=== PATIENT | female | born 1965 | race Caucasian/White ===

== ENCOUNTER 2018-05-29 15:05 | Emergency (ER) | payer BC ==
[2018-05-29] MEDS ORDERED: LORazepam 2 MG/ML VIAL ONE (15:42)
[2018-05-29 15:47] LABS: Absolute Lymphocytes (CBC) 3.5 K/uL (0.7-4.9); Absolute Monocytes 0.7 K/uL (0.1-1.3); Absolute Neutrophil 4.9 K/uL (1.8-8.0); Basophils % 0.6 % (0-1.3); Hematocrit 38.6 % (36.0-45.0); Lymphocytes % 37.8 % (15.3-44.8); MCV 89.9 fL (80-100); MPV 7.3 fL (7.6-11.3); Monocytes % 7.4 % (3.3-12.3)
[2018-05-29 15:56] LABS: Protime INR 1.02
--- NOTE | 2018-05-29 15:57 | RAD REPORT ---
EXAM DESCRIPTION: Jesus Single View05/29/2018 3:47 pm CLINICAL HISTORY: Chest pain COMPARISON: August 2017 FINDINGS: The lungs appear clear of acute infiltrate. The heart is normal size IMPRESSION: No acute abnormalities displayed
[2018-05-29 15:59] LABS: ALT/SGPT 18 U/L (12-78); AST/SGOT 17 U/L (15-37); Albumin 3.6 g/dL (3.4-5.0); Alkaline Phosphatase 87 U/L (45-117); BUN Blood Urea Nitrogen 9 mg/dL (7-18); Bicarbonate 20 mmol/L (21-32); Bilirubin Direct < 0.1 mg/dL (0-0.2); Bilirubin Total 0.2 mg/dL (0.2-1.0); Glucose Level 98 mg/dL (74-106); Magnesium 1.9 mg/dL (1.8-2.4); NT PRO-BNP 234 pg/mL (<125); Protein, Total 6.6 g/dL (6.4-8.2); Sodium Level 127 mmol/L (136-145)
[2018-05-29] MEDS ORDERED: NA CHLORIDE 0.9% 1,000 ML ONE (16:52)
--- NOTE | 2018-05-29 17:31 | ER ---
Nurse's Notes [facility] Name: Pratibha Jennings Age: 52 yrs Sex: Female : 1965 Arrival Date: 05/29/2018 Time: 15:08 Bed 6 Private MD: Joseph Rouse T Diagnosis: Anxiety disorder, unspecified;Essential (primary) hypertension Presentation: 05/29 15:17 Presenting complaint: Patient states: problems for two weeks. today is worse. headache, ch feeling like my heart is beating in my chest, nausea. before I came in, my blood pressure was 197/122, and my heart rate was 130. I feel SOB and extremely nauseous. two weeks ago I abruptly stopped my duloxitine, and then these issues started. Transition of care: patient was not received from another setting of care. Onset of symptoms was May 14, 2018. Risk Assessment: Do you want to hurt yourself or someone else? Patient reports no desire to harm self or others. Initial Sepsis Screen: Does the patient meet any 2 criteria? No. Patient's initial sepsis screen is negative. Does the patient have a suspected source of infection? No. Patient's initial sepsis screen is negative. Care prior to arrival: None. 15:17 Method Of Arrival: Ambulatory 15:17 Acuity: NUSRAT 3 ch Triage Assessment: 15:21 General: Appears in no apparent distress. comfortable, Behavior is calm, cooperative, ch appropriate for age. Pain: Complains of pain in head Pain currently is 8 out of 10 on a pain scale. Pain began gradually, weeks ago. Neuro: Level of Consciousness is awake, alert, obeys commands, Oriented to person, place, time, situation, Carpenter/Labor are equal bilaterally Moves all extremities. Full function Gait is steady, Speech is normal, Facial symmetry appears normal, Facial symmetry: tongue is midline, Pupils are PERRLA, Reports dizziness, headache. Cardiovascular: Reports chest pain, lightheadedness, nausea, palpitations, shortness of breath, Heart tones S1 S2 present Capillary refill < 3 seconds in bilateral fingers toes Clubbing of nail beds is absent Patient's skin is warm and dry. Pulses are all present. Edema is absent. Rhythm is sinus rhythm Chest pain is denied pt describes her chest pressure and feeling her heart pounding. Respiratory: Reports shortness of breath Airway is patent Respiratory effort is even, unlabored, Breath sounds are clear bilaterally. GI: Abdomen is round non-distended, Bowel sounds present X 4 quads. Abd is soft and non tender X 4 quads. Reports constipation. Derm: Skin is pink, warm \T\ dry. 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 - Social history:: Smoking status: Patient uses tobacco products, smokes one-half pack cigarettes per day, Patient uses alcohol, occasionally. Patient/guardian denies using street drugs. - Ebola Screening: : Patient negative for fever greater than or equal to 101.5 degrees Fahrenheit, and additional compatible Ebola Virus Disease symptoms Patient denies exposure to infectious person Patient denies travel to an Ebola-affected area in the 21 days before illness onset No symptoms or risks identified at this time. Screenin:25 Abuse screen: Denies threats or abuse. Denies injuries from another. Nutritional screening: No deficits noted. Tuberculosis screening: No symptoms or risk factors identified. Fall Risk None identified. Assessment: 15:25 Reassessment: Patient appears in no apparent distress at this time. Patient and/or family updated on plan of care and expected duration. Pain level reassessed. Patient is alert, oriented x 3, equal unlabored respirations, skin warm/dry/pink. General: Behavior is anxious. GI: Reports constipation, nausea. 15:35 Reassessment: Patient appears in no apparent distress at this time. No changes from previously documented assessment. Patient and/or family updated on plan of care and expected duration. Pain level reassessed. Patient is alert, oriented x 3, equal unlabored respirations, skin warm/dry/pink. GI: Abdomen is round non-distended, Bowel sounds present X 4 quads. Abd is soft and non tender X 4 quads. Reports. 17:01 Reassessment: Patient appears in no apparent distress at this time. Patient and/or family updated on plan of care and expected duration. Pain level reassessed. Patient is alert, oriented x 3, equal unlabored respirations, skin warm/dry/pink. pt sleeping in room states she feels much better. 17:38 Reassessment: p refuses to give urine sample for fourth time. pt to be discharged per eliezer. Vital Signs: 15:21 BP 147 / 97; Pulse 99; Resp 22; Temp 97.7; Pulse Ox 99% on R/A; Weight 58.06 kg; Height 5 ft. 5 in. (165.10 cm); Pain 8/10; 17:01 BP 125 / 88; Pulse 82; Resp 12; Temp 97.3; Pulse Ox 97% on R/A; Pain 0/10; ch 17:38 BP 166 / 81; Pulse 83; Resp 14; Temp 97.6; Pulse Ox 99% on R/A; Pain 0/10; ch 15:21 Body Mass Index 21.30 (58.06 kg, 165.10 cm) ED Course: 15:08 Patient arrived in ED. mr 15:08 Joseph Rouse MD is Private Physician. mr 15:12 [facility] Bren[facility]. jr8 15:13 Fransico Garrido MD is Attending Physician. jr8 15:16 Mayte Landa, ANGELA is Primary Nurse. 15:19 Triage completed. 15:21 Arm band placed on left wrist. Patient placed in an exam room, on a stretcher, on air sampling and monitoring, on pulse oximetry. 15:25 No apparent distress. Resting quietly. 15:25 Patient has correct armband on for positive identification. Placed in gown. Bed in low position. Call light in reach. Side rails up X 1. Adult w/ patient. 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 Pulse ox on. NIBP on. Warm blanket given. 15:25 No provider procedures requiring assistance completed. 15:32 EKG done, by dental laboratory technology teacher. reviewed by Eliezer DOWLING. sm3 15:35 Inserted saline lock: 20 gauge in right forearm, using aseptic technique. Blood ch collected. 15:36 Basic Metabolic Panel Sent. ch 15:37 CBC with Diff Sent. ch 15:37 LFT's Sent. ch 15:37 Magnesium Sent. ch 15:37 NT PRO-BNP Sent. ch 15:37 PT-INR Sent. ch 15:37 Troponin (emerg Dept Use Only) Sent. ch 15:40 [facility]iezer Brenner [facility]. jr8 15:43 X-ray completed. Portable x-ray completed in exam room. Patient tolerated procedure jr1 well. 15:44 XRAY Chest (1 view) In Process Unspecified. EDMS 17:19 Von Chaves MD is Referral Physician. jr8 17:38 IV discontinued, intact, bleeding controlled, No redness/swelling at site. Pressure ch dressing applied. Administered Medications: 15:45 Drug: Ativan 1 mg Route: IVP; Site: right forearm; ch 17:03 Follow up: Response: No adverse reaction; Marked relief of symptoms ch 16:40 Drug: NS 0.9% 1000 ml Route: IV; Rate: 1000 ml; Site: right forearm; ch 17:40 Follow up: IV Status: Completed infusion; IV Intake: 1000ml ch Intake: 17:40 IV: 1000ml; Total: 1000ml. ch Outcome: 17:20 Discharge ordered by . jr8 17:38 Discharged to home ambulatory, with family. ch 17:38 Condition: stable 17:38 Discharge instructions given to patient, family, Instructed on discharge instructions, follow up and referral plans. no drinking with medication, medication usage, Demonstrated understanding of instructions, follow-up care, medications, Prescriptions given X 1. 17:43 Patient left the ED. ch Signatures: Dispatcher [employer] EDMS Mayte Landa, RN RN Jayna Ivan mr Kay, Roselia jr1 Eliezer Brenner PA PA jr8 Sully Antonio 3
--- NOTE | 2018-05-29 17:31 | EDPHYS ---
Physician Documentation [facility] Name: Pratibha Jennings Age: 52 yrs Sex: Female : 1965 Arrival Date: 05/29/2018 Time: 15:08 Bed 6 Private MD: Joseph Rouse T ED Physician Fransico Garrido HPI: 05/29 15:29 This 52 yrs old Female presents to ER via Ambulatory with complaints of High jr8 Blood Pressure, Nausea, Breathing Difficulty. 15:29 Onset: The symptoms/episode began/occurred acutely, today. Modifying factors: The jr8 symptoms are aggravated by activity, stress. Associated signs and symptoms: Pertinent positives: chest pain, dyspnea, nausea. Severity of symptoms: At its worst the blood pressure was moderate, in the emergency department the blood pressure is improved. The patient has experienced a previous episode. The patient has not recently seen a physician. Patient stated that she recently discontinued her duloxetine about 2 weeks ago. Since then has had increased blood pressure and anxiety. Now feels short of breath and has had chest tightness. Today became increasingly worse. Stated that her blood pressure was 190/110 . 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 ch Historical: - Allergies: 15:21 Iodine; ch - Home Meds: 15:21 Ambien 5 mg Oral tab 1 tab once daily [Active]; gabapentin 600 mg Oral tab 1 tab daily ch [Active]; morphine 15 mg Oral tab 1 tab every 4 hours [Active]; tizanidine 4 mg Oral cap 1 cap [Active]; Lipitor 40 mg Oral tab 1 tab once daily [Active]; lidocaine patch [Active]; - PMHx: 15:21 Back pain; Degenerative disc disease; Hypertension; Hyperlipidemia; Chronic pain; ch - PSHx: 15:21 back surgeries; heath knee; ch - Immunization history:: Adult Immunizations up to date, Last tetanus immunization: up to date Flu vaccine is up to date. - Social history:: Smoking status: Patient uses tobacco products, smokes one-half pack cigarettes per day, Patient uses alcohol, occasionally. Patient/guardian denies using street drugs. - Ebola Screening: : Patient negative for fever greater than or equal to 101.5 degrees Fahrenheit, and additional compatible Ebola Virus Disease symptoms Patient denies exposure to infectious person Patient denies travel to an Ebola-affected area in the 21 days before illness onset No symptoms or risks identified at this time. ROS: 15:54 Eyes: Negative for injury, pain, redness, and discharge, ENT: Negative for injury, jr8 pain, and discharge, Neck: Negative for injury, pain, and swelling, Back: Negative for injury and pain, MS/Extremity: Negative for injury and deformity, Skin: Negative for injury, rash, and discoloration, Neuro: Negative for headache, weakness, numbness, tingling, and seizure. 15:54 Cardiovascular: Positive for chest pain, Negative for edema, orthopnea, palpitations, paroxysmal nocturnal dyspnea. 15:54 Respiratory: Positive for shortness of breath, Negative for cough, dyspnea on exertion, hemoptysis, orthopnea, pleurisy, sputum production. 15:54 Abdomen/GI: Positive for nausea, Negative for abdominal pain, vomiting, diarrhea, abdominal cramps, abdominal distension, anorexia, dysphagia, hematemesis, black/tarry stool, rectal pain, rectal bleeding, bowel incontinence, flatulence. Exam: 16:17 Eyes: Pupils equal round and reactive to light, extra-ocular motions intact. Lids and jr8 lashes normal. Conjunctiva and sclera are non-icteric and not injected. Cornea within normal limits. Periorbital areas with no swelling, redness, or edema. ENT: Nares patent. No nasal discharge, no septal abnormalities noted. Tympanic membranes are normal and external auditory canals are clear. Oropharynx with no redness, swelling, or masses, exudates, or evidence of obstruction, uvula midline. Mucous membranes moist. Neck: Trachea midline, no thyromegaly or masses palpated, and no cervical lymphadenopathy. Supple, full range of motion without nuchal rigidity, or vertebral point tenderness. No Meningismus. Chest/axilla: Normal chest wall appearance and motion. Nontender with no deformity. No lesions are appreciated. Cardiovascular: Regular rate and rhythm with a normal S1 and S2. No gallops, murmurs, or rubs. Normal PMI, no JVD. No pulse deficits. Respiratory: Lungs have equal breath sounds bilaterally, clear to auscultation and percussion. No rales, rhonchi or wheezes noted. No increased work of breathing, no retractions or nasal flaring. Abdomen/GI: Soft, non-tender, with normal bowel sounds. No distension or tympany. No guarding or rebound. No evidence of tenderness throughout. Back: No spinal tenderness. No costovertebral tenderness. Full range of motion. Skin: Warm, dry with normal turgor. Normal color with no rashes, no lesions, and no evidence of cellulitis. MS/ Extremity: Pulses equal, no cyanosis. Neurovascular intact. Full, normal range of motion. Neuro: Awake and alert, GCS 15, oriented to person, place, time, and situation. Cranial nerves II-XII grossly intact. Motor strength 5/5 in all extremities. Sensory grossly intact. Cerebellar exam normal. Normal gait. 16:17 Constitutional: The patient appears alert, awake, anxious. 16:17 ECG was reviewed by the Attending Physician. Vital Signs: 15:21 BP 147 / 97; Pulse 99; Resp 22; Temp 97.7; Pulse Ox 99% on R/A; Weight 58.06 kg; Height ch 5 ft. 5 in. (165.10 cm); Pain 8/10; 17:01 BP 125 / 88; Pulse 82; Resp 12; Temp 97.3; Pulse Ox 97% on R/A; Pain 0/10; ch 17:38 BP 166 / 81; Pulse 83; Resp 14; Temp 97.6; Pulse Ox 99% on R/A; Pain 0/10; ch 15:21 Body Mass Index 21.30 (58.06 kg, 165.10 cm) ch MDM: 15:13 Patient medically screened. [facility] 17:23 Data reviewed: vital signs, nurses notes, lab test result(s), EKG, radiologic studies, [facility] plain films, and as a result, I will discharge patient. Data interpreted: Pulse oximetry: on room air is 97 %. Interpretation: normal. Counseling: I had a detailed discussion with the patient and/or guardian regarding: the historical points, exam findings, and any diagnostic results supporting the discharge/admit diagnosis, lab results, radiology results, the need for outpatient follow up, a family practitioner, to return to the emergency department if symptoms worsen or persist or if there are any questions or concerns that arise at home. Response to treatment: the patient's symptoms have markedly improved after treatment. ED course: Patient feeling much better. Explained to her that she has probably a mild hypertension that needs further f/u and treatment. Needs to be back on anti anxiety medication as well. Family and patient agrees and will follow up with PCP in next 48 hours . 05/29 15:28 Order name: Basic Metabolic Panel; Complete Time: 16:05/29 15:28 Order name: CBC with Diff; Complete Time: 16:05/29 15:28 Order name: LFT's; Complete Time: 16:05/29 15:28 Order name: Magnesium; Complete Time: 16:05/29 15:28 Order name: NT PRO-BNP; Complete Time: 16:05/29 15:28 Order name: PT-INR; Complete Time: 16:05/29 15:28 Order name: Troponin (emerg Dept Use Only); Complete Time: 16:05/29 15:28 Order name: XRAY Chest (1 view); Complete Time: 16:05/29 15:28 Order name: EKG; Complete Time: 15:30 05/29 15:28 Order name: Cardiac monitoring; Complete Time: 15:05/29 15:28 Order name: DD; Complete Time: 16:05/29 15:28 Order name: EKG - Nurse/Tech; Complete Time: 15:05/29 15:28 Order name: IV Saline Lock; Complete Time: :05/29 15:28 Order name: Labs collected and sent; Complete Time: 15:05/29 15:28 Order name: O2 Per Protocol; Complete Time: 15:05/29 15:28 Order name: O2 Sat Monitoring; Complete Time: :36 EC:17 Rate is 92 beats/min. Rhythm is regular, Normal Sinus Rhythm. QRS Jenkins is Normal. [place] jr8 interval is normal at 132 msec. QRS interval is normal at 78 msec. QT interval is normal at 417 msec. No Q waves. T waves are Flattened in lead aVL. No ST changes noted. Clinical impression: NSR w/ Non-specific ST/T Changes and LVH. Interpreted by me. Reviewed by me. Administered Medications: 15:45 Drug: Ativan 1 mg Route: IVP; Site: right forearm; 17:03 Follow up: Response: No adverse reaction; Marked relief of symptoms 16:40 Drug: NS 0.9% 1000 ml Route: IV; Rate: 1000 ml; Site: right forearm; 17:40 Follow up: IV Status: Completed infusion; IV Intake: 1000ml Disposition: 05/30 15:56 Co-signature as Attending Physician, Fransico Garrido MD Available for consultation at ps1 all times.. Disposition: 05/29/18 17:20 Discharged to Home. Impression: Anxiety disorder, unspecified, Essential (primary) hypertension. - Condition is Stable. - Discharge Instructions: Panic Attacks, Hypertension, Generalized Anxiety Disorder. - Prescriptions for Hydroxyzine HCl 50 mg Oral Tablet - take 1 tablet by ORAL route every 8 hours As needed; 20 tablet. - Medication Reconciliation Form, Thank You Letter, Antibiotic Education, Prescription Opioid Use form. - Follow up: Von Chaves MD; When: 1 - 2 days; Reason: Recheck today's complaints, Continuance of care, Re-evaluation by your physician. - Problem is new. - Symptoms have improved. Signatures: Dispatcher [employer] EDWA Mayte Landa RN RN Eliezer Brenner PA PA jr8 Fransico Garrido MD MD ps1 Corrections: (The following items were deleted from the chart) 05/29 17:43 17:20 05/29/2018 17:20 Discharged to Home. Impression: Anxiety disorder, unspecified; ch Essential (primary) hypertension. Condition is Stable. Forms are Medication Reconciliation Form, Thank You Letter, Antibiotic Education, Prescription Opioid Use. Follow up: Von Chaves; When: 1 - 2 days; Reason: Recheck today's complaints, Continuance of care, Re-evaluation by your physician. Problem is new. Symptoms have improved. jr8
--- NOTE | 2018-05-29 22:13 | EKG ---
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
== END 2018-05-29 17:43 | disposition home or self-care (01) ==
LOC: ER 15:05
DX: F41.9 Anxiety disorder, unspecified (principal); I10 Essential (primary) hypertension; E78.5 Hyperlipidemia, unspecified; F17.210 Nicotine dependence, cigarettes, uncomplicated; Z91.048 Other nonmedicinal substance allergy status
CPT/HCPCS: 36415; 71045; 80048; 80076; 83735; 83880; 84484; 85025; 85379; 85610; 93005; 96361; 96374; 99285; J7030

== ENCOUNTER 2018-06-02 15:42 | Emergency (ER) | payer BC ==
--- OUTSIDE RECORDS SUMMARY | 2018-06-02 15:45 | XMS REPORT | Clinical Summary ---
:1965 Author Organization [facility] Address [address] [place] [address] Care Team Providers Name Role Phone Provider, Unknown Primary Care Provider Unavailable Allergies Active Allergy Reactions Severity Noted Date Comments Betadine Surgi-Prep Hives, Rash Low 03/31/2016 Patient reports blistering and rash Patient reports blistering and rash Dye 01/04/2018 Radiology DYE Contrast Current Medications Prescription Sig. Disp. Refills Start Date End Date Status zolpidem (AMBIEN) 5 Take 5 mg by Active MG tablet mouth nightly as needed for sleep. gabapentin Take 600 mg by Active (NEURONTIN) 600 mg mouth 3 (three) tablet times a day. morPHINE (MSIR) 15 Take 15 mg by Active MG tablet mouth every 12 (twelve) hours as needed for severe pain. oxyCODone Take 10 mg by Active (ROXICODONE) 10 MG mouth every 6 tablet (six) hours as needed for moderate pain. tiZANidine Take 4 mg by Active (ZANAFLEX) 4 MG mouth every 8 tablet (eight) hours as needed for muscle spasms. ondansetron ODT Take 4 mg by Active (ZOFRAN-ODT) 4 MG mouth every 8 disintegrating (eight) hours as tablet needed for nausea or vomiting. atorvastatin Take 1 tablet by 2 01/11/2018 Active (LIPITOR) 20 MG mouth daily. tablet pantoprazole Take 1 tablet by 0 01/05/2018 Active (PROTONIX) 40 MG EC mouth daily. tablet metoprolol tartrate Take 25 mg by 10/06/20 Discontinued (LOPRESSOR) 25 mg mouth 2 (two) 17 tablet times a day. diazePAM (VALIUM) 5 Take 5 mg by 01/04/20 Discontinued MG tablet mouth every 6 18 (six) hours as needed for anxiety. enalapril (VASOTEC) Take 20 mg by 10/06/20 Discontinued 20 MG tablet mouth daily. 17 tiZANidine Take 1 tablet by 10/06/20 Discontinued (ZANAFLEX) 4 MG mouth 3 (three) 17 tablet times a day. oxyCODone Take 1 tablet by 10/06/20 Discontinued (ROXICODONE) 10 MG mouth 4 (four) 17 tablet times a day. morPHINE (MSIR) 15 Take 1 tablet (15 10/06/2017 10/21/20 MG tablet mg total) by 17 mouth every 12 (twelve) hours for 15 days Earliest Fill Date: 10/06/17. Max Daily Amount: 30 mg atorvastatin Take 1 tablet (40 30 tablet 0 10/06/2017 11/05/20 (LIPITOR) 40 MG mg total) by 17 tablet mouth nightly for 30 days. benzonatate Take 1 capsule 10/06/2017 11/05/20 (TESSALON) 100 MG (100 mg total) by 17 capsule mouth 3 (three) times a day as needed for cough for up to 30 days. ipratropium-albuter Take 3 mL by 540 mL 0 10/06/2017 11/05/20 ol (DUO-NEB) nebulization 17 0.5-2.5 mg/mL every 4 (four) nebulizer hours for 30 days. enoxaparin Inject 0.4 mL (40 12 mL 0 10/06/2017 10/21/20 (LOVENOX) 40 mg/0.4 mg total) under 17 mL syringe the skin daily for 15 days. nafcillin (UNIPEN) Infuse 2 g into a 10/06/2017 10/23/20 2 grams in 100 mL venous catheter 17 Mini-Bag Plus every 4 (four) hours for 17 days. potassium chloride Take 3 tablets 90 tablet 0 10/06/2017 10/06/20 Discontinued (K-DUR) 20 MEQ CR (60 mEq total) by 17 tablet mouth daily for 30 days. nystatin Apply topically 2 15 g 0 10/06/2017 11/05/20 (MYCOSTATIN) (two) times a day 17 100,000 unit/gram as needed (fungal powder infections) for up to [address] 2 patches 30 patch 0 10/06/2017 11/05/20 (LIDODERM) 5 % on the skin daily 17 for 30 days. Remove & Discard patch within 12 hours or as directed by SYMBICORT 80-4.5 Inhale 2 puffs 2 4 11/05/2017 01/19/20 Discontinued mcg/actuation (two) times a 18 inhaler day. Active Problems Problem Noted Date Gastroesophageal reflux disease 01/20/2018 Cavitary lesion of lung 01/04/2018 Hemoptysis 01/04/2018 History of tobacco use 01/04/2018 Chronic obstructive pulmonary disease 01/04/2018 Septic shock 09/25/2017 Acute respiratory failure 09/25/2017 Hyponatremia 09/25/2017 Elevated troponin 09/25/2017 Encounters Date Type Specialty Care Team Description 01/19/2018 Office Visit Pulmonology Ravi Abreu Chronic obstructive pulmonary disease, unspecified COPD type (Primary Dx); MD Isaiah Cavitary lesion of lung; History of tobacco use; Gastroesophageal reflux disease, esophagitis presence not specified 01/19/2018 Clinical Support Pulmonology Mary Cavitary lesion of lung; Melisa Hemoptysis 01/19/2018 Hospital Encounter Radiology Ravi Abreu Cavitary lesion of lung; MD Isaiah Hemoptysis 01/04/2018 Office Visit Pulmonology Ravi Abreu Cavitary lesion of lung ( Primary Dx); MD Isaiah Hemoptysis; History of tobacco abuse; Chronic obstructive pulmonary disease, unspecified COPD type 01/04/2018 Hospital Encounter Radiology Bernardino Shah, Pneumonia, organism unspecified(486); Postoperative septicemia 01/04/2018 Transcribe Orders Radiology Bernardino Shah, Pneumonia, organism unspecified(486) (Primary Dx); Postoperative septicemia 09/25/2017 - Hospital Encounter General Internal Todd Conte Elevated troponin (Primary Dx); 10/06/2017 Vania Garduno MD Septic shock; Ravindra Shah Acute respiratory failure with hypoxia; MD Teresa Hyponatremia after 06/01/2017 Immunizations Name Dates Previously Given Next Due FLUCELVAX QUAD PF (0.5mL syringe) 10/06/2017 Pneumococcal Conjugate 13-Valent 10/06/2017 Social History Tobacco Use Types Packs/Day Years Used Date Former Smoker Cigarettes 0.5 7 Quit: 08/28/2017 Smokeless Tobacco: Never Used Tobacco Cessation: Ready to Quit: Yes; Counseling Given: Yes Alcohol Use Drinks/Week oz/Week Comments No Sex Assigned at Date Recorded Not on file Last Filed Vital Signs Vital Sign Reading Time Taken Blood Pressure 124/76 01/19/2018 11:58 AM HAIR ASSISTANT Pulse 62 01/19/2018 11:58 AM HAIR ASSISTANT Temperature 36.3 C (97.4 F) 01/19/2018 11:58 AM HAIR ASSISTANT Respiratory Rate 20 10/06/2017 3:01 PM HAIR ASSISTANT Oxygen Saturation 100% 01/19/2018 11:58 AM HAIR ASSISTANT Inhaled Oxygen Concentration - - Weight 62.1 kg (137 lb) 01/19/2018 11:58 AM HAIR ASSISTANT Height 163.8 cm (5' 4.5") 01/19/2018 11:58 AM HAIR ASSISTANT Body Mass Index 23.15 01/19/2018 11:58 AM HAIR ASSISTANT Plan of Treatment Health Maintenance Due Date Last Done Comments CERVICAL CANCER SCREENING 1985 BREAST CANCER SCREENING 2014 SHINGRIX VACCINE (#1) 2014 INFLUENZA VACCINE 06/28/2018 10/06/2017 COLON CANCER SCREENING 10/06/2027 10/06/2017, 09/26/2017 Implants Implanted Type Area Payroll Services Analyst Device Expiration Date Model / Serial Identifier / Lot Stimulator Stimulator MEDTRONIC / / Procedures Procedure Name Priority Date/Time Associated Comments Diagnosis CT CHEST WO CONTRAST Routine 01/19/2018 9:26 Cavitary lesion of Results for this AM HAIR ASSISTANT lung procedure are in Hemoptysis the results section. XR CHEST 2 VW Routine 01/04/2018 12:09 Pneumonia, Results for this PM HAIR ASSISTANT organism procedure are in unspecified(486) the results Postoperative section. septicemia ESTIMATED GFR Routine 10/06/2017 12:30 Results for this PM HAIR ASSISTANT procedure are in the results section. MAGNESIUM LEVEL Routine 10/06/2017 12:30 Results for this PM HAIR ASSISTANT procedure are in the results section. COMPREHENSIVE METABOLIC Routine 10/06/2017 12:30 Results for this PANEL PM HAIR ASSISTANT procedure are in the results section. HC COMPLETE BLD COUNT Routine 10/06/2017 12:30 Results for this W/AUTO DIFF PM HAIR ASSISTANT procedure are in the results section. OCCULT BLOOD, STOOL Routine 10/06/2017 7:30 Results for this AM HAIR ASSISTANT procedure are in the results section. TRANSFUSE RED BLOOD Routine 10/06/2017 3:58 CELLS AM HAIR ASSISTANT PREPARE RBC Timed 10/05/2017 6:35 Results for this PM HAIR ASSISTANT procedure are in the results section. TYPE AND SCREEN Timed 10/05/2017 6:35 Results for this PM HAIR ASSISTANT procedure are in the results section. XR CHEST 1 VW PORTABLE Routine 10/05/2017 6:48 Results for this AM HAIR ASSISTANT procedure are in the results section. ESTIMATED GFR Routine 10/05/2017 6:10 Results for this AM HAIR ASSISTANT procedure are in the results section. HC COMPLETE BLD COUNT Routine 10/05/2017 6:10 Results for this W/AUTO DIFF AM HAIR ASSISTANT procedure are in the results section. COMPREHENSIVE METABOLIC Routine 10/05/2017 6:10 Results for this PANEL AM HAIR ASSISTANT procedure are in the results section. ESTIMATED GFR Routine 10/04/2017 8:40 Results for this PM HAIR ASSISTANT procedure are in the results section. MAGNESIUM LEVEL Routine 10/04/2017 8:40 Results for this PM HAIR ASSISTANT procedure are in the results section. HC COMPLETE BLD COUNT Routine 10/04/2017 8:40 Results for this W/AUTO DIFF PM HAIR ASSISTANT procedure are in the results section. BASIC METABOLIC PANEL Routine 10/04/2017 8:40 Results for this PM HAIR ASSISTANT procedure are in the results section. HC US GUIDED VASCULAR Routine 10/04/2017 5:45 Results for this ACCESS PM HAIR ASSISTANT procedure are in the results section. HC CVL PICC INSERT 5 Routine 10/04/2017 5:45 Results for this YRS OR > PM HAIR ASSISTANT procedure are in the results section. POC GLUCOSE Routine 10/04/2017 7:26 Results for this AM HAIR ASSISTANT procedure are in the results section. POC GLUCOSE Routine 10/03/2017 9:02 Results for this PM HAIR ASSISTANT procedure are in the results section. POC GLUCOSE Routine 10/03/2017 4:20 Results for this PM HAIR ASSISTANT procedure are in the results section. POC GLUCOSE Routine 10/03/2017 11:25 Results for this AM HAIR ASSISTANT procedure are in the results section. POC GLUCOSE Routine 10/03/2017 7:42 Results for this AM HAIR ASSISTANT procedure are in the results section. ESTIMATED GFR Routine 10/03/2017 6:30 Results for this AM HAIR ASSISTANT procedure are in the results section. BASIC METABOLIC PANEL Routine 10/03/2017 6:30 Results for this AM HAIR ASSISTANT procedure are in the results section. HC COMPLETE BLD COUNT Routine 10/03/2017 6:30 Results for this W/AUTO DIFF AM HAIR ASSISTANT procedure are in the results section. ESTIMATED GFR Routine 10/03/2017 6:30 Results for this AM HAIR ASSISTANT procedure are in the results section. CREATININE LEVEL Routine 10/03/2017 6:30 Results for this AM HAIR ASSISTANT procedure are in the results section. POC GLUCOSE Routine 10/02/2017 8:43 Results for this PM HAIR ASSISTANT procedure are in the results section. POC GLUCOSE Routine 10/02/2017 5:20 Results for this PM HAIR ASSISTANT procedure are in the results section. ESTIMATED GFR Routine 10/02/2017 1:35 Results for this PM HAIR ASSISTANT procedure are in the results section. IONIZED CALCIUM Routine 10/02/2017 1:35 Results for this PM HAIR ASSISTANT procedure are in the results section. MAGNESIUM LEVEL Routine 10/02/2017 1:35 Results for this PM HAIR ASSISTANT procedure are in the results section. BASIC METABOLIC PANEL Routine 10/02/2017 1:35 Results for this PM HAIR ASSISTANT procedure are in the results section. POC GLUCOSE Routine 10/02/2017 12:25 Results for this PM HAIR ASSISTANT procedure are in the results section. ARTERIAL BLOOD GAS STAT 10/02/2017 10:50 Results for this AM HAIR ASSISTANT procedure are in the results section. POC GLUCOSE Routine 10/02/2017 8:31 Results for this AM HAIR ASSISTANT procedure are in the results section. XR CHEST 1 VW PORTABLE Routine 10/02/2017 8:18 Results for this AM HAIR ASSISTANT procedure are in the results section. CONSULT TO OSTOMY CARE Routine 10/02/2017 7:08 NURSE AM HAIR ASSISTANT POC GLUCOSE Routine 10/02/2017 5:09 Results for this AM HAIR ASSISTANT procedure are in the results section. IONIZED CALCIUM, Routine 10/02/2017 4:08 Results for this ARTERIAL AM HAIR ASSISTANT procedure are in the results section. ARTERIAL BLOOD GAS Routine 10/02/2017 4:08 Results for this AM HAIR ASSISTANT procedure are in the results section. SMEAR REVIEW Routine 10/02/2017 4:00 Results for this AM HAIR ASSISTANT procedure are in the results section. CBC WITH PLATELET AND Routine 10/02/2017 4:00 Results for this DIFFERENTIAL AM HAIR ASSISTANT procedure are in the results section. ESTIMATED GFR Routine 10/02/2017 4:00 Results for this AM HAIR ASSISTANT procedure are in the results section. PHOSPHORUS LEVEL Routine 10/02/2017 4:00 Results for this AM HAIR ASSISTANT procedure are in the results section. MAGNESIUM LEVEL Routine 10/02/2017 4:00 Results for this AM HAIR ASSISTANT procedure are in the results section. BASIC METABOLIC PANEL Routine 10/02/2017 4:00 Results for this AM HAIR ASSISTANT procedure are in the results section. POC GLUCOSE Routine 10/02/2017 1:02 Results for this AM CDT procedure are in the results section. POC GLUCOSE Routine 10/01/2017 8:55 Results for this PM CDT procedure are in the results section. POC GLUCOSE Routine 10/01/2017 5:18 Results for this PM CDT procedure are in the results section. POC GLUCOSE Routine 10/01/2017 1:15 Results for this PM CDT procedure are in the results section. POC GLUCOSE Routine 10/01/2017 8:51 Results for this AM CDT procedure are in the results section. XR CHEST 1 VW PORTABLE Routine 10/01/2017 7:10 Results for this AM CDT procedure are in the results section. ESTIMATED GFR STAT 10/01/2017 5:45 Results for this AM CDT procedure are in the results section. IONIZED CALCIUM STAT 10/01/2017 5:45 Results for this AM CDT procedure are in the results section. PHOSPHORUS LEVEL STAT 10/01/2017 5:45 Results for this AM CDT procedure are in the results section. MAGNESIUM LEVEL STAT 10/01/2017 5:45 Results for this AM CDT procedure are in the results section. BASIC METABOLIC PANEL STAT 10/01/2017 5:45 Results for this AM CDT procedure are in the results section. POC GLUCOSE Routine 10/01/2017 4:50 Results for this AM CDT procedure are in the results section. IONIZED CALCIUM, Routine 10/01/2017 4:35 Results for this ARTERIAL AM CDT procedure are in the results section. ARTERIAL BLOOD GAS Routine 10/01/2017 4:35 Results for this AM CDT procedure are in the results section. POC GLUCOSE Routine 10/01/2017 12:57 Results for this AM CDT procedure are in the results section. ESTIMATED GFR STAT 09/30/2017 11:55 Results for this PM CDT procedure are in the results section. BASIC METABOLIC PANEL STAT 09/30/2017 11:55 Results for this PM CDT procedure are in the results section. POC GLUCOSE Routine 09/30/2017 8:47 Results for this PM CDT procedure are in the results section. SPUTUM CULTURE Routine 09/30/2017 4:58 Results for this PM CDT procedure are in the results section. POC GLUCOSE Routine 09/30/2017 4:37 Results for this PM CDT procedure are in the results section. MANUAL DIFFERENTIAL Routine 09/30/2017 3:29 Results for this PM CDT procedure are in the results section. ESTIMATED GFR Routine 09/30/2017 3:29 Results for this PM CDT procedure are in the results section. BASIC METABOLIC PANEL Routine 09/30/2017 3:29 Results for this PM CDT procedure are in the results section. CBC WITH PLATELET AND Routine 09/30/2017 3:29 Results for this DIFFERENTIAL PM CDT procedure are in the results section. POC GLUCOSE Routine 09/30/2017 1:03 Results for this PM CDT procedure are in the results section. POC GLUCOSE Routine 09/30/2017 9:17 Results for this AM CDT procedure are in the results section. PHOSPHORUS LEVEL Routine 09/30/2017 5:30 Results for this AM CDT procedure are in the results section. MAGNESIUM LEVEL Routine 09/30/2017 5:30 Results for this AM CDT procedure are in the results section. ESTIMATED GFR Routine 09/30/2017 5:30 Results for this AM CDT procedure are in the results section. BASIC METABOLIC PANEL Routine 09/30/2017 5:30 Results for this AM CDT procedure are in the results section. XR CHEST 1 VW PORTABLE Routine 09/30/2017 5:19 Results for this AM CDT procedure are in the results section. POC GLUCOSE Routine 09/30/2017 4:36 Results for this AM CDT procedure are in the results section. IONIZED CALCIUM, Routine 09/30/2017 4:33 Results for this ARTERIAL AM CDT procedure are in the results section. ARTERIAL BLOOD GAS Routine 09/30/2017 4:33 Results for this AM CDT procedure are in the results section. POC GLUCOSE Routine 09/30/2017 12:46 Results for this AM CDT procedure are in the results section. CT CHEST WO CONTRAST Routine 09/29/2017 9:38 Results for this PM CDT procedure are in the results section. POC GLUCOSE Routine 09/29/2017 8:36 Results for this PM CDT procedure are in the results section. POC GLUCOSE Routine 09/29/2017 5:16 Results for this PM CDT procedure are in the results section. POC GLUCOSE Routine 09/29/2017 12:56 Results for this PM CDT procedure are in the results section. URINALYSIS SCREEN AND Routine 09/29/2017 12:37 Results for this MICROSCOPY, WITH REFLEX PM CDT procedure are in TO CULTURE the results section. GRAM STAIN Routine 09/29/2017 12:37 Results for this PM CDT procedure are in the results section. URINE CULTURE Routine 09/29/2017 12:37 Results for this PM CDT procedure are in the results section. POC GLUCOSE Routine 09/29/2017 9:07 Results for this AM CDT procedure are in the results section. ARTERIAL BLOOD GAS Routine 09/29/2017 5:03 Results for this AM CDT procedure are in the results section. POC GLUCOSE Routine 09/29/2017 4:50 Results for this AM CDT procedure are in the results section. MANUAL DIFFERENTIAL Routine 09/29/2017 4:30 Results for this AM CDT procedure are in the results section. ESTIMATED GFR Routine 09/29/2017 4:30 Results for this AM CDT procedure are in the results section. PARTIAL THROMBOPLASTIN Routine 09/29/2017 4:30 Results for this TIME (PTT) AM CDT procedure are in the results section. PROTHROMBIN TIME WITH Routine 09/29/2017 4:30 Results for this INR AM CDT procedure are in the results section. CBC WITH PLATELET AND Routine 09/29/2017 4:30 Results for this DIFFERENTIAL AM CDT procedure are in the results section. COMPREHENSIVE METABOLIC Routine 09/29/2017 4:30 Results for this PANEL AM CDT procedure are in the results section. IONIZED CALCIUM Routine 09/29/2017 3:30 Results for this AM CDT procedure are in the results section. PHOSPHORUS LEVEL Routine 09/29/2017 3:30 Results for this AM CDT procedure are in the results section. MAGNESIUM LEVEL Routine 09/29/2017 3:30 Results for this AM CDT procedure are in the results section. XR CHEST 1 VW PORTABLE Routine 09/29/2017 2:51 Results for this AM CDT procedure are in the results section. POC GLUCOSE Routine 09/29/2017 1:07 Results for this AM CDT procedure are in the results section. POC GLUCOSE Routine 09/28/2017 9:02 Results for this PM CDT procedure are in the results section. CONSULT TO SEPSIS Routine 09/28/2017 7:41 Septic shock Results for this RESPONSE TEAM PM CDT procedure are in the results section. POC GLUCOSE Routine 09/28/2017 5:05 Results for this PM CDT procedure are in the results section. POC GLUCOSE Routine 09/28/2017 11:42 Results for this AM CDT procedure are in the results section. POC GLUCOSE Routine 09/28/2017 7:33 Results for this AM CDT procedure are in the results section. ARTERIAL BLOOD GAS STAT 09/28/2017 6:32 Results for this AM CDT procedure are in the results section. MANUAL DIFFERENTIAL Routine 09/28/2017 3:50 Results for this AM CDT procedure are in the results section. MAGNESIUM LEVEL Routine 09/28/2017 3:50 Results for this AM CDT procedure are in the results section. IONIZED CALCIUM Routine 09/28/2017 3:50 Results for this AM CDT procedure are in the results section. ESTIMATED GFR Routine 09/28/2017 3:50 Results for this AM CDT procedure are in the results section. BASIC METABOLIC PANEL Routine 09/28/2017 3:50 Results for this AM CDT procedure are in the results section. CBC WITH PLATELET AND Routine 09/28/2017 3:50 Results for this DIFFERENTIAL AM CDT procedure are in the results section. ARTERIAL BLOOD GAS Routine 09/28/2017 3:46 Results for this AM CDT procedure are in the results section. XR CHEST 1 VW PORTABLE Routine 09/28/2017 2:20 Results for this AM CDT procedure are in the results section. POC GLUCOSE Routine 09/27/2017 9:30 Results for this PM CDT procedure are in the results section. MAGNESIUM LEVEL Routine 09/27/2017 7:30 Results for this PM CDT procedure are in the results section. ESTIMATED GFR Routine 09/27/2017 7:30 Results for this PM CDT procedure are in the results section. IONIZED CALCIUM Routine 09/27/2017 7:30 Results for this PM CDT procedure are in the results section. BASIC METABOLIC PANEL Routine 09/27/2017 7:30 Results for this PM CDT procedure are in the results section. POC GLUCOSE Routine 09/27/2017 5:32 Results for this PM CDT procedure are in the results section. VANCOMYCIN LEVEL, Timed 09/27/2017 12:40 Results for this TROUGH PM CDT procedure are in the results section. POC GLUCOSE Routine 09/27/2017 12:36 Results for this PM CDT procedure are in the results section. POC GLUCOSE Routine 09/27/2017 8:13 Results for this AM CDT procedure are in the results section. MANUAL DIFFERENTIAL Routine 09/27/2017 3:45 Results for this AM CDT procedure are in the results section. ESTIMATED GFR Routine 09/27/2017 3:45 Results for this AM CDT procedure are in the results section. PARTIAL THROMBOPLASTIN Routine 09/27/2017 3:45 Results for this TIME (PTT) AM CDT procedure are in the results section. PROTHROMBIN TIME WITH Routine 09/27/2017 3:45 Results for this INR AM CDT procedure are in the results section. CBC WITH PLATELET AND Routine 09/27/2017 3:45 Results for this DIFFERENTIAL AM CDT procedure are in the results section. COMPREHENSIVE METABOLIC Routine 09/27/2017 3:45 Results for this PANEL AM CDT procedure are in the results section. XR CHEST 1 VW PORTABLE Routine 09/27/2017 2:15 Results for this AM CDT procedure are in the results section. POC GLUCOSE Routine 09/26/2017 9:39 Results for this PM CDT procedure are in the results section. HEMOGLOBIN & HEMATOCRIT Routine 09/26/2017 7:45 Results for this PM CDT procedure are in the results section. POC GLUCOSE Routine 09/26/2017 4:45 Results for this PM CDT procedure are in the results section. ECHOCARDIOGRAM 2D Routine 09/26/2017 4:29 Results for this COMPLETE W MMODE PM CDT procedure are in SPECTRAL COLOR DOPPLER the results (95224) section. TRANSFUSE RED BLOOD Routine 09/26/2017 2:14 CELLS PM CDT POC GLUCOSE Routine 09/26/2017 12:51 Results for this PM CDT procedure are in the results section. VANCOMYCIN LEVEL, Timed 09/26/2017 12:30 Results for this TROUGH PM CDT procedure are in the results section. OCCULT BLOOD, STOOL Routine 09/26/2017 10:00 Results for this AM CDT procedure are in the results section. POC GLUCOSE Routine 09/26/2017 9:20 Results for this AM CDT procedure are in the results section. PREPARE RBC Timed 09/26/2017 9:15 Results for this AM CDT procedure are in the results section. TYPE AND SCREEN Timed 09/26/2017 9:15 Results for this AM CDT procedure are in the results section. VITAMIN B12 LEVEL Routine 09/26/2017 9:15 Results for this AM CDT procedure are in the results section. THYROID STIMULATING Routine 09/26/2017 9:15 Results for this HORMONE AM CDT procedure are in the results section. TOTAL IRON BINDING Routine 09/26/2017 9:15 Results for this CAPACITY AM CDT procedure are in the results section. FOLATE LEVEL Routine 09/26/2017 9:15 Results for this AM CDT procedure are in the results section. FERRITIN LEVEL Routine 09/26/2017 9:15 Results for this AM CDT procedure are in the results section. RETICULOCYTE COUNT Routine 09/26/2017 9:15 Results for this AM CDT procedure are in the results section. HEMOGLOBIN & HEMATOCRIT Routine 09/26/2017 8:00 Results for this AM CDT procedure are in the results section. CREATINE KINASE, TOTAL Timed 09/26/2017 8:00 Results for this (CPK) AM CDT procedure are in the results section. CK-MB Timed 09/26/2017 8:00 Results for this AM CDT procedure are in the results section. TROPONIN Timed 09/26/2017 8:00 Results for this AM CDT procedure are in the results section. POC GLUCOSE Routine 09/26/2017 4:52 Results for this AM CDT procedure are in the results section. CA INSERT Routine 09/26/2017 2:57 Elevated troponin Results for this CATH,ART,PERCUT,SHORTTE AM CDT procedure are in RM the results section. POC GLUCOSE Routine 09/26/2017 2:10 Results for this AM CDT procedure are in the results section. MANUAL DIFFERENTIAL Timed 09/26/2017 2:10 Results for this AM CDT procedure are in the results section. CK-MB Timed 09/26/2017 2:10 Results for this AM CDT procedure are in the results section. CREATINE KINASE, TOTAL Timed 09/26/2017 2:10 Results for this (CPK) AM CDT procedure are in the results section. ESTIMATED GFR Timed 09/26/2017 2:10 Results for this AM CDT procedure are in the results section. CBC WITH PLATELET AND Timed 09/26/2017 2:10 Results for this DIFFERENTIAL AM CDT procedure are in the results section. LACTIC ACID LEVEL Timed 09/26/2017 2:10 Results for this AM CDT procedure are in the results section. COMPREHENSIVE METABOLIC Timed 09/26/2017 2:10 Results for this PANEL AM CDT procedure are in the results section. TROPONIN Timed 09/26/2017 2:10 Results for this AM CDT procedure are in the results section. O2 SATURATION, VENOUS Routine 09/26/2017 2:10 Results for this AM CDT procedure are in the results section. MYCOPLASMA PNEUMONIAE Routine 09/26/2017 2:10 Results for this AB, IGM AM CDT procedure are in the results section. ARTERIAL BLOOD GAS Timed 09/26/2017 12:55 Results for this AM CDT procedure are in the results section. RESPIRATORY PATHOGEN Routine 09/26/2017 12:15 Results for this PANEL AM CDT procedure are in the results section. POC GLUCOSE Routine 09/25/2017 11:54 Results for this PM CDT procedure are in the results section. URINALYSIS SCREEN AND STAT 09/25/2017 10:35 Results for this MICROSCOPY, WITH REFLEX PM CDT procedure are in TO CULTURE the results section. URINE CULTURE STAT 09/25/2017 10:35 Results for this PM CDT procedure are in the results section. STREPTOCOCCUS Routine 09/25/2017 10:35 Results for this PNEUMONIAE URINARY PM CDT procedure are in ANTIGEN the results section. LEGIONELLA URINARY Routine 09/25/2017 10:35 Results for this ANTIGEN PM CDT procedure are in the results section. ARTERIAL BLOOD GAS STAT 09/25/2017 9:57 Results for this PM CDT procedure are in the results section. ECG 12-LEAD STAT 09/25/2017 9:40 Results for this PM CDT procedure are in the results section. LEGIONELLA CULTURE Routine 09/25/2017 9:30 Results for this PM CDT procedure are in the results section. XR CHEST 1 VW PORTABLE STAT 09/25/2017 8:38 Results for this PM CDT procedure are in the results section. BLOOD CULTURE, AEROBIC Routine 09/25/2017 8:35 Results for this & ANAEROBIC PM CDT procedure are in the results section. GRAM STAIN Routine 09/25/2017 8:30 Results for this PM CDT procedure are in the results section. SPUTUM CULTURE Routine 09/25/2017 8:30 Results for this PM CDT procedure are in the results section. MANUAL DIFFERENTIAL STAT 09/25/2017 8:18 Results for this PM CDT procedure are in the results section. PROTHROMBIN TIME WITH STAT 09/25/2017 8:18 Results for this INR PM CDT procedure are in the results section. PARTIAL THROMBOPLASTIN STAT 09/25/2017 8:18 Results for this TIME (PTT) PM CDT procedure are in the results section. ESTIMATED GFR STAT 09/25/2017 8:18 Results for this PM CDT procedure are in the results section. B NATRIURETIC PEPTIDE STAT 09/25/2017 8:18 Results for this PM CDT procedure are in the results section. LACTIC ACID LEVEL STAT 09/25/2017 8:18 Results for this PM CDT procedure are in the results section. CK-MB STAT 09/25/2017 8:18 Results for this PM CDT procedure are in the results section. TROPONIN STAT 09/25/2017 8:18 Results for this PM CDT procedure are in the results section. COMPREHENSIVE METABOLIC STAT 09/25/2017 8:18 Results for this PANEL PM CDT procedure are in the results section. CBC WITH PLATELET AND STAT 09/25/2017 8:18 Results for this DIFFERENTIAL PM CDT procedure are in the results section. BLOOD CULTURE, AEROBIC Routine 09/25/2017 8:18 Results for this & ANAEROBIC PM CDT procedure are in the results section. after 06/01/[address] Chest Wo Contrast (01/19/2018 9:26 AM)Only the most recent of2 resultswithin the time period is included. Narrative Performed At EXAMINATION: CT CHEST WO CONTRAST HM [facility] CLINICAL HISTORY: J98.4 Other disorders of lung, R04.2 Hemoptysis, cavitating lesions of lunghemoptysis TECHNIQUE: Multi-detector computed axial tomography (CAT) of the chest was performed without IV iodinated contrast. Axial maximum intensity projections of the chest, and sagittal and coronal computerized reformatted images of the chest were created at a workstation and archived for review. DOSE REDUCTION: CT imaging was performed with iterative reconstruction technique and/or automated exposure control to reduce radiation dose. COMPARISON: CT chest 09/29/2017 IMPRESSION: 1. Interval resolution of diffuse ground-glass opacities, cavitary pulmonary nodules, and bilateral pleural effusions consistent with treated infection and possibly edema. 2. Multiple remaining bilateral pulmonary nodules are likely postinflammatory/postinfectious, whether scar from treated infection or respiratory bronchiolitis in this patient with emphysema. 3. New 5 mm pulmonary nodule in the posterior left lung apex is indeterminate but likely inflammatory/infectious. Follow-up CT chest in 6 months advised for surveillance. FINDINGS: Interval resolution of diffuse ground-glass opacities and multifocal cavitary nodules in all lobes of the right lung. 5 mm soft tissue density nodule in the posterior left lung apex (series 2 image 23) appears new. 5 mm spiculated soft tissue density nodule in the right upper lobe at the site of previous infection is likely postinflammatory (image 38). Similarly, 5 mm irregular soft tissue density nodule in the anterior right upper lobe near the minor fissure (image 56), 3 mm irregular soft tissue density nodule centrally in the right upper lobe (image 33), and 4 mm and 3 mm irregular soft tissue density nodules in the right lower lobe (images 58 and 87) are also likely postinflammatory. Several tiny scattered bilateral nodules are probably related to inflammatory respiratory bronchiolitis in this patient with moderately severe centrilobular and paraseptal emphysema with associated multifocal linear scarring and subpleural fibrosis. Interval resolution of small bilateral pleural effusions. No pneumothorax. Heart is normal in size. Extensive and severe left and right coronary artery calcifications again seen. No pericardial effusion. Aorta is nonaneurysmal and atherosclerotic. Pulmonary artery is normal in diameter. Interval resolution of reactive mediastinal and hilar lymphadenopathy. A residual mildly enlarged lower right paratracheal lymph node measures 1.3 x 1.0 cm. Images of the upper abdomen are unremarkable. Bones are intact. A spinal stimulator is partially imaged. [facility]-[id number] Procedure Note Hm Interface, Radiology Results Incoming - 01/19/2018 9:58 AM HAIR ASSISTANT EXAMINATION: CT CHEST WO CONTRAST CLINICAL HISTORY: J98.4 Other disorders of lung, R04.2 Hemoptysis, cavitating lesions of lung hemoptysis TECHNIQUE: Multi-detector computed axial tomography (CAT) of the chest was performed without IV iodinated contrast. Axial maximum intensity projections of the chest, and sagittal and coronal computerized reformatted images of the chest were created at a workstation and archived for review. DOSE REDUCTION: CT imaging was performed with iterative reconstruction technique and/or automated exposure control to reduce radiation dose. COMPARISON: CT chest 09/29/2017 IMPRESSION: 1. Interval resolution of diffuse ground-glass opacities, cavitary pulmonary nodules, and bilateral pleural effusions consistent with treated infection and possibly edema. 2. Multiple remaining bilateral pulmonary nodules are likely postinflammatory/ postinfectious, whether scar from treated infection or respiratory bronchiolitis in this patient with emphysema. 3. New 5 mm pulmonary nodule in the posterior left lung apex is indeterminate but likely inflammatory/infectious. Follow-up CT chest in 6 months advised for surveillance. FINDINGS: Interval resolution of diffuse ground-glass opacities and multifocal cavitary nodules in all lobes of the right lung. 5 mm soft tissue density nodule in the posterior left lung apex (series 2 image 23) appears new. 5 mm spiculated soft tissue density nodule in the right upper lobe at the site of previous infection is likely postinflammatory (image 38). Similarly, 5 mm irregular soft tissue density nodule in the anterior right upper lobe near the minor fissure (image 56), 3 mm irregular soft tissue density nodule centrally in the right upper lobe (image 33), and 4 mm and 3 mm irregular soft tissue density nodules in the right lower lobe (images 58 and 87) are also likely postinflammatory. Several tiny scattered bilateral nodules are probably related to inflammatory respiratory bronchiolitis in this patient with moderately severe centrilobular and paraseptal emphysema with associated multifocal linear scarring and subpleural fibrosis. Interval resolution of small bilateral pleural effusions. No pneumothorax. Heart is normal in size. Extensive and severe left and right coronary artery calcifications again seen. No pericardial effusion. Aorta is nonaneurysmal and atherosclerotic. Pulmonary artery is normal in diameter. Interval resolution of reactive mediastinal and hilar lymphadenopathy. A residual mildly enlarged lower right paratracheal lymph node measures 1.3 x 1.0 cm. Images of the upper abdomen are unremarkable. Bones are intact. A spinal stimulator is partially imaged. [facility]-[id number] Performing Organization Address City/State/Zipcode Phone Number [facility] [address] [place] [address] XR Chest 2 Vw (01/04/2018 12:09 PM) Narrative Performed At EXAMINATION:XR CHEST 2 VW [facility] CLINICAL HISTORY:J18.9 Pneumoniaunspecified organism, T81.4XXA Infection following a procedureinitial encounter, j18.9 COMPARISON:Chest x-ray 10/05/2017 IMPRESSION: Frontal and lateral views reveal a stable cardiomediastinal silhouette. Thoracic spinal cord simulator remains in place. Improved aeration has occurred throughout the lungs though coarse interstitial markings persist. Pleural margins are sharp. The remainder of the examination is unremarkable. [facility]-[id number] Procedure Note Interface, Radiology Results Incoming - 01/04/2018 12:19 PM HAIR ASSISTANT EXAMINATION: XR CHEST 2 VW CLINICAL HISTORY: J18.9 Pneumonia unspecified organism, T81.4XXA Infection following a procedure initial encounter, j18.9 COMPARISON: Chest x-ray 10/05/2017 IMPRESSION: Frontal and lateral views reveal a stable cardiomediastinal silhouette. Thoracic spinal cord simulator remains in place. Improved aeration has occurred throughout the lungs though coarse interstitial markings persist. Pleural margins are sharp. The remainder of the examination is unremarkable. [facility]-[id number] Performing Organization Address City/State/Zipcode Phone Number [facility] [phone] [place] [address] Estimated GFR (10/06/2017 12:30 PM)Only the most recent of17 resultswithin the time period is included. GFR Non Af Amer 88 mL/min/1.73 m2 [facility] DEPARTMENT OF PATHOLOGY AND GENOMIC MEDICINE GFR Af Amer >90 mL/min/1.73 m2 [facility] DEPARTMENT OF Comment: PATHOLOGY AND GENOMIC Chronic kidney disease: <60 mL/min/1.73m2 MEDICINE Kidney failure: <15 mL/min/1.73m2 The estimated GFR is calculated from the IDMS-traceable Modification of Diet in Renal Disease Equation. The accuracy of the calculation is poor when the creatinine is normal. Calculated values >90 mL/min/1.73m2 are not reported. This equation has not been validated in children (<18 years), women, the elderly (>70 years), or ethnic groups other than Caucasians and Americans. Specimen Plasma specimen Performing Organization Address City/State/Zipcode Phone Number [facility] DEPARTMENT OF PATHOLOGY [address] [place] [address] AND [employer] MEDICINE CBC with platelet and differential (10/06/2017 12:30 PM)Only the most recent of11 resultswithin the time period is included. WBC 16.2 (H) 4.5 - 11.0 k/uL [facility] DEPARTMENT OF PATHOLOGY AND GENOMIC MEDICINE RBC 3.73 (L) 4.20 - 5.50 m/uL [facility] DEPARTMENT OF PATHOLOGY AND GENOMIC MEDICINE HGB 10.4 (L) 12.0 - 16.0 g/dL [facility] DEPARTMENT OF PATHOLOGY AND GENOMIC MEDICINE HCT 31.4 (L) 37.0 - 47.0 % [facility] DEPARTMENT OF PATHOLOGY AND GENOMIC MEDICINE MCV 84.2 82.0 - 100.0 fL [facility] DEPARTMENT OF PATHOLOGY AND GENOMIC MEDICINE MCH 27.9 27.0 - 34.0 pg [facility] DEPARTMENT OF PATHOLOGY AND GENOMIC MEDICINE MCHC 33.1 31.0 - 37.0 g/dL [facility] DEPARTMENT OF PATHOLOGY AND GENOMIC MEDICINE RDW - SD 54.6 37.0 - 55.0 fL [facility] DEPARTMENT OF PATHOLOGY AND GENOMIC MEDICINE MPV 9.3 6.9 - 11.0 fL [facility] DEPARTMENT OF PATHOLOGY AND GENOMIC MEDICINE Platelet count 345 150 - 400 K/uL [facility] DEPARTMENT OF PATHOLOGY AND GENOMIC MEDICINE Nucleated RBC 0.00 /100 WBC [facility] DEPARTMENT OF PATHOLOGY AND GENOMIC MEDICINE Neutrophils 81.2 (H) 39.0 - 69.0 % [facility] DEPARTMENT OF PATHOLOGY AND GENOMIC MEDICINE Lymphocytes 9.5 (L) 25.0 - 45.0 % [facility] DEPARTMENT OF PATHOLOGY AND GENOMIC MEDICINE Monocytes 6.2 0.0 - 10.0 % [facility] DEPARTMENT OF PATHOLOGY AND GENOMIC MEDICINE Eosinophils 1.0 0.0 - 5.0 % [facility] DEPARTMENT OF PATHOLOGY AND GENOMIC MEDICINE Basophils 0.4 0.0 - 1.0 % [facility] DEPARTMENT OF PATHOLOGY AND GENOMIC MEDICINE Immature granulocytes 1.7 (H) 0.0 - 1.0 % [facility] DEPARTMENT OF PATHOLOGY AND GENOMIC MEDICINE Specimen Blood Performing Organization Address City/[facility] Centercode Phone Number [facility] DEPARTMENT OF PATHOLOGY [address] [place] [address] AND [facility] Magnesium level (10/06/2017 12:30 PM)Only the most recent of9 resultswithin the time period is included. Magnesium 1.9 1.6 - 2.6 mg/dL [facility] OF PATHOLOGY [facility] GENOMIC MEDICINE Specimen Plasma specimen Performing Organization Address City/[facility]/Zipcode Phone Number [facility] DEPARTMENT OF PATHOLOGY [address] [place] [address] AND [facility] Comprehensive metabolic panel (10/06/2017 12:30 PM)Only the most recent of6 resultswithin the time period is included. Sodium 130 (L) 135 - 148 mEq/L [facility] DEPARTMENT OF PATHOLOGY AND GENOMIC MEDICINE Potassium 5.1 (H)Comment: Specimen 3.5 - 5.0 mEq/L [facility] DEPARTMENT is not hemolyzed. PATHOLOGY AND GENOMIC MEDICINE Chloride 98 98 - 112 mEq/L [facility] DEPARTMENT OF PATHOLOGY AND GENOMIC MEDICINE CO2 20 (L) 24 - 31 mEq/L [facility] DEPARTMENT OF PATHOLOGY AND GENOMIC MEDICINE Anion gap 12 7 - 15 mEq/L [facility] DEPARTMENT OF Comment: PATHOLOGY AND GENOMIC Starting from February , anion gap calculation MEDICINE no longer incorporates potassium. Please note the change. BUN 9 6 - 20 mg/dL [facility] DEPARTMENT OF PATHOLOGY AND GENOMIC MEDICINE Creatinine 0.7 0.5 - 0.9 mg/dL [facility] DEPARTMENT OF PATHOLOGY AND GENOMIC MEDICINE Glucose 142 (H) 65 - 99 mg/dL [facility] DEPARTMENT OF PATHOLOGY AND GENOMIC MEDICINE Calcium 8.8 8.3 - 10.2 mg/dL [facility] DEPARTMENT OF PATHOLOGY AND GENOMIC MEDICINE Protein 6.0 (L) 6.3 - 8.3 g/dL [facility] DEPARTMENT OF PATHOLOGY AND GENOMIC MEDICINE Albumin 3.0 (L) 3.5 - 5.0 g/dL [facility] DEPARTMENT OF PATHOLOGY AND GENOMIC MEDICINE A/G ratio 1.0 0.7 - 3.8 [facility] DEPARTMENT OF PATHOLOGY AND GENOMIC MEDICINE Alkaline phosphatase 81 35 - 104 U/L [facility] DEPARTMENT OF PATHOLOGY AND GENOMIC MEDICINE AST 20 10 - 35 U/L [facility] DEPARTMENT OF PATHOLOGY AND GENOMIC MEDICINE ALT 12 5 - 50 U/L [facility] DEPARTMENT OF PATHOLOGY AND GENOMIC MEDICINE Total bilirubin 0.4 0.2 - 1.2 mg/dL [facility] DEPARTMENT OF PATHOLOGY AND GENOMIC MEDICINE Specimen Plasma specimen Performing Organization Address City/[facility] Centercode Phone Number [facility] [place] [address] AND [employer] [facility] Transfuse RBC (10/06/2017 7:41 AM)Only the most recent of4 resultswithin the time period is included.Occult blood, stool (10/06/2017 7:30 AM)Only the most recent of2 resultswithin the time period is included. Occult blood, stool Negative for occult blood. [facility] DEPARTMENT OF Comment: PATHOLOGY AND GENOMIC Specimen Information MEDICINE Specimen Source: Stool Specimen Site: Nonpreserved Specimen Stool - Nonpreserved Performing Organization Address City/[facility] Centercode Phone Number [facility] [place] [address] AND [employer] [facility] Prepare RBC, 2 Units (10/05/2017 6:35 PM)Only the most recent of2 resultswithin the time period is included. Product name Red Blood Cells -1, [facility] DEPARTMENT OF Leuk[facility] PATHOLOGY AND GENOMIC MEDICINE Unit number [id number] [facility] DEPARTMENT OF PATHOLOGY AND GENOMIC MEDICINE Product code [id number] [facility] DEPARTMENT OF PATHOLOGY AND GENOMIC MEDICINE Dispense status Transfused [facility] DEPARTMENT OF PATHOLOGY AND GENOMIC MEDICINE Blood expiration date 20171029 [facility] DEPARTMENT OF PATHOLOGY AND GENOMIC MEDICINE Blood type code 5100 [facility] DEPARTMENT OF PATHOLOGY AND GENOMIC MEDICINE Blood type O POSITIVE [facility] DEPARTMENT OF PATHOLOGY AND GENOMIC MEDICINE Product name Red Blood Cells -1, [facility] DEPARTMENT OF Leukored PATHOLOGY AND GENOMIC MEDICINE Unit number [id number] [facility] DEPARTMENT OF PATHOLOGY AND GENOMIC MEDICINE Product code [id number] [facility] DEPARTMENT OF PATHOLOGY AND GENOMIC MEDICINE Dispense status Transfused [facility] DEPARTMENT OF PATHOLOGY AND GENOMIC MEDICINE Blood expiration date 20171029 [facility] DEPARTMENT OF PATHOLOGY AND GENOMIC MEDICINE Blood type code 5100 [facility] DEPARTMENT OF PATHOLOGY AND GENOMIC MEDICINE Blood type O POSITIVE [facility] DEPARTMENT OF PATHOLOGY AND GENOMIC MEDICINE Performing Organization Address City/[facility]/Zipcode Phone Number [facility] DEPARTMENT OF PATHOLOGY [id number] [place] [address]. [place] [address] AND GENOMIC MEDICINE Type and screen (10/05/2017 6:35 PM)Only the most recent of2 resultswithin the time period is included. ABO grouping OComment: 10/05/17 [facility] DEPARTMENT OF PATHOLOGY Blood is available. AND [employer] MEDICINE Called paz @ 20:02. Nicci Ng Rh type POS [facility] DEPARTMENT OF PATHOLOGY AND GENOMIC MEDICINE Antibody screen (gel) NEG [facility] DEPARTMENT OF PATHOLOGY AND GENOMIC MEDICINE Specimen Blood Performing Organization Address [facility] Centercook Phone Number [facility] DEPARTMENT OF PATHOLOGY [address] [place] [address]. [place] [address] AND GENOMIC MEDICINE XR Chest 1 Vw Portable (10/05/2017 6:48 AM)Only the most recent of8 resultswithin the time period is included. Narrative Performed At EXAMINATION:XR CHEST 1 VW PORTABLE [facility] CLINICAL HISTORY:Pneumonia COMPARISON:Most recent. IMPRESSION: Interstitial and scattered patchy alveolar opacities, right greater than left, demonstrate marginal improvement. No pleural effusion is seen. The heart is borderline enlarged. [facility]-[id number] Procedure Note Interface, Radiology Results Incoming - 10/05/2017 7:18 AM HAIR ASSISTANT EXAMINATION: XR CHEST 1 VW PORTABLE CLINICAL HISTORY: Pneumonia COMPARISON: Most recent. IMPRESSION: Interstitial and scattered patchy alveolar opacities, right greater than left, demonstrate marginal improvement. No pleural effusion is seen. The heart is borderline enlarged. [facility]-[id number] Performing Organization Address City/[facility]/Zipcode Phone Number [employer] [address] [place] [address] Basic metabolic panel (10/04/2017 8:40 PM)Only the most recent of10 resultswithin the time period is included. Sodium 122 (L) 135 - 148 mEq/L [facility] DEPARTMENT OF PATHOLOGY AND GENOMIC MEDICINE Potassium 3.2 (L) 3.5 - 5.0 mEq/L [facility] DEPARTMENT OF PATHOLOGY AND GENOMIC MEDICINE Chloride 84 (L) 98 - 112 mEq/L [facility] DEPARTMENT OF PATHOLOGY AND GENOMIC MEDICINE CO2 26 24 - 31 mEq/L [facility] DEPARTMENT OF PATHOLOGY AND GENOMIC MEDICINE Anion gap 12 7 - 15 mEq/L [facility] DEPARTMENT OF Comment: PATHOLOGY AND GENOMIC Starting from February , anion gap calculation MEDICINE no longer incorporates potassium. Please note the change. BUN 10 6 - 20 mg/dL [facility] DEPARTMENT OF PATHOLOGY AND GENOMIC MEDICINE Creatinine 0.8 0.5 - 0.9 mg/dL [facility] DEPARTMENT OF PATHOLOGY AND GENOMIC MEDICINE Glucose 210 (H) 65 - 99 mg/dL [facility] DEPARTMENT OF PATHOLOGY AND GENOMIC MEDICINE Calcium 8.1 (L) 8.3 - 10.2 mg/dL [facility] DEPARTMENT OF PATHOLOGY AND GENOMIC MEDICINE Specimen Plasma specimen Performing Organization Address City/State/Zipcode Phone Number [facility] DEPARTMENT OF PATHOLOGY [address] [place] [address] AND [facility] PICC Line Insertion Fluoroscopy (10/04/2017 5:45 PM) Narrative Performed At [facility] Procedure: Left PICC line placement Performing Radiologist: Brannon Chatterjee MD Assistants: None Anesthesia Type: Lidocaine 1% was used for local anesthesia. Preprocedure Diagnosis: PICC Line Insertion Post Procedure Diagnosis: Same Technique: Written informed consent was obtained prior to the procedure. The patient was brought to the fluoroscopy suite and placed supine on the table. The left upper arm was prepped and draped in usual sterile fashion. All elements of maximal sterile barrier technique were utilized. 1% lidocaine was used for local anesthesia. Under real-time ultrasound guidance, a 21-gauge micropuncture needle was advanced into the left basilic vein.A 0.018 inch wire was advanced centrally through the needle. The needle was exchanged for a 5 Russian peel-away sheath over the wire. A 5 Russian double lumen PICC line was trimmed to 40cm and placed through the peel-away sheath. The tip was placed at the cavoatrial junction under real-time fluoroscopic visualization. The PICC line was secured to the skin using suture. A sterile occlusive dressing was applied. Radiation Dose: Ka,r=1 mGy Complications: None Specimens Removed: None Estimated Blood Loss: Less than 1 mL Blood/Blood Products Administered: None Grafts/Implants: As described in the above report. Impression: 1. Ultrasound shows an anechoic and compressible left basilic vein. 2. Uncomplicated left PICC line placement.The PICC line is ready for use. [facility]-[id number] Procedure Note Interface, Radiology Results Incoming - 10/04/2017 6:11 PM HAIR ASSISTANT Procedure: Left PICC line placement Performing Radiologist: Brannon Chatterjee MD Assistants: None Anesthesia Type: Lidocaine 1% was used for local anesthesia. Preprocedure Diagnosis: PICC Line Insertion Post Procedure Diagnosis: Same Technique: Written informed consent was obtained prior to the procedure. The patient was brought to the fluoroscopy suite and placed supine on the table. The left upper arm was prepped and draped in usual sterile fashion. All elements of maximal sterile barrier technique were utilized. 1% lidocaine was used for local anesthesia. Under real -time ultrasound guidance, a 21-gauge micropuncture needle was advanced into the left basilic vein. A 0.018 inch wire was advanced centrally through the needle. The needle was exchanged for a 5 Russian peel-away sheath over the wire. A 5 Russian double lumen PICC line was trimmed to 40cm and placed through the peel-away sheath. The tip was placed at the cavoatrial junction under real-time fluoroscopic visualization. The PICC line was secured to the skin using suture. A sterile occlusive dressing was applied. Radiation Dose: Ka,r=1 mGy Complications: None Specimens Removed: None Estimated Blood Loss: Less than 1 mL Blood/Blood Products Administered: None Grafts/Implants: As described in the above report. Impression: 1. Ultrasound shows an anechoic and compressible left basilic vein. 2. Uncomplicated left PICC line placement. The PICC line is ready for use. [facility]-[id number] Performing Organization Address City/State/Zipcode Phone Number [facility] [address] [place] [address] PICC Line Vascular Insertion (10/04/2017 5:45 PM) Narrative Performed At [facility] Procedure: Left PICC line placement Performing Radiologist: Brannon Chatterjee MD Assistants: None Anesthesia Type: Lidocaine 1% was used for local anesthesia. Preprocedure Diagnosis: PICC Line Insertion Post Procedure Diagnosis: Same Technique: Written informed consent was obtained prior to the procedure. The patient was brought to the fluoroscopy suite and placed supine on the table. The left upper arm was prepped and draped in usual sterile fashion. All elements of maximal sterile barrier technique were utilized. 1% lidocaine was used for local anesthesia. Under real-time ultrasound guidance, a 21-gauge micropuncture needle was advanced into the left basilic vein.A 0.018 inch wire was advanced centrally through the needle. The needle was exchanged for a 5 Russian peel-away sheath over the wire. A 5 Russian double lumen PICC line was trimmed to 40cm and placed through the peel-away sheath. The tip was placed at the cavoatrial junction under real-time fluoroscopic visualization. The PICC line was secured to the skin using suture. A sterile occlusive dressing was applied. Radiation Dose: Ka,r=1 mGy Complications: None Specimens Removed: None Estimated Blood Loss: Less than 1 mL Blood/Blood Products Administered: None Grafts/Implants: As described in the above report. Impression: 1. Ultrasound shows an anechoic and compressible left basilic vein. 2. Uncomplicated left PICC line placement.The PICC line is ready for use. 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 Preprocedure Diagnosis: PICC Line Insertion Post Procedure Diagnosis: Same Technique: Written informed consent was obtained prior to the procedure. The patient was brought to the fluoroscopy suite and placed supine on the table. The left upper arm was prepped and draped in usual sterile fashion. All elements of maximal sterile barrier technique were utilized. 1% lidocaine was used for local anesthesia. Under real -time ultrasound guidance, a 21-gauge micropuncture needle was advanced into the left basilic vein. A 0.018 inch wire was advanced centrally through the needle. The needle was exchanged for a 5 Russian peel-away sheath over the wire. A 5 Russian double lumen PICC line was trimmed to 40cm and placed through the peel-away sheath. The tip was placed at the cavoatrial junction under real-time fluoroscopic visualization. The PICC line was secured to the skin using suture. A sterile occlusive dressing was applied. Radiation Dose: Ka,r=1 mGy Complications: None Specimens Removed: None Estimated Blood Loss: Less than 1 mL Blood/Blood Products Administered: None Grafts/Implants: As described in the above report. Impression: 1. Ultrasound shows an anechoic and compressible left basilic vein. 2. Uncomplicated left PICC line placement. The PICC line is ready for use. [facility]-[id number] Performing Organization Address City/[facility]/Zipcode Phone Number [facility] [address] [place] [address] POC glucose (10/04/2017 7:26 AM)Only the most recent of44 resultswithin the time period is included. POC glucose 155 (H) 65 - 99 mg/dL [facility] DEPARTMENT OF PATHOLOGY Comment: AND GENOMIC MEDICINE RN Notified Meter ID: [id number] Animal Sticker: Regalado Performing Organization Address [facility] Phone Number [facility] DEPARTMENT OF PATHOLOGY [address] [place] [address] AND [facility] Creatinine level (10/03/2017 6:30 AM) Creatinine 1.0 (H) 0.5 - 0.9 mg/dL [facility] DEPARTMENT OF PATHOLOGY AND GENOMIC MEDICINE Specimen Plasma specimen Performing Organization Address [facility] Phone Number [facility] DEPARTMENT OF PATHOLOGY [address] [place] [address]. [place] [address] AND [facility] Ionized calcium (10/02/2017 1:35 PM)Only the most recent of5 resultswithin the time period is included. pH 7.48 [facility] DEPARTMENT OF PATHOLOGY AND GENOMIC MEDICINE Ionized calcium 1.01 (L) 1.11 - 1.32 mmol/L [facility] DEPARTMENT OF PATHOLOGY AND GENOMIC MEDICINE Specimen Plasma specimen Performing Organization Address [facility]ook Phone Number [facility] DEPARTMENT OF PATHOLOGY [address] [place] [address]. [place] [address] AND [facility] Arterial blood gas (10/02/2017 10:50 AM)Only the most recent of9 resultswithin the time period is included. pH, arterial 7.47 (H) 7.35 - 7.45 [facility] DEPARTMENT OF PATHOLOGY AND GENOMIC MEDICINE pCO2, arterial 46 (H) 35 - 45 mmHg [facility] DEPARTMENT OF PATHOLOGY AND GENOMIC MEDICINE pO2, arterial 83 80 - 90 mmHg [facility] DEPARTMENT OF PATHOLOGY AND GENOMIC MEDICINE Bicarbonate, arterial 33.0 (H) 21.0 - 28.0 mmol/L [facility] DEPARTMENT OF PATHOLOGY AND GENOMIC MEDICINE Base excess, arterial 9 (H) -2 - 2 mEq/L [facility] DEPARTMENT OF PATHOLOGY AND GENOMIC MEDICINE O2 saturation, arterial 98 95 - 100 % [facility] DEPARTMENT OF PATHOLOGY AND GENOMIC MEDICINE Specimen Blood Performing Organization Address [facility] Phone Number [facility] DEPARTMENT OF PATHOLOGY [address] [place] [address]. [place] [address] AND [employer] [facility] Ionized calcium, arterial (10/02/2017 4:08 AM)Only the most recent of3 resultswithin the time period is included. Ionized calcium, arterial 0.90 (L) 1.11 - 1.32 mmol/L [facility] DEPARTMENT OF PATHOLOGY AND GENOMIC MEDICINE Specimen Blood Performing Organization Address [facility] Phone Number [facility] DEPARTMENT OF PATHOLOGY [address] [place] [address]. [place] [address] AND [employer] [facility] Smear review (10/02/2017 4:00 AM) Platelet slide review Bhavya adequateComment: [facility] DEPARTMENT OF Occasional platelet clumps PATHOLOGY AND GENOMIC seen on smear. Interpret MEDICINE result accordingly. Anisocytosis Moderate [facility] DEPARTMENT OF PATHOLOGY AND GENOMIC MEDICINE Ovalocytes Moderate [facility] DEPARTMENT OF PATHOLOGY AND GENOMIC MEDICINE Enlarged platelets Moderate (A) [facility] DEPARTMENT OF PATHOLOGY AND GENOMIC MEDICINE Smudge cells Few [facility] DEPARTMENT OF PATHOLOGY AND GENOMIC MEDICINE Giant platelets Occasional [facility] DEPARTMENT OF PATHOLOGY AND GENOMIC MEDICINE Toxic granulation Slight [facility] DEPARTMENT OF PATHOLOGY AND GENOMIC MEDICINE Neutrophils, vacuolated Slight [facility] DEPARTMENT OF PATHOLOGY AND GENOMIC MEDICINE Performing Organization Address [facility] Phone Number [facility] DEPARTMENT OF PATHOLOGY [address] [place] [address] AND [employer] [facility] Phosphorus level (10/02/2017 4:00 AM)Only the most recent of4 resultswithin the time period is included. Phosphorus 3.6 2.4 - 4.5 mg/dL [facility] DEPARTMENT OF PATHOLOGY AND GENOMIC MEDICINE Specimen Plasma specimen Performing Organization Address [facility] Phone Number [facility] DEPARTMENT OF PATHOLOGY [address] [place] [address] AND [employer] [facility] Sputum culture (09/30/2017 4:58 PM)Only the most recent of2 resultswithin the time period is included. Sputum culture isolate No normal oral candy isolated. (A) [facility] DEPARTMENT OF Comment: PATHOLOGY AND GENOMIC Specimen Information MEDICINE Specimen Source: Sputum Specimen Site: Not specified Sputum culture isolate Jo-Ann albicans [facility] DEPARTMENT OF Many PATHOLOGY AND GENOMIC The performance characteristics of this assay on this isolate MEDICINE were validated by the Microbiology Laboratory at [facility].This source has not been approved by the U.S. Food and Drug Administration.The results are not intended to be used as the sole means for clinical diagnosis or patient management.The Microbiology Laboratory is authorized under the clinical Laboratory Improvement Amendments of 1988 (CLIA-88) to perform high complexity testing. (A) Specimen Sputum - Not specified Performing Organization Address City/State/Zipcode Phone Number [facility] DEPARTMENT OF PATHOLOGY AND [address] [place] [address] GENOMIC MEDICINE Manual differential (09/30/2017 3:29 PM)Only the most recent of6 resultswithin the time period is included. Manual differential PERFORMED [facility] DEPARTMENT OF PATHOLOGY AND GENOMIC MEDICINE Neutrophils 80.0 (H)Comment: 39.0 - 69.0 % [facility] DEPARTMENT OF Corrected result; PATHOLOGY AND GENOMIC previously reported as MEDICINE 0.0 on 09/30/2017 at 16:13 by [facility] Lymphocytes 11.0 (L)Comment: 25.0 - 45.0 % [facility] DEPARTMENT OF Corrected result; PATHOLOGY AND GENOMIC previously reported as MEDICINE 0.0 on 09/30/2017 at 16:13 by [facility] Monocytes 8.0Comment: Corrected 0.0 - 10.0 % [facility] DEPARTMENT OF result; previously PATHOLOGY AND GENOMIC reported as 0.0 on MEDICINE 09/30/2017 at 16:13 by [facility] Eosinophils 0.0 0.0 - 5.0 % [facility] DEPARTMENT OF PATHOLOGY AND GENOMIC MEDICINE Basophils 0.0 0.0 - 1.0 % [facility] DEPARTMENT OF PATHOLOGY AND GENOMIC MEDICINE Metamyelocytes 1 % [facility] DEPARTMENT OF PATHOLOGY AND GENOMIC MEDICINE Myelocytes 1 % [facility] DEPARTMENT OF PATHOLOGY AND GENOMIC MEDICINE Platelet slide review Bhavya adequate [facility] DEPARTMENT OF PATHOLOGY AND GENOMIC MEDICINE Toxic granulation Slight [facility] DEPARTMENT OF PATHOLOGY AND GENOMIC MEDICINE Neutrophils, vacuolated Slight [facility] DEPARTMENT OF PATHOLOGY AND GENOMIC MEDICINE Anisocytosis Moderate [facility] DEPARTMENT OF PATHOLOGY AND GENOMIC MEDICINE Polychromasia Moderate [facility] DEPARTMENT OF PATHOLOGY AND GENOMIC MEDICINE Schistocytes Occasional [facility] DEPARTMENT OF PATHOLOGY AND GENOMIC MEDICINE Performing Organization Address City/[facility]ode Phone Number [facility] DEPARTMENT OF PATHOLOGY [id number] [place] [address]. [place] [address] AND [employer] [facility] Urinalysis screen and microscopy, with reflex to culture (09/29/2017 12:37 PM) Only the most recent of2 resultswithin the time period is included. Specimen site Catheterized [facility] DEPARTMENT OF PATHOLOGY AND GENOMIC MEDICINE Color, UA Yellow [facility] DEPARTMENT OF PATHOLOGY AND GENOMIC MEDICINE Appearance, UA Sl Cloudy [facility] DEPARTMENT OF PATHOLOGY AND GENOMIC MEDICINE Specific gravity, UA 1.021 1.001 - 1.030 [facility] DEPARTMENT OF PATHOLOGY AND GENOMIC MEDICINE pH, UA 5.0 5.0 - 9.0 [facility] DEPARTMENT OF PATHOLOGY AND GENOMIC MEDICINE Protein, UA Negative Negative [facility] DEPARTMENT OF PATHOLOGY AND GENOMIC MEDICINE Glucose, UA Negative Negative [facility] DEPARTMENT OF PATHOLOGY AND GENOMIC MEDICINE Ketones, UA Negative Negative [facility] DEPARTMENT OF PATHOLOGY AND GENOMIC MEDICINE Bilirubin, UA Negative Negative [facility] DEPARTMENT OF PATHOLOGY AND GENOMIC MEDICINE Blood, UA Small (A) Negative [facility] DEPARTMENT OF PATHOLOGY AND GENOMIC MEDICINE Nitrite, UA Negative Negative [facility] DEPARTMENT OF PATHOLOGY AND GENOMIC MEDICINE Urobilinogen, UA <2.0 <2.0 E.U./dL [facility] DEPARTMENT OF PATHOLOGY AND GENOMIC MEDICINE Leukocyte esterase, UA Moderate (A) Negative [facility] DEPARTMENT OF PATHOLOGY AND GENOMIC MEDICINE Epithelial cells, UA >20 /HPF [facility] DEPARTMENT OF PATHOLOGY AND GENOMIC MEDICINE WBC, UA 20 (H) 0 - 4 /HPF [facility] DEPARTMENT OF PATHOLOGY AND GENOMIC MEDICINE RBC, UA 2 0 - 2 /HPF [facility] DEPARTMENT OF PATHOLOGY AND GENOMIC MEDICINE Bacteria, UA Few None seen [facility] DEPARTMENT OF PATHOLOGY AND GENOMIC MEDICINE Yeast, UA None seen [facility] DEPARTMENT OF PATHOLOGY AND GENOMIC MEDICINE Yeast with pseudohyphae, UA None seen [facility] DEPARTMENT OF PATHOLOGY AND GENOMIC MEDICINE Specimen Urine Performing Organization Address City/[facility]/Zipcode Phone Number [facility] DEPARTMENT OF PATHOLOGY [id number] [place] [address]. [place] [address] AND [employer] MEDICINE Gram stain (09/29/2017 12:37 PM)Only the most recent of2 resultswithin the time period is included. Gram stain result No WBC's or organisms seen. [facility] DEPARTMENT OF PATHOLOGY Comment: AND GENOMIC MEDICINE Specimen Information Specimen Source: Urine Specimen Site: See UA Specimen Urine Performing Organization Address City/[facility]/Zipcode Phone Number [facility] DEPARTMENT OF PATHOLOGY AND [address] [place] [address] [facility] Urine culture (09/29/2017 12:37 PM)Only the most recent of2 resultswithin the time period is included. Urine culture isolate No growth after 2 days. [facility] DEPARTMENT OF PATHOLOGY Comment: AND GENOMIC MEDICINE Specimen Information Specimen Source: Urine Specimen Site: See UA Specimen Urine Performing Organization Address [facility] Phone Number [facility] DEPARTMENT OF PATHOLOGY AND [address] [place] [address] [facility] Partial thromboplastin time, activated (09/29/2017 4:30 AM)Only the most recent of3 resultswithin the time period is included. PTT 37.1 (H) 23.0 - 36.0 sec [facility] DEPARTMENT OF Comment: PATHOLOGY AND GENOMIC PTT therapeutic range for unfractionated heparin is MEDICINE 61.0-112.0 seconds which corresponds to Anti-Xa 0.3-0.7 U/ml. Specimen Blood Performing Organization Address [facility] Phone Number [facility] DEPARTMENT OF PATHOLOGY [id number] [place] [address] AND [employer] [facility] Prothrombin time with INR (09/29/2017 4:30 AM)Only the most recent of3 resultswithin the time period is included. Prothrombin time 16.8 (H) 12.0 - 15.0 sec [facility] DEPARTMENT OF PATHOLOGY AND GENOMIC MEDICINE INR 1.3 [facility] DEPARTMENT OF Comment: PATHOLOGY AND GENOMIC The International Normalized Ratio (INR) is a therapeutic MEDICINE monitoring tool for patients who are stable on oral anticoagulant therapy. An INR of 2.0-3.0 is suggested for deep vein thrombosis/pulmonary embolism. Specimen Blood Performing Organization Address [facility]ode Phone Number [facility] DEPARTMENT OF PATHOLOGY [address] [place] [address] AND [employer] MEDICINE Consult to Sepsis Response Team (09/28/2017 7:41 PM) Narrative Performed At [facility] 09/28/20177:41 PM Multifocal PNA with sepsis, sputum with MSSA, continue supportive care Sepsis Clinical Assessment Performed by: NICOLÁS GRUBBS Authorized by: NICOLÁS GRUBBS Sepsis Clinical Assessment General Assessment Information Current sepsis score:4 If score does not worsen, snooze alerts until:09/29/2017 05:00 CDT SIRS Criteria SIRS criteria met: Heart rate > 90 bpm, Respirations > 20/min and WBC > 12 K/mcL Sepsis Related Vitals Heart rate: 93 Temperature: 97.6 F Respiratory rate: 28 Blood pressure: 131/63 Altered mental status: Poor safety awareness, Poor attention/concentration WBC (k/uL) Date Value 09/28/2017 29.8 (H)09/27/2017 22.2 (H) Weight-Based Fluid Bolus Calculation The recommended weight-based bolus volume: 1,809 mL (dosing weight) Please refer to the MAR for actual med/fluid administrations. Vancomycin level, trough (09/27/2017 12:40 PM)Only the most recent of2 resultswithin the time period is included. Vancomycin, trough 9.9 (L) 10.0 - 20.0 ug/mL [facility] DEPARTMENT OF Comment: PATHOLOGY AND GENOMIC Therapeutic Ranges: MEDICINE Peak30.0 - 40.0 ug/mL Dstgam98.0 - 20.0 ug/mL Specimen Blood Performing Organization Address [facility] Phone Number [facility] DEPARTMENT OF PATHOLOGY [address] [place] [address]. [place] [address] AND [employer] Hemoglobin & hematocrit (09/26/2017 7:45 PM)Only the most recent of2 resultswithin the time period is included. HGB 7.9 (L) 12.0 - 16.0 g/dL [facility] DEPARTMENT OF PATHOLOGY AND GENOMIC MEDICINE HCT 23.3 (L) 37.0 - 47.0 % [facility] DEPARTMENT OF PATHOLOGY AND GENOMIC MEDICINE Specimen Blood Performing Organization Address [facility] Phone Number [facility] DEPARTMENT OF PATHOLOGY [address] [place] [address]. [place] [address] AND [employer] [facility] Echocardiogram complete w contrast and 3D if needed (09/26/2017 4:29 PM) AoV Area, Vmax 2.40 cm2 [facility] AoV Area, VTI 2.27 cm2 [facility] AoV Mean PG 5.88 mmHg [facility] AoV Peak PG 9.89 mmHg [facility] AoV Vmax 1.57 m/s [facility] AoV VTI 0.34 m [facility] IVS,d 0.87 0.6 - 1.2 cm [facility] IVS/LVPW,2D 0.96 [facility] LA Area d A4C 21.45 cm2 [facility] LV,d 4.25 cm [facility] LV EF,2D 63.92 % [facility] LV,s 3.02 cm [facility] LVOT area 2.83 cm2 [facility] LVOT Diam,S 1.90 cm [facility] LVOT Vmax 1.33 m/s [facility] LVOT VTI 0.27 m [facility] LVPWD,d 0.91 cm [facility] PV Pk Grad 4.76 mmHg [facility] PV VMAX 1.09 m/s [facility] RVSP (TR) 81.87 mmHg [facility] TR Vpeak 4.09 mm/s [facility] MV E A ratio 1.30 mmHg [facility] TR pk grad 66.87 mmHg [facility] E wave decelartion time 149.10 msec [facility] IVRT 62.28 msec [facility] MV Peak A Satish 0.77 m/s [facility] MV valve area p 1/2 method 4.05 cm2 [facility] MV Peak E Satish 1.00 m/s [facility] MV stenosis pressure 1/2 time 54.37 ms [facility] AV LVOT peak gradient 7.04 mmHg [facility] RVSP 81.87 mmHg [facility] LV SYS VOL 35.70 ml [facility] LV LARSON VOL 80.74 ml [facility] LV SV Teich 2D 45.03 ml [facility] LV Vol s Teich PSAX 35.70 ml [facility] AoV Vmn 1.16 [facility] LV FS Teich 2D 28.81 [facility] MV AE ratio 0.77 [facility] LA Ao Ratio Mmode 1.18 [facility] LV FS Cube 2D 28.81 [facility] LVOT Vmn 0.94 [facility] Ao root annulus 2.64 cm [facility] Aov area Vmn 2.30 cm2 [facility] LA Vol d MOD A4C 65.12 ml [facility] LVOT mean grad 3.93 mmHg [facility] MAX Pred HR 167.00 [facility] 85 of MPHR 141.95 [facility] Calc MPHR 167.00 bpm [facility] LV SV Cube 2D 49.01 ml [facility] LV vol d cube 2D 76.68 ml [facility] LV vol s cube 2D 27.67 ml [facility] MV Decel slope 6.72 m/s2 [facility] Pred Exer Dur R1 8.66 [facility] Pred METS R1 7.81 [facility] Velocity Ratio (V1/V2) 0.85 m/s [facility] EF 55.78 % [facility] E/A ratio 1.30 [facility] Narrative Performed At The left ventricular chamber size is normal. Left Ventricular ejection [facility] fraction is 60 - 65%. Left ventricular systolic function is normal.Normal left ventricular wall thickness and regional wall motion. Normal right ventricular size, wall thickness and global function. LA size is upper limits of normal. The left atrium size by volume is mildly dilated. Moderate tricuspid valve regurgitation Severely elevated pulmonary artery systolic pressure.RA pressure is elevated. Severe pulmonary hypertension present. RVSP is 76 mmHg. Spectral Doppler shows pseudonormal pattern of LV diastolic filling. Elevated LV filling pressure, mean PCWP is 20-25mmHg Performing Organization Address [facility] Phone Number [facility] [address] [place] [address] Total iron binding capacity (09/26/2017 9:15 AM) Iron level 9 (L) 37 - 145 ug/dL [facility] DEPARTMENT OF PATHOLOGY AND GENOMIC MEDICINE Iron binding capacity 234 (L) 260 - 460 ug/dL [facility] DEPARTMENT OF PATHOLOGY AND GENOMIC MEDICINE % Saturation 3.8 (L) 15.0 - 38.0 % [facility] DEPARTMENT OF PATHOLOGY AND GENOMIC MEDICINE Specimen Plasma specimen Performing Organization Address [facility] Phone Number [facility] DEPARTMENT OF PATHOLOGY [address] [place] [address] AND [facility] Reticulocyte count (09/26/2017 9:15 AM) Retic %, auto 1.8 0.5 - 2.1 % [facility] DEPARTMENT OF PATHOLOGY AND GENOMIC MEDICINE Retic absolute, auto 0.0477 0.0210 - 0.1155 m/uL [facility] DEPARTMENT OF PATHOLOGY AND GENOMIC MEDICINE Specimen Blood Performing Organization Address [facility] Phone Number [facility] DEPARTMENT OF PATHOLOGY [phone] [place] [address] AND [facility] Thyroid stimulating hormone (09/26/2017 9:15 AM) TSH 0.42 0.27 - 4.20 uIU/mL [facility] [facility] DEPART[facility] OF [facility]OLOGY AND GENOMIC MEDICINE Specimen Plasma specimen Performing Organization Address City/[facility] Centercode Phone Number [facility] DEPARTMENT OF PATHOLOGY [id number] [place] [address] AND [facility] Folate level (09/26/2017 9:15 AM) Folate 7.3 4.8 - 24.2 ng/mL [facility] DEPARTMENT OF PATHOLOGY AND GENOMIC MEDICINE Specimen Serum Performing Organization Address City/[facility] Centercode Phone Number [facility] DEPARTMENT OF PATHOLOGY AND [address] [place] [address] Ferritin level (09/26/2017 9:15 AM) Ferritin level 211 (H) 13 - 150 ng/mL [facility] DEPARTMENT OF PATHOLOGY AND GENOMIC MEDICINE Specimen Plasma specimen Performing Organization Address [facility] Centercode Phone Number [facility] DEPARTMENT OF PATHOLOGY AND [address] [place] [address] Vitamin B12 level (09/26/2017 9:15 AM) Vitamin B12 745 211 - 946 pg/mL [facility] DEPARTMENT OF PATHOLOGY Comment: AND [employer] MEDICINE Significant overlap exists between normal and deficiency states. However, most patients with deficiencies will have Serum B12 <200 pg/mL. Specimen Serum Performing Organization Address [facility] Centercode Phone Number [facility] DEPARTMENT OF PATHOLOGY AND [address] [place] [address] CK-MB (09/26/2017 8:00 AM)Only the most recent of3 resultswithin the time period is included. CK-MB 20.8 (H) 1.0 - 5.3 ng/mL [facility] DEPARTMENT OF PATHOLOGY AND GENOMIC MEDICINE Specimen Plasma specimen Performing Organization Address City/[facility]ercode Phone Number [facility] DEPARTMENT OF PATHOLOGY [phone] [place] [address] AND [facility] Troponin (09/26/2017 8:00 AM)Only the most recent of3 resultswithin the time period is included. Troponin 0.93 (H) 0.00 - 0.30 ng/mL [facility] DEPARTMENT OF PATHOLOGY Comment: AND GENOMIC MEDICINE 0.11 - 1.49 ng/mlMay indicate increased risk of acute coronary syndrome. >=1.5 ng/mlConsistent with acute myocardial infarction. The diagnostic value of a single normal or non-diagnostic result is questionable.Serial samples at 2-6 hour intervals are required to rule out acute myocardial injury. Specimen Plasma specimen Performing Organization Address City/[facility]/Zipcode Phone Number [facility] DEPARTMENT OF PATHOLOGY [address] [facility] [place] [place] [address] AND [employer] Creatine kinase, total (CPK) (09/26/2017 8:00 AM)Only the most recent of2 resultswithin the time period is included. Creatine kinase 1,047 (H) 26 - 192 U/L [facility] DEPARTMENT OF PATHOLOGY AND [employer] [facility] Specimen Plasma specimen Performing Organization Address [facility] Centercode Phone Number [facility] DEPARTMENT OF PATHOLOGY [address] [facility] [place] [place] [address] AND [employer] Insert arterial line (09/26/2017 2:57 AM) Narrative Performed At [facility] [place] 09/26/20172:57 AM Arterial Line Insertion Date/Time: 09/25/2017 11:00 PM Performed by: MEERA JERRY Authorized by: MEERA JERRY Consent: Consent obtained:Verbal and written Consent given by:Patient Risks discussed:Bleeding, ischemia, repeat procedure, infection and pain Indications: Indications: hemodynamic monitoring Pre-procedure details: Skin preparation:2% Chlorhexidine Preparation: Patient was prepped and draped in sterile fashion Anesthesia (see MAR for exact dosages): Anesthesia method:Local infiltration Local anesthetic:Lidocaine 1% w/o epi Procedure details: Location:L radial Azam's test performed: yes Azam's test abnormal: no Needle gauge:20 G Placement technique:Ultrasound guided Number of attempts:1 Transducer: waveform confirmed Post-procedure details: Post-procedure:Sutured CMS:Normal Patient tolerance of procedure:Tolerated well, no immediate complications Mycoplasma pneumoniae Ab, IgM (09/26/2017 2:10 AM) Mycoplasma pneumo IgM 0.00 <=0.76 U/L [facility] Comment: INTERPRETIVE INFORMATION:Mycoplasma pneumoniae Ab, IgM 0.76 U/L or less .......... Negative: No clinically significant amount of M. pneumoniae IgM antibody detected. 0.77 - 0.95 U/L ........... Low Positive: M. pneumoniae- specific IgM presumptively detected. Collection of a follow-up sample in 1-2 weeks is recommended to assure reactivity. 0.96 U/L or greater ....... Positive: Highly significant amount of M. pneumoniae- specific IgM antibody detected. However , low levels of IgM antibodies may occasionally persist for more than 12 months post-infection. Performed by [employer], [address] [place] [address] [email or web address], Eliseo Vazquez MD - Lab. Director Specimen Serum Performing Organization Address [facility] Centercode Phone Number [facility] [address] [place] [address] O2 saturation, venous (09/26/2017 2:10 AM) Hemoglobin, venous, syringe 8.1 (L) 12.0 - 16.0 g/dL [facility] DEPARTMENT OF PATHOLOGY AND GENOMIC MEDICINE O2 saturation, venous 80 (H) 40 - 70 % [facility] DEPARTMENT OF PATHOLOGY AND GENOMIC MEDICINE Specimen Blood Performing Organization Address [facility] Centercook Phone Number [facility] DEPARTMENT OF PATHOLOGY [address] [place] [address] AND [facility] Lactic acid level (09/26/2017 2:10 AM)Only the most recent of2 resultswithin the time period is included. Lactic acid 1.6 0.5 - 2.2 mmol/L [facility] DEPARTMENT OF PATHOLOGY AND GENOMIC MEDICINE Specimen Plasma specimen Performing Organization Address [facility]ercook Phone Number [facility] DEPARTMENT OF PATHOLOGY [address] [place] [address]. [place] [address] AND [facility] Respiratory pathogen panel (09/26/2017 12:15 AM) Respiratory pathogen Negative for all pathogens tested: [facility] DEPARTMENT OF panel Negative for Adenovirus PATHOLOGY AND GENOMIC Negative for Coronavirus HKU1 MEDICINE Negative for Coronavirus NL63 Negative for Coronavirus 229E Negative for Coronavirus OC43 Negative for Human Metapneumovirus Negative for Rhinovirus/Enterovirus Negative for Influenza A Negative for Influenza A/H1 Negative for Influenza A/H3 Negative for Influenza A/H1-2009 Negative for Influenza B Negative for Parainfluenza Virus 1 Negative for Parainfluenza Virus 2 Negative for Parainfluenza Virus 3 Negative for Parainfluenza Virus 4 Negative for Respiratory Syncytial Virus Negative for Bordetella pertussis Negative for Chlamydophila pneumoniae Negative for Mycoplasma pneumoniae This real-time PCR assay detects the presence of nucleic acids (RNA or DNA) for the respiratory pathogens listed. A result of "Not-detected" does not exclude the possibility of the presence of one or more pathogens at concentrations less than the detectable limits of the assay. Comment: Specimen Information Specimen Source: Nares Specimen Site: Right Specimen Nares - Right Performing Organization Address [facility] Centercode Phone Number [facility] DEPARTMENT OF PATHOLOGY AND [address] [place] [address] Streptococcus pneumoniae urinary antigen (09/25/2017 10:35 PM) Strep pneumo urinary Ag Negative for Streptococcus pneumoniae antigen. [facility] DEPARTMENT OF Comment: PATHOLOGY AND GENOMIC Specimen Information MEDICINE Specimen Source: Urine Specimen Site: [place] Specimen Urine - [place] Performing Organization Address [facility] Phone Number [facility] DEPARTMENT OF PATHOLOGY AND [address] [place] [address] Legionella urinary antigen (09/25/2017 10:35 PM) Legionella urinary Negative for Legionella serogroup 1 antigen. [facility] DEPARTMENT OF antigen Comment: PATHOLOGY AND GENOMIC Specimen Information MEDICINE Specimen Source: Urine Specimen Site: [place] Specimen Urine - [place] Performing Organization Address [facility] Phone Number [facility] DEPARTMENT OF PATHOLOGY AND [address] [place] [address] ECG 12 lead (09/25/2017 9:40 PM) Ventricular rate 97 [facility]USE Atrial rate 97 [facility] MUSE CA interval 166 [facility] MUSE QRSD interval 70 [facility] QT interval 364 [facility] M[facility] QTC interval 462 [facility] MUSE P axis 1 39 [facility] QRS axis 1 55 [facility] MUSE T wave axis 53 [facility] MUSE EKG impression Normal sinus rhythm-Nonspecific ST abnormality-Abnormal ECG-In automated comparison with ECG of 23-SEP-2017 11:52,-Vent. rate has increased BY 49 [id number] change in ST segment in Anterior bonifacio [facility] MUSE ds-Nonspecific T wave abnormality no longer evident in Anterior leads-QT has lengthened- Performing Organization Address [facility] Phone Number [facility] MUSE [address] [place] [id number] Legionella culture (09/25/2017 9:30 PM) Legionella culture No Legionella isolated. [facility] DEPARTMENT OF isolate Comment: PATHOLOGY AND GENOMIC Specimen Information MEDICINE Specimen Source: Sputum Specimen Site: Expectorated Specimen Sputum - Expectorated Performing Organization Address [facility]ercode Phone Number [facility] DEPARTMENT OF PATHOLOGY AND [address] [place] [address] [facility] Blood culture, aerobic & anaerobic (09/25/2017 8:35 PM)Only the most recent of2 resultswithin the time period is included. Blood culture isolate No growth after 5 days of incubation. [facility] DEPARTMENT OF Comment: PATHOLOGY AND GENOMIC Specimen Information MEDICINE Specimen Source: Blood Specimen Site: Line, IJ (intrajugular) Specimen Blood - Line, IJ (intrajugular) Performing Organization Address [facility]ercode Phone Number [facility] DEPARTMENT OF PATHOLOGY AND [address] [place] [address] [facility] B natriuretic peptide (09/25/2017 8:18 PM) BNP 3,623 (H) 0 - 100 pg/mL [facility] DEPARTMENT OF PATHOLOGY AND GENOMIC MEDICINE Specimen Blood Performing Organization Address [facility]ercook Phone Number [facility] DEPARTMENT OF PATHOLOGY [address] [place] [address] AND [employer] MEDICINE after 06/01/2017 Insurance Payer Benefit Plan / Group Subscriber ID Type Phone Address BCBS BCBS CHOICE PPO/[employer] EMPL PPO xxxxxxxxxxxx PPO [phone] [place] [address]
[2018-06-02] MEDS ORDERED: NA CHLORIDE 0.9% 1,000 ML ONE (16:17)
[2018-06-02] MEDS ORDERED: ONDANSETRON 4 MG/2 ML VIAL ONE (16:17)
[2018-06-02] MEDS ORDERED: LORazepam 2 MG/ML VIAL ONE (16:17)
[2018-06-02 16:31] LABS: Absolute Monocytes 0.6 K/uL (0.1-1.3); Absolute Neutrophil 8.7 K/uL (1.8-8.0); Basophils % 0.6 % (0-1.3); Eosinophils % 0.7 % (0-4.4); Hematocrit 38.7 % (36.0-45.0); Lymphocytes % 24.3 % (15.3-44.8); MCH 31.4 pg (27.0-35.0); MCV 90.6 fL (80-100); MPV 7.2 fL (7.6-11.3); Monocytes % 4.7 % (3.3-12.3); RBC Red Blood Cell Count 4.27 M/uL (3.86-4.86)
--- NOTE | 2018-06-02 16:41 | RAD REPORT ---
EXAM DESCRIPTION: RAD - Chest Single View - 06/02/2018 4:28 pm CLINICAL HISTORY: PALPITATIONS Chest pain. COMPARISON: Chest Single View dated 05/29/2018; Chest Single View dated 09/25/2017; Chest Single View dated 09/25/2017; Chest Single View dated 03/07/2016 FINDINGS: Portable technique limits examination quality. The lungs are grossly clear. The heart is normal in size. No displaced fractures. IMPRESSION: No acute intrathoracic process suspected.
[2018-06-02 16:48] LABS: ALT/SGPT 19 U/L (12-78); AST/SGOT 26 U/L (15-37); Albumin 3.8 g/dL (3.4-5.0); Alkaline Phosphatase 82 U/L (45-117); BUN Blood Urea Nitrogen 8 mg/dL (7-18); Bicarbonate 23 mmol/L (21-32); Bilirubin Direct < 0.1 mg/dL (0-0.2); Bilirubin Total 0.2 mg/dL (0.2-1.0); Glucose Level 86 mg/dL (74-106); Lipase 61 U/L (73-393); Potassium 4.3 mmol/L (3.5-5.1); Protein, Total 7.2 g/dL (6.4-8.2); Sodium Level 126 mmol/L (136-145)
--- NOTE | 2018-06-02 17:13 | EDPHYS ---
Physician Documentation [facility] Name: Pratibha Jennings Age: 52 yrs Sex: Female : 1965 Arrival Date: 06/02/2018 Time: 15:45 Bed 15 Private MD: Von Chaves C ED Physician Rigoberto Carmichael HPI: 06/02 16:06 This 52 yrs old Female presents to ER via Ambulatory with complaints of rn Nausea, Heart Racing. 16:07 The patient presents with a history of heart racing. Context: The symptoms occur with rn anxiety. Onset: The symptoms/episode began/occurred 1 week(s) ago. Duration: The patient or guardian reports multiple episodes, that are intermittent. Modifying factors: The symptoms are aggravated by nothing. The symptoms are alleviated by nothing. Associated signs and symptoms: Pertinent positives: anxiety, nausea, syncope, Pertinent negatives: chest pain, fever. Severity of symptoms: At their worst the symptoms were moderate in the emergency department the symptoms are unchanged. The patient has experienced similar episodes in the past. The patient has not recently seen a physician. Reports palpitations, heart racing, began last week, seen here, told was stress reaction/anxiety, she stopped her anxiety medication, hasn't restarted it, no fever, + nausea from worrying so much. . 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 N/A - Post-menopause aj Historical: - Allergies: 15:50 Iodine; aj - Home Meds: 15:50 Ambien 5 mg Oral tab 1 tab once daily [Active]; diazepam 5 mg Oral tab 1 tab daily aj [Active]; gabapentin 600 mg Oral tab 1 tab daily [Active]; lidocaine patch [Active]; Lipitor 40 mg Oral tab 1 tab once daily [Active]; metoprolol tartrate 25 mg Oral tab 1 tab once daily [Active]; morphine 15 mg Oral tab 1 tab every 4 hours [Active]; Neurontin 600 mg Oral tab 1 tab daily [Active]; oxycodone-acetaminophen 10-650 mg Oral tab 1 tab every 6 hours [Active]; tizanidine 4 mg Oral cap 1 cap [Active]; Valium 5 mg Oral tab 1 tab daily [Active]; Zanaflex 4 mg Oral tab 1 tab every 8 hours [Active]; Zofran Oral [Active]; - PMHx: 15:50 Back pain; Chronic pain; Degenerative disc disease; Hyperlipidemia; Hypertension; aj - PSHx: 15:50 back surgeries; heath knee; aj - Immunization history:: Adult Immunizations up to date. - Social history:: Smoking status: Patient uses tobacco products, smokes one-half pack cigarettes per day. - Ebola Screening: : Patient negative for fever greater than or equal to 101.5 degrees Fahrenheit, and additional compatible Ebola Virus Disease symptoms Patient denies exposure to infectious person Patient denies travel to an Ebola-affected area in the 21 days before illness onset No symptoms or risks identified at this time. - Family history:: not pertinent. - Hospitalizations: : No recent hospitalization is reported. ROS: 16:07 Constitutional: Negative for fever, chills, and weight loss, Eyes: Negative for injury, rn pain, redness, and discharge, Neck: Negative for injury, pain, and swelling, Cardiovascular: palpitations, no chest pain Respiratory: Negative for shortness of breath, cough, wheezing, and pleuritic chest pain, Abdomen/GI: Negative for abdominal pain, nausea, vomiting, diarrhea, and constipation, MS/Extremity: Negative for injury and deformity, Skin: Negative for injury, rash, and discoloration, Neuro: Negative for numbness, tingling, and seizure. Exam: 16:07 Constitutional: This is a well developed, well nourished patient who is awake, alert, rn appears anxious, hyperventilating but can control breathing during exam and speaks normally Head/Face: Normocephalic, atraumatic. Eyes: Pupils equal round and reactive to light, extra-ocular motions intact. Lids and lashes normal. Conjunctiva and sclera are non-icteric and not injected. Cornea within normal limits. Periorbital areas with no swelling, redness, or edema. Neck: Trachea midline, no thyromegaly or masses palpated, and no cervical lymphadenopathy. Supple, full range of motion without nuchal rigidity, or vertebral point tenderness. No Meningismus. Cardiovascular: Regular rate and rhythm with a normal S1 and S2. No gallops, murmurs, or rubs. Normal PMI, no JVD. No pulse deficits. Respiratory: Lungs have equal breath sounds bilaterally, clear to auscultation and percussion. No rales, rhonchi or wheezes noted. No increased work of breathing, no retractions or nasal flaring. Abdomen/GI: Soft, non-tender, with normal bowel sounds. No distension or tympany. No guarding or rebound. No evidence of tenderness throughout. Vital Signs: 15:50 BP 176 / 116; Pulse 106; Resp 22; Temp 98.6; Pulse Ox 98% on R/A; Weight 58.51 kg; aj Height 5 ft. 5 in. (165.10 cm); 17:06 BP 132 / 80; Pulse 88; Resp 15; Pulse Ox 100% on R/A; hb 15:50 Body Mass Index 21.47 (58.51 kg, 165.10 cm) aj MDM: 15:54 Patient medically screened. rn 17:11 Differential diagnosis: dehydration, stress disorder, anxiety disorder. Data reviewed: rn vital signs, nurses notes, lab test result(s), EKG, radiologic studies, plain films, and as a result, I will discharge patient. Counseling: I had a detailed discussion with the patient and/or guardian regarding: the historical points, exam findings, and any diagnostic results supporting the discharge/admit diagnosis, lab results, radiology results, the need for outpatient follow up, to return to the emergency department if symptoms worsen or persist or if there are any questions or concerns that arise at home. Response to treatment: the patient's symptoms have markedly improved after treatment, the patient's condition has returned to base line, the patient is now symptom free, and as a result, I will discharge patient. Special discussion: I discussed with the patient/guardian in detail that at this point there is no indication for admission to the hospital. It is understood, however, that if the symptoms persist or worsen the patient needs to return immediately for re-evaluation. ED course: Pt much improved, improved vitals with ativan, will dc home with a few tabs of valium with pcp f/u on Tuesday, recommend she gets back on her anxiety medication and defer rest to pcp. . 06/02 16:05 Order name: CBC with Diff; Complete Time: 16:55 rn 06/02 16:05 Order name: Basic Metabolic Panel; Complete Time: 16:55 rn 06/02 16:05 Order name: Troponin (emerg Dept Use Only); Complete Time: 16:55 rn 06/02 16:05 Order name: Creatinine for Radiology; Complete Time: 16:55 rn 06/02 16:05 Order name: Hepatic Function; Complete Time: 16:55 rn 06/02 16:05 Order name: Lipase; Complete Time: 16:55 rn 06/02 15:49 Order name: EKG; Complete Time: 15:49 ss 06/02 15:49 Order name: EKG - Nurse/Tech; Complete Time: 16:03 ss 06/02 16:05 Order name: IV Start; Complete Time: 16:21 rn 06/02 16:06 Order name: XRAY Chest (1 view); Complete Time: 16:55 rn 06/02 16:05 Order name: Labs collected and sent; Complete Time: 16:21 rn Administered Medications: 16:25 Drug: Ativan 1 mg Route: IVP; Site: right antecubital; hb 17:20 Follow up: Response: No adverse reaction hb 16:25 Drug: NS 0.9% 1000 ml Route: IV; Rate: 1000 ml; Site: right antecubital; hb 17:20 Follow up: Response: No adverse reaction; IV Status: Completed infusion hb 16:25 Drug: Zofran 4 mg Route: IVP; Site: right antecubital; hb 17:00 Follow up: Response: No adverse reaction; Nausea is decreased hb Disposition: 06/02/18 17:12 Discharged to Home. Impression: Anxiety disorder, unspecified, Acute stress reaction, Palpitations. - Condition is Stable. - Discharge Instructions: Palpitations, Generalized Anxiety Disorder. - Prescriptions for Valium 2 mg Oral Tablet - take 1 tablet by ORAL route every 8 hours As needed; 10 tablet. Zofran ODT 4 mg Oral tablet,disintegrating - place 1 tablet by TRANSLINGUAL route every 8 hours As needed; 15 tablet. - Medication Reconciliation Form, Thank You Letter, Antibiotic Education, Prescription Opioid Use form. - Follow up: Private Physician; When: As needed; Reason: Recheck today's complaints, Re-evaluation by your physician. - Problem is an ongoing problem. - Symptoms have improved. Signatures: Dispatcher [employer] EDFelicia Bradley RN Rigoberto Ortega MD MD rn Smirch, Shelby, RN RN ss Baxter, Heather, RN RN Corrections: (The following items were deleted from the chart) 17:29 17:12 06/02/2018 17:12 Discharged to Home. Impression: Anxiety disorder, unspecified; hb Acute stress reaction; Palpitations. Condition is Stable. Forms are Medication Reconciliation Form, Thank You Letter, Antibiotic Education, Prescription Opioid Use. Follow up: Private Physician; When: As needed; Reason: Recheck today's complaints, Re-evaluation by your physician. Problem is an ongoing problem. Symptoms have improved. rn
--- NOTE | 2018-06-02 17:13 | ER ---
Nurse's Notes [facility] Name: Pratibha Jennings Age: 52 yrs Sex: Female : 1965 Arrival Date: 06/02/2018 Time: 15:45 Bed 15 Private MD: Von Chaves C Diagnosis: Anxiety disorder, unspecified;Acute stress reaction;Palpitations Presentation: 06/02 15:48 Presenting complaint: Patient states: Reports nausea, diaphoresis and palpitations aj since Tuesday when she was seen in this ER for same complaint. Discharged and instructed to follow up with PCP. Unable to get appointment until Tuesday. Transition of care: patient was not received from another setting of care. Onset of symptoms was May 30, 2018. Risk Assessment: Do you want to hurt yourself or someone else? Patient reports no desire to harm self or others. Initial Sepsis Screen: Does the patient meet any 2 criteria? No. Patient's initial sepsis screen is negative. Does the patient have a suspected source of infection? No. Patient's initial sepsis screen is negative. Care prior to arrival: None. 15:48 Method Of Arrival: Ambulatory aj 15:48 Acuity: NUSRAT 3 aj Triage Assessment: 15:50 General: Appears in no apparent distress. comfortable, Behavior is calm, cooperative, aj appropriate for age. Pain: Denies pain. Neuro: Level of Consciousness is awake, alert, obeys commands, Oriented to person, place, time, situation, Appropriate for age. Cardiovascular: Reports diaphoresis, palpitations, Capillary refill < 3 seconds in bilateral fingers Patient's skin is warm and dry. Respiratory: Airway is patent Respiratory effort is even, unlabored, Respiratory pattern is regular, symmetrical. GI: Reports nausea. Derm: Skin is intact, is healthy with good turgor, Skin is pink, warm \T\ dry. normal. 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 aj Historical: - Allergies: 15:50 Iodine; aj - Home Meds: 15:50 Ambien 5 mg Oral tab 1 tab once daily [Active]; diazepam 5 mg Oral tab 1 tab daily aj [Active]; gabapentin 600 mg Oral tab 1 tab daily [Active]; lidocaine patch [Active]; Lipitor 40 mg Oral tab 1 tab once daily [Active]; metoprolol tartrate 25 mg Oral tab 1 tab once daily [Active]; morphine 15 mg Oral tab 1 tab every 4 hours [Active]; Neurontin 600 mg Oral tab 1 tab daily [Active]; oxycodone-acetaminophen 10-650 mg Oral tab 1 tab every 6 hours [Active]; tizanidine 4 mg Oral cap 1 cap [Active]; Valium 5 mg Oral tab 1 tab daily [Active]; Zanaflex 4 mg Oral tab 1 tab every 8 hours [Active]; Zofran Oral [Active]; - PMHx: 15:50 Back pain; Chronic pain; Degenerative disc disease; Hyperlipidemia; Hypertension; aj - PSHx: 15:50 back surgeries; heath knee; aj - Immunization history:: Adult Immunizations up to date. - Social history:: Smoking status: Patient uses tobacco products, smokes one-half pack cigarettes per day. - Ebola Screening: : Patient negative for fever greater than or equal to 101.5 degrees Fahrenheit, and additional compatible Ebola Virus Disease symptoms Patient denies exposure to infectious person Patient denies travel to an Ebola-affected area in the 21 days before illness onset No symptoms or risks identified at this time. - Family history:: not pertinent. - Hospitalizations: : No recent hospitalization is reported. Screenin:21 Abuse screen: Denies threats or abuse. Denies injuries from another. Nutritional ss screening: No deficits noted. Tuberculosis screening: Never had TB. Fall Risk None identified. Assessment: 16:00 General: Appears in no apparent distress. ill, Behavior is cooperative, anxious. Pain: hb Denies pain. Neuro: Level of Consciousness is awake, alert, obeys commands, Oriented to person, place, time, situation. Cardiovascular: Capillary refill < 3 seconds Patient's skin is warm and dry. Respiratory: Airway is patent Trachea midline Respiratory effort is even, unlabored, Respiratory pattern is regular, symmetrical, Breath sounds are clear bilaterally. GI: Abdomen is non-distended, Bowel sounds present X 4 quads. Abd is soft and non tender X 4 quads. Reports diarrhea, nausea, vomiting. : No signs and/or symptoms were reported regarding the genitourinary system. EENT: No signs and/or symptoms were reported regarding the EENT system. Derm: No signs and/or symptoms reported regarding the dermatologic system. Skin is intact, is healthy with good turgor, Skin is pink, warm \T\ dry. Musculoskeletal: No signs and/or symptoms reported regarding the musculoskeletal system. 17:00 Reassessment: Patient appears in no apparent distress at this time. Patient and/or hb family updated on plan of care and expected duration. Pain level reassessed. Patient is alert, oriented x 3, equal unlabored respirations, skin warm/dry/pink. Patient states symptoms have improved. Vital Signs: 15:50 BP 176 / 116; Pulse 106; Resp 22; Temp 98.6; Pulse Ox 98% on R/A; Weight 58.51 kg; aj Height 5 ft. 5 in. (165.10 cm); 17:06 BP 132 / 80; Pulse 88; Resp 15; Pulse Ox 100% on R/A; hb 15:50 Body Mass Index 21.47 (58.51 kg, 165.10 cm) aj ED Course: 15:45 Patient arrived in ED. mr 15:45 Von Chaves MD is Private Physician. mr 15:49 Triage completed. aj 15:50 Arm band placed on right wrist. Patient placed in an exam room. aj 15:52 EKG completed in triage. Results shown to MD. aj 15:54 Rigoberto Carmichael MD is Attending Physician. rn 16:02 Lissy Ramirez RN is Primary Nurse. hb 16:02 EKG done, by cat scan technologist. reviewed by Rigoberto Carmichael MD. sm3 16:21 Patient has correct armband on for positive identification. Bed in low position. Call ss light in reach. Side rails up X2. Adult w/ patient. campus monitor on. Pulse ox on. NIBP on. 16:21 Inserted saline lock: 22 gauge in right antecubital area, using aseptic technique. ss Blood collected. 16:27 X-ray completed. Portable x-ray completed in exam room. Patient tolerated procedure kp1 well. 16:29 XRAY Chest (1 view) In Process Unspecified. EDMS 17:28 No provider procedures requiring assistance completed. IV discontinued, intact, hb bleeding controlled, No redness/swelling at site. Pressure dressing applied. Administered Medications: 16:25 Drug: Ativan 1 mg Route: IVP; Site: right antecubital; hb 17:20 Follow up: Response: No adverse reaction hb 16:25 Drug: NS 0.9% 1000 ml Route: IV; Rate: 1000 ml; Site: right antecubital; hb 17:20 Follow up: Response: No adverse reaction; IV Status: Completed infusion hb 16:25 Drug: Zofran 4 mg Route: IVP; Site: right antecubital; hb 17:00 Follow up: Response: No adverse reaction; Nausea is decreased hb Outcome: 17:12 Discharge ordered by . rn 17:28 Discharged to home ambulatory. hb 17:28 Condition: stable 17:28 Discharge instructions given to patient, Instructed on discharge instructions, follow up and referral plans. medication usage, Demonstrated understanding of instructions, follow-up care, medications, Prescriptions given X 2. 17:29 Patient left the ED. hb Signatures: Dispatcher [employer] EDMS Felicia Alonso RN RN aj Rivera, Maria mr Rigoberto Carmichael MD MD rn Smirch, Shelby, RN RN ss Baxter, Heather, RN RN hb Poole, Kathy kp1 Sully Antonio sm3 Corrections: (The following items were deleted from the chart) 17:13 17:06 BP 132 / 80; Pulse 96bpm; Resp 15bpm; Pulse Ox 100% RA; hb hb
--- NOTE | 2018-06-03 07:12 | EKG ---
Test Date: 2018-06-02 Test Time: 15:57:05 [employer] Agent: [employer] MEASUREMENT RESULTS: Intervals: Rate: 102 [place]: 124 QRSD: 68 QT: 328 QTc: 427 [place]: P: 66 [place]: 124 QRS: 62 T: 64 INTERPRETIVE STATEMENTS: Sinus tachycardia Minimal voltage criteria for LVH, may be normal variant Borderline ECG Compared to ECG 05/29/2018 15:17:48 Sinus rhythm no longer present Electronically Signed On 06-03-18 07:11:33 CDT by Lei Camp
== END 2018-06-02 17:29 | disposition home or self-care (01) ==
LOC: ER 15:42
DX: F41.9 Anxiety disorder, unspecified (principal); F43.0 Acute stress reaction; R00.2 Palpitations; E78.5 Hyperlipidemia, unspecified; I10 Essential (primary) hypertension; F17.210 Nicotine dependence, cigarettes, uncomplicated; Z88.8 Allergy status to other drugs, medicaments and biological substances
CPT/HCPCS: 36415; 71045; 80048; 80076; 83690; 84484; 85025; 93005; 96361; 96374; 96375; 99284; J2405; J7030

== ENCOUNTER 2018-07-18 09:52 | Emergency (ER) | payer BC ==
--- OUTSIDE RECORDS SUMMARY | 2018-07-18 09:55 | XMS REPORT | Clinical Summary ---
:1965 Author Organization [facility] Address [address] [place] [address] Care Team Providers Name Role Phone Provider, [...] failure with hypoxia; MD Teresa Hyponatremia after 07/17/2017 Immunizations Name Dates Previously Given Next Due [...] Taken Blood Pressure 124/76 01/19/2018 11:58 AM [employer] Pulse 62 01/19/2018 11:58 AM [employer] Temperature 36.3 C (97.4 F) 01/19/2018 11:58 AM [employer] Respiratory Rate 20 10/06/2017 3:01 PM [employer] Oxygen Saturation 100% 01/19/2018 11:58 AM [employer] Inhaled Oxygen Concentration - - Weight 62.1 kg (137 lb) 01/19/2018 11:58 AM [employer] ME[employer] Height 163.8 cm (5' 4.5") 01/19/2018 11:58 AM [employer] Body Mass Index 23.15 01/19/2018 11:58 AM [employer]MENT [employer] Plan of Treatment Health Maintenance Due Date Last Done Comments CERVICAL CANCER SCREENING 1985 BREAST CANCER SCREENING 2014 SHINGRIX VACCINE (#1) 2014 INFLUENZA VACCINE 06/28/2018 10/06/2017 COLON CANCER SCREENING 10/06/2027 10/06/2017, 09/26/2017 Implants Implanted Type [employer] Architect Device Expiration Date Model / Serial Identifier / Lot Stimulator Stimulator MEDTRONIC / / Procedures Procedure Name Priority Date/Time Associated Comments Diagnosis CT CHEST WO CONTRAST Routine 01/19/2018 9:26 Cavitary lesion of Results for this AM [employer] lung procedure are in Hemoptysis the results section. XR CHEST 2 VW Routine 01/04/2018 12:09 Pneumonia, Results for this PM [employer] organism procedure are in unspecified(486) the results Postoperative section. septicemia ESTIMATED GFR Routine 10/06/2017 12:30 Results for this PM [employer] procedure are in the results section. MAGNESIUM LEVEL Routine 10/06/2017 12:30 Results for this PM [employer] procedure are in the results section. COMPREHENSIVE METABOLIC Routine 10/06/2017 12:30 Results for this PANEL PM [employer] procedure are in the results section. HC COMPLETE BLD COUNT Routine 10/06/2017 12:30 Results for this W/AUTO DIFF PM [employer] procedure are in the results section. OCCULT BLOOD, STOOL Routine 10/06/2017 7:30 Results for this AM [employer] procedure are in the results section. TRANSFUSE RED BLOOD Routine 10/06/2017 3:58 CELLS AM [employer] PREPARE RBC Timed 10/05/2017 6:35 Results for this PM [employer] procedure are in the results section. TYPE AND SCREEN Timed 10/05/2017 6:35 Results for this PM [employer] procedure are in the results section. XR CHEST 1 VW PORTABLE Routine 10/05/2017 6:48 Results for this AM [employer] procedure are in the results section. ESTIMATED GFR Routine 10/05/2017 6:10 Results for this AM [employer] procedure are in the results section. HC COMPLETE BLD COUNT Routine 10/05/2017 6:10 Results for this W/AUTO DIFF AM [employer] procedure are in the results section. COMPREHENSIVE METABOLIC Routine 10/05/2017 6:10 Results for this PANEL AM [employer] procedure are in the results section. ESTIMATED GFR Routine 10/04/2017 8:40 Results for this PM [employer] procedure are in the results section. MAGNESIUM LEVEL Routine 10/04/2017 8:40 Results for this PM [employer] procedure are in the results section. HC COMPLETE BLD COUNT Routine 10/04/2017 8:40 Results for this W/AUTO DIFF PM [employer] procedure are in the results section. BASIC METABOLIC PANEL Routine 10/04/2017 8:40 Results for this PM [employer] procedure are in the results section. HC US GUIDED VASCULAR Routine 10/04/2017 5:45 Results for this ACCESS PM [employer] procedure are in the results section. HC CVL PICC INSERT 5 Routine 10/04/2017 5:45 Results for this YRS OR > PM [employer]IC procedure are in the results section. POC GLUCOSE Routine 10/04/2017 7:26 Results for this AM [employer] procedure are in the results section. POC GLUCOSE Routine 10/03/2017 9:02 Results for this PM [employer] procedure are in the results section. POC GLUCOSE Routine 10/03/2017 4:20 Results for this PM [employer] procedure are in the results section. POC GLUCOSE Routine 10/03/2017 11:25 Results for this AM [employer] procedure are in the results section. POC GLUCOSE Routine 10/03/2017 7:42 Results for this AM [employer] procedure are in the results section. ESTIMATED GFR Routine 10/03/2017 6:30 Results for this AM [employer] procedure are in the results section. BASIC METABOLIC PANEL Routine 10/03/2017 6:30 Results for this AM [employer]CH[employer]IC procedure are in the results section. HC COMPLETE BLD COUNT Routine 10/03/2017 6:30 Results for this W/AUTO DIFF AM [employer] procedure are in the results section. ESTIMATED GFR Routine 10/03/2017 6:30 Results for this AM [employer] procedure are in the results section. CREATININE LEVEL Routine 10/03/2017 6:30 Results for this AM [employer] procedure are in the results section. POC GLUCOSE Routine 10/02/2017 8:43 Results for this PM [employer] procedure are in the results section. POC GLUCOSE Routine 10/02/2017 5:20 Results for this PM [employer] procedure are in the results section. ESTIMATED GFR Routine 10/02/2017 1:35 Results for this PM [employer] procedure are in the results section. IONIZED CALCIUM Routine 10/02/2017 1:35 Results for this PM [employer] procedure are in the results section. MAGNESIUM LEVEL Routine 10/02/2017 1:35 Results for this PM [employer] procedure are in the results section. BASIC METABOLIC PANEL Routine 10/02/2017 1:35 Results for this PM [employer] procedure are in the results section. POC GLUCOSE Routine 10/02/2017 12:25 Results for this PM [employer] procedure are in the results section. ARTERIAL BLOOD GAS STAT 10/02/2017 10:50 Results for this AM [employer] procedure are in the results section. POC GLUCOSE Routine 10/02/2017 8:31 Results for this AM [employer] procedure are in the results section. XR CHEST 1 VW PORTABLE Routine 10/02/2017 8:18 Results for this AM [employer] procedure are in the results section. CONSULT TO OSTOMY CARE Routine 10/02/2017 7:08 NURSE AM [employer]CH[employer]IC POC GLUCOSE Routine 10/02/2017 5:09 Results for this AM [employer] procedure are in the results section. IONIZED CALCIUM, Routine 10/02/2017 4:08 Results for this ARTERIAL AM [employer] procedure are in the results section. ARTERIAL BLOOD GAS Routine 10/02/2017 4:08 Results for this AM [employer]CH[employer]IC procedure are in the results section. SMEAR REVIEW Routine 10/02/2017 4:00 Results for this AM [employer] procedure are in the results section. CBC WITH PLATELET AND Routine 10/02/2017 4:00 Results for this DIFFERENTIAL AM [employer] procedure are in the results section. ESTIMATED GFR Routine 10/02/2017 4:00 Results for this AM [employer] procedure are in the results section. PHOSPHORUS LEVEL Routine 10/02/2017 4:00 Results for this AM [employer] procedure are in the results section. MAGNESIUM LEVEL Routine 10/02/2017 4:00 Results for this AM [employer] procedure are in the results section. BASIC METABOLIC PANEL Routine 10/02/2017 4:00 Results for this AM [employer] procedure are in the results section. POC [...] are in SPECTRAL COLOR DOPPLER the results (73587) section. TRANSFUSE RED BLOOD Routine 09/26/2017 2:14 [...] CDT procedure are in the results section. NE INSERT Routine 09/26/2017 2:57 Elevated troponin Results [...] procedure are in the results section. after 07/17/[address] Chest Wo Contrast (01/19/2018 9:26 [...] intact. A spinal stimulator is partially imaged. 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 A spinal stimulator is partially imaged. [facility]-[id number] Performing Organization Address City/State/Zipcode Phone Number [facility] [address] [place] [address] XR Chest 2 Vw (01/04/2018 12:09 PM) [...] The remainder of the examination is unremarkable. 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 Thoracic spinal cord simulator remains in place. Improved aeration has occurred throughout the lungs though coarse interstitial markings persist. Pleural margins are sharp. The remainder of the examination is unremarkable. [facility]-[id number] Performing Organization Address City/State/Zipcode Phone Number [facility] [address] [place] [address] Estimated GFR (10/06/2017 12:30 PM)Only the most recent of17 resultswithin the time period is included. GFR Non Af Amer 88 mL/min/1.73 m2 [facility] DEPARTMENT OF PATHOLOGY AND GENOMIC MEDICINE GFR Af Amer >90 mL/min/1.73 m2 [facility] DEPARTMENT OF Comment: PATHOLOGY AND [...] specimen Performing Organization Address City/State/Zipcode Phone Number [facility] DEPARTMENT OF PATHOLOGY [address] [place] [address] AND [employer] MEDICINE CBC with platelet and differential (10/06/2017 12:30 PM)Only the most recent of11 resultswithin the time period is included. WBC 16.2 (H) 4.5 - 11.0 k/uL [facility] DEPARTMENT OF PATHOLOGY AND GENOMIC MEDICINE RBC 3.73 (L) 4.20 - 5.50 m/uL [facility] DEPARTMENT OF PATHOLOGY AND GENOMIC MEDICINE HGB 10.4 (L) 12.0 - 16.0 g/dL [facility] DEPARTMENT OF PATHOLOGY AND GENOMIC MEDICINE HCT 31.4 (L) 37.0 - 47.0 % [facility] DEPARTMENT OF PATHOLOGY AND GENOMIC MEDICINE MCV 84.2 82.0 - 100.0 fL [facility] DEPARTMENT OF PATHOLOGY AND GENOMIC MEDICINE MCH 27.9 27.0 - 34.0 pg [facility] DEPARTMENT OF PATHOLOGY AND GENOMIC MEDICINE MCHC 33.1 31.0 - 37.0 g/dL [facility] DEPARTMENT OF PATHOLOGY AND GENOMIC MEDICINE RDW - SD 54.6 37.0 - 55.0 fL [facility] DEPARTMENT OF PATHOLOGY AND GENOMIC MEDICINE MPV 9.3 6.9 - 11.0 fL [facility] DEPARTMENT OF PATHOLOGY AND GENOMIC MEDICINE Platelet count 345 150 - 400 K/uL [facility] DEPARTMENT OF PATHOLOGY AND GENOMIC MEDICINE Nucleated RBC 0.00 /100 WBC [facility] DEPARTMENT OF PATHOLOGY AND GENOMIC MEDICINE Neutrophils 81.2 (H) 39.0 - 69.0 % [facility] DEPARTMENT OF PATHOLOGY AND GENOMIC MEDICINE Lymphocytes 9.5 (L) 25.0 - 45.0 % [facility] DEPARTMENT OF PATHOLOGY AND GENOMIC MEDICINE Monocytes 6.2 0.0 - 10.0 % [facility] DEPARTMENT OF PATHOLOGY AND GENOMIC MEDICINE Eosinophils 1.0 0.0 - 5.0 % [facility] DEPARTMENT OF PATHOLOGY AND GENOMIC MEDICINE Basophils 0.4 0.0 - 1.0 % [facility] DEPARTMENT OF PATHOLOGY AND GENOMIC MEDICINE Immature granulocytes 1.7 (H) 0.0 - 1.0 % [facility] DEPARTMENT OF PATHOLOGY AND GENOMIC MEDICINE Specimen Blood Performing Organization Address City/[facility] Phone Number [facility] DEPARTMENT OF PATHOLOGY [address] [place] [address] AND [facility] Magnesium level (10/06/2017 12:30 PM)Only the most recent of9 resultswithin the time period is included. Magnesium 1.9 1.6 - 2.6 mg/dL [facility] OF PATHOLOGY [facility] GENOMIC MEDICINE Specimen Plasma specimen Performing Organization Address City/[facility]/Zipcode Phone Number [facility] DEPARTMENT OF PATHOLOGY [address] [place] [address] AND [facility] Comprehensive metabolic panel (10/06/2017 12:30 PM)Only the most recent of6 resultswithin the time period is included. Sodium 130 (L) 135 - 148 mEq/L [facility] DEPARTMENT OF PATHOLOGY AND GENOMIC MEDICINE Potassium 5.1 (H)Comment: Specimen 3.5 - 5.0 mEq/L [facility] DEPARTMENT is not hemolyzed. PATHOLOGY AND GENOMIC MEDICINE Chloride 98 98 - 112 mEq/L [facility] DEPARTMENT OF PATHOLOGY AND GENOMIC MEDICINE CO2 20 (L) 24 - 31 mEq/L [facility] DEPARTMENT OF PATHOLOGY AND GENOMIC MEDICINE Anion gap 12 7 - 15 mEq/L [facility] DEPARTMENT OF Comment: PATHOLOGY AND GENOMIC Starting from February , anion gap calculation MEDICINE no longer incorporates potassium. Please note the change. BUN 9 6 - 20 mg/dL [facility] DEPARTMENT OF PATHOLOGY AND GENOMIC MEDICINE Creatinine 0.7 0.5 - 0.9 mg/dL [facility] DEPARTMENT OF PATHOLOGY AND GENOMIC MEDICINE Glucose 142 (H) 65 - 99 mg/dL [facility] DEPARTMENT OF PATHOLOGY AND GENOMIC MEDICINE Calcium 8.8 8.3 - 10.2 mg/dL [facility] DEPARTMENT OF PATHOLOGY AND GENOMIC MEDICINE Protein 6.0 (L) 6.3 - 8.3 g/dL [facility] DEPARTMENT OF PATHOLOGY AND GENOMIC MEDICINE Albumin 3.0 (L) 3.5 - 5.0 g/dL [facility] DEPARTMENT OF PATHOLOGY AND GENOMIC MEDICINE A/G ratio 1.0 0.7 - 3.8 [facility] DEPARTMENT OF PATHOLOGY AND GENOMIC MEDICINE Alkaline phosphatase 81 35 - 104 U/L [facility] DEPARTMENT OF PATHOLOGY AND GENOMIC MEDICINE AST 20 10 - 35 U/L [facility] DEPARTMENT OF PATHOLOGY AND GENOMIC MEDICINE ALT 12 5 - 50 U/L [facility] DEPARTMENT OF PATHOLOGY AND GENOMIC MEDICINE Total bilirubin 0.4 0.2 - 1.2 mg/dL [facility] DEPARTMENT OF PATHOLOGY AND GENOMIC MEDICINE Specimen Plasma specimen Performing Organization Address City/[facility] Phone Number [facility] [place] [address] AND [employer] [facility] Transfuse RBC (10/06/2017 7:41 AM)Only the most recent of4 resultswithin the time period is included.Occult blood, stool (10/06/2017 7:30 AM)Only the most recent of2 resultswithin the time period is included. Occult blood, stool Negative for occult blood. [facility] DEPARTMENT OF Comment: PATHOLOGY AND GENOMIC Specimen Information MEDICINE Specimen Source: Stool Specimen Site: Nonpreserved Specimen Stool - Nonpreserved Performing Organization Address City/[facility] Phone Number [facility] [place] [place] [address] AND [employer] [facility] Prepare RBC, 2 Units (10/05/2017 6:35 PM)Only the most recent of2 resultswithin the time period is included. Product name Red Blood Cells -1, [facility] DEPARTMENT OF Leukored PATHOLOGY AND GENOMIC MEDICINE Unit number [id number] [facility] DEPARTMENT OF PATHOLOGY AND GENOMIC MEDICINE Product code [id number] [facility] DEPARTMENT OF PATHOLOGY AND GENOMIC MEDICINE Dispense status Transfused [facility] DEPARTMENT OF PATHOLOGY AND GENOMIC MEDICINE Blood expiration date 20171029 [facility] DEPARTMENT OF PATHOLOGY AND GENOMIC MEDICINE Blood type code 5100 [facility] DEPARTMENT OF PATHOLOGY AND GENOMIC MEDICINE Blood type O POSITIVE [facility] DEPARTMENT OF PATHOLOGY AND GENOMIC MEDICINE Product name Red Blood Cells -1, [facility] DEPARTMENT OF Leukored PATHOLOGY AND GENOMIC MEDICINE Unit number [id number] [facility] DEPARTMENT OF PATHOLOGY AND GENOMIC MEDICINE Product code [id number] [facility] DEPARTMENT OF PATHOLOGY AND GENOMIC MEDICINE Dispense status Transfused [facility] DEPARTMENT OF PATHOLOGY AND GENOMIC MEDICINE Blood expiration date 20171029 [facility] DEPARTMENT OF PATHOLOGY AND GENOMIC MEDICINE Blood type code 5100 [facility] DEPARTMENT OF PATHOLOGY AND GENOMIC MEDICINE Blood type O POSITIVE [facility] DEPARTMENT OF PATHOLOGY AND GENOMIC MEDICINE Performing Organization Address City/[facility]/Zipcode Phone Number [facility] DEPARTMENT OF PATHOLOGY [id number] [place] [address]. [place] [address] AND GENOMIC MEDICINE Type and screen (10/05/2017 6:35 PM)Only the most recent of2 resultswithin the time period is included. ABO grouping OComment: 10/05/17 [facility] DEPARTMENT OF PATHOLOGY Blood is available. AND [employer] MEDICINE Called paz @ 20:02. Nicci Ng Rh type POS [facility] DEPARTMENT OF PATHOLOGY AND GENOMIC MEDICINE Antibody screen (gel) NEG [facility] DEPARTMENT OF PATHOLOGY AND GENOMIC MEDICINE Specimen Blood Performing Organization Address [facility] Phone Number [facility] DEPARTMENT OF PATHOLOGY [address] [place] [address]. [place] [address] AND GENOMIC MEDICINE XR Chest 1 Vw Portable (10/05/2017 6:48 AM)Only the most recent of8 resultswithin the time period is included. Narrative Performed At EXAMINATION:XR CHEST 1 VW PORTABLE [facility] CLINICAL HISTORY:Pneumonia COMPARISON:Most recent. IMPRESSION: Interstitial and scattered patchy alveolar opacities, right greater than left, demonstrate marginal improvement. No pleural effusion is seen. The heart is borderline enlarged. [facility]-[id number] Procedure Note Interface, Radiology Results Incoming - 10/05/2017 7:18 AM [employer] EXAMINATION: XR CHEST 1 VW PORTABLE CLINICAL HISTORY: Pneumonia COMPARISON: Most recent. IMPRESSION: Interstitial and scattered patchy alveolar opacities, right greater than left, demonstrate marginal improvement. No pleural effusion is seen. The heart is borderline enlarged. [facility]-[id number] Performing Organization Address City/[facility]/Zipcode Phone Number [facility] [address] [place] [address] Basic metabolic panel (10/04/2017 8:40 PM)Only the most recent of10 resultswithin the time period is included. Sodium 122 (L) 135 - 148 mEq/L [facility] DEPARTMENT OF PATHOLOGY AND GENOMIC MEDICINE Potassium 3.2 (L) 3.5 - 5.0 mEq/L [facility] DEPARTMENT OF PATHOLOGY AND GENOMIC MEDICINE Chloride 84 (L) 98 - 112 mEq/L [facility] DEPARTMENT OF PATHOLOGY AND GENOMIC MEDICINE CO2 26 24 - 31 mEq/L [facility] DEPARTMENT OF PATHOLOGY AND GENOMIC MEDICINE Anion gap 12 7 - 15 mEq/L [facility] DEPARTMENT OF Comment: PATHOLOGY AND GENOMIC Starting from February , anion gap calculation MEDICINE no longer incorporates potassium. Please note the change. BUN 10 6 - 20 mg/dL [facility] DEPARTMENT OF PATHOLOGY AND GENOMIC MEDICINE Creatinine 0.8 0.5 - 0.9 mg/dL [facility] DEPARTMENT OF PATHOLOGY AND GENOMIC MEDICINE Glucose 210 (H) 65 - 99 mg/dL [facility] DEPARTMENT OF PATHOLOGY AND GENOMIC MEDICINE Calcium 8.1 (L) 8.3 - 10.2 mg/dL [facility] DEPARTMENT OF PATHOLOGY AND GENOMIC MEDICINE Specimen Plasma specimen Performing Organization Address City/State/Zipcode Phone Number [facility] DEPARTMENT OF PATHOLOGY [address] [place] [address] AND [facility] PICC Line Insertion Fluoroscopy (10/04/2017 5:45 PM) Narrative Performed At [facility] Procedure: Left PICC line placement Performing Radiologist: [...] The needle was exchanged for a 5 Norwegian peel-away sheath over the wire. A 5 Norwegian double lumen PICC line was trimmed to [...] placement.The PICC line is ready for use. [facility]-[id number] Procedure Note Interface, Radiology Results Incoming - 10/04/2017 6:11 PM [employer] Procedure: Left PICC line placement Performing Radiologist: [...] The needle was exchanged for a 5 Norwegian peel-away sheath over the wire. A 5 Norwegian double lumen PICC line was trimmed to [...] The PICC line is ready for use. [facility]-[id number] Performing Organization Address City/State/Zipcode Phone Number [facility] [address] [place] [address] PICC Line Vascular Insertion (10/04/2017 5:45 PM) Narrative Performed At [facility] Procedure: Left PICC line placement Performing Radiologist: [...] The needle was exchanged for a 5 Norwegian peel-away sheath over the wire. A 5 Norwegian double lumen PICC line was trimmed to [...] placement.The PICC line is ready for use. [facility]-[id number] Procedure Note Hm Interface, Radiology Results Incoming - 10/04/2017 6:11 PM [employer] Procedure: Left PICC line placement Performing Radiologist: [...] The needle was exchanged for a 5 Norwegian peel-away sheath over the wire. A 5 Norwegian double lumen PICC line was trimmed to [...] The PICC line is ready for use. [facility]-[id number] Performing Organization Address City/[facility]/Zipcode Phone Number [facility] [address] [place] [address] POC glucose (10/04/2017 7:26 AM)Only the most recent of44 resultswithin the time period is included. POC glucose 155 (H) 65 - 99 mg/dL [facility] DEPARTMENT OF PATHOLOGY Comment: AND GENOMIC MEDICINE RN Notified Meter ID: [id number] Bit Shaver: Regalado Performing Organization Address [facility] Phone Number [facility] DEPARTMENT OF PATHOLOGY [address] [place] [address] AND [facility] Creatinine level (10/03/2017 6:30 AM) Creatinine 1.0 (H) 0.5 - 0.9 mg/dL [facility] DEPARTMENT OF PATHOLOGY AND GENOMIC MEDICINE Specimen Plasma specimen Performing Organization Address [facility] Phone Number [facility] DEPARTMENT OF PATHOLOGY [address] [place] [address]. [place] [address] AND [facility] Ionized calcium (10/02/2017 1:35 PM)Only the most recent of5 resultswithin the time period is included. pH 7.48 [facility] DEPARTMENT OF PATHOLOGY AND GENOMIC MEDICINE Ionized calcium 1.01 (L) 1.11 - 1.32 mmol/L [facility] DEPARTMENT OF PATHOLOGY AND GENOMIC MEDICINE Specimen Plasma specimen Performing Organization Address [facility] Phone Number [facility] DEPARTMENT OF PATHOLOGY [address] [place] [address]. [place] [address] AND [facility] Arterial blood gas (10/02/2017 10:50 AM)Only the most recent of9 resultswithin the time period is included. pH, arterial 7.47 (H) 7.35 - 7.45 [facility] DEPARTMENT OF PATHOLOGY AND GENOMIC MEDICINE pCO2, arterial 46 (H) 35 - 45 mmHg [facility] DEPARTMENT OF PATHOLOGY AND GENOMIC MEDICINE pO2, arterial 83 80 - 90 mmHg [facility] DEPARTMENT OF PATHOLOGY AND GENOMIC MEDICINE Bicarbonate, arterial 33.0 (H) 21.0 - 28.0 mmol/L [facility] DEPARTMENT OF PATHOLOGY AND GENOMIC MEDICINE Base excess, arterial 9 (H) -2 - 2 mEq/L [facility] [facility] DEPARTMENT OF PATHOLOGY AND GENOMIC MEDICINE O2 saturation, arterial 98 95 - 100 % [facility] DEPARTMENT OF PATHOLOGY AND GENOMIC MEDICINE Specimen Blood Performing Organization Address [facility] Phone Number [facility] DEPARTMENT OF PATHOLOGY [address] [place] [address]. [place] [address] AND [employer] [facility] Ionized calcium, arterial (10/02/2017 4:08 AM)Only the most recent of3 resultswithin the time period is included. Ionized calcium, arterial 0.90 (L) 1.11 - 1.32 mmol/L [facility] DEPARTMENT OF PATHOLOGY AND GENOMIC MEDICINE Specimen Blood Performing Organization Address [facility] Phone Number [facility] DEPARTMENT OF PATHOLOGY [address] [place] [address]. [place] [address] AND [employer] [facility] Smear review (10/02/2017 4:00 AM) Platelet slide review Bhavya adequateComment: [facility] DEPARTMENT OF Occasional platelet clumps PATHOLOGY AND GENOMIC seen on smear. Interpret MEDICINE result accordingly. Anisocytosis Moderate [facility] DEPARTMENT OF PATHOLOGY AND GENOMIC MEDICINE Ovalocytes Moderate [facility] DEPARTMENT OF PATHOLOGY AND GENOMIC MEDICINE Enlarged platelets Moderate (A) [facility] DEPARTMENT OF PATHOLOGY AND GENOMIC MEDICINE Smudge cells Few [facility] DEPARTMENT OF PATHOLOGY AND GENOMIC MEDICINE Giant platelets Occasional [facility] DEPARTMENT OF PATHOLOGY AND GENOMIC MEDICINE Toxic granulation Slight [facility] DEPARTMENT OF PATHOLOGY AND GENOMIC MEDICINE Neutrophils, vacuolated Slight [facility] DEPARTMENT OF PATHOLOGY AND GENOMIC MEDICINE Performing Organization Address [facility] Phone Number [facility] DEPARTMENT OF PATHOLOGY [address] [place] [address] AND [employer] [facility] Phosphorus level (10/02/2017 4:00 AM)Only the most recent of4 resultswithin the time period is included. Phosphorus 3.6 2.4 - 4.5 mg/dL [facility] DEPARTMENT OF PATHOLOGY AND GENOMIC MEDICINE Specimen Plasma specimen Performing Organization Address [facility] Phone Number [facility] DEPARTMENT OF PATHOLOGY [address] [place] [address] AND [employer] [facility] Sputum culture (09/30/2017 4:58 PM)Only the most recent of2 resultswithin the time period is included. Sputum culture isolate No normal oral candy isolated. (A) [facility] DEPARTMENT OF Comment: PATHOLOGY AND GENOMIC Specimen Information MEDICINE Specimen Source: Sputum Specimen Site: Not specified Sputum culture isolate Jo-Ann albicans [facility] DEPARTMENT OF Many PATHOLOGY AND GENOMIC The performance characteristics of this assay on this isolate MEDICINE were validated by the Microbiology Laboratory at [facility].This source has not been approved by the U.S. Food and Drug Administration.The results are not intended to be used as the sole means for clinical diagnosis or patient management.The Microbiology Laboratory is authorized under the clinical Laboratory Improvement Amendments of 1988 (CLIA-88) to perform high complexity testing. (A) Specimen Sputum - Not specified Performing Organization Address City/State/Zipcode Phone Number [facility] DEPARTMENT OF PATHOLOGY AND [address] [place] [address] GENOMIC MEDICINE Manual differential (09/30/2017 3:29 PM)Only the most recent of6 resultswithin the time period is included. Manual differential PERFORMED [facility] DEPARTMENT OF PATHOLOGY AND GENOMIC MEDICINE Neutrophils 80.0 (H)Comment: 39.0 - 69.0 % [facility] DEPARTMENT OF Corrected result; PATHOLOGY AND GENOMIC previously reported as MEDICINE 0.0 on 09/30/2017 at 16:13 by [facility] Lymphocytes 11.0 (L)Comment: 25.0 - 45.0 % [facility] DEPARTMENT OF Corrected result; PATHOLOGY AND GENOMIC previously reported as MEDICINE 0.0 on 09/30/2017 at 16:13 by [facility] Monocytes 8.0Comment: Corrected 0.0 - 10.0 % [facility] DEPARTMENT OF result; previously PATHOLOGY AND GENOMIC reported as 0.0 on MEDICINE 09/30/2017 at 16:13 by [facility] Eosinophils 0.0 0.0 - 5.0 % [facility] DEPARTMENT OF PATHOLOGY AND GENOMIC MEDICINE Basophils 0.0 0.0 - 1.0 % [facility] DEPARTMENT OF PATHOLOGY AND GENOMIC MEDICINE Metamyelocytes 1 % [facility] DEPARTMENT OF PATHOLOGY AND GENOMIC MEDICINE Myelocytes 1 % [facility] DEPARTMENT OF PATHOLOGY AND GENOMIC MEDICINE Platelet slide review Bhavya adequate [facility] DEPARTMENT OF PATHOLOGY AND GENOMIC MEDICINE Toxic granulation Slight [facility] DEPARTMENT OF PATHOLOGY AND GENOMIC MEDICINE Neutrophils, vacuolated Slight [facility] DEPARTMENT OF PATHOLOGY AND GENOMIC MEDICINE Anisocytosis Moderate [facility] DEPARTMENT OF PATHOLOGY AND GENOMIC MEDICINE Polychromasia Moderate [facility] DEPARTMENT OF PATHOLOGY AND GENOMIC MEDICINE Schistocytes Occasional [facility] DEPARTMENT OF PATHOLOGY AND GENOMIC MEDICINE Performing Organization Address City/[facility] Phone Number [facility] DEPARTMENT OF PATHOLOGY [id number] [place] [address]. [place] [address] AND [employer] [facility] Urinalysis screen and microscopy, with reflex to culture (09/29/2017 12:37 PM) Only the most recent of2 resultswithin the time period is included. Specimen site Catheterized [facility] DEPARTMENT OF PATHOLOGY AND GENOMIC MEDICINE Color, UA Yellow [facility] DEPARTMENT OF PATHOLOGY AND GENOMIC MEDICINE Appearance, UA Sl Cloudy [facility] DEPARTMENT OF PATHOLOGY AND GENOMIC MEDICINE Specific gravity, UA 1.021 1.001 - 1.030 [facility] DEPARTMENT OF PATHOLOGY AND GENOMIC MEDICINE pH, UA 5.0 5.0 - 9.0 [facility] DEPARTMENT OF PATHOLOGY AND GENOMIC MEDICINE Protein, UA Negative Negative [facility] DEPARTMENT OF PATHOLOGY AND GENOMIC MEDICINE Glucose, UA Negative Negative [facility] DEPARTMENT OF PATHOLOGY AND GENOMIC MEDICINE Ketones, UA Negative Negative [facility] DEPARTMENT OF PATHOLOGY AND GENOMIC MEDICINE Bilirubin, UA Negative Negative [facility] DEPARTMENT OF PATHOLOGY AND GENOMIC MEDICINE Blood, UA Small (A) Negative [facility] DEPARTMENT OF PATHOLOGY AND GENOMIC MEDICINE Nitrite, UA Negative Negative [facility] DEPARTMENT OF PATHOLOGY AND GENOMIC MEDICINE Urobilinogen, UA <2.0 <2.0 E.U./dL [facility] DEPARTMENT OF PATHOLOGY AND GENOMIC MEDICINE Leukocyte esterase, UA Moderate (A) Negative [facility] DEPARTMENT OF PATHOLOGY AND GENOMIC MEDICINE Epithelial cells, UA >20 /HPF [facility] DEPARTMENT OF PATHOLOGY AND GENOMIC MEDICINE WBC, UA 20 (H) 0 - 4 /HPF [facility] DEPARTMENT OF PATHOLOGY AND GENOMIC MEDICINE RBC, UA 2 0 - 2 /HPF [facility] DEPARTMENT OF PATHOLOGY AND GENOMIC MEDICINE Bacteria, UA Few None seen [facility] DEPARTMENT OF PATHOLOGY AND GENOMIC MEDICINE Yeast, UA None seen [facility] DEPARTMENT OF PATHOLOGY AND GENOMIC MEDICINE Yeast with pseudohyphae, UA None seen [facility] DEPARTMENT OF PATHOLOGY AND GENOMIC MEDICINE Specimen Urine Performing Organization Address City/[facility]/Zipcode Phone Number [facility] DEPARTMENT OF PATHOLOGY [id number] [place] [address]. [place] [address] AND [employer] MEDICINE Gram stain (09/29/2017 12:37 PM)Only the most recent of2 resultswithin the time period is included. Gram stain result No WBC's or organisms seen. [facility] DEPARTMENT OF PATHOLOGY Comment: AND GENOMIC MEDICINE Specimen Information Specimen Source: Urine Specimen Site: See UA Specimen Urine Performing Organization Address City/[facility]/Zipcode Phone Number [facility] DEPARTMENT OF PATHOLOGY AND [address] [place] [address] [facility] Urine culture (09/29/2017 12:37 PM)Only the most recent of2 resultswithin the time period is included. Urine culture isolate No growth after [address] [facility] DEPARTMENT OF PATHOLOGY Comment: AND GENOMIC MEDICINE Specimen Information Specimen Source: Urine Specimen Site: See UA Specimen Urine Performing Organization Address [facility] Phone Number [facility] DEPARTMENT OF PATHOLOGY AND [address] [place] [address] [facility] Partial thromboplastin time, activated (09/29/2017 4:30 AM)Only the most recent of3 resultswithin the time period is included. PTT 37.1 (H) 23.0 - 36.0 sec [facility] DEPARTMENT OF Comment: PATHOLOGY AND GENOMIC PTT therapeutic range for unfractionated heparin is MEDICINE 61.0-112.0 seconds which corresponds to Anti-Xa 0.3-0.7 U/ml. Specimen Blood Performing Organization Address [facility] Phone Number [facility] DEPARTMENT OF PATHOLOGY [id number] [place] [address] AND [employer] [facility] Prothrombin time with INR (09/29/2017 4:30 AM)Only the most recent of3 resultswithin the time period is included. Prothrombin time 16.8 (H) 12.0 - 15.0 sec [facility] DEPARTMENT OF PATHOLOGY AND GENOMIC MEDICINE INR 1.3 [facility] DEPARTMENT OF Comment: PATHOLOGY AND GENOMIC The International Normalized Ratio (INR) is a therapeutic MEDICINE monitoring tool for patients who are stable on oral anticoagulant therapy. An INR of 2.0-3.0 is suggested for deep vein thrombosis/pulmonary embolism. Specimen Blood Performing Organization Address [facility] Phone Number [facility] DEPARTMENT OF PATHOLOGY [address] [place] [address] AND [employer] MEDICINE Consult to Sepsis Response Team (09/28/2017 [...] trough 9.9 (L) 10.0 - 20.0 ug/mL [facility] DEPARTMENT OF Comment: PATHOLOGY AND GENOMIC Therapeutic Ranges: MEDICINE Peak30.0 - 40.0 ug/mL Gqzuyx89.0 - 20.0 ug/mL Specimen Blood Performing Organization Address [facility] Phone Number [facility] DEPARTMENT OF PATHOLOGY [address] [place] [address]. [place] [address] AND [employer] Hemoglobin & hematocrit (09/26/2017 7:45 PM)Only the most recent of2 resultswithin the time period is included. HGB 7.9 (L) 12.0 - 16.0 g/dL [facility] DEPARTMENT OF PATHOLOGY AND GENOMIC MEDICINE HCT 23.3 (L) 37.0 - 47.0 % [facility] DEPARTMENT OF PATHOLOGY AND GENOMIC MEDICINE Specimen Blood Performing Organization Address [facility] Phone Number [facility] DEPARTMENT OF PATHOLOGY [address] [place] [address]. [place] [address] AND [employer] [facility] Echocardiogram complete w contrast and 3D if [...] mean PCWP is 20-25mmHg Performing Organization Address [facility] Phone Number [facility] [address] [place] [address] Total iron binding capacity (09/26/2017 9:15 AM) Iron level 9 (L) 37 - 145 ug/dL [facility] DEPARTMENT OF PATHOLOGY AND GENOMIC MEDICINE Iron binding capacity 234 (L) 260 - 460 ug/dL [facility] DEPARTMENT OF PATHOLOGY AND GENOMIC MEDICINE % Saturation 3.8 (L) 15.0 - 38.0 % [facility] DEPARTMENT OF PATHOLOGY AND GENOMIC MEDICINE Specimen Plasma specimen Performing Organization Address [facility] Phone Number [facility] DEPARTMENT OF PATHOLOGY [address] [place] [address] AND [facility] Reticulocyte count (09/26/2017 9:15 AM) Retic %, auto 1.8 0.5 - 2.1 % [facility] DEPARTMENT OF PATHOLOGY AND GENOMIC MEDICINE Retic absolute, auto 0.0477 0.0210 - 0.1155 m/uL [facility] DEPARTMENT OF PATHOLOGY AND GENOMIC MEDICINE Specimen Blood Performing Organization Address [facility] Phone Number [facility] DEPARTMENT OF PATHOLOGY [id number] [place] [address] AND [facility] Thyroid stimulating hormone (09/26/2017 9:15 AM) TSH 0.42 0.27 - 4.20 uIU/mL [facility] DEPARTMENT OF PATHOLOGY AND GENOMIC MEDICINE Specimen Plasma specimen Performing Organization Address City/[facility] Phone Number [facility] DEPARTMENT OF PATHOLOGY [id number] [place] [address] AND [facility] Folate level (09/26/2017 9:15 AM) Folate 7.3 4.8 - 24.2 ng/mL [facility] DEPARTMENT OF PATHOLOGY AND GENOMIC MEDICINE Specimen Serum Performing Organization Address City/[facility] Phone Number [facility] DEPARTMENT OF PATHOLOGY AND [address] [place] [address] Ferritin level (09/26/2017 9:15 AM) Ferritin level 211 (H) 13 - 150 ng/mL [facility] DEPARTMENT OF PATHOLOGY AND GENOMIC MEDICINE Specimen Plasma specimen Performing Organization Address [facility] Phone Number [facility] DEPARTMENT OF PATHOLOGY AND [address] [place] [address] Vitamin B12 level (09/26/2017 9:15 AM) Vitamin B12 745 211 - 946 pg/mL [facility] DEPARTMENT OF PATHOLOGY Comment: AND [employer] MEDICINE Significant overlap exists between normal and deficiency states. However, most patients with deficiencies will have Serum B12 <200 pg/mL. Specimen Serum Performing Organization Address [facility] Phone Number [facility] DEPARTMENT OF PATHOLOGY AND [address] [place] [address] CK-MB (09/26/2017 8:00 AM)Only the most recent of3 resultswithin the time period is included. CK-MB 20.8 (H) 1.0 - 5.3 ng/mL [facility] DEPARTMENT OF PATHOLOGY AND GENOMIC MEDICINE Specimen Plasma specimen Performing Organization Address City/[facility] Phone Number [facility] DEPARTMENT OF PATHOLOGY [id number] [place] [address] AND [facility] Troponin (09/26/2017 8:00 AM)Only the most recent of3 resultswithin the time period is included. Troponin 0.93 (H) 0.00 - 0.30 ng/mL [facility] DEPARTMENT OF PATHOLOGY Comment: AND GENOMIC MEDICINE 0.11 - 1.49 ng/mlMay indicate increased risk of acute coronary syndrome. >=1.5 ng/mlConsistent with acute myocardial infarction. The diagnostic value of a single normal or non-diagnostic result is questionable.Serial samples at 2-6 hour intervals are required to rule out acute myocardial injury. Specimen Plasma specimen Performing Organization Address City/[facility]/Zipcode Phone Number [facility] DEPARTMENT OF PATHOLOGY [address] [place] [address] AND [employer] Creatine kinase, total (CPK) (09/26/2017 8:00 AM)Only the most recent of2 resultswithin the time period is included. Creatine kinase 1,047 (H) 26 - 192 U/L [facility] DEPARTMENT OF PATHOLOGY AND [employer] [facility] Specimen Plasma specimen Performing Organization Address [facility] Phone Number [facility] DEPARTMENT OF PATHOLOGY [address] [place] [address] AND [employer] Insert arterial line (09/26/2017 2:57 AM) Narrative [...] more than 12 months post-infection. Performed by [employer], [address] [place] [address] [email or web address], Eliseo Vazquez MD - Lab. Director Specimen Serum Performing Organization Address [facility] Phone Number [facility] [address] [place] [address] O2 saturation, venous (09/26/2017 2:10 AM) Hemoglobin, venous, syringe 8.1 (L) 12.0 - 16.0 g/dL [facility] DEPARTMENT OF PATHOLOGY AND GENOMIC MEDICINE O2 saturation, venous 80 (H) 40 - 70 % [facility] DEPARTMENT OF PATHOLOGY AND GENOMIC MEDICINE Specimen Blood Performing Organization Address [facility] Phone Number [facility] DEPARTMENT OF PATHOLOGY [address] [place] [address] AND [facility] Lactic acid level (09/26/2017 2:10 AM)Only the most recent of2 resultswithin the time period is included. Lactic acid 1.6 0.5 - 2.2 mmol/L [facility] DEPARTMENT OF PATHOLOGY AND GENOMIC MEDICINE Specimen Plasma specimen Performing Organization Address [facility] Phone Number [facility] DEPARTMENT OF PATHOLOGY [address] [place] [address]. [place] [address] AND [facility] Respiratory pathogen panel (09/26/2017 12:15 AM) Respiratory pathogen Negative for all pathogens tested: [facility] DEPARTMENT OF panel Negative for Adenovirus [...] Specimen Nares - Right Performing Organization Address [facility] Phone Number [facility] DEPARTMENT OF PATHOLOGY AND [address] [place] [address] Streptococcus pneumoniae urinary antigen (09/25/2017 10:35 PM) Strep pneumo urinary Ag Negative for Streptococcus pneumoniae antigen. [facility] DEPARTMENT OF Comment: PATHOLOGY AND GENOMIC Specimen Information MEDICINE Specimen Source: Urine Specimen Site: [place] Specimen Urine - [place] Performing Organization Address [facility] Phone Number [facility] DEPARTMENT OF PATHOLOGY AND [address] [place] [address] Legionella urinary antigen (09/25/2017 10:35 PM) Legionella urinary Negative for Legionella serogroup [address] [facility] DEPARTMENT OF antigen Comment: PATHOLOGY AND GENOMIC Specimen Information MEDICINE Specimen Source: Urine Specimen Site: [place] Specimen Urine - [place] Performing Organization Address [facility] Phone Number [facility] DEPARTMENT OF PATHOLOGY AND [address] [place] [address] ECG 12 lead (09/25/2017 9:40 PM) Ventricular rate 97 [facility] Atrial rate [address] [facility] MUSE NE interval [address] [facility] MUSE QRSD interval 70 [facility] QT interval [address] [facility] QTC interval [address] [facility] MUSE P axis 1 39 [facility] QRS axis [address] [facility] MUSE T wave axis [address] [facility] MUSE EKG impression Normal sinus rhythm-Nonspecific ST abnormality-Abnormal ECG-In automated comparison with ECG of 23-SEP-2017 11:52,-Vent. rate has increased BY 49 [id number] change in ST segment in Anterior bonifacio [facility] MUSE ds-Nonspecific T wave abnormality no longer evident in Anterior leads-QT has lengthened- Performing Organization Address [facility] Phone Number [facility] MUSE [address] [place] [address] Legionella culture (09/25/2017 9:30 PM) Legionella culture No Legionella isolated. [facility] DEPARTMENT OF isolate Comment: PATHOLOGY AND GENOMIC Specimen Information MEDICINE Specimen Source: Sputum Specimen Site: Expectorated Specimen Sputum - Expectorated Performing Organization Address [facility] Phone Number [facility] DEPARTMENT OF PATHOLOGY AND [address] [place] [address] [facility] Blood culture, aerobic & anaerobic (09/25/2017 8:35 PM)Only the most recent of2 resultswithin the time period is included. Blood culture isolate No growth after [address] of incubation[address] [facility] DEPARTMENT OF Comment: PATHOLOGY AND GENOMIC Specimen Information MEDICINE Specimen Source: Blood Specimen Site: Line, IJ (intrajugular) Specimen Blood - Line, IJ (intrajugular) Performing Organization Address [facility] Phone Number [facility] DEPARTMENT OF PATHOLOGY AND [address] [place] [address] [facility] B natriuretic peptide (09/25/2017 8:18 PM) BNP 3,623 (H) 0 - 100 pg/mL [facility] DEPARTMENT OF PATHOLOGY AND GENOMIC MEDICINE Specimen Blood Performing Organization Address [facility] Phone Number [facility] DEPARTMENT OF PATHOLOGY [address] [place] [address] AND [employer] MEDICINE after 07/17/2017 Insurance Payer Benefit Plan / Group Subscriber ID Type Phone Address BCBS BCBS CHOICE PPO/[employer]PL PPO xxxxxxxxxxxx PPO [phone] [place] [address]
[2018-07-18] MEDS ORDERED: HYDROCODONE/APAP 7.5/325 MG TAB ONE (10:09)
--- NOTE | 2018-07-18 11:07 | RAD REPORT ---
EXAM DESCRIPTION: RAD - Wrist Left 3 View - 07/18/2018 10:49 am CLINICAL HISTORY: Pain;Deformity Pain COMPARISON: No comparisons FINDINGS: Intraarticular fracture of the distal radial metaphysis is seen with mild dorsal angulatio n. Ulnar styloid avulsion fracture also seen. Moderate soft tissue swelling is noted.
[2018-07-18] MEDS ORDERED: BUPIVACAINE 0.5% PF 10 ML VIAL ONE (11:16)
[2018-07-18] MEDS ORDERED: LIDOCAINE 1% MPF 5 ML VIAL ONE (11:16)
[2018-07-18] MEDS ORDERED: HYDROMORPHONE HCL 0.5 MG/0.5 ML INJ ONE (11:44)
[2018-07-18] MEDS ORDERED: NA CHLORIDE 0.9% 1,000 ML ONE (11:44)
[2018-07-18] MEDS ORDERED: PROPOFOL 200 MG/20 ML VIAL IV ONE (12:21)
[2018-07-18] MEDS ORDERED: FENTANYL CITR 100 MCG/2 ML ONE ×2 (12:43→13:56)
--- NOTE | 2018-07-18 13:18 | ER ---
Nurse's Notes [facility] Name: Pratibha Jennings Age: 52 yrs Sex: Female : 1965 Arrival Date: 07/18/2018 Time: 09:54 Bed 3 Private MD: Von Chaves C Diagnosis: Left Distal Radius Fracture Presentation: 07/18 10:09 Presenting complaint: Patient states: " I tripped and fell last night and hurt my ph wrist." Swelling, bruising, and obvious deformity noted to L wrist, pt denies other injury or LOC. Transition of care: patient was not received from another setting of care. Onset of symptoms was July 18, 2018. Risk Assessment: Do you want to hurt yourself or someone else? Patient reports no desire to harm self or others. Initial Sepsis Screen: Does the patient meet any 2 criteria? No. Patient's initial sepsis screen is negative. Does the patient have a suspected source of infection? No. Patient's initial sepsis screen is negative. Care prior to arrival: None. 10:09 Method Of Arrival: Ambulatory ph 10:09 Acuity: NUSRAT 4 ph 12:15 Acuity: NUSRAT 3 hb Triage Assessment: 10:13 Injury Description: Deformity. hj ANIMAL STICKER: 10:11 LMP N/A - Post-menopause ph Historical: - Allergies: 10:11 Iodine; ph - Home Meds: 10:11 Ambien 5 mg Oral tab 1 tab once daily [Active]; diazepam 5 mg Oral tab 1 tab daily ph [Active]; gabapentin 600 mg Oral tab 1 tab daily [Active]; lidocaine patch [Active]; Lipitor 40 mg Oral tab 1 tab once daily [Active]; metoprolol tartrate 25 mg Oral tab 1 tab once daily [Active]; morphine 15 mg Oral tab 1 tab every 4 hours [Active]; Neurontin 600 mg Oral tab 1 tab daily [Active]; oxycodone-acetaminophen 10-650 mg Oral tab 1 tab every 6 hours [Active]; tizanidine 4 mg Oral cap 1 cap [Active]; Valium 5 mg Oral tab 1 tab daily [Active]; Zanaflex 4 mg Oral tab 1 tab every 8 hours [Active]; Zofran Oral [Active]; - PMHx: 10:11 Back pain; Chronic pain; Degenerative disc disease; Hyperlipidemia; Hypertension; ph - PSHx: 10:11 back surgeries; heath knee; ph - Immunization history:: Adult Immunizations unknown. - Social history:: Smoking status: Patient uses tobacco products, smokes one pack cigarettes per day. - Ebola Screening: : No symptoms or risks identified at this time. Screenin:12 Abuse screen: Denies threats or abuse. Denies injuries from another. Nutritional hj screening: No deficits noted. Tuberculosis screening: No symptoms or risk factors identified. Fall Risk Fall in past 12 months (25 points). Assessment: 10:10 General: Appears in no apparent distress. uncomfortable, Behavior is calm, cooperative, hj appropriate for age. Pain: Complains of pain in dorsal aspect of left wrist and palmar aspect of left wrist. Neuro: Level of Consciousness is awake, alert, obeys commands, Oriented to person, place, time, situation, Appropriate for age. Cardiovascular: Capillary refill < 3 seconds Patient's skin is warm and dry. Respiratory: Airway is patent Respiratory effort is even, unlabored, Respiratory pattern is regular, symmetrical. GI: No signs and/or symptoms were reported involving the gastrointestinal system. : No signs and/or symptoms were reported regarding the genitourinary system. EENT: No signs and/or symptoms were reported regarding the EENT system. Derm: No signs and/or symptoms reported regarding the dermatologic system. Musculoskeletal: Swelling present in L wrist Reports pain in dorsal aspect of left wrist and palmar aspect of left wrist. 10:40 Reassessment: xray was taken. hj 11:25 Reassessment: Patient and/or family updated on plan of care and expected duration. Pain hj level reassessed. Patient is alert, oriented x 3, equal unlabored respirations, skin warm/dry/pink. complaints of pain 10/10; provider aware;. 12:36 Reassessment: Dr. Carmichael at bedside for conscious sedation. 13:00 Reassessment: xray at bedside for post reduction imaging, pt family remains at bedside, sg awaiting radiology results, awaiting dispo at this time. will continue to monitor. 13:00 Reassessment: Patient appears in no apparent distress at this time. sg Vital Signs: 10:11 BP 124 / 91; Pulse 73; Resp 18; Temp 97.3; Pulse Ox 100% on R/A; Weight 58.06 kg; ph Height 5 ft. 5 in. (165.10 cm); Pain 8/10; 10:26 BP 114 / 73; Pulse 75; Resp 18; Pulse Ox 100% on R/A; hj 11:26 BP 195 / 98; Pulse 68; Resp 18; Pulse Ox 95% on R/A; hj 12:30 BP 135 / 73; Pulse 75; Resp 15; Pulse Ox 100% on R/A; hb 12:40 BP 135 / 73; Pulse 70; Resp 16; Pulse Ox 100% on 2 lpm NC; Pain 10/10; sg 12:53 BP 147 / 74; Pulse 72 MON; Resp 10 S; Pulse Ox 100% on R/A; sg 12:57 BP 114 / 74; Pulse 69; Resp 13 S; Pulse Ox 100% on 2 lpm NC; sg 13:01 BP 119 / 71; Pulse 67; Resp 16 S; Pulse Ox 100% on 2 lpm NC; sg 13:06 BP 122 / 67; Pulse 66 MON; Resp 14 S; Pulse Ox 100% on 2 lpm NC; Pain 3/10; sg 10:11 Body Mass Index 21.30 (58.06 kg, 165.10 cm) ph ED Course: 09:54 Patient arrived in ED. sb2 09:54 Von Chaves MD is Private Physician. sb2 10:00 Baldemar Norman PA is PHCP. cp 10:00 Rigoberto Carmichael MD is Attending Physician. cp 10:03 Nestor Quevedo, ANGELA is Primary Nurse. hj 10:10 Triage completed. ph 10:11 Arm band placed on right wrist. hj 10:11 Arm band placed on Patient placed in an exam room. Affected limb iced. ph 10:13 Patient has correct armband on for positive identification. Bed in low position. Call hj light in reach. Side rails up X 1. Adult w/ patient. 10:48 X-ray completed. Portable x-ray completed in exam room. Patient tolerated procedure ml well. 10:49 XRAY Wrist LEFT 3 view In Process Unspecified. EDMS 11:37 Inserted saline lock: 22 gauge in right antecubital area, using aseptic technique. IV ag inserted by EMS student Geno Gonzalez Supervised by Dipika. 12:22 Primary Nurse role handed off by Nestor Quevedo, RN sg 12:22 Silvino King, ANGELA is Primary Nurse. sg 12:30 Consent for conscious sedation explained by physician, signed by patient. sg 12:40 a time out was performed. sg 12:40 internet marketing strategist on. Pulse ox on. NIBP on. sg 13:06 Assist provider with fracture care of left wrist Fracture is closed. Obvious deformity sg is noted. Circulation, motor and sensation is intact. Set up for procedure. Performed by Rigoberto Carmichael MD Reduced with physical manipulation. Immobilized with plaster cast. Post immobilization, circulation, motor and sensation remain intact. Patient tolerated well. 13:07 XRAY Wrist LEFT 2 view In Process Unspecified. EDMS 13:17 Mitchel Guido MD is Referral Physician. cp 13:20 Sarmad wrap to left elbow and left wrist Sling applied to left arm. sg Administered Medications: 10:03 Drug: Hydrocodone-Acetaminophen (7.5 mg-325 mg) 1 tabs Route: PO; hj 10:26 Follow up: Response: Pain is decreased hj 11:35 Drug: NS 0.9% 1000 ml Route: IV; Rate: 1 bolus; Site: right antecubital; hj 11:37 Drug: Dilaudid 0.5 mg Route: IVP; Site: right antecubital; hj 11:41 Drug: Lidocaine-Epinephrine -1%: (1:100,000) 5 ml Volume: 20 ml; Route: Infiltration; hj 11:41 Drug: Marcaine (0.5 %) 5 ml Volume: 10 ml; Route: Infiltration; hj 12:48 Drug: fentaNYL (PF) 50 mcg Route: IVP; Site: right antecubital; ss 13:15 Follow up: Response: Pain is decreased ss 12:50 Drug: DipriVAN 0.5 mg/kg {Note: for conscious sedation closed reduction.} Route: IVP; sg Site: right antecubital; 14:15 Drug: fentaNYL (PF) 50 mcg Route: IVP; Site: right antecubital; ss 14:25 Follow up: Response: Pain is decreased Outcome: 13:18 Discharge ordered by MD. cp 14:26 Patient left the ED. ss Signatures: Dispatcher [employer] EDMS Silvino King RN RN sg Lopez, Melissa ml Smirch, Shelby, RN RN Dipika Marrero Patricia, RN RN Nestor Quevedo RN RN Baldemar Norman PA PA cp Baxter, Heather, RN RN Izzy Mendoza sb2 Corrections: (The following items were deleted from the chart) 11:27 11:26 BP 195 / 98; Pulse 49bpm; Resp 18bpm; Pulse Ox 95% RA; hj hj 14:24 14:15 fentaNYL (PF) 50 mcg IVP in left antecubital ss ss 14:24 12:48 fentaNYL (PF) 50 mcg IVP in left antecubital ss ss
--- NOTE | 2018-07-18 13:18 | EDPHYS ---
Physician Documentation [facility] Name: Pratibha Jennings Age: 52 yrs Sex: Female : 1965 Arrival Date: 07/18/2018 Time: 09:54 Bed 3 Private MD: Von Chaves C ED Physician Rigoberto Carmichael HPI: 07/18 10:12 This 52 yrs old Female presents to ER via Ambulatory with complaints of Wrist cp Injury. 10:12 The patient or guardian reports decreased range of motion, deformity, pain, swelling, cp tenderness. The complaints affect the left wrist diffusely. Context: resulted from a fall. Onset: The symptoms/episode began/occurred last night. Associated signs and symptoms: Pertinent negatives: cyanosis distally, numbness distally, tingling distally. 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 - Post-menopause ph Historical: - Allergies: 10:11 Iodine; ph - Home Meds: 10:11 Ambien 5 mg Oral tab 1 tab once daily [Active]; diazepam 5 mg Oral tab 1 tab daily ph [Active]; gabapentin 600 mg Oral tab 1 tab daily [Active]; lidocaine patch [Active]; Lipitor 40 mg Oral tab 1 tab once daily [Active]; metoprolol tartrate 25 mg Oral tab 1 tab once daily [Active]; morphine 15 mg Oral tab 1 tab every 4 hours [Active]; Neurontin 600 mg Oral tab 1 tab daily [Active]; oxycodone-acetaminophen 10-650 mg Oral tab 1 tab every 6 hours [Active]; tizanidine 4 mg Oral cap 1 cap [Active]; Valium 5 mg Oral tab 1 tab daily [Active]; Zanaflex 4 mg Oral tab 1 tab every 8 hours [Active]; Zofran Oral [Active]; - PMHx: 10:11 Back pain; Chronic pain; Degenerative disc disease; Hyperlipidemia; Hypertension; ph - PSHx: 10:11 back surgeries; heath knee; ph - Immunization history:: Adult Immunizations unknown. - Social history:: Smoking status: Patient uses tobacco products, smokes one pack cigarettes per day. - Ebola Screening: : No symptoms or risks identified at this time. ROS: 10:13 Eyes: Negative for injury, pain, redness, and discharge. cp 10:13 Constitutional: Negative for body aches, chills, fever, poor PO intake. 10:13 Cardiovascular: Negative for chest pain, edema, palpitations. 10:13 Respiratory: Negative for cough, shortness of breath, wheezing. 10:13 Abdomen/GI: Negative for abdominal pain, nausea, vomiting, and diarrhea, constipation. 10:13 MS/extremity: Positive for injury or acute deformity, decreased range of motion, ecchymosis, pain, swelling, tenderness, of the left wrist. 10:13 Neuro: Negative for numbness, weakness. 10:13 All other systems are negative. Exam: 10:18 Constitutional: The patient appears in no acute distress, alert, awake, cp non-diaphoretic, non-toxic, well developed, well nourished, uncomfortable. 10:18 Head/Face: Normocephalic, atraumatic. cp 10:18 Eyes: Periorbital structures: appear normal, Conjunctiva: normal, no exudate, no injection, Lids and lashes: appear normal, bilaterally. 10:18 ENT: External ear(s): are unremarkable, Nose: is normal, Mouth: Lips: moist, Oral mucosa: moist, Posterior pharynx: is normal, airway is patent. 10:18 Neck: C-spine: vertebral tenderness, is not appreciated, crepitus, is not appreciated, ROM/movement: is normal, is supple, without pain, no range of motions limitations, no nuchal rigidity. 10:18 Chest/axilla: Inspection: normal, Palpation: is normal, no crepitus, no tenderness. 10:18 Cardiovascular: Rate: normal, Rhythm: regular, Pulses: Pulses are 2+ in right radial artery and left radial artery. 10:18 Respiratory: the patient does not display signs of respiratory distress, Respirations: normal, no use of accessory muscles, no retractions, no splinting, no tachypnea, labored breathing, is not present, Breath sounds: are clear throughout, no decreased breath sounds, no stridor, no wheezing. 10:18 Abdomen/GI: Inspection: abdomen appears normal, Palpation: abdomen is soft and non-tender, in all quadrants, rebound tenderness, is not appreciated, involuntary guarding, is not appreciated. 10:18 Back: pain, is absent, ROM is normal. 10:18 Musculoskeletal/extremity: Extremities: grossly normal except: noted in the left distal forearm: decreased ROM, deformity, ecchymosis, pain, swelling, tenderness, Perfusion: the extremity is with brisk capillary refill, Severe pain noted. 10:18 Skin: cellulitis, is not appreciated, no rash present. 10:18 Neuro: Orientation: to person, place \T\ time. Mentation: lucid, able to follow commands. Vital Signs: 10:11 BP 124 / 91; Pulse 73; Resp 18; Temp 97.3; Pulse Ox 100% on R/A; Weight 58.06 kg; ph Height 5 ft. 5 in. (165.10 cm); Pain 8/10; 10:26 BP 114 / 73; Pulse 75; Resp 18; Pulse Ox 100% on R/A; hj 11:26 BP 195 / 98; Pulse 68; Resp 18; Pulse Ox 95% on R/A; hj 12:30 BP 135 / 73; Pulse 75; Resp 15; Pulse Ox 100% on R/A; hb 12:40 BP 135 / 73; Pulse 70; Resp 16; Pulse Ox 100% on 2 lpm NC; Pain 10/10; sg 12:53 BP 147 / 74; Pulse 72 MON; Resp 10 S; Pulse Ox 100% on R/A; sg 12:57 BP 114 / 74; Pulse 69; Resp 13 S; Pulse Ox 100% on 2 lpm NC; sg 13:01 BP 119 / 71; Pulse 67; Resp 16 S; Pulse Ox 100% on 2 lpm NC; sg 13:06 BP 122 / 67; Pulse 66 MON; Resp 14 S; Pulse Ox 100% on 2 lpm NC; Pain 3/10; sg 10:11 Body Mass Index 21.30 (58.06 kg, 165.10 cm) ph Procedures: 13:22 Reduction: of the left wrist, using traction, manipulation, Immobilized with sugar tong rn plaster splint. Patient tolerated well. Post reduction film - reveals improved alignment. Moderate sedation: Pre-procedure assessment: the patient has been NPO 4 hour(s) prior to arrival, ASA physical classification: II - mild/mod systemic disease that does not interfere with daily routines, Airway assessment: able to hyperextend neck, able to maintain airway, can open mouth without difficulty, Monitoring during procedure: monitoring specialist, continuous pulse oximetry, nurse at bedside at all times, Medications employed: propofol, Post-procedure assessment: the patient is not sedated, Respiratory status: even and unlabored, a reversal agent was not used. MDM: 10:00 Patient medically screened. cp 11:00 Differential diagnosis: dislocation, open fracture, closed fracture, contusion. cp 13:15 Data reviewed: vital signs, nurses notes, radiologic studies, plain films. cp 13:15 Test interpretation: by ED physician or midlevel provider: plain radiologic studies. cp Counseling: I had a detailed discussion with the patient and/or guardian regarding: the historical points, exam findings, and any diagnostic results supporting the discharge/admit diagnosis, radiology results, the need for outpatient follow up, for definitive care, a orthopedic surgeon, to return to the emergency department if symptoms worsen or persist or if there are any questions or concerns that arise at home. Response to treatment: the patient's symptoms have markedly improved after treatment. 07/18 10:03 Order name: XRAY Wrist LEFT 3 view; Complete Time: 11:08 cp 07/18 13:01 Order name: XRAY Wrist LEFT 2 view cp 07/18 11:09 Order name: Misc. Order: finger traps; Complete Time: 11:17 cp 07/18 11:35 Order name: IV; Complete Time: 11:37 cp Administered Medications: 10:03 Drug: Hydrocodone-Acetaminophen (7.5 mg-325 mg) 1 tabs Route: PO; hj 10:26 Follow up: Response: Pain is decreased hj 11:35 Drug: NS 0.9% 1000 ml Route: IV; Rate: 1 bolus; Site: right antecubital; hj 11:37 Drug: Dilaudid 0.5 mg Route: IVP; Site: right antecubital; hj 11:41 Drug: Lidocaine-Epinephrine -1%: (1:100,000) 5 ml Volume: 20 ml; Route: Infiltration; hj 11:41 Drug: Marcaine (0.5 %) 5 ml Volume: 10 ml; Route: Infiltration; hj 12:48 Drug: fentaNYL (PF) 50 mcg Route: IVP; Site: right antecubital; ss 13:15 Follow up: Response: Pain is decreased ss 12:50 Drug: DipriVAN 0.5 mg/kg {Note: for conscious sedation closed reduction.} Route: IVP; sg Site: right antecubital; 14:15 Drug: fentaNYL (PF) 50 mcg Route: IVP; Site: right antecubital; ss 14:25 Follow up: Response: Pain is decreased ss Disposition: 16:23 Co-signature as Attending Physician, Rigoberto Carmichael MD. rn Disposition: 07/18/18 13:18 Discharged to Home. Impression: Left Distal Radius Fracture. - Condition is Stable. - Discharge Instructions: Wrist Fracture Treated With Immobilization. - Prescriptions for Ibuprofen 800 mg Oral Tablet - take 1 tablet by ORAL route every 8 hours As needed take with food; 30 tablet. Tylenol- Codeine #3 300-30 mg Oral Tablet - take 2 tablets by ORAL route every 6 hours As needed; 15 tablet. - Medication Reconciliation Form, Thank You Letter, Antibiotic Education, Prescription Opioid Use form. - Follow up: Mitchel Guido MD; When: 2 - 3 days; Reason: distal radius fracture. - Problem is new. - Symptoms have improved. Signatures: Dispatcher [employer] EDSilvino Tyler RN RN sg Nieto, Roman, MD MD rn Smirch, Shelby, RN RN ss Hall, Patricia, RN RN Nestor Quevedo RN RN Baldemar Norman PA PA cp Corrections: (The following items were deleted from the chart) 14:26 13:18 07/18/2018 13:18 Discharged to Home. Impression: Left Distal Radius Fracture. ss Condition is Stable. Forms are Medication Reconciliation Form, Thank You Letter, Antibiotic Education, Prescription Opioid Use. Follow up: Mitchel Guido; When: 2 - 3 days; Reason: distal radius fracture. Problem is new. Symptoms have improved. cp
--- NOTE | 2018-07-18 13:25 | RAD REPORT ---
EXAM DESCRIPTION: RAD - Wrist Left 2 View - 07/18/2018 1:10 pm CLINICAL HISTORY: Post reduction imaging, distal radius and ulna fracture COMPARISON: Left wrist July 18 TECHNIQUE: Frontal and lateral post reduction images obtained. FINDINGS: Cast material is in place limiting detail. The impacted and angulated distal radius fractu re has been reduced to near anatomic alignment and position. There remains a slight dorsal angulation . Ulna styloid fracture is again noted. IMPRESSION: Distal radius fracture reduced to near anatomic alignment and position.
== END 2018-07-18 14:26 | disposition home or self-care (01) ==
LOC: ER 09:52
PROC: 0PSJXZZ Reposition Left Radius, External Approach (ICD-10-PCS; principal; 2018-07-18)
DX: S52.502A Unspecified fracture of the lower end of left radius, initial encounter for closed fracture (principal); W19.XXXA Unspecified fall, initial encounter; Y93.9 Activity, unspecified; Y92.9 Unspecified place or not applicable; Z91.048 Other nonmedicinal substance allergy status; I10 Essential (primary) hypertension; E78.5 Hyperlipidemia, unspecified; F17.210 Nicotine dependence, cigarettes, uncomplicated
CPT/HCPCS: 96374; 96375; 99285; J1170; J3010; J7030

== ENCOUNTER 2018-08-06 09:34 | Emergency (ER) | payer BC ==
--- OUTSIDE RECORDS SUMMARY | 2018-08-06 09:36 | XMS REPORT | Clinical Summary ---
:1965 Author Organization [facility] Address [address] [place] [address] Care Team Providers Name Role Phone Provider, [...] Conte Elevated troponin (Primary Dx); 10/06/2017 Vania Gardnuo MD Septic shock; Ravindra Shah Acute respiratory failure with hypoxia; MD Teresa Hyponatremia after 08/05/2017 Immunizations Name Dates Previously Given Next Due [...] Taken Blood Pressure 124/76 01/19/2018 11:58 AM LINE TESTER Pulse 62 01/19/2018 11:58 AM LINE TESTER Temperature 36.3 C (97.4 F) 01/19/2018 11:58 AM LINE TESTER Respiratory Rate 20 10/06/2017 3:01 PM LINE TESTER Oxygen Saturation 100% 01/19/2018 11:58 AM LINE TESTER Inhaled Oxygen Concentration - - Weight 62.1 kg (137 lb) 01/19/2018 11:58 AM LINE TESTER Height 163.8 cm (5' 4.5") 01/19/2018 11:58 AM LINE TESTER Body Mass Index 23.15 01/19/2018 11:58 AM LINE TESTER Plan of Treatment Health Maintenance Due Date Last Done Comments CERVICAL CANCER SCREENING 1985 BREAST CANCER SCREENING 2014 SHINGRIX VACCINE (#1) 2014 INFLUENZA VACCINE 06/28/2018 10/06/2017 COLON CANCER SCREENING 10/06/2027 10/06/2017, 09/26/2017 Implants Implanted Type Area Cloth Covered Helmet Puller Device Expiration Date Model / Serial Identifier / Lot Stimulator Stimulator MEDTRONIC / / Procedures Procedure Name Priority Date/Time Associated Comments Diagnosis CT CHEST WO CONTRAST Routine 01/19/2018 9:26 Cavitary lesion of Results for this AM LINE TESTER lung procedure are in Hemoptysis the results section. XR CHEST 2 VW Routine 01/04/2018 12:09 Pneumonia, Results for this PM LINE TESTER organism procedure are in unspecified(486) the results Postoperative section. septicemia ESTIMATED GFR Routine 10/06/2017 12:30 Results for this PM LINE TESTER procedure are in the results section. MAGNESIUM LEVEL Routine 10/06/2017 12:30 Results for this PM LINE TESTER procedure are in the results section. COMPREHENSIVE METABOLIC Routine 10/06/2017 12:30 Results for this PANEL PM LINE TESTER procedure are in the results section. HC COMPLETE BLD COUNT Routine 10/06/2017 12:30 Results for this W/AUTO DIFF PM LINE TESTER procedure are in the results section. TRANSFUSE RED BLOOD Routine 10/06/2017 7:41 CELLS AM LINE TESTER OCCULT BLOOD, STOOL Routine 10/06/2017 7:30 Results for this AM LINE TESTER procedure are in the results section. TRANSFUSE RED BLOOD Routine 10/06/2017 3:58 CELLS AM LINE TESTER PREPARE RBC Timed 10/05/2017 6:35 Results for this PM LINE TESTER procedure are in the results section. TYPE AND SCREEN Timed 10/05/2017 6:35 Results for this PM LINE TESTER procedure are in the results section. XR CHEST 1 VW PORTABLE Routine 10/05/2017 6:48 Results for this AM LINE TESTER procedure are in the results section. ESTIMATED GFR Routine 10/05/2017 6:10 Results for this AM LINE TESTER procedure are in the results section. HC COMPLETE BLD COUNT Routine 10/05/2017 6:10 Results for this W/AUTO DIFF AM LINE TESTER procedure are in the results section. COMPREHENSIVE METABOLIC Routine 10/05/2017 6:10 Results for this PANEL AM LINE TESTER procedure are in the results section. ESTIMATED GFR Routine 10/04/2017 8:40 Results for this PM LINE TESTER procedure are in the results section. MAGNESIUM LEVEL Routine 10/04/2017 8:40 Results for this PM LINE TESTER procedure are in the results section. HC COMPLETE BLD COUNT Routine 10/04/2017 8:40 Results for this W/AUTO DIFF PM LINE TESTER procedure are in the results section. BASIC METABOLIC PANEL Routine 10/04/2017 8:40 Results for this PM LINE TESTER procedure are in the results section. HC US GUIDED VASCULAR Routine 10/04/2017 5:45 Results for this ACCESS PM LINE TESTER procedure are in the results section. HC CVL PICC INSERT 5 Routine 10/04/2017 5:45 Results for this YRS OR > PM LINE TESTER procedure are in the results section. POC GLUCOSE Routine 10/04/2017 7:26 Results for this AM LINE TESTER procedure are in the results section. POC GLUCOSE Routine 10/03/2017 9:02 Results for this PM LINE TESTER procedure are in the results section. POC GLUCOSE Routine 10/03/2017 4:20 Results for this PM LINE TESTER procedure are in the results section. POC GLUCOSE Routine 10/03/2017 11:25 Results for this AM LINE TESTER procedure are in the results section. POC GLUCOSE Routine 10/03/2017 7:42 Results for this AM LINE TESTER procedure are in the results section. ESTIMATED GFR Routine 10/03/2017 6:30 Results for this AM LINE TESTER procedure are in the results section. BASIC METABOLIC PANEL Routine 10/03/2017 6:30 Results for this AM LINE TESTER procedure are in the results section. HC COMPLETE BLD COUNT Routine 10/03/2017 6:30 Results for this W/AUTO DIFF AM LINE TESTER procedure are in the results section. ESTIMATED GFR Routine 10/03/2017 6:30 Results for this AM LINE TESTER procedure are in the results section. CREATININE LEVEL Routine 10/03/2017 6:30 Results for this AM LINE TESTER procedure are in the results section. POC GLUCOSE Routine 10/02/2017 8:43 Results for this PM LINE TESTER procedure are in the results section. POC GLUCOSE Routine 10/02/2017 5:20 Results for this PM LINE TESTER procedure are in the results section. ESTIMATED GFR Routine 10/02/2017 1:35 Results for this PM LINE TESTER procedure are in the results section. IONIZED CALCIUM Routine 10/02/2017 1:35 Results for this PM LINE TESTER procedure are in the results section. MAGNESIUM LEVEL Routine 10/02/2017 1:35 Results for this PM LINE TESTER procedure are in the results section. BASIC METABOLIC PANEL Routine 10/02/2017 1:35 Results for this PM LINE TESTER procedure are in the results section. POC GLUCOSE Routine 10/02/2017 12:25 Results for this PM LINE TESTER procedure are in the results section. ARTERIAL BLOOD GAS STAT 10/02/2017 10:50 Results for this AM LINE TESTER procedure are in the results section. POC GLUCOSE Routine 10/02/2017 8:31 Results for this AM LINE TESTER procedure are in the results section. XR CHEST 1 VW PORTABLE Routine 10/02/2017 8:18 Results for this AM LINE TESTER procedure are in the results section. CONSULT TO OSTOMY CARE Routine 10/02/2017 7:08 NURSE AM LINE TESTER POC GLUCOSE Routine 10/02/2017 5:09 Results for this AM LINE TESTER procedure are in the results section. IONIZED CALCIUM, Routine 10/02/2017 4:08 Results for this ARTERIAL AM LINE TESTER procedure are in the results section. ARTERIAL BLOOD GAS Routine 10/02/2017 4:08 Results for this AM LINE TESTER procedure are in the results section. SMEAR REVIEW Routine 10/02/2017 4:00 Results for this AM LINE TESTER procedure are in the results section. CBC WITH PLATELET AND Routine 10/02/2017 4:00 Results for this DIFFERENTIAL AM LINE TESTER procedure are in the results section. ESTIMATED GFR Routine 10/02/2017 4:00 Results for this AM LINE TESTER procedure are in the results section. PHOSPHORUS LEVEL Routine 10/02/2017 4:00 Results for this AM LINE TESTER procedure are in the results section. MAGNESIUM LEVEL Routine 10/02/2017 4:00 Results for this AM LINE TESTER procedure are in the results section. BASIC METABOLIC PANEL Routine 10/02/2017 4:00 Results for this AM LINE TESTER procedure are in the results section. POC [...] are in SPECTRAL COLOR DOPPLER the results (61189) section. TRANSFUSE RED BLOOD Routine 09/26/2017 2:14 [...] CDT procedure are in the results section. FL INSERT Routine 09/26/2017 2:57 Elevated troponin Results [...] procedure are in the results section. after 08/05/[address] Chest Wo Contrast (01/19/2018 9:26 [...] intact. A spinal stimulator is partially imaged. [facility]-[id number] Procedure Note Hm Interface, Radiology Results Incoming - 01/19/2018 9:58 AM LINE TESTER EXAMINATION: CT CHEST WO CONTRAST CLINICAL HISTORY: [...] intact. A spinal stimulator is partially imaged. [facility]-[id number] Performing Organization Address City/State/Zipcode Phone Number [facility] [address] [place] [address] XR Chest 2 Vw (01/04/2018 12:09 PM) [...] The remainder of the examination is unremarkable. [facility]-[id number] Procedure Note Interface, Radiology Results Incoming - 01/04/2018 12:19 PM LINE TESTER EXAMINATION: XR CHEST 2 VW CLINICAL HISTORY: J18.9 Pneumonia unspecified organism, T81.4XXA Infection following a procedure initial encounter, j18.9 COMPARISON: Chest x-ray 10/05/2017 IMPRESSION: Frontal and lateral views reveal a stable cardiomediastinal silhouette. Thoracic spinal cord simulator remains in place. Improved aeration has occurred throughout the lungs though coarse interstitial markings persist. Pleural margins are sharp. The remainder of the examination is unremarkable. [facility]-[id number] Performing Organization Address City/State/Zipcode Phone Number [facility] [address] [place] [address] Estimated GFR (10/06/2017 12:30 PM)Only the most recent of17 resultswithin the time period is included. GFR Non Af Amer 88 mL/min/1.73 m2 [facility] DEPARTMENT OF PATHOLOGY AND GENOMIC MEDICINE GFR Af Amer >90 mL/min/1.73 m2 [facility] DEPARTMENT OF Comment: PATHOLOGY AND GENOMIC Chronic [...] specimen Performing Organization Address City/State/Zipcode Phone Number [facility] DEPARTMENT OF PATHOLOGY [address] [place] [address] AND [employer] [facility] MEDICINE CBC with platelet and differential (10/06/2017 12:30 PM)Only the most recent of11 resultswithin the time period is included. WBC 16.2 (H) 4.5 - 11.0 k/uL [facility] DEPARTMENT OF PATHOLOGY AND GENOMIC MEDICINE RBC 3.73 (L) 4.20 - 5.50 m/uL [facility] DEPARTMENT OF PATHOLOGY AND GENOMIC MEDICINE HGB 10.4 (L) 12.0 - 16.0 g/dL [facility] DEPARTMENT OF PATHOLOGY AND GENOMIC MEDICINE HCT 31.4 (L) 37.0 - 47.0 % [facility] DEPARTMENT OF PATHOLOGY AND GENOMIC MEDICINE MCV 84.2 82.0 - 100.0 fL [facility] DEPARTMENT OF PATHOLOGY AND GENOMIC MEDICINE MCH 27.9 27.0 - 34.0 pg [facility] DEPARTMENT OF PATHOLOGY AND GENOMIC MEDICINE MCHC 33.1 31.0 - 37.0 g/dL [facility] DEPARTMENT OF PATHOLOGY AND GENOMIC MEDICINE RDW - SD 54.6 37.0 - 55.0 fL [facility] DEPARTMENT OF PATHOLOGY AND GENOMIC MEDICINE MPV 9.3 6.9 - 11.0 fL [facility] DEPARTMENT OF PATHOLOGY AND GENOMIC MEDICINE Platelet count 345 150 - 400 K/uL [facility] DEPARTMENT OF PATHOLOGY AND GENOMIC MEDICINE Nucleated RBC 0.00 /100 WBC [facility] DEPARTMENT OF PATHOLOGY AND GENOMIC MEDICINE Neutrophils 81.2 (H) 39.0 - 69.0 % [facility] DEPARTMENT OF PATHOLOGY AND GENOMIC MEDICINE Lymphocytes 9.5 (L) 25.0 - 45.0 % [facility] DEPARTMENT OF PATHOLOGY AND GENOMIC MEDICINE Monocytes 6.2 0.0 - 10.0 % [facility] DEPARTMENT OF PATHOLOGY AND GENOMIC MEDICINE Eosinophils 1.0 0.0 - 5.0 % [facility] DEPARTMENT OF PATHOLOGY AND GENOMIC MEDICINE Basophils 0.4 0.0 - 1.0 % [facility] DEPARTMENT OF PATHOLOGY AND GENOMIC MEDICINE Immature granulocytes 1.7 (H) 0.0 - 1.0 % [facility] DEPARTMENT OF PATHOLOGY AND GENOMIC MEDICINE Specimen Blood Performing Organization Address City/[facility]/Zipcode Phone Number [facility] DEPARTMENT OF PATHOLOGY [address] [place] [address] AND [facility] Magnesium level (10/06/2017 12:30 PM)Only the most recent of9 resultswithin the time period is included. Magnesium 1.9 1.6 - 2.6 mg/dL [facility] DEPARTMENT OF PATHOLOGY AND GENOMIC MEDICINE Specimen Plasma specimen Performing Organization Address City/[facility]/Zipcode Phone Number [facility] DEPARTMENT OF PATHOLOGY [address] [place] [address] AND [facility] Comprehensive metabolic panel (10/06/2017 12:30 PM)Only the most recent of6 resultswithin the time period is included. Sodium 130 (L) 135 - 148 mEq/L [facility] DEPARTMENT OF PATHOLOGY AND GENOMIC MEDICINE Potassium 5.1 (H)Comment: Specimen 3.5 - 5.0 mEq/L [facility] DEPARTMENT is not hemolyzed. PATHOLOGY AND GENOMIC MEDICINE Chloride 98 98 - 112 mEq/L [facility] DEPARTMENT OF PATHOLOGY AND GENOMIC MEDICINE CO2 20 (L) 24 - 31 mEq/L [facility] DEPARTMENT OF PATHOLOGY AND GENOMIC MEDICINE Anion gap 12 7 - 15 mEq/L [facility] DEPARTMENT OF Comment: PATHOLOGY AND GENOMIC Starting from February , anion gap calculation MEDICINE no longer incorporates potassium. Please note the change. BUN 9 6 - 20 mg/dL [facility] DEPARTMENT OF PATHOLOGY AND GENOMIC MEDICINE Creatinine 0.7 0.5 - 0.9 mg/dL [facility] DEPARTMENT OF PATHOLOGY AND GENOMIC MEDICINE Glucose 142 (H) 65 - 99 mg/dL [facility] DEPARTMENT OF PATHOLOGY AND GENOMIC MEDICINE Calcium 8.8 8.3 - 10.2 mg/dL [facility] DEPARTMENT OF PATHOLOGY AND GENOMIC MEDICINE Protein 6.0 (L) 6.3 - 8.3 g/dL [facility] DEPARTMENT OF PATHOLOGY AND GENOMIC MEDICINE Albumin 3.0 (L) 3.5 - 5.0 g/dL [facility] DEPARTMENT OF PATHOLOGY AND GENOMIC MEDICINE A/G ratio 1.0 0.7 - 3.8 [facility] DEPARTMENT OF PATHOLOGY AND GENOMIC MEDICINE Alkaline phosphatase 81 35 - 104 U/L [facility] DEPARTMENT OF PATHOLOGY AND GENOMIC MEDICINE AST 20 10 - 35 U/L [facility] DEPARTMENT OF PATHOLOGY AND GENOMIC MEDICINE ALT 12 5 - 50 U/L [facility] DEPARTMENT OF PATHOLOGY AND GENOMIC MEDICINE Total bilirubin 0.4 0.2 - 1.2 mg/dL [facility] DEPARTMENT OF PATHOLOGY AND GENOMIC MEDICINE Specimen Plasma specimen Performing Organization Address City/[facility]/Zipcode Phone Number [facility] DEPARTMENT OF PATHOLOGY [address] [place] [address] AND [employer] [facility] Transfuse RBC (10/06/2017 7:41 AM)Only the most recent of4 resultswithin the time period is included.Occult blood, stool (10/06/2017 7:30 AM)Only the most recent of2 resultswithin the time period is included. Occult blood, stool Negative for occult blood. [facility] DEPARTMENT OF Comment: PATHOLOGY AND GENOMIC Specimen Information MEDICINE Specimen Source: Stool Specimen Site: Nonpreserved Specimen Stool - Nonpreserved Performing Organization Address City/[facility]/Zipcode Phone Number [facility] DEPARTMENT OF PATHOLOGY [address] [place] [address] AND [employer] [facility] Prepare RBC, 2 Units (10/05/2017 6:35 PM)Only the most recent of2 resultswithin the time period is included. Product name Red Blood Cells -1, [facility] DEPARTMENT OF Leukored PATHOLOGY AND GENOMIC MEDICINE Unit number [id number] [facility] DEPARTMENT OF PATHOLOGY AND GENOMIC MEDICINE Product code [id number] [facility] DEPARTMENT OF PATHOLOGY AND GENOMIC MEDICINE Dispense status Transfused [facility] DEPARTMENT OF PATHOLOGY AND GENOMIC MEDICINE Blood expiration date 20171029 [facility] DEPARTMENT OF PATHOLOGY AND GENOMIC MEDICINE Blood type code 5100 [facility] DEPARTMENT OF PATHOLOGY AND GENOMIC MEDICINE Blood type O POSITIVE [facility] DEPARTMENT OF PATHOLOGY AND GENOMIC MEDICINE Product name Red Blood Cells -1, [facility] DEPARTMENT OF Leukored PATHOLOGY AND GENOMIC MEDICINE Unit number [id number] [facility] DEPARTMENT OF PATHOLOGY AND GENOMIC MEDICINE Product code [id number] [facility] DEPARTMENT OF PATHOLOGY AND GENOMIC MEDICINE Dispense status Transfused [facility] DEPARTMENT OF PATHOLOGY AND GENOMIC MEDICINE Blood expiration date 20171029 [facility] DEPARTMENT OF PATHOLOGY AND GENOMIC MEDICINE Blood type code 5100 [facility] DEPARTMENT OF PATHOLOGY AND GENOMIC MEDICINE Blood type O POSITIVE [facility] DEPARTMENT OF PATHOLOGY AND GENOMIC MEDICINE Performing Organization Address City/State/Zipcode Phone Number [facility] DEPARTMENT OF PATHOLOGY [address] [place] [address]. [place] [address] AND GENOMIC MEDICINE Type and screen (10/05/2017 6:35 PM)Only the most recent of2 resultswithin the time period is included. ABO grouping OComment: 10/05/17 [facility] DEPARTMENT OF PATHOLOGY Blood is available. AND [employer] MEDICINE Called paz @ 20:02. Nicci Myalil Rh type POS [facility] DEPARTMENT OF PATHOLOGY AND GENOMIC MEDICINE Antibody screen (gel) NEG [facility] DEPARTMENT OF PATHOLOGY AND GENOMIC MEDICINE Specimen Blood Performing Organization Address City/[facility]/Zipcode Phone Number [facility] DEPARTMENT OF PATHOLOGY [address] [place] [address]. [place] [address] AND GENOMIC MEDICINE XR Chest 1 Vw Portable (10/05/2017 6:48 AM)Only the most recent of8 resultswithin the time period is included. Narrative Performed At EXAMINATION:XR CHEST 1 VW PORTABLE [facility] CLINICAL HISTORY:Pneumonia COMPARISON:Most recent. IMPRESSION: Interstitial and scattered patchy alveolar opacities, right greater than left, demonstrate marginal improvement. No pleural effusion is seen. The heart is borderline enlarged. [facility]-[id number] Procedure Note Hm Interface, Radiology Results Incoming - 10/05/2017 7:18 AM LINE TESTER EXAMINATION: XR CHEST 1 VW PORTABLE CLINICAL HISTORY: Pneumonia COMPARISON: Most recent. IMPRESSION: Interstitial and scattered patchy alveolar opacities, right greater than left, demonstrate marginal improvement. No pleural effusion is seen. The heart is borderline enlarged. [facility]-[id number] Performing Organization Address City/State/Zipcode Phone Number [facility] [address] [place] [address] Basic metabolic panel (10/04/2017 8:40 PM)Only the most recent of10 resultswithin the time period is included. Sodium 122 (L) 135 - 148 mEq/L [facility] DEPARTMENT OF PATHOLOGY AND GENOMIC MEDICINE Potassium 3.2 (L) 3.5 - 5.0 mEq/L [facility] DEPARTMENT OF PATHOLOGY AND GENOMIC MEDICINE Chloride 84 (L) 98 - 112 mEq/L [facility] DEPARTMENT OF PATHOLOGY AND GENOMIC MEDICINE CO2 26 24 - 31 mEq/L [facility] DEPARTMENT OF PATHOLOGY AND GENOMIC MEDICINE Anion gap 12 7 - 15 mEq/L [facility] DEPARTMENT OF Comment: PATHOLOGY AND GENOMIC Starting from February , anion gap calculation MEDICINE no longer incorporates potassium. Please note the change. BUN 10 6 - 20 mg/dL [facility] DEPARTMENT OF PATHOLOGY AND GENOMIC MEDICINE Creatinine 0.8 0.5 - 0.9 mg/dL [facility] DEPARTMENT OF PATHOLOGY AND GENOMIC MEDICINE Glucose 210 (H) 65 - 99 mg/dL [facility] DEPARTMENT OF PATHOLOGY AND GENOMIC MEDICINE Calcium 8.1 (L) 8.3 - 10.2 mg/dL [facility] DEPARTMENT OF PATHOLOGY AND GENOMIC MEDICINE Specimen Plasma specimen Performing Organization Address City/State/Zipcode Phone Number [facility] DEPARTMENT OF PATHOLOGY [address] [place] [address] AND [facility] PICC Line Insertion Fluoroscopy (10/04/2017 5:45 PM) Narrative Performed At [facility] Procedure: Left PICC line placement Performing [...] The needle was exchanged for a 5 Argentine peel-away sheath over the wire. A 5 Argentine double lumen PICC line was trimmed to [...] placement.The PICC line is ready for use. [facility]-[id number] Procedure Note Interface, Radiology Results Incoming - 10/04/2017 6:11 PM [facility] TE[facility] Procedure: Left PICC line placement Performing Radiologist: [...] The needle was exchanged for a 5 Argentine peel-away sheath over the wire. A 5 Argentine double lumen PICC line was trimmed to [...] The PICC line is ready for use. [facility]-[id number] Performing Organization Address City/State/Zipcode Phone Number [facility] [address] [place] [address] PICC Line Vascular Insertion (10/04/2017 5:45 PM) Narrative Performed At [facility] Procedure: Left PICC line placement Performing [...] The needle was exchanged for a 5 Argentine peel-away sheath over the wire. A 5 Argentine double lumen PICC line was trimmed to [...] placement.The PICC line is ready for use. [facility]-[id number] Procedure Note Hm Interface, Radiology Results Incoming - 10/04/2017 6:11 PM LINE TE[facility] Procedure: Left PICC line placement Performing Radiologist: [...] The needle was exchanged for a 5 Argentine peel-away sheath over the wire. A 5 Argentine double lumen PICC line was trimmed to [...] The PICC line is ready for use. [facility]-[id number] Performing Organization Address [facility] Phone Number [facility] [address] [place] [address] POC glucose (10/04/2017 7:26 AM)Only the most recent of44 resultswithin the time period is included. POC glucose 155 (H) 65 - 99 mg/dL [facility] DEPARTMENT OF PATHOLOGY Comment: AND GENOMIC MEDICINE RN Notified Meter ID: [id number] Razor Sharpener: Regalado Performing Organization Address [facility] Phone Number [facility] DEPARTMENT OF PATHOLOGY [address] [place] [address]. [place] [address] AND [facility] Creatinine level (10/03/2017 6:30 AM) Creatinine 1.0 (H) 0.5 - 0.9 mg/dL [facility] DEPARTMENT OF PATHOLOGY AND GENOMIC MEDICINE Specimen Plasma specimen Performing Organization Address [facility] [place] Phone Number [facility] DEPARTMENT OF PATHOLOGY [address] [place] [address]. [place] [address] AND [facility] Ionized calcium (10/02/2017 1:35 PM)Only the most recent of5 resultswithin the time period is included. pH 7.48 [facility] DEPARTMENT OF PATHOLOGY AND GENOMIC MEDICINE Ionized calcium 1.01 (L) 1.11 - 1.32 mmol/L [facility] DEPARTMENT OF PATHOLOGY AND GENOMIC MEDICINE Specimen Plasma specimen Performing Organization Address [facility] [place] Phone Number [facility] DEPARTMENT OF PATHOLOGY [address] [place] [address]. [place] [address] AND [facility] Arterial blood gas (10/02/2017 10:50 AM)Only the most recent of9 resultswithin the time period is included. pH, arterial 7.47 (H) 7.35 - 7.45 [facility] DEPARTMENT OF PATHOLOGY AND GENOMIC MEDICINE pCO2, arterial 46 (H) 35 - 45 mmHg [facility] DEPARTMENT OF PATHOLOGY AND GENOMIC MEDICINE pO2, arterial 83 80 - 90 mmHg [facility] DEPARTMENT OF PATHOLOGY AND GENOMIC MEDICINE Bicarbonate, arterial 33.0 (H) 21.0 - 28.0 mmol/L [facility] DEPARTMENT OF PATHOLOGY AND GENOMIC MEDICINE Base excess, arterial 9 (H) -2 - 2 mEq/L [facility] DEPARTMENT OF PATHOLOGY AND GENOMIC MEDICINE O2 saturation, arterial 98 95 - 100 % [facility] DEPARTMENT OF PATHOLOGY AND GENOMIC MEDICINE Specimen Blood Performing Organization Address [facility] Phone Number [facility] DEPARTMENT OF PATHOLOGY [address] [place] [address]. [place] [address] AND [employer] [facility] Ionized calcium, arterial (10/02/2017 4:08 AM)Only the most recent of3 resultswithin the time period is included. Ionized calcium, arterial 0.90 (L) 1.11 - 1.32 mmol/L [facility] DEPARTMENT OF PATHOLOGY AND GENOMIC MEDICINE Specimen Blood Performing Organization Address [facility] [place] Phone Number [facility] DEPARTMENT OF PATHOLOGY [address] [place] [address]. [place] [address] AND [employer] [facility] Smear review (10/02/2017 4:00 AM) Platelet slide review Bhavya adequateComment: [facility] DEPARTMENT OF Occasional platelet clumps PATHOLOGY AND GENOMIC seen on smear. Interpret MEDICINE result accordingly. Anisocytosis Moderate [facility] DEPARTMENT OF PATHOLOGY AND GENOMIC MEDICINE Ovalocytes Moderate [facility] DEPARTMENT OF PATHOLOGY AND GENOMIC MEDICINE Enlarged platelets Moderate (A) [facility] DEPARTMENT OF PATHOLOGY AND GENOMIC MEDICINE Smudge cells Few [facility] DEPARTMENT OF PATHOLOGY AND GENOMIC MEDICINE Giant platelets Occasional [facility] DEPARTMENT OF PATHOLOGY AND GENOMIC MEDICINE Toxic granulation Slight [facility] DEPARTMENT OF PATHOLOGY AND GENOMIC MEDICINE Neutrophils, vacuolated Slight [facility] DEPARTMENT OF PATHOLOGY AND GENOMIC MEDICINE Performing Organization Address [facility] Phone Number [facility] DEPARTMENT OF PATHOLOGY [address] [place] [address] [place] [address] AND [employer] Phosphorus level (10/02/2017 4:00 AM)Only the most recent of4 resultswithin the time period is included. Phosphorus 3.6 2.4 - 4.5 mg/dL [facility] DEPARTMENT OF PATHOLOGY AND GENOMIC MEDICINE Specimen Plasma specimen Performing Organization Address [facility] Phone Number [facility] DEPARTMENT OF PATHOLOGY [address] [place] [address]. [place] [id number] AND GENOMIC MEDICINE Sputum culture (09/30/2017 4:58 PM)Only the most recent of2 resultswithin the time period is included. Sputum culture isolate No normal oral candy isolated. (A) [facility] DEPARTMENT OF Comment: PATHOLOGY AND GENOMIC Specimen Information MEDICINE Specimen Source: Sputum Specimen Site: Not specified Sputum culture isolate Jo-Ann albicans [facility] DEPARTMENT OF Many PATHOLOGY AND GENOMIC The performance characteristics of this assay on this isolate MEDICINE were validated by the Microbiology Laboratory at [facility].This source has not been approved by the U.S. Food and Drug Administration.The results are not intended to be used as the sole means for clinical diagnosis or patient management.The Microbiology Laboratory is authorized under the clinical Laboratory Improvement Amendments of 1988 (CLIA-88) to perform high complexity testing. (A) Specimen Sputum - Not specified Performing Organization Address City/State/Zipcode Phone Number [facility] DEPARTMENT OF PATHOLOGY AND [address] [place] [address] GENOMIC MEDICINE Manual differential (09/30/2017 3:29 PM)Only the most recent of6 resultswithin the time period is included. Manual differential PERFORMED [facility] DEPARTMENT OF PATHOLOGY AND GENOMIC MEDICINE Neutrophils 80.0 (H)Comment: 39.0 - 69.0 % [facility] DEPARTMENT OF Corrected result; PATHOLOGY AND GENOMIC previously reported as MEDICINE 0.0 on 09/30/2017 at 16:13 by [facility] Lymphocytes 11.0 (L)Comment: 25.0 - 45.0 % [facility] DEPARTMENT OF Corrected result; PATHOLOGY AND GENOMIC previously reported as MEDICINE 0.0 on 09/30/2017 at 16:13 by [facility] Monocytes 8.0Comment: Corrected 0.0 - 10.0 % [facility] DEPARTMENT OF result; previously PATHOLOGY AND GENOMIC reported as 0.0 on MEDICINE 09/30/2017 at 16:13 by [facility] Eosinophils 0.0 0.0 - 5.0 % [facility] DEPARTMENT OF PATHOLOGY AND GENOMIC MEDICINE Basophils 0.0 0.0 - 1.0 % [facility] DEPARTMENT OF PATHOLOGY AND GENOMIC MEDICINE Metamyelocytes 1 % [facility] DEPARTMENT OF PATHOLOGY AND GENOMIC MEDICINE Myelocytes 1 % [facility] DEPARTMENT OF PATHOLOGY AND GENOMIC MEDICINE Platelet slide review Bhavya adequate [facility] DEPARTMENT OF PATHOLOGY AND GENOMIC MEDICINE Toxic granulation Slight [facility] DEPARTMENT OF PATHOLOGY AND GENOMIC MEDICINE Neutrophils, vacuolated Slight [facility] DEPARTMENT OF PATHOLOGY AND GENOMIC MEDICINE Anisocytosis Moderate [facility] DEPARTMENT OF PATHOLOGY AND GENOMIC MEDICINE Polychromasia Moderate [facility] DEPARTMENT OF PATHOLOGY AND GENOMIC MEDICINE Schistocytes Occasional [facility] DEPARTMENT OF PATHOLOGY AND GENOMIC MEDICINE Performing Organization Address City/[facility]/Zipcode Phone Number [facility] DEPARTMENT OF PATHOLOGY [id number] [place] [id number] [place] [address] [employer] [facility] Urinalysis screen and microscopy, with reflex to culture (09/29/2017 12:37 PM) Only the most recent of2 resultswithin the time period is included. Specimen site Catheterized [facility] DEPARTMENT OF PATHOLOGY AND GENOMIC MEDICINE Color, UA Yellow [facility] DEPARTMENT OF PATHOLOGY AND GENOMIC MEDICINE Appearance, UA Sl Cloudy [facility] DEPARTMENT OF PATHOLOGY AND GENOMIC MEDICINE Specific gravity, UA 1.021 1.001 - 1.030 [facility] DEPARTMENT OF PATHOLOGY AND GENOMIC MEDICINE pH, UA 5.0 5.0 - 9.0 [facility] DEPARTMENT OF PATHOLOGY AND GENOMIC MEDICINE Protein, UA Negative Negative [facility] DEPARTMENT OF PATHOLOGY AND GENOMIC MEDICINE Glucose, UA Negative Negative [facility] DEPARTMENT OF PATHOLOGY AND GENOMIC MEDICINE Ketones, UA Negative Negative [facility] DEPARTMENT OF PATHOLOGY AND GENOMIC MEDICINE Bilirubin, UA Negative Negative [facility] DEPARTMENT OF PATHOLOGY AND GENOMIC MEDICINE Blood, UA Small (A) Negative [facility] DEPARTMENT OF PATHOLOGY AND GENOMIC MEDICINE Nitrite, UA Negative Negative [facility] DEPARTMENT OF PATHOLOGY AND GENOMIC MEDICINE Urobilinogen, UA <2.0 <2.0 E.U./dL [facility] DEPARTMENT OF PATHOLOGY AND GENOMIC MEDICINE Leukocyte esterase, UA Moderate (A) Negative [facility] DEPARTMENT OF PATHOLOGY AND GENOMIC MEDICINE Epithelial cells, UA >20 /HPF [facility] DEPARTMENT OF PATHOLOGY AND GENOMIC MEDICINE WBC, UA 20 (H) 0 - 4 /HPF [facility] DEPARTMENT OF PATHOLOGY AND GENOMIC MEDICINE RBC, UA 2 0 - 2 /HPF [facility] DEPARTMENT OF PATHOLOGY AND GENOMIC MEDICINE Bacteria, UA Few None seen [facility] DEPARTMENT OF PATHOLOGY AND GENOMIC MEDICINE Yeast, UA None seen [facility] DEPARTMENT OF PATHOLOGY AND GENOMIC MEDICINE Yeast with pseudohyphae, UA None seen [facility] DEPARTMENT OF PATHOLOGY AND GENOMIC MEDICINE Specimen Urine Performing Organization Address City/State/Zipcode Phone Number [facility] DEPARTMENT OF PATHOLOGY [id number] [place] [id number] AND [employer] Gram stain (09/29/2017 12:37 PM)Only the most recent of2 resultswithin the time period is included. Gram stain result No WBC's or organisms seen. [facility] DEPARTMENT OF PATHOLOGY Comment: AND GENOMIC MEDICINE Specimen Information Specimen Source: Urine Specimen Site: See UA Specimen Urine Performing Organization Address [facility] Phone Number [facility] DEPARTMENT OF PATHOLOGY AND [address] [place] [address] [facility] MEDICINE Urine culture (09/29/2017 12:37 PM)Only the most recent of2 resultswithin the time period is included. Urine culture isolate No growth after 2 days. [facility] DEPARTMENT OF PATHOLOGY Comment: AND GENOMIC MEDICINE Specimen Information Specimen Source: Urine Specimen Site: See UA Specimen Urine Performing Organization Address City/[facility]/Zipcode Phone Number [facility] DEPARTMENT OF PATHOLOGY AND [address] [place] [address] [facility] MEDICINE Partial thromboplastin time, activated (09/29/2017 4:30 AM)Only the most recent of3 resultswithin the time period is included. PTT 37.1 (H) 23.0 - 36.0 sec [facility] DEPARTMENT OF Comment: PATHOLOGY AND GENOMIC PTT therapeutic range for unfractionated heparin is MEDICINE 61.0-112.0 seconds which corresponds to Anti-Xa 0.3-0.7 U/ml. Specimen Blood Performing Organization Address [facility] Phone Number [facility] DEPARTMENT OF PATHOLOGY [id number] [place] [address] AND [employer] MEDICINE Prothrombin time with INR (09/29/2017 4:30 AM)Only the most recent of3 resultswithin the time period is included. Prothrombin time 16.8 (H) 12.0 - 15.0 sec [facility] DEPARTMENT OF PATHOLOGY AND GENOMIC MEDICINE INR 1.3 [facility] DEPARTMENT OF Comment: PATHOLOGY AND GENOMIC The International Normalized Ratio (INR) is a therapeutic MEDICINE monitoring tool for patients who are stable on oral anticoagulant therapy. An INR of 2.0-3.0 is suggested for deep vein thrombosis/pulmonary embolism. Specimen Blood Performing Organization Address [facility] Phone Number [facility] DEPARTMENT OF PATHOLOGY [id number] [place] [address] AND GENOMIC MEDICINE Consult to Sepsis Response Team (09/28/2017 [...] trough 9.9 (L) 10.0 - 20.0 ug/mL [facility] DEPARTMENT OF Comment: PATHOLOGY AND GENOMIC Therapeutic Ranges: MEDICINE Peak30.0 - 40.0 ug/mL Amlvns10.0 - 20.0 ug/mL Specimen Blood Performing Organization Address [facility] Phone Number [facility] DEPARTMENT OF PATHOLOGY [address] [place] [address]. [place] [address] AND [employer] Hemoglobin & hematocrit (09/26/2017 7:45 PM)Only the most recent of2 resultswithin the time period is included. HGB 7.9 (L) 12.0 - 16.0 g/dL [facility] DEPARTMENT OF PATHOLOGY AND GENOMIC MEDICINE HCT 23.3 (L) 37.0 - 47.0 % [facility] DEPARTMENT OF PATHOLOGY AND GENOMIC MEDICINE Specimen Blood Performing Organization Address [facility] Phone Number [facility] DEPARTMENT OF PATHOLOGY [address] [place] [address] AND [employer] [facility] Echocardiogram complete w contrast and 3D [...] mean PCWP is 20-25mmHg Performing Organization Address [facility] [place] Phone Number [facility] [address] [place] [address] Total iron binding capacity (09/26/2017 9:15 AM) Iron level 9 (L) 37 - 145 ug/dL [facility] DEPARTMENT OF PATHOLOGY AND GENOMIC MEDICINE Iron binding capacity 234 (L) 260 - 460 ug/dL [facility] DEPARTMENT OF PATHOLOGY AND GENOMIC MEDICINE % Saturation 3.8 (L) 15.0 - 38.0 % [facility] DEPARTMENT OF PATHOLOGY AND GENOMIC MEDICINE Specimen Plasma specimen Performing Organization Address [facility] [place] Phone Number [facility] DEPARTMENT OF PATHOLOGY [id number] [place] [address]. [place] [address] AND [facility] Reticulocyte count (09/26/2017 9:15 AM) Retic %, auto 1.8 0.5 - 2.1 % [facility] DEPARTMENT OF PATHOLOGY AND GENOMIC MEDICINE Retic absolute, auto 0.0477 0.0210 - 0.1155 m/uL [facility] DEPARTMENT OF PATHOLOGY AND GENOMIC MEDICINE Specimen Blood Performing Organization Address [facility] [place] Phone Number [facility] DEPARTMENT OF PATHOLOGY [address] [place] [address] AND [facility] Thyroid stimulating hormone (09/26/2017 9:15 AM) TSH 0.42 0.27 - 4.20 uIU/mL [facility] DEPARTMENT OF PATHOLOGY AND GENOMIC MEDICINE Specimen Plasma specimen Performing Organization Address City/[facility] Phone Number [facility] DEPARTMENT OF PATHOLOGY [address] [place] [address]. [place] [address] AND [facility] Folate level (09/26/2017 9:15 AM) Folate 7.3 4.8 - 24.2 ng/mL [facility] DEPARTMENT OF PATHOLOGY AND GENOMIC MEDICINE Specimen Serum Performing Organization Address [facility] Phone Number [facility] DEPARTMENT OF PATHOLOGY AND [address] [place] [address] Ferritin level (09/26/2017 9:15 AM) Ferritin level 211 (H) 13 - 150 ng/mL [facility] DEPARTMENT OF PATHOLOGY AND GENOMIC MEDICINE Specimen Plasma specimen Performing Organization Address [facility] Phone Number [facility] DEPARTMENT OF PATHOLOGY AND [address] [place] [address] Vitamin B12 level (09/26/2017 9:15 AM) Vitamin B12 745 211 - 946 pg/mL [facility] DEPARTMENT OF PATHOLOGY Comment: AND [facility] MEDICINE Significant overlap exists between normal and deficiency states. However, most patients with deficiencies will have Serum B12 <200 pg/mL. Specimen Serum Performing Organization Address [facility] Phone Number [facility] DEPARTMENT OF PATHOLOGY AND [address] [place] [address] CK-MB (09/26/2017 8:00 AM)Only the most recent of3 resultswithin the time period is included. CK-MB 20.8 (H) 1.0 - 5.3 ng/mL [facility] DEPARTMENT OF PATHOLOGY AND GENOMIC MEDICINE Specimen Plasma specimen Performing Organization Address City/[facility] Phone Number [facility] DEPARTMENT OF PATHOLOGY [address] [place] [address]. [place] [address] AND [facility] Troponin (09/26/2017 8:00 AM)Only the most recent of3 resultswithin the time period is included. Troponin 0.93 (H) 0.00 - 0.30 ng/mL [facility] DEPARTMENT OF PATHOLOGY Comment: AND GENOMIC MEDICINE 0.11 - 1.49 ng/mlMay indicate increased risk of acute coronary syndrome. >=1.5 ng/mlConsistent with acute myocardial infarction. The diagnostic value of a single normal or non-diagnostic result is questionable.Serial samples at 2-6 hour intervals are required to rule out acute myocardial injury. Specimen Plasma specimen Performing Organization Address City/[facility]/Zipcode Phone Number [facility] DEPARTMENT OF PATHOLOGY [address] [facility] [place] [address] AND [employer] Creatine kinase, total (CPK) (09/26/2017 8:00 AM)Only the most recent of2 resultswithin the time period is included. Creatine kinase 1,047 (H) 26 - 192 U/L [facility] DEPARTMENT OF PATHOLOGY AND [employer] [facility] Specimen Plasma specimen Performing Organization Address [facility]/Zipcode Phone Number [facility] DEPARTMENT OF PATHOLOGY [address] [facility] [place] [address] AND [employer] Insert arterial line (09/26/2017 2:57 AM) Narrative [...] more than 12 months post-infection. Performed by [employer], [address] [place] [address] [email or web address] Eliseo Vazquez MD - Lab. Director Specimen Serum Performing Organization Address [facility] Phone Number [facility] [address] [place] [address] O2 saturation, venous (09/26/2017 2:10 AM) Hemoglobin, venous, syringe 8.1 (L) 12.0 - 16.0 g/dL [facility] DEPARTMENT OF PATHOLOGY AND GENOMIC MEDICINE O2 saturation, venous 80 (H) 40 - 70 % [facility] DEPARTMENT OF PATHOLOGY AND GENOMIC MEDICINE Specimen Blood Performing Organization Address [facility] [place] Phone Number [facility] DEPARTMENT OF PATHOLOGY [address] [place] [address]. [place] [address] AND [facility] Lactic acid level (09/26/2017 2:10 AM)Only the most recent of2 resultswithin the time period is included. Lactic acid 1.6 0.5 - 2.2 mmol/L [facility] DEPARTMENT OF PATHOLOGY AND GENOMIC MEDICINE Specimen Plasma specimen Performing Organization Address [facility] Phone Number [facility] DEPARTMENT OF PATHOLOGY [address] [place] [address]. [place] [address] AND [facility] Respiratory pathogen panel (09/26/2017 12:15 AM) Respiratory pathogen Negative for all pathogens tested: [facility] DEPARTMENT OF panel Negative for Adenovirus PATHOLOGY [...] Specimen Nares - Right Performing Organization Address [facility] Phone Number [facility] DEPARTMENT OF PATHOLOGY AND [address] [place] [address] Streptococcus pneumoniae urinary antigen (09/25/2017 10:35 PM) Strep pneumo urinary Ag Negative for Streptococcus pneumoniae antigen. [facility] DEPARTMENT OF Comment: PATHOLOGY AND GENOMIC Specimen Information MEDICINE Specimen Source: Urine Specimen Site: [place] Specimen Urine - [place] Performing Organization Address [facility] [place] Phone Number [facility] DEPARTMENT OF PATHOLOGY AND [address] [place] [address] Legionella urinary antigen (09/25/2017 10:35 PM) Legionella urinary Negative for Legionella serogroup 1 antigen. [facility] DEPARTMENT OF antigen Comment: PATHOLOGY AND GENOMIC Specimen Information MEDICINE Specimen Source: Urine Specimen Site: [place] Specimen Urine - [place] Performing Organization Address [facility] [place] Phone Number [facility] DEPARTMENT OF PATHOLOGY AND [address] [place] [address] ECG 12 lead (09/25/2017 9:40 PM) Ventricular rate 97 [facility] MUSE Atrial rate 97 [facility] MUSE FL interval 166 [facility] MUSE QRSD interval 70 [facility] MUSE QT interval 364 [facility] MUSE QTC interval 462 [facility] MUSE P axis 1 39 [facility] MUSE QRS axis 1 55 [facility] MUSE T wave axis 53 [facility] MUSE EKG impression Normal sinus rhythm-Nonspecific ST abnormality-Abnormal ECG-In automated comparison with ECG of 23-SEP-2017 11:52,-Vent. rate has increased BY 49 ILB-Flt-yptssphb change in ST segment in Anterior bonifacio [facility] MUSE ds-Nonspecific T wave abnormality no longer evident in Anterior leads-QT has lengthened- Performing Organization Address [facility] [place] [address] Legionella culture (09/25/2017 9:30 PM) Legionella culture No Legionella isolated. [facility] DEPARTMENT OF isolate Comment: PATHOLOGY AND GENOMIC Specimen Information MEDICINE Specimen Source: Sputum Specimen Site: Expectorated Specimen Sputum - Expectorated Performing Organization Address City/[facility]/Zipcode Phone Number [facility] DEPARTMENT OF PATHOLOGY AND [address] [place] [address] [facility] Blood culture, aerobic & anaerobic (09/25/2017 8:35 PM)Only the most recent of2 resultswithin the time period is included. Blood culture isolate No growth after 5 days of incubation. [facility] DEPARTMENT OF Comment: PATHOLOGY AND GENOMIC Specimen Information MEDICINE Specimen Source: Blood Specimen Site: Line, IJ (intrajugular) Specimen Blood - Line, IJ (intrajugular) Performing Organization Address City/[facility]/Zipcode Phone Number [facility] DEPARTMENT OF PATHOLOGY AND [address] [place] [address] [facility] B natriuretic peptide (09/25/2017 8:18 PM) BNP 3,623 (H) 0 - 100 pg/mL [facility] DEPARTMENT OF PATHOLOGY AND GENOMIC MEDICINE Specimen Blood Performing Organization Address City/[facility]/Zipcode Phone Number [facility] DEPARTMENT OF PATHOLOGY [address] [place] [address] AND [employer] MEDICINE after 08/05/2017 Insurance Payer Benefit Plan / Group Subscriber ID Type Phone Address BCBS BCBS CHOICE PPO/[employer]ER[employer] EMPL PPO xxxxxxxxxxxx PPO Home: [address] [place] [phone] [address]
[2018-08-06 10:28] LABS: Protime INR 0.97
[2018-08-06 10:42] LABS: Absolute Lymphocytes (CBC) 1.8 K/uL (0.7-4.9); Absolute Neutrophil 13.8 K/uL (1.8-8.0); Basophils % 0.1 % (0-1.3); Eosinophils % 0.3 % (0-4.4); Hematocrit 37.2 % (36.0-45.0); MCH 31.6 pg (27.0-35.0); MCV 90.8 fL (80-100); Monocytes % 6.1 % (3.3-12.3); RBC Red Blood Cell Count 4.09 M/uL (3.86-4.86)
[2018-08-06] MEDS ORDERED: DERMABOND SKIN ADHESIVE TOP ONE (10:46)
[2018-08-06 11:00] LABS: ALT/SGPT 41 U/L (12-78); AST/SGOT 39 U/L (15-37); Albumin 3.9 g/dL (3.4-5.0); Alkaline Phosphatase 103 U/L (45-117); BUN Blood Urea Nitrogen 5 mg/dL (7-18); Bicarbonate 21 mmol/L (21-32); Bilirubin Direct 0.1 mg/dL (0-0.2); Bilirubin Total 0.4 mg/dL (0.2-1.0); Glucose Level 103 mg/dL (74-106); Potassium 3.9 mmol/L (3.5-5.1); Protein, Total 7.8 g/dL (6.4-8.2); Sodium Level 128 mmol/L (136-145)
[2018-08-06 11:15] LABS: Barbiturates NEGATIVE (NEGATIVE); Benzodiazepines NEGATIVE (NEGATIVE); Cocaine NEGATIVE (NEGATIVE); METHAMPHETAM NEGATIVE (NEGATIVE); Methadone NEGATIVE (NEGATIVE); Opiates POSITIVE (NEGATIVE); Phencyclidine NEGATIVE (NEGATIVE); THC Cannibis NEGATIVE (NEGATIVE)
[2018-08-06] MEDS ORDERED: NA CHLORIDE 0.9% 1,000 ML ONE ×3 (11:30→15:55)
[2018-08-06] MEDS ORDERED: NICOTINE 21 MG/PAT TD ONE (12:21)
[2018-08-06] MEDS ORDERED: ONDANSETRON 4 MG/2 ML VIAL ONE (12:25)
[2018-08-06 12:52] LABS: Urine Blood TRACE (NEG); Urine Glucose NEGATIVE (NEG); Urine Protein NEGATIVE (NEG); Urine Specific Gravity 1.015 (1.005-1.030); Urine pH 6.5 (5.0-7.0)
[2018-08-06 15:15] LABS: Absolute Monocytes 0.7 K/uL (0.1-1.3); Basophils % 0.2 % (0-1.3); Eosinophils % 0.1 % (0-4.4); Hematocrit 35.4 % (36.0-45.0); Lymphocytes % 14.8 % (15.3-44.8); MCH 31.6 pg (27.0-35.0); MCV 89.9 fL (80-100); MPV 7.7 fL (7.6-11.3); RBC Red Blood Cell Count 3.93 M/uL (3.86-4.86)
[2018-08-06 15:21] LABS: BUN Blood Urea Nitrogen 4 mg/dL (7-18); Bicarbonate 20 mmol/L (21-32); Glucose Level 116 mg/dL (74-106); Sodium Level 133 mmol/L (136-145)
--- NOTE | 2018-08-06 17:20 | EDPHYS ---
Physician Documentation [facility] Name: Pratibha Jennings Age: 52 yrs Sex: Female : 1965 Arrival Date: 08/06/2018 Time: 09:36 Bed 16 Private MD: ED Physician Rigoberto Carmichael HPI: 08/06 11:00 This 52 yrs old Female presents to ER via EMS with complaints of suicidal kb attempt, laceration to neck. 11:00 The patient presents to the emergency department with a history of a suicide gesture, kb cut neck. Onset: The symptoms/episode began/occurred just prior to arrival. Associated signs and symptoms: The patient has no apparent associated signs or symptoms. Severity of symptoms: At their worst the symptoms were moderate in the emergency department the symptoms are unchanged. The patient has not experienced similar symptoms in the past. The patient has not recently seen a physician. Pt states she was not trying to kill herself, she was just tired and made a mistake. Pt denies any psychiatric history. States she has had a bad year because of multiple things including her mother's , but denies suicidal ideations and depression. . states pt has not been acting like herself for the past year. States she used to go for walks daily and call friends, but now just lays around the house. Doesn't socialize with anyone or leave the house really. States he came home from work last night and found her outside laying on a lounge chair with a pillow and blanket. States "she tried to hide something under the chair when she saw me. I got closer and saw that it was a media reporter's knife and mirror. I got her inside and we went to bed. This morning I looked into her room and saw that she was still in bed so I did a few things around the house. The cat went into her bedroom so I went in after it and noticed that she put pillows in the bed to make it look like she was under the blanket. I got worried and started looking for her. I found her outside again on the lounge chair, but she had moved it to the side of the house. She had the mirror and media reporter's knife in her hand and I noticed blood on it then saw her neck. I called 911 after that." States she has a lot of heavy medication at home because of chronic back pain and he thinks she has been taking too much of those as well because she has had falls. Recently pt fell when getting up in the middle of the night and broke her wrist (splint in place to left arm).. 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 - Post-menopause em Historical: - Allergies: 09:50 Iodine; em - Home Meds: 09:50 Ambien 5 mg Oral tab 1 tab once daily [Active]; diazepam 5 mg Oral tab 1 tab daily rb1 [Active]; gabapentin 600 mg Oral tab 1 tab daily [Active]; lidocaine patch [Active]; Lipitor 40 mg Oral tab 1 tab once daily [Active]; metoprolol tartrate 25 mg Oral tab 1 tab once daily [Active]; morphine 15 mg Oral tab 1 tab every 4 hours [Active]; Neurontin 600 mg Oral tab 1 tab daily [Active]; oxycodone-acetaminophen 10-650 mg Oral tab 1 tab every 6 hours [Active]; tizanidine 4 mg Oral cap 1 cap [Active]; Valium 5 mg Oral tab 1 tab daily [Active]; Zanaflex 4 mg Oral tab 1 tab every 8 hours [Active]; Zofran Oral [Active]; - PMHx: 09:50 Back pain; Chronic pain; Degenerative disc disease; Hyperlipidemia; Hypertension; em ADD/ADHD; - PSHx: 09:50 bilateral knees; back; rb1 - Immunization history:: Adult Immunizations up to date. - Social history:: Smoking status: Patient uses tobacco products, smokes one-half pack cigarettes per day. - Ebola Screening: : Patient negative for fever greater than or equal to 101.5 degrees Fahrenheit, and additional compatible Ebola Virus Disease symptoms Patient denies exposure to infectious person Patient denies travel to an Ebola-affected area in the 21 days before illness onset No symptoms or risks identified at this time. ROS: 11:00 Constitutional: Negative for fever, chills, and weight loss, ENT: Negative for injury, kb pain, and discharge, Neck: Negative for injury, pain, and swelling, Cardiovascular: Negative for chest pain, palpitations, and edema, Respiratory: Negative for shortness of breath, cough, wheezing, and pleuritic chest pain, Abdomen/GI: Negative for abdominal pain, nausea, vomiting, diarrhea, and constipation, Back: Negative for injury and pain, : Negative for injury, bleeding, discharge, and swelling, Skin: Negative for injury, rash, and discoloration, Neuro: Negative for headache, weakness, numbness, tingling, and seizure. 11:00 MS/extremity: Positive for of the left arm, splint in place . 11:00 Skin: Positive for laceration(s), of the right lateral aspect of neck. Exam: 11:00 Constitutional: This is a well developed, well nourished patient who is awake, alert, kb and in no acute distress. Head/Face: Normocephalic, atraumatic. ENT: Nares patent. No nasal discharge, no septal abnormalities noted. Tympanic membranes are normal and external auditory canals are clear. Oropharynx with no redness, swelling, or masses, exudates, or evidence of obstruction, uvula midline. Mucous membranes moist. Chest/axilla: Normal chest wall appearance and motion. Nontender with no deformity. No lesions are appreciated. Cardiovascular: Regular rate and rhythm with a normal S1 and S2. No gallops, murmurs, or rubs. Normal PMI, no JVD. No pulse deficits. Respiratory: Lungs have equal breath sounds bilaterally, clear to auscultation and percussion. No rales, rhonchi or wheezes noted. No increased work of breathing, no retractions or nasal flaring. Abdomen/GI: Soft, non-tender, with normal bowel sounds. No distension or tympany. No guarding or rebound. No evidence of tenderness throughout. Back: No spinal tenderness. No costovertebral tenderness. Full range of motion. Neuro: Awake and alert, GCS 15, oriented to person, place, time, and situation. Cranial nerves II-XII grossly intact. Motor strength 5/5 in all extremities. Sensory grossly intact. Cerebellar exam normal. Normal gait. 11:00 Neck: External neck: laceration, that is superficial, linear, with no appreciated foreign body, no underlying injury appreciated. 11:00 Musculoskeletal/extremity: splint in place to left arm. 11:00 Skin: injury, laceration(s), the wound is approximately 5 cm(s), of the right lateral aspect of neck, that can be described as clean, no foreign body, linear, without bleeding, laceration is superficial. Vital Signs: 09:50 Pulse 102; Resp 18; Temp 98.4; Pulse Ox 100% on R/A; em 09:50 BP 151 / 97; rb1 14:48 BP 154 / 67; Pulse 98; Resp 18; Pulse Ox 100% ; ms 16:30 BP 147 / 78; Pulse 91; Resp 17; Pulse Ox 100% on R/A; rb1 Laceration: 11:52 Wound Repair of 5cm ( 2.0in ) subcutaneous laceration to right lateral aspect of neck. kb Linear shaped.. Distal neuro/vascular/tendon intact. Wound prep: Moderate cleansing with hibiclenz by nurse, Wound irrigation with saline by nurse. Skin closed with thin layer Adhesive skin closure using Dermabond. Patient tolerated well. MDM: 09:36 Patient medically screened. kb 11:11 Data reviewed: vital signs, nurses notes. Data interpreted: Pulse oximetry: on room air kb is 100 %. Interpretation: normal. 16:40 Counseling: I had a detailed discussion with the patient and/or guardian regarding: the kb historical points, exam findings, and any diagnostic results supporting the discharge/admit diagnosis, lab results, radiology results, the need to transfer to another facility, [facility] does not immediately have the required specialist. 08/06 09:50 Order name: Acetaminophen; Complete Time: 11:11 kb 08/06 09:50 Order name: Basic Metabolic Panel; Complete Time: 11:11 kb 08/06 09:50 Order name: CBC with Diff; Complete Time: 10:48 kb 08/06 09:50 Order name: ETOH Level; Complete Time: 11:17 kb 08/06 09:50 Order name: Hepatic Function; Complete Time: 11:11 kb 08/06 09:50 Order name: PT-INR; Complete Time: 10:35 kb 08/06 09:50 Order name: Ptt, Activated; Complete Time: 10:35 kb 08/06 09:50 Order name: Salicylate; Complete Time: 10:59 kb 08/06 09:50 Order name: Urine Drug Screen; Complete Time: 11:17 kb 08/06 10:16 Order name: Urine Dipstick--Ancillary (enter results); Complete Time: 12:54 bd 08/06 14:18 Order name: CBC with Diff kb 08/06 14:18 Order name: Basic Metabolic Panel kb 08/06 14:18 Order name: CBC with Automated Diff; Complete Time: 15:24 EDMS 08/06 14:18 Order name: Basic Metabolic Panel; Complete Time: 15:24 EDMS 08/06 09:50 Order name: EKG; Complete Time: 09:51 kb 08/06 09:50 Order name: EKG - Nurse/Tech; Complete Time: 10:39 kb 08/06 09:50 Order name: IV Saline Lock; Complete Time: 10:56 kb 08/06 09:50 Order name: Labs collected and sent; Complete Time: 10:56 kb 08/06 09:50 Order name: Urine Dipstick-Ancillary (obtain specimen); Complete Time: 10:56 kb 08/06 09:50 Order name: Dermabond; Complete Time: 12:31 kb 08/06 10:25 Order name: Wound Care; Complete Time: 10:55 kb 08/06 14:27 Order name: Diet Finger Food; Complete Time: 14:27 rb1 Administered Medications: 11:33 Drug: NS 0.9% 1000 ml Route: IV; Rate: 1000 ml; Site: right antecubital; rb1 12:16 Drug: Nicoderm CQ 21 mg/24 hr 21 mg {Note: Left upper back.} Route: Transdermal; Site: rb1 affected area; 12:25 Drug: Zofran 4 mg Route: IVP; Site: right antecubital; rb1 12:40 Follow up: Response: No adverse reaction; Nausea is decreased rb1 12:35 Drug: NS 0.9% 1000 ml Route: IV; Rate: 1000 ml; Site: right antecubital; rb1 15:51 Drug: NS 0.9% 1000 ml Route: IV; Rate: 1000 ml; Site: right antecubital; rb1 17:11 Follow up: IV Status: Completed infusion rb1 Disposition: 18:55 Co-signature as Attending Physician, Rigoberto Carmichael MD. rn Disposition: 08/06/18 17:19 Transfer ordered to [facility]. Diagnosis is Suicide attempt. - Reason for transfer: Higher level of care. - Accepting physician is Carrington sanchez [facility]. - Condition is Stable. - Problem is new. - Symptoms are unchanged. Signatures: Dispatcher [employer] EDIoana Marcum, UC ARCHITECT-C UC ARCHITECT-Ckb Aly Aguilar, RESEARCH ENGINEER RESEARCH ENGINEER Rigoberto Santos MD MD rn Barber, Rebecca RN RN rb1 Corrections: (The following items were deleted from the chart) 17:41 17:19 08/06/2018 17:19 Transfer ordered to Psych Facility. Diagnosis is Suicide rb1 attempt. Reason for transfer: Higher level of care. Accepting physician is Carrington sanchez [facility]. Condition is Stable. Problem is new. Symptoms are unchanged. kb
--- NOTE | 2018-08-06 17:20 | ER ---
Nurse's Notes [facility] Name: Pratibha Jennings Age: 52 yrs Sex: Female : 1965 Arrival Date: 08/06/2018 Time: 09:36 Bed 16 Private MD: Diagnosis: Suicide attempt Presentation: 08/06 09:41 Presenting complaint: EMS states: called for a suicide attempt, cut right side em of neck with kitchen knife about 2-3 inch laceration noted to neck, bleeding controlled, pt states she was tired and is currently not suicidal at the moment, denies HI, also noncompliant with medications, denies being depressed. Transition of care: patient was not received from another setting of care. Onset of symptoms was August 06, 2018. Risk Assessment: Do you want to hurt yourself or someone else? Patient reports no desire to harm self or others. Initial Sepsis Screen: Does the patient meet any 2 criteria? No. Patient's initial sepsis screen is negative. Does the patient have a suspected source of infection? No. Patient's initial sepsis screen is negative. Care prior to arrival: None. 09:41 Method Of Arrival: EMS: [facility] em 09:43 Acuity: NUSRAT 2 ss Triage Assessment: 09:50 General: Appears in no apparent distress. Behavior is calm, cooperative. Pain: em Complains of pain in right lateral aspect of neck. 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 LMP N/A - Post-menopause em Historical: - Allergies: 09:50 Iodine; em - Home Meds: 09:50 Ambien 5 mg Oral tab 1 tab once daily [Active]; diazepam 5 mg Oral tab 1 tab daily rb1 [Active]; gabapentin 600 mg Oral tab 1 tab daily [Active]; lidocaine patch [Active]; Lipitor 40 mg Oral tab 1 tab once daily [Active]; metoprolol tartrate 25 mg Oral tab 1 tab once daily [Active]; morphine 15 mg Oral tab 1 tab every 4 hours [Active]; Neurontin 600 mg Oral tab 1 tab daily [Active]; oxycodone-acetaminophen 10-650 mg Oral tab 1 tab every 6 hours [Active]; tizanidine 4 mg Oral cap 1 cap [Active]; Valium 5 mg Oral tab 1 tab daily [Active]; Zanaflex 4 mg Oral tab 1 tab every 8 hours [Active]; Zofran Oral [Active]; - PMHx: 09:50 Back pain; Chronic pain; Degenerative disc disease; Hyperlipidemia; Hypertension; em ADD/ADHD; - PSHx: 09:50 bilateral knees; back; rb1 - Immunization history:: Adult Immunizations up to date. - Social history:: Smoking status: Patient uses tobacco products, smokes one-half pack cigarettes per day. - Ebola Screening: : Patient negative for fever greater than or equal to 101.5 degrees Fahrenheit, and additional compatible Ebola Virus Disease symptoms Patient denies exposure to infectious person Patient denies travel to an Ebola-affected area in the 21 days before illness onset No symptoms or risks identified at this time. Screenin:50 Abuse screen: Self harm. Nutritional screening: No deficits noted. Tuberculosis rb1 screening: No symptoms or risk factors identified. Fall Risk None identified. Assessment: 09:50 General: Appears comfortable, Behavior is anxious, Denies fever, Pt. apologized for rb1 cutting herself. Pt. stated, "After I starting cutting, I realized how dumb it was so I stopped.". 09:50 Neuro: Level of Consciousness is awake, alert, obeys commands, Oriented to person, rb1 place, time, situation. Cardiovascular: Capillary refill < 3 seconds is brisk in bilateral fingers. Respiratory: Airway is patent Respiratory effort is even, unlabored, Respiratory pattern is regular, symmetrical. Derm: Skin is pink, warm \\T\\ dry. Injury Description: Laceration sustained to right lateral aspect of neck is bleeding controlled. Approximately 2-3 inches long. was sustained 1-2 hours ago. no active bleeding noted at this time. 10:50 Reassessment: Patient appears in no apparent distress at this time. Pt. is pacing rb1 beside the bed because she is aggravated. is at bedside. 11:00 Reassessment: Mental Health officers are at bedside speaking with the pt. and her rb1 . 11:00 Reassessment: Mental Health officer suggested to have [facility] to come out to speak rb1 with the pt. They issued a NICO at this time. Provider is aware. 11:50 Reassessment: Patient appears in no apparent distress at this time. Patient and/or rb1 family updated on plan of care and expected duration. Pain level reassessed. Patient is alert, oriented x 3, equal unlabored respirations, skin warm/dry/pink. 12:10 Reassessment: pt. wants to go smoke outside, I explained that we are a smoke free [facility] campus. Notified provider that the pt. requested a Nicotine patch. 13:10 Reassessment: Patient appears in no apparent distress at this time. Patient and/or rb1 family updated on plan of care and expected duration. Pain level reassessed. Patient is alert, oriented x 3, equal unlabored respirations, skin warm/dry/pink. remains at bedside. 14:10 Reassessment: Patient appears in no apparent distress at this time. Patient and/or rb1 family updated on plan of care and expected duration. Pain level reassessed. Patient is alert, oriented x 3, equal unlabored respirations, skin warm/dry/pink. at bedside. 15:10 Reassessment: Patient appears in no apparent distress at this time. No changes from rb1 previously documented assessment. 16:00 Reassessment: ANGELA Powers at [facility] called for nurse to nurse report. All [facility] test results were given as well as the pt. history, medication list, and allergies. Also informed them that the pt. left arm was in a splint and wrapped in an sam bandage due to a broken arm that happened 3 weeks ago. She asked for the ED physician's name (Dr. Carmichael) so they could do a Doctor to Doctor report. All questions asked and answered. 16:15 Reassessment: Patient appears in no apparent distress at this time. Patient and/or rb1 family updated on plan of care and expected duration. Pain level reassessed. Patient is alert, oriented x 3, equal unlabored respirations, skin warm/dry/pink. 17:10 Reassessment: Patient appears in no apparent distress at this time. No changes from rb1 previously documented assessment. Pt. belongings were given to the pt. by DIANN Dorantes tech. Vital Signs: 09:50 Pulse 102; Resp 18; Temp 98.4; Pulse Ox 100% on R/A; em 09:50 BP 151 / 97; rb1 14:48 BP 154 / 67; Pulse 98; Resp 18; Pulse Ox 100% ; ms 16:30 BP 147 / 78; Pulse 91; Resp 17; Pulse Ox 100% on R/A; rb1 ED Course: 09:36 Patient arrived in ED. bd 09:36 Ioana Lopez FNP-C is PHCP. kb 09:36 Rigoberto Carmichael MD is Attending Physician. kb 09:36 Safety Checks: Personal items have been removed. The door is open or patient has been rb1 placed in a hallway bed/chair. There are no family/friend visitors at this time Sitter present at this time. 09:43 Triage completed. ss 09:45 Safety Checks: Personal items have been removed. The door is open or patient has been rb1 placed in a hallway bed/chair. There are no family/friend visitors at this time Sitter present at this time. 09:45 Safety checks: Items removed: yes. Door open/sign placed on door: yes. Family/friend dh3 present: no. Sitter present: Yes. 09:50 Arm band placed on. em 09:50 Patient has correct armband on for positive identification. Placed in gown. Bed in low rb1 position. Call light in reach. Side rails up X 1. 10:00 Safety Checks: Personal items have been removed. The door is open or patient has been rb1 placed in a hallway bed/chair. A family member and/or friend is present and encouraged to stay. Sitter present at this time. 10:00 Safety checks: Items removed: yes. Door open/sign placed on door: yes. Family/friend dh3 present: no. Sitter present: Yes. 10:00 Urine collected: clean catch specimen, clear. dh3 10:05 Initial lab(s) drawn, by me, sent to lab. Inserted saline lock: 22 gauge in right dh3 antecubital area, using aseptic technique. Blood collected. 10:15 Katya Blanca, RN is Primary Nurse. rb1 10:15 Safety Checks: Personal items have been removed. The door is open or patient has been rb1 placed in a hallway bed/chair. A family member and/or friend is present and encouraged to stay. Sitter present at this time. 10:15 Safety checks: Items removed: yes. Door open/sign placed on door: yes. Family/friend dh3 present: yes. Family/friends encouraged to stay with patient. Sitter present: Yes. 10:30 Safety Checks: Personal items have been removed. The door is open or patient has been rb1 placed in a hallway bed/chair. A family member and/or friend is present and encouraged to stay. Sitter present at this time. 10:30 Safety checks: Items removed: yes. Door open/sign placed on door: yes. Family/friend dh3 present: yes. Family/friends encouraged to stay with patient. Sitter present: Yes. 10:33 EKG done, by ED staff, reviewed by Ioana HERMAN. 3 10:34 Wound care: to laceration to right neck cleaned with chlorhexidine and normal saline. 3 10:45 Safety checks: Items removed: yes. Door open/sign placed on door: yes. Family/friend dh3 present: yes. Family/friends encouraged to stay with patient. Sitter present: Yes. 11:00 Safety checks: Items removed: yes. Door open/sign placed on door: yes. Family/friend jp3 present: yes. Family/friends encouraged to stay with patient. Sitter present: Yes. 11:15 Safety checks: Items removed: yes. Door open/sign placed on door: yes. Family/friend jp3 present: yes. Family/friends encouraged to stay with patient. Sitter present: Yes. 11:30 Safety checks: Items removed: yes. Door open/sign placed on door: yes. Family/friend jp3 present: yes. Family/friends encouraged to stay with patient. Sitter present: Yes. 11:45 Safety checks: Items removed: yes. Door open/sign placed on door: yes. Family/friend jp3 present: yes. Family/friends encouraged to stay with patient. Sitter present:. 12:00 Safety checks: Items removed: yes. Door open/sign placed on door: yes. Family/friend jp3 present: yes. Family/friends encouraged to stay with patient. Sitter present: Yes. 12:15 Safety checks: Items removed: yes. Door open/sign placed on door: yes. Family/friend jp3 present: yes. Family/friends encouraged to stay with patient. Sitter present: Yes. 12:30 Safety checks: Items removed: yes. Door open/sign placed on door: yes. Family/friend jp3 present: yes. Family/friends encouraged to stay with patient. Sitter present: Yes. 12:45 Safety checks: Items removed: yes. Door open/sign placed on door: yes. Family/friend jp3 present: yes. Family/friends encouraged to stay with patient. Sitter present: Yes. 13:00 Safety checks: Items removed: yes. Door open/sign placed on door: yes. Family/friend jp3 present: yes. Family/friends encouraged to stay with patient. Sitter present: Yes. 13:15 Safety checks: Items removed: yes. Door open/sign placed on door: yes. Family/friend jp3 present: yes. Family/friends encouraged to stay with patient. Sitter present: Yes. 13:30 Safety checks: Items removed: yes. Door open/sign placed on door: yes. Family/friend jp3 present: yes. Family/friends encouraged to stay with patient. Sitter present: Yes. 13:30 Safety checks: Items removed: yes. Door open/sign placed on door: yes. Family/friend ms present: yes. Family/friends encouraged to stay with patient. Sitter present: Yes. 13:45 Safety checks: Items removed: yes. Door open/sign placed on door: yes. Family/friend ms present: yes. Family/friends encouraged to stay with patient. Sitter present: Yes. 14:00 Safety checks: Items removed: yes. Door open/sign placed on door: yes. Family/friend ms present: yes. Family/friends encouraged to stay with patient. Sitter present: Yes. 14:15 Safety checks: Items removed: yes. Door open/sign placed on door: yes. Family/friend ms present: yes. Family/friends encouraged to stay with patient. Sitter present: Yes. 14:30 Safety checks: Items removed: yes. Door open/sign placed on door: yes. Family/friend ms present: yes. Family/friends encouraged to stay with patient. Sitter present: Yes. 14:45 Safety checks: Items removed: yes. Door open/sign placed on door: yes. Family/friend ms present: yes. Family/friends encouraged to stay with patient. Sitter present: Yes. 14:56 Repeat lab(s) drawn. by me, sent to lab. counts include 234 beds at the [facility] 15:00 Safety checks: Items removed: yes. Door open/sign placed on door: yes. Family/friend ms present: yes. Family/friends encouraged to stay with patient. Sitter present: Yes. 15:15 Safety checks: Items removed: yes. Door open/sign placed on door: yes. Family/friend ms present: yes. Family/friends encouraged to stay with patient. Sitter present: Yes. 15:30 Safety checks: Items removed: yes. Door open/sign placed on door: yes. Family/friend ms present: yes. Family/friends encouraged to stay with patient. Sitter present: Yes. 15:45 Safety checks: Items removed: yes. Door open/sign placed on door: yes. Family/friend ms present: yes. Family/friends encouraged to stay with patient. Sitter present: Yes. 16:00 Safety checks: Items removed: yes. Door open/sign placed on door: yes. Family/friend ms present: yes. Family/friends encouraged to stay with patient. Sitter present: Yes. 16:15 Safety checks: Items removed: yes. Door open/sign placed on door: yes. Family/friend ms present: yes. Family/friends encouraged to stay with patient. Sitter present: Yes. 16:30 Safety checks: Items removed: yes. Door open/sign placed on door: yes. Family/friend ms present: no. Sitter present: Yes. 16:45 Safety checks: Items removed: yes. Door open/sign placed on door: yes. Family/friend ms present: no. Sitter present: Yes. 17:00 Safety Checks: Personal items have been removed. The door is open or patient has been rb1 placed in a hallway bed/chair. A family member and/or friend is present and encouraged to stay. Sitter present at this time. 17:15 Safety Checks: Personal items have been removed. The door is open or patient has been rb1 placed in a hallway bed/chair. A family member and/or friend is present and encouraged to stay. Sitter present at this time. 17:30 Safety Checks: Personal items have been removed. The door is open or patient has been rb1 placed in a hallway bed/chair. A family member and/or friend is present and encouraged to stay. Sitter present at this time. 17:41 No provider procedures requiring assistance completed. IV discontinued, intact, rb1 bleeding controlled, No redness/swelling at site. Pressure dressing applied. Administered Medications: 11:33 Drug: NS 0.9% 1000 ml Route: IV; Rate: 1000 ml; Site: right antecubital; rb1 12:16 Drug: Nicoderm CQ 21 mg/24 hr 21 mg {Note: Left upper back.} Route: Transdermal; Site: rb1 affected area; 12:25 Drug: Zofran 4 mg Route: IVP; Site: right antecubital; rb1 12:40 Follow up: Response: No adverse reaction; Nausea is decreased rb1 12:35 Drug: NS 0.9% 1000 ml Route: IV; Rate: 1000 ml; Site: right antecubital; rb1 15:51 Drug: NS 0.9% 1000 ml Route: IV; Rate: 1000 ml; Site: right antecubital; rb1 17:11 Follow up: IV Status: Completed infusion rb1 Outcome: 17:19 ER care complete, transfer ordered by . kb 17:41 Patient left the ED. rb1 17:41 Transferred by ground EMS Transfer form completed. Note: [facility] 17:41 Condition: stable 17:41 Instructed on the need for transfer. Signatures: Ioana Lopez, FLOOR PERSON-C FLOOR PERSON-Ckb Kaylin Montes Edgar, PARATRANSIT DRIVER PARATRANSIT DRIVER em Jayna Villatoro ms, Shelby, RN RN Katya Blanca RN RN [facility] Mesha Lara counts include 234 beds at the [facility] Carlos Manning [facility] Corrections: (The following items were deleted from the chart) 10:24 09:41 General: See triage assessment. [place] [id number] 10:33 10:15 Inserted saline lock: 22 gauge in right antecubital area, using aseptic counts include 234 beds at the [facility] technique. Blood collected. counts include 234 beds at the [facility] 10:33 10:15 Initial lab(s) drawn, by ma, sent to lab. [place] [id number] 13:32 13:00 Safety checks: Items removed: yes. Door open/sign placed on door: yes. [facility] Family/friend present: yes. Sitter present: Yes. [facility] 16:48 16:45 Safety checks: Items removed: yes. Door open/sign placed on door: yes. ms Family/friend present: yes. Sitter present: Yes. ms
--- NOTE | 2018-08-07 07:03 | EKG ---
Test Date: 2018-08-06 Test Time: 10:23:31 Urban Renewal Manager: SCARLET MEASUREMENT RESULTS: Intervals: Rate: 97 DE: 150 QRSD: 64 QT: 364 QTc: 462 [place]: P: 45 DE: 150 QRS: 54 T: 73 INTERPRETIVE STATEMENTS: Normal sinus rhythm Left ventricular hypertrophy with repolarization abnormality Abnormal ECG Compared to ECG 06/02/2018 15:57:05 Early repolarization now present Sinus tachycardia no longer present Electronically Signed On 08-07-18 07:01:18 CDT by Edil Grace
== END 2018-08-06 17:41 ==
LOC: ER 09:34
PROC: 0HQ4XZZ Repair Neck Skin, External Approach (ICD-10-PCS; principal; 2018-08-06)
DX: S11.91XA Laceration without foreign body of unspecified part of neck, initial encounter (principal); X78.1XXA Intentional self-harm by knife, initial encounter; Y92.008 Other place in unspecified non-institutional (private) residence as the place of occurrence of the external cause; M54.9 Dorsalgia, unspecified; G89.29 Other chronic pain; N95.9 Unspecified menopausal and perimenopausal disorder; E78.5 Hyperlipidemia, unspecified; I10 Essential (primary) hypertension; F90.9 Attention-deficit hyperactivity disorder, unspecified type; F17.210 Nicotine dependence, cigarettes, uncomplicated
CPT/HCPCS: 36415; 80048; 80076; 80307; 80320; 80329; 81003; 85025; 85610; 85730; 93005; 96361; 96374; 99285; J2405; J7030

== ENCOUNTER 2018-10-16 19:14 | Emergency (ER) | payer BC ==
--- OUTSIDE RECORDS SUMMARY | 2018-10-16 19:17 | XMS REPORT | Clinical Summary ---
:1965 Author Organization [facility] Address [address] [place] [address] Care Team Providers Name Role Phone Provider, Unknown Primary Care Provider Unavailable Allergies Active Allergy Reactions Severity Noted Date Comments Betadine Surgi-Prep Hives, Rash Low 03/31/2016 Patient reports blistering and rash Patient reports blistering and rash Dye 01/04/2018 Radiology DYE Contrast Medications Medication Sig Dispensed Refills Start Date End Date Status zolpidem (AMBIEN) 5 Take 5 mg by 0 Active MG tablet mouth nightly as needed for sleep. gabapentin Take 600 mg by 0 Active (NEURONTIN) 600 mg mouth 3 (three) tablet times a day. morPHINE (MSIR) 15 Take 15 mg by 0 Active MG tablet mouth every 12 (twelve) hours as needed for severe pain. oxyCODone Take 10 mg by 0 Active (ROXICODONE) 10 MG mouth every 6 tablet (six) hours as needed for moderate pain. tiZANidine Take 4 mg by 0 Active (ZANAFLEX) 4 MG mouth every 8 tablet (eight) hours as needed for muscle spasms. ondansetron ODT Take 4 mg by 0 Active (ZOFRAN-ODT) 4 MG mouth every 8 disintegrating (eight) hours as tablet needed for nausea or vomiting. atorvastatin Take 1 tablet by 2 01/11/2018 Active (LIPITOR) 20 MG mouth daily. tablet pantoprazole Take 1 tablet by 0 01/05/2018 Active (PROTONIX) 40 MG EC mouth daily. tablet diazePAM (VALIUM) 5 Take 5 mg by 0 01/04/20 Discontinued MG tablet mouth every 6 18 (six) hours as needed for anxiety. morPHINE (MSIR) 15 Take 1 tablet (15 0 10/06/2017 10/21/20 MG tablet mg total) by 17 mouth every 12 (twelve) hours for 15 days Earliest Fill Date: 10/06/17. Max Daily Amount: 30 mg atorvastatin Take 1 tablet (40 30 tablet 0 10/06/2017 11/05/20 (LIPITOR) 40 MG mg total) by 17 tablet mouth nightly for 30 days. benzonatate Take 1 capsule 0 10/06/2017 11/05/20 (TESSALON) 100 MG (100 mg [...] nafcillin (UNIPEN) Infuse 2 g into a 0 10/06/2017 10/23/20 2 grams in 100 mL venous catheter 17 Mini-Bag Plus every 4 (four) hours for 17 days. nystatin Apply topically 2 15 g 0 10/06/2017 11/05/20 (MYCOSTATIN) (two) times a day 17 100,000 unit/gram as needed (fungal powder infections) for up to [address] 2 patches 30 patch 0 10/06/2017 11/05/20 (LIDODERM) 5 % on the skin daily 17 for 30 days. Remove & Discard patch within 12 hours or as directed by [facility] 80-4.5 Inhale 2 puffs 2 4 11/05/2017 01/19/20 Discontinued mcg/actuation (two) times a 18 inhaler day. Active Problems Problem Noted Date Gastroesophageal reflux disease 01/20/2018 Cavitary lesion of lung 01/04/2018 Hemoptysis 01/04/2018 History of tobacco use 01/04/2018 Chronic obstructive pulmonary disease 01/04/2018 Septic shock 09/25/2017 Acute respiratory failure 09/25/2017 Hyponatremia 09/25/2017 Elevated troponin 09/25/2017 Encounters Date Type Specialty Care Team Description 08/06/2018 Intake Access N/A 01/19/2018 Office Visit Pulmonology Ravi Abreu, Chronic obstructive pulmonary disease, unspecified COPD type (Primary Dx); Cavitary lesion of lung; History of tobacco use; Gastroesophageal reflux disease, esophagitis presence not specified 01/19/2018 Clinical Support Pulmonology Melisa Hernandez Cavitary lesion of lung; Hemoptysis 01/19/2018 Hospital Encounter Radiology Ravi Abreu, Cavitary lesion of lung; Hemoptysis 01/04/2018 Office Visit Pulmonology Ravi Abreu, Cavitary lesion of lung (Primary Dx); Hemoptysis; History of tobacco abuse; Chronic obstructive pulmonary disease, unspecified COPD type 01/04/2018 Hospital Encounter Radiology Bernardino Shah MD Pneumonia, organism unspecified(486); Postoperative septicemia 01/04/2018 Transcribe Orders Radiology Bernardino Shah MD Pneumonia, organism unspecified(486) (Primary Dx); Postoperative septicemia after 10/15/2017 Immunizations Name Dates Previously Given Next Due FLUCELVAX QUAD PF (0.5mL syringe) 10/06/2017 Pneumococcal Conjugate 13-Valent 10/06/2017 Social History Tobacco Use Types Packs/Day Years Used Date Former Smoker Cigarettes 0.5 7 Quit: 08/28/2017 Smokeless Tobacco: Never Used Tobacco Cessation: Ready to Quit: Yes; Counseling Given: Yes Alcohol Use Drinks/Week oz/Week Comments No Sex Assigned at Date Recorded Not on file Job Start Date Occupation Industry Not on file Not on file Not on file Travel History Travel Start Travel End No recent travel history available. Last Filed Vital Signs Vital Sign Reading Time Taken Blood Pressure 124/76 01/19/2018 11:58 AM [employer] Pulse 62 01/19/2018 11:58 AM [employer] Temperature 36.3 C (97.4 F) 01/19/2018 11:58 AM [employer] Respiratory Rate - - Oxygen Saturation 100% 01/19/2018 11:58 AM [employer] Inhaled Oxygen Concentration - - Weight 62.1 kg (137 lb) 01/19/2018 11:58 AM [employer] Height 163.8 cm (5' 4.5") 01/19/2018 11:58 AM [employer] Body Mass Index 23.15 01/19/2018 11:58 AM [employer] Plan of Treatment Health Maintenance Due Date Last Done Comments MMR VACCINES (1 of 1 - 1965 Standard series) VARICELLA VACCINES (1 of 2 - 1977 2-dose adolescent series) CERVICAL CANCER SCREENING 1985 BREAST CANCER SCREENING 2014 SHINGRIX VACCINE (1 of 2) 2014 INFLUENZA VACCINE 06/28/2018 10/06/2017 COLON CANCER SCREENING 10/06/2027 10/06/2017, 09/26/2017 HEPATITIS B VACCINES Aged Out No longer eligible based on patient's age to complete this topic IPV VACCINES Aged Out No longer eligible based on patient's age to complete this topic MENINGOCOCCAL VACCINE Aged Out No longer eligible based on patient's age to complete this topic Implants Implanted Type 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 XR CHEST 2 VW Routine 01/04/2018 12:09 PM Pneumonia, organism Results for this [employer] unspecified(486) procedure are in Postoperative the results septicemia section. after 10/15/[address] Chest Wo Contrast (01/19/2018 9:26 AM [employer]) Narrative Performed At EXAMINATION: CT CHEST WO [...] intact. A spinal stimulator is partially imaged. [facility]-[id number] Procedure Note Hm Interface, Radiology Results Incoming - 01/19/2018 9:58 AM [employer] EXAMINATION: CT CHEST WO CONTRAST CLINICAL HISTORY: [...] intact. A spinal stimulator is partially imaged. [facility]-[id number] Performing Organization Address City/State/Zipcode Phone Number [facility] [address] [place] [address] XR Chest 2 Vw (01/04/2018 12:09 PM [employer]) Narrative Performed At EXAMINATION:[facility] CLINICAL H[facility]:J18.9 Pneumoniaunspecified organism, T81.4XXA Infection following a procedureinitial encounter, j18.9 COMPARISON:Chest x-ray 10/05/2017 IMPRESSION: Frontal and lateral views reveal a stable cardiomediastinal silhouette. Thoracic spinal cord simulator remains in place. Improved aeration has occurred throughout the lungs though coarse interstitial markings persist. Pleural margins are sharp. The remainder of the examination is unremarkable. [facility]-[id number] Procedure Note Interface, Radiology Results Incoming - 01/04/2018 12:19 PM [employer] EXAMINATION: XR CHEST 2 VW CLINICAL HISTORY: J18.9 Pneumonia unspecified organism, T81.4XXA Infection following a procedure initial encounter, j18.9 COMPARISON: Chest x-ray 10/05/2017 IMPRESSION: Frontal and lateral views reveal a stable cardiomediastinal silhouette. Thoracic spinal cord simulator remains in place. Improved aeration has occurred throughout the lungs though coarse interstitial markings persist. Pleural margins are sharp. The remainder of the examination is unremarkable. [facility]-[id number] Performing Organization Address City/State/Zipcode Phone Number [facility] [phone] [place] [address] after 10/15/2017 Insurance Payer Benefit Plan / Group Subscriber ID Type Phone Address BCBS BCBS CHOICE PPO/FEDERAL EMPL PPO xxxxxxxxxxxx PPO Advance Directives Patient has advance care planning documents on file. For more information, please contact:Mannie Livingston[address] [place] [address]
[2018-10-16] MEDS ORDERED: ONDANSETRON 4 MG/2 ML VIAL ONE (20:27)
[2018-10-16] MEDS ORDERED: NA CHLORIDE 0.9% 1,000 ML ONE (20:27)
[2018-10-16 20:32] LABS: Absolute Lymphocytes (CBC) 2.6 K/uL (0.7-4.9); Absolute Monocytes 0.9 K/uL (0.1-1.3); Absolute Neutrophil 8.8 K/uL (1.8-8.0); Basophils % 0.4 % (0-1.3); Eosinophils % 0.6 % (0-4.4); Hematocrit 38.3 % (36.0-45.0); MCV 93.1 fL (80-100); MPV 7.8 fL (7.6-11.3); Monocytes % 7.1 % (3.3-12.3); RBC Red Blood Cell Count 4.12 M/uL (3.86-4.86)
--- NOTE | 2018-10-16 20:42 | RAD REPORT ---
EXAM DESCRIPTION: CT - Abdomen Pelvis Wo Contrast - 10/16/2018 8:30 pm CLINICAL HISTORY: Abdominal pain. ABD PAIN COMPARISON: CT ABD PELVIS W CONTRAST dated 02/03/2016 TECHNIQUE: CT imaging of the abdomen and pelvis was performed without contrast. Solid organ, bowel a nd vascular assessment is limited due to lack of IV and oral contrast. All CT scans are performed using dose optimization technique as appropriate and may include automated exposure control or mA/KV adjustment according to patient size. FINDINGS: The lower lung lopez are clear. The liver, spleen, pancreas, adrenal glands and kidneys are within normal limits for a limited non-co ntrast examination. No bowel obstruction, free air, free fluid or abscess. The appendix is normal. The osseous structures are within normal limits. IMPRESSION: No acute intra-abdominal or pelvic findings. A limited non-contrast examination was performed as detailed.
[2018-10-16 20:48] LABS: Albumin 3.5 g/dL (3.4-5.0); Bilirubin Direct 0.1 mg/dL (0-0.2); Bilirubin Total 0.3 mg/dL (0.2-1.0)
[2018-10-16] MEDS ORDERED: POTASSIUM 25 MEQ EFFERV TAB ONE (21:49)
[2018-10-16 22:13] LABS: Magnesium 1.7 mg/dL (1.8-2.4); Phosphorus 2.9 mg/dL (2.5-4.9)
--- NOTE | 2018-10-17 00:14 | EDPHYS ---
Physician Documentation [facility] Name: Pratibha Jennings Age: 53 yrs Sex: Female : 1965 Arrival Date: 10/16/2018 Time: 19:20 Bed 13 Private MD: Von Chaves C ED Physician Nabil Garnt HPI: 10/16 21:24 This 53 yrs old Female presents to ER via Ambulatory with complaints of abd gs pain/vomiting. 21:24 The patient presents with abdominal pain in the upper abdomen. Onset: The gs symptoms/episode began/occurred 1 month(s) ago. The symptoms do not radiate. Associated signs and symptoms: Pertinent positives: vomiting. The symptoms are described as constant, crampy. Modifying factors: The symptoms are alleviated by nothing, the symptoms are aggravated by nothing. Severity of pain: At its worst the pain was moderate in the emergency department the pain is unchanged. The patient has experienced similar episodes in the past, a few times. The patient has been recently seen by a physician: the patient's primary care provider. 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 LMP N/A - Post-menopause aj1 Historical: - Allergies: 19:30 Iodine; topical; aj1 - Home Meds: 19:30 gabapentin 600 mg Oral tab 1 tab daily [Active]; atorvastatin oral oral [Active]; aj1 Protonix Oral [Active]; Ambien 5 mg Oral tab 1 tab once daily [Active]; lidocaine patch [Active]; Propranolol Oral [Active]; amlodipine oral [Active]; morphine 15 mg Oral tab 1 tab every 4 hours [Active]; Neurontin 600 mg Oral tab 1 tab daily [Active]; oxycodone-acetaminophen 10-650 mg Oral tab 1 tab every 6 hours [Active]; tizanidine 4 mg Oral cap 1 cap [Active]; Zofran Oral [Active]; 19:31 Hydroxyzine Oral [Active]; Fluoxetine Oral [Active]; aj1 - PMHx: 19:30 ADD/ADHD; Back pain; Chronic pain; Degenerative disc disease; Hyperlipidemia; aj1 Hypertension; - Immunization history:: Flu vaccine is not up to date. - Social history:: Smoking status: Patient uses tobacco products, smokes one-half pack cigarettes per day. - Ebola Screening: : Patient denies travel to an Ebola-affected area in the 21 days before illness onset. ROS: 21:24 All other systems are negative. gs 21:26 Cardiovascular: Negative for chest pain. gs 21:26 Respiratory: Negative for shortness of breath. Exam: 21:24 Head/Face: Normocephalic, atraumatic. Eyes: Pupils equal round and reactive to light, gs extra-ocular motions intact. Lids and lashes normal. Conjunctiva and sclera are non-icteric and not injected. Cornea within normal limits. Periorbital areas with no swelling, redness, or edema. ENT: Nares patent. No nasal discharge, no septal abnormalities noted. Tympanic membranes are normal and external auditory canals are clear. Oropharynx with no redness, swelling, or masses, exudates, or evidence of obstruction, uvula midline. Mucous membranes moist. Neck: Trachea midline, no thyromegaly or masses palpated, and no cervical lymphadenopathy. Supple, full range of motion without nuchal rigidity, or vertebral point tenderness. No Meningismus. Chest/axilla: Normal chest wall appearance and motion. Nontender with no deformity. No lesions are appreciated. Cardiovascular: Regular rate and rhythm with a normal S1 and S2. No gallops, murmurs, or rubs. Normal PMI, no JVD. No pulse deficits. Respiratory: Lungs have equal breath sounds bilaterally, clear to auscultation and percussion. No rales, rhonchi or wheezes noted. No increased work of breathing, no retractions or nasal flaring. Back: No spinal tenderness. No costovertebral tenderness. Full range of motion. Skin: Warm, dry with normal turgor. Normal color with no rashes, no lesions, and no evidence of cellulitis. MS/ Extremity: Pulses equal, no cyanosis. Neurovascular intact. Full, normal range of motion. Neuro: Awake and alert, GCS 15, oriented to person, place, time, and situation. Cranial nerves II-XII grossly intact. Motor strength 5/5 in all extremities. Sensory grossly intact. Cerebellar exam normal. Normal gait. 21:24 Constitutional: The patient appears alert, awake. 21:24 Abdomen/GI: Palpation: mild abdominal tenderness, in the right upper quadrant, left upper quadrant, right lower quadrant and left lower quadrant. Vital Signs: 19:31 BP 148 / 108; Pulse 114; Resp 20; Temp 98.4; Pulse Ox 98% on R/A; Weight 49.44 kg (R); aj1 Height 5 ft. 5 in. (165.10 cm) (R); Pain 6/10; 20:53 BP 146 / 77; Pulse 84; Resp 16; Pulse Ox 100% on R/A; jb4 21:51 BP 159 / 81; Pulse 86; Resp 16; Pulse Ox 100% on R/A; jb4 22:45 BP 143 / 85; Pulse 97; Resp 18; Pulse Ox 100% on R/A; jb4 23:45 BP 155 / 99; Pulse 88; Pulse Ox 97% on R/A; jb4 10/17 00:29 BP 142 / 89; Pulse 78; Pulse Ox 100% on R/A; jb4 10/16 19:31 Body Mass Index 18.14 (49.44 kg, 165.10 cm) aj1 MDM: 10/16 19:51 Patient medically screened. gs 21:24 Differential diagnosis: bowel obstruction, non-specific abd pain, pancreatitis. Data gs reviewed: vital signs, nurses notes. 10/16 19:53 Order name: Basic Metabolic Panel 10/16 19:53 Order name: CBC with Diff 10/16 19:53 Order name: Hepatic Function 10/16 19:53 Order name: Lipase 10/16 20:35 Order name: CBC with Automated Diff; Complete Time: 21:23 EDIN 10/16 21:23 Order name: Basic Metabolic Panel; Complete Time: 21:26 EDIN 10/16 19:56 Order name: CT Abd/Pelvis - Without Cont 10/16 21:23 Order name: CT; Complete Time: 21:26 EDIN 10/16 21:23 Order name: Liver (Hepatic) Function; Complete Time: 21:26 EDIN 10/16 21:23 Order name: Lipase; Complete Time: 21:26 EDIN 10/16 21:27 Order name: Magnesium 10/16 21:27 Order name: Phosphorus 10/16 22:13 Order name: Phosphorus [facility] 10/16 22:13 Order name: Magnesium [facility] 10/16 19:53 Order name: IV Saline Lock; Complete Time: 20:18 10/16 19:53 Order name: Labs collected and sent; Complete Time: 20:18 gs Administered Medications: 20:27 Drug: Zofran 4 mg Route: IVP; Site: right antecubital; jb4 20:55 Follow up: Response: No adverse reaction; Nausea is decreased jb4 20:27 Drug: NS 0.9% 1000 ml Route: IV; Rate: 1 bolus; Site: right antecubital; jb4 21:45 Follow up: Response: No adverse reaction; IV Status: Completed infusion jb4 21:45 Drug: Potassium Effervescent Tablet 50 mEq Route: PO; jb4 22:30 Follow up: Response: No adverse reaction jb4 Disposition: 10/17/18 00:14 Discharged to Home. Impression: Hypokalemia, Vomiting, unspecified. - Condition is Stable. - Discharge Instructions: Nausea and Vomiting, Adult, Hypokalemia. - Prescriptions for Zofran 4 mg Oral Tablet - take 1 tablet by ORAL route every 12 hours As needed; 6 tablet. - Medication Reconciliation Form, Thank You Letter, Antibiotic Education, Prescription Opioid Use form. - Problem is new. - Symptoms have improved. Signatures: Dispatcher [employer] EDMS Dionna Chinchilla RN RN aj1 Chucho Cooper RN RN jb4 Nabil Grant MD MD Wayne Mercer MD MD tw4 Corrections: (The following items were deleted from the chart) 10/17 00:32 00:14 10/17/2018 00:14 Discharged to Home. Impression: Hypokalemia; Vomiting, jb4 unspecified. Condition is Stable. Forms are Medication Reconciliation Form, Thank You Letter, Antibiotic Education, Prescription Opioid Use. Problem is new. Symptoms have improved. tw4
--- NOTE | 2018-10-17 00:14 | ER ---
Nurse's Notes [facility] Name: Pratibha Jennings Age: 53 yrs Sex: Female : 1965 Arrival Date: 10/16/2018 Time: 19:20 Bed 13 Private MD: Von Chaves C Diagnosis: Hypokalemia;Vomiting, unspecified Presentation: 10/16 19:24 Presenting complaint: Patient states: "The last couple of weeks I've been vomiting aj1 constantly. I have no appetite. I've lost 21 pounds, I'm shaky, dizzy. I have abdominal pains and my heart races kind of fast sometimes. My temperature has been 97, but I feel like I'm burning up." She was seen at Dr. Chaves's office today and he recommended her to come to the emergency room. Transition of care: patient was not received from another setting of care. Onset of symptoms. Onset of symptoms was August 2018. Risk Assessment: Do you want to hurt yourself or someone else? Patient reports no desire to harm self or others. Initial Sepsis Screen: Does the patient meet any 2 criteria? HR > 90 bpm. No. Patient's initial sepsis screen is negative. Does the patient have a suspected source of infection? Yes: Acute abdominal pain. Care prior to arrival: None. 19:24 Method Of Arrival: Ambulatory aj 19:24 Acuity: NUSRAT 3 aj1 Triage Assessment: 19:31 General: Appears in no apparent distress. comfortable, Behavior is calm, cooperative, aj1 appropriate for age. Pain: Complains of pain in back, abdomen and left wrist Pain currently is 6 out of 10 on a pain scale. Neuro: Level of Consciousness is awake, alert, obeys commands. Cardiovascular: Patient's skin is warm and dry. Respiratory: Airway is patent Respiratory effort is even, unlabored, Respiratory pattern is regular, symmetrical. COMPLAINTS COORDINATOR: 19:31 LMP N/A - Post-menopause aj1 Historical: - Allergies: 19:30 Iodine; topical; aj1 - Home Meds: 19:30 gabapentin 600 mg Oral tab 1 tab daily [Active]; atorvastatin oral oral [Active]; aj1 Protonix Oral [Active]; Ambien 5 mg Oral tab 1 tab once daily [Active]; lidocaine patch [Active]; Propranolol Oral [Active]; amlodipine oral [Active]; morphine 15 mg Oral tab 1 tab every 4 hours [Active]; Neurontin 600 mg Oral tab 1 tab daily [Active]; oxycodone-acetaminophen 10-650 mg Oral tab 1 tab every 6 hours [Active]; tizanidine 4 mg Oral cap 1 cap [Active]; Zofran Oral [Active]; 19:31 Hydroxyzine Oral [Active]; Fluoxetine Oral [Active]; aj1 - PMHx: 19:30 ADD/ADHD; Back pain; Chronic pain; Degenerative disc disease; Hyperlipidemia; aj1 Hypertension; - Immunization history:: Flu vaccine is not up to date. - Social history:: Smoking status: Patient uses tobacco products, smokes one-half pack cigarettes per day. - Ebola Screening: : Patient denies travel to an Ebola-affected area in the 21 days before illness onset. Screenin:52 Abuse screen: Denies threats or abuse. Nutritional screening: Had unintentional weight jb4 loss of 10 pounds or more. Tuberculosis screening: No symptoms or risk factors identified. Fall Risk None identified. Assessment: 19:52 General: Appears in no apparent distress. uncomfortable, Behavior is calm, cooperative, jb4 appropriate for age. Pain: Complains of pain in abdomen Pain does not radiate. Pain currently is 6 out of 10 on a pain scale. Quality of pain is described as aching. Neuro: Level of Consciousness is awake, alert, obeys commands, Oriented to person, place, time, situation. Cardiovascular: Patient's skin is warm and dry. Respiratory: Airway is patent Respiratory effort is even, unlabored, Respiratory pattern is regular, symmetrical. GI: Abdomen is flat, non-distended, Bowel sounds present X 4 quads. Abd is soft X 4 quads Abdomen is tender to palpation X 4 quads. Reports lower abdominal pain, upper abdominal pain, constipation, nausea, vomiting. : No signs and/or symptoms were reported regarding the genitourinary system. EENT: No signs and/or symptoms were reported regarding the EENT system. Derm: Skin is intact, Skin is pink, warm \\T\\ dry. Musculoskeletal: Circulation, motion, and sensation intact. 20:53 Reassessment: Patient appears in no apparent distress at this time. Patient and/or jb4 family updated on plan of care and expected duration. Pain level reassessed. Patient is alert, oriented x 3, equal unlabored respirations, skin warm/dry/pink. family at the bedside. PT reports a decrease in nausea. Patient states feeling better. 21:51 Reassessment: Patient appears in no apparent distress at this time. Patient and/or jb4 family updated on plan of care and expected duration. Pain level reassessed. Patient is alert, oriented x 3, equal unlabored respirations, skin warm/dry/pink. Patient states feeling better. 22:45 Reassessment: Patient appears in no apparent distress at this time. Patient and/or jb4 family updated on plan of care and expected duration. Pain level reassessed. Patient is alert, oriented x 3, equal unlabored respirations, skin warm/dry/pink. Pt reports an increase in nausea, provider notified. 10/17 00:04 Reassessment: Patient appears in no apparent distress at this time. Patient and/or jb4 family updated on plan of care and expected duration. Pain level reassessed. Patient is alert, oriented x 3, equal unlabored respirations, skin warm/dry/pink. 00:29 Reassessment: Patient appears in no apparent distress at this time. Patient and/or jb4 family updated on plan of care and expected duration. Pain level reassessed. Patient is alert, oriented x 3, equal unlabored respirations, skin warm/dry/pink. Vital Signs: 10/16 19:31 BP 148 / 108; Pulse 114; Resp 20; Temp 98.4; Pulse Ox 98% on R/A; Weight 49.44 kg (R); aj1 Height 5 ft. 5 in. (165.10 cm) (R); Pain 6/10; 20:53 BP 146 / 77; Pulse 84; Resp 16; Pulse Ox 100% on R/A; jb4 21:51 BP 159 / 81; Pulse 86; Resp 16; Pulse Ox 100% on R/A; jb4 22:45 BP 143 / 85; Pulse 97; Resp 18; Pulse Ox 100% on R/A; jb4 23:45 BP 155 / 99; Pulse 88; Pulse Ox 97% on R/A; jb4 10/17 00:29 BP 142 / 89; Pulse 78; Pulse Ox 100% on R/A; jb4 10/16 19:31 Body Mass Index 18.14 (49.44 kg, 165.10 cm) [facility] ED Course: 10/16 19:20 Patient arrived in ED. am2 19:21 Von Chaves MD is Private Physician. am2 19:27 Triage completed. aj1 19:31 Arm band placed on Patient placed in an exam room. aj1 19:37 Chucho Cooper, RN is Primary Nurse. jb4 19:41 Nabil Grant MD is Attending Physician. gs 20:00 Patient has correct armband on for positive identification. Bed in low position. Side jb4 rails up X 1. Pulse ox on. NIBP on. 20:05 Initial lab(s) drawn, by ok, sent to lab. Inserted saline lock: 22 gauge in right jb4 forearm, using aseptic technique. Blood collected. Missed attempt(s): 22 gauge in right antecubital area. 20:[address] nj 20:30 CT completed. Patient tolerated procedure well. Patient moved back from CT. nj 21:02 Basic Metabolic Panel Sent. mw2 21:02 CBC with Diff Sent. mw2 21:02 Hepatic Function Sent. mw2 21:02 Lipase Sent. mw2 21:54 Phosphorus Sent. mw2 21:54 Magnesium Sent. mw2 22:22 CT Abd/Pelvis - Without Cont Sent. mw2 10/17 00:31 No provider procedures requiring assistance completed. jb4 00:31 IV discontinued, intact, bleeding controlled. jb4 Administered Medications: 10/16 20:27 Drug: Zofran 4 mg Route: IVP; Site: right antecubital; jb4 20:55 Follow up: Response: No adverse reaction; Nausea is decreased jb4 20:27 Drug: NS 0.9% 1000 ml Route: IV; Rate: 1 bolus; Site: right antecubital; jb4 21:45 Follow up: Response: No adverse reaction; IV Status: Completed infusion jb4 21:45 Drug: Potassium Effervescent Tablet 50 mEq Route: PO; jb4 22:30 Follow up: Response: No adverse reaction jb4 Outcome: 10/17 00:14 Discharge ordered by . tw4 00:31 Discharged to home ambulatory. jb4 00:31 Condition: stable 00:31 Discharge instructions given to patient, family, Instructed on discharge instructions, follow up and referral plans. medication usage, Demonstrated understanding of instructions, follow-up care, medications, Prescriptions given X 1. 00:32 Patient left the ED. jb4 Signatures: Dionna Chinchilla RN RN aj1 Chucho Cooper RN RN jb4 Joaquin Peck Amanda am2 Nabil Grant MD MD Wayne Mercer MD MD tw4 Finn Galeano mw2 Corrections: (The following items were deleted from the chart) 10/16 20:55 20:53 Reassessment: Patient appears in no apparent distress at this time. Patient jb4 and/or family updated on plan of care and expected duration. Pain level reassessed. Patient is alert, oriented x 3, equal unlabored respirations, skin warm/dry/pink. family at the bedside. Patient states feeling better. jb4
[2018-10-17] MEDS ORDERED: ONDANSETRON 4 MG/2 ML VIAL ONE (00:20)
== END 2018-10-17 00:32 | disposition home or self-care (01) ==
LOC: ER 19:14
DX: E87.6 Hypokalemia (principal); F17.210 Nicotine dependence, cigarettes, uncomplicated; I10 Essential (primary) hypertension; E78.5 Hyperlipidemia, unspecified; F90.9 Attention-deficit hyperactivity disorder, unspecified type; Z91.048 Other nonmedicinal substance allergy status
CPT/HCPCS: 36415; 74176; 80048; 80076; 83690; 83735; 84100; 85025; 96361; 96374; 99284; J2405; J7030

== ENCOUNTER 2018-10-26 22:22 | Emergency (ER) | payer BC ==
--- OUTSIDE RECORDS SUMMARY | 2018-10-26 22:24 | XMS REPORT | Clinical Summary ---
:1965 Author Organization [facility] Address [address] [place] [address] Care Team Providers Name Role Phone Provider, [...] 18 (six) hours as needed for anxiety. atorvastatin Take 1 tablet (40 30 tablet [...] 4 (four) nebulizer hours for 30 days. nystatin Apply topically 2 [...] organism unspecified(486) (Primary Dx); Postoperative septicemia after 10/25/2017 Immunizations Name Dates Previously Given Next Due [...] Taken Blood Pressure 124/76 01/19/2018 11:58 AM [employer] Pulse 62 01/19/2018 11:58 AM [employer] Temperature 36.3 C (97.4 F) 01/19/2018 11:58 AM [employer] Respiratory Rate - - Oxygen Saturation 100% 01/19/2018 11:58 AM [employer] Inhaled Oxygen Concentration - - Weight 62.1 kg (137 lb) 01/19/2018 11:58 AM [employer] Height 163.8 cm (5' 4.5") 01/19/2018 11:58 AM [employer] Body Mass Index 23.15 01/19/2018 11:58 AM [employer] Plan of Treatment Health Maintenance Due Date [...] complete this topic Implants Implanted Type Area Experimental Electronics Developer Device Shelf Model / Serial Identifier Expiration Date / Lot Stimulator Stimulator [employer] / / Procedures Procedure Name Priority Date/Time Associated Diagnosis Comments CT CHEST WO Routine 01/19/2018 9:26 AM Cavitary lesion of Results for this CONTRAST [employer] lung procedure are in Hemoptysis the results section. XR CHEST 2 VW Routine 01/04/2018 12:09 PM Pneumonia, organism Results for this [employer] unspecified(486) procedure are in Postoperative the results septicemia section. after 10/25/[address] Chest Wo Contrast (01/19/2018 9:26 AM [employer] WORK[employer]) Narrative Performed At EXAMINATION: CT CHEST WO [...] intact. A spinal stimulator is partially imaged. [facility] [place] [place]-[id number] Procedure Note Hm Interface, Radiology Results Incoming - 01/19/2018 9:58 AM [employer] EXAMINATION: CT CHEST WO CONTRAST CLINICAL HISTORY: [...] intact. A spinal stimulator is partially imaged. [facility]-[id number] Performing Organization Address City/State/Zipcode Phone Number [facility] [address] [place] [address] XR Chest 2 Vw (01/04/2018 12:09 PM [employer] WORK[employer]) Narrative Performed At EXAMINATION:XR CHEST 2 VW [facility] CLINICAL HISTORY:J18.9 Pneumoniaunspecified organism, T81.4XXA Infection following a procedureinitial encounter, j18.9 COMPARISON:Chest x-ray 10/05/2017 IMPRESSION: Frontal and lateral views reveal a stable cardiomediastinal silhouette. Thoracic spinal cord simulator remains in place. Improved aeration has occurred throughout the lungs though coarse interstitial markings persist. Pleural margins are sharp. The remainder of the examination is unremarkable. [facility]-[id number] Procedure Note Hm Interface, Radiology Results Incoming - 01/04/2018 12:19 PM [employer] EXAMINATION: XR CHEST 2 VW CLINICAL HISTORY: J18.9 Pneumonia unspecified organism, T81.4XXA Infection following a procedure initial encounter, j18.9 COMPARISON: Chest x-ray 10/05/2017 IMPRESSION: Frontal and lateral views reveal a stable cardiomediastinal silhouette. Thoracic spinal cord simulator remains in place. Improved aeration has occurred throughout the lungs though coarse interstitial markings persist. Pleural margins are sharp. The remainder of the examination is unremarkable. [facility]-[id number] Performing Organization Address City/State/Zipcode Phone Number [facility] [address] [place] [address] after 10/25/2017 Insurance Payer Benefit Plan / Group Subscriber ID Type Phone Address BCBS BCBS CHOICE PPO/FEDERAL EMPL PPO xxxxxxxxxxxx PPO Advance Directives Patient has advance care planning documents on file. For more information, please contact:Mannie Terry[address] [place] [address]
[2018-10-27 00:41] LABS: Absolute Lymphocytes (CBC) 2.7 K/uL (0.7-4.9); Absolute Monocytes 0.7 K/uL (0.1-1.3); Absolute Neutrophil 9.9 K/uL (1.8-8.0); Basophils % 0.3 % (0-1.3); Hematocrit 36.5 % (36.0-45.0); Lymphocytes % 20.3 % (15.3-44.8); MCH 31.5 pg (27.0-35.0); MCV 92.5 fL (80-100); Monocytes % 5.1 % (3.3-12.3); RBC Red Blood Cell Count 3.95 M/uL (3.86-4.86)
[2018-10-27 00:44] LABS: Protime INR 0.94
[2018-10-27 01:08] LABS: Barbiturates NEGATIVE (NEGATIVE); Benzodiazepines NEGATIVE (NEGATIVE); Cocaine NEGATIVE (NEGATIVE); METHAMPHETAM NEGATIVE (NEGATIVE); Methadone NEGATIVE (NEGATIVE); Opiates POSITIVE (NEGATIVE); Phencyclidine NEGATIVE (NEGATIVE); THC Cannibis NEGATIVE (NEGATIVE)
[2018-10-27 01:10] LABS: Albumin 3.3 g/dL (3.4-5.0); Bilirubin Direct 0.1 mg/dL (0-0.2); Bilirubin Total 0.2 mg/dL (0.2-1.0); Phosphorus 4.3 mg/dL (2.5-4.9); Potassium 3.9 mmol/L (3.5-5.1); Protein, Total 6.1 g/dL (6.4-8.2)
[2018-10-27 01:25] LABS: Urine Culture Reflex Order NOT NEEDED
[2018-10-27 01:26] LABS: Urine Blood NEGATIVE (NEG); Urine Glucose NEGATIVE (NEG); Urine Protein NEGATIVE (NEG)
[2018-10-27 01:29] LABS: Urine Bacteria <20 /HPF (<20); Urine RBC <5 /HPF (NONE SEEN)
[2018-10-27] MEDS ORDERED: NA CHLORIDE 0.9% 1,000 ML ONE (01:37)
--- NOTE | 2018-10-27 02:01 | EDPHYS ---
Physician Documentation [facility] Name: Pratibha Jennings Age: 53 yrs Sex: Female : 1965 Arrival Date: 10/26/2018 Time: 22:23 Bed 26 Private MD: Von Chaves C ED Physician Nabil Grant HPI: 10/26 23:54 This 53 yrs old Female presents to ER via Ambulatory with complaints of snw Probable Seizure, General Weakness. 23:54 generalized weakness over several weeks. Onset: The symptoms/episode began/occurred snw gradually, and became worse and became persistent. Severity of symptoms: At their worst the symptoms were moderate severe. It is unknown whether or not the patient has had similar symptoms in the past. The patient has been recently seen by a physician: the patient's primary care provider, Dr. Chaves The patient has been recently seen at the [facility] Emergency Department, a couple of weeks ago. Dr. Sharp did EGD yesterday, unable to get into small intestine. Historical: - Allergies: 22:49 Iodine; topical; rv - Home Meds: 22:49 Ambien 5 mg Oral tab 1 tab once daily [Active]; amlodipine oral [Active]; atorvastatin rv Oral [Active]; Fluoxetine Oral [Active]; gabapentin 600 mg Oral tab 1 tab daily [Active]; Hydroxyzine Oral [Active]; lidocaine patch [Active]; morphine 15 mg Oral tab 1 tab every 4 hours [Active]; Neurontin 600 mg Oral tab 1 tab daily [Active]; oxycodone-acetaminophen 10-650 mg Oral tab 1 tab every 6 hours [Active]; Propranolol Oral [Active]; Protonix Oral [Active]; tizanidine 4 mg Oral cap 1 cap [Active]; Zofran Oral [Active]; - PMHx: 22:49 ADD/ADHD; Back pain; Chronic pain; Degenerative disc disease; Hyperlipidemia; rv Hypertension; - PSHx: 22:49 BACK SURGERY; rv - Immunization history:: Adult Immunizations up to date, Flu vaccine is not up to date. - Social history:: Smoking status: unknown. - Ebola Screening: : Patient negative for fever greater than or equal to 101.5 degrees Fahrenheit, and additional compatible Ebola Virus Disease symptoms Patient denies exposure to infectious person Patient denies travel to an Ebola-affected area in the 21 days before illness onset. ROS: 23:52 Eyes: Negative for injury, pain, redness, and discharge, ENT: Negative for injury, snw pain, and discharge, Neck: Negative for injury, pain, and swelling, Cardiovascular: Negative for chest pain, palpitations, and edema, Respiratory: Negative for shortness of breath, cough, wheezing, and pleuritic chest pain, Abdomen/GI: Negative for abdominal pain, nausea, vomiting, diarrhea, and constipation, Back: Negative for injury and pain, : Negative for injury, bleeding, discharge, and swelling. 23:52 Skin: Negative for injury, rash, and discoloration. 23:52 Constitutional: Positive for poor PO intake, wt loss, weakness. 23:52 MS/extremity: Positive for injury or acute deformity, weakness and jerky movements. 23:52 Neuro: Positive for weakness. 23:52 Psych: Positive for anxiety. Exam: 23:50 Head/Face: Normocephalic, atraumatic. Eyes: Pupils equal round and reactive to light, snw extra-ocular motions intact. Lids and lashes normal. Conjunctiva and sclera are non-icteric and not injected. Cornea within normal limits. Periorbital areas with no swelling, redness, or edema. ENT: Nares patent. No nasal discharge, no septal abnormalities noted. Tympanic membranes are normal and external auditory canals are clear. Oropharynx with no redness, swelling, or masses, exudates, or evidence of obstruction, uvula midline. Mucous membranes moist. Neck: Trachea midline, no thyromegaly or masses palpated, and no cervical lymphadenopathy. Supple, full range of motion without nuchal rigidity, or vertebral point tenderness. No Meningismus. Chest/axilla: Normal chest wall appearance and motion. Nontender with no deformity. No lesions are appreciated. Cardiovascular: Regular rate and rhythm with a normal S1 and S2. No gallops, murmurs, or rubs. Normal PMI, no JVD. No pulse deficits. Respiratory: Lungs have equal breath sounds bilaterally, clear to auscultation and percussion. No rales, rhonchi or wheezes noted. No increased work of breathing, no retractions or nasal flaring. 23:50 Back: No spinal tenderness. No costovertebral tenderness. Full range of motion. 23:50 Constitutional: The patient appears awake, frail, jumpy 23:50 Abdomen/GI: Inspection: abdomen appears normal, Bowel sounds: active. 23:50 Musculoskeletal/extremity: Extremities: grossly normal except: noted in the left hand: contusion, pain. 23:50 Skin: Appearance: normal except for affected area, injury, abrasion(s), small abrasion noted, of the dorsal aspect of proximal phalanx of left little finger. 23:50 Neuro: Orientation: is normal, Mentation: is normal, Memory: is normal, Cerebellar function: jumpy, jerky motions, Motor: Hypertonic in right leg and left leg. seizure activity, is not displayed by the patient, Abnormal movements: present. Vital Signs: 22:49 BP 104 / 61; Pulse 89; Resp 16; Temp 98.7; Pulse Ox 99% ; Weight 49.44 kg (R); rv 23:30 BP 90 / 72; Pulse 84; Resp 17; Pulse Ox 97% on R/A; rv 10/27 00:30 BP 99 / 88; Pulse 92; Resp 14; Pulse Ox 95% ; rv 01:36 BP 89 / 79; Pulse 90; Resp 17; Pulse Ox 100% on R/A; rv 01:56 BP 113 / 77; Pulse 92; Resp 17; Pulse Ox 96% ; ds4 02:20 BP 132 / 80; Pulse 93; Resp 17; Pulse Ox 100% on R/A; rv Boyd Coma Score: 10/26 22:52 Eye Response: spontaneous(4). Verbal Response: oriented(5). Motor Response: obeys rv commands(6). Total: 15. MDM: 22:46 Patient medically screened. snw 10/27 02:06 Data reviewed: vital signs, nurses notes. Data interpreted: Pulse oximetry: on room air snw is 96 %. Interpretation: acceptable. Counseling: I had a detailed discussion with the patient and/or guardian regarding: the historical points, exam findings, and any diagnostic results supporting the discharge/admit diagnosis, lab results, radiology results, the need for outpatient follow up, to return to the emergency department if symptoms worsen or persist or if there are any questions or concerns that arise at home. Special discussion: Based on the patient's history, exam, and Dx evaluation, there is no indication for emergent intervention or inpatient Tx. It is understood by the patient/guardian that if the Sx's persist or worsen they need to return immediately for re-evaluation. Based on the history and exam findings, there is no indication for further emergent testing or inpatient evaluation. I discussed with the patient/guardian the need to see the political reporter/oncologist for further evaluation of the symptoms. 10/26 22:29 Order name: Urine Culture snw 10/26 22:29 Order name: Urine Microscopic Only; Complete Time: 01:30 w 10/26 23:18 Order name: Acetaminophen; Complete Time: :15 w 10/26 23:18 Order name: Basic Metabolic Panel; Complete Time: :w 10/26 23:18 Order name: CBC with Diff; Complete Time: 00:55 w 10/26 23:18 Order name: ETOH Level; Complete Time: 00:55 w 10/26 23:18 Order name: Hepatic Function; Complete Time: :15 w 10/26 23:18 Order name: PT-INR; Complete Time: 00:55 w 10/26 23:18 Order name: Ptt, Activated; Complete Time: 00:55 w 10/26 23:18 Order name: Salicylate; Complete Time: :15 w 10/26 23:18 Order name: Urine Drug Screen; Complete Time: :15 w 10/26 23:18 Order name: Phosphorus; Complete Time: :w 10/27 01:18 Order name: Urine Dipstick--Ancillary (enter results); Complete Time: : ar5 10/26 22:29 Order name: Urine Dipstick-Ancillary (obtain specimen); Complete Time: 00:31 w 10/26 23:18 Order name: EKG; Complete Time: 23:20 w 10/26 23:18 Order name: EKG - Nurse/Tech; Complete Time: 23:51 snw 10/26 23:18 Order name: IV Saline Lock; Complete Time: 23:51 w 10/26 23:18 Order name: Labs collected and sent; Complete Time: 23:52 w 10/26 23:18 Order name: CT Head Brain wo Cont snw 10/26 23:20 Order name: Hand Left 3 View XRAY snw 10/26 23:22 Order name: Head Brain Wo Cont EDMS 10/26 23:22 Order name: Hand Left 3 View EDMS 10/27 00:35 Order name: Splint - Ulnar Gutter; Complete Time: 01:49 snw Administered Medications: 01:30 Drug: NS 0.9% 1000 ml Route: IV; Rate: 1 bolus; Site: right forearm; rv 02:18 Follow up: IV Status: Completed infusion rv 02:00 Drug: Zofran 4 mg Route: PO; rv 02:19 Follow up: Response: Medication administered at discharge. rv Disposition: 04:12 Co-signature as Attending Physician, Nabil Grant MD. Disposition: 10/27/18 02:00 Discharged to Home. Impression: Displaced fracture of base of fifth metacarpal bone. left hand, Fall on same level, unspecified, Chronic pain syndrome, Muscle weakness (generalized) - Diffuse cortical and white matter atrophy. - Condition is Stable. - Discharge Instructions: Cast or Splint Care, Adult, Chronic Pain, Metacarpal Fracture, Fall Prevention in the Home, Pain Medicine Instructions, Weakness, Cerebral Atrophy, Weakness, Ioys-md-Ekxp. - Medication Reconciliation Form, Thank You Letter, Antibiotic Education, Prescription Opioid Use form. - Follow up: Von Chaves MD; When: Tomorrow; Reason: Recheck today's complaints, Continuance of care. Follow up: Jassi Wilks MD; When: 1 week; Reason: Recheck today's complaints. Signatures: Dispatcher [employer] [facility] Vivi Sampson, PATTERN FINISHER-C PATTERN FINISHER-Csnw Nabil Grant MD MD Esequiel Crews, ANGELA RN rv Corrections: (The following items were deleted from the chart) 10/26 23:22 23:20 CALCIUM+C.LAB.BRZ ordered. [facility] 10/27 02:46 02:00 10/27/2018 02:00 Discharged to Home. Impression: Displaced fracture of base of rv fifth metacarpal bone. left hand; Fall on same level, unspecified; Chronic pain syndrome; Muscle weakness (generalized) - Diffuse cortical and white matter atrophy. Condition is Stable. Forms are Medication Reconciliation Form, Thank You Letter, Antibiotic Education, Prescription Opioid Use. Follow up: Von Chaves; When: Tomorrow; Reason: Recheck today's complaints, Continuance of care. Follow up: Jassi Wilks; When: 1 week; Reason: Recheck today's complaints. snw
--- NOTE | 2018-10-27 02:01 | ER ---
Nurse's Notes [facility] Name: Pratibha Jennings Age: 53 yrs Sex: Female : 1965 Arrival Date: 10/26/2018 Time: 22:23 Bed 26 Private MD: Von Chaves C Diagnosis: Displaced fracture of base of fifth metacarpal bone. left hand;Fall on same level, unspecified;Chronic pain syndrome;Muscle weakness (generalized)-Diffuse cortical and white matter atrophy Presentation: 10/26 22:44 Presenting complaint: Patient states: PATIENT WAS SEEN HERE BEFORE FOR WEAKNESS AND rv SHAKING. EVERYTHING WAS DONE. CT SCAN NEGATIVE FOR ANY ACUTE FINDINGS. SHE WAS DISCHARGED. WEAKNESS AND SHAKING IS PROGRESSIVE UP TO THIS DAY UNTIL SHE HAVE TROUBLE STANDING AND WALKING. HER KNEES JUST GIVES UP. Transition of care: patient was not received from another setting of care. Onset of symptoms was October 19, 2018 at 08:00. Risk Assessment: Do you want to hurt yourself or someone else? Patient reports no desire to harm self or others. Initial Sepsis Screen: Does the patient meet any 2 criteria? No. Patient's initial sepsis screen is negative. Does the patient have a suspected source of infection? No. Patient's initial sepsis screen is negative. Care prior to arrival: None. 22:44 Method Of Arrival: Ambulatory rv 22:44 Acuity: NUSRAT 3 rv Historical: - Allergies: 22:49 Iodine; topical; rv - Home Meds: 22:49 Ambien 5 mg Oral tab 1 tab once daily [Active]; amlodipine oral [Active]; atorvastatin rv Oral [Active]; Fluoxetine Oral [Active]; gabapentin 600 mg Oral tab 1 tab daily [Active]; Hydroxyzine Oral [Active]; lidocaine patch [Active]; morphine 15 mg Oral tab 1 tab every 4 hours [Active]; Neurontin 600 mg Oral tab 1 tab daily [Active]; oxycodone-acetaminophen 10-650 mg Oral tab 1 tab every 6 hours [Active]; Propranolol Oral [Active]; Protonix Oral [Active]; tizanidine 4 mg Oral cap 1 cap [Active]; Zofran Oral [Active]; - PMHx: 22:49 ADD/ADHD; Back pain; Chronic pain; Degenerative disc disease; Hyperlipidemia; rv Hypertension; - PSHx: 22:49 BACK SURGERY; rv - Immunization history:: Adult Immunizations up to date, Flu vaccine is not up to date. - Social history:: Smoking status: unknown. - Ebola Screening: : Patient negative for fever greater than or equal to 101.5 degrees Fahrenheit, and additional compatible Ebola Virus Disease symptoms Patient denies exposure to infectious person Patient denies travel to an Ebola-affected area in the 21 days before illness onset. Screenin:51 Abuse screen: Denies threats or abuse. Denies injuries from another. Nutritional rv screening: No deficits noted. Tuberculosis screening: No symptoms or risk factors identified. Fall Risk Fall in past 12 months (25 points). Secondary diagnosis (15 points) impaired mobility, No IV (0 pts). Ambulatory Aid- None/Bed Rest/Nurse Assist (0 pts). Gait- Weak (10 pts.). Mental Status- Oriented to own ability (0 pts). Total Carranza Fall Scale indicates High Risk Score (45 or more points). Fall prevention measures have been instituted. Side Rails Up X 2 Placed Close to Nursing Station Frequent Obs/Assessments Occuring Family Present and informed to notify staff if the need to leave the bedside As available patient and family educated on Fall Prevention Program and Strategies. Assessment: 22:50 General: Appears in no apparent distress. uncomfortable, Behavior is calm, cooperative. rv Pain: Complains of pain in left hand. Neuro: Level of Consciousness is awake, alert, obeys commands, Oriented to person, place, time, situation. Cardiovascular: Capillary refill < 3 seconds. Respiratory: Airway is patent. GI: No signs and/or symptoms were reported involving the gastrointestinal system. : No signs and/or symptoms were reported regarding the genitourinary system. EENT: No signs and/or symptoms were reported regarding the EENT system. Derm: Bruising that is dark purple, on left hand. Musculoskeletal: No signs and/or symptoms reported regarding the musculoskeletal system. 10/27 00:28 Reassessment: No changes from previously documented assessment. rv 01:35 Reassessment: No changes from previously documented assessment. rv Vital Signs: 10/26 22:49 BP 104 / 61; Pulse 89; Resp 16; Temp 98.7; Pulse Ox 99% ; Weight 49.44 kg (R); rv 23:30 BP 90 / 72; Pulse 84; Resp 17; Pulse Ox 97% on R/A; rv 11/30 00:30 BP 99 / 88; Pulse 92; Resp 14; Pulse Ox 95% ; rv 01:36 BP 89 / 79; Pulse 90; Resp 17; Pulse Ox 100% on R/A; rv 01:56 BP 113 / 77; Pulse 92; Resp 17; Pulse Ox 96% ; ds4 02:20 BP 132 / 80; Pulse 93; Resp 17; Pulse Ox 100% on R/A; rv [place] Coma Score: 10/26 22:52 Eye Response: spontaneous(4). Verbal Response: oriented(5). Motor Response: obeys rv commands(6). Total: 15. ED Course: 22:23 Patient arrived in ED. am2 22:23 Von Chaves MD is Private Physician. am2 22:46 Viv[facility] Sampson [facility]-C [facility] snw 22:46 Nabil Grant MD is Attending Physician. snw 22:47 Triage completed. rv 22:52 Seizure precautions initiated. rv 22:52 Arm band placed on left wrist. rv 10/27 00:00 Inserted saline lock: 20 gauge in right forearm, using aseptic technique. rv 00:00 Initial lab(s) drawn, by ED staff, sent to lab. rv 00:31 Urine Culture Sent. rv 00:31 Urine Microscopic Only Sent. rv 00:37 Missed attempt(s): 20 gauge in left antecubital area. Bleeding controlled, band aid oe applied, catheter tip intact. 00:38 CT completed. Patient tolerated procedure well. Patient moved to CT via wheelchair. eh Patient moved back from CT. 00:51 Hand Left 3 View In Process Unspecified. EDMS 00:51 Head Brain Wo Cont In Process Unspecified. EDMS 01:49 CT Head Brain wo Cont Sent. rv 01:49 Hand Left 3 View XRAY Sent. rv 01:49 Urine Culture Sent. rv 01:56 Von Chaves MD is Referral Physician. snw 01:56 Jassi Wilks MD is Referral Physician. snw 01:56 Orthoglass splint: Ulnar gutter/Boxer splint applied on left forearm. ds4 02:20 No provider procedures requiring assistance completed. IV discontinued, bleeding rv controlled, No redness/swelling at site. Pressure dressing applied. Administered Medications: 01:30 Drug: NS 0.9% 1000 ml Route: IV; Rate: 1 bolus; Site: right forearm; rv 02:18 Follow up: IV Status: Completed infusion rv 02:00 Drug: Zofran 4 mg Route: PO; rv 02:19 Follow up: Response: Medication administered at discharge. rv Outcome: 02:00 Discharge ordered by . shamar 02:20 Discharged to home via wheelchair. rv 02:20 Condition: good 02:20 Discharge instructions given to patient, family, Instructed on discharge instructions, follow up and referral plans. Demonstrated understanding of instructions, follow-up care. 02:46 Patient left the ED. rv Addendum: 10/30/2018 08:47 Addendum: Culture Results: Positive urine culture. No further action required. Other: i w pt was admitted to hospital on 10-28-18, diagnosis pneumonia, unresponsive . Signatures: Dispatcher [employer] EDMS Vivi Sampson, ASSISTANT REFINERY OPERATOR-C ASSISTANT REFINERY OPERATOR-Csnw Bashir Tucker Irene, RN RN Gabino Walls ds4 Sha Davis Amanda am2 Esequiel Crews, RN RN rv
[2018-10-27] MEDS ORDERED: ONDANSETRON 4 MG (ODT) TAB ONE (02:05)
[2018-10-27 03:09] VITALS: TEMP 98.7
[2018-10-27 03:20] VITALS: BP 132/80; O2SAT 100
--- NOTE | 2018-10-27 07:18 | EKG ---
Test Date: 2018-10-26 Test Time: 23:33:01 Integrated Campaign Manager: CARLA MEASUREMENT RESULTS: Intervals: Rate: 86 MT: 140 QRSD: 70 QT: 386 QTc: 461 [place]: P: 35 MT: 140 QRS: 51 T: 63 INTERPRETIVE STATEMENTS: Normal sinus rhythm Nonspecific T wave abnormality Prolonged QT Abnormal ECG Compared to ECG 08/06/2018 10:23:31 T-wave abnormality now present Prolonged QT interval now present Left ventricular hypertrophy no longer present Electronically Signed On 10-27-18 07:18:12 IMAGING CENTER MANAGER by Lei Camp
--- NOTE | 2018-10-27 08:42 | RAD REPORT ---
EXAM DESCRIPTION: CT - Head Brain Wo Cont - 10/27/2018 5:40 am CLINICAL HISTORY: Dizziness COMPARISON: 2016 TECHNIQUE: Computed axial tomography of the head was obtained. IV contrast was not requested. Prelim inary report generated by virtual radiologic a review prior to dictation All CT scans are performed using dose optimization technique as appropriate and may include automated exposure control or mA/KV adjustment according to patient size. FINDINGS: An intracranial bleed is not seen . The ventricles are normal in caliber. No extra-axial fluid collection is noted. Fluid within the sinuses/ mastoids is not seen. IMPRESSION: No acute intracranial abnormality is seen. If patient's symptoms persist MRI of the bra in would be recommended.
--- NOTE | 2018-10-27 09:38 | RAD REPORT ---
EXAM DESCRIPTION: RAD -Hand Left 3 View - 10/27/2018 12:11 am CLINICAL HISTORY: Left hand pain status post injury FINDINGS: An oblique fracture involves the distal shaft of the fifth metacarpal with angulation pres ent at the fracture site and mild to moderate displacement of fracture fragments. No dislocation seen
== END 2018-10-27 02:46 | disposition home or self-care (01) ==
LOC: ER 22:22
DX: S62.317A Displaced fracture of base of fifth metacarpal bone, left hand, initial encounter for closed fracture (principal); G89.4 Chronic pain syndrome; W18.30XA Fall on same level, unspecified, initial encounter; Y93.9 Activity, unspecified; Y92.9 Unspecified place or not applicable; Z91.048 Other nonmedicinal substance allergy status; I10 Essential (primary) hypertension; F90.9 Attention-deficit hyperactivity disorder, unspecified type
CPT/HCPCS: 36415; 70450; 80048; 80076; 80307; 80320; 80329; 81003; 81015; 84100; 85025; 85610; 85730; 87077; 87086; 87088; 87186; 93005; 96360; 99284; J7030

== ENCOUNTER 2018-10-28 09:58 | Inpatient (IN) | payer BC ==
--- OUTSIDE RECORDS SUMMARY | 2018-10-28 09:59 | XMS REPORT | Clinical Summary ---
:1965 Author Organization [facility] Address [address] [place] [address] Care Team Providers Name Role Phone Provider, [...] organism unspecified(486) (Primary Dx); Postoperative septicemia after 10/27/2017 Immunizations Name Dates Previously Given Next Due [...] Taken Blood Pressure 124/76 01/19/2018 11:58 AM MACHINE MAINTENANCE REPAIRER Pulse 62 01/19/2018 11:58 AM MACHINE MAINTENANCE REPAIRER Temperature 36.3 C (97.4 F) 01/19/2018 11:58 AM MACHINE MAINTENANCE REPAIRER Respiratory Rate - - Oxygen Saturation 100% 01/19/2018 11:58 AM MACHINE MAINTENANCE REPAIRER Inhaled Oxygen Concentration - - Weight 62.1 kg (137 lb) 01/19/2018 11:58 AM MACHINE MAINTENANCE REPAIRER Height 163.8 cm (5' 4.5") 01/19/2018 11:58 AM MACHINE MAINTENANCE REPAIRER Body Mass Index 23.15 01/19/2018 11:58 AM MACHINE MAINTENANCE REPAIRER Plan of Treatment Health Maintenance Due Date [...] complete this topic Implants Implanted Type Area Rf Technician Device Shelf Model / Serial Identifier Expiration Date / Lot Stimulator Stimulator [employer] / / Procedures Procedure Name Priority Date/Time Associated Diagnosis Comments CT CHEST WO Routine 01/19/2018 9:26 AM Cavitary lesion of Results for this CONTRAST MACHINE MAINTENANCE REPAIRER lung procedure are in Hemoptysis the results section. XR CHEST 2 VW Routine 01/04/2018 12:09 PM Pneumonia, organism Results for this MACHINE MAINTENANCE REPAIRER unspecified(486) procedure are in Postoperative the results septicemia section. after 10/27/[address] Chest Wo Contrast (01/19/2018 9:26 AM MACHINE MAINTENANCE REPAIRER) Narrative Performed At EXAMINATION: CT CHEST WO [...] intact. A spinal stimulator is partially imaged. [id number] Procedure Note Hm Interface, Radiology Results Incoming - 01/19/2018 9:58 AM MACHINE MAINTENANCE REPAIRER EXAMINATION: CT CHEST WO CONTRAST CLINICAL HISTORY: [...] intact. A spinal stimulator is partially imaged. [facility]-[id number] Performing Organization Address City/State/Zipcode Phone Number [facility] [address] [place] [address] XR Chest 2 Vw (01/04/2018 12:09 PM MACHINE MAINTENANCE REPAIRER) Narrative Performed At EXAMINATION:XR CHEST 2 VW [facility] CLINICAL HISTORY:J18.9 Pneumoniaunspecified organism, T81.4XXA Infection following a procedureinitial encounter, j18.9 COMPARISON:Chest x-ray 10/05/2017 IMPRESSION: Frontal and lateral views reveal a stable cardiomediastinal silhouette. Thoracic spinal cord simulator remains in place. Improved aeration has occurred throughout the lungs though coarse interstitial markings persist. Pleural margins are sharp. The remainder of the examination is unremarkable. [facility]-[id number] Procedure Note Hm Interface, Radiology Results Incoming - 01/04/2018 12:19 PM MACHINE MAINTENANCE REPAIRER EXAMINATION: XR CHEST 2 VW CLINICAL HISTORY: J18.9 Pneumonia unspecified organism, T81.4XXA Infection following a procedure initial encounter, j18.9 COMPARISON: Chest x-ray 10/05/2017 IMPRESSION: Frontal and lateral views reveal a stable cardiomediastinal silhouette. Thoracic spinal cord simulator remains in place. Improved aeration has occurred throughout the lungs though coarse interstitial markings persist. Pleural margins are sharp. The remainder of the examination is unremarkable. [facility]-[id number] Performing Organization Address City/State/Zipcode Phone Number [facility] [address] [place] [address] after 10/27/2017 Insurance Payer Benefit Plan / Group Subscriber ID Type Phone Address BCBS BCBS CHOICE PPO/F[employer]ER[employer] EMPL PPO xxxxxxxxxxxx PPO Advance Directives Patient has advance care planning documents on file. For more information, please contact:Mannie Terry[address] [place] [address]
[2018-10-28 10:30] LABS: Absolute Lymphocytes (CBC) 2.2 K/uL (0.7-4.9); Absolute Monocytes 0.8 K/uL (0.1-1.3); Basophils % 0.2 % (0-1.3); Eosinophils % 0.9 % (0-4.4); Hematocrit 29.7 % (36.0-45.0); Lymphocytes % 14.3 % (15.3-44.8); MCH 31.2 pg (27.0-35.0); MPV 7.4 fL (7.6-11.3); RBC Red Blood Cell Count 3.19 M/uL (3.86-4.86)
[2018-10-28 10:34] LABS: Protime INR 0.91
--- NOTE | 2018-10-28 10:50 | RAD REPORT ---
EXAM DESCRIPTION: RAD - Chest Single View - 10/28/2018 10:40 am CLINICAL HISTORY: COUGH Chest pain. COMPARISON: Chest Single View dated 06/02/2018; Chest Single View dated 05/29/2018; Chest Single View da [email or web address] 09/25/2017; Chest Single View dated 09/25/2017 FINDINGS: Portable technique limits examination quality. Diffusely prominent interstitial lung markings are present which may represent mild interstitial pulm onary edema or interstitial pneumonitis. The heart is normal in size. No displaced fractures.
--- NOTE | 2018-10-28 10:50 | EDPHYS ---
Physician Documentation [facility] Name: Pratibha Jennings Age: 53 yrs Sex: Female : 1965 Arrival Date: 10/28/2018 Time: 10:04 Bed 3 Private MD: ED Physician Baldemar Browne HPI: 10/28 10:45 This 53 yrs old Female presents to ER via EMS with complaints of Altered samira Mental Status, Drug Abuse. 10:45 The patient presents with confusion, decreased mental status, trouble concentrating. samira Onset: The symptoms/episode began/occurred 2 day(s) ago. Possible causes: drug use, sepsis. Associated signs and symptoms: Pertinent positives: confusion, dizziness. Current symptoms: In the emergency department the patient's symptoms are unchanged from the initial presentation, despite home interventions. Patient's baseline: Neuro: alert and fully oriented. The patient has not experienced similar symptoms in the past. Historical: - Allergies: 10:26 Iodine; topical; ph - Home Meds: 10:26 Ambien 5 mg Oral tab 1 tab once daily [Active]; amlodipine oral [Active]; atorvastatin ph Oral [Active]; Fluoxetine Oral [Active]; gabapentin 600 mg Oral tab 1 tab daily [Active]; 10:33 Hydroxyzine Oral [Active]; lidocaine patch [Active]; morphine 15 mg Oral tab 1 tab ph every 4 hours [Active]; Neurontin 600 mg Oral tab 1 tab daily [Active]; oxycodone-acetaminophen 10-650 mg Oral tab 1 tab every 6 hours [Active]; Propranolol Oral [Active]; Protonix Oral [Active]; tizanidine 4 mg Oral cap 1 cap [Active]; Zofran Oral [Active]; - PMHx: 10:33 ADD/ADHD; Back pain; Chronic pain; Degenerative disc disease; Hyperlipidemia; ph Hypertension; - PSHx: 10:33 BACK SURGERY; nerve stimulator; ph - Immunization history:: Adult Immunizations unknown. - Social history:: Smoking status: unknown. - Ebola Screening: : No symptoms or risks identified at this time. - Family history:: not pertinent. ROS: 10:45 Constitutional: Negative for fever, chills, and weight loss, Eyes: Negative for injury, samira pain, redness, and discharge, ENT: Negative for injury, pain, and discharge, Neck: Negative for injury, pain, and swelling, Cardiovascular: Negative for chest pain, palpitations, and edema, Abdomen/GI: Negative for abdominal pain, nausea, vomiting, diarrhea, and constipation, Back: Negative for injury and pain, : Negative for injury, bleeding, discharge, and swelling, MS/Extremity: Negative for injury and deformity, Skin: Negative for injury, rash, and discoloration, Psych: Negative for depression, anxiety, suicide ideation, homicidal ideation, and hallucinations, Allergy/Immunology: Negative for hives, rash, and allergies, Endocrine: Negative for neck swelling, polydipsia, polyuria, polyphagia, and marked weight changes, Hematologic/Lymphatic: Negative for swollen nodes, abnormal bleeding, and unusual bruising. 10:45 Respiratory: Positive for cough, shortness of breath. 10:45 Neuro: Positive for altered mental status, weakness. Exam: 10:45 Head/Face: Normocephalic, atraumatic. Eyes: Pupils equal round and reactive to light, samira extra-ocular motions intact. Lids and lashes normal. Conjunctiva and sclera are non-icteric and not injected. Cornea within normal limits. Periorbital areas with no swelling, redness, or edema. ENT: Nares patent. No nasal discharge, no septal abnormalities noted. Tympanic membranes are normal and external auditory canals are clear. Oropharynx with no redness, swelling, or masses, exudates, or evidence of obstruction, uvula midline. Mucous membranes moist. Neck: Trachea midline, no thyromegaly or masses palpated, and no cervical lymphadenopathy. Supple, full range of motion without nuchal rigidity, or vertebral point tenderness. No Meningismus. Chest/axilla: Normal chest wall appearance and motion. Nontender with no deformity. No lesions are appreciated. Cardiovascular: Regular rate and rhythm with a normal S1 and S2. No gallops, murmurs, or rubs. Normal PMI, no JVD. No pulse deficits. 10:45 Constitutional: The patient appears lethargic. 10:45 Respiratory: the patient does not display signs of respiratory distress, Respirations: normal, Breath sounds: decreased breath sounds, rhonchi, wheezing: expiratory Vital Signs: 10:00 BP 63 / 42; Pulse 62; Resp 14; Temp 97.7; Pulse Ox 93% on R/A; ph 10:30 BP 72 / 56; Pulse 60; Resp 16; Pulse Ox 97% on 4 lpm NC; ph 11:00 BP 74 / 52; Pulse 71; Resp 16; Pulse Ox 90% on 4 lpm NC; ph 11:30 BP 68 / 49; Pulse 68; Resp 18; Pulse Ox 93% on 4 lpm NC; ph 12:00 BP 70 / 48; Pulse 72; Resp 18; Pulse Ox 89% on 4 lpm NC; ph 12:30 BP 76 / 57; Pulse 71; Resp 18; Pulse Ox 97% on 4 lpm NC; ph 13:00 BP 78 / 60; Pulse 70; Resp 16; Pulse Ox 87% on 4 lpm NC; ph 13:30 BP 78 / 60; Pulse 70; Resp 14; Pulse Ox 95% on 4 lpm NC; ph 14:00 BP 61 / 44; Pulse 72; Resp 18; Pulse Ox 95% on 4 lpm NC; ph 14:30 BP 103 / 83; Pulse 77; Resp 18; Pulse Ox 91% on 4 lpm NC; ph 15:11 BP 102 / 58; Pulse 81; Resp 18; Pulse Ox 96% on 5 lpm NC; ph 15:30 BP 101 / 68; Pulse 80; Resp 18; Pulse Ox 94% on 5 lpm NC; ph 16:00 BP 102 / 58; Pulse 80; Resp 16; Pulse Ox 94% on 5 lpm NC; ph 16:38 BP 94 / 69; Pulse 78; Resp 16; Pulse Ox 93% on 5 lpm NC; ph 17:00 BP 88 / 61 (art line/); Pulse 76; Resp 16; Temp 97.8; Pulse Ox 94% on 5 lpm NC; ph Procedures: 14:24 Central Line: the site was prepped with Betadine, a triple lumen catheter was inserted, samira in the right in 1 attempts. placement was verified, by blood return, the site was dressed with using sterile technique, the patient tolerated the procedure, well. MDM: 10:04 Patient medically screened. [facility] 14:25 Data reviewed: vital signs, nurses notes, lab test result(s), EKG, radiologic studies, [facility] CT scan, plain films. 10/28 10:07 Order name: Basic Metabolic Panel [facility] 10/28 10:07 Order name: CBC with Diff [facility] 10/28 10:07 Order name: LFT's [facility] 10/28 10:07 Order name: Magnesium [facility] 10/28 10:07 Order name: NT PRO-BNP [facility] 10/28 10:07 Order name: PT-INR [facility] 10/28 10:07 Order name: Troponin (emerg Dept Use Only) [facility] 10/28 10:07 Order name: Acetaminophen [facility] 10/28 10:07 Order name: ETOH Level [facility] 10/28 10:07 Order name: Ptt, Activated [facility] 10/28 10:07 Order name: Salicylate [facility] 10/28 10:07 Order name: Urine Drug Screen [facility] 10/28 10:07 Order name: Blood Culture Adult (2) [facility] 10/28 10:07 Order name: Urine Culture [facility] 10/28 10:07 Order name: Lipase [facility] 10/28 10:32 Order name: CBC with Automated Diff; Complete Time: 10:43 EDWI 10/28 10:38 Order name: Protime (+INR); Complete Time: 10:43 [facility]WI 10/28 10:38 Order name: PTT, Activated Partial Thromb; Complete Time: 10:43 EDMS 10/28 10:45 Order name: Procalcitonin [facility] 10/28 10:45 Order name: Lactate [facility] 10/28 10:58 Order name: Salicylates Level; Complete Time: 11:09 EDMS 10/28 11:05 Order name: Basic Metabolic Panel; Complete Time: 11:09 EDMS 10/28 11:05 Order name: Liver (Hepatic) Function; Complete Time: 11:09 EDWI 10/28 11:05 Order name: Troponin (Emerg Dept Use Only); Complete Time: 11:09 EDWI 10/28 11:05 Order name: NT PRO-BNP; Complete Time: 11:09 EDWI 10/28 11:05 Order name: Acetaminophen Level; Complete Time: 11:09 EDWI 10/28 11:05 Order name: Magnesium; Complete Time: 11:09 EDMS 10/28 11:05 Order name: Lipase; Complete Time: 11:09 EDWI 10/28 12:04 Order name: Alcohol Serum/Plasma; Complete Time: 12:36 EDWI 10/28 13:00 Order name: Lactate; Complete Time: 13:18 EDMS 10/28 10:07 Order name: XRAY Chest (1 view) [facility] 10/28 10:07 Order name: EKG; Complete Time: 10:08 [facility] 10/28 10:07 Order name: Cardiac monitoring; Complete Time: 10:12 [facility] 10/28 10:07 Order name: EKG - Nurse/Tech; Complete Time: 10:12 [facility] 10/28 10:07 Order name: IV Saline Lock; Complete Time: 10:16 [facility] 10/28 10:07 Order name: Labs collected and sent; Complete Time: 10:16 [facility] 10/28 10:07 Order name: O2 Per Protocol; Complete Time: 10:12 [facility] 10/28 10:07 Order name: O2 Sat Monitoring; Complete Time: 10:12 [facility] 10/28 10:07 Order name: Urine Dipstick-Ancillary (obtain specimen); Complete Time: 16:10 [facility] 10/28 10:07 Order name: CT Head Brain wo Cont [facility] 10/28 10:51 Order name: RAD; Complete Time: 11:09 EDWI 10/28 10:57 Order name: CT; Complete Time: 11:09 [facility] 10/28 11:01 Order name: IV Saline Lock - Large Bore; Complete Time: 17:11 [facility] 10/28 11:07 Order name: Labs - recollect needed; Complete Time: 14:35 10/28 11:11 Order name: Echo w/ Doppler [facility] 10/28 13:05 Order name: Troponin I; Complete Time: 13:18 [facility] 10/28 13:18 Order name: Procalcitonin; Complete Time: 13:24 [facility] 10/28 14:24 Order name: Central Line Kit; Complete Time: 14:56 [facility] 10/28 15:18 Order name: Urine Drug Screen [facility] 10/28 16:25 Order name: Urine Dipstick--Ancillary (enter results) bd Administered Medications: 11:38 Drug: Solu-CORTEF 100 mg Route: IVP; Site: right forearm; ph 12:00 Follow up: Response: No adverse reaction ph 11:39 Drug: NS 0.9% 1000 ml Route: IV; Rate: 1 bolus; Site: right forearm; ph 12:15 Follow up: IV Status: Completed infusion ph 12:45 Drug: Thiamine 100 mg Route: IV; Rate: bolus; Site: right forearm; ph 13:00 Follow up: Response: No adverse reaction; IV Status: Completed infusion ph 12:45 Drug: Pepcid 20 mg Route: IVP; Site: right forearm; ph 13:00 Follow up: Response: No adverse reaction ph 13:31 Drug: NS 0.9% 1000 ml Route: IV; Rate: 1 bolus; Site: right forearm; ph 14:30 Follow up: Response: No adverse reaction; IV Status: Completed infusion ph 14:57 Drug: Zosyn 3.375 grams Route: IVPB; Infused Over: 60 mins; Site: right forearm; ph 16:00 Follow up: Response: No adverse reaction; IV Status: Completed infusion ph 16:29 Drug: Zithromax 500 mg Route: IVPB; Infused Over: 1 hrs; Site: right forearm; ph 17:00 Follow up: Response: No adverse reaction; IV Status: Infusion continued upon admission ph 16:38 Not Given (Hemodynamic Parameters): Dopamine drip 5 mcg/kg/min - (DOPamine 400 mg, D5W ph 250 ml) IV at calculated rate continuous; Titrate to keep systolic blood pressure greater than 90mmHg Disposition: 10/28/18 10:49 Hospitalization ordered by Dennis Chaves for Inpatient Admission. Preliminary diagnosis are Abuse of non-psychoactive substances, Altered mental status, unspecified, Weakness, Hypotension, Volume depletion, Pneumonia due to other specified bacteria. - Bed requested for Intensive Care Unit. - Status is Inpatient Admission. ph - Condition is Fair. - Problem is new. - Symptoms have improved. UTI on Admission? No Signatures: Dispatcher [employer] EDMS Kaylin Montes Corey, MD MD cha Hall, Patricia, RN RN ph Fitzgerald, Diane, RN RN df Corrections: (The following items were deleted from the chart) 14:46 10:49 Hospitalization Ordered by Dennis Chaves MD for Inpatient Admission. Preliminary df diagnosis is Abuse of non-psychoactive substances; Altered mental status, unspecified; Weakness; Hypotension; Volume depletion; Pneumonia due to other specified bacteria. Bed requested for Intensive Care Unit. Status is Inpatient Admission. Condition is Fair. Problem is new. Symptoms have improved. UTI on Admission? No. samira 17:11 10:45 Messer ordered. [facility] ph 17:26 14:46 10/28/2018 10:49 Hospitalization Ordered by Dennis Chaves MD for Inpatient ph Admission. Preliminary diagnosis is Abuse of non-psychoactive substances; Altered mental status, unspecified; Weakness; Hypotension; Volume depletion; Pneumonia due to other specified bacteria. Bed requested for Intensive Care Unit. Status is Inpatient Admission. Condition is Fair. Problem is new. Symptoms have improved. UTI on Admission? No. df
--- NOTE | 2018-10-28 10:50 | ER ---
Nurse's Notes [facility] Name: Pratibha Jennings Age: 53 yrs Sex: Female : 1965 Arrival Date: 10/28/2018 Time: 10:04 Bed 3 Private MD: Diagnosis: Abuse of non-psychoactive substances;Altered mental status, unspecified;Weakness;Hypotension;Volume depletion;Pneumonia due to other specified bacteria Presentation: 10/28 10:04 Presenting complaint: EMS states: EMS called by for AMS, reported pt was in and ph out of consciousness, also reports that pt has been having twitching/muscle spasms and has had repeated falls over the past 2-3 days, multiple prescriptions for narcotic pain killers found in bathroom, 2 scripts for morphine found empty, 1 script for oxycodone 60mg filled 10/25 w/ 40 pills missing out of 60 dispensed, OxyContin 60 mg filled 09/28 w/ 60 tabs found empty, bottles also found for gabapentin, Ambien , and Prozac. Pt denies attempting to harm herself. Initial BP 70s/40s, dropped to 60s /40s when pt was moved, HR 60 bpm, Spo2 84% RA, improved to 100% on NRB, 1 liter NS administered, BGL 183. Transition of care: patient was not received from another setting of care. Onset of symptoms was October 28, 2018. Risk Assessment: Do you want to hurt yourself or someone else? Patient reports no desire to harm self or others. Initial Sepsis Screen: Does the patient meet any 2 criteria? Systolic BP < 90 mmHg. Mean Arterial Pressure (MAP) < 65. Altered Mental Status. Yes Does the patient have a suspected source of infection? No. Patient's initial sepsis screen is negative. Note Pt w/ splint to L arm for break approx 3 weeks ago, also has broken fingers to L hand that occurred approx 3 days ago r/t fall. Care prior to arrival: Medication(s) given: Normal saline infusion, 1000 mL, zofran 4 mg, IV initiated. 20 GA, in the right forearm, Glucose check: 183 Oxygen administered. via a non-rebreather mask. 10:04 Method Of Arrival: EMS: [facility] ph 10:04 Acuity: NUSRAT 2 ph Historical: - Allergies: 10:26 Iodine; topical; ph - Home Meds: 10:26 Ambien 5 mg Oral tab 1 tab once daily [Active]; amlodipine oral [Active]; atorvastatin ph Oral [Active]; Fluoxetine Oral [Active]; gabapentin 600 mg Oral tab 1 tab daily [Active]; 10:33 Hydroxyzine Oral [Active]; lidocaine patch [Active]; morphine 15 mg Oral tab 1 tab ph every 4 hours [Active]; Neurontin 600 mg Oral tab 1 tab daily [Active]; oxycodone-acetaminophen 10-650 mg Oral tab 1 tab every 6 hours [Active]; Propranolol Oral [Active]; Protonix Oral [Active]; tizanidine 4 mg Oral cap 1 cap [Active]; Zofran Oral [Active]; - PMHx: 10:33 ADD/ADHD; Back pain; Chronic pain; Degenerative disc disease; Hyperlipidemia; ph Hypertension; - PSHx: 10:33 BACK SURGERY; nerve stimulator; ph - Immunization history:: Adult Immunizations unknown. - Social history:: Smoking status: unknown. - Ebola Screening: : No symptoms or risks identified at this time. - Family history:: not pertinent. Screenin:24 Abuse screen: Denies threats or abuse. Denies injuries from another. Nutritional ph screening: No deficits noted. Tuberculosis screening: No symptoms or risk factors identified. Fall Risk Fall in past 12 months (25 points). Secondary diagnosis (15 points) impaired mobility, IV access (20 points). Ambulatory Aid- None/Bed Rest/Nurse Assist (0 pts). Gait- Impaired (20 pts.). Mental Status- Overestimates/Forgets Limitations (15 pts.). Total Carranza Fall Scale indicates High Risk Score (45 or more points). Fall prevention measures have been instituted. Side Rails Up X 2 Placed Close to Nursing Station Frequent Obs/Assessments Occuring Family Present and informed to notify staff if the need to leave the bedside As available patient and family educated on Fall Prevention Program and Strategies. Assessment: 10:20 General: Appears in no apparent distress. unkempt, Behavior is cooperative, drowsy. ph Pain: Complains of pain in back. Neuro: Level of Consciousness is awake, obeys commands, lethargic, Oriented to person, place, Pupils are sluggish. Cardiovascular: Capillary refill < 3 seconds in bilateral fingers Patient's skin is warm and dry. Rhythm is sinus rhythm. Respiratory: Airway is patent Respiratory effort is even, unlabored, Respiratory pattern is regular, symmetrical. GI: Reports constipation, nausea. Derm: Skin is intact, Skin is pink, warm \\T\\ dry. Musculoskeletal: Circulation, motion, and sensation intact. Range of motion: intact in all extremities, splint noted to L arm. 10:33 Reassessment: Dr Browne at bedside to speak w/ pt. ph 10:45 Reassessment: Patient appears in no apparent distress at this time. Patient and/or ph family updated on plan of care and expected duration. Pain level reassessed. Pt taken to CT via stretcher. 12:00 Reassessment: Patient appears in no apparent distress at this time. Patient and/or ph family updated on plan of care and expected duration. Pain level reassessed. Pt awake but remains drowsy, remains hypotensive, c/o back pain and requesting pain medication, informed pt that due to her low BP she is unable to receive narcotic pain medication at this time, at bedside. 12:30 Reassessment: Patient appears in no apparent distress at this time. Attempted to obtain ph urine from pt via Messer, pt refused catheter at this time, states, " I don't really have to pee right now and I don't want a catheter, I promise I'll try and pee in a few minutes.". 13:01 Reassessment: Patient appears in no apparent distress at this time. Patient and/or ph family updated on plan of care and expected duration. Pain level reassessed. Pt awake but remains drowsy, sitting up in bed eating lunch, tolerating well, at bedside, remains hypotensive at 76/57, awaiting ICU bed assignment. 14:00 Reassessment: Patient appears in no apparent distress at this time. No changes from ph previously documented assessment. 14:45 Reassessment: Patient appears in no apparent distress at this time. Pt assisted onto ph bedpan, urine sample obtained. 15:30 Reassessment: Patient appears in no apparent distress at this time. Dr Browne at bedside to place central line, pt tolerated well. 15:52 Reassessment: Dr Chaves at bedside to speak w/ pt and SO. ph 17:00 Reassessment: Patient appears in no apparent distress at this time. Patient and/or ph family updated on plan of care and expected duration. Pain level reassessed. Patient is alert, oriented x 3, equal unlabored respirations, skin warm/dry/pink. Pt taken to ICU via stretcher. Vital Signs: 10:00 BP 63 / 42; Pulse 62; Resp 14; Temp 97.7; Pulse Ox 93% on R/A; ph 10:30 BP 72 / 56; Pulse 60; Resp 16; Pulse Ox 97% on 4 lpm NC; ph 11:00 BP 74 / 52; Pulse 71; Resp 16; Pulse Ox 90% on 4 lpm NC; ph 11:30 BP 68 / 49; Pulse 68; Resp 18; Pulse Ox 93% on 4 lpm NC; ph 12:00 BP 70 / 48; Pulse 72; Resp 18; Pulse Ox 89% on 4 lpm NC; ph 12:30 BP 76 / 57; Pulse 71; Resp 18; Pulse Ox 97% on 4 lpm NC; ph 13:00 BP 78 / 60; Pulse 70; Resp 16; Pulse Ox 87% on 4 lpm NC; ph 13:30 BP 78 / 60; Pulse 70; Resp 14; Pulse Ox 95% on 4 lpm NC; ph 14:00 BP 61 / 44; Pulse 72; Resp 18; Pulse Ox 95% on 4 lpm NC; ph 14:30 BP 103 / 83; Pulse 77; Resp 18; Pulse Ox 91% on 4 lpm NC; ph 15:11 BP 102 / 58; Pulse 81; Resp 18; Pulse Ox 96% on 5 lpm NC; ph 15:30 BP 101 / 68; Pulse 80; Resp 18; Pulse Ox 94% on 5 lpm NC; ph 16:00 BP 102 / 58; Pulse 80; Resp 16; Pulse Ox 94% on 5 lpm NC; ph 16:38 BP 94 / 69; Pulse 78; Resp 16; Pulse Ox 93% on 5 lpm NC; ph 17:00 BP 88 / 61 (art line/); Pulse 76; Resp 16; Temp 97.8; Pulse Ox 94% on 5 lpm NC; ph ED Course: 10:04 Patient arrived in ED. ph 10:04 Baldemar Browne MD is Attending Physician. samira 10:12 EKG done, by ED staff, reviewed by Baldemar Browne MD. jb1 10:20 Triage completed. ph 10:24 Arm band placed on. ph 10:24 Patient has correct armband on for positive identification. Placed in gown. Bed in low ph position. Call light in reach. Side rails up X2. cardiac monitor technician on. Pulse ox on. NIBP on. Warm blanket given. 10:45 Patient moved to ND via stretcher. cw1 10:48 Belem Sandhu RN is Primary Nurse. ph 10:48 CT completed. Patient moved back from ND. cw1 10:48 Dennis Chaves MD is Hospitalizing Provider. samira 12:38 2D Echocardiogram with Doppler done by President. dt2 13:30 Assisted provider with central line placement. Set up central line tray. Triple lumen ph line placed in right femoral. Line placed by Baldemar Browne MD Placement verified by blood return, Dressed with Tegaderm, BioPatch in place Patient tolerated well. Before procedure, did Practitioner(s) obtain informed consent? Yes. Patient \\T\\ family education about procedure, CLABSI prevention and S/S of infection? Yes. Time-out/Briefing performed prior to start of procedure? Yes. Was handwashing/sanitizing done immediately prior to procedure? Yes. Was patient positioned to in a way to prevent air embolism? Yes. Was procedure site sterilized? Yes, with chlorhexidine. Was the site allowed to dry? Was local anesthetic and/or sedation utilized? Yes. During the procedure, did the Practitioner(s) maintain a sterile field? Yes. Were unused ports clamped during insertion? Yes. Was a 2nd qualified MD obtained after 3 unsuccessful insertion attempts? No. Was blood aspirated from each lumen? Yes. After the procedure, did the Practitioner(s) clean the site and apply a sterile dressing? Yes. 16:09 Urine collected: clean catch specimen, cloudy, kamini colored. jb1 17:14 Patient admitted, IV remains in place. ph Administered Medications: 11:38 Drug: Solu-CORTEF 100 mg Route: IVP; Site: right forearm; ph 12:00 Follow up: Response: No adverse reaction ph 11:39 Drug: NS 0.9% 1000 ml Route: IV; Rate: 1 bolus; Site: right forearm; ph 12:15 Follow up: IV Status: Completed infusion ph 12:45 Drug: Thiamine 100 mg Route: IV; Rate: bolus; Site: right forearm; ph 13:00 Follow up: Response: No adverse reaction; IV Status: Completed infusion ph 12:45 Drug: Pepcid 20 mg Route: IVP; Site: right forearm; ph 13:00 Follow up: Response: No adverse reaction ph 13:31 Drug: NS 0.9% 1000 ml Route: IV; Rate: 1 bolus; Site: right forearm; ph 14:30 Follow up: Response: No adverse reaction; IV Status: Completed infusion ph 14:57 Drug: Zosyn 3.375 grams Route: IVPB; Infused Over: 60 mins; Site: right forearm; ph 16:00 Follow up: Response: No adverse reaction; IV Status: Completed infusion ph 16:29 Drug: Zithromax 500 mg Route: IVPB; Infused Over: 1 hrs; Site: right forearm; ph 17:00 Follow up: Response: No adverse reaction; IV Status: Infusion continued upon admission ph 16:38 Not Given (Hemodynamic Parameters): Dopamine drip 5 mcg/kg/min - (DOPamine 400 mg, D5W ph 250 ml) IV at calculated rate continuous; Titrate to keep systolic blood pressure greater than 90mmHg Outcome: 10:49 Decision to Hospitalize by Provider. samira 17:12 Admitted to ICU accompanied by nurse, accompanied by tech, family with patient, via ph stretcher, room 3, with oxygen, on monitor, with chart, Report called to Macie MILLER 17:12 critical 17:12 Instructed on the need for admit. 17:26 Patient left the ED. ph Signatures: Yaya Edge jb1 Baldemar Browne MD MD cha Woodley, Crystal cw1 Belem Sadnhu RN RN Jayne Alfred dt2
[2018-10-28] MEDS ORDERED: MORPHINE 2 MG/ML SYR IV PRN (10:52)
--- NOTE | 2018-10-28 10:57 | RAD REPORT ---
EXAM DESCRIPTION: CT - Head Brain Wo Cont - 10/28/2018 10:48 am CLINICAL HISTORY: DIZZINESS Drowsiness COMPARISON: Head Brain Wo Cont dated 10/26/2018; HEAD BRAIN W O CONTRAST dated 02/03/2016 TECHNIQUE: All CT scans are performed using dose optimization technique as appropriate and may inclu de automated exposure control or mA/KV adjustment according to patient size. FINDINGS: No intracranial hemorrhage, hydrocephalus or extra-axial fluid collection.No areas of brai n edema or evidence of midline shift. The paranasal sinuses and mastoids are clear. The calvarium is intact. IMPRESSION: No acute intracranial abnormality.
[2018-10-28 10:58] LABS: ALT/SGPT 22 U/L (12-78); AST/SGOT 26 U/L (15-37); Albumin 2.1 g/dL (3.4-5.0); Alkaline Phosphatase 69 U/L (45-117); BUN Blood Urea Nitrogen 7 mg/dL (7-18); Bicarbonate 18 mmol/L (21-32); Bilirubin Direct < 0.1 mg/dL (0-0.2); Bilirubin Total 0.2 mg/dL (0.2-1.0); Glucose Level 159 mg/dL (74-106); Lipase 35 U/L (73-393); Magnesium 1.9 mg/dL (1.8-2.4); NT PRO-BNP 2242 pg/mL (<125); Potassium 3.6 mmol/L (3.5-5.1); Protein, Total 4.4 g/dL (6.4-8.2); Sodium Level 136 mmol/L (136-145); Troponin (Emerg Dept Use Only) < 0.02 ng/mL (0.0-0.045)
[2018-10-28] MEDS ORDERED: PIPER/TAZO/NS 3.375gm 3.375 GM/100 ML BAG ONE (11:06)
[2018-10-28] MEDS ORDERED: FAMOTIDINE 20 MG/2 ML VIAL IV ONE (12:06)
[2018-10-28] MEDS ORDERED: THIAMINE 200 MG/2 ML INJ ONE (12:06)
[2018-10-28] MEDS ORDERED: AZITHROMYCIN 500 MG/250 ML BAG ONE (12:06)
[2018-10-28] MEDS ORDERED: ONDANSETRON 4 MG/2 ML VIAL ONE (12:07)
[2018-10-28] MEDS: LEVALBUTEROL 1.25 MG/3 ML NEB NEB SCH ×2 (13:50→20:05)
[2018-10-28] MEDS: IPRATROPIUM BROM 0.5MG/2.5ML NEB SCH ×2 (13:50→20:05)
[2018-10-28] MEDS ORDERED: LEVALBUTEROL 1.25 MG/3 ML NEB ONE (13:57)
[2018-10-28] MEDS ORDERED: IPRATROPIUM BROM 0.5MG/2.5ML ONE (13:57)
[2018-10-28] MEDS ORDERED: DOPAMINE/D5W 400 MG/250 ML BAG IV PRN (14:27)
[2018-10-28 15:18] LABS: Barbiturates NEGATIVE (NEGATIVE); Benzodiazepines NEGATIVE (NEGATIVE); Cocaine NEGATIVE (NEGATIVE); METHAMPHETAM NEGATIVE (NEGATIVE); Methadone NEGATIVE (NEGATIVE); Opiates NEGATIVE (NEGATIVE); Phencyclidine NEGATIVE (NEGATIVE); THC Cannibis NEGATIVE (NEGATIVE)
[2018-10-28] MEDS ORDERED: PIPER/TAZO/NS 3.375gm 3.375 GM/100 ML BAG IVPB SCH (17:00)
[2018-10-28] MEDS: ONDANSETRON 4 MG/2 ML VIAL IV PRN (17:28)
[2018-10-28 17:59] VITALS: BMI 20.5
[2018-10-28] MEDS: NA CHLORIDE 0.9% 1,000 ML IV SCH ×2 (18:04→19:00)
[2018-10-28] MEDS: ENOXAPARIN 30 MG/0.3 ML SQ SCH (18:10)
[2018-10-28] MEDS: PIPER/TAZO/NS 3.375gm 3.375 GM/100 ML BAG IVPB SCH (18:10)
[2018-10-28] MEDS ORDERED: INFLUENZA VACCINE (for 3y+) 0.5 ML DOSE IMVAC ONE (19:00)
[2018-10-28 20:12] LABS: Urine Blood TRACE (NEG); Urine Glucose NEGATIVE (NEG); Urine Protein NEGATIVE (NEG)
[2018-10-28] MEDS: HYDROCORTISONE SUC 100 MG INJ IV SCH (20:33)
[2018-10-28] MEDS: FAMOTIDINE 20 MG/2 ML VIAL IV SCH (20:33)
[2018-10-28] MEDS: NICOTINE 14 MG/PAT TD SCH (20:46)
[2018-10-28] MEDS: MORPHINE *EXTENDED RELEASE* 15 MG TAB PO SCH (20:47)
[2018-10-28] MEDS ORDERED: ZOLPIDEM TARTRATE 5 MG TABLET PO SCH (21:00)
[2018-10-29] MEDS: PIPER/TAZO/NS 3.375gm 3.375 GM/100 ML BAG IVPB SCH ×3 (00:05→16:33)
--- NOTE | 2018-10-29 00:08 | CON ---
Chief Complaint: Low blood pressure. History Of Present Illness: Mrs. Jennings was getting dizzy, shaky, unable to stand and took her blood pressure, it was extremely low. She was brought to the emergency room. Her initial blood pressure there was also low, it was 63/42. She has had fluid resuscitation. Her blood pressure has improved. She is on blood pressure medications, also on a lot of narcotic pain medications. Her outpatient m edications have been Ambien, amlodipine, atorvastatin, fluoxetine, gabapentin, hydroxyzine, lidocaine patch, morphine, Neurontin, oxycodone, propranolol, Protonix, and Zofran. She has pain from degener ative spine disease, severe disk disease. She has had back surgery and nerve stimulator. She smokes roughly half pack per day and over the last 3 weeks, has eaten almost nothing and she states she los t 21 pounds. Her chest x-ray reveals diffusely prominent interstitial markings, seems to be a poor i nspiratory effort to me, but it could be that there is mild pulmonary edema, but I doubt it. I think she is actually dehydrated. A CAT scan of her head shows no acute intracranial abnormality. Echoca rdiogram is normal except for mild tricuspid regurgitation. Physical Examination: General: The patient is alert, oriented, pleasant. Vital Signs: Most recent blood pressure was 100/70, O2 saturation 86%. Heart: Regular rate and rhythm, going about 85 to 90 beats per minute, it was sinus on the monitor. Lungs: No crackles or wheeze. Extremities: No cyanosis, clubbing, or edema. Impression: Mrs. Jennings had low blood pressure because of taking lots of medicines with almost no or al intake for 3 weeks. I think she probably needs to be off all medications until she clearly demons trates she is hypertensive. The reason for her anorexia and weight loss is unclear. I would imagine that we will have to look into a lot of things to find out. I would be concerned that intraabdomina l process is present, we have not done a CT scan of the abdomen yet. It could be that all the pain m edicines have given her anorexia. Her laboratory exam does not seem to give us much in the way of us eful information. Her internal proBNP is elevated, that could be from anything. It is certainly not from poor left ventricular function. Procalcitonin is very high at 7.38, which would be consistent with systemic infection, but what the source of infection is, is not clear. Urinalysis is pending. So, she is a puzzling case, but I think no oral intake and continuing her blood pressure medicines is the cause of her hypotension. Thank you very much for the kind referral of Mrs. Jennings. I will follow her with you. GREG Voice ID: [id number] Report ID: [id number]
[2018-10-29] MEDS: ONDANSETRON 4 MG/2 ML VIAL IV PRN ×3 (00:43→20:10)
[2018-10-29] MEDS: IPRATROPIUM BROM 0.5MG/2.5ML NEB SCH ×2 (01:05→07:45)
[2018-10-29] MEDS: LEVALBUTEROL 1.25 MG/3 ML NEB NEB SCH ×2 (01:05→07:45)
--- NOTE | 2018-10-29 03:38 | HP ---
Date of Admission: 10/28/2018 Chief Complaint: Confusion, weakness, and falling down. History Of Present Illness: A 53-year-old female patient who was brought in today to emergency room via ambulance after called 911 because of above- mentioned problems. The patient was evaluated in emergency room and ER physician contacted me requesting admission to ICU. I came out to see patient in the emergency room and the patient's was present at bedside with her. As per information that I have learnt from the patient as well as the patient's is that last 2-3 days the patient has been having increasing generalized weakness, she fell down couple of times and she actually had a fracture of the left wrist area from previous fall and she was wearing a brace on her left forearm, wrist area and when she fell down on , she actually suffered another fracture and has a partial cast on the forearm that was applied in the emergency room. In last 2 days, she was having increasing generalized weakness. She gets up and is very unsteady on her feet and the patient's noted that her mental status is not normal in last couple of days but today it was lot worse to the extent that he was really concerned about her and he called 911, and patient was brought into the emergency room. On arrival to the emergency room, her initial systolic blood pressure was 68. The patient has received altogether about 3 L of IV fluid in the emergency room. She was still hypotensive when I saw her, her systolic blood pressure was 98. After adequate amount of IV fluid given to her, the ER physician had started her on vasopressor medication. The patient has ongoing chronic nausea problem which is nothing new. She also has chronic constipation problem. Denies any fever but has some chills and reported that she was feeling very shaky in last day or two days but no fever and said that her temperature was low. Lowest temperature recorded at home was 37 degrees Fahrenheit. No cough, cold, or congestion. The patient had EGD done this week by Dr. Sharp on [address] Sharp has planned to do upper GI series on outpatient basis as the patient's says that he is suspecting some part of narrowing or stricture of her small intestine. We will communicate with Dr. Sharp to try to get some more information. The patient sees pain management physician, Dr. Diallo and gets her narcotic pain medication for chronic pain from him. Last visit with him was on 10/25/2018. 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 Constitutional: As mentioned above. GI: As mentioned above. All other systems reviewed and negative. Past Medical History: Significant for hypertension, mixed hyperlipidemia, gastroesophageal reflux disease, nausea, hyponatremia, and pain. Past Surgical History: Back surgery x5, spinal cord stimulator placement, bilateral knee surgery, wisdom teeth removal, tonsillectomy, laparoscopic surgery for endometriosis and excision of lipoma. Allergies: SHE IS LISTED ALLERGIC TO TYLENOL CAUSING LIVER TOXICITY. Family History: Significant for hypertension, aneurysm of thoracic aorta and diabetes mellitus. Social History: Positive for smoking, use of alcohol socially. Medications: Amlodipine 5 mg p.o. daily, Ambien 5 mg at bedtime as needed, atorvastatin 20 mg p.o. daily, fluoxetine 40 mg p.o. daily, gabapentin 600 mg p.o. 3 times a day, lidocaine patch p.r.n., morphine ER 15 mg every 12 hours, oxycodone 10 mg every 6 hours as needed, pantoprazole 40 mg p.o. daily, Symbicort inhaler 2 puffs 2 times a day, tizanidine 4 mg every 8 hours as needed. Physical Examination: Vital Signs: When she first came into emergency room blood pressure was 63/42, pulse 62, respiratory rate 14, temperature 97.7, oxygen saturation 93%. Last systolic blood pressure when I saw her was 98. General: Awake, alert, oriented, not in distress. HEENT: Head atraumatic, normocephalic. Conjunctivae nonerythematous. Sclerae white. Mouth, no thrush or edema noted. Ears/Nose, no mass, lesion, discharge noted. Neck: Supple. No JVD, lymph nodes, bruit, thyromegaly noted. Lungs: Bilateral good equal air entry. Clear to auscultation. No rhonchi. No rales. Heart: Normal heart sounds, no murmur or gallop. Abdomen: Soft, bowel sounds normal. No guarding, rigidity, tenderness, mass, hepatosplenomegaly, distention, or bruit noted. Extremities: No leg edema. No calf tenderness. Skin: No rash, ulcer, cellulitis. Lymphatics: No lymph node enlargement in neck, supraclavicular, infraclavicular region. Neuro: No focal neurological deficit. Chest: Unremarkable. External Genitalia: Deferred. Rectal: Deferred. Laboratory Data: White count 15.1, hemoglobin 10, platelets 233. Sodium 136, potassium 3.6, chloride 109, bicarb 18, BUN 7, creatinine 0.7, glucose 159. Liver function tests unremarkable. Troponin less than 0.02 x 2 sets. Procalcitonin 7.38. Lipase 35. Lactic acid 1.1. INR 0.91. Urine toxicology screen was reported as negative. Salicylate 3.9, acetaminophen level 13, alcohol level 3. Chest x-ray: Diffusely prominent interstitial lung markings which might be due to either interstitial pulmonary edema or interstitial pneumonia. Heart size is normal. CAT scan of the brain without contrast: No acute abnormality. Echocardiogram: Preliminary report was reported as normal ejection fraction. Final report pending. Impression: 1. Hypotension. 2. Altered mental status secondary to above. 3. Rule out sepsis. 4. Chronic narcotic drug use. 5. Chronic pain. 6. Chronic nausea. 7. Chronic constipation. 8. Gastroesophageal reflux disease. 9. Mixed hyperlipidemia. 10. Hypertension. 11. Chronic back pain. Plan: Admit the patient to hospital for further evaluation and management of this problem. The patient will be admitted to intensive care unit. She is appropriate for inpatient and is expected to spend 2 midnights in hospital. She has received approximately 3 L of IV fluid in the emergency room. We will continue her IV fluid per order, continue empiric antibiotics per order and IV steroids per order. Just prior to my arrival, Dr. Browne had placed a central line in her right groin area. We will go ahead and use DVT prophylaxis using Lovenox and SCD. Consult Dr. Pena. I had a long discussion with the patient's who was at bedside and patient and my concern is if she is using more than prescribed amount of narcotic medications or not, and when I asked, I found out that her last prescription for oxycodone was filled on 2017 and one particular bottle that EMS was looking at from 10/25/2018 when prescription was filled, it had 60 tablets filled and only 20 tablets left in the bottle. When we asked the patient if she took more than prescribed amount, the patient informs me that she has not taken more than prescribed amount. I still have doubts about if she is telling us correct information or not and also has same concerns. In any case, what I have asked the patient's is to go home and look at all her medication bottles that she has from her pain management physician Dr. Landrum and get the details on all those medication for me which are when particular narcotic prescription was filled with number of tablets filled and how many tablets left in the bottle and for him to bring all this information back for me to review as at this point our two working diagnoses are one is either sepsis or other one is overuse of narcotic pain meds. I did inform the patient and her that upon discharge from the hospital, she should visit with her pain management physician and she should start talking to him about how he can help her to slowly withdraw to discontinue narcotic pain medication use and patient's also informed her the same thing that overuse or abuse of narcotic pain medication can result in somebody's . Her chronic nausea and chronic constipation problem, until and unless proven otherwise I will have to believe that is because of her narcotic pain medication use. The patient does not look septic at all. She is lying in bed, awake, alert, oriented x3 like her normal usual self. MCKENZIE/MODL Voice ID: [id number] CRISTY
[2018-10-29] MEDS: NA CHLORIDE 0.9% 1,000 ML IV SCH ×3 (04:32→14:26)
[2018-10-29 05:42] LABS: Absolute Lymphocytes (CBC) 1.1 K/uL (0.7-4.9); Absolute Monocytes 1.1 K/uL (0.1-1.3); Absolute Neutrophil 20.6 K/uL (1.8-8.0); Basophils % 0.2 % (0-1.3); Hematocrit 30.5 % (36.0-45.0); Lymphocytes % 4.8 % (15.3-44.8); MCV 91.6 fL (80-100); MPV 8.1 fL (7.6-11.3); Monocytes % 4.9 % (3.3-12.3); RBC Red Blood Cell Count 3.33 M/uL (3.86-4.86)
[2018-10-29 05:58] LABS: BUN Blood Urea Nitrogen 8 mg/dL (7-18); Bicarbonate 20 mmol/L (21-32); Glucose Level 120 mg/dL (74-106); Sodium Level 139 mmol/L (136-145)
[2018-10-29 06:17] LABS: Anisocytosis 1+; Blood Morphology Comment NOT SEEN (NOT SEEN); Platelet Estimate ADEQ; Toxic Granulation PRESENT; Urine White Blood Cell Casts OK
--- NOTE | 2018-10-29 06:18 | EKG ---
Test Date: 2018-10-28 Test Time: 10:06:44 Marine Operations Coordinator: VALERIE MEASUREMENT RESULTS: Intervals: Rate: 62 MN: 146 QRSD: 76 QT: 448 QTc: 454 [place]: P: 40 MN: 146 QRS: 56 T: 86 INTERPRETIVE STATEMENTS: Normal sinus rhythm Nonspecific T wave abnormality Abnormal ECG Compared to ECG 10/26/2018 23:33:01 Prolonged QT interval no longer present T-wave abnormality still present Electronically Signed On 10-29-18 06:17:07 WASHER CUTTER by Lei Camp
--- NOTE | 2018-10-29 07:33 | RAD REPORT ---
EXAM DESCRIPTION: RAD - Chest Single View - 10/29/2018 6:29 am CLINICAL HISTORY: Chest pain COMPARISON: October 28 TECHNIQUE: AP portable chest image was obtained 0541 hours . FINDINGS: There has been progression of the diffuse interstitial pattern since prior day imaging. A few scattered areas of airspace opacification are present. Heart and vasculature are normal. No measu rable pleural effusion and no pneumothorax. No acute bony abnormality seen. No acute aortic findings suspected. IMPRESSION: Progressive interstitial opacification from prior day imaging. Additional scattered airs pace opacities are present. Findings favor progressive pneumonia but could also be an asymmetric progression of noninfectious johnson maRigoberto
[2018-10-29] MEDS: MORPHINE *EXTENDED RELEASE* 15 MG TAB PO SCH ×2 (08:32→20:44)
[2018-10-29] MEDS: ASPIRIN EC 81 MG TAB PO SCH (08:32)
[2018-10-29] MEDS: NICOTINE 14 MG/PAT TD SCH (08:33)
[2018-10-29] MEDS: HYDROCORTISONE SUC 100 MG INJ IV SCH (08:33)
[2018-10-29] MEDS: FAMOTIDINE 20 MG/2 ML VIAL IV SCH (08:33)
[2018-10-29] MEDS ORDERED: AZITHROMYCIN IV 500 MG in NA CHLORIDE 0.9% 250 ML IVPB SCH (09:00)
--- NOTE | 2018-10-29 09:43 | P.CNS ---
Date of Consult: 10/29/18 Reason for Consult: Hypotension Chief Complaint: Hypotension History of Present Illness: Patient is 53 years of age admitted from the emergency room for hypotension and weakness the problems 2-3 days prior to admission recently had a fall fractured her left wrist on to be hypotension in the emergency room was bolused with IV fluids patient has a history of chronic constipation nausea seeing a GI specialist also on chronic pain medications seeing pain management apparently she take and significant quantities of her pain medications Have patient smokes although denies history of COPD chest x-ray suggestive denies any fever or chills. Patient's pro calcitonin white count elevated Chest x-rays shows COPD changes Allergies TOPICAL IODINE Allergy (Mild, Uncoded 10/28/18 19:22) Hives/Rash Home Medications: Dexlansoprazole [Dexilant] 60 mg PO DAILY 02/04/16 Fluoxetine HCl 40 mg PO DAILY 02/04/16 Gabapentin 600 mg PO TID 02/04/16 Lidocaine 1 patch TD DAILY 02/04/16 Morphine *Extended Release* [MS Contin] 15 mg PO BID PRN #40 tab 02/04/16 Tizanidine HCl 4 mg PO Q6H 02/04/16 Zolpidem Tartrate 5 mg PO BEDTIME 02/04/16 Enalapril [Vasotec] 10 mg PO DAILY 06/21/17 - Past Medical/Surgical History Diabetic: No -: htn -: chronic back pain -: anxiety -: hyperlipidemia -: degenerative disc disease -: spinal implant stimulator -: back surgery (herniated disc) -: left wrist - Family History Mother Medical History: Hypertension, Diabetes Notes: hyperlipidemia Father History Unknown: Yes - Social History Smoking Status: Unknown if ever smoked Alcohol use: Yes CD- Drugs: No Caffeine use: Yes Place of Residence: Home Review of Systems 10-point ROS is otherwise unremarkable General: Weakness Gastrointestinal: Nausea, Constipation Physical Examination Temp Pulse Resp BP Pulse Ox 97.6 F 95 H 29 H 138/66 98 10/29/18 04:00 10/29/18 06:00 10/29/18 06:00 10/29/18 06:00 10/29/18 06:00 General: Alert, Oriented x3, Cachectic Neck: Supple Respiratory: Clear to auscultation bilaterally Cardiovascular: No edema, Normal S1 S2 Gastrointestinal: Normal bowel sounds, Soft and benign, No ascites Musculoskeletal: No swelling Integumentary: No rashes, No breakdown Laboratory Data (last 24 hrs) 10/28/18 10:18: PT 10.7, INR 0.91, APTT 18.2 L 10/28/18 10:18: WBC 15.1 H, Hgb 10.0 L D, Hct 29.7 L D, Plt Count 233 D 10/28/18 10:18: Sodium 136, Potassium 3.6, BUN 7, Creatinine 0.70, Glucose 159 H , Magnesium 1.9, Total Bilirubin 0.2, AST 26, ALT 22, Alkaline Phosphatase 69, Lipase 35 L - Problems (1) Hypotension Current Visit: Yes Status: Acute Plan: Patient is 53 years of age admitted with hypotension possible sepsis urinalysis no evidence of an infection patient's cultures are pending Dc azithromycin steroids blood pressure is not satisfactory possible medication induced hypotension abdominal pelvic CT done on October 16 was negative Qualifiers: Hypotension type: idiopathic hypotension Qualified Code(s): I95.0 - Idiopathic hypotension
[2018-10-29] MEDS ORDERED: POTASSIUM CL SA 10 MEQ TAB PO ONE (12:12)
[2018-10-29] MEDS: GABAPENTIN 300 MG CAP PO SCH ×3 (12:23→20:44)
[2018-10-29 14:18] LABS: Barbiturates NEGATIVE (NEGATIVE); Benzodiazepines NEGATIVE (NEGATIVE); Cocaine NEGATIVE (NEGATIVE); METHAMPHETAM NEGATIVE (NEGATIVE); Methadone NEGATIVE (NEGATIVE); Opiates POSITIVE (NEGATIVE); Phencyclidine NEGATIVE (NEGATIVE); THC Cannibis NEGATIVE (NEGATIVE)
[2018-10-29] MEDS ORDERED: HOME MED 1 EA UNK (Oxycodone Hcl [Oxycontin] 10 MG) PO PRN (15:37)
[2018-10-29] MEDS ORDERED: OXYCODONE HCL 5 MG TAB PO PRN (15:52)
[2018-10-29] MEDS ORDERED: NA CHLORIDE 0.9% 1,000 ML IV SCH (16:00)
--- NOTE | 2018-10-29 16:06 | PN ---
Subjective: Mrs. Jennings seems to be doing better with respect to her blood pressure. I attribute th at mostly to rehydration, IV fluids. She is still not taking in any fluids. I wonder what the reaso n for her anorexia is. There are many possibilities. I think it might be very beneficial to do a tr iple contrast CT of the abdomen to see what we learn from that. Thank you very much for your kind referral of Mrs. Jennings. I will follow her with you. GREG Voice ID: [id number] Report ID: [id number]
--- NOTE | 2018-10-29 16:12 | PN ---
Date of Progress Note: 10/29/2018 Subjective: The patient was seen this morning for followup. She was in ICU, hemodynamically stable. Systolic blood pressure was around 116-119 range. Heart rate around 80-90. Not in any respiratory distress. Not on any vasopressor medication. She was complaining of chronic back pain and was requ esting her medication to be resumed. She is already on her morphine, which was ordered for her yeste rday, and gabapentin was restarted today. Cardiology and Pulmonary consultation are appreciated. Objective: Vital Signs: Reviewed. HEENT: Unremarkable. Lungs: Clear to auscultation. No rhonchi or rales. Not in any distress. Heart: Heart sounds normal. Abdomen: Soft. Bowel sounds normal. No guarding or rigidity except she is complaining of some abdo elena pain and some vague tenderness in her abdomen. Extremities: No leg edema. Laboratory Data: White count 22.9, hemoglobin 10.3, platelets 307. Sodium 139, potassium 3, chlorid e 110, bicarb 20, BUN 8, creatinine 0.50, glucose 120. Troponin less than 0.02 x3. Chest x-ray show s progressive interstitial opacification from prior day imaging. Impression: 1.Pneumonia. 2.Hypotension, resolved. 3.Chronic back pain. 4.Chronic narcotic medication use. 5.Chronic constipation. 6.Chronic nausea. 7.Gastroesophageal reflux disease. Plan: We will go ahead and keep her in ICU. Continue her morphine per order. Ambien 5 mg at bedtim e was started yesterday as she takes at home to help with her insomnia problem. We will resume her g abapentin 600 mg three times a day, the way she takes it at home. We will continue to follow up with client project coordinator for her pneumonia problem. Her elevated white count, it could be due to combination o f infection along with IV steroid that she started to receive when she came into ER yesterday. The p atient is hemodynamically stable. She has chronic abdominal discomfort, nausea, and constipation. S he is under the care of pharmacy consultant for that, in fact, when I saw her about approximately 2 we eks ago or so, she was sent to the emergency room at that time, and her workup done in the emergency room was unremarkable including all her blood work, and CAT scan of abdomen was done at that time, wh ich was unremarkable. The patient is not compliant with her medications. When I saw her 2 weeks ago , she basically returned to the office for followup after a few months of being noncompliant for foll owup visit as well as medications, and at that time, when I saw her, she was sent to the emergency ro om. Subsequently, I advised her to start taking her amlodipine 5 mg daily along with atorvastatin an d pantoprazole. Instead of taking amlodipine, the patient started to take her propranolol that she h ad at home, and when I saw her last week, I did advise her to take medication as prescribed, which is amlodipine and not propranolol. In the past, her systolic blood pressure has gone up anywhere from 170-200 range, requiring multiple antihypertensive medication. We do not have information about her medication use at home from the patient's . As I advised him yesterday, he will bring all thi s information about her use of narcotic pain medication at home to see whether she is using more than prescribed amount or not causing all this ongoing not only problem with nausea and constipation, but also of course, this recent presentation of hypotension as I am concerned about that particular scen mehul. I will see her tomorrow for followup. We will keep her in ICU today. MCKENZIE/MODL Voice ID: [id number] Report ID: [id number]
[2018-10-29] MEDS: ENOXAPARIN 30 MG/0.3 ML SQ SCH (16:33)
[2018-10-29] MEDS: KCL 20 MEQ/100 mL IVPB 20 MEQ/100 ML BAG IV SCH ×2 (20:44→23:08)
[2018-10-29] MEDS: ZOLPIDEM TARTRATE 5 MG TABLET PO PRN (23:08)
[2018-10-30] MEDS: PIPER/TAZO/NS 3.375gm 3.375 GM/100 ML BAG IVPB SCH ×3 (00:58→16:55)
[2018-10-30] MEDS: KCL 20 MEQ/100 mL IVPB 20 MEQ/100 ML BAG IV SCH ×3 (00:59→08:42)
[2018-10-30] MEDS: ONDANSETRON 4 MG/2 ML VIAL IV PRN ×4 (02:56→20:05)
[2018-10-30 05:54] LABS: Absolute Lymphocytes (CBC) 1.2 K/uL (0.7-4.9); Absolute Monocytes 1.7 K/uL (0.1-1.3); Absolute Neutrophil 18.9 K/uL (1.8-8.0); Basophils % 0.1 % (0-1.3); Hematocrit 29.8 % (36.0-45.0); Lymphocytes % 5.5 % (15.3-44.8); MCH 31.7 pg (27.0-35.0); MPV 8.1 fL (7.6-11.3); Monocytes % 7.7 % (3.3-12.3); RBC Red Blood Cell Count 3.31 M/uL (3.86-4.86)
[2018-10-30 06:21] LABS: BUN Blood Urea Nitrogen 5 mg/dL (7-18); Bicarbonate 24 mmol/L (21-32); Glucose Level 116 mg/dL (74-106); Magnesium 1.8 mg/dL (1.8-2.4); Potassium 3.1 mmol/L (3.5-5.1); Sodium Level 138 mmol/L (136-145)
[2018-10-30] MEDS ORDERED: MAGNESIUM SULFATE 1 gm IVPB 1 GM/100 ML BAG IV ONE (07:00)
[2018-10-30] MEDS: TIOTROPIUM 5 SPRAYS/INHALER IH SCH (08:40)
[2018-10-30] MEDS: DULERA 200/5 (MOMETASONE/FORMOTEROL) INHALER IH SCH ×2 (08:40→20:16)
[2018-10-30] MEDS: FLUOXETINE 20 MG CAP PO SCH (08:41)
[2018-10-30] MEDS: MORPHINE *EXTENDED RELEASE* 15 MG TAB PO SCH ×2 (08:42→20:15)
[2018-10-30] MEDS: GABAPENTIN 300 MG CAP PO SCH ×3 (08:42→20:15)
[2018-10-30] MEDS: ASPIRIN EC 81 MG TAB PO SCH (08:42)
[2018-10-30] MEDS: LIDOCAINE 5% PATCH TD SCH (08:43)
[2018-10-30] MEDS: NICOTINE 14 MG/PAT TD SCH (08:43)
[2018-10-30] MEDS: ENSURE HIGH PROTEIN 237 ML CAN PO SCH ×4 (09:00→20:16)
[2018-10-30] MEDS ORDERED: FLUOXETINE HCL 40 MG PO SCH (09:00)
--- NOTE | 2018-10-30 09:32 | RAD REPORT ---
EXAM DESCRIPTION: Jesus Single View10/30/2018 8:50 am CLINICAL HISTORY: Chest pain COMPARISON: October 29, 2018 FINDINGS: Mild left basilar alveolar opacity has developed. Small left pleural effusion Diffuse bilateral interstitial lung opacities mildly worsened. Heart is normal size IMPRESSION: Development of a mild left basilar alveolar opacity may represent pneumonia. Additional bilateral pulmonary opacities may represent additional pneumonia or pulmonary edema
[2018-10-30] MEDS: OXYCODONE HCL 5 MG TAB PO PRN (09:46)
--- NOTE | 2018-10-30 09:48 | ECHO ---
HEIGHT: 5 ft 4 in WEIGHT: 120 lb 0 oz DATE OF STUDY: 10/28/[address]: Baldemar Browne MD 2-DIMENSIONAL: YES M.MODE: YES DOPPLER: YES COLOR FLOW: YES TDS: NO PORTABLE: NO DEFINITY: NO BUBBLE STUDY: NO DIAGNOSIS: CHEST CONGESTION CARDIAC HISTORY: CATHERIZATION: NO SURGERY: NO PROSTHETIC VALVE: NO PACEMAKER: NO MEASUREMENTS (cm) DIASTOLIC (NORMALS) SYSTOLIC (NORMALS) IVSd 1.1 (0.6-1.2) LA Diam 4.3 (1.9-4.0) LVEF 63% LVIDd 3.2 (3.5-5.7) LVIDs 2.2 (2.0-3.5) %FS 33% LVPWd 1.2 (0.6-1.2) Ao Diam 2.5 (2.0-3.7) 2 DIMENSIONAL ASSESSMENT: RIGHT ATRIUM: NORMAL LEFT ATRIUM: DILATED RIGHT VENTRICLE: NORMAL LEFT VENTRICLE: NORMAL TRICUSPID VALVE: NORMAL MITRAL VALVE: NORMAL PULMONIC VALVE: NORMAL AORTIC VALVE: NORMAL PERICARDIAL EFFUSION: NONE AORTIC ROOT: NORMAL LEFT VENTRICULAR WALL MOTION: NORMAL DOPPLER/COLOR FLOW: MILD TRICUPSID REGURGITATION. NORMAL RIGHT VENTRICULAR SYSTOLIC PRESSURE. COMMENTS: NORMAL 2D ECHOCARDIOGRAM. MILD TRICUPSID REGURGITATION. TECHNOLOGIST: Yaneth LUI
[2018-10-30] MEDS: TIZANIDINE 4 MG TABLET PO PRN (14:38)
[2018-10-30] MEDS: ENOXAPARIN 30 MG/0.3 ML SQ SCH (16:55)
[2018-10-30] MEDS ORDERED: POTASSIUM CL SA 10 MEQ TAB PO ONE (19:00)
[2018-10-31] MEDS: PIPER/TAZO/NS 3.375gm 3.375 GM/100 ML BAG IVPB SCH (01:10)
[2018-10-31] MEDS: ZOLPIDEM TARTRATE 5 MG TABLET PO PRN ×2 (01:16→21:02)
--- NOTE | 2018-10-31 01:29 | PN ---
Date of Progress Note: 10/30/2018 Subjective: The patient was seen this morning for followup. She was lying in bed in ICU, not in dis tress, was complaining of her chronic back pain, and was also getting for pain medication. Continues to have abdominal pain and nausea. No vomiting. Objective: Vital Signs: Reviewed. HEENT: Unremarkable. Lungs: Some scattered rales noted in lower lung lopez, left more than right. Not in respiratory di stress. Heart: Sounds normal. Abdomen: Soft. Bowel sounds normal. No guarding, rigidity, tenderness, or distention except she is complaining of some pain upon palpation in the upper abdomen. No rebound, tenderness. Extremities: No leg edema. Laboratory Data: White count 21.9, hemoglobin 10.5, platelets 310. Sodium 138, potassium 3.1, chlor angela 105, bicarb 24, BUN 5, creatinine 0.4, glucose 116. Procalcitonin 1.1. TSH 0.21. Blood culture remains negative. Chest x-ray shows development of mild left basilar alveolar opacity. Additional bilateral pulmonary opacity representing pneumonia or pulmonary edema. Echocardiogram has shown ejec tion fraction 63%. Unremarkable echocardiogram. Impression: 1.Pneumonia. 2.Chronic obstructive pulmonary disease. 3.Nausea, chronic. 4.Constipation, chronic. 5.Chronic narcotic drug use. 6.Hypokalemia. 7.Anemia. 8.Hypertension. 9.Chronic back pain. Plan: The patient's did bring her medication details from home and as far as narcotic pain m edication is concerned, the patient got refill on her morphine and oxycodone from her pain management physician on 09/28/2018 and this was 1 month supply and there were no pills left in that particular bottle, so she has used a per month supply probably appropriately during the month of September. She did get 60 tablets of oxycodone on 10/24/2018 and out of that only 12 tablets left, so she has consum ed 48 tablets out of that supply, and she use this medication over period of 3 days, and I strongly b kirilleve that that is the reason why she got into situation where she is currently in hospital. I did talk to Dr. Pena this morning, and after knowing about all this, he also has the same opinion. I n any case, the patient is medically stable for transfer out of ICU to regular room. See copy of tra nsfer order for details and Dr. Pena has suggested her to discontinue her steroid use. We will c ontinue current antibiotics and I will go ahead and add inhaler per order and consult Physical Therap y. Continue Lovenox for DVT prophylaxis. We will see her tomorrow for followup. We will repeat blo od work tomorrow, replace electrolytes per protocol. MCKENZIE/MODL Voice ID: [id number] Report ID: [id number]
[2018-10-31] MEDS: ACETAMINOPHEN 500 MG TAB PO PRN ×2 (03:26→17:46)
[2018-10-31 03:43] LABS: Absolute Lymphocytes (CBC) 1.1 K/uL (0.7-4.9); Absolute Monocytes 1.5 K/uL (0.1-1.3); Absolute Neutrophil 18.9 K/uL (1.8-8.0); Basophils % 0.2 % (0-1.3); Hematocrit 28.7 % (36.0-45.0); MCV 89.4 fL (80-100); MPV 7.3 fL (7.6-11.3); RBC Red Blood Cell Count 3.21 M/uL (3.86-4.86)
[2018-10-31 03:52] LABS: BUN Blood Urea Nitrogen 8 mg/dL (7-18); Bicarbonate 25 mmol/L (21-32); Glucose Level 128 mg/dL (74-106); Magnesium 1.8 mg/dL (1.8-2.4); Potassium 3.2 mmol/L (3.5-5.1); Sodium Level 134 mmol/L (136-145)
[2018-10-31] MEDS ORDERED: MAGNESIUM SULFATE 1 gm IVPB 1 GM/100 ML BAG IV ONE (05:06)
[2018-10-31] MEDS: MORPHINE *EXTENDED RELEASE* 15 MG TAB PO SCH ×2 (07:20→19:27)
[2018-10-31] MEDS: LIDOCAINE 5% PATCH TD SCH (08:19)
[2018-10-31] MEDS: Levofloxacin500mg IV 500 MG/100 ML BAG IV SCH (08:20)
[2018-10-31] MEDS ORDERED: VANCOMYCIN 1.25 GM in NA CHLORIDE 0.9% 250 ML IVPB ONE (09:00)
[2018-10-31] MEDS ORDERED: POTASSIUM CL SA 10 MEQ TAB PO ONE (09:00)
[2018-10-31] MEDS ORDERED: VANCOMYCIN 500 MG in NA CHLORIDE 0.9% 100 ML IVPB SCH (09:00)
[2018-10-31] MEDS: ONDANSETRON 4 MG/2 ML VIAL IV PRN ×4 (09:18→22:40)
[2018-10-31] MEDS: NICOTINE 14 MG/PAT TD SCH (09:21)
[2018-10-31] MEDS: GABAPENTIN 300 MG CAP PO SCH ×3 (09:22→19:27)
[2018-10-31] MEDS: FLUOXETINE 20 MG CAP PO SCH (09:23)
[2018-10-31] MEDS: ASPIRIN EC 81 MG TAB PO SCH (09:23)
[2018-10-31] MEDS: TIOTROPIUM 5 SPRAYS/INHALER IH SCH (09:24)
[2018-10-31] MEDS: DULERA 200/5 (MOMETASONE/FORMOTEROL) INHALER IH SCH ×2 (09:25→19:38)
[2018-10-31] MEDS: ENSURE HIGH PROTEIN 237 ML CAN PO SCH ×3 (09:25→19:27)
[2018-10-31] MEDS: TIZANIDINE 4 MG TABLET PO PRN (09:51)
[2018-10-31] MEDS ORDERED: MAGNESIUM HYDROXIDE 8% 30 ML PO ONE (10:28)
[2018-10-31] MEDS: OXYCODONE HCL 5 MG TAB PO PRN ×2 (11:28→23:29)
--- NOTE | 2018-10-31 13:31 | PN ---
Admitted to Dr. Chaves's service on 10/28/2018, and had been followed by Dr. Camp for hypertension. An echocardiogram that was done yesterday was perfectly normal with normal ejection fraction, no effu deidre, no wall motion abnormalities, or valvular heart disease. There was no pulmonary hypertension. Her blood pressures improved. A triple contrast CT scan of the abdomen had been planned by Dr. Bryson mario for anorexia. I will discuss the case further with Dr. Chaves, but we will sign off her case for no w. KAMILLA/TANI Voice ID: [id number] Report ID: [id number]
[2018-10-31] MEDS: ENOXAPARIN 30 MG/0.3 ML SQ SCH (17:00)
[2018-10-31] MEDS: VANCOMYCIN/NS 1 gm 1 GM/250 ML BAG IV SCH (19:26)
--- NOTE | 2018-11-01 00:55 | PN ---
Date of Progress Note: 10/31/2018 Subjective: The patient was seen this morning for followup. She was lying in bed. As soon as I wal ked into her room, she started complaining of her ongoing back pain problem. Objective: Vital Signs: Reviewed. Temperature this morning was 100.7, pulse 109, respiratory rate 20, blood pressure 126/78. HEENT: Unremarkable. Lungs: Clear to auscultation, except minimum rales in left lung, overall much better today than yest erday. Heart: Sounds normal. Abdomen: Soft. Bowel sounds normal. No guarding, rigidity, tenderness, or distention. Extremities: No leg edema. Laboratory Data: Sodium 134, potassium 3.2, chloride 101, bicarb 25, BUN 8, creatinine 0.50, and glu cose 128. White count 21.5, hemoglobin 9.9, and platelets 329. Impression: 1.Pneumonia. 2.Anemia. 3.Hypokalemia. 4.Hypertension. 5.Chronic abdominal pain. 6.Chronic nausea. 7.Chronic constipation. 8.Chronic narcotic drug use. 9.Chronic back pain. Plan: This morning when I saw the patient, I explained to her about reasons for abdominal ultrasound and HIDA scan that was ordered for her for part of further workup for her chronic abdominal pain and nausea problem. After I explained it to her about the reason for the test to rule out underlying ga llbladder etiology, she refused to have the test done and I informed nursing staff that she will cons ider to do it tomorrow, but she will not do it today. Only request she has every time I see is latesha ventura for her pain medication, which has already ordered. Her morphine is ordered like the way she nayeli harmon takes at home 15 mg twice a day; oxycodone, she takes 10 mg every 6 hours as needed at home and o bviously she takes it 4 times a day. I have reduced the dose to 2 times a day ever since I have orde red this medication and her gabapentin dose remains unchanged. We will continue this medications per order and I have changed antibiotics. Discontinue Zosyn and start her on Levaquin and vancomycin co nsidering her persistently elevated white count. We will repeat blood work tomorrow. I will see her tomorrow for followup. She was complaining of constipation and milk of magnesia was ordered x1 dose today. MCKENZIE/MODL Voice ID: [id number] Report ID: [id number]
[2018-11-01] MEDS: ONDANSETRON 4 MG/2 ML VIAL IV PRN ×5 (02:42→23:46)
[2018-11-01 05:22] LABS: Absolute Lymphocytes (CBC) 0.9 K/uL (0.7-4.9); Absolute Monocytes 1.1 K/uL (0.1-1.3); Absolute Neutrophil 12.9 K/uL (1.8-8.0); Basophils % 0.1 % (0-1.3); Eosinophils % 0.4 % (0-4.4); Hematocrit 28.5 % (36.0-45.0); Lymphocytes % 5.7 % (15.3-44.8); MCH 30.7 pg (27.0-35.0); MPV 7.4 fL (7.6-11.3); Monocytes % 7.2 % (3.3-12.3); RBC Red Blood Cell Count 3.17 M/uL (3.86-4.86)
[2018-11-01 05:27] LABS: BUN Blood Urea Nitrogen 6 mg/dL (7-18); Bicarbonate 26 mmol/L (21-32); Glucose Level 111 mg/dL (74-106); Sodium Level 136 mmol/L (136-145)
[2018-11-01] MEDS: ACETAMINOPHEN 500 MG TAB PO PRN ×3 (05:28→22:10)
[2018-11-01] MEDS ORDERED: POTASSIUM CL SA 10 MEQ TAB PO ONE ×2 (05:46→19:25)
[2018-11-01] MEDS: MORPHINE *EXTENDED RELEASE* 15 MG TAB PO SCH ×2 (08:36→20:04)
[2018-11-01] MEDS: GABAPENTIN 300 MG CAP PO SCH ×3 (08:36→20:03)
[2018-11-01] MEDS: TIOTROPIUM 5 SPRAYS/INHALER IH SCH (08:40)
[2018-11-01] MEDS: DULERA 200/5 (MOMETASONE/FORMOTEROL) INHALER IH SCH ×2 (08:40→20:02)
[2018-11-01] MEDS: VANCOMYCIN/NS 1 gm 1 GM/250 ML BAG IV SCH ×2 (08:41→20:05)
[2018-11-01] MEDS: ASPIRIN EC 81 MG TAB PO SCH (08:41)
[2018-11-01] MEDS: ENSURE HIGH PROTEIN 237 ML CAN PO SCH ×3 (08:41→20:04)
[2018-11-01] MEDS: Levofloxacin500mg IV 500 MG/100 ML BAG IV SCH (08:41)
[2018-11-01] MEDS: NICOTINE 14 MG/PAT TD SCH (08:41)
[2018-11-01] MEDS: FLUOXETINE 20 MG CAP PO SCH (08:41)
[2018-11-01] MEDS: LIDOCAINE 5% PATCH TD SCH (08:42)
--- NOTE | 2018-11-01 10:27 | RAD REPORT ---
EXAM DESCRIPTION: Jesus Pa And Lat (2 Views)11/01/2018 10:18 am CLINICAL HISTORY: Cough COMPARISON: October 30 FINDINGS: Mild left basilar opacity unchanged. Worsening in right alveolar basilar opacities. Mild worsening in diffuse right and no significant samira nge in left interstitial lung opacities Heart is normal size IMPRESSION: Worsening in right basilar opacity and no change in a left basilar likely representing p neumonia. Bilateral interstitial lung opacities probably representing additional pneumonia. Superimposed pulmon deborah edema is another consideration
[2018-11-01] MEDS: OXYCODONE HCL 5 MG TAB PO PRN ×2 (11:20→23:46)
[2018-11-01] MEDS: TIZANIDINE 4 MG TABLET PO PRN (14:10)
[2018-11-01] MEDS: ENOXAPARIN 30 MG/0.3 ML SQ SCH (16:27)
[2018-11-01] MEDS: LEVALBUTEROL 1.25 MG/3 ML NEB NEB PRN (20:45)
[2018-11-01] MEDS: ZOLPIDEM TARTRATE 5 MG TABLET PO PRN (22:10)
--- NOTE | 2018-11-02 | PN ---
Date of Progress Note: 11/01/2018 Subjective: The patient was seen this morning for followup. Her was present with her at bedside. She was lying in bed, not in any distress. Continues to complain of back pain. Yesterday, she refused to have abdominal ultrasound and HIDA scan and she told me yesterday morning that she will agree to do this test today so both of those tests were ordered for today and this morning she refused to have those tests. She continues to have nausea. Has very poor appetite. Physical Therapy consult is in place, but she does not cooperate with physical therapy and has not ambulated. The patient had a Messer catheter in place yesterday and nurse was advised to remove Messer catheter and the patient refused to get the catheter removed. So, this morning, I informed her that her catheter has to be taken out and the nurse was informed to take out the catheter. The risk of infection explained to her. The patient does not eat, hardly anything. She refuses to drink Ensure. I had a long discussion with the patient's outside the patient's room before we walked into the room. I explained to the patient's that the patient is not cooperating in terms of physical therapy or further testing that is recommended for further evaluation of her chronic abdominal pain, nausea, etc. and I have advised him to see if there is something he can do to communicate with her. Also, we suggested for them to talk to social sciences chair to start planning for discharge planning. I have informed the patient that she needs to continue to follow up with her Pain Management physician upon discharge from the hospital and she was also told that I will not be writing any prescription for her pain medication upon discharge and she will need to see her Pain Management physician as soon as possible upon discharge so she can start planning her appointment accordingly. She normally gets prescription from her Pain Management physician for her chronic pain but she also got prescription from Orthopedic surgeon for oxycodone on 10/24/2018 and I explained to her that she needs to make sure that she tries to get prescription only from one physician which is her Pain Management doctor instead of getting narcotic prescription from multiple physicians. Failure to do so may sometime result in loss of Pain Management physician who may agree to continue to provide care for her. All these details were discussed with her. The patient's was also informed that the patient is not compliant with her followup appointment on outpatient basis. She stops coming to office and does not take medication as prescribed and he was informed that if the patient continues to be noncompliant, I may not be able to continue to provide care for her and he understands that. Objective: Vital Signs: Reviewed. HEENT: Examination unremarkable. Lungs: Clear to auscultation except very minimum rales noted in lung base. Not in any respiratory distress. Heart: Sounds normal. Abdomen: Soft. Bowel sounds normal. No guarding, rigidity, tenderness, distention. Extremities: No leg edema. Labs: CBC done yesterday and WBC is 14.9 compared to 21,000 yesterday. Impression: 1. Pneumonia. 2. Hypertension. 3. Chronic nausea. 4. Chronic constipation. 5. Chronic abdominal pain. 6. Chronic back pain. 7. Chronic narcotic drug use. Plan: We will continue current antibiotics. The patient to ambulate with physical therapy. Messer catheter to be removed by nursing staff per order. I will see her tomorrow for followup. Chest x-ray done today, results reviewed. The plan is to discharge her to go home once her pneumonia is well enough for her to go home on oral antibiotics and we will make that decision some time later part of this week or by this weekend. The patient is refusing her abdominal ultrasound and HIDA scan and I have advised her to continue to follow with Dr. Sharp on outpatient basis for her ongoing abdominal pain, nausea, and constipation problem. MCKENZIE/MODL Voice ID: [id number] Report ID: [id number] CRISTY
[2018-11-02] MEDS: ACETAMINOPHEN 500 MG TAB PO PRN ×2 (04:01→11:43)
[2018-11-02] MEDS: ONDANSETRON 4 MG/2 ML VIAL IV PRN ×5 (04:01→20:58)
[2018-11-02 04:50] LABS: Absolute Lymphocytes (CBC) 1.3 K/uL (0.7-4.9); Absolute Neutrophil 12.9 K/uL (1.8-8.0); Basophils % 0.2 % (0-1.3); Eosinophils % 0.5 % (0-4.4); Hematocrit 23.5 % (36.0-45.0); Lymphocytes % 8.8 % (15.3-44.8); MCH 31.2 pg (27.0-35.0); MCV 89.9 fL (80-100); MPV 7.3 fL (7.6-11.3); Monocytes % 6.3 % (3.3-12.3); RBC Red Blood Cell Count 2.61 M/uL (3.86-4.86)
[2018-11-02 05:22] LABS: BUN Blood Urea Nitrogen 3 mg/dL (7-18); Bicarbonate 24 mmol/L (21-32); Glucose Level 103 mg/dL (74-106); Magnesium 1.9 mg/dL (1.8-2.4); Potassium 3.1 mmol/L (3.5-5.1); Sodium Level 136 mmol/L (136-145)
[2018-11-02] MEDS: ENSURE HIGH PROTEIN 237 ML CAN PO SCH ×3 (09:00→20:58)
[2018-11-02] MEDS ORDERED: POTASSIUM CL SA 10 MEQ TAB PO ONE ×2 (09:00→19:00)
[2018-11-02] MEDS: MORPHINE *EXTENDED RELEASE* 15 MG TAB PO SCH ×2 (09:02→20:58)
[2018-11-02] MEDS: GABAPENTIN 300 MG CAP PO SCH ×3 (09:02→20:58)
[2018-11-02] MEDS: LIDOCAINE 5% PATCH TD SCH (09:03)
[2018-11-02] MEDS: DULERA 200/5 (MOMETASONE/FORMOTEROL) INHALER IH SCH ×2 (09:06→20:57)
[2018-11-02] MEDS: VANCOMYCIN/NS 1 gm 1 GM/250 ML BAG IV SCH ×2 (09:06→20:57)
[2018-11-02] MEDS: Levofloxacin500mg IV 500 MG/100 ML BAG IV SCH (09:06)
[2018-11-02] MEDS: TIOTROPIUM 5 SPRAYS/INHALER IH SCH (09:07)
[2018-11-02] MEDS: NICOTINE 14 MG/PAT TD SCH (09:11)
[2018-11-02] MEDS: ASPIRIN EC 81 MG TAB PO SCH (09:11)
[2018-11-02] MEDS: FLUOXETINE 20 MG CAP PO SCH (09:11)
[2018-11-02] MEDS: LEVALBUTEROL 1.25 MG/3 ML NEB NEB PRN (11:25)
[2018-11-02] MEDS: OXYCODONE HCL 5 MG TAB PO PRN (13:11)
[2018-11-02] MEDS ORDERED: OXYCODONE HCL 5 MG TAB PO PRN (13:14)
[2018-11-02] MEDS: TIZANIDINE 4 MG TABLET PO PRN (17:15)
[2018-11-02] MEDS: ENOXAPARIN 30 MG/0.3 ML SQ SCH (17:15)
[2018-11-02] MEDS: ZOLPIDEM TARTRATE 5 MG TABLET PO PRN (22:22)
--- NOTE | 2018-11-03 01:20 | PN ---
Date of Progress Note: 11/02/2018 Subjective: The patient was seen this morning for followup. She was lying in bed sleeping, easily a rousable, not in any distress. Continues to complain of ongoing back pain and was complaining that s he is not getting her pain medication as she wants and she told me that she would like to get her zachary n medication at separate time instead of all at 1 time, and on 10/31/2018, check the nursing staff, a nd she got her medication not at the same time. Morphine is twice a day morning and evening and in b etween she got her oxycodone. So she got this pain medication at separate time as I wanted and I als o told her that I will check on last 24 hours, see how she got, but also specified for the nursing st aff to not to give those medications, not to give oxycodone within 4 hours after giving morphine, so that way at least she has some scheduled doses and p.r.n. medication in between. She tells me that h er appetite is improving and she did some physical therapy, did walk little bit yesterday with Physic al Therapy yesterday according to what the patient tells me. She had a bowel movement yesterday. To day, she refused to participate with Physical Therapy. When Physical Therapy went first time she say s she is in pain and she will not do any therapy and then later on when the therapy went, after the p ain medication dose was given, she refused it at that time and just did not want to do any therapy. Continues to complain of nausea. No vomiting though. She does get out of bed to use the bedside com mode with standby assist as per my discussion with the nursing staff. Objective: Vital Signs: Reviewed. HEENT: Unremarkable. Lungs: Clear to auscultation. No rhonchi or rales. Heart: Sounds normal. Abdomen: Soft, bowel sounds normal. No guarding, rigidity, tenderness, or distention. Extremities: No leg edema. Laboratory Data: White count 15.3, hemoglobin 8.2, platelets 366. Sodium 136, potassium 3.1, chlori de 103, bicarb 24, BUN 3, creatinine 0.4, glucose 103, magnesium 1.9. Blood culture remains negative . Impression: 1.Pneumonia. 2.Anemia. 3.Hypertension. 4.Chronic nausea. 5.Chronic constipation. 6.Chronic abdominal pain. 7.Chronic narcotic drug use. 8.Chronic back pain. Plan: We will continue current pain medication per order. Continue current antibiotics. The patien t's WBC count is improving well. We will repeat chest x-ray tomorrow, repeat blood work tomorrow. T he patient is refusing to have ultrasound and HIDA scan done. So for her ongoing abdominal pain and nausea, she will have to continue to follow up with her workforce management consultant, Dr. Sharp on outpatient ba sis. Yesterday, I did inform her in presence of her that it is very important that if she wa nts to get better, she needs to eat all her meals and she needs to participate with physical therapy. Otherwise, she may end up going to long-term instead of going home from the hospital. We will c ontinue current DVT prophylaxis and I will see her tomorrow for followup. MCKENZIE/TANI Voice ID: [id number] Report ID: [id number]
[2018-11-03] MEDS: ACETAMINOPHEN 500 MG TAB PO PRN ×3 (03:27→23:52)
[2018-11-03] MEDS: ONDANSETRON 4 MG/2 ML VIAL IV PRN ×5 (03:27→21:39)
[2018-11-03] MEDS: TIZANIDINE 4 MG TABLET PO PRN ×3 (05:18→23:50)
[2018-11-03 06:15] LABS: Absolute Lymphocytes (CBC) 1.3 K/uL (0.7-4.9); Absolute Monocytes 0.6 K/uL (0.1-1.3); Absolute Neutrophil 7.6 K/uL (1.8-8.0); Basophils % 0.3 % (0-1.3); Eosinophils % 1.7 % (0-4.4); Hematocrit 31.5 % (36.0-45.0); Lymphocytes % 13.1 % (15.3-44.8); MCH 30.7 pg (27.0-35.0); MCV 91.1 fL (80-100); Monocytes % 6.2 % (3.3-12.3); RBC Red Blood Cell Count 3.45 M/uL (3.86-4.86)
[2018-11-03 06:39] LABS: ALT/SGPT 41 U/L (12-78); AST/SGOT 65 U/L (15-37); Albumin 1.7 g/dL (3.4-5.0); Alkaline Phosphatase 97 U/L (45-117); BUN Blood Urea Nitrogen 5 mg/dL (7-18); Bicarbonate 23 mmol/L (21-32); Bilirubin Total 0.3 mg/dL (0.2-1.0); Glucose Level 100 mg/dL (74-106); Magnesium 1.8 mg/dL (1.8-2.4); Potassium 3.6 mmol/L (3.5-5.1); Protein, Total 5.3 g/dL (6.4-8.2); Sodium Level 136 mmol/L (136-145)
[2018-11-03] MEDS ORDERED: KCL 20 MEQ/100 mL IVPB 20 MEQ/100 ML BAG IV SCH (07:00)
[2018-11-03] MEDS ORDERED: MAGNESIUM SULFATE 1 gm IVPB 1 GM/100 ML BAG IV ONE (08:00)
[2018-11-03] MEDS: MORPHINE *EXTENDED RELEASE* 15 MG TAB PO SCH ×3 (08:00→19:59)
[2018-11-03] MEDS: FLUOXETINE 20 MG CAP PO SCH (08:44)
[2018-11-03] MEDS: GABAPENTIN 300 MG CAP PO SCH ×3 (08:44→19:58)
[2018-11-03] MEDS: ASPIRIN EC 81 MG TAB PO SCH (08:44)
[2018-11-03] MEDS: NICOTINE 14 MG/PAT TD SCH (08:51)
[2018-11-03] MEDS: DULERA 200/5 (MOMETASONE/FORMOTEROL) INHALER IH SCH ×2 (08:51→19:58)
[2018-11-03] MEDS: ENSURE HIGH PROTEIN 237 ML CAN PO SCH ×3 (08:51→19:59)
[2018-11-03] MEDS: LIDOCAINE 5% PATCH TD SCH (08:52)
[2018-11-03] MEDS: TIOTROPIUM 5 SPRAYS/INHALER IH SCH (08:52)
[2018-11-03] MEDS: Levofloxacin500mg IV 500 MG/100 ML BAG IV SCH (10:09)
[2018-11-03] MEDS: VANCOMYCIN/NS 1 gm 1 GM/250 ML BAG IV SCH ×2 (11:00→19:59)
[2018-11-03] MEDS: OXYCODONE HCL 5 MG TAB PO SCH (14:06)
--- NOTE | 2018-11-03 14:49 | PN ---
Date of Progress Note: 11/03/2018 Subjective: The patient was seen this morning for followup. She was lying in bed. Her was present with her at bedside. Objective: Vital Signs: Reviewed. She remains afebrile. HEENT: Unremarkable. Lungs: Clear to auscultation except minimum rales noted in the lung base. Not in respiratory distre ss. Heart: Sounds normal. Abdomen: Soft. Bowel sounds normal. No guarding, rigidity, tenderness, or distention. Extremities: No leg edema. Laboratory Data: White count 9.6, hemoglobin 10.6, platelets 307. Sodium 136, potassium 3.6, chlori de 105, bicarb 23, BUN 5, creatinine 0.40, glucose 100, SGOT 65, SGPT 41, total bilirubin 0.3, magnes ium 1.8. Procalcitonin 0.09. Impression: 1.Pneumonia. 2.Probable chronic obstructive pulmonary disease. 3.Chronic nausea. 4.Anemia. 5.Chronic abdominal pain. 6.Chronic constipation. 7.Chronic back pain. 8.Chronic narcotic drug use. Plan: We will go ahead and continue current medication, which is antibiotics. We will continue curr ent pain medication, which is morphine sulfate twice a day, oxycodone twice a day, gabapentin 3 times a day, tizanidine 2 times a day. We will get a chest x-ray done today for followup on pneumonia. D epending on her x-ray, we will decide if we can possibly discharge her to go home tomorrow or not. T he patient did not ambulate yesterday with physical therapy. I did advise her to ambulate with theragustin pascual and try to eat all her meals in order for her to get better. Her only concern is her pain medicat ions. When I was talking to her, she was not clear exactly how she wanted her pain medications, but after I talked to her yesterday she wanted to make sure that she gets her pain medication t hat morphine and oxycodone not to be given at the same time, and I did confirm that with the nursing staff wrote order to make sure that she does not get those medications at the same time, and today sh yomaira was not quite clear on exactly what she wanted, but in any case, I informed her because at one poin t today she told me that she wanted morphine and oxycodone both at the same time and I informed her t hat now that is not the best thing to do, at this point is to continue her morphine every [address] is ordered and oxycodone instead of p.r.n. We can change it to every 12 hours on a schedule d basis, but it will be 6 hours apart from morphine dose, so that way she gets morphine or oxycodone every 6 hours, but not together and we will continue gabapentin and tizanidine the way it is currentl y ordered. The patient's talked to me outside the patient's room and he is going to communic ate with the patient's pain management physician to try to have him help her to reduce the use of zachary n medication with understanding that ultimate goal is to completely stop all narcotic pain medication use. We do not know whether she will be able to achieve that or not, but is going to try to control her day-to-day medication administration, so there is a suggestion, I told him that he may j ust keep only that particular days narcotic medication supply at home where the patient can excess th at but otherwise he will have to keep rest of the medications with him. So that way she is not going to be able to access and use more medication as we do know the fact that she took approximately 40 t ablets of oxycodone 10 mg, each tablet over period of 3 days and I strongly believe that is the reaso n why she ended-up in the hospital with low blood pressure and pneumonia. There is a good possibilit y during that time when her blood pressure was low and her mental status was altered, she could have aspirated also because all this trouble with pneumonia. In any case, I did have all this discussion with the patient's and I will see her tomorrow for followup. MCKENZIE/MODL Voice ID: [id number] Report ID: [id number]
--- NOTE | 2018-11-03 15:14 | RAD REPORT ---
EXAM DESCRIPTION: RAD - Chest Pa And Lat (2 Views) - 11/03/2018 3:02 pm CLINICAL HISTORY: Pneumonia COMPARISON: November 01, October 30, May 29 TECHNIQUE: PA and lateral views of the chest were obtained. FINDINGS: The lungs are extensively fibrotic as a baseline. Interstitial and airspace opacification seen in the right base and right apex have partially resolved. Left base opacification has increased . There is an overall increase in interstitial pattern compared to the baseline June 04 study. Heart size is normal and central vasculature is within normal limits. No pneumothorax. Small pleural flui d collections noted. No acute bony finding noted. No aortic abnormality. IMPRESSION: Partial resolution of right upper lobe and right lung base pneumonia findings. Left base pneumonia findings are still present. Patient has an overall diffuse interstitial edema pattern and small pleural effusions.
[2018-11-03] MEDS ORDERED: FUROSEMIDE 20 MG/ 2ML VIAL IV ONE (15:52)
[2018-11-03] MEDS ORDERED: POTASSIUM CL SA 10 MEQ TAB PO ONE (15:52)
[2018-11-03] MEDS: ENOXAPARIN 30 MG/0.3 ML SQ SCH (17:09)
[2018-11-03] MEDS: ZOLPIDEM TARTRATE 5 MG TABLET PO PRN (20:19)
[2018-11-04] MEDS: OXYCODONE HCL 5 MG TAB PO SCH ×2 (02:36→14:30)
[2018-11-04] MEDS: ONDANSETRON 4 MG/2 ML VIAL IV PRN ×4 (05:08→21:07)
[2018-11-04 06:45] LABS: BUN Blood Urea Nitrogen 3 mg/dL (7-18); Bicarbonate 22 mmol/L (21-32); Glucose Level 105 mg/dL (74-106); Magnesium 1.9 mg/dL (1.8-2.4); Potassium 3.9 mmol/L (3.5-5.1); Sodium Level 132 mmol/L (136-145)
[2018-11-04] MEDS: GABAPENTIN 300 MG CAP PO SCH ×3 (08:35→20:03)
[2018-11-04] MEDS: ASPIRIN EC 81 MG TAB PO SCH (08:35)
[2018-11-04] MEDS: FLUOXETINE 20 MG CAP PO SCH (08:35)
[2018-11-04] MEDS: MORPHINE *EXTENDED RELEASE* 15 MG TAB PO SCH ×2 (08:36→20:03)
[2018-11-04] MEDS: NICOTINE 14 MG/PAT TD SCH (08:36)
[2018-11-04] MEDS: LIDOCAINE 5% PATCH TD SCH (08:37)
[2018-11-04] MEDS: DULERA 200/5 (MOMETASONE/FORMOTEROL) INHALER IH SCH ×2 (08:39→20:04)
[2018-11-04] MEDS: TIOTROPIUM 5 SPRAYS/INHALER IH SCH (08:39)
[2018-11-04] MEDS: ENSURE HIGH PROTEIN 237 ML CAN PO SCH ×3 (08:41→20:03)
[2018-11-04] MEDS: Levofloxacin500mg IV 500 MG/100 ML BAG IV SCH (08:41)
[2018-11-04] MEDS ORDERED: POTASSIUM CL SA 10 MEQ TAB PO ONE ×2 (09:00→12:11)
[2018-11-04] MEDS ORDERED: FUROSEMIDE 20 MG/ 2ML VIAL IV ONE (12:11)
[2018-11-04] MEDS: ACETAMINOPHEN 500 MG TAB PO PRN (12:58)
[2018-11-04] MEDS: VANCOMYCIN/NS 1 gm 1 GM/250 ML BAG IV SCH ×2 (13:01→21:07)
[2018-11-04] MEDS: TIZANIDINE 4 MG TABLET PO PRN ×2 (17:30→21:07)
[2018-11-04] MEDS: ENOXAPARIN 30 MG/0.3 ML SQ SCH (17:46)
--- NOTE | 2018-11-04 17:54 | PN ---
Date of Progress Note: 11/04/2018 Subjective: The patient was seen this morning for followup. She is feeling much better, looking a lot better today. Her was present with her at bedside. Objective: Vital Signs: Reviewed. Remains afebrile. HEENT: Unremarkable. Lungs: Clear to auscultation. Bilateral good equal air entry. No rhonchi. No rales. Not in any respiratory distress. Heart: Sounds normal. Abdomen: Soft. Bowel sounds normal. No guarding, rigidity, tenderness, or distention. Extremities: No leg edema. Laboratory Data: Sodium 132, potassium 3.9, chloride 102, bicarb 22, BUN 3, creatinine 0.50. Glucose 105. Magnesium 1.9. Impression: 1. Pneumonia. 2. Chronic obstructive pulmonary disease. 3. Anemia. 4. Hypertension. 5. Chronic nausea. 6. Chronic constipation. 7. Chronic narcotic medication use. Plan: We will go ahead and continue current medications. The patient is currently on antibiotics, which will be continued. Her oxygen will be continued. She requires home oxygen as we try to check her room air oxygen saturation today and it was 60-65% range with 2 L oxygen and it came up to 87%. So, I have advised her to use 3 L nasal cannula oxygen and the patient should go home with continuous home oxygen and diagnosis for home oxygen use is COPD. Our plan is to discharge her to go home once oxygen arrangements gets completed and I did go over all her discharge medication and instruction with the patient' s and the patient this morning. MCKENZIE/TANI Voice ID: [id number] Report ID: [id number] CRISTY
[2018-11-04] MEDS: ZOLPIDEM TARTRATE 5 MG TABLET PO PRN (20:03)
[2018-11-05] MEDS: OXYCODONE HCL 5 MG TAB PO SCH (01:09)
[2018-11-05] MEDS: ONDANSETRON 4 MG/2 ML VIAL IV PRN ×3 (01:09→09:28)
[2018-11-05] MEDS: TIZANIDINE 4 MG TABLET PO PRN ×2 (01:09→09:29)
[2018-11-05] MEDS: ACETAMINOPHEN 500 MG TAB PO PRN ×2 (05:17→12:13)
[2018-11-05 05:57] LABS: BUN Blood Urea Nitrogen 9 mg/dL (7-18); Bicarbonate 22 mmol/L (21-32); Glucose Level 93 mg/dL (74-106); Potassium 4.3 mmol/L (3.5-5.1); Sodium Level 133 mmol/L (136-145)
[2018-11-05] MEDS: TIOTROPIUM 5 SPRAYS/INHALER IH SCH (08:04)
[2018-11-05] MEDS: DULERA 200/5 (MOMETASONE/FORMOTEROL) INHALER IH SCH (08:04)
[2018-11-05] MEDS: FLUOXETINE 20 MG CAP PO SCH (08:05)
[2018-11-05] MEDS: MORPHINE *EXTENDED RELEASE* 15 MG TAB PO SCH (08:05)
[2018-11-05] MEDS: NICOTINE 14 MG/PAT TD SCH (08:05)
[2018-11-05] MEDS: ASPIRIN EC 81 MG TAB PO SCH (08:06)
[2018-11-05] MEDS: LIDOCAINE 5% PATCH TD SCH (08:06)
[2018-11-05] MEDS: GABAPENTIN 300 MG CAP PO SCH (08:06)
[2018-11-05] MEDS: Levofloxacin500mg IV 500 MG/100 ML BAG IV SCH (08:07)
[2018-11-05] MEDS: ENSURE HIGH PROTEIN 237 ML CAN PO SCH (08:08)
[2018-11-05] MEDS: VANCOMYCIN/NS 1 gm 1 GM/250 ML BAG IV SCH (09:42)
[2018-11-05 10:29] VITALS: O2SAT 98
[2018-11-05 12:28] VITALS: BP 117/62; TEMP 97.2
--- NOTE | 2018-11-06 05:44 | DS ---
Date of Discharge: 11/05/2018 Disposition: Discharged to go home. Physical Examination: HEENT: Unremarkable. Lungs: Clear to auscultation. No rhonchi. No rales. Heart: Sounds normal. Abdomen: Soft, bowel sounds normal. No guarding, rigidity, tenderness, or distention. Extremities: No leg edema. Hospital Course: A 53-year-old female patient who was admitted to the hospital after she presented t o emergency room. She was brought in with generalized weakness, confusion, and falling down at home. Please see dictated H and P for more information. The patient's called 911 with this elizabeth rn, and after she was evaluated, she was admitted to the hospital to intensive care unit. Please see dictated H and P for more details. The patient has chronic back pain and she sees pain management p perla, Dr. Landrum, and takes pain medication morphine and oxycodone. She also takes tizanidine and gabapentin per this pain management physician. She has chronic constipation and chronic nausea prob perri. When she came into emergency room, her initial systolic blood pressure was 68. She was given a bout 3 L of IV fluid in the emergency room, and when I saw her, her systolic blood pressure was aroun d 98. The patient was awake, alert, oriented, not in any distress at all. She did not appear septic at all. I was concerned about her confusion, weakness, and low blood pressure due to excessive amou nt of narcotic pain medication use, and upon further questioning, we did determine that she actually used approximately 40 tablets of her oxycodone within period of 3 days on top of her usual doses of h er narcotic pain medications. The patient's did go home and did pill count on all her medica tions and confirmed this information as we were concerned about that all of her problems were due to excessive narcotic pain medication use. I had a long discussion with the patient in the emergency ro om as well as throughout this hospitalization about importance of her, #1, not to take more medicatio n than prescribed, and second thing what she needs to do is work with her pain management physician t o slowly reduce the use of pain medication over period of time if possible. As a first step, I did r educe her oxycodone dose from 10 mg 4 times a day to 10 mg 2 times a day, and tizanidine from 3 times a day to 2 times a day during this hospitalization. Her morphine and gabapentin dose was continued as she was taking at home. Her blood pressure normalized in ICU. She required some vasopressor medi cation, but subsequently her blood pressure was stable and we were able to transfer her out of ICU to regular room. There was concern about pneumonia and she was started on empiric antibiotics which we re continued throughout this hospitalization, but I did change her antibiotics on 10/31/2018 because her white count was not coming down, and at that time, we started her on Levaquin and vancomycin. Th e patient continued to improve on this antibiotic. Her last white count on 11/03/2018 was 9.6, hemog lobin 10.6, platelets 307. Her highest white count was 22.9 on 10/29/2018. Her procalcitonin when s he came in was 7.38. Her last procalcitonin on 11/03/2018 was 0.09. We monitored her electrolytes a nd replaced electrolytes per protocol. Lowest potassium level was 2.7. Last potassium level today w as 4.3. Her cultures remained negative. Echocardiogram showed normal ejection fraction. As a part of further workup for her chronic nausea and abdominal pain complaint, I ordered abdominal ultrasound and HIDA scan, and the patient refused to get this testing done in the hospital. I had a long discu ssion with the patient's and the patient about importance of the patient to cut back on use o f narcotic pain medication, and the patient's has expressed that he will control her narcotic pain medication, so that way we can reduce chances of any overuse of such medication. For a while, the patient was not cooperative with her physical therapy also, but later on she started complying an d started ambulating with physical therapy. We were planning to discharge her to go home yesterday, but her room air oxygen saturation was very low requiring the patient to have home oxygen, so we did make arrangements for patient to have home oxygen. Yesterday, room air oxygen saturation was between 60 to 65%. Final Diagnoses: 1.Pneumonia. 2.Chronic obstructive pulmonary disease. 3.Hypotension secondary to narcotic drug use. 4.Altered mental status secondary to above. 5.Chronic back pain. 6.Chronic nausea. 7.Chronic constipation. 8.Gastroesophageal reflux disease. 9.Mixed hyperlipidemia. 10.Hypertension. Discharge Medication And Instruction: 1.Take home medication as prescribed. 2.Levaquin 500 mg daily for 1 week. 3.Take Spiriva inhaler 1 puff daily. 4.Continue Symbicort inhaler 2 puffs twice a day that she has at home and rinse mouth with water aft er use. The patient was advised to call office for refill on Symbicort inhaler. 5.Check blood pressure 1-2 times a day and take amlodipine 5 mg dose for systolic blood pressure hig her than 140. Bring all medication bottles and blood pressure readings to office at time of followup visit. 6.Follow up with pain management physician, Dr. Landrum, at this point. 7.Follow up with my office in 1 week. 8.Continue to follow with Dr. Sharp/Dr. Headley and your psychiatrist as per your scheduled appointm ent. 9.Do not take enalapril, olmesartan. 10.Change oxycodone dose to 10 mg 2 times a day. 11.Do not take propranolol. 12.Reduce dose of tizanidine to 2 times a day. 13.Do not take pantoprazole. MCKENZIE/MODL Voice ID: [id number] Report ID: [id number]
== END 2018-11-05 13:50 | disposition home or self-care (01) | DRG 917 ==
LOC: ER 09:58 → ERHOLD 10:51 → 3RD-ICU 16:33 → 4TH 10-30 10:57
PROVIDERS: ADMIT Internal Medicine; ATTEND Internal Medicine
DX: T40.2X1A Poisoning by other opioids, accidental (unintentional), initial encounter (principal); J18.9 Pneumonia, unspecified organism; I95.2 Hypotension due to drugs; Y92.019 Unspecified place in single-family (private) house as the place of occurrence of the external cause; R41.82 Altered mental status, unspecified; J44.9 Chronic obstructive pulmonary disease, unspecified; M54.9 Dorsalgia, unspecified; G89.29 Other chronic pain; R11.0 Nausea; K59.09 Other constipation; K21.9 Gastro-esophageal reflux disease without esophagitis; E78.2 Mixed hyperlipidemia; I10 Essential (primary) hypertension; F17.210 Nicotine dependence, cigarettes, uncomplicated; R63.0 Anorexia; R63.4 Abnormal weight loss; I95.0 Idiopathic hypotension; G47.00 Insomnia, unspecified; E87.6 Hypokalemia; D64.9 Anemia, unspecified
CPT/HCPCS: 36415; 70450; 71045; 71046; 80048; 80053; 80076; 80202; 80307; 80320; 80329; 81003; 81015; 83605; 83690; 83735; 83880; 84100; 84132; 84145; 84443; 84484; 85025; 85610; 85730; 87040; 87077; 87086; 87088; 87186; 93005; 93306; 94640; 96360; 96361; 96365; 96367; 96375; 97161; 99284; 99285; G0008; J0456; J1650; J1720; J1940; J2405; J2543; J3370; J3411; J3475; J7030; J7606; Q2035

== ENCOUNTER 2019-02-10 15:26 | Emergency (ER) | payer BC ==
--- OUTSIDE RECORDS SUMMARY | 2019-02-10 15:28 | XMS REPORT | Clinical Summary ---
:1965 Author Organization [facility] Address [address] [place] [address] Care Team Providers Name Role Phone Provider, Unknown Primary Care Provider Unavailable Allergies Active Allergy Reactions Severity Noted Date Comments Betadine Surgi-Prep Hives, Rash Low 03/31/2016 Patient reports blistering and rash Patient reports blistering and rash Dye 01/04/2018 Radiology DYE Contrast Medications Medication Sig Dispensed Refills Start Date End Date Status zolpidem (AMBIEN) 5 MG Take 5 mg by 0 Active tablet mouth nightly as needed for sleep. gabapentin (NEURONTIN) Take 600 mg by 0 Active 600 mg tablet mouth 3 (three) times a day. morPHINE (MSIR) 15 MG Take 15 mg by 0 Active tablet mouth every 12 (twelve) hours as needed for severe pain. oxyCODone (ROXICODONE) Take 10 mg by 0 Active 10 MG tablet mouth every 6 (six) hours as needed for moderate pain. tiZANidine (ZANAFLEX) 4 Take 4 mg by 0 Active MG tablet mouth every 8 (eight) hours as needed for muscle spasms. ondansetron ODT Take 4 mg by 0 Active (ZOFRAN-ODT) 4 MG mouth every 8 disintegrating tablet (eight) hours as needed for nausea or vomiting. atorvastatin (LIPITOR) Take 1 tablet by 2 01/11/2018 Active 20 MG tablet mouth daily. pantoprazole (PROTONIX) Take 1 tablet by 0 01/05/2018 Active 40 MG EC tablet mouth daily. Active Problems Problem Noted Date Gastroesophageal reflux disease 01/20/2018 Cavitary lesion of lung 01/04/2018 Hemoptysis 01/04/2018 History of tobacco use 01/04/2018 Chronic obstructive pulmonary disease 01/04/2018 Septic shock 09/25/2017 Acute respiratory failure 09/25/2017 Hyponatremia 09/25/2017 Elevated troponin 09/25/2017 Encounters Date Type Specialty Care Team Description 08/06/2018 Intake Access N/A after 02/09/2018 Immunizations Name Dates Previously Given Next Due [...] travel history available. Last Filed Vital Signs Not on file Plan of Treatment Health Maintenance Due Date Last Done Comments CERVICAL CANCER SCREENING 1985 BREAST CANCER SCREENING 2014 SHINGLES VACCINES (#1) 2014 INFLUENZA VACCINE 06/28/2018 10/06/2017 COLON CANCER SCREENING 10/06/2027 10/06/2017, 09/26/2017 Implants Implanted Type Area Reference Library Assistant Device Shelf Model / Serial Identifier Expiration Date / Lot Stimulator Stimulator MEDTRONIC / / Results Not on fileafter 02/09/2018 Insurance Payer Benefit Plan / Group Subscriber ID Type Phone Address BCBS BCBS CHOICE PPO/FEDERAL EMPL PPO xxxxxxxxxxxx PPO Advance Directives Patient has advance care planning documents on file. For more information, please contact:[place] [address]
[2019-02-10 17:51] LABS: Absolute Lymphocytes (CBC) 1.7 K/uL (0.7-4.9); Absolute Monocytes 0.9 K/uL (0.1-1.3); Absolute Neutrophil 9.6 K/uL (1.8-8.0); Basophils % 0.6 % (0-1.3); Eosinophils % 2.5 % (0-4.4); Hematocrit 36.6 % (36.0-45.0); Lymphocytes % 13.6 % (15.3-44.8); Monocytes % 6.9 % (3.3-12.3); RBC Red Blood Cell Count 4.48 M/uL (3.86-4.86)
--- NOTE | 2019-02-10 17:53 | RAD REPORT ---
EXAM DESCRIPTION: CT - Head Brain Wo Cont - 02/10/2019 5:42 pm CLINICAL HISTORY: Dizziness;Numbness Headache, drowsiness, CVA COMPARISON: Head Brain Wo Cont dated 10/28/2018; Head Brain Wo Cont dated 10/26/2018 TECHNIQUE: All CT scans are performed using dose optimization technique as appropriate and may inclu de automated exposure control or mA/KV adjustment according to patient size. FINDINGS: No intracranial hemorrhage, hydrocephalus or extra-axial fluid collection.No areas of brai n edema or evidence of midline shift. The paranasal sinuses and mastoids are essentially clear. The calvarium is intact. IMPRESSION: No acute intracranial abnormality.
[2019-02-10 18:08] LABS: BUN Blood Urea Nitrogen 12 mg/dL (7-18); Bicarbonate 24 mmol/L (21-32); Glucose Level 110 mg/dL (74-106); Magnesium 1.9 mg/dL (1.8-2.4); Potassium 3.8 mmol/L (3.5-5.1); Sodium Level 135 mmol/L (136-145); Troponin (Emerg Dept Use Only) < 0.02 ng/mL (0.0-0.045)
[2019-02-10] MEDS ORDERED: NA CHLORIDE 0.9% 1,000 ML ONE (18:09)
[2019-02-10] MEDS ORDERED: ONDANSETRON 4 MG/2 ML VIAL ONE (18:09)
--- NOTE | 2019-02-10 18:59 | EDPHYS ---
Physician Documentation [facility] Name: Pratibha Jennings Age: 53 yrs Sex: Female : 1965 Arrival Date: 02/10/2019 Time: 15:28 Bed 25 Private MD: Joseph Rouse T ED Physician Rigoberto Carmichael HPI: 02/10 17:35 This 53 yrs old Female presents to ER via Wheelchair with complaints of Chest rn Pain, palpitations. 17:35 The patient or guardian reports chest pain that is located primarily in the chest rn diffusely. 17:36 Onset: 3 day(s) ago. The pain does not radiate. Associated signs and symptoms: rn Pertinent positives: palpitations, Pertinent negatives: abdominal pain, cough, diaphoresis, shortness of breath, syncope, vomiting. The chest pain is described as aching. 17:40 Duration: The patient or guardian reports multiple episodes. Modifying factors: The rn symptoms are alleviated by nothing. the symptoms are aggravated by nothing. The patient has experienced similar episodes in the past. Reports a few days of dizziness, palpitations, chest pain, nausea, generalized weakness. No fever/cough/sob/abd pain/vomiting/diarrhe. NO hx of heart problems. . 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 - Social history:: Smoking status: Patient uses tobacco products, smokes one-half pack cigarettes per day. - Ebola Screening: : No symptoms or risks identified at this time. - Family history:: not pertinent. - Hospitalizations: : No recent hospitalization is reported. ROS: 17:40 Constitutional: + weight loss Eyes: Negative for injury, pain, redness, and discharge, rn Neck: Negative for injury, pain, and swelling, Cardiovascular: Negative for edema, Respiratory: Negative for shortness of breath, cough, wheezing, and pleuritic chest pain, Abdomen/GI: Negative for abdominal pain, nausea, vomiting, diarrhea, and constipation, MS/Extremity: Negative for injury and deformity, Skin: Negative for injury, rash, and discoloration, Neuro: + generalized weakness Exam: 17:40 Constitutional: This is a well developed, well nourished patient who is awake, alert, nicu rn to room without difficulty, appears anxious Head/Face: Normocephalic, atraumatic. Eyes: Pupils equal round and reactive to light, extra-ocular motions intact. ENT: MMM Neck: Trachea midline, no thyromegaly or masses palpated, and no cervical lymphadenopathy. Supple, full range of motion without nuchal rigidity, or vertebral point tenderness. No Meningismus. Cardiovascular: Regular rate and rhythm, no murmur. No pulse deficits. Respiratory: Lungs have equal breath sounds bilaterally, clear to auscultation. No increased work of breathing, no retractions or nasal flaring. Abdomen/GI: soft, non-tender Skin: Warm, dry with normal turgor. Normal color with no rashes, no lesions, and no evidence of cellulitis. MS/ Extremity: Pulses equal, no cyanosis. Neurovascular intact. Full, normal range of motion. Equal circumference. Neuro: Awake and alert, GCS 15, oriented to person, place, time, and situation. Cranial nerves II-XII grossly intact. Motor strength 5/5 in all extremities. Sensory grossly intact. Cerebellar exam normal. Normal gait. Vital Signs: 15:41 BP 132 / 82; Pulse 87; Resp 18 S; Temp 98.5(TE); Pulse Ox 97% on R/A; Weight 45.36 kg aa5 (R); Height 5 ft. 4 in. (162.56 cm) (R); Pain 6/10; 18:07 BP 109 / 68; Pulse 75; Resp 18; Pulse Ox 98% on R/A; dm5 18:15 BP 119 / 64; Pulse 76; Resp 18; Pulse Ox 100% on R/A; dm5 15:41 Body Mass Index 17.17 (45.36 kg, 162.56 cm) aa5 MDM: 17:04 Patient medically screened. rn 18:57 Differential diagnosis: anxiety, chest wall pain, costochondritis, gastritis, rn gastroesophageal reflux disease (GERD), pleurisy, pneumothorax. Data reviewed: vital signs, nurses notes, lab test result(s), EKG, radiologic studies, plain films, and as a result, I will discharge patient. Counseling: I had a detailed discussion with the patient and/or guardian regarding: the historical points, exam findings, and any diagnostic results supporting the discharge/admit diagnosis, lab results, radiology results, the need for outpatient follow up, to return to the emergency department if symptoms worsen or persist or if there are any questions or concerns that arise at home. Special discussion: Based on the patient's history, exam, and Dx evaluation, there is no indication for emergent intervention or inpatient Tx. It is understood by the patient/guardian that if the Sx's persist or worsen they need to return immediately for re-evaluation. I discussed with the patient/guardian in detail that at this point there is no indication for admission to the hospital. It is understood, however, that if the symptoms persist or worsen the patient needs to return immediately for re-evaluation. ED course: No clear etiology found, will dc home, requests dc home, improved after fluids. Return precautions given and understood.. 02/10 17:19 Order name: CBC with Diff; Complete Time: 18:10 rn 02/10 17:19 Order name: Basic Metabolic Panel; Complete Time: 18:10 rn 02/10 17:19 Order name: CT Head Brain wo Cont; Complete Time: 17:56 rn 02/10 17:19 Order name: Magnesium; Complete Time: 18:10 rn 02/10 17:19 Order name: Troponin (emerg Dept Use Only); Complete Time: 18:10 rn 02/10 18:19 Order name: Urine Dipstick--Ancillary (enter results) 02/10 17:19 Order name: IV Start; Complete Time: 17:41 rn 02/10 17:19 Order name: EKG; Complete Time: 17:20 rn 02/10 17:19 Order name: EKG - Nurse/Tech; Complete Time: 18:08 rn 02/10 17:19 Order name: XRAY Chest (1 view) rn 02/10 18:11 Order name: Urine Dipstick-Ancillary (obtain specimen); Complete Time: 18:25 rn Administered Medications: 18:10 Drug: Zofran 4 mg Route: IVP; Site: left antecubital; dm5 18:11 Drug: NS 0.9% 1000 ml Route: IV; Rate: 1000 ml; Site: left antecubital; dm5 Disposition: 03/16/19 18:59 Discharged to Home. Impression: Chest pain, unspecified, Palpitations, Dehydration. - Condition is Stable. - Discharge Instructions: Nonspecific Chest Pain, Dehydration, Adult, Palpitations. - Medication Reconciliation Form, Thank You Letter, Antibiotic Education, Prescription Opioid Use form. - Follow up: Joseph Rouse MD; When: 2 - 3 days; Reason: Recheck today's complaints, Re-evaluation by your physician. - Problem is new. - Symptoms have improved. Signatures: Dispatcher [employer] Michelle Stewart RN RN dm5 Rigoberto Carmichael MD MD rn Calderon, Audri, RN RN aa5 Corrections: (The following items were deleted from the chart) 19:28 18:59 02/10/2019 18:59 Discharged to Home. Impression: Chest pain, unspecified; dm5 Palpitations; Dehydration. Condition is Stable. Forms are Medication Reconciliation Form, Thank You Letter, Antibiotic Education, Prescription Opioid Use. Follow up: Joseph Rouse; When: 2 - 3 days; Reason: Recheck today's complaints, Re-evaluation by your physician. Problem is new. Symptoms have improved. rn
--- NOTE | 2019-02-10 18:59 | ER ---
Nurse's Notes [facility] Name: Pratibha Jennings Age: 53 yrs Sex: Female : 1965 Arrival Date: 02/10/2019 Time: 15:28 Bed 25 Private MD: Joseph Rouse T Diagnosis: Chest pain, unspecified;Palpitations;Dehydration Presentation: 02/10 15:39 Presenting complaint: Patient states: chest pain that began this morning. Pt states "I aa5 haven't felt good for a couple of days". Pt c/o generalized weakness that began 2-3 days ago. Pt denies recent illness. Transition of care: patient was not received from another setting of care. Onset of symptoms was February 10, 2019. Risk Assessment: Do you want to hurt yourself or someone else? Patient reports no desire to harm self or others. Initial Sepsis Screen: Does the patient meet any 2 criteria? No. Patient's initial sepsis screen is negative. Does the patient have a suspected source of infection? No. Patient's initial sepsis screen is negative. Care prior to arrival: None. 15:39 Method Of Arrival: Wheelchair aa5 15:39 Acuity: NUSRAT 3 aa5 Triage Assessment: 15:49 General: Appears comfortable, Behavior is calm, cooperative. Pain: Complains of pain in aa5 chest. 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 - Social history:: Smoking status: Patient uses tobacco products, smokes one-half pack cigarettes per day. - Ebola Screening: : No symptoms or risks identified at this time. - Family history:: not pertinent. - Hospitalizations: : No recent hospitalization is reported. Screenin:15 Abuse screen: Denies threats or abuse. Denies injuries from another. Nutritional dm5 screening: No deficits noted. Tuberculosis screening: No symptoms or risk factors identified. Fall Risk None identified. Assessment: 17:15 General: Appears in no apparent distress. Behavior is calm, cooperative. Pain: dm5 Complains of pain in abdomen Pain does not radiate. Pain began 2-3 days ago. 17:15 Cardiovascular: Reports chest pain. Respiratory: Airway is patent Respiratory effort is dm5 even, unlabored, relaxed, Respiratory pattern is regular, symmetrical. Derm: Skin is pink, warm \\T\\ dry. Vital Signs: 15:41 BP 132 / 82; Pulse 87; Resp 18 S; Temp 98.5(TE); Pulse Ox 97% on R/A; Weight 45.36 kg aa5 (R); Height 5 ft. 4 in. (162.56 cm) (R); Pain 6/10; 18:07 BP 109 / 68; Pulse 75; Resp 18; Pulse Ox 98% on R/A; dm5 18:15 BP 119 / 64; Pulse 76; Resp 18; Pulse Ox 100% on R/A; dm5 15:41 Body Mass Index 17.17 (45.36 kg, 162.56 cm) aa5 ED Course: 15:28 Patient arrived in ED. mr 15:28 Joseph Rouse MD is Private Physician. mr 15:39 Arm band placed on. aa5 15:40 Triage completed. aa5 15:45 EKG completed in triage. Results shown to MD. aa5 16:00 Patient's name was called from ER lobby. No response. aa5 16:55 Patient's name was called from ER lobby. No response. aa5 17:04 Rigoberto Carmichael MD is Attending Physician. rn 17:15 Patient has correct armband on for positive identification. Pulse ox on. NIBP on. dm5 17:15 No provider procedures requiring assistance completed. Patient maintains SpO2 dm5 saturation greater than 95% on room air. 17:40 Initial lab(s) drawn, by me, sent to lab. Inserted saline lock: 20 gauge in left jp3 antecubital area, using aseptic technique. Blood collected. 17:40 Magnesium Sent. jp3 17:41 Basic Metabolic Panel Sent. jp3 17:41 CBC with Diff Sent. jp3 17:42 CT Head Brain wo Cont In Process Unspecified. EDMS 17:43 CT completed. Patient tolerated procedure well. Patient moved back from CT. mw3 17:43 Michelle Ruth, RN is Primary Nurse. dm5 18:00 X-ray completed. Portable x-ray completed in exam room. Patient tolerated procedure la2 well. 18:08 Magnesium Sent. jp3 18:08 Basic Metabolic Panel Sent. jp3 18:38 XRAY Chest (1 view) In Process Unspecified. EDMS 18:58 Joseph Rouse MD is Referral Physician. rn 19:28 IV discontinued, intact, bleeding controlled, No redness/swelling at site. Pressure dm5 dressing applied. Administered Medications: 18:10 Drug: Zofran 4 mg Route: IVP; Site: left antecubital; dm5 18:11 Drug: NS 0.9% 1000 ml Route: IV; Rate: 1000 ml; Site: left antecubital; dm5 Outcome: 18:59 Discharge ordered by MD. rn 19:28 Discharged to home dm5 19:28 Condition: good 19:28 Discharge instructions given to patient, Instructed on discharge instructions, follow up and referral plans. Demonstrated understanding of instructions, follow-up care. 19:28 Patient left the ED. dm5 Signatures: Dispatcher [employer] EDDC Michelle Ruth RN RN dm5 Pratibha Castillo Roman, MD MD rn Calderon, Audri, RN RN aa5 Marley Medina la2 Tomeka Valle mw3 Carlos Manning jp3
--- NOTE | 2019-02-10 19:08 | RAD REPORT ---
EXAM DESCRIPTION: RAD - Chest Single View - 02/10/2019 6:38 pm CLINICAL HISTORY: chest pain, palpitations Chest pain. COMPARISON: Chest Pa And Lat (2 Views) dated 11/03/2018; Chest Pa And Lat (2 Views) dated 11/01/2018; Chest Single View dated 10/30/2018; Chest Single View dated 10/29/2018 FINDINGS: Portable technique limits examination quality. The lungs are mildly emphysematous but grossly clear. The heart is normal in size. No displaced fract ures. IMPRESSION: No acute intrathoracic process suspected.
[2019-02-10 19:33] VITALS: TEMP 98.5
[2019-02-10 19:35] VITALS: BP 119/64; O2SAT 100
[2019-02-10 19:56] LABS: Urine Blood NEGATIVE (NEG); Urine Glucose NEGATIVE (NEG); Urine Protein 1+ (NEG); Urine Specific Gravity 1.015 (1.005-1.030)
--- NOTE | 2019-02-11 12:26 | EKG ---
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
== END 2019-02-10 19:28 | disposition home or self-care (01) ==
LOC: ER 15:26
DX: R07.9 Chest pain, unspecified (principal); R00.2 Palpitations; E86.0 Dehydration; F90.9 Attention-deficit hyperactivity disorder, unspecified type; E78.5 Hyperlipidemia, unspecified; I10 Essential (primary) hypertension; F17.210 Nicotine dependence, cigarettes, uncomplicated
CPT/HCPCS: 36415; 70450; 71045; 80048; 81003; 83735; 84484; 85025; 93005; 96374; 99285; J2405; J7030

== ENCOUNTER 2019-02-11 06:47 | Emergency (ER) | payer BC ==
--- OUTSIDE RECORDS SUMMARY | 2019-02-11 06:49 | XMS REPORT | Clinical Summary ---
:1965 Author Organization [facility] Address [address] [place] [address] Care Team Providers Name Role Phone Provider, [...] Team Description 08/06/2018 Intake Access N/A after 02/10/2018 Immunizations Name Dates Previously Given Next Due [...] 10/06/2027 10/06/2017, 09/26/2017 Implants Implanted Type Area Caustic Pump Operator Device Shelf Model / Serial Identifier Expiration Date / Lot Stimulator Stimulator MEDTRONIC / / Results Not on fileafter 02/10/2018 Insurance Payer Benefit Plan / Group Subscriber ID Type Phone Address BCBS BCBS CHOICE PPO/FEDERAL EMPL PPO xxxxxxxxxxxx PPO Advance Directives Patient has advance care planning documents on file. For more information, please contact:[place] [address]
[2019-02-11] MEDS ORDERED: HYDROCODONE/APAP 10/325 TAB ONE (07:37)
[2019-02-11] MEDS ORDERED: NA CHLORIDE 0.9% 1,000 ML ONE (07:37)
[2019-02-11] MEDS ORDERED: MECLIZINE HCL 12.5 MG TAB ONE (07:37)
[2019-02-11 07:46] LABS: Absolute Lymphocytes (CBC) 1.4 K/uL (0.7-4.9); Absolute Monocytes 0.4 K/uL (0.1-1.3); Absolute Neutrophil 7.9 K/uL (1.8-8.0); Basophils % 0.5 % (0-1.3); Eosinophils % 2.2 % (0-4.4); Hematocrit 36.3 % (36.0-45.0); MPV 7.7 fL (7.6-11.3); Monocytes % 3.9 % (3.3-12.3)
[2019-02-11 07:59] LABS: Potassium 3.5 mmol/L (3.5-5.1)
--- NOTE | 2019-02-11 08:41 | RAD REPORT ---
EXAM DESCRIPTION: RAD - Shoulder Left 2 View - 02/11/2019 8:10 am CLINICAL HISTORY: Left shoulder pain status post fall FINDINGS: Comminuted displaced fracture involves the mid to distal left clavicle. No dislocation see n
--- NOTE | 2019-02-11 08:43 | RAD REPORT ---
EXAM DESCRIPTION: Jesus Single View02/11/2019 8:10 am CLINICAL HISTORY: Chest pain COMPARISON: February 10 FINDINGS: Mild bilateral interstitial lung opacities unchanged The heart is upper limits normal size Comminuted displaced fracture involves the mid to distal left clavicle. No dislocation seen
--- NOTE | 2019-02-11 09:16 | ER ---
Nurse's Notes [facility] Name: Pratibha Jennings Age: 53 yrs Sex: Female : 1965 Arrival Date: 02/11/2019 Time: 06:47 Bed 14 Private MD: Joseph Rouse T Diagnosis: Dizziness and giddiness;Chronic pain syndrome;Unspecified adverse effect of drug or medicament;Fracture of clavicle Presentation: 02/11 07:05 Presenting complaint: Patient states: "I was dizzy and fell this morning and landed on aa5 my left shoulder". Pt c/o left clavicular pain. Pt denies head injury, denies LOC. Pt reports being seen here with dizziness and generalized weakness yesterday. Denies chest pain today. 07:05 Care prior to arrival: None. Mechanism of Injury: Fall from standing position. Trauma aa5 event details: Injury occurred in the [facility], Injury occurred: at home. Injury occurred: February 11, 2019. 07:05 Acuity: NUSRAT 3 aa5 07:05 Method Of Arrival: Wheelchair aa5 07:45 Transition of care: patient was not received from another setting of care. Onset of tw2 symptoms was February 11, 2019. Risk Assessment: Do you want to hurt yourself or someone else? Patient reports no desire to harm self or others. Initial Sepsis Screen: Does the patient meet any 2 criteria? No. Patient's initial sepsis screen is negative. Does the patient have a suspected source of infection? No. Patient's initial sepsis screen is negative. 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 tw2 Trauma Activation: Not Applicable Physician: ED Physician; Name: ; Notified At: ; Arrived At: Physician: General Surgeon; Name: ; Notified At: ; Arrived At: Physician: Radiology; Name: ; Notified At: ; Arrived At: Physician: Respiratory; Name: ; Notified At: ; Arrived At: Physician: Lab; Name: ; Notified At: ; Arrived At: Historical: - Allergies: 07:05 Iodine; topical; aa5 07:20 Iodine; topical; jb4 - Home Meds: 07:20 Fluoxetine Oral [Active]; Zofran Oral [Active]; Ambien 5 mg Oral tab 1 tab once daily jb4 [Active]; amlodipine oral [Active]; atorvastatin Oral [Active]; gabapentin 600 mg Oral tab 1 tab daily [Active]; Hydroxyzine Oral [Active]; lidocaine patch [Active]; morphine 15 mg Oral tab 1 tab every 4 hours [Active]; Neurontin 600 mg Oral tab 1 tab daily [Active]; oxycodone-acetaminophen 10-650 mg Oral tab 1 tab every 6 hours [Active]; Propranolol Oral [Active]; Protonix Oral [Active]; tizanidine 4 mg Oral cap 1 cap [Active]; - PMHx: 07:05 ADD/ADHD; Back pain; Chronic pain; Degenerative disc disease; Hyperlipidemia; aa5 Hypertension; 07:20 ADD/ADHD; Back pain; Chronic pain; Degenerative disc disease; Hyperlipidemia; jb4 Hypertension; - PSHx: 07:05 BACK SURGERY; nerve stimulator; aa5 07:20 BACK SURGERY; nerve stimulator; jb4 - Immunization history: Last tetanus immunization: unknown. - Ebola Screening: : No symptoms or risks identified at this time. - Social history:: Smoking status: . - Family history:: not pertinent. - Hospitalizations: : No recent hospitalization is reported. Screenin:46 Abuse screen: Denies threats or abuse. Nutritional screening: No deficits noted. tw2 Tuberculosis screening: No symptoms or risk factors identified. Fall Risk Secondary diagnosis (15 points) impaired mobility. Assessment: 07:44 General: Appears uncomfortable, slender, Behavior is cooperative, anxious, Smells of tw2 cigarette smoke. Pain: Complains of pain in left shoulder. Neuro: Level of Consciousness is awake, alert, obeys commands, Oriented to person, place, time, situation. Neuro: Reports dizziness. Cardiovascular: Heart tones S1 S2 Patient's skin is warm and dry. Respiratory: Airway is patent Respiratory effort is even, unlabored, Respiratory pattern is regular, symmetrical, Breath sounds are clear bilaterally. GI: No signs and/or symptoms were reported involving the gastrointestinal system. : No signs and/or symptoms were reported regarding the genitourinary system. EENT: No signs and/or symptoms were reported regarding the EENT system. Derm: No signs and/or symptoms reported regarding the dermatologic system. Musculoskeletal: Circulation, motion, and sensation intact. Range of motion: limited in left shoulder. 08:21 Reassessment: Patient appears in no apparent distress at this time. Patient and/or tw2 family updated on plan of care and expected duration. Pain level reassessed. Patient is alert, oriented x 3, equal unlabored respirations, skin warm/dry/pink. 09:21 Reassessment: Patient appears in no apparent distress at this time. Patient and/or tw2 family updated on plan of care and expected duration. Pain level reassessed. Patient is alert, oriented x 3, equal unlabored respirations, skin warm/dry/pink. Vital Signs: 07:07 BP 131 / 76; Pulse 80; Resp 16 S; Temp 97.9(TE); Pulse Ox 100% on R/A; aa5 08:21 BP 129 / 76; Pulse 79; Resp 17; Pulse Ox 100% on R/A; tw2 09:21 BP 128 / 80; Pulse 88; Resp 17; Pulse Ox 100% on R/A; tw2 ED Course: 06:47 Patient arrived in ED. ds1 06:48 Joseph Rouse MD is Private Physician. ds1 06:57 Rigoberto Carmichael MD is Attending Physician. rn 06:58 Bed in low position. Call light in reach. Side rails up X2. Adult w/ patient. Pulse ox tw2 on. NIBP on. Warm blanket given. Pillow given. 07:05 Arm band placed on Patient placed in an exam room, on a stretcher. aa5 07:16 Chucho Cooper, RN is Primary Nurse. jb4 07:16 Triage completed. aa5 07:21 Primary Nurse role handed off by Chucho Cooper, RN tw2 07:21 Mayra Dailey, RN is Primary Nurse. tw2 07:30 Inserted saline lock: 22 gauge in right antecubital area, using aseptic technique. tw2 Blood collected. 08:11 XRAY Chest (1 view) In Process Unspecified. EDMS 08:11 XRAY Shoulder LEFT 2 view In Process Unspecified. EDMS 09:22 No provider procedures requiring assistance completed. IV discontinued, intact, tw2 bleeding controlled, No redness/swelling at site. Pressure dressing applied. Administered Medications: 07:30 Drug: Meclizine 50 mg Route: PO; tw2 08:37 Follow up: Response: No adverse reaction tw2 07:30 Drug: [place] 10 mg-325 mg 1 tabs Route: PO; tw2 08:37 Follow up: Response: No adverse reaction tw2 07:39 Drug: NS 0.9% 1000 ml Route: IV; Rate: 1000 ml; Site: right antecubital; tw2 09:21 Follow up: IV Status: Order to discontinue infusion; IV Intake: 300ml tw Intake: 09:21 IV: 300ml; Total: 300ml. Outcome: 09:15 Discharge ordered by . rn 09:22 Discharged to home ambulatory, with significant other. tw 09:22 Condition: stable 09:22 Discharge instructions given to patient, significant other, Instructed on discharge instructions, follow up and referral plans. 09:22 Patient left the ED. Signatures: Dispatcher [employer] EDMS Tata Lim ds1 Rigoberto Carmichael MD MD rn Calderon, Audri RN RN aa5 Mayra Dailey RN RN tw2 Chucho Cooper, RN RN jb4
--- NOTE | 2019-02-11 09:16 | EDPHYS ---
Physician Documentation [facility] Name: Pratibha Jennings Age: 53 yrs Sex: Female : 1965 Arrival Date: 02/11/2019 Time: 06:47 Bed 14 Private MD: Joseph Rouse T ED Physician Rigoberto Carmichael HPI: 02/11 07:55 This 53 yrs old Female presents to ER via Wheelchair with complaints of Fall rn Injury. 07:55 Details of fall: The patient fell from an upright position. Onset: The symptoms/episode rn began/occurred just prior to arrival. Associated injuries: The patient sustained left collarbone/shoulder. Severity of symptoms: At their worst the symptoms were moderate, in the emergency department the symptoms are unchanged. The patient has not experienced similar symptoms in the past. The patient has been recently seen by a physician:. Reports continued dizziness when stood up, no syncope, fell, hit left shoulder/collarbone, no head injury, no chest pain. Seen by me yesterday with negative workup and improvement of symptoms with fluids, reports went home and laid in bed. Denies taking more medication than prescribed.. 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 tw2 Historical: - Allergies: 07:05 Iodine; topical; aa5 07:20 Iodine; topical; jb4 - Home Meds: 07:20 Fluoxetine Oral [Active]; Zofran Oral [Active]; Ambien 5 mg Oral tab 1 tab once daily jb4 [Active]; amlodipine oral [Active]; atorvastatin Oral [Active]; gabapentin 600 mg Oral tab 1 tab daily [Active]; Hydroxyzine Oral [Active]; lidocaine patch [Active]; morphine 15 mg Oral tab 1 tab every 4 hours [Active]; Neurontin 600 mg Oral tab 1 tab daily [Active]; oxycodone-acetaminophen 10-650 mg Oral tab 1 tab every 6 hours [Active]; Propranolol Oral [Active]; Protonix Oral [Active]; tizanidine 4 mg Oral cap 1 cap [Active]; - PMHx: 07:05 ADD/ADHD; Back pain; Chronic pain; Degenerative disc disease; Hyperlipidemia; aa5 Hypertension; 07:20 ADD/ADHD; Back pain; Chronic pain; Degenerative disc disease; Hyperlipidemia; jb4 Hypertension; - PSHx: 07:05 BACK SURGERY; nerve stimulator; aa5 07:20 BACK SURGERY; nerve stimulator; jb4 - Immunization history: Last tetanus immunization: unknown. - Ebola Screening: : No symptoms or risks identified at this time. - Social history:: Smoking status: . - Family history:: not pertinent. - Hospitalizations: : No recent hospitalization is reported. ROS: 07:55 Constitutional: Negative for fever, chills, and weight loss, Eyes: Negative for injury, rn pain, redness, and discharge, Neck: Negative for injury, pain, and swelling, Cardiovascular: Negative for chest pain, palpitations, and edema, Respiratory: Negative for shortness of breath, cough, wheezing, and pleuritic chest pain, Abdomen/GI: Negative for abdominal pain, nausea, vomiting, diarrhea, and constipation, MS/Extremity: + left shoulder pain and clavicle injury Skin: Negative for injury, rash, and discoloration, Neuro: Negative for headache, weakness, numbness, tingling, and seizure. Exam: 07:55 Constitutional: This is a well developed, well nourished patient who is awake, alert, rn appears anxious Head/Face: Normocephalic, atraumatic. Eyes: Pupils equal round and reactive to light, extra-ocular motions intact. Lids and lashes normal. Conjunctiva and sclera are non-icteric and not injected. Cornea within normal limits. Periorbital areas with no swelling, redness, or edema. ENT: Mucous membranes moist. Neck: Trachea midline, no thyromegaly or masses palpated, and no cervical lymphadenopathy. Supple, full range of motion without nuchal rigidity, or vertebral point tenderness. No Meningismus. Cardiovascular: Regular rate and rhythm. No pulse deficits. Respiratory: No increased work of breathing, no retractions or nasal flaring. Abdomen/GI: soft, non-tender Back: No spinal tenderness. No costovertebral tenderness. Full range of motion. MS/ Extremity: Pulses equal, no cyanosis. Neurovascular intact. Painful ROM left shoulder with tenderness over left clavicle, no ecchymosis/crepitus/deformity Neuro: Awake and alert, GCS 15, oriented to person, place, time, and situation. Cranial nerves II-XII grossly intact. Motor strength 5/5 in all extremities. Sensory grossly intact. Cerebellar exam normal. Vital Signs: 07:07 BP 131 / 76; Pulse 80; Resp 16 S; Temp 97.9(TE); Pulse Ox 100% on R/A; aa5 08:21 BP 129 / 76; Pulse 79; Resp 17; Pulse Ox 100% on R/A; tw2 09:21 BP 128 / 80; Pulse 88; Resp 17; Pulse Ox 100% on R/A; tw2 MDM: 06:57 Patient medically screened. rn 09:11 Differential diagnosis: contusion, fracture, medication overdose. Data reviewed: vital rn signs, nurses notes, lab test result(s), EKG, radiologic studies, and as a result, I will discharge patient. Counseling: I had a detailed discussion with the patient and/or guardian regarding: the historical points, exam findings, and any diagnostic results supporting the discharge/admit diagnosis, lab results, radiology results, the need for outpatient follow up, to return to the emergency department if symptoms worsen or persist or if there are any questions or concerns that arise at home. Response to treatment: the patient's symptoms have mildly improved after treatment, and as a result, I will discharge patient. Special discussion: I discussed with the patient/guardian in detail that at this point there is no indication for admission to the hospital. It is understood, however, that if the symptoms persist or worsen the patient needs to return immediately for re-evaluation. Based on the history and exam findings, there is no indication for further emergent testing or inpatient evaluation. 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 I discussed with the patient/guardian the need to see the primary care provider for further evaluation of the symptoms. ED course: Had long discussion with patient, has been told numerous times in past her symptoms likely due to medication side effects or overdosing, gets better while in hospital, then gets back into problems of dizziness, malaise, and irritability, when talking about pain management, patient got upset with family member and demanded to leave immediately, spoke with her the limitations of ER testing and urged to f/u with pcp for further bloodwork panels and addressing medication.. 02/11 07:21 Order name: CBC with Diff; Complete Time: 07:55 rn 02/11 07:21 Order name: Basic Metabolic Panel; Complete Time: 08:01 rn 02/11 07:21 Order name: XRAY Chest (1 view); Complete Time: 08:54 rn 02/11 07:21 Order name: XRAY Shoulder LEFT 2 view; Complete Time: 08:54 rn 02/11 07:21 Order name: IV Start; Complete Time: 07:37 rn 02/11 07:55 Order name: EKG; Complete Time: 07:55 rn 02/11 07:55 Order name: EKG - Nurse/Tech; Complete Time: 08:14 rn 02/11 08:32 Order name: Sling; Complete Time: 09:21 rn Administered Medications: 07:30 Drug: Meclizine 50 mg Route: PO; tw2 08:37 Follow up: Response: No adverse reaction 2 07:30 Drug: [place] 10 mg-325 mg 1 tabs Route: PO; tw2 08:37 Follow up: Response: No adverse reaction 2 07:39 Drug: NS 0.9% 1000 ml Route: IV; Rate: 1000 ml; Site: right antecubital; tw2 09:21 Follow up: IV Status: Order to discontinue infusion; IV Intake: 300ml tw Disposition: 02/11/19 09:15 Discharged to Home. Impression: Dizziness and giddiness, Chronic pain syndrome, Unspecified adverse effect of drug or medicament, Fracture of clavicle. - Condition is Stable. - Discharge Instructions: Clavicle Fracture, Dizziness, Pain Medicine Instructions. - Medication Reconciliation Form, Thank You Letter, Antibiotic Education, Prescription Opioid Use form. - Follow up: Private Physician; When: As needed; Reason: Recheck today's complaints, Re-evaluation by your physician. - Problem is an ongoing problem. - Symptoms have improved. Signatures: Dispatcher [employer] EDMS Rigoberto Carmichael MD MD rn Calderon, Audri RN RN aa5 Mayra Dailey RN RN tw2 Chucho Cooper, RN RN jb4 Corrections: (The following items were deleted from the chart) 08:00 07:55 Constitutional: This is a well developed, well nourished patient who is awake, rn alert, appears anxious Head/Face: Normocephalic, atraumatic. Eyes: Pupils equal round and reactive to light, extra-ocular motions intact. Lids and lashes normal. Conjunctiva and sclera are non-icteric and not injected. Cornea within normal limits. Periorbital areas with no swelling, redness, or edema. ENT: Mucous membranes moist. Cardiovascular: Regular rate and rhythm. No pulse deficits. Respiratory: No increased work of breathing, no retractions or nasal flaring. Abdomen/GI: soft, non-tender Back: No spinal tenderness. No costovertebral tenderness. Full range of motion. MS/ Extremity: Pulses equal, no cyanosis. Neurovascular intact. Painful ROM left shoulder with tenderness over left clavicle, no ecchymosis/crepitus/deformity Neuro: Awake and alert, GCS 15, oriented to person, place, time, and situation. Cranial nerves II-XII grossly intact. Motor strength 5/5 in all extremities. Sensory grossly intact. Cerebellar exam normal. rn 09:22 09:15 02/11/2019 09:15 Discharged to Home. Impression: Dizziness and giddiness; Chronic tw2 pain syndrome; Unspecified adverse effect of drug or medicament; Fracture of clavicle. Condition is Stable. Forms are Medication Reconciliation Form, Thank You Letter, Antibiotic Education, Prescription Opioid Use. Follow up: Private Physician; When: As needed; Reason: Recheck today's complaints, Re-evaluation by your physician. Problem is an ongoing problem. Symptoms have improved. rn
[2019-02-11 09:26] VITALS: TEMP 97.9; O2SAT 100
[2019-02-11 09:28] VITALS: BP 128/80
--- NOTE | 2019-02-12 12:25 | EKG ---
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
== END 2019-02-11 09:22 | disposition home or self-care (01) ==
LOC: ER 06:47
DX: S42.002A Fracture of unspecified part of left clavicle, initial encounter for closed fracture (principal); G89.4 Chronic pain syndrome; T50.905A Adverse effect of unspecified drugs, medicaments and biological substances, initial encounter; W19.XXXA Unspecified fall, initial encounter; Y93.9 Activity, unspecified; Y92.9 Unspecified place or not applicable; Z88.8 Allergy status to other drugs, medicaments and biological substances; E78.5 Hyperlipidemia, unspecified; I10 Essential (primary) hypertension; F90.9 Attention-deficit hyperactivity disorder, unspecified type
CPT/HCPCS: 36415; 71045; 80048; 85025; 93005; 96360; 96361; 99284; J7030

== ENCOUNTER 2019-05-26 14:15 | Emergency (ER) | payer BC ==
--- OUTSIDE RECORDS SUMMARY | 2019-05-26 14:18 | XMS REPORT | Clinical Summary ---
:1965 Author Organization [facility] Address [address] [place] [address] Care Team Providers Name Role Phone Provider, [...] Team Description 08/06/2018 Intake Access N/A after 05/25/2018 Immunizations Name Dates Previously Given Next Due [...] Health Maintenance Due Date Last Done Comments BREAST CANCER SCREENING 2014 COLONOSCOPY SCREENING 2014 SHINGLES VACCINES (#1) 2014 INFLUENZA VACCINE 06/28/2019 10/06/2017 Implants Implanted Type Area Armature And Rotor Winder Device Shelf Model / Serial Identifier Expiration Date / Lot Stimulator Stimulator MEDTRONIC / / Results Not on fileafter 05/25/2018 Advance Directives Patient has advance care planning documents on file. For more information, please contact:[place] [address]
--- OUTSIDE RECORDS SUMMARY | 2019-05-26 14:19 | XMS REPORT ---
:1965 [facility] [address] [place] [address] [address] [place] [address] Care Team Providers Name Role Phone Unavailable Unavailable Unavailable Payers Payer Name Policy Type Policy Number Effective Date Expiration Date Problems This patient has no known problems. Allergies, Adverse Reactions, Alerts Allergy Allergy Status Severity Reaction(s) Onset Inactive Treating Comments Name Type Date Date Clinician iodine DA Active [place] 2014-06 00:00:0 0 Medications This patient has no known medications. Results Test Description Test Time Test Comments Text Results Atomic Results Result Comments ACUTE HEPATITIS PANEL 2019-03-10 06:15:00 Test Item Value Reference Range Comments AB HEPATITIS A IGM (test Negative Negative code=HAVMAB) AG HEPATITIS B SURFACE (test Negative Negative code=HBSAG) AB HEPATITIS B CORE IGM (test Negative Negative code=HBCMAB) AB HEPATITIS C (test code=HCVAB) <0.1 0.0-0.9 INFCE Result Units: s/co ratio Negative: < 0.8 Indeterminate: 0.8 - 0.9 Positive: > 0.9 The CDC recommends that a positive HCV antibody result be followed up with a HCV Nucleic Acid Amplification test (356103).Performed At: [facility] [id number] Kyle L MD Ph:[phone] HIV 1 2 ANTIBODY [id number] 06:15:00 Test Item Value Reference Range Comments AB HIV 1 2 (test code=TIK11QR) NON REACTIVE SCREEN NONREACTIVE AG HIV1 P24 (test code=DEB8S12) NON REACTIVE P24 NONREACTIVE - CT ABD PELVIS [id number] 12:57:00 Name: GINA MARIEland : 1965 Age/S: 53 / F [address] Unit #: [id number] Loc: [place] [address] Phys: Bryan Orta MD Acct: [id number] Dis Date: Status : ADM IN PHONE #: [phone] Exam Date: 03/09/2019 1200 FAX #: Reason: abd pain EXAMS: CPT: [id number] CT ABD PELVIS W/CONT [id number] LOCATION: T18 EXAM: CT ABDOMEN AND PELVIS WITH CONTRAST INDICATION: abd pain, COMPARISON: None. TECHNIQUE: Multiple CT images of the abdomen and pelvis were obtained with reconstructions in the coronal sagittal planes. 100 ml of Isovue 300 was given intravenously. Up-to-date CT equipment and radiation dose reduction techniques were utilized. Automatic exposure control was utilized. FINDINGS: Lung bases are clear. Liver and spleen are normal in appearance. Adrenal glands and pancreas are normal.Gallbladder is unremarkable. No biliary distention. Portal vasculature is patent. Kidneys enhance symmetrically. No focal abnormality or hydronephrosis is seen. There is no hydroureter. Urinary bladder is distended. Uterus is not clearly seen. Prominent small bowel loops throughout the abdomen and pelvis. Moderate stool burden throughout the colon noted. No bowel obstruction is seen. No free air free fluid is present. Moderate atherosclerotic calcifications of the aorta noted. No aneurysmal dilation. IVC is normal. Bones peripheral soft tissues are unremarkable. IMPRESSION: Prominent small bowel loops may represent enteritis. No bowel obstruction. Moderate stool burden concerning for constipation. Moderate atherosclerotic disease of the abdominal aorta. at 1257 Reported and signed by: Donavon Blanco M.D. CC: Lou Sharp MD; Bryan Orta MD Technologist:Luis Moore, RT(R)(CT); .. CTDI: DLP: Trnscb Date/Time: 03/09/2019 (1257) [email or web address] Orig Print D/T: S: 10/2019 (1300) CTDI: DLP: PAGE 1 Signed ReportBASIC METABOLIC [id number] 07:37:00 Test Item Value Reference Range Comments SODIUM (test code=NA) 136 mmol/L 134-147 POTASSIUM (test code=K) 3.3 mmol/L 3.4-5.0 CHLORIDE (test code=CL) 107 mmol/L 100-108 CARBON DIOXIDE (test code=CO2) 19 mmol/L 21-32 ANION GAP (test code=GAP) 10.0 GAP calc 4.0-15.0 GLUCOSE (test code=GLU) 86 MG/DL 70-110 BLOOD UREA NITROGEN (test code=BUN) 14 MG/DL 7-18 GLOMERULAR FILTRATION RATE (test >=60 max estimate estGFR >60 code=GFR) CREATININE (test code=CREAT) 0.9 MG/DL 0.6-1.0 CALCIUM (test code=CA) 8.7 MG/DL 8.5-10.1 T4 [id number] 07:37:00 Test Item Value Reference Range Comments T4 FREE (test code=T4F) 0.70 NG/DL 0.89-1.76 THYROID STIMULATING [id number] 07:37:00 Test Item Value Reference Range Comments THYROID STIMULATING HORMONE (test code=TSH) 1.540 mcIU/ML 0.340-4.820 ACUTE HEPATITIS [id number] 07:33:00 Test Item Value Reference Range Comments AB HEPATITIS A IGM (test code=HAVMAB) AG HEPATITIS B SURFACE (test code=HBSAG) SCREEN NEGATIVE AB HEPATITIS B CORE IGM (test code=HBCMAB) AB HEPATITIS C (test code=HCVAB) RATIO <0.8 HIV 1 2 ANTIBODY [id number] 07:33:00 Test Item Value Reference Range Comments AB HIV 1 2 (test code=UWS91LN) NON REACTIVE SCREEN NONREACTIVE AG HIV1 P24 (test code=MVF0T89) NON REACTIVE P24 NONREACTIVE GLYCOSYLATED HEMOGLOBIN [id number] 07:26:00 Test Item Value Reference Range Comments GLYCOSYLATED HEMOGLOBIN (HA1C) (test 5.8 % A1C 4.2-6.3 code=GLYHGB) ESTIMATED AVERAGE GLUCOSE (test code=EAG) 120 MG/DLest CBC W/AUTO [id number] 07:21:00 Test Item Value Reference Range Comments WHITE BLOOD CELL (test code=WBC) 10.3 K/mm3 3.5-11.0 RED BLOOD CELL (test code=RBC) 3.88 M/mm3 4.70-6.10 HEMOGLOBIN (test code=HGB) 10.3 G/DL 10.4-14.9 HEMATOCRIT (test code=HCT) 30.3 % 31.5-44.1 MEAN CELL VOLUME (test code=MCV) 78.1 Fl 84.5-98.6 MEAN CELL HGB (test code=MCH) 26.5 pg 27.0-34.2 MEAN CELL HGB CONCETRATION (test code=MCHC) 34.0 G/DL 31.5-34.0 RED CELL DISTRIBUTION WIDTH (test code=RDW) 16.8 SD 11.5-14.5 PLATELET COUNT (test code=PLT) 370.0 K/mm3 150-450 MEAN PLATELET VOLUME (test code=MPV) 9.70 fL 7.0-10.5 NEUTROPHIL % (test code=NT%) 58.7 % 40-76 LYMPHOCYTE % (test code=LY%) 28.2 % 20.5-51.1 MONOCYTE % (test code=MO%) 11.2 % 1.7-9.3 EOSINOPHIL % (test code=EO%) 1.6 % 0.0-6.0 BASOPHIL % (test code=BA%) 0.3 % 0.0-2.0 NEUTROPHIL # (test code=NT#) 6.05 K/mm3 1.8-7.6 LYMPHOCYTE # (test code=LY#) 2.9 K/mm3 0.6-3.2 MONOCYTE # (test code=MO#) 1.2 K/mm3 0.3-1.1 EOSINOPHIL # (test code=EO#) 0.2 K/mm3 0.0-0.4 BASOPHIL # (test code=BA#) 0.0 K/mm3 0.0-0.1 MANUAL DIFF REQUIRED (test code=MDIFF) NO DIFF/SCN CRITERIA - CT HEAD/BRAIN W/O [id number] 19:39:00 [facility] [place] [facility] 1965 Age/S: 53 / F [address] Unit #: [id number] Loc: [place] [address] Phys: Maria Morel MD Acct: [id number] Dis Date: Status : ADM IN PHONE #: [phone] Exam Date: 03/08/2019 171 FAX #: Reason: near syncope EXAMS: CPT: [id number] CT HEAD/BRAIN W/O CONT 75078 CT head History: near syncope Comparison: None at this time Location: R16 Technique: Noncontrast CT scan of the head was performed. One or more of the following radiation dose reduction techniques was used: automated exposure control, adjustment of mA and/or KV according to patient size, and/or utilization of iterative reconstruction technique. Quality of Exam: Acceptable. The ventricles, sulciand cisterns are within normal limits in size for this age patient. There is no convincing evidence of intracranial hemorrhage or mass effect. There is no midline shift. The visualized paranasal sinuses are unremarkable. IMPRESSION: There is no imaging evidence of acute intracranial pathology. at 1939 Reported and signed by: Alfonso Mascorro M.D. CC: Lou Sharp MD; Maria Morel MD Technologist:Minal Lopez, RT(R)(CT) CTDI: DLP: Trnscb Date/Time: 03/08/2019 (1938) EsthelaPMT Orig Print D/T: S: 03/08/2019 (1941) CTDI: DLP: PAGE 1 Signed ReportDRUGS OF ABUSE SCREEN [id number] 19:12:00 Test Item Value Reference Range Comments URN COCAINE (test code=COCAURN) NEGATIVE SCcutoff <300 NG/ML URN CANNABINOIDS (test code=CANNABURN) NEGATIVE SCcutoff <50 NG/ML URN AMPHETAMINE (test code=AMPHETURN) NEGATIVE SCcutoff <1000 NG/ML URN BARBITURATE (test code=BARBITURN) NEGATIVE SCcutoff <200 NG/ML URN BENZODIAZEPINE (test code=BENZOURN) NEGATIVE SCcutoff <200 NG/ML URN OPIATES (test code=OPIATURN) NEGATIVE SCcutoff <2000 NG/ML URN PHENCYCLIDINE (PCP) (test NEGATIVE SCcutoff <25 NG/ML code=PHENCURN) URN METHADONE (test code=METHAURN) NEGATIVE SCcutoff <300 NG/ML COMPREHENSIVE METABOLIC [id number] 17:26:00 Test Item Value Reference Range Comments SODIUM (test code=NA) 133 mmol/L 134-147 POTASSIUM (test code=K) 3.7 mmol/L 3.4-5.0 CHLORIDE (test code=CL) 107 mmol/L 100-108 CARBON DIOXIDE (test code=CO2) 19 mmol/L 21-32 ANION GAP (test code=GAP) 7.0 GAP calc 4.0-15.0 GLUCOSE (test code=GLU) 83 MG/DL 70-110 BLOOD UREA NITROGEN (test code=BUN) 13 MG/DL 7-18 GLOMERULAR FILTRATION RATE (test >=60 max estimate estGFR >60 code=GFR) CREATININE (test code=CREAT) 0.8 MG/DL 0.6-1.0 TOTAL PROTEIN (test code=PROT) 6.7 G/DL 6.4-8.2 ALBUMIN (test code=ALB) 3.0 G/DL 3.4-5.0 GLOBULIN (test code=GLOB) 3.7 GM/dL ALBUMIN/GLOBULIN RATIO (test 0.8 RATIO 1.2-2.2 code=A/G) CALCIUM (test code=CA) 8.3 MG/DL 8.5-10.1 BILIRUBIN TOTAL (test code=BILT) 0.30 MG/DL 0.2-1.2 SGOT/AST (test code=AST) 41 Unit/L 15-37 SGPT/ALT (test code=ALT) 65 Unit/L 12-78 ALKALINE PHOSPHATASE TOTAL (test 103 Unit/L 45-117 code=ALKP) [id number] 17:26:00 Test Item Value Reference Range Comments MAGNESIUM (test code=MAG) 1.9 MG/DL 1.8-2.4 [id number] 17:26:00 Test Item Value Reference Range Comments ALCOHOL (test code=ALC) < 3 MG/DL 0-10 COMPREHENSIVE METABOLIC [id number] 17:21:00 Test Item Value Reference Range Comments SODIUM (test code=NA) 133 mmol/L 134-147 POTASSIUM (test code=K) 3.7 mmol/L 3.4-5.0 CHLORIDE (test code=CL) 107 mmol/L 100-108 CARBON DIOXIDE (test code=CO2) 19 mmol/L 21-32 ANION GAP (test code=GAP) 7.0 GAP calc 4.0-15.0 GLUCOSE (test code=GLU) 83 MG/DL 70-110 BLOOD UREA NITROGEN (test code=BUN) 13 MG/DL 7-18 GLOMERULAR FILTRATION RATE (test code=GFR) estGFR >60 CREATININE (test code=CREAT) MG/DL 0.6-1.0 TOTAL PROTEIN (test code=PROT) G/DL 6.4-8.2 ALBUMIN (test code=ALB) G/DL 3.4-5.0 GLOBULIN (test code=GLOB) GM/dL ALBUMIN/GLOBULIN RATIO (test code=A/G) RATIO 1.2-2.2 CALCIUM (test code=CA) 8.3 MG/DL 8.5-10.1 BILIRUBIN TOTAL (test code=BILT) MG/DL 0.2-1.2 SGOT/AST (test code=AST) Unit/L 15-37 SGPT/ALT (test code=ALT) Unit/L 12-78 ALKALINE PHOSPHATASE TOTAL (test code=ALKP) Unit/L 45-117 [id number] 17:21:00 Test Item Value Reference Range Comments MAGNESIUM (test code=MAG) MG/DL 1.8-2.4 [id number] 17:21:00 Test Item Value Reference Range Comments ALCOHOL (test code=ALC) MG/DL 0-10 CBC W/AUTO [id number] 17:08:00 Test Item Value Reference Range Comments WHITE BLOOD CELL (test code=WBC) 10.5 K/mm3 3.5-11.0 RED BLOOD CELL (test code=RBC) 4.13 M/mm3 4.70-6.10 HEMOGLOBIN (test code=HGB) 11.0 G/DL 10.4-14.9 HEMATOCRIT (test code=HCT) 32.7 % 31.5-44.1 MEAN CELL VOLUME (test code=MCV) 79.2 Fl 84.5-98.6 MEAN CELL HGB (test code=MCH) 26.6 pg 27.0-34.2 MEAN CELL HGB CONCETRATION (test code=MCHC) 33.6 G/DL 31.5-34.0 RED CELL DISTRIBUTION WIDTH (test code=RDW) 16.5 SD 11.5-14.5 PLATELET COUNT (test code=PLT) 467.0 K/mm3 150-450 MEAN PLATELET VOLUME (test code=MPV) 9.20 fL 7.0-10.5 NEUTROPHIL % (test code=NT%) 67.6 % 40-76 LYMPHOCYTE % (test code=LY%) 21.3 % 20.5-51.1 MONOCYTE % (test code=MO%) 10.2 % 1.7-9.3 EOSINOPHIL % (test code=EO%) 0.5 % 0.0-6.0 BASOPHIL % (test code=BA%) 0.4 % 0.0-2.0 NEUTROPHIL # (test code=NT#) 7.10 K/mm3 1.8-7.6 LYMPHOCYTE # (test code=LY#) 2.2 K/mm3 0.6-3.2 MONOCYTE # (test code=MO#) 1.1 K/mm3 0.3-1.1 EOSINOPHIL # (test code=EO#) 0.1 K/mm3 0.0-0.4 BASOPHIL # (test code=BA#) 0.0 K/mm3 0.0-0.1 MANUAL DIFF REQUIRED (test code=MDIFF) NO DIFF/SCN CRITERIA - XR CHEST 1 [id number] 16:33:00 Name: [facility] 1965 Age/S: 53 / F [address] Unit #: [id number] Loc: [place] [address] Phys: Maria Morel MD Acct: [id number] Dis Date: Status: PRE ER PHONE #: [phone] Exam Date: 03/08/2019 1629 FAX #: Reason: near syncope EXAMS: CPT: [id number] XR CHEST 1 V 25876 Fluoro Time: DAP (Gy m2): Air Kerma (mGy): LOCATION: T18 EXAM: CHEST 1 VIEW INDICATION: near syncope COMPARISON: Chest x-ray July 02, 2014 TECHNIQUE: AP chest radiograph. FINDINGS: Lungs are clear bilaterally withouteffusion. Heart and mediastinum are normal in size and contour. Intrathecal leads terminate in the mid thoracic spine. Bones and peripheral soft tissues are intact. IMPRESSION: Lungs are clear. No acute abnormality. at 3463 Reported and signed by: Donavon Blanco M.D. CC: Lou Sharp MD; Maria Morel MD PAGE 1 Signed Report Name: GINA MARIEland : 1965 Age/S: 53 / F [address] Unit #: [id number] Loc: [place] [address] Phys: Maria Morel MD Acct: [id number] Dis Date: Status: PRE ER PHONE #: [phone] Exam Date: 03/08/2019 1620 FAX #: Reason: near syncope EXAMS: CPT: [id number] XR CHEST 1 V 46624 Fluoro Time: DAP (Gy m2 ): Air Kerma (mGy): <Continued>Technologist: Nanette Gordon, RT(R)(CT) Trnscb Date/Time: 03/08/2019 (1683 ) [email or web address] Orig Print D/T: S: 03/08/2019 (2886) PAGE 2 Signed Report
--- NOTE | 2019-05-26 16:00 | RAD REPORT ---
EXAM DESCRIPTION: CT - Head Brain Wo Cont - 05/26/2019 3:31 pm CLINICAL HISTORY: Headache COMPARISON: January 2019 TECHNIQUE: Computed axial tomography of the head was obtained. IV contrast was not requested. All CT scans are performed using dose optimization technique as appropriate and may include automated exposure control or mA/KV adjustment according to patient size. FINDINGS: An intracranial bleed is not seen . The ventricles are normal in caliber. No extra-axial fluid collection is noted. Fluid within the sinuses/ mastoids is not seen. IMPRESSION: No acute intracranial abnormality is seen. If patient's symptoms persist MRI of the bra in would be recommended.
[2019-05-26 16:01] LABS: Absolute Lymphocytes (CBC) 1.3 K/uL (0.7-4.9); Basophils % 0.2 % (0-1.3); Hematocrit 30.9 % (36.0-45.0); Lymphocytes % 6.3 % (15.3-44.8); MPV 7.1 fL (7.6-11.3); Monocytes % 3.2 % (3.3-12.3)
--- NOTE | 2019-05-26 16:08 | RAD REPORT ---
EXAM DESCRIPTION: CT - Stone Protocol - 05/26/2019 3:33 pm CLINICAL HISTORY: Abdominal pain. Lower abdominal pain. Urinary frequency COMPARISON: None. TECHNIQUE: Computed axial tomography of the abdomen pelvis was obtained without oral or IV contrast. Lack of IV and oral contrast limits evaluation of solid organs, bowel, and vessels. Coronal reformat aleksandr images were obtained and reviewed. All CT scans are performed using dose optimization technique as appropriate and may include automated exposure control or mA/KV adjustment according to patient size. FINDINGS: A renal calculus is not seen. An ureteral calculus is not noted. A bladder calculus is not present. The liver, spleen, pancreas and adrenals appear grossly normal. Several small peripancreatic calcific ation There is no evidence of diverticulitis. A neurostimulator device is in place Gallbladder distention. Mild dilatation of the extrahepatic biliary tree Moderate amount of stool throughout the colon IMPRESSION: Negative for a genitourinary calculus Gallbladder distention with mild dilatation of the extrahepatic biliary tree
[2019-05-26] MEDS ORDERED: ONDANSETRON 4 MG/2 ML VIAL ONE (16:09)
[2019-05-26] MEDS ORDERED: NA CHLORIDE 0.9% 1,000 ML ONE (16:09)
[2019-05-26 16:14] LABS: BUN Blood Urea Nitrogen 15 mg/dL (7-18); Bicarbonate 21 mmol/L (21-32); Glucose Level 128 mg/dL (74-106); Potassium 3.4 mmol/L (3.5-5.1); Sodium Level 134 mmol/L (136-145)
[2019-05-26 16:29] LABS: Lipase 39 U/L (73-393)
[2019-05-26 16:57] LABS: Platelet Estimate INCR
[2019-05-26 16:58] LABS: Blood Morphology Comment NOT SEEN (NOT SEEN)
[2019-05-26 17:20] LABS: ALT/SGPT 16 U/L (12-78); AST/SGOT 23 U/L (15-37); Alkaline Phosphatase 110 U/L (45-117); Bilirubin Direct < 0.1 mg/dL (0-0.2); Bilirubin Total 0.2 mg/dL (0.2-1.0)
[2019-05-26 17:21] LABS: Albumin 3.5 g/dL (3.4-5.0); Protein, Total 7.3 g/dL (6.4-8.2)
[2019-05-26 17:27] LABS: Urine Blood NEGATIVE (NEG); Urine Glucose NEGATIVE (NEG); Urine Protein 1+ (NEG)
[2019-05-26 17:30] LABS: Urine Bacteria NONE SEEN /HPF (<20); Urine Culture Reflex Order NOT NEEDED; Urine RBC <5 /HPF (NONE SEEN)
--- NOTE | 2019-05-26 18:24 | EDPHYS ---
Physician Documentation [facility] Name: Pratibha Jennings Age: 53 yrs Sex: Female : 1965 Arrival Date: 05/26/2019 Time: 14:16 Bed 16 Private MD: Von Chaves C ED Physician Rigoberto Carmichael HPI: 05/26 16:17 This 53 yrs old Female presents to ER via Wheelchair with complaints of rn Headache, back pain. 16:17 The patient complains of pain to the top of head. The patient describes the headache as rn aching. Onset: The symptoms/episode began/occurred at an unknown time. Severity of symptoms: At its worst the pain was moderate, in the emergency department the pain is unchanged. The patient has experienced similar episodes in the past. Reports combination of headache, back pain, unknown onset. Assoc with nausea and vomiting. NO fever. NO trauma. Has not run out of pain medication lately. No diarrhea. REports majority of pain of back located around stimulator implant which has been non-functional for sometime now. . 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 aj1 Historical: - Allergies: 14:39 Iodine; topical; aj1 - Home Meds: 14:39 Ambien 5 mg Oral tab 1 tab once daily [Active]; amlodipine oral [Active]; atorvastatin aj1 Oral [Active]; Fluoxetine Oral [Active]; gabapentin 600 mg Oral tab 1 tab daily [Active]; Hydroxyzine Oral [Active]; lidocaine patch [Active]; morphine 15 mg Oral tab 1 tab every 4 hours [Active]; Neurontin 600 mg Oral tab 1 tab daily [Active]; Propranolol Oral [Active]; Protonix Oral [Active]; tizanidine 4 mg Oral cap 1 cap [Active]; Zofran Oral [Active]; oxycodone-acetaminophen 10-650 mg Oral tab 1 tab every 6 hours [Active]; - PMHx: 14:39 ADD/ADHD; Back pain; Chronic pain; Degenerative disc disease; Hyperlipidemia; aj1 Hypertension; - Immunization history:: Flu vaccine is up to date. - Social history:: Smoking status: Patient uses tobacco products, smokes one-half pack cigarettes per day. - Ebola Screening: : Patient denies travel to an Ebola-affected area in the 21 days before illness onset. - Family history:: not pertinent. - Hospitalizations: : No recent hospitalization is reported. ROS: 16:17 Constitutional: Negative for fever, chills, and weight loss, Neck: Negative for injury, rn pain, and swelling, Cardiovascular: Negative for chest pain, palpitations, and edema, Respiratory: Negative for shortness of breath, cough, wheezing, and pleuritic chest pain, Abdomen/GI: Negative for diarrhea, and constipation, Back: + back pain : Negative for injury, bleeding, discharge, and swelling, MS/Extremity: Negative for injury and deformity, Skin: Negative for injury, rash, and discoloration, Neuro: Negative for numbness, tingling, and seizure. Exam: 16:17 Constitutional: Thin female, appears to be in pain, fragmented speech but redirectible rn Head/Face: Normocephalic, atraumatic. Eyes: Pupils equal round and reactive to light, extra-ocular motions intact. Lids and lashes normal. Conjunctiva and sclera are non-icteric and not injected. Cornea within normal limits. Periorbital areas with no swelling, redness, or edema. ENT: dry MM Cardiovascular: Regular rate and rhythm. No pulse deficits. Respiratory: Lungs have equal breath sounds bilaterally, clear to auscultation Abdomen/GI: soft, mild mid abd tenderness, no rebound Back: NO spinal tenderness, + mild tenderness around stimulator but no overlying skin changes or fluctuance. MS/ Extremity: Pulses equal, no cyanosis. Neurovascular intact. Full, normal range of motion. Equal circumference. Neuro: Awake and alert, GCS 15, oriented to person, place, time, and situation. Cranial nerves II-XII grossly intact. Motor strength 5/5 in all extremities. Sensory grossly intact. Vital Signs: 14:39 BP 113 / 73; Pulse 113; Resp 20; Temp 98.1; Pulse Ox 97% on R/A; Weight 48.08 kg (R); aj1 Height 5 ft. 5 in. (165.10 cm) (R); Pain 10/10; 15:39 BP 125 / 56; Pulse 92; Resp 18; Temp 98.2(O); Pulse Ox 97% ; Pain 10/10; rb1 16:30 BP 112 / 62; Pulse 95; Resp 17; Temp 98.1(O); Pulse Ox 100% on R/A; Pain 10/10; rb1 17:30 BP 132 / 67; Pulse 92; Resp 18; Temp 98.2(O); Pulse Ox 100% on R/A; Pain 8/10; rb1 18:30 BP 133 / 69; Pulse 93; Resp 17; Temp 98.4(O); Pulse Ox 98% on R/A; Pain 6/10; rb1 14:39 Body Mass Index 17.64 (48.08 kg, 165.10 cm) aj1 Latty Coma Score: 18:16 Eye Response: spontaneous(4). Verbal Response: oriented(5). Motor Response: obeys rn commands(6). Total: 15. MDM: 14:52 Patient medically screened. rn 18:16 Differential diagnosis: migraine, tension headache, vasomotor headache, UTI, rn cholecystitis, choledocholithiasis, nonspecific pain, chronic pain, back pain, migraine. Data reviewed: vital signs, nurses notes, lab test result(s), radiologic studies, CT scan, ultrasound, and as a result, I will discharge patient. Counseling: I had a detailed discussion with the patient and/or guardian regarding: the historical points, exam findings, and any diagnostic results supporting the discharge/admit diagnosis, the need to transfer to another facility. Response to treatment: the patient's symptoms have markedly improved after treatment, the patient's condition has returned to base line, the patient is now symptom free. ED course: Spoke long with patient and , patient is ambulatory, smiling, joking, pain free, looks like different person. Spoke to them about elevated WBC and swollen gallbladder, + dilated CBD, told them need for transfer given we do not have GI community integration specialist and needs ERCP given has implant and can't get MRCP. On reeval, patient with benign abd exam and denies pain with eating. I looked at multiple other imaging studies from her in past and this finding seems new at some point in last 6 months. Normal LFTs a little perplexing however. Was very candid about my concerns and research findings, family and want to go home, don't want to be transferred, understand return precautions, and plan to see their GI doctor, Dr dickerson on Tuesday. . 05/26 15:14 Order name: CBC with Diff; Complete Time: 17:19 rn 05/26 15:14 Order name: Basic Metabolic Panel; Complete Time: 17:26 rn 05/26 15:14 Order name: Urine Microscopic Only; Complete Time: 17:45 rn 05/26 16:14 Order name: LAB Add On eb 05/26 16:19 Order name: Manual Differential; Complete Time: 17:19 EDNE 05/26 16:24 Order name: Lipase; Complete Time: 17:26 EDNE 05/26 15:14 Order name: CT Head Brain wo Cont; Complete Time: 16:12 rn 05/26 15:14 Order name: CT Stone Protocol; Complete Time: 16:12 rn 05/26 15:14 Order name: IV Start; Complete Time: 15:52 rn 05/26 16:13 Order name: US Abdomen Limited rn 05/26 17:17 Order name: Urine Dipstick--Ancillary (enter results); Complete Time: 17:32 05/26 17:18 Order name: Liver (Hepatic) Function; Complete Time: 17:26 EDNE 05/26 15:14 Order name: Urine Dipstick-Ancillary (obtain specimen); Complete Time: 17:15 rn Administered Medications: 15:55 Drug: NS 0.9% 1000 ml Route: IV; Rate: 1000 ml; Site: left antecubital; rb1 17:09 Follow up: IV Status: Completed infusion rb1 15:55 Drug: Zofran 4 mg Route: IVP; Site: left antecubital; rb1 16:10 Follow up: Response: No adverse reaction; Nausea is decreased rb1 Disposition: 05/26/19 18:22 Discharged to Home. Impression: Vomiting, Migraine, Low back pain, Gallbladder distension. - Condition is Stable. - Discharge Instructions: Chronic Back Pain, Migraine Headache, Nausea and Vomiting, Adult. - Prescriptions for Zofran ODT 4 mg Oral tablet,disintegrating - place 1 tablet by TRANSLINGUAL route every 8 hours As needed; 15 tablet. - Medication Reconciliation Form, Thank You Letter, Antibiotic Education, Prescription Opioid Use form. - Follow up: Lou Dickerson MD; When: 1 - 2 days; Reason: Recheck today's complaints, Re-evaluation by your physician. - Problem is new. - Symptoms have improved. Signatures: Dispatcher [employer] [facility] Dionna Chinchilla RN RN aj1 Carmichael, Rigoberto, MD MD rn Blanca, Katya, RN RN rb1 Corrections: (The following items were deleted from the chart) 18:24 18:22 05/26/2019 18:22 Discharged to Home. Impression: Vomiting; Migraine; Low back rn pain. Condition is Stable. Forms are Medication Reconciliation Form, Thank You Letter, Antibiotic Education, Prescription Opioid Use. Follow up: Lou Dickerson; When: 1 - 2 days; Reason: Recheck today's complaints, Re-evaluation by your physician. Problem is new. Symptoms have improved. rn 18:43 18:24 05/26/2019 18:22 Discharged to Home. Impression: Vomiting; Migraine; Low back rb1 pain; Gallbladder distension. Condition is Stable. Forms are Medication Reconciliation Form, Thank You Letter, Antibiotic Education, Prescription Opioid Use. Follow up: Lou Dickerson; When: 1 - 2 days; Reason: Recheck today's complaints, Re-evaluation by your physician. Problem is new. Symptoms have improved. rn
--- NOTE | 2019-05-26 18:24 | ER ---
Nurse's Notes [facility] Name: Pratibha Jennings Age: 53 yrs Sex: Female : 1965 Arrival Date: 05/26/2019 Time: 14:16 Bed 16 Private MD: Von Chaves C Diagnosis: Vomiting;Migraine;Low back pain;Gallbladder distension Presentation: 05/26 14:35 Presenting complaint: Patient states: "I'm in so much pain, my back hurts, I'm not out aj1 of my medication, and I just keep getting so sick," Patient also reports a headache a light senstivity. Transition of care: patient was not received from another setting of care. Onset of symptoms is unknown. Risk Assessment: Do you want to hurt yourself or someone else? Patient reports no desire to harm self or others. Initial Sepsis Screen: Does the patient meet any 2 criteria? HR > 90 bpm. No. Patient's initial sepsis screen is negative. Does the patient have a suspected source of infection? No. Patient's initial sepsis screen is negative. Care prior to arrival: None. 14:35 Method Of Arrival: Wheelchair aj1 14:35 Acuity: NUSRAT 3 aj1 Triage Assessment: 14:39 Headache History: The patient has had previous headaches. General: Appears in no aj1 apparent distress. uncomfortable, Behavior is cooperative, anxious, restless. Pain: Complains of pain in face and back Pain currently is 10 out of 10 on a pain scale. Pain began Patient is unsure when the pain started Also complains of nausea. Neuro: Level of Consciousness is awake, alert, obeys commands. Cardiovascular: Patient's skin is warm and dry. Respiratory: Airway is patent Respiratory effort is even, unlabored, Respiratory pattern is regular, symmetrical. 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 aj1 Historical: - Allergies: 14:39 Iodine; topical; aj1 - Home Meds: 14:39 Ambien 5 mg Oral tab 1 tab once daily [Active]; amlodipine oral [Active]; atorvastatin aj1 Oral [Active]; Fluoxetine Oral [Active]; gabapentin 600 mg Oral tab 1 tab daily [Active]; Hydroxyzine Oral [Active]; lidocaine patch [Active]; morphine 15 mg Oral tab 1 tab every 4 hours [Active]; Neurontin 600 mg Oral tab 1 tab daily [Active]; Propranolol Oral [Active]; Protonix Oral [Active]; tizanidine 4 mg Oral cap 1 cap [Active]; Zofran Oral [Active]; oxycodone-acetaminophen 10-650 mg Oral tab 1 tab every 6 hours [Active]; - PMHx: 14:39 ADD/ADHD; Back pain; Chronic pain; Degenerative disc disease; Hyperlipidemia; aj1 Hypertension; - Immunization history:: Flu vaccine is up to date. - Social history:: Smoking status: Patient uses tobacco products, smokes one-half pack cigarettes per day. - Ebola Screening: : Patient denies travel to an Ebola-affected area in the 21 days before illness onset. - Family history:: not pertinent. - Hospitalizations: : No recent hospitalization is reported. Screenin:45 Abuse screen: Denies threats or abuse. Nutritional screening: No deficits noted. rb1 Tuberculosis screening: No symptoms or risk factors identified. Fall Risk Fall in past 12 months (25 points). No secondary diagnosis (0 pts). IV access (20 points). Ambulatory Aid- None/Bed Rest/Nurse Assist (0 pts). Gait- Normal/Bed Rest/Wheelchair (0 pts) Mental Status- Oriented to own ability (0 pts). Total Carranza Fall Scale indicates High Risk Score (45 or more points). Fall prevention measures have been instituted. Side Rails Up X 2 Placed Close to Nursing Station 1:1 Attendant Assigned Frequent Obs/Assessments Occuring As available patient and family educated on Fall Prevention Program and Strategies. Assessment: 14:45 General: Appears uncomfortable, slender, Behavior is calm, cooperative, Denies fever. rb1 Pain: Complains of pain in back and head Pain currently is 10 out of 10 on a pain scale. Neuro: Level of Consciousness is awake, alert, obeys commands, Oriented to person, place, time, situation. Cardiovascular: Capillary refill < 3 seconds is brisk in bilateral fingers. Respiratory: Airway is patent Respiratory effort is even, unlabored, Respiratory pattern is regular, symmetrical. GI: No signs and/or symptoms were reported involving the gastrointestinal system. : No signs and/or symptoms were reported regarding the genitourinary system. Derm: Skin is pink, warm \\T\\ dry. Musculoskeletal: Range of motion: intact in all extremities. 15:39 Reassessment: Patient appears in no apparent distress at this time. No changes from rb1 previously documented assessment. 16:38 Reassessment: Patient appears in no apparent distress at this time. Patient and/or rb1 family updated on plan of care and expected duration. Pain level reassessed. Patient is alert, oriented x 3, equal unlabored respirations, skin warm/dry/pink. at bedside. 17:02 Reassessment: US at pt. bedside. rb1 17:25 Reassessment: Patient appears in no apparent distress at this time. Patient and/or rb1 family updated on plan of care and expected duration. Pain level reassessed. Patient is alert, oriented x 3, equal unlabored respirations, skin warm/dry/pink. Pt. is ambulating in the barnes without difficulty. 17:46 Reassessment: Dr. Carmichael is at the pt. bedside. rb1 18:41 Reassessment: Patient appears in no apparent distress at this time. No changes from rb1 previously documented assessment. Vital Signs: 14:39 BP 113 / 73; Pulse 113; Resp 20; Temp 98.1; Pulse Ox 97% on R/A; Weight 48.08 kg (R); aj1 Height 5 ft. 5 in. (165.10 cm) (R); Pain 10/10; 15:39 BP 125 / 56; Pulse 92; Resp 18; Temp 98.2(O); Pulse Ox 97% ; Pain 10/10; rb1 16:30 BP 112 / 62; Pulse 95; Resp 17; Temp 98.1(O); Pulse Ox 100% on R/A; Pain 10/10; rb1 17:30 BP 132 / 67; Pulse 92; Resp 18; Temp 98.2(O); Pulse Ox 100% on R/A; Pain 8/10; rb1 18:30 BP 133 / 69; Pulse 93; Resp 17; Temp 98.4(O); Pulse Ox 98% on R/A; Pain 6/10; rb1 14:39 Body Mass Index 17.64 (48.08 kg, 165.10 cm) aj1 [place] Coma Score: 18:16 Eye Response: spontaneous(4). Verbal Response: oriented(5). Motor Response: obeys rn commands(6). Total: 15. ED Course: 14:16 Patient arrived in ED. as 14:17 Von Chaves MD is Private Physician. as 14:37 Triage completed. aj1 14:39 Arm band placed on Patient placed in an exam room. aj1 14:45 Patient has correct armband on for positive identification. Bed in low position. Call rb1 light in reach. Side rails up X 1. Pulse ox on. NIBP on. Warm blanket given. 14:52 Rigoberto Carmichael MD is Attending Physician. rn 15:32 CT Head Brain wo Cont In Process Unspecified. EDMS 15:33 Katya Blanca, RN is Primary Nurse. rb1 15:33 CT Stone Protocol In Process Unspecified. EDMS 17:10 Ultrasound completed. Patient tolerated well. sg3 17:12 US Abdomen Limited In Process Unspecified. EDMS 18:22 Lou Sharp MD is Referral Physician. rn 18:42 No provider procedures requiring assistance completed. IV discontinued, intact, rb1 bleeding controlled, No redness/swelling at site. Pressure dressing applied. Administered Medications: 15:55 Drug: NS 0.9% 1000 ml Route: IV; Rate: 1000 ml; Site: left antecubital; rb1 17:09 Follow up: IV Status: Completed infusion rb1 15:55 Drug: Zofran 4 mg Route: IVP; Site: left antecubital; rb1 16:10 Follow up: Response: No adverse reaction; Nausea is decreased rb1 Outcome: 18:22 Discharge ordered by MD. rn 18:42 Discharged to home ambulatory, with significant other. rb1 18:42 Condition: stable 18:42 Discharge instructions given to patient, Instructed on discharge instructions, follow up and referral plans. medication usage, Demonstrated understanding of instructions, follow-up care, medications, Prescriptions given X 1. 18:43 Patient left the ED. rb1 Signatures: Dispatcher [employer] EDAL Dionna Chinchilla RN RN [email or web address] Loraine Greene as Rigoberto Carmichael MD MD rn Barber, Rebecca, RN RN rb1 Amaris Andrew sg3
[2019-05-26 19:38] VITALS: BP 133/69; TEMP 98.4; O2SAT 98
--- NOTE | 2019-05-26 20:34 | RAD REPORT ---
EXAM DESCRIPTION: US - Abdomen Exam Limited - 05/26/2019 5:11 pm CLINICAL HISTORY: Abdominal pain. COMPARISON: Unenhanced CT abdomen May 26, 2019 FINDINGS: Gallbladder is distended. Gallbladder wall is not thickened. A gallstone is not seen. Common bile duct is dilated measuring 9 millimeters IMPRESSION: Gallbladder distention Dilated common bile duct. Either an ERCP or enhanced CT or MRI
== END 2019-05-26 18:43 | disposition home or self-care (01) ==
LOC: ER 14:15
DX: G43.909 Migraine, unspecified, not intractable, without status migrainosus (principal); K82.8 Other specified diseases of gallbladder; M54.5 Low back pain; R11.10 Vomiting, unspecified; F17.210 Nicotine dependence, cigarettes, uncomplicated; I10 Essential (primary) hypertension; E78.5 Hyperlipidemia, unspecified; F90.9 Attention-deficit hyperactivity disorder, unspecified type; Z91.048 Other nonmedicinal substance allergy status
CPT/HCPCS: 36415; 70450; 74176; 76377; 76705; 80048; 80076; 81003; 81015; 83690; 85025; 96361; 96374; 99284; J2405; J7030

== ENCOUNTER 2019-09-01 08:20 | Emergency (ER) | payer BC ==
[2019-09-01] MEDS ORDERED: dexAMETHasone 10 MG/ML VIAL ONE (08:45)
[2019-09-01] MEDS ORDERED: KETOROLAC 30 MG/ML INJ ONE (08:45)
[2019-09-01] MEDS ORDERED: METHOCARBAMOL 1,000 MG in NA CHLORIDE 0.9% 100 ML IV ONE (09:00)
[2019-09-01] MEDS ORDERED: ONDANSETRON 4 MG/2 ML VIAL ONE (10:03)
--- NOTE | 2019-09-01 10:10 | ER ---
Nurse's Notes [facility] Name: Partibha Jennings Age: 53 yrs Sex: Female : 1965 Arrival Date: 09/01/2019 Time: 08:22 Bed 5 Private MD: Diagnosis: Low back pain Presentation: 09/01 08:23 Presenting complaint: Patient states: "for the last 3 days I've been having back pain aa5 and haven't been able to sleep because of it". Pt reports back pain is chronic and is now radiating to heath hips and right leg. Pt reports she takes Oxycodone, Zanaflex, and Gabapentin. 08:23 Transition of care: patient was not received from another setting of care. Onset of aa5 symptoms was August 2019. 08:23 Acuity: NUSRAT 3 aa5 08:23 Method Of Arrival: Ambulatory aa5 08:26 Risk Assessment: Do you want to hurt yourself or someone else? Patient reports no tw2 desire to harm self or others. Initial Sepsis Screen: Does the patient meet any 2 criteria? No. Patient's initial sepsis screen is negative. Does the patient have a suspected source of infection? No. Patient's initial sepsis screen is negative. Care prior to arrival: None. 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 tw2 Historical: - Allergies: 08:23 Iodine; topical; aa5 - Home Meds: 08:57 Ambien 5 mg Oral tab 1 tab once daily [Active]; amlodipine oral [Active]; atorvastatin tw2 Oral [Active]; Fluoxetine Oral [Active]; gabapentin 600 mg Oral tab 1 tab daily [Active]; Hydroxyzine Oral [Active]; lidocaine patch [Active]; morphine 15 mg Oral tab 1 tab every 4 hours [Active]; Neurontin 600 mg Oral tab 1 tab daily [Active]; oxycodone-acetaminophen 10-650 mg Oral tab 1 tab every 6 hours [Active]; Propranolol Oral [Active]; Protonix Oral [Active]; tizanidine 4 mg Oral cap 1 cap [Active]; Zofran Oral [Active]; - PMHx: 08:23 ADD/ADHD; Back pain; Chronic pain; Degenerative disc disease; Hyperlipidemia; aa5 Hypertension; - Immunization history:: Adult Immunizations. - Ebola Screening: : No symptoms or risks identified at this time. - Social history:: Smoking status: . Screenin:26 Abuse screen: Denies threats or abuse. Nutritional screening: No deficits noted. tw2 Tuberculosis screening: No symptoms or risk factors identified. Fall Risk None identified. Assessment: 08:55 General: Appears uncomfortable, slender, Behavior is calm, cooperative, appropriate for tw2 age. Pain: Complains of pain in back. Neuro: Level of Consciousness is awake, alert, obeys commands, Oriented to person, place, time, situation. Cardiovascular: Heart tones S1 S2 Patient's skin is warm and dry. Respiratory: Airway is patent Respiratory effort is even, unlabored, Respiratory pattern is regular, symmetrical, Breath sounds are clear bilaterally. GI: No signs and/or symptoms were reported involving the gastrointestinal system. : No signs and/or symptoms were reported regarding the genitourinary system. EENT: No signs and/or symptoms were reported regarding the EENT system. Derm: No signs and/or symptoms reported regarding the dermatologic system. Musculoskeletal: Reports pain in left leg and right leg and right low back and left low back. 09:39 Reassessment: No changes from previously documented assessment. Patient and/or family tw2 updated on plan of care and expected duration. Pain level reassessed. Patient is alert, oriented x 3, equal unlabored respirations, skin warm/dry/pink. 10:06 Reassessment: pt c/o nausea, medicated as ordered. tw2 10:16 Reassessment: No changes from previously documented assessment. Patient and/or family tw2 updated on plan of care and expected duration. Pain level reassessed. Patient is alert, oriented x 3, equal unlabored respirations, skin warm/dry/pink. Vital Signs: 08:23 BP 172 / 79; Pulse 91; Resp 16 S; Temp 98.6(TE); Pulse Ox 99% on R/A; Weight 54.43 kg aa5 (R); Height 5 ft. 4 in. (162.56 cm) (R); Pain 8/10; 09:39 BP 139 / 76; Pulse 99; Resp 17; Pulse Ox 100% on R/A; tw2 10:06 BP 161 / 85; Pulse 85; Resp 17; Pulse Ox 100% on R/A; tw2 08:23 Body Mass Index 20.60 (54.43 kg, 162.56 cm) aa5 ED Course: 08:22 Patient arrived in ED. as 08:22 Eliezer Brenner PA is [facility]. jr8 08:22 Rigoberto Carmichael MD is Attending Physician. jr8 08:26 Arm band placed on. tw2 08:26 Bed in low position. Call light in reach. tw2 08:37 Triage completed. aa5 08:40 Mayra Dailey RN is Primary Nurse. tw2 08:50 Inserted saline lock: 22 gauge in right wrist, using aseptic technique. tw2 10:15 No provider procedures requiring assistance completed. IV discontinued, intact, tw2 bleeding controlled, No redness/swelling at site. Pressure dressing applied. Administered Medications: 08:52 Drug: Decadron - Dexamethasone 10 mg Route: IVP; Site: right wrist; tw2 10:15 Follow up: Response: No adverse reaction; Nausea is decreased tw2 10:15 Follow up: Response: No adverse reaction tw2 08:54 Drug: TORadol - Ketorolac 15 mg Route: IVP; Site: right wrist; tw2 10:15 Follow up: Response: No adverse reaction; Pain is unchanged, physician notified tw2 09:05 Drug: Robaxin 1 grams Route: IVPB; Infused Over: 1 hrs; Site: right wrist; tw2 10:06 Follow up: Response: No adverse reaction; IV Status: Completed infusion tw2 10:06 Drug: Zofran 4 mg Route: IVP; Site: right wrist; tw2 10:15 Follow up: Response: No adverse reaction tw2 Outcome: 10:09 Discharge ordered by . jr8 10:16 Discharged to home ambulatory. tw2 10:16 Condition: stable 10:16 Discharge instructions given to patient, Instructed on discharge instructions, follow up and referral plans. Demonstrated understanding of instructions, follow-up care. 10:16 Patient left the ED. tw2 Signatures: Loraine Greene Audri RN RN aa5 Eliezer Brenner PA PA jr8 Mayra Dailey RN RN tw2
--- NOTE | 2019-09-01 10:11 | EDPHYS ---
Physician Documentation [facility] Name: Pratibha Jennings Age: 53 yrs Sex: Female : 1965 Arrival Date: 09/01/2019 Time: 08:22 Bed 5 Private MD: ED Physician Rigoberto Carmichael HPI: 09/01 08:42 This 53 yrs old Female presents to ER via Ambulatory with complaints of Back jr8 Pain. 08:42 The patient presents with pain that is chronic, with no known mechanism of injury. The jr8 symptoms are located in the low back, left low back and right low back. Onset: The symptoms/episode began/occurred 3 day(s) ago. The pain radiates to the right leg and left leg. Associated signs and symptoms: Pertinent negatives: incontinence, numbness, urinary retention. Severity of symptoms: At their worst the symptoms were moderate, in the emergency department the symptoms are unchanged. Pt has chronic back pain, has had extensive workup, has nerve stimulator, takes oxycodone, zanaflex at home without relief. Pain got worse three days prior and reports being unable to sleep or complete ADLs. . 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 tw2 Historical: - Allergies: 08:23 Iodine; topical; aa5 - Home Meds: 08:57 Ambien 5 mg Oral tab 1 tab once daily [Active]; amlodipine oral [Active]; atorvastatin tw2 Oral [Active]; Fluoxetine Oral [Active]; gabapentin 600 mg Oral tab 1 tab daily [Active]; Hydroxyzine Oral [Active]; lidocaine patch [Active]; morphine 15 mg Oral tab 1 tab every 4 hours [Active]; Neurontin 600 mg Oral tab 1 tab daily [Active]; oxycodone-acetaminophen 10-650 mg Oral tab 1 tab every 6 hours [Active]; Propranolol Oral [Active]; Protonix Oral [Active]; tizanidine 4 mg Oral cap 1 cap [Active]; Zofran Oral [Active]; - PMHx: 08:23 ADD/ADHD; Back pain; Chronic pain; Degenerative disc disease; Hyperlipidemia; aa5 Hypertension; - Immunization history:: Adult Immunizations. - Ebola Screening: : No symptoms or risks identified at this time. - Social history:: Smoking status: . ROS: 08:42 Constitutional: Negative for fever, chills, and weight loss, Eyes: Negative for injury, jr8 pain, redness, and discharge, ENT: Negative for injury, pain, and discharge, Neck: Negative for injury, pain, and swelling, Cardiovascular: Negative for chest pain, palpitations, and edema, Respiratory: Negative for shortness of breath, cough, wheezing, and pleuritic chest pain, Abdomen/GI: Negative for abdominal pain, nausea, vomiting, diarrhea, and constipation, Skin: Negative for injury, rash, and discoloration, Neuro: Negative for headache, weakness, numbness, tingling, and seizure. 08:42 Back: Positive for pain at rest, pain with movement, radiated pain, Negative for injury or acute deformity, acute changes. 08:42 MS/extremity: Negative for acute changes, decreased range of motion. Exam: 08:45 Constitutional: This is a well developed, well nourished patient who is awake, alert, jr8 and in no acute distress. Head/Face: Normocephalic, atraumatic. Eyes: Pupils equal round and reactive to light, extra-ocular motions intact. Lids and lashes normal. Conjunctiva and sclera are non-icteric and not injected. Cornea within normal limits. Periorbital areas with no swelling, redness, or edema. ENT: Nares patent. No nasal discharge, no septal abnormalities noted. Tympanic membranes are normal and external auditory canals are clear. Oropharynx with no redness, swelling, or masses, exudates, or evidence of obstruction, uvula midline. Mucous membranes moist. Neck: Trachea midline, no thyromegaly or masses palpated, and no cervical lymphadenopathy. Supple, full range of motion without nuchal rigidity, or vertebral point tenderness. No Meningismus. Chest/axilla: Normal chest wall appearance and motion. Nontender with no deformity. No lesions are appreciated. Cardiovascular: Regular rate and rhythm with a normal S1 and S2. No gallops, murmurs, or rubs. Normal PMI, no JVD. No pulse deficits. Respiratory: Lungs have equal breath sounds bilaterally, clear to auscultation and percussion. No rales, rhonchi or wheezes noted. No increased work of breathing, no retractions or nasal flaring. Abdomen/GI: Soft, non-tender, with normal bowel sounds. No distension or tympany. No guarding or rebound. No evidence of tenderness throughout. Skin: Warm, dry with normal turgor. Normal color with no rashes, no lesions, and no evidence of cellulitis. 08:45 Back: pain, that is moderate, of the left low back and right low back, ROM is painful, CVA tenderness, is absent, vertebral tenderness, is not appreciated, muscle spasm, is appreciated in the left low back and right low back. 08:45 Neuro: Orientation: is normal, Motor: is normal, Sensation: is normal. Vital Signs: 08:23 BP 172 / 79; Pulse 91; Resp 16 S; Temp 98.6(TE); Pulse Ox 99% on R/A; Weight 54.43 kg aa5 (R); Height 5 ft. 4 in. (162.56 cm) (R); Pain 8/10; 09:39 BP 139 / 76; Pulse 99; Resp 17; Pulse Ox 100% on R/A; tw2 10:06 BP 161 / 85; Pulse 85; Resp 17; Pulse Ox 100% on R/A; tw2 08:23 Body Mass Index 20.60 (54.43 kg, 162.56 cm) aa5 MDM: 08:33 Patient medically screened. jr8 10:06 Data reviewed: vital signs, nurses notes, and as a result, I will discharge patient. jr8 Data interpreted: Pulse oximetry: on room air is 100 %. Interpretation: normal. 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 Response to treatment: the patient's symptoms have mildly improved after treatment. ED course: Pt pain mildly improved, still uncomfortable. Discussed need for follow up with her pain management doctor and her spinal surgeon. Pt ambulatory, discussed use of lidocaine patches, exercises, warm baths. Pt given return precautions. . 09/01 08:41 Order name: IV Start; Complete Time: 08:55 tw2 Administered Medications: 08:52 Drug: Decadron - Dexamethasone 10 mg Route: IVP; Site: right wrist; tw2 10:15 Follow up: Response: No adverse reaction; Nausea is decreased tw2 10:15 Follow up: Response: No adverse reaction tw2 08:54 Drug: TORadol - Ketorolac 15 mg Route: IVP; Site: right wrist; tw2 10:15 Follow up: Response: No adverse reaction; Pain is unchanged, physician notified tw2 09:05 Drug: Robaxin 1 grams Route: IVPB; Infused Over: 1 hrs; Site: right wrist; tw2 10:06 Follow up: Response: No adverse reaction; IV Status: Completed infusion tw2 10:06 Drug: Zofran 4 mg Route: IVP; Site: right wrist; tw2 10:15 Follow up: Response: No adverse reaction tw2 Disposition: 11:18 Co-signature as Attending Physician, Rigoberto Carmichael MD. rn Disposition: 09/01/19 10:09 Discharged to Home. Impression: Low back pain. - Condition is Stable. - Discharge Instructions: Back Pain, Adult, Musculoskeletal Pain, Back Exercises, [id number]. - Medication Reconciliation Form, Thank You Letter form. - Follow up: Private Physician; When: 2 - 3 days; Reason: Recheck today's complaints, Continuance of care, Re-evaluation by your physician. - Problem is chronic. - Symptoms have improved. Signatures: Rigoberto Carmichael MD MD rn Calderon, Audri, RN RN aa5 Eliezer Brenner PA PA jr8 Mayra Dailey RN RN tw2 Corrections: (The following items were deleted from the chart) 10:16 10:09 09/01/2019 10:09 Discharged to Home. Impression: Low back pain. Condition is tw2 Stable. Forms are Medication Reconciliation Form, Thank You Letter, Antibiotic Education, Prescription Opioid Use. Follow up: Private Physician; When: 2 - 3 days; Reason: Recheck today's complaints, Continuance of care, Re-evaluation by your physician. Problem is chronic. Symptoms have improved. jr8
[2019-09-01 10:21] VITALS: TEMP 98.6
[2019-09-01 10:22] VITALS: O2SAT 100
[2019-09-01 10:24] VITALS: BP 161/85
== END 2019-09-01 10:16 | disposition home or self-care (01) ==
LOC: ER 08:20
DX: M54.5 Low back pain (principal); I10 Essential (primary) hypertension; E78.5 Hyperlipidemia, unspecified; G89.29 Other chronic pain; Z91.09 Other allergy status, other than to drugs and biological substances
CPT/HCPCS: 96365; 96375; 99283; J1100; J2405; J2800

== ENCOUNTER 2019-10-05 17:50 | Emergency (ER) | payer BC ==
[2019-10-05] MEDS ORDERED: ETOMIDATE 20 MG/10 ML VIAL IV ONE (17:51)
[2019-10-05] MEDS ORDERED: SUCCINYLCHOLINE 20 MG/ML (10 ML) IV ONE (17:51)
[2019-10-05 19:02] LABS: Protime INR 2.79
[2019-10-05 19:15] LABS: Absolute Lymphocytes (CBC) 1.2 K/uL (0.7-4.9); Basophils % 0.2 % (0-1.3); Hematocrit 27.5 % (36.0-45.0); Lymphocytes % 3.6 % (15.3-44.8); MPV 8.1 fL (7.6-11.3); RBC Red Blood Cell Count 3.51 M/uL (3.86-4.86)
[2019-10-05] MEDS ORDERED: NA CHLORIDE 0.9% 1,000 ML ONE ×2 (19:18→22:45)
[2019-10-05 19:25] LABS: Arterial Blood Carboxyhemoglob 1.3 % (0-1.5); Blood Gas Oxyhemoglobin 82.3 % (94-97); Blood O2 Saturation 84.2 % (92-98.5)
[2019-10-05 19:55] LABS: Albumin 3.1 g/dL (3.4-5.0); Bilirubin Direct 0.8 mg/dL (0-0.2); Bilirubin Total 1.3 mg/dL (0.2-1.0); Magnesium 2.5 mg/dL (1.8-2.4); Potassium 4.8 mmol/L (3.5-5.1); Protein, Total 6.7 g/dL (6.4-8.2)
[2019-10-05] MEDS ORDERED: NA CHLORIDE 0.9% 250 ML ONE ×2 (19:55→21:26)
[2019-10-05] MEDS ORDERED: VANCOMYCIN 1 GM/VIAL ONE (19:55)
[2019-10-05] MEDS ORDERED: CEFEPIME 1 GM/100 ML BAG IV ONE (19:56)
[2019-10-05 19:58] LABS: Troponin (Emerg Dept Use Only) 1.27 ng/mL (0.0-0.045)
--- NOTE | 2019-10-05 20:08 | RAD REPORT ---
EXAM DESCRIPTION: RAD - Chest Single View - 10/05/2019 7:53 pm CLINICAL HISTORY: ams Chest pain. COMPARISON: Chest Single View dated 02/11/2019; Chest Single View dated 02/10/2019; Chest Pa And Lat ( 2 Views) dated 11/03/2018; Chest Pa And Lat (2 Views) dated 11/01/2018 FINDINGS: Portable technique limits examination quality. Moderate bilateral pulmonary opacities are present, may represent pneumonia or pulmonary edema. The h eart is upper limit of normal in size. Hardware is present in the left clavicle with adjacent skin st aples.
--- NOTE | 2019-10-05 20:12 | RAD REPORT ---
EXAM DESCRIPTION: CT - Head Brain Wo Cont - 10/05/2019 8:01 pm CLINICAL HISTORY: ams Headache, drowsiness COMPARISON: Head Brain Wo Cont dated 08/21/2019; Head angio dated 08/21/2019 TECHNIQUE: All CT scans are performed using dose optimization technique as appropriate and may inclu de automated exposure control or mA/KV adjustment according to patient size. FINDINGS: No intracranial hemorrhage, hydrocephalus or extra-axial fluid collection.No areas of brai n edema or evidence of midline shift. The paranasal sinuses and mastoids are clear. The calvarium is intact. IMPRESSION: No acute intracranial abnormality.
[2019-10-05] MEDS ORDERED: NA CHLORIDE 0.9% 500 ML ONE ×2 (20:15→21:50)
--- NOTE | 2019-10-05 20:28 | RAD REPORT ---
EXAM DESCRIPTION: CT - Chest Abd Pelvis Wo Con - 10/05/2019 8:16 pm CLINICAL HISTORY: Chest and abdomen pain. ams, elevated lfts COMPARISON: Chest For Pe Angio dated 09/25/2017; Stone Protocol dated 05/26/2019 TECHNIQUE: A limited noncontrast study was performed. All CT scans are performed using dose optimization technique as appropriate and may include automated exposure control or mA/KV adjustment according to patient size. FINDINGS: Moderate bilateral pulmonary opacities are present, slightly greater on the right, likely representing pulmonary edema or pneumonia.Cardiac size is mildly prominent.No pleural or pericardial effusion.No intrathoracic adenopathy.Moderate hiatal hernia is seen with mild dilatation of the esoph eddie. Mild free fluid is seen abdomen pelvis. Liver, spleen pancreas, adrenal glands and kidneys within nor mal limits limited noncontrast study. Cholelithiasis is suspected. Moderate stool is present in the colon. No evidence of a bowel obstruction. No evidence of intraabdom inal pelvic abscess. No pathologic lymphadenopathy in the abdomen or pelvis. Postsurgical changes are seen in the region of the left clavicle with skin christen. IMPRESSION: Moderate bilateral pulmonary opacities may represent pneumonia or pulmonary edema. Trace free fluid abdomen pelvis is seen with moderate fecal retention is evident.
--- NOTE | 2019-10-05 20:47 | RAD REPORT ---
EXAM DESCRIPTION: US - Abdomen Exam Limited - 10/05/2019 8:38 pm CLINICAL HISTORY: elevated lft COMPARISON: Abdomen Exam Limited dated 05/26/2019 FINDINGS: The gallbladder demonstrates no gallstones. Mild pericholecystic fluid and gallbladder wal l thickening is seen. The common bile duct is mildly prominent measuring 7 mm. The liver demonstrates no findings of intrahepatic biliary dilatation. IMPRESSION: The gallbladder demonstrates wall thickening and pericholecystic fluid without visible s tones. This is a nonspecific finding but may be related to hepatic inflammation, acalculous cholecys titis or hypoalbuminemia.
[2019-10-05 21:14] LABS: Urine Blood 2+ (NEG); Urine Glucose NEGATIVE (NEG); Urine Protein 2+ (NEG); Urine pH 6.5 (5.0-7.0)
[2019-10-05 21:17] LABS: Barbiturates NEGATIVE (NEGATIVE); Benzodiazepines NEGATIVE (NEGATIVE); Cocaine NEGATIVE (NEGATIVE); METHAMPHETAM NEGATIVE (NEGATIVE); Methadone NEGATIVE (NEGATIVE); Opiates POSITIVE (NEGATIVE); Phencyclidine NEGATIVE (NEGATIVE); THC Cannibis NEGATIVE (NEGATIVE)
[2019-10-05] MEDS ORDERED: Acetylcysteine 6000mg/30mL IV ONE ×3 (21:23→21:50)
[2019-10-05 21:38] LABS: Anisocytosis SLIGHT; Blood Morphology Comment NOTED (NOT SEEN); Platelet Estimate ADEQ; Polychromasia SLIGHT; Smudge Cells PRESENT
[2019-10-05 21:39] LABS: Dohle Bodies PRESENT
[2019-10-05] MEDS ORDERED: FENTANYL CITR 100 MCG/2 ML ONE (21:49)
--- NOTE | 2019-10-05 22:21 | ER ---
Nurse's Notes [facility] Name: Pratibha Jennings Age: 54 yrs Sex: Female : 1965 Arrival Date: 10/05/2019 Time: 17:52 Bed 4 Private MD: Diagnosis: Pneumonia;Altered Mental Status;Acute Kidney Injury;Hepatic Failure;Acute Cholecysitis Presentation: 10/05 18:11 Presenting complaint: states: She had surgery on Tuesday but yesterday and aj1 today she's staying in bed, she isn't eating a drinking. states that she has been unable to find her pain medication for a few days, so he thinks she might be having withdrawals. She has been acting confused, shaking, complaining of chills. Patient appears drowsy, opens eyes to tactile stimulation only, tachypneic. Patient appears pale, confused. Patient's reports that this has been going on for 2 days now. Transition of care: patient was not received from another setting of care. Onset of symptoms was October 05, 2019. Risk Assessment: Do you want to hurt yourself or someone else? Patient reports no desire to harm self or others. Initial Sepsis Screen: Does the patient meet any 2 criteria? RR > 20 per min. Altered Mental Status. Yes Does the patient have a suspected source of infection? No. Patient's initial sepsis screen is negative. Care prior to arrival: None. 18:11 Method Of Arrival: Wheelchair aj1 18:11 Acuity: NUSRAT 2 aj1 Triage Assessment: 18:40 General: Appears distressed, uncomfortable, ill, well groomed, Behavior is drowsy. aa5 Pain: Denies pain. Neuro: Oriented to person, place, Speech slow, garbled. Cardiovascular: Patient's skin is warm and dry. Respiratory: Airway is patent Respiratory effort is even, Respiratory pattern is regular, symmetrical, tachypnea. Derm: Skin is dry, Skin is pale. Historical: - Allergies: 18:40 Iodine; topical; aa5 - Home Meds: 18:40 Ambien 5 mg Oral tab 1 tab once daily [Active]; amlodipine oral [Active]; atorvastatin aa5 Oral [Active]; Fluoxetine Oral [Active]; gabapentin 600 mg Oral tab 1 tab daily [Active]; Hydroxyzine Oral [Active]; lidocaine patch [Active]; morphine 15 mg Oral tab 1 tab every 4 hours [Active]; Neurontin 600 mg Oral tab 1 tab daily [Active]; oxycodone-acetaminophen 10-650 mg Oral tab 1 tab every 6 hours [Active]; Propranolol Oral [Active]; Protonix Oral [Active]; tizanidine 4 mg Oral cap 1 cap [Active]; Zofran Oral [Active]; - PMHx: 18:40 ADD/ADHD; Back pain; Chronic pain; Degenerative disc disease; Hyperlipidemia; aa5 Hypertension; - Immunization history:: Flu vaccine is not up to date. - Social history:: Smoking status: Patient uses tobacco products, smokes one-half pack cigarettes per day. - Ebola Screening: : Patient denies travel to an Ebola-affected area in the 21 days before illness onset. Screenin:00 Abuse screen: Denies threats or abuse. Nutritional screening: No deficits noted. la1 Tuberculosis screening: No symptoms or risk factors identified. Fall Risk None identified. Assessment: 18:40 Reassessment: Patient placed on O2 \T\ 4L nc, O2 sat increased to 100% on nc. Mariann Simmons aa5 PA at bedside to evaluate patient. 18:59 General: Appears uncomfortable, Behavior is drowsy, restless. Neuro: Level of la1 Consciousness is awake, obeys commands, listless, Procurement Officer are equal bilaterally Speech is normal, Facial symmetry appears normal, Pupils are PERRLA, dilated. Cardiovascular: Capillary refill < 3 seconds is brisk in bilateral fingers Patient's skin is warm and dry. Cardiovascular:. Respiratory: Airway is patent Respiratory effort is even, unlabored, Respiratory pattern is regular, symmetrical, Breath sounds are coarse bilaterally. the patient has mild shortness of breath. GI: Abdomen is flat, non-distended, Bowel sounds present X 4 quads. Abd is soft and non tender X 4 quads. : No signs and/or symptoms were reported regarding the genitourinary system. 20:00 Reassessment: pt to radiology for CT and US. la1 20:30 Reassessment: returned from radiology\E\. la1 20:30 Reassessment: Pt restless, able to open eyes on command and answer questions when la1 asked. Not tolerating venti mask so placed on nasal cannula, maintaining sats of 94-95% on NC at 4LPM. 21:30 Reassessment:. Cardiovascular: Heart tones S1 S2 present Capillary refill < 3 seconds. la1 Respiratory: Airway is patent Respiratory effort is even, labored, Respiratory pattern is regular, symmetrical, Breath sounds are coarse bilaterally. the patient has moderate shortness of breath. 21:55 Reassessment:. General: Appears uncomfortable, Behavior is drowsy, restless. Neuro: la1 Level of Consciousness is awake, obeys commands. Cardiovascular: Patient's skin is warm and dry. Respiratory: Airway is patent Respiratory effort is even, labored, Respiratory pattern is regular, tachypnea. GI: No signs and/or symptoms were reported involving the gastrointestinal system. : No signs and/or symptoms were reported regarding the genitourinary system. 22:39 Reassessment: Pt states she is having a hard time breathing, states she is feeling la1 worse. Only able to speak one to two word sentences and tachypneic. ERP notified, decision to intubate made in due to respiratory distress and altered mental status. 22:58 Reassessment: Successful intubation with ET tube 21 \T\ the lip per Dr. Michelle. jb4 23:06 Reassessment: RT reports ET tube is 22 \T\ the lip. ET Tube secured in place. Propofol jb4 adjusted to 20 mcg/min per protocol due to patient becoming more agitated. 23:07 Reassessment: 20mcg/min has no effect on patient. Pt becoming more agitated. Is biting jb4 ET tube. Rt unable to able bite block. Propofol adjusted to 30mcg/min. 23:09 Reassessment: PT still not fully sedated. Continues to bite ET tube. RT still unable to jb4 apply bite block. 30mcg bolus of propofol administered per Dr. Michelle. 23:12 Reassessment: Bite block applied per RT. Pt is still no sedated. Propofol increased to jb4 35mcg/min. 23:39 Reassessment: PT appears more sedated. Heart rate has come down along with blood jb4 pressure. Does not appear agitated. General:. Respiratory: Airway via oral intubation Respiratory effort is even, unlabored, Respiratory pattern is regular, symmetrical, tachypnea. GI: Oral gastric tube in place, clamped. to suction. 10/06 00:30 Reassessment: No changes from previously documented assessment. Patient and/or family jb4 updated on plan of care and expected duration. Pain level reassessed. 01:36 Reassessment: Patient and/or family updated on plan of care and expected duration. Pain jb4 level reassessed. PT transferred to receiving facility via EMS. Neuro: Level of Consciousness is PT is sedated.. Respiratory: Airway is patent Respiratory effort is even, unlabored, Respiratory pattern is regular, symmetrical, Breath sounds are coarse bilaterally. Vital Signs: 10/05 18:40 BP 173 / 87; Pulse 96; Resp 28; Temp 98.3; Pulse Ox 85% on R/A; Weight 49.9 kg (R); aa5 Height 5 ft. 4 in. (162.56 cm) (R); Pain 0/10; 19:31 BP 156 / 63; Pulse 87; Resp 24; Pulse Ox 98% on R/A; la1 20:43 BP 180 / 100; Pulse 106; Resp 26; Pulse Ox 91% on 4 lpm NC; la1 21:34 BP 184 / 81; Pulse 99; Resp 22; Temp 99.1; Pulse Ox 96% on 4 lpm NC; la1 21:52 BP 198 / 92; Pulse 98; Resp 25; Temp 99.5; Pulse Ox 94% on 4 lpm NC; la1 22:35 BP 200 / 117; Pulse 107; Resp 30; Pulse Ox 84% on R/A; jb4 22:37 Pulse Ox 90% on 4 lpm NC; jb4 22:38 Resp 30; Pulse Ox 100% on 100% Non-rebreather mask; jb4 22:40 BP 214 / 125; Pulse 108; Resp 30; Pulse Ox 100% on 100% Non-rebreather mask; jb4 22:41 BP 215 / 110; Pulse 105; Resp 36; Pulse Ox 100% on Non-rebreather mask; la1 22:45 BP 185 / 108; Pulse 109; Resp 30; Pulse Ox 100% on Non-rebreather mask; jb4 23:00 BP 226 / 97; Pulse 120; Resp 15; Pulse Ox 98% on 50% FiO2 ETT vent; jb4 23:09 BP 196 / 118; Pulse 137; Resp 23; Pulse Ox 93% on ETT vent; jb4 23:13 BP 168 / 115; Pulse 131; Resp 26; Pulse Ox 99% on ETT vent; jb4 23:39 BP 142 / 95; Pulse 105; Resp 25; Temp 99.9(C); Pulse Ox 100% on ETT vent; la1 10/06 00:35 BP 150 / 91; Pulse 108; Resp 25; Pulse Ox 97% on 50% FiO2 ETT vent; jb4 01:20 BP 143 / 98; Pulse 101; Resp 23; Temp 99.4(C); Pulse Ox 97% on 50% FiO2 ETT vent; jb4 10/05 18:40 Body Mass Index 18.88 (49.90 kg, 162.56 cm) aa5 ED Course: 10/05 17:52 Patient arrived in ED. cf2 18:11 Arm band placed on Patient Patient triaged in ER bed 5. aa5 18:16 Triage completed. aj1 18:24 Humphrey Simmons PA is PHCP. [facility] 18:24 Baldemar Browne MD is Attending Physician. [facility] 18:55 Alejandro Bryan RN is Primary Nurse. la1 19:00 Patient has correct armband on for positive identification. la1 19:00 Inserted saline lock: 22 gauge in right antecubital area, using aseptic technique. la1 Blood collected. 19:05 Radiology exam delayed due to NURSE NEEDED PT FOR BLOOD DRAW; WILL CALL WHEN READY. nj 19:20 Notified Nurse Practitioner and/or Physician Evening Sitter of a critical lab result(s), bb WBCs of 33.8. Humphrey DOWLING notified. 19:53 XRAY Chest (1 view) In Process Unspecified. EDMS 20:01 CT Head Brain wo Cont In Process Unspecified. EDMS 20:17 CT Chest Abdomen Pelvis W/O Contrast In Process Unspecified. EDMS 20:39 US Abdomen Limited In Process Unspecified. EDMS 20:45 Messer cath inserted, using sterile technique, 16 Fr., by me, balloon inflated, to bb gravity drainage, urine specimen collected. 22:58 Assisted provider with intubation using 7.5 mm ETT via oral route. ET tube secured at jb4 22cm at the lips. Set up intubation tray. Intubated by Abran Michelle MD Placement verified by CXR, CO2 detector w/ + color change, auscultating bilateral breath sounds, Patient tolerated well. 23:38 Chest Single View XRAY In Process Unspecified. EDMS 10/06 00:08 NGT: inserted 12 Fr. other OG by Dr. Michelle verified placement of air over stomach, la1 Placement verified by X-ray, Patient tolerated well. 01:40 Patient transferred, IV remains in place. jb4 Administered Medications: 10/05 19:26 Drug: NS 0.9% 1000 ml Route: IV; Rate: 1 bolus; Site: right antecubital; la1 19:53 Not Given (Other Intervention Used): Rocephin 1 grams IV at calculated rate once; Given la1 slow IV push per pharmacy instructions 20:04 CANCELLED (Other Intervention Used): vancoMYCIN 1 grams IVPB once over 2 hrs la1 20:04 CANCELLED (Other Intervention Used): Cefepime 1 grams IVPB at 200 ml/hr once over 30 la1 mins; (mix in NS 100 mL) 20:07 CANCELLED (other dose used): NS 0.9% (20 ml/kg) 20 ml/kg IV at 1 bolus once [facility] 20:43 Drug: Cefepime 1 grams Route: IVPB; Rate: 200 ml/hr; Infused Over: 30 mins; Site: right la1 antecubital; 21:13 Follow up: Response: No adverse reaction; IV Status: Completed infusion [facility] 21:11 Drug: vancoMYCIN 1 grams Route: IVPB; Infused Over: 2 hrs; Site: right jugular; la1 22:43 Follow up: Response: No adverse reaction; IV Status: Completed infusion [facility] 21:11 Drug: NS 0.9% 500 ml Route: IV; Rate: bolus; Site: right jugular; la1 21:35 Not Given (Other Intervention Used): MucoMYST - Acetylcysteine 50 mg/kg IV at la1 calculated rate once; not to exceed 5.5 grams, administer over 4 hours 21:36 Drug: MucoMYST - Acetylcysteine 150 mg/kg Route: IV; Rate: calculated rate; Site: right la1 antecubital; 23:40 Follow up: IV Status: Completed infusion la1 22:09 Drug: fentaNYL (PF) 75 mcg Route: IVP; Site: right antecubital; la1 23:40 Follow up: Response: No adverse reaction la1 22:54 Drug: Etomidate 20 mg {Note: Administered by Blanca Shipley RN.} Route: IVP; Site: jb4 right jugular; 23:39 Follow up: Response: No adverse reaction jb4 22:55 Drug: Succinylcholine 120 mg {Note: Administered by Blanca Shipley RN.} Route: IVP; jb4 Site: right jugular; 23:39 Follow up: Response: No adverse reaction jb4 23:03 Drug: Propofol 5 mcg/kg/min {Note: started at 15mcg/min by ALEJANDRO VILLATORO RN.} Route: IV; jb4 Rate: calculated rate; Site: right jugular; 23:39 Follow up: Response: No adverse reaction; IV Status: Infusion continued upon transfer jb4 10/06 01:32 Drug: fentaNYL (PF) 100 mcg Route: IVP; Site: right antecubital; jb4 01:33 Follow up: Response: Medication administered at discharge. jb4 Output: 01:41 Urine: 425ml (Messer); Total: 425ml. jb4 Outcome: 10/05 22:19 ER care complete, transfer ordered by MD. wilhelm 10/06 01:40 Transferred by ground EMS to [facility], Transfer form completed. jb4 X-rays sent w/ patient. Condition: stable Discharge instructions given to family, Instructed on the need for transfer, Demonstrated understanding of instructions. 01:41 Patient left the ED. jb4 Signatures: Dispatcher [employer] EDMS Dionna Chinchilla RN RN aj1 Humphrey Simmons PA PA [facility] Blanca Shipley RN RN bb Calderon, Audri, RN RN aa5 Alejandro Bryan RN RN la1 Bryson, James, RN RN jb4 Joaquin Peck Celesta cf2 Corrections: (The following items were deleted from the chart) 10/05 18:39 18:11 Presenting complaint: states: She had surgery on Tuesday but yesterday aa5 and today she's staying in bed, she isn't eating a drinking. states that she has been unable to find her pain medication for a few days, so he thinks she might be having withdrawals. She has been acting confused, shaking, complaining of chills. aj1 18:55 18:43 Arm band placed on Patient Patient triaged in ER bed 5 aa5 aa5 19:35 18:11 Initial Sepsis Screen: Does the patient meet any 2 criteria? No. Patient's aj1 initial sepsis screen is negative. Does the patient have a suspected source of infection? No. Patient's initial sepsis screen is negative. aj1 21:52 19:31 BP 156 / 63; Pulse 87bpm; Resp 16bpm; Pulse Ox 98% RA; la1 la1 21:55 18:59 Respiratory: Airway is patent Respiratory effort is even, unlabored, Respiratory la1 pattern is regular, symmetrical, Breath sounds are clear bilaterally. la1 23:38 22:55 Succinylcholine 120 mg IVP in right jugular jb4 jb4 23:39 22:54 Etomidate 20 mg IVP in right jugular jb4 jb4 23:40 23:39 BP 142 / 95; Pulse 105bpm; Pulse Ox 100% ET / Ventilator; Temp 99.9F Catheter; la1la1 10/06 01:41 01:20 BP 143 / 98; Pulse 101bpm; Resp 23bpm; Pulse Ox 97% FiO2 50% vent; jb4 jb4
--- NOTE | 2019-10-05 22:22 | EDPHYS ---
Physician Documentation [facility] Name: Pratibha Jennings Age: 54 yrs Sex: Female : 1965 Arrival Date: 10/05/2019 Time: 17:52 Bed 4 Private MD: ED Physician Baldemar Browne HPI: 10/05 18:26 This 54 yrs old Female presents to ER via Wheelchair with complaints of [facility] Surgical Pain, CHILLS, Doesn't Feel Right. 18:26 The patient presents with confusion. Onset: The symptoms/episode began/occurred jmm gradually, 1 day(s) ago. Possible causes: unknown. Associated signs and symptoms: Pertinent positives: shortness of breath. This is a 54 year old female with a history of chronic pain, htn that presents to the ED with confusion according to the along with difficulty breathing. Patient is 3 days s/p clavicular repair. states her oxycodone prescription was increased prior to surgery. states the patient stated she was unable to find her pain medication yesterday. . Historical: - Allergies: 18:40 Iodine; topical; aa5 - Home Meds: 18:40 Ambien 5 mg Oral tab 1 tab once daily [Active]; amlodipine oral [Active]; atorvastatin aa5 Oral [Active]; Fluoxetine Oral [Active]; gabapentin 600 mg Oral tab 1 tab daily [Active]; Hydroxyzine Oral [Active]; lidocaine patch [Active]; morphine 15 mg Oral tab 1 tab every 4 hours [Active]; Neurontin 600 mg Oral tab 1 tab daily [Active]; oxycodone-acetaminophen 10-650 mg Oral tab 1 tab every 6 hours [Active]; Propranolol Oral [Active]; Protonix Oral [Active]; tizanidine 4 mg Oral cap 1 cap [Active]; Zofran Oral [Active]; - PMHx: 18:40 ADD/ADHD; Back pain; Chronic pain; Degenerative disc disease; Hyperlipidemia; aa5 Hypertension; - Immunization history:: Flu vaccine is not up to date. - Social history:: Smoking status: Patient uses tobacco products, smokes one-half pack cigarettes per day. - Ebola Screening: : Patient denies travel to an Ebola-affected area in the 21 days before illness onset. ROS: 18:26 Cardiovascular: Negative for chest pain, palpitations, and edema. jmm 18:26 Abdomen/GI: Negative for abdominal pain, nausea, vomiting, diarrhea, and constipation. 18:26 Constitutional: Positive for body aches, chills. 18:26 Respiratory: Positive for shortness of breath. 18:26 Neuro: Positive for altered mental status. 18:26 All other systems are negative. Exam: 18:26 Head/Face: atraumatic. Eyes: EOMI, no conjunctival erythema appreciated ENT: Moist jm Mucus Membranes Neck: Trachea midline, Supple Chest/axilla: Normal chest wall appearance and motion. 18:26 Abdomen/GI: Non distended, soft Back: Normal ROM Skin: General appearance color normal MS/ Extremity: Moves all extremities, no obvious deformities appreciated, no edema noted to the lower extremities 18:26 Constitutional: The patient appears obviously ill. 18:26 Cardiovascular: Rate: tachycardic, Rhythm: regular. 18:26 Respiratory: moderate respiratory distress is noted, Respirations: labored breathing, that is mild, Breath sounds: are clear throughout. 18:26 Neuro: Orientation: is normal, Mentation: able to follow commands, confused. Vital Signs: 18:40 BP 173 / 87; Pulse 96; Resp 28; Temp 98.3; Pulse Ox 85% on R/A; Weight 49.9 kg (R); aa5 Height 5 ft. 4 in. (162.56 cm) (R); Pain 0/10; 19:31 BP 156 / 63; Pulse 87; Resp 24; Pulse Ox 98% on R/A; la1 20:43 BP 180 / 100; Pulse 106; Resp 26; Pulse Ox 91% on 4 lpm NC; la1 21:34 BP 184 / 81; Pulse 99; Resp 22; Temp 99.1; Pulse Ox 96% on 4 lpm NC; la1 21:52 BP 198 / 92; Pulse 98; Resp 25; Temp 99.5; Pulse Ox 94% on 4 lpm NC; la1 22:35 BP 200 / 117; Pulse 107; Resp 30; Pulse Ox 84% on R/A; jb4 22:37 Pulse Ox 90% on 4 lpm NC; jb4 22:38 Resp 30; Pulse Ox 100% on 100% Non-rebreather mask; jb4 22:40 BP 214 / 125; Pulse 108; Resp 30; Pulse Ox 100% on 100% Non-rebreather mask; jb4 22:41 BP 215 / 110; Pulse 105; Resp 36; Pulse Ox 100% on Non-rebreather mask; la1 22:45 BP 185 / 108; Pulse 109; Resp 30; Pulse Ox 100% on Non-rebreather mask; jb4 23:00 BP 226 / 97; Pulse 120; Resp 15; Pulse Ox 98% on 50% FiO2 ETT vent; jb4 23:09 BP 196 / 118; Pulse 137; Resp 23; Pulse Ox 93% on ETT vent; jb4 23:13 BP 168 / 115; Pulse 131; Resp 26; Pulse Ox 99% on ETT vent; jb4 23:39 BP 142 / 95; Pulse 105; Resp 25; Temp 99.9(C); Pulse Ox 100% on ETT vent; la1 10/06 00:35 BP 150 / 91; Pulse 108; Resp 25; Pulse Ox 97% on 50% FiO2 ETT vent; jb4 01:20 BP 143 / 98; Pulse 101; Resp 23; Temp 99.4(C); Pulse Ox 97% on 50% FiO2 ETT vent; 4 10/05 18:40 Body Mass Index 18.88 (49.90 kg, 162.56 cm) aa5 Procedures: 10/05 21:01 Peripheral line: by aseptic technique a peripheral line was placed in the right cp external jugular vein. MDM: 18:26 Patient medically screened. samira 22:17 Data reviewed: vital signs, nurses notes. Counseling: I had a detailed discussion with [facility] the patient and/or guardian regarding: the historical points, exam findings, and any diagnostic results supporting the discharge/admit diagnosis, lab results, radiology results, the need to transfer to another facility. ED course: I discussed the patient with Dr. Keene whom accepted transfer. . 10/05 18:39 Order name: Basic Metabolic Panel; Complete Time: 20:06 [facility] 10/05 18:39 Order name: CBC with Diff; Complete Time: 21:47 [facility] 10/05 18:39 Order name: LFT's; Complete Time: 20:06 [facility] 10/05 18:39 Order name: Magnesium; Complete Time: 20:06 [facility] 10/05 18:39 Order name: NT PRO-BNP; Complete Time: 20:06 [facility] 10/05 18:39 Order name: PT-INR; Complete Time: 19:23 [facility] 10/05 18:39 Order name: Troponin (emerg Dept Use Only); Complete Time: 20:06 [facility] 10/05 18:39 Order name: UDS; Complete Time: 21:30 [facility] 10/05 18:39 Order name: ABG; Complete Time: 20:06 [facility] 10/05 18:40 Order name: Lactate; Complete Time: 20:06 [facility] 10/05 18:40 Order name: Procalcitonin; Complete Time: 19:28 [facility] 10/05 18:40 Order name: Blood Culture Adult (2) [facility] 10/05 19:59 Order name: AMMONIA; Complete Time: 21:30 [facility] 10/05 20:10 Order name: Lipase; Complete Time: 20:45 [facility] 10/05 18:39 Order name: XRAY Chest (1 view); Complete Time: 20:46 [facility] 10/05 18:59 Order name: CT Head Brain wo Cont; Complete Time: 20:47 [facility] 10/05 20:06 Order name: CT Chest Abdomen Pelvis W/O Contrast; Complete Time: 20:47 [facility] 10/05 20:10 Order name: US Abdomen Limited; Complete Time: 21:07 [facility] 10/05 21:07 Order name: Tylenol Level; Complete Time: 21:47 [facility] 10/05 21:09 Order name: Urine Dipstick--Ancillary (enter results); Complete Time: 21:30 ar5 10/05 21:38 Order name: Manual Differential; Complete Time: 21:47 [facility] 10/05 23:00 Order name: Chest Single View XRAY la1 10/05 18:39 Order name: EKG; Complete Time: 18:40 [facility] 10/05 18:39 Order name: Cardiac monitoring; Complete Time: 18:51 [facility] 10/05 18:39 Order name: EKG - Nurse/Tech; Complete Time: 18:51 [facility] 10/05 18:39 Order name: IV Saline Lock; Complete Time: 18:51 [facility] 10/05 18:39 Order name: Labs collected and sent; Complete Time: 18:51 [facility] 10/05 18:39 Order name: O2 Per Protocol; Complete Time: 18:51 [facility] 10/05 18:39 Order name: O2 Sat Monitoring; Complete Time: 18:51 [facility] 10/05 20:02 Order name: Rectal Temp; Complete Time: 20:55 jmm Administered Medications: 19:26 Drug: NS 0.9% 1000 ml Route: IV; Rate: 1 bolus; Site: right antecubital; la1 19:53 Not Given (Other Intervention Used): Rocephin 1 grams IV at calculated rate once; Given la1 slow IV push per pharmacy instructions 20:04 CANCELLED (Other Intervention Used): vancoMYCIN 1 grams IVPB once over 2 hrs la1 20:04 CANCELLED (Other Intervention Used): Cefepime 1 grams IVPB at 200 ml/hr once over 30 la1 mins; (mix in NS 100 mL) 20:07 CANCELLED (other dose used): NS 0.9% (20 ml/kg) 20 ml/kg IV at 1 bolus once [facility] 20:43 Drug: Cefepime 1 grams Route: IVPB; Rate: 200 ml/hr; Infused Over: 30 mins; Site: right la1 antecubital; 21:13 Follow up: Response: No adverse reaction; IV Status: Completed infusion [facility] 21:11 Drug: vancoMYCIN 1 grams Route: IVPB; Infused Over: 2 hrs; Site: right jugular; la1 22:43 Follow up: Response: No adverse reaction; IV Status: Completed infusion 4 21:11 Drug: NS 0.9% 500 ml Route: IV; Rate: bolus; Site: right jugular; la1 21:35 Not Given (Other Intervention Used): MucoMYST - Acetylcysteine 50 mg/kg IV at la1 calculated rate once; not to exceed 5.5 grams, administer over 4 hours 21:36 Drug: MucoMYST - Acetylcysteine 150 mg/kg Route: IV; Rate: calculated rate; Site: right la1 antecubital; 23:40 Follow up: IV Status: Completed infusion la1 22:09 Drug: fentaNYL (PF) 75 mcg Route: IVP; Site: right antecubital; la1 23:40 Follow up: Response: No adverse reaction la1 22:54 Drug: Etomidate 20 mg {Note: Administered by Blnaca Shipley RN.} Route: IVP; Site: jb4 right jugular; 23:39 Follow up: Response: No adverse reaction [facility] 22:55 Drug: Succinylcholine 120 mg {Note: Administered by Blanca Shipley RN.} Route: IVP; jb4 Site: right jugular; 23:39 Follow up: Response: No adverse reaction jb4 23:03 Drug: Propofol 5 mcg/kg/min {Note: started at 15mcg/min by ALEJANDRO VILLATORO RN.} Route: IV; jb4 Rate: calculated rate; Site: right jugular; 23:39 Follow up: Response: No adverse reaction; IV Status: Infusion continued upon transfer jb4 10/06 01:32 Drug: fentaNYL (PF) 100 mcg Route: IVP; Site: right antecubital; jb4 01:33 Follow up: Response: Medication administered at discharge. jb4 Disposition: 10/05 23:01 I agree with the assessment and plan of care. pt noted tachypneic with resp rate in the wa 30's. elevated BP. sats 92% on 4 L prior to transfer. Deemed unsafe for transport downtown. elected to control airway safely prior to transport. Note: placed on NRBM for 10 minutes to pre-oxygenate. RSI with succs and etomidate (see nursing charting for doses), Mac-3 blade. 7.5 ETT directly visualized through cords. bilateral BS auscultated. Pt's sats improved. placed on Vent. orders given. pt tolerated procedure well. CXR ordered. - Viviana SALINAS. Disposition: 10/05/19 22:19 Transfer ordered to [facility]. Diagnosis are Pneumonia, Altered Mental Status, Acute Kidney Injury, Hepatic Failure, Acute Cholecysitis. - Reason for transfer: Higher level of care. - Accepting physician is Jassi. - Condition is Critical. - Problem is new. - Symptoms are unchanged. Signatures: Dispatcher [employer] EDMS Baldemar Browne MD MD cha Mickail, Joel, PA PA jmm Ballard, Brenda, RN RN bb Calderon, Audri, RN RN aa5 Alejandro Bryan RN RN la1 Baldemar Norman PA PA cp Bryson, James, RN RN jb4 Abran Michelle MD MD wa Corrections: (The following items were deleted from the chart) 20:04 19:53 vancoMYCIN 1 grams IVPB once over 2 hrs ordered. la1 la1 20:04 19:53 Cefepime 1 grams IVPB at 200 ml/hr once over 30 mins; (mix in NS 100 mL) ordered. la1 la1 20:07 20:07 NS 0.9% (20 ml/kg) 20 ml/kg IV at 1 bolus once ordered. melonie wilhelm 10/06 01:41 10/05 22:19 10/05/2019 22:19 Transfer ordered to [facility]. jb4 Diagnosis is Pneumonia; Altered Mental Status; Acute Kidney Injury; Hepatic Failure; Acute Cholecysitis. Reason for transfer: Higher level of care. Accepting physician is Jassi. Condition is Critical. Problem is new. Symptoms are unchanged. melonie
[2019-10-05] MEDS ORDERED: PROPOFOL 1,000 MG/100 ML VIAL IV ONE (22:27)
[2019-10-05] MEDS ORDERED: RSI MEDICATION KIT IV ONE (22:27)
[2019-10-05] MEDS ORDERED: ROCURONIUM 50 MG/5 ML VIAL IV ONE (22:30)
[2019-10-06] MEDS ORDERED: FENTANYL CITR 100 MCG/2 ML ONE (01:28)
[2019-10-06] MEDS ORDERED: PROPOFOL 1,000 MG/100 ML VIAL IV ONE (01:44)
[2019-10-06 02:21] VITALS: O2SAT 97
[2019-10-06 02:23] VITALS: BP 143/98; TEMP 99.4
--- NOTE | 2019-10-06 09:04 | RAD REPORT ---
EXAM DESCRIPTION: RAD - Chest Single View - 10/05/2019 11:41 pm CLINICAL HISTORY: Intubation, respiratory distress COMPARISON: October 05 TECHNIQUE: AP portable chest image was obtained 2336 hours . FINDINGS: Endotracheal tube has been placed with the tip mid aortic arch level. NG tube has been placed with tip in the distal esophagus. Interstitial and alveolar opacities are fra ctionally increased from the prior day study. Heart size is normal range for supine portable imaging. IMPRESSION: ET tube in good position. NG tube tip is still in the distal esophagus. Interstitial and alveolar opacification slightly worse than prior day imaging.
--- NOTE | 2019-10-07 12:49 | EKG ---
Test Date: 2019-10-05 Test Time: 18:48:15 [employer] Operator: JAIMIE MEASUREMENT RESULTS: Intervals: Rate: 94 AR: 124 QRSD: 76 QT: 380 QTc: 475 Stendal: P: 72 AR: 124 QRS: 72 T: 76 INTERPRETIVE STATEMENTS: Normal sinus rhythm Nonspecific ST abnormality Abnormal ECG Compared to ECG 02/11/2019 08:15:52 ST (T wave) deviation now present Left posterior fascicular block no longer present Left ventricular hypertrophy no longer present T-wave abnormality no longer present Electronically Signed On 10-07-19 12:45:31 PHYSICIAN by Edil Grace
--- OUTSIDE RECORDS SUMMARY | 2019-10-08 05:56 | XMS REPORT ---
:1965 [facility] [address] [place] [address] [address] [place] [address] Care Team Providers Name Role Phone DOM RODRIGUEZ Unavailable Unavailable Payers Payer Name Policy Type Policy Number Effective Date Expiration Date Problems This patient has no known problems. Allergies, Adverse Reactions, Alerts Allergy Allergy Status Severity Reaction(s) Onset Inactive Treating Comments Name Type Date Date Clinician iodine DA Active [place] 2014-06 00:00:0 0 Medications This patient has no known medications. Results Test Description Test Time Test Comments Text Results Atomic Results Result Comments PROTHROMBIN TIME/INR 2019-10-08 05:32:00 Test Item Value Reference Range Comments PROTIME (BEAKER) (test ynap=080) 23.4 seconds 11.9-14.2 INR (BEAKER) (test oewg=730) 2.2 <=5.9 Effective 04/25/2019: PT Reference Range ChangeNew: 11.9-14.2 Previous: 11.7- 14.7RECOMMENDED COUMADIN/WARFARIN INR THERAPY RANGESSTANDARD DOSE: 2.0-3.0 Includes: PROPHYLAXIS for venous thrombosis, systemic embolization; TREATMENT for venous thrombosis and/or pulmonary embolus.HIGH RISK: Target INR is2.5-3.5 for patients wiht mechanical heart valves.[id number] 05:32:00 Test Item Value Reference Range Comments FIBRINOGEN LEVEL (BEAKER) (test rosr=912) 200 mg/dl 225-434 [id number] 05:32:00 Test Item Value Reference Range Comments PROTIME (BEAKER) (test kkhp=156) 23.4 seconds 11.9-14.2 INR (BEAKER) (test edgq=518) 2.2 <=5.9 PARTIAL THROMBOPLASTIN TIME (BEAKER) (test 35.0 seconds 22.5-36.0 kutl=582) Effective 04/25/2019: PT Reference Range ChangeNew: 11.9-14.2 Previous: 11.7- 14.7RECOMMENDED COUMADIN/WARFARIN INR THERAPY RANGESSTANDARD DOSE: 2.0-3.0 Includes: PROPHYLAXIS for venous thrombosis, systemic embolization; TREATMENT for venous thrombosis and/or pulmonary embolus.HIGH RISK: Target INR is2.5-3.5 for patients wiht mechanical heart valves.COMPREHENSIVE METABOLIC [id number] 05:24:00 Test Item Value Reference Range Comments TOTAL PROTEIN (BEAKER) 5.1 gm/dL 6.0-8.3 (test vjjk=806) ALBUMIN (BEAKER) (test 3.3 g/dL 3.5-5.0 lsen=6233) ALKALINE PHOSPHATASE 193 U/L 40-150 (BEAKER) (test klow=974) BILIRUBIN TOTAL (BEAKER) 2.8 mg/dL 0.2-1.2 (test maju=517) SODIUM (BEAKER) (test 139 meq/L 136-145 gmej=619) POTASSIUM (BEAKER) (test 3.6 meq/L 3.5-5.1 xiui=439) CHLORIDE (BEAKER) (test 106 meq/L 98-107 buhp=959) CO2 (BEAKER) (test 24 meq/L 22-29 dmwd=784) BLOOD UREA NITROGEN 21 mg/dL 7-21 (BEAKER) (test dxkm=259) CREATININE (BEAKER) (test 1.03 mg/dL 0.57-1.25 fkec=250) GLUCOSE RANDOM (BEAKER) 138 mg/dL 70-105 (test gopk=661) CALCIUM (BEAKER) (test 8.2 mg/dL 8.4-10.2 ciel=443) AST (SGOT) (BEAKER) (test 609 U/L 5-34 qkaw=210) ALT (SGPT) (BEAKER) (test 1911 U/L 6-55 ekyu=558) EGFR (BEAKER) (test 56 mL/min/1.73 sq m ESTIMATED GFR IS NOT cjtz=0120) ACCURATE CREATININE CLEARANCE IN PREDICTING GLOMERULAR FILTRATION RATE. ESTIMATED GFR IS NOT APPLICABLE FOR DIALYSIS PATIENTS. Specimen slightly ictericCBC W/PLT COUNT & AUTO [id number] 05:24 :00 Test Item Value Reference Range Comments WHITE BLOOD CELL COUNT (BEAKER) (test kgff=456) 17.8 K/ L 3.5-10.5 RED BLOOD CELL COUNT (BEAKER) (test tfac=636) 3.07 M/ L 3.93-5.22 HEMOGLOBIN (BEAKER) (test zddy=345) 8.1 GM/DL 11.2-15.7 HEMATOCRIT (BEAKER) (test jzyk=832) 23.3 % 34.1-44.9 MEAN CORPUSCULAR VOLUME (BEAKER) (test ymsr=069) 75.9 fL 79.4-94.8 MEAN CORPUSCULAR HEMOGLOBIN (BEAKER) (test 26.4 pg 25.6-32.2 vqht=735) MEAN CORPUSCULAR HEMOGLOBIN CONC (BEAKER) (test 34.8 GM/DL 32.2-35.5 loyn=974) RED CELL DISTRIBUTION WIDTH (BEAKER) (test 17.5 % 11.7-14.4 mufg=819) PLATELET COUNT (BEAKER) (test uixx=903) 92 K/CU MM 150-450 MEAN PLATELET VOLUME (BEAKER) (test nlgg=666) 10.6 fL 9.4-12.3 NUCLEATED RED BLOOD CELLS (BEAKER) (test 0 /100 WBC 0-0 yweo=349) NEUTROPHILS RELATIVE PERCENT (BEAKER) (test 83 % tevj=706) LYMPHOCYTES RELATIVE PERCENT (BEAKER) (test 8 % gskx=015) MONOCYTES RELATIVE PERCENT (BEAKER) (test 7 % ystx=815) EOSINOPHILS RELATIVE PERCENT (BEAKER) (test 1 % zpma=191) BASOPHILS RELATIVE PERCENT (BEAKER) (test 0 % lfjl=285) NEUTROPHILS ABSOLUTE COUNT (BEAKER) (test 14.77 K/ L 1.56-6.13 duca=787) LYMPHOCYTES ABSOLUTE COUNT (BEAKER) (test 1.42 K/ L 1.18-3.74 wodz=398) MONOCYTES ABSOLUTE COUNT (BEAKER) (test rtkl=674) 1.17 K/ L 0.24-0.36 EOSINOPHILS ABSOLUTE COUNT (BEAKER) (test 0.13 K/ L 0.04-0.36 gamp=614) BASOPHILS ABSOLUTE COUNT (BEAKER) (test orcc=597) 0.02 K/ L 0.01-0.08 IMMATURE GRANULOCYTES-RELATIVE PERCENT (BEAKER) 2 % 0-1 (test ewyk=0537) LACTIC ACID, [id number] 05:16:00 Test Item Value Reference Range Comments LACTATE BLOOD VENOUS (2) (BEAKER) (test 1.8 mmol/L 0.5-2.2 gwit=4003) [id number] 23:51:00 Test Item Value Reference Range Comments PHOSPHORUS (BEAKER) (test pymc=852) 4.4 mg/dL 2.3-4.7 [id number] 23:51:00 Test Item Value Reference Range Comments MAGNESIUM (BEAKER) (test yzno=872) 2.2 mg/dL 1.6-2.6 BASIC METABOLIC [id number] 23:51:00 Test Item Value Reference Range Comments SODIUM (BEAKER) (test 137 meq/L 136-145 vblw=744) POTASSIUM (BEAKER) (test 4.0 meq/L 3.5-5.1 evan=916) CHLORIDE (BEAKER) (test 105 meq/L 98-107 jonl=521) CO2 (BEAKER) (test 21 meq/L 22-29 lexm=572) BLOOD UREA NITROGEN 22 mg/dL 7-21 (BEAKER) (test ngii=971) CREATININE (BEAKER) (test 1.15 mg/dL 0.57-1.25 sfli=135) GLUCOSE RANDOM (BEAKER) 160 mg/dL 70-105 (test amqv=862) CALCIUM (BEAKER) (test 8.0 mg/dL 8.4-10.2 iwho=032) EGFR (BEAKER) (test 49 mL/min/1.73 sq m ESTIMATED GFR IS NOT nqsz=7753) ACCURATE CREATININE CLEARANCE IN PREDICTING GLOMERULAR FILTRATION RATE. ESTIMATED GFR IS NOT APPLICABLE FOR DIALYSIS PATIENTS. Specimen slightly ictericBLOOD GAS, [id number] 23:37:00 Test Item Value Reference Range Comments PH ARTERIAL (BEAKER) (test rcsn=444) 7.52 7.35-7.45 PCO2 ARTERIAL (BEAKER) (test uxaa=945) 28 mmHg 35-45 PO2 ARTERIAL (BEAKER) (test xnjr=006) 202 mmHg 80-90 O2 SATURATION ARTERIAL (BEAKER) (test amcj=816) 99.5 % 96.0-97.0 HCO3 ARTERIAL (BEAKER) (test vamr=342) 22 mmol/L 21-29 BASE EXCESS ARTERIAL (BEAKER) (test tdze=007) 0.2 mmol/L -2.0-3.0 PATIENT TEMPERATURE (BEAKER) (test uoeq=9137) 38.0 C FIO2 (BEAKER) (test urgu=6376) 50.0 % CBC W/PLT COUNT & AUTO [id number] 20:12:00 Test Item Value Reference Range Comments WHITE BLOOD CELL COUNT (BEAKER) (test kzzq=753) 14.8 K/ L 3.5-10.5 RED BLOOD CELL COUNT (BEAKER) (test dmfm=002) 3.11 M/ L 3.93-5.22 HEMOGLOBIN (BEAKER) (test whow=354) 8.1 GM/DL 11.2-15.7 HEMATOCRIT (BEAKER) (test uvoo=330) 23.2 % 34.1-44.9 MEAN CORPUSCULAR VOLUME (BEAKER) (test nadj=402) 74.6 fL 79.4-94.8 MEAN CORPUSCULAR HEMOGLOBIN (BEAKER) (test 26.0 pg 25.6-32.2 juij=948) MEAN CORPUSCULAR HEMOGLOBIN CONC (BEAKER) (test 34.9 GM/DL 32.2-35.5 aggd=277) RED CELL DISTRIBUTION WIDTH (BEAKER) (test 17.2 % 11.7-14.4 tngz=991) PLATELET COUNT (BEAKER) (test qyei=355) 92 K/CU MM 150-450 MEAN PLATELET VOLUME (BEAKER) (test indo=492) 10.8 fL 9.4-12.3 NUCLEATED RED BLOOD CELLS (BEAKER) (test 1 /100 WBC 0-0 eufu=804) NEUTROPHILS RELATIVE PERCENT (BEAKER) (test 81 % fzgu=233) LYMPHOCYTES RELATIVE PERCENT (BEAKER) (test 9 % ozix=080) MONOCYTES RELATIVE PERCENT (BEAKER) (test 7 % gtxx=497) EOSINOPHILS RELATIVE PERCENT (BEAKER) (test 1 % oort=035) BASOPHILS RELATIVE PERCENT (BEAKER) (test 0 % qsmf=158) NEUTROPHILS ABSOLUTE COUNT (BEAKER) (test 12.06 K/ L 1.56-6.13 ariv=242) LYMPHOCYTES ABSOLUTE COUNT (BEAKER) (test 1.27 K/ L 1.18-3.74 olcy=901) MONOCYTES ABSOLUTE COUNT (BEAKER) (test eyhc=225) 1.09 K/ L 0.24-0.36 EOSINOPHILS ABSOLUTE COUNT (BEAKER) (test 0.13 K/ L 0.04-0.36 zjlv=665) BASOPHILS ABSOLUTE COUNT (BEAKER) (test gyal=786) 0.02 K/ L 0.01-0.08 IMMATURE GRANULOCYTES-RELATIVE PERCENT (BEAKER) 2 % 0-1 (test fefw=0475) POCT-GLUCOSE [id number] 20:01:00 Test Item Value Reference Range Comments POC-GLUCOSE METER (BEAKER) 143 mg/dL 70-110 : TESTED AT [address] (test orsy=6988) [facility], [id number]: Rolled Seat Trimmer/Painting Trades Worker QZ=[id number] for Eliud Liban BLOOD GAS, [id number] 19:54:00 Test Item Value Reference Range Comments PH ARTERIAL (BEAKER) (test gdrz=434) 7.57 7.35-7.45 PCO2 ARTERIAL (BEAKER) (test lvyv=814) 27 mmHg 35-45 PO2 ARTERIAL (BEAKER) (test jxyj=633) 75 mmHg 80-90 O2 SATURATION ARTERIAL (BEAKER) (test qcir=732) 96.2 % 96.0-97.0 HCO3 ARTERIAL (BEAKER) (test legf=671) 24 mmol/L 21-29 BASE EXCESS ARTERIAL (BEAKER) (test psgf=000) 2.3 mmol/L -2.0-3.0 PATIENT TEMPERATURE (BEAKER) (test xqdc=2737) 38.5 C FIO2 (BEAKER) (test rhor=2537) 24.0 % POCT-GLUCOSE [id number] 19:01:00 Test Item Value Reference Range Comments POC-GLUCOSE METER (BEAKER) 155 mg/dL 70-110 : TESTED AT [address] (test wpuf=9900) [facility], [id number]: Rolled Seat Trimmer/Painting Trades Worker LH=[id number] for GIDEON WADDELL HEPATOBILIARY [id number] 18:38:00Please do at bedside. Thank you.FINAL REPORT PROCEDURE: HEPATOBILIARY SCAN CPT CODE: 63355 INDICATION: abdominal pain PROTOCOL: 5.3 mCi of Tc-99m mebrofenin was injected intravenously. Images of the upper abdomen were obtained for approximately 75 minutes after tracer injection. FINDINGS: Initial tracer uptake into the liver is physiological. Subsequent tracer clearance from the liver proceeds normally. There is good visualization of the extrahepatic biliary duct and the gallbladder, and the tracer appears appropriately in the small bowel. IMPRESSION: Normal hepatobiliary scan. Signed: Jasvir Alarcon MDReport Verified Date/Time: 10/07/2019 18:38:40 Electronicallysigned by: JASVIR ALARCON MD on 10/07/2019 06:38 PMPOCT- GLUCOSE [id number] 16:52:00 Test Item Value Reference Range Comments POC-GLUCOSE METER (BEAKER) 166 mg/dL 70-110 : TESTED AT [address] (test bbit=7367) [facility], [facility]: Rolled Seat Trimmer/Painting Trades Worker AX=[id number] for GIDEON WADDELL PT/[id number] 16:40:00 Test Item Value Reference Range Comments PROTIME (BEAKER) (test bzex=237) 24.8 seconds 11.9-14.2 INR (BEAKER) (test stcc=221) 2.4 <=5.9 PARTIAL THROMBOPLASTIN TIME (BEAKER) (test 32.5 seconds 22.5-36.0 djiy=884) Effective 04/25/2019: PT Reference Range ChangeNew: 11.9-14.2 Previous: 11.7- 14.7RECOMMENDED COUMADIN/WARFARIN INR THERAPY RANGESSTANDARD DOSE: 2.0-3.0 Includes: PROPHYLAXIS for venous thrombosis, systemic embolization; TREATMENT for venous thrombosis and/or pulmonary embolus.HIGH RISK: Target INR is2.5-3.5 for patients wiht mechanical heart valves.[id number] 16:40:00 Test Item Value Reference Range Comments FIBRINOGEN LEVEL (BEAKER) (test ckok=296) 156 mg/dl 225-434 PROTHROMBIN [id number] 16:39:00 Test Item Value Reference Range Comments PROTIME (BEAKER) (test ywdu=090) 24.8 seconds 11.9-14.2 INR (BEAKER) (test cfqj=587) 2.4 <=5.9 Effective 04/25/2019: PT Reference Range ChangeNew: 11.9-14.2 Previous: 11.7- 14.7RECOMMENDED COUMADIN/WARFARIN INR THERAPY RANGESSTANDARD DOSE: 2.0-3.0 Includes: PROPHYLAXIS for venous thrombosis, systemic embolization; TREATMENT for venous thrombosis and/or pulmonary embolus.HIGH RISK: Target INR is2.5-3.5 for patients wiht mechanical heart valves.[id number] 16:36:00 Test Item Value Reference Range Comments PHOSPHORUS (BEAKER) (test ertw=773) 1.8 mg/dL 2.3-4.7 [id number] 16:36:00 Test Item Value Reference Range Comments MAGNESIUM (BEAKER) (test ovzd=478) 2.5 mg/dL 1.6-2.6 BASIC METABOLIC [id number] 16:36:00 Test Item Value Reference Range Comments SODIUM (BEAKER) (test 139 meq/L 136-145 sysi=372) POTASSIUM (BEAKER) (test 3.3 meq/L 3.5-5.1 lwrt=668) CHLORIDE (BEAKER) (test 105 meq/L 98-107 sgno=183) CO2 (BEAKER) (test 19 meq/L 22-29 xqqb=120) BLOOD UREA NITROGEN 25 mg/dL 7-21 (BEAKER) (test fpwv=258) CREATININE (BEAKER) (test 1.29 mg/dL 0.57-1.25 wrmf=095) GLUCOSE RANDOM (BEAKER) 165 mg/dL 70-105 (test qhxp=279) CALCIUM (BEAKER) (test 8.3 mg/dL 8.4-10.2 dzkz=215) EGFR (BEAKER) (test 43 mL/min/1.73 sq m ESTIMATED GFR IS NOT gckk=4780) ACCURATE CREATININE CLEARANCE IN PREDICTING GLOMERULAR FILTRATION RATE. ESTIMATED GFR IS NOT APPLICABLE FOR DIALYSIS PATIENTS. BLOOD GAS, [id number] 16:22:00 Test Item Value Reference Range Comments PH ARTERIAL (BEAKER) (test ocvm=542) 7.54 7.35-7.45 PCO2 ARTERIAL (BEAKER) (test xwad=529) 28 mmHg 35-45 PO2 ARTERIAL (BEAKER) (test qdlb=413) 101 mmHg 80-90 O2 SATURATION ARTERIAL (BEAKER) (test awlz=295) 98.1 % 96.0-97.0 HCO3 ARTERIAL (BEAKER) (test nfnh=887) 23 mmol/L 21-29 BASE EXCESS ARTERIAL (BEAKER) (test bewd=395) 1.3 mmol/L -2.0-3.0 PATIENT TEMPERATURE (BEAKER) (test jjrz=1308) 38.0 C FIO2 (BEAKER) (test iqgq=7083) 25.0 % CBC W/PLT COUNT & AUTO [id number] 12:44:00 Test Item Value Reference Range Comments WHITE BLOOD CELL COUNT (BEAKER) (test tzir=960) 21.0 K/ L 3.5-10.5 RED BLOOD CELL COUNT (BEAKER) (test znjz=851) 3.14 M/ L 3.93-5.22 HEMOGLOBIN (BEAKER) (test uucg=011) 8.4 GM/DL 11.2-15.7 HEMATOCRIT (BEAKER) (test dabj=220) 24.5 % 34.1-44.9 MEAN CORPUSCULAR VOLUME (BEAKER) (test akwx=595) 78.0 fL 79.4-94.8 MEAN CORPUSCULAR HEMOGLOBIN (BEAKER) (test 26.8 pg 25.6-32.2 mjey=343) MEAN CORPUSCULAR HEMOGLOBIN CONC (BEAKER) (test 34.3 GM/DL 32.2-35.5 rkdh=709) RED CELL DISTRIBUTION WIDTH (BEAKER) (test 17.6 % 11.7-14.4 hiee=958) PLATELET COUNT (BEAKER) (test wqza=264) 103 K/CU MM 150-450 MEAN PLATELET VOLUME (BEAKER) (test pqwk=890) 10.3 fL 9.4-12.3 NUCLEATED RED BLOOD CELLS (BEAKER) (test 0 /100 WBC 0-0 ezcy=378) NEUTROPHILS RELATIVE PERCENT (BEAKER) (test 83 % pknw=481) LYMPHOCYTES RELATIVE PERCENT (BEAKER) (test 7 % qyxp=031) MONOCYTES RELATIVE PERCENT (BEAKER) (test 6 % qtec=331) EOSINOPHILS RELATIVE PERCENT (BEAKER) (test 1 % rqpc=362) BASOPHILS RELATIVE PERCENT (BEAKER) (test 0 % euzo=904) NEUTROPHILS ABSOLUTE COUNT (BEAKER) (test 17.33 K/ L 1.56-6.13 itxs=262) LYMPHOCYTES ABSOLUTE COUNT (BEAKER) (test 1.54 K/ L 1.18-3.74 vlhi=287) MONOCYTES ABSOLUTE COUNT (BEAKER) (test 1.34 K/ L 0.24-0.36 cqff=874) EOSINOPHILS ABSOLUTE COUNT (BEAKER) (test 0.16 K/ L 0.04-0.36 sjvb=318) BASOPHILS ABSOLUTE COUNT (BEAKER) (test 0.04 K/ L 0.01-0.08 ufpg=033) IMMATURE GRANULOCYTES-RELATIVE PERCENT (BEAKER) 3 % 0-1 (test xkfv=9200) POCT-GLUCOSE [id number] 12:23:00 Test Item Value Reference Range Comments POC-GLUCOSE METER (BEAKER) 145 mg/dL 70-110 : TESTED AT [facility] [address] [facility] (test zatw=9542) [facility], [address]: Rolled Seat Trimmer/Painting Trades Worker CJ=[id number] for GIDEON WADDELL [id number] 12:06:00 Test Item Value Reference Range Comments T4 TOTAL (BEAKER) (test dsvd=145) 4.6 ug/dL 4.9-11.7 [id number] 10:00:00 Test Item Value Reference Range Comments PHOSPHORUS (BEAKER) (test edxi=982) 2.8 mg/dL 2.3-4.7 [id number] 10:00:00 Test Item Value Reference Range Comments MAGNESIUM (BEAKER) (test pykn=013) 2.0 mg/dL 1.6-2.6 BASIC METABOLIC [id number] 10:00:00 Test Item Value Reference Range Comments SODIUM (BEAKER) (test 137 meq/L 136-145 ekcs=266) POTASSIUM (BEAKER) (test 3.1 meq/L 3.5-5.1 dnez=681) CHLORIDE (BEAKER) (test 106 meq/L 98-107 pkzt=063) CO2 (BEAKER) (test 16 meq/L 22-29 gxek=075) BLOOD UREA NITROGEN 28 mg/dL 7-21 (BEAKER) (test vsuo=130) CREATININE (BEAKER) (test 1.23 mg/dL 0.57-1.25 vnvs=848) GLUCOSE RANDOM (BEAKER) 169 mg/dL 70-105 (test tizl=564) CALCIUM (BEAKER) (test 8.0 mg/dL 8.4-10.2 mmnx=383) EGFR (BEAKER) (test 45 mL/min/1.73 sq m ESTIMATED GFR IS NOT roqf=1043) ACCURATE CREATININE CLEARANCE IN PREDICTING GLOMERULAR FILTRATION RATE. ESTIMATED GFR IS NOT APPLICABLE FOR DIALYSIS PATIENTS. POCT-GLUCOSE [id number] 08:15:00 Test Item Value Reference Range Comments POC-GLUCOSE METER (BEAKER) 174 mg/dL 70-110 : TESTED AT [facility] [address] [facility] (test agmv=4214) [facility], [address]: Rolled Seat Trimmer/Painting Trades Worker VG=[id number] for GIDEON WADDELL RAD, CHEST, 1 VIEW, NON [id number] 05:39:00Reason for exam:-> intubatedShould this be performed at the bedside?->YesFINAL REPORT RAD, CHEST, 1 VIEW, NON DEPT INDICATION: intubated COMPARISON: Prior day's exam FINDINGS: Portable frontal view of the chest. IMPRESSION: Support Lines: Stable. Lungs and pleura: Unchanged scattered interstitial and parenchymal opacities. No pleural effusion. No pneumothorax.Heart and mediastinum: Stable contours. Additional findings: None. Signed: Aurelia Cummins MDReport Verified Date/Time: 10/07/2019 05:39:22 BLOOD GAS, [id number] 05:29: 00 Test Item Value Reference Range Comments PH ARTERIAL (BEAKER) (test dtgn=548) 7.43 7.35-7.45 PCO2 ARTERIAL (BEAKER) (test fkxn=914) 28 mmHg 35-45 PO2 ARTERIAL (BEAKER) (test djjc=729) 113 mmHg 80-90 O2 SATURATION ARTERIAL (BEAKER) (test orhn=923) 98.1 % 96.0-97.0 HCO3 ARTERIAL (BEAKER) (test yvvo=312) 18 mmol/L 21-29 BASE EXCESS ARTERIAL (BEAKER) (test hvlm=728) -5.2 mmol/L -2.0-3.0 PATIENT TEMPERATURE (BEAKER) (test vqcr=4641) 38.5 C FIO2 (BEAKER) (test qcsf=4494) 40.0 % [id number] 05:07:00 Test Item Value Reference Range Comments D-DIMER QUANTITATIVE (BEAKER) (test clxm=343) > MG/L FEU <0.50 Intended Use: The D-Dimer Assay can be used to aid in the diagnosis of Deep Vein Thrombosis (DVT) and Pulmonary Embolism Disease (PED).In patients with low pre-test probability, various studies concerning STA Liatest D-dimer test have reported that with a cutoff value of 0.50 MG/L FEU, the Negative Predictive Value (NPV) regarding the exclusion of thrombosis is within 95-100% range.COMPREHENSIVE METABOLIC [id number] 04:59:00 Test Item Value Reference Range Comments TOTAL PROTEIN (BEAKER) 5.1 gm/dL 6.0-8.3 (test pjii=457) ALBUMIN (BEAKER) (test 3.3 g/dL 3.5-5.0 iahk=8682) ALKALINE PHOSPHATASE 201 U/L 40-150 (BEAKER) (test bkrp=635) BILIRUBIN TOTAL (BEAKER) 2.1 mg/dL 0.2-1.2 (test yutf=919) SODIUM (BEAKER) (test 135 meq/L 136-145 yelq=186) POTASSIUM (BEAKER) (test 3.7 meq/L 3.5-5.1 eqor=575) CHLORIDE (BEAKER) (test 110 meq/L 98-107 xxzw=749) CO2 (BEAKER) (test 11 meq/L 22-29 dqfl=144) BLOOD UREA NITROGEN 30 mg/dL 7-21 (BEAKER) (test wyun=158) CREATININE (BEAKER) (test 1.16 mg/dL 0.57-1.25 ybrz=664) GLUCOSE RANDOM (BEAKER) 141 mg/dL 70-105 (test hecf=494) CALCIUM (BEAKER) (test 7.5 mg/dL 8.4-10.2 dahs=753) AST (SGOT) (BEAKER) (test 1933 U/L 5-34 axaq=135) ALT (SGPT) (BEAKER) (test 2826 U/L 6-55 gstz=263) EGFR (BEAKER) (test 49 mL/min/1.73 sq m ESTIMATED GFR IS NOT nvnp=8415) ACCURATE CREATININE CLEARANCE IN PREDICTING GLOMERULAR FILTRATION RATE. ESTIMATED GFR IS NOT APPLICABLE FOR DIALYSIS PATIENTS. CBC W/PLT COUNT & AUTO [id number] 04:32:00 Test Item Value Reference Range Comments WHITE BLOOD CELL COUNT (BEAKER) (test vpaz=844) 17.4 K/ L 3.5-10.5 RED BLOOD CELL COUNT (BEAKER) (test hyxp=051) 3.17 M/ L 3.93-5.22 HEMOGLOBIN (BEAKER) (test uesz=925) 8.3 GM/DL 11.2-15.7 HEMATOCRIT (BEAKER) (test ztoi=068) 24.5 % 34.1-44.9 MEAN CORPUSCULAR VOLUME (BEAKER) (test qcrg=305) 77.3 fL 79.4-94.8 MEAN CORPUSCULAR HEMOGLOBIN (BEAKER) (test 26.2 pg 25.6-32.2 bryb=206) MEAN CORPUSCULAR HEMOGLOBIN CONC (BEAKER) (test 33.9 GM/DL 32.2-35.5 pbeg=900) RED CELL DISTRIBUTION WIDTH (BEAKER) (test 17.6 % 11.7-14.4 wtcr=915) PLATELET COUNT (BEAKER) (test dbjp=069) 88 K/CU MM 150-450 MEAN PLATELET VOLUME (BEAKER) (test mfnw=454) 9.7 fL 9.4-12.3 NUCLEATED RED BLOOD CELLS (BEAKER) (test 1 /100 WBC 0-0 jtvp=387) NEUTROPHILS RELATIVE PERCENT (BEAKER) (test 83 % xhms=834) LYMPHOCYTES RELATIVE PERCENT (BEAKER) (test 9 % jqst=604) MONOCYTES RELATIVE PERCENT (BEAKER) (test 5 % zknt=862) EOSINOPHILS RELATIVE PERCENT (BEAKER) (test 1 % uqcx=113) BASOPHILS RELATIVE PERCENT (BEAKER) (test 0 % nvuv=717) NEUTROPHILS ABSOLUTE COUNT (BEAKER) (test 14.45 K/ L 1.56-6.13 qimb=663) LYMPHOCYTES ABSOLUTE COUNT (BEAKER) (test 1.50 K/ L 1.18-3.74 uelg=763) MONOCYTES ABSOLUTE COUNT (BEAKER) (test bwiu=911) 0.91 K/ L 0.24-0.36 EOSINOPHILS ABSOLUTE COUNT (BEAKER) (test 0.14 K/ L 0.04-0.36 yiqb=238) BASOPHILS ABSOLUTE COUNT (BEAKER) (test qkyk=036) 0.02 K/ L 0.01-0.08 IMMATURE GRANULOCYTES-RELATIVE PERCENT (BEAKER) 2 % 0-1 (test gmyq=3931) [id number] 04:30:00 Test Item Value Reference Range Comments PHOSPHORUS (BEAKER) (test ltdd=221) 3.1 mg/dL 2.3-4.7 [id number] 04:30:00 Test Item Value Reference Range Comments MAGNESIUM (BEAKER) (test bipn=053) 1.8 mg/dL 1.6-2.6 POCT-GLUCOSE [id number] 04:25:00 Test Item Value Reference Range Comments POC-GLUCOSE METER (BEAKER) 126 mg/dL 70-110 : TESTED AT [address] (test cgix=2771) [facility], [id number]: Rolled [employer]at Tr[employer] Worker LD=[id number] for Liban Kline [id number] 04:18:00 Test Item Value Reference Range Comments FIBRINOGEN LEVEL (BEAKER) (test vvmr=202) 173 mg/dl 225-434 [id number] 04:14:00 Test Item Value Reference Range Comments PROTIME (BEAKER) (test pjwy=151) 25.9 seconds 11.9-14.2 INR (BEAKER) (test jscf=011) 2.5 <=5.9 PARTIAL THROMBOPLASTIN TIME (BEAKER) (test 34.5 seconds 22.5-36.0 utso=754) Effective 04/25/2019: PT Reference Range ChangeNew: 11.9-14.2 Previous: 11.7- 14.7RECOMMENDED COUMADIN/WARFARIN INR THERAPY RANGESSTANDARD DOSE: 2.0-3.0 Includes: PROPHYLAXIS for venous thrombosis, systemic embolization; TREATMENT for venous thrombosis and/or pulmonary embolus.HIGH RISK: Target INR is2.5-3.5 for patients wiht mechanical heart valves.LACTIC ACID, [id number] 04:13:00 Test Item Value Reference Range Comments LACTATE BLOOD VENOUS (2) (BEAKER) (test 1.2 mmol/L 0.5-2.2 ffwg=8059) POCT-GLUCOSE [id number] 01:33:00 Test Item Value Reference Range Comments POC-GLUCOSE METER (BEAKER) 103 mg/dL 70-110 : TESTED AT [facility] [address] [facility] (test vxbb=8310) [facility], [id number]: Rolled Seat Trimmer/Painting Tr[employer] Worker XB=[id number] for GISELE GUSTAFSON HEMOGLOBIN AND [id number] 00:27:00 Test Item Value Reference Range Comments HEMOGLOBIN (BEAKER) (test acqt=477) 8.6 GM/DL 11.2-15.7 HEMATOCRIT (BEAKER) (test jjtv=958) 26.2 % 34.1-44.9 POCT-GLUCOSE [id number] 22:58:00 Test Item Value Reference Range Comments POC-GLUCOSE METER (BEAKER) 146 mg/dL 70-110 : TESTED AT [address] (test ekun=3342) [facility], [id number]: Rolled Seat Trimmer/[employer]ting Tr[employer] Worker VH=[id number] for GISELE GUSTAFSON RAD, CHEST, 1 VIEW, NON [id number] 21:37:00Reason for exam:->line placement, right IJShould this be performed at the bedside?->YesFINAL REPORT RAD, CHEST, 1 VIEW, NON DEPT INDICATION: line placement, right IJ COMPARISON: Same day's exam FINDINGS: Portable frontal view of the chest. IMPRESSION: Support Lines: Interval repositioning of the endotracheal tube which terminates at the level of the ganesh, recommend retracting approximately 3 to 4 cm. Interval placement of a right IJ central venous catheter with tip overlying the SVC. Enteric tube is seen coursing inferiorly, tip overlying the expected location of the distal esophagus proximal sidehole in the mid esophagus, recommend advancing. Spinal cord stimulator leads overlie the midthoracic spine. Lungs and pleura: Unchanged airspace and pleural opacities. No pneumothorax.Heart and mediastinum: Stable contours. Additional findings: Stable surgical changes the left clavicle. Signed: Donnie Rodríguez Verified Date/Time: 10/06/2019 21:37:58 [facility] [id number] 20:04:00 Test Item Value Reference Range Comments SODIUM (BEAKER) (test 137 meq/L 136-145 mzjm=283) POTASSIUM (BEAKER) (test 3.1 meq/L 3.5-5.1 Specimen slightly hmha=142) hemolyzed CHLORIDE (BEAKER) (test 112 meq/L 98-107 uncp=979) CO2 (BEAKER) (test 10 meq/L 22-29 fsfk=173) BLOOD UREA NITROGEN 37 mg/dL 7-21 (BEAKER) (test gqka=783) CREATININE (BEAKER) (test 1.21 mg/dL 0.57-1.25 Specimen slightly wjkv=452) hemolyzed GLUCOSE RANDOM (BEAKER) 170 mg/dL 70-105 (test qvkr=712) CALCIUM (BEAKER) (test 7.9 mg/dL 8.4-10.2 eaju=462) EGFR (BEAKER) (test 46 mL/min/1.73 sq m ESTIMATED GFR IS NOT lgnw=5606) ACCURATE CREATININE CLEARANCE IN PREDICTING GLOMERULAR FILTRATION RATE. ESTIMATED GFR IS NOT APPLICABLE FOR DIALYSIS PATIENTS. PROTEIN, RANDOM [id number] 19:50:00 Test Item Value Reference Range Comments PROTEIN, URINE (BEAKER) (test lyyn=3635) 83 mg/dL 0-14 CREATININE, RANDOM [id number] 19:28:00 Test Item Value Reference Range Comments CREATININE URINE (BEAKER) (test utgo=709) 37.6 mg/dL Reference Range: No [id number] 19:00:00 Test Item Value Reference Range Comments MAGNESIUM (BEAKER) (test 2.0 mg/dL 1.6-2.6 Specimen slightly hemolyzed ikym=978) [id number] 19:00:00 Test Item Value Reference Range Comments PHOSPHORUS (BEAKER) (test 1.8 mg/dL 2.3-4.7 Specimen slightly hemolyzed usux=213) CBC (HEMOGRAM ONLY)2019-10-06 18:59:00 Test Item Value Reference Range Comments WHITE BLOOD CELL COUNT (BEAKER) (test zhwn=602) 16.6 K/ L 3.5-10.5 RED BLOOD CELL COUNT (BEAKER) (test vmph=664) 2.45 M/ L 3.93-5.22 HEMOGLOBIN (BEAKER) (test btsw=022) 6.8 GM/DL 11.2-15.7 HEMATOCRIT (BEAKER) (test hkwn=726) 18.2 % 34.1-44.9 MEAN CORPUSCULAR VOLUME (BEAKER) (test ccmt=209) 74.3 fL 79.4-94.8 MEAN CORPUSCULAR HEMOGLOBIN (BEAKER) (test 27.8 pg 25.6-32.2 hmef=218) MEAN CORPUSCULAR HEMOGLOBIN CONC (BEAKER) (test 37.4 GM/DL 32.2-35.5 meep=967) RED CELL DISTRIBUTION WIDTH (BEAKER) (test 16.5 % 11.7-14.4 pxcp=662) PLATELET COUNT (BEAKER) (test bact=507) 96 K/CU MM 150-450 MEAN PLATELET VOLUME (BEAKER) (test rxdy=939) 9.5 fL 9.4-12.3 NUCLEATED RED BLOOD CELLS (BEAKER) (test 0 /100 WBC 0-0 elwc=719) LACTIC ACID, [id number] 18:55:00 Test Item Value Reference Range Comments LACTATE BLOOD VENOUS (2) 1.9 mmol/L 0.5-2.2 Specimen slightly hemolyzed (BEAKER) (test tuop=3503) VITAMIN B12 AND [id number] 18:36:00 Test Item Value Reference Range Comments VITAMIN B12 (BEAKER) (test qqhb=283) > pg/mL 213-816 FOLATE (BEAKER) (test gfid=527) 17.3 ng/mL >=7.0 BLOOD GAS, [id number] 18:29:00 Test Item Value Reference Range Comments PH ARTERIAL (BEAKER) (test vetn=492) 7.41 7.35-7.45 PCO2 ARTERIAL (BEAKER) (test rxyp=394) 25 mmHg 35-45 PO2 ARTERIAL (BEAKER) (test phxj=277) 88 mmHg 80-90 O2 SATURATION ARTERIAL (BEAKER) (test ufpq=265) 96.6 % 96.0-97.0 HCO3 ARTERIAL (BEAKER) (test qeyl=622) 15 mmol/L 21-29 BASE EXCESS ARTERIAL (BEAKER) (test lvhm=193) -8.0 mmol/L -2.0-3.0 PATIENT TEMPERATURE (BEAKER) (test mutd=7766) 38.0 C FIO2 (BEAKER) (test ghlm=0267) 40.0 % BASIC METABOLIC [id number] 17:47:00 Test Item Value Reference Range Comments SODIUM (BEAKER) (test 138 meq/L 136-145 oitr=015) POTASSIUM (BEAKER) (test 4.1 meq/L 3.5-5.1 lnoz=678) CHLORIDE (BEAKER) (test 113 meq/L 98-107 lcrm=252) CO2 (BEAKER) (test 10 meq/L 22-29 ozpj=628) BLOOD UREA NITROGEN 37 mg/dL 7-21 (BEAKER) (test wpgr=119) CREATININE (BEAKER) (test 1.19 mg/dL 0.57-1.25 wdgf=756) GLUCOSE RANDOM (BEAKER) 137 mg/dL 70-105 (test umeb=377) CALCIUM (BEAKER) (test 8.1 mg/dL 8.4-10.2 flyc=904) EGFR (BEAKER) (test 47 mL/min/1.73 sq m ESTIMATED GFR IS NOT lhku=8163) ACCURATE CREATININE CLEARANCE IN PREDICTING GLOMERULAR FILTRATION RATE. ESTIMATED GFR IS NOT APPLICABLE FOR DIALYSIS PATIENTS. POCT-GLUCOSE [id number] 17:39:00 Test Item Value Reference Range Comments POC-GLUCOSE METER (BEAKER) 188 mg/dL 70-110 : TESTED AT [address] (test bkzn=6747) [facility], [address]: Rolled Seat Trimmer/Painting Trades Worker [id number] for GIDEON WADDELL LIPID [id number] 17:28:00 Test Item Value Reference Range Comments TRIGLYCERIDES (BEAKER) (test jisd=964) 182 mg/dL CHOLESTEROL (BEAKER) (test mzba=766) 106 mg/dL HDL CHOLESTEROL (BEAKER) (test xzrq=027) 20 mg/dL LDL CHOLESTEROL CALCULATED (BEAKER) (test 50 mg/dL ibdf=276) Triglyceride Reference Range: Low Risk <150 Borderline 150- 199 High Risk 200-499 Very High Risk >=500Cholesterol Reference Range: Low Risk <200 Borderline 200-239 High Risk > 240HDL Cholesterol Reference Range: Low Risk >=60 High Risk <40LDL Cholesterol Reference Range: Optimal <100 Near Optimal 100-129 Borderline 130-159 High 160-189 Very High >=190URIC [id number] 17:28:00 Test Item Value Reference Range Comments URIC ACID (JASON) (test vdwr=157) 7.3 mg/dL 2.6-7.2 HEMOGLOBIN [id number] 16:13:00 Test Item Value Reference Range Comments HEMOGLOBIN A1C (SHANNONAKER) (test pdhf=331) 6.0 % 4.3-6.1 HEPATITIS A ANTIBODY, [id number] 16:13:00 Test Item Value Reference Range Comments HEPATITIS A IGG ANTIBODY (JASON) (test qwae=0254) Reactive Nonreactive CARCINOEMBRYONIC ANTIGEN (CEA)2019-10-06 16:08:00 Test Item Value Reference Range Comments CARCINOEMBRYONIC ANTIGEN (BEAKER) (test csfq=214) 23.1 ng/mL 0.0-5.0 VITAMIN D, [id number] 16:08:00 Test Item Value Reference Range Comments VITAMIN D 25-OH (JASON) (test dpos=3597) 10.1 ng/mL 6.6-49.9 Effective 09/07/2017: Reference Range ChangeNew: 6.6-49.9 ng/mL Previous: 13.0 -47.8 ng/mLRecommended Vitamin D Target Range: 30.0-40.0 ng/[id number] 15:52:00 Test Item Value Reference Range Comments TRANSFERRIN (BEAKER) (test awet=003) 218 mg/dL 174-382 [id number] 15:09:00 Test Item Value Reference Range Comments PHOSPHORUS (BEAKER) (test vzeo=998) 1.7 mg/dL 2.3-4.7 U/S, ABDOMINAL, WITH [id number] 15:01:00Reason for exam:->acute liver injury, ? cholecystitis, ? portal vein thrombosisShould this be performed at the bedside?->YesFINAL REPORT Ultrasound of the Abdomen and Duplex Doppler. TECHNIQUE: Sonographic assessment of the abdomen was performed as well as a detailed duplex Doppler assessment of the liver including spectral wave forms and color-flow analysis of the major vascular structures. ClinicalHistory: acute liver injury, ? cholecystitis, ? portal vein thrombosis. Comparison study: None. Findings: The liver is homogeneous in echotexture with no focal masses. It measures 13.7 cm in length. The CBD is not seen but no intrahepatic biliary dilatation is noted. The main portal vein diameter is 0.9 cm. Some pericholecystic fluid and significant gallbladder wall thickening are identified. No stones are seen. There is no sonographic Miller sign. The spleen measures 11.6 cm, unremarkable. The pancreas is within normal limits. No ascites is present. The right kidney measures 11.4 cm and left kidney measures 12.5 cm, both within normal limits. No pleural effusions are seen. The proximal aorta and IVC are unremarkable. Doppler interrogation of the liver demonstrates a main portal vein diameter measuring 0.9 cm with a peak systolic velocity of 23 cm/sec. Hepatopetal inflow is seen in the right,left, main portal and splenic veins. The resistive indices in the proper and left hepatic arteries are 0.8 and 0.8 respectively. Outflow with appropriate directionality is seen in the IVC, hepatic venous confluence as well as the right, middle and left hepatic veins. Impression: 1. Homogeneous liver with no masses identified.2. Gallbladder wall thickening and some pericholecystic fluid. This could be on the basis of a low albumin versus cholecystitis. HIDA scan could be performed as clinically indicated. No sonographic Miller sign is appreciated.3. Right hepatic artery not seen. Otherwise unremarkable hepatic Doppler.4. CBD not seen. No intrahepatic biliary dilatation. Signed: Hugh Martin MDReport Verified Date/Time: 10/06/2019 15:01:21 Reading Location: [address] Reading Room PREGNANCY SCREEN, [id number] 14:58: 00 Test Item Value Reference Range Comments TEST URINE (BEAKER) (test hxqi=377) Negative POCT-GLUCOSE [id number] 12:44:00 Test Item Value Reference Range Comments POC-GLUCOSE METER (BEAKER) 156 mg/dL 70-110 : TESTED AT [facility] [address] [facility] (test jkci=2914) [facility], [address]: Rolled Seat Trimmer/Painting Trades Worker [id number] for GIDEON WADDELL [id number] 12:39:00 Test Item Value Reference Range Comments RPR SCREEN (BEAKER) (test ousl=028) Nonreactive Nonreactive B-TYPE NATRIURETIC FACTOR (BNP)2019-10-06 11:57:00 Test Item Value Reference Range Comments B-TYPE NATRIURETIC PEPTIDE (BEAKER) (test 3996 pg/mL 0-100 ozhk=829) [id number] 11:51:00 Test Item Value Reference Range Comments MAGNESIUM (BEAKER) (test bdci=643) 2.2 mg/dL 1.6-2.6 BLOOD GAS, [id number] 11:50:00 Test Item Value Reference Range Comments PH VENOUS (BEAKER) (test blln=213) 7.34 7.32-7.42 PCO2 VENOUS (BEAKER) (test lnwn=223) 23 mmHg 41-51 PO2 VENOUS (BEAKER) (test mhwj=127) 70 mmHg 25-40 O2 SATURATION VENOUS (BEAKER) (test oydf=905) 93.2 % 40.0-70.0 HCO3 VENOUS (BEAKER) (test dljn=255) 12 mmol/L 21-29 BASE EXCESS VENOUS (BEAKER) (test ocyn=352) -12.0 mmol/L -2.0-3.0 PATIENT TEMPERATURE (BEAKER) (test eekb=6545) 37.4 C FIO2 (BEAKER) (test cgiw=8418) 50.0 % RESPIRATORY PANEL [id number] 11:35:00 Test Item Value Reference Range Comments HUMAN METAPNEUMOVIRUS (BEAKER) (test Not detected Not detected, Equivocal kzfa=4848) RHINOVIRUS (BEAKER) (test kqjl=1375) Not detected Not detected, Equivocal INFLUENZA A (BEAKER) (test ruaq=6361) Not detected Not detected, Equivocal INFLUENZA A (NO SUBTYPE) (test qkjg=1009) INFLUENZA A SUBTYPE H1 (BEAKER) (test xeub=9286) INFLUENZA A SUBTYPE H3 (BEAKER) (test jkxw=7874) INFLUENZA A SUBTYPE H1-2009 (BEAKER) (test atft=8517) INFLUENZA B (BEAKER) (test jhcl=6819) Not detected Not detected, Equivocal RESPIRATORY SYNCYTIAL VIRUS (BEAKER) Not detected Not detected, Equivocal (test zluf=5301) PARAINFLUENZA VIRUS 1 (BEAKER) (test Not detected Not detected, Equivocal nwkq=5285) PARAINFLUENZA VIRUS 2 (BEAKER) (test Not detected Not detected, Equivocal iqwm=8116) PARAINFLUENZA VIRUS 3 (BEAKER) (test Not detected Not detected, Equivocal fhij=4733) PARAINFLUENZA VIRUS 4 (BEAKER) (test Not detected Not detected, Equivocal ohbc=9196) ADENOVIRUS (BEAKER) (test ozqm=0816) Not detected Not detected, Equivocal CORONAVIRUS 229E (BEAKER) (test Not detected Not detected, Equivocal dgot=3659) CORONAVIRUS HKU1 (BEAKER) (test Not detected Not detected, Equivocal axhn=9237) CORONAVIRUS NL63 (BEAKER) (test Not detected Not detected, Equivocal oyrr=3116) CORONAVIRUS OC43 (BEAKER) (test Not detected Not detected, Equivocal mwar=8562) BORDETELLA PERTUSSIS (BEAKER) (test Not detected Not detected, Equivocal wynv=6923) CHLAMYDOPHILA PNEUMONIAE (BEAKER) (test Not detected Not detected, Equivocal nwwy=2032) MYCOPLASMA PNEUMONIAE (BEAKER) (test Not detected Not detected, Equivocal bjgk=3368) Other viruses and bacteria not targeted by this PCR panel cannot be excluded; therefore clinical correlation and follow up of serology, culture results, and other molecular studies is required. The results are not intended to be used as the sole means for clinical diagnosis or patient management decisions. This sample was tested at the [facility] Molecular Diagnostics Laboratory using the [employer]er[employer] Virtual AssistantsArray Respiratory Panel. It is FDA cleared and has been verified and approved by the [facility] Molecular Diagnostics Laboratory for clinical use on nasopharyngeal swab specimens.The performance of the FilmArrayRP has not been established in individuals who received influenza vaccine. Recent administration ofa nasal influenza vaccine may cause false positive results for Influenza A and/orInfluenza B.RETICULOCYTE [id number] 11:32:00 Test Item Value Reference Range Comments RETICULOCYTE COUNT PCT (BEAKER) (test jynh=119) 2.1 % 0.5-1.7 KETONE, [id number] 11:30:00 Test Item Value Reference Range Comments KETONES, BLOOD (BEAKER) (test iqnb=3304) 0.3 mmol/L <0.4 LEGIONELLA ANTIGEN, [id number] 09:37:00 Test Item Value Reference Range Comments L. PNEUMOPHILA SEROGP 1 Negative - see Negative for L. UR AG (BEAKER) (test comment pneumophila serogroup 1 cvro=7819) antigen, suggesting no recent or current infection with this serogroup. Legionellosis cannot be ruled out since other serogroups and species may cause disease. STREP PNEUMONIAE [id number] 09:37:00 Test Item Value Reference Range Comments STREP PNEUMONIAE ANTIGEN Presumptive negative for Presumptive negative for (BEAKER) (test pneumococcal pneumonia - pneumococcal pneumonia - tbbs=2308) see comment see commen Presumptive negative for pneumococcal pneumonia, suggesting no current or recent pneumococcal infection. Infection due to S. pneumoniae cannot be ruled out since the antigen present in the sample may be below the detection limit of the test.POCT-GLUCOSE [id number] 08:45:00 Test Item Value Reference Range Comments POC-GLUCOSE METER (SHANNONAKER) 119 mg/dL 70-110 : TESTED AT [facility] [address] [facility] (test cdun=1908) [facility], [address]: Rolled Seat Trimmer/Painting Trades Worker [id number] for GIDEON WADDELL RAD, CHEST, 1 VIEW, NON [id number] 08:37:00Post-intubationReason for exam:-& gt;intubationShould this be performed at the bedside?->YesFINAL REPORT Portable chest. CLINICAL HISTORY: intubation. COMPARISON STUDY: None. FINDINGS: The cardiac silhouette is prominent in size. The pulmonary parenchyma demonstrates increased interstitial markings bilaterally with patchy airspace opacities. An endotracheal tube, nasogastric tube and spinal stimulation device are seen. The tip of the endotracheal tube is approximately5.5 cm above the ganesh. No pneumothorax is seen. Degenerative changes are noted. There are postsurgical changes in the left clavicle. IMPRESSION: Multiple support lines and tubes in place with interstitial pulmonary markings suggestive of CHF. In the right clinical setting, a superimposed infection would be difficult to exclude. Clinical correlation and short term imaging follow-up could be made to exclude other etiologies.. Signed : Hugh Martin MDReport Verified Date/Time: 10/06/2019 08:37:13 Reading Location: [address] Reading Room [id number] 07:44:00 Test Item Value Reference Range Comments PROCALCITONIN (BEAKER) (test kfrw=3447) 0.97 ng/mL <0.05 SEPSIS RISK (ng/mL)Low: 0.05-0.50Intermediate: 0.51-2.00High: & gt;=2.01URINALYSIS W/ REFLEX URINE [id number] 07:15:00 Test Item Value Reference Range Comments COLOR (BEAKER) (test zzgk=689) Yellow CLARITY (BEAKER) (test yics=487) Clear SPECIFIC GRAVITY UA (BEAKER) (test zqqy=534) 1.014 1.001-1.035 PH UA (BEAKER) (test qanh=194) 6.5 5.0-8.0 PROTEIN UA (BEAKER) (test sgoh=525) 20 mg/dL Negative GLUCOSE UA (BEAKER) (test bpmz=385) Negative Negative KETONES UA (BEAKER) (test auto=868) Negative Negative BILIRUBIN UA (BEAKER) (test eyrb=478) Negative Negative BLOOD UA (BEAKER) (test ffug=683) Moderate Negative NITRITE UA (BEAKER) (test flfn=016) Negative Negative LEUKOCYTE ESTERASE UA (BEAKER) (test qmou=610) Negative Negative UROBILINOGEN UA (BEAKER) (test rlce=507) 0.2 mg/dL 0.2-1.0 RBC UA (BEAKER) (test wqqv=177) 16 /HPF WBC UA (BEAKER) (test tegd=850) 1 /HPF BACTERIA (BEAKER) (test tfxq=360) Rare SQUAMOUS EPITHELIAL (BEAKER) (test yvyi=299) < /HPF AMORPHOUS CRYSTALS (BEAKER) (test jfvx=2931) Rare SOURCE(BEAKER) (test mzty=7652) ALPHA FETOPROTEIN (AFP), TUMOR [id number] 06:49:00 Test Item Value Reference Range Comments ALPHA-FETOPROTEIN (BEAKER) (test amyt=8608) < ng/mL <10.0 For 1 occurencesHEPATITIS B SURFACE [id number] 06:49:00 Test Item Value Reference Range Comments HEPATITIS B SURFACE ANTIBODY (BEAKER) (test < mIU/mL <8.0 ieoe=202) For 1 occurencesRAPID DRUG SCREEN, [id number] 06:33:00 Test Item Value Reference Range Comments BARBITURATE URINE (BEAKER) (test eadz=186) Negative Negative BENZODIAZEPINE SCREEN URINE (BEAKER) (test Negative Negative zday=931) COCAINE (METAB.) SCREEN (BEAKER) (test sfut=8637) Negative Negative METHADONE SCREEN (BEAKER) (test lswn=5149) Negative Negative OPIATE SCREEN URINE (BEAKER) (test gxwl=894) Positive Negative CANNABINOID SCREEN URINE (BEAKER) (test nobn=427) Negative Negative AMPH/METHAMPH SCREEN (BEAKER) (test fovw=9094) Negative Negative PHENCYCLIDINE SCREEN URINE (BEAKER) (test abog=123) Negative Negative DRUG CUTOFF CONC.Cocaine 300 ng/mL Cannabinoid 50 ng/mLBenzodiazepine 200 ng/mLBarbiturate 200 ng/ mLPhencyclidine 25 ng/mLOpiate 300 ng/mLMethadone 300 ng/mLAmphetamine/ 1000 ng/mL MethamphetamineThis assay provides an unconfirmed qualitative test result for the clinical management of patients in emergency situations. Chain of custody not maintained. Some dldu-goj-djtzgfu medications, as well as adulterants, may cause inaccurate results. Clinical correlation should be applied. A more comprehensivedrug screen or confirmation of a detected drug may be performed upon request.CREATININE, RANDOM [id number] 06:30:00 Test Item Value Reference Range Comments CREATININE URINE (BEAKER) (test vied=930) 38.0 mg/dL Reference Range: No NormalsSODIUM, RANDOM [id number] 06:30:00 Test Item Value Reference Range Comments SODIUM URINE (BEAKER) (test fjaa=045) 51 meq/L Reference Range: No NormalsHEPATITIS B CORE ANTIBODY, [id number] 06:27:00 Test Item Value Reference Range Comments HEPATITIS B CORE TOTAL ANTIBODY (BEAKER) (test Nonreactive Nonreactive aqnl=671) For 1 [id number] 05:50:00 Test Item Value Reference Range Comments FERRITIN (BEAKER) (test rmun=607) 1588 ng/mL 5-275 For 1 occurencesACETAMINOPHEN [id number] 05:30:00 Test Item Value Reference Range Comments ACETAMINOPHEN LEVEL (BEAKER) (test gepc=782) < ug/mL 10.0-30.0 Therapeutic Range: 10.0-30.0 g/mLToxic Levels: >200.0 g/mLFor 1 omhgkmnzhvNYNJB-2-[id number] 05:20:00 Test Item Value Reference Range Comments ALPHA-1 ANTITRYPSIN (BEAKER) (test ikcy=531) 266.90 mg/dL 90.00-200.00 [id number] 05:17:00 Test Item Value Reference Range Comments THYROID STIMULATING HORMONE (BEAKER) (test 0.75 uIU/mL 0.35-4.94 vsau=548) HEPATITIS PANEL, [id number] 05:17:00 Test Item Value Reference Range Comments HEPATITIS A IGM ANTIBODY (BEAKER) (test Nonreactive Nonreactive mgpc=175) HEPATITIS B CORE IGM ANTIBODY (BEAKER) (test Nonreactive Nonreactive ihqj=393) HEPATITIS C ANTIBODY (BEAKER) (test lqfi=994) Nonreactive Nonreactive HEPATITIS B SURFACE ANTIGEN (2) (BEAKER) (test Nonreactive Nonreactive tyyc=5939) HIV-1 ANTIGEN WITH HIV-1/2 [id number] 05:17:00 Test Item Value Reference Range Comments HIV-1 ANTIGEN WITH HIV 1\T\2 ANTIBODY (2) Nonreactive Nonreactive (BEAKER) (test trbm=9903) BASIC METABOLIC [id number] 05:09:00 Test Item Value Reference Range Comments SODIUM (BEAKER) (test 138 meq/L 136-145 nbyc=501) POTASSIUM (BEAKER) (test 3.3 meq/L 3.5-5.1 acoo=978) CHLORIDE (BEAKER) (test 112 meq/L 98-107 jarf=160) CO2 (BEAKER) (test 13 meq/L 22-29 gxim=904) BLOOD UREA NITROGEN 42 mg/dL 7-21 (BEAKER) (test idoi=519) CREATININE (BEAKER) (test 1.20 mg/dL 0.57-1.25 cgwb=588) GLUCOSE RANDOM (BEAKER) 121 mg/dL 70-105 (test vjqx=571) CALCIUM (BEAKER) (test 7.7 mg/dL 8.4-10.2 novj=699) EGFR (BEAKER) (test 47 mL/min/1.73 sq m ESTIMATED GFR IS NOT fbal=1361) ACCURATE CREATININE CLEARANCE IN PREDICTING GLOMERULAR FILTRATION RATE. ESTIMATED GFR IS NOT APPLICABLE FOR DIALYSIS PATIENTS. HEPATIC FUNCTION [id number] 05:09:00 Test Item Value Reference Range Comments TOTAL PROTEIN (BEAKER) (test iveq=659) 5.5 gm/dL 6.0-8.3 ALBUMIN (BEAKER) (test opmg=3656) 3.1 g/dL 3.5-5.0 BILIRUBIN TOTAL (BEAKER) (test dtgw=712) 1.3 mg/dL 0.2-1.2 BILIRUBIN DIRECT (BEAKER) (test owlc=294) 1.0 mg/dL 0.1-0.5 ALKALINE PHOSPHATASE (BEAKER) (test hflo=032) 231 U/L 40-150 AST (SGOT) (BEAKER) (test uqit=245) > U/L 5-34 ALT (SGPT) (BEAKER) (test srjl=793) > U/L 6-55 [id number] 05:07:00 Test Item Value Reference Range Comments PHOSPHORUS (BEAKER) (test fdqd=891) 3.6 mg/dL 2.3-4.7 [id number] 05:07:00 Test Item Value Reference Range Comments MAGNESIUM (BEAKER) (test jgek=344) 2.2 mg/dL 1.6-2.6 CREATINE KINASE (CK)2019-10-06 05:07:00 Test Item Value Reference Range Comments CREATINE KINASE TOTAL (BEAKER) (test gmee=769) 1901 U/L 29-200 GAMMA GLUTAMYL TRANSFERASE (GGT)2019-10-06 05:07:00 Test Item Value Reference Range Comments GAMMA GLUTAMYL TRANSFERASE (BEAKER) (test tovv=402) 111 U/L 9-64 LACTIC ACID, [id number] 04:58:00 Test Item Value Reference Range Comments LACTATE BLOOD ARTERIAL (2) (BEAKER) (test 1.5 mmol/L 0.5-2.2 nivb=1758) [id number] 04:56:00 Test Item Value Reference Range Comments ETHANOL (BEAKER) (test daut=879) < mg/dL <=10 [id number] 04:54:00 Test Item Value Reference Range Comments AMMONIA (BEAKER) (test wtrf=423) 144 mol/L 18-72 IMMUNOGLOBULIN G (IGG)2019-10-06 04:54:00 Test Item Value Reference Range Comments IMMUNOGLOBULIN G (IGG) (BEAKER) (test gnwh=281) 679 mg/dL 540-1,822 IRON, TIBC, % SAT. (WITHOUT FERRITIN)2019-10-06 04:54:00 Test Item Value Reference Range Comments IRON (BEAKER) (test aihp=110) 57.0 ug/dL 40.0-160.0 TOTAL IRON BINDING CAPACITY (BEAKER) (test 308 ug/dL 250-450 cuce=532) IRON % SATURATION (2) (BEAKER) (test ebpf=0140) 19 % 20-55 BLOOD GAS, [id number] 04:53:00 Test Item Value Reference Range Comments PH ARTERIAL (BEAKER) (test gafi=726) 7.34 7.35-7.45 PCO2 ARTERIAL (BEAKER) (test jayl=673) 27 mmHg 35-45 PO2 ARTERIAL (BEAKER) (test zaet=471) 73 mmHg 80-90 O2 SATURATION ARTERIAL (BEAKER) (test mqra=653) 93.9 % 96.0-97.0 HCO3 ARTERIAL (BEAKER) (test rfss=897) 14 mmol/L 21-29 BASE EXCESS ARTERIAL (BEAKER) (test dtqp=444) -10.5 mmol/L -2.0-3.0 PATIENT TEMPERATURE (BEAKER) (test pptn=1157) 37.5 C FIO2 (BEAKER) (test mxej=4895) 30.0 % CBC W/PLT COUNT & AUTO [id number] 04:53:00 Test Item Value Reference Range Comments WHITE BLOOD CELL COUNT (BEAKER) (test bzxn=093) 27.8 K/ L 3.5-10.5 RED BLOOD CELL COUNT (BEAKER) (test sayp=600) 3.10 M/ L 3.93-5.22 HEMOGLOBIN (BEAKER) (test roph=401) 8.0 GM/DL 11.2-15.7 HEMATOCRIT (BEAKER) (test soef=761) 24.2 % 34.1-44.9 MEAN CORPUSCULAR VOLUME (BEAKER) (test pqgo=162) 78.1 fL 79.4-94.8 MEAN CORPUSCULAR HEMOGLOBIN (BEAKER) (test 25.8 pg 25.6-32.2 ryar=770) MEAN CORPUSCULAR HEMOGLOBIN CONC (BEAKER) (test 33.1 GM/DL 32.2-35.5 ceol=947) RED CELL DISTRIBUTION WIDTH (BEAKER) (test 16.7 % 11.7-14.4 fkwv=115) PLATELET COUNT (BEAKER) (test ylpp=329) 189 K/CU MM 150-450 MEAN PLATELET VOLUME (BEAKER) (test skdr=733) 11.0 fL 9.4-12.3 NUCLEATED RED BLOOD CELLS (BEAKER) (test 0 /100 WBC 0-0 kbzz=617) NEUTROPHILS RELATIVE PERCENT (BEAKER) (test 86 % rsug=871) LYMPHOCYTES RELATIVE PERCENT (BEAKER) (test 5 % kbfc=186) MONOCYTES RELATIVE PERCENT (BEAKER) (test 6 % bumu=762) EOSINOPHILS RELATIVE PERCENT (BEAKER) (test 0 % knja=215) BASOPHILS RELATIVE PERCENT (BEAKER) (test 0 % vldl=730) NEUTROPHILS ABSOLUTE COUNT (BEAKER) (test 23.73 K/ L 1.56-6.13 vwzt=561) LYMPHOCYTES ABSOLUTE COUNT (BEAKER) (test 1.32 K/ L 1.18-3.74 giqh=164) MONOCYTES ABSOLUTE COUNT (BEAKER) (test 1.68 K/ L 0.24-0.36 gkte=991) EOSINOPHILS ABSOLUTE COUNT (BEAKER) (test 0.00 K/ L 0.04-0.36 gmtw=178) BASOPHILS ABSOLUTE COUNT (BEAKER) (test 0.04 K/ L 0.01-0.08 xejd=281) IMMATURE GRANULOCYTES-RELATIVE PERCENT (BEAKER) 4 % 0-1 (test fpdi=1888) CALCIUM, [id number] 04:51:00 Test Item Value Reference Range Comments CALCIUM IONIZED (BEAKER) (test tzhk=790) 1.12 mmol/L 1.12-1.27 PH, BLOOD (BEAKER) (test yucy=6180) 7.35 PROTHROMBIN TIME/[id number] 04:43:00 Test Item Value Reference Range Comments PROTIME (BEAKER) (test ojaj=257) 30.3 seconds 11.9-14.2 INR (BEAKER) (test fpha=409) 3.1 <=5.9 Effective 04/25/2019: PT Reference Range ChangeNew: 11.9-14.2 Previous: 11.7- 14.7RECOMMENDED COUMADIN/WARFARIN INR THERAPY RANGESSTANDARD DOSE: 2.0-3.0 Includes: PROPHYLAXIS for venous thrombosis, systemic embolization; TREATMENT for venous thrombosis and/or pulmonary embolus.HIGH RISK: Target INR is2.5-3.5 for patients wiht mechanical heart valves.[id number] 04:43:00 Test Item Value Reference Range Comments FIBRINOGEN LEVEL (BEAKER) (test cocp=297) 265 mg/dl 225-434 [id number] 04:43:00 Test Item Value Reference Range Comments PROTIME (BEAKER) (test jiaq=432) 30.3 seconds 11.9-14.2 INR (BEAKER) (test grqq=285) 3.1 <=5.9 PARTIAL THROMBOPLASTIN TIME (BEAKER) (test 33.7 seconds 22.5-36.0 ggtq=028) Effective 04/25/2019: PT Reference Range ChangeNew: 11.9-14.2 Previous: 11.7- 14.7RECOMMENDED COUMADIN/WARFARIN INR THERAPY RANGESSTANDARD DOSE: 2.0-3.0 Includes: PROPHYLAXIS for venous thrombosis, systemic embolization; TREATMENT for venous thrombosis and/or pulmonary embolus.HIGH RISK: Target INR is2.5-3.5 for patients wiht mechanical heart valves.ACUTE HEPATITIS [id number] 06:15: 00 Test Item Value Reference Range Comments AB HEPATITIS A IGM (test Negative Negative code=HAVMAB) AG HEPATITIS B SURFACE (test Negative Negative code=HBSAG) AB HEPATITIS B CORE IGM Negative Negative (test code=HBCMAB) AB HEPATITIS C (test <0.1 0.0-0.9 INFCE Result Units: s/co ratio code=HCVAB) Negative: < 0.8 Indeterminate: 0.8 - 0.9 Positive: > 0.9 The CDC recommends that a positive HCV antibody result be followed up with a HCV Nucleic Acid Amplification test (491318).Performed At: [facility] [id number] Gee Gould MD Ph:[phone] HIV 1 2 ANTIBODY [id number] 06:15:00 Test Item Value Reference Range Comments AB HIV 1 2 (test code=DBS01WZ) NON REACTIVE SCREEN NONREACTIVE AG HIV1 P24 (test code=CEO6M56) NON REACTIVE P24 NONREACTIVE - CT ABD PELVIS [id number] 12:57:00 Name: PRATIBHA JENNINGS : 1965 Age/S: 53 / F [id number] [address] Unit #: [id number] Loc: [place] [address] Phys: Bryan Orta MD Acct: [id number] Dis Date: Status : ADM IN PHONE #: [phone] Exam Date: 03/09/2019 1200 FAX #: Reason: abd pain EXAMS: CPT: [id number] CT ABD PELVIS W/CONT 66610 LOCATION: T18 EXAM: CT ABDOMEN AND PELVIS [...] CTDI: DLP: PAGE 1 Signed ReportBASIC METABOLIC [id number] 07:37:00 Test Item Value Reference Range Comments [...] CALCIUM (test code=CA) 8.7 MG/DL 8.5-10.1 T4 [id number] 07:37:00 Test Item Value Reference Range Comments T4 FREE (test code=T4F) 0.70 NG/DL 0.89-1.76 THYROID STIMULATING [id number] 07:37:00 Test Item Value Reference Range Comments THYROID STIMULATING HORMONE (test code=TSH) 1.540 mcIU/ML 0.340-4.820 ACUTE HEPATITIS [id number] 07:33:00 Test Item Value Reference Range Comments AB HEPATITIS A IGM (test code=HAVMAB) AG HEPATITIS B SURFACE (test code=HBSAG) SCREEN NEGATIVE AB HEPATITIS B CORE IGM (test code=HBCMAB) AB HEPATITIS C (test code=HCVAB) RATIO <0.8 HIV 1 2 ANTIBODY [id number] 07:33:00 Test Item Value Reference Range Comments AB HIV 1 2 (test code=EWD68PN) NON REACTIVE SCREEN NONREACTIVE AG HIV1 P24 (test code=LZT1F56) NON REACTIVE P24 NONREACTIVE GLYCOSYLATED HEMOGLOBIN [id number] 07:26:00 Test Item Value Reference Range Comments GLYCOSYLATED HEMOGLOBIN (HA1C) (test 5.8 % A1C 4.2-6.3 code=GLYHGB) ESTIMATED AVERAGE GLUCOSE (test code=EAG) 120 MG/DLest CBC W/AUTO [id number] 07:21:00 Test Item Value Reference Range Comments [...] NO DIFF/SCN CRITERIA - CT HEAD/BRAIN W/O [id number] 19:39:00 Name: PRATIBHA JENNINGS [facility] : 1965 Age/S: 53 / F [address] [address] Unit #: [id number] Loc: [place] [address] Phys: Maria Morel MD Acct: [id number] Dis Date: Status : ADM IN PHONE #: [phone] Exam Date: 03/08/2019 1719 FAX #: Reason: near syncope EXAMS: CPT: [id number] CT HEAD/BRAIN W/O CONT 84728 CT head History: near syncope Comparison: None [...] RT(R)(CT) CTDI: DLP: Trnscb Date/Time: 03/08/2019 (1938) [email or web address] Orig Print D/T: S: 03/08/2019 (1941) CTDI: DLP: PAGE 1 Signed ReportDRUGS OF ABUSE SCREEN [id number] 19:12:00 Test Item Value Reference Range Comments [...] code=METHAURN) NEGATIVE SCcutoff <300 NG/ML COMPREHENSIVE METABOLIC [id number] 17:26:00 Test Item Value Reference Range Comments [...] PHOSPHATASE TOTAL (test 103 Unit/L 45-117 code=ALKP) [id number] 17:26:00 Test Item Value Reference Range Comments MAGNESIUM (test code=MAG) 1.9 MG/DL 1.8-2.4 [id number] 17:26:00 Test Item Value Reference Range Comments ALCOHOL (test code=ALC) < 3 MG/DL 0-10 COMPREHENSIVE METABOLIC [id number] 17:21:00 Test Item Value Reference Range Comments [...] ALKALINE PHOSPHATASE TOTAL (test code=ALKP) Unit/L 45-117 [id number] 17:21:00 Test Item Value Reference Range Comments MAGNESIUM (test code=MAG) MG/DL 1.8-2.4 [id number] 17:21:00 Test Item Value Reference Range Comments ALCOHOL (test code=ALC) MG/DL 0-10 CBC W/AUTO [id number] 17:08:00 Test Item Value Reference Range Comments [...] NO DIFF/SCN CRITERIA - XR CHEST 1 [id number] 16:33:00 Name: PRATIBHA JENNINGS [place] : 1965 Age/S: 53 / F [id number] Unit #: [id number] Loc: [place] [address] Phys: Maria Morel MD Acct: [id number] Dis Date: Status: PRE ER PHONE #: [phone] Exam Date: 03/08/2019 1622 FAX #: Reason: near syncope EXAMS: CPT: [id number] XR CHEST 1 V 78515 Fluoro Time: DAP (Gy m2): Air Kerma [...] Lungs are clear. No acute abnormality. at 1633 Reported and signed by: Donavon Blanco M.D. CC: Lou Sharp MD; aMria Morel MD PAGE 1 Signed Report Name: PRATIBHA JENNINGS [place] : 1965 Age/S: 53 / F [address] [address] Unit #: [id number] Loc: [place] [address] Phys: Maria Morel MD Acct: [id number] Dis Date: Status: PRE ER PHONE #: [phone] Exam Date: 03/08/2019 1627 FAX #: Reason: near syncope EXAMS: CPT: [id number] XR CHEST 1 V 62508 Fluoro Time: DAP (Gy m2 ): Air Kerma (mGy): <Continued>Technologist: Nanette Gordon RT(R)(CT) Trnscb Date/Time: 03/08/2019 (7713 ) t.[email or web address].[email or web address] Orig Print D/T: S: 03/08/2019 (4295) PAGE 2 Signed Report
== END 2019-10-06 01:41 | disposition short-term general hospital (02) ==
LOC: ER 17:50
PROC: 05HP33Z Insertion of Infusion Device into Right External Jugular Vein, Percutaneous Approach (ICD-10-PCS; principal; 2019-10-06)
PROC: 0BH17EZ Insertion of Endotracheal Airway into Trachea, Via Natural or Artificial Opening (ICD-10-PCS; 2019-10-06)
DX: J18.9 Pneumonia, unspecified organism (principal); K72.90 Hepatic failure, unspecified without coma; K80.20 Calculus of gallbladder without cholecystitis without obstruction; N17.9 Acute kidney failure, unspecified; F17.210 Nicotine dependence, cigarettes, uncomplicated; I10 Essential (primary) hypertension; E78.5 Hyperlipidemia, unspecified; F90.9 Attention-deficit hyperactivity disorder, unspecified type; Z91.048 Other nonmedicinal substance allergy status
CPT/HCPCS: 31500; 36415; 51702; 70450; 71045; 71250; 74176; 76705; 80048; 80076; 80307; 80329; 81003; 82140; 82805; 83605; 83690; 83735; 83880; 84145; 84484; 85025; 85610; 87040; 93005; 96365; 96366; 96367; 96368; 96375; 99285; J0132; J0330; J0692; J2704; J3010; J7030; J7040

== ENCOUNTER 2019-10-20 21:51 | Observation (INO) | payer BC ==
--- OUTSIDE RECORDS SUMMARY | 2019-10-20 21:57 | XMS REPORT ---
:1965 [facility] Address [address] [place] [address] Care Team Providers Name Role Phone DOM RODRIGUEZ Unavailable Unavailable Payers Payer Name Policy Type Policy Number Effective Date Expiration Date Problems This patient has no known problems. Allergies, Adverse Reactions, Alerts Allergy Allergy Status Severity Reaction(s) Onset Inactive Treating Comments Name Type Date Date Clinician iodine DA Active SC 2014-06 00:00:0 0 Medications This patient has no known medications. Results Test Description Test Time Test Comments Text Results Atomic Results Result Comments CBC W/PLT COUNT & AUTO DIFFERENTIAL 2019-10-15 11:31:00 Test Item Value Reference Range Comments WHITE BLOOD CELL COUNT (BEAKER) (test jthj=284) 13.8 K/ L 3.5-10.5 RED BLOOD CELL COUNT (BEAKER) (test znbi=332) 4.18 M/ L 3.93-5.22 HEMOGLOBIN (BEAKER) (test uwvo=823) 10.8 GM/DL 11.2-15.7 HEMATOCRIT (BEAKER) (test cjuq=256) 34.9 % 34.1-44.9 MEAN CORPUSCULAR VOLUME (BEAKER) (test osqn=246) 83.5 fL 79.4-94.8 MEAN CORPUSCULAR HEMOGLOBIN (BEAKER) (test 25.8 pg 25.6-32.2 eduh=821) MEAN CORPUSCULAR HEMOGLOBIN CONC (BEAKER) (test 30.9 GM/DL 32.2-35.5 evfv=691) RED CELL DISTRIBUTION WIDTH (BEAKER) (test 19.3 % 11.7-14.4 sjtf=307) PLATELET COUNT (BEAKER) (test xjpq=826) 364 K/CU MM 150-450 Post vortex MEAN PLATELET VOLUME (BEAKER) (test vtxn=952) 10.3 fL 9.4-12.3 NUCLEATED RED BLOOD CELLS (BEAKER) (test afpy=342) 0 /100 WBC 0-0 NEUTROPHILS RELATIVE PERCENT (BEAKER) (test 74 % vxru=947) LYMPHOCYTES RELATIVE PERCENT (BEAKER) (test 16 % busu=282) MONOCYTES RELATIVE PERCENT (BEAKER) (test rxbh=592) 7 % EOSINOPHILS RELATIVE PERCENT (BEAKER) (test 1 % qlpn=683) BASOPHILS RELATIVE PERCENT (BEAKER) (test jhqg=214) 1 % NEUTROPHILS ABSOLUTE COUNT (BEAKER) (test cazv=864) 10.19 K/ L 1.56-6.13 LYMPHOCYTES ABSOLUTE COUNT (BEAKER) (test yutn=510) 2.17 K/ L 1.18-3.74 MONOCYTES ABSOLUTE COUNT (BEAKER) (test etxc=456) 1.01 K/ L 0.24-0.36 EOSINOPHILS ABSOLUTE COUNT (BEAKER) (test vaea=940) 0.18 K/ L 0.04-0.36 BASOPHILS ABSOLUTE COUNT (BEAKER) (test mbaf=813) 0.08 K/ L 0.01-0.08 IMMATURE GRANULOCYTES-RELATIVE PERCENT (BEAKER) 1 % 0-1 (test naxc=1085) POCT-GLUCOSE [id number] 08:15:00 Test Item Value Reference Range Comments POC-GLUCOSE METER (BEAKER) 87 mg/dL 70-110 : TESTED AT [place] [id number] [facility] (test xkuk=3385) [facility], [id number]: Dust Collector Treater/Commodity Management Specialist [id number] for GINNY DARNELL [id number] 08:08:00 Test Item Value Reference Range Comments MAGNESIUM (BEAKER) (test 1.6 mg/dL 1.6-2.6 Specimen slightly hemolyzed fcao=366) COMPREHENSIVE METABOLIC [id number] 08:08:00 Test Item Value Reference Range Comments TOTAL PROTEIN (BEAKER) 6.9 gm/dL 6.0-8.3 Specimen slightly (test ylhb=178) hemolyzed ALBUMIN (BEAKER) (test 3.7 g/dL 3.5-5.0 Specimen slightly lfli=6973) hemolyzed ALKALINE PHOSPHATASE 140 U/L 40-150 (BEAKER) (test lnvv=099) BILIRUBIN TOTAL (BEAKER) 1.0 mg/dL 0.2-1.2 Specimen slightly (test apyo=838) hemolyzed SODIUM (BEAKER) (test 137 meq/L 136-145 nlgs=893) POTASSIUM (BEAKER) (test 4.4 meq/L 3.5-5.1 Specimen slightly jbrv=588) hemolyzed CHLORIDE (BEAKER) (test 109 meq/L 98-107 bqvk=702) CO2 (BEAKER) (test 20 meq/L 22-29 zdet=524) BLOOD UREA NITROGEN 11 mg/dL 7-21 (BEAKER) (test ltgn=262) CREATININE (BEAKER) (test 0.74 mg/dL 0.57-1.25 Specimen slightly pkci=991) hemolyzed GLUCOSE RANDOM (BEAKER) 99 mg/dL 70-105 (test rrsp=700) CALCIUM (BEAKER) (test 9.2 mg/dL 8.4-10.2 xsdo=381) AST (SGOT) (BEAKER) (test 92 U/L 5-34 Specimen slightly lasn=172) hemolyzed ALT (SGPT) (BEAKER) (test 273 U/L 6-55 Specimen slightly sqcu=396) hemolyzed EGFR (BEAKER) (test 81 mL/min/1.73 sq m ESTIMATED GFR IS NOT bcpo=9980) ACCURATE CREATININE CLEARANCE IN PREDICTING GLOMERULAR FILTRATION RATE. ESTIMATED GFR IS NOT APPLICABLE FOR DIALYSIS PATIENTS. POCT-GLUCOSE [id number] 23:32:00 Test Item Value Reference Range Comments POC-GLUCOSE METER (BEAKER) 98 mg/dL 70-110 : TESTED AT [facility] [address] [facility] (test toel=7180) [facility], [address]: Dust Collector Treater/Commodity Management Specialist [phone] for PATEL ROSAS POCT-GLUCOSE [id number] 17:52:00 Test Item Value Reference Range Comments POC-GLUCOSE METER (BEAKER) 88 mg/dL 70-110 : TESTED AT [facility] [address] [facility] (test rmbu=9257) [facility], [address]: Dust Collector Treater/Commodity Management Specialist [phone] for DOBBINS, ZAK POCT-GLUCOSE [id number] 11:53:00 Test Item Value Reference Range Comments POC-GLUCOSE METER (BEAKER) 161 mg/dL 70-110 : TESTED AT [facility] [address] [facility] (test qceg=7306) [facility], [address]: Dust Collector Treater/Commodity Management Specialist [id number] for ZAK MONTIEL BRONCHIAL CULTURE + GRAM [id number] 10:38:00 Test Item Value Reference Range Comments CULTURE (BEAKER) (test ohem=7057) See comment GRAM STAIN RESULT (BEAKER) (test 2+ White blood cells seen qzgq=8233) GRAM STAIN RESULT (BEAKER) (test No organisms seen ryus=072753) 1+ YeastRAD, CHEST, 1 VIEW, NON [id number] 08:59:00Reason for exam:-> endotracheal intubationShould this be performed at the bedside?->YesFINAL REPORT Chest, one view History: Respiratory failure Comparison: 10/13/2019 Findings:Moderate bilateral interstitial opacities, similar to previous examination. This could represent atypical infectious process or pulmonary edema. Normal size heart. No pleural effusion or pneumothorax. Postsurgical changes of recent open reduction/internal fixation of the left clavicle. Impression:No significant interval change. Signed: [facility] Verified Date/Time: 10/14/2019 08:59:12 Reading Location: [address] Transitional Reading Room [id number] 08:38:00 Test Item Value Reference Range Comments MAGNESIUM (BEAKER) (test 2.0 mg/dL 1.6-2.6 Specimen slightly hemolyzed ohuv=343) COMPREHENSIVE METABOLIC [id number] 08:38:00 Test Item Value Reference Range Comments TOTAL PROTEIN (BEAKER) 7.5 gm/dL 6.0-8.3 Specimen slightly (test jlnl=569) hemolyzed ALBUMIN (BEAKER) (test 3.8 g/dL 3.5-5.0 Specimen slightly zkld=8721) hemolyzed ALKALINE PHOSPHATASE 156 U/L 40-150 (BEAKER) (test mfbm=749) BILIRUBIN TOTAL (BEAKER) 1.1 mg/dL 0.2-1.2 Specimen slightly (test umau=471) hemolyzed SODIUM (BEAKER) (test 139 meq/L 136-145 zbdy=009) POTASSIUM (BEAKER) (test 3.8 meq/L 3.5-5.1 Specimen slightly dsrs=251) hemolyzed CHLORIDE (BEAKER) (test 110 meq/L 98-107 uzin=906) CO2 (BEAKER) (test 19 meq/L 22-29 fbuq=124) BLOOD UREA NITROGEN 13 mg/dL 7-21 (BEAKER) (test jcph=631) CREATININE (BEAKER) (test 0.79 mg/dL 0.57-1.25 Specimen slightly mrnm=623) hemolyzed GLUCOSE RANDOM (BEAKER) 85 mg/dL 70-105 (test cbxg=989) CALCIUM (BEAKER) (test 9.4 mg/dL 8.4-10.2 zdcb=409) AST (SGOT) (BEAKER) (test 55 U/L 5-34 Specimen slightly szcl=064) hemolyzed ALT (SGPT) (BEAKER) (test 307 U/L 6-55 Specimen slightly skkq=063) hemolyzed EGFR (BEAKER) (test 76 mL/min/1.73 sq m ESTIMATED GFR IS NOT wrcn=6423) ACCURATE CREATININE CLEARANCE IN PREDICTING GLOMERULAR FILTRATION RATE. ESTIMATED GFR IS NOT APPLICABLE FOR DIALYSIS PATIENTS. CBC W/PLT COUNT & AUTO [id number] 08:23:00 Test Item Value Reference Range Comments WHITE BLOOD CELL COUNT (BEAKER) (test hvmd=882) 20.5 K/ L 3.5-10.5 RED BLOOD CELL COUNT (BEAKER) (test mvfe=656) 4.51 M/ L 3.93-5.22 HEMOGLOBIN (BEAKER) (test nuxe=503) 11.7 GM/DL 11.2-15.7 HEMATOCRIT (BEAKER) (test kcub=530) 37.7 % 34.1-44.9 MEAN CORPUSCULAR VOLUME (BEAKER) (test jvim=665) 83.6 fL 79.4-94.8 MEAN CORPUSCULAR HEMOGLOBIN (BEAKER) (test 25.9 pg 25.6-32.2 fncj=805) MEAN CORPUSCULAR HEMOGLOBIN CONC (BEAKER) (test 31.0 GM/DL 32.2-35.5 ovhm=138) RED CELL DISTRIBUTION WIDTH (BEAKER) (test 19.5 % 11.7-14.4 tlax=541) PLATELET COUNT (BEAKER) (test hijq=138) 354 K/CU MM 150-450 MEAN PLATELET VOLUME (BEAKER) (test lglu=278) 10.6 fL 9.4-12.3 NUCLEATED RED BLOOD CELLS (BEAKER) (test 0 /100 WBC 0-0 bpgw=290) NEUTROPHILS RELATIVE PERCENT (BEAKER) (test 77 % ucih=120) LYMPHOCYTES RELATIVE PERCENT (BEAKER) (test 14 % awfg=758) MONOCYTES RELATIVE PERCENT (BEAKER) (test 7 % jeym=847) EOSINOPHILS RELATIVE PERCENT (BEAKER) (test 1 % lrdn=928) BASOPHILS RELATIVE PERCENT (BEAKER) (test 0 % xkov=434) NEUTROPHILS ABSOLUTE COUNT (BEAKER) (test 15.78 K/ L 1.56-6.13 btvp=908) LYMPHOCYTES ABSOLUTE COUNT (BEAKER) (test 2.88 K/ L 1.18-3.74 lcjz=969) MONOCYTES ABSOLUTE COUNT (BEAKER) (test 1.45 K/ L 0.24-0.36 nxrf=195) EOSINOPHILS ABSOLUTE COUNT (BEAKER) (test 0.10 K/ L 0.04-0.36 stoh=842) BASOPHILS ABSOLUTE COUNT (BEAKER) (test 0.08 K/ L 0.01-0.08 perd=193) IMMATURE GRANULOCYTES-RELATIVE PERCENT (BEAKER) 1 % 0-1 (test hsuf=2873) POCT-GLUCOSE [id number] 07:07:00 Test Item Value Reference Range Comments POC-GLUCOSE METER (BEAKER) 84 mg/dL 70-110 : TESTED AT [facility] [address] [facility] (test uzua=6682) [facility], [address]: Dust Collector Treater/Commodity Management Specialist [id number] for Kamille Fleming BLOOD GAS, [id number] 04:38:00 Test Item Value Reference Range Comments PH ARTERIAL (BEAKER) (test rlsx=571) 7.47 7.35-7.45 PCO2 ARTERIAL (BEAKER) (test idho=745) 30 mmHg 35-45 PO2 ARTERIAL (BEAKER) (test dpdz=641) 120 mmHg 80-90 O2 SATURATION ARTERIAL (BEAKER) (test nuzy=352) 98.5 % 96.0-97.0 HCO3 ARTERIAL (BEAKER) (test nnyq=509) 21 mmol/L 21-29 BASE EXCESS ARTERIAL (BEAKER) (test dvmx=844) -1.2 mmol/L -2.0-3.0 PATIENT TEMPERATURE (BEAKER) (test olzm=8236) 37.9 C FIO2 (BEAKER) (test xtwa=0049) 36.0 % POCT-GLUCOSE [id number] 01:19:00 Test Item Value Reference Range Comments POC-GLUCOSE METER (BEAKER) 152 mg/dL 70-110 : TESTED AT [address] (test kchr=1587) [facility], [address]: Dust Collector Treater/Commodity Management Specialist [id number] for Kamille Fleming BLOOD [id number] 19:01:00 Test Item Value Reference Range Comments CULTURE (BEAKER) (test vdre=0937) No growth in 5 days POCT-GLUCOSE [id number] 18:11:00 Test Item Value Reference Range Comments POC-GLUCOSE METER (BEAKER) 82 mg/dL 70-110 : TESTED AT [address] (test ywcy=5686) [facility], [address]: Dust Collector Treater/Commodity Management Specialist [phone] for ZAK MONTIEL POCT-GLUCOSE [id number] 12:34:00 Test Item Value Reference Range Comments POC-GLUCOSE METER (BEAKER) 87 mg/dL 70-110 : TESTED AT [address] (test qxyt=1285) [facility], [address]: Dust Collector Treater/Commodity Management Specialist [id number] for GIDEON WADDELL CBC W/PLT COUNT & AUTO [id number] 09:13:00 Test Item Value Reference Range Comments WHITE BLOOD CELL COUNT (BEAKER) (test pluq=748) 13.4 K/ L 3.5-10.5 RED BLOOD CELL COUNT (BEAKER) (test elpb=202) 3.13 M/ L 3.93-5.22 HEMOGLOBIN (BEAKER) (test hask=954) 8.0 GM/DL 11.2-15.7 HEMATOCRIT (BEAKER) (test fjtz=172) 25.9 % 34.1-44.9 MEAN CORPUSCULAR VOLUME (BEAKER) (test yxej=008) 82.7 fL 79.4-94.8 MEAN CORPUSCULAR HEMOGLOBIN (BEAKER) (test 25.6 pg 25.6-32.2 rlnf=711) MEAN CORPUSCULAR HEMOGLOBIN CONC (BEAKER) (test 30.9 GM/DL 32.2-35.5 msrh=369) RED CELL DISTRIBUTION WIDTH (BEAKER) (test 20.0 % 11.7-14.4 htwy=740) PLATELET COUNT (BEAKER) (test beel=220) 155 K/CU MM 150-450 MEAN PLATELET VOLUME (BEAKER) (test ncrb=501) 12.0 fL 9.4-12.3 NUCLEATED RED BLOOD CELLS (BEAKER) (test 0 /100 WBC 0-0 klwi=089) NEUTROPHILS RELATIVE PERCENT (BEAKER) (test 75 % sfyd=625) LYMPHOCYTES RELATIVE PERCENT (BEAKER) (test 15 % plen=697) MONOCYTES RELATIVE PERCENT (BEAKER) (test 7 % kmhw=036) EOSINOPHILS RELATIVE PERCENT (BEAKER) (test 2 % sxsu=530) BASOPHILS RELATIVE PERCENT (BEAKER) (test 0 % wgbg=223) NEUTROPHILS ABSOLUTE COUNT (BEAKER) (test 10.02 K/ L 1.56-6.13 rjsc=830) LYMPHOCYTES ABSOLUTE COUNT (BEAKER) (test 1.95 K/ L 1.18-3.74 gfjc=954) MONOCYTES ABSOLUTE COUNT (BEAKER) (test 0.94 K/ L 0.24-0.36 sgzj=356) EOSINOPHILS ABSOLUTE COUNT (BEAKER) (test 0.23 K/ L 0.04-0.36 wzbh=792) BASOPHILS ABSOLUTE COUNT (BEAKER) (test 0.05 K/ L 0.01-0.08 nvmm=638) IMMATURE GRANULOCYTES-RELATIVE PERCENT (BEAKER) 1 % 0-1 (test pdyy=7818) [id number] 06:55:00 Test Item Value Reference Range Comments MAGNESIUM (BEAKER) (test csym=165) 1.8 mg/dL 1.6-2.6 COMPREHENSIVE METABOLIC [id number] 06:55:00 Test Item Value Reference Range Comments TOTAL PROTEIN (BEAKER) 5.7 gm/dL 6.0-8.3 (test cfhw=401) ALBUMIN (BEAKER) (test 3.1 g/dL 3.5-5.0 bjev=7900) ALKALINE PHOSPHATASE 130 U/L 40-150 (BEAKER) (test bdsc=046) BILIRUBIN TOTAL (BEAKER) 1.0 mg/dL 0.2-1.2 (test ganr=782) SODIUM (BEAKER) (test 142 meq/L 136-145 gxpd=559) POTASSIUM (BEAKER) (test 3.6 meq/L 3.5-5.1 pbdt=294) CHLORIDE (BEAKER) (test 116 meq/L 98-107 picv=680) CO2 (BEAKER) (test 21 meq/L 22-29 wzit=535) BLOOD UREA NITROGEN 18 mg/dL 7-21 (BEAKER) (test yyan=065) CREATININE (BEAKER) (test 0.72 mg/dL 0.57-1.25 lvba=074) GLUCOSE RANDOM (BEAKER) 92 mg/dL 70-105 (test fkvf=760) CALCIUM (BEAKER) (test 8.5 mg/dL 8.4-10.2 bjvq=537) AST (SGOT) (BEAKER) (test 39 U/L 5-34 ucal=952) ALT (SGPT) (BEAKER) (test 345 U/L 6-55 jxbk=039) EGFR (BEAKER) (test 84 mL/min/1.73 sq m ESTIMATED GFR IS NOT hsmx=1527) ACCURATE CREATININE CLEARANCE IN PREDICTING GLOMERULAR FILTRATION RATE. ESTIMATED GFR IS NOT APPLICABLE FOR DIALYSIS PATIENTS. BLOOD GAS, [id number] 06:41:00 Test Item Value Reference Range Comments PH ARTERIAL (BEAKER) (test yrue=101) 7.42 7.35-7.45 PCO2 ARTERIAL (BEAKER) (test vewv=046) 32 mmHg 35-45 PO2 ARTERIAL (BEAKER) (test jsgi=886) 77 mmHg 80-90 O2 SATURATION ARTERIAL (BEAKER) (test waoy=407) 95.8 % 96.0-97.0 HCO3 ARTERIAL (BEAKER) (test msvn=246) 20 mmol/L 21-29 BASE EXCESS ARTERIAL (BEAKER) (test bjyw=711) -3.5 mmol/L -2.0-3.0 PATIENT TEMPERATURE (BEAKER) (test rgwh=9747) 37.0 C FIO2 (BEAKER) (test ouwi=8551) 28.0 % RAD, CHEST, 1 VIEW, NON [id number] 04:40:00Reason for exam:-> endotracheal intubationShould this be performed at the bedside?->YesFINAL REPORT RAD, CHEST, 1 VIEW, NON DEPT INDICATION: endotracheal intubationCOMPARISON: Prior day's exam FINDINGS: Portable frontal view of the chest. IMPRESSION: Support Lines: Interval extubation and removal of the previously seen enteric tube. Unchanged positioning of the spinal cord stimulator leads overlying the thoracic spine.Lungs and pleura: Unchanged airspace and pleural opacities. No pneumothorax.Heart and mediastinum : Stable contours. Additional findings: Stable surgical changes of the left clavicle.. Signed: Donnie Rodríguez MDReport Verified Date/Time: 10/13/2019 04:40:52 POCT-GLUCOSE [id number] 00:24:00 Test Item Value Reference Range Comments POC-GLUCOSE METER (BEAKER) 107 mg/dL 70-110 : TESTED AT [address] (test kueq=4008) [place] [address]: Dust Collector Treater/Commodity Management Specialist [id number] for Dianna Lopez RAD, MANDIBLE, MIN 4 [id number] 17:22:00Reason for exam:->Liver Transplant EvaluationShould this be performed at the bedside?->YesFINAL REPORT Technique: Six views of the mandible dated 2018. HISTORY: Liver transplant evaluation. COMPARISON: None IMPRESSION: No lytic or sclerotic lesion. No displaced fracture. The temporomandibular joints are not well-visualized likely secondary to difficulty with patient positioning. No radiodense foreign body or subcutaneous emphysema. Signed: Smiley Villarreal MDReport Verified Date/Time: 10/12/2019 17:22:01 Reading Location: [facility] Reading Room POCT-GLUCOSE [id number] 12:42:00 Test Item Value Reference Range Comments POC-GLUCOSE METER (BEAKER) 119 mg/dL 70-110 : TESTED AT [address] (test ehfh=4874) [place] [address]: Dust Collector Treater/Commodity Management Specialist [id number] for NicholsTyler del toro RAD, CHEST, 1 VIEW, NON [id number] 09:14:00Reason for exam:-> endotracheal intubationShould this be performed at the bedside?->YesFINAL REPORT RAD, CHEST, 1 VIEW, NON DEPT INDICATION: endotracheal intubationCOMPARISON: Prior day's exam FINDINGS: Portable frontal view of the chest. IMPRESSION: Limited by underpenetration.Support Lines: Stable. Lungs and pleura: Coarsened interstitial markings unchanged from the prior examination. No new consolidation or effusion. No pneumothorax.Heart and mediastinum: Stable contours. Stable positioning of spinal stimulator hardware.Additional findings: None. Signed: JR Gramajo Robert MDReport Verified Date/Time: 10/12/2019 09:14:48 Reading Location: [facility] Radiology Reading Room Electronically signed by: TYLER GRAMAJO on 09:14 [id number] 04:39:00 Test Item Value Reference Range Comments MAGNESIUM (BEAKER) (test jbzu=530) 1.8 mg/dL 1.6-2.6 COMPREHENSIVE METABOLIC [id number] 04:39:00 Test Item Value Reference Range Comments TOTAL PROTEIN (BEAKER) 5.1 gm/dL 6.0-8.3 (test oced=804) ALBUMIN (BEAKER) (test 2.8 g/dL 3.5-5.0 zgjc=4603) ALKALINE PHOSPHATASE 138 U/L 40-150 (BEAKER) (test jmmg=570) BILIRUBIN TOTAL (BEAKER) 0.8 mg/dL 0.2-1.2 (test krmq=677) SODIUM (BEAKER) (test 143 meq/L 136-145 xtxd=815) POTASSIUM (BEAKER) (test 3.6 meq/L 3.5-5.1 phms=541) CHLORIDE (BEAKER) (test 117 meq/L 98-107 xzay=720) CO2 (BEAKER) (test 22 meq/L 22-29 wsqd=415) BLOOD UREA NITROGEN 23 mg/dL 7-21 (BEAKER) (test wobh=492) CREATININE (BEAKER) (test 0.80 mg/dL 0.57-1.25 fkcm=511) GLUCOSE RANDOM (BEAKER) 117 mg/dL 70-105 (test fwwu=296) CALCIUM (BEAKER) (test 8.2 mg/dL 8.4-10.2 zxqk=098) AST (SGOT) (BEAKER) (test 48 U/L 5-34 hfnf=424) ALT (SGPT) (BEAKER) (test 429 U/L 6-55 tzzo=400) EGFR (BEAKER) (test 74 mL/min/1.73 sq m ESTIMATED GFR IS NOT vspt=6474) ACCURATE CREATININE CLEARANCE IN PREDICTING GLOMERULAR FILTRATION RATE. ESTIMATED GFR IS NOT APPLICABLE FOR DIALYSIS PATIENTS. CBC W/PLT COUNT & AUTO [id number] 04:18:00 Test Item Value Reference Range Comments WHITE BLOOD CELL COUNT (BEAKER) (test twaa=555) 14.5 K/ L 3.5-10.5 RED BLOOD CELL COUNT (BEAKER) (test ilim=893) 3.12 M/ L 3.93-5.22 HEMOGLOBIN (BEAKER) (test xloa=350) 8.0 GM/DL 11.2-15.7 HEMATOCRIT (BEAKER) (test dxjp=136) 26.0 % 34.1-44.9 MEAN CORPUSCULAR VOLUME (BEAKER) (test rwif=020) 83.3 fL 79.4-94.8 MEAN CORPUSCULAR HEMOGLOBIN (BEAKER) (test 25.6 pg 25.6-32.2 yloc=378) MEAN CORPUSCULAR HEMOGLOBIN CONC (BEAKER) (test 30.8 GM/DL 32.2-35.5 fgbm=866) RED CELL DISTRIBUTION WIDTH (BEAKER) (test 20.3 % 11.7-14.4 ptrr=128) PLATELET COUNT (BEAKER) (test jubd=839) 158 K/CU MM 150-450 MEAN PLATELET VOLUME (BEAKER) (test pkld=869) 10.7 fL 9.4-12.3 NUCLEATED RED BLOOD CELLS (BEAKER) (test 0 /100 WBC 0-0 zxis=930) NEUTROPHILS RELATIVE PERCENT (BEAKER) (test 69 % rics=438) LYMPHOCYTES RELATIVE PERCENT (BEAKER) (test 19 % kccl=693) MONOCYTES RELATIVE PERCENT (BEAKER) (test 7 % krqo=660) EOSINOPHILS RELATIVE PERCENT (BEAKER) (test 4 % mcdy=467) BASOPHILS RELATIVE PERCENT (BEAKER) (test 0 % kcaa=937) NEUTROPHILS ABSOLUTE COUNT (BEAKER) (test 10.05 K/ L 1.56-6.13 ehmf=560) LYMPHOCYTES ABSOLUTE COUNT (BEAKER) (test 2.73 K/ L 1.18-3.74 vakk=358) MONOCYTES ABSOLUTE COUNT (BEAKER) (test 0.95 K/ L 0.24-0.36 bivn=743) EOSINOPHILS ABSOLUTE COUNT (BEAKER) (test 0.55 K/ L 0.04-0.36 bllv=448) BASOPHILS ABSOLUTE COUNT (BEAKER) (test 0.03 K/ L 0.01-0.08 sozf=132) IMMATURE GRANULOCYTES-RELATIVE PERCENT (BEAKER) 1 % 0-1 (test ayqf=7548) BLOOD GAS, [id number] 04:17:00 Test Item Value Reference Range Comments PH ARTERIAL (BEAKER) (test vppt=623) 7.38 7.35-7.45 PCO2 ARTERIAL (BEAKER) (test hnjy=488) 38 mmHg 35-45 PO2 ARTERIAL (BEAKER) (test ouox=336) 95 mmHg 80-90 O2 SATURATION ARTERIAL (BEAKER) (test eonb=845) 96.9 % 96.0-97.0 HCO3 ARTERIAL (BEAKER) (test ndkb=138) 22 mmol/L 21-29 BASE EXCESS ARTERIAL (BEAKER) (test kuch=054) -2.8 mmol/L -2.0-3.0 PATIENT TEMPERATURE (BEAKER) (test zxya=8465) 37.6 C FIO2 (BEAKER) (test eevf=0393) 30.0 % SPIN/CONCENTRATION [id number] 01:15:00 Test Item Value Reference Range Comments CONCENTRATION CHARGED (BEAKER) (test lgwm=6535) Done BODY FLUID CELL COUNT WITH [id number] 18:00:00 Test Item Value Reference Range Comments APPEARANCE FLUID (BEAKER) (test nedm=721) Hazy Clear COLOR FLUID (BEAKER) (test fyey=511) White Colorless, Straw RBC FLUID (BEAKER) (test idft=039) 480 /cu mm <=1 ADJUSTED WBC FLUID (BEAKER) (test kofd=2964) 1165 /cu mm <=5 LINING CELLS (BEAKER) (test jhna=5796) 35 /cu mm <=1 NEUTROPHILS FLUID (BEAKER) (test ezbr=6604) 16 % LYMPHS FLUID (BEAKER) (test jtwj=707) 4 % MONO/MACROPHAGE FLUID (BEAKER) (test yohr=052) 78 % EOSINOPHILS FLUID (BEAKER) (test glqd=711) 2 % BASO FLUID (BEAKER) (test xxkw=730) 0 % CONTAINER BODY FLUID (BEAKER) (test wvsa=7642) EDTA Tube EEG AWAKE AND [id number] 17:00:00Reason for exam:->acute encephalopathyShould this be performed at the bedside?->YesDate(s) of EE10/11/2019 DATE OF REPORT: 10/11/2019ACC: [id number] Number: [id number] Location: Inpatient ICUStart time: 10/11/2019 16:09Stop time: 10/11/2019 16: 31ICD-10: R41.82 CPT Code: 58967 HISTORY: 54 y.o. female with hypertension , chronic back pain, who presented with acute liver failure and persistent encephalopathy. MEDICATIONS THAT COULD AFFECT EEG: Fentanyl, Propofol, Hydromorphone, Dexmedetomidine, Topiramate, Famotidine TECHNICAL SUMMARY: This is a digital video-EEGrecorded with 32 input channels reviewed with bipolar and referential montages using the modified combinatorial system nomenclature. DESCRIPTION OF RECORD: During the maximally alert state, the background is symmetric and populated predominately with 1-1.5 Hz polymorphic delta and 4-7 Hz activity as well as rare faster frequencies seen. No posterior dominant rhythm or voltage frequency gradient are seen. there re intermittent epochs of brief diffuse relative background attenuation. EEG is nonreactive to external stimulation. No state changes were seen. SIGNIFICANT VIDEO EVENTS: None SIGNIFICANT ELECTROCARDIOGRAM EVENTS: None HV: Hyperventilation was not performed. PHOTIC STIMULATION: Photic stimulation was done from 1-33 Hz; no photic driving was seen; photoparoxysmal responses were absent.IMPRESSION: Abnormal EEG in Coma: 1) Generalized slowing of background rhythms, moderately severe. CLINICAL CORRELATION: Generalized slowing as seen in this record is consistent with an etiology non-specific moderately severe encephalopathy. An EEG without epileptiform discharges does not exclude the possibility of epilepsy. If the clinical suspicion of epilepsy remains, consider additional EEG recordings. Silvino Riley MDNeurophysiology Fellow Attending note: I reviewed this EEG study and I agree with the details of this report.Laina Walton MD, PhDAttending NeurophysiologistCHI [place], [place] [employer] + GRAM [id number] 15:43:00 Test Item Value Reference Range Comments CULTURE (BEAKER) (test 4+ Normal respiratory candy blpb=1497) present GRAM STAIN RESULT (BEAKER) 2+ White blood cells seen (test puig=3734) GRAM STAIN RESULT (BEAKER) 0-5 epithelial cells (test upnu=79165) GRAM STAIN RESULT (BEAKER) 1+ gram positive rods (test eeyb=20331) GRAM STAIN RESULT (BEAKER) <1+ yeast (test wrem=953236) MISCELLANEOUS LAB [id number] 08:34:00 Test Item Value Reference Range Comments SCAN RESULT (test fphw=3567692) RAD, CHEST, 1 VIEW, NON [id number] 07:51:00Reason for exam:-> endotracheal intubationShould this be performed at the bedside?->YesFINAL REPORT RAD, CHEST, 1 VIEW, NON DEPT INDICATION: endotracheal intubationCOMPARISON: Prior day's exam FINDINGS: Portable frontal view of the chest. IMPRESSION: Support Lines: Right IJ central venous catheter has been removed. Remaining support hardware is stable. Lungs and pleura: Coarsened interstitial markings and patchy opacification again noted bilaterally. No effusion. No pneumothorax.Heart and mediastinum: Stable contours. Stable positioning of spinal stimulator hardware.Additional findings: None. Signed: JR Gramajo Robert MDReport Verified Date/Time: 10/11/2019 07:51:10 Reading Location: [facility] Radiology Reading Room BLOOD [id number] 07:00:00 Test Item Value Reference Range Comments CULTURE (BEAKER) (test bytc=6245) No growth in 5 days BLOOD [id number] 07:00:00 Test Item Value Reference Range Comments CULTURE (BEAKER) (test atom=7053) No growth in 5 days POCT-GLUCOSE [id number] 05:51:00 Test Item Value Reference Range Comments POC-GLUCOSE METER (BEAKER) 103 mg/dL 70-110 : TESTED AT [facility] [address] (test ciod=8497) [facility], [address]: Dust Collector Treater/Commodity Management Specialist [id number] for LUTHER FREEDMAN BLOOD GAS, [id number] 04:55:00 Test Item Value Reference Range Comments PH ARTERIAL (BEAKER) (test gkcl=207) 7.36 7.35-7.45 PCO2 ARTERIAL (BEAKER) (test ftgv=373) 38 mmHg 35-45 PO2 ARTERIAL (BEAKER) (test zxsg=317) 108 mmHg 80-90 O2 SATURATION ARTERIAL (BEAKER) (test kdis=313) 97.8 % 96.0-97.0 HCO3 ARTERIAL (BEAKER) (test huyj=989) 21 mmol/L 21-29 BASE EXCESS ARTERIAL (BEAKER) (test lvic=477) -3.9 mmol/L -2.0-3.0 PATIENT TEMPERATURE (BEAKER) (test ionv=7619) 37.0 C FIO2 (BEAKER) (test ayrg=2305) 40.0 % [id number] 04:46:00 Test Item Value Reference Range Comments MAGNESIUM (BEAKER) (test znvw=240) 2.2 mg/dL 1.6-2.6 COMPREHENSIVE METABOLIC [id number] 04:46:00 Test Item Value Reference Range Comments TOTAL PROTEIN (BEAKER) 5.1 gm/dL 6.0-8.3 (test zmbo=219) ALBUMIN (BEAKER) (test 3.0 g/dL 3.5-5.0 pvhl=5848) ALKALINE PHOSPHATASE 155 U/L 40-150 (BEAKER) (test mhku=500) BILIRUBIN TOTAL (BEAKER) 0.9 mg/dL 0.2-1.2 (test qffd=454) SODIUM (BEAKER) (test 142 meq/L 136-145 gyrc=058) POTASSIUM (BEAKER) (test 4.1 meq/L 3.5-5.1 ljtn=642) CHLORIDE (BEAKER) (test 116 meq/L 98-107 zixl=386) CO2 (BEAKER) (test 23 meq/L 22-29 tzwo=021) BLOOD UREA NITROGEN 28 mg/dL 7-21 (BEAKER) (test sger=922) CREATININE (BEAKER) (test 0.89 mg/dL 0.57-1.25 xjxq=171) GLUCOSE RANDOM (BEAKER) 130 mg/dL 70-105 (test qqpx=076) CALCIUM (BEAKER) (test 8.1 mg/dL 8.4-10.2 lzcj=855) AST (SGOT) (BEAKER) (test 65 U/L 5-34 rhgj=868) ALT (SGPT) (BEAKER) (test 635 U/L 6-55 wdsb=957) EGFR (BEAKER) (test 66 mL/min/1.73 sq m ESTIMATED GFR IS NOT brhp=2795) ACCURATE CREATININE CLEARANCE IN PREDICTING GLOMERULAR FILTRATION RATE. ESTIMATED GFR IS NOT APPLICABLE FOR DIALYSIS PATIENTS. CBC W/PLT COUNT & AUTO [id number] 04:11:00 Test Item Value Reference Range Comments WHITE BLOOD CELL COUNT (BEAKER) (test kbcy=499) 15.9 K/ L 3.5-10.5 RED BLOOD CELL COUNT (BEAKER) (test opbf=858) 3.11 M/ L 3.93-5.22 HEMOGLOBIN (BEAKER) (test qzru=398) 8.1 GM/DL 11.2-15.7 HEMATOCRIT (BEAKER) (test ihqs=188) 26.0 % 34.1-44.9 MEAN CORPUSCULAR VOLUME (BEAKER) (test fmec=172) 83.6 fL 79.4-94.8 MEAN CORPUSCULAR HEMOGLOBIN (BEAKER) (test 26.0 pg 25.6-32.2 xqdj=437) MEAN CORPUSCULAR HEMOGLOBIN CONC (BEAKER) (test 31.2 GM/DL 32.2-35.5 vvcd=703) RED CELL DISTRIBUTION WIDTH (BEAKER) (test 20.2 % 11.7-14.4 jfsa=121) PLATELET COUNT (BEAKER) (test hfsx=968) 123 K/CU MM 150-450 MEAN PLATELET VOLUME (BEAKER) (test fetj=528) 11.1 fL 9.4-12.3 NUCLEATED RED BLOOD CELLS (BEAKER) (test 0 /100 WBC 0-0 bjsp=064) NEUTROPHILS RELATIVE PERCENT (BEAKER) (test 74 % wnge=016) LYMPHOCYTES RELATIVE PERCENT (BEAKER) (test 14 % qvwh=528) MONOCYTES RELATIVE PERCENT (BEAKER) (test 6 % mijt=215) EOSINOPHILS RELATIVE PERCENT (BEAKER) (test 4 % xkqj=077) BASOPHILS RELATIVE PERCENT (BEAKER) (test 0 % xcdd=124) NEUTROPHILS ABSOLUTE COUNT (BEAKER) (test 11.80 K/ L 1.56-6.13 gsmh=330) LYMPHOCYTES ABSOLUTE COUNT (BEAKER) (test 2.17 K/ L 1.18-3.74 mire=386) MONOCYTES ABSOLUTE COUNT (BEAKER) (test 0.98 K/ L 0.24-0.36 kunm=556) EOSINOPHILS ABSOLUTE COUNT (BEAKER) (test 0.66 K/ L 0.04-0.36 jwnb=434) BASOPHILS ABSOLUTE COUNT (BEAKER) (test 0.04 K/ L 0.01-0.08 xcxi=809) IMMATURE GRANULOCYTES-RELATIVE PERCENT (BEAKER) 2 % 0-1 (test nmgt=4655) POCT-GLUCOSE [id number] 23:55:00 Test Item Value Reference Range Comments POC-GLUCOSE METER (BEAKER) 118 mg/dL 70-110 : TESTED AT [address] (test wnhe=3548) [facility], [id number]: Dust Collector Treater/Commodity Management Specialist [id number] for JASMINA LUTHER POCT-GLUCOSE [id number] 17:40:00 Test Item Value Reference Range Comments POC-GLUCOSE METER (BEAKER) 142 mg/dL 70-110 : TESTED AT [address] (test luit=9007) [facility], [address]: Dust Collector Treater/Commodity Management Specialist [id number] for Karely Saleh POCT-GLUCOSE [id number] 12:30:00 Test Item Value Reference Range Comments POC-GLUCOSE METER (BEAKER) 114 mg/dL 70-110 : TESTED AT [address] (test ezck=3249) [facility], [address]: Dust Collector Treater/Commodity Management Specialist [id number] for Karely Saleh HIV-1 PCR, [id number] 11:07:00 Test Item Value Reference Range Comments HIV-1 RESULT COMPONENT (BEAKER) HIV RNA not detected HIV RNA not detected (test yojm=3705) This test uses a Real-Time Polymerase Chain Reaction (RT-PCR) methodology to detect a highly conserved region of the HIV-1 gag gene and was performed using the CHRISTINA AmpliPrep/CHRISTINA TaqMan HIV-1 test kit version 2.0 ([employer]Reportable range for this assay is 20 - 10,000,000 copies per mL (1.3 - 7.0 Log copies/mL).[id number] 08:14:00 Test Item Value Reference Range Comments T3 TOTAL (JASON) (test ggdz=934) 36 ng/dL 48-159 RAD, CHEST, 1 VIEW, NON [id number] 07:15:00Reason for exam:-> endotracheal intubationShould this be performed at the bedside?->YesFINAL REPORT RAD, CHEST, 1 VIEW, NON DEPT INDICATION: endotracheal intubationCOMPARISON: Prior day's exam FINDINGS: Portable frontal view of the chest. IMPRESSION: Limited by underpenetration.Support Lines: Stable. Lungs and pleura: Coarsened interstitial markings unchanged from prior. No new consolidation or effusion. No pneumothorax.Heart and mediastinum: Stable contours. Additional findings: None. Signed: JR Gramajo Robert MDReport Verified Date/Time: 10/10/2019 07:15:28 Reading Location: [facility] Radiology Reading Room Electronically signed by: TYLER GRAMAJO on 07:15 AMPOCT-GLUCOSE [id number] 06:26:00 Test Item Value Reference Range Comments POC-GLUCOSE METER (JASON) 103 mg/dL 70-110 : TESTED AT [address] (test cdnf=4588) [facility], [address]: Dust Collector Treater/Commodity Management Specialist [id number] for SUSIE DIAZ [id number] 05:32:00 Test Item Value Reference Range Comments D-DIMER QUANTITATIVE (JASON) (test cnne=137) > MG/L FEU <0.50 Intended Use: The D-Dimer Assay can be used to aid in the diagnosis of Deep Vein Thrombosis (DVT) and Pulmonary Embolism Disease (PED).In patients with low pre-test probability, various studies concerning STA Liatest D-dimer test have reported that with a cutoff value of 0.50 MG/L FEU, the Negative Predictive Value (NPV) regarding the exclusion of thrombosis is within 95-100% range.CBC W/ PLT COUNT & AUTO [id number] 05:23:00 Test Item Value Reference Range Comments WHITE BLOOD CELL COUNT (BEAKER) (test iqky=530) 16.4 K/ L 3.5-10.5 RED BLOOD CELL COUNT (BEAKER) (test obgg=490) 3.11 M/ L 3.93-5.22 HEMOGLOBIN (BEAKER) (test uyue=937) 8.1 GM/DL 11.2-15.7 HEMATOCRIT (BEAKER) (test yncc=976) 25.2 % 34.1-44.9 MEAN CORPUSCULAR VOLUME (BEAKER) (test ssak=802) 81.0 fL 79.4-94.8 MEAN CORPUSCULAR HEMOGLOBIN (BEAKER) (test 26.0 pg 25.6-32.2 bslh=412) MEAN CORPUSCULAR HEMOGLOBIN CONC (BEAKER) (test 32.1 GM/DL 32.2-35.5 bpys=260) RED CELL DISTRIBUTION WIDTH (BEAKER) (test 19.7 % 11.7-14.4 blua=530) PLATELET COUNT (BEAKER) (test hcyh=844) 120 K/CU MM 150-450 MEAN PLATELET VOLUME (BEAKER) (test svkc=083) 11.5 fL 9.4-12.3 NUCLEATED RED BLOOD CELLS (BEAKER) (test 0 /100 WBC 0-0 rzto=323) NEUTROPHILS RELATIVE PERCENT (BEAKER) (test 71 % npze=947) LYMPHOCYTES RELATIVE PERCENT (BEAKER) (test 15 % niej=120) MONOCYTES RELATIVE PERCENT (BEAKER) (test 7 % tnyv=625) EOSINOPHILS RELATIVE PERCENT (BEAKER) (test 5 % qwpk=546) BASOPHILS RELATIVE PERCENT (BEAKER) (test 0 % sogv=782) NEUTROPHILS ABSOLUTE COUNT (BEAKER) (test 11.73 K/ L 1.56-6.13 lsuw=281) LYMPHOCYTES ABSOLUTE COUNT (BEAKER) (test 2.52 K/ L 1.18-3.74 twaq=024) MONOCYTES ABSOLUTE COUNT (BEAKER) (test 1.19 K/ L 0.24-0.36 tkcs=455) EOSINOPHILS ABSOLUTE COUNT (BEAKER) (test 0.75 K/ L 0.04-0.36 ltsg=090) BASOPHILS ABSOLUTE COUNT (BEAKER) (test 0.05 K/ L 0.01-0.08 yjdd=430) IMMATURE GRANULOCYTES-RELATIVE PERCENT (BEAKER) 1 % 0-1 (test homg=9172) [id number] 05:10:00 Test Item Value Reference Range Comments PROTIME (BEAKER) (test rnoa=601) 17.9 seconds 11.9-14.2 INR (BEAKER) (test aged=443) 1.6 <=5.9 PARTIAL THROMBOPLASTIN TIME (BEAKER) (test 37.8 seconds 22.5-36.0 mngy=862) Effective 04/25/2019: PT Reference Range ChangeNew: 11.9-14.2 Previous: 11.7- 14.7RECOMMENDED COUMADIN/WARFARIN INR THERAPY RANGESSTANDARD DOSE: 2.0-3.0 Includes: PROPHYLAXIS for venous thrombosis, systemic embolization; TREATMENT for venous thrombosis and/or pulmonary embolus.HIGH RISK: Target INR is2.5-3.5 for patients wiht mechanical heart valves.[id number] 05:10:00 Test Item Value Reference Range Comments PHOSPHORUS (BEAKER) (test skwa=895) 3.3 mg/dL 2.3-4.7 [id number] 05:10:00 Test Item Value Reference Range Comments MAGNESIUM (BEAKER) (test lspv=322) 2.3 mg/dL 1.6-2.6 COMPREHENSIVE METABOLIC [id number] 05:10:00 Test Item Value Reference Range Comments TOTAL PROTEIN (BEAKER) 5.0 gm/dL 6.0-8.3 (test rpsw=209) ALBUMIN (BEAKER) (test 3.0 g/dL 3.5-5.0 cpng=1997) ALKALINE PHOSPHATASE 161 U/L 40-150 (BEAKER) (test myzz=611) BILIRUBIN TOTAL (BEAKER) 1.6 mg/dL 0.2-1.2 (test cblz=938) SODIUM (BEAKER) (test 145 meq/L 136-145 zsca=654) POTASSIUM (BEAKER) (test 3.7 meq/L 3.5-5.1 swck=460) CHLORIDE (BEAKER) (test 114 meq/L 98-107 xntt=710) CO2 (BEAKER) (test 25 meq/L 22-29 yotq=086) BLOOD UREA NITROGEN 26 mg/dL 7-21 (BEAKER) (test goko=928) CREATININE (BEAKER) (test 0.87 mg/dL 0.57-1.25 ntfj=211) GLUCOSE RANDOM (BEAKER) 99 mg/dL 70-105 (test htsm=678) CALCIUM (BEAKER) (test 8.6 mg/dL 8.4-10.2 oxkj=164) AST (SGOT) (BEAKER) (test 91 U/L 5-34 gmta=759) ALT (SGPT) (BEAKER) (test 945 U/L 6-55 auru=215) EGFR (BEAKER) (test 68 mL/min/1.73 sq m ESTIMATED GFR IS NOT zzfa=9224) ACCURATE CREATININE CLEARANCE IN PREDICTING GLOMERULAR FILTRATION RATE. ESTIMATED GFR IS NOT APPLICABLE FOR DIALYSIS PATIENTS. [id number] 05:08:00 Test Item Value Reference Range Comments FIBRINOGEN LEVEL (BEAKER) (test eqjx=183) 275 mg/dl 225-434 PROTHROMBIN TIME/[id number] 05:07:00 Test Item Value Reference Range Comments PROTIME (BEAKER) (test tdrf=621) 17.9 seconds 11.9-14.2 INR (BEAKER) (test vusf=520) 1.6 <=5.9 Effective 04/25/2019: PT Reference Range ChangeNew: 11.9-14.2 Previous: 11.7- 14.7RECOMMENDED COUMADIN/WARFARIN INR THERAPY RANGESSTANDARD DOSE: 2.0-3.0 Includes: PROPHYLAXIS for venous thrombosis, systemic embolization; TREATMENT for venous thrombosis and/or pulmonary embolus.HIGH RISK: Target INR is2.5-3.5 for patients wiht mechanical heart valves.CALCIUM, [id number] 04:59:00 Test Item Value Reference Range Comments CALCIUM IONIZED (BEAKER) (test bulq=855) 1.20 mmol/L 1.12-1.27 PH, BLOOD (BEAKER) (test laey=2566) 7.37 BLOOD GAS, [id number] 04:55:00 Test Item Value Reference Range Comments PH ARTERIAL (BEAKER) (test ttpj=047) 7.35 7.35-7.45 PCO2 ARTERIAL (BEAKER) (test cpae=695) 43 mmHg 35-45 PO2 ARTERIAL (BEAKER) (test wxvm=830) 170 mmHg 80-90 O2 SATURATION ARTERIAL (BEAKER) (test lwgx=110) 99.0 % 96.0-97.0 HCO3 ARTERIAL (BEAKER) (test nslo=249) 23 mmol/L 21-29 BASE EXCESS ARTERIAL (BEAKER) (test knrs=786) -1.9 mmol/L -2.0-3.0 PATIENT TEMPERATURE (BEAKER) (test lmky=9685) 38.0 C FIO2 (BEAKER) (test nlkj=6499) 40.0 % POCT-GLUCOSE [id number] 00:46:00 Test Item Value Reference Range Comments POC-GLUCOSE METER (BEAKER) 90 mg/dL 70-110 : TESTED AT [address] (test ilnq=7584) [facility], [address]: Dust Collector Treater/Commodity Management Specialist [id number] for SUSIE DIAZ MRSA [id number] 19:33:00 Test Item Value Reference Range Comments CULTURE (BEAKER) (test asuu=5373) No MRSA isolated PROTHROMBIN TIME/[id number] 18:00:00 Test Item Value Reference Range Comments PROTIME (BEAKER) (test oeev=442) 19.8 seconds 11.9-14.2 INR (BEAKER) (test gkfd=590) 1.8 <=5.9 Effective 04/25/2019: PT Reference Range ChangeNew: 11.9-14.2 Previous: 11.7- 14.7RECOMMENDED COUMADIN/WARFARIN INR THERAPY RANGESSTANDARD DOSE: 2.0-3.0 Includes: PROPHYLAXIS for venous thrombosis, systemic embolization; TREATMENT for venous thrombosis and/or pulmonary embolus.HIGH RISK: Target INR is2.5-3.5 for patients wiht mechanical heart valves.PT/[id number] 18:00:00 Test Item Value Reference Range Comments PROTIME (BEAKER) (test fppc=733) 19.8 seconds 11.9-14.2 INR (BEAKER) (test eggu=853) 1.8 <=5.9 PARTIAL THROMBOPLASTIN TIME (BEAKER) (test 41.0 seconds 22.5-36.0 eanv=075) Effective 04/25/2019: PT Reference Range ChangeNew: 11.9-14.2 Previous: 11.7- 14.7RECOMMENDED COUMADIN/WARFARIN INR THERAPY RANGESSTANDARD DOSE: 2.0-3.0 Includes: PROPHYLAXIS for venous thrombosis, systemic embolization; TREATMENT for venous thrombosis and/or pulmonary embolus.HIGH RISK: Target INR is2.5-3.5 for patients wiht mechanical heart valves.[id number] 17:55:00 Test Item Value Reference Range Comments MAGNESIUM (BEAKER) (test wlft=112) 1.9 mg/dL 1.6-2.6 BASIC METABOLIC [id number] 17:55:00 Test Item Value Reference Range Comments SODIUM (BEAKER) (test 142 meq/L 136-145 jhmr=187) POTASSIUM (BEAKER) (test 3.8 meq/L 3.5-5.1 pjqx=030) CHLORIDE (BEAKER) (test 112 meq/L 98-107 xytm=956) CO2 (BEAKER) (test 23 meq/L 22-29 symc=017) BLOOD UREA NITROGEN 23 mg/dL 7-21 (BEAKER) (test fvbw=319) CREATININE (BEAKER) (test 0.94 mg/dL 0.57-1.25 cqfb=084) GLUCOSE RANDOM (BEAKER) 120 mg/dL 70-105 (test lvgd=384) CALCIUM (BEAKER) (test 8.3 mg/dL 8.4-10.2 axqs=327) EGFR (BEAKER) (test 62 mL/min/1.73 sq m ESTIMATED GFR IS NOT mbiy=2535) ACCURATE CREATININE CLEARANCE IN PREDICTING GLOMERULAR FILTRATION RATE. ESTIMATED GFR IS NOT APPLICABLE FOR DIALYSIS PATIENTS. CYTOMEGALOVIRUS ANTIBODY, [id number] 16:41:00 Test Item Value Reference Range Comments CYTOMEGALOVIRUS, IGG (BEAKER) (test sqvy=9424) Negative Negative, Equivocal CMV IgG Result Interpretation: </=0.8 Al Negative 0.9-1.0 Al Equivocal &gt ;/=1.1 Al PositiveCYTOMEGALOVIRUS ANTIBODY, [id number] 16:41:00 Test Item Value Reference Range Comments CYTOMEGALOVIRUS IGM ANTIBODY (BEAKER) (test Negative Negative, Equivocal lshc=8540) CMV IgM Result Interpretation: </=0.8 Al Negative 0.9-1.0 Al Equivocal >/=1.1 Al PositiveEBV ANTIBODY, [id number] 16:41:00 Test Item Value Reference Range Comments JAMA BELTRAN VIRAL CAPSID ANTIGEN IGG (BEAKER) Positive Negative, Equivocal (test stiu=2001) Jama Beltran Viral Capsid Antigen IgG Result Interpretation: </=0.8 Al Negative 0.9-1.0 Al Equivocal >/=1.1 Al PositiveEBV ANTIBODY, [id number] 16:41:00 Test Item Value Reference Range Comments JAMA BELTRAN VIRAL CAPSID ANTIGEN IGM (BEAKER) Positive Negative, Equivocal (test wdxn=8473) Jama Beltran Viral Capsid Antigen IgM Result Interpretation: </=0.8 Al Negative 0.9-1.0 Al Equivocal >/=1.1 Al PositivePOCT-GLUCOSE [id number] 16:15:00 Test Item Value Reference Range Comments POC-GLUCOSE METER (BEAKER) 107 mg/dL 70-110 : TESTED AT [facility] [address] [place] [address] (test jydp=0261) [facility], [address]: Dust Collector Treater/Commodity Management Specialist [id number] for Karely Saleh CT, BRAIN, WITHOUT [id number] 14:07:00Patient with decerebrate posturing , r/o herniationFINAL REPORT CT, BRAIN, WITHOUT CONTRAST INDICATION: Altered mental status TECHNIQUE: Noncontrast axial imaging was obtained from the vertex to the skull base. Axial images were reconstructed using a bone algorithm. DOSE REDUCTION: Dose modulation, iterative reconstruction, and/or weight-based adjustment of the mA/kV was utilized to reduce the radiation dose to as low as reasonably achievable. COMPARISON: None. FINDINGS: Intracranial: Mild generalized cerebral atrophy with ex vacuo dilatation of the ventricular system proportionate to sulci. Scattered foci of hypoattenuation within the periventricular and subcortical white matter are a nonspecific finding commonly attributedto chronic small vessel ischemic disease. No intracranial hemorrhage or abnormal extra-axial collection. No evidence of acute territorial infarct. No mass effect. No hydrocephalus. Osseous structures: No fracture. No suspicious lesion. Paranasal sinuses and mastoid air cells: Marked mucosal thickeningwith air-fluid level in the right sphenoid sinus. Mastoids are clear. Orbital contents: Globes are intact. IMPRESSION: No acute intracranial hemorrhage or territorial infarct. If there is persistent clinical concern for intracranial pathology, MR examination is recommended for further characterization. Signed: Luther Perry MDReport Verified Date/Time: 10/09/2019 14:07:57 SPUTUM CULTURE + GRAM [id number] 12: 59:00 Test Item Value Reference Range Comments CULTURE (BEAKER) (test npyz=7563) See comment GRAM STAIN RESULT (BEAKER) (test 1+ White blood cells seen wncv=6720) GRAM STAIN RESULT (BEAKER) (test 0-5 epithelial cells zvyg=358263) GRAM STAIN RESULT (BEAKER) (test No organisms seen gnxz=043194) 2+ YeastNo Normal respiratory candy presentPOCT-GLUCOSE [id number] 12:22:00 Test Item Value Reference Range Comments POC-GLUCOSE METER (BEAKER) 168 mg/dL 70-110 : TESTED AT [address] (test nsoq=5687) [facility], [address]: Dust Collector Treater/Commodity Management Specialist [id number] for Karely Saleh POCT-GLUCOSE [id number] 10:04:00 Test Item Value Reference Range Comments POC-GLUCOSE METER (BEAKER) 101 mg/dL 70-110 : TESTED AT [address] (test timp=5718) [facility], [address]: Dust Collector Treater/Commodity Management Specialist [id number] for Karely Saleh BILIRUBIN, [id number] 09:44:00 Test Item Value Reference Range Comments BILIRUBIN DIRECT (BEAKER) (test oatg=027) 1.5 mg/dL 0.1-0.5 [id number] 07:19:00 Test Item Value Reference Range Comments PROCALCITONIN (BEAKER) (test pnit=6405) 1.48 ng/mL <0.05 SEPSIS RISK (ng/mL)Low: 0.05-0.50Intermediate: 0.51-2.00High: & gt;=2.33O-[id number] 05:26:00 Test Item Value Reference Range Comments D-DIMER QUANTITATIVE (BEAKER) (test gkmn=486) > MG/L FEU <0.50 Intended Use: The D-Dimer Assay can be used to aid in the diagnosis of Deep Vein Thrombosis (DVT) and Pulmonary Embolism Disease (PED).In patients with low pre-test probability, various studies concerning STA Liatest D-dimer test have reported that with a cutoff value of 0.50 MG/L FEU, the Negative Predictive Value (NPV) regarding the exclusion of thrombosis is within 95-100% range.RAD, CHEST, 1 VIEW, NON [id number] 05:16:00Reason for exam:->endotracheal intubationShould this be performed at the bedside?->YesFINAL REPORT RAD, CHEST, 1 VIEW, NON DEPT INDICATION: endotracheal intubationCOMPARISON: Exam from 19 hours prior FINDINGS: Portable frontal view of the chest. IMPRESSION: Support Lines: Endotracheal tube tip is 1.8 cm above the ganesh. Stable enteric tube and right IJ central venous catheter.Lungs and pleura: Unchanged right greater than left scattered airspace and interstitial opacities suggestive of pulmonary edema. No pleural effusion. No pneumothorax.Heart and mediastinum: Stable contours. Additional findings: None. Signed: Aurelia Cummins MDReport Verified Date/Time: 10/09/2019 05:16:08 CALCIUM, [id number] 05:05:00 Test Item Value Reference Range Comments CALCIUM IONIZED (BEAKER) (test vcum=180) 1.14 mmol/L 1.12-1.27 PH, BLOOD (BEAKER) (test fysn=2938) 7.49 BLOOD GAS, [id number] 05:04:00 Test Item Value Reference Range Comments PH ARTERIAL (BEAKER) (test drff=030) 7.49 7.35-7.45 PCO2 ARTERIAL (BEAKER) (test cmdd=750) 29 mmHg 35-45 PO2 ARTERIAL (BEAKER) (test qyuu=366) 213 mmHg 80-90 O2 SATURATION ARTERIAL (BEAKER) (test wbpx=022) 99.5 % 96.0-97.0 HCO3 ARTERIAL (BEAKER) (test soyc=678) 21 mmol/L 21-29 BASE EXCESS ARTERIAL (BEAKER) (test rdkf=524) -1.4 mmol/L -2.0-3.0 PATIENT TEMPERATURE (BEAKER) (test yuby=7227) 37.0 C FIO2 (BEAKER) (test smvn=7995) 40.0 % CBC W/PLT COUNT & AUTO [id number] 04:51:00 Test Item Value Reference Range Comments WHITE BLOOD CELL COUNT 21.2 K/ L 3.5-10.5 (BEAKER) (test cede=660) RED BLOOD CELL COUNT (BEAKER) 3.23 M/ L 3.93-5.22 (test xlvy=720) HEMOGLOBIN (BEAKER) (test 8.4 GM/DL 11.2-15.7 loel=780) HEMATOCRIT (BEAKER) (test 25.5 % 34.1-44.9 jnei=010) MEAN CORPUSCULAR VOLUME 78.9 fL 79.4-94.8 Discordant MCV results (BEAKER) (test jgni=870) compared to previous results; clinical correlation required. MEAN CORPUSCULAR HEMOGLOBIN 26.0 pg 25.6-32.2 (BEAKER) (test pxuf=387) MEAN CORPUSCULAR HEMOGLOBIN 32.9 GM/DL 32.2-35.5 CONC (BEAKER) (test duau=403) RED CELL DISTRIBUTION WIDTH 18.5 % 11.7-14.4 (BEAKER) (test xbjq=231) PLATELET COUNT (BEAKER) (test 96 K/CU MM 150-450 vgnf=144) MEAN PLATELET VOLUME (BEAKER) 11.0 fL 9.4-12.3 (test zzci=888) NUCLEATED RED BLOOD CELLS 0 /100 WBC 0-0 (BEAKER) (test ogwa=957) NEUTROPHILS RELATIVE PERCENT 80 % (BEAKER) (test inmd=515) LYMPHOCYTES RELATIVE PERCENT 10 % (BEAKER) (test nojl=629) MONOCYTES RELATIVE PERCENT 6 % (BEAKER) (test mxvd=205) EOSINOPHILS RELATIVE PERCENT 2 % (BEAKER) (test rqug=600) BASOPHILS RELATIVE PERCENT 0 % (BEAKER) (test glch=581) NEUTROPHILS ABSOLUTE COUNT 16.98 K/ L 1.56-6.13 (BEAKER) (test wmim=554) LYMPHOCYTES ABSOLUTE COUNT 2.20 K/ L 1.18-3.74 (BEAKER) (test wtzb=776) MONOCYTES ABSOLUTE COUNT 1.24 K/ L 0.24-0.36 (BEAKER) (test imrb=314) EOSINOPHILS ABSOLUTE COUNT 0.39 K/ L 0.04-0.36 (BEAKER) (test hpke=294) BASOPHILS ABSOLUTE COUNT 0.04 K/ L 0.01-0.08 (BEAKER) (test ocub=899) IMMATURE GRANULOCYTES-RELATIVE 2 % 0-1 PERCENT (BEAKER) (test acuj=3706) VANCOMYCIN LEVEL, [id number] 04:26:00 Test Item Value Reference Range Comments VANCOMYCIN TROUGH (BEAKER) (test pvfa=142) 7.0 ug/mL 10.0-20.0 [id number] 04:21:00 Test Item Value Reference Range Comments PHOSPHORUS (BEAKER) (test kkqj=468) 3.2 mg/dL 2.3-4.7 [id number] 04:21:00 Test Item Value Reference Range Comments MAGNESIUM (BEAKER) (test uzdh=493) 1.9 mg/dL 1.6-2.6 COMPREHENSIVE METABOLIC [id number] 04:21:00 Test Item Value Reference Range Comments TOTAL PROTEIN (BEAKER) 5.0 gm/dL 6.0-8.3 (test iavt=779) ALBUMIN (BEAKER) (test 3.1 g/dL 3.5-5.0 dawk=8893) ALKALINE PHOSPHATASE 192 U/L 40-150 (BEAKER) (test duki=446) BILIRUBIN TOTAL (BEAKER) 2.3 mg/dL 0.2-1.2 (test tzal=053) SODIUM (BEAKER) (test 142 meq/L 136-145 nzlr=723) POTASSIUM (BEAKER) (test 3.8 meq/L 3.5-5.1 glcv=946) CHLORIDE (BEAKER) (test 113 meq/L 98-107 dipt=519) CO2 (BEAKER) (test 24 meq/L 22-29 yxmn=392) BLOOD UREA NITROGEN 21 mg/dL 7-21 (BEAKER) (test muld=149) CREATININE (BEAKER) (test 0.89 mg/dL 0.57-1.25 yocf=850) GLUCOSE RANDOM (BEAKER) 147 mg/dL 70-105 (test opyo=517) CALCIUM (BEAKER) (test 8.2 mg/dL 8.4-10.2 roax=563) AST (SGOT) (BEAKER) (test 205 U/L 5-34 ibcx=244) ALT (SGPT) (BEAKER) (test 1373 U/L 6-55 nfex=485) EGFR (BEAKER) (test 66 mL/min/1.73 sq m ESTIMATED GFR IS NOT sxjt=9206) ACCURATE CREATININE CLEARANCE IN PREDICTING GLOMERULAR FILTRATION RATE. ESTIMATED GFR IS NOT APPLICABLE FOR DIALYSIS PATIENTS. [id number] 04:19:00 Test Item Value Reference Range Comments FIBRINOGEN LEVEL (BEAKER) (test fjvd=572) 267 mg/dl 225-434 [id number] 04:14:00 Test Item Value Reference Range Comments PROTIME (BEAKER) (test dqzq=906) 21.3 seconds 11.9-14.2 INR (BEAKER) (test elmz=553) 1.9 <=5.9 PARTIAL THROMBOPLASTIN TIME (BEAKER) (test 36.3 seconds 22.5-36.0 nmdu=445) Effective 04/25/2019: PT Reference Range ChangeNew: 11.9-14.2 Previous: 11.7- 14.7RECOMMENDED COUMADIN/WARFARIN INR THERAPY RANGESSTANDARD DOSE: 2.0-3.0 Includes: PROPHYLAXIS for venous thrombosis, systemic embolization; TREATMENT for venous thrombosis and/or pulmonary embolus.HIGH RISK: Target INR is2.5-3.5 for patients wiht mechanical heart valves.PROTHROMBIN [id number] 04:13: 00 Test Item Value Reference Range Comments PROTIME (BEAKER) (test jkxn=861) 21.3 seconds 11.9-14.2 INR (BEAKER) (test woib=557) 1.9 <=5.9 Effective 04/25/2019: PT Reference Range ChangeNew: 11.9-14.2 Previous: 11.7- 14.7RECOMMENDED COUMADIN/WARFARIN INR THERAPY RANGESSTANDARD DOSE: 2.0-3.0 Includes: PROPHYLAXIS for venous thrombosis, systemic embolization; TREATMENT for venous thrombosis and/or pulmonary embolus.HIGH RISK: Target INR is2.5-3.5 for patients wiht mechanical heart valves.POCT-GLUCOSE [id number] 01:04:00 Test Item Value Reference Range Comments POC-GLUCOSE METER (BEAKER) 143 mg/dL 70-110 : TESTED AT [id number] (test khpv=9222) [facility], [id number]: Dust Collector Treater/Commodity Management Specialist [id number] for SUSIE DIAZ POCT-GLUCOSE [id number] 20:20:00 Test Item Value Reference Range Comments POC-GLUCOSE METER (BEAKER) 145 mg/dL 70-110 : TESTED AT [address] (test ryoj=4523) [facility], [id number]: Dust Collector Treater/Commodity Management Specialist [id number] for SUSIE DIAZ POCT-GLUCOSE [id number] 16:43:00 Test Item Value Reference Range Comments POC-GLUCOSE METER (BEAKER) 164 mg/dL 70-110 : TESTED AT [address] (test zzdt=2678) [facility], [address]: Dust Collector Treater/Commodity Management Specialist [id number] for Karely Saleh CMV PCR, [id number] 15:47:00 Test Item Value Reference Range Comments CMV VIRAL LOAD - NEGATIVE Negative or below the linear (BEAKER) (test kapb=7216) range of the assay (<375 copies/mL) Cytomegalovirus (CMV) infection can cause significant disease in immunosuppressed patients. However,it is common for CMV to manifest as a limited infection which is of no clinical significance in immunosuppressed patients or in healthy individuals.Viral load measurements are helpful to identify clinical CMV infection and to guide the pre-emptive management of antiviral therapy. For treatment of CMVinfection due to reactivation in transplant recipients, a threshold between 4,000 and 5,000 copies/mL is suggested. For treatment of primary CMV infection, a lower threshold can be used.CMV infection may also be monitored using weekly serial measurements. Serial measurements of CMV DNA viral load canbe evaluated by identifying a 10- fold change, as well as assessing the CMV DNA viral load and the clinical context for each patient.The plasma CMV DNA viral load was detected using quantitative polymerase chain reaction and fluorescent monitoring of a specific hybridized probe. Genetic variation and other factors can affect the accuracy of nucleic acid testing. Therefore, the results should be interpreted in light of clinical data. A negative result may not exclude the presence of CMV disease.This test was developed and its performance characteristics determined by the [facility] Pathology Department, Section of Molecular Pathology. It has not been cleared or approved by the U.S. Food and Drug Administration (FDA), since FDA approval is not required for clinical use of the test. Validation was done as required by The Clinical Laboratory Improvement Amendments of 1988.[id number] 15:29:00 Test Item Value Reference Range Comments PHOSPHORUS (BEAKER) (test jrgc=740) 3.5 mg/dL 2.3-4.7 [id number] 15:29:00 Test Item Value Reference Range Comments MAGNESIUM (BEAKER) (test idpv=899) 2.1 mg/dL 1.6-2.6 [id number] 15:01:00 Test Item Value Reference Range Comments PHOSPHORUS (BEAKER) (test llge=043) 2.1 mg/dL 2.3-4.7 [id number] 15:01:00 Test Item Value Reference Range Comments MAGNESIUM (BEAKER) (test ixzh=434) 2.0 mg/dL 1.6-2.6 BASIC METABOLIC [id number] 15:01:00 Test Item Value Reference Range Comments SODIUM (BEAKER) (test 139 meq/L 136-145 gcal=886) POTASSIUM (BEAKER) (test 3.6 meq/L 3.5-5.1 jfrm=805) CHLORIDE (BEAKER) (test 110 meq/L 98-107 drej=319) CO2 (BEAKER) (test 22 meq/L 22-29 ukau=522) BLOOD UREA NITROGEN 20 mg/dL 7-21 (BEAKER) (test pdyt=083) CREATININE (BEAKER) (test 0.99 mg/dL 0.57-1.25 hblv=624) GLUCOSE RANDOM (BEAKER) 149 mg/dL 70-105 (test qajj=222) CALCIUM (BEAKER) (test 8.1 mg/dL 8.4-10.2 eovu=778) EGFR (BEAKER) (test 58 mL/min/1.73 sq m ESTIMATED GFR IS NOT gbqp=5584) ACCURATE CREATININE CLEARANCE IN PREDICTING GLOMERULAR FILTRATION RATE. ESTIMATED GFR IS NOT APPLICABLE FOR DIALYSIS PATIENTS. Specimen slightly ictericPT/[id number] 14:53:00 Test Item Value Reference Range Comments PROTIME (BEAKER) (test qgeu=293) 22.6 seconds 11.9-14.2 INR (BEAKER) (test enql=329) 2.1 <=5.9 PARTIAL THROMBOPLASTIN TIME (BEAKER) (test 33.5 seconds 22.5-36.0 nwfh=429) Effective 04/25/2019: PT Reference Range ChangeNew: 11.9-14.2 Previous: 11.7- 14.7RECOMMENDED COUMADIN/WARFARIN INR THERAPY RANGESSTANDARD DOSE: 2.0-3.0 Includes: PROPHYLAXIS for venous thrombosis, systemic embolization; TREATMENT for venous thrombosis and/or pulmonary embolus.HIGH RISK: Target INR is2.5-3.5 for patients wiht mechanical heart valves.[id number] 14:38:00 Test Item Value Reference Range Comments AMMONIA (BEAKER) (test munn=245) 34 mol/L 18-72 RUBELLA ANTIBODY, [id number] 14:20:00 Test Item Value Reference Range Comments RUBELLA IGG QUANTITATION (BEAKER) (test cbok=143) 1.0 IU/mL <8.0 Rubella IgG Result Interpretation: </=7.0 IU/mL Negative - Presumed non- immune 8.0 - 9.9 IU/mL Equivocal >=10.0 IU/mL Positive - Presumed immuneVARICELLA ZOSTER ANTIBODY, [id number] 13:49:00 Test Item Value Reference Range Comments VARICELLA ZOSTER IGG (AL) ([facility]) (test gvfp=0624) 4.8 VARICELLA ZOSTER RESULT INTERPRETATIONS: <=0.8 Al Nonreactive: Presumed non-immune to VZV 0.9-1.0 Al Equivocal >=1.1 Al Reactive: Presumed immune to VZVCRYPTOCOCCAL [id number] 13:33:00 Test Item Value Reference Range Comments CRYPTOCOCCAL ANTIGEN, SERUM (BEAKER) (test Negative Negative, Interference kqvj=3805) FACTOR 5 ACTIVITY (BLEEDING RISK)2019-10-08 13:03:00 Test Item Value Reference Range Comments FACTOR V ACTIVITY (BEAKER) (test avwy=844) 9.0 % 60.0-150.0 CBC W/PLT COUNT & AUTO [id number] 12:13:00 Test Item Value Reference Range Comments WHITE BLOOD CELL COUNT (BEAKER) (test yqvx=458) 18.3 K/ L 3.5-10.5 RED BLOOD CELL COUNT (BEAKER) (test xmdy=728) 3.29 M/ L 3.93-5.22 HEMOGLOBIN (BEAKER) (test zywa=575) 8.6 GM/DL 11.2-15.7 HEMATOCRIT (BEAKER) (test mlsu=994) 28.9 % 34.1-44.9 MEAN CORPUSCULAR VOLUME (BEAKER) (test zevu=744) 87.8 fL 79.4-94.8 MEAN CORPUSCULAR HEMOGLOBIN (BEAKER) (test 26.1 pg 25.6-32.2 dglv=263) MEAN CORPUSCULAR HEMOGLOBIN CONC (BEAKER) (test 29.8 GM/DL 32.2-35.5 figa=574) RED CELL DISTRIBUTION WIDTH (BEAKER) (test 19.1 % 11.7-14.4 clim=096) PLATELET COUNT (BEAKER) (test appa=582) 84 K/CU MM 150-450 MEAN PLATELET VOLUME (BEAKER) (test tyht=783) 10.1 fL 9.4-12.3 NUCLEATED RED BLOOD CELLS (BEAKER) (test 0 /100 WBC 0-0 bhnf=887) NEUTROPHILS RELATIVE PERCENT (BEAKER) (test 86 % zkno=965) LYMPHOCYTES RELATIVE PERCENT (BEAKER) (test 7 % jgpy=106) MONOCYTES RELATIVE PERCENT (BEAKER) (test 5 % qnfq=412) EOSINOPHILS RELATIVE PERCENT (BEAKER) (test 1 % njxb=475) BASOPHILS RELATIVE PERCENT (BEAKER) (test 0 % qmvj=496) NEUTROPHILS ABSOLUTE COUNT (BEAKER) (test 15.69 K/ L 1.56-6.13 tkdo=712) LYMPHOCYTES ABSOLUTE COUNT (BEAKER) (test 1.29 K/ L 1.18-3.74 bqea=631) MONOCYTES ABSOLUTE COUNT (BEAKER) (test jdnh=783) 0.87 K/ L 0.24-0.36 EOSINOPHILS ABSOLUTE COUNT (BEAKER) (test 0.14 K/ L 0.04-0.36 pnne=622) BASOPHILS ABSOLUTE COUNT (BEAKER) (test owlq=463) 0.04 K/ L 0.01-0.08 IMMATURE GRANULOCYTES-RELATIVE PERCENT (BEAKER) 1 % 0-1 (test wzqz=1335) POCT-GLUCOSE [id number] 11:22:00 Test Item Value Reference Range Comments POC-GLUCOSE METER (BEAKER) 184 mg/dL 70-110 : TESTED AT [address] (test lauj=3017) [facility], [id number]: Dust Collector Treater/Commodity Management Specialist [id number] for Karely Saleh ANTI-NUCLEAR ANTIBODY (JOSE ARMANDO)2019-10-08 10:44:00 Test Item Value Reference Range Comments ANTI-NUCLEAR ANTIBODY (JOSE ARMANDO) (BEAKER) (test Negative Negative yfon=673) Test performed by IFA method.Test performed by IFA method.[id number] 09:26:00 Test Item Value Reference Range Comments PHOSPHORUS (BEAKER) (test zspu=681) 2.9 mg/dL 2.3-4.7 [id number] 09:26:00 Test Item Value Reference Range Comments MAGNESIUM (BEAKER) (test fmpa=100) 2.0 mg/dL 1.6-2.6 BASIC METABOLIC [id number] 09:26:00 Test Item Value Reference Range Comments SODIUM (BEAKER) (test 138 meq/L 136-145 ebcy=489) POTASSIUM (BEAKER) (test 3.8 meq/L 3.5-5.1 xxuo=160) CHLORIDE (BEAKER) (test 108 meq/L 98-107 isiz=695) CO2 (BEAKER) (test 22 meq/L 22-29 ofiy=410) BLOOD UREA NITROGEN 20 mg/dL 7-21 (BEAKER) (test dhta=982) CREATININE (BEAKER) (test 1.07 mg/dL 0.57-1.25 uvaf=980) GLUCOSE RANDOM (BEAKER) 164 mg/dL 70-105 (test bvsm=787) CALCIUM (BEAKER) (test 8.1 mg/dL 8.4-10.2 husw=718) EGFR (BEAKER) (test 53 mL/min/1.73 sq m ESTIMATED GFR IS NOT pczx=6009) ACCURATE CREATININE CLEARANCE IN PREDICTING GLOMERULAR FILTRATION RATE. ESTIMATED GFR IS NOT APPLICABLE FOR DIALYSIS PATIENTS. Specimen slightly ictericRAD, CHEST, 1 VIEW, NON [id number] 09:14:00Reason for exam:->endotracheal intubationShould this be performed at the bedside?-& gt;YesFINAL REPORT RAD, CHEST, 1 VIEW, NON DEPT INDICATION: endotracheal intubationCOMPARISON: Prior day's exam FINDINGS: Portable frontal view of the chest. IMPRESSION: Support Lines: Stable. Lungs and pleura: Improved interstitial congestion. No consolidation or effusion. No pneumothorax.Heart and mediastinum: Stable contours. Additional findings: None. Signed: JR Gramajo Robert Aníbal Verified Date/Time: 10/08/2019 09:14: 39 Reading Location: [facility] Radiology Reading Room -[id number] 06:25: 00 Test Item Value Reference Range Comments D-DIMER QUANTITATIVE (BEAKER) (test drkn=984) > MG/L FEU <0.50 Intended Use: The D-Dimer Assay can be used to aid in the diagnosis of Deep Vein Thrombosis (DVT) and Pulmonary Embolism Disease (PED).In patients with low pre-test probability, various studies concerning STA Liatest D-dimer test have reported that with a cutoff value of 0.50 MG/L FEU, the Negative Predictive Value (NPV) regarding the exclusion of thrombosis is within 95-100% range.PROTHROMBIN TIME/[id number] 05:32:00 Test Item Value Reference Range Comments PROTIME (BEAKER) (test rjfh=603) 23.4 seconds 11.9-14.2 INR (BEAKER) (test omnr=714) 2.2 <=5.9 Effective 04/25/2019: PT Reference Range ChangeNew: 11.9-14.2 Previous: 11.7- 14.7RECOMMENDED COUMADIN/WARFARIN INR THERAPY RANGESSTANDARD DOSE: 2.0-3.0 Includes: PROPHYLAXIS for venous thrombosis, systemic embolization; TREATMENT for venous thrombosis and/or pulmonary embolus.HIGH RISK: Target INR is2.5-3.5 for patients wiht mechanical heart valves.[id number] 05:32:00 Test Item Value Reference Range Comments FIBRINOGEN LEVEL (BEAKER) (test szpi=246) 200 mg/dl 225-434 PT/[id number] 05:32:00 Test Item Value Reference Range Comments PROTIME (BEAKER) (test cpkb=470) 23.4 seconds 11.9-14.2 INR (BEAKER) (test otpz=982) 2.2 <=5.9 PARTIAL THROMBOPLASTIN TIME (BEAKER) (test 35.0 seconds 22.5-36.0 qgru=057) Effective 04/25/2019: PT Reference Range ChangeNew: 11.9-14.2 Previous: 11.7- 14.7RECOMMENDED COUMADIN/WARFARIN INR THERAPY RANGESSTANDARD DOSE: 2.0-3.0 Includes: PROPHYLAXIS for venous thrombosis, systemic embolization; TREATMENT for venous thrombosis and/or pulmonary embolus.HIGH RISK: Target INR is2.5-3.5 for patients wiht mechanical heart valves.COMPREHENSIVE METABOLIC [id number] 05:24:00 Test Item Value Reference Range Comments TOTAL PROTEIN (BEAKER) 5.1 gm/dL 6.0-8.3 (test uryr=455) ALBUMIN (BEAKER) (test 3.3 g/dL 3.5-5.0 vwdt=9462) ALKALINE PHOSPHATASE 193 U/L 40-150 (BEAKER) (test hylb=620) BILIRUBIN TOTAL (BEAKER) 2.8 mg/dL 0.2-1.2 (test rpuv=204) SODIUM (BEAKER) (test 139 meq/L 136-145 vdag=530) POTASSIUM (BEAKER) (test 3.6 meq/L 3.5-5.1 oilh=711) CHLORIDE (BEAKER) (test 106 meq/L 98-107 vinu=300) CO2 (BEAKER) (test 24 meq/L 22-29 pjqk=453) BLOOD UREA NITROGEN 21 mg/dL 7-21 (BEAKER) (test lbqo=075) CREATININE (BEAKER) (test 1.03 mg/dL 0.57-1.25 wqgb=547) GLUCOSE RANDOM (BEAKER) 138 mg/dL 70-105 (test jxmn=473) CALCIUM (BEAKER) (test 8.2 mg/dL 8.4-10.2 jmyk=945) AST (SGOT) (BEAKER) (test 609 U/L 5-34 jryr=996) ALT (SGPT) (BEAKER) (test 1911 U/L 6-55 wezq=677) EGFR (BEAKER) (test 56 mL/min/1.73 sq m ESTIMATED GFR IS NOT aycw=1363) ACCURATE CREATININE CLEARANCE IN PREDICTING GLOMERULAR FILTRATION RATE. ESTIMATED GFR IS NOT APPLICABLE FOR DIALYSIS PATIENTS. Specimen slightly ictericCBC W/PLT COUNT & AUTO [id number] 05:24 :00 Test Item Value Reference Range Comments WHITE BLOOD CELL COUNT (BEAKER) (test jvuo=728) 17.8 K/ L 3.5-10.5 RED BLOOD CELL COUNT (BEAKER) (test qsff=159) 3.07 M/ L 3.93-5.22 HEMOGLOBIN (BEAKER) (test wmzx=284) 8.1 GM/DL 11.2-15.7 HEMATOCRIT (BEAKER) (test qywr=340) 23.3 % 34.1-44.9 MEAN CORPUSCULAR VOLUME (BEAKER) (test hogj=615) 75.9 fL 79.4-94.8 MEAN CORPUSCULAR HEMOGLOBIN (BEAKER) (test 26.4 pg 25.6-32.2 bxry=521) MEAN CORPUSCULAR HEMOGLOBIN CONC (BEAKER) (test 34.8 GM/DL 32.2-35.5 edjv=475) RED CELL DISTRIBUTION WIDTH (BEAKER) (test 17.5 % 11.7-14.4 qzzi=157) PLATELET COUNT (BEAKER) (test xxvw=990) 92 K/CU MM 150-450 MEAN PLATELET VOLUME (BEAKER) (test mghs=087) 10.6 fL 9.4-12.3 NUCLEATED RED BLOOD CELLS (BEAKER) (test 0 /100 WBC 0-0 hotw=414) NEUTROPHILS RELATIVE PERCENT (BEAKER) (test 83 % zgvd=397) LYMPHOCYTES RELATIVE PERCENT (BEAKER) (test 8 % luto=704) MONOCYTES RELATIVE PERCENT (BEAKER) (test 7 % gkdt=680) EOSINOPHILS RELATIVE PERCENT (BEAKER) (test 1 % hekb=583) BASOPHILS RELATIVE PERCENT (BEAKER) (test 0 % woat=489) NEUTROPHILS ABSOLUTE COUNT (BEAKER) (test 14.77 K/ L 1.56-6.13 jpig=257) LYMPHOCYTES ABSOLUTE COUNT (BEAKER) (test 1.42 K/ L 1.18-3.74 jqqm=621) MONOCYTES ABSOLUTE COUNT (BEAKER) (test jibo=022) 1.17 K/ L 0.24-0.36 EOSINOPHILS ABSOLUTE COUNT (BEAKER) (test 0.13 K/ L 0.04-0.36 enie=284) BASOPHILS ABSOLUTE COUNT (BEAKER) (test gvpz=329) 0.02 K/ L 0.01-0.08 IMMATURE GRANULOCYTES-RELATIVE PERCENT (BEAKER) 2 % 0-1 (test fabe=6134) LACTIC ACID, [id number] 05:16:00 Test Item Value Reference Range Comments LACTATE BLOOD VENOUS (2) (BEAKER) (test 1.8 mmol/L 0.5-2.2 hxkp=0862) [id number] 23:51:00 Test Item Value Reference Range Comments PHOSPHORUS (BEAKER) (test pjmo=241) 4.4 mg/dL 2.3-4.7 [id number] 23:51:00 Test Item Value Reference Range Comments MAGNESIUM (BEAKER) (test vlim=028) 2.2 mg/dL 1.6-2.6 BASIC METABOLIC [id number] 23:51:00 Test Item Value Reference Range Comments SODIUM (BEAKER) (test 137 meq/L 136-145 jhwx=047) POTASSIUM (BEAKER) (test 4.0 meq/L 3.5-5.1 gqih=825) CHLORIDE (BEAKER) (test 105 meq/L 98-107 dayq=412) CO2 (BEAKER) (test 21 meq/L 22-29 zyob=421) BLOOD UREA NITROGEN 22 mg/dL 7-21 (BEAKER) (test pwdw=360) CREATININE (BEAKER) (test 1.15 mg/dL 0.57-1.25 xzeq=469) GLUCOSE RANDOM (BEAKER) 160 mg/dL 70-105 (test wxww=986) CALCIUM (BEAKER) (test 8.0 mg/dL 8.4-10.2 rjcn=722) EGFR (BEAKER) (test 49 mL/min/1.73 sq m ESTIMATED GFR IS NOT dita=7634) ACCURATE CREATININE CLEARANCE IN PREDICTING GLOMERULAR FILTRATION RATE. ESTIMATED GFR IS NOT APPLICABLE FOR DIALYSIS PATIENTS. Specimen slightly ictericBLOOD GAS, [id number] 23:37:00 Test Item Value Reference Range Comments PH ARTERIAL (BEAKER) (test mcpo=288) 7.52 7.35-7.45 PCO2 ARTERIAL (BEAKER) (test duhp=381) 28 mmHg 35-45 PO2 ARTERIAL (BEAKER) (test loqi=947) 202 mmHg 80-90 O2 SATURATION ARTERIAL (BEAKER) (test rikq=484) 99.5 % 96.0-97.0 HCO3 ARTERIAL (BEAKER) (test elat=559) 22 mmol/L 21-29 BASE EXCESS ARTERIAL (BEAKER) (test qgra=047) 0.2 mmol/L -2.0-3.0 PATIENT TEMPERATURE (BEAKER) (test dscm=9896) 38.0 C FIO2 (BEAKER) (test slia=1308) 50.0 % CBC W/PLT COUNT & AUTO [id number] 20:12:00 Test Item Value Reference Range Comments WHITE BLOOD CELL COUNT (BEAKER) (test xpxb=693) 14.8 K/ L 3.5-10.5 RED BLOOD CELL COUNT (BEAKER) (test szoi=815) 3.11 M/ L 3.93-5.22 HEMOGLOBIN (BEAKER) (test zybw=194) 8.1 GM/DL 11.2-15.7 HEMATOCRIT (BEAKER) (test vybv=357) 23.2 % 34.1-44.9 MEAN CORPUSCULAR VOLUME (BEAKER) (test fftb=064) 74.6 fL 79.4-94.8 MEAN CORPUSCULAR HEMOGLOBIN (BEAKER) (test 26.0 pg 25.6-32.2 vbcm=766) MEAN CORPUSCULAR HEMOGLOBIN CONC (BEAKER) (test 34.9 GM/DL 32.2-35.5 bbge=457) RED CELL DISTRIBUTION WIDTH (BEAKER) (test 17.2 % 11.7-14.4 whwb=385) PLATELET COUNT (BEAKER) (test ppfk=070) 92 K/CU MM 150-450 MEAN PLATELET VOLUME (BEAKER) (test lkoz=425) 10.8 fL 9.4-12.3 NUCLEATED RED BLOOD CELLS (BEAKER) (test 1 /100 WBC 0-0 rhsc=969) NEUTROPHILS RELATIVE PERCENT (BEAKER) (test 81 % woao=082) LYMPHOCYTES RELATIVE PERCENT (BEAKER) (test 9 % yxqr=997) MONOCYTES RELATIVE PERCENT (BEAKER) (test 7 % bpui=239) EOSINOPHILS RELATIVE PERCENT (BEAKER) (test 1 % ibmz=116) BASOPHILS RELATIVE PERCENT (BEAKER) (test 0 % hxca=896) NEUTROPHILS ABSOLUTE COUNT (BEAKER) (test 12.06 K/ L 1.56-6.13 xymi=808) LYMPHOCYTES ABSOLUTE COUNT (BEAKER) (test 1.27 K/ L 1.18-3.74 ihca=742) MONOCYTES ABSOLUTE COUNT (BEAKER) (test krvr=667) 1.09 K/ L 0.24-0.36 EOSINOPHILS ABSOLUTE COUNT (BEAKER) (test 0.13 K/ L 0.04-0.36 vvaa=842) BASOPHILS ABSOLUTE COUNT (BEAKER) (test ngjx=661) 0.02 K/ L 0.01-0.08 IMMATURE GRANULOCYTES-RELATIVE PERCENT (BEAKER) 2 % 0-1 (test btur=3139) POCT-GLUCOSE [id number] 20:01:00 Test Item Value Reference Range Comments POC-GLUCOSE METER (BEAKER) 143 mg/dL 70-110 : TESTED AT [facility] [address] [facility] (test rsfb=2663) [facility], [address]: Dust Collector Treater/Commodity Management Specialist [id number] for Liban Kline BLOOD GAS, [id number] 19:54:00 Test Item Value Reference Range Comments PH ARTERIAL (BEAKER) (test tkqr=361) 7.57 7.35-7.45 PCO2 ARTERIAL (BEAKER) (test zexv=565) 27 mmHg 35-45 PO2 ARTERIAL (BEAKER) (test qihx=207) 75 mmHg 80-90 O2 SATURATION ARTERIAL (BEAKER) (test jvot=720) 96.2 % 96.0-97.0 HCO3 ARTERIAL (BEAKER) (test ktav=331) 24 mmol/L 21-29 BASE EXCESS ARTERIAL (BEAKER) (test ohnw=019) 2.3 mmol/L -2.0-3.0 PATIENT TEMPERATURE (BEAKER) (test suby=3128) 38.5 C FIO2 (BEAKER) (test qkiq=4028) 24.0 % POCT-GLUCOSE [id number] 19:01:00 Test Item Value Reference Range Comments POC-GLUCOSE METER (BEAKER) 155 mg/dL 70-110 : TESTED AT [place] [id number] [facility] (test mlch=8803) [facility], [id number]: Dust Collector Treater/Commodity Management Specialist [id number] for GIDEON WADDELL HEPATOBILIARY [id number] 18:38:00Please do at bedside. Thank you.FINAL REPORT PROCEDURE: HEPATOBILIARY SCAN CPT CODE: [id number] INDICATION: abdominal pain PROTOCOL: 5.3 mCi of [...] ALARCON MD on 10/07/2019 06:38 PMPOCT- GLUCOSE [id number] 16:52:00 Test Item Value Reference Range Comments POC-GLUCOSE METER (BEAKER) 166 mg/dL 70-110 : TESTED AT [facility] [address] [facility] (test sybe=6621) [place] [address]: Dust Collector Treater/Commodity Management Specialist [id number] for GIDEON WADDELL PT/[id number] 16:40:00 Test Item Value Reference Range Comments PROTIME (BEAKER) (test froz=293) 24.8 seconds 11.9-14.2 INR (BEAKER) (test svpt=474) 2.4 <=5.9 PARTIAL THROMBOPLASTIN TIME (BEAKER) (test 32.5 seconds 22.5-36.0 oaoo=076) Effective 04/25/2019: PT Reference Range ChangeNew: 11.9-14.2 Previous: 11.7- 14.7RECOMMENDED COUMADIN/WARFARIN INR THERAPY RANGESSTANDARD DOSE: 2.0-3.0 Includes: PROPHYLAXIS for venous thrombosis, systemic embolization; TREATMENT for venous thrombosis and/or pulmonary embolus.HIGH RISK: Target INR is2.5-3.5 for patients wiht mechanical heart valves.[id number] 16:40:00 Test Item Value Reference Range Comments FIBRINOGEN LEVEL (BEAKER) (test fmpt=446) 156 mg/dl 225-434 PROTHROMBIN TIME/[id number] 16:39:00 Test Item Value Reference Range Comments PROTIME (BEAKER) (test uzut=712) 24.8 seconds 11.9-14.2 INR (BEAKER) (test ovjz=728) 2.4 <=5.9 Effective 04/25/2019: PT Reference Range ChangeNew: 11.9-14.2 Previous: 11.7- 14.7RECOMMENDED COUMADIN/WARFARIN INR THERAPY RANGESSTANDARD DOSE: 2.0-3.0 Includes: PROPHYLAXIS for venous thrombosis, systemic embolization; TREATMENT for venous thrombosis and/or pulmonary embolus.HIGH RISK: Target INR is2.5-3.5 for patients wiht mechanical heart valves.[id number] 16:36:00 Test Item Value Reference Range Comments PHOSPHORUS (BEAKER) (test fmdb=953) 1.8 mg/dL 2.3-4.7 [id number] 16:36:00 Test Item Value Reference Range Comments MAGNESIUM (BEAKER) (test zanl=098) 2.5 mg/dL 1.6-2.6 BASIC METABOLIC [id number] 16:36:00 Test Item Value Reference Range Comments SODIUM (BEAKER) (test 139 meq/L 136-145 ijcm=073) POTASSIUM (BEAKER) (test 3.3 meq/L 3.5-5.1 nhqi=503) CHLORIDE (BEAKER) (test 105 meq/L 98-107 pgno=185) CO2 (BEAKER) (test 19 meq/L 22-29 huti=682) BLOOD UREA NITROGEN 25 mg/dL 7-21 (BEAKER) (test atwx=688) CREATININE (BEAKER) (test 1.29 mg/dL 0.57-1.25 lkzr=455) GLUCOSE RANDOM (BEAKER) 165 mg/dL 70-105 (test nvft=604) CALCIUM (BEAKER) (test 8.3 mg/dL 8.4-10.2 dmdg=200) EGFR (BEAKER) (test 43 mL/min/1.73 sq m ESTIMATED GFR IS NOT gjwn=3288) ACCURATE CREATININE CLEARANCE IN PREDICTING GLOMERULAR FILTRATION RATE. ESTIMATED GFR IS NOT APPLICABLE FOR DIALYSIS PATIENTS. BLOOD GAS, [id number] 16:22:00 Test Item Value Reference Range Comments PH ARTERIAL (BEAKER) (test rzmo=342) 7.54 7.35-7.45 PCO2 ARTERIAL (BEAKER) (test yurj=615) 28 mmHg 35-45 PO2 ARTERIAL (BEAKER) (test amtg=482) 101 mmHg 80-90 O2 SATURATION ARTERIAL (BEAKER) (test fcmn=422) 98.1 % 96.0-97.0 HCO3 ARTERIAL (BEAKER) (test snma=677) 23 mmol/L 21-29 BASE EXCESS ARTERIAL (BEAKER) (test nhln=211) 1.3 mmol/L -2.0-3.0 PATIENT TEMPERATURE (BEAKER) (test wbnh=8430) 38.0 C FIO2 (BEAKER) (test ztqm=7149) 25.0 % CBC W/PLT COUNT & AUTO [id number] 12:44:00 Test Item Value Reference Range Comments WHITE BLOOD CELL COUNT (BEAKER) (test zytz=836) 21.0 K/ L 3.5-10.5 RED BLOOD CELL COUNT (BEAKER) (test pcrj=402) 3.14 M/ L 3.93-5.22 HEMOGLOBIN (BEAKER) (test eqay=735) 8.4 GM/DL 11.2-15.7 HEMATOCRIT (BEAKER) (test xsmo=068) 24.5 % 34.1-44.9 MEAN CORPUSCULAR VOLUME (BEAKER) (test wdzh=548) 78.0 fL 79.4-94.8 MEAN CORPUSCULAR HEMOGLOBIN (BEAKER) (test 26.8 pg 25.6-32.2 ergs=375) MEAN CORPUSCULAR HEMOGLOBIN CONC (BEAKER) (test 34.3 GM/DL 32.2-35.5 wzam=577) RED CELL DISTRIBUTION WIDTH (BEAKER) (test 17.6 % 11.7-14.4 qfhw=502) PLATELET COUNT (BEAKER) (test yxnp=371) 103 K/CU MM 150-450 MEAN PLATELET VOLUME (BEAKER) (test erdo=687) 10.3 fL 9.4-12.3 NUCLEATED RED BLOOD CELLS (BEAKER) (test 0 /100 WBC 0-0 obej=496) NEUTROPHILS RELATIVE PERCENT (BEAKER) (test 83 % xzjd=994) LYMPHOCYTES RELATIVE PERCENT (BEAKER) (test 7 % wbwl=709) MONOCYTES RELATIVE PERCENT (BEAKER) (test 6 % tciv=794) EOSINOPHILS RELATIVE PERCENT (BEAKER) (test 1 % ntfx=268) BASOPHILS RELATIVE PERCENT (BEAKER) (test 0 % vaiv=449) NEUTROPHILS ABSOLUTE COUNT (BEAKER) (test 17.33 K/ L 1.56-6.13 vgxt=026) LYMPHOCYTES ABSOLUTE COUNT (BEAKER) (test 1.54 K/ L 1.18-3.74 mswa=927) MONOCYTES ABSOLUTE COUNT (BEAKER) (test 1.34 K/ L 0.24-0.36 hfxc=324) EOSINOPHILS ABSOLUTE COUNT (BEAKER) (test 0.16 K/ L 0.04-0.36 fvmv=423) BASOPHILS ABSOLUTE COUNT (BEAKER) (test 0.04 K/ L 0.01-0.08 hhgq=513) IMMATURE GRANULOCYTES-RELATIVE PERCENT (BEAKER) 3 % 0-1 (test wlra=3780) POCT-GLUCOSE [id number] 12:23:00 Test Item Value Reference Range Comments POC-GLUCOSE METER (BEAKER) 145 mg/dL 70-110 : TESTED AT [facility] [address] [facility] (test sqdd=9899) [facility], [id number]: Dust Collector Treater/Commodity Management Specialist PE=[id number] for GIDEON WADDELL [id number] 12:06:00 Test Item Value Reference Range Comments T4 TOTAL (BEAKER) (test sxvq=710) 4.6 ug/dL 4.9-11.7 [id number] 10:00:00 Test Item Value Reference Range Comments PHOSPHORUS (BEAKER) (test eawv=888) 2.8 mg/dL 2.3-4.7 [id number] 10:00:00 Test Item Value Reference Range Comments MAGNESIUM (BEAKER) (test bpfm=775) 2.0 mg/dL 1.6-2.6 BASIC METABOLIC [id number] 10:00:00 Test Item Value Reference Range Comments SODIUM (BEAKER) (test 137 meq/L 136-145 latu=680) POTASSIUM (BEAKER) (test 3.1 meq/L 3.5-5.1 gpwn=432) CHLORIDE (BEAKER) (test 106 meq/L 98-107 cjep=936) CO2 (BEAKER) (test 16 meq/L 22-29 osai=001) BLOOD UREA NITROGEN 28 mg/dL 7-21 (BEAKER) (test zhfr=389) CREATININE (BEAKER) (test 1.23 mg/dL 0.57-1.25 enuj=803) GLUCOSE RANDOM (BEAKER) 169 mg/dL 70-105 (test ktsv=315) CALCIUM (BEAKER) (test 8.0 mg/dL 8.4-10.2 rezk=117) EGFR (BEAKER) (test 45 mL/min/1.73 sq m ESTIMATED GFR IS NOT ldll=4052) ACCURATE CREATININE CLEARANCE IN PREDICTING GLOMERULAR FILTRATION RATE. ESTIMATED GFR IS NOT APPLICABLE FOR DIALYSIS PATIENTS. POCT-GLUCOSE [id number] 08:15:00 Test Item Value Reference Range Comments POC-GLUCOSE METER (BEAKER) 174 mg/dL 70-110 : TESTED AT [facility] [address] (test wenc=0949) [facility], [address]: Dust Collector Treater/Commodity Management Specialist [phone] for GIDEON WADDELL RAD, CHEST, 1 VIEW, NON [id number] 05:39:00Reason for exam:-> intubatedShould this be performed [...] MDReport Verified Date/Time: 10/07/2019 05:39:22 BLOOD GAS, [id number] 05:29: 00 Test Item Value Reference Range Comments PH ARTERIAL (BEAKER) (test gpmz=569) 7.43 7.35-7.45 PCO2 ARTERIAL (BEAKER) (test dmkc=140) 28 mmHg 35-45 PO2 ARTERIAL (BEAKER) (test hexa=078) 113 mmHg 80-90 O2 SATURATION ARTERIAL (BEAKER) (test jxjp=249) 98.1 % 96.0-97.0 HCO3 ARTERIAL (BEAKER) (test rxgg=510) 18 mmol/L 21-29 BASE EXCESS ARTERIAL (BEAKER) (test ahzz=051) -5.2 mmol/L -2.0-3.0 PATIENT TEMPERATURE (BEAKER) (test xpny=8953) 38.5 C FIO2 (BEAKER) (test gbks=5371) 40.0 % [id number] 05:07:00 Test Item Value Reference Range Comments D-DIMER QUANTITATIVE (BEAKER) (test zwsm=173) > MG/L FEU <0.50 Intended Use: The [...] of thrombosis is within 95-100% range.COMPREHENSIVE METABOLIC [id number] 04:59:00 Test Item Value Reference Range Comments TOTAL PROTEIN (BEAKER) 5.1 gm/dL 6.0-8.3 (test pclm=734) ALBUMIN (BEAKER) (test 3.3 g/dL 3.5-5.0 idpi=5991) ALKALINE PHOSPHATASE 201 U/L 40-150 (BEAKER) (test gfnx=754) BILIRUBIN TOTAL (BEAKER) 2.1 mg/dL 0.2-1.2 (test ktrr=865) SODIUM (BEAKER) (test 135 meq/L 136-145 cqof=112) POTASSIUM (BEAKER) (test 3.7 meq/L 3.5-5.1 aqdq=779) CHLORIDE (BEAKER) (test 110 meq/L 98-107 dwib=510) CO2 (BEAKER) (test 11 meq/L 22-29 nnmk=082) BLOOD UREA NITROGEN 30 mg/dL 7-21 (BEAKER) (test vwyb=057) CREATININE (BEAKER) (test 1.16 mg/dL 0.57-1.25 lqkh=786) GLUCOSE RANDOM (BEAKER) 141 mg/dL 70-105 (test xonx=068) CALCIUM (BEAKER) (test 7.5 mg/dL 8.4-10.2 jcqm=585) AST (SGOT) (BEAKER) (test 1933 U/L 5-34 vmwx=157) ALT (SGPT) (BEAKER) (test 2826 U/L 6-55 ztgw=785) EGFR (BEAKER) (test 49 mL/min/1.73 sq m ESTIMATED GFR IS NOT rbbt=3278) ACCURATE CREATININE CLEARANCE IN PREDICTING GLOMERULAR FILTRATION RATE. ESTIMATED GFR IS NOT APPLICABLE FOR DIALYSIS PATIENTS. CBC W/PLT COUNT & AUTO [id number] 04:32:00 Test Item Value Reference Range Comments WHITE BLOOD CELL COUNT (BEAKER) (test ilgj=007) 17.4 K/ L 3.5-10.5 RED BLOOD CELL COUNT (BEAKER) (test vhqm=767) 3.17 M/ L 3.93-5.22 HEMOGLOBIN (BEAKER) (test tsnm=212) 8.3 GM/DL 11.2-15.7 HEMATOCRIT (BEAKER) (test jdls=201) 24.5 % 34.1-44.9 MEAN CORPUSCULAR VOLUME (BEAKER) (test jrwh=696) 77.3 fL 79.4-94.8 MEAN CORPUSCULAR HEMOGLOBIN (BEAKER) (test 26.2 pg 25.6-32.2 oozx=935) MEAN CORPUSCULAR HEMOGLOBIN CONC (BEAKER) (test 33.9 GM/DL 32.2-35.5 vvla=505) RED CELL DISTRIBUTION WIDTH (BEAKER) (test 17.6 % 11.7-14.4 pxke=379) PLATELET COUNT (BEAKER) (test xezk=396) 88 K/CU MM 150-450 MEAN PLATELET VOLUME (BEAKER) (test vvni=088) 9.7 fL 9.4-12.3 NUCLEATED RED BLOOD CELLS (BEAKER) (test 1 /100 WBC 0-0 smra=376) NEUTROPHILS RELATIVE PERCENT (BEAKER) (test 83 % gqnh=633) LYMPHOCYTES RELATIVE PERCENT (BEAKER) (test 9 % nidz=749) MONOCYTES RELATIVE PERCENT (BEAKER) (test 5 % atlv=896) EOSINOPHILS RELATIVE PERCENT (BEAKER) (test 1 % tckp=307) BASOPHILS RELATIVE PERCENT (BEAKER) (test 0 % cqcq=845) NEUTROPHILS ABSOLUTE COUNT (BEAKER) (test 14.45 K/ L 1.56-6.13 cftd=188) LYMPHOCYTES ABSOLUTE COUNT (BEAKER) (test 1.50 K/ L 1.18-3.74 bcod=973) MONOCYTES ABSOLUTE COUNT (BEAKER) (test xusz=644) 0.91 K/ L 0.24-0.36 EOSINOPHILS ABSOLUTE COUNT (BEAKER) (test 0.14 K/ L 0.04-0.36 sjvi=109) BASOPHILS ABSOLUTE COUNT (BEAKER) (test rbex=148) 0.02 K/ L 0.01-0.08 IMMATURE GRANULOCYTES-RELATIVE PERCENT (BEAKER) 2 % 0-1 (test onwi=1750) [id number] 04:30:00 Test Item Value Reference Range Comments PHOSPHORUS (BEAKER) (test lpxz=833) 3.1 mg/dL 2.3-4.7 [id number] 04:30:00 Test Item Value Reference Range Comments MAGNESIUM (BEAKER) (test cmpn=360) 1.8 mg/dL 1.6-2.6 POCT-GLUCOSE [id number] 04:25:00 Test Item Value Reference Range Comments POC-GLUCOSE METER (BEAKER) 126 mg/dL 70-110 : TESTED AT [address] (test xcrr=8694) [facility], [id number]: Dust Collector Treater/Commodity Management Specialist [id number] for Liban Kline [id number] 04:18:00 Test Item Value Reference Range Comments FIBRINOGEN LEVEL (BEAKER) (test jkwn=460) 173 mg/dl 225-434 [id number] 04:14:00 Test Item Value Reference Range Comments PROTIME (BEAKER) (test kbcd=720) 25.9 seconds 11.9-14.2 INR (BEAKER) (test bghe=906) 2.5 <=5.9 PARTIAL THROMBOPLASTIN TIME (BEAKER) (test 34.5 seconds 22.5-36.0 nrsl=241) Effective 04/25/2019: PT Reference Range ChangeNew: 11.9-14.2 Previous: 11.7- 14.7RECOMMENDED COUMADIN/WARFARIN INR THERAPY RANGESSTANDARD DOSE: 2.0-3.0 Includes: PROPHYLAXIS for venous thrombosis, systemic embolization; TREATMENT for venous thrombosis and/or pulmonary embolus.HIGH RISK: Target INR is2.5-3.5 for patients wiht mechanical heart valves.LACTIC ACID, [id number] 04:13:00 Test Item Value Reference Range Comments LACTATE BLOOD VENOUS (2) (BEAKER) (test 1.2 mmol/L 0.5-2.2 fzko=7869) POCT-GLUCOSE [id number] 01:33:00 Test Item Value Reference Range Comments POC-GLUCOSE METER (BEAKER) 103 mg/dL 70-110 : TESTED AT [address] (test isgg=8716) [facility], [address]: Dust Collector Treater/Commodity Management Specialist [phone] for GISELE GUSTAFSON HEMOGLOBIN AND [id number] 00:27:00 Test Item Value Reference Range Comments HEMOGLOBIN (BEAKER) (test yutm=461) 8.6 GM/DL 11.2-15.7 HEMATOCRIT (BEAKER) (test wcjq=722) 26.2 % 34.1-44.9 POCT-GLUCOSE [id number] 22:58:00 Test Item Value Reference Range Comments POC-GLUCOSE METER (BEAKER) 146 mg/dL 70-110 : TESTED AT [facility] [address] [facility] (test jkri=2108) [facility], [address]: Dust Collector Treater/Commodity Management Specialist [phone] for GISELE GUSTAFSON RAD, CHEST, 1 VIEW, NON [id number] 21:37:00Reason for exam:->line placement, right IJShould this [...] surgical changes the left clavicle. Signed: [facility] Verified Date/Time: 10/06/2019 21:37:58 BASI METABOLIC [id number] 20:04:00 Test Item Value Reference Range Comments SODIUM (BEAKER) (test 137 meq/L 136-145 uilz=596) POTASSIUM (BEAKER) (test 3.1 meq/L 3.5-5.1 Specimen slightly bjyj=549) hemolyzed CHLORIDE (BEAKER) (test 112 meq/L 98-107 mjom=406) CO2 (BEAKER) (test 10 meq/L 22-29 zmuw=296) BLOOD UREA NITROGEN 37 mg/dL 7-21 (BEAKER) (test kfnq=653) CREATININE (BEAKER) (test 1.21 mg/dL 0.57-1.25 Specimen slightly kxnv=167) hemolyzed GLUCOSE RANDOM (BEAKER) 170 mg/dL 70-105 (test cbme=576) CALCIUM (BEAKER) (test 7.9 mg/dL 8.4-10.2 djtr=143) EGFR (BEAKER) (test 46 mL/min/1.73 sq m ESTIMATED GFR IS NOT wpxj=6705) ACCURATE CREATININE CLEARANCE IN PREDICTING GLOMERULAR FILTRATION RATE. ESTIMATED GFR IS NOT APPLICABLE FOR DIALYSIS PATIENTS. PROTEIN, RANDOM [id number] 19:50:00 Test Item Value Reference Range Comments PROTEIN, URINE (BEAKER) (test uftl=4346) 83 mg/dL 0-14 CREATININE, RANDOM [id number] 19:28:00 Test Item Value Reference Range Comments CREATININE URINE (BEAKER) (test zplv=719) 37.6 mg/dL Reference Range: No [id number] 19:00:00 Test Item Value Reference Range Comments MAGNESIUM (BEAKER) (test 2.0 mg/dL 1.6-2.6 Specimen slightly hemolyzed hinj=951) [id number] 19:00:00 Test Item Value Reference Range Comments PHOSPHORUS (BEAKER) (test 1.8 mg/dL 2.3-4.7 Specimen slightly hemolyzed vpok=400) CBC (HEMOGRAM ONLY)2019-10-06 18:59:00 Test Item Value Reference Range Comments WHITE BLOOD CELL COUNT (BEAKER) (test evgz=737) 16.6 K/ L 3.5-10.5 RED BLOOD CELL COUNT (BEAKER) (test dosg=766) 2.45 M/ L 3.93-5.22 HEMOGLOBIN (BEAKER) (test zwqy=170) 6.8 GM/DL 11.2-15.7 HEMATOCRIT (BEAKER) (test eplg=991) 18.2 % 34.1-44.9 MEAN CORPUSCULAR VOLUME (BEAKER) (test aepe=061) 74.3 fL 79.4-94.8 MEAN CORPUSCULAR HEMOGLOBIN (BEAKER) (test 27.8 pg 25.6-32.2 dbxo=122) MEAN CORPUSCULAR HEMOGLOBIN CONC (BEAKER) (test 37.4 GM/DL 32.2-35.5 cnwg=647) RED CELL DISTRIBUTION WIDTH (BEAKER) (test 16.5 % 11.7-14.4 mejb=934) PLATELET COUNT (BEAKER) (test uyyu=613) 96 K/CU MM 150-450 MEAN PLATELET VOLUME (BEAKER) (test rthg=313) 9.5 fL 9.4-12.3 NUCLEATED RED BLOOD CELLS (BEAKER) (test 0 /100 WBC 0-0 hnfw=745) LACTIC ACID, [id number] 18:55:00 Test Item Value Reference Range Comments LACTATE BLOOD VENOUS (2) 1.9 mmol/L 0.5-2.2 Specimen slightly hemolyzed (BEAKER) (test uytd=5448) VITAMIN B12 AND [id number] 18:36:00 Test Item Value Reference Range Comments VITAMIN B12 (BEAKER) (test qjji=848) > pg/mL 213-816 FOLATE (BEAKER) (test rifh=795) 17.3 ng/mL >=7.0 BLOOD GAS, [id number] 18:29:00 Test Item Value Reference Range Comments PH ARTERIAL (BEAKER) (test iukk=940) 7.41 7.35-7.45 PCO2 ARTERIAL (BEAKER) (test grun=193) 25 mmHg 35-45 PO2 ARTERIAL (BEAKER) (test iiap=595) 88 mmHg 80-90 O2 SATURATION ARTERIAL (BEAKER) (test oajc=947) 96.6 % 96.0-97.0 HCO3 ARTERIAL (BEAKER) (test odbl=658) 15 mmol/L 21-29 BASE EXCESS ARTERIAL (BEAKER) (test dxnb=042) -8.0 mmol/L -2.0-3.0 PATIENT TEMPERATURE (BEAKER) (test mtmn=6683) 38.0 C FIO2 (BEAKER) (test zyne=1743) 40.0 % BASIC METABOLIC [id number] 17:47:00 Test Item Value Reference Range Comments SODIUM (BEAKER) (test 138 meq/L 136-145 ahox=239) POTASSIUM (BEAKER) (test 4.1 meq/L 3.5-5.1 whcn=754) CHLORIDE (BEAKER) (test 113 meq/L 98-107 vadl=784) CO2 (BEAKER) (test 10 meq/L 22-29 bguo=974) BLOOD UREA NITROGEN 37 mg/dL 7-21 (BEAKER) (test iany=724) CREATININE (BEAKER) (test 1.19 mg/dL 0.57-1.25 svbm=061) GLUCOSE RANDOM (BEAKER) 137 mg/dL 70-105 (test guvs=743) CALCIUM (BEAKER) (test 8.1 mg/dL 8.4-10.2 rzkw=770) EGFR (BEAKER) (test 47 mL/min/1.73 sq m ESTIMATED GFR IS NOT hkcv=7781) ACCURATE CREATININE CLEARANCE IN PREDICTING GLOMERULAR FILTRATION RATE. ESTIMATED GFR IS NOT APPLICABLE FOR DIALYSIS PATIENTS. POCT-GLUCOSE [id number] 17:39:00 Test Item Value Reference Range Comments POC-GLUCOSE METER (BEAKER) 188 mg/dL 70-110 : TESTED AT [address] (test jazw=4994) [facility], [address]: Dust Collector Treater/Commodity Management Specialist [id number] for GIDEON WADDELL LIPID [id number] 17:28:00 Test Item Value Reference Range Comments TRIGLYCERIDES (BEAKER) (test gvqu=111) 182 mg/dL CHOLESTEROL (BEAKER) (test xvhw=634) 106 mg/dL HDL CHOLESTEROL (BEAKER) (test iipt=370) 20 mg/dL LDL CHOLESTEROL CALCULATED (BEAKER) (test 50 mg/dL keuf=053) Triglyceride Reference Range: Low Risk <150 Borderline 150- 199 High Risk 200-499 Very High Risk >=500Cholesterol Reference Range: Low Risk <200 Borderline 200-239 High Risk > 240HDL Cholesterol Reference Range: Low Risk >=60 High Risk <40LDL Cholesterol Reference Range: Optimal <100 Near Optimal 100-129 Borderline 130-159 High 160-189 Very High >=190URIC [id number] 17:28:00 Test Item Value Reference Range Comments URIC ACID (BEAKER) (test vpqs=321) 7.3 mg/dL 2.6-7.2 HEMOGLOBIN [id number] 16:13:00 Test Item Value Reference Range Comments HEMOGLOBIN A1C (JASON) (test illi=831) 6.0 % 4.3-6.1 HEPATITIS A ANTIBODY, [id number] 16:13:00 Test Item Value Reference Range Comments HEPATITIS A IGG ANTIBODY (JASON) (test xdbo=9159) Reactive Nonreactive CARCINOEMBRYONIC ANTIGEN (CEA)2019-10-06 16:08:00 Test Item Value Reference Range Comments CARCINOEMBRYONIC ANTIGEN (BEAKER) (test gdvq=747) 23.1 ng/mL 0.0-5.0 VITAMIN D, [id number] 16:08:00 Test Item Value Reference Range Comments VITAMIN D 25-OH (JASON) (test kjno=9370) 10.1 ng/mL 6.6-49.9 Effective 09/07/2017: Reference Range ChangeNew: 6.6-49.9 ng/mL Previous: 13.0 -47.8 ng/mLRecommended Vitamin D Target Range: 30.0-40.0 ng/[id number] 15:52:00 Test Item Value Reference Range Comments TRANSFERRIN (JASON) (test wnrw=528) 218 mg/dL 174-382 [id number] 15:09:00 Test Item Value Reference Range Comments PHOSPHORUS (BEDIAN) (test tjwp=757) 1.7 mg/dL 2.3-4.7 U/S, ABDOMINAL, WITH [id number] 15:01:00Reason for exam:->acute liver injury, ? cholecystitis, [...] MDReport Verified Date/Time: 10/06/2019 15:01:21 Reading Location: [address] Consult Reading Room PREGNANCY SCREEN, [id number] 14:58: 00 Test Item Value Reference Range Comments TEST URINE (BEAKER) (test pkpc=910) Negative POCT-GLUCOSE [id number] 12:44:00 Test Item Value Reference Range Comments POC-GLUCOSE METER (BEAKER) 156 mg/dL 70-110 : TESTED AT [facility] [address] [facility] (test ppma=3694) [facility], [address]: Dust Collector Treater/Commodity Management Specialist [id number] for GIDEON WADDELL [id number] 12:39:00 Test Item Value Reference Range Comments RPR SCREEN (BEAKER) (test gxqd=070) Nonreactive Nonreactive B-TYPE NATRIURETIC FACTOR (BNP)2019-10-06 11:57:00 Test Item Value Reference Range Comments B-TYPE NATRIURETIC PEPTIDE (BEAKER) (test 3996 pg/mL 0-100 rmxe=830) [id number] 11:51:00 Test Item Value Reference Range Comments MAGNESIUM (BEAKER) (test zrvd=161) 2.2 mg/dL 1.6-2.6 BLOOD GAS, [id number] 11:50:00 Test Item Value Reference Range Comments PH VENOUS (BEAKER) (test msom=163) 7.34 7.32-7.42 PCO2 VENOUS (BEAKER) (test dbbq=847) 23 mmHg 41-51 PO2 VENOUS (BEAKER) (test qftp=866) 70 mmHg 25-40 O2 SATURATION VENOUS (BEAKER) (test ubjz=866) 93.2 % 40.0-70.0 HCO3 VENOUS (BEAKER) (test parz=548) 12 mmol/L 21-29 BASE EXCESS VENOUS (BEAKER) (test dqxb=682) -12.0 mmol/L -2.0-3.0 PATIENT TEMPERATURE (BEAKER) (test ccfp=6863) 37.4 C FIO2 (BEAKER) (test nfut=0848) 50.0 % RESPIRATORY PANEL [id number] 11:35:00 Test Item Value Reference Range Comments HUMAN METAPNEUMOVIRUS (BEAKER) (test Not detected Not detected, Equivocal sqjb=5546) RHINOVIRUS (BEAKER) (test gruk=6017) Not detected Not detected, Equivocal INFLUENZA A (BEAKER) (test dbyi=5041) Not detected Not detected, Equivocal INFLUENZA A (NO SUBTYPE) (test cvoz=1750) INFLUENZA A SUBTYPE H1 (BEAKER) (test rzha=0077) INFLUENZA A SUBTYPE H3 (BEAKER) (test vibk=6006) INFLUENZA A SUBTYPE H1-2009 (BEAKER) (test ujzu=7887) INFLUENZA B (BEAKER) (test xsxr=2722) Not detected Not detected, Equivocal RESPIRATORY SYNCYTIAL VIRUS (BEAKER) Not detected Not detected, Equivocal (test clqp=4771) PARAINFLUENZA VIRUS 1 (BEAKER) (test Not detected Not detected, Equivocal ultd=6156) PARAINFLUENZA VIRUS 2 (BEAKER) (test Not detected Not detected, Equivocal arhy=8919) PARAINFLUENZA VIRUS 3 (BEAKER) (test Not detected Not detected, Equivocal dupd=2362) PARAINFLUENZA VIRUS 4 (BEAKER) (test Not detected Not detected, Equivocal oeqz=4047) ADENOVIRUS (BEAKER) (test itbp=1621) Not detected Not detected, Equivocal CORONAVIRUS 229E (BEAKER) (test Not detected Not detected, Equivocal ebtt=5150) CORONAVIRUS HKU1 (BEAKER) (test Not detected Not detected, Equivocal uvwv=0011) CORONAVIRUS NL63 (BEAKER) (test Not detected Not detected, Equivocal wkfp=8000) CORONAVIRUS OC43 (BEAKER) (test Not detected Not detected, Equivocal gpnw=3511) BORDETELLA PERTUSSIS (BEAKER) (test Not detected Not detected, Equivocal bwrq=7446) CHLAMYDOPHILA PNEUMONIAE (BEAKER) (test Not detected Not detected, Equivocal crmq=1987) MYCOPLASMA PNEUMONIAE (BEAKER) (test Not detected Not detected, Equivocal bbyf=0789) Other viruses and bacteria not targeted by this PCR panel cannot be excluded; therefore clinical correlation and follow up of serology, culture results, and other molecular studies is required. The results are not intended to be used as the sole means for clinical diagnosis or patient management decisions. This sample was tested at the [facility] Molecular Diagnostics Laboratory using the poLightArray Respiratory Panel. It is FDA cleared and has been verified and approved by the [facility] for clinical use on nasopharyngeal swab specimens.The performance of the FilmArrayRP has not been established in individuals who received influenza vaccine. Recent administration ofa nasal influenza vaccine may cause false positive results for Influenza A and/orInfluenza B.RETICULOCYTE [id number] 11:32:00 Test Item Value Reference Range Comments RETICULOCYTE COUNT PCT (BEAKER) (test suxd=052) 2.1 % 0.5-1.7 KETONE, [id number] 11:30:00 Test Item Value Reference Range Comments KETONES, BLOOD (BEAKER) (test bnoy=3990) 0.3 mmol/L <0.4 LEGIONELLA ANTIGEN, [id number] 09:37:00 Test Item Value Reference Range Comments L. PNEUMOPHILA SEROGP 1 Negative - see Negative for L. UR AG (BEAKER) (test comment pneumophila serogroup 1 juka=2154) antigen, suggesting no recent or current infection with this serogroup. Legionellosis cannot be ruled out since other serogroups and species may cause disease. STREP PNEUMONIAE [id number] 09:37:00 Test Item Value Reference Range Comments STREP PNEUMONIAE ANTIGEN Presumptive negative for Presumptive negative for (BEAKER) (test pneumococcal pneumonia - pneumococcal pneumonia - kvqu=2408) see comment see commen Presumptive negative for pneumococcal pneumonia, suggesting no current or recent pneumococcal infection. Infection due to S. pneumoniae cannot be ruled out since the antigen present in the sample may be below the detection limit of the test.POCT-GLUCOSE [id number] 08:45:00 Test Item Value Reference Range Comments POC-GLUCOSE METER (BEAKER) 119 mg/dL 70-110 : TESTED AT [facility] [address] [facility] (test wbpg=3958) [facility], [address]: Dust Collector Treater/Commodity Management Specialist [phone]=[id number] for GIDEON WADDELL RAD, CHEST, 1 VIEW, NON [id number] 08:37:00Post-intubationReason for exam:-& gt;intubationShould this be performed [...] MDReport Verified Date/Time: 10/06/2019 08:37:13 Reading Location: [address] Consult Reading Room [id number] 07:44:00 Test Item Value Reference Range Comments PROCALCITONIN (BEAKER) (test jcdp=9294) 0.97 ng/mL <0.05 SEPSIS RISK (ng/mL)Low: 0.05-0.50Intermediate: 0.51-2.00High: & gt;=2.01URINALYSIS W/ REFLEX URINE [id number] 07:15:00 Test Item Value Reference Range Comments COLOR (BEAKER) (test whnt=535) Yellow CLARITY (BEAKER) (test vvnl=434) Clear SPECIFIC GRAVITY UA (BEAKER) (test nzog=249) 1.014 1.001-1.035 PH UA (BEAKER) (test gjst=977) 6.5 5.0-8.0 PROTEIN UA (BEAKER) (test oydq=869) 20 mg/dL Negative GLUCOSE UA (BEAKER) (test tgah=251) Negative Negative KETONES UA (BEAKER) (test vuiz=825) Negative Negative BILIRUBIN UA (BEAKER) (test yqfq=919) Negative Negative BLOOD UA (BEAKER) (test rwbr=366) Moderate Negative NITRITE UA (BEAKER) (test sozz=580) Negative Negative LEUKOCYTE ESTERASE UA (BEAKER) (test jqmg=257) Negative Negative UROBILINOGEN UA (BEAKER) (test wvdx=569) 0.2 mg/dL 0.2-1.0 RBC UA (BEAKER) (test zvhj=164) 16 /HPF WBC UA (BEAKER) (test pwhb=123) 1 /HPF BACTERIA (BEAKER) (test xwgf=484) Rare SQUAMOUS EPITHELIAL (BEAKER) (test eklq=749) < /HPF AMORPHOUS CRYSTALS (BEAKER) (test fyfl=2417) Rare SOURCE(BEAKER) (test arwd=1252) ALPHA FETOPROTEIN (AFP), TUMOR [id number] 06:49:00 Test Item Value Reference Range Comments ALPHA-FETOPROTEIN (BEAKER) (test brbx=6198) < ng/mL <10.0 For 1 occurencesHEPATITIS B SURFACE [id number] 06:49:00 Test Item Value Reference Range Comments HEPATITIS B SURFACE ANTIBODY (BEAKER) (test < mIU/mL <8.0 xofr=849) For 1 occurencesRAPID DRUG SCREEN, [id number] 06:33:00 Test Item Value Reference Range Comments BARBITURATE URINE (BEAKER) (test incg=337) Negative Negative BENZODIAZEPINE SCREEN URINE (BEAKER) (test Negative Negative kadg=566) COCAINE (METAB.) SCREEN (BEAKER) (test hbjq=7154) Negative Negative METHADONE SCREEN (BEAKER) (test mlnq=2853) Negative Negative OPIATE SCREEN URINE (BEAKER) (test sxdm=093) Positive Negative CANNABINOID SCREEN URINE (BEAKER) (test pbiv=001) Negative Negative AMPH/METHAMPH SCREEN (BEAKER) (test dxry=8446) Negative Negative PHENCYCLIDINE SCREEN URINE (BEAKER) (test xsvk=145) Negative Negative DRUG CUTOFF CONC.Cocaine 300 ng/mL Cannabinoid 50 ng/mLBenzodiazepine 200 ng/mLBarbiturate 200 ng/ mLPhencyclidine 25 ng/mLOpiate 300 ng/mLMethadone 300 ng/mLAmphetamine/ 1000 ng/mL MethamphetamineThis assay provides an unconfirmed qualitative test result for the clinical management of patients in emergency situations. Chain of custody not maintained. Some shcb-skd-ylfmoro medications, as well as adulterants, may cause inaccurate results. Clinical correlation should be applied. A more comprehensivedrug screen or confirmation of a detected drug may be performed upon request.CREATININE, RANDOM [id number] 06:30:00 Test Item Value Reference Range Comments CREATININE URINE (BEAKER) (test jzro=035) 38.0 mg/dL Reference Range: No NormalsSODIUM, RANDOM [id number] 06:30:00 Test Item Value Reference Range Comments SODIUM URINE (BEAKER) (test ikvb=874) 51 meq/L Reference Range: No NormalsHEPATITIS B CORE ANTIBODY, [id number] 06:27:00 Test Item Value Reference Range Comments HEPATITIS B CORE TOTAL ANTIBODY (BEAKER) (test Nonreactive Nonreactive rsal=684) For 1 [id number] 05:50:00 Test Item Value Reference Range Comments FERRITIN (BEAKER) (test zkwg=166) 1588 ng/mL 5-275 For 1 occurencesACETAMINOPHEN [id number] 05:30:00 Test Item Value Reference Range Comments ACETAMINOPHEN LEVEL (BEAKER) (test lczk=411) < ug/mL 10.0-30.0 Therapeutic Range: 10.0-30.0 g/mLToxic Levels: >200.0 g/mLFor 1 [id number] 05:20:00 Test Item Value Reference Range Comments ALPHA-1 ANTITRYPSIN (BEAKER) (test onkp=502) 266.90 mg/dL 90.00-200.00 [id number] 05:17:00 Test Item Value Reference Range Comments THYROID STIMULATING HORMONE (BEAKER) (test 0.75 uIU/mL 0.35-4.94 arna=917) HEPATITIS PANEL, [id number] 05:17:00 Test Item Value Reference Range Comments HEPATITIS A IGM ANTIBODY (BEAKER) (test Nonreactive Nonreactive chxy=623) HEPATITIS B CORE IGM ANTIBODY (BEAKER) (test Nonreactive Nonreactive emir=559) HEPATITIS C ANTIBODY (BEAKER) (test mnka=352) Nonreactive Nonreactive HEPATITIS B SURFACE ANTIGEN (2) (BEAKER) (test Nonreactive Nonreactive jetv=0023) HIV-1 ANTIGEN WITH HIV-1/2 [id number] 05:17:00 Test Item Value Reference Range Comments HIV-1 ANTIGEN WITH HIV 1\T\2 ANTIBODY (2) Nonreactive Nonreactive (BEAKER) (test nzde=3287) BASIC METABOLIC [id number] 05:09:00 Test Item Value Reference Range Comments SODIUM (BEAKER) (test 138 meq/L 136-145 xfmd=510) POTASSIUM (BEAKER) (test 3.3 meq/L 3.5-5.1 lmfz=220) CHLORIDE (BEAKER) (test 112 meq/L 98-107 blsw=200) CO2 (BEAKER) (test 13 meq/L 22-29 cjzo=684) BLOOD UREA NITROGEN 42 mg/dL 7-21 (BEAKER) (test janv=336) CREATININE (BEAKER) (test 1.20 mg/dL 0.57-1.25 kgog=145) GLUCOSE RANDOM (BEAKER) 121 mg/dL 70-105 (test qybt=408) CALCIUM (BEAKER) (test 7.7 mg/dL 8.4-10.2 gfmz=932) EGFR (BEAKER) (test 47 mL/min/1.73 sq m ESTIMATED GFR IS NOT yext=1913) ACCURATE CREATININE CLEARANCE IN PREDICTING GLOMERULAR FILTRATION RATE. ESTIMATED GFR IS NOT APPLICABLE FOR DIALYSIS PATIENTS. HEPATIC FUNCTION [id number] 05:09:00 Test Item Value Reference Range Comments TOTAL PROTEIN (BEAKER) (test rtvi=032) 5.5 gm/dL 6.0-8.3 ALBUMIN (BEAKER) (test rxwi=8813) 3.1 g/dL 3.5-5.0 BILIRUBIN TOTAL (BEAKER) (test ydgq=788) 1.3 mg/dL 0.2-1.2 BILIRUBIN DIRECT (BEAKER) (test flpc=286) 1.0 mg/dL 0.1-0.5 ALKALINE PHOSPHATASE (BEAKER) (test kvnc=007) 231 U/L 40-150 AST (SGOT) (BEAKER) (test ncru=072) > U/L 5-34 ALT (SGPT) (BEAKER) (test ijzr=734) > U/L 6-55 [id number] 05:07:00 Test Item Value Reference Range Comments PHOSPHORUS (BEAKER) (test nbsl=638) 3.6 mg/dL 2.3-4.7 [id number] 05:07:00 Test Item Value Reference Range Comments MAGNESIUM (BEAKER) (test hmvt=634) 2.2 mg/dL 1.6-2.6 CREATINE KINASE (CK)2019-10-06 05:07:00 Test Item Value Reference Range Comments CREATINE KINASE TOTAL (BEAKER) (test djfs=203) 1901 U/L 29-200 GAMMA GLUTAMYL TRANSFERASE (GGT)2019-10-06 05:07:00 Test Item Value Reference Range Comments GAMMA GLUTAMYL TRANSFERASE (BEAKER) (test wrwb=558) 111 U/L 9-64 LACTIC ACID, [id number] 04:58:00 Test Item Value Reference Range Comments LACTATE BLOOD ARTERIAL (2) (BEAKER) (test 1.5 mmol/L 0.5-2.2 siqd=9582) [id number] 04:56:00 Test Item Value Reference Range Comments ETHANOL (BEAKER) (test enwi=587) < mg/dL <=10 [id number] 04:54:00 Test Item Value Reference Range Comments AMMONIA (BEAKER) (test hbac=404) 144 mol/L 18-72 IMMUNOGLOBULIN G (IGG)2019-10-06 04:54:00 Test Item Value Reference Range Comments IMMUNOGLOBULIN G (IGG) (BEAKER) (test fglf=828) 679 mg/dL 540-1,822 IRON, TIBC, % SAT. (WITHOUT FERRITIN)2019-10-06 04:54:00 Test Item Value Reference Range Comments IRON (BEAKER) (test yxpn=343) 57.0 ug/dL 40.0-160.0 TOTAL IRON BINDING CAPACITY (BEAKER) (test 308 ug/dL 250-450 yvpm=731) IRON % SATURATION (2) (BEAKER) (test geqm=7169) 19 % 20-55 BLOOD GAS, [id number] 04:53:00 Test Item Value Reference Range Comments PH ARTERIAL (BEAKER) (test sgir=613) 7.34 7.35-7.45 PCO2 ARTERIAL (BEAKER) (test saxa=606) 27 mmHg 35-45 PO2 ARTERIAL (BEAKER) (test nbau=230) 73 mmHg 80-90 O2 SATURATION ARTERIAL (BEAKER) (test bmsj=646) 93.9 % 96.0-97.0 HCO3 ARTERIAL (BEAKER) (test iprc=191) 14 mmol/L 21-29 BASE EXCESS ARTERIAL (BEAKER) (test rtls=482) -10.5 mmol/L -2.0-3.0 PATIENT TEMPERATURE (BEAKER) (test tkkj=3162) 37.5 C FIO2 (BEAKER) (test hwqk=6896) 30.0 % CBC W/PLT COUNT & AUTO [id number] 04:53:00 Test Item Value Reference Range Comments WHITE BLOOD CELL COUNT (BEAKER) (test nqlf=108) 27.8 K/ L 3.5-10.5 RED BLOOD CELL COUNT (BEAKER) (test oodo=527) 3.10 M/ L 3.93-5.22 HEMOGLOBIN (BEAKER) (test fpyc=209) 8.0 GM/DL 11.2-15.7 HEMATOCRIT (BEAKER) (test wgkr=237) 24.2 % 34.1-44.9 MEAN CORPUSCULAR VOLUME (BEAKER) (test foit=893) 78.1 fL 79.4-94.8 MEAN CORPUSCULAR HEMOGLOBIN (BEAKER) (test 25.8 pg 25.6-32.2 zwoh=389) MEAN CORPUSCULAR HEMOGLOBIN CONC (BEAKER) (test 33.1 GM/DL 32.2-35.5 oaty=251) RED CELL DISTRIBUTION WIDTH (BEAKER) (test 16.7 % 11.7-14.4 ceaa=585) PLATELET COUNT (BEAKER) (test bnrr=339) 189 K/CU MM 150-450 MEAN PLATELET VOLUME (BEAKER) (test ludi=393) 11.0 fL 9.4-12.3 NUCLEATED RED BLOOD CELLS (BEAKER) (test 0 /100 WBC 0-0 tmln=693) NEUTROPHILS RELATIVE PERCENT (BEAKER) (test 86 % qajs=430) LYMPHOCYTES RELATIVE PERCENT (BEAKER) (test 5 % srrv=722) MONOCYTES RELATIVE PERCENT (BEAKER) (test 6 % cglr=180) EOSINOPHILS RELATIVE PERCENT (BEAKER) (test 0 % uztj=339) BASOPHILS RELATIVE PERCENT (BEAKER) (test 0 % atuq=852) NEUTROPHILS ABSOLUTE COUNT (BEAKER) (test 23.73 K/ L 1.56-6.13 iohp=708) LYMPHOCYTES ABSOLUTE COUNT (BEAKER) (test 1.32 K/ L 1.18-3.74 gjwg=541) MONOCYTES ABSOLUTE COUNT (BEAKER) (test 1.68 K/ L 0.24-0.36 nobt=198) EOSINOPHILS ABSOLUTE COUNT (BEAKER) (test 0.00 K/ L 0.04-0.36 foaa=324) BASOPHILS ABSOLUTE COUNT (BEAKER) (test 0.04 K/ L 0.01-0.08 vbmr=483) IMMATURE GRANULOCYTES-RELATIVE PERCENT (BEAKER) 4 % 0-1 (test vaih=4331) CALCIUM, [id number] 04:51:00 Test Item Value Reference Range Comments CALCIUM IONIZED (BEAKER) (test njga=000) 1.12 mmol/L 1.12-1.27 PH, BLOOD (BEAKER) (test wznq=1606) 7.35 PROTHROMBIN TIME/[id number] 04:43:00 Test Item Value Reference Range Comments PROTIME (BEAKER) (test qkbi=582) 30.3 seconds 11.9-14.2 INR (BEAKER) (test csrs=440) 3.1 <=5.9 Effective 04/25/2019: PT Reference Range ChangeNew: 11.9-14.2 Previous: 11.7- 14.7RECOMMENDED COUMADIN/WARFARIN INR THERAPY RANGESSTANDARD DOSE: 2.0-3.0 Includes: PROPHYLAXIS for venous thrombosis, systemic embolization; TREATMENT for venous thrombosis and/or pulmonary embolus.HIGH RISK: Target INR is2.5-3.5 for patients wiht mechanical heart valves.[id number] 04:43:00 Test Item Value Reference Range Comments FIBRINOGEN LEVEL (BEAKER) (test wbzr=985) 265 mg/dl 225-434 [id number] 04:43:00 Test Item Value Reference Range Comments PROTIME (BEAKER) (test ooxl=340) 30.3 seconds 11.9-14.2 INR (BEAKER) (test jmcf=272) 3.1 <=5.9 PARTIAL THROMBOPLASTIN TIME (BEAKER) (test 33.7 seconds 22.5-36.0 wzyw=088) Effective 04/25/2019: PT Reference Range ChangeNew: 11.9-14.2 Previous: 11.7- 14.7RECOMMENDED COUMADIN/WARFARIN INR THERAPY RANGESSTANDARD DOSE: 2.0-3.0 Includes: PROPHYLAXIS for venous thrombosis, systemic embolization; TREATMENT for venous thrombosis and/or pulmonary embolus.HIGH RISK: Target INR is2.5-3.5 for patients wiht mechanical heart valves.ACUTE HEPATITIS [id number] 06:15: 00 Test Item Value Reference Range [...] with a HCV Nucleic Acid Amplification test (391635).Performed At: [facility] [address] [id number] Kyle L MD Ph:[phone] HIV 1 2 ANTIBODY [id number] 06:15:00 Test Item Value Reference Range Comments AB HIV 1 2 (test code=FTA69SQ) NON REACTIVE SCREEN NONREACTIVE AG HIV1 P24 (test code=YKZ9F15) NON REACTIVE P24 NONREACTIVE - CT ABD PELVIS [id number] 12:57:00 Name: GINA MARIE [facility] : 1965 Age/S: 53 / F [address] Unit #: [id number] Loc: [place] [address] Phys: Bryan Orta MD Acct: [id number] Dis Date: Status : ADM IN PHONE #: [phone] Exam Date: 03/09/2019 1200 FAX #: Reason: abd pain EXAMS: CPT: [id number] CT ABD PELVIS W/CONT 35676 LOCATION: T18 EXAM: CT ABDOMEN AND PELVIS [...] .. CTDI: DLP: Trnscb Date/Time: 03/09/2019 (1257) [email or web address] Orig Print D/T: S: 10/2019 (1300) CTDI: DLP: PAGE 1 Signed ReportBASIC METABOLIC [id number] 07:37:00 Test Item Value Reference Range Comments [...] CALCIUM (test code=CA) 8.7 MG/DL 8.5-10.1 T4 [id number] 07:37:00 Test Item Value Reference Range Comments T4 FREE (test code=T4F) 0.70 NG/DL 0.89-1.76 THYROID STIMULATING [id number] 07:37:00 Test Item Value Reference Range Comments THYROID STIMULATING HORMONE (test code=TSH) 1.540 mcIU/ML 0.340-4.820 ACUTE HEPATITIS [id number] 07:33:00 Test Item Value Reference Range Comments AB HEPATITIS A IGM (test code=HAVMAB) AG HEPATITIS B SURFACE (test code=HBSAG) SCREEN NEGATIVE AB HEPATITIS B CORE IGM (test code=HBCMAB) AB HEPATITIS C (test code=HCVAB) RATIO <0.8 HIV 1 2 ANTIBODY [id number] 07:33:00 Test Item Value Reference Range Comments AB HIV 1 2 (test code=IBJ64UU) NON REACTIVE SCREEN NONREACTIVE AG HIV1 P24 (test code=VJV2T51) NON REACTIVE P24 NONREACTIVE GLYCOSYLATED HEMOGLOBIN [id number] 07:26:00 Test Item Value Reference Range Comments GLYCOSYLATED HEMOGLOBIN (HA1C) (test 5.8 % A1C 4.2-6.3 code=GLYHGB) ESTIMATED AVERAGE GLUCOSE (test code=EAG) 120 MG/DLest CBC W/AUTO [id number] 07:21:00 Test Item Value Reference Range Comments [...] NO DIFF/SCN CRITERIA - CT HEAD/BRAIN W/O [id number] 19:39:00 Name: GINA MARIE [place] : 1965 Age/S: 53 / F [id number] Unit #: [id number] Loc: [place] [address] Phys: Maria Morel MD Acct: [id number] Dis Date: Status : ADM IN PHONE #: [phone] Exam Date: 03/08/2019 0760 FAX #: Reason: near syncope EXAMS: CPT: [id number] CT HEAD/BRAIN W/O CONT 80835 CT head History: near syncope Comparison: None [...] Lou Sharp MD; Maria Morel MD Technologist:Minal Lopez RT(R)(CT) CTDI: DLP: Trnscb Date/Time: 03/08/2019 (1938) [email or web address] Orig Print D/T: S: 03/08/2019 (1941) CTDI: DLP: PAGE 1 Signed ReportDRUGS OF ABUSE SCREEN [id number] 19:12:00 Test Item Value Reference Range Comments [...] code=METHAURN) NEGATIVE SCcutoff <300 NG/ML COMPREHENSIVE METABOLIC [id number] 17:26:00 Test Item Value Reference Range Comments [...] PHOSPHATASE TOTAL (test 103 Unit/L 45-117 code=ALKP) [id number] 17:26:00 Test Item Value Reference Range Comments MAGNESIUM (test code=MAG) 1.9 MG/DL 1.8-2.4 [id number] 17:26:00 Test Item Value Reference Range Comments ALCOHOL (test code=ALC) < 3 MG/DL 0-10 COMPREHENSIVE METABOLIC [id number] 17:21:00 Test Item Value Reference Range Comments [...] ALKALINE PHOSPHATASE TOTAL (test code=ALKP) Unit/L 45-117 [id number] 17:21:00 Test Item Value Reference Range Comments MAGNESIUM (test code=MAG) MG/DL 1.8-2.4 [id number] 17:21:00 Test Item Value Reference Range Comments ALCOHOL (test code=ALC) MG/DL 0-10 CBC W/AUTO [id number] 17:08:00 Test Item Value Reference Range Comments [...] NO DIFF/SCN CRITERIA - XR CHEST 1 [id number] 16:33:00 Name: GINA MARIE [facility] : 1965 Age/S: 53 / F [id number] Unit #: [id number] Loc: [place] [address] Phys: Maria Morel MD Acct: [id number] Dis Date: Status: PRE ER PHONE #: [phone] Exam Date: 03/08/2019 1627 FAX #: Reason: near syncope EXAMS: CPT: [id number] XR CHEST 1 V 91141 Fluoro Time: DAP (Gy m2): Air Kerma [...] MD PAGE 1 Signed Report Name: GINA MARIE : 1965 Age/S: 53 / F [address] Unit #: [id number] Loc: [place] [address] Phys: Maira Morel MD Acct: [id number] Dis Date: Status: PRE ER PHONE #: [phone] Exam Date: 03/08/2019 1625 FAX #: Reason: near syncope EXAMS: CPT: [id number] XR CHEST 1 V 51641 Fluoro Time: DAP (Gy m2 ): Air Kerma (mGy): <Continued>Technologist: Nanette Gordon RT(R)(CT) Trnscb Date/Time: 03/08/2019 (8323 ) Mac.[email or web address] Orig Print D/T: S: 03/08/2019 (4407) PAGE 2 Signed Report
[2019-10-20] MEDS ORDERED: NA CHLORIDE 0.9% 1,000 ML ONE (23:23)
[2019-10-20] MEDS ORDERED: NA CHLORIDE 0.9% 500 ML ONE (23:23)
[2019-10-21 00:10] LABS: Basophils % 1.5 % (0-1.3); Hematocrit 28.2 % (36.0-45.0); Lymphocytes % 21.8 % (15.3-44.8); MPV 8.7 fL (7.6-11.3); Protime INR 1.14; RBC Red Blood Cell Count 3.46 M/uL (3.86-4.86)
[2019-10-21 00:30] LABS: ALT/SGPT 99 U/L (12-78); AST/SGOT 30 U/L (15-37); Albumin 3.4 g/dL (3.4-5.0); Alkaline Phosphatase 118 U/L (45-117); BUN Blood Urea Nitrogen 8 mg/dL (7-18); Bicarbonate 21 mmol/L (21-32); Bilirubin Direct 0.3 mg/dL (0-0.2); Bilirubin Total 0.6 mg/dL (0.2-1.0); Glucose Level 85 mg/dL (74-106); Lipase 83 U/L (73-393); Magnesium 1.6 mg/dL (1.8-2.4); NT PRO-BNP 2089 pg/mL (<125); Potassium 3.2 mmol/L (3.5-5.1); Protein, Total 6.9 g/dL (6.4-8.2); Sodium Level 136 mmol/L (136-145); Troponin (Emerg Dept Use Only) < 0.02 ng/mL (0.0-0.045)
[2019-10-21] MEDS ORDERED: POTASSIUM 25 MEQ EFFERV TAB ONE (01:05)
[2019-10-21] MEDS ORDERED: MAGNESIUM SULFATE 1 gm IVPB 1 GM/100 ML BAG IV ONE (01:05)
--- NOTE | 2019-10-21 01:34 | ER ---
Nurse's Notes [facility] Name: Pratibha Jennings Age: 54 yrs Sex: Female : 1965 Arrival Date: 10/20/2019 Time: 21:53 Bed 16 Private MD: Diagnosis: Altered mental status, unspecified;Other chronic pain;Anemia, unspecified;Hypokalemia;Weakness Presentation: 10/20 22:07 Presenting complaint: states: "we were here a few weeks ago for problems with jd3 her liver as well as other stuff. they ended up having to out her on the ventilator and discharged on Tuesday. Since then she hasn't really eating and her mental focus and she seems like she isn't responding appropriately.". Transition of care: patient was not received from another setting of care. Onset of symptoms was October 20, 2019. Risk Assessment: Do you want to hurt yourself or someone else? Patient reports no desire to harm self or others. Initial Sepsis Screen: Does the patient meet any 2 criteria? No. Patient's initial sepsis screen is negative. Does the patient have a suspected source of infection? No. Patient's initial sepsis screen is negative. Care prior to arrival: None. 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 N/A - Post-menopause jd3 Historical: - Allergies: 22:12 Iodine; topical; jd3 22:12 Latex, Natural Rubber; jd3 - Home Meds: 22:12 Ambien 5 mg Oral tab 1 tab once daily [Active]; amlodipine oral [Active]; atorvastatin jd3 Oral [Active]; Fluoxetine Oral [Active]; gabapentin 600 mg Oral tab 1 tab daily [Active]; Hydroxyzine Oral [Active]; lidocaine patch [Active]; morphine 15 mg Oral tab 1 tab every 4 hours [Active]; Neurontin 600 mg Oral tab 1 tab daily [Active]; oxycodone-acetaminophen 10-650 mg Oral tab 1 tab every 6 hours [Active]; Propranolol Oral [Active]; Protonix Oral [Active]; Zofran Oral [Active]; tizanidine 4 mg Oral cap 1 cap [Active]; - PMHx: 22:12 Back pain; Chronic pain; ADD/ADHD; Degenerative disc disease; Hypertension; jd3 Hyperlipidemia; - Immunization history:: Adult Immunizations up to date. - Social history:: Smoking status: Patient uses tobacco products, smokes one-half pack cigarettes per day. - Ebola Screening: : Patient negative for fever greater than or equal to 101.5 degrees Fahrenheit, and additional compatible Ebola Virus Disease symptoms. - Family history:: not pertinent. Screenin:30 Abuse screen: Denies threats or abuse. Denies injuries from another. Nutritional wh screening: No deficits noted. Tuberculosis screening: No symptoms or risk factors identified. Fall Risk None identified. Assessment: 22:30 General: Appears in no apparent distress. Behavior is calm, cooperative, appropriate wh for age. Pain: Denies pain. Neuro: Level of Consciousness is awake, alert, obeys commands, Oriented to person, place, Reports COnfusion. Cardiovascular: Heart tones S1 S2. Respiratory: Airway is patent Respiratory effort is even, unlabored, Respiratory pattern is regular, symmetrical. GI: Abdomen is flat, non-distended. : No signs and/or symptoms were reported regarding the genitourinary system. EENT: No signs and/or symptoms were reported regarding the EENT system. Derm: Skin is intact, is healthy with good turgor, Skin is pink, warm \\T\\ dry. normal. Musculoskeletal: Surgery in Left Clavicle and Left Elbow. 23:45 Reassessment: Patient appears in no apparent distress at this time. No changes from previously documented assessment. Patient and/or family updated on plan of care and expected duration. Pain level reassessed. Patient is alert, oriented x 3, equal unlabored respirations, skin warm/dry/pink. 10/21 01:34 Reassessment: Patient appears in no apparent distress at this time. Patient and/or tr5 family updated on plan of care and expected duration. Pain level reassessed. Patient is alert, oriented x 3, equal unlabored respirations, skin warm/dry/pink. 02:30 Reassessment: Patient appears in no apparent distress at this time. Patient and/or cc3 family updated on plan of care and expected duration. Pain level reassessed. Patient is alert, oriented x 3, equal unlabored respirations, skin warm/dry/pink. Patient denies pain at this time. 03:25 Reassessment: Patient appears in no apparent distress at this time. Patient and/or cc3 family updated on plan of care and expected duration. Pain level reassessed. Patient is alert, oriented x 3, equal unlabored respirations, skin warm/dry/pink. Patient for admission, room available in 402, called for report but was told to wait for ANGELA Clifford's call. Patient denies pain at this time. 03:43 Reassessment: ANGELA Clifford called and report handed over to her for continuity of care cc3 and management. 04:20 Reassessment: Patient appears in no apparent distress at this time. Patient and/or cc3 family updated on plan of care and expected duration. Pain level reassessed. Patient is alert, oriented x 3, equal unlabored respirations, skin warm/dry/pink. Patient left ER for admission vitally stable by stretcher escorted by audio visual technician Maria and the patient's . No valuables left in the patient's room. Patient denies pain at this time. Vital Signs: 10/20 22:12 BP 136 / 82; Pulse 92; Resp 17 S; Temp 98.4(O); Pulse Ox 99% on R/A; Weight 49.9 kg jd3 (R); Height 5 ft. 4 in. (162.56 cm) (R); Pain 0/10; 10/21 00:18 BP 132 / 71; Pulse 69; Resp 16; Pulse Ox 100% on R/A; tr5 01:34 BP 122 / 84; Pulse 72; Resp 15; Pulse Ox 100% on R/A; tr5 02:43 BP 144 / 83; Pulse 76; Resp 15 S; Pulse Ox 100% on R/A; cc3 03:45 BP 147 / 81; Pulse 75; Resp 16 S; Pulse Ox 100% on R/A; cc3 04:00 BP 138 / 87; Pulse 73; Resp 15 S; Pulse Ox 99% on R/A; cc3 10/20 22:12 Body Mass Index 18.88 (49.90 kg, 162.56 cm) jd3 ED Course: 10/20 21:53 Patient arrived in ED. cf2 22:09 Triage completed. jd3 22:14 Arm band placed on. jd3 22:16 Prakash Farmer is Primary Nurse. 22:16 Baldemar Browne MD is Attending Physician. samira 22:30 Patient has correct armband on for positive identification. Placed in gown. Bed in low wh position. Call light in reach. Side rails up X 1. monitoring coordinator on. Pulse ox on. NIBP on. 22:48 CT Head Brain wo Cont In Process Unspecified. EDMS 23:31 Initial lab(s) drawn, by me, sent to lab. Inserted saline lock: 22 gauge in right lt1 forearm, using aseptic technique. 23:34 XRAY Chest (1 view) In Process Unspecified. EDMS 10/21 00:00 Report given to Terrie Sebastian RN. 01:32 Brianna Sifuentes MD is Hospitalizing Provider. samira 02:15 Report received from ANGELA Guillory. cc3 02:39 Von Chaves MD is Hospitalizing Provider. samira 04:20 No provider procedures requiring assistance completed. Patient admitted, IV remains in cc3 place. Administered Medications: 10/20 23:27 Drug: NS 0.9% 500 ml Route: IV; Rate: bolus; Site: left forearm; 23:28 Drug: NS 0.9% 1000 ml Route: IV; Rate: 125 ml/hr; Site: right forearm; 10/21 03:00 Follow up: Response: No adverse reaction; IV Status: Infusion continued upon admission cc3 01:33 Drug: Potassium Effervescent Tablet 25 mEq Route: PO; tr5 02:30 Follow up: Response: No adverse reaction cc3 01:34 Drug: Magnesium Sulfate 1 grams Route: IVPB; Infused Over: 1 hrs; Site: left wrist; tr5 02:30 Follow up: Response: No adverse reaction; IV Status: Completed infusion cc3 Outcome: 01:34 Decision to Hospitalize by Provider. samira 02:41 Decision to Hospitalize by Provider. samira 04:20 Admitted to Tele accompanied by tech, family with patient, via stretcher, room 402, cc3 with chart, Report called to ANGELA Clifford 04:20 Condition: stable 04:20 Instructed on the need for admit, Demonstrated understanding of instructions. 04:32 Patient left the ED. cc3 Signatures: Dispatcher [employer] EDMS Baldemar Browne MD MD cha Habalo, Winsy Gilmar Boudreaux RN RN jScarlet Graves cc3 Lu Swain [facility] Terrie Sebastian RN RN tr5 [place], [place] cf2 Corrections: (The following items were deleted from the chart) 00:37 10/20 22:30 Pulse ox on. NIBP on. wh
--- NOTE | 2019-10-21 01:35 | EDPHYS ---
Physician Documentation [facility] Name: Pratibha Jennings Age: 54 yrs Sex: Female : 1965 Arrival Date: 10/20/2019 Time: 21:53 Bed 16 Private MD: ED Physician Baldemar Browne HPI: 10/20 22:27 This 54 yrs old Female presents to ER via Ambulatory with complaints of samira Altered Mental Status. 22:27 The patient presents with confusion, decreased mental status, trouble concentrating. samira Onset: The symptoms/episode began/occurred 2 day(s) ago. Possible causes: unknown. Associated signs and symptoms: Pertinent positives: confusion, dizziness. Patient's baseline: Neuro:. The patient has not experienced similar symptoms in the past. 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 LMP N/A - Post-menopause jd3 Historical: - Allergies: 22:12 Iodine; topical; jd3 22:12 Latex, Natural Rubber; jd3 - Home Meds: 22:12 Ambien 5 mg Oral tab 1 tab once daily [Active]; amlodipine oral [Active]; atorvastatin jd3 Oral [Active]; Fluoxetine Oral [Active]; gabapentin 600 mg Oral tab 1 tab daily [Active]; Hydroxyzine Oral [Active]; lidocaine patch [Active]; morphine 15 mg Oral tab 1 tab every 4 hours [Active]; Neurontin 600 mg Oral tab 1 tab daily [Active]; oxycodone-acetaminophen 10-650 mg Oral tab 1 tab every 6 hours [Active]; Propranolol Oral [Active]; Protonix Oral [Active]; Zofran Oral [Active]; tizanidine 4 mg Oral cap 1 cap [Active]; - PMHx: 22:12 Back pain; Chronic pain; ADD/ADHD; Degenerative disc disease; Hypertension; jd3 Hyperlipidemia; - Immunization history:: Adult Immunizations up to date. - Social history:: Smoking status: Patient uses tobacco products, smokes one-half pack cigarettes per day. - Ebola Screening: : Patient negative for fever greater than or equal to 101.5 degrees Fahrenheit, and additional compatible Ebola Virus Disease symptoms. - Family history:: not pertinent. ROS: 22:27 Constitutional: Negative for fever, chills, and weight loss, Eyes: Negative for injury, samira pain, redness, and discharge, ENT: Negative for injury, pain, and discharge, Neck: Negative for injury, pain, and swelling, Cardiovascular: Negative for chest pain, palpitations, and edema, Respiratory: Negative for shortness of breath, cough, wheezing, and pleuritic chest pain, Abdomen/GI: Negative for abdominal pain, nausea, vomiting, diarrhea, and constipation, Back: Negative for injury and pain, : Negative for injury, bleeding, discharge, and swelling, MS/Extremity: Negative for injury and deformity, Skin: Negative for injury, rash, and discoloration, Allergy/Immunology: Negative for hives, rash, and allergies, Endocrine: Negative for neck swelling, polydipsia, polyuria, polyphagia, and marked weight changes, Hematologic/Lymphatic: Negative for swollen nodes, abnormal bleeding, and unusual bruising. 22:27 Neuro: Positive for altered mental status, weakness. Exam: 22:27 Constitutional: This is a well developed, well nourished patient who is awake, alert, samira and in no acute distress. Head/Face: Normocephalic, atraumatic. Eyes: Pupils equal round and reactive to light, extra-ocular motions intact. Lids and lashes normal. Conjunctiva and sclera are non-icteric and not injected. Cornea within normal limits. Periorbital areas with no swelling, redness, or edema. ENT: Nares patent. No nasal discharge, no septal abnormalities noted. Tympanic membranes are normal and external auditory canals are clear. Oropharynx with no redness, swelling, or masses, exudates, or evidence of obstruction, uvula midline. Mucous membranes moist. Neck: Trachea midline, no thyromegaly or masses palpated, and no cervical lymphadenopathy. Supple, full range of motion without nuchal rigidity, or vertebral point tenderness. No Meningismus. Chest/axilla: Normal chest wall appearance and motion. Nontender with no deformity. No lesions are appreciated. Cardiovascular: Regular rate and rhythm with a normal S1 and S2. No gallops, murmurs, or rubs. Normal PMI, no JVD. No pulse deficits. Respiratory: Lungs have equal breath sounds bilaterally, clear to auscultation and percussion. No rales, rhonchi or wheezes noted. No increased work of breathing, no retractions or nasal flaring. Abdomen/GI: Soft, non-tender, with normal bowel sounds. No distension or tympany. No guarding or rebound. No evidence of tenderness throughout. Back: No spinal tenderness. No costovertebral tenderness. Full range of motion. Skin: Warm, dry with normal turgor. Normal color with no rashes, no lesions, and no evidence of cellulitis. MS/ Extremity: Pulses equal, no cyanosis. Neurovascular intact. Full, normal range of motion. Neuro: Awake and alert, GCS 15, oriented to person, place, time, and situation. Cranial nerves II-XII grossly intact. Motor strength 5/5 in all extremities. Sensory grossly intact. Cerebellar exam normal. Normal gait. Psych: Awake, alert, with orientation to person, place and time. Behavior, mood, and affect are within normal limits. 22:27 Neuro: Orientation: to person, place, time, situation, Mentation: slow to respond, Memory: appropriate for stated age, no acute changes, Cranial nerves: grossly normal, is grossly normal based on the patient's age, no acute changes, Cerebellar function: is grossly normal, is grossly normal based on the patient's age, no acute changes, Motor: moves all fours, Sensation: no obvious gross deficits, Gait: not tested. Deep tendon reflexes are 2+ (normal) in the bilateral brachioradialis, bicep, tricep and patellar and Achilles tendons, Babinski testing is normal, seizure activity, is not displayed by the patient. Vital Signs: 22:12 BP 136 / 82; Pulse 92; Resp 17 S; Temp 98.4(O); Pulse Ox 99% on R/A; Weight 49.9 kg jd3 (R); Height 5 ft. 4 in. (162.56 cm) (R); Pain 0/10; 10/21 00:18 BP 132 / 71; Pulse 69; Resp 16; Pulse Ox 100% on R/A; tr5 01:34 BP 122 / 84; Pulse 72; Resp 15; Pulse Ox 100% on R/A; tr5 02:43 BP 144 / 83; Pulse 76; Resp 15 S; Pulse Ox 100% on R/A; cc3 03:45 BP 147 / 81; Pulse 75; Resp 16 S; Pulse Ox 100% on R/A; cc3 04:00 BP 138 / 87; Pulse 73; Resp 15 S; Pulse Ox 99% on R/A; cc3 10/20 22:12 Body Mass Index 18.88 (49.90 kg, 162.56 cm) jd3 MDM: 10/20 22:17 Patient medically screened. [facility] 22:30 Data reviewed: vital signs, nurses notes, lab test result(s), EKG, radiologic studies, [facility] CT scan, plain films. 10/20 22:27 Order name: Basic Metabolic Panel; Complete Time: 00:38 [facility] 10/20 22:27 Order name: CBC with Diff; Complete Time: 00:16 [facility] 10/20 22:27 Order name: LFT's; Complete Time: 00:38 [facility] 10/20 22:27 Order name: Magnesium; Complete Time: 00:38 [facility] 10/20 22:27 Order name: NT PRO-BNP; Complete Time: 00:38 [facility] 10/20 22:27 Order name: PT-INR; Complete Time: 00:38 [facility] 10/20 22:27 Order name: Troponin (emerg Dept Use Only); Complete Time: 00:38 [facility] 10/20 22:27 Order name: Lipase; Complete Time: 00:38 [facility] 10/20 22:27 Order name: AMMONIA; Complete Time: 01:29 [facility] 10/20 22:31 Order name: ETOH Level; Complete Time: 00:38 [facility] 10/20 22:31 Order name: Ptt, Activated; Complete Time: 00:38 [facility] 10/20 22:31 Order name: Salicylate; Complete Time: 00:38 [facility] 10/20 22:31 Order name: Urine Drug Screen [facility] 10/20 22:27 Order name: XRAY Chest (1 view) [facility] 10/20 22:27 Order name: EKG; Complete Time: 22:28 [facility] 10/20 22:27 Order name: Cardiac monitoring; Complete Time: 23:18 [facility] 10/20 22:27 Order name: EKG - Nurse/Tech; Complete Time: 23:18 [facility] 10/20 22:27 Order name: IV Saline Lock; Complete Time: 23:18 [facility] 10/20 22:27 Order name: Labs collected and sent; Complete Time: 23:18 [facility] 10/20 22:27 Order name: O2 Per Protocol; Complete Time: 23:18 [facility] 10/20 22:27 Order name: CT Head Brain wo Cont [facility] 10/20 23:54 Order name: Acetaminophen Level; Complete Time: 00:38 [facility] 11/24 02:23 Order name: Urine Dipstick--Ancillary (enter results) [place] 10/21 02:49 Order name: CONS Physician Consult [facility] 10/21 02:49 Order name: CONS Physician Consult [facility] 10/20 22:27 Order name: O2 Sat Monitoring; Complete Time: 23:18 [facility] 10/20 22:31 Order name: Urine Dipstick-Ancillary (obtain specimen); Complete Time: 02:39 [facility] Administered Medications: 23:27 Drug: NS 0.9% 500 ml Route: IV; Rate: bolus; Site: left forearm; 23:28 Drug: NS 0.9% 1000 ml Route: IV; Rate: 125 ml/hr; Site: right forearm; 10/21 03:00 Follow up: Response: No adverse reaction; IV Status: Infusion continued upon admission cc3 01:33 Drug: Potassium Effervescent Tablet 25 mEq Route: PO; tr5 02:30 Follow up: Response: No adverse reaction cc3 01:34 Drug: Magnesium Sulfate 1 grams Route: IVPB; Infused Over: 1 hrs; Site: left wrist; tr5 02:30 Follow up: Response: No adverse reaction; IV Status: Completed infusion cc3 Disposition: 10/21/19 02:41 Hospitalization ordered by Von Chaves for Inpatient Admission. Preliminary diagnosis are Altered mental status, unspecified, Other chronic pain, Anemia, unspecified, Hypokalemia, Weakness. - Bed requested for Telemetry/MedSurg (Inpatient). - Status is Inpatient Admission. cc3 - Condition is Stable. - Problem is new. - Symptoms have improved. UTI on Admission? No Signatures: Dispatcher [employer] [facility] Teresa Ruiz RN RN mw Anderson, Corey, MD MD cha Habalo, Winsy Gilmar Boudreaux RN RN Scarlet Chi cc3 Kahlil Sebastian RN RN tr5 Corrections: (The following items were deleted from the chart) 10/20 23:54 22:32 ACETAMINOPHEN+C.LAB.BRZ ordered. [facility] 10/21 02:39 01:34 Hospitalization Ordered by Brianna Sifuentes MD for Inpatient Admission. Preliminary [facility] diagnosis is Altered mental status, unspecified; Anemia, unspecified; Hypomagnesemia; Hypokalemia; Weakness. Bed requested for Telemetry/MedSurg (Inpatient). Status is Inpatient Admission. Condition is Fair. Problem is new. Symptoms have improved. UTI on Admission? No. samira 03:01 02:41 Hospitalization Ordered by A Andie SALINAS for Inpatient Admission. Preliminary mw diagnosis is Altered mental status, unspecified; Other chronic pain; Anemia, unspecified; Hypokalemia; Weakness. Bed requested for Telemetry/MedSurg (Inpatient). Status is Inpatient Admission. Condition is Stable. Problem is new. Symptoms have improved. UTI on Admission? No. samira 04:32 03:01 10/21/2019 02:41 Hospitalization Ordered by A Andie SALINAS for Inpatient Admission. cc3 Preliminary diagnosis is Altered mental status, unspecified; Other chronic pain; Anemia, unspecified; Hypokalemia; Weakness. Bed requested for Telemetry/MedSurg (Inpatient). Status is Inpatient Admission. Condition is Stable. Problem is new. Symptoms have improved. UTI on Admission? No. mw
[2019-10-21 02:47] LABS: Urine Blood NEGATIVE (NEG); Urine Glucose NEGATIVE (NEG); Urine Protein NEGATIVE (NEG); Urine Specific Gravity 1.015 (1.005-1.030)
[2019-10-21] MEDS ORDERED: NA CHLORIDE 0.9% 1,000 ML IV SCH (04:29)
[2019-10-21] MEDS ORDERED: ONDANSETRON 4 MG/2 ML VIAL IV PRN (04:29)
[2019-10-21] MEDS ORDERED: ACETAMINOPHEN 500 MG TAB PO PRN (04:29)
[2019-10-21 04:41] VITALS: BMI 18.8
--- NOTE | 2019-10-21 08:20 | RAD REPORT ---
EXAM DESCRIPTION: RAD - Chest Single View - 10/20/2019 11:34 pm CLINICAL HISTORY: Cough, shortness of breath COMPARISON: October 05 ; January 2019 TECHNIQUE: AP portable chest image was obtained 2307 hours . FINDINGS: No focal mass or consolidation. Patient has a significant baseline interstitial pattern th at has increased in prominence on this examination. Heart and vasculature are normal. No measurable p leural effusion and no pneumothorax. No acute bone findings seen. Left clavicle fracture fixation man dware has been placed. No acute aortic findings suspected. IMPRESSION: Diffuse interstitial opacification superimposed on baseline fibrotic lung disease. Heart size is normal. Interstitial infiltrate or mild cardiogenic interstitial edema evident.
[2019-10-21] MEDS ORDERED: THIAMINE 200 MG/2 ML INJ IVP SCH (09:00)
[2019-10-21] MEDS ORDERED: FAMOTIDINE 20 MG/2 ML VIAL IV SCH (09:00)
[2019-10-21] MEDS ORDERED: MAGNESIUM OXIDE 400 MG TAB PO SCH (09:00)
[2019-10-21] MEDS ORDERED: POTASSIUM 25 MEQ EFFERV TAB PO SCH (09:00)
[2019-10-21] MEDS ORDERED: FOLIC ACID 5 MG/ML VIAL IVP SCH (09:00)
[2019-10-21 10:07] VITALS: O2SAT 98
--- NOTE | 2019-10-21 10:46 | RAD REPORT ---
EXAM DESCRIPTION: RAD - Chest Pa And Lat (2 Views) - 10/21/2019 10:07 am CLINICAL HISTORY: AMS, shortness of breath Set COMPARISON: October 20 and October 05 comparison studies ; January 2019 TECHNIQUE: PA and lateral views of the chest were obtained. FINDINGS: The lungs are normal volume. Patient has an underlying interstitial lung pattern that is p rominent for age. Current examination shows slight areas of increased interstitial opacification in t he lateral right base, medial left base and lateral mid right lung field. No mass or consolidation. Heart size is normal and central vasculature is within normal limits. No pleural effusion or pneu mothorax seen. No acute bony finding noted. No aortic abnormality. IMPRESSION: Slight increase in the interstitial opacification medial left base, lateral right base a nd lateral right midlung field. Findings are suspicious for interstitial edema or infiltrate superimposed on a prominent for age marble carver adama interstitial lung pattern.
[2019-10-21] MEDS ORDERED: levoFLOXacin 500 MG TAB PO ONE (12:00)
[2019-10-21 13:27] VITALS: BP 158/84; TEMP 98.4
--- NOTE | 2019-10-21 21:52 | SS ---
Date of Discharge: 10/21/2019 Chief Complaint: Altered mental status. History Of Present Illness: This is a 54-year-old female patient, who takes multiple medications from Pain Management and psychiatrist, was brought into emergency room with altered mental status problem. After she was evaluated in the ER, she was admitted to the hospital under my service. Her altered mental status problem actually has improved and resolved during her stay in the emergency room and ER physician wanted to admit her to the hospital, so he contacted me and admitted the patient to the hospital. When I saw her this morning, she was awake, alert, oriented x3, not in any distress. She was back to her normal usual self again as she describes. There was no family member with her at bedside. Patient denies any headache. No cough, cold, congestion. No expectoration. No hemoptysis. No fever, chills, abdominal pain, nausea, vomiting, diarrhea. Allergies: TOPICAL IODINE. Medications: Current medication list is not available, but prior medication list reviewed and medication list reviewed from office record as well. 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 All other systems reviewed and negative. Past Medical History: Significant for hypertension, mixed hyperlipidemia, gastroesophageal reflux disease, nausea, hyponatremia, chronic pain. Past Surgical History: Back surgery x5, spinal cord stimulator placement, bilateral knee surgery, wisdom teeth removal, tonsillectomy, laparoscopic surgery for endometriosis, and excision of lipoma. Family History: Significant for hypertension, aneurysm of thoracic aorta, and diabetes mellitus. Social History: Positive for smoking. Use of alcohol negative. Physical Examination: Vital Signs: Temperature 97.5, pulse 68, respiratory rate 18, blood pressure 160/82, oxygen saturation 100% on room air. Height 5 feet 4 inches, weight 109 pounds. General: Awake, alert, oriented, not in distress. HEENT: Head atraumatic, normocephalic. Conjunctivae nonerythematous. Sclerae white. Mouth, no thrush or edema noted. Ears/Nose, no mass, lesion, discharge noted. Neck: Supple. No JVD, lymph nodes, bruit, thyromegaly noted. Lungs: Bilateral good equal air entry. Clear to auscultation. No rhonchi. No rales. Heart: Normal heart sounds, no murmur or gallop. Abdomen: Soft, bowel sounds normal. No guarding, rigidity, tenderness, mass, hepatosplenomegaly, distention, or bruit noted. Extremities: No leg edema. No calf tenderness. Skin: No rash, ulcer, cellulitis. Lymphatics: No lymph node enlargement in neck, supraclavicular, infraclavicular region. Neuro: No focal neurological deficit. Chest: Unremarkable. External Genitalia: Deferred. Rectal: Deferred. Laboratory Data: CAT scan of the head, no acute intracranial changes. White count 9.2, hemoglobin 9.7, platelets 516. Sodium 136, potassium 3.2, chloride 108, bicarb 21, BUN 8, creatinine 0.71, glucose 85, magnesium 1.6. SGOT 30, SGPT 99, alkaline phosphatase 118, ammonia less than 10. ProBNP 2089. Lipase 83. Urinalysis negative. Urine toxicology screen, salicylate less than 1.7, Tylenol less than 2, alcohol less than 3. Chest x-ray shows slightly increased interstitial opacification medial left lung base, lateral right lung base, and right mid lung field. This could be either interstitial edema or infiltrate superimposed on prominent for age chronic interstitial lung changes. Hospital Course: After I saw patient this morning, I did request a PA and lateral chest x-ray and the result reviewed as mentioned above. Clinically, she does not have any other symptoms at this point. She came in with altered mental status and that problem has resolved back to its normal self. I have discussed few things with the patient today and one important thing I explained to her is that she is not compliant with her office appointments, she has not seen me in last several months and has not kept her appointment, and I informed her that I will not be able to help her considering her noncompliance with the office appointments and my recommendations. I explained to her that it is very important that she follows up with her psychiatrist and pain management physician as soon as possible preferably tomorrow to discuss about medications that both of these physicians are giving to her and that could cause or contribute to her altered mental status problem as I understand in the past that was a definite concern we had. I am not sure if she is using more than prescribed amount, but to my knowledge in the past there was a problem that she had use more than prescribed amount of medication possibly, but we do not know for sure, but in any case, she should follow up with her pain specialist, who prescribes her certain medication that can affect her mental status and I explained it to her. We will treat her empirically with antibiotic Levaquin for 1 week 500 mg p.o. daily, first dose will be given today in the hospital and we will send a prescription to her pharmacy for 1 week of Levaquin. Discharge Diagnoses: 1. Altered mental status, resolved. 2. Rule out pneumonia. 3. Hypertension. 4. Mixed hyperlipidemia. 5. Gastroesophageal reflux disease. 6. Chronic back pain. Discharge Medications And Instructions: 1. Continue all prior home medication. 2. Take Levaquin as prescribed for 1 week. 3. Follow up with your painter rough and psychiatrist this coming week to discuss about your recent hospital admission with confusion and get assistance from both of these physicians to help lower use of certain medications that might cause confusion and drowsiness type of problems. Follow up at my office in 1 month. 4. Return to emergency room if you have any acute change in condition. MCKENZIE/TANI Voice ID: [id number] Report ID: [id number] CRISTY
--- NOTE | 2019-10-22 09:39 | EKG ---
Test Date: 2019-10-20 Test Time: 23:01:57 Talent Advisor: EDIL MEASUREMENT RESULTS: Intervals: Rate: 69 FL: 124 QRSD: 76 QT: 450 QTc: 482 [place]: P: 65 FL: 124 QRS: 74 T: 82 INTERPRETIVE STATEMENTS: Normal sinus rhythm LVH with secondary repolarization changes Prolonged QT Abnormal ECG Compared to ECG 10/05/2019 18:48:15 Left ventricular hypertrophy now present Electronically Signed On 10-22-19 09:38:29 WAREHOUSE EXAMINER by Lei Camp
--- NOTE | 2019-10-22 13:55 | RAD REPORT ---
EXAM DESCRIPTION: CT - Head Brain Wo Cont - 10/20/2019 11:24 pm CLINICAL HISTORY: 54 years Female Dizziness;Mental status change COMPARISON: None TECHNIQUE: Images were obtained in axial, sagittal, and coronal planes. This exam was performed according to our departmental dose-optimization program which includes use of Automated Exposure Control, adjustment of the mA and/or kV according to patient size and/or use of i terative reconstruction technique. FINDINGS: Ventricular system appears normal. No abnormal areas of increased or decreased attenuation are seen involving the brain parenchyma. No e xtra-axial fluid collections noted. No evidence for skull fracture. Symmetric aeration mastoid air cells bilaterally. Unremarkable parana glen sinuses. IMPRESSION: No acute intracranial abnormality. No evidence for hemorrhage, mass lesion, or large acu te infarction. Electronically signed by: Terri Potts MD 10/20/2019 10:57 PM SALESPERSON FURNITURE Due to temporary technical issues with the PACS/Fluency reporting system, reports are being signed by the in house radiologist as a courtesy to ensure prompt reporting. The interpreting radiologist is f ully responsible for the content of the report.
== END 2019-10-21 13:19 | disposition home or self-care (01) ==
LOC: ER 21:51 → ERHOLD 10-21 02:44 → INTOOBSV 10-21 02:44 → 4TH 10-21 04:11
PROVIDERS: ADMIT Internal Medicine; ATTEND Internal Medicine
DX: R41.82 Altered mental status, unspecified (principal); I10 Essential (primary) hypertension; E78.2 Mixed hyperlipidemia; K21.9 Gastro-esophageal reflux disease without esophagitis; F17.210 Nicotine dependence, cigarettes, uncomplicated; M54.9 Dorsalgia, unspecified
CPT/HCPCS: 96365; 96361; 93005; 85025; 80048; 36415; 80320; 82140; 83735; 80329 ×2; 85610; 80076; 85730; 81003; 84484; 83690; 83880; 70450; 71045; 71046; 99285; J3411; J3475; J7040; J7030 ×3; G0378 ×2

== ENCOUNTER 2021-04-02 04:23 | Emergency (ER) | payer BC ==
--- OUTSIDE RECORDS SUMMARY | 2021-04-02 04:30 | XMS REPORT | Continuity of Care Document ---
:1965 Author Organization [facility] t Address [address] [place] [address] Care Team Providers Name Role Phone Mary Chaves MD Primary Care Physician Abran Ortega Attending Clinician EULOGIO Attending Clinician Unavailable PRANAV RODRIGUEZ Attending Clinician Unavailable PRANAV RODRIGUEZ Admitting Clinician Unavailable Payers Payer Name Policy Type Policy Effective Date Expiration Date [facility] ce Number BCBSBCBS CHOICE [id number] 2016 [place] PPO/FEDERAL 00:00:00 [place] EMPL [id number] 2016-Presen tPPO Problems Condition Condition Condition Status Onset Resolution Last Treating Co mments Source Name Details Category Date Date Treatment Clinician Date PAD PAD Disease Active 2018-11 [place] (periphera (periphera 2-10 [facility] l artery l artery 00:00: st disease) disease) 00 Stenosis Stenosis Disease Active 2018-11 [place] of carotid of carotid 2-10 Me th[facility] artery artery 00:00: st 00 Pulmonary Pulmonary Disease Active 2018-[address] [facility] [address] hypertensi hypertensi 1-10 Ebony kes - on on 00:00: Medical 00 [place] Acute Acute Disease Active 2018- [facility] blood loss blood loss 1-10 Eb[facility] kes - anemia anemia 00:00: Medical 00 Center Tobacco Tobacco Disease Active 2018-[address] [facility] abuse abuse 12-06 [facility] Aspiration Aspiration Disease Active 2018- [facility] pneumonia pneumonia 12-06 [facility] - 00:[facility] Medical 00 Center Other Other Disease Active 2019- [facility] shock shock 12-06 [facility] Medical 00 [place] Acute Acute Disease Active 2018- [facility] liver liver 12-06 [facility] - failure failure 00:00: Medical with with 00 Center hepatic hepatic coma coma Acute Acute Disease Active 2018- [facility] metabolic metabolic 12-06 [facility] - encephalop encephalop 00:00: Me dical athy athy 00 Center Acute Acute Disease Active 2018- [facility] hypoxemic hypoxemic 12-06 [facility] - respirator respirator 00:00: Me dical y failure y failure 00 Cent er CATHERINE (acute CATHERINE (acute Disease Active 2018-[address] kidney kidney 12-06 [facility] - injury) injury) 00:00: Medical 00 [place] High anion High anion Disease Active 2018- [facility] gap gap 12-06 [facility] - metabolic metabolic 00:00: [facility] willie acidosis acidosis 00 Center Alcohol Alcohol Disease Active 2018-[address] [facility] use use 12-06 [facility] - 00:00: Medical 00 [place] Gastroesop Gastroesop Disease Active 2018-0 H karolyn hageal hageal 2-23 [facility] reflux reflux 00:00: st disease disease 00 Cavitary Cavitary Disease Active 2018-0 [place] 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 00:00: st 00 Hemoptysis Hemoptysis Disease Active 2018-0 [place] 2-07 [facility] 00:00: st 00 History of History of Disease Active 2018-0 H [place] tobacco tobacco 2-07 [facility] use use 00:00: st 00 Chronic Chronic Disease Active 2018-0 [place] obstructiv obstructiv 2-07 Me th[facility] e e 00:00: st pulmonary pulmonary 00 disease disease Septic Septic Disease Active 2016-11 [place] shock shock 0-29 [facility] 00:00: st 00 Acute Acute Disease Active 2016-11 [place] respirator respirator 0-29 Me thodi y failure y failure 00:00: st 00 Hyponatrem Hyponatrem Disease Active 2017- H karolyn ia ia 0-29 [facility]i 00:00: st 00 Elevated Elevated Disease Active 2016-11 [place] troponin troponin 0-29 Method i 00:00: st 00 Carotid Problem Active 2020-12-30 Rao caity bruit 00:07:12 l (finding) Carotid Herm joão bruit (finding) Active Problem 12/30/2020 [facility] Degenerati Problem Active 2020-12-30 M emoria on of 00:07:12 l lumbar [place] interverte Degenerati bral disc on of (disorder) lumbar interverte bral disc (disorder) Active Problem 12/30/2020 [facility] Family Problem Active 2020-12-30 Memor ia history of 00:07:12 l aneurysm Family Reece n of artery history of (situation aneurysm ) of artery (situation ) Active Problem 12/30/2020 [facility] Hyperlipid Problem Active 2020-12-30 M emoria emia 00:07:12 l (disorder) Reece n Hyperlipid emia (disorder) Active Problem 12/30/2020 [facility] Hypertensi Problem Active 2020-12-30 M emoria ve 00:07:12 l disorder, [place] systemic Hypertensi arterial ve (disorder) disorder, systemic arterial (disorder) Active Problem 12/30/2020 [facility] Left Problem Active 2020-12-30 Memor ia carotid 00:07:12 l artery Left [place] stenosis carotid (disorder) artery stenosis (disorder) Active Problem 12/30/2020 [facility] Memory Problem Active 2020-12-30 Memor ia impairment 00:07:12 l (finding) Memory Mary nn impairment (finding) Active Problem 12/30/2020 [facility] Migraine Problem Active 2020-12-30 Mem oria (disorder) 00:07:12 l Migraine Reece n (disorder) Active Problem 12/30/2020 [facility] Postproced Problem Active 2020-12-30 M emoria ural state 00:07:12 l finding [place] (finding) Postproced ural state finding (finding) Active Problem 12/30/2020 [facility] Muscle Problem Active 2020-12-30 Memor ia weakness 00:07:12 l of upper Muscle Reece n limb weakness (finding) of upper limb (finding) Active Problem 12/30/2020 [facility] Brachial Problem Active 2020-12-30 Mem oria plexus 00:07:12 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 (disorder) Active Problem 12/30/2020 [facility] Cerebrovas Problem Active 2020-12-30 M emoria cular 00:07:12 l accident [place] (disorder) Cerebrovas cular accident (disorder) Active Problem 12/30/2020 [facility] Cervical Problem Active 2020-12-30 Mem oria radiculopa 00:07:12 l thy Cervical Reece n (disorder) radiculopa thy (disorder) Active Problem 12/30/2020 [facility] Allergies, Adverse Reactions, Alerts Allergy Allergy Status Severity Reaction(s) Onset Inactive Treating Comm ents Source Name Type Date Date Clinician Dye Propensi Active Radiology [place] ty to 01-04 DYE [facility] adverse 00:00: Contrast st reaction 00 s to drug Betadine Propensi Active Hives, Rash Patient Chand Surgi-Pr ty to 03-31 reports [facility] ep adverse 00:00: blisterin st reaction 00 g and s to rashPatie drug nt reports blisterin g and rash iodine DA Active [facility]07 Clear 00:00: [place] 00 [facility] iodine iodine Active Memoria topical< topical< l sup>1</s sup>1</s Reece n up> up> Social History Social Habit Start Date Stop Date Quantity Comments Source Sex Assigned At [facility] Cigarettes smoked 2019-11-06 2019-11-06 [place] current (pack per 00:00:00 00:00:00 [facility] ) - Reported Cigarette 2019-11-06 2019-11-06 [place] pack-years 00:00:00 00:00:00 [facility] Tobacco use and 2019-11-06 2019-11-06 Never used [place] exposure 00:00:00 00:00:00 [facility] Alcohol intake 2019-11-06 2019-11-06 Current [place] 00:00:00 00:00:00 non-drinker of Yazidi alcohol (finding) Social History 2019-07-18 2019-07-18 [facility] maykel 15:14:03 15:14:03 History of tobacco 2017-08-28 Cigarette Smoker [place] use 00:00:00 [facility] Smoking Status Start Date Stop Date Source Former smoker 2019-11-06 00:00:00 2019-11-06 00:00:00 [place] [facility] Medications Ordered Filled Start Stop Current Ordering Indication Dosage Frequency Signature Comments Components Source Medication Medication Date Date Medication? Clinician (SIG) Name Name atorvastadiane Yes 20 mg = 2 M emoria n 10 mg 1-25 tab, PO, l oral tablet 21:02: Daily, # Brendon rmann 00 60 tab, 1 Refill(s), Pharmacy: [facility][id number], 162.56, cm, 12/22/20 14:47:[address], Height, 66.818, kg, 12/22/20 14:47:[address]GE, Weight atorsadaftati Yes 20 mg = 2 M emoria n 10 mg 1-25 tab, PO, l oral tablet 21:02: Daily, # Brendon rmann 00 60 tab, 1 Refill(s), Pharmacy: [facility] #[id number], 162.56, cm, 12/22/20 14:47:[address]GE, Height, 66.818, kg, 12/22/20 14:47:[address] JUDGE, Weight topiramate 2020-0 Yes 50 mg = 1 Me moria 50 mg oral 9-03 tab, PO, l tablet 18:52: BID, # 60 Reece n 00 tab, 3 Refill(s), Pharmacy: [facility] #[id number], 162.56, cm, 07/31/20 13:42:00 CDT, Height, 56.818, kg, 07/31/20 13:42:00 CDT, Weight topiramate 2020-0 Yes 50 mg = 1 Me moria 50 mg oral 9-03 tab, PO, l tablet 18:52: BID, # 60 Reece n 00 tab, 3 Refill(s), Pharmacy: [facility] #[id number], 162.56, cm, 07/31/20 13:42:00 CDT, Height, 56.818, kg, 07/31/20 13:42:00 CDT, Weight topiramate 2020-0 Yes 25 mg = 1 Me moria 25 MG Oral 4-15 tab, PO, l Tablet 20:04: BID, # 60 Reece n [Topamax] 00 tab, 2 Refill(s), Pharmacy: [facility] #[id number] topiramate 2020-0 Yes 25 mg = 1 Me moria 25 MG Oral 4-15 tab, PO, l Tablet 20:04: BID, # 60 Reece n [Topamax] 00 tab, 2 Refill(s), [id number] Morphine 2020-0 Yes 15 mg, PO, Mem oria 2-25 Q12H, 0 l 19:30: Refill(s) [place] 00 Morphine 2020-0 Yes 15 mg, PO, Mem oria 2-25 Q12H, 0 l 19:30: Refill(s) [place] topiramate 2020-0 Yes 25 mg = 1 Me moria 25 MG Oral 2-14 tab, PO, l Tablet 23:50: BID, # 60 Reece n [Topamax] 00 tab, 2 Refill(s), Pharmacy: [facility] #[id number] topiramate 2020-0 Yes 25 mg = 1 Me moria 25 MG Oral 2-14 tab, PO, l Tablet 23:50: BID, # 60 Reece n [Topamax] 00 tab, 2 Refill(s), [id number] Aspirin 81 2020-0 Yes 81 mg = 1 Me moria MG Enteric 1-09 tab, PO, l Coated 23:31: Daily, # [place] Tablet 00 90 tab, 3 Refill(s) Aspirin 81 2020-0 Yes 81 mg = 1 Me moria MG Enteric 1-09 tab, PO, l Coated 23:31: Daily, # [place] Tablet 00 90 tab, 3 Refill(s) oxcarbazepi 2020-0 Yes 150 mg = 1 Memoria ne 150 MG -09 tab, PO, l Oral Tablet 23:05: Bedtime, # [place] [Trileptal] 00 30 tab, 3 Refill(s), Pharmacy: [facility] #[id number] oxcarbazepi 2020-0 Yes 150 mg = 1 Memoria ne 150 MG -09 tab, PO, l Oral Tablet 23:05: Bedtime, # [place] [Trileptal] 00 30 tab, 3 Refill(s), Pharmacy: [facility] #[id number] atorvastati 2018-11 Yes 40 mg = 1 M emoria n 40 mg 2-11 tab, PO, l oral tablet 23:32: Daily, # Brendon naunann 39 30 tab, 2 Refill(s), Pharmacy: [facility] #[id number] atorvastati 2018-11 Yes 40 mg = 1 M emoria n 40 mg 2-11 tab, PO, l oral tablet 23:32: Daily, # Brendon monet 39 30 tab, 2 Refill(s), Pharmacy: [facility] #[id number] dexlansopra 2018-11 Yes 60mg Take 60 mg Chand zole 2-10 by mouth. [facility] (DEXILANT) 11:55: st 60 mg 03 capsule FLUoxetine 2018-11 Yes 20mg Take 20 mg [place] (PROzac) 20 2-10 by mouth. Met hodi MG tablet 11:55: st 03 hydrOXYzine 2018-11 Yes 25mg Take 25 mg Chand (ATARAX) 25 2-10 by mouth. Met hodi MG tablet 11:55: st 03 sucralfate 2018-11 Yes 1g Take 1 g Patrica ston (CARAFATE) 2-10 by mouth. Meth pantera 1 gram 11:55: st tablet 03 zolpidem 2018-11 Yes 5mg QD Take 5 mg [place] (AMBIEN) 5 2-10 by mouth Metho di MG tablet 11:46: nightly as st 13 needed for sleep. gabapentin 2018-11 Yes 600mg [id number] Take 600 Chand (NEURONTIN) 2-10 [id number] mg by M ethodi 600 mg 11:46: 3D mouth 3 st tablet 13 (three) times a day. morPHINE 2018-11 Yes 15mg Q12H Take 15 mg Patrica ston (MSIR) 15 2-10 by mouth Method i MG tablet 11:46: every 12 st 13 (twelve) hours as needed for severe pain. oxyCODone 2018-11 Yes 10mg Q6H Take 10 mg [place] (ROXICODONE 2-10 by mouth Meth panetra ) 10 MG 11:46: every 6 st tablet 13 (six) hours as needed for moderate pain. tiZANidine 2018-11 Yes 4mg Q8H Take 4 mg [place] (ZANAFLEX) 2-10 by mouth Metho di 4 MG tablet 11:46: every 8 st 13 (eight) hours as needed for muscle spasms. ondansetron 2018-11 Yes 4mg Q8H Take 4 mg [place] ODT 2-10 by mouth [facility] (ZOFRAN-ODT 11:46: every 8 st ) 4 MG 13 (eight) disintegrat hours as ing tablet needed for nausea or vomiting. pentoxifyll 2018-11 Yes [place] in[place] 2-05 [facility] (TRENTal) 00:00: st 400 mg CR 00 tablet atorvastati 2018-11 Yes 20mg QD Take [address] [facility] [facility] (LIPITOR) 1-29 tablet (20 Ebony kes - 20 MG 00:00: mg total) Medical tablet 00 by mouth Center nightly At bedtime. tiZANidine 2018-11 Yes muscle 4mg Take [address] (ZANAFLEX) 1-18 spasm by mouth [facility] - 4 MG tablet 17:29: every 8 Med ical 52 (eight) Center hours as needed. morphine 2018-11 Yes 15mg Take [address] [facility] (MS CONTIN) 1-18 by mouth Luke s - 15 MG 12 hr 17:29: every 12 Me dical tablet 52 (twelve) Center hours. lidocaine 2018-11 Yes 3{patch Q24H Place [address] (LIDODERM) 1-18 } patches [facility] - 5 % patch 17:29: onto the Medi willie 52 skin daily Center 12 hours on 12 hours off . gabapentin 2018-11 Yes 600mg [id number] Take [address] (NEURONTIN) 1-18 [id number] mg by L ukes - 600 MG 17:29: 3D mouth 3 Medical tablet 52 (three) Center times daily. zolpidem 2018-11 Yes 5mg QD Take [address] [facility] (AMBIEN) 5 1-18 by mouth [facility] - MG tablet 17:29: nightly Medic al 52 Every Center night at bedtime . propranolol 2018-11 Yes 1{tbl} QD Take [address] -hydrochlor 1-18 tablet by [place] es - othiazide 17:29: mouth Medical (INDERIDE) [address] 40-25 mg not listed per tablet on patient medication sheet . amLODIPine 2018-11 Yes 5mg QD Take [address] (NORVASC) 5 1-18 by mouth Luke s - MG tablet 17:29: every Medical 52 morning. Center dexlansopra 2018-11 Yes 60mg QD Take [address] zole 60 mg 1-18 by mouth [facility] - capsule 17:29: daily. Medical 52 Center topiramate 2018-11 Yes 25mg Q.5D Take [address] (TOPAMAX) 1-18 by mouth 2 [facility] - 25 MG 17:29: (two) Medical tablet 52 times Center daily. sucralfate 2018-11 Yes 1g Q.25D Take [address] (CARAFATE) 1-18 by mouth 4 Kimber[place] es - 1 gram 17:29: (four) Medical tablet 52 times Center daily. FLUoxetine 2018-11 Yes 20mg QD Take [address] (PROZAC) 20 1-18 by mouth [facility] - MG tablet 17:29: daily. Medica l 52 Center hydrOXYzine 2018-11 Yes 25mg Q.5D Take [address] (ATARAX) 25 1-18 by mouth 2 Ebony kes - MG tablet 17:29: (two) Medical 52 times Center daily. lactulose 2018-11 Yes 20g Q.5D Take 30 [facility] (CHRONULAC) 1-18 mLs (20 g Kimberly es - 20 gram/30 00:00: total) by Me dical mL solution 00 mouth 2 Cente r (two) times daily. buPROPion 2018-11 Yes 300mg QD Take 300 [address] XL 0-31 mg by Methodi (WELLBUTRIN 00:00: mouth st XL) 300 MG 00 daily. 24 hr tablet olopatadine 2018-11 Yes INT 1 GTT [place] (PATANOL) 0-30 IN OU BID Metho di 0.1 % 00:00: PRF st ophthalmic 00 ITCHING solution FLUoxetine 2018-11 Yes 40mg QD Take 40 mg [place] (PROzac) 40 0-29 by mouth Meth pantera MG capsule 00:00: daily. st 00 amLODIPine 2018-11 Yes 5mg Take 5 mg [place] (NORVASC) 5 0-28 by mouth Meth pantera mg tablet 00:00: as needed. st 00 topiramate 2018-11 Yes 25 mg = 1 Me moria 25 MG Oral 0-23 tab, PO, l Tablet 18:40: BID, # 60 Reece n [Topamax] 02 tab, 2 Refill(s), Pharmacy: [facility] #[id number] topiramate 2018-11 Yes 25 mg = 1 Me moria 25 MG Oral 0-23 tab, PO, l Tablet 18:40: BID, # 60 Reece n [Topamax] 02 tab, 2 Refill(s), Pharmacy: [facility] #[id number] topiramate 2019-0 Yes 25 mg = 1 Me moria 25 MG Oral 8-21 tab, PO, l Tablet 15:45: Bedtime, # Mary nn [Topamax] 00 30 tab, 2 Refill(s), Pharmacy: [facility] #[id number] topiramate 2019-0 Yes 25 mg = 1 Me moria 25 MG Oral 8-21 tab, PO, l Tablet 15:45: Bedtime, # Mary nn [Topamax] 00 30 tab, 2 Refill(s), Pharmacy: [facility] #[id number] atorvastati 0 Yes PO, Daily, Memoria n 8-21 0 l 15:28: Refill(s) Amlodipine 2019-0 Yes PO, Daily, M emoria 8-21 0 l 15:28: Refill(s) atorvastati 20190 Yes PO, Daily, Memoria n 8-21 0 l 15:28: Refill(s) Amlodipine 2019-0 Yes PO, Daily, M emoria 8-21 0 l 15:28: Refill(s) Zanaflex 0 Yes 4 mg, PO, Rao caity 8-21 Q8H, 0 l 15:00: Refill(s) oxyCODONE 0 Yes 10 mg = 1 Mem oria 10 mg oral 8-21 tab, PO, l tablet, 15:00: Q6H, 0 Refill(s) release gabapentin 20190 Yes 600 mg, Rao caity 8-21 PO, TID, 0 l 15:00: Refill(s) Ambien 2019-0 Yes 5 mg, PO, Memori a 8-21 Bedtime, 0 l 15:00: Refill(s) Lidocaine 2019-0 Yes See Memoria 8-21 Instructio l 15:00: ns, 5 % Transderma l q12, 0 Refill(s) Protonix 2019-0 Yes 40 mg, PO, Mem oria 8-21 Daily, 0 l 15:00: Refill(s) Ondansetron 2019- Yes 4 mg = 1 Me moria 4 MG Oral 8-21 tab, PO, l Tablet 15:00: Q8H, 0 [Zofran] Refill(s) Hydroxyzine 2019-0 Yes 25 mg = 1 M emoria 8-21 tab, PO, l 15:00: Q6H, PRN rash / allergy symptoms, 0 Refill(s) Fluoxetine 20190 Yes 60 mg, PO, M emoria 8-21 Daily, 0 l 15:00: Refill(s) Zanaflex 20190 Yes 4 mg, PO, Rao caity 8-21 Q8H, 0 l 15:00: Refill(s) oxyCODONE Yes 10 mg = 1 Mem oria 10 mg oral 8-21 tab, PO, l tablet, 15:00: Q6H, 0 Refill(s) release gabapentin 0 Yes 600 mg, Rao caity 8- PO, TID, 0 l 15:00: Refill(s) Ambien 20190 Yes 5 mg, PO, Memori a 07-18 Bedtime, 0 l 15:00: Refill(s) Lidocaine 2019-0 Yes See Memoria 07-18 Instructio l 15:00: ns, 5 % Transderma l q12, 0 Refill(s) Protonix 20190 Yes 40 mg, PO, Mem oria 8 Daily, 0 l 15:00: Refill(s) Ondansetron 2019-0 Yes 4 mg = 1 Me moria 4 MG Oral 8-21 tab, PO, l Tablet 15:00: Q8H, 0 [Zofran] Refill(s) Hydroxyzine 2019-0 Yes 25 mg = 1 M emoria 8-21 tab, PO, l 15:00: Q6H, PRN rash / allergy symptoms, 0 Refill(s) Fluoxetine 2019-0 Yes 60 mg, PO, M emoria 8-21 Daily, 0 l 15:00: Refill(s) atorvastati 2018-0 Yes 1{tbl} Q.5D Take 1 [place] (LIPITOR) 2-14 tablet by hodi 20 MG 00:00: mouth 2 st tablet 00 (two) times a day. pantoprazol Yes 1{tbl} QD Take 1 [place] e 2-08 tablet by [facility] (PROTONIX) 00:00: mouth st 40 MG EC 00 daily. tablet Immunizations Ordered Immunization Filled Immunization Date Status Commen ts Source Name Name FLUCELVAX QUAD PF 2017-10-06 Completed [place] 00:00:00 [facility] Pneumococcal 2017-10-06 Completed [place] Conjugate 13-Valent 00:00:00 Meth[facility] dist Vital Signs Vital Name Observation Time Observation Value Comments Source Systolic (mm Hg) 2020-12-22 20:47:00 Rao rial [place] Diastolic (mm Hg) 2020-12-22 20:47:00 Mem orial [place] Height 2020-12-22 20:47:00 162.56 cm [facility] [place] Weight 2020-12-22 20:47:00 [facility] [place] BMI Calculated 2020-12-22 20:47:00 Memori al [place] Systolic (mm Hg) 2020-07-31 18:42:00 Rao rial [place] Diastolic (mm Hg) 2020-07-31 18:42:00 Mem orial [place] Heart Rate 2020-07-31 18:42:00 [facility] [place] Respitory Rate 2020-07-31 18:42:00 Memori al [place] Height 2020-07-31 18:42:00 162.56 cm [facility] [place] Weight 2020-07-31 18:42:00 [facility] [place] BMI Calculated 2020-07-31 18:42:00 Memori al [place] Temperature Oral (F) 2020-07-31 18:42:00 96.9 F [facility] [place] Systolic (mm Hg) 2020-01-22 17:49:00 Rao rial [place] Diastolic (mm Hg) 2020-01-22 17:49:00 Mem orial [place] Heart Rate 2020-01-22 17:49:00 [facility] [place] Respitory Rate 2020-01-22 17:49:00 Memori al [place] Height 2020-01-22 17:49:00 162.56 cm [facility] [place] Weight 2020-01-22 17:49:00 [facility] [place] BMI Calculated 2020-01-22 17:49:00 Memori al [place] Systolic (mm Hg) 2020-01-11 21:53:00 Rao rial [place] Diastolic (mm Hg) 2020-01-11 21:53:00 Mem orial [place] Heart Rate 2020-01-11 21:53:00 [facility] [place] Height 2020-01-11 21:53:00 162.56 cm [facility] [place] Weight 2020-01-11 21:53:00 [facility] [place] BMI Calculated 2020-01-11 21:53:00 Memori al [place] Systolic (mm Hg) 2019-12-06 22:16:00 Rao rial [place] Diastolic (mm Hg) 2019-12-06 22:16:00 Mem orial [place] Heart Rate 2019-12-06 22:16:00 [facility] [place] Respitory Rate 2019-12-06 22:16:00 Memori al [place] Height 2019-12-06 22:16:00 162.56 cm [facility] [place] Weight 2019-12-06 22:16:00 [facility] [place] BMI Calculated 2019-12-06 22:16:00 Memori al [place] Height 2019-11-09 17:41:00 162.56 cm [facility] [place] Weight 2019-11-09 17:41:00 [facility] [place] BMI Calculated 2019-11-09 17:41:00 Memori al [place] Systolic (mm Hg) 2019-09-19 18:12:00 Rao rial [place] Diastolic (mm Hg) 2019-09-19 18:12:00 Mem orial [place] Heart Rate 2019-09-19 18:12:00 [facility] [place] Respitory Rate 2019-09-19 18:12:00 Memori al [place] Height 2019-09-19 18:12:00 162.56 cm [facility] [place] Weight 2019-09-19 18:12:00 [facility] [place] BMI Calculated 2019-09-19 18:12:00 Memori al [place] Systolic (mm Hg) 2019-08-23 19:05:00 Rao rial [place] Diastolic (mm Hg) 2019-08-23 19:05:00 Mem orial [place] Heart Rate 2019-08-23 19:05:00 [facility] [place] Respitory Rate 2019-08-23 19:05:00 Memori al [place] Height 2019-08-23 19:05:00 162.56 cm [facility] [place] Weight 2019-08-23 19:05:00 [facility] [place] BMI Calculated 2019-08-23 19:05:00 Memlexa carroll [place] Systolic (mm Hg) 2019-07-18 14:57:00 Rao torrez [place] Diastolic (mm Hg) 2019-07-18 14:57:00 Mem jaswinder [place] Heart Rate 2019-07-18 14:57:00 [facility] [place] Respitory Rate 2019-07-18 14:57:00 Memori al [place] Height 2019-07-18 14:57:00 162.56 cm [facility] [place] Weight 2019-07-18 14:57:00 [facility] [place] BMI Calculated 2019-07-18 14:57:00 Memlexa al [place] Procedures Procedure Date / Time Performed Performing Clinician Sourc e Arthroplasty [facility] Laminectomy [facility] Plan of Care Planned Activity Planned Date Details Comments Source Future Scheduled 2024-10-[address] [facility] Test 00:00:00 (procedure) [code = [facility] 99142185] Future Scheduled 2021-06-28 INFLUENZA VACCINE [place] [facility] Test 00:00:00 [code = INFLUENZA VACCINE] Future Scheduled 2020-11-[address] [facility] - Test 00:00:00 (12+) [code = [facility] DEPRESSION SCREENING (12+)] Future Scheduled 2020-07-29 INFLUENZA VACCINE (#1) [facility] Test 00:[facility]:00 [code = INFLUENZA Medical Ce nter VACCINE (#1)] Future Scheduled 2014 BREAST CANCER [place] [facility] Test 00:00:00 SCREENING [code = BREAST CANCER SCREENING] Future Scheduled 2014 COLONOSCOPY SCREENING [place] [facility] Test 00:00:00 [code = COLONOSCOPY SCREENING] Future Scheduled 2014 SHINGLES VACCINES (#1) [place] [facility] Test 00:00:00 [code = SHINGLES VACCINES (#1)] Future Scheduled [address] [facility] - Test 00:00:00 malignant neoplasm of Medica l Center cervix (procedure) [code = 119886760] Future Scheduled 1985 Screening for [place] [facility] Test 00:00:00 malignant neoplasm of cervix (procedure) [code = 701825386] Future Scheduled 1982 Hepatitis C screening [place] [facility] Test 00:00:00 (procedure) [code = 469079728] Future Scheduled 1980 COVID-19 VACCINE (1) Patricajose david [facility] Test 00:00:00 [code = COVID-19 VACCINE (1)] Future Scheduled [address] [facility] - Test 00:00:00 0-64 YRS (1 of 1 - Medical C enter PPSV23) [code = PNEUMOCOCCAL VACCINE 0-64 YRS (1 of 1 - PPSV23)] Future Scheduled [address] [facility] - Test 00:00:00 [facility] breast (procedure) [code = 123712300] Future Scheduled [address] [facility] - Test 00:00:00 malignant neoplasm of [facility] colon (procedure) [code = 903217216] Encounters Start End Encounter Admission Attending Care Care Encounter Source Date/Time Date/Time Type Type Clinicians Facility Department ID 2020-12-26 2020-12-27 Outpatient MHMISCHER MHMISCHER [id number] 11:32:20 23:59:59 00 2020-12-26 2020-12-27 Outpatient MHMISCHER MHMISCHER [id number] 11:32:20 23:59:59 00 2020-12-22 2020-12-22 Outpatient Shannon, MHMISCHER MHMISCHER [id number] 14:30:00 23:59:59 Ab 15 Abran 2020-12-22 2020-12-22 Outpatient Shannon MHMISCHER MHMISCHER [id number] 14:30:00 23:59:59 Ab 15 Abran 2020-12-04 2020-12-04 Outpatient Shannon, MHMISCHER MHMISCHER [id number] 13:15:00 13:15:00 Ab 14 Abran 2020-12-04 2020-12-04 Outpatient Shannon, MHMISCHER MHMISCHER [id number] 13:15:00 13:15:00 Ab 14 Abran 2020-09-30 2020-09-30 Outpatient [facility] [id number] [address] [place] [address] 00:00:00 00:00:00 [facility]IL[facility] [address] 2020-07-31 2020-07-31 Outpatient Krell, MHMISCHER MHMISCHER [id number] 13:15:00 23:59:59 Ab 13 Abran 2020-07-31 2020-07-31 Outpatient Krell, MHMISCHER MHMISCHER [id number] 13:15:00 23:59:59 Ab 13 Abran 2020-07-29 2020-07-29 Outpatient Krell, MHMISCHER MHMISCHER [id number] 11:15:00 11:15:00 Ab 12 Abran 2020-07-29 2020-07-29 Outpatient Krell, MHMISCHER MHMISCHER [id number] 11:15:00 11:15:00 Ab 12 Abran 2020-06-06 2020-06-06 Outpatient Krell, MHMISCHER MHMISCHER [id number] 13:00:00 13:00:00 Ab 11 Abran 2020-06-06 2020-06-06 Outpatient Krell, MHMISCHER MHMISCHER [id number] 13:00:00 13:00:00 Ab 11 Abran 2020-03-12 2020-03-12 Outpatient Krell, MHMISCHER MHMISCHER [id number] 13:45:00 23:59:59 Ab 09 Abran 2020-03-12 2020-03-12 Outpatient Krell, MHMISCHER MHMISCHER [id number] 13:45:00 23:59:59 Ab 09 Abran 2020-01-22 2020-01-22 Outpatient Krell, MHMISCHER MHMISCHER [id number] 11:45:00 23:59:59 Ab 10 Abran 2020-01-22 2020-01-22 Outpatient Krell, MHMISCHER MHMISCHER [id number] 11:45:00 23:59:59 Ab 10 Abran 2020-01-11 2020-01-11 Outpatient Krell, MHMISCHER MHMISCHER [id number] 14:15:00 23:59:59 Ab 08 Abran 2020-01-11 2020-01-11 Outpatient Krell, MHMISCHER MHMISCHER [id number] 14:15:00 23:59:59 Ab 08 Abran 2020-01-11 2020-01-11 Outpatient Krell, MHMISCHER MHMISCHER [id number] 14:15:00 14:15:00 Ab 07 Abran 2020-01-11 2020-01-11 Outpatient Shannon, MHMISCHER MHMISCHER [id number] 14:15:00 14:15:00 Ab 07 Abran 2019-12-06 2019-12-06 Outpatient Shannon, MHMISCHER MHMISCHER [id number] 16:00:00 23:59:59 Ab 06 Abran 2019-12-06 2019-12-06 Outpatient Shannon, MHMISCHER MHMISCHER [id number] 16:00:00 23:59:59 Ab 06 Abran 2019-12-05 2019-12-05 Outpatient Shannon, MHMISCHER MHMISCHER [id number] 08:15:00 08:15:00 Ab 05 Abran 2019-12-05 2019-12-05 Outpatient Shannon, MHMISCHER MHMISCHER [id number] 08:15:00 08:15:00 Ab 05 Abran 2019-11-16 2019-11-16 Outpatient Shannon, MHMISCHER MHMISCHER [id number] 13:00:00 13:00:00 Ab 03 Abran 2019-11-16 2019-11-16 Outpatient Shannon, MHMISCHER MHMISCHER [id number] 13:00:00 13:00:00 Ab 03 Abran 2019-11-09 2019-11-09 Outpatient Shannon, MHMISCHER MHMISCHER [id number] 11:30:00 23:59:59 Ab 04 Abran 2019-11-09 2019-11-09 Outpatient Michellell, MHMISCHER MHMISCHER [id number] 11:30:00 23:59:59 Ab 04 Abran 2019-09-19 2019-09-19 Outpatient Michellell, MHMISCHER MHMISCHER [id number] 13:00:00 23:59:59 Ab Abran 2019-09-19 2019-09-19 Outpatient Krell, MHMISCHER MHMISCHER [id number] 13:00:00 23:59:59 Ab Abran 2019-08-23 2019-08-23 Outpatient Shannon, MHMISCHER MHMISCHER [id number] 13:30:00 23:59:59 Ab Abran 2019-08-23 2019-08-23 [id number] 13:30:00 23:59:59 Ab Abran 2019-07-18 2019-07-18 [id number] 09:15:00 23:59:59 Ab Abran 2019-07-18 2019-07-18 [facility] [id number] 09:15:00 23:59:59 Ab Abran Results Test Description Test Time Test Comments Results Result Comments Source AFB CULTURE + SMEAR 2019-11-27 12:03:00 Test Item Value Reference Range Interpretation Comme nts CULTURE (BEAKER) (test code = 1095) No acid-fast bacilli isolated i n 42 days AFB SMEAR (BEAKER) (test code = 994) No acid fast bacilli seen FUNGUS CULTURE + [id number] 18:46:00 Test Item Value Reference Range Interpretation Comments CULTURE (BEAKER) A 1+ Jo-Ann albicans (test code = 1095) FUNGUS SMEAR No fungi seen (BEAKER) (test code = 1406) MISCELLANEOUS LAB [id number] 07:43:00 Test Item Value Reference Range Interpretation Comments SCAN RESULT (test code = 2508454) CBC W/PLT COUNT & AUTO [id number] 11:31:00 Test Item Value Reference Range Interpretation Comments WHITE BLOOD CELL COUNT 13.8 K/ L 3.5-10.5 H (BEAKER) (test code = 775) RED BLOOD CELL COUNT (BEAKER) 4.18 M/ L 3.93-5.22 (test code = 761) HEMOGLOBIN (BEAKER) (test code 10.8 GM/DL 11.2-15.7 L = 410) HEMATOCRIT (BEAKER) (test code 34.9 % 34.1-44.9 = 411) MEAN CORPUSCULAR VOLUME 83.5 fL 79.4-94.8 (BEAKER) (test code = 753) MEAN CORPUSCULAR HEMOGLOBIN 25.8 pg 25.6-32.2 (BEAKER) (test code = 751) MEAN CORPUSCULAR HEMOGLOBIN 30.9 GM/DL 32.2-35.5 L CONC (BEAKER) (test code = 752) RED CELL DISTRIBUTION WIDTH 19.3 % 11.7-14.4 H (BEAKER) (test code = 412) PLATELET COUNT (BEAKER) (test 364 K/CU MM 150-450 Post vortex code = 756) MEAN PLATELET VOLUME (BEAKER) 10.3 fL 9.4-12.3 (test code = 754) NUCLEATED RED BLOOD CELLS 0 /100 WBC 0-0 (BEAKER) (test code = 413) NEUTROPHILS RELATIVE PERCENT 74 % (BEAKER) (test code = 429) LYMPHOCYTES RELATIVE PERCENT 16 % (BEAKER) (test code = 430) MONOCYTES RELATIVE PERCENT 7 % (BEAKER) (test code = 431) EOSINOPHILS RELATIVE PERCENT 1 % (BEAKER) (test code = 432) BASOPHILS RELATIVE PERCENT 1 % (BEAKER) (test code = 437) NEUTROPHILS ABSOLUTE COUNT 10.19 K/ L 1.56-6.13 H (BEAKER) (test code = 670) LYMPHOCYTES ABSOLUTE COUNT 2.17 K/ L 1.18-3.74 (BEAKER) (test code = 414) MONOCYTES ABSOLUTE COUNT 1.01 K/ L 0.24-0.36 H (BEAKER) (test code = 415) EOSINOPHILS ABSOLUTE COUNT 0.18 K/ L 0.04-0.36 (BEAKER) (test code = 416) BASOPHILS ABSOLUTE COUNT 0.08 K/ L 0.01-0.08 (BEAKER) (test code = 417) IMMATURE GRANULOCYTES-RELATIVE 1 % 0-1 PERCENT (BEAKER) (test code = 2801) POCT-GLUCOSE [id number] 08:15:00 Test Item Value Reference Range Interpretation Comments POC-GLUCOSE METER 87 mg/dL 70-110 : TESTED A T [facility] 6720 (BEAKER) (test code = [place], 1538) [id number]: [employer] Director/Techni theo ID = [id number] for MICHAEL Harrison LATOYAODILON [id number] 08:08:00 Test Item Value Reference Range Interpretation Comments MAGNESIUM (BEAKER) 1.6 mg/dL 1.6-2.6 Specimen slightly (test code = 627) hemolyzed COMPREHENSIVE METABOLIC [id number] 08:08:00 Test Item Value Reference Range Interpretation Comments TOTAL PROTEIN 6.9 gm/dL 6.0-8.3 Specimen sligh tly (BEAKER) (test code = hemoly zed 770) ALBUMIN (BEAKER) 3.7 g/dL 3.5-5.0 Specimen sl ightly (test code = 1145) hemolyzed ALKALINE PHOSPHATASE 140 U/L 40-150 (BEAKER) (test code = 346) BILIRUBIN TOTAL 1.0 mg/dL 0.2-1.2 Specimen sli ghtly (BEAKER) (test code = hemoly zed 377) SODIUM (BEAKER) (test 137 meq/L 136-145 code = 381) POTASSIUM (BEAKER) 4.4 meq/L 3.5-5.1 Specimen slightly (test code = 379) hemolyzed CHLORIDE (BEAKER) 109 meq/L 98-107 H (test code = 382) CO2 (BEAKER) (test 20 meq/L 22-29 L code = 355) BLOOD UREA NITROGEN 11 mg/dL 7-21 (BEAKER) (test code = 354) CREATININE (BEAKER) 0.74 mg/dL 0.57-1.25 Specimen slightly (test code = 358) hemolyzed GLUCOSE RANDOM 99 mg/dL 70-105 (BEAKER) (test code = 652) CALCIUM (BEAKER) 9.2 mg/dL 8.4-10.2 (test code = 697) AST (SGOT) (BEAKER) 92 U/L 5-34 H Specimen slightly (test code = 353) hemolyzed ALT (SGPT) (BEAKER) 273 U/L 6-55 H Specimen slightly (test code = 347) hemolyzed EGFR (BEAKER) (test 81 mL/min/1.73 ESTIMA GREY GFR IS code = 1092) sq m NOT ACCURATE CREATININE CLEARANCE IN PREDICTING GLOMERULAR FILTRATION RATE . ESTIMATED GFR I S NOT APPLICABLE FOR DIALYSIS PATIEN TS. POCT-GLUCOSE [id number] 23:32:00 Test Item Value Reference Range Interpretation Comments POC-GLUCOSE METER 98 mg/dL 70-110 : TESTED A T [facility] 6720 (BEAKER) (test code = [place], 1538) [id number]: [employer] Director/Techni theo ID = [id number] for PATEL TEJADA POCT-GLUCOSE [id number] 17:52:00 Test Item Value Reference Range Interpretation Comments POC-GLUCOSE METER 88 mg/dL 70-110 : TESTED A T [facility] 6720 (BEAKER) (test code = LIV Dozier [place], 1538) [id number]: [employer] Director/Techni theo ID = [id number] for DOBB INS, ZAK POCT-GLUCOSE [id number] 11:53:00 Test Item Value Reference Range Interpretation Comments POC-GLUCOSE METER 161 mg/dL 70-110 H : TESTED A T [facility] 6720 (BEAKER) (test code = LIV Dozier [facility], 1538) [id number]: [employer] Director/Techni theo ID = [id number] for DO BBINS, ZAK BRONCHIAL CULTURE + GRAM [id number] 10:38:00 Test Item Value Reference Range Interpretation Comments CULTURE (BEAKER) (test See comment code = 1095) GRAM STAIN RESULT 2+ White blood cells (BEAKER) (test code = seen 1123) GRAM STAIN RESULT No organisms seen (BEAKER) (test code = 146229) 1+ YeastRAD, CHEST, 1 VIEW, NON [id number] 08:59:00Reason for exam:- >endotracheal intubationShould this be performed at the bedside?->YesFINAL REPORT Chest, one view History: Respiratory failure Comparison: 10/13/2019 Findings:Moderate bilateral interstitial opacities, similar to previous examination. This could represent atypical infectious process or pulmonary edema. Normal size heart. No pleural effusion or p neumothorax. Postsurgical changes of recent open reduction/internal fixation of the left clavicle. Impression:No significant interval change. Signed: Jerrell Silva MDRort Verified Date/Time: 10/14/2019 08:59:12 Reading Location: [address] Transitional Reading Room [id number] 08:38:00 Test Item Value Reference Range Interpretation Comments MAGNESIUM (BEAKER) 2.0 mg/dL 1.6-2.6 Specimen slightly (test code = 627) hemolyzed COMPREHENSIVE METABOLIC [id number] 08:38:00 Test Item Value Reference Range Interpretation Comments TOTAL PROTEIN 7.5 gm/dL 6.0-8.3 Specimen sligh tly (BEAKER) (test code = hemoly zed 770) ALBUMIN (BEAKER) 3.8 g/dL 3.5-5.0 Specimen sl ightly (test code = 1145) hemolyzed ALKALINE PHOSPHATASE 156 U/L 40-150 H (BEAKER) (test code = 346) BILIRUBIN TOTAL 1.1 mg/dL 0.2-1.2 Specimen sli ghtly (BEAKER) (test code = hemoly zed 377) SODIUM (BEAKER) (test 139 meq/L 136-145 code = 381) POTASSIUM (BEAKER) 3.8 meq/L 3.5-5.1 Specimen slightly (test code = 379) hemolyzed CHLORIDE (BEAKER) 110 meq/L 98-107 H (test code = 382) CO2 (BEAKER) (test 19 meq/L 22-29 L code = 355) BLOOD UREA NITROGEN 13 mg/dL 7-21 (BEAKER) (test code = 354) CREATININE (BEAKER) 0.79 mg/dL 0.57-1.25 Specimen slightly (test code = 358) hemolyzed GLUCOSE RANDOM 85 mg/dL 70-105 (BEAKER) (test code = 652) CALCIUM (BEAKER) 9.4 mg/dL 8.4-10.2 (test code = 697) AST (SGOT) (BEAKER) 55 U/L 5-34 H Specimen slightly (test code = 353) hemolyzed ALT (SGPT) (BEAKER) 307 U/L 6-55 H Specimen slightly (test code = 347) hemolyzed EGFR (BEAKER) (test 76 mL/min/1.73 ESTIMA GREY GFR IS code = 1092) sq m NOT ACCURATE CREATININE CLEARANCE IN PREDICTING GLOMERULAR FILTRATION RATE . ESTIMATED GFR I S NOT APPLICABLE FOR DIALYSIS PATIEN TS. CBC W/PLT COUNT & AUTO [id number] 08:23:00 Test Item Value Reference Range Interpretation Comments WHITE BLOOD CELL COUNT (BEAKER) 20.5 K/ L 3.5-10.5 H (test code = 775) RED BLOOD CELL COUNT (BEAKER) 4.51 M/ L 3.93-5.22 (test code = 761) HEMOGLOBIN (BEAKER) (test code = 11.7 GM/DL 11.2-15.7 410) HEMATOCRIT (BEAKER) (test code = 37.7 % 34.1-44.9 411) MEAN CORPUSCULAR VOLUME (BEAKER) 83.6 fL 79.4-94.8 (test code = 753) MEAN CORPUSCULAR HEMOGLOBIN 25.9 pg 25.6-32.2 (BEAKER) (test code = 751) MEAN CORPUSCULAR HEMOGLOBIN CONC 31.0 GM/DL 32.2-35.5 L (BEAKER) (test code = 752) RED CELL DISTRIBUTION WIDTH 19.5 % 11.7-14.4 H (BEAKER) (test code = 412) PLATELET COUNT (BEAKER) (test 354 K/CU MM 150-450 code = 756) MEAN PLATELET VOLUME (BEAKER) 10.6 fL 9.4-12.3 (test code = 754) NUCLEATED RED BLOOD CELLS 0 /100 WBC 0-0 (BEAKER) (test code = 413) NEUTROPHILS RELATIVE PERCENT 77 % (BEAKER) (test code = 429) LYMPHOCYTES RELATIVE PERCENT 14 % (BEAKER) (test code = 430) MONOCYTES RELATIVE PERCENT 7 % (BEAKER) (test code = 431) EOSINOPHILS RELATIVE PERCENT 1 % (BEAKER) (test code = 432) BASOPHILS RELATIVE PERCENT 0 % (BEAKER) (test code = 437) NEUTROPHILS ABSOLUTE COUNT 15.78 K/ L 1.56-6.13 H (BEAKER) (test code = 670) LYMPHOCYTES ABSOLUTE COUNT 2.88 K/ L 1.18-3.74 (BEAKER) (test code = 414) MONOCYTES ABSOLUTE COUNT (BEAKER) 1.45 K/ L 0.24-0.36 H (test code = 415) EOSINOPHILS ABSOLUTE COUNT 0.10 K/ L 0.04-0.36 (BEAKER) (test code = 416) BASOPHILS ABSOLUTE COUNT (BEAKER) 0.08 K/ L 0.01-0.08 (test code = 417) IMMATURE GRANULOCYTES-RELATIVE 1 % 0-1 PERCENT (BEAKER) (test code = 2801) POCT-GLUCOSE [id number] 07:07:00 Test Item Value Reference Range Interpretation Comments POC-GLUCOSE METER 84 mg/dL 70-110 : TESTED A T [facility] 6720 (BEAKER) (test code = [place], 1538) [id number]: [employer] Director/Techni theo ID = [id number] for Kamille Magana BLOOD GAS, [id number] 04:38:00 Test Item Value Reference Range Interpretation Comments PH ARTERIAL (BEAKER) (test code = 7.47 7.35-7.45 H 383) PCO2 ARTERIAL (BEAKER) (test code 30 mmHg 35-45 L = 384) PO2 ARTERIAL (BEAKER) (test code 120 mmHg 80-90 H = 385) O2 SATURATION ARTERIAL (BEAKER) 98.5 % 96.0-97.0 H (test code = 386) HCO3 ARTERIAL (BEAKER) (test code 21 mmol/L 21-29 = 388) BASE EXCESS ARTERIAL (BEAKER) -1.2 mmol/L -2.0-3.0 (test code = 387) PATIENT TEMPERATURE (BEAKER) 37.9 C (test code = 1818) FIO2 (BEAKER) (test code = 1819) 36.0 % POCT-GLUCOSE [id number] 01:19:00 Test Item Value Reference Range Interpretation Comments POC-GLUCOSE METER 152 mg/dL 70-110 H : TESTED A T [facility] 6720 (BEAKER) (test code = [facility], 153) [id number]: [employer] Director/Techni theo ID = [id number] for Kamille Garcia BLOOD [id number] 19:01:00 Test Item Value Reference Range Interpretation Comments CULTURE (BEAKER) (test No growth in 5 days code = 1095) POCT-GLUCOSE [id number] 18:11:00 Test Item Value Reference Range Interpretation Comments POC-GLUCOSE METER 82 mg/dL 70-110 : TESTED A T [facility] 6720 (BEAKER) (test code = [facility], 1538) [id number]: [employer] Director/Techni theo ID = [id number] for DOBB INS, ZAK POCT-GLUCOSE [id number] 12:34:00 Test Item Value Reference Range Interpretation Comments POC-GLUCOSE METER 87 mg/dL 70-110 : TESTED A T [facility] 6720 (BEAKER) (test code = [facility], 1538) [id number]: [employer] Director/Techni theo ID = [id number] for SAND ERS, GIDEON CBC W/PLT COUNT & AUTO [id number] 09:13:00 Test Item Value Reference Range Interpretation Comments WHITE BLOOD CELL COUNT (BEAKER) 13.4 K/ L 3.5-10.5 H (test code = 775) RED BLOOD CELL COUNT (BEAKER) 3.13 M/ L 3.93-5.22 L (test code = 761) HEMOGLOBIN (BEAKER) (test code = 8.0 GM/DL 11.2-15.7 L 410) HEMATOCRIT (BEAKER) (test code = 25.9 % 34.1-44.9 L 411) MEAN CORPUSCULAR VOLUME (BEAKER) 82.7 fL 79.4-94.8 (test code = 753) MEAN CORPUSCULAR HEMOGLOBIN 25.6 pg 25.6-32.2 (BEAKER) (test code = 751) MEAN CORPUSCULAR HEMOGLOBIN CONC 30.9 GM/DL 32.2-35.5 L (BEAKER) (test code = 752) RED CELL DISTRIBUTION WIDTH 20.0 % 11.7-14.4 H (BEAKER) (test code = 412) PLATELET COUNT (BEAKER) (test 155 K/CU MM 150-450 code = 756) MEAN PLATELET VOLUME (BEAKER) 12.0 fL 9.4-12.3 (test code = 754) NUCLEATED RED BLOOD CELLS 0 /100 WBC 0-0 (BEAKER) (test code = 413) NEUTROPHILS RELATIVE PERCENT 75 % (BEAKER) (test code = 429) LYMPHOCYTES RELATIVE PERCENT 15 % (BEAKER) (test code = 430) MONOCYTES RELATIVE PERCENT 7 % (BEAKER) (test code = 431) EOSINOPHILS RELATIVE PERCENT 2 % (BEAKER) (test code = 432) BASOPHILS RELATIVE PERCENT 0 % (BEAKER) (test code = 437) NEUTROPHILS ABSOLUTE COUNT 10.02 K/ L 1.56-6.13 H (BEAKER) (test code = 670) LYMPHOCYTES ABSOLUTE COUNT 1.95 K/ L 1.18-3.74 (BEAKER) (test code = 414) MONOCYTES ABSOLUTE COUNT (BEAKER) 0.94 K/ L 0.24-0.36 H (test code = 415) EOSINOPHILS ABSOLUTE COUNT 0.23 K/ L 0.04-0.36 (BEAKER) (test code = 416) BASOPHILS ABSOLUTE COUNT (BEAKER) 0.05 K/ L 0.01-0.08 (test code = 417) IMMATURE GRANULOCYTES-RELATIVE 1 % 0-1 PERCENT (BEAKER) (test code = 2801) [id number] 06:55:00 Test Item Value Reference Range Interpretation Comments MAGNESIUM (BEAKER) (test code = 1.8 mg/dL 1.6-2.6 627) COMPREHENSIVE METABOLIC [id number] 06:55:00 Test Item Value Reference Range Interpretation Comments TOTAL PROTEIN 5.7 gm/dL 6.0-8.3 L (BEAKER) (test code = 770) ALBUMIN (BEAKER) 3.1 g/dL 3.5-5.0 L (test code = 1145) ALKALINE PHOSPHATASE 130 U/L 40-150 (BEAKER) (test code = 346) BILIRUBIN TOTAL 1.0 mg/dL 0.2-1.2 (BEAKER) (test code = 377) SODIUM (BEAKER) (test 142 meq/L 136-145 code = 381) POTASSIUM (BEAKER) 3.6 meq/L 3.5-5.1 (test code = 379) CHLORIDE (BEAKER) 116 meq/L 98-107 H (test code = 382) CO2 (BEAKER) (test 21 meq/L 22-29 L code = 355) BLOOD UREA NITROGEN 18 mg/dL 7-21 (BEAKER) (test code = 354) CREATININE (BEAKER) 0.72 mg/dL 0.57-1.25 (test code = 358) GLUCOSE RANDOM 92 mg/dL 70-105 (BEAKER) (test code = 652) CALCIUM (BEAKER) 8.5 mg/dL 8.4-10.2 (test code = 697) AST (SGOT) (BEAKER) 39 U/L 5-34 H (test code = 353) ALT (SGPT) (BEAKER) 345 U/L 6-55 H (test code = 347) EGFR (BEAKER) (test 84 mL/min/1.73 ESTIMA GREY GFR IS code = 1092) sq m NOT ACCURATE CREATININE CLEARANCE IN PREDICTING GLOMERULAR FILTRATION RATE . ESTIMATED GFR I S NOT APPLICABLE FOR DIALYSIS PATIEN TS. BLOOD GAS, [id number] 06:41:00 Test Item Value Reference Range Interpretation Comments PH ARTERIAL (BEAKER) (test code = 7.42 7.35-7.45 383) PCO2 ARTERIAL (BEAKER) (test code 32 mmHg 35-45 L = 384) PO2 ARTERIAL (BEAKER) (test code 77 mmHg 80-90 L = 385) O2 SATURATION ARTERIAL (BEAKER) 95.8 % 96.0-97.0 L (test code = 386) HCO3 ARTERIAL (BEAKER) (test code 20 mmol/L 21-29 L = 388) BASE EXCESS ARTERIAL (BEAKER) -3.5 mmol/L -2.0-3.0 L (test code = 387) PATIENT TEMPERATURE (BEAKER) 37.0 C (test code = 1818) FIO2 (BEAKER) (test code = 1819) 28.0 % RAD, CHEST, 1 VIEW, NON [id number] 04:40:00Reason for exam:->endotracheal intubationShould this be performed at the bedside?->YesFINAL REPORT RAD, CHEST, 1 VIEW, NON DEPT INDICATION: endotracheal intubation COMPARISON: Prior day's exam FINDINGS: Portable frontal view of the chest. IMPRESSION: Support Lines: Interval extubation and removal of the previously seen enteric tube. Unchanged positioning of the spinal cord stimulator leads overlying the thoracic spine.Lungs and pleura: Unchanged airspace and pleural opacities. No pneumothorax.Heart and mediastinum: Stable contours. Additional findings: Stable surgical changes of the left clavicle.. Signed: Carolynn Rodríguez Verified Date/Time: 10/13/2019 04:40:52 POCT-GLUCOSE METER 2019-10-13 00:24:00 Test Item Value Reference Range Interpretation Comments POC-GLUCOSE METER 107 mg/dL 70-110 : TESTED A T [facility] 6720 (BEAKER) (test code = [place], 1538) [id number]: [employer] Director/Techni theo ID = [id number] for Rosa alexanderDianna RAD, MANDIBLE, MIN 4 [id number] 17:22:00Reason for exam:->Liver Transplant EvaluationShould this be performed at the bedside?->YesFINAL REPORT Technique: Six views of the mandible dated 10/12/2019. HISTORY: Liver transplant evaluation. COMPARISON: None IMPRESSION: No lytic or sclerotic lesion. No displaced fracture. The temporomandibular joints are not well-visualized likely secondary to difficulty with patient positioning. No radiodense foreign body or subcutaneous emphysema. Signed: Smiley Villarreal Verified Date/Time: 10/12/2019 17:22:01 Reading Location: [facility] Reading Room POCT-GLUCOSE [id number] 12:42:00 Test Item Value Reference Range Interpretation Comments POC-GLUCOSE METER 119 mg/dL 70-110 H : TESTED A T [facility] 6720 (BEAKER) (test code = LIV Dozier [facility], 1538) [id number]: [employer] Director/Techni theo ID = [id number] for Tyler del toro RAD, CHEST, 1 VIEW, NON [id number] 09:14:00Reason for exam:->endotracheal intubationShould this be performed at the bedside?->YesFINAL REPORT RAD, CHEST, 1 VIEW, NON DEPT INDICATION: endotracheal intubation COMPARISON: Prior day's exam FINDINGS: Portable frontal view of the chest. IMPRESSION: Limited by underpenetration.Support Lines: Stable. Lungs and pleura: Coarsened interstitial markings unchanged from the prior examination. No new consolidation or effusion. No pneumothorax.Heart and mediastinum: Stable contours. Stable positioning of spinal stimulator hardware.Additional findings: None. Signed: JR Gramajo Robert MDReport Verified Date/Time: 10/12/2019 09:14:48 Reading Location: [facility] Radiology Reading Room MAGNESIUM 2019-10-12 04:39:00 Test Item Value Reference Range Interpretation Comments MAGNESIUM (BEAKER) (test code = 1.8 mg/dL 1.6-2.6 627) COMPREHENSIVE METABOLIC [id number] 04:39:00 Test Item Value Reference Range Interpretation Comments TOTAL PROTEIN 5.1 gm/dL 6.0-8.3 L (BEAKER) (test code = 770) ALBUMIN (BEAKER) 2.8 g/dL 3.5-5.0 L (test code = 1145) ALKALINE PHOSPHATASE 138 U/L 40-150 (BEAKER) (test code = 346) BILIRUBIN TOTAL 0.8 mg/dL 0.2-1.2 (BEAKER) (test code = 377) SODIUM (BEAKER) (test 143 meq/L 136-145 code = 381) POTASSIUM (BEAKER) 3.6 meq/L 3.5-5.1 (test code = 379) CHLORIDE (BEAKER) 117 meq/L 98-107 H (test code = 382) CO2 (BEAKER) (test 22 meq/L 22-29 code = 355) BLOOD UREA NITROGEN 23 mg/dL 7-21 H (BEAKER) (test code = 354) CREATININE (BEAKER) 0.80 mg/dL 0.57-1.25 (test code = 358) GLUCOSE RANDOM 117 mg/dL 70-105 H (BEAKER) (test code = 652) CALCIUM (BEAKER) 8.2 mg/dL 8.4-10.2 L (test code = 697) AST (SGOT) (BEAKER) 48 U/L 5-34 H (test code = 353) ALT (SGPT) (BEAKER) 429 U/L 6-55 H (test code = 347) EGFR (BEAKER) (test 74 mL/min/1.73 ESTIMA GREY GFR IS code = 1092) sq m NOT ACCURATE CREATININE CLEARANCE IN PREDICTING GLOMERULAR FILTRATION RATE . ESTIMATED GFR I S NOT APPLICABLE FOR DIALYSIS PATIEN TS. CBC W/PLT COUNT & AUTO [id number] 04:18:00 Test Item Value Reference Range Interpretation Comments WHITE BLOOD CELL COUNT (BEAKER) 14.5 K/ L 3.5-10.5 H (test code = 775) RED BLOOD CELL COUNT (BEAKER) 3.12 M/ L 3.93-5.22 L (test code = 761) HEMOGLOBIN (BEAKER) (test code = 8.0 GM/DL 11.2-15.7 L 410) HEMATOCRIT (BEAKER) (test code = 26.0 % 34.1-44.9 L 411) MEAN CORPUSCULAR VOLUME (BEAKER) 83.3 fL 79.4-94.8 (test code = 753) MEAN CORPUSCULAR HEMOGLOBIN 25.6 pg 25.6-32.2 (BEAKER) (test code = 751) MEAN CORPUSCULAR HEMOGLOBIN CONC 30.8 GM/DL 32.2-35.5 L (BEAKER) (test code = 752) RED CELL DISTRIBUTION WIDTH 20.3 % 11.7-14.4 H (BEAKER) (test code = 412) PLATELET COUNT (BEAKER) (test 158 K/CU MM 150-450 code = 756) MEAN PLATELET VOLUME (BEAKER) 10.7 fL 9.4-12.3 (test code = 754) NUCLEATED RED BLOOD CELLS 0 /100 WBC 0-0 (BEAKER) (test code = 413) NEUTROPHILS RELATIVE PERCENT 69 % (BEAKER) (test code = 429) LYMPHOCYTES RELATIVE PERCENT 19 % (BEAKER) (test code = 430) MONOCYTES RELATIVE PERCENT 7 % (BEAKER) (test code = 431) EOSINOPHILS RELATIVE PERCENT 4 % (BEAKER) (test code = 432) BASOPHILS RELATIVE PERCENT 0 % (BEAKER) (test code = 437) NEUTROPHILS ABSOLUTE COUNT 10.05 K/ L 1.56-6.13 H (BEAKER) (test code = 670) LYMPHOCYTES ABSOLUTE COUNT 2.73 K/ L 1.18-3.74 (BEAKER) (test code = 414) MONOCYTES ABSOLUTE COUNT (BEAKER) 0.95 K/ L 0.24-0.36 H (test code = 415) EOSINOPHILS ABSOLUTE COUNT 0.55 K/ L 0.04-0.36 H (BEAKER) (test code = 416) BASOPHILS ABSOLUTE COUNT (BEAKER) 0.03 K/ L 0.01-0.08 (test code = 417) IMMATURE GRANULOCYTES-RELATIVE 1 % 0-1 PERCENT (BEAKER) (test code = 2801) BLOOD GAS, [id number] 04:17:00 Test Item Value Reference Range Interpretation Comments PH ARTERIAL (BEAKER) (test code = 7.38 7.35-7.45 383) PCO2 ARTERIAL (BEAKER) (test code 38 mmHg 35-45 = 384) PO2 ARTERIAL (BEAKER) (test code 95 mmHg 80-90 H = 385) O2 SATURATION ARTERIAL (BEAKER) 96.9 % 96.0-97.0 (test code = 386) HCO3 ARTERIAL (BEAKER) (test code 22 mmol/L 21-29 = 388) BASE EXCESS ARTERIAL (BEAKER) -2.8 mmol/L -2.0-3.0 L (test code = 387) PATIENT TEMPERATURE (BEAKER) 37.6 C (test code = 1818) FIO2 (BEAKER) (test code = 1819) 30.0 % SPIN/CONCENTRATION [id number] 01:15:00 Test Item Value Reference Range Interpretation Comments CONCENTRATION CHARGED (BEAKER) (test Done code = 2657) BODY FLUID CELL COUNT WITH [id number] 18:00:00 Test Item Value Reference Range Interpretation Comments APPEARANCE FLUID (BEAKER) (test Hazy Clear A code = 510) COLOR FLUID (BEAKER) (test code White Colorless, Straw A = 511) RBC FLUID (BEAKER) (test code = 480 /cu mm <=1 H 513) ADJUSTED WBC FLUID (BEAKER) 1165 /cu mm <=5 H (test code = 1691) LINING CELLS (BEAKER) (test code 35 /cu mm <=1 H = 1590) NEUTROPHILS FLUID (BEAKER) (test 16 % code = 1656) LYMPHS FLUID (BEAKER) (test code 4 % = 488) MONO/MACROPHAGE FLUID (BEAKER) 78 % (test code = 489) EOSINOPHILS FLUID (BEAKER) (test 2 % code = 491) BASO FLUID (BEAKER) (test code = 0 % 492) CONTAINER BODY FLUID (BEAKER) EDTA Tube (test code = 2873) EEG AWAKE AND [id number] 17:00:00Reason for exam:->acute encephalopathyShould this be performed at the bedside?->YesDate(s) of EE10/11/2019 DATE OF REPORT: 10/11/2019ACC: [id number] Number: [id number] Location: Inpatient ICUStart time: 10/11/2019 16:09Stop time: 10/11/2019 16:31ICD-10: R41.82 CPT Code: 79571 HISTORY: 54 y.o. female with hypertension, chronic back pain, who presented with acute [...] I agree with the details of this report.Jermaine Walton MD, PhDAttending NeurophysiologistCHI [place], [place] SPUTUM CULTURE + GRAM [id number] 15:43:00 Test Item Value Reference Range Interpretation Comments CULTURE (BEAKER) 4+ Normal respiratory (test code = 1095) candy present GRAM STAIN RESULT 2+ White blood cells (BEAKER) (test code = seen 1123) GRAM STAIN RESULT 0-5 epithelial cells (BEAKER) (test code = 72220) GRAM STAIN RESULT 1+ gram positive rods (BEAKER) (test code = 38589) GRAM STAIN RESULT <1+ yeast (BEAKER) (test code = 060516) MISCELLANEOUS LAB [id number] 08:34:00 Test Item Value Reference Range Interpretation Comments SCAN RESULT (test code = 2940058) RAD, CHEST, 1 VIEW, NON [id number] 07:51:00Reason for exam:->endotracheal intubationShould this be performed at the bedside?->YesFINAL REPORT RAD, CHEST, 1 VIEW, NON DEPT INDICATION: endotracheal intubation COMPARISON: Prior day's exam FINDINGS: Portable frontal [...] MDReport Verified Date/Time: 10/11/2019 07:51:10 Reading Location: [facility] Radiology Reading Room BLOOD [id number] 07:00:00 Test Item Value Reference Range Interpretation Comments CULTURE (BEAKER) (test No growth in 5 days code = 1095) BLOOD [id number] 07:00:00 Test Item Value Reference Range Interpretation Comments CULTURE (BEAKER) (test No growth in 5 days code = 1095) POCT-GLUCOSE [id number] 05:51:00 Test Item Value Reference Range Interpretation Comments POC-GLUCOSE METER 103 mg/dL 70-110 : TESTED A T [facility] 6720 (BEAKER) (test code = [facility], 1538) [id number]: [employer] Director/Techni theo ID = [id number] for SHARI BAJWA BLOOD GAS, [id number] 04:55:00 Test Item Value Reference Range Interpretation Comments PH ARTERIAL (BEAKER) (test code = 7.36 7.35-7.45 383) PCO2 ARTERIAL (BEAKER) (test code 38 mmHg 35-45 = 384) PO2 ARTERIAL (BEAKER) (test code 108 mmHg 80-90 H = 385) O2 SATURATION ARTERIAL (BEAKER) 97.8 % 96.0-97.0 H (test code = 386) HCO3 ARTERIAL (BEAKER) (test code 21 mmol/L 21-29 = 388) BASE EXCESS ARTERIAL (BEAKER) -3.9 mmol/L -2.0-3.0 L (test code = 387) PATIENT TEMPERATURE (BEAKER) 37.0 C (test code = 1818) FIO2 (BEAKER) (test code = 1819) 40.0 % [id number] 04:46:00 Test Item Value Reference Range Interpretation Comments MAGNESIUM (BEAKER) (test code = 2.2 mg/dL 1.6-2.6 627) COMPREHENSIVE METABOLIC [id number] 04:46:00 Test Item Value Reference Range Interpretation Comments TOTAL PROTEIN 5.1 gm/dL 6.0-8.3 L (BEAKER) (test code = 770) ALBUMIN (BEAKER) 3.0 g/dL 3.5-5.0 L (test code = 1145) ALKALINE PHOSPHATASE 155 U/L 40-150 H (BEAKER) (test code = 346) BILIRUBIN TOTAL 0.9 mg/dL 0.2-1.2 (BEAKER) (test code = 377) SODIUM (BEAKER) (test 142 meq/L 136-145 code = 381) POTASSIUM (BEAKER) 4.1 meq/L 3.5-5.1 (test code = 379) CHLORIDE (BEAKER) 116 meq/L 98-107 H (test code = 382) CO2 (BEAKER) (test 23 meq/L 22-29 code = 355) BLOOD UREA NITROGEN 28 mg/dL 7-21 H (BEAKER) (test code = 354) CREATININE (BEAKER) 0.89 mg/dL 0.57-1.25 (test code = 358) GLUCOSE RANDOM 130 mg/dL 70-105 H (BEAKER) (test code = 652) CALCIUM (BEAKER) 8.1 mg/dL 8.4-10.2 L (test code = 697) AST (SGOT) (BEAKER) 65 U/L 5-34 H (test code = 353) ALT (SGPT) (BEAKER) 635 U/L 6-55 H (test code = 347) EGFR (BEAKER) (test 66 mL/min/1.73 ESTIMA GREY GFR IS code = 1092) sq m NOT ACCURATE CREATININE CLEARANCE IN PREDICTING GLOMERULAR FILTRATION RATE . ESTIMATED GFR I S NOT APPLICABLE FOR DIALYSIS PATIEN TS. CBC W/PLT COUNT & AUTO [id number] 04:11:00 Test Item Value Reference Range Interpretation Comments WHITE BLOOD CELL COUNT (BEAKER) 15.9 K/ L 3.5-10.5 H (test code = 775) RED BLOOD CELL COUNT (BEAKER) 3.11 M/ L 3.93-5.22 L (test code = 761) HEMOGLOBIN (BEAKER) (test code = 8.1 GM/DL 11.2-15.7 L 410) HEMATOCRIT (BEAKER) (test code = 26.0 % 34.1-44.9 L 411) MEAN CORPUSCULAR VOLUME (BEAKER) 83.6 fL 79.4-94.8 (test code = 753) MEAN CORPUSCULAR HEMOGLOBIN 26.0 pg 25.6-32.2 (BEAKER) (test code = 751) MEAN CORPUSCULAR HEMOGLOBIN CONC 31.2 GM/DL 32.2-35.5 L (BEAKER) (test code = 752) RED CELL DISTRIBUTION WIDTH 20.2 % 11.7-14.4 H (BEAKER) (test code = 412) PLATELET COUNT (BEAKER) (test 123 K/CU MM 150-450 L code = 756) MEAN PLATELET VOLUME (BEAKER) 11.1 fL 9.4-12.3 (test code = 754) NUCLEATED RED BLOOD CELLS 0 /100 WBC 0-0 (BEAKER) (test code = 413) NEUTROPHILS RELATIVE PERCENT 74 % (BEAKER) (test code = 429) LYMPHOCYTES RELATIVE PERCENT 14 % (BEAKER) (test code = 430) MONOCYTES RELATIVE PERCENT 6 % (BEAKER) (test code = 431) EOSINOPHILS RELATIVE PERCENT 4 % (BEAKER) (test code = 432) BASOPHILS RELATIVE PERCENT 0 % (BEAKER) (test code = 437) NEUTROPHILS ABSOLUTE COUNT 11.80 K/ L 1.56-6.13 H (BEAKER) (test code = 670) LYMPHOCYTES ABSOLUTE COUNT 2.17 K/ L 1.18-3.74 (BEAKER) (test code = 414) MONOCYTES ABSOLUTE COUNT (BEAKER) 0.98 K/ L 0.24-0.36 H (test code = 415) EOSINOPHILS ABSOLUTE COUNT 0.66 K/ L 0.04-0.36 H (BEAKER) (test code = 416) BASOPHILS ABSOLUTE COUNT (BEAKER) 0.04 K/ L 0.01-0.08 (test code = 417) IMMATURE GRANULOCYTES-RELATIVE 2 % 0-1 H PERCENT (BEAKER) (test code = 2801) POCT-GLUCOSE [id number] 23:55:00 Test Item Value Reference Range Interpretation Comments POC-GLUCOSE METER 118 mg/dL 70-110 H : TESTED A T [facility] 6720 (BEAKER) (test code = [facility], 1538) [id number]: [employer] Director/Techni theo ID = [id number] for SHARI BAJWA POCT-GLUCOSE [id number] 17:40:00 Test Item Value Reference Range Interpretation Comments POC-GLUCOSE METER 142 mg/dL 70-110 H : TESTED A T [facility] 6720 (JASON) (test code = [facility], 1538) [id number]: [employer] Director/Techni theo ID = [id number] for Gr Jackie yoonara POCT-GLUCOSE [id number] 12:30:00 Test Item Value Reference Range Interpretation Comments POC-GLUCOSE METER 114 mg/dL 70-110 H : TESTED A T [facility] 6720 (JASON) (test code = [facility], 1538) [id number]: [employer] Director/Techni theo ID = [id number] for Kirt yoon, Karely HIV-1 PCR, [id number] 11:07:00 Test Item Value Reference Range Interpretation Comments HIV-1 RESULT HIV RNA not detected HIV RNA not detected COMPONENT (JASON) (test code = 2703) This test uses a Real-Time Polymerase Chain Reaction (RT-PCR) methodology to detect a highly conserved region of the HIV-1 gag gene and was performed using the CHRISTINA AmpliPrep/CHRISTINA TaqMan HIV-1 test kit version 2.0 ([employer]Reportable range for this assay is 20 - 10,000,000 copies per mL (1.3 - 7.0 Log copies/mL).[id number] 08:14:00 Test Item Value Reference Range Interpretation Comments T3 TOTAL (JASON) (test code = 656) 36 ng/dL 48-159 L RAD, CHEST, 1 VIEW, NON [id number] 07:15:00Reason for exam:->endotracheal intubationShould this be performed at the bedside?->YesFINAL REPORT RAD, CHEST, 1 VIEW, NON DEPT INDICATION: endotracheal intubation COMPARISON: Prior day's exam FINDINGS: Portable frontal view of the chest. IMPRESSION: Limited by underpenetration.Support Lines: Stable. Lungs and pleura: Coarsened interstitial markings unchanged from prior. No new consolidation or effusion. No pneumothorax.Heart and mediastinum: Stable contours. Additional findings: None. Signed: JR Rox, Tyler Spangler Verified Date/Time: 10/10/2019 07:15:28 [facility] POCT- GLUCOSE [id number] 06:26:00 Test Item Value Reference Range Interpretation Comments POC-GLUCOSE METER 103 mg/dL 70-110 : TESTED A T [facility] 6720 (BEAKER) (test code = [facility] [place], 1538) [id number]: [employer] Director/Techni theo ID = [id number] for SUSIE TRUONG [id number] 05:32:00 Test Item Value Reference Range Interpretation Comments D-DIMER QUANTITATIVE (BEAKER) > MG/L FEU <0.50 H (test code = 671) Intended Use: The D-Dimer Assay can be used to aid in the diagnosis of Deep Vein Thrombosis (DVT) and Pulmonary Embolism Disease (PED).In patients with low pre- test probability, various studies concerning STA Liatest D-dimer test have reported that with a cutoff value of 0.50 MG/L FEU, the Negative Predictive Value (NPV) regarding the exclusion of thrombosis is within 95-100% range.CBC W/PLT COUNT & AUTO [id number] 05:23:00 Test Item Value Reference Range Interpretation Comments WHITE BLOOD CELL COUNT (BEAKER) 16.4 K/ L 3.5-10.5 H (test code = 775) RED BLOOD CELL COUNT (BEAKER) 3.11 M/ L 3.93-5.22 L (test code = 761) HEMOGLOBIN (BEAKER) (test code = 8.1 GM/DL 11.2-15.7 L 410) HEMATOCRIT (BEAKER) (test code = 25.2 % 34.1-44.9 L 411) MEAN CORPUSCULAR VOLUME (BEAKER) 81.0 fL 79.4-94.8 (test code = 753) MEAN CORPUSCULAR HEMOGLOBIN 26.0 pg 25.6-32.2 (BEAKER) (test code = 751) MEAN CORPUSCULAR HEMOGLOBIN CONC 32.1 GM/DL 32.2-35.5 L (BEAKER) (test code = 752) RED CELL DISTRIBUTION WIDTH 19.7 % 11.7-14.4 H (BEAKER) (test code = 412) PLATELET COUNT (BEAKER) (test 120 K/CU MM 150-450 L code = 756) MEAN PLATELET VOLUME (BEAKER) 11.5 fL 9.4-12.3 (test code = 754) NUCLEATED RED BLOOD CELLS 0 /100 WBC 0-0 (BEAKER) (test code = 413) NEUTROPHILS RELATIVE PERCENT 71 % (BEAKER) (test code = 429) LYMPHOCYTES RELATIVE PERCENT 15 % (BEAKER) (test code = 430) MONOCYTES RELATIVE PERCENT 7 % (BEAKER) (test code = 431) EOSINOPHILS RELATIVE PERCENT 5 % (BEAKER) (test code = 432) BASOPHILS RELATIVE PERCENT 0 % (BEAKER) (test code = 437) NEUTROPHILS ABSOLUTE COUNT 11.73 K/ L 1.56-6.13 H (BEAKER) (test code = 670) LYMPHOCYTES ABSOLUTE COUNT 2.52 K/ L 1.18-3.74 (BEAKER) (test code = 414) MONOCYTES ABSOLUTE COUNT (BEAKER) 1.19 K/ L 0.24-0.36 H (test code = 415) EOSINOPHILS ABSOLUTE COUNT 0.75 K/ L 0.04-0.36 H (BEAKER) (test code = 416) BASOPHILS ABSOLUTE COUNT (BEAKER) 0.05 K/ L 0.01-0.08 (test code = 417) IMMATURE GRANULOCYTES-RELATIVE 1 % 0-1 PERCENT (BEAKER) (test code = 2801) [id number] 05:10:00 Test Item Value Reference Range Interpretation Comments PROTIME (BEAKER) (test code = 17.9 seconds 11.9-14.2 H 759) INR (BEAKER) (test code = 370) 1.6 <=5.9 PARTIAL THROMBOPLASTIN TIME 37.8 seconds 22.5-36.0 H (BEAKER) (test code = 760) Effective 04/25/2019: PT Reference Range ChangeNew: 11.9-14.2 Previous: 11.7- 14.7RECOMMENDED COUMADIN/WARFARIN INR THERAPY RANGESSTANDARD DOSE: 2.0-3.0 Includes: PROPHYLAXIS for venous thrombosis, systemic embolization; TREATMENT for venous thrombosis and/or pulmonary embolus.HIGH RISK: Target INR is2.5-3.5 for patients wiht mechanical heart valves.[id number] 05:10:00 Test Item Value Reference Range Interpretation Comments PHOSPHORUS (BEAKER) (test code = 3.3 mg/dL 2.3-4.7 604) [id number] 05:10:00 Test Item Value Reference Range Interpretation Comments MAGNESIUM (BEAKER) (test code = 2.3 mg/dL 1.6-2.6 627) COMPREHENSIVE METABOLIC [id number] 05:10:00 Test Item Value Reference Range Interpretation Comments TOTAL PROTEIN 5.0 gm/dL 6.0-8.3 L (BEAKER) (test code = 770) ALBUMIN (BEAKER) 3.0 g/dL 3.5-5.0 L (test code = 1145) ALKALINE PHOSPHATASE 161 U/L 40-150 H (BEAKER) (test code = 346) BILIRUBIN TOTAL 1.6 mg/dL 0.2-1.2 H (BEAKER) (test code = 377) SODIUM (BEAKER) (test 145 meq/L 136-145 code = 381) POTASSIUM (BEAKER) 3.7 meq/L 3.5-5.1 (test code = 379) CHLORIDE (BEAKER) 114 meq/L 98-107 H (test code = 382) CO2 (BEAKER) (test 25 meq/L 22-29 code = 355) BLOOD UREA NITROGEN 26 mg/dL 7-21 H (BEAKER) (test code = 354) CREATININE (BEAKER) 0.87 mg/dL 0.57-1.25 (test code = 358) GLUCOSE RANDOM 99 mg/dL 70-105 (BEAKER) (test code = 652) CALCIUM (BEAKER) 8.6 mg/dL 8.4-10.2 (test code = 697) AST (SGOT) (BEAKER) 91 U/L 5-34 H (test code = 353) ALT (SGPT) (BEAKER) 945 U/L 6-55 H (test code = 347) EGFR (BEAKER) (test 68 mL/min/1.73 ESTIMA GREY GFR IS code = 1092) sq m NOT ACCURATE CREATININE CLEARANCE IN PREDICTING GLOMERULAR FILTRATION RATE . ESTIMATED GFR I S NOT APPLICABLE FOR DIALYSIS PATIEN TS. [id number] 05:08:00 Test Item Value Reference Range Interpretation Comments FIBRINOGEN LEVEL (BEAKER) (test 275 mg/dl 225-434 code = 658) PROTHROMBIN [id number] 05:07:00 Test Item Value Reference Range Interpretation Comments PROTIME (BEAKER) (test code = 17.9 seconds 11.9-14.2 H 759) INR (BEAKER) (test code = 370) 1.6 <=5.9 Effective 04/25/2019: PT Reference Range ChangeNew: 11.9-14.2 Previous: 11.7- 14.7RECOMMENDED COUMADIN/WARFARIN INR THERAPY RANGESSTANDARD DOSE: 2.0-3.0 Includes: PROPHYLAXIS for venous thrombosis, systemic embolization; TREATMENT for venous thrombosis and/or pulmonary embolus.HIGH RISK: Target INR is2.5-3.5 for patients wiht mechanical heart valves.CALCIUM, [id number] 04:59:00 Test Item Value Reference Range Interpretation Comments CALCIUM IONIZED (BEAKER) (test 1.20 mmol/L 1.12-1.27 code = 698) PH, BLOOD (BEAKER) (test code = 7.37 1810) BLOOD GAS, [id number] 04:55:00 Test Item Value Reference Range Interpretation Comments PH ARTERIAL (BEAKER) (test code = 7.35 7.35-7.45 383) PCO2 ARTERIAL (BEAKER) (test code 43 mmHg 35-45 = 384) PO2 ARTERIAL (BEAKER) (test code 170 mmHg 80-90 H = 385) O2 SATURATION ARTERIAL (BEAKER) 99.0 % 96.0-97.0 H (test code = 386) HCO3 ARTERIAL (BEAKER) (test code 23 mmol/L 21-29 = 388) BASE EXCESS ARTERIAL (BEAKER) -1.9 mmol/L -2.0-3.0 (test code = 387) PATIENT TEMPERATURE (BEAKER) 38.0 C (test code = 1818) FIO2 (BEAKER) (test code = 1819) 40.0 % POCT-GLUCOSE [id number] 00:46:00 Test Item Value Reference Range Interpretation Comments POC-GLUCOSE METER 90 mg/dL 70-110 : TESTED A T [facility] 6720 (BEAKER) (test code = [facility] [place], 1538) [id number]: [employer] Director/Techni theo ID = [id number] for SUSIE LISA MRSA [id number] 19:33:00 Test Item Value Reference Range Interpretation Comments CULTURE (BEAKER) (test code No MRSA isolated = 1095) PROTHROMBIN [id number] 18:00:00 Test Item Value Reference Range Interpretation Comments PROTIME (BEAKER) (test code = 19.8 seconds 11.9-14.2 H 759) INR (BEAKER) (test code = 370) 1.8 <=5.9 Effective 04/25/2019: PT Reference Range ChangeNew: 11.9-14.2 Previous: 11.7- 14.7RECOMMENDED COUMADIN/WARFARIN INR THERAPY RANGESSTANDARD DOSE: 2.0-3.0 Includes: PROPHYLAXIS for venous thrombosis, systemic embolization; TREATMENT for venous thrombosis and/or pulmonary embolus.HIGH RISK: Target INR is2.5-3.5 for patients wiht mechanical heart valves.[id number] 18:00:00 Test Item Value Reference Range Interpretation Comments PROTIME (BEAKER) (test code = 19.8 seconds 11.9-14.2 H 759) INR (BEAKER) (test code = 370) 1.8 <=5.9 PARTIAL THROMBOPLASTIN TIME 41.0 seconds 22.5-36.0 H (BEAKER) (test code = 760) Effective 04/25/2019: PT Reference Range ChangeNew: 11.9-14.2 Previous: 11.7- 14.7RECOMMENDED COUMADIN/WARFARIN INR THERAPY RANGESSTANDARD DOSE: 2.0-3.0 Includes: PROPHYLAXIS for venous thrombosis, systemic embolization; TREATMENT for venous thrombosis and/or pulmonary embolus.HIGH RISK: Target INR is2.5-3.5 for patients wiht mechanical heart valves.[id number] 17:55:00 Test Item Value Reference Range Interpretation Comments MAGNESIUM (BEAKER) (test code = 1.9 mg/dL 1.6-2.6 627) BASIC METABOLIC [id number] 17:55:00 Test Item Value Reference Range Interpretation Comments SODIUM (BEAKER) 142 meq/L 136-145 (test code = 381) POTASSIUM (BEAKER) 3.8 meq/L 3.5-5.1 (test code = 379) CHLORIDE (BEAKER) 112 meq/L 98-107 H (test code = 382) CO2 (BEAKER) (test 23 meq/L 22-29 code = 355) BLOOD UREA NITROGEN 23 mg/dL 7-21 H (BEAKER) (test code = 354) CREATININE (BEAKER) 0.94 mg/dL 0.57-1.25 (test code = 358) GLUCOSE RANDOM 120 mg/dL 70-105 H (BEAKER) (test code = 652) CALCIUM (BEAKER) 8.3 mg/dL 8.4-10.2 L (test code = 697) EGFR (BEAKER) (test 62 mL/min/1.73 ESTIMA GREY GFR IS code = 1092) sq m NOT ACCURATE CREATININE CLEARANCE IN PREDICTING GLOMERULAR FILTRATION RATE . ESTIMATED GFR I S NOT APPLICABLE FOR DIALYSIS PATIEN TS. CYTOMEGALOVIRUS ANTIBODY, [id number] 16:41:00 Test Item Value Reference Range Interpretation Comments CYTOMEGALOVIRUS, IGG (BEAKER) Negative Negative, Equivocal (test code = 3429) CMV IgG Result Interpretation: </= 0.8 Al Negative 0.9-1.0 Al Equivocal >/=1.1 Al PositiveCYTOMEGALOVIRUS ANTIBODY, [id number] 16:41:00 Test Item Value Reference Range Interpretation Comments CYTOMEGALOVIRUS IGM ANTIBODY Negative Negative, Equivocal (BEAKER) (test code = 3437) CMV IgM Result Interpretation: </= 0.8 Al Negative 0.9-1.0 Al Equivocal >/= 1.1 Al PositiveEBV ANTIBODY, [id number] 16:41:00 Test Item Value Reference Range Interpretation Comments JAMA BELTRAN VIRAL CAPSID Positive Negative, Equivocal A ANTIGEN IGG (BEAKER) (test code = 3415) Jama Beltran Viral Capsid Antigen IgG Result Interpretation: </= 0.8 Al Negative 0.9-1.0 Al Equivocal >/= 1.1 Al PositiveEBV ANTIBODY, IGM 2019-10-09 16:41:00 Test Item Value Reference Range Interpretation Comments JAMA BELTRAN VIRAL CAPSID Positive Negative, Equivocal A ANTIGEN IGM (BEAKER) (test code = 3418) Jama Beltran Viral Capsid Antigen IgM Result Interpretation: </= 0.8 Al Negative 0.9-1.0 Al Equivocal >/= 1.1 Al PositivePOCT-GLUCOSE METER 2019-10-09 16:15:00 Test Item Value Reference Range Interpretation Comments POC-GLUCOSE METER 107 mg/dL 70-110 : TESTED A T [facility] 6720 (BEAKER) (test code = [facility] [place], 1538) [id number]: [employer] Director/Techni hteo ID = [id number] for Gr Karely yoon CT, BRAIN, WITHOUT [id number] 14:07:00Patient with decerebrate posturing, r/o herniationFINAL REPORT CT, BRAIN, WITHOUT CONTRAST [...] examination is recommended for further characterization. Signed: Shari Perry [facility] Verified Date/Time: 10/09/2019 14:07:57 SPUTUM CULTURE + GRAM [id number] 12:59:00 Test Item Value Reference Range Interpretation Comments CULTURE (BEAKER) See comment (test code = 1095) GRAM STAIN RESULT 1+ White blood cells (BEAKER) (test code = seen 1123) GRAM STAIN RESULT 0-5 epithelial cells (BEAKER) (test code = 050199) GRAM STAIN RESULT No organisms seen (BEAKER) (test code = 908985) 2+ YeastNo Normal respiratory candy presentPOCT-GLUCOSE [id number] 12:22:00 Test Item Value Reference Range Interpretation Comments POC-GLUCOSE METER 168 mg/dL 70-110 H : TESTED A T [facility] 6720 (BEAKER) (test code = [facility] [place], 1538) [id number]: [employer] Director/Techni theo ID = [id number] for Gr ant, Tieara POCT-GLUCOSE [id number] 10:04:00 Test Item Value Reference Range Interpretation Comments POC-GLUCOSE METER 101 mg/dL 70-110 : TESTED A T [facility] 6720 (BEAKER) (test code = [facility] [place], 1538) [id number]: [employer] Director/Techni theo ID = [id number] for Gr ant, Jackieara BILIRUBIN, [id number] 09:44:00 Test Item Value Reference Range Interpretation Comments BILIRUBIN DIRECT (BEAKER) (test 1.5 mg/dL 0.1-0.5 H code = 706) [id number] 07:19:00 Test Item Value Reference Range Interpretation Comments PROCALCITONIN (BEAKER) (test code 1.48 ng/mL <0.05 H = 3036) SEPSIS RISK (ng/mL)Low: 0.05-0.50Intermediate: 0.51-2.00High: >=2.09L-[id number] 05:26:00 Test Item Value Reference Range Interpretation Comments D-DIMER QUANTITATIVE (BEAKER) > MG/L FEU <0.50 H (test code = 671) Intended Use: The D-Dimer Assay can be used to aid in the diagnosis of Deep Vein Thrombosis (DVT) and Pulmonary Embolism Disease (PED).In patients with low pre- test probability, various studies concerning STA Liatest D-dimer test have reported that with a cutoff value of 0.50 MG/L FEU, the Negative Predictive Value (NPV) regarding the exclusion of thrombosis is within 95-100% range.RAD, CHEST, 1 VIEW, NON [id number] 05:16:00Reason for exam:->endotracheal intubationShould this be performed at the bedside?->YesFINAL REPORT RAD, CHEST, 1 VIEW, NON DEPT INDICATION: endotracheal intubation COMPARISON: Exam from 19 hours prior FINDINGS: Portable [...] Cummins MDReport Verified Date/Time: 10/09/2019 05:16:08 CALCIUM, [id number] 05:05:00 Test Item Value Reference Range Interpretation Comments CALCIUM IONIZED (BEAKER) (test 1.14 mmol/L 1.12-1.27 code = 698) PH, BLOOD (BEAKER) (test code = 7.49 1810) BLOOD GAS, [id number] 05:04:00 Test Item Value Reference Range Interpretation Comments PH ARTERIAL (BEAKER) (test code = 7.49 7.35-7.45 H 383) PCO2 ARTERIAL (BEAKER) (test code 29 mmHg 35-45 L = 384) PO2 ARTERIAL (BEAKER) (test code 213 mmHg 80-90 H = 385) O2 SATURATION ARTERIAL (BEAKER) 99.5 % 96.0-97.0 H (test code = 386) HCO3 ARTERIAL (BEAKER) (test code 21 mmol/L 21-29 = 388) BASE EXCESS ARTERIAL (BEAKER) -1.4 mmol/L -2.0-3.0 (test code = 387) PATIENT TEMPERATURE (BEAKER) 37.0 C (test code = 1818) FIO2 (BEAKER) (test code = 1819) 40.0 % CBC W/PLT COUNT & AUTO [id number] 04:51:00 Test Item Value Reference Range Interpretation Comments WHITE BLOOD CELL COUNT 21.2 K/ L 3.5-10.5 H (BEAKER) (test code = 775) RED BLOOD CELL COUNT 3.23 M/ L 3.93-5.22 L (BEAKER) (test code = 761) HEMOGLOBIN (BEAKER) 8.4 GM/DL 11.2-15.7 L (test code = 410) HEMATOCRIT (BEAKER) 25.5 % 34.1-44.9 L (test code = 411) MEAN CORPUSCULAR 78.9 fL 79.4-94.8 L Discordant MCV VOLUME (BEAKER) (test result s compared to code = 753) previous result s; clinical correl ation required. MEAN CORPUSCULAR 26.0 pg 25.6-32.2 HEMOGLOBIN (BEAKER) (test code = 751) MEAN CORPUSCULAR 32.9 GM/DL 32.2-35.5 HEMOGLOBIN CONC (BEAKER) (test code = 752) RED CELL DISTRIBUTION 18.5 % 11.7-14.4 H WIDTH (BEAKER) (test code = 412) PLATELET COUNT 96 K/CU MM 150-450 L (BEAKER) (test code = 756) MEAN PLATELET VOLUME 11.0 fL 9.4-12.3 (BEAKER) (test code = 754) NUCLEATED RED BLOOD 0 /100 WBC 0-0 CELLS (BEAKER) (test code = 413) NEUTROPHILS RELATIVE 80 % PERCENT (BEAKER) (test code = 429) LYMPHOCYTES RELATIVE 10 % PERCENT (BEAKER) (test code = 430) MONOCYTES RELATIVE 6 % PERCENT (BEAKER) (test code = 431) EOSINOPHILS RELATIVE 2 % PERCENT (BEAKER) (test code = 432) BASOPHILS RELATIVE 0 % PERCENT (BEAKER) (test code = 437) NEUTROPHILS ABSOLUTE 16.98 K/ L 1.56-6.13 H COUNT (BEAKER) (test code = 670) LYMPHOCYTES ABSOLUTE 2.20 K/ L 1.18-3.74 COUNT (BEAKER) (test code = 414) MONOCYTES ABSOLUTE 1.24 K/ L 0.24-0.36 H COUNT (BEAKER) (test code = 415) EOSINOPHILS ABSOLUTE 0.39 K/ L 0.04-0.36 H COUNT (BEAKER) (test code = 416) BASOPHILS ABSOLUTE 0.04 K/ L 0.01-0.08 COUNT (BEAKER) (test code = 417) IMMATURE 2 % 0-1 H GRANULOCYTES-RELATIVE PERCENT (BEAKER) (test code = 2801) VANCOMYCIN LEVEL, [id number] 04:26:00 Test Item Value Reference Range Interpretation Comments VANCOMYCIN TROUGH (BEAKER) (test 7.0 ug/mL 10.0-20.0 L code = 522) [id number] 04:21:00 Test Item Value Reference Range Interpretation Comments PHOSPHORUS (BEAKER) (test code = 3.2 mg/dL 2.3-4.7 604) [id number] 04:21:00 Test Item Value Reference Range Interpretation Comments MAGNESIUM (BEAKER) (test code = 1.9 mg/dL 1.6-2.6 627) COMPREHENSIVE METABOLIC [id number] 04:21:00 Test Item Value Reference Range Interpretation Comments TOTAL PROTEIN 5.0 gm/dL 6.0-8.3 L (BEAKER) (test code = 770) ALBUMIN (BEAKER) 3.1 g/dL 3.5-5.0 L (test code = 1145) ALKALINE PHOSPHATASE 192 U/L 40-150 H (BEAKER) (test code = 346) BILIRUBIN TOTAL 2.3 mg/dL 0.2-1.2 H (BEAKER) (test code = 377) SODIUM (BEAKER) (test 142 meq/L 136-145 code = 381) POTASSIUM (BEAKER) 3.8 meq/L 3.5-5.1 (test code = 379) CHLORIDE (BEAKER) 113 meq/L 98-107 H (test code = 382) CO2 (BEAKER) (test 24 meq/L 22-29 code = 355) BLOOD UREA NITROGEN 21 mg/dL 7-21 (BEAKER) (test code = 354) CREATININE (BEAKER) 0.89 mg/dL 0.57-1.25 (test code = 358) GLUCOSE RANDOM 147 mg/dL 70-105 H (BEAKER) (test code = 652) CALCIUM (BEAKER) 8.2 mg/dL 8.4-10.2 L (test code = 697) AST (SGOT) (BEAKER) 205 U/L 5-34 H (test code = 353) ALT (SGPT) (BEAKER) 1373 U/L 6-55 H (test code = 347) EGFR (BEAKER) (test 66 mL/min/1.73 ESTIMA GREY GFR IS code = 1092) sq m NOT ACCURATE CREATININE CLEARANCE IN PREDICTING GLOMERULAR FILTRATION RATE . ESTIMATED GFR I S NOT APPLICABLE FOR DIALYSIS PATIEN TS. [id number] 04:19:00 Test Item Value Reference Range Interpretation Comments FIBRINOGEN LEVEL (BEAKER) (test 267 mg/dl 225-434 code = 658) [id number] 04:14:00 Test Item Value Reference Range Interpretation Comments PROTIME (BEAKER) (test code = 21.3 seconds 11.9-14.2 H 759) INR (BEAKER) (test code = 370) 1.9 <=5.9 PARTIAL THROMBOPLASTIN TIME 36.3 seconds 22.5-36.0 H (BEAKER) (test code = 760) Effective 04/25/2019: PT Reference Range ChangeNew: 11.9-14.2 Previous: 11.7- 14.7RECOMMENDED COUMADIN/WARFARIN INR THERAPY RANGESSTANDARD DOSE: 2.0-3.0 Includes: PROPHYLAXIS for venous thrombosis, systemic embolization; TREATMENT for venous thrombosis and/or pulmonary embolus.HIGH RISK: Target INR is2.5-3.5 for patients wiht mechanical heart valves.PROTHROMBIN TIME/[id number] 04:13:00 Test Item Value Reference Range Interpretation Comments PROTIME (BEAKER) (test code = 21.3 seconds 11.9-14.2 H 759) INR (BEAKER) (test code = 370) 1.9 <=5.9 Effective 04/25/2019: PT Reference Range ChangeNew: 11.9-14.2 Previous: 11.7- 14.7RECOMMENDED COUMADIN/WARFARIN INR THERAPY RANGESSTANDARD DOSE: 2.0-3.0 Includes: PROPHYLAXIS for venous thrombosis, systemic embolization; TREATMENT for venous thrombosis and/or pulmonary embolus.HIGH RISK: Target INR is2.5-3.5 for patients wiht mechanical heart valves.POCT-GLUCOSE [id number] 01:04:00 Test Item Value Reference Range Interpretation Comments POC-GLUCOSE METER 143 mg/dL 70-110 H : TESTED A T [facility] 6720 (BEAKER) (test code = [place], 1538) [id number]: [employer] Director/Techni theo ID = [id number] for SUSIE TRUONG POCT-GLUCOSE [id number] 20:20:00 Test Item Value Reference Range Interpretation Comments POC-GLUCOSE METER 145 mg/dL 70-110 H : TESTED A T [facility] 6720 (BEAKER) (test code = [place], 1538) [id number]: [employer] Director/Techni theo ID = [id number] for SUSIE TRUONG POCT-GLUCOSE [id number] 16:43:00 Test Item Value Reference Range Interpretation Comments POC-GLUCOSE METER 164 mg/dL 70-110 H : TESTED [facility] 6720 (BEAKER) (test code = [place], 1538) [id number]: [employer] Director/Techni theo ID = [id number] for Karely Bautista CMV PCR, [id number] 15:47:00 Test Item Value Reference Range Interpretation Comments CMV VIRAL LOAD - Negative or below the NEGATIVE (BEAKER) (test linear range of the code = 2558) assay (<375 copies/mL) Cytomegalovirus (CMV) infection can [...] viral load canbe evaluated by identifying a 10-fold change, as well as assessing the CMV DNA viral load and the clinical context for each patient.The plasma CMV DNA viral load was detected using quantitative polymerase chain reaction and fluorescent monitoring of a specific hybridized probe. Genetic variation and ot her factors can affect the accuracy of nucleic acid testing. Therefore, the results should be interpreted in light of clinical data. A negative result may not exclude the presence of CMV disease.This test was developed and its performance characteristics determined by the [facility] Path ology Department, Section of Molecular Pathology. It has not been cleared or approved by the U.S. Food and Drug Administration (FDA), since FDA approval is not required for clinical use of the test. Validation was done as required by The Clinical Laboratory Improvement Amendments of 1988.[id number] 15:29:00 Test Item Value Reference Range Interpretation Comments PHOSPHORUS (BEAKER) (test code = 3.5 mg/dL 2.3-4.7 604) [id number] 15:29:00 Test Item Value Reference Range Interpretation Comments MAGNESIUM (BEAKER) (test code = 2.1 mg/dL 1.6-2.6 627) [id number] 15:01:00 Test Item Value Reference Range Interpretation Comments PHOSPHORUS (BEAKER) (test code = 2.1 mg/dL 2.3-4.7 L 604) [id number] 15:01:00 Test Item Value Reference Range Interpretation Comments MAGNESIUM (BEAKER) (test code = 2.0 mg/dL 1.6-2.6 627) BASIC METABOLIC [id number] 15:01:00 Test Item Value Reference Range Interpretation Comments SODIUM (BEAKER) 139 meq/L 136-145 (test code = 381) POTASSIUM (BEAKER) 3.6 meq/L 3.5-5.1 (test code = 379) CHLORIDE (BEAKER) 110 meq/L 98-107 H (test code = 382) CO2 (BEAKER) (test 22 meq/L 22-29 code = 355) BLOOD UREA NITROGEN 20 mg/dL 7-21 (BEAKER) (test code = 354) CREATININE (BEAKER) 0.99 mg/dL 0.57-1.25 (test code = 358) GLUCOSE RANDOM 149 mg/dL 70-105 H (BEAKER) (test code = 652) CALCIUM (BEAKER) 8.1 mg/dL 8.4-10.2 L (test code = 697) EGFR (BEAKER) (test 58 mL/min/1.73 ESTIMA GREY GFR IS code = 1092) sq m NOT ACCURATE CREATININE CLEARANCE IN PREDICTING GLOMERULAR FILTRATION RATE . ESTIMATED GFR I S NOT APPLICABLE FOR DIALYSIS PATIEN TS. Specimen slightly ictericPT/[id number] 14:53:00 Test Item Value Reference Range Interpretation Comments PROTIME (BEAKER) (test code = 22.6 seconds 11.9-14.2 H 759) INR (BEAKER) (test code = 370) 2.1 <=5.9 PARTIAL THROMBOPLASTIN TIME 33.5 seconds 22.5-36.0 (BEAKER) (test code = 760) Effective 04/25/2019: PT Reference Range ChangeNew: 11.9-14.2 Previous: 11.7- 14.7RECOMMENDED COUMADIN/WARFARIN INR THERAPY RANGESSTANDARD DOSE: 2.0-3.0 Includes: PROPHYLAXIS for venous thrombosis, systemic embolization; TREATMENT for venous thrombosis and/or pulmonary embolus.HIGH RISK: Target INR is2.5-3.5 for patients wiht mechanical heart valves.[id number] 14:38:00 Test Item Value Reference Range Interpretation Comments AMMONIA (BEAKER) (test code = 348) 34 mol/L 18-72 RUBELLA ANTIBODY, [id number] 14:20:00 Test Item Value Reference Range Interpretation Comments RUBELLA IGG QUANTITATION (BEAKER) 1.0 IU/mL <8.0 (test code = 572) Rubella IgG Result Interpretation: </= 7.0 IU/mL Negative - Presumed non- immune 8.0 - 9.9 IU/mL Equivocal >= 10.0 IU/mL Positive - Presumed immune VARICELLA ZOSTER ANTIBODY, [id number] 13:49:00 Test Item Value Reference Range Interpretation Comments VARICELLA ZOSTER IGG (AL) (BEAKER) 4.8 (test code = 3197) VARICELLA ZOSTER RESULT INTERPRETATIONS: <=0.8 Al Nonreactive: Presumed non-immune to VZV 0.9-1.0 Al Equivocal >=1.1 Al Reactive: Presumed immune to VZVCRYPTOCOCCAL [id number] 13:33:00 Test Item Value Reference Range Interpretation Comments CRYPTOCOCCAL ANTIGEN, SERUM Negative Negative, Interference (BEAKER) (test code = 1828) FACTOR 5 ACTIVITY (BLEEDING RISK)2019-10-08 13:03:00 Test Item Value Reference Range Interpretation Comments FACTOR V ACTIVITY (BEAKER) (test code = 9.0 % 60.0-150.0 L 665) CBC W/PLT COUNT & AUTO [id number] 12:13:00 Test Item Value Reference Range Interpretation Comments WHITE BLOOD CELL COUNT (BEAKER) 18.3 K/ L 3.5-10.5 H (test code = 775) RED BLOOD CELL COUNT (BEAKER) 3.29 M/ L 3.93-5.22 L (test code = 761) HEMOGLOBIN (BEAKER) (test code = 8.6 GM/DL 11.2-15.7 L 410) HEMATOCRIT (BEAKER) (test code = 28.9 % 34.1-44.9 L 411) MEAN CORPUSCULAR VOLUME (BEAKER) 87.8 fL 79.4-94.8 (test code = 753) MEAN CORPUSCULAR HEMOGLOBIN 26.1 pg 25.6-32.2 (BEAKER) (test code = 751) MEAN CORPUSCULAR HEMOGLOBIN CONC 29.8 GM/DL 32.2-35.5 L (BEAKER) (test code = 752) RED CELL DISTRIBUTION WIDTH 19.1 % 11.7-14.4 H (BEAKER) (test code = 412) PLATELET COUNT (BEAKER) (test code 84 K/CU MM 150-450 L = 756) MEAN PLATELET VOLUME (BEAKER) 10.1 fL 9.4-12.3 (test code = 754) NUCLEATED RED BLOOD CELLS (BEAKER) 0 /100 WBC 0-0 (test code = 413) NEUTROPHILS RELATIVE PERCENT 86 % (BEAKER) (test code = 429) LYMPHOCYTES RELATIVE PERCENT 7 % (BEAKER) (test code = 430) MONOCYTES RELATIVE PERCENT 5 % (BEAKER) (test code = 431) EOSINOPHILS RELATIVE PERCENT 1 % (BEAKER) (test code = 432) BASOPHILS RELATIVE PERCENT 0 % (BEAKER) (test code = 437) NEUTROPHILS ABSOLUTE COUNT 15.69 K/ L 1.56-6.13 H (BEAKER) (test code = 670) LYMPHOCYTES ABSOLUTE COUNT 1.29 K/ L 1.18-3.74 (BEAKER) (test code = 414) MONOCYTES ABSOLUTE COUNT (BEAKER) 0.87 K/ L 0.24-0.36 H (test code = 415) EOSINOPHILS ABSOLUTE COUNT 0.14 K/ L 0.04-0.36 (BEAKER) (test code = 416) BASOPHILS ABSOLUTE COUNT (BEAKER) 0.04 K/ L 0.01-0.08 (test code = 417) IMMATURE GRANULOCYTES-RELATIVE 1 % 0-1 PERCENT (BEAKER) (test code = 2801) POCT-GLUCOSE [id number] 11:22:00 Test Item Value Reference Range Interpretation Comments POC-GLUCOSE METER 184 mg/dL 70-110 H : TESTED [facility] 6720 (BEAKER) (test code = [place], 1538) [id number]: [employer] Director/Techni theo ID = [id number] for Kirt yoonKarely ANTI-NUCLEAR ANTIBODY (JOSE ARMANDO)2019-10-08 10:44:00 Test Item Value Reference Range Interpretation Comments ANTI-NUCLEAR ANTIBODY (JOSE ARMANDO) (BEAKER) Negative Negative (test code = 418) Test performed by IFA method.Test performed by IFA method.[id number] 09:26:00 Test Item Value Reference Range Interpretation Comments PHOSPHORUS (BEAKER) (test code = 2.9 mg/dL 2.3-4.7 604) [id number] 09:26:00 Test Item Value Reference Range Interpretation Comments MAGNESIUM (BEAKER) (test code = 2.0 mg/dL 1.6-2.6 627) BASIC METABOLIC [id number] 09:26:00 Test Item Value Reference Range Interpretation Comments SODIUM (BEAKER) 138 meq/L 136-145 (test code = 381) POTASSIUM (BEAKER) 3.8 meq/L 3.5-5.1 (test code = 379) CHLORIDE (BEAKER) 108 meq/L 98-107 H (test code = 382) CO2 (BEAKER) (test 22 meq/L 22-29 code = 355) BLOOD UREA NITROGEN 20 mg/dL 7-21 (BEAKER) (test code = 354) CREATININE (BEAKER) 1.07 mg/dL 0.57-1.25 (test code = 358) GLUCOSE RANDOM 164 mg/dL 70-105 H (BEAKER) (test code = 652) CALCIUM (BEAKER) 8.1 mg/dL 8.4-10.2 L (test code = 697) EGFR (BEAKER) (test 53 mL/min/1.73 ESTIMA GREY GFR IS code = 1092) sq m NOT ACCURATE CREATININE CLEARANCE IN PREDICTING GLOMERULAR FILTRATION RATE . ESTIMATED GFR I S NOT APPLICABLE FOR DIALYSIS PATIEN TS. Specimen slightly ictericRAD, CHEST, 1 VIEW, NON [id number] 09:14:00Reason for exam:->endotracheal intubationShould this be performed at the bedside?->YesFINAL REPORT RAD, CHEST, 1 VIEW, NON DEPT INDICATION: endotracheal intubationCOMPARISON: Prior day's exam FINDINGS: Portable frontal view of the chest. IMPRESSION: Support Lines: Stable. Lungs and pleura: Improved interstitial congestion. No consolidation or effusion. No pneumothorax.Heart and mediastinum: Stable contours. Additional findings: None. Signed: JR Rox, Tyler Spangler Verified Date/Time: 10/08/2019 09:14:39 Reading Location: [facility] Radiology Reading Room D-DIMER 2019-10-08 06:25:00 Test Item Value Reference Range Interpretation Comments D-DIMER QUANTITATIVE (BEAKER) > MG/L FEU <0.50 H (test code = 671) Intended Use: The D-Dimer Assay can be used to aid in the diagnosis of Deep Vein Thrombosis (DVT) and Pulmonary Embolism Disease (PED).In patients with low pre- test probability, various studies concerning STA Liatest D-dimer test have reported that with a cutoff value of 0.50 MG/L FEU, the Negative Predictive Value (NPV) regarding the exclusion of thrombosis is within 95-100% range. PROTHROMBIN TIME/[id number] 05:32:00 Test Item Value Reference Range Interpretation Comments PROTIME (BEAKER) (test code = 23.4 seconds 11.9-14.2 H 759) INR (BEAKER) (test code = 370) 2.2 <=5.9 Effective 04/25/2019: PT Reference Range ChangeNew: 11.9-14.2 Previous: 11.7- 14.7RECOMMENDED COUMADIN/WARFARIN INR THERAPY RANGESSTANDARD DOSE: 2.0-3.0 Includes: PROPHYLAXIS for venous thrombosis, systemic embolization; TREATMENT for venous thrombosis and/or pulmonary embolus.HIGH RISK: Target INR is2.5-3.5 for patients wiht mechanical heart valves.[id number] 05:32:00 Test Item Value Reference Range Interpretation Comments FIBRINOGEN LEVEL (BEAKER) (test 200 mg/dl 225-434 L code = 658) [id number] 05:32:00 Test Item Value Reference Range Interpretation Comments PROTIME (BEAKER) (test code = 23.4 seconds 11.9-14.2 H 759) INR (BEAKER) (test code = 370) 2.2 <=5.9 PARTIAL THROMBOPLASTIN TIME 35.0 seconds 22.5-36.0 (BEAKER) (test code = 760) Effective 04/25/2019: PT Reference Range ChangeNew: 11.9-14.2 Previous: 11.7- 14.7RECOMMENDED COUMADIN/WARFARIN INR THERAPY RANGESSTANDARD DOSE: 2.0-3.0 Includes: PROPHYLAXIS for venous thrombosis, systemic embolization; TREATMENT for venous thrombosis and/or pulmonary embolus.HIGH RISK: Target INR is2.5-3.5 for patients wiht mechanical heart valves.COMPREHENSIVE METABOLIC PANEL 2019-10-08 05:24:00 Test Item Value Reference Range Interpretation Comments TOTAL PROTEIN 5.1 gm/dL 6.0-8.3 L (BEAKER) (test code = 770) ALBUMIN (BEAKER) 3.3 g/dL 3.5-5.0 L (test code = 1145) ALKALINE PHOSPHATASE 193 U/L 40-150 H (BEAKER) (test code = 346) BILIRUBIN TOTAL 2.8 mg/dL 0.2-1.2 H (BEAKER) (test code = 377) SODIUM (BEAKER) (test 139 meq/L 136-145 code = 381) POTASSIUM (BEAKER) 3.6 meq/L 3.5-5.1 (test code = 379) CHLORIDE (BEAKER) 106 meq/L 98-107 (test code = 382) CO2 (BEAKER) (test 24 meq/L 22-29 code = 355) BLOOD UREA NITROGEN 21 mg/dL 7-21 (BEAKER) (test code = 354) CREATININE (BEAKER) 1.03 mg/dL 0.57-1.25 (test code = 358) GLUCOSE RANDOM 138 mg/dL 70-105 H (BEAKER) (test code = 652) CALCIUM (BEAKER) 8.2 mg/dL 8.4-10.2 L (test code = 697) AST (SGOT) (BEAKER) 609 U/L 5-34 H (test code = 353) ALT (SGPT) (BEAKER) 1911 U/L 6-55 H (test code = 347) EGFR (BEAKER) (test 56 mL/min/1.73 ESTIMA GREY GFR IS code = 1092) sq m NOT ACCURATE CREATININE CLEARANCE IN PREDICTING GLOMERULAR FILTRATION RATE . ESTIMATED GFR I S NOT APPLICABLE FOR DIALYSIS PATIEN TS. Specimen slightly ictericCBC W/PLT COUNT & AUTO [id number] 05:24:00 Test Item Value Reference Range Interpretation Comments WHITE BLOOD CELL COUNT (BEAKER) 17.8 K/ L 3.5-10.5 H (test code = 775) RED BLOOD CELL COUNT (BEAKER) 3.07 M/ L 3.93-5.22 L (test code = 761) HEMOGLOBIN (BEAKER) (test code = 8.1 GM/DL 11.2-15.7 L 410) HEMATOCRIT (BEAKER) (test code = 23.3 % 34.1-44.9 L 411) MEAN CORPUSCULAR VOLUME (BEAKER) 75.9 fL 79.4-94.8 L (test code = 753) MEAN CORPUSCULAR HEMOGLOBIN 26.4 pg 25.6-32.2 (BEAKER) (test code = 751) MEAN CORPUSCULAR HEMOGLOBIN CONC 34.8 GM/DL 32.2-35.5 (BEAKER) (test code = 752) RED CELL DISTRIBUTION WIDTH 17.5 % 11.7-14.4 H (BEAKER) (test code = 412) PLATELET COUNT (BEAKER) (test code 92 K/CU MM 150-450 L = 756) MEAN PLATELET VOLUME (BEAKER) 10.6 fL 9.4-12.3 (test code = 754) NUCLEATED RED BLOOD CELLS (BEAKER) 0 /100 WBC 0-0 (test code = 413) NEUTROPHILS RELATIVE PERCENT 83 % (BEAKER) (test code = 429) LYMPHOCYTES RELATIVE PERCENT 8 % (BEAKER) (test code = 430) MONOCYTES RELATIVE PERCENT 7 % (BEAKER) (test code = 431) EOSINOPHILS RELATIVE PERCENT 1 % (BEAKER) (test code = 432) BASOPHILS RELATIVE PERCENT 0 % (BEAKER) (test code = 437) NEUTROPHILS ABSOLUTE COUNT 14.77 K/ L 1.56-6.13 H (BEAKER) (test code = 670) LYMPHOCYTES ABSOLUTE COUNT 1.42 K/ L 1.18-3.74 (BEAKER) (test code = 414) MONOCYTES ABSOLUTE COUNT (BEAKER) 1.17 K/ L 0.24-0.36 H (test code = 415) EOSINOPHILS ABSOLUTE COUNT 0.13 K/ L 0.04-0.36 (BEAKER) (test code = 416) BASOPHILS ABSOLUTE COUNT (BEAKER) 0.02 K/ L 0.01-0.08 (test code = 417) IMMATURE GRANULOCYTES-RELATIVE 2 % 0-1 H PERCENT (BEAKER) (test code = 2801) LACTIC ACID, [id number] 05:16:00 Test Item Value Reference Range Interpretation Comments LACTATE BLOOD VENOUS (2) (BEAKER) 1.8 mmol/L 0.5-2.2 (test code = 2872) [id number] 23:51:00 Test Item Value Reference Range Interpretation Comments PHOSPHORUS (BEAKER) (test code = 4.4 mg/dL 2.3-4.7 604) [id number] 23:51:00 Test Item Value Reference Range Interpretation Comments MAGNESIUM (BEAKER) (test code = 2.2 mg/dL 1.6-2.6 627) BASIC METABOLIC [id number] 23:51:00 Test Item Value Reference Range Interpretation Comments SODIUM (BEAKER) 137 meq/L 136-145 (test code = 381) POTASSIUM (BEAKER) 4.0 meq/L 3.5-5.1 (test code = 379) CHLORIDE (BEAKER) 105 meq/L 98-107 (test code = 382) CO2 (BEAKER) (test 21 meq/L 22-29 L code = 355) BLOOD UREA NITROGEN 22 mg/dL 7-21 H (BEAKER) (test code = 354) CREATININE (BEAKER) 1.15 mg/dL 0.57-1.25 (test code = 358) GLUCOSE RANDOM 160 mg/dL 70-105 H (BEAKER) (test code = 652) CALCIUM (BEAKER) 8.0 mg/dL 8.4-10.2 L (test code = 697) EGFR (BEAKER) (test 49 mL/min/1.73 ESTIMA GREY GFR IS code = 1092) sq m NOT ACCURATE CREATININE CLEARANCE IN PREDICTING GLOMERULAR FILTRATION RATE . ESTIMATED GFR I S NOT APPLICABLE FOR DIALYSIS PATIEN TS. Specimen slightly ictericBLOOD GAS, [id number] 23:37:00 Test Item Value Reference Range Interpretation Comments PH ARTERIAL (BEAKER) (test code = 7.52 7.35-7.45 H 383) PCO2 ARTERIAL (BEAKER) (test code 28 mmHg 35-45 L = 384) PO2 ARTERIAL (BEAKER) (test code = 202 mmHg 80-90 H 385) O2 SATURATION ARTERIAL (BEAKER) 99.5 % 96.0-97.0 H (test code = 386) HCO3 ARTERIAL (BEAKER) (test code 22 mmol/L 21-29 = 388) BASE EXCESS ARTERIAL (BEAKER) 0.2 mmol/L -2.0-3.0 (test code = 387) PATIENT TEMPERATURE (BEAKER) (test 38.0 C code = 1818) FIO2 (BEAKER) (test code = 1819) 50.0 % CBC W/PLT COUNT & AUTO [id number] 20:12:00 Test Item Value Reference Range Interpretation Comments WHITE BLOOD CELL COUNT (BEAKER) 14.8 K/ L 3.5-10.5 H (test code = 775) RED BLOOD CELL COUNT (BEAKER) 3.11 M/ L 3.93-5.22 L (test code = 761) HEMOGLOBIN (BEAKER) (test code = 8.1 GM/DL 11.2-15.7 L 410) HEMATOCRIT (BEAKER) (test code = 23.2 % 34.1-44.9 L 411) MEAN CORPUSCULAR VOLUME (BEAKER) 74.6 fL 79.4-94.8 L (test code = 753) MEAN CORPUSCULAR HEMOGLOBIN 26.0 pg 25.6-32.2 (BEAKER) (test code = 751) MEAN CORPUSCULAR HEMOGLOBIN CONC 34.9 GM/DL 32.2-35.5 (BEAKER) (test code = 752) RED CELL DISTRIBUTION WIDTH 17.2 % 11.7-14.4 H (BEAKER) (test code = 412) PLATELET COUNT (BEAKER) (test code 92 K/CU MM 150-450 L = 756) MEAN PLATELET VOLUME (BEAKER) 10.8 fL 9.4-12.3 (test code = 754) NUCLEATED RED BLOOD CELLS (BEAKER) 1 /100 WBC 0-0 H (test code = 413) NEUTROPHILS RELATIVE PERCENT 81 % (BEAKER) (test code = 429) LYMPHOCYTES RELATIVE PERCENT 9 % (BEAKER) (test code = 430) MONOCYTES RELATIVE PERCENT 7 % (BEAKER) (test code = 431) EOSINOPHILS RELATIVE PERCENT 1 % (BEAKER) (test code = 432) BASOPHILS RELATIVE PERCENT 0 % (BEAKER) (test code = 437) NEUTROPHILS ABSOLUTE COUNT 12.06 K/ L 1.56-6.13 H (BEAKER) (test code = 670) LYMPHOCYTES ABSOLUTE COUNT 1.27 K/ L 1.18-3.74 (BEAKER) (test code = 414) MONOCYTES ABSOLUTE COUNT (BEAKER) 1.09 K/ L 0.24-0.36 H (test code = 415) EOSINOPHILS ABSOLUTE COUNT 0.13 K/ L 0.04-0.36 (BEAKER) (test code = 416) BASOPHILS ABSOLUTE COUNT (BEAKER) 0.02 K/ L 0.01-0.08 (test code = 417) IMMATURE GRANULOCYTES-RELATIVE 2 % 0-1 H PERCENT (BEAKER) (test code = 2801) POCT-GLUCOSE [id number] 20:01:00 Test Item Value Reference Range Interpretation Comments POC-GLUCOSE METER 143 mg/dL 70-110 H : TESTED A T [facility] 6720 (BEAKER) (test code = [facility], 1538) [id number]: [employer] Director/Techni theo ID = [id number] for Liban Arnett BLOOD GAS, [id number] 19:54:00 Test Item Value Reference Range Interpretation Comments PH ARTERIAL (BEAKER) (test code = 7.57 7.35-7.45 H 383) PCO2 ARTERIAL (BEAKER) (test code 27 mmHg 35-45 L = 384) PO2 ARTERIAL (BEAKER) (test code = 75 mmHg 80-90 L 385) O2 SATURATION ARTERIAL (BEAKER) 96.2 % 96.0-97.0 (test code = 386) HCO3 ARTERIAL (BEAKER) (test code 24 mmol/L 21-29 = 388) BASE EXCESS ARTERIAL (BEAKER) 2.3 mmol/L -2.0-3.0 (test code = 387) PATIENT TEMPERATURE (BEAKER) (test 38.5 C code = 1818) FIO2 (BEAKER) (test code = 1819) 24.0 % POCT-GLUCOSE [id number] 19:01:00 Test Item Value Reference Range Interpretation Comments POC-GLUCOSE METER 155 mg/dL 70-110 H : TESTED A T [facility] 6720 (BEAKER) (test code = [facility], 1538) [id number]: [employer] Director/Techni theo ID = [id number] for SA NDERS, GIDE[place] HEPATOBILIARY [id number] 18:38:00Please do at bedside. Thank you.FINAL REPORT PROCEDURE: HEPATOBILIARY SCAN CPT CODE: 34011 INDICATION: abdominal pain PROTOCOL: 5.3 mCi of [...] small bowel. IMPRESSION: Normal hepatobiliary scan. Signed: Jeffery Alarcon MDReport Verified Date/Time: 10/07/2019 18:38:40 Electronicallysigned by: JEFFERY ALARCON MD on 10/07/2019 06:38 PMPOCT-GLUCOSE [id number] 16:52:00 Test Item Value Reference Range Interpretation Comments POC-GLUCOSE METER 166 mg/dL 70-110 H : TESTED A T [facility] 6720 (BEAKER) (test code = [facility], 1538) [id number]: [employer] Director/Techni theo ID = [id number] for GIDEON NUNEZ PT/[id number] 16:40:00 Test Item Value Reference Range Interpretation Comments PROTIME (BEAKER) (test code = 24.8 seconds 11.9-14.2 H 759) INR (BEAKER) (test code = 370) 2.4 <=5.9 PARTIAL THROMBOPLASTIN TIME 32.5 seconds 22.5-36.0 (BEAKER) (test code = 760) Effective 04/25/2019: PT Reference Range ChangeNew: 11.9-14.2 Previous: 11.7- 14.7RECOMMENDED COUMADIN/WARFARIN INR THERAPY RANGESSTANDARD DOSE: 2.0-3.0 Includes: PROPHYLAXIS for venous thrombosis, systemic embolization; TREATMENT for venous thrombosis and/or pulmonary embolus.HIGH RISK: Target INR is2.5-3.5 for patients wiht mechanical heart valves.[id number] 16:40:00 Test Item Value Reference Range Interpretation Comments FIBRINOGEN LEVEL (BEAKER) (test 156 mg/dl 225-434 L code = 658) PROTHROMBIN TIME/[id number] 16:39:00 Test Item Value Reference Range Interpretation Comments PROTIME (BEAKER) (test code = 24.8 seconds 11.9-14.2 H 759) INR (BEAKER) (test code = 370) 2.4 <=5.9 Effective 04/25/2019: PT Reference Range ChangeNew: 11.9-14.2 Previous: 11.7- 14.7RECOMMENDED COUMADIN/WARFARIN INR THERAPY RANGESSTANDARD DOSE: 2.0-3.0 Includes: PROPHYLAXIS for venous thrombosis, systemic embolization; TREATMENT for venous thrombosis and/or pulmonary embolus.HIGH RISK: Target INR is2.5-3.5 for patients wiht mechanical heart valves.[id number] 16:36:00 Test Item Value Reference Range Interpretation Comments PHOSPHORUS (BEAKER) (test code = 1.8 mg/dL 2.3-4.7 L 604) [id number] 16:36:00 Test Item Value Reference Range Interpretation Comments MAGNESIUM (BEAKER) (test code = 2.5 mg/dL 1.6-2.6 627) BASIC METABOLIC [id number] 16:36:00 Test Item Value Reference Range Interpretation Comments SODIUM (BEAKER) 139 meq/L 136-145 (test code = 381) POTASSIUM (BEAKER) 3.3 meq/L 3.5-5.1 L (test code = 379) CHLORIDE (BEAKER) 105 meq/L 98-107 (test code = 382) CO2 (BEAKER) (test 19 meq/L 22-29 L code = 355) BLOOD UREA NITROGEN 25 mg/dL 7-21 H (BEAKER) (test code = 354) CREATININE (BEAKER) 1.29 mg/dL 0.57-1.25 H (test code = 358) GLUCOSE RANDOM 165 mg/dL 70-105 H (BEAKER) (test code = 652) CALCIUM (BEAKER) 8.3 mg/dL 8.4-10.2 L (test code = 697) EGFR (BEAKER) (test 43 mL/min/1.73 ESTIMA GREY GFR IS code = 1092) sq m NOT ACCURATE CREATININE CLEARANCE IN PREDICTING GLOMERULAR FILTRATION RATE . ESTIMATED GFR I S NOT APPLICABLE FOR DIALYSIS PATIEN TS. BLOOD GAS, [id number] 16:22:00 Test Item Value Reference Range Interpretation Comments PH ARTERIAL (BEAKER) (test code = 7.54 7.35-7.45 H 383) PCO2 ARTERIAL (BEAKER) (test code 28 mmHg 35-45 L = 384) PO2 ARTERIAL (BEAKER) (test code = 101 mmHg 80-90 H 385) O2 SATURATION ARTERIAL (BEAKER) 98.1 % 96.0-97.0 H (test code = 386) HCO3 ARTERIAL (BEAKER) (test code 23 mmol/L 21-29 = 388) BASE EXCESS ARTERIAL (BEAKER) 1.3 mmol/L -2.0-3.0 (test code = 387) PATIENT TEMPERATURE (BEAKER) (test 38.0 C code = 1818) FIO2 (BEAKER) (test code = 1819) 25.0 % CBC W/PLT COUNT & AUTO [id number] 12:44:00 Test Item Value Reference Range Interpretation Comments WHITE BLOOD CELL COUNT (BEAKER) 21.0 K/ L 3.5-10.5 H (test code = 775) RED BLOOD CELL COUNT (BEAKER) 3.14 M/ L 3.93-5.22 L (test code = 761) HEMOGLOBIN (BEAKER) (test code = 8.4 GM/DL 11.2-15.7 L 410) HEMATOCRIT (BEAKER) (test code = 24.5 % 34.1-44.9 L 411) MEAN CORPUSCULAR VOLUME (BEAKER) 78.0 fL 79.4-94.8 L (test code = 753) MEAN CORPUSCULAR HEMOGLOBIN 26.8 pg 25.6-32.2 (BEAKER) (test code = 751) MEAN CORPUSCULAR HEMOGLOBIN CONC 34.3 GM/DL 32.2-35.5 (BEAKER) (test code = 752) RED CELL DISTRIBUTION WIDTH 17.6 % 11.7-14.4 H (BEAKER) (test code = 412) PLATELET COUNT (BEAKER) (test 103 K/CU MM 150-450 L code = 756) MEAN PLATELET VOLUME (BEAKER) 10.3 fL 9.4-12.3 (test code = 754) NUCLEATED RED BLOOD CELLS 0 /100 WBC 0-0 (BEAKER) (test code = 413) NEUTROPHILS RELATIVE PERCENT 83 % (BEAKER) (test code = 429) LYMPHOCYTES RELATIVE PERCENT 7 % (BEAKER) (test code = 430) MONOCYTES RELATIVE PERCENT 6 % (BEAKER) (test code = 431) EOSINOPHILS RELATIVE PERCENT 1 % (BEAKER) (test code = 432) BASOPHILS RELATIVE PERCENT 0 % (BEAKER) (test code = 437) NEUTROPHILS ABSOLUTE COUNT 17.33 K/ L 1.56-6.13 H (BEAKER) (test code = 670) LYMPHOCYTES ABSOLUTE COUNT 1.54 K/ L 1.18-3.74 (BEAKER) (test code = 414) MONOCYTES ABSOLUTE COUNT (BEAKER) 1.34 K/ L 0.24-0.36 H (test code = 415) EOSINOPHILS ABSOLUTE COUNT 0.16 K/ L 0.04-0.36 (BEAKER) (test code = 416) BASOPHILS ABSOLUTE COUNT (BEAKER) 0.04 K/ L 0.01-0.08 (test code = 417) IMMATURE GRANULOCYTES-RELATIVE 3 % 0-1 H PERCENT (BEAKER) (test code = 2801) POCT-GLUCOSE [id number] 12:23:00 Test Item Value Reference Range Interpretation Comments POC-GLUCOSE METER 145 mg/dL 70-110 H : TESTED A T [facility] 6720 (BEAKER) (test code = LIV Dozier [facility], 1538) [id number]: [employer] Director/Techni theo ID = [id number] for GIDEON NUNEZ [id number] 12:06:00 Test Item Value Reference Range Interpretation Comments T4 TOTAL (BEAKER) (test code = 895) 4.6 ug/dL 4.9-11.7 L [id number] 10:00:00 Test Item Value Reference Range Interpretation Comments PHOSPHORUS (BEAKER) (test code = 2.8 mg/dL 2.3-4.7 604) [id number] 10:00:00 Test Item Value Reference Range Interpretation Comments MAGNESIUM (BEAKER) (test code = 2.0 mg/dL 1.6-2.6 627) BASIC METABOLIC [id number] 10:00:00 Test Item Value Reference Range Interpretation Comments SODIUM (BEAKER) 137 meq/L 136-145 (test code = 381) POTASSIUM (BEAKER) 3.1 meq/L 3.5-5.1 L (test code = 379) CHLORIDE (BEAKER) 106 meq/L 98-107 (test code = 382) CO2 (BEAKER) (test 16 meq/L 22-29 L code = 355) BLOOD UREA NITROGEN 28 mg/dL 7-21 H (BEAKER) (test code = 354) CREATININE (BEAKER) 1.23 mg/dL 0.57-1.25 (test code = 358) GLUCOSE RANDOM 169 mg/dL 70-105 H (BEAKER) (test code = 652) CALCIUM (BEAKER) 8.0 mg/dL 8.4-10.2 L (test code = 697) EGFR (BEAKER) (test 45 mL/min/1.73 ESTIMA GREY GFR IS code = 1092) sq m NOT ACCURATE CREATININE CLEARANCE IN PREDICTING GLOMERULAR FILTRATION RATE . ESTIMATED GFR I S NOT APPLICABLE FOR DIALYSIS PATIEN TS. POCT-GLUCOSE [id number] 08:15:00 Test Item Value Reference Range Interpretation Comments POC-GLUCOSE METER 174 mg/dL 70-110 H : TESTED A T [facility] 6720 (BEAKER) (test code = LIV Dozier [facility], 1538) [id number]: [employer] Director/Techni thoe ID = [id number] for SA NDERS, GIDEON RAD, CHEST, 1 VIEW, NON [id number] 05:39:00Reason for exam:- >intubatedShould this be performed at the bedside?->YesFINAL REPORT RAD, CHEST, 1 VIEW, NON DEPT INDICATION: intubated COMPARISON: Prior day's exam FINDINGS: Portable frontal view of the chest. IMPRESSION: Support Lines: Stable. Lungs and pleura: Unchanged scattered interstitial and parenchymal opacities. No pleural effusion. No p neumothorax.Heart and mediastinum: Stable contours. Additional findings: None. Signed: Aurelia Cummins MDReport Verified Date/Time: 10/07/2019 05:39:22 BLOOD GAS, [id number] 05:29:00 Test Item Value Reference Range Interpretation Comments PH ARTERIAL (BEAKER) (test code = 7.43 7.35-7.45 383) PCO2 ARTERIAL (BEAKER) (test code 28 mmHg 35-45 L = 384) PO2 ARTERIAL (BEAKER) (test code 113 mmHg 80-90 H = 385) O2 SATURATION ARTERIAL (BEAKER) 98.1 % 96.0-97.0 H (test code = 386) HCO3 ARTERIAL (BEAKER) (test code 18 mmol/L 21-29 L = 388) BASE EXCESS ARTERIAL (BEAKER) -5.2 mmol/L -2.0-3.0 L (test code = 387) PATIENT TEMPERATURE (BEAKER) 38.5 C (test code = 1818) FIO2 (BEAKER) (test code = 1819) 40.0 % [id number] 05:07:00 Test Item Value Reference Range Interpretation Comments D-DIMER QUANTITATIVE (BEAKER) > MG/L FEU <0.50 H (test code = 671) Intended Use: The D-Dimer Assay can be used to aid in the diagnosis of Deep Vein Thrombosis (DVT) and Pulmonary Embolism Disease (PED).In patients with low pre- test probability, various studies concerning STA Liatest D-dimer test have reported that with a cutoff value of 0.50 MG/L FEU, the Negative Predictive Value (NPV) regarding the exclusion of thrombosis is within 95-100% range. COMPREHENSIVE METABOLIC [id number] 04:59:00 Test Item Value Reference Range Interpretation Comments TOTAL PROTEIN 5.1 gm/dL 6.0-8.3 L (BEAKER) (test code = 770) ALBUMIN (BEAKER) 3.3 g/dL 3.5-5.0 L (test code = 1145) ALKALINE PHOSPHATASE 201 U/L 40-150 H (BEAKER) (test code = 346) BILIRUBIN TOTAL 2.1 mg/dL 0.2-1.2 H (BEAKER) (test code = 377) SODIUM (BEAKER) (test 135 meq/L 136-145 L code = 381) POTASSIUM (BEAKER) 3.7 meq/L 3.5-5.1 (test code = 379) CHLORIDE (BEAKER) 110 meq/L 98-107 H (test code = 382) CO2 (BEAKER) (test 11 meq/L 22-29 L code = 355) BLOOD UREA NITROGEN 30 mg/dL 7-21 H (BEAKER) (test code = 354) CREATININE (BEAKER) 1.16 mg/dL 0.57-1.25 (test code = 358) GLUCOSE RANDOM 141 mg/dL 70-105 H (BEAKER) (test code = 652) CALCIUM (BEAKER) 7.5 mg/dL 8.4-10.2 L (test code = 697) AST (SGOT) (BEAKER) 1933 U/L 5-34 H (test code = 353) ALT (SGPT) (BEAKER) 2826 U/L 6-55 H (test code = 347) EGFR (BEAKER) (test 49 mL/min/1.73 ESTIMA GREY GFR IS code = 1092) sq m NOT ACCURATE CREATININE CLEARANCE IN PREDICTING GLOMERULAR FILTRATION RATE . ESTIMATED GFR I S NOT APPLICABLE FOR DIALYSIS PATIEN TS. CBC W/PLT COUNT & AUTO [id number] 04:32:00 Test Item Value Reference Range Interpretation Comments WHITE BLOOD CELL COUNT (BEAKER) 17.4 K/ L 3.5-10.5 H (test code = 775) RED BLOOD CELL COUNT (BEAKER) 3.17 M/ L 3.93-5.22 L (test code = 761) HEMOGLOBIN (BEAKER) (test code = 8.3 GM/DL 11.2-15.7 L 410) HEMATOCRIT (BEAKER) (test code = 24.5 % 34.1-44.9 L 411) MEAN CORPUSCULAR VOLUME (BEAKER) 77.3 fL 79.4-94.8 L (test code = 753) MEAN CORPUSCULAR HEMOGLOBIN 26.2 pg 25.6-32.2 (BEAKER) (test code = 751) MEAN CORPUSCULAR HEMOGLOBIN CONC 33.9 GM/DL 32.2-35.5 (BEAKER) (test code = 752) RED CELL DISTRIBUTION WIDTH 17.6 % 11.7-14.4 H (BEAKER) (test code = 412) PLATELET COUNT (BEAKER) (test code 88 K/CU MM 150-450 L = 756) MEAN PLATELET VOLUME (BEAKER) 9.7 fL 9.4-12.3 (test code = 754) NUCLEATED RED BLOOD CELLS (BEAKER) 1 /100 WBC 0-0 H (test code = 413) NEUTROPHILS RELATIVE PERCENT 83 % (BEAKER) (test code = 429) LYMPHOCYTES RELATIVE PERCENT 9 % (BEAKER) (test code = 430) MONOCYTES RELATIVE PERCENT 5 % (BEAKER) (test code = 431) EOSINOPHILS RELATIVE PERCENT 1 % (BEAKER) (test code = 432) BASOPHILS RELATIVE PERCENT 0 % (BEAKER) (test code = 437) NEUTROPHILS ABSOLUTE COUNT 14.45 K/ L 1.56-6.13 H (BEAKER) (test code = 670) LYMPHOCYTES ABSOLUTE COUNT 1.50 K/ L 1.18-3.74 (BEAKER) (test code = 414) MONOCYTES ABSOLUTE COUNT (BEAKER) 0.91 K/ L 0.24-0.36 H (test code = 415) EOSINOPHILS ABSOLUTE COUNT 0.14 K/ L 0.04-0.36 (BEAKER) (test code = 416) BASOPHILS ABSOLUTE COUNT (BEAKER) 0.02 K/ L 0.01-0.08 (test code = 417) IMMATURE GRANULOCYTES-RELATIVE 2 % 0-1 H PERCENT (BEAKER) (test code = 2801) [id number] 04:30:00 Test Item Value Reference Range Interpretation Comments PHOSPHORUS (BEAKER) (test code = 3.1 mg/dL 2.3-4.7 604) [id number] 04:30:00 Test Item Value Reference Range Interpretation Comments MAGNESIUM (BEAKER) (test code = 1.8 mg/dL 1.6-2.6 627) POCT-GLUCOSE [id number] 04:25:00 Test Item Value Reference Range Interpretation Comments POC-GLUCOSE METER 126 mg/dL 70-110 H : TESTED A T [facility] 6720 (BEAKER) (test code = [facility], 1538) [id number]: [employer] Director/Techni theo ID = [id number] for Liban Arnett [id number] 04:18:00 Test Item Value Reference Range Interpretation Comments FIBRINOGEN LEVEL (BEAKER) (test 173 mg/dl 225-434 L code = 658) [id number] 04:14:00 Test Item Value Reference Range Interpretation Comments PROTIME (BEAKER) (test code = 25.9 seconds 11.9-14.2 H 759) INR (BEAKER) (test code = 370) 2.5 <=5.9 PARTIAL THROMBOPLASTIN TIME 34.5 seconds 22.5-36.0 (BEAKER) (test code = 760) Effective 04/25/2019: PT Reference Range ChangeNew: 11.9-14.2 Previous: 11.7- 14.7RECOMMENDED COUMADIN/WARFARIN INR THERAPY RANGESSTANDARD DOSE: 2.0-3.0 Includes: PROPHYLAXIS for venous thrombosis, systemic embolization; TREATMENT for venous thrombosis and/or pulmonary embolus.HIGH RISK: Target INR is2.5-3.5 for patients wiht mechanical heart valves.LACTIC ACID, [id number] 04:13:00 Test Item Value Reference Range Interpretation Comments LACTATE BLOOD VENOUS (2) (BEAKER) 1.2 mmol/L 0.5-2.2 (test code = 2872) POCT-GLUCOSE [id number] 01:33:00 Test Item Value Reference Range Interpretation Comments POC-GLUCOSE METER 103 mg/dL 70-110 : TESTED A T [facility] 6720 (BEAKER) (test code = DONTAMD [employer] [facility], 1538) [id number]: [employer] Director/Techni theo ID = [id number] for GISELE CUETO HEMOGLOBIN AND [id number] 00:27:00 Test Item Value Reference Range Interpretation Comments HEMOGLOBIN (BEAKER) (test code = 8.6 GM/DL 11.2-15.7 L 410) HEMATOCRIT (BEAKER) (test code = 26.2 % 34.1-44.9 L 411) POCT-GLUCOSE [id number] 22:58:00 Test Item Value Reference Range Interpretation Comments POC-GLUCOSE METER 146 mg/dL 70-110 H : TESTED A T [facility] 6720 (BEAKER) (test code = [employer] [facility], 1538) [id number]: [employer] Director/Techni theo ID = [id number] for GISELE CUETO RAD, CHEST, 1 VIEW, NON [id number] 21:37:00Reason for exam:->line placement, right IJShould this [...] Stable surgical changes the left clavicle. Signed: Carolynn Rodríguez MDReport Verified Date/Time: 10/06/2019 21:37:58 BASI METABOLIC [id number] 20:04:00 Test Item Value Reference Range Interpretation Comments SODIUM (BEAKER) 137 meq/L 136-145 (test code = 381) POTASSIUM (BEAKER) 3.1 meq/L 3.5-5.1 L Specimen slightly (test code = 379) hemolyzed CHLORIDE (BEAKER) 112 meq/L 98-107 H (test code = 382) CO2 (BEAKER) (test 10 meq/L 22-29 LL code = 355) BLOOD UREA NITROGEN 37 mg/dL 7-21 H (BEAKER) (test code = 354) CREATININE (BEAKER) 1.21 mg/dL 0.57-1.25 Specimen slightly (test code = 358) hemolyzed GLUCOSE RANDOM 170 mg/dL 70-105 H (BEAKER) (test code = 652) CALCIUM (BEAKER) 7.9 mg/dL 8.4-10.2 L (test code = 697) EGFR (BEAKER) (test 46 mL/min/1.73 ESTIMA GREY GFR IS code = 1092) sq m NOT ACCURATE CREATININE CLEARANCE IN PREDICTING GLOMERULAR FILTRATION RATE . ESTIMATED GFR I S NOT APPLICABLE FOR DIALYSIS PATIEN TS. PROTEIN, RANDOM [id number] 19:50:00 Test Item Value Reference Range Interpretation Comments PROTEIN, URINE (BEAKER) (test code = 83 mg/dL 0-14 H 1569) CREATININE, RANDOM [id number] 19:28:00 Test Item Value Reference Range Interpretation Comments CREATININE URINE (BEAKER) (test 37.6 mg/dL code = 375) Reference Range: No [id number] 19:00:00 Test Item Value Reference Range Interpretation Comments MAGNESIUM (BEAKER) 2.0 mg/dL 1.6-2.6 Specimen slightly (test code = 627) hemolyzed [id number] 19:00:00 Test Item Value Reference Range Interpretation Comments PHOSPHORUS (BEAKER) 1.8 mg/dL 2.3-4.7 L Specimen slightly (test code = 604) hemolyzed CBC (HEMOGRAM ONLY)2019-10-06 18:59:00 Test Item Value Reference Range Interpretation Comments WHITE BLOOD CELL COUNT (BEAKER) 16.6 K/ L 3.5-10.5 H (test code = 775) RED BLOOD CELL COUNT (BEAKER) 2.45 M/ L 3.93-5.22 L (test code = 761) HEMOGLOBIN (BEAKER) (test code = 6.8 GM/DL 11.2-15.7 L 410) HEMATOCRIT (BEAKER) (test code = 18.2 % 34.1-44.9 L 411) MEAN CORPUSCULAR VOLUME (BEAKER) 74.3 fL 79.4-94.8 L (test code = 753) MEAN CORPUSCULAR HEMOGLOBIN 27.8 pg 25.6-32.2 (BEAKER) (test code = 751) MEAN CORPUSCULAR HEMOGLOBIN CONC 37.4 GM/DL 32.2-35.5 H (BEAKER) (test code = 752) RED CELL DISTRIBUTION WIDTH 16.5 % 11.7-14.4 H (BEAKER) (test code = 412) PLATELET COUNT (BEAKER) (test code 96 K/CU MM 150-450 L = 756) MEAN PLATELET VOLUME (BEAKER) 9.5 fL 9.4-12.3 (test code = 754) NUCLEATED RED BLOOD CELLS (BEAKER) 0 /100 WBC 0-0 (test code = 413) LACTIC ACID, [id number] 18:55:00 Test Item Value Reference Range Interpretation Comments LACTATE BLOOD VENOUS 1.9 mmol/L 0.5-2.2 Specime n slightly (2) (BEAKER) (test hemolyzed code = 2872) VITAMIN B12 AND [id number] 18:36:00 Test Item Value Reference Range Interpretation Comments VITAMIN B12 (BEAKER) (test code = > pg/mL 213-816 H 774) FOLATE (BEAKER) (test code = 362) 17.3 ng/mL >=7.0 BLOOD GAS, [id number] 18:29:00 Test Item Value Reference Range Interpretation Comments PH ARTERIAL (BEAKER) (test code = 7.41 7.35-7.45 383) PCO2 ARTERIAL (BEAKER) (test code 25 mmHg 35-45 L = 384) PO2 ARTERIAL (BEAKER) (test code 88 mmHg 80-90 = 385) O2 SATURATION ARTERIAL (BEAKER) 96.6 % 96.0-97.0 (test code = 386) HCO3 ARTERIAL (BEAKER) (test code 15 mmol/L 21-29 L = 388) BASE EXCESS ARTERIAL (BEAKER) -8.0 mmol/L -2.0-3.0 L (test code = 387) PATIENT TEMPERATURE (BEAKER) 38.0 C (test code = 1818) FIO2 (BEAKER) (test code = 1819) 40.0 % BASIC METABOLIC [id number] 17:47:00 Test Item Value Reference Range Interpretation Comments SODIUM (BEAKER) 138 meq/L 136-145 (test code = 381) POTASSIUM (BEAKER) 4.1 meq/L 3.5-5.1 (test code = 379) CHLORIDE (BEAKER) 113 meq/L 98-107 H (test code = 382) CO2 (BEAKER) (test 10 meq/L 22-29 LL code = 355) BLOOD UREA NITROGEN 37 mg/dL 7-21 H (BEAKER) (test code = 354) CREATININE (BEAKER) 1.19 mg/dL 0.57-1.25 (test code = 358) GLUCOSE RANDOM 137 mg/dL 70-105 H (BEAKER) (test code = 652) CALCIUM (BEAKER) 8.1 mg/dL 8.4-10.2 L (test code = 697) EGFR (BEAKER) (test 47 mL/min/1.73 ESTIMA GREY GFR IS code = 1092) sq m NOT ACCURATE CREATININE CLEARANCE IN PREDICTING GLOMERULAR FILTRATION RATE . ESTIMATED GFR I S NOT APPLICABLE FOR DIALYSIS PATIEN TS. POCT-GLUCOSE [id number] 17:39:00 Test Item Value Reference Range Interpretation Comments POC-GLUCOSE METER 188 mg/dL 70-110 H : TESTED A T [facility] 6720 (BEAKER) (test code = [facility] [place], 1538) [id number]: [employer] Director/Techni theo ID = [id number] for GIDEON NNUEZ LIPID [id number] 17:28:00 Test Item Value Reference Range Interpretation Comments TRIGLYCERIDES (BEAKER) (test code = 182 mg/dL 540) CHOLESTEROL (BEAKER) (test code = 106 mg/dL 631) HDL CHOLESTEROL (BEAKER) (test code 20 mg/dL = 976) LDL CHOLESTEROL CALCULATED (BEAKER) 50 mg/dL (test code = 633) Triglyceride Reference Range: Low Risk <150 Borderline 150-199 High Risk 200-499 Very High Risk >=500Cholesterol Reference Range: Low Risk <200 Borderline 200-239 High Risk >240HDL Cholesterol Reference Range: Low Risk >=60 High Risk <40LDL Cholesterol Reference Range: Optimal <100 Near Optimal 100-129 Borderline 130-159 High 160-189 Very High >=190URIC [id number] 17:28:00 Test Item Value Reference Range Interpretation Comments URIC ACID (BEAKER) (test code = 7.3 mg/dL 2.6-7.2 H 773) HEMOGLOBIN [id number] 16:13:00 Test Item Value Reference Range Interpretation Comments HEMOGLOBIN A1C (BEAKER) (test code = 6.0 % 4.3-6.1 368) HEPATITIS A ANTIBODY, [id number] 16:13:00 Test Item Value Reference Range Interpretation Comments HEPATITIS A IGG ANTIBODY (BEAKER) Reactive Nonreactive A (test code = 2797) CARCINOEMBRYONIC ANTIGEN (CEA)2019-10-06 16:08:00 Test Item Value Reference Range Interpretation Comments CARCINOEMBRYONIC ANTIGEN (BEAKER) 23.1 ng/mL 0.0-5.0 H (test code = 685) VITAMIN D, [id number] 16:08:00 Test Item Value Reference Range Interpretation Comments VITAMIN D 25-OH (BEAKER) (test 10.1 ng/mL 6.6-49.9 code = 2764) Effective 09/07/2017: Reference Range ChangeNew: 6.6-49.9 ng/mL Previous: 13.0-47.8 ng/mLRecommended Vitamin D Target Range: 30.0-40.0 ng/mLTRANSFERRIN 2019-10-06 15:52:00 Test Item Value Reference Range Interpretation Comments TRANSFERRIN (JASON) (test code = 218 mg/dL 174-382 541) [id number] 15:09:00 Test Item Value Reference Range Interpretation Comments PHOSPHORUS (JASON) (test code = 1.7 mg/dL 2.3-4.7 L 604) U/S, ABDOMINAL, WITH [id number] 15:01:00Reason for exam:->acute liver injury, ? cholecystitis, [...] not seen. No intrahepatic biliary dilatation. Signed: Amanda Martin MDReport Verified Date/Time: 10/06/2019 15:01:21 Reading Location: [facility] C013X Ortho Consult Reading Room PREGNANCY SCREEN, [id number] 14:58:00 Test Item Value Reference Range Interpretation Comments TEST URINE (BEAKER) (test Negative code = 583) POCT-GLUCOSE [id number] 12:44:00 Test Item Value Reference Range Interpretation Comments POC-GLUCOSE METER 156 mg/dL 70-110 H : TESTED A T [facility] 6720 (BEAKER) (test code = [place], 1538) [id number]: [employer] Director/Techni theo ID = [id number] for SA NDERS, GIDEON [id number] 12:39:00 Test Item Value Reference Range Interpretation Comments RPR SCREEN (BEAKER) (test code = Nonreactive Nonreactive 420) B-TYPE NATRIURETIC FACTOR (BNP)2019-10-06 11:57:00 Test Item Value Reference Range Interpretation Comments B-TYPE NATRIURETIC PEPTIDE 3996 pg/mL 0-100 H (BEAKER) (test code = 700) [id number] 11:51:00 Test Item Value Reference Range Interpretation Comments MAGNESIUM (BEAKER) (test code = 2.2 mg/dL 1.6-2.6 627) BLOOD GAS, [id number] 11:50:00 Test Item Value Reference Range Interpretation Comments PH VENOUS (BEAKER) (test code = 7.34 7.32-7.42 701) PCO2 VENOUS (BEAKER) (test code 23 mmHg 41-51 L = 755) PO2 VENOUS (BEAKER) (test code = 70 mmHg 25-40 H 702) O2 SATURATION VENOUS (BEAKER) 93.2 % 40.0-70.0 H (test code = 703) HCO3 VENOUS (BEAKER) (test code 12 mmol/L 21-29 L = 705) BASE EXCESS VENOUS (BEAKER) -12.0 mmol/L -2.0-3.0 L (test code = 704) PATIENT TEMPERATURE (BEAKER) 37.4 C (test code = 1818) FIO2 (BEAKER) (test code = 1819) 50.0 % RESPIRATORY PANEL [id number] 11:35:00 Test Item Value Reference Range Interpretation Comments HUMAN METAPNEUMOVIRUS Not detected Not detected, (BEAKER) (test code = 2683) Equivocal RHINOVIRUS (BEAKER) (test Not detected Not detected, code = 2684) Equivocal INFLUENZA A (BEAKER) (test Not detected Not detected, code = 2685) Equivocal INFLUENZA A (NO SUBTYPE) (test code = 3606) INFLUENZA A SUBTYPE H1 (BEAKER) (test code = 2686) INFLUENZA A SUBTYPE H3 (BEAKER) (test code = 2687) INFLUENZA A SUBTYPE H1-2009 (BEAKER) (test code = 3198) INFLUENZA B (BEAKER) (test Not detected Not detected, code = 2688) Equivocal RESPIRATORY SYNCYTIAL VIRUS Not detected Not detected, (BEAKER) (test code = 3199) Equivocal PARAINFLUENZA VIRUS 1 Not detected Not detected, (BEAKER) (test code = 2691) Equivocal PARAINFLUENZA VIRUS 2 Not detected Not detected, (BEAKER) (test code = 2692) Equivocal PARAINFLUENZA VIRUS 3 Not detected Not detected, (BEAKER) (test code = 2693) Equivocal PARAINFLUENZA VIRUS 4 Not detected Not detected, (BEAKER) (test code = 3200) Equivocal ADENOVIRUS (BEAKER) (test Not detected Not detected, code = 2694) Equivocal CORONAVIRUS 229E (BEAKER) Not detected Not detected, (test code = 3201) Equivocal CORONAVIRUS HKU1 (BEAKER) Not detected Not detected, (test code = 3202) Equivocal CORONAVIRUS NL63 (BEAKER) Not detected Not detected, (test code = 3203) Equivocal CORONAVIRUS OC43 (BEAKER) Not detected Not detected, (test code = 3204) Equivocal BORDETELLA PERTUSSIS Not detected Not detected, (BEAKER) (test code = 3205) Equivocal CHLAMYDOPHILA PNEUMONIAE Not detected Not detected, (BEAKER) (test code = 3206) Equivocal MYCOPLASMA PNEUMONIAE Not detected Not detected, (BEAKER) (test code = 3207) Equivocal Other viruses and bacteria not targeted by this PCR panel cannot be excluded; therefore clinical correlation and follow up of serology, culture results, and other molecular studies is required. The results are not intended to be used as the sole means for clinical diagnosis or patient management decisions. This sample was tested at the [facility] Molecular Diagnostics Laboratory using the [employer] FilmArray Respiratory Panel. It is FDA cleared and has been verified and approved by the [facility] for clinical use on nasopharyngeal swab specimens.The performance of the FilmArrayRP has not been established in individuals who received influenza vaccine. Recent administration ofa nasal influenza vaccine may cause false positive results for Influenza A and/orInfluenza B.RETICULOCYTE [id number] 11:32:00 Test Item Value Reference Range Interpretation Comments RETICULOCYTE COUNT PCT (AKER) (test 2.1 % 0.5-1.7 H code = 575) KETONE, [id number] 11:30:00 Test Item Value Reference Range Interpretation Comments KETONES, BLOOD (BEAKER) (test code 0.3 mmol/L <0.4 = 1103) LEGIONELLA ANTIGEN, [id number] 09:37:00 Test Item Value Reference Range Interpretation Comments L. PNEUMOPHILA Negative - see Negative fo r L. SEROGP 1 UR AG comment pneumophila (AKER) (test code serogrou p 1 antigen, = 1156) suggesting no r ecent or current infe ction with this serog roup. Legionellosis c annot be ruled out si nce other serogroup s and species may cau se disease. STREP PNEUMONIAE [id number] 09:37:00 Test Item Value Reference Range Interpretation Comments STREP PNEUMONIAE Presumptive negative Presumptive negative ANTIGEN (AKER) for pneumococcal for pneumococcal (test code = 1615) pneumonia - see pneumonia - see comment commen Presumptive negative for pneumococcal pneumonia, suggesting no current or recent pneumococcal infection. Infection due to S. pneumoniae cannot be ruled out since the antigen present in the sample may be below the detection limit of the test. POCT-GLUCOSE [id number] 08:45:00 Test Item Value Reference Range Interpretation Comments POC-GLUCOSE METER 119 mg/dL 70-110 H : TESTED A T [facility] 6720 (BEAKER) (test code = [facility], 1538) [id number]: [employer] Director/Techni theo ID = [id number] for SA NDERS, GIDEON RAD, CHEST, 1 VIEW, NON [id number] 08:37:00Post-intubationReason for exam:- >intubationShould this be performed at the bedside?->YesFINAL REPORT [...] could be made to exclude other etiologies.. Signed: Amanda Martin MDReport Verified Date/Time: 10/06/2019 08:37:13 Reading Location: [address] Consult Reading Room [id number] 07:44:00 Test Item Value Reference Range Interpretation Comments PROCALCITONIN (BEAKER) (test code 0.97 ng/mL <0.05 H = 3036) SEPSIS RISK (ng/mL)Low: 0.05-0.50Intermediate: 0.51-2.00High: >=2.01URINALYSIS W/ REFLEX URINE [id number] 07:15:00 Test Item Value Reference Range Interpretation Comments COLOR (BEAKER) (test code = 470) Yellow CLARITY (BEAKER) (test code = 469) Clear SPECIFIC GRAVITY UA (BEAKER) (test 1.014 1.001-1.035 code = 468) PH UA (BEAKER) (test code = 467) 6.5 5.0-8.0 PROTEIN UA (BEAKER) (test code = 20 mg/dL Negative A 464) GLUCOSE UA (BEAKER) (test code = Negative Negative 365) KETONES UA (BEAKER) (test code = Negative Negative 371) BILIRUBIN UA (BEAKER) (test code = Negative Negative 462) BLOOD UA (BEAKER) (test code = 461) Moderate Negative A NITRITE UA (BEAKER) (test code = Negative Negative 465) LEUKOCYTE ESTERASE UA (BEAKER) Negative Negative (test code = 466) UROBILINOGEN UA (BEAKER) (test code 0.2 mg/dL 0.2-1.0 = 463) RBC UA (BEAKER) (test code = 519) 16 /HPF WBC UA (BEAKER) (test code = 520) 1 /HPF BACTERIA (BEAKER) (test code = 517) Rare SQUAMOUS EPITHELIAL (BEAKER) (test < /HPF code = 516) AMORPHOUS CRYSTALS (BEAKER) (test Rare code = 1584) SOURCE(BEAKER) (test code = 2795) ALPHA FETOPROTEIN (AFP), TUMOR [id number] 06:49:00 Test Item Value Reference Range Interpretation Comments ALPHA-FETOPROTEIN (BEAKER) (test code < ng/mL <10.0 = 1094) For 1 occurencesHEPATITIS B SURFACE [id number] 06:49:00 Test Item Value Reference Range Interpretation Comments HEPATITIS B SURFACE ANTIBODY < mIU/mL <8.0 (BEAKER) (test code = 647) For 1 occurencesRAPID DRUG SCREEN, [id number] 06:33:00 Test Item Value Reference Range Interpretation Comments BARBITURATE URINE (BEAKER) (test Negative Negative code = 725) BENZODIAZEPINE SCREEN URINE (BEAKER) Negative Negative (test code = 726) COCAINE (METAB.) SCREEN (BEAKER) Negative Negative (test code = 1164) METHADONE SCREEN (BEAKER) (test code Negative Negative = 1436) OPIATE SCREEN URINE (BEAKER) (test Positive Negative A code = 734) CANNABINOID SCREEN URINE (BEAKER) Negative Negative (test code = 727) AMPH/METHAMPH SCREEN (BEAKER) (test Negative Negative code = 1438) PHENCYCLIDINE SCREEN URINE (BEAKER) Negative Negative (test code = 608) DRUG CUTOFF CONC.Cocaine 300 ng/mL Cannabinoid 50 ng/mLBenzodiazepine 200 ng/mLBarbiturate 200 ng/mLPhencyclidine 25 ng/mLOpiate 300 ng/mLMethadone 300 ng/mLAmphetamine/ 1000 ng/mL MethamphetamineThis assay provides an unconfirmed qualitative test result for the clinical management of patients in emergency situations. Chain of custody not maintained. Some mxpa-sbl-vbpiawt medications, as well as adulterants, may cause inaccurate results. Clinical correlation should be applied. A more comprehensivedrug screen or confirmation of a detected drug may be performed upon request.CREATININE, RANDOM URINE 2019-10-06 06:30:00 Test Item Value Reference Range Interpretation Comments CREATININE URINE (BEAKER) (test 38.0 mg/dL code = 375) Reference Range: No NormalsSODIUM, RANDOM [id number] 06:30:00 Test Item Value Reference Range Interpretation Comments SODIUM URINE (BEAKER) (test code = 51 meq/L 243) Reference Range: No NormalsHEPATITIS B CORE ANTIBODY, [id number] 06:27:00 Test Item Value Reference Range Interpretation Comments HEPATITIS B CORE TOTAL ANTIBODY Nonreactive Nonreactive (BEAKER) (test code = 497) For 1 [id number] 05:50:00 Test Item Value Reference Range Interpretation Comments FERRITIN (BEAKER) (test code = 1588 ng/mL 5-275 H 361) For 1 occurencesACETAMINOPHEN [id number] 05:30:00 Test Item Value Reference Range Interpretation Comments ACETAMINOPHEN LEVEL (BEAKER) (test < ug/mL 10.0-30.0 L code = 344) Therapeutic Range: 10.0-30.0 g/mLToxic Levels: >200.0 g/mLFor 1 [id number]-[id number] 05:20:00 Test Item Value Reference Range Interpretation Comments ALPHA-1 ANTITRYPSIN (BEAKER) 266.90 mg/dL 90.00-200.00 H (test code = 502) [id number] 05:17:00 Test Item Value Reference Range Interpretation Comments THYROID STIMULATING HORMONE 0.75 uIU/mL 0.35-4.94 (BEAKER) (test code = 772) HEPATITIS PANEL, [id number] 05:17:00 Test Item Value Reference Range Interpretation Comments HEPATITIS A IGM ANTIBODY (BEAKER) Nonreactive Nonreactive (test code = 498) HEPATITIS B CORE IGM ANTIBODY Nonreactive Nonreactive (BEAKER) (test code = 645) HEPATITIS C ANTIBODY (BEAKER) Nonreactive Nonreactive (test code = 367) HEPATITIS B SURFACE ANTIGEN (2) Nonreactive Nonreactive (BEAKER) (test code = 2585) HIV-1 ANTIGEN WITH HIV-1/2 [id number] 05:17:00 Test Item Value Reference Range Interpretation Comments HIV-1 ANTIGEN WITH HIV 1\T\2 Nonreactive Nonreactive ANTIBODY (2) (BEAKER) (test code = 2586) BASIC METABOLIC [id number] 05:09:00 Test Item Value Reference Range Interpretation Comments SODIUM (BEAKER) 138 meq/L 136-145 (test code = 381) POTASSIUM (BEAKER) 3.3 meq/L 3.5-5.1 L (test code = 379) CHLORIDE (BEAKER) 112 meq/L 98-107 H (test code = 382) CO2 (BEAKER) (test 13 meq/L 22-29 L code = 355) BLOOD UREA NITROGEN 42 mg/dL 7-21 H (BEAKER) (test code = 354) CREATININE (BEAKER) 1.20 mg/dL 0.57-1.25 (test code = 358) GLUCOSE RANDOM 121 mg/dL 70-105 H (BEAKER) (test code = 652) CALCIUM (BEAKER) 7.7 mg/dL 8.4-10.2 L (test code = 697) EGFR (BEAKER) (test 47 mL/min/1.73 ESTIMA GREY GFR IS code = 1092) sq m NOT ACCURATE CREATININE CLEARANCE IN PREDICTING GLOMERULAR FILTRATION RATE . ESTIMATED GFR I S NOT APPLICABLE FOR DIALYSIS PATIEN TS. HEPATIC FUNCTION [id number] 05:09:00 Test Item Value Reference Range Interpretation Comments TOTAL PROTEIN (BEAKER) (test code = 5.5 gm/dL 6.0-8.3 L 770) ALBUMIN (BEAKER) (test code = 1145) 3.1 g/dL 3.5-5.0 L BILIRUBIN TOTAL (BEAKER) (test code 1.3 mg/dL 0.2-1.2 H = 377) BILIRUBIN DIRECT (BEAKER) (test 1.0 mg/dL 0.1-0.5 H code = 706) ALKALINE PHOSPHATASE (BEAKER) (test 231 U/L 40-150 H code = 346) AST (SGOT) (BEAKER) (test code = > U/L 5-34 H 353) ALT (SGPT) (BEAKER) (test code = > U/L 6-55 H 347) [id number] 05:07:00 Test Item Value Reference Range Interpretation Comments PHOSPHORUS (BEAKER) (test code = 3.6 mg/dL 2.3-4.7 604) [id number] 05:07:00 Test Item Value Reference Range Interpretation Comments MAGNESIUM (BEAKER) (test code = 2.2 mg/dL 1.6-2.6 627) CREATINE KINASE (CK)2019-10-06 05:07:00 Test Item Value Reference Range Interpretation Comments CREATINE KINASE TOTAL (BEAKER) (test 1901 U/L 29-200 H code = 380) GAMMA GLUTAMYL TRANSFERASE (GGT)2019-10-06 05:07:00 Test Item Value Reference Range Interpretation Comments GAMMA GLUTAMYL TRANSFERASE (BEAKER) 111 U/L 9-64 H (test code = 364) LACTIC ACID, [id number] 04:58:00 Test Item Value Reference Range Interpretation Comments LACTATE BLOOD ARTERIAL (2) 1.5 mmol/L 0.5-2.2 (BEAKER) (test code = 2874) [id number] 04:56:00 Test Item Value Reference Range Interpretation Comments ETHANOL (BEAKER) (test code = 400) < mg/dL <=10 [id number] 04:54:00 Test Item Value Reference Range Interpretation Comments AMMONIA (BEAKER) (test code = 348) 144 mol/L 18-72 H IMMUNOGLOBULIN G (IGG)2019-10-06 04:54:00 Test Item Value Reference Range Interpretation Comments IMMUNOGLOBULIN G (IGG) (BEAKER) 679 mg/dL 540-1,822 (test code = 427) IRON, TIBC, % SAT. (WITHOUT FERRITIN)2019-10-06 04:54:00 Test Item Value Reference Range Interpretation Comments IRON (BEAKER) (test code = 547) 57.0 ug/dL 40.0-160.0 TOTAL IRON BINDING CAPACITY 308 ug/dL 250-450 (BEAKER) (test code = 769) IRON % SATURATION (2) (BEAKER) 19 % 20-55 L (test code = 2590) BLOOD GAS, [id number] 04:53:00 Test Item Value Reference Range Interpretation Comments PH ARTERIAL (BEAKER) (test code 7.34 7.35-7.45 L = 383) PCO2 ARTERIAL (BEAKER) (test 27 mmHg 35-45 L code = 384) PO2 ARTERIAL (BEAKER) (test code 73 mmHg 80-90 L = 385) O2 SATURATION ARTERIAL (BEAKER) 93.9 % 96.0-97.0 L (test code = 386) HCO3 ARTERIAL (BEAKER) (test 14 mmol/L 21-29 L code = 388) BASE EXCESS ARTERIAL (BEAKER) -10.5 mmol/L -2.0-3.0 L (test code = 387) PATIENT TEMPERATURE (BEAKER) 37.5 C (test code = 1818) FIO2 (BEAKER) (test code = 1819) 30.0 % CBC W/PLT COUNT & AUTO [id number] 04:53:00 Test Item Value Reference Range Interpretation Comments WHITE BLOOD CELL COUNT (BEAKER) 27.8 K/ L 3.5-10.5 H (test code = 775) RED BLOOD CELL COUNT (BEAKER) 3.10 M/ L 3.93-5.22 L (test code = 761) HEMOGLOBIN (BEAKER) (test code = 8.0 GM/DL 11.2-15.7 L 410) HEMATOCRIT (BEAKER) (test code = 24.2 % 34.1-44.9 L 411) MEAN CORPUSCULAR VOLUME (BEAKER) 78.1 fL 79.4-94.8 L (test code = 753) MEAN CORPUSCULAR HEMOGLOBIN 25.8 pg 25.6-32.2 (BEAKER) (test code = 751) MEAN CORPUSCULAR HEMOGLOBIN CONC 33.1 GM/DL 32.2-35.5 (BEAKER) (test code = 752) RED CELL DISTRIBUTION WIDTH 16.7 % 11.7-14.4 H (BEAKER) (test code = 412) PLATELET COUNT (BEAKER) (test 189 K/CU MM 150-450 code = 756) MEAN PLATELET VOLUME (BEAKER) 11.0 fL 9.4-12.3 (test code = 754) NUCLEATED RED BLOOD CELLS 0 /100 WBC 0-0 (BEAKER) (test code = 413) NEUTROPHILS RELATIVE PERCENT 86 % (BEAKER) (test code = 429) LYMPHOCYTES RELATIVE PERCENT 5 % (BEAKER) (test code = 430) MONOCYTES RELATIVE PERCENT 6 % (BEAKER) (test code = 431) EOSINOPHILS RELATIVE PERCENT 0 % (BEAKER) (test code = 432) BASOPHILS RELATIVE PERCENT 0 % (BEAKER) (test code = 437) NEUTROPHILS ABSOLUTE COUNT 23.73 K/ L 1.56-6.13 H (BEAKER) (test code = 670) LYMPHOCYTES ABSOLUTE COUNT 1.32 K/ L 1.18-3.74 (BEAKER) (test code = 414) MONOCYTES ABSOLUTE COUNT (BEAKER) 1.68 K/ L 0.24-0.36 H (test code = 415) EOSINOPHILS ABSOLUTE COUNT 0.00 K/ L 0.04-0.36 L (BEAKER) (test code = 416) BASOPHILS ABSOLUTE COUNT (BEAKER) 0.04 K/ L 0.01-0.08 (test code = 417) IMMATURE GRANULOCYTES-RELATIVE 4 % 0-1 H PERCENT (BEAKER) (test code = 2801) CALCIUM, [id number] 04:51:00 Test Item Value Reference Range Interpretation Comments CALCIUM IONIZED (BEAKER) (test 1.12 mmol/L 1.12-1.27 code = 698) PH, BLOOD (BEAKER) (test code = 7.35 1810) PROTHROMBIN [id number] 04:43:00 Test Item Value Reference Range Interpretation Comments PROTIME (BEAKER) (test code = 30.3 seconds 11.9-14.2 H 759) INR (BEAKER) (test code = 370) 3.1 <=5.9 Effective 04/25/2019: PT Reference Range ChangeNew: 11.9-14.2 Previous: 11.7- 14.7RECOMMENDED COUMADIN/WARFARIN INR THERAPY RANGESSTANDARD DOSE: 2.0-3.0 Includes: PROPHYLAXIS for venous thrombosis, systemic embolization; TREATMENT for venous thrombosis and/or pulmonary embolus.HIGH RISK: Target INR is2.5-3.5 for patients wiht mechanical heart valves.[id number] 04:43:00 Test Item Value Reference Range Interpretation Comments FIBRINOGEN LEVEL (BEAKER) (test 265 mg/dl 225-434 code = 658) [id number] 04:43:00 Test Item Value Reference Range Interpretation Comments PROTIME (BEAKER) (test code = 30.3 seconds 11.9-14.2 H 759) INR (BEAKER) (test code = 370) 3.1 <=5.9 PARTIAL THROMBOPLASTIN TIME 33.7 seconds 22.5-36.0 (JASON) (test code = 760) Effective 04/25/2019: PT Reference Range ChangeNew: 11.9-14.2 Previous: 11.7- 14.7RECOMMENDED COUMADIN/WARFARIN INR THERAPY RANGESSTANDARD DOSE: 2.0-3.0 Includes: PROPHYLAXIS for venous thrombosis, systemic embolization; TREATMENT for venous thrombosis and/or pulmonary embolus.HIGH RISK: Target INR is2.5-3.5 for patients wiht mechanical heart valves.ACUTE HEPATITIS [id number] 06:15:00 Test Item Value Reference Range Interpretation Comments AB HEPATITIS A IGM Negative Negative (test code = HAVMAB) AG HEPATITIS B Negative Negative SURFACE (test code = HBSAG) AB HEPATITIS B CORE Negative Negative IGM (test code = HBCMAB) AB HEPATITIS C (test <0.1 0.0-0.9 INFCE R esult Units: s/co code = HCVAB) ratio N egative: < 0.8 Indeterminate: 0.8 - 0.9 Positiv e: > 0.9 The CDC rec ommends that a positive HCV antibody result be followed up wit h a HCV Nucleic Acid Amplification t est (313027).Perfor med At: [facility] [id number] [place], [place] [id number] kris Gould MD [phone] HIV 1 2 ANTIBODY [id number] 06:15:00 Test Item Value Reference Range Interpretation Comments AB HIV 1 2 (test code = NON REACTIVE SCREEN NONREACTIVE [id number]) AG HIV1 P24 (test code = NON REACTIVE P24 NONREACTIVE [id number]) - CT ABD PELVIS W/[id number] 12:57:00 Name: GINA MARIE [facility] : 1965 Age/S: 53 / F [id number] Unit #: [id number] Loc: [place] [address] Phys: Bryan Orta MD Acct: [id number] Dis Date: Status: ADM IN PHONE #: [phone] Exam Date: 03/09/2019 1200 FAX #: Reason: abd pain EXAMS: CPT: [id number] CT ABD PELVIS W/CONT 15588 LOCATION: T18 EXAM: CT ABDOMEN AND PELVIS [...] in appearance. Adrenal glands and pancreas are normal. Gallbladder is unremarkable. No biliary distention. Portal vasculature [...] Moderate atherosclerotic disease of the abdominal aorta. El ectronically Signed by Ziyad Blanco on 03/09/2019 at 1257 Reported and signed by: Donavon Blanco M.D. CC: Lou Sharp MD; Bryan Orta MD Technologist:Luis Moore, RT(R)(CT); .. CTDI: DLP: Trnscb Date/Time: 03/09/2019 (1257) t.SDR.[email or web address] Orig Print D/T: S: 03/09/2019 (1300) CTDI: DLP: PAGE 1 Signed ReportBASI METABOLIC [id number] 07:37:00 Test Item Value Reference Range Interpretation Comments SODIUM (test code = NA) 136 mmol/L 134-147 N POTASSIUM (test code = 3.3 mmol/L 3.4-5.0 L K) CHLORIDE (test code = 107 mmol/L 100-108 N CL) CARBON DIOXIDE (test 19 mmol/L 21-32 L code = CO2) ANION GAP (test code = 10.0 GAP calc 4.0-15.0 N GAP) GLUCOSE (test code = 86 MG/DL 70-110 N GLU) BLOOD UREA NITROGEN 14 MG/DL 7-18 N (test code = BUN) GLOMERULAR FILTRATION >=60 max estimate >60 RATE (test code = GFR) estGFR CREATININE (test code = 0.9 MG/DL 0.6-1.0 N CREAT) CALCIUM (test code = CA) 8.7 MG/DL 8.5-10.1 N T4 [id number] 07:37:00 Test Item Value Reference Range Interpretation Comments T4 FREE (test code = T4F) 0.70 NG/DL 0.89-1.76 L THYROID STIMULATING [id number] 07:37:00 Test Item Value Reference Range Interpretation Comments THYROID STIMULATING HORMONE 1.540 mcIU/ML 0.340-4.820 N (test code = TSH) ACUTE HEPATITIS [id number] 07:33:00 Test Item Value Reference Range Interpretation Comments AB HEPATITIS A IGM (test code = HAVMAB) AG HEPATITIS B SURFACE (test code = SCREEN NEGATIVE HBSAG) AB HEPATITIS B CORE IGM (test code = HBCMAB) AB HEPATITIS C (test code = HCVAB) RATIO <0.8 HIV 1 2 ANTIBODY [id number] 07:33:00 Test Item Value Reference Range Interpretation Comments AB HIV 1 2 (test code = NON REACTIVE SCREEN NONREACTIVE [id number]) AG HIV1 P24 (test code = NON REACTIVE P24 NONREACTIVE [id number]) GLYCOSYLATED HEMOGLOBIN [id number] 07:26:00 Test Item Value Reference Range Interpretation Comments GLYCOSYLATED HEMOGLOBIN (HA1C) 5.8 % A1C 4.2-6.3 N (test code = GLYHGB) ESTIMATED AVERAGE GLUCOSE (test 120 MG/DLest code = EAG) CBC W/AUTO [id number] 07:21:00 Test Item Value Reference Range Interpretation Comments WHITE BLOOD CELL (test code = 10.3 K/mm3 3.5-11.0 N WBC) RED BLOOD CELL (test code = RBC) 3.88 M/mm3 4.70-6.10 L HEMOGLOBIN (test code = HGB) 10.3 G/DL 10.4-14.9 L HEMATOCRIT (test code = HCT) 30.3 % 31.5-44.1 L MEAN CELL VOLUME (test code = 78.1 Fl 84.5-98.6 L MCV) MEAN CELL HGB (test code = MCH) 26.5 pg 27.0-34.2 L MEAN CELL HGB CONCETRATION (test 34.0 G/DL 31.5-34.0 N code = MCHC) RED CELL DISTRIBUTION WIDTH (test 16.8 SD 11.5-14.5 H code = RDW) PLATELET COUNT (test code = PLT) 370.0 K/mm3 150-450 N MEAN PLATELET VOLUME (test code = 9.70 fL 7.0-10.5 N MPV) NEUTROPHIL % (test code = NT%) 58.7 % 40-76 LYMPHOCYTE % (test code = LY%) 28.2 % 20.5-51.1 N MONOCYTE % (test code = MO%) 11.2 % 1.7-9.3 H EOSINOPHIL % (test code = EO%) 1.6 % 0.0-6.0 N BASOPHIL % (test code = BA%) 0.3 % 0.0-2.0 N NEUTROPHIL # (test code = NT#) 6.05 K/mm3 1.8-7.6 N LYMPHOCYTE # (test code = LY#) 2.9 K/mm3 0.6-3.2 N MONOCYTE # (test code = MO#) 1.2 K/mm3 0.3-1.1 H EOSINOPHIL # (test code = EO#) 0.2 K/mm3 0.0-0.4 N BASOPHIL # (test code = BA#) 0.0 K/mm3 0.0-0.1 N MANUAL DIFF REQUIRED (test code = NO DIFF/SCN CRITERIA MDIFF) - CT HEAD/BRAIN W/O [id number] 19:39:00 Name: GINA MARIE [facility] : 1965 Age/S: 53 / F [address] Unit #: [id number] Loc: [place] [address] Phys: Maria Morel MD Acct: [id number] Dis Date: Status: ADM IN PHONE #: [phone] Exam Date: 03/08/2019 4502 FAX #: Reason: near syn cope EXAMS: CPT: [id number] CT HEAD/BRAIN W/O CONT 94971 CT head History: near syncope Comparison: None [...] PAGE 1 Signed ReportDRUGS OF ABUSE SCREEN [id number] 19:12:00 Test Item Value Reference Range Interpretation Comments URN COCAINE (test code = NEGATIVE SCcutoff <300 NG/ML COCAURN) URN CANNABINOIDS (test code NEGATIVE SCcutoff <50 NG/ML = CANNABURN) URN AMPHETAMINE (test code NEGATIVE SCcutoff <1000 NG/ML = AMPHETURN) URN BARBITURATE (test code NEGATIVE SCcutoff <200 NG/ML = BARBITURN) URN BENZODIAZEPINE (test NEGATIVE SCcutoff <200 NG/ML code = BENZOURN) URN OPIATES (test code = NEGATIVE SCcutoff <2000 NG/ML OPIATURN) URN PHENCYCLIDINE (PCP) NEGATIVE SCcutoff <25 NG/ML (test code = PHENCURN) URN METHADONE (test code = NEGATIVE SCcutoff <300 NG/ML METHAURN) COMPREHENSIVE METABOLIC [id number] 17:26:00 Test Item Value Reference Range Interpretation Comments SODIUM (test code = NA) 133 mmol/L 134-147 L POTASSIUM (test code = 3.7 mmol/L 3.4-5.0 N K) CHLORIDE (test code = 107 mmol/L 100-108 N CL) CARBON DIOXIDE (test 19 mmol/L 21-32 L code = CO2) ANION GAP (test code = 7.0 GAP calc 4.0-15.0 N GAP) GLUCOSE (test code = 83 MG/DL 70-110 N GLU) BLOOD UREA NITROGEN 13 MG/DL 7-18 N (test code = BUN) GLOMERULAR FILTRATION >=60 max estimate >60 RATE (test code = GFR) estGFR CREATININE (test code = 0.8 MG/DL 0.6-1.0 N CREAT) TOTAL PROTEIN (test code 6.7 G/DL 6.4-8.2 N = PROT) ALBUMIN (test code = 3.0 G/DL 3.4-5.0 L ALB) GLOBULIN (test code = 3.7 GM/dL GLOB) ALBUMIN/GLOBULIN RATIO 0.8 RATIO 1.2-2.2 L (test code = A/G) CALCIUM (test code = CA) 8.3 MG/DL 8.5-10.1 L BILIRUBIN TOTAL (test 0.30 MG/DL 0.2-1.2 N code = BILT) SGOT/AST (test code = 41 Unit/L 15-37 H AST) SGPT/ALT (test code = 65 Unit/L 12-78 N ALT) ALKALINE PHOSPHATASE 103 Unit/L 45-117 N TOTAL (test code = ALKP) [id number] 17:26:00 Test Item Value Reference Range Interpretation Comments MAGNESIUM (test code = MAG) 1.9 MG/DL 1.8-2.4 N [id number] 17:26:00 Test Item Value Reference Range Interpretation Comments ALCOHOL (test code = ALC) < 3 MG/DL 0-10 N COMPREHENSIVE METABOLIC [id number] 17:21:00 Test Item Value Reference Range Interpretation Comments SODIUM (test code = NA) 133 mmol/L 134-147 L POTASSIUM (test code = K) 3.7 mmol/L 3.4-5.0 N CHLORIDE (test code = CL) 107 mmol/L 100-108 N CARBON DIOXIDE (test code = CO2) 19 mmol/L 21-32 L ANION GAP (test code = GAP) 7.0 GAP calc 4.0-15.0 N GLUCOSE (test code = GLU) 83 MG/DL 70-110 N BLOOD UREA NITROGEN (test code = 13 MG/DL 7-18 N BUN) GLOMERULAR FILTRATION RATE (test estGFR >60 code = GFR) CREATININE (test code = CREAT) MG/DL 0.6-1.0 TOTAL PROTEIN (test code = PROT) G/DL 6.4-8.2 ALBUMIN (test code = ALB) G/DL 3.4-5.0 GLOBULIN (test code = GLOB) GM/dL ALBUMIN/GLOBULIN RATIO (test RATIO 1.2-2.2 code = A/G) CALCIUM (test code = CA) 8.3 MG/DL 8.5-10.1 L BILIRUBIN TOTAL (test code = MG/DL 0.2-1.2 BILT) SGOT/AST (test code = AST) Unit/L 15-37 SGPT/ALT (test code = ALT) Unit/L 12-78 ALKALINE PHOSPHATASE TOTAL (test Unit/L 45-117 code = ALKP) [id number] 17:21:00 Test Item Value Reference Range Interpretation Comments MAGNESIUM (test code = MAG) MG/DL 1.8-2.4 [id number] 17:21:00 Test Item Value Reference Range Interpretation Comments ALCOHOL (test code = ALC) MG/DL 0-10 CBC W/AUTO [id number] 17:08:00 Test Item Value Reference Range Interpretation Comments WHITE BLOOD CELL (test code = 10.5 K/mm3 3.5-11.0 N WBC) RED BLOOD CELL (test code = RBC) 4.13 M/mm3 4.70-6.10 L HEMOGLOBIN (test code = HGB) 11.0 G/DL 10.4-14.9 N HEMATOCRIT (test code = HCT) 32.7 % 31.5-44.1 N MEAN CELL VOLUME (test code = 79.2 Fl 84.5-98.6 L MCV) MEAN CELL HGB (test code = MCH) 26.6 pg 27.0-34.2 L MEAN CELL HGB CONCETRATION (test 33.6 G/DL 31.5-34.0 N code = MCHC) RED CELL DISTRIBUTION WIDTH (test 16.5 SD 11.5-14.5 H code = RDW) PLATELET COUNT (test code = PLT) 467.0 K/mm3 150-450 H MEAN PLATELET VOLUME (test code = 9.20 fL 7.0-10.5 N MPV) NEUTROPHIL % (test code = NT%) 67.6 % 40-76 N LYMPHOCYTE % (test code = LY%) 21.3 % 20.5-51.1 N MONOCYTE % (test code = MO%) 10.2 % 1.7-9.3 H EOSINOPHIL % (test code = EO%) 0.5 % 0.0-6.0 N BASOPHIL % (test code = BA%) 0.4 % 0.0-2.0 N NEUTROPHIL # (test code = NT#) 7.10 K/mm3 1.8-7.6 N LYMPHOCYTE # (test code = LY#) 2.2 K/mm3 0.6-3.2 N MONOCYTE # (test code = MO#) 1.1 K/mm3 0.3-1.1 N EOSINOPHIL # (test code = EO#) 0.1 K/mm3 0.0-0.4 N BASOPHIL # (test code = BA#) 0.0 K/mm3 0.0-0.1 N MANUAL DIFF REQUIRED (test code = NO DIFF/SCN CRITERIA MDIFF) - XR CHEST 1 [id number] 16:33:00 Name: GINA MARIE [facility] : 1965 Age/S: 53 / F [address] Unit #: [id number] Loc: [place] [address] Phys: Maria Morel MD Acct: [id number] Dis Date: Status: PRE ER PHONE #: [phone] Exam Date: 03/08/2019 1627 FAX #: Reason: near syncope EXAMS: CPT: [id number] XR CHEST 1 V 69084 Fluoro Time: DAP (Gy m2): Air Kerma (mGy): LOCATION: T18 EXAM: CHEST 1 VIEW INDICATION: near syncope COMPARISON: Chest x-ray July 02, 2014 TECHNIQUE: AP chest radiograph. FINDINGS: Lungs are clear bilaterally without effusion. Heart and mediastinum are normal in size and contour. Intrathecal leads terminate in the mid thoracic spine. Bones and peripheral soft tissues are intact. IMPRESSION: Lungs are clear. No acute abnormality. at 1633 Reported and signed by: Donavon Blanco M.D. CC: Lou Sharp MD; Maria Morel MD PAGE 1 Signed Report Name: GINA MARIE : 1965 Age/S: 53 / F [address] Unit #: [id number] Loc: [place] [address] Phys: Maria Morel MD Acct: [id number] Dis Date: Status: PRE ER PHONE #: [phone] Exam Date: 03/08/2019 1620 FAX #: Reason: near syncope EXAMS: CPT: [id number] XR CHEST 1 V 22004 Fluoro Time: DAP (Gy m2): Air Kerma (mGy): <Continued>Technologist: Nanette Gordon RT(R)(CT) Trnscb Date/Time: 03/08/2019 (5955) Mac.JP19 Orig Print D/T: S: 03/08/2019 (6323) PAGE 2 Signed Report
[2021-04-02] MEDS ORDERED: NA CHLORIDE 0.9% 1,000 ML ONE (05:16)
[2021-04-02] MEDS ORDERED: ONDANSETRON 4 MG/2 ML VIAL ONE (05:16)
[2021-04-02] MEDS ORDERED: DIAZEPAM 10 MG/2 ML INJ SYRINGE ONE (06:42)
[2021-04-02 07:19] LABS: Absolute Lymphocytes (CBC) 3.5 K/uL (0.7-4.9); Basophils % 0.2 % (0-1.3); Hematocrit 34.3 % (36.0-45.0); Lymphocytes % 23.3 % (15.3-44.8); MPV 7.9 fL (7.6-11.3); Protime INR 1.03
[2021-04-02 07:31] LABS: ALT/SGPT 19 U/L (12-78); AST/SGOT 23 U/L (15-37); Albumin 3.7 g/dL (3.4-5.0); Alkaline Phosphatase 105 U/L (45-117); BUN Blood Urea Nitrogen 22 mg/dL (7-18); Bicarbonate 23 mmol/L (21-32); Bilirubin Direct 0.1 mg/dL (0-0.2); Bilirubin Total 0.3 mg/dL (0.2-1.0); Glucose Level 115 mg/dL (74-106); Magnesium 2.2 mg/dL (1.8-2.4); NT PRO-BNP 1828 pg/mL (<125); Potassium 3.9 mmol/L (3.5-5.1); Protein, Total 7.3 g/dL (6.4-8.2); Sodium Level 126 mmol/L (136-145); Troponin (Emerg Dept Use Only) < 0.02 ng/mL (0.0-0.045)
--- NOTE | 2021-04-02 08:05 | EDPHYS ---
Physician Documentation [facility] Name: Pratibha Jennings Age: 55 yrs Sex: Female : 1965 Arrival Date: 04/02/2021 Time: 04:26 Bed 15 Private MD: DIANN Physician Baldemar Browne HPI: 04/02 05:49 This 55 yrs old Female presents to ER via Ambulatory with complaints of ma2 Nausea/Vomiting, High Blood Pressure, Headache, Sweating. 05:49 Onset: The symptoms/episode began/occurred gradually, 1 day(s) ago. Associated signs ma2 and symptoms: Pertinent negatives: anorexia, constipation, fever, flatulence. Severity of symptoms: At their worst the symptoms were mild in the emergency department the symptoms are unchanged. The patient has experienced similar episodes in the past. Historical: - Allergies: 04:53 Iodine; topical; iw 04:53 Latex, Natural Rubber; iw - PMHx: 04:53 ADD/ADHD; Back pain; Chronic pain; Degenerative disc disease; Hyperlipidemia; iw Hypertension; - PSHx: 04:53 back surgery X 5; wrist X 3; shoulder; iw - Immunization history:: Adult Immunizations up to date, Client reports receiving the 1st dose of the Covid vaccine. - Social history:: Smoking status: Patient reports the use of cigarette tobacco products, smokes one-half pack cigarettes per day. - Family history:: not pertinent. ROS: 05:49 Constitutional: Negative for fever, chills, and weight loss. ma2 05:49 All other systems are negative. Exam: 05:49 Constitutional: This is a well developed, well nourished patient who is awake, alert, ma2 and in no acute distress. Head/Face: Normocephalic, atraumatic. Eyes: Pupils equal round and reactive to light, extra-ocular motions intact. Lids and lashes normal. Conjunctiva and sclera are non-icteric and not injected. Cornea within normal limits. Periorbital areas with no swelling, redness, or edema. ENT: Nares patent. No nasal discharge, no septal abnormalities noted. Tympanic membranes are normal and external auditory canals are clear. Oropharynx with no redness, swelling, or masses, exudates, or evidence of obstruction, uvula midline. Mucous membranes moist. Neck: Trachea midline, no thyromegaly or masses palpated, and no cervical lymphadenopathy. Supple, full range of motion without nuchal rigidity, or vertebral point tenderness. No Meningismus. Chest/axilla: Normal chest wall appearance and motion. Nontender with no deformity. No lesions are appreciated. Cardiovascular: Regular rate and rhythm with a normal S1 and S2. No gallops, murmurs, or rubs. Normal PMI, no JVD. No pulse deficits. Respiratory: Lungs have equal breath sounds bilaterally, clear to auscultation and percussion. No rales, rhonchi or wheezes noted. No increased work of breathing, no retractions or nasal flaring. Abdomen/GI: Soft, non-tender, with normal bowel sounds. No distension or tympany. No guarding or rebound. No evidence of tenderness throughout. Skin: Warm, dry with normal turgor. Normal color with no rashes, no lesions, and no evidence of cellulitis. MS/ Extremity: Pulses equal, no cyanosis. Neurovascular intact. Full, normal range of motion. Neuro: Awake and alert, GCS 15, oriented to person, place, time, and situation. Cranial nerves II-XII grossly intact. Motor strength 5/5 in all extremities. Sensory grossly intact. Cerebellar exam normal. Normal gait. Vital Signs: 04:48 BP 151 / 101; Pulse 58; Resp 20 S; Temp 96.5(TE); Pulse Ox 97% on R/A; Weight 55.79 kg; iw Height 5 ft. 4 in. (162.56 cm); 05:33 BP 138 / 81; Pulse 52; Resp 12 S; Pulse Ox 100% on R/A; bb 06:19 BP 134 / 77; Pulse 60; Resp 16; Pulse Ox 96% on R/A; ad5 08:10 BP 168 / 80; Pulse 71; Pulse Ox 99% ; ap3 04:48 Body Mass Index 21.11 (55.79 kg, 162.56 cm) iw MDM: 04:56 Patient medically screened. ma2 05:49 Differential diagnosis: Nonspecific abd pain, gastritis, viral gastroenteritis, ma2 gastroenteritis. 04/02 04:45 Order name: Basic Metabolic Panel la2 04/02 04:45 Order name: CBC with Diff [facility] 04/02 04:45 Order name: LFT's; Complete Time: 07:59 ma2 04/02 04:45 Order name: Magnesium; Complete Time: 07:59 ma2 04/02 04:45 Order name: NT PRO-BNP; Complete Time: 07:59 ma2 04/02 04:45 Order name: PT-INR; Complete Time: 07:59 ma2 04/02 04:45 Order name: Troponin (emerg Dept Use Only); Complete Time: 07:59 ma2 04/02 04:45 Order name: XRAY Chest (1 view) ma2 04/02 04:46 Order name: CT Head Brain wo Cont ma2 04/02 04:46 Order name: Basic Metabolic Panel; Complete Time: 07:59 EDMS 04/02 06:24 Order name: SARS-COV-2 RT PCR; Complete Time: 06:25 EDMS 04/02 07:23 Order name: CBC Smear Scan EDMS 04/02 08:27 Order name: Urine Dipstick-Ancillary EDMS 04/02 04:45 Order name: EKG; Complete Time: 04:46 ma2 04/02 04:45 Order name: Cardiac monitoring; Complete Time: 05:25 ma2 04/02 04:45 Order name: EKG - Nurse/Tech; Complete Time: 05:25 ma2 04/02 04:46 Order name: IV Saline Lock; Complete Time: 05:25 ma2 04/02 04:46 Order name: Labs collected and sent; Complete Time: 05:25 ma2 04/02 04:46 Order name: O2 Per Protocol; Complete Time: 05:25 ma2 04/02 04:46 Order name: O2 Sat Monitoring; Complete Time: 05:25 ma2 04/02 04:46 Order name: Urine Dipstick-Ancillary (obtain specimen); Complete Time: 08:29 ma2 Administered Medications: 05:15 Drug: Zofran (Ondansetron) 4 mg Route: IVP; Site: right wrist; ad5 06:18 Follow up: Response: No adverse reaction; Nausea is decreased ad5 05:15 Drug: NS 0.9% 1000 ml Route: IV; Rate: 125 ml/hr; Site: right wrist; ad5 05:38 CANCELLED (hemodynamic parameters): cloNIDine 0.1 mg PO once bb 05:54 CANCELLED (/na): morphine 4 mg IVP once; RASS on ADMIN: Combtv4, Very Agttd3, Agttd2, ma2 Rstlss1, AlertClm0, Drwsy-1, Lt Sdtn-2, Mod Sdtn-3, Dp Sdtn-4, UnArsble-5 06:30 Drug: Valium (diazepam) 5 mg Route: IVP; Site: right wrist; ad5 08:05 Follow up: Response: No adverse reaction; Pain is decreased ap3 08:29 Drug: NS 0.9% 500 ml Route: IV; Rate: bolus; Site: right antecubital; ap3 08:29 Follow up: Response: No adverse reaction; IV Status: Completed infusion ap3 Disposition: 04/02/21 08:04 Discharged to Home. Impression: Vomiting, Essential (primary) hypertension, Hypo-osmolality and hyponatremia. - Condition is Stable. - Discharge Instructions: Hypertension, Nausea and Vomiting, Adult, Hypertension, Qatp-tf-Yswa, Hyponatremia, Qqyu-op-Lcrn, Aspirin and Your Heart, Managing Your Hypertension. - Prescriptions for Norvasc 5 mg Oral Tablet - take 1 tablet by ORAL route once daily; 30 tablet. Zofran 4 mg Oral Tablet - take 1 tablet by ORAL route every 12 hours As needed; 20 tablet. - Medication Reconciliation Form, Thank You Letter, Antibiotic Education, Prescription Opioid Use form. - Follow up: Edil Grace MD; When: 2 - 3 days; Reason: Recheck today's complaints, Continuance of care, Re-evaluation by your physician. Follow up: Von Chaves MD; When: 2 - 3 days; Reason: Recheck today's complaints, Continuance of care, Re-evaluation by your physician. - Problem is new. - Symptoms have improved. Signatures: Dispatcher [employer] EDMS Baldemar Browne MD MD cha Williams, Irene, ANGELA RN iw Brianna Florentino MD MD ma2 Prokisch, Amanda, RN RN ap3 Dez Montanez Brenda RN bb Corrections: (The following items were deleted from the chart) 05:38 05:21 cloNIDine 0.1 mg PO once ordered. ewa corado 05:45 04:57 CORONAVIRUS+MR.LAB.BRZ ordered. EDLA EDMS 05:54 05:52 morphine 4 mg IVP once; RASS on ADMIN: Combtv4, Very Agttd3, Agttd2, Rstlss1, ma2 AlertClm0, Drwsy-1, Lt Sdtn-2, Mod Sdtn-3, Dp Sdtn-4, UnArsble-5 ordered. enid2 08:43 08:04 04/02/2021 08:04 Discharged to Home. Impression: Vomiting; Essential (primary) ap3 hypertension; Hypo-osmolality and hyponatremia. Condition is Stable. Prescriptions for Reglan 10 mg Oral Tablet - take 1 tablet by ORAL route every 6 hours . take 30 minutes before meals and at bedtime; 100 tablet, Norvasc 5 mg Oral Tablet - take 1 tablet by ORAL route once daily; 30 tablet, Propranolol 10 mg Oral Tablet - take 1 tablet by ORAL route every 6 hours; 100 tablet. and Forms are Medication Reconciliation Form, Thank You Letter, Antibiotic Education, Prescription Opioid Use. Follow up: Edil Grace; When: 2 - 3 days; Reason: Recheck today's complaints, Continuance of care, Re-evaluation by your physician. Follow up: Von Chaves; When: 2 - 3 days; Reason: Recheck today's complaints, Continuance of care, Re-evaluation by your physician. Problem is new. Symptoms have improved. samira
--- NOTE | 2021-04-02 08:05 | ER ---
Nurse's Notes [facility] Name: Pratibha Jennings Age: 55 yrs Sex: Female : 1965 Arrival Date: 04/02/2021 Time: 04:26 Bed 15 Private MD: Diagnosis: Vomiting;Essential (primary) hypertension;Hypo-osmolality and hyponatremia Presentation: 04/02 04:48 Chief complaint: Spouse and/or significant other states: over last couple days her BP iw has been very high, takes propranolol and amlodipine, not helping, feeling overheated, nauseous, also has a cough, feels exhausted, has not been able to sleep, no vomiting but very nauseous , no fever. Coronavirus screen: cough unrelated to allergies, fatigue, headache, shortness of breath, Client presents with at least one sign or symptom that may indicate coronavirus-19. Standard/surgical mask placed on the client. Provider contacted for isolation considerations. Ebola Screen: Patient negative for fever greater than or equal to 101.5 degrees Fahrenheit, and additional compatible Ebola Virus Disease symptoms Patient denies exposure to infectious person. Patient denies travel to an Ebola-affected area in the 21 days before illness onset. No symptoms or risks identified at this time. Initial Sepsis Screen: Does the patient meet any 2 criteria? No. Patient's initial sepsis screen is negative. Does the patient have a suspected source of infection? No. Patient's initial sepsis screen is negative. Risk Assessment: Do you want to hurt yourself or someone else? Patient reports no desire to harm self or others. Onset of symptoms was March 30, 2021. 04:48 Method Of Arrival: Ambulatory iw 04:48 Acuity: NUSRAT 3 iw Historical: - Allergies: 04:53 Iodine; topical; iw 04:53 Latex, Natural Rubber; iw - PMHx: 04:53 ADD/ADHD; Back pain; Chronic pain; Degenerative disc disease; Hyperlipidemia; iw Hypertension; - PSHx: 04:53 back surgery X 5; wrist X 3; shoulder; iw - Immunization history:: Adult Immunizations up to date, Client reports receiving the 1st dose of the Covid vaccine. - Social history:: Smoking status: Patient reports the use of cigarette tobacco products, smokes one-half pack cigarettes per day. - Family history:: not pertinent. Screenin:00 Abuse screen: Denies threats or abuse. Nutritional screening: No deficits noted. bb Tuberculosis screening: No symptoms or risk factors identified. Fall Risk None identified. Assessment: 05:00 General: Appears in no apparent distress. slender, Behavior is cooperative, anxious. bb Pain: Complains of pain in abdomen. Neuro: Level of Consciousness is awake, alert, obeys commands, Oriented to person, place, time, situation. Cardiovascular: Heart tones present Capillary refill < 3 seconds Edema is absent. Rhythm is sinus rhythm. Respiratory: Respiratory effort is even, unlabored, Respiratory pattern is regular, Breath sounds are clear bilaterally. GI: Abdomen is non-distended, Bowel sounds present X 4 quads. Abdomen is tender to palpation X 4 quads. Derm: Skin is clammy, Skin is pink, Skin temperature is cool. Musculoskeletal: Circulation, motion, and sensation intact. 06:00 Reassessment: No changes from previously documented assessment. Patient and/or family ad5 updated on plan of care and expected duration. Pain level reassessed. pt c/o back pain, chronic for pt, aware. 07:16 Reassessment: Pt report to receiving RN, questions/concerns addressed. Pt resting ad5 comfortably in stretcher, S.O. at bedside. NAD noted upon transfer of care. 08:07 Reassessment: No changes from previously documented assessment. Assisted patient to ap3 restroom. Patient denies pain at this time. Patient states symptoms have improved. Vital Signs: 04:48 BP 151 / 101; Pulse 58; Resp 20 S; Temp 96.5(TE); Pulse Ox 97% on R/A; Weight 55.79 kg; iw Height 5 ft. 4 in. (162.56 cm); 05:33 BP 138 / 81; Pulse 52; Resp 12 S; Pulse Ox 100% on R/A; bb 06:19 BP 134 / 77; Pulse 60; Resp 16; Pulse Ox 96% on R/A; ad5 08:10 BP 168 / 80; Pulse 71; Pulse Ox 99% ; ap3 04:48 Body Mass Index 21.11 (55.79 kg, 162.56 cm) iw ED Course: 04:26 Patient arrived in ED. bp1 04:52 Triage completed. iw 04:53 Arm band placed on. iw 04:56 Brianna Florentino MD is Attending Physician. ma2 05:00 Patient has correct armband on for positive identification. Placed in gown. Bed in low bb position. Call light in reach. Side rails up X 1. Adult w/ patient. compliance monitor on. Pulse ox on. NIBP on. 05:22 XRAY Chest (1 view) In Process Unspecified. EDMS 05:23 Dez Montanez is Primary Nurse. ad5 05:30 Inserted saline lock: 20 gauge in right wrist, using aseptic technique. ad5 05:30 Initial lab(s) drawn, by me, sent to lab. ad5 05:32 CT Head Brain wo Cont In Process Unspecified. EDMS 06:19 No provider procedures requiring assistance completed. ad5 07:17 Attending Physician role handed off by Brianna Florentino MD samira 07:17 Baldemar Browne MD is Attending Physician. samira 08:03 Edil Grace MD is Referral Physician. samira 08:03 Von Chaves MD is Referral Physician. samira 08:34 intact, bleeding controlled, Pressure dressing applied. ap3 Administered Medications: 05:15 Drug: Zofran (Ondansetron) 4 mg Route: IVP; Site: right wrist; ad5 06:18 Follow up: Response: No adverse reaction; Nausea is decreased ad5 05:15 Drug: NS 0.9% 1000 ml Route: IV; Rate: 125 ml/hr; Site: right wrist; ad5 05:38 CANCELLED (hemodynamic parameters): cloNIDine 0.1 mg PO once bb 05:54 CANCELLED (/na): morphine 4 mg IVP once; RASS on ADMIN: Combtv4, Very Agttd3, Agttd2, ma2 Rstlss1, AlertClm0, Drwsy-1, Lt Sdtn-2, Mod Sdtn-3, Dp Sdtn-4, UnArsble-5 06:30 Drug: Valium (diazepam) 5 mg Route: IVP; Site: right wrist; ad5 08:05 Follow up: Response: No adverse reaction; Pain is decreased ap3 08:29 Drug: NS 0.9% 500 ml Route: IV; Rate: bolus; Site: right antecubital; ap3 08:29 Follow up: Response: No adverse reaction; IV Status: Completed infusion ap3 Outcome: 08:04 Discharge ordered by . samira 08:34 Discharged to home ambulatory, with family. ap3 08:34 Condition: stable 08:34 Discharge instructions given to patient, family, Instructed on discharge instructions, follow up and referral plans. medication usage, Demonstrated understanding of instructions, follow-up care, medications, Prescriptions given X 2. 08:43 Patient left the ED. ap3 Signatures: Dispatcher [employer] EDMS Baldemar Browne MD MD cha Ballard, Brenda, RN RN bb Williams, Irene, RN RN iw Alzahri, Mohammad, MD MD ma2 Felicia Wu RN RN ap3 Kendra Steve Andrea ad5
[2021-04-02 08:27] LABS: Urine Blood Negative (Negative); Urine Glucose Negative (Negative); Urine Protein 3+ (Negative); Urine Specific Gravity 1.025 (1.005-1.030); Urine pH 6.5 (5.0-7.0)
[2021-04-02 08:40] LABS: Anisocytosis 1+; Blood Morphology Comment NOTED (NOT SEEN); Hypochromasia 1+; Platelet Estimate INCR; Platelets, Giant PRESENT; Poikilocytosis SLIGHT; White Blood Cell Scan OK (OK)
[2021-04-02 08:51] VITALS: TEMP 96.5
[2021-04-02 08:55] VITALS: BP 168/80; O2SAT 99
--- NOTE | 2021-04-02 09:12 | RAD REPORT ---
EXAM DESCRIPTION: RAD - Chest Single View - 04/02/2021 5:22 am CLINICAL HISTORY: CONGESTION Chest pain. COMPARISON: Chest Pa And Lat (2 Views) dated 10/21/2019; Chest Single View dated 10/20/2019; Chest S reynaldo View dated 10/05/2019; Chest Single View dated 10/05/2019 FINDINGS: Portable technique limits examination quality. The lungs are grossly clear. The heart is normal in size. No displaced fractures. IMPRESSION: No acute intrathoracic process suspected.
--- NOTE | 2021-04-02 11:27 | RAD REPORT ---
EXAM DESCRIPTION: CT Abdomen and Pelvis Without Intravenous Contrast CLINICAL HISTORY: The patient is 33 years old and is Female; ABD PAIN TECHNIQUE: Axial computed tomography images of the abdomen and pelvis without intravenous contrast. Sagittal and coronal reformatted images were created and reviewed. This CT exam was performed usi ng one or more of the following dose reduction techniques: automated exposure control, adjustment o f the mA and/or kV according to patient size, and/or use of iterative reconstruction technique. COMPARISON: No relevant prior studies available. FINDINGS: Lung bases: Unremarkable. No mass. No consolidation. ABDOMEN: Liver: Unremarkable. Gallbladder and bile ducts: Distended gallbladder. Suspect faint sludge or noncalcified stones. No ductal dilation. Pancreas: Unremarkable. No ductal dilation. Spleen: Unremarkable. No splenomegaly. Adrenals: Unremarkable. No mass. Kidneys and ureters: Bilateral nephrolithiasis. There is a large calculus in the right renal pel vis measuring 30 x 15 x 27 mm in size. No hydronephrosis. No distal ureter stones visualized. Stomach and bowel: No bowel dilatation or obstruction. No bowel wall thickening. No gastric wall thickening. PELVIS: Appendix: The visualized appendix is normal. No pericecal inflammation to suggest acute appendic itis. Bladder: Bladder is empty. No stones. Reproductive: 1.6 cm left ovarian cyst. ABDOMEN and PELVIS: Intraperitoneal space: Unremarkable. No free air. No significant fluid collection. Bones/joints: Vertebral Schmorl's nodes. No acute fracture visualized. No dislocation. Soft tissues: Unremarkable. Vasculature: Unremarkable. No abdominal aortic aneurysm. Lymph nodes: No pathologically enlarged lymph nodes. Tubes, lines and devices: Intrauterine device. IMPRESSION: 1. Bilateral nephrolithiasis. There is a large calculus in the right renal pelvis ramila uring 30 x 15 x 27 mm in size. No hydronephrosis. 2. Distended gallbladder. Suspect faint sludge or noncalcified stones. 3. 1.6 cm left ovarian cyst. No follow-up imaging is recommended. Reference: J Am Kenzie Radiol 2013;[id number] Electronically signed by: Shirin Eldridge MD 04/02/2021 4:12 AM CDT Due to temporary technical issues with the PACS/Fluency reporting system, reports are being signed by the in house radiologist without review as a courtesy to ensure prompt reporting. The interpreting r adiologist is fully responsible for the content of the report.
== END 2021-04-02 08:43 | disposition home or self-care (01) ==
LOC: ER 04:23
DX: E87.1 Hypo-osmolality and hyponatremia (principal); I10 Essential (primary) hypertension; Z20.822 Contact with and (suspected) exposure to COVID-19; F17.210 Nicotine dependence, cigarettes, uncomplicated; Z91.040 Latex allergy status; Z91.048 Other nonmedicinal substance allergy status
CPT/HCPCS: 93005; 85025; 80048; 36415; 83735; 85610; 80076; 81003; 84484; 83880; 70450; 71045; 96375; 96374; 99284; U0003; J3360; J7030; J2405

== ENCOUNTER 2021-04-26 16:21 | Emergency (ER) | payer BC ==
--- OUTSIDE RECORDS SUMMARY | 2021-04-26 16:26 | XMS REPORT | Continuity of Care Document ---
:1965 Author Organization [facility] t Address [address] [place] [address] Care Team Providers Name Role Phone Mary Chaves MD Primary Care Physician Abran Ortega Attending Clinician EULOGIO Attending Clinician Unavailable PRANAV RODRIGUEZ Attending Clinician Unavailable PRANAV RODRIGUEZ Admitting Clinician Unavailable Payers Payer Name Policy Type Policy Effective Date Expiration Date Sour ce Number BCBSBCBS CHOICE [id number] 2016 [facility] PPO/FEDERAL 00:00:00 Rastafarian EMPL [id number] 2016-Presen tPPO Problems Condition Condition Condition Status Onset Resolution Last Treating Co mments Source Name Details Category Date Date Treatment Clinician Date LEFT Diagnosis Active 2020-2021-04-08 Mem oria SHOULDER 4-23 16:26:00 l PAIN, LEFT 12:00: [place] WRIST SHOULDER 00 SPLINT PAIN, WRIST SPLINT Active 03/20/2021 [facility] EAS [facility] PAD PAD Disease Active 2018-11 [facility]ake (periphera (periphera 2-10 Me thodi l artery l artery 00:00: st disease) disease) 00 Stenosis Stenosis Disease Active 2018-11 [place] of carotid of carotid 2-10 Me thodi artery artery 00:00: st 00 Pulmonary Pulmonary Disease Active 2018-[address] [facility] hypertensi hypertensi 1-10 Ebony kes - [facility] Acute Acute Disease Active 2018-[address] [facility] [address] blood loss blood loss 1-10 Ebony kes - anemia anemia 00:00: Medical 00 Center Tobacco Tobacco Disease Active 2019- [facility] abuse [facility] Aspiration Aspiration Disease Active 2019- [facility] pneumonia pneumonia - [facility] Other Other Disease Active 2019- [facility] shock shock - [facility] - [facility]: Medical 00 [place] Acute Acute Disease Active 2019- [facility] liver liver - [facility] - failure failure 00:00: Medical with with 00 Center hepatic hepatic coma coma Acute Acute Disease Active 2019- [facility] metabolic metabolic - [facility] - encephalop encephalop 00:00: Me dical athy athy 00 Center Acute Acute Disease Active 2019- [facility] hypoxemic hypoxemic - [facility] - respirator respirator 00:00: Me dical y failure y failure 00 Cent er CATHERINE (acute CATHERINE (acute Disease Active 2019- [facility] kidney kidney 12-06 [facility] - injury) injury) 00:00: Medical 00 [place] High anion High anion Disease Active 2019- [facility] gap gap - [facility] - metabolic metabolic 00:00: Medi willie acidosis acidosis 00 Center Alcohol Alcohol Disease Active 2019- [facility] use use 12-06 [facility] - 00:[facility]: Medical 00 [place] Gastroesop Gastroesop Disease Active 2018-0 H karolyn hageal hageal 2-23 Methodi reflux reflux 00:00: st disease disease 00 Cavitary Cavitary Disease Active 2018-0 [place] 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 00:00: st 00 Hemoptysis Hemoptysis Disease Active 2018-0 [place] 2-07 Methodi 00:00: st 00 History of History of Disease Active 2018-0 [place] tobacco tobacco 2-07 Methodi use use 00:00: st 00 Chronic Chronic Disease Active 2018-0 [facility] obstructiv obstructiv 2-07 Me thodi e e 00:00: st pulmonary pulmonary 00 disease disease Septic Septic Disease Active 2017- [facility] shock shock 0-29 Methodi 00:00: st 00 Acute Acute Disease Active 2017- [facility] respirator respirator 0-29 Me thodi y failure y failure 00:00: st 00 Hyponatrem Hyponatrem Disease Active 2017- [place] ia ia 0-29 Methodi 00:00: st 00 Elevated Elevated Disease Active 2016-11 [place] troponin troponin 0-29 Method i 00:00: st 00 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:17:26 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 (disorder) Active Problem 04/11/2021 [facility] Carotid Problem Active 2021-04-11 Rao caity bruit 01:17:26 l (finding) Carotid Herm joão bruit (finding) Active Problem 04/11/2021 [facility] Cerebrovas Problem Active 2021-04-11 M emoria cular 01:17:26 l accident [place] (disorder) Cerebrovas cular accident (disorder) Active Problem 04/11/2021 [facility] Cervical Problem Active 2021-04-11 Mem oria radiculopa 01:17:26 l thy Cervical Reece n (disorder) radiculopa thy (disorder) Active Problem 04/11/2021 [facility] Degenerati Problem Active 2021-04-11 M emoria on of 01:17:26 l lumbar [place] interverte Degenerati bral disc on of (disorder) lumbar interverte bral disc (disorder) Active Problem 04/11/2021 [facility] Family Problem Active 2021-04-11 Memor ia history of 01:17:26 l aneurysm Family Reece n of artery history of (situation aneurysm ) of artery (situation ) Active Problem 04/11/2021 [facility] Hyperlipid Problem Active 2021-04-11 M emoria emia 01:17:26 l (disorder) Reece n Hyperlipid emia (disorder) Active Problem 04/11/2021 [facility] Hypertensi Problem Active 2021-04-11 M emoria ve 01:17:26 l disorder, [place] systemic Hypertensi arterial ve (disorder) disorder, systemic arterial (disorder) Active Problem 04/11/2021 [facility] Left Problem Active 2021-04-11 Memor ia carotid 01:17:26 l artery Left [place] stenosis carotid (disorder) artery stenosis (disorder) Active Problem 04/11/2021 [facility] Memory Problem Active 2021-04-11 Memor ia impairment 01:17:26 l (finding) Memory Mary nn impairment (finding) Active Problem 04/11/2021 [facility] Migraine Problem Active 2021-04-11 Mem oria (disorder) 01:17:26 l Migraine Reece n (disorder) Active Problem 04/11/2021 [facility] Muscle Problem Active 2021-04-11 Memor ia weakness 01:17:26 l of upper Muscle Reece n limb weakness (finding) of upper limb (finding) Active Problem 04/11/2021 [facility] Postproced Problem Active 2021-04-11 M emoria ural state 01:17:26 l finding [place] (finding) Postproced ural state finding (finding) Active Problem 04/11/2021 [facility] Allergies, Adverse Reactions, Alerts Allergy [...] blisterin g and rash iodine DA Active [facility] 07-04 Clear 00:00: [place] 00 [facility] iodine iodine Active Memoria topical< topical< l sup>1</s sup>1</s Reece n up> up> Social History Social Habit Start Date Stop Date Quantity Comments Source Cigarettes smoked 2019-11-06 2019-11-06 Mannie Rastafarian current (pack per 00:00:00 00:00:00 day) - Reported Cigarette 2019-11-06 2019-11-06 Mannie Method ist pack-years 00:00:00 00:00:00 Tobacco use and 2019-11-06 2019-11-06 Never used Mannie Crystal ethodist exposure 00:00:00 00:00:00 Alcohol intake 2019-11-06 2019-11-06 Current [facility] thodist 00:00:00 00:00:00 non-drinker of alcohol (finding) Social History 2019-07-18 2019-07-18 Yuliana brar 15:14:03 15:14:03 History of tobacco 2017-08-28 Current smoker Ben calzada Rastafarian use 00:00:00 Sex [birth year] Mannie Crystal ethodist 00:00:00 00:00:00 Smoking Status Start Date Stop Date Source Former smoker 2019-11-06 00:00:00 2019-11-06 00:00:00 Mannie Rastafarian Medications Ordered Filled Start Stop Current Ordering Indication Dosage Frequency Signature Comments Components Source Medication Medication Date Date Medication? 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, Height, 66.818, kg, 12/22/20 14:47:00 OPERATIONS ASSOCIATE, Weight topiramate 2020-0 Yes 50 mg = 1 Me moria 50 mg oral 9-03 tab, PO, l tablet 18:52: BID, # 60 Reece n 00 tab, 3 Refill(s), Pharmacy: [facility] #[id number], 162.56, cm, 07/31/20 13:42:00 CDT, Height, 56.818, kg, 07/31/20 13:42:00 CDT, Weight topiramate 2020-0 Yes 25 mg = 1 Me moria 25 MG Oral 4-15 tab, PO, l Tablet 20:04: BID, # 60 Reece n [Topamax] 00 tab, 2 Refill(s), Pharmacy: [facility] #[id number] Morphine 2020-0 Yes 15 mg, PO, Mem oria 2-25 Q12H, 0 l 19:30: Refill(s) [place] 00 topiramate 2020-0 Yes 25 mg = 1 Me moria 25 MG Oral 2-14 tab, PO, l Tablet 23:50: BID, # 60 Reece n [Topamax] 00 tab, 2 Refill(s), Pharmacy: [facility] #[id number] Aspirin 81 2020-0 Yes 81 mg = 1 Me moria MG Enteric 1-09 tab, PO, l Coated 23:31: Daily, # [place] Tablet 00 90 tab, 3 Refill(s) oxcarbazepi 2020-0 Yes 150 mg = 1 Memoria ne 150 MG 1-09 tab, PO, l Oral Tablet 23:05: Bedtime, # [place] [Trileptal] 00 30 tab, 3 Refill(s), [facility]acy: [id number] atorvastati 2018-11 Yes 40 mg = 1 M emoria n 40 mg 2-11 tab, PO, l oral tablet 23:32: Daily, # Brendon monet 39 30 tab, 2 Refill(s), [id number] dexlansopra 2018-11 Yes 60mg Take 60 mg [...] needed for sleep. gabapentin 2018-11 Yes 600mg [id number] Take 600 Chand (NEURONTIN) 2-10 [id number] mg by M ethodi 600 mg 11:46: 3D mouth 3 st tablet 13 (three) times a day. morPHINE 2018-11 Yes 15mg Q12H Take 15 mg Patrica ston (MSIR) 15 2-10 by mouth Method i MG tablet 11:46: every 12 st 13 (twelve) hours as needed for severe pain. oxyCODone 2018-11 Yes 10mg Q6H Take 10 mg [place] (ROXICODONE 2-10 by mouth Meth pantera ) 10 MG 11:46: every 6 st [...] hours off . gabapentin 2018-11 Yes 600mg [id number] Take [address] (NEURONTIN) 1-18 [id number] mg by L ukes - 600 MG [...] mouth [facility] - [facility] 17:29[facility] topiramate 2018-11 Yes 25mg Q.5D Take [...] - MG tablet 17:29: daily. Medica l Center hydrOXYzine 2018-11 Yes 25mg Q.5D Take [...] n [Topamax] 02 tab, 2 Refill(s), Pharmacy: [facility] #[id number] topiramate 2019-0 Yes 25 mg = 1 Me moria 25 MG Oral 8-21 tab, PO, l Tablet 15:45: Bedtime, # Mary nn [Topamax] 00 30 tab, 2 Refill(s), Pharmacy: [facility] #[id number] atorvastati 2019-0 Yes PO, Daily, Memoria n 8-21 0 l 15:28: Refill(s) Amlodipine 2019-0 Yes PO, Daily, M emoria 821 0 l 15:28: Refill(s) Zanaflex 2019-0 Yes 4 mg, PO, Rao caity 8- Q8H, 0 l 15:00: Refill(s) oxyCODONE 2019-0 Yes 10 mg = 1 Mem oria 10 mg oral 8-21 tab, PO, l tablet, 15:00: Q6H, 0 Refill(s) release gabapentin 2019-0 Yes 600 mg, Rao caity 8-21 PO, TID, 0 l 15:00: Refill(s) Ambien 2019-0 Yes 5 mg, PO, Memori a 8 Bedtime, 0 l 15:00: Refill(s) Lidocaine 2019-0 Yes See Memoria 8 Instructio l 15:00: ns, 5 % Transderma l q12, 0 Refill(s) Protonix 2019-0 Yes 40 mg, PO, Mem oria 8-21 Daily, 0 l 15:00: Refill(s) Ondansetron 2019-0 Yes 4 mg = 1 Me moria 4 MG Oral 8-21 tab, PO, l Tablet 15:00: Q8H, 0 [Zofran] 00 Refill(s) Hydroxyzine 2019-0 Yes 25 mg = 1 M emoria 8-21 tab, PO, l 15:00: Q6H, PRN rash / allergy symptoms, 0 Refill(s) Fluoxetine 2019-0 Yes 60 mg, PO, M emoria 8-21 Daily, 0 l 15:00: Refill(s) atorvastati Yes 1{tbl} Q.5D Take 1 [place] [...] Name Name FLUCELVAX QUAD PF 2017-10-06 Completed Rake 00:00:00 Rastafarian Pneumococcal 2017-10-06 Completed [facility]ake Conjugate 13-Valent 00:00:00 Metho dist Vital Signs Vital Name Observation Time Observation Value Comments Source Systolic (mm Hg) 2021-04-08 14:16:00 Rao rial [place] Diastolic (mm Hg) 2021-04-08 14:16:00 Mem orial [place] Heart Rate 2021-04-08 14:16:00 [facility] [place] Respitory Rate 2021-04-08 14:16:00 Memori al [place] Height 2021-04-08 14:16:00 162.56 cm [facility] [place] [address] Weight 2021-04-08 14:16:00 [facility] [address] BMI Calculated 2021-04-08 14:16:00 Memori al [place] Systolic (mm Hg) 2020-12-22 20:47:00 Rao rial [place] Diastolic (mm Hg) 2020-12-22 20:47:00 Mem orial [place] Height 2020-12-22 20:47:00 162.56 cm [facility] [address] Weight 2020-12-22 20:47:00 [facility] [address] BMI Calculated 2020-12-22 20:47:00 Memori al [place] Systolic (mm Hg) 2020-07-31 18:42:00 Rao rial [place] Diastolic (mm Hg) 2020-07-31 18:42:00 Mem orial [place] Heart Rate 2020-07-31 18:42:00 [facility] [address] Respitory Rate 2020-07-31 18:42:00 Memori al [address] Height 2020-07-31 18:42:00 162.56 cm [facility] [place] Weight 2020-07-31 18:42:00 [facility] [place] BMI Calculated 2020-07-31 18:42:00 Memori al [place] Temperature Oral (F) 2020-07-31 18:42:00 96.9 F [facility] [place] Height 2020-01-22 17:49:00 162.56 cm [facility] [place] Weight 2020-01-22 17:49:00 [facility] [address] BMI Calculated 2020-01-22 17:49:00 Memori al [place] Systolic (mm Hg) 2020-01-22 17:49:00 Rao rial [place] Diastolic (mm Hg) 2020-01-22 17:49:00 Mem orial [place] Heart Rate 2020-01-22 17:49:00 [facility] [place] Respitory Rate 2020-01-22 17:49:00 Memori al [place] Systolic (mm Hg) 2020-01-11 21:53:00 Rao rial [place] Diastolic (mm Hg) 2020-01-11 21:53:00 Mem orial [place] Heart Rate 2020-01-11 21:53:00 [facility] [place] Height 2020-01-11 21:53:00 162.56 cm [facility] [place] Weight 2020-01-11 21:53:00 [facility] [address] BMI Calculated 2020-01-11 21:53:00 Memori al [place] Systolic (mm Hg) 2019-12-06 22:16:00 Rao rial [place] Diastolic (mm Hg) 2019-12-06 22:16:00 Mem orial [place] Heart Rate 2019-12-06 22:16:00 [facility] [address] Respitory Rate 2019-12-06 22:16:00 Memori al [place] Height 2019-12-06 22:16:00 162.56 cm [facility] [place] Weight 2019-12-06 22:16:00 [facility] [place] BMI Calculated 2019-12-06 22:16:00 Memori al [place] Height 2019-11-09 17:41:00 162.56 cm [facility] [address] Weight 2019-11-09 17:41:00 [facility] [place] BMI Calculated 2019-11-09 17:41:00 Memori al [place] Systolic (mm Hg) 2019-09-19 18:12:00 Rao rial [place] Diastolic (mm Hg) 2019-09-19 18:12:00 Mem orial [place] Heart Rate 2019-09-19 18:12:00 [facility] [address] Respitory Rate 2019-09-19 18:12:00 Memori al [place] [address] Height 2019-09-19 18:12:00 162.56 cm [facility] [place] Weight 2019-09-19 18:12:00 [facility] [place] BMI Calculated 2019-09-19 18:12:00 Memori al [place] Systolic (mm Hg) 2019-08-23 19:05:00 Rao rial [place] Diastolic (mm Hg) 2019-08-23 19:05:00 Mem orial [place] Heart Rate 2019-08-23 19:05:00 [facility] [place] [address] Respitory Rate 2019-08-23 19:05:00 Memori al [place] Height 2019-08-23 19:05:00 162.56 cm [facility] [address] Weight 2019-08-23 19:05:00 [facility] [place] BMI Calculated 2019-08-23 19:05:00 Memori al [place] Systolic (mm Hg) 2019-07-18 14:57:00 Rao rial [place] Diastolic (mm Hg) 2019-07-18 14:57:00 Mem orial [place] Heart Rate 2019-07-18 14:57:00 [facility] [place] [address] Respitory Rate 2019-07-18 14:57:00 Memori al [place] Height 2019-07-18 14:57:00 162.56 cm [facility] [place] [address] Weight 2019-07-18 14:57:00 [facility] [place] BMI Calculated 2019-07-18 14:57:00 Memori al [place] Procedures Procedure Date / Time Performed Performing Clinician [facility] Ar[facility] [place] [facility] Planned Activity Planned Date Details Comments Source Future Scheduled 2024-10-[address] [facility] - Test 00:00:00 (procedure) [code = [facility] 62343947] Future Scheduled 2021-06-28 INFLUENZA VACCINE [place] [facility] Test 00:00:00 [code = INFLUENZA VACCINE] Future Scheduled 2020-11-[address] [facility] - Test 00:00:00 (12+) [code = [facility] DEPRESSION SCREENING (12+)] Future Scheduled 2020-07-29 INFLUENZA VACCINE (#1) [facility] Test 00:00:00 [code = INFLUENZA Medical Ce nter VACCINE (#1)] Future Scheduled 2014 BREAST CANCER [facility] Me thodist Test 00:00:00 SCREENING [code = BREAST CANCER SCREENING] Future Scheduled 2014 COLONOSCOPY SCREENING [place] [facility] Test 00:00:00 [code = COLONOSCOPY SCREENING] Future Scheduled 2014 SHINGLES VACCINES (#1) [place] [facility] Test 00:00:00 [code = SHINGLES VACCINES (#1)] Future Scheduled [address] [facility] - Test 00:00:00 malignant neoplasm of [facility] cervix (procedure) [code = 442871054] Future Scheduled 1985 Screening for [facility] thodist Test 00:00:00 malignant neoplasm of cervix (procedure) [code = 423810440] Future Scheduled 1982 Hepatitis C screening [place] [facility] Test 00:00:00 (procedure) [code = 778668806] Future Scheduled 1976 COVID-19 VACCINE (1) Patrica carmelon Rastafarian Test 00:00:00 [code = COVID-19 VACCINE (1)] Future Scheduled [address] [facility] - Test 00:00:00 0-64 YRS (1 of 1 - Medical C enter PPSV23) [code = PNEUMOCOCCAL VACCINE 0-64 YRS (1 of 1 - PPSV23)] Future Scheduled [address] [facility] - Test 00:00:00 [facility] breast (procedure) [code = 904476983] Future Scheduled [address] [facility] - Test 00:00:00 [facility] colon (procedure) [code = 334293797] Encounters Start End Encounter Admission Attending Care Care Encounter Source Date/Time Date/Time Type Type Clinicians Facility Department ID 2021-04-08 2021-04-08 Outpatient JANEE Ortega [id number] 09:00:00 23:59:59 Ab 16 Abran 2020-12-26 2020-12-27 Outpatient JANEE WELLER [id number] 11:32:20 23:59:59 2020-12-22 2020-12-22 Outpatient JANEE Ortega [id number] 14:30:00 23:59:59 Ab 15 Abran 2020-12-04 2020-12-04 Outpatient JANEE Ortega [id number] 13:15:00 13:15:00 Ab 14 Abran 2020-09-30 2020-09-30 Outpatient EULOGIO [facility] [id number] [address] [place] [address] 00:00:00 00:00:00 EZIO Robledo i 2020-07-31 2020-07-31 Outpatient Krell, MHMISCHER MHMISCHER [id number] 13:15:00 23:59:59 Ab 13 Abran 2020-07-29 2020-07-29 Outpatient Krell, MHMISCHER MHMISCHER [id number] 11:15:00 11:15:00 Ab 12 Abran 2020-06-06 2020-06-06 Outpatient Krell, MHMISCHER MHMISCHER [id number] 13:00:00 13:00:00 Ab 11 Abran 2020-03-12 2020-03-12 Outpatient Krejames, MHMISCHER MHMISCHER [id number] 13:45:00 23:59:59 Ab 09 Abran 2020-01-22 2020-01-22 Outpatient Krejames, MHMISCHER MHMISCHER [id number] 11:45:00 23:59:59 Ab 10 Abran 2020-01-11 2020-01-11 Outpatient Krell, MHMISCHER MHMISCHER [id number] 14:15:00 23:59:59 Ab 08 Abran 2020-01-11 2020-01-11 Outpatient Krell, MHMISCHER MHMISCHER [id number] 14:15:00 14:15:00 Ab 07 Abran 2019-12-06 2019-12-06 Outpatient Michellell, MHMISCHER MHMISCHER [id number] 16:00:00 23:59:59 Ab 06 Abran 2019-12-05 2019-12-05 Outpatient Krell, MHMISCHER MHMISCHER [id number] 08:15:00 08:15:00 Ab 05 Abran 2019-11-16 2019-11-16 Outpatient Krell, MHMISCHER MHMISCHER [id number] 13:00:00 13:00:00 Ab 03 Abran 2019-11-09 2019-11-09 Outpatient Krell, MHMISCHER MHMISCHER [id number] 11:30:00 23:59:59 Ab 04 Abran 2019-09-19 2019-09-19 Outpatient JANEE Ortega [facility] [id number] 13:00:00 23:59:59 Ab 02 Abran 2019-08-23 2019-08-23 [id number] 13:30:00 23:59:59 Ab 01 Abran 2019-07-18 2019-07-18 [facility] [id number] 09:15:00 23:59:59 Ab 00 Abran Results Test Description Test Time Test Comments Results Result Comments Source AFB CULTURE + SMEAR 2019-11-27 12:03:00 Test Item Value Reference Range Interpretation Comme nts CULTURE (BEAKER) (test code = 1095) No acid-fast bacilli isolated i n 42 days AFB SMEAR (BEAKER) (test code = 994) No acid fast bacilli seen FUNGUS CULTURE + [id number] 18:46:00 Test Item Value Reference Range Interpretation Comments CULTURE (BEAKER) A 1+ Jo-Ann albicans (test code = 1095) FUNGUS SMEAR No fungi seen (BEAKER) (test code = 1406) MISCELLANEOUS LAB [id number] 07:43:00 Test Item Value Reference Range Interpretation Comments SCAN RESULT (test code = 5299972) CBC W/PLT COUNT & AUTO [id number] 11:31:00 Test Item Value Reference Range Interpretation [...] PERCENT (BEAKER) (test code = 2801) POCT-GLUCOSE [id number] 08:15:00 Test Item Value Reference Range Interpretation Comments POC-GLUCOSE METER 87 mg/dL 70-110 : TESTED A T [facility] 6720 (BEAKER) (test code = [place], 1538) [address]: Truck Jumper/Techni theo ID = [id number] for MICHAEL HarrisonSHANIVon [id number] 08:08:00 Test Item Value Reference Range Interpretation Comments MAGNESIUM (BEAKER) 1.6 mg/dL 1.6-2.6 Specimen slightly (test code = 627) hemolyzed COMPREHENSIVE METABOLIC [id number] 08:08:00 Test Item Value Reference Range Interpretation [...] NOT APPLICABLE FOR DIALYSIS PATIEN TS. POCT-GLUCOSE [id number] 23:32:00 Test Item Value Reference Range Interpretation Comments POC-GLUCOSE METER 98 mg/dL 70-110 : TESTED A T [facility] 6720 (BEAKER) (test code = [place], 1538) 47[address]: Truck Jumper/Techni theo ID = [id number] for PATEL TEJADA POCT-GLUCOSE [id number] 17:52:00 Test Item Value Reference Range Interpretation Comments POC-GLUCOSE METER 88 mg/dL 70-110 : TESTED A T [facility] 6720 (BEAKER) (test code = LIV Dozier [facility], 1538) 45475: Truck Jumper/Techni theo ID = [id number] for DOBB INS, ZAK POCT-GLUCOSE [id number] 11:53:00 Test Item Value Reference Range Interpretation Comments POC-GLUCOSE METER 161 mg/dL 70-110 H : TESTED A T [facility] 6720 (BEAKER) (test code = LIV Dozier [facility], 1538) 19035: Truck Jumper/Techni theo ID = [id number] for DO BBINS, ZAK BRONCHIAL CULTURE + GRAM [id number] 10:38:00 Test Item Value Reference Range Interpretation Comments CULTURE (BEAKER) (test See comment code = 1095) GRAM STAIN RESULT 2+ White blood cells (BEAKER) (test code = seen 1123) GRAM STAIN RESULT No organisms seen (BEAKER) (test code = 558454) 1+ YeastRAD, CHEST, 1 VIEW, NON [id number] 08:59:00Reason for exam:- >endotracheal intubationShould this be [...] Impression:No significant interval change. Signed: Jerrell Silva [facility] Verified Date/Time: 10/14/2019 08:59:12 Reading Location: [facility] Transitional Reading Room [id number] 08:38:00 Test Item Value Reference Range Interpretation Comments MAGNESIUM (BEAKER) 2.0 mg/dL 1.6-2.6 Specimen slightly (test code = 627) hemolyzed COMPREHENSIVE METABOLIC [id number] 08:38:00 Test Item Value Reference Range Interpretation [...] PATIEN TS. CBC W/PLT COUNT & AUTO [id number] 08:23:00 Test Item Value Reference Range Interpretation [...] PERCENT (BEAKER) (test code = 2801) POCT-GLUCOSE [id number] 07:07:00 Test Item Value Reference Range Interpretation Comments POC-GLUCOSE METER 84 mg/dL 70-110 : TESTED A T [facility] 6720 (BEAKER) (test code = [place], [place]38) [id number]: Truck Jumper/Techni theo ID = [id number] for Kamille Magana BLOOD GAS, [id number] 04:38:00 Test Item Value Reference Range Interpretation [...] (test code = 1819) 36.0 % POCT-GLUCOSE [id number] 01:19:00 Test Item Value Reference Range Interpretation Comments POC-GLUCOSE METER 152 mg/dL 70-110 H : TESTED A T [facility] 6720 (BEAKER) (test code = [facility], 153) 30286: Truck Jumper/Techni theo ID = [id number] for Kamille Garcia BLOOD [id number] 19:01:00 Test Item Value Reference Range Interpretation Comments CULTURE (BEAKER) (test No growth in 5 days code = 1095) POCT-GLUCOSE [id number] 18:11:00 Test Item Value Reference Range Interpretation Comments POC-GLUCOSE METER 82 mg/dL 70-110 : TESTED A T [facility] 6720 (BEAKER) (test code = [facility], 1538) [id number]: Truck Jumper/Techni theo ID = [id number] for DOBB INS, ZAK POCT-GLUCOSE [id number] 12:34:00 Test Item Value Reference Range Interpretation Comments POC-GLUCOSE METER 87 mg/dL 70-110 : TESTED A T [facility] 6720 (BEAKER) (test code = [facility], 1538) 61654: Truck Jumper/Techni theo ID = [id number] for SAND ERS, GIDEON CBC W/PLT COUNT & AUTO [id number] 09:13:00 Test Item Value Reference Range Interpretation [...] 0-1 PERCENT (BEAKER) (test code = 2801) [id number] 06:55:00 Test Item Value Reference Range Interpretation Comments MAGNESIUM (BEAKER) (test code = 1.8 mg/dL 1.6-2.6 627) COMPREHENSIVE METABOLIC [id number] 06:55:00 Test Item Value Reference Range Interpretation [...] APPLICABLE FOR DIALYSIS PATIEN TS. BLOOD GAS, [id number] 06:41:00 Test Item Value Reference Range Interpretation [...] 28.0 % RAD, CHEST, 1 VIEW, NON [id number] 04:40:00Reason for exam:->endotracheal intubationShould this be performed [...] 107 mg/dL 70-110 : TESTED A T [facility] 6720 (BEAKER) (test code = [place], [place]38) 70795: Truck Jumper/Techni theo ID = [id number] for MahamedDianna guerra RAD, MANDIBLE, MIN 4 [id number] 17:22:00Reason for exam:->Liver Transplant EvaluationShould this be [...] Villarreal Verified Date/Time: 10/12/2019 17:22:01 Reading Location: [facility] Reading Room POCT-GLUCOSE [id number] 12:42:00 Test Item Value Reference Range Interpretation Comments POC-GLUCOSE METER 119 mg/dL 70-110 H : [facility] (BEAKER) (test code = LVI Dozier [facility], 1538) [address]: Truck 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 CBC W/PLT COUNT & AUTO [id number] 04:18:00 Test Item Value Reference Range Interpretation [...] (BEAKER) (test code = 2801) BLOOD GAS, [id number] 04:17:00 Test Item Value Reference Range Interpretation [...] (test code = 1819) 30.0 % SPIN/CONCENTRATION [id number] 01:15:00 Test Item Value Reference Range Interpretation Comments CONCENTRATION CHARGED (BEAKER) (test Done code = 2657) BODY FLUID CELL COUNT WITH [id number] 18:00:00 Test Item Value Reference Range Interpretation [...] (test code = 2873) EEG AWAKE AND [id number] 17:00:00Reason for exam:->acute encephalopathyShould this be performed at the bedside?->YesDate(s) of EE10/11/2019 DATE OF REPORT: 10/11/2019ACC: [id number] Number: [id number] Location: Inpatient ICUStart time: 10/11/2019 16:09Stop time: 10/11/2019 16:31ICD-10: R41.82 CPT Code: 17301 HISTORY: 54 y.o. female with hypertension, chronic [...] of this report.Jermaine Walton MD, PhDAttending NeurophysiologistCHI [place], [place] SPUTUM CULTURE + GRAM [id number] 15:43:00 Test Item Value Reference Range Interpretation Comments CULTURE (BEAKER) 4+ Normal respiratory (test code = 1095) candy present GRAM STAIN RESULT 2+ White blood cells (BEAKER) (test code = seen 1123) GRAM STAIN RESULT 0-5 epithelial cells (BEAKER) (test code = 75074) GRAM STAIN RESULT 1+ gram positive rods (BEAKER) (test code = 59567) GRAM STAIN RESULT <1+ yeast (BEAKER) (test code = 462272) MISCELLANEOUS LAB [id number] 08:34:00 Test Item Value Reference Range Interpretation Comments SCAN RESULT (test code = 2696650) RAD, CHEST, 1 VIEW, NON [id number] 07:51:00Reason for exam:->endotracheal intubationShould this be performed [...] spinal stimulator hardware.Additional findings: None. Signed: JR Rox, Tyler Spangler Verified Date/Time: 10/11/2019 07:51:10 Reading Location: [facility] Reading Room BLOOD [id number] 07:00:00 Test Item Value Reference Range Interpretation Comments CULTURE (BEAKER) (test No growth in 5 days code = 1095) BLOOD [id number] 07:00:00 Test Item Value Reference Range Interpretation Comments CULTURE (BEAKER) (test No growth in 5 days code = 1095) POCT-GLUCOSE [id number] 05:51:00 Test Item Value Reference Range Interpretation Comments POC-GLUCOSE METER 103 mg/dL 70-110 : TESTED A T [facility] 6720 (BEAKER) (test code = LIV Tasia [facility], 1538) [address]: Truck Jumper/Techni theo ID = [id number] for SHARI BAJWA BLOOD GAS, [id number] 04:55:00 Test Item Value Reference Range Interpretation [...] (BEAKER) (test code = 1819) 40.0 % [id number] 04:46:00 Test Item Value Reference Range Interpretation Comments MAGNESIUM (BEAKER) (test code = 2.2 mg/dL 1.6-2.6 627) COMPREHENSIVE METABOLIC [id number] 04:46:00 Test Item Value Reference Range Interpretation [...] PATIEN TS. CBC W/PLT COUNT & AUTO [id number] 04:11:00 Test Item Value Reference Range Interpretation [...] PERCENT (BEAKER) (test code = 2801) POCT-GLUCOSE [id number] 23:55:00 Test Item Value Reference Range Interpretation Comments POC-GLUCOSE METER 118 mg/dL 70-110 H : TESTED A T [facility] 6720 (BEAKER) (test code = [facility], 1538) [address]: Truck Jumper/Techni theo ID = [id number] for SHARI BAJWA POCT-GLUCOSE [id number] 17:40:00 Test Item Value Reference Range Interpretation Comments POC-GLUCOSE METER 142 mg/dL 70-110 H : TESTED A T [facility] 6720 (JASON) (test code = [facility], 1538) [address]: Truck Jumper/Techni theo ID = [id number] for Gr Jackie yoonara POCT-GLUCOSE [id number] 12:30:00 Test Item Value Reference Range Interpretation Comments POC-GLUCOSE METER 114 mg/dL 70-110 H : TESTED A T [facility] 6720 (JASON) (test code = [facility], 1538) 77[address]: Truck Jumper/Techni theo ID = [id number] for Kirt yoon, Karely HIV-1 PCR, [id number] 11:07:00 Test Item Value Reference Range Interpretation Comments HIV-1 RESULT HIV RNA not detected HIV RNA not detected COMPONENT (JASON) (test code = 2703) This test uses a Real-Time Polymerase Chain Reaction (RT-PCR) methodology to detect a highly conserved region of the HIV-1 gag gene and was performed using the CHRISTINA AmpliPrep/CHRISTINA TaqMan HIV-1 test kit version 2.0 ([employer]Reportable range for this assay is 20 - 10,000,000 copies per mL (1.3 - 7.0 Log copies/mL).[id number] 08:14:00 Test Item Value Reference Range Interpretation Comments T3 TOTAL (JASON) (test code = 656) 36 ng/dL 48-159 L RAD, CHEST, 1 VIEW, NON [id number] 07:15:00Reason for exam:->endotracheal intubationShould this be performed [...] Spangler Verified Date/Time: 10/10/2019 07:15:28 Reading Location: [facility] Reading Room POCT- GLUCOSE [id number] 06:26:00 Test Item Value Reference Range Interpretation Comments POC-GLUCOSE METER 103 mg/dL 70-110 : TESTED A T [facility] 6720 (BEAKER) (test code = LIV [place], 1538) [address]: Truck Jumper/Techni theo ID = [id number] for SUSIE TRUONG [id number] 05:32:00 Test Item Value Reference Range Interpretation [...] within 95-100% range.CBC W/PLT COUNT & AUTO [id number] 05:23:00 Test Item Value Reference Range Interpretation [...] 0-1 PERCENT (BEAKER) (test code = 2801) [id number] 05:10:00 Test Item Value Reference Range Interpretation [...] INR is2.5-3.5 for patients wiht mechanical heart valves.[id number] 05:10:00 Test Item Value Reference Range Interpretation Comments PHOSPHORUS (BEAKER) (test code = 3.3 mg/dL 2.3-4.7 604) [id number] 05:10:00 Test Item Value Reference Range Interpretation Comments MAGNESIUM (BEAKER) (test code = 2.3 mg/dL 1.6-2.6 627) COMPREHENSIVE METABOLIC [id number] 05:10:00 Test Item Value Reference Range Interpretation [...] S NOT APPLICABLE FOR DIALYSIS PATIEN TS. [id number] 05:08:00 Test Item Value Reference Range Interpretation Comments FIBRINOGEN LEVEL (BEAKER) (test 275 mg/dl 225-434 code = 658) PROTHROMBIN TIME/[id number] 05:07:00 Test Item Value Reference Range Interpretation [...] is2.5-3.5 for patients wiht mechanical heart valves.CALCIUM, [id number] 04:59:00 Test Item Value Reference Range Interpretation Comments CALCIUM IONIZED (BEAKER) (test 1.20 mmol/L 1.12-1.27 code = 698) PH, BLOOD (BEAKER) (test code = 7.37 1810) BLOOD GAS, [id number] 04:55:00 Test Item Value Reference Range Interpretation [...] (test code = 1819) 40.0 % POCT-GLUCOSE [id number] 00:46:00 Test Item Value Reference Range Interpretation Comments POC-GLUCOSE METER 90 mg/dL 70-110 : TESTED A T [facility] 6720 (BEAKER) (test code = [place] [place], 1538) [address]: Truck Jumper/Techni theo ID = [id number] for SUSIE LISA MRSA [id number] 19:33:00 Test Item Value Reference Range Interpretation Comments CULTURE (BEAKER) (test code No MRSA isolated = 1095) PROTHROMBIN TIME/[id number] 18:00:00 Test Item Value Reference Range Interpretation [...] INR is2.5-3.5 for patients wiht mechanical heart valves.PT/[id number] 18:00:00 Test Item Value Reference Range Interpretation [...] INR is2.5-3.5 for patients wiht mechanical heart valves.[id number] 17:55:00 Test Item Value Reference Range Interpretation Comments MAGNESIUM (BEAKER) (test code = 1.9 mg/dL 1.6-2.6 627) BASIC METABOLIC [id number] 17:55:00 Test Item Value Reference Range Interpretation [...] APPLICABLE FOR DIALYSIS PATIEN TS. CYTOMEGALOVIRUS ANTIBODY, [id number] 16:41:00 Test Item Value Reference Range Interpretation Comments CYTOMEGALOVIRUS, IGG (BEAKER) Negative Negative, Equivocal (test code = 3429) CMV IgG Result Interpretation: </= 0.8 Al Negative 0.9-1.0 Al Equivocal >/=1.1 Al PositiveCYTOMEGALOVIRUS ANTIBODY, [id number] 16:41:00 Test Item Value Reference Range Interpretation Comments CYTOMEGALOVIRUS IGM ANTIBODY Negative Negative, Equivocal (BEAKER) (test code = 3437) CMV IgM Result Interpretation: </= 0.8 Al Negative 0.9-1.0 Al Equivocal >/= 1.1 Al PositiveEBV ANTIBODY, [id number] 16:41:00 Test Item Value Reference Range Interpretation [...] 107 mg/dL 70-110 : TESTED A T [facility] 6720 (BEAKER) (test code = [place], 1538) [address]: Truck Jumper/Techni theo ID = [id number] for Gr Karely yoon CT, BRAIN, WITHOUT [id number] 14:07:00Patient with decerebrate posturing, r/o herniationFINAL REPORT [...] recommended for further characterization. Signed: Shari Perry [facility] Verified Date/Time: 10/09/2019 14:07:57 SPUTUM CULTURE + GRAM [id number] 12:59:00 Test Item Value Reference Range Interpretation Comments CULTURE (BEAKER) See comment (test code = 1095) GRAM STAIN RESULT 1+ White blood cells (BEAKER) (test code = seen 1123) GRAM STAIN RESULT 0-5 epithelial cells (BEAKER) (test code = 192148) GRAM STAIN RESULT No organisms seen (BEAKER) (test code = 135330) 2+ YeastNo Normal respiratory candy presentPOCT-GLUCOSE [id number] 12:22:00 Test Item Value Reference Range Interpretation Comments POC-GLUCOSE METER 168 mg/dL 70-110 H : TESTED A T [facility] 6720 (BEAKER) (test code = LIV Dozier [place], 1538) [address]: Truck Jumper/Techni theo ID = [id number] for Gr ant, Tieara POCT-GLUCOSE [id number] 10:04:00 Test Item Value Reference Range Interpretation Comments POC-GLUCOSE METER 101 mg/dL 70-110 : TESTED A T [facility] 6720 (BEAKER) (test code = LIV Dozier [place], 1538) [address]: Truck Jumper/Techni theo ID = [id number] for Gr ant, Tieara BILIRUBIN, [id number] 09:44:00 Test Item Value Reference Range Interpretation Comments BILIRUBIN DIRECT (BEAKER) (test 1.5 mg/dL 0.1-0.5 H code = 706) [id number] 07:19:00 Test Item Value Reference Range Interpretation Comments PROCALCITONIN (BEAKER) (test code 1.48 ng/mL <0.05 H = 3036) SEPSIS RISK (ng/mL)Low: 0.05-0.50Intermediate: 0.51-2.00High: >=[id number] 05:26:00 Test Item Value Reference Range Interpretation [...] within 95-100% range.RAD, CHEST, 1 VIEW, NON [id number] 05:16:00Reason for exam:->endotracheal intubationShould this be performed [...] Cummins MDReport Verified Date/Time: 10/09/2019 05:16:08 CALCIUM, [id number] 05:05:00 Test Item Value Reference Range Interpretation Comments CALCIUM IONIZED (BEAKER) (test 1.14 mmol/L 1.12-1.27 code = 698) PH, BLOOD (BEAKER) (test code = 7.49 1810) BLOOD GAS, [id number] 05:04:00 Test Item Value Reference Range Interpretation [...] 40.0 % CBC W/PLT COUNT & AUTO [id number] 04:51:00 Test Item Value Reference Range Interpretation [...] (BEAKER) (test code = 2801) VANCOMYCIN LEVEL, [id number] 04:26:00 Test Item Value Reference Range Interpretation Comments VANCOMYCIN TROUGH (BEAKER) (test 7.0 ug/mL 10.0-20.0 L code = 522) [id number] 04:21:00 Test Item Value Reference Range Interpretation Comments PHOSPHORUS (BEAKER) (test code = 3.2 mg/dL 2.3-4.7 604) [id number] 04:21:00 Test Item Value Reference Range Interpretation Comments MAGNESIUM (BEAKER) (test code = 1.9 mg/dL 1.6-2.6 627) COMPREHENSIVE METABOLIC [id number] 04:21:00 Test Item Value Reference Range Interpretation [...] S NOT APPLICABLE FOR DIALYSIS PATIEN TS. [id number] 04:19:00 Test Item Value Reference Range Interpretation Comments FIBRINOGEN LEVEL (BEAKER) (test 267 mg/dl 225-434 code = 658) [id number] 04:14:00 Test Item Value Reference Range Interpretation [...] is2.5-3.5 for patients wiht mechanical heart valves.PROTHROMBIN TIME/[id number] 04:13:00 Test Item Value Reference Range Interpretation [...] is2.5-3.5 for patients wiht mechanical heart valves.POCT-GLUCOSE [id number] 01:04:00 Test Item Value Reference Range Interpretation Comments POC-GLUCOSE METER 143 mg/dL 70-110 H : TESTED A T [facility] 6720 (BEAKER) (test code = [employer] [facility], 1538) [address]: Truck Jumper/Techni theo ID = [id number] for SUSIE TRUONG POCT-GLUCOSE [id number] 20:20:00 Test Item Value Reference Range Interpretation Comments POC-GLUCOSE METER 145 mg/dL 70-110 H : TESTED A T [facility] 6720 (BEAKER) (test code = LIV [employer] [facility], 1538) [address]77[address]: Truck Jumper/Techni theo ID = [id number] for SUSIE TRUONG POCT-GLUCOSE [id number] 16:43:00 Test Item Value Reference Range Interpretation Comments POC-GLUCOSE METER 164 mg/dL 70-110 H : TESTED [facility] [place] [facility] 6720 (BEAKER) (test code = [place], 1538) [address]: Truck Jumper/Techni theo ID = [id number] for Karely Bautista CMV PCR, [id number] 15:47:00 Test Item Value Reference Range Interpretation [...] and its performance characteristics determined by the [facility] Path ology Department, Section of Molecular Pathology. It has not been cleared or approved by the U.S. Food and Drug Administration (FDA), since FDA approval is not required for clinical use of the test. Validation was done as required by The Clinical Laboratory Improvement Amendments of 1988.[id number] 15:29:00 Test Item Value Reference Range Interpretation Comments PHOSPHORUS (BEAKER) (test code = 3.5 mg/dL 2.3-4.7 604) [id number] 15:29:00 Test Item Value Reference Range Interpretation Comments MAGNESIUM (BEAKER) (test code = 2.1 mg/dL 1.6-2.6 627) [id number] 15:01:00 Test Item Value Reference Range Interpretation Comments PHOSPHORUS (BEAKER) (test code = 2.1 mg/dL 2.3-4.7 L 604) [id number] 15:01:00 Test Item Value Reference Range Interpretation Comments MAGNESIUM (BEAKER) (test code = 2.0 mg/dL 1.6-2.6 627) BASIC METABOLIC [id number] 15:01:00 Test Item Value Reference Range Interpretation [...] APPLICABLE FOR DIALYSIS PATIEN TS. Specimen slightly ictericPT/[id number] 14:53:00 Test Item Value Reference Range Interpretation [...] INR is2.5-3.5 for patients wiht mechanical heart valves.[id number] 14:38:00 Test Item Value Reference Range Interpretation Comments AMMONIA (BEAKER) (test code = 348) 34 mol/L 18-72 RUBELLA ANTIBODY, [id number] 14:20:00 Test Item Value Reference Range Interpretation Comments RUBELLA IGG QUANTITATION (BEAKER) 1.0 IU/mL <8.0 (test code = 572) Rubella IgG Result Interpretation: </= 7.0 IU/mL Negative - Presumed non- immune 8.0 - 9.9 IU/mL Equivocal >= 10.0 IU/mL Positive - Presumed immune VARICELLA ZOSTER ANTIBODY, [id number] 13:49:00 Test Item Value Reference Range Interpretation Comments VARICELLA ZOSTER IGG (AL) (BEAKER) 4.8 (test code = 3197) VARICELLA ZOSTER RESULT INTERPRETATIONS: <=0.8 Al Nonreactive: Presumed non-immune to VZV 0.9-1.0 Al Equivocal >=1.1 Al Reactive: Presumed immune to VZVCRYPTOCOCCAL [id number] 13:33:00 Test Item Value Reference Range Interpretation Comments CRYPTOCOCCAL ANTIGEN, SERUM Negative Negative, Interference (BEAKER) (test code = 1828) FACTOR 5 ACTIVITY (BLEEDING RISK)2019-10-08 13:03:00 Test Item Value Reference Range Interpretation Comments FACTOR V ACTIVITY (BEAKER) (test code = 9.0 % 60.0-150.0 L 665) CBC W/PLT COUNT & AUTO [id number] 12:13:00 Test Item Value Reference Range Interpretation [...] PERCENT (BEAKER) (test code = 2801) POCT-GLUCOSE [id number] 11:22:00 Test Item Value Reference Range Interpretation Comments POC-GLUCOSE METER 184 mg/dL 70-110 H : TESTED [place] [facility] 6720 (BEAKER) (test code = [place], 1538) [address]: Truck Jumper/Techni theo ID = [id number] for Kirt carKarely ANTI-NUCLEAR ANTIBODY (JOSE ARMANDO)2019-10-08 10:44:00 Test Item Value Reference Range Interpretation Comments ANTI-NUCLEAR ANTIBODY (JOSE ARMANDO) (BEAKER) Negative Negative (test code = 418) Test performed by IFA method.Test performed by IFA method.[id number] 09:26:00 Test Item Value Reference Range Interpretation Comments PHOSPHORUS (BEAKER) (test code = 2.9 mg/dL 2.3-4.7 604) [id number] 09:26:00 Test Item Value Reference Range Interpretation Comments MAGNESIUM (BEAKER) (test code = 2.0 mg/dL 1.6-2.6 627) BASIC METABOLIC [id number] 09:26:00 Test Item Value Reference Range Interpretation [...] Specimen slightly ictericRAD, CHEST, 1 VIEW, NON [id number] 09:14:00Reason for exam:->endotracheal intubationShould this be performed [...] Spangler Verified Date/Time: 10/08/2019 09:14:39 Reading Location: [facility] Reading Room D-DIMER 2019-10-08 06:25:00 Test [...] of thrombosis is within 95-100% range. PROTHROMBIN TIME/[id number] 05:32:00 Test Item Value Reference Range Interpretation [...] INR is2.5-3.5 for patients wiht mechanical heart valves.[id number] 05:32:00 Test Item Value Reference Range Interpretation Comments FIBRINOGEN LEVEL (BEAKER) (test 200 mg/dl 225-434 L code = 658) [id number] 05:32:00 Test Item Value Reference Range Interpretation [...] Specimen slightly ictericCBC W/PLT COUNT & AUTO [id number] 05:24:00 Test Item Value Reference Range Interpretation [...] (BEAKER) (test code = 2801) LACTIC ACID, [id number] 05:16:00 Test Item Value Reference Range Interpretation Comments LACTATE BLOOD VENOUS (2) (BEAKER) 1.8 mmol/L 0.5-2.2 (test code = 2872) [id number] 23:51:00 Test Item Value Reference Range Interpretation Comments PHOSPHORUS (BEAKER) (test code = 4.4 mg/dL 2.3-4.7 604) [id number] 23:51:00 Test Item Value Reference Range Interpretation Comments MAGNESIUM (BEAKER) (test code = 2.2 mg/dL 1.6-2.6 627) BASIC METABOLIC [id number] 23:51:00 Test Item Value Reference Range Interpretation [...] DIALYSIS PATIEN TS. Specimen slightly ictericBLOOD GAS, [id number] 23:37:00 Test Item Value Reference Range Interpretation [...] 50.0 % CBC W/PLT COUNT & AUTO [id number] 20:12:00 Test Item Value Reference Range Interpretation [...] PERCENT (BEAKER) (test code = 2801) POCT-GLUCOSE [id number] 20:01:00 Test Item Value Reference Range Interpretation Comments POC-GLUCOSE METER 143 mg/dL 70-110 H : TESTED A T [facility] 6720 (BEAKER) (test code = [facility], 1538) [address]: Truck Jumper/Techni theo ID = [id number] for Liban Arnett BLOOD GAS, [id number] 19:54:00 Test Item Value Reference Range Interpretation [...] (test code = 1819) 24.0 % POCT-GLUCOSE [id number] 19:01:00 Test Item Value Reference Range Interpretation Comments POC-GLUCOSE METER 155 mg/dL 70-110 H : TESTED A T [facility] 6720 (BEAKER) (test code = [facility], 1538) 51463: Truck Jumper/Techni theo ID = [id number] for SA NDERS, GIDEON HEPATOBILIARY [id number] 18:38:00Please do at bedside. Thank you.FINAL REPORT PROCEDURE: HEPATOBILIARY SCAN CPT CODE: 80595 INDICATION: abdominal pain PROTOCOL: 5.3 mCi of [...] JEFFERY ALARCON MD on 10/07/2019 06:38 PMPOCT-GLUCOSE [id number] 16:52:00 Test Item Value Reference Range Interpretation Comments POC-GLUCOSE METER 166 mg/dL 70-110 H : TESTED A T [facility] 6720 (BEAKER) (test code = [place], 1538) [address]: Truck Jumper/Techni theo ID = [id number] for GIDEON NUNEZ PT/[id number] 16:40:00 Test Item Value Reference Range Interpretation [...] INR is2.5-3.5 for patients wiht mechanical heart valves.[id number] 16:40:00 Test Item Value Reference Range Interpretation Comments FIBRINOGEN LEVEL (BEAKER) (test 156 mg/dl 225-434 L code = 658) PROTHROMBIN TIME/[id number] 16:39:00 Test Item Value Reference Range Interpretation [...] INR is2.5-3.5 for patients wiht mechanical heart valves.[id number] 16:36:00 Test Item Value Reference Range Interpretation Comments PHOSPHORUS (BEAKER) (test code = 1.8 mg/dL 2.3-4.7 L 604) [id number] 16:36:00 Test Item Value Reference Range Interpretation Comments MAGNESIUM (BEAKER) (test code = 2.5 mg/dL 1.6-2.6 627) BASIC METABOLIC [id number] 16:36:00 Test Item Value Reference Range Interpretation [...] APPLICABLE FOR DIALYSIS PATIEN TS. BLOOD GAS, [id number] 16:22:00 Test Item Value Reference Range Interpretation [...] 25.0 % CBC W/PLT COUNT & AUTO [id number] 12:44:00 Test Item Value Reference Range Interpretation [...] PERCENT (BEAKER) (test code = 2801) POCT-GLUCOSE [id number] 12:23:00 Test Item Value Reference Range Interpretation Comments POC-GLUCOSE METER 145 mg/dL 70-110 H : TESTED A T [facility] 6720 (BEAKER) (test code = LIV Dozier [facility], 1538) [address]: Truck Jumper/Techni theo ID = [id number] for GIDEON NUNEZ [id number] 12:06:00 Test Item Value Reference Range Interpretation Comments T4 TOTAL (BEAKER) (test code = 895) 4.6 ug/dL 4.9-11.7 L [id number] 10:00:00 Test Item Value Reference Range Interpretation Comments PHOSPHORUS (BEAKER) (test code = 2.8 mg/dL 2.3-4.7 604) [id number] 10:00:00 Test Item Value Reference Range Interpretation Comments MAGNESIUM (BEAKER) (test code = 2.0 mg/dL 1.6-2.6 627) BASIC METABOLIC [id number] 10:00:00 Test Item Value Reference Range Interpretation [...] NOT APPLICABLE FOR DIALYSIS PATIEN TS. POCT-GLUCOSE [id number] 08:15:00 Test Item Value Reference Range Interpretation Comments POC-GLUCOSE METER 174 mg/dL 70-110 H : TESTED A T [facility] 6720 (BEAKER) (test code = [place], 1538) [address]: Truck Jumper/Techni theo ID = [id number] for SA NDERS, GIDEON RAD, CHEST, 1 VIEW, NON [id number] 05:39:00Reason for exam:- >intubatedShould this be performed [...] MDReport Verified Date/Time: 10/07/2019 05:39:22 BLOOD GAS, [id number] 05:29:00 Test Item Value Reference Range Interpretation [...] (BEAKER) (test code = 1819) 40.0 % [id number] 05:07:00 Test Item Value Reference Range Interpretation [...] thrombosis is within 95-100% range. COMPREHENSIVE METABOLIC [id number] 04:59:00 Test Item Value Reference Range Interpretation [...] PATIEN TS. CBC W/PLT COUNT & AUTO [id number] 04:32:00 Test Item Value Reference Range Interpretation [...] H PERCENT (BEAKER) (test code = 2801) [id number] 04:30:00 Test Item Value Reference Range Interpretation Comments PHOSPHORUS (BEAKER) (test code = 3.1 mg/dL 2.3-4.7 604) [id number] 04:30:00 Test Item Value Reference Range Interpretation Comments MAGNESIUM (BEAKER) (test code = 1.8 mg/dL 1.6-2.6 627) POCT-GLUCOSE [id number] 04:25:00 Test Item Value Reference Range Interpretation Comments POC-GLUCOSE METER 126 mg/dL 70-110 H : TESTED A T [facility] 6720 (BEAKER) (test code = [place], 1538) [address]: Truck Jumper/Techni theo ID = [id number] for Liban Arnett [id number] 04:18:00 Test Item Value Reference Range Interpretation Comments FIBRINOGEN LEVEL (BEAKER) (test 173 mg/dl 225-434 L code = 658) [id number] 04:14:00 Test Item Value Reference Range Interpretation [...] for patients wiht mechanical heart valves.LACTIC ACID, [id number] 04:13:00 Test Item Value Reference Range Interpretation Comments LACTATE BLOOD VENOUS (2) (BEAKER) 1.2 mmol/L 0.5-2.2 (test code = 2872) POCT-GLUCOSE [id number] 01:33:00 Test Item Value Reference Range Interpretation Comments POC-GLUCOSE METER 103 mg/dL 70-110 : TESTED A T [facility] 6720 (BEAKER) (test code = [employer] [facility], 1538) [address]: Truck Jumper/Techni theo ID = [id number] for GISELE CUETO HEMOGLOBIN AND [id number] 00:27:00 Test Item Value Reference Range Interpretation Comments HEMOGLOBIN (BEAKER) (test code = 8.6 GM/DL 11.2-15.7 L 410) HEMATOCRIT (BEAKER) (test code = 26.2 % 34.1-44.9 L 411) POCT-GLUCOSE [id number] 22:58:00 Test Item Value Reference Range Interpretation Comments POC-GLUCOSE METER 146 mg/dL 70-110 H : TESTED A T [facility] 6720 (BEAKER) (test code = [employer] [facility], 1538) [address]: Truck Jumper/Techni theo ID = [id number] for GISELE CUETO RAD, CHEST, 1 VIEW, NON [id number] 21:37:00Reason for exam:->line placement, right IJShould this [...] MDReport Verified Date/Time: 10/06/2019 21:37:58 BASI METABOLIC [id number] 20:04:00 Test Item Value Reference Range Interpretation [...] APPLICABLE FOR DIALYSIS PATIEN TS. PROTEIN, RANDOM [id number] 19:50:00 Test Item Value Reference Range Interpretation Comments PROTEIN, URINE (BEAKER) (test code = 83 mg/dL 0-14 H 1569) CREATININE, RANDOM [id number] 19:28:00 Test Item Value Reference Range Interpretation Comments CREATININE URINE (BEAKER) (test 37.6 mg/dL code = 375) Reference Range: No [id number] 19:00:00 Test Item Value Reference Range Interpretation Comments MAGNESIUM (BEAKER) 2.0 mg/dL 1.6-2.6 Specimen slightly (test code = 627) hemolyzed [id number] 19:00:00 Test Item Value Reference Range Interpretation [...] 0-0 (test code = 413) LACTIC ACID, [id number] 18:55:00 Test Item Value Reference Range Interpretation Comments LACTATE BLOOD VENOUS 1.9 mmol/L 0.5-2.2 Specime n slightly (2) (BEAKER) (test hemolyzed code = 2872) VITAMIN B12 AND [id number] 18:36:00 Test Item Value Reference Range Interpretation Comments VITAMIN B12 (BEAKER) (test code = > pg/mL 213-816 H 774) FOLATE (BEAKER) (test code = 362) 17.3 ng/mL >=7.0 BLOOD GAS, [id number] 18:29:00 Test Item Value Reference Range Interpretation [...] code = 1819) 40.0 % BASIC METABOLIC [id number] 17:47:00 Test Item Value Reference Range Interpretation [...] NOT APPLICABLE FOR DIALYSIS PATIEN TS. POCT-GLUCOSE [id number] 17:39:00 Test Item Value Reference Range Interpretation Comments POC-GLUCOSE METER 188 mg/dL 70-110 H : TESTED A T [facility] 6720 (BEAKER) (test code = [place], 1538) [address]: Truck Jumper/Techni theo ID = [id number] for GIDEON NUNEZ LIPID [id number] 17:28:00 Test Item Value Reference Range Interpretation [...] Borderline 130-159 High 160-189 Very High >=190URIC [id number] 17:28:00 Test Item Value Reference Range Interpretation Comments URIC ACID (BEAKER) (test code = 7.3 mg/dL 2.6-7.2 H 773) HEMOGLOBIN [id number] 16:13:00 Test Item Value Reference Range Interpretation Comments HEMOGLOBIN A1C (BEAKER) (test code = 6.0 % 4.3-6.1 368) HEPATITIS A ANTIBODY, [id number] 16:13:00 Test Item Value Reference Range Interpretation Comments HEPATITIS A IGG ANTIBODY (BEAKER) Reactive Nonreactive A (test code = 2797) CARCINOEMBRYONIC ANTIGEN (CEA)2019-10-06 16:08:00 Test Item Value Reference Range Interpretation Comments CARCINOEMBRYONIC ANTIGEN (BEAKER) 23.1 ng/mL 0.0-5.0 H (test code = 685) VITAMIN D, [id number] 16:08:00 Test Item Value Reference Range Interpretation Comments VITAMIN D 25-OH (BEAKER) (test 10.1 ng/mL 6.6-49.9 code = 2764) Effective 09/07/2017: Reference Range ChangeNew: 6.6-49.9 ng/mL Previous: 13.0-47.8 ng/mLRecommended Vitamin D Target Range: 30.0-40.0 ng/mLTRANSFERRIN 2019-10-06 15:52:00 Test Item Value Reference Range Interpretation Comments TRANSFERRIN (JASON) (test code = 218 mg/dL 174-382 541) [id number] 15:09:00 Test Item Value Reference Range Interpretation Comments PHOSPHORUS (JASON) (test code = 1.7 mg/dL 2.3-4.7 L 604) U/S, ABDOMINAL, WITH [id number] 15:01:00Reason for exam:->acute liver injury, ? cholecystitis, [...] MDReport Verified Date/Time: 10/06/2019 15:01:21 Reading Location: [facility] [id number] Ortho Consult Reading Room PREGNANCY SCREEN, [id number] 14:58:00 Test Item Value Reference Range Interpretation Comments TEST URINE (BEAKER) (test Negative code = 583) POCT-GLUCOSE [id number] 12:44:00 Test Item Value Reference Range Interpretation Comments POC-GLUCOSE METER 156 mg/dL 70-110 H : [facility] 6720 (BEAKER) (test code = [place], 1538) [address]: Truck Jumper/Techni theo ID = [id number] for SA NDERS, GIDEON [id number] 12:39:00 Test Item Value Reference Range Interpretation Comments RPR SCREEN (BEAKER) (test code = Nonreactive Nonreactive 420) B-TYPE NATRIURETIC FACTOR (BNP)2019-10-06 11:57:00 Test Item Value Reference Range Interpretation Comments B-TYPE NATRIURETIC PEPTIDE 3996 pg/mL 0-100 H (BEAKER) (test code = 700) [id number] 11:51:00 Test Item Value Reference Range Interpretation Comments MAGNESIUM (BEAKER) (test code = 2.2 mg/dL 1.6-2.6 627) BLOOD GAS, [id number] 11:50:00 Test Item Value Reference Range Interpretation [...] code = 1819) 50.0 % RESPIRATORY PANEL [id number] 11:35:00 Test Item Value Reference Range Interpretation [...] decisions. This sample was tested at the [facility] Molecular Diagnostics Laboratory using the [employer] FilmArray Respiratory Panel. It is FDA cleared and has been verified and approved by the [facility] Molecular Diagnostics Laboratory for clinical use on nasopharyngeal swab specimens.The performance of the FilmArrayRP has not been established in individuals who received influenza vaccine. Recent administration ofa nasal influenza vaccine may cause false positive results for Influenza A and/orInfluenza B.RETICULOCYTE [id number] 11:32:00 Test Item Value Reference Range Interpretation Comments RETICULOCYTE COUNT PCT (AKER) (test 2.1 % 0.5-1.7 H code = 575) KETONE, [id number] 11:30:00 Test Item Value Reference Range Interpretation Comments KETONES, BLOOD (AKER) (test code 0.3 mmol/L <0.4 = 1103) LEGIONELLA ANTIGEN, [id number] 09:37:00 Test Item Value Reference Range Interpretation Comments L. PNEUMOPHILA Negative - see Negative fo r L. SEROGP 1 UR AG comment pneumophila (AKER) (test code serogrou p 1 antigen, = 1156) suggesting no r ecent or current infe ction with this serog roup. Legionellosis c annot be ruled out si nce other serogroup s and species may cau se disease. STREP PNEUMONIAE [id number] 09:37:00 Test Item Value Reference Range Interpretation [...] the detection limit of the test. POCT-GLUCOSE [id number] 08:45:00 Test Item Value Reference Range Interpretation Comments POC-GLUCOSE METER 119 mg/dL 70-110 H : TESTED A T [facility] 6720 (BEAKER) (test code = [place], 1538) [address]: Truck Jumper/Techni theo ID = [id number] for SA NDERS, GIDEON RAD, CHEST, 1 VIEW, NON [id number] 08:37:00Post-intubationReason for exam:- >intubationShould this be performed [...] MDReport Verified Date/Time: 10/06/2019 08:37:13 Reading Location: [address] Consult Reading Room [id number] 07:44:00 Test Item Value Reference Range Interpretation Comments PROCALCITONIN (BEAKER) (test code 0.97 ng/mL <0.05 H = 3036) SEPSIS RISK (ng/mL)Low: 0.05-0.50Intermediate: 0.51-2.00High: >=2.01URINALYSIS W/ REFLEX URINE [id number] 07:15:00 Test Item Value Reference Range Interpretation [...] code = 2795) ALPHA FETOPROTEIN (AFP), TUMOR [id number] 06:49:00 Test Item Value Reference Range Interpretation Comments ALPHA-FETOPROTEIN (BEAKER) (test code < ng/mL <10.0 = 1094) For 1 occurencesHEPATITIS B SURFACE [id number] 06:49:00 Test Item Value Reference Range Interpretation Comments HEPATITIS B SURFACE ANTIBODY < mIU/mL <8.0 (BEAKER) (test code = 647) For 1 occurencesRAPID DRUG SCREEN, [id number] 06:33:00 Test Item Value Reference Range Interpretation [...] situations. Chain of custody not maintained. Some dcjt-lji-fataonw medications, as well as adulterants, may cause inaccurate results. Clinical correlation should be applied. A more comprehensivedrug screen or confirmation of a detected drug may be performed upon request.CREATININE, RANDOM URINE 2019-10-06 06:30:00 Test Item Value Reference Range Interpretation Comments CREATININE URINE (BEAKER) (test 38.0 mg/dL code = 375) Reference Range: No NormalsSODIUM, RANDOM [id number] 06:30:00 Test Item Value Reference Range Interpretation Comments SODIUM URINE (BEAKER) (test code = 51 meq/L 243) Reference Range: No NormalsHEPATITIS B CORE ANTIBODY, [id number] 06:27:00 Test Item Value Reference Range Interpretation Comments HEPATITIS B CORE TOTAL ANTIBODY Nonreactive Nonreactive (BEAKER) (test code = 497) For 1 [id number] 05:50:00 Test Item Value Reference Range Interpretation Comments FERRITIN (BEAKER) (test code = 1588 ng/mL 5-275 H 361) For 1 occurencesACETAMINOPHEN [id number] 05:30:00 Test Item Value Reference Range Interpretation Comments ACETAMINOPHEN LEVEL (BEAKER) (test < ug/mL 10.0-30.0 L code = 344) Therapeutic Range: 10.0-30.0 g/mLToxic Levels: >200.0 g/mLFor 1 [id number]-3-[id number] 05:20:00 Test Item Value Reference Range Interpretation Comments ALPHA-1 ANTITRYPSIN (BEAKER) 266.90 mg/dL 90.00-200.00 H (test code = 502) [id number] 05:17:00 Test Item Value Reference Range Interpretation Comments THYROID STIMULATING HORMONE 0.75 uIU/mL 0.35-4.94 (BEAKER) (test code = 772) HEPATITIS PANEL, [id number] 05:17:00 Test Item Value Reference Range Interpretation Comments HEPATITIS A IGM ANTIBODY (BEAKER) Nonreactive Nonreactive (test code = 498) HEPATITIS B CORE IGM ANTIBODY Nonreactive Nonreactive (BEAKER) (test code = 645) HEPATITIS C ANTIBODY (BEAKER) Nonreactive Nonreactive (test code = 367) HEPATITIS B SURFACE ANTIGEN (2) Nonreactive Nonreactive (BEAKER) (test code = 2585) HIV-1 ANTIGEN WITH HIV-1/2 [id number] 05:17:00 Test Item Value Reference Range Interpretation Comments HIV-1 ANTIGEN WITH HIV 1\T\2 Nonreactive Nonreactive ANTIBODY (2) (BEAKER) (test code = 2586) BASIC METABOLIC [id number] 05:09:00 Test Item Value Reference Range Interpretation [...] APPLICABLE FOR DIALYSIS PATIEN TS. HEPATIC FUNCTION [id number] 05:09:00 Test Item Value Reference Range Interpretation [...] code = > U/L 6-55 H 347) [id number] 05:07:00 Test Item Value Reference Range Interpretation Comments PHOSPHORUS (BEAKER) (test code = 3.6 mg/dL 2.3-4.7 604) [id number] 05:07:00 Test Item Value Reference Range Interpretation [...] H (test code = 364) LACTIC ACID, [id number] 04:58:00 Test Item Value Reference Range Interpretation Comments LACTATE BLOOD ARTERIAL (2) 1.5 mmol/L 0.5-2.2 (BEAKER) (test code = 2874) [id number] 04:56:00 Test Item Value Reference Range Interpretation Comments ETHANOL (BEAKER) (test code = 400) < mg/dL <=10 [id number] 04:54:00 Test Item Value Reference Range Interpretation [...] L (test code = 2590) BLOOD GAS, [id number] 04:53:00 Test Item Value Reference Range Interpretation [...] 30.0 % CBC W/PLT COUNT & AUTO [id number] 04:53:00 Test Item Value Reference Range Interpretation [...] PERCENT (BEAKER) (test code = 2801) CALCIUM, [id number] 04:51:00 Test Item Value Reference Range Interpretation Comments CALCIUM IONIZED (BEAKER) (test 1.12 mmol/L 1.12-1.27 code = 698) PH, BLOOD (BEAKER) (test code = 7.35 1810) PROTHROMBIN [id number] 04:43:00 Test Item Value Reference Range Interpretation [...] INR is2.5-3.5 for patients wiht mechanical heart valves.[id number] 04:43:00 Test Item Value Reference Range Interpretation Comments FIBRINOGEN LEVEL (BEAKER) (test 265 mg/dl 225-434 code = 658) [id number] 04:43:00 Test Item Value Reference Range Interpretation [...] for patients wiht mechanical heart valves.ACUTE HEPATITIS [id number] 06:15:00 Test Item Value Reference Range Interpretation [...] a HCV Nucleic Acid Amplification t est ([id number]).Perfor med At: [facility] [id number] [place], [place] [id number] kris Gould MD [phone] HIV 1 2 ANTIBODY [id number] 06:15:00 Test Item Value Reference Range Interpretation Comments AB HIV 1 2 (test code = NON REACTIVE SCREEN NONREACTIVE RFF24XC) AG HIV1 P24 (test code = NON REACTIVE P24 NONREACTIVE [id number]) - CT ABD PELVIS [id number] 12:57:00 Name: GINA MARIE [facility] : 1965 Age/S: 53 / F [id number] [address] Unit #: [id number] Loc: [place] [address] Phys: Bryan Orta MD Acct: [id number] Dis Date: Status: ADM IN PHONE #: [phone] Exam Date: 03/09/2019 1200 FAX #: Reason: abd pain EXAMS: CPT: [id number] CT ABD PELVIS W/CONT 28648 LOCATION: T18 EXAM: CT ABDOMEN AND PELVIS [...] CTDI: DLP: PAGE 1 Signed ReportBASI METABOLIC [id number] 07:37:00 Test Item Value Reference Range Interpretation [...] = CA) 8.7 MG/DL 8.5-10.1 N T4 [id number] 07:37:00 Test Item Value Reference Range Interpretation Comments T4 FREE (test code = T4F) 0.70 NG/DL 0.89-1.76 L THYROID STIMULATING [id number] 07:37:00 Test Item Value Reference Range Interpretation Comments THYROID STIMULATING HORMONE 1.540 mcIU/ML 0.340-4.820 N (test code = TSH) ACUTE HEPATITIS [id number] 07:33:00 Test Item Value Reference Range Interpretation Comments AB HEPATITIS A IGM (test code = HAVMAB) AG HEPATITIS B SURFACE (test code = SCREEN NEGATIVE HBSAG) AB HEPATITIS B CORE IGM (test code = HBCMAB) AB HEPATITIS C (test code = HCVAB) RATIO <0.8 HIV 1 2 ANTIBODY [id number] 07:33:00 Test Item Value Reference Range Interpretation Comments AB HIV 1 2 (test code = NON REACTIVE SCREEN NONREACTIVE JFP54LY) AG HIV1 P24 (test code = NON REACTIVE P24 NONREACTIVE RHE6L97) GLYCOSYLATED HEMOGLOBIN [id number] 07:26:00 Test Item Value Reference Range Interpretation Comments GLYCOSYLATED HEMOGLOBIN (HA1C) 5.8 % A1C 4.2-6.3 N (test code = GLYHGB) ESTIMATED AVERAGE GLUCOSE (test 120 MG/DLest code = EAG) CBC W/AUTO [id number] 07:21:00 Test Item Value Reference Range Interpretation [...] DIFF/SCN CRITERIA MDIFF) - CT HEAD/BRAIN W/O [id number] 19:39:00 Name: GINA MARIE [facility] : 1965 Age/S: 53 / F [id number] [address] Unit #: [id number] Loc: [place] [address] Phys: Maria Morel MD Acct: [id number] Dis Date: Status: ADM IN PHONE #: [phone] Exam Date: 03/08/2019 0461 FAX #: Reason: near syn cope EXAMS: CPT: [id number] CT HEAD/BRAIN W/O CONT 69397 CT head History: near syncope Comparison: None [...] PAGE 1 Signed ReportDRUGS OF ABUSE SCREEN [id number] 19:12:00 Test Item Value Reference Range Interpretation [...] NEGATIVE SCcutoff <300 NG/ML [place]) COMPREHENSIVE METABOLIC [id number] 17:26:00 Test Item Value Reference Range Interpretation [...] 45-117 N TOTAL (test code = ALKP) [id number] 17:26:00 Test Item Value Reference Range Interpretation Comments MAGNESIUM (test code = MAG) 1.9 MG/DL 1.8-2.4 N [id number] 17:26:00 Test Item Value Reference Range Interpretation Comments ALCOHOL (test code = ALC) < 3 MG/DL 0-10 N COMPREHENSIVE METABOLIC [id number] 17:21:00 Test Item Value Reference Range Interpretation [...] TOTAL (test Unit/L 45-117 code = ALKP) [id number] 17:21:00 Test Item Value Reference Range Interpretation Comments MAGNESIUM (test code = MAG) MG/DL 1.8-2.4 [id number] 17:21:00 Test Item Value Reference Range Interpretation Comments ALCOHOL (test code = ALC) MG/DL 0-10 CBC W/AUTO [id number] 17:08:00 Test Item Value Reference Range Interpretation [...] DIFF/SCN CRITERIA MDIFF) - XR CHEST 1 [id number] 16:33:00 Name: GINA MARIE [facility] : 1965 Age/S: 53 / F [id number] [address] Unit #: [id number] Loc: [place] [address] Phys: Maria Morel MD Acct: [id number] Dis Date: Status: PRE ER PHONE #: [phone] Exam Date: 03/08/2019 1627 FAX #: Reason: near syncope EXAMS: CPT: [id number] XR CHEST 1 V 57634 Fluoro Time: DAP (Gy m2): Air Kerma [...] MARIE : 1965 Age/S: 53 / F [id number] [address] Unit #: [id number] Loc: [place] [address] Phys: Maria Morel MD Acct: [id number] Dis Date: Status: PRE ER PHONE #: [phone] Exam Date: 03/08/2019 1626 FAX #: Reason: near syncope EXAMS: CPT: [id number] XR CHEST 1 V 53237 Fluoro Time: DAP (Gy m2): Air Kerma (mGy): <Continued>Technologist: Nanette Gordon RT(R)(CT) Trnscb Date/Time: 03/08/2019 (1409) Mac.JP19 Orig Print D/T: S: 03/08/2019 (1854) PAGE 2 Signed Report
[2021-04-26] MEDS ORDERED: OXYCODONE *CR* 10 MG TAB PO ONE (18:01)
--- NOTE | 2021-04-26 18:02 | ER ---
Nurse's Notes [facility] Name: Pratibha Jennings Age: 55 yrs Sex: Female : 1965 Arrival Date: 04/26/2021 Time: 16:21 Bed 13 Private MD: Von Chaves C Diagnosis: Chronic pain syndrome;Low back pain-CHRONIC;Pain in left wrist-CHROINC Presentation: 04/26 16:42 Coronavirus screen: Client denies travel out of the [place] in the last 14 days. At this ll1 time, the client does not indicate any symptoms associated with coronavirus-19. Ebola Screen: Patient denies travel to an Ebola-affected area in the 21 days before illness onset. Initial Sepsis Screen: Does the patient meet any 2 criteria? HR > 90 bpm. No. Patient's initial sepsis screen is negative. Does the patient have a suspected source of infection? Yes: Bone or joint infection. Risk Assessment: Do you want to hurt yourself or someone else? Patient reports no desire to harm self or others. Onset of symptoms was April 26, 2021. 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 Did not fall, but caught herself. States her entire body hurts so bad, worse down entire L side. Out of her oxycodone for 4 days, see Dr. Landrum in [place] for pain management. Historical: - Allergies: 16:23 Iodine; topical; ll1 16:23 Latex, Natural Rubber; ll1 - PMHx: 16:23 Back pain; Hyperlipidemia; Degenerative disc disease; Hypertension; Chronic pain; ll1 ADD/ADHD; - PSHx: 16:23 back surgery X 5; wrist X 3; shoulder; ll1 - Immunization history:: Client reports receiving the 2nd dose of the Covid vaccine, Flu vaccine is up to date. - Social history:: Smoking status: Patient reports the use of cigarette tobacco products, smokes one-half pack cigarettes per day. Screenin:40 Abuse screen: Denies threats or abuse. Denies injuries from another. Nutritional ca1 screening: No deficits noted. Tuberculosis screening: No symptoms or risk factors identified. Fall Risk Fall in past 12 months (25 points). Assessment: 16:40 General: Appears in no apparent distress. comfortable, Behavior is calm, cooperative, ca1 appropriate for age. Pain: Complains of pain in all over, back Pain currently is 10 out of 10 on a pain scale. Pain began 4 hours ago. Neuro: Level of Consciousness is awake, alert, obeys commands, Oriented to person, place, time, situation. Derm: Skin is intact, is healthy with good turgor, Skin is pink, warm \T\ dry. Musculoskeletal: Circulation, motion, and sensation intact. Capillary refill < 3 seconds. 17:54 Reassessment: Patient appears in no apparent distress at this time. Patient and/or ca1 family updated on plan of care and expected duration. Pain level reassessed. Patient is alert, oriented x 3, equal unlabored respirations, skin warm/dry/pink. Vital Signs: 16:42 BP 134 / 86; Pulse 100; Resp 18; Temp 98.4; Pulse Ox 100% ; Weight 55.79 kg; Height 5 ll1 ft. 4 in. (162.56 cm); Pain 10/10; 17:54 BP 107 / 78; Pulse 99; Resp 16 S; Pulse Ox 100% on R/A; ca1 16:42 Body Mass Index 21.11 (55.79 kg, 162.56 cm) ll1 ED Course: 16:21 Patient arrived in ED. am4 16:22 Von Chaves MD is Private Physician. am4 16:22 Arm band placed on. ll1 16:33 Julia Pettit, ANGELA is Primary Nurse. ca1 16:40 Patient has correct armband on for positive identification. Bed in low position. Call ca1 light in reach. Side rails up X2. Pulse ox on. NIBP on. Warm blanket given. 16:41 Baldemar Browne MD is Attending Physician. samira 16:41 Patient placed in an exam room, on a stretcher. ll1 16:42 Triage completed. ll1 17:58 Vno Chaves MD is Referral Physician. samira 17:[address] DO is Referral Physician. samira 18:19 No provider procedures requiring assistance completed. Patient did not have IV access ca1 during this emergency room visit. Administered Medications: 17:44 Drug: OxyCONTIN (oxyCODONE) 30 mg {Note: rass 0.} Route: PO; ca1 18:20 Follow up: Response: No adverse reaction; Pain is decreased; RASS: Alert and Calm (0) ca1 18:21 Follow up: Response: No adverse reaction; Pain is decreased; RASS: Alert and Calm (0) ca1 17:50 Drug: Phenergan (promethazine) 12.5 mg Route: IM; Site: right deltoid; ca1 18:20 Follow up: Response: No adverse reaction; RASS: Alert and Calm (0) ca1 18:20 Follow up: Response: No adverse reaction; Pain is decreased; RASS: Alert and Calm (0) ca1 17:54 Drug: morphine 5 mg {Note: rass 0.} Route: IM; Site: right gluteus; ca1 18:20 Follow up: Response: No adverse reaction; Pain is decreased; RASS: Alert and Calm (0) ca1 18:20 Follow up: Response: No adverse reaction; Pain is decreased; RASS: Alert and Calm (0) ca1 Outcome: 18:01 Discharge ordered by MD. hogan 18:19 Discharged to home via wheelchair, with significant other. ca1 18:19 Condition: stable 18:19 Discharge instructions given to patient, Instructed on discharge instructions, follow up and referral plans. Demonstrated understanding of instructions, follow-up care. 18:20 Patient left the ED. ca1 Signatures: Baldemar Browne MD MD cha Acob, Cheryl RN RN ca1 Dania Broderick RN RN ll1 Macie Greene 4
--- NOTE | 2021-04-26 18:02 | EDPHYS ---
Physician Documentation [facility] Name: Pratibha Jennings Age: 55 yrs Sex: Female : 1965 Arrival Date: 04/26/2021 Time: 16:21 Bed 13 Private MD: Von Chaves C ED Physician Baldemar Browne HPI: 04/26 17:45 This 55 yrs old Female presents to ER via Ambulatory with complaints of Fall samira Injury. Historical: - Allergies: 16:23 Iodine; topical; ll1 16:23 Latex, Natural Rubber; ll1 - PMHx: 16:23 Back pain; Hyperlipidemia; Degenerative disc disease; Hypertension; Chronic pain; ll1 ADD/ADHD; - PSHx: 16:23 back surgery X 5; wrist X 3; shoulder; ll1 - Immunization history:: Client reports receiving the 2nd dose of the Covid vaccine, Flu vaccine is up to date. - Social history:: Smoking status: Patient reports the use of cigarette tobacco products, smokes one-half pack cigarettes per day. ROS: 17:47 Constitutional: Negative for fever, chills, and weight loss, Eyes: Negative for injury, samira pain, redness, and discharge, ENT: Negative for injury, pain, and discharge, Neck: Negative for injury, pain, and swelling, Cardiovascular: Negative for chest pain, palpitations, and edema, Respiratory: Negative for shortness of breath, cough, wheezing, and pleuritic chest pain, Abdomen/GI: Negative for abdominal pain, nausea, vomiting, diarrhea, and constipation, : Negative for injury, bleeding, discharge, and swelling, Skin: Negative for injury, rash, and discoloration, Neuro: Negative for headache, weakness, numbness, tingling, and seizure, Psych: Negative for depression, anxiety, suicide ideation, homicidal ideation, and hallucinations, Allergy/Immunology: Negative for hives, rash, and allergies, Endocrine: Negative for neck swelling, polydipsia, polyuria, polyphagia, and marked weight changes, Hematologic/Lymphatic: Negative for swollen nodes, abnormal bleeding, and unusual bruising. 17:47 Back: Positive for decreased range of motion, pain at rest, of the lumbar area. Exam: 17:47 Constitutional: This is a well developed, well nourished patient who is awake, alert, samira and in no acute distress. Head/Face: Normocephalic, atraumatic. Eyes: Pupils equal round and reactive to light, extra-ocular motions intact. Lids and lashes normal. Conjunctiva and sclera are non-icteric and not injected. Cornea within normal limits. Periorbital areas with no swelling, redness, or edema. ENT: Nares patent. No nasal discharge, no septal abnormalities noted. Tympanic membranes are normal and external auditory canals are clear. Oropharynx with no redness, swelling, or masses, exudates, or evidence of obstruction, uvula midline. Mucous membranes moist. Neck: Trachea midline, no thyromegaly or masses palpated, and no cervical lymphadenopathy. Supple, full range of motion without nuchal rigidity, or vertebral point tenderness. No Meningismus. Chest/axilla: Normal chest wall appearance and motion. Nontender with no deformity. No lesions are appreciated. Cardiovascular: Regular rate and rhythm with a normal S1 and S2. No gallops, murmurs, or rubs. Normal PMI, no JVD. No pulse deficits. Respiratory: Lungs have equal breath sounds bilaterally, clear to auscultation and percussion. No rales, rhonchi or wheezes noted. No increased work of breathing, no retractions or nasal flaring. Abdomen/GI: Soft, non-tender, with normal bowel sounds. No distension or tympany. No guarding or rebound. No evidence of tenderness throughout. Female : Normal external genitalia. Skin: Warm, dry with normal turgor. Normal color with no rashes, no lesions, and no evidence of cellulitis. MS/ Extremity: Pulses equal, no cyanosis. Neurovascular intact. Full, normal range of motion. Neuro: Awake and alert, GCS 15, oriented to person, place, time, and situation. Cranial nerves II-XII grossly intact. Motor strength 5/5 in all extremities. Sensory grossly intact. Cerebellar exam normal. Normal gait. Psych: Awake, alert, with orientation to person, place and time. Behavior, mood, and affect are within normal limits. 17:47 Back: pain, that is mild, that is moderate, ROM is painful, normal spinal alignment noted, CVA tenderness, is absent, vertebral tenderness, is not appreciated, muscle spasm, is appreciated in the left low back, left mid back, right mid back and right low back. Vital Signs: 16:42 BP 134 / 86; Pulse 100; Resp 18; Temp 98.4; Pulse Ox 100% ; Weight 55.79 kg; Height 5 ll1 ft. 4 in. (162.56 cm); Pain 10/10; 17:54 BP 107 / 78; Pulse 99; Resp 16 S; Pulse Ox 100% on R/A; ca1 16:42 Body Mass Index 21.11 (55.79 kg, 162.56 cm) ll1 MDM: 16:41 Patient medically screened. samira 17:55 Data reviewed: vital signs, nurses notes. 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 rate is 99 beats/min, rhythm is regular. 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 Administered Medications: 17:44 Drug: OxyCONTIN (oxyCODONE) 30 mg {Note: rass 0.} Route: PO; ca1 18:20 Follow up: Response: No adverse reaction; Pain is decreased; RASS: Alert and Calm (0) ca1 18:21 Follow up: Response: No adverse reaction; Pain is decreased; RASS: Alert and Calm (0) ca1 17:50 Drug: Phenergan (promethazine) 12.5 mg Route: IM; Site: right deltoid; ca1 18:20 Follow up: Response: No adverse reaction; RASS: Alert and Calm (0) ca1 18:20 Follow up: Response: No adverse reaction; Pain is decreased; RASS: Alert and Calm (0) ca1 17:54 Drug: morphine 5 mg {Note: rass 0.} Route: IM; Site: right gluteus; ca1 18:20 Follow up: Response: No adverse reaction; Pain is decreased; RASS: Alert and Calm (0) ca1 18:20 Follow up: Response: No adverse reaction; Pain is decreased; RASS: Alert and Calm (0) ca1 Disposition: 04/26/21 18:01 Discharged to Home. Impression: Chronic pain syndrome, Low back pain - CHRONIC, Pain in left wrist - CHROINC. - Condition is Stable. - Discharge Instructions: Back Pain, Adult, Chronic Back Pain, Chronic Pain, Musculoskeletal Pain, Cryotherapy, [id number], Back Pain, Adult, [id number], Wrist Pain, [id number], Cryotherapy. - Medication Reconciliation Form, Thank You Letter, Antibiotic Education, Prescription Opioid Use form. - Follow up: Von Chaves MD; When: 2 - 3 days; Reason: Recheck today's complaints, Continuance of care, Re-evaluation by your physician. Follow up: Abdirizak Cr DO; When: 2 - 3 days; Reason: Recheck today's complaints, Continuance of care, Re-evaluation by your physician. - Problem is new. - Symptoms have improved. Signatures: Baldemar Browne MD MD cha Acob, Cheryl RN RN ca1 Dania Broderick RN RN ll1 Corrections: (The following items were deleted from the chart) 18:20 18:01 04/26/2021 18:01 Discharged to Home. Impression: Chronic pain syndrome; Low back ca1 pain - CHRONIC; Pain in left wrist - CHROINC. Condition is Stable. Forms are Medication Reconciliation Form, Thank You Letter, Antibiotic Education, Prescription Opioid Use. Follow up: Von Chaves; When: 2 - 3 days; Reason: Recheck today's complaints, Continuance of care, Re-evaluation by your physician. Follow up: Abdirizka Cr; When: 2 - 3 days; Reason: Recheck today's complaints, Continuance of care, Re-evaluation by your physician. Problem is new. Symptoms have improved. samira
[2021-04-26] MEDS ORDERED: PROMETHAZINE INJ 25 MG/ML AMP ONE (18:08)
[2021-04-26] MEDS ORDERED: MORPHINE 4 MG/ML SYR ONE (18:09)
[2021-04-26] MEDS ORDERED: MORPHINE 2 MG/ML SYR ONE (18:09)
[2021-04-26 18:27] VITALS: TEMP 98.4; O2SAT 100
[2021-04-26 18:29] VITALS: BP 107/78
== END 2021-04-26 18:20 | disposition home or self-care (01) ==
LOC: ER 16:21
DX: G89.4 Chronic pain syndrome (principal); M25.532 Pain in left wrist; W19.XXXA Unspecified fall, initial encounter; I10 Essential (primary) hypertension; F17.210 Nicotine dependence, cigarettes, uncomplicated; Z91.040 Latex allergy status; Z91.048 Other nonmedicinal substance allergy status
CPT/HCPCS: 96372; 99283; J2550; J2270

== ENCOUNTER 2021-10-06 19:28 | Emergency (ER) | payer BC ==
[2021-10-06] MEDS ORDERED: ONDANSETRON 4 MG (ODT) TAB ONE (21:16)
[2021-10-06] MEDS ORDERED: MORPHINE 4 MG/ML SYR ONE (21:16)
--- NOTE | 2021-10-06 21:38 | ER ---
Nurse's Notes [facility] Name: Pratibha Jennings Age: 56 yrs Sex: Female : 1965 Arrival Date: 10/06/2021 Time: 19:31 Bed 12 Private MD: Diagnosis: Strain of muscle, fascia and tendon of lower back Presentation: 10/06 19:42 Chief complaint: Patient states: I have been in physical therapy for my left wrist ld1 surgery. During physical therapy I was squeezing a ball and injured my back again. I am in sever back pain. Pt reports being in pain management from Dr. Luis Landrum. Coronavirus screen: At this time, the client does not indicate any symptoms associated with coronavirus-19. Ebola Screen: No symptoms or risks identified at this time. Initial Sepsis Screen: Does the patient meet any 2 criteria? No. Patient's initial sepsis screen is negative. Does the patient have a suspected source of infection? No. Patient's initial sepsis screen is negative. Risk Assessment: Do you want to hurt yourself or someone else? Patient reports no desire to harm self or others. Onset of symptoms was October 06, 2021. 19:42 Method Of Arrival: Wheelchair ld1 19:42 Acuity: NUSRAT 3 ld1 Triage Assessment: 19:47 General: Appears in no apparent distress. uncomfortable, Behavior is cooperative, ld1 appropriate for age, anxious. Pain: Complains of pain in back Pain does not radiate. Pain currently is 9 out of 10 on a pain scale. Quality of pain is described as sharp, shooting, throbbing, Pain began 2-3 days ago. Is continuous. EENT: No signs and/or symptoms were reported regarding the EENT system. Neuro: Level of Consciousness is awake, alert, obeys commands, Oriented to person, place, time, situation, Appropriate for age. Cardiovascular: Capillary refill < 3 seconds Patient's skin is warm and dry. Respiratory: Airway is patent Respiratory effort is even, unlabored, Respiratory pattern is regular, symmetrical. GI: Abdomen is flat, non-distended. : No signs and/or symptoms were reported regarding the genitourinary system. Derm: No signs and/or symptoms reported regarding the dermatologic system. Musculoskeletal: Reports pain in back. Historical: - Allergies: 19:47 Iodine; topical; ld1 19:47 Latex, Natural Rubber; ld1 - Home Meds: 19:47 Ambien 5 mg Oral tab 1 tab once daily [Active]; amlodipine oral [Active]; atorvastatin ld1 Oral [Active]; Fluoxetine Oral [Active]; gabapentin 600 mg Oral tab 1 tab daily [Active]; Hydroxyzine Oral [Active]; lidocaine patch [Active]; morphine 15 mg Oral tab 1 tab every 4 hours [Active]; oxycodone-acetaminophen 10-650 mg Oral tab 1 tab every 6 hours [Active]; tizanidine 4 mg Oral cap 1 cap [Active]; Zofran Oral [Active]; - PMHx: 19:47 ADD/ADHD; Back pain; Chronic pain; Degenerative disc disease; Hyperlipidemia; ld1 Hypertension; - PSHx: 19:47 Left wrist surgery; Disc removal; Left clavicle; Left knee replacement; Right knee ld1 replacement; Spinal surgery; - Immunization history:: Adult Immunizations up to date, Client reports receiving the 2nd dose of the Covid vaccine. - Social history:: Smoking status: Patient reports the use of cigarette tobacco products, smokes one-half pack cigarettes per day, Patient uses alcohol, weekly. Screenin:13 Abuse screen: Denies threats or abuse. Nutritional screening: No deficits noted. ld1 Tuberculosis screening: No symptoms or risk factors identified. Fall Risk None identified. Assessment: 21:11 General: Appears uncomfortable, Behavior is cooperative, anxious. Pain: Complains of ld1 pain in back Pain does not radiate. Pain currently is 9 out of 10 on a pain scale. Quality of pain is described as sharp. Respiratory: Respiratory effort is even, Respiratory pattern is regular. Derm: Skin is intact. 21:53 Reassessment: Patient and/or family updated on plan of care and expected duration. Pain fu level reassessed. Patient is alert, oriented x 3, equal unlabored respirations, skin warm/dry/pink. Patient states feeling better. Vital Signs: 19:42 BP 121 / 109; Pulse 101; Resp 18; Temp 97.7(TE); Pulse Ox 97% on R/A; Weight 54.43 kg; ld1 Height 5 ft. 4 in. (162.56 cm); Pain 9/10; 21:13 BP 145 / 83; Pulse 93; Resp 18; Pulse Ox 100% on R/A; Pain 9/10; ld1 19:42 Body Mass Index 20.60 (54.43 kg, 162.56 cm) ld1 ED Course: 19:31 Patient arrived in ED. ag3 19:37 Triage completed. ld1 19:47 Arm band placed on right wrist. ld1 20:51 Humphrey Simmons PA is PHCP. [facility] 20:51 Anaya Ruvalcaba MD is Attending Physician. [facility] 21:02 Niko Zimmer, ANGELA is Primary Nurse. fu 21:13 Patient has correct armband on for positive identification. Bed in low position. Call ld1 light in reach. Pulse ox on. NIBP on. 22:02 No provider procedures requiring assistance completed. Patient did not have IV access fu during this emergency room visit. Administered Medications: 21:22 Drug: morphine 4 mg Route: IM; Site: left gluteus; ld1 22:01 Follow up: Response: Pain is decreased fu 21:23 Drug: Ondansetron 4 mg Route: PO; ld1 22:01 Follow up: Response: Pain is decreased fu Outcome: 21:37 Discharge ordered by MD. [facility] 22:02 Discharged to home ambulatory. fu 22:02 Condition: good 22:02 Discharge instructions given to patient, Instructed on discharge instructions, follow up and referral plans. Demonstrated understanding of instructions, follow-up care, Prescriptions given X 2. 22:02 Patient left the ED. fu Signatures: Humphrey Simmons PA PA [facility] Niko Zimmer, ANGELA MILLER Sharon Block 3 Layne White RN RN ld1 Corrections: (The following items were deleted from the chart) 19:38 19:35 Chief complaint: Patient states: " I started having pain in the top left side of ld1 my mouth, my tooth is killing me." Pt reports trying to take tylenol to relieve the pain but she is not able to control the pain. ld1 19:38 19:35 Coronavirus screen: At this time, the client does not indicate any symptoms ld1 associated with coronavirus-19. ld1 :38 19:35 Ebola Screen: No symptoms or risks identified at this time. ld1 ld1 19:38 19:35 Initial Sepsis Screen: Does the patient meet any 2 criteria? No. Patient's ld1 initial sepsis screen is negative. Does the patient have a suspected source of infection? No. Patient's initial sepsis screen is negative. [facility] 19:35 Risk Assessment: Do you want to hurt yourself or someone else? Patient reports no ld1 desire to harm self or others. [facility] 19:35 Onset of symptoms was October 06, 2021 [place] [address] 19:35 Method Of Arrival: Ambulatory [place] [address] 19:35 BP 122 / 84; Pulse 73bpm; Resp 18bpm; Pulse Ox 100% RA; Temp 98.1F Oral; 73.94 ld1 kg; Height 5 ft. 1 in.; BMI: 30.8; Pain 8/10; [facility] 19:35 Acuity: NUSRAT 4 ld
--- NOTE | 2021-10-06 21:38 | EDPHYS ---
Physician Documentation [facility] Name: Pratibha Jennings Age: 56 yrs Sex: Female : 1965 Arrival Date: 10/06/2021 Time: 19:31 Bed 12 Private MD: ED Physician Anaya Ruvalcaba HPI: 10/06 21:03 This 56 yrs old Female presents to ER via Wheelchair with complaints of Back jmm Injury. 21:03 The patient presents with pain and an injury. Onset: The symptoms/episode jmm began/occurred acutely, 2 week(s) ago. The pain does not radiate. Associated signs and symptoms: Pertinent negatives: abdominal pain, dysuria, fever, headache, hematuria, incontinence, nausea, numbness, tingling, urinary retention, vomiting, weakness. Modifying factors: The patient symptoms are alleviated by nothing, the patient symptoms are aggravated by any movement. This is a 56-year-old female with history of chronic pain the presents emerged part with complaints of lower back pain which occurred after she was in physical therapy 2 weeks ago. Patient states that she pulled her back and she is also out of her chronic pain medicine. Patient states she is set to see her pain management doctor on .. Historical: - Allergies: 19:47 Iodine; topical; ld1 19:47 Latex, Natural Rubber; ld1 - Home Meds: 19:47 Ambien 5 mg Oral tab 1 tab once daily [Active]; amlodipine oral [Active]; atorvastatin ld1 Oral [Active]; Fluoxetine Oral [Active]; gabapentin 600 mg Oral tab 1 tab daily [Active]; Hydroxyzine Oral [Active]; lidocaine patch [Active]; morphine 15 mg Oral tab 1 tab every 4 hours [Active]; oxycodone-acetaminophen 10-650 mg Oral tab 1 tab every 6 hours [Active]; tizanidine 4 mg Oral cap 1 cap [Active]; Zofran Oral [Active]; - PMHx: 19:47 ADD/ADHD; Back pain; Chronic pain; Degenerative disc disease; Hyperlipidemia; ld1 Hypertension; - PSHx: 19:47 Left wrist surgery; Disc removal; Left clavicle; Left knee replacement; Right knee ld1 replacement; Spinal surgery; - Immunization history:: Adult Immunizations up to date, Client reports receiving the 2nd dose of the Covid vaccine. - Social history:: Smoking status: Patient reports the use of cigarette tobacco products, smokes one-half pack cigarettes per day, Patient uses alcohol, weekly. ROS: 21:03 Constitutional: Negative for fever, chills, and weight loss, Cardiovascular: Negative jm for chest pain, palpitations, and edema, Respiratory: Negative for shortness of breath, cough, wheezing, and pleuritic chest pain. 21:03 Back: Positive for pain with movement. 21:03 All other systems are negative. Exam: 21:03 Head/Face: atraumatic. Eyes: EOMI, no conjunctival erythema appreciated ENT: Moist jmm Mucus Membranes Neck: Trachea midline, Supple Chest/axilla: Normal chest wall appearance and motion. Cardiovascular: Regular rate and rhythm. No edema appreciated Respiratory: Normal respirations, no respiratory distress appreciated Abdomen/GI: Non distended, soft 21:03 Skin: General appearance color normal MS/ Extremity: Moves all extremities, no obvious deformities appreciated, no edema noted to the lower extremities Neuro: Awake and alert, normal gait Psych: Behavior is normal, Mood is normal, Patient is cooperative and pleasant 21:03 Constitutional: The patient appears alert, awake, uncomfortable. 21:03 Back: pain, that is moderate, of the left low back and right low back. Vital Signs: 19:42 BP 121 / 109; Pulse 101; Resp 18; Temp 97.7(TE); Pulse Ox 97% on R/A; Weight 54.43 kg; ld1 Height 5 ft. 4 in. (162.56 cm); Pain 9/10; 21:13 BP 145 / 83; Pulse 93; Resp 18; Pulse Ox 100% on R/A; Pain 9/10; ld1 19:42 Body Mass Index 20.60 (54.43 kg, 162.56 cm) ld1 MDM: 21:03 Patient medically screened. [facility] 21:36 Data reviewed: vital signs, nurses notes. Counseling: I had a detailed discussion with melonie the patient and/or guardian regarding: the historical points, exam findings, and any diagnostic results supporting the discharge/admit diagnosis, the need for outpatient follow up, to return to the emergency department if symptoms worsen or persist or if there are any questions or concerns that arise at home. Administered Medications: 21:22 Drug: morphine 4 mg Route: IM; Site: left gluteus; ld1 22:01 Follow up: Response: Pain is decreased fu 21:23 Drug: Ondansetron 4 mg Route: PO; ld1 22:01 Follow up: Response: Pain is decreased fu Disposition: 10/07 07:12 Co-signature as Attending Physician, Anaya Ruvalcaba MD I agree with the assessment and sp3 plan of care. Disposition Summary: 10/06/21 21:37 Discharge Ordered Location: Home jm Condition: Stable jmm Diagnosis - Strain of muscle, fascia and tendon of lower back jmm Followup: jmm - With: Private Physician - When: 2 - 3 days - Reason: Recheck today's complaints, Continuance of care, Re-evaluation by your physician Discharge Instructions: - Discharge Summary Sheet [facility] - Low Back Sprain or Strain Rehab-SportsMed [facility] Forms: - Medication Reconciliation Form [facility] - Thank You Letter [facility] - Antibiotic Education jm - Prescription Opioid Use [facility] Prescriptions: - Zanaflex 4 mg Oral Tablet - take 1 tablet by ORAL route every 8 hours As needed; 20 tablet; Refills: 0, [facility] Product Selection Permitted - gabapentin 600 mg Oral tablet - take 1 tablet by ORAL route 3 times per day; 30 tablet; Refills: 0, Product [facility] Selection Permitted Signatures: Humphrey Simmons PA PA Layne Ramos RN RN ld1 Anaya Ruvalcaba MD MD sp3 Niko Zimmer RN fu
[2021-10-06 23:51] VITALS: TEMP 97.7
[2021-10-06 23:53] VITALS: BP 145/83; O2SAT 100
--- OUTSIDE RECORDS SUMMARY | 2021-10-10 18:29 | XMS REPORT | Continuity of Care Document ---
:1965 Author Organization [facility] t Address [address] [place] [address] Care Team Providers Name Role Phone Mary Chaves Primary Care Physician Eulogio, A Attending Clinician Unavailable CEZAR DAS Attending Clinician Unavailable EULOGIO Attending Clinician Unavailable Cezar Das MD Attending Clinician Doctor Unassigned, Name Attending Clinician Unavailable Ling Patterson Attending Clinician Unavailable Monisha Attending Clinician Unavailable PRANAV RODRIGUEZ Attending Clinician Unavailable Mary Chaves Admitting Clinician Unavailable Ling Patterson Admitting Clinician Unavailable Monisha Admitting Clinician Unavailable PRANAV RODRIGUEZ Admitting Clinician Unavailable Payers Payer Name Policy Type Policy Number Effective Date [id number] 2021 00:00:00 Problems Condition Condition Condition Status Onset Resolution Last Treating Co mments Source Name Details Category Date Date Treatment Clinician Date No known No known Disease Unive rs active active ity of problems problems [facility] Acute Problem Active 2021-04-11 Memor ia hepatic 01:17:26 l failure Acute [place] (disorder) hepatic failure (disorder) Active Problem 04/11/2021 [facility] 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:17:26 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 (disorder) Active Problem 04/11/2021 [facility] Carotid Problem Active 2021-04-11 Rao caity bruit 01:17:26 l (finding) Carotid Herm joão bruit (finding) Active Problem 04/11/2021 [facility] Cerebrovas Problem Active 2021-04-11 M emoria cular 01:17:26 l accident [place] (disorder) Cerebrovas cular accident (disorder) Active Problem 04/11/2021 [facility] Cervical Problem Active 2021-04-11 Mem oria radiculopa 01:17:26 l thy Cervical Reece n (disorder) radiculopa thy (disorder) Active Problem 04/11/2021 [facility] Degenerati Problem Active 2021-04-11 M emoria on of 01:17:26 l lumbar [address] interverte Degenerati bral [...] finding (finding) Active Problem 04/11/2021 [facility] Hyponatrem Problem Active 2021-04-11 M emoria ia 01:17:26 l (disorder) Reece n Hyponatrem ia (disorder) Active Problem 04/11/2021 [facility] Allergies, Adverse Reactions, Alerts Allergy Allergy Status Severity Reaction(s) Onset Inactive Treating Comm ents Source Name Type Date Date Clinician Iodine Drug Active Rash Univers Allergy 08-14 ity of 00:00: [facility] IODINE DRUG Active Rash Univers INGREDI 08-14 ity of 00:00: [place] [facility] latex DA Active [facility] 7-12 Clear 00:00: [facility] latex DA Active SV BLISTERS, [facility] RASH 12 Clear 00:00: [facility] Povidone Propensi Active Rash Patient Unive rs -Iodine ty to 03-31 reports ity of adverse 00:00: blisterin [place] reaction 00 g and Medical s rashPatie Branch nt reports blisterin g and rashPatie nt reports blisterin g and rash POVIDONE DRUG Active Low Hives Univers -IODINE INGREDI 03-31 ity of 00:00: [facility] iodine DA Active [place] [facility] 07-04 Clear 00:00: [facility] iodine DA Active [place] [facility] IODINE-RASH/ 07-04 Lanny r BLISTER 00:00: [facility] 00 [facility] iodine iodine Active Memoria topical< topical< l sup>1</s sup>1</s Reece n up> up> NO KNOWN Drug Active Univers ALLERGIE Class ity of S [facility] Social History Social Habit Start Date Stop Date Quantity Comments Source History of tobacco Cigarette Smoker University of use [facility] Cigarettes smoked 2021-08-14 2021-08-14 Univers ity of current (pack per 00:00:00 00:00:00 [facility] ) - Reported Branch Tobacco use and 2021-08-14 2021-08-14 Never used Universit y of exposure 00:00:00 00:00:00 [facility] Alcohol intake 2021-08-14 2021-08-14 Current drinker Unive rsity of 00:00:00 00:00:00 of alcohol [place] [facility] (finding) [place] Social History 2019-07-18 2019-07-18 Yuliana brar 15:14:03 15:14:03 Sex [birth year] At [birth year] Universit y of 00:00:00 00:00:00 [facility] Smoking Status Start Date Stop Date Source Unknown if ever smoked Universit y of [facility] Current every day smoker 2021-08-14 00:00:00 Uni versity of [facility] Medications Ordered Filled Start Stop Current Ordering Indication Dosage Frequency Signature Comments Components Source Medication Medication Date Date Medication? Clinician (SIG) Name Name ALPRAZolam Yes alprazolam U nivers 0.5 mg 9-17 0.5 mg ity of tablet 10:31: tablet [place] [address] Take 1 Medical tablet Branch every day by oral route for 10 days. Dexlansopra Yes Dexilant Un malia zole 9-17 60 mg ity of (DEXILANT) 10:31: capsule, Luis as 60 mg 37 delayed Medical capsule release Branch Take 1 capsule every day by oral route for 56 days. gabapentin Yes gabapentin U nivers 600 mg 9-17 600 mg ity of tablet 10:31: tablet [place] [address] Take 1 Medical tablet 3 Branch times a day by oral route. tiZANidine Yes 4mg Take 4 mg Un malia 4 mg tablet 9-17 by mouth. ity of 10:31: [address] zolpidem Yes 5mg Take 5 mg Univ ers 12.5 mg CR 9-17 by mouth. ity of tablet 10:31: [address] ALPRAZolam Yes alprazolam U nivers 0.5 mg 9-17 0.5 mg ity of tablet 10:31: tablet [place] [address] Take 1 Medical tablet Branch every day by oral route for 10 days. Dexlansopra Yes Dexilant Un malia zole 9-17 60 mg ity of (DEXILANT) 10:31: capsule, Luis as 60 mg 37 delayed Medical capsule release Branch Take 1 capsule every day by oral route for 56 days. gabapentin Yes gabapentin U nivers 600 mg 9-17 600 mg ity of tablet 10:31: tablet [place] 37 Take 1 Medical tablet 3 Branch times a day by oral route. tiZANidine 2020-0 Yes 4mg Take 4 mg Un malia 4 mg tablet 9-17 by mouth. ity of 10:31: [address] Branch zolpidem 2020-0 Yes 5mg Take 5 mg Univ ers 12.5 mg CR 9-17 by mouth. ity of tablet 10:31: [address] ALPRAZolam 2020-0 Yes alprazolam U nivers 0.5 mg 9-17 0.5 mg ity of tablet 10:31: tablet [place] 37 Take 1 Medical tablet Branch every day by oral route for 10 days. Dexlansopra 2020-0 Yes Dexilant Un malia zole 9-17 60 mg ity of (DEXILANT) 10:31: capsule, [place] 60 mg 37 delayed Medical capsule release Branch Take 1 capsule every day by oral route for 56 days. gabapentin 2020-0 Yes gabapentin U nivers 600 mg 9-17 600 mg ity of tablet 10:31: tablet [place] [address] Take 1 Medical tablet 3 Branch times a day by oral route. tiZANidine 2020-0 Yes 4mg Take 4 mg Un malia 4 mg tablet 9-17 by mouth. ity of 10:31: [address] zolpidem 2020-0 Yes 5mg Take 5 mg Univ ers 12.5 mg CR 9-17 by mouth. ity of tablet 10:31: [address] ALPRAZolam 2020-0 Yes alprazolam U nivers 0.5 mg 9-17 0.5 mg ity of tablet 10:31: tablet [place] 37 Take 1 Medical tablet Branch every day by oral route for 10 days. Dexlansopra 2020-0 Yes Dexilant Un malia zole 9-17 60 mg ity of (DEXILANT) 10:31: capsule, [place] 60 mg 37 delayed Medical capsule release Branch Take 1 capsule every day by oral route for 56 days. gabapentin 2020-0 Yes gabapentin U nivers 600 mg 9-17 600 mg ity of tablet 10:31: tablet [place] 37 Take 1 Medical tablet 3 Branch times a day by oral route. tiZANidine 2020-0 Yes 4mg Take 4 mg Un malia 4 mg tablet 9-17 by mouth. ity of 10:31: [place] [address] Medical Branch zolpidem Yes 5mg Take 5 mg Univ ers 12.5 mg CR 9-17 by mouth. ity of tablet 10:31: [place] [address] Medical Branch ALPRAZolam Yes alprazolam U nivers 0.5 mg 9-17 0.5 mg ity of tablet 10:31: tablet [place] [address] Take 1 Medical tablet Branch every day by oral route for 10 days. Dexlansopra Yes Dexilant Un malia zole 9-17 60 mg ity of (DEXILANT) 10:31: capsule, Luis as 60 mg 37 delayed Medical capsule release Branch Take 1 capsule every day by oral route for 56 days. gabapentin Yes gabapentin U nivers 600 mg 9-17 600 mg ity of tablet 10:31: tablet Take 1 Medical tablet 3 Branch times a day by oral route. tiZANidine Yes 4mg Take 4 mg Un malia 4 mg tablet 9-17 by mouth. ity of 10:31: [place] [address] Medical Branch zolpidem Yes 5mg Take 5 mg Univ ers 12.5 mg CR 9-17 by mouth. ity of tablet 10:31: [place] [address] Medical Branch atorvastati Yes 10mg Take 10 mg Univers n 10 mg 7-25 by mouth ity of tablet 00:00: every [place] 00 evening. Medical Branch atorvastati Yes 10mg Take 10 mg Univers n 10 mg 7-25 by mouth ity of tablet 00:00: every [place] 00 evening. Medical Branch atorvastati Yes 10mg Take 10 mg Univers n 10 mg 7-25 by mouth ity of tablet 00:00: every [place] 00 evening. Medical Branch atorvastati Yes 10mg Take 10 mg Univers n 10 mg 7-25 by mouth ity of tablet 00:00: every [place] 00 evening. Medical Branch atorvastati Yes 10mg Take 10 mg Univers n 10 mg 7-25 by mouth ity of tablet 00:00: every [place] 00 evening. Medical Branch atorvastati Yes 20 mg = 2 M emoria n 10 mg 1-25 tab, PO, l oral tablet 21:02: Daily, # He rmann 00 60 tab, 1 Refill(s), Pharmacy: [facility] #[id number], 162.56, cm, 12/22/20 14:47:00 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, Height, 66.818, kg, 12/22/20 14:47:00 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, Weight atorvastati 2020-0 Yes 20 mg = 2 M emoria n 10 mg 1-25 tab, PO, l oral tablet 21:02: Daily, # He rmann 00 60 tab, 1 Refill(s), Pharmacy: [facility] #[id number], 162.56, cm, 12/22/20 14:47:00 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, Height, 66.818, kg, 12/22/20 14:47:00 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, Weight atorvastati 2020-0 Yes 20 mg = 2 M emoria n 10 mg 1-25 tab, PO, l oral tablet 21:02: Daily, # Brendon rmann 00 60 tab, 1 Refill(s), Pharmacy: [facility] #[id number], 162.56, cm, 12/22/20 14:47:00 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, Height, 66.818, kg, 12/22/20 14:47:00 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, Weight atorvastati 2020-0 Yes 20 mg = 2 M emoria n 10 mg 1-25 tab, PO, l oral tablet 21:02: Daily, # He rmann 00 60 tab, 1 Refill(s), [id number], 162.56, cm, 12/22/20 14:47:00 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, Height, 66.818, kg, 12/22/20 14:47:00 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, Weight atorvastati 2020-0 Yes 20 mg = 2 M emoria n 10 mg 1-25 tab, PO, l oral tablet 21:02: Daily, # He rmann 00 60 tab, 1 Refill(s), Pharmacy: [facility] #[id number], 162.56, cm, 12/22/20 14:47:00 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, Height, 66.818, kg, 12/22/20 14:47:00 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, Weight atorvastati 2021-0 Yes 20 mg = 2 M emoria n 10 mg 1-25 tab, PO, l oral tablet 21:02: Daily, # He rmann 00 60 tab, 1 Refill(s), Pharmacy: [facility] #[id number], 162.56, cm, 12/22/20 14:47:00 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, Height, 66.818, kg, 12/22/20 14:47:00 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, Weight atorvastati Yes 20 mg = 2 M emoria n 10 mg 1-25 tab, PO, l oral tablet 21:02: Daily, # He rmann 00 60 tab, 1 Refill(s), Pharmacy: [facility] #[id number], 162.56, cm, 12/22/20 14:47:00 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, Height, 66.818, kg, 12/22/20 14:47:00 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, Weight atorvastati Yes 20 mg = 2 M emoria n 10 mg 1-25 tab, PO, l oral tablet 21:02: Daily, # He rmann 00 60 tab, 1 Refill(s), [facility] #[id number], 162.56, cm, 12/22/20 14:47:00 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, Height, 66.818, kg, 12/22/20 14:47:00 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, Weight atorvastati Yes 20 mg = 2 M emoria n 10 mg 1-25 tab, PO, l oral tablet 21:02: Daily, # He rmann 00 60 tab, 1 Refill(s), Pharmacy: [facility] #[id number], 162.56, cm, 12/22/20 14:47:00 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, Height, 66.818, kg, 12/22/20 14:47:00 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, Weight atorvastati Yes 20 mg = 2 M emoria n 10 mg 1-25 tab, PO, l oral tablet 21:02: Daily, # He rmann 00 60 tab, 1 Refill(s), [facility][id number], 162.56, cm, 12/22/20 14:47:00 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, Height, 66.818, kg, 12/22/20 14:47:00 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, Weight atorvastati 2020-0 Yes 20 mg = 2 M emoria n 10 mg 1-25 tab, PO, l oral tablet 21:02: Daily, # He rmann 00 60 tab, 1 Refill(s), Pharmacy: [facility] #[id number], 162.56, cm, 12/22/20 14:47:00 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, Height, 66.818, kg, 12/22/20 14:47:00 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, Weight atorvastati 2020-0 Yes 20 mg = 2 M emoria n 10 mg 1-25 tab, PO, l oral tablet 21:02: Daily, # He rmann 00 60 tab, 1 Refill(s), Pharmacy: [facility] #[id number], 162.56, cm, 12/22/20 14:47:00 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, Height, 66.818, kg, 12/22/20 14:47:00 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, Weight atorvastati 2020-0 Yes 20 mg = 2 M emoria n 10 mg 1-25 tab, PO, l oral tablet 21:02: Daily, # He rmann 00 60 tab, 1 Refill(s), Pharmacy: [facility] #[id number], 162.56, cm, 12/22/20 14:47:00 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, Height, 66.818, kg, 12/22/20 14:47:00 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, Weight atorvastati 2020-0 Yes 20 mg = 2 M emoria n 10 mg 1-25 tab, PO, l oral tablet 21:02: Daily, # He rmann 00 60 tab, 1 Refill(s), Pharmacy: [facility] #[id number], 162.56, cm, 12/22/20 14:47:00 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, Height, 66.818, kg, 12/22/20 14:47:00 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, Weight atorvastati 2020-0 Yes 20 mg = 2 M emoria n 10 mg 1-25 tab, PO, l oral tablet 21:02: Daily, # He rmann 00 60 tab, 1 Refill(s), Pharmacy: [facility] #[id number], 162.56, cm, 12/22/20 14:47:00 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, Height, 66.818, kg, 12/22/20 14:47:00 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, Weight atorvastati 2020-0 Yes 20 mg = 2 M emoria n 10 mg 1-25 tab, PO, l oral tablet 21:02: Daily, # He rmann 00 60 tab, 1 Refill(s), [id number], 162.56, cm, 12/22/20 14:47:00 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, Height, 66.818, kg, 12/22/20 14:47:00 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, Weight atorvastati 2020-0 Yes 20 mg = 2 M emoria n 10 mg 1-25 tab, PO, l oral tablet 21:02: Daily, # He rmann 00 60 tab, 1 Refill(s), [facility][id number], 162.56, cm, 12/22/20 14:47:00 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, Height, 66.818, kg, 12/22/20 14:47:00 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, Weight atorvastati 2020-0 Yes 20 mg = 2 M emoria n 10 mg 1-25 tab, PO, l oral tablet 21:02: Daily, # He rmann 00 60 tab, 1 Refill(s), [facility][id number], 162.56, cm, 12/22/20 14:47:00 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, Height, 66.818, kg, 12/22/20 14:47:00 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, Weight atorvastati 2020-0 Yes 20 mg = 2 M emoria n 10 mg 1-25 tab, PO, l oral tablet 21:02: Daily, # He rmann 00 60 tab, 1 Refill(s), [facility][id number], 162.56, cm, 12/22/20 14:47:00 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, Height, 66.818, kg, 12/22/20 14:47:00 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, Weight atorvastati 2020-0 Yes 20 mg = 2 M emoria n 10 mg 1-25 tab, PO, l oral tablet 21:02: Daily, # He rmann 00 60 tab, 1 Refill(s), [facility][id number], 162.56, cm, 12/22/20 14:47:00 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, Height, 66.818, kg, 12/22/20 14:47:00 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, Weight topiramate 2020-0 Yes 50 mg = 1 Me moria 50 mg oral 9-03 tab, PO, l tablet 18:52: BID, # 60 Reece n 00 tab, 3 Refill(s), Pharmacy: [facility] #[id number], 162.56, cm, 07/31/20 13:42:00 CDT, Height, 56.818, kg, 07/31/20 13:42:00 CDT, Weight topiramate 2020-0 Yes 50 mg = 1 Me moria 50 mg oral 9-03 tab, PO, l tablet 18:52: BID, # 60 Reece n 00 tab, 3 Refill(s), Pharmacy: [facility] #[id number], 162.56, cm, 07/31/20 13:42:00 CDT, Height, 56.818, kg, 07/31/20 13:42:00 CDT, Weight topiramate 2020-0 Yes 50 mg = 1 Me moria 50 mg oral 9-03 tab, PO, l tablet 18:52: BID, # 60 Reece n 00 tab, 3 Refill(s), Pharmacy: [facility] #[id number], 162.56, cm, 07/31/20 13:42:00 CDT, Height, 56.818, kg, 07/31/20 13:42:00 CDT, Weight topiramate 2020-0 Yes 50 mg = 1 Me moria 50 mg oral 9-03 tab, PO, l tablet 18:52: BID, # 60 Reece n 00 tab, 3 Refill(s), Pharmacy: [facility] #[id number], 162.56, cm, 07/31/20 13:42:00 CDT, Height, 56.818, kg, 07/31/20 13:42:00 CDT, Weight topiramate 2020-0 Yes 50 mg = 1 Me moria 50 mg oral 9-03 tab, PO, l tablet 18:52: BID, # 60 Reece n 00 tab, 3 Refill(s), Pharmacy: [facility] #[id number], 162.56, cm, 07/31/20 13:42:00 CDT, Height, 56.818, kg, 07/31/20 13:42:00 CDT, Weight topiramate 2020-0 Yes 50 mg = 1 Me moria 50 mg oral 9-03 tab, PO, l tablet 18:52: BID, # 60 Reece n 00 tab, 3 Refill(s), Pharmacy: [facility] #[id number], 162.56, cm, 07/31/20 13:42:00 CDT, Height, 56.818, kg, 07/31/20 13:42:00 CDT, Weight topiramate 2020-0 Yes 50 mg = 1 Me moria 50 mg oral 9-03 tab, PO, l tablet 18:52: BID, # 60 Reece n 00 tab, 3 Refill(s), Pharmacy: [facility] #[id number], 162.56, cm, 07/31/20 13:42:00 CDT, Height, 56.818, kg, 07/31/20 13:42:00 CDT, Weight topiramate 2020-0 Yes 50 mg = 1 Me moria 50 mg oral 9-03 tab, PO, l tablet 18:52: BID, # 60 Reece n 00 tab, 3 Refill(s), Pharmacy: [facility] #[id number], 162.56, cm, 07/31/20 13:42:00 CDT, Height, 56.818, kg, 07/31/20 13:42:00 CDT, Weight topiramate 2020-0 Yes 50 mg = 1 Me moria 50 mg oral 9-03 tab, PO, l tablet 18:52: BID, # 60 Reece n 00 tab, 3 Refill(s), Pharmacy: [facility] #[id number], 162.56, cm, 07/31/20 13:42:00 CDT, Height, 56.818, kg, 07/31/20 13:42:00 CDT, Weight topiramate 2020-0 Yes 50 mg = 1 Me moria 50 mg oral 9-03 tab, PO, l tablet 18:52: BID, # 60 Reece n 00 tab, 3 Refill(s), Pharmacy: [facility] #[id number], 162.56, cm, 07/31/20 13:42:00 CDT, Height, 56.818, kg, 07/31/20 13:42:00 CDT, Weight topiramate 2020-0 Yes 50 mg = 1 Me moria 50 mg oral 9-03 tab, PO, l tablet 18:52: BID, # 60 Reece n 00 tab, 3 Refill(s), Pharmacy: [facility] #[id number], 162.56, cm, 07/31/20 13:42:00 CDT, Height, 56.818, kg, 07/31/20 13:42:00 CDT, Weight topiramate 2020-0 Yes 50 mg = 1 Me moria 50 mg oral 9-03 tab, PO, l tablet 18:52: BID, # 60 Reece n 00 tab, 3 Refill(s), Pharmacy: [facility] #[id number], 162.56, cm, 07/31/20 13:42:00 CDT, Height, 56.818, kg, 07/31/20 13:42:00 CDT, Weight topiramate 2020-0 Yes 50 mg = 1 Me moria 50 mg oral 9-03 tab, PO, l tablet 18:52: BID, # 60 Reece n 00 tab, 3 Refill(s), Pharmacy: [facility] #[id number], 162.56, cm, 07/31/20 13:42:00 CDT, Height, 56.818, kg, 07/31/20 13:42:00 CDT, Weight topiramate 2020-0 Yes 50 mg = 1 Me moria 50 mg oral 9-03 tab, PO, l tablet 18:52: BID, # 60 Reece n 00 tab, 3 Refill(s), Pharmacy: [facility] #[id number], 162.56, cm, 07/31/20 13:42:00 CDT, Height, 56.818, kg, 07/31/20 13:42:00 CDT, Weight topiramate 2020-0 Yes 50 mg = 1 Me moria 50 mg oral 9-03 tab, PO, l tablet 18:52: BID, # 60 Reece n 00 tab, 3 Refill(s), Pharmacy: [facility] #[id number], 162.56, cm, 07/31/20 13:42:00 CDT, Height, 56.818, kg, 07/31/20 13:42:00 CDT, Weight topiramate 2020-0 Yes 50 mg = 1 Me moria 50 mg oral 9-03 tab, PO, l tablet 18:52: BID, # 60 Reece n 00 tab, 3 Refill(s), Pharmacy: [facility] #[id number], 162.56, cm, 07/31/20 13:42:00 CDT, Height, 56.818, kg, 07/31/20 13:42:00 CDT, Weight topiramate 2020-0 Yes 50 mg = 1 Me moria 50 mg oral 9-03 tab, PO, l tablet 18:52: BID, # 60 Reece n 00 tab, 3 Refill(s), Pharmacy: [facility] #[id number], 162.56, cm, 07/31/20 13:42:00 CDT, Height, 56.818, kg, 07/31/20 13:42:00 CDT, Weight topiramate 2020-0 Yes 50 mg = 1 Me moria 50 mg oral 9-03 tab, PO, l tablet 18:52: BID, # 60 Reece n 00 tab, 3 Refill(s), Pharmacy: [facility] #[id number], 162.56, cm, 07/31/20 13:42:00 CDT, Height, 56.818, kg, 07/31/20 13:42:00 CDT, Weight topiramate 2020-0 Yes 50 mg = 1 Me moria 50 mg oral 9-03 tab, PO, l tablet 18:52: BID, # 60 Reece n 00 tab, 3 Refill(s), Pharmacy: [facility] #[id number], 162.56, cm, 07/31/20 13:42:00 CDT, Height, 56.818, kg, 07/31/20 13:42:00 CDT, Weight topiramate 2020-0 Yes 50 mg = 1 Me moria 50 mg oral 9-03 tab, PO, l tablet 18:52: BID, # 60 Reece n 00 tab, 3 Refill(s), Pharmacy: [facility] #[id number], 162.56, cm, 07/31/20 13:42:00 CDT, Height, 56.818, kg, 07/31/20 13:42:00 CDT, Weight topiramate 2020-0 Yes 25 mg = 1 Me moria 25 MG Oral 4-15 tab, PO, l Tablet 20:04: BID, # 60 Reece n [Topamax] 00 tab, 2 Refill(s), Pharmacy: [facility] #[id number] topiramate 2020-0 Yes 25 mg = 1 Me moria 25 MG Oral 4-15 tab, PO, l Tablet 20:04: BID, # 60 Reece n [Topamax] 00 tab, 2 Refill(s), Pharmacy: [facility] #[id number] topiramate 2020-0 Yes 25 mg = 1 Me moria 25 MG Oral 4-15 tab, PO, l Tablet 20:04: BID, # 60 Reece n [Topamax] 00 tab, 2 Refill(s), Pharmacy: [facility] #[id number] topiramate 2020-0 Yes 25 mg = 1 Me moria 25 MG Oral 4-15 tab, PO, l Tablet 20:04: BID, # 60 Reece n [Topamax] 00 tab, 2 Refill(s), Pharmacy: [facility] #[id number] topiramate 2020-0 Yes 25 mg = 1 Me moria 25 MG Oral 4-15 tab, PO, l Tablet 20:04: BID, # 60 Reece n [Topamax] 00 tab, 2 Refill(s), Pharmacy: [facility] #[id number] topiramate 2020-0 Yes 25 mg = 1 Me moria 25 MG Oral 4-15 tab, PO, l Tablet 20:04: BID, # 60 Reece n [Topamax] 00 tab, 2 Refill(s), Pharmacy: [facility] #[id number] topiramate 2020-0 Yes 25 mg = 1 Me moria 25 MG Oral 4-15 tab, PO, l Tablet 20:04: BID, # 60 Reece n [Topamax] 00 tab, 2 Refill(s), Pharmacy: [facility] #[id number] topiramate 2020-0 Yes 25 mg = 1 Me moria 25 MG Oral 4-15 tab, PO, l Tablet 20:04: BID, # 60 Reece n [Topamax] 00 tab, 2 Refill(s), Pharmacy: [facility] #[id number] topiramate 2020-0 Yes 25 mg = 1 Me moria 25 MG Oral 4-15 tab, PO, l Tablet 20:04: BID, # 60 Reece n [Topamax] 00 tab, 2 Refill(s), Pharmacy: [facility] #[id number] topiramate 2020-0 Yes 25 mg = 1 Me moria 25 MG Oral 4-15 tab, PO, l Tablet 20:04: BID, # 60 Reece n [Topamax] 00 tab, 2 Refill(s), Pharmacy: [facility] #[id number] topiramate 2020-0 Yes 25 mg = 1 Me moria 25 MG Oral 4-15 tab, PO, l Tablet 20:04: BID, # 60 Reece n [Topamax] 00 tab, 2 Refill(s), Pharmacy: [facility] #[id number] topiramate 2020-0 Yes 25 mg = 1 Me moria 25 MG Oral 4-15 tab, PO, l Tablet 20:04: BID, # 60 Reece n [Topamax] 00 tab, 2 Refill(s), Pharmacy: [facility] #[id number] topiramate 2020-0 Yes 25 mg = 1 Me moria 25 MG Oral 4-15 tab, PO, l Tablet 20:04: BID, # 60 Reece n [Topamax] 00 tab, 2 Refill(s), Pharmacy: [facility] #[id number] topiramate 2020-0 Yes 25 mg = 1 Me moria 25 MG Oral 4-15 tab, PO, l Tablet 20:04: BID, # 60 Reece n [Topamax] 00 tab, 2 Refill(s), Pharmacy: [facility] #[id number] topiramate 2020-0 Yes 25 mg = 1 Me moria 25 MG Oral 4-15 tab, PO, l Tablet 20:04: BID, # 60 Reece n [Topamax] 00 tab, 2 Refill(s), Pharmacy: [facility] #[id number] topiramate 2020-0 Yes 25 mg = 1 Me moria 25 MG Oral 4-15 tab, PO, l Tablet 20:04: BID, # 60 Reece n [Topamax] 00 tab, 2 Refill(s), Pharmacy: [facility] #[id number] topiramate 2020-0 Yes 25 mg = 1 Me moria 25 MG Oral 4-15 tab, PO, l Tablet 20:04: BID, # 60 Reece n [Topamax] 00 tab, 2 Refill(s), Pharmacy: [facility] #[id number] topiramate 2020-0 Yes 25 mg = 1 Me moria 25 MG Oral 4-15 tab, PO, l Tablet 20:04: BID, # 60 Reece n [Topamax] 00 tab, 2 Refill(s), Pharmacy: [facility] #[id number] topiramate 2020-0 Yes 25 mg = 1 Me moria 25 MG Oral 4-15 tab, PO, l Tablet 20:04: BID, # 60 Reece n [Topamax] 00 tab, 2 Refill(s), Pharmacy: [facility] #[id number] topiramate 2020-0 Yes 25 mg = 1 Me moria 25 MG Oral 4-15 tab, PO, l Tablet 20:04: BID, # 60 Reece n [Topamax] 00 tab, 2 Refill(s), Pharmacy: [facility] #[id number] Morphine 2020-0 Yes 15 mg, PO, Mem oria 2-25 Q12H, 0 l 19:30: Refill(s) [place] Morphine 2020-0 Yes 15 mg, PO, Mem oria 2-25 Q12H, 0 l 19:30: Refill(s) Victor Hugo 00 Morphine 2020-0 Yes 15 mg, PO, Mem oria 2-25 Q12H, 0 l 19:30: Refill(s) [place] Morphine 2020-0 Yes 15 mg, PO, Mem oria 2-25 Q12H, 0 l 19:30: Refill(s) Victor Hugo 00 Morphine 2020-0 Yes 15 mg, PO, Mem oria 2-25 Q12H, 0 l 19:30: Refill(s) Dalton 00 Morphine 2020-0 Yes 15 mg, PO, Mem oria 2-25 Q12H, 0 l 19:30: Refill(s) Victor Hugo 00 Morphine 2020-0 Yes 15 mg, PO, Mem oria 2-25 Q12H, 0 l 19:30: Refill(s) Victor Hugo 00 Morphine 2020-0 Yes 15 mg, PO, Mem oria 2-25 Q12H, 0 l 19:30: Refill(s) Dalton 00 Morphine 2020-0 Yes 15 mg, PO, Mem oria 2-25 Q12H, 0 l 19:30: Refill(s) Dalton 00 Morphine 2020-0 Yes 15 mg, PO, Mem oria 2-25 Q12H, 0 l 19:30: Refill(s) Victor Hugo 00 Morphine 2020-0 Yes 15 mg, PO, Mem oria 2-25 Q12H, 0 l 19:30: Refill(s) Victor Hugo 00 Morphine 2020-0 Yes 15 mg, PO, Mem oria 2-25 Q12H, 0 l 19:30: Refill(s) Dalton 00 Morphine 2020-0 Yes 15 mg, PO, Mem oria 2-25 Q12H, 0 l 19:30: Refill(s) Victor Hugo 00 Morphine 2020-0 Yes 15 mg, PO, Mem oria 2-25 Q12H, 0 l 19:30: Refill(s) Dalton 00 Morphine 2020-0 Yes 15 mg, PO, Mem oria 2-25 Q12H, 0 l 19:30: Refill(s) Dalton 00 Morphine 2020-0 Yes 15 mg, PO, [...] oria 2-25 Q12H, 0 l 19:30: Refill(s) Dalton 00 topiramate 2020-0 Yes 25 mg = 1 Me moria 25 MG Oral 2-14 tab, PO, l Tablet 23:50: BID, # 60 Reece n [Topamax] 00 tab, 2 Refill(s), Pharmacy: [facility] #[id number] topiramate 2020-0 Yes 25 mg = 1 Me moria 25 MG Oral 2-14 tab, PO, l Tablet 23:50: BID, # 60 Reece n [Topamax] 00 tab, 2 Refill(s), Pharmacy: [facility] #[id number] topiramate 2020-0 Yes 25 mg = 1 Me moria 25 MG Oral 2-14 tab, PO, l Tablet 23:50: BID, # 60 Reece n [Topamax] 00 tab, 2 Refill(s), Pharmacy: [facility] #[id number] topiramate 2020-0 Yes 25 mg = 1 Me moria 25 MG Oral 2-14 tab, PO, l Tablet 23:50: BID, # 60 Reece n [Topamax] 00 tab, 2 Refill(s), Pharmacy: [facility] #[id number] topiramate 2020-0 Yes 25 mg = 1 Me moria 25 MG Oral 2-14 tab, PO, l Tablet 23:50: BID, # 60 Reece n [Topamax] 00 tab, 2 Refill(s), Pharmacy: [facility] #[id number] topiramate 2020-0 Yes 25 mg = 1 Me moria 25 MG Oral 2-14 tab, PO, l Tablet 23:50: BID, # 60 Reece n [Topamax] 00 tab, 2 Refill(s), Pharmacy: [facility] #[id number] topiramate 2020-0 Yes 25 mg = 1 Me moria 25 MG Oral 2-14 tab, PO, l Tablet 23:50: BID, # 60 Reece n [Topamax] 00 tab, 2 Refill(s), Pharmacy: [facility] #[id number] topiramate 2020-0 Yes 25 mg = 1 Me moria 25 MG Oral 2-14 tab, PO, l Tablet 23:50: BID, # 60 Reece n [Topamax] 00 tab, 2 Refill(s), Pharmacy: [facility] #[id number] topiramate 2020-0 Yes 25 mg = 1 Me moria 25 MG Oral 2-14 tab, PO, l Tablet 23:50: BID, # 60 Reece n [Topamax] 00 tab, 2 Refill(s), Pharmacy: [facility] #[id number] topiramate 2020-0 Yes 25 mg = 1 Me moria 25 MG Oral 2-14 tab, PO, l Tablet 23:50: BID, # 60 Reece n [Topamax] 00 tab, 2 Refill(s), Pharmacy: [facility] #[id number] topiramate 2020-0 Yes 25 mg = 1 Me moria 25 MG Oral 2-14 tab, PO, l Tablet 23:50: BID, # 60 Reece n [Topamax] 00 tab, 2 Refill(s), Pharmacy: [facility] #[id number] topiramate 2020-0 Yes 25 mg = 1 Me moria 25 MG Oral 2-14 tab, PO, l Tablet 23:50: BID, # 60 Reece n [Topamax] 00 tab, 2 Refill(s), Pharmacy: [facility] #[id number] topiramate 2020-0 Yes 25 mg = 1 Me moria 25 MG Oral 2-14 tab, PO, l Tablet 23:50: BID, # 60 Reece n [Topamax] 00 tab, 2 Refill(s), Pharmacy: [facility] #[id number] topiramate 2020-0 Yes 25 mg = 1 Me moria 25 MG Oral 2-14 tab, PO, l Tablet 23:50: BID, # 60 Reece n [Topamax] 00 tab, 2 Refill(s), Pharmacy: [facility] #[id number] topiramate 2020-0 Yes 25 mg = 1 Me moria 25 MG Oral 2-14 tab, PO, l Tablet 23:50: BID, # 60 Reece n [Topamax] 00 tab, 2 Refill(s), Pharmacy: [facility] #[id number] topiramate 2020-0 Yes 25 mg = 1 Me moria 25 MG Oral 2-14 tab, PO, l Tablet 23:50: BID, # 60 Reece n [Topamax] 00 tab, 2 Refill(s), Pharmacy: [facility] #[id number] topiramate 2020-0 Yes 25 mg = 1 Me moria 25 MG Oral 2-14 tab, PO, l Tablet 23:50: BID, # 60 Reece n [Topamax] 00 tab, 2 Refill(s), Pharmacy: [facility] #[id number] topiramate 2020-0 Yes 25 mg = 1 Me moria 25 MG Oral 2-14 tab, PO, l Tablet 23:50: BID, # 60 Reece n [Topamax] 00 tab, 2 Refill(s), Pharmacy: [facility] #[id number] topiramate 2020-0 Yes 25 mg = 1 Me moria 25 MG Oral 2-14 tab, PO, l Tablet 23:50: BID, # 60 Reece n [Topamax] 00 tab, 2 Refill(s), Pharmacy: [facility] #[id number] topiramate 2020-0 Yes 25 mg = 1 Me moria 25 MG Oral 2-14 tab, PO, l Tablet 23:50: BID, # 60 Reece n [Topamax] 00 tab, 2 Refill(s), Pharmacy: [facility] #[id number] Aspirin 81 2020-0 Yes 81 mg = 1 Me moria MG Enteric 1-09 tab, PO, l Coated 23:31: Daily, # Dalton Tablet 00 90 tab, 3 Refill(s) Aspirin 81 2020-0 Yes 81 mg = 1 Me moria MG Enteric 1-09 tab, PO, l Coated 23:31: Daily, # Victor Hugo Tablet 00 90 tab, 3 Refill(s) Aspirin 81 2020-0 Yes 81 mg = 1 Me moria MG Enteric 1-09 tab, PO, l Coated 23:31: Daily, # Victor Hugo Tablet 00 90 tab, 3 Refill(s) Aspirin 81 2020-0 Yes 81 mg = 1 Me moria MG Enteric 1-09 tab, PO, l Coated 23:31: Daily, # Victor Hugo Tablet 00 90 tab, 3 Refill(s) Aspirin 81 2020-0 Yes 81 mg = 1 Me moria MG Enteric 1-09 tab, PO, l Coated 23:31: Daily, # Victor Hugo Tablet 00 90 tab, 3 Refill(s) Aspirin 81 2020-0 Yes 81 mg = 1 Me moria MG Enteric 1-09 tab, PO, l Coated 23:31: Daily, # Dalton Tablet 00 90 tab, 3 Refill(s) Aspirin 81 2020-0 Yes 81 mg = 1 Me moria MG Enteric - tab, PO, l Coated 23:31: Daily, # Victor Hugo Tablet 00 90 tab, 3 Refill(s) Aspirin 81 2020-0 Yes 81 mg = 1 Me moria MG Enteric - tab, PO, l Coated 23:31: Daily, # Dalton Tablet 00 90 tab, 3 Refill(s) Aspirin 81 2020-0 Yes 81 mg = 1 Me moria MG Enteric - tab, PO, l Coated 23:31: Daily, # Dalton Tablet 00 90 tab, 3 Refill(s) Aspirin 81 2020-0 Yes 81 mg = 1 Me moria MG Enteric - tab, PO, l Coated 23:31: Daily, # Victor Hugo Tablet 00 90 tab, 3 Refill(s) Aspirin 81 2020-0 Yes 81 mg = 1 Me moria MG Enteric - tab, PO, l Coated 23:31: Daily, # Dalton Tablet 00 90 tab, 3 Refill(s) Aspirin 81 2020-0 Yes 81 mg = 1 Me moria MG Enteric - tab, PO, l Coated 23:31: Daily, # Dalton Tablet 00 90 tab, 3 Refill(s) Aspirin 81 2020-0 Yes 81 mg = 1 Me moria MG Enteric - tab, PO, l Coated 23:31: Daily, # Victor Hugo Tablet 00 90 tab, 3 Refill(s) Aspirin 81 2020-0 Yes 81 mg = 1 Me moria MG Enteric - tab, PO, l Coated 23:31: Daily, # [place] Tablet 00 90 tab, 3 Refill(s) Aspirin 81 2020-0 Yes 81 mg = 1 Me moria MG Enteric - tab, PO, l Coated 23:31: Daily, # Victor Hugo Tablet 00 90 tab, 3 Refill(s) Aspirin 81 2020-0 Yes 81 mg = 1 Me moria MG Enteric -09 tab, PO, l Coated 23:31: Daily, # Victor Hugo Tablet 00 90 tab, 3 Refill(s) Aspirin 81 2020-0 Yes 81 mg = 1 Me moria MG Enteric -09 tab, PO, l Coated 23:31: Daily, # Victor Hugo Tablet 00 90 tab, 3 Refill(s) Aspirin 81 2020-0 Yes 81 mg = 1 Me moria MG Enteric -09 tab, PO, l Coated 23:31: Daily, # [place] Tablet 00 90 tab, 3 Refill(s) Aspirin 81 2020-0 Yes 81 mg = 1 Me moria MG Enteric -09 tab, PO, l Coated 23:31: Daily, # Victor Hugo Tablet 00 90 tab, 3 Refill(s) Aspirin 81 2020-0 Yes 81 mg = 1 Me moria MG Enteric - tab, PO, l Coated 23:31: Daily, # Dalton Tablet 00 90 tab, 3 Refill(s) oxcarbazepi 2020-0 Yes 150 mg = 1 Memoria ne 150 MG 1-09 tab, PO, l Oral Tablet 23:05: Bedtime, # Dalton [Trileptal] 00 30 tab, 3 Refill(s), Pharmacy: [facility] #[id number] oxcarbazepi 2020-0 Yes 150 mg = 1 Memoria ne 150 MG 1-09 tab, PO, l Oral Tablet 23:05: Bedtime, # Dalton [Trileptal] 00 30 tab, 3 Refill(s), Pharmacy: [facility] #[id number] oxcarbazepi 2020-0 Yes 150 mg = 1 Memoria ne 150 MG -09 tab, PO, l Oral Tablet 23:05: Bedtime, # Victor Hugo [Trileptal] 00 30 tab, 3 Refill(s), Pharmacy: [facility] #[id number] oxcarbazepi 2020-0 Yes 150 mg = 1 Memoria ne 150 MG 1-09 tab, PO, l Oral Tablet 23:05: Bedtime, # [place] [Trileptal] 00 30 tab, 3 Refill(s), Pharmacy: [facility] #[id number] oxcarbazepi 2020-0 Yes 150 mg = 1 Memoria ne 150 MG 1-09 tab, PO, l Oral Tablet 23:05: Bedtime, # Victor Hugo [Trileptal] 00 30 tab, 3 Refill(s), Pharmacy: [facility] #[id number] oxcarbazepi 2020-0 Yes 150 mg = 1 Memoria ne 150 MG 1-09 tab, PO, l Oral Tablet 23:05: Bedtime, # Victor Hugo [Trileptal] 00 30 tab, 3 Refill(s), [id number] oxcarbazepi 2020-0 Yes 150 mg = 1 Memoria ne 150 MG 1-09 tab, PO, l Oral Tablet 23:05: Bedtime, # Victor Hugo [Trileptal] 00 30 tab, 3 Refill(s), [facility][id number] oxcarbazepi 2020-0 Yes 150 mg = 1 Memoria ne 150 MG 1-09 tab, PO, l Oral Tablet 23:05: Bedtime, # [place] [Trileptal] 00 30 tab, 3 Refill(s), [facility][id number] oxcarbazepi 2020-0 Yes 150 mg = 1 Memoria ne 150 MG 1-09 tab, PO, l Oral Tablet 23:05: Bedtime, # Victor Hugo [Trileptal] 00 30 tab, 3 Refill(s), [facility][id number] oxcarbazepi 2020-0 Yes 150 mg = 1 Memoria ne 150 MG 1-09 tab, PO, l Oral Tablet 23:05: Bedtime, # Victor Hugo [Trileptal] 00 30 tab, 3 Refill(s), [facility][id number] oxcarbazepi 2020-0 Yes 150 mg = 1 Memoria ne 150 MG 1-09 tab, PO, l Oral Tablet 23:05: Bedtime, # Victor Hugo [Trileptal] 00 30 tab, 3 Refill(s), [facility][id number] oxcarbazepi 2020-0 Yes 150 mg = 1 Memoria ne 150 MG 1-09 tab, PO, l Oral Tablet 23:05: Bedtime, # [place] [Trileptal] 00 30 tab, 3 Refill(s), [facility][id number] oxcarbazepi 2020-0 Yes 150 mg = 1 Memoria ne 150 MG 1-09 tab, PO, l Oral Tablet 23:05: Bedtime, # [place] [Trileptal] 00 30 tab, 3 Refill(s), [facility][id number] oxcarbazepi 2020-0 Yes 150 mg = 1 Memoria ne 150 MG 1-09 tab, PO, l Oral Tablet 23:05: Bedtime, # Victor Hugo [Trileptal] 00 30 tab, 3 Refill(s), Pharmacy: [facility] #[id number] oxcarbazepi 2020-0 Yes 150 mg = 1 Memoria ne 150 MG 1-09 tab, PO, l Oral Tablet 23:05: Bedtime, # Victor Hugo [Trileptal] 00 30 tab, 3 Refill(s), Pharmacy: [facility] #[id number] oxcarbazepi 2020-0 Yes 150 mg = 1 Memoria ne 150 MG 1-09 tab, PO, l Oral Tablet 23:05: Bedtime, # Victor Hugo [Trileptal] 00 30 tab, 3 Refill(s), Pharmacy: [facility] #[id number] oxcarbazepi 2020-0 Yes 150 mg = 1 Memoria ne 150 MG 1-09 tab, PO, l Oral Tablet 23:05: Bedtime, # Victor Hugo [Trileptal] 00 30 tab, 3 Refill(s), Pharmacy: [facility] #[id number] oxcarbazepi 2020-0 Yes 150 mg = 1 Memoria ne 150 MG 1-09 tab, PO, l Oral Tablet 23:05: Bedtime, # Victor Hugo [Trileptal] 00 30 tab, 3 Refill(s), Pharmacy: [facility] #[id number] oxcarbazepi 2020-0 Yes 150 mg = 1 Memoria ne 150 MG 1-09 tab, PO, l Oral Tablet 23:05: Bedtime, # Victor Hugo [Trileptal] 00 30 tab, 3 Refill(s), Pharmacy: [facility] #[id number] oxcarbazepi 2020-0 Yes 150 mg = 1 Memoria ne 150 MG 1-09 tab, PO, l Oral Tablet 23:05: Bedtime, # Victor Hugo [Trileptal] 00 30 tab, 3 Refill(s), Pharmacy: [facility] #[id number] atorvastati 2018- Yes 40 mg = 1 M emoria n 40 mg 2-11 tab, PO, l oral tablet 23:32: Daily, # Brendon monet 39 30 tab, 2 Refill(s), Pharmacy: [facility] #[id number] Anulex 2018-11 Yes 40 mg = 1 M emoria n 40 mg 2-11 tab, PO, l oral tablet 23:32: Daily, # He rmann 39 30 tab, 2 Refill(s), Pharmacy: [facility] #[id number] [employer] 2018-11 Yes 40 mg = 1 M emoria n 40 mg 2-11 tab, PO, l oral tablet 23:32: Daily, # He rmann 39 30 tab, 2 Refill(s), Pharmacy: [facility] #[id number] Anulex 2018-11 Yes 40 mg = 1 M emoria n 40 mg 2-11 tab, PO, l oral tablet 23:32: Daily, # He rmann 39 30 tab, 2 Refill(s), Pharmacy: [facility] #[id number] [employer] 2018-11 Yes 40 mg = 1 M emoria n 40 mg 2-11 tab, PO, l oral tablet 23:32: Daily, # He rmann 39 30 tab, 2 Refill(s), Pharmacy: [facility] #[id number] Anulex 2018-11 Yes 40 mg = 1 M emoria n 40 mg 2-11 tab, PO, l oral tablet 23:32: Daily, # He rmann 39 30 tab, 2 Refill(s), Pharmacy: [facility] #[id number] [employer] 2018-11 Yes 40 mg = 1 M emoria n 40 mg 2-11 tab, PO, l oral tablet 23:32: Daily, # He rmann 39 30 tab, 2 Refill(s), Pharmacy: [facility] #[id number] Anulex 2018-11 Yes 40 mg = 1 M emoria n 40 mg 2-11 tab, PO, l oral tablet 23:32: Daily, # He rmann 39 30 tab, 2 Refill(s), Pharmacy: [facility] #[id number] [employer] 2018-11 Yes 40 mg = 1 M emoria n 40 mg 2-11 tab, PO, l oral tablet 23:32: Daily, # He rmann 39 30 tab, 2 Refill(s), Pharmacy: [facility] #[id number] [employer] 2018-11 Yes 40 mg = 1 M emoria n 40 mg 2-11 tab, PO, l oral tablet 23:32: Daily, # He rmann 39 30 tab, 2 Refill(s), Pharmacy: [facility] #[id number] [facility]11 Yes 40 mg = 1 M emoria n 40 mg 2-11 tab, PO, l oral tablet 23:32: Daily, # He rmann 39 30 tab, 2 Refill(s), Pharmacy: [facility] #[id number] [employer] 2018-11 Yes 40 mg = 1 M emoria n 40 mg 2-11 tab, PO, l oral tablet 23:32: Daily, # He rmann 39 30 tab, 2 Refill(s), Pharmacy: [facility] #[id number] [employer] 2018-11 Yes 40 mg = 1 M emoria n 40 mg 2-11 tab, PO, l oral tablet 23:32: Daily, # He rmann 39 30 tab, 2 Refill(s), Pharmacy: [facility] #[id number] [employer] 2018-11 Yes 40 mg = 1 M emoria n 40 mg 2-11 tab, PO, l oral tablet 23:32: Daily, # He rmann 39 30 tab, 2 Refill(s), Pharmacy: [facility] #[id number] [employer] 2018-11 Yes 40 mg = 1 M emoria n 40 mg 2-11 tab, PO, l oral tablet 23:32: Daily, # He rmann 39 30 tab, 2 Refill(s), Pharmacy: [facility] #[id number] [employer] 2018-11 Yes 40 mg = 1 M emoria n 40 mg 2-11 tab, PO, l oral tablet 23:32: Daily, # He rmann 39 30 tab, 2 Refill(s), Pharmacy: [facility] #[id number] [employer] 2018-11 Yes 40 mg = 1 M emoria n 40 mg 2-11 tab, PO, l oral tablet 23:32: Daily, # He rmann 39 30 tab, 2 Refill(s), Pharmacy: [facility] #[id number] [employer] 2018-11 Yes 40 mg = 1 M emoria n 40 mg 2-11 tab, PO, l oral tablet 23:32: Daily, # Brendon rmann 39 30 tab, 2 Refill(s), Pharmacy: [facility] #[id number] atorvasta 2018-11 Yes 40 mg = 1 M emoria n 40 mg 2-11 tab, PO, l oral tablet 23:32: Daily, # Brendon rmann 39 30 tab, 2 Refill(s), Pharmacy: [facility][id number] [facility]11 Yes 40 mg = 1 M emoria n 40 mg 2-11 tab, PO, l oral tablet 23:32: Daily, # Brendon rmann 39 30 tab, 2 Refill(s), Pharmacy: [facility] #[id number] [facility] 2018-11 Yes 25 mg = 1 Me moria 25 MG Oral 0-23 tab, PO, l Tablet 18:40: BID, # 60 Reece n [Topamax] 02 tab, 2 Refill(s), Pharmacy: [facility] #[id number] [facility] 2018-11 Yes 25 mg = 1 Me moria 25 MG Oral 0-23 tab, PO, l Tablet 18:40: BID, # 60 Reece n [Topamax] 02 tab, 2 Refill(s), Pharmacy: [facility] #[id number] [facility] 2018-11 Yes 25 mg = 1 Me moria 25 MG Oral 0-23 tab, PO, l Tablet 18:40: BID, # 60 Reece n [Topamax] 02 tab, 2 Refill(s), Pharmacy: [facility] #[id number] topiramate 2018-11 Yes 25 mg = 1 Me moria 25 MG Oral 0-23 tab, PO, l Tablet 18:40: BID, # 60 Reece n [Topamax] 02 tab, 2 Refill(s), Pharmacy: [facility] #[id number] topiramate 2018-11 Yes 25 mg = 1 Me moria 25 MG Oral 0-23 tab, PO, l Tablet 18:40: BID, # 60 Reece n [Topamax] 02 tab, 2 Refill(s), Pharmacy: [facility] #[id number] topiramate 2018-11 Yes 25 mg = 1 Me moria 25 MG Oral 0-23 tab, PO, l Tablet 18:40: BID, # 60 Reece n [Topamax] 02 tab, 2 Refill(s), Pharmacy: [facility] #[address] [place] [address] 2018-11 Yes 25 mg = 1 Me moria 25 MG Oral 0-23 tab, PO, l Tablet 18:40: BID, # 60 Reece n [Topamax] 02 tab, 2 Refill(s), Pharmacy: [facility] #[address] [place] [address] 2018-11 Yes 25 mg = 1 Me moria 25 MG Oral 0-23 tab, PO, l Tablet 18:40: BID, # 60 Reece n [Topamax] 02 tab, 2 Refill(s), Pharmacy: [facility] #[address] [place] [address] 2018-11 Yes 25 mg = 1 Me moria 25 MG Oral 0-23 tab, PO, l Tablet 18:40: BID, # 60 Reece n [Topamax] 02 tab, 2 Refill(s), Pharmacy: [facility] #[address] [place] [address] 2018-11 Yes 25 mg = 1 Me moria 25 MG Oral 0-23 tab, PO, l Tablet 18:40: BID, # 60 Reece n [Topamax] 02 tab, 2 Refill(s), Pharmacy: [facility] #[address] [place] [address] 2018-11 Yes 25 mg = 1 Me moria 25 MG Oral 0-23 tab, PO, l Tablet 18:40: BID, # 60 Reece n [Topamax] 02 tab, 2 Refill(s), Pharmacy: [facility] #[address] [place] [address] 2018-11 Yes 25 mg = 1 Me moria 25 MG Oral 0-23 tab, PO, l Tablet 18:40: BID, # 60 Reece n [Topamax] 02 tab, 2 Refill(s), Pharmacy: [facility] #[address] [place] [address] 2018-11 Yes 25 mg = 1 Me moria 25 MG Oral 0-23 tab, PO, l Tablet 18:40: BID, # 60 Reece n [Topamax] 02 tab, 2 Refill(s), Pharmacy: [facility] #[address] [place] [address] 2018-11 Yes 25 mg = 1 Me moria 25 MG Oral 0-23 tab, PO, l Tablet 18:40: BID, # 60 Reece n [Topamax] 02 tab, 2 Refill(s), Pharmacy: [id number] Yes 25 mg = 1 Me moria 25 MG Oral 0-23 tab, PO, l Tablet 18:40: BID, # 60 Reece n [Topamax] 02 tab, 2 Refill(s), Pharmacy: [facility][id number] [facility] Yes 25 mg = 1 Me moria 25 MG Oral 0-23 tab, PO, l Tablet 18:40: BID, # 60 Reece n [Topamax] 02 tab, 2 Refill(s), Pharmacy: [facility] #[id number] [facility] Yes 25 mg = 1 Me moria 25 MG Oral 0-23 tab, PO, l Tablet 18:40: BID, # 60 Reece n [Topamax] 02 tab, 2 Refill(s), Pharmacy: [facility] #[id number] [facility] Yes 25 mg = 1 Me moria 25 MG Oral 0-23 tab, PO, l Tablet 18:40: BID, # 60 Reece n [Topamax] 02 tab, 2 Refill(s), Pharmacy: [facility] #[id number] [facility] 2018-11 Yes 25 mg = 1 Me moria 25 MG Oral 0-23 tab, PO, l Tablet 18:40: BID, # 60 Reece n [Topamax] 02 tab, 2 Refill(s), Pharmacy: [facility] #[id number] [facility] Yes 25 mg = 1 Me moria 25 MG Oral 0-23 tab, PO, l Tablet 18:40: BID, # 60 Reece n [Topamax] 02 tab, 2 Refill(s), [id number] = 1 Me moria 25 MG Oral 8-21 tab, PO, l Tablet 15:45: Bedtime, # Mary nn [Topamax] 00 30 tab, 2 Refill(s), Pharmacy: [facility] #[id number] topiramate 2019-0 Yes 25 mg = 1 Me moria 25 MG Oral 8-21 tab, PO, l Tablet 15:45: Bedtime, # Mary nn [Topamax] 00 30 tab, 2 Refill(s), Pharmacy: [facility] #[id number] topiramate 2019-0 Yes 25 mg = 1 Me moria 25 MG Oral 8-21 tab, PO, l Tablet 15:45: Bedtime, # Mary nn [Topamax] 00 30 tab, 2 Refill(s), Pharmacy: [facility] #[id number] topiramate 2019-0 Yes 25 mg = 1 Me moria 25 MG Oral 8-21 tab, PO, l Tablet 15:45: Bedtime, # Mary nn [Topamax] 00 30 tab, 2 Refill(s), Pharmacy: [facility] #[id number] topiramate 2019-0 Yes 25 mg = 1 Me moria 25 MG Oral 8-21 tab, PO, l Tablet 15:45: Bedtime, # Mary nn [Topamax] 00 30 tab, 2 Refill(s), Pharmacy: [facility] #[id number] topiramate 2019-0 Yes 25 mg = 1 Me moria 25 MG Oral 8-21 tab, PO, l Tablet 15:45: Bedtime, # Mary nn [Topamax] 00 30 tab, 2 Refill(s), Pharmacy: [facility] #[id number] topiramate 2019-0 Yes 25 mg = 1 Me moria 25 MG Oral 8-21 tab, PO, l Tablet 15:45: Bedtime, # Mary nn [Topamax] 00 30 tab, 2 Refill(s), Pharmacy: [facility] #[id number] topiramate 2019-0 Yes 25 mg = 1 Me moria 25 MG Oral 8-21 tab, PO, l Tablet 15:45: Bedtime, # Mary nn [Topamax] 00 30 tab, 2 Refill(s), Pharmacy: [facility] #[id number] topiramate 2019-0 Yes 25 mg = 1 Me moria 25 MG Oral 8-21 tab, PO, l Tablet 15:45: Bedtime, # Mary nn [Topamax] 00 30 tab, 2 Refill(s), [id number] topiramate 2019-0 Yes 25 mg = 1 Me moria 25 MG Oral 8-21 tab, PO, l Tablet 15:45: Bedtime, # Mary nn [Topamax] 00 30 tab, 2 Refill(s), Pharmacy: [facility] #[id number] topiramate 2019-0 Yes 25 mg = 1 Me moria 25 MG Oral 8-21 tab, PO, l Tablet 15:45: Bedtime, # Mary nn [Topamax] 00 30 tab, 2 Refill(s), [id number] topiramate 2019-0 Yes 25 mg = 1 Me moria 25 MG Oral 8-21 tab, PO, l Tablet 15:45: Bedtime, # Mary nn [Topamax] 00 30 tab, 2 Refill(s), Pharmacy: [facility] #[id number] topiramate 2019-0 Yes 25 mg = 1 Me moria 25 MG Oral 8-21 tab, PO, l Tablet 15:45: Bedtime, # Mary nn [Topamax] 00 30 tab, 2 Refill(s), [id number] topiramate 2019-0 Yes 25 mg = 1 Me moria 25 MG Oral 8-21 tab, PO, l Tablet 15:45: Bedtime, # Mary nn [Topamax] 00 30 tab, 2 Refill(s), Pharmacy: [facility] #[id number] topiramate 2019-0 Yes 25 mg = 1 Me moria 25 MG Oral 8-21 tab, PO, l Tablet 15:45: Bedtime, # Mary nn [Topamax] 00 30 tab, 2 Refill(s), [id number] topiramate 2019-0 Yes 25 mg = 1 Me moria 25 MG Oral 8-21 tab, PO, l Tablet 15:45: Bedtime, # Mary nn [Topamax] 00 30 tab, 2 Refill(s), [id number] topiramate 2019-0 Yes 25 mg = 1 Me moria 25 MG Oral 8-21 tab, PO, l Tablet 15:45: Bedtime, # Mary nn [Topamax] 00 30 tab, 2 Refill(s), Pharmacy: [facility] #[id number] topiramate 2019-0 Yes 25 mg = 1 Me moria 25 MG Oral 8-21 tab, PO, l Tablet 15:45: Bedtime, # Mary nn [Topamax] 00 30 tab, 2 Refill(s), Pharmacy: [facility] #[id number] topiramate 2019-0 Yes 25 mg = 1 Me moria 25 MG Oral 8-21 tab, PO, l Tablet 15:45: Bedtime, # Mary nn [Topamax] 00 30 tab, 2 Refill(s), Pharmacy: [facility]ORE #[id number] topiramate 2019-0 Yes 25 mg = 1 Me moria 25 MG Oral 8-21 tab, PO, l Tablet 15:45: Bedtime, # Mary nn [Topamax] 00 30 tab, 2 Refill(s), Pharmacy: [facility] #[id number] atorvastati 2018-0 Yes PO, Daily, Memoria n 8-21 0 l 15:28: Refill(s) Amlodipine 2019-0 Yes PO, Daily, M emoria 8-21 0 l 15:28: Refill(s) atorvastati 2019-0 Yes PO, Daily, Memoria n 8-21 0 l 15:28: Refill(s) Amlodipine 2018-0 Yes PO, Daily, M emoria 8-21 0 l 15:28: Refill(s) atorvastati 2019-0 Yes PO, Daily, Memoria n 8-21 0 l 15:28: Refill(s) Amlodipine 2019-0 Yes PO, Daily, M emoria 8-21 0 l 15:28: Refill(s) atorvastati 2019-0 Yes PO, Daily, Memoria n 8-21 0 l 15:28: Refill(s) Amlodipine 2019-0 Yes PO, Daily, M emoria 8-21 0 l 15:28: Refill(s) atorvastati 2019-0 Yes PO, Daily, Memoria n 8-21 0 l 15:28: Refill(s) Amlodipine 2019-0 Yes PO, Daily, M emoria 8-21 0 l 15:28: Refill(s) atorvastati 2019-0 Yes PO, Daily, Memoria n 8-21 0 l 15:28: Refill(s) Amlodipine 2019-0 Yes PO, Daily, M emoria 8-21 0 l 15:28: Refill(s) atorvastati 2019-0 Yes PO, Daily, Memoria n 8-21 0 l 15:28: Refill(s) Amlodipine 2019-0 Yes PO, Daily, M emoria 8-21 0 l 15:28: Refill(s) atorvastati 2019-0 Yes PO, Daily, Memoria n 8-21 0 l 15:28: Refill(s) Amlodipine 2019-0 Yes PO, Daily, M emoria 8-21 0 l 15:28: Refill(s) atorvastati 2019-0 Yes PO, Daily, Memoria n 8-21 0 l 15:28: Refill(s) Amlodipine 2019-0 Yes PO, Daily, M emoria 8-21 0 l 15:28: Refill(s) atorvastati 2019-0 Yes PO, Daily, Memoria n 8-21 0 l 15:28: Refill(s) Amlodipine 2019-0 Yes PO, Daily, M emoria 8-21 0 l 15:28: Refill(s) atorvastati 2019-0 Yes PO, Daily, Memoria n 8-21 0 l 15:28: Refill(s) Amlodipine 2019-0 Yes PO, Daily, M emoria 8-21 0 l 15:28: Refill(s) atorvastati 2019-0 Yes PO, Daily, Memoria n 8-21 0 l 15:28: Refill(s) Amlodipine 2019-0 Yes PO, Daily, M emoria 8-21 0 l 15:28: Refill(s) atorvastati 2019-0 Yes PO, Daily, Memoria n 8-21 0 l 15:28: Refill(s) Amlodipine 2019-0 Yes PO, Daily, M emoria 8-21 0 l 15:28: Refill(s) atorvastati 2019-0 Yes PO, Daily, Memoria n 8-21 0 l 15:28: Refill(s) Amlodipine 2019-0 Yes PO, Daily, M emoria 8-21 0 l 15:28: Refill(s) atorvastati 2019-0 Yes PO, Daily, Memoria n 8-21 0 l 15:28: Refill(s) Amlodipine 2019-0 Yes PO, Daily, M emoria 8-21 0 l 15:28: Refill(s) atorvastati 2019-0 Yes PO, Daily, Memoria n 8-21 0 l 15:28: Refill(s) atorvastati 2019-0 Yes PO, Daily, Memoria n 8-21 0 l 15:28: Refill(s) Amlodipine 2019-0 Yes PO, Daily, M emoria 8-21 0 l 15:28: Refill(s) Amlodipine 2019-0 Yes PO, Daily, M emoria 8-21 0 l 15:28: Refill(s) atorvastati 2019-0 Yes PO, Daily, Memoria n 8-21 0 l 15:28: Refill(s) Amlodipine 2019-0 Yes PO, Daily, M emoria 8-21 0 l 15:28: Refill(s) atorvastati 2019-0 Yes PO, Daily, Memoria n 8-21 0 l 15:28: Refill(s) Amlodipine 2019-0 Yes PO, Daily, M emoria 8-21 0 l 15:28: Refill(s) atorvastati 2019-0 Yes PO, Daily, Memoria n 8-21 0 l 15:28: Refill(s) Amlodipine 2019-0 Yes PO, Daily, M emoria 8-21 0 l 15:28: Refill(s) Zanaflex 2019-0 Yes 4 mg, PO, Rao caity 8-21 Q8H, 0 l 15:00: Refill(s) oxyCODONE Yes 10 mg = 1 Mem oria 10 mg oral 8-21 tab, PO, l tablet, 15:00: Q6H, 0 immediate Refill(s) release gabapentin 2019-0 Yes 600 mg, Rao caity 8-21 PO, TID, 0 l 15:00: Refill(s) Ambien Yes 5 mg, PO, Memori a 8-21 Bedtime, 0 l 15:00: Refill(s) Lidocaine 0 Yes See Memoria 8 Instructio l 15:00: ns, 5 % Transderma l q12, 0 Refill(s) Protonix 0 Yes 40 mg, PO, Mem oria 8-21 Daily, 0 l 15:00: Refill(s) Ondansetron Yes 4 mg = 1 Me moria 4 MG Oral 8-21 tab, PO, l Tablet 15:00: Q8H, 0 [Zofran] Refill(s) Hydroxyzine 0 Yes 25 mg = 1 M emoria 8-21 tab, PO, l 15:00: Q6H, PRN rash / allergy symptoms, 0 Refill(s) Fluoxetine 0 Yes 60 mg, PO, M emoria 8-21 Daily, 0 l 15:00: Refill(s) Zanaflex 0 Yes 4 mg, PO, Rao caity 8-21 Q8H, 0 l 15:00: Refill(s) oxyCODONE Yes 10 mg = 1 Mem oria 10 mg oral 8-21 tab, PO, l tablet, 15:00: Q6H, 0 immediate Refill(s) release gabapentin 20190 Yes 600 mg, Rao caity 8-21 PO, TID, 0 l 15:00: Refill(s) Ambien 0 Yes 5 mg, PO, Memori a 8-21 Bedtime, 0 l 15:00: Refill(s) Lidocaine 0 Yes See Memoria 821 Instructio l 15:00: ns, 5 % Transderma [...] 8-21 Daily, 0 l 15:00: Refill(s) Zanaflex 2019-0 Yes 4 mg, PO, Rao caity 8-21 Q8H, 0 l 15:00: Refill(s) oxyCODONE 0 Yes 10 mg = 1 Mem oria 10 mg oral 8-21 tab, PO, l tablet, 15:00: Q6H, 0 Refill(s) release gabapentin 0 Yes 600 mg, Rao caity 821 PO, TID, 0 l 15:00: Refill(s) Ambien 20190 Yes 5 mg, PO, Memori a 8- Bedtime, 0 l 15:00: Refill(s) Lidocaine 2019-0 Yes See Memoria 821 Instructio l 15:00: ns, 5 % Transderma [...] tab, PO, l tablet, 15:00: Q6H, 0 immediate Refill(s) release gabapentin 20190 Yes 600 mg, Rao caity 8-21 PO, TID, 0 l 15:00: Refill(s) Ambien 0 Yes 5 mg, PO, Memori a 8- Bedtime, 0 l 15:00: Refill(s) Lidocaine 20190 Yes See Memoria 8 Instructio l 15:00: ns, 5 % Transderma l q12, 0 Refill(s) Protonix 0 Yes 40 mg, PO, Mem oria 8 Daily, 0 l 15:00: Refill(s) Ondansetron 0 Yes 4 mg = 1 Me moria 4 MG Oral 8-21 tab, PO, l Tablet 15:00: Q8H, 0 [Zofran] Refill(s) Hydroxyzine 0 Yes 25 mg = 1 M emoria 8-21 tab, PO, l 15:00: Q6H, PRN rash / allergy symptoms, 0 Refill(s) Fluoxetine 0 Yes 60 mg, PO, M emoria 8-21 Daily, 0 l 15:00: Refill(s) Zanaflex 20190 Yes 4 mg, PO, Rao caity 8-21 Q8H, 0 l 15:00: Refill(s) oxyCODONE 0 Yes 10 mg = 1 Mem oria 10 mg oral 8-21 tab, PO, l tablet, 15:00: Q6H, 0 immediate Refill(s) release gabapentin 2019-0 Yes 600 mg, [...] tab, PO, l Tablet 15:00: Q8H, 0 Victor Hugo [Zofran] Refill(s) Hydroxyzine 2019- Yes 25 mg = 1 M emoria 8-21 tab, PO, l 15:00: Q6H, PRN rash / allergy symptoms, 0 Refill(s) Fluoxetine 2019-0 Yes 60 mg, PO, M emoria 8-21 Daily, 0 l 15:00: Refill(s) Zanaflex 2019-0 Yes 4 mg, PO, Rao caity 8-21 Q8H, 0 l 15:00: Refill(s) oxyCODONE 2018- Yes 10 mg = 1 Mem oria 10 mg oral 8-21 tab, PO, l tablet, 15:00: Q6H, 0 Victor Hugo Refill(s) release gabapentin 2019-0 Yes 600 mg, Rao caity 8-21 PO, TID, 0 l 15:00: Refill(s) Ambien 2019-0 Yes 5 mg, PO, Memori a 821 Bedtime, 0 l 15:00: Refill(s) Lidocaine 2019-0 [...] rash / allergy symptoms, 0 Refill(s) Fluoxetine 0 Yes 60 mg, PO, M emoria 8-21 Daily, 0 l 15:00: Refill(s) Zanaflex Yes 4 mg, PO, Rao caity 8-21 Q8H, 0 l 15:00: Refill(s) oxyCODONE Yes 10 mg = 1 Mem oria 10 mg oral 8-21 tab, PO, l tablet, 15:00: Q6H, 0 immediate Refill(s) release gabapentin 0 Yes 600 mg, Rao caity 8-21 PO, TID, 0 l 15:00: Refill(s) Ambien Yes 5 mg, PO, Memori a 8- Bedtime, 0 l 15:00: Refill(s) Lidocaine 0 Yes See Memoria 8 Instructio l 15:00: ns, 5 % Transderma l q12, 0 Refill(s) Protonix Yes 40 mg, PO, Mem oria 8-21 Daily, 0 l 15:00: Refill(s) Ondansetron Yes 4 mg = 1 Me moria 4 MG Oral 8-21 tab, PO, l Tablet 15:00: Q8H, 0 [Zofran] Refill(s) Hydroxyzine Yes 25 mg = 1 M emoria 8-21 tab, PO, l 15:00: Q6H, PRN rash / allergy symptoms, 0 Refill(s) Fluoxetine Yes 60 mg, PO, M emoria 8-21 Daily, 0 l 15:00: Refill(s) Zanaflex 0 Yes 4 mg, PO, Rao caity 8-21 Q8H, 0 l 15:00: Refill(s) oxyCODONE Yes 10 mg = 1 Mem oria 10 mg oral 8-21 tab, PO, l tablet, 15:00: Q6H, 0 00 Refill(s) release gabapentin 2019-0 Yes 600 mg, Rao caity 8-21 PO, TID, 0 l 15:00: Refill(s) Ambien 20190 Yes 5 mg, PO, Memori a 8-21 Bedtime, 0 l 15:00: Refill(s) Lidocaine 2019-0 Yes See Memoria 8 Instructio l 15:00: ns, 5 % Transderma l q12, 0 Refill(s) Protonix 2019-0 Yes 40 mg, PO, Mem oria 8-21 Daily, 0 l 15:00: Refill(s) Ondansetron Yes 4 mg = 1 Me moria 4 MG Oral 8 tab, PO, l Tablet 15:00: Q8H, 0 [Zofran] 00 Refill(s) Hydroxyzine Yes 25 mg = 1 M emoria 8- tab, PO, l 15:00: Q6H, PRN rash / allergy symptoms, 0 Refill(s) Fluoxetine 0 Yes 60 mg, PO, M emoria 8-21 Daily, 0 l 15:00: Refill(s) Zanaflex 0 Yes 4 mg, PO, Rao caity 8-21 Q8H, 0 l 15:00: Refill(s) oxyCODONE Yes 10 mg = 1 Mem oria 10 mg oral 8- tab, PO, l tablet, 15:00: Q6H, 0 Refill(s) release gabapentin 20190 Yes 600 mg, Rao caity 8-21 PO, TID, 0 l 15:00: Refill(s) Ambien 20190 Yes 5 mg, PO, Memori a 8-21 Bedtime, 0 l 15:00: Refill(s) Lidocaine 2018-0 Yes See Memoria 8-21 Instructio l 15:00: ns, 5 % Transderma l q12, 0 Refill(s) Protonix 20190 Yes 40 mg, PO, Mem oria 8-21 [...] 8-21 Daily, 0 l 15:00: Refill(s) Zanaflex 0 Yes 4 mg, PO, Rao caity 8-21 Q8H, 0 l 15:00: Refill(s) oxyCODONE Yes 10 mg = 1 Mem oria 10 mg oral 8-21 tab, PO, l tablet, 15:00: Q6H, 0 [place] Refill(s) release gabapentin 0 Yes 600 mg, Rao caity 8- PO, TID, 0 l 15:00: Refill(s) Ambien 0 Yes 5 mg, PO, Memori a 8 Bedtime, 0 l 15:00: Refill(s) Lidocaine 20190 Yes See Memoria 07-18 Instructio l 15:00: ns, 5 % Transderma l q12, 0 Refill(s) Protonix 0 Yes 40 mg, PO, Mem oria 8 Daily, 0 l 15:00: Refill(s) Ondansetron Yes 4 mg = 1 Me moria 4 MG Oral 8-21 tab, PO, l Tablet 15:00: Q8H, 0 [Zofran] Refill(s) Hydroxyzine 2019 Yes 25 mg = 1 M emoria 8-21 tab, PO, l 15:00: Q6H, PRN rash / allergy symptoms, 0 Refill(s) Fluoxetine 20190 Yes 60 mg, PO, M emoria 8-21 Daily, 0 l 15:00: Refill(s) Zanaflex 0 Yes 4 mg, PO, Rao caity 8-21 Q8H, 0 l 15:00: Refill(s) oxyCODONE Yes 10 mg = 1 Mem oria 10 mg oral 8-21 tab, PO, l tablet, 15:00: Q6H, 0 immediate Refill(s) release gabapentin 2019-0 Yes 600 mg, Rao caity 8-21 PO, TID, 0 l 15:00: Refill(s) Ambien Yes 5 mg, PO, Memori a 8-21 Bedtime, 0 l 15:00: Refill(s) Lidocaine 0 Yes See Memoria 8 Instructio l 15:00: ns, 5 % Transderma l q12, 0 Refill(s) Protonix 0 Yes 40 mg, PO, Mem oria 8-21 Daily, 0 l 15:00: Refill(s) Ondansetron Yes 4 mg = 1 Me moria 4 MG Oral 8-21 tab, PO, l Tablet 15:00: Q8H, 0 [Zofran] Refill(s) Hydroxyzine 0 Yes 25 mg = 1 M emoria 8-21 tab, PO, l 15:00: Q6H, PRN rash / allergy symptoms, 0 Refill(s) Fluoxetine 0 Yes 60 mg, PO, M emoria 8-21 Daily, 0 l 15:00: Refill(s) Zanaflex 0 Yes 4 mg, PO, Rao caity 8-21 Q8H, 0 l 15:00: Refill(s) oxyCODONE Yes 10 mg = 1 Mem oria 10 mg oral 8-21 tab, PO, l tablet, 15:00: Q6H, 0 immediate Refill(s) release gabapentin 20190 Yes 600 mg, Rao caity 8-21 PO, TID, 0 l 15:00: Refill(s) Ambien 0 Yes 5 mg, PO, Memori a 8-21 Bedtime, 0 l 15:00: Refill(s) Lidocaine 0 Yes See Memoria 821 Instructio l 15:00: ns, 5 % Transderma [...] 8-21 Daily, 0 l 15:00: Refill(s) Zanaflex 2019-0 Yes 4 mg, PO, Rao caity 8-21 Q8H, 0 l 15:00: Refill(s) oxyCODONE 0 Yes 10 mg = 1 Mem oria 10 mg oral 8-21 tab, PO, l tablet, 15:00: Q6H, 0 Refill(s) release gabapentin 0 Yes 600 mg, Rao caity 821 PO, TID, 0 l 15:00: Refill(s) Ambien 20190 Yes 5 mg, PO, Memori a 8- Bedtime, 0 l 15:00: Refill(s) Lidocaine 2019-0 Yes See Memoria 821 Instructio l 15:00: ns, 5 % Transderma [...] tab, PO, l tablet, 15:00: Q6H, 0 immediate Refill(s) release gabapentin 20190 Yes 600 mg, Rao caity 8-21 PO, TID, 0 l 15:00: Refill(s) Ambien 0 Yes 5 mg, PO, Memori a 8- Bedtime, 0 l 15:00: Refill(s) Lidocaine 20190 Yes See Memoria 8 Instructio l 15:00: ns, 5 % Transderma l q12, 0 Refill(s) Protonix 0 Yes 40 mg, PO, Mem oria 8 Daily, 0 l 15:00: Refill(s) Ondansetron 0 Yes 4 mg = 1 Me moria 4 MG Oral 8-21 tab, PO, l Tablet 15:00: Q8H, 0 [Zofran] Refill(s) Hydroxyzine 0 Yes 25 mg = 1 M emoria 8-21 tab, PO, l 15:00: Q6H, PRN rash / allergy symptoms, 0 Refill(s) Fluoxetine 0 Yes 60 mg, PO, M emoria 8-21 Daily, 0 l 15:00: Refill(s) Zanaflex 20190 Yes 4 mg, PO, Rao caity 8-21 Q8H, 0 l 15:00: Refill(s) oxyCODONE 0 Yes 10 mg = 1 Mem oria 10 mg oral 8-21 tab, PO, l tablet, 15:00: Q6H, 0 immediate Refill(s) release gabapentin 2019-0 Yes 600 mg, [...] tab, PO, l Tablet 15:00: Q8H, 0 [place] [Zofran] Refill(s) Hydroxyzine 2019- Yes 25 mg = 1 M emoria 8-21 tab, PO, l 15:00: Q6H, PRN rash / allergy symptoms, 0 Refill(s) Fluoxetine 2019-0 Yes 60 mg, PO, M emoria 8-21 Daily, 0 l 15:00: Refill(s) Zanaflex 2019-0 Yes 4 mg, PO, Rao caity 8-21 Q8H, 0 l 15:00: Refill(s) oxyCODONE 2018- Yes 10 mg = 1 Mem oria 10 mg oral 8-21 tab, PO, l tablet, 15:00: Q6H, 0 [place] Refill(s) release gabapentin 2019-0 Yes 600 mg, Rao caity 8-21 PO, TID, 0 l 15:00: Refill(s) Ambien 2019-0 Yes 5 mg, PO, Memori a 821 Bedtime, 0 l 15:00: Refill(s) Lidocaine 2019-0 [...] rash / allergy symptoms, 0 Refill(s) Fluoxetine Yes 60 mg, PO, M emoria 8-21 Daily, 0 l 15:00: Refill(s) Zanaflex 2019 Yes 4 mg, PO, Rao caity 8- Q8H, 0 l 15:00: Refill(s) Zanaflex 0 Yes 4 mg, PO, Rao caity 8-21 Q8H, 0 l 15:00: Refill(s) oxyCODONE Yes 10 mg = 1 Mem oria 10 mg oral 8- tab, PO, l tablet, 15:00: Q6H, 0 immediate Refill(s) release oxyCODONE Yes 10 mg = 1 Mem oria 10 mg oral 8-21 tab, PO, l tablet, 15:00: Q6H, 0 immediate Refill(s) release gabapentin Yes 600 mg, Rao caity 8- PO, TID, 0 l 15:00: Refill(s) Ambien Yes 5 mg, PO, Memori a 07-18 Bedtime, 0 l 15:00: Refill(s) Lidocaine 0 Yes See Memoria 07-18 Instructio l 15:00: ns, 5 % Transderma l q12, 0 Refill(s) Protonix Yes 40 mg, PO, Mem oria 8 Daily, 0 l 15:00: Refill(s) Ondansetron Yes 4 mg = 1 Me moria 4 MG Oral 8-21 tab, PO, l Tablet 15:00: Q8H, 0 [Zofran] Refill(s) Hydroxyzine Yes 25 mg = 1 M emoria 8-21 tab, PO, l 15:00: Q6H, PRN rash / allergy symptoms, 0 Refill(s) Fluoxetine Yes 60 mg, PO, M emoria 8-21 Daily, 0 l 15:00: Refill(s) gabapentin 2019-0 Yes 600 mg, Rao caity 8-21 PO, TID, 0 l 15:00: Refill(s) Ambien 20190 Yes 5 mg, PO, Memori a 8- Bedtime, 0 l 15:00: Refill(s) Zanaflex 2019 Yes 4 mg, PO, Rao caity 8- Q8H, 0 l 15:00: Refill(s) oxyCODONE 2019 Yes 10 mg = 1 Mem oria 10 mg oral 8 tab, PO, l tablet, 15:00: Q6H, 0 Refill(s) release gabapentin Yes 600 mg, Rao caity 8-21 PO, TID, 0 l 15:00: Refill(s) Ambien Yes 5 mg, PO, Memori a 8 Bedtime, 0 l 15:00: Refill(s) Lidocaine 0 Yes See Memoria 07-18 Instructio l 15:00: ns, 5 % Transderma l q12, 0 Refill(s) Protonix Yes 40 mg, PO, Mem oria 8 Daily, 0 l 15:00: Refill(s) Ondansetron Yes 4 mg = 1 Me moria 4 MG Oral 07-18 tab, PO, l Tablet 15:00: Q8H, 0 [Zofran] Refill(s) Hydroxyzine Yes 25 mg = 1 M emoria 07-18 tab, PO, l 15:00: Q6H, PRN rash / allergy symptoms, 0 Refill(s) Fluoxetine Yes 60 mg, PO, M emoria 8-21 Daily, 0 l 15:00: Refill(s) Lidocaine 2018-0 Yes See Memoria 8 Instructio l 15:00: ns, 5 % Transderma l q12, 0 Refill(s) Protonix 2018-0 Yes 40 mg, PO, Mem oria 8-21 Daily, 0 l 15:00: Refill(s) Zanaflex 2019-0 Yes 4 mg, PO, Rao caity 8-21 Q8H, 0 l 15:00: Refill(s) oxyCODONE 2019 Yes 10 mg = 1 Mem oria 10 mg oral 8-21 tab, PO, l tablet, 15:00: Q6H, 0 [place] 00 Refill(s) release gabapentin 2019-0 Yes 600 mg, Rao caity 8- PO, TID, 0 l 15:00: Refill(s) Ambien 20190 Yes 5 mg, PO, Memori a 07-18 Bedtime, 0 l 15:00: Refill(s) Lidocaine 2019-0 Yes See Memoria 07-18 Instructio l 15:00: ns, 5 % Transderma l q12, 0 Refill(s) Protonix 20190 Yes 40 mg, PO, Mem oria 8 Daily, 0 l 15:00: Refill(s) Ondansetron 2019 Yes 4 mg = 1 Me moria 4 MG Oral 8 tab, PO, l Tablet 15:00: Q8H, 0 [place] [Zofran] 00 Refill(s) Hydroxyzine 20190 Yes 25 mg = 1 M emoria 8-21 tab, PO, l 15:00: Q6H, PRN rash / allergy symptoms, 0 Refill(s) Ondansetron 20190 Yes 4 mg = 1 Me moria 4 MG Oral 8-21 tab, PO, l Tablet 15:00: Q8H, 0 [Zofran] Refill(s) Fluoxetine 2019-0 Yes 60 mg, PO, M emoria 8-21 Daily, 0 l 15:00: Refill(s) Hydroxyzine 2019-0 Yes 25 mg = 1 M emoria 8-21 tab, PO, l 15:00: Q6H, PRN rash / allergy symptoms, 0 Refill(s) Fluoxetine 2019-0 Yes 60 mg, PO, M emoria 8-21 Daily, 0 l 15:00: Refill(s) Immunizations Ordered Filled Immunization Date Status Comments [facility] e Immunization Name Name SARS-COV-2 COVID-19 2021-04-06 Completed [facility] V[facility] 00:00[facility]00 [facility] SARS-COV-2 COVID-19 2021-04-06 Completed [facility] MODERNA VACCINE 00:00:00 [facility] SARS-COV-2 COVID-19 2021-04-06 Completed [facility] MODERNA VACCINE 00:00:00 [facility] SARS-COV-2 COVID-19 2021-04-06 Completed [facility] MODERNA VACCINE 00:00:00 [facility] SARS-COV-2 COVID-19 2021-04-06 Completed [facility] of MODERNA VACCINE 00:00:00 [facility] [id number]-[facility] 2021-04-06 Completed Memor ial Victor Hugo RNA-1273vaxMODERNA< 00:00:00 sup>1</sup> [id number]-[facility] 2021-04-06 Completed Memor ial [place] RNA-1273vaxMODERNA< 00:00:00 sup>1</sup> [id number]-[facility] 2021-04-06 Completed Memor ial [place] RNA-1273vaxMODERNA< 00:00:00 sup>1</sup> [id number]-[facility] 2021-04-06 Completed Memor ial [place] RNA-1273vaxMODERNA< 00:00:00 sup>1</sup> [id number]-[facility] 2021-04-06 Completed Memor ial Victor Hugo RNA-1273vaxMODERNA< 00:00:00 sup>1</sup> [id number]-[facility] 2021-04-06 Completed Memor ial [place] RNA-1273vaxMODERNA< 00:00:00 sup>1</sup> [id number] 2021-04-06 Completed Memor ial [place] Hugo RNA-1273vaxMODERNA< 00:00:00 sup>1</sup> [id number]-[facility] 2021-04-06 Completed Memor ial [place] RNA-1273vaxMODERNA< 00:00:00 sup>1</sup> [id number]- 2021-04-06 Completed Memor ial [place] RNA-1273vaxMODERNA< 00:00:00 sup>1</sup> [id number] 2021-04-06 Completed Memor ial [place] Hugo RNA-1273vaxMODERNA< 00:00:00 sup>1</sup> [id number]- 2021-04-06 Completed Memor ial [place] RNA-1273vaxMODERNA< 00:00:00 sup>1</sup> [id number]- 2021-04-06 Completed Memor ial [place] Hugo RNA-1273vaxMODERNA< 00:00:00 sup>1</sup> [id number]-[facility] 2021-04-06 Completed Memor ial [place] RNA-1273vaxMODERNA< 00:00:00 sup>1</sup> [id number]-[facility] 2021-04-06 Completed Memor ial [place] RNA-1273vaxMODERNA< 00:00:00 sup>1</sup> [id number]- 2021-04-06 Completed [facility] [place] RNA-1273vaxMODERNA< 00:00:00 sup>1</sup> [id number]-[facility] 2021-04-06 Completed Memor ial [place] RNA-1273vaxMODERNA< 00:00:00 sup>1</sup> [id number]- 2021-04-06 Completed Memor ial [place] RNA-1273vaxMODERNA< 00:00:00 sup>1</sup> [id number]- 2021-04-06 Completed Memor ial [place] RNA-1273vaxMODERNA< 00:00:00 sup>1</sup> [id number]-[facility] 2021-04-06 Completed Memor ial Victor Hugo RNA-1273vaxMODERNA< 00:00:00 sup>1</sup> [id number] 2021-04-06 Completed Olimpiaindira Gay RNA-1273vaxMODERNA< 00:00:00 sup>1</sup> SARS-COV-2 COVID-19 2021-03-12 Completed [facility] MODERNA VACCINE 00:00:00 [facility] SARS-COV-2 COVID-19 2021-03-12 Completed [facility] of MODERNA VACCINE 00:00:00 [facility] SARS-COV-2 COVID-19 2021-03-12 Completed [facility] of MODERNA VACCINE 00:00:00 [facility] SARS-COV-2 COVID-19 2021-03-12 Completed [facility] of MODERNA VACCINE 00:00:00 [facility] SARS-COV-2 COVID-19 2021-03-12 Completed [facility] rs[facility] of MODERNA VACCINE 00:00:00 [facility] Influenza Virus 2020-11-28 Completed [facility] Vaccine (3[facility] yrs) 00:00:00 [facility] Influenza Virus 2020-11-28 Completed Universit y of Vaccine (3+ yrs) 00:00:00 [facility] Influenza Virus 2020-11-28 Completed Universit y of Vaccine (3+ yrs) 00:00:00 [facility] Influenza Virus 2020-11-28 Completed Universit y of Vaccine (3+ yrs) 00:00:00 [facility] Influenza Virus 2020-11-28 Completed Universit y of Vaccine (3+ yrs) 00:00:00 [facility] Influenza Virus 2017-10-06 Completed Universit y of Vaccine Quad IM, 00:00:00 [facility] dical Preserv and ABX Branch Free 2-64 YRS Pneumococcal 13 2017-10-06 Completed Universit y of Conjugate, PCV13 00:00:00 [facility] dical (Prevnar 13) Branch Influenza Virus 2017-10-06 Completed Universit y of Vaccine Quad IM, 00:00:00 [facility] dical Preserv and ABX Branch Free 2-64 YRS Pneumococcal 13 2017-10-06 Completed Universit y of Conjugate, PCV13 00:00:00 [facility] dical (Prevnar 13) Branch Influenza Virus 2017-10-06 Completed Universit y of Vaccine Quad IM, 00:00:00 [place] dical Preserv and ABX Branch Free 2-64 YRS Pneumococcal 13 2017-10-06 Completed Universit y of Conjugate, PCV13 00:00:00 [facility] dical (Prevnar 13) Branch Influenza Virus 2017-10-06 Completed Universit y of Vaccine Quad IM, 00:00:00 [facility] dical Preserv and ABX Branch Free 2-64 YRS Pneumococcal 13 2017-10-06 Completed Universit y of Conjugate, PCV13 00:00:00 [facility] dical (Prevnar 13) Branch Influenza Virus 2017-10-06 Completed Universit y of Vaccine Quad IM, 00:00:00 [facility] dical Preserv and ABX Branch Free 2-64 YRS Pneumococcal 13 2017-10-06 Completed Universit y of Conjugate, PCV13 00:00:00 [facility] dical (Prevnar 13) [place] Vital Signs Vital Name Observation Time Observation Value Comments Source Systolic blood 2021-08-14 15:39:00 130 [facility] Diastolic blood 2021-08-14 15:39:00 81 [facility] Heart rate 2021-08-14 15:39:00 76 /min [facility] Body temperature 2021-08-14 15:39:00 37 [facility] Respiratory rate 2021-08-14 15:39:00 18 /min [facility] 2021-08-14 15:39:00 162.6 cm [facility] Body weight 2021-08-14 15:39:00 53.933 kg [facility] BMI 2021-08-14 15:39:00 20.41 kg/m2 [facility] Oxygen saturation in 2021-08-14 15:39:00 100 /min [facility] Arterial blood by [facility] Pulse oximetry Branch Systolic (mm Hg) 2021-04-08 14:16:00 [facility] Diastolic (mm Hg) 2021-04-08 14:16:00 [facility] jaswinder Gay Heart Rate 2021-04-08 14:16:00 [facility] Respitory Rate 2021-04-08 14:16:00 [facility] Height 2021-04-08 14:16:00 162.56 cm [facility] Weight 2021-04-08 14:16:00 [facility] BMI Calculated 2021-04-08 14:16:00 [facility] Systolic (mm Hg) 2020-12-22 20:47:00 [facility] Diastolic (mm Hg) 2020-12-22 20:47:00 [facility] Height 2020-12-22 20:47:00 162.56 cm [facility] Weight 2020-12-22 20:47:00 [facility] BMI Calculated 2020-12-22 20:47:00 [facility] Systolic (mm Hg) 2020-07-31 18:42:00 [facility] Diastolic (mm Hg) 2020-07-31 18:42:00 [facility] Heart Rate 2020-07-31 18:42:00 [facility] Respitory Rate 2020-07-31 18:42:00 [facility] Height 2020-07-31 18:42:00 162.56 cm [facility] Weight 2020-07-31 18:42:00 [facility] BMI Calculated 2020-07-31 18:42:00 [facility] Temperature Oral (F) 2020-07-31 18:42:00 96.9 F [facility] Systolic (mm Hg) 2020-01-22 17:49:00 [facility] Diastolic (mm Hg) 2020-01-22 17:49:00 [facility] Heart Rate 2020-01-22 17:49:00 [facility] Respitory Rate 2020-01-22 17:49:00 [facility] Height 2020-01-22 17:49:00 162.56 cm [facility] Weight 2020-01-22 17:49:00 [facility] BMI Calculated 2020-01-22 17:49:00 [facility] Systolic (mm Hg) 2020-01-11 21:53:00 [facility] Diastolic (mm Hg) 2020-01-11 21:53:00 [facility] Heart Rate 2020-01-11 21:53:00 [facility] Height 2020-01-11 21:53:00 162.56 cm [facility] Weight 2020-01-11 21:53:00 [facility] BMI Calculated 2020-01-11 21:53:00 [facility] Systolic (mm Hg) 2019-12-06 22:16:00 Rao [facility] Diastolic (mm Hg) 2019-12-06 22:16:00 [facility] Heart Rate 2019-12-06 22:16:00 [facility] Respitory Rate 2019-12-06 22:16:00 [facility] Height 2019-12-06 22:16:00 162.56 cm [facility] Weight 2019-12-06 22:16:00 [facility] BMI Calculated 2019-12-06 22:16:00 [facility] BMI Calculated 2019-11-09 17:41:00 [facility] Height 2019-11-09 17:41:00 162.56 cm [facility] Weight 2019-11-09 17:41:00 [facility] Systolic (mm Hg) 2019-09-19 18:12:00 [facility]ao [facility] Diastolic (mm Hg) 2019-09-19 18:12:00 [facility] Heart Rate 2019-09-19 18:12:00 [facility] Respitory Rate 2019-09-19 18:12:00 [facility] Height 2019-09-19 18:12:00 162.56 cm [facility] Weight 2019-09-19 18:12:00 [facility] BMI Calculated 2019-09-19 18:12:00 [facility] Systolic (mm Hg) 2019-08-23 19:05:00 Rao [facility] Diastolic (mm Hg) 2019-08-23 19:05:00 [facility] Heart Rate 2019-08-23 19:05:00 [facility] Respitory Rate 2019-08-23 19:05:00 [facility] Height 2019-08-23 19:05:00 162.56 cm [facility] Weight 2019-08-23 19:05:00 [facility] BMI Calculated 2019-08-23 19:05:00 [facility] Systolic (mm Hg) 2019-07-18 14:57:00 [facility] Diastolic (mm Hg) 2019-07-18 14:57:00 [facility] Heart Rate 2019-07-18 14:57:00 Yuliana Gay Respitory Rate 2019-07-18 14:57:00 May Washburn Height 2019-07-18 14:57:00 162.56 cm Yuliana Gay Weight 2019-07-18 14:57:00 Yuliana Gay BMI Calculated 2019-07-18 14:57:00 May Washburn Procedures Procedure Date / Time Performing Clinician Source Performed ASSIGNMENT OF BENEFITS 2021-08-14 15:11:27 Doctor Unassigned, No [facility] Arthroplasty [facility] Laminectomy [facility] Encounters Start End Encounter Admission Attending Care Care Encounter Source Date/Time Date/Time Type Type Clinicians Facility Department ID 2021-06-08 Inpatient EL Eulogio, [facility] DAYS [id number] [facility] 10:30:00 Norco [id number] [facility] 2021-06-05 Inpatient EL Eulogio, [facility] DAYS [id number] [facility] 11:30:00 Norco [id number] [facility] 2021-05-19 Inpatient Eulogio, [facility] DAYS [id number] [facility] 07:30:00 Norco [id number] [facility] 2021-05-15 Inpatient EL Eulogio, [facility] DAYS [id number] [facility] 14:00:00 Norco [id number] [facility] 2022-08-20 2022-08-20 Outpatient TONY OLGUIN [facility] [id number] 10:30:00 10:30:00 [id number] [facility] 2022-08-20 2022-08-20 Outpatient TONY OLGUIN [facility] [id number] [facility] 10:30:00 10:30:00 [facility] 2021-08-31 2021-08-31 Outpatient EULOGIO, [facility] [id number] [place] 00:00:00 00:00:00 [place] [address] 2021-08-27 2021-08-27 Outpatient EULOGIO, [facility] [id number] [place] 00:00:00 00:00:00 [place] [address] 2021-08-24 2021-08-24 Outpatient EULOGIO, [facility] [id number] [place] 00:00:00 00:00:00 B[place] 384 Method i 2021-08-20 2021-08-20 Outpatient EULOGIO, [facility] [id number] [address] [place] 00:00:00 00:00:00 B[place] 342 Method i 2021-08-19 2021-08-19 Outpatient EULOGIO, [facility] [id number] [address] [place] 00:00:00 00:00:00 B[place] 343 Method i 2021-08-14 2021-08-14 Office Tony Das [facility] [id number] [facility] 10:12:38 10:59:24 Visit Cezar Lopez [id number] it y of [facility] 4.2.7.2.686 Formerly [facility] [phone] [address] 2021-08-14 2021-08-14 Outpatient R TONY DAS [facility] [id number] [facility] 10:15:00 10:15:00 ity of [facility] 2021-08-14 2021-08-14 Orders Doctor [place] [id number] [facility] 00:00:00 00:00:00 Only Unassigned, LISA [id number] ity of [facility] 4.2.7.2.686 [facility] [id number] [address] 2021-08-10 2021-08-10 Outpatient EULOGOI, [facility] [id number] [address] [place] 00:00:00 00:00:00 BEVERLY 230 Method i 2021-08-06 2021-08-06 Outpatient EULOGIO, [facility] [id number] [address] [place] 00:00:00 00:00:00 BEVERLY 205 Method i 2021-07-30 2021-07-30 Outpatient EULOGIO, [facility] [id number] [address] [place] 00:00:00 00:00:00 BEVERLY 805 Method i 2021-07-27 2021-07-27 Outpatient EULOGIO, [facility] [id number] [place] 00:00:00 00:00:00 BEVERLY 774 Method i 2021-07-23 2021-07-23 Outpatient EULOGIO, [facility] [id number] [address] [place] 00:00:00 00:00:00 BEVERLY 727 Method i 2021-07-20 2021-07-20 Outpatient EULOGIO, [facility] [id number] [address] [place] 00:00:00 00:00:00 BEVERLY 774 Method i 2021-07-09 2021-07-09 Outpatient EULOGIO, [facility] [id number] [address] [place] 00:00:00 00:00:00 BEVERLY 643 Method i 2021-07-08 2021-07-08 Outpatient EULOGIO, [facility] [id number] [place] 00:00:00 00:00:00 B[place]LY 592 Method i 2021-07-02 2021-07-02 Outpatient EULOGIO, [facility] [id number] [place] 00:00:00 00:00:00 BEVERLY 982 Method i 2021-06-23 2021-06-23 Outpatient EULOGIO, [facility] [id number] [address] [place] 00:00:00 00:00:00 BEVERLY 244 Method i 2021-06-09 2021-06-11 Inpatient RODNEY Patterson, [facility]L MEDI.01 [id number] [facility] 16:03:00 15:30:00 Reji [id number] [facility] 2021-06-09 2021-06-09 Outpatient [facility] [id number] [facility] 16:08:00 16:08:00 [id number] [facility] 2021-04-08 2021-04-09 Outpatient nullFlavo MNA [id number] [facility] 14:00:00 04:59:59 r Neurology 16 l Elvin Gay 2020-12-26 2020-12-28 Outside nullFlavo MNA [id number] [facility] 17:32:20 05:59:59 Medical r Neurology 00 l Records Elvin Gay 2020-12-22 2020-12-23 Outpatient nullFlavo MNA [id number] [facility] 20:30:00 05:59:59 r Neurology 15 l Elvin Gay 2020-12-04 2020-12-04 Ambulatory nullFlavo MNA [id number] [facility] 19:15:00 19:15:00 Pre-Reg r Neurology 14 l Elvin Rashidann 2020-09-30 2020-09-30 Outpatient EULOGIO, [facility] [id number] [address] [place] 00:00:00 00:00:00 B[place]LY Georgiana Robledo i 2020-07-31 2020-08-01 Outpatient nullFlavo MNA [id number] [facility] 18:15:00 04:59:59 r Neurology 13 l [place] [facility] 2020-07-29 2020-07-29 Ambulatory nullFlavo MNA [id number] [facility] 16:15:00 16:15:00 Pre-Reg r Neurology 12 l [place] [facility] 2020-06-06 2020-06-06 Ambulatory nullFlavo MNA [id number] [facility] 18:00:00 18:00:00 Pre-Reg r Neurology 11 l [place] [facility] 2020-03-12 2020-03-13 Outpatient nullFlavo MNA [id number] [facility] 18:45:00 04:59:59 r Neurology 09 l [place] [facility] 2020-01-22 2020-01-23 Outpatient nullFlavo MNA [id number] [facility] 17:45:00 05:59:59 r Neurology 10 l [place] [facility] 2020-01-11 2020-01-12 Outpatient nullFlavo MNA [id number] [facility] 20:15:00 05:59:59 r Neurology 08 l [place] [facility] 2020-01-11 2020-01-11 Ambulatory nullFlavo MNA [id number] [facility] 20:15:00 20:15:00 Pre-Reg r Neurology 07 l [place] [facility] 2019-12-06 2019-12-07 Outpatient nullFlavo MNA [id number] [facility] 22:00:00 05:59:59 r Neurology 06 l [place] [facility] 2019-12-05 2019-12-05 Ambulatory nullFlavo MNA [id number] [facility] 14:15:00 14:15:00 Pre-Reg r Neurology 05 l [place] [facility] 2019-11-16 2019-11-16 Ambulatory nullFlavo MNA [id number] [facility] 19:00:00 19:00:00 Pre-Reg r Neurology 03 l [place] 2019-11-09 2019-11-10 Outpatient nullFlavo MNA [id number] [facility] 17:30:00 05:59:59 r Neurology 04 l [place] [facility] 2019-09-19 2019-09-20 Outpatient nullFlavo MNA [id number] [facility] 18:00:00 04:59:59 r Neurology 02 l Elvin Gay 2019-08-23 2019-08-24 Outpatient nullFlavo MNA [id number] [facility] 18:30:00 04:59:59 r Neurology 01 l Elvin Gay 2019-07-18 2019-07-19 Outpatient nullFlavo MNA [id number] [facility] 14:15:00 04:59:59 r Neurology 00 l Elvin Gay Results Test Description Test Time Test Comments Results Result Comments Source INFECTION CONTROL PROFILE 2021-06-13 18:10:00 Test Item Value Reference Range Interpretation Comme nts HEPATITIS C RNA BY Negative Negative Negative: HCV RNA Not PCR-QUAL (test code = Detect edPerformed At: BN HCVRNAPCR) [facility] [id number] [facility], [place] [id number] ra Danielle SALINAS Ph:[phone] AG HEPATITIS B SURFACE NON REACTIVE INDEX NonReactive (test code = HBSAG) AB HIV 1 2 (test code NONREACTIVE INDEX NONREACTIVE = [id number]) HIV 1/2 RAPID SCREEN NONREACTIVE NONREACTIVE Critic al result called to (test code = [id number]) TED BROTHERS RN/Foreign ColonLAB.UN at 165 9 06/09/21Nmy arcos back resut and tech confir med it's correct? Y AG HIV1 P24 (test code NONREACTIVE NONREACTIVE = [id number]) BASIC METABOLIC [id number] 07:47:00 Test Item Value Reference Range Interpretation Comments SODIUM (test code = NA) 137 mEq/L 134-147 N POTASSIUM (test code = 3.7 mEq/L 3.4-5.0 N K) CHLORIDE (test code = 106 mEq/L 100-108 N CL) CARBON DIOXIDE (test 27 mEq/l 21-33 N code = CO2) ANION GAP (test code = 8 0-20 N GAP) GLUCOSE (test code = 111 mg/dL 70-110 H GLU) BLOOD UREA NITROGEN 7 mg/dL 7-18 N (test code = BUN) GLOMERULAR FILTRATION 86.6 90-95 L Units of measure = RATE (test code = GFR) ml/mi n/1.73 m2 CREATININE (test code = 0.7 mg/dL 0.6-1.3 N CREAT) CALCIUM (test code = 9.0 mg/dL 8.0-10.5 N CA) [id number] 07:47:00 Test Item Value Reference Range Interpretation Comments MAGNESIUM (test code = MAG) 1.91 mg/dL 1.80-2.40 N CBC W/AUTO [id number] 07:13:00 Test Item Value Reference Range Interpretation Comments WHITE BLOOD CELL (test code = 14.4 x10 3/uL 4.5-11.0 H WBC) RED BLOOD CELL (test code = 3.96 x10 6/uL 3.54-5.02 N RBC) HEMOGLOBIN (test code = HGB) 9.4 g/dL 11.0-15.0 L HEMATOCRIT (test code = HCT) 30.2 % 33.0-45.0 L MEAN CELL VOLUME (test code = 76.3 fL 81.0-99.0 L MCV) MEAN CELL HGB (test code = 23.7 pg 27.0-33.0 L MCH) MEAN CELL HGB CONCETRATION 31.1 g/dL 33.0-37.0 L (test code = MCHC) RED CELL DISTRIBUTION WIDTH CV 18.7 % 11.5-14.5 H (test code = RDW) RED CELL DISTRIBUTION WIDTH SD 51.8 fL 37.0-54.0 N (test code = RDW-SD) PLATELET COUNT (test code = 436 x10 3/uL 150-400 H PLT) MEAN PLATELET VOLUME (test 9.9 fL 7.0-9.0 H code = MPV) NEUTROPHIL % (test code = NT%) 72.0 % 56.0-77.0 N IMMATURE GRANULOCYTE % (test 0.7 % 0.0-2.0 N code = IG%) LYMPHOCYTE % (test code = LY%) 17.4 % 14.0-32.0 N MONOCYTE % (test code = MO%) 9.6 % 4.8-9.0 H EOSINOPHIL % (test code = EO%) 0.0 % 0.3-3.7 L BASOPHIL % (test code = BA%) 0.3 % 0.0-2.0 N NUCLEATED RBC % (test code = 0.0 % 0-0 N NRBC%) NEUTROPHIL # (test code = NT#) 10.35 x10 3/uL 2.0-7.6 H IMMATURE GRANULOCYTE # (test 0.10 x10 3/uL 0.00-0.03 H code = IG#) LYMPHOCYTE # (test code = LY#) 2.50 x10 3/uL 1.0-3.8 N MONOCYTE # (test code = MO#) 1.38 x10 3/uL 0.1-0.8 H EOSINOPHIL # (test code = EO#) 0.00 x10 3/uL 0.0-0.2 N BASOPHIL # (test code = BA#) 0.04 x10 3/uL 0.0-0.2 N NUCLEATED RBC # (test code = 0.00 x10 3/uL 0.0-0.1 N NRBC#) MANUAL DIFF REQUIRED (test NO code = MDIFF) INFECTION CONTROL [id number] 17:05:00 Test Item Value Reference Range Interpretation Comments HEPATITIS C RNA BY PCR-QUAL (test code = HCVRNAPCR) AG HEPATITIS B NON REACTIVE INDEX NonReactive SURFACE (test code = HBSAG) AB HIV 1 2 (test NONREACTIVE INDEX NONREACTIVE code = [id number]) HIV 1/2 RAPID NONREACTIVE NONREACTIVE Critical resu lt SCREEN (test code called to KEHINDE = [id number]) ANGELA BROTHERS/Riya brewer G.LAB.UN at 165 9 06/09/21Nurse read back resut and tech confirmed it's correct? Y AG HIV1 P24 (test NONREACTIVE NONREACTIVE code = XJU7Z90) INFECTION CONTROL [id number] 17:01:00 Test Item Value Reference Range Interpretation Comments HEPATITIS C RNA BY PCR-QUAL (test code = HCVRNAPCR) AG HEPATITIS B INDEX NonReactive SURFACE (test code = HBSAG) AB HIV 1 2 (test INDEX NONREACTIVE code = MYW57NZ) HIV 1/2 RAPID SCREEN NONREACTIVE NONREACTIVE Critic al result (test code = called to TED Longoria [id number]) ANGELA BROTHERS/Riya brewer G.LAB.UN at 165 9 06/09/21Nurse r ead back resut and tech confirmed it's correct? Y AG HIV1 P24 (test NONREACTIVE NONREACTIVE code = XAC7I07) COVID 19 Asymptomatic IH [id number] 13:43:00 Test Item Value Reference Range Interpretation Comments COVID 19 Asymptomatic Negative Negative A nega tive result is IH AG (test code = presumpti ve and should COVNONPUIAG) be confirmedwit h an FDA authorized mole cular assay, if bhupinder paredes forpatient toya clifford.A positive result does not rule out co-inf ections withother patho gens.This test detects vadim th viable (live) and non-viable,SARS -CoV, and SARS-CoV-2. Fernando t performance dep ends on theamount of vi josephine (antigen) in th e sample.This feranndo t has not been FDA cleare d or approved; the t est hasbeen authori zed by FDA under an Em ergency Use Authorizati on(EUA) for use by labo ratories certified under the CLIA thatmeet the requirements to perform moderate, high or waivedcomplexit y tests. - XR CHEST 2 [id number] 13:06:00 [facility] : 1965 Sex: F FAX: Dennis Graves MD [phone] [place]: St: PRE FAX: Beverly Cartagena MD [phone] FAX: [facility] 1965 Age/S: 55/F [address] [place] [address] Unit #: [id number] Loc: FLAVIO Rueda [address] Phys: Katherine Ma NP Acct: [id number] Dis Date: Status: PRE SDC PHONE #: [phone] Exam Date: 06/08/2021 1143 FAX #: [phone] Reason: PREOP EXAMS: CPT CODE: [id number] XR CHEST 2 V 51823 Clinical Indication: Preoperative evaluation. Comparison: 03/08/2019. Impression: Chest, 2 views. No consolidation, pleural effusion, or pneumothorax. Cardiac silhouette is of normal size. No acute osseous abnormality. Thoracic spinal stimulating device is in place. SL: [id number] at 1306 Reported and signed by: Brian Mendes M.D. CC: Dennis Chaves MD; Beverly Cartagena MD; Katherine Ma NP Technologist: RT Milly(Tasia) Trnscrd Date/Time/By: 06/08/2021 (3945) : By: [email or web address] Orig Print D/T: S: 06/08/2021 (4944) PAGE 1 Signed ReportBASIC METABOLIC [id number] 11:59:00 Test Item Value Reference Range Interpretation Comments SODIUM (test code = NA) 133 mEq/L 134-147 L POTASSIUM (test code = 3.7 mEq/L 3.4-5.0 N K) CHLORIDE (test code = 103 mEq/L 100-108 N CL) CARBON DIOXIDE (test 25 mEq/l 21-33 N code = CO2) ANION GAP (test code = 9 0-20 N GAP) GLUCOSE (test code = 149 mg/dL 70-110 H GLU) BLOOD UREA NITROGEN 8 mg/dL 7-18 N (test code = BUN) GLOMERULAR FILTRATION 74.2 90-95 L Units of measure = RATE (test code = GFR) ml/mi n/1.73 m2 CREATININE (test code = 0.8 mg/dL 0.6-1.3 N CREAT) CALCIUM (test code = 8.9 mg/dL 8.0-10.5 N CA) CBC W/AUTO [id number] 11:55:00 Test Item Value Reference Range Interpretation Comments WHITE BLOOD CELL (test code = 11.4 x10 3/uL 4.5-11.0 H WBC) RED BLOOD CELL (test code = 4.00 x10 6/uL 3.54-5.02 N RBC) HEMOGLOBIN (test code = HGB) 9.4 g/dL 11.0-15.0 L HEMATOCRIT (test code = HCT) 30.5 % 33.0-45.0 L MEAN CELL VOLUME (test code = 76.3 fL 81.0-99.0 L MCV) MEAN CELL HGB (test code = MCH) 23.5 pg 27.0-33.0 L MEAN CELL HGB CONCETRATION 30.8 g/dL 33.0-37.0 L (test code = MCHC) RED CELL DISTRIBUTION WIDTH CV 18.8 % 11.5-14.5 H (test code = RDW) RED CELL DISTRIBUTION WIDTH SD 51.9 fL 37.0-54.0 N (test code = RDW-SD) PLATELET COUNT (test code = 442 x10 3/uL 150-400 H PLT) MEAN PLATELET VOLUME (test code 9.2 fL 7.0-9.0 H = MPV) NEUTROPHIL % (test code = NT%) 72.0 % 56.0-77.0 N IMMATURE GRANULOCYTE % (test 0.7 % 0.0-2.0 N code = IG%) LYMPHOCYTE % (test code = LY%) 17.8 % 14.0-32.0 N MONOCYTE % (test code = MO%) 7.9 % 4.8-9.0 N EOSINOPHIL % (test code = EO%) 0.9 % 0.3-3.7 N BASOPHIL % (test code = BA%) 0.7 % 0.0-2.0 N NUCLEATED RBC % (test code = 0.0 % 0-0 N NRBC%) NEUTROPHIL # (test code = NT#) 8.17 x10 3/uL 2.0-7.6 H IMMATURE GRANULOCYTE # (test 0.08 x10 3/uL 0.00-0.03 H code = IG#) LYMPHOCYTE # (test code = LY#) 2.02 x10 3/uL 1.0-3.8 N MONOCYTE # (test code = MO#) 0.90 x10 3/uL 0.1-0.8 H EOSINOPHIL # (test code = EO#) 0.10 x10 3/uL 0.0-0.2 N BASOPHIL # (test code = BA#) 0.08 x10 3/uL 0.0-0.2 N NUCLEATED RBC # (test code = 0.00 x10 3/uL 0.0-0.1 N NRBC#) MANUAL DIFF REQUIRED (test code NO = MDIFF) AFB CULTURE + [id number] 12:03:00 Test Item Value Reference Range Interpretation Comments CULTURE (BEAKER) (test No acid-fast bacilli code = 1095) isolated in 42 days AFB SMEAR (BEAKER) No acid fast bacilli (test code = 994) seen FUNGUS CULTURE + [id number] 18:46:00 Test Item Value Reference Range Interpretation Comments CULTURE (BEAKER) A 1+ Jo-Ann albicans (test code = 1095) FUNGUS SMEAR No fungi seen (BEAKER) (test code = 1406) MISCELLANEOUS LAB [id number] 07:43:00 Test Item Value Reference Range Interpretation Comments SCAN RESULT (test code = 9825339) CBC W/PLT COUNT & AUTO [id number] 11:31:00 Test Item Value Reference Range Interpretation [...] PERCENT (BEAKER) (test code = 2801) POCT-GLUCOSE [id number] 08:15:00 Test Item Value Reference Range Interpretation Comments POC-GLUCOSE METER 87 mg/dL 70-110 : TESTED A T [facility] 6720 (BEAKER) (test code = [place], 1538) 35412: Renewable Energy Consultant/Techni theo ID = [id number] for GINNY PULIDO [id number] 08:08:00 Test Item Value Reference Range Interpretation Comments MAGNESIUM (BEAKER) 1.6 mg/dL 1.6-2.6 Specimen slightly (test code = 627) hemolyzed COMPREHENSIVE METABOLIC [id number] 08:08:00 Test Item Value Reference Range Interpretation [...] NOT APPLICABLE FOR DIALYSIS PATIEN TS. POCT-GLUCOSE [id number] 23:32:00 Test Item Value Reference Range Interpretation Comments POC-GLUCOSE METER 98 mg/dL 70-110 : TESTED A T [facility] 6720 (BEAKER) (test code = LIV MUNIZ, 1538) 90892: Renewable Energy Consultant/Techni theo ID = [id number] for PATEL TEJADA POCT-GLUCOSE [id number] 17:52:00 Test Item Value Reference Range Interpretation Comments POC-GLUCOSE METER 88 mg/dL 70-110 : TESTED A T [facility] 6720 (BEAKER) (test code = LIV Dozier [facility], 1538) 05959: Renewable Energy Consultant/Techni theo ID = [id number] for DOBB INS, ZAK POCT-GLUCOSE [id number] 11:53:00 Test Item Value Reference Range Interpretation Comments POC-GLUCOSE METER 161 mg/dL 70-110 H : TESTED A T [facility] 6720 (BEAKER) (test code = LIV Dozier [facility], 1538) 96315: Renewable Energy Consultant/Techni theo ID = [id number] for DO BBINS, ZAK BRONCHIAL CULTURE + GRAM [id number] 10:38:00 Test Item Value Reference Range Interpretation Comments CULTURE (BEAKER) (test See comment code = 1095) GRAM STAIN RESULT 2+ White blood cells (BEAKER) (test code = seen 1123) GRAM STAIN RESULT No organisms seen (BEAKER) (test code = 722410) 1+ YeastRAD, CHEST, 1 VIEW, NON [id number] 08:59:00Reason for exam:- >endotracheal intubationShould this be [...] Impression:No significant interval change. Signed: Jerrell Silva MDReport Verified Date/Time: 10/14/2019 08:59:12 Reading Location: [address] Transitional Reading Room [id number] 08:38:00 Test Item Value Reference Range Interpretation Comments MAGNESIUM (BEAKER) 2.0 mg/dL 1.6-2.6 Specimen slightly (test code = 627) hemolyzed COMPREHENSIVE METABOLIC [id number] 08:38:00 Test Item Value Reference Range Interpretation [...] PATIEN TS. CBC W/PLT COUNT & AUTO [id number] 08:23:00 Test Item Value Reference Range Interpretation [...] PERCENT (BEAKER) (test code = 2801) POCT-GLUCOSE [id number] 07:07:00 Test Item Value Reference Range Interpretation Comments POC-GLUCOSE METER 84 mg/dL 70-110 : TESTED A T [facility] 6720 (BEAKER) (test code = [place], 1538) 36994: Renewable Energy Consultant/Techni theo ID = [id number] for Will iams, Kamille BLOOD GAS, [id number] 04:38:00 Test Item Value Reference Range Interpretation [...] (test code = 1819) 36.0 % POCT-GLUCOSE [id number] 01:19:00 Test Item Value Reference Range Interpretation Comments POC-GLUCOSE METER 152 mg/dL 70-110 H : TESTED A T [facility] 6720 (BEAKER) (test code = [facility], 153) 32235: Renewable Energy Consultant/Techni theo ID = [id number] for Kamille Garcia BLOOD [id number] 19:01:00 Test Item Value Reference Range Interpretation Comments CULTURE (BEAKER) (test No growth in 5 days code = 1095) POCT-GLUCOSE [id number] 18:11:00 Test Item Value Reference Range Interpretation Comments POC-GLUCOSE METER 82 mg/dL 70-110 : TESTED A T [facility] 6720 (BEAKER) (test code = [facility] [employer] [facility], 153) 02670: Renewable Energy Consultant/Techni theo ID = [id number] for DOBB INS, ZAK POCT-GLUCOSE [id number] 12:34:00 Test Item Value Reference Range Interpretation Comments POC-GLUCOSE METER 87 mg/dL 70-110 : TESTED A T [facility] 6720 (BEAKER) (test code = [facility] [employer] [facility], 153) 56528: Renewable Energy Consultant/Techni theo ID = [id number] for SAND ERS, GIDEON CBC W/PLT COUNT & AUTO [id number] 09:13:00 Test Item Value Reference Range Interpretation [...] 0-1 PERCENT (BEAKER) (test code = 2801) [id number] 06:55:00 Test Item Value Reference Range Interpretation Comments MAGNESIUM (BEAKER) (test code = 1.8 mg/dL 1.6-2.6 627) COMPREHENSIVE METABOLIC [id number] 06:55:00 Test Item Value Reference Range Interpretation [...] APPLICABLE FOR DIALYSIS PATIEN TS. BLOOD GAS, [id number] 06:41:00 Test Item Value Reference Range Interpretation [...] 28.0 % RAD, CHEST, 1 VIEW, NON [id number] 04:40:00Reason for exam:->endotracheal intubationShould this be performed [...] changes of the left clavicle.. Signed: [facility] Verified Date/Time: 10/13/2019 04:40:52 POCT-GLUCOSE METER 2019-10-13 00:24:00 Test Item Value Reference Range Interpretation Comments POC-GLUCOSE METER 107 mg/dL 70-110 : TESTED A T [facility] 6720 (BEAKER) (test code = [place], 1538) [id number]: Renewable Energy Consultant/Techni theo ID = [id number] for Dianna Wetzel RAD, MANDIBLE, MIN 4 [id number] 17:22:00Reason for exam:->Liver Transplant EvaluationShould this be performed at the bedside?->YesFINAL REPORT Technique: Six views of the mandible dated 10/12/2019. HISTORY: Liver transplant evaluation. COMPARISON: None IMPRESSION: No lytic or sclerotic lesion. No displaced fracture. The temporomandibular joints are not well-visualized likely secondary to difficulty with patient positioning. No radiodense foreign body or subcutaneous emphysema. Signed: Smiley Villarrealeport Verified Date/Time: 10/12/2019 17:22:01 Reading Location: [facility] Mammo Reading Room POCT-GLUCOSE [id number] 12:42:00 Test Item Value Reference Range Interpretation Comments POC-GLUCOSE METER 119 mg/dL 70-110 H : TESTED A T [facility] 6720 (BEAKER) (test code = L[facility] [place], 1538) [id number]: Renewable Energy Consultant/Techni theo ID = [id number] for Tyler Sanchez RAD, CHEST, 1 VIEW, NON [id number] 09:14:00Reason for exam:->endotracheal intubationShould this be performed [...] MDReport Verified Date/Time: 10/12/2019 09:14:48 Reading Location: [facility] Radiology Reading Room MAGNESIUM 2019-10-12 04:39:00 Test Item Value Reference Range Interpretation Comments MAGNESIUM (BEAKER) (test code = 1.8 mg/dL 1.6-2.6 627) COMPREHENSIVE METABOLIC [id number] 04:39:00 Test Item Value Reference Range Interpretation [...] PATIEN TS. CBC W/PLT COUNT & AUTO [id number] 04:18:00 Test Item Value Reference Range Interpretation [...] (BEAKER) (test code = 2801) BLOOD GAS, [id number] 04:17:00 Test Item Value Reference Range Interpretation [...] (test code = 1819) 30.0 % SPIN/CONCENTRATION [id number] 01:15:00 Test Item Value Reference Range Interpretation Comments CONCENTRATION CHARGED (BEAKER) (test Done code = 2657) BODY FLUID CELL COUNT WITH [id number] 18:00:00 Test Item Value Reference Range Interpretation [...] (test code = 2873) EEG AWAKE AND [id number] 17:00:00Reason for exam:->acute encephalopathyShould this be performed at the bedside?->YesDate(s) of EE10/11/2019 DATE OF REPORT: 10/11/2019ACC: [id number] Number: [id number] Location: Inpatient ICUStart time: 10/11/2019 16:09Stop time: 10/11/2019 16:31ICD-10: R41.82 CPT Code: 55261 HISTORY: 54 y.o. female with hypertension, chronic [...] of this report.Jermaine Walton MD, PhDAttending NeurophysiologistCHI [place], [place] SPUTUM CULTURE + GRAM [id number] 15:43:00 Test Item Value Reference Range Interpretation Comments CULTURE (BEAKER) 4+ Normal respiratory (test code = 1095) candy present GRAM STAIN RESULT 2+ White blood cells (BEAKER) (test code = seen 1123) GRAM STAIN RESULT 0-5 epithelial cells (BEAKER) (test code = 21942) GRAM STAIN RESULT 1+ gram positive rods (BEAKER) (test code = 77849) GRAM STAIN RESULT <1+ yeast (BEAKER) (test code = 325493) MISCELLANEOUS LAB [id number] 08:34:00 Test Item Value Reference Range Interpretation Comments SCAN RESULT (test code = 0363946) RAD, CHEST, 1 VIEW, NON [id number] 07:51:00Reason for exam:->endotracheal intubationShould this be performed [...] MDReport Verified Date/Time: 10/11/2019 07:51:10 Reading Location: [facility] Radiology Reading Room BLOOD [id number] 07:00:00 Test Item Value Reference Range Interpretation Comments CULTURE (BEAKER) (test No growth in 5 days code = 1095) BLOOD [id number] 07:00:00 Test Item Value Reference Range Interpretation Comments CULTURE (BEAKER) (test No growth in 5 days code = 1095) POCT-GLUCOSE [id number] 05:51:00 Test Item Value Reference Range Interpretation Comments POC-GLUCOSE METER 103 mg/dL 70-110 : TESTED A T [facility] 6720 (BEAKER) (test code = [place] [facility], 1538) 139[address]: Renewable Energy Consultant/Techni theo ID = [id number] for SHARI BAJWA BLOOD GAS, [id number] 04:55:00 Test Item Value Reference Range Interpretation [...] (BEAKER) (test code = 1819) 40.0 % [id number] 04:46:00 Test Item Value Reference Range Interpretation Comments MAGNESIUM (BEAKER) (test code = 2.2 mg/dL 1.6-2.6 627) COMPREHENSIVE METABOLIC [id number] 04:46:00 Test Item Value Reference Range Interpretation [...] PATIEN TS. CBC W/PLT COUNT & AUTO [id number] 04:11:00 Test Item Value Reference Range Interpretation [...] PERCENT (BEAKER) (test code = 2801) POCT-GLUCOSE [id number] 23:55:00 Test Item Value Reference Range Interpretation Comments POC-GLUCOSE METER 118 mg/dL 70-110 H : TESTED A T [facility] 6720 (BEAKER) (test code = [place], 1538) [id number]: Renewable Energy Consultant/Techni theo ID = [id number] for SHARI BAJWA POCT-GLUCOSE [id number] 17:40:00 Test Item Value Reference Range Interpretation Comments POC-GLUCOSE METER 142 mg/dL 70-110 H : TESTED A T [facility] 6720 (JASON) (test code = [facility] [employer] [facility], 1538) [id number]: Renewable Energy Consultant/Techni theo ID = [id number] for Karely Bautista POCT-GLUCOSE [id number] 12:30:00 Test Item Value Reference Range Interpretation Comments POC-GLUCOSE METER 114 mg/dL 70-110 H : TESTED A T [facility] 6720 (BEDIAN) (test code = [facility] [employer] [facility], 1538) [id number]: Renewable Energy Consultant/Techni theo ID = [id number] for Karely Bautista HIV-1 PCR, [id number] 11:07:00 Test Item Value Reference Range Interpretation Comments HIV-1 RESULT HIV RNA not detected HIV RNA not detected COMPONENT (JASON) (test code = 2703) This test uses a Real-Time Polymerase Chain Reaction (RT-PCR) methodology to detect a highly conserved region of the HIV-1 gag gene and was performed using the CHRISTINA AmpliPrep/CHRISTINA TaqMan HIV-1 test kit version 2.0 ([employer]Reportable range for this assay is 20 - 10,000,000 copies per mL (1.3 - 7.0 Log copies/mL).[id number] 08:14:00 Test Item Value Reference Range Interpretation Comments T3 TOTAL (JASON) (test code = 656) 36 ng/dL 48-159 L RAD, CHEST, 1 VIEW, NON [id number] 07:15:00Reason for exam:->endotracheal intubationShould this be performed [...] MDReport Verified Date/Time: 10/10/2019 07:15:28 Reading Location: [facility] Radiology Reading Room POCT- GLUCOSE [id number] 06:26:00 Test Item Value Reference Range Interpretation Comments POC-GLUCOSE METER 103 mg/dL 70-110 : TESTED A T [facility] 6720 (BEAKER) (test code = [place], 1538) [address]: Renewable Energy Consultant/Techni theo ID = [id number] for SUSIE TRUONG [id number] 05:32:00 Test Item Value Reference Range Interpretation [...] within 95-100% range.CBC W/PLT COUNT & AUTO [id number] 05:23:00 Test Item Value Reference Range Interpretation [...] 0-1 PERCENT (BEAKER) (test code = 2801) [id number] 05:10:00 Test Item Value Reference Range Interpretation [...] INR is2.5-3.5 for patients wiht mechanical heart valves.[id number] 05:10:00 Test Item Value Reference Range Interpretation Comments PHOSPHORUS (BEAKER) (test code = 3.3 mg/dL 2.3-4.7 604) [id number] 05:10:00 Test Item Value Reference Range Interpretation Comments MAGNESIUM (BEAKER) (test code = 2.3 mg/dL 1.6-2.6 627) COMPREHENSIVE METABOLIC [id number] 05:10:00 Test Item Value Reference Range Interpretation [...] S NOT APPLICABLE FOR DIALYSIS PATIEN TS. [id number] 05:08:00 Test Item Value Reference Range Interpretation Comments FIBRINOGEN LEVEL (BEAKER) (test 275 mg/dl 225-434 code = 658) PROTHROMBIN TIME/[id number] 05:07:00 Test Item Value Reference Range Interpretation [...] is2.5-3.5 for patients wiht mechanical heart valves.CALCIUM, [id number] 04:59:00 Test Item Value Reference Range Interpretation Comments CALCIUM IONIZED (BEAKER) (test 1.20 mmol/L 1.12-1.27 code = 698) PH, BLOOD (BEAKER) (test code = 7.37 1810) BLOOD GAS, [id number] 04:55:00 Test Item Value Reference Range Interpretation [...] (test code = 1819) 40.0 % POCT-GLUCOSE [id number] 00:46:00 Test Item Value Reference Range Interpretation Comments POC-GLUCOSE METER 90 mg/dL 70-110 : TESTED A T [facility] 6720 (BEAKER) (test code = [place], 1538) 73[address]: Renewable Energy Consultant/Techni theo ID = [id number] for MATH EW, SUSIE MRSA [id number] 19:33:00 Test Item Value Reference Range Interpretation Comments CULTURE (BEAKER) (test code No MRSA isolated = 1095) PROTHROMBIN TIME/[id number] 18:00:00 Test Item Value Reference Range Interpretation [...] INR is2.5-3.5 for patients wiht mechanical heart valves.PT/[id number] 18:00:00 Test Item Value Reference Range Interpretation [...] INR is2.5-3.5 for patients wiht mechanical heart valves.[id number] 17:55:00 Test Item Value Reference Range Interpretation Comments MAGNESIUM (BEAKER) (test code = 1.9 mg/dL 1.6-2.6 627) BASIC METABOLIC [id number] 17:55:00 Test Item Value Reference Range Interpretation [...] APPLICABLE FOR DIALYSIS PATIEN TS. CYTOMEGALOVIRUS ANTIBODY, [id number] 16:41:00 Test Item Value Reference Range Interpretation Comments CYTOMEGALOVIRUS, IGG (BEAKER) Negative Negative, Equivocal (test code = 3429) CMV IgG Result Interpretation: </= 0.8 Al Negative 0.9-1.0 Al Equivocal >/=1.1 Al PositiveCYTOMEGALOVIRUS ANTIBODY, [id number] 16:41:00 Test Item Value Reference Range Interpretation Comments CYTOMEGALOVIRUS IGM ANTIBODY Negative Negative, Equivocal (BEAKER) (test code = 3437) CMV IgM Result Interpretation: </= 0.8 Al Negative 0.9-1.0 Al Equivocal >/= 1.1 Al PositiveEBV ANTIBODY, [id number] 16:41:00 Test Item Value Reference Range Interpretation Comments JAMA ROUSE VIRAL CAPSID Positive Negative, Equivocal A ANTIGEN IGG (BEAKER) (test code = 3415) Jama Rouse Viral Capsid Antigen IgG Result Interpretation: </= 0.8 Al Negative 0.9-1.0 Al Equivocal >/= 1.1 Al PositiveEBV ANTIBODY, IGM 2019-10-09 16:41:00 Test Item Value Reference Range Interpretation Comments JAMA ROUSE VIRAL CAPSID Positive Negative, Equivocal A ANTIGEN IGM (BEAKER) (test code = 3418) Jama Rouse Viral Capsid Antigen IgM Result Interpretation: </= 0.8 Al Negative 0.9-1.0 Al Equivocal >/= 1.1 Al PositivePOCT-GLUCOSE METER 2019-10-09 16:15:00 Test Item Value Reference Range Interpretation Comments POC-GLUCOSE METER 107 mg/dL 70-110 : TESTED A T [facility] 6720 (BEAKER) (test code = [place], 1538) [address]: Renewable Energy Consultant/Techni theo ID = [id number] for Karely Bautista CT, BRAIN, WITHOUT [id number] 14:07:00Patient with decerebrate posturing, r/o herniationFINAL REPORT [...] recommended for further characterization. Signed: Shari Perry MDReport Verified Date/Time: 10/09/2019 14:07:57 SPUTUM CULTURE + GRAM [id number] 12:59:00 Test Item Value Reference Range Interpretation Comments CULTURE (BEAKER) See comment (test code = 1095) GRAM STAIN RESULT 1+ White blood cells (BEAKER) (test code = seen 1123) GRAM STAIN RESULT 0-5 epithelial cells (BEAKER) (test code = 595577) GRAM STAIN RESULT No organisms seen (BEAKER) (test code = 673742) 2+ YeastNo Normal respiratory candy presentPOCT-GLUCOSE [id number] 12:22:00 Test Item Value Reference Range Interpretation Comments POC-GLUCOSE METER 168 mg/dL 70-110 H : TESTED A T [facility] 6720 (BEAKER) (test code = [place], 1538) 69[address]: Renewable Energy Consultant/Techni theo ID = [id number] for Karely Bautista POCT-GLUCOSE [id number] 10:04:00 Test Item Value Reference Range Interpretation Comments POC-GLUCOSE METER 101 mg/dL 70-110 : TESTED A T [facility] 6720 (BEAKER) (test code = [facility] [place] [facility], 1538) 33301: Renewable Energy Consultant/Techni theo ID = [id number] for Karely Bautista BILIRUBIN, [id number] 09:44:00 Test Item Value Reference Range Interpretation Comments BILIRUBIN DIRECT (BEAKER) (test 1.5 mg/dL 0.1-0.5 H code = 706) [id number] 07:19:00 Test Item Value Reference Range Interpretation Comments PROCALCITONIN (BEAKER) (test code 1.48 ng/mL <0.05 H = 3036) SEPSIS RISK (ng/mL)Low: 0.05-0.50Intermediate: 0.51-2.00High: >=2.35L-[id number] 05:26:00 Test Item Value Reference Range Interpretation [...] within 95-100% range.RAD, CHEST, 1 VIEW, NON [id number] 05:16:00Reason for exam:->endotracheal intubationShould this be performed [...] Cummins MDReport Verified Date/Time: 10/09/2019 05:16:08 CALCIUM, [id number] 05:05:00 Test Item Value Reference Range Interpretation Comments CALCIUM IONIZED (BEAKER) (test 1.14 mmol/L 1.12-1.27 code = 698) PH, BLOOD (BEAKER) (test code = 7.49 1810) BLOOD GAS, [id number] 05:04:00 Test Item Value Reference Range Interpretation [...] 40.0 % CBC W/PLT COUNT & AUTO [id number] 04:51:00 Test Item Value Reference Range Interpretation [...] (BEAKER) (test code = 2801) VANCOMYCIN LEVEL, [id number] 04:26:00 Test Item Value Reference Range Interpretation Comments VANCOMYCIN TROUGH (BEAKER) (test 7.0 ug/mL 10.0-20.0 L code = 522) [id number] 04:21:00 Test Item Value Reference Range Interpretation Comments PHOSPHORUS (BEAKER) (test code = 3.2 mg/dL 2.3-4.7 604) [id number] 04:21:00 Test Item Value Reference Range Interpretation Comments MAGNESIUM (BEAKER) (test code = 1.9 mg/dL 1.6-2.6 627) COMPREHENSIVE METABOLIC [id number] 04:21:00 Test Item Value Reference Range Interpretation [...] S NOT APPLICABLE FOR DIALYSIS PATIEN TS. [id number] 04:19:00 Test Item Value Reference Range Interpretation Comments FIBRINOGEN LEVEL (BEAKER) (test 267 mg/dl 225-434 code = 658) PT/[id number] 04:14:00 Test Item Value Reference Range Interpretation [...] is2.5-3.5 for patients wiht mechanical heart valves.PROTHROMBIN TIME/[id number] 04:13:00 Test Item Value Reference Range Interpretation [...] is2.5-3.5 for patients wiht mechanical heart valves.POCT-GLUCOSE [id number] 01:04:00 Test Item Value Reference Range Interpretation Comments POC-GLUCOSE METER 143 mg/dL 70-110 H : TESTED A T [facility] 6720 (BEAKER) (test code = [employer] [facility], 1538) 96006: Renewable Energy Consultant/Techni theo ID = [id number] for BONY BRISCOE, SUSIE POCT-GLUCOSE [id number] 20:20:00 Test Item Value Reference Range Interpretation Comments POC-GLUCOSE METER 145 mg/dL 70-110 H : TESTED A T [facility] 6720 (BEAKER) (test code = [facility] [employer] [facility], 1538) 78803: Renewable Energy Consultant/Techni theo ID = [id number] for BONY DASW, SUSIE POCT-GLUCOSE [id number] 16:43:00 Test Item Value Reference Range Interpretation Comments POC-GLUCOSE METER 164 mg/dL 70-110 H : TESTED [place] [facility] 6720 (SHANNONAKER) (test code = [place], 1538) 788[address]: Renewable Energy Consultant/Techni theo ID = [id number] for Karely Bautista CMV PCR, [id number] 15:47:00 Test Item Value Reference Range Interpretation [...] and its performance characteristics determined by the [facility] Path ology Department, Section of Molecular Pathology. It has not been cleared or approved by the U.S. Food and Drug Administration (FDA), since FDA approval is not required for clinical use of the test. Validation was done as required by The Clinical Laboratory Improvement Amendments of 1988.[id number] 15:29:00 Test Item Value Reference Range Interpretation Comments PHOSPHORUS (BEAKER) (test code = 3.5 mg/dL 2.3-4.7 604) [id number] 15:29:00 Test Item Value Reference Range Interpretation Comments MAGNESIUM (BEAKER) (test code = 2.1 mg/dL 1.6-2.6 627) [id number] 15:01:00 Test Item Value Reference Range Interpretation Comments PHOSPHORUS (BEAKER) (test code = 2.1 mg/dL 2.3-4.7 L 604) [id number] 15:01:00 Test Item Value Reference Range Interpretation Comments MAGNESIUM (BEAKER) (test code = 2.0 mg/dL 1.6-2.6 627) BASIC METABOLIC [id number] 15:01:00 Test Item Value Reference Range Interpretation [...] APPLICABLE FOR DIALYSIS PATIEN TS. Specimen slightly ictericPT/[id number] 14:53:00 Test Item Value Reference Range Interpretation [...] INR is2.5-3.5 for patients wiht mechanical heart valves.[id number] 14:38:00 Test Item Value Reference Range Interpretation Comments AMMONIA (BEAKER) (test code = 348) 34 mol/L 18-72 RUBELLA ANTIBODY, [id number] 14:20:00 Test Item Value Reference Range Interpretation Comments RUBELLA IGG QUANTITATION (BEAKER) 1.0 IU/mL <8.0 (test code = 572) Rubella IgG Result Interpretation: </= 7.0 IU/mL Negative - Presumed non- immune 8.0 - 9.9 IU/mL Equivocal >= 10.0 IU/mL Positive - Presumed immune VARICELLA ZOSTER ANTIBODY, [id number] 13:49:00 Test Item Value Reference Range Interpretation Comments VARICELLA ZOSTER IGG (AL) (BEAKER) 4.8 (test code = 3197) VARICELLA ZOSTER RESULT INTERPRETATIONS: <=0.8 Al Nonreactive: Presumed non-immune to VZV 0.9-1.0 Al Equivocal >=1.1 Al Reactive: Presumed immune to VZVCRYPTOCOCCAL [id number] 13:33:00 Test Item Value Reference Range Interpretation Comments CRYPTOCOCCAL ANTIGEN, SERUM Negative Negative, Interference (BEAKER) (test code = 1828) FACTOR 5 ACTIVITY (BLEEDING RISK)2019-10-08 13:03:00 Test Item Value Reference Range Interpretation Comments FACTOR V ACTIVITY (BEAKER) (test code = 9.0 % 60.0-150.0 L 665) CBC W/PLT COUNT & AUTO [id number] 12:13:00 Test Item Value Reference Range Interpretation [...] PERCENT (BEAKER) (test code = 2801) POCT-GLUCOSE [id number] 11:22:00 Test Item Value Reference Range Interpretation Comments POC-GLUCOSE METER 184 mg/dL 70-110 H : TESTED [place] [facility] 6720 (BEAKER) (test code = [place], 1538) 725[address]: Renewable Energy Consultant/Techni theo ID = [id number] for Karely Bautista ANTI-NUCLEAR ANTIBODY (JOSE ARMANDO)2019-10-08 10:44:00 Test Item Value Reference Range Interpretation Comments ANTI-NUCLEAR ANTIBODY (JOSE ARMANDO) (BEAKER) Negative Negative (test code = 418) Test performed by IFA method.Test performed by IFA method.[id number] 09:26:00 Test Item Value Reference Range Interpretation Comments PHOSPHORUS (BEAKER) (test code = 2.9 mg/dL 2.3-4.7 604) [id number] 09:26:00 Test Item Value Reference Range Interpretation Comments MAGNESIUM (BEAKER) (test code = 2.0 mg/dL 1.6-2.6 627) BASIC METABOLIC [id number] 09:26:00 Test Item Value Reference Range Interpretation [...] Specimen slightly ictericRAD, CHEST, 1 VIEW, NON [id number] 09:14:00Reason for exam:->endotracheal intubationShould this be performed at the bedside?->YesFINAL REPORT RAD, CHEST, 1 VIEW, NON DEPT INDICATION: endotracheal intubationCOMPARISON: Prior day's exam FINDINGS: Portable frontal view of the chest. IMPRESSION: Support Lines: Stable. Lungs and pleura: Improved interstitial congestion. No consolidation or effusion. No pneumothorax.Heart and mediastinum: Stable contours. Additional findings: None. Signed: JR Gramajo Robert [facility] Verified Date/Time: 10/08/2019 09:14:39 Reading Location: [facility] Radiology Reading Room D-DIMER 2019-10-08 06:25:00 Test [...] of thrombosis is within 95-100% range. PROTHROMBIN TIME/[id number] 05:32:00 Test Item Value Reference Range Interpretation [...] INR is2.5-3.5 for patients wiht mechanical heart valves.[id number] 05:32:00 Test Item Value Reference Range Interpretation Comments FIBRINOGEN LEVEL (BEAKER) (test 200 mg/dl 225-434 L code = 658) [id number] 05:32:00 Test Item Value Reference Range Interpretation [...] Specimen slightly ictericCBC W/PLT COUNT & AUTO [id number] 05:24:00 Test Item Value Reference Range Interpretation [...] (BEAKER) (test code = 2801) LACTIC ACID, [id number] 05:16:00 Test Item Value Reference Range Interpretation Comments LACTATE BLOOD VENOUS (2) (BEAKER) 1.8 mmol/L 0.5-2.2 (test code = 2872) [id number] 23:51:00 Test Item Value Reference Range Interpretation Comments PHOSPHORUS (BEAKER) (test code = 4.4 mg/dL 2.3-4.7 604) [id number] 23:51:00 Test Item Value Reference Range Interpretation Comments MAGNESIUM (BEAKER) (test code = 2.2 mg/dL 1.6-2.6 627) BASIC METABOLIC [id number] 23:51:00 Test Item Value Reference Range Interpretation [...] DIALYSIS PATIEN TS. Specimen slightly ictericBLOOD GAS, [id number] 23:37:00 Test Item Value Reference Range Interpretation [...] 50.0 % CBC W/PLT COUNT & AUTO [id number] 20:12:00 Test Item Value Reference Range Interpretation [...] PERCENT (BEAKER) (test code = 2801) POCT-GLUCOSE [id number] 20:01:00 Test Item Value Reference Range Interpretation Comments POC-GLUCOSE METER 143 mg/dL 70-110 H : TESTED A T [facility] 6720 (BEAKER) (test code = [facility], 1538) 46969: Renewable Energy Consultant/Techni theo ID = [id number] for Liban Arnett BLOOD GAS, [id number] 19:54:00 Test Item Value Reference Range Interpretation [...] (test code = 1819) 24.0 % POCT-GLUCOSE [id number] 19:01:00 Test Item Value Reference Range Interpretation Comments POC-GLUCOSE METER 155 mg/dL 70-110 H : TESTED A T [facility] 6720 (BEAKER) (test code = [facility], 1538) 07486: Renewable Energy Consultant/Techni theo ID = [id number] for GIDEON NUNEZ HEPATOBILIARY [id number] 18:38:00Please do at bedside. Thank you.FINAL REPORT PROCEDURE: HEPATOBILIARY SCAN CPT CODE: 09717 INDICATION: abdominal pain PROTOCOL: 5.3 mCi of [...] IMPRESSION: Normal hepatobiliary scan. Signed: Jeffery Alarcon Verified Date/Time: 10/07/2019 18:38:40 Electronicallysigned by: JEFFERY ALARCON MD on 10/07/2019 06:38 PMPOCT-GLUCOSE [id number] 16:52:00 Test Item Value Reference Range Interpretation Comments POC-GLUCOSE METER 166 mg/dL 70-110 H : TESTED A T [facility] 6720 (BEAKER) (test code = [place], 1538) [address]: Renewable Energy Consultant/Techni theo ID = [id number] for GIDEON NUNEZ PT/[id number] 16:40:00 Test Item Value Reference Range Interpretation [...] INR is2.5-3.5 for patients wiht mechanical heart valves.[id number] 16:40:00 Test Item Value Reference Range Interpretation Comments FIBRINOGEN LEVEL (BEAKER) (test 156 mg/dl 225-434 L code = 658) PROTHROMBIN TIME/[id number] 16:39:00 Test Item Value Reference Range Interpretation [...] INR is2.5-3.5 for patients wiht mechanical heart valves.[id number] 16:36:00 Test Item Value Reference Range Interpretation Comments PHOSPHORUS (BEAKER) (test code = 1.8 mg/dL 2.3-4.7 L 604) [id number] 16:36:00 Test Item Value Reference Range Interpretation Comments MAGNESIUM (BEAKER) (test code = 2.5 mg/dL 1.6-2.6 627) BASIC METABOLIC [id number] 16:36:00 Test Item Value Reference Range Interpretation [...] APPLICABLE FOR DIALYSIS PATIEN TS. BLOOD GAS, [id number] 16:22:00 Test Item Value Reference Range Interpretation [...] 25.0 % CBC W/PLT COUNT & AUTO [id number] 12:44:00 Test Item Value Reference Range Interpretation [...] PERCENT (BEAKER) (test code = 2801) POCT-GLUCOSE [id number] 12:23:00 Test Item Value Reference Range Interpretation Comments POC-GLUCOSE METER 145 mg/dL 70-110 H : TESTED A T [facility] 6720 (BEAKER) (test code = [place], 1538) 279[address]: Renewable Energy Consultant/Techni theo ID = [id number] for GIDEON NUNEZ [id number] 12:06:00 Test Item Value Reference Range Interpretation Comments T4 TOTAL (BEAKER) (test code = 895) 4.6 ug/dL 4.9-11.7 L [id number] 10:00:00 Test Item Value Reference Range Interpretation Comments PHOSPHORUS (BEAKER) (test code = 2.8 mg/dL 2.3-4.7 604) [id number] 10:00:00 Test Item Value Reference Range Interpretation Comments MAGNESIUM (BEAKER) (test code = 2.0 mg/dL 1.6-2.6 627) BASIC METABOLIC [id number] 10:00:00 Test Item Value Reference Range Interpretation [...] NOT APPLICABLE FOR DIALYSIS PATIEN TS. POCT-GLUCOSE [id number] 08:15:00 Test Item Value Reference Range Interpretation Comments POC-GLUCOSE METER 174 mg/dL 70-110 H : TESTED A T [facility] 6720 (BEAKER) (test code = [place], 1538) 48[address]: Renewable Energy Consultant/Techni theo ID = [id number] for SA NDERS, GIDEON RAD, CHEST, 1 VIEW, NON [id number] 05:39:00Reason for exam:- >intubatedShould this be performed [...] MDReport Verified Date/Time: 10/07/2019 05:39:22 BLOOD GAS, [id number] 05:29:00 Test Item Value Reference Range Interpretation [...] (BEAKER) (test code = 1819) 40.0 % [id number] 05:07:00 Test Item Value Reference Range Interpretation [...] thrombosis is within 95-100% range. COMPREHENSIVE METABOLIC [id number] 04:59:00 Test Item Value Reference Range Interpretation [...] PATIEN TS. CBC W/PLT COUNT & AUTO [id number] 04:32:00 Test Item Value Reference Range Interpretation [...] H PERCENT (BEAKER) (test code = 2801) [id number] 04:30:00 Test Item Value Reference Range Interpretation Comments PHOSPHORUS (BEAKER) (test code = 3.1 mg/dL 2.3-4.7 604) [id number] 04:30:00 Test Item Value Reference Range Interpretation Comments MAGNESIUM (BEAKER) (test code = 1.8 mg/dL 1.6-2.6 627) POCT-GLUCOSE [id number] 04:25:00 Test Item Value Reference Range Interpretation Comments POC-GLUCOSE METER 126 mg/dL 70-110 H : TESTED A T [facility] 6720 (BEAKER) (test code = [place], 1538) [id number]: Renewable Energy Consultant/Techni theo ID = [id number] for Liban Arnett [id number] 04:18:00 Test Item Value Reference Range Interpretation Comments FIBRINOGEN LEVEL (BEAKER) (test 173 mg/dl 225-434 L code = 658) [id number] 04:14:00 Test Item Value Reference Range Interpretation [...] for patients wiht mechanical heart valves.LACTIC ACID, [id number] 04:13:00 Test Item Value Reference Range Interpretation Comments LACTATE BLOOD VENOUS (2) (BEAKER) 1.2 mmol/L 0.5-2.2 (test code = 2872) POCT-GLUCOSE [id number] 01:33:00 Test Item Value Reference Range Interpretation Comments POC-GLUCOSE METER 103 mg/dL 70-110 : TESTED A T [facility] 6720 (BEAKER) (test code = [facility], 1538) [id number]: Renewable Energy Consultant/Techni theo ID = [id number] for GISELE CUETO HEMOGLOBIN AND [id number] 00:27:00 Test Item Value Reference Range Interpretation Comments HEMOGLOBIN (BEAKER) (test code = 8.6 GM/DL 11.2-15.7 L 410) HEMATOCRIT (BEAKER) (test code = 26.2 % 34.1-44.9 L 411) POCT-GLUCOSE [id number] 22:58:00 Test Item Value Reference Range Interpretation Comments POC-GLUCOSE METER 146 mg/dL 70-110 H : TESTED A T [facility] 6720 (BEAKER) (test code = [facility], 1538) [id number]: Renewable Energy Consultant/Techni theo ID = [id number] for GISELE CUETO RAD, CHEST, 1 VIEW, NON [id number] 21:37:00Reason for exam:->line placement, right IJShould this [...] Lungs and pleura: Unchanged airspace and pleural opaci ties. No pneumothorax.Heart and mediastinum: Stable contours. Additional findings: Stable surgical changes the left clavicle. Signed: Carolynn Rodríguez MDReport Verified Date/Time: 10/06/2019 21:37:58 BASI METABOLIC PANEL 2019-10-06 20:04:00 Test Item Value Reference Range Interpretation [...] APPLICABLE FOR DIALYSIS PATIEN TS. PROTEIN, RANDOM [id number] 19:50:00 Test Item Value Reference Range Interpretation Comments PROTEIN, URINE (BEAKER) (test code = 83 mg/dL 0-14 H 1569) CREATININE, RANDOM [id number] 19:28:00 Test Item Value Reference Range Interpretation Comments CREATININE URINE (BEAKER) (test 37.6 mg/dL code = 375) Reference Range: No [id number] 19:00:00 Test Item Value Reference Range Interpretation Comments MAGNESIUM (BEAKER) 2.0 mg/dL 1.6-2.6 Specimen slightly (test code = 627) hemolyzed [id number] 19:00:00 Test Item Value Reference Range Interpretation [...] 0-0 (test code = 413) LACTIC ACID, [id number] 18:55:00 Test Item Value Reference Range Interpretation Comments LACTATE BLOOD VENOUS 1.9 mmol/L 0.5-2.2 Specime n slightly (2) (BEAKER) (test hemolyzed code = 2872) VITAMIN B12 AND [id number] 18:36:00 Test Item Value Reference Range Interpretation Comments VITAMIN B12 (BEAKER) (test code = > pg/mL 213-816 H 774) FOLATE (BEAKER) (test code = 362) 17.3 ng/mL >=7.0 BLOOD GAS, [id number] 18:29:00 Test Item Value Reference Range Interpretation [...] code = 1819) 40.0 % BASIC METABOLIC [id number] 17:47:00 Test Item Value Reference Range Interpretation [...] NOT APPLICABLE FOR DIALYSIS PATIEN TS. POCT-GLUCOSE [id number] 17:39:00 Test Item Value Reference Range Interpretation Comments POC-GLUCOSE METER 188 mg/dL 70-110 H : TESTED A T [facility] 6720 (BEAKER) (test code = [facility] [place], 1538) [id number]: Renewable Energy Consultant/Techni theo ID = [id number] for SA NDERS, GIDEON LIPID [id number] 17:28:00 Test Item Value Reference Range Interpretation [...] Borderline 130-159 High 160-189 Very High >=190URIC [id number] 17:28:00 Test Item Value Reference Range Interpretation Comments URIC ACID (BEAKER) (test code = 7.3 mg/dL 2.6-7.2 H 773) HEMOGLOBIN [id number] 16:13:00 Test Item Value Reference Range Interpretation Comments HEMOGLOBIN A1C (BEAKER) (test code = 6.0 % 4.3-6.1 368) HEPATITIS A ANTIBODY, [id number] 16:13:00 Test Item Value Reference Range Interpretation Comments HEPATITIS A IGG ANTIBODY (BEAKER) Reactive Nonreactive A (test code = 2797) CARCINOEMBRYONIC ANTIGEN (CEA)2019-10-06 16:08:00 Test Item Value Reference Range Interpretation Comments CARCINOEMBRYONIC ANTIGEN (BEAKER) 23.1 ng/mL 0.0-5.0 H (test code = 685) VITAMIN D, [id number] 16:08:00 Test Item Value Reference Range Interpretation Comments VITAMIN D 25-OH (BEAKER) (test 10.1 ng/mL 6.6-49.9 code = 2764) Effective 09/07/2017: Reference Range ChangeNew: 6.6-49.9 ng/mL Previous: 13.0-47.8 ng/mLRecommended Vitamin D Target Range: 30.0-40.0 ng/mLTRANSFERRIN 2019-10-06 15:52:00 Test Item Value Reference Range Interpretation Comments TRANSFERRIN (BEAKER) (test code = 218 mg/dL 174-382 541) [id number] 15:09:00 Test Item Value Reference Range Interpretation Comments PHOSPHORUS (JASON) (test code = 1.7 mg/dL 2.3-4.7 L 604) U/S, ABDOMINAL, WITH [id number] 15:01:00Reason for exam:->acute liver injury, ? cholecystitis, [...] seen. No intrahepatic biliary dilatation. Signed: Amanda Van MDReport Verified Date/Time: 10/06/2019 15:01:21 Reading Location: [facility] [id number] Ortho Consult Reading Room PREGNANCY SCREEN, [id number] 14:58:00 Test Item Value Reference Range Interpretation Comments TEST URINE (BEAKER) (test Negative code = 583) POCT-GLUCOSE [id number] 12:44:00 Test Item Value Reference Range Interpretation Comments POC-GLUCOSE METER 156 mg/dL 70-110 H : TESTED A T [facility] 67[facility] (BEAKER) (test code = [facility] [place], 1538) [id number]: Renewable Energy Consultant/Techni theo ID = [id number] for GIDEON NUNEZ [id number] 12:39:00 Test Item Value Reference Range Interpretation Comments RPR SCREEN (BEAKER) (test code = Nonreactive Nonreactive 420) B-TYPE NATRIURETIC FACTOR (BNP)2019-10-06 11:57:00 Test Item Value Reference Range Interpretation Comments B-TYPE NATRIURETIC PEPTIDE 3996 pg/mL 0-100 H (BEAKER) (test code = 700) [id number] 11:51:00 Test Item Value Reference Range Interpretation Comments MAGNESIUM (BEAKER) (test code = 2.2 mg/dL 1.6-2.6 627) BLOOD GAS, [id number] 11:50:00 Test Item Value Reference Range Interpretation [...] code = 1819) 50.0 % RESPIRATORY PANEL [id number] 11:35:00 Test Item Value Reference Range Interpretation [...] [facility] using the [employer] FilmArray Respiratory Panel. It is FDA cleared and has been verified and approved by the [facility] Molecular Diagnostics Laboratory for clinical use on nasopharyngeal swab specimens.The performance of the FilmArrayRP has not been established in individuals who received influenza vaccine. Recent administration ofa nasal influenza vaccine may cause false positive results for Influenza A and/orInfluenza B.RETICULOCYTE [id number] 11:32:00 Test Item Value Reference Range Interpretation Comments RETICULOCYTE COUNT PCT ([facility]) (test 2.1 % 0.5-1.7 H code = 575) KETONE, [id number] 11:30:00 Test Item Value Reference Range Interpretation Comments KETONES, BLOOD (AKER) (test code 0.3 mmol/L <0.4 = 1103) LEGIONELLA ANTIGEN, [id number] 09:37:00 Test Item Value Reference Range Interpretation Comments L. PNEUMOPHILA Negative - see Negative fo r L. SEROGP 1 UR AG comment pneumophila (JASON) (test code serogrou p 1 antigen, = 1156) suggesting no r ecent or current infe ction with this serog roup. Legionellosis c annot be ruled out si nce other serogroup s and species may cau se disease. STREP PNEUMONIAE [id number] 09:37:00 Test Item Value Reference Range Interpretation Comments STREP PNEUMONIAE Presumptive negative Presumptive negative ANTIGEN ([place]) for pneumococcal for pneumococcal (test code = 1615) pneumonia - see pneumonia - see comment commen Presumptive negative for pneumococcal pneumonia, suggesting no current or recent pneumococcal infection. Infection due to S. pneumoniae cannot be ruled out since the antigen present in the sample may be below the detection limit of the test.POCT-GLUCOSE [id number] 08:45:00 Test Item Value Reference Range Interpretation Comments POC-GLUCOSE METER 119 mg/dL 70-110 H : TESTED A T [facility] 6720 (iMega) (test code = [facility], 1538) [id number]: Renewable Energy Consultant/Techni theo ID = [id number] for SA NDERS, GIDEON RAD, CHEST, 1 VIEW, NON [id number] 08:37:00Post-intubationReason for exam:- >intubationShould this be performed [...] made to exclude other etiologies.. Signed: Amanda Van MDReport Verified Date/Time: 10/06/2019 08:37:13 Reading Location: [place] 88330X Ortho Consult Reading Room [id number] 07:44:00 Test Item Value Reference Range Interpretation Comments PROCALCITONIN (BEAKER) (test code 0.97 ng/mL <0.05 H = 3036) SEPSIS RISK (ng/mL)Low: 0.05-0.50Intermediate: 0.51-2.00High: >=2.01URINALYSIS W/ REFLEX URINE [id number] 07:15:00 Test Item Value Reference Range Interpretation [...] code = 2795) ALPHA FETOPROTEIN (AFP), TUMOR [id number] 06:49:00 Test Item Value Reference Range Interpretation Comments ALPHA-FETOPROTEIN (BEAKER) (test code < ng/mL <10.0 = 1094) For 1 occurencesHEPATITIS B SURFACE [id number] 06:49:00 Test Item Value Reference Range Interpretation Comments HEPATITIS B SURFACE ANTIBODY < mIU/mL <8.0 (BEAKER) (test code = 647) For 1 occurencesRAPID DRUG SCREEN, [id number] 06:33:00 Test Item Value Reference Range Interpretation [...] situations. Chain of custody not maintained. Some fxei-txo-oadjkml medications, as well as adulterants, may cause inaccurate results. Clinical correlation should be applied. A more comprehensivedrug screen or confirmation of a detected drug may be performed upon request.CREATININE, RANDOM URINE 2019-10-06 06:30:00 Test Item Value Reference Range Interpretation Comments CREATININE URINE (BEAKER) (test 38.0 mg/dL code = 375) Reference Range: No NormalsSODIUM, RANDOM [id number] 06:30:00 Test Item Value Reference Range Interpretation Comments SODIUM URINE (BEAKER) (test code = 51 meq/L 243) Reference Range: No NormalsHEPATITIS B CORE ANTIBODY, [id number] 06:27:00 Test Item Value Reference Range Interpretation Comments HEPATITIS B CORE TOTAL ANTIBODY Nonreactive Nonreactive (BEAKER) (test code = 497) For 1 [id number] 05:50:00 Test Item Value Reference Range Interpretation Comments FERRITIN (BEAKER) (test code = 1588 ng/mL 5-275 H 361) For 1 occurencesACETAMINOPHEN [id number] 05:30:00 Test Item Value Reference Range Interpretation Comments ACETAMINOPHEN LEVEL (BEAKER) (test < ug/mL 10.0-30.0 L code = 344) Therapeutic Range: 10.0-30.0 g/mLToxic Levels: >200.0 g/mLFor 1 gtfsbnpvuyILGUR-9-[id number] 05:20:00 Test Item Value Reference Range Interpretation Comments ALPHA-1 ANTITRYPSIN (BEAKER) 266.90 mg/dL 90.00-200.00 H (test code = 502) [id number] 05:17:00 Test Item Value Reference Range Interpretation Comments THYROID STIMULATING HORMONE 0.75 uIU/mL 0.35-4.94 (BEAKER) (test code = 772) HEPATITIS PANEL, [id number] 05:17:00 Test Item Value Reference Range Interpretation Comments HEPATITIS A IGM ANTIBODY (BEAKER) Nonreactive Nonreactive (test code = 498) HEPATITIS B CORE IGM ANTIBODY Nonreactive Nonreactive (BEAKER) (test code = 645) HEPATITIS C ANTIBODY (BEAKER) Nonreactive Nonreactive (test code = 367) HEPATITIS B SURFACE ANTIGEN (2) Nonreactive Nonreactive (BEAKER) (test code = 2585) HIV-1 ANTIGEN WITH HIV-1/2 [id number] 05:17:00 Test Item Value Reference Range Interpretation Comments HIV-1 ANTIGEN WITH HIV 1\T\2 Nonreactive Nonreactive ANTIBODY (2) (BEAKER) (test code = 2586) BASIC METABOLIC [id number] 05:09:00 Test Item Value Reference Range Interpretation [...] APPLICABLE FOR DIALYSIS PATIEN TS. HEPATIC FUNCTION [id number] 05:09:00 Test Item Value Reference Range Interpretation [...] code = > U/L 6-55 H 347) [id number] 05:07:00 Test Item Value Reference Range Interpretation Comments PHOSPHORUS (BEAKER) (test code = 3.6 mg/dL 2.3-4.7 604) [id number] 05:07:00 Test Item Value Reference Range Interpretation [...] H (test code = 364) LACTIC ACID, [id number] 04:58:00 Test Item Value Reference Range Interpretation Comments LACTATE BLOOD ARTERIAL (2) 1.5 mmol/L 0.5-2.2 (BEAKER) (test code = 2874) [id number] 04:56:00 Test Item Value Reference Range Interpretation Comments ETHANOL (BEAKER) (test code = 400) < mg/dL <=10 [id number] 04:54:00 Test Item Value Reference Range Interpretation [...] L (test code = 2590) BLOOD GAS, [id number] 04:53:00 Test Item Value Reference Range Interpretation [...] 30.0 % CBC W/PLT COUNT & AUTO [id number] 04:53:00 Test Item Value Reference Range Interpretation [...] PERCENT (BEAKER) (test code = 2801) CALCIUM, [id number] 04:51:00 Test Item Value Reference Range Interpretation Comments CALCIUM IONIZED (BEAKER) (test 1.12 mmol/L 1.12-1.27 code = 698) PH, BLOOD (BEAKER) (test code = 7.35 1810) PROTHROMBIN [id number] 04:43:00 Test Item Value Reference Range Interpretation [...] INR is2.5-3.5 for patients wiht mechanical heart valves.[id number] 04:43:00 Test Item Value Reference Range Interpretation Comments FIBRINOGEN LEVEL (BEAKER) (test 265 mg/dl 225-434 code = 658) [id number] 04:43:00 Test Item Value Reference Range Interpretation Comments PROTIME (BEAKER) (test code = 30.3 seconds 11.9-14.2 H 759) INR (BEAKER) (test code = 370) 3.1 <=5.9 PARTIAL THROMBOPLASTIN TIME 33.7 seconds 22.5-36.0 (BEAKER) (test code = 760) Effective 04/25/2019: PT Reference Range ChangeNew: 11.9-14.2 Previous: 11.7- 14.7RECOMMENDED COUMADIN/WARFARIN INR THERAPY RANGESSTANDARD DOSE: 2.0-3.0 Includes: PROPHYLAXIS for venous thrombosis, systemic embolization; TREATMENT for venous thrombosis and/or pulmonary embolus.HIGH RISK: Target INR is2.5-3.5 for patients wiht mechanical heart valves.ACUTE HEPATITIS [id number] 06:15:00 Test Item Value Reference Range Interpretation [...] a HCV Nucleic Acid Amplification t est (903013).Perfor med At: HD [facility] [id number], [place] [id number] kris Gould MD Ph:[phone] HIV 1 2 ANTIBODY [id number] 06:15:00 Test Item Value Reference Range Interpretation Comments AB HIV 1 2 (test code = NON REACTIVE SCREEN NONREACTIVE [id number]) AG HIV1 P24 (test code = NON REACTIVE P24 NONREACTIVE [id number]) - CT ABD PELVIS W/[id number] 12:57:00 Name: GINA MARIE [facility] : 1965 Age/S: 53 / F [address] [address] [place] Unit #: [id number] Loc: [place] [address] Phys: Bryan Orta MD Acct: [id number] Dis Date: Status: ADM IN PHONE #: [phone] Exam Date: 03/09/2019 1200 FAX #: Reason: abd pain EXAMS: CPT: [id number] CT ABD PELVIS W/CONT 01960 LOCATION: T18 EXAM: CT ABDOMEN AND PELVIS WITH CONTRAST INDICATION: abd pain, COMPARISON: None. TECHNIQUE: Multiple CT images of the abdomen and pelvis were o btained with reconstructions in the coronal sagittal planes. [...] 03/09/2019 (1300) CTDI: DLP: PAGE 1 Signed ReportBASIC METABOLIC [id number] 07:37:00 Test Item Value Reference Range Interpretation [...] = CA) 8.7 MG/DL 8.5-10.1 N T4 [id number] 07:37:00 Test Item Value Reference Range Interpretation Comments T4 FREE (test code = T4F) 0.70 NG/DL 0.89-1.76 L THYROID STIMULATING [id number] 07:37:00 Test Item Value Reference Range Interpretation Comments THYROID STIMULATING HORMONE 1.540 mcIU/ML 0.340-4.820 N (test code = TSH) ACUTE HEPATITIS [id number] 07:33:00 Test Item Value Reference Range Interpretation Comments AB HEPATITIS A IGM (test code = HAVMAB) AG HEPATITIS B SURFACE (test code = SCREEN NEGATIVE HBSAG) AB HEPATITIS B CORE IGM (test code = HBCMAB) AB HEPATITIS C (test code = HCVAB) RATIO <0.8 HIV 1 2 ANTIBODY [id number] 07:33:00 Test Item Value Reference Range Interpretation Comments AB HIV 1 2 (test code = NON REACTIVE SCREEN NONREACTIVE SIC56YZ) AG HIV1 P24 (test code = NON REACTIVE P24 NONREACTIVE [id number]) GLYCOSYLATED HEMOGLOBIN [id number] 07:26:00 Test Item Value Reference Range Interpretation Comments GLYCOSYLATED HEMOGLOBIN (HA1C) 5.8 % A1C 4.2-6.3 N (test code = GLYHGB) ESTIMATED AVERAGE GLUCOSE (test 120 MG/DLest code = EAG) CBC W/AUTO [id number] 07:21:00 Test Item Value Reference Range Interpretation [...] DIFF/SCN CRITERIA MDIFF) - CT HEAD/BRAIN W/O [id number] 19:39:00 Name: GINA MARIE [facility] : 1965 Age/S: 53 / F [address] [address] [place] Unit #: [id number] Loc: [place] [address] Phys: Maria Morel MD Acct: [id number] Dis Date: Status: ADM IN PHONE #: [phone] Exam Date: 03/08/2019 8740 FAX #: Reason: near syn cope EXAMS: CPT: [id number] CT HEAD/BRAIN W/O CONT 73049 CT head History: near syncope Comparison: None at this time Location: R16 Technique: Noncontrast CT scan of the head was performed. One or more of the following radiation dose reduction techniques was used: automated exposure control, adjustment of mA and/or KV according to patient size, and/or utilization of iterative reconstruction technique. Quality of Exam: Acceptable. The ventricles, sulci and cisterns are within normal limits in size [...] RT(R)(CT) CTDI: DLP: Trnscb Date/Time: 03/08/2019 (1938) CarolyneR.PMT Orig Print D/T: S: 03/08/2019 (1941) CTDI: DLP: PAGE 1 Signed ReportDRUGS OF ABUSE SCREEN [id number] 19:12:00 Test Item Value Reference Range Interpretation [...] NEGATIVE SCcutoff <300 NG/ML [place]) COMPREHENSIVE METABOLIC [id number] 17:26:00 Test Item Value Reference Range Interpretation [...] 45-117 N TOTAL (test code = ALKP) [id number] 17:26:00 Test Item Value Reference Range Interpretation Comments MAGNESIUM (test code = MAG) 1.9 MG/DL 1.8-2.4 N [id number] 17:26:00 Test Item Value Reference Range Interpretation Comments ALCOHOL (test code = ALC) < 3 MG/DL 0-10 N COMPREHENSIVE METABOLIC [id number] 17:21:00 Test Item Value Reference Range Interpretation [...] TOTAL (test Unit/L 45-117 code = ALKP) [id number] 17:21:00 Test Item Value Reference Range Interpretation Comments MAGNESIUM (test code = MAG) MG/DL 1.8-2.4 [id number] 17:21:00 Test Item Value Reference Range Interpretation Comments ALCOHOL (test code = ALC) MG/DL 0-10 CBC W/AUTO [id number] 17:08:00 Test Item Value Reference Range Interpretation [...] DIFF/SCN CRITERIA MDIFF) - XR CHEST 1 [id number] 16:33:00 Name: GINA MARIE [facility] : 1965 Age/S: 53 / F [address] [address] [place] Unit #: [id number] Loc: [place] [address] Phys: Maria Morel MD Acct: [id number] Dis Date: Status: PRE ER PHONE #: [phone] Exam Date: 03/08/2019 7449 FAX #: Reason: near syncope EXAMS: CPT: [id number] XR CHEST 1 V 23457 Fluoro Time: DAP (Gy m2): Air Kerma [...] MARIE : 1965 Age/S: 53 / F [address] [address] [place] Unit #: [id number] Loc: [place] [address] Phys: Maria Morel MD Acct: [id number] Dis Date: Status: PRE ER PHONE #: [phone] Exam Date: 03/08/2019 1625 FAX #: Reason: near syncope EXAMS: CPT: [id number] XR CHEST 1 V 27321 Fluoro Time: DAP (Gy m2): Air Kerma (mGy): <Continued>Technologist: Nanette Gordon RT(R)(CT) Trnscb Date/Time: 03/08/2019 (8283) EsthelaJP19 Orig Print D/T: S: 03/08/2019 (5976) PAGE 2 Signed Report
== END 2021-10-06 22:02 | disposition home or self-care (01) ==
LOC: ER 19:28
DX: S39.012A Strain of muscle, fascia and tendon of lower back, initial encounter (principal); X50.0XXA Overexertion from strenuous movement or load, initial encounter; Y93.89 Activity, other specified; Y92.89 Other specified places as the place of occurrence of the external cause; Z91.09 Other allergy status, other than to drugs and biological substances; E78.5 Hyperlipidemia, unspecified; I10 Essential (primary) hypertension; F17.210 Nicotine dependence, cigarettes, uncomplicated
CPT/HCPCS: 96372; 99283

== ENCOUNTER 2021-10-07 10:30 | Emergency (ER) | payer BC ==
[2021-10-07] MEDS ORDERED: MORPHINE 4 MG/ML SYR ONE (12:18)
[2021-10-07] MEDS ORDERED: NA CHLORIDE 0.9% 1,000 ML ONE (12:18)
[2021-10-07] MEDS ORDERED: ONDANSETRON 4 MG/2 ML VIAL ONE (12:18)
[2021-10-07 13:20] LABS: Absolute Lymphocytes (CBC) 3.1 K/uL (0.7-4.9); Basophils % 0.5 % (0-1.3); Hematocrit 34.1 % (36.0-45.0); Lymphocytes % 28.6 % (15.3-44.8); MPV 6.8 fL (7.6-11.3); RBC Red Blood Cell Count 4.87 M/uL (3.86-4.86)
[2021-10-07 13:29] LABS: Protime INR 0.98
[2021-10-07] MEDS ORDERED: ONDANSETRON 4 MG (ODT) TAB ONE (13:36)
[2021-10-07 13:40] LABS: ALT/SGPT 21 U/L (12-78); AST/SGOT 18 U/L (15-37); Albumin 3.8 g/dL (3.4-5.0); Alkaline Phosphatase 95 U/L (45-117); BUN Blood Urea Nitrogen 14 mg/dL (7-18); Bicarbonate 22 mmol/L (21-32); Bilirubin Direct 0.1 mg/dL (0-0.2); Bilirubin Total 0.3 mg/dL (0.2-1.0); CKMB Creatine Kinase MB 1.9 ng/mL (1.0-3.6); Creatine Phosphokinase 111 U/L (26-192); Glucose Level 84 mg/dL (74-106); Lipase 98 U/L (73-393); Magnesium 2.2 mg/dL (1.8-2.4); Protein, Total 7.8 g/dL (6.4-8.2); Sodium Level 134 mmol/L (136-145); Troponin (Emerg Dept Use Only) < 0.02 ng/mL (0.0-0.045)
--- NOTE | 2021-10-07 14:02 | RAD REPORT ---
EXAM DESCRIPTION: RAD - Scapula Left - 10/07/2021 1:45 pm CLINICAL HISTORY: PAIN COMPARISON: Shoulder Left 2 View dated 02/11/2019; Chest Single View dated 04/02/2021 FINDINGS: The bones are mildly demineralized. No acute fractures seen. The distal aspect of the left clavicle is not well visualized and likely related to ununited fracture.
--- NOTE | 2021-10-07 14:02 | RAD REPORT ---
EXAM DESCRIPTION: RAD - Humerus Left - 10/07/2021 1:46 pm CLINICAL HISTORY: PAIN COMPARISON: <Comparisons> FINDINGS: The bones are demineralized. No acute fracture or dislocation evident. Ununited left clavi tonia fracture.
--- NOTE | 2021-10-07 14:05 | RAD REPORT ---
EXAM DESCRIPTION: RAD - Wrist Left 3 View - 10/07/2021 1:46 pm CLINICAL HISTORY: PAIN Pain COMPARISON: Wrist Left 2 View dated 07/18/2018; Wrist Left 3 View dated 07/18/2018 FINDINGS: Mild diffuse osteopenia. Distal radius and ulnar hardware is in place without evidence of hardware loosening or infection. No acute fracture or dislocation.
--- NOTE | 2021-10-07 14:06 | RAD REPORT ---
EXAM DESCRIPTION: RAD - Elbow Left 3 View - 10/07/2021 1:46 pm CLINICAL HISTORY: PAIN COMPARISON: <Comparisons> FINDINGS: The bones are diffusely demineralized. No acute fracture or dislocation is seen.
--- NOTE | 2021-10-07 14:11 | RAD REPORT ---
EXAM DESCRIPTION: RAD - Clavicle Left - 10/07/2021 1:46 pm CLINICAL HISTORY: PAIN COMPARISON: <Comparisons> FINDINGS: The bones are diffusely osteopenic. The distal aspect of the left clavicle is not well vis ualized. Glenohumeral joint appears intact.
--- NOTE | 2021-10-07 14:31 | EDPHYS ---
Physician Documentation [facility] Name: Pratibha Jennings Age: 56 yrs Sex: Female : 1965 Arrival Date: 10/07/2021 Time: 10:31 Bed 23 Private MD: ED Physician Brianna Florentino HPI: 10/07 11:39 This 56 yrs old Female presents to ER via Wheelchair with complaints of ma2 Shoulder Pain. 11:39 The patient or guardian complains of pain. Onset: The symptoms/episode began/occurred ma2 suddenly, 1 hour(s) ago. Associated signs and symptoms: Pertinent negatives: dyspnea. Severity of symptoms: At their worst the symptoms were moderate, in the emergency department the symptoms are unchanged. The patient has experienced similar episodes in the past. Historical: - Allergies: 11:04 Iodine; topical; vg1 11:04 Latex, Natural Rubber; vg1 - Home Meds: 11:04 Ambien 5 mg Oral tab 1 tab once daily [Active]; amlodipine oral [Active]; atorvastatin vg1 Oral [Active]; Fluoxetine Oral [Active]; gabapentin 600 mg Oral tab 1 tab daily [Active]; Hydroxyzine Oral [Active]; lidocaine patch [Active]; oxycodone-acetaminophen 10-650 mg Oral tab 1 tab every 6 hours [Active]; morphine 15 mg Oral tab 1 tab every 4 hours [Active]; tizanidine 4 mg Oral cap 1 cap [Active]; Zofran Oral [Active]; - PMHx: 11:04 ADD/ADHD; Back pain; Chronic pain; Degenerative disc disease; Hyperlipidemia; vg1 Hypertension; - PSHx: 11:04 Disc removal; Left clavicle; Left knee replacement; Left wrist surgery; Right knee vg1 replacement; Spinal surgery; - Immunization history:: Adult Immunizations up to date, Client reports receiving the 2nd dose of the Covid vaccine. - Social history:: Smoking status: Patient reports the use of cigarette tobacco products, smokes one-half pack cigarettes per day. - Family history:: not pertinent. ROS: 11:46 Constitutional: Negative for fever, chills, and weight loss. ma2 11:46 All other systems are negative. Exam: 11:46 Constitutional: This is a well developed, well nourished patient who is awake, alert, ma2 and in no acute distress. Head/Face: Normocephalic, atraumatic. Eyes: Pupils equal round and reactive to light, extra-ocular motions intact. Lids and lashes normal. Conjunctiva and sclera are non-icteric and not injected. Cornea within normal limits. Periorbital areas with no swelling, redness, or edema. ENT: Nares patent. No nasal discharge, no septal abnormalities noted. Tympanic membranes are normal and external auditory canals are clear. Oropharynx with no redness, swelling, or masses, exudates, or evidence of obstruction, uvula midline. Mucous membranes moist. Neck: Trachea midline, no thyromegaly or masses palpated, and no cervical lymphadenopathy. Supple, full range of motion without nuchal rigidity, or vertebral point tenderness. No Meningismus. Chest/axilla: Normal chest wall appearance and motion. Nontender with no deformity. No lesions are appreciated. Cardiovascular: Regular rate and rhythm with a normal S1 and S2. No gallops, murmurs, or rubs. Normal PMI, no JVD. No pulse deficits. Respiratory: Lungs have equal breath sounds bilaterally, clear to auscultation and percussion. No rales, rhonchi or wheezes noted. No increased work of breathing, no retractions or nasal flaring. Abdomen/GI: Soft, non-tender, with normal bowel sounds. No distension or tympany. No guarding or rebound. No evidence of tenderness throughout. Back: No spinal tenderness. No costovertebral tenderness. Full range of motion. Skin: Patient has left clavicle tenderness, left shoulder tenderness and left humerus tenderness, skin is within normal limits no sign of contusion, cap refill is within normal limits no swelling, wrist and hand movement are within normal limits, sensation is intact. Otherwise warm, dry with normal turgor. Normal color with no rashes, no lesions, and no evidence of cellulitis. MS/ Extremity: Pulses equal, no cyanosis. Neurovascular intact. Full, normal range of motion. Neuro: Awake and alert, GCS 15, oriented to person, place, time, and situation. Cranial nerves II-XII grossly intact. Motor strength 5/5 in all extremities. Sensory grossly intact. Cerebellar exam normal. Normal gait. Vital Signs: 11:01 BP 174 / 108; Pulse 88; Resp 16; Temp 98.9; Pulse Ox 100% ; Weight 54.43 kg; Height 5 vg1 ft. 4 in. (162.56 cm); Pain 10/10; 12:32 BP 186 / 100; Pulse 77; Resp 15; Pulse Ox 100% on R/A; Pain 9/10; ld1 13:44 BP 187 / 122; Pulse 82; Resp 11; Pulse Ox 99% on R/A; ld1 14:51 BP 192 / 105; Pulse 85; Resp 11; Pulse Ox 99% on R/A; ld1 11:01 Body Mass Index 20.60 (54.43 kg, 162.56 cm) vg1 MDM: 11:15 Patient medically screened. ma2 11:46 Differential diagnosis: Anterior dislocation with fracture, Anterior dislocation ma2 without fracture, Posterior dislocation with fracture, Posterior dislocation without fracture, humeral head fracture. 14:30 Data reviewed: vital signs, nurses notes. Counseling: I had a detailed discussion with ma2 the patient and/or guardian regarding: the historical points, exam findings, and any diagnostic results supporting the discharge/admit diagnosis, the presence of at least one elevated blood pressure reading (>120/80) during this emergency department visit, the need for outpatient follow up. Response to treatment: the patient's symptoms have markedly improved after treatment. 10/07 11:36 Order name: Basic Metabolic Panel; Complete Time: 13:59 ma2 10/07 11:36 Order name: CBC with Diff; Complete Time: 13:59 ma2 10/07 11:36 Order name: CPK; Complete Time: 13:59 ma2 10/07 11:36 Order name: Ckmb; Complete Time: 13:59 ma2 10/07 11:36 Order name: Hepatic Function; Complete Time: 13:59 ma2 10/07 11:36 Order name: Lipase; Complete Time: 13:59 ma2 10/07 11:35 Order name: XRAY Scapula LEFT; Complete Time: 14:24 ma2 10/07 11:35 Order name: Clavicle Left XRAY; Complete Time: 14:24 ma2 10/07 11:35 Order name: Humerus Left XRAY; Complete Time: 14:24 ma2 10/07 11:35 Order name: Elbow Left 3 View XRAY; Complete Time: 14:24 ma2 10/07 11:36 Order name: Magnesium; Complete Time: 13:59 ma2 10/07 11:36 Order name: Protime (+inr); Complete Time: 13:59 ma2 10/07 11:36 Order name: Ptt, Activated; Complete Time: 13:59 ma2 10/07 11:36 Order name: Troponin (emerg Dept Use Only); Complete Time: 13:59 ma2 10/07 11:35 Order name: Wrist Left (3 View) XRAY; Complete Time: 14:24 ma2 10/07 11:36 Order name: EKG; Complete Time: 11:37 ma2 10/07 11:36 Order name: Cardiac monitoring; Complete Time: 12:34 ma2 10/07 11:36 Order name: EKG - Nurse/Tech; Complete Time: 12:34 ma2 10/07 11:36 Order name: Labs collected and sent; Complete Time: 13:44 ma2 10/07 11:36 Order name: NPO; Complete Time: 12:35 ma2 10/07 11:36 Order name: O2 Per Protocol; Complete Time: 12:35 ma2 10/07 11:36 Order name: O2 Sat Monitoring; Complete Time: 12:35 ma2 Administered Medications: 13:42 Not Given (Other Intervention Used): Zofran (Ondansetron) 4 mg IVP once; over 2 minutes ld1 13:43 Not Given (Other Intervention Used): morphine 4 mg IVP once; RASS on ADMIN: Combtv4, ld1 Very Agttd3, Agttd2, Rstlss1, AlertClm0, Drwsy-1, Lt Sdtn-2, Mod Sdtn-3, Dp Sdtn-4, UnArsble-5 13:43 Drug: morphine 4 mg Route: IM; Site: right deltoid; ld1 13:43 Follow up: Response: No adverse reaction ld1 13:43 Drug: Ondansetron 4 mg Route: PO; ld1 13:43 Follow up: Response: No adverse reaction ld1 14:51 Not Given (Physician Discretion): NS 0.9% 1000 ml IV at 1 bolus Per protocol; 1000 mL ss bolus 14:51 Drug: HYDROcodone-acetaminophen 5 mg-325 mg 2 tabs Route: PO; ld1 14:51 Follow up: Response: No adverse reaction ld1 Disposition Summary: 10/07/21 14:30 Discharge Ordered Location: Home ma2 Condition: Stable ma2 Diagnosis - Pain in left arm ma2 Followup: ma2 - With: Private Physician - When: Tomorrow - Reason: If symptoms return, Continuance of care Discharge Instructions: - Discharge Summary Sheet ma2 - Musculoskeletal Pain ma2 Forms: - Medication Reconciliation Form ma2 - Thank You Letter ma2 - Antibiotic Education ma2 - Prescription Opioid Use ma2 Signatures: Dispatcher [employer] EDMS Brianna Florentino MD MD ma2 Barb Escalante RN RN vg1 Layne White RN RN ld1 Gaby Samaniego RN ss Corrections: (The following items were deleted from the chart) 14:51 11:36 IV Saline Lock ordered. ma2 ss
--- NOTE | 2021-10-07 14:31 | ER ---
Nurse's Notes [facility] Name: Pratibha Jennings Age: 56 yrs Sex: Female : 1965 Arrival Date: 10/07/2021 Time: 10:31 Bed 23 Private MD: Diagnosis: Pain in left arm Presentation: 10/07 11:01 Chief complaint: Patient states: Pt was seen in ED last night for back pain. States vg1 thinks that Zanaflex makes her dizzy. This morning pt fell onto marble dresser, states hit Left side of body and Left cheek. States Left shoulder pain. Has had recent sx on Left clavicle. Coronavirus screen: Vaccine status: Patient reports receiving the 2nd dose of the covid vaccine. Client denies travel out of the [place] in the last 14 days. Ebola Screen: Patient negative for fever greater than or equal to 101.5 degrees Fahrenheit, and additional compatible Ebola Virus Disease symptoms. Initial Sepsis Screen: Does the patient meet any 2 criteria? No. Patient's initial sepsis screen is negative. Does the patient have a suspected source of infection? No. Patient's initial sepsis screen is negative. Risk Assessment: Do you want to hurt yourself or someone else? Patient reports no desire to harm self or others. Onset of symptoms was October 07, 2021. 11:01 Method Of Arrival: Wheelchair vg1 11:01 Acuity: NUSRAT 3 vg1 Triage Assessment: 11:04 General: Appears in no apparent distress. uncomfortable, Behavior is appropriate for vg1 age, anxious, crying. Pain: Complains of pain in Left shoulder. Historical: - Allergies: 11:04 Iodine; topical; vg1 11:04 Latex, Natural Rubber; vg1 - Home Meds: 11:04 Ambien 5 mg Oral tab 1 tab once daily [Active]; amlodipine oral [Active]; atorvastatin vg1 Oral [Active]; Fluoxetine Oral [Active]; gabapentin 600 mg Oral tab 1 tab daily [Active]; Hydroxyzine Oral [Active]; lidocaine patch [Active]; oxycodone-acetaminophen 10-650 mg Oral tab 1 tab every 6 hours [Active]; morphine 15 mg Oral tab 1 tab every 4 hours [Active]; tizanidine 4 mg Oral cap 1 cap [Active]; Zofran Oral [Active]; - PMHx: 11:04 ADD/ADHD; Back pain; Chronic pain; Degenerative disc disease; Hyperlipidemia; vg1 Hypertension; - PSHx: 11:04 Disc removal; Left clavicle; Left knee replacement; Left wrist surgery; Right knee vg1 replacement; Spinal surgery; - Immunization history:: Adult Immunizations up to date, Client reports receiving the 2nd dose of the Covid vaccine. - Social history:: Smoking status: Patient reports the use of cigarette tobacco products, smokes one-half pack cigarettes per day. - Family history:: not pertinent. Screenin:32 Abuse screen: Denies threats or abuse. Denies injuries from another. Nutritional ld1 screening: No deficits noted. Tuberculosis screening: No symptoms or risk factors identified. Fall Risk None identified. Assessment: 12:32 General: Appears in no apparent distress. uncomfortable, Behavior is calm, cooperative, ld1 appropriate for age. Pain: Complains of pain in left arm Pain does not radiate. Pain currently is 9 out of 10 on a pain scale. Quality of pain is described as throbbing, Pain began suddenly, Is continuous. Neuro: Level of Consciousness is awake, alert, obeys commands, Oriented to person, place, time, situation, Appropriate for age. Cardiovascular: Capillary refill < 3 seconds Patient's skin is warm and dry. Respiratory: Airway is patent Respiratory effort is even, unlabored, Respiratory pattern is regular, symmetrical. GI: Abdomen is flat, non-distended. : No signs and/or symptoms were reported regarding the genitourinary system. EENT: No signs and/or symptoms were reported regarding the EENT system. Derm: No signs and/or symptoms reported regarding the dermatologic system. Musculoskeletal: Range of motion: limited in left shoulder and left elbow Reports pain in left arm. 13:44 Reassessment: Patient and/or family updated on plan of care and expected duration. Pain ld1 level reassessed. Pt displaying signs of anxiety \T\ c/o pain in left shoulder. Notified ERP. See MAR for orders. 14:51 Reassessment: Patient appears in no apparent distress at this time. Patient and/or ld1 family updated on plan of care and expected duration. Pain level reassessed. Patient is alert, oriented x 3, equal unlabored respirations, skin warm/dry/pink. Vital Signs: 11:01 BP 174 / 108; Pulse 88; Resp 16; Temp 98.9; Pulse Ox 100% ; Weight 54.43 kg; Height 5 vg1 ft. 4 in. (162.56 cm); Pain 10/10; 12:32 BP 186 / 100; Pulse 77; Resp 15; Pulse Ox 100% on R/A; Pain 9/10; ld1 13:44 BP 187 / 122; Pulse 82; Resp 11; Pulse Ox 99% on R/A; ld1 14:51 BP 192 / 105; Pulse 85; Resp 11; Pulse Ox 99% on R/A; ld1 11:01 Body Mass Index 20.60 (54.43 kg, 162.56 cm) vg1 ED Course: 10:31 Patient arrived in ED. ds1 11:04 Triage completed. vg1 11:04 Arm band placed on. vg1 11:14 Brianna Florentino MD is Attending Physician. ma2 12:32 Patient has correct armband on for positive identification. Bed in low position. Call ld1 light in reach. Side rails up X2. cafeteria monitor on. Pulse ox on. NIBP on. Door closed. Noise minimized. Warm blanket given. 12:32 No provider procedures requiring assistance completed. Missed attempt(s): 20 gauge in ld1 right antecubital area. 22 gauge in right hand. 13:03 Layne White, RN is Primary Nurse. ld1 13:36 X-ray completed. Portable x-ray completed in exam room. md1 13:45 XRAY Scapula LEFT In Process Unspecified. EDMS 13:45 Clavicle Left XRAY In Process Unspecified. EDMS 13:46 Humerus Left XRAY In Process Unspecified. EDMS 13:46 Elbow Left 3 View XRAY In Process Unspecified. EDMS 13:46 Wrist Left (3 View) XRAY In Process Unspecified. EDMS 14:52 Patient did not have IV access during this emergency room visit. ld1 Administered Medications: 13:42 Not Given (Other Intervention Used): Zofran (Ondansetron) 4 mg IVP once; over 2 minutes ld1 13:43 Not Given (Other Intervention Used): morphine 4 mg IVP once; RASS on ADMIN: Combtv4, ld1 Very Agttd3, Agttd2, Rstlss1, AlertClm0, Drwsy-1, Lt Sdtn-2, Mod Sdtn-3, Dp Sdtn-4, UnArsble-5 13:43 Drug: morphine 4 mg Route: IM; Site: right deltoid; ld1 13:43 Follow up: Response: No adverse reaction ld1 13:43 Drug: Ondansetron 4 mg Route: PO; ld1 13:43 Follow up: Response: No adverse reaction ld1 14:51 Not Given (Physician Discretion): NS 0.9% 1000 ml IV at 1 bolus Per protocol; 1000 mL ss bolus 14:51 Drug: HYDROcodone-acetaminophen 5 mg-325 mg 2 tabs Route: PO; ld1 14:51 Follow up: Response: No adverse reaction ld1 Outcome: 14:30 Discharge ordered by . ma2 14:52 Discharged to home via wheelchair, with family. ld1 14:52 Condition: stable 14:52 Discharge instructions given to patient, family, Instructed on discharge instructions, follow up and referral plans. Demonstrated understanding of instructions, follow-up care. 14:52 Patient left the ED. ld1 Signatures: Dispatcher [employer] EDNC Tata Lim Mohammad, MD MD ma2 Citlali Rubin md1 Barb Escalante, RN RN 1 Layne White RN RN ld1 Gaby Samaniego RN ss
[2021-10-07] MEDS ORDERED: HYDROCODONE/APAP 5/325 MG TAB ONE (14:47)
[2021-10-07 15:42] VITALS: TEMP 98.9
[2021-10-07 15:44] VITALS: O2SAT 99
[2021-10-07 15:46] VITALS: BP 192/105
--- NOTE | 2021-10-09 20:44 | EKG ---
Test Date: 2021-10-07 Test Time: 12:13:22 Fire Management Officer: MONAE MEASUREMENT RESULTS: Intervals: Rate: 74 AK: 140 QRSD: 68 QT: 390 QTc: 432 [place]: P: 46 AK: 140 QRS: 60 T: 80 INTERPRETIVE STATEMENTS: Normal sinus rhythm Minimal voltage criteria for LVH, may be normal variant Borderline ECG Compared to ECG 10/07/2021 12:12:18 Left ventricular hypertrophy now present ST (T wave) deviation no longer present Electronically Signed On 10-09-21 20:35:53 ENVIRONMENTAL PROFESSIONAL by Edil Grace
--- NOTE | 2021-10-09 20:44 | EKG ---
Test Date: 2021-10-07 Test Time: 12:12:18 Certified Scrum Master: MONAE MEASUREMENT RESULTS: Intervals: Rate: 79 NM: 110 QRSD: 68 QT: 400 QTc: 458 [place]: P: 35 NM: 110 QRS: 55 T: 40 INTERPRETIVE STATEMENTS: Undetermined rhythm Nonspecific ST and T wave abnormality Abnormal ECG Compared to ECG 04/02/2021 05:03:35 ST (T wave) deviation now present Sinus bradycardia no longer present Left ventricular hypertrophy no longer present Prolonged QT interval no longer present Electronically Signed On 10-09-21 20:35:53 LASTING MACHINE OPERATOR BED by Edil Grace
--- OUTSIDE RECORDS SUMMARY | 2021-10-10 19:07 | XMS REPORT | Continuity of Care Document ---
:1965 Author Organization [facility] t Address [address] [place] [address] Care Team Providers Name Role Phone Mary Chaves Primary Care Physician Eulogio, A Attending Clinician Unavailable CEZAR DAS Attending Clinician Unavailable EULOGIO Attending Clinician Unavailable eCzar Das MD Attending Clinician Doctor Unassigned, Name Attending Clinician Unavailable Ling Patterson Attending Clinician Unavailable Monisha Attending Clinician Unavailable PRANAV RODRIGUEZ Attending Clinician Unavailable Mary Chaves Admitting Clinician Unavailable Ling Patterson Admitting Clinician Unavailable Monisha Admitting Clinician Unavailable PRANAV RODRIGUEZ Admitting Clinician Unavailable Payers Payer Name Policy Type Policy Number Effective Date [id number]:00 Problems Condition Condition Condition Status Onset Resolution Last Treating Co mments Source Name Details Category Date Date Treatment Clinician Date No known No known Disease Unive rs active active ity of problems problems [facility] Acute Problem Active 2021-04-11 Memor ia hepatic 01:17:26 l failure Acute [place] (disorder) hepatic failure (disorder) Active Problem 04/11/2021 [facility] 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:17:26 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 (disorder) Active Problem 04/11/2021 [facility] Carotid Problem Active 2021-04-11 Rao caity bruit 01:17:26 l (finding) Carotid Herm joão bruit (finding) Active Problem 04/11/2021 [facility] Cerebrovas Problem Active 2021-04-11 M emoria cular 01:17:26 l accident [place] (disorder) Cerebrovas cular accident (disorder) Active Problem [...] Rash Univers Allergy 08-14 ity of 00:00: [facility] IODINE DRUG Active Rash Univers INGREDI 08-14 ity of 00:00: [place] [facility] latex DA Active SV [facility] 7-12 Clear 00:00: [place] [facility] latex DA Active SV BLISTERS, [facility] RASH 12 Clear 00:00: [place] [facility] Povidone Propensi Active Rash Patient Unive rs -Iodine ty to 03-31 reports ity of adverse 00:00: blisterin [place] reaction 00 g and Medical s rashPatie Branch nt reports blisterin g and rashPatie nt reports blisterin g and rash POVIDONE DRUG Active Low Hives Univers -IODINE INGREDI 03-31 ity of 00:00: [facility] iodine DA Active [place] [facility] 07-04 Clear 00:00: [place] [facility] iodine DA Active [place] TOPICAL [facility] IODINE-RASH/ 07-04 Lanny r BLISTER 00:00: [place] 00 [facility] iodine iodine Active Memoria topical< topical< l sup>1</s sup>1</s Reece n up> up> NO KNOWN Drug Active Univers ALLERGIE Class ity of S [facility] Social History Social Habit Start Date Stop Date Quantity Comments Source History of tobacco Cigarette Smoker University of use [facility] Cigarettes smoked 2021-08-14 2021-08-14 Univers ity of current (pack per 00:00:00 00:00:00 [facility] ) - Reported Branch Tobacco use and 2021-08-14 2021-08-14 Never used Universit y of exposure 00:00:00 00:00:00 [facility] Alcohol intake 2021-08-14 2021-08-14 Current drinker Unive rsity of 00:00:00 00:00:00 of alcohol [place] [facility] (finding) [place] Social History 2019-07-18 2019-07-18 Yuliana brar 15:14:03 15:14:03 Sex [birth year] At [birth year] Universit y of 00:00:00 00:00:00 [facility] Smoking Status Start Date Stop Date Source Unknown if ever smoked Universit y of [facility] Current every day smoker 2021-08-14 00:00:00 Uni versity of [facility] Medications Ordered Filled Start Stop Current Ordering Indication Dosage Frequency Signature Comments Components Source Medication Medication Date Date Medication? Clinician (SIG) Name Name Dexlansopra Yes Dexilant Un malia zole 9-17 60 mg ity of (DEXILANT) 10:31: capsule, Luis as 60 mg 37 delayed Medical capsule release Branch Take 1 capsule every day by oral route for 56 days. gabapentin Yes gabapentin U nivers 600 mg 9-17 600 mg ity of tablet 10:31: tablet [place] [address] Take 1 Medical tablet 3 Branch times a day by oral route. tiZANidine Yes 4mg Take 4 mg Un malia 4 mg tablet 9-17 by mouth. ity of 10:31: [address] zolpidem Yes 5mg Take 5 mg Univ ers 12.5 mg CR 9-17 by mouth. ity of tablet 10:31: [address] ALPRAZolam Yes alprazolam U nivers 0.5 mg 9-17 0.5 mg ity of tablet 10:31: tablet [place] [address] Take 1 Medical tablet Branch every day by oral route for 10 days. Dexlansopra Yes Dexilant Un malia zole 9-17 60 mg ity of (DEXILANT) 10:31: capsule, Luis as 60 mg 37 delayed Medical capsule release Branch Take 1 capsule every day by oral route for 56 days. gabapentin Yes gabapentin U nivers 600 mg 9-17 600 mg ity of tablet 10:31: tablet [place] 37 Take 1 Medical tablet 3 Branch times a day by oral route. tiZANidine Yes 4mg Take 4 mg Un malia 4 mg tablet 9-17 by mouth. ity of 10:31: [address] Branch zolpidem 2020-0 Yes 5mg Take 5 mg Univ ers 12.5 mg CR 9-17 by mouth. ity of tablet 10:31: [address] ALPRAZolam 0 Yes alprazolam U nivers 0.5 mg 9-17 0.5 mg ity of tablet 10:31: tablet [place] [address] Take 1 Medical tablet Branch every day by oral route for 10 days. Dexlansopra 0 Yes Dexilant Un malia zole 9-17 60 mg ity of (DEXILANT) 10:31: capsule, Luis as 60 mg 37 delayed Medical capsule release Branch Take 1 capsule every day by oral route for 56 days. gabapentin 0 Yes gabapentin U nivers 600 mg 9-17 600 mg ity of tablet 10:31: tablet [place] [address] Take 1 Medical tablet 3 Branch times a day by oral route. tiZANidine 0 Yes 4mg Take 4 mg Un malia 4 mg tablet 9-17 by mouth. ity of 10:31: [address] zolpidem 0 Yes 5mg Take 5 mg Univ ers 12.5 mg CR 9-17 by mouth. ity of tablet 10:31: [address] ALPRAZolam Yes alprazolam U nivers 0.5 mg 9-17 0.5 mg ity of tablet 10:31: tablet [place] [address] Take 1 Medical tablet Branch every day by oral route for 10 days. Dexlansopra 0 Yes Dexilant Un malia zole 9-17 60 mg ity of (DEXILANT) 10:31: capsule, Luis as 60 mg 37 delayed Medical capsule release Branch Take 1 capsule every day by oral route for 56 days. gabapentin 2020-0 Yes gabapentin U nivers 600 mg 9-17 600 mg ity of tablet 10:31: tablet [place] [address] Take 1 Medical tablet 3 Branch times a day by oral route. tiZANidine 2020-0 Yes 4mg Take 4 mg Un malia 4 mg tablet 9-17 by mouth. ity of 10:31: [address] zolpidem 2020-0 Yes 5mg Take 5 mg Univ ers 12.5 mg CR 9-17 by mouth. ity of tablet 10:31: [place] [address] Medical Branch ALPRAZolam Yes alprazolam U nivers 0.5 mg 9-17 0.5 mg ity of tablet 10:31: tablet 37 Take 1 Medical tablet Branch every [...] tablet 9-17 by mouth. ity of 10:31: Medical Branch zolpidem Yes 5mg Take 5 mg Univ ers 12.5 mg CR 9-17 by mouth. ity of tablet 10:31: Medical Branch ALPRAZolam Yes alprazolam U nivers 0.5 mg 9-17 0.5 mg ity of tablet 10:31: tablet Take 1 Medical tablet Branch every day by oral route for 10 days. atorvastati Yes 10mg Take 10 mg Univers n 10 mg 7-25 by mouth ity of tablet 00:00: every [place] 00 evening. Medical Branch atorvastati Yes 10mg Take 10 mg Univers n 10 mg 7-25 by mouth ity of tablet 00:00: every [place] 00 evening. Medical Branch atorvastati Yes 10mg Take 10 mg Univers n 10 mg 7-25 by mouth ity of tablet 00:00: every [place] 00 evening. Medical Branch atorvastati Yes 10mg Take 10 mg Univers n 10 mg 7-25 by mouth ity of tablet 00:00: every [place] 00 evening. Medical Branch atorvastati Yes 10mg Take 10 mg Univers n 10 mg 7-25 by mouth ity of tablet 00:00: every [place] 00 evening. Medical Branch atorvastati Yes 20 mg = 2 M emoria n 10 mg 1-25 tab, PO, l oral tablet 21:02: Daily, # He rmann 00 60 tab, 1 Refill(s), Pharmacy: [facility] #[id number], 162.56, cm, 12/22/20 14:47:00 [employer], Height, 66.818, kg, 12/22/20 14:47:00 [employer], Weight atorvastati 2020-0 Yes 20 mg = 2 M emoria n 10 mg 1-25 tab, PO, l oral tablet 21:02: Daily, # He rmann 00 60 tab, 1 Refill(s), Pharmacy: [facility] #[id number], 162.56, cm, 12/22/20 14:47:00 [employer], Height, 66.818, kg, 12/22/20 14:47:00 [employer], Weight atorvastati 2020-0 Yes 20 mg = 2 M emoria n 10 mg 1-25 tab, PO, l oral tablet 21:02: Daily, # Brendon rmann 00 60 tab, 1 Refill(s), Pharmacy: [facility] #[id number], 162.56, cm, 12/22/20 14:47:00 [employer], Height, 66.818, kg, 12/22/20 14:47:00 [employer], Weight atorvastati 2020-0 Yes 20 mg = 2 M emoria n 10 mg 1-25 tab, PO, l oral tablet 21:02: Daily, # He rmann 00 60 tab, 1 Refill(s), [id number], 162.56, cm, 12/22/20 14:47:00 [employer], Height, 66.818, kg, 12/22/20 14:47:00 [employer], Weight atorvastati 2020-0 Yes 20 mg = 2 M emoria n 10 mg 1-25 tab, PO, l oral tablet 21:02: Daily, # He rmann 00 60 tab, 1 Refill(s), Pharmacy: [facility] #[id number], 162.56, cm, 12/22/20 14:47:00 [employer], Height, 66.818, kg, 12/22/20 14:47:00 [employer], Weight atorvastati 2021-0 Yes 20 mg = 2 M emoria n 10 mg 1-25 tab, PO, l oral tablet 21:02: Daily, # He rmann 00 60 tab, 1 Refill(s), Pharmacy: [facility] #[id number], 162.56, cm, 12/22/20 14:47:00 [employer], Height, 66.818, kg, 12/22/20 14:47:00 [employer], Weight atorvastati Yes 20 mg = 2 M emoria n 10 mg 1-25 tab, PO, l oral tablet 21:02: Daily, # He rmann 00 60 tab, 1 Refill(s), Pharmacy: [facility] #[id number], 162.56, cm, 12/22/20 14:47:00 [employer], Height, 66.818, kg, 12/22/20 14:47:00 [employer], Weight atorvastati Yes 20 mg = 2 M emoria n 10 mg 1-25 tab, PO, l oral tablet 21:02: Daily, # He rmann 00 60 tab, 1 Refill(s), [facility] #[id number], 162.56, cm, 12/22/20 14:47:00 [employer], Height, 66.818, kg, 12/22/20 14:47:00 [employer], Weight atorvastati Yes 20 mg = 2 M emoria n 10 mg 1-25 tab, PO, l oral tablet 21:02: Daily, # He rmann 00 60 tab, 1 Refill(s), Pharmacy: [facility] #[id number], 162.56, cm, 12/22/20 14:47:00 [employer], Height, 66.818, kg, 12/22/20 14:47:00 [employer], Weight atorvastati Yes 20 mg = 2 M emoria n 10 mg 1-25 tab, PO, l oral tablet 21:02: Daily, # He rmann 00 60 tab, 1 Refill(s), [id number], 162.56, cm, 12/22/20 14:47:00 [employer], Height, 66.818, kg, 12/22/20 14:47:00 [employer], Weight atorvastati 2020-0 Yes 20 mg = 2 M emoria n 10 mg 1-25 tab, PO, l oral tablet 21:02: Daily, # He rmann 00 60 tab, 1 Refill(s), Pharmacy: [facility] #[id number], 162.56, cm, 12/22/20 14:47:00 [employer], Height, 66.818, kg, 12/22/20 14:47:00 [employer], Weight atorvastati 2020-0 Yes 20 mg = 2 M emoria n 10 mg 1-25 tab, PO, l oral tablet 21:02: Daily, # He rmann 00 60 tab, 1 Refill(s), Pharmacy: [facility] #[id number], 162.56, cm, 12/22/20 14:47:00 [employer], Height, 66.818, kg, 12/22/20 14:47:00 [employer], Weight atorvastati 2020-0 Yes 20 mg = 2 M emoria n 10 mg 1-25 tab, PO, l oral tablet 21:02: Daily, # He rmann 00 60 tab, 1 Refill(s), Pharmacy: [facility] #[id number], 162.56, cm, 12/22/20 14:47:00 [employer], Height, 66.818, kg, 12/22/20 14:47:00 [employer], Weight atorvastati 2020-0 Yes 20 mg = 2 M emoria n 10 mg 1-25 tab, PO, l oral tablet 21:02: Daily, # He rmann 00 60 tab, 1 Refill(s), Pharmacy: [facility] #[id number], 162.56, cm, 12/22/20 14:47:00 [employer], Height, 66.818, kg, 12/22/20 14:47:00 [employer], Weight atorvastati 2020-0 Yes 20 mg = 2 M emoria n 10 mg 1-25 tab, PO, l oral tablet 21:02: Daily, # He rmann 00 60 tab, 1 Refill(s), Pharmacy: [facility] #[id number], 162.56, cm, 12/22/20 14:47:00 [employer], Height, 66.818, kg, 12/22/20 14:47:00 [employer], Weight atorvastati 2020-0 Yes 20 mg = 2 M emoria n 10 mg 1-25 tab, PO, l oral tablet 21:02: Daily, # He rmann 00 60 tab, 1 Refill(s), [id number], 162.56, cm, 12/22/20 14:47:00 [employer], Height, 66.818, kg, 12/22/20 14:47:00 [employer], Weight atorvastati 2020-0 Yes 20 mg = 2 M emoria n 10 mg 1-25 tab, PO, l oral tablet 21:02: Daily, # He rmann 00 60 tab, 1 Refill(s), [facility][id number], 162.56, cm, 12/22/20 14:47:00 [employer], Height, 66.818, kg, 12/22/20 14:47:00 [employer], Weight atorvastati 2020-0 Yes 20 mg = 2 M emoria n 10 mg 1-25 tab, PO, l oral tablet 21:02: Daily, # He rmann 00 60 tab, 1 Refill(s), [facility][id number], 162.56, cm, 12/22/20 14:47:00 [employer], Height, 66.818, kg, 12/22/20 14:47:00 [employer], Weight atorvastati 2020-0 Yes 20 mg = 2 M emoria n 10 mg 1-25 tab, PO, l oral tablet 21:02: Daily, # He rmann 00 60 tab, 1 Refill(s), [facility][id number], 162.56, cm, 12/22/20 14:47:00 [employer], Height, 66.818, kg, 12/22/20 14:47:00 [employer], Weight atorvastati 2020-0 Yes 20 mg = 2 M emoria n 10 mg 1-25 tab, PO, l oral tablet 21:02: Daily, # He rmann 00 60 tab, 1 Refill(s), [facility][id number], 162.56, cm, 12/22/20 14:47:00 [employer], Height, 66.818, kg, 12/22/20 14:47:00 [employer], Weight topiramate 2020-0 Yes 50 mg = 1 Me moria 50 mg oral 9-03 tab, PO, l tablet 18:52: BID, # 60 Reece n 00 tab, 3 Refill(s), Pharmacy: [facility] #[id number], 162.56, cm, 07/31/20 13:42:00 CDT, Height, 56.818, kg, 07/31/20 13:42:00 CDT, Weight topiramate 2020-0 Yes 50 mg = 1 Me moria 50 mg oral 9-03 tab, PO, l tablet 18:52: BID, # 60 Reece n 00 tab, 3 Refill(s), Pharmacy: [facility] #[id number], 162.56, cm, 07/31/20 13:42:00 CDT, Height, 56.818, kg, 07/31/20 13:42:00 CDT, Weight topiramate 2020-0 Yes 50 mg = 1 Me moria 50 mg oral 9-03 tab, PO, l tablet 18:52: BID, # 60 Reece n 00 tab, 3 Refill(s), Pharmacy: [facility] #[id number], 162.56, cm, 07/31/20 13:42:00 CDT, Height, 56.818, kg, 07/31/20 13:42:00 CDT, Weight topiramate 2020-0 Yes 50 mg = 1 Me moria 50 mg oral 9-03 tab, PO, l tablet 18:52: BID, # 60 Reece n 00 tab, 3 Refill(s), Pharmacy: [facility] #[id number], 162.56, cm, 07/31/20 13:42:00 CDT, Height, 56.818, kg, 07/31/20 13:42:00 CDT, Weight topiramate 2020-0 Yes 50 mg = 1 Me moria 50 mg oral 9-03 tab, PO, l tablet 18:52: BID, # 60 Reece n 00 tab, 3 Refill(s), Pharmacy: [facility] #[id number], 162.56, cm, 07/31/20 13:42:00 CDT, Height, 56.818, kg, 07/31/20 13:42:00 CDT, Weight topiramate 2020-0 Yes 50 mg = 1 Me moria 50 mg oral 9-03 tab, PO, l tablet 18:52: BID, # 60 Reece n 00 tab, 3 Refill(s), Pharmacy: [facility] #[id number], 162.56, cm, 07/31/20 13:42:00 CDT, Height, 56.818, kg, 07/31/20 13:42:00 CDT, Weight topiramate 2020-0 Yes 50 mg = 1 Me moria 50 mg oral 9-03 tab, PO, l tablet 18:52: BID, # 60 Reece n 00 tab, 3 Refill(s), Pharmacy: [facility] #[id number], 162.56, cm, 07/31/20 13:42:00 CDT, Height, 56.818, kg, 07/31/20 13:42:00 CDT, Weight topiramate 2020-0 Yes 50 mg = 1 Me moria 50 mg oral 9-03 tab, PO, l tablet 18:52: BID, # 60 Reece n 00 tab, 3 Refill(s), Pharmacy: [facility] #[id number], 162.56, cm, 07/31/20 13:42:00 CDT, Height, 56.818, kg, 07/31/20 13:42:00 CDT, Weight topiramate 2020-0 Yes 50 mg = 1 Me moria 50 mg oral 9-03 tab, PO, l tablet 18:52: BID, # 60 Reece n 00 tab, 3 Refill(s), Pharmacy: [facility] #[id number], 162.56, cm, 07/31/20 13:42:00 CDT, Height, 56.818, kg, 07/31/20 13:42:00 CDT, Weight topiramate 2020-0 Yes 50 mg = 1 Me moria 50 mg oral 9-03 tab, PO, l tablet 18:52: BID, # 60 Reece n 00 tab, 3 Refill(s), Pharmacy: [facility] #[id number], 162.56, cm, 07/31/20 13:42:00 CDT, Height, 56.818, kg, 07/31/20 13:42:00 CDT, Weight topiramate 2020-0 Yes 50 mg = 1 Me moria 50 mg oral 9-03 tab, PO, l tablet 18:52: BID, # 60 Reece n 00 tab, 3 Refill(s), Pharmacy: [facility] #[id number], 162.56, cm, 07/31/20 13:42:00 CDT, Height, 56.818, kg, 07/31/20 13:42:00 CDT, Weight topiramate 2020-0 Yes 50 mg = 1 Me moria 50 mg oral 9-03 tab, PO, l tablet 18:52: BID, # 60 Reece n 00 tab, 3 Refill(s), Pharmacy: [facility] #[id number], 162.56, cm, 07/31/20 13:42:00 CDT, Height, 56.818, kg, 07/31/20 13:42:00 CDT, Weight topiramate 2020-0 Yes 50 mg = 1 Me moria 50 mg oral 9-03 tab, PO, l tablet 18:52: BID, # 60 Reece n 00 tab, 3 Refill(s), Pharmacy: [facility] #[id number], 162.56, cm, 07/31/20 13:42:00 CDT, Height, 56.818, kg, 07/31/20 13:42:00 CDT, Weight topiramate 2020-0 Yes 50 mg = 1 Me moria 50 mg oral 9-03 tab, PO, l tablet 18:52: BID, # 60 Reece n 00 tab, 3 Refill(s), Pharmacy: [facility] #[id number], 162.56, cm, 07/31/20 13:42:00 CDT, Height, 56.818, kg, 07/31/20 13:42:00 CDT, Weight topiramate 2020-0 Yes 50 mg = 1 Me moria 50 mg oral 9-03 tab, PO, l tablet 18:52: BID, # 60 Reece n 00 tab, 3 Refill(s), Pharmacy: [facility] #[id number], 162.56, cm, 07/31/20 13:42:00 CDT, Height, 56.818, kg, 07/31/20 13:42:00 CDT, Weight topiramate 2020-0 Yes 50 mg = 1 Me moria 50 mg oral 9-03 tab, PO, l tablet 18:52: BID, # 60 Reece n 00 tab, 3 Refill(s), Pharmacy: [facility] #[id number], 162.56, cm, 07/31/20 13:42:00 CDT, Height, 56.818, kg, 07/31/20 13:42:00 CDT, Weight topiramate 2020-0 Yes 50 mg = 1 Me moria 50 mg oral 9-03 tab, PO, l tablet 18:52: BID, # 60 Reece n 00 tab, 3 Refill(s), Pharmacy: [facility] #[id number], 162.56, cm, 07/31/20 13:42:00 CDT, Height, 56.818, kg, 07/31/20 13:42:00 CDT, Weight topiramate 2020-0 Yes 50 mg = 1 Me moria 50 mg oral 9-03 tab, PO, l tablet 18:52: BID, # 60 Reece n 00 tab, 3 Refill(s), Pharmacy: [facility] #[id number], 162.56, cm, 07/31/20 13:42:00 CDT, Height, 56.818, kg, 07/31/20 13:42:00 CDT, Weight topiramate 2020-0 Yes 50 mg = 1 Me moria 50 mg oral 9-03 tab, PO, l tablet 18:52: BID, # 60 Reece n 00 tab, 3 Refill(s), Pharmacy: [facility] #[id number], 162.56, cm, 07/31/20 13:42:00 CDT, Height, 56.818, kg, 07/31/20 13:42:00 CDT, Weight topiramate 2020-0 Yes 50 mg = 1 Me moria 50 mg oral 9-03 tab, PO, l tablet 18:52: BID, # 60 Reece n 00 tab, 3 Refill(s), Pharmacy: [facility] #[id number], 162.56, cm, 07/31/20 13:42:00 CDT, Height, 56.818, kg, 07/31/20 13:42:00 CDT, Weight topiramate 2020-0 Yes 25 mg = 1 Me moria 25 MG Oral 4-15 tab, PO, l Tablet 20:04: BID, # 60 Reece n [Topamax] 00 tab, 2 Refill(s), Pharmacy: [facility] #[id number] topiramate 2020-0 Yes 25 mg = 1 Me moria 25 MG Oral 4-15 tab, PO, l Tablet 20:04: BID, # 60 Reece n [Topamax] 00 tab, 2 Refill(s), Pharmacy: [facility] #[id number] topiramate 2020-0 Yes 25 mg = 1 Me moria 25 MG Oral 4-15 tab, PO, l Tablet 20:04: BID, # 60 Reece n [Topamax] 00 tab, 2 Refill(s), Pharmacy: [facility] #[id number] topiramate 2020-0 Yes 25 mg = 1 Me moria 25 MG Oral 4-15 tab, PO, l Tablet 20:04: BID, # 60 Reece n [Topamax] 00 tab, 2 Refill(s), Pharmacy: [facility] #[id number] topiramate 2020-0 Yes 25 mg = 1 Me moria 25 MG Oral 4-15 tab, PO, l Tablet 20:04: BID, # 60 Reece n [Topamax] 00 tab, 2 Refill(s), Pharmacy: [facility] #[id number] topiramate 2020-0 Yes 25 mg = 1 Me moria 25 MG Oral 4-15 tab, PO, l Tablet 20:04: BID, # 60 Reece n [Topamax] 00 tab, 2 Refill(s), Pharmacy: [facility] #[id number] topiramate 2020-0 Yes 25 mg = 1 Me moria 25 MG Oral 4-15 tab, PO, l Tablet 20:04: BID, # 60 Reece n [Topamax] 00 tab, 2 Refill(s), Pharmacy: [facility] #[id number] topiramate 2020-0 Yes 25 mg = 1 Me moria 25 MG Oral 4-15 tab, PO, l Tablet 20:04: BID, # 60 Reece n [Topamax] 00 tab, 2 Refill(s), Pharmacy: [facility] #[id number] topiramate 2020-0 Yes 25 mg = 1 Me moria 25 MG Oral 4-15 tab, PO, l Tablet 20:04: BID, # 60 Reece n [Topamax] 00 tab, 2 Refill(s), Pharmacy: [facility] #[id number] topiramate 2020-0 Yes 25 mg = 1 Me moria 25 MG Oral 4-15 tab, PO, l Tablet 20:04: BID, # 60 Reece n [Topamax] 00 tab, 2 Refill(s), Pharmacy: [facility] #[id number] topiramate 2020-0 Yes 25 mg = 1 Me moria 25 MG Oral 4-15 tab, PO, l Tablet 20:04: BID, # 60 Reece n [Topamax] 00 tab, 2 Refill(s), Pharmacy: [facility] #[id number] topiramate 2020-0 Yes 25 mg = 1 Me moria 25 MG Oral 4-15 tab, PO, l Tablet 20:04: BID, # 60 Reece n [Topamax] 00 tab, 2 Refill(s), Pharmacy: [facility] #[id number] topiramate 2020-0 Yes 25 mg = 1 Me moria 25 MG Oral 4-15 tab, PO, l Tablet 20:04: BID, # 60 Reece n [Topamax] 00 tab, 2 Refill(s), Pharmacy: [facility] #[id number] topiramate 2020-0 Yes 25 mg = 1 Me moria 25 MG Oral 4-15 tab, PO, l Tablet 20:04: BID, # 60 Reece n [Topamax] 00 tab, 2 Refill(s), Pharmacy: [facility] #[id number] topiramate 2020-0 Yes 25 mg = 1 Me moria 25 MG Oral 4-15 tab, PO, l Tablet 20:04: BID, # 60 Reece n [Topamax] 00 tab, 2 Refill(s), Pharmacy: [facility] #[id number] topiramate 2020-0 Yes 25 mg = 1 Me moria 25 MG Oral 4-15 tab, PO, l Tablet 20:04: BID, # 60 Reece n [Topamax] 00 tab, 2 Refill(s), Pharmacy: [facility] #[id number] topiramate 2020-0 Yes 25 mg = 1 Me moria 25 MG Oral 4-15 tab, PO, l Tablet 20:04: BID, # 60 Reece n [Topamax] 00 tab, 2 Refill(s), Pharmacy: [facility] #[id number] topiramate 2020-0 Yes 25 mg = 1 Me moria 25 MG Oral 4-15 tab, PO, l Tablet 20:04: BID, # 60 Reece n [Topamax] 00 tab, 2 Refill(s), Pharmacy: [facility] #[id number] topiramate 2020-0 Yes 25 mg = 1 Me moria 25 MG Oral 4-15 tab, PO, l Tablet 20:04: BID, # 60 Reece n [Topamax] 00 tab, 2 Refill(s), Pharmacy: [facility] #[id number] topiramate 2020-0 Yes 25 mg = 1 Me moria 25 MG Oral 4-15 tab, PO, l Tablet 20:04: BID, # 60 Reece n [Topamax] 00 tab, 2 Refill(s), Pharmacy: [facility] [place] #[id number] Morphine 2020-0 Yes 15 mg, PO, Mem oria 2-25 Q12H, 0 l 19:30: Refill(s) [place] Morphine 2020-0 Yes 15 mg, PO, Mem oria 2-25 Q12H, 0 l 19:30: Refill(s) [place] 00 Morphine 2020-0 Yes 15 mg, PO, Mem oria 2-25 Q12H, 0 l 19:30: Refill(s) [place] Morphine 2020-0 Yes 15 mg, PO, Mem oria 2-25 Q12H, 0 l 19:30: Refill(s) [place] 00 Morphine 2020-0 Yes 15 mg, PO, Mem oria 2-25 Q12H, 0 l 19:30: Refill(s) [place] 00 Morphine 2020-0 Yes 15 mg, PO, Mem oria 2-25 Q12H, 0 l 19:30: Refill(s) [place] 00 Morphine 2020-0 Yes 15 mg, PO, Mem oria 2-25 Q12H, 0 l 19:30: Refill(s) [place] 00 Morphine 2020-0 Yes 15 mg, PO, Mem oria 2-25 Q12H, 0 l 19:30: Refill(s) [place] 00 Morphine 2020-0 Yes 15 mg, PO, Mem oria 2-25 Q12H, 0 l 19:30: Refill(s) [place] 00 Morphine 2020-0 Yes 15 mg, PO, Mem oria 2-25 Q12H, 0 l 19:30: Refill(s) [place] 00 Morphine 2020-0 Yes 15 mg, PO, Mem oria 2-25 Q12H, 0 l 19:30: Refill(s) [place] 00 Morphine 2020-0 Yes 15 mg, PO, Mem oria 2-25 Q12H, 0 l 19:30: Refill(s) [place] 00 Morphine 2020-0 Yes 15 mg, PO, Mem oria 2-25 Q12H, 0 l 19:30: Refill(s) [place] 00 Morphine 2020-0 Yes 15 mg, PO, Mem oria 2-25 Q12H, 0 l 19:30: Refill(s) [place] 00 Morphine 2020-0 Yes 15 mg, PO, Mem oria 2-25 Q12H, 0 l 19:30: Refill(s) [place] 00 Morphine 2020-0 Yes 15 mg, PO, [...] oria 2-25 Q12H, 0 l 19:30: Refill(s) [place] 00 topiramate 2020-0 Yes 25 mg = 1 Me moria 25 MG Oral 2-14 tab, PO, l Tablet 23:50: BID, # 60 Reece n [Topamax] 00 tab, 2 Refill(s), Pharmacy: [facility] #[id number] topiramate 2020-0 Yes 25 mg = 1 Me moria 25 MG Oral 2-14 tab, PO, l Tablet 23:50: BID, # 60 Reece n [Topamax] 00 tab, 2 Refill(s), Pharmacy: [facility] #[id number] topiramate 2020-0 Yes 25 mg = 1 Me moria 25 MG Oral 2-14 tab, PO, l Tablet 23:50: BID, # 60 Reece n [Topamax] 00 tab, 2 Refill(s), Pharmacy: [facility] #[id number] topiramate 2020-0 Yes 25 mg = 1 Me moria 25 MG Oral 2-14 tab, PO, l Tablet 23:50: BID, # 60 Reece n [Topamax] 00 tab, 2 Refill(s), Pharmacy: [facility] #[id number] topiramate 2020-0 Yes 25 mg = 1 Me moria 25 MG Oral 2-14 tab, PO, l Tablet 23:50: BID, # 60 Reece n [Topamax] 00 tab, 2 Refill(s), Pharmacy: [facility] #[id number] topiramate 2020-0 Yes 25 mg = 1 Me moria 25 MG Oral 2-14 tab, PO, l Tablet 23:50: BID, # 60 Reece n [Topamax] 00 tab, 2 Refill(s), Pharmacy: [facility] #[id number] topiramate 2020-0 Yes 25 mg = 1 Me moria 25 MG Oral 2-14 tab, PO, l Tablet 23:50: BID, # 60 Reece n [Topamax] 00 tab, 2 Refill(s), Pharmacy: [facility] #[id number] topiramate 2020-0 Yes 25 mg = 1 Me moria 25 MG Oral 2-14 tab, PO, l Tablet 23:50: BID, # 60 Reece n [Topamax] 00 tab, 2 Refill(s), Pharmacy: [facility] #[id number] topiramate 2020-0 Yes 25 mg = 1 Me moria 25 MG Oral 2-14 tab, PO, l Tablet 23:50: BID, # 60 Reece n [Topamax] 00 tab, 2 Refill(s), Pharmacy: [facility] [place] [facility] #[id number] topiramate 2020-0 Yes 25 mg = 1 Me moria 25 MG Oral 2-14 tab, PO, l Tablet 23:50: BID, # 60 Reece n [Topamax] 00 tab, 2 Refill(s), Pharmacy: [facility] [place] [facility] #[id number] topiramate 2020-0 Yes 25 mg = 1 Me moria 25 MG Oral 2-14 tab, PO, l Tablet 23:50: BID, # 60 Reece n [Topamax] 00 tab, 2 Refill(s), Pharmacy: [facility] [place] [facility] #[id number] topiramate 2020-0 Yes 25 mg = 1 Me moria 25 MG Oral 2-14 tab, PO, l Tablet 23:50: BID, # 60 Reece n [Topamax] 00 tab, 2 Refill(s), Pharmacy: [facility] [place] [facility] #[id number] topiramate 2020-0 Yes 25 mg = 1 Me moria 25 MG Oral 2-14 tab, PO, l Tablet 23:50: BID, # 60 Reece n [Topamax] 00 tab, 2 Refill(s), Pharmacy: [facility] [place] [facility] #[id number] topiramate 2020-0 Yes 25 mg = 1 Me moria 25 MG Oral 2-14 tab, PO, l Tablet 23:50: BID, # 60 Reece n [Topamax] 00 tab, 2 Refill(s), Pharmacy: [facility] #[id number] topiramate 2020-0 Yes 25 mg = 1 Me moria 25 MG Oral 2-14 tab, PO, l Tablet 23:50: BID, # 60 Reece n [Topamax] 00 tab, 2 Refill(s), Pharmacy: [facility] #[id number] topiramate 2020-0 Yes 25 mg = 1 Me moria 25 MG Oral 2-14 tab, PO, l Tablet 23:50: BID, # 60 Reece n [Topamax] 00 tab, 2 Refill(s), Pharmacy: [facility] #[id number] topiramate 2020-0 Yes 25 mg = 1 Me moria 25 MG Oral 2-14 tab, PO, l Tablet 23:50: BID, # 60 Reece n [Topamax] 00 tab, 2 Refill(s), Pharmacy: [facility] #[id number] topiramate 2020-0 Yes 25 mg = 1 Me moria 25 MG Oral 2-14 tab, PO, l Tablet 23:50: BID, # 60 Reece n [Topamax] 00 tab, 2 Refill(s), Pharmacy: [facility] [facility] #[id number] topiramate 2020-0 Yes 25 mg = 1 Me moria 25 MG Oral 2-14 tab, PO, l Tablet 23:50: BID, # 60 Reece n [Topamax] 00 tab, 2 Refill(s), Pharmacy: [facility] #[id number] topiramate 2020-0 Yes 25 mg = 1 Me moria 25 MG Oral 2-14 tab, PO, l Tablet 23:50: BID, # 60 Reece n [Topamax] 00 tab, 2 Refill(s), Pharmacy: [facility] [place] [facility] #[id number] Aspirin 81 2020-0 Yes 81 mg = 1 Me moria MG Enteric 1-09 tab, PO, l Coated 23:31: Daily, # [place] Tablet 00 90 tab, 3 Refill(s) Aspirin [...] tab, PO, l Coated 23:31: Daily, # [place] Tablet 00 90 tab, 3 Refill(s) Aspirin 81 2020-0 Yes 81 mg = 1 Me moria MG Enteric - tab, PO, l Coated 23:31: Daily, # [place] Tablet 00 90 tab, 3 Refill(s) Aspirin 81 2020-0 Yes 81 mg = 1 Me moria MG Enteric - tab, PO, l Coated 23:31: Daily, # [place] Tablet 00 90 tab, 3 Refill(s) Aspirin 81 2020-0 Yes 81 mg = 1 Me moria MG Enteric - tab, PO, l Coated 23:31: Daily, # [place] Tablet 00 90 tab, 3 Refill(s) Aspirin 81 2020-0 Yes 81 mg = 1 Me moria MG Enteric - tab, PO, l Coated 23:31: Daily, # [place] Tablet 00 90 tab, 3 Refill(s) Aspirin 81 2020-0 Yes 81 mg = 1 Me moria MG Enteric - tab, PO, l Coated 23:31: Daily, # [place] Tablet 00 90 tab, 3 Refill(s) Aspirin 81 2020-0 Yes 81 mg = 1 Me moria MG Enteric - tab, PO, l Coated 23:31: Daily, # [place] Tablet 00 90 tab, 3 Refill(s) Aspirin 81 2020-0 Yes 81 mg = 1 Me moria MG Enteric - tab, PO, l Coated 23:31: Daily, # [place] Tablet 00 90 tab, 3 Refill(s) Aspirin 81 2020-0 Yes 81 mg = 1 Me moria MG Enteric - tab, PO, l Coated 23:31: Daily, # [place] Tablet 00 90 tab, 3 Refill(s) Aspirin [...] tab, PO, l Coated 23:31: Daily, # [place] Tablet 00 90 tab, 3 Refill(s) Aspirin 81 2020-0 Yes 81 mg = 1 Me moria MG Enteric -09 tab, PO, l Coated 23:31: Daily, # [place] Tablet 00 90 tab, 3 Refill(s) Aspirin 81 2020-0 Yes 81 mg = 1 Me moria MG Enteric - tab, PO, l Coated 23:31: Daily, # [place] Tablet 00 90 tab, 3 Refill(s) oxcarbazepi 2020-0 Yes 150 mg = 1 Memoria ne 150 MG 1-09 tab, PO, l Oral Tablet 23:05: Bedtime, # [place] [Trileptal] 00 30 tab, 3 Refill(s), Pharmacy: [facility] #[id number] oxcarbazepi 2020-0 Yes 150 mg = 1 Memoria ne 150 MG 1-09 tab, PO, l Oral Tablet 23:05: Bedtime, # [place] [Trileptal] 00 30 tab, 3 Refill(s), Pharmacy: [facility] #[id number] oxcarbazepi 2020-0 Yes 150 mg = 1 Memoria ne 150 MG -09 tab, PO, l Oral Tablet 23:05: Bedtime, # [place] [Trileptal] 00 30 tab, 3 Refill(s), Pharmacy: [facility] #[id number] oxcarbazepi 2020-0 Yes 150 mg = 1 Memoria ne 150 MG 1-09 tab, PO, l Oral Tablet 23:05: Bedtime, # [place] [Trileptal] 00 30 tab, 3 Refill(s), Pharmacy: [facility] #[id number] oxcarbazepi 2020-0 Yes 150 mg = 1 Memoria ne 150 MG 1-09 tab, PO, l Oral Tablet 23:05: Bedtime, # [place] [Trileptal] 00 30 tab, 3 Refill(s), Pharmacy: [facility] #[id number] oxcarbazepi 2020-0 Yes 150 mg = 1 Memoria ne 150 MG 1-09 tab, PO, l Oral Tablet 23:05: Bedtime, # [place] [Trileptal] 00 30 tab, 3 Refill(s), [id number] oxcarbazepi 2020-0 Yes 150 mg = 1 Memoria ne 150 MG 1-09 tab, PO, l Oral Tablet 23:05: Bedtime, # [place] [Trileptal] 00 30 tab, 3 Refill(s), [id number] oxcarbazepi 2020-0 Yes 150 mg = 1 Memoria ne 150 MG 1-09 tab, PO, l Oral Tablet 23:05: Bedtime, # [place] [Trileptal] 00 30 tab, 3 Refill(s), [id number] oxcarbazepi 2020-0 Yes 150 mg = 1 Memoria ne 150 MG 1-09 tab, PO, l Oral Tablet 23:05: Bedtime, # [place] [Trileptal] 00 30 tab, 3 Refill(s), [facility][id number] oxcarbazepi 2020-0 Yes 150 mg = 1 Memoria ne 150 MG 1-09 tab, PO, l Oral Tablet 23:05: Bedtime, # [place] [Trileptal] 00 30 tab, 3 Refill(s), [id number] oxcarbazepi 2020-0 Yes 150 mg = 1 Memoria ne 150 MG 1-09 tab, PO, l Oral Tablet 23:05: Bedtime, # [place] [Trileptal] 00 30 tab, 3 Refill(s), [facility][id number] oxcarbazepi 2020-0 Yes 150 mg = 1 Memoria ne 150 MG 1-09 tab, PO, l Oral Tablet 23:05: Bedtime, # [place] [Trileptal] 00 30 tab, 3 Refill(s), [id number] oxcarbazepi 2020-0 Yes 150 mg = 1 Memoria ne 150 MG 1-09 tab, PO, l Oral Tablet 23:05: Bedtime, # [place] [Trileptal] 00 30 tab, 3 Refill(s), [id number] oxcarbazepi 2020-0 Yes 150 mg = 1 Memoria ne 150 MG 1-09 tab, PO, l Oral Tablet 23:05: Bedtime, # [place] [Trileptal] 00 30 tab, 3 Refill(s), Pharmacy: [facility] #[id number] oxcarbazepi 2020-0 Yes 150 mg = 1 Memoria ne 150 MG 1-09 tab, PO, l Oral Tablet 23:05: Bedtime, # [place] [Trileptal] 00 30 tab, 3 Refill(s), Pharmacy: [facility] #[id number] oxcarbazepi 2020-0 Yes 150 mg = 1 Memoria ne 150 MG 1-09 tab, PO, l Oral Tablet 23:05: Bedtime, # [place] [Trileptal] 00 30 tab, 3 Refill(s), Pharmacy: [facility] #[id number] oxcarbazepi 2020-0 Yes 150 mg = 1 Memoria ne 150 MG 1-09 tab, PO, l Oral Tablet 23:05: Bedtime, # [place] [Trileptal] 00 30 tab, 3 Refill(s), Pharmacy: [facility] #[id number] oxcarbazepi 2020-0 Yes 150 mg = 1 Memoria ne 150 MG 1-09 tab, PO, l Oral Tablet 23:05: Bedtime, # [place] [Trileptal] 00 30 tab, 3 Refill(s), Pharmacy: [facility] #[id number] oxcarbazepi 2020-0 Yes 150 mg = 1 Memoria ne 150 MG 1-09 tab, PO, l Oral Tablet 23:05: Bedtime, # [place] [Trileptal] 00 30 tab, 3 Refill(s), Pharmacy: [facility] #[id number] oxcarbazepi 2020-0 Yes 150 mg = 1 Memoria ne 150 MG 1-09 tab, PO, l Oral Tablet 23:05: Bedtime, # [place] [Trileptal] 00 30 tab, 3 Refill(s), Pharmacy: [facility] #[id number] atorvastati 2018- Yes 40 mg = 1 M emoria n 40 mg 2-11 tab, PO, l oral tablet 23:32: Daily, # Brendon monet 39 30 tab, 2 Refill(s), Pharmacy: [facility] #[id number] [place] 2018-11 Yes 40 mg = 1 M emoria n 40 mg 2-11 tab, PO, l oral tablet 23:32: Daily, # He rmann 39 30 tab, 2 Refill(s), Pharmacy: [facility] [place] [facility][id number] [facility] Yes 40 mg = 1 M emoria n 40 mg 2-11 tab, PO, l oral tablet 23:32: Daily, # [place] 39 30 tab, 2 Refill(s), Pharmacy: [facility] [place] [facility] #[id number] [place] 2018-11 Yes 40 mg = 1 M emoria n 40 mg 2-11 tab, PO, l oral tablet 23:32: Daily, # [place] 39 30 tab, 2 Refill(s), Pharmacy: [facility] [place] [facility] #[id number] [employer] 2018-11 Yes 40 mg = 1 M emoria n 40 mg 2-11 tab, PO, l oral tablet 23:32: Daily, # [place] 39 30 tab, 2 Refill(s), Pharmacy: [facility] [place] [facility] #[id number] [place] 2018-11 Yes 40 mg = 1 M emoria n 40 mg 2-11 tab, PO, l oral tablet 23:32: Daily, # [place] 39 30 tab, 2 Refill(s), Pharmacy: [facility] [place] [facility] #[id number] [employer] 2018-11 Yes 40 mg = 1 M emoria n 40 mg 2-11 tab, PO, l oral tablet 23:32: Daily, # [place] 39 30 tab, 2 Refill(s), Pharmacy: [facility] [place] [facility] #[id number] [place] 2018-11 Yes 40 mg = 1 M emoria n 40 mg 2-11 tab, PO, l oral tablet 23:32: Daily, # [place] 39 30 tab, 2 Refill(s), Pharmacy: [facility] #[id number] [employer] 2018-11 Yes 40 mg = 1 M emoria n 40 mg 2-11 tab, PO, l oral tablet 23:32: Daily, # [place] 39 30 tab, 2 Refill(s), Pharmacy: [facility] [place] [facility] #[id number] [facility]11 Yes 40 mg = 1 M emoria n 40 mg 2-11 tab, PO, l oral tablet 23:32: Daily, # [place] 39 30 tab, 2 Refill(s), Pharmacy: [facility] #[id number] [facility] 2018-11 Yes 40 mg = 1 M emoria n 40 mg 2-11 tab, PO, l oral tablet 23:32: Daily, # [place] 39 30 tab, 2 Refill(s), Pharmacy: [facility] #[id number] [facility] 2018-11 Yes 40 mg = 1 M emoria n 40 mg 2-11 tab, PO, l oral tablet 23:32: Daily, # [place] 39 30 tab, 2 Refill(s), Pharmacy: [facility] #[id number] [facility] 2018-11 Yes 40 mg = 1 M emoria n 40 mg 2-11 tab, PO, l oral tablet 23:32: Daily, # [place] 39 30 tab, 2 Refill(s), Pharmacy: [facility] [place] [facility] #[id number] [facility] 2018-11 Yes 40 mg = 1 M emoria n 40 mg 2-11 tab, PO, l oral tablet 23:32: Daily, # [place] 39 30 tab, 2 Refill(s), Pharmacy: [facility] #[id number] [facility] 2018-11 Yes 40 mg = 1 M emoria n 40 mg 2-11 tab, PO, l oral tablet 23:32: Daily, # [place] 39 30 tab, 2 Refill(s), Pharmacy: [facility] #[id number] [facility] 2018-11 Yes 40 mg = 1 M emoria n 40 mg 2-11 tab, PO, l oral tablet 23:32: Daily, # [place] 39 30 tab, 2 Refill(s), Pharmacy: [facility] [place] [facility] #[id number] [facility] 2018-11 Yes 40 mg = 1 M emoria n 40 mg 2-11 tab, PO, l oral tablet 23:32: Daily, # He r[place] 39 30 tab, 2 Refill(s), Pharmacy: [facility] [place] [facility] #[id number] [facility] 2018-11 Yes 40 mg = 1 M emoria n 40 mg 2-11 tab, PO, l oral tablet 23:32: Daily, # Brendon rmann 39 30 tab, 2 Refill(s), Pharmacy: [facility] [place] [facility] #[id number] atorvasta 2018-11 Yes 40 mg = 1 M emoria n 40 mg 2-11 tab, PO, l oral tablet 23:32: Daily, # Brendon rmann 39 30 tab, 2 Refill(s), Pharmacy: [facility][id number] [facility] 2018-11 Yes 40 mg = 1 M emoria n 40 mg 2-11 tab, PO, l oral tablet 23:32: Daily, # Brendon rmann 39 30 tab, 2 Refill(s), Pharmacy: [facility] [place] [facility] #[id number] [facility] 2018-11 Yes 25 mg = 1 Me moria 25 MG Oral 0-23 tab, PO, l Tablet 18:40: BID, # 60 Re[place] n [Topamax] 02 tab, 2 Refill(s), Pharmacy: [facility] [place] [facility] #[id number] [facility] 2018-11 Yes 25 mg = 1 Me moria 25 MG Oral 0-23 tab, PO, l Tablet 18:40: BID, # 60 Re[place] n [Topamax] 02 tab, 2 Refill(s), Pharmacy: [facility] [place] [facility] #[id number] [facility] 2018-11 Yes 25 mg = 1 Me moria 25 MG Oral 0-23 tab, PO, l Tablet 18:40: BID, # 60 Re[place] n [Topamax] 02 tab, 2 Refill(s), Pharmacy: [facility] [place] [facility] #[id number] topiramate 2018-11 Yes 25 mg = 1 Me moria 25 MG Oral 0-23 tab, PO, l Tablet 18:40: BID, # 60 [place] n [Topamax] 02 tab, 2 Refill(s), Pharmacy: [facility] #[id number] topiramate 2018-11 Yes 25 mg = 1 Me moria 25 MG Oral 0-23 tab, PO, l Tablet 18:40: BID, # 60 Re[place] n [Topamax] 02 tab, 2 Refill(s), Pharmacy: [facility] #[id number] topiramate 2018-11 Yes 25 mg = 1 Me moria 25 MG Oral 0-23 tab, PO, l Tablet 18:40: BID, # 60 [place] n [Topamax] 02 tab, 2 Refill(s), Pharmacy: [facility] [address] [place] [address] 2018-11 Yes 25 mg = 1 Me moria 25 MG Oral 0-23 tab, PO, l Tablet 18:40: BID, # 60 Re[place] n [Topamax] 02 tab, 2 Refill(s), Pharmacy: [facility] [address] [place] [address] 2018-11 Yes 25 mg = 1 Me moria 25 MG Oral 0-23 tab, PO, l Tablet 18:40: BID, # 60 [place] n [Topamax] 02 tab, 2 Refill(s), Pharmacy: [facility] [address] [place] [address] 2018-11 Yes 25 mg = 1 Me moria 25 MG Oral 0-23 tab, PO, l Tablet 18:40: BID, # 60 [place] n [Topamax] 02 tab, 2 Refill(s), Pharmacy: [facility] [address] [place] [address] 2018-11 Yes 25 mg = 1 Me moria 25 MG Oral 0-23 tab, PO, l Tablet 18:40: BID, # 60 Reece n [Topamax] 02 tab, 2 Refill(s), Pharmacy: [facility] [address] [place] [address] 2018-11 Yes 25 mg = 1 Me moria 25 MG Oral 0-23 tab, PO, l Tablet 18:40: BID, # 60 Re[place] n [Topamax] 02 tab, 2 Refill(s), Pharmacy: [facility] [address] [place] [address] 2018-11 Yes 25 mg = 1 Me moria 25 MG Oral 0-23 tab, PO, l Tablet 18:40: BID, # 60 Reece n [Topamax] 02 tab, 2 Refill(s), Pharmacy: [facility] #[address] [place] [address] 2018-11 Yes 25 mg = 1 Me moria 25 MG Oral 0-23 tab, PO, l Tablet 18:40: BID, # 60 Reece n [Topamax] 02 tab, 2 Refill(s), Pharmacy: [facility] [address] [place] [address] 2018-11 Yes 25 mg = 1 Me moria 25 MG Oral 0-23 tab, PO, l Tablet 18:40: BID, # 60 Reece n [Topamax] 02 tab, 2 Refill(s), Pharmacy: [facility][id number] [facility] Yes 25 mg = 1 Me moria 25 MG Oral 0-23 tab, PO, l Tablet 18:40: BID, # 60 Reece n [Topamax] 02 tab, 2 Refill(s), Pharmacy: [facility][id number] [facility] Yes 25 mg = 1 Me moria 25 MG Oral 0-23 tab, PO, l Tablet 18:40: BID, # 60 Reece n [Topamax] 02 tab, 2 Refill(s), Pharmacy: [facility] #[id number] [facility] 2018[facility]11 Yes 25 mg = 1 Me moria 25 MG Oral 0-23 tab, PO, l Tablet 18:40: BID, # 60 Reece n [Topamax] 02 tab, 2 Refill(s), Pharmacy: [facility] #[id number] [facility] 2018[facility]11 Yes 25 mg = 1 Me moria 25 MG Oral 0-23 tab, PO, l Tablet 18:40: BID, # 60 Reece n [Topamax] 02 tab, 2 Refill(s), Pharmacy: [facility] #[id number] [facility] 2018-11 Yes 25 mg = 1 Me moria 25 MG Oral 0-23 tab, PO, l Tablet 18:40: BID, # 60 Reece n [Topamax] 02 tab, 2 Refill(s), Pharmacy: [facility] #[id number] [facility] 2018[facility] Yes 25 mg = 1 Me moria 25 MG Oral 0-23 tab, PO, l Tablet 18:40: BID, # 60 Reece n [Topamax] 02 tab, 2 Refill(s), Pharmacy: [facility] #[id number] [facility] Yes 25 mg = 1 Me moria 25 MG Oral 8-21 tab, PO, l Tablet 15:45: Bedtime, # [place] nn [Topamax] 00 30 tab, 2 Refill(s), Pharmacy: [facility] #[id number] topiramate 2019-0 Yes 25 mg = 1 Me moria 25 MG Oral 8-21 tab, PO, l Tablet 15:45: Bedtime, # Mary nn [Topamax] 00 30 tab, 2 Refill(s), Pharmacy: [facility] #[id number] topiramate 2019-0 Yes 25 mg = 1 Me moria 25 MG Oral 8-21 tab, PO, l Tablet 15:45: Bedtime, # [place] nn [Topamax] 00 30 tab, 2 Refill(s), Pharmacy: [facility] #[id number] topiramate 2019-0 Yes 25 mg = 1 Me moria 25 MG Oral 8-21 tab, PO, l Tablet 15:45: Bedtime, # [place] nn [Topamax] 00 30 tab, 2 Refill(s), Pharmacy: [facility] #[id number] topiramate 2019-0 Yes 25 mg = 1 Me moria 25 MG Oral 8-21 tab, PO, l Tablet 15:45: Bedtime, # [place] nn [Topamax] 00 30 tab, 2 Refill(s), Pharmacy: [facility] #[id number] topiramate 2019-0 Yes 25 mg = 1 Me moria 25 MG Oral 8-21 tab, PO, l Tablet 15:45: Bedtime, # [place] nn [Topamax] 00 30 tab, 2 Refill(s), Pharmacy: [facility] #[id number] topiramate 2019-0 Yes 25 mg = 1 Me moria 25 MG Oral 8-21 tab, PO, l Tablet 15:45: Bedtime, # [place] nn [Topamax] 00 30 tab, 2 Refill(s), Pharmacy: [facility] #[id number] topiramate 2019-0 Yes 25 mg = 1 Me moria 25 MG Oral 8-21 tab, PO, l Tablet 15:45: Bedtime, # Mary nn [Topamax] 00 30 tab, 2 Refill(s), Pharmacy: [facility] #[id number] topiramate 2019-0 Yes 25 mg = 1 Me moria 25 MG Oral 8-21 tab, PO, l Tablet 15:45: Bedtime, # Mary nn [Topamax] 00 30 tab, 2 Refill(s), [id number] topiramate 2019-0 Yes 25 mg = 1 Me moria 25 MG Oral 8-21 tab, PO, l Tablet 15:45: Bedtime, # Mary nn [Topamax] 00 30 tab, 2 Refill(s), Pharmacy: [facility] #[id number] topiramate 2019-0 Yes 25 mg = 1 Me moria 25 MG Oral 8-21 tab, PO, l Tablet 15:45: Bedtime, # Mary nn [Topamax] 00 30 tab, 2 Refill(s), [id number] topiramate 2019-0 Yes 25 mg = 1 Me moria 25 MG Oral 8-21 tab, PO, l Tablet 15:45: Bedtime, # Mary nn [Topamax] 00 30 tab, 2 Refill(s), Pharmacy: [facility] #[id number] topiramate 2019-0 Yes 25 mg = 1 Me moria 25 MG Oral 8-21 tab, PO, l Tablet 15:45: Bedtime, # Mary nn [Topamax] 00 30 tab, 2 Refill(s), [id number] topiramate 2019-0 Yes 25 mg = 1 Me moria 25 MG Oral 8-21 tab, PO, l Tablet 15:45: Bedtime, # Mary nn [Topamax] 00 30 tab, 2 Refill(s), Pharmacy: [facility] #[id number] topiramate 2019-0 Yes 25 mg = 1 Me moria 25 MG Oral 8-21 tab, PO, l Tablet 15:45: Bedtime, # Mary nn [Topamax] 00 30 tab, 2 Refill(s), [id number] topiramate 2019-0 Yes 25 mg = 1 Me moria 25 MG Oral 8-21 tab, PO, l Tablet 15:45: Bedtime, # Mary nn [Topamax] 00 30 tab, 2 Refill(s), [id number] topiramate 2019-0 Yes 25 mg = 1 Me moria 25 MG Oral 8-21 tab, PO, l Tablet 15:45: Bedtime, # Mary nn [Topamax] 00 30 tab, 2 Refill(s), Pharmacy: [facility] ST[facility] #[id number] topiramate 2019-0 Yes 25 mg = 1 Me moria 25 MG Oral 8-21 tab, PO, l Tablet 15:45: Bedtime, # Mary nn [Topamax] 00 30 tab, 2 Refill(s), Pharmacy: [facility] #[id number] topiramate 2019-0 Yes 25 mg = 1 Me moria 25 MG Oral 8-21 tab, PO, l Tablet 15:45: Bedtime, # Mary nn [Topamax] 00 30 tab, 2 Refill(s), Pharmacy: [facility] #[id number] topiramate 2019-0 Yes 25 mg = 1 Me moria 25 MG Oral 8-21 tab, PO, l Tablet 15:45: Bedtime, # Mary nn [Topamax] 00 30 tab, 2 Refill(s), Pharmacy: [facility] #[id number] atorvastati 2018-0 Yes PO, Daily, Memoria n [...] release gabapentin 0 Yes 600 mg, Rao ciaty 8-21 PO, TID, 0 l 15:00: Refill(s) [...] tab, PO, l tablet, 15:00: Q6H, 0 [place] Refill(s) release gabapentin 0 Yes 600 mg, [...] tab, PO, l Tablet 15:00: Q8H, 0 [place] [Zofran] Refill(s) Hydroxyzine 2019- Yes 25 mg [...] tab, PO, l tablet, 15:00: Q6H, 0 [place] Refill(s) release gabapentin 2019-0 Yes 600 mg, [...] 8-21 Q8H, 0 l 15:00: Refill(s) oxyCODONE 2019- Yes 10 mg = 1 Mem oria 10 mg oral 8-21 tab, PO, l tablet, 15:00: Q6H, 0 [place] 00 Refill(s) release gabapentin 2019-0 Yes 600 mg, Rao caity 8- PO, TID, 0 l 15:00: Refill(s) Ambien 20190 Yes 5 mg, PO, Memori a 8 Bedtime, 0 l 15:00: Refill(s) Lidocaine 2019-0 Yes See Memoria 07-18 Instructio l 15:00: ns, 5 % Transderma l q12, 0 Refill(s) Protonix 20190 Yes 40 mg, PO, Mem oria 8 Daily, 0 l 15:00: Refill(s) Ondansetron 2019- Yes 4 mg = 1 Me moria 4 MG Oral 8 tab, PO, l Tablet 15:00: Q8H, 0 [place] [Zofran] 00 Refill(s) Hydroxyzine 20190 Yes 25 mg = 1 M emoria 8-21 tab, PO, l 15:00: Q6H, PRN rash / allergy symptoms, 0 Refill(s) Ondansetron 2019-0 Yes 4 mg = [...] Immunizations Ordered Filled Immunization Date Status Comments [facility] e Immunization Name Name RDZX-QbV-0IPHGS-19m 2021-04-06 Completed Memor ial [place] RNA-1273vaxMODERNA< 00:00:00 sup>1</sup> ZLXW-OcD-5BNHLN-19 2021-04-06 Completed [facility] [place] RNA-1273vaxMODERNA< 00:00:00 sup>1</sup> DWQZ-MgP-6LVMWK-19 2021-04-06 Completed [facility] [place] RNA-1273vaxMODERNA< 00:00:00 sup>1</sup> BUWC-EdP-0DMLIH-19 2021-04-06 Completed [facility] [place] RNA-1273vaxMODERNA< 00:00:00 sup>1</sup> SCUG-UfN-2IOAWT-19 2021-04-06 Completed [facility] [place] RNA-1273vaxMODERNA< 00:00:00 sup>1</sup> SARS-COV-2 COVID-19 2021-04-06 Completed Unive rsity of MODERNA VACCINE 00:00:00 [facility] SARS-COV-2 COVID-19 2021-04-06 Completed Unive rsity of MODERNA VACCINE 00:00:00 [facility] SARS-COV-2 COVID-19 2021-04-06 Completed Unive rsity of MODERNA VACCINE 00:00:00 [facility] SARS-COV-2 COVID-19 2021-04-06 Completed Unive rsity of MODERNA VACCINE 00:00:00 [facility] SARS-COV-2 COVID-19 2021-04-06 Completed Unive rsity of MODERNA VACCINE 00:00:00 [facility] ZRSM-GfV-0UWJDP-19 2021-04-06 Completed Memor ial [place] RNA-1273vaxMODERNA< 00:00:00 sup>1</sup> TNKL-YnU-4UYBKT-19 2021-04-06 Completed [facility] [place] RNA-1273vaxMODERNA< 00:00:00 sup>1</sup> KLER-FeO-4RVAYM-19 2021-04-06 Completed Mem[facility] ial [place] RNA-1273vaxMODERNA< 00:00:00 sup>1</sup> XPBA-IuX-3BIQSW- 2021-04-06 Completed [facility] [place] RNA-1273vaxMODERNA< 00:00:00 sup>1</sup> VJGW-WaC-3JHUCZ-19 2021-04-06 Completed [facility] [place] RNA-1273vaxMODERNA< 00:00:00 sup>1</sup> OGCC-KgS-9HEAHO- 2021-04-06 Completed [facility] [place] RNA-1273vaxMODERNA< 00:00:00 sup>1</sup> NZKG-SrI-5VLCSD- 2021-04-06 Completed [facility] [place] RNA-1273vaxMODERNA< 00:00:00 sup>1</sup> EPBQ-YyJ-9GRWUU-[facility] 2021-04-06 Completed Memor ial [place] RNA-1273vaxMODERNA< 00:00:00 sup>1</sup> KAAQ-XdK-7TPUWG-[facility] 2021-04-06 Completed [facility] ial [place] RNA-1273vaxMODERNA< 00:00:00 sup>1</sup> UMXZ-QmQ-2AMOLN- 2021-04-06 Completed [facility] [place] RNA-1273vaxMODERNA< 00:00:00 sup>1</sup> KNXS-VrZ-2NETFC-[facility] 2021-04-06 Completed [facility] [place] RNA-1273vaxMODERNA< 00:00:00 sup>1</sup> SYSI-ZnB-2QZOME- 2021-04-06 Completed [facility] [place] RNA-1273vaxMODERNA< 00:00:00 sup>1</sup> GBHZ-MmX-6WMJNP- 2021-04-06 Completed [facility] [place] RNA-1273vaxMODERNA< 00:00:00 sup>1</sup> MJNG-ShF-4KWNLB-[facility] 2021-04-06 Completed [facility] [place] RNA-1273vaxMODERNA< 00:00:00 sup>1</sup> QEYI-MhQ-4ZLVUQ-19m 2021-04-06 Completed Olimpiaindira Gay RNA-1273vaxMODERNA< 00:00:00 sup>1</sup> SARS-COV-2 COVID-19 2021-03-12 Completed Unive rsity of MODERNA VACCINE 00:00:00 [facility] SARS-COV-2 COVID-19 2021-03-12 Completed Unive rsity of MODERNA VACCINE 00:00:00 [facility] SARS-COV-2 COVID-19 2021-03-12 Completed Unive rsity of MODERNA VACCINE 00:00:00 [facility] SARS-COV-2 COVID-19 2021-03-12 Completed Unive rsity of MODERNA VACCINE 00:00:00 [facility] SARS-COV-2 COVID-19 2021-03-12 Completed Unive rsity of MODERNA VACCINE 00:00:00 [facility] Influenza Virus 2020-11-28 Completed Universit y of Vaccine (3+ yrs) 00:00:00 [facility] Influenza Virus 2020-11-28 Completed Universit y of Vaccine (3+ yrs) 00:00:00 [facility] Influenza Virus 2020-11-28 Completed Universit y of Vaccine (3+ yrs) 00:00:00 [facility] Influenza Virus 2020-11-28 Completed Universit y of Vaccine (3+ yrs) 00:00:00 [facility] Influenza Virus 2020-11-28 Completed Universit y of Vaccine (3+ yrs) 00:00:00 [facility] Influenza Virus 2017-10-06 Completed Universit y of Vaccine Quad IM, 00:00:00 [facility] dical Preserv and ABX Branch Free 2-64 YRS Pneumococcal 13 2017-10-06 Completed Universit y of Conjugate, PCV13 00:00:00 [facility] dical (Prevnar 13) Branch Influenza Virus 2017-10-06 Completed Universit y of Vaccine Quad IM, 00:00:00 [facility] dical Preserv and ABX Branch Free 2-64 YRS Pneumococcal 13 2017-10-06 Completed Universit y of Conjugate, PCV13 00:00:00 [facility] dical (Prevnar 13) Branch Influenza Virus 2017-10-06 Completed Universit y of Vaccine Quad IM, 00:00:00 [place] [facility] Preserv and ABX Branch Free 2-64 YRS Pneumococcal 13 2017-10-06 Completed Universit y of Conjugate, PCV13 00:00:00 [facility] dical (Prevnar 13) Branch Influenza Virus 2017-10-06 Completed Universit y of Vaccine Quad IM, 00:00:00 [facility] dical Preserv and ABX Branch Free 2-64 YRS Pneumococcal 13 2017-10-06 Completed Universit y of Conjugate, PCV13 00:00:00 [facility] dical (Prevnar 13) Branch Influenza Virus 2017-10-06 Completed Universit y of Vaccine Quad IM, 00:00:00 [facility] dical Preserv and ABX Branch Free 2-64 YRS Pneumococcal 13 2017-10-06 Completed Universit y of Conjugate, PCV13 00:00:00 [facility] dical (Prevnar 13) [place] Vital Signs Vital Name Observation Time Observation Value Comments Source Systolic blood 2021-08-14 15:39:00 130 [facility] Diastolic blood 2021-08-14 15:39:00 81 mm[Hg[facility] Heart rate 2021-08-14 15:39:00 76 /min [facility] Body temperature 2021-08-14 15:39:00 37 [facility] Respiratory rate 2021-08-14 15:39:00 18 /min [facility] height 2021-08-14 15:39:00 162.6 cm [facility] Body weight 2021-08-14 15:39:00 53.933 kg [facility] BMI 2021-08-14 15:39:00 20.41 kg/m2 [facility] Oxygen saturation in 2021-08-14 15:39:00 100 /min [facility] Arterial blood by [facility] Pulse oximetry Branch Systolic (mm Hg) 2021-04-08 14:16:00 Rao Gay Diastolic (mm Hg) 2021-04-08 14:16:00 [facility] jaswinder Gay Heart Rate 2021-04-08 14:16:00 [facility] Respitory Rate 2021-04-08 14:16:00 Memori al [place] Height 2021-04-08 14:16:00 162.56 cm [facility] Weight 2021-04-08 14:16:00 [facility] BMI Calculated 2021-04-08 14:16:00 [facility] [place] Systolic (mm Hg) 2020-12-22 20:47:00 Rao rial [place] Diastolic (mm Hg) 2020-12-22 20:47:00 Mem orial [place] Height 2020-12-22 20:47:00 162.56 cm [facility] [place] Weight 2020-12-22 20:47:00 [facility] BMI Calculated 2020-12-22 20:47:00 [facility] [place] Systolic (mm Hg) 2020-07-31 18:42:00 Rao rial [place] Diastolic (mm Hg) 2020-07-31 18:42:00 Mem orial [place] Heart Rate 2020-07-31 18:42:00 [facility] Respitory Rate 2020-07-31 18:42:00 Memori al [place] Height 2020-07-31 18:42:00 162.56 cm [facility] Weight 2020-07-31 18:42:00 [facility] [place] BMI Calculated 2020-07-31 18:42:00 [facility] [place] Temperature Oral (F) 2020-07-31 18:42:00 96.9 F [facility] [place] Systolic (mm Hg) 2020-01-22 17:49:00 Rao rial [place] Diastolic (mm Hg) 2020-01-22 17:49:00 Mem orial [place] Heart Rate 2020-01-22 17:49:00 [facility] [place] Respitory Rate 2020-01-22 17:49:00 Memori al [place] Height 2020-01-22 17:49:00 162.56 cm [facility] Weight 2020-01-22 17:49:00 [facility] BMI Calculated 2020-01-22 17:49:00 Memori [facility] [place] Systolic (mm Hg) 2020-01-11 21:53:00 Rao rial [place] Diastolic (mm Hg) 2020-01-11 21:53:00 Mem orial [place] Heart Rate 2020-01-11 21:53:00 [facility] Height 2020-01-11 21:53:00 162.56 cm [facility] [place] Weight 2020-01-11 21:53:00 [facility] BMI Calculated 2020-01-11 21:53:00 Memori [facility] [place] Systolic (mm Hg) 2019-12-06 22:16:00 Rao rial [place] Diastolic (mm Hg) 2019-12-06 22:16:00 Mem [facility] [place] Heart Rate 2019-12-06 22:16:00 [facility] Respitory Rate 2019-12-06 22:16:00 [facility] [place] Height 2019-12-06 22:16:00 162.56 cm [facility] [place] Weight 2019-12-06 22:16:00 [facility] [place] BMI Calculated 2019-12-06 22:16:00 [facility] [place] BMI Calculated 2019-11-09 17:41:00 [facility] [place] Height 2019-11-09 17:41:00 162.56 cm [facility] [place] Weight 2019-11-09 17:41:00 [facility] [place] Systolic (mm Hg) 2019-09-19 18:12:00 Rao rial [place] Diastolic (mm Hg) 2019-09-19 18:12:00 Mem orial [place] Heart Rate 2019-09-19 18:12:00 [facility] [place] Respitory Rate 2019-09-19 18:12:00 Memori [facility] [place] Height 2019-09-19 18:12:00 162.56 cm [facility] Weight 2019-09-19 18:12:00 [facility] BMI Calculated 2019-09-19 18:12:00 Mem[facility] [place] Systolic (mm Hg) 2019-08-23 19:05:00 Rao rial [place] Diastolic (mm Hg) 2019-08-23 19:05:00 Mem orial [place] Heart Rate 2019-08-23 19:05:00 [facility] [place] Respitory Rate 2019-08-23 19:05:00 Memori al [place] Height 2019-08-23 19:05:00 162.56 cm [facility] [place] Weight 2019-08-23 19:05:00 [facility] BMI Calculated 2019-08-23 19:05:00 Memori [facility] [place] Systolic (mm Hg) 2019-07-18 14:57:00 Rao rial [...] OF BENEFITS 2021-08-14 15:11:27 Doctor Unassigned, No [facility] Arthroplasty [facility] [place] Laminectomy [facility] [place] Encounters Start End Encounter Admission Attending Care Care Encounter Source Date/Time Date/Time Type Type Clinicians Facility Department ID 2021-06-08 Inpatient EL Eulogio, [facility] DAYS [id number] [facility] 10:30:00 [place] [id number] [facility] 2021-06-05 Inpatient EL Eulogio, [facility] DAYS [id number] [facility] 11:30:00 [place] [id number] [facility] 2021-05-19 Inpatient Eulogio, [facility] DAYS [id number] [facility] 07:30:00 [place] [id number] [facility] 2021-05-15 Inpatient EL Eulogio, [facility] DAYS [id number] [facility] 14:00:00 [place] [id number] [facility] 2022-08-20 2022-08-[address] [facility] [id number] [facility] 10:30:00 10:30:00 [id number] 2022-08-20 2022-08-[address] [facility] [id number] [facility] 10:30:00 10:30:00 [facility] 2021-08-31 2021-08-31 Outpatient EULOGIO, [facility] [id number] Amma 00:00:00 00:00:00 [place] [address] 2021-08-27 2021-08-27 Outpatient EULOGIO, [facility] [id number] [place] 00:00:00 00:00:00 [place] [address] 2021-08-24 2021-08-24 Outpatient EULOGIO, [facility] [id number] [place] 00:00:00 00:00:00 [place] 384 [facility] 2021-08-20 2021-08-20 Outpatient EULOGIO, [facility] [id number] [place] 00:00:00 00:00:00 [place] 342 [facility] 2021-08-19 2021-08-19 Outpatient EULOGIO, [facility] [id number] [place]ma 00:00:00 00:00:00 [place] 343 [facility] 2021-08-14 2021-08-14 Office Tony Das [facility] [id number] [facility] 10:12:38 10:59:24 Visit Cezar Lopez [id number] it y of [facility] [id number] [facility] [phone] [address] 2021-08-14 2021-08-14 Outpatient [address] TONY DAS [facility] [id number] [facility] 10:15:00 10:15:00 ity of [facility] 2021-08-14 2021-08-14 Orders Doctor [place] [id number] [facility] 00:00:00 00:00:00 Only Unassigned, LISA [id number] ity of [facility] [id number] [facility] [id number] [address] 2021-08-10 2021-08-10 Outpatient EULOGIO, [facility] [id number] [place]ma 00:00:00 00:00:00 [place] 230 [facility] 2021-08-06 2021-08-06 Outpatient EULOGIO, [facility] [id number] [place] 00:00:00 00:00:00 [place] 205 [facility] i 2021-07-30 2021-07-30 Outpatient EULOGIO, [facility] [id number] [place]ma 00:00:00 00:00:00 [place] 805 [facility] 2021-07-27 2021-07-27 Outpatient EULOGIO, [facility] [id number] [place]ma 00:00:00 00:00:00 [place] 774 [facility] 2021-07-23 2021-07-23 Outpatient EULOGIO, [facility] [id number] [place]ma 00:00:00 00:00:00 [place] 727 [facility] 2021-07-20 2021-07-20 Outpatient EULOGIO, [facility] [id number] [place] 00:00:00 00:00:00 [place] 774 [facility] i 2021-07-09 2021-07-09 Outpatient EULOGIO, [facility] [id number] [place]ma 00:00:00 00:00:00 [place] 643 [facility] i 2021-07-08 2021-07-08 Outpatient EULOGIO, [facility] [id number] [place]ma 00:00:00 00:00:00 [place] 592 [facility] 2021-07-02 2021-07-02 Outpatient EULOGIO, [facility] [id number] Amma 00:00:00 00:00:00 [place] 982 [facility] 2021-06-23 2021-06-23 Outpatient EULOGIO, [facility] [id number] [place] 00:00:00 00:00:00 [place] 244 [facility] 2021-06-09 2021-06-11 Inpatient RODNEY Patterson, HCACL MEDI.01 [id number] [facility] 16:03:00 15:30:00 Reji [id number] [facility] 2021-06-09 2021-06-09 [facility] [id number] [facility] 16:08:00 16:08:00 [id number] [facility] 2021-04-08 2021-04-09 Outpatient nullFlavo MNA [id number] [facility] 14:00:00 04:59:59 r Neurology 16 l Elvin Gay 2020-12-26 2020-12-28 Outside nullFlavo MNA [id number] [facility] 17:32:20 05:59:59 Medical r Neurology 00 l Records Elvin Gay 2020-12-22 2020-12-23 Outpatient nullFlavo MNA [id number] [facility] 20:30:00 05:59:59 r Neurology 15 l Elvin Gay 2020-12-04 2020-12-04 Ambulatory nullFlavo MNA [id number] [facility] 19:15:00 19:15:00 Pre-Reg r Neurology 14 l Elvin Rashidann 2020-09-30 2020-09-30 Outpatient EULOGIO, [facility] [id number] [place]ma 00:00:00 00:00:00 [place] Georgiana Robledo i 2020-07-31 2020-08-01 Outpatient nullFlavo MNA [id number] [facility] 18:15:00 04:59:59 r Neurology 13 l Harlan [place] 2020-07-29 2020-07-29 Ambulatory nullFlavo MNA [id number] [facility] 16:15:00 16:15:00 Pre-Reg r Neurology 12 l Har[facility] [place] 2020-06-06 2020-06-06 Ambulatory nullFlavo MNA [id number] [facility] 18:00:00 18:00:00 Pre-Reg r Neurology 11 l [facility] [place] 2020-03-12 2020-03-13 Outpatient nullFlavo MNA [id number] [facility] 18:45:00 04:59:59 r Neurology 09 l Harlan [place] 2020-01-22 2020-01-23 Outpatient nullFlavo MNA [id number] [facility] 17:45:00 05:59:59 r Neurology 10 l Harlan [place] 2020-01-11 2020-01-12 Outpatient nullFlavo MNA [id number] [facility] 20:15:00 05:59:59 r Neurology 08 l Harlan [place] 2020-01-11 2020-01-11 Ambulatory nullFlavo MNA [id number] [facility] 20:15:00 20:15:00 Pre-Reg r Neurology 07 l [facility] [place] 2019-12-06 2019-12-07 Outpatient nullFlavo MNA [id number] [facility] 22:00:00 05:59:59 r Neurology 06 l [facility] [place] 2019-12-05 2019-12-05 Ambulatory nullFlavo MNA [id number] [facility] 14:15:00 14:15:00 Pre-Reg r Neurology 05 l Har[facility] [place] 2019-11-16 2019-11-16 Ambulatory nullFlavo MNA [id number] [facility] 19:00:00 19:00:00 Pre-Reg r Neurology 03 l Harlan [place] 2019-11-09 2019-11-10 Outpatient nullFlavo MNA [id number] [facility] 17:30:00 05:59:59 r Neurology 04 l [facility] [place] 2019-09-19 2019-09-20 Outpatient nullFlavo MNA [id number] [facility] 18:00:00 04:59:59 r Neurology 02 l Elvin Gay 2019-08-23 2019-08-24 Outpatient nullFlavo MNA [id number] [facility] 18:30:00 04:59:59 r Neurology 01 l Elvin Gay 2019-07-18 2019-07-19 Outpatient nullFlavo MNA [id number] [facility] 14:15:00 04:59:59 r Neurology 00 l Elvin Gay Results Test Description Test Time Test Comments Results Result Comments Source INFECTION CONTROL PROFILE 2021-06-13 18:10:00 Test Item Value Reference Range Interpretation Comme nts HEPATITIS C RNA BY Negative Negative Negative: HCV RNA Not PCR-QUAL (test code = Detect edPerformed At: BN HCVRNAPCR) [facility] [id number] [facility], [place] [id number] ra Danielle SALINAS Ph:[phone] AG HEPATITIS B SURFACE NON REACTIVE INDEX NonReactive (test code = HBSAG) AB HIV 1 2 (test code NONREACTIVE INDEX NONREACTIVE = AXU37XG) HIV 1/2 RAPID SCREEN NONREACTIVE NONREACTIVE Critic al result called to (test code = RVD03WDZ) TED BROTHERS RN/Foreign ColonLAB.UN at 165 9 06/09/21Nmy arcos back resut and tech confir med it's correct? Y AG HIV1 P24 (test code NONREACTIVE NONREACTIVE = KZP8Y98) BASIC METABOLIC [id number] 07:47:00 Test Item Value Reference Range Interpretation [...] code = 9.0 mg/dL 8.0-10.5 N CA) [id number] 07:47:00 Test Item Value Reference Range Interpretation Comments MAGNESIUM (test code = MAG) 1.91 mg/dL 1.80-2.40 N CBC W/AUTO [id number] 07:13:00 Test Item Value Reference Range Interpretation [...] (test NO code = MDIFF) INFECTION CONTROL [id number] 17:05:00 Test Item Value Reference Range Interpretation Comments HEPATITIS C RNA BY PCR-QUAL (test code = HCVRNAPCR) AG HEPATITIS B NON REACTIVE INDEX NonReactive SURFACE (test code = HBSAG) AB HIV 1 2 (test NONREACTIVE INDEX NONREACTIVE code = PKK90IC) HIV 1/2 RAPID NONREACTIVE NONREACTIVE Critical resu lt SCREEN (test code called to KEHINDE = [id number]) ANGELA BROTHERS/Riya brewer G.LAB.UN at 165 9 06/09/21Nurse read back resut and tech confirmed it's correct? Y AG HIV1 P24 (test NONREACTIVE NONREACTIVE code = SUC2I87) INFECTION CONTROL [id number] 17:01:00 Test Item Value Reference Range Interpretation Comments HEPATITIS C RNA BY PCR-QUAL (test code = HCVRNAPCR) AG HEPATITIS B INDEX NonReactive SURFACE (test code = HBSAG) AB HIV 1 2 (test INDEX NONREACTIVE code = HBS56XU) HIV 1/2 RAPID SCREEN NONREACTIVE NONREACTIVE Critic al result (test code = called to TED Longoria [id number]) ANGELA BROTHERS/Riya brewer G.LAB.UN at 165 9 06/09/21Nurse r ead back resut and tech confirmed it's correct? Y AG HIV1 P24 (test NONREACTIVE NONREACTIVE code = MFL7M22) COVID 19 Asymptomatic IH [id number] 13:43:00 Test Item Value Reference Range Interpretation [...] vi josephine (antigen) in th e sample.This fernando t has not been FDA cleare d or approved; the t est hasbeen authori zed by FDA under an Em ergency Use Authorizati on(EUA) for use by labo ratories certified under the CLIA thatmeet the requirements to perform moderate, high or waivedcomplexit y tests. - XR CHEST 2 [id number] 13:06:00 [facility] 1965 Sex: F FAX: Dennis Graves MD [phone] [place]: St: PRE FAX: Beverly Cartagena MD [phone] FAX: Katherine [facility] 1965 Age/S: 55/F [address] [place] [address] Unit #: [id number] Loc: FLAVIO Rueda [address] Phys: Katherine Ma NP Acct: [id number] Dis Date: Status: PRE SDC PHONE #: [phone] Exam Date: 06/08/2021 1143 FAX #: [phone] Reason: PREOP EXAMS: CPT CODE: [id number] XR CHEST 2 V 32078 Clinical Indication: Preoperative evaluation. Comparison: 03/08/2019. Impression: Chest, 2 views. No consolidation, pleural effusion, or pneumothorax. Cardiac silhouette is of normal size. No acute osseous abnormality. Thoracic spinal stimulating device is in place. SL: [id number] at 1306 Reported and signed by: Brian Mendes M.D. CC: Dennis Chaves MD; Beverly Cartagena MD; Katherine Ma NP Technologist: RT Milly(Tasia) Trnscrd Date/Time/By: 06/08/2021 (1745) : By: [email or web address] Orig Print D/T: S: 06/08/2021 (4078) PAGE 1 Signed ReportBASIC METABOLIC [id number] 11:59:00 Test Item Value Reference Range Interpretation [...] 8.9 mg/dL 8.0-10.5 N CA) CBC W/AUTO [id number] 11:55:00 Test Item Value Reference Range Interpretation [...] code NO = MDIFF) AFB CULTURE + [id number] 12:03:00 Test Item Value Reference Range Interpretation Comments CULTURE (BEAKER) (test No acid-fast bacilli code = 1095) isolated in 42 days AFB SMEAR (BEAKER) No acid fast bacilli (test code = 994) seen FUNGUS CULTURE + [id number] 18:46:00 Test Item Value Reference Range Interpretation Comments CULTURE (BEAKER) A 1+ Jo-Ann albicans (test code = 1095) FUNGUS SMEAR No fungi seen (BEAKER) (test code = 1406) MISCELLANEOUS LAB [id number] 07:43:00 Test Item Value Reference Range Interpretation Comments SCAN RESULT (test code = 3555203) CBC W/PLT COUNT & AUTO [id number] 11:31:00 Test Item Value Reference Range Interpretation [...] PERCENT (BEAKER) (test code = 2801) POCT-GLUCOSE [id number] 08:15:00 Test Item Value Reference Range Interpretation Comments POC-GLUCOSE METER 87 mg/dL 70-110 : TESTED A T [facility] 6720 (BEAKER) (test code = LIV LEE [place], 1538) 68396: Buck Swamper/Techni theo ID = [id number] for GINNY PULIDO [id number] 08:08:00 Test Item Value Reference Range Interpretation Comments MAGNESIUM (BEAKER) 1.6 mg/dL 1.6-2.6 Specimen slightly (test code = 627) hemolyzed COMPREHENSIVE METABOLIC [id number] 08:08:00 Test Item Value Reference Range Interpretation [...] NOT APPLICABLE FOR DIALYSIS PATIEN TS. POCT-GLUCOSE [id number] 23:32:00 Test Item Value Reference Range Interpretation Comments POC-GLUCOSE METER 98 mg/dL 70-110 : TESTED A T [facility] 6720 (BEAKER) (test code = LIV MUNIZ, 1538) 35719: Buck Swamper/Techni theo ID = [id number] for PATEL TEJADA POCT-GLUCOSE [id number] 17:52:00 Test Item Value Reference Range Interpretation Comments POC-GLUCOSE METER 88 mg/dL 70-110 : TESTED A T [facility] 6720 (BEAKER) (test code = LIV Dozier [facility], 1538) 11224: Buck Swamper/Techni theo ID = [id number] for DOBB INS, ZAK POCT-GLUCOSE [id number] 11:53:00 Test Item Value Reference Range Interpretation Comments POC-GLUCOSE METER 161 mg/dL 70-110 H : TESTED A T [facility] 6720 (BEAKER) (test code = LIV Do[facility], 1538) [address]: Buck Swamper/Techni theo ID = [id number] for DO BBINS, ZAK BRONCHIAL CULTURE + GRAM [id number] 10:38:00 Test Item Value Reference Range Interpretation Comments CULTURE (BEAKER) (test See comment code = 1095) GRAM STAIN RESULT 2+ White blood cells (BEAKER) (test code = seen 1123) GRAM STAIN RESULT No organisms seen (BEAKER) (test code = 939650) 1+ YeastRAD, CHEST, 1 VIEW, NON [id number] 08:59:00Reason for exam:- >endotracheal intubationShould this be [...] Verified Date/Time: 10/14/2019 08:59:12 Reading Location: [address] Transitional Reading Room [id number] 08:38:00 Test Item Value Reference Range Interpretation Comments MAGNESIUM (BEAKER) 2.0 mg/dL 1.6-2.6 Specimen slightly (test code = 627) hemolyzed COMPREHENSIVE METABOLIC [id number] 08:38:00 Test Item Value Reference Range Interpretation [...] PATIEN TS. CBC W/PLT COUNT & AUTO [id number] 08:23:00 Test Item Value Reference Range Interpretation [...] PERCENT (BEAKER) (test code = 2801) POCT-GLUCOSE [id number] 07:07:00 Test Item Value Reference Range Interpretation Comments POC-GLUCOSE METER 84 mg/dL 70-110 : TESTED A T [facility] 6720 (BEAKER) (test code = [place], 1538) [address]: Buck Swamper/Techni theo ID = [id number] for Will iams, Kamille BLOOD GAS, [id number] 04:38:00 Test Item Value Reference Range Interpretation [...] (test code = 1819) 36.0 % POCT-GLUCOSE [id number] 01:19:00 Test Item Value Reference Range Interpretation Comments POC-GLUCOSE METER 152 mg/dL 70-110 H : TESTED A T [facility] 6720 (BEAKER) (test code = [facility], 153) 09166: Buck Swamper/Techni theo ID = [id number] for Kamille Garcia BLOOD [id number] 19:01:00 Test Item Value Reference Range Interpretation Comments CULTURE (BEAKER) (test No growth in 5 days code = 1095) POCT-GLUCOSE [id number] 18:11:00 Test Item Value Reference Range Interpretation Comments POC-GLUCOSE METER 82 mg/dL 70-110 : TESTED A T [facility] 6720 (BEAKER) (test code = [facility], 153) 089[address]: Buck Swamper/Techni theo ID = [id number] for DOBB INS, ZAK POCT-GLUCOSE [id number] 12:34:00 Test Item Value Reference Range Interpretation Comments POC-GLUCOSE METER 87 mg/dL 70-110 : TESTED A T [facility] 6720 (BEAKER) (test code = [facility], 153) 35111: Buck Swamper/Techni theo ID = [id number] for SAND ERS, GIDEON CBC W/PLT COUNT & AUTO [id number] 09:13:00 Test Item Value Reference Range Interpretation [...] 0-1 PERCENT (BEAKER) (test code = 2801) [id number] 06:55:00 Test Item Value Reference Range Interpretation Comments MAGNESIUM (BEAKER) (test code = 1.8 mg/dL 1.6-2.6 627) COMPREHENSIVE METABOLIC [id number] 06:55:00 Test Item Value Reference Range Interpretation [...] APPLICABLE FOR DIALYSIS PATIEN TS. BLOOD GAS, [id number] 06:41:00 Test Item Value Reference Range Interpretation [...] 28.0 % RAD, CHEST, 1 VIEW, NON [id number] 04:40:00Reason for exam:->endotracheal intubationShould this be performed [...] changes of the left clavicle.. Signed: [facility] Verified Date/Time: 10/13/2019 04:40:52 POCT-GLUCOSE METER 2019-10-13 00:24:00 Test Item Value Reference Range Interpretation Comments POC-GLUCOSE METER 107 mg/dL 70-110 : TESTED A T [facility] 6720 (BEAKER) (test code = [place], 1538) [address]: Buck Swamper/Techni theo ID = [id number] for Dianna Wetzel RAD, MANDIBLE, MIN 4 [id number] 17:22:00Reason for exam:->Liver Transplant EvaluationShould this be [...] [place] Verified Date/Time: 10/12/2019 17:22:01 Reading Location: [facility] Mammo Reading Room POCT-GLUCOSE [id number] 12:42:00 Test Item Value Reference Range Interpretation Comments POC-GLUCOSE METER 119 mg/dL 70-110 H : TESTED A T [facility] 6720 (BEAKER) (test code = [facility], 1538) 80601: Buck Swamper/Techni theo ID = [id number] for Tyler Sanchez RAD, CHEST, 1 VIEW, NON [id number] 09:14:00Reason for exam:->endotracheal intubationShould this be performed [...] MDReport Verified Date/Time: 10/12/2019 09:14:48 Reading Location: [facility] Radiology Reading Room MAGNESIUM 2019-10-12 04:39:00 Test Item Value Reference Range Interpretation Comments MAGNESIUM (BEAKER) (test code = 1.8 mg/dL 1.6-2.6 627) COMPREHENSIVE METABOLIC [id number] 04:39:00 Test Item Value Reference Range Interpretation [...] PATIEN TS. CBC W/PLT COUNT & AUTO [id number] 04:18:00 Test Item Value Reference Range Interpretation [...] (BEAKER) (test code = 2801) BLOOD GAS, [id number] 04:17:00 Test Item Value Reference Range Interpretation [...] (test code = 1819) 30.0 % SPIN/CONCENTRATION [id number] 01:15:00 Test Item Value Reference Range Interpretation Comments CONCENTRATION CHARGED (BEAKER) (test Done code = 2657) BODY FLUID CELL COUNT WITH [id number] 18:00:00 Test Item Value Reference Range Interpretation [...] (test code = 2873) EEG AWAKE AND [id number] 17:00:00Reason for exam:->acute encephalopathyShould this be performed at the bedside?->YesDate(s) of EE10/11/2019 DATE OF REPORT: 10/11/2019ACC: [id number] Number: [id number] Location: Inpatient ICUStart time: 10/11/2019 16:09Stop time: 10/11/2019 16:31ICD-10: R41.82 CPT Code: 16547 HISTORY: 54 y.o. female with hypertension, chronic [...] of this report.Jermaine Walton MD, PhDAttending NeurophysiologistCHI [place], [place] SPUTUM CULTURE + GRAM [id number] 15:43:00 Test Item Value Reference Range Interpretation Comments CULTURE (BEAKER) 4+ Normal respiratory (test code = 1095) candy present GRAM STAIN RESULT 2+ White blood cells (BEAKER) (test code = seen 1123) GRAM STAIN RESULT 0-5 epithelial cells (BEAKER) (test code = 96627) GRAM STAIN RESULT 1+ gram positive rods (BEAKER) (test code = 25722) GRAM STAIN RESULT <1+ yeast (BEAKER) (test code = 064171) MISCELLANEOUS LAB [id number] 08:34:00 Test Item Value Reference Range Interpretation Comments SCAN RESULT (test code = 9206391) RAD, CHEST, 1 VIEW, NON [id number] 07:51:00Reason for exam:->endotracheal intubationShould this be performed [...] MDReport Verified Date/Time: 10/11/2019 07:51:10 Reading Location: [facility] Radiology Reading Room BLOOD [id number] 07:00:00 Test Item Value Reference Range Interpretation Comments CULTURE (BEAKER) (test No growth in 5 days code = 1095) BLOOD [id number] 07:00:00 Test Item Value Reference Range Interpretation Comments CULTURE (BEAKER) (test No growth in 5 days code = 1095) POCT-GLUCOSE [id number] 05:51:00 Test Item Value Reference Range Interpretation Comments POC-GLUCOSE METER 103 mg/dL 70-110 : TESTED A T [facility] 6720 (BEAKER) (test code = [facility], 1538) 74723: Buck Swamper/Techni theo ID = [id number] for SHARI BAJWA BLOOD GAS, [id number] 04:55:00 Test Item Value Reference Range Interpretation [...] (BEAKER) (test code = 1819) 40.0 % [id number] 04:46:00 Test Item Value Reference Range Interpretation Comments MAGNESIUM (BEAKER) (test code = 2.2 mg/dL 1.6-2.6 627) COMPREHENSIVE METABOLIC [id number] 04:46:00 Test Item Value Reference Range Interpretation [...] PATIEN TS. CBC W/PLT COUNT & AUTO [id number] 04:11:00 Test Item Value Reference Range Interpretation [...] PERCENT (BEAKER) (test code = 2801) POCT-GLUCOSE [id number] 23:55:00 Test Item Value Reference Range Interpretation Comments POC-GLUCOSE METER 118 mg/dL 70-110 H : TESTED A T [facility] 6720 (BEAKER) (test code = [place], 1538) [address]: Buck Swamper/Techni theo ID = [id number] for SHARI BAJWA POCT-GLUCOSE [id number] 17:40:00 Test Item Value Reference Range Interpretation Comments POC-GLUCOSE METER 142 mg/dL 70-110 H : TESTED A T [facility] 6720 (JASON) (test code = [facility], 1538) 20606: Buck Swamper/Techni theo ID = [id number] for Karely Bautista POCT-GLUCOSE [id number] 12:30:00 Test Item Value Reference Range Interpretation Comments POC-GLUCOSE METER 114 mg/dL 70-110 H : TESTED A T [facility] 6720 (BEDIAN) (test code = [facility], 1538) 30493: Buck Swamper/Techni theo ID = [id number] for Karely Bautista HIV-1 PCR, [id number] 11:07:00 Test Item Value Reference Range Interpretation Comments HIV-1 RESULT HIV RNA not detected HIV RNA not detected COMPONENT (JASON) (test code = 2703) This test uses a Real-Time Polymerase Chain Reaction (RT-PCR) methodology to detect a highly conserved region of the HIV-1 gag gene and was performed using the CHRISTINA AmpliPrep/CHRISTINA TaqMan HIV-1 test kit version 2.0 ([employer]Reportable range for this assay is 20 - 10,000,000 copies per mL (1.3 - 7.0 Log copies/mL).[id number] 08:14:00 Test Item Value Reference Range Interpretation Comments T3 TOTAL (JASON) (test code = 656) 36 ng/dL 48-159 L RAD, CHEST, 1 VIEW, NON [id number] 07:15:00Reason for exam:->endotracheal intubationShould this be performed [...] MDReport Verified Date/Time: 10/10/2019 07:15:28 Reading Location: [facility] Radiology Reading Room POCT- GLUCOSE [id number] 06:26:00 Test Item Value Reference Range Interpretation Comments POC-GLUCOSE METER 103 mg/dL 70-110 : TESTED A T [facility] 6720 (BEAKER) (test code = [place], 1538) [address]: Buck Swamper/Techni theo ID = [id number] for SUSIE TRUONG [id number] 05:32:00 Test Item Value Reference Range Interpretation [...] within 95-100% range.CBC W/PLT COUNT & AUTO [id number] 05:23:00 Test Item Value Reference Range Interpretation [...] 0-1 PERCENT (BEAKER) (test code = 2801) [id number] 05:10:00 Test Item Value Reference Range Interpretation [...] INR is2.5-3.5 for patients wiht mechanical heart valves.[id number] 05:10:00 Test Item Value Reference Range Interpretation Comments PHOSPHORUS (BEAKER) (test code = 3.3 mg/dL 2.3-4.7 604) [id number] 05:10:00 Test Item Value Reference Range Interpretation Comments MAGNESIUM (BEAKER) (test code = 2.3 mg/dL 1.6-2.6 627) COMPREHENSIVE METABOLIC [id number] 05:10:00 Test Item Value Reference Range Interpretation [...] S NOT APPLICABLE FOR DIALYSIS PATIEN TS. [id number] 05:08:00 Test Item Value Reference Range Interpretation Comments FIBRINOGEN LEVEL (BEAKER) (test 275 mg/dl 225-434 code = 658) PROTHROMBIN [id number] 05:07:00 Test Item Value Reference Range Interpretation [...] is2.5-3.5 for patients wiht mechanical heart valves.CALCIUM, [id number] 04:59:00 Test Item Value Reference Range Interpretation Comments CALCIUM IONIZED (BEAKER) (test 1.20 mmol/L 1.12-1.27 code = 698) PH, BLOOD (BEAKER) (test code = 7.37 1810) BLOOD GAS, [id number] 04:55:00 Test Item Value Reference Range Interpretation [...] (test code = 1819) 40.0 % POCT-GLUCOSE [id number] 00:46:00 Test Item Value Reference Range Interpretation Comments POC-GLUCOSE METER 90 mg/dL 70-110 : TESTED A T [facility] 6720 (BEAKER) (test code = [place], 1538) 560[address]: Buck Swamper/Techni theo ID = [id number] for MATH EW, SUSIE MRSA [id number] 19:33:00 Test Item Value Reference Range Interpretation Comments CULTURE (BEAKER) (test code No MRSA isolated = 1095) PROTHROMBIN TIME/[id number] 18:00:00 Test Item Value Reference Range Interpretation [...] INR is2.5-3.5 for patients wiht mechanical heart valves.PT/[id number] 18:00:00 Test Item Value Reference Range Interpretation [...] INR is2.5-3.5 for patients wiht mechanical heart valves.BASIC METABOLIC [id number] 17:55:00 Test Item Value Reference Range Interpretation Comments SODIUM (BEAKER) 142 meq/L 136-145 (test code = 381) POTASSIUM (BEAKER) 3.8 meq/L 3.5-5.1 (test code = 379) CHLORIDE (BEAKER) 112 meq/L 98-107 H (test code = 382) CO2 (BEAKER) (test 23 meq/L code = 355) BLOOD UREA NITROGEN 23 [...] S NOT APPLICABLE FOR DIALYSIS PATIEN TS. [id number] 17:55:00 Test Item Value Reference Range Interpretation Comments MAGNESIUM (BEAKER) (test code = 1.9 mg/dL 1.6-2.6 627) CYTOMEGALOVIRUS ANTIBODY, [id number] 16:41:00 Test Item Value Reference Range Interpretation Comments CYTOMEGALOVIRUS, IGG (BEAKER) Negative Negative, Equivocal (test code = 3429) CMV IgG Result Interpretation: </= 0.8 Al Negative 0.9-1.0 Al Equivocal >/=1.1 Al PositiveCYTOMEGALOVIRUS ANTIBODY, [id number] 16:41:00 Test Item Value Reference Range Interpretation Comments CYTOMEGALOVIRUS IGM ANTIBODY Negative Negative, Equivocal (BEAKER) (test code = 3437) CMV IgM Result Interpretation: </= 0.8 Al Negative 0.9-1.0 Al Equivocal >/= 1.1 Al PositiveEBV ANTIBODY, [id number] 16:41:00 Test Item Value Reference Range Interpretation [...] 107 mg/dL 70-110 : TESTED A T [facility] 6720 (BEAKER) (test code = [place], 1538) [address]: Buck Swamper/Techni theo ID = [id number] for Karely Bautista CT, BRAIN, WITHOUT [id number] 14:07:00Patient with decerebrate posturing, r/o herniationFINAL REPORT [...] Date/Time: 10/09/2019 14:07:57 SPUTUM CULTURE + GRAM [id number] 12:59:00 Test Item Value Reference Range Interpretation Comments CULTURE (BEAKER) See comment (test code = 1095) GRAM STAIN RESULT 1+ White blood cells (BEAKER) (test code = seen 1123) GRAM STAIN RESULT 0-5 epithelial cells (BEAKER) (test code = 620665) GRAM STAIN RESULT No organisms seen (BEAKER) (test code = 830811) 2+ YeastNo Normal respiratory candy presentPOCT-GLUCOSE [id number] 12:22:00 Test Item Value Reference Range Interpretation Comments POC-GLUCOSE METER 168 mg/dL 70-110 H : TESTED A T [facility] 6720 (BEAKER) (test code = [place], 1538) 44548: Buck Swamper/Techni theo ID = [id number] for Karely Bautista POCT-GLUCOSE [id number] 10:04:00 Test Item Value Reference Range Interpretation Comments POC-GLUCOSE METER 101 mg/dL 70-110 : TESTED A T [facility] 6720 (BEAKER) (test code = [facility], 1538) 16452: Buck Swamper/Techni theo ID = [id number] for Karely Bautista BILIRUBIN, [id number] 09:44:00 Test Item Value Reference Range Interpretation Comments BILIRUBIN DIRECT (BEAKER) (test 1.5 mg/dL 0.1-0.5 H code = 706) [id number] 07:19:00 Test Item Value Reference Range Interpretation Comments PROCALCITONIN (BEAKER) (test code 1.48 ng/mL <0.05 H = 3036) SEPSIS RISK (ng/mL)Low: 0.05-0.50Intermediate: 0.51-2.00High: >=2.99L-[id number] 05:26:00 Test Item Value Reference Range Interpretation [...] within 95-100% range.RAD, CHEST, 1 VIEW, NON [id number] 05:16:00Reason for exam:->endotracheal intubationShould this be performed [...] Cummins MDReport Verified Date/Time: 10/09/2019 05:16:08 CALCIUM, [id number] 05:05:00 Test Item Value Reference Range Interpretation Comments CALCIUM IONIZED (BEAKER) (test 1.14 mmol/L 1.12-1.27 code = 698) PH, BLOOD (BEAKER) (test code = 7.49 1810) BLOOD GAS, [id number] 05:04:00 Test Item Value Reference Range Interpretation [...] 40.0 % CBC W/PLT COUNT & AUTO [id number] 04:51:00 Test Item Value Reference Range Interpretation [...] (BEAKER) (test code = 2801) VANCOMYCIN LEVEL, [id number] 04:26:00 Test Item Value Reference Range Interpretation Comments VANCOMYCIN TROUGH (BEAKER) (test 7.0 ug/mL 10.0-20.0 L code = 522) [id number] 04:21:00 Test Item Value Reference Range Interpretation Comments PHOSPHORUS (BEAKER) (test code = 3.2 mg/dL 2.3-4.7 604) [id number] 04:21:00 Test Item Value Reference Range Interpretation Comments MAGNESIUM (BEAKER) (test code = 1.9 mg/dL 1.6-2.6 627) COMPREHENSIVE METABOLIC [id number] 04:21:00 Test Item Value Reference Range Interpretation [...] S NOT APPLICABLE FOR DIALYSIS PATIEN TS. [id number] 04:19:00 Test Item Value Reference Range Interpretation Comments FIBRINOGEN LEVEL (BEAKER) (test 267 mg/dl 225-434 code = 658) [id number] 04:14:00 Test Item Value Reference Range Interpretation [...] is2.5-3.5 for patients wiht mechanical heart valves.PROTHROMBIN TIME/[id number] 04:13:00 Test Item Value Reference Range Interpretation [...] is2.5-3.5 for patients wiht mechanical heart valves.POCT-GLUCOSE [id number] 01:04:00 Test Item Value Reference Range Interpretation Comments POC-GLUCOSE METER 143 mg/dL 70-110 H : TESTED A T [facility] 6720 (BEAKER) (test code = [employer] [facility], 1538) 16262: Buck Swamper/Techni theo ID = [id number] for BONY BRISCOE, SUSIE POCT-GLUCOSE [id number] 20:20:00 Test Item Value Reference Range Interpretation Comments POC-GLUCOSE METER 145 mg/dL 70-110 H : TESTED A T [facility] 6720 (BEAKER) (test code = [facility], 1538) 95177: Buck Swamper/Techni theo ID = [id number] for BONY DASW, SUSIE POCT-GLUCOSE [id number] 16:43:00 Test Item Value Reference Range Interpretation Comments POC-GLUCOSE METER 164 mg/dL 70-110 H : TESTED [place] [facility] 6720 (SHANNONAKER) (test code = [place], 1538) 22094: Buck Swamper/Techni theo ID = [id number] for Karely Bautista CMV PCR, [id number] 15:47:00 Test Item Value Reference Range Interpretation [...] its performance characteristics determined by the [facility] Path ology Department, Section of Molecular Pathology. It has not been cleared or approved by the U.S. Food and Drug Administration (FDA), since FDA approval is not required for clinical use of the test. Validation was done as required by The Clinical Laboratory Improvement Amendments of 1988.[id number] 15:29:00 Test Item Value Reference Range Interpretation Comments PHOSPHORUS (BEAKER) (test code = 3.5 mg/dL 2.3-4.7 604) [id number] 15:29:00 Test Item Value Reference Range Interpretation Comments MAGNESIUM (BEAKER) (test code = 2.1 mg/dL 1.6-2.6 627) [id number] 15:01:00 Test Item Value Reference Range Interpretation Comments PHOSPHORUS (BEAKER) (test code = 2.1 mg/dL 2.3-4.7 L 604) [id number] 15:01:00 Test Item Value Reference Range Interpretation Comments MAGNESIUM (BEAKER) (test code = 2.0 mg/dL 1.6-2.6 627) BASIC METABOLIC [id number] 15:01:00 Test Item Value Reference Range Interpretation [...] APPLICABLE FOR DIALYSIS PATIEN TS. Specimen slightly ictericPT/[id number] 14:53:00 Test Item Value Reference Range Interpretation [...] INR is2.5-3.5 for patients wiht mechanical heart valves.[id number] 14:38:00 Test Item Value Reference Range Interpretation Comments AMMONIA (BEAKER) (test code = 348) 34 mol/L 18-72 RUBELLA ANTIBODY, [id number] 14:20:00 Test Item Value Reference Range Interpretation Comments RUBELLA IGG QUANTITATION (BEAKER) 1.0 IU/mL <8.0 (test code = 572) Rubella IgG Result Interpretation: </= 7.0 IU/mL Negative - Presumed non- immune 8.0 - 9.9 IU/mL Equivocal >= 10.0 IU/mL Positive - Presumed immune VARICELLA ZOSTER ANTIBODY, [id number] 13:49:00 Test Item Value Reference Range Interpretation Comments VARICELLA ZOSTER IGG (AL) (BEAKER) 4.8 (test code = 3197) VARICELLA ZOSTER RESULT INTERPRETATIONS: <=0.8 Al Nonreactive: Presumed non-immune to VZV 0.9-1.0 Al Equivocal >=1.1 Al Reactive: Presumed immune to VZVCRYPTOCOCCAL [id number] 13:33:00 Test Item Value Reference Range Interpretation Comments CRYPTOCOCCAL ANTIGEN, SERUM Negative Negative, Interference (BEAKER) (test code = 1828) FACTOR 5 ACTIVITY (BLEEDING RISK)2019-10-08 13:03:00 Test Item Value Reference Range Interpretation Comments FACTOR V ACTIVITY (BEAKER) (test code = 9.0 % 60.0-150.0 L 665) CBC W/PLT COUNT & AUTO [id number] 12:13:00 Test Item Value Reference Range Interpretation [...] PERCENT (BEAKER) (test code = 2801) POCT-GLUCOSE [id number] 11:22:00 Test Item Value Reference Range Interpretation Comments POC-GLUCOSE METER 184 mg/dL 70-110 H : TESTED [place] [facility] 6720 (BEAKER) (test code = [place], 1538) [address]: Buck Swamper/Techni theo ID = [id number] for Karely Bautista ANTI-NUCLEAR ANTIBODY (JOSE ARMANDO)2019-10-08 10:44:00 Test Item Value Reference Range Interpretation Comments ANTI-NUCLEAR ANTIBODY (JOSE ARMANDO) (BEAKER) Negative Negative (test code = 418) Test performed by IFA method.Test performed by IFA method.[id number] 09:26:00 Test Item Value Reference Range Interpretation Comments PHOSPHORUS (BEAKER) (test code = 2.9 mg/dL 2.3-4.7 604) [id number] 09:26:00 Test Item Value Reference Range Interpretation Comments MAGNESIUM (BEAKER) (test code = 2.0 mg/dL 1.6-2.6 627) BASIC METABOLIC [id number] 09:26:00 Test Item Value Reference Range Interpretation [...] Specimen slightly ictericRAD, CHEST, 1 VIEW, NON [id number] 09:14:00Reason for exam:->endotracheal intubationShould this be performed at the bedside?->YesFINAL REPORT RAD, CHEST, 1 VIEW, NON DEPT INDICATION: endotracheal intubationCOMPARISON: Prior day's exam FINDINGS: Portable frontal view of the chest. IMPRESSION: Support Lines: Stable. Lungs and pleura: Improved interstitial congestion. No consolidation or effusion. No pneumothorax.Heart and mediastinum: Stable contours. Additional findings: None. Signed: JR Gramajo Robert MDRmid[facility] Verified Date/Time: 10/08/2019 09:14:39 Reading Location: [facility] Radiology Reading Room D-DIMER 2019-10-08 06:25:00 Test [...] of thrombosis is within 95-100% range. PROTHROMBIN TIME/[id number] 05:32:00 Test Item Value Reference Range Interpretation [...] INR is2.5-3.5 for patients wiht mechanical heart valves.[id number] 05:32:00 Test Item Value Reference Range Interpretation Comments FIBRINOGEN LEVEL (BEAKER) (test 200 mg/dl 225-434 L code = 658) [id number] 05:32:00 Test Item Value Reference Range Interpretation [...] Specimen slightly ictericCBC W/PLT COUNT & AUTO [id number] 05:24:00 Test Item Value Reference Range Interpretation [...] (BEAKER) (test code = 2801) LACTIC ACID, [id number] 05:16:00 Test Item Value Reference Range Interpretation Comments LACTATE BLOOD VENOUS (2) (BEAKER) 1.8 mmol/L 0.5-2.2 (test code = 2872) [id number] 23:51:00 Test Item Value Reference Range Interpretation Comments PHOSPHORUS (BEAKER) (test code = 4.4 mg/dL 2.3-4.7 604) [id number] 23:51:00 Test Item Value Reference Range Interpretation Comments MAGNESIUM (BEAKER) (test code = 2.2 mg/dL 1.6-2.6 627) BASIC METABOLIC [id number] 23:51:00 Test Item Value Reference Range Interpretation [...] DIALYSIS PATIEN TS. Specimen slightly ictericBLOOD GAS, [id number] 23:37:00 Test Item Value Reference Range Interpretation [...] 50.0 % CBC W/PLT COUNT & AUTO [id number] 20:12:00 Test Item Value Reference Range Interpretation [...] PERCENT (BEAKER) (test code = 2801) POCT-GLUCOSE [id number] 20:01:00 Test Item Value Reference Range Interpretation Comments POC-GLUCOSE METER 143 mg/dL 70-110 H : TESTED A T [facility] 6720 (BEAKER) (test code = [facility], 1538) 92627: Buck Swamper/Techni theo ID = [id number] for Liban Arnett BLOOD GAS, [id number] 19:54:00 Test Item Value Reference Range Interpretation [...] (test code = 1819) 24.0 % POCT-GLUCOSE [id number] 19:01:00 Test Item Value Reference Range Interpretation Comments POC-GLUCOSE METER 155 mg/dL 70-110 H : TESTED A T [facility] 6720 (BEAKER) (test code = [facility], 1538) [id number]: Buck Swamper/Techni theo ID = [id number] for GIDEON NUNEZ HEPATOBILIARY [id number] 18:38:00Please do at bedside. Thank you.FINAL REPORT PROCEDURE: HEPATOBILIARY SCAN CPT CODE: 87076 INDICATION: abdominal pain PROTOCOL: 5.3 mCi of [...] JEFFERY ALARCON MD on 10/07/2019 06:38 PMPOCT-GLUCOSE [id number] 16:52:00 Test Item Value Reference Range Interpretation Comments POC-GLUCOSE METER 166 mg/dL 70-110 H : TESTED A T [facility] 6720 (BEAKER) (test code = [facility], 1538) 33933: Buck Swamper/Techni theo ID = [id number] for GIDEON NUNEZ [id number] 16:40:00 Test Item Value Reference Range Interpretation [...] INR is2.5-3.5 for patients wiht mechanical heart valves.[id number] 16:40:00 Test Item Value Reference Range Interpretation Comments FIBRINOGEN LEVEL (BEAKER) (test 156 mg/dl 225-434 L code = 658) PROTHROMBIN [id number] 16:39:00 Test Item Value Reference Range Interpretation [...] INR is2.5-3.5 for patients wiht mechanical heart valves.[id number] 16:36:00 Test Item Value Reference Range Interpretation Comments PHOSPHORUS (BEAKER) (test code = 1.8 mg/dL 2.3-4.7 L 604) [id number] 16:36:00 Test Item Value Reference Range Interpretation Comments MAGNESIUM (BEAKER) (test code = 2.5 mg/dL 1.6-2.6 627) BASIC METABOLIC [id number] 16:36:00 Test Item Value Reference Range Interpretation [...] APPLICABLE FOR DIALYSIS PATIEN TS. BLOOD GAS, [id number] 16:22:00 Test Item Value Reference Range Interpretation [...] 25.0 % CBC W/PLT COUNT & AUTO [id number] 12:44:00 Test Item Value Reference Range Interpretation [...] PERCENT (BEAKER) (test code = 2801) POCT-GLUCOSE [id number] 12:23:00 Test Item Value Reference Range Interpretation Comments POC-GLUCOSE METER 145 mg/dL 70-110 H : TESTED A T [facility] 6720 (BEAKER) (test code = [place], 1538) [address]: Buck Swamper/Techni theo ID = [id number] for GIDEON NUNEZ [id number] 12:06:00 Test Item Value Reference Range Interpretation Comments T4 TOTAL (BEAKER) (test code = 895) 4.6 ug/dL 4.9-11.7 L [id number] 10:00:00 Test Item Value Reference Range Interpretation Comments PHOSPHORUS (BEAKER) (test code = 2.8 mg/dL 2.3-4.7 604) [id number] 10:00:00 Test Item Value Reference Range Interpretation Comments MAGNESIUM (BEAKER) (test code = 2.0 mg/dL 1.6-2.6 627) BASIC METABOLIC [id number] 10:00:00 Test Item Value Reference Range Interpretation [...] NOT APPLICABLE FOR DIALYSIS PATIEN TS. POCT-GLUCOSE [id number] 08:15:00 Test Item Value Reference Range Interpretation Comments POC-GLUCOSE METER 174 mg/dL 70-110 H : TESTED A T [facility] 6720 (BEAKER) (test code = [place], 1538) [address]: Buck Swamper/Techni theo ID = [id number] for SA NDERS, GIDEON RAD, CHEST, 1 VIEW, NON [id number] 05:39:00Reason for exam:- >intubatedShould this be performed [...] MDReport Verified Date/Time: 10/07/2019 05:39:22 BLOOD GAS, [id number] 05:29:00 Test Item Value Reference Range Interpretation [...] (BEAKER) (test code = 1819) 40.0 % [id number] 05:07:00 Test Item Value Reference Range Interpretation [...] thrombosis is within 95-100% range. COMPREHENSIVE METABOLIC [id number] 04:59:00 Test Item Value Reference Range Interpretation [...] PATIEN TS. CBC W/PLT COUNT & AUTO [id number] 04:32:00 Test Item Value Reference Range Interpretation [...] H PERCENT (BEAKER) (test code = 2801) [id number] 04:30:00 Test Item Value Reference Range Interpretation Comments PHOSPHORUS (BEAKER) (test code = 3.1 mg/dL 2.3-4.7 604) [id number] 04:30:00 Test Item Value Reference Range Interpretation Comments MAGNESIUM (BEAKER) (test code = 1.8 mg/dL 1.6-2.6 627) POCT-GLUCOSE [id number] 04:25:00 Test Item Value Reference Range Interpretation Comments POC-GLUCOSE METER 126 mg/dL 70-110 H : TESTED A T [facility] 6720 (BEAKER) (test code = [place], 1538) [address]: Buck Swamper/Techni theo ID = [id number] for Liban Arnett [id number] 04:18:00 Test Item Value Reference Range Interpretation Comments FIBRINOGEN LEVEL (BEAKER) (test 173 mg/dl 225-434 L code = 658) [id number] 04:14:00 Test Item Value Reference Range Interpretation [...] for patients wiht mechanical heart valves.LACTIC ACID, [id number] 04:13:00 Test Item Value Reference Range Interpretation Comments LACTATE BLOOD VENOUS (2) (BEAKER) 1.2 mmol/L 0.5-2.2 (test code = 2872) POCT-GLUCOSE [id number] 01:33:00 Test Item Value Reference Range Interpretation Comments POC-GLUCOSE METER 103 mg/dL 70-110 : TESTED A T [facility] 6720 (BEAKER) (test code = [facility], 1538) [address]: Buck Swamper/Techni theo ID = [id number] for GISELE CUETO HEMOGLOBIN AND [id number] 00:27:00 Test Item Value Reference Range Interpretation Comments HEMOGLOBIN (BEAKER) (test code = 8.6 GM/DL 11.2-15.7 L 410) HEMATOCRIT (BEAKER) (test code = 26.2 % 34.1-44.9 L 411) POCT-GLUCOSE [id number] 22:58:00 Test Item Value Reference Range Interpretation Comments POC-GLUCOSE METER 146 mg/dL 70-110 H : TESTED A T [facility] 6720 (BEAKER) (test code = [employer] [facility], 1538) [address]: Buck Swamper/Techni theo ID = [id number] for GISELE CUETO RAD, CHEST, 1 VIEW, NON [id number] 21:37:00Reason for exam:->line placement, right IJShould this [...] APPLICABLE FOR DIALYSIS PATIEN TS. PROTEIN, RANDOM [id number] 19:50:00 Test Item Value Reference Range Interpretation Comments PROTEIN, URINE (BEAKER) (test code = 83 mg/dL 0-14 H 1569) CREATININE, RANDOM [id number] 19:28:00 Test Item Value Reference Range Interpretation Comments CREATININE URINE (BEAKER) (test 37.6 mg/dL code = 375) Reference Range: No [id number] 19:00:00 Test Item Value Reference Range Interpretation Comments MAGNESIUM (BEAKER) 2.0 mg/dL 1.6-2.6 Specimen slightly (test code = 627) hemolyzed [id number] 19:00:00 Test Item Value Reference Range Interpretation [...] 0-0 (test code = 413) LACTIC ACID, [id number] 18:55:00 Test Item Value Reference Range Interpretation Comments LACTATE BLOOD VENOUS 1.9 mmol/L 0.5-2.2 Specime n slightly (2) (BEAKER) (test hemolyzed code = 2872) VITAMIN B12 AND [id number] 18:36:00 Test Item Value Reference Range Interpretation Comments VITAMIN B12 (BEAKER) (test code = > pg/mL 213-816 H 774) FOLATE (BEAKER) (test code = 362) 17.3 ng/mL >=7.0 BLOOD GAS, [id number] 18:29:00 Test Item Value Reference Range Interpretation [...] code = 1819) 40.0 % BASIC METABOLIC [id number] 17:47:00 Test Item Value Reference Range Interpretation [...] NOT APPLICABLE FOR DIALYSIS PATIEN TS. POCT-GLUCOSE [id number] 17:39:00 Test Item Value Reference Range Interpretation Comments POC-GLUCOSE METER 188 mg/dL 70-110 H : TESTED A T [facility] 6720 (BEAKER) (test code = [place], 1538) [address]: Buck Swamper/Techni theo ID = [id number] for SA NDERS, GIDEON LIPID [id number] 17:28:00 Test Item Value Reference Range Interpretation [...] Borderline 130-159 High 160-189 Very High >=190URIC [id number] 17:28:00 Test Item Value Reference Range Interpretation Comments URIC ACID (BEAKER) (test code = 7.3 mg/dL 2.6-7.2 H 773) HEMOGLOBIN [id number] 16:13:00 Test Item Value Reference Range Interpretation Comments HEMOGLOBIN A1C (BEAKER) (test code = 6.0 % 4.3-6.1 368) HEPATITIS A ANTIBODY, [id number] 16:13:00 Test Item Value Reference Range Interpretation Comments HEPATITIS A IGG ANTIBODY (BEAKER) Reactive Nonreactive A (test code = 2797) CARCINOEMBRYONIC ANTIGEN (CEA)2019-10-06 16:08:00 Test Item Value Reference Range Interpretation Comments CARCINOEMBRYONIC ANTIGEN (BEAKER) 23.1 ng/mL 0.0-5.0 H (test code = 685) VITAMIN D, [id number] 16:08:00 Test Item Value Reference Range Interpretation Comments VITAMIN D 25-OH (BEAKER) (test 10.1 ng/mL 6.6-49.9 code = 2764) Effective 09/07/2017: Reference Range ChangeNew: 6.6-49.9 ng/mL Previous: 13.0-47.8 ng/mLRecommended Vitamin D Target Range: 30.0-40.0 ng/mLTRANSFERRIN 2019-10-06 15:52:00 Test Item Value Reference Range Interpretation Comments TRANSFERRIN (BEAKER) (test code = 218 mg/dL 174-382 541) [id number] 15:09:00 Test Item Value Reference Range Interpretation Comments PHOSPHORUS (JASON) (test code = 1.7 mg/dL 2.3-4.7 L 604) U/S, ABDOMINAL, WITH [id number] 15:01:00Reason for exam:->acute liver injury, ? cholecystitis, [...] MDReport Verified Date/Time: 10/06/2019 15:01:21 Reading Location: [facility] C013X Ortho Consult Reading Room PREGNANCY SCREEN, [id number] 14:58:00 Test Item Value Reference Range Interpretation Comments TEST URINE (BEAKER) (test Negative code = 583) POCT-GLUCOSE [id number] 12:44:00 Test Item Value Reference Range Interpretation Comments POC-GLUCOSE METER 156 mg/dL 70-110 H : TESTED A T [facility] 6720 (BEAKER) (test code = [place], 1538) [address]: Buck Swamper/Techni theo ID = [id number] for GIDEON UNNEZ [id number] 12:39:00 Test Item Value Reference Range Interpretation Comments RPR SCREEN (BEAKER) (test code = Nonreactive Nonreactive 420) B-TYPE NATRIURETIC FACTOR (BNP)2019-10-06 11:57:00 Test Item Value Reference Range Interpretation Comments B-TYPE NATRIURETIC PEPTIDE 3996 pg/mL 0-100 H (BEAKER) (test code = 700) [id number] 11:51:00 Test Item Value Reference Range Interpretation Comments MAGNESIUM (BEAKER) (test code = 2.2 mg/dL 1.6-2.6 627) BLOOD GAS, [id number] 11:50:00 Test Item Value Reference Range Interpretation [...] code = 1819) 50.0 % RESPIRATORY PANEL [id number] 11:35:00 Test Item Value Reference Range Interpretation [...] decisions. This sample was tested at the [facility] using the [employer] FilmArray Respiratory Panel. It is FDA cleared and has been verified and approved by the [facility] for clinical use on nasopharyngeal swab specimens.The performance of the FilmArrayRP has not been established in individuals who received influenza vaccine. Recent administration ofa nasal influenza vaccine may cause false positive results for Influenza A and/orInfluenza B.RETICULOCYTE [id number] 11:32:00 Test Item Value Reference Range Interpretation Comments RETICULOCYTE COUNT PCT ([facility]) (test 2.1 % 0.5-1.7 H code = 575) KETONE, [id number] 11:30:00 Test Item Value Reference Range Interpretation Comments KETONES, BLOOD (AKER) (test code 0.3 mmol/L <0.4 = 1103) LEGIONELLA ANTIGEN, [id number] 09:37:00 Test Item Value Reference Range Interpretation Comments L. PNEUMOPHILA Negative - see Negative fo r L. SEROGP 1 UR AG comment pneumophila (JASON) (test code serogrou p 1 antigen, = 1156) suggesting no r ecent or current infe ction with this serog roup. Legionellosis c annot be ruled out si nce other serogroup s and species may cau se disease. STREP PNEUMONIAE [id number] 09:37:00 Test Item Value Reference Range Interpretation Comments STREP PNEUMONIAE Presumptive negative Presumptive negative ANTIGEN (norin.tv) for pneumococcal for pneumococcal (test code = 1615) pneumonia - see pneumonia - see comment commen Presumptive negative for pneumococcal pneumonia, suggesting no current or recent pneumococcal infection. Infection due to S. pneumoniae cannot be ruled out since the antigen present in the sample may be below the detection limit of the test.POCT-GLUCOSE [id number] 08:45:00 Test Item Value Reference Range Interpretation Comments POC-GLUCOSE METER 119 mg/dL 70-110 H : TESTED A T [facility] 6720 ([employer]) (test code = [place], 1538) [address]: Buck Swamper/Techni theo ID = [id number] for SA NDERS, GIDEON RAD, CHEST, 1 VIEW, NON [id number] 08:37:00Post-intubationReason for exam:- >intubationShould this be performed [...] MDReport Verified Date/Time: 10/06/2019 08:37:13 Reading Location: [place] [id number] Ortho Consult Reading Room [id number] 07:44:00 Test Item Value Reference Range Interpretation Comments PROCALCITONIN (BEAKER) (test code 0.97 ng/mL <0.05 H = 3036) SEPSIS RISK (ng/mL)Low: 0.05-0.50Intermediate: 0.51-2.00High: >=2.01URINALYSIS W/ REFLEX URINE [id number] 07:15:00 Test Item Value Reference Range Interpretation [...] code = 2795) ALPHA FETOPROTEIN (AFP), TUMOR [id number] 06:49:00 Test Item Value Reference Range Interpretation Comments ALPHA-FETOPROTEIN (BEAKER) (test code < ng/mL <10.0 = 1094) For 1 occurencesHEPATITIS B SURFACE [id number] 06:49:00 Test Item Value Reference Range Interpretation Comments HEPATITIS B SURFACE ANTIBODY < mIU/mL <8.0 (BEAKER) (test code = 647) For 1 occurencesRAPID DRUG SCREEN, [id number] 06:33:00 Test Item Value Reference Range Interpretation [...] situations. Chain of custody not maintained. Some huiq-ycv-usvtqba medications, as well as adulterants, may cause inaccurate results. Clinical correlation should be applied. A more comprehensivedrug screen or confirmation of a detected drug may be performed upon request.CREATININE, RANDOM URINE 2019-10-06 06:30:00 Test Item Value Reference Range Interpretation Comments CREATININE URINE (BEAKER) (test 38.0 mg/dL code = 375) Reference Range: No NormalsSODIUM, RANDOM [id number] 06:30:00 Test Item Value Reference Range Interpretation Comments SODIUM URINE (BEAKER) (test code = 51 meq/L 243) Reference Range: No NormalsHEPATITIS B CORE ANTIBODY, [id number] 06:27:00 Test Item Value Reference Range Interpretation Comments HEPATITIS B CORE TOTAL ANTIBODY Nonreactive Nonreactive (BEAKER) (test code = 497) For 1 [id number] 05:50:00 Test Item Value Reference Range Interpretation Comments FERRITIN (BEAKER) (test code = 1588 ng/mL 5-275 H 361) For 1 occurencesACETAMINOPHEN [id number] 05:30:00 Test Item Value Reference Range Interpretation Comments ACETAMINOPHEN LEVEL (BEAKER) (test < ug/mL 10.0-30.0 L code = 344) Therapeutic Range: 10.0-30.0 g/mLToxic Levels: >200.0 g/mLFor 1 oczzsfdmegUZIPZ-2-[id number] 05:20:00 Test Item Value Reference Range Interpretation Comments ALPHA-1 ANTITRYPSIN (BEAKER) 266.90 mg/dL 90.00-200.00 H (test code = 502) [id number] 05:17:00 Test Item Value Reference Range Interpretation Comments THYROID STIMULATING HORMONE 0.75 uIU/mL 0.35-4.94 (BEAKER) (test code = 772) HEPATITIS PANEL, [id number] 05:17:00 Test Item Value Reference Range Interpretation Comments HEPATITIS A IGM ANTIBODY (BEAKER) Nonreactive Nonreactive (test code = 498) HEPATITIS B CORE IGM ANTIBODY Nonreactive Nonreactive (BEAKER) (test code = 645) HEPATITIS C ANTIBODY (BEAKER) Nonreactive Nonreactive (test code = 367) HEPATITIS B SURFACE ANTIGEN (2) Nonreactive Nonreactive (BEAKER) (test code = 2585) HIV-1 ANTIGEN WITH HIV-1/2 [id number] 05:17:00 Test Item Value Reference Range Interpretation Comments HIV-1 ANTIGEN WITH HIV 1\T\2 Nonreactive Nonreactive ANTIBODY (2) (BEAKER) (test code = 2586) BASIC METABOLIC [id number] 05:09:00 Test Item Value Reference Range Interpretation [...] APPLICABLE FOR DIALYSIS PATIEN TS. HEPATIC FUNCTION [id number] 05:09:00 Test Item Value Reference Range Interpretation [...] code = > U/L 6-55 H 347) [id number] 05:07:00 Test Item Value Reference Range Interpretation Comments PHOSPHORUS (BEAKER) (test code = 3.6 mg/dL 2.3-4.7 604) [id number] 05:07:00 Test Item Value Reference Range Interpretation [...] H (test code = 364) LACTIC ACID, [id number] 04:58:00 Test Item Value Reference Range Interpretation Comments LACTATE BLOOD ARTERIAL (2) 1.5 mmol/L 0.5-2.2 (BEAKER) (test code = 2874) [id number] 04:56:00 Test Item Value Reference Range Interpretation Comments ETHANOL (BEAKER) (test code = 400) < mg/dL <=10 [id number] 04:54:00 Test Item Value Reference Range Interpretation [...] L (test code = 2590) BLOOD GAS, [id number] 04:53:00 Test Item Value Reference Range Interpretation [...] 30.0 % CBC W/PLT COUNT & AUTO [id number] 04:53:00 Test Item Value Reference Range Interpretation [...] PERCENT (BEAKER) (test code = 2801) CALCIUM, [id number] 04:51:00 Test Item Value Reference Range Interpretation Comments CALCIUM IONIZED (BEAKER) (test 1.12 mmol/L 1.12-1.27 code = 698) PH, BLOOD (BEAKER) (test code = 7.35 1810) PROTHROMBIN [id number] 04:43:00 Test Item Value Reference Range Interpretation [...] INR is2.5-3.5 for patients wiht mechanical heart valves.[id number] 04:43:00 Test Item Value Reference Range Interpretation Comments FIBRINOGEN LEVEL (BEAKER) (test 265 mg/dl 225-434 code = 658) [id number] 04:43:00 Test Item Value Reference Range Interpretation [...] for patients wiht mechanical heart valves.ACUTE HEPATITIS [id number] 06:15:00 Test Item Value Reference Range Interpretation [...] a HCV Nucleic Acid Amplification t est (224184).Perfor med At: HD [facility] [id number] [place], [place] [id number] kris Gould MD Ph:[phone] HIV 1 2 ANTIBODY [id number] 06:15:00 Test Item Value Reference Range Interpretation Comments AB HIV 1 2 (test code = NON REACTIVE SCREEN NONREACTIVE UIL50WG) AG HIV1 P24 (test code = NON REACTIVE P24 NONREACTIVE [id number]) - CT ABD PELVIS [id number] 12:57:00 Name: GINA MARIE [facility] : 1965 Age/S: 53 / F [address] [address] [place] Unit #: [id number] Loc: [place] [address] Phys: Bryan Orta MD Acct: [id number] Dis Date: Status: ADM IN PHONE #: [phone] Exam Date: 03/09/2019 1200 FAX #: Reason: abd pain EXAMS: CPT: [id number] CT ABD PELVIS W/CONT 59594 LOCATION: T18 EXAM: CT ABDOMEN AND PELVIS [...] CTDI: DLP: PAGE 1 Signed ReportBASIC METABOLIC [id number] 07:37:00 Test Item Value Reference Range Interpretation [...] = CA) 8.7 MG/DL 8.5-10.1 N T4 [id number] 07:37:00 Test Item Value Reference Range Interpretation Comments T4 FREE (test code = T4F) 0.70 NG/DL 0.89-1.76 L THYROID STIMULATING [id number] 07:37:00 Test Item Value Reference Range Interpretation Comments THYROID STIMULATING HORMONE 1.540 mcIU/ML 0.340-4.820 N (test code = TSH) ACUTE HEPATITIS [id number] 07:33:00 Test Item Value Reference Range Interpretation Comments AB HEPATITIS A IGM (test code = HAVMAB) AG HEPATITIS B SURFACE (test code = SCREEN NEGATIVE HBSAG) AB HEPATITIS B CORE IGM (test code = HBCMAB) AB HEPATITIS C (test code = HCVAB) RATIO <0.8 HIV 1 2 ANTIBODY [id number] 07:33:00 Test Item Value Reference Range Interpretation Comments AB HIV 1 2 (test code = NON REACTIVE SCREEN NONREACTIVE MWK67IA) AG HIV1 P24 (test code = NON REACTIVE P24 NONREACTIVE CTP5E71) GLYCOSYLATED HEMOGLOBIN [id number] 07:26:00 Test Item Value Reference Range Interpretation Comments GLYCOSYLATED HEMOGLOBIN (HA1C) 5.8 % A1C 4.2-6.3 N (test code = GLYHGB) ESTIMATED AVERAGE GLUCOSE (test 120 MG/DLest code = EAG) CBC W/AUTO [id number] 07:21:00 Test Item Value Reference Range Interpretation [...] DIFF/SCN CRITERIA MDIFF) - CT HEAD/BRAIN W/O [id number] 19:39:00 Name: GINA MARIE [facility] : 1965 Age/S: 53 / F [address] Unit #: [id number] Loc: [place] [address] Phys: Maria Morel MD Acct: [id number] Dis Date: Status: ADM IN PHONE #: [phone] Exam Date: 03/08/2019 3400 FAX #: Reason: near syn cope EXAMS: CPT: [id number] CT HEAD/BRAIN W/O CONT 04175 CT head History: near syncope Comparison: None [...] Mascorro M.D. CC: Lou Sharp MD; Maria oMrel MD Technologist:Minal Lopez RT(R)(CT) CTDI: DLP: Trnscb Date/Time: 03/08/2019 (1938) [email or web address] Orig Print D/T: S: 03/08/2019 (1941) CTDI: DLP: PAGE 1 Signed ReportDRUGS OF ABUSE SCREEN [id number] 19:12:00 Test Item Value Reference Range Interpretation [...] NEGATIVE SCcutoff <300 NG/ML [place]) COMPREHENSIVE METABOLIC [id number] 17:26:00 Test Item Value Reference Range Interpretation [...] 45-117 N TOTAL (test code = ALKP) [id number] 17:26:00 Test Item Value Reference Range Interpretation Comments MAGNESIUM (test code = MAG) 1.9 MG/DL 1.8-2.4 N [id number] 17:26:00 Test Item Value Reference Range Interpretation Comments ALCOHOL (test code = ALC) < 3 MG/DL 0-10 N COMPREHENSIVE METABOLIC [id number] 17:21:00 Test Item Value Reference Range Interpretation [...] TOTAL (test Unit/L 45-117 code = ALKP) [id number] 17:21:00 Test Item Value Reference Range Interpretation Comments MAGNESIUM (test code = MAG) MG/DL 1.8-2.4 [id number] 17:21:00 Test Item Value Reference Range Interpretation Comments ALCOHOL (test code = ALC) MG/DL 0-10 CBC W/AUTO [id number] 17:08:00 Test Item Value Reference Range Interpretation [...] DIFF/SCN CRITERIA MDIFF) - XR CHEST 1 [id number] 16:33:00 Name: GINA MARIE [facility] : 1965 Age/S: 53 / F [address] Unit #: [id number] Loc: [place] [address] Phys: Maria Morel MD Acct: [id number] Dis Date: Status: PRE ER PHONE #: [phone] Exam Date: 03/08/2019 1846 FAX #: Reason: near syncope EXAMS: CPT: [id number] XR CHEST 1 V 27746 Fluoro Time: DAP (Gy m2): Air Kerma [...] MARIE : 1965 Age/S: 53 / F [address] Unit #: [id number] Loc: [place] [address] Phys: Maria Morel MD Acct: [id number] Dis Date: Status: PRE ER PHONE #: [phone] Exam Date: 03/08/2019 1625 FAX #: Reason: near syncope EXAMS: CPT: [id number] XR CHEST 1 V 28522 Fluoro Time: DAP (Gy m2): Air Kerma (mGy): <Continued>Technologist: Nanette Gordon RT(R)(CT) Trnscb Date/Time: 03/08/2019 (2763) EsthelaJP19 Orig Print D/T: S: 03/08/2019 (7350) PAGE 2 Signed Report
== END 2021-10-07 14:52 | disposition home or self-care (01) ==
LOC: ER 10:30
DX: M79.602 Pain in left arm (principal); M54.9 Dorsalgia, unspecified; G89.29 Other chronic pain; I10 Essential (primary) hypertension; E78.5 Hyperlipidemia, unspecified; F90.9 Attention-deficit hyperactivity disorder, unspecified type; F17.210 Nicotine dependence, cigarettes, uncomplicated; Z88.3 Allergy status to other anti-infective agents; Z91.040 Latex allergy status; Z91.048 Other nonmedicinal substance allergy status
CPT/HCPCS: 93005 ×2; 85025; 80048; 36415; 83735; 82550; 85610; 80076; 85730; 84484; 82553; 83690; 73080; 73060; 73110; 73000; 73010; 96372; 99284; J7030; J2405

== ENCOUNTER 2021-10-09 14:35 | Emergency (ER) | payer BC ==
[2021-10-09] MEDS ORDERED: HYDROCODONE/APAP 10/325 TAB ONE (15:11)
--- NOTE | 2021-10-09 15:45 | RAD REPORT ---
EXAM DESCRIPTION: CT - C Spine Wo Con - 10/09/2021 3:39 pm CLINICAL HISTORY: PAIN COMPARISON: Thoracic Spine W/o Cont dated 10/09/2021; C Spine Wo Con dated 12/14/2019; Neck Angio kelsie ed 08/21/[address] Scan was obtained of the cervical spine without contrast. Reformats were provided in th e sagittal and coronal plane. FINDINGS: No acute fracture of the cervical spine. Trace anterolisthesis of C4 on C5 and C5 on C6 li francis related to underlying degenerative changes and has been present on prior exams. No prevertebral edema. Mild multilevel cervical spondylosis. No suspicious thyroid nodules or lymphadenopathy. The lynnette ng apices are clear. IMPRESSION: No fracture or traumatic malalignment of the cervical spine.
--- NOTE | 2021-10-09 15:49 | RAD REPORT ---
EXAM DESCRIPTION: CT - Thoracic Spine W/o Cont - 10/09/2021 3:39 pm CLINICAL HISTORY: Radiculopathy. PAIN COMPARISON: C Spine Wo Con dated 12/14/2019; Neck Angio dated 08/21/2019; C Spine Wo Con dated 021 TECHNIQUE: Axial CT imaging through the thoracic spine was performed with coronal and sagittal re-fo rmatted images. All CT scans are performed using dose optimization technique as appropriate and may include automated exposure control or mA/KV adjustment according to patient size. FINDINGS: Vertebral body heights and disc spaces are maintained. Slight superior endplate deformity is present at T3. There is less than 20% loss of height and no bony retropulsion. Spinal stimulator n oted. Slight L1 anterior compression deformity with less than 20% loss of height. No significant disc space narrowing. Mild thoracolumbar curvature. Emphysema. Coronary artery calcifications. Hiatal hernia. No paraspinal masses or hematoma. Intervertebral disc detail is inherently limited on CT without gross findings of canal compromise. IMPRESSION: Subtle superior endplate deformity at T3 could represent acute compression fracture with less than 20% loss of height. There is a more chronic appearing compression fracture at L1 with less than 20% loss of height.
--- NOTE | 2021-10-09 16:11 | ER ---
Nurse's Notes [facility] Name: Pratibha Jennings Age: 56 yrs Sex: Female : 1965 Arrival Date: 10/09/2021 Time: 14:37 Bed 5 Private MD: Von Chaves C Diagnosis: Cervicalgia;Back pain - possible compression fracture T3 Presentation: 10/09 14:46 Chief complaint: Patient states: Fell two days ago and has been seen in ED twice for ss injury. It was confirmed that patient does not have any fractures, but is having ongoing, worsening, burning pain to L arm, neck and back. Coronavirus screen: Client denies travel out of the [place] in the last 14 days. Ebola Screen: Patient denies exposure to infectious person. Patient denies travel to an Ebola-affected area in the 21 days before illness onset. Initial Sepsis Screen: Does the patient meet any 2 criteria? No. Patient's initial sepsis screen is negative. Does the patient have a suspected source of infection? No. Patient's initial sepsis screen is negative. Risk Assessment: Do you want to hurt yourself or someone else? Patient reports no desire to harm self or others. Onset of symptoms was October 06, 2021. 14:46 Method Of Arrival: Wheelchair ss 14:46 Acuity: NUSRAT 4 ss Historical: - Allergies: 14:44 Iodine; topical; ss 14:44 Latex, Natural Rubber; ss - Home Meds: 14:44 Ambien 5 mg Oral tab 1 tab once daily [Active]; amlodipine oral [Active]; atorvastatin ss Oral [Active]; Fluoxetine Oral [Active]; gabapentin 600 mg Oral tab 1 tab daily [Active]; Hydroxyzine Oral [Active]; lidocaine patch [Active]; morphine 15 mg Oral tab 1 tab every 4 hours [Active]; oxycodone-acetaminophen 10-650 mg Oral tab 1 tab every 6 hours [Active]; tizanidine 4 mg Oral cap 1 cap [Active]; Zofran Oral [Active]; - PMHx: 14:44 ADD/ADHD; Back pain; Chronic pain; Degenerative disc disease; Hyperlipidemia; ss Hypertension; - PSHx: 14:44 Disc removal; Left clavicle; Left knee replacement; Left wrist surgery; Right knee ss replacement; Spinal surgery; - Immunization history:: Client reports receiving the 2nd dose of the Covid vaccine. - Social history:: Smoking status: Patient reports the use of cigarette tobacco products, smokes one-half pack cigarettes per day. Screenin:19 Abuse screen: Denies threats or abuse. Nutritional screening: No deficits noted. tw2 Tuberculosis screening: No symptoms or risk factors identified. Fall Risk Secondary diagnosis (15 points) impaired mobility. Assessment: 15:20 General: Appears uncomfortable, slender, Behavior is anxious, crying. Pain: Complains tw2 of pain in neck and back pain. Neuro: Level of Consciousness is awake, alert, obeys commands, Oriented to person, place, time, situation. Respiratory: Airway is patent Respiratory effort is even, unlabored, Respiratory pattern is regular, symmetrical. 17:34 Reassessment: No changes from previously documented assessment. Patient and/or family tw2 updated on plan of care and expected duration. Pain level reassessed. Patient is alert, oriented x 3, equal unlabored respirations, skin warm/dry/pink. Patient states symptoms have not improved. Vital Signs: 14:46 Resp 19; Weight 54.43 kg; Height 5 ft. 4 in. (162.56 cm); Pain 10/10; ss 15:19 BP 113 / 78; Pulse 87; Resp 17; Pulse Ox 99% on R/A; tw2 14:46 Body Mass Index 20.60 (54.43 kg, 162.56 cm) ss ED Course: 14:37 Patient arrived in ED. am2 14:38 Von Chaves MD is Private Physician. am2 14:46 Arm band placed on right wrist. ss 14:46 Placed in gown. Bed in low position. Side rails up X2. Adult w/ patient. Pulse ox on. tw2 NIBP on. 14:53 Ioana Lopez FNP-C is PHCP. kb 14:53 Soy Gutierrez MD is Attending Physician. kb 14:56 Triage completed. ss 15:08 Mayra Dailey RN is Primary Nurse. tw2 15:39 CT C Spine In Process Unspecified. EDMS 15:39 CT Thoracic Spine Wo Cont In Process Unspecified. EDMS 17:35 No provider procedures requiring assistance completed. Patient did not have IV access tw2 during this emergency room visit. Administered Medications: 15:19 Drug: [place] (HYDROcodone-acetaminophen) 10 mg-325 mg 1 tabs {Note: RASS 0.} Route: PO; tw2 16:40 Follow up: Response: No adverse reaction; Pain is unchanged, physician notified; RASS: tw2 Alert and Calm (0) 17:30 Drug: Flexeril (cyclobenzaprine) 10 mg Route: PO; tw2 17:34 Follow up: Response: No adverse reaction tw2 Outcome: 16:11 Discharge ordered by MD. dos santos 17:35 Discharged to home ambulatory. tw2 17:35 Condition: stable 17:35 Discharge instructions given to patient, significant other, Instructed on discharge instructions, follow up and referral plans. Demonstrated understanding of instructions, follow-up care. 17:36 Patient left the ED. tw2 Signatures: Dispatcher [employer] EDMS Ioana Lopez, BATSHEVA MARTINEZ-Gaby Jones RN RN ss Mayra Dailey RN RN tw2 Felicia Godwin am2
--- NOTE | 2021-10-09 16:11 | EDPHYS ---
Physician Documentation [facility] Name: Pratibha Jennings Age: 56 yrs Sex: Female : 1965 Arrival Date: 10/09/2021 Time: 14:37 Bed 5 Private MD: Von Chaves C ED Physician Soy Gutierrez HPI: 10/09 15:05 This 56 yrs old Female presents to ER via Wheelchair with complaints of Fall kb Injury, neck/back numbness. 15:05 Details of fall: The patient fell from an upright position, while walking. Onset: The kb symptoms/episode began/occurred 2 day(s) ago. Associated injuries: The patient sustained neck injury, pain, pain with movement, upper back injury, pain, pain with movement, left arm, painful injury. Severity of symptoms: At their worst the symptoms were moderate, in the emergency department the symptoms are unchanged. The patient has not experienced similar symptoms in the past. The patient has been recently seen at the [facility]. Pt states she fell 2 days ago while walking to the restroom. States she hit her head on the furniture. Came here and had imaging done, but now she is having pain to neck and back that is causing her to not be able to move. States the pain radiates down left arm and is described as shooting/burning pain. . Historical: - Allergies: 14:44 Iodine; topical; ss 14:44 Latex, Natural Rubber; ss - Home Meds: 14:44 Ambien 5 mg Oral tab 1 tab once daily [Active]; amlodipine oral [Active]; atorvastatin ss Oral [Active]; Fluoxetine Oral [Active]; gabapentin 600 mg Oral tab 1 tab daily [Active]; Hydroxyzine Oral [Active]; lidocaine patch [Active]; morphine 15 mg Oral tab 1 tab every 4 hours [Active]; oxycodone-acetaminophen 10-650 mg Oral tab 1 tab every 6 hours [Active]; tizanidine 4 mg Oral cap 1 cap [Active]; Zofran Oral [Active]; - PMHx: 14:44 ADD/ADHD; Back pain; Chronic pain; Degenerative disc disease; Hyperlipidemia; ss Hypertension; - PSHx: 14:44 Disc removal; Left clavicle; Left knee replacement; Left wrist surgery; Right knee ss replacement; Spinal surgery; - Immunization history:: Client reports receiving the 2nd dose of the Covid vaccine. - Social history:: Smoking status: Patient reports the use of cigarette tobacco products, smokes one-half pack cigarettes per day. ROS: 15:00 Constitutional: Negative for fever, chills, and weight loss. kb 15:00 Neck: Positive for pain with movement, pain at rest, tenderness. 15:00 Back: Positive for pain at rest, pain with movement, of the thoracic area. 15:00 MS/extremity: Positive for pain, of the left arm. 15:00 All other systems are negative. Exam: 15:01 Constitutional: This is a well developed, well nourished patient who is awake, alert, kb and in no acute distress. Head/Face: Normocephalic, atraumatic. ENT: Moist Mucous membranes Cardiovascular: Regular rate and rhythm with a normal S1 and S2. No gallops, murmurs, or rubs. No pulse deficits. Respiratory: Respirations even and unlabored. No increased work of breathing, no retractions or nasal flaring. Abdomen/GI: Soft, non-tender. No distention Skin: Warm, dry with normal turgor. Normal color. Neuro: Awake and alert, GCS 15, oriented to person, place, time, and situation. Moves all extremities. Normal gait. Psych: Awake, alert, with orientation to person, place and time. Behavior, mood, and affect are within normal limits. 15:01 Neck: C-spine: vertebral tenderness, that is moderate, diffusely. 15:01 Back: pain, that is moderate, of the thoracic area, vertebral tenderness, is appreciated at thoracic spine. 15:01 Musculoskeletal/extremity: Extremities: grossly normal except: noted in the left arm: decreased ROM, pain, ROM: limited active range of motion due to pain, in the left arm, Circulation is intact in all extremities. Sensation intact. Vital Signs: 14:46 Resp 19; Weight 54.43 kg; Height 5 ft. 4 in. (162.56 cm); Pain 10/10; ss 15:19 BP 113 / 78; Pulse 87; Resp 17; Pulse Ox 99% on R/A; tw2 14:46 Body Mass Index 20.60 (54.43 kg, 162.56 cm) ss MDM: 14:53 Patient medically screened. kb 14:55 Data reviewed: vital signs, nurses notes. Data interpreted: Pulse oximetry: on room air kb is 100 %. Interpretation: normal. 16:06 Counseling: I had a detailed discussion with the patient and/or guardian regarding: the kb historical points, exam findings, and any diagnostic results supporting the discharge/admit diagnosis, radiology results, the need for outpatient follow up, a family practitioner, to return to the emergency department if symptoms worsen or persist or if there are any questions or concerns that arise at home. 10/09 14:59 Order name: CT C Spine; Complete Time: 16:01 kb 10/09 14:59 Order name: CT Thoracic Spine Wo Cont; Complete Time: 16:01 kb Administered Medications: 15:19 Drug: [place] (HYDROcodone-acetaminophen) 10 mg-325 mg 1 tabs {Note: RASS 0.} Route: PO; tw2 16:40 Follow up: Response: No adverse reaction; Pain is unchanged, physician notified; RASS: tw2 Alert and Calm (0) 17:30 Drug: Flexeril (cyclobenzaprine) 10 mg Route: PO; tw2 17:34 Follow up: Response: No adverse reaction tw2 Disposition Summary: 10/09/21 16:11 Discharge Ordered Location: Home kb Condition: Stable kb Diagnosis - Cervicalgia kb - Back pain - possible compression fracture T3 kb Followup: kb - With: Emergency Department - When: As needed - Reason: Worsening of condition Followup: kb - With: Private Physician - When: 2 - 3 days - Reason: Recheck today's complaints, Continuance of care, Re-evaluation by your physician Discharge Instructions: - Discharge Summary Sheet kb - Spinal Compression Fracture kb - Musculoskeletal Pain kb Forms: - Medication Reconciliation Form kb - Thank You Letter kb - Antibiotic Education kb - Prescription Opioid Use kb Addendum: 10/11/2021 03:48 Co-signature as Attending Physician, Soy Gutierrez MD I agree with the assessment and k dr plan of care. Signatures: Dispatcher [employer] Ioana Hare, TELEPHONE EXCHANGE OPERATOR-C TELEPHONE EXCHANGE OPERATOR-CkSoy Sauceda MD MD [facility] Gaby Samaniego, ANGELA RN Mayra Dailey RN RN tw2
[2021-10-09] MEDS ORDERED: CYCLOBENZAPRINE 10 MG TAB ONE (17:24)
[2021-10-09 17:55] VITALS: BP 113/78; O2SAT 99
--- OUTSIDE RECORDS SUMMARY | 2021-10-10 22:52 | XMS REPORT | Continuity of Care Document ---
:1965 Author Organization [facility] t Address [address] [place] [address] Care Team Providers Name Role Phone Mary Chaves Primary Care Physician Eluogio, A Attending Clinician Unavailable CEZAR DAS Attending [...] Policy Number Effective Date Ex[facility] Date [id number] 2021 00:00:00 Problems Condition Condition Condition Status Onset Resolution Last Treating Co mments Source Name Details Category Date Date Treatment Clinician Date No known No known Disease Unive rs active active ity of problems problems [facility] Acute Problem Active 2021-04-11 Memor ia hepatic 01:17:26 l failure Acute [place] (disorder) hepatic failure (disorder) Active Problem 04/11/2021 [facility] 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:17:26 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 (disorder) Active Problem 04/11/2021 [facility] Carotid Problem Active 2021-04-11 Rao caity bruit 01:17:26 l (finding) Carotid Herm joão bruit (finding) Active Problem 04/11/2021 [facility] Cerebrovas Problem Active 2021-04-11 M emoria cular 01:17:26 l accident [place] (disorder) Cerebrovas cular accident (disorder) Active Problem [...] Rash Univers Allergy 08-14 ity of 00:00: [facility] IODINE DRUG Active Rash Univers INGREDI 08-14 ity of 00:00: [place] [facility] latex DA Active SV [facility] 7-12 Clear 00:00: [place] [facility] latex DA Active SV BLISTERS, [facility] RASH 12 Clear 00:00: [place] [facility] Povidone Propensi Active Rash Patient Unive rs -Iodine ty to 03-31 reports ity of adverse 00:00: blisterin [place] reaction 00 g and Medical s rashPatie Branch nt reports blisterin g and rashPatie nt reports blisterin g and rash POVIDONE DRUG Active Low Hives Univers -IODINE INGREDI 03-31 ity of 00:00: [facility] iodine DA Active [place] [facility] 07-04 Clear 00:00: [place] [facility] iodine DA Active [place] TOPICAL [facility] IODINE-RASH/ 07-04 Lanny r BLISTER 00:00: [place] 00 [facility] iodine iodine Active Memoria topical< topical< l sup>1</s sup>1</s Reece n up> up> NO KNOWN Drug Active Univers ALLERGIE Class ity of S [facility] Social History Social Habit Start Date Stop Date Quantity Comments Source History of tobacco Cigarette Smoker University of use [facility] Cigarettes smoked 2021-08-14 2021-08-14 Univers ity of current (pack per 00:00:00 00:00:00 [facility] ) - Reported Branch Tobacco use and 2021-08-14 2021-08-14 Never used Universit y of exposure 00:00:00 00:00:00 [facility] Alcohol intake 2021-08-14 2021-08-14 Current drinker Unive rsity of 00:00:00 00:00:[address] [facility] (finding) [place] Social History 2019-07-18 2019-07-18 Yuliana brar 15:14:03 15:14:03 Sex [birth year] At [birth year] Universit y of 00:00:00 00:00:00 [facility] Smoking Status Start Date Stop Date Source Unknown if ever smoked Universit y of [facility] Current every day smoker 2021-08-14 00:00:00 Uni versity of [facility] Medications Ordered Filled Start Stop Current Ordering Indication Dosage Frequency Signature Comments Components Source Medication Medication Date Date Medication? Clinician (SIG) Name Name zolpidem Yes 5mg Take 5 mg Univ ers 12.5 mg CR 9-17 by mouth. ity of tablet 10:31: [address] ALPRAZolam Yes alprazolam U nivers 0.5 mg 9-17 0.5 mg ity of tablet 10:31: tablet [place] [id number] Take 1 Medical tablet Branch every day by oral route for 10 days. Dexlansopra Yes Dexilant Un malia zole 9-17 60 mg ity of (DEXILANT) 10:31: capsule, Luis as 60 mg 37 delayed Medical capsule release Branch Take 1 capsule every day by oral route for 56 days. gabapentin Yes gabapentin U nivers 600 mg 9-17 600 mg ity of tablet 10:31: tablet [place] [address] Take 1 Medical tablet 3 Branch times a day by oral route. tiZANidine Yes 4mg Take 4 mg Un malia 4 mg tablet 9-17 by mouth. ity of 10:31: [address] zolpidem Yes 5mg Take 5 mg Univ ers 12.5 mg CR 9-17 by mouth. ity of tablet 10:31: [address] ALPRAZolam Yes alprazolam U nivers 0.5 mg 9-17 0.5 mg ity of tablet 10:31: tablet [place] 37 Take 1 Medical tablet Branch every [...] 600 mg ity of tablet 10:31: tablet [place] 37 Take 1 Medical tablet 3 Branch times a day by oral route. tiZANidine 2020-0 Yes 4mg Take 4 mg Un malia 4 mg tablet 9-17 by mouth. ity of 10:31: [address] zolpidem 2020-0 Yes 5mg Take 5 mg Univ ers 12.5 mg CR 9-17 by mouth. ity of tablet 10:31: [address] ALPRAZolam 2020-0 Yes alprazolam U nivers 0.5 mg 9-17 0.5 mg ity of tablet 10:31: tablet [place] 37 Take 1 Medical tablet Branch every [...] 600 mg ity of tablet 10:31: tablet [place] [address] Take 1 Medical tablet 3 Branch times a day by oral route. tiZANidine 2020-0 Yes 4mg Take 4 mg Un malia 4 mg tablet 9-17 by mouth. ity of 10:31: [address] zolpidem 0 Yes 5mg Take 5 mg Univ ers 12.5 mg CR 9-17 by mouth. ity of tablet 10:31: [address] ALPRAZolam 2020-0 Yes alprazolam U nivers 0.5 mg 9-17 0.5 mg ity of tablet 10:31: tablet [place] [address] Take 1 Medical tablet Branch every day [...] mouth. ity of 10:31: Medical Branch zolpidem 0 Yes 5mg Take 5 mg Univ ers 12.5 mg CR 9-17 by mouth. ity of tablet 10:31: Medical Branch ALPRAZolam 0 Yes alprazolam U nivers 0.5 [...] by mouth. ity of 10:31: Medical Branch atorvastati Yes 10mg Take 10 mg Univers n 10 mg 7-25 by mouth ity of tablet 00:00: every [place] 00 evening. Medical Branch atorvastati Yes 10mg Take 10 mg Univers n 10 mg 7-25 by mouth ity of tablet 00:00: every [place] 00 evening. Medical Branch atorvastati 0 Yes 10mg Take 10 mg Univers n 10 mg 7-25 by mouth ity of tablet 00:00: every [place] 00 evening. Medical Branch atorvastati 0 Yes 10mg Take 10 mg Univers n 10 mg 7-25 by mouth ity of tablet 00:00: every [place] 00 evening. Medical Branch atorvastati 0 Yes 10mg Take 10 mg Univers n 10 mg 7-25 by mouth ity of tablet 00:00: every [place] 00 evening. Medical Branch atorvastati Yes 20 mg = 2 M emoria n 10 mg 1-25 tab, PO, l oral tablet 21:02: Daily, # He rmann 00 60 tab, 1 Refill(s), Pharmacy: [facility] #[id number], 162.56, cm, 12/22/20 14:47:00 [employer], Height, 66.818, kg, 12/22/20 14:47:00 [facility] [employer], Weight atorvastati 2020-0 Yes 20 mg = 2 M emoria n 10 mg 1-25 tab, PO, l oral tablet 21:02: Daily, # [place] 00 60 tab, 1 Refill(s), Pharmacy: [facility] #[id number], 162.56, cm, 12/22/20 14:47:00 [employer], Height, 66.818, kg, 12/22/20 14:47:00 [employer], Weight atorvastati 2020-0 Yes 20 mg = 2 M emoria n 10 mg 1-25 tab, PO, l oral tablet 21:02: Daily, # Brendon rmann 00 60 tab, 1 Refill(s), Pharmacy: [facility] #[id number], 162.56, cm, 12/22/20 14:47:00 [employer], Height, 66.818, kg, 12/22/20 14:47:00 [employer], Weight atorvastati 2020-0 Yes 20 mg = 2 M emoria n 10 mg 1-25 tab, PO, l oral tablet 21:02: Daily, # [place] r[place] 00 60 tab, 1 Refill(s), [id number], 162.56, cm, 12/22/20 14:47:00 [employer], Height, 66.818, kg, 12/22/20 14:47:00 [employer], Weight atorvastati 2020-0 Yes 20 mg = 2 M emoria n 10 mg 1-25 tab, PO, l oral tablet 21:02: Daily, # [place] 00 60 tab, 1 Refill(s), Pharmacy: [facility] #[id number], 162.56, cm, 12/22/20 14:47:00 [employer], Height, 66.818, kg, 12/22/20 14:47:00 [employer], Weight atorvastati 2021-0 Yes 20 mg = 2 M emoria n 10 mg 1-25 tab, PO, l oral tablet 21:02: Daily, # [place] r[place] 00 60 tab, 1 Refill(s), Pharmacy: [facility] #[id number], 162.56, cm, 12/22/20 14:47:00 [employer], Height, 66.818, kg, 12/22/20 14:47:00 [employer], Weight atorvastati Yes 20 mg = 2 M emoria n 10 mg 1-25 tab, PO, l oral tablet 21:02: Daily, # [place] 00 60 tab, 1 Refill(s), Pharmacy: [facility] #[id number], 162.56, cm, 12/22/20 14:47:00 [employer], Height, 66.818, kg, 12/22/20 14:47:00 [employer], Weight atorvastati Yes 20 mg = 2 M emoria n 10 mg 1-25 tab, PO, l oral tablet 21:02: Daily, # [place] r[place] 00 60 tab, 1 Refill(s), [id number], 162.56, cm, 12/22/20 14:47:00 [employer], Height, 66.818, kg, 12/22/20 14:47:00 [employer], Weight atorvastati Yes 20 mg = 2 M emoria n 10 mg 1-25 tab, PO, l oral tablet 21:02: Daily, # [place] r[place] 00 60 tab, 1 Refill(s), Pharmacy: [facility] #[id number], 162.56, cm, 12/22/20 14:47:00 [employer], Height, 66.818, kg, 12/22/20 14:47:00 [employer], Weight atorvastati Yes 20 mg = 2 M emoria n 10 mg 1-25 tab, PO, l oral tablet 21:02: Daily, # [place] 00 60 tab, 1 Refill(s), [id number], 162.56, cm, 12/22/20 14:47:00 [employer], Height, 66.818, kg, 12/22/20 14:47:00 [employer], Weight atorvastati 2020-0 Yes 20 mg = 2 M emoria n 10 mg 1-25 tab, PO, l oral tablet 21:02: Daily, # He r[place] 00 60 tab, 1 Refill(s), Pharmacy: [facility] #[id number], 162.56, cm, 12/22/20 14:47:00 [employer], Height, 66.818, kg, 12/22/20 14:47:00 [employer], Weight atorvastati 2020-0 Yes 20 mg = 2 M emoria n 10 mg 1-25 tab, PO, l oral tablet 21:02: Daily, # He r[place] 00 60 tab, 1 Refill(s), Pharmacy: [facility] #[id number], 162.56, cm, 12/22/20 14:47:00 [employer], Height, 66.818, kg, 12/22/20 14:47:00 [employer], Weight atorvastati 2020-0 Yes 20 mg = 2 M emoria n 10 mg 1-25 tab, PO, l oral tablet 21:02: Daily, # [place] r[place] 00 60 tab, 1 Refill(s), Pharmacy: [facility] #[id number], 162.56, cm, 12/22/20 14:47:00 [employer], Height, 66.818, kg, 12/22/20 14:47:00 [employer], Weight atorvastati 2020-0 Yes 20 mg = 2 M emoria n 10 mg 1-25 tab, PO, l oral tablet 21:02: Daily, # [place] 00 60 tab, 1 Refill(s), Pharmacy: [facility] #[id number], 162.56, cm, 12/22/20 14:47:00 [employer], Height, 66.818, kg, 12/22/20 14:47:00 [employer], Weight atorvastati 2020-0 Yes 20 mg = 2 M emoria n 10 mg 1-25 tab, PO, l oral tablet 21:02: Daily, # [place] 00 60 tab, 1 Refill(s), Pharmacy: [facility] #[id number], 162.56, cm, 12/22/20 14:47:00 [employer], Height, 66.818, kg, 12/22/20 14:47:00 [employer], Weight atorvastati 2020-0 Yes 20 mg = 2 M emoria n 10 mg 1-25 tab, PO, l oral tablet 21:02: Daily, # [place] 00 60 tab, 1 Refill(s), [id number], 162.56, cm, 12/22/20 14:47:00 [employer], Height, 66.818, kg, 12/22/20 14:47:00 [employer], Weight atorvastati 2020-0 Yes 20 mg = 2 M emoria n 10 mg 1-25 tab, PO, l oral tablet 21:02: Daily, # [place] 00 60 tab, 1 Refill(s), [facility][id number], 162.56, cm, 12/22/20 14:47:00 [employer], Height, 66.818, kg, 12/22/20 14:47:00 [employer], Weight atorvastati 2020-0 Yes 20 mg = 2 M emoria n 10 mg 1-25 tab, PO, l oral tablet 21:02: Daily, # [place] 00 60 tab, 1 Refill(s), [id number], 162.56, cm, 12/22/20 14:47:00 [employer], Height, 66.818, kg, 12/22/20 14:47:00 [employer], Weight atorvastati 2020-0 Yes 20 mg = 2 M emoria n 10 mg 1-25 tab, PO, l oral tablet 21:02: Daily, # [place] 00 60 tab, 1 Refill(s), [id number], 162.56, cm, 12/22/20 14:47:00 [employer], Height, 66.818, kg, 12/22/20 14:47:00 [employer], Weight atorvastati 2020-0 Yes 20 mg = 2 M emoria n 10 mg 1-25 tab, PO, l oral tablet 21:02: Daily, # [place] 00 60 tab, 1 Refill(s), [id number], 162.56, cm, 12/22/20 14:47:00 [employer], Height, 66.818, kg, 12/22/20 14:47:00 [employer], Weight topiramate 2020-0 Yes 50 mg = 1 Me moria 50 mg oral 9-03 tab, PO, l tablet 18:52: BID, # 60 Reece n 00 tab, 3 Refill(s), Pharmacy: [facility] [place][id number], 162.56, cm, 07/31/20 13:42:00 CDT, Height, 56.818, kg, 07/31/20 13:42:00 CDT, Weight topiramate 2020-0 Yes 50 mg = 1 Me moria 50 mg oral 9-03 tab, PO, l tablet 18:52: BID, # 60 Reece n 00 tab, 3 Refill(s), Pharmacy: [facility] [place][id number], 162.56, cm, 07/31/20 13:42:00 CDT, Height, 56.818, kg, 07/31/20 13:42:00 CDT, Weight topiramate 2020-0 Yes 50 mg = 1 Me moria 50 mg oral 9-03 tab, PO, l tablet 18:52: BID, # 60 Reece n 00 tab, 3 Refill(s), Pharmacy: [facility] [place][id number], 162.56, cm, 07/31/20 13:42:00 CDT, Height, 56.818, kg, 07/31/20 13:42:00 CDT, Weight topiramate 2020-0 Yes 50 mg = 1 Me moria 50 mg oral 9-03 tab, PO, l tablet 18:52: BID, # 60 Reece n 00 tab, 3 Refill(s), Pharmacy: [facility] #[id number], 162.56, cm, 07/31/20 13:42:00 CDT, Height, 56.818, kg, 07/31/20 13:42:00 CDT, Weight topiramate 2020-0 Yes 50 mg = 1 Me moria 50 mg oral 9-03 tab, PO, l tablet 18:52: BID, # 60 Reece n 00 tab, 3 Refill(s), Pharmacy: [facility] #[id number], 162.56, cm, 07/31/20 13:42:00 CDT, Height, 56.818, kg, 07/31/20 13:42:00 CDT, Weight topiramate 2020-0 Yes 50 mg = 1 Me moria 50 mg oral 9-03 tab, PO, l tablet 18:52: BID, # 60 Reece n 00 tab, 3 Refill(s), Pharmacy: [facility] #[id number], 162.56, cm, 07/31/20 13:42:00 CDT, Height, 56.818, kg, 07/31/20 13:42:00 CDT, Weight topiramate 2020-0 Yes 50 mg = 1 Me moria 50 mg oral 9-03 tab, PO, l tablet 18:52: BID, # 60 Reece n 00 tab, 3 Refill(s), Pharmacy: [facility] [place][id number], 162.56, cm, 07/31/20 13:42:00 CDT, Height, 56.818, kg, 07/31/20 13:42:00 CDT, Weight topiramate 2020-0 Yes 50 mg = 1 Me moria 50 mg oral 9-03 tab, PO, l tablet 18:52: BID, # 60 Reece n 00 tab, 3 Refill(s), Pharmacy: [facility] [place][id number], 162.56, cm, 07/31/20 13:42:00 CDT, Height, 56.818, kg, 07/31/20 13:42:00 CDT, Weight topiramate 2020-0 Yes 50 mg = 1 Me moria 50 mg oral 9-03 tab, PO, l tablet 18:52: BID, # 60 Reece n 00 tab, 3 Refill(s), Pharmacy: [facility] #[id number], 162.56, cm, 07/31/20 13:42:00 CDT, Height, 56.818, kg, 07/31/20 13:42:00 CDT, Weight topiramate 2020-0 Yes 50 mg = 1 Me moria 50 mg oral 9-03 tab, PO, l tablet 18:52: BID, # 60 Reece n 00 tab, 3 Refill(s), Pharmacy: [facility] #[id number], 162.56, cm, 07/31/20 13:42:00 CDT, Height, 56.818, kg, 07/31/20 13:42:00 CDT, Weight topiramate 2020-0 Yes 50 mg = 1 Me moria 50 mg oral 9-03 tab, PO, l tablet 18:52: BID, # 60 Reece n 00 tab, 3 Refill(s), Pharmacy: [facility] #[id number], 162.56, cm, 07/31/20 13:42:00 CDT, Height, 56.818, kg, 07/31/20 13:42:00 CDT, Weight topiramate 2020-0 Yes 50 mg = 1 Me moria 50 mg oral 9-03 tab, PO, l tablet 18:52: BID, # 60 Reece n 00 tab, 3 Refill(s), Pharmacy: [facility] #[id number], 162.56, cm, 07/31/20 13:42:00 CDT, Height, 56.818, kg, 07/31/20 13:42:00 CDT, Weight topiramate 2020-0 Yes 50 mg = 1 Me moria 50 mg oral 9-03 tab, PO, l tablet 18:52: BID, # 60 Reece n 00 tab, 3 Refill(s), Pharmacy: [facility] #[id number], 162.56, cm, 07/31/20 13:42:00 CDT, Height, 56.818, kg, 07/31/20 13:42:00 CDT, Weight topiramate 2020-0 Yes 50 mg = 1 Me moria 50 mg oral 9-03 tab, PO, l tablet 18:52: BID, # 60 Reece n 00 tab, 3 Refill(s), Pharmacy: [facility] #[id number], 162.56, cm, 07/31/20 13:42:00 CDT, Height, 56.818, kg, 07/31/20 13:42:00 CDT, Weight topiramate 2020-0 Yes 50 mg = 1 Me moria 50 mg oral 9-03 tab, PO, l tablet 18:52: BID, # 60 Reece n 00 tab, 3 Refill(s), Pharmacy: [facility] #[id number], 162.56, cm, 07/31/20 13:42:00 CDT, Height, 56.818, kg, 07/31/20 13:42:00 CDT, Weight topiramate 2020-0 Yes 50 mg = 1 Me moria 50 mg oral 9-03 tab, PO, l tablet 18:52: BID, # 60 Reece n 00 tab, 3 Refill(s), Pharmacy: [facility] #[id number], 162.56, cm, 07/31/20 13:42:00 CDT, Height, 56.818, kg, 07/31/20 13:42:00 CDT, Weight topiramate 2020-0 Yes 50 mg = 1 Me moria 50 mg oral 9-03 tab, PO, l tablet 18:52: BID, # 60 Reece n 00 tab, 3 Refill(s), Pharmacy: [facility] [place][id number], 162.56, cm, 07/31/20 13:42:00 CDT, Height, 56.818, kg, 07/31/20 13:42:00 CDT, Weight topiramate 2020-0 Yes 50 mg = 1 Me moria 50 mg oral 9-03 tab, PO, l tablet 18:52: BID, # 60 Reece n 00 tab, 3 Refill(s), Pharmacy: [facility] [place][id number], 162.56, cm, 07/31/20 13:42:00 CDT, Height, 56.818, kg, 07/31/20 13:42:00 CDT, Weight topiramate 2020-0 Yes 50 mg = 1 Me moria 50 mg oral 9-03 tab, PO, l tablet 18:52: BID, # 60 Reece n 00 tab, 3 Refill(s), Pharmacy: [facility] #[id number], 162.56, cm, 07/31/20 13:42:00 CDT, Height, 56.818, kg, 07/31/20 13:42:00 CDT, Weight topiramate 2020-0 Yes 50 mg = 1 Me moria 50 mg oral 9-03 tab, PO, l tablet 18:52: BID, # 60 Reece n 00 tab, 3 Refill(s), [facility]: [facility] #[id number], 162.56, cm, 07/31/20 13:42:00 CDT, Height, 56.818, kg, 07/31/20 13:42:00 CDT, Weight topiramate 2020-0 Yes 25 mg = 1 Me moria 25 MG Oral 4-15 tab, PO, l Tablet 20:04: BID, # 60 Reece n [Topamax] 00 tab, 2 Refill(s), Pharmacy: [facility] #[id number] topiramate 2020-0 Yes 25 mg = 1 Me moria 25 MG Oral 4-15 tab, PO, l Tablet 20:04: BID, # 60 Reece n [Topamax] 00 tab, 2 Refill(s), Pharmacy: [facility] #[id number] topiramate 2020-0 Yes 25 mg = 1 Me moria 25 MG Oral 4-15 tab, PO, l Tablet 20:04: BID, # 60 Reece n [Topamax] 00 tab, 2 Refill(s), Pharmacy: [facility] #[id number] topiramate 2020-0 Yes 25 mg = 1 Me moria 25 MG Oral 4-15 tab, PO, l Tablet 20:04: BID, # 60 Reece n [Topamax] 00 tab, 2 Refill(s), Pharmacy: [facility] #[id number] topiramate 2020-0 Yes 25 mg = 1 Me moria 25 MG Oral 4-15 tab, PO, l Tablet 20:04: BID, # 60 Reece n [Topamax] 00 tab, 2 Refill(s), Pharmacy: [facility] #[id number] topiramate 2020-0 Yes 25 mg = 1 Me moria 25 MG Oral 4-15 tab, PO, l Tablet 20:04: BID, # 60 Reece n [Topamax] 00 tab, 2 Refill(s), Pharmacy: [facility] #[id number] topiramate 2020-0 Yes 25 mg = 1 Me moria 25 MG Oral 4-15 tab, PO, l Tablet 20:04: BID, # 60 Reece n [Topamax] 00 tab, 2 Refill(s), Pharmacy: [facility] #[id number] topiramate 2020-0 Yes 25 mg = 1 Me moria 25 MG Oral 4-15 tab, PO, l Tablet 20:04: BID, # 60 Reece n [Topamax] 00 tab, 2 Refill(s), Pharmacy: [facility] #[id number] topiramate 2020-0 Yes 25 mg = 1 Me moria 25 MG Oral 4-15 tab, PO, l Tablet 20:04: BID, # 60 Reece n [Topamax] 00 tab, 2 Refill(s), Pharmacy: [facility] #[id number] topiramate 2020-0 Yes 25 mg = 1 Me moria 25 MG Oral 4-15 tab, PO, l Tablet 20:04: BID, # 60 Reece n [Topamax] 00 tab, 2 Refill(s), Pharmacy: [facility] #[id number] topiramate 2020-0 Yes 25 mg = 1 Me moria 25 MG Oral 4-15 tab, PO, l Tablet 20:04: BID, # 60 Reece n [Topamax] 00 tab, 2 Refill(s), Pharmacy: [facility] #[id number] topiramate 2020-0 Yes 25 mg = 1 Me moria 25 MG Oral 4-15 tab, PO, l Tablet 20:04: BID, # 60 Reece n [Topamax] 00 tab, 2 Refill(s), Pharmacy: [facility] #[id number] topiramate 2020-0 Yes 25 mg = 1 Me moria 25 MG Oral 4-15 tab, PO, l Tablet 20:04: BID, # 60 Reece n [Topamax] 00 tab, 2 Refill(s), Pharmacy: [facility] #[id number] topiramate 2020-0 Yes 25 mg = 1 Me moria 25 MG Oral 4-15 tab, PO, l Tablet 20:04: BID, # 60 Reece n [Topamax] 00 tab, 2 Refill(s), Pharmacy: [facility] #[id number] topiramate 2020-0 Yes 25 mg = 1 Me moria 25 MG Oral 4-15 tab, PO, l Tablet 20:04: BID, # 60 Reece n [Topamax] 00 tab, 2 Refill(s), Pharmacy: [facility] #[id number] topiramate 2020-0 Yes 25 mg = 1 Me moria 25 MG Oral 4-15 tab, PO, l Tablet 20:04: BID, # 60 Reece n [Topamax] 00 tab, 2 Refill(s), Pharmacy: [facility] #[id number] topiramate 2020-0 Yes 25 mg = 1 Me moria 25 MG Oral 4-15 tab, PO, l Tablet 20:04: BID, # 60 Reece n [Topamax] 00 tab, 2 Refill(s), Pharmacy: [facility] #[id number] topiramate 2020-0 Yes 25 mg = 1 Me moria 25 MG Oral 4-15 tab, PO, l Tablet 20:04: BID, # 60 Reece n [Topamax] 00 tab, 2 Refill(s), Pharmacy: [facility] #[id number] topiramate 2020-0 Yes 25 mg = 1 Me moria 25 MG Oral 4-15 tab, PO, l Tablet 20:04: BID, # 60 Reece n [Topamax] 00 tab, 2 Refill(s), Pharmacy: [facility] #[id number] topiramate 2020-0 Yes 25 mg = 1 Me moria 25 MG Oral 4-15 tab, PO, l Tablet 20:04: BID, # 60 Reece n [Topamax] 00 tab, 2 Refill(s), Pharmacy: [facility] #[id number] Morphine 2020-0 Yes 15 mg, PO, Mem oria 2-25 Q12H, 0 l 19:30: Refill(s) [place] Morphine 2020-0 Yes 15 mg, PO, Mem oria 2-25 Q12H, 0 l 19:30: Refill(s) [place] 00 Morphine 2020-0 Yes 15 mg, PO, Mem oria 2-25 Q12H, 0 l 19:30: Refill(s) [place] Morphine 2020-0 Yes 15 mg, PO, Mem oria 2-25 Q12H, 0 l 19:30: Refill(s) [place] 00 Morphine 2020-0 Yes 15 mg, PO, Mem oria 2-25 Q12H, 0 l 19:30: Refill(s) [place] 00 Morphine 2020-0 Yes 15 mg, PO, Mem oria 2-25 Q12H, 0 l 19:30: Refill(s) [place] 00 Morphine 2020-0 Yes 15 mg, PO, Mem oria 2-25 Q12H, 0 l 19:30: Refill(s) [place] 00 Morphine 2020-0 Yes 15 mg, PO, Mem oria 2-25 Q12H, 0 l 19:30: Refill(s) [place] 00 Morphine 2020-0 Yes 15 mg, PO, Mem oria 2-25 Q12H, 0 l 19:30: Refill(s) [place] 00 Morphine 2020-0 Yes 15 mg, PO, Mem oria 2-25 Q12H, 0 l 19:30: Refill(s) [place] 00 Morphine 2020-0 Yes 15 mg, PO, Mem oria 2-25 Q12H, 0 l 19:30: Refill(s) [place] 00 Morphine 2020-0 Yes 15 mg, PO, Mem oria 2-25 Q12H, 0 l 19:30: Refill(s) [place] 00 Morphine 2020-0 Yes 15 mg, PO, Mem oria 2-25 Q12H, 0 l 19:30: Refill(s) [place] 00 Morphine 2020-0 Yes 15 mg, PO, Mem oria 2-25 Q12H, 0 l 19:30: Refill(s) [place] 00 Morphine 2020-0 Yes 15 mg, PO, Mem oria 2-25 Q12H, 0 l 19:30: Refill(s) [place] 00 Morphine 2020-0 Yes 15 mg, PO, [...] oria 2-25 Q12H, 0 l 19:30: Refill(s) [place] 00 topiramate 2020-0 Yes 25 mg = 1 Me moria 25 MG Oral 2-14 tab, PO, l Tablet 23:50: BID, # 60 [place] [Topamax] 00 tab, 2 Refill(s), Pharmacy: [id number] topiramate 2020-0 Yes 25 mg = 1 Me mor[place] 25 MG Oral 2-14 tab, PO, l Tablet 23:50: BID, # 60 [place] [Topamax] 00 tab, 2 Refill(s), Pharmacy: [facility] [id number] topiramate 2020-0 Yes 25 mg = 1 [place] 25 MG Oral 2-14 tab, PO, l Tablet 23:50: BID, # 60 [place] [Topamax] 00 tab, 2 Refill(s), Pharmacy: [facility] [id number] topiramate 2020-0 Yes 25 mg = 1 [place] 25 MG Oral 2-14 tab, PO, l Tablet 23:50: BID, # 60 [place] [Topamax] 00 tab, 2 Refill(s), Pharmacy: [facility] #[id number] topiramate 2020-0 Yes 25 mg = 1 [place] 25 MG Oral 2-14 tab, PO, l Tablet 23:50: BID, # 60 [place] [Topamax] 00 tab, 2 Refill(s), Pharmacy: [facility] #[id number] topiramate 2020-0 Yes 25 mg = 1 [place] 25 MG Oral 2-14 tab, PO, l Tablet 23:50: BID, # 60 [place] [Topamax] 00 tab, 2 Refill(s), Pharmacy: [facility] #[id number] topiramate 2020-0 Yes 25 mg = 1 [place] 25 MG Oral 2-14 tab, PO, l Tablet 23:50: BID, # 60 [place] [Topamax] 00 tab, 2 Refill(s), Pharmacy: [facility] #[id number] topiramate 2020-0 Yes 25 mg = 1 Me moria 25 MG Oral 2-14 tab, PO, l Tablet 23:50: BID, # 60 Reece n [Topamax] 00 tab, 2 Refill(s), Pharmacy: [facility] #[id number] topiramate 2020-0 Yes 25 mg = 1 Me moria 25 MG Oral 2-14 tab, PO, l Tablet 23:50: BID, # 60 Reece n [Topamax] 00 tab, 2 Refill(s), Pharmacy: [facility] #[id number] topiramate 2020-0 Yes 25 mg = 1 Me moria 25 MG Oral 2-14 tab, PO, l Tablet 23:50: BID, # 60 Reece n [Topamax] 00 tab, 2 Refill(s), Pharmacy: [facility] #[id number] topiramate 2020-0 Yes 25 mg = 1 Me moria 25 MG Oral 2-14 tab, PO, l Tablet 23:50: BID, # 60 Reece n [Topamax] 00 tab, 2 Refill(s), Pharmacy: [facility] #[id number] topiramate 2020-0 Yes 25 mg = 1 Me moria 25 MG Oral 2-14 tab, PO, l Tablet 23:50: BID, # 60 Reece n [Topamax] 00 tab, 2 Refill(s), Pharmacy: [facility] #[id number] topiramate 2020-0 Yes 25 mg = 1 Me moria 25 MG Oral 2-14 tab, PO, l Tablet 23:50: BID, # 60 Reece n [Topamax] 00 tab, 2 Refill(s), Pharmacy: [facility] #[id number] topiramate 2020-0 Yes 25 mg = 1 Me moria 25 MG Oral 2-14 tab, PO, l Tablet 23:50: BID, # 60 Reece n [Topamax] 00 tab, 2 Refill(s), Pharmacy: [facility] #[id number] topiramate 2020-0 Yes 25 mg = 1 Me moria 25 MG Oral 2-14 tab, PO, l Tablet 23:50: BID, # 60 Reece n [Topamax] 00 tab, 2 Refill(s), Pharmacy: [facility] #[id number] topiramate 2020-0 Yes 25 mg = 1 Me moria 25 MG Oral 2-14 tab, PO, l Tablet 23:50: BID, # 60 Reece n [Topamax] 00 tab, 2 Refill(s), Pharmacy: [facility] #[id number] topiramate 2020-0 Yes 25 mg = 1 Me moria 25 MG Oral 2-14 tab, PO, l Tablet 23:50: BID, # 60 Reece n [Topamax] 00 tab, 2 Refill(s), Pharmacy: [facility] #[id number] topiramate 2020-0 Yes 25 mg = 1 Me moria 25 MG Oral 2-14 tab, PO, l Tablet 23:50: BID, # 60 Reece n [Topamax] 00 tab, 2 Refill(s), Pharmacy: [facility] #[id number] topiramate 2020-0 Yes 25 mg = 1 Me moria 25 MG Oral 2-14 tab, PO, l Tablet 23:50: BID, # 60 Reece n [Topamax] 00 tab, 2 Refill(s), Pharmacy: [facility] #[id number] topiramate 2020-0 Yes 25 mg = 1 Me moria 25 MG Oral 2-14 tab, PO, l Tablet 23:50: BID, # 60 Reece n [Topamax] 00 tab, 2 Refill(s), Pharmacy: [facility] [id number] Aspirin 81 2020-0 Yes 81 mg = 1 Me moria MG Enteric 1-09 tab, PO, l Coated 23:31: Daily, # [place] Tablet 00 90 tab, 3 Refill(s) Aspirin [...] tab, PO, l Coated 23:31: Daily, # [place] Tablet 00 90 tab, 3 Refill(s) Aspirin 81 2020-0 Yes 81 mg = 1 Me moria MG Enteric - tab, PO, l Coated 23:31: Daily, # [place] Tablet 00 90 tab, 3 Refill(s) Aspirin 81 2020-0 Yes 81 mg = 1 Me moria MG Enteric - tab, PO, l Coated 23:31: Daily, # [place] Tablet 00 90 tab, 3 Refill(s) Aspirin 81 2020-0 Yes 81 mg = 1 Me moria MG Enteric - tab, PO, l Coated 23:31: Daily, # [place] Tablet 00 90 tab, 3 Refill(s) Aspirin 81 2020-0 Yes 81 mg = 1 Me moria MG Enteric - tab, PO, l Coated 23:31: Daily, # [place] Tablet 00 90 tab, 3 Refill(s) Aspirin 81 2020-0 Yes 81 mg = 1 Me moria MG Enteric - tab, PO, l Coated 23:31: Daily, # [place] Tablet 00 90 tab, 3 Refill(s) Aspirin 81 2020-0 Yes 81 mg = 1 Me moria MG Enteric - tab, PO, l Coated 23:31: Daily, # [place] Tablet 00 90 tab, 3 Refill(s) Aspirin 81 2020-0 Yes 81 mg = 1 Me moria MG Enteric - tab, PO, l Coated 23:31: Daily, # [place] Tablet 00 90 tab, 3 Refill(s) Aspirin 81 2020-0 Yes 81 mg = 1 Me moria MG Enteric - tab, PO, l Coated 23:31: Daily, # [place] Tablet 00 90 tab, 3 Refill(s) Aspirin [...] tab, PO, l Coated 23:31: Daily, # [place] Tablet 00 90 tab, 3 Refill(s) Aspirin 81 2020-0 Yes 81 mg = 1 Me moria MG Enteric -09 tab, PO, l Coated 23:31: Daily, # [place] Tablet 00 90 tab, 3 Refill(s) Aspirin 81 2020-0 Yes 81 mg = 1 Me moria MG Enteric - tab, PO, l Coated 23:31: Daily, # [place] Tablet 00 90 tab, 3 Refill(s) oxcarbazepi 2020-0 Yes 150 mg = 1 Memoria ne 150 MG 1-09 tab, PO, l Oral Tablet 23:05: Bedtime, # [place] [Trileptal] 00 30 tab, 3 Refill(s), Pharmacy: [facility] #[id number] oxcarbazepi 2020-0 Yes 150 mg = 1 Memoria ne 150 MG 1-09 tab, PO, l Oral Tablet 23:05: Bedtime, # [place] [Trileptal] 00 30 tab, 3 Refill(s), Pharmacy: [facility] #[id number] oxcarbazepi 2020-0 Yes 150 mg = 1 Memoria ne 150 MG -09 tab, PO, l Oral Tablet 23:05: Bedtime, # [place] [Trileptal] 00 30 tab, 3 Refill(s), Pharmacy: [facility] #[id number] oxcarbazepi 2020-0 Yes 150 mg = 1 Memoria ne 150 MG 1-09 tab, PO, l Oral Tablet 23:05: Bedtime, # [place] [Trileptal] 00 30 tab, 3 Refill(s), Pharmacy: [facility] #[id number] oxcarbazepi 2020-0 Yes 150 mg = 1 Memoria ne 150 MG 1-09 tab, PO, l Oral Tablet 23:05: Bedtime, # [place] [Trileptal] 00 30 tab, 3 Refill(s), Pharmacy: [facility] #[id number] oxcarbazepi 2020-0 Yes 150 mg = 1 Memoria ne 150 MG 1-09 tab, PO, l Oral Tablet 23:05: Bedtime, # [place] [Trileptal] 00 30 tab, 3 Refill(s), [id number] oxcarbazepi 2020-0 Yes 150 mg = 1 Memoria ne 150 MG 1-09 tab, PO, l Oral Tablet 23:05: Bedtime, # [place] [Trileptal] 00 30 tab, 3 Refill(s), [facility][id number] oxcarbazepi 2020-0 Yes 150 mg = 1 Memoria ne 150 MG 1-09 tab, PO, l Oral Tablet 23:05: Bedtime, # [place] [Trileptal] 00 30 tab, 3 Refill(s), [facility][id number] oxcarbazepi 2020-0 Yes 150 mg = 1 Memoria ne 150 MG 1-09 tab, PO, l Oral Tablet 23:05: Bedtime, # [place] [Trileptal] 00 30 tab, 3 Refill(s), [facility][id number] oxcarbazepi 2020-0 Yes 150 mg = 1 Memoria ne 150 MG 1-09 tab, PO, l Oral Tablet 23:05: Bedtime, # [place] [Trileptal] 00 30 tab, 3 Refill(s), [facility][id number] oxcarbazepi 2020-0 Yes 150 mg = 1 Memoria ne 150 MG 1-09 tab, PO, l Oral Tablet 23:05: Bedtime, # [place] [Trileptal] 00 30 tab, 3 Refill(s), [facility][id number] oxcarbazepi 2020-0 Yes 150 mg = 1 Memoria ne 150 MG 1-09 tab, PO, l Oral Tablet 23:05: Bedtime, # [place] [Trileptal] 00 30 tab, 3 Refill(s), [facility][id number] oxcarbazepi 2020-0 Yes 150 mg = 1 Memoria ne 150 MG 1-09 tab, PO, l Oral Tablet 23:05: Bedtime, # [place] [Trileptal] 00 30 tab, 3 Refill(s), [facility][id number] oxcarbazepi 2020-0 Yes 150 mg = 1 Memoria ne 150 MG 1-09 tab, PO, l Oral Tablet 23:05: Bedtime, # [place] [Trileptal] 00 30 tab, 3 Refill(s), Pharmacy: [facility] #[id number] oxcarbazepi 2020-0 Yes 150 mg = 1 Memoria ne 150 MG 1-09 tab, PO, l Oral Tablet 23:05: Bedtime, # [place] [Trileptal] 00 30 tab, 3 Refill(s), Pharmacy: [facility] #[id number] oxcarbazepi 2020-0 Yes 150 mg = 1 Memoria ne 150 MG 1-09 tab, PO, l Oral Tablet 23:05: Bedtime, # [place] [Trileptal] 00 30 tab, 3 Refill(s), Pharmacy: [facility] #[id number] oxcarbazepi 2020-0 Yes 150 mg = 1 Memoria ne 150 MG 1-09 tab, PO, l Oral Tablet 23:05: Bedtime, # [place] [Trileptal] 00 30 tab, 3 Refill(s), Pharmacy: [facility] #[id number] oxcarbazepi 2020-0 Yes 150 mg = 1 Memoria ne 150 MG 1-09 tab, PO, l Oral Tablet 23:05: Bedtime, # [place] [Trileptal] 00 30 tab, 3 Refill(s), Pharmacy: [facility] #[id number] oxcarbazepi 2020-0 Yes 150 mg = 1 Memoria ne 150 MG 1-09 tab, PO, l Oral Tablet 23:05: Bedtime, # [place] [Trileptal] 00 30 tab, 3 Refill(s), Pharmacy: [facility] #[id number] oxcarbazepi 2020-0 Yes 150 mg = 1 Memoria ne 150 MG 1-09 tab, PO, l Oral Tablet 23:05: Bedtime, # [place] [Trileptal] 00 30 tab, 3 Refill(s), Pharmacy: [facility] #[id number] atorvastati 2018- Yes 40 mg = 1 M emoria n 40 mg 2-11 tab, PO, l oral tablet 23:32: Daily, # Brendon monet 39 30 tab, 2 Refill(s), Pharmacy: [facility] #[id number] [employer] 2018-11 Yes 40 mg = 1 M emoria n 40 mg 2-11 tab, PO, l oral tablet 23:32: Daily, # He rmann 39 30 tab, 2 Refill(s), Pharmacy: [id number]-11 Yes 40 mg = 1 M emoria n 40 mg 2-11 tab, PO, l oral tablet 23:32: Daily, # [place] r[place] 39 30 tab, 2 Refill(s), Pharmacy: [facility] #[id number] [employer] 2018-11 Yes 40 mg = 1 M emoria n 40 mg 2-11 tab, PO, l oral tablet 23:32: Daily, # He rmann 39 30 tab, 2 Refill(s), Pharmacy: [facility] #[id number] [employer] 2018-11 Yes 40 mg = 1 M emoria n 40 mg 2-11 tab, PO, l oral tablet 23:32: Daily, # He r[place] 39 30 tab, 2 Refill(s), Pharmacy: [facility] #[id number] [employer] 2018-11 Yes 40 mg = 1 M emoria n 40 mg 2-11 tab, PO, l oral tablet 23:32: Daily, # He r[place] 39 30 tab, 2 Refill(s), Pharmacy: [facility] #[id number] [employer] 2018-11 Yes 40 mg = 1 M emoria n 40 mg 2-11 tab, PO, l oral tablet 23:32: Daily, # He r[place] 39 30 tab, 2 Refill(s), Pharmacy: [facility] #[id number] [employer] 2018-11 Yes 40 mg = 1 M emoria n 40 mg 2-11 tab, PO, l oral tablet 23:32: Daily, # He r[place] 39 30 tab, 2 Refill(s), Pharmacy: [facility] #[id number] [employer] 2018-11 Yes 40 mg = 1 M emoria n 40 mg 2-11 tab, PO, l oral tablet 23:32: Daily, # He rmann 39 30 tab, 2 Refill(s), Pharmacy: [facility][id number] [facility] 2018-11 Yes 40 mg = 1 M emoria n 40 mg 2-11 tab, PO, l oral tablet 23:32: Daily, # He rmann 39 30 tab, 2 Refill(s), Pharm[facility]: [facility][id number] [facility] Yes 40 mg = 1 M emoria n 40 mg 2-11 tab, PO, l oral tablet 23:32: Daily, # He rmann 39 30 tab, 2 Refill(s), Pharmacy: [facility] #[id number] [facility] 2018-11 Yes 40 mg = 1 M emoria n 40 mg 2-11 tab, PO, l oral tablet 23:32: Daily, # He rmann 39 30 tab, 2 Refill(s), Pharmacy: [facility] #[id number] [facility] 2018-11 Yes 40 mg = 1 M emoria n 40 mg 2-11 tab, PO, l oral tablet 23:32: Daily, # He rmann 39 30 tab, 2 Refill(s), Pharmacy: [facility] [employer] [facility][id number] [facility] 2018-11 Yes 40 mg = 1 M emoria n 40 mg 2-11 tab, PO, l oral tablet 23:32: Daily, # He rmann 39 30 tab, 2 Refill(s), Pharmacy: [facility] #[id number] [facility] 2018-11 Yes 40 mg = 1 M emoria n 40 mg 2-11 tab, PO, l oral tablet 23:32: Daily, # He rmann 39 30 tab, 2 Refill(s), Pharmacy: [facility] #[id number] [facility] 2018-11 Yes 40 mg = 1 M emoria n 40 mg 2-11 tab, PO, l oral tablet 23:32: Daily, # He rmann 39 30 tab, 2 Refill(s), Pharmacy: [facility][id number] [facility] 2018-11 Yes 40 mg = 1 M emoria n 40 mg 2-11 tab, PO, l oral tablet 23:32: Daily, # He rmann 39 30 tab, 2 Refill(s), Pharmacy: [facility][id number] [facility] 2018-11 Yes 40 mg = 1 M emoria n 40 mg 2-11 tab, PO, l oral tablet 23:32: Daily, # Brendon rmann 39 30 tab, 2 Refill(s), Pharmacy: [facility] #[id number] [employer] 2018-11 Yes 40 mg = 1 M emoria n 40 mg 2-11 tab, PO, l oral tablet 23:32: Daily, # Brendon rmann 39 30 tab, 2 Refill(s), Pharmacy: [facility][id number] [facility] Yes 40 mg = 1 M emoria n 40 mg 2-11 tab, PO, l oral tablet 23:32: Daily, # Brendon rmann 39 30 tab, 2 Refill(s), Pharmacy: [facility] #[id number] [facility] [place] 2018-11 Yes 25 mg = 1 Me moria 25 MG Oral 0-23 tab, PO, l Tablet 18:40: BID, # 60 Reece n [Topamax] 02 tab, 2 Refill(s), Pharmacy: [facility] #[id number] [facility] [place] 2018-11 Yes 25 mg = 1 Me moria 25 MG Oral 0-23 tab, PO, l Tablet 18:40: BID, # 60 Reece n [Topamax] 02 tab, 2 Refill(s), Pharmacy: [facility] #[id number] [facility] [place] 2018-11 Yes 25 mg = 1 Me moria 25 MG Oral 0-23 tab, PO, l Tablet 18:40: BID, # 60 Re[place] n [Topamax] 02 tab, 2 Refill(s), Pharmacy: [facility] #[id number] topiramate 2018-11 Yes 25 mg = 1 Me moria 25 MG Oral 0-23 tab, PO, l Tablet 18:40: BID, # 60 Re[place] n [Topamax] 02 tab, 2 Refill(s), Pharmacy: [facility] #[id number] topiramate 2018-11 Yes 25 mg = 1 Me moria 25 MG Oral 0-23 tab, PO, l Tablet 18:40: BID, # 60 [place] n [Topamax] 02 tab, 2 Refill(s), Pharmacy: [facility] #[id number] topiramate 2018-11 Yes 25 mg = 1 Me moria 25 MG Oral 0-23 tab, PO, l Tablet 18:40: BID, # 60 [place] [Topamax] 02 tab, 2 Refill(s), Pharmacy: [facility] [address] [place] [address] 2018-11 Yes 25 mg = 1 Me moria 25 MG Oral 0-23 tab, PO, l Tablet 18:40: BID, # 60 [place] [Topamax] 02 tab, 2 Refill(s), Pharmacy: [facility] [address] [place] [address] 2018-11 Yes 25 mg = 1 Me moria 25 MG Oral 0-23 tab, PO, l Tablet 18:40: BID, # 60 [place] n [Topamax] 02 tab, 2 Refill(s), Pharmacy: [facility] [address] [place] [address] 2018-11 Yes 25 mg = 1 Me moria 25 MG Oral 0-23 tab, PO, l Tablet 18:40: BID, # 60 [place] n [Topamax] 02 tab, 2 Refill(s), Pharmacy: [facility] [address] [place] [address] 2018-11 Yes 25 mg = 1 Me moria 25 MG Oral 0-23 tab, PO, l Tablet 18:40: BID, # 60 [place] n [Topamax] 02 tab, 2 Refill(s), Pharmacy: [facility] [address] [place] [address] 2018-11 Yes 25 mg = 1 Me moria 25 MG Oral 0-23 tab, PO, l Tablet 18:40: BID, # 60 [place] n [Topamax] 02 tab, 2 Refill(s), Pharmacy: [facility] [address] [place] [address] 2018-11 Yes 25 mg = 1 Me moria 25 MG Oral 0-23 tab, PO, l Tablet 18:40: BID, # 60 [place] [Topamax] 02 tab, 2 Refill(s), Pharmacy: [facility] [address] [place] [address] 2018-11 Yes 25 mg = 1 Me moria 25 MG Oral 0-23 tab, PO, l Tablet 18:40: BID, # 60 [place] n [Topamax] 02 tab, 2 Refill(s), Pharmacy: [facility] [address] [place] [address] 2018-11 Yes 25 mg = 1 Me moria 25 MG Oral 0-23 tab, PO, l Tablet 18:40: BID, # 60 [place] n [Topamax] 02 tab, 2 Refill(s), Pharmacy: [facility][id number] [facility] Yes 25 mg = 1 Me moria 25 MG Oral 0-23 tab, PO, l Tablet 18:40: BID, # 60 Re[place] n [Topamax] 02 tab, 2 Refill(s), [facility]: [facility][id number] [facility] Yes 25 mg = 1 Me moria 25 MG Oral 0-23 tab, PO, l Tablet 18:40: BID, # 60 Re[place] n [Topamax] 02 tab, 2 Refill(s), Pharmacy: [facility] #[id number] [facility] 2018[facility]11 Yes 25 mg = 1 Me moria 25 MG Oral 0-23 tab, PO, l Tablet 18:40: BID, # 60 Re[place] n [Topamax] 02 tab, 2 Refill(s), Pharmacy: [facility] #[id number] [facility] 2018[facility]11 Yes 25 mg = 1 Me moria 25 MG Oral 0-23 tab, PO, l Tablet 18:40: BID, # 60 Reece n [Topamax] 02 tab, 2 Refill(s), Pharmacy: [facility] #[id number] [facility] [place] 2018-11 Yes 25 mg = 1 Me moria 25 MG Oral 0-23 tab, PO, l Tablet 18:40: BID, # 60 Reece n [Topamax] 02 tab, 2 Refill(s), Pharmacy: [facility] #[id number] [facility] 2018[facility]11 Yes 25 mg = 1 Me moria 25 MG Oral 0-23 tab, PO, l Tablet 18:40: BID, # 60 Reece n [Topamax] 02 tab, 2 Refill(s), Pharmacy: [facility] #[id number] [facility] Yes 25 mg = 1 Me moria 25 MG Oral 8-21 tab, PO, l Tablet 15:45: Bedtime, # Mary nn [Topamax] 00 30 tab, 2 Refill(s), Pharmacy: [facility] #[id number] topiramate 2019-0 Yes 25 mg = 1 Me moria 25 MG Oral 8-21 tab, PO, l Tablet 15:45: Bedtime, # [place] nn [Topamax] 00 30 tab, 2 Refill(s), Pharmacy: [facility] #[id number] topiramate 2019-0 Yes 25 mg = 1 Me moria 25 MG Oral 8-21 tab, PO, l Tablet 15:45: Bedtime, # [place] nn [Topamax] 00 30 tab, 2 Refill(s), Pharmacy: [facility] #[id number] topiramate 2019-0 Yes 25 mg = 1 Me moria 25 MG Oral 8-21 tab, PO, l Tablet 15:45: Bedtime, # [place] nn [Topamax] 00 30 tab, 2 Refill(s), Pharmacy: [facility] #[id number] topiramate 2019-0 Yes 25 mg = 1 Me moria 25 MG Oral 8-21 tab, PO, l Tablet 15:45: Bedtime, # [place] nn [Topamax] 00 30 tab, 2 Refill(s), Pharmacy: [facility] #[id number] topiramate 2019-0 Yes 25 mg = 1 Me moria 25 MG Oral 8-21 tab, PO, l Tablet 15:45: Bedtime, # [place] nn [Topamax] 00 30 tab, 2 Refill(s), Pharmacy: [facility] #[id number] topiramate 2019-0 Yes 25 mg = 1 Me moria 25 MG Oral 8-21 tab, PO, l Tablet 15:45: Bedtime, # [place] nn [Topamax] 00 30 tab, 2 Refill(s), Pharmacy: [facility] #[id number] topiramate 2019-0 Yes 25 mg = 1 Me moria 25 MG Oral 8-21 tab, PO, l Tablet 15:45: Bedtime, # [place] nn [Topamax] 00 30 tab, 2 Refill(s), Pharmacy: [facility] #[id number] topiramate 2019-0 Yes 25 mg = 1 Me moria 25 MG Oral 8-21 tab, PO, l Tablet 15:45: Bedtime, # [place] nn [Topamax] 00 30 tab, 2 Refill(s), [facility][id number] topiramate 2019-0 Yes 25 mg = 1 Me moria 25 MG Oral 8-21 tab, PO, l Tablet 15:45: Bedtime, # [place] nn [Topamax] 00 30 tab, 2 Refill(s), Pharmacy: [facility] #[id number] topiramate 2019-0 Yes 25 mg = 1 Me moria 25 MG Oral 8-21 tab, PO, l Tablet 15:45: Bedtime, # [place] nn [Topamax] 00 30 tab, 2 Refill(s), [facility][id number] topiramate 2019-0 Yes 25 mg = 1 Me moria 25 MG Oral 8-21 tab, PO, l Tablet 15:45: Bedtime, # [place] nn [Topamax] 00 30 tab, 2 Refill(s), Pharmacy: [facility] #[id number] topiramate 2019-0 Yes 25 mg = 1 Me moria 25 MG Oral 8-21 tab, PO, l Tablet 15:45: Bedtime, # [place] nn [Topamax] 00 30 tab, 2 Refill(s), [facility][id number] topiramate 2019-0 Yes 25 mg = 1 Me moria 25 MG Oral 8-21 tab, PO, l Tablet 15:45: Bedtime, # Mary nn [Topamax] 00 30 tab, 2 Refill(s), Pharmacy: [facility] #[id number] topiramate 2019-0 Yes 25 mg = 1 Me moria 25 MG Oral 8-21 tab, PO, l Tablet 15:45: Bedtime, # Mary nn [Topamax] 00 30 tab, 2 Refill(s), [facility][id number] topiramate 2019-0 Yes 25 mg = 1 Me moria 25 MG Oral 8-21 tab, PO, l Tablet 15:45: Bedtime, # Mary nn [Topamax] 00 30 tab, 2 Refill(s), [facility][id number] topiramate 2019-0 Yes 25 mg = 1 Me moria 25 MG Oral 8-21 tab, PO, l Tablet 15:45: Bedtime, # Mary nn [Topamax] 00 30 tab, 2 Refill(s), Pharmacy: [facility] #[id number] topiramate 2019-0 Yes 25 mg = 1 Me moria 25 MG Oral 8-21 tab, PO, l Tablet 15:45: Bedtime, # Mary nn [Topamax] 00 30 tab, 2 Refill(s), Pharmacy: [facility] #[id number] topiramate 2019-0 Yes 25 mg = 1 Me moria 25 MG Oral 8-21 tab, PO, l Tablet 15:45: Bedtime, # Mary nn [Topamax] 00 30 tab, 2 Refill(s), Pharmacy: [facility] #[id number] topiramate 2019-0 Yes 25 mg = 1 Me moria 25 MG Oral 8-21 tab, PO, l Tablet 15:45: Bedtime, # Mary nn [Topamax] 00 30 tab, 2 Refill(s), Pharmacy: [facility] #[id number] atorvastati 2018-0 Yes PO, Daily, Memoria n [...] tab, PO, l tablet, 15:00: Q6H, 0 [place] Refill(s) release gabapentin 0 Yes 600 mg, [...] tab, PO, l Tablet 15:00: Q8H, 0 [place] [Zofran] Refill(s) Hydroxyzine 2019- Yes 25 mg [...] tab, PO, l tablet, 15:00: Q6H, 0 [place] Refill(s) release gabapentin 2019-0 Yes 600 mg, [...] tab, PO, l tablet, 15:00: Q6H, 0 [place] 00 Refill(s) release gabapentin 2019-0 Yes 600 [...] tab, PO, l Tablet 15:00: Q8H, 0 [place] [Zofran] 00 Refill(s) Hydroxyzine 20190 Yes 25 [...] Immunizations Ordered Filled Immunization Date Status Comments [facility] e Immunization Name Name SARS-COV-2 COVID-19 2021-04-06 Completed Unive rsity of MODERNA VACCINE 00:00:00 [facility] SARS-COV-2 COVID-19 2021-04-06 Completed Unive rsity of MODERNA VACCINE 00:00:00 [facility] SARS-COV-2 COVID-19 2021-04-06 Completed Unive rsity of MODERNA VACCINE 00:00:00 [facility] SARS-COV-2 COVID-19 2021-04-06 Completed Unive rsity of MODERNA VACCINE 00:00:00 [facility] SARS-COV-2 COVID-19 2021-04-06 Completed Unive rsity of MODERNA VACCINE 00:00:00 [facility] [id number]-[facility] 2021-04-06 Completed Memor ial [place] [id number]-[id number]< 00:00:00 sup>1</sup> [id number]-[facility] 2021-04-06 Completed Memor ial [place] RNA-1273vaxMODERNA< 00:00:00 sup>1</sup> QVQL-ZuN-0JPMAE-[facility] 2021-04-06 Completed [facility] [place] RNA-1273vaxMODERNA< 00:00:00 sup>1</sup> LRDC-GgS-1BWADG-[facility] 2021-04-06 Completed [facility] [place] RNA-1273vaxMODERNA< 00:00:00 sup>1</sup> VRQX-EaN-8AKSAZ-[facility] 2021-04-06 Completed [facility] [place] RNA-1273vaxMODERNA< 00:00:00 sup>1</sup> KYBC-TqF-6MNBQD-[facility] 2021-04-06 Completed [facility] [place] RNA-1273vaxMODERNA< 00:00:00 sup>1</sup> VWOP-XfM-2HAJZD-19 2021-04-06 Completed [facility] [place] RNA-1273vaxMODERNA< 00:00:00 sup>1</sup> OAPQ-IyZ-4HWGTN-[facility] 2021-04-06 Completed [facility] [place] RNA-1273vaxMODERNA< 00:00:00 sup>1</sup> SBFP-UuU-7OQCVT- 2021-04-06 Completed [facility] [place] RNA-1273vaxMODERNA< 00:00:00 sup>1</sup> JRNM-LpS-0IQOAH-19 2021-04-06 Completed [facility] [place] RNA-1273vaxMODERNA< 00:00:00 sup>1</sup> OUIN-IdA-0YSVWN- 2021-04-06 Completed [facility] [place] RNA-1273vaxMODERNA< 00:00:00 sup>1</sup> JTTL-PxP-2TCWKM- 2021-04-06 Completed [facility] [place] RNA-1273vaxMODERNA< 00:00:00 sup>1</sup> GTEW-BnL-2WTXVR-[facility] 2021-04-06 Completed [facility] [place] RNA-1273vaxMODERNA< 00:00:00 sup>1</sup> IUWH-IdP-5HILHC-[facility] 2021-04-06 Completed [facility] [place] RNA-1273vaxMODERNA< 00:00:00 sup>1</sup> IAMI-KaA-6BELUH- 2021-04-06 Completed [facility] [place] RNA-1273vaxMODERNA< 00:00:00 sup>1</sup> FNJD-SkD-5WJBFN-[facility] 2021-04-06 Completed [facility] [place] RNA-1273vaxMODERNA< 00:00:00 sup>1</sup> DXAY-DfT-6JRVIO- 2021-04-06 Completed [facility] [place] RNA-1273vaxMODERNA< 00:00:00 sup>1</sup> RGKD-KkL-2ZZMBU- 2021-04-06 Completed [facility] [place] RNA-1273vaxMODERNA< 00:00:00 sup>1</sup> NQTA-QsP-1OHASW-[facility] 2021-04-06 Completed [facility] [place] RNA-1273vaxMODERNA< 00:00:00 sup>1</sup> AJFT-RlE-0NUHMQ-19m 2021-04-06 Completed Olimpiaindira Gay RNA-1273vaxMODERNA< 00:00:00 sup>1</sup> SARS-COV-2 COVID-19 2021-03-12 Completed Unive rsity of MODERNA VACCINE 00:00:00 [facility] SARS-COV-2 COVID-19 2021-03-12 Completed Unive rsity of MODERNA VACCINE 00:00:00 [facility] SARS-COV-2 COVID-19 2021-03-12 Completed Unive rsity of MODERNA VACCINE 00:00:00 [facility] SARS-COV-2 COVID-19 2021-03-12 Completed Unive rsity of MODERNA VACCINE 00:00:[address] [facility] SARS-COV-2 COVID-19 2021-03-12 Completed Unive rsity of MODERNA VACCINE 00:00:[address] [facility] Influenza Virus 2020-11-28 Completed Universit y of Vaccine (3+ yrs) 00:00:[address] [facility] Influenza Virus 2020-11-28 Completed Universit y of Vaccine (3+ yrs) 00:00:[address] [facility] Influenza Virus 2020-11-28 Completed Universit y of Vaccine (3+ yrs) 00:00:[address] [facility] Influenza Virus 2020-11-28 Completed Universit y of Vaccine (3+ yrs) 00:00:[address] [facility] Influenza Virus 2020-11-28 Completed Universit y of Vaccine (3+ yrs) 00:00:[address] [facility] Influenza Virus 2017-10-06 Completed Universit y of Vaccine Quad IM, 00:00:00 [facility] dical Preserv and ABX Branch Free 2-64 YRS Pneumococcal 13 2017-10-06 Completed Universit y of Conjugate, PCV13 00:00:00 [facility] dical (Prevnar 13) Branch Influenza Virus 2017-10-06 Completed Universit y of Vaccine Quad IM, 00:00:00 [facility] dical Preserv and ABX Branch Free 2-64 YRS Pneumococcal 13 2017-10-06 Completed Universit y of Conjugate, PCV13 00:00:00 [facility] dical (Prevnar 13) Branch Influenza Virus 2017-10-06 Completed Universit y of Vaccine Quad IM, 00:00:00 [place] [facility] dical Preserv and ABX Branch Free 2-64 YRS Pneumococcal 13 2017-10-06 Completed Universit y of Conjugate, PCV13 00:00:00 [facility] dical (Prevnar 13) Branch Influenza Virus 2017-10-06 Completed Universit y of Vaccine Quad IM, 00:00:00 [facility] dical Preserv and ABX Branch Free 2-64 YRS Pneumococcal 13 2017-10-06 Completed Universit y of Conjugate, PCV13 00:00:00 [facility] dical (Prevnar 13) Branch Influenza Virus 2017-10-06 Completed Universit y of Vaccine Quad IM, 00:00:00 [facility] dical Preserv and ABX Branch Free 2-64 YRS Pneumococcal 13 2017-10-06 Completed Universit y of Conjugate, PCV13 00:00:00 [facility] dical (Prevnar 13) [place] Vital Signs Vital Name Observation Time Observation Value Comments Source Systolic blood 2021-08-14 15:39:00 130 mm[Hg] [facility] Diastolic blood 2021-08-14 15:39:00 81 mm[Hg] [facility] Heart rate 2021-08-14 15:39:00 76 /min [facility] Body temperature 2021-08-14 15:39:00 37 [facility] Respiratory rate 2021-08-14 15:39:00 18 /min [facility] height 2021-08-14 15:39:00 162.6 cm [facility] Body weight 2021-08-14 15:39:00 53.933 kg [facility] BMI 2021-08-14 15:39:00 20.41 kg/m2 [facility] Oxygen saturation in 2021-08-14 15:39:00 100 /min [facility] Arterial blood by [facility] Pulse oximetry Branch Systolic (mm Hg) 2021-04-08 14:16:00 Rao Gay Diastolic (mm Hg) 2021-04-08 14:16:00 [facility] jaswinder Gay Heart Rate 2021-04-08 14:16:00 [facility] Respitory Rate 2021-04-08 14:16:00 [facility] [place] Height 2021-04-08 14:16:00 162.56 cm [facility] Weight 2021-04-08 14:16:00 [facility] BMI Calculated 2021-04-08 14:16:00 [facility] Systolic (mm Hg) 2020-12-22 20:47:00 Rao [facility] [place] Diastolic (mm Hg) 2020-12-22 20:47:00 [facility] Height 2020-12-22 20:47:00 162.56 cm [facility] [place] Weight 2020-12-22 20:47:00 [facility] BMI Calculated 2020-12-22 20:47:00 [facility] Systolic (mm Hg) 2020-07-31 18:42:00 Rao [facility] [place] Diastolic (mm Hg) 2020-07-31 18:42:00 [facility] [place] Heart Rate 2020-07-31 18:42:00 [facility] Respitory Rate 2020-07-31 18:42:00 [facility] [place] Height 2020-07-31 18:42:00 162.56 cm [facility] Weight 2020-07-31 18:42:00 [facility] [place] BMI Calculated 2020-07-31 18:42:00 [facility] [place] Temperature Oral (F) 2020-07-31 18:42:00 96.9 F [facility] [place] Systolic (mm Hg) 2020-01-22 17:49:00 Rao [facility] Diastolic (mm Hg) 2020-01-22 17:49:00 [facility] Heart Rate 2020-01-22 17:49:00 [facility] [place] Respitory Rate 2020-01-22 17:49:00 [facility] [place] Height 2020-01-22 17:49:00 162.56 cm [facility] Weight 2020-01-22 17:49:00 [facility] BMI Calculated 2020-01-22 17:49:00 [facility] [place] Systolic (mm Hg) 2020-01-11 21:53:00 Rao rial [place] Diastolic (mm Hg) 2020-01-11 21:53:00 [facility] [place] Heart Rate 2020-01-11 21:53:00 [facility] Height 2020-01-11 21:53:00 162.56 cm [facility] [place] Weight 2020-01-11 21:53:00 [facility] BMI Calculated 2020-01-11 21:53:00 [facility] [place] Systolic (mm Hg) 2019-12-06 22:16:00 Rao rial [place] Diastolic (mm Hg) 2019-12-06 22:16:00 [facility] Heart Rate 2019-12-06 22:16:00 [facility] Respitory Rate 2019-12-06 22:16:00 [facility] Height 2019-12-06 22:16:00 162.56 cm [facility] [place] Weight 2019-12-06 22:16:00 [facility] [place] BMI Calculated 2019-12-06 22:16:00 [facility] [place] BMI Calculated 2019-11-09 17:41:00 [facility] [place] Height 2019-11-09 17:41:00 162.56 cm [facility] [place] Weight 2019-11-09 17:41:00 [facility] [place] Systolic (mm Hg) 2019-09-19 18:12:00 Rao [facility] Diastolic (mm Hg) 2019-09-19 18:12:00 [facility] [place] Heart Rate 2019-09-19 18:12:00 [facility] [place] Respitory Rate 2019-09-19 18:12:00 [facility] [place] Height 2019-09-19 18:12:00 162.56 cm [facility] Weight 2019-09-19 18:12:00 [facility] BMI Calculated 2019-09-19 18:12:00 [facility] [place] Systolic (mm Hg) 2019-08-23 19:05:00 Rao [facility] [place] Diastolic (mm Hg) 2019-08-23 19:05:00 [facility] [place] Heart Rate 2019-08-23 19:05:00 [facility] [place] Respitory Rate 2019-08-23 19:05:00 [facility] [place] Height 2019-08-23 19:05:00 162.56 cm [facility] [place] Weight 2019-08-23 19:05:00 [facility] BMI Calculated 2019-08-23 19:05:00 [facility] [place] Systolic (mm Hg) 2019-07-18 14:57:00 Rao rial [...] OF BENEFITS 2021-08-14 15:11:27 Doctor Unassigned, No [facility] Arthroplasty [facility] [place] Laminectomy [facility] Encounters Start End Encounter Admission Attending Care Care Encounter Source Date/Time Date/Time Type Type Clinicians Facility Department ID 2021-06-08 Inpatient EL Eulogio, [facility] DAYS [id number] [facility] 10:30:00 [place] [id number] [facility] 2021-06-05 Inpatient EL Eulogio, [facility] DAYS [id number] [facility] 11:30:00 [place] [id number] [facility] 2021-05-19 Inpatient Eulogio, [facility] DAYS [id number] [facility] 07:30:00 [place] [id number] [facility] 2021-05-15 Inpatient EL Eulogio, [facility] DAYS [id number] [facility] 14:00:00 [place] [id number] [facility] 2022-08-20 2022-08-20 Outpatient TONY OLGUIN [facility] [id number] Univers 10:30:00 10:30:00 [id number] [facility] 2022-08-20 2022-08-20 Outpatient TONY OLGUIN [facility] [id number] [facility] 10:30:00 10:30:00 [facility] 2021-08-31 2021-08-31 Outpatient EULOGIO, [facility] [id number] [address] [place] 00:00:00 00:00:00 [place] [address] 2021-08-27 2021-08-27 Outpatient EULOGIO, [facility] [id number] 878 [place] 00:00:00 00:00:00 [place] [address] 2021-08-24 2021-08-24 Outpatient EULOGIO, [facility] [id number] 878 [place] 00:00:00 00:00:00 [place] 384 [facility] i 2021-08-20 2021-08-20 Outpatient EULOGIO, [facility] [id number] 878 [place] 00:00:00 00:00:00 [place] 342 [facility] i 2021-08-19 2021-08-19 Outpatient EULOGIO, [facility] [id number] 293 [place] 00:00:00 00:00:00 [place] 343 Method i 2021-08-14 2021-08-14 Office Tony Das [facility] [id number] [facility] 10:12:38 10:59:24 Visit Cezar Lopez [id number] it y of [facility] [id number] [facility] [id number] [address] 2021-08-14 2021-08-14 Outpatient R TONY DAS [facility] [id number] [facility] 10:15:00 10:15:00 ity of [facility] 2021-08-14 2021-08-14 Orders Doctor [place] [id number] [facility] 00:00:00 00:00:00 Only Unassigned, LISA [id number] ity of [facility] [id number] [facility] [id number] [address] 2021-08-10 2021-08-10 Outpatient EULOGIO, [facility] [id number] 878 [place] 00:00:00 00:00:00 [place] 230 [facility] i 2021-08-06 2021-08-06 Outpatient EULOGIO, [facility] [id number] 878 [place] 00:00:00 00:00:00 [place] 205 Method i 2021-07-30 2021-07-30 Outpatient EULOGIO, [facility] [id number] 877 [place] 00:00:00 00:00:00 [place] 805 Method i 2021-07-27 2021-07-27 Outpatient EULOGIO, [facility] [id number] [place] 00:00:00 00:00:00 [place] 774 Method i 2021-07-23 2021-07-23 Outpatient EULOGIO, [facility] [id number] [place] 00:00:00 00:00:00 [place] 727 Method i 2021-07-20 2021-07-20 Outpatient EULOGIO, [facility] [id number] 293 [place] 00:00:00 00:00:00 [place] 774 Method i 2021-07-09 2021-07-09 Outpatient EULOGIO, [facility] [id number] [place] 00:00:00 00:00:00 [place] 643 Method i 2021-07-08 2021-07-08 Outpatient EULOGIO, [facility] [id number] [place] 00:00:00 00:00:00 [place] 592 Method i 2021-07-02 2021-07-02 Outpatient EULOGIO, [facility] [id number] [place] 00:00:00 00:00:00 [place] 982 Method i 2021-06-23 2021-06-23 Outpatient EULOGIO, [facility] [id number] 138 [place] 00:00:00 00:00:00 [place] 244 Method i 2021-06-09 2021-06-11 Inpatient RODNEY Patterson, [facility]ACL MEDI.01 [id number] [facility] 16:03:00 15:30:00 Reji [id number] [facility] 2021-06-09 2021-06-09 Outpatient [facility] Be[facility] [id number] [facility] 16:08:00 16:08:00 [id number] [facility] 2021-04-08 2021-04-09 Outpatient nullFlavo MNA [id number] [facility] 14:00:00 04:59:59 r Neurology 16 l Elvin Gay 2020-12-26 2020-12-28 Outside nullFlavo MNA [id number] [facility] 17:32:20 05:59:59 Medical r Neurology 00 l Records Elvin Gay 2020-12-22 2020-12-23 Outpatient nullFlavo MNA [id number] [facility] 20:30:00 05:59:59 r Neurology 15 l Elvin Gay 2020-12-04 2020-12-04 Ambulatory nullFlavo MNA [id number] [facility] 19:15:00 19:15:00 Pre-Reg r Neurology 14 l Elvin Rashidann 2020-09-30 2020-09-30 Outpatient EULOGIO, [facility] [id number] 573 [place] 00:00:00 00:00:00 [place] Georgiana Robledo i 2020-07-31 2020-08-01 Outpatient nullFlavo MNA [id number] [facility] 18:15:00 04:59:59 r Neurology 13 l [facility] 2020-07-29 2020-07-29 Ambulatory nullFlavo MNA [id number] [facility] 16:15:00 16:15:00 Pre-Reg r Neurology 12 l [facility] 2020-06-06 2020-06-06 Ambulatory nullFlavo MNA [id number] [facility] 18:00:00 18:00:00 Pre-Reg r Neurology 11 l [facility] 2020-03-12 2020-03-13 Outpatient nullFlavo MNA [id number] [facility] 18:45:00 04:59:59 r Neurology 09 l [place] 2020-01-22 2020-01-23 Outpatient nullFlavo MNA [id number] [facility] 17:45:00 05:59:59 r Neurology 10 l [facility] 2020-01-11 2020-01-12 Outpatient nullFlavo MNA [id number] [facility] 20:15:00 05:59:59 r Neurology 08 l [place] 2020-01-11 2020-01-11 Ambulatory nullFlavo MNA [id number] [facility] 20:15:00 20:15:00 Pre-Reg r Neurology 07 l [facility] 2019-12-06 2019-12-07 Outpatient nullFlavo MNA [id number] [facility] 22:00:00 05:59:59 r Neurology 06 l [facility] 2019-12-05 2019-12-05 Ambulatory nullFlavo MNA [id number] [facility] 14:15:00 14:15:00 Pre-Reg r Neurology 05 l [facility] 2019-11-16 2019-11-16 Ambulatory nullFlavo MNA [id number] [facility] 19:00:00 19:00:00 Pre-Reg r Neurology 03 l [place] 2019-11-09 2019-11-10 Outpatient nullFlavo MNA [id number] [facility] 17:30:00 05:59:59 r Neurology 04 l [facility] 2019-09-19 2019-09-20 Outpatient nullFlavo MNA [id number] [facility] 18:00:00 04:59:59 r Neurology 02 l Elvin Gay 2019-08-23 2019-08-24 Outpatient nullFlavo MNA [id number] [facility] 18:30:00 04:59:59 r Neurology 01 l Elvin Gay 2019-07-18 2019-07-19 Outpatient nullFlavo MNA [id number] [facility] 14:15:00 04:59:59 r Neurology 00 l Elvin Gay Results Test Description Test Time Test Comments Results Result Comments Source INFECTION CONTROL PROFILE 2021-06-13 18:10:00 Test Item Value Reference Range Interpretation Comme nts HEPATITIS C RNA BY Negative Negative Negative: HCV RNA Not PCR-QUAL (test code = Detect edPerformed At: BN HCVRNAPCR) [facility] [id number] [facility], [place] [id number] ra Danielle SALINAS Ph:[phone] AG HEPATITIS B SURFACE NON REACTIVE INDEX NonReactive (test code = HBSAG) AB HIV 1 2 (test code NONREACTIVE INDEX NONREACTIVE = ATP68ZL) HIV 1/2 RAPID SCREEN NONREACTIVE NONREACTIVE Critic al result called to (test code = DKK80LVH) TED BROTHERS RN/Foreign ColonLAB.UN at 165 9 06/09/21Nmy arcos back resut and tech confir med it's correct? Y AG HIV1 P24 (test code NONREACTIVE NONREACTIVE = BJM8Y96) BASIC METABOLIC [id number] 07:47:00 Test Item Value Reference Range Interpretation [...] code = 9.0 mg/dL 8.0-10.5 N CA) [id number] 07:47:00 Test Item Value Reference Range Interpretation Comments MAGNESIUM (test code = MAG) 1.91 mg/dL 1.80-2.40 N CBC W/AUTO [id number] 07:13:00 Test Item Value Reference Range Interpretation [...] (test NO code = MDIFF) INFECTION CONTROL [id number] 17:05:00 Test Item Value Reference Range Interpretation Comments HEPATITIS C RNA BY PCR-QUAL (test code = HCVRNAPCR) AG HEPATITIS B NON REACTIVE INDEX NonReactive SURFACE (test code = HBSAG) AB HIV 1 2 (test NONREACTIVE INDEX NONREACTIVE code = TVA12VE) HIV 1/2 RAPID NONREACTIVE NONREACTIVE Critical resu lt SCREEN (test code called to KEHINDE = SPA58SRF) ANGELA BROTHERS/Riya brewer G.LAB.UN at 165 9 06/09/21Nurse read back resut and tech confirmed it's correct? Y AG HIV1 P24 (test NONREACTIVE NONREACTIVE code = AEK8Y47) INFECTION CONTROL [id number] 17:01:00 Test Item Value Reference Range Interpretation Comments HEPATITIS C RNA BY PCR-QUAL (test code = HCVRNAPCR) AG HEPATITIS B INDEX NonReactive SURFACE (test code = HBSAG) AB HIV 1 2 (test INDEX NONREACTIVE code = HGA43CZ) HIV 1/2 RAPID SCREEN NONREACTIVE NONREACTIVE Critic al result (test code = called to TED Longoria QJA01FNG) ANGELA BROTHERS/Riya brewer G.LAB.UN at 165 9 06/09/21Nurse r ead back resut and tech confirmed it's correct? Y AG HIV1 P24 (test NONREACTIVE NONREACTIVE code = ZLF6D86) COVID 19 Asymptomatic IH [id number] 13:43:00 Test Item Value Reference Range Interpretation [...] waivedcomplexit y tests. - XR CHEST 2 [id number] 13:06:00 [facility] 1965 Sex: F FAX: Dennis Graves MD [phone] [place]: St: PRE FAX: Beverly Cartagena MD [phone] FAX: Katherine Ma [facility] : 1965 Age/S: 55/F [address] [place] [address] Unit #: [id number] Loc: FLAVIO Rueda [address] Phys: Katherine Ma NP Acct: [id number] Dis Date: Status: PRE SDC PHONE #: [phone] Exam Date: 06/08/2021 1143 FAX #: [phone] Reason: PREOP EXAMS: CPT CODE: [id number] XR CHEST 2 V 17789 Clinical Indication: Preoperative evaluation. Comparison: 03/08/2019. Impression: Chest, 2 views. No consolidation, pleural effusion, or pneumothorax. Cardiac silhouette is of normal size. No acute osseous abnormality. Thoracic spinal stimulating device is in place. SL: [id number] at 1306 Reported and signed by: Brian Mendes M.D. CC: Dennis Chaves MD; Beverly Cartagena MD; Katherine Ma NP Technologist: RT Milly(Tasia) Trnscrd Date/Time/By: 06/08/2021 (7415) : By: [email or web address] Orig Print D/T: S: 06/08/2021 (5907) PAGE 1 Signed ReportBASIC METABOLIC [id number] 11:59:00 Test Item Value Reference Range Interpretation [...] 8.9 mg/dL 8.0-10.5 N CA) CBC W/AUTO [id number] 11:55:00 Test Item Value Reference Range Interpretation [...] code NO = MDIFF) AFB CULTURE + [id number] 12:03:00 Test Item Value Reference Range Interpretation Comments CULTURE (BEAKER) (test No acid-fast bacilli code = 1095) isolated in 42 days AFB SMEAR (BEAKER) No acid fast bacilli (test code = 994) seen FUNGUS CULTURE + [id number] 18:46:00 Test Item Value Reference Range Interpretation Comments CULTURE (BEAKER) A 1+ Jo-Ann albicans (test code = 1095) FUNGUS SMEAR No fungi seen (BEAKER) (test code = 1406) MISCELLANEOUS LAB [id number] 07:43:00 Test Item Value Reference Range Interpretation Comments SCAN RESULT (test code = 9690521) CBC W/PLT COUNT & AUTO [id number] 11:31:00 Test Item Value Reference Range Interpretation [...] PERCENT (BEAKER) (test code = 2801) POCT-GLUCOSE [id number] 08:15:00 Test Item Value Reference Range Interpretation Comments POC-GLUCOSE METER 87 mg/dL 70-110 : TESTED A T [facility] 6720 (BEAKER) (test code = [place], 1538) 74140: Shoe Repairer Helper/Techni theo ID = [id number] for GINNY PULIDO [id number] 08:08:00 Test Item Value Reference Range Interpretation Comments MAGNESIUM (BEAKER) 1.6 mg/dL 1.6-2.6 Specimen slightly (test code = 627) hemolyzed COMPREHENSIVE METABOLIC [id number] 08:08:00 Test Item Value Reference Range Interpretation [...] NOT APPLICABLE FOR DIALYSIS PATIEN TS. POCT-GLUCOSE [id number] 23:32:00 Test Item Value Reference Range Interpretation Comments POC-GLUCOSE METER 98 mg/dL 70-110 : TESTED A T [facility] 6720 (BEAKER) (test code = LIV MUNIZ, 1538) 17975: Shoe Repairer Helper/Techni theo ID = [id number] for PATEL TEJADA POCT-GLUCOSE [id number] 17:52:00 Test Item Value Reference Range Interpretation Comments POC-GLUCOSE METER 88 mg/dL 70-110 : TESTED A T [facility] 6720 (BEAKER) (test code = LIV Dozier [facility], 1538) 56429: Shoe Repairer Helper/Techni theo ID = [id number] for DOBB INS, ZAK POCT-GLUCOSE [id number] 11:53:00 Test Item Value Reference Range Interpretation Comments POC-GLUCOSE METER 161 mg/dL 70-110 H : TESTED A T [facility] 6720 (BEAKER) (test code = LIV Dozier [facility], 1538) 76370: Shoe Repairer Helper/Techni theo ID = [id number] for DO BBINS, ZAK BRONCHIAL CULTURE + GRAM [id number] 10:38:00 Test Item Value Reference Range Interpretation Comments CULTURE (BEAKER) (test See comment code = 1095) GRAM STAIN RESULT 2+ White blood cells (BEAKER) (test code = seen 1123) GRAM STAIN RESULT No organisms seen (BEAKER) (test code = 937899) 1+ YeastRAD, CHEST, 1 VIEW, NON [id number] 08:59:00Reason for exam:- >endotracheal intubationShould this be [...] MDReport Verified Date/Time: 10/14/2019 08:59:12 Reading Location: [address] Transitional Reading Room [id number] 08:38:00 Test Item Value Reference Range Interpretation Comments MAGNESIUM (BEAKER) 2.0 mg/dL 1.6-2.6 Specimen slightly (test code = 627) hemolyzed COMPREHENSIVE METABOLIC [id number] 08:38:00 Test Item Value Reference Range Interpretation [...] PATIEN TS. CBC W/PLT COUNT & AUTO [id number] 08:23:00 Test Item Value Reference Range Interpretation [...] PERCENT (BEAKER) (test code = 2801) POCT-GLUCOSE [id number] 07:07:00 Test Item Value Reference Range Interpretation Comments POC-GLUCOSE METER 84 mg/dL 70-110 : TESTED A T [facility] 6720 (BEAKER) (test code = [place], 1538) 61117: Shoe Repairer Helper/Techni theo ID = [id number] for Will iams, Kamille BLOOD GAS, [id number] 04:38:00 Test Item Value Reference Range Interpretation [...] (test code = 1819) 36.0 % POCT-GLUCOSE [id number] 01:19:00 Test Item Value Reference Range Interpretation Comments POC-GLUCOSE METER 152 mg/dL 70-110 H : TESTED A T [facility] 6720 (BEAKER) (test code = [facility], 153) 57021: Shoe Repairer Helper/Techni theo ID = [id number] for Kamille Garcia BLOOD [id number] 19:01:00 Test Item Value Reference Range Interpretation Comments CULTURE (BEAKER) (test No growth in 5 days code = 1095) POCT-GLUCOSE [id number] 18:11:00 Test Item Value Reference Range Interpretation Comments POC-GLUCOSE METER 82 mg/dL 70-110 : TESTED A T [facility] 6720 (BEAKER) (test code = [facility] Riiid [facility], 153) 30008: Shoe Repairer Helper/Techni theo ID = [id number] for DOBB INS, ZAK POCT-GLUCOSE [id number] 12:34:00 Test Item Value Reference Range Interpretation Comments POC-GLUCOSE METER 87 mg/dL 70-110 : TESTED A T [facility] 6720 (BEAKER) (test code = [facility] Riiid [facility], 153) 86830: Shoe Repairer Helper/Techni theo ID = [id number] for SAND ERS, GIDEON CBC W/PLT COUNT & AUTO [id number] 09:13:00 Test Item Value Reference Range Interpretation [...] 0-1 PERCENT (BEAKER) (test code = 2801) [id number] 06:55:00 Test Item Value Reference Range Interpretation Comments MAGNESIUM (BEAKER) (test code = 1.8 mg/dL 1.6-2.6 627) COMPREHENSIVE METABOLIC [id number] 06:55:00 Test Item Value Reference Range Interpretation [...] APPLICABLE FOR DIALYSIS PATIEN TS. BLOOD GAS, [id number] 06:41:00 Test Item Value Reference Range Interpretation [...] 28.0 % RAD, CHEST, 1 VIEW, NON [id number] 04:40:00Reason for exam:->endotracheal intubationShould this be performed [...] changes of the left clavicle.. Signed: [facility] Verified Date/Time: 10/13/2019 04:40:52 POCT-GLUCOSE METER 2019-10-13 00:24:00 Test Item Value Reference Range Interpretation Comments POC-GLUCOSE METER 107 mg/dL 70-110 : TESTED A T [facility] 6720 (BEAKER) (test code = [place], 1538) 45412: Shoe Repairer Helper/Techni theo ID = [id number] for Dianna Wetzel RAD, MANDIBLE, MIN 4 [id number] 17:22:00Reason for exam:->Liver Transplant EvaluationShould this be [...] Villarrealeport Verified Date/Time: 10/12/2019 17:22:01 Reading Location: [facility] Mammo Reading Room POCT-GLUCOSE [id number] 12:42:00 Test Item Value Reference Range Interpretation Comments POC-GLUCOSE METER 119 mg/dL 70-110 H : TESTED A T [facility] 6720 (BEAKER) (test code = LIV Dozier [facility], 1538) 57015: Shoe Repairer Helper/Techni theo ID = [id number] for Tyler Sanchez RAD, CHEST, 1 VIEW, NON [id number] 09:14:00Reason for exam:->endotracheal intubationShould this be performed [...] MDReport Verified Date/Time: 10/12/2019 09:14:48 Reading Location: [facility] Radiology Reading Room MAGNESIUM 2019-10-12 04:39:00 Test Item Value Reference Range Interpretation Comments MAGNESIUM (BEAKER) (test code = 1.8 mg/dL 1.6-2.6 627) COMPREHENSIVE METABOLIC [id number] 04:39:00 Test Item Value Reference Range Interpretation [...] PATIEN TS. CBC W/PLT COUNT & AUTO [id number] 04:18:00 Test Item Value Reference Range Interpretation [...] (BEAKER) (test code = 2801) BLOOD GAS, [id number] 04:17:00 Test Item Value Reference Range Interpretation [...] (test code = 1819) 30.0 % SPIN/CONCENTRATION [id number] 01:15:00 Test Item Value Reference Range Interpretation Comments CONCENTRATION CHARGED (BEAKER) (test Done code = 2657) BODY FLUID CELL COUNT WITH [id number] 18:00:00 Test Item Value Reference Range Interpretation [...] (test code = 2873) EEG AWAKE AND [id number] 17:00:00Reason for exam:->acute encephalopathyShould this be performed at the bedside?->YesDate(s) of EE10/11/2019 DATE OF REPORT: 10/11/2019ACC: [id number] Number: [id number] Location: Inpatient ICUStart time: 10/11/2019 16:09Stop time: 10/11/2019 16:31ICD-10: R41.82 CPT Code: 37603 HISTORY: 54 y.o. female with hypertension, chronic [...] of this report.Jermaine Walton MD, PhDAttending NeurophysiologistCHI [place], [place] SPUTUM CULTURE + GRAM [id number] 15:43:00 Test Item Value Reference Range Interpretation Comments CULTURE (BEAKER) 4+ Normal respiratory (test code = 1095) candy present GRAM STAIN RESULT 2+ White blood cells (BEAKER) (test code = seen 1123) GRAM STAIN RESULT 0-5 epithelial cells (BEAKER) (test code = 59938) GRAM STAIN RESULT 1+ gram positive rods (BEAKER) (test code = 46463) GRAM STAIN RESULT <1+ yeast (BEAKER) (test code = 999529) MISCELLANEOUS LAB [id number] 08:34:00 Test Item Value Reference Range Interpretation Comments SCAN RESULT (test code = 5919739) RAD, CHEST, 1 VIEW, NON [id number] 07:51:00Reason for exam:->endotracheal intubationShould this be performed [...] MDReport Verified Date/Time: 10/11/2019 07:51:10 Reading Location: [facility] Radiology Reading Room BLOOD [id number] 07:00:00 Test Item Value Reference Range Interpretation Comments CULTURE (BEAKER) (test No growth in 5 days code = 1095) BLOOD [id number] 07:00:00 Test Item Value Reference Range Interpretation Comments CULTURE (BEAKER) (test No growth in 5 days code = 1095) POCT-GLUCOSE [id number] 05:51:00 Test Item Value Reference Range Interpretation Comments POC-GLUCOSE METER 103 mg/dL 70-110 : TESTED A T [facility] 6720 (BEAKER) (test code = L[place] Do[place] [facility], 1538) 8[address]: Shoe Repairer Helper/Techni theo ID = [id number] for SHARI BAJWA BLOOD GAS, [id number] 04:55:00 Test Item Value Reference Range Interpretation [...] (BEAKER) (test code = 1819) 40.0 % [id number] 04:46:00 Test Item Value Reference Range Interpretation Comments MAGNESIUM (BEAKER) (test code = 2.2 mg/dL 1.6-2.6 627) COMPREHENSIVE METABOLIC [id number] 04:46:00 Test Item Value Reference Range Interpretation [...] PATIEN TS. CBC W/PLT COUNT & AUTO [id number] 04:11:00 Test Item Value Reference Range Interpretation [...] PERCENT (BEAKER) (test code = 2801) POCT-GLUCOSE [id number] 23:55:00 Test Item Value Reference Range Interpretation Comments POC-GLUCOSE METER 118 mg/dL 70-110 H : TESTED A T [facility] 6720 (BEAKER) (test code = [place], 1538) [address]: Shoe Repairer Helper/Techni theo ID = [id number] for SHARI BAJWA POCT-GLUCOSE [id number] 17:40:00 Test Item Value Reference Range Interpretation Comments POC-GLUCOSE METER 142 mg/dL 70-110 H : TESTED A T [facility] 6720 (JASON) (test code = [facility] Tasia [facility], 1538) 41685: Shoe Repairer Helper/Techni theo ID = [id number] for Karely Bautista POCT-GLUCOSE [id number] 12:30:00 Test Item Value Reference Range Interpretation Comments POC-GLUCOSE METER 114 mg/dL 70-110 H : TESTED A T [facility] 6720 (BEDIAN) (test code = [facility] Tasia [facility], 1538) 14920: Shoe Repairer Helper/Techni theo ID = [id number] for Karely Bautista HIV-1 PCR, [id number] 11:07:00 Test Item Value Reference Range Interpretation Comments HIV-1 RESULT HIV RNA not detected HIV RNA not detected COMPONENT (JASON) (test code = 2703) This test uses a Real-Time Polymerase Chain Reaction (RT-PCR) methodology to detect a highly conserved region of the HIV-1 gag gene and was performed using the CHRISTINA AmpliPrep/CHRISTINA TaqMan HIV-1 test kit version 2.0 ([employer]Reportable range for this assay is 20 - 10,000,000 copies per mL (1.3 - 7.0 Log copies/mL).[id number] 08:14:00 Test Item Value Reference Range Interpretation Comments T3 TOTAL (JASON) (test code = 656) 36 ng/dL 48-159 L RAD, CHEST, 1 VIEW, NON [id number] 07:15:00Reason for exam:->endotracheal intubationShould this be performed [...] MDReport Verified Date/Time: 10/10/2019 07:15:28 Reading Location: [facility] Radiology Reading Room POCT- GLUCOSE [id number] 06:26:00 Test Item Value Reference Range Interpretation Comments POC-GLUCOSE METER 103 mg/dL 70-110 : TESTED A T [facility] 6720 (BEAKER) (test code = [place], 1538) [address]: Shoe Repairer Helper/Techni theo ID = [id number] for SUSIE TRUONG [id number] 05:32:00 Test Item Value Reference Range Interpretation [...] within 95-100% range.CBC W/PLT COUNT & AUTO [id number] 05:23:00 Test Item Value Reference Range Interpretation [...] 0-1 PERCENT (BEAKER) (test code = 2801) [id number] 05:10:00 Test Item Value Reference Range Interpretation [...] INR is2.5-3.5 for patients wiht mechanical heart valves.[id number] 05:10:00 Test Item Value Reference Range Interpretation Comments PHOSPHORUS (BEAKER) (test code = 3.3 mg/dL 2.3-4.7 604) [id number] 05:10:00 Test Item Value Reference Range Interpretation Comments MAGNESIUM (BEAKER) (test code = 2.3 mg/dL 1.6-2.6 627) COMPREHENSIVE METABOLIC [id number] 05:10:00 Test Item Value Reference Range Interpretation [...] S NOT APPLICABLE FOR DIALYSIS PATIEN TS. [id number] 05:08:00 Test Item Value Reference Range Interpretation Comments FIBRINOGEN LEVEL (BEAKER) (test 275 mg/dl 225-434 code = 658) PROTHROMBIN TIME/[id number] 05:07:00 Test Item Value Reference Range Interpretation [...] is2.5-3.5 for patients wiht mechanical heart valves.CALCIUM, [id number] 04:59:00 Test Item Value Reference Range Interpretation Comments CALCIUM IONIZED (BEAKER) (test 1.20 mmol/L 1.12-1.27 code = 698) PH, BLOOD (BEAKER) (test code = 7.37 1810) BLOOD GAS, [id number] 04:55:00 Test Item Value Reference Range Interpretation [...] (test code = 1819) 40.0 % POCT-GLUCOSE [id number] 00:46:00 Test Item Value Reference Range Interpretation Comments POC-GLUCOSE METER 90 mg/dL 70-110 : TESTED A T [facility] 6720 (BEAKER) (test code = [place], 1538) 67[address]: Shoe Repairer Helper/Techni theo ID = [id number] for MATH EW, SUSIE MRSA [id number] 19:33:00 Test Item Value Reference Range Interpretation Comments CULTURE (BEAKER) (test code No MRSA isolated = 1095) PROTHROMBIN TIME/[id number] 18:00:00 Test Item Value Reference Range Interpretation [...] INR is2.5-3.5 for patients wiht mechanical heart valves.PT/[id number] 18:00:00 Test Item Value Reference Range Interpretation [...] INR is2.5-3.5 for patients wiht mechanical heart valves.[id number] 17:55:00 Test Item Value Reference Range Interpretation Comments MAGNESIUM (BEAKER) (test code = 1.9 mg/dL 1.6-2.6 627) BASIC METABOLIC [id number] 17:55:00 Test Item Value Reference Range Interpretation [...] APPLICABLE FOR DIALYSIS PATIEN TS. CYTOMEGALOVIRUS ANTIBODY, [id number] 16:41:00 Test Item Value Reference Range Interpretation Comments CYTOMEGALOVIRUS, IGG (BEAKER) Negative Negative, Equivocal (test code = 3429) CMV IgG Result Interpretation: </= 0.8 Al Negative 0.9-1.0 Al Equivocal >/=1.1 Al PositiveCYTOMEGALOVIRUS ANTIBODY, [id number] 16:41:00 Test Item Value Reference Range Interpretation Comments CYTOMEGALOVIRUS IGM ANTIBODY Negative Negative, Equivocal (BEAKER) (test code = 3437) CMV IgM Result Interpretation: </= 0.8 Al Negative 0.9-1.0 Al Equivocal >/= 1.1 Al PositiveEBV ANTIBODY, [id number] 16:41:00 Test Item Value Reference Range Interpretation [...] 6720 (BEAKER) (test code = [place], 1538) 20[address]: Shoe Repairer Helper/Techni theo ID = [id number] for Karely Bautista CT, BRAIN, WITHOUT [id number] 14:07:00Patient with decerebrate posturing, r/o herniationFINAL REPORT [...] Date/Time: 10/09/2019 14:07:57 SPUTUM CULTURE + GRAM [id number] 12:59:00 Test Item Value Reference Range Interpretation Comments CULTURE (BEAKER) See comment (test code = 1095) GRAM STAIN RESULT 1+ White blood cells (BEAKER) (test code = seen 1123) GRAM STAIN RESULT 0-5 epithelial cells (BEAKER) (test code = 458373) GRAM STAIN RESULT No organisms seen (BEAKER) (test code = 507849) 2+ YeastNo Normal respiratory candy presentPOCT-GLUCOSE [id number] 12:22:00 Test Item Value Reference Range Interpretation Comments POC-GLUCOSE METER 168 mg/dL 70-110 H : TESTED A T [facility] 6720 (BEAKER) (test code = [place], 1538) 539[address]: Shoe Repairer Helper/Techni theo ID = [id number] for Karely Bautista POCT-GLUCOSE [id number] 10:04:00 Test Item Value Reference Range Interpretation Comments POC-GLUCOSE METER 101 mg/dL 70-110 : TESTED A T [facility] 6720 (BEAKER) (test code = LIV Dozier [facility], 1538) 88757: Shoe Repairer Helper/Techni theo ID = [id number] for Karely Bautista BILIRUBIN, [id number] 09:44:00 Test Item Value Reference Range Interpretation Comments BILIRUBIN DIRECT (BEAKER) (test 1.5 mg/dL 0.1-0.5 H code = 706) [id number] 07:19:00 Test Item Value Reference Range Interpretation Comments PROCALCITONIN (BEAKER) (test code 1.48 ng/mL <0.05 H = 3036) SEPSIS RISK (ng/mL)Low: 0.05-0.50Intermediate: 0.51-2.00High: >=2.83G-[id number] 05:26:00 Test Item Value Reference Range Interpretation [...] within 95-100% range.RAD, CHEST, 1 VIEW, NON [id number] 05:16:00Reason for exam:->endotracheal intubationShould this be performed [...] Cummins MDReport Verified Date/Time: 10/09/2019 05:16:08 CALCIUM, [id number] 05:05:00 Test Item Value Reference Range Interpretation Comments CALCIUM IONIZED (BEAKER) (test 1.14 mmol/L 1.12-1.27 code = 698) PH, BLOOD (BEAKER) (test code = 7.49 1810) BLOOD GAS, [id number] 05:04:00 Test Item Value Reference Range Interpretation [...] 40.0 % CBC W/PLT COUNT & AUTO [id number] 04:51:00 Test Item Value Reference Range Interpretation [...] (BEAKER) (test code = 2801) VANCOMYCIN LEVEL, [id number] 04:26:00 Test Item Value Reference Range Interpretation Comments VANCOMYCIN TROUGH (BEAKER) (test 7.0 ug/mL 10.0-20.0 L code = 522) [id number] 04:21:00 Test Item Value Reference Range Interpretation Comments PHOSPHORUS (BEAKER) (test code = 3.2 mg/dL 2.3-4.7 604) [id number] 04:21:00 Test Item Value Reference Range Interpretation Comments MAGNESIUM (BEAKER) (test code = 1.9 mg/dL 1.6-2.6 627) COMPREHENSIVE METABOLIC [id number] 04:21:00 Test Item Value Reference Range Interpretation [...] S NOT APPLICABLE FOR DIALYSIS PATIEN TS. [id number] 04:19:00 Test Item Value Reference Range Interpretation Comments FIBRINOGEN LEVEL (BEAKER) (test 267 mg/dl 225-434 code = 658) PT/[id number] 04:14:00 Test Item Value Reference Range Interpretation [...] is2.5-3.5 for patients wiht mechanical heart valves.PROTHROMBIN TIME/[id number] 04:13:00 Test Item Value Reference Range Interpretation [...] is2.5-3.5 for patients wiht mechanical heart valves.POCT-GLUCOSE [id number] 01:04:00 Test Item Value Reference Range Interpretation Comments POC-GLUCOSE METER 143 mg/dL 70-110 H : TESTED A T [facility] 6720 (BEAKER) (test code = finalsite [facility], 1538) 72443: Shoe Repairer Helper/Techni theo ID = [id number] for BONY BRISCOE, SUSIE POCT-GLUCOSE [id number] 20:20:00 Test Item Value Reference Range Interpretation Comments POC-GLUCOSE METER 145 mg/dL 70-110 H : TESTED A T [facility] 6720 (BEAKER) (test code = [facility] Riiid [facility], 1538) 46167: Shoe Repairer Helper/Techni theo ID = [id number] for BONY DASW, SUSIE POCT-GLUCOSE [id number] 16:43:00 Test Item Value Reference Range Interpretation Comments POC-GLUCOSE METER 164 mg/dL 70-110 H : TESTED Von T [facility] 6720 (SHANNONAKER) (test code = [place], 1538) 08[address]: Shoe Repairer Helper/Techni theo ID = [id number] for Karely Bautista CMV PCR, [id number] 15:47:00 Test Item Value Reference Range Interpretation [...] and its performance characteristics determined by the [facility] Path ology Department, Section of Molecular Pathology. It has not been cleared or approved by the U.S. Food and Drug Administration (FDA), since FDA approval is not required for clinical use of the test. Validation was done as required by The Clinical Laboratory Improvement Amendments of 1988.[id number] 15:29:00 Test Item Value Reference Range Interpretation Comments PHOSPHORUS (BEAKER) (test code = 3.5 mg/dL 2.3-4.7 604) [id number] 15:29:00 Test Item Value Reference Range Interpretation Comments MAGNESIUM (BEAKER) (test code = 2.1 mg/dL 1.6-2.6 627) [id number] 15:01:00 Test Item Value Reference Range Interpretation Comments PHOSPHORUS (BEAKER) (test code = 2.1 mg/dL 2.3-4.7 L 604) [id number] 15:01:00 Test Item Value Reference Range Interpretation Comments MAGNESIUM (BEAKER) (test code = 2.0 mg/dL 1.6-2.6 627) BASIC METABOLIC [id number] 15:01:00 Test Item Value Reference Range Interpretation [...] APPLICABLE FOR DIALYSIS PATIEN TS. Specimen slightly ictericPT/[id number] 14:53:00 Test Item Value Reference Range Interpretation [...] INR is2.5-3.5 for patients wiht mechanical heart valves.[id number] 14:38:00 Test Item Value Reference Range Interpretation Comments AMMONIA (BEAKER) (test code = 348) 34 mol/L 18-72 RUBELLA ANTIBODY, [id number] 14:20:00 Test Item Value Reference Range Interpretation Comments RUBELLA IGG QUANTITATION (BEAKER) 1.0 IU/mL <8.0 (test code = 572) Rubella IgG Result Interpretation: </= 7.0 IU/mL Negative - Presumed non- immune 8.0 - 9.9 IU/mL Equivocal >= 10.0 IU/mL Positive - Presumed immune VARICELLA ZOSTER ANTIBODY, [id number] 13:49:00 Test Item Value Reference Range Interpretation Comments VARICELLA ZOSTER IGG (AL) (BEAKER) 4.8 (test code = 3197) VARICELLA ZOSTER RESULT INTERPRETATIONS: <=0.8 Al Nonreactive: Presumed non-immune to VZV 0.9-1.0 Al Equivocal >=1.1 Al Reactive: Presumed immune to VZVCRYPTOCOCCAL [id number] 13:33:00 Test Item Value Reference Range Interpretation Comments CRYPTOCOCCAL ANTIGEN, SERUM Negative Negative, Interference (BEAKER) (test code = 1828) FACTOR 5 ACTIVITY (BLEEDING RISK)2019-10-08 13:03:00 Test Item Value Reference Range Interpretation Comments FACTOR V ACTIVITY (BEAKER) (test code = 9.0 % 60.0-150.0 L 665) CBC W/PLT COUNT & AUTO [id number] 12:13:00 Test Item Value Reference Range Interpretation [...] PERCENT (BEAKER) (test code = 2801) POCT-GLUCOSE [id number] 11:22:00 Test Item Value Reference Range Interpretation Comments POC-GLUCOSE METER 184 mg/dL 70-110 H : TESTED [place] [facility] 6720 (BEAKER) (test code = [place], 1538) 11290: Shoe Repairer Helper/Techni theo ID = [id number] for Karely Bautista ANTI-NUCLEAR ANTIBODY (JOSE ARMANDO)2019-10-08 10:44:00 Test Item Value Reference Range Interpretation Comments ANTI-NUCLEAR ANTIBODY (JOSE ARMANDO) (BEAKER) Negative Negative (test code = 418) Test performed by IFA method.Test performed by IFA method.[id number] 09:26:00 Test Item Value Reference Range Interpretation Comments PHOSPHORUS (BEAKER) (test code = 2.9 mg/dL 2.3-4.7 604) [id number] 09:26:00 Test Item Value Reference Range Interpretation Comments MAGNESIUM (BEAKER) (test code = 2.0 mg/dL 1.6-2.6 627) BASIC METABOLIC [id number] 09:26:00 Test Item Value Reference Range Interpretation [...] Specimen slightly ictericRAD, CHEST, 1 VIEW, NON [id number] 09:14:00Reason for exam:->endotracheal intubationShould this be performed at the bedside?->YesFINAL REPORT RAD, CHEST, 1 VIEW, NON DEPT INDICATION: endotracheal intubationCOMPARISON: Prior day's exam FINDINGS: Portable frontal view of the chest. IMPRESSION: Support Lines: Stable. Lungs and pleura: Improved interstitial congestion. No consolidation or effusion. No pneumothorax.Heart and mediastinum: Stable contours. Additional findings: None. Signed: JR Gramajo Robert MDRthe hospital of central [place] Verified Date/Time: 10/08/2019 09:14:39 Reading Location: [facility] Radiology Reading Room D-DIMER 2019-10-08 06:25:00 [...] of thrombosis is within 95-100% range. PROTHROMBIN TIME/[id number] 05:32:00 Test Item Value Reference Range Interpretation [...] INR is2.5-3.5 for patients wiht mechanical heart valves.[id number] 05:32:00 Test Item Value Reference Range Interpretation Comments FIBRINOGEN LEVEL (BEAKER) (test 200 mg/dl 225-434 L code = 658) [id number] 05:32:00 Test Item Value Reference Range Interpretation [...] Specimen slightly ictericCBC W/PLT COUNT & AUTO [id number] 05:24:00 Test Item Value Reference Range Interpretation [...] (BEAKER) (test code = 2801) LACTIC ACID, [id number] 05:16:00 Test Item Value Reference Range Interpretation Comments LACTATE BLOOD VENOUS (2) (BEAKER) 1.8 mmol/L 0.5-2.2 (test code = 2872) [id number] 23:51:00 Test Item Value Reference Range Interpretation Comments PHOSPHORUS (BEAKER) (test code = 4.4 mg/dL 2.3-4.7 604) [id number] 23:51:00 Test Item Value Reference Range Interpretation Comments MAGNESIUM (BEAKER) (test code = 2.2 mg/dL 1.6-2.6 627) BASIC METABOLIC [id number] 23:51:00 Test Item Value Reference Range Interpretation [...] DIALYSIS PATIEN TS. Specimen slightly ictericBLOOD GAS, [id number] 23:37:00 Test Item Value Reference Range Interpretation [...] 50.0 % CBC W/PLT COUNT & AUTO [id number] 20:12:00 Test Item Value Reference Range Interpretation [...] PERCENT (BEAKER) (test code = 2801) POCT-GLUCOSE [id number] 20:01:00 Test Item Value Reference Range Interpretation Comments POC-GLUCOSE METER 143 mg/dL 70-110 H : TESTED A T [facility] 6720 (BEAKER) (test code = [facility], 1538) 86074: Shoe Repairer Helper/Techni theo ID = [id number] for Liban Arnett BLOOD GAS, [id number] 19:54:00 Test Item Value Reference Range Interpretation [...] (test code = 1819) 24.0 % POCT-GLUCOSE [id number] 19:01:00 Test Item Value Reference Range Interpretation Comments POC-GLUCOSE METER 155 mg/dL 70-110 H : TESTED A T [facility] 6720 (BEAKER) (test code = [facility], 1538) 92520: Shoe Repairer Helper/Techni theo ID = [id number] for GIDEON NUNEZ HEPATOBILIARY [id number] 18:38:00Please do at bedside. Thank you.FINAL REPORT PROCEDURE: HEPATOBILIARY SCAN CPT CODE: 07617 INDICATION: abdominal pain PROTOCOL: 5.3 mCi of [...] JEFFERY ALARCON MD on 10/07/2019 06:38 PMPOCT-GLUCOSE [id number] 16:52:00 Test Item Value Reference Range Interpretation Comments POC-GLUCOSE METER 166 mg/dL 70-110 H : TESTED A T [facility] 6720 (BEAKER) (test code = [place], 1538) 01413: Shoe Repairer Helper/Techni theo ID = [id number] for GIDEON NUNEZ PT/[id number] 16:40:00 Test Item Value Reference Range Interpretation [...] INR is2.5-3.5 for patients wiht mechanical heart valves.[id number] 16:40:00 Test Item Value Reference Range Interpretation Comments FIBRINOGEN LEVEL (BEAKER) (test 156 mg/dl 225-434 L code = 658) PROTHROMBIN TIME/[id number] 16:39:00 Test Item Value Reference Range Interpretation [...] INR is2.5-3.5 for patients wiht mechanical heart valves.[id number] 16:36:00 Test Item Value Reference Range Interpretation Comments PHOSPHORUS (BEAKER) (test code = 1.8 mg/dL 2.3-4.7 L 604) [id number] 16:36:00 Test Item Value Reference Range Interpretation Comments MAGNESIUM (BEAKER) (test code = 2.5 mg/dL 1.6-2.6 627) BASIC METABOLIC [id number] 16:36:00 Test Item Value Reference Range Interpretation [...] APPLICABLE FOR DIALYSIS PATIEN TS. BLOOD GAS, [id number] 16:22:00 Test Item Value Reference Range Interpretation [...] 25.0 % CBC W/PLT COUNT & AUTO [id number] 12:44:00 Test Item Value Reference Range Interpretation [...] PERCENT (BEAKER) (test code = 2801) POCT-GLUCOSE [id number] 12:23:00 Test Item Value Reference Range Interpretation Comments POC-GLUCOSE METER 145 mg/dL 70-110 H : TESTED A T [facility] 6720 (BEAKER) (test code = [place], 1538) 61248: Shoe Repairer Helper/Techni theo ID = [id number] for GIDEON NUNEZ [id number] 12:06:00 Test Item Value Reference Range Interpretation Comments T4 TOTAL (BEAKER) (test code = 895) 4.6 ug/dL 4.9-11.7 L [id number] 10:00:00 Test Item Value Reference Range Interpretation Comments PHOSPHORUS (BEAKER) (test code = 2.8 mg/dL 2.3-4.7 604) [id number] 10:00:00 Test Item Value Reference Range Interpretation Comments MAGNESIUM (BEAKER) (test code = 2.0 mg/dL 1.6-2.6 627) BASIC METABOLIC [id number] 10:00:00 Test Item Value Reference Range Interpretation [...] NOT APPLICABLE FOR DIALYSIS PATIEN TS. POCT-GLUCOSE [id number] 08:15:00 Test Item Value Reference Range Interpretation Comments POC-GLUCOSE METER 174 mg/dL 70-110 H : TESTED A T [facility] 6720 (BEAKER) (test code = [place], 1538) 57192: Shoe Repairer Helper/Techni theo ID = [id number] for SA NDERS, GIDEON RAD, CHEST, 1 VIEW, NON [id number] 05:39:00Reason for exam:- >intubatedShould this be performed [...] MDReport Verified Date/Time: 10/07/2019 05:39:22 BLOOD GAS, [id number] 05:29:00 Test Item Value Reference Range Interpretation [...] (BEAKER) (test code = 1819) 40.0 % [id number] 05:07:00 Test Item Value Reference Range Interpretation [...] thrombosis is within 95-100% range. COMPREHENSIVE METABOLIC [id number] 04:59:00 Test Item Value Reference Range Interpretation [...] PATIEN TS. CBC W/PLT COUNT & AUTO [id number] 04:32:00 Test Item Value Reference Range Interpretation [...] H PERCENT (BEAKER) (test code = 2801) [id number] 04:30:00 Test Item Value Reference Range Interpretation Comments PHOSPHORUS (BEAKER) (test code = 3.1 mg/dL 2.3-4.7 604) [id number] 04:30:00 Test Item Value Reference Range Interpretation Comments MAGNESIUM (BEAKER) (test code = 1.8 mg/dL 1.6-2.6 627) POCT-GLUCOSE [id number] 04:25:00 Test Item Value Reference Range Interpretation Comments POC-GLUCOSE METER 126 mg/dL 70-110 H : TESTED A T [facility] 6720 (BEAKER) (test code = [place], 1538) 53275: Shoe Repairer Helper/Techni theo ID = [id number] for Liban Arnett [id number] 04:18:00 Test Item Value Reference Range Interpretation Comments FIBRINOGEN LEVEL (BEAKER) (test 173 mg/dl 225-434 L code = 658) PT/[id number] 04:14:00 Test Item Value Reference Range Interpretation [...] for patients wiht mechanical heart valves.LACTIC ACID, [id number] 04:13:00 Test Item Value Reference Range Interpretation Comments LACTATE BLOOD VENOUS (2) (BEAKER) 1.2 mmol/L 0.5-2.2 (test code = 2872) POCT-GLUCOSE [id number] 01:33:00 Test Item Value Reference Range Interpretation Comments POC-GLUCOSE METER 103 mg/dL 70-110 : TESTED A T [facility] 6720 (BEAKER) (test code = [facility], 1538) 62131: Shoe Repairer Helper/Techni theo ID = [id number] for GISELE CUETO HEMOGLOBIN AND [id number] 00:27:00 Test Item Value Reference Range Interpretation Comments HEMOGLOBIN (BEAKER) (test code = 8.6 GM/DL 11.2-15.7 L 410) HEMATOCRIT (BEAKER) (test code = 26.2 % 34.1-44.9 L 411) POCT-GLUCOSE [id number] 22:58:00 Test Item Value Reference Range Interpretation Comments POC-GLUCOSE METER 146 mg/dL 70-110 H : TESTED A T [facility] 6720 (BEAKER) (test code = [facility]ite [facility], 1538) 37205: Shoe Repairer Helper/Techni theo ID = [id number] for GISELE CUETO RAD, CHEST, 1 VIEW, NON [id number] 21:37:00Reason for exam:->line placement, right IJShould this [...] APPLICABLE FOR DIALYSIS PATIEN TS. PROTEIN, RANDOM [id number] 19:50:00 Test Item Value Reference Range Interpretation Comments PROTEIN, URINE (BEAKER) (test code = 83 mg/dL 0-14 H 1569) CREATININE, RANDOM [id number] 19:28:00 Test Item Value Reference Range Interpretation Comments CREATININE URINE (BEAKER) (test 37.6 mg/dL code = 375) Reference Range: No [id number] 19:00:00 Test Item Value Reference Range Interpretation Comments MAGNESIUM (BEAKER) 2.0 mg/dL 1.6-2.6 Specimen slightly (test code = 627) hemolyzed [id number] 19:00:00 Test Item Value Reference Range Interpretation [...] 0-0 (test code = 413) LACTIC ACID, [id number] 18:55:00 Test Item Value Reference Range Interpretation Comments LACTATE BLOOD VENOUS 1.9 mmol/L 0.5-2.2 Specime n slightly (2) (BEAKER) (test hemolyzed code = 2872) VITAMIN B12 AND [id number] 18:36:00 Test Item Value Reference Range Interpretation Comments VITAMIN B12 (BEAKER) (test code = > pg/mL 213-816 H 774) FOLATE (BEAKER) (test code = 362) 17.3 ng/mL >=7.0 BLOOD GAS, [id number] 18:29:00 Test Item Value Reference Range Interpretation [...] code = 1819) 40.0 % BASIC METABOLIC [id number] 17:47:00 Test Item Value Reference Range Interpretation [...] NOT APPLICABLE FOR DIALYSIS PATIEN TS. POCT-GLUCOSE [id number] 17:39:00 Test Item Value Reference Range Interpretation Comments POC-GLUCOSE METER 188 mg/dL 70-110 H : TESTED A T [facility] 6720 (BEAKER) (test code = [place], 1538) [address]: Shoe Repairer Helper/Techni theo ID = [id number] for SA NDERS, GIDEON LIPID [id number] 17:28:00 Test Item Value Reference Range Interpretation [...] Borderline 130-159 High 160-189 Very High >=190URIC [id number] 17:28:00 Test Item Value Reference Range Interpretation Comments URIC ACID (BEAKER) (test code = 7.3 mg/dL 2.6-7.2 H 773) HEMOGLOBIN [id number] 16:13:00 Test Item Value Reference Range Interpretation Comments HEMOGLOBIN A1C (BEAKER) (test code = 6.0 % 4.3-6.1 368) HEPATITIS A ANTIBODY, [id number] 16:13:00 Test Item Value Reference Range Interpretation Comments HEPATITIS A IGG ANTIBODY (BEAKER) Reactive Nonreactive A (test code = 2797) CARCINOEMBRYONIC ANTIGEN (CEA)2019-10-06 16:08:00 Test Item Value Reference Range Interpretation Comments CARCINOEMBRYONIC ANTIGEN (BEAKER) 23.1 ng/mL 0.0-5.0 H (test code = 685) VITAMIN D, [id number] 16:08:00 Test Item Value Reference Range Interpretation Comments VITAMIN D 25-OH (BEAKER) (test 10.1 ng/mL 6.6-49.9 code = 2764) Effective 09/07/2017: Reference Range ChangeNew: 6.6-49.9 ng/mL Previous: 13.0-47.8 ng/mLRecommended Vitamin D Target Range: 30.0-40.0 ng/mLTRANSFERRIN 2019-10-06 15:52:00 Test Item Value Reference Range Interpretation Comments TRANSFERRIN (BEAKER) (test code = 218 mg/dL 174-382 541) [id number] 15:09:00 Test Item Value Reference Range Interpretation Comments PHOSPHORUS (JASON) (test code = 1.7 mg/dL 2.3-4.7 L 604) U/S, ABDOMINAL, WITH [id number] 15:01:00Reason for exam:->acute liver injury, ? cholecystitis, [...] Verified Date/Time: 10/06/2019 15:01:21 Reading Location: [facility] C013X Ortho Consult Reading Room PREGNANCY SCREEN, [id number] 14:58:00 Test Item Value Reference Range Interpretation Comments TEST URINE (BEAKER) (test Negative code = 583) POCT-GLUCOSE [id number] 12:44:00 Test Item Value Reference Range Interpretation Comments POC-GLUCOSE METER 156 mg/dL 70-110 H : TESTED A T BSC 6720 (BEAKER) (test code = [place], 1538) [address]: Shoe Repairer Helper/Techni theo ID = [id number] for GIDEON NUNEZ [id number] 12:39:00 Test Item Value Reference Range Interpretation Comments RPR SCREEN (BEAKER) (test code = Nonreactive Nonreactive 420) B-TYPE NATRIURETIC FACTOR (BNP)2019-10-06 11:57:00 Test Item Value Reference Range Interpretation Comments B-TYPE NATRIURETIC PEPTIDE 3996 pg/mL 0-100 H (BEAKER) (test code = 700) [id number] 11:51:00 Test Item Value Reference Range Interpretation Comments MAGNESIUM (BEAKER) (test code = 2.2 mg/dL 1.6-2.6 627) BLOOD GAS, [id number] 11:50:00 Test Item Value Reference Range Interpretation [...] code = 1819) 50.0 % RESPIRATORY PANEL [id number] 11:35:00 Test Item Value Reference Range Interpretation [...] [facility] using the [employer] FilmArray Respiratory Panel. It is FDA cleared and has been verified and approved by the [facility] Molecular Diagnostics Laboratory for clinical use on nasopharyngeal swab specimens.The performance of the FilmArrayRP has not been established in individuals who received influenza vaccine. Recent administration ofa nasal influenza vaccine may cause false positive results for Influenza A and/orInfluenza B.RETICULOCYTE [id number] 11:32:00 Test Item Value Reference Range Interpretation Comments RETICULOCYTE COUNT PCT ([facility]) (test 2.1 % 0.5-1.7 H code = 575) KETONE, [id number] 11:30:00 Test Item Value Reference Range Interpretation Comments KETONES, BLOOD (AKER) (test code 0.3 mmol/L <0.4 = 1103) LEGIONELLA ANTIGEN, [id number] 09:37:00 Test Item Value Reference Range Interpretation Comments L. PNEUMOPHILA Negative - see Negative fo r L. SEROGP 1 UR AG comment pneumophila (JASON) (test code serogrou p 1 antigen, = 1156) suggesting no r ecent or current infe ction with this serog roup. Legionellosis c annot be ruled out si nce other serogroup s and species may cau se disease. STREP PNEUMONIAE [id number] 09:37:00 Test Item Value Reference Range Interpretation Comments STREP PNEUMONIAE Presumptive negative Presumptive negative ANTIGEN ([facility]) for pneumococcal for pneumococcal (test code = 1615) pneumonia - see pneumonia - see comment commen Presumptive negative for pneumococcal pneumonia, suggesting no current or recent pneumococcal infection. Infection due to S. pneumoniae cannot be ruled out since the antigen present in the sample may be below the detection limit of the test.POCT-GLUCOSE [id number] 08:45:00 Test Item Value Reference Range Interpretation Comments POC-GLUCOSE METER 119 mg/dL 70-110 H : TESTED A T [facility] 6720 (pbsi) (test code = LIV MUNIZ, 1538) [address]: Shoe Repairer Helper/Techni theo ID = [id number] for SA NDERS, GIDEON RAD, CHEST, 1 VIEW, NON [id number] 08:37:00Post-intubationReason for exam:- >intubationShould this be performed [...] MDReport Verified Date/Time: 10/06/2019 08:37:13 Reading Location: [place] 12760X Ortho Consult Reading Room [id number] 07:44:00 Test Item Value Reference Range Interpretation Comments PROCALCITONIN (BEAKER) (test code 0.97 ng/mL <0.05 H = 3036) SEPSIS RISK (ng/mL)Low: 0.05-0.50Intermediate: 0.51-2.00High: >=2.01URINALYSIS W/ REFLEX URINE [id number] 07:15:00 Test Item Value Reference Range Interpretation [...] code = 2795) ALPHA FETOPROTEIN (AFP), TUMOR [id number] 06:49:00 Test Item Value Reference Range Interpretation Comments ALPHA-FETOPROTEIN (BEAKER) (test code < ng/mL <10.0 = 1094) For 1 occurencesHEPATITIS B SURFACE [id number] 06:49:00 Test Item Value Reference Range Interpretation Comments HEPATITIS B SURFACE ANTIBODY < mIU/mL <8.0 (BEAKER) (test code = 647) For 1 occurencesRAPID DRUG SCREEN, [id number] 06:33:00 Test Item Value Reference Range Interpretation [...] situations. Chain of custody not maintained. Some zzql-nnj-qvivpxd medications, as well as adulterants, may cause inaccurate results. Clinical correlation should be applied. A more comprehensivedrug screen or confirmation of a detected drug may be performed upon request.CREATININE, RANDOM URINE 2019-10-06 06:30:00 Test Item Value Reference Range Interpretation Comments CREATININE URINE (BEAKER) (test 38.0 mg/dL code = 375) Reference Range: No NormalsSODIUM, RANDOM [id number] 06:30:00 Test Item Value Reference Range Interpretation Comments SODIUM URINE (BEAKER) (test code = 51 meq/L 243) Reference Range: No NormalsHEPATITIS B CORE ANTIBODY, [id number] 06:27:00 Test Item Value Reference Range Interpretation Comments HEPATITIS B CORE TOTAL ANTIBODY Nonreactive Nonreactive (BEAKER) (test code = 497) For 1 [id number] 05:50:00 Test Item Value Reference Range Interpretation Comments FERRITIN (BEAKER) (test code = 1588 ng/mL 5-275 H 361) For 1 occurencesACETAMINOPHEN [id number] 05:30:00 Test Item Value Reference Range Interpretation Comments ACETAMINOPHEN LEVEL (BEAKER) (test < ug/mL 10.0-30.0 L code = 344) Therapeutic Range: 10.0-30.0 g/mLToxic Levels: >200.0 g/mLFor 1 btrdfcgeazOPCAH-1-[id number] 05:20:00 Test Item Value Reference Range Interpretation Comments ALPHA-1 ANTITRYPSIN (BEAKER) 266.90 mg/dL 90.00-200.00 H (test code = 502) [id number] 05:17:00 Test Item Value Reference Range Interpretation Comments THYROID STIMULATING HORMONE 0.75 uIU/mL 0.35-4.94 (BEAKER) (test code = 772) HEPATITIS PANEL, [id number] 05:17:00 Test Item Value Reference Range Interpretation Comments HEPATITIS A IGM ANTIBODY (BEAKER) Nonreactive Nonreactive (test code = 498) HEPATITIS B CORE IGM ANTIBODY Nonreactive Nonreactive (BEAKER) (test code = 645) HEPATITIS C ANTIBODY (BEAKER) Nonreactive Nonreactive (test code = 367) HEPATITIS B SURFACE ANTIGEN (2) Nonreactive Nonreactive (BEAKER) (test code = 2585) HIV-1 ANTIGEN WITH HIV-1/2 [id number] 05:17:00 Test Item Value Reference Range Interpretation Comments HIV-1 ANTIGEN WITH HIV 1\T\2 Nonreactive Nonreactive ANTIBODY (2) (BEAKER) (test code = 2586) BASIC METABOLIC [id number] 05:09:00 Test Item Value Reference Range Interpretation [...] APPLICABLE FOR DIALYSIS PATIEN TS. HEPATIC FUNCTION [id number] 05:09:00 Test Item Value Reference Range Interpretation [...] code = > U/L 6-55 H 347) [id number] 05:07:00 Test Item Value Reference Range Interpretation Comments PHOSPHORUS (BEAKER) (test code = 3.6 mg/dL 2.3-4.7 604) [id number] 05:07:00 Test Item Value Reference Range Interpretation [...] H (test code = 364) LACTIC ACID, [id number] 04:58:00 Test Item Value Reference Range Interpretation Comments LACTATE BLOOD ARTERIAL (2) 1.5 mmol/L 0.5-2.2 (BEAKER) (test code = 2874) [id number] 04:56:00 Test Item Value Reference Range Interpretation Comments ETHANOL (BEAKER) (test code = 400) < mg/dL <=10 [id number] 04:54:00 Test Item Value Reference Range Interpretation [...] L (test code = 2590) BLOOD GAS, [id number] 04:53:00 Test Item Value Reference Range Interpretation [...] 30.0 % CBC W/PLT COUNT & AUTO [id number] 04:53:00 Test Item Value Reference Range Interpretation [...] PERCENT (BEAKER) (test code = 2801) CALCIUM, [id number] 04:51:00 Test Item Value Reference Range Interpretation Comments CALCIUM IONIZED (BEAKER) (test 1.12 mmol/L 1.12-1.27 code = 698) PH, BLOOD (BEAKER) (test code = 7.35 1810) PROTHROMBIN [id number] 04:43:00 Test Item Value Reference Range Interpretation [...] INR is2.5-3.5 for patients wiht mechanical heart valves.[id number] 04:43:00 Test Item Value Reference Range Interpretation Comments FIBRINOGEN LEVEL (BEAKER) (test 265 mg/dl 225-434 code = 658) [id number] 04:43:00 Test Item Value Reference Range Interpretation [...] for patients wiht mechanical heart valves.ACUTE HEPATITIS [id number] 06:15:00 Test Item Value Reference Range Interpretation [...] a HCV Nucleic Acid Amplification t est (353182).Perfor med At: HD [facility] [address] [place], [place] [id number] krsi Gould MD [phone] HIV 1 2 ANTIBODY [id number] 06:15:00 Test Item Value Reference Range Interpretation Comments AB HIV 1 2 (test code = NON REACTIVE SCREEN NONREACTIVE RQK42EP) AG HIV1 P24 (test code = NON REACTIVE P24 NONREACTIVE OVC2X79) - CT ABD PELVIS W/[id number] 12:57:00 Name: GINA MARIE Formerly [facility] : 1965 Age/S: 53 / F [address] Unit #: [id number] Loc: [place] [address] Phys: Bryan Orta MD Acct: [id number] Dis Date: Status: ADM IN PHONE #: [phone] Exam Date: 03/09/2019 1200 FAX #: Reason: abd pain EXAMS: CPT: [id number] CT ABD PELVIS W/CONT 42309 LOCATION: T18 EXAM: CT ABDOMEN AND PELVIS [...] CTDI: DLP: PAGE 1 Signed ReportBASIC METABOLIC [id number] 07:37:00 Test Item Value Reference Range Interpretation [...] = CA) 8.7 MG/DL 8.5-10.1 N T4 [id number] 07:37:00 Test Item Value Reference Range Interpretation Comments T4 FREE (test code = T4F) 0.70 NG/DL 0.89-1.76 L THYROID STIMULATING [id number] 07:37:00 Test Item Value Reference Range Interpretation Comments THYROID STIMULATING HORMONE 1.540 mcIU/ML 0.340-4.820 N (test code = TSH) ACUTE HEPATITIS [id number] 07:33:00 Test Item Value Reference Range Interpretation Comments AB HEPATITIS A IGM (test code = HAVMAB) AG HEPATITIS B SURFACE (test code = SCREEN NEGATIVE HBSAG) AB HEPATITIS B CORE IGM (test code = HBCMAB) AB HEPATITIS C (test code = HCVAB) RATIO <0.8 HIV 1 2 ANTIBODY [id number] 07:33:00 Test Item Value Reference Range Interpretation Comments AB HIV 1 2 (test code = NON REACTIVE SCREEN NONREACTIVE VRN61CN) AG HIV1 P24 (test code = NON REACTIVE P24 NONREACTIVE AEM8J30) GLYCOSYLATED HEMOGLOBIN [id number] 07:26:00 Test Item Value Reference Range Interpretation Comments GLYCOSYLATED HEMOGLOBIN (HA1C) 5.8 % A1C 4.2-6.3 N (test code = GLYHGB) ESTIMATED AVERAGE GLUCOSE (test 120 MG/DLest code = EAG) CBC W/AUTO [id number] 07:21:00 Test Item Value Reference Range Interpretation [...] DIFF/SCN CRITERIA MDIFF) - CT HEAD/BRAIN W/O [id number] 19:39:00 Name: GINA MARIE Formerly [facility] : 1965 Age/S: 53 / F [address] Unit #: [id number] Loc: [place] [address] Phys: Maria Morel MD Acct: [id number] Dis Date: Status: ADM IN PHONE #: [phone] Exam Date: 03/08/2019 2018 FAX #: Reason: near syn cope EXAMS: CPT: [id number] CT HEAD/BRAIN W/O CONT 60080 CT head History: near syncope Comparison: None [...] PAGE 1 Signed ReportDRUGS OF ABUSE SCREEN [id number] 19:12:00 Test Item Value Reference Range Interpretation [...] NEGATIVE SCcutoff <300 NG/ML [place]) COMPREHENSIVE METABOLIC [id number] 17:26:00 Test Item Value Reference Range Interpretation [...] 45-117 N TOTAL (test code = ALKP) [id number] 17:26:00 Test Item Value Reference Range Interpretation Comments MAGNESIUM (test code = MAG) 1.9 MG/DL 1.8-2.4 N [id number] 17:26:00 Test Item Value Reference Range Interpretation Comments ALCOHOL (test code = ALC) < 3 MG/DL 0-10 N COMPREHENSIVE METABOLIC [id number] 17:21:00 Test Item Value Reference Range Interpretation [...] TOTAL (test Unit/L 45-117 code = ALKP) [id number] 17:21:00 Test Item Value Reference Range Interpretation Comments MAGNESIUM (test code = MAG) MG/DL 1.8-2.4 [id number] 17:21:00 Test Item Value Reference Range Interpretation Comments ALCOHOL (test code = ALC) MG/DL 0-10 CBC W/AUTO [id number] 17:08:00 Test Item Value Reference Range Interpretation [...] DIFF/SCN CRITERIA MDIFF) - XR CHEST 1 [id number] 16:33:00 Name: GINA MARIE Formerly [facility] : 1965 Age/S: 53 / F [address] Unit #: [id number] Loc: [place] [address] Phys: Maria Morel MD Acct: [id number] Dis Date: Status: PRE ER PHONE #: [phone] Exam Date: 03/08/2019 8791 FAX #: Reason: near syncope EXAMS: CPT: [id number] XR CHEST 1 V 24567 Fluoro Time: DAP (Gy m2): Air Kerma [...] MARIE : 1965 Age/S: 53 / F [address] Unit #: [id number] Loc: [place] [address] Phys: Maria Morel MD Acct: [id number] Dis Date: Status: PRE ER PHONE #: [phone] Exam Date: 03/08/2019 1624 FAX #: Reason: near syncope EXAMS: CPT: [id number] XR CHEST 1 V 63864 Fluoro Time: DAP (Gy m2): Air Kerma (mGy): <Continued>Technologist: Nanette Gordon RT(R)(CT) Trnscb Date/Time: 03/08/2019 (2863) EsthelaJP19 Orig Print D/T: S: 03/08/2019 (8961) PAGE 2 Signed Report
== END 2021-10-09 17:36 | disposition home or self-care (01) ==
LOC: ER 14:35
DX: M54.2 Cervicalgia (principal); M54.9 Dorsalgia, unspecified; I10 Essential (primary) hypertension; Z96.653 Presence of artificial knee joint, bilateral; Z91.040 Latex allergy status
CPT/HCPCS: 72125; 72128; 99283

== ENCOUNTER 2021-10-27 15:25 | Emergency (ER) | payer BC ==
--- OUTSIDE RECORDS SUMMARY | 2021-10-27 15:35 | XMS REPORT | Continuity of Care Document ---
:1965 Author Organization [facility] t Address [address] [place] [address] Care Team Providers Name Role Phone Mary [...] Policy Number Effective Date Expiration Date S anastacio [facility] [id number] 2021 00:00:00 Problems Condition Condition Condition Status Onset Resolution Last Treating Co mments Source Name Details Category Date Date Treatment Clinician Date No known No known Disease Unive rs active active ity of problems problems [facility] Acute Problem Active 2021-04-11 Memor ia hepatic 01:17:26 l failure Acute [place] (disorder) hepatic failure (disorder) Active Problem 04/11/2021 [facility] 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:17:26 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 (disorder) Active Problem 04/11/2021 [facility] Carotid Problem Active 2021-04-11 Rao caity bruit 01:17:26 l (finding) Carotid Herm joão bruit (finding) Active Problem 04/11/2021 [facility] Cerebrovas Problem Active 2021-04-11 M emoria cular 01:17:26 l accident [place] (disorder) Cerebrovas cular accident (disorder) Active Problem 04/11/2021 [facility] Cervical Problem Active 2021-04-11 Mem oria radiculopa 01:17:26 l thy Cervical Reece n (disorder) radiculopa thy (disorder) Active Problem 04/11/2021 [facility] Degenerati Problem Active 2021-04-11 M emoria on of 01:17:26 l lumbar [place] interverte Degenerati bral disc on of (disorder) [...] 2021-04-11 M emoria ve 01:17:26 l disorder, [place] systemic Hypertensi arterial ve (disorder) disorder, systemic arterial (disorder) Active Problem 04/11/2021 [facility] Left Problem Active 2021-04-11 Memor ia carotid 01:17:26 l artery Left [place] stenosis carotid (disorder) artery stenosis (disorder) Active [...] Rash Univers Allergy 08-14 ity of 00:00: [place] [facility] IODINE DRUG Active Rash Univers INGREDI 08-14 ity of 00:00: [place] [facility] latex DA Active SV [facility] 7-12 Clear 00:00: [facility] latex DA Active SV BLISTERS, [facility] RASH 06-08 Clear 00:00: [facility] Povidone Propensi Active Rash Patient Unive rs -Iodine ty to 03-31 reports ity of adverse 00:00: blisterin [place] reaction 00 g and Medical s rashPatie Branch nt reports blisterin g and rashPatie nt reports blisterin g and rash POVIDONE DRUG Active Low Hives Univers -IODINE INGREDI 03-31 ity of 00:00: [place] [facility] iodine DA Active AR [facility] 07-04 Clear 00:00: [facility] iodine DA Active AR TOPICAL [facility] IODINE-RASH/ 07-04 Lanny r BLISTER 00:00: [facility] iodine iodine Active Memoria topical< topical< l sup>1</s sup>1</s Reece n up> up> NO KNOWN Drug Active Univers ALLERGIE Class ity of S [facility] Social History Social Habit Start Date Stop Date Quantity Comments Source History of tobacco Cigarette Smoker University of use [facility] Cigarettes smoked 2021-08-14 2021-08-14 Univers ity of current (pack per 00:00:00 00:00:00 [facility] ) - Reported [place] Tobacco use and 2021-08-14 2021-08-14 Never used Universit y of exposure 00:00:00 00:00:00 [facility] Alcohol intake 2021-08-14 2021-08-14 Current drinker Unive rsity of 00:00:00 00:00:00 of alcohol [place] [facility] (finding) Branch Social History 2019-07-18 2019-07-18 [facility] Mason brar 15:14:03 15:14:03 [birth year] Universit y of 00:00:00 00:00:00 [facility] Smoking Status Start Date Stop Date Source Unknown [facility] Current every day smoker 2021-08-14 00:00:00 Uni versity of [facility] Medications Ordered Filled Start Stop Current Ordering Indication Dosage Frequency Signature Comments Components Source Medication Medication Date Date Medication? Clinician (SIG) Name Name gabapentin Yes gabapentin U nivers 600 mg 9-17 600 mg ity of tablet 10:31: tablet [place] [id number] Take 1 Medical tablet 3 Branch times a day by oral route. tiZANidine Yes 4mg Take 4 mg Un malia 4 mg tablet 9-17 by mouth. ity of 10:31: [address] zolpidem Yes 5mg Take 5 mg Univ ers 12.5 mg CR 9-17 by mouth. ity of tablet 10:31: [address] ALPRAZolam Yes alprazolam U nivers 0.5 mg 9-17 0.5 mg ity of tablet 10:31: tablet [place] [address] Take 1 Medical tablet Branch every day by oral route for 10 days. Dexlansopra Yes Dexilant Un malia zole 9-17 60 mg ity of (DEXILANT) 10:31: capsule, Luis as 60 mg 37 delayed Medical capsule release Branch Take 1 capsule every day by oral route for 56 days. gabapentin Yes gabapentin U nivers 600 mg 9-17 600 mg ity of tablet 10:31: tablet [place] [address] Take 1 Medical tablet 3 Branch times a day by oral route. tiZANidine Yes 4mg Take 4 mg Un malia 4 mg tablet 9-17 by mouth. ity of 10:31: [address] zolpidem Yes 5mg Take 5 mg Univ ers 12.5 mg CR 9-17 by mouth. ity of tablet 10:31: [address] ALPRAZolam 2021-0 Yes alprazolam U nivers 0.5 mg 9-17 0.5 mg ity of tablet 10:31: tablet [place] 37 Take 1 Medical tablet Branch every [...] 600 mg ity of tablet 10:31: tablet [place] 37 Take 1 Medical tablet 3 Branch times a day by oral route. tiZANidine 2020-0 Yes 4mg Take 4 mg Un malia 4 mg tablet 9-17 by mouth. ity of 10:31: [address] Branch zolpidem 2020-0 Yes 5mg Take 5 mg Univ ers 12.5 mg CR 9-17 by mouth. ity of tablet 10:31: [address] Branch ALPRAZolam 2020-0 Yes alprazolam U nivers 0.5 mg 9-17 0.5 mg ity of tablet 10:31: tablet [place] 37 Take 1 Medical tablet Branch every [...] 600 mg ity of tablet 10:31: tablet [place] [address] Take 1 Medical tablet 3 Branch times a day by oral route. tiZANidine 2020-0 Yes 4mg Take 4 mg Un malia 4 mg tablet 9-17 by mouth. ity of 10:31: [address] Branch zolpidem 2020-0 Yes 5mg Take 5 mg Univ ers 12.5 mg CR 9-17 by mouth. ity of tablet 10:31: [address] Branch ALPRAZolam 2020-0 Yes alprazolam U nivers 0.5 mg 9-17 0.5 mg ity of tablet 10:31: tablet [place] 37 Take 1 Medical tablet Branch every day by oral route for 10 days. Dexlansopra 2021-0 Yes Dexilant Un malia zole 9-17 60 [...] 4 mg Un malia 4 mg tablet 17 by mouth. ity of 10:31: Medical Branch zolpidem Yes 5mg Take 5 mg Univ ers 12.5 mg CR -17 by mouth. ity of tablet 10:31: Medical [...] day by oral route for 56 days. atorvastati Yes 10mg Take 10 mg Univers n 10 mg 7-25 by mouth ity of tablet 00:00: every [place] 00 evening. Medical Branch atorvastati Yes 10mg Take 10 mg Univers n 10 mg 7-25 by mouth ity of tablet 00:00: every [place] 00 evening. Medical Branch atorvastati Yes 10mg Take 10 mg Univers n 10 mg 7-25 by mouth ity of tablet 00:00: every [place] 00 evening. Medical Branch atorvastati Yes 10mg Take 10 mg Univers n 10 mg 7-25 by mouth ity of tablet 00:00: every [place] 00 evening. Medical Branch atorvastati Yes 10mg Take 10 mg Univers n 10 mg 7-25 by mouth ity of tablet 00:00: every [place] 00 evening. 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, Weight atorvastati 2020-0 Yes 20 mg = 2 M emoria n 10 mg 1-25 tab, PO, l oral tablet 21:02: Daily, # Brendon rmann 00 60 tab, 1 Refill(s), Pharmacy: [facility] #[id number], 162.56, cm, 12/22/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, Height, 66.818, kg, 12/22/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, Weight atorvastati 2020-0 Yes 20 mg = 2 M emoria n 10 mg 1-25 tab, PO, l oral tablet 21:02: Daily, # He rmann 00 60 tab, 1 Refill(s), Pharmacy: [facility] #[id number], 162.56, cm, 12/22/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, Height, 66.818, kg, 12/22/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, Weight atorvastati 2020-0 Yes 20 mg = 2 M emoria n 10 mg 1-25 tab, PO, l oral tablet 21:02: Daily, # He rmann 00 60 tab, 1 Refill(s), Pharmacy: [facility] #[id number], 162.56, cm, 12/22/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, Height, 66.818, kg, 12/22/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, Weight atorvastati 2020-0 Yes 20 mg = 2 M emoria n 10 mg 1-25 tab, PO, l oral tablet 21:02: Daily, # He rmann 00 60 tab, 1 Refill(s), Pharmacy: [facility] #[id number], 162.56, cm, 12/22/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, Weight atorvastati Yes 20 mg = 2 M emoria n 10 mg 1-25 tab, PO, l oral tablet 21:02: Daily, # He rmann 00 60 tab, 1 Refill(s), Pharmacy: [facility] #[id number], 162.56, cm, 12/22/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, Height, 66.818, kg, 12/22/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, Weight atorvastati Yes 20 mg = 2 M emoria n 10 mg 1-25 tab, PO, l oral tablet 21:02: Daily, # He rmann 00 60 tab, 1 Refill(s), Pharmacy: [facility] #[id number], 162.56, cm, 12/22/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, Height, 66.818, kg, 12/22/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, Weight atorvastati Yes 20 mg = 2 M emoria n 10 mg 1-25 tab, PO, l oral tablet 21:02: Daily, # He rmann 00 60 tab, 1 Refill(s), Pharmacy: [facility] #[id number], 162.56, cm, 12/22/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, Height, 66.818, kg, 12/22/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, Weight atorvastati 0 Yes 20 mg = 2 M emoria n 10 mg 1-25 tab, PO, l oral tablet 21:02: Daily, # He rmann 00 60 tab, 1 Refill(s), Pharmacy: [facility] #[id number], 162.56, cm, 12/22/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, Height, 66.818, kg, 12/22/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, Weight atorvastati 2020-0 Yes 20 mg = 2 M emoria n 10 mg 1-25 tab, PO, l oral tablet 21:02: Daily, # He rmann 00 60 tab, 1 Refill(s), Pharmacy: [facility] #[id number], 162.56, cm, 12/22/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, Height, 66.818, kg, 12/22/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, Weight atorvastati 2020-0 Yes 20 mg = 2 M emoria n 10 mg 1-25 tab, PO, l oral tablet 21:02: Daily, # He rmann 00 60 tab, 1 Refill(s), Pharmacy: [facility] #[id number], 162.56, cm, 12/22/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, Height, 66.818, kg, 12/22/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, Weight atorvastati 2020-0 Yes 20 mg = 2 M emoria n 10 mg 1-25 tab, PO, l oral tablet 21:02: Daily, # He rmann 00 60 tab, 1 Refill(s), Pharmacy: [facility] #[id number], 162.56, cm, 12/22/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, Height, 66.818, kg, 12/22/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, Weight atorvastati 2020-0 Yes 20 mg = 2 M emoria n 10 mg 1-25 tab, PO, l oral tablet 21:02: Daily, # He rmann 00 60 tab, 1 Refill(s), Pharmacy: [facility] #[id number], 162.56, cm, 12/22/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818, kg, 07/31/20 13:42:00 CDT, Weight topiramate 2020-0 Yes 50 mg = 1 Me moria 50 mg oral 9-03 tab, PO, l tablet 18:52: BID, # 60 Reece n 00 tab, 3 Refill(s), Pharmacy: [facility] #[id number], 162.56, cm, 07/31/20 13:42:00 CDT, Height, 56.818, kg, 07/31/20 13:42:00 CDT, Weight topiramate 2020-0 Yes 50 mg = 1 Me moria 50 mg oral 9-03 tab, PO, l tablet 18:52: BID, # 60 Reece n 00 tab, 3 Refill(s), Pharmacy: [facility] #[id number], 162.56, cm, 07/31/20 13:42:00 CDT, Height, 56.818, kg, 07/31/20 13:42:00 CDT, Weight topiramate 2020-0 Yes 50 mg = 1 Me moria 50 mg oral 9-03 tab, PO, l tablet 18:52: BID, # 60 Reece n 00 tab, 3 Refill(s), Pharmacy: [facility] #[id number], 162.56, cm, 07/31/20 13:42:00 CDT, Height, 56.818, kg, 07/31/20 13:42:00 CDT, Weight topiramate 2020-0 Yes 50 mg = 1 Me moria 50 mg oral 9-03 tab, PO, l tablet 18:52: BID, # 60 Reece n 00 tab, 3 Refill(s), Pharmacy: [facility] #[id number], 162.56, cm, 07/31/20 13:42:00 CDT, Height, 56.818, kg, 07/31/20 13:42:00 CDT, Weight topiramate 2020-0 Yes 50 mg = 1 Me moria 50 mg oral 9-03 tab, PO, l tablet 18:52: BID, # 60 Reece n 00 tab, 3 Refill(s), Pharmacy: [facility] #[id number], 162.56, cm, 07/31/20 13:42:00 CDT, Height, 56.818, kg, 07/31/20 13:42:00 CDT, Weight topiramate 2020-0 Yes 50 mg = 1 Me moria 50 mg oral 9-03 tab, PO, l tablet 18:52: BID, # 60 Reece n 00 tab, 3 Refill(s), Pharmacy: [facility] #[id number], 162.56, cm, 07/31/20 13:42:00 CDT, Height, 56.818, kg, 07/31/20 13:42:00 CDT, Weight topiramate 2020-0 Yes 50 mg = 1 Me moria 50 mg oral 9-03 tab, PO, l tablet 18:52: BID, # 60 Reece n 00 tab, 3 Refill(s), Pharmacy: [facility] #[id number], 162.56, cm, 07/31/20 13:42:00 CDT, Height, 56.818, kg, 07/31/20 13:42:00 CDT, Weight topiramate 2020-0 Yes 50 mg = 1 Me moria 50 mg oral 9-03 tab, PO, l tablet 18:52: BID, # 60 Reece n 00 tab, 3 Refill(s), Pharmacy: [facility] #[id number], 162.56, cm, 07/31/20 13:42:00 CDT, Height, 56.818, kg, 07/31/20 13:42:00 CDT, Weight topiramate 2020-0 Yes 50 mg = 1 Me moria 50 mg oral 9-03 tab, PO, l tablet 18:52: BID, # 60 Reece n 00 tab, 3 Refill(s), Pharmacy: [facility] #[id number], 162.56, cm, 07/31/20 13:42:00 CDT, Height, 56.818, kg, 07/31/20 13:42:00 CDT, Weight topiramate 2020-0 Yes 50 mg = 1 Me moria 50 mg oral 9-03 tab, PO, l tablet 18:52: BID, # 60 Reece n 00 tab, 3 Refill(s), Pharmacy: [facility] #[id number], 162.56, cm, 07/31/20 13:42:00 CDT, Height, 56.818, kg, 07/31/20 13:42:00 CDT, Weight topiramate 2020-0 Yes 50 mg = 1 Me moria 50 mg oral 9-03 tab, PO, l tablet 18:52: BID, # 60 Reece n 00 tab, 3 Refill(s), Pharmacy: [facility] #[id number], 162.56, cm, 07/31/20 13:42:00 CDT, Height, 56.818, kg, 07/31/20 13:42:00 CDT, Weight topiramate 2020-0 Yes 50 mg = 1 Me moria 50 mg oral 9-03 tab, PO, l tablet 18:52: BID, # 60 Reece n 00 tab, 3 Refill(s), Pharmacy: [facility] #[id number], 162.56, cm, 07/31/20 13:42:00 CDT, Height, 56.818, kg, 07/31/20 13:42:00 CDT, Weight topiramate 2020-0 Yes 50 mg = 1 Me moria 50 mg oral 9-03 tab, PO, l tablet 18:52: BID, # 60 Reece n 00 tab, 3 Refill(s), Pharmacy: [facility] #[id number], 162.56, cm, 07/31/20 13:42:00 CDT, Height, 56.818, kg, 07/31/20 13:42:00 CDT, Weight topiramate 2020-0 Yes 50 mg = 1 Me moria 50 mg oral 9-03 tab, PO, l tablet 18:52: BID, # 60 Reece n 00 tab, 3 Refill(s), Pharmacy: [facility] #[id number], 162.56, cm, 07/31/20 13:42:00 CDT, Height, 56.818, kg, 07/31/20 13:42:00 CDT, Weight topiramate 2020-0 Yes 50 mg = 1 Me moria 50 mg oral 9-03 tab, PO, l tablet 18:52: BID, # 60 Reece n 00 tab, 3 Refill(s), Pharmacy: [facility] #[id number], 162.56, cm, 07/31/20 13:42:00 CDT, Height, 56.818, kg, 07/31/20 13:42:00 CDT, Weight topiramate 2020-0 Yes 50 mg = 1 Me moria 50 mg oral 9-03 tab, PO, l tablet 18:52: BID, # 60 Reece n 00 tab, 3 Refill(s), Pharmacy: [facility] #[id number], 162.56, cm, 07/31/20 13:42:00 CDT, Height, 56.818, kg, 07/31/20 13:42:00 CDT, Weight topiramate 2020-0 Yes 50 mg = 1 Me moria 50 mg oral 9-03 tab, PO, l tablet 18:52: BID, # 60 Reece n 00 tab, 3 Refill(s), Pharmacy: [facility] #[id number], 162.56, cm, 07/31/20 13:42:00 CDT, Height, 56.818, kg, 07/31/20 13:42:00 CDT, Weight topiramate 2020-0 Yes 50 mg = 1 Me moria 50 mg oral 9-03 tab, PO, l tablet 18:52: BID, # 60 Reece n 00 tab, 3 Refill(s), Pharmacy: [facility] #[id number], 162.56, cm, 07/31/20 13:42:00 CDT, Height, 56.818, kg, 07/31/20 13:42:00 CDT, Weight topiramate 2020-0 Yes 50 mg = 1 Me moria 50 mg oral 9-03 tab, PO, l tablet 18:52: BID, # 60 Reece n 00 tab, 3 Refill(s), Pharmacy: [facility] #[id number], 162.56, cm, 07/31/20 13:42:00 CDT, Height, 56.818, kg, 07/31/20 13:42:00 CDT, Weight topiramate 2020-0 Yes 25 mg = 1 Me moria 25 MG Oral 4-15 tab, PO, l Tablet 20:04: BID, # 60 Reece n [Topamax] 00 tab, 2 Refill(s), Pharmacy: [facility] #[id number] topiramate 2020-0 Yes 25 mg = 1 Me moria 25 MG Oral 4-15 tab, PO, l Tablet 20:04: BID, # 60 Reece n [Topamax] 00 tab, 2 Refill(s), Pharmacy: [facility] #[id number] topiramate 2020-0 Yes 25 mg = 1 Me moria 25 MG Oral 4-15 tab, PO, l Tablet 20:04: BID, # 60 Reece n [Topamax] 00 tab, 2 Refill(s), Pharmacy: [facility] #[id number] topiramate 2020-0 Yes 25 mg = 1 Me moria 25 MG Oral 4-15 tab, PO, l Tablet 20:04: BID, # 60 Reece n [Topamax] 00 tab, 2 Refill(s), Pharmacy: [facility] #[id number] topiramate 2020-0 Yes 25 mg = 1 Me moria 25 MG Oral 4-15 tab, PO, l Tablet 20:04: BID, # 60 Reece n [Topamax] 00 tab, 2 Refill(s), Pharmacy: [facility] #[id number] topiramate 2020-0 Yes 25 mg = 1 Me moria 25 MG Oral 4-15 tab, PO, l Tablet 20:04: BID, # 60 Reece n [Topamax] 00 tab, 2 Refill(s), Pharmacy: [facility] #[id number] topiramate 2020-0 Yes 25 mg = 1 Me moria 25 MG Oral 4-15 tab, PO, l Tablet 20:04: BID, # 60 Reece n [Topamax] 00 tab, 2 Refill(s), Pharmacy: [facility] #[id number] topiramate 2020-0 Yes 25 mg = 1 Me moria 25 MG Oral 4-15 tab, PO, l Tablet 20:04: BID, # 60 Reece n [Topamax] 00 tab, 2 Refill(s), Pharmacy: [facility] #[id number] topiramate 2020-0 Yes 25 mg = 1 Me moria 25 MG Oral 4-15 tab, PO, l Tablet 20:04: BID, # 60 Reece n [Topamax] 00 tab, 2 Refill(s), Pharmacy: [facility] #[id number] topiramate 2020-0 Yes 25 mg = 1 Me moria 25 MG Oral 4-15 tab, PO, l Tablet 20:04: BID, # 60 Reece n [Topamax] 00 tab, 2 Refill(s), Pharmacy: [facility] #[id number] topiramate 2020-0 Yes 25 mg = 1 Me moria 25 MG Oral 4-15 tab, PO, l Tablet 20:04: BID, # 60 Reece n [Topamax] 00 tab, 2 Refill(s), Pharmacy: [facility] #[id number] topiramate 2020-0 Yes 25 mg = 1 Me moria 25 MG Oral 4-15 tab, PO, l Tablet 20:04: BID, # 60 Reece n [Topamax] 00 tab, 2 Refill(s), Pharmacy: [facility] #[id number] topiramate 2020-0 Yes 25 mg = 1 Me moria 25 MG Oral 4-15 tab, PO, l Tablet 20:04: BID, # 60 Reece n [Topamax] 00 tab, 2 Refill(s), Pharmacy: [facility] #[id number] topiramate 2020-0 Yes 25 mg = 1 Me moria 25 MG Oral 4-15 tab, PO, l Tablet 20:04: BID, # 60 Reece n [Topamax] 00 tab, 2 Refill(s), Pharmacy: [facility] #[id number] topiramate 2020-0 Yes 25 mg = 1 Me moria 25 MG Oral 4-15 tab, PO, l Tablet 20:04: BID, # 60 Reece n [Topamax] 00 tab, 2 Refill(s), Pharmacy: [facility] #[id number] topiramate 2020-0 Yes 25 mg = 1 Me moria 25 MG Oral 4-15 tab, PO, l Tablet 20:04: BID, # 60 Reece n [Topamax] 00 tab, 2 Refill(s), Pharmacy: [facility] #[id number] topiramate 2020-0 Yes 25 mg = 1 Me moria 25 MG Oral 4-15 tab, PO, l Tablet 20:04: BID, # 60 Reece n [Topamax] 00 tab, 2 Refill(s), Pharmacy: [facility] #[id number] topiramate 2020-0 Yes 25 mg = 1 Me moria 25 MG Oral 4-15 tab, PO, l Tablet 20:04: BID, # 60 Reece n [Topamax] 00 tab, 2 Refill(s), Pharmacy: [facility] #[id number] topiramate 2020-0 Yes 25 mg = 1 Me moria 25 MG Oral 4-15 tab, PO, l Tablet 20:04: BID, # 60 Reece n [Topamax] 00 tab, 2 Refill(s), Pharmacy: [facility] #[id number] topiramate 2020-0 Yes 25 mg = 1 Me moria 25 MG Oral 4-15 tab, PO, l Tablet 20:04: BID, # 60 Reece n [Topamax] 00 tab, 2 Refill(s), Pharmacy: [facility] #[id number] Morphine 2020-0 Yes 15 mg, PO, Mem oria 2-25 Q12H, 0 l 19:30: Refill(s) Morphine 2020-0 Yes 15 mg, PO, Mem oria 2-25 Q12H, 0 l 19:30: Refill(s) Morphine 2020-0 Yes 15 mg, PO, Mem oria 2-25 Q12H, 0 l 19:30: Refill(s) [facility] 00 Morphine 2020-0 Yes 15 mg, PO, Mem oria 2-25 Q12H, 0 l 19:30: Refill(s) Morphine 2020-0 Yes 15 mg, PO, Mem oria 2-25 Q12H, 0 l 19:30: Refill(s) Morphine 2020-0 Yes 15 mg, PO, Mem oria 2-25 Q12H, 0 l 19:30: Refill(s) Morphine 2020-0 Yes 15 mg, PO, Mem oria 2-25 Q12H, 0 l 19:30: Refill(s) Morphine 2020-0 Yes 15 mg, PO, Mem oria 2-25 Q12H, 0 l 19:30: Refill(s) Morphine 2020-0 Yes 15 mg, PO, Mem oria 2-25 Q12H, 0 l 19:30: Refill(s) Morphine 2020-0 Yes 15 mg, PO, Mem oria 2-25 Q12H, 0 l 19:30: Refill(s) Morphine 2020-0 Yes 15 mg, PO, Mem oria 2-25 Q12H, 0 l 19:30: Refill(s) Morphine 2020-0 Yes 15 mg, PO, Mem oria 2-25 Q12H, 0 l 19:30: Refill(s) Morphine 2020-0 Yes 15 mg, PO, Mem oria 2-25 Q12H, 0 l 19:30: Refill(s) Morphine 2020-0 Yes 15 mg, PO, Mem oria 2-25 Q12H, 0 l 19:30: Refill(s) Morphine 2020-0 Yes 15 mg, PO, Mem oria 2-25 Q12H, 0 l 19:30: Refill(s) Morphine 2020-0 Yes 15 mg, PO, Mem oria 2-25 Q12H, 0 l 19:30: Refill(s) Morphine 2020-0 Yes 15 mg, PO, Mem oria 2-25 Q12H, 0 l 19:30: Refill(s) Morphine 2020-0 Yes 15 mg, PO, Mem oria 2-25 Q12H, 0 l 19:30: Refill(s) Morphine 2020-0 Yes 15 mg, PO, Mem oria 2-25 Q12H, 0 l 19:30: Refill(s) Morphine 2020-0 Yes 15 mg, PO, Mem oria 2-25 Q12H, 0 l 19:30: Refill(s) topiramate 2020-0 Yes 25 mg = 1 Me moria 25 MG Oral 2-14 tab, PO, l Tablet 23:50: BID, # 60 Reece n [Topamax] 00 tab, 2 Refill(s), Pharmacy: [facility] #[id number] topiramate 2020-0 Yes 25 mg = 1 Me moria 25 MG Oral 2-14 tab, PO, l Tablet 23:50: BID, # 60 Reece n [Topamax] 00 tab, 2 Refill(s), Pharmacy: [facility] #[id number] topiramate 2020-0 Yes 25 mg = 1 Me moria 25 MG Oral 2-14 tab, PO, l Tablet 23:50: BID, # 60 Reece n [Topamax] 00 tab, 2 Refill(s), Pharmacy: [facility] #[id number] topiramate 2020-0 Yes 25 mg = 1 Me moria 25 MG Oral 2-14 tab, PO, l Tablet 23:50: BID, # 60 Reece n [Topamax] 00 tab, 2 Refill(s), Pharmacy: [facility] #[id number] topiramate 2020-0 Yes 25 mg = 1 Me moria 25 MG Oral 2-14 tab, PO, l Tablet 23:50: BID, # 60 Reece n [Topamax] 00 tab, 2 Refill(s), Pharmacy: [facility] #[id number] topiramate 2020-0 Yes 25 mg = 1 Me moria 25 MG Oral 2-14 tab, PO, l Tablet 23:50: BID, # 60 Reece n [Topamax] 00 tab, 2 Refill(s), Pharmacy: [facility] #[id number] topiramate 2020-0 Yes 25 mg = 1 Me moria 25 MG Oral 2-14 tab, PO, l Tablet 23:50: BID, # 60 Reece n [Topamax] 00 tab, 2 Refill(s), Pharmacy: [facility] #[id number] topiramate 2020-0 Yes 25 mg = 1 Me moria 25 MG Oral 2-14 tab, PO, l Tablet 23:50: BID, # 60 Reece n [Topamax] 00 tab, 2 Refill(s), Pharmacy: [facility] #[id number] topiramate 2020-0 Yes 25 mg = 1 Me moria 25 MG Oral 2-14 tab, PO, l Tablet 23:50: BID, # 60 Reece n [Topamax] 00 tab, 2 Refill(s), Pharmacy: [facility] #[id number] topiramate 2020-0 Yes 25 mg = 1 Me moria 25 MG Oral 2-14 tab, PO, l Tablet 23:50: BID, # 60 Reece n [Topamax] 00 tab, 2 Refill(s), Pharmacy: [facility] #[id number] topiramate 2020-0 Yes 25 mg = 1 Me moria 25 MG Oral 2-14 tab, PO, l Tablet 23:50: BID, # 60 Reece n [Topamax] 00 tab, 2 Refill(s), Pharmacy: [facility] #[id number] topiramate 2020-0 Yes 25 mg = 1 Me moria 25 MG Oral 2-14 tab, PO, l Tablet 23:50: BID, # 60 Reece n [Topamax] 00 tab, 2 Refill(s), Pharmacy: [facility] #[id number] topiramate 2020-0 Yes 25 mg = 1 Me moria 25 MG Oral 2-14 tab, PO, l Tablet 23:50: BID, # 60 Reece n [Topamax] 00 tab, 2 Refill(s), Pharmacy: [facility] #[id number] topiramate 2020-0 Yes 25 mg = 1 Me moria 25 MG Oral 2-14 tab, PO, l Tablet 23:50: BID, # 60 Reece n [Topamax] 00 tab, 2 Refill(s), Pharmacy: [facility] #[id number] topiramate 2020-0 Yes 25 mg = 1 Me moria 25 MG Oral 2-14 tab, PO, l Tablet 23:50: BID, # 60 Reece n [Topamax] 00 tab, 2 Refill(s), Pharmacy: [facility] #[id number] topiramate 2020-0 Yes 25 mg = 1 Me moria 25 MG Oral 2-14 tab, PO, l Tablet 23:50: BID, # 60 Reece n [Topamax] 00 tab, 2 Refill(s), Pharmacy: [facility] #[id number] topiramate 2020-0 Yes 25 mg = 1 Me moria 25 MG Oral 2-14 tab, PO, l Tablet 23:50: BID, # 60 Reece n [Topamax] 00 tab, 2 Refill(s), Pharmacy: [facility] #[id number] topiramate 2020-0 Yes 25 mg = 1 Me moria 25 MG Oral 2-14 tab, PO, l Tablet 23:50: BID, # 60 Reece n [Topamax] 00 tab, 2 Refill(s), Pharmacy: [facility] #[id number] topiramate 2020-0 Yes 25 mg = 1 Me moria 25 MG Oral 2-14 tab, PO, l Tablet 23:50: BID, # 60 Reece n [Topamax] 00 tab, 2 Refill(s), Pharmacy: [facility] #[id number] topiramate 2020-0 Yes 25 mg = 1 Me moria 25 MG Oral 2-14 tab, PO, l Tablet 23:50: BID, # 60 Reece n [Topamax] 00 tab, 2 Refill(s), Pharmacy: [facility] [place][id number] Aspirin 81 2020-0 Yes 81 mg = 1 Me moria MG Enteric -09 tab, PO, l Coated 23:31: Daily, # [place] Tablet 00 90 tab, 3 Refill(s) Aspirin 81 2020-0 Yes 81 mg = 1 Me moria MG Enteric 1-09 tab, PO, l Coated 23:31: Daily, # [place] Tablet 00 90 tab, 3 Refill(s) Aspirin 81 2020-0 Yes 81 mg = 1 Me moria MG Enteric -09 tab, PO, l Coated 23:31: Daily, # [place] Tablet 00 90 tab, 3 Refill(s) Aspirin 81 2020-0 Yes 81 mg = 1 Me moria MG Enteric -09 tab, PO, l Coated 23:31: Daily, # [place] Tablet 00 90 tab, 3 Refill(s) Aspirin 81 2020-0 Yes 81 mg = 1 Me moria MG Enteric 1-09 tab, PO, l Coated 23:31: Daily, # [place] Tablet 00 90 tab, 3 Refill(s) Aspirin 81 2020-0 Yes 81 mg = 1 Me moria MG Enteric 1-09 tab, PO, l Coated 23:31: Daily, # [place] Tablet 00 90 tab, 3 Refill(s) Aspirin 81 2020-0 Yes 81 mg = 1 Me moria MG Enteric 1- tab, PO, l Coated 23:31: Daily, # [place] Tablet 00 90 tab, 3 Refill(s) Aspirin 81 2020-0 Yes 81 mg = 1 Me moria MG Enteric -09 tab, PO, l Coated 23:31: Daily, # [place] Tablet 00 90 tab, 3 Refill(s) Aspirin 81 2020-0 Yes 81 mg = 1 Me moria MG Enteric - tab, PO, l Coated 23:31: Daily, # [place] Tablet 00 90 tab, 3 Refill(s) Aspirin 81 2020-0 Yes 81 mg = 1 Me moria MG Enteric - tab, PO, l Coated 23:31: Daily, # [place] Tablet 00 90 tab, 3 Refill(s) Aspirin 81 2020-0 Yes 81 mg = 1 Me moria MG Enteric - tab, PO, l Coated 23:31: Daily, # [place] Tablet 00 90 tab, 3 Refill(s) Aspirin 81 2020-0 Yes 81 mg = 1 Me moria MG Enteric - tab, PO, l Coated 23:31: Daily, # [place] Tablet 00 90 tab, 3 Refill(s) Aspirin 81 2020-0 Yes 81 mg = 1 Me moria MG Enteric - tab, PO, l Coated 23:31: Daily, # [place] Tablet 00 90 tab, 3 Refill(s) Aspirin 81 2020-0 Yes 81 mg = 1 Me moria MG Enteric - tab, PO, l Coated 23:31: Daily, # [place] Tablet 00 90 tab, 3 Refill(s) Aspirin 81 2020-0 Yes 81 mg = 1 Me moria MG Enteric -09 tab, PO, l Coated 23:31: Daily, # [place] Tablet 00 90 tab, 3 Refill(s) Aspirin 81 2020-0 Yes 81 mg = 1 Me moria MG Enteric 1-09 tab, PO, l Coated 23:31: Daily, # [place] Tablet 00 90 tab, 3 Refill(s) Aspirin 81 2020-0 Yes 81 mg = 1 Me moria MG Enteric 1-09 tab, PO, l Coated 23:31: Daily, # [place] Tablet 00 90 tab, 3 Refill(s) Aspirin 81 2020-0 Yes 81 mg = 1 Me moria MG Enteric 1-09 tab, PO, l Coated 23:31: Daily, # [place] Tablet 00 90 tab, 3 Refill(s) Aspirin 81 2020-0 Yes 81 mg = 1 Me moria MG Enteric 1-09 tab, PO, l Coated 23:31: Daily, # [place] Tablet 00 90 tab, 3 Refill(s) Aspirin 81 2020-0 Yes 81 mg = 1 Me moria MG Enteric 1-09 tab, PO, l Coated 23:31: Daily, # [place] Tablet 00 90 tab, 3 Refill(s) oxcarbazepi 2020-0 Yes 150 mg = 1 Memoria ne 150 MG 1-09 tab, PO, l Oral Tablet 23:05: Bedtime, # [place] [Trileptal] 00 30 tab, 3 Refill(s), Pharmacy: [email or web address] #[id number] oxcarbazepi 2020-0 Yes 150 mg = 1 Memoria ne 150 MG 1-09 tab, PO, l Oral Tablet 23:05: Bedtime, # [place] [Trileptal] 00 30 tab, 3 Refill(s), Pharmacy: [facility] #[id number] oxcarbazepi 2020-0 Yes 150 mg = 1 Memoria ne 150 MG 1-09 tab, PO, l Oral Tablet 23:05: Bedtime, # [place] [Trileptal] 00 30 tab, 3 Refill(s), Pharmacy: [facility] #[id number] oxcarbazepi 2020-0 Yes 150 mg = 1 Memoria ne 150 MG 1-09 tab, PO, l Oral Tablet 23:05: Bedtime, # [place] [Trileptal] 00 30 tab, 3 Refill(s), Pharmacy: [facility] #[id number] oxcarbazepi 2020-0 Yes 150 mg = 1 Memoria ne 150 MG 1-09 tab, PO, l Oral Tablet 23:05: Bedtime, # [place] [Trileptal] 00 30 tab, 3 Refill(s), Pharmacy: [facility] #[id number] oxcarbazepi 2020-0 Yes 150 mg = 1 Memoria ne 150 MG 1-09 tab, PO, l Oral Tablet 23:05: Bedtime, # [place] [Trileptal] 00 30 tab, 3 Refill(s), Pharmacy: [facility] #[id number] oxcarbazepi 2020-0 Yes 150 mg = 1 Memoria ne 150 MG 1-09 tab, PO, l Oral Tablet 23:05: Bedtime, # [place] [Trileptal] 00 30 tab, 3 Refill(s), Pharmacy: [facility] #[id number] oxcarbazepi 2020-0 Yes 150 mg = 1 Memoria ne 150 MG 1-09 tab, PO, l Oral Tablet 23:05: Bedtime, # [place] [Trileptal] 00 30 tab, 3 Refill(s), Pharmacy: [facility] #[id number] oxcarbazepi 2020-0 Yes 150 mg = 1 Memoria ne 150 MG 1-09 tab, PO, l Oral Tablet 23:05: Bedtime, # [place] [Trileptal] 00 30 tab, 3 Refill(s), Pharmacy: [facility] #[id number] oxcarbazepi 2020-0 Yes 150 mg = 1 Memoria ne 150 MG 1-09 tab, PO, l Oral Tablet 23:05: Bedtime, # [place] [Trileptal] 00 30 tab, 3 Refill(s), Pharmacy: [facility] #[id number] oxcarbazepi 2020-0 Yes 150 mg = 1 Memoria ne 150 MG 1-09 tab, PO, l Oral Tablet 23:05: Bedtime, # [place] [Trileptal] 00 30 tab, 3 Refill(s), Pharmacy: [facility] #[id number] oxcarbazepi 2020-0 Yes 150 mg = 1 Memoria ne 150 MG 1-09 tab, PO, l Oral Tablet 23:05: Bedtime, # [place] [Trileptal] 00 30 tab, 3 Refill(s), Pharmacy: [facility] #[id number] oxcarbazepi 2020-0 Yes 150 mg = 1 Memoria ne 150 MG 1-09 tab, PO, l Oral Tablet 23:05: Bedtime, # [place] [Trileptal] 00 30 tab, 3 Refill(s), Pharmacy: [facility] #[id number] oxcarbazepi 2020-0 Yes 150 mg = 1 Memoria ne 150 MG 1-09 tab, PO, l Oral Tablet 23:05: Bedtime, # [place] [Trileptal] 00 30 tab, 3 Refill(s), Pharmacy: [facility] #[id number] oxcarbazepi 2020-0 Yes 150 mg = 1 Memoria ne 150 MG 1-09 tab, PO, l Oral Tablet 23:05: Bedtime, # [place] [Trileptal] 00 30 tab, 3 Refill(s), Pharmacy: [facility] #[id number] oxcarbazepi 2020-0 Yes 150 mg = 1 Memoria ne 150 MG 1-09 tab, PO, l Oral Tablet 23:05: Bedtime, # [place] [Trileptal] 00 30 tab, 3 Refill(s), Pharmacy: [facility] #[id number] oxcarbazepi 2020-0 Yes 150 mg = 1 Memoria ne 150 MG 1-09 tab, PO, l Oral Tablet 23:05: Bedtime, # [place] [Trileptal] 00 30 tab, 3 Refill(s), Pharmacy: [facility] #[id number] oxcarbazepi 2020-0 Yes 150 mg = 1 Memoria ne 150 MG 1-09 tab, PO, l Oral Tablet 23:05: Bedtime, # [place] [Trileptal] 00 30 tab, 3 Refill(s), Pharmacy: [facility] #[id number] oxcarbazepi 2020-0 Yes 150 mg = 1 Memoria ne 150 MG 1-09 tab, PO, l Oral Tablet 23:05: Bedtime, # [place] [Trileptal] 00 30 tab, 3 Refill(s), Pharmacy: [facility] #[id number] oxcarbazepi 2020-0 Yes 150 mg = 1 Memoria ne 150 MG 1-09 tab, PO, l Oral Tablet 23:05: Bedtime, # [place] [Trileptal] 00 30 tab, 3 Refill(s), Pharmacy: [facility] #[id number] atorvastati 2018-11 Yes 40 mg = 1 M emoria n 40 mg 2-11 tab, PO, l oral tablet 23:32: Daily, # Brendon monet 39 30 tab, 2 Refill(s), Pharmacy: [facility] #[id number] [employer] 2018-11 Yes 40 mg = 1 M emoria n 40 mg 2-11 tab, PO, l oral tablet 23:32: Daily, # He rmann 39 30 tab, 2 Refill(s), Pharmacy: [id number] Yes 40 mg = 1 M emoria n 40 mg 2-11 tab, PO, l oral tablet 23:32: Daily, # He rmann 39 30 tab, 2 Refill(s), Pharmacy: [facility][id number] [facility] Yes 40 mg = 1 M emoria n 40 mg 2-11 tab, PO, l oral tablet 23:32: Daily, # He rmann 39 30 tab, 2 Refill(s), Pharmacy: [facility] #[id number] [employer] 2018-11 Yes 40 mg = 1 M emoria n 40 mg 2-11 tab, PO, l oral tablet 23:32: Daily, # He rmann 39 30 tab, 2 Refill(s), Pharmacy: [facility] #[id number] [employer] 2018-11 Yes 40 mg = 1 M emoria n 40 mg 2-11 tab, PO, l oral tablet 23:32: Daily, # He rmann 39 30 tab, 2 Refill(s), Pharmacy: [facility] #[id number] [employer] 2018-11 Yes 40 mg = 1 M emoria n 40 mg 2-11 tab, PO, l oral tablet 23:32: Daily, # He rmann 39 30 tab, 2 Refill(s), Pharmacy: [facility] #[id number] [employer] 2018-11 Yes 40 mg = 1 M emoria n 40 mg 2-11 tab, PO, l oral tablet 23:32: Daily, # He rmann 39 30 tab, 2 Refill(s), Pharmacy: [facility] #[id number] [employer] 2018-11 Yes 40 mg = 1 M emoria n 40 mg 2-11 tab, PO, l oral tablet 23:32: Daily, # He rmann 39 30 tab, 2 Refill(s), Pharmacy: [facility] #[id number] [employer] 2018-11 Yes 40 mg = 1 M emoria n 40 mg 2-11 tab, PO, l oral tablet 23:32: Daily, # He rmann 39 30 tab, 2 Refill(s), Pharmacy: [facility] #[id number] [facility] 2018-11 Yes 40 mg = 1 M emoria n 40 mg 2-11 tab, PO, l oral tablet 23:32: Daily, # Brendon rmann 39 30 tab, 2 Refill(s), Pharmacy: [facility] #[id number] [facility] 2018-11 Yes 40 mg = 1 M emoria n 40 mg 2-11 tab, PO, l oral tablet 23:32: Daily, # He rmann 39 30 tab, 2 Refill(s), Pharmacy: [facility] #[id number] [facility] 2018-11 Yes 40 mg = 1 M emoria n 40 mg 2-11 tab, PO, l oral tablet 23:32: Daily, # Brendon rmann 39 30 tab, 2 Refill(s), Pharmacy: [facility] #[id number] [facility] 2018-11 Yes 40 mg = 1 M emoria n 40 mg 2-11 tab, PO, l oral tablet 23:32: Daily, # He rmann 39 30 tab, 2 Refill(s), Pharmacy: [facility] #[id number] [facility] 2018-11 Yes 40 mg = 1 M emoria n 40 mg 2-11 tab, PO, l oral tablet 23:32: Daily, # Brendon rmann 39 30 tab, 2 Refill(s), Pharmacy: [facility] #[id number] [facility] 2018-11 Yes 40 mg = 1 M emoria n 40 mg 2-11 tab, PO, l oral tablet 23:32: Daily, # He rmann 39 30 tab, 2 Refill(s), Pharmacy: [facility][id number] [facility]11 Yes 40 mg = 1 M emoria n 40 mg 2-11 tab, PO, l oral tablet 23:32: Daily, # He rmann 39 30 tab, 2 Refill(s), Pharmacy: [facility][id number] [facility] [place]11 Yes 40 mg = 1 M emoria n 40 mg 2-11 tab, PO, l oral tablet 23:32: Daily, # He rmann 39 30 tab, 2 Refill(s), Pharmacy: [facility] #[id number] atorvastati 2018-11 Yes 40 mg = 1 M emoria n 40 mg 2-11 tab, PO, l oral tablet 23:32: Daily, # He rmann 39 30 tab, 2 Refill(s), Pharmacy: [facility] #[id number] atorvasta 2018-11 Yes 40 mg = 1 M emoria n 40 mg 2-11 tab, PO, l oral tablet 23:32: Daily, # He rmann 39 30 tab, 2 Refill(s), Pharmacy: [facility] #[id number] [facility] 2018-11 Yes 25 mg = 1 Me moria 25 MG Oral 0-23 tab, PO, l Tablet 18:40: BID, # 60 Reece n [Topamax] 02 tab, 2 Refill(s), Pharmacy: [facility] #[id number] [facility] 2018-11 Yes 25 mg = 1 Me moria 25 MG Oral 0-23 tab, PO, l Tablet 18:40: BID, # 60 Reece n [Topamax] 02 tab, 2 Refill(s), Pharmacy: [facility] #[id number] [facility] 2018-11 Yes 25 mg = 1 Me moria 25 MG Oral 0-23 tab, PO, l Tablet 18:40: BID, # 60 Reece n [Topamax] 02 tab, 2 Refill(s), Pharmacy: [facility] #[id number] topiramate 2018-11 Yes 25 mg = 1 Me moria 25 MG Oral 0-23 tab, PO, l Tablet 18:40: BID, # 60 Reece n [Topamax] 02 tab, 2 Refill(s), Pharmacy: [facility] #[id number] topiramate 2018-11 Yes 25 mg = 1 Me moria 25 MG Oral 0-23 tab, PO, l Tablet 18:40: BID, # 60 Re[place] n [Topamax] 02 tab, 2 Refill(s), Pharmacy: [facility] #[id number] topiramate 2018-11 Yes 25 mg = 1 Me moria 25 MG Oral 0-23 tab, PO, l Tablet 18:40: BID, # 60 Reece n [Topamax] 02 tab, 2 Refill(s), Pharmacy: [facility] [place], [place] [address]mate 2018-11 Yes 25 mg = 1 Me moria 25 MG Oral 0-23 tab, PO, l Tablet 18:40: BID, # 60 Reece n [Topamax] 02 tab, 2 Refill(s), Pharmacy: [facility] #[address] [place], [place] [address]mate 2018-11 Yes 25 mg = 1 Me moria 25 MG Oral 0-23 tab, PO, l Tablet 18:40: BID, # 60 Reece n [Topamax] 02 tab, 2 Refill(s), Pharmacy: [facility] #[address] [place], [place] [address]mate 2018-11 Yes 25 mg = 1 Me moria 25 MG Oral 0-23 tab, PO, l Tablet 18:40: BID, # 60 Reece n [Topamax] 02 tab, 2 Refill(s), Pharmacy: [facility] #[address] [place], [place] [address]mate 2018-11 Yes 25 mg = 1 Me moria 25 MG Oral 0-23 tab, PO, l Tablet 18:40: BID, # 60 Reece n [Topamax] 02 tab, 2 Refill(s), Pharmacy: [facility] #[address] [place], [place] [address]mate 2018-11 Yes 25 mg = 1 Me moria 25 MG Oral 0-23 tab, PO, l Tablet 18:40: BID, # 60 Reece n [Topamax] 02 tab, 2 Refill(s), Pharmacy: [facility][id number] [facility] Yes 25 mg = 1 Me moria 25 MG Oral 0-23 tab, PO, l Tablet 18:40: BID, # 60 Reece n [Topamax] 02 tab, 2 Refill(s), Pharmacy: [facility] #[address] [place], [place] [address]iramate 2018-11 Yes 25 mg = 1 Me moria 25 MG Oral 0-23 tab, PO, l Tablet 18:40: BID, # 60 Reece n [Topamax] 02 tab, 2 Refill(s), Pharmacy: [facility] #[address] [place], [place] [address]mate 2018-11 Yes 25 mg = 1 Me moria 25 MG Oral 0-23 tab, PO, l Tablet 18:40: BID, # 60 Reece n [Topamax] 02 tab, 2 Refill(s), Pharmacy: [facility][id number] [facility] 2018[facility]11 Yes 25 mg = 1 Me moria 25 MG Oral 0-23 tab, PO, l Tablet 18:40: BID, # 60 Reece n [Topamax] 02 tab, 2 Refill(s), Pharmacy: [facility][id number] [facility] 2018[facility]11 Yes 25 mg = 1 Me moria 25 MG Oral 0-23 tab, PO, l Tablet 18:40: BID, # 60 Reece n [Topamax] 02 tab, 2 Refill(s), Pharmacy: [facility][id number] [facility] 2018[facility]11 Yes 25 mg = 1 Me moria 25 MG Oral 0-23 tab, PO, l Tablet 18:40: BID, # 60 Reece n [Topamax] 02 tab, 2 Refill(s), Pharmacy: [facility][id number] [facility] 2018[facility]11 Yes 25 mg = 1 Me moria 25 MG Oral 0-23 tab, PO, l Tablet 18:40: BID, # 60 Reece n [Topamax] 02 tab, 2 Refill(s), Pharmacy: [facility][id number] [facility] 2018[facility]11 Yes 25 mg = 1 Me moria 25 MG Oral 0-23 tab, PO, l Tablet 18:40: BID, # 60 Reece n [Topamax] 02 tab, 2 Refill(s), Pharmacy: [facility][id number] [facility] 2018[facility]11 Yes 25 mg = 1 Me moria 25 MG Oral 0-23 tab, PO, l Tablet 18:40: BID, # 60 Reece n [Topamax] 02 tab, 2 Refill(s), Pharmacy: [facility][id number] [facility] Yes 25 mg = 1 Me moria 25 MG Oral 8-21 tab, PO, l Tablet 15:45: Bedtime, # Mary nn [Topamax] 00 30 tab, 2 Refill(s), Pharmacy: [facility][id number] [facility]0 Yes 25 mg = 1 Me moria 25 MG Oral 8-21 tab, PO, l Tablet 15:45: Bedtime, # Mary nn [Topamax] 00 30 tab, 2 Refill(s), Pharmacy: [facility] #[id number] topiramate 2019-0 Yes 25 mg = 1 Me moria 25 MG Oral 8-21 tab, PO, l Tablet 15:45: Bedtime, # Mary nn [Topamax] 00 30 tab, 2 Refill(s), Pharmacy: [facility] #[id number] topiramate 2019-0 Yes 25 mg = 1 Me moria 25 MG Oral 8-21 tab, PO, l Tablet 15:45: Bedtime, # [place] nn [Topamax] 00 30 tab, 2 Refill(s), Pharmacy: [facility] #[id number] topiramate 2019-0 Yes 25 mg = 1 Me moria 25 MG Oral 8-21 tab, PO, l Tablet 15:45: Bedtime, # [place] nn [Topamax] 00 30 tab, 2 Refill(s), Pharmacy: [facility] #[id number] topiramate 2019-0 Yes 25 mg = 1 Me moria 25 MG Oral 8-21 tab, PO, l Tablet 15:45: Bedtime, # [place] nn [Topamax] 00 30 tab, 2 Refill(s), Pharmacy: [facility] #[id number] topiramate 2019-0 Yes 25 mg = 1 Me moria 25 MG Oral 8-21 tab, PO, l Tablet 15:45: Bedtime, # Mary nn [Topamax] 00 30 tab, 2 Refill(s), Pharmacy: [facility] #[id number] topiramate 2019-0 Yes 25 mg = 1 Me moria 25 MG Oral 8-21 tab, PO, l Tablet 15:45: Bedtime, # [place] nn [Topamax] 00 30 tab, 2 Refill(s), Pharmacy: [facility] #[id number] topiramate 2019-0 Yes 25 mg = 1 Me moria 25 MG Oral 8-21 tab, PO, l Tablet 15:45: Bedtime, # [place] nn [Topamax] 00 30 tab, 2 Refill(s), Pharmacy: [facility] #[id number] topiramate 2019-0 Yes 25 mg = 1 Me moria 25 MG Oral 8-21 tab, PO, l Tablet 15:45: Bedtime, # Mary nn [Topamax] 00 30 tab, 2 Refill(s), Pharmacy: [facility] #[id number] topiramate 2019-0 Yes 25 mg = 1 Me moria 25 MG Oral 8-21 tab, PO, l Tablet 15:45: Bedtime, # [place] nn [Topamax] 00 30 tab, 2 Refill(s), [facility][id number] topiramate 2019-0 Yes 25 mg = 1 Me moria 25 MG Oral 8-21 tab, PO, l Tablet 15:45: Bedtime, # Mary nn [Topamax] 00 30 tab, 2 Refill(s), [facility][id number] topiramate 2019-0 Yes 25 mg = 1 Me moria 25 MG Oral 8-21 tab, PO, l Tablet 15:45: Bedtime, # Mary nn [Topamax] 00 30 tab, 2 Refill(s), [facility][id number] topiramate 2019-0 Yes 25 mg = 1 Me moria 25 MG Oral 8-21 tab, PO, l Tablet 15:45: Bedtime, # Mary nn [Topamax] 00 30 tab, 2 Refill(s), [facility] #[id number] topiramate 2019-0 Yes 25 mg = 1 Me moria 25 MG Oral 8-21 tab, PO, l Tablet 15:45: Bedtime, # Mary nn [Topamax] 00 30 tab, 2 Refill(s), [facility] #[id number] topiramate 2019-0 Yes 25 mg = 1 Me moria 25 MG Oral 8-21 tab, PO, l Tablet 15:45: Bedtime, # Mary nn [Topamax] 00 30 tab, 2 Refill(s), [facility] #[id number] topiramate 2019-0 Yes 25 mg = 1 Me moria 25 MG Oral 8-21 tab, PO, l Tablet 15:45: Bedtime, # Mary nn [Topamax] 00 30 tab, 2 Refill(s), [facility] #[id number] topiramate 2019-0 Yes 25 mg = 1 Me moria 25 MG Oral 8-21 tab, PO, l Tablet 15:45: Bedtime, # Mary nn [Topamax] 00 30 tab, 2 Refill(s), [facility] #[id number] topiramate 2019-0 Yes 25 mg = 1 Me moria 25 MG Oral 8-21 tab, PO, l Tablet 15:45: Bedtime, # Mary nn [Topamax] 00 30 tab, 2 Refill(s), Pharmacy: [facility] STORE #[id number] topiramate 2019-0 Yes 25 mg = 1 Me moria 25 MG Oral 8-21 tab, PO, l Tablet 15:45: Bedtime, # Mary nn [Topamax] 00 30 tab, 2 Refill(s), [facility][id number] atorvastati 0 Yes PO, Daily, Memoria n [...] Yes 25 mg = 1 M emoria 821 tab, PO, l 15:00: Q6H, PRN rash / allergy symptoms, 0 Refill(s) Fluoxetine 20190 Yes 60 mg, PO, M emoria 8-21 Daily, 0 l 15:00: Refill(s) Zanaflex 20190 Yes 4 mg, PO, Rao caity 8 Q8H, 0 l 15:00: Refill(s) oxyCODONE Yes 10 mg = 1 Mem oria 10 mg oral 8 tab, PO, l tablet, 15:00: Q6H, 0 Refill(s) release gabapentin 0 Yes 600 mg, Rao caity 07-18 PO, TID, 0 l 15:00: Refill(s) Ambien 0 Yes 5 mg, PO, Memori a 07-18 [...] 20190 Yes 5 mg, PO, Memori a 821 Bedtime, 0 l 15:00: Refill(s) Lidocaine 0 Yes See Memoria 8 Instructio l 15:00: ns, 5 % Transderma l q12, 0 Refill(s) Protonix 0 Yes 40 mg, PO, Mem oria 821 Daily, 0 l 15:00: Refill(s) Ondansetron 0 Yes 4 mg = 1 Me moria 4 MG Oral 8-21 tab, PO, l Tablet 15:00: Q8H, 0 [Zofran] Refill(s) Hydroxyzine 0 Yes 25 mg = 1 M emoria 8-21 tab, PO, l 15:00: Q6H, PRN rash / allergy symptoms, 0 Refill(s) Fluoxetine 20190 Yes 60 mg, PO, M emoria 821 Daily, 0 l 15:00: Refill(s) Zanaflex 20190 [...] Q8H, 0 [place] [Zofran] Refill(s) Hydroxyzine 2019 Yes 25 mg = 1 M emoria 8-21 tab, PO, l 15:00: Q6H, PRN rash / allergy symptoms, 0 Refill(s) Fluoxetine 2019-0 Yes 60 mg, PO, M emoria 821 Daily, 0 l 15:00: Refill(s) Zanaflex 2019-0 [...] l 15:00: Refill(s) Lidocaine 2019-0 Yes See oria 07-18 Instructio l 15:00: ns, 5 % Transderma l q12, 0 Refill(s) Protonix 2019-0 Yes 40 mg, PO, Mem oria 8-21 Daily, 0 l 15:00: Refill(s) Ondansetron 2019-0 Yes 4 mg = 1 Me moria 4 MG Oral 8-21 tab, PO, l Tablet 15:00: Q8H, 0 [place] [Zofran] Refill(s) Hydroxyzine 20190 Yes 25 mg = [...] PO, l tablet, 15:00: Q6H, 0 immediate 00 Refill(s) release gabapentin 0 Yes 600 mg, Rao caity 8-21 PO, TID, 0 l 15:00: Refill(s) Ambien 20190 Yes 5 mg, PO, Memori a 8-21 Bedtime, 0 l 15:00: Refill(s) Lidocaine Yes See Memoria 8 Instructio l 15:00: [...] Fluoxetine Yes 60 mg, PO, M emoria 821 Daily, 0 l 15:00: Refill(s) Zanaflex 0 [...] = 1 Me moria 4 MG Oral 821 tab, PO, l Tablet 15:00: Q8H, 0 [...] = 1 Mem oria 10 mg oral 07-18 tab, PO, l tablet, 15:00: Q6H, 0 [place] Refill(s) release gabapentin 2019-0 Yes 600 mg, Rao caity 07-18 PO, TID, 0 l 15:00: Refill(s) Ambien 20190 Yes 5 mg, PO, Memori a 07-18 Bedtime, 0 l 15:00: Refill(s) Lidocaine 2019-0 Yes See Memoria 07-18 Instructio l 15:00: ns, 5 % Transderma l q12, 0 Refill(s) Protonix 2019-0 Yes 40 mg, PO, Mem oria 07-18 Daily, 0 l 15:00: Refill(s) Ondansetron 2019-0 [...] 20190 Yes 4 mg, PO, Rao caity 8- [...] Refill(s) release gabapentin 0 Yes 600 mg, Aro caity 8-21 PO, TID, 0 l 15:00: [...] Yes 25 mg = 1 M emoria 821 tab, PO, l 15:00: Q6H, PRN rash / allergy symptoms, 0 Refill(s) Fluoxetine 20190 Yes 60 mg, PO, M emoria 8-21 Daily, 0 l 15:00: Refill(s) Zanaflex 20190 Yes 4 mg, PO, Rao caity 8 Q8H, 0 l 15:00: Refill(s) oxyCODONE Yes 10 mg = 1 Mem oria 10 mg oral 8 tab, PO, l tablet, 15:00: Q6H, 0 Refill(s) release gabapentin 0 Yes 600 mg, Rao caity 07-18 PO, TID, 0 l 15:00: Refill(s) Ambien 0 Yes 5 mg, PO, Memori a 07-18 [...] 20190 Yes 5 mg, PO, Memori a 821 Bedtime, 0 l 15:00: Refill(s) Lidocaine 0 Yes See Memoria 8 Instructio l 15:00: ns, 5 % Transderma l q12, 0 Refill(s) Protonix 0 Yes 40 mg, PO, Mem oria 821 Daily, 0 l 15:00: Refill(s) Ondansetron 0 Yes 4 mg = 1 Me moria 4 MG Oral 8-21 tab, PO, l Tablet 15:00: Q8H, 0 [Zofran] Refill(s) Hydroxyzine 0 Yes 25 mg = 1 M emoria 8-21 tab, PO, l 15:00: Q6H, PRN rash / allergy symptoms, 0 Refill(s) Fluoxetine 20190 Yes 60 mg, PO, M emoria 821 Daily, 0 l 15:00: Refill(s) Zanaflex 20190 [...] Q8H, 0 [place] [Zofran] Refill(s) Hydroxyzine 2019 Yes 25 mg = 1 M emoria 8-21 tab, PO, l 15:00: Q6H, PRN rash / allergy symptoms, 0 Refill(s) Fluoxetine 2019-0 Yes 60 mg, PO, M emoria 821 Daily, 0 l 15:00: Refill(s) Zanaflex 2019-0 [...] l 15:00: Refill(s) Lidocaine 2019-0 Yes See oria 07-18 Instructio l 15:00: ns, 5 % Transderma l q12, 0 Refill(s) Protonix 2019-0 Yes 40 mg, PO, Mem oria 8-21 Daily, 0 l 15:00: Refill(s) Ondansetron 2019-0 Yes 4 mg = 1 Me moria 4 MG Oral 8-21 tab, PO, l Tablet 15:00: Q8H, 0 [place] [Zofran] Refill(s) Hydroxyzine 20190 Yes 25 mg = 1 M emoria 8-21 tab, PO, l 15:00: Q6H, PRN rash / allergy symptoms, 0 Refill(s) Fluoxetine 2019 Yes 60 mg, PO, M emoria 8-21 Daily, 0 l 15:00: Refill(s) Zanaflex 20190 Yes 4 mg, PO, Rao caity 8-21 Q8H, 0 l 15:00: Refill(s) Zanaflex 20190 Yes [...] release gabapentin Yes 600 mg, Rao caity 8 PO, TID, 0 l 15:00: Refill(s) Ambien 0 Yes 5 mg, PO, Memori a 07-18 [...] a 8-21 Bedtime, 0 l 15:00: Refill(s) Zanaflex 20190 Yes 4 mg, PO, Rao caity 8-21 Q8H, 0 l 15:00: Refill(s) oxyCODONE 20190 Yes 10 mg = 1 Mem oria [...] 8-21 Daily, 0 l 15:00: Refill(s) Ondansetron 0 [...] 0 Yes 4 mg, PO, Rao caity 8- Q8H, 0 l 15:00: Refill(s) oxyCODONE 2019- Yes 10 mg = 1 Mem oria 10 mg oral 821 tab, PO, l tablet, 15:00: Q6H, 0 [place] immediate 00 Refill(s) release gabapentin 2019-0 Yes 600 mg, Rao caity 07-18 PO, TID, 0 l 15:00: Refill(s) Ambien 20190 Yes 5 mg, PO, Memori a 07-18 Bedtime, 0 l 15:00: Refill(s) Lidocaine 2019-0 Yes See Memoria 07-18 Instructio l 15:00: ns, 5 % Transderma l q12, 0 Refill(s) Protonix 2019-0 Yes 40 mg, PO, Mem oria 8 Daily, 0 l 15:00: Refill(s) Ondansetron 2019 Yes 4 mg = 1 Me moria 4 MG Oral 07-18 tab, PO, l Tablet 15:00: Q8H, 0 [place] [Zofran] 00 Refill(s) Hydroxyzine 2019 Yes 25 mg = 1 M emoria 8-21 tab, PO, l 15:00: Q6H, PRN rash / allergy symptoms, 0 Refill(s) Ondansetron 20190 Yes 4 mg = 1 Me moria 4 MG Oral 21 tab, PO, l Tablet 15:00: Q8H, 0 [place] [Zofran] 00 Refill(s) Fluoxetine 2019-0 Yes 60 mg, PO, M emoria 8-21 Daily, 0 l 15:00: Refill(s) Hydroxyzine 2019- Yes 25 mg = 1 M emoria 8-21 tab, PO, l 15:00: Q6H, PRN rash / allergy symptoms, 0 Refill(s) Fluoxetine 2019-0 Yes 60 mg, PO, M emoria 8-21 Daily, 0 l 15:00: Refill(s) [place] 00 Immunizations Ordered Filled Immunization Date Status Comments [facility] e Immunization Name Name SARS-COV-2 COVID-19 2021-04-06 Completed Unive rsity of MODERNA VACCINE 00:00:00 [facility] SARS-COV-2 COVID-19 2021-04-06 Completed Unive rsity of MODERNA VACCINE 00:00:00 [facility] SARS-COV-2 COVID-19 2021-04-06 Completed Unive rsity of MODERNA VACCINE 00:00:00 [facility] SARS-COV-2 COVID-19 2021-04-06 Completed Unive rsity of MODERNA VACCINE 00:00:00 [facility] SARS-COV-2 COVID-19 2021-04-06 Completed Unive rsity of MODERNA VACCINE 00:00:00 [facility] [id number] 2021-04-06 Completed Memor ial [place] RNA-1273vaxMODERNA< 00:00:00 sup>1</sup> RRSH-[id number]-19 2021-04-06 Completed Memor ial [place] RNA-1273vaxMODERNA< 00:00:00 sup>1</sup> [id number]-[id number]-19 2021-04-06 Completed Memor ial [place] RNA-1273vaxMODERNA< 00:00:00 sup>1</sup> [id number] 2021-04-06 Completed Mem[facility] ial [place] RNA-1273vaxMODERNA< 00:00:00 sup>1</sup> OJLD-EwB-3FLLEH-[facility] 2021-04-06 Completed Memor ial [place] RNA-1273vaxMODERNA< 00:00:00 sup>1</sup> SIEG-NoZ-[id number]-[id number] 2021-04-06 Completed Memor ial [place] RNA-1273vaxMODERNA< 00:00:00 sup>1</sup> XOFT-[id number] 2021-04-06 Completed Memor ial [place] RNA-1273vaxMODERNA< 00:00:00 sup>1</sup> LHRN-XfO-[id number]-19 2021-04-06 Completed [facility] ial [place] RNA-1273vaxMODERNA< 00:00:00 sup>1</sup> MEUK-FrR-3ALRHX- 2021-04-06 Completed [facility] ial [place] RNA-1273vaxMODERNA< 00:00:00 sup>1</sup> GIHV-SfI-4PZRLD- 2021-04-06 Completed [facility] [place] RNA-1273vaxMODERNA< 00:00:00 sup>1</sup> ULOK-UpO-9VNSXC-[facility] 2021-04-06 Completed Memor ial [place] RNA-1273vaxMODERNA< 00:00:00 sup>1</sup> NYKA-ObF-6CHUGZ- 2021-04-06 Completed Mem[facility] ial [place] RNA-1273vaxMODERNA< 00:00:00 sup>1</sup> KYNS-NcX-0XYRAQ-[facility] 2021-04-06 Completed Memor ial [place] RNA-1273vaxMODERNA< 00:00:00 sup>1</sup> MCMC-LuZ-0QXGNV-[facility] 2021-04-06 Completed Memor ial [place] RNA-1273vaxMODERNA< 00:00:00 sup>1</sup> PVDQ-OxI-9VLIAZ- 2021-04-06 Completed Memor ial [place] RNA-1273vaxMODERNA< 00:00:00 sup>1</sup> TKDF-WzZ-9BWERU-[facility] 2021-04-06 Completed Memor ial [place] RNA-1273vaxMODERNA< 00:00:00 sup>1</sup> DGZV-GlN-0BROVM- 2021-04-06 Completed Memor ial [place] RNA-1273vaxMODERNA< 00:00:00 sup>1</sup> UIFX-AvG-1FCCQU- 2021-04-06 Completed Memor ial [place] RNA-1273vaxMODERNA< 00:00:00 sup>1</sup> BUVK-KlF-0GJUPO-[facility] 2021-04-06 Completed Memor ial [place] RNA-1273vaxMODERNA< 00:00:00 sup>1</sup> [id number]-FyI-[id number]-19m 2021-04-06 Completed Megan Gay RNA-1273vaxMODERNA< 00:00:00 sup>1</sup> SARS-COV-2 COVID-19 2021-03-12 Completed Unive rsity of MODERNA VACCINE 00:00:00 [facility] SARS-COV-2 COVID-19 2021-03-12 Completed Unive rsity of MODERNA VACCINE 00:00:00 [facility] SARS-COV-2 COVID-19 2021-03-12 Completed Unive rsity of MODERNA VACCINE 00:00:00 [facility] SARS-COV-2 COVID-19 2021-03-12 Completed Unive rsity of MODERNA VACCINE 00:00:00 [facility] SARS-COV-2 COVID-19 2021-03-12 Completed Unive rsity of MODERNA VACCINE 00:00:00 [facility] Influenza Virus 2020-11-28 Completed Universit y of Vaccine (3+ yrs) 00:00:00 [facility] Influenza Virus 2020-11-28 Completed Universit y of Vaccine (3+ yrs) 00:00:00 [facility] Influenza Virus 2020-11-28 Completed Universit y of Vaccine (3+ yrs) 00:00:00 [facility] Influenza Virus 2020-11-28 Completed Universit y of Vaccine (3+ yrs) 00:00:00 [facility] Influenza Virus 2020-11-28 Completed Universit y of Vaccine (3+ yrs) 00:00:00 [facility] Influenza Virus 2017-10-06 Completed Universit y of Vaccine Quad IM, 00:00:00 [facility] dical Preserv and ABX Branch Free 2-64 YRS Pneumococcal 13 2017-10-06 Completed Universit y of Conjugate, PCV13 00:00:00 [facility] dical (Prevnar 13) Branch Influenza Virus 2017-10-06 Completed Universit y of Vaccine Quad IM, 00:00:00 [facility] dical Preserv and ABX Branch Free 2-64 YRS Pneumococcal 13 2017-10-06 Completed Universit y of Conjugate, PCV13 00:00:00 [facility] dical (Prevnar 13) Branch Influenza Virus 2017-10-06 Completed Universit y of Vaccine Quad IM, 00:00:00 [facility] dical Preserv and ABX Branch Free 2-64 YRS Pneumococcal 13 2017-10-06 Completed Universit y of Conjugate, PCV13 00:00:00 [facility] dical (Prevnar 13) Branch Influenza Virus 2017-10-06 Completed Universit y of Vaccine Quad IM, 00:00:00 [facility] dical Preserv and ABX Branch Free 2-64 YRS Pneumococcal 13 2017-10-06 Completed Universit y of Conjugate, PCV13 00:00:00 [facility] dical (Prevnar 13) Branch Influenza Virus 2017-10-06 Completed Universit y of Vaccine Quad IM, 00:00:00 [facility] dical Preserv and ABX Branch Free 2-64 YRS Pneumococcal 13 2017-10-06 Completed Universit y of Conjugate, PCV13 00:00:00 [facility] dical (Prevnar 13) [place] Vital Signs Vital Name Observation Time Observation Value Comments Source Systolic blood 2021-08-14 15:39:00 130 [facility]Hg[facility] Diastolic blood 2021-08-14 15:39:00 81 mm[Hg] [facility] pressure [facility] Heart rate 2021-08-14 15:39:00 76 /min [facility] Body temperature 2021-08-14 15:39:[address] [facility] Respiratory rate 2021-08-14 15:39:00 18 /min [facility] Body height 2021-08-14 15:39:00 162.6 cm [facility] Body weight 2021-08-14 15:39:00 53.933 kg [facility] BMI 2021-08-14 15:39:00 20.41 kg/m2 [facility] Oxygen saturation in 2021-08-14 15:39:00 100 /min [facility] Arterial blood by [facility] Pulse oximetry Branch Systolic (mm Hg) 2021-04-08 14:16:00 Rao Gay Diastolic (mm Hg) 2021-04-08 14:16:00 Olimpia Gay Heart Rate 2021-04-08 14:16:00 [facility] Respitory Rate 2021-04-08 14:16:00 [facility] [place] Height 2021-04-08 14:16:00 162.56 cm [facility] [place] Weight 2021-04-08 14:16:00 [facility] [place] BMI Calculated 2021-04-08 14:16:00 Memori [facility] [place] Systolic (mm Hg) 2020-12-22 20:47:00 Rao rial [place] Diastolic (mm Hg) 2020-12-22 20:47:00 Mem orial [place] Height 2020-12-22 20:47:00 162.56 cm [facility] [place] Weight 2020-12-22 20:47:00 [facility] [place] BMI Calculated 2020-12-22 20:47:00 Memori al [place] Systolic (mm Hg) 2020-07-31 18:42:00 Rao rial [place] Diastolic (mm Hg) 2020-07-31 18:42:00 Mem orial [place] Heart Rate 2020-07-31 18:42:00 [facility] [place] Respitory Rate 2020-07-31 18:42:00 Memori al [place] Height 2020-07-31 18:42:00 162.56 cm [facility] [place] Weight 2020-07-31 18:42:00 [facility] [place] BMI Calculated 2020-07-31 18:42:00 Memori al [place] Temperature Oral (F) 2020-07-31 18:42:00 96.9 F [facility] [place] Systolic (mm Hg) 2020-01-22 17:49:00 Rao rial [place] Diastolic (mm Hg) 2020-01-22 17:49:00 Mem orial [place] Heart Rate 2020-01-22 17:49:00 [facility] [place] Respitory Rate 2020-01-22 17:49:00 Memori al [place] Height 2020-01-22 17:49:00 162.56 cm [facility] [place] Weight 2020-01-22 17:49:00 [facility] [place] BMI Calculated 2020-01-22 17:49:00 Memori al [place] Systolic (mm Hg) 2020-01-11 21:53:00 Rao rial [place] Diastolic (mm Hg) 2020-01-11 21:53:00 Mem orial [place] Heart Rate 2020-01-11 21:53:00 [facility] [place] Height 2020-01-11 21:53:00 162.56 cm [facility] [place] Weight 2020-01-11 21:53:00 [facility] [place] BMI Calculated 2020-01-11 21:53:00 Memori al [place] Systolic (mm Hg) 2019-12-06 22:16:00 Rao rial [place] Diastolic (mm Hg) 2019-12-06 22:16:00 Mem orial [place] Heart Rate 2019-12-06 22:16:00 [facility] [place] Respitory Rate 2019-12-06 22:16:00 Memori al [place] Height 2019-12-06 22:16:00 162.56 cm [facility] [place] Weight 2019-12-06 22:16:00 [facility] [place] BMI Calculated 2019-12-06 22:16:00 Memori al [place] BMI Calculated 2019-11-09 17:41:00 Memori [facility] [place] Height 2019-11-09 17:41:00 162.56 cm [facility] [place] Weight 2019-11-09 17:41:00 [facility] [place] Systolic (mm Hg) 2019-09-19 18:12:00 Rao rial [place] Diastolic (mm Hg) 2019-09-19 18:12:00 Mem orial Victor [place] Heart Rate 2019-09-19 18:12:00 [facility] [place] Respitory Rate 2019-09-19 18:12:00 Memori al [place] Height 2019-09-19 18:12:00 162.56 cm [facility] [place] Weight 2019-09-19 18:12:00 [facility] [place] BMI Calculated 2019-09-19 18:12:00 Memori al [place] Systolic (mm Hg) 2019-08-23 19:05:00 Rao rial [place] Diastolic (mm Hg) 2019-08-23 19:05:00 Mem orial [place] Heart Rate 2019-08-23 19:05:00 [facility] [place] Respitory Rate 2019-08-23 19:05:00 Memori al [place] Height 2019-08-23 19:05:00 162.56 cm [facility] [place] Weight 2019-08-23 19:05:00 [facility] [place] BMI Calculated 2019-08-23 19:05:00 Memori al [place] Systolic (mm Hg) 2019-07-18 14:57:00 Rao rial [place] Diastolic (mm Hg) 2019-07-18 14:57:00 Mem orial [place] Heart Rate 2019-07-18 14:57:00 Yuliana Gay Respitory Rate 2019-07-18 14:57:00 May [place] Height 2019-07-18 14:57:00 162.56 cm Yuliana Gay Weight 2019-07-18 14:57:00 Yuliana Gay BMI Calculated 2019-07-18 14:57:00 May [place] Procedures Procedure Date / Time Performing Clinician Source Performed ASSIGNMENT OF BENEFITS 2021-08-14 15:11:27 Doctor Unassigned, No [facility] Arthroplasty [facility] Laminectomy [facility] Encounters Start End Encounter Admission Attending Care Care Encounter Source Date/Time Date/Time Type Type Clinicians Facility Department ID 2021-06-08 Inpatient EL Eulogio, [facility] DAYS [id number] [facility] 10:30:00 [place] [id number] 2021-06-05 Inpatient EL Eulogio, [facility] DAYS [id number] [facility] 11:30:00 [place] [id number] [facility] 2021-05-19 Inpatient Eulogio, [facility] DAYS [id number] [facility] 07:30:00 [place] [id number] [facility] 2021-05-15 Inpatient EL Eulogio, [facility] DAYS [id number] [facility] 14:00:00 [place] [id number] [facility] 2022-08-20 2022-08-[address] [facility] [id number] Univers 10:30:00 10:30:00 [id number] [facility] 2022-08-20 2022-08-[address] [facility] [id number] Univers 10:30:00 10:30:00 [facility] 2021-08-31 2021-08-31 Outpatient EULOGIO, [facility] [id number] [place] 00:00:00 00:00:00 [place] [address] 2021-08-27 2021-08-27 Outpatient EULOGIO, [facility] [id number] [place] 00:00:00 00:00:00 [place] [address] 2021-08-24 2021-08-24 Outpatient EULOGIO, [facility] [id number] [address] [place] [address] 00:00:00 00:00:00 [place] 384 [facility] 2021-08-20 2021-08-20 Outpatient EULOGIO, [facility] [id number] [place] 00:00:00 00:00:00 [place] 342 [facility] 2021-08-19 2021-08-19 Outpatient EULOGIO, [facility] [id number] [place] 00:00:00 00:00:00 [place] 343 [facility] i 2021-08-14 2021-08-14 [facility] [id number] [facility] 10:12:38 10:59:24 Visit Cezar Lopez [id number] it y [facility] [id number] [facility] [id number] [address] 2021-08-14 2021-08-14 Outpatient [address] TONY DAS [facility] [id number] [facility] 10:15:00 10:15:00 ity of [facility] 2021-08-14 2021-08-14 Orders Doctor [place] [id number] [facility] 00:00:00 00:00:00 Only Unassigned, LISA [id number] ity of [place] [id number] [facility] [id number] [address] 2021-08-10 2021-08-10 Outpatient EULOGIO, [facility] [id number] [place] 00:00:00 00:00:00 [place] 230 [facility] 2021-08-06 2021-08-06 Outpatient EULOGIO, [facility] [id number] [place] 00:00:00 00:00:00 [place] 205 [facility] i 2021-07-30 2021-07-30 Outpatient EULOGIO, [facility] [id number] [place] 00:00:00 00:00:00 [place] 805 Method i 2021-07-27 2021-07-27 Outpatient EULOGIO, [facility] [id number] [place] 00:00:00 00:00:00 [place] 774 [facility] i 2021-07-23 2021-07-23 Outpatient EULOGIO, [facility] [id number] [place] 00:00:00 00:00:00 [place] 727 [facility] i 2021-07-20 2021-07-20 Outpatient EULOGIO, [facility] [id number] [place] 00:00:00 00:00:00 [place] 774 Method i 2021-07-09 2021-07-09 Outpatient EULOGIO, [facility] [id number] [place] 00:00:00 00:00:00 [place] 643 Method i 2021-07-08 2021-07-08 Outpatient EULOGIO, [facility] [id number] [place] 00:00:00 00:00:00 [place] 592 [facility] i 2021-07-02 2021-07-02 Outpatient EULOGIO, [facility] [id number] [place] 00:00:00 00:00:00 [place] 982 [facility] i 2021-06-23 2021-06-23 Outpatient EULOGIO, [facility] [id number] [place] 00:00:00 00:00:00 [place] 244 [facility] i 2021-06-09 2021-06-11 Inpatient RODNEY Patterson, [facility] [id number].01 [id number] [facility] 16:03:00 15:30:00 Re[place] [id number] [facility] 2021-06-09 2021-06-09 Outpatient Jason Bearden [facility] [id number] [facility] 16:08:00 16:08:00 [id number] [facility] 2021-04-08 2021-04-09 Outpatient nullFlavo MNA [id number] [facility] 14:00:00 04:59:59 r Neurology 16 l Elvin Gay 2020-12-26 2020-12-28 Outside nullFlavo MNA [id number] Memoria 17:32:20 05:59:59 Medical r Neurology 00 l Records Elvin Gay 2020-12-22 2020-12-23 Outpatient nullFlavo MNA [id number] Mem[facility] 20:30:00 05:59:59 r Neurology 15 l Elvin Gay 2020-12-04 2020-12-04 Ambulatory nullFlavo MNA [id number] [facility] 19:15:00 19:15:00 Pre-Reg r Neurology 14 l Elvin Gay 2020-09-30 2020-09-30 Outpatient EULOGIO, [facility] [id number] [place] 00:00:00 00:00:00 [facility] [place] 2020-07-31 2020-08-01 Outpatient nullFlavo MNA [id number] [facility] 18:15:00 04:59:59 r Neurology 13 l [place] 2020-07-29 2020-07-29 Ambulatory nullFlavo MNA [id number] [facility] 16:15:00 16:15:00 Pre-Reg r Neurology 12 l [place] 2020-06-06 2020-06-06 Ambulatory nullFlavo MNA [id number] [facility] 18:00:00 18:00:00 Pre-Reg r Neurology 11 l [place] 2020-03-12 2020-03-13 Outpatient nullFlavo MNA [id number] [facility] 18:45:00 04:59:59 r Neurology 09 l [place] 2020-01-22 2020-01-23 Outpatient nullFlavo MNA [id number] [facility] 17:45:00 05:59:59 r Neurology 10 l [place] 2020-01-11 2020-01-12 Outpatient nullFlavo MNA [id number] [facility] 20:15:00 05:59:59 r Neurology 08 l [place] 2020-01-11 2020-01-11 Ambulatory nullFlavo MNA [id number] [facility] 20:15:00 20:15:00 Pre-Reg r Neurology 07 l [place] 2019-12-06 2019-12-07 Outpatient nullFlavo MNA [id number] [facility] 22:00:00 05:59:59 r Neurology 06 l [place] [facility] [place] 2019-12-05 2019-12-05 Ambulatory nullFlavo MNA [id number] [facility] 14:15:00 14:15:00 Pre-Reg r Neurology 05 l Elvin Gay 2019-11-16 2019-11-16 Ambulatory nullFlavo MNA [id number] [facility] 19:00:00 19:00:00 Pre-Reg r Neurology 03 l [place] 2019-11-09 2019-11-10 Outpatient nullFlavo MNA [id number] [facility] 17:30:00 05:59:59 r Neurology 04 l [place] 2019-09-19 2019-09-20 Outpatient nullFlavo MNA [id number] [facility] 18:00:00 04:59:59 r Neurology 02 l Elvin Gay 2019-08-23 2019-08-24 Outpatient nullFlavo MNA [id number] [facility] 18:30:00 04:59:59 r Neurology 01 l Elvin Gay 2019-07-18 2019-07-19 Outpatient nullFlavo MNA [id number] [facility] 14:15:00 04:59:59 r Neurology 00 baldemar Gay Results Test Description Test Time Test Comments Results Result Comments Source INFECTION CONTROL PROFILE 2021-06-13 18:10:00 Test Item Value Reference Range Interpretation Comme nts HEPATITIS C RNA BY Negative Negative Negative: HCV RNA Not PCR-QUAL (test code = Detect edPerformed At: BN HCVRNAPCR) [facility] [place], [place] [id number] ra Danielle SALINAS Ph:[phone] AG HEPATITIS B SURFACE NON REACTIVE INDEX NonReactive (test code = HBSAG) AB HIV 1 2 (test code NONREACTIVE INDEX NONREACTIVE = PPL36DP) HIV 1/2 RAPID SCREEN NONREACTIVE NONREACTIVE Critic al result called to (test code = [id number]) TED BROTHERS RN/Foreign ColonLAB.UN at 165 9 06/09/21Nmy arcos back resut and tech confir med it's correct? Y AG HIV1 P24 (test code NONREACTIVE NONREACTIVE = [id number]) BASIC METABOLIC [id number] 07:47:00 Test Item Value Reference Range Interpretation [...] code = 9.0 mg/dL 8.0-10.5 N CA) [id number] 07:47:00 Test Item Value Reference Range Interpretation Comments MAGNESIUM (test code = MAG) 1.91 mg/dL 1.80-2.40 N CBC W/AUTO [id number] 07:13:00 Test Item Value Reference Range Interpretation [...] (test NO code = MDIFF) INFECTION CONTROL [id number] 17:05:00 Test Item Value Reference Range Interpretation Comments HEPATITIS C RNA BY PCR-QUAL (test code = HCVRNAPCR) AG HEPATITIS B NON REACTIVE INDEX NonReactive SURFACE (test code = HBSAG) AB HIV 1 2 (test NONREACTIVE INDEX NONREACTIVE code = [id number]) HIV 1/2 RAPID NONREACTIVE NONREACTIVE Critical resu lt SCREEN (test code called to KEHINDE = [id number]) ANGELA BROTHERS/Riya brewer G.LAB.UN at 165 9 06/09/21Nurse read back resut and tech confirmed it's correct? Y AG HIV1 P24 (test NONREACTIVE NONREACTIVE code = [id number]) INFECTION CONTROL [id number] 17:01:00 Test Item Value Reference Range Interpretation Comments HEPATITIS C RNA BY PCR-QUAL (test code = HCVRNAPCR) AG HEPATITIS B INDEX NonReactive SURFACE (test code = HBSAG) AB HIV 1 2 (test INDEX NONREACTIVE code = [id number]) HIV 1/2 RAPID SCREEN NONREACTIVE NONREACTIVE Critic al result (test code = called to TED [place] [id number]) ANGELA BROTHERS/Riya brewer G.LAB.UN at 165 9 06/09/21Nurse r ead back resut and tech confirmed it's correct? Y AG HIV1 P24 (test NONREACTIVE NONREACTIVE code = [id number]) COVID 19 Asymptomatic IH [id number] 13:43:00 Test Item Value Reference Range Interpretation [...] waivedcomplexit y tests. - XR CHEST 2 [id number] 13:06:00 [facility] 1965 Sex: F FAX: Dennis Graves MD [phone] [place]: St: PRE FAX: Beverly Cartagena MD [phone] FAX: Katherine Ma [facility] 1965 Age/S: 55/F [address] [place] [address] Unit #: [id number] Loc: [place] [address] Phys: Katherine Ma NP Acct: [id number] Dis Date: Status: PRE SDC PHONE #: [phone] Exam Date: 06/08/2021 1143 FAX #: [phone] Reason: PREOP EXAMS: CPT CODE: [id number] XR CHEST 2 V 67446 Clinical Indication: Preoperative evaluation. Comparison: 03/08/2019. Impression: Chest, 2 views. No consolidation, pleural effusion, or pneumothorax. Cardiac silhouette is of normal size. No acute osseous abnormality. Thoracic spinal stimulating device is in place. SL: [id number] at 1306 Reported and signed by: Brian Mendes M.D. CC: Dennis Chaves MD; Beverly Cartagena MD; Katherine Ma NP Technologist: RT Milly(Tasia) Trnscrd Date/Time/By: 06/08/2021 (3123) : By: [email or web address] Orig Print D/T: S: 06/08/2021 (0119) PAGE 1 Signed ReportBASIC METABOLIC [id number] 11:59:00 Test Item Value Reference Range Interpretation [...] 8.9 mg/dL 8.0-10.5 N CA) CBC W/AUTO [id number] 11:55:00 Test Item Value Reference Range Interpretation [...] code NO = MDIFF) AFB CULTURE + [id number] 12:03:00 Test Item Value Reference Range Interpretation Comments CULTURE (BEAKER) (test No acid-fast bacilli code = 1095) isolated in 42 days AFB SMEAR (BEAKER) No acid fast bacilli (test code = 994) seen FUNGUS CULTURE + [id number] 18:46:00 Test Item Value Reference Range Interpretation Comments CULTURE (BEAKER) A 1+ Jo-Ann albicans (test code = 1095) FUNGUS SMEAR No fungi seen (BEAKER) (test code = 1406) MISCELLANEOUS LAB [id number] 07:43:00 Test Item Value Reference Range Interpretation Comments SCAN RESULT (test code = 5022871) CBC W/PLT COUNT & AUTO [id number] 11:31:00 Test Item Value Reference Range Interpretation [...] PERCENT (BEAKER) (test code = 2801) POCT-GLUCOSE [id number] 08:15:00 Test Item Value Reference Range Interpretation Comments POC-GLUCOSE METER 87 mg/dL 70-110 : TESTED A T [facility] (BEAKER) (test code = [place], 1538) 737[address]: Paper Products Inspector/Techni theo ID = [id number] for GINNY PULIDO [id number] 08:08:00 Test Item Value Reference Range Interpretation Comments MAGNESIUM (BEAKER) 1.6 mg/dL 1.6-2.6 Specimen slightly (test code = 627) hemolyzed COMPREHENSIVE METABOLIC [id number] 08:08:00 Test Item Value Reference Range Interpretation [...] NOT APPLICABLE FOR DIALYSIS PATIEN TS. POCT-GLUCOSE [id number] 23:32:00 Test Item Value Reference Range Interpretation Comments POC-GLUCOSE METER 98 mg/dL 70-110 : TESTED A T [employer] [employer] [facility] (Modify) (test code = [facility] [employer] [facility], 1538) 11143: Paper Products Inspector/Techni theo ID = [id number] for PATEL TEJADA POCT-GLUCOSE [id number] 17:52:00 Test Item Value Reference Range Interpretation Comments POC-GLUCOSE METER 88 mg/dL 70-110 : TESTED A T [facility] 6720 (Modify) (test code = [facility], 1538) 47333: Paper Products Inspector/Techni theo ID = [id number] for DOBB INS, ZAK POCT-GLUCOSE [id number] 11:53:00 Test Item Value Reference Range Interpretation Comments POC-GLUCOSE METER 161 mg/dL 70-110 H : TESTED A T [facility] 6720 (BEAKER) (test code = [place], 1538) [address]: Paper Products Inspector/Techni theo ID = [id number] for DO BBINS, ZAK BRONCHIAL CULTURE + GRAM [id number] 10:38:00 Test Item Value Reference Range Interpretation Comments CULTURE (BEAKER) (test See comment code = 1095) GRAM STAIN RESULT 2+ White blood cells (BEAKER) (test code = seen 1123) GRAM STAIN RESULT No organisms seen (BEAKER) (test code = 695042) 1+ YeastRAD, CHEST, 1 VIEW, NON [id number] 08:59:00Reason for exam:- >endotracheal intubationShould this be [...] MDReport Verified Date/Time: 10/14/2019 08:59:12 Reading Location: [address] Transitional Reading Room [id number] 08:38:00 Test Item Value Reference Range Interpretation Comments MAGNESIUM (BEAKER) 2.0 mg/dL 1.6-2.6 Specimen slightly (test code = 627) hemolyzed COMPREHENSIVE METABOLIC [id number] 08:38:00 Test Item Value Reference Range Interpretation [...] PATIEN TS. CBC W/PLT COUNT & AUTO [id number] 08:23:00 Test Item Value Reference Range Interpretation [...] PERCENT (BEAKER) (test code = 2801) POCT-GLUCOSE [id number] 07:07:00 Test Item Value Reference Range Interpretation Comments POC-GLUCOSE METER 84 mg/dL 70-110 : TESTED A T [facility] (BEAKER) (test code = [place], 1538) 35[address]: Paper Products Inspector/Techni theo ID = [id number] for Will iams, Kamille BLOOD GAS, [id number] 04:38:00 Test Item Value Reference Range Interpretation [...] (test code = 1819) 36.0 % POCT-GLUCOSE [id number] 01:19:00 Test Item Value Reference Range Interpretation Comments POC-GLUCOSE METER 152 mg/dL 70-110 H : TESTED A T [facility] 6720 (BEAKER) (test code = [facility], 153) 87926: Paper Products Inspector/Techni theo ID = [id number] for Kamille Garcia BLOOD [id number] 19:01:00 Test Item Value Reference Range Interpretation Comments CULTURE (BEAKER) (test No growth in 5 days code = 1095) POCT-GLUCOSE [id number] 18:11:00 Test Item Value Reference Range Interpretation Comments POC-GLUCOSE METER 82 mg/dL 70-110 : TESTED A T [facility] 6720 (BEAKER) (test code = [facility], 153) 72578: Paper Products Inspector/Techni theo ID = [id number] for DOBB INS, ZAK POCT-GLUCOSE [id number] 12:34:00 Test Item Value Reference Range Interpretation Comments POC-GLUCOSE METER 87 mg/dL 70-110 : TESTED A T [facility] 6720 (BEAKER) (test code = [facility], 153) 43186: Paper Products Inspector/Techni theo ID = [id number] for SAND ERS, GIDEON CBC W/PLT COUNT & AUTO [id number] 09:13:00 Test Item Value Reference Range Interpretation [...] 0-1 PERCENT (BEAKER) (test code = 2801) [id number] 06:55:00 Test Item Value Reference Range Interpretation Comments MAGNESIUM (BEAKER) (test code = 1.8 mg/dL 1.6-2.6 627) COMPREHENSIVE METABOLIC [id number] 06:55:00 Test Item Value Reference Range Interpretation [...] APPLICABLE FOR DIALYSIS PATIEN TS. BLOOD GAS, [id number] 06:41:00 Test Item Value Reference Range Interpretation [...] 28.0 % RAD, CHEST, 1 VIEW, NON [id number] 04:40:00Reason for exam:->endotracheal intubationShould this be performed [...] changes of the left clavicle.. Signed: Carolynn [facility] Verified Date/Time: 10/13/2019 04:40:52 POCT-GLUCOSE METER 2019-10-13 00:24:00 Test Item Value Reference Range Interpretation Comments POC-GLUCOSE METER 107 mg/dL 70-110 : TESTED [facility] T [facility] (test code = [facility], 1538) 64114: Paper Products Inspector/Techni theo ID = [id number] for Dianna Wetzel RAD, MANDIBLE, MIN 4 [id number] 17:22:00Reason for exam:->Liver Transplant EvaluationShould this be [...] Villarreal Verified Date/Time: 10/12/2019 17:22:01 Reading Location: [facility] Reading Room POCT-GLUCOSE [id number] 12:42:00 Test Item Value Reference Range Interpretation Comments POC-GLUCOSE METER 119 mg/dL 70-110 H : TESTED A T [facility] (BEAKER) (test code = [place], 1538) 920[address]: Paper Products Inspector/Techni theo ID = [id number] for Tyler Sanchez RAD, CHEST, 1 VIEW, NON [id number] 09:14:00Reason for exam:->endotracheal intubationShould this be performed [...] Verified Date/Time: 10/12/2019 09:14:48 Reading Location: [facility] Radiology Reading Room MAGNESIUM 2019-10-12 04:39:00 Test Item Value Reference Range Interpretation Comments MAGNESIUM (BEAKER) (test code = 1.8 mg/dL 1.6-2.6 627) COMPREHENSIVE METABOLIC [id number] 04:39:00 Test Item Value Reference Range Interpretation [...] PATIEN TS. CBC W/PLT COUNT & AUTO [id number] 04:18:00 Test Item Value Reference Range Interpretation [...] (BEAKER) (test code = 2801) BLOOD GAS, [id number] 04:17:00 Test Item Value Reference Range Interpretation [...] (test code = 1819) 30.0 % SPIN/CONCENTRATION [id number] 01:15:00 Test Item Value Reference Range Interpretation Comments CONCENTRATION CHARGED (BEAKER) (test Done code = 2657) BODY FLUID CELL COUNT WITH [id number] 18:00:00 Test Item Value Reference Range Interpretation [...] (test code = 2873) EEG AWAKE AND [id number] 17:00:00Reason for exam:->acute encephalopathyShould this be performed at the bedside?->YesDate(s) of EE10/11/2019 DATE OF REPORT: 10/11/2019ACC: [id number] Number: [id number] Location: Inpatient ICUStart time: 10/11/2019 16:09Stop time: 10/11/2019 16:31ICD-10: R41.82 CPT Code: 65507 HISTORY: 54 y.o. female with hypertension, chronic [...] of this report.Jermaine Walton MD, PhDAttending NeurophysiologistCHI [place], [place] SPUTUM CULTURE + GRAM [id number] 15:43:00 Test Item Value Reference Range Interpretation Comments CULTURE (BEAKER) 4+ Normal respiratory (test code = 1095) candy present GRAM STAIN RESULT 2+ White blood cells (BEAKER) (test code = seen 1123) GRAM STAIN RESULT 0-5 epithelial cells (BEAKER) (test code = 16868) GRAM STAIN RESULT 1+ gram positive rods (BEAKER) (test code = 17696) GRAM STAIN RESULT <1+ yeast (BEAKER) (test code = 673103) MISCELLANEOUS LAB [id number] 08:34:00 Test Item Value Reference Range Interpretation Comments SCAN RESULT (test code = 8573222) RAD, CHEST, 1 VIEW, NON [id number] 07:51:00Reason for exam:->endotracheal intubationShould this be performed [...] Verified Date/Time: 10/11/2019 07:51:10 Reading Location: [facility] Radiology Reading Room BLOOD [id number] 07:00:00 Test Item Value Reference Range Interpretation Comments CULTURE (BEAKER) (test No growth in 5 days code = 1095) BLOOD [id number] 07:00:00 Test Item Value Reference Range Interpretation Comments CULTURE (BEAKER) (test No growth in 5 days code = 1095) POCT-GLUCOSE [id number] 05:51:00 Test Item Value Reference Range Interpretation Comments POC-GLUCOSE METER 103 mg/dL 70-110 : TESTED A T [facility] (BEAKER) (test code = [place], 1538) 47[address]: Paper Products Inspector/Techni theo ID = [id number] for SHARI BAJWA BLOOD GAS, [id number] 04:55:00 Test Item Value Reference Range Interpretation [...] (BEAKER) (test code = 1819) 40.0 % [id number] 04:46:00 Test Item Value Reference Range Interpretation Comments MAGNESIUM (BEAKER) (test code = 2.2 mg/dL 1.6-2.6 627) COMPREHENSIVE METABOLIC [id number] 04:46:00 Test Item Value Reference Range Interpretation [...] PATIEN TS. CBC W/PLT COUNT & AUTO [id number] 04:11:00 Test Item Value Reference Range Interpretation [...] PERCENT (BEAKER) (test code = 2801) POCT-GLUCOSE [id number] 23:55:00 Test Item Value Reference Range Interpretation Comments POC-GLUCOSE METER 118 mg/dL 70-110 H : TESTED A T [facility] (BEAKER) (test code = [place], 1538) 84088: Paper Products Inspector/Techni theo ID = [id number] for SHARI BAJWA POCT-GLUCOSE [id number] 17:40:00 Test Item Value Reference Range Interpretation Comments POC-GLUCOSE METER 142 mg/dL 70-110 H : TESTED A T [facility] 6720 (JASON) (test code = [facility], 1538) 80798: Paper Products Inspector/Techni theo ID = [id number] for Karely Bautista POCT-GLUCOSE [id number] 12:30:00 Test Item Value Reference Range Interpretation Comments POC-GLUCOSE METER 114 mg/dL 70-110 H : TESTED A T [facility] 6720 (BEDIAN) (test code = [facility], 1538) 07236: Paper Products Inspector/Techni theo ID = [id number] for Karely Bautista HIV-1 PCR, [id number] 11:07:00 Test Item Value Reference Range Interpretation Comments HIV-1 RESULT HIV RNA not detected HIV RNA not detected COMPONENT (JASON) (test code = 2703) This test uses a Real-Time Polymerase Chain Reaction (RT-PCR) methodology to detect a highly conserved region of the HIV-1 gag gene and was performed using the CHRISTINA AmpliPrep/CHRISTINA TaqMan HIV-1 test kit version 2.0 ([employer]Reportable range for this assay is 20 - 10,000,000 copies per mL (1.3 - 7.0 Log copies/mL).[id number] 08:14:00 Test Item Value Reference Range Interpretation Comments T3 TOTAL (JASON) (test code = 656) 36 ng/dL 48-159 L RAD, CHEST, 1 VIEW, NON [id number] 07:15:00Reason for exam:->endotracheal intubationShould this be performed [...] MDReport Verified Date/Time: 10/10/2019 07:15:28 Reading Location: [facility] Reading Room POCT- GLUCOSE [id number] 06:26:00 Test Item Value Reference Range Interpretation Comments POC-GLUCOSE METER 103 mg/dL 70-110 : TESTED A T [facility] (BEAKER) (test code = [place], 1538) 74[address]: Paper Products Inspector/Techni theo ID = [id number] for SUSIE TRUONG [id number] 05:32:00 Test Item Value Reference Range Interpretation [...] within 95-100% range.CBC W/PLT COUNT & AUTO [id number] 05:23:00 Test Item Value Reference Range Interpretation [...] 0-1 PERCENT (BEAKER) (test code = 2801) [id number] 05:10:00 Test Item Value Reference Range Interpretation [...] INR is2.5-3.5 for patients wiht mechanical heart valves.[id number] 05:10:00 Test Item Value Reference Range Interpretation Comments PHOSPHORUS (BEAKER) (test code = 3.3 mg/dL 2.3-4.7 604) [id number] 05:10:00 Test Item Value Reference Range Interpretation Comments MAGNESIUM (BEAKER) (test code = 2.3 mg/dL 1.6-2.6 627) COMPREHENSIVE METABOLIC [id number] 05:10:00 Test Item Value Reference Range Interpretation [...] S NOT APPLICABLE FOR DIALYSIS PATIEN TS. [id number] 05:08:00 Test Item Value Reference Range Interpretation Comments FIBRINOGEN LEVEL (BEAKER) (test 275 mg/dl 225-434 code = 658) PROTHROMBIN [id number] 05:07:00 Test Item Value Reference Range Interpretation [...] is2.5-3.5 for patients wiht mechanical heart valves.CALCIUM, [id number] 04:59:00 Test Item Value Reference Range Interpretation Comments CALCIUM IONIZED (BEAKER) (test 1.20 mmol/L 1.12-1.27 code = 698) PH, BLOOD (BEAKER) (test code = 7.37 1810) BLOOD GAS, [id number] 04:55:00 Test Item Value Reference Range Interpretation [...] (test code = 1819) 40.0 % POCT-GLUCOSE [id number] 00:46:00 Test Item Value Reference Range Interpretation Comments POC-GLUCOSE METER 90 mg/dL 70-110 : TESTED A T [facility] (BEAKER) (test code = [place], 1538) 82026: Paper Products Inspector/Techni theo ID = [id number] for MATH NANCY, SUSIE MRSA [id number] 19:33:00 Test Item Value Reference Range Interpretation Comments CULTURE (BEAKER) (test code No MRSA isolated = 1095) PROTHROMBIN [id number] 18:00:00 Test Item Value Reference Range Interpretation [...] INR is2.5-3.5 for patients wiht mechanical heart valves.PT/[id number] 18:00:00 Test Item Value Reference Range Interpretation [...] INR is2.5-3.5 for patients wiht mechanical heart valves.[id number] 17:55:00 Test Item Value Reference Range Interpretation Comments MAGNESIUM (BEAKER) (test code = 1.9 mg/dL 1.6-2.6 627) BASIC METABOLIC [id number] 17:55:00 Test Item Value Reference Range Interpretation [...] APPLICABLE FOR DIALYSIS PATIEN TS. CYTOMEGALOVIRUS ANTIBODY, [id number] 16:41:00 Test Item Value Reference Range Interpretation Comments CYTOMEGALOVIRUS, IGG (BEAKER) Negative Negative, Equivocal (test code = 3429) CMV IgG Result Interpretation: </= 0.8 Al Negative 0.9-1.0 Al Equivocal >/=1.1 Al PositiveCYTOMEGALOVIRUS ANTIBODY, [id number] 16:41:00 Test Item Value Reference Range Interpretation Comments CYTOMEGALOVIRUS IGM ANTIBODY Negative Negative, Equivocal (BEAKER) (test code = 3437) CMV IgM Result Interpretation: </= 0.8 Al Negative 0.9-1.0 Al Equivocal >/= 1.1 Al PositiveEBV ANTIBODY, [id number] 16:41:00 Test Item Value Reference Range Interpretation [...] 107 mg/dL 70-110 : TESTED A T [facility] (BEAKER) (test code = [place], 1538) 89471: Paper Products Inspector/Techni theo ID = [id number] for Karely Bautista CT, BRAIN, WITHOUT [id number] 14:07:00Patient with decerebrate posturing, r/o herniationFINAL REPORT [...] Date/Time: 10/09/2019 14:07:57 SPUTUM CULTURE + GRAM [id number] 12:59:00 Test Item Value Reference Range Interpretation Comments CULTURE (BEAKER) See comment (test code = 1095) GRAM STAIN RESULT 1+ White blood cells (BEAKER) (test code = seen 1123) GRAM STAIN RESULT 0-5 epithelial cells (BEAKER) (test code = 038252) GRAM STAIN RESULT No organisms seen (BEAKER) (test code = 139467) 2+ YeastNo Normal respiratory candy presentPOCT-GLUCOSE [id number] 12:22:00 Test Item Value Reference Range Interpretation Comments POC-GLUCOSE METER 168 mg/dL 70-110 H : TESTED A T [facility] 6720 (BEAKER) (test code = [facility] [place], 1538) 70[address]: Paper Products Inspector/Techni theo ID = [id number] for Karely Bautista POCT-GLUCOSE [id number] 10:04:00 Test Item Value Reference Range Interpretation Comments POC-GLUCOSE METER 101 mg/dL 70-110 : TESTED A T [facility] 6720 (BEAKER) (test code = [facility], 1538) 64431: Paper Products Inspector/Techni theo ID = [id number] for Karely Bautista BILIRUBIN, [id number] 09:44:00 Test Item Value Reference Range Interpretation Comments BILIRUBIN DIRECT (BEAKER) (test 1.5 mg/dL 0.1-0.5 H code = 706) [id number] 07:19:00 Test Item Value Reference Range Interpretation Comments PROCALCITONIN (BEAKER) (test code 1.48 ng/mL <0.05 H = 3036) SEPSIS RISK (ng/mL)Low: 0.05-0.50Intermediate: 0.51-2.00High: >=2.33K-[id number] 05:26:00 Test Item Value Reference Range Interpretation [...] within 95-100% range.RAD, CHEST, 1 VIEW, NON [id number] 05:16:00Reason for exam:->endotracheal intubationShould this be performed [...] Cummins MDReport Verified Date/Time: 10/09/2019 05:16:08 CALCIUM, [id number] 05:05:00 Test Item Value Reference Range Interpretation Comments CALCIUM IONIZED (BEAKER) (test 1.14 mmol/L 1.12-1.27 code = 698) PH, BLOOD (BEAKER) (test code = 7.49 1810) BLOOD GAS, [id number] 05:04:00 Test Item Value Reference Range Interpretation [...] 40.0 % CBC W/PLT COUNT & AUTO [id number] 04:51:00 Test Item Value Reference Range Interpretation [...] (BEAKER) (test code = 2801) VANCOMYCIN LEVEL, [id number] 04:26:00 Test Item Value Reference Range Interpretation Comments VANCOMYCIN TROUGH (BEAKER) (test 7.0 ug/mL 10.0-20.0 L code = 522) [id number] 04:21:00 Test Item Value Reference Range Interpretation Comments PHOSPHORUS (BEAKER) (test code = 3.2 mg/dL 2.3-4.7 604) [id number] 04:21:00 Test Item Value Reference Range Interpretation Comments MAGNESIUM (BEAKER) (test code = 1.9 mg/dL 1.6-2.6 627) COMPREHENSIVE METABOLIC [id number] 04:21:00 Test Item Value Reference Range Interpretation [...] S NOT APPLICABLE FOR DIALYSIS PATIEN TS. [id number] 04:19:00 Test Item Value Reference Range Interpretation Comments FIBRINOGEN LEVEL (BEAKER) (test 267 mg/dl 225-434 code = 658) [id number] 04:14:00 Test Item Value Reference Range Interpretation [...] is2.5-3.5 for patients wiht mechanical heart valves.PROTHROMBIN TIME/[id number] 04:13:00 Test Item Value Reference Range Interpretation [...] is2.5-3.5 for patients wiht mechanical heart valves.POCT-GLUCOSE [id number] 01:04:00 Test Item Value Reference Range Interpretation Comments POC-GLUCOSE METER 143 mg/dL 70-110 H : TESTED A T [facility] 6720 (BEAKER) (test code = [employer] [employer] [facility], 1538) 55165: Paper Products Inspector/Techni theo ID = [id number] for BONY BRISCOE, SUSIE POCT-GLUCOSE [id number] 20:20:00 Test Item Value Reference Range Interpretation Comments POC-GLUCOSE METER 145 mg/dL 70-110 H : TESTED A T [facility] 6720 (BEAKER) (test code = [facility] [employer] [facility], 1538) 90412: Paper Products Inspector/Techni theo ID = [id number] for BONY DASW, SUSIE POCT-GLUCOSE [id number] 16:43:00 Test Item Value Reference Range Interpretation Comments POC-GLUCOSE METER 164 mg/dL 70-110 H : TESTED A T [facility] (SHANNONAKER) (test code = [place], 1538) 13063: Paper Products Inspector/Techni theo ID = [id number] for Karely Bautista CMV PCR, [id number] 15:47:00 Test Item Value Reference Range Interpretation [...] and its performance characteristics determined by the [facility] Path ology Department, Section of Molecular Pathology. It has not been cleared or approved by the U.S. Food and Drug Administration (FDA), since FDA approval is not required for clinical use of the test. Validation was done as required by The Clinical Laboratory Improvement Amendments of 1988.[id number] 15:29:00 Test Item Value Reference Range Interpretation Comments PHOSPHORUS (BEAKER) (test code = 3.5 mg/dL 2.3-4.7 604) [id number] 15:29:00 Test Item Value Reference Range Interpretation Comments MAGNESIUM (BEAKER) (test code = 2.1 mg/dL 1.6-2.6 627) [id number] 15:01:00 Test Item Value Reference Range Interpretation Comments PHOSPHORUS (BEAKER) (test code = 2.1 mg/dL 2.3-4.7 L 604) [id number] 15:01:00 Test Item Value Reference Range Interpretation Comments MAGNESIUM (BEAKER) (test code = 2.0 mg/dL 1.6-2.6 627) BASIC METABOLIC [id number] 15:01:00 Test Item Value Reference Range Interpretation [...] APPLICABLE FOR DIALYSIS PATIEN TS. Specimen slightly ictericPT/[id number] 14:53:00 Test Item Value Reference Range Interpretation [...] INR is2.5-3.5 for patients wiht mechanical heart valves.[id number] 14:38:00 Test Item Value Reference Range Interpretation Comments AMMONIA (BEAKER) (test code = 348) 34 mol/L 18-72 RUBELLA ANTIBODY, [id number] 14:20:00 Test Item Value Reference Range Interpretation Comments RUBELLA IGG QUANTITATION (BEAKER) 1.0 IU/mL <8.0 (test code = 572) Rubella IgG Result Interpretation: </= 7.0 IU/mL Negative - Presumed non- immune 8.0 - 9.9 IU/mL Equivocal >= 10.0 IU/mL Positive - Presumed immune VARICELLA ZOSTER ANTIBODY, [id number] 13:49:00 Test Item Value Reference Range Interpretation Comments VARICELLA ZOSTER IGG (AL) (BEAKER) 4.8 (test code = 3197) VARICELLA ZOSTER RESULT INTERPRETATIONS: <=0.8 Al Nonreactive: Presumed non-immune to VZV 0.9-1.0 Al Equivocal >=1.1 Al Reactive: Presumed immune to VZVCRYPTOCOCCAL [id number] 13:33:00 Test Item Value Reference Range Interpretation Comments CRYPTOCOCCAL ANTIGEN, SERUM Negative Negative, Interference (BEAKER) (test code = 1828) FACTOR 5 ACTIVITY (BLEEDING RISK)2019-10-08 13:03:00 Test Item Value Reference Range Interpretation Comments FACTOR V ACTIVITY (BEAKER) (test code = 9.0 % 60.0-150.0 L 665) CBC W/PLT COUNT & AUTO [id number] 12:13:00 Test Item Value Reference Range Interpretation [...] PERCENT (BEAKER) (test code = 2801) POCT-GLUCOSE [id number] 11:22:00 Test Item Value Reference Range Interpretation Comments POC-GLUCOSE METER 184 mg/dL 70-110 H : TESTED A T [facility] (BEAKER) (test code = [place], 1538) 48523: Paper Products Inspector/Techni theo ID = [id number] for Karely Bautista ANTI-NUCLEAR ANTIBODY (JOSE ARMANDO)2019-10-08 10:44:00 Test Item Value Reference Range Interpretation Comments ANTI-NUCLEAR ANTIBODY (JOSE ARMANDO) (BEAKER) Negative Negative (test code = 418) Test performed by IFA method.Test performed by IFA method.[id number] 09:26:00 Test Item Value Reference Range Interpretation Comments PHOSPHORUS (BEAKER) (test code = 2.9 mg/dL 2.3-4.7 604) [id number] 09:26:00 Test Item Value Reference Range Interpretation Comments MAGNESIUM (BEAKER) (test code = 2.0 mg/dL 1.6-2.6 627) BASIC METABOLIC [id number] 09:26:00 Test Item Value Reference Range Interpretation [...] Specimen slightly ictericRAD, CHEST, 1 VIEW, NON [id number] 09:14:00Reason for exam:->endotracheal intubationShould this be performed at the bedside?->YesFINAL REPORT RAD, CHEST, 1 VIEW, NON DEPT INDICATION: endotracheal intubationCOMPARISON: Prior day's exam FINDINGS: Portable frontal view of the chest. IMPRESSION: Support Lines: Stable. Lungs and pleura: Improved interstitial congestion. No consolidation or effusion. No pneumothorax.Heart and mediastinum: Stable contours. Additional findings: None. Signed: JR Gramajo Robert MDReport Verified Date/Time: 10/08/2019 09:14:39 Reading Location: [facility] Radiology Reading Room D-DIMER 2019-10-08 06:25:00 [...] of thrombosis is within 95-100% range. PROTHROMBIN TIME/[id number] 05:32:00 Test Item Value Reference Range Interpretation [...] INR is2.5-3.5 for patients wiht mechanical heart valves.[id number] 05:32:00 Test Item Value Reference Range Interpretation Comments FIBRINOGEN LEVEL (BEAKER) (test 200 mg/dl 225-434 L code = 658) [id number] 05:32:00 Test Item Value Reference Range Interpretation [...] Specimen slightly ictericCBC W/PLT COUNT & AUTO [id number] 05:24:00 Test Item Value Reference Range Interpretation [...] (BEAKER) (test code = 2801) LACTIC ACID, [id number] 05:16:00 Test Item Value Reference Range Interpretation Comments LACTATE BLOOD VENOUS (2) (BEAKER) 1.8 mmol/L 0.5-2.2 (test code = 2872) [id number] 23:51:00 Test Item Value Reference Range Interpretation Comments PHOSPHORUS (BEAKER) (test code = 4.4 mg/dL 2.3-4.7 604) [id number] 23:51:00 Test Item Value Reference Range Interpretation Comments MAGNESIUM (BEAKER) (test code = 2.2 mg/dL 1.6-2.6 627) BASIC METABOLIC [id number] 23:51:00 Test Item Value Reference Range Interpretation [...] DIALYSIS PATIEN TS. Specimen slightly ictericBLOOD GAS, [id number] 23:37:00 Test Item Value Reference Range Interpretation [...] 50.0 % CBC W/PLT COUNT & AUTO [id number] 20:12:00 Test Item Value Reference Range Interpretation [...] PERCENT (BEAKER) (test code = 2801) POCT-GLUCOSE [id number] 20:01:00 Test Item Value Reference Range Interpretation Comments POC-GLUCOSE METER 143 mg/dL 70-110 H : TESTED A T [facility] 6720 (BEAKER) (test code = [employer] [facility], 1538) [address]: Paper Products Inspector/Techni theo ID = [id number] for Liban Arnett BLOOD GAS, [id number] 19:54:00 Test Item Value Reference Range Interpretation [...] (test code = 1819) 24.0 % POCT-GLUCOSE [id number] 19:01:00 Test Item Value Reference Range Interpretation Comments POC-GLUCOSE METER 155 mg/dL 70-110 H : TESTED A T [facility] 6720 (BEAKER) (test code = [employer] [place], 1538) [address]: Paper Products Inspector/Techni theo ID = [id number] for GIDEON NUNEZ HEPATOBILIARY [id number] 18:38:00Please do at bedside. Thank you.FINAL REPORT PROCEDURE: HEPATOBILIARY SCAN CPT CODE: 02781 INDICATION: abdominal pain PROTOCOL: 5.3 mCi of [...] JEFFERY ALARCON MD on 10/07/2019 06:38 PMPOCT-GLUCOSE [id number] 16:52:00 Test Item Value Reference Range Interpretation Comments POC-GLUCOSE METER 166 mg/dL 70-110 H : TESTED A T [facility] 6720 (BEAKER) (test code = [employer] [facility], 1538) [id number]: Paper Products Inspector/Techni theo ID = [id number] for GIDEON NUNEZ [id number] 16:40:00 Test Item Value Reference Range Interpretation [...] INR is2.5-3.5 for patients wiht mechanical heart valves.[id number] 16:40:00 Test Item Value Reference Range Interpretation Comments FIBRINOGEN LEVEL (BEAKER) (test 156 mg/dl 225-434 L code = 658) PROTHROMBIN TIME/[id number] 16:39:00 Test Item Value Reference Range Interpretation [...] INR is2.5-3.5 for patients wiht mechanical heart valves.[id number] 16:36:00 Test Item Value Reference Range Interpretation Comments PHOSPHORUS (BEAKER) (test code = 1.8 mg/dL 2.3-4.7 L 604) [id number] 16:36:00 Test Item Value Reference Range Interpretation Comments MAGNESIUM (BEAKER) (test code = 2.5 mg/dL 1.6-2.6 627) BASIC METABOLIC [id number] 16:36:00 Test Item Value Reference Range Interpretation [...] APPLICABLE FOR DIALYSIS PATIEN TS. BLOOD GAS, [id number] 16:22:00 Test Item Value Reference Range Interpretation [...] 25.0 % CBC W/PLT COUNT & AUTO [id number] 12:44:00 Test Item Value Reference Range Interpretation [...] PERCENT (BEAKER) (test code = 2801) POCT-GLUCOSE [id number] 12:23:00 Test Item Value Reference Range Interpretation Comments POC-GLUCOSE METER 145 mg/dL 70-110 H : TESTED A T [facility] 6720 (BEAKER) (test code = [place], 1538) [address]: Paper Products Inspector/Techni theo ID = [id number] for GIDEON NUNEZ [id number] 12:06:00 Test Item Value Reference Range Interpretation Comments T4 TOTAL (BEAKER) (test code = 895) 4.6 ug/dL 4.9-11.7 L [id number] 10:00:00 Test Item Value Reference Range Interpretation Comments PHOSPHORUS (BEAKER) (test code = 2.8 mg/dL 2.3-4.7 604) [id number] 10:00:00 Test Item Value Reference Range Interpretation Comments MAGNESIUM (BEAKER) (test code = 2.0 mg/dL 1.6-2.6 627) BASIC METABOLIC [id number] 10:00:00 Test Item Value Reference Range Interpretation [...] NOT APPLICABLE FOR DIALYSIS PATIEN TS. POCT-GLUCOSE [id number] 08:15:00 Test Item Value Reference Range Interpretation Comments POC-GLUCOSE METER 174 mg/dL 70-110 H : TESTED A T [facility] 6720 (BEAKER) (test code = [place], 1538) [address]: Paper Products Inspector/Techni theo ID = [id number] for SA NDERS, GIDEON RAD, CHEST, 1 VIEW, NON [id number] 05:39:00Reason for exam:- >intubatedShould this be performed [...] MDReport Verified Date/Time: 10/07/2019 05:39:22 BLOOD GAS, [id number] 05:29:00 Test Item Value Reference Range Interpretation [...] (BEAKER) (test code = 1819) 40.0 % [id number] 05:07:00 Test Item Value Reference Range Interpretation [...] thrombosis is within 95-100% range. COMPREHENSIVE METABOLIC [id number] 04:59:00 Test Item Value Reference Range Interpretation [...] PATIEN TS. CBC W/PLT COUNT & AUTO [id number] 04:32:00 Test Item Value Reference Range Interpretation [...] H PERCENT (BEAKER) (test code = 2801) [id number] 04:30:00 Test Item Value Reference Range Interpretation Comments PHOSPHORUS (BEAKER) (test code = 3.1 mg/dL 2.3-4.7 604) [id number] 04:30:00 Test Item Value Reference Range Interpretation Comments MAGNESIUM (BEAKER) (test code = 1.8 mg/dL 1.6-2.6 627) POCT-GLUCOSE [id number] 04:25:00 Test Item Value Reference Range Interpretation Comments POC-GLUCOSE METER 126 mg/dL 70-110 H : TESTED A T [facility] 67[facility] (BEAKER) (test code = [place], 1538) [address]: Paper Products Inspector/Techni theo ID = [id number] for Liban Arnett [id number] 04:18:00 Test Item Value Reference Range Interpretation Comments FIBRINOGEN LEVEL (BEAKER) (test 173 mg/dl 225-434 L code = 658) [id number] 04:14:00 Test Item Value Reference Range Interpretation [...] for patients wiht mechanical heart valves.LACTIC ACID, [id number] 04:13:00 Test Item Value Reference Range Interpretation Comments LACTATE BLOOD VENOUS (2) (BEAKER) 1.2 mmol/L 0.5-2.2 (test code = 2872) POCT-GLUCOSE [id number] 01:33:00 Test Item Value Reference Range Interpretation Comments POC-GLUCOSE METER 103 mg/dL 70-110 : TESTED A T [facility] 6720 (BEAKER) (test code = [facility], 1538) [address]: Paper Products Inspector/Techni theo ID = [id number] for GISELE CUETO HEMOGLOBIN AND [id number] 00:27:00 Test Item Value Reference Range Interpretation Comments HEMOGLOBIN (BEAKER) (test code = 8.6 GM/DL 11.2-15.7 L 410) HEMATOCRIT (BEAKER) (test code = 26.2 % 34.1-44.9 L 411) POCT-GLUCOSE [id number] 22:58:00 Test Item Value Reference Range Interpretation Comments POC-GLUCOSE METER 146 mg/dL 70-110 H : TESTED A T [facility] 6720 (BEAKER) (test code = [employer] [facility], 1538) [address]: Paper Products Inspector/Techni theo ID = [id number] for GISELE CUETO RAD, CHEST, 1 VIEW, NON [id number] 21:37:00Reason for exam:->line placement, right IJShould this [...] APPLICABLE FOR DIALYSIS PATIEN TS. PROTEIN, RANDOM [id number] 19:50:00 Test Item Value Reference Range Interpretation Comments PROTEIN, URINE (BEAKER) (test code = 83 mg/dL 0-14 H 1569) CREATININE, RANDOM [id number] 19:28:00 Test Item Value Reference Range Interpretation Comments CREATININE URINE (BEAKER) (test 37.6 mg/dL code = 375) Reference Range: No [id number] 19:00:00 Test Item Value Reference Range Interpretation Comments MAGNESIUM (BEAKER) 2.0 mg/dL 1.6-2.6 Specimen slightly (test code = 627) hemolyzed [id number] 19:00:00 Test Item Value Reference Range Interpretation [...] 0-0 (test code = 413) LACTIC ACID, [id number] 18:55:00 Test Item Value Reference Range Interpretation Comments LACTATE BLOOD VENOUS 1.9 mmol/L 0.5-2.2 Specime n slightly (2) (BEAKER) (test hemolyzed code = 2872) VITAMIN B12 AND [id number] 18:36:00 Test Item Value Reference Range Interpretation Comments VITAMIN B12 (BEAKER) (test code = > pg/mL 213-816 H 774) FOLATE (BEAKER) (test code = 362) 17.3 ng/mL >=7.0 BLOOD GAS, [id number] 18:29:00 Test Item Value Reference Range Interpretation [...] code = 1819) 40.0 % BASIC METABOLIC [id number] 17:47:00 Test Item Value Reference Range Interpretation [...] NOT APPLICABLE FOR DIALYSIS PATIEN TS. POCT-GLUCOSE [id number] 17:39:00 Test Item Value Reference Range Interpretation Comments POC-GLUCOSE METER 188 mg/dL 70-110 H : TESTED A T [facility] 6720 (BEAKER) (test code = [place], 1538) [address]: Paper Products Inspector/Techni theo ID = [id number] for SA GIDEON LOPEZ LIPID [id number] 17:28:00 Test Item Value Reference Range Interpretation [...] Borderline 130-159 High 160-189 Very High >=190URIC [id number] 17:28:00 Test Item Value Reference Range Interpretation Comments URIC ACID (BEAKER) (test code = 7.3 mg/dL 2.6-7.2 H 773) HEMOGLOBIN [id number] 16:13:00 Test Item Value Reference Range Interpretation Comments HEMOGLOBIN A1C (BEAKER) (test code = 6.0 % 4.3-6.1 368) HEPATITIS A ANTIBODY, [id number] 16:13:00 Test Item Value Reference Range Interpretation Comments HEPATITIS A IGG ANTIBODY (BEAKER) Reactive Nonreactive A (test code = 2797) CARCINOEMBRYONIC ANTIGEN (CEA)2019-10-06 16:08:00 Test Item Value Reference Range Interpretation Comments CARCINOEMBRYONIC ANTIGEN (BEAKER) 23.1 ng/mL 0.0-5.0 H (test code = 685) VITAMIN D, [id number] 16:08:00 Test Item Value Reference Range Interpretation Comments VITAMIN D 25-OH (BEAKER) (test 10.1 ng/mL 6.6-49.9 code = 2764) Effective 09/07/2017: Reference Range ChangeNew: 6.6-49.9 ng/mL Previous: 13.0-47.8 ng/mLRecommended Vitamin D Target Range: 30.0-40.0 ng/mLTRANSFERRIN 2019-10-06 15:52:00 Test Item Value Reference Range Interpretation Comments TRANSFERRIN (BEAKER) (test code = 218 mg/dL 174-382 541) [id number] 15:09:00 Test Item Value Reference Range Interpretation Comments PHOSPHORUS EMILEE) (test code = 1.7 mg/dL 2.3-4.7 L 604) U/S, ABDOMINAL, WITH [id number] 15:01:00Reason for exam:->acute liver injury, ? cholecystitis, [...] MDReport Verified Date/Time: 10/06/2019 15:01:21 Reading Location: [facility] B1 C013X Ortho Consult Reading Room PREGNANCY SCREEN, [id number] 14:58:00 Test Item Value Reference Range Interpretation Comments TEST URINE (BEAKER) (test Negative code = 583) POCT-GLUCOSE [id number] 12:44:00 Test Item Value Reference Range Interpretation Comments POC-GLUCOSE METER 156 mg/dL 70-110 H : TESTED A T [facility] 6720 (BEAKER) (test code = [place], 1538) [address]: Paper Products Inspector/Techni theo ID = [id number] for BRIA NUNEZOE [id number] 12:39:00 Test Item Value Reference Range Interpretation Comments RPR SCREEN (BEAKER) (test code = Nonreactive Nonreactive 420) B-TYPE NATRIURETIC FACTOR (BNP)2019-10-06 11:57:00 Test Item Value Reference Range Interpretation Comments B-TYPE NATRIURETIC PEPTIDE 3996 pg/mL 0-100 H (BEAKER) (test code = 700) [id number] 11:51:00 Test Item Value Reference Range Interpretation Comments MAGNESIUM (BEAKER) (test code = 2.2 mg/dL 1.6-2.6 627) BLOOD GAS, [id number] 11:50:00 Test Item Value Reference Range Interpretation [...] code = 1819) 50.0 % RESPIRATORY PANEL [id number] 11:35:00 Test Item Value Reference Range Interpretation [...] decisions. This sample was tested at the [facility] using the [employer] FilmArray Respiratory Panel. It is FDA cleared and has been verified and approved by the [facility] for clinical use on nasopharyngeal swab specimens.The performance of the FilmArrayRP has not been established in individuals who received influenza vaccine. Recent administration ofa nasal influenza vaccine may cause false positive results for Influenza A and/orInfluenza B.RETICULOCYTE [id number] 11:32:00 Test Item Value Reference Range Interpretation Comments RETICULOCYTE COUNT PCT (GenticelAKER) (test 2.1 % 0.5-1.7 H code = 575) KETONE, [id number] 11:30:00 Test Item Value Reference Range Interpretation Comments KETONES, BLOOD (BEAKER) (test code 0.3 mmol/L <0.4 = 1103) LEGIONELLA ANTIGEN, [id number] 09:37:00 Test Item Value Reference Range Interpretation Comments L. PNEUMOPHILA Negative - see Negative fo r L. SEROGP 1 UR AG comment pneumophila (BEAKER) (test code serogrou p 1 antigen, = 1156) suggesting no r ecent or current infe ction with this serog roup. Legionellosis c annot be ruled out si nce other serogroup s and species may cau se disease. STREP PNEUMONIAE [id number] 09:37:00 Test Item Value Reference Range Interpretation Comments STREP PNEUMONIAE Presumptive negative Presumptive negative ANTIGEN (GenticelAKER) for pneumococcal for pneumococcal (test code = 1615) pneumonia - see pneumonia - see comment commen Presumptive negative for pneumococcal pneumonia, suggesting no current or recent pneumococcal infection. Infection due to S. pneumoniae cannot be ruled out since the antigen present in the sample may be below the detection limit of the test.POCT-GLUCOSE [id number] 08:45:00 Test Item Value Reference Range Interpretation Comments POC-GLUCOSE METER 119 mg/dL 70-110 H : TESTED A T [facility] 67[facility] ([employer]) (test code = [place], 1538) [address]: Paper Products Inspector/Techni theo ID = [id number] for SA NDERS, GIDEON RAD, CHEST, 1 VIEW, NON [id number] 08:37:00Post-intubationReason for exam:- >intubationShould this be performed [...] MDReport Verified Date/Time: 10/06/2019 08:37:13 Reading Location: [facility] C013X Ortho Consult Reading Room [id number] 07:44:00 Test Item Value Reference Range Interpretation Comments PROCALCITONIN (BEAKER) (test code 0.97 ng/mL <0.05 H = 3036) SEPSIS RISK (ng/mL)Low: 0.05-0.50Intermediate: 0.51-2.00High: >=2.01URINALYSIS W/ REFLEX URINE [id number] 07:15:00 Test Item Value Reference Range Interpretation [...] code = 2795) ALPHA FETOPROTEIN (AFP), TUMOR [id number] 06:49:00 Test Item Value Reference Range Interpretation Comments ALPHA-FETOPROTEIN (BEAKER) (test code < ng/mL <10.0 = 1094) For 1 occurencesHEPATITIS B SURFACE [id number] 06:49:00 Test Item Value Reference Range Interpretation Comments HEPATITIS B SURFACE ANTIBODY < mIU/mL <8.0 (BEAKER) (test code = 647) For 1 occurencesRAPID DRUG SCREEN, [id number] 06:33:00 Test Item Value Reference Range Interpretation [...] situations. Chain of custody not maintained. Some rdxt-viz-wqkaaip medications, as well as adulterants, may cause inaccurate results. Clinical correlation should be applied. A more comprehensivedrug screen or confirmation of a detected drug may be performed upon request.CREATININE, RANDOM URINE 2019-10-06 06:30:00 Test Item Value Reference Range Interpretation Comments CREATININE URINE (BEAKER) (test 38.0 mg/dL code = 375) Reference Range: No NormalsSODIUM, RANDOM [id number] 06:30:00 Test Item Value Reference Range Interpretation Comments SODIUM URINE (BEAKER) (test code = 51 meq/L 243) Reference Range: No NormalsHEPATITIS B CORE ANTIBODY, [id number] 06:27:00 Test Item Value Reference Range Interpretation Comments HEPATITIS B CORE TOTAL ANTIBODY Nonreactive Nonreactive (BEAKER) (test code = 497) For 1 [id number] 05:50:00 Test Item Value Reference Range Interpretation Comments FERRITIN (BEAKER) (test code = 1588 ng/mL 5-275 H 361) For 1 occurencesACETAMINOPHEN [id number] 05:30:00 Test Item Value Reference Range Interpretation Comments ACETAMINOPHEN LEVEL (BEAKER) (test < ug/mL 10.0-30.0 L code = 344) Therapeutic Range: 10.0-30.0 g/mLToxic Levels: >200.0 g/mLFor 1 sgwndratyuNCXFV-9-[id number] 05:20:00 Test Item Value Reference Range Interpretation Comments ALPHA-1 ANTITRYPSIN (BEAKER) 266.90 mg/dL 90.00-200.00 H (test code = 502) [id number] 05:17:00 Test Item Value Reference Range Interpretation Comments THYROID STIMULATING HORMONE 0.75 uIU/mL 0.35-4.94 (BEAKER) (test code = 772) HEPATITIS PANEL, [id number] 05:17:00 Test Item Value Reference Range Interpretation Comments HEPATITIS A IGM ANTIBODY (BEAKER) Nonreactive Nonreactive (test code = 498) HEPATITIS B CORE IGM ANTIBODY Nonreactive Nonreactive (BEAKER) (test code = 645) HEPATITIS C ANTIBODY (BEAKER) Nonreactive Nonreactive (test code = 367) HEPATITIS B SURFACE ANTIGEN (2) Nonreactive Nonreactive (BEAKER) (test code = 2585) HIV-1 ANTIGEN WITH HIV-1/2 [id number] 05:17:00 Test Item Value Reference Range Interpretation Comments HIV-1 ANTIGEN WITH HIV 1\T\2 Nonreactive Nonreactive ANTIBODY (2) (BEAKER) (test code = 2586) BASIC METABOLIC [id number] 05:09:00 Test Item Value Reference Range Interpretation [...] APPLICABLE FOR DIALYSIS PATIEN TS. HEPATIC FUNCTION [id number] 05:09:00 Test Item Value Reference Range Interpretation [...] code = > U/L 6-55 H 347) [id number] 05:07:00 Test Item Value Reference Range Interpretation Comments PHOSPHORUS (BEAKER) (test code = 3.6 mg/dL 2.3-4.7 604) [id number] 05:07:00 Test Item Value Reference Range Interpretation [...] H (test code = 364) LACTIC ACID, [id number] 04:58:00 Test Item Value Reference Range Interpretation Comments LACTATE BLOOD ARTERIAL (2) 1.5 mmol/L 0.5-2.2 (BEAKER) (test code = 2874) [id number] 04:56:00 Test Item Value Reference Range Interpretation Comments ETHANOL (BEAKER) (test code = 400) < mg/dL <=10 [id number] 04:54:00 Test Item Value Reference Range Interpretation [...] L (test code = 2590) BLOOD GAS, [id number] 04:53:00 Test Item Value Reference Range Interpretation [...] 30.0 % CBC W/PLT COUNT & AUTO [id number] 04:53:00 Test Item Value Reference Range Interpretation [...] PERCENT (BEAKER) (test code = 2801) CALCIUM, [id number] 04:51:00 Test Item Value Reference Range Interpretation Comments CALCIUM IONIZED (BEAKER) (test 1.12 mmol/L 1.12-1.27 code = 698) PH, BLOOD (BEAKER) (test code = 7.35 1810) PROTHROMBIN [id number] 04:43:00 Test Item Value Reference Range Interpretation [...] INR is2.5-3.5 for patients wiht mechanical heart valves.[id number] 04:43:00 Test Item Value Reference Range Interpretation Comments FIBRINOGEN LEVEL (BEAKER) (test 265 mg/dl 225-434 code = 658) [id number] 04:43:00 Test Item Value Reference Range Interpretation [...] for patients wiht mechanical heart valves.ACUTE HEPATITIS [id number] 06:15:00 Test Item Value Reference Range Interpretation [...] - 0.9 Positiv e: > 0.9 The [facility] rec ommends that a positive HCV antibody result be followed up wit h a HCV Nucleic Acid Amplification t est (189931).Perfor med At: HD [facility] [address] [id number] [place], [place] [id number] kris Gould MD Ph:[phone] HIV 1 2 ANTIBODY [id number] 06:15:00 Test Item Value Reference Range Interpretation Comments AB HIV 1 2 (test code = NON REACTIVE SCREEN NONREACTIVE WJB10AD) AG HIV1 P24 (test code = NON REACTIVE P24 NONREACTIVE [id number]) - CT ABD PELVIS [id number] 12:57:00 Name: GINA MARIE [facility] : 1965 Age/S: 53 / F [address] [address] [employer] Unit #: [id number] Loc: [place] [address] Phys: Bryan Orta MD Acct: [id number] Dis Date: Status: ADM IN PHONE #: [phone] Exam Date: 03/09/2019 1200 FAX #: Reason: abd pain EXAMS: CPT: [id number] CT ABD PELVIS W/CONT 94009 LOCATION: T18 EXAM: CT ABDOMEN AND PELVIS [...] CTDI: DLP: PAGE 1 Signed ReportBASI METABOLIC [id number] 07:37:00 Test Item Value Reference Range Interpretation [...] = CA) 8.7 MG/DL 8.5-10.1 N T4 [id number] 07:37:00 Test Item Value Reference Range Interpretation Comments T4 FREE (test code = T4F) 0.70 NG/DL 0.89-1.76 L THYROID STIMULATING [id number] 07:37:00 Test Item Value Reference Range Interpretation Comments THYROID STIMULATING HORMONE 1.540 mcIU/ML 0.340-4.820 N (test code = TSH) ACUTE HEPATITIS [id number] 07:33:00 Test Item Value Reference Range Interpretation Comments AB HEPATITIS A IGM (test code = HAVMAB) AG HEPATITIS B SURFACE (test code = SCREEN NEGATIVE HBSAG) AB HEPATITIS B CORE IGM (test code = HBCMAB) AB HEPATITIS C (test code = HCVAB) RATIO <0.8 HIV 1 2 ANTIBODY [id number] 07:33:00 Test Item Value Reference Range Interpretation Comments AB HIV 1 2 (test code = NON REACTIVE SCREEN NONREACTIVE VUR54OI) AG HIV1 P24 (test code = NON REACTIVE P24 NONREACTIVE XBC7Q55) GLYCOSYLATED HEMOGLOBIN [id number] 07:26:00 Test Item Value Reference Range Interpretation Comments GLYCOSYLATED HEMOGLOBIN (HA1C) 5.8 % A1C 4.2-6.3 N (test code = GLYHGB) ESTIMATED AVERAGE GLUCOSE (test 120 MG/DLest code = EAG) CBC W/AUTO [id number] 07:21:00 Test Item Value Reference Range Interpretation [...] DIFF/SCN CRITERIA MDIFF) - CT HEAD/BRAIN W/O [id number] 19:39:00 Name[facility] [place] [facility] 1965 Age/S: 53 / F [address] [facility] [address] Unit #: [id number] Loc: [place] [address] Phys: Maria Morel MD Acct: [id number] Dis Date: Status: ADM IN PHONE #: [phone] Exam Date: 03/08/2019 8899 FAX #: Reason: near syn cope EXAMS: CPT: [id number] CT HEAD/BRAIN W/O CONT 31105 CT head History: near syncope Comparison: None [...] RT(R)(CT) CTDI: DLP: Trnscb Date/Time: 03/08/2019 (1938) Mac.PMT Orig Print D/T: S: 03/08/2019 (1941) CTDI: DLP: PAGE 1 Signed ReportDRUGS OF ABUSE SCREEN [id number] 19:12:00 Test Item Value Reference Range Interpretation [...] NEGATIVE SCcutoff <300 NG/ML [place]) COMPREHENSIVE METABOLIC [id number] 17:26:00 Test Item Value Reference Range Interpretation [...] 45-117 N TOTAL (test code = ALKP) [id number] 17:26:00 Test Item Value Reference Range Interpretation Comments MAGNESIUM (test code = MAG) 1.9 MG/DL 1.8-2.4 N [id number] 17:26:00 Test Item Value Reference Range Interpretation Comments ALCOHOL (test code = ALC) < 3 MG/DL 0-10 N COMPREHENSIVE METABOLIC [id number] 17:21:00 Test Item Value Reference Range Interpretation [...] TOTAL (test Unit/L 45-117 code = ALKP) [id number] 17:21:00 Test Item Value Reference Range Interpretation Comments MAGNESIUM (test code = MAG) MG/DL 1.8-2.4 [id number] 17:21:00 Test Item Value Reference Range Interpretation Comments ALCOHOL (test code = ALC) MG/DL 0-10 CBC W/AUTO [id number] 17:08:00 Test Item Value Reference Range Interpretation [...] DIFF/SCN CRITERIA MDIFF) - XR CHEST 1 [id number] 16:33:00 Name: GINA MARIE [place] : 1965 Age/S: 53 / F [address] [address] Unit #: [id number] Loc: [place] [address] Phys: Maria Morel MD Acct: [id number] Dis Date: Status: PRE ER PHONE #: [phone] Exam Date: 03/08/2019 2629 FAX #: Reason: near syncope EXAMS: CPT: [id number] XR CHEST 1 V 92501 Fluoro Time: DAP (Gy m2): Air Kerma [...] PAGE 1 Signed Report Name: GINA MARIE [facility] : 1965 Age/S: 53 / F [address] [address] Unit #: [id number] Loc: [place] [address] Phys: Maria Morel MD Acct: [id number] Dis Date: Status: PRE ER PHONE #: [phone] Exam Date: 03/08/2019 1625 FAX #: Reason: near syncope EXAMS: CPT: [id number] XR CHEST 1 V 48303 Fluoro Time: DAP (Gy m2): Air Kerma (mGy): <Continued>Technologist: Nanette Gordon RT(R)(CT) Trnscb Date/Time: 03/08/2019 (2116) [email or web address] Orig Print D/T: S: 03/08/2019 (4781) PAGE 2 Signed Report
[2021-10-27] MEDS ORDERED: cloNIDine HCL 0.1 MG TAB ONE (20:12)
[2021-10-27] MEDS ORDERED: ONDANSETRON 4 MG/2 ML VIAL ONE (20:12)
[2021-10-27] MEDS ORDERED: MORPHINE 2 MG/ML SYR ONE (20:12)
[2021-10-27] MEDS ORDERED: MORPHINE 4 MG/ML SYR ONE (20:17)
[2021-10-27 20:39] LABS: Absolute Lymphocytes (CBC) 3.5 K/uL (0.7-4.9); Basophils % 0.9 % (0-1.3); Hematocrit 34.4 % (36.0-45.0); Lymphocytes % 25.7 % (15.3-44.8); MPV 7.5 fL (7.6-11.3); RBC Red Blood Cell Count 4.87 M/uL (3.86-4.86)
[2021-10-27 20:46] LABS: Potassium 3.9 mmol/L (3.5-5.1)
--- NOTE | 2021-10-27 21:44 | EDPHYS ---
Physician Documentation [facility] Name: Pratibha Jennings Age: 56 yrs Sex: Female : 1965 Arrival Date: 10/27/2021 Time: 15:34 Bed 15 Private MD: ED Physician Rigoberto Carmichael HPI: 10/27 21:39 This 56 yrs old Female presents to ER via Wheelchair with complaints of rn OPIOID WITHDRAWL. 21:39 Patient reports has been taking extra pain medication lately and ran out. Has now been rn out for a few days and chronically takes narcotics for chronic pain. Sees pain management but not for another week. States had a recent injury and is seeing orthopedics for and that has caused her to take more pain medication than normal. Reports generalized malaise and fatigue, diarrhea, muscle aches and cramps, and palpitations with anxiety. No fever. No focal abdominal pain or chest pain.. Onset: The symptoms/episode began/occurred 3 day(s) ago. Severity of symptoms: At their worst the symptoms were moderate in the emergency department the symptoms are unchanged. The patient has experienced similar episodes in the past. The patient has been recently seen by a physician:. Historical: - Allergies: 16:28 Iodine; topical; ld1 16:28 Latex, Natural Rubber; ld1 - Home Meds: 16:28 Ambien 5 mg Oral tab 1 tab once daily [Active]; amlodipine oral [Active]; atorvastatin ld1 Oral [Active]; Fluoxetine Oral [Active]; gabapentin 600 mg Oral tab 1 tab daily [Active]; Hydroxyzine Oral [Active]; lidocaine patch [Active]; morphine 15 mg Oral tab 1 tab every 4 hours [Active]; oxycodone-acetaminophen 10-650 mg Oral tab 1 tab every 6 hours [Active]; tizanidine 4 mg Oral cap 1 cap [Active]; Zofran Oral [Active]; - PMHx: 16:28 Back pain; Chronic pain; Degenerative disc disease; Hyperlipidemia; Hypertension; ld1 ADD/ADHD; - PSHx: 16:28 Disc removal; Left clavicle; Left knee replacement; Left wrist surgery; Right knee ld1 replacement; Spinal surgery; - Immunization history:: Adult Immunizations up to date, Client reports receiving the 2nd dose of the Covid vaccine. - Social history:: Smoking status: Patient reports the use of cigarette tobacco products, smokes one pack cigarettes per day. Patient uses alcohol, but reports only rare drinking. Patient/guardian denies using street drugs. - Family history:: not pertinent. - Hospitalizations: : No recent hospitalization is reported. ROS: 21:39 Constitutional: Negative for fever, chills, and weight loss, Eyes: Negative for injury, rn pain, redness, and discharge, Neck: Negative for injury, pain, and swelling, Cardiovascular: Positive for palpitations Respiratory: Negative for shortness of breath, cough, wheezing, and pleuritic chest pain, Abdomen/GI: Negative for abdominal pain, positive for nausea and diarrhea Back: Negative for injury and pain, MS/Extremity: Negative for injury and deformity, Skin: Negative for injury, rash, and discoloration, Neuro: Negative for headache, numbness, tingling, and seizure. Exam: 21:39 Constitutional: This is a well developed, well nourished patient who is awake, alert, rn and in no acute distress. Head/Face: Normocephalic, atraumatic. Eyes: Periorbital areas with no swelling, redness, or edema. ENT: Dry mucous membranes Neck: Trachea midline, no thyromegaly or masses palpated, and no cervical lymphadenopathy. Supple, full range of motion without nuchal rigidity, or vertebral point tenderness. No Meningismus. Cardiovascular: Regular rate and rhythm. No pulse deficits. Respiratory: No increased work of breathing, no retractions or nasal flaring. Abdomen/GI: Soft, non-tender Skin: Warm, dry MS/ Extremity: Pulses equal, no cyanosis. Neurovascular intact. Full, normal range of motion. Equal circumference. Neuro: Awake and alert, GCS 15, oriented to person, place, time, and situation. Cranial nerves II-XII grossly intact. Motor strength 4/5 in all extremities. Sensory grossly intact. Vital Signs: 16:26 BP 180 / 166; Pulse 99; Resp 20; Temp 99.1(TE); Pulse Ox 99% on R/A; Weight 50.35 kg; ld1 Height 5 ft. 4 in. (162.56 cm); Pain 7/10; 20:32 BP 183 / 114; Pulse 83; Resp 20; Pulse Ox 95% on R/A; kd3 21:27 BP 164 / 90; Pulse 80; Resp 16; Pulse Ox 96% ; kd3 21:59 BP 154 / 95; Pulse 95; Resp 19; Pulse Ox 97% on R/A; kd3 16:26 Body Mass Index 19.05 (50.35 kg, 162.56 cm) ld1 MDM: 19:39 Patient medically screened. rn 21:39 Differential Diagnosis Dehydration, opiate withdrawal, opiate dependence, chronic pain. rn Data reviewed: vital signs, nurses notes, old medical records, lab test result(s), and as a result, I will discharge patient. Counseling: I had a detailed discussion with the patient and/or guardian regarding: the historical points, exam findings, and any diagnostic results supporting the discharge/admit diagnosis, lab results, the need for outpatient follow up, to return to the emergency department if symptoms worsen or persist or if there are any questions or concerns that arise at home. Response to treatment: the patient's symptoms have markedly improved after treatment, and as a result, I will discharge patient. Special discussion: I discussed with the patient/guardian in detail that at this point there is no indication for admission to the hospital. It is understood, however, that if the symptoms persist or worsen the patient needs to return immediately for re-evaluation. Based on the history and exam findings, there is no indication for further emergent testing or inpatient evaluation. I discussed with the patient/guardian the need to see the pipe bowl paint trimmer for further evaluation of the symptoms. ED course: Patient feels much better, improvement of vital signs. Will discharge home by refilling her gabapentin, states she takes 600 mg 3 times daily. We will not refill any narcotic pain medication. Will defer to her pain management doctor.. 10/27 19:57 Order name: CBC with Diff rn 10/27 19:57 Order name: Basic Metabolic Panel rn 10/27 19:57 Order name: CBC with Automated Diff; Complete Time: 20:57 EDMS 10/27 19:57 Order name: Basic Metabolic Panel; Complete Time: 20:57 EDMS 10/27 19:57 Order name: IV Start; Complete Time: 20:09 rn Administered Medications: 20:28 Drug: Zofran (Ondansetron) 4 mg Route: IVP; Site: left wrist; kd3 21:30 Follow up: Response: No adverse reaction kd3 20:29 Drug: morphine 4 mg Route: IVP; Site: left wrist; kd3 21:27 Follow up: BP 164 / 90; Pulse 80 bpm; Resp 16 bpm; Pulse Ox 96% kd3 21:29 Follow up: Response: No adverse reaction; Pain is decreased kd3 20:29 Drug: cloNIDine 0.1 mg Route: PO; kd3 21:29 Follow up: Response: No adverse reaction; Blood pressure is lowered kd3 21:47 Not Given (Duplicate Order): Zofran (Ondansetron) 4 mg IVP once; over 2 minutes rn 21:59 Drug: [place] (HYDROcodone-acetaminophen) 10 mg-325 mg 1 tabs Route: PO; kd3 Disposition Summary: 10/27/21 21:43 Discharge Ordered Location: Home rn Problem: new rn Symptoms: have improved rn Condition: Stable rn Diagnosis - Opioid dependence with withdrawal rn Followup: rn - With: Private Physician - When: As needed - Reason: Recheck today's complaints, Re-evaluation by your physician Discharge Instructions: - Discharge Summary Sheet rn - Opioid Withdrawal rn - Opioid Withdrawal Treatment rn Forms: - Medication Reconciliation Form rn - Thank You Letter rn - Antibiotic rn charge - Prescription Opioid Use rn Prescriptions: - gabapentin 600 mg Oral tablet - take 1 tablet by ORAL route 3 times per day As needed; 90 tablet; Refills: 0, rn Product Selection Permitted Signatures: Dispatcher [employer] Rigoberto Woodruff MD MD rn Dibbern, Lauren RN RN ld1 Lacey Merchant, RN RN kd3
--- NOTE | 2021-10-27 21:44 | ER ---
Nurse's Notes [facility] Name: Pratibha Jennings Age: 56 yrs Sex: Female : 1965 Arrival Date: 10/27/2021 Time: 15:34 Bed 15 Private MD: Diagnosis: Opioid dependence with withdrawal Presentation: 10/27 16:26 Chief complaint: Patient states: I ran out of my oxycodone and I think I am going into ld1 withdrawal. I am shaking, and I just feel lowsy. Pt reports last medication was on Tuesday. Coronavirus screen: At this time, the client does not indicate any symptoms associated with coronavirus-19. Ebola Screen: No symptoms or risks identified at this time. Initial Sepsis Screen: Does the patient meet any 2 criteria? No. Patient's initial sepsis screen is negative. Does the patient have a suspected source of infection? No. Patient's initial sepsis screen is negative. Risk Assessment: Do you want to hurt yourself or someone else? Patient reports no desire to harm self or others. 16:26 Method Of Arrival: Wheelchair ld1 16:26 Acuity: NUSRAT 4 ld1 16:26 Onset of symptoms was October 27, 2021. ld1 Triage Assessment: 16:28 General: Appears in no apparent distress. comfortable, Behavior is cooperative, ld1 appropriate for age, anxious. Pain: Complains of pain in left arm Pain does not radiate. Pain currently is 7 out of 10 on a pain scale. Quality of pain is described as throbbing, Pain began gradually, Is continuous. EENT: No signs and/or symptoms were reported regarding the EENT system. Neuro: Level of Consciousness is awake, alert, obeys commands, Oriented to person, place, time, situation, Appropriate for age. Cardiovascular: Capillary refill < 3 seconds Patient's skin is warm and dry. Respiratory: Airway is patent Respiratory effort is even, unlabored, Respiratory pattern is regular, symmetrical. GI: Abdomen is round non-distended. : No signs and/or symptoms were reported regarding the genitourinary system. Derm: No signs and/or symptoms reported regarding the dermatologic system. Musculoskeletal: No signs and/or symptoms reported regarding the musculoskeletal system. Historical: - Allergies: 16:28 Iodine; topical; ld1 16:28 Latex, Natural Rubber; ld1 - Home Meds: 16:28 Ambien 5 mg Oral tab 1 tab once daily [Active]; amlodipine oral [Active]; atorvastatin ld1 Oral [Active]; Fluoxetine Oral [Active]; gabapentin 600 mg Oral tab 1 tab daily [Active]; Hydroxyzine Oral [Active]; lidocaine patch [Active]; morphine 15 mg Oral tab 1 tab every 4 hours [Active]; oxycodone-acetaminophen 10-650 mg Oral tab 1 tab every 6 hours [Active]; tizanidine 4 mg Oral cap 1 cap [Active]; Zofran Oral [Active]; - PMHx: 16:28 Back pain; Chronic pain; Degenerative disc disease; Hyperlipidemia; Hypertension; ld1 ADD/ADHD; - PSHx: 16:28 Disc removal; Left clavicle; Left knee replacement; Left wrist surgery; Right knee ld1 replacement; Spinal surgery; - Immunization history:: Adult Immunizations up to date, Client reports receiving the 2nd dose of the Covid vaccine. - Social history:: Smoking status: Patient reports the use of cigarette tobacco products, smokes one pack cigarettes per day. Patient uses alcohol, but reports only rare drinking. Patient/guardian denies using street drugs. - Family history:: not pertinent. - Hospitalizations: : No recent hospitalization is reported. Screenin:30 Abuse screen: Denies threats or abuse. Denies injuries from another. Nutritional kd3 screening: No deficits noted. Tuberculosis screening: No symptoms or risk factors identified. Fall Risk IV access (20 points). Assessment: 20:30 General: Appears in no apparent distress. uncomfortable, Behavior is calm, cooperative, kd3 appropriate for age. Pain: Complains of pain in left shoulder pain. Neuro: No deficits noted. Level of Consciousness is awake, alert, obeys commands, Oriented to person, place, time, situation. Cardiovascular: No deficits noted. Patient's skin is warm and dry. Rhythm is sinus rhythm. Respiratory: No deficits noted. Airway is patent Respiratory effort is even, unlabored. 21:26 Reassessment: Patient is alert, oriented x 3, equal unlabored respirations, skin kd3 warm/dry/pink. pt reports improvement of pain. 21:59 Reassessment: Patient is alert, oriented x 3, equal unlabored respirations, skin kd3 warm/dry/pink. pt reports decrease in pain and other symptoms Patient states feeling better. Vital Signs: 16:26 BP 180 / 166; Pulse 99; Resp 20; Temp 99.1(TE); Pulse Ox 99% on R/A; Weight 50.35 kg; ld1 Height 5 ft. 4 in. (162.56 cm); Pain 7/10; 20:32 BP 183 / 114; Pulse 83; Resp 20; Pulse Ox 95% on R/A; kd3 21:27 BP 164 / 90; Pulse 80; Resp 16; Pulse Ox 96% ; kd3 21:59 BP 154 / 95; Pulse 95; Resp 19; Pulse Ox 97% on R/A; kd3 16:26 Body Mass Index 19.05 (50.35 kg, 162.56 cm) ld1 ED Course: 15:34 Patient arrived in ED. kc5 16:28 Triage completed. ld1 16:28 Arm band placed on right wrist. ld1 19:36 Lacey Merchant RN is Primary Nurse. kd3 19:39 Rigoberto Carmichael MD is Attending Physician. rn 20:29 CBC with Automated Diff Sent. kd3 20:29 Basic Metabolic Panel Sent. kd3 20:29 Basic Metabolic Panel Sent. kd3 20:29 CBC with Diff Sent. kd3 20:30 Patient has correct armband on for positive identification. Bed in low position. Call kd3 light in reach. Side rails up X 1. 20:30 Inserted saline lock: 22 gauge in right wrist, using aseptic technique. kd3 21:59 No provider procedures requiring assistance completed. IV discontinued, intact, kd3 bleeding controlled, No redness/swelling at site. Pressure dressing applied. Administered Medications: 20:28 Drug: Zofran (Ondansetron) 4 mg Route: IVP; Site: left wrist; kd3 21:30 Follow up: Response: No adverse reaction kd3 20:29 Drug: morphine 4 mg Route: IVP; Site: left wrist; kd3 21:27 Follow up: BP 164 / 90; Pulse 80 bpm; Resp 16 bpm; Pulse Ox 96% kd3 21:29 Follow up: Response: No adverse reaction; Pain is decreased kd3 20:29 Drug: cloNIDine 0.1 mg Route: PO; kd3 21:29 Follow up: Response: No adverse reaction; Blood pressure is lowered kd3 21:47 Not Given (Duplicate Order): Zofran (Ondansetron) 4 mg IVP once; over 2 minutes rn 21:59 Drug: [place] (HYDROcodone-acetaminophen) 10 mg-325 mg 1 tabs Route: PO; kd3 Outcome: 21:43 Discharge ordered by . rn 21:59 Discharged to home ambulatory. kd3 21:59 Condition: stable 21:59 Discharge instructions given to patient, significant other, Instructed on discharge instructions, follow up and referral plans. medication usage, Demonstrated understanding of instructions, follow-up care, medications. 22:02 Patient left the ED. kd3 Signatures: Rigoberto Carmichael MD MD rn Dibbern, Lauren RN RN ld1 Lacey Merchant RN RN kd3 Brenda [email or web address] Corrections: (The following items were deleted from the chart) 16:28 16:26 Chief complaint: Patient states: I ran out of my oxycodone and I think I am going ld1 into withdrawal. I am shaking, and I just feel lowsy. ld1
[2021-10-27] MEDS ORDERED: HYDROCODONE/APAP 10/325 TAB ONE (21:49)
[2021-10-27 22:34] VITALS: TEMP 99.1
[2021-10-27 22:38] VITALS: BP 154/95; O2SAT 97
== END 2021-10-27 22:02 | disposition home or self-care (01) ==
LOC: ER 15:25
DX: F11.23 Opioid dependence with withdrawal (principal); I10 Essential (primary) hypertension; E78.5 Hyperlipidemia, unspecified; Z91.040 Latex allergy status
CPT/HCPCS: 85025; 80048; 36415; 96375; 96374; 99284; J2405; J2270

== ENCOUNTER 2021-10-30 13:55 | Emergency (ER) | payer BC ==
--- OUTSIDE RECORDS SUMMARY | 2021-10-30 14:08 | XMS REPORT | Continuity of Care Document ---
:1965 Author Organization [facility] t Address [address] [place] [address] Care Team Providers Name Role Phone Mary [...] Number Effective Date Expiration Date S anastacio [facility] [id number] 2021 00:00:00 Problems Condition Condition Condition Status Onset Resolution Last Treating Co mments Source Name Details Category Date Date Treatment Clinician Date No known No known Disease Unive rs active active ity of problems problems [facility] Acute Problem Active 2021-04-11 Memor ia hepatic 01:17:26 l failure Acute [place] (disorder) hepatic failure (disorder) Active Problem 04/11/2021 [...] Memor ia carotid 01:17:26 l artery Left [place] stenosis carotid (disorder) artery stenosis (disorder) Active [...] M emoria ural state 01:17:26 l finding [place] (finding) Postproced ural state finding (finding) Active Problem 04/11/2021 [facility] Hyponatrem Problem Active 2021-04-11 M emoria ia 01:17:26 l (disorder) Reece n Hyponatrem ia (disorder) Active Problem 04/11/2021 [facility] Allergies, Adverse Reactions, Alerts Allergy Allergy Status Severity Reaction(s) Onset Inactive Treating Comm ents Source Name Type Date Date Clinician Iodine Drug Active Rash Univers Allergy 08-14 ity of 00:00: [facility] IODINE DRUG Active Rash Univers INGREDI 08-14 ity of 00:00: [facility] latex DA Active SV [facility] 7-12 Clear 00:00: [facility] [facility] latex DA Active SV BLISTERS, [facility] RASH 06-08 Clear 00:00: [facility] Povidone Propensi Active Rash Patient Unive rs -Iodine ty to 03-31 reports ity of adverse 00:00: blisterin [place] reaction 00 g and Medical s rashPatie Branch nt reports blisterin g and rashPatie nt reports blisterin g and rash POVIDONE DRUG Active Low Hives Univers -IODINE INGREDI 03-31 ity of 00:00: [facility] iodine DA Active PR HCA 07-04 Clear 00:00: [place] 00 [facility] iodine DA Active PR TOPICAL [facility] IODINE-RASH/ 07-04 Lanny r BLISTER 00:00: [place] 00 [facility] iodine iodine Active Memoria topical< topical< l sup>1</s sup>1</s Reece n up> up> NO KNOWN Drug Active Univers ALLERGIE Class ity of S [facility] Social History Social Habit Start Date Stop Date Quantity Comments Source History of tobacco Cigarette Smoker University of use [facility] Cigarettes smoked 2021-08-14 2021-08-14 Univers ity of current (pack per 00:00:00 00:00:00 [facility] ) - Reported [place] Tobacco use and 2021-08-14 2021-08-14 Never used Universit y of exposure 00:00:00 00:00:00 [facility] Alcohol intake 2021-08-14 2021-08-14 Current drinker Unive rsity of 00:00:00 00:00:00 of alcohol [place] [facility] (finding) [facility] Social History 2019-07-18 2019-07-18 [facility] brar 15:14:03 15:14:03 Sex [birth year] At [birth year] Universit y of 00:00:00 00:00:00 [facility] Smoking Status Start Date Stop Date Source Unknown if ever smoked [facility] y of [facility] Current every day smoker 2021-08-14 00:00:00 Uni versity of [facility] Medications Ordered Filled Start [...] 600 mg ity of tablet 10:31: tablet [place] [address] Take 1 Medical tablet 3 Branch times a day by oral route. tiZANidine Yes 4mg Take 4 mg Un malia 4 mg tablet 9-17 by mouth. ity of 10:31: [address] zolpidem Yes 5mg Take 5 mg Univ ers 12.5 mg CR 9-17 by mouth. ity of tablet 10:31: [address] ALPRAZolam Yes alprazolam U nivers 0.5 mg 9-17 0.5 mg ity of tablet 10:31: tablet [place] [address] Take 1 Medical tablet Branch every day [...] tablet 9-17 by mouth. ity of 10:31: [address] zolpidem 0 Yes 5mg Take 5 mg Univ ers 12.5 mg CR 9-17 by mouth. ity of tablet 10:31: [address] ALPRAZolam 0 Yes alprazolam U nivers 0.5 mg 9-17 0.5 mg ity of tablet 10:31: tablet [place] [address] Take 1 Medical tablet Branch every day [...] 600 mg ity of tablet 10:31: tablet [place] [address] Take 1 Medical tablet 3 Branch times a day by oral route. tiZANidine 0 Yes 4mg Take 4 mg Un malia 4 mg tablet 9-17 by mouth. ity of 10:31: [address] zolpidem 2020-0 Yes 5mg Take 5 mg Univ ers 12.5 mg CR 9-17 by mouth. ity of tablet 10:31: [address] ALPRAZolam Yes alprazolam U nivers 0.5 mg 9-17 0.5 mg ity of tablet 10:31: tablet [place] [address] Take 1 Medical tablet Branch every day [...] 600 mg ity of tablet 10:31: tablet [place] [address] Take 1 Medical tablet 3 Branch times a day by oral route. tiZANidine 2020-0 Yes 4mg Take 4 mg Un malia 4 mg tablet 9-17 by mouth. ity of 10:31: [address] zolpidem 0 Yes 5mg Take 5 mg Univ ers 12.5 mg CR 9-17 by mouth. ity of tablet 10:31: [place] [facility] ALPRAZolam Yes alprazolam U nivers [...] 4 mg Un malia 4 mg tablet 917 by mouth. 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, Weight atorvastati 2020-0 Yes 20 mg = 2 M emoria n 10 mg 1-25 tab, PO, l oral tablet 21:02: Daily, # Brendon rmann 00 60 tab, 1 Refill(s), Pharmacy: [facility] #[id number], 162.56, cm, 12/22/20 14:47:00 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, Height, 66.818, kg, 12/22/20 14:47:00 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, Weight atorvastati 2020-0 Yes 20 mg = 2 M emoria n 10 mg 1-25 tab, PO, l oral tablet 21:02: Daily, # He rmann 00 60 tab, 1 Refill(s), Pharmacy: [facility] #[id number], 162.56, cm, 12/22/20 14:47:00 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, Height, 66.818, kg, 12/22/20 14:47:00 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, Weight atorvastati 2020-0 Yes 20 mg = 2 M emoria n 10 mg 1-25 tab, PO, l oral tablet 21:02: Daily, # He rmann 00 60 tab, 1 Refill(s), Pharmacy: [facility] #[id number], 162.56, cm, 12/22/20 14:47:00 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, Height, 66.818, kg, 12/22/20 14:47:00 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, Weight atorvastati 2020-0 Yes 20 mg = 2 M emoria n 10 mg 1-25 tab, PO, l oral tablet 21:02: Daily, # He rmann 00 60 tab, 1 Refill(s), Pharmacy: [facility] #[id number], 162.56, cm, 12/22/20 14:47:00 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, Height, 66.818, kg, 12/22/20 14:47:00 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, Weight atorvastati 2020-0 Yes 20 mg = 2 M emoria n 10 mg 1-25 tab, PO, l oral tablet 21:02: Daily, # He rmann 00 60 tab, 1 Refill(s), Pharmacy: [facility] #[id number], 162.56, cm, 12/22/20 14:47:00 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, Height, 66.818, kg, 12/22/20 14:47:00 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, Weight atorvastati 2020-0 Yes 20 mg = 2 M emoria n 10 mg 1-25 tab, PO, l oral tablet 21:02: Daily, # He rmann 00 60 tab, 1 Refill(s), [facility][id number], 162.56, cm, 12/22/20 14:47:00 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, Height, 66.818, kg, 12/22/20 14:47:00 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, Weight atorvastati 2020-0 Yes 20 mg = 2 M emoria n 10 mg 1-25 tab, PO, l oral tablet 21:02: Daily, # He rmann 00 60 tab, 1 Refill(s), [id number], 162.56, cm, 12/22/20 14:47:00 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, Height, 66.818, kg, 12/22/20 14:47:00 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, Weight atorvastati 2020-0 Yes 20 mg = 2 M emoria n 10 mg 1-25 tab, PO, l oral tablet 21:02: Daily, # He rmann 00 60 tab, 1 Refill(s), [id number], 162.56, cm, 12/22/20 14:47:00 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, Height, 66.818, kg, 12/22/20 14:47:00 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, Weight atorvastati Yes 20 mg = 2 M emoria n 10 mg 1-25 tab, PO, l oral tablet 21:02: Daily, # He rmann 00 60 tab, 1 Refill(s), Pharmacy: [facility] #[id number], 162.56, cm, 12/22/20 14:47:00 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, Height, 66.818, kg, 12/22/20 14:47:00 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, Weight atorvastati Yes 20 mg = 2 M emoria n 10 mg 1-25 tab, PO, l oral tablet 21:02: Daily, # He rmann 00 60 tab, 1 Refill(s), Pharmacy: [facility] #[id number], 162.56, cm, 12/22/20 14:47:00 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, Height, 66.818, kg, 12/22/20 14:47:00 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, Weight atorvastati Yes 20 mg = 2 M emoria n 10 mg 1-25 tab, PO, l oral tablet 21:02: Daily, # He rmann 00 60 tab, 1 Refill(s), Pharmacy: [facility] #[id number], 162.56, cm, 12/22/20 14:47:00 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, Height, 66.818, kg, 12/22/20 14:47:00 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, Weight atorvastati Yes 20 mg = 2 M emoria n 10 mg 1-25 tab, PO, l oral tablet 21:02: Daily, # He rmann 00 60 tab, 1 Refill(s), Pharmacy: [facility] #[id number], 162.56, cm, 12/22/20 14:47:00 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, Height, 66.818, kg, 12/22/20 14:47:00 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, Weight atorvastati 0 Yes 20 mg = 2 M emoria n 10 mg 1-25 tab, PO, l oral tablet 21:02: Daily, # He rmann 00 60 tab, 1 Refill(s), Pharmacy: [facility] #[id number], 162.56, cm, 12/22/20 14:47:00 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, Height, 66.818, kg, 12/22/20 14:47:00 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, Weight atorvastati 2020-0 Yes 20 mg = 2 M emoria n 10 mg 1-25 tab, PO, l oral tablet 21:02: Daily, # He rmann 00 60 tab, 1 Refill(s), Pharmacy: [facility] #[id number], 162.56, cm, 12/22/20 14:47:00 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, Height, 66.818, kg, 12/22/20 14:47:00 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, Weight atorvastati 2020-0 Yes 20 mg = 2 M emoria n 10 mg 1-25 tab, PO, l oral tablet 21:02: Daily, # He rmann 00 60 tab, 1 Refill(s), Pharmacy: [facility] #[id number], 162.56, cm, 12/22/20 14:47:00 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, Height, 66.818, kg, 12/22/20 14:47:00 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, Weight atorvastati 2020-0 Yes 20 mg = 2 M emoria n 10 mg 1-25 tab, PO, l oral tablet 21:02: Daily, # He rmann 00 60 tab, 1 Refill(s), Pharmacy: [facility] #[id number], 162.56, cm, 12/22/20 14:47:00 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, Height, 66.818, kg, 12/22/20 14:47:00 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, Weight atorvastati 2020-0 Yes 20 mg = 2 M emoria n 10 mg 1-25 tab, PO, l oral tablet 21:02: Daily, # He rmann 00 60 tab, 1 Refill(s), Pharmacy: [facility] #[id number], 162.56, cm, 12/22/20 14:47:00 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, Height, 66.818, kg, 12/22/20 14:47:00 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, Weight atorvastati 2020-0 Yes 20 mg = 2 M emoria n 10 mg 1-25 tab, PO, l oral tablet 21:02: Daily, # He rmann 00 60 tab, 1 Refill(s), Pharmacy: [facility] #[id number], 162.56, cm, 12/22/20 14:47:00 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, Height, 66.818, kg, 12/22/20 14:47:00 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, Weight topiramate 2020-0 Yes 50 mg = 1 Me moria 50 mg oral 9-03 tab, PO, l tablet 18:52: BID, # 60 Reece n 00 tab, 3 Refill(s), Pharmacy: [facility] #[id number], 162.56, cm, 07/31/20 13:42:00 CDT, Height, 56.818, kg, 07/31/20 13:42:00 CDT, Weight topiramate 2020-0 Yes 50 mg = 1 Me moria 50 mg oral 9-03 tab, PO, l tablet 18:52: BID, # 60 Reece n 00 tab, 3 Refill(s), Pharmacy: [facility] #[id number], 162.56, cm, 07/31/20 13:42:00 CDT, Height, 56.818, kg, 07/31/20 13:42:00 CDT, Weight topiramate 2020-0 Yes 50 mg = 1 Me moria 50 mg oral 9-03 tab, PO, l tablet 18:52: BID, # 60 Reece n 00 tab, 3 Refill(s), Pharmacy: [facility] #[id number], 162.56, cm, 07/31/20 13:42:00 CDT, Height, 56.818, kg, 07/31/20 13:42:00 CDT, Weight topiramate 2020-0 Yes 50 mg = 1 Me moria 50 mg oral 9-03 tab, PO, l tablet 18:52: BID, # 60 Reece n 00 tab, 3 Refill(s), Pharmacy: [facility] #[id number], 162.56, cm, 07/31/20 13:42:00 CDT, Height, 56.818, kg, 07/31/20 13:42:00 CDT, Weight topiramate 2020-0 Yes 50 mg = 1 Me moria 50 mg oral 9-03 tab, PO, l tablet 18:52: BID, # 60 Reece n 00 tab, 3 Refill(s), Pharmacy: [facility] #[id number], 162.56, cm, 07/31/20 13:42:00 CDT, Height, 56.818, kg, 07/31/20 13:42:00 CDT, Weight topiramate 2020-0 Yes 50 mg = 1 Me moria 50 mg oral 9-03 tab, PO, l tablet 18:52: BID, # 60 Reece n 00 tab, 3 Refill(s), Pharmacy: [facility] #[id number], 162.56, cm, 07/31/20 13:42:00 CDT, Height, 56.818, kg, 07/31/20 13:42:00 CDT, Weight topiramate 2020-0 Yes 50 mg = 1 Me moria 50 mg oral 9-03 tab, PO, l tablet 18:52: BID, # 60 Reece n 00 tab, 3 Refill(s), Pharmacy: [facility] #[id number], 162.56, cm, 07/31/20 13:42:00 CDT, Height, 56.818, kg, 07/31/20 13:42:00 CDT, Weight topiramate 2020-0 Yes 50 mg = 1 Me moria 50 mg oral 9-03 tab, PO, l tablet 18:52: BID, # 60 Reece n 00 tab, 3 Refill(s), Pharmacy: [facility] #[id number], 162.56, cm, 07/31/20 13:42:00 CDT, Height, 56.818, kg, 07/31/20 13:42:00 CDT, Weight topiramate 2020-0 Yes 50 mg = 1 Me moria 50 mg oral 9-03 tab, PO, l tablet 18:52: BID, # 60 Reece n 00 tab, 3 Refill(s), Pharmacy: [facility] #[id number], 162.56, cm, 07/31/20 13:42:00 CDT, Height, 56.818, kg, 07/31/20 13:42:00 CDT, Weight topiramate 2020-0 Yes 50 mg = 1 Me moria 50 mg oral 9-03 tab, PO, l tablet 18:52: BID, # 60 Reece n 00 tab, 3 Refill(s), Pharmacy: [facility] #[id number], 162.56, cm, 07/31/20 13:42:00 CDT, Height, 56.818, kg, 07/31/20 13:42:00 CDT, Weight topiramate 2020-0 Yes 50 mg = 1 Me moria 50 mg oral 9-03 tab, PO, l tablet 18:52: BID, # 60 Reece n 00 tab, 3 Refill(s), Pharmacy: [facility] #[id number], 162.56, cm, 07/31/20 13:42:00 CDT, Height, 56.818, kg, 07/31/20 13:42:00 CDT, Weight topiramate 2020-0 Yes 50 mg = 1 Me moria 50 mg oral 9-03 tab, PO, l tablet 18:52: BID, # 60 Reece n 00 tab, 3 Refill(s), Pharmacy: [facility] #[id number], 162.56, cm, 07/31/20 13:42:00 CDT, Height, 56.818, kg, 07/31/20 13:42:00 CDT, Weight topiramate 2020-0 Yes 50 mg = 1 Me moria 50 mg oral 9-03 tab, PO, l tablet 18:52: BID, # 60 Reece n 00 tab, 3 Refill(s), Pharmacy: [facility] #[id number], 162.56, cm, 07/31/20 13:42:00 CDT, Height, 56.818, kg, 07/31/20 13:42:00 CDT, Weight topiramate 2020-0 Yes 50 mg = 1 Me moria 50 mg oral 9-03 tab, PO, l tablet 18:52: BID, # 60 Reece n 00 tab, 3 Refill(s), Pharmacy: [facility] #[id number], 162.56, cm, 07/31/20 13:42:00 CDT, Height, 56.818, kg, 07/31/20 13:42:00 CDT, Weight topiramate 2020-0 Yes 50 mg = 1 Me moria 50 mg oral 9-03 tab, PO, l tablet 18:52: BID, # 60 Reece n 00 tab, 3 Refill(s), Pharmacy: [facility] #[id number], 162.56, cm, 07/31/20 13:42:00 CDT, Height, 56.818, kg, 07/31/20 13:42:00 CDT, Weight topiramate 2020-0 Yes 50 mg = 1 Me moria 50 mg oral 9-03 tab, PO, l tablet 18:52: BID, # 60 Reece n 00 tab, 3 Refill(s), Pharmacy: [facility] #[id number], 162.56, cm, 07/31/20 13:42:00 CDT, Height, 56.818, kg, 07/31/20 13:42:00 CDT, Weight topiramate 2020-0 Yes 50 mg = 1 Me moria 50 mg oral 9-03 tab, PO, l tablet 18:52: BID, # 60 Reece n 00 tab, 3 Refill(s), Pharmacy: [facility] #[id number], 162.56, cm, 07/31/20 13:42:00 CDT, Height, 56.818, kg, 07/31/20 13:42:00 CDT, Weight topiramate 2020-0 Yes 50 mg = 1 Me moria 50 mg oral 9-03 tab, PO, l tablet 18:52: BID, # 60 Reece n 00 tab, 3 Refill(s), Pharmacy: [facility] #[id number], 162.56, cm, 07/31/20 13:42:00 CDT, Height, 56.818, kg, 07/31/20 13:42:00 CDT, Weight topiramate 2020-0 Yes 50 mg = 1 Me moria 50 mg oral 9-03 tab, PO, l tablet 18:52: BID, # 60 Reece n 00 tab, 3 Refill(s), Pharmacy: [facility] #[id number], 162.56, cm, 07/31/20 13:42:00 CDT, Height, 56.818, kg, 07/31/20 13:42:00 CDT, Weight topiramate 2020-0 Yes 50 mg = 1 Me moria 50 mg oral 9-03 tab, PO, l tablet 18:52: BID, # 60 Reece n 00 tab, 3 Refill(s), Pharmacy: [facility] #[id number], 162.56, cm, 07/31/20 13:42:00 CDT, Height, 56.818, kg, 07/31/20 13:42:00 CDT, Weight topiramate 2020-0 Yes 25 mg = 1 Me moria 25 MG Oral 4-15 tab, PO, l Tablet 20:04: BID, # 60 Reece n [Topamax] 00 tab, 2 Refill(s), Pharmacy: [facility] #[id number] topiramate 2020-0 Yes 25 mg = 1 Me moria 25 MG Oral 4-15 tab, PO, l Tablet 20:04: BID, # 60 Reece n [Topamax] 00 tab, 2 Refill(s), Pharmacy: [facility] #[id number] topiramate 2020-0 Yes 25 mg = 1 Me moria 25 MG Oral 4-15 tab, PO, l Tablet 20:04: BID, # 60 Reece n [Topamax] 00 tab, 2 Refill(s), Pharmacy: [facility] #[id number] topiramate 2020-0 Yes 25 mg = 1 Me moria 25 MG Oral 4-15 tab, PO, l Tablet 20:04: BID, # 60 Reece n [Topamax] 00 tab, 2 Refill(s), Pharmacy: [facility] #[id number] topiramate 2020-0 Yes 25 mg = 1 Me moria 25 MG Oral 4-15 tab, PO, l Tablet 20:04: BID, # 60 Reece n [Topamax] 00 tab, 2 Refill(s), Pharmacy: [facility] #[id number] topiramate 2020-0 Yes 25 mg = 1 Me moria 25 MG Oral 4-15 tab, PO, l Tablet 20:04: BID, # 60 Reece n [Topamax] 00 tab, 2 Refill(s), Pharmacy: [facility] #[id number] topiramate 2020-0 Yes 25 mg = 1 Me moria 25 MG Oral 4-15 tab, PO, l Tablet 20:04: BID, # 60 Reece n [Topamax] 00 tab, 2 Refill(s), Pharmacy: [facility] #[id number] topiramate 2020-0 Yes 25 mg = 1 Me moria 25 MG Oral 4-15 tab, PO, l Tablet 20:04: BID, # 60 Reece n [Topamax] 00 tab, 2 Refill(s), Pharmacy: [facility] #[id number] topiramate 2020-0 Yes 25 mg = 1 Me moria 25 MG Oral 4-15 tab, PO, l Tablet 20:04: BID, # 60 Reece n [Topamax] 00 tab, 2 Refill(s), Pharmacy: [facility] #[id number] topiramate 2020-0 Yes 25 mg = 1 Me moria 25 MG Oral 4-15 tab, PO, l Tablet 20:04: BID, # 60 Reece n [Topamax] 00 tab, 2 Refill(s), Pharmacy: [facility] #[id number] topiramate 2020-0 Yes 25 mg = 1 Me moria 25 MG Oral 4-15 tab, PO, l Tablet 20:04: BID, # 60 Reece n [Topamax] 00 tab, 2 Refill(s), Pharmacy: [facility] #[id number] topiramate 2020-0 Yes 25 mg = 1 Me moria 25 MG Oral 4-15 tab, PO, l Tablet 20:04: BID, # 60 Reece n [Topamax] 00 tab, 2 Refill(s), Pharmacy: [facility] #[id number] topiramate 2020-0 Yes 25 mg = 1 Me moria 25 MG Oral 4-15 tab, PO, l Tablet 20:04: BID, # 60 Reece n [Topamax] 00 tab, 2 Refill(s), Pharmacy: [facility] #[id number] topiramate 2020-0 Yes 25 mg = 1 Me moria 25 MG Oral 4-15 tab, PO, l Tablet 20:04: BID, # 60 Reece n [Topamax] 00 tab, 2 Refill(s), Pharmacy: [facility] #[id number] topiramate 2020-0 Yes 25 mg = 1 Me moria 25 MG Oral 4-15 tab, PO, l Tablet 20:04: BID, # 60 Reece n [Topamax] 00 tab, 2 Refill(s), Pharmacy: [facility] #[id number] topiramate 2020-0 Yes 25 mg = 1 Me moria 25 MG Oral 4-15 tab, PO, l Tablet 20:04: BID, # 60 Reece n [Topamax] 00 tab, 2 Refill(s), Pharmacy: [facility] #[id number] topiramate 2020-0 Yes 25 mg = 1 Me moria 25 MG Oral 4-15 tab, PO, l Tablet 20:04: BID, # 60 Reece n [Topamax] 00 tab, 2 Refill(s), Pharmacy: [facility] #[id number] topiramate 2020-0 Yes 25 mg = 1 Me moria 25 MG Oral 4-15 tab, PO, l Tablet 20:04: BID, # 60 Reece n [Topamax] 00 tab, 2 Refill(s), Pharmacy: [facility] #[id number] topiramate 2020-0 Yes 25 mg = 1 Me moria 25 MG Oral 4-15 tab, PO, l Tablet 20:04: BID, # 60 Reece n [Topamax] 00 tab, 2 Refill(s), Pharmacy: [facility] #[id number] topiramate 2020-0 Yes 25 mg = 1 Me moria 25 MG Oral 4-15 tab, PO, l Tablet 20:04: BID, # 60 Reece n [Topamax] 00 tab, 2 Refill(s), Pharmacy: [facility] #[id number] Morphine 2020-0 Yes 15 mg, PO, Mem oria 2-25 Q12H, 0 l 19:30: Refill(s) Morphine 2020-0 Yes 15 mg, PO, Mem oria 2-25 Q12H, 0 l 19:30: Refill(s) Morphine 2020-0 Yes 15 mg, PO, Mem oria 2-25 Q12H, 0 l 19:30: Refill(s) [place] 00 Morphine 2020-0 Yes 15 mg, PO, [...] n [Topamax] 00 tab, 2 Refill(s), Pharmacy: [facility] #[id number] topiramate 2020-0 Yes 25 mg = 1 Me moria 25 MG Oral 2-14 tab, PO, l Tablet 23:50: BID, # 60 Reece n [Topamax] 00 tab, 2 Refill(s), Pharmacy: [facility] #[id number] topiramate 2020-0 Yes 25 mg = 1 Me moria 25 MG Oral 2-14 tab, PO, l Tablet 23:50: BID, # 60 Reece n [Topamax] 00 tab, 2 Refill(s), Pharmacy: [facility] #[id number] topiramate 2020-0 Yes 25 mg = 1 Me moria 25 MG Oral 2-14 tab, PO, l Tablet 23:50: BID, # 60 Reece n [Topamax] 00 tab, 2 Refill(s), Pharmacy: [facility] #[id number] topiramate 2020-0 Yes 25 mg = 1 Me moria 25 MG Oral 2-14 tab, PO, l Tablet 23:50: BID, # 60 Reece n [Topamax] 00 tab, 2 Refill(s), Pharmacy: [facility] #[id number] topiramate 2020-0 Yes 25 mg = 1 Me moria 25 MG Oral 2-14 tab, PO, l Tablet 23:50: BID, # 60 Reece n [Topamax] 00 tab, 2 Refill(s), Pharmacy: [facility] #[id number] topiramate 2020-0 Yes 25 mg = 1 Me mor[place] 25 MG Oral 2-14 tab, PO, l Tablet 23:50: BID, # 60 Reece n [Topamax] 00 tab, 2 Refill(s), Pharmacy: [facility] #[id number] topiramate 2020-0 Yes 25 mg = 1 Me mor[place] 25 MG Oral 2-14 tab, PO, l Tablet 23:50: BID, # 60 Reece n [Topamax] 00 tab, 2 Refill(s), Pharmacy: [facility] #[id number] topiramate 2020-0 Yes 25 mg = 1 Me mor[place] 25 MG Oral 2-14 tab, PO, l Tablet 23:50: BID, # 60 Reece n [Topamax] 00 tab, 2 Refill(s), Pharmacy: [facility] #[id number] topiramate 2020-0 Yes 25 mg = 1 Me moria 25 MG Oral 2-14 tab, PO, l Tablet 23:50: BID, # 60 Reece n [Topamax] 00 tab, 2 Refill(s), Pharmacy: [facility] #[id number] topiramate 2020-0 Yes 25 mg = 1 Me mor[place] 25 MG Oral 2-14 tab, PO, l Tablet 23:50: BID, # 60 Reece n [Topamax] 00 tab, 2 Refill(s), Pharmacy: [facility] #[id number] topiramate 2020-0 Yes 25 mg = 1 Me mor[place] 25 MG Oral 2-14 tab, PO, l Tablet 23:50: BID, # 60 Reece n [Topamax] 00 tab, 2 Refill(s), Pharmacy: [facility] #[id number] topiramate 2020-0 Yes 25 mg = 1 Me mor[place] 25 MG Oral 2-14 tab, PO, l Tablet 23:50: BID, # 60 Reece n [Topamax] 00 tab, 2 Refill(s), Pharmacy: [facility] #[id number] topiramate 2020-0 Yes 25 mg = 1 Me moria 25 MG Oral 2-14 tab, PO, l Tablet 23:50: BID, # 60 Reece n [Topamax] 00 tab, 2 Refill(s), Pharmacy: [facility] #[id number] topiramate 2020-0 Yes 25 mg = 1 Me moria 25 MG Oral 2-14 tab, PO, l Tablet 23:50: BID, # 60 Reece n [Topamax] 00 tab, 2 Refill(s), Pharmacy: [facility] #[id number] topiramate 2020-0 Yes 25 mg = 1 Me moria 25 MG Oral 2-14 tab, PO, l Tablet 23:50: BID, # 60 Reece n [Topamax] 00 tab, 2 Refill(s), Pharmacy: [facility] #[id number] topiramate 2020-0 Yes 25 mg = 1 Me moria 25 MG Oral 2-14 tab, PO, l Tablet 23:50: BID, # 60 Reece n [Topamax] 00 tab, 2 Refill(s), Pharmacy: [facility] #[id number] topiramate 2020-0 Yes 25 mg = 1 Me moria 25 MG Oral 2-14 tab, PO, l Tablet 23:50: BID, # 60 Reece n [Topamax] 00 tab, 2 Refill(s), Pharmacy: [facility] #[id number] topiramate 2020-0 Yes 25 mg = 1 Me moria 25 MG Oral 2-14 tab, PO, l Tablet 23:50: BID, # 60 Reece n [Topamax] 00 tab, 2 Refill(s), Pharmacy: [facility] #[id number] topiramate 2020-0 Yes 25 mg = 1 Me moria 25 MG Oral 2-14 tab, PO, l Tablet 23:50: BID, # 60 Reece n [Topamax] 00 tab, 2 Refill(s), Pharmacy: [facility] [place] #[id number] Aspirin 81 2020-0 Yes 81 mg = 1 Me moria [facility] Enteric -09 tab, PO, l Coated 23:31: Daily, # [place] Tablet 00 90 tab, 3 Refill(s) Aspirin 81 2020-0 Yes 81 mg = 1 Me moria MG Enteric 1-09 tab, PO, l Coated 23:31: Daily, # [place] Tablet 00 90 tab, 3 Refill(s) Aspirin 81 2020-0 Yes 81 mg = 1 Me moria MG Enteric -09 tab, PO, l Coated 23:31: Daily, # [place] Tablet 00 90 tab, 3 Refill(s) Aspirin 81 2020-0 Yes 81 mg = 1 Me moria MG Enteric -09 tab, PO, l Coated 23:31: Daily, # [place] Tablet 00 90 tab, 3 Refill(s) Aspirin 81 2020-0 Yes 81 mg = 1 Me moria MG Enteric 1-09 tab, PO, l Coated 23:31: Daily, # [place] Tablet 00 90 tab, 3 Refill(s) Aspirin [...] tab, PO, l Coated 23:31: Daily, # [place] Tablet 00 90 tab, 3 Refill(s) Aspirin 81 2020-0 Yes 81 mg = 1 Me moria MG Enteric -09 tab, PO, l Coated 23:31: Daily, # [place] Tablet 00 90 tab, 3 Refill(s) Aspirin 81 2020-0 Yes 81 mg = 1 Me moria MG Enteric 1-09 tab, PO, l Coated 23:31: Daily, # [place] Tablet 00 90 tab, 3 Refill(s) Aspirin 81 2020-0 Yes 81 mg = 1 Me moria MG Enteric 1-09 tab, PO, l Coated 23:31: Daily, # [place] Tablet 00 90 tab, 3 Refill(s) Aspirin 81 2020-0 Yes 81 mg = 1 Me moria MG Enteric 1-09 tab, PO, l Coated 23:31: Daily, # [place] Tablet 00 90 tab, 3 Refill(s) Aspirin [...] [Trileptal] 00 30 tab, 3 Refill(s), Pharmacy: [facility] #[id number] oxcarbazepi 2020-0 Yes 150 mg = 1 Memoria ne 150 MG 1-09 tab, PO, l Oral Tablet 23:05: Bedtime, # Victor Hugo [Trileptal] 00 30 tab, 3 Refill(s), Pharmacy: [facility] #[id number] oxcarbazepi 2020-0 Yes 150 mg = 1 Memoria ne 150 MG 1-09 tab, PO, l Oral Tablet 23:05: Bedtime, # [place] [Trileptal] 00 30 tab, 3 Refill(s), Pharmacy: [facility] #[id number] oxcarbazepi 2020-0 Yes 150 mg = 1 Memoria ne 150 MG 1-09 tab, PO, l Oral Tablet 23:05: Bedtime, # [place] [Trileptal] 00 30 tab, 3 Refill(s), Pharmacy: [facility] #[id number] oxcarbazepi 2020-0 Yes 150 mg = 1 Memoria ne 150 MG 1-09 tab, PO, l Oral Tablet 23:05: Bedtime, # [place] [Trileptal] 00 30 tab, 3 Refill(s), Pharmacy: [facility] #[id number] oxcarbazepi 2020-0 Yes 150 mg = 1 Memoria ne 150 MG 1-09 tab, PO, l Oral Tablet 23:05: Bedtime, # Victor [place] [Trileptal] 00 30 tab, 3 Refill(s), [id number] oxcarbazepi 2020-0 Yes 150 mg = 1 Memoria ne 150 MG 1-09 tab, PO, l Oral Tablet 23:05: Bedtime, # Victor Hugo [Trileptal] 00 30 tab, 3 Refill(s), [id number] oxcarbazepi 2020-0 Yes 150 mg = 1 Memoria ne 150 MG 1-09 tab, PO, l Oral Tablet 23:05: Bedtime, # [place] [Trileptal] 00 30 tab, 3 Refill(s), [id number] oxcarbazepi 2020-0 Yes 150 mg = 1 Memoria ne 150 MG 1-09 tab, PO, l Oral Tablet 23:05: Bedtime, # [place] [Trileptal] 00 30 tab, 3 Refill(s), [id number] oxcarbazepi 2020-0 Yes 150 mg = 1 Memoria ne 150 MG 1-09 tab, PO, l Oral Tablet 23:05: Bedtime, # [place] [Trileptal] 00 30 tab, 3 Refill(s), [id number] oxcarbazepi 2020-0 Yes 150 mg = 1 Memoria ne 150 MG 1-09 tab, PO, l Oral Tablet 23:05: Bedtime, # Victor Hugo [Trileptal] 00 30 tab, 3 Refill(s), [facility][id number] oxcarbazepi 2020-0 Yes 150 mg = 1 Memoria ne 150 MG 1-09 tab, PO, l Oral Tablet 23:05: Bedtime, # [place] [Trileptal] 00 30 tab, 3 Refill(s), [facility][id number] oxcarbazepi 2020-0 Yes 150 mg = 1 Memoria ne 150 MG 1-09 tab, PO, l Oral Tablet 23:05: Bedtime, # [place] [Trileptal] 00 30 tab, 3 Refill(s), [id number] oxcarbazepi 2020-0 Yes 150 mg = 1 Memoria ne 150 MG 1-09 tab, PO, l Oral Tablet 23:05: Bedtime, # Victor Hugo [Trileptal] 00 30 tab, 3 Refill(s), Pharmacy: [facility] #[id number] oxcarbazepi 2020-0 Yes 150 mg = 1 Memoria ne 150 MG 1-09 tab, PO, l Oral Tablet 23:05: Bedtime, # Victor Hugo [Trileptal] 00 30 tab, 3 Refill(s), Pharmacy: [facility] #[id number] oxcarbazepi 2020-0 Yes 150 mg = 1 Memoria ne 150 MG 1-09 tab, PO, l Oral Tablet 23:05: Bedtime, # Victor Hugo [Trileptal] 00 30 tab, 3 Refill(s), Pharmacy: [facility] #[id number] oxcarbazepi 2020-0 Yes 150 mg = 1 Memoria ne 150 MG 1-09 tab, PO, l Oral Tablet 23:05: Bedtime, # [place] [Trileptal] 00 30 tab, 3 Refill(s), Pharmacy: [facility] #[id number] oxcarbazepi 2020-0 Yes 150 mg = 1 Memoria ne 150 MG 1-09 tab, PO, l Oral Tablet 23:05: Bedtime, # Victor Hugo [Trileptal] 00 30 tab, 3 Refill(s), Pharmacy: [facility] #[id number] oxcarbazepi 2020-0 Yes 150 mg = 1 Memoria ne 150 MG 1-09 tab, PO, l Oral Tablet 23:05: Bedtime, # [place] [Trileptal] 00 30 tab, 3 Refill(s), Pharmacy: [facility] #[id number] oxcarbazepi 2020-0 Yes 150 mg = 1 Memoria ne 150 MG 1-09 tab, PO, l Oral Tablet 23:05: Bedtime, # [place] [Trileptal] 00 30 tab, 3 Refill(s), Pharmacy: [facility] #[id number] atorvastati 2018-11 Yes 40 mg = 1 M emoria n 40 mg 2-11 tab, PO, l oral tablet 23:32: Daily, # Brendon monet 39 30 tab, 2 Refill(s), Pharmacy: [facility] #[id number] OptuLink 2018-11 Yes 40 mg = 1 M emoria n 40 mg 2-11 tab, PO, l oral tablet 23:32: Daily, # He rmann 39 30 tab, 2 Refill(s), Pharmacy: [facility][id number] [facility] 2018-[facility] Yes 40 mg = 1 M emoria n 40 mg 2-11 tab, PO, l oral tablet 23:32: Daily, # He rmann 39 30 tab, 2 Refill(s), Pharmacy: [facility] #[id number] [facility] 2018-11 Yes 40 mg = 1 M emoria n 40 mg 2-11 tab, PO, l oral tablet 23:32: Daily, # He rmann 39 30 tab, 2 Refill(s), Pharmacy: [facility] #[id number] OptuLink 2018-11 Yes 40 mg = 1 M emoria n 40 mg 2-11 tab, PO, l oral tablet 23:32: Daily, # He rmann 39 30 tab, 2 Refill(s), Pharmacy: [facility] #[id number] OptuLink 2018-11 Yes 40 mg = 1 M emoria n 40 mg 2-11 tab, PO, l oral tablet 23:32: Daily, # He rmann 39 30 tab, 2 Refill(s), Pharmacy: [facility] #[id number] OptuLink 2018-11 Yes 40 mg = 1 M emoria n 40 mg 2-11 tab, PO, l oral tablet 23:32: Daily, # He rmann 39 30 tab, 2 Refill(s), Pharmacy: [facility] #[id number] OptuLink 2018-11 Yes 40 mg = 1 M emoria n 40 mg 2-11 tab, PO, l oral tablet 23:32: Daily, # He rmann 39 30 tab, 2 Refill(s), Pharmacy: [facility] #[id number] OptuLink 2018-11 Yes 40 mg = 1 M emoria n 40 mg 2-11 tab, PO, l oral tablet 23:32: Daily, # He rmann 39 30 tab, 2 Refill(s), Pharmacy: [facility] #[id number] OptuLink 2018-11 Yes 40 mg = 1 M emoria n 40 mg 2-11 tab, PO, l oral tablet 23:32: Daily, # He rmann 39 30 tab, 2 Refill(s), Pharmacy: [facility] #[id number] [facility] 2018-11 Yes 40 mg = 1 M emoria n 40 mg 2-11 tab, PO, l oral tablet 23:32: Daily, # Brendon rmann 39 30 tab, 2 Refill(s), Pharmacy: [facility] #[id number] [facility] 2018-11 Yes 40 mg = 1 M emoria n 40 mg 2-11 tab, PO, l oral tablet 23:32: Daily, # He rmann 39 30 tab, 2 Refill(s), Pharmacy: [facility] #[id number] [facility] 2018-11 Yes 40 mg = 1 M emoria n 40 mg 2-11 tab, PO, l oral tablet 23:32: Daily, # Brendon rmann 39 30 tab, 2 Refill(s), Pharmacy: [facility] #[id number] [facility] 2018-11 Yes 40 mg = 1 M emoria n 40 mg 2-11 tab, PO, l oral tablet 23:32: Daily, # He rmann 39 30 tab, 2 Refill(s), Pharmacy: [facility] #[id number] [facility] 2018-11 Yes 40 mg = 1 M emoria n 40 mg 2-11 tab, PO, l oral tablet 23:32: Daily, # Brendon rmann 39 30 tab, 2 Refill(s), Pharmacy: [facility] #[id number] [facility] 2018-11 Yes 40 mg = 1 M emoria n 40 mg 2-11 tab, PO, l oral tablet 23:32: Daily, # He rmann 39 30 tab, 2 Refill(s), Pharmacy: [facility][id number] [facility]-11 Yes 40 mg = 1 M emoria n 40 mg 2-11 tab, PO, l oral tablet 23:32: Daily, # He rmann 39 30 tab, 2 Refill(s), Pharmacy: [facility] #[id number] [facility] 2018-11 Yes 40 mg = 1 M emoria n 40 mg 2-11 tab, PO, l oral tablet 23:32: Daily, # He rmann 39 30 tab, 2 Refill(s), Pharmacy: [facility] #[id number] atorvastati 2018-11 Yes 40 mg = 1 M emoria n 40 mg 2-11 tab, PO, l oral tablet 23:32: Daily, # He rmann 39 30 tab, 2 Refill(s), Pharmacy: [facility] #[id number] atorvasta 2018-11 Yes 40 mg = 1 M emoria n 40 mg 2-11 tab, PO, l oral tablet 23:32: Daily, # He rmann 39 30 tab, 2 Refill(s), Pharmacy: [facility] #[id number] [facility] 2018-11 Yes 25 mg = 1 Me moria 25 MG Oral 0-23 tab, PO, l Tablet 18:40: BID, # 60 Reece n [Topamax] 02 tab, 2 Refill(s), Pharmacy: [facility] #[id number] [facility] 2018-11 Yes 25 mg = 1 Me moria 25 MG Oral 0-23 tab, PO, l Tablet 18:40: BID, # 60 Reece n [Topamax] 02 tab, 2 Refill(s), Pharmacy: [facility] #[id number] [facility] 2018-11 Yes 25 mg = 1 Me moria 25 MG Oral 0-23 tab, PO, l Tablet 18:40: BID, # 60 Reece n [Topamax] 02 tab, 2 Refill(s), Pharmacy: [facility] #[id number] topiramate 2018-11 Yes 25 mg = 1 Me moria 25 MG Oral 0-23 tab, PO, l Tablet 18:40: BID, # 60 Reece n [Topamax] 02 tab, 2 Refill(s), Pharmacy: [facility] #[id number] topiramate 2018-11 Yes 25 mg = 1 Me moria 25 MG Oral 0-23 tab, PO, l Tablet 18:40: BID, # 60 Reece n [Topamax] 02 tab, 2 Refill(s), Pharmacy: [facility] #[id number] topiramate 2018-11 Yes 25 mg = 1 Me moria 25 MG Oral 0-23 tab, PO, l Tablet 18:40: BID, # 60 Reece n [Topamax] 02 tab, 2 Refill(s), Pharmacy: [facility] #[address] [place], [place] [address]mate 2018-11 Yes 25 mg = 1 Me moria 25 MG Oral 0-23 tab, PO, l Tablet 18:40: BID, # 60 Reece n [Topamax] 02 tab, 2 Refill(s), Pharmacy: [facility] #[address] [place], [place] [address]mate 2018-11 Yes 25 mg = 1 Me moria 25 MG Oral 0-23 tab, PO, l Tablet 18:40: BID, # 60 Reece n [Topamax] 02 tab, 2 Refill(s), Pharmacy: [facility] #[address] [place], [place] [address]mate 2018-11 Yes 25 mg = 1 Me moria 25 MG Oral 0-23 tab, PO, l Tablet 18:40: BID, # 60 Reece n [Topamax] 02 tab, 2 Refill(s), Pharmacy: [facility] #[address] [place], [place] [address]mate 2018-11 Yes 25 mg = 1 Me moria 25 MG Oral 0-23 tab, PO, l Tablet 18:40: BID, # 60 Reece n [Topamax] 02 tab, 2 Refill(s), Pharmacy: [facility] #[address] [place], [place] [address]mate 2018-11 Yes 25 mg = 1 Me moria 25 MG Oral 0-23 tab, PO, l Tablet 18:40: BID, # 60 Reece n [Topamax] 02 tab, 2 Refill(s), [id number] Yes 25 mg = 1 Me moria 25 MG Oral 0-23 tab, PO, l Tablet 18:40: BID, # 60 Reece n [Topamax] 02 tab, 2 Refill(s), Pharmacy: [facility] #[address] [place], [place] [address]iramate 2018-11 Yes 25 mg = 1 Me moria 25 MG Oral 0-23 tab, PO, l Tablet 18:40: BID, # 60 Reece n [Topamax] 02 tab, 2 Refill(s), Pharmacy: [facility] #[address] [place], [place] [address]mate 2018-11 Yes 25 mg = 1 Me moria 25 MG Oral 0-23 tab, PO, l Tablet 18:40: BID, # 60 Reece n [Topamax] 02 tab, 2 Refill(s), Pharmacy: [id number] [facility] Yes 25 mg = 1 Me moria 25 MG Oral 0-23 tab, PO, l Tablet 18:40: BID, # 60 Reece n [Topamax] 02 tab, 2 Refill(s), Pharmacy: [id number] [facility] Yes 25 mg = 1 Me moria 25 MG Oral 0-23 tab, PO, l Tablet 18:40: BID, # 60 Reece n [Topamax] 02 tab, 2 Refill(s), Pharmacy: [facility][id number] [facility] Yes 25 mg = 1 Me moria 25 MG Oral 0-23 tab, PO, l Tablet 18:40: BID, # 60 Reece n [Topamax] 02 tab, 2 Refill(s), Pharmacy: [facility][id number] [facility] Yes 25 mg = 1 Me moria 25 MG Oral 0-23 tab, PO, l Tablet 18:40: BID, # 60 Reece n [Topamax] 02 tab, 2 Refill(s), Pharmacy: [facility][id number] [facility] Yes 25 mg = 1 Me moria 25 MG Oral 0-23 tab, PO, l Tablet 18:40: BID, # 60 Reece n [Topamax] 02 tab, 2 Refill(s), Pharmacy: [facility][id number] [facility] Yes 25 mg = 1 Me moria 25 MG Oral 0-23 tab, PO, l Tablet 18:40: BID, # 60 Reece n [Topamax] 02 tab, 2 Refill(s), Pharmacy: [id number] [facility] 25 mg = 1 Me moria 25 MG Oral 8-21 tab, PO, l Tablet 15:45: Bedtime, # Mary nn [Topamax] 00 30 tab, 2 Refill(s), Pharmacy: [id number] [facility] Yes 25 mg = 1 Me moria 25 MG Oral 8-21 tab, PO, l Tablet 15:45: Bedtime, # Mary nn [Topamax] 00 30 tab, 2 Refill(s), Pharmacy: [facility] #[id number] topiramate 2019-0 Yes 25 mg = 1 Me moria 25 MG Oral 8-21 tab, PO, l Tablet 15:45: Bedtime, # Mary nn [Topamax] 00 30 tab, 2 Refill(s), Pharmacy: [facility] #[id number] topiramate 2019-0 Yes 25 mg = 1 Me moria 25 MG Oral 8-21 tab, PO, l Tablet 15:45: Bedtime, # Mary nn [Topamax] 00 30 tab, 2 Refill(s), Pharmacy: [facility] #[id number] topiramate 2019-0 Yes 25 mg = 1 Me moria 25 MG Oral 8-21 tab, PO, l Tablet 15:45: Bedtime, # Mary nn [Topamax] 00 30 tab, 2 Refill(s), Pharmacy: [facility] #[id number] topiramate 2019-0 Yes 25 mg = 1 Me moria 25 MG Oral 8-21 tab, PO, l Tablet 15:45: Bedtime, # Mary nn [Topamax] 00 30 tab, 2 Refill(s), Pharmacy: [facility] #[id number] topiramate 2019-0 Yes 25 mg = 1 Me moria 25 MG Oral 8-21 tab, PO, l Tablet 15:45: Bedtime, # Mary nn [Topamax] 00 30 tab, 2 Refill(s), Pharmacy: [facility] #[id number] topiramate 2019-0 Yes 25 mg = 1 Me moria 25 MG Oral 8-21 tab, PO, l Tablet 15:45: Bedtime, # Mary nn [Topamax] 00 30 tab, 2 Refill(s), Pharmacy: [facility] #[id number] topiramate 2019-0 Yes 25 mg = 1 Me moria 25 MG Oral 8-21 tab, PO, l Tablet 15:45: Bedtime, # Mary nn [Topamax] 00 30 tab, 2 Refill(s), Pharmacy: [facility] #[id number] topiramate 2019-0 Yes 25 mg = 1 Me moria 25 MG Oral 8-21 tab, PO, l Tablet 15:45: Bedtime, # Mary nn [Topamax] 00 30 tab, 2 Refill(s), Pharmacy: [facility] #[id number] topiramate 2019-0 Yes 25 mg = 1 Me moria 25 MG Oral 8-21 tab, PO, l Tablet 15:45: Bedtime, # Mary nn [Topamax] 00 30 tab, 2 Refill(s), [facility][id number] topiramate 2019-0 Yes 25 mg = 1 Me moria 25 MG Oral 8-21 tab, PO, l Tablet 15:45: Bedtime, # Mary nn [Topamax] 00 30 tab, 2 Refill(s), [facility][id number] topiramate 2019-0 Yes 25 mg = 1 Me moria 25 MG Oral 8-21 tab, PO, l Tablet 15:45: Bedtime, # Mary nn [Topamax] 00 30 tab, 2 Refill(s), [facility][id number] topiramate 2019-0 Yes 25 mg = 1 Me moria 25 MG Oral 8-21 tab, PO, l Tablet 15:45: Bedtime, # Mary nn [Topamax] 00 30 tab, 2 Refill(s), [facility][id number] topiramate 2019-0 Yes 25 mg = 1 Me moria 25 MG Oral 8-21 tab, PO, l Tablet 15:45: Bedtime, # Mary nn [Topamax] 00 30 tab, 2 Refill(s), [facility][id number] topiramate 2019-0 Yes 25 mg = 1 Me moria 25 MG Oral 8-21 tab, PO, l Tablet 15:45: Bedtime, # Mary nn [Topamax] 00 30 tab, 2 Refill(s), [facility][id number] topiramate 2019-0 Yes 25 mg = 1 Me moria 25 MG Oral 8-21 tab, PO, l Tablet 15:45: Bedtime, # Mary nn [Topamax] 00 30 tab, 2 Refill(s), [facility][id number] topiramate 2019-0 Yes 25 mg = 1 Me moria 25 MG Oral 8-21 tab, PO, l Tablet 15:45: Bedtime, # Mary nn [Topamax] 00 30 tab, 2 Refill(s), [facility][id number] topiramate 2019-0 Yes 25 mg = 1 Me moria 25 MG Oral 8-21 tab, PO, l Tablet 15:45: Bedtime, # Mary nn [Topamax] 00 30 tab, 2 Refill(s), [id number] topiramate 2019-0 Yes 25 mg = 1 Me moria 25 MG Oral 8-21 tab, PO, l Tablet 15:45: Bedtime, # Mary nn [Topamax] 00 30 tab, 2 Refill(s), [facility][id number] atorvastati 0 Yes PO, Daily, Memoria n [...] Q8H, 0 Victor Hugo [Zofran] Refill(s) Hydroxyzine 20190 Yes 25 mg [...] tab, PO, l tablet, 15:00: Q6H, 0 [place] Refill(s) release gabapentin 2019-0 Yes 600 mg, [...] Q8H, 0 Victor Hugo [Zofran] Refill(s) Hydroxyzine 20190 Yes 25 mg [...] tab, PO, l Tablet 15:00: Q8H, 0 [place] [Zofran] 00 Refill(s) Hydroxyzine 2019 Yes 25 mg = 1 M emoria 8-21 tab, PO, l 15:00: Q6H, PRN rash / allergy symptoms, 0 Refill(s) Ondansetron 20190 Yes 4 mg = 1 Me moria 4 MG Oral 21 tab, PO, l Tablet 15:00: Q8H, 0 [place] [Zofran] 00 Refill(s) Fluoxetine 2019-0 Yes 60 mg, PO, M emoria 8-21 Daily, 0 l 15:00: Refill(s) Hydroxyzine 2019- Yes 25 mg = 1 M emoria 8-21 tab, PO, l 15:00: Q6H, PRN rash / allergy symptoms, 0 Refill(s) Fluoxetine 2019-0 Yes 60 mg, PO, M emoria 8-21 Daily, 0 l 15:00: Refill(s) [place] 00 Immunizations Ordered Filled Immunization Date Status Comments [facility] e Immunization Name Name SARS-COV-2 COVID-19 2021-04-06 Completed [facility] of MODERNA VACCINE 00:00:00 [facility] SARS-COV-2 COVID-19 2021-04-06 Completed Unive rsity of MODERNA VACCINE 00:00:00 [facility] SARS-COV-2 COVID-19 2021-04-06 Completed Unive rsity of MODERNA VACCINE 00:00:00 [facility] SARS-COV-2 COVID-19 2021-04-06 Completed Unive rsity of MODERNA VACCINE 00:00:00 [facility] SARS-COV-2 COVID-19 2021-04-06 Completed Unive rsity of MODERNA VACCINE 00:00:00 [facility] [id number] 2021-04-06 Completed Memor ial [place] RNA-1273vaxMODERNA< 00:00:00 sup>1</sup> [id number] 2021-04-06 Completed Memor ial [place] RNA-1273vaxMODERNA< 00:00:00 sup>1</sup> [id number] 2021-04-06 Completed Memor ial [place] RNA-1273vaxMODERNA< 00:00:00 sup>1</sup> [id number] 2021-04-06 Completed Memor ial [place] RNA-1273vaxMODERNA< 00:00:00 sup>1</sup> [id number]-[facility] 2021-04-06 Completed Memor ial [place] RNA-1273vaxMODERNA< 00:00:00 sup>1</sup> [id number] 2021-04-06 Completed Memor ial [place] RNA-1273vaxMODERNA< 00:00:00 sup>1</sup> [id number] 2021-04-06 Completed Memor ial [place] RNA-1273vaxMODERNA< 00:00:00 sup>1</sup> [id number] 2021-04-06 Completed Memor ial [place] RNA-1273vaxMODERNA< 00:00:00 sup>1</sup> [id number]- 2021-04-06 Completed Memor ial [place] RNA-1273vaxMODERNA< 00:00:00 sup>1</sup> [id number]- 2021-04-06 Completed Memor ial [place] RNA-1273vaxMODERNA< 00:00:00 sup>1</sup> [id number]-[facility] 2021-04-06 Completed Memor ial [place] RNA-1273vaxMODERNA< 00:00:00 sup>1</sup> [id number]- 2021-04-06 Completed Memor ial [place] RNA-1273vaxMODERNA< 00:00:00 sup>1</sup> [id number]-[facility] 2021-04-06 Completed Memor ial [place] RNA-1273vaxMODERNA< 00:00:00 sup>1</sup> [id number]-[facility] 2021-04-06 Completed Memor ial [place] RNA-1273vaxMODERNA< 00:00:00 sup>1</sup> [id number]- 2021-04-06 Completed Memor ial [place] RNA-1273vaxMODERNA< 00:00:00 sup>1</sup> [id number]-[id number]-[facility] 2021-04-06 Completed Memor ial [place] RNA-1273vaxMODERNA< 00:00:00 sup>1</sup> [id number]- 2021-04-06 Completed Memor ial [place] RNA-1273vaxMODERNA< 00:00:00 sup>1</sup> [id number]- 2021-04-06 Completed Memor ial [place] RNA-1273vaxMODERNA< 00:00:00 sup>1</sup> [id number]-[facility] 2021-04-06 Completed Memor ial [place] RNA-1273vaxMODERNA< 00:00:00 sup>1</sup> [id number] 2021-04-06 Completed Megan Gay RNA-1273vaxMODERNA< 00:00:00 sup>1</sup> SARS-COV-2 COVID-19 2021-03-12 Completed Unive rsity of MODERNA VACCINE 00:00:00 [facility] SARS-COV-2 COVID-19 2021-03-12 Completed Unive rsity of MODERNA VACCINE 00:00:00 [facility] SARS-COV-2 COVID-19 2021-03-12 Completed Unive rsity of MODERNA VACCINE 00:00:00 [facility] SARS-COV-2 COVID-19 2021-03-12 Completed Unive rsity of MODERNA VACCINE 00:00:00 [facility] SARS-COV-2 COVID-19 2021-03-12 Completed Unive rsity of MODERNA VACCINE 00:00:00 [facility] Influenza Virus 2020-11-28 Completed Univers[facility] y of Vaccine (3+ yrs) 00:00:00 [facility] Influenza Virus 2020-11-28 Completed [facility] of Vaccine (3+ yrs) 00:00:00 [facility] Influenza Virus 2020-11-28 Completed [facility] of Vaccine (3+ yrs) 00:00:00 [facility] Influenza Virus 2020-11-28 Completed Universit y of Vaccine (3+ yrs) 00:00:00 [facility] Influenza Virus 2020-11-28 Completed Universit y of Vaccine (3+ yrs) 00:00:00 [facility] Influenza Virus 2017-10-06 Completed Universit y of Vaccine Quad IM, 00:00:00 [facility] dical Preserv and ABX Branch Free 2-64 YRS Pneumococcal 13 2017-10-06 Completed Universit y of Conjugate, [id number] 00:00:00 [facility] dical (Prevnar 13) Branch Influenza Virus 2017-10-06 Completed Universit y of Vaccine Quad IM, 00:00:00 [facility] dical Preserv and ABX Branch Free 2-64 YRS Pneumococcal 13 2017-10-06 Completed Universit y of Conjugate, PCV13 00:00:00 [facility] dical (Prevnar 13) Branch Influenza Virus 2017-10-06 Completed Universit y of Vaccine Quad IM, 00:00:00 [facility] dical Preserv and ABX Branch Free 2-64 YRS Pneumococcal 13 2017-10-06 Completed Universit y of Conjugate, [id number] 00:00:00 [facility] dical (Prevnar 13) Branch Influenza Virus 2017-10-06 Completed Universit y of Vaccine Quad IM, 00:00:00 [facility] dical Preserv and ABX Branch Free 2-64 YRS Pneumococcal 13 2017-10-06 Completed Universit y of Conjugate, PCV13 00:00:00 [facility] dical (Prevnar 13) Branch Influenza Virus 2017-10-06 Completed Universit y of Vaccine Quad IM, 00:00:00 [facility] dical Preserv and ABX Branch Free 2-64 YRS Pneumococcal 13 2017-10-06 Completed Universit y of Conjugate, [id number] 00:00:00 [facility] dical (Prevnar 13) [place] Vital Signs Vital Name Observation Time Observation Value Comments Source Systolic blood 2021-08-14 15:39:00 130 mm[facility]Hg[facility] Diastolic blood 2021-08-14 15:39:00 81 mm[Hg] [facility] Heart rate 2021-08-14 15:39:00 76 /min [facility] Body temperature 2021-08-14 15:39:00 37 [facility] Respiratory rate 2021-08-14 15:39:00 18 /min [facility] Body height 2021-08-14 15:39:00 162.6 cm [facility] Body weight 2021-08-14 15:39:00 53.933 kg [facility] BMI 2021-08-14 15:39:00 20.41 kg/m2 [facility] Oxygen saturation in 2021-08-14 15:39:00 100 /min [facility] Arterial blood by [facility] Pulse oximetry Branch Systolic (mm Hg) 2021-04-08 14:16:00 Rao Gay Diastolic (mm Hg) 2021-04-08 14:16:00 Olimpia Gay Heart Rate 2021-04-08 14:16:00 [facility] Respitory Rate 2021-04-08 14:16:00 [facility] Height 2021-04-08 14:16:00 162.56 cm [facility] Weight 2021-04-08 14:16:00 [facility] BMI Calculated 2021-04-08 14:16:00 [facility] [place] Systolic (mm Hg) 2020-12-22 20:47:00 [facility]ao [facility] Diastolic (mm Hg) 2020-12-22 20:47:00 [facility] Height 2020-12-22 20:47:00 162.56 cm [facility] Weight 2020-12-22 20:47:00 [facility] BMI Calculated 2020-12-22 20:47:00 [facility] Systolic (mm Hg) 2020-07-31 18:42:00 Rao [facility] Diastolic (mm Hg) 2020-07-31 18:42:00 [facility] Heart Rate 2020-07-31 18:42:00 [facility] Respitory Rate 2020-07-31 18:42:00 [facility] [place] Height 2020-07-31 18:42:00 162.56 cm [facility] Weight 2020-07-31 18:42:00 [facility] BMI Calculated 2020-07-31 18:42:00 [facility] Temperature Oral (F) 2020-07-31 18:42:00 96.9 F [facility] Systolic (mm Hg) 2020-01-22 17:49:00 [facility] [place] Diastolic (mm Hg) 2020-01-22 17:49:00 [facility] Heart Rate 2020-01-22 17:49:00 [facility] [place] Respitory Rate 2020-01-22 17:49:00 [facility] [place] Height 2020-01-22 17:49:00 162.56 cm [facility] Weight 2020-01-22 17:49:00 [facility] BMI Calculated 2020-01-22 17:49:00 [facility] [place] Systolic (mm Hg) 2020-01-11 21:53:00 [facility]ao [facility] [place] Diastolic (mm Hg) 2020-01-11 21:53:00 [facility] Heart Rate 2020-01-11 21:53:00 [facility] Height 2020-01-11 21:53:00 162.56 cm [facility] Weight 2020-01-11 21:53:00 [facility] BMI Calculated 2020-01-11 21:53:00 [facility] Systolic (mm Hg) 2019-12-06 22:16:00 Rao [facility] Diastolic (mm Hg) 2019-12-06 22:16:00 [facility] Heart Rate 2019-12-06 22:16:00 [facility] Respitory Rate 2019-12-06 22:16:00 [facility] Height 2019-12-06 22:16:00 162.56 cm [facility] Weight 2019-12-06 22:16:00 [facility] BMI Calculated 2019-12-06 22:16:00 [facility] [place] BMI Calculated 2019-11-09 17:41:00 [facility] [place] Height 2019-11-09 17:41:00 162.56 cm [facility] Weight 2019-11-09 17:41:00 [facility] Systolic (mm Hg) 2019-09-19 18:12:00 Rao [facility] Diastolic (mm Hg) 2019-09-19 18:12:00 [facility] Heart Rate 2019-09-19 18:12:00 [facility] Respitory Rate 2019-09-19 18:12:00 [facility] [place] Height 2019-09-19 18:12:00 162.56 cm [facility] Weight 2019-09-19 18:12:00 [facility] BMI Calculated 2019-09-19 18:12:00 [facility] [place] Systolic (mm Hg) 2019-08-23 19:05:00 [facility]ao [facility] [place] Diastolic (mm Hg) 2019-08-23 19:05:00 [facility] [place] Heart Rate 2019-08-23 19:05:00 [facility] Respitory Rate 2019-08-23 19:05:00 [facility] [place] Height 2019-08-23 19:05:00 162.56 cm [facility] Weight 2019-08-23 19:05:00 [facility] BMI Calculated 2019-08-23 19:05:00 [facility] [place] Systolic (mm Hg) 2019-07-18 14:57:00 [facility]ao [facility] [place] Diastolic (mm Hg) 2019-07-18 14:57:00 [facility] Heart Rate 2019-07-18 14:57:00 Yuliana Gay Respitory Rate 2019-07-18 14:57:00 May [place] Height 2019-07-18 14:57:00 162.56 cm Yuliana Gay Weight 2019-07-18 14:57:00 Yuliana Gay BMI Calculated 2019-07-18 14:57:00 May Washburn Procedures Procedure Date / Time Performing Clinician Source Performed ASSIGNMENT OF BENEFITS 2021-08-14 15:11:27 Doctor Unassigned, No [facility] Arthroplasty [facility] Laminectomy [facility] Encounters Start End Encounter Admission Attending Care Care Encounter Source Date/Time Date/Time Type Type Clinicians Facility Department ID 2021-06-08 Inpatient EL Eulogio, [facility] DAYS [id number] [facility] 10:30:00 [place] [id number] [facility] 2021-06-05 Inpatient EL Eulogio, [facility] DAYS [id number] [facility] 11:30:00 [place] [id number] [facility] 2021-05-19 Inpatient Eulogio, [facility] DAYS [id number] [facility] 07:30:00 [place] [id number] [facility] 2021-05-15 Inpatient EL Eulogio, [facility]AC[facility] DAYS [id number] [facility] 14:00:00 [place] [id number] [facility] 2022-08-20 2022-08-20 Outpatient TONY OLGUIN [facility] [id number] Univers 10:30:00 10:30:00 [id number] [facility] 2022-08-20 2022-08-20 Outpatient Tasia DAS TONY [facility] [id number] Univers 10:30:00 10:30:00 [facility] 2021-08-31 2021-08-31 Outpatient EULOGIO, [facility] [id number] 00:00:00 00:00:00 [place] [address] 2021-08-27 2021-08-27 Outpatient EULOGIO, [facility] [id number] 00:00:00 00:00:00 [place] [address] 2021-08-24 2021-08-24 Outpatient EULOGIO, [facility] [id number] [address] [place] [address] 00:00:00 00:00:00 BEVERLY 384 Method i 2021-08-20 2021-08-20 Outpatient EULOGIO, [facility] [id number] 00:00:00 00:00:00 BEVERLY 342 Method i 2021-08-19 2021-08-19 Outpatient EULOGIO, [facility] [id number] [address] 00:00:00 00:00:00 BEVERLY 343 Method i 2021-08-14 2021-08-14 [facility] [id number] [facility] 10:12:38 10:59:24 Visit Cezar Lopez [id number] it y [facility] [id number] [facility] [id number] [address] 2021-08-14 2021-08-14 Outpatient R TONY DAS [facility] [id number] [facility] 10:15:00 10:15:00 ity of [facility] 2021-08-14 2021-08-14 Orders Doctor [place] [id number] [facility] 00:00:00 00:00:00 Only Unassigned, LISA [id number] ity of [facility] 4.2.7.2.686 [facility] [id number] [address] 2021-08-10 2021-08-10 Outpatient EULOGIO, [facility] [id number] [address] 00:00:00 00:00:00 BEVERLY 230 Method i 2021-08-06 2021-08-06 Outpatient EULOGIO, [facility] [id number] [address] 00:00:00 00:00:00 BEVERLY 205 Method i 2021-07-30 2021-07-30 Outpatient EULOGIO, [facility] [id number] [address] 00:00:00 00:00:00 BEVERLY 805 Method i 2021-07-27 2021-07-27 Outpatient EULOGIO, [facility] [id number] 00:00:00 00:00:00 BEVERLY 774 Method i 2021-07-23 2021-07-23 Outpatient EULOGIO, [facility] [id number] 00:00:00 00:00:00 BEVERLY 727 Method i 2021-07-20 2021-07-20 Outpatient EULOGIO, [facility] [id number] [address] 00:00:00 00:00:00 BEVERLY 774 Method i 2021-07-09 2021-07-09 Outpatient EULOGIO, [facility] [id number] 00:00:00 00:00:00 BEVERLY 643 Method i 2021-07-08 2021-07-08 Outpatient EULOGIO, [facility] [id number] [address] 00:00:00 00:00:00 BEVERLY 592 Method i 2021-07-02 2021-07-02 Outpatient EULOGIO, [facility] [id number] 00:00:00 00:00:00 BEVERLY 982 Method i 2021-06-23 2021-06-23 Outpatient EULOGIO, [facility] [id number] 00:00:00 00:00:00 BEVERLY 244 Method i 2021-06-09 2021-06-11 Inpatient RODNEY Patterson, HCACL MEDI.01 [id number] [facility] 16:03:00 15:30:00 Reji [id number] [facility] 2021-06-09 2021-06-09 Outpatient Jason Bearden [facility] [id number] [facility] 16:08:00 16:08:00 [id number] [facility] 2021-04-08 2021-04-09 Outpatient nullFlavo MNA [id number] [facility] 14:00:00 04:59:59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 DASW, SUSIE POCT-GLUCOSE [id number] 16:43:00 Test Item Value Reference Range Interpretation Comments POC-GLUCOSE METER 164 mg/dL 70-110 H : TESTED A T [facility] 6720 (SHANNONAKER) (test code = [place], 1538) [address]: Assault Boat Coxswain/Techni theo ID = [id number] for Karely Bautista CMV PCR, [id number] 15:47:00 Test Item Value Reference Range Interpretation [...] and its performance characteristics determined by the [facility] Path ology Department, Section of Molecular Pathology. It has not been cleared or approved by the U.S. Food and Drug Administration (FDA), since FDA approval is not required for clinical use of the test. Validation was done as required by The Clinical Laboratory Improvement Amendments of 1988.[id number] 15:29:00 Test Item Value Reference Range Interpretation Comments PHOSPHORUS (BEAKER) (test code = 3.5 mg/dL 2.3-4.7 604) [id number] 15:29:00 Test Item Value Reference Range Interpretation Comments MAGNESIUM (BEAKER) (test code = 2.1 mg/dL 1.6-2.6 627) [id number] 15:01:00 Test Item Value Reference Range Interpretation Comments PHOSPHORUS (BEAKER) (test code = 2.1 mg/dL 2.3-4.7 L 604) [id number] 15:01:00 Test Item Value Reference Range Interpretation Comments MAGNESIUM (BEAKER) (test code = 2.0 mg/dL 1.6-2.6 627) BASIC METABOLIC [id number] 15:01:00 Test Item Value Reference Range Interpretation [...] APPLICABLE FOR DIALYSIS PATIEN TS. Specimen slightly ictericPT/[id number] 14:53:00 Test Item Value Reference Range Interpretation [...] INR is2.5-3.5 for patients wiht mechanical heart valves.[id number] 14:38:00 Test Item Value Reference Range Interpretation Comments AMMONIA (BEAKER) (test code = 348) 34 mol/L 18-72 RUBELLA ANTIBODY, [id number] 14:20:00 Test Item Value Reference Range Interpretation Comments RUBELLA IGG QUANTITATION (BEAKER) 1.0 IU/mL <8.0 (test code = 572) Rubella IgG Result Interpretation: </= 7.0 IU/mL Negative - Presumed non- immune 8.0 - 9.9 IU/mL Equivocal >= 10.0 IU/mL Positive - Presumed immune VARICELLA ZOSTER ANTIBODY, [id number] 13:49:00 Test Item Value Reference Range Interpretation Comments VARICELLA ZOSTER IGG (AL) (BEAKER) 4.8 (test code = 3197) VARICELLA ZOSTER RESULT INTERPRETATIONS: <=0.8 Al Nonreactive: Presumed non-immune to VZV 0.9-1.0 Al Equivocal >=1.1 Al Reactive: Presumed immune to VZVCRYPTOCOCCAL [id number] 13:33:00 Test Item Value Reference Range Interpretation Comments CRYPTOCOCCAL ANTIGEN, SERUM Negative Negative, Interference (BEAKER) (test code = 1828) FACTOR 5 ACTIVITY (BLEEDING RISK)2019-10-08 13:03:00 Test Item Value Reference Range Interpretation Comments FACTOR V ACTIVITY (BEAKER) (test code = 9.0 % 60.0-150.0 L 665) CBC W/PLT COUNT & AUTO [id number] 12:13:00 Test Item Value Reference Range Interpretation [...] PERCENT (BEAKER) (test code = 2801) POCT-GLUCOSE [id number] 11:22:00 Test Item Value Reference Range Interpretation Comments POC-GLUCOSE METER 184 mg/dL 70-110 H : TESTED A T [facility] 6720 (BEAKER) (test code = [place], 1538) [address]: Assault Boat Coxswain/Techni theo ID = [id number] for Karely Bautista ANTI-NUCLEAR ANTIBODY (JOSE ARMANDO)2019-10-08 10:44:00 Test Item Value Reference Range Interpretation Comments ANTI-NUCLEAR ANTIBODY (JOSE ARMANDO) (BEAKER) Negative Negative (test code = 418) Test performed by IFA method.Test performed by IFA method.[id number] 09:26:00 Test Item Value Reference Range Interpretation Comments PHOSPHORUS (BEAKER) (test code = 2.9 mg/dL 2.3-4.7 604) [id number] 09:26:00 Test Item Value Reference Range Interpretation Comments MAGNESIUM (BEAKER) (test code = 2.0 mg/dL 1.6-2.6 627) BASIC METABOLIC [id number] 09:26:00 Test Item Value Reference Range Interpretation [...] Specimen slightly ictericRAD, CHEST, 1 VIEW, NON [id number] 09:14:00Reason for exam:->endotracheal intubationShould this be performed [...] MDReport Verified Date/Time: 10/08/2019 09:14:39 Reading Location: [facility] Radiology Reading Room D-DIMER 2019-10-08 06:25:00 [...] of thrombosis is within 95-100% range. PROTHROMBIN TIME/[id number] 05:32:00 Test Item Value Reference Range Interpretation [...] INR is2.5-3.5 for patients wiht mechanical heart valves.[id number] 05:32:00 Test Item Value Reference Range Interpretation Comments FIBRINOGEN LEVEL (BEAKER) (test 200 mg/dl 225-434 L code = 658) [id number] 05:32:00 Test Item Value Reference Range Interpretation [...] Specimen slightly ictericCBC W/PLT COUNT & AUTO [id number] 05:24:00 Test Item Value Reference Range Interpretation [...] (BEAKER) (test code = 2801) LACTIC ACID, [id number] 05:16:00 Test Item Value Reference Range Interpretation Comments LACTATE BLOOD VENOUS (2) (BEAKER) 1.8 mmol/L 0.5-2.2 (test code = 2872) [id number] 23:51:00 Test Item Value Reference Range Interpretation Comments PHOSPHORUS (BEAKER) (test code = 4.4 mg/dL 2.3-4.7 604) [id number] 23:51:00 Test Item Value Reference Range Interpretation Comments MAGNESIUM (BEAKER) (test code = 2.2 mg/dL 1.6-2.6 627) BASIC METABOLIC [id number] 23:51:00 Test Item Value Reference Range Interpretation [...] DIALYSIS PATIEN TS. Specimen slightly ictericBLOOD GAS, [id number] 23:37:00 Test Item Value Reference Range Interpretation [...] 50.0 % CBC W/PLT COUNT & AUTO [id number] 20:12:00 Test Item Value Reference Range Interpretation [...] PERCENT (BEAKER) (test code = 2801) POCT-GLUCOSE [id number] 20:01:00 Test Item Value Reference Range Interpretation Comments POC-GLUCOSE METER 143 mg/dL 70-110 H : TESTED A T [facility] 6720 (BEAKER) (test code = [facility] [employer] [facility], 1538) [address]: Assault Boat Coxswain/Techni theo ID = [id number] for Liban Arnett BLOOD GAS, [id number] 19:54:00 Test Item Value Reference Range Interpretation [...] (test code = 1819) 24.0 % POCT-GLUCOSE [id number] 19:01:00 Test Item Value Reference Range Interpretation Comments POC-GLUCOSE METER 155 mg/dL 70-110 H : TESTED A T [facility] 6720 (BEAKER) (test code = [facility] [employer] [place], 1538) [address]: Assault Boat Coxswain/Techni theo ID = [id number] for GIDEON NUNEZ HEPATOBILIARY [id number] 18:38:00Please do at bedside. Thank you.FINAL REPORT PROCEDURE: HEPATOBILIARY SCAN CPT CODE: 34914 INDICATION: abdominal pain PROTOCOL: 5.3 mCi of [...] JEFFERY ALARCON MD on 10/07/2019 06:38 PMPOCT-GLUCOSE [id number] 16:52:00 Test Item Value Reference Range Interpretation Comments POC-GLUCOSE METER 166 mg/dL 70-110 H : TESTED A T [facility] 6720 (BEAKER) (test code = DONTANAHED Dozier [facility], 1538) [address]: Assault Boat Coxswain/Techni theo ID = [id number] for GIDEON NUNEZ PT/[id number] 16:40:00 Test Item Value Reference Range Interpretation [...] INR is2.5-3.5 for patients wiht mechanical heart valves.[id number] 16:40:00 Test Item Value Reference Range Interpretation Comments FIBRINOGEN LEVEL (BEAKER) (test 156 mg/dl 225-434 L code = 658) PROTHROMBIN TIME/[id number] 16:39:00 Test Item Value Reference Range Interpretation [...] INR is2.5-3.5 for patients wiht mechanical heart valves.[id number] 16:36:00 Test Item Value Reference Range Interpretation Comments PHOSPHORUS (BEAKER) (test code = 1.8 mg/dL 2.3-4.7 L 604) [id number] 16:36:00 Test Item Value Reference Range Interpretation Comments MAGNESIUM (BEAKER) (test code = 2.5 mg/dL 1.6-2.6 627) BASIC METABOLIC [id number] 16:36:00 Test Item Value Reference Range Interpretation [...] APPLICABLE FOR DIALYSIS PATIEN TS. BLOOD GAS, [id number] 16:22:00 Test Item Value Reference Range Interpretation [...] 25.0 % CBC W/PLT COUNT & AUTO [id number] 12:44:00 Test Item Value Reference Range Interpretation [...] PERCENT (BEAKER) (test code = 2801) POCT-GLUCOSE [id number] 12:23:00 Test Item Value Reference Range Interpretation Comments POC-GLUCOSE METER 145 mg/dL 70-110 H : TESTED A T [facility] 6720 (BEAKER) (test code = [place], 1538) [address]: Assault Boat Coxswain/Techni theo ID = [id number] for GIDEON NUNEZ [id number] 12:06:00 Test Item Value Reference Range Interpretation Comments T4 TOTAL (BEAKER) (test code = 895) 4.6 ug/dL 4.9-11.7 L [id number] 10:00:00 Test Item Value Reference Range Interpretation Comments PHOSPHORUS (BEAKER) (test code = 2.8 mg/dL 2.3-4.7 604) [id number] 10:00:00 Test Item Value Reference Range Interpretation Comments MAGNESIUM (BEAKER) (test code = 2.0 mg/dL 1.6-2.6 627) BASIC METABOLIC [id number] 10:00:00 Test Item Value Reference Range Interpretation [...] NOT APPLICABLE FOR DIALYSIS PATIEN TS. POCT-GLUCOSE [id number] 08:15:00 Test Item Value Reference Range Interpretation Comments POC-GLUCOSE METER 174 mg/dL 70-110 H : TESTED A T [facility] 6720 (BEAKER) (test code = [place], 1538) [address]: Assault Boat Coxswain/Techni theo ID = [id number] for SA NDERS, GIDEON RAD, CHEST, 1 VIEW, NON [id number] 05:39:00Reason for exam:- >intubatedShould this be performed [...] MDReport Verified Date/Time: 10/07/2019 05:39:22 BLOOD GAS, [id number] 05:29:00 Test Item Value Reference Range Interpretation [...] (BEAKER) (test code = 1819) 40.0 % [id number] 05:07:00 Test Item Value Reference Range Interpretation [...] thrombosis is within 95-100% range. COMPREHENSIVE METABOLIC [id number] 04:59:00 Test Item Value Reference Range Interpretation [...] PATIEN TS. CBC W/PLT COUNT & AUTO [id number] 04:32:00 Test Item Value Reference Range Interpretation [...] H PERCENT (BEAKER) (test code = 2801) [id number] 04:30:00 Test Item Value Reference Range Interpretation Comments PHOSPHORUS (BEAKER) (test code = 3.1 mg/dL 2.3-4.7 604) [id number] 04:30:00 Test Item Value Reference Range Interpretation Comments MAGNESIUM (BEAKER) (test code = 1.8 mg/dL 1.6-2.6 627) POCT-GLUCOSE [id number] 04:25:00 Test Item Value Reference Range Interpretation Comments POC-GLUCOSE METER 126 mg/dL 70-110 H : TESTED A T [facility] 6720 (BEAKER) (test code = [place], 1538) [address]: Assault Boat Coxswain/Techni theo ID = [id number] for Liban Arnett [id number] 04:18:00 Test Item Value Reference Range Interpretation Comments FIBRINOGEN LEVEL (BEAKER) (test 173 mg/dl 225-434 L code = 658) [id number] 04:14:00 Test Item Value Reference Range Interpretation [...] for patients wiht mechanical heart valves.LACTIC ACID, [id number] 04:13:00 Test Item Value Reference Range Interpretation Comments LACTATE BLOOD VENOUS (2) (BEAKER) 1.2 mmol/L 0.5-2.2 (test code = 2872) POCT-GLUCOSE [id number] 01:33:00 Test Item Value Reference Range Interpretation Comments POC-GLUCOSE METER 103 mg/dL 70-110 : TESTED A T [facility] 6720 (BEAKER) (test code = [facility], 1538) [address]: Assault Boat Coxswain/Techni theo ID = [id number] for GISELE CUETO HEMOGLOBIN AND [id number] 00:27:00 Test Item Value Reference Range Interpretation Comments HEMOGLOBIN (BEAKER) (test code = 8.6 GM/DL 11.2-15.7 L 410) HEMATOCRIT (BEAKER) (test code = 26.2 % 34.1-44.9 L 411) POCT-GLUCOSE [id number] 22:58:00 Test Item Value Reference Range Interpretation Comments POC-GLUCOSE METER 146 mg/dL 70-110 H : TESTED A T [facility] 6720 (BEAKER) (test code = [employer] [facility], 1538) [address]: Assault Boat Coxswain/Techni theo ID = [id number] for GISELE CUETO RAD, CHEST, 1 VIEW, NON [id number] 21:37:00Reason for exam:->line placement, right IJShould this [...] APPLICABLE FOR DIALYSIS PATIEN TS. PROTEIN, RANDOM [id number] 19:50:00 Test Item Value Reference Range Interpretation Comments PROTEIN, URINE (BEAKER) (test code = 83 mg/dL 0-14 H 1569) CREATININE, RANDOM [id number] 19:28:00 Test Item Value Reference Range Interpretation Comments CREATININE URINE (BEAKER) (test 37.6 mg/dL code = 375) Reference Range: No [id number] 19:00:00 Test Item Value Reference Range Interpretation Comments MAGNESIUM (BEAKER) 2.0 mg/dL 1.6-2.6 Specimen slightly (test code = 627) hemolyzed [id number] 19:00:00 Test Item Value Reference Range Interpretation [...] 0-0 (test code = 413) LACTIC ACID, [id number] 18:55:00 Test Item Value Reference Range Interpretation Comments LACTATE BLOOD VENOUS 1.9 mmol/L 0.5-2.2 Specime n slightly (2) (BEAKER) (test hemolyzed code = 2872) VITAMIN B12 AND [id number] 18:36:00 Test Item Value Reference Range Interpretation Comments VITAMIN B12 (BEAKER) (test code = > pg/mL 213-816 H 774) FOLATE (BEAKER) (test code = 362) 17.3 ng/mL >=7.0 BLOOD GAS, [id number] 18:29:00 Test Item Value Reference Range Interpretation [...] code = 1819) 40.0 % BASIC METABOLIC [id number] 17:47:00 Test Item Value Reference Range Interpretation [...] NOT APPLICABLE FOR DIALYSIS PATIEN TS. POCT-GLUCOSE [id number] 17:39:00 Test Item Value Reference Range Interpretation Comments POC-GLUCOSE METER 188 mg/dL 70-110 H : TESTED A T [facility] 6720 (BEAKER) (test code = [place], 1538) [address]: Assault Boat Coxswain/Techni theo ID = [id number] for SA GIDEON LOPEZ LIPID [id number] 17:28:00 Test Item Value Reference Range Interpretation [...] Borderline 130-159 High 160-189 Very High >=190URIC [id number] 17:28:00 Test Item Value Reference Range Interpretation Comments URIC ACID (BEAKER) (test code = 7.3 mg/dL 2.6-7.2 H 773) HEMOGLOBIN [id number] 16:13:00 Test Item Value Reference Range Interpretation Comments HEMOGLOBIN A1C (BEAKER) (test code = 6.0 % 4.3-6.1 368) HEPATITIS A ANTIBODY, [id number] 16:13:00 Test Item Value Reference Range Interpretation Comments HEPATITIS A IGG ANTIBODY (BEAKER) Reactive Nonreactive A (test code = 2797) CARCINOEMBRYONIC ANTIGEN (CEA)2019-10-06 16:08:00 Test Item Value Reference Range Interpretation Comments CARCINOEMBRYONIC ANTIGEN (BEAKER) 23.1 ng/mL 0.0-5.0 H (test code = 685) VITAMIN D, [id number] 16:08:00 Test Item Value Reference Range Interpretation Comments VITAMIN D 25-OH (BEAKER) (test 10.1 ng/mL 6.6-49.9 code = 2764) Effective 09/07/2017: Reference Range ChangeNew: 6.6-49.9 ng/mL Previous: 13.0-47.8 ng/mLRecommended Vitamin D Target Range: 30.0-40.0 ng/mLTRANSFERRIN 2019-10-06 15:52:00 Test Item Value Reference Range Interpretation Comments TRANSFERRIN (BEAKER) (test code = 218 mg/dL 174-382 541) [id number] 15:09:00 Test Item Value Reference Range Interpretation Comments PHOSPHORUS EMILEE) (test code = 1.7 mg/dL 2.3-4.7 L 604) U/S, ABDOMINAL, WITH [id number] 15:01:00Reason for exam:->acute liver injury, ? cholecystitis, [...] MDReport Verified Date/Time: 10/06/2019 15:01:21 Reading Location: [facility] B1 [id number] Ortho Consult Reading Room PREGNANCY SCREEN, [id number] 14:58:00 Test Item Value Reference Range Interpretation Comments TEST URINE (BEAKER) (test Negative code = 583) POCT-GLUCOSE [id number] 12:44:00 Test Item Value Reference Range Interpretation Comments POC-GLUCOSE METER 156 mg/dL 70-110 H : TESTED A T BSC 6720 (BEAKER) (test code = [place], 1538) [address]: Assault Boat Coxswain/Techni theo ID = [id number] for BRIA NUNEZOE [id number] 12:39:00 Test Item Value Reference Range Interpretation Comments RPR SCREEN (BEAKER) (test code = Nonreactive Nonreactive 420) B-TYPE NATRIURETIC FACTOR (BNP)2019-10-06 11:57:00 Test Item Value Reference Range Interpretation Comments B-TYPE NATRIURETIC PEPTIDE 3996 pg/mL 0-100 H (BEAKER) (test code = 700) [id number] 11:51:00 Test Item Value Reference Range Interpretation Comments MAGNESIUM (BEAKER) (test code = 2.2 mg/dL 1.6-2.6 627) BLOOD GAS, [id number] 11:50:00 Test Item Value Reference Range Interpretation [...] code = 1819) 50.0 % RESPIRATORY PANEL [id number] 11:35:00 Test Item Value Reference Range Interpretation [...] This sample was tested at the [facility] Molecular Diagnostics Laboratory using the BioCision FilmArray Respiratory Panel. It is FDA cleared and has been verified and approved by the [facility] Molecular Diagnostics Laboratory for clinical use on nasopharyngeal swab specimens.The performance of the FilmArrayRP has not been established in individuals who received influenza vaccine. Recent administration ofa nasal influenza vaccine may cause false positive results for Influenza A and/orInfluenza B.RETICULOCYTE [id number] 11:32:00 Test Item Value Reference Range Interpretation Comments RETICULOCYTE COUNT PCT (SapheonAKER) (test 2.1 % 0.5-1.7 H code = 575) KETONE, [id number] 11:30:00 Test Item Value Reference Range Interpretation Comments KETONES, BLOOD (BEAKER) (test code 0.3 mmol/L <0.4 = 1103) LEGIONELLA ANTIGEN, [id number] 09:37:00 Test Item Value Reference Range Interpretation Comments L. PNEUMOPHILA Negative - see Negative fo r L. SEROGP 1 UR AG comment pneumophila (BEAKER) (test code serogrou p 1 antigen, = 1156) suggesting no r ecent or current infe ction with this serog roup. Legionellosis c annot be ruled out si nce other serogroup s and species may cau se disease. STREP PNEUMONIAE [id number] 09:37:00 Test Item Value Reference Range Interpretation Comments STREP PNEUMONIAE Presumptive negative Presumptive negative ANTIGEN (SapheonAKER) for pneumococcal for pneumococcal (test code = 1615) pneumonia - see pneumonia - see comment commen Presumptive negative for pneumococcal pneumonia, suggesting no current or recent pneumococcal infection. Infection due to S. pneumoniae cannot be ruled out since the antigen present in the sample may be below the detection limit of the test.POCT-GLUCOSE [id number] 08:45:00 Test Item Value Reference Range Interpretation Comments POC-GLUCOSE METER 119 mg/dL 70-110 H : TESTED A T [facility] 6720 (vushaper) (test code = [place], 1538) [address]: Assault Boat Coxswain/Techni theo ID = [id number] for SA NDERS, GIDEON RAD, CHEST, 1 VIEW, NON [id number] 08:37:00Post-intubationReason for exam:- >intubationShould this be performed [...] MDReport Verified Date/Time: 10/06/2019 08:37:13 Reading Location: [facility] C013X Ortho Consult Reading Room [id number] 07:44:00 Test Item Value Reference Range Interpretation Comments PROCALCITONIN (BEAKER) (test code 0.97 ng/mL <0.05 H = 3036) SEPSIS RISK (ng/mL)Low: 0.05-0.50Intermediate: 0.51-2.00High: >=2.01URINALYSIS W/ REFLEX URINE [id number] 07:15:00 Test Item Value Reference Range Interpretation [...] code = 2795) ALPHA FETOPROTEIN (AFP), TUMOR [id number] 06:49:00 Test Item Value Reference Range Interpretation Comments ALPHA-FETOPROTEIN (BEAKER) (test code < ng/mL <10.0 = 1094) For 1 occurencesHEPATITIS B SURFACE [id number] 06:49:00 Test Item Value Reference Range Interpretation Comments HEPATITIS B SURFACE ANTIBODY < mIU/mL <8.0 (BEAKER) (test code = 647) For 1 occurencesRAPID DRUG SCREEN, [id number] 06:33:00 Test Item Value Reference Range Interpretation [...] situations. Chain of custody not maintained. Some jtrk-ihm-uowmvyq medications, as well as adulterants, may cause inaccurate results. Clinical correlation should be applied. A more comprehensivedrug screen or confirmation of a detected drug may be performed upon request.CREATININE, RANDOM URINE 2019-10-06 06:30:00 Test Item Value Reference Range Interpretation Comments CREATININE URINE (BEAKER) (test 38.0 mg/dL code = 375) Reference Range: No NormalsSODIUM, RANDOM [id number] 06:30:00 Test Item Value Reference Range Interpretation Comments SODIUM URINE (BEAKER) (test code = 51 meq/L 243) Reference Range: No NormalsHEPATITIS B CORE ANTIBODY, [id number] 06:27:00 Test Item Value Reference Range Interpretation Comments HEPATITIS B CORE TOTAL ANTIBODY Nonreactive Nonreactive (BEAKER) (test code = 497) For 1 [id number] 05:50:00 Test Item Value Reference Range Interpretation Comments FERRITIN (BEAKER) (test code = 1588 ng/mL 5-275 H 361) For 1 occurencesACETAMINOPHEN [id number] 05:30:00 Test Item Value Reference Range Interpretation Comments ACETAMINOPHEN LEVEL (BEAKER) (test < ug/mL 10.0-30.0 L code = 344) Therapeutic Range: 10.0-30.0 g/mLToxic Levels: >200.0 g/mLFor 1 fwtflggjlwNBAFX-0-[id number] 05:20:00 Test Item Value Reference Range Interpretation Comments ALPHA-1 ANTITRYPSIN (BEAKER) 266.90 mg/dL 90.00-200.00 H (test code = 502) [id number] 05:17:00 Test Item Value Reference Range Interpretation Comments THYROID STIMULATING HORMONE 0.75 uIU/mL 0.35-4.94 (BEAKER) (test code = 772) HEPATITIS PANEL, [id number] 05:17:00 Test Item Value Reference Range Interpretation Comments HEPATITIS A IGM ANTIBODY (BEAKER) Nonreactive Nonreactive (test code = 498) HEPATITIS B CORE IGM ANTIBODY Nonreactive Nonreactive (BEAKER) (test code = 645) HEPATITIS C ANTIBODY (BEAKER) Nonreactive Nonreactive (test code = 367) HEPATITIS B SURFACE ANTIGEN (2) Nonreactive Nonreactive (BEAKER) (test code = 2585) HIV-1 ANTIGEN WITH HIV-1/2 [id number] 05:17:00 Test Item Value Reference Range Interpretation Comments HIV-1 ANTIGEN WITH HIV 1\T\2 Nonreactive Nonreactive ANTIBODY (2) (BEAKER) (test code = 2586) BASIC METABOLIC [id number] 05:09:00 Test Item Value Reference Range Interpretation [...] APPLICABLE FOR DIALYSIS PATIEN TS. HEPATIC FUNCTION [id number] 05:09:00 Test Item Value Reference Range Interpretation [...] code = > U/L 6-55 H 347) [id number] 05:07:00 Test Item Value Reference Range Interpretation Comments PHOSPHORUS (BEAKER) (test code = 3.6 mg/dL 2.3-4.7 604) [id number] 05:07:00 Test Item Value Reference Range Interpretation [...] H (test code = 364) LACTIC ACID, [id number] 04:58:00 Test Item Value Reference Range Interpretation Comments LACTATE BLOOD ARTERIAL (2) 1.5 mmol/L 0.5-2.2 (BEAKER) (test code = 2874) [id number] 04:56:00 Test Item Value Reference Range Interpretation Comments ETHANOL (BEAKER) (test code = 400) < mg/dL <=10 [id number] 04:54:00 Test Item Value Reference Range Interpretation [...] L (test code = 2590) BLOOD GAS, [id number] 04:53:00 Test Item Value Reference Range Interpretation [...] 30.0 % CBC W/PLT COUNT & AUTO [id number] 04:53:00 Test Item Value Reference Range Interpretation [...] PERCENT (BEAKER) (test code = 2801) CALCIUM, [id number] 04:51:00 Test Item Value Reference Range Interpretation Comments CALCIUM IONIZED (BEAKER) (test 1.12 mmol/L 1.12-1.27 code = 698) PH, BLOOD (BEAKER) (test code = 7.35 1810) PROTHROMBIN [id number] 04:43:00 Test Item Value Reference Range Interpretation [...] INR is2.5-3.5 for patients wiht mechanical heart valves.[id number] 04:43:00 Test Item Value Reference Range Interpretation Comments FIBRINOGEN LEVEL (BEAKER) (test 265 mg/dl 225-434 code = 658) [id number] 04:43:00 Test Item Value Reference Range Interpretation [...] for patients wiht mechanical heart valves.ACUTE HEPATITIS [id number] 06:15:00 Test Item Value Reference Range Interpretation [...] - 0.9 Positiv e: > 0.9 The [facility] rec ommends that a positive HCV antibody result be followed up wit h a HCV Nucleic Acid Amplification t est (816923).Perfor med At: HD [facility] [id number] [place], [place] [id number] kris Gould MD Ph:[phone] HIV 1 2 ANTIBODY [id number] 06:15:00 Test Item Value Reference Range Interpretation Comments AB HIV 1 2 (test code = NON REACTIVE SCREEN NONREACTIVE TKM62LE) AG HIV1 P24 (test code = NON REACTIVE P24 NONREACTIVE JBM7N07) - CT ABD PELVIS [id number] 12:57:00 Name: GINA MARIE [facility] : 1965 Age/S: 53 / F [address] Unit #: [id number] Loc: [place] [address] Phys: Bryna Orta MD Acct: [id number] Dis Date: Status: ADM IN PHONE #: [phone] Exam Date: 03/09/2019 1200 FAX #: Reason: abd pain EXAMS: CPT: [id number] CT ABD PELVIS W/CONT 68148 LOCATION: T18 EXAM: CT ABDOMEN AND PELVIS [...] CTDI: DLP: PAGE 1 Signed ReportBASI METABOLIC [id number] 07:37:00 Test Item Value Reference Range Interpretation [...] = CA) 8.7 MG/DL 8.5-10.1 N T4 [id number] 07:37:00 Test Item Value Reference Range Interpretation Comments T4 FREE (test code = T4F) 0.70 NG/DL 0.89-1.76 L THYROID STIMULATING [id number] 07:37:00 Test Item Value Reference Range Interpretation Comments THYROID STIMULATING HORMONE 1.540 mcIU/ML 0.340-4.820 N (test code = TSH) ACUTE HEPATITIS [id number] 07:33:00 Test Item Value Reference Range Interpretation Comments AB HEPATITIS A IGM (test code = HAVMAB) AG HEPATITIS B SURFACE (test code = SCREEN NEGATIVE HBSAG) AB HEPATITIS B CORE IGM (test code = HBCMAB) AB HEPATITIS C (test code = HCVAB) RATIO <0.8 HIV 1 2 ANTIBODY [id number] 07:33:00 Test Item Value Reference Range Interpretation Comments AB HIV 1 2 (test code = NON REACTIVE SCREEN NONREACTIVE NZM10TJ) AG HIV1 P24 (test code = NON REACTIVE P24 NONREACTIVE AKI9K31) GLYCOSYLATED HEMOGLOBIN [id number] 07:26:00 Test Item Value Reference Range Interpretation Comments GLYCOSYLATED HEMOGLOBIN (HA1C) 5.8 % A1C 4.2-6.3 N (test code = GLYHGB) ESTIMATED AVERAGE GLUCOSE (test 120 MG/DLest code = EAG) CBC W/AUTO [id number] 07:21:00 Test Item Value Reference Range Interpretation [...] DIFF/SCN CRITERIA MDIFF) - CT HEAD/BRAIN W/O [id number] 19:39:00 [facility] [place] 1965 Age/S: 53 / F [address] [facility] [address] Unit #: [id number] Loc: [place] [address] Phys: Maria Morel MD Acct: [id number] Dis Date: Status: ADM IN PHONE #: [phone] Exam Date: 03/08/2019 8351 FAX #: Reason: near syn cope EXAMS: CPT: [id number] CT HEAD/BRAIN W/O CONT 08850 CT head History: near syncope Comparison: None [...] PAGE 1 Signed ReportDRUGS OF ABUSE SCREEN [id number] 19:12:00 Test Item Value Reference Range Interpretation [...] NEGATIVE SCcutoff <300 NG/ML [place]) COMPREHENSIVE METABOLIC [id number] 17:26:00 Test Item Value Reference Range Interpretation [...] 45-117 N TOTAL (test code = ALKP) [id number] 17:26:00 Test Item Value Reference Range Interpretation Comments MAGNESIUM (test code = MAG) 1.9 MG/DL 1.8-2.4 N [id number] 17:26:00 Test Item Value Reference Range Interpretation Comments ALCOHOL (test code = ALC) < 3 MG/DL 0-10 N COMPREHENSIVE METABOLIC [id number] 17:21:00 Test Item Value Reference Range Interpretation [...] TOTAL (test Unit/L 45-117 code = ALKP) [id number] 17:21:00 Test Item Value Reference Range Interpretation Comments MAGNESIUM (test code = MAG) MG/DL 1.8-2.4 [id number] 17:21:00 Test Item Value Reference Range Interpretation Comments ALCOHOL (test code = ALC) MG/DL 0-10 CBC W/AUTO [id number] 17:08:00 Test Item Value Reference Range Interpretation [...] DIFF/SCN CRITERIA MDIFF) - XR CHEST 1 [id number] 16:33:00 Name: GINA MARIE [place] : 1965 Age/S: 53 / F [address] Unit #: [id number] Loc: [place] [address] Phys: Maria Morel MD Acct: [id number] Dis Date: Status: PRE ER PHONE #: [phone] Exam Date: 03/08/2019 6854 FAX #: Reason: near syncope EXAMS: CPT: [id number] XR CHEST 1 V 94719 Fluoro Time: DAP (Gy m2): Air Kerma [...] PAGE 1 Signed Report Name: GINA MARIE [facility] : 1965 Age/S: 53 / F [address] Unit #: [id number] Loc: [place] [address] Phys: Maria Morel MD Acct: [id number] Dis Date: Status: PRE ER PHONE #: [phone] Exam Date: 03/08/2019 1620 FAX #: Reason: near syncope EXAMS: CPT: [id number] XR CHEST 1 V 89707 Fluoro Time: DAP (Gy m2): Air Kerma (mGy): <Continued>Technologist: Nanette Gordon RT(R)(CT) Trnscb Date/Time: 03/08/2019 (9784) [email or web address].[email or web address] Orig Print D/T: S: 03/08/2019 (4036) PAGE 2 Signed Report
[2021-10-30] MEDS ORDERED: ONDANSETRON 4 MG/2 ML VIAL ONE (15:23)
[2021-10-30] MEDS ORDERED: MORPHINE 4 MG/ML SYR ONE ×2 (15:23→17:42)
--- NOTE | 2021-10-30 15:48 | RAD REPORT ---
EXAM DESCRIPTION: RAD - Chest Single View - 10/30/2021 3:24 pm CLINICAL HISTORY: CHEST PAIN COMPARISON: Portable April 02 TECHNIQUE: AP portable chest image was obtained 10/30/2021 3:24 pm . FINDINGS: Fibrotic lung pattern is present matching comparison. This could mask edema and infiltrate . No mass or consolidations seen. Heart and vasculature are normal. No measurable pleural effusion and no pneumothorax. No acute bony abnormality seen. No acute aortic findings suspected. IMPRESSION: No acute cardiopulmonary process. Baseline fibrotic lung pattern can mask early edema or infiltrate.
[2021-10-30 15:59] LABS: Absolute Lymphocytes (CBC) 2.8 K/uL (0.7-4.9); Basophils % 0.4 % (0-1.3); Hematocrit 35.9 % (36.0-45.0); Lymphocytes % 20.3 % (15.3-44.8); MPV 7.2 fL (7.6-11.3); RBC Red Blood Cell Count 5.03 M/uL (3.86-4.86)
[2021-10-30 16:02] LABS: Protime INR 0.9
[2021-10-30 16:18] LABS: ALT/SGPT 22 U/L (12-78); AST/SGOT 16 U/L (15-37); Albumin 3.5 g/dL (3.4-5.0); Alkaline Phosphatase 120 U/L (45-117); BUN Blood Urea Nitrogen 7 mg/dL (7-18); Bicarbonate 21 mmol/L (21-32); Bilirubin Direct 0.1 mg/dL (0-0.2); Bilirubin Total 0.2 mg/dL (0.2-1.0); Glucose Level 108 mg/dL (74-106); Magnesium 2.4 mg/dL (1.8-2.4); NT PRO-BNP 199 pg/mL (<125); Potassium 3.6 mmol/L (3.5-5.1); Protein, Total 7.5 g/dL (6.4-8.2); Sodium Level 140 mmol/L (136-145); Troponin (Emerg Dept Use Only) < 0.02 ng/mL (0.0-0.045)
[2021-10-30] MEDS ORDERED: cloNIDine HCL 0.1 MG TAB ONE ×2 (17:26→18:23)
--- NOTE | 2021-10-30 17:46 | ER ---
Nurse's Notes [facility] Name: Pratibha Jennings Age: 56 yrs Sex: Female : 1965 Arrival Date: 10/30/2021 Time: 13:56 Bed 8 Private MD: Joseph Rouse T Diagnosis: Elevated blood pressure;Opioid withdrawal Presentation: 10/30 14:11 Chief complaint: Patient states: High BP and fast HR today (206/110, HR 118). ll1 Withdrawing from opioids (out early). Has seen Dr. Carmichael for this recently. Coronavirus screen: Vaccine status: Patient reports receiving the 2nd dose of the covid vaccine. Client denies travel out of the [place] in the last 14 days. At this time, the client does not indicate any symptoms associated with coronavirus-19. Ebola Screen: Patient denies travel to an Ebola-affected area in the 21 days before illness onset. Initial Sepsis Screen: Does the patient meet any 2 criteria? HR > 90 bpm. No. Patient's initial sepsis screen is negative. Does the patient have a suspected source of infection? No. Patient's initial sepsis screen is negative. Risk Assessment: Do you want to hurt yourself or someone else? Patient reports no desire to harm self or others. Onset of symptoms was October 30, 2021. 14:11 Method Of Arrival: Wheelchair ll1 14:11 Acuity: NUSRAT 2 ll1 Historical: - Allergies: 14:13 Latex, Natural Rubber; ll1 14:13 Iodine; topical; ll1 - PMHx: 14:13 Degenerative disc disease; Hypertension; Chronic pain; Back pain; Hyperlipidemia; ll1 ADD/ADHD; - PSHx: 14:13 Disc removal; Left clavicle; Left wrist surgery; Left knee replacement; Spinal surgery; ll1 Right knee replacement; - Immunization history:: Client reports receiving the 2nd dose of the Covid vaccine. - Social history:: Smoking status: Patient reports the use of cigarette tobacco products, smokes one-half pack cigarettes per day. Screenin:22 Abuse screen: Denies threats or abuse. Nutritional screening: No deficits noted. tw2 Tuberculosis screening: No symptoms or risk factors identified. Fall Risk None identified. Assessment: 14:20 General: Appears in no apparent distress. Behavior is anxious. Pain: Complains of pain tw2 in back and chest. Pain: Pain radiates to left arm. Neuro: Level of Consciousness is awake, alert, obeys commands, Oriented to person, place, time, situation. Cardiovascular: Reports chest pain, Patient's skin is warm and dry. Respiratory: Airway is patent Respiratory effort is even, unlabored, Respiratory pattern is regular, symmetrical. GI: No signs and/or symptoms were reported involving the gastrointestinal system. Musculoskeletal: Range of motion: intact in all extremities. 15:03 Reassessment: provider at bedside at this time. tw2 17:28 Reassessment: pt states "i want to talk to the provider about some other treatments tw2 like suboxone or something to help with the withdrawals", provider notified. 17:36 Reassessment: No changes from previously documented assessment. Patient and/or family tw2 updated on plan of care and expected duration. Pain level reassessed. Patient is alert, oriented x 3, equal unlabored respirations, skin warm/dry/pink. 18:49 Reassessment: Patient appears in no apparent distress at this time. No changes from tw2 previously documented assessment. Patient and/or family updated on plan of care and expected duration. Pain level reassessed. Patient is alert, oriented x 3, equal unlabored respirations, skin warm/dry/pink. Vital Signs: 14:11 BP 162 / 114; Pulse 109; Resp 18; Temp 98.0; Pulse Ox 98% ; Weight 49.9 kg; Height 5 ll1 ft. 4 in. (162.56 cm); Pain 9/10; 14:30 BP 186 / 97; Pulse 104; Resp 23; Pulse Ox 100% on R/A; tw2 15:30 BP 189 / 112; Pulse 102; Resp 12; Pulse Ox 100% on R/A; tw2 16:19 BP 177 / 92; Pulse 94; Resp 17; Pulse Ox 98% on R/A; tw2 17:34 BP 168 / 107; Pulse 89; Resp 19; Pulse Ox 98% on R/A; tw2 18:18 BP 166 / 110 (man/); tw2 18:40 BP 174 / 95; Pulse 83; Resp 10; Pulse Ox 98% on R/A; tw2 14:11 Body Mass Index 18.88 (49.90 kg, 162.56 cm) ll1 ED Course: 13:56 Patient arrived in ED. as 13:57 Von Chaves MD is Private Physician. as 13:57 Joseph Rouse MD is Private Physician. as 14:13 Triage completed. ll1 14:13 Arm band placed on Patient placed in an exam room, on a stretcher. ll1 14:14 Bed in low position. Call light in reach. environmental monitoring specialist on. Pulse ox on. NIBP on. tw2 14:17 Humphrey Simmons PA is PHCP. [facility] 14:17 Rigoberto Carmichael MD is Attending Physician. jm 14:22 Mayra Dailey, ANGELA is Primary Nurse. tw2 14:22 Patient maintains SpO2 saturation greater than 95% on room air. tw2 14:30 EKG done, by ED staff, reviewed by Humphrey DOWLING. gd 15:24 XRAY Chest (1 view) In Process Unspecified. EDMS 16:02 Inserted saline lock: 20 gauge in right hand, using aseptic technique. Missed jl7 attempt(s): 20 gauge in right antecubital area. 17:44 Joseph Rouse MD is Referral Physician. [facility] 18:18 No provider procedures requiring assistance completed. tw2 18:31 Awaiting: change in blood pressure PRIOR to discharge. tw2 18:49 IV discontinued, intact, bleeding controlled, No redness/swelling at site. Pressure tw2 dressing applied. Administered Medications: 16:01 Drug: morphine 4 mg Route: IVP; Site: right hand; jl7 17:27 Follow up: Response: No adverse reaction; Marked relief of symptoms ll3 16:01 Drug: Zofran (Ondansetron) 4 mg Route: IVP; Site: right hand; jl7 17:27 Follow up: Response: No adverse reaction ll3 17:28 Drug: cloNIDine 0.1 mg Route: PO; tw2 18:26 Follow up: Response: No adverse reaction; Blood pressure is unchanged tw2 17:48 Drug: morphine 4 mg {Note: RASS 0.} Route: IVP; Site: right wrist; tw2 18:27 Follow up: Response: No adverse reaction; Pain is decreased; RASS: Alert and Calm (0) tw2 18:26 Drug: cloNIDine 0.1 mg Route: PO; tw2 18:40 Follow up: Response: No adverse reaction; Blood pressure is lowered tw2 Outcome: 17:46 Discharge ordered by MD. wilhelm 18:49 Discharged to home via wheelchair, with significant other. tw2 18:49 Condition: stable 18:49 Discharge instructions given to patient, significant other, Instructed on discharge instructions, follow up and referral plans. no drinking with medication, no driving heavy equipment, medication usage, safety practices, Demonstrated understanding of instructions, follow-up care, medications, Prescriptions given X 2. 18:49 Patient left the ED. tw2 Signatures: Dispatcher [employer] EDMS Humphrey Simmons PA PA jmm Martinez, Amelia as Wise, Tara, RN RN tw2 Courtney Prieto RN RN jl7 Dania Broderick RN RN ll1 Get Dunn Lynsea RN RN ll3 Corrections: (The following items were deleted from the chart) 14:19 14:11 Chief complaint: Patient states: High BP and fast HR today (206/110, HR 118). ll1 Withdrawing from opioids (out early). Has seen Dr. Carmichael again for this. ll1
--- NOTE | 2021-10-30 17:47 | EDPHYS ---
Physician Documentation [facility] Name: Pratibha Jennings Age: 56 yrs Sex: Female : 1965 Arrival Date: 10/30/2021 Time: 13:56 Bed 8 Private MD: Joseph Rouse T ED Physician Rigoberto Carmichael HPI: 10/30 17:42 This 56 yrs old Female presents to ER via Wheelchair with complaints of High Blood jmm Pressure, Irregular Pulse, Chest Pain, Arm Pain. 17:42 Onset: The symptoms/episode began/occurred 2 week(s) ago. Modifying factors: The jmm symptoms are aggravated by activity, The symptoms are alleviated by. Associated signs and symptoms:. 6-year-old female with history of chronic pain, hypertension the presents emerged part with complaints of generalized body ache, elevated blood pressure since running out of pain medication. Patient states she had a fall approximately 3 weeks ago and took more of her prescribed opioids then indicated.. Historical: - Allergies: 14:13 Latex, Natural Rubber; ll1 14:13 Iodine; topical; ll1 - PMHx: 14:13 Degenerative disc disease; Hypertension; Chronic pain; Back pain; Hyperlipidemia; ll1 ADD/ADHD; - PSHx: 14:13 Disc removal; Left clavicle; Left wrist surgery; Left knee replacement; Spinal surgery; ll1 Right knee replacement; - Immunization history:: Client reports receiving the 2nd dose of the Covid vaccine. - Social history:: Smoking status: Patient reports the use of cigarette tobacco products, smokes one-half pack cigarettes per day. ROS: 17:42 Constitutional: Negative for fever, chills, and weight loss. jmm 17:42 Cardiovascular: Positive for chest pain. 17:42 Cardiovascular: Positive for palpitations. 17:42 MS/extremity: Positive for pain. 17:42 All other systems are negative. Exam: 17:42 Constitutional: This is a well developed, well nourished patient who is awake, alert, jmm and in no acute distress. Head/Face: atraumatic. Eyes: EOMI, no conjunctival erythema appreciated ENT: Moist Mucus Membranes Neck: Trachea midline, Supple Chest/axilla: Normal chest wall appearance and motion. Cardiovascular: Regular rate and rhythm. No edema appreciated Respiratory: Normal respirations, no respiratory distress appreciated Abdomen/GI: Non distended, soft Back: Normal ROM Skin: General appearance color normal MS/ Extremity: Moves all extremities, no obvious deformities appreciated, no edema noted to the lower extremities Neuro: Awake and alert, normal gait Psych: Behavior is normal, Mood is normal, Patient is cooperative and pleasant Vital Signs: 14:11 BP 162 / 114; Pulse 109; Resp 18; Temp 98.0; Pulse Ox 98% ; Weight 49.9 kg; Height 5 ll1 ft. 4 in. (162.56 cm); Pain 9/10; 14:30 BP 186 / 97; Pulse 104; Resp 23; Pulse Ox 100% on R/A; tw2 15:30 BP 189 / 112; Pulse 102; Resp 12; Pulse Ox 100% on R/A; tw2 16:19 BP 177 / 92; Pulse 94; Resp 17; Pulse Ox 98% on R/A; tw2 17:34 BP 168 / 107; Pulse 89; Resp 19; Pulse Ox 98% on R/A; tw2 18:18 BP 166 / 110 (man/); tw2 18:40 BP 174 / 95; Pulse 83; Resp 10; Pulse Ox 98% on R/A; tw2 14:11 Body Mass Index 18.88 (49.90 kg, 162.56 cm) ll1 MDM: 15:07 Patient medically screened. melonie 17:44 Data reviewed: vital signs, nurses notes. Counseling: I had a detailed discussion with melonie the patient and/or guardian regarding: the historical points, exam findings, and any diagnostic results supporting the discharge/admit diagnosis, the need for outpatient follow up, to return to the emergency department if symptoms worsen or persist or if there are any questions or concerns that arise at home. ED course: Patient is alert nontoxic in appearance in the ED. Patient states feeling much better. Labs unremarkable. Patient advised to follow-up with pain management for further evaluation otherwise given strict return precautions. Patient understood and agrees plan of care.. 10/30 15:07 Order name: Basic Metabolic Panel; Complete Time: 16:23 [facility] 10/30 15:07 Order name: CBC with Diff; Complete Time: 16:06 [facility] 10/30 15:07 Order name: LFT's; Complete Time: 16:23 [facility] 10/30 15:07 Order name: Magnesium; Complete Time: 16:23 [facility] 10/30 15:07 Order name: NT PRO-BNP; Complete Time: 16:23 [facility] 10/30 15:07 Order name: PT-INR; Complete Time: 16:06 [facility] 10/30 14:40 Order name: EKG; Complete Time: 14:40 tw2 10/30 15:07 Order name: Troponin (emerg Dept Use Only); Complete Time: 16:23 [facility] 10/30 15:07 Order name: XRAY Chest (1 view); Complete Time: 15:49 [facility] 10/30 14:40 Order name: EKG - Nurse/Tech; Complete Time: 14:40 tw2 10/30 15:07 Order name: Cardiac monitoring; Complete Time: 15:20 [facility] 10/30 15:07 Order name: IV Saline Lock; Complete Time: 15:20 [facility] 10/30 15:07 Order name: Labs collected and sent; Complete Time: 17:40 [facility] 10/30 15:07 Order name: O2 Per Protocol; Complete Time: 15:20 [facility] 10/30 15:07 Order name: O2 Sat Monitoring; Complete Time: 15:20 jm Administered Medications: 16:01 Drug: morphine 4 mg Route: IVP; Site: right hand; jl7 17:27 Follow up: Response: No adverse reaction; Marked relief of symptoms ll3 16:01 Drug: Zofran (Ondansetron) 4 mg Route: IVP; Site: right hand; jl7 17:27 Follow up: Response: No adverse reaction ll3 17:28 Drug: cloNIDine 0.1 mg Route: PO; tw2 18:26 Follow up: Response: No adverse reaction; Blood pressure is unchanged tw2 17:48 Drug: morphine 4 mg {Note: RASS 0.} Route: IVP; Site: right wrist; tw2 18:27 Follow up: Response: No adverse reaction; Pain is decreased; RASS: Alert and Calm (0) tw2 18:26 Drug: cloNIDine 0.1 mg Route: PO; tw2 18:40 Follow up: Response: No adverse reaction; Blood pressure is lowered tw2 Disposition: 10/31 07:04 Co-signature as Attending Physician, Rigoberto Carmichael MD I agree with the assessment and rn plan of care. Attestation: The patient's history, exam findings, diagnostics, and a summary of any interventions or procedures was reviewed in detail with Humphrey DOWLING. Disposition Summary: 10/30/21 17:46 Discharge Ordered Location: Home [facility] Condition: Stable [facility] Diagnosis - Elevated blood pressure [facility] - Opioid withdrawal [facility] Followup: [facility] - With: Joseph Rouse MD - When: 1 - 2 days - Reason: Recheck today's complaints, Continuance of care, Re-evaluation by your physician Discharge Instructions: - Discharge Summary Sheet [facility] - Opioid Withdrawal [facility] - Opioid Withdrawal Treatment [facility] Forms: - Medication Reconciliation Form [facility] - Thank You Letter [facility] - Antibiotic Education [facility] - Prescription Opioid Use [facility] Prescriptions: - clonidine HCl 0.1 mg Oral tablet - take 1 tablet by ORAL route 3 times per day; 30 tablet; Refills: 0, Product [facility] Selection Permitted - orphenadrine citrate 100 mg Oral Tablet Sustained Release - take 1 tablet by ORAL route 2 times per day As needed; 20 tablet; Refills: 0, [facility] Product Selection Permitted Signatures: Dispatcher [employer] EDHumphrey Mcclendon PA PA [facility] Rigoberto Carmichael MD MD rn Wise, Tara RN RN tw2 Courtney Prieto RN RN jl7 Dania Broderick RN RN ll1 Jackie Richards RN ll3
[2021-10-30 19:03] VITALS: TEMP 98
[2021-10-30 19:07] VITALS: O2SAT 98
[2021-10-30 19:10] VITALS: BP 174/95
--- NOTE | 2021-10-31 12:37 | EKG ---
Test Date: 2021-10-30 Test Time: 14:28:16 Spa Therapist: WARD MEASUREMENT RESULTS: Intervals: Rate: 98 FL: 122 QRSD: 74 QT: 366 QTc: 467 [place]: P: 66 FL: 122 QRS: 75 T: 76 INTERPRETIVE STATEMENTS: Normal sinus rhythm Minimal voltage criteria for LVH, may be normal variant ST abnormality, possible digitalis effect Abnormal ECG Compared to ECG 10/07/2021 12:13:22 ST (T wave) deviation now present Electronically Signed On 10-31-21 12:35:37 CONVEYOR BELT OPERATOR by Edil Grace
== END 2021-10-30 18:49 | disposition home or self-care (01) ==
LOC: ER 13:55
DX: F11.23 Opioid dependence with withdrawal (principal); I15.8 Other secondary hypertension; T40.2X5A Adverse effect of other opioids, initial encounter; Y92.009 Unspecified place in unspecified non-institutional (private) residence as the place of occurrence of the external cause; I10 Essential (primary) hypertension; Z91.040 Latex allergy status; Z96.652 Presence of left artificial knee joint; Z96.651 Presence of right artificial knee joint
CPT/HCPCS: 93005; 85025; 80048; 36415; 83735; 85610; 80076; 84484; 83880; 71045; 99285; J2405

== ENCOUNTER 2022-06-03 10:00 | Emergency (ER) | payer BC, OTHER ==
[2022-06-03 11:20] LABS: Absolute Lymphocytes (CBC) 1.1 K/uL (0.7-4.9); Lymphocytes % 8.9 % (15.3-44.8); MCV 74.2 fL (80-100); MPV 7.4 fL (7.6-11.3); RBC Red Blood Cell Count 4.99 M/uL (3.86-4.86)
[2022-06-03] MEDS ORDERED: PROMETHAZINE INJ 25 MG/ML AMP ONE (12:40)
[2022-06-03 13:16] LABS: Albumin 3.3 g/dL (3.4-5.0); Bilirubin Total 0.4 mg/dL (0.2-1.0); Potassium 3.8 mmol/L (3.5-5.1); Protein, Total 7.5 g/dL (6.4-8.2)
--- NOTE | 2022-06-03 14:07 | RAD REPORT ---
EXAM DESCRIPTION: CT - Abdomen Pelvis W Contrast - 06/03/2022 1:43 pm CLINICAL HISTORY: Abdominal pain COMPARISON: 2015 TECHNIQUE: Computed axial tomography of the abdomen pelvis was obtained. 100 cc Isovue-300 was admin istered intravenously. Oral contrast was not requested which limits evaluation of bowel and appendix All CT scans are performed using dose optimization technique as appropriate and may include automated exposure control or mA/KV adjustment according to patient size. FINDINGS: Moderate hiatal hernia Subcentimeter hepatic cyst. Spleen, pancreas, adrenals and kidneys unremarkable The rectum is mildly distended with stool. Large amount of stool throughout colon. Bladder is distended. Atherosclerotic disease. Chronic appearing interstitial lung opacities IMPRESSION: Large amount stool throughout colon
[2022-06-03] MEDS ORDERED: ONDANSETRON 4 MG/2 ML VIAL ONE (14:40)
[2022-06-03] MEDS ORDERED: NA CHLORIDE 0.9% 100 ML ONE (14:40)
[2022-06-03] MEDS ORDERED: KETAMINE HCL 500 MG/5 ML VIAL ONE (14:40)
[2022-06-03 14:44] LABS: Urine Blood Trace-lysed (Negative); Urine Glucose Negative (Negative); Urine Protein 2+ (Negative); Urine Specific Gravity 1.015 (1.005-1.030); Urine pH 7.5 (5.0-7.0)
[2022-06-03 15:25] LABS: Urine Amorphous Sediment 3+ /HPF (NONE SEEN); Urine Bacteria <20 /HPF (<20); Urine RBC <5 /HPF (NONE SEEN)
--- NOTE | 2022-06-03 15:53 | EDPHYS ---
Physician Documentation [facility] Name: Pratibha Jennings Age: 56 yrs Sex: Female : 1965 Arrival Date: 06/03/2022 Time: 10:01 Bed 14 Private MD: ED Physician Melvin Jay HPI: 06/03 15:26 This 56 yrs old Female presents to ER via Ambulatory with complaints of Constipation. ms3 15:26 The patient presents with Constipation, rectal pain. Onset: The symptoms/episode ms3 began/occurred suddenly, this morning. The symptoms do not radiate. Associated signs and symptoms: Pertinent positives: constipation, Pertinent negatives: nausea, vomiting, and diarrhea. The symptoms are described as crampy. Modifying factors: The symptoms are alleviated by nothing, the symptoms are aggravated by nothing. Severity of pain: At its worst the pain was severe in the emergency department the pain is unchanged. Historical: - Allergies: 10:15 Iodine; topical; ss 10:15 Latex, Natural Rubber; ss - PMHx: 10:15 ADD/ADHD; Back pain; Chronic pain; Degenerative disc disease; Hyperlipidemia; ss Hypertension; - PSHx: 10:15 Disc removal; Left wrist surgery; Left knee replacement; Right knee replacement; Left ss clavicle; Spinal surgery; - Immunization history:: Adult Immunizations up to date, Client reports receiving the 2nd dose of the Covid vaccine. - Social history:: Smoking status: Patient denies any tobacco usage or history of. ROS: 15:26 Constitutional: Negative for fever, and chills. Neck: Negative for injury, pain, and ms3 swelling, Cardiovascular: Negative for chest pain, and palpitations. Respiratory: Negative for shortness of breath, cough, wheezing, and pleuritic chest pain. 15:26 Skin: Negative for injury, rash, and discoloration, Hematologic/Lymphatic: Negative for swollen nodes, abnormal bleeding, and unusual bruising. 15:26 Abdomen/GI: Positive for constipation, rectal pain. 15:26 All other systems are negative. Exam: 15:26 Constitutional: This is a well developed, well nourished patient who is awake, alert, ms3 and in no acute distress. Head/Face: Normocephalic, atraumatic. Chest/axilla: Normal chest wall appearance and motion. Nontender with no deformity. Cardiovascular: Regular rate and rhythm with a normal S1 and S2. No gallops, murmurs, or rubs. Normal PMI, no JVD. No pulse deficits. Respiratory: Lungs have equal breath sounds bilaterally, clear to auscultation and percussion. No rales, rhonchi or wheezes noted. No increased work of breathing, no retractions or nasal flaring. Abdomen/GI: Soft, non-tender, with normal bowel sounds. No distension or tympany. No guarding or rebound. No evidence of tenderness throughout. Skin: Warm, dry with normal turgor. Normal color with no rashes, no lesions, and no evidence of cellulitis. Vital Signs: 10:14 Resp 22; Weight 48.99 kg; Height 5 ft. 4 in. (162.56 cm); Pain 10/10; ss 10:16 BP 163 / 82; Pulse 70; Temp 97.8(TE); Pulse Ox 100% ; ap3 11:46 BP 169 / 98; Pulse 90; Pulse Ox 100% ; ap3 13:19 BP 176 / 94; Pulse 89; Resp 18; Pulse Ox 97% on R/A; ld1 14:21 BP 158 / 85; Pulse 86; Resp 18; Pulse Ox 99% on R/A; ld1 10:14 Body Mass Index 18.54 (48.99 kg, 162.56 cm) ss MDM: 10:31 Patient medically screened. ms3 15:26 Differential diagnosis: bowel obstruction, urinary tract infection, Constipation. ms3 15:53 Data reviewed: vital signs, nurses notes, lab test result(s), radiologic studies, and ms3 as a result, I will discharge patient. Counseling: I had a detailed discussion with the patient and/or guardian regarding: the historical points, exam findings, and any diagnostic results supporting the discharge/admit diagnosis, lab results, radiology results, the need for outpatient follow up, to return to the emergency department if symptoms worsen or persist or if there are any questions or concerns that arise at home. ED course: Digital disimpaction performed and soap suds enema inserted. Patient with large BM after enema. Discussed labs, CT, and PE findings with patient. Patient to follow up with PMD in 2-3 days. Patient understands/ agrees with plan. All questions answered. Return precautions discussed to include worsening symptoms, or any other concerns. On re-evaluation patient is improved, A/O x4, nad, non-toxic, ambulatory in ED, speaking full sentences. . 06/03 10:31 Order name: CBC with Diff; Complete Time: 12:31 ms3 06/03 10:31 Order name: CMP; Complete Time: 13:42 ms3 06/03 10:31 Order name: Lipase; Complete Time: 13:42 ms3 06/03 10:31 Order name: Urine Microscopic Only; Complete Time: 15:26 ms3 06/03 10:31 Order name: CT Abd/Pelvis - IV Contrast Only; Complete Time: 14:22 ms3 06/03 14:44 Order name: Urine Dipstick-Ancillary; Complete Time: 15:26 EDMS 06/03 10:31 Order name: IV Saline Lock; Complete Time: 11:15 ms3 06/03 10:31 Order name: Labs collected and sent; Complete Time: 11:15 ms3 06/03 10:31 Order name: Urine Dipstick-Ancillary (obtain specimen); Complete Time: 15:46 ms3 06/03 11:36 Order name: Labs - recollect needed: green top hemolyzed; Complete Time: 12:29 3 06/03 14:24 Order name: Misc. Order: Soap suds enema; Complete Time: 15:45 ms3 Administered Medications: 11:15 Drug: Zofran (Ondansetron) 4 mg Route: IVP; Site: right forearm; ap3 12:39 Drug: Phenergan (promethazine) 12.5 mg Route: IM; Site: left deltoid; ld1 14:38 Drug: Ketamine 10 mg Route: IVP; Site: right antecubital; ld1 14:38 Drug: Zofran (Ondansetron) 4 mg Route: IVP; Site: right antecubital; ld1 Disposition Summary: 06/03/22 15:53 Discharge Ordered Location: Home ms3 Condition: Stable ms3 Diagnosis - Constipation ms3 - Abdominal pain, Generalized ms3 - Rectal pain ms3 Followup: ms3 - With: Riley Ruvalcaba, DO - When: 2 - 3 days - Reason: Recheck today's complaints Discharge Instructions: - Discharge Summary Sheet ms3 - Abdominal Pain, Adult ms3 - Constipation, Adult ms3 Forms: - Medication Reconciliation Form ms3 - Thank You Letter ms3 - Antibiotic Education ms3 - Prescription Opioid Use ms3 Signatures: Dispatcher [employer] Gaby Bragg RN RN Mesha Lara 3 Felicia Wu RN RN ap3 Melvin Jay DO DO ms3 Layne White RN RN ld1
--- NOTE | 2022-06-03 15:53 | ER ---
Nurse's Notes [facility] Name: Pratibha Jennings Age: 56 yrs Sex: Female : 1965 Arrival Date: 06/03/2022 Time: 10:01 Bed 14 Private MD: Diagnosis: Constipation;Abdominal pain, Generalized;Rectal pain Presentation: 06/03 10:14 Chief complaint: Patient states: Rectal pain and constipation that began this morning. ss Family member reports that he tried Dulcolax and Fleet enema with little results. Coronavirus screen: Client denies travel out of the [place] in the last 14 days. Ebola Screen: Patient denies exposure to infectious person. Patient denies travel to an Ebola-affected area in the 21 days before illness onset. Initial Sepsis Screen: Does the patient have a suspected source of infection? No. Patient's initial sepsis screen is negative. Initial Sepsis Screen: Does the patient meet any 2 criteria? No. Patient's initial sepsis screen is negative. Risk Assessment: Do you want to hurt yourself or someone else? Patient reports no desire to harm self or others. Onset of symptoms was June 03, 2022. 10:14 Method Of Arrival: Ambulatory ss 10:14 Acuity: NUSRAT 3 ss Triage Assessment: 11:16 General: Appears uncomfortable, Behavior is restless. Pain: Complains of pain in ap3 buttocks and abdomen Pain currently is 10 out of 10 on a pain scale. Neuro: Level of Consciousness is awake, alert, obeys commands, Oriented to person, place, time, situation, Appropriate for age. Cardiovascular: Patient's skin is warm and dry. Respiratory: Airway is patent Respiratory effort is even, unlabored, Respiratory pattern is regular, symmetrical. GI: Reports constipation. Historical: - Allergies: 10:15 Iodine; topical; ss 10:15 Latex, Natural Rubber; ss - PMHx: 10:15 ADD/ADHD; Back pain; Chronic pain; Degenerative disc disease; Hyperlipidemia; ss Hypertension; - PSHx: 10:15 Disc removal; Left wrist surgery; Left knee replacement; Right knee replacement; Left ss clavicle; Spinal surgery; - Immunization history:: Adult Immunizations up to date, Client reports receiving the 2nd dose of the Covid vaccine. - Social history:: Smoking status: Patient denies any tobacco usage or history of. Screenin:16 Abuse screen: Denies threats or abuse. Nutritional screening: No deficits noted. ap3 Tuberculosis screening: No symptoms or risk factors identified. Fall Risk None identified. Assessment: 11:17 GI: Bowel sounds present X 4 quads. Abd is soft in abdomen diffusely. ap3 11:46 Reassessment: Patient and/or family updated on plan of care and expected duration. Pain ap3 level reassessed. Patient is alert, oriented x 3, equal unlabored respirations, skin warm/dry/pink. patients is at the bedside. 15:52 Reassessment: Pt complaining of abdominal pain. ERP at bedside assessing pt and ld1 providing care. Pt received two soap suds enemas. Pt reports minimal relief. Vital Signs: 10:14 Resp 22; Weight 48.99 kg; Height 5 ft. 4 in. (162.56 cm); Pain 10/10; ss 10:16 BP 163 / 82; Pulse 70; Temp 97.8(TE); Pulse Ox 100% ; ap3 11:46 BP 169 / 98; Pulse 90; Pulse Ox 100% ; ap3 13:19 BP 176 / 94; Pulse 89; Resp 18; Pulse Ox 97% on R/A; ld1 14:21 BP 158 / 85; Pulse 86; Resp 18; Pulse Ox 99% on R/A; ld1 10:14 Body Mass Index 18.54 (48.99 kg, 162.56 cm) ss ED Course: 10:01 Patient arrived in ED. as 10:07 Melvin Jay DO is Attending Physician. ms3 10:15 Triage completed. ss 10:15 Arm band placed on right wrist. ss 10:29 Felicia Wu, RN is Primary Nurse. ap3 10:29 ED physician to see patient. ap3 11:11 Inserted saline lock: 22 gauge in right forearm, using aseptic technique. Blood ap3 collected. 11:17 Patient has correct armband on for positive identification. Placed in gown. Bed in low ap3 position. Call light in reach. Side rails up X2. Adult w/ patient. Pulse ox on. NIBP on. Door closed. Noise minimized. 13:45 CT Abd/Pelvis - IV Contrast Only In Process Unspecified. EDMS 15:52 Riley Ruvalcaba DO is Referral Physician. ms3 16:09 No provider procedures requiring assistance completed. IV discontinued, intact, ld1 bleeding controlled, No redness/swelling at site. Administered Medications: 11:15 Drug: Zofran (Ondansetron) 4 mg Route: IVP; Site: right forearm; ap3 12:39 Drug: Phenergan (promethazine) 12.5 mg Route: IM; Site: left deltoid; ld1 14:38 Drug: Ketamine 10 mg Route: IVP; Site: right antecubital; ld1 14:38 Drug: Zofran (Ondansetron) 4 mg Route: IVP; Site: right antecubital; ld1 Medication: 16:10 VIS not applicable for this client. ld1 Outcome: 15:53 Discharge ordered by MD. ms3 16:10 Discharged to home via wheelchair. ld1 16:10 Condition: stable 16:10 Discharge instructions given to patient, family, Instructed on discharge instructions, follow up and referral plans. Demonstrated understanding of instructions, follow-up care. 16:10 Patient left the ED. ld1 Signatures: Dispatcher [employer] Loraine Turner Shelby, RN RN ss Felicia Wu RN RN ap3 Melvin Jay DO DO ms3 Layne White, RN RN ld1
[2022-06-03 16:31] VITALS: TEMP 97.8
[2022-06-03 16:37] VITALS: BP 158/85; O2SAT 99
== END 2022-06-03 16:10 | disposition home or self-care (01) ==
LOC: ER 10:00
DX: K59.00 Constipation, unspecified (principal); R10.84 Generalized abdominal pain; K62.89 Other specified diseases of anus and rectum; I10 Essential (primary) hypertension; Z91.040 Latex allergy status; Z91.048 Other nonmedicinal substance allergy status
CPT/HCPCS: 85025; 36415; 83690; 80053; 74177; Q9967; J2550; J2405; 81003; 81015

== ENCOUNTER 2022-09-15 17:28 | Inpatient (IN) | payer OTHER ==
--- OUTSIDE RECORDS SUMMARY | 2022-09-15 17:37 | XMS REPORT | Continuity of Care Document ---
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 pain. tiZANidine 2018-11 Yes 4mg Q8H Take 4 mg [facility] (ZANAFLEX) 2-[address] 4 MG tablet 11:46: every 8 Hos rene 13 (eight) l hours as needed for muscle spasms. ondansetron 2018-11 Yes 4mg Q8H Take 4 mg M ethodi ODT 2-[address] (ZOFRAN-ODT 11:46: every 8 Hos rene ) 4 MG 13 (eight) l disintegrat hours as ing tablet needed for nausea or vomiting. zolpidem 2018-11 Yes 5mg QD Take 5 mg [facility] (AMBIEN) 5 2-[address] MG tablet 11:46: nightly as [facility] spita 13 needed for l sleep. gabapentin 2018-11 Yes 600mg Q.[id number] Take 600 [facility] (NEURONTIN) 2-10 [id number] mg by s t 600 mg 11:46: 3D mouth 3 Hospita tablet 13 (three) l times a day. morPHINE 2018-11 Yes 15mg Q12H Take 15 mg [facility] (MSIR) 15 2-[address] MG tablet 11:46: every 12 [facility] 13 (twelve) l hours as needed for severe pain. oxyCODone 2018-11 Yes 10mg Q6H Take 10 mg [facility] (ROXICODONE 2-[address] ) 10 MG 11:46: every 6 Hospita tablet 13 (six) l hours as needed for moderate pain. tiZANidine 2018-11 Yes 4mg Q8H Take 4 mg [facility] (ZANAFLEX) 2-[address] 4 MG tablet 11:46: every 8 Hos rene 13 (eight) l hours as needed for muscle spasms. ondansetron 2018-11 Yes 4mg Q8H Take 4 mg M ethodi ODT 2-[address] (ZOFRAN-ODT 11:46: every 8 Hos rene ) 4 MG 13 (eight) l disintegrat hours as ing tablet needed for nausea or vomiting. pentoxifyll 2018-11 Yes [facility] ine [facility] (TRENTal) 00:00: Hospita 400 mg CR 00 l tablet pentoxifyll 2018-11 Yes [facility] (TRENTal) 00:00: Hospita 400 mg CR 00 l tablet pentoxifyll 2018-11 Yes [facility] (TRENTal) 00:00: Hospita 400 mg CR 00 l tablet atorvastati 2018-11 Yes 20mg QD Take [address] [facility] (LIPITOR) 1-29 tablet (20 Ebony kes 20 MG 00:00: mg total) Medical tablet 00 by mouth Center nightly At bedtime. atorvastati 2018-11 Yes 20mg QD Take [address] [facility] (LIPITOR) 1-29 tablet (20 Ebony kes 20 MG 00:00: mg total) Medical tablet 00 by mouth Center nightly At bedtime. tiZANidine 2018-11 Yes muscle 4mg Take [address] [facility] (ZANAFLEX) 1-18 spasm by mouth Luke s 4 MG tablet 17:29: every 8 Med ical 52 (eight) Center hours as needed. morphine 2018-11 Yes 15mg Take [address] [facility] (MS CONTIN) -18 by mouth Luke s 15 MG 12 hr 17:29: every 12 Me dical tablet 52 (twelve) Center hours. lidocaine 2018-11 Yes 3{patch Q24H Place [address] [facility] [address] [facility] (LIDODERM) 1-18 } patches [facility] 5 % patch 17:29: onto the Medi [facility] 52 skin daily Center 12 hours on 12 hours off . gabapentin 2018-11 Yes 600mg Q.[id number] Take [address] [facility] (NEURONTIN) 1-18 [id number] mg by L ukes 600 MG 17:29: 3D mouth 3 Medical tablet 52 (three) Center times daily. zolpidem 2018-11 Yes 5mg QD Take [address] [facility] (AMBIEN) 5 1-18 by mouth [facility] MG tablet 17:29: nightly Medic al 52 Every Center night at bedtime . propranolol 2018-11 Yes 1{tbl} QD Take [address] -hydrochlor 1-18 tablet by Kimberly rockwell othiazide 17:29: mouth Medical (INDERIDE) [address] 40-25 mg not listed per tablet on patient medication sheet . amLODIPine 2018-11 Yes 5mg QD Take [address] [facility] (NORVASC) 5 1-18 by mouth Luke [facility] MG tablet 17:29: every Medical 52 morning. Center dexlansopra 2018-11 Yes 60mg QD Take [address] [facility] zole 60 mg 1-18 by mouth [facility] capsule 17:29: daily. Medical 52 Center topiramate 2018-11 Yes 25mg Q.5D Take [address] (TOPAMAX) 1-18 by mouth 2 Luke [facility] 25 MG 17:29: (two) Medical tablet 52 times Center daily. sucralfate 2018-11 Yes 1g Q.25D Take [address] [facility] [address] [facility] (CARAFATE) 1-18 by mouth 4 Kimberly es 1 gram 17:29: (four) Medical tablet 52 times Center daily. FLUoxetine 2018-11 Yes 20mg QD Take [address] (PROZAC) 20 1-18 by mouth Luke [facility] MG tablet 17:29: daily. Medica l 52 Center hydrOXYzine 2018-11 Yes 25mg Q.5D Take [address] [facility] (ATARAX) 25 1-18 by mouth 2 Ebony kes MG tablet 17:29: (two) Medical 52 times Center daily. tiZANidine 2018-11 Yes muscle 4mg Take [address] [facility] (ZANAFLEX) 1-18 spasm by mouth Luke s 4 MG tablet 17:29: every 8 Med ical 52 (eight) Center hours as needed. morphine 2018-11 Yes 15mg Take [address] [facility] (MS CONTIN) 1-18 by mouth Luke s 15 MG 12 hr 17:29: every 12 Me dical tablet 52 (twelve) Center hours. lidocaine 2018-11 Yes 3{patch Q24H Place [address] (LIDODERM) 1-18 } patches [facility] 5 % patch 17:29: onto the Medi [facility]ie 52 skin daily Center 12 hours on 12 hours off . gabapentin 2018-11 Yes 600mg Q.[id number] Take [address] [address] (NEURONTIN) 1-18 [id number] mg by L ukes 600 MG 17:29: 3D mouth 3 Medical tablet 52 (three) Center times daily. zolpidem 2018-11 Yes 5mg QD Take [address] [facility] (AMBIEN) 5 1-18 by mouth [facility] MG tablet 17:29: nightly Medic al 52 Every Center night at bedtime . propranolol 2018-11 Yes 1{tbl} QD Take [address] -hydrochlor 1-18 tablet by Kimberly es othiazide 17:29: mouth Medical (INDERIDE) [address] 40-25 mg not listed per tablet on patient medication sheet . amLODIPine 2018-11 Yes 5mg QD Take [address] (NORVASC) 5 1-18 by mouth Luke s MG tablet 17:29: every Medical 52 morning. [place] dexlansopra 2018-11 Yes 60mg QD Take [address] [facility] zole 60 mg 1-18 by mouth [facility] capsule 17:29: daily. Medical 52 Center topiramate 2018-11 Yes 25mg Q.5D Take [address] (TOPAMAX) 1-18 by mouth 2 Luke [facility] 25 MG 17:29: (two) Medical tablet 52 times Center daily. sucralfate 2018-11 Yes 1g Q.25D Take [address] [facility] [address] [facility] (CARAFATE) 1-18 by mouth 4 Kimberly es 1 gram 17:29: (four) Medical tablet 52 times Center daily. FLUoxetine 2018-11 Yes 20mg QD Take [address] (PROZAC) 20 1-18 by mouth Luke [facility] MG tablet 17:29: daily. Medica l 52 Center hydrOXYzine 2018-11 Yes 25mg Q.5D Take [address] [facility] (ATARAX) 25 1-18 by mouth 2 Ebony kes MG tablet 17:29: (two) Medical 52 times Center daily. lactulose 2018-11 Yes 20g Q.5D Take 30 [facility] (CHRONULAC) 1-18 mLs (20 g Kimberly es 20 gram/30 00:00: total) by Me dical mL solution 00 mouth 2 Cente r (two) times daily. lactulose 2018-11 Yes 20g Q.5D Take 30 [facility] (CHRONULAC) 1-18 mLs (20 g Kimberly es 20 gram/30 00:00: total) by Me dical mL solution 00 mouth 2 Cente r (two) times daily. buPROPion 2018-11 Yes 300mg QD Take 300 [facility] XL 0-[address] (WELLBUTRIN 00:00: mouth Hospi ta XL) 300 MG 00 daily. l 24 hr tablet buPROPion 2018-11 Yes 300mg QD Take 300 [facility] XL 0-[address] (WELLBUTRIN 00:00: mouth Hospi ta XL) 300 MG 00 daily. l 24 hr tablet buPROPion 2018-11 Yes 300mg QD Take 300 [facility] XL 0-[address] (WELLBUTRIN 00:00: mouth Hospi ta XL) 300 MG 00 daily. l 24 hr tablet olopatadine 2018-11 Yes INT 1 GTT [facility] (PATANOL) 0-[address] 0.1 % 00:00: PRF Hospita ophthalmic 00 ITCHING l solution olopatadine 2018-11 Yes INT 1 GTT [facility] (PATANOL) 0-[address] 0.1 % 00:00: PRF Hospita ophthalmic ITCHING l solution olopatadine 2018-11 Yes INT 1 GTT [facility] (PATANOL) 0-[address] 0.1 % 00:00: PRF Hospita ophthalmic ITCHING l solution FLUoxetine 2018-11 Yes 40mg QD Take 40 mg M [facility]i (PROzac) 40 0-[address] MG capsule 00:00: daily. Hospi ta l FLUoxetine 2018-11 Yes 40mg QD Take 40 mg M [facility]i (PROzac) 40 0-[address] MG capsule 00:00: daily. Hospi ta l FLUoxetine 2018-11 Yes 40mg QD Take 40 mg M [facility]i (PROzac) 40 0-[address] MG capsule 00:00: daily. Hospi ta l amLODIPine 2018-11 Yes 5mg Take 5 mg [facility] (NORVASC) 5 0-[address] mg tablet 00:00: as needed. Ho spita l amLODIPine 2018-11 Yes 5mg Take 5 mg [facility] (NORVASC) 5 0-[address] mg tablet 00:00: as needed. Ho spita l amLODIPine 2018-11 Yes 5mg Take 5 mg [facility] (NORVASC) 5 0-[address] mg tablet 00:00: as needed. Ho spita l topiramate 2018-11 Yes 25 mg = 1 Me moria 25 MG Oral 0-23 tab, PO, l Tablet 18:40: BID, # 60 Reece n [Topamax] 02 tab, 2 Refill(s), Pharmacy: [facility] #[id number] topiramate 2018- Yes 25 mg = 1 Me moria 25 MG Oral 0-23 tab, PO, l Tablet 18:40: BID, # 60 Reece n [Topamax] 02 tab, 2 Refill(s), [id number] topiramate 2018- Yes 25 mg = 1 Me moria 25 MG Oral 0-23 tab, PO, l Tablet 18:40: BID, # 60 Reece n [Topamax] 02 tab, 2 Refill(s), Pharmacy: [facility] #[id number] topiramate 2019-0 Yes 25 mg = 1 Me moria 25 MG Oral 8-21 tab, PO, l Tablet 15:45: Bedtime, # Mary nn [Topamax] 00 30 tab, 2 Refill(s), Pharmacy: [facility]ORE #[id number] topiramate 20190 Yes 25 mg = 1 Me moria 25 MG Oral 8-21 tab, PO, l Tablet 15:45: Bedtime, # Mary nn [Topamax] 00 30 tab, 2 Refill(s), Pharmacy: [facility] #[id number] topiramate 0 Yes 25 mg = 1 Me moria 25 MG Oral 8-21 tab, PO, l Tablet 15:45: Bedtime, # Mary nn [Topamax] 00 30 tab, 2 Refill(s), Pharmacy: [facility] #[id number] atorvastati 2018-0 Yes PO, Daily, Memoria n 8-21 0 l 15:28: Refill(s) atorvastati 2018-0 Yes PO, Daily, Memoria n 8-21 0 l 15:28: Refill(s) Amlodipine 2019-0 Yes PO, Daily, M emoria 8-21 0 l 15:28: Refill(s) amLODIPine 2019-0 Yes PO, Daily, M emoria 8-21 0 l 15:28: Refill(s) Amlodipine 2018-0 Yes PO, Daily, M emoria 8-21 0 l 15:28: Refill(s) atorvastati 2019-0 Yes PO, Daily, Memoria n 8- 0 l 15:28: Refill(s) Amlodipine 2019-0 Yes PO, Daily, M emoria 8 0 l 15:28: Refill(s) amLODIPine 2019-0 Yes PO, Daily, M emoria 8 0 l 15:28: Refill(s) gabapentin Yes 600 mg, Rao caity 8 PO, TID, 0 l 15:00: Refill(s) Ambien Yes 5 mg, PO, Memori a 07-18 Bedtime, 0 l 15:00: Refill(s) Lidocaine Yes See Memoria 07-18 Instructio l 15:00: ns, 5 % Transderma l q12, 0 Refill(s) Protonix Yes 40 mg, PO, Mem oria 07-18 Daily, 0 l 15:00: Refill(s) Ondansetron Yes 4 mg = 1 Me moria 4 MG Oral 07-18 tab, PO, l Tablet 15:00: Q8H, 0 [Zofran] Refill(s) Hydroxyzine Yes 25 mg = 1 M emoria 07-18 tab, PO, l 15:00: Q6H, PRN rash / allergy symptoms, 0 Refill(s) Fluoxetine Yes 60 mg, PO, M emoria 07-18 Daily, 0 l 15:00: Refill(s) gabapentin Yes 600 mg, Rao caity 8- PO, TID, 0 l 15:00: Refill(s) Ambien Yes 5 mg, PO, Memori a 07-18 Bedtime, 0 l 15:00: Refill(s) lidocaine Yes See Memoria 07-18 Instructio l 15:00: ns, 5 % Transderma l q12, 0 Refill(s) Protonix Yes 40 mg, PO, Mem oria 8 Daily, 0 l 15:00: Refill(s) Zofran 4 mg 2019- Yes 4 mg = 1 Me moria oral tablet 8-21 tab, PO, l 15:00: Q8H, 0 Refill(s) hydrOXYzine 20190 Yes 25 mg = 1 M emoria 8-21 tab, PO, l 15:00: Q6H, PRN rash / allergy symptoms, 0 Refill(s) FLUoxetine 20190 Yes 60 mg, PO, M emoria 8-21 Daily, 0 l 15:00: Refill(s) Zanaflex 20190 Yes 4 mg, PO, Rao caity 8- Q8H, 0 l 15:00: Refill(s) oxyCODONE Yes 10 mg = 1 Mem oria 10 mg oral 8-21 tab, PO, l tablet, 15:00: Q6H, 0 Refill(s) release Zanaflex 0 Yes 4 mg, PO, Rao caity 8- Q8H, 0 l 15:00: Refill(s) oxyCODONE Yes 10 mg = 1 Mem oria 10 mg oral 8-21 tab, PO, l tablet, 15:00: Q6H, 0 immediate Refill(s) release gabapentin 0 Yes 600 mg, Rao caity 8-21 PO, TID, 0 l 15:00: Refill(s) gabapentin 0 Yes 600 mg, Rao caity 8-21 PO, TID, 0 l 15:00: Refill(s) Ambien 0 Yes 5 mg, PO, Memori a 8-21 Bedtime, 0 l 15:00: Refill(s) Lidocaine 2019-0 Yes See Memoria 8-21 Instructio l 15:00: ns, 5 % Transderma l q12, 0 Refill(s) Protonix 2018-0 Yes 40 mg, PO, Mem oria 8-21 Daily, 0 l 15:00: Refill(s) Ambien 2018-0 Yes 5 mg, PO, Memori a 8-21 Bedtime, 0 l 15:00: Refill(s) Ondansetron 0 Yes 4 mg = 1 Me moria 4 MG Oral 07-18 tab, PO, l Tablet 15:00: Q8H, 0 [Zofran] Refill(s) Hydroxyzine 2019 Yes 25 mg = 1 M emoria 07-18 tab, PO, l 15:00: Q6H, PRN rash / allergy symptoms, 0 Refill(s) Fluoxetine 2019 Yes 60 mg, PO, M emoria 07-18 Daily, 0 l 15:00: Refill(s) gabapentin 2019-0 Yes 600 mg, Rao caity 07-18 PO, TID, 0 l 15:00: Refill(s) Ambien 20190 Yes 5 mg, PO, Memori a 07-18 Bedtime, 0 l 15:00: Refill(s) lidocaine 0 Yes See Memoria 07-18 Instructio l 15:00: ns, 5 % Transderma l q12, 0 Refill(s) Protonix 20190 Yes 40 mg, PO, Mem oria 07-18 Daily, 0 l 15:00: Refill(s) Zofran 4 mg 2019 Yes 4 mg = 1 Me moria oral tablet 07-18 tab, PO, l 15:00: Q8H, 0 Refill(s) hydrOXYzine Yes 25 mg = 1 M emoria 07-18 tab, PO, l 15:00: Q6H, PRN rash / allergy symptoms, 0 Refill(s) FLUoxetine Yes 60 mg, PO, M emoria 07-18 Daily, 0 l 15:00: Refill(s) Zanaflex 20190 Yes 4 mg, PO, Roa caity 07-18 Q8H, 0 l 15:00: Refill(s) oxyCODONE 20190 Yes 10 mg = 1 Mem oria 10 mg oral 07-18 tab, PO, l tablet, 15:00: Q6H, 0 Refill(s) release Lidocaine 2018-0 Yes See Memoria 07-18 Instructio l 15:00: ns, 5 % Transderma l q12, 0 Refill(s) Protonix 20190 Yes 40 mg, PO, Mem oria 8-21 Daily, 0 l 15:00: Refill(s) Ondansetron 2018- Yes 4 mg = 1 Me moria 4 MG Oral 8-21 tab, PO, l Tablet 15:00: Q8H, 0 [Zofran] Refill(s) Hydroxyzine 0 Yes 25 mg = 1 M emoria 8-21 tab, PO, l 15:00: Q6H, PRN rash / allergy symptoms, 0 Refill(s) Fluoxetine Yes 60 mg, PO, M emoria 8-21 Daily, 0 l 15:00: Refill(s) atorvastati 2017- Yes 1{tbl} Q.5D Take 1 Me [facility]odi n (LIPITOR) 2-[address] 20 MG 00:00: mouth 2 Hospita tablet 00 (two) l times a day. atorvastati 2017- Yes 1{tbl} Q.5D Take 1 [facility] n (LIPITOR) 2-[address] 20 MG 00:00: mouth 2 Hospita tablet 00 (two) l times a day. atorvastati 2017-0 Yes 1{tbl} Q.5D Take 1 [facility] n (LIPITOR) 2-[address] 20 MG 00:00: mouth 2 Hospita tablet 00 (two) l times a day. pantoprazol 2017- Yes 1{tbl} QD Take 1 Me thodi e 2-[address] (PROTONIX) 00:00: mouth Hospit a 40 MG EC 00 daily. l tablet pantoprazol 2017-0 Yes 1{tbl} QD Take 1 Me thodi e 2-[address] (PROTONIX) 00:00: mouth Hospit a 40 MG EC 00 daily. l tablet pantoprazol 2018-0 Yes 1{tbl} QD Take 1 Me thodi e 2-[address] (PROTONIX) 00:00: mouth Hospit a 40 MG EC 00 daily. l tablet Immunizations Ordered Filled Immunization Date Status Comments [facility] e Immunization Name Name [id number] 2021-04-06 Completed Memor alana [facility]-1273vaxMODERNA< 00:00:00 sup>1</sup> [id number] 2021-04-06 Completed Memor ial [place] RNA-1273vaxMODERNA< 00:00:00 sup>1</sup> [id number] 2021-04-06 Completed Memor ial [place] RNA-1273vaxMODERNA< 00:00:00 sup>1</sup> SARS-COV-2 COVID-19 2021-04-06 Completed Unive rsity of MODERNA VACCINE 00:00:00 [place] [facility] SARS-COV-2 COVID-19 2021-04-06 Completed Unive rsity of MODERNA VACCINE 00:00:00 [place] [facility] SARS-COV-2 COVID-19 2021-04-06 Completed Unive rsity of MODERNA VACCINE 00:00:00 [place] [facility] SARS-COV-2 COVID-19 2021-04-06 Completed Unive rsity of MODERNA 12+ YRS 00:00:00 [place] [facility] VACCINE Branch SARS-COV-2 COVID-19 2021-04-06 Completed Unive rsity of MODERNA VACCINE 00:00:00 [place] [facility] SARS-COV-2 COVID-19 2021-04-06 Completed Unive rsity of MODERNA VACCINE 00:00:00 [place] [facility] SARS-COV-2 COVID-19 2021-04-06 Completed Unive rsity of MODERNA VACCINE 00:00:00 [place] [facility] SARS-COV-2 COVID-19 2021-03-12 Completed Unive rsity of MODERNA VACCINE 00:00:00 [place] [facility] SARS-COV-2 COVID-19 2021-03-12 Completed Unive rsity of MODERNA VACCINE 00:00:00 [place] [facility] SARS-COV-2 COVID-19 2021-03-12 Completed Unive rsity of MODERNA VACCINE 00:00:00 [place] [facility] SARS-COV-2 COVID-19 2021-03-12 Completed Unive rsity of MODERNA VACCINE 00:00:00 [place] [facility] SARS-COV-2 COVID-19 2021-03-12 Completed Unive rsity of MODERNA 12+ YRS 00:00:00 [facility] ical VACCINE Branch SARS-COV-2 COVID-19 2021-03-12 Completed Unive rsity of MODERNA VACCINE 00:00:00 [facility] ical Branch SARS-COV-2 COVID-19 2021-03-12 Completed Unive rsity of MODERNA VACCINE 00:00:00 [facility] Branch Influenza Virus 2020-11-28 Completed Universit y of Vaccine (3+ yrs) 00:00:00 [facility] dical Branch Influenza Virus 2020-11-28 Completed Universit y of Vaccine (3+ yrs) 00:00:00 [facility] dicpr Branch Influenza Virus 2020-11-28 Completed Universit y of Vaccine (3+ yrs) 00:00:00 [facility] dical Branch Influenza Virus 2020-11-28 Completed Universit y of Vaccine (3+ yrs) 00:00:00 [facility] dicpr Branch Influenza Virus 2020-11-28 Completed Universit y of Vaccine (3+ yrs) 00:00:00 [facility] dicpr Branch Influenza Virus 2020-11-28 Completed Universit y of Vaccine (3+ yrs) 00:00:00 [facility] dicpr Branch Influenza Virus 2020-11-28 Completed Universit y of Vaccine (3+ yrs) 00:00:00 [facility] Branch FLUCELVAX QUAD PF 2017-10-[address] 00:00:00 Hospital Pneumococcal 2017-10-06 Completed [facility] Con[facility] 13-Valent 00:00:00 Hospi iqra FLUCELVAX QUAD PF 2017-10-[address] 00:00:00 Hospital Pneumococcal 2017-10-06 Completed [facility] Conjugate 13-Valent 00:00:00 Hospi iqra FLUCELVAX QUAD PF 2017-10-[address] 00:00:00 Hospital Pneumococcal 2017-10-06 Completed [facility] 2017-10-06 Completed Universit y of Vaccine Quad IM, 00:00:00 [facility] Preserv and ABX Branch Free 2-64 YRS Pneumococcal 13 2017-10-06 Completed Universit y of Conjugate, PCV13 00:00:00 [facility] (Prevnar 13) [place] Influenza Virus 2017-10-06 Completed Universit y of Vaccine Quad IM, 00:00:00 [place] [facility] Preserv and ABX Branch Free 2-64 YRS Pneumococcal 13 2017-10-06 Completed Universit y of Conjugate, PCV13 00:00:00 [place] [facility] (Prevnar 13) Branch Influenza Virus 2017-10-06 Completed Universit y of Vaccine Quad IM, 00:00:00 [place] [facility] Preserv and ABX Branch Free 6 MO-64 YRS Pneumococcal 13 2017-10-06 Completed Universit y of Conjugate, PCV13 00:00:00 [place] [facility] (Prevnar 13) Branch Influenza Virus 2017-10-06 Completed Universit y of Vaccine Quad IM, 00:00:00 [place] [facility] Preserv and ABX Branch Free 6 MO-64 YRS Pneumococcal 13 2017-10-06 Completed Universit y of Conjugate, PCV13 00:00:00 [facility] dical (Prevnar 13) Branch Influenza Virus 2017-10-06 Completed Universit y of Vaccine Quad IM, 00:00:00 [place] [facility] Preserv and ABX Branch Free 2-64 YRS Pneumococcal 13 2017-10-06 Completed Universit y of Conjugate, PCV13 00:00:00 [facility] dical (Prevnar 13) Branch Influenza Virus 2017-10-06 Completed Universit y of Vaccine Quad IM, 00:00:00 [place] [facility] Preserv and ABX Branch Free 2-64 YRS Pneumococcal 13 2017-10-06 Completed Universit y of Conjugate, PCV13 00:00:00 [facility] dical (Prevnar 13) Branch Influenza Virus 2017-10-06 Completed Universit y of Vaccine Quad IM, 00:00:00 [facility] dical Preserv and ABX Branch Free 2-64 YRS Pneumococcal 13 2017-10-06 Completed Universit y of Conjugate, PCV13 00:00:00 [facility] dical (Prevnar 13) Branch Vital Signs Vital Name Observation Time Observation Value Comments Source Systolic blood 2021-08-14 15:39:00 130 mm[Hg] Univer sity of pressure [facility] Diastolic blood 2021-08-14 15:39:00 81 mm[Hg] Unive rsity of pressure [facility] Heart rate 2021-08-14 15:39:00 76 /min [facility] Body temperature 2021-08-14 15:39:00 [facility] Res[facility] 2021-08-14 15:39:00 18 /min [facility] Body height 2021-08-14 15:39:00 162.6 cm [facility] Body weight 2021-08-14 15:39:00 53.933 kg [facility] BMI 2021-08-14 15:39:00 20.41 kg/m2 [facility] Oxygen saturation in 2021-08-14 15:39:00 100 /min [facility] Arterial blood by [facility] Pulse oximetry Branch Systolic (mm Hg) 2022-09-07 19:49:00 Rao rial [facility] Diastolic (mm Hg) 2022-09-07 19:49:00 Mem orial [facility] [place] Heart Rate 2022-09-07 19:49:00 [facility] [place] Height 2022-09-07 19:49:00 5 [ft_i] [facility] [place] Weight 2022-09-07 19:49:00 [facility] [place] BMI Calculated 2022-09-07 19:49:00 Memori al [facility] [place] Systolic (mm Hg) 2022-01-06 15:19:00 Rao rial [place] Diastolic (mm Hg) 2022-01-06 15:19:00 Mem orial [place] Heart Rate 2022-01-06 15:19:00 [facility] Respitory Rate 2022-01-06 15:19:00 Memori al [place] Height 2022-01-06 15:19:00 160.02 cm [facility] [place] Weight 2022-01-06 15:19:00 [facility] Vcitor Hugo BMI Calculated 2022-01-06 15:19:00 Memori al [place] Systolic blood 2021-12-16 15:00:00 138 mm[Hg] [facility] pressure Diastolic blood 2021-12-16 15:00:00 82 mm[Hg] [facility] pressure Systolic (mm Hg) 2021-12-10 22:22:00 Rao rial [facility] Diastolic (mm Hg) 2021-12-10 22:22:00 Mem orial [facility] Heart Rate 2021-12-10 22:22:00 [facility] [place] Respitory Rate 2021-12-10 22:22:00 Memori [facility] [place] Height 2021-12-10 22:22:00 160.02 cm [facility] Weight 2021-12-10 22:22:00 [facility] BMI Calculated 2021-12-10 22:22:00 Memori al [place] Systolic (mm Hg) 2021-11-19 19:00:00 Rao rial [place] Diastolic (mm Hg) 2021-11-19 19:00:00 Mem orial [place] Heart Rate 2021-11-19 19:00:00 [facility] Respitory Rate 2021-11-19 19:00:00 Memori [facility] [place] Height 2021-11-19 19:00:00 160.02 cm [facility] Weight 2021-11-19 19:00:00 [facility] BMI Calculated 2021-11-19 19:00:00 Memori al [place] Heart rate 2021-11-18 16:04:00 80 /min [facility] Systolic (mm Hg) 2021-04-08 14:16:00 Rao rial [place] Diastolic (mm Hg) 2021-04-08 14:16:00 [facility] [place] Heart Rate 2021-04-08 14:16:00 [facility] Respitory Rate 2021-04-08 14:16:00 [facility] [place] Height 2021-04-08 14:16:00 162.56 cm [facility] [place] Weight 2021-04-08 14:16:00 [facility] BMI Calculated 2021-04-08 14:16:00 [facility] Systolic (mm Hg) 2020-12-22 20:47:00 [facility] Diastolic (mm Hg) 2020-12-22 20:47:00 [facility] [place] Height 2020-12-22 20:47:00 162.56 cm [facility] [place] Weight 2020-12-22 20:47:00 [facility] BMI Calculated 2020-12-22 20:47:00 [facility] Systolic (mm Hg) 2020-07-31 18:42:00 [facility] [place] Diastolic (mm Hg) 2020-07-31 18:42:00 [facility] [place] Heart Rate 2020-07-31 18:42:00 [facility] [place] Respitory Rate 2020-07-31 18:42:00 [facility] Height 2020-07-31 18:42:00 162.56 cm [facility] [place] Weight 2020-07-31 18:42:00 [facility] [place] BMI Calculated 2020-07-31 18:42:00 [facility] Temperature Oral (F) 2020-07-31 18:42:00 96.9 F [facility] Systolic (mm Hg) 2020-01-22 17:49:00 [facility]ao [facility] [place] Diastolic (mm Hg) 2020-01-22 17:49:00 [facility] [place] Heart Rate 2020-01-22 17:49:00 [facility] [place] Respitory Rate 2020-01-22 17:49:00 [facility] Height 2020-01-22 17:49:00 162.56 cm [facility] Weight 2020-01-22 17:49:00 [facility] BMI Calculated 2020-01-22 17:49:00 [facility] Systolic (mm Hg) 2020-01-11 21:53:00 [facility] Diastolic (mm Hg) 2020-01-11 21:53:00 [facility] Heart Rate 2020-01-11 21:53:00 [facility] Height 2020-01-11 21:53:00 162.56 cm [facility] Weight 2020-01-11 21:53:00 [facility] BMI Calculated 2020-01-11 21:53:00 [facility] Systolic (mm Hg) 2019-12-06 22:16:00 [facility] Diastolic (mm Hg) 2019-12-06 22:16:00 [facility] Heart Rate 2019-12-06 22:16:00 [facility] Respitory Rate 2019-12-06 22:16:00 [facility] Height 2019-12-06 22:16:00 162.56 cm [facility] Weight 2019-12-06 22:16:00 [facility] BMI Calculated 2019-12-06 22:16:00 [facility] BMI Calculated 2019-11-09 17:41:00 [facility] Height 2019-11-09 17:41:00 162.56 cm [facility] Weight 2019-11-09 17:41:00 [facility] Systolic (mm Hg) 2019-09-19 18:12:00 [facility] Diastolic (mm Hg) 2019-09-19 18:12:00 [facility] Heart Rate 2019-09-19 18:12:00 [facility] Respitory Rate 2019-09-19 18:12:00 [facility] Height 2019-09-19 18:12:00 162.56 cm [facility] Weight 2019-09-19 18:12:00 [facility] BMI Calculated 2019-09-19 18:12:00 [facility] [facility] Systolic (mm Hg) 2019-08-23 19:05:00 [facility] Diastolic (mm Hg) 2019-08-23 19:05:00 [facility] Heart Rate 2019-08-23 19:05:00 [facility] Respitory Rate 2019-08-23 19:05:00 [facility] Height 2019-08-23 19:05:00 162.56 cm [facility] Weight 2019-08-23 19:05:00 [facility] BMI Calculated 2019-08-23 19:05:00 [facility] Systolic (mm Hg) 2019-07-18 14:57:00 [facility] Diastolic (mm Hg) 2019-07-18 14:57:00 [facility] Heart Rate 2019-07-18 14:57:00 [facility] Respitory Rate 2019-07-18 14:57:00 [facility] Height 2019-07-18 14:57:00 162.56 cm [facility] Weight 2019-07-18 14:57:00 [facility] BMI Calculated 2019-07-18 14:57:00 [facility] Procedures Procedure Date / Time Performing Clinician Source Performed [facility] of 2022-07-21 21:48:00 [facility] muscle(s); muscle(s) innervated by facial, trigeminal, cervical spinal and accessory nerves, bilateral (eg, for chronic migraine) EXTERNAL PROVIDER RECORDS 2022-03-08 05:01:00 Doctor Unassigned, [facility] [place] [facility] EXTERNAL MAMMOGRAM 2021-08-31 13:00:00 Doctor Unassigned, [facility] [place] [facility] Arthroplasty [facility] Laminectomy [facility] Plan of Care Planned Activity Planned Date Details Comments Source Future Scheduled 2024-10-[address] [facility] Test 00:00:00 (procedure) [code = [facility] 62651001] Future Scheduled 2024-10-[address] [facility] Test 00:00:00 (procedure) [code = [facility] Center 80102513] Future Scheduled 2022-09-11 HEPATITIS B VACCINES Met [facility] Test 06:10:07 (1 of 3 - 3-dose series) [code = HEPATITIS B VACCINES (1 of 3 - 3-dose series)] Future Scheduled 2022-09-11 Hepatitis C screening [facility] Test 06:10:07 (procedure) [code = 244139493] Future Scheduled 2022-09-11 Screening for [facility] Test 06:10:07 malignant neoplasm of cervix (procedure) [code = 576759399] Future Scheduled 2022-09-11 BREAST CANCER [facility] Test 06:10:07 SCREENING [code = BREAST CANCER SCREENING] Future Scheduled 2022-09-11 COLONOSCOPY SCREENING [facility] Test 06:10:07 [code = COLONOSCOPY SCREENING] Future Scheduled 2022-09-11 SHINGLES VACCINES (1 Met [facility] Test 06:10:07 of 2) [code = SHINGLES VACCINES (1 of 2)] Future Scheduled 2022-09-11 Pneumococcal Vaccine: [facility] Test 06:10:07 Pediatrics (0 to 5 Years) and At-Risk Patients (6 to 64 Years) (2 - PPSV23 if available, else PCV20) [code = Pneumococcal Vaccine: Pediatrics (0 to 5 Years) and At-Risk Patients (6 to 64 Years) (2 - PPSV23 if available, else PCV20)] Future Scheduled 2022-09-11 COVID-19 VACCINE (3 - [facility] Test 06:10:07 Booster for Moderna series) [code = COVID-19 VACCINE (3 - Booster for Moderna series)] Future Scheduled 2022-09-11 INFLUENZA VACCINE Method [facility] Test 06:10:07 [code = INFLUENZA VACCINE] Future Scheduled 2022-09-06 HEPATITIS B VACCINES Met [facility] Test 14:11:02 (1 of 3 - 3-dose series) [code = HEPATITIS B VACCINES (1 of 3 - 3-dose series)] Future Scheduled 2022-09-06 Hepatitis C screening [facility] Test 14:11:02 (procedure) [code = 975867626] Future Scheduled 2022-09-06 Screening for [facility] Test 14:11:02 malignant neoplasm of cervix (procedure) [code = 640931455] Future Scheduled 2022-09-06 BREAST CANCER [facility] Test 14:11:02 SCREENING [code = BREAST CANCER SCREENING] Future Scheduled 2022-09-06 COLONOSCOPY SCREENING [facility] Test 14:11:02 [code = COLONOSCOPY SCREENING] Future Scheduled 2022-09-06 SHINGLES VACCINES (1 Met [facility] Test 14:11:02 of 2) [code = SHINGLES VACCINES (1 of 2)] Future Scheduled 2022-09-06 Pneumococcal Vaccine: [facility] Test 14:11:02 Pediatrics (0 to 5 Years) and At-Risk Patients (6 to 64 Years) (2 - PPSV23 or PCV20) [code = Pneumococcal Vaccine: Pediatrics (0 to 5 Years) and At-Risk Patients (6 to 64 Years) (2 - PPSV23 or PCV20)] Future Scheduled 2022-09-06 COVID-19 VACCINE (3 - [facility] Test 14:11:02 Booster for Moderna series) [code = COVID-19 VACCINE (3 - Booster for Moderna series)] Future Scheduled 2022-09-06 INFLUENZA VACCINE [facility] Test 14:11:02 [code = INFLUENZA VACCINE] Future Scheduled 2022-09-06 HEPATITIS B VACCINES Met [facility] Test 14:11:02 (1 of 3 - 3-dose series) [code = HEPATITIS B VACCINES (1 of 3 - 3-dose series)] Future Scheduled 2022-09-06 Hepatitis C screening [facility] Test 14:11:02 (procedure) [code = 474023330] Future Scheduled 2022-09-06 Screening for [facility] Test 14:11:02 malignant neoplasm of cervix (procedure) [code = 756596356] Future Scheduled 2022-09-06 BREAST CANCER [facility] Test 14:11:02 SCREENING [code = BREAST CANCER SCREENING] Future Scheduled 2022-09-06 COLONOSCOPY SCREENING [facility] Test 14:11:02 [code = COLONOSCOPY SCREENING] Future Scheduled 2022-09-06 SHINGLES VACCINES (1 Met [facility] Test 14:11:02 of 2) [code = SHINGLES VACCINES (1 of 2)] Future Scheduled 2022-09-06 Pneumococcal Vaccine: [facility] Test 14:11:02 Pediatrics (0 to 5 Years) and At-Risk Patients (6 to 64 Years) (2 - PPSV23 or PCV20) [code = Pneumococcal Vaccine: Pediatrics (0 to 5 Years) and At-Risk Patients (6 to 64 Years) (2 - PPSV23 or PCV20)] Future Scheduled 2022-09-06 COVID-19 VACCINE (3 - [facility] Test 14:11:02 Booster for Moderna series) [code = COVID-19 VACCINE (3 - Booster for Moderna series)] Future Scheduled 2022-09-06 INFLUENZA VACCINE [facility] Test 14:11:02 [code = INFLUENZA VACCINE] Future Scheduled 2022-07-29 INFLUENZA VACCINE (#1) [facility] 00:[facility]:00 [code = INFLUENZA Medical Ce nter VACCINE (#1)] Future Scheduled 2022-07-29 INFLUENZA VACCINE (#1) [facility] Test 00:00:00 [code = INFLUENZA Medical Ce nter VACCINE (#1)] Future Scheduled 2021-11-[address] [facility] Test 00:00:00 (12+) [code = Medical Center DEPRESSION SCREENING (12+)] Future Scheduled 2021-11-[address] [facility] Test 00:00:00 (12+) [code = Medical Center DEPRESSION SCREENING (12+)] Future Scheduled 2018-10-[address] [facility] Test 00:00:00 0-64 YRS (2 - PPSV23 Medical Center or PCV20) [code = PNEUMOCOCCAL VACCINE 0-64 YRS (2 - PPSV23 or PCV20)] Future Scheduled 2018-10-[address] [facility] Test 00:00:00 0-64 YRS (2 - PPSV23 Medical Center or PCV20) [code = PNEUMOCOCCAL VACCINE 0-64 YRS (2 - PPSV23 or PCV20)] Future Scheduled 2014 SHINGLES VACCINES ([address] [facility] Test 00:00:00 of 2) [code = SHINGLES Medic al Center VACCINES (1 of 2)] Future Scheduled 2014 SHINGLES VACCINES ([address] [facility] Test 00:00:00 of 2) [code = SHINGLES Medic al Center VACCINES (1 of 2)] Future Scheduled [address] [facility] 00:[facility]:00 malignant neoplasm of Medica l Center cervix (procedure) [code = 305167572] Future Scheduled [address] [facility] Test 00:00:00 malignant neoplasm of Medica l Center cervix (procedure) [code = 138946653] Future Scheduled 1983 DTAP/TDAP/TD [facility]ACCINES [facility] 00:00:00 (1 - Tdap) [code = Medical C enter DTAP/TDAP/TD VACCINES (1 - Tdap)] Future Scheduled 1983 DTAP/TDAP/TD VACCINES [facility] Test 00:00:00 (1 - Tdap) [code = Medical C enter DTAP/TDAP/TD VACCINES (1 - Tdap)] Future Scheduled 1965-03-25 COVID-19 VACCINE (#1) [facility] 00:00:00 [code = COVID-[address] VACCINE (#1)] Future Scheduled 1965-03-25 COVID-19 VACCINE (#1) [facility] 00:00:00 [code = COVID-[address] VACCINE (#1)] Future Scheduled [address] [facility] Test 00:00:00 malignant neoplasm of Medica l Center breast (procedure) [code = 135412094] Future Scheduled [address] [facility] Test 00:00:00 (combo) [code = CT Medical C enter Colonography (combo)] Future Scheduled [address] [facility] Test 00:00:00 malignant neoplasm of Medica l Center colon (procedure) [code = 639941623] Future Scheduled [address] [facility] Test 00:00:00 malignant neoplasm of Medica l Center colon (procedure) [code = 988869225] Future Scheduled [address] [facility] Test 00:00:00 malignant neoplasm of Medica l Center colon (procedure) [code = 003306544] Future Scheduled [address] [facility] Test 00:00:00 malignant neoplasm of Medica l Center colon (procedure) [code = 833585941] Future Scheduled 1964 Sigmoidoscopy [code [facility] S[facility]oscopy] Medical Cente r Future Scheduled [address] [facility] Test 00:00:00 malignant neoplasm of Medica l Center breast (procedure) [code = 333673141] Future Scheduled [address] [facility] Test 00:00:00 (combo) [code = CT Medical C enter Colonography (combo)] Future Scheduled [address] [facility] Test 00:00:00 malignant neoplasm of Medica l Center colon (procedure) [code = 381251132] Future Scheduled [address] [facility] Test 00:00:00 malignant neoplasm of Medica l Center colon (procedure) [code = 430892372] Future Scheduled [address] [facility] Test 00:00:00 malignant neoplasm of Medica l Center colon (procedure) [code = 874748469] Future Scheduled [address] [facility] Test 00:00:00 malignant neoplasm of Medica l Center colon (procedure) [code = 995364880] Future Scheduled 1964 Sigmoidoscopy [facility] 00:[facility] S[facility]oidoscopy] Medical Lissa r Encounters Start End Encounter Admission Attending Care Care Encounter Source Date/Time Date/Time Type Type Clinicians Facility Department ID 2021-06-08 Inpatient EL Eulogio, HCACL DAYS [id number] [facility] 10:30:00 [place] [id number] [facility] 2021-06-05 Inpatient EL Eulogio, HCACL DAYS [id number] [facility] 11:30:00 [place] [id number] [facility] 2021-05-19 Inpatient Eulogio, HCACL DAYS [id number] [facility] 07:30:00 Eaton [id number] [facility] 2021-05-15 Inpatient EL Eulogio, HCACL DAYS [id number] [facility] 14:00:00 [place] [id number] [facility] 2022-11-15 2022-11-15 Outpatient JAY COLLINS [id number] [address] [place] [address] 13:00:00 13:00:00 24 baldemar Gay 2022-11-15 2022-11-15 Outpatient MHIE MHIE [id number] [facility]oria 13:00:00 13:00:00 24 l [facility] 2022-11-15 2022-11-15 Outpatient MHIE MHIE [id number] Memoria 13:00:00 13:00:00 24 l [facility] 2022-10-29 2022-10-29 Outpatient TONY OLGUIN [facility] [id number] Univers 13:30:00 13:30:00 [facility] 2022-09-13 2022-09-13 Outpatient MHIE MHIE [id number] Memoria 13:00:00 13:00:00 26 l [facility] 2022-09-13 2022-09-13 Outpatient MHIE MHIE [id number] Memoria 13:00:00 13:00:00 26 l [facility] 2022-09-13 2022-09-13 Outpatient MHIE MHIE [id number] Memoria 13:00:00 13:00:00 26 l [facility] 2022-09-07 2022-09-08 Outpatient nullFlavo MNA [id number] Memoria 19:45:00 04:59:59 r Neurology 25 [place] 2022-09-07 2022-09-08 Outpatient nullFlavo MNA [id number] Memoria 19:45:00 04:59:59 r Neurology 25 l Elvin Gay 2022-09-07 2022-09-07 Outpatient KEITH OrtegaSCHER MHMISCHER [id number] 14:45:00 23:59:59 Ab 25 Abran 2022-09-07 2022-09-07 Outpatient KEITH OrtegaSCHER MHMISCHER [id number] 14:45:00 23:59:59 Ab 25 Abran 2022-09-07 2022-09-07 Outpatient MHIE MHIE [id number] Memoria 14:45:00 14:45:00 25 l [facility] 2022-09-07 2022-09-07 Outpatient MHIE MHIE [id number] Memoria 14:45:00 14:45:00 25 l [facility] 2022-09-07 2022-09-07 Outpatient MHIE MHIE [id number] Memoria 14:45:00 14:45:00 25 l [facility] 2022-08-20 2022-08-20 Outpatient R TONY DAS [facility] [id number] Univers 10:30:00 10:30:00 [facility] 2022-08-13 2022-08-13 Pre Visit DASH Anderson [id number] Univers 00:00:00 00:00:00 Outreach Lissy ACOSTA 350.1.13.10 i ty of BRIJESH 4.2.7.2.686 [facility] s [phone] [address] 2022-07-21 2022-07-22 Outpatient nullFlavo MNA [id number] Memoria 21:00:00 04:59:59 r Neurology 23 l Elvin Rashidann 2022-07-21 2022-07-22 Outpatient nullFlavo MNA [id number] Memoria 21:00:00 04:59:59 r Neurology 23 l [place] 2022-07-21 2022-07-22 Outpatient nullFlavo MNA [id number] Memoria 21:00:00 04:59:59 r Neurology 23 l [place] 2022-07-21 2022-07-21 Outpatient Shannon MHMISCHER MHMISCHER [id number] 16:00:00 23:59:59 Ab 23 Abran 2022-07-21 2022-07-21 Outpatient BINTA OrtegaMISCHER MHMISCHER [id number] 16:00:00 23:59:59 Ab 23 Abran 2022-07-21 2022-07-21 Outpatient MHIE MHIE [id number] Memoria 16:00:00 16:00:00 23 l [facility] 2022-07-21 2022-07-21 Outpatient MHIE MHIE [id number] Memoria 16:00:00 16:00:00 23 l [facility] 2022-04-13 2022-04-13 Ambulatory nullFlavo MNA [id number] Memoria 18:15:00 18:15:00 Pre-Reg r Neurology 22 l [place] 2022-04-13 2022-04-13 Ambulatory nullFlavo MNA [id number] Memoria 18:15:00 18:15:00 Pre-Reg r Neurology 22 l [place] [facility] 2022-04-13 2022-04-13 Ambulatory nullFlavo MNA [id number] Memoria 18:15:00 18:15:00 Pre-Reg r Neurology 22 l Elvin Gay 2022-04-13 2022-04-13 Outpatient MHIE MHIE [id number] Memoria 13:15:00 13:15:00 22 baldemar Gay 2022-04-13 2022-04-13 Outpatient MHIE MHIE [id number] Memoria 13:15:00 13:15:00 22 baldemar Gay 2022-04-13 2022-04-13 Outpatient BINTA OrtegaMISCHER MHMISCHER [id number] 13:15:00 13:15:00 Ab 22 Abran 2022-04-13 2022-04-13 Outpatient Shannon MHMISCHER MHMISCHER [id number] 13:15:00 13:15:00 Ab 22 Abran 2022-03-08 2022-03-08 Orders Doctor GEORGIA [id number] [id number] Univers 00:00:00 00:00:00 Only Unassigned, LISA 350.1.13.10 ity of [place] [facility] 4.2.7.2.686 Luis as [phone] [address] 2022-02-11 2022-02-12 Outpatient nullFlavo MNA [id number] Memoria 18:00:00 04:59:59 r Neurology 19 l Elvin Gay 2022-02-11 2022-02-12 Outpatient nullFlavo MNA [id number] Memoria 18:00:00 04:59:59 r Neurology 19 l Elvin Gay 2022-02-11 2022-02-12 Outpatient nullFlavo MNA [id number] Memoria 18:00:00 04:59:59 r Neurology 19 l Elvin Gay 2022-02-11 2022-02-11 Outpatient Shannon MHMISCHER MHMISCHER [id number] 13:00:00 23:59:59 Ab 19 Abran 2022-02-11 2022-02-11 Outpatient Shannon MHMISCHER MHMISCHER [id number] 13:00:00 23:59:59 Ab 19 Abrna 2022-02-11 2022-02-11 Outpatient MHIE MHIE [id number] Memoria 13:00:00 13:00:00 19 baldemar Gay 2022-02-11 2022-02-11 Outpatient MHIE MHIE [id number] Memoria 13:00:00 13:00:00 19 baldemar Gay 2022-01-06 2022-01-07 Outpatient nullFlavo MNA [id number] Memoria 15:15:00 05:59:59 r Neurology 21 l Elvin Gay 2022-01-06 2022-01-07 Outpatient nullFlavo MNA [id number] Memoria 15:15:00 05:59:59 r Neurology 21 l Elvin Gay 2022-01-06 2022-01-07 Outpatient nullFlavo MNA [id number] Memoria 15:15:00 05:59:59 r Neurology 21 l Elvin Gay 2022-01-06 2022-01-06 Outpatient BINTA OrtegaMISCHER MHMISCHER [id number] 09:15:00 23:59:59 Ab 21 Abran 2022-01-06 2022-01-06 Outpatient BINTA OrtegaMISCHER MHMISCHER [id number] 09:15:00 23:59:59 Ab 21 Abran 2022-01-06 2022-01-06 Outpatient MHIE BINTAIE [id number] Memoria 09:15:00 09:15:00 21 baldemar Gay 2022-01-06 2022-01-06 Outpatient MHIE MHIE [id number] Memoria 09:15:00 09:15:00 21 baldemar Gay 2021-12-16 2021-12-16 Treatment [facility] .2.840.1 [id number] Methodi 09:00:00 10:00:00 [address] 3.430.2.7 Hospit a .3.514546 l .8 2021-12-16 2021-12-16 Treatment Beverly [place]ail 1.2.840.1 [id number] Methodi 09:00:00 10:00:00 Caprice [address]anda[address] 3.430.2.7 Hospit a .3.809354 l .8 2021-12-16 2021-12-16 Travel 1.2.840.1 1.2.388.090 [id number] Methodi 00:00:00 00:00:[address] 3.430.2.7 0.2.7.3.698 Ho spita .3.002909 084.8 l .8 2021-12-16 2021-12-16 Travel 1.2.840.1 1.2.361.672 [id number] Methodi 00:00:00 00:00:[address] 3.430.2.7 0.2.7.3.698 Ho spita .3.609701 084.8 l .8 2021-12-10 2021-12-11 Outpatient nullFlavo MNA [id number] Memoria 22:15:00 05:59:59 r Neurology 20 l Elvin Gay 2021-12-10 2021-12-11 Outpatient nullFlavo MNA [id number] Memoria 22:15:00 05:59:59 r Neurology 20 l Elvin Gay 2021-12-10 2021-12-11 Outpatient nullFlavo MNA [id number] Memoria 22:15:00 05:59:59 r Neurology 20 l Elvin Gay 2021-12-10 2021-12-10 Outpatient KEITH OrtegaSCHZURDO MISCHER [id number] 16:15:00 23:59:59 Ab 20 Abran 2021-12-10 2021-12-10 Outpatient KEITH OrtegaSCHER MISCHER [id number] 16:15:00 23:59:59 Ab 20 Abran 2021-12-10 2021-12-10 Ambulatory nullFlavo MNA [id number] Memoria 22:15:00 22:15:00 Pre-Reg r Neurology 17 l Elvin Gay 2021-12-10 2021-12-10 Ambulatory nullFlavo MNA [id number] Memoria 22:15:00 22:15:00 Pre-Reg r Neurology 17 l Elvin Gay 2021-12-10 2021-12-10 Ambulatory nullFlavo MNA [id number] Memoria 22:15:00 22:15:00 Pre-Reg r Neurology 17 l Elvin Gay 2021-12-10 2021-12-10 Outpatient MHIE MHIE [id number] Memoria 16:15:00 16:15:00 20 l [facility] 2021-12-10 2021-12-10 Outpatient MHIE MHIE [id number] Memoria 16:15:00 16:15:00 17 l Victor Hugo 2021-12-10 2021-12-10 Outpatient MHIE MHIE [id number] Memoria 16:15:00 16:15:00 20 l Victor Hugo 2021-12-10 2021-12-10 Outpatient MHIE MHIE [id number] Memoria 16:15:00 16:15:00 17 baldemar Gay 2021-12-10 2021-12-10 Outpatient Shannon, MHMISCHER MHMISCHER [id number] 16:15:00 16:15:00 Ab 17 Abran 2021-12-10 2021-12-10 Outpatient Shannon MHMISCHER MHMISCHER [id number] 16:15:00 16:15:00 Ab 17 Abran 2021-11-30 2021-11-30 Treatment Beverly Cartagenail 1.2.840.1 [id number] Methodi 09:00:00 10:00:00 Caprice L[address]de [address] 3.430.2.7 Hospit a .3.034857 l .8 2021-11-30 2021-11-30 Treatment Beverly Cartagena Candice 1.2.840.1 [id number] Methodi 09:00:00 10:00:00 Anyaluiz Caprice [address] 3.430.2.7 Hospit a .3.766635 l .8 2021-11-30 2021-11-30 Travel 1.2.840.1 1.2.716.838 [id number] Methodi 00:00:00 00:00:[address] 3.430.2.7 0.2.7.3.698 Ho spita .3.019848 084.8 l .8 2021-11-30 2021-11-30 Travel 1.2.840.1 1.2.838.982 [id number] Methodi 00:00:00 00:00:[address] 3.430.2.7 0.2.7.3.698 Ho spita .3.174384 084.8 l .8 2021-11-19 2021-11-20 Outpatient nullFlavo MNA [id number] Memoria 19:00:00 05:59:59 r Neurology 18 l Elvin Gay 2021-11-19 2021-11-20 Outpatient nullFlavo MNA [id number] Memoria 19:00:00 05:59:59 r Neurology 18 l Elvin Gay 2021-11-19 2021-11-20 Outpatient nullFlavo MNA [id number] Memoria 19:00:00 05:59:59 r Neurology 18 l Elvin Gay 2021-11-19 2021-11-19 Outpatient Shannon, MHMISCHER MHMISCHER [id number] 13:00:00 23:59:59 Ab 18 Abran 2021-11-19 2021-11-19 Outpatient Shannon, MHMISCHER MHMISCHER [id number] 13:00:00 23:59:59 Ab 18 Abran 2021-11-19 2021-11-19 Outpatient MHIE MHIE [id number] Memoria 13:00:00 13:00:00 18 l Victor Hugo 2021-11-19 2021-11-19 Outpatient MHIE MHIE [id number] Memoria 13:00:00 13:00:00 18 baldemar Gay 2021-11-18 2021-11-18 Treatment Beverly Cartagena Candice 1.2.840.1 [id number] Methodi 10:00:00 11:00:00 Nenita Marshall [address]473.1.[address] 3.430.2.7 Hospit a .3.988520 l .8 2021-11-18 2021-11-18 Treatment Beverly Cartagena Candice 1.2.840.1 [id number] Methodi 10:00:00 11:00:00 Nenita Marshall [address]37.1.[address] 3.430.2.7 Hospit a .3.884042 l .8 2021-11-17 2021-11-17 Evaluation Beverly Cartagenail 1.2.840. 1 [id number] Methodi 08:00:00 09:00:00 Caprice Landaverde 87432.[address] 3.430.2.7 Hospit a .3.042388 l .8 2021-11-17 2021-11-17 Evaluation Beverly Cartagenail 1.2.840. 1 [id number] Methodi 08:00:00 09:00:00 Caprice Landaverde [address] 3.430.2.7 Hospit a .3.513497 l .8 2021-11-17 2021-11-17 Plan of 1.2.840.1 [id number] Methodi 00:00:00 00:00:[address] Documentat 3.430.2.7 Hos rene ion .3.527487 l .8 2021-11-17 2021-11-17 Travel 1.2.840.1 1.2.785.929 [id number] Methodi 00:00:00 00:00:[address] 3.430.2.7 0.2.7.3.698 Ho spita .3.385506 084.8 l .8 2021-11-17 2021-11-17 Plan of 1.2.840.1 [id number] Methodi 00:00:00 00:00:[address] Documentat 3.430.2.7 Hos rene ion .3.441003 l .8 2021-11-17 2021-11-17 Travel 1.2.840.1 1.2.607.390 [id number] Methodi 00:00:00 00:00:[address] 3.430.2.7 0.2.7.3.698 Ho spita .3.480784 084.8 l .8 2021-11-12 2021-11-12 Transcribe Eulogio, 1.2.840.1 [id number] Methodi 00:00:00 00:00:00 Orders [place] [address]389.1.[address] [place] 3.430.2.7 Hospit a .3.780051 l .8 2021-11-12 2021-11-12 Travel 1.2.840.1 1.2.865.092 7616 107537 Methodi 00:00:00 00:00:[address] 3.430.2.7 0.2.7.3.698 Ho spita .3.695958 084.8 l .8 2021-11-12 2021-11-12 Transcribe Eulogio, 1.2.840.1 [id number] 044 [id number] Methodi 00:00:00 00:00:00 Orders [place] [address]125.1.[address] [place]ice 3.430.2.7 Hospit a .3.951252 l .8 2021-11-12 2021-11-12 Travel 1.2.840.1 1.2.771.836 3350 256977 Methodi 00:00:00 00:00:[address] 3.430.2.7 0.2.7.3.698 Ho spita .3.017459 084.8 l .8 2021-09-04 2021-09-06 Outside nullFlavo MNA [id number] Memoria 14:17:35 04:59:59 Medical r Neurology 02 l Records [place] Victor Hugo 2021-09-04 2021-09-06 Outside nullFlavo MNA [id number] Memoria 14:17:35 04:59:59 Medical r Neurology 02 l Records Elvin Gay 2021-09-04 2021-09-06 Outside nullFlavo MNA [id number] Memoria 14:17:35 04:59:59 Medical r Neurology 02 l Records Elvin Gay 2021-09-04 2021-09-05 Outpatient MHMISCHER MHMISCHER [id number] 09:17:35 23:59:59 02 2021-09-04 2021-09-05 Outpatient MHMISCHER MHMISCHER [id number] 09:17:35 23:59:59 02 2021-08-31 2021-08-31 Outpatient EULOGIO, [facility] [id number] [address] [place] [address] 00:00:00 00:00:00 BEVERLY 800 Method i 2021-08-27 2021-08-27 Outpatient EULOGIO, [facility] [id number] [address] [place] [address] 00:00:00 00:00:00 BEVERLY 462 Method i 2021-08-24 2021-08-26 Outside nullFlavo MNA [id number] 55 Memoria 14:49:32 04:59:59 Medical r Neurology 01 l Records Elvin Gay 2021-08-24 2021-08-26 Outside nullFlavo MNA [id number] [facility]oria 14:49:32 04:59:59 Medical r Neurology 01 l Records Elvin Gay 2021-08-24 2021-08-26 Outside nullFlavo MNA [id number] Memoria 14:49:32 04:59:59 Medical r Neurology 01 l Records Elvin Gay 2021-08-24 2021-08-25 Outpatient MHMISCHER MHMISCHER [id number] 09:49:32 23:59:59 2021-08-24 2021-08-25 Outpatient MHMISCHER MHMISCHER [id number] 09:49:32 23:59:59 2021-08-24 2021-08-24 Outpatient EULOGIO, [facility] [id number] [address] [place] 00:00:00 00:00:00 BEVERLY 384 Method i 2021-08-20 2021-08-20 Outpatient EULOGIO, [facility] [id number] [address] [place] [address] 00:00:00 00:00:00 BEVERLY 342 Method i 2021-08-19 2021-08-19 Outpatient EULOGIO, [facility] [id number] [address] [place] 00:00:00 00:00:00 BEVERLY 343 Method i 2021-08-14 2021-08-14 Office Tony Das [facility] [id number] 10:12:38 10:59:24 Visit Bhupinder Lopez [id number] it y Women's [id number] [facility] [id number] [address] 2021-08-14 2021-08-14 Outpatient R THIAGO TONY [facility] [id number] [facility] 10:15:00 10:15:00 ity [facility] 2021-08-10 2021-08-10 Outpatient EULOGIO, [facility] [id number] [address] [place] 00:00:00 00:00:00 BEVERLY 230 Method i 2021-08-06 2021-08-06 Outpatient EULOGIO, [facility] [id number] [address] [place] 00:00:00 00:00:00 BEVERLY 205 Method i 2021-07-30 2021-07-30 Outpatient EULOGIO, [facility] [id number] [address] [place] 00:00:00 00:00:00 BEVERLY 805 Method i 2021-07-27 2021-07-27 Outpatient EULOGIO, [facility] [id number] [address] [place] 00:00:00 00:00:00 BEVERLY 774 Method i 2021-07-23 2021-07-23 Outpatient EULOGIO, [facility] [id number] [address] [place] 00:00:00 00:00:00 BEVERLY 727 Method i 2021-07-20 2021-07-20 Outpatient EULOGIO, [facility] [id number] [address] [place] 00:00:00 00:00:00 BEVERLY 774 Method i 2021-07-09 2021-07-09 Outpatient EULOGIO, [facility] [id number] [address] [place] 00:00:00 00:00:00 BEVERLY 643 Method i 2021-07-08 2021-07-08 Outpatient EULOGIO, [facility] [id number] [address] [place] 00:00:00 00:00:00 BEVERLY 592 Method i 2021-07-02 2021-07-02 Outpatient EULOGIO, [facility] [id number] [address] [place] 00:00:00 00:00:00 BEVERLY 982 Method i 2021-06-23 2021-06-23 Outpatient EULOGIO, [facility] [id number] [address] [place] 00:00:00 00:00:00 BEVERLY 244 Method i 2021-06-09 2021-06-11 Inpatient RODNEY Patterson, HCACL MEDI.01 [id number] [facility] 16:03:00 15:30:00 Reji [id number] [facility] 2021-06-09 2021-06-09 Outpatient Jason Bearden [facility] [id number] [facility] 16:08:00 16:08:00 79 [facility] 2021-04-08 2021-04-09 Outpatient nullFlavo MNA [id number] Memoria 14:00:00 04:59:59 r Neurology 16 l [place] 2021-04-08 2021-04-09 Outpatient nullFlavo MNA [id number] Memoria 14:00:00 04:59:59 r Neurology 16 l [place] 2021-04-08 2021-04-09 Outpatient nullFlavo MNA [id number] Mem[facility] 14:00:00 04:59:59 r Neurology 16 l Elvin Gay 2021-04-08 2021-04-08 Outpatient KEITH OrtegaSCHER MHMISCHER [id number] 09:00:00 23:59:59 Ab 16 [place] 2021-04-08 2021-04-08 Outpatient KEITH OrtegaSCHER MHMISCHER [id number] 09:00:00 23:59:59 Ab 16 [place] 2021-04-08 2021-04-08 Outpatient MHIE MHIE [id number] [facility] 09:00:00 09:00:00 16 l [place] 2021-04-08 2021-04-08 Outpatient MHIE MHIE [id number] [facility] 09:00:00 09:00:00 16 l [place] 2020-12-26 2020-12-28 Outside nullFlavo MNA [id number] [facility] 17:32:20 05:59:59 Medical r Neurology 00 l Records Elvin Gay 2020-12-26 2020-12-28 Outside nullFlavo MNA [id number] [facility] 17:32:20 05:59:59 Medical r Neurology 00 l Records Elvin Gay 2020-12-26 2020-12-28 Outside nullFlavo MNA [id number] [facility] 17:32:20 05:59:59 Medical r Neurology 00 l Records Elvin Gay 2020-12-26 2020-12-27 Outpatient MHMISCHER MHMISCHER [id number] 11:32:20 23:59:59 00 2020-12-26 2020-12-27 Outpatient MHMISCHER MHMISCHER [id number] 11:32:20 23:59:59 00 2020-12-22 2020-12-23 Outpatient nullFlavo MNA [id number] Mem[facility] 20:30:00 05:59:59 r Neurology 15 l Elvin Gay 2020-12-22 2020-12-23 Outpatient nullFlavo MNA [id number] Memoria 20:30:00 05:59:59 r Neurology 15 l Elvin Gay 2020-12-22 2020-12-23 Outpatient nullFlavo MNA [id number] Memoria 20:30:00 05:59:59 r Neurology 15 l Elvin Gay 2020-12-22 2020-12-22 Outpatient KEITH OrtgeaSCHER MHMISCHER [id number] 14:30:00 23:59:59 Ab 15 [place] 2020-12-22 2020-12-22 Outpatient Shannon MHMISCHER MHMISCHER [id number] 14:30:00 23:59:59 Ab 15 [place] 2020-12-22 2020-12-22 Outpatient MHIE MHIE [id number] [facility] 14:30:00 14:30:00 15 baldemar Gay 2020-12-22 2020-12-22 Outpatient MHIE MHIE [id number] [facility] 14:30:00 14:30:00 15 baldemar Gay 2020-12-04 2020-12-04 Ambulatory nullFlavo MNA [id number] Memoria 19:15:00 19:15:00 Pre-Reg r Neurology 14 l Elvin Gay 2020-12-04 2020-12-04 Ambulatory nullFlavo MNA [id number] Memoria 19:15:00 19:15:00 Pre-Reg r Neurology 14 l Elvin Gay 2020-12-04 2020-12-04 Ambulatory nullFlavo MNA [id number] Memoria 19:15:00 19:15:00 Pre-Reg r Neurology 14 l [place] Gay 2020-12-04 2020-12-04 Outpatient MHIE MHIE [id number] [place] 13:15:00 13:15:00 14 baldemar Gay 2020-12-04 2020-12-04 Outpatient MHIE MHIE [id number] [facility] 13:15:00 13:15:00 14 baldemar Gay 2020-12-04 2020-12-04 Outpatient KEITH OrtegaSCHER MHMISCHER [id number] 13:15:00 13:15:00 Ab 14 [place] 2020-12-04 2020-12-04 Outpatient KEITH OrtegaSCHER MHMISCHER [id number] 13:15:00 13:15:00 Ab 14 [place] 2020-09-30 2020-09-30 Outpatient [facility] [id number] [address] [place] [address] 00:00:00 00:00:00 [place] [address] Meena grant 2020-07-31 2020-08-01 Outpatient nullFlavo MNA [id number] Memoria 18:15:00 04:59:59 r Neurology 13 l [place] 2020-07-31 2020-08-01 Outpatient nullFlavo MNA [id number] Memoria 18:15:00 04:59:59 r Neurology 13 l [place] 2020-07-31 2020-08-01 Outpatient nullFlavo MNA [id number] Memoria 18:15:00 04:59:59 r Neurology 13 baldemar [place] 2020-07-31 2020-07-31 Outpatient KEITH OrtegaSCHER MHMISCHER [id number] 13:15:00 23:59:59 Ab 13 [place] 2020-07-31 2020-07-31 Outpatient KEITH OrtegaSCHER MHMISCHER [id number] 13:15:00 23:59:59 Ab 13 [place] 2020-07-31 2020-07-31 Outpatient MHIE MHIE [id number] [facility] 13:15:00 13:15:00 13 baldemar [place] 2020-07-31 2020-07-31 Outpatient MHIE MHIE [id number] [facility] 13:15:00 13:15:00 13 baldemar [place] 2020-07-29 2020-07-29 Ambulatory nullFlavo MNA [id number] Memoria 16:15:00 16:15:00 Pre-Reg r Neurology 12 l [place]vin [place] 2020-07-29 2020-07-29 Ambulatory nullFlavo MNA [id number] Memoria 16:15:00 16:15:00 Pre-Reg r Neurology 12 baldemar [place] 2020-07-29 2020-07-29 Ambulatory nullFlavo MNA [id number] Memoria 16:15:00 16:15:00 Pre-Reg r Neurology 12 baldemar [place] 2020-07-29 2020-07-29 [id number] 11:15:00 11:15:00 Ab 12 [place] 2020-07-29 2020-07-29 [facility] [id number] 11:15:00 11:15:00 Ab 12 [place] 2020-06-06 2020-06-06 Ambulatory nullFlavo MNA [id number] Memoria 18:00:00 18:00:00 Pre-Reg r Neurology 11 l [place] 2020-06-06 2020-06-06 Ambulatory nullFlavo MNA [id number] Memoria 18:00:00 18:00:00 Pre-Reg r Neurology 11 l Elvin [place] 2020-06-06 2020-06-06 Ambulatory nullFlavo MNA [id number] Memoria 18:00:00 18:00:00 Pre-Reg r Neurology 11 l [place] 2020-06-06 2020-06-06 Outpatient MHIE MHIE [id number] [facility] 13:00:00 13:00:00 12 baldemar [place] 2020-06-06 2020-06-06 Outpatient MHIE MHIE [id number] [facility] 13:00:00 13:00:00 11 baldemar [place] 2020-06-06 2020-06-06 Outpatient MHIE MHIE [id number] [facility] 13:00:00 13:00:00 12 l [place] 2020-06-06 2020-06-06 Outpatient MHIE MHIE [id number] [facility] 13:00:00 13:00:00 11 baldemar Gay 2020-06-06 2020-06-06 Outpatient Shannon, MHMISCHER MHMISCHER [id number] 13:00:00 13:00:00 Ab 11 [place] 2020-06-06 2020-06-06 [facility] [id number] 13:00:00 13:00:00 Ab 11 [place] 2020-03-12 2020-03-13 Outpatient nullFlavo MNA [id number] Memoria 18:45:00 04:59:59 r Neurology 09 l [place] 2020-03-12 2020-03-13 Outpatient nullFlavo MNA [id number] Memoria 18:45:00 04:59:59 r Neurology 09 l [place] 2020-03-12 2020-03-13 Outpatient nullFlavo MNA [id number] Memoria 18:45:00 04:59:59 r Neurology 09 l Elvin [place] 2020-03-12 2020-03-12 Outpatient Shannon, MISCHER MHMISCHER [id number] 13:45:00 23:59:59 Ab 09 [place] 2020-03-12 2020-03-12 Outpatient Shannon, MHMISCHER MHMISCHER [id number] 13:45:00 23:59:59 Ab 09 [place] 2020-03-12 2020-03-12 Outpatient MHIE MHIE [id number] [facility] 13:45:00 13:45:00 09 baldemar [place] 2020-03-12 2020-03-12 Outpatient MHIE MHIE [id number] [facility] 13:45:00 13:45:00 09 l [place] 2020-01-22 2020-01-23 Outpatient nullFlavo MNA [id number] Memoria 17:45:00 05:59:59 r Neurology 10 l [place] 2020-01-22 2020-01-23 Outpatient nullFlavo MNA [id number] Memoria 17:45:00 05:59:59 r Neurology 10 l [place] 2020-01-22 2020-01-23 Outpatient nullFlavo MNA [id number] Memoria 17:45:00 05:59:59 r Neurology 10 l [place] 2020-01-22 2020-01-22 [facility] [id number] 11:45:00 23:59:59 Ab 10 [facility] 2020-01-22 2020-01-22 [facility] [id number] 11:45:00 23:59:59 Ab 10 [facility] 2020-01-22 2020-01-22 Outpatient MHIE MHIE [id number] [place] 11:45:00 11:45:00 10 l [place] 2020-01-22 2020-01-22 Outpatient MHIE MHIE [id number] [facility] 11:45:00 11:45:00 10 l [place] 2020-01-11 2020-01-12 Outpatient nullFlavo MNA [id number] Memoria 20:15:00 05:59:59 r Neurology 08 l [place] 2020-01-11 2020-01-12 Outpatient nullFlavo MNA [id number] Memoria 20:15:00 05:59:59 r Neurology 08 l [place] 2020-01-11 2020-01-12 Outpatient nullFlavo MNA [id number] Memoria 20:15:00 05:59:59 r Neurology 08 l [place] 2020-01-11 2020-01-11 [facility] [id number] 14:15:00 23:59:59 Ab 08 [facility] 2020-01-11 2020-01-11 [facility] [id number] 14:15:00 23:59:59 Ab 08 [facility] 2020-01-11 2020-01-11 Ambulatory nullFlavo MNA [id number] Memoria 20:15:00 20:15:00 Pre-Reg r Neurology 07 l [place] 2020-01-11 2020-01-11 Ambulatory nullFlavo MNA [id number] Memoria 20:15:00 20:15:00 Pre-Reg r Neurology 07 l [place] 2020-01-11 2020-01-11 Ambulatory nullFlavo MNA [id number] Memoria 20:15:00 20:15:00 Pre-Reg r Neurology 07 l [place] 2020-01-11 2020-01-11 Outpatient MHIE MHIE [id number] [facility] 14:15:00 14:15:00 08 l [place] 2020-01-11 2020-01-11 Outpatient MHIE MHIE [id number] [facility] 14:15:00 14:15:00 07 l [place] 2020-01-11 2020-01-11 Outpatient MHIE MHIE [id number] [facility] 14:15:00 14:15:00 08 l [place] 2020-01-11 2020-01-11 Outpatient MHIE MHIE [id number] [facility] 14:15:00 14:15:00 07 l [place] 2020-01-11 2020-01-11 Outpatient Shannon, MHMISCHER MHMISCHER [id number] 14:15:00 14:15:00 Ab 07 [place] 2020-01-11 2020-01-11 Outpatient BINTA OrtegaMISCHER MHMISCHER [id number] 14:15:00 14:15:00 Ab 07 [place] 2019-12-06 2019-12-07 Outpatient nullFlavo MNA [id number] Memoria 22:00:00 05:59:59 r Neurology 06 l [place] 2019-12-06 2019-12-07 Outpatient nullFlavo MNA [id number] Memoria 22:00:00 05:59:59 r Neurology 06 l [place] Gay 2019-12-06 2019-12-07 Outpatient nullFlavo MNA [id number] Memoria 22:00:00 05:59:59 r Neurology 06 l [place] 2019-12-06 2019-12-06 Outpatient BINTA OrtegaMISCHER MHMISCHER [id number] 16:00:00 23:59:59 Ab 06 [place] 2019-12-06 2019-12-06 Outpatient Shannon, MHMISCHER MHMISCHER [id number] 16:00:00 23:59:59 Ab 06 [place] 2019-12-06 2019-12-06 Outpatient MHIE MHIE [id number] [facility] 16:00:00 16:00:00 06 baldemar Gay 2019-12-06 2019-12-06 Outpatient MHIE MHIE [id number] [facility] 16:00:00 16:00:00 06 l [place] 2019-12-05 2019-12-05 Ambulatory nullFlavo MNA [id number] Memoria 14:15:00 14:15:00 Pre-Reg r Neurology 05 baldemar Gay 2019-12-05 2019-12-05 Ambulatory nullFlavo MNA [id number] Memoria 14:15:00 14:15:00 Pre-Reg r Neurology 05 l El[place] Gay 2019-12-05 2019-12-05 Ambulatory nullFlavo MNA [id number] Memoria 14:15:00 14:15:00 Pre-Reg r Neurology 05 baldemar Gay 2019-12-05 2019-12-05 Outpatient MHIE MHIE [id number] Memoria 08:15:00 08:15:00 05 baldemar Gay 2019-12-05 2019-12-05 Outpatient MHIE MHIE [id number] Memoria 08:15:00 08:15:00 05 baldemar Gay 2019-12-05 2019-12-05 Outpatient Shannon MISCHER MHMISCHER [id number] 08:15:00 08:15:00 Ab Lenin Osullivan 2019-12-05 2019-12-05 [facility] [id number] 08:15:00 08:15:00 Ab Lenin [place]ullivan 2019-11-16 2019-11-16 Ambulatory nullFlavo MNA [id number] Memoria 19:00:00 19:00:00 Pre-Reg r Neurology 03 baldemar Gay 2019-11-16 2019-11-16 Ambulatory nullFlavo MNA [id number] Memoria 19:00:00 19:00:00 Pre-Reg r Neurology 03 baldemar Gay 2019-11-16 2019-11-16 Ambulatory nullFlavo MNA [id number] Memoria 19:00:00 19:00:00 Pre-Reg r Neurology 03 baldemar Gay 2019-11-16 2019-11-16 Outpatient MHIE MHIE [id number] Memoria 13:00:00 13:00:00 03 baldemar Gay 2019-11-16 2019-11-16 Outpatient MHIE MHIE [id number] Memoria 13:00:00 13:00:00 03 baldemar Gay 2019-11-16 2019-11-16 Outpatient Shannon DANIELLESCHER MHMISCHER [id number] 13:00:00 13:00:00 Ab 03 [place] 2019-11-16 2019-11-16 Outpatient BINTA OrtegaVTSCHER MHMISCHER [id number] 13:00:00 13:00:00 Ab 03 [place] 2019-11-09 2019-11-10 Outpatient nullFlavo MNA [id number] Memoria 17:30:00 05:59:59 r Neurology 04 baldemar [place] 2019-11-09 2019-11-10 Outpatient nullFlavo MNA [id number] Memoria 17:30:00 05:59:59 r Neurology 04 baldemar [place] 2019-11-09 2019-11-10 Outpatient nullFlavo MNA [id number] Memoria 17:30:00 05:59:59 r Neurology 04 baldemar [place] 2019-11-09 2019-11-09 Outpatient BINTA OrtegaVTSCHER MHMISCHER [id number] 11:30:00 23:59:59 Ab Sparkle [place] 2019-11-09 2019-11-09 Outpatient BINTA OrtegaVTSCHER MHMISCHER [id number] 11:30:00 23:59:59 Ab 04 [place] 2019-11-09 2019-11-09 Outpatient MHIE MHIE [id number] [facility] 11:30:00 11:30:00 04 baldemar [place] 2019-11-09 2019-11-09 Outpatient MHIE MHIE [id number] [facility]oria 11:30:00 11:30:00 04 baldemar [place] 2019-09-19 2019-09-20 Outpatient nullFlavo MNA [id number] Memoria 18:00:00 04:59:59 r Neurology 02 l [place] 2019-09-19 2019-09-20 Outpatient nullFlavo MNA [id number] Memoria 18:00:00 04:59:59 r Neurology 02 l [place] 2019-09-19 2019-09-20 Outpatient nullFlavo MNA [id number] Memoria 18:00:00 04:59:59 r Neurology 02 baldemar [place] 2019-09-19 2019-09-19 Outpatient KEITH OrtegaSCHER MHMISCHER [id number] 13:00:00 23:59:59 Ab 02 [place] 2019-09-19 2019-09-19 Outpatient BINTA OrtegaMISCHER MHMISCHER [id number] 13:00:00 23:59:59 Ab 02 [place] 2019-09-19 2019-09-19 Outpatient MHIE MHIE [id number] [facility]oria 13:00:00 13:00:00 02 baldemar Gay 2019-09-19 2019-09-19 Outpatient MHIE MHIE [id number] [facility]oria 13:00:00 13:00:00 02 baldemar [place] 2019-08-23 2019-08-24 Outpatient nullFlavo MNA [id number] Memoria 18:30:00 04:59:59 [facility] [place] 2019-08-23 2019-08-24 Outpatient nullFlavo MNA [id number] Memoria 18:30:00 04:59:59 [facility] [place] 2019-08-23 2019-08-24 Outpatient nullFlavo MNA [id number] Memoria 18:30:00 04:59:59 [facility] [place] 2019-08-23 2019-08-23 Outpatient JANEE Ortega MISCHER [id number] 13:30:00 23:59:59 Ab 01 [place] 2019-08-23 2019-08-23 Outpatient BINTA OrtegaVTSCHZURDO MISCHER [id number] 13:30:00 23:59:59 Ab [place] 2019-08-23 2019-08-23 Outpatient MHIE MHIE [id number] [facility] 13:30:00 13:30:00 01 baldemar [place] 2019-08-23 2019-08-23 Outpatient MHIE MHIE [id number] [facility]oria 13:30:00 13:30:00 01 baldemar [place] 2019-07-18 2019-07-19 Outpatient nullFlavo MNA [id number] Memoria 14:15:00 04:59:59 r Neurology 00 l [place] 2019-07-18 2019-07-19 Outpatient nullFlavo MNA [id number] Memoria 14:15:00 04:59:59 r Neurology 00 l [place] 2019-07-18 2019-07-19 Outpatient nullFlavo MNA [id number] Memoria 14:15:00 04:59:59 r Neurology 00 l [place] 2019-07-18 2019-07-18 Outpatient [facility] [id number] 09:15:00 23:59:59 Ab 00 [place] 2019-07-18 2019-07-18 Outpatient JANEE Ortega [id number] 09:15:00 23:59:59 Ab 00 [place] 2019-07-18 2019-07-18 Outpatient KARINA COLLINS [id number] Memoria 09:15:00 09:15:00 00 baldem[place] 2019-07-18 2019-07-18 Outpatient KARINA COLLINS [id number] Memoria 09:15:00 09:15:00 00 l [place] Results Test Description Test Time Test Comments Results Result Comments Source INFECTION CONTROL PROFILE 2021-06-13 18:10:00 Test Item Value Reference Range Interpretation Comme nts HEPATITIS C RNA BY Negative Negative Negative: HCV RNA Not PCR-QUAL (test code = Detect edPerformed At: BN HCVRNAPCR) [facility] [id number] [place], [place] [id number] ra Danielle SALINAS Ph:[phone] AG HEPATITIS B SURFACE NON REACTIVE INDEX NonReactive (test code = HBSAG) AB HIV 1 2 (test code = NONREACTIVE INDEX NONREACTIVE WGI78JV) HIV 1/2 RAPID SCREEN NONREACTIVE NONREACTIVE Critic al result called to (test code = QFB37PVH) TED BROTHERS RN/Foreign ColonLAB.UN at 165 9 06/09/21Nmy arcos back resut and tech confir med it's correct? Y AG HIV1 P24 (test code NONREACTIVE NONREACTIVE = VDZ1V56) BASIC METABOLIC [id number] 07:47:00 Test Item Value Reference Range Interpretation [...] code = 9.0 mg/dL 8.0-10.5 N CA) [id number] 07:47:00 Test Item Value Reference Range Interpretation Comments MAGNESIUM (test code = MAG) 1.91 mg/dL 1.80-2.40 N CBC W/AUTO [id number] 07:13:00 Test Item Value Reference Range Interpretation [...] (test NO code = MDIFF) INFECTION CONTROL [id number] 17:05:00 Test Item Value Reference Range Interpretation Comments HEPATITIS C RNA BY PCR-QUAL (test code = HCVRNAPCR) AG HEPATITIS B NON REACTIVE INDEX NonReactive SURFACE (test code = HBSAG) AB HIV 1 2 (test NONREACTIVE INDEX NONREACTIVE code = ABP61QW) HIV 1/2 RAPID NONREACTIVE NONREACTIVE Critical resu lt SCREEN (test code called to KEHINDE = QHU21BWG) ANGELA BROTHERS/Riya brewer G.LAB.UN at 165 9 06/09/21Nurse read back resut and tech confirmed it's correct? Y AG HIV1 P24 (test NONREACTIVE NONREACTIVE code = PRO5E29) INFECTION CONTROL [id number] 17:01:00 Test Item Value Reference Range Interpretation Comments HEPATITIS C RNA BY PCR-QUAL (test code = HCVRNAPCR) AG HEPATITIS B INDEX NonReactive SURFACE (test code = HBSAG) AB HIV 1 2 (test code INDEX NONREACTIVE = LID63ZH) HIV 1/2 RAPID SCREEN NONREACTIVE NONREACTIVE Critic al result (test code = called to TED Longoria YHM17CHU) ANGELA BROTHERS/Riya brewer G.LAB.UN at 165 9 06/09/21Nurse r ead back resut and tech confirmed it's correct? Y AG HIV1 P24 (test NONREACTIVE NONREACTIVE code = WTB6B62) COVID 19 Asymptomatic IH [id number] 13:43:00 Test Item Value Reference Range Interpretation Comments COVID 19 Asymptomatic Negative Negative A nega tive result is IH AG (test code = presumpti ve and should COVNONPUIAG) be confirmedwit h an FDA authorized mole cular assay, if neces reggie forpatient toya gemluis armando.A positive result does not rule out co-inf [...] waivedcomplexit y tests. - XR CHEST 2 [id number] 13:06:00 [facility] : 1965 Sex: F FAX: Dennis Graves MD [phone] [place]: St: PRE FAX: Beverly Cartagena MD [phone] FAX: Katherine Villa Name: GINA MARIE [facility] : 1965 Age/S: 55/F [address] [place] [address] Bl Unit #: [id number] Loc: FLAVIO Rueda [address] Phys: Katherine Ma NP Acct: [id number] Dis Date: Status: PRESDC PHONE #: [phone] Exam Date: 06/08/2021 1143 FAX #: [phone] Reason: PREOP EXAMS: CPT CODE: [id number] XR CHEST 2 V 16478 Clinical Indication: Preoperative evaluation. Comparison: 03/08/2019. Impression: Chest, 2 views. No consolidation, pleural effusion, or pneumothorax. Cardiac silhouetteis of normal size. No acute osseous abnormality. Thoracic spinal stimulating device is in place. SL: [id number] at 1306 Reported and signed by: Brian Mendes M.D. CC: Dennis Chaves MD; Beverly Cartagena MD; Katherine Ma NP Technologist: RT Milly(R) Trnscrd Date/Time/By: 06/08/2021 (1718) : By: [email or web address] Orig Print D/T: S: 06/08/2021 (4385) PAGE 1 Signed ReportBASIC METABOLIC [id number] 11:59:00 Test Item Value Reference Range Interpretation [...] 8.9 mg/dL 8.0-10.5 N CA) CBC W/AUTO [id number] 11:55:00 Test Item Value Reference Range Interpretation [...] code NO = MDIFF) AFB CULTURE + [id number] 12:03:00 Test Item Value Reference Range Interpretation Comments CULTURE (BEAKER) (test No acid-fast bacilli code = 1095) isolated in 42 days AFB SMEAR (BEAKER) No acid fast bacilli (test code = 994) seen FUNGUS CULTURE + [id number] 18:46:00 Test Item Value Reference Range Interpretation Comments CULTURE (BEAKER) A 1+ Jo-Ann albicans (test code = 1095) FUNGUS SMEAR No fungi seen (BEAKER) (test code = 1406) MISCELLANEOUS LAB [id number] 07:43:00 Test Item Value Reference Range Interpretation Comments SCAN RESULT (test code = 8605197) CBC W/PLT COUNT & AUTO [id number] 11:31:00 Test Item Value Reference Range Interpretation [...] PERCENT (BEAKER) (test code = 2801) POCT-GLUCOSE [id number] 08:15:00 Test Item Value Reference Range Interpretation Comments POC-GLUCOSE METER 87 mg/dL 70-110 : TESTED A T [facility] 6720 (BEAKER) (test code = [place], 1538) [id number]: Catering Operations Manager/Techni theo ID = [id number] for GINNY PULIDO [id number] 08:08:00 Test Item Value Reference Range Interpretation Comments MAGNESIUM (BEAKER) 1.6 mg/dL 1.6-2.6 Specimen slightly (test code = 627) hemolyzed COMPREHENSIVE METABOLIC [id number] 08:08:00 Test Item Value Reference Range Interpretation [...] NOT APPLICABLE FOR DIALYSIS PATIEN TS. POCT-GLUCOSE [id number] 23:32:00 Test Item Value Reference Range Interpretation Comments POC-GLUCOSE METER 98 mg/dL 70-110 : TESTED A T [facility] 6720 (BEAKER) (test code = [place], 1538) 23394: Catering Operations Manager/Techni theo ID = [id number] for PATEL TEJADA POCT-GLUCOSE [id number] 17:52:00 Test Item Value Reference Range Interpretation Comments POC-GLUCOSE METER 88 mg/dL 70-110 : TESTED A T [facility] 6720 (BEAKER) (test code = LIV Do[place], 1538) 15055: Catering Operations Manager/Techni theo ID = [id number] for DOBB INS, ZAK POCT-GLUCOSE [id number] 11:53:00 Test Item Value Reference Range Interpretation Comments POC-GLUCOSE METER 161 mg/dL 70-110 H : TESTED A T [facility] 6720 (BEAKER) (test code = LIV Dozier [facility], 1538) 83040: Catering Operations Manager/Techni theo ID = [id number] for DO BBINS, ZAK BRONCHIAL CULTURE + GRAM [id number] 10:38:00 Test Item Value Reference Range Interpretation Comments CULTURE (BEAKER) (test See comment code = 1095) GRAM STAIN RESULT 2+ White blood cells (BEAKER) (test code = seen 1123) GRAM STAIN RESULT No organisms seen (BEAKER) (test code = 532286) 1+ YeastRAD, CHEST, 1 VIEW, NON [id number] 08:59:00Reason for exam:- >endotracheal intubationShould this be performed at the bedside?->YesFINAL REPORT Chest, one view History: Respiratory failure Comparison: 10/13/2019 Findings:Moderate bilateral interstitial opacities, similar to previous examination. This could represent atypical infectious process or pulmonary edema. Normal size heart. No pleural effusion or pneum othorax. Postsurgical changes of recent open reduction/internal fixation of the left clavicle. Impression:No significant interval change. Signed: Jerrell Silva MDReport Verified Date/Time: 10/14/201908:59:12 Reading Location: [address] Transitional Reading Room [id number] 08:38:00 Test Item Value Reference Range Interpretation Comments MAGNESIUM (BEAKER) 2.0 mg/dL 1.6-2.6 Specimen slightly (test code = 627) hemolyzed COMPREHENSIVE METABOLIC [id number] 08:38:00 Test Item Value Reference Range Interpretation [...] PATIEN TS. CBC W/PLT COUNT & AUTO [id number] 08:23:00 Test Item Value Reference Range Interpretation [...] PERCENT (BEAKER) (test code = 2801) POCT-GLUCOSE [id number] 07:07:00 Test Item Value Reference Range Interpretation Comments POC-GLUCOSE METER 84 mg/dL 70-110 : TESTED A T [facility] 6720 (BEAKER) (test code = [place], 1538) [id number]: Catering Operations Manager/Techni theo ID = [id number] for Will ia, Kamille BLOOD GAS, [id number] 04:38:00 Test Item Value Reference Range Interpretation [...] (test code = 1819) 36.0 % POCT-GLUCOSE [id number] 01:19:00 Test Item Value Reference Range Interpretation Comments POC-GLUCOSE METER 152 mg/dL 70-110 H : TESTED A T [facility] 6720 (BEAKER) (test code = [facility], 153) 24589: Catering Operations Manager/Techni theo ID = [id number] for Weston grubbs, Kamille BLOOD [id number] 19:01:00 Test Item Value Reference Range Interpretation Comments CULTURE (BEAKER) (test No growth in 5 days code = 1095) POCT-GLUCOSE [id number] 18:11:00 Test Item Value Reference Range Interpretation Comments POC-GLUCOSE METER 82 mg/dL 70-110 : TESTED A T [facility] 6720 (BEAKER) (test code = [facility] [employer] [facility], 153) [id number]: Catering Operations Manager/Techni theo ID = [id number] for DOBB INS, ZAK POCT-GLUCOSE [id number] 12:34:00 Test Item Value Reference Range Interpretation Comments POC-GLUCOSE METER 87 mg/dL 70-110 : TESTED A T [facility] 6720 (BEAKER) (test code = [facility] [employer] [facility], 153) [id number]: Catering Operations Manager/Techni theo ID = [id number] for SAND ERS, GIDEON CBC W/PLT COUNT & AUTO [id number] 09:13:00 Test Item Value Reference Range Interpretation [...] 0-1 PERCENT (BEAKER) (test code = 2801) [id number] 06:55:00 Test Item Value Reference Range Interpretation Comments MAGNESIUM (BEAKER) (test code = 1.8 mg/dL 1.6-2.6 627) COMPREHENSIVE METABOLIC [id number] 06:55:00 Test Item Value Reference Range Interpretation [...] APPLICABLE FOR DIALYSIS PATIEN TS. BLOOD GAS, [id number] 06:41:00 Test Item Value Reference Range Interpretation [...] 28.0 % RAD, CHEST, 1 VIEW, NON [id number] 04:40:00Reason for exam:->endotracheal intubationShould this be performed at the bedside?->YesFINAL REPORT RAD, CHEST, 1 VIEW, NON DEPT INDICATION: endotracheal intubation CO MPARISON: Prior day's exam FINDINGS: Portable frontal view of the chest. IMPRESSION: Support Lines: Interval extubation and removal of the previously seen enteric tube. Unchanged positioning of the spinal cord stimulator leads overlying the thoracic spine.Lungs and pleura: Unchanged airspace and pleural opacities. No pneumothorax.Heart and mediastinum: Stable contours. Additional findings: Stable surgical changes of the left clavicle.. Signed: Carolynn Rod[facility] Verified Date/Time: 10/13/2019 04:40:52 POCT-GLUCOSE METER 2019-10-13 00:24:00 Test Item Value Reference Range Interpretation Comments POC-GLUCOSE METER 107 mg/dL 70-110 : TESTED A T [facility] 6720 (BEAKER) (test code = [facility], 1538) 07751: Catering Operations Manager/Techni theo ID = [id number] for Dianna Wetzel RAD, MANDIBLE, MIN 4 [id number] 17:22:00Reason for exam:->Liver Transplant EvaluationShould this be [...] Villarreal Verified Date/Time: 10/12/2019 17:22:01 Reading Location: [facility] Reading Room POCT-GLUCOSE [id number] 12:42:00 Test Item Value Reference Range Interpretation Comments POC-GLUCOSE METER 119 mg/dL 70-110 H : TESTED A T [facility] 6720 (BEAKER) (test code = [place], 1538) 37344: Catering Operations Manager/Techni theo ID = [id number] for Tyler del toro RAD, CHEST, 1 VIEW, NON [id number] 09:14:00Reason for exam:->endotracheal intubationShould this be performed at the bedside?->YesFINAL REPORT RAD, CHEST, 1 VIEW, NON DEPT INDICATION: endotracheal intubation CO MPARISON: Prior day's exam FINDINGS: Portable frontal view of the chest. IMPRESSION: Limited by underpenetration.Support Lines: Stable. Lungs and pleura: Coarsened interstitial markings unchanged from the prior examination. No new consolidation or effusion. No pneumothorax.Heart and mediastinum: Stable contours. Stable positioning of spinal stimulator hardware.Additional findings: None. Signed: JR Gramajo Robert MDReport Verified Date/Time: 10/12/2019 09:14:48 Reading Location: [facility] Radiology Reading Room [id number] 04:39:00 Test Item Value Reference Range Interpretation Comments MAGNESIUM (BEAKER) (test code = 1.8 mg/dL 1.6-2.6 627) COMPREHENSIVE METABOLIC [id number] 04:39:00 Test Item Value Reference Range Interpretation [...] PATIEN TS. CBC W/PLT COUNT & AUTO [id number] 04:18:00 Test Item Value Reference Range Interpretation [...] (BEAKER) (test code = 2801) BLOOD GAS, [id number] 04:17:00 Test Item Value Reference Range Interpretation [...] (test code = 1819) 30.0 % SPIN/CONCENTRATION [id number] 01:15:00 Test Item Value Reference Range Interpretation Comments CONCENTRATION CHARGED (BEAKER) (test Done code = 2657) BODY FLUID CELL COUNT WITH [id number] 18:00:00 Test Item Value Reference Range Interpretation [...] (test code = 2873) EEG AWAKE AND [id number] 17:00:00Reason for exam:->acute encephalopathyShould this be performed at the bedside?->YesDate(s) of EE10/11/2019 DATE OF REPORT: 10/11/2019ACC: [id number] Number: [id number] Location: Inpatient ICUStart time: 10/11/2019 16:09Stop time: 10/11/2019 16:31ICD-10: R41.82 CPT Code: 03401 HISTORY: 54 y.o. female with hypertension, chronic back pain, who presented with acute liver failure and persistent encephalopathy. MEDICATIONS THAT COULD AFFECT EEG: Fentanyl, Propofol, Hydromorphone, Dexmedetomidine, Topiramate, Famotidine TECHNICAL SUMMARY: This is a digital video-EEG recorded with 32 input channels reviewed with bipolar [...] background attenuation. EEG is nonreactive to external st imulation. No state changes were seen. SIGNIFICANT VIDEO EVENTS: None SIGNIFICANT ELECTROCARDIOGRAM EVENTS: None HV: Hyperventilation was not performed. PHOTIC STIMULATION: Photic stimulation was done from 1-33 Hz; no photic driving was seen; photoparoxysmal responses were absent. IMPRESSION: AbnormalEEG in Coma: 1) Generalized slowing of background rhythms, moderately severe. CLINICAL CORRELATION: Generalized slowing as seen in this record is consistent with an etiology non-specific moderately severe encephalopathy. An EEG without epileptiform discharges does not exclude the possibility of epileps y. If the clinical suspicion of epilepsy remains, consider additional EEG recordings. Silvino Riley MDNeurophysiology Fellow Attending note: I reviewed this EEG study and I agree with the details of this report.Jermaine Walton MD, PhDAttending NeurophysiologistCHI [place], [place] SPUTUM CULTURE + GRAM [id number] 15:43:00 Test Item Value Reference Range Interpretation Comments CULTURE (BEAKER) 4+ Normal respiratory (test code = 1095) candy present GRAM STAIN RESULT 2+ White blood cells (BEAKER) (test code = seen 1123) GRAM STAIN RESULT 0-5 epithelial cells (BEAKER) (test code = 42820) GRAM STAIN RESULT 1+ gram positive rods (BEAKER) (test code = 30486) GRAM STAIN RESULT <1+ yeast (BEAKER) (test code = 481035) MISCELLANEOUS LAB [id number] 08:34:00 Test Item Value Reference Range Interpretation Comments SCAN RESULT (test code = 4830562) RAD, CHEST, 1 VIEW, NON [id number] 07:51:00Reason for exam:->endotracheal intubationShould this be performed at the bedside?->YesFINAL REPORT RAD, CHEST, 1 VIEW, NON DEPT INDICATION: endotracheal intubation CO MPARISON: Prior day's exam FINDINGS: Portable frontal view [...] Spangler Verified Date/Time: 10/11/2019 07:51:10 Reading Location: [facility] Radiology Reading Room BLOOD [id number] 07:00:00 Test Item Value Reference Range Interpretation Comments CULTURE (BEAKER) (test No growth in 5 days code = 1095) BLOOD [id number] 07:00:00 Test Item Value Reference Range Interpretation Comments CULTURE (BEAKER) (test No growth in 5 days code = 1095) POCT-GLUCOSE [id number] 05:51:00 Test Item Value Reference Range Interpretation Comments POC-GLUCOSE METER 103 mg/dL 70-110 : [facility] (BEAKER) (test code = [facility], 1538) 54339: Catering Operations Manager/Techni theo ID = [id number] for SHARI BAJWA BLOOD GAS, [id number] 04:55:00 Test Item Value Reference Range Interpretation [...] (BEAKER) (test code = 1819) 40.0 % [id number] 04:46:00 Test Item Value Reference Range Interpretation Comments MAGNESIUM (BEAKER) (test code = 2.2 mg/dL 1.6-2.6 627) COMPREHENSIVE METABOLIC [id number] 04:46:00 Test Item Value Reference Range Interpretation [...] PATIEN TS. CBC W/PLT COUNT & AUTO [id number] 04:11:00 Test Item Value Reference Range Interpretation [...] PERCENT (BEAKER) (test code = 2801) POCT-GLUCOSE [id number] 23:55:00 Test Item Value Reference Range Interpretation Comments POC-GLUCOSE METER 118 mg/dL 70-110 H : TESTED A T [facility] 6720 (BEAKER) (test code = [facility], 1538) 11065: Catering Operations Manager/Techni theo ID = [id number] for SHARI BAJWA POCT-GLUCOSE [id number] 17:40:00 Test Item Value Reference Range Interpretation Comments POC-GLUCOSE METER 142 mg/dL 70-110 H : TESTED A T [facility] 6720 (JASON) (test code = [facility], 1538) 47661: Catering Operations Manager/Techni theo ID = [id number] for Gr Jackie yoonara POCT-GLUCOSE [id number] 12:30:00 Test Item Value Reference Range Interpretation Comments POC-GLUCOSE METER 114 mg/dL 70-110 H : TESTED A T [facility] 6720 (JASON) (test code = [facility], 1538) 83809: Catering Operations Manager/Techni theo ID = [id number] for Karely Bautista HIV-1 PCR, [id number] 11:07:00 Test Item Value Reference Range Interpretation Comments HIV-1 RESULT HIV RNA not detected HIV RNA not detected COMPONENT (JASON) (test code = 2703) This test uses a Real-Time Polymerase Chain Reaction (RT-PCR) methodology to detect a highly conserved region of the HIV-1 gag gene and was performed using the CHRISTINA AmpliPrep/CHRISTINA TaqMan HIV-1 test kit version 2.0 ([employer]Reportable range for this assay is 20 - 10,000,000 copies per mL (1.3 - 7.0 Log copies/mL).[id number] 08:14:00 Test Item Value Reference Range Interpretation Comments T3 TOTAL (JASON) (test code = 656) 36 ng/dL 48-159 L RAD, CHEST, 1 VIEW, NON [id number] 07:15:00Reason for exam:->endotracheal intubationShould this be performed at the bedside?->YesFINAL REPORT RAD, CHEST, 1 VIEW, NON DEPT INDICATION: endotracheal intubation CO MPARISON: Prior day's exam FINDINGS: Portable frontal view of the chest. IMPRESSION: Limited by underpenetration.Support Lines: Stable. Lungs and pleura: Coarsened interstitial markings unchanged from prior. No new consolidation or effusion. No pneumothorax.Heart and mediastinum: Stable contours. Additional findings: None. Signed: JR Rox, Tyler TRIVEDIeport Verified Date/Time: 10/10/2019 07:15:28 [facility] POCT- GLUCOSE [id number] 06:26:00 Test Item Value Reference Range Interpretation Comments POC-GLUCOSE METER 103 mg/dL 70-110 : TESTED A T [facility] 6720 (BEAKER) (test code = [place], 1538) 91617: Catering Operations Manager/Techni theo ID = [id number] for SUSIE TRUONG [id number] 05:32:00 Test Item Value Reference Range Interpretation [...] within 95-100% range.CBC W/PLT COUNT & AUTO [id number] 05:23:00 Test Item Value Reference Range Interpretation [...] 0-1 PERCENT (BEAKER) (test code = 2801) [id number] 05:10:00 Test Item Value Reference Range Interpretation [...] thrombosis and/or pulmonary embolus.HIGH RISK: Target INR is 2.5-3.5 for patients wiht mechanical heart valves.[id number] 05:10:00 Test Item Value Reference Range Interpretation Comments PHOSPHORUS (BEAKER) (test code = 3.3 mg/dL 2.3-4.7 604) [id number] 05:10:00 Test Item Value Reference Range Interpretation Comments MAGNESIUM (BEAKER) (test code = 2.3 mg/dL 1.6-2.6 627) COMPREHENSIVE METABOLIC [id number] 05:10:00 Test Item Value Reference Range Interpretation [...] S NOT APPLICABLE FOR DIALYSIS PATIEN TS. [id number] 05:08:00 Test Item Value Reference Range Interpretation Comments FIBRINOGEN LEVEL (BEAKER) (test 275 mg/dl 225-434 code = 658) PROTHROMBIN [id number] 05:07:00 Test Item Value Reference Range Interpretation Comments PROTIME (BEAKER) (test code = 17.9 seconds 11.9-14.2 H 759) INR (BEAKER) (test code = 370) 1.6 <=5.9 Effective 04/25/2019: PT Reference Range ChangeNew: 11.9-14.2 Previous: 11.7- 14.7RECOMMENDED COUMADIN/WARFARIN INR THERAPY RANGESSTANDARD DOSE: 2.0-3.0 Includes: PROPHYLAXIS for venous thrombosis, systemic embolization; TREATMENT for venous thrombosis and/or pulmonary embolus.HIGH RISK: Target INR is 2.5-3.5 for patients wiht mechanical heart valves.CALCIUM, [id number] 04:59:00 Test Item Value Reference Range Interpretation Comments CALCIUM IONIZED (BEAKER) (test 1.20 mmol/L 1.12-1.27 code = 698) PH, BLOOD (BEAKER) (test code = 7.37 1810) BLOOD GAS, [id number] 04:55:00 Test Item Value Reference Range Interpretation [...] (test code = 1819) 40.0 % POCT-GLUCOSE [id number] 00:46:00 Test Item Value Reference Range Interpretation Comments POC-GLUCOSE METER 90 mg/dL 70-110 : TESTED A T [facility] 6720 (BEAKER) (test code = [place], 1538) 80774: Catering Operations Manager/Techni theo ID = [id number] for SUSIE LISA MRSA [id number] 19:33:00 Test Item Value Reference Range Interpretation Comments CULTURE (BEAKER) (test code No MRSA isolated = 1095) PROTHROMBIN [id number] 18:00:00 Test Item Value Reference Range Interpretation Comments PROTIME (BEAKER) (test code = 19.8 seconds 11.9-14.2 H 759) INR (BEAKER) (test code = 370) 1.8 <=5.9 Effective 04/25/2019: PT Reference Range ChangeNew: 11.9-14.2 Previous: 11.7- 14.7RECOMMENDED COUMADIN/WARFARIN INR THERAPY RANGESSTANDARD DOSE: 2.0-3.0 Includes: PROPHYLAXIS for venous thrombosis, systemic embolization; TREATMENT for venous thrombosis and/or pulmonary embolus.HIGH RISK: Target INR is 2.5-3.5 for patients wiht mechanical heart valves.PT/[id number] 18:00:00 Test Item Value Reference Range Interpretation [...] thrombosis and/or pulmonary embolus.HIGH RISK: Target INR is 2.5-3.5 for patients wiht mechanical heart valves.[id number] 17:55:00 Test Item Value Reference Range Interpretation Comments MAGNESIUM (BEAKER) (test code = 1.9 mg/dL 1.6-2.6 627) BASIC METABOLIC [id number] 17:55:00 Test Item Value Reference Range Interpretation [...] APPLICABLE FOR DIALYSIS PATIEN TS. CYTOMEGALOVIRUS ANTIBODY, [id number] 16:41:00 Test Item Value Reference Range Interpretation Comments CYTOMEGALOVIRUS, IGG (BEAKER) Negative Negative, Equivocal (test code = 3429) CMV IgG Result Interpretation: </= 0.8 Al Negative 0.9-1.0 Al Equivocal >/=1.1 Al PositiveCYTOMEGALOVIRUS ANTIBODY, [id number] 16:41:00 Test Item Value Reference Range Interpretation Comments CYTOMEGALOVIRUS IGM ANTIBODY Negative Negative, Equivocal (BEAKER) (test code = 3437) CMV IgM Result Interpretation: </= 0.8 Al Negative 0.9-1.0 Al Equivocal >/= 1.1 Al PositiveEBV ANTIBODY, [id number] 16:41:00 Test Item Value Reference Range Interpretation Comments JAMA ROUSE VIRAL CAPSID Positive Negative, Equivocal A ANTIGEN IGG (BEAKER) (test code = 3415) Jama Rouse Viral Capsid Antigen IgG Result Interpretation: </= 0.8 Al Negative 0.9-1.0 Al Equivocal >/= 1.1 Al PositiveEBV ANTIBODY, [id number] 16:41:00 Test Item Value Reference Range Interpretation Comments JAMA ROUSE VIRAL CAPSID Positive Negative, Equivocal A ANTIGEN IGM (BEAKER) (test code = 3418) Jama Rouse Viral Capsid Antigen IgM Result Interpretation: </= 0.8 Al Negative 0.9-1.0 Al Equivocal >/= 1.1 Al PositivePOCT-GLUCOSE [id number] 16:15:00 Test Item Value Reference Range Interpretation Comments POC-GLUCOSE METER 107 mg/dL 70-110 : TESTED A T [facility] 6720 (BEAKER) (test code = [place], 1538) 85142: Catering Operations Manager/Techni theo ID = [id number] for Karely Bautista CT, BRAIN, WITHOUT [id number] 14:07:00Patient with decerebrate posturing, r/o herniationFINAL REPORT CT, BRAIN, WITHOUT CONTRAST INDICATION: Altered mental status TECHNIQUE: Noncontrast axial imaging was obtained from the vertex to the skull base. Axial images were reconstructed using a bone algorithm. DOSE REDUCTION: Dose modulation, iterative reconstruction, and/orweight-based adjustment of the mA/kV was utilized to reduce the radiation dose to as low as reasonably achievable. COMPARISON: None. FINDINGS: Intracranial: Mild generalized cerebral atrophy with ex vacuo dilatation of the ventricular system proportionate to sulci. Scattered foci of hypoattenuation within the periventricular and subcortical white matter are a nonspecific finding commonly attributed to chronic small vessel ischemic disease. No intracranial hemorrhage or abnormal extra-axial collection. No evidence of acute territorial infarct. No mass effect. No hydrocephalus. Osseous structures: Nofracture. No suspicious lesion. Paranasal sinuses and mastoid air cells: Marked mucosal thickening with air-fluid level in the right sphenoid sinus. Mastoids are clear. Orbital contents: Globes are intact. IMPRESSION: No acute intracranial hemorrhage or territorial infarct. If there is persistent clinical concern for intracranial pathology, MR examination is recommended for further characterization. Signed: Shari Perry MDReport Verified Date/Time: 10/09/2019 14:07:57 SPUTUM CULTURE + GRAM [id number] 12:59:00 Test Item Value Reference Range Interpretation Comments CULTURE (BEAKER) See comment (test code = 1095) GRAM STAIN RESULT 1+ White blood cells (BEAKER) (test code = seen 1123) GRAM STAIN RESULT 0-5 epithelial cells (BEAKER) (test code = 705245) GRAM STAIN RESULT No organisms seen (BEAKER) (test code = 464033) 2+ YeastNo Normal respiratory candy presentPOCT-GLUCOSE [id number] 12:22:00 Test Item Value Reference Range Interpretation Comments POC-GLUCOSE METER 168 mg/dL 70-110 H : TESTED A T [facility] 6720 (BEAKER) (test code = [place], 1538) 10782: Catering Operations Manager/Techni theo ID = [id number] for Gr ant, Tieara POCT-GLUCOSE [id number] 10:04:00 Test Item Value Reference Range Interpretation Comments POC-GLUCOSE METER 101 mg/dL 70-110 : TESTED A T [facility] 6720 (BEAKER) (test code = [place], 1538) 98231: Catering Operations Manager/Techni theo ID = [id number] for Gr ant, Tieara BILIRUBIN, [id number] 09:44:00 Test Item Value Reference Range Interpretation Comments BILIRUBIN DIRECT (BEAKER) (test 1.5 mg/dL 0.1-0.5 H code = 706) [id number] 07:19:00 Test Item Value Reference Range Interpretation Comments PROCALCITONIN (BEAKER) (test code 1.48 ng/mL <0.05 H = 3036) SEPSIS RISK (ng/mL)Low: 0.05-0.50Intermediate: 0.51-2.00High: >=2.01D-DIMER 2019-10-09 05:26:00 Test Item Value Reference Range Interpretation [...] within 95-100% range.RAD, CHEST, 1 VIEW, NON [id number] 05:16:00Reason for exam:->endotracheal intubationShould this be performed at the bedside?->YesFINAL REPORT RAD, CHEST, 1 VIEW, NON DEPT INDICATION: endotracheal intubation CO MPARISON: Exam from 19 hours prior FINDINGS: Portable frontal view of the chest. IMPRESSION: SupportLines: Endotracheal tube tip is 1.8 cm above the ganesh. Stable enteric tube and right IJ central venous catheter.Lungs and pleura: Unchanged right greater than left scattered airspace and interstitialopacities suggestive of pulmonary edema. No pleural effusion. No pneumothorax.Heart and mediastinum:Stable contours. Additional findings: None. Signed: Aurelia Cummins MDReport Verified Date/Time: 10/09/2019 05:16:08 CALCIUM, [id number] 05:05:00 Test Item Value Reference Range Interpretation Comments CALCIUM IONIZED (BEAKER) (test 1.14 mmol/L 1.12-1.27 code = 698) PH, BLOOD (BEAKER) (test code = 7.49 1810) BLOOD GAS, [id number] 05:04:00 Test Item Value Reference Range Interpretation [...] 40.0 % CBC W/PLT COUNT & AUTO [id number] 04:51:00 Test Item Value Reference Range Interpretation [...] (BEAKER) (test code = 2801) VANCOMYCIN LEVEL, [id number] 04:26:00 Test Item Value Reference Range Interpretation Comments VANCOMYCIN TROUGH (BEAKER) (test 7.0 ug/mL 10.0-20.0 L code = 522) [id number] 04:21:00 Test Item Value Reference Range Interpretation Comments PHOSPHORUS (BEAKER) (test code = 3.2 mg/dL 2.3-4.7 604) [id number] 04:21:00 Test Item Value Reference Range Interpretation Comments MAGNESIUM (BEAKER) (test code = 1.9 mg/dL 1.6-2.6 627) COMPREHENSIVE METABOLIC [id number] 04:21:00 Test Item Value Reference Range Interpretation [...] S NOT APPLICABLE FOR DIALYSIS PATIEN TS. [id number] 04:19:00 Test Item Value Reference Range Interpretation Comments FIBRINOGEN LEVEL (BEAKER) (test 267 mg/dl 225-434 code = 658) [id number] 04:14:00 Test Item Value Reference Range Interpretation [...] thrombosis and/or pulmonary embolus.HIGH RISK: Target INR is 2.5-3.5 for patients wiht mechanical heart valves.PROTHROMBIN TIME/[id number] 04:13:00 Test Item Value Reference Range Interpretation Comments PROTIME (BEAKER) (test code = 21.3 seconds 11.9-14.2 H 759) INR (BEAKER) (test code = 370) 1.9 <=5.9 Effective 04/25/2019: PT Reference Range ChangeNew: 11.9-14.2 Previous: 11.7- 14.7RECOMMENDED COUMADIN/WARFARIN INR THERAPY RANGESSTANDARD DOSE: 2.0-3.0 Includes: PROPHYLAXIS for venous thrombosis, systemic embolization; TREATMENT for venous thrombosis and/or pulmonary embolus.HIGH RISK: Target INR is 2.5-3.5 for patients wiht mechanical heart valves.POCT-GLUCOSE [id number] 01:04:00 Test Item Value Reference Range Interpretation Comments POC-GLUCOSE METER 143 mg/dL 70-110 H : TESTED A T [facility] 6720 (RELEASEIF) (test code = [place], 1538) [id number]: Catering Operations Manager/Techni theo ID = [id number] for SUSIE TRUONG POCT-GLUCOSE [id number] 20:20:00 Test Item Value Reference Range Interpretation Comments POC-GLUCOSE METER 145 mg/dL 70-110 H : TESTED A T [facility] 6720 (RELEASEIF) (test code = [place], 1538) 81322: Catering Operations Manager/Techni theo ID = [id number] for SUSIE TRUONG POCT-GLUCOSE [id number] 16:43:00 Test Item Value Reference Range Interpretation Comments POC-GLUCOSE METER 164 mg/dL 70-110 H : TESTED A T [facility] 6720 (SHANNONAKER) (test code = LIV Dozier [facility], 1538) 28531: Catering Operations Manager/Techni theo ID = [id number] for Karely Bautista CMV PCR, [id number] 15:47:00 Test Item Value Reference Range Interpretation [...] management of antiviral therapy. For treatment of CMV infection due to reactivation in transplant recipients, a threshold between 4,000 and 5,000 copies/mLis suggested. For treatment of primary CMV infection, a lower threshold can be used.CMV infection may also be monitored using weekly serial measurements. Serial measurements of CMV DNA viral load can be evaluated by identifying a 10-fold change, as [...] and its performance characteristics determined by the [facility] Pathol ogy Department, Section of Molecular Pathology. It has not been cleared or approved by the U.S. Foodand Drug Administration (FDA), since FDA approval is not required for clinical use of the test. Validation was done as required by The Clinical Laboratory Improvement Amendments of 1988.[id number] 15:29:00 Test Item Value Reference Range Interpretation Comments PHOSPHORUS (BEAKER) (test code = 3.5 mg/dL 2.3-4.7 604) [id number] 15:29:00 Test Item Value Reference Range Interpretation Comments MAGNESIUM (BEAKER) (test code = 2.1 mg/dL 1.6-2.6 627) [id number] 15:01:00 Test Item Value Reference Range Interpretation Comments PHOSPHORUS (BEAKER) (test code = 2.1 mg/dL 2.3-4.7 L 604) [id number] 15:01:00 Test Item Value Reference Range Interpretation Comments MAGNESIUM (BEAKER) (test code = 2.0 mg/dL 1.6-2.6 627) BASIC METABOLIC [id number] 15:01:00 Test Item Value Reference Range Interpretation [...] APPLICABLE FOR DIALYSIS PATIEN TS. Specimen slightly ictericPT/[id number] 14:53:00 Test Item Value Reference Range Interpretation [...] thrombosis and/or pulmonary embolus.HIGH RISK: Target INR is 2.5-3.5 for patients wiht mechanical heart valves.[id number] 14:38:00 Test Item Value Reference Range Interpretation Comments AMMONIA (BEAKER) (test code = 348) 34 mol/L 18-72 RUBELLA ANTIBODY, [id number] 14:20:00 Test Item Value Reference Range Interpretation Comments RUBELLA IGG QUANTITATION (BEAKER) 1.0 IU/mL <8.0 (test code = 572) Rubella IgG Result Interpretation: </= 7.0 IU/mL Negative - Presumed non- immune 8.0 - 9.9 IU/mL Equivocal >= 10.0 IU/mL Positive - Presumed immune VARICELLA ZOSTER ANTIBODY, [id number] 13:49:00 Test Item Value Reference Range Interpretation Comments VARICELLA ZOSTER IGG (AL) (BEAKER) 4.8 (test code = 3197) VARICELLA ZOSTER RESULT INTERPRETATIONS: <=0.8 Al Nonreactive: Presumed non- immune to VZV 0.9-1.0Al Equivocal >=1.1 Al Reactive: Presumed immune to VZV CRYPTOCOCCAL [id number] 13:33:00 Test Item Value Reference Range Interpretation Comments CRYPTOCOCCAL ANTIGEN, SERUM Negative Negative, Interference (BEAKER) (test code = 1828) FACTOR 5 ACTIVITY (BLEEDING RISK)2019-10-08 13:03:00 Test Item Value Reference Range Interpretation Comments FACTOR V ACTIVITY (BEAKER) (test code = 9.0 % 60.0-150.0 L 665) CBC W/PLT COUNT & AUTO [id number] 12:13:00 Test Item Value Reference Range Interpretation [...] PERCENT (BEAKER) (test code = 2801) POCT-GLUCOSE [id number] 11:22:00 Test Item Value Reference Range Interpretation Comments POC-GLUCOSE METER 184 mg/dL 70-110 H : TESTED A T [facility] 6720 (BEAKER) (test code = [place], 1538) [id number]: Catering Operations Manager/Techni theo ID = [id number] for Kirt yoonJackieguero ANTI-NUCLEAR ANTIBODY (JOSE ARMANDO)2019-10-08 10:44:00 Test Item Value Reference Range Interpretation Comments ANTI-NUCLEAR ANTIBODY (JOSE ARMANDO) (BEAKER) Negative Negative (test code = 418) Test performed by IFA method.Test performed by IFA method.[id number] 09:26:00 Test Item Value Reference Range Interpretation Comments PHOSPHORUS (BEAKER) (test code = 2.9 mg/dL 2.3-4.7 604) [id number] 09:26:00 Test Item Value Reference Range Interpretation Comments MAGNESIUM (BEAKER) (test code = 2.0 mg/dL 1.6-2.6 627) BASIC METABOLIC [id number] 09:26:00 Test Item Value Reference Range Interpretation [...] Specimen slightly ictericRAD, CHEST, 1 VIEW, NON [id number] 09:14:00Reason for exam:->endotracheal intubationShould this be performed at the bedside?->YesFINAL REPORT RAD, CHEST, 1 VIEW, NON DEPT INDICATION: endotracheal intubation COMPARISON: Prior day's exam FINDINGS: Portable frontal view of the chest. IMPRESSION: Support Lines: Stable. Lungs and pleura: Improved interstitial congestion. No consolidation or effusion. No pneumothorax.Heart and mediastinum: Stable contours. Additional findings: None. Signed: JR Rox, Tyler Aníbal Verified Date/Time: 10/08/2019 09:14:39 Reading Location: [facility] Radiology Reading Room -[id number] 06:25:00 Test Item Value Reference Range Interpretation [...] of thrombosis is within 95-100% range. PROTHROMBIN [id number] 05:32:00 Test Item Value Reference Range Interpretation Comments PROTIME (BEAKER) (test code = 23.4 seconds 11.9-14.2 H 759) INR (BEAKER) (test code = 370) 2.2 <=5.9 Effective 04/25/2019: PT Reference Range ChangeNew: 11.9-14.2 Previous: 11.7- 14.7RECOMMENDED COUMADIN/WARFARIN INR THERAPY RANGESSTANDARD DOSE: 2.0-3.0 Includes: PROPHYLAXIS for venous thrombosis, systemic embolization; TREATMENT for venous thrombosis and/or pulmonary embolus.HIGH RISK: Target INR is 2.5-3.5 for patients wiht mechanical heart valves.[id number] 05:32:00 Test Item Value Reference Range Interpretation Comments FIBRINOGEN LEVEL (BEAKER) (test 200 mg/dl 225-434 L code = 658) [id number] 05:32:00 Test Item Value Reference Range Interpretation [...] thrombosis and/or pulmonary embolus.HIGH RISK: Target INR is 2.5-3.5 for patients wiht mechanical heart valves.COMPREHENSIVE METABOLIC [...] Specimen slightly ictericCBC W/PLT COUNT & AUTO [id number] 05:24:00 Test Item Value Reference Range Interpretation [...] (BEAKER) (test code = 2801) LACTIC ACID, [id number] 05:16:00 Test Item Value Reference Range Interpretation Comments LACTATE BLOOD VENOUS (2) (BEAKER) 1.8 mmol/L 0.5-2.2 (test code = 2872) [id number] 23:51:00 Test Item Value Reference Range Interpretation Comments PHOSPHORUS (BEAKER) (test code = 4.4 mg/dL 2.3-4.7 604) [id number] 23:51:00 Test Item Value Reference Range Interpretation Comments MAGNESIUM (BEAKER) (test code = 2.2 mg/dL 1.6-2.6 627) BASIC METABOLIC [id number] 23:51:00 Test Item Value Reference Range Interpretation [...] DIALYSIS PATIEN TS. Specimen slightly ictericBLOOD GAS, [id number] 23:37:00 Test Item Value Reference Range Interpretation [...] 50.0 % CBC W/PLT COUNT & AUTO [id number] 20:12:00 Test Item Value Reference Range Interpretation [...] PERCENT (BEAKER) (test code = 2801) POCT-GLUCOSE [id number] 20:01:00 Test Item Value Reference Range Interpretation Comments POC-GLUCOSE METER 143 mg/dL 70-110 H : TESTED A T [facility] 6720 (BEAKER) (test code = [facility] [employer] [facility], 1538) [id number]: Catering Operations Manager/Techni theo ID = [id number] for Liban Arnett BLOOD GAS, [id number] 19:54:00 Test Item Value Reference Range Interpretation [...] (test code = 1819) 24.0 % POCT-GLUCOSE [id number] 19:01:00 Test Item Value Reference Range Interpretation Comments POC-GLUCOSE METER 155 mg/dL 70-110 H : TESTED A T [facility] 6720 (BEAKER) (test code = [facility] [employer] [place], 1538) [id number]: Catering Operations Manager/Techni theo ID = [id number] for SA NDERS, GIDEON HEPATOBILIARY [id number] 18:38:00Please do at bedside. Thank you.FINAL REPORT PROCEDURE: HEPATOBILIARY SCAN CPT CODE: 79038 INDICATION: abdominal pain PROTOCOL: 5.3 mCi of Tc-99m mebrofenin was injected intravenously. Images of the upper abdomenwere obtained for approximately 75 minutes after tracer injection. FINDINGS: Initial tracer uptake into the liver is physiological. Subsequent tracer clearance from the liver proceeds normally. There is good visualization of the extrahepatic biliary duct and the gallbladder, and the tracer appears appropriately in the small bowel. IMPRESSION: Normal hepatobiliary scan. Signed: Jeffery Alarcon MDReport Verified Date/Time: 10/07/2019 18:38:40 POCT-GLUCOSE [id number] 16:52:00 Test Item Value Reference Range Interpretation Comments POC-GLUCOSE METER 166 mg/dL 70-110 H : TESTED A T [facility] 6720 (BEAKER) (test code = [facility], 1538) [id number]: Catering Operations Manager/Techni theo ID = [id number] for GIDEON NUNEZ PT/[id number] 16:40:00 Test Item Value Reference Range Interpretation [...] thrombosis and/or pulmonary embolus.HIGH RISK: Target INR is 2.5-3.5 for patients wiht mechanical heart valves.[id number] 16:40:00 Test Item Value Reference Range Interpretation Comments FIBRINOGEN LEVEL (BEAKER) (test 156 mg/dl 225-434 L code = 658) PROTHROMBIN [id number] 16:39:00 Test Item Value Reference Range Interpretation Comments PROTIME (BEAKER) (test code = 24.8 seconds 11.9-14.2 H 759) INR (BEAKER) (test code = 370) 2.4 <=5.9 Effective 04/25/2019: PT Reference Range ChangeNew: 11.9-14.2 Previous: 11.7- 14.7RECOMMENDED COUMADIN/WARFARIN INR THERAPY RANGESSTANDARD DOSE: 2.0-3.0 Includes: PROPHYLAXIS for venous thrombosis, systemic embolization; TREATMENT for venous thrombosis and/or pulmonary embolus.HIGH RISK: Target INR is 2.5-3.5 for patients wiht mechanical heart valves.[id number] 16:36:00 Test Item Value Reference Range Interpretation Comments PHOSPHORUS (BEAKER) (test code = 1.8 mg/dL 2.3-4.7 L 604) [id number] 16:36:00 Test Item Value Reference Range Interpretation Comments MAGNESIUM (BEAKER) (test code = 2.5 mg/dL 1.6-2.6 627) BASIC METABOLIC [id number] 16:36:00 Test Item Value Reference Range Interpretation [...] APPLICABLE FOR DIALYSIS PATIEN TS. BLOOD GAS, [id number] 16:22:00 Test Item Value Reference Range Interpretation [...] 25.0 % CBC W/PLT COUNT & AUTO [id number] 12:44:00 Test Item Value Reference Range Interpretation [...] PERCENT (BEAKER) (test code = 2801) POCT-GLUCOSE [id number] 12:23:00 Test Item Value Reference Range Interpretation Comments POC-GLUCOSE METER 145 mg/dL 70-110 H : TESTED A T [facility] 6720 (BEAKER) (test code = [place], 1538) [id number]: Catering Operations Manager/Techni theo ID = [id number] for GIDEON NUNEZ [id number] 12:06:00 Test Item Value Reference Range Interpretation Comments T4 TOTAL (BEAKER) (test code = 895) 4.6 ug/dL 4.9-11.7 L [id number] 10:00:00 Test Item Value Reference Range Interpretation Comments PHOSPHORUS (BEAKER) (test code = 2.8 mg/dL 2.3-4.7 604) [id number] 10:00:00 Test Item Value Reference Range Interpretation Comments MAGNESIUM (BEAKER) (test code = 2.0 mg/dL 1.6-2.6 627) BASIC METABOLIC [id number] 10:00:00 Test Item Value Reference Range Interpretation [...] NOT APPLICABLE FOR DIALYSIS PATIEN TS. POCT-GLUCOSE [id number] 08:15:00 Test Item Value Reference Range Interpretation Comments POC-GLUCOSE METER 174 mg/dL 70-110 H : TESTED A T [facility] 6720 (BEAKER) (test code = [place], 1538) [id number]: Catering Operations Manager/Techni theo ID = [id number] for SA NDERS, GIDEON RAD, CHEST, 1 VIEW, NON [id number] 05:39:00Reason for exam:- >intubatedShould this be performed at the bedside?->YesFINAL REPORT RAD, CHEST, 1 VIEW, NON DEPT INDICATION: intubated COMPARISON: Prior day's exam FINDINGS: Portable frontal view of the chest. IMPRESSION: Support Lines: Stable. Lungs and pleura: Unchanged scattered interstitial and parenchymal opacities. No pleural effusion. No pneumo thorax.Heart and mediastinum: Stable contours. Additional findings: None. Signed: Aurelia Cummins MDReport Verified Date/Time: 10/07/2019 05:39:22 05:39 AMBLOOD GAS, [id number] 05:29:00 Test Item Value Reference Range Interpretation [...] (BEAKER) (test code = 1819) 40.0 % [id number] 05:07:00 Test Item Value Reference Range Interpretation [...] thrombosis is within 95-100% range. COMPREHENSIVE METABOLIC [id number] 04:59:00 Test Item Value Reference Range Interpretation [...] PATIEN TS. CBC W/PLT COUNT & AUTO [id number] 04:32:00 Test Item Value Reference Range Interpretation [...] H PERCENT (BEAKER) (test code = 2801) [id number] 04:30:00 Test Item Value Reference Range Interpretation Comments PHOSPHORUS (BEAKER) (test code = 3.1 mg/dL 2.3-4.7 604) [id number] 04:30:00 Test Item Value Reference Range Interpretation Comments MAGNESIUM (BEAKER) (test code = 1.8 mg/dL 1.6-2.6 627) POCT-GLUCOSE [id number] 04:25:00 Test Item Value Reference Range Interpretation Comments POC-GLUCOSE METER 126 mg/dL 70-110 H : TESTED A T [facility] 6720 (BEAKER) (test code = [place], 1538) [id number]: Catering Operations Manager/Techni theo ID = [id number] for Liban Arnett [id number] 04:18:00 Test Item Value Reference Range Interpretation Comments FIBRINOGEN LEVEL (BEAKER) (test 173 mg/dl 225-434 L code = 658) [id number] 04:14:00 Test Item Value Reference Range Interpretation [...] thrombosis and/or pulmonary embolus.HIGH RISK: Target INR is 2.5-3.5 for patients wiht mechanical heart valves.LACTIC ACID, [id number] 04:13:00 Test Item Value Reference Range Interpretation Comments LACTATE BLOOD VENOUS (2) (BEAKER) 1.2 mmol/L 0.5-2.2 (test code = 2872) POCT-GLUCOSE [id number] 01:33:00 Test Item Value Reference Range Interpretation Comments POC-GLUCOSE METER 103 mg/dL 70-110 : TESTED A T [facility] 6720 (BEAKER) (test code = [facility] [employer] [facility], 1538) [id number]: Catering Operations Manager/Techni theo ID = [id number] for GISELE CUETO HEMOGLOBIN AND [id number] 00:27:00 Test Item Value Reference Range Interpretation Comments HEMOGLOBIN (BEAKER) (test code = 8.6 GM/DL 11.2-15.7 L 410) HEMATOCRIT (BEAKER) (test code = 26.2 % 34.1-44.9 L 411) POCT-GLUCOSE [id number] 22:58:00 Test Item Value Reference Range Interpretation Comments POC-GLUCOSE METER 146 mg/dL 70-110 H : TESTED A T [facility] 6720 (BEAKER) (test code = [place] [employer] [facility], 1538) 745[address]: Catering Operations Manager/Techni theo ID = [id number] for GISELE CUETO RAD, CHEST, 1 VIEW, NON [id number] 21:37:00Reason for exam:->line placement, right IJShould this [...] MDReport Verified Date/Time: 10/06/2019 21:37:58 BASI METABOLIC [id number] 20:04:00 Test Item Value Reference Range Interpretation [...] APPLICABLE FOR DIALYSIS PATIEN TS. PROTEIN, RANDOM [id number] 19:50:00 Test Item Value Reference Range Interpretation Comments PROTEIN, URINE (BEAKER) (test code = 83 mg/dL 0-14 H 1569) CREATININE, RANDOM [id number] 19:28:00 Test Item Value Reference Range Interpretation Comments CREATININE URINE (BEAKER) (test 37.6 mg/dL code = 375) Reference Range: No [id number] 19:00:00 Test Item Value Reference Range Interpretation Comments MAGNESIUM (BEAKER) 2.0 mg/dL 1.6-2.6 Specimen slightly (test code = 627) hemolyzed [id number] 19:00:00 Test Item Value Reference Range Interpretation [...] 0-0 (test code = 413) LACTIC ACID, [id number] 18:55:00 Test Item Value Reference Range Interpretation Comments LACTATE BLOOD VENOUS 1.9 mmol/L 0.5-2.2 Specime n slightly (2) (BEAKER) (test hemolyzed code = 2872) VITAMIN B12 AND [id number] 18:36:00 Test Item Value Reference Range Interpretation Comments VITAMIN B12 (BEAKER) (test code = > pg/mL 213-816 H 774) FOLATE (BEAKER) (test code = 362) 17.3 ng/mL >=7.0 BLOOD GAS, [id number] 18:29:00 Test Item Value Reference Range Interpretation [...] code = 1819) 40.0 % BASIC METABOLIC [id number] 17:47:00 Test Item Value Reference Range Interpretation [...] NOT APPLICABLE FOR DIALYSIS PATIEN TS. POCT-GLUCOSE [id number] 17:39:00 Test Item Value Reference Range Interpretation Comments POC-GLUCOSE METER 188 mg/dL 70-110 H : TESTED A T [facility] 6720 (BEAKER) (test code = [place], 1538) [id number]: Catering Operations Manager/Techni theo ID = [id number] for GIDEON NUNEZ LIPID [id number] 17:28:00 Test Item Value Reference Range Interpretation Comments TRIGLYCERIDES (BEAKER) (test code = 182 mg/dL 540) CHOLESTEROL (BEAKER) (test code = 106 mg/dL 631) HDL CHOLESTEROL (BEAKER) (test code 20 mg/dL = 976) LDL CHOLESTEROL CALCULATED (BEAKER) 50 mg/dL (test code = 633) Triglyceride Reference Range: Low Risk <150 Borderline 150-199 High Risk 200- 499 Very High Risk >=500Cholesterol Reference Range: Low Risk <200 Borderline 200-239 High Risk >240HDL Cholesterol Reference Range: Low Risk >=60 High Risk <40LDL Cholesterol Reference Range: Optimal <100 Near Optimal 100-129 Borderline 130-159 High 160-189 Very High >=190URIC ACID 2019-10-06 17:28:00 Test Item Value Reference Range Interpretation Comments URIC ACID (BEAKER) (test code = 7.3 mg/dL 2.6-7.2 H 773) HEMOGLOBIN [id number] 16:13:00 Test Item Value Reference Range Interpretation Comments HEMOGLOBIN A1C (BEAKER) (test code = 6.0 % 4.3-6.1 368) HEPATITIS A ANTIBODY, [id number] 16:13:00 Test Item Value Reference Range Interpretation Comments HEPATITIS A IGG ANTIBODY (BEAKER) Reactive Nonreactive A (test code = 2797) CARCINOEMBRYONIC ANTIGEN (CEA)2019-10-06 16:08:00 Test Item Value Reference Range Interpretation Comments CARCINOEMBRYONIC ANTIGEN (BEAKER) 23.1 ng/mL 0.0-5.0 H (test code = 685) VITAMIN D, [id number] 16:08:00 Test Item Value Reference Range Interpretation Comments VITAMIN D 25-OH (BEAKER) (test 10.1 ng/mL 6.6-49.9 code = 2764) Effective 09/07/2017: Reference Range ChangeNew: 6.6-49.9 ng/mL Previous: 13.0- 47.8 ng/mLRecommendedVitamin D Target Range: 30.0-40.0 ng/mLTRANSFERRIN 2019-10-06 15:52:00 Test Item Value Reference Range Interpretation Comments TRANSFERRIN (JASON) (test code = 218 mg/dL 174-382 541) [id number] 15:09:00 Test Item Value Reference Range Interpretation Comments PHOSPHORUS (JASON) (test code = 1.7 mg/dL 2.3-4.7 L 604) U/S, ABDOMINAL, WITH [id number] 15:01:00Reason for exam:->acute liver injury, ? cholecystitis, ? portal vein thrombosisShould this be performed at the bedside?->YesFINAL REPORT Ultrasound of the Abdomen and Duplex Doppler. TECHNIQUE: Sonographic assessment of the abdomen was performed as well as a detailed duplex Doppler assessment of the liver including spectral wave forms and color-flow analysis of the major vascular structures. Clinical Hi story: acute liver injury, ? cholecystitis, ? portal vein thrombosis. Comparison study: None. Findings: The liver is homogeneous in echotexture with no focal masses. It measures 13.7 cm in length. The CBD is not seen but no intrahepatic biliary dilatation is noted. The main portal vein diameter is 0.9cm. Some pericholecystic fluid and significant gallbladder wall thickening are identified. No stonesare seen. There is no sonographic Miller sign. [...] cm/sec. Hepatopetal inflow is seen in the right, left, main portal and splenic veins. The resistive [...] HIDA scan could be performed as clinically indicated.No sonographic Miller sign is appreciated.3. Right hepatic artery not seen. Otherwise unremarkable hepatic Doppler.4. CBD not seen. No intrahepatic biliary dilatation. Signed: Amanda Van MDReport Verified Date/Time: 10/06/2019 15:01:21 Reading Location: [facility] C013X Ortho Consult Reading Room PREGNANCY SCREEN, [id number] 14:58:00 Test Item Value Reference Range Interpretation Comments TEST URINE (BEAKER) (test Negative code = 583) POCT-GLUCOSE [id number] 12:44:00 Test Item Value Reference Range Interpretation Comments POC-GLUCOSE METER 156 mg/dL 70-110 H : TESTED A T [facility] 6720 (BEAKER) (test code = [place], 1538) [id number]: Catering Operations Manager/Techni theo ID = [id number] for SA NDERS, GIDEON [id number] 12:39:00 Test Item Value Reference Range Interpretation Comments RPR SCREEN (BEAKER) (test code = Nonreactive Nonreactive 420) B-TYPE NATRIURETIC FACTOR (BNP)2019-10-06 11:57:00 Test Item Value Reference Range Interpretation Comments B-TYPE NATRIURETIC PEPTIDE 3996 pg/mL 0-100 H (BEAKER) (test code = 700) [id number] 11:51:00 Test Item Value Reference Range Interpretation Comments MAGNESIUM (BEAKER) (test code = 2.2 mg/dL 1.6-2.6 627) BLOOD GAS, [id number] 11:50:00 Test Item Value Reference Range Interpretation [...] code = 1819) 50.0 % RESPIRATORY PANEL [id number] 11:35:00 Test Item Value Reference Range Interpretation [...] decisions. This sample was tested at the [facility] Molecular Diagnostics [facility] using the [employer] FilmArray Respiratory Panel. It is FDA cleared and has been verified and approved by the [facility] for clinical use on nasopharyngeal swab specimens.The performance of the FilmArrayRP has not been established in individuals who received influenza vaccine. Recent administration of a nasal influenza vaccine may cause false positive results for Influenza A and/orInfluenza B.RETICULOCYTE [id number] 11:32:00 Test Item Value Reference Range Interpretation Comments RETICULOCYTE COUNT PCT (AKER) (test 2.1 % 0.5-1.7 H code = 575) KETONE, [id number] 11:30:00 Test Item Value Reference Range Interpretation Comments KETONES, BLOOD (AKER) (test code 0.3 mmol/L <0.4 = 1103) LEGIONELLA ANTIGEN, [id number] 09:37:00 Test Item Value Reference Range Interpretation Comments L. PNEUMOPHILA Negative - see Negative fo r L. SEROGP 1 UR AG comment pneumophila (AKER) (test code serogrou p 1 antigen, = 1156) suggesting no r ecent or current infe ction with this serog roup. Legionellosis c annot be ruled out si nce other serogroup s and species may cau se disease. STREP PNEUMONIAE [id number] 09:37:00 Test Item Value Reference Range Interpretation [...] the detection limit of the test. POCT-GLUCOSE [id number] 08:45:00 Test Item Value Reference Range Interpretation Comments POC-GLUCOSE METER 119 mg/dL 70-110 H : TESTED A T [facility] 6720 (BEAKER) (test code = [place], 1538) [id number]: Catering Operations Manager/Techni theo ID = [id number] for SA NDERS, GIDEON RAD, CHEST, 1 VIEW, NON [id number] 08:37:00Post-intubationReason for exam:- >intubationShould this be performed at the bedside?->YesFINAL REPORT Portable chest. CLINICAL HISTORY: intubation. COMPARISON STUDY: None. FINDINGS: The cardiac silhouette is prominent in size. The pulmonary parenchyma demonstrates increased interstitial markings bilaterally with patchy airspace opacities. An endotracheal tube, nasogastric tube and spinal stimulation device are seen. The tip of the endotracheal tube is approximately 5.5 cm above the ganesh. No pneumothorax is [...] MDReport Verified Date/Time: 10/06/2019 08:37:13 Reading Location: [address] Consult Reading Room Electronically signed by: AMANDA VAN M.D.on 10/06/2019 08:37 [id number] 07:44:00 Test Item Value Reference Range Interpretation Comments PROCALCITONIN (BEAKER) (test code 0.97 ng/mL <0.05 H = 3036) SEPSIS RISK (ng/mL)Low: 0.05-0.50Intermediate: 0.51-2.00High: >=2.01 URINALYSIS W/ REFLEX URINE [id number] 07:15:00 Test Item Value Reference Range Interpretation [...] code = 2795) ALPHA FETOPROTEIN (AFP), TUMOR [id number] 06:49:00 Test Item Value Reference Range Interpretation Comments ALPHA-FETOPROTEIN (BEAKER) (test code < ng/mL <10.0 = 1094) For 1 occurencesHEPATITIS B SURFACE [id number] 06:49:00 Test Item Value Reference Range Interpretation Comments HEPATITIS B SURFACE ANTIBODY < mIU/mL <8.0 (BEAKER) (test code = 647) For 1 occurencesRAPID DRUG SCREEN, [id number] 06:33:00 Test Item Value Reference Range Interpretation [...] situations. Chain of custody not maintained. Some ahmp-zpf-bvgbwje medications, as well as adulterants, may cause inaccurate results. Clinical correlation should be applied. A more comprehensivedrug screen or confirmation of a detected drug may be performed upon request.CREATININE, RANDOM [id number] 06:30:00 Test Item Value Reference Range Interpretation Comments CREATININE URINE (BEAKER) (test 38.0 mg/dL code = 375) Reference Range: No NormalsSODIUM, RANDOM [id number] 06:30:00 Test Item Value Reference Range Interpretation Comments SODIUM URINE (BEAKER) (test code = 51 meq/L 243) Reference Range: No NormalsHEPATITIS B CORE ANTIBODY, [id number] 06:27:00 Test Item Value Reference Range Interpretation Comments HEPATITIS B CORE TOTAL ANTIBODY Nonreactive Nonreactive (BEAKER) (test code = 497) For 1 [id number] 05:50:00 Test Item Value Reference Range Interpretation Comments FERRITIN (BEAKER) (test code = 1588 ng/mL 5-275 H 361) For 1 occurencesACETAMINOPHEN [id number] 05:30:00 Test Item Value Reference Range Interpretation Comments ACETAMINOPHEN LEVEL (BEAKER) (test < ug/mL 10.0-30.0 L code = 344) Therapeutic Range: 10.0-30.0 g/mLToxic Levels: >200.0 g/mLFor 1 occurences CPEDP-4-[id number] 05:20:00 Test Item Value Reference Range Interpretation Comments ALPHA-1 ANTITRYPSIN (BEAKER) 266.90 mg/dL 90.00-200.00 H (test code = 502) [id number] 05:17:00 Test Item Value Reference Range Interpretation Comments THYROID STIMULATING HORMONE 0.75 uIU/mL 0.35-4.94 (BEAKER) (test code = 772) HEPATITIS PANEL, [id number] 05:17:00 Test Item Value Reference Range Interpretation Comments HEPATITIS A IGM ANTIBODY (BEAKER) Nonreactive Nonreactive (test code = 498) HEPATITIS B CORE IGM ANTIBODY Nonreactive Nonreactive (BEAKER) (test code = 645) HEPATITIS C ANTIBODY (BEAKER) Nonreactive Nonreactive (test code = 367) HEPATITIS B SURFACE ANTIGEN (2) Nonreactive Nonreactive (BEAKER) (test code = 2585) HIV-1 ANTIGEN WITH HIV-1/2 [id number] 05:17:00 Test Item Value Reference Range Interpretation Comments HIV-1 ANTIGEN WITH HIV 1\T\2 Nonreactive Nonreactive ANTIBODY (2) (BEAKER) (test code = 2586) BASIC METABOLIC [id number] 05:09:00 Test Item Value Reference Range Interpretation [...] APPLICABLE FOR DIALYSIS PATIEN TS. HEPATIC FUNCTION [id number] 05:09:00 Test Item Value Reference Range Interpretation [...] code = > U/L 6-55 H 347) [id number] 05:07:00 Test Item Value Reference Range Interpretation Comments PHOSPHORUS (BEAKER) (test code = 3.6 mg/dL 2.3-4.7 604) [id number] 05:07:00 Test Item Value Reference Range Interpretation [...] H (test code = 364) LACTIC ACID, [id number] 04:58:00 Test Item Value Reference Range Interpretation Comments LACTATE BLOOD ARTERIAL (2) 1.5 mmol/L 0.5-2.2 (BEAKER) (test code = 2874) [id number] 04:56:00 Test Item Value Reference Range Interpretation Comments ETHANOL (BEAKER) (test code = 400) < mg/dL <=10 [id number] 04:54:00 Test Item Value Reference Range Interpretation [...] L (test code = 2590) BLOOD GAS, [id number] 04:53:00 Test Item Value Reference Range Interpretation [...] 30.0 % CBC W/PLT COUNT & AUTO [id number] 04:53:00 Test Item Value Reference Range Interpretation [...] PERCENT (BEAKER) (test code = 2801) CALCIUM, [id number] 04:51:00 Test Item Value Reference Range Interpretation Comments CALCIUM IONIZED (BEAKER) (test 1.12 mmol/L 1.12-1.27 code = 698) PH, BLOOD (BEAKER) (test code = 7.35 1810) PROTHROMBIN [id number] 04:43:00 Test Item Value Reference Range Interpretation Comments PROTIME (BEAKER) (test code = 30.3 seconds 11.9-14.2 H 759) INR (BEAKER) (test code = 370) 3.1 <=5.9 Effective 04/25/2019: PT Reference Range ChangeNew: 11.9-14.2 Previous: 11.7- 14.7RECOMMENDED COUMADIN/WARFARIN INR THERAPY RANGESSTANDARD DOSE: 2.0-3.0 Includes: PROPHYLAXIS for venous thrombosis, systemic embolization; TREATMENT for venous thrombosis and/or pulmonary embolus.HIGH RISK: Target INR is 2.5-3.5 for patients wiht mechanical heart valves.[id number] 04:43:00 Test Item Value Reference Range Interpretation Comments FIBRINOGEN LEVEL (BEAKER) (test 265 mg/dl 225-434 code = 658) [id number] 04:43:00 Test Item Value Reference Range Interpretation [...] thrombosis and/or pulmonary embolus.HIGH RISK: Target INR is 2.5-3.5 for patients wiht mechanical heart valves.ACUTE HEPATITIS [id number] 06:15:00 Test Item Value Reference Range Interpretation Comments AB HEPATITIS A IGM Negative Negative (test code = HAVMAB) AG HEPATITIS B Negative Negative SURFACE (test code = HBSAG) AB HEPATITIS B CORE Negative Negative IGM (test code = HBCMAB) AB HEPATITIS C (test <0.1 0.0-0.9 INFCE R esult Units: s/co code = HCVAB) ratio Negativ e: < 0.8 Indeterminate: 0.8 - 0.9 Positive: > 0.9 The CDC recommends that a positive HCV an tibody result be follo wed up with a HCV Nucl eic Acid Amplification t est (147438).Perfor med At: [facility] [id number] [place], [place] [id number] kris Gould MD Ph:[phone] HIV 1 2 ANTIBODY [id number] 06:15:00 Test Item Value Reference Range Interpretation Comments AB HIV 1 2 (test code = NON REACTIVE SCREEN NONREACTIVE [id number]) AG HIV1 P24 (test code = NON REACTIVE P24 NONREACTIVE [id number]) - CT ABD PELVIS [id number] 12:57:00 Name: GINA MARIE [facility] : 1965 Age/S: 53 / F [address] Unit #: [id number] Loc: [place] [address] Phys: Bryan Orta MD Acct: [id number] Dis Date: Status: ADM IN PHONE #: [phone] Exam Date: 03/09/2019 1200 FAX #: Reason: abd pain EXAMS: CPT: [id number] CT ABDPELVIS W/CONT 58212 LOCATION: T18 EXAM: CT ABDOMEN AND PELVIS [...] the colon noted. No bowel obstruction is seen.No free air free fluid is present. Moderate atherosclerotic calcifications of the aorta noted. No aneurysmal dilation. IVC is normal. Bones peripheral soft tissues are unremarkable. IMPRESSION: Prominent small bowel loops may represent enteritis. No bowel obstruction. Moderate stool burden concerningfor constipation. Moderate atherosclerotic disease of the abdominal aorta. at 1257 Reported and signed by: Donavon Blanco M.D. CC: Lou Sharp MD; Bryan Orta MD Technologist:Luis Moore, RT(R)(CT); .. CTDI: DLP: Trnscb Date/Time: 0 03/09/2019 (1257) t.SDR.JP19 Orig Print D/T: S: 03/09/2019 (1300) CTDI: DLP: PAGE 1 Signed ReportBASI METABOLIC [id number] 07:37:00 Test Item Value Reference Range Interpretation [...] = CA) 8.7 MG/DL 8.5-10.1 N T4 [id number] 07:37:00 Test Item Value Reference Range Interpretation Comments T4 FREE (test code = T4F) 0.70 NG/DL 0.89-1.76 L THYROID STIMULATING [id number] 07:37:00 Test Item Value Reference Range Interpretation Comments THYROID STIMULATING HORMONE 1.540 mcIU/ML 0.340-4.820 N (test code = TSH) ACUTE HEPATITIS [id number] 07:33:00 Test Item Value Reference Range Interpretation Comments AB HEPATITIS A IGM (test code = HAVMAB) AG HEPATITIS B SURFACE (test code = SCREEN NEGATIVE HBSAG) AB HEPATITIS B CORE IGM (test code = HBCMAB) AB HEPATITIS C (test code = HCVAB) RATIO <0.8 HIV 1 2 ANTIBODY [id number] 07:33:00 Test Item Value Reference Range Interpretation Comments AB HIV 1 2 (test code = NON REACTIVE SCREEN NONREACTIVE [id number]) AG HIV1 P24 (test code = NON REACTIVE P24 NONREACTIVE HIK6R45) GLYCOSYLATED HEMOGLOBIN [id number] 07:26:00 Test Item Value Reference Range Interpretation Comments GLYCOSYLATED HEMOGLOBIN (HA1C) 5.8 % A1C 4.2-6.3 N (test code = GLYHGB) ESTIMATED AVERAGE GLUCOSE (test 120 MG/DLest code = EAG) CBC W/AUTO [id number] 07:21:00 Test Item Value Reference Range Interpretation [...] DIFF/SCN CRITERIA MDIFF) - CT HEAD/BRAIN W/O [id number] 19:39:00 Name: GINA MARIE [facility] : 1965 Age/S: 53 / F [address] Unit #: [id number] Loc: [place] [address] Phys: Maria Morel MD Acct: [id number] Dis Date: Status: ADM IN PHONE #: [phone] Exam Date: 03/08/2019 8559 FAX #: Reason: near syncope EXAMS: CPT: [id number] HEAD/BRAIN W/O CONT 81078 CT head History: near syncope Comparison: None [...] in size for this age patient. There isno convincing evidence of intracranial hemorrhage or mass [...] PAGE 1 Signed ReportDRUGS OF ABUSE SCREEN [id number] 19:12:00 Test Item Value Reference Range Interpretation [...] NEGATIVE SCcutoff <300 NG/ML [place]) COMPREHENSIVE METABOLIC [id number] 17:26:00 Test Item Value Reference Range Interpretation [...] 45-117 N TOTAL (test code = ALKP) [id number] 17:26:00 Test Item Value Reference Range Interpretation Comments MAGNESIUM (test code = MAG) 1.9 MG/DL 1.8-2.4 N [id number] 17:26:00 Test Item Value Reference Range Interpretation Comments ALCOHOL (test code = ALC) < 3 MG/DL 0-10 N COMPREHENSIVE METABOLIC [id number] 17:21:00 Test Item Value Reference Range Interpretation [...] TOTAL (test Unit/L 45-117 code = ALKP) [id number] 17:21:00 Test Item Value Reference Range Interpretation Comments MAGNESIUM (test code = MAG) MG/DL 1.8-2.4 [id number] 17:21:00 Test Item Value Reference Range Interpretation Comments ALCOHOL (test code = ALC) MG/DL 0-10 CBC W/AUTO [id number] 17:08:00 Test Item Value Reference Range Interpretation [...] DIFF/SCN CRITERIA MDIFF) - XR CHEST 1 [id number] 16:33:00 [facility] [place] [facility] 1965 Age/S: 53 / F [address] Unit #: [id number] Loc: [place] [address] Phys: Maria Morel MD Acct: [id number] Dis Date: Status: PRE ER PHONE #: [phone] Exam Date: 03/08/2019 1627 FAX #: Reason: near syncope EXAMS: CPT: [id number] XR CHEST 1 V 41579 Fluoro Time: DAP (Gy m2): Air Kerma (mGy): LOCATION: T18 EXAM: CHEST 1 VIEW INDICATION: near syncope COMPARISON: Chest x-ray July 02, 2014 TECHNIQUE: AP chest radiograph. FINDINGS: Lungs are clear bilaterally without effusion. Heart and mediastinum are normal in size and contour.Intrathecal leads terminate in the mid thoracic spine. Bones and peripheral soft tissues are intact.IMPRESSION: Lungs are clear. No acute abnormality. at 1633 Reported and signed by: Donavon Blanco M.D. CC: Lou Sharp MD; Maria Morel MD PAGE 1 Signed Report Name: GINA MARIE : 1965 Age/S: 53 / F [address] Unit #: [id number] Loc: [place] [address] Phys: Maria Morel MD Acct: [id number] Dis Date: Status: PRE ER PHONE #: [phone] Exam Date: 03/08/2019 1627 FAX #: Reason: near syncope EXAMS: CPT: [id number] XR CHEST 1 V 64776 Fluoro Time: DAP (Gy m2): Air Kerma (mGy): (Continued)Technologist: Nanette Gordon, RT(R)(CT) Trnscb Date/Time: 03/08/2019 (2603) Mac.JP19 Orig PrintD/T: S: 03/08/2019 (8048) PAGE 2 Signed Report
[2022-09-15] MEDS ORDERED: NA CHLORIDE 0.9% 500 ML ONE (18:38)
[2022-09-15 19:02] LABS: Absolute Lymphocytes (CBC) 1.5 K/uL (0.7-4.9); Hematocrit 40.1 % (36.0-45.0); Lymphocytes % 16.1 % (15.3-44.8); MCV 70.1 fL (80-100); RBC Red Blood Cell Count 5.72 M/uL (3.86-4.86)
[2022-09-15 19:12] LABS: ALT/SGPT 1075 U/L (12-78); Albumin 3.8 g/dL (3.4-5.0); Alkaline Phosphatase 156 U/L (45-117); BUN Blood Urea Nitrogen 15 mg/dL (7-18); Bicarbonate 24 mmol/L (21-32); Bilirubin Direct 0.2 mg/dL (0-0.2); Bilirubin Total 0.5 mg/dL (0.2-1.0); Glomerular Filtration Rate 81 ml/min (=/>90); Glucose Level 107 mg/dL (74-106); Protein, Total 7.8 g/dL (6.4-8.2); Sodium Level 131 mmol/L (136-145)
[2022-09-15 19:13] LABS: Potassium 3.8 mmol/L (3.5-5.1)
[2022-09-15 19:15] LABS: AST/SGOT 737 U/L (15-37)
--- NOTE | 2022-09-15 19:15 | RAD REPORT ---
EXAM DESCRIPTION: RAD - Shoulder Left 2 View - 09/15/2022 7:03 pm CLINICAL HISTORY: PAIN COMPARISON: Scapula Left dated 10/07/2021 FINDINGS: The bones are demineralized. No fracture or dislocation suspected. Central aspect of the l eft clavicle appears absent.
--- NOTE | 2022-09-15 19:18 | RAD REPORT ---
EXAM DESCRIPTION: CT - Head Brain Wo Cont - 09/15/2022 7:12 pm CLINICAL HISTORY: AMS Headache, drowsiness COMPARISON: Head angio dated 09/06/2022; Head Brain Wo Cont dated 09/06/2022 TECHNIQUE: All CT scans are performed using dose optimization technique as appropriate and may inclu de automated exposure control or mA/KV adjustment according to patient size. FINDINGS: No intracranial hemorrhage, hydrocephalus or extra-axial fluid collection.Mild generalized brain atrophy.No areas of brain edema or evidence of midline shift. The paranasal sinuses and mastoids are clear. The calvarium is intact. IMPRESSION: No acute intracranial abnormality. If there is continued clinical concern for CVA, MR imaging of the brain would be recommended.
[2022-09-15 20:03] LABS: Urine Blood Negative (Negative); Urine Glucose Negative (Negative); Urine Protein Negative (Negative); Urine Specific Gravity 1.015 (1.005-1.030)
[2022-09-15 20:36] LABS: Urine RBC <5 /HPF (None Seen)
[2022-09-15 20:50] LABS: Barbiturates NEGATIVE (NEGATIVE); Benzodiazepines NEGATIVE (NEGATIVE); Cocaine NEGATIVE (NEGATIVE); METHAMPHETAM NEGATIVE (NEGATIVE); Methadone NEGATIVE (NEGATIVE); Opiates NEGATIVE (NEGATIVE); Phencyclidine NEGATIVE (NEGATIVE); THC Cannibis POSITIVE (NEGATIVE)
[2022-09-15] MEDS ORDERED: LIDOCAINE 4% PATCH ONE (21:19)
--- NOTE | 2022-09-15 21:22 | ER ---
Nurse's Notes [facility] Name: Pratibha Jennings Age: 56 yrs Sex: Female : 1965 Arrival Date: 09/15/2022 Time: 17:29 Bed 5 Private MD: Henry Lopez Diagnosis: Altered mental status, unspecified;Polypharmacy Presentation: 09/15 17:36 Chief complaint: Spouse and/or significant other states: states, "We are trying ss to get established with another PCP, Dr. Lopez. He sent us to see the psychiatrist. Dr. Guerrier told us to come here because her liver enzymes from her previous ER visit a little elevated and she is on a lot of medication, and she has been for some time, so they are concerned that perhaps she is not metabolizing them and it is messing with her head." states that patient has been altered for some time, but it has gotten worse over the past 2 days. Coronavirus screen: Client denies travel out of the [place] in the last 14 days. Ebola Screen: Patient denies exposure to infectious person. Patient denies travel to an Ebola-affected area in the 21 days before illness onset. Initial Sepsis Screen: Does the patient meet any 2 criteria? No. Patient's initial sepsis screen is negative. Does the patient have a suspected source of infection? No. Patient's initial sepsis screen is negative. Risk Assessment: Do you want to hurt yourself or someone else? Patient reports no desire to harm self or others. Onset of symptoms is unknown. 17:36 Method Of Arrival: Wheelchair ss 17:36 Acuity: NUSRAT 3 ss Historical: - Allergies: 17:52 Iodine; topical; ss 17:52 Latex, Natural Rubber; ss - PMHx: 17:52 ADD/ADHD; Back pain; Chronic pain; Degenerative disc disease; Hyperlipidemia; ss Hypertension; - PSHx: 17:52 Disc removal; Left clavicle; Left knee replacement; Left wrist surgery; Right knee ss replacement; Spinal surgery; - Immunization history:: Client reports receiving the 2nd dose of the Covid vaccine. - Social history:: Smoking status: Patient denies any tobacco usage or history of. Screenin:05 Abuse screen: Denies threats or abuse. Nutritional screening: No deficits noted. vc1 Tuberculosis screening: No symptoms or risk factors identified. Fall Risk None identified. Assessment: 18:26 General: Appears uncomfortable, Behavior is cooperative, appropriate for age. Pain: mb9 Complains of pain in left arm Pain currently is 7 out of 10 on a pain scale. Quality of pain is described as sharp, Pain began 1 day ago. Aggravated by repositioning. Neuro: Level of Consciousness is awake, alert, Oriented to person, place, situation, Speech is normal. Cardiovascular: Heart tones S1 S2 present. Respiratory: Airway is patent Respiratory effort is even, unlabored, Respiratory pattern is regular, symmetrical, Breath sounds are clear bilaterally. GI: Abdomen is flat. : No signs and/or symptoms were reported regarding the genitourinary system. EENT: No signs and/or symptoms were reported regarding the EENT system. Derm: Skin is fragile, is thin, Skin is dry, Skin temperature is cool Bruising that is dark purple, bilateral upper extremities . Musculoskeletal: Range of motion: limited in left shoulder and left elbow. 20:46 Reassessment: No changes from previously documented assessment. Patient and/or family vc1 updated on plan of care and expected duration. Pain level reassessed. Vital Signs: 17:36 BP 141 / 88; Pulse 102; Resp 19; Temp 98.3; Pulse Ox 99% on R/A; Weight 45.36 kg; ss Height 5 ft. 4 in. (162.56 cm); 18:29 BP 138 / 89; Pulse 68; Resp 16; Pulse Ox 97% on R/A; Pain 7/10; mb9 19:00 BP 133 / 92; Pulse 85; Resp 16; Pulse Ox 90% on R/A; vc1 20:00 BP 124 / 81; Pulse 70; Resp 16; Pulse Ox 90% on R/A; vc1 21:52 BP 134 / 92; Pulse 87; Resp 18 S; Pulse Ox 99% on R/A; as6 09/16 00:15 BP 129 / 81; Pulse 74; Resp 18 S; Pulse Ox 100% on R/A; as6 09/15 17:36 Body Mass Index 17.16 (45.36 kg, 162.56 cm) ED Course: 09/15 17:29 Patient arrived in ED. am2 17:30 Henry Lopez MD is Private Physician. am2 17:36 Pratibha Garber RN is Primary Nurse. mb9 17:41 Jasvir Porter NP is PHCP. pm1 17:41 Baldemar Browne MD is Attending Physician. pm1 17:52 Triage completed. ss 17:52 Arm band placed on right wrist. ss 18:26 Missed attempt(s): 20 gauge in right antecubital area. mb9 18:43 AMMONIA Sent. mb9 18:43 Acetaminophen Sent. mb9 18:43 Basic Metabolic Panel Sent. mb9 18:43 CBC with Diff Sent. mb9 18:43 ETOH Level Sent. mb9 18:43 Hepatic Function Sent. mb9 18:43 PT-INR Sent. mb9 18:43 Ptt, Activated Sent. mb9 18:43 Salicylate Sent. mb9 18:43 Inserted saline lock: 22 gauge in right forearm, using aseptic technique. Blood mb9 collected. 19:00 Patient has correct armband on for positive identification. Bed in low position. Pulse vc1 ox on. NIBP on. 19:05 Shoulder Left (2 View) XRAY In Process Unspecified. EDMS 19:13 CT Head Brain wo Cont In Process Unspecified. EDMS 20:09 Urine collected: straight cath specimen, cloudy, Amount Returned: 150mL. Straight cath wm inserted, using sterile technique, Returned cloudy urine. Patient tolerated well. 20:10 Urine Microscopic Only Sent. wm 20:10 Urine Drug Screen Sent. wm 21:21 Iona Brooks PA-C is Hospitalizing Provider. pm1 09/16 00:01 COVID swab sent to lab. wm 00:01 SARS RAPID Sent. wm 01:59 No provider procedures requiring assistance completed. Patient admitted, IV remains in as6 place. Administered Medications: 09/15 18:42 Drug: NS 0.9% 500 ml Route: IV; Rate: bolus; Site: right forearm; mb9 09/16 01:52 Follow up: Response: No adverse reaction; IV Status: Completed infusion; IV Intake: as6 500ml Medication: 09/15 20:48 VIS not applicable for this client. vc1 Intake: 09/16 01:52 IV: 500ml; Total: 500ml. as6 Outcome: 09/15 21:22 Decision to Hospitalize by Provider. pm1 09/16 01:59 Admitted to Tele accompanied by tech, via stretcher, room 415, with chart, Report as6 called to Beverly MILLER Condition: stable Instructed on the need for admit. 02:00 Patient left the ED. as6 Signatures: Dispatcher [employer] EDMS Gaby Samaniego RN RN ss Jasvir Porter, SALESPERSON WIGS SALESPERSON WIGS pm1 Felicia Godwin am2 Magi Courtney Ashby, RN RN as6 Suzanna Grier RN RN vc1 Pratibha Garber RN RN mb9
--- NOTE | 2022-09-15 21:23 | EDPHYS ---
Physician Documentation [facility] Name: Pratibha Jennings Age: 56 yrs Sex: Female : 1965 Arrival Date: 09/15/2022 Time: 17:29 Bed 5 Private MD: Henry Lopez ED Physician Baldemar Browne HPI: 09/15 17:54 This 56 yrs old Female presents to ER via Wheelchair with complaints of Altered Mental pm1 Status. 17:54 The patient presents with confusion. Onset: The symptoms/episode began/occurred 2 pm1 day(s) ago. Possible causes: elevated liver enzymes, polypharmacy . Associated signs and symptoms: Pertinent negatives: abdominal pain, chest pain, shortness of breath, vomiting, weakness. Current symptoms: In the emergency department the patient's symptoms have improved, per . The patient has experienced similar episodes in the past, a few times. The patient has been recently seen by a physician: the patient's primary care provider, Dr. Jean Baptiste. Patient was seen by Dr. Jean Baptiste seen today for the first time as a new patient. She saw him due to confusion for the past 2 days. She was referred to seeing Dr. Rivera and was evaluated by him today also. Dr. Jean Baptiste and recommended she follow-up in the ER for evaluation due to possibility of hepatic encephalopathy related to elevated liver enzymes or polypharmacy. Patient was recommended to stop taking many of her medications on her list including Suboxone, gabapentin, hydroxyzine. Patient reported he does not like to take Suboxone and has been taking extra gabapentin to compensate. Historical: - Allergies: 17:52 Iodine; topical; ss 17:52 Latex, Natural Rubber; ss - PMHx: 17:52 ADD/ADHD; Back pain; Chronic pain; Degenerative disc disease; Hyperlipidemia; ss Hypertension; - PSHx: 17:52 Disc removal; Left clavicle; Left knee replacement; Left wrist surgery; Right knee ss replacement; Spinal surgery; - Immunization history:: Client reports receiving the 2nd dose of the Covid vaccine. - Social history:: Smoking status: Patient denies any tobacco usage or history of. ROS: 17:54 Constitutional: Negative for fever, chills, and weight loss, Cardiovascular: Negative pm1 for chest pain, palpitations, and edema, Respiratory: Negative for shortness of breath, cough, wheezing, and pleuritic chest pain. 17:54 Skin: Negative for injury, rash, and discoloration. 17:54 MS/extremity: Positive for of the left shoulder, pain from fall last week, Negative for decreased range of motion, deformity. 17:54 Neuro: Positive for altered mental status, Negative for headache, numbness, tingling, weakness. 17:54 All other systems are negative. Exam: 17:54 Constitutional: This is a well developed, well nourished patient who is awake, alert, pm1 and in no acute distress. Head/Face: Normocephalic, atraumatic. 17:54 Skin: Warm, dry with normal turgor. Normal color with no rashes, no lesions, and no evidence of cellulitis. MS/ Extremity: Pulses equal, no cyanosis. Neurovascular intact. Full, normal range of motion. Tenderness present to right shoulder 17:54 Eyes: Exam is negative for acute changes, Periorbital structures: no acute changes, Pupils: dilated, bilaterally, Extraocular movements: no acute changes, Conjunctiva: no acute changes, no injection, Sclera: no acute changes, icterus, is not appreciated. 17:54 ENT: Exam is negative for acute changes, Mouth: no acute changes, Lips: normal, moist, Oral mucosa: normal, pink and intact, moist. 17:54 Cardiovascular: Exam negative for acute changes, Rate: normal, Rhythm: regular, Pulses: no pulse deficits are appreciated, Heart sounds: normal, normal S1and S2. 17:54 Respiratory: Exam negative for acute changes, respiratory distress, shortness of breath, Breath sounds: are clear throughout. 17:54 Neuro: Exam negative for acute changes, Orientation: is normal, to person, place, time, situation, Mentation: is normal, Motor: moves all fours. Vital Signs: 17:36 BP 141 / 88; Pulse 102; Resp 19; Temp 98.3; Pulse Ox 99% on R/A; Weight 45.36 kg; ss Height 5 ft. 4 in. (162.56 cm); 18:29 BP 138 / 89; Pulse 68; Resp 16; Pulse Ox 97% on R/A; Pain 7/10; mb9 19:00 BP 133 / 92; Pulse 85; Resp 16; Pulse Ox 90% on R/A; vc1 20:00 BP 124 / 81; Pulse 70; Resp 16; Pulse Ox 90% on R/A; vc1 21:52 BP 134 / 92; Pulse 87; Resp 18 S; Pulse Ox 99% on R/A; as6 09/16 00:15 BP 129 / 81; Pulse 74; Resp 18 S; Pulse Ox 100% on R/A; as6 09/15 17:36 Body Mass Index 17.16 (45.36 kg, 162.56 cm) ss MDM: 09/15 17:41 Patient medically screened. pm1 18:43 Data reviewed: vital signs. Data interpreted: Pulse oximetry: on room air is 97 %. pm1 Interpretation: normal. 20:36 Physician consultation: Henry Lopez MD left message. pm1 21:15 Physician consultation: Henry Lopez MD regarding consult, patient's condition, pm1 Kathleen consulted with John. Admit the patient for observation and hold her medications: suboxone, gabapentin, ambien, topiramate, hydrozyxzine, atorvastatin, robaxin, and zofran. Put consultation and will see her in the morning. May give trazadone for sleep and haldol for agitation (preferably PO, but IM if needed). 09/15 17:53 Order name: Acetaminophen; Complete Time: 19:20 pm1 09/15 17:53 Order name: Basic Metabolic Panel; Complete Time: 19:20 pm1 09/15 17:53 Order name: CBC with Diff; Complete Time: 19:05 pm1 09/15 17:53 Order name: ETOH Level; Complete Time: 19:04 pm1 09/15 17:53 Order name: Hepatic Function; Complete Time: 19:20 pm1 09/15 17:53 Order name: PT-INR; Complete Time: 20:00 pm1 09/15 17:53 Order name: Ptt, Activated; Complete Time: 20:00 pm1 09/15 17:53 Order name: Salicylate; Complete Time: 19:29 pm1 09/15 17:53 Order name: Urine Drug Screen; Complete Time: 20:51 pm1 09/15 17:54 Order name: AMMONIA; Complete Time: 19:04 pm1 09/15 20:00 Order name: Urine Microscopic Only; Complete Time: 20:40 pm1 09/15 20:04 Order name: Urine Dipstick-Ancillary; Complete Time: 20:08 EDMS 09/15 23:37 Order name: SARS RAPID vc1 09/16 00:48 Order name: SARS-COV-2 Antigen Rapid EDOH 09/15 17:53 Order name: EKG; Complete Time: 17:53 pm1 09/15 17:53 Order name: EKG - Nurse/Tech; Complete Time: 18:12 pm1 09/15 17:53 Order name: IV Saline Lock; Complete Time: 18:43 pm1 09/15 17:53 Order name: Labs collected and sent; Complete Time: 18:43 pm1 09/15 17:53 Order name: Urine Dipstick-Ancillary (obtain specimen); Complete Time: 20:10 pm1 09/15 17:54 Order name: CT Head Brain wo Cont; Complete Time: 19:20 pm1 09/15 18:44 Order name: Shoulder Left (2 View) XRAY; Complete Time: 19:20 pm1 Administered Medications: 18:42 Drug: NS 0.9% 500 ml Route: IV; Rate: bolus; Site: right forearm; mb9 09/16 01:52 Follow up: Response: No adverse reaction; IV Status: Completed infusion; IV Intake: as6 500ml Disposition Summary: 09/15/22 21:22 Hospitalization Ordered Hospitalization Status: Observation pm1 Provider: Iona Brooks pm1 Condition: Stable pm1 Problem: new pm1 Symptoms: have improved pm1 Bed/Room Type: Standard pm1 Location: Telemetry/MedSurg (observation)(09/16/22 00:09) Room Assignment: [facility](09/16/22 00:54) Diagnosis - Altered mental status, unspecified pm1 - Polypharmacy pm1 Forms: - Medication Reconciliation Form pm1 - SBAR form pm1 Signatures: Dispatcher [employer] EDOH Gaby Samaniego RN RN ss Garcia, Cindy, RN RN Jasvir Porter, [employer] TEAM MANAGER pm1 Shirin Campbell MD MD sd2 Iona Brooks, PA-C PA-C [id number] Pratibha Garber RN RN mb9 Calvin Noonan RN as6 Corrections: (The following items were deleted from the chart) 09/15 21:20 21:15 Physician consultation: Henry Lopez MD regarding consult, patient's condition, pm1 Dr Wang consulted with John. Admit the patient for observation and hold her medications: suboxone, gabapentin, ambien, topiramate, hydrozyxzine, atorvastatin, robaxin, and zofran. , pm1 21:28 21:15 Physician consultation: Henry Lopez MD regarding consult, patient's condition, pm1 Dr Wang consulted with John. Admit the patient for observation and hold her medications: suboxone, gabapentin, ambien, topiramate, hydrozyxzine, atorvastatin, robaxin, and zofran. Put consultation and will see her in the morning, pm1 23:06 21:22 Telemetry/MedSurg (observation) pm1 : 21:22 pm1 09/16 00:09 09/15 23:06 [facility] ER HOLD cg 09/16 00:09 09/15 23:06 ERHOLD- cg cg 09/16 00:54 00:09 cg
--- NOTE | 2022-09-15 23:28 | P.HP ---
Certification for Inpatient Patient admitted to: Observation With expected LOS: <2 Midnights Patient will require the following post-hospital care: None Practitioner: I am a practitioner with admitting privileges, knowledge of patient current condition, hospital course, and medical plan of care. Services: Services provided to patient in accordance with Admission requirements found in Title 42 Section 412.3 of the Code of Federal Regulations Patient History Date of Service: 09/16/22 Primary Care Provider: Naveed Reason for admission: AMS History of Present Illness: Patient is a 56 year old female with history of chronic pain syndrome on buprenorphine-naloxone, hypertension, hyperlipidemia, anxiety, and GERD who presented to the ED with AMS. Patient was seen by her PCP today for confusion who then referred her to psychiatry who recommended she come to ED for evaluation of possible hepatic encephalopathy as her liver enzymes were elevated. Patient has been admitted previously for AMS and elevated liver enzymes secondary to polypharmacy. She has been advised to stop many of her medications and has been prescribed Suboxone to help with her chronic pain, however she does not like the way it feels and has been taking extra gabapentin. She is also prescribed Ambien, hydroxyzine, atorvastatin, prozac, topiramate, r obaxin, zofran. Today her labs are significant for AST 737, ALT 1075, alk phos 156, ammonia < 15. Urine drug screen positive for THC. Dr. Lucio was contacted and wishes for patient to be admitted for observation to detox from all of these medications. Dr. Wang has also agreed to see patient. They recommend trazodone as needed for sleep and Haldol as needed for agitation. Allergies Latex, Natural Rubber Allergy (Verified 09/06/22 21:55) Hives/Rash TOPICAL IODINE Allergy (Mild, Uncoded 09/06/22 21:55) Hives/Rash Home medications list reviewed: Yes Home Medications: Amlodipine [Norvasc*] 1 tab PO DAILY 03/13/20 Fluoxetine HCl 1 tab PO DAILY 03/13/20 Gabapentin [Gralise] 600 mg PO TID 03/13/20 Zolpidem Tartrate [Ambien] 2 tab PO BEDTIME 03/13/20 hydrOXYzine pamoate [Hydroxyzine Pamoate] 75 cap PO BIDP PRN 03/13/20 Atorvastatin Calcium [Lipitor] 40 mg PO BEDTIME 03/28/20 Dexlansoprazole [Dexlansoprazole Dr] 1 cap PO DAILY 09/06/22 Sucralfate [Carafate*] 1 tab PO BID 09/06/22 methocarbamoL [Methocarbamol] 500 mg PO TID 09/06/22 Buprenorphine HCl/Naloxone HCl [Suboxone 2 mg-0.5 mg Tablet] 4 mg SL QID 09/07/22 Lidocaine [Lidocaine Pain Relief] 3 each TP DAILY 09/07/22 - Past Medical/Surgical History Diabetic: No -: htn -: chronic back pain -: anxiety -: hyperlipidemia -: degenerative disc disease -: ADD/ADHD -: spinal implant stimulator -: back surgery (herniated disc) -: left wrist -: Clavicle sx 10/16 Psychosocial/ Personal History: Patient is . - Family History Mother -: Hypertension, Diabetes Notes: hyperlipidemia - Social History Smoking Status: Never smoker Alcohol use: Yes CD- Drugs: Yes Caffeine use: Yes Place of Residence: Home Review of Systems Unremarkable Physical Examination - Physical Exam General: Alert, In no apparent distress HEENT: Atraumatic, PERRLA, EOMI, Sclerae nonicteric Neck: Supple, 2+ carotid pulse no bruit, No LAD, Without JVD or thyroid abnormality Respiratory: Clear to auscultation bilaterally, Normal air movement Cardiovascular: Regular rate/rhythm, Normal S1 S2 Gastrointestinal: Normal bowel sounds, No tenderness Musculoskeletal: No tenderness Integumentary: No rashes Neurological: Normal speech, Normal strength at 5/5 x4 extr, Normal tone, Normal affect - Studies Laboratory Data (last 24 hrs) 09/15/22 18:35: PT 11.0, INR 1.00, APTT 29.7 09/15/22 18:35: WBC 9.60, Hgb 13.1, Hct 40.1, Plt Count 243 09/15/22 18:35: Sodium 131 L, Potassium 3.8, BUN 15, Creatinine 0.84, Glucose 107 H, Total Bilirubin 0.5, AST 737 H*, ALT 1075 H*, Alkaline Phosphatase 156 H Assessment and Plan - Problems (Diagnosis) (1) Polypharmacy Current Visit: Yes Status: Acute (2) Altered mental status Current Visit: Yes Status: Acute Qualifiers: Altered mental status type: unspecified Qualified Code(s): R41.82 - Altered mental status, unspecified (3) Back pain, chronic Current Visit: Yes Status: Chronic Qualifiers: Back pain location: back pain in unspecified location Back pain laterality: unspecified Qualified Code(s): M54.9 - Dorsalgia, unspecified; G89.29 - Other chronic pain (4) Neuropathy Current Visit: Yes Status: Chronic (5) Hyperlipidemia Current Visit: Yes Status: Acute Qualifiers: Hyperlipidemia type: unspecified Qualified Code(s): E78.5 - Hyperlipidemia, unspecified (6) Elevated LFTs Current Visit: Yes Status: Acute - Plan -Patient admitted for observation -Psychiatry to see patient -Current recommendation is to hold all of patient's home meds except for prozac -She is able to have trazodone PRN sleep and Haldol PRN agitation -Gentle IV hydration and recheck LFTs in morning -Monitor and replete electrolytes per protocol -Reconcile and continue home medications -Lovenox for VTE ppx -Full code Discharge Plan: Home Plan to discharge in: 24 Hours - Advance Directives Does patient have a Living Will: Yes Does patient have a Durable POA for Healthcare: Yes - Code Status/Comfort Care Code Status Assessed: Yes (Full) Critical Care: No Time Spent Managing Pts Care (In Minutes): 50
[2022-09-16 00:47] LABS: SARS-CoV-2 Antigen Rapid Res Negative (Negative)
[2022-09-16] MEDS ORDERED: haloperidoL 5 MG TAB PO PRN (02:08)
[2022-09-16] MEDS: NA CHLORIDE 0.9% 1,000 ML IV SCH ×2 (02:38→15:44)
[2022-09-16] MEDS: TRAZODONE 50 MG TABLET PO PRN ×2 (02:38→20:17)
[2022-09-16 03:10] VITALS: BMI 16.0
[2022-09-16 06:13] LABS: Absolute Lymphocytes (CBC) 1.6 K/uL (0.7-4.9); Hematocrit 37.9 % (36.0-45.0); MCV 70.1 fL (80-100); MPV 8.5 fL (7.6-11.3)
[2022-09-16 06:44] LABS: Albumin 3.2 g/dL (3.4-5.0); Bilirubin Total 0.5 mg/dL (0.2-1.0); Phosphorus 2.7 mg/dL (2.5-4.9); Potassium 3.2 mmol/L (3.5-5.1); Protein, Total 6.7 g/dL (6.4-8.2); Thyroid Stimulating Hormone 0.557 uIU/mL (0.360-3.740)
[2022-09-16] MEDS ORDERED: POTASSIUM CL SA 10 MEQ TAB PO ONE (07:32)
--- NOTE | 2022-09-16 08:23 | RAD REPORT ---
EXAM DESCRIPTION: CT - Abdomen Pelvis W Contrast - 09/16/2022 7:48 am CLINICAL HISTORY: elevated liver enzymes COMPARISON: <Comparisons>CT abdomen and pelvis 06/03/2022 TECHNIQUE: Biphasic, helical CT imaging of the abdomen and pelvis was performed following 100 ml non -ionic IV contrast. No oral contrast administered. All CT scans are performed using dose optimization technique as appropriate and may include automated exposure control or mA/KV adjustment according to patient size. FINDINGS: Chronic interstitial lung pattern is present. No acute lung parenchymal process, pneumotho rax or pleural effusion. There is no cardiomegaly or pericardial effusion. Liver size is normal. There is a small 10 mm cyst posterior right lobe. No portal vein abnormality. N o suspicious liver lesions are present. Liver attenuation relative to the spleen suggest borderline f atty infiltration. No pancreatic or peripancreatic suspicious finding. No splenomegaly or focal splen ic process. Gallbladder and biliary tree are also without suspicious finding. Symmetric renal function is seen with no hydronephrosis or suspicious renal mass. No pyelonephritis o r acute parenchymal process. Well filled urinary bladder shows no suspicious finding. 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 No adrenal abnormalities. Patient's known hiatal hernia is again identified. The hernia is small in size and measure smaller th an the May examination. Muñoz of the distal esophagus appear slightly thickened. No acute small rafita l finding seen. Moderately large stool volume is present filling most of the colon. A primary colon p rocess is not seen. Appendix is not clearly defined. Acute appendicitis is not suspected. There is no right lower quadrant abnormal fluid or inflammatory stranding. No free air or pneumatosis. Trace fr ee fluid in the dependent portion of the pelvis. No hernia, mass or bulky lymphadenopathy. No suspicious bony findings. IMPRESSION: Normal size liver shows a borderline fatty infiltration pattern with no suspicious liver lesion. Remainder the study, as detailed above, is without acute or emergent finding. No worrisome change fro m the May comparison.
[2022-09-16] MEDS: LIDOCAINE 4% PATCH TOP SCH ×2 (10:54→20:18)
[2022-09-16] MEDS: SUCRALFATE 1 GM TABLET PO SCH (10:54)
[2022-09-16] MEDS ORDERED: GABAPENTIN 400 MG CAP PO ONE (11:40)
--- NOTE | 2022-09-16 14:46 | P.PN ---
Subjective Date of Service: 09/16/22 Primary Care Provider: Naveed Chief Complaint: AMS Patient is complaining left shoulder pain and hip pain and has been asking for pain medications. Physical Examination - Vital Signs Temperature: 99.5 F Blood Pressure: 189/97 Pulse: 84 Respirations: 16 Pulse Ox (%): 100 - Studies Laboratory Data (last 24 hrs) 09/15/22 18:35: PT 11.0, INR 1.00, APTT 29.7 09/15/22 18:35: WBC 9.60, Hgb 13.1, Hct 40.1, Plt Count 243 09/15/22 18:35: Sodium 131 L, Potassium 3.8, BUN 15, Creatinine 0.84, Glucose 107 H, Total Bilirubin 0.5, AST 737 H*, ALT 1075 H*, Alkaline Phosphatase 156 H Assessment And Plan - Current Problems (Diagnosis) (1) Altered mental status Current Visit: Yes Status: Acute Qualifiers: Altered mental status type: unspecified Qualified Code(s): R41.82 - Altered mental status, unspecified (2) Elevated LFTs Current Visit: Yes Status: Acute (3) Polypharmacy Current Visit: Yes Status: Acute (4) Back pain, chronic Current Visit: Yes Status: Chronic Qualifiers: Back pain location: back pain in unspecified location Back pain laterality: unspecified Qualified Code(s): M54.9 - Dorsalgia, unspecified; G89.29 - Other chronic pain (5) Neuropathy Current Visit: Yes Status: Chronic (6) Anxiety Current Visit: No Status: Acute (7) Hyponatremia Onset Date: 02/09/16 Current Visit: No Status: Resolved - Plan Physical Exam General: Alert, In no apparent distress Neck: Supple, No LAD, Without JVD elevation. Respiratory: Clear to auscultation bilaterally, Normal air movement Cardiovascular: Regular rate/rhythm, Normal S1 S2 Gastrointestinal: Normal bowel sounds, No tenderness Musculoskeletal: No tenderness Integumentary: No rashes Neurological: Normal speech, Normal strength at 5/5 x4 extr, dysphoric. Plan: Pain management with reduced dose gabapentin. Lidocaine patch for pain. Psych input appreciated. Continue fluoxetine and trazodone per psych. Continue to monitor LFT Hydrate with IV fluid. Hold Robaxin. Considering to add tramadol for uncontrolled pain. Hepatitis C negative. Follow-up hep B screen. CT abdomen pelvis unremarkable except fatty liver which could explain her el evated LFT. Patient also states she drinks alcohol on weekends. She is advised to quit drinking altogether.
[2022-09-16] MEDS: PANTOPRAZOLE 40MG TABLET PO SCH (15:44)
[2022-09-16] MEDS: FLUOXETINE 20 MG CAP PO SCH (15:44)
[2022-09-16] MEDS: AMLODIPINE 5 MG TAB PO SCH (15:44)
--- NOTE | 2022-09-16 16:15 | EKG ---
Test Date: 2022-09-15 Test Time: 18:08:18 Director Cardiology: RUBY MEASUREMENT RESULTS: Intervals: Rate: 91 [place]: 138 QRSD: 70 QT: 394 QTc: 484 [place]: P: 60 [place]: 138 QRS: 44 T: 89 INTERPRETIVE STATEMENTS: Normal sinus rhythm Right atrial enlargement Left ventricular hypertrophy with repolarization abnormality Prolonged QT Abnormal ECG Compared to ECG 09/06/2022 15:24:30 Atrial abnormality now present Early repolarization now present Prolonged QT interval now present Electronically Signed On 09-16-22 16:14:16 CDT by Sree Chen
[2022-09-16] MEDS: GABAPENTIN 300 MG CAP PO SCH (20:17)
[2022-09-16] MEDS: ENSURE ENLIVE 237 ML CAN PO SCH (20:30)
[2022-09-16] MEDS ORDERED: HOME MED 1 EA UNK (Fluoxetine Hcl [Prozac] 40 MG Capsule) PO SCH (21:00)
[2022-09-17] MEDS: NA CHLORIDE 0.9% 1,000 ML IV SCH ×3 (00:04→18:36)
[2022-09-17 04:52] LABS: Absolute Lymphocytes (CBC) 1.5 K/uL (0.7-4.9); Hematocrit 36.2 % (36.0-45.0); Lymphocytes % 21.5 % (15.3-44.8); MCV 70.4 fL (80-100); MPV 8.5 fL (7.6-11.3); RBC Red Blood Cell Count 5.14 M/uL (3.86-4.86)
[2022-09-17] MEDS ORDERED: POTASSIUM CL SA 10 MEQ TAB PO ONE ×2 (04:56→05:31)
[2022-09-17] MEDS: HYDRALAZINE HCL 20 MG/ML VIAL IV PRN ×2 (05:20→18:36)
[2022-09-17 05:24] LABS: Albumin 3.1 g/dL (3.4-5.0); Bilirubin Total 0.4 mg/dL (0.2-1.0); Potassium 3.4 mmol/L (3.5-5.1); Protein, Total 6.5 g/dL (6.4-8.2)
[2022-09-17] MEDS: SUCRALFATE 1 GM TABLET PO SCH ×2 (08:30→20:01)
[2022-09-17] MEDS: FLUOXETINE 20 MG CAP PO SCH ×2 (08:30→20:02)
[2022-09-17] MEDS: GABAPENTIN 300 MG CAP PO SCH ×3 (08:30→20:02)
[2022-09-17] MEDS: AMLODIPINE 5 MG TAB PO SCH (08:30)
[2022-09-17] MEDS: PANTOPRAZOLE 40MG TABLET PO SCH ×2 (08:30→18:36)
[2022-09-17] MEDS: LIDOCAINE 4% PATCH TOP SCH (08:31)
[2022-09-17] MEDS ORDERED: DEXLANSOPRAZOLE 60 MG PO SCH (09:00)
[2022-09-17] MEDS: ENSURE ENLIVE 237 ML CAN PO SCH ×2 (09:00→20:01)
[2022-09-17 15:34] VITALS: O2SAT 98
--- NOTE | 2022-09-17 16:38 | P.PN ---
Subjective Date of Service: 09/17/22 Primary Care Provider: Naveed Chief Complaint: AMS Patient states she feels better today. She states her pain is much better. Liver enzymes are still elevated. Physical Examination - Vital Signs Temperature: 99.2 F Blood Pressure: 146/74 Pulse: 92 Respirations: 18 Pulse Ox (%): 98 - Studies Laboratory Data (last 24 hrs) 09/17/22 11:10: Potassium 4.0 D 09/17/22 04:23: Sodium 136, Potassium 3.4 L, BUN 8, Creatinine 0.59, Glucose 107 H, Total Bilirubin 0.4, AST 640 H*, ALT 1010 H*, Alkaline Phosphatase 147 H 09/17/22 04:23: WBC 7.20, Hgb 11.7 L, Hct 36.2, Plt Count 203 09/16/22 20:06: Potassium 3.5 Assessment And Plan - Current Problems (Diagnosis) (1) Altered mental status Current Visit: Yes Status: Acute Qualifiers: Altered mental status type: unspecified Qualified Code(s): R41.82 - Altered mental status, unspecified (2) Elevated LFTs Current Visit: Yes Status: Acute (3) Polypharmacy Current Visit: Yes Status: Acute (4) Back pain, chronic Current Visit: Yes Status: Chronic Qualifiers: Back pain location: back pain in unspecified location Back pain laterality: unspecified Qualified Code(s): M54.9 - Dorsalgia, unspecified; G89.29 - Other chronic pain (5) Neuropathy Current Visit: Yes Status: Chronic (6) Anxiety Current Visit: No Status: Acute (7) Hyponatremia Onset Date: 02/09/16 Current Visit: No Status: Resolved - Plan Physical Exam General: Alert, In no apparent distress Neck: Supple, No LAD, Without JVD elevation. Respiratory: Clear to auscultation bilaterally, Normal air movement Cardiovascular: Regular rate/rhythm, Normal S1 S2 Gastrointestinal: Normal bowel sounds, No tenderness Musculoskeletal: No tenderness Integumentary: No rashes Neurological: Normal speech, Normal strength at 5/5 x4 extr, dysphoric. Plan: Patient is awake and alert with a complaint pain regimen Continue current dose gabapentin, Lidocaine patch. Psych input appreciated. Continue fluoxetine and trazodone per psych. Continue to monitor LFT Continue IV fluid Robaxin on hold Hepatitis C negative. Follow-up hep B screen. CT abdomen pelvis unremarkable except fatty liver which could explain her elevated LFT. Patient also states she drinks alcohol on weekends. She is advised to quit drinking altogether.
[2022-09-17] MEDS: TRAZODONE 50 MG TABLET PO PRN (20:40)
[2022-09-18] MEDS ORDERED: HALOPERIDOL LACT 5 MG/ML INJ IV PRN (00:14)
[2022-09-18] MEDS: HYDRALAZINE HCL 20 MG/ML VIAL IV PRN ×2 (00:26→05:44)
[2022-09-18] MEDS: NA CHLORIDE 0.9% 1,000 ML IV SCH (04:43)
[2022-09-18 05:01] LABS: Albumin 3.4 g/dL (3.4-5.0); Bilirubin Total 0.4 mg/dL (0.2-1.0); Potassium 3.7 mmol/L (3.5-5.1); Protein, Total 7.2 g/dL (6.4-8.2)
[2022-09-18] MEDS ORDERED: POTASSIUM CL SA 10 MEQ TAB PO ONE (05:14)
[2022-09-18] MEDS: FLUOXETINE 20 MG CAP PO SCH (08:03)
[2022-09-18] MEDS: PANTOPRAZOLE 40MG TABLET PO SCH (08:04)
[2022-09-18] MEDS: SUCRALFATE 1 GM TABLET PO SCH (08:04)
[2022-09-18] MEDS: LIDOCAINE 4% PATCH TOP SCH (08:04)
[2022-09-18] MEDS: GABAPENTIN 300 MG CAP PO SCH (08:04)
[2022-09-18 08:08] VITALS: BP 145/89; TEMP 98.6
[2022-09-18] MEDS ORDERED: AMLODIPINE 5 MG TAB PO SCH (10:00)
--- NOTE | 2022-09-18 10:58 | P.DS ---
Admission Date: 09/17/22 Discharge Date: 09/18/22 Primary Care Provider: Naveed Disposition: ROUTINE DISCHARGE Discharge Condition: FAIR Reason for Admission: AMS - Problems (1) Altered mental status Status: Acute Qualifiers: Altered mental status type: unspecified Qualified Code(s): R41.82 - Altered mental status, unspecified (2) Elevated LFTs Status: Acute (3) Polypharmacy Status: Acute (4) Back pain, chronic Status: Chronic Qualifiers: Back pain location: back pain in unspecified location Back pain laterality: unspecified Qualified Code(s): M54.9 - Dorsalgia, unspecified; G89.29 - Other chronic pain (5) Neuropathy Status: Chronic (6) Anxiety Status: Acute (7) Hyponatremia Onset Date: 02/09/16 Status: Resolved Brief History of Present Illness: Patient is a 56 year old female with history of chronic pain syndrome on buprenorphine-naloxone, hypertension, hyperlipidemia, anxiety, and GERD who presented to the ED with AMS. Patient was seen by her PCP today for confusion who then referred her to psychiatry who recommended she come to ED for evaluation of possible hepatic encephalopathy as her liver enzymes were eleva aleksandr. Patient has been admitted previously for AMS and elevated liver enzymes secondary to polypharmacy. She has been advised to stop many of her medications and has been prescribed Suboxone to help with her chronic pain, however she does not like the way it feels and has been taking extra gabapentin. She was also prescribed Ambien, hydroxyzine, atorvastatin, prozac, topiramate, robaxin, zofran. Her labs were significant for AST 737, ALT 1075, alk phos 156, ammonia < 15. Urine drug screen positive for THC. Dr. Lucio was contacted who recommended hospitalization to detox her from her medication. Dr. Wang also agreed to see patient in the hospital. Patient hospitalized for further management. Hospital Course: Patient treated with supportive measures with IV fluid. She was seen by psychiatry and her medications scaled down to fluoxetine, trazodone and her gabapentin dose for pain halved to 300 mg 3 times daily. Patient mental status improved significantly with these measures. Her pain was intermittent. AST improved significantly but was still elevated, not much improvement in ALT. Patient with a prior history of liver toxicity considered to be from acetaminophen and prolonged hospitalization at a tertiary center. According to the spouse her liver enzymes eventually recovered. Spouse reported patient has been vaping for pain control, stated the vape contains cannabinoid but does not know what other ingredients are also present. Elevated ALT could be secondary to Suboxone use in the context of chronic liver disease. CT abdomen and pelvis demonstrated fatty liver. Bilirubin not elevated and coagulation profile is normal. Case discussed with patient utility system operator-Dr. Sharp who stated no indication for steroid. Patient wants to go home today. I explained to her and her and liver enzymes are still significantly elevated and may get worse. They insisted on discharging today. Dr. Sharp is willing to follow-up with her as an outpatient next and recommended repeat CMP before follow-up next week. Patient given a prescription for repeat labs on 09/21/2022. She is discharged per her request. Vital Signs/Physical Exam: Temp Pulse Resp BP Pulse Ox 98.6 F 105 H 16 145/89 H 98 09/18/22 08:00 09/18/22 08:00 09/18/22 08:00 09/18/22 08:00 09/18/22 08:00 General: Alert, Oriented x3 Neck: Supple, JVD not distended Respiratory: Clear to auscultation bilaterally, Normal air movement Cardiovascular: No edema, Regular rate/rhythm, Normal S1 S2 Gastrointestinal: Soft and benign, Non-distended, No tenderness Musculoskeletal: No swelling Integumentary: No rashes Neurological: Normal strength at 5/5 x4 extr Laboratory Data at Discharge: WBC 7.20 K/uL (4.3-10.9) 09/17/22 04:23 Hgb 11.7 g/dL (12.0-15.0) L 09/17/22 04:23 Hct 36.2 % (36.0-45.0) 09/17/22 04:23 Plt Count 203 K/uL (152-406) 09/17/22 04:23 PT 11.0 SECONDS (9.5-12.5) 09/15/22 18:35 INR 1.00 09/15/22 18:35 APTT 29.7 SECONDS (24.3-36.9) 09/15/22 18:35 Sodium 135 mmol/L (136-145) L 09/18/22 03:21 Potassium 3.7 mmol/L (3.5-5.1) 09/18/22 03:21 BUN 9 mg/dL (7-18) 09/18/22 03:21 Creatinine 0.59 mg/dL (0.55-1.3) 09/18/22 03:21 Glucose 115 mg/dL (74-106) H 09/18/22 03:21 Phosphorus 2.7 mg/dL (2.5-4.9) 09/16/22 05:36 Magnesium 2.0 mg/dL (1.8-2.4) 09/16/22 05:36 Total Bilirubin 0.4 mg/dL (0.2-1.0) 09/18/22 03:21 AST 462 U/L (15-37) H* 09/18/22 03:21 ALT 926 U/L (12-78) H* 09/18/22 03:21 Alkaline Phosphatase 163 U/L (45-117) H 09/18/22 03:21 Triglycerides 107 mg/dL (<150) 09/16/22 05:36 Cholesterol 170 mg/dL (<200) 09/16/22 05:36 HDL Cholesterol 57 mg/dL (40-60) 09/16/22 05:36 Cholesterol/HDL Ratio 2.98 09/16/22 05:36 Home Medications: Amlodipine [Norvasc*] 5 mg PO DAILY 03/13/20 Dexlansoprazole [Dexlansoprazole Dr] 60 mg PO DAILY 09/06/22 Sucralfate [Carafate*] 1 tab PO BID 09/06/22 Lidocaine [Lidocaine Pain Relief] 3 each TP BID 09/07/22 Fluoxetine HCl [Prozac] 40 mg PO BID 09/16/22 Ensure Enlive 237 ml PO BID #60 can 09/18/22 Gabapentin 300 mg PO TID #90 cap 09/18/22 Trazodone [Desyrel*] 50 mg PO BEDTIME PRN PRN #30 tab 09/18/22 New Medications: Trazodone [Desyrel*] 50 mg PO BEDTIME PRN PRN #30 tab PRN Reason: Insomnia Ensure Enlive 237 ml PO BID #60 can Gabapentin 300 mg PO TID #90 cap Physician Discharge Instructions: Check comprehensive metabolic profile and CBC on 09/21/[address] Sharp on 09/22/2022. Diet: AHA Activity: Fall precautions Followup: Lou Sharp MD [OUTSIDE PHYSICIAN] - 09/22/22 (Please call office to schedule appointment for Tue09/22/2022.) Henry Lopez MD [Primary Care Provider] - 1-2 Weeks (Call to make appointment) Time spent managing pt's care (in minutes): 38
[2022-09-19 11:19] LABS: HBsAG Nonreactive (Nonreactive)
--- NOTE | 2022-09-20 13:38 | CON ---
Date of Consultation: 07/07/2022 Type Of: Psychiatric consult. Reason For Consultation: Evaluation for altered mental status and recognition of medications. History Of Present Illness: Mrs. Pratibha Jennings is a 56-year-old female with psychiatry histo ry for anxiety and depressive disorder. The patient was seen on the telemedicine unit with the prese nce of the . History was provided by the well known to this provider. The patient wa s referred to she gets very anxious and depressed. No history of bipolar disorder. No hi story of OCD. No history of alcohol abuse, but admitted to use of marijuana to help with her pain. The patient was as needed. She was on Prozac for anxiety. Physical Examination: Vital Signs: Blood pressure 147/74, temperature is 99.2, pulse is 97, respiratory rate is 18 [[facility]], no suicidal ideations. Fund of knowledge is fair. Language is good. Insight, impulse control , and judgment is fair. Impression: Mrs. Pratibha Jennings is a 56-year-old Diagnoses: 1. . 2.Generalized anxiety disorder. 3.Major depressive disorder. 4. . Plan: 1.We will decrease gabapentin to 300 mg p.o. t.i.d. 2.Stop Suboxone and Zofran. 3.Continue Prozac . KO/MODL Voice ID: [id number] Report ID: [id number]
== END 2022-09-18 11:43 | disposition home or self-care (01) | DRG 948 ==
LOC: ER 17:28 → ERHOLD 23:04 → 4TH 09-16 01:01 → OBSVTOIN 09-17 15:21
PROVIDERS: ADMIT Internal Medicine; ATTEND Internal Medicine
DX: R41.82 Altered mental status, unspecified (principal); E87.1 Hypo-osmolality and hyponatremia; E78.5 Hyperlipidemia, unspecified; G89.29 Other chronic pain; M54.9 Dorsalgia, unspecified; I10 Essential (primary) hypertension; G62.9 Polyneuropathy, unspecified; K76.0 Fatty (change of) liver, not elsewhere classified; F32.9 Major depressive disorder, single episode, unspecified; F41.1 Generalized anxiety disorder; K21.9 Gastro-esophageal reflux disease without esophagitis; T43.595A Adverse effect of other antipsychotics and neuroleptics, initial encounter; T46.6X5A Adverse effect of antihyperlipidemic and antiarteriosclerotic drugs, initial encounter; T43.225A Adverse effect of selective serotonin reuptake inhibitors, initial encounter; T42.8X5A Adverse effect of antiparkinsonism drugs and other central muscle-tone depressants, initial encounter; T45.0X5A Adverse effect of antiallergic and antiemetic drugs, initial encounter; R79.89 Other specified abnormal findings of blood chemistry; Z91.09 Other allergy status, other than to drugs and biological substances; Z91.048 Other nonmedicinal substance allergy status; Z96.653 Presence of artificial knee joint, bilateral; Z91.040 Latex allergy status; Z79.899 Other long term (current) drug therapy; Z20.822 Contact with and (suspected) exposure to COVID-19
CPT/HCPCS: 36415; 51702; 70450; 74177; 80048; 80053; 80061; 80076; 80307; 80320; 80329; 81003; 81015; 82140; 83735; 84100; 84132; 84439; 84443; 85025; 85610; 85730; 87340; 87811; 93005; 94760; 96360; 96361; 99285; G0378; J0360; J1630; J2001; J7030; J7040; Q9967

== ENCOUNTER 2022-10-04 19:56 | Emergency (ER) | payer OTHER ==
--- OUTSIDE RECORDS SUMMARY | 2022-10-04 20:11 | XMS REPORT | Continuity of Care Document ---
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 [...] mg tablet 00:00: as needed. Ho spita 00 l amLODIPine 2018-11 Yes 5mg Take 5 mg Me thodi (NORVASC) 5 0-[address] mg tablet 00:00: as needed. Ho spita 00 l topiramate 2018-11 Yes 25 mg = 1 Me moria 25 MG Oral 0-23 tab, PO, l Tablet 18:40: BID, # 60 Reece n [Topamax] 02 tab, 2 Refill(s), Pharmacy: [facility] #[id number] topiramate 2018-11 Yes 25 mg = 1 Me moria 25 MG Oral 0-23 tab, PO, l Tablet 18:40: BID, # 60 Reece n [Topamax] 02 tab, 2 Refill(s), Pharmacy: [facility] #[id number] topiramate 2018-11 Yes 25 mg = 1 Me moria 25 MG Oral 0-23 tab, PO, l Tablet 18:40: BID, # 60 Reece n [Topamax] 02 tab, 2 Refill(s), Pharmacy: [facility] #[id number] topiramate 2019-0 Yes 25 mg = 1 Me moria 25 MG Oral 8-21 tab, PO, l Tablet 15:45: Bedtime, # Mary nn [Topamax] 00 30 tab, 2 Refill(s), [id number] topiramate 2019-0 Yes 25 mg = 1 Me moria 25 MG Oral 8-21 tab, PO, l Tablet 15:45: Bedtime, # Mary nn [Topamax] 00 30 tab, 2 Refill(s), Pharmacy: [facility] #[id number] topiramate 2019-0 Yes 25 mg = 1 Me moria 25 MG Oral 8-21 tab, PO, l Tablet 15:45: Bedtime, # Mary nn [Topamax] 00 30 tab, 2 Refill(s), Pharmacy: [facility] #[id number] atorvastati 0 Yes PO, Daily, Memoria n 8-21 0 l 15:28: Refill(s) Amlodipine 2018-0 Yes PO, Daily, M emoria 8-21 0 l 15:28: Refill(s) amLODIPine 2019-0 Yes PO, Daily, M emoria 8-21 0 l 15:28: Refill(s) atorvastati 2018-0 [...] 8-21 Q8H, 0 l 15:00: Refill(s) oxyCODONE 2019-0 Yes 10 mg = 1 Mem oria 10 mg oral 8-21 tab, PO, l tablet, 15:00: Q6H, 0 [facility] Hugo 00 Refill(s) release gabapentin 2019-0 Yes 600 mg, Rao caity 8-21 PO, TID, 0 l 15:00: Refill(s) Ambien Yes 5 mg, PO, Memori a 8- Bedtime, 0 l 15:00: Refill(s) Lidocaine Yes [...] 8-21 Daily, 0 l 15:00: Refill(s) gabapentin 2018-0 Yes 600 mg, Rao caity 8-21 PO, TID, 0 l 15:00: Refill(s) Ambien 0 Yes 5 mg, PO, Memori a 8-21 Bedtime, 0 l 15:00: Refill(s) lidocaine 2018-0 Yes See Memoria 07-18 Instructio l 15:00: ns, 5 % Transderma l q12, 0 Refill(s) Protonix 20190 Yes 40 mg, PO, Mem oria 8-21 Daily, 0 l 15:00: Refill(s) Zofran 4 mg 2019-0 Yes 4 mg = 1 Me moria oral tablet 8-21 tab, PO, l 15:00: Q8H, 0 Refill(s) hydrOXYzine 2019 Yes 25 mg = 1 M emoria 07-18 tab, PO, l 15:00: Q6H, PRN rash / allergy symptoms, 0 Refill(s) FLUoxetine Yes 60 mg, PO, M emoria 8 Daily, 0 l 15:00: Refill(s) Zanaflex 20190 Yes 4 mg, PO, Rao caity 07-18 Q8H, 0 l 15:00: Refill(s) oxyCODONE Yes 10 mg = 1 Mem oria 10 mg oral 07-18 tab, PO, l tablet, 15:00: Q6H, 0 Refill(s) release gabapentin Yes 600 mg, Rao caity 07-18 PO, TID, 0 l 15:00: Refill(s) Ambien Yes 5 mg, PO, Memori a 07-18 Bedtime, 0 l 15:00: Refill(s) Lidocaine 20190 Yes See Memoria 07-18 Instructio l 15:00: ns, 5 % Transderma l q12, 0 Refill(s) Protonix 0 Yes 40 mg, PO, Mem oria 07-18 Daily, 0 l 15:00: Refill(s) Ondansetron 0 Yes 4 mg = 1 Me moria 4 MG Oral 07-18 tab, PO, l Tablet 15:00: Q8H, 0 [Zofran] Refill(s) Hydroxyzine Yes 25 mg = 1 M emoria 07-18 tab, PO, l 15:00: Q6H, PRN rash / allergy symptoms, 0 Refill(s) Fluoxetine 0 Yes 60 mg, PO, M emoria 8 Daily, 0 l 15:00: Refill(s) gabapentin 2018-0 Yes 600 mg, Rao caity 07-18 PO, TID, 0 l 15:00: Refill(s) Ambien 0 Yes 5 mg, PO, Memori a 8-21 Bedtime, 0 l 15:00: Refill(s) lidocaine 2019-0 Yes See Memoria 07-18 Instructio l 15:00: ns, 5 % Transderma l q12, 0 Refill(s) Protonix 2019- Yes 40 mg, PO, Mem oria 8 [...] 07-18 Daily, 0 l 15:00: Refill(s) Zanaflex Yes 4 mg, PO, Rao caity 07-18 Q8H, 0 l 15:00: Refill(s) oxyCODONE Yes 10 mg = 1 Mem oria 10 mg oral 07-18 tab, PO, l tablet, 15:00: Q6H, 0 Refill(s) release gabapentin Yes 600 mg, Rao caity 07-18 PO, [...] rash / allergy symptoms, 0 Refill(s) Fluoxetine 2019- Yes 60 mg, PO, M emoria 8 Daily, 0 l 15:00: Refill(s) gabapentin 2019 Yes 600 mg, Rao caity 07-18 PO, TID, 0 l 15:00: Refill(s) Ambien 2019 Yes 5 mg, PO, Memori a 07-18 Bedtime, 0 l 15:00: Refill(s) lidocaine 2019- Yes See Memoria 07-18 Instructio l 15:00: ns, 5 % Transderma l q12, 0 Refill(s) Protonix Yes 40 mg, PO, Mem oria 07-18 Daily, 0 l 15:00: Refill(s) Zofran 4 mg Yes 4 mg = 1 Me moria oral tablet 07-18 tab, PO, l 15:00: Q8H, 0 Refill(s) hydrOXYzine Yes 25 mg = 1 M emoria 07-18 tab, PO, l 15:00: Q6H, PRN rash / allergy symptoms, 0 Refill(s) FLUoxetine Yes 60 mg, PO, M emoria 07-18 Daily, 0 l 15:00: Refill(s) atorvastati Yes 1{tbl} Q.5D Take 1 Me thodi n (LIPITOR) 2-[address] 20 MG 00:00: mouth 2 Hospita tablet 00 (two) l times a day. atorvastati Yes 1{tbl} Q.5D Take 1 Me thodi n (LIPITOR) 2-[address] 20 MG 00:00: mouth 2 Hospita tablet 00 (two) l times a day. atorvastati Yes 1{tbl} Q.5D Take 1 Me thodi n (LIPITOR) 2-[address] 20 MG 00:00: mouth 2 Hospita tablet 00 (two) l times a day. atorvastati Yes 1{tbl} Q.5D Take 1 Me thodi n (LIPITOR) 2-[address] 20 MG 00:00: mouth 2 Hospita tablet 00 (two) l times a day. pantoprazol 2018-0 Yes 1{tbl} QD Take 1 [...] Immunizations Ordered Filled Immunization Date Status Comments [facility] e Immunization Name Name [id number] 2021-04-06 Completed Memor ia [facility] [id number]< 00:00:00 sup>1</sup> [id number] 2021-04-06 Completed Memor [facility] Victor Hugo RNA-[id number]< 00:00:00 sup>1</sup> SARS-COV-2 COVID-19 2021-04-06 Completed Unive rsity of MODERNA VACCINE 00:00:00 [facility] SARS-COV-2 COVID-19 2021-04-06 Completed Unive rsity of MODERNA VACCINE 00:00:00 [facility] SARS-COV-2 COVID-19 2021-04-06 Completed Unive rsity of MODERNA VACCINE 00:00:00 [facility] SARS-COV-2 COVID-19 2021-04-06 Completed Unive rsity of MODERNA 12+ YRS 00:00:00 [facility] SARS-COV-2 COVID-19 2021-04-06 Completed Unive rsity of MODERNA VACCINE 00:00:00 [facility] SARS-COV-2 COVID-19 2021-04-06 Completed Unive rsity of MODERNA VACCINE 00:00:00 [facility] ical Branch SARS-COV-2 COVID-19 2021-04-06 Completed Unive rsity of MODERNA VACCINE 00:00:00 [facility] ical Branch [id number] 2021-04-06 Completed Megan Gay RNA-[id number]< 00:00:00 sup>1</sup> SARS-COV-2 COVID-19 2021-03-12 Completed Unive rsity of MODERNA VACCINE 00:00:00 [facility] ical Branch SARS-COV-2 COVID-19 2021-03-12 Completed Unive rsity of MODERNA VACCINE 00:00:00 [facility] ical Branch SARS-COV-2 COVID-19 2021-03-12 Completed Unive rsity of MODERNA VACCINE 00:00:00 [facility] ical Branch SARS-COV-2 COVID-19 2021-03-12 Completed Unive rsity of MODERNA VACCINE 00:00:00 [facility] ical Branch SARS-COV-2 COVID-19 2021-03-12 Completed Unive rsity of MODERNA 12+ YRS 00:00:00 [facility] ical VACCINE Branch SARS-COV-2 COVID-19 2021-03-12 Completed Unive rsity of MODERNA VACCINE 00:00:00 [facility] ical Branch SARS-COV-2 COVID-19 2021-03-12 Completed Unive rsity of MODERNA VACCINE 00:00:00 [facility] Influenza Virus 2020-11-28 Completed Universit y of Vaccine (3+ yrs) 00:00:00 [facility] dical Branch Influenza Virus 2020-11-28 Completed Universit y of Vaccine (3+ yrs) 00:00:00 [facility] dichi Branch Influenza Virus 2020-11-28 Completed Universit y of Vaccine (3+ yrs) 00:00:00 [facility] dichi Branch Influenza Virus 2020-11-28 Completed Universit y of Vaccine (3+ yrs) 00:00:00 [facility] dichi Branch Influenza Virus 2020-11-28 Completed Universit y of Vaccine (3+ yrs) 00:00:00 [facility] Influenza Virus 2020-11-28 Completed Universit y of Vaccine (3+ yrs) 00:00:00 [facility] dical Branch Influenza Virus 2020-11-28 Completed Universit y of Vaccine (3+ yrs) 00:00:00 [facility] Branch FLUCELVAX QUAD PF 2017-10-[address] 00:00:00 Hospital Pneumococcal 2017-10-06 Completed Uatsdin Conjugate 13-Valent 00:00:00 Hospi iqra Influenza Virus 2017-10-06 Completed Universit y of Vaccine Quad IM, 00:00:00 [facility] dical Preserv and ABX Branch Free 2-64 YRS Pneumococcal 13 2017-10-06 Completed Universit y of Conjugate, PCV13 00:00:00 [facility] dical (Prevnar 13) Branch Influenza Virus 2017-10-06 Completed Universit y of Vaccine Quad IM, 00:00:00 [facility] dical Preserv and ABX Branch Free 2-64 YRS Pneumococcal 13 2017-10-06 Completed Universit y of Conjugate, PCV13 00:00:00 [facility] dical (Prevnar 13) Branch Influenza Virus 2017-10-06 Completed Universit y of Vaccine Quad IM, 00:00:00 [facility] dical Preserv and ABX Branch Free 6 MO-64 YRS Pneumococcal 13 2017-10-06 Completed Universit y of Conjugate, PCV13 00:00:00 [facility] dical (Prevnar 13) Branch Influenza Virus 2017-10-06 Completed Universit y of Vaccine Quad IM, 00:00:00 [facility] dical Preserv and ABX Branch Free 6 MO-64 YRS Pneumococcal 13 2017-10-06 Completed Universit y of Conjugate, PCV13 00:00:00 [facility] dical (Prevnar 13) Branch Influenza Virus 2017-10-06 Completed Universit y of Vaccine Quad IM, 00:00:00 [facility] dical Preserv and ABX Branch Free 2-64 YRS Pneumococcal 13 2017-10-06 Completed Universit y of Conjugate, PCV13 00:00:00 [facility] dical (Prevnar 13) Branch Influenza Virus 2017-10-06 Completed Universit y of Vaccine Quad IM, 00:00:00 [facility] dical Preserv and ABX Branch Free 2-64 YRS Pneumococcal 13 2017-10-06 Completed Universit y of Conjugate, PCV13 00:00:00 [facility] dical (Prevnar 13) Branch Influenza Virus 2017-10-06 Completed Universit y of Vaccine Quad IM, 00:00:00 [facility] dical Preserv and ABX Branch Free 2-64 YRS Pneumococcal 13 2017-10-06 Completed Universit y of Conjugate, PCV13 00:00:00 [facility] dical (Prevnar 13) Branch FLUCELVAX QUAD PF 2017-10-[address] 00:00:00 Hospital Pneumococcal 2017-10-06 Completed [facility] Conjugate 13-Valent 00:00:00 Hospi iqra FLUCELVAX QUAD PF 2017-10-[address] 00:00:00 Hospital Pneumococcal 2017-10-06 Completed [facility]ats[facility] Conjugate 13-Valent 00:00:00 Hospi iqra FLUCELVAX QUAD PF 2017-10-[address] 00:00:00 Hospital Pneumococcal 2017-10-06 Completed [facility]atsdin Conjugate 13-Valent 00:00:00 Hospi iqra Vital Signs Vital Name Observation Time Observation Value Comments Source Systolic blood 2021-08-14 15:39:00 130 mm[Hg] Univer sity of pressure [facility] Diastolic blood 2021-08-14 15:39:00 81 mm[Hg] Unive rsity of [facility] Heart rate 2021-08-14 15:39:00 76 /min [facility] Body temperature 2021-08-14 15:39:00 37 [facility] Respiratory rate 2021-08-14 15:39:00 18 /min [facility] Body height 2021-08-14 15:39:00 162.6 cm [facility] Body weight 2021-08-14 15:39:00 53.933 kg [facility] BMI 2021-08-14 15:39:00 20.41 kg/m2 [facility] Oxygen saturation in 2021-08-14 15:39:00 100 /min [facility] blood by [facility] Pulse oximetry Branch Systolic (mm Hg) 2022-09-07 19:49:00 Rao Gay Diastolic (mm Hg) 2022-09-07 19:49:00 Olimpia Gay Heart Rate 2022-09-07 19:49:[address] [facility] 2022-09-07 19:49:00 5 [ft_i] [facility] Weight 2022-09-07 19:49:00 [facility] BMI Calculated 2022-09-07 19:49:00 Memori al Coin Systolic (mm Hg) 2022-01-06 15:19:00 Rao rial Victor Hugo Diastolic (mm Hg) 2022-01-06 15:19:00 Mem orial Coin Heart Rate 2022-01-06 15:19:00 [facility] Respitory Rate 2022-01-06 15:19:00 Memori al Coin Height 2022-01-06 15:19:00 160.02 cm [facility] Weight 2022-01-06 15:19:00 [facility] BMI Calculated 2022-01-06 15:19:00 Memori al Coin Systolic blood 2021-12-16 15:00:00 138 mm[Hg] [facility] pressure Diastolic blood 2021-12-16 15:00:00 82 mm[Hg] Meth[facility] pressure Systolic (mm Hg) 2021-12-10 22:22:00 Rao rial Coin Diastolic (mm Hg) 2021-12-10 22:22:00 Mem orial Coin Heart Rate 2021-12-10 22:22:00 [facility] Respitory Rate 2021-12-10 22:22:00 Memori al Coin Height 2021-12-10 22:22:00 160.02 cm [facility] Weight 2021-12-10 22:22:00 [facility] BMI Calculated 2021-12-10 22:22:00 Memori al Coin Systolic (mm Hg) 2021-11-19 19:00:00 Rao rial Victor Hugo Diastolic (mm Hg) 2021-11-19 19:00:00 Mem orial Coin Heart Rate 2021-11-19 19:00:00 [facility] Respitory Rate 2021-11-19 19:00:00 Memori al Coin Height 2021-11-19 19:00:00 160.02 cm [facility] Weight 2021-11-19 19:00:00 [facility] BMI Calculated 2021-11-19 19:00:00 Memori al Victor Hugo Heart rate 2021-11-18 16:04:00 80 /min [facility] Systolic (mm Hg) 2021-04-08 14:16:00 Rao rial Coin Diastolic (mm Hg) 2021-04-08 14:16:00 Mem orial Victor Hugo Heart Rate 2021-04-08 14:16:00 [facility] Respitory Rate 2021-04-08 14:16:00 Memori al [facility] Hugo Height 2021-04-08 14:16:00 162.56 cm [facility] Weight 2021-04-08 14:16:00 [facility] BMI Calculated 2021-04-08 14:16:00 Memori al [facility] Hugo Systolic (mm Hg) 2020-12-22 20:47:00 Rao rial Victor Hugo Diastolic (mm Hg) 2020-12-22 20:47:00 Mem orial Coin Height 2020-12-22 20:47:00 162.56 cm [facility] Weight 2020-12-22 20:47:00 [facility] BMI Calculated 2020-12-22 20:47:00 Memori al [facility] Hugo Systolic (mm Hg) 2020-07-31 18:42:00 Rao rial Coin Diastolic (mm Hg) 2020-07-31 18:42:00 Mem orial Victor Hugo Heart Rate 2020-07-31 18:42:00 [facility] Respitory Rate 2020-07-31 18:42:00 Memori al [facility] Hugo Height 2020-07-31 18:42:00 162.56 cm [facility] Weight 2020-07-31 18:42:00 [facility] BMI Calculated 2020-07-31 18:42:00 Memori al Coin Temperature Oral (F) 2020-07-31 18:42:00 96.9 F [facility] Hugo Systolic (mm Hg) 2020-01-22 17:49:00 Rao rial Coin Diastolic (mm Hg) 2020-01-22 17:49:00 Mem orial Victor Hugo Heart Rate 2020-01-22 17:49:00 [facility] Respitory Rate 2020-01-22 17:49:00 Mem[facility] al Coin Height 2020-01-22 17:49:00 162.56 cm [facility] Weight 2020-01-22 17:49:00 [facility] BMI Calculated 2020-01-22 17:49:00 Mem[facility] al Coin Systolic (mm Hg) 2020-01-11 21:53:00 Rao rial Victor Hugo Diastolic (mm Hg) 2020-01-11 21:53:00 Mem orial Victor Hugo Heart Rate 2020-01-11 21:53:00 [facility] Height 2020-01-11 21:53:00 162.56 cm [facility] Hugo Weight 2020-01-11 21:53:00 [facility] BMI Calculated 2020-01-11 21:53:00 Memori al Victor Hugo Systolic (mm Hg) 2019-12-06 22:16:00 Rao rial Coin Diastolic (mm Hg) 2019-12-06 22:16:00 Mem orial Victor Hugo Heart Rate 2019-12-06 22:16:00 [facility] Respitory Rate 2019-12-06 22:16:00 Mem[facility] al Coin Height 2019-12-06 22:16:00 162.56 cm [facility] Weight 2019-12-06 22:16:00 [facility] BMI Calculated 2019-12-06 22:16:00 Memori al Coin BMI Calculated 2019-11-09 17:41:00 [facility] Height 2019-11-09 17:41:00 162.56 cm [facility] Hugo Weight 2019-11-09 17:41:00 [facility] Systolic (mm Hg) 2019-09-19 18:12:00 Rao rial Coin Diastolic (mm Hg) 2019-09-19 18:12:00 Mem orial Coin Heart Rate 2019-09-19 18:12:00 [facility] Respitory Rate 2019-09-19 18:12:00 Memori al [facility] Height 2019-09-19 18:12:00 162.56 cm [facility] Weight 2019-09-19 18:12:00 [facility] BMI Calculated 2019-09-19 18:12:00 Memori al [facility] Hugo Systolic (mm Hg) 2019-08-23 19:05:00 Rao rial Coin Diastolic (mm Hg) 2019-08-23 19:05:00 Mem orial Coin Heart Rate 2019-08-23 19:05:00 [facility] Respitory Rate 2019-08-23 19:05:00 Memori al Coin Height 2019-08-23 19:05:00 162.56 cm [facility] Weight 2019-08-23 19:05:00 [facility] BMI Calculated 2019-08-23 19:05:00 May Washburn Systolic (mm Hg) 2019-07-18 14:57:00 Rao Gay Diastolic (mm Hg) 2019-07-18 14:57:00 Olimpia Gay Heart Rate 2019-07-18 14:57:00 Yuliana Gay Respitory Rate 2019-07-18 14:57:00 May Washburn Height 2019-07-18 14:57:[address] [facility] Weight 2019-07-18 14:57:[address] [facility] BMI Calculated 2019-07-18 14:57:00 May Washburn Procedures Procedure Date / Time Performing Clinician Source Performed [place] [facility] 2022-07-21 21:48:[address] [facility] muscle(s); muscle(s) innervated by facial, trigeminal, cervical spinal and accessory nerves, bilateral (eg, for chronic migraine) EXTERNAL PROVIDER RECORDS 2022-03-08 05:01:00 Doctor Unassigned, [facility] EXTERNAL MAMMOGRAM 2021-08-31 13:00:00 Doctor Unassigned, [facility] Arthroplasty [facility] Laminectomy [facility] Plan of Care Planned Activity Planned Date Details Comments Source Future Scheduled 2024-10-[address] [facility] Test 00:00:00 (procedure) [code = [facility] [id number]] Future Scheduled 2024-10-[address] [facility] Test 00:00:00 (procedure) [code = [facility] [id number]] Future Scheduled 2024-10-[address] [facility] Test 00:00:00 (procedure) [code = [facility] [id number]] Future Scheduled 2022-10-02 HEPATITIS B VACCINES [facility] Test 08:41:32 (1 of 3 - 3-dose series) [code = HEPATITIS B VACCINES (1 of 3 - 3-dose series)] Future Scheduled 2022-10-02 Hepatitis C screening [facility] Test 08:41:32 (procedure) [code = 917186125] Future Scheduled 2022-10-02 Screening for [facility] Test 08:41:32 malignant neoplasm of cervix (procedure) [code = 298444735] Future Scheduled 2022-10-02 BREAST CANCER [facility] Test 08:41:32 SCREENING [code = BREAST CANCER SCREENING] Future Scheduled 2022-10-02 COLONOSCOPY SCREENING [facility] Test 08:41:32 [code = COLONOSCOPY SCREENING] Future Scheduled 2022-10-02 SHINGLES VACCINES (1 Met [facility] Test 08:41:32 of 2) [code = SHINGLES VACCINES (1 of 2)] Future Scheduled 2022-10-02 Pneumococcal Vaccine: [facility] Test 08:41:32 Pediatrics (0 to 5 Years) and At-Risk Patients (6 to 64 Years) (2 - PPSV23 if available, else PCV20) [code = Pneumococcal Vaccine: Pediatrics (0 to 5 Years) and At-Risk Patients (6 to 64 Years) (2 - PPSV23 if available, else PCV20)] Future Scheduled 2022-10-02 COVID-19 VACCINE (3 - [facility] Test 08:41:32 Booster for Moderna series) [code = COVID-19 VACCINE (3 - Booster for Moderna series)] Future Scheduled 2022-10-02 INFLUENZA VACCINE [facility] Test 08:41:32 [code = INFLUENZA VACCINE] Future Scheduled 2022-09-11 HEPATITIS B VACCINES Met [facility] Test 06:10:07 (1 of 3 - 3-dose series) [code = HEPATITIS B VACCINES (1 of 3 - 3-dose series)] Future Scheduled 2022-09-11 Hepatitis C screening [facility] Test 06:10:07 (procedure) [code = [id number]] Future Scheduled 2022-09-11 Screening for [facility] Test 06:10:07 malignant neoplasm of cervix (procedure) [code = 641077158] Future Scheduled 2022-09-11 BREAST CANCER [facility] Test 06:10:07 SCREENING [code = BREAST CANCER SCREENING] Future Scheduled 2022-09-11 COLONOSCOPY SCREENING [facility] Test 06:10:07 [code = COLONOSCOPY SCREENING] Future Scheduled 2022-09-11 SHINGLES VACCINES (1 Met [facility] Test 06:10:07 of 2) [code = SHINGLES VACCINES (1 of 2)] Future Scheduled 2022-09-11 Pneumococcal Vaccine: [facility] Test 06:10:07 Pediatrics (0 to 5 Years) and At-Risk Patients (6 to 64 Years) (2 - PPSV23 if available, else PCV20) [code = Pneumococcal Vaccine: Pediatrics (0 to 5 Years) and At-Risk Patients (6 to 64 Years) (2 - PPSV23 if available, else PCV20)] Future Scheduled 2022-09-11 COVID-19 VACCINE (3 - [facility] Test 06:10:07 Booster for Moderna series) [code = COVID-19 VACCINE (3 - Booster for Moderna series)] Future Scheduled 2022-09-11 INFLUENZA VACCINE Method [facility] Test 06:10:07 [code = INFLUENZA VACCINE] Future Scheduled 2022-09-06 HEPATITIS B VACCINES Met [facility] Test 14:11:02 (1 of 3 - 3-dose series) [code = HEPATITIS B VACCINES (1 of 3 - 3-dose series)] Future Scheduled 2022-09-06 Hepatitis C screening [facility] Test 14:11:02 (procedure) [code = 602520363] Future Scheduled 2022-09-06 Screening for [facility] Test 14:11:02 malignant neoplasm of cervix (procedure) [code = [id number]] Future Scheduled 2022-09-06 BREAST CANCER [facility] Test 14:11:02 SCREENING [code = BREAST CANCER SCREENING] Future Scheduled 2022-09-06 COLONOSCOPY SCREENING [facility] Test 14:11:02 [code = COLONOSCOPY SCREENING] Future Scheduled 2022-09-06 SHINGLES VACCINES (1 Met [facility] Test 14:11:02 of 2) [code = SHINGLES VACCINES (1 of 2)] Future Scheduled 2022-09-06 Pneumococcal Vaccine: [facility] Test 14:11:02 Pediatrics (0 to 5 Years) and At-Risk Patients (6 to 64 Years) (2 - PPSV23 or PCV20) [code = Pneumococcal Vaccine: Pediatrics (0 to 5 Years) and At-Risk Patients (6 to 64 Years) (2 - PPSV23 or PCV20)] Future Scheduled 2022-09-06 COVID-19 VACCINE (3 - [facility] Test 14:11:02 Booster for Moderna series) [code = COVID-19 VACCINE (3 - Booster for Moderna series)] Future Scheduled 2022-09-06 INFLUENZA VACCINE [facility] Test 14:11:02 [code = INFLUENZA VACCINE] Future Scheduled 2022-09-06 HEPATITIS B VACCINES Met [facility] Test 14:11:02 (1 of 3 - 3-dose series) [code = HEPATITIS B VACCINES (1 of 3 - 3-dose series)] Future Scheduled 2022-09-06 Hepatitis C screening [facility] Test 14:11:02 (procedure) [code = 787890837] Future Scheduled 2022-09-06 Screening for [facility] Test 14:11:02 malignant neoplasm of cervix (procedure) [code = 869750285] Future Scheduled 2022-09-06 BREAST CANCER [facility] Test 14:11:02 SCREENING [code = BREAST CANCER SCREENING] Future Scheduled 2022-09-06 COLONOSCOPY SCREENING [facility] Test 14:11:02 [code = COLONOSCOPY SCREENING] Future Scheduled 2022-09-06 SHINGLES VACCINES (1 Met [facility] Test 14:11:02 of 2) [code = SHINGLES VACCINES (1 of 2)] Future Scheduled 2022-09-06 Pneumococcal Vaccine: [facility] Test 14:11:02 Pediatrics (0 to 5 Years) and At-Risk Patients (6 to 64 Years) (2 - PPSV23 or PCV20) [code = Pneumococcal Vaccine: Pediatrics (0 to 5 Years) and At-Risk Patients (6 to 64 Years) (2 - PPSV23 or PCV20)] Future Scheduled 2022-09-06 COVID-19 VACCINE (3 - [facility] Test 14:11:02 Booster for Moderna series) [code = COVID-19 VACCINE (3 - Booster for Moderna series)] Future Scheduled 2022-09-06 INFLUENZA VACCINE [facility] Test 14:11:02 [code = INFLUENZA VACCINE] [...] [facility] cervix (procedure) [code = 342877585] Future Scheduled [address] [facility] Test 00:[facility]:00 malignant neoplasm of [facility] cervix (procedure) [code = 190488635] Future Scheduled [address] [facility] Test 00:00:00 malignant neoplasm of [facility] cervix (procedure) [code = 207432485] Future Scheduled 1983 DTAP/TDAP/TD VACCINES [facility] [...] [facility] Center breast (procedure) [code = 388281299] Future Scheduled [address] [facility] Test 00:00:00 (combo) [code = CT Medical C enter Colonography (combo)] Future Scheduled [address] [facility] Test 00:00:00 malignant neoplasm of [facility] colon (procedure) [code = 181993454] Future Scheduled [address] [facility] Test 00:00:00 malignant neoplasm of [facility] colon (procedure) [code = 306828020] Future Scheduled [address] [facility] Test 00:00:00 malignant neoplasm of [facility] colon (procedure) [code = 459253597] Future Scheduled [address] [facility] Test 00:00:00 malignant neoplasm of [facility] colon (procedure) [code = 861354533] Future Scheduled 1964 Sigmoidoscopy [code = [facility] Test 00:[facility] S[facility]oscopy] Medical Adame r Future Scheduled [address] [facility] Test 00:00:00 malignant neoplasm of [facility] breast (procedure) [code = 911838615] Future Scheduled [address] [facility] Test 00:00:00 (combo) [code = CT Medical C enter Colonography (combo)] Future Scheduled [address] [facility] Test 00:00:00 malignant neoplasm of [facility] colon (procedure) [code = 727118558] Future Scheduled [address] [facility] Test 00:00:00 malignant neoplasm of [facility] colon (procedure) [code = 885216118] Future Scheduled [address] [facility] Test 00:00:00 malignant neoplasm of [facility] colon (procedure) [code = 200571420] Future Scheduled [address] [facility] Test 00:00:00 malignant neoplasm of [facility] colon (procedure) [code = 292158917] Future Scheduled 1964 Sigmoidoscopy [facility]code [facility] 00:[facility] S[facility]oidoscopy] Medical Adame r Future Scheduled [address] [facility] Test 00:00:00 malignant neoplasm of [facility] breast (procedure) [code = 758785816] Future Scheduled [address] [facility] Test 00:00:00 (combo) [code = CT Medical C enter Colonography (combo)] Future Scheduled [address] [facility] Test 00:00:00 malignant neoplasm of [facility] colon (procedure) [code = 679910090] Future Scheduled [address] [facility] Test 00:00:00 malignant neoplasm of [facility] colon (procedure) [code = 892301999] Future Scheduled [address] [facility] Test 00:00:00 malignant neoplasm of [facility] colon (procedure) [code = 470840512] Future Scheduled [address] [facility] Test 00:00:00 malignant neoplasm of [facility] colon (procedure) [code = 429042124] Future Scheduled 1964 [facility]oid[facility]oscopy] Medical Cente r Encounters Start End Encounter Admission Attending Care Care Encounter Source Date/Time Date/Time Type Type Clinicians Facility Department ID 2021-06-08 Inpatient EL Eulogio, HCAC[facility] DAYS [id number] [facility] 10:30:00 [facility] [id number] [facility] 2021-06-05 Inpatient EL Eulogio, HCACL DAYS [id number] [facility] 11:30:00 Commerce [id number] [facility] 2021-05-19 Inpatient Eulogio, [facility]AC[facility] DAYS [id number] [facility] 07:30:00 Commerce [id number] [facility] 2021-05-15 Inpatient EL Eulogio, HCACL DAYS [id number] [facility] 14:00:00 Commerce [id number] [facility] 2022-11-15 2022-11-15 Outpatient MHIE IE [id number] Memoria 13:00:00 13:00:00 24 l Coin 2022-11-15 2022-11-15 Outpatient IE IE [id number] Memoria 13:00:00 13:00:00 24 l Coin 2022-11-15 2022-11-15 Outpatient IE IE [id number] Memoria 13:00:00 13:00:[address] [facility] 2022-10-29 2022-10-29 Outpatient TONY OLGUIN [facility] [id number] [facility] 13:30:00 13:30:00 ity [facility] 2022-09-28 2022-09-28 Ambulatory nullFlavo MNA [id number] Memoria 16:00:00 16:00:00 Pre-Reg r Neurology 26 l Elvin Gay 2022-09-28 2022-09-28 Ambulatory nullFlavo MNA [id number] Memoria 16:00:00 16:00:00 Pre-Reg r Neurology 26 l Elvin Gay 2022-09-28 2022-09-28 Outpatient Krell, MHMISCHER MHMISCHER [id number] 11:00:00 11:00:00 Ab 26 Abran 2022-09-28 2022-09-28 Outpatient BINTA OrtegaMISCHER MHMISCHER [id number] 11:00:00 11:00:00 Ab 26 Abran 2022-09-13 2022-09-13 Outpatient MHIE MHIE [id number] Memoria 13:00:00 13:00:00 26 baldemar Gay 2022-09-13 2022-09-13 Outpatient MHIE MHIE [id number] Memoria 13:00:00 13:00:00 26 l Victor Hugo 2022-09-13 2022-09-13 Outpatient MHIE MHIE [id number] Memoria 13:00:00 13:00:00 26 baldemar Gay 2022-09-07 2022-09-08 Outpatient nullFlavo MNA [id number] Memoria 19:45:00 04:59:59 r Neurology 25 l Elvin Gay 2022-09-07 2022-09-08 Outpatient nullFlavo MNA [id number] Memoria 19:45:00 04:59:59 r Neurology 25 l Elvin Gay 2022-09-07 2022-09-08 Outpatient nullFlavo MNA [id number] Memoria 19:45:00 04:59:59 r Neurology 25 l Elvin Gay 2022-09-07 2022-09-07 Outpatient ShannonKEITHSCHER MHMISCHER [id number] 14:45:00 23:59:59 Ab 25 Abran 2022-09-07 2022-09-07 Outpatient ShannonBINTADANIELLESCHER MHMISCHER [id number] 14:45:00 23:59:59 Ab 25 Abran 2022-09-07 2022-09-07 Outpatient MHIE MHIE [id number] Memoria 14:45:00 14:45:00 25 baldemar Gay 2022-09-07 2022-09-07 Outpatient MHIE MHIE [id number] Memoria 14:45:00 14:45:00 25 baldemar Gay 2022-08-20 2022-08-20 Outpatient TONY OLGUIN [facility] [id number] [facility] 10:30:00 10:30:00 [facility] 2022-08-13 2022-08-13 Pre Visit DASH Anderson [id number] [id number] Univers 00:00:00 00:00:00 Outreach Lissy ACOSTA 350.1.13.10 i ty karthik COLEY 4.2.7.2.686 Kasi arcos [id number] [address] 2022-07-21 2022-07-22 Outpatient nullFlavo MNA [id number] Memoria 21:00:00 04:59:59 r Neurology 23 l [place] Coin 2022-07-21 2022-07-22 Outpatient nullFlavo MNA [id number] Memoria 21:00:00 04:59:59 r Neurology 23 l [place] Coin 2022-07-21 2022-07-22 Outpatient nullFlavo MNA [id number] Memoria 21:00:00 04:59:59 r Neurology 23 l Elvin Victor Hugo 2022-07-21 2022-07-21 Outpatient KEITH OrtegaSCHER MHMISCHER [id number] 16:00:00 23:59:59 Ab 23 Abran 2022-07-21 2022-07-21 Outpatient KEITH OrtegaSCHZURDO MHMISCHER [id number] 16:00:00 23:59:59 Ab 23 Abran 2022-07-21 2022-07-21 Outpatient MHIE MHIE [id number] Memoria 16:00:00 16:00:00 23 l Victor Hugo 2022-07-21 2022-07-21 Outpatient MHIE MHIE [id number] Memoria 16:00:00 16:00:00 23 l Coin 2022-04-13 2022-04-13 Ambulatory nullFlavo MNA [id number] Memoria 18:15:00 18:15:00 Pre-Reg r Neurology 22 l [place] Coin 2022-04-13 2022-04-13 Ambulatory nullFlavo MNA [id number] Memoria 18:15:00 18:15:00 Pre-Reg r Neurology 22 l [place] Victor Hugo 2022-04-13 2022-04-13 Ambulatory nullFlavo MNA [id number] Memoria 18:15:00 18:15:00 Pre-Reg r Neurology 22 l [place] Victor Hugo 2022-04-13 2022-04-13 Outpatient MHIE MHIE [id number] Memoria 13:15:00 13:15:00 22 baldemar Gay 2022-04-13 2022-04-13 Outpatient MHIE MHIE [id number] Memoria 13:15:00 13:15:00 22 baldemar Gay 2022-04-13 2022-04-13 Outpatient Shannon, MHMISCHER MHMISCHER [id number] 13:15:00 13:15:00 Ab 22 Abran 2022-04-13 2022-04-13 Outpatient Shannon, MHMISCHER MHMISCHER [id number] 13:15:00 13:15:00 Ab 22 Abran 2022-03-08 2022-03-08 Orders Doctor GEOR[place] 1.2.840.114 [id number] 00:00:00 00:00:00 Only Unassigned, LISA 350.1.13.10 ity of [place] [facility] 4.2.7.2.686 Luis as [phone] [address] 2022-02-11 2022-02-12 Outpatient nullFlavo MNA [id number] Memoria 18:00:00 04:59:59 r Neurology 19 l Elvni Gay 2022-02-11 2022-02-12 Outpatient nullFlavo MNA [id number] Memoria 18:00:00 04:59:59 r Neurology 19 l Elvin Gay 2022-02-11 2022-02-12 Outpatient nullFlavo MNA [id number] Memoria 18:00:00 04:59:59 r Neurology 19 l Elvin Gay 2022-02-11 2022-02-11 Outpatient Shannon, MHMISCHER MHMISCHER [id number] 13:00:00 23:59:59 Ab 19 Abran 2022-02-11 2022-02-11 Outpatient Shannon, MHMISCHER MHMISCHER [id number] 13:00:00 23:59:59 Ab 19 Abran 2022-02-11 2022-02-11 Outpatient MHIE MHIE [id number] Memoria 13:00:00 13:00:00 19 baldemar Gay 2022-02-11 2022-02-11 Outpatient MHIE MHIE [id number] Memoria 13:00:00 13:00:00 19 l Victor Hugo 2022-01-06 2022-01-07 Outpatient nullFlavo MNA [id number] Memoria 15:15:00 05:59:59 r Neurology 21 l Elvin Gay 2022-01-06 2022-01-07 Outpatient nullFlavo MNA [id number] Memoria 15:15:00 05:59:59 r Neurology 21 l Elvin Gay 2022-01-06 2022-01-07 Outpatient nullFlavo MNA [id number] Memoria 15:15:00 05:59:59 r Neurology 21 l Elvin Gay 2022-01-06 2022-01-06 Outpatient KEITH OrtegaSCHER MHMISCHER [id number] 09:15:00 23:59:59 Ab 21 Abran 2022-01-06 2022-01-06 Outpatient KEITH OrtegaSCHER MHMISCHER [id number] 09:15:00 23:59:59 Ab 21 Abran 2022-01-06 2022-01-06 Outpatient MHIE MHIE [id number] Memoria 09:15:00 09:15:00 21 baldemar Gay 2022-01-06 2022-01-06 Outpatient MHIE MHIE [id number] Memoria 09:15:00 09:15:00 21 baldemar Gay 2021-12-16 2021-12-16 Treatment Beverly Cartagenagail 1.2.840.1 [id number] Methodi 09:00:00 10:00:[address] 3.430.2.7 Hospit a .3.932674 l .8 2021-12-16 2021-12-16 Treatment Beverly Cartagena Candice 1.2.840.1 [id number] Methodi 09:00:00 10:00:[address] 3.430.2.7 Hospit a .3.405999 l .8 2021-12-16 2021-12-16 Travel 1.2.840.1 1.2.802.604 9457 [id number] Methodi 00:00:00 00:00:[address] 3.430.2.7 0.2.7.3.698 Ho spita .3.904822 084.8 l .8 2021-12-16 2021-12-16 Travel 1.2.840.1 1.2.201.773 9914 052523 Methodi 00:00:00 00:00:[address] 3.430.2.7 0.2.7.3.698 Ho spita .3.762231 084.8 l .8 2021-12-10 2021-12-11 Outpatient nullFlavo MNA [id number] Memoria 22:15:00 05:59:59 r Neurology 20 l Elvin Gay 2021-12-10 2021-12-11 Outpatient nullFlavo MNA [id number] Memoria 22:15:00 05:59:59 r Neurology 20 l Elvin Gay 2021-12-10 2021-12-11 Outpatient nullFlavo MNA [id number] Memoria 22:15:00 05:59:59 r Neurology 20 l Elvin Gay 2021-12-10 2021-12-10 Outpatient KEITH OrtegaSCHZURDO MISCHER [id number] 16:15:00 23:59:59 Ab 20 Abran 2021-12-10 2021-12-10 [id number] 16:15:00 23:59:59 Ab 20 Abran 2021-12-10 2021-12-10 Ambulatory nullFlavo MNA [id number] Memoria 22:15:00 22:15:00 Pre-Reg r Neurology 17 l Elvin Gay 2021-12-10 2021-12-10 Ambulatory nullFlavo MNA [id number] Memoria 22:15:00 22:15:00 Pre-Reg r Neurology 17 l Elvin Gay 2021-12-10 2021-12-10 Ambulatory nullFlavo MNA [id number] Memoria 22:15:00 22:15:00 Pre-Reg r Neurology 17 l [place] aGy 2021-12-10 2021-12-10 Outpatient MHIE MHIE [id number] Memoria 16:15:00 16:15:00 20 l Victor Hugo 2021-12-10 2021-12-10 Outpatient MHIE MHIE [id number] Memoria 16:15:00 16:15:00 17 l Victor Hugo 2021-12-10 2021-12-10 Outpatient MHIE MHIE [id number] Memoria 16:15:00 16:15:00 20 baldemar Gay 2021-12-10 2021-12-10 Outpatient MHIE MHIE [id number] Memoria 16:15:00 16:15:00 17 baldemar Gay 2021-12-10 2021-12-10 Outpatient Shannon MISCHER MHMISCHER [id number] 16:15:00 16:15:00 Ab 17 Abran 2021-12-10 2021-12-10 [facility] [id number] 16:15:00 16:15:00 Ab 17 Abran 2021-11-30 2021-11-30 Treatment Beverly Cartagena Candice 1.2.840.1 [id number] Methodi 09:00:00 10:00:00 Caprice Landa[address]de [address]03.[address] 3.430.2.7 Hospit a .3.467253 l .8 2021-11-30 2021-11-30 Treatment Beverly Cartagena Candice 1.2.840.1 [id number] Methodi 09:00:00 10:00:00 Caprice [address]de [address] 3.430.2.7 Hospit a .3.057596 l .8 2021-11-30 2021-11-30 Travel 1.2.840.1 1.2.933.785 6303 [id number] Methodi 00:00:00 00:00:[address] 3.430.2.7 0.2.7.3.698 Ho spita .3.597026 084.8 l .8 2021-11-30 2021-11-30 Travel 1.2.840.1 1.2.308.962 6437 117056 Methodi 00:00:00 00:00:[address] 3.430.2.7 0.2.7.3.698 Ho spita .3.818308 084.8 l .8 2021-11-19 2021-11-20 Outpatient nullFlavo MNA [id number] Memoria 19:00:00 05:59:59 r Neurology 18 l Elvin Gay 2021-11-19 2021-11-20 Outpatient nullFlavo MNA [id number] Memoria 19:00:00 05:59:59 r Neurology 18 l Elvin Gay 2021-11-19 2021-11-20 Outpatient nullFlavo MNA [id number] Memoria 19:00:00 05:59:59 r Neurology 18 l Elvin Gay 2021-11-19 2021-11-19 Outpatient KEITH OrtegaSCHER MHMISCHER [id number] 13:00:00 23:59:59 Ab 18 Abran 2021-11-19 2021-11-19 Outpatient KEITH OrtegaSCHER MHMISCHER [id number] 13:00:00 23:59:59 Ab 18 Abran 2021-11-19 2021-11-19 Outpatient MHIE MHIE [id number] Memoria 13:00:00 13:00:00 18 l Victor Hugo 2021-11-19 2021-11-19 Outpatient MHIE MHIE [id number] Memoria 13:00:00 13:00:00 18 l Victor Hugo 2021-11-18 2021-11-18 Treatment Beverly Cartagena Candice 1.2.840.1 [id number] Methodi 10:00:00 11:00:00 Nenita Marshall 31088.1.[address] 3.430.2.7 Hospit a .3.674750 l .8 2021-11-18 2021-11-18 Treatment EulogioBeverly patel Candice 1.2.840.1 [id number] Methodi 10:00:00 11:00:00 Nenita Marshall 12522.1.[address] 3.430.2.7 Hospit a .3.461661 l .8 2021-11-17 2021-11-17 Evaluation Beverly Cartagena Candice 1.2.840. 1 [id number] Methodi 08:00:00 09:00:00 Caprice [address] 80195.1.[address] 3.430.2.7 Hospit a .3.888364 l .8 2021-11-17 2021-11-17 Evaluation Beverly Cartagena Candice 1.2.840. 1 [id number] Methodi 08:00:00 09:00:00 Caprice [address]de [address] 3.430.2.7 Hospit a .3.713343 l .8 2021-11-17 2021-11-17 Plan of 1.2.840.1 [id number] 0358 Methodi 00:00:00 00:00:[address] Documentat 3.430.2.7 Hos rene ion .3.836491 l .8 2021-11-17 2021-11-17 Plan of 1.2.840.1 [id number] 273799 1331 Methodi 00:00:00 00:00:[address] Documentat 3.430.2.7 Hos rene ion .3.249836 l .8 2021-11-17 2021-11-17 Travel 1.2.840.1 1.2.757.589 3413 763310 Methodi 00:00:00 00:00:[address] 3.430.2.7 0.2.7.3.698 Ho spita .3.089958 084.8 l .8 2021-11-17 2021-11-17 Travel 1.2.840.1 1.2.895.504 3325 403000 Methodi 00:00:00 00:00:[address] 3.430.2.7 0.2.7.3.698 Ho spita .3.480224 084.8 l .8 2021-11-12 2021-11-12 Transcribe Eulogio, 1.2.840.1 [id number] Methodi 00:00:00 00:00:00 Orders Beverly 71640.1.[address] Candice 3.430.2.7 Hospit a .3.797704 l .8 2021-11-12 2021-11-12 Travel 1.2.840.1 1.2.834.066 3597 [id number] Methodi 00:00:00 00:00:[address] 3.430.2.7 0.2.7.3.698 Ho spita .3.971452 084.8 l .8 2021-11-12 2021-11-12 Transcribe Eulogio, 1.2.840.1 [id number] Methodi 00:00:00 00:00:00 Orders Beverly 21324.1.[address] Candice 3.430.2.7 Hospit a .3.108524 l .8 2021-11-12 2021-11-12 Travel 1.2.840.1 1.2.936.300 3806 [id number] Methodi 00:00:00 00:00:[address] 3.430.2.7 0.2.7.3.698 Ho spita .3.184642 084.8 l .8 2021-09-04 2021-09-06 Outside nullFlavo MNA [id number] Memoria 14:17:35 04:59:59 Medical r Neurology 02 l Records Elvin Gay 2021-09-04 2021-09-06 Outside nullFlavo MNA [id number] Memoria 14:17:35 04:59:59 Medical r Neurology 02 l Records Elvin Rashidann 2021-09-04 2021-09-06 Outside nullFlavo MNA [id number] Memoria 14:17:35 04:59:59 Medical r Neurology 02 l Records Elvin Gay 2021-09-04 2021-09-05 Outpatient MHMISCHER MHMISCHER [id number] 09:17:35 23:59:59 02 2021-09-04 2021-09-05 Outpatient MHMISCHER MHMISCHER [id number] 09:17:35 23:59:59 02 2021-08-31 2021-08-31 Outpatient EULOGIO, [facility] [id number] [place] 00:00:00 00:00:00 LIND 800 Method i 2021-08-27 2021-08-27 Outpatient EULOGIO, [facility] [id number] [place] [address] 00:00:00 00:00:00 LIND 462 Method i 2021-08-24 2021-08-26 Outside nullFlavo MNA [id number] Memoria 14:49:32 04:59:59 Medical r Neurology 01 l Records Elvin Gay 2021-08-24 2021-08-26 Outside nullFlavo MNA [id number] Memoria 14:49:32 04:59:59 Medical r Neurology 01 l Records Elvin Gay 2021-08-24 2021-08-26 Outside nullFlavo MNA [id number] Memoria 14:49:32 04:59:59 Medical r Neurology 01 l Records Elvin Gay 2021-08-24 2021-08-25 Outpatient MHMISCHER MHMISCHER [id number] 09:49:32 23:59:59 2021-08-24 2021-08-25 Outpatient MHMISCHER MHMISCHER [id number] 09:49:32 23:59:59 2021-08-24 2021-08-24 Outpatient EULOGIO, [facility] [id number] [place] 00:00:00 00:00:00 LIND 384 Method i 2021-08-20 2021-08-20 Outpatient EULOGIO, [facility] [id number] [place] 00:00:00 00:00:00 LIND 342 Method i 2021-08-19 2021-08-19 Outpatient EULOGIO, [facility] [id number] [place] 00:00:00 00:00:00 BEVERLY 343 Method i 2021-08-14 2021-08-14 Office Tony Das [facility] 1.2.840.114 [id number] Univers 10:12:38 10:59:24 Visit Bhupinder Lopez 350.1.13.10 it y [facility] 4.2.7.2.686 [facility] [phone] [address] 2021-08-14 2021-08-14 Outpatient R TONY DAS [facility] [id number] [facility] 10:15:00 10:15:00 ity [facility] 2021-08-10 2021-08-10 Outpatient EULOGIO, [facility] [id number] [place] 00:00:00 00:00:00 BEVERLY 230 Method i 2021-08-06 2021-08-06 Outpatient EULOGIO, [facility] [id number] [place] 00:00:00 00:00:00 BEVERLY 205 Method i 2021-07-30 2021-07-30 Outpatient EULOGIO, [facility] [id number] [place] 00:00:00 00:00:00 BEVERLY 805 Method i 2021-07-27 2021-07-27 Outpatient EULOGIO, [facility] [id number] [place] 00:00:00 00:00:00 BEVERLY 774 Method i 2021-07-23 2021-07-23 Outpatient EULOGIO, [facility] [id number] [place] 00:00:00 00:00:00 BEVERLY 727 Method i 2021-07-20 2021-07-20 Outpatient EULOGIO, [facility] [id number] [place] 00:00:00 00:00:00 BEVERLY 774 Method i 2021-07-09 2021-07-09 Outpatient EULOGIO, [facility] [id number] [place] 00:00:00 00:00:00 BEVERLY 643 Method i 2021-07-08 2021-07-08 Outpatient EULOGIO, [facility] [id number] [place] 00:00:00 00:00:00 BEVERLY 592 Method i 2021-07-02 2021-07-02 Outpatient EULOGIO, [facility] [id number] [place] 00:00:00 00:00:00 BEVERLY 982 Method i 2021-06-23 2021-06-23 Outpatient EULOGIO [facility] [id number] [place] 00:00:00 00:00:00 BEVERLY [address] 2021-06-09 2021-06-11 Inpatient ЕЛЕНА AlejoCL MEDI.01 [id number] [facility] 16:03:00 15:30:00 Reji [id number] [facility] 2021-06-09 2021-06-09 Outpatient Jason Bearden HCACL HCACL [id number] [id number] [facility] 16:08:00 16:08:00 79 [facility] 2021-04-08 2021-04-09 Outpatient nullFlavo MNA [id number] Memoria 14:00:00 04:59:59 r Neurology 16 l Elvin Coin 2021-04-08 2021-04-09 Outpatient nullFlavo MNA [id number] Memoria 14:00:00 04:59:59 r Neurology 16 l Elvin Gay 2021-04-08 2021-04-09 Outpatient nullFlavo MNA [id number] Memoria 14:00:00 04:59:59 r Neurology 16 l Elvin Gay 2021-04-08 2021-04-08 Outpatient JANEE Ortega DANIELLESCHER [id number] 09:00:00 23:59:59 Ab Ny Abran 2021-04-08 2021-04-08 Outpatient JANEE Ortega DANIELLESCHZURDO [id number] 09:00:00 23:59:59 Ab Ny Abran 2021-04-08 2021-04-08 Outpatient MHIE MHIE [id number] Memoria 09:00:00 09:00:00 16 l Victor Hugo 2021-04-08 2021-04-08 Outpatient MHIE MHIE [id number] Memoria 09:00:00 09:00:00 16 l Victor Hugo 2020-12-26 2020-12-28 Outside nullFlavo MNA [id number] Memoria 17:32:20 05:59:59 Medical r Neurology 00 l Records Elvin Gay 2020-12-26 2020-12-28 Outside nullFlavo MNA [id number] Memoria 17:32:20 05:59:59 Medical r Neurology 00 l Records Elvin Gay 2020-12-26 2020-12-28 Outside nullFlavo MNA [id number] Memoria 17:32:20 05:59:59 Medical r Neurology 00 l Records Elvin Gay 2020-12-26 2020-12-27 Outpatient MHMISCHER MHMISCHER [id number] 11:32:20 23:59:59 00 2020-12-26 2020-12-27 Outpatient MHMISCHER MHMISCHER [id number] 11:32:20 23:59:59 00 2020-12-22 2020-12-23 Outpatient nullFlavo MNA [id number] Memoria 20:30:00 05:59:59 r Neurology 15 l Elvin Gay 2020-12-22 2020-12-23 Outpatient nullFlavo MNA [id number] Memoria 20:30:00 05:59:59 r Neurology 15 l Elvin Gay 2020-12-22 2020-12-23 Outpatient nullFlavo MNA [id number] Memoria 20:30:00 05:59:59 r Neurology 15 l Elvin Gay 2020-12-22 2020-12-22 Outpatient Shannon MHMISCHER MHMISCHER [id number] 14:30:00 23:59:59 Ab Nilsa Osullivan 2020-12-22 2020-12-22 Outpatient KEITH OrtegaSCHER MHMISCHER [id number] 14:30:00 23:59:59 Ab 15 Abran 2020-12-22 2020-12-22 Outpatient MHIE MHIE [id number] Memoria 14:30:00 14:30:00 15 baldemar Gay 2020-12-22 2020-12-22 Outpatient MHIE MHIE [id number] Memoria 14:30:00 14:30:00 15 baldemar Gay 2020-12-04 2020-12-04 Ambulatory nullFlavo MNA [id number] Memoria 19:15:00 19:15:00 Pre-Reg r Neurology 14 l Elvin Gay 2020-12-04 2020-12-04 Ambulatory nullFlavo MNA [id number] Memoria 19:15:00 19:15:00 Pre-Reg r Neurology 14 l Elvin Gay 2020-12-04 2020-12-04 Ambulatory nullFlavo MNA [id number] Memoria 19:15:00 19:15:00 Pre-Reg r Neurology 14 l Elvin Gay 2020-12-04 2020-12-04 Outpatient MHIE MHIE [id number] Memoria 13:15:00 13:15:00 14 baldemar Gay 2020-12-04 2020-12-04 Outpatient MHIE MHIE [id number] Memoria 13:15:00 13:15:00 14 baldemar Gay 2020-12-04 2020-12-04 Outpatient Shannon, MHMISCHER MHMISCHER [id number] 13:15:00 13:15:00 Ab 14 Abran 2020-12-04 2020-12-04 Outpatient Shannon, MHMISCHER MHMISCHER [id number] 13:15:00 13:15:00 Ab 14 Abran 2020-09-30 2020-09-30 Outpatient [facility] [id number] [address] [place] [address] 00:00:00 00:00:00 LIND 91 Method i 2020-07-31 2020-08-01 Outpatient nullFlavo MNA [id number] Memoria 18:15:00 04:59:59 r Neurology 13 l Elvin Victor Hugo 2020-07-31 2020-08-01 Outpatient nullFlavo MNA [id number] Memoria 18:15:00 04:59:59 r Neurology 13 baldemar [place] 2020-07-31 2020-08-01 Outpatient nullFlavo MNA [id number] Memoria 18:15:00 04:59:59 r Neurology 13 l [place] Victor Hugo 2020-07-31 2020-07-31 Outpatient Shannon, MHMISCHER MHMISCHER [id number] 13:15:00 23:59:59 Ab 13 Abran 2020-07-31 2020-07-31 Outpatient Shannon, MHMISCHER MHMISCHER [id number] 13:15:00 23:59:59 Ab 13 Abran 2020-07-31 2020-07-31 Outpatient MHIE MHIE [id number] Memoria 13:15:00 13:15:00 13 baldemar Victor Hugo 2020-07-31 2020-07-31 Outpatient MHIE MHIE [id number] Memoria 13:15:00 13:15:00 13 baldemar Coin 2020-07-29 2020-07-29 Ambulatory nullFlavo MNA [id number] Memoria 16:15:00 16:15:00 Pre-Reg r Neurology 12 l Elvin Coin 2020-07-29 2020-07-29 Ambulatory nullFlavo MNA [id number] Memoria 16:15:00 16:15:00 Pre-Reg r Neurology 12 l Elvin Coin 2020-07-29 2020-07-29 Ambulatory nullFlavo MNA [id number] Memoria 16:15:00 16:15:00 Pre-Reg r Neurology 12 baldemar Oconnor Coin 2020-07-29 2020-07-29 [id number] 11:15:00 11:15:00 Ab 12 Abran 2020-07-29 2020-07-29 [id number] 11:15:00 11:15:00 Ab 12 Abran 2020-06-06 2020-06-06 Ambulatory nullFlavo MNA [id number] Memoria 18:00:00 18:00:00 Pre-Reg r Neurology 11 l Elvin Coin 2020-06-06 2020-06-06 Ambulatory nullFlavo MNA [id number] Memoria 18:00:00 18:00:00 Pre-Reg r Neurology 11 l Elvin Coin 2020-06-06 2020-06-06 Ambulatory nullFlavo MNA [id number] Memoria 18:00:00 18:00:00 Pre-Reg r Neurology 11 l Elvin Victor Hugo 2020-06-06 2020-06-06 Outpatient MHIE MHIE [id number] Memoria 13:00:00 13:00:00 12 baldemar Victor Hugo 2020-06-06 2020-06-06 Outpatient MHIE MHIE [id number] Memoria 13:00:00 13:00:00 11 baldemar Coin 2020-06-06 2020-06-06 Outpatient MHIE MHIE [id number] Memoria 13:00:00 13:00:00 12 baldemar Victor Hugo 2020-06-06 2020-06-06 Outpatient MHIE MHIE [id number] Memoria 13:00:00 13:00:00 11 l Victor Hugo 2020-06-06 2020-06-06 [facility] Shannon[facility] [id number] 13:00:00 13:00:00 Ab 11 Abran 2020-06-06 2020-06-06 Outpatient Michellejames, MHMISCHER MHMISCHER [id number] 13:00:00 13:00:00 Ab 11 Abran 2020-03-12 2020-03-13 Outpatient nullFlavo MNA [id number] Memoria 18:45:00 04:59:59 r Neurology 09 l [place] Coin 2020-03-12 2020-03-13 Outpatient nullFlavo MNA [id number] Memoria 18:45:00 04:59:59 r Neurology 09 l [place] Victor Hugo 2020-03-12 2020-03-13 Outpatient nullFlavo MNA [id number] Memoria 18:45:00 04:59:59 r Neurology 09 l [place] Coin 2020-03-12 2020-03-12 Outpatient BINTA OrtegaVASCHER MHMISCHER [id number] 13:45:00 23:59:59 Ab 09 Abran 2020-03-12 2020-03-12 [facility] [id number] 13:45:00 23:59:59 Ab 09 Abran 2020-03-12 2020-03-12 Outpatient MHIE MHIE [id number] Memoria 13:45:00 13:45:00 09 baldemar Coin 2020-03-12 2020-03-12 Outpatient MHIE MHIE [id number] Memoria 13:45:00 13:45:00 09 baldemar Coin 2020-01-22 2020-01-23 Outpatient nullFlavo MNA [id number] Memoria 17:45:00 05:59:59 r Neurology 10 l [place] Victor Hugo 2020-01-22 2020-01-23 Outpatient nullFlavo MNA [id number] Memoria 17:45:00 05:59:59 r Neurology 10 l [place] Coin 2020-01-22 2020-01-23 Outpatient nullFlavo MNA [id number] Memoria 17:45:00 05:59:59 r Neurology 10 l [place] Victor Hugo 2020-01-22 2020-01-22 Outpatient BINTA OrtegaMISCHER MISCHER [id number] 11:45:00 23:59:59 Ab 10 Abran 2020-01-22 2020-01-22 Outpatient Shannon DANIELLESCHER MISCHER [id number] 11:45:00 23:59:59 Ab 10 [facility] 2020-01-22 2020-01-22 Outpatient MHIE MHIE [id number] Memoria 11:45:00 11:45:[address] [facility] 2020-01-22 2020-01-22 Outpatient MHIE MHIE [id number] Memoria 11:45:00 11:45:[address] [facility] 2020-01-11 2020-01-12 Outpatient nullFlavo MNA [id number] Memoria 20:15:00 05:59:59 r Neurology 08 l [place] Victor Hugo 2020-01-11 2020-01-12 Outpatient nullFlavo MNA [id number] Memoria 20:15:00 05:59:59 r Neurology 08 l [place] Victor Hugo 2020-01-11 2020-01-12 Outpatient nullFlavo MNA [id number] Memoria 20:15:00 05:59:59 r Neurology 08 l [place] Victor Hugo 2020-01-11 2020-01-11 [facility] [id number] 14:15:00 23:59:59 Ab 08 Abran 2020-01-11 2020-01-11 [facility] [id number] 14:15:00 23:59:59 Ab 08 [facility] 2020-01-11 2020-01-11 Ambulatory nullFlavo MNA [id number] Memoria 20:15:00 20:15:00 Pre-Reg r Neurology 07 l [place] Coin 2020-01-11 2020-01-11 Ambulatory nullFlavo MNA [id number] Memoria 20:15:00 20:15:00 Pre-Reg r Neurology 07 l [place] Coin 2020-01-11 2020-01-11 Ambulatory nullFlavo MNA [id number] Memoria 20:15:00 20:15:00 Pre-Reg r Neurology 07 l [place] Coin 2020-01-11 2020-01-11 Outpatient MHIE IE [id number] Memoria 14:15:00 14:15:00 08 l Victor Hugo 2020-01-11 2020-01-11 Outpatient MHIE MHIE [id number] Memoria 14:15:00 14:15:00 07 l 2020-01-11 2020-01-11 Outpatient MHIE MHIE [id number] Memoria 14:15:00 14:15:00 08 l Coin 2020-01-11 2020-01-11 Outpatient MHIE MHIE [id number] Memoria 14:15:00 14:15:00 07 l Coin 2020-01-11 2020-01-11 [facility] [id number] 14:15:00 14:15:00 Ab 07 Abran 2020-01-11 2020-01-11 Outpatient BINTA [facility]te[facility]VASCHER [facility] [id number] 14:15:00 14:15:00 Ab 07 Abran 2019-12-06 2019-12-07 Outpatient nullFlavo MNA [id number] Memoria 22:00:00 05:59:59 r Neurology 06 l Elvin Gay 2019-12-06 2019-12-07 Outpatient nullFlavo MNA [id number] Memoria 22:00:00 05:59:59 r Neurology 06 l Elvin Gay 2019-12-06 2019-12-07 Outpatient nullFlavo MNA [id number] Memoria 22:00:00 05:59:59 r Neurology 06 l Elvin Victor Hugo 2019-12-06 2019-12-06 Outpatient BINTA [facility]te[facility]VASCHER [facility] [id number] 16:00:00 23:59:59 Ab 06 Abran 2019-12-06 2019-12-06 Outpatient BINTA [facility]te[facility]VASCHER [facility] [id number] 16:00:00 23:59:59 Ab 06 Abran 2019-12-06 2019-12-06 Outpatient MHIE MHIE [id number] Memoria 16:00:00 16:00:00 06 l Coin 2019-12-06 2019-12-06 Outpatient MHIE MHIE [id number] Memoria 16:00:00 16:00:00 06 l Victor Hugo 2019-12-05 2019-12-05 Ambulatory nullFlavo MNA [id number] Memoria 14:15:00 14:15:00 Pre-Reg r Neurology 05 l [place] Coin 2019-12-05 2019-12-05 Ambulatory nullFlavo MNA [id number] Memoria 14:15:00 14:15:00 Pre-Reg r Neurology 05 baldemar Gay 2019-12-05 2019-12-05 Ambulatory nullFlavo MNA [id number] Memoria 14:15:00 14:15:00 Pre-Reg r Neurology 05 baldemar Gay 2019-12-05 2019-12-05 Outpatient MHIE MHIE [id number] Memoria 08:15:00 08:15:00 05 baldemar Gay 2019-12-05 2019-12-05 Outpatient MHIE MHIE [id number] Memoria 08:15:00 08:15:00 05 baldemar Gay 2019-12-05 2019-12-05 Outpatient Shannon MISCHER MHMISCHER [id number] 08:15:00 08:15:00 Ab Lenin Osullivan 2019-12-05 2019-12-05 Outpatient Shannon MISCHER MHMISCHER [id number] 08:15:00 08:15:00 Ab Lenin Osullivan 2019-11-16 2019-11-16 Ambulatory nullFlavo MNA [id number] Memoria 19:00:00 19:00:00 Pre-Reg r Neurology 03 baldemar Gay 2019-11-16 2019-11-16 Ambulatory nullFlavo MNA [id number] Memoria 19:00:00 19:00:00 Pre-Reg r Neurology 03 baldemar Gya 2019-11-16 2019-11-16 Ambulatory nullFlavo MNA [id number] Memoria 19:00:00 19:00:00 Pre-Reg r Neurology 03 baldemar Gay 2019-11-16 2019-11-16 Outpatient MHIE MHIE [id number] Memoria 13:00:00 13:00:00 03 baldemar Gay 2019-11-16 2019-11-16 Outpatient MHIE MHIE [id number] Memoria 13:00:00 13:00:00 03 baldemar Gay 2019-11-16 2019-11-16 Outpatient KEITH OrtegaSCHER MHMISCHER [id number] 13:00:00 13:00:00 Ab Moses Osullivan 2019-11-16 2019-11-16 Outpatient Shannon MISCHER MHMISCHER [id number] 13:00:00 13:00:00 Ab 03 Abran 2019-11-09 2019-11-10 Outpatient nullFlavo MNA [id number] Memoria 17:30:00 05:59:59 r Neurology 04 baldemar Gay 2019-11-09 2019-11-10 Outpatient nullFlavo MNA [id number] Memoria 17:30:00 05:59:59 r Neurology 04 baldemar Gay 2019-11-09 2019-11-10 Outpatient nullFlavo MNA [id number] Memoria 17:30:00 05:59:59 r Neurology 04 baldemar Gay 2019-11-09 2019-11-09 Outpatient Shannon MHMISCHER MHMISCHER [id number] 11:30:00 23:59:59 Ab 04 Abran 2019-11-09 2019-11-09 Outpatient Shannon MHMISCHER MHMISCHER [id number] 11:30:00 23:59:59 Ab 04 Abran 2019-11-09 2019-11-09 Outpatient MHIE MHIE [id number] Memoria 11:30:00 11:30:00 04 baldemar Gay 2019-11-09 2019-11-09 Outpatient MHIE MHIE [id number] Memoria 11:30:00 11:30:00 04 baldemar Coin 2019-09-19 2019-09-20 Outpatient nullFlavo MNA [id number] Memoria 18:00:00 04:59:59 r Neurology 02 baldemar Oconnor Coin 2019-09-19 2019-09-20 Outpatient nullFlavo MNA [id number] Memoria 18:00:00 04:59:59 r Neurology 02 baldemar Oconnor Coin 2019-09-19 2019-09-20 Outpatient nullFlavo MNA [id number] Memoria 18:00:00 04:59:59 r Neurology 02 baldemar Oconnor Coin 2019-09-19 2019-09-19 Outpatient Shannon MHMISCHER MHMISCHER [id number] 13:00:00 23:59:59 Ab 02 [facility] 2019-09-19 2019-09-19 Outpatient Shannon MHMISCHER MHMISCHER [id number] 13:00:00 23:59:59 Ab 02 [facility] 2019-09-19 2019-09-19 Outpatient MHIE MHIE [id number] Memoria 13:00:00 13:00:00 02 baldemar Coin 2019-09-19 2019-09-19 Outpatient MHIE MHIE [id number] Memoria 13:00:00 13:00:00 02 baldemar Coin 2019-08-23 2019-08-24 Outpatient nullFlavo MNA [id number] Memoria 18:30:00 04:59:59 [facility] 2019-08-24 Outpatient nullFlavo MNA [id number] Memoria 18:30:00 04:59:59 [facility] 2019-08-23 2019-08-24 Outpatient nullFlavo MNA [id number] Memoria 18:30:00 04:59:59 [facility] 2019-08-23 2019-08-23 [facility] [id number] 13:30:00 23:59:59 Ab Abran 2019-08-23 2019-08-23 [facility] [id number] 13:30:00 23:59:59 Ab Abran 2019-08-23 2019-08-23 Outpatient MHIE MHIE [id number] Memoria 13:30:00 13:30:00 01 baldemar Coin 2019-08-23 2019-08-23 Outpatient MHIE MHIE [id number] Memoria 13:30:00 13:30:00 01 baldemar Coin 2019-07-18 2019-07-19 Outpatient nullFlavo MNA [id number] Memoria 14:15:00 04:59:59 r Neurology 00 l [place] Coin 2019-07-18 2019-07-19 Outpatient nullFlavo MNA [id number] Memoria 14:15:00 04:59:59 r Neurology 00 l [place] Coin 2019-07-18 2019-07-19 Outpatient nullFlavo MNA [id number] Memoria 14:15:00 04:59:59 r Neurology 00 l [place] Coin 2019-07-18 2019-07-18 Outpatient KEITH OrtegaSCHER MHMISCHER [id number] 09:15:00 23:59:59 Ab 00 Abran 2019-07-18 2019-07-18 Outpatient Krell, [facility] [id number] 09:15:00 23:59:59 Ab 00 Abran 2019-07-18 2019-07-18 Outpatient KARINA COLLINS [id number] Memoria 09:15:00 09:15:00 00 baldemar Victor Hugo 2019-07-18 2019-07-18 Outpatient KARINA COLLINS [id number] Memoria 09:15:00 09:15:00 00 baldemar Gay Results Test Description Test Time Test Comments Results Result Comments Source INFECTION CONTROL PROFILE 2021-06-13 18:10:00 Test Item Value Reference Range Interpretation Comme nts HEPATITIS C RNA BY Negative Negative Negative: HCV RNA Not PCR-QUAL (test code = Detect edPerformed At: BN HCVRNAPCR) [facility] [place], [place] [id number] ra Danielle SALINAS Ph:[phone] AG HEPATITIS B SURFACE NON REACTIVE INDEX NonReactive (test code = HBSAG) AB HIV 1 2 (test code = NONREACTIVE INDEX NONREACTIVE BOR28QE) HIV 1/2 RAPID SCREEN NONREACTIVE NONREACTIVE Critic al result called to (test code = OJK28AVW) TED BROTHERS RN/Foreign ColonLAB.UN at 165 9 06/09/21Nurse r ead back resut and tech confir med it's correct? Y AG HIV1 P24 (test code NONREACTIVE NONREACTIVE = YSI7K91) BASIC METABOLIC [id number] 07:47:00 Test Item Value Reference Range Interpretation [...] code = 9.0 mg/dL 8.0-10.5 N CA) [id number] 07:47:00 Test Item Value Reference Range Interpretation Comments MAGNESIUM (test code = MAG) 1.91 mg/dL 1.80-2.40 N CBC W/AUTO [id number] 07:13:00 Test Item Value Reference Range Interpretation [...] (test NO code = MDIFF) INFECTION CONTROL [id number] 17:05:00 Test Item Value Reference Range Interpretation Comments HEPATITIS C RNA BY PCR-QUAL (test code = HCVRNAPCR) AG HEPATITIS B NON REACTIVE INDEX NonReactive SURFACE (test code = HBSAG) AB HIV 1 2 (test NONREACTIVE INDEX NONREACTIVE code = TCK19QD) HIV 1/2 RAPID NONREACTIVE NONREACTIVE Critical resu lt SCREEN (test code called to KEHINDE = YPD38XRA) ANGELA BROTHERS/Riya brewer G.LAB.UN at 165 9 06/09/21Nurse read back resut and tech confirmed it's correct? Y AG HIV1 P24 (test NONREACTIVE NONREACTIVE code = BLO1J59) INFECTION CONTROL [id number] 17:01:00 Test Item Value Reference Range Interpretation Comments HEPATITIS C RNA BY PCR-QUAL (test code = HCVRNAPCR) AG HEPATITIS B INDEX NonReactive SURFACE (test code = HBSAG) AB HIV 1 2 (test code INDEX NONREACTIVE = LWM73RL) HIV 1/2 RAPID SCREEN NONREACTIVE NONREACTIVE Critic al result (test code = called to TED Longoria PDT78BQA) ANGELA BROTHERS/Riya brewer G.LAB.UN at 165 9 06/09/21Nurse r ead back resut and tech confirmed it's correct? Y AG HIV1 P24 (test NONREACTIVE NONREACTIVE code = YCG1Z78) COVID 19 Asymptomatic IH [id number] 13:43:00 Test Item Value Reference Range Interpretation Comments COVID 19 Asymptomatic Negative Negative A nega tive result is IH AG (test code = presumpti ve and should COVNONPUIAG) be confirmedwit h an FDA authorized mole cular assay, if neces reggie forpatient toya clifford.A positive result does not [...] waivedcomplexit y tests. - XR CHEST 2 [id number] 13:06:00 [facility] 1965 Sex: F FAX: Dennis Graves MD [phone] [place]: St: PRE FAX: Beverly Cartagena MD [phone] FAX: Katherine Ma Name:GINA MARIE [facility] : 1965 Age/S: 55/F [address] [place] [address] Unit #: [id number] Loc: FLAVIO Rueda [address] Phys: Katherine Ma NP Acct: [id number] Dis Date: Status: PRESDC PHONE #: [phone] Exam Date: 06/08/2021 1143 FAX #: [phone] Reason: PREOP EXAMS: CPT CODE: [id number] XR CHEST 2 V 10187 Clinical Indication: Preoperative evaluation. Comparison: 03/08/2019.Impression: Chest, 2 views. No consolidation, pleural effusion, or pneumothorax. Cardiac silhouette is of normal size. No acute osseous abnormality. Thoracic spinal stimulating device is in place. SL: [id number] at 1306 Reported and signed by: Brian Mendes M.D. CC: Dennis Chaves MD; Beverly Cartagena MD; Katherine Ma NP Technologist: RT Milly(Tasia) Trnscrd Date/Time/By: 06/08/2021 (8280) : By: [email or web address] Orig Print D/T: S: 06/08/2021 (5569) PAGE 1 Signed ReportBASIC METABOLIC [id number] 11:59:00 Test Item Value Reference Range Interpretation [...] 8.9 mg/dL 8.0-10.5 N CA) CBC W/AUTO [id number] 11:55:00 Test Item Value Reference Range Interpretation [...] code NO = MDIFF) AFB CULTURE + [id number] 12:03:00 Test Item Value Reference Range Interpretation Comments CULTURE (BEAKER) (test No acid-fast bacilli code = 1095) isolated in 42 days AFB SMEAR (BEAKER) No acid fast bacilli (test code = 994) seen FUNGUS CULTURE + [id number] 18:46:00 Test Item Value Reference Range Interpretation Comments CULTURE (BEAKER) A 1+ Jo-Ann albicans (test code = 1095) FUNGUS SMEAR No fungi seen (BEAKER) (test code = 1406) MISCELLANEOUS LAB [id number] 07:43:00 Test Item Value Reference Range Interpretation Comments SCAN RESULT (test code = 2208821) CBC W/PLT COUNT & AUTO [id number] 11:31:00 Test Item Value Reference Range Interpretation [...] PERCENT (BEAKER) (test code = 2801) POCT-GLUCOSE [id number] 08:15:00 Test Item Value Reference Range Interpretation Comments POC-GLUCOSE METER 87 mg/dL 70-110 : TESTED A T [facility] 6720 (BEAKER) (test code = [place], 1538) 32336: Education Courses Sales Representative/Techni theo ID = [id number] for GINNY PULIDO [id number] 08:08:00 Test Item Value Reference Range Interpretation Comments MAGNESIUM (BEAKER) 1.6 mg/dL 1.6-2.6 Specimen slightly (test code = 627) hemolyzed COMPREHENSIVE METABOLIC [id number] 08:08:00 Test Item Value Reference Range Interpretation [...] NOT APPLICABLE FOR DIALYSIS PATIEN TS. POCT-GLUCOSE [id number] 23:32:00 Test Item Value Reference Range Interpretation Comments POC-GLUCOSE METER 98 mg/dL 70-110 : TESTED A T [facility] 6720 (BEAKER) (test code = [facility] [facility] [place], 1538) 35327: Education Courses Sales Representative/Techni theo ID = [id number] for REYN OLDS, PATEL POCT-GLUCOSE [id number] 17:52:00 Test Item Value Reference Range Interpretation Comments POC-GLUCOSE METER 88 mg/dL 70-110 : TESTED A T [facility] 6720 (BEAKER) (test code = [employer] [facility], 1538) 94304: Education Courses Sales Representative/Techni theo ID = [id number] for DOBB INS, ZAK POCT-GLUCOSE [id number] 11:53:00 Test Item Value Reference Range Interpretation Comments POC-GLUCOSE METER 161 mg/dL 70-110 H : [facility] (BEAKER) (test code = [place], 1538) 19563: Education Courses Sales Representative/Techni theo ID = [id number] for DO BBINS, ZAK BRONCHIAL CULTURE + GRAM [id number] 10:38:00 Test Item Value Reference Range Interpretation Comments CULTURE (BEAKER) (test See comment code = 1095) GRAM STAIN RESULT 2+ White blood cells (BEAKER) (test code = seen 1123) GRAM STAIN RESULT No organisms seen (BEAKER) (test code = 046641) 1+ YeastRAD, CHEST, 1 VIEW, NON [id number] 08:59:00Reason for exam:- >endotracheal intubationShould this be performed at the bedside?->YesFINAL REPORT Chest, one view History: Respiratory failure Comparison: 10/13/2019 Findings:Moderate bilateral interstitial opacities, similar to previous examination. This could represent atypical infectious process or pulmonary edema. Normal size heart. No pleural effusion or pneum othorax. Postsurgical changes of recent open reduction/internal fixation of the left clavicle. Impression:No significant interval change. Signed: Jerrell Silvaeport Verified Date/Time: 10/14/201908:59:12 Reading Location: [address] Reading Room [id number] 08:38:00 Test Item Value Reference Range Interpretation Comments MAGNESIUM (BEAKER) 2.0 mg/dL 1.6-2.6 Specimen slightly (test code = 627) hemolyzed COMPREHENSIVE METABOLIC [id number] 08:38:00 Test Item Value Reference Range Interpretation [...] PATIEN TS. CBC W/PLT COUNT & AUTO [id number] 08:23:00 Test Item Value Reference Range Interpretation [...] PERCENT (BEAKER) (test code = 2801) POCT-GLUCOSE [id number] 07:07:00 Test Item Value Reference Range Interpretation Comments POC-GLUCOSE METER 84 mg/dL 70-110 : TESTED A T [facility] 6720 (BEAKER) (test code = [place], 1538) 95774: Education Courses Sales Representative/Techni theo ID = [id number] for Will iams, Kamille BLOOD GAS, [id number] 04:38:00 Test Item Value Reference Range Interpretation [...] (test code = 1819) 36.0 % POCT-GLUCOSE [id number] 01:19:00 Test Item Value Reference Range Interpretation Comments POC-GLUCOSE METER 152 mg/dL 70-110 H : TESTED A T [facility] 6720 (BEAKER) (test code = [facility], 1538) 28243: Education Courses Sales Representative/Techni theo ID = [id number] for Weston ramirezvishnuAliyahid BLOOD [id number] 19:01:00 Test Item Value Reference Range Interpretation Comments CULTURE (BEAKER) (test No growth in 5 days code = 1095) POCT-GLUCOSE [id number] 18:11:00 Test Item Value Reference Range Interpretation Comments POC-GLUCOSE METER 82 mg/dL 70-110 : TESTED A T [facility] 6720 (BEAKER) (test code = [facility], 1538) 00068: Education Courses Sales Representative/Techni theo ID = [id number] for DOBB INS, ZAK POCT-GLUCOSE [id number] 12:34:00 Test Item Value Reference Range Interpretation Comments POC-GLUCOSE METER 87 mg/dL 70-110 : TESTED A T [facility] 6720 (BEAKER) (test code = [facility], 1538) 94460: Education Courses Sales Representative/Techni theo ID = [id number] for SAND ERS, GIDEON CBC W/PLT COUNT & AUTO [id number] 09:13:00 Test Item Value Reference Range Interpretation [...] 0-1 PERCENT (BEAKER) (test code = 2801) [id number] 06:55:00 Test Item Value Reference Range Interpretation Comments MAGNESIUM (BEAKER) (test code = 1.8 mg/dL 1.6-2.6 627) COMPREHENSIVE METABOLIC [id number] 06:55:00 Test Item Value Reference Range Interpretation [...] APPLICABLE FOR DIALYSIS PATIEN TS. BLOOD GAS, [id number] 06:41:00 Test Item Value Reference Range Interpretation [...] 28.0 % RAD, CHEST, 1 VIEW, NON [id number] 04:40:00Reason for exam:->endotracheal intubationShould this be performed [...] 70-110 : TESTED A T [facility] 6720 (BEAKER) (test code = [place], 1538) 09900: Education Courses Sales Representative/Techni theo ID = [id number] for Rosa alexander Dianna RAD, MANDIBLE, MIN 4 [id number] 17:22:00Reason for exam:->Liver Transplant EvaluationShould this be [...] Villarrealeport Verified Date/Time: 10/12/2019 17:22:01 Reading Location: [facility] Reading Room POCT-GLUCOSE [id number] 12:42:00 Test Item Value Reference Range Interpretation Comments POC-GLUCOSE METER 119 mg/dL 70-110 H : TESTED A T [facility] 6720 (BEAKER) (test code = [place], 1538) 74081: Education Courses Sales Representative/Techni theo ID = [id number] for Me del toro Tyler RAD, CHEST, 1 VIEW, NON [id number] 09:14:00Reason for exam:->endotracheal intubationShould this be performed [...] MDReport Verified Date/Time: 10/12/2019 09:14:48 Reading Location: [facility] Reading Room [id number] 04:39:00 Test Item Value Reference Range Interpretation Comments MAGNESIUM (BEAKER) (test code = 1.8 mg/dL 1.6-2.6 627) COMPREHENSIVE METABOLIC [id number] 04:39:00 Test Item Value Reference Range Interpretation [...] PATIEN TS. CBC W/PLT COUNT & AUTO [id number] 04:18:00 Test Item Value Reference Range Interpretation [...] (BEAKER) (test code = 2801) BLOOD GAS, [id number] 04:17:00 Test Item Value Reference Range Interpretation [...] (test code = 1819) 30.0 % SPIN/CONCENTRATION [id number] 01:15:00 Test Item Value Reference Range Interpretation Comments CONCENTRATION CHARGED (BEAKER) (test Done code = 2657) BODY FLUID CELL COUNT WITH [id number] 18:00:00 Test Item Value Reference Range Interpretation [...] (test code = 2873) EEG AWAKE AND [id number] 17:00:00Reason for exam:->acute encephalopathyShould this be performed at the bedside?->YesDate(s) of EE10/11/2019 DATE OF REPORT: 10/11/2019ACC: [id number] Number: [id number] Location: Inpatient ICUStart time: 10/11/2019 16:09Stop time: 10/11/2019 16:31ICD-10: R41.82 CPT Code: 85367 HISTORY: 54 y.o. female with hypertension, chronic [...] of this report.Jermaine Walton MD, PhDAttending NeurophysiologistCHI [place] SPUTUM CULTURE + GRAM [id number] 15:43:00 Test Item Value Reference Range Interpretation Comments CULTURE (BEAKER) 4+ Normal respiratory (test code = 1095) candy present GRAM STAIN RESULT 2+ White blood cells (BEAKER) (test code = seen 1123) GRAM STAIN RESULT 0-5 epithelial cells (BEAKER) (test code = 57960) GRAM STAIN RESULT 1+ gram positive rods (BEAKER) (test code = 49032) GRAM STAIN RESULT <1+ yeast (BEAKER) (test code = 511927) MISCELLANEOUS LAB [id number] 08:34:00 Test Item Value Reference Range Interpretation Comments SCAN RESULT (test code = 0880672) RAD, CHEST, 1 VIEW, NON [id number] 07:51:00Reason for exam:->endotracheal intubationShould this be performed [...] hardware.Additional findings: None. Signed: JR Gramajo Robert MDRepmitul Verified Date/Time: 10/11/2019 07:51:10 Reading Location: [facility] Reading Room BLOOD [id number] 07:00:00 Test Item Value Reference Range Interpretation Comments CULTURE (BEAKER) (test No growth in 5 days code = 1095) BLOOD [id number] 07:00:00 Test Item Value Reference Range Interpretation Comments CULTURE (BEAKER) (test No growth in 5 days code = 1095) POCT-GLUCOSE [id number] 05:51:00 Test Item Value Reference Range Interpretation Comments POC-GLUCOSE METER 103 mg/dL 70-110 : TESTED A T [facility] 6720 (BEAKER) (test code = [place], 1538) 28[address]: Education Courses Sales Representative/Techni theo ID = [id number] for SHARI BAJWA BLOOD GAS, [id number] 04:55:00 Test Item Value Reference Range Interpretation [...] (BEAKER) (test code = 1819) 40.0 % [id number] 04:46:00 Test Item Value Reference Range Interpretation Comments MAGNESIUM (BEAKER) (test code = 2.2 mg/dL 1.6-2.6 627) COMPREHENSIVE METABOLIC [id number] 04:46:00 Test Item Value Reference Range Interpretation [...] PATIEN TS. CBC W/PLT COUNT & AUTO [id number] 04:11:00 Test Item Value Reference Range Interpretation [...] PERCENT (BEAKER) (test code = 2801) POCT-GLUCOSE [id number] 23:55:00 Test Item Value Reference Range Interpretation Comments POC-GLUCOSE METER 118 mg/dL 70-110 H : TESTED [place] [facility] 6720 (BEAKER) (test code = [place], 1538) [address]: Education Courses Sales Representative/Techni theo ID = [id number] for TRISHA SKINNERSHARI POCT-GLUCOSE [id number] 17:40:00 Test Item Value Reference Range Interpretation Comments POC-GLUCOSE METER 142 mg/dL 70-110 H : TESTED A T [facility] 6720 (JASON) (test code = [place] [facility], 1538) 91693: Education Courses Sales Representative/Techni theo ID = [id number] for Karely Bautista POCT-GLUCOSE [id number] 12:30:00 Test Item Value Reference Range Interpretation Comments POC-GLUCOSE METER 114 mg/dL 70-110 H : TESTED A T [facility] 6720 (JASON) (test code = [place] [facility], 1538) 76227: Education Courses Sales Representative/Techni theo ID = [id number] for Karely Bautista HIV-1 PCR, [id number] 11:07:00 Test Item Value Reference Range Interpretation Comments HIV-1 RESULT HIV RNA not detected HIV RNA not detected COMPONENT (JASON) (test code = 2703) This test uses a Real-Time Polymerase Chain Reaction (RT-PCR) methodology to detect a highly conserved region of the HIV-1 gag gene and was performed using the CHRISTINA AmpliPrep/CHRISTINA TaqMan HIV-1 test kit version 2.0 ([employer]Reportable range for this assay is 20 - 10,000,000 copies per mL (1.3 - 7.0 Log copies/mL).[id number] 08:14:00 Test Item Value Reference Range Interpretation Comments T3 TOTAL (JASON) (test code = 656) 36 ng/dL 48-159 L RAD, CHEST, 1 VIEW, NON [id number] 07:15:00Reason for exam:->endotracheal intubationShould this be performed [...] MDReport Verified Date/Time: 10/10/2019 07:15:28 Reading Location: [facility] [place] [facility] Reading Room POCT- GLUCOSE [id number] 06:26:00 Test Item Value Reference Range Interpretation Comments POC-GLUCOSE METER 103 mg/dL 70-110 : [facility] [place] [facility] (BEAKER) (test code = [place], 1538) 77[address]: Education Courses Sales Representative/Techni theo ID = [id number] for SUSIE TRUONG [id number] 05:32:00 Test Item Value Reference Range Interpretation [...] within 95-100% range.CBC W/PLT COUNT & AUTO [id number] 05:23:00 Test Item Value Reference Range Interpretation [...] 0-1 PERCENT (BEAKER) (test code = 2801) [id number] 05:10:00 Test Item Value Reference Range Interpretation [...] is 2.5-3.5 for patients wiht mechanical heart valves.[id number] 05:10:00 Test Item Value Reference Range Interpretation Comments PHOSPHORUS (BEAKER) (test code = 3.3 mg/dL 2.3-4.7 604) [id number] 05:10:00 Test Item Value Reference Range Interpretation Comments MAGNESIUM (BEAKER) (test code = 2.3 mg/dL 1.6-2.6 627) COMPREHENSIVE METABOLIC [id number] 05:10:00 Test Item Value Reference Range Interpretation [...] S NOT APPLICABLE FOR DIALYSIS PATIEN TS. [id number] 05:08:00 Test Item Value Reference Range Interpretation Comments FIBRINOGEN LEVEL (BEAKER) (test 275 mg/dl 225-434 code = 658) PROTHROMBIN TIME/[id number] 05:07:00 Test Item Value Reference Range Interpretation [...] 2.5-3.5 for patients wiht mechanical heart valves.CALCIUM, [id number] 04:59:00 Test Item Value Reference Range Interpretation Comments CALCIUM IONIZED (BEAKER) (test 1.20 mmol/L 1.12-1.27 code = 698) PH, BLOOD (BEAKER) (test code = 7.37 1810) BLOOD GAS, [id number] 04:55:00 Test Item Value Reference Range Interpretation [...] (test code = 1819) 40.0 % POCT-GLUCOSE [id number] 00:46:00 Test Item Value Reference Range Interpretation Comments POC-GLUCOSE METER 90 mg/dL 70-110 : TESTED A T [facility] 6720 (BEAKER) (test code = [place], 1538) 16882: Education Courses Sales Representative/Techni theo ID = [id number] for MATH EW, SUSIE MRSA [id number] 19:33:00 Test Item Value Reference Range Interpretation Comments CULTURE (BEAKER) (test code No MRSA isolated = 1095) PROTHROMBIN TIME/[id number] 18:00:00 Test Item Value Reference Range Interpretation [...] is 2.5-3.5 for patients wiht mechanical heart valves.PT/[id number] 18:00:00 Test Item Value Reference Range Interpretation [...] is 2.5-3.5 for patients wiht mechanical heart valves.[id number] 17:55:00 Test Item Value Reference Range Interpretation Comments MAGNESIUM (BEAKER) (test code = 1.9 mg/dL 1.6-2.6 627) BASIC METABOLIC [id number] 17:55:00 Test Item Value Reference Range Interpretation [...] APPLICABLE FOR DIALYSIS PATIEN TS. CYTOMEGALOVIRUS ANTIBODY, [id number] 16:41:00 Test Item Value Reference Range Interpretation Comments CYTOMEGALOVIRUS, IGG (BEAKER) Negative Negative, Equivocal (test code = 3429) CMV IgG Result Interpretation: </= 0.8 Al Negative 0.9-1.0 Al Equivocal >/=1.1 Al PositiveCYTOMEGALOVIRUS ANTIBODY, [id number] 16:41:00 Test Item Value Reference Range Interpretation Comments CYTOMEGALOVIRUS IGM ANTIBODY Negative Negative, Equivocal (BEAKER) (test code = 3437) CMV IgM Result Interpretation: </= 0.8 Al Negative 0.9-1.0 Al Equivocal >/= 1.1 Al PositiveEBV ANTIBODY, [id number] 16:41:00 Test Item Value Reference Range Interpretation Comments JAMA ROUSE VIRAL CAPSID Positive Negative, Equivocal A ANTIGEN IGG (BEAKER) (test code = 3415) Jama Rouse Viral Capsid Antigen IgG Result Interpretation: </= 0.8 Al Negative 0.9-1.0 Al Equivocal >/= 1.1 Al PositiveEBV ANTIBODY, [id number] 16:41:00 Test Item Value Reference Range Interpretation Comments JAMA ROUSE VIRAL CAPSID Positive Negative, Equivocal A ANTIGEN IGM (BEAKER) (test code = 3418) Jama Rouse Viral Capsid Antigen IgM Result Interpretation: </= 0.8 Al Negative 0.9-1.0 Al Equivocal >/= 1.1 Al PositivePOCT-GLUCOSE [id number] 16:15:00 Test Item Value Reference Range Interpretation Comments POC-GLUCOSE METER 107 mg/dL 70-110 : TESTED A T [facility] 6720 (BEAKER) (test code = [place], 1538) 957[address]: Education Courses Sales Representative/Techni theo ID = [id number] for Karely Bautista CT, BRAIN, WITHOUT [id number] 14:07:00Patient with decerebrate posturing, r/o herniationFINAL REPORT [...] recommended for further characterization. Signed: Shari Perry Verified Date/Time: 10/09/2019 14:07:57 SPUTUM CULTURE + GRAM [id number] 12:59:00 Test Item Value Reference Range Interpretation Comments CULTURE (BEAKER) See comment (test code = 1095) GRAM STAIN RESULT 1+ White blood cells (BEAKER) (test code = seen 1123) GRAM STAIN RESULT 0-5 epithelial cells (BEAKER) (test code = 091296) GRAM STAIN RESULT No organisms seen (BEAKER) (test code = 199959) 2+ YeastNo Normal respiratory candy presentPOCT-GLUCOSE [id number] 12:22:00 Test Item Value Reference Range Interpretation Comments POC-GLUCOSE METER 168 mg/dL 70-110 H : TESTED A T [facility] 6720 (BEAKER) (test code = [place], 1538) 65[address]: Education Courses Sales Representative/Techni theo ID = [id number] for Karely Bautista POCT-GLUCOSE [id number] 10:04:00 Test Item Value Reference Range Interpretation Comments POC-GLUCOSE METER 101 mg/dL 70-110 : TESTED A T [facility] 6720 (BEAKER) (test code = [place], 1538) 10878: Education Courses Sales Representative/Techni theo ID = [id number] for Karely Bautista BILIRUBIN, [id number] 09:44:00 Test Item Value Reference Range Interpretation Comments BILIRUBIN DIRECT (BEAKER) (test 1.5 mg/dL 0.1-0.5 H code = 706) [id number] 07:19:00 Test Item Value Reference Range Interpretation [...] within 95-100% range.RAD, CHEST, 1 VIEW, NON [id number] 05:16:00Reason for exam:->endotracheal intubationShould this be performed [...] Cummins MDReport Verified Date/Time: 10/09/2019 05:16:08 CALCIUM, [id number] 05:05:00 Test Item Value Reference Range Interpretation Comments CALCIUM IONIZED (BEAKER) (test 1.14 mmol/L 1.12-1.27 code = 698) PH, BLOOD (BEAKER) (test code = 7.49 1810) BLOOD GAS, [id number] 05:04:00 Test Item Value Reference Range Interpretation [...] 40.0 % CBC W/PLT COUNT & AUTO [id number] 04:51:00 Test Item Value Reference Range Interpretation [...] (BEAKER) (test code = 2801) VANCOMYCIN LEVEL, [id number] 04:26:00 Test Item Value Reference Range Interpretation Comments VANCOMYCIN TROUGH (BEAKER) (test 7.0 ug/mL 10.0-20.0 L code = 522) [id number] 04:21:00 Test Item Value Reference Range Interpretation Comments PHOSPHORUS (BEAKER) (test code = 3.2 mg/dL 2.3-4.7 604) [id number] 04:21:00 Test Item Value Reference Range Interpretation Comments MAGNESIUM (BEAKER) (test code = 1.9 mg/dL 1.6-2.6 627) COMPREHENSIVE METABOLIC [id number] 04:21:00 Test Item Value Reference Range Interpretation [...] S NOT APPLICABLE FOR DIALYSIS PATIEN TS. [id number] 04:19:00 Test Item Value Reference Range Interpretation Comments FIBRINOGEN LEVEL (BEAKER) (test 267 mg/dl 225-434 code = 658) [id number] 04:14:00 Test Item Value Reference Range Interpretation [...] 2.5-3.5 for patients wiht mechanical heart valves.PROTHROMBIN TIME/[id number] 04:13:00 Test Item Value Reference Range Interpretation [...] 2.5-3.5 for patients wiht mechanical heart valves.POCT-GLUCOSE [id number] 01:04:00 Test Item Value Reference Range Interpretation Comments POC-GLUCOSE METER 143 mg/dL 70-110 H : TESTED A T [facility] 6720 (BEAKER) (test code = [facility] [employer] [facility], 1538) 61459: Education Courses Sales Representative/Techni theo ID = [id number] for BONY BRISCOE, SUSIE POCT-GLUCOSE [id number] 20:20:00 Test Item Value Reference Range Interpretation Comments POC-GLUCOSE METER 145 mg/dL 70-110 H : TESTED A T [facility] 6720 (BEAKER) (test code = [facility] [employer] [facility], 1538) 54046: Education Courses Sales Representative/Techni theo ID = [id number] for BONY THEW, SUSIE POCT-GLUCOSE [id number] 16:43:00 Test Item Value Reference Range Interpretation Comments POC-GLUCOSE METER 164 mg/dL 70-110 H : TESTED A T [facility] 6720 (BEAKER) (test code = [place], 1538) 63847: Education Courses Sales Representative/Techni theo ID = [id number] for Karely Bautista CMV PCR, [id number] 15:47:00 Test Item Value Reference Range Interpretation [...] and its performance characteristics determined by the [facility] Pathol ogy Department, Section of Molecular Pathology. It has not been cleared or approved by the U.S. Foodand Drug Administration (FDA), since FDA approval is not required for clinical use of the test. Validation was done as required by The Clinical Laboratory Improvement Amendments of 1988.[id number] 15:29:00 Test Item Value Reference Range Interpretation Comments PHOSPHORUS (BEAKER) (test code = 3.5 mg/dL 2.3-4.7 604) [id number] 15:29:00 Test Item Value Reference Range Interpretation Comments MAGNESIUM (BEAKER) (test code = 2.1 mg/dL 1.6-2.6 627) [id number] 15:01:00 Test Item Value Reference Range Interpretation Comments PHOSPHORUS (BEAKER) (test code = 2.1 mg/dL 2.3-4.7 L 604) [id number] 15:01:00 Test Item Value Reference Range Interpretation Comments MAGNESIUM (BEAKER) (test code = 2.0 mg/dL 1.6-2.6 627) BASIC METABOLIC [id number] 15:01:00 Test Item Value Reference Range Interpretation [...] APPLICABLE FOR DIALYSIS PATIEN TS. Specimen slightly ictericPT/[id number] 14:53:00 Test Item Value Reference Range Interpretation [...] is 2.5-3.5 for patients wiht mechanical heart valves.[id number] 14:38:00 Test Item Value Reference Range Interpretation Comments AMMONIA (BEAKER) (test code = 348) 34 mol/L 18-72 RUBELLA ANTIBODY, [id number] 14:20:00 Test Item Value Reference Range Interpretation Comments RUBELLA IGG QUANTITATION (BEAKER) 1.0 IU/mL <8.0 (test code = 572) Rubella IgG Result Interpretation: </= 7.0 IU/mL Negative - Presumed non- immune 8.0 - 9.9 IU/mL Equivocal >= 10.0 IU/mL Positive - Presumed immune VARICELLA ZOSTER ANTIBODY, [id number] 13:49:00 Test Item Value Reference Range Interpretation Comments VARICELLA ZOSTER IGG (AL) (BEAKER) 4.8 (test code = 3197) VARICELLA ZOSTER RESULT INTERPRETATIONS: <=0.8 Al Nonreactive: Presumed non- immune to VZV 0.9-1.0Al Equivocal >=1.1 Al Reactive: Presumed immune to VZV CRYPTOCOCCAL [id number] 13:33:00 Test Item Value Reference Range Interpretation Comments CRYPTOCOCCAL ANTIGEN, SERUM Negative Negative, Interference (BEAKER) (test code = 1828) FACTOR 5 ACTIVITY (BLEEDING RISK)2019-10-08 13:03:00 Test Item Value Reference Range Interpretation Comments FACTOR V ACTIVITY (BEAKER) (test code = 9.0 % 60.0-150.0 L 665) CBC W/PLT COUNT & AUTO [id number] 12:13:00 Test Item Value Reference Range Interpretation [...] PERCENT (BEAKER) (test code = 2801) POCT-GLUCOSE [id number] 11:22:00 Test Item Value Reference Range Interpretation Comments POC-GLUCOSE METER 184 mg/dL 70-110 H : TESTED A T [facility] 6720 (BEAKER) (test code = [place], 1538) 90731: Education Courses Sales Representative/Techni theo ID = [id number] for Karely Bautista ANTI-NUCLEAR ANTIBODY (JOSE ARMANDO)2019-10-08 10:44:00 Test Item Value Reference Range Interpretation Comments ANTI-NUCLEAR ANTIBODY (JOSE ARMANDO) (BEAKER) Negative Negative (test code = 418) Test performed by IFA method.Test performed by IFA method.[id number] 09:26:00 Test Item Value Reference Range Interpretation Comments PHOSPHORUS (BEAKER) (test code = 2.9 mg/dL 2.3-4.7 604) [id number] 09:26:00 Test Item Value Reference Range Interpretation Comments MAGNESIUM (BEAKER) (test code = 2.0 mg/dL 1.6-2.6 627) BASIC METABOLIC [id number] 09:26:00 Test Item Value Reference Range Interpretation [...] Specimen slightly ictericRAD, CHEST, 1 VIEW, NON [id number] 09:14:00Reason for exam:->endotracheal intubationShould this be performed at the bedside?->YesFINAL REPORT RAD, CHEST, 1 VIEW, NON DEPT INDICATION: endotracheal intubation COMPARISON: Prior day's exam FINDINGS: Portable frontal view of the chest. IMPRESSION: Support Lines: Stable. Lungs and pleura: Improved interstitial congestion. No consolidation or effusion. No pneumothorax.Heart and mediastinum: Stable contours. Additional findings: None. Signed: JR Gramajo Robert MDRepmitul Verified Date/Time: 10/08/2019 09:14:39 Reading Location: [facility] [place] [facility] Reading Room -[id number] 06:25:00 Test Item Value Reference Range Interpretation [...] of thrombosis is within 95-100% range. PROTHROMBIN TIME/[id number] 05:32:00 Test Item Value Reference Range Interpretation [...] is 2.5-3.5 for patients wiht mechanical heart valves.[id number] 05:32:00 Test Item Value Reference Range Interpretation Comments FIBRINOGEN LEVEL (BEAKER) (test 200 mg/dl 225-434 L code = 658) [id number] 05:32:00 Test Item Value Reference Range Interpretation [...] Specimen slightly ictericCBC W/PLT COUNT & AUTO [id number] 05:24:00 Test Item Value Reference Range Interpretation [...] (BEAKER) (test code = 2801) LACTIC ACID, [id number] 05:16:00 Test Item Value Reference Range Interpretation Comments LACTATE BLOOD VENOUS (2) (BEAKER) 1.8 mmol/L 0.5-2.2 (test code = 2872) [id number] 23:51:00 Test Item Value Reference Range Interpretation Comments PHOSPHORUS (BEAKER) (test code = 4.4 mg/dL 2.3-4.7 604) [id number] 23:51:00 Test Item Value Reference Range Interpretation Comments MAGNESIUM (BEAKER) (test code = 2.2 mg/dL 1.6-2.6 627) BASIC METABOLIC [id number] 23:51:00 Test Item Value Reference Range Interpretation [...] DIALYSIS PATIEN TS. Specimen slightly ictericBLOOD GAS, [id number] 23:37:00 Test Item Value Reference Range Interpretation [...] 50.0 % CBC W/PLT COUNT & AUTO [id number] 20:12:00 Test Item Value Reference Range Interpretation [...] PERCENT (BEAKER) (test code = 2801) POCT-GLUCOSE [id number] 20:01:00 Test Item Value Reference Range Interpretation Comments POC-GLUCOSE METER 143 mg/dL 70-110 H : TESTED A T [facility] 6720 (BEAKER) (test code = [facility], 1538) 18171: Education Courses Sales Representative/Techni theo ID = [id number] for Liban Arnett BLOOD GAS, [id number] 19:54:00 Test Item Value Reference Range Interpretation [...] (test code = 1819) 24.0 % POCT-GLUCOSE [id number] 19:01:00 Test Item Value Reference Range Interpretation Comments POC-GLUCOSE METER 155 mg/dL 70-110 H : TESTED A T [facility] 6720 (BEAKER) (test code = [facility] [employer] [facility], 1538) 00160: Education Courses Sales Representative/Techni theo ID = [id number] for GIDEON NUNEZ HEPATOBILIARY [id number] 18:38:00Please do at bedside. Thank you.FINAL REPORT PROCEDURE: HEPATOBILIARY SCAN CPT CODE: 71730 INDICATION: abdominal pain PROTOCOL: 5.3 mCi of [...] Signed: Jeffery Alarcon Verified Date/Time: 10/07/2019 18:38:40 POCT-GLUCOSE [id number] 16:52:00 Test Item Value Reference Range Interpretation Comments POC-GLUCOSE METER 166 mg/dL 70-110 H : TESTED A T [facility] 6720 (BEAKER) (test code = [place], 1538) 15179: Education Courses Sales Representative/Techni theo ID = [id number] for GIDEON NUNEZ PT/[id number] 16:40:00 Test Item Value Reference Range Interpretation [...] is 2.5-3.5 for patients wiht mechanical heart valves.[id number] 16:40:00 Test Item Value Reference Range Interpretation Comments FIBRINOGEN LEVEL (BEAKER) (test 156 mg/dl 225-434 L code = 658) PROTHROMBIN TIME/[id number] 16:39:00 Test Item Value Reference Range Interpretation [...] is 2.5-3.5 for patients wiht mechanical heart valves.[id number] 16:36:00 Test Item Value Reference Range Interpretation Comments PHOSPHORUS (BEAKER) (test code = 1.8 mg/dL 2.3-4.7 L 604) [id number] 16:36:00 Test Item Value Reference Range Interpretation Comments MAGNESIUM (BEAKER) (test code = 2.5 mg/dL 1.6-2.6 627) BASIC METABOLIC [id number] 16:36:00 Test Item Value Reference Range Interpretation [...] APPLICABLE FOR DIALYSIS PATIEN TS. BLOOD GAS, [id number] 16:22:00 Test Item Value Reference Range Interpretation [...] 25.0 % CBC W/PLT COUNT & AUTO [id number] 12:44:00 Test Item Value Reference Range Interpretation [...] PERCENT (BEAKER) (test code = 2801) POCT-GLUCOSE [id number] 12:23:00 Test Item Value Reference Range Interpretation Comments POC-GLUCOSE METER 145 mg/dL 70-110 H : TESTED A T [facility] 6720 (BEAKER) (test code = [place], 1538) 49579: Education Courses Sales Representative/Techni theo ID = [id number] for GIDEON NUNEZ [id number] 12:06:00 Test Item Value Reference Range Interpretation Comments T4 TOTAL (BEAKER) (test code = 895) 4.6 ug/dL 4.9-11.7 L [id number] 10:00:00 Test Item Value Reference Range Interpretation Comments PHOSPHORUS (BEAKER) (test code = 2.8 mg/dL 2.3-4.7 604) [id number] 10:00:00 Test Item Value Reference Range Interpretation Comments MAGNESIUM (BEAKER) (test code = 2.0 mg/dL 1.6-2.6 627) BASIC METABOLIC [id number] 10:00:00 Test Item Value Reference Range Interpretation [...] NOT APPLICABLE FOR DIALYSIS PATIEN TS. POCT-GLUCOSE [id number] 08:15:00 Test Item Value Reference Range Interpretation Comments POC-GLUCOSE METER 174 mg/dL 70-110 H : TESTED A T [facility] 6720 (BEAKER) (test code = [place], 1538) 23821: Education Courses Sales Representative/Techni theo ID = [id number] for SA NDERS, GIDEON RAD, CHEST, 1 VIEW, NON [id number] 05:39:00Reason for exam:- >intubatedShould this be performed [...] Verified Date/Time: 10/07/2019 05:39:22 05:39 AMBLOOD GAS, [id number] 05:29:00 Test Item Value Reference Range Interpretation [...] (BEAKER) (test code = 1819) 40.0 % [id number] 05:07:00 Test Item Value Reference Range Interpretation [...] thrombosis is within 95-100% range. COMPREHENSIVE METABOLIC [id number] 04:59:00 Test Item Value Reference Range Interpretation [...] PATIEN TS. CBC W/PLT COUNT & AUTO [id number] 04:32:00 Test Item Value Reference Range Interpretation [...] H PERCENT (BEAKER) (test code = 2801) [id number] 04:30:00 Test Item Value Reference Range Interpretation Comments PHOSPHORUS (BEAKER) (test code = 3.1 mg/dL 2.3-4.7 604) [id number] 04:30:00 Test Item Value Reference Range Interpretation Comments MAGNESIUM (BEAKER) (test code = 1.8 mg/dL 1.6-2.6 627) POCT-GLUCOSE [id number] 04:25:00 Test Item Value Reference Range Interpretation Comments POC-GLUCOSE METER 126 mg/dL 70-110 H : TESTED A T [facility] 6720 (BEAKER) (test code = [place], 1538) 49114: Education Courses Sales Representative/Techni theo ID = [id number] for Liban Arnett [id number] 04:18:00 Test Item Value Reference Range Interpretation Comments FIBRINOGEN LEVEL (BEAKER) (test 173 mg/dl 225-434 L code = 658) [id number] 04:14:00 Test Item Value Reference Range Interpretation [...] for patients wiht mechanical heart valves.LACTIC ACID, [id number] 04:13:00 Test Item Value Reference Range Interpretation Comments LACTATE BLOOD VENOUS (2) (BEAKER) 1.2 mmol/L 0.5-2.2 (test code = 2872) POCT-GLUCOSE [id number] 01:33:00 Test Item Value Reference Range Interpretation Comments POC-GLUCOSE METER 103 mg/dL 70-110 : TESTED A T [facility] 6720 (BEAKER) (test code = [facility] [employer] [facility], 1538) 97878: Education Courses Sales Representative/Techni theo ID = [id number] for GISELE CUETO HEMOGLOBIN AND [id number] 00:27:00 Test Item Value Reference Range Interpretation Comments HEMOGLOBIN (BEAKER) (test code = 8.6 GM/DL 11.2-15.7 L 410) HEMATOCRIT (BEAKER) (test code = 26.2 % 34.1-44.9 L 411) POCT-GLUCOSE [id number] 22:58:00 Test Item Value Reference Range Interpretation Comments POC-GLUCOSE METER 146 mg/dL 70-110 H : TESTED A T [facility] 6720 (BEAKER) (test code = [employer] [facility], 1538) 15006: Education Courses Sales Representative/Techni theo ID = [id number] for GISELE CUETO RAD, CHEST, 1 VIEW, NON [id number] 21:37:00Reason for exam:->line placement, right IJShould this [...] surgical changes the left clavicle. Signed: Carolynn Rodríguezeport Verified Date/Time: 10/06/2019 21:37:58 BASI METABOLIC [id number] 20:04:00 Test Item Value Reference Range Interpretation [...] APPLICABLE FOR DIALYSIS PATIEN TS. PROTEIN, RANDOM [id number] 19:50:00 Test Item Value Reference Range Interpretation Comments PROTEIN, URINE (BEAKER) (test code = 83 mg/dL 0-14 H 1569) CREATININE, RANDOM [id number] 19:28:00 Test Item Value Reference Range Interpretation Comments CREATININE URINE (BEAKER) (test 37.6 mg/dL code = 375) Reference Range: No [id number] 19:00:00 Test Item Value Reference Range Interpretation Comments MAGNESIUM (BEAKER) 2.0 mg/dL 1.6-2.6 Specimen slightly (test code = 627) hemolyzed [id number] 19:00:00 Test Item Value Reference Range Interpretation [...] 0-0 (test code = 413) LACTIC ACID, [id number] 18:55:00 Test Item Value Reference Range Interpretation Comments LACTATE BLOOD VENOUS 1.9 mmol/L 0.5-2.2 Specime n slightly (2) (BEAKER) (test hemolyzed code = 2872) VITAMIN B12 AND [id number] 18:36:00 Test Item Value Reference Range Interpretation Comments VITAMIN B12 (BEAKER) (test code = > pg/mL 213-816 H 774) FOLATE (BEAKER) (test code = 362) 17.3 ng/mL >=7.0 BLOOD GAS, [id number] 18:29:00 Test Item Value Reference Range Interpretation [...] code = 1819) 40.0 % BASIC METABOLIC [id number] 17:47:00 Test Item Value Reference Range Interpretation [...] NOT APPLICABLE FOR DIALYSIS PATIEN TS. POCT-GLUCOSE [id number] 17:39:00 Test Item Value Reference Range Interpretation Comments POC-GLUCOSE METER 188 mg/dL 70-110 H : TESTED A T [facility] 6720 (BEAKER) (test code = [place], 1538) [address]: Education Courses Sales Representative/Techni theo ID = [id number] for SA LULURS, GIDEON LIPID [id number] 17:28:00 Test Item Value Reference Range Interpretation [...] = 7.3 mg/dL 2.6-7.2 H 773) HEMOGLOBIN [id number] 16:13:00 Test Item Value Reference Range Interpretation Comments HEMOGLOBIN A1C (BEAKER) (test code = 6.0 % 4.3-6.1 368) HEPATITIS A ANTIBODY, [id number] 16:13:00 Test Item Value Reference Range Interpretation Comments HEPATITIS A IGG ANTIBODY (BEAKER) Reactive Nonreactive A (test code = 2797) CARCINOEMBRYONIC ANTIGEN (CEA)2019-10-06 16:08:00 Test Item Value Reference Range Interpretation Comments CARCINOEMBRYONIC ANTIGEN (BEAKER) 23.1 ng/mL 0.0-5.0 H (test code = 685) VITAMIN D, [id number] 16:08:00 Test Item Value Reference Range Interpretation Comments VITAMIN D 25-OH (BEAKER) (test 10.1 ng/mL 6.6-49.9 code = 2764) Effective 09/07/2017: Reference Range ChangeNew: 6.6-49.9 ng/mL Previous: 13.0- 47.8 ng/mLRecommendedVitamin D Target Range: 30.0-40.0 ng/mLTRANSFERRIN 2019-10-06 15:52:00 Test Item Value Reference Range Interpretation Comments TRANSFERRIN (BEAKER) (test code = 218 mg/dL 174-382 541) [id number] 15:09:00 Test Item Value Reference Range Interpretation Comments PHOSPHORUS (JASON) (test code = 1.7 mg/dL 2.3-4.7 L 604) U/S, ABDOMINAL, WITH [id number] 15:01:00Reason for exam:->acute liver injury, ? cholecystitis, [...] MDReport Verified Date/Time: 10/06/2019 15:01:21 Reading Location: [facility] B1 C013X Ortho Consult Reading Room PREGNANCY SCREEN, [id number] 14:58:00 Test Item Value Reference Range Interpretation Comments TEST URINE (BEAKER) (test Negative code = 583) POCT-GLUCOSE [id number] 12:44:00 Test Item Value Reference Range Interpretation Comments POC-GLUCOSE METER 156 mg/dL 70-110 H : TESTED A T [facility] 6720 (BEAKER) (test code = [place], 1538) [address]: Education Courses Sales Representative/Techni theo ID = [id number] for SA JOHN, GIDEON [id number] 12:39:00 Test Item Value Reference Range Interpretation Comments RPR SCREEN (BEAKER) (test code = Nonreactive Nonreactive 420) B-TYPE NATRIURETIC FACTOR (BNP)2019-10-06 11:57:00 Test Item Value Reference Range Interpretation Comments B-TYPE NATRIURETIC PEPTIDE 3996 pg/mL 0-100 H (BEAKER) (test code = 700) [id number] 11:51:00 Test Item Value Reference Range Interpretation Comments MAGNESIUM (BEAKER) (test code = 2.2 mg/dL 1.6-2.6 627) BLOOD GAS, [id number] 11:50:00 Test Item Value Reference Range Interpretation [...] code = 1819) 50.0 % RESPIRATORY PANEL [id number] 11:35:00 Test Item Value Reference Range Interpretation [...] sample was tested at the [facility] Molecular Diagnostics Laboratory using the [employer] FilmArray Respiratory Panel. It is FDA cleared and has been verified and approved by the [facility] Molecular Diagnostics Laboratory for clinical use on nasopharyngeal swab specimens.The performance of the FilmArrayRP has not been established in individuals who received influenza vaccine. Recent administration of a nasal influenza vaccine may cause false positive results for Influenza A and/orInfluenza B.RETICULOCYTE [id number] 11:32:00 Test Item Value Reference Range Interpretation Comments RETICULOCYTE COUNT PCT (JASON) (test 2.1 % 0.5-1.7 H code = 575) KETONE, [id number] 11:30:00 Test Item Value Reference Range Interpretation Comments KETONES, BLOOD (SHANNONAKER) (test code 0.3 mmol/L <0.4 = 1103) LEGIONELLA ANTIGEN, [id number] 09:37:00 Test Item Value Reference Range Interpretation Comments L. PNEUMOPHILA Negative - see Negative fo r L. SEROGP 1 UR AG comment pneumophila ([employer]ON[employer]) (test code serogrou p 1 antigen, = 1156) suggesting no r ecent or current infe ction with this serog roup. Legionellosis c annot be ruled out si nce other serogroup s and species may cau se disease. STREP PNEUMONIAE [id number] 09:37:00 Test Item Value Reference Range Interpretation Comments STREP PNEUMONIAE Presumptive negative Presumptive negative ANTIGEN ([employer]) for pneumococcal for pneumococcal (test code = 1615) pneumonia - see pneumonia - see comment commen Presumptive negative for pneumococcal pneumonia, suggesting no current or recent pneumococcal infection. Infection due to S. pneumoniae cannot be ruled out since the antigen present in the sample may be below the detection limit of the test. POCT-GLUCOSE [id number] 08:45:00 Test Item Value Reference Range Interpretation Comments POC-GLUCOSE METER 119 mg/dL 70-110 H : TESTED A T [facility] 6720 ([facility]) (test code = [place], 1538) [address]: Education Courses Sales Representative/Techni theo ID = [id number] for SA NDERS, GIDEON RAD, CHEST, 1 VIEW, NON [id number] 08:37:00Post-intubationReason for exam:- >intubationShould this be performed [...] MDReport Verified Date/Time: 10/06/2019 08:37:13 Reading Location: [facility] C013X [facility] Consult Reading Room Electronically signed by: AMANDA VAN M.D.on 10/06/2019 08:37 [id number] 07:44:00 Test Item Value Reference Range Interpretation Comments PROCALCITONIN (BEAKER) (test code 0.97 ng/mL <0.05 H = 3036) SEPSIS RISK (ng/mL)Low: 0.05-0.50Intermediate: 0.51-2.00High: >=2.01 URINALYSIS W/ REFLEX URINE [id number] 07:15:00 Test Item Value Reference Range Interpretation [...] code = 2795) ALPHA FETOPROTEIN (AFP), TUMOR [id number] 06:49:00 Test Item Value Reference Range Interpretation Comments ALPHA-FETOPROTEIN (BEAKER) (test code < ng/mL <10.0 = 1094) For 1 occurencesHEPATITIS B SURFACE [id number] 06:49:00 Test Item Value Reference Range Interpretation Comments HEPATITIS B SURFACE ANTIBODY < mIU/mL <8.0 (BEAKER) (test code = 647) For 1 occurencesRAPID DRUG SCREEN, [id number] 06:33:00 Test Item Value Reference Range Interpretation [...] situations. Chain of custody not maintained. Some rkgx-fbm-cimbily medications, as well as adulterants, may cause inaccurate results. Clinical correlation should be applied. A more comprehensive drug screen or confirmation of a detected drug may be performed upon request.CREATININE, RANDOM [id number] 06:30:00 Test Item Value Reference Range Interpretation Comments CREATININE URINE (BEAKER) (test 38.0 mg/dL code = 375) Reference Range: No NormalsSODIUM, RANDOM [id number] 06:30:00 Test Item Value Reference Range Interpretation Comments SODIUM URINE (BEAKER) (test code = 51 meq/L 243) Reference Range: No NormalsHEPATITIS B CORE ANTIBODY, [id number] 06:27:00 Test Item Value Reference Range Interpretation Comments HEPATITIS B CORE TOTAL ANTIBODY Nonreactive Nonreactive (BEAKER) (test code = 497) For 1 [id number] 05:50:00 Test Item Value Reference Range Interpretation Comments FERRITIN (BEAKER) (test code = 1588 ng/mL 5-275 H 361) For 1 occurencesACETAMINOPHEN [id number] 05:30:00 Test Item Value Reference Range Interpretation Comments ACETAMINOPHEN LEVEL (BEAKER) (test < ug/mL 10.0-30.0 L code = 344) Therapeutic Range: 10.0-30.0 g/mLToxic Levels: >200.0 g/mLFor 1 occurences [id number] 05:20:00 Test Item Value Reference Range Interpretation Comments ALPHA-1 ANTITRYPSIN (BEAKER) 266.90 mg/dL 90.00-200.00 H (test code = 502) [id number] 05:17:00 Test Item Value Reference Range Interpretation Comments THYROID STIMULATING HORMONE 0.75 uIU/mL 0.35-4.94 (BEAKER) (test code = 772) HEPATITIS PANEL, [id number] 05:17:00 Test Item Value Reference Range Interpretation Comments HEPATITIS A IGM ANTIBODY (BEAKER) Nonreactive Nonreactive (test code = 498) HEPATITIS B CORE IGM ANTIBODY Nonreactive Nonreactive (BEAKER) (test code = 645) HEPATITIS C ANTIBODY (BEAKER) Nonreactive Nonreactive (test code = 367) HEPATITIS B SURFACE ANTIGEN (2) Nonreactive Nonreactive (BEAKER) (test code = 2585) HIV-1 ANTIGEN WITH HIV-1/2 [id number] 05:17:00 Test Item Value Reference Range Interpretation Comments HIV-1 ANTIGEN WITH HIV 1\T\2 Nonreactive Nonreactive ANTIBODY (2) (BEAKER) (test code = 2586) BASIC METABOLIC [id number] 05:09:00 Test Item Value Reference Range Interpretation [...] APPLICABLE FOR DIALYSIS PATIEN TS. HEPATIC FUNCTION [id number] 05:09:00 Test Item Value Reference Range Interpretation [...] code = > U/L 6-55 H 347) [id number] 05:07:00 Test Item Value Reference Range Interpretation Comments PHOSPHORUS (BEAKER) (test code = 3.6 mg/dL 2.3-4.7 604) [id number] 05:07:00 Test Item Value Reference Range Interpretation [...] H (test code = 364) LACTIC ACID, [id number] 04:58:00 Test Item Value Reference Range Interpretation Comments LACTATE BLOOD ARTERIAL (2) 1.5 mmol/L 0.5-2.2 (BEAKER) (test code = 2874) [id number] 04:56:00 Test Item Value Reference Range Interpretation Comments ETHANOL (BEAKER) (test code = 400) < mg/dL <=10 [id number] 04:54:00 Test Item Value Reference Range Interpretation [...] L (test code = 2590) BLOOD GAS, [id number] 04:53:00 Test Item Value Reference Range Interpretation [...] 30.0 % CBC W/PLT COUNT & AUTO [id number] 04:53:00 Test Item Value Reference Range Interpretation [...] PERCENT (BEAKER) (test code = 2801) CALCIUM, [id number] 04:51:00 Test Item Value Reference Range Interpretation Comments CALCIUM IONIZED (BEAKER) (test 1.12 mmol/L 1.12-1.27 code = 698) PH, BLOOD (BEAKER) (test code = 7.35 1810) PROTHROMBIN [id number] 04:43:00 Test Item Value Reference Range Interpretation [...] is 2.5-3.5 for patients wiht mechanical heart valves.[id number] 04:43:00 Test Item Value Reference Range Interpretation Comments FIBRINOGEN LEVEL (BEAKER) (test 265 mg/dl 225-434 code = 658) [id number] 04:43:00 Test Item Value Reference Range Interpretation [...] for patients wiht mechanical heart valves.ACUTE HEPATITIS [id number] 06:15:00 Test Item Value Reference Range Interpretation Comments AB HEPATITIS A IGM Negative Negative (test code = HAVMAB) AG HEPATITIS B Negative Negative SURFACE (test code = HBSAG) AB HEPATITIS B CORE Negative Negative IGM (test code = HBCMAB) AB HEPATITIS C (test <0.1 0.0-0.9 INFCE R esult Units: s/co code = HCVAB) ratio Negative : < 0.8 Indeterminate: 0.8 - 0.9 Positive: > 0.9 The CDC recommends that a positive HCV an tibody result be follo wed up with a HCV Nucl eic Acid Amplification t est (913356).Perfor med At: HD [facility] [id number] [place], [place] [id number] kris Gould MD [phone] HIV 1 2 ANTIBODY [id number] 06:15:00 Test Item Value Reference Range Interpretation Comments AB HIV 1 2 (test code = NON REACTIVE SCREEN NONREACTIVE [id number]) AG HIV1 P24 (test code = NON REACTIVE P24 NONREACTIVE FGE2U85) - CT ABD PELVIS [id number] 12:57:00 Name: GINA MARIE [facility] : 1965 Age/S: 53 / F [address] [address] Unit #: [id number] Loc: [place] [address] Phys: Bryan Orta MD Acct: [id number] Dis Date: Status: ADM IN PHONE #: [phone] Exam Date: 03/09/2019 1200 FAX #: Reason: abd pain EXAMS: CPT: [id number] CT ABDPELVIS W/CONT 80337 LOCATION: T18 EXAM: CT ABDOMEN AND PELVIS [...] Bones peripheral soft tissues are unremarkable. IMPRESSION: Prominentsmall bowel loops may represent enteritis. No bowel obstruction. Moderate stool burden concerning for constipation. Moderate atherosclerotic disease of the abdominal aorta. at 1257 Reported and signed by: Donavon Blanco M.D. CC: Lou Sharp MD; Bryan Orta MD Technologist:Luis Moore, RT(R)(CT); .. CTDI: DLP: Trnscb Date/Time: 02/26 (1257) t.SDR.JP19 Orig Print D/T: S: 03/09/2019 (1300) CTDI: DLP: PAGE 1 Signed ReportBASI METABOLIC [id number] 07:37:00 Test Item Value Reference Range Interpretation [...] = CA) 8.7 MG/DL 8.5-10.1 N T4 [id number] 07:37:00 Test Item Value Reference Range Interpretation Comments T4 FREE (test code = T4F) 0.70 NG/DL 0.89-1.76 L THYROID STIMULATING [id number] 07:37:00 Test Item Value Reference Range Interpretation Comments THYROID STIMULATING HORMONE 1.540 mcIU/ML 0.340-4.820 N (test code = TSH) ACUTE HEPATITIS [id number] 07:33:00 Test Item Value Reference Range Interpretation Comments AB HEPATITIS A IGM (test code = HAVMAB) AG HEPATITIS B SURFACE (test code = SCREEN NEGATIVE HBSAG) AB HEPATITIS B CORE IGM (test code = HBCMAB) AB HEPATITIS C (test code = HCVAB) RATIO <0.8 HIV 1 2 ANTIBODY [id number] 07:33:00 Test Item Value Reference Range Interpretation Comments AB HIV 1 2 (test code = NON REACTIVE SCREEN NONREACTIVE WJT30EL) AG HIV1 P24 (test code = NON REACTIVE P24 NONREACTIVE OEP8K60) GLYCOSYLATED HEMOGLOBIN [id number] 07:26:00 Test Item Value Reference Range Interpretation Comments GLYCOSYLATED HEMOGLOBIN (HA1C) 5.8 % A1C 4.2-6.3 N (test code = GLYHGB) ESTIMATED AVERAGE GLUCOSE (test 120 MG/DLest code = EAG) CBC W/AUTO [id number] 07:21:00 Test Item Value Reference Range Interpretation [...] DIFF/SCN CRITERIA MDIFF) - CT HEAD/BRAIN W/O [id number] 19:39:00 Name: GINA MARIE [place] : 1965 Age/S: 53 / F [address] [address] Unit #: [id number] Loc: [place] [address] Phys: Maria Morel MD Acct: [id number] Dis Date: Status: ADMIN PHONE #: [phone] Exam Date: 03/08/2019 8595 FAX #: Reason: near syncope EXAMS: CPT: [id number] CT HEAD/BRAIN W/O CONT 56398 CT head History: near syncope Comparison: None at this time Location:R16 Technique: Noncontrast CT scan of the head was performed. One or more of the following radiationdose reduction techniques was used: automated exposure control, adjustment of mA and/or KV accordingto patient size, and/or utilization of iterative reconstruction [...] RT(R)(CT) CTDI: DLP: Trnscb Date/Time: 03/08/2019 (1938) [email or web address].PMT Orig Print D/T:S: 03/08/2019 (1941) CTDI: DLP: PAGE 1 Signed ReportDRUGS OF ABUSE SCREEN [id number] 19:12:00 Test Item Value Reference Range Interpretation [...] NEGATIVE SCcutoff <300 NG/ML [place]) COMPREHENSIVE METABOLIC [id number] 17:26:00 Test Item Value Reference Range Interpretation [...] 45-117 N TOTAL (test code = ALKP) [id number] 17:26:00 Test Item Value Reference Range Interpretation Comments MAGNESIUM (test code = MAG) 1.9 MG/DL 1.8-2.4 N [id number] 17:26:00 Test Item Value Reference Range Interpretation Comments ALCOHOL (test code = ALC) < 3 MG/DL 0-10 N COMPREHENSIVE METABOLIC [id number] 17:21:00 Test Item Value Reference Range Interpretation [...] TOTAL (test Unit/L 45-117 code = ALKP) [id number] 17:21:00 Test Item Value Reference Range Interpretation Comments MAGNESIUM (test code = MAG) MG/DL 1.8-2.4 [id number] 17:21:00 Test Item Value Reference Range Interpretation Comments ALCOHOL (test code = ALC) MG/DL 0-10 CBC W/AUTO [id number] 17:08:00 Test Item Value Reference Range Interpretation [...] DIFF/SCN CRITERIA MDIFF) - XR CHEST 1 [id number] 16:33:00 [facility] 1965 Age/S: 53 / F [address] [address] Unit #: [id number] Loc: [place] [address] Phys: Maria Morel MD Acct: [id number] Dis Date: Status: PRE ER PHONE #: [phone] Exam Date: 03/08/2019 1626 FAX #: Reason: near syncope EXAMS: CPT: [id number] CHEST 1 V 40429 Fluoro Time: DAP (Gy m2): Air Kerma [...] PAGE 1 Signed Report Name: [facility] : 1965 Age/S: 53 / F [address] [address] Unit #: [id number] Loc: [place] [address] Phys: Maria Morel MD Acct: [id number] Dis Date: Status: PRE ER PHONE #: [phone] Exam Date: 03/08/2019 1626 FAX #: Reason: near syncope EXAMS: CPT: [id number] XR CHEST 1 V 14904 Fluoro Time: DAP (Gy m2): Air Kerma (mGy): (Continued)Technologist: Nanette Gordon, RT(R)(CT) Trnscb Date/Time: 03/08/2019 (6001) [email or web address].JP19 Orig Print D/T: S: 03/08/2019 (2669) PAGE 2 Signed Report
[2022-10-04] MEDS ORDERED: NA CHLORIDE 0.9% 1,000 ML ONE (20:36)
[2022-10-04 21:12] LABS: Absolute Lymphocytes (CBC) 1.8 K/uL (0.7-4.9); Hematocrit 34.4 % (36.0-45.0); Lymphocytes % 10.1 % (15.3-44.8); MPV 8.6 fL (7.6-11.3); RBC Red Blood Cell Count 4.64 M/uL (3.86-4.86)
[2022-10-04 21:15] LABS: Protime INR 1.05
[2022-10-04] MEDS ORDERED: METHYLPREDNISOLONE 40 MG INJ ONE (21:20)
[2022-10-04] MEDS ORDERED: DIPHENHYDRAMINE 50 MG/ML VIAL ONE (21:20)
[2022-10-04] MEDS ORDERED: FAMOTIDINE 20 MG/2 ML VIAL IV ONE (21:20)
[2022-10-04 21:38] LABS: BUN Blood Urea Nitrogen 17 mg/dL (7-18); Bicarbonate 23 mmol/L (21-32); Glomerular Filtration Rate 40 ml/min (=/>90); Glucose Level 132 mg/dL (74-106); Magnesium 2.1 mg/dL (1.8-2.4); Potassium 3.4 mmol/L (3.5-5.1); Sodium Level 129 mmol/L (136-145); Troponin High Sensitivity 22.2 pg/mL (<58.9)
--- NOTE | 2022-10-04 22:06 | RAD REPORT ---
EXAM DESCRIPTION: RAD - Pelvis - 10/04/2022 9:10 pm CLINICAL HISTORY: fall COMPARISON: No comparisons TECHNIQUE: AP imaging of the pelvis was obtained. FINDINGS: Bony pelvis appears intact. No fracture or dislocation of either proximal femur. Arterial tree calcifications are present. Vascular calcifications content limit evaluation of the sacral ala. No history detailed of sacral ala or SI joint region pain. IMPRESSION: No fracture of the pelvis or proximal femora confirmed. Sacral ala are partially obscure d.
--- NOTE | 2022-10-04 22:07 | RAD REPORT ---
EXAM DESCRIPTION: RAD - Chest Single View - 10/04/2022 9:10 pm CLINICAL HISTORY: fall, pain COMPARISON: September 06 TECHNIQUE: AP portable chest image was obtained 10/04/2022 9:10 pm . FINDINGS: Extensive chronic interstitial lung disease present. Current pattern is not significantly different from comparison. Heart and vasculature are normal. No measurable pleural effusion and no pn eumothorax. No acute bony abnormality seen. No acute aortic findings suspected. IMPRESSION: Extensive chronic interstitial lung pattern similar to prior imaging. Edema or infiltrate could be masked by severity of chronic disease.
--- NOTE | 2022-10-04 22:08 | RAD REPORT ---
EXAM DESCRIPTION: RAD - Hip Right 2 View - 10/04/2022 9:10 pm CLINICAL HISTORY: PAIN COMPARISON: Hip Right 2 View dated 09/09/2022 FINDINGS: AP and frog-leg views of the right hip were obtained. There is no fracture or dislocation. No AVN or focal head abnormality. No acute or destructive bony p rocess seen. Arterial tree calcifications are present. IMPRESSION: Negative right hip examination for acute or significant findings.
[2022-10-04 22:41] LABS: Urine Blood Negative (Negative); Urine Glucose Negative (Negative); Urine Protein Negative (Negative); Urine Specific Gravity <=1.005 (1.005-1.030); Urine pH 6.5 (5.0-7.0)
[2022-10-04 22:53] LABS: Anisocytosis 1+; Blood Morphology Comment NOTED (NOT SEEN); Platelet Estimate ADEQ; White Blood Cell Scan OK (OK)
[2022-10-04 23:17] LABS: Barbiturates NEGATIVE (NEGATIVE); Benzodiazepines NEGATIVE (NEGATIVE); Cocaine NEGATIVE (NEGATIVE); METHAMPHETAM NEGATIVE (NEGATIVE); Methadone NEGATIVE (NEGATIVE); Opiates NEGATIVE (NEGATIVE); Phencyclidine NEGATIVE (NEGATIVE); THC Cannibis POSITIVE (NEGATIVE)
[2022-10-05 00:37] LABS: ALT/SGPT 216 U/L (12-78); AST/SGOT 101 U/L (15-37); Albumin 3.1 g/dL (3.4-5.0); Alkaline Phosphatase 157 U/L (45-117); Bilirubin Direct 0.3 mg/dL (0-0.2); Bilirubin Total 0.7 mg/dL (0.2-1.0); Protein, Total 6.7 g/dL (6.4-8.2)
[2022-10-05] MEDS ORDERED: LIDOCAINE 1% 20 ML MDV ONE (00:39)
--- NOTE | 2022-10-05 01:42 | ER ---
Nurse's Notes [facility] Name: Pratibha Jennings Age: 57 yrs Sex: Female : 1965 Arrival Date: 10/04/2022 Time: 20:01 Bed 28 Private MD: Diagnosis: Fall on same level from slipping, tripping and stumbling with subsequent striking against object;Laceration without foreign body of other part of head-right lower jaw;Abnormal results of liver function studies Presentation: 10/04 20:14 Chief complaint: Patient states: Found on floor at home by . Pt reports falling ld1 onto kitchen floor at 1800 this evening. Laceration to chin \\T\\ left forearm. reports "I think she has been drinking but she won't admit it.". Coronavirus screen: At this time, the client does not indicate any symptoms associated with coronavirus-19. Ebola Screen: No symptoms or risks identified at this time. Initial Sepsis Screen: Does the patient meet any 2 criteria? No. Patient's initial sepsis screen is negative. Does the patient have a suspected source of infection? No. Patient's initial sepsis screen is negative. Risk Assessment: Do you want to hurt yourself or someone else? Patient reports no desire to harm self or others. Onset of symptoms was October 04, 2022. 20:14 Method Of Arrival: Wheelchair ld1 20:14 Acuity: NUSRAT 3 ld1 Triage Assessment: 20:16 General: Appears in no apparent distress. uncomfortable, Behavior is cooperative, flat. ld1 Pain: Complains of pain in dorsal aspect of left forearm and submental area Pain does not radiate. Pain currently is 8 out of 10 on a pain scale. EENT: No signs and/or symptoms were reported regarding the EENT system. Neuro: Level of Consciousness is awake, alert, obeys commands, Oriented to person, place, time, situation, Appropriate for age. Cardiovascular: Capillary refill < 3 seconds Patient's skin is warm and dry. Respiratory: Airway is patent Respiratory effort is even, unlabored. GI: Abdomen is flat, non-distended. : No signs and/or symptoms were reported regarding the genitourinary system. Derm: No signs and/or symptoms reported regarding the dermatologic system. Musculoskeletal: No signs and/or symptoms reported regarding the musculoskeletal system. Historical: - Allergies: 20:16 Iodine; topical; ld1 20:16 Latex, Natural Rubber; ld1 - PMHx: 20:16 Back pain; Chronic pain; Degenerative disc disease; Hyperlipidemia; ADD/ADHD; ld1 Hypertension; Hepatic encephalopathy; - PSHx: 20:16 Disc removal; Left clavicle; Left knee replacement; Left wrist surgery; Right knee ld1 replacement; Spinal surgery; - Immunization history:: Adult Immunizations up to date, Client reports receiving the 2nd dose of the Covid vaccine. - Social history:: Smoking status: Patient reports the use of cigarette tobacco products, smokes one-half pack cigarettes per day, Patient uses alcohol. Screenin:31 Abuse screen: Denies threats or abuse. Denies injuries from another. Nutritional tp1 screening: No deficits noted. Tuberculosis screening: No symptoms or risk factors identified. Fall Risk Fall in past 12 months (25 points). Secondary diagnosis (15 points) hepatic encephalopathy . IV access (20 points). Ambulatory Aid- None/Bed Rest/Nurse Assist (0 pts). Gait- Impaired (20 pts.). Mental Status- Oriented to own ability (0 pts). Total Carranza Fall Scale indicates High Risk Score (45 or more points). Fall prevention measures have been instituted. Side Rails Up X 2 Placed Close to Nursing Station Frequent Obs/Assessments Occuring Family Present and informed to notify staff if the need to leave the bedside As available patient and family educated on Fall Prevention Program and Strategies. Primary Survey: 20:50 NO uncontrolled hemorrhage observed. Breathing/Chest: Spontaneous respiratory effort, bb equal unlabored respirations, breath sounds clear bilaterally, regular pattern, symmetrical chest rise and fall. Circulation: No external hemorrhage present. Regular and strong central pulse, skin warm/dry/normal color. Disability Client is alert. Secondary Survey: 20:50 HEENT: Head Other laceration below chin. Gastrointestinal: No deficits noted. bb Musculoskeletal: Circulation, motion, and sensation intact. Injury Description: Abrasion sustained to dorsal aspect of left forearm. Assessment: 20:27 General: Appears in no apparent distress. uncomfortable, Behavior is calm, cooperative. tp1 Pain: Complains of pain in neck and left arm, right hip Pain does not radiate. Pain currently is 8 out of 10 on a pain scale. Pain began 4 hours ago. Neuro: Level of Consciousness is awake, alert, obeys commands, Oriented to person, place, time, situation, states PT is slightly more confused than normal . Reports headache. Cardiovascular: Patient's skin is warm and dry. Respiratory: Airway is patent Respiratory effort is even, unlabored. GI: Abdomen is flat, non-distended, Abd is soft. : No signs and/or symptoms were reported regarding the genitourinary system. EENT: Nares are clear. Derm: Skin is pink, warm \\T\\ dry. Musculoskeletal: Circulation, motion, and sensation intact. Injury Description: Abrasion sustained to left arm Laceration sustained to right side of chin is clean, bleeding controlled. 21:32 Reassessment: Patient appears in no apparent distress at this time. No changes from tp1 previously documented assessment. Patient and/or family updated on plan of care and expected duration. Pain level reassessed. Patient is alert, oriented x 3, equal unlabored respirations, skin warm/dry/pink. pain unchanged. 22:40 Reassessment: Patient appears in no apparent distress at this time. No changes from tp1 previously documented assessment. Patient is alert, oriented x 3, equal unlabored respirations, skin warm/dry/pink. 10/05 00:47 Reassessment: Patient is alert, oriented x 3, equal unlabored respirations, skin bb warm/dry/pink. Baldemar DOWLING at bedside for suture of chin. 02:20 Reassessment: Patient is alert, oriented x 3, equal unlabored respirations, skin bb warm/dry/pink. wound to left forearm cleaned and redressed with 4x4s and tape, blood on face cleaned off bandage applied over wound suture line intact. Pt and spouse verbalized understanding of and agrees to plan of care discharge instructions given pt assisted to exit via wheelchair accompanied by family. Vital Signs: 10/04 20:14 BP 102 / 72; Pulse 85; Resp 18; Temp 97.9(O); Pulse Ox 97% on R/A; Weight 40.82 kg; ld1 Height 5 ft. 1 in. (154.94 cm); Pain 8/10; 21:35 BP 101 / 89; Pulse 81; Resp 15; Pulse Ox 100% on R/A; tp1 22:00 BP 112 / 78; Pulse 88; Resp 18; Pulse Ox 99% on R/A; tp1 10/05 02:23 BP 99 / 71; Pulse 79; Resp 14 S; Temp 97.8(O); Pulse Ox 94% on R/A; bb 10/04 20:14 Body Mass Index 17.01 (40.82 kg, 154.94 cm) ld1 [place] Coma Score: 10/04 20:50 Eye Response: spontaneous(4). Verbal Response: oriented(5). Motor Response: obeys bb commands(6). Total: 15. 21:35 Eye Response: spontaneous(4). Verbal Response: oriented(5). Motor Response: obeys tp1 commands(6). Total: 15. 22:00 Eye Response: spontaneous(4). Verbal Response: oriented(5). Motor Response: obeys tp1 commands(6). Total: 15. Trauma Score (Adult): 20:50 Eye Response: spontaneous(1); Verbal Response: oriented(1); Motor Response: obeys bb commands(2); Systolic BP: > 89 mm Hg(4); Respiratory Rate: 10 to 29 per min(4); [place] Score: 15; Trauma Score: 12 21:35 Eye Response: spontaneous(1); Verbal Response: oriented(1); Motor Response: obeys tp1 commands(2); Systolic BP: > 89 mm Hg(4); Respiratory Rate: 10 to 29 per min(4); [place] Score: 15; Trauma Score: 12 22:00 Eye Response: spontaneous(1); Verbal Response: oriented(1); Motor Response: obeys tp1 commands(2); Systolic BP: > 89 mm Hg(4); Respiratory Rate: 10 to 29 per min(4); Boyd Score: 15; Trauma Score: 12 ED Course: 20:01 Patient arrived in ED. dt4 20:16 Triage completed. ld1 20:18 Arm band placed on right wrist. ld1 20:19 Baldemar Norman PA is PHCP. cp 20:19 Anaya Ruvalcaba MD is Attending Physician. cp 20:26 Komal Briseno RN is Primary Nurse. tp1 20:32 Patient has correct armband on for positive identification. Bed in low position. Call tp1 light in reach. Side rails up X2. Adult w/ patient. 20:32 Client placed on continuous cardiac and pulse oximetry monitoring. NIBP monitoring tp1 applied. 20:50 Patient maintains SpO2 saturation greater than 95% on room air. bb 20:55 Inserted saline lock: 20 gauge in left antecubital area, using aseptic technique. Blood tp1 collected. 21:12 XRAY Chest (1 view) In Process Unspecified. EDMS 21:12 XRAY Pelvis In Process Unspecified. EDMS 21:12 XRAY Hip RIGHT 2 view In Process Unspecified. EDMS 21:35 EKG done. tp1 22:41 Straight cath inserted, using sterile technique, 16 Fr. Specimen obtained. Returned tp1 300mL collected . Patient tolerated well. 22:58 CT Facial Bones W/O Con In Process Unspecified. EDMS 22:58 Head C Spine Cap Wo Con In Process Unspecified. EDMS 11 01:29 LAB Add On Sent. bb 02:23 Assist provider with laceration repair on submental area that was between 2.6 to 7.5 cm bb using sutures. Set up tray. Performed by Baldemar DOWLING Dressed with band aid, Patient tolerated well. IV discontinued, intact, bleeding controlled, No redness/swelling at site. Pressure dressing applied. Administered Medications: 10/04 20:59 Drug: NS 0.9% 500 ml Route: IV; Rate: bolus; Site: left antecubital; tp1 21:30 Follow up: IV Status: Completed infusion; IV Intake: 500ml tp1 21:15 Drug: NS 0.9% 500 ml Route: IV; Rate: 100 ml/hr; Site: left antecubital; tp1 21:23 Drug: SOLU-Medrol (methylPrednisoLONE) 80 mg Route: IVP; Site: left antecubital; tp1 21:27 Drug: Benadryl (diphenhydrAMINE) 12.5 mg Route: IVP; Site: left antecubital; tp1 21:28 Drug: Pepcid (famotidine) 20 mg Route: IVP; Site: left antecubital; tp1 10/05 00:59 Drug: Lidocaine (1 %) 10 ml {Note: administered by Baldemar DOWLING to affected area.} bb Volume: 5 ml; Route: Infiltration; 02:20 Follow up: Response: No adverse reaction bb 02:05 Drug: Potassium Effervescent Tablet 25 mEq Route: PO; bb 02:20 Follow up: Response: No adverse reaction bb Medication: 02:25 VIS not applicable for this client. bb Intake: 10/04 20:50 PO: 0ml; Total: 0ml. bb 21:30 IV: 500ml; Total: 500ml. tp1 Outcome: 10/05 01:41 Discharge ordered by . cp 02:24 Discharged to home via wheelchair, with family. bb 02:24 Condition: stable 02:24 Discharge instructions given to patient, family, Instructed on discharge instructions, follow up and referral plans. medication usage, wound care, Demonstrated understanding of instructions, follow-up care, medications, wound care, Prescriptions given X 1. 02:25 Patient left the ED. bb Signatures: Dispatcher [employer] EDMS Blanca Shipley RN RN bb Baldemar Norman PA PA cp Dibbern, Lauren RN RN ld1 Komal Briseno RN RN tp1 Nancy White dt4 Corrections: (The following items were deleted from the chart) 10/04 21:35 21:34 Inserted saline lock: 20 gauge in left antecubital area, using aseptic technique. tp1 Blood collected. tp1
--- NOTE | 2022-10-05 01:42 | EDPHYS ---
Physician Documentation [facility] Name: Pratibha Jennings Age: 57 yrs Sex: Female : 1965 Arrival Date: 10/04/2022 Time: 20:01 Bed 28 Private MD: ED Physician Anaya Ruvalcaba HPI: 10/04 20:30 This 57 yrs old Female presents to ER via Wheelchair with complaints of Fall Injury, cp Laceration To Arm, Laceration To Chin. 20:30 Details of fall: The patient fell from an upright position, while walking. cp 20:30 Onset: The symptoms/episode began/occurred today. Associated injuries: The patient cp sustained injury to the head, laceration, of the right jaw. 20:30 Patient reports she was in kitchen when she lost her balance and fell, was able to get cp up and then fell again in bedroom striking head. Historical: - Allergies: 20:16 Iodine; topical; ld1 20:16 Latex, Natural Rubber; ld1 - PMHx: 20:16 Back pain; Chronic pain; Degenerative disc disease; Hyperlipidemia; ADD/ADHD; ld1 Hypertension; Hepatic encephalopathy; - PSHx: 20:16 Disc removal; Left clavicle; Left knee replacement; Left wrist surgery; Right knee ld1 replacement; Spinal surgery; - Immunization history:: Adult Immunizations up to date, Client reports receiving the 2nd dose of the Covid vaccine. - Social history:: Smoking status: Patient reports the use of cigarette tobacco products, smokes one-half pack cigarettes per day, Patient uses alcohol. ROS: 20:35 Constitutional: Negative for body aches, chills, fever. cp 20:35 Eyes: Negative for injury, pain, redness, and discharge. cp 20:35 ENT: Negative for ear pain, sore throat, difficulty swallowing, difficulty handling secretions. 20:35 Cardiovascular: Negative for chest pain. 20:35 Respiratory: Negative for cough, shortness of breath, wheezing. 20:35 Abdomen/GI: Negative for abdominal pain, vomiting, diarrhea, constipation. 20:35 : Negative for urinary symptoms. 20:35 Neuro: Negative for altered mental status, headache, syncope. 20:35 All other systems are negative. Exam: 20:40 Constitutional: The patient appears in no acute distress, alert, awake, cp non-diaphoretic, non-toxic, well developed, well nourished. 20:40 Head/face: Noted is a laceration(s), that is deep, that is linear, of the right jaw. cp 20:40 Eyes: Periorbital structures: appear normal, Pupils: equal, round, and reactive to light and accomodation, Extraocular movements: intact throughout, Conjunctiva: normal, no exudate, no injection, Sclera: no appreciated abnormality, Lids and lashes: appear normal, bilaterally. 20:40 ENT: External ear(s): are unremarkable, Ear canal(s): are normal, clear, TM's: dullness, bilaterally, Nose: is normal, Mouth: Lips: moist, Oral mucosa: pink and intact, moist, Posterior pharynx: Airway: no evidence of obstruction, patent. 20:40 Neck: C-spine: C-collar placed in ED, vertebral tenderness, that is mild, appreciated at C5 and C6, crepitus, is not appreciated. 20:40 Chest/axilla: Inspection: normal, Palpation: is normal, no crepitus, no tenderness. 20:40 Cardiovascular: Rate: normal, Rhythm: regular, Edema: is not appreciated, JVD: is not appreciated. 20:40 Respiratory: the patient does not display signs of respiratory distress, Respirations: normal, no use of accessory muscles, no retractions, labored breathing, is not present, Breath sounds: are clear throughout, no decreased breath sounds, no stridor, no wheezing. 20:40 Abdomen/GI: Inspection: abdomen appears normal, Bowel sounds: active, all quadrants, Palpation: soft, in all quadrants, mild abdominal tenderness, in the right lower quadrant and left lower quadrant. 20:40 Back: vertebral tenderness, is not appreciated. 20:40 Musculoskeletal/extremity: Extremities: grossly normal except: noted in the dorsal aspect of left forearm: skin tear. 20:40 Neuro: Orientation: to person, place \T\ time. Mentation: able to follow commands, slow to respond, Motor: moves all fours, strength is normal, Sensation: no obvious gross deficits. 21:17 ECG was reviewed by the Attending Physician. cp Vital Signs: 20:14 BP 102 / 72; Pulse 85; Resp 18; Temp 97.9(O); Pulse Ox 97% on R/A; Weight 40.82 kg; ld1 Height 5 ft. 1 in. (154.94 cm); Pain 8/10; 21:35 BP 101 / 89; Pulse 81; Resp 15; Pulse Ox 100% on R/A; tp1 22:00 BP 112 / 78; Pulse 88; Resp 18; Pulse Ox 99% on R/A; tp1 10/05 02:23 BP 99 / 71; Pulse 79; Resp 14 S; Temp 97.8(O); Pulse Ox 94% on R/A; bb 10/04 20:14 Body Mass Index 17.01 (40.82 kg, 154.94 cm) ld1 [place] Coma Score: 10/04 20:50 Eye Response: spontaneous(4). Verbal Response: oriented(5). Motor Response: obeys bb commands(6). Total: 15. 21:35 Eye Response: spontaneous(4). Verbal Response: oriented(5). Motor Response: obeys tp1 commands(6). Total: 15. 22:00 Eye Response: spontaneous(4). Verbal Response: oriented(5). Motor Response: obeys tp1 commands(6). Total: 15. Trauma Score (Adult): 20:50 Eye Response: spontaneous(1); Verbal Response: oriented(1); Motor Response: obeys bb commands(2); Systolic BP: > 89 mm Hg(4); Respiratory Rate: 10 to 29 per min(4); [place] Score: 15; Trauma Score: 12 21:35 Eye Response: spontaneous(1); Verbal Response: oriented(1); Motor Response: obeys tp1 commands(2); Systolic BP: > 89 mm Hg(4); Respiratory Rate: 10 to 29 per min(4); [place] Score: 15; Trauma Score: 12 22:00 Eye Response: spontaneous(1); Verbal Response: oriented(1); Motor Response: obeys tp1 commands(2); Systolic BP: > 89 mm Hg(4); Respiratory Rate: 10 to 29 per min(4); [place] Score: 15; Trauma Score: 12 Laceration: 10/05 02:00 Wound Repair of 3cm ( 1.2in ) subcutaneous laceration to right lower jaw. Linear cp shaped.. Distal neuro/vascular/tendon intact. Anesthesia: Wound infiltrated with 4 mls of 1% lidocaine. Wound prep: Simple cleansing by me. Skin closed with 8 6-0 Prolene using interrupted sutures and sterile technique. Dressed with Bacitracin. Patient tolerated well. MDM: 10/04 20:25 Patient medically screened. cp 21:00 Differential diagnosis: closed head injury, contusion, fracture, laceration, multiple cp trauma. 10/05 01:40 Data reviewed: vital signs, nurses notes, lab test result(s), EKG, radiologic studies, cp CT scan, plain films. 01:40 Test interpretation: by ED physician or midlevel provider: ECG, plain radiologic cp studies. Counseling: I had a detailed discussion with the patient and/or guardian regarding: the historical points, exam findings, and any diagnostic results supporting the discharge/admit diagnosis, lab results, radiology results, to return to the emergency department if symptoms worsen or persist or if there are any questions or concerns that arise at home. Response to treatment: the patient's symptoms have markedly improved after treatment, and as a result, I will discharge patient. 10/04 20:27 Order name: Basic Metabolic Panel; Complete Time: :32 cp 10/04 22:00 Interpretation: Normal except: NA 129; K 3.4; CL 95; GLUC 132; CRE 1.51; GFR 40. cp 10/04 20:27 Order name: CBC with Diff; Complete Time: 23:43 cp 10/04 22:00 Interpretation: Normal except: WBC 18.00; HGB 11.0; HCT 34.4; MCV 74.0; MCH 23.8; RDW cp 20.1; JOSAFAT% 82.2; LYM% 10.1; NEUT A 14.8. 10/04 20: Order name: Magnesium; Complete Time: :32 cp 10/04 20:27 Order name: PT-INR; Complete Time: 22:00 cp 10/04 20:27 Order name: Troponin HS; Complete Time: :32 cp 10/04 20:27 Order name: UDS; Complete Time: 23:43 cp 10/04 23:43 Interpretation: Normal except: THC POSITIVE. cp 10/04 20:27 Order name: Urine Microscopic Only; Complete Time: 23:43 cp 10/04 20:28 Order name: ETOH Level; Complete Time: 22:00 cp 10/04 20:28 Order name: AMMONIA; Complete Time: 21:52 10/04 20:28 Order name: Acetaminophen; Complete Time: 01:32 10/04 20:39 Order name: CK; Complete Time: 22:13 10/04 23:44 Interpretation: CPK 772; Reviewed. 10/04 22:21 Order name: CBC Smear Scan; Complete Time: 23:43 EDMS 10/04 22:41 Order name: Urine Dipstick-Ancillary; Complete Time: 23:43 EDOK 10/04 23:48 Order name: LAB Add On 10/04 20:27 Order name: XRAY Chest (1 view); Complete Time: 23:43 10/04 23:44 Interpretation: Report review. 10/04 20:27 Order name: EKG; Complete Time: 20:28 10/04 20:27 Order name: XRAY Pelvis; Complete Time: 23:43 10/04 23:44 Interpretation: Report reviewed. 10/04 20:27 Order name: XRAY Hip RIGHT 2 view; Complete Time: 23:43 10/04 23:45 Interpretation: Report reviewed. 10/04 20:39 Order name: CT Facial Bones W/O Con 10/04 22:10 Order name: Head C Spine Cap Wo Con EDOK 10/04 23:57 Order name: Liver (Hepatic) Function; Complete Time: 01:32 EDOK 10/04 20:27 Order name: Cardiac monitoring; Complete Time: 21:17 10/04 20:27 Order name: EKG - Nurse/Tech; Complete Time: 21:17 10/04 20:27 Order name: IV Saline Lock; Complete Time: 20:59 10/04 20:27 Order name: Labs collected and sent; Complete Time: 20:59 10/04 20:27 Order name: O2 Per Protocol; Complete Time: 20:32 10/04 20:27 Order name: O2 Sat Monitoring; Complete Time: 20:32 10/04 20:27 Order name: Urine Dipstick-Ancillary (obtain specimen); Complete Time: 21:31 10/04 22:01 Order name: Cath; Complete Time: 22:41 10/05 00:16 Order name: Dressing - Wound; Complete Time: 00:38 10/05 00:16 Order name: Gloves, Sterile; Complete Time: 00:38 10/05 00:16 Order name: Setup Suture Tray; Complete Time: 00:38 cp EC/07 21:17 Rate is 81 beats/min. Rhythm is regular. TX interval is normal. QRS interval is normal. cp QT interval is prolonged at 442 msec. T waves are Inverted in lead aVR. Interpreted by me. Reviewed by me. Administered Medications: 20:59 Drug: NS 0.9% 500 ml Route: IV; Rate: bolus; Site: left antecubital; tp1 21:30 Follow up: IV Status: Completed infusion; IV Intake: 500ml tp1 21:15 Drug: NS 0.9% 500 ml Route: IV; Rate: 100 ml/hr; Site: left antecubital; tp1 21:23 Drug: SOLU-Medrol (methylPrednisoLONE) 80 mg Route: IVP; Site: left antecubital; tp1 21:27 Drug: Benadryl (diphenhydrAMINE) 12.5 mg Route: IVP; Site: left antecubital; tp1 21:28 Drug: Pepcid (famotidine) 20 mg Route: IVP; Site: left antecubital; tp1 11 00:59 Drug: Lidocaine (1 %) 10 ml {Note: administered by Baldemar DOWLING to affected area.} bb Volume: 5 ml; Route: Infiltration; 02:20 Follow up: Response: No adverse reaction bb 02:05 Drug: Potassium Effervescent Tablet 25 mEq Route: PO; bb 02:20 Follow up: Response: No adverse reaction bb Disposition Summary: 10/05/22 01:41 Discharge Ordered Location: Home cp Problem: new cp Symptoms: have improved cp Condition: Stable cp Diagnosis - Fall on same level from slipping, tripping and stumbling with subsequent striking cp against object - Laceration without foreign body of other part of head - right lower jaw cp - Abnormal results of liver function studies cp Followup: cp - With: Private Physician - When: 7 - 10 days - Reason: Staple/Suture removal Discharge Instructions: - Discharge Summary Sheet cp - Head Injury, Adult cp - Fall Prevention in the Home, Adult cp - Facial Laceration cp Forms: - Medication Reconciliation Form cp - Thank You Letter cp - Antibiotic Education cp - Prescription Opioid Use cp Prescriptions: - Cephalexin 500 mg Oral Capsule - take 1 capsule by ORAL route every 8 hours for 10 days; 30 capsule; Refills: 0, cp Product Selection Permitted Signatures: Dispatcher [employer] EDMS Blanca Shipley, RN RN Alejandro Chapman, CERTIFIED HAND THERAPIST-C CERTIFIED HAND THERAPIST-Cla1 Baldemar Norman PA PA cp Layne White RN RN ld1 Komal Briseno RN RN tp1 Corrections: (The following items were deleted from the chart) 10/04 22:10 20:39 Head C Spine CAP W Con+CT.RAD.BRZ ordered. EDMS EDMS 23:57 23:49 HEPATIC FUNCTION+C.LAB.BRZ ordered. EDMS EDMS 10/06 01:44 10/05 02:30 Wound Repair of 3cm ( 1.2in ) subcutaneous laceration to right lower jaw. cp Linear shaped.. Distal neuro/vascular/tendon intact. Anesthesia: Wound infiltrated with 4 mls of 1% lidocaine. Wound prep: Simple cleansing by me. Skin closed with 8 6-0 Prolene using interrupted sutures and sterile technique. Dressed with Bacitracin. Patient tolerated well. cp
[2022-10-05] MEDS ORDERED: POTASSIUM 25 MEQ EFFERV TAB ONE (01:54)
[2022-10-05 03:48] VITALS: BP 99/71; TEMP 97.8; O2SAT 94
--- NOTE | 2022-10-05 11:26 | RAD REPORT ---
EXAM DESCRIPTION: CT - Facial Bones W/ Mpr - 10/04/2022 10:56 pm CLINICAL HISTORY: 57 years Female fall TECHNIQUE: Contiguous axial images obtained through the face, mandible, and brain without IV contras t. Coronal and sagittal reformatted images provided. This CT exam was performed according to our departmental dose-optimization program, which includes on e or more of the following dose reduction techniques: automated exposure control, adjustment of the m A and/or kV according to patient size, and/or use of iterative reconstruction technique. COMPARISON: No prior exams provided for comparison. FINDINGS: There is a soft tissue laceration inferior to the body of the right mandible without radio dense foreign body. No acute facial or mandibular fracture. No temporomandibular joint dislocation. Intraorbital soft tissue structures are intact bilaterally. The paranasal sinuses and mastoid air elal ls are clear. No acute cranial vault fracture. No acute intracranial hemorrhage, extra-axial collection, mass effec t, midline shift, or evidence of acute transcortical infarction. The ventricles are symmetric without hydrocephalus. IMPRESSION: Laceration inferior to the body of the right mandible. No foreign body. No acute facial fracture, orbital injury, or intracranial injury. Electronically signed by: Molly Perrin MD 10/04/2022 11:22 PM RENTAL SALESPERSON Due to temporary technical issues with the PACS/Fluency reporting system, reports are being signed by the in house radiologists without review as a courtesy to insure prompt reporting. The interpreting radiologist is fully responsible for the content of the report.
--- NOTE | 2022-10-05 11:38 | RAD REPORT ---
EXAM DESCRIPTION: CT - Head C Spine Cap Wo Con - 10/04/2022 10:56 pm CLINICAL HISTORY: 57 years, Female, fall COMPARISON: None FINDINGS: Multiple transaxial tomograms of the brain were obtained from the base of the skull to the vertex without contrast. 2-D multiplanar reformats and the coronal and sagittal plane were performed and reviewed. Multiple axial CT images through the cervical spine were obtained at 2 mm slice thickness at 2 mm int erval reconstruction. In addition 2-D multiplanar reformats and the sagittal coronal plane were perfo rmed and reviewed. Multiple transaxial tomograms of the chest, abdomen and pelvis were performed from the lung bases to the symphysis pubis , without administration of IV and oral contrast. This exam was performed according to our departmental dose-optimization protocol, which includes auto mated exposure control, adjustment of the mA and/or kV according to patient size and/or use of iterat elian reconstruction technique. The lack of IV and oral contrast limits evaluation of solid organs, subtle lesions cannot be excluded . CT head without: Brain parenchyma as well as the arreola and white matter differentiation demonstrate to be unremarkable. There is mild brain atrophy. Small focal area of hypodensity within the right basal ganglia correspond to a small old lacunar infarct. There is no midline shift and/or mass effect. The re is no evidence for acute hemorrhage. Lateral ventricles and cisterns displace normal appearance. No intra or extra axial fluid collections were seen. The calvarium is intact with no evidence for fracture. The visualized portions of the paranasal sinuses and orbits demonstrate to be clear. CT C-spine: The alignment vertebral bodies are normal. There is no evidence of fracture or subluxat ion. There is very minimal degenerative disc disease with decreased intervertebral disc height, anter ior spondylosis and posterior osteophyte complex at C5/C6. There is minimal anterolisthesis of the C5 over C6 from uncovertebral degenerative changes The spinal canal demonstrate no evidence for signifi cant stenosis. Neural foramina demonstrate to be unremarkable. There are not minimal uncovertebral de generative changes at C3-C7. There is no prevertebral soft tissue swelling. There are carotid artery vascular calcifications Sagittal coronal reformatted images demonstrate no subluxation or bony abno rmalities. CT chest: The lungs parenchyma demonstrate minimal paraseptal emphysematous changes upper lobes. Ther e are intralobular and interlobular septal thickening throughout the lungs slightly more pronounced l ower lobes with superimposed compressive atelectatic changes/or infiltrate. There are no evidence for pneumothorax. No masses and/or nodules are identified. The trachea mainstem bronchus demonstrate to be normal. There is no significant pleural and/or perica rdial effusions. The thoracic aorta demonstrate intimal aortic arch calcification as well as atherosclerotic disease p roximal aspect great vessels. The heart is not enlarged. There are coronary artery calcifications. There is a moderate size hiatal hernia with a questionable mucosal thickening and/or fluid distal eso phagus. There is no significant mediastinal and/or hilar lymphadenopathy. The axillary regions demonstrate to be clear. The bone windows demonstrate to be within normal limits visualized portions of the right clavicle dem onstrate to be unremarkable. There is nonunion/or suppression mid shaft left clavicle. The humeral heads and bilateral scapulas demonstrate to be within normal limits. Sternum, thoracic sp ine demonstrate small superior endplate compression deformity at T3 vertebral body there is a epidura l neurostimulator at the T12/L1. The ribs demonstrate no definitive significant displaced fracture CT abdomen and pelvis: Grossly the unopacified liver, gallbladder, pancreas, spleen and adrenal gland s demonstrate to be within normal limits, no significant focal lesions were identified. The kidneys demonstrate grossly unremarkable. There is no evidence for nephrolithiasis and/or hydro nephrosis. No focal masses were demonstrated. Grossly the unopacified stomach, small bowel and large bowel demonstrate to be within normal limits. There is no evidence for bowel dilatation/or free air. There is fecal stasis. The urinary bladder demonstrate to be within normal limits. The uterus demonstrate to be within nayeli l limits. There are no adnexal masses The aorta demonstrate atherosclerotic disease extending into th e aortic bifurcation/iliac arteries. There is no retroperitoneal lymphadenopathy. There is no sb dence for ascites. The bone windows demonstrate mild diffuse bony osteopenia. No significant compress ion deformity. Spinous processes, transverse processes demonstrate to be unremarkable. Sacrum, sacroi liac joints, bilateral hip joints, superior and inferior pubic ramus, bilateral hip joints and visual ized portions of the proximal femurs demonstrate to be within normal limits. IMPRESSION: No evidence for acute intracranial hemorrhage, mass effect or midline shift. Small old lacunar infarct within the right basal ganglia. No evidence for acute fracture or subluxation of the cervical spine. Minimal degenerative disc disease at C5/C6. Small superior endplate compression deformity at T3 vertebral body age indeterminate. Moderate size hiatal hernia with a questionable mucosal thickening and/or fluid distal esophagus. Coronary artery calcifications. Diffuse intralobular and interlobular septal thickening throughout the lungs slightly more pronounced lower lobes with superimposed compressive atelectatic changes and/or infiltrate. Status post epidural neurostimulator at the T12/L1 level. Fecal stasis. Atherosclerotic disease of the aorta and coronary arteries. Electronically signed by: Yaya Arnold MD 10/04/2022 11:34 PM GROUND SURVEILLANCE SYSTEMS OPERATOR Due to temporary technical issues with the PACS/Fluency reporting system, reports are being signed by the in house radiologists without review as a courtesy to insure prompt reporting. The interpreting radiologist is fully responsible for the content of the report.
--- NOTE | 2022-10-05 13:56 | EKG ---
Test Date: 2022-10-04 Test Time: 21:12:51 It Communications Manager: TP MEASUREMENT RESULTS: Intervals: Rate: 81 [place]: 144 QRSD: 76 QT: 442 QTc: 513 [place]: P: 42 [place]: 144 QRS: 50 T: 98 INTERPRETIVE STATEMENTS: Normal sinus rhythm Left ventricular hypertrophy with repolarization abnormality Prolonged QT Abnormal ECG Compared to ECG 09/15/2022 18:08:18 Atrial abnormality no longer present Electronically Signed On 10-05-22 13:54:27 [employer] by Sree Chen
== END 2022-10-05 02:25 | disposition home or self-care (01) ==
LOC: ER 19:56
PROC: 0JQ10ZZ Repair Face Subcutaneous Tissue and Fascia, Open Approach (ICD-10-PCS; principal; 2022-10-05)
DX: S01.81XA Laceration without foreign body of other part of head, initial encounter (principal); R94.5 Abnormal results of liver function studies; W01.10XA Fall on same level from slipping, tripping and stumbling with subsequent striking against unspecified object, initial encounter; I10 Essential (primary) hypertension; F17.210 Nicotine dependence, cigarettes, uncomplicated; Z91.040 Latex allergy status; Z91.048 Other nonmedicinal substance allergy status; Z96.653 Presence of artificial knee joint, bilateral
CPT/HCPCS: 93005; 85025; 80048; 36415; 80320; 82140; 83735; 82550; 80329; 85610; 80076; 84484; 80307; 70450; 71250; 72125; 70486; 76377; 71045; 72170; 73502; 12013; J1200; J7040; J2920; 51702; 81003; 81015; 96361; 96374; 96375; 99285

== ENCOUNTER 2022-10-05 16:17 | Inpatient (IN) | payer OTHER ==
--- OUTSIDE RECORDS SUMMARY | 2022-10-05 16:29 | XMS REPORT | Continuity of Care Document ---
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 Aspirin 81 2020-0 Yes 81 mg = 1 Me moria MG Enteric 1-09 tab, PO, l Coated 23:31: Daily, # [place] Tablet 00 90 tab, 3 Refill(s) aspirin 81 2020-0 Yes 81 mg = 1 Me moria mg tablet, 1-09 tab, PO, l enteric 23:31: Daily, # Reece n coated 00 90 tab, 3 Refill(s) Aspirin 81 2020-0 Yes 81 mg = 1 Me moria MG Enteric 1-09 tab, PO, l Coated 23:31: Daily, # [place] Tablet 00 90 tab, 3 Refill(s) aspirin 81 2020-0 Yes 81 mg = 1 Me moria mg tablet, 1-09 tab, PO, l enteric 23:31: Daily, # [...] tab, PO, l Coated 23:31: Daily, # [place] Tablet 00 90 tab, 3 Refill(s) aspirin 81 2020-0 Yes 81 mg = 1 Me moria mg tablet, - tab, PO, l enteric 23:31: Daily, # Reece n coated 00 90 tab, 3 Refill(s) oxcarbazepi 2020-0 Yes 150 mg = 1 Memoria ne 150 MG - tab, PO, l Oral Tablet 23:05: Bedtime, # [place] [Trileptal] 00 30 tab, 3 Refill(s), [facility]acy: [facility] #[id number] oxcarbazepi 2020-0 Yes 150 mg = 1 Memoria ne 150 MG - tab, PO, l Oral Tablet 23:05: Bedtime, # [place] [Trileptal] 00 30 tab, 3 Refill(s), Pharmacy: [facility] #[id number] oxcarbazepi 2020-0 Yes 150 mg = 1 Memoria ne 150 MG -09 tab, PO, l Oral Tablet 23:05: Bedtime, # [place] [Trileptal] 00 30 tab, 3 Refill(s), Pharmacy: [facility] #[id number] oxcarbazepi 2020-0 Yes 150 mg = 1 Memoria ne 150 MG -09 tab, PO, l Oral Tablet 23:05: Bedtime, # [place] [Trileptal] 00 30 tab, 3 Refill(s), Pharmacy: [facility] #[id number] oxcarbazepi 2020-0 Yes 150 mg = 1 Memoria ne 150 MG 1-09 tab, PO, l Oral Tablet 23:05: Bedtime, # [place] [Trileptal] 00 30 tab, 3 Refill(s), Pharmacy: [facility] ST[facility] #[id number] atorvasta 2018-11 Yes 40 mg = 1 M emoria n 40 mg 2-11 tab, PO, l oral tablet 23:32: Daily, # [place] 39 30 tab, 2 Refill(s), Pharmacy: [id number] [facility] Yes 40 mg = 1 M emoria n 40 mg 2-11 tab, PO, l oral tablet 23:32: Daily, # [place] 39 30 tab, 2 Refill(s), Pharmacy: [facility] #[id number] [facility]11 Yes 40 mg = 1 M emoria n 40 mg 2-11 tab, PO, l oral tablet 23:32: Daily, # [place] r[place] 39 30 tab, 2 Refill(s), Pharmacy: [facility] #[id number] [facility]11 Yes 40 mg = 1 M emoria n 40 mg 2-11 tab, PO, l oral tablet 23:32: Daily, # [place] r[place] 39 30 tab, 2 Refill(s), Pharmacy: [facility] #[id number] [facility]11 Yes 40 mg = 1 M emoria n 40 mg 2-11 tab, PO, l oral tablet 23:32: Daily, # [place] r[place] 39 30 tab, 2 Refill(s), Pharmacy: [facility] #[id number] dexlansopra 2018-11 Yes 60mg Take 60 mg [...] st MG tablet 11:55: Hospita 03 l FLUoxetine 2018-11 Yes 20mg Take [...] MG tablet 11:55: Hospita 03 l sucralfate 2018- Yes 1g Take 1 g [facility] (CARAFATE) 2-[address] 1 gram 11:55: Hospita tablet 03 l sucralfate 2018- Yes 1g Take 1 g [facility] [...] MG tablet 11:55: Hospita 03 l sucralfate 2019- Yes 1g Take 1 g [facility] [...] for l sleep. gabapentin 2018-11 Yes 600mg Q.[id number] Take 600 [facility] (NEURONTIN) 2-10 [id number] mg by s t 600 mg 11:46: [...] for l sleep. gabapentin 2018-11 Yes 600mg Q.[id number] Take 600 [facility] (NEURONTIN) 2-10 [id number] mg by s t 600 mg 11:46: [...] for l sleep. gabapentin 2018-11 Yes 600mg Q.[id number] Take 600 [facility] (NEURONTIN) 2-10 [id number] mg by s t 600 mg 11:46: [...] for l sleep. gabapentin 2018-11 Yes 600mg Q.[id number] Take 600 [facility] (NEURONTIN) 2-10 [id number] mg by s t 600 mg 11:46: [...] for l sleep. gabapentin 2018-11 Yes 600mg Q.[id number] Take 600 [facility] (NEURONTIN) 2-10 [id number] mg by s t 600 mg 11:46: [...] QD Take [address] [facility] (LIPITOR) -29 tablet (20 Ebony kes 20 MG 00:00: [...] hours off . gabapentin 2018-11 Yes 600mg Q.[id number] Take [address] [facility] (NEURONTIN) 1-18 [id number] mg by L ukes 600 MG 17:29: [...] Medical tablet 52 times Center daily. sucralfate 2019 Yes 1g Q.25D Take 1 g [facility] [...] hours off . gabapentin 2018-11 Yes 600mg Q.[id number] Take [address] (NEURONTIN) 1-18 [id number] mg by L ukes 600 MG 17:29: [...] MG tablet 17:29: every Medical 52 morning. [place] dexlansopra 2018-11 Yes 60mg QD Take 60 [...] hours off . gabapentin 2018-11 Yes 600mg Q.[id number] Take [address] [facility] [address] (NEURONTIN) 1-18 [id number] mg by L ukes 600 MG 17:29: [...] hours off . gabapentin 2018-11 Yes 600mg Q.[id number] Take [address] (NEURONTIN) 1-18 [id number] mg by L ukes 600 MG 17:29: [...] MG tablet 17:29: every Medical 52 morning. [place] dexlansopra 2018-11 Yes 60mg QD Take [address] [facility] zole 60 mg 1-18 by [facility] topiramate 2018-11 [...] n [Topamax] 02 tab, 2 Refill(s), Pharmacy: [facility] #[id number] topiramate 2018-11 Yes 25 mg = 1 Me moria 25 MG Oral 0-23 tab, PO, l Tablet 18:40: BID, # 60 Reece n [Topamax] 02 tab, 2 Refill(s), [id number] topiramate 2018-11 Yes 25 mg = 1 Me moria 25 MG Oral 0-23 tab, PO, l Tablet 18:40: BID, # 60 Reece n [Topamax] 02 tab, 2 Refill(s), Pharmacy: [facility] #[id number] topiramate 2018-11 Yes 25 mg = 1 Me moria 25 MG Oral 0-23 tab, PO, l Tablet 18:40: BID, # 60 Reece n [Topamax] 02 tab, 2 Refill(s), Pharmacy: [facility] #[id number] topiramate 2018-11 Yes 25 mg = 1 Me moria 25 MG Oral 0-23 tab, PO, l Tablet 18:40: BID, # 60 Reece n [Topamax] 02 tab, 2 Refill(s), Pharmacy: [facility] #[id number] topiramate Yes 25 mg = 1 Me moria 25 MG Oral 8-21 tab, PO, l Tablet 15:45: Bedtime, # [place] nn [Topamax] 00 30 tab, 2 Refill(s), Pharmacy: [facility] #[id number] topiramate Yes 25 mg = 1 Me moria 25 MG Oral 8-21 tab, PO, l Tablet 15:45: Bedtime, # [place] [Topamax] 00 30 tab, 2 Refill(s), Pharmacy: [facility] #[id number] topiramate 2019 Yes 25 mg = 1 Me moria 25 MG Oral 8-21 tab, PO, l Tablet 15:45: Bedtime, # [place] [Topamax] 00 30 tab, 2 Refill(s), Pharmacy: [facility] #[id number] topiramate 2019-0 Yes 25 mg = 1 Me moria 25 MG Oral 8-21 tab, PO, l Tablet 15:45: Bedtime, # [place] [Topamax] 00 30 tab, 2 Refill(s), [id number] topiramate 2019-0 Yes 25 mg = 1 Me moria 25 MG Oral 8-21 tab, PO, l Tablet 15:45: Bedtime, # [place] [Topamax] 00 30 tab, 2 Refill(s), Pharmacy: [facility] #[id number] atorvastati 2019-0 Yes PO, Daily, Memoria n [...] 8- Q8H, 0 l 15:00: Refill(s) oxyCODONE 20190 [...] 8 Daily, 0 l 15:00: Refill(s) Ondansetron 20190 Yes 4 mg = 1 Me moria 4 MG Oral 07-18 tab, PO, l Tablet 15:00: Q8H, 0 [Zofran] Refill(s) Hydroxyzine 0 Yes 25 mg = 1 M emoria 8 tab, PO, l 15:00: Q6H, PRN rash / allergy symptoms, 0 Refill(s) Fluoxetine 0 Yes 60 mg, PO, M emoria 8 Daily, 0 l 15:00: Refill(s) gabapentin 2018-0 Yes 600 mg, Rao caity 8-21 PO, TID, 0 l 15:00: Refill(s) Ambien 0 Yes 5 mg, PO, Memori a 07-18 Bedtime, 0 l 15:00: Refill(s) lidocaine 2018-0 Yes See Memoria 07-18 Instructio l 15:00: ns, 5 % Transderma l q12, 0 Refill(s) Protonix 2019-0 Yes 40 mg, PO, Mem oria 8-21 Daily, 0 l 15:00: Refill(s) Zofran 4 mg 2019-0 Yes 4 mg = 1 Me moria oral tablet 8-21 tab, PO, l 15:00: Q8H, 0 Refill(s) hydrOXYzine 2019-0 Yes 25 mg = 1 M emoria 8-21 tab, PO, l 15:00: Q6H, PRN rash / allergy symptoms, 0 Refill(s) FLUoxetine 20190 Yes 60 mg, PO, M emoria 821 Daily, 0 l 15:00: Refill(s) Zanaflex 20190 Yes 4 mg, PO, Rao caity 821 Q8H, 0 l 15:00: Refill(s) oxyCODONE 0 [...] = 1 Me moria 4 MG Oral -21 tab, PO, l Tablet 15:00: Q8H, 0 [Zofran] Refill(s) Hydroxyzine 20190 Yes 25 mg = 1 M emoria 8-21 tab, PO, l 15:00: Q6H, PRN rash / allergy symptoms, 0 Refill(s) Fluoxetine 20190 Yes 60 mg, PO, M emoria 8-21 Daily, 0 l 15:00: Refill(s) gabapentin 2019-0 Yes 600 mg, Rao caity 8-21 PO, TID, 0 l 15:00: Refill(s) Ambien 2019 Yes 5 mg, PO, Memori a 8 Bedtime, 0 l 15:00: Refill(s) lidocaine 2018- Yes See Memoria 07-18 Instructio l 15:00: ns, 5 % Transderma l q12, 0 Refill(s) Protonix 2019-0 Yes 40 mg, PO, Mem oria 8- Daily, 0 l 15:00: Refill(s) Zofran 4 [...] Q6H, 0 [place] Refill(s) release gabapentin Yes 600 mg, Rao caity 8- PO, TID, 0 l 15:00: Refill(s) Ambien Yes 5 mg, PO, Memori a 07-18 Bedtime, 0 l 15:00: Refill(s) Lidocaine 2018- Yes See Memoria 07-18 Instructio l 15:00: ns, 5 % Transderma l q12, 0 Refill(s) Protonix 2019-0 Yes 40 mg, PO, Mem oria 8- Daily, 0 l 15:00: Refill(s) Ondansetron Yes 4 mg = 1 Me moria 4 MG Oral 8-21 tab, PO, l Tablet 15:00: Q8H, 0 [place] [Zofran] 00 Refill(s) Hydroxyzine 2019 Yes 25 mg = 1 M emoria 8 tab, PO, l 15:00: Q6H, PRN rash / allergy symptoms, 0 Refill(s) Fluoxetine 2019-0 Yes 60 mg, PO, M emoria 8- Daily, 0 l 15:00: Refill(s) gabapentin 2019-0 Yes 600 mg, Rao caity 8- PO, TID, 0 l 15:00: Refill(s) Ambien 0 Yes 5 mg, PO, Memori a 07-18 Bedtime, 0 l 15:00: Refill(s) lidocaine 2018-0 Yes See Memoria 07-18 Instructio l 15:00: ns, 5 % Transderma l q12, 0 Refill(s) Protonix 0 Yes 40 mg, PO, Mem oria 8 Daily, 0 l 15:00: Refill(s) Zanaflex 0 Yes 4 mg, PO, Rao caity 07-18 Q8H, 0 l 15:00: Refill(s) Zofran 4 mg 20190 Yes 4 mg = 1 Me moria oral tablet 07-18 tab, PO, l 15:00: Q8H, 0 Refill(s) oxyCODONE 0 Yes 10 mg = 1 Mem oria 10 mg oral 07-18 tab, PO, l tablet, 15:00: Q6H, 0 Refill(s) release hydrOXYzine 20190 Yes 25 mg = 1 M emoria 8 tab, PO, l 15:00: Q6H, PRN rash / allergy symptoms, 0 Refill(s) gabapentin 20190 Yes 600 mg, Rao caity 8- PO, TID, 0 l 15:00: Refill(s) FLUoxetine 2019-0 Yes 60 mg, PO, M emoria 8 Daily, 0 l 15:00: Refill(s) Ambien 0 Yes [...] 15:00: Q8H, 0 [Zofran] 00 Refill(s) Hydroxyzine 20190 Yes 25 mg = 1 M emoria 07-18 tab, PO, l 15:00: Q6H, PRN rash / allergy symptoms, 0 Refill(s) Fluoxetine 20190 Yes 60 mg, PO, M emoria 07-18 Daily, 0 l 15:00: Refill(s) gabapentin 2019 Yes 600 mg, Rao caity 07-18 PO, TID, 0 l 15:00: Refill(s) Ambien 20190 Yes 5 mg, PO, Memori a 07-18 Bedtime, 0 l 15:00: Refill(s) lidocaine 2019-0 Yes See Memoria 07-18 Instructio l 15:00: ns, 5 % Transderma l q12, 0 Refill(s) Protonix 2019-0 Yes 40 mg, PO, Mem oria 07-18 Daily, 0 l 15:00: Refill(s) Zofran 4 mg 20190 Yes 4 mg = 1 Me moria oral tablet 07-18 tab, PO, l 15:00: Q8H, 0 Refill(s) hydrOXYzine 2019 Yes 25 mg = 1 M emoria 07-18 tab, PO, l 15:00: Q6H, PRN rash / allergy symptoms, 0 Refill(s) FLUoxetine 20190 Yes 60 mg, PO, M emoria 8 Daily, 0 l 15:00: Refill(s) Zanaflex 20190 Yes 4 mg, PO, Rao caity 07-18 Q8H, 0 l 15:00: Refill(s) oxyCODONE 2019-0 Yes 10 mg = 1 Mem oria 10 mg oral 8-21 tab, PO, l tablet, 15:00: Q6H, 0 Refill(s) release gabapentin 2019-0 Yes 600 mg, Rao caity 8-21 PO, TID, 0 l 15:00: Refill(s) Ambien 20190 Yes 5 mg, PO, Memori a 8 Bedtime, 0 l 15:00: Refill(s) Lidocaine 2018-0 Yes See Memoria 07-18 Instructio l 15:00: ns, 5 % Transderma l q12, 0 Refill(s) Protonix 20190 Yes 40 mg, PO, Mem oria 8- Daily, 0 l 15:00: Refill(s) Ondansetron Yes 4 mg = 1 Me moria 4 MG Oral 07-18 tab, PO, l Tablet 15:00: Q8H, 0 [Zofran] Refill(s) Hydroxyzine Yes 25 mg = 1 M emoria 07-18 tab, PO, l 15:00: Q6H, PRN rash / allergy symptoms, 0 Refill(s) Fluoxetine 0 Yes 60 mg, PO, M emoria 8 Daily, 0 l 15:00: Refill(s) gabapentin 0 Yes 600 mg, Rao caity 8-21 PO, TID, 0 l 15:00: Refill(s) Ambien 0 Yes 5 mg, PO, Memori a 07-18 Bedtime, 0 l 15:00: Refill(s) lidocaine 2018-0 Yes See Memoria 07-18 Instructio l 15:00: ns, 5 % Transderma l q12, 0 Refill(s) Protonix 2019-0 Yes 40 mg, PO, Mem oria 8-21 Daily, 0 l 15:00: Refill(s) Zofran 4 mg 2019-0 Yes 4 mg = 1 Me moria oral tablet 8- tab, PO, l 15:00: Q8H, 0 Refill(s) hydrOXYzine 0 Yes 25 mg = 1 M emoria 07-18 tab, PO, l 15:00: Q6H, PRN rash / allergy symptoms, 0 Refill(s) FLUoxetine 2018-0 Yes 60 mg, PO, M emoria 8-21 [...] 00 (two) l times a day. pantoprazol 2017-0 Yes 1{tbl} QD Take 1 [...] Immunizations Ordered Filled Immunization Date Status Comments [facility] e Immunization Name Name [id number]-minh 2021-04-06 Completed Memor ial [place] RNA-1273vaxMODERNA< 00:00:00 sup>1</sup> [id number]-minh 2021-04-06 Completed [facility] ial [place] RNA-1273vaxMODERNA< 00:00:00 sup>1</sup> [id number]-minh 2021-04-06 Completed Memor ial [place] RNA-1273vaxMODERNA< 00:00:00 sup>1</sup> [id number]-minh 2021-04-06 Completed Memor ial [place] RNA-1273vaxMODERNA< 00:00:00 sup>1</sup> [id number]-minh 2021-04-06 Completed Memor ial [place] RNA-1273vaxMODERNA< 00:00:00 sup>1</sup> SARS-COV-2 COVID-19 2021-04-06 Completed Unive rsity of MODERNA VACCINE 00:00:00 [facility] SARS-COV-2 COVID-19 2021-04-06 Completed Unive rsity of MODERNA VACCINE 00:00:00 [facility] SARS-COV-2 COVID-19 2021-04-06 Completed Unive rsity of MODERNA VACCINE 00:00:00 [facility] ical Branch SARS-COV-2 COVID-19 2021-04-06 Completed Unive rsity of MODERNA 12+ YRS 00:00:[address] [facility] SARS-COV-2 COVID-19 2021-04-06 Completed Unive rsity of MODERNA VACCINE 00:00:00 [facility] SARS-COV-2 COVID-19 2021-04-06 Completed Unive rsity of MODERNA VACCINE 00:00:00 [place] [facility] SARS-COV-2 COVID-19 2021-04-06 Completed Unive rsity of MODERNA VACCINE 00:00:00 [facility] ical Branch SARS-COV-2 COVID-19 2021-03-12 Completed Unive rsity of MODERNA VACCINE 00:00:00 [place] [facility] ical Branch SARS-COV-2 COVID-19 2021-03-12 Completed Unive rsity of MODERNA VACCINE 00:00:00 [facility] ical Branch SARS-COV-2 COVID-19 2021-03-12 Completed Unive rsity of MODERNA VACCINE 00:00:00 [facility] ical Branch SARS-COV-2 COVID-19 2021-03-12 Completed Unive rsity of MODERNA VACCINE 00:00:00 [facility] ical Branch SARS-COV-2 COVID-19 2021-03-12 Completed Unive rsity of MODERNA 12+ YRS 00:00:00 [facility] ical [facility] SARS-COV-2 COVID-19 2021-03-12 Completed Unive rsity of MODERNA VACCINE 00:00:00 [facility] ical Branch SARS-COV-2 COVID-19 2021-03-12 Completed Unive rsity of MODERNA VACCINE 00:00:00 [facility] Influenza Virus 2020-11-28 Completed Universit y of Vaccine (3+ yrs) 00:00:00 [facility] 2020-11-28 Completed Universit y of Vaccine (3+ yrs) 00:00:00 [facility] Influenza Virus 2020-11-28 Completed Universit y of Vaccine (3+ yrs) 00:00:00 [facility] Branch Influenza Virus 2020-11-28 Completed Universit y of Vaccine (3+ yrs) 00:00:00 [facility] Branch Influenza Virus 2020-11-28 Completed Universit y of Vaccine (3+ yrs) 00:00:00 [facility] Influenza Virus 2020-11-28 Completed Universit y of Vaccine (3+ yrs) 00:00:00 [facility] Influenza Virus 2020-11-28 Completed Universit y of Vaccine (3+ yrs) 00:00:00 [facility] FLUCELVAX QUAD PF 2017-10-[address] 00:00:00 Hospital Pneumococcal 2017-10-06 Completed [employer] Conjugate 13-Valent 00:00:00 Hospi iqra Influenza Virus 2017-10-06 Completed Universit y of Vaccine Quad IM, 00:00:00 [place] [facility] Preserv and ABX Branch Free 2-64 YRS Pneumococcal 13 2017-10-06 Completed Universit y of Conjugate, PCV13 00:00:00 [place] [facility] (Prevnar 13) Branch Influenza Virus 2017-10-06 Completed Universit y of Vaccine Quad IM, 00:00:00 [place] [facility] Preserv and ABX Branch Free 2-64 [...] Me dical Preserv and ABX Branch Free 2-64 YRS Pneumococcal 13 2017-10-06 Completed Universit y of Conjugate, PCV13 00:00:00 [place] [facility] (Prevnar 13) Branch Influenza Virus 2017-10-06 Completed Universit y of Vaccine Quad IM, 00:00:00 [place] [facility] Preserv and ABX Branch Free 2-64 YRS Pneumococcal 13 2017-10-06 Completed Universit y of Conjugate, PCV13 00:00:00 [place] [facility] (Prevnar 13) Branch Influenza Virus 2017-10-06 Completed Universit y of Vaccine Quad IM, 00:00:00 [place] [facility] Preserv and ABX Branch Free 2-64 YRS Pneumococcal 13 2017-10-06 Completed Universit y of Conjugate, PCV13 00:00:00 [facility] dical (Prevnar 13) Branch FLUCELVAX QUAD PF 2017-10-[address] 00:00:00 Hospital Pneumococcal 2017-10-06 Completed [employer] Conjugate 13-Valent 00:00:00 Hospi iqra FLUCELVAX QUAD PF 2017-10-[address] 00:00:00 Hospital Pneumococcal 2017-10-06 Completed [employer] Conjug[employer] 13-Valent 00:00:00 Hospi iqra FLUCELVAX QUAD PF 2017-10-[address] 00:00:00 Hospital Pneumococcal 2017-10-06 Completed [employer] Conjug[employer] 13-Valent 00:00:00 Hospi iqra FLUCELVAX QUAD PF 2017-10-[address] 00:00:00 Hospital Pneumococcal 2017-10-06 Completed [employer] Conjug[employer] 13-Valent 00:00:00 Hospi iqra Vital Signs Vital Name Observation Time Observation Value Comments Source Systolic blood 2021-08-14 15:39:00 130 mm[Hg] Univer sity of pressure [facility] Diastolic blood 2021-08-14 15:39:00 81 mm[facility]Hg[facility] Heart rate 2021-08-14 15:39:00 76 /min [facility] Body temperature 2021-08-14 15:39:00 37 Amy [facility] Respiratory rate 2021-08-14 15:39:00 18 /min [facility] Body height 2021-08-14 15:39:00 162.6 cm [facility] Body weight 2021-08-14 15:39:00 53.933 kg [facility] BMI 2021-08-14 15:39:00 20.41 kg/m2 [facility] Oxygen saturation in 2021-08-14 15:39:00 100 /min [facility] Arterial blood by [facility] Pulse oximetry Branch Systolic (mm Hg) 2022-09-07 19:49:00 Rao Gay Diastolic (mm Hg) 2022-09-07 19:49:00 [facility] [place] Heart Rate 2022-09-07 19:49:00 [facility] 2022-09-07 19:49:00 5 [ft_i] [facility] [place] Weight 2022-09-07 19:49:00 [facility] [place] BMI Calculated 2022-09-07 19:49:00 Memori [facility] [place] Systolic (mm Hg) 2022-01-06 15:19:00 Rao rial [place] Diastolic (mm Hg) 2022-01-06 15:19:00 Mem orial [place] Heart Rate 2022-01-06 15:19:00 [facility] [place] Respitory Rate 2022-01-06 15:19:00 Memori al [place] Height 2022-01-06 15:19:00 160.02 cm [facility] [place] Weight 2022-01-06 15:19:00 [facility] [place] BMI Calculated 2022-01-06 15:19:00 Mem[facility] [place] Systolic blood 2021-12-16 15:00:00 138 mm[Hg] [facility] pressure Diastolic blood 2021-12-16 15:00:00 82 mm[Hg] [facility] pressure Systolic (mm Hg) 2021-12-10 22:22:00 Rao rial [place] Diastolic (mm Hg) 2021-12-10 22:22:00 Mem orial [place] Heart Rate 2021-12-10 22:22:00 [facility] [place] Respitory Rate 2021-12-10 22:22:00 [facility] [place] Height 2021-12-10 22:22:00 160.02 cm [facility] [place] Weight 2021-12-10 22:22:00 [facility] [place] BMI Calculated 2021-12-10 22:22:00 Memori al [place] Systolic (mm Hg) 2021-11-19 19:00:00 Rao rial [place] Diastolic (mm Hg) 2021-11-19 19:00:00 Mem orial [place] Heart Rate 2021-11-19 19:00:00 [facility] [place] [place] Respitory Rate 2021-11-19 19:00:00 Mem[facility] al [place] Height 2021-11-19 19:00:00 160.02 cm [facility] [place] Weight 2021-11-19 19:00:00 [facility] [place] BMI Calculated 2021-11-19 19:00:00 [facility] [place] Heart rate 2021-11-18 16:04:00 80 /min [facility] Systolic (mm Hg) 2021-04-08 14:16:00 Rao rial [place] Diastolic (mm Hg) 2021-04-08 14:16:00 Mem orial [place] Heart Rate 2021-04-08 14:16:00 [facility] [place] Respitory Rate 2021-04-08 14:16:00 Memori [facility] [place] Height 2021-04-08 14:16:00 162.56 cm [facility] [place] Weight 2021-04-08 14:16:00 [facility] [place] BMI Calculated 2021-04-08 14:16:00 [facility] [place] Systolic (mm Hg) 2020-12-22 20:47:00 Rao rial [place] Diastolic (mm Hg) 2020-12-22 20:47:00 Mem orial [place] Height 2020-12-22 20:47:00 162.56 cm [facility] [place] Weight 2020-12-22 20:47:00 [facility] [place] BMI Calculated 2020-12-22 20:47:00 [facility] [place] Systolic (mm Hg) 2020-07-31 18:42:00 Rao rial [place] Diastolic (mm Hg) 2020-07-31 18:42:00 Mem orial [place] Heart Rate 2020-07-31 18:42:00 [facility] [place] Respitory Rate 2020-07-31 18:42:00 Memori [facility] [place] Height 2020-07-31 18:42:00 162.56 cm [facility] Weight 2020-07-31 18:42:00 [facility] BMI Calculated 2020-07-31 18:42:00 [facility] [place] Temperature Oral (F) 2020-07-31 18:42:00 96.9 F [facility] Systolic (mm Hg) 2020-01-22 17:49:00 [facility] [place] Diastolic (mm Hg) 2020-01-22 17:49:00 [facility] [place] Heart Rate 2020-01-22 17:49:00 [facility] Respitory Rate 2020-01-22 17:49:00 [facility] Height 2020-01-22 17:49:00 162.56 cm [facility] Weight 2020-01-22 17:49:00 [facility] BMI Calculated 2020-01-22 17:49:00 [facility] Systolic (mm Hg) 2020-01-11 21:53:00 [facility] Diastolic (mm Hg) 2020-01-11 21:53:00 [facility] Heart Rate 2020-01-11 21:53:00 [facility] Height 2020-01-11 21:53:00 162.56 cm [facility] Weight 2020-01-11 21:53:00 [facility] BMI Calculated 2020-01-11 21:53:00 [facility] Systolic (mm Hg) 2019-12-06 22:16:00 [facility] Diastolic (mm Hg) 2019-12-06 22:16:00 [facility] [place] Heart Rate 2019-12-06 22:16:00 [facility] Respitory Rate 2019-12-06 22:16:00 [facility] [place] Height 2019-12-06 22:16:00 162.56 cm [facility] Weight 2019-12-06 22:16:00 [facility] BMI Calculated 2019-12-06 22:16:00 [facility] BMI Calculated 2019-11-09 17:41:00 [facility] Height 2019-11-09 17:41:00 162.56 cm [facility] Weight 2019-11-09 17:41:00 [facility] Systolic (mm Hg) 2019-09-19 18:12:00 [facility] Diastolic (mm Hg) 2019-09-19 18:12:00 [facility] [place] Heart Rate 2019-09-19 18:12:00 [facility] Respitory Rate 2019-09-19 18:12:00 [facility] [place] Height 2019-09-19 18:12:00 162.56 cm [facility] Weight 2019-09-19 18:12:00 [facility] BMI Calculated 2019-09-19 18:12:00 [facility] Systolic (mm Hg) 2019-08-23 19:05:00 Rao rial [place] Diastolic (mm Hg) 2019-08-23 19:05:00 [facility] Heart Rate 2019-08-23 19:05:00 [facility] Respitory Rate 2019-08-23 19:05:00 [facility] [place] Height 2019-08-23 19:05:00 162.56 cm [facility] Weight 2019-08-23 19:05:00 [facility] BMI Calculated 2019-08-23 19:05:00 [facility] Systolic (mm Hg) 2019-07-18 14:57:00 Rao Gay Diastolic (mm Hg) 2019-07-18 14:57:00 Olimpia Gay Heart Rate 2019-07-18 14:57:00 Yuliana Gay Respitory Rate 2019-07-18 14:57:00 May [place] Height 2019-07-18 14:57:00 162.56 cm Yuliana Rashidann Weight 2019-07-18 14:57:00 [facility] [place] BMI Calculated 2019-07-18 14:57:00 May carly [place] Procedures Procedure Date / Time Performing Clinician Source Performed [facility] of 2022-07-21 21:48:00 [facility]); muscle(s) innervated by facial, trigeminal, cervical spinal and accessory nerves, bilateral (eg, for chronic migraine) EXTERNAL PROVIDER RECORDS 2022-03-08 05:01:00 Doctor Unassigned, [facility] EXTERNAL MAMMOGRAM 2021-08-31 13:00:00 Doctor Unassigned, [facility] Arthroplasty [facility] Laminectomy [facility] Plan of Care Planned Activity Planned Date Details Comments Source Future Scheduled 2024-10-[address] [facility] 00:00:00 (procedure) [code = [facility] 95834701] Future Scheduled 2024-10-[address] [facility] Test 00:00:00 (procedure) [code = [facility] 40773520] Future Scheduled 2024-10-[address] [facility] Test 00:00:00 (procedure) [code = [facility] 80846504] Future Scheduled 2024-10-[address] [facility] Test 00:00:00 (procedure) [code = [facility] 73776038] Future Scheduled 2022-10-02 HEPATITIS B VACCINES Met [facility] Test 08:41:32 (1 of 3 - 3-dose series) [code = HEPATITIS B VACCINES (1 of 3 - 3-dose series)] Future Scheduled 2022-10-02 Hepatitis C screening [facility] Test 08:41:32 (procedure) [code = 075018583] Future Scheduled 2022-10-02 Screening for [facility] Test 08:41:32 malignant neoplasm of cervix (procedure) [code = 550764091] Future Scheduled 2022-10-02 BREAST CANCER [facility] Test 08:41:32 SCREENING [code = BREAST CANCER SCREENING] Future Scheduled 2022-10-02 COLONOSCOPY SCREENING [facility] Test 08:41:32 [code = COLONOSCOPY SCREENING] Future Scheduled 2022-10-02 SHINGLES VACCINES (1 Met [facility] Test 08:41:32 of 2) [code = SHINGLES VACCINES (1 of 2)] Future Scheduled 2022-10-02 Pneumococcal Vaccine: [facility] Test 08:41:32 Pediatrics (0 to 5 Years) and At-Risk Patients (6 to 64 Years) (2 - PPSV23 if available, else PCV20) [code = Pneumococcal Vaccine: Pediatrics (0 to 5 Years) and At-Risk Patients (6 to 64 Years) (2 - PPSV23 if available, else PCV20)] Future Scheduled 2022-10-02 COVID-19 VACCINE (3 - [facility] Test 08:41:32 Booster for Moderna series) [code = COVID-19 VACCINE (3 - Booster for Moderna series)] Future Scheduled 2022-10-02 INFLUENZA VACCINE Method [facility] Test 08:41:32 [code = INFLUENZA VACCINE] Future Scheduled 2022-10-02 HEPATITIS B VACCINES Met [facility] Test 08:41:32 (1 of 3 - 3-dose series) [code = HEPATITIS B VACCINES (1 of 3 - 3-dose series)] Future Scheduled 2022-10-02 Hepatitis C screening [facility] Test 08:41:32 (procedure) [code = 830491065] Future Scheduled 2022-10-02 Screening for [facility] Test 08:41:32 malignant neoplasm of cervix (procedure) [code = 731233095] Future Scheduled 2022-10-02 BREAST CANCER [facility] Test 08:41:32 SCREENING [code = BREAST CANCER SCREENING] Future Scheduled 2022-10-02 COLONOSCOPY SCREENING [facility] Test 08:41:32 [code = COLONOSCOPY SCREENING] Future Scheduled 2022-10-02 SHINGLES VACCINES (1 Met [facility] Test 08:41:32 of 2) [code = SHINGLES VACCINES (1 of 2)] Future Scheduled 2022-10-02 Pneumococcal Vaccine: [facility] Test 08:41:32 Pediatrics (0 to 5 Years) and At-Risk Patients (6 to 64 Years) (2 - PPSV23 if available, else PCV20) [code = Pneumococcal Vaccine: Pediatrics (0 to 5 Years) and At-Risk Patients (6 to 64 Years) (2 - PPSV23 if available, else PCV20)] Future Scheduled 2022-10-02 COVID-19 VACCINE (3 - [facility] Test 08:41:32 Booster for Moderna series) [code = COVID-19 VACCINE (3 - Booster for Moderna series)] Future Scheduled 2022-10-02 INFLUENZA VACCINE [facility] Test 08:41:32 [code = INFLUENZA VACCINE] Future Scheduled 2022-09-11 HEPATITIS B VACCINES Met [facility] Test 06:10:07 (1 of 3 - 3-dose series) [code = HEPATITIS B VACCINES (1 of 3 - 3-dose series)] Future Scheduled 2022-09-11 Hepatitis C screening [facility] Test 06:10:07 (procedure) [code = 019356850] Future Scheduled 2022-09-11 Screening for [facility] Test 06:10:07 malignant neoplasm of cervix (procedure) [code = 449922734] Future Scheduled 2022-09-11 BREAST CANCER [facility] Test 06:10:07 SCREENING [code = BREAST CANCER SCREENING] Future Scheduled 2022-09-11 COLONOSCOPY SCREENING [facility] Test 06:10:07 [code = COLONOSCOPY SCREENING] Future Scheduled 2022-09-11 SHINGLES VACCINES (1 Met [facility] Test 06:10:07 of 2) [code = SHINGLES VACCINES (1 of 2)] Future Scheduled 2022-09-11 Pneumococcal Vaccine: [facility] Test 06:10:07 Pediatrics (0 to 5 Years) and At-Risk Patients (6 to 64 Years) (2 - PPSV23 if available, else PCV20) [code = Pneumococcal Vaccine: Pediatrics (0 to 5 Years) and At-Risk Patients (6 to 64 Years) (2 - PPSV23 if available, else PCV20)] Future Scheduled 2022-09-11 COVID-19 VACCINE (3 - [facility] Test 06:10:07 Booster for Moderna series) [code = COVID-19 VACCINE (3 - Booster for Moderna series)] Future Scheduled 2022-09-11 INFLUENZA VACCINE Method [facility] Test 06:10:07 [code = INFLUENZA VACCINE] Future Scheduled 2022-09-06 HEPATITIS B VACCINES Met [facility] Test 14:11:02 (1 of 3 - 3-dose series) [code = HEPATITIS B VACCINES (1 of 3 - 3-dose series)] Future Scheduled 2022-09-06 Hepatitis C screening [facility] Test 14:11:02 (procedure) [code = 048570573] Future Scheduled 2022-09-06 Screening for [facility] Test 14:11:02 malignant neoplasm of cervix (procedure) [code = 372436181] Future Scheduled 2022-09-06 BREAST CANCER [facility] Test 14:11:02 SCREENING [code = BREAST CANCER SCREENING] Future Scheduled 2022-09-06 COLONOSCOPY SCREENING [facility] Test 14:11:02 [code = COLONOSCOPY SCREENING] Future Scheduled 2022-09-06 SHINGLES VACCINES (1 Met [facility] Test 14:11:02 of 2) [code = SHINGLES VACCINES (1 of 2)] Future Scheduled 2022-09-06 Pneumococcal Vaccine: [facility] Test 14:11:02 Pediatrics (0 to 5 Years) and At-Risk Patients (6 to 64 Years) (2 - PPSV23 or PCV20) [code = Pneumococcal Vaccine: Pediatrics (0 to 5 Years) and At-Risk Patients (6 to 64 Years) (2 - PPSV23 or PCV20)] Future Scheduled 2022-09-06 COVID-19 VACCINE (3 - [facility] Test 14:11:02 Booster for Moderna series) [code = COVID-19 VACCINE (3 - Booster for Moderna series)] Future Scheduled 2022-09-06 INFLUENZA VACCINE [facility] Test 14:11:02 [code = INFLUENZA VACCINE] Future Scheduled 2022-09-06 HEPATITIS B VACCINES Met [facility] Test 14:11:02 (1 of 3 - 3-dose series) [code = HEPATITIS B VACCINES (1 of 3 - 3-dose series)] Future Scheduled 2022-09-06 Hepatitis C screening [facility] Test 14:11:02 (procedure) [code = 481164237] Future Scheduled 2022-09-06 Screening for [facility] Test 14:11:02 malignant neoplasm of cervix (procedure) [code = 233902168] Future Scheduled 2022-09-06 BREAST CANCER [facility] Test 14:11:02 SCREENING [code = BREAST CANCER SCREENING] Future Scheduled 2022-09-06 COLONOSCOPY SCREENING [facility] Test 14:11:02 [code = COLONOSCOPY SCREENING] Future Scheduled 2022-09-06 SHINGLES VACCINES (1 Met [facility] Test 14:11:02 of 2) [code = SHINGLES VACCINES (1 of 2)] Future Scheduled 2022-09-06 Pneumococcal Vaccine: [facility] Test 14:11:02 Pediatrics (0 to 5 Years) and At-Risk Patients (6 to 64 Years) (2 - PPSV23 or PCV20) [code = Pneumococcal Vaccine: Pediatrics (0 to 5 Years) and At-Risk Patients (6 to 64 Years) (2 - PPSV23 or PCV20)] Future Scheduled 2022-09-06 COVID-19 VACCINE (3 - [facility] Test 14:11:02 Booster for Moderna series) [code = COVID-19 VACCINE (3 - Booster for Moderna series)] Future Scheduled 2022-09-06 INFLUENZA VACCINE [facility] Test 14:11:02 [code = [...] [facility] cervix (procedure) [code = 769142606] Future Scheduled [address] [facility] 00[facility]00 malignant ne[facility] of [facility] cervix (procedure) [code = 206275565] Future Scheduled [address] [facility] Test 00:00:00 malignant neoplasm of [facility] cervix (procedure) [code = 378866107] Future Scheduled [address] [facility] Test 00:00:00 malignant neoplasm of [facility] cervix (procedure) [code = 752700089] Future Scheduled 1983 DTAP/TDAP/TD VACCINES [facility] [...] [facility] Test 00:00:00 malignant neoplasm of [facility] breast (procedure) [code = 804580101] Future Scheduled [address] [facility] Test 00:00:00 (combo) [code = CT Medical C enter Colonography (combo)] Future Scheduled [address] [facility] Test 00:00:00 malignant neoplasm of [facility] colon (procedure) [code = 388911639] Future Scheduled [address] [facility] Test 00:00:00 malignant neoplasm [facility] colon (procedure) [code = 288149967] Future Scheduled [address] [facility] Test 00:00:00 malignant neoplasm of [facility] colon (procedure) [code = 833147080] Future Scheduled [address] [facility] Test 00:00:00 malignant neoplasm of [facility] colon (procedure) [code = 794041777] Future Scheduled 1964 Sigmoidoscopy [facility]] Medical Lissa r Future Scheduled [address] [facility] Test 00:00:00 malignant neoplasm of [facility] breast (procedure) [code = 174923000] Future Scheduled [address] [facility] 00:00:00 (combo) [code = CT Medical C enter Colonography (combo)] Future Scheduled [address] [facility] Test 00:00:00 malignant neoplasm [facility] colon (procedure) [code = 403897567] Future Scheduled [address] [facility] Test 00:00:00 malignant ne[facility] colon (procedure) [code = 313456723] Future Scheduled [address] [facility] Test 00:00:00 malignant neoplasm of [facility] colon (procedure) [code = 264746952] Future Scheduled [address] [facility] Test 00:00:00 malignant neoplasm of [facility] colon (procedure) [code = 600157194] Future Scheduled 1964 [facility]] [facility] Cent[facility] r Future Scheduled [address] [facility] 00:00:00 malignant neoplasm of [facility] breast (procedure) [code = 855100166] Future Scheduled [address] [facility] 00:00:00 (combo) [code = CT Medical C enter Colonography (combo)] Future Scheduled [address] [facility] Test 00:00:00 malignant neoplasm of [facility] colon (procedure) [code = 520946071] Future Scheduled [address] [facility] Test 00:00:00 malignant neoplasm of [facility] colon (procedure) [code = 112079187] Future Scheduled [address] [facility] Test 00:00:00 malignant neoplasm of [facility] colon (procedure) [code = 929724504] Future Scheduled [address] [facility] Test 00:00:00 malignant neoplasm of [facility] colon (procedure) [code = 586319523] Future Scheduled 1964 [facility] Future Scheduled [address] [facility] Test 00:00:00 malignant neoplasm of [facility] breast (procedure) [code = 748319456] Future Scheduled [address] [facility] 00:00:00 (combo) [code = CT Medical C enter Colonography (combo)] Future Scheduled [address] [facility] Test 00:00:00 malignant neoplasm of [facility] colon (procedure) [code = 011035325] Future Scheduled [address] [facility] Test 00:00:00 malignant neoplasm of [facility] colon (procedure) [code = 481067061] Future Scheduled [address] [facility] Test 00:00:00 malignant neoplasm of [facility] colon (procedure) [code = 877301263] Future Scheduled [address] [facility] Test 00:00:00 malignant neoplasm of [facility] colon (procedure) [code = 801369143] Future Scheduled 1964 [facility]] Medical Cente r Encounters Start End Encounter Admission Attending Care Care Encounter Source Date/Time Date/Time Type Type Clinicians Facility Department ID 2021-06-08 Inpatient EL Eulogio, HCACL DAYS [id number] [facility] 10:30:00 [place] [id number] [facility] 2021-06-05 Inpatient EL Eulogio, HCACL DAYS [id number] [facility] 11:30:00 [place] [id number] [facility] 2021-05-19 Inpatient Eulogio, HCACL DAYS [id number] [facility] 07:30:00 [place] [id number] [facility] 2021-05-15 Inpatient EL Eulogio, HCACL DAYS [id number] [facility] 14:00:00 [place] [id number] [facility] 2022-11-15 2022-11-15 Outpatient MHIE MHIE [id number] Memoria 13:00:00 13:00:00 24 l [place] 2022-11-15 2022-11-15 Outpatient MHIE MHIE [id number] Memoria 13:00:00 13:00:00 24 l [place] 2022-11-15 2022-11-15 Outpatient MHIE MHIE [id number] Memoria 13:00:00 13:00:00 24 l [place] 2022-10-29 2022-10-29 Outpatient [facility]ONY OLGUIN [facility] [id number] Univers 13:30:00 13:30:[address] [facility] 2022-09-28 2022-09-28 Ambulatory nullFlavo MNA [id number] Memoria 16:00:00 16:00:00 [facility]22-[facility]-28 Ambulatory nullFlavo MNA [id number] Memoria 16:00:00 16:00:00 Pre-Reg r Neurology 26 l Elvin [place] 2022-09-28 2022-09-28 Ambulatory nullFlavo MNA [id number] Memoria 16:00:00 16:00:00 Pre-Reg r Neurology 26 l Elvin [place] 2022-09-28 2022-09-28 [id number] 11:00:00 11:00:00 Ab 26 Abran 2022-09-28 2022-09-28 Outpatient KEITH OrtegaSCHER MHMISCHER [id number] 11:00:00 11:00:00 Ab 26 Abran 2022-09-13 2022-09-13 Outpatient MHIE MHIE [id number] Memoria 13:00:00 13:00:00 26 baldemar Gay 2022-09-13 2022-09-13 Outpatient MHIE MHIE [id number] Memoria 13:00:00 13:00:00 26 l [place] 2022-09-07 2022-09-08 Outpatient nullFlavo MNA [id number] Memoria 19:45:00 04:59:59 r Neurology 25 l Elvin Gay 2022-09-07 2022-09-08 Outpatient nullFlavo MNA [id number] Memoria 19:45:00 04:59:59 r Neurology 25 l Elvin Gay 2022-09-07 2022-09-08 Outpatient nullFlavo MNA [id number] Memoria 19:45:00 04:59:59 r Neurology 25 l Elvin Gay 2022-09-07 2022-09-07 Outpatient KEITH OrtegaSCHER MHMISCHER [id number] 14:45:00 23:59:59 Ab 25 Abran 2022-09-07 2022-09-07 Outpatient KEITH OrtegaSCHER MHMISCHER [id number] 14:45:00 23:59:59 Ab 25 Abran 2022-09-07 2022-09-07 Outpatient MHIE MHIE [id number] Memoria 14:45:00 14:45:00 25 baldemar Gay 2022-09-07 2022-09-07 Outpatient MHIE MHIE [id number] Memoria 14:45:00 14:45:00 25 baldemar Gay 2022-08-20 2022-08-20 Outpatient TONY OLGUIN [facility] [id number] Univers 10:30:00 10:30:[address] [facility] 2022-08-13 2022-08-13 Pre Visit DASH Anderson [id number] Univers 00:00:00 00:00:00 Outreach Lissy ACOSTA 350.1.13.10 i ty of BRIJESH 4.2.7.2.686 Kasi arcos [id number] [address] 2022-07-21 2022-07-22 Outpatient nullFlavo MNA [id number] Memoria 21:00:00 04:59:59 r Neurology 23 l Cabell [place] 2022-07-21 2022-07-22 Outpatient nullFlavo MNA [id number] Memoria 21:00:00 04:59:59 r Neurology 23 l Elvin [place] 2022-07-21 2022-07-22 Outpatient nullFlavo MNA [id number] Memoria 21:00:00 04:59:59 r Neurology 23 Cabell [place] 2022-07-21 2022-07-21 Outpatient KEITH OrtegaSCHER MHMISCHER [id number] 16:00:00 23:59:59 Ab 23 Abran 2022-07-21 2022-07-21 Outpatient JANEE Ortega MISCHER [id number] 16:00:00 23:59:59 Ab 23 Abran 2022-07-21 2022-07-21 Outpatient MHIE MHIE [id number] Memoria 16:00:00 16:00:00 23 baldemar [place] 2022-07-21 2022-07-21 Outpatient MHIE BINTAIE [id number] Memoria 16:00:00 16:00:00 23 baldemar [place] 2022-04-13 2022-04-13 Ambulatory nullFlavo MNA [id number] Memoria 18:15:00 18:15:00 Pre-Reg r Neurology 22 l Cabell [place] 2022-04-13 2022-04-13 Ambulatory nullFlavo MNA [id number] Memoria 18:15:00 18:15:00 Pre-Reg r Neurology 22 l Cabell [place] 2022-04-13 2022-04-13 Ambulatory nullFlavo MNA [id number] Memoria 18:15:00 18:15:00 Pre-Reg r Neurology 22 l [place] 2022-04-13 2022-04-13 Outpatient MHIE MHIE [id number] Memoria 13:15:00 13:15:00 22 baldemar Gay 2022-04-13 2022-04-13 Outpatient MHIE MHIE [id number] Memoria 13:15:00 13:15:00 22 baldemar Gay 2022-04-13 2022-04-13 Outpatient KEITH OrtegaSCHER MHMISCHER [id number] 13:15:00 13:15:00 Ab 22 Abran 2022-04-13 2022-04-13 Outpatient KEITH OrtegaSCHER MHDANIELLESCHER [id number] 13:15:00 13:15:00 Ab 22 Abran 2022-03-08 2022-03-08 Orders Doctor GEOR[place]IA 1.2.840.114 [id number] Univers 00:00:00 00:00:00 Only Unassigned, LISA 350.1.13.10 ity of [place] [facility] 4.2.7.2.686 Luis as [id number] [address] 2022-02-11 2022-02-12 Outpatient nullFlavo MNA [id number] Memoria 18:00:00 04:59:59 r Neurology 19 l Elvin Gay 2022-02-11 2022-02-12 Outpatient nullFlavo MNA [id number] Memoria 18:00:00 04:59:59 r Neurology 19 l Elvin Gay 2022-02-11 2022-02-12 Outpatient nullFlavo MNA [id number] Memoria 18:00:00 04:59:59 r Neurology 19 l Elvin Gay 2022-02-11 2022-02-11 Outpatient KEITH OrtegaSCHER MHMISCHER [id number] 13:00:00 23:59:59 Ab 19 Abran 2022-02-11 2022-02-11 Outpatient Shannon KEITHSCHER MHMISCHER [id number] 13:00:00 23:59:59 Ab 19 Abran 2022-02-11 2022-02-11 Outpatient MHIE MHIE [id number] Memoria 13:00:00 13:00:00 19 baldemar Gay 2022-02-11 2022-02-11 Outpatient MHIE MHIE [id number] Memoria 13:00:00 13:00:00 19 baldemar Gay 2022-01-06 2022-01-07 Outpatient nullFlavo MNA [id number] Memoria 15:15:00 05:59:59 r Neurology 21 l Elvin Gay 2022-01-06 2022-01-07 Outpatient nullFlavo MNA [id number] Memoria 15:15:00 05:59:59 r Neurology 21 l Elvin Gay 2022-01-06 2022-01-07 Outpatient nullFlavo MNA [id number] Memoria 15:15:00 05:59:59 r Neurology 21 l Elvin Gay 2022-01-06 2022-01-06 Outpatient Shannon, MHMISCHER MHMISCHER [id number] 09:15:00 23:59:59 Ab 21 Abran 2022-01-06 2022-01-06 Outpatient Shannon, MHMISCHER MHMISCHER [id number] 09:15:00 23:59:59 Ab 21 Abran 2022-01-06 2022-01-06 Outpatient MHIE MHIE [id number] Memoria 09:15:00 09:15:00 21 l [place] 2022-01-06 2022-01-06 Outpatient MHIE MHIE [id number] Memoria 09:15:00 09:15:00 21 baldemar [place] 2021-12-16 2021-12-16 Treatment Beverly Cartagen[place]ail 1.2.840.1 [id number] Methodi 09:00:00 10:00:[address] 3.430.2.7 Hospit a .3.787811 l .8 2021-12-16 2021-12-16 Treatment Beverly Cartagena Candice 1.2.840.1 [id number] Methodi 09:00:00 10:00:00 [address]rice [address] 3.430.2.7 Hospit a .3.600497 l .8 2021-12-16 2021-12-16 Travel 1.2.840.1 1.2.901.097 [id number] Methodi 00:00:00 00:00:[address] 3.430.2.7 0.2.7.3.698 Ho spita .3.685098 084.8 l .8 2021-12-16 2021-12-16 Travel 1.2.840.1 1.2.491.728 [id number] Methodi 00:00:00 00:00:[address] 3.430.2.7 0.2.7.3.698 Ho spita .3.907269 084.8 l .8 2021-12-10 2021-12-11 Outpatient nullFlavo MNA [id number] Memoria 22:15:00 05:59:59 r Neurology 20 l Elvin Rashidann 2021-12-10 2021-12-11 Outpatient nullFlavo MNA [id number] Memoria 22:15:00 05:59:59 r Neurology 20 l Elvin Rashidann 2021-12-10 2021-12-11 Outpatient nullFlavo MNA [id number] Memoria 22:15:00 05:59:59 r Neurology 20 l Elvin Rashidann 2021-12-10 2021-12-10 Outpatient Shannon MHMISCHER MHMISCHER [id number] 16:15:00 23:59:59 Ab 20 Abran 2021-12-10 2021-12-10 Outpatient Shannon, MHMISCHER MHMISCHER [id number] 16:15:00 23:59:59 Ab 20 Abran 2021-12-10 2021-12-10 Ambulatory nullFlavo MNA [id number] Memoria 22:15:00 22:15:00 Pre-Reg r Neurology 17 l Elvin Gay 2021-12-10 2021-12-10 Ambulatory nullFlavo MNA [id number] Memoria 22:15:00 22:15:00 Pre-Reg r Neurology 17 l Elvin Rashidann 2021-12-10 2021-12-10 Ambulatory nullFlavo MNA [id number] Memoria 22:15:00 22:15:00 Pre-Reg r Neurology 17 l Elvin Rashidann 2021-12-10 2021-12-10 [id number] Memoria 16:15:00 16:15:00 20 baldemar Gay 2021-12-10 2021-12-10 Outpatient MHIE MHIE [id number] Memoria 16:15:00 16:15:00 17 baldemar Gay 2021-12-10 2021-12-10 Outpatient MHIE MHIE [id number] Memoria 16:15:00 16:15:00 20 baldemar Gay 2021-12-10 2021-12-10 Outpatient MHIE MHIE [id number] Memoria 16:15:00 16:15:00 17 baldemar Gay 2021-12-10 2021-12-10 Outpatient BINTA OrtegaUTSCHER MHMISCHER [id number] 16:15:00 16:15:00 Ba 17 Abran 2021-12-10 2021-12-10 [id number] 16:15:00 16:15:00 Ab 17 Abran 2021-11-30 2021-11-30 Treatment Beverly [place] Candice 1.2.840.1 [id number] Methodi 09:00:00 10:00:00 Caprice [address] [address] 3.430.2.7 Hospit a .3.142523 l .8 2021-11-30 2021-11-30 Treatment Beverly Cartagenail 1.2.840.1 [id number] Methodi 09:00:00 10:00:00 Caprice [address] [address] 3.430.2.7 Hospit a .3.337115 l .8 2021-11-30 2021-11-30 Travel 1.2.840.1 1.2.374.430 [id number] Methodi 00:00:00 00:00:[address] 3.430.2.7 0.2.7.3.698 Ho spita .3.853420 084.8 l .8 2021-11-30 2021-11-30 Travel 1.2.840.1 1.2.461.781 [id number] Methodi 00:00:00 00:00:[address] 3.430.2.7 0.2.7.3.698 spita .3.551037 084.8 l .8 2021-11-19 2021-11-20 Outpatient nullFlavo MNA [id number] Memoria 19:00:00 05:59:59 r Neurology 18 l Elvin Gay 2021-11-19 2021-11-20 Outpatient nullFlavo MNA [id number] Memoria 19:00:00 05:59:59 r Neurology 18 l Elvin Gay 2021-11-19 2021-11-20 Outpatient nullFlavo MNA [id number] Memoria 19:00:00 05:59:59 r Neurology 18 l Elvin Gay 2021-11-19 2021-11-19 Outpatient KEITH OrtegaSCHER MHMISCHER [id number] 13:00:00 23:59:59 Ab 18 Abran 2021-11-19 2021-11-19 Outpatient KEITH OrtegaSCHER MHMISCHER [id number] 13:00:00 23:59:59 Ab 18 Abran 2021-11-19 2021-11-19 Outpatient MHIE MHIE [id number] Memoria 13:00:00 13:00:00 18 baldemar Gay 2021-11-19 2021-11-19 Outpatient MHIE MHIE [id number] Memoria 13:00:00 13:00:00 18 baldemar Gay 2021-11-18 2021-11-18 Treatment Beverly Cartagenail .[id number] Methodi 10:00:00 11:00:00 Nenita Marshall [id number] 3.430.2.7 Hospit a .3.475942 l .8 2021-11-18 2021-11-18 Treatment Beverly [place] Candice 1.2.840.1 [id number] Methodi 10:00:00 11:00:00 Nenita Marshall [address]26.[address] 3.430.2.7 Hospit a .3.804444 l .8 2021-11-17 2021-11-17 Evaluation Beverly [place] Candice 1.2.840. 1 [id number] Methodi 08:00:00 09:00:00 Caprice [address]de [address] 3.430.2.7 Hospit a .3.976004 l .8 2021-11-17 2021-11-17 Evaluation Beverly [place] Candice 1.2.840. 1 [id number] Methodi 08:00:00 09:00:[address] 3.430.2.7 Hospit a .3.850870 l .8 2021-11-17 2021-11-17 Plan of 1.2.840.1 [id number] 7294 Methodi 00:00:00 00:00:[address] Documentat 3.430.2.7 Hos rene ion .3.227386 l .8 2021-11-17 2021-11-17 Travel 1.2.840.1 1.2.335.098 4390 [id number] Methodi 00:00:00 00:00:[address] 3.430.2.7 0.2.7.3.698 Ho spita .3.593780 084.8 l .8 2021-11-17 2021-11-17 Plan of 1.2.840.1 [id number] 1240 Methodi 00:00:00 00:00:[address] Documentat 3.430.2.7 Hos rene ion .3.768126 l .8 2021-11-17 2021-11-17 Travel 1.2.840.1 1.2.723.146 5140 636973 Methodi 00:00:00 00:00:[address] 3.430.2.7 0.2.7.3.698 Ho spita .3.946191 084.8 l .8 2021-11-12 2021-11-12 Transcribe Eulogio, 1.2.840.1 [id number] Methodi 00:00:00 00:00:00 Orders Beverly 89382.1.[address] Candice 3.430.2.7 Hospit a .3.698415 l .8 2021-11-12 2021-11-12 Transcribe Eulogio, 1.2.840.1 [id number] 088 [id number] Methodi 00:00:00 00:00:00 Orders Beverly 98784.1.[address] Candice 3.430.2.7 Hospit a .3.315730 l .8 2021-11-12 2021-11-12 Travel 1.2.840.1 1.2.487.983 2304 [id number] Methodi 00:00:00 00:00:[address] 3.430.2.7 0.2.7.3.698 Ho spita .3.720918 084.8 l .8 2021-11-12 2021-11-12 Travel 1.2.840.1 1.2.756.226 9896 816893 Methodi 00:00:00 00:00:[address] 3.430.2.7 0.2.7.3.698 Ho spita .3.647520 084.8 l .8 2021-09-04 2021-09-06 Outside nullFlavo MNA [id number] Memoria 14:17:35 04:59:59 Medical r Neurology 02 l Records Elvin Gay 2021-09-04 2021-09-06 Outside nullFlavo MNA [id number] Memoria 14:17:35 04:59:59 Medical r Neurology 02 l Records Elvin Gay 2021-09-04 2021-09-06 Outside nullFlavo MNA [id number] Memoria 14:17:35 04:59:59 Medical r Neurology 02 l Records Elvin Rashidann 2021-09-04 2021-09-05 Outpatient MHMISCHER MHMISCHER [id number] 09:17:35 23:59:59 02 2021-09-04 2021-09-05 Outpatient MHMISCHER MHMISCHER [id number] 09:17:35 23:59:59 02 2021-08-31 2021-08-31 Outpatient EULOGIO, [facility] [id number] [place] 00:00:00 00:00:00 BEVERLY 800 Method i 2021-08-27 2021-08-27 Outpatient EULOGIO, [facility] [id number] [place] 00:00:00 00:00:00 BEVERLY 462 Method i 2021-08-24 2021-08-26 Outside nullFlavo MNA [id number] Memoria 14:49:32 04:59:59 Medical r Neurology 01 l Records Elvin Rashidann 2021-08-24 2021-08-26 Outside nullFlavo MNA [id number] Memoria 14:49:32 04:59:59 Medical r Neurology 01 l Records Elvin Rashidann 2021-08-24 2021-08-26 Outside nullFlavo MNA [id number] Memoria 14:49:32 04:59:59 Medical r Neurology 01 l Records Elvin Rashidann 2021-08-24 2021-08-25 Outpatient MHMISCHER MHMISCHER [id number] 09:49:32 23:59:59 2021-08-24 2021-08-25 Outpatient MHMISCHER MHMISCHER [id number] 09:49:32 23:59:59 2021-08-24 2021-08-24 Outpatient EULOGIO, [facility] [id number] [place] 00:00:00 00:00:00 BEVERLY 384 Method i 2021-08-20 2021-08-20 Outpatient EULOGIO, [facility] [id number] [place] 00:00:00 00:00:00 BEVERLY 342 Method i 2021-08-19 2021-08-19 Outpatient EULOGIO, [facility] [id number] [address] [place] 00:00:00 00:00:00 BEVERLY 343 Method i 2021-08-14 2021-08-14 [facility] 1.2.840.114 [id number] [facility] 10:12:38 10:59:24 Visit Bhupinder Lopez 350.1.13.10 it y [facility] 4.2.7.2.686 [facility] [id number] [address] 2021-08-14 2021-08-14 Outpatient R [facility] [id number] [facility] 10:15:00 10:15:00 ity [facility] 2021-08-10 2021-08-10 Outpatient EULOGIO, [facility] [id number] [place] 00:00:00 00:00:00 BEVERLY 230 Method i 2021-08-06 2021-08-06 Outpatient EULOGIO, [facility] [id number] [place] 00:00:00 00:00:00 BEVERLY 205 Method i 2021-07-30 2021-07-30 Outpatient EULOGIO, [facility] [id number] [place] 00:00:00 00:00:00 BEVERLY 805 Method i 2021-07-27 2021-07-27 Outpatient EULOGIO, [facility] [id number] [place] 00:00:00 00:00:00 BEVERLY 774 Method i 2021-07-23 2021-07-23 Outpatient EULOGIO, [facility] [id number] [address] [place] 00:00:00 00:00:00 BEVERLY 727 Method i 2021-07-20 2021-07-20 Outpatient EULOGIO, [facility] [id number] [address] [place] 00:00:00 00:00:00 BEVERLY 774 Method i 2021-07-09 2021-07-09 Outpatient EULOGIO, [facility] [id number] [address] [place] 00:00:00 00:00:00 BEVERLY 643 Method i 2021-07-08 2021-07-08 Outpatient EULOGIO, [facility] [id number] [place] 00:00:00 00:00:00 BEVERLY 592 Method i 2021-07-02 2021-07-02 Outpatient EULOGIO, [facility] [id number] [place] 00:00:00 00:00:00 BEVERLY 982 Method i 2021-06-23 2021-06-23 Outpatient EULOGIO, [facility] [id number] [address] [place] 00:00:00 00:00:00 BEVERLY [address] 2021-06-09 2021-06-11 Inpatient DAMIAN Alejo MEDI.01 [id number] [facility] 16:03:00 15:30:00 Reji [id number] [facility] 2021-06-09 2021-06-09 [facility] [id number] [facility] 16:08:00 16:08:00 79 [facility] 2021-04-08 2021-04-09 Outpatient nullFlavo MNA [id number] Memoria 14:00:00 04:59:59 r Neurology 16 l [place] 2021-04-08 2021-04-09 Outpatient nullFlavo MNA [id number] Memoria 14:00:00 04:59:59 r Neurology 16 l [place] 2021-04-08 2021-04-09 Outpatient nullFlavo MNA [id number] Memoria 14:00:00 04:59:59 r Neurology 16 l [place] 2021-04-08 2021-04-08 Outpatient Shannon MHMISCHER MHMISCHER [id number] 09:00:00 23:59:59 Ab 16 Abran 2021-04-08 2021-04-08 Outpatient Shannon MHMISCHER MHMISCHER [id number] 09:00:00 23:59:59 Ab 16 Abran 2021-04-08 2021-04-08 Outpatient MHIE MHIE [id number] [facility] 09:00:00 09:00:00 16 l [place] 2021-04-08 2021-04-08 Outpatient MHIE MHIE [id number] [facility] 09:00:00 09:00:00 16 l [place] 2020-12-26 2020-12-28 Outside nullFlavo MNA [id number] [facility]oria 17:32:20 05:59:59 Medical r Neurology 00 l Records Elvin Gay 2020-12-26 2020-12-28 Outside nullFlavo MNA [id number] [facility]oria 17:32:20 05:59:59 Medical r Neurology 00 l Records [place] 2020-12-262020-12-28 Outside nullFlavo MNA [id number] Memoria 17:32:20 05:59:59 Medical r Neurology 00 l Benjamín Gay 2020-12-26 2020-12-27 Outpatient MHMISCHER MHMISCHER [id number] 11:32:20 23:59:59 00 2020-12-26 2020-12-27 Outpatient MHMISCHER MHMISCHER [id number] 11:32:20 23:59:59 00 2020-12-22 2020-12-23 Outpatient nullFlavo MNA [id number] Memoria 20:30:00 05:59:59 r Neurology 15 l Elvin Gay 2020-12-22 2020-12-23 Outpatient nullFlavo MNA [id number] Memoria 20:30:00 05:59:59 r Neurology 15 l Elvin Gay 2020-12-22 2020-12-23 Outpatient nullFlavo MNA [id number] Memoria 20:30:00 05:59:59 r Neurology 15 l Elvin Gay 2020-12-22 2020-12-22 [id number] 14:30:00 23:59:59 Ab Nilsa Osullivan 2020-12-22 2020-12-22 Outpatient BINTA OrtegaUTSCHER MHMISCHER [id number] 14:30:00 23:59:59 Ab 15 Abran 2020-12-22 2020-12-22 Outpatient MHIE MHIE [id number] [facility] 14:30:00 14:30:00 15 baldemar Gay 2020-12-22 2020-12-22 Outpatient MHIE MHIE [id number] [facility] 14:30:00 14:30:00 15 baldemar Gay 2020-12-04 2020-12-04 Ambulatory nullFlavo MNA [id number] Memoria 19:15:00 19:15:00 Pre-Reg r Neurology 14 l Elvin Gay 2020-12-04 2020-12-04 Ambulatory nullFlavo MNA [id number] Memoria 19:15:00 19:15:00 Pre-Reg r Neurology 14 l Elvin Gay 2020-12-04 2020-12-04 Ambulatory nullFlavo MNA [id number] Memoria 19:15:00 19:15:00 Pre-Reg r Neurology 14 baldemar Gay 2020-12-04 2020-12-04 Outpatient MHIE MHIE [id number] [facility] 13:15:00 13:15:00 14 baldemar Gay 2020-12-04 2020-12-04 Outpatient MHIE MHIE [id number] [facility]oria 13:15:00 13:15:00 14 baldemar Gay 2020-12-04 2020-12-04 Outpatient BINTA OrtegaMISCHER MHMISCHER [id number] 13:15:00 13:15:00 Ab 14 Abran 2020-12-04 2020-12-04 Outpatient Shannon MHMISCHER MHMISCHER [id number] 13:15:00 13:15:00 Ab 14 [place] 2020-09-30 2020-09-30 Outpatient [facility], [facility] [id number] [address] [place] [address] 00:00:00 00:00:[address] i 2020-07-31 2020-08-01 Outpatient nullFlavo MNA [id number] Memoria 18:15:00 04:59:59 r Neurology 13 l [place] 2020-07-31 2020-08-01 Outpatient nullFlavo MNA [id number] Memoria 18:15:00 04:59:59 r Neurology 13 l [place] 2020-07-31 2020-08-01 Outpatient nullFlavo MNA [id number] Memoria 18:15:00 04:59:59 r Neurology 13 baldemar [place] 2020-07-31 2020-07-31 Outpatient BINTA OrtegaMISCHER MHMISCHER [id number] 13:15:00 23:59:59 Ab 13 [place]an 2020-07-31 2020-07-31 Outpatient Shannon MHMISCHER MHMISCHER [id number] 13:15:00 23:59:59 Ab 13 Abran 2020-07-31 2020-07-31 Outpatient MHIE MHIE [id number] Memoria 13:15:00 13:15:00 13 baldemar [place] 2020-07-31 2020-07-31 Outpatient MHIE MHIE [id number] [facility] 13:15:00 13:15:00 13 baldemar Gay 2020-07-29 2020-07-29 Ambulatory nullFlavo MNA [id number] Memoria 16:15:00 16:15:00 Pre-Reg r Neurology 12 l Elvin Gay 2020-07-29 2020-07-29 Ambulatory nullFlavo MNA [id number] Memoria 16:15:00 16:15:00 Pre-Reg r Neurology 12 l Elvin Gay 2020-07-29 2020-07-29 Ambulatory nullFlavo MNA [id number] Memoria 16:15:00 16:15:00 Pre-Reg r Neurology 12 l Elvin Gay 2020-07-29 2020-07-29 [id number] 11:15:00 11:15:00 Ab 12 [place]an 2020-07-29 2020-07-29 [facility] [id number] 11:15:00 11:15:00 Ab 12 Abran 2020-06-06 2020-06-06 Ambulatory nullFlavo MNA [id number] Memoria 18:00:00 18:00:00 Pre-Reg r Neurology 11 l Elvin Gay 2020-06-06 2020-06-06 Ambulatory nullFlavo MNA [id number] Memoria 18:00:00 18:00:00 Pre-Reg r Neurology 11 l Elvin Gay 2020-06-06 2020-06-06 Ambulatory nullFlavo MNA [id number] Memoria 18:00:00 18:00:00 Pre-Reg r Neurology 11 l [place] Rashidann 2020-06-06 2020-06-06 Outpatient MHIE MHIE [id number] [facility] 13:00:00 13:00:00 12 baldemar [place] 2020-06-06 2020-06-06 Outpatient MHIE MHIE [id number] [facility] 13:00:00 13:00:00 11 baldemar Gay 2020-06-06 2020-06-06 Outpatient MHIE MHIE [id number] [facility] 13:00:00 13:00:00 12 baldemar [place] 2020-06-06 2020-06-06 Outpatient MHIE MHIE [id number] [facility]oria 13:00:00 13:00:00 11 baldemar Gay 2020-06-06 2020-06-06 [facility] [id number] 13:00:00 13:00:00 Ab 11 [place] 2020-06-06 2020-06-06 Outpatient [facility]UTSCHER [facility] [id number] 13:00:00 13:00:00 Ab 11 [facility] 2020-03-12 2020-03-13 Outpatient nullFlavo MNA [id number] Memoria 18:45:00 04:59:59 r Neurology 09 l Elvin [place] 2020-03-12 2020-03-13 Outpatient nullFlavo MNA [id number] Memoria 18:45:00 04:59:59 r Neurology 09 l [place] 2020-03-12 2020-03-13 Outpatient nullFlavo MNA [id number] Memoria 18:45:00 04:59:59 r Neurology 09 l Elvin [place] 2020-03-12 2020-03-12 Outpatient KE[facility]ZURDO [facility] [id number] 13:45:00 23:59:59 Ab 09 [facility] 2020-03-12 2020-03-12 Outpatient KE[facility]SCHZURDO [facility] [id number] 13:45:00 23:59:59 Ab 09 [facility] 2020-03-12 2020-03-12 Outpatient MHIE MHIE [id number] Memoria 13:45:00 13:45:00 09 [place] 2020-03-12 2020-03-12 Outpatient MHIE MHIE [id number] Memoria 13:45:00 13:45:00 09 baldemar [place] 2020-01-22 2020-01-23 Outpatient nullFlavo MNA [id number] Memoria 17:45:00 05:59:59 r Neurology 10 l [place] 2020-01-22 2020-01-23 Outpatient nullFlavo MNA [id number] Memoria 17:45:00 05:59:59 r Neurology 10 l [place] 2020-01-22 2020-01-23 Outpatient nullFlavo MNA [id number] Memoria 17:45:00 05:59:59 r Neurology 10 l [place] 2020-01-22 2020-01-22 Outpatient KEITH OrtegaSCHZURDO [facility]ANIELLESCHER [id number] 11:45:00 23:59:59 Ab 10 [facility] 2020-01-22 2020-01-22 Outpatient [facility]ZURDO [facility] [id number] 11:45:00 23:59:59 Ab 10 [facility] 2020-01-22 2020-01-22 Outpatient MHIE IE [id number] Memoria 11:45:00 11:45:00 10 [facility] 2020-01-22 2020-01-22 Outpatient MHIE IE [id number] Memoria 11:45:00 11:45:00 10 [facility] 2020-01-11 2020-01-12 Outpatient nullFlavo MNA [id number] Memoria 20:15:00 05:59:59 r Neurology 08 l [place] 2020-01-11 2020-01-12 Outpatient nullFlavo MNA [id number] Memoria 20:15:00 05:59:59 r Neurology 08 l [place] 2020-01-11 2020-01-12 Outpatient nullFlavo MNA [id number] Memoria 20:15:00 05:59:59 r Neurology 08 l [place] 2020-01-11 2020-01-11 [facility] [id number] 14:15:00 23:59:59 Ab 08 [place] 2020-01-11 2020-01-11 [facility] [id number] 14:15:00 23:59:59 Ab 08 [facility] 2020-01-11 2020-01-11 Ambulatory nullFlavo MNA [id number] Memoria 20:15:00 20:15:00 Pre-Reg r Neurology 07 l [place] 2020-01-11 2020-01-11 Ambulatory nullFlavo MNA [id number] Memoria 20:15:00 20:15:00 Pre-Reg r Neurology 07 l [place] 2020-01-11 2020-01-11 Ambulatory nullFlavo MNA [id number] Memoria 20:15:00 20:15:00 Pre-Reg r Neurology 07 l [place] 2020-01-11 2020-01-11 Outpatient MHIE IE [id number] [facility]oria 14:15:00 14:15:00 08 [facility] 2020-01-11 2020-01-11 Outpatient MHIE IE [id number] Memoria 14:15:00 14:15:00 07 l [place] 2020-01-11 2020-01-11 Outpatient MHIE MHIE [id number] Memoria 14:15:00 14:15:00 08 l [place] 2020-01-11 2020-01-11 Outpatient MHIE MHIE [id number] Memoria 14:15:00 14:15:00 07 baldemar Gay 2020-01-11 2020-01-11 Outpatient Shannon[facility] [id number] 14:15:00 14:15:00 Ab 07 [place] 2020-01-11 2020-01-11 Outpatient Shannon[facility] [id number] 14:15:00 14:15:00 Ab 07 [place] 2019-12-06 2019-12-07 Outpatient nullFlavo MNA [id number] Memoria 22:00:00 05:59:59 r Neurology 06 l Elvin Gay 2019-12-06 2019-12-07 Outpatient nullFlavo MNA [id number] Memoria 22:00:00 05:59:59 r Neurology 06 l Elvin Gay 2019-12-06 2019-12-07 Outpatient nullFlavo MNA [id number] Memoria 22:00:00 05:59:59 r Neurology 06 l [place]vin [place] 2019-12-06 2019-12-06 Outpatient Shannon[facility] [id number] 16:00:00 23:59:59 Ab 06 [place] 2019-12-06 2019-12-06 Outpatient Shannon[facility] [id number] 16:00:00 23:59:59 Ab 06 [place] 2019-12-06 2019-12-06 Outpatient MHIE MHIE [id number] [facility]oria 16:00:00 16:00:00 06 baldemar Gay 2019-12-06 2019-12-06 Outpatient MHIE MHIE [id number] [facility]oria 16:00:00 16:00:00 06 baldemar [place] 2019-12-05 2019-12-05 Ambulatory nullFlavo MNA [id number] Memoria 14:15:00 14:15:00 Pre-Reg r Neurology 05 l [place] 2019-12-05 2019-12-05 Ambulatory nullFlavo MNA [id number] Memoria 14:15:00 14:15:00 Pre-Reg r Neurology 05 l [place] 2019-12-05 2019-12-05 Ambulatory nullFlavo MNA [id number] Memoria 14:15:00 14:15:00 Pre-Reg r Neurology 05 baldemar Gay 2019-12-05 2019-12-05 Outpatient MHIE MHIE [id number] Memoria 08:15:00 08:15:00 05 baldemar Gya 2019-12-05 2019-12-05 Outpatient MHIE MHIE [id number] Memoria 08:15:00 08:15:00 05 baldemar Gay 2019-12-05 2019-12-05 Outpatient Shannon MHMISCHER MHMISCHER [id number] 08:15:00 08:15:00 Ab Lenin Osullivan 2019-12-05 2019-12-05 Outpatient Shannon MHMISCHER MHMISCHER [id number] 08:15:00 08:15:00 Ab Lenin Osullivan 2019-11-16 2019-11-16 Ambulatory nullFlavo MNA [id number] Memoria 19:00:00 19:00:00 Pre-Reg r Neurology 03 baldemar Gay 2019-11-16 2019-11-16 Ambulatory nullFlavo MNA [id number] Memoria 19:00:00 19:00:00 Pre-Reg r Neurology 03 baldemar Gay 2019-11-16 2019-11-16 Ambulatory nullFlavo MNA [id number] Memoria 19:00:00 19:00:00 Pre-Reg r Neurology 03 baldemar Gay 2019-11-16 2019-11-16 Outpatient MHIE MHIE [id number] [facility]oria 13:00:00 13:00:00 03 baldemar Gay 2019-11-16 2019-11-16 Outpatient MHIE MHIE [id number] [facility]oria 13:00:00 13:00:00 03 baldemar Gay 2019-11-16 2019-11-16 Outpatient Shannon MHMISCHER MHMISCHER [id number] 13:00:00 13:00:00 Ab Moses Osullivan 2019-11-16 2019-11-16 Outpatient Shannon, MHMISCHER MHMISCHER [id number] 13:00:00 13:00:00 Ab 03 [place]an 2019-11-09 2019-11-10 Outpatient nullFlavo MNA [id number] Memoria 17:30:00 05:59:59 r Neurology 04 l Elvin Gay 2019-11-09 2019-11-10 Outpatient nullFlavo MNA [id number] Memoria 17:30:00 05:59:59 r Neurology 04 l Elvin Gay 2019-11-09 2019-11-10 Outpatient nullFlavo MNA [id number] Memoria 17:30:00 05:59:59 r Neurology 04 baldemar Gay 2019-11-09 2019-11-09 Outpatient Shannon, BINTAMISCHER MHMISCHER [id number] 11:30:00 23:59:59 Ab 04 [place] 2019-11-09 2019-11-09 Outpatient Shannon, MHMISCHER MHMISCHER [id number] 11:30:00 23:59:59 Ab Sparkle Osullivan 2019-11-09 2019-11-09 Outpatient MHIE MHIE [id number] Memoria 11:30:00 11:30:00 04 baldemar Gay 2019-11-09 2019-11-09 Outpatient MHIE MHIE [id number] Memoria 11:30:00 11:30:00 04 baldemar Gay 2019-09-19 2019-09-20 Outpatient nullFlavo MNA [id number] Memoria 18:00:00 04:59:59 r Neurology 02 baldemar Gay 2019-09-19 2019-09-20 Outpatient nullFlavo MNA [id number] Memoria 18:00:00 04:59:59 r Neurology 02 baldemar Gay 2019-09-19 2019-09-20 Outpatient nullFlavo MNA [id number] Memoria 18:00:00 04:59:59 r Neurology 02 baldemar Gay 2019-09-19 2019-09-19 Outpatient Shannon, MHMISCHER MHMISCHER [id number] 13:00:00 23:59:59 Ab 02 [place] 2019-09-19 2019-09-19 Outpatient Shannon, MHMISCHER MHMISCHER [id number] 13:00:00 23:59:59 Ab 02 [place]an 2019-09-19 2019-09-19 Outpatient MHIE MHIE [id number] [facility]oria 13:00:00 13:00:00 02 baldemar Gay 2019-09-19 2019-09-19 Outpatient MHIE MHIE [id number] [facility]oria 13:00:00 13:00:00 02 baldemar [place] 2019-08-23 2019-08-24 Outpatient nullFlavo MNA [id number] Memoria 18:30:00 04:59:59 r Neurology 01 l Elvin [place] 2019-08-23 2019-08-24 Outpatient nullFlavo MNA [id number] Memoria 18:30:00 04:59:59 r Neurology 01 Elvin [place] 2019-08-23 2019-08-24 Outpatient nullFlavo MNA [id number] Memoria 18:30:00 04:59:59 r Neurology 01 Elvin [place] 2019-08-23 2019-08-23 Outpatient Shannon MHMISCHER MHMISCHER [id number] 13:30:00 23:59:59 Ab [facility] 2019-08-23 2019-08-23 Outpatient Shannon MHMISCHER MHMISCHER [id number] 13:30:00 23:59:59 Ab [facility] 2019-08-23 2019-08-23 Outpatient MHIE MHIE [id number] Memoria 13:30:00 13:30:00 01 baldemar [place] 2019-08-23 2019-08-23 Outpatient MHIE MHIE [id number] Memoria 13:30:00 13:30:00 01 baldemar [place] 2019-07-18 2019-07-19 Outpatient nullFlavo MNA [id number] Memoria 14:15:00 04:59:59 r Neurology 00 l [place] 2019-07-18 2019-07-19 Outpatient nullFlavo MNA [id number] Memoria 14:15:00 04:59:59 r Neurology 00 l [place]vin [place] 2019-07-18 2019-07-19 Outpatient nullFlavo MNA [id number] Memoria 14:15:00 04:59:59 r Neurology 00 l [place] 2019-07-18 2019-07-18 Outpatient Shannon MHMISCHER MHMISCHER [id number] 09:15:00 23:59:59 Ab [facility] 2019-07-18 2019-07-18 Outpatient Shannon MHMISCHER MHMISCHER [id number] 09:15:00 23:59:59 Ab [facility] 2019-07-18 2019-07-18 Outpatient MHIE MHIE [id number] Memoria 09:15:00 09:15:00 00 baldemar [place] 2019-07-18 2019-07-18 Outpatient KARINA COLLINS [id number] Memoria 09:15:00 09:15:00 00 baldemar Gay Results Test Description Test Time Test Comments Results Result Comments Source INFECTION CONTROL PROFILE 2021-06-13 18:10:00 Test Item Value Reference Range Interpretation Comme nts HEPATITIS C RNA BY Negative Negative Negative: HCV RNA Not PCR-QUAL (test code = Detect edPerformed At: BN HCVRNAPCR) [facility] dmg1740 [facility] [place], [place] [id number] ra Danielle SALINAS Ph:[phone] AG HEPATITIS B SURFACE NON REACTIVE INDEX NonReactive (test code = HBSAG) AB HIV 1 2 (test code = NONREACTIVE INDEX NONREACTIVE [id number]) HIV 1/2 RAPID SCREEN NONREACTIVE NONREACTIVE Critic al result called to (test code = [id number]) TED BROTHERS RN/Foreign ColonLAB.UN at 165 9 06/09/21Nmy arcos back resut and tech confir med it's correct? Y AG HIV1 P24 (test code NONREACTIVE NONREACTIVE = CCQ8L10) BASIC METABOLIC [id number] 07:47:00 Test Item Value Reference Range Interpretation [...] code = 9.0 mg/dL 8.0-10.5 N CA) [id number] 07:47:00 Test Item Value Reference Range Interpretation Comments MAGNESIUM (test code = MAG) 1.91 mg/dL 1.80-2.40 N CBC W/AUTO [id number] 07:13:00 Test Item Value Reference Range Interpretation [...] (test NO code = MDIFF) INFECTION CONTROL [id number] 17:05:00 Test Item Value Reference Range Interpretation Comments HEPATITIS C RNA BY PCR-QUAL (test code = HCVRNAPCR) AG HEPATITIS B NON REACTIVE INDEX NonReactive SURFACE (test code = HBSAG) AB HIV 1 2 (test NONREACTIVE INDEX NONREACTIVE code = [id number]) HIV 1/2 RAPID NONREACTIVE NONREACTIVE Critical resu lt SCREEN (test code called to KEHINDE = [id number]) ANGELA BROTHERS/Riya brewer G.LAB.UN at 165 9 06/09/21Nurse read back resut and tech confirmed it's correct? Y AG HIV1 P24 (test NONREACTIVE NONREACTIVE code = [id number]) INFECTION CONTROL [id number] 17:01:00 Test Item Value Reference Range Interpretation Comments HEPATITIS C RNA BY PCR-QUAL (test code = HCVRNAPCR) AG HEPATITIS B INDEX NonReactive SURFACE (test code = HBSAG) AB HIV 1 2 (test code INDEX NONREACTIVE = [id number]) HIV 1/2 RAPID SCREEN NONREACTIVE NONREACTIVE Critic al result (test code = called to TED A [id number]) ANGELA BROTHERS/Riya brewer G.LAB.UN at 165 9 06/09/21Nurse r ead back resut and tech confirmed it's correct? Y AG HIV1 P24 (test NONREACTIVE NONREACTIVE code = [id number]) COVID 19 Asymptomatic IH [id number] 13:43:00 Test Item Value Reference Range Interpretation Comments COVID 19 Asymptomatic Negative Negative A nega tive result is IH AG (test code = presumpti ve and should COVNONPUIAG) be confirmedwit h an FDA authorized mole cular assay, if neces reggie forpatient toya gement.A positive result does not rule out co-inf ections withother patho gens.This test detects vadim th viable (live) and non-viable,SARS -CoV, and SARS-CoV-2. Fernando t performance dep ends on theamount of vi josephine (antigen) in th e sample.This fernando t has not been FDA cleare d or approved; the t est hasbeen authori anselmod by FDA under an Em ergency Use Authorizati on(EUA) for use by labo ratories certified under the CLIA thatmeet the requirements to perform moderate, high or waivedcomplexit y tests. - XR CHEST 2 [id number] 13:06:00 [facility] 1965 Sex: F FAX: Dennis Graves MD [phone] [place]: St: PRE FAX: Beverly Cartagena MD [phone] FAX: Katherine Villa Name: GINA MARIE [facility] : 1965 Age/S: 55/F [address] [place] [address] Unit #: [id number] Loc: [place] [address] Phys: Katherine Ma NP Acct: [id number] Dis Date: Status: PRE [facility] [place] PHONE #: [phone] Exam Date: 06/08/2021 1143 FAX #: [phone] Reason: PREOP EXAMS: CPT CODE: [id number] XR CHEST 2 V [id number] Clinical Indication: Preoperative evaluation. Comparison: 03/08/2019. Impression: Chest, 2 views. No consolidation, pleural effusion, or pneumothorax. Cardiac silhouette is of normal size. No acute osseous abnormality. Thoracic spinal stimulating device is in place. SL: [id number] at 1306 Reported and signed by: Brian Mendes M.D. CC: Dennis Chaves MD; Beverly Cartagena MD; Katherine Ma NP Technologist: RT Milly(Tasia) Trnscrd Date/Time/By: 06/08/2021 (5314) : By: [email or web address] Orig Print D/T: S: 06/08/2021 (9169) PAGE 1 Signed ReportBASIC METABOLIC [id number] 11:59:00 Test Item Value Reference Range Interpretation [...] 8.9 mg/dL 8.0-10.5 N CA) CBC W/AUTO [id number] 11:55:00 Test Item Value Reference Range Interpretation [...] code NO = MDIFF) AFB CULTURE + [id number] 12:03:00 Test Item Value Reference Range Interpretation Comments CULTURE (BEAKER) (test No acid-fast bacilli code = 1095) isolated in 42 days AFB SMEAR (BEAKER) No acid fast bacilli (test code = 994) seen FUNGUS CULTURE + [id number] 18:46:00 Test Item Value Reference Range Interpretation Comments CULTURE (BEAKER) A 1+ Jo-Ann albicans (test code = 1095) FUNGUS SMEAR No fungi seen (BEAKER) (test code = 1406) MISCELLANEOUS LAB [id number] 07:43:00 Test Item Value Reference Range Interpretation Comments SCAN RESULT (test code = 3461225) CBC W/PLT COUNT & AUTO [id number] 11:31:00 Test Item Value Reference Range Interpretation [...] PERCENT (BEAKER) (test code = 2801) POCT-GLUCOSE [id number] 08:15:00 Test Item Value Reference Range Interpretation Comments POC-GLUCOSE METER 87 mg/dL 70-110 : TESTED A T [facility] 6720 (BEAKER) (test code = [place], 1538) 82438: Supervisor Intermediates/Techni theo ID = [id number] for GINNY PULIDO [id number] 08:08:00 Test Item Value Reference Range Interpretation Comments MAGNESIUM (BEAKER) 1.6 mg/dL 1.6-2.6 Specimen slightly (test code = 627) hemolyzed COMPREHENSIVE METABOLIC [id number] 08:08:00 Test Item Value Reference Range Interpretation [...] NOT APPLICABLE FOR DIALYSIS PATIEN TS. POCT-GLUCOSE [id number] 23:32:00 Test Item Value Reference Range Interpretation Comments POC-GLUCOSE METER 98 mg/dL 70-110 : TESTED A T [facility] 6720 ([employer]) (test code = [facility] [employer] [facility], 1538) 67818: Supervisor Intermediates/Techni theo ID = [id number] for REYN OLDS, PATEL POCT-GLUCOSE [id number] 17:52:00 Test Item Value Reference Range Interpretation Comments POC-GLUCOSE METER 88 mg/dL 70-110 : TESTED A T [facility] 6720 (BEAKER) (test code = [facility] [employer] [facility], 1538) 53395: Supervisor Intermediates/Techni theo ID = [id number] for DOBB INS, ZAK POCT-GLUCOSE [id number] 11:53:00 Test Item Value Reference Range Interpretation Comments POC-GLUCOSE METER 161 mg/dL 70-110 H : TESTED A T [facility] 6720 (BEAKER) (test code = [place], 1538) 13393: Supervisor Intermediates/Techni theo ID = [id number] for DO ZAK COKER BRONCHIAL CULTURE + GRAM [id number] 10:38:00 Test Item Value Reference Range Interpretation Comments CULTURE (BEAKER) (test See comment code = 1095) GRAM STAIN RESULT 2+ White blood cells (BEAKER) (test code = seen 1123) GRAM STAIN RESULT No organisms seen (BEAKER) (test code = 450256) 1+ YeastRAD, CHEST, 1 VIEW, NON [id number] 08:59:00Reason for exam:- >endotracheal intubationShould this be [...] Silva MDReport Verified Date/Time: 10/14/201908:59:12 Reading Location: [address] Transitional Reading Room [id number] 08:38:00 Test Item Value Reference Range Interpretation Comments MAGNESIUM (BEAKER) 2.0 mg/dL 1.6-2.6 Specimen slightly (test code = 627) hemolyzed COMPREHENSIVE METABOLIC [id number] 08:38:00 Test Item Value Reference Range Interpretation [...] PATIEN TS. CBC W/PLT COUNT & AUTO [id number] 08:23:00 Test Item Value Reference Range Interpretation [...] PERCENT (BEAKER) (test code = 2801) POCT-GLUCOSE [id number] 07:07:00 Test Item Value Reference Range Interpretation Comments POC-GLUCOSE METER 84 mg/dL 70-110 : TESTED A T [facility] 6720 (BEAKER) (test code = [place], 1538) 26931: Supervisor Intermediates/Techni theo ID = [id number] for Kamille Magana BLOOD GAS, [id number] 04:38:00 Test Item Value Reference Range Interpretation [...] (test code = 1819) 36.0 % POCT-GLUCOSE [id number] 01:19:00 Test Item Value Reference Range Interpretation Comments POC-GLUCOSE METER 152 mg/dL 70-110 H : TESTED A T [facility] 6720 (BEAKER) (test code = [facility], 1538) 95390: Supervisor Intermediates/Techni theo ID = [id number] for Kamille Garcia BLOOD [id number] 19:01:00 Test Item Value Reference Range Interpretation Comments CULTURE (BEAKER) (test No growth in 5 days code = 1095) POCT-GLUCOSE [id number] 18:11:00 Test Item Value Reference Range Interpretation Comments POC-GLUCOSE METER 82 mg/dL 70-110 : TESTED A T [facility] 6720 (BEAKER) (test code = [facility], 1538) 43261: Supervisor Intermediates/Techni theo ID = [id number] for DOBB INS, ZAK POCT-GLUCOSE [id number] 12:34:00 Test Item Value Reference Range Interpretation Comments POC-GLUCOSE METER 87 mg/dL 70-110 : TESTED A T [facility] 6720 (BEAKER) (test code = [facility] [employer] [facility], 1538) 54922: Supervisor Intermediates/Techni theo ID = [id number] for SAND ERS, GIDEON CBC W/PLT COUNT & AUTO [id number] 09:13:00 Test Item Value Reference Range Interpretation [...] 0-1 PERCENT (BEAKER) (test code = 2801) [id number] 06:55:00 Test Item Value Reference Range Interpretation Comments MAGNESIUM (BEAKER) (test code = 1.8 mg/dL 1.6-2.6 627) COMPREHENSIVE METABOLIC [id number] 06:55:00 Test Item Value Reference Range Interpretation [...] APPLICABLE FOR DIALYSIS PATIEN TS. BLOOD GAS, [id number] 06:41:00 Test Item Value Reference Range Interpretation [...] 28.0 % RAD, CHEST, 1 VIEW, NON [id number] 04:40:00Reason for exam:->endotracheal intubationShould this be performed [...] A T [facility] 6720 ([facility]) (test code = [place], 1538) 73240: Supervisor Intermediates/Techni theo ID = [id number] for Dianna Wetzel RAD, MANDIBLE, MIN 4 [id number] 17:22:00Reason for exam:->Liver Transplant EvaluationShould this be [...] Date/Time: 10/12/2019 17:22:01 Reading Location: [facility] Reading Room POCT-GLUCOSE [id number] 12:42:00 Test Item Value Reference Range Interpretation Comments POC-GLUCOSE METER 119 mg/dL 70-110 H : TESTED A T [facility] 6720 (BEAKER) (test code = [place], 1538) 13866: Supervisor Intermediates/Techni theo ID = [id number] for Tyler Sanchez RAD, CHEST, 1 VIEW, NON [id number] 09:14:00Reason for exam:->endotracheal intubationShould this be performed [...] Signed: JR Rox, Tyler Spangler Verified Date/Time: 10/12/2019 09:14:48 Reading Location: [facility] Radiology Reading Room [id number] 04:39:00 Test Item Value Reference Range Interpretation Comments MAGNESIUM (BEAKER) (test code = 1.8 mg/dL 1.6-2.6 627) COMPREHENSIVE METABOLIC [id number] 04:39:00 Test Item Value Reference Range Interpretation [...] PATIEN TS. CBC W/PLT COUNT & AUTO [id number] 04:18:00 Test Item Value Reference Range Interpretation [...] (BEAKER) (test code = 2801) BLOOD GAS, [id number] 04:17:00 Test Item Value Reference Range Interpretation [...] (test code = 1819) 30.0 % SPIN/CONCENTRATION [id number] 01:15:00 Test Item Value Reference Range Interpretation Comments CONCENTRATION CHARGED (BEAKER) (test Done code = 2657) BODY FLUID CELL COUNT WITH [id number] 18:00:00 Test Item Value Reference Range Interpretation [...] (test code = 2873) EEG AWAKE AND [id number] 17:00:00Reason for exam:->acute encephalopathyShould this be performed at the bedside?->YesDate(s) of EE10/11/2019 DATE OF REPORT: 10/11/2019ACC: [id number] Number: [id number] Location: Inpatient ICUStart time: 10/11/2019 16:09Stop time: 10/11/2019 16:31ICD-10: R41.82 CPT Code: 77470 HISTORY: 54 y.o. female with hypertension, chronic [...] of this report.Jermaine Walton MD, PhDAttending NeurophysiologistCHI [place], [place] SPUTUM CULTURE + GRAM [id number] 15:43:00 Test Item Value Reference Range Interpretation Comments CULTURE (BEAKER) 4+ Normal respiratory (test code = 1095) candy present GRAM STAIN RESULT 2+ White blood cells (BEAKER) (test code = seen 1123) GRAM STAIN RESULT 0-5 epithelial cells (BEAKER) (test code = 59305) GRAM STAIN RESULT 1+ gram positive rods (BEAKER) (test code = 90268) GRAM STAIN RESULT <1+ yeast (BEAKER) (test code = 179916) MISCELLANEOUS LAB [id number] 08:34:00 Test Item Value Reference Range Interpretation Comments SCAN RESULT (test code = 9064831) RAD, CHEST, 1 VIEW, NON [id number] 07:51:00Reason for exam:->endotracheal intubationShould this be performed [...] hardware.Additional findings: None. Signed: JR Rox, Tyler TRIVEDIeport Verified Date/Time: 10/11/2019 07:51:10 Reading Location: [facility] Radiology Reading Room BLOOD [id number] 07:00:00 Test Item Value Reference Range Interpretation Comments CULTURE (BEAKER) (test No growth in 5 days code = 1095) BLOOD [id number] 07:00:00 Test Item Value Reference Range Interpretation Comments CULTURE (BEAKER) (test No growth in 5 days code = 1095) POCT-GLUCOSE [id number] 05:51:00 Test Item Value Reference Range Interpretation Comments POC-GLUCOSE METER 103 mg/dL 70-110 : TESTED A T [facility] 6720 (BEAKER) (test code = [place], 1538) 22112: Supervisor Intermediates/Techni theo ID = [id number] for SHARI BAJWA BLOOD GAS, [id number] 04:55:00 Test Item Value Reference Range Interpretation [...] (BEAKER) (test code = 1819) 40.0 % [id number] 04:46:00 Test Item Value Reference Range Interpretation Comments MAGNESIUM (BEAKER) (test code = 2.2 mg/dL 1.6-2.6 627) COMPREHENSIVE METABOLIC [id number] 04:46:00 Test Item Value Reference Range Interpretation [...] PATIEN TS. CBC W/PLT COUNT & AUTO [id number] 04:11:00 Test Item Value Reference Range Interpretation [...] PERCENT (BEAKER) (test code = 2801) POCT-GLUCOSE [id number] 23:55:00 Test Item Value Reference Range Interpretation Comments POC-GLUCOSE METER 118 mg/dL 70-110 H : TESTED A T [facility] 6720 (BEAKER) (test code = LIV MN[facility]Z, 1538) 62108: Supervisor Intermediates/Techni theo ID = [id number] for SHARI BAJWA POCT-GLUCOSE [id number] 17:40:00 Test Item Value Reference Range Interpretation Comments POC-GLUCOSE METER 142 mg/dL 70-110 H : TESTED A T [facility] 6720 (BEAKER) (test code = [facility], 1538) 07917: Supervisor Intermediates/Techni theo ID = [id number] for Karely Bautista POCT-GLUCOSE [id number] 12:30:00 Test Item Value Reference Range Interpretation Comments POC-GLUCOSE METER 114 mg/dL 70-110 H : [facility] (JASON[facility] (test code = [facility] Do[facility], 1538) 51271: Supervisor Intermediates/Techni theo ID = [id number] for Karely Bautista HIV-1 PCR, [id number] 11:07:00 Test Item Value Reference Range Interpretation Comments HIV-1 RESULT HIV RNA not detected HIV RNA not detected COMPONENT (JASON) (test code = 2703) This test uses a Real-Time Polymerase Chain Reaction (RT-PCR) methodology to detect a highly conserved region of the HIV-1 gag gene and was performed using the CHRISTINA AmpliPrep/CHRISTINA TaqMan HIV-1 test kit version 2.0 ([employer]Reportable range for this assay is 20 - 10,000,000 copies per mL (1.3 - 7.0 Log copies/mL).[id number] 08:14:00 Test Item Value Reference Range Interpretation Comments T3 TOTAL (JASON) (test code = 656) 36 ng/dL 48-159 L RAD, CHEST, 1 VIEW, NON [id number] 07:15:00Reason for exam:->endotracheal intubationShould this be performed [...] MDReport Verified Date/Time: 10/10/2019 07:15:28 Reading Location: [facility] Radiology Reading Room POCT- GLUCOSE [id number] 06:26:00 Test Item Value Reference Range Interpretation Comments POC-GLUCOSE METER 103 mg/dL 70-110 : TESTED [place] [facility] 6720 (BEAKER) (test code = [place], 1538) 22679: Supervisor Intermediates/Techni theo ID = [id number] for SUSIE TRUONG [id number] 05:32:00 Test Item Value Reference Range Interpretation [...] within 95-100% range.CBC W/PLT COUNT & AUTO [id number] 05:23:00 Test Item Value Reference Range Interpretation [...] 0-1 PERCENT (BEAKER) (test code = 2801) [id number] 05:10:00 Test Item Value Reference Range Interpretation [...] is 2.5-3.5 for patients wiht mechanical heart valves.[id number] 05:10:00 Test Item Value Reference Range Interpretation Comments PHOSPHORUS (BEAKER) (test code = 3.3 mg/dL 2.3-4.7 604) [id number] 05:10:00 Test Item Value Reference Range Interpretation Comments MAGNESIUM (BEAKER) (test code = 2.3 mg/dL 1.6-2.6 627) COMPREHENSIVE METABOLIC [id number] 05:10:00 Test Item Value Reference Range Interpretation [...] S NOT APPLICABLE FOR DIALYSIS PATIEN TS. [id number] 05:08:00 Test Item Value Reference Range Interpretation Comments FIBRINOGEN LEVEL (BEAKER) (test 275 mg/dl 225-434 code = 658) PROTHROMBIN TIME/[id number] 05:07:00 Test Item Value Reference Range Interpretation [...] 2.5-3.5 for patients wiht mechanical heart valves.CALCIUM, [id number] 04:59:00 Test Item Value Reference Range Interpretation Comments CALCIUM IONIZED (BEAKER) (test 1.20 mmol/L 1.12-1.27 code = 698) PH, BLOOD (BEAKER) (test code = 7.37 1810) BLOOD GAS, [id number] 04:55:00 Test Item Value Reference Range Interpretation [...] (test code = 1819) 40.0 % POCT-GLUCOSE [id number] 00:46:00 Test Item Value Reference Range Interpretation Comments POC-GLUCOSE METER 90 mg/dL 70-110 : TESTED A T [facility] 6720 (BEAKER) (test code = [place], 1538) 73174: Supervisor Intermediates/Techni theo ID = [id number] for SUSIE LISA MRSA [id number] 19:33:00 Test Item Value Reference Range Interpretation Comments CULTURE (BEAKER) (test code No MRSA isolated = 1095) PROTHROMBIN TIME/[id number] 18:00:00 Test Item Value Reference Range Interpretation [...] is 2.5-3.5 for patients wiht mechanical heart valves.PT/[id number] 18:00:00 Test Item Value Reference Range Interpretation [...] is 2.5-3.5 for patients wiht mechanical heart valves.[id number] 17:55:00 Test Item Value Reference Range Interpretation Comments MAGNESIUM (BEAKER) (test code = 1.9 mg/dL 1.6-2.6 627) BASIC METABOLIC [id number] 17:55:00 Test Item Value Reference Range Interpretation [...] APPLICABLE FOR DIALYSIS PATIEN TS. CYTOMEGALOVIRUS ANTIBODY, [id number] 16:41:00 Test Item Value Reference Range Interpretation Comments CYTOMEGALOVIRUS, IGG (BEAKER) Negative Negative, Equivocal (test code = 3429) CMV IgG Result Interpretation: </= 0.8 Al Negative 0.9-1.0 Al Equivocal >/=1.1 Al PositiveCYTOMEGALOVIRUS ANTIBODY, [id number] 16:41:00 Test Item Value Reference Range Interpretation Comments CYTOMEGALOVIRUS IGM ANTIBODY Negative Negative, Equivocal (BEAKER) (test code = 3437) CMV IgM Result Interpretation: </= 0.8 Al Negative 0.9-1.0 Al Equivocal >/= 1.1 Al PositiveEBV ANTIBODY, [id number] 16:41:00 Test Item Value Reference Range Interpretation Comments JAMA ROUSE VIRAL CAPSID Positive Negative, Equivocal A ANTIGEN IGG (BEAKER) (test code = 3415) Jama Rouse Viral Capsid Antigen IgG Result Interpretation: </= 0.8 Al Negative 0.9-1.0 Al Equivocal >/= 1.1 Al PositiveEBV ANTIBODY, [id number] 16:41:00 Test Item Value Reference Range Interpretation Comments JAMA ROUSE VIRAL CAPSID Positive Negative, Equivocal A ANTIGEN IGM (BEAKER) (test code = 3418) Jama Rouse Viral Capsid Antigen IgM Result Interpretation: </= 0.8 Al Negative 0.9-1.0 Al Equivocal >/= 1.1 Al PositivePOCT-GLUCOSE [id number] 16:15:00 Test Item Value Reference Range Interpretation Comments POC-GLUCOSE METER 107 mg/dL 70-110 : TESTED A T [facility] 6720 ([facility]) (test code = [place], 1538) 85839: Supervisor Intermediates/Techni theo ID = [id number] for Karely Bautista CT, BRAIN, WITHOUT [id number] 14:07:00Patient with decerebrate posturing, r/o herniationFINAL REPORT [...] Date/Time: 10/09/2019 14:07:57 SPUTUM CULTURE + GRAM [id number] 12:59:00 Test Item Value Reference Range Interpretation Comments CULTURE (BEAKER) See comment (test code = 1095) GRAM STAIN RESULT 1+ White blood cells (BEAKER) (test code = seen 1123) GRAM STAIN RESULT 0-5 epithelial cells (BEAKER) (test code = 321287) GRAM STAIN RESULT No organisms seen (BEAKER) (test code = 723361) 2+ YeastNo Normal respiratory candy presentPOCT-GLUCOSE [id number] 12:22:00 Test Item Value Reference Range Interpretation Comments POC-GLUCOSE METER 168 mg/dL 70-110 H : TESTED A T [facility] 6720 (BEAKER) (test code = [place], 1538) 66420: Supervisor Intermediates/Techni theo ID = [id number] for Karely Bautista POCT-GLUCOSE [id number] 10:04:00 Test Item Value Reference Range Interpretation Comments POC-GLUCOSE METER 101 mg/dL 70-110 : TESTED A T [facility] 6720 (BEAKER) (test code = [place], 1538) 10396: Supervisor Intermediates/Techni theo ID = [id number] for Karely Bautista BILIRUBIN, [id number] 09:44:00 Test Item Value Reference Range Interpretation Comments BILIRUBIN DIRECT (BEAKER) (test 1.5 mg/dL 0.1-0.5 H code = 706) [id number] 07:19:00 Test Item Value Reference Range Interpretation [...] within 95-100% range.RAD, CHEST, 1 VIEW, NON [id number] 05:16:00Reason for exam:->endotracheal intubationShould this be performed [...] Cummins MDReport Verified Date/Time: 10/09/2019 05:16:08 CALCIUM, [id number] 05:05:00 Test Item Value Reference Range Interpretation Comments CALCIUM IONIZED (BEAKER) (test 1.14 mmol/L 1.12-1.27 code = 698) PH, BLOOD (BEAKER) (test code = 7.49 1810) BLOOD GAS, [id number] 05:04:00 Test Item Value Reference Range Interpretation [...] 40.0 % CBC W/PLT COUNT & AUTO [id number] 04:51:00 Test Item Value Reference Range Interpretation [...] (BEAKER) (test code = 2801) VANCOMYCIN LEVEL, [id number] 04:26:00 Test Item Value Reference Range Interpretation Comments VANCOMYCIN TROUGH (BEAKER) (test 7.0 ug/mL 10.0-20.0 L code = 522) [id number] 04:21:00 Test Item Value Reference Range Interpretation Comments PHOSPHORUS (BEAKER) (test code = 3.2 mg/dL 2.3-4.7 604) [id number] 04:21:00 Test Item Value Reference Range Interpretation Comments MAGNESIUM (BEAKER) (test code = 1.9 mg/dL 1.6-2.6 627) COMPREHENSIVE METABOLIC [id number] 04:21:00 Test Item Value Reference Range Interpretation [...] S NOT APPLICABLE FOR DIALYSIS PATIEN TS. [id number] 04:19:00 Test Item Value Reference Range Interpretation Comments FIBRINOGEN LEVEL (BEAKER) (test 267 mg/dl 225-434 code = 658) PT/[id number] 04:14:00 Test Item Value Reference Range Interpretation [...] 2.5-3.5 for patients wiht mechanical heart valves.PROTHROMBIN TIME/[id number] 04:13:00 Test Item Value Reference Range Interpretation [...] 2.5-3.5 for patients wiht mechanical heart valves.POCT-GLUCOSE [id number] 01:04:00 Test Item Value Reference Range Interpretation Comments POC-GLUCOSE METER 143 mg/dL 70-110 H : TESTED A T [facility] 6720 (BEAKER) (test code = [facility], 1538) 39382: Supervisor Intermediates/Techni theo ID = [id number] for BONY BRISCOE, SUSIE POCT-GLUCOSE [id number] 20:20:00 Test Item Value Reference Range Interpretation Comments POC-GLUCOSE METER 145 mg/dL 70-110 H : TESTED A T [facility] 6720 (BEAKER) (test code = [facility] Dozier [facility], 1538) 28853: Supervisor Intermediates/Techni theo ID = [id number] for BONY BRISCOE, SUSIE POCT-GLUCOSE [id number] 16:43:00 Test Item Value Reference Range Interpretation Comments POC-GLUCOSE METER 164 mg/dL 70-110 H : TESTED A T [facility] 6720 (BEAKER) (test code = [place], 1538) 05588: Supervisor Intermediates/Techni theo ID = [id number] for Karely Bautista CMV PCR, [id number] 15:47:00 Test Item Value Reference Range Interpretation [...] and its performance characteristics determined by the [facility] Pathol ogy Department, Section of Molecular Pathology. It has not been cleared or approved by the U.S. Foodand Drug Administration (FDA), since FDA approval is not required for clinical use of the test. Validation was done as required by The Clinical Laboratory Improvement Amendments of 1988.[id number] 15:29:00 Test Item Value Reference Range Interpretation Comments PHOSPHORUS (BEAKER) (test code = 3.5 mg/dL 2.3-4.7 604) [id number] 15:29:00 Test Item Value Reference Range Interpretation Comments MAGNESIUM (BEAKER) (test code = 2.1 mg/dL 1.6-2.6 627) [id number] 15:01:00 Test Item Value Reference Range Interpretation Comments PHOSPHORUS (BEAKER) (test code = 2.1 mg/dL 2.3-4.7 L 604) [id number] 15:01:00 Test Item Value Reference Range Interpretation Comments MAGNESIUM (BEAKER) (test code = 2.0 mg/dL 1.6-2.6 627) BASIC METABOLIC [id number] 15:01:00 Test Item Value Reference Range Interpretation [...] APPLICABLE FOR DIALYSIS PATIEN TS. Specimen slightly ictericPT/[id number] 14:53:00 Test Item Value Reference Range Interpretation [...] is 2.5-3.5 for patients wiht mechanical heart valves.[id number] 14:38:00 Test Item Value Reference Range Interpretation Comments AMMONIA (BEAKER) (test code = 348) 34 mol/L 18-72 RUBELLA ANTIBODY, [id number] 14:20:00 Test Item Value Reference Range Interpretation Comments RUBELLA IGG QUANTITATION (BEAKER) 1.0 IU/mL <8.0 (test code = 572) Rubella IgG Result Interpretation: </= 7.0 IU/mL Negative - Presumed non- immune 8.0 - 9.9 IU/mL Equivocal >= 10.0 IU/mL Positive - Presumed immune VARICELLA ZOSTER ANTIBODY, [id number] 13:49:00 Test Item Value Reference Range Interpretation Comments VARICELLA ZOSTER IGG (AL) (BEAKER) 4.8 (test code = 3197) VARICELLA ZOSTER RESULT INTERPRETATIONS: <=0.8 Al Nonreactive: Presumed non- immune to VZV 0.9-1.0Al Equivocal >=1.1 Al Reactive: Presumed immune to VZV CRYPTOCOCCAL [id number] 13:33:00 Test Item Value Reference Range Interpretation Comments CRYPTOCOCCAL ANTIGEN, SERUM Negative Negative, Interference (BEAKER) (test code = 1828) FACTOR 5 ACTIVITY (BLEEDING RISK)2019-10-08 13:03:00 Test Item Value Reference Range Interpretation Comments FACTOR V ACTIVITY (BEAKER) (test code = 9.0 % 60.0-150.0 L 665) CBC W/PLT COUNT & AUTO [id number] 12:13:00 Test Item Value Reference Range Interpretation [...] PERCENT (BEAKER) (test code = 2801) POCT-GLUCOSE [id number] 11:22:00 Test Item Value Reference Range Interpretation Comments POC-GLUCOSE METER 184 mg/dL 70-110 H : TESTED A T [facility] 6720 (BEAKER) (test code = [place] [place] [place], 1538) 56516: Supervisor Intermediates/Techni theo ID = [id number] for Karely Bautista ANTI-NUCLEAR ANTIBODY (JOSE ARMANDO)2019-10-08 10:44:00 Test Item Value Reference Range Interpretation Comments ANTI-NUCLEAR ANTIBODY (JOSE ARMANDO) (BEAKER) Negative Negative (test code = 418) Test performed by IFA method.Test performed by IFA method.[id number] 09:26:00 Test Item Value Reference Range Interpretation Comments PHOSPHORUS (BEAKER) (test code = 2.9 mg/dL 2.3-4.7 604) [id number] 09:26:00 Test Item Value Reference Range Interpretation Comments MAGNESIUM (BEAKER) (test code = 2.0 mg/dL 1.6-2.6 627) BASIC METABOLIC [id number] 09:26:00 Test Item Value Reference Range Interpretation [...] Specimen slightly ictericRAD, CHEST, 1 VIEW, NON [id number] 09:14:00Reason for exam:->endotracheal intubationShould this be performed [...] MDReport Verified Date/Time: 10/08/2019 09:14:39 Reading Location: [facility] Radiology Reading Room -[id number] 06:25:00 Test Item Value Reference Range Interpretation [...] of thrombosis is within 95-100% range. PROTHROMBIN [id number] 05:32:00 Test Item Value Reference Range Interpretation [...] is 2.5-3.5 for patients wiht mechanical heart valves.[id number] 05:32:00 Test Item Value Reference Range Interpretation Comments FIBRINOGEN LEVEL (BEAKER) (test 200 mg/dl 225-434 L code = 658) [id number] 05:32:00 Test Item Value Reference Range Interpretation [...] Specimen slightly ictericCBC W/PLT COUNT & AUTO [id number] 05:24:00 Test Item Value Reference Range Interpretation [...] 0-1 H PERCENT (BEAKER) (test code = 280) LACTIC ACID, [id number] 05:16:00 Test Item Value Reference Range Interpretation Comments LACTATE BLOOD VENOUS (2) (BEAKER) 1.8 mmol/L 0.5-2.2 (test code = 1152) [id number] 23:51:00 Test Item Value Reference Range Interpretation Comments PHOSPHORUS (BEAKER) (test code = 4.4 mg/dL 2.3-4.7 604) [id number] 23:51:00 Test Item Value Reference Range Interpretation Comments MAGNESIUM (BEAKER) (test code = 2.2 mg/dL 1.6-2.6 627) BASIC METABOLIC [id number] 23:51:00 Test Item Value Reference Range Interpretation [...] DIALYSIS PATIEN TS. Specimen slightly ictericBLOOD GAS, [id number] 23:37:00 Test Item Value Reference Range Interpretation [...] 50.0 % CBC W/PLT COUNT & AUTO [id number] 20:12:00 Test Item Value Reference Range Interpretation [...] PERCENT (BEAKER) (test code = 2801) POCT-GLUCOSE [id number] 20:01:00 Test Item Value Reference Range Interpretation Comments POC-GLUCOSE METER 143 mg/dL 70-110 H : TESTED A T [facility] 6720 (BEAKER) (test code = [facility], 1538) [address]: Supervisor Intermediates/Techni theo ID = [id number] for Liban Arnett BLOOD GAS, [id number] 19:54:00 Test Item Value Reference Range Interpretation [...] (test code = 1819) 24.0 % POCT-GLUCOSE [id number] 19:01:00 Test Item Value Reference Range Interpretation Comments POC-GLUCOSE METER 155 mg/dL 70-110 H : TESTED A T [facility] 6720 (BEAKER) (test code = [facility], 1538) 011[address]: Supervisor Intermediates/Techni theo ID = [id number] for GIDEON NUNEZ HEPATOBILIARY [id number] 18:38:00Please do at bedside. Thank you.FINAL REPORT PROCEDURE: HEPATOBILIARY SCAN CPT CODE: 41516 INDICATION: abdominal pain PROTOCOL: 5.3 mCi of [...] Jeffery Alarcon Verified Date/Time: 10/07/2019 18:38:40 POCT-GLUCOSE [id number] 16:52:00 Test Item Value Reference Range Interpretation Comments POC-GLUCOSE METER 166 mg/dL 70-110 H : [facility] (BEAKER) (test code = [place], 1538) [address]: Supervisor Intermediates/Techni theo ID = [id number] for GIDEON NUNEZ [id number] 16:40:00 Test Item Value Reference Range Interpretation [...] is 2.5-3.5 for patients wiht mechanical heart valves.[id number] 16:40:00 Test Item Value Reference Range Interpretation Comments FIBRINOGEN LEVEL (BEAKER) (test 156 mg/dl 225-434 L code = 658) PROTHROMBIN [id number] 16:39:00 Test Item Value Reference Range Interpretation [...] is 2.5-3.5 for patients wiht mechanical heart valves.[id number] 16:36:00 Test Item Value Reference Range Interpretation Comments PHOSPHORUS (BEAKER) (test code = 1.8 mg/dL 2.3-4.7 L 604) [id number] 16:36:00 Test Item Value Reference Range Interpretation Comments MAGNESIUM (BEAKER) (test code = 2.5 mg/dL 1.6-2.6 627) BASIC METABOLIC [id number] 16:36:00 Test Item Value Reference Range Interpretation [...] APPLICABLE FOR DIALYSIS PATIEN TS. BLOOD GAS, [id number] 16:22:00 Test Item Value Reference Range Interpretation [...] 25.0 % CBC W/PLT COUNT & AUTO [id number] 12:44:00 Test Item Value Reference Range Interpretation [...] PERCENT (BEAKER) (test code = 2801) POCT-GLUCOSE [id number] 12:23:00 Test Item Value Reference Range Interpretation Comments POC-GLUCOSE METER 145 mg/dL 70-110 H : TESTED A T [facility] 6720 (BEAKER) (test code = [place], 1538) [address]: Supervisor Intermediates/Techni theo ID = [id number] for GIDEON NUNEZ [id number] 12:06:00 Test Item Value Reference Range Interpretation Comments T4 TOTAL (BEAKER) (test code = 895) 4.6 ug/dL 4.9-11.7 L [id number] 10:00:00 Test Item Value Reference Range Interpretation Comments PHOSPHORUS (BEAKER) (test code = 2.8 mg/dL 2.3-4.7 604) [id number] 10:00:00 Test Item Value Reference Range Interpretation Comments MAGNESIUM (BEAKER) (test code = 2.0 mg/dL 1.6-2.6 627) BASIC METABOLIC [id number] 10:00:00 Test Item Value Reference Range Interpretation [...] NOT APPLICABLE FOR DIALYSIS PATIEN TS. POCT-GLUCOSE [id number] 08:15:00 Test Item Value Reference Range Interpretation Comments POC-GLUCOSE METER 174 mg/dL 70-110 H : TESTED A T [facility] 6720 (BEAKER) (test code = [place], 1538) [address]: Supervisor Intermediates/Techni theo ID = [id number] for SA NDERS, GIDEON RAD, CHEST, 1 VIEW, NON [id number] 05:39:00Reason for exam:- >intubatedShould this be performed [...] Verified Date/Time: 10/07/2019 05:39:22 05:39 AMBLOOD GAS, [id number] 05:29:00 Test Item Value Reference Range Interpretation [...] (BEAKER) (test code = 1819) 40.0 % [id number] 05:07:00 Test Item Value Reference Range Interpretation [...] thrombosis is within 95-100% range. COMPREHENSIVE METABOLIC [id number] 04:59:00 Test Item Value Reference Range Interpretation [...] PATIEN TS. CBC W/PLT COUNT & AUTO [id number] 04:32:00 Test Item Value Reference Range Interpretation [...] H PERCENT (BEAKER) (test code = 2801) [id number] 04:30:00 Test Item Value Reference Range Interpretation Comments PHOSPHORUS (BEAKER) (test code = 3.1 mg/dL 2.3-4.7 604) [id number] 04:30:00 Test Item Value Reference Range Interpretation Comments MAGNESIUM (BEAKER) (test code = 1.8 mg/dL 1.6-2.6 627) POCT-GLUCOSE [id number] 04:25:00 Test Item Value Reference Range Interpretation Comments POC-GLUCOSE METER 126 mg/dL 70-110 H : TESTED A T [facility] 6720 (BEAKER) (test code = [facility] Tasia [facility], 1538) 64[address]: Supervisor Intermediates/Techni theo ID = [id number] for Liban Arnett [id number] 04:18:00 Test Item Value Reference Range Interpretation Comments FIBRINOGEN LEVEL (BEAKER) (test 173 mg/dl 225-434 L code = 658) [id number] 04:14:00 Test Item Value Reference Range Interpretation [...] for patients wiht mechanical heart valves.LACTIC ACID, [id number] 04:13:00 Test Item Value Reference Range Interpretation Comments LACTATE BLOOD VENOUS (2) (BEAKER) 1.2 mmol/L 0.5-2.2 (test code = 2872) POCT-GLUCOSE [id number] 01:33:00 Test Item Value Reference Range Interpretation Comments POC-GLUCOSE METER 103 mg/dL 70-110 : TESTED A T [facility] 6720 (BEAKER) (test code = [employer] [place], 1538) [address]: Supervisor Intermediates/Techni theo ID = [id number] for GISELE CUETO HEMOGLOBIN AND [id number] 00:27:00 Test Item Value Reference Range Interpretation Comments HEMOGLOBIN (BEAKER) (test code = 8.6 GM/DL 11.2-15.7 L 410) HEMATOCRIT (BEAKER) (test code = 26.2 % 34.1-44.9 L 411) POCT-GLUCOSE [id number] 22:58:00 Test Item Value Reference Range Interpretation Comments POC-GLUCOSE METER 146 mg/dL 70-110 H : TESTED A T [facility] 6720 (BEAKER) (test code = [employer] [place], 1538) 1968[address]: Supervisor Intermediates/Techni theo ID = [id number] for GISELE CUETO RAD, CHEST, 1 VIEW, NON [id number] 21:37:00Reason for exam:->line placement, right IJShould this [...] Carolynn Rodríguez MDReport Verified Date/Time: 10/06/2019 21:37:58 [facility] METABOLIC [id number] 20:04:00 Test Item Value Reference Range Interpretation [...] APPLICABLE FOR DIALYSIS PATIEN TS. PROTEIN, RANDOM [id number] 19:50:00 Test Item Value Reference Range Interpretation Comments PROTEIN, URINE (BEAKER) (test code = 83 mg/dL 0-14 H 1569) CREATININE, RANDOM [id number] 19:28:00 Test Item Value Reference Range Interpretation Comments CREATININE URINE (BEAKER) (test 37.6 mg/dL code = 375) Reference Range: No [id number] 19:00:00 Test Item Value Reference Range Interpretation Comments MAGNESIUM (BEAKER) 2.0 mg/dL 1.6-2.6 Specimen slightly (test code = 627) hemolyzed [id number] 19:00:00 Test Item Value Reference Range Interpretation [...] 0-0 (test code = 413) LACTIC ACID, [id number] 18:55:00 Test Item Value Reference Range Interpretation Comments LACTATE BLOOD VENOUS 1.9 mmol/L 0.5-2.2 Specime n slightly (2) (BEAKER) (test hemolyzed code = 2872) VITAMIN B12 AND [id number] 18:36:00 Test Item Value Reference Range Interpretation Comments VITAMIN B12 (BEAKER) (test code = > pg/mL 213-816 H 774) FOLATE (BEAKER) (test code = 362) 17.3 ng/mL >=7.0 BLOOD GAS, [id number] 18:29:00 Test Item Value Reference Range Interpretation [...] code = 1819) 40.0 % BASIC METABOLIC [id number] 17:47:00 Test Item Value Reference Range Interpretation [...] NOT APPLICABLE FOR DIALYSIS PATIEN TS. POCT-GLUCOSE [id number] 17:39:00 Test Item Value Reference Range Interpretation Comments POC-GLUCOSE METER 188 mg/dL 70-110 H : TESTED A T [facility] 6720 (BEAKER) (test code = [place], 1538) [address]67[address]: Supervisor Intermediates/Techni theo ID = [id number] for GIDEON NUNEZ LIPID [id number] 17:28:00 Test Item Value Reference Range Interpretation Comments TRIGLYCERIDES (BEAKER) (test code = 182 mg/dL 540) CHOLESTEROL (BEAKER) (test code = 106 mg/dL 631) HDL CHOLESTEROL (BEAKER) (test code 20 mg/dL = 976) LDL CHOLESTEROL CALCULATED (iOTOS, IncAKER) 50 mg/dL (test code = 633) Triglyceride [...] Value Reference Range Interpretation Comments URIC ACID (iOTOS, IncAKER) (test code = 7.3 mg/dL 2.6-7.2 H 773) HEMOGLOBIN [id number] 16:13:00 Test Item Value Reference Range Interpretation Comments HEMOGLOBIN A1C (BEAKER) (test code = 6.0 % 4.3-6.1 368) HEPATITIS A ANTIBODY, [id number] 16:13:00 Test Item Value Reference Range Interpretation Comments HEPATITIS A IGG ANTIBODY (Be my eyes) Reactive Nonreactive A (test code = 2797) CARCINOEMBRYONIC ANTIGEN (CEA)2019-10-06 16:08:00 Test Item Value Reference Range Interpretation Comments CARCINOEMBRYONIC ANTIGEN (BEAKER) 23.1 ng/mL 0.0-5.0 H (test code = 685) VITAMIN D, [id number] 16:08:00 Test Item Value Reference Range Interpretation Comments VITAMIN D 25-OH (BEAKER) (test 10.1 ng/mL 6.6-49.9 code = 2764) Effective 09/07/2017: Reference Range ChangeNew: 6.6-49.9 ng/mL Previous: 13.0- 47.8 ng/mLRecommendedVitamin D Target Range: 30.0-40.0 ng/mLTRANSFERRIN 2019-10-06 15:52:00 Test Item Value Reference Range Interpretation Comments TRANSFERRIN (BEAKER) (test code = 218 mg/dL 174-382 541) [id number] 15:09:00 Test Item Value Reference Range Interpretation Comments PHOSPHORUS (BEAKER) (test code = 1.7 mg/dL 2.3-4.7 L 604) U/S, ABDOMINAL, WITH [id number] 15:01:00Reason for exam:->acute liver injury, ? cholecystitis, [...] seen. No intrahepatic biliary dilatation. Signed: Amanda Vaneport Verified Date/Time: 10/06/2019 15:01:21 Reading Location: [address] Reading Room PREGNANCY SCREEN, [id number] 14:58:00 Test Item Value Reference Range Interpretation Comments TEST URINE (BEAKER) (test Negative code = 583) POCT-GLUCOSE [id number] 12:44:00 Test Item Value Reference Range Interpretation Comments POC-GLUCOSE METER 156 mg/dL 70-110 H : TESTED A T [facility] 6720 (BEAKER) (test code = [facility] [place], 1538) [address]: Supervisor Intermediates/Techni theo ID = [id number] for SA NDERS, GIDEON [id number] 12:39:00 Test Item Value Reference Range Interpretation Comments RPR SCREEN (BEAKER) (test code = Nonreactive Nonreactive 420) B-TYPE NATRIURETIC FACTOR (BNP)2019-10-06 11:57:00 Test Item Value Reference Range Interpretation Comments B-TYPE NATRIURETIC PEPTIDE 3996 pg/mL 0-100 H (BEAKER) (test code = 700) [id number] 11:51:00 Test Item Value Reference Range Interpretation Comments MAGNESIUM (BEAKER) (test code = 2.2 mg/dL 1.6-2.6 627) BLOOD GAS, [id number] 11:50:00 Test Item Value Reference Range Interpretation [...] code = 1819) 50.0 % RESPIRATORY PANEL [id number] 11:35:00 Test Item Value Reference Range Interpretation [...] [facility] using the W[facility] WAKU ? Respiratory Panel. It is FDA cleared and has been verified and approved by the [facility] Molecular Diagnostics Laboratory for clinical use on nasopharyngeal swab specimens.The performance of the FilmArrayRP has not been established in individuals who received influenza vaccine. Recent administration of a nasal influenza vaccine may cause false positive results for Influenza A and/orInfluenza B.RETICULOCYTE [id number] 11:32:00 Test Item Value Reference Range Interpretation Comments RETICULOCYTE COUNT PCT (JASON) (test 2.1 % 0.5-1.7 H code = 575) KETONE, [id number] 11:30:00 Test Item Value Reference Range Interpretation Comments KETONES, BLOOD (JASON) (test code 0.3 mmol/L <0.4 = 1103) LEGIONELLA ANTIGEN, [id number] 09:37:00 Test Item Value Reference Range Interpretation Comments L. PNEUMOPHILA Negative - see Negative fo r L. SEROGP 1 UR AG comment pneumophila (JASON) (test code serogrou p 1 antigen, = 1156) suggesting no r ecent or current infe ction with this serog roup. Legionellosis c annot be ruled out si nce other serogroup s and species may cau se disease. STREP PNEUMONIAE [id number] 09:37:00 Test Item Value Reference Range Interpretation Comments STREP PNEUMONIAE Presumptive negative Presumptive negative ANTIGEN (JASON) for pneumococcal for pneumococcal (test code = 1615) pneumonia - see pneumonia - see comment commen Presumptive negative for pneumococcal pneumonia, suggesting no current or recent pneumococcal infection. Infection due to S. pneumoniae cannot be ruled out since the antigen present in the sample may be below the detection limit of the test. POCT-GLUCOSE [id number] 08:45:00 Test Item Value Reference Range Interpretation Comments POC-GLUCOSE METER 119 mg/dL 70-110 H : TESTED A T [facility] 6720 (JASON) (test code = [facility], 1538) 58629: Supervisor Intermediates/Techni theo ID = [id number] for SA NDERS, GIDEON RAD, CHEST, 1 VIEW, NON [id number] 08:37:00Post-intubationReason for exam:- >intubationShould this be performed at the bedside?->YesFINAL REPORT Portable chest. CLINICAL HISTORY: intubation. COMPARISON STUDY: None. FINDINGS: The cardiac silhouette is prominent in size. The pulmonary parenchyma demonstrates increased interstitial markings bilaterally with patchy airspace opacities. An endotracheal tube, nasogastric tube and spinal stimulation device are seen. The tip of the endotracheal tube is approximately 5.5 cm above the gaensh. No pneumothorax is seen. Degenerative changes are [...] MDReport Verified Date/Time: 10/06/2019 08:37:13 Reading Location: [address] Ortho Consult Reading Room Electronically signed by: AMANDA VAN M.D.on 10/06/2019 08:37 [id number] 07:44:00 Test Item Value Reference Range Interpretation Comments PROCALCITONIN (BEAKER) (test code 0.97 ng/mL <0.05 H = 3036) SEPSIS RISK (ng/mL)Low: 0.05-0.50Intermediate: 0.51-2.00High: >=2.01 URINALYSIS W/ REFLEX URINE [id number] 07:15:00 Test Item Value Reference Range Interpretation [...] code = 2795) ALPHA FETOPROTEIN (AFP), TUMOR [id number] 06:49:00 Test Item Value Reference Range Interpretation Comments ALPHA-FETOPROTEIN (BEAKER) (test code < ng/mL <10.0 = 1094) For 1 occurencesHEPATITIS B SURFACE [id number] 06:49:00 Test Item Value Reference Range Interpretation Comments HEPATITIS B SURFACE ANTIBODY < mIU/mL <8.0 (BEAKER) (test code = 647) For 1 occurencesRAPID DRUG SCREEN, [id number] 06:33:00 Test Item Value Reference Range Interpretation [...] situations. Chain of custody not maintained. Some tusv-dpa-xfydvmf medications, as well as adulterants, may cause inaccurate results. Clinical correlation should be applied. A more comprehensive drug screen or confirmation of a detected drug may be performed upon request.CREATININE, RANDOM [id number] 06:30:00 Test Item Value Reference Range Interpretation Comments CREATININE URINE (BEAKER) (test 38.0 mg/dL code = 375) Reference Range: No NormalsSODIUM, RANDOM [id number] 06:30:00 Test Item Value Reference Range Interpretation Comments SODIUM URINE (BEAKER) (test code = 51 meq/L 243) Reference Range: No NormalsHEPATITIS B CORE ANTIBODY, [id number] 06:27:00 Test Item Value Reference Range Interpretation Comments HEPATITIS B CORE TOTAL ANTIBODY Nonreactive Nonreactive (BEAKER) (test code = 497) For 1 [id number] 05:50:00 Test Item Value Reference Range Interpretation Comments FERRITIN (BEAKER) (test code = 1588 ng/mL 5-275 H 361) For 1 occurencesACETAMINOPHEN [id number] 05:30:00 Test Item Value Reference Range Interpretation Comments ACETAMINOPHEN LEVEL (BEAKER) (test < ug/mL 10.0-30.0 L code = 344) Therapeutic Range: 10.0-30.0 g/mLToxic Levels: >200.0 g/mLFor 1 occurences [id number]-9-[id number] 05:20:00 Test Item Value Reference Range Interpretation Comments ALPHA-1 ANTITRYPSIN (BEAKER) 266.90 mg/dL 90.00-200.00 H (test code = 502) [id number] 05:17:00 Test Item Value Reference Range Interpretation Comments THYROID STIMULATING HORMONE 0.75 uIU/mL 0.35-4.94 (BEAKER) (test code = 772) HEPATITIS PANEL, [id number] 05:17:00 Test Item Value Reference Range Interpretation Comments HEPATITIS A IGM ANTIBODY (BEAKER) Nonreactive Nonreactive (test code = 498) HEPATITIS B CORE IGM ANTIBODY Nonreactive Nonreactive (BEAKER) (test code = 645) HEPATITIS C ANTIBODY (BEAKER) Nonreactive Nonreactive (test code = 367) HEPATITIS B SURFACE ANTIGEN (2) Nonreactive Nonreactive (BEAKER) (test code = 2585) HIV-1 ANTIGEN WITH HIV-1/2 [id number] 05:17:00 Test Item Value Reference Range Interpretation Comments HIV-1 ANTIGEN WITH HIV 1\T\2 Nonreactive Nonreactive ANTIBODY (2) (BEAKER) (test code = 2586) BASIC METABOLIC [id number] 05:09:00 Test Item Value Reference Range Interpretation [...] APPLICABLE FOR DIALYSIS PATIEN TS. HEPATIC FUNCTION [id number] 05:09:00 Test Item Value Reference Range Interpretation [...] code = > U/L 6-55 H 347) [id number] 05:07:00 Test Item Value Reference Range Interpretation Comments PHOSPHORUS (BEAKER) (test code = 3.6 mg/dL 2.3-4.7 604) [id number] 05:07:00 Test Item Value Reference Range Interpretation [...] H (test code = 364) LACTIC ACID, [id number] 04:58:00 Test Item Value Reference Range Interpretation Comments LACTATE BLOOD ARTERIAL (2) 1.5 mmol/L 0.5-2.2 (BEAKER) (test code = 2874) [id number] 04:56:00 Test Item Value Reference Range Interpretation Comments ETHANOL (BEAKER) (test code = 400) < mg/dL <=10 [id number] 04:54:00 Test Item Value Reference Range Interpretation [...] L (test code = 2590) BLOOD GAS, [id number] 04:53:00 Test Item Value Reference Range Interpretation [...] 30.0 % CBC W/PLT COUNT & AUTO [id number] 04:53:00 Test Item Value Reference Range Interpretation [...] PERCENT (BEAKER) (test code = 2801) CALCIUM, [id number] 04:51:00 Test Item Value Reference Range Interpretation Comments CALCIUM IONIZED (BEAKER) (test 1.12 mmol/L 1.12-1.27 code = 698) PH, BLOOD (BEAKER) (test code = 7.35 1810) PROTHROMBIN [id number] 04:43:00 Test Item Value Reference Range Interpretation [...] is 2.5-3.5 for patients wiht mechanical heart valves.[id number] 04:43:00 Test Item Value Reference Range Interpretation Comments FIBRINOGEN LEVEL (BEAKER) (test 265 mg/dl 225-434 code = 658) [id number] 04:43:00 Test Item Value Reference Range Interpretation [...] for patients wiht mechanical heart valves.ACUTE HEPATITIS [id number] 06:15:00 Test Item Value Reference Range Interpretation [...] HCV Nucl eic Acid Amplification t est (037333).Perfor med At: [facility] [address] [place], [place] [id number] kris Gould MD Ph:[phone] HIV 1 2 ANTIBODY [id number] 06:15:00 Test Item Value Reference Range Interpretation Comments AB HIV 1 2 (test code = NON REACTIVE SCREEN NONREACTIVE [id number]) AG HIV1 P24 (test code = NON REACTIVE P24 NONREACTIVE [id number]) - CT ABD PELVIS [id number] 12:57:00 Name: GINA MARIE [place] : 1965 Age/S: 53 / F [address] [address] [place] Unit #: [id number] Loc: [place] [address] Phys: Brayn Orta MD Acct: [id number] Dis Date: Status: ADM IN PHONE #: [phone] Exam Date: 03/09/2019 1200 FAX #: Reason: abd pain EXAMS: CPT: [id number] CT ABD PELVIS W/CONT 56161 LOCATION: T18 EXAM: CT ABDOMEN AND PELVIS [...] or hydronephrosis is seen. There is no hydroureter.Urinary bladder is distended. Uterus is not clearly [...] CTDI: DLP: PAGE 1 Signed ReportBASIC METABOLIC [id number] 07:37:00 Test Item Value Reference Range Interpretation [...] = CA) 8.7 MG/DL 8.5-10.1 N T4 [id number] 07:37:00 Test Item Value Reference Range Interpretation Comments T4 FREE (test code = T4F) 0.70 NG/DL 0.89-1.76 L THYROID STIMULATING [id number] 07:37:00 Test Item Value Reference Range Interpretation Comments THYROID STIMULATING HORMONE 1.540 mcIU/ML 0.340-4.820 N (test code = TSH) ACUTE HEPATITIS [id number] 07:33:00 Test Item Value Reference Range Interpretation Comments AB HEPATITIS A IGM (test code = HAVMAB) AG HEPATITIS B SURFACE (test code = SCREEN NEGATIVE HBSAG) AB HEPATITIS B CORE IGM (test code = HBCMAB) AB HEPATITIS C (test code = HCVAB) RATIO <0.8 HIV 1 2 ANTIBODY [id number] 07:33:00 Test Item Value Reference Range Interpretation Comments AB HIV 1 2 (test code = NON REACTIVE SCREEN NONREACTIVE [id number]) AG HIV1 P24 (test code = NON REACTIVE P24 NONREACTIVE JAT1I03) GLYCOSYLATED HEMOGLOBIN [id number] 07:26:00 Test Item Value Reference Range Interpretation Comments GLYCOSYLATED HEMOGLOBIN (HA1C) 5.8 % A1C 4.2-6.3 N (test code = GLYHGB) ESTIMATED AVERAGE GLUCOSE (test 120 MG/DLest code = EAG) CBC W/AUTO [id number] 07:21:00 Test Item Value Reference Range Interpretation [...] DIFF/SCN CRITERIA MDIFF) - CT HEAD/BRAIN W/O [id number] 19:39:00 Name: GINA MARIE [facility] : 1965 Age/S: 53 / F [address] [place] Unit #: [id number] Loc: [place] [address] Phys: Maria Morel MD Acct: [id number] Dis Date: Status: ADM IN PHONE #: [phone] Exam Date: 03/08/2019 7656 FAX #: Reason: near syncope EXAMS: CPT: [id number] CT HEAD/BRAIN W/O CONT 32124 CT head History: near syncope Comparison: None [...] RT(R)(CT) CTDI: DLP: Trnscb Date/Time: 03/08/2019 (1938) t.SDR.PMT Orig Print D/T: S: 03/08/2019 (1941) CTDI: DLP: PAGE 1 Signed ReportDRUGS OF ABUSE SCREEN [id number] 19:12:00 Test Item Value Reference Range Interpretation [...] NEGATIVE SCcutoff <300 NG/ML [place]) COMPREHENSIVE METABOLIC [id number] 17:26:00 Test Item Value Reference Range Interpretation [...] 45-117 N TOTAL (test code = ALKP) [id number] 17:26:00 Test Item Value Reference Range Interpretation Comments MAGNESIUM (test code = MAG) 1.9 MG/DL 1.8-2.4 N [id number] 17:26:00 Test Item Value Reference Range Interpretation Comments ALCOHOL (test code = ALC) < 3 MG/DL 0-10 N COMPREHENSIVE METABOLIC [id number] 17:21:00 Test Item Value Reference Range Interpretation [...] TOTAL (test Unit/L 45-117 code = ALKP) [id number] 17:21:00 Test Item Value Reference Range Interpretation Comments MAGNESIUM (test code = MAG) MG/DL 1.8-2.4 [id number] 17:21:00 Test Item Value Reference Range Interpretation Comments ALCOHOL (test code = ALC) MG/DL 0-10 CBC W/AUTO [id number] 17:08:00 Test Item Value Reference Range Interpretation [...] DIFF/SCN CRITERIA MDIFF) - XR CHEST 1 [id number] 16:33:00 Name: GINA MARIE [place] : 1965 Age/S: 53 / F [id number] [address] [place] Unit #: [id number] Loc: [place] [address] Phys: Maria Morel MD Acct: [id number] Dis Date: Status: PRE ER PHONE #: [phone] Exam Date: 03/08/2019 1620 FAX #: Reason: near syncope EXAMS: CPT: [id number] XR CHEST 1 V [id number] Fluoro Time: DAP (Gy m2): Air Kerma [...] PAGE 1 Signed Report Name: GINA MARIE [place] : 1965 Age/S: 53 / F [id number] [place] Unit #: [id number] Loc: [place] [address] Phys: Maria Morel MD Acct: [id number] Dis Date: Status: PRE ER PHONE #: [phone] Exam Date: 03/08/2019 1627 FAX #: Reason: nearsyncope EXAMS: CPT: [id number] XR CHEST 1 V 59908 Fluoro Time: DAP (Gy m2): Air Kerma (mGy): (Continued) Technologist: Nanette Gordon RT(R)(CT) Trnscb Date/Time: 03/08/2019 (8738) [email or web address] Orig Print D/T: S: 03/08/2019 (1119) PAGE 2 Signed Report
[2022-10-05] MEDS ORDERED: NA CHLORIDE 0.9% 1,000 ML ONE ×2 (16:52→19:05)
--- NOTE | 2022-10-05 16:59 | RAD REPORT ---
EXAM DESCRIPTION: RAD - Chest Single View - 10/05/2022 4:45 pm CLINICAL HISTORY: hypoxemia Chest pain. COMPARISON: Chest Single View dated 10/04/2022; Chest Single View dated 09/06/2022; Chest Single View dated 10/30/2021; Chest Single View dated 04/02/2021 FINDINGS: Portable technique limits examination quality. Mild COPD is present. Increased right basilar lung markings likely indicate mild infiltrate/ pneumoni a. The heart is normal in size. No displaced fractures. IMPRESSION: Mild developing right base pneumonia.
[2022-10-05 17:00] LABS: Absolute Lymphocytes (CBC) 1.1 K/uL (0.7-4.9); Hematocrit 33.9 % (36.0-45.0); Lymphocytes % 5.6 % (15.3-44.8); MCV 74.5 fL (80-100); MPV 7.9 fL (7.6-11.3); RBC Red Blood Cell Count 4.56 M/uL (3.86-4.86)
[2022-10-05 17:19] LABS: Albumin 2.9 g/dL (3.4-5.0); Bilirubin Direct 0.2 mg/dL (0-0.2); Bilirubin Total 0.6 mg/dL (0.2-1.0); Protein, Total 6.5 g/dL (6.4-8.2); Protime INR 0.98
[2022-10-05 17:20] LABS: Potassium 4.1 mmol/L (3.5-5.1)
[2022-10-05 17:21] LABS: SARS-CoV-2 Antigen Rapid Res Negative (Negative)
--- NOTE | 2022-10-05 17:58 | RAD REPORT ---
EXAM DESCRIPTION: CT - Head Brain Wo Cont - 10/05/2022 5:30 pm CLINICAL HISTORY: recent fall, head injury, more altered Fall, trauma, head injury COMPARISON: Facial Bones W/ Mpr dated 10/04/2022; Head Brain Wo Cont dated 09/15/2022; Head C Spine C ap Wo Con dated 10/04/2022 TECHNIQUE: All CT scans are performed using dose optimization technique as appropriate and may inclu de automated exposure control or mA/KV adjustment according to patient size. 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 The paranasal sinuses and mastoids are clear. The calvarium is intact. IMPRESSION: No acute intracranial abnormality.
--- NOTE | 2022-10-05 18:09 | EDPHYS ---
Physician Documentation [facility] Name: Pratibha Jennings Age: 57 yrs Sex: Female : 1965 Arrival Date: 10/05/2022 Time: 16:19 Bed 4 Private MD: Henry Lopez ED Physician Rigoberto Carmichael HPI: 10/05 16:51 This 57 yrs old Female presents to ER via Wheelchair with complaints of Altered Mental rn Status. 16:51 The patient presents with decreased mental status, decreased responsiveness. Onset: The rn symptoms/episode began/occurred yesterday. Possible causes: unknown. Current symptoms: In the emergency department the patient's symptoms are unchanged from the initial presentation. The patient has experienced similar episodes in the past. The patient has been recently seen at the [facility] Emergency Department. Seen here last night after found on ground, was cleared and discharged home. Returns for worsening AMS, confusion. Recently taken off most of her meds recently, but reports turned to ETOH and taking suboxone. . Historical: - Allergies: 16:33 Iodine; topical; jh5 16:33 Latex, Natural Rubber; jh5 - PMHx: 16:33 ADD/ADHD; Back pain; Chronic pain; Degenerative disc disease; hepatic encephalopathy; jh5 Hyperlipidemia; Hypertension; - PSHx: 16:33 Disc removal; Left clavicle; Left knee replacement; Left wrist surgery; Right knee jh5 replacement; Spinal surgery; - Immunization history:: Adult Immunizations up to date. - Social history:: Smoking status: . - Family history:: not pertinent. - Hospitalizations: : No recent hospitalization is reported. ROS: 16:51 Constitutional: Negative for fever, chills, and weight loss, Eyes: Negative for injury, rn pain, redness, and discharge, Neck: Negative for injury, pain, and swelling, Cardiovascular: Negative for chest pain, palpitations, and edema, Respiratory: Negative for shortness of breath, cough, wheezing, and pleuritic chest pain, Abdomen/GI: Negative for abdominal pain, nausea, vomiting, diarrhea, and constipation, Back: Negative for injury and pain, MS/Extremity: Negative for injury and deformity, Skin: Negative for injury, rash, and discoloration, Neuro: Negative for headache, numbness, tingling, and seizure. Exam: 16:51 Constitutional: Thin female, malnourished, somnolent, awakens to voice Head/Face: rn Normocephalic, atraumatic. Eyes: Pupils equal round and reactive to light, extra-ocular motions intact. ENT: very dry MM Cardiovascular: Regular rate and rhythm. No pulse deficits. Respiratory: No increased work of breathing, no retractions or nasal flaring. Abdomen/GI: Soft, non-tender Skin: Warm, dry MS/ Extremity: Pulses equal, no cyanosis. Neuro: Somnolent, awakens to voice, moves all 4 extremities with 3+/5 strength, non-lateralizing weakness. + left lower facial droop. NO upper facial weakness. Oriented to person and place, not time. 17:27 ECG was reviewed by the Attending Physician. rn Vital Signs: 16:31 BP 78 / 54; Pulse 83; Resp 18; Temp 98.6; Pulse Ox 88% on R/A; Weight 44.45 kg; Height jh5 5 ft. 5 in. (165.10 cm); 16:56 BP 89 / 61; Pulse 80; Resp 17; Pulse Ox 100% on 3 lpm NC; tw2 18:03 BP 103 / 65; Pulse 79; Resp 16; Pulse Ox 100% on 3 lpm NC; tw2 19:00 BP 88 / 63; Pulse 79; Resp 14; Pulse Ox 100% ; vc1 19:35 BP 95 / 59; Pulse 78; Resp 11; Pulse Ox 100% ; vc1 20:00 BP 88 / 63; Pulse 75; Resp 9; Pulse Ox 100% ; vc1 21:00 BP 89 / 63; Pulse 72; Resp 8; Pulse Ox 100% ; vc1 22:00 BP 86 / 65; Pulse 72; Resp 15; Pulse Ox 100% ; vc1 22:45 BP 108 / 66; Pulse 74; Resp 14; Pulse Ox 100% ; vc1 10/06 00:00 BP 102 / 67; Pulse 72; Resp 13; Temp 97.5; Pulse Ox 100% ; vc1 00:00 vc1 04:30 BP 96 / 69; Pulse 80; Resp 18; Pulse Ox 100% on 2 lpm NC; vc1 10/05 16:31 Body Mass Index 16.31 (44.45 kg, 165.10 cm) jh5 00:00 Meditech down; ER hold vc1 04:30 Meditech down; ER hold vc1 Procedures: 10/05 18:49 Lumbar Puncture: Patient placed in left lateral decubitus position. Prepped with rn Betadine. Draped using sterile technique. Collected 8 ml's of clear fluid. Sample sent to lab. Puncture site dressed with band aid, Patient tolerated well. opening pressure normal. MDM: 16:21 Patient medically screened. rn 18:04 Differential Diagnosis: CVA, electrolyte abnormality, intracranial bleed, overdose, rn pneumonia, sepsis, UTI, volume depletion. Data reviewed: vital signs, nurses notes, lab test result(s), radiologic studies, and as a result, I will admit patient. Counseling: I had a detailed discussion with the patient and/or guardian regarding: the historical points, exam findings, and any diagnostic results supporting the discharge/admit diagnosis, lab results, radiology results, the need for further work-up and treatment in the hospital. Response to treatment: the patient's symptoms have mildly improved after treatment, and as a result, I will admit patient. Admission orders: after a detailed discussion of the patient's condition and case, the admit orders are written by me. ED course: Pt meets criteria for severe sepsis with septic shock, source is pneumonia, has 2 BP less than 90, lactate pending, 30ml/kg bolus ordered, blood cultures ordered, abx ordered to be given after blood cultures. Will admit to hospitalist service.. 10/05 16:33 Order name: CBC with Diff; Complete Time: 17:17 rn 10/05 16:33 Order name: Basic Metabolic Panel; Complete Time: 17:33 rn 10/05 16:33 Order name: Urine Drug Screen rn 10/05 16:33 Order name: AMMONIA; Complete Time: 17:33 rn 10/05 16:33 Order name: LFT's; Complete Time: 17:33 rn 10/05 16:34 Order name: PT-INR; Complete Time: 17:33 rn 10/05 16:34 Order name: Ptt, Activated; Complete Time: 17:33 rn 10/05 16:34 Order name: ETOH Level; Complete Time: 17:46 rn 10/05 16:35 Order name: Acetaminophen; Complete Time: 17:33 rn 10/05 16:35 Order name: Salicylate; Complete Time: 17:33 rn 10/05 16:39 Order name: SARS RAPID; Complete Time: 17:33 rn 10/05 17:12 Order name: Glucose, Ancillary Testing; Complete Time: 17:17 EDMS 10/05 17:34 Order name: Blood Culture Adult (2) rn 10/05 17:34 Order name: Lactate; Complete Time: 18:53 rn 10/05 16:33 Order name: CT Head Brain wo Cont; Complete Time: 18:03 rn 10/05 16:33 Order name: XRAY Chest (1 view); Complete Time: 17:17 rn 10/05 18:50 Order name: Csf Culture rn 10/05 18:50 Order name: Fluid Cell Count,Body rn 10/05 18:50 Order name: Spinal Fluid Profile rn 10/06 00:20 Order name: Urine Dipstick-Ancillary EDMS 10/06 06:17 Order name: CBC with Automated Diff EDMS 10/06 06:22 Order name: Comprehensive Metabolic Panel EDMS 10/06 06:22 Order name: T4 Free EDMS 10/06 06:22 Order name: Thyroid Stimulating Hormone EDMS 10/06 07:09 Order name: Manual Differential EDMS 10/05 16:33 Order name: IV Start; Complete Time: 16:50 rn 10/05 16:33 Order name: EKG; Complete Time: 16:33 rn 10/05 16:33 Order name: EKG - Nurse/Tech; Complete Time: 16:50 rn 10/05 16:33 Order name: Cardiac monitoring; Complete Time: 16:50 rn 10/05 16:33 Order name: O2 Sat Monitoring; Complete Time: 16:50 rn 10/05 16:34 Order name: Glucose Level; Complete Time: 17:23 rn 10/05 16:35 Order name: Labs collected and sent; Complete Time: 16:50 rn 10/05 16:35 Order name: Urine Dipstick-Ancillary (obtain specimen); Complete Time: 01:04 rn 10/05 18:50 Order name: LP Consents; Complete Time: 19:03 rn 10/05 18:50 Order name: LP Setup; Complete Time: 19:03 rn EC:27 Rate is 80 beats/min. Rhythm is regular. QRS [place] is Normal. [place] interval is normal. QRS rn interval is normal. QT interval is prolonged at 484 msec. No Q waves. T waves are Normal. No ST changes noted. Clinical impression: NSR w/ Non-specific ST/T Changes. Interpreted by me. Reviewed by me. Administered Medications: 16:56 Drug: NS 0.9% 1000 ml Route: IV; Rate: 1000 ml; Site: left antecubital; tw2 18:00 Follow up: Response: No adverse reaction; IV Status: Completed infusion; IV Intake: tw2 1000ml 19:08 Drug: NS 0.9% (30 ml/kg) 30 ml/kg Route: IV; Rate: bolus; Site: left antecubital; tw2 20:05 Follow up: IV Status: Completed infusion; IV Intake: 1000ml vc1 19:37 Drug: Rocephin (cefTRIAXone) 1 grams Route: IV; Rate: calculated rate; Site: left vc1 antecubital; 20:00 Follow up: IV Status: Completed infusion; IV Intake: 10ml vc1 19:37 Drug: Zithromax (azithromycin) 500 mg Route: IVPB; Infused Over: 1 hrs; Site: left vc1 antecubital; 21:15 Follow up: IV Status: Completed infusion; IV Intake: 187.5ml vc1 10/06 01:15 Drug: Zosyn (piperacillin-tazobactam) 3.375 grams Route: IVPB; Infused Over: 60 mins; vc1 Site: left hand; 04:38 Follow up: Response: No adverse reaction; IV Intake: 100ml vc1 04:37 Drug: Lidoderm Patch 5 % (700 mg/patch) 1 patches {Note: Lower back.} Route: Topical; vc1 Site: affected area; Point of Care Testing: Blood Glucose: 10/05 17:00 Blood Glucose: 106 mg/dL; tw2 Ranges: Critical Glucose Levels:Adult <50 mg/dl or >400 mg/dl <40 mg/dl or >180 mg/dl Disposition: 18:04 Critical Care:. 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 Total time: 35 minutes rn Signatures: Dispatcher [employer] EDKaylin Kidd Martha, RN RN Rigoberto Lam MD MD rn Attema, Lee, [employer]-C [employer]-Courtney1 Mayra Dailey RN RN tw2 Deb Garay, RN RN jh5 Suzanna Grier RN RN vc1 Iona Brooks, PA-C PA-C sb4 Corrections: (The following items were deleted from the chart) 20:13 18:08 Telemetry/MedSurg (Inpatient) rn 20:13 18:08 rn [place] 10/06 10:38 10/05 20:13 [facility] ER HOLD [facility] 10/06 10:38 10/05 20:13 ERHOLD- [facility]
--- NOTE | 2022-10-05 18:09 | ER ---
Nurse's Notes [facility] Name: Pratibha Jennings Age: 57 yrs Sex: Female : 1965 Arrival Date: 10/05/2022 Time: 16:19 Bed 4 Private MD: Henry Lopez Diagnosis: Severe sepsis with septic shock;Pneumonia, unspecified organism;Altered mental status, unspecified;Dehydration Presentation: 10/05 16:31 Chief complaint: Patient states: worsening of chronic condition. Coronavirus screen: [facility] Vaccine status: Patient reports receiving the 2nd dose of the covid vaccine. Client denies travel out of the [place] in the last 14 days. Ebola Screen: Patient negative for fever greater than or equal to 101.5 degrees Fahrenheit, and additional compatible Ebola Virus Disease symptoms Patient denies exposure to infectious person. Patient denies travel to an Ebola-affected area in the 21 days before illness onset. Initial Sepsis Screen: Does the patient meet any 2 criteria? No. Patient's initial sepsis screen is negative. Does the patient have a suspected source of infection? No. Patient's initial sepsis screen is negative. Risk Assessment: Do you want to hurt yourself or someone else? Patient reports no desire to harm self or others. 16:31 Method Of Arrival: Wheelchair [facility] 16:31 Acuity: NUSRAT 3 jh5 16:37 Acuity: NUSRAT 2 iw 19:00 Onset of symptoms is unknown. vc1 Triage Assessment: 16:33 General: Appears slender, unkempt, Behavior is flat, inappropriate for age. Pain: 5 Denies pain. Neuro: Denies. Historical: - Allergies: 16:33 Iodine; topical; 5 16:33 Latex, Natural Rubber; jh5 - PMHx: 16:33 ADD/ADHD; Back pain; Chronic pain; Degenerative disc disease; hepatic encephalopathy; jh5 Hyperlipidemia; Hypertension; - PSHx: 16:33 Disc removal; Left clavicle; Left knee replacement; Left wrist surgery; Right knee 5 replacement; Spinal surgery; - Immunization history:: Adult Immunizations up to date. - Social history:: Smoking status: . - Family history:: not pertinent. - Hospitalizations: : No recent hospitalization is reported. Screenin:28 Abuse screen: Denies threats or abuse. Nutritional screening: No deficits noted. tw2 Tuberculosis screening: No symptoms or risk factors identified. Fall Risk Secondary diagnosis (15 points) impaired mobility. 10/06 06:06 Patient has been NPO before screening. The patient is alert, able to follow commands. vc1 The patient does not exhibit slurred or garbled speech The patient is not exhibiting difficulty speaking. The patient does not exhibit difficulty understanding words. The patient is able to swallow own secretions with no drooling or need for suction. Patient tolerated one teaspoon of water. No drooling, immediate coughing, gurgling, or clearing of the throat was noted. The patient did not tolerate 90mL of water. Drooling, immediate coughing, gurgling, or clearing of the throat was noted. Bedside swallow screening discontinued. Patient kept NPO until cleared by Speech Therapy or Physician. The patient failed the bedside swallow screening. The patient will be kept NPO until cleared by Speech Therapy or Physician. Assessment: 10/05 18:01 Reassessment: missed attempt at 23g for lactate and 1st blood cultures to RIGHT wrist. tw2 pressure dressing applied. lab at bedside at this time for attempt of blood cultures. 18:04 Reassessment: Patient and/or family updated on plan of care and expected duration. Pain tw2 level reassessed. pt more alert and oriented to person,place and situation. answering appropriately at this time. Vital Signs: 16:31 BP 78 / 54; Pulse 83; Resp 18; Temp 98.6; Pulse Ox 88% on R/A; Weight 44.45 kg; Height jh5 5 ft. 5 in. (165.10 cm); 16:56 BP 89 / 61; Pulse 80; Resp 17; Pulse Ox 100% on 3 lpm NC; tw2 18:03 BP 103 / 65; Pulse 79; Resp 16; Pulse Ox 100% on 3 lpm NC; tw2 19:00 BP 88 / 63; Pulse 79; Resp 14; Pulse Ox 100% ; vc1 19:35 BP 95 / 59; Pulse 78; Resp 11; Pulse Ox 100% ; vc1 20:00 BP 88 / 63; Pulse 75; Resp 9; Pulse Ox 100% ; vc1 21:00 BP 89 / 63; Pulse 72; Resp 8; Pulse Ox 100% ; vc1 22:00 BP 86 / 65; Pulse 72; Resp 15; Pulse Ox 100% ; vc1 22:45 BP 108 / 66; Pulse 74; Resp 14; Pulse Ox 100% ; vc1 10/06 00:00 BP 102 / 67; Pulse 72; Resp 13; Temp 97.5; Pulse Ox 100% ; vc1 00:00 vc1 04:30 BP 96 / 69; Pulse 80; Resp 18; Pulse Ox 100% on 2 lpm NC; vc1 10/05 16:31 Body Mass Index 16.31 (44.45 kg, 165.10 cm) jh5 00:00 Meditech down; ER hold vc1 04:30 Meditech down; ER hold vc1 ED Course: 10/05 16:19 Patient arrived in ED. as 16:19 Henry Lopez MD is Private Physician. as 16:20 Bed in low position. Call light in reach. Adult w/ patient. 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 Pulse tw2 ox on. NIBP on. 16:21 Rigoberto Carmichael MD is Attending Physician. rn 16:28 Arm band placed on. tw2 16:33 Triage completed. jh5 16:40 Missed attempt(s): 22 gauge in left forearm. Pratibha Frausto RN. Bleeding controlled, band tw2 aid applied, catheter tip intact. 16:47 XRAY Chest (1 view) In Process Unspecified. EDMS 16:48 Inserted saline lock: 22 gauge in left antecubital area, using aseptic technique. Blood tw2 collected. 16:55 Mayra Dailey RN is Primary Nurse. tw2 16:56 SARS RAPID Sent. tw2 17:32 CT Head Brain wo Cont In Process Unspecified. EDMS 18:08 Mukund Woodard MD is Hospitalizing Provider. rn 19:03 Blood Culture Adult (2) Sent. tw2 22:49 Patient admitted, IV remains in place. vc1 22:49 Assist provider with lumbar puncture: Set up LP tray. Performed by Rigoberto Carmichael MD vc1 Procedure was successful. Done at 1845 on previous shift. Pt to lie flat for 1 hour. 10/06 01:43 Oral care given. ll3 Administered Medications: 10/05 16:56 Drug: NS 0.9% 1000 ml Route: IV; Rate: 1000 ml; Site: left antecubital; tw2 18:00 Follow up: Response: No adverse reaction; IV Status: Completed infusion; IV Intake: tw2 1000ml 19:08 Drug: NS 0.9% (30 ml/kg) 30 ml/kg Route: IV; Rate: bolus; Site: left antecubital; tw2 20:05 Follow up: IV Status: Completed infusion; IV Intake: 1000ml vc1 19:37 Drug: Rocephin (cefTRIAXone) 1 grams Route: IV; Rate: calculated rate; Site: left vc1 antecubital; 20:00 Follow up: IV Status: Completed infusion; IV Intake: 10ml vc1 19:37 Drug: Zithromax (azithromycin) 500 mg Route: IVPB; Infused Over: 1 hrs; Site: left vc1 antecubital; 21:15 Follow up: IV Status: Completed infusion; IV Intake: 187.5ml vc1 10/06 01:15 Drug: Zosyn (piperacillin-tazobactam) 3.375 grams Route: IVPB; Infused Over: 60 mins; vc1 Site: left hand; 04:38 Follow up: Response: No adverse reaction; IV Intake: 100ml vc1 04:37 Drug: Lidoderm Patch 5 % (700 mg/patch) 1 patches {Note: Lower back.} Route: Topical; vc1 Site: affected area; Medication: 10/05 16:56 VIS not applicable for this client. tw2 Point of Care Testing: Blood Glucose: 17:00 Blood Glucose: 106 mg/dL; tw2 Ranges: Intake: 18:00 IV: 1000ml; Total: 1000ml. tw2 20:00 IV: 10ml; Total: 1010ml. vc1 20:05 IV: 1000ml; Total: 2010ml. vc1 21:15 IV: 188ml; Total: 2198ml. vc1 10/06 04:38 IV: 100ml; Total: 2298ml. vc1 Outcome: 10/05 18:08 Decision to Hospitalize by Provider. rn 22:50 Admitted to ICU room ER HOLD. vc1 22:50 Condition: stable 22:50 Instructed on the need for admit. 10/06 12:28 Patient left the ED. ph Signatures: Dispatcher [employer] Loraine Turner Irene, RN RN Rigoberto Carmichael MD MD rn Hall, Patricia, RN RN Mayra Dailey RN RN [facility] Deb Garay RN RN [facility] Jackie Richards RN RN 3 Suzanna Grier RN RN vc1 Corrections: (The following items were deleted from the chart) 10/05 18:03 18:01 Reassessment: missed attempt at 23g for lactate and 1st blood cultures to RIGHT tw2 wrist. pressure dressing applied. lab at bedside at this time tw2
[2022-10-05 19:20] LABS: CSF Glucose 78 mg/dL (40-70)
[2022-10-05] MEDS ORDERED: CEFTRIAXONE 1000 MG/VIAL ONE (19:20)
[2022-10-05] MEDS ORDERED: NA CHLORIDE 0.9% 250 ML ONE ×2 (19:21→22:02)
[2022-10-05] MEDS ORDERED: AZITHROMYCIN 500 MG INJ IVPB ONE (19:21)
[2022-10-05 19:33] LABS: Appearance CLEAR (CLEAR); Body Fluid Source CSF; Color of fluid Colorless (COLORLESS)
[2022-10-05 19:37] LABS: Appearance CLEAR (CLEAR); Body Fluid Source CSF; Body Fluid WBC 7 /mm^3; Color of fluid Colorless (COLORLESS); Fluid Total Volume 8 ml
[2022-10-05 19:39] LABS: Body Fluid WBC 9 /mm^3
--- NOTE | 2022-10-05 21:26 | P.HP ---
Certification for Inpatient Patient admitted to: Inpatient With expected LOS: >2 Midnights Patient will require the following post-hospital care: None Practitioner: I am a practitioner with admitting privileges, knowledge of patient current condition, hospital course, and medical plan of care. 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 reports that patient was taken off of all of her medications du ring her last admission approximately 3 weeks ago and since then she has been self medicating with alcohol, Suboxone, THC. Today he noticed she was more altered and weak. She was brought into the emergency department for evaluation her labs were significant for leukocytosis white blood cell count of 19.4 AST 76 ALT 166 but with downtrending from previous, alcohol level less than 10 acetaminophen less than 2.5 salicylate less than 2.2 UDS pending that last night was positive for THC in the emergency department. CT head negative for acute findings chest x-ray shows developing right lower lobe pneumonia given patient's altered mental status, leukocytosis LP was performed fluid so far is colorless, clear not xanthochromic with 78 glucose, 44 total protein. Her initial blood pressure was 78/54 followed by 89/61 which meets criteria for septic shock, she was given 30 cc/kg IV fluid bolus blood pressure has improved significantly she is started on antibiotics Rocephin/Zithromax given her shortness is pneumonia possible aspiration pneumonia. ED read wishes to admit for further valuation and management. - Past Medical/Surgical History Diabetic: No -: htn -: chronic back pain -: anxiety -: hyperlipidemia -: degenerative disc disease -: ADD/ADHD -: chronic back pain -: spinal implant stimulator -: back surgery (herniated disc) -: left wrist -: Clavicle sx 10/16 Psychosocial/ Personal History: Patient is . - Family History Mother -: Hypertension, Diabetes Notes: hyperlipidemia - Social History Alcohol use: Yes CD- Drugs: Yes Caffeine use: Yes Place of Residence: Home <Alejandro Bryan Von Lutz - Last Filed: 10/05/22 21:21> Date of Service: 10/06/22 <Mukund Woodard - Last Filed: 10/06/22 10:28> Allergies Latex, Natural Rubber Allergy (Verified 09/16/22 02:43) Hives/Rash TOPICAL IODINE Allergy (Mild, Uncoded 09/16/22 02:43) Hives/Rash Home Medications: Amlodipine [Norvasc*] 5 mg PO DAILY 03/13/20 Dexlansoprazole [Dexlansoprazole Dr] 60 mg PO DAILY 09/06/22 Sucralfate [Carafate*] 1 tab PO BID 09/06/22 Lidocaine [Lidocaine Pain Relief] 3 each TP BID 09/07/22 Fluoxetine HCl [Prozac] 40 mg PO BID 09/16/22 Ensure Enlive 237 ml PO BID #60 can 09/18/22 Trazodone [Desyrel*] 50 mg PO BEDTIME PRN PRN #30 tab 09/18/22 Gabapentin 600 mg PO TID 10/06/22 Lactulose 30 ml PO BID 10/06/22 Ondansetron HCl 4 mg PO Q8HR 10/06/22 Topiramate 50 mg PO BID 10/06/22 hydrOXYzine HCL [Atarax] 25 mg PO TID 10/06/22 methocarbamoL [Methocarbamol] 500 mg PO TID 10/06/22 Review of Systems 10-point ROS is otherwise unremarkable General: Weakness, Malaise Respiratory: Shortness of Breath Neurological: Confusion, As per HPI <Alejandro Bryan - Last Filed: 10/05/22 21:21> Physical Examination - Physical Exam General: Alert, In no apparent distress, Oriented x2, Confused HEENT: Atraumatic, PERRLA, Mucous membr. moist/pink, EOMI, Sclerae nonicteric Neck: Supple, 2+ carotid pulse no bruit, No LAD, Without JVD or thyroid abnormality Respiratory: Normal air movement, Diminished Cardiovascular: Regular rate/rhythm, Normal S1 S2 Capillary refill: <2 Seconds Gastrointestinal: Normal bowel sounds, No tenderness Musculoskeletal: No tenderness Integumentary: No rashes Neurological: Normal strength at 5/5 x4 extr, Normal tone, Sensation intact, Normal affect - Studies Laboratory Data (last 24 hrs) 10/05/22 16:48: PT 10.8, INR 0.98, APTT 24.4 10/05/22 16:48: Sodium 133 L D, Potassium 4.1 D, BUN 19 H, Creatinine 1.26, Glucose 131 H, Total Bilirubin 0.6, AST 76 H, ALT 166 H, Alkaline Phosphatase 138 H 10/05/22 16:48: WBC 19.40 H, Hgb 10.8 L, Hct 33.9 L, Plt Count 297 Microbiology Data (last 24 hrs): 10/05/22 18:55 Cerebral Spinal Fluid Gram Stain - Final <Alejandro Bryan - Last Filed: 10/05/22 21:21> - Studies Laboratory Data (last 24 hrs) 10/05/22 16:48: PT 10.8, INR 0.98, APTT 24.4 10/05/22 16:48: Sodium 133 L D, Potassium 4.1 D, BUN 19 H, Creatinine 1.26, Glucose 131 H, Total Bilirubin 0.6, AST 76 H, ALT 166 H, Alkaline Phosphatase 138 H 10/05/22 16:48: WBC 19.40 H, Hgb 10.8 L, Hct 33.9 L, Plt Count 297 Microbiology Data (last 24 hrs): 10/05/22 18:55 Cerebral Spinal Fluid Gram Stain - Final 10/05/22 18:25 Blood - Blood Anaerobic Blood Culture - Final 10/05/22 18:06 Blood - Blood Anaerobic Blood Culture - Final <Mukund Woodard - Last Filed: 10/06/22 10:28> Assessment and Plan - Plan Assessment: Septic shock secondary to right lower lobe pneumoniapossible aspiration Metabolic encephalopathy related to septic shock, polypharmacy Chronic pain on Suboxone Hypertensioncurrently with hypotension Hyperlipidemia Plan: Septic shock secondary to right lower lobe pneumoniapossible aspiration: Continue broad-spectrum antibiotics with vancomycin/Zosyn for time being given septic shock, blood cultures were obtained prior to administration of antibiotics as well as LP fluid/culture. Continue with incentive spirometry, supplemental oxygen as necessary. There is some concern for aspiration we will keep patient n.p.o. at this time perform bedside swallow and speech consult in place. Metabolic encephalopathy related to septic shock, polypharmacy: Continue as above, has been unsure of what medications or substances patient has been using at home, she does vape THC, UDS was positive for THC he also believes that she has been drinking periodically over the course of the last few days or weeks but EtOH level has been 0 during the past 2 visits. Patient has had work-up for similar in the past with CT, MRI which were all negative. We will also consult neurology for further evaluation. Chronic pain on Suboxone: Hold medication at this time given hypertension. Restart when appropriate. Hypertensioncurrently with hypotension: Hold antihypertensive agents given low blood pressure. Hyperlipidemia: Hold statin given elevated AST/ALT. DVT PPX: Lovenox Code status: Full Discharge Plan: Home Plan to discharge in: Greater than 2 days - Advance Directives Does patient have a Living Will: Yes Does patient have a Durable POA for Healthcare: Yes - Code Status/Comfort Care Code Status Assessed: Yes (Full code) Critical Care: No Time Spent Managing Pts Care (In Minutes): 70 <Alejandro Bryan - Last Filed: 10/05/22 21:21> Physician Review: Patient Assessed, Agree with Above Assessment and Plan <Mukund Woodard - Last Filed: 10/06/22 10:28>
[2022-10-05] MEDS ORDERED: ONDANSETRON 4 MG/2 ML VIAL IV PRN (21:55)
[2022-10-05] MEDS ORDERED: VANCOMYCIN 1 GM in NA CHLORIDE 0.9% 250 ML IVPB SCH (21:55)
[2022-10-05] MEDS ORDERED: VANCOMYCIN 750 MG in NA CHLORIDE 0.9% 150 ML IVPB SCH (22:00)
[2022-10-05] MEDS ORDERED: VANCOMYCIN 1 GM/VIAL ONE (22:02)
[2022-10-05] MEDS ORDERED: Ringers Lactate 1,000 ML IV ONE (22:02)
[2022-10-05] MEDS: Ringers Lactate 1,000 ML IV SCH (22:10)
[2022-10-06 00:20] LABS: Urine Blood Negative (Negative); Urine Glucose Negative (Negative); Urine Protein Negative (Negative); Urine Specific Gravity 1.015 (1.005-1.030)
[2022-10-06] MEDS: PIPER TAZO 3.375 GM in NA CHLORIDE 0.9% 100 ML IV SCH ×3 (01:00→16:32)
[2022-10-06] MEDS ORDERED: PIPERACIL/TAZO 3.375 GM VIAL IV ONE ×2 (01:41→09:56)
[2022-10-06] MEDS ORDERED: NA CHLORIDE 0.9% 100 ML IV ONE ×2 (01:41→09:56)
[2022-10-06] MEDS ORDERED: LIDOCAINE 4% PATCH ONE (04:32)
[2022-10-06 05:49] LABS: Barbiturates NEGATIVE (NEGATIVE); Benzodiazepines NEGATIVE (NEGATIVE); Cocaine NEGATIVE (NEGATIVE); METHAMPHETAM NEGATIVE (NEGATIVE); Methadone NEGATIVE (NEGATIVE); Opiates NEGATIVE (NEGATIVE); Phencyclidine NEGATIVE (NEGATIVE); THC Cannibis POSITIVE (NEGATIVE)
[2022-10-06 05:53] LABS: Absolute Lymphocytes (CBC) 1.3 K/uL (0.7-4.9); Hematocrit 31.3 % (36.0-45.0); Lymphocytes % 8.2 % (15.3-44.8); MCV 74.9 fL (80-100); MPV 7.7 fL (7.6-11.3); RBC Red Blood Cell Count 4.18 M/uL (3.86-4.86)
[2022-10-06] MEDS: Ringers Lactate 1,000 ML IV SCH ×3 (06:20→21:55)
[2022-10-06 06:21] LABS: Albumin 2.5 g/dL (3.4-5.0); Bilirubin Total 0.6 mg/dL (0.2-1.0); Potassium 3.6 mmol/L (3.5-5.1); Protein, Total 5.8 g/dL (6.4-8.2); Thyroid Stimulating Hormone 0.368 uIU/mL (0.360-3.740)
[2022-10-06 06:22] VITALS: BMI 16.2
[2022-10-06] MEDS ORDERED: Ringers Lactate 1,000 ML IV ONE (06:22)
[2022-10-06 07:09] LABS: Anisocytosis SLIGHT; Blood Morphology Comment NOTED (NOT SEEN); Platelet Estimate ADEQ
[2022-10-06] MEDS: ENOXAPARIN 40 MG/0.4 ML SQ SCH (09:00)
[2022-10-06] MEDS ORDERED: ENOXAPARIN 40 MG/0.4 ML SQ ONE (09:56)
--- NOTE | 2022-10-06 10:38 | P.PN ---
Subjective Date of Service: 10/06/22 Chief Complaint: Septic shock, pneumonia No acute events since admission. She appears very confused this morning. She is able to tell me her name and her location, but when asked why she is here, she replies, "because I fell down and broke my applesauce." Review of Systems is unable to be obtained Physical Examination - Vital Signs Temperature: 97.9 F Blood Pressure: 113/73 Pulse: 75 Respirations: 15 Pulse Ox (%): 100 - Physical Exam General: Alert, Oriented x2 HEENT: Atraumatic, Mucous membr. moist/pink, EOMI, Sclerae nonicteric Neck: Supple Respiratory: Diminished, Rhonchi/gurgles (RLL) Cardiovascular: No edema, Regular rate/rhythm, Normal S1 S2, No gallops, No rubs, No murmurs Gastrointestinal: Normal bowel sounds, Soft and benign, Non-distended, No tenderness, No rebound, No guarding Musculoskeletal: No clubbing Integumentary: No rashes Neurological: Other (confused) - Studies Laboratory Data (last 24 hrs) 10/05/22 16:48: PT 10.8, INR 0.98, APTT 24.4 10/05/22 16:48: Sodium 133 L D, Potassium 4.1 D, BUN 19 H, Creatinine 1.26, Glucose 131 H, Total Bilirubin 0.6, AST 76 H, ALT 166 H, Alkaline Phosphatase 138 H 10/05/22 16:48: WBC 19.40 H, Hgb 10.8 L, Hct 33.9 L, Plt Count 297 Microbiology Data (last 24 hrs): 10/05/22 18:55 Cerebral Spinal Fluid Gram Stain - Final 10/05/22 18:25 Blood - Blood Anaerobic Blood Culture - Final 10/05/22 18:06 Blood - Blood Anaerobic Blood Culture - Final Assessment And Plan - Plan # Concern for Septic Shock secondary to Right Lower Lobe Pneumonia (Aspiration?) Upon my evaluation, she is not meeting SIRS criteria. However, she presented with a blood pressure of 78/54 as well as leukocytosis and evidence of pneumonia. Septic shock was suspected by admitting provider due to two SBP < 90 mmHg. Plan: - Sepsis order set was initiated - Initial Lactate was 1.8 - Blood cultures drawn before antibiotics were given - Broad spectrum antibiotics started: Vancomycin + Piperacillin-Tazobactam - In regards to fluids: - 30 mL/kg of IV Normal Saline was given based on patient's actual body we ight - Barium swallow requested to evaluate for aspiration risk - Encouraged incentive spirometry - Sepsis reassessment completed by Alejandro Bryan NP # Acute Toxic Metabolic Encephalopathy likely secondary to above # Substance Use Disorder (THC) # Moderate Right Carotid Artery Stenosis - Evaluation thus far: - Labs (10/06) = Na+ 139, Ca2+ 8.2, CO2 23, Glucose 83, Ammonia <15, BUN 12, Vitamin B12 pending, TSH 0.368 - Urine drug screen = positive for THC - Ethanol level = < 10 - Blood cultures x 2 drawn - Urinalysis = positive nitrite - CT head = "no acute intracranial abnormality." - Medication review = will review home list once available - Management plan: - If neurostimulator is MRI compatible, will obtain MRI + MRA head/neck to evaluate for CVA - Continue treatment for pneumonia and monitor mental status - Thiamine 100 mg IV daily - Substance counseling cessation when able # Chronic Pain Syndrome on Buprenorphine-Naloxone s/p Neurostimulator - Hold home suboxone while hypotensive - Outpatient Pain Medicine physician = Dr. Luis Shields # Hypertension - Hold home medications # Elevated LFTs with Hepatic Steatosis # Hyperlipidemia - Hold home statin given elevated LFTs Mukund Woodard M.D.
--- NOTE | 2022-10-06 15:00 | RAD REPORT ---
EXAM DESCRIPTION: RAD - Barium Swallow Modified - 10/06/2022 2:46 pm CLINICAL HISTORY: swallow eval/ recommended by speech therapy COMPARISON: None. TECHNIQUE: The patient was given liquid, semi-solid and solid forms of barium. Lateral view fluorosc opic imaging was performed in conjunction with speech pathology service. FINDINGS: Cineloop acquisitions: 18 Fluoro time: 1:55 min LARYNGEAL PENTRATION: HONEY CLEARED , NECTAR AND THIN NOT CLEARED , INCONSISTTENTLY CLEARED PHARYNGEAL RESIDUE: VALLECULAR, PYRIFORM, OTHER :REDUCED PAHARYNGEAL AND BOT CONTRACTION, SWALLOW DELAY, REDUCED UES OPENING , SLOW UPPER ESOPH EGAL EMPTY IMPRESSION: Modified barium swallow as summarized above and fully detailed on speech pathology repor tRigoberto
[2022-10-06 18:07] LABS: Urine RBC <5 /HPF (None Seen)
[2022-10-06] MEDS: LIDOCAINE 4% PATCH TOP SCH (20:10)
[2022-10-06] MEDS ORDERED: VANCOMYCIN 750 MG in NA CHLORIDE 0.9% 150 ML IVPB SCH (22:00)
[2022-10-06] MEDS: VANCOMYCIN 1 GM in NA CHLORIDE 0.9% 250 ML IVPB SCH (22:00)
[2022-10-07] MEDS: PIPER TAZO 3.375 GM in NA CHLORIDE 0.9% 100 ML IV SCH ×3 (00:16→16:00)
--- NOTE | 2022-10-07 00:20 | P.PN ---
Date of Service: 10/05/22 Sepsis reassessment complete, BP improved MAP>65
[2022-10-07 03:43] LABS: Absolute Lymphocytes (CBC) 1.6 K/uL (0.7-4.9); Hematocrit 26.5 % (36.0-45.0); Lymphocytes % 14.8 % (15.3-44.8); MCV 73.9 fL (80-100); MPV 8.1 fL (7.6-11.3); RBC Red Blood Cell Count 3.58 M/uL (3.86-4.86)
[2022-10-07 04:46] LABS: Albumin 1.9 g/dL (3.4-5.0); Bilirubin Total 0.5 mg/dL (0.2-1.0); Potassium 3.2 mmol/L (3.5-5.1); Protein, Total 4.6 g/dL (6.4-8.2)
--- NOTE | 2022-10-07 06:34 | EKG ---
Test Date: 2022-10-05 Test Time: 16:47:29 Breakdown Person: RUBY MEASUREMENT RESULTS: Intervals: Rate: 80 DE: 130 QRSD: 72 QT: 420 QTc: 484 Bode: P: 41 DE: 130 QRS: 42 T: 88 INTERPRETIVE STATEMENTS: Normal sinus rhythm Moderate voltage criteria for LVH, may be normal variant Prolonged QT Abnormal ECG Compared to ECG 10/04/2022 21:12:51 Early repolarization no longer present Electronically Signed On 10-07-22 06:30:45 QA AUTOMATION ENGINEER by Edil Grace
[2022-10-07] MEDS: Ringers Lactate 1,000 ML IV SCH ×3 (07:48→19:13)
[2022-10-07] MEDS: ENOXAPARIN 40 MG/0.4 ML SQ SCH (07:49)
[2022-10-07] MEDS ORDERED: POTASSIUM CL SA 10 MEQ TAB PO ONE ×2 (09:00→16:00)
--- NOTE | 2022-10-07 19:02 | P.PN ---
Subjective Date of Service: 10/07/22 Chief Complaint: Septic shock, pneumonia No acute events overnight. She is intermittently confused. She is able to tell me her name and location, but she does not know why she is in the hospital. Per RN, she has been intermittently agitated this morning. Review of Systems is unable to be obtained Neurological: Confusion Physical Examination - Vital Signs Temperature: 99 F Blood Pressure: 162/83 Pulse: 82 Respirations: 19 Pulse Ox (%): 95 - Studies Microbiology Data (last 24 hrs): 10/05/22 18:25 Blood - Blood Anaerobic Blood Culture - Final 10/05/22 18:06 Blood - Blood Anaerobic Blood Culture - Final Assessment And Plan - Plan - Physical Exam General: Alert, Oriented x2 HEENT: Atraumatic, Mucous membr. moist/pink, EOMI, Sclerae nonicteric Neck: Supple Respiratory: Diminished, Rhonchi/gurgles (RLL) Cardiovascular: No edema, Regular rate/rhythm, Normal S1 S2, No gallops, No rubs, No murmurs Gastrointestinal: Normal bowel sounds, Soft and benign, Non-distended, No tenderness, No rebound, No guarding Musculoskeletal: No clubbing Integumentary: No rashes Neurological: Other (confused) # Concern for Septic Shock secondary to Right Lower Lobe Pneumonia (Aspiration?) Upon my evaluation, she is not meeting SIRS criteria. However, she presented with a blood pressure of 78/54 as well as leukocytosis and evidence of pneumonia. Septic shock was suspected by admitting provider due to two SBP < 90 mmHg. Plan: - Sepsis order set was initiated - Initial Lactate was 1.8 - Blood cultures drawn before antibiotics were given - Broad spectrum antibiotics started: Vancomycin + Piperacillin-Tazobactam - In regards to fluids: - 30 mL/kg of IV Normal Saline was given based on patient's actual body weight - Barium swallow requested to evaluate for aspiration risk - Encouraged incentive spirometry - Sepsis reassessment completed by Alejandro Bryan NP # Acute Toxic Metabolic Encephalopathy likely secondary to above # Substance Use Disorder (THC) # Moderate Right Carotid Artery Stenosis - Evaluation thus far: - Labs (10/06) = Na+ 139, Ca2+ 8.2, CO2 23, Glucose 83, Ammonia <15, BUN 12, Vitamin B12 pending, TSH 0.368 - Urine drug screen = positive for THC - Ethanol level = < 10 - Blood cultures x 2 drawn - Urinalysis = positive nitrite - CT head = "no acute intracranial abnormality." - Medication review = will review home list once available - Management plan: - If neurostimulator is MRI compatible, will obtain MRI + MRA head/neck to evaluate for CVA - Try to obtain today if possible - Continue treatment for pneumonia and monitor mental status - Thiamine 100 mg IV daily - Substance counseling cessation when able # Chronic Pain Syndrome on Buprenorphine-Naloxone s/p Neurostimulator - Hold home suboxone while hypotensive - Outpatient Pain Medicine physician = Dr. Luis Shields # Hypertension - Hold home medications # Elevated LFTs with Hepatic Steatosis # Hyperlipidemia - Hold home statin given elevated LFTs Mukund Woodard M.D.
[2022-10-07] MEDS: LIDOCAINE 4% PATCH TOP SCH (19:09)
[2022-10-07] MEDS: VANCOMYCIN 1 GM in NA CHLORIDE 0.9% 250 ML IVPB SCH (19:09)
[2022-10-07] MEDS: HYDROCODONE/APAP 10/325 TAB PO PRN (20:02)
[2022-10-07] MEDS ORDERED: ONDANSETRON 4 MG (ODT) TAB PO PRN (20:23)
[2022-10-08] MEDS: PIPER TAZO 3.375 GM in NA CHLORIDE 0.9% 100 ML IV SCH ×3 (00:12→17:00)
[2022-10-08] MEDS: HYDROCODONE/APAP 10/325 TAB PO PRN ×3 (02:44→20:35)
[2022-10-08 04:40] LABS: Absolute Lymphocytes (CBC) 1.7 K/uL (0.7-4.9); Hematocrit 30.7 % (36.0-45.0); Lymphocytes % 13.7 % (15.3-44.8); MCV 74.1 fL (80-100); MPV 7.6 fL (7.6-11.3); RBC Red Blood Cell Count 4.15 M/uL (3.86-4.86)
[2022-10-08 05:06] LABS: Albumin 2.1 g/dL (3.4-5.0); Bilirubin Total 0.4 mg/dL (0.2-1.0); Potassium 3.2 mmol/L (3.5-5.1); Protein, Total 5.3 g/dL (6.4-8.2)
[2022-10-08] MEDS ORDERED: POTASSIUM CL SA 10 MEQ TAB PO ONE (05:12)
[2022-10-08] MEDS ORDERED: VANCOMYCIN 1 GM in NA CHLORIDE 0.9% 250 ML IVPB SCH (05:30)
[2022-10-08] MEDS: Ringers Lactate 1,000 ML IV SCH ×3 (05:55→21:55)
[2022-10-08] MEDS: ENOXAPARIN 40 MG/0.4 ML SQ SCH (09:14)
[2022-10-08] MEDS: FLUOXETINE 20 MG CAP PO SCH (10:06)
[2022-10-08] MEDS ORDERED: HALOPERIDOL LACT 5 MG/ML INJ IM ONE (11:29)
[2022-10-08] MEDS ORDERED: HALOPERIDOL LACT 5 MG/ML INJ ONE (11:34)
[2022-10-08] MEDS ORDERED: ALPRAZOLAM 0.25 MG TABLET PO ONE (11:50)
[2022-10-08] MEDS: FOLIC ACID 1 MG, MULTIVITAMINS INJ 10 ML, THIAMINE HCL 100 MG in NA CHLORIDE 0.9% 1,000 ML IV SCH (17:49)
[2022-10-08] MEDS: THIAMINE HCL 100 MG TABLET PO SCH (17:49)
[2022-10-08] MEDS: VANCOMYCIN 1 GM in NA CHLORIDE 0.9% 250 ML IVPB SCH (17:49)
--- NOTE | 2022-10-08 18:42 | P.PN ---
Subjective Date of Service: 10/08/22 Chief Complaint: Septic shock, pneumonia No acute events overnight. This morning, she was agitated and a [facility] was called. She was given haloperidol and alprazolam. I spoke with her Pain Medicine FOREIGN SERVICE OFFICER Jam Coppola. He stated that she should not be on opioids and that he recently recommended that she seek care at a different Pain Medicine facility to inquire about intrathecal pain pumps. Review of Systems is unable to be obtained Physical Examination - Vital Signs Temperature: 97.9 F Blood Pressure: 161/84 Pulse: 82 Respirations: 19 Pulse Ox (%): 100 Assessment And Plan - Plan - Physical Exam General: Alert, Oriented x2, agitated HEENT: Atraumatic, Mucous membr. moist/pink, EOMI, Sclerae nonicteric Neck: Supple Respiratory: Diminished, Rhonchi/gurgles (RLL) Cardiovascular: No edema, Regular rate/rhythm, Normal S1 S2, No gallops, No rubs, No murmurs Gastrointestinal: Normal bowel sounds, Soft and benign, Non-distended, No tenderness, No rebound, No guarding Musculoskeletal: No clubbing Integumentary: No rashes Neurological: Other (confused) # Concern for Septic Shock secondary to Right Lower Lobe Pneumonia (Aspiration?) Upon my evaluation, she is not meeting SIRS criteria. However, she presented with a blood pressure of 78/54 as well as leukocytosis and evidence of pneumonia. Septic shock was suspected by admitting provider due to two SBP < 90 mmHg. Plan: - Sepsis order set was initiated - Initial Lactate was 1.8 - Blood cultures drawn before antibiotics were given - Broad spectrum antibiotics started: Vancomycin + Piperacillin-Tazobactam - In regards to fluids: - 30 mL/kg of IV Normal Saline was given based on patient's actual body weight - Barium swallow requested to evaluate for aspiration risk - Encouraged incentive spirometry - Sepsis reassessment completed by Alejandro Bryan NP # Acute Toxic Metabolic Encephalopathy likely secondary to above # Substance Use Disorder (THC) # Moderate Right Carotid Artery Stenosis - Evaluation thus far: - Labs (10/06) = Na+ 139, Ca2+ 8.2, CO2 23, Glucose 83, Ammonia <15, BUN 12, Vitamin B12 852, TSH 0.368 - Urine drug screen = positive for THC - Ethanol level = < 10 - Blood cultures x 2 drawn - Urinalysis = positive nitrite - CT head = "no acute intracranial abnormality." - Medication review = will review home list once available - Management plan: - If neurostimulator is MRI compatible, will obtain MRI + MRA head/neck to evaluate for CVA - Try to obtain today if possible - Continue treatment for pneumonia and monitor mental status - Started thiamine, folic acid, MVI infusion - Substance counseling cessation when able # Chronic Pain Syndrome on Buprenorphine-Naloxone s/p Neurostimulator - Spoke with her Pain Medicine Jam Coppola NP, who stated that she is currently seeking second opinion regarding intrathecal pain pump - Hold home suboxone while hypotensive - Outpatient Pain Medicine physician = Dr. Luis Landrum # Hypertension - Hold home medications # Elevated LFTs with Hepatic Steatosis # Hyperlipidemia - Hold home statin given elevated LFTs # Generalized Anxiety Disorder - Continue home fluoxetine Mukund Woodard M.D.
[2022-10-08] MEDS: LIDOCAINE 4% PATCH TOP SCH (20:27)
[2022-10-08] MEDS ORDERED: HALOPERIDOL LACT 5 MG/ML INJ IV ONE (21:52)
[2022-10-08] MEDS ORDERED: LORazepam 2 MG/ML VIAL IV ONE (23:59)
[2022-10-09] MEDS: PIPER TAZO 3.375 GM in NA CHLORIDE 0.9% 100 ML IV SCH ×4 (00:42→15:58)
[2022-10-09] MEDS ORDERED: chlordiazePOXIDE HCl 5 MG CAP PO PRN (03:18)
[2022-10-09] MEDS: HYDROCODONE/APAP 10/325 TAB PO PRN ×2 (05:39→22:26)
[2022-10-09] MEDS: VANCOMYCIN 1 GM in NA CHLORIDE 0.9% 250 ML IVPB SCH (05:41)
[2022-10-09] MEDS: Ringers Lactate 1,000 ML IV SCH ×3 (05:55→21:55)
[2022-10-09 06:20] LABS: Absolute Lymphocytes (CBC) 1.7 K/uL (0.7-4.9); Hematocrit 34.8 % (36.0-45.0); Lymphocytes % 12.6 % (15.3-44.8); MCV 75.1 fL (80-100); MPV 7.8 fL (7.6-11.3); RBC Red Blood Cell Count 4.63 M/uL (3.86-4.86)
[2022-10-09 06:51] LABS: Potassium 2.9 mmol/L (3.5-5.1)
[2022-10-09] MEDS ORDERED: KCL 20 MEQ/100 mL IVPB 20 MEQ/100 ML BAG IV SCH (07:00)
[2022-10-09] MEDS ORDERED: Magnesium Sulfate 2gm IVPB 2 G/50 ML BAG IV ONE (08:45)
[2022-10-09] MEDS ORDERED: POTASSIUM CL SA 10 MEQ TAB PO ONE ×3 (08:46→22:13)
[2022-10-09] MEDS: ENOXAPARIN 40 MG/0.4 ML SQ SCH (09:01)
[2022-10-09] MEDS: THIAMINE HCL 100 MG TABLET PO SCH (09:01)
[2022-10-09] MEDS: FLUOXETINE 20 MG CAP PO SCH (09:01)
[2022-10-09 14:08] LABS: Magnesium 2.1 mg/dL (1.8-2.4)
[2022-10-09] MEDS: chlordiazePOXIDE HCl 5 MG CAP PO SCH ×2 (14:53→22:26)
[2022-10-09] MEDS: FOLIC ACID 1 MG, MULTIVITAMINS INJ 10 ML, THIAMINE HCL 100 MG in NA CHLORIDE 0.9% 1,000 ML IV SCH (14:53)
--- NOTE | 2022-10-09 17:22 | P.PN ---
Subjective Date of Service: 10/09/22 Chief Complaint: Septic shock, pneumonia Overnight, she was intermittently agitated, but it responded well to benzodiazepines. After discussing with , it seems that she has been consuming heavier amounts of alcohol recently. Chlordiazepoxide was started due to concern for alcohol withdrawal syndrome. Review of Systems is unable to be obtained Physical Examination - Vital Signs Temperature: 99.2 F Blood Pressure: 161/86 Pulse: 96 Respirations: 20 Pulse Ox (%): 95 - Studies Microbiology Data (last 24 hrs): 10/05/22 18:55 Cerebral Spinal Fluid Gram Stain - Final 10/05/22 18:55 Cerebral Spinal Fluid Culture & Sensitivity - Final No growth. Assessment And Plan - Plan - Physical Exam General: Alert, Oriented x2, agitated HEENT: Atraumatic, Mucous membr. moist/pink, EOMI, Sclerae nonicteric Neck: Supple Respiratory: Diminished, Rhonchi/gurgles (RLL) Cardiovascular: No edema, Regular rate/rhythm, Normal S1 S2, No gallops, No rubs, No murmurs Gastrointestinal: Normal bowel sounds, Soft and benign, Non-distended, No tenderness, No rebound, No guarding Musculoskeletal: No clubbing Integumentary: No rashes Neurological: Other (confused) # Concern for Septic Shock secondary to Right Lower Lobe Pneumonia (Aspiration?) and Enterococcus Faecalis Urinary Tract Infection Upon my evaluation, she is not meeting SIRS criteria. However, she presented with a blood pressure of 78/54 as well as leukocytosis and evidence of pneumonia. Septic shock was suspected by admitting provider due to two SBP < 90 mmHg. Plan: - Sepsis order set was initiated - Initial Lactate was 1.8 - Blood cultures drawn before antibiotics were given - Broad spectrum antibiotics started: Vancomycin + Piperacillin-Tazobactam -> Ampicillin-Sulbactam - In regards to fluids: - 30 mL/kg of IV Normal Saline was given based on patient's actual body weight - Barium swallow requested to evaluate for aspiration risk - Encouraged incentive spirometry - Sepsis reassessment completed by Alejandro Bryan NP # Acute Toxic Metabolic Encephalopathy likely secondary to above (and possible Alcohol Withdrawal Syndrome?) # Substance Use Disorder (THC) # Moderate Right Carotid Artery Stenosis - Evaluation thus far: - Labs (10/06) = Na+ 139, Ca2+ 8.2, CO2 23, Glucose 83, Ammonia <15, BUN 12, Vitamin B12 852, TSH 0.368 - Urine drug screen = positive for THC - Ethanol level = < 10 - Blood cultures x 2 drawn - Urinalysis = positive nitrite - CT head = "no acute intracranial abnormality." - Medication review = will review home list once available - Management plan: - If neurostimulator is MRI compatible, will obtain MRI + MRA head/neck to evaluate for CVA - Try to obtain today if possible - Continue treatment for pneumonia/UTI and monitor mental status - Started thiamine, folic acid, MVI infusion - Scheduled chlordiazepoxide - Substance counseling cessation when able # Chronic Pain Syndrome on Buprenorphine-Naloxone s/p Neurostimulator - Spoke with her Pain Medicine Jam Coppola, ENDER, who stated that she is currently seeking second opinion regarding intrathecal pain pump - Hold home suboxone while hypotensive - Outpatient Pain Medicine physician = Dr. Luis Landrum # Hypertension - Hold home medications # Elevated LFTs with Hepatic Steatosis # Hyperlipidemia - Hold home statin given elevated LFTs # Generalized Anxiety Disorder - Continue home fluoxetine Mukund Woodard M.D.
[2022-10-09] MEDS ORDERED: AMLODIPINE 5 MG TAB PO ONE (22:16)
[2022-10-09] MEDS: LIDOCAINE 4% PATCH TOP SCH (22:27)
[2022-10-10] MEDS: AMPICILLIN/SULBACT 1.5 GM in NA CHLORIDE 0.9% 100 ML IVPB SCH ×4 (00:39→17:32)
[2022-10-10] MEDS: HYDROCODONE/APAP 10/325 TAB PO PRN (05:22)
[2022-10-10] MEDS: Ringers Lactate 1,000 ML IV SCH ×3 (05:55→20:25)
[2022-10-10 06:18] LABS: Absolute Lymphocytes (CBC) 1.5 K/uL (0.7-4.9); Hematocrit 34.7 % (36.0-45.0); Lymphocytes % 13.8 % (15.3-44.8); MCV 74.6 fL (80-100); MPV 7.2 fL (7.6-11.3); RBC Red Blood Cell Count 4.66 M/uL (3.86-4.86)
[2022-10-10 06:31] LABS: Potassium 3.6 mmol/L (3.5-5.1)
[2022-10-10] MEDS: chlordiazePOXIDE HCl 5 MG CAP PO SCH ×3 (08:34→20:17)
[2022-10-10] MEDS: THIAMINE HCL 100 MG TABLET PO SCH ×2 (08:34→13:57)
[2022-10-10] MEDS: FLUOXETINE 20 MG CAP PO SCH (08:34)
[2022-10-10] MEDS: ENOXAPARIN 40 MG/0.4 ML SQ SCH (08:35)
--- NOTE | 2022-10-10 12:52 | P.PN ---
Subjective Date of Service: 10/10/22 Chief Complaint: Septic shock, pneumonia Overnight, she did well. This morning, she was alert and oriented x 3. She was sitting comfortably eating breakfast. She states that she only drinks 1-2 mimosas on the weekends. However, her , Mr. Bae, relayed to me that she has a history of alcoholism, and although she had quit, she has been drinking heavily for the last few months. Review of Systems 10-point ROS is otherwise unremarkable General: Other (generalized pain) Physical Examination - Vital Signs Temperature: 99.1 F Blood Pressure: 163/90 Pulse: 86 Respirations: 16 Pulse Ox (%): 97 - Studies Microbiology Data (last 24 hrs): 10/05/22 18:55 Cerebral Spinal Fluid Gram Stain - Final 10/05/22 18:55 Cerebral Spinal Fluid Culture & Sensitivity - Final No growth. Assessment And Plan - Plan - Physical Exam General: Alert, Oriented x3 HEENT: Mucous membr. moist/pink, EOMI, Sclerae nonicteric, small laceration no right chin s/p sutures Neck: Supple, no JVD appreciated Respiratory: Diminished, faint rhonchi/gurgles (RLL) Cardiovascular: No edema, Regular rate/rhythm, Normal S1 S2, No gallops, No rubs, No murmurs Gastrointestinal: Normal bowel sounds, Soft and benign, Non-distended, No tenderness, No rebound, No guarding Musculoskeletal: No clubbing Integumentary: No rashes Neurological: A&Ox3, normal speech, slightly anxious affect # Concern for Septic Shock secondary to Right Lower Lobe Pneumonia (Aspiration?) and Enterococcus Faecalis Urinary Tract Infection Upon my evaluation, she is not meeting SIRS criteria. However, she presented with a blood pressure of 78/54 as well as leukocytosis and evidence of pneumonia. Septic shock was suspected by admitting provider due to two SBP < 90 mmHg. Plan: - Sepsis order set was initiated - Initial Lactate was 1.8 - Blood cultures drawn before antibiotics were given - Broad spectrum antibiotics started: Vancomycin + Piperacillin-Tazobactam -> Ampicillin-Sulbactam - In regards to fluids: - 30 mL/kg of IV Normal Saline was given based on patient's actual body weight - Barium swallow requested to evaluate for aspiration risk - Encouraged incentive spirometry - Sepsis reassessment completed by Alejandro Attema, DATABASE ADMIN # Acute Toxic Metabolic Encephalopathy likely secondary to above (and possible Alcohol Withdrawal Syndrome?) # Substance Use Disorder (THC) # Moderate Right Carotid Artery Stenosis - Evaluation thus far: - Labs (10/06) = Na+ 139, Ca2+ 8.2, CO2 23, Glucose 83, Ammonia <15, BUN 12, Vitamin B12 852, TSH 0.368 - Urine drug screen = positive for THC - Ethanol level = < 10 - Blood cultures x 2 drawn - Urinalysis = positive nitrite - CT head = "no acute intracranial abnormality." - Medication review = will review home list once available - Management plan: - If neurostimulator is MRI compatible, will obtain MRI + MRA head/neck to evaluate for CVA - Try to obtain today if possible - Continue treatment for pneumonia/UTI and monitor mental status - Started thiamine, folic acid, MVI infusion - Continue chlordiazepoxide - Substance counseling cessation when able # Chronic Pain Syndrome on Buprenorphine-Naloxone s/p Neurostimulator - Spoke with her Pain Medicine Jam Coppola, DATABASE ADMIN, who stated that she is currently seeking second opinion regarding intrathecal pain pump - Hold home suboxone while hypotensive - Outpatient Pain Medicine physician = Dr. Luis Landrum # Hypertension - Hold home medications # Elevated LFTs with Hepatic Steatosis # Hyperlipidemia - Hold home statin given elevated LFTs # Generalized Anxiety Disorder - Continue home fluoxetine Mukund Woodard M.D.
[2022-10-10] MEDS: FOLIC ACID 1 MG, MULTIVITAMINS INJ 10 ML, THIAMINE HCL 100 MG in NA CHLORIDE 0.9% 1,000 ML IV SCH (14:42)
[2022-10-10] MEDS: LIDOCAINE 4% PATCH TOP SCH (20:17)
[2022-10-11] MEDS: AMPICILLIN/SULBACT 1.5 GM in NA CHLORIDE 0.9% 100 ML IVPB SCH ×2 (00:07→05:58)
[2022-10-11 04:20] LABS: Magnesium 1.9 mg/dL (1.8-2.4); Potassium 3.7 mmol/L (3.5-5.1)
[2022-10-11] MEDS: HYDROCODONE/APAP 10/325 TAB PO PRN (04:27)
[2022-10-11] MEDS: Ringers Lactate 1,000 ML IV SCH (05:55)
[2022-10-11] MEDS ORDERED: POTASSIUM CL SA 10 MEQ TAB PO ONE (09:00)
[2022-10-11] MEDS: ENOXAPARIN 40 MG/0.4 ML SQ SCH (09:12)
[2022-10-11] MEDS: FLUOXETINE 20 MG CAP PO SCH (09:13)
[2022-10-11] MEDS: chlordiazePOXIDE HCl 5 MG CAP PO SCH ×3 (09:13→21:04)
[2022-10-11] MEDS ORDERED: NA CHLORIDE 0.9% 1,000 ML IV SCH ×2 (11:00→14:00)
[2022-10-11] MEDS: AMPICILLIN SODIUM 2 GM in NA CHLORIDE 0.9% 100 ML IV SCH ×3 (12:59→23:56)
[2022-10-11] MEDS ORDERED: METOPROLOL TARTRATE 5 MG/5 ML INJ IV STA (15:33)
[2022-10-11] MEDS ORDERED: cloNIDine HCL 0.1 MG TAB PO ONE (15:38)
--- NOTE | 2022-10-11 15:38 | P.PN ---
Date of Service: 10/11/22 Subjective Patient continues to improve. She is wanting to go home at this time. However, her blood pressure is poorly controlled. Holding discharge in the morning. Review of Systems 10-point ROS is otherwise unremarkable General: Other (generalized pain) Physical Examination - Vital Signs Reviewed - Physical Exam General: Alert, Oriented x3 HEENT: Mucous membr. moist/pink, EOMI, Sclerae nonicteric, small laceration no right chin s/p sutures Neck: Supple, no JVD appreciated Respiratory: Diminished, faint rhonchi/gurgles (RLL) Cardiovascular: No edema, Regular rate/rhythm, Normal S1 S2, No gallops, No rubs, No murmurs Gastrointestinal: Normal bowel sounds, Soft and benign, Non-distended, No tenderness, No rebound, No guarding Musculoskeletal: No clubbing Integumentary: No rashes Neurological: A&Ox3, normal speech, slightly anxious affect Assessment And Plan -Assessment # Concern for Septic Shock secondary to Right Lower Lobe Pneumonia (Aspiration?) and Enterococcus Faecalis Urinary Tract Infection # Acute Toxic Metabolic Encephalopathy likely secondary to above (and possible Alcohol Withdrawal Syndrome?) # Substance Use Disorder (THC) # Moderate Right Carotid Artery Stenosis # Chronic Pain Syndrome on Buprenorphine-Naloxone s/p Neurostimulator # Hypertension # Elevated LFTs with Hepatic Steatosis # Hyperlipidemia # Generalized Anxiety Disorder -Plan Plan: -Continue with IV antibiotics -Awaiting sputum and blood culture -Repeat chest x-ray -Continue with nebs as needed -O2 per protocol -Continue with gentle hydration -Repeat labs including CBC and renal function in a.m. -GI and DVT prophylaxis
[2022-10-11] MEDS: METOPROLOL TAR 50 MG TAB PO SCH (17:14)
[2022-10-11] MEDS ORDERED: TEMAZEPAM 15 MG CAP PO PRN (17:43)
[2022-10-11] MEDS ORDERED: MELATONIN 5 MG TABLET PO SCH (21:00)
[2022-10-11] MEDS ORDERED: HOME MED 1 EA UNK (Topiramate [Topiramate] 50 MG Tablet) PO SCH (21:00)
[2022-10-11] MEDS: GABAPENTIN 300 MG CAP PO SCH (21:04)
[2022-10-11] MEDS: cloNIDine HCL 0.1 MG TAB PO SCH (21:04)
[2022-10-11] MEDS: TOPIRAMATE 25 MG TAB PO SCH (21:04)
[2022-10-11] MEDS: LIDOCAINE 4% PATCH TOP SCH (21:05)
[2022-10-11] MEDS: PANTOPRAZOLE 40MG TABLET PO SCH (21:05)
[2022-10-12] MEDS: AMPICILLIN SODIUM 2 GM in NA CHLORIDE 0.9% 100 ML IV SCH (06:05)
[2022-10-12] MEDS: METOPROLOL TAR 50 MG TAB PO SCH (06:05)
[2022-10-12 06:14] VITALS: O2SAT 97
[2022-10-12 06:25] LABS: Absolute Lymphocytes (CBC) 2.8 K/uL (0.7-4.9); Hematocrit 35.2 % (36.0-45.0); Lymphocytes % 20.6 % (15.3-44.8); MCV 75.5 fL (80-100); MPV 7.3 fL (7.6-11.3); RBC Red Blood Cell Count 4.66 M/uL (3.86-4.86)
[2022-10-12 06:52] LABS: Albumin 2.7 g/dL (3.4-5.0); Bilirubin Direct 0.2 mg/dL (0-0.2); Bilirubin Total 0.4 mg/dL (0.2-1.0); Protein, Total 6.5 g/dL (6.4-8.2)
[2022-10-12 06:53] LABS: Potassium 4.4 mmol/L (3.5-5.1)
[2022-10-12 07:11] LABS: Folic Acid, (Folate) 9.9 ng/mL (3.1-17.5); Thyroid Stimulating Hormone 1.08 uIU/mL (0.360-3.740)
[2022-10-12 07:54] LABS: Anisocytosis 2+; Blood Morphology Comment NOTED (NOT SEEN); Platelet Estimate ADEQ; White Blood Cell Scan OK (OK)
--- NOTE | 2022-10-12 08:15 | RAD REPORT ---
EXAM DESCRIPTION: RAD - Chest Single View - 10/12/2022 6:07 am CLINICAL HISTORY: pneumonia Chest pain. COMPARISON: Chest Single View dated 10/05/2022; Chest Single View dated 10/04/2022; Chest Single View dated 09/06/2022; Chest Single View dated 10/30/2021 FINDINGS: Portable technique limits examination quality. Interstitial lung markings are prominent bilaterally. This appears relatively chronic. There has been improvement in the right base early infiltrate findings since prior study. Right base if appears ess entially clear on today's study. The heart is normal in size. No displaced fractures.
[2022-10-12] MEDS ORDERED: MULTIVITAMIN TAB PO SCH (09:00)
[2022-10-12] MEDS ORDERED: FLUOXETINE 20 MG CAP PO SCH (09:00)
[2022-10-12] MEDS ORDERED: AMLODIPINE 5 MG TAB PO SCH (09:00)
[2022-10-12] MEDS ORDERED: DEXLANSOPRAZOLE 60 MG PO SCH (09:00)
[2022-10-12] MEDS ORDERED: FOLIC ACID 1 MG TABLET PO SCH (09:00)
[2022-10-12] MEDS ORDERED: HOME MED 1 EA UNK (Fluoxetine Hcl [Prozac] 40 MG Capsule) PO SCH (09:00)
[2022-10-12] MEDS ORDERED: SUCRALFATE 1 GM TABLET PO SCH (09:00)
[2022-10-12 09:42] VITALS: TEMP 97.2
[2022-10-12 09:46] VITALS: BP 144/81
[2022-10-12] MEDS: chlordiazePOXIDE HCl 5 MG CAP PO SCH (09:46)
[2022-10-12] MEDS: GABAPENTIN 300 MG CAP PO SCH (09:46)
[2022-10-12] MEDS: TOPIRAMATE 25 MG TAB PO SCH (09:46)
[2022-10-12] MEDS: cloNIDine HCL 0.1 MG TAB PO SCH (09:47)
[2022-10-12] MEDS: THIAMINE HCL 100 MG TABLET PO SCH (09:47)
[2022-10-12] MEDS: PANTOPRAZOLE 40MG TABLET PO SCH (09:47)
[2022-10-12] MEDS: ENOXAPARIN 40 MG/0.4 ML SQ SCH (09:48)
== END 2022-10-12 12:30 | disposition home or self-care (01) | DRG 871 ==
LOC: ER 16:17 → ERHOLD 20:09 → 4TH 10-06 12:17 → 2ND 10-09 16:40
PROVIDERS: ADMIT Internal Medicine; ATTEND Hospitalist
PROC: 009U3ZX Drainage of Spinal Canal, Percutaneous Approach, Diagnostic (ICD-10-PCS; principal; 2022-10-05)
DX: A41.81 Sepsis due to Enterococcus (principal); G92.8 Other toxic encephalopathy; J18.9 Pneumonia, unspecified organism; R65.21 Severe sepsis with septic shock; F10.239 Alcohol dependence with withdrawal, unspecified; N39.0 Urinary tract infection, site not specified; I10 Essential (primary) hypertension; E78.5 Hyperlipidemia, unspecified; K21.9 Gastro-esophageal reflux disease without esophagitis; K76.0 Fatty (change of) liver, not elsewhere classified; F41.1 Generalized anxiety disorder; G89.29 Other chronic pain; M54.9 Dorsalgia, unspecified; I65.21 Occlusion and stenosis of right carotid artery; T50.915A Adverse effect of multiple unspecified drugs, medicaments and biological substances, initial encounter; R79.89 Other specified abnormal findings of blood chemistry; Z91.040 Latex allergy status; Z91.048 Other nonmedicinal substance allergy status; Z79.899 Other long term (current) drug therapy; Z96.653 Presence of artificial knee joint, bilateral; Z20.822 Contact with and (suspected) exposure to COVID-19
CPT/HCPCS: 36415; 62270; 70450; 71045; 74230; 80048; 80053; 80076; 80202; 80307; 80320; 80329; 81003; 81015; 82140; 82607; 82746; 82945; 82947; 83605; 83735; 83880; 84132; 84145; 84157; 84439; 84443; 85025; 85610; 85730; 87040; 87070; 87077; 87086; 87088; 87186; 87811; 89050; 92526; 92611; 93005; 94010; 96361; 96365; 96367; 96375; 99285; J0290; J0295; J0456; J1630; J1650; J2001; J2543; J3370; J3411; J3475; J7030; J7050; J7120

== ENCOUNTER 2022-10-24 16:08 | Emergency (ER) | payer OTHER ==
--- OUTSIDE RECORDS SUMMARY | 2022-10-24 16:21 | XMS REPORT | Continuity of Care Document ---
:[address] [facility] t Address [address] [place] [address] Care Team Providers Name Role Phone ANAHI CHAVES Primary Care Physician Unavailable Beverly Cartagena Attending Clinician Unavailable TONY DAS Attending Clinician Unavailable Ab Ortega Attending Clinician Lissy Anderson MA Attending Clinician Unavailable Doctor Unassigned, [place] Attending Clinician Unavailable Beverly Cartagena MD Attending Clinician [phone] Caprice Bartlett OT Attending Clinician Unavailable Nenita Marshall OT Attending Clinician Unavailable Tony Das MD Attending Clinician Reji Patterson Attending Clinician Unavailable Jason Bearden Attending Clinician Unavailable DOM RODRIGUEZ Attending Clinician Unavailable Anahi Chaves Admitting Clinician Unavailable Reji Patterson Admitting Clinician Unavailable Jason Bearden Admitting Clinician Unavailable DOM RODRIGUEZ Admitting Clinician Unavailable Payers Payer Name Policy Type Policy Number Effective Date Expiration Date [facility] [id number] 2021 00:00:00 Problems Condition Condition Condition Status Onset Resolution Last Treating Co mments Source Name Details Category Date Date Treatment Clinician Date 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 heart heart 9-16 ity of failure failure 00:00: [address] Disease of Disease of Disease Active 2021-0 U nivluiz liver liver 9-16 ity of 00:00: [place] 00 [facility] Dyspnea Dyspnea Disease Active Univers 9-16 ity of 00:00: [place] 00 [facility] Edema of Edema of Disease Active Unive rs lower lower 9-16 ity of [place] [facility] [place] Electrocar Electrocar Disease Active U nivers diogram diogram 9-16 ity of abnormal abnormal 00:00: [place] 00 [facility] 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 9-16 it y of lung lung 00:00: [place] 00 [facility] Backache Backache Disease Active Unive rs 9-16 ity of 00:00: [place] [facility] Coronary Coronary Disease Active Unive rs arterioscl arterioscl 9-16 it y of erosis erosis 00:00: [place] 00 [facility] PAD PAD Disease Active 2018-11 Methodi (periphera (periphera 2-10 st l artery [...] Disease Active 2019- [facility] failure failure [facility]: [facility] with with [...] gap gap 12-06 [facility] metabolic metabolic 00:00: [facility] acidosis acidosis 00 Center Alcohol Alcohol [...] [place] y failure y failure 00 [facility] Branch Elevated Elevated Disease Active 2016-11 Unive rs troponin troponin 0-29 ity of 00:00: [place] [id number] Medical Branch No known No known Disease Unive rs active active ity of problems problems [facility] Branch Brachial Brachial Problem Active 2022-09-30 Memoria [...] of ion of 22:33:04 l lumbar lumbar [place] interverte interverte bral disc bral disc (disorder) [...] ia carotid carotid 22:33:04 l artery artery [place] stenosis stenosis (disorder) (disorder) Active Problem 09/30/2022 [...] rmann Active Problem 09/30/2022 [facility] 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 Branch IODINE DRUG Active Rash Univers INGREDI 08-14 ity of 00:00: [place] [facility] latex DA Active SV [facility] 7-12 Clear 00:00: [facility] latex DA Active SV BLISTERS, [facility] RASH 12 Clear 00:00: [facility] Dye Propensi Active Radiology Metho di ty to 01-[address] adverse 00:00: [facility] reaction [facility] l s to drug DYE DRUG Active Unknown-Cmnt Univ ers INGREDI 207 ity of 00:00: [place] [facility] Branch Dye Propensi Active Unknown - Radiology [...] -IODINE INGREDI 03-31 ity of 00:00: [place] 00 [facility] Branch iodine DA Active [place] [facility] 8-07 Clear 00:00: [facility] 00 [facility] iodine DA Active [place] TOPICAL [facility] IODINE-RASH/ 07-04 Lanny r BLISTER 00:00: [facility] 00 [facility] iodine iodine Active Memoria topical< topical< l sup>1</s sup>1</s Reece n up> up> NO KNOWN Drug Active Univers ALLERGIE Class ity of S [facility] Social History Social Habit Start Date Stop Date Quantity Comments Source History of tobacco Cigarette Smoker [facility] Tobacco use and 2021-08-14 2021-08-14 Smokeless Universit y of exposure 00:00:00 00:00:00 tobacco non-user [facility] Alcohol intake 2019-11-06 2019-11-06 Current [facility] 00:00:00 00:00:00 non-drinker of Hospital alcohol (finding) Cigarettes smoked 2018-01-19 2018-01-[address] current (pack per 00:00:00 00:00:00 [facility] day) - Reported Cigarette 2018-01-19 2018-01-19 [facility] pack-years 00:00:00 00:00:00 Hospital Sex Ass[birth year] At [birth year] [facility] 00:00:00 00:00:00 Hospital Smoking Status Start Date Stop Date Source Tobacco smoking status 2022-09-07 19:49:31 Memor alana Gay Ex-smoker 2018-01-19 00:00:00 2018-01-19 [facility] Medications Ordered Filled Start Stop Current Ordering Indication Dosage Frequency Signature Comments Components Source Medication Medication Date Date Medication? Clinician (SIG) Name Name [place] [id number] 2021-11 Yes See Memori a mg oral 0-14 Instructio l tablet 20:59: ns, Take 1 Mary nn 00 tab po 1 hour prior to MRI, may repeat q 15 min. if still anxious, # 5 tab, 0 Refill(s), Pharmacy: [facility] #[id number], 160.02, cm, 09/07/22 15:06:00 CDT, Height, 50.511, kg, 09/07/22 15:06:00 CDT, Weight [place] [address] 2021-11 Yes See Memori a mg oral 0-14 Instructio l tablet 20:59: ns, Take 1 Mary nn 00 tab po 1 hour prior to MRI, may repeat q 15 min. if still anxious, # 5 tab, 0 Refill(s), Pharmacy: [facility] #[id number], 160.02, cm, 09/07/22 15:06:00 CDT, Height, 50.511, kg, 09/07/22 15:06:00 CDT, Weight [place] 25 2021-11 Yes See Memori a mg oral 0-14 Instructio l tablet 20:59: ns, Take 1 Mary nn 00 tab po 1 hour prior to MRI, may repeat q 15 min. if still anxious, # 5 tab, 0 Refill(s), Pharmacy: [facility] #[id number], 160.02, cm, 09/07/22 15:06:00 CDT, Height, 50.511, kg, 09/07/22 15:06:00 CDT, [facility] 2021-11 Yes See Memori a mg oral 0-14 Instructio l tablet 20:59: ns, Take 1 Mary nn 00 tab po 1 hour prior to MRI, may repeat q 15 min. if still anxious, # 5 tab, 0 Refill(s), Pharmacy: [facility] #[id number], 160.02, cm, 09/07/22 15:06:00 CDT, Height, 50.511, kg, 09/07/22 15:06:00 CDT, [facility] 2021-11 Yes See Memori a mg oral 0-14 Instructio l tablet 20:59: ns, Take 1 Mary nn 00 tab po 1 hour prior to MRI, may repeat q 15 min. if still anxious, # 5 tab, 0 Refill(s), Pharmacy: [facility] #[id number], 160.02, cm, 09/07/22 15:06:00 CDT, Height, 50.511, kg, 09/07/22 15:06:00 CDT, [facility] 2021-11 Yes See Memori a mg oral 0-14 Instructio l tablet 20:59: ns, Take 1 Mary nn 00 tab po 1 hour prior to MRI, may repeat q 15 min. if still anxious, # 5 tab, 0 Refill(s), Pharmacy: [facility] #[id number], 160.02, cm, 09/07/22 15:06:00 CDT, Height, 50.511, kg, 09/07/22 15:06:00 CDT, Weight topiramate 2021-0 Yes = 1 tab, Mem oria 50 mg oral 9-13 PO, BID, # l tablet 14:16: 180 tab, 1 Mary nn 00 Refill(s), [id number], 160.02, cm, 01/06/22 9:19:00 [facility] [employer], Height, 50.455, kg, 01/06/22 9:19:00 [facility] [employer], Weight topiramate 2021-0 Yes = 1 tab, Mem oria 50 mg oral 9-13 PO, BID, # l tablet 14:16: 180 tab, 1 Mary nn 00 Refill(s), [id number], 160.02, cm, 01/06/22 9:19:00 [employer], Height, 50.455, kg, 01/06/22 9:19:00 [employer] [employer], Weight topiramate 2021-0 Yes = 1 tab, Mem oria 50 mg oral 9-13 PO, BID, # l tablet 14:16: 180 tab, 1 Mary nn 00 Refill(s), [id number], 160.02, cm, 01/06/22 9:19:00 [employer], Height, 50.455, kg, 01/06/22 9:19:00 [employer], Weight topiramate 2021-0 Yes = 1 tab, Mem oria 50 mg oral 9-13 PO, BID, # l tablet 14:16: 180 tab, 1 Mary nn 00 Refill(s), [id number], 160.02, cm, 01/06/22 9:19:00 [employer], Height, 50.455, kg, 01/06/22 9:19:00 [employer], Weight topiramate 2021-0 Yes = 1 tab, Mem oria 50 mg oral 9-13 PO, BID, # l tablet 14:16: 180 tab, 1 Mary nn 00 Refill(s), [id number], 160.02, cm, 01/06/22 9:19:00 [employer], Height, 50.455, kg, 01/06/22 9:19:00 [employer] [employer], Weight topiramate 2021-0 Yes = 1 tab, Mem oria 50 mg oral 9-13 PO, BID, # l tablet 14:16: 180 tab, 1 Mary nn 00 Refill(s), Pharmacy: [facility] #[id number], 160.02, cm, 01/06/22 9:19:00 [employer], Height, 50.455, kg, 01/06/22 9:19:00 [employer], Weight topiramate 2021-0 Yes = 1 tab, Mem oria 50 mg oral 9-13 PO, BID, # l tablet 14:16: 180 tab, 1 Mary nn 00 Refill(s), Pharmacy: [facility] #[id number], 160.02, cm, 01/06/22 9:19:00 [employer], Height, 50.455, kg, 01/06/22 9:19:00 [employer], Weight topiramate 2021-0 Yes = 1 tab, Mem oria 25 mg oral 8-24 PO, l tablet 21:39: Bedtime, # [place] 00 30 tab, 4 Refill(s), Pharmacy: [facility] #[id number], 160.02, cm, 01/06/22 9:19:00 [employer], Height, 50.455, kg, 01/06/22 9:19:00 [employer], Weight topiramate 2021-0 Yes = 1 tab, Mem oria 25 mg oral 8-24 PO, l tablet 21:39: Bedtime, # [place] 00 30 tab, 4 Refill(s), Pharmacy: [facility] #[id number], 160.02, cm, 01/06/22 9:19:00 [employer], Height, 50.455, kg, 01/06/22 9:19:00 [employer], Weight topiramate 2021-0 Yes = 1 tab, Mem oria 25 mg oral 8-24 PO, l tablet 21:39: Bedtime, # [place] 00 30 tab, 4 Refill(s), Pharmacy: [facility] #[id number], 160.02, cm, 01/06/22 9:19:00 [employer], Height, 50.455, kg, 01/06/22 9:19:00 [employer], Weight topiramate 2022-0 Yes = 1 tab, Mem oria 25 mg oral 8-24 PO, l tablet 21:39: Bedtime, # [place] 00 30 tab, 4 Refill(s), Pharmacy: [facility] #[id number], 160.02, cm, 01/06/22 9:19:00 [employer], Height, 50.455, kg, 01/06/22 9:19:00 [employer], Weight topiramate 2021-0 Yes = 1 tab, Mem oria 25 mg oral 8-24 PO, l tablet 21:39: Bedtime, # [place] 00 30 tab, 4 Refill(s), Pharmacy: [facility] #[id number], 160.02, cm, 01/06/22 9:19:00 [employer], Height, 50.455, kg, 01/06/22 9:19:00 [employer], Weight topiramate 0 Yes = 1 tab, Mem oria 25 mg oral 8-24 PO, l tablet 21:39: Bedtime, # [place] 00 30 tab, 4 Refill(s), Pharmacy: [facility] #[id number], 160.02, cm, 01/06/22 9:19:00 [employer], Height, 50.455, kg, 01/06/22 9:19:00 [employer], Weight topiramate 2021-0 Yes = 1 tab, Mem oria 25 mg oral 8-24 PO, l tablet 21:39: Bedtime, # [place] 00 30 tab, 4 Refill(s), Pharmacy: [facility] #[id number], 160.02, cm, 01/06/22 9:19:00 [employer], Height, 50.455, kg, 01/06/22 9:19:00 [employer], Weight atorvastati 2021-0 Yes = 1 tab, Me moria n 20 mg 6-13 PO, l oral tablet 19:24: Bedtime, # [place] 00 30 tab, 3 Refill(s), Pharmacy: [facility] #[id number], 160.02, cm, 01/06/22 9:19:00 [employer], Height, 50.455, kg, 01/06/22 9:19:00 [employer], Weight atorvastati 2022-0 Yes = 1 tab, Me moria n 20 mg 6-13 PO, l oral tablet 19:24: Bedtime, # [place] 00 30 tab, 3 Refill(s), Pharmacy: [facility] #[id number], 160.02, cm, 01/06/22 9:19:00 [employer], Height, 50.455, kg, 01/06/22 9:19:00 [employer], Weight atorvastati 0 Yes = 1 tab, Me moria n 20 mg 6-13 PO, l oral tablet 19:24: Bedtime, # [place] 00 30 tab, 3 Refill(s), Pharmacy: [facility] #[id number], 160.02, cm, 01/06/22 9:19:00 [employer], Height, 50.455, kg, 01/06/22 9:19:00 [employer], Weight atorvastati Yes = 1 tab, Me moria n 20 mg 6-13 PO, l oral tablet 19:24: Bedtime, # [place] 00 30 tab, 3 Refill(s), Pharmacy: [facility] #[id number], 160.02, cm, 01/06/22 9:19:00 [employer], Height, 50.455, kg, 01/06/22 9:19:00 [employer], Weight atorvastati Yes = 1 tab, Me moria n 20 mg 6-13 PO, l oral tablet 19:24: Bedtime, # [place] 00 30 tab, 3 Refill(s), [id number], 160.02, cm, 01/06/22 9:19:00 [employer], Height, 50.455, kg, 01/06/22 9:19:00 [employer], Weight atorvastati 0 Yes = 1 tab, Me moria n 20 mg 6-13 PO, l oral tablet 19:24: Bedtime, # [place] 00 30 tab, 3 Refill(s), [id number], 160.02, cm, 01/06/22 9:19:00 [employer], Height, 50.455, kg, 01/06/22 9:19:00 [employer], Weight atorvastati Yes = 1 tab, Me moria n 20 mg 6-13 PO, l oral tablet 19:24: Bedtime, # [place] 00 30 tab, 3 Refill(s), Pharmacy: [facility] #[id number], 160.02, cm, 01/06/22 9:19:00 [employer], Height, 50.455, kg, 01/06/22 9:19:00 [employer], Weight OXcarbazepi 2-0 Yes = 1 tab, Me moria ne 150 mg 3-03 PO, l oral tablet 14:43: Bedtime, # [place] 00 30 tab, 2 Refill(s), Pharmacy: [facility] #[id number], 160.02, cm, 01/06/22 9:19:00 [employer], Height, 50.455, kg, 01/06/22 9:19:00 [employer], Weight OXcarbazepi 2021-0 Yes = 1 tab, Me moria ne 150 mg 3-03 PO, l oral tablet 14:43: Bedtime, # [place] 00 30 tab, 2 Refill(s), Pharmacy: [facility] #[id number], 160.02, cm, 01/06/22 9:19:00 [employer], Height, 50.455, kg, 01/06/22 9:19:00 [employer], Weight OXcarbazepi 2021-0 Yes = 1 tab, Me moria ne 150 mg 3-03 PO, l oral tablet 14:43: Bedtime, # [place] 00 30 tab, 2 Refill(s), [facility][id number], 160.02, cm, 01/06/22 9:19:00 [employer], Height, 50.455, kg, 01/06/22 9:19:00 [employer], Weight OXcarbazepi 2021-0 Yes = 1 tab, Me moria ne 150 mg 3-03 PO, l oral tablet 14:43: Bedtime, # [place] 00 30 tab, 2 Refill(s), Pharmacy: [facility] #[id number], 160.02, cm, 01/06/22 9:19:00 [employer], Height, 50.455, kg, 01/06/22 9:19:00 [employer], Weight OXcarbazepi 2021-0 Yes = 1 tab, Me moria ne 150 mg 3-03 PO, l oral tablet 14:43: Bedtime, # [place] 00 30 tab, 2 Refill(s), Pharmacy: [facility] #[id number], 160.02, cm, 01/06/22 9:19:00 [employer], Height, 50.455, kg, 01/06/22 9:19:00 [employer] [employer], Weight OXcarbazepi 2021-0 Yes = 1 tab, Me moria ne 150 mg 3-03 PO, l oral tablet 14:43: Bedtime, # [place] 00 30 tab, 2 Refill(s), Pharmacy: [facility] #[id number], 160.02, cm, 01/06/22 9:19:00 [employer], Height, 50.455, kg, 01/06/22 9:19:00 [employer], Weight OXcarbazepi 2021-0 Yes = 1 tab, Me moria ne 150 mg 3-03 PO, l oral tablet 14:43: Bedtime, # [place] 00 30 tab, 2 Refill(s), Pharmacy: [facility] #[id number], 160.02, cm, 01/06/22 9:19:00 [employer], Height, 50.455, kg, 01/06/22 9:19:00 [employer], Weight Buprenorphi 2021-[address] Mem [...] tab, H ermann 00 0 Refill(s), Pharmacy: [facility], 160.02, cm, 11/19/21 13:00:00 [employer], Height, 49.091, kg, 11/19/21 13:00:00 [employer] [employer], Weight topiramate 2020-11 Yes = 1 tab, Mem oria 50 mg oral 2-23 PO, BID, # l tablet 19:34: 180 tab, 2 Mary nn 00 Refill(s), Pharmacy: [facility], 160.02, cm, 11/19/21 13:00:00 [employer], Height, 49.091, kg, 11/19/21 13:00:00 [employer], Weight atorvastati 2020-11 Yes = 1 tab, Me moria n 20 mg 2-23 PO, Daily, l oral tablet 19:34: # 30 tab, H ermann 00 0 Refill(s), Pharmacy: [facility], 160.02, cm, 11/19/21 13:00:00 [employer], Height, 49.091, kg, 11/19/21 13:00:00 [employer], Weight topiramate 2020-11 Yes = 1 tab, Mem oria 50 mg oral 2-23 PO, BID, # l tablet 19:34: 180 tab, 2 Mary nn 00 Refill(s), Pharmacy: [facility], 160.02, cm, 11/19/21 13:00:00 [employer], Height, 49.091, kg, 11/19/21 13:00:00 [employer], Weight atorvastati 2020-11 Yes = 1 tab, Me moria n 20 mg 2-23 PO, Daily, l oral tablet 19:34: # 30 tab, H ermann 00 0 Refill(s), Pharmacy: [facility], 160.02, cm, 11/19/21 13:00:00 [employer], Height, 49.091, kg, 11/19/21 13:00:00 [employer], Weight topiramate 2020-11 Yes = 1 tab, Mem oria 50 mg oral 2-23 PO, BID, # l tablet 19:34: 180 tab, 2 Mary nn 00 Refill(s), Pharmacy: [facility], 160.02, cm, 11/19/21 13:00:00 [employer], Height, 49.091, kg, 11/19/21 13:00:00 [employer], Weight atorvastati 2020-11 Yes = 1 tab, Me moria n 20 mg 2-23 PO, Daily, l oral tablet 19:34: # 30 tab, H ermann 00 0 Refill(s), Pharmacy: [facility], 160.02, cm, 11/19/21 13:00:00 [employer], Height, 49.091, kg, 11/19/21 13:00:00 [employer] [employer], Weight topiramate 2020-11 Yes = 1 tab, Mem oria 50 mg oral 2-23 PO, BID, # l tablet 19:34: 180 tab, 2 Mary nn 00 Refill(s), Pharmacy: [facility], 160.02, cm, 11/19/21 13:00:00 [employer], Height, 49.091, kg, 11/19/21 13:00:00 [employer], Weight atorvastati 2020-11 Yes = 1 tab, Me moria n 20 mg 2-23 PO, Daily, l oral tablet 19:34: # 30 tab, H ermann 00 0 Refill(s), Pharmacy: [facility], 160.02, cm, 11/19/21 13:00:00 [employer], Height, 49.091, kg, 11/19/21 13:00:00 [employer], Weight topiramate 2020-11 Yes = 1 tab, Mem oria 50 mg oral 2-23 PO, BID, # l tablet 19:34: 180 tab, 2 Mary nn 00 Refill(s), Pharmacy: [facility], 160.02, cm, 11/19/21 13:00:00 [employer], Height, 49.091, kg, 11/19/21 13:00:00 [employer], Weight atorvastati 2020-11 Yes = 1 tab, Me moria n 20 mg 2-23 PO, Daily, l oral tablet 19:34: # 30 tab, H ermann 00 0 Refill(s), Pharmacy: [facility], 160.02, cm, 11/19/21 13:00:00 [employer], Height, 49.091, kg, 11/19/21 13:00:00 [employer], Weight topiramate 2020-11 Yes = 1 tab, Mem oria 50 mg oral 2-23 PO, BID, # l tablet 19:34: 180 tab, 2 Mary nn 00 Refill(s), Pharmacy: [facility], 160.02, cm, 11/19/21 13:00:00 [employer], Height, 49.091, kg, 11/19/21 13:00:00 [employer], Weight atorvastati 2020-11 Yes = 1 tab, Me moria n 20 mg 2-23 PO, Daily, l oral tablet 19:34: # 30 tab, H ermann 00 0 Refill(s), Pharmacy: [facility], 160.02, cm, 11/19/21 13:00:00 [employer], Height, 49.091, kg, 11/19/21 13:00:00 [employer], Weight topiramate 2020-11 Yes = 1 tab, Mem oria 50 mg oral 2-23 PO, BID, # l tablet 19:34: 180 tab, 2 Mary nn 00 Refill(s), Pharmacy: [facility], 160.02, cm, 11/19/21 13:00:00 [employer], Height, 49.091, kg, 11/19/21 13:00:00 [employer] [employer], Weight ALPRAZolam Yes alprazolam U nivers 0.5 mg 9-17 0.5 mg ity of tablet 10:31: tablet [place] [address] Take 1 Medical tablet Branch every day by oral route for 10 days. Dexlansopra Yes Dexilant Un malia zole 9-17 60 mg ity of (DEXILANT) 10:31: capsule, Luis as 60 mg 37 delayed Medical capsule release Branch Take 1 capsule every day by oral route for 56 days. gabapentin Yes gabapentin U nivers 600 mg 9-17 600 mg ity of tablet 10:31: tablet [place] [address] Take 1 Medical tablet 3 Branch times a day by oral route. tiZANidine Yes 4mg Take 4 mg Un malia 4 mg tablet 9-17 by mouth. ity of 10:31: [place] [address] Medical Branch zolpidem Yes 5mg Take 5 mg Univ ers 12.5 mg CR 9-17 by mouth. ity of tablet 10:31: [place] [address] Medical Branch ALPRAZolam Yes alprazolam U nivers 0.5 mg 9-17 0.5 mg ity of tablet 10:31: tablet [place] [address] Take 1 Medical tablet Branch every day [...] 600 mg ity of tablet 10:31: tablet [place] 37 Take 1 Medical tablet 3 Branch times a day by oral route. tiZANidine 0 Yes 4mg Take 4 mg Un malia 4 mg tablet 9-17 by mouth. ity of 10:31: [address] zolpidem 0 Yes 5mg Take 5 mg Univ ers 12.5 mg CR 9-17 by mouth. ity of tablet 10:31: [address] ALPRAZolam Yes alprazolam U nivers 0.5 mg 9-17 0.5 mg ity of tablet 10:31: tablet [place] 37 Take 1 Medical tablet Branch every [...] 600 mg ity of tablet 10:31: tablet [place] 37 Take 1 Medical tablet 3 Branch times a day by oral route. tiZANidine Yes 4mg Take 4 mg Un malia 4 mg tablet 9-17 by mouth. ity of 10:31: [address] zolpidem 0 Yes 5mg Take 5 mg Univ ers 12.5 mg CR 9-17 by mouth. ity of tablet 10:31: [address] ALPRAZolam 0 Yes alprazolam U nivers 0.5 mg 9-17 0.5 mg ity of tablet 10:31: tablet [place] 37 Take 1 Medical tablet Branch every [...] 600 mg ity of tablet 10:31: tablet [place] 37 Take 1 Medical tablet 3 Branch times a day by oral route. tiZANidine 2020-0 Yes 4mg Take 4 mg Un malia 4 mg tablet 9-17 by mouth. ity of 10:31: [address] Branch ALPRAZolam 2020-0 Yes alprazolam U nivers 0.5 mg 9-17 0.5 mg ity of tablet 10:31: tablet [place] 37 Take 1 Medical tablet Branch every [...] 600 mg ity of tablet 10:31: tablet [place] 37 Take 1 Medical tablet 3 Branch times a day by oral route. tiZANidine 2020-0 Yes 4mg Take 4 mg Un malia 4 mg tablet 9-17 by mouth. ity of 10:31: [address] zolpidem 2020-0 Yes 5mg Take 5 mg Univ ers 12.5 mg CR 9-17 by mouth. ity of tablet 10:31: [address] ALPRAZolam 2020-0 Yes alprazolam U nivers 0.5 mg 9-17 0.5 mg ity of tablet 10:31: tablet [place] 37 Take 1 Medical tablet Branch every [...] 600 mg ity of tablet 10:31: tablet [place] 37 Take 1 Medical tablet 3 Branch times a day by oral route. tiZANidine 1-0 Yes 4mg Take 4 mg Un malia 4 mg tablet 9-17 by mouth. ity of 10:31: [place] 37 Medical Branch zolpidem 0 Yes 5mg Take [...] by mouth ity of tablet 00:00: every [place] 00 evening. Medical Branch atorvastati Yes 10mg Take 10 mg Univers n 10 mg 7-25 by mouth ity of tablet 00:00: every [place] 00 evening. Medical Branch atorvastati Yes 10mg Take 10 mg Univers n 10 mg 7-25 by mouth ity of tablet 00:00: every [place] 00 evening. Medical Branch atorvastati Yes 10mg Take 10 mg Univers n 10 mg 7-25 by mouth ity of tablet 00:00: every [place] 00 evening. Medical Branch atorvastati Yes 10mg Take 10 mg Univers n 10 mg 7-25 by mouth ity of tablet 00:00: every [place] 00 evening. Medical Branch atorvastati Yes 10mg Take 10 mg Univers n 10 mg 7-25 by mouth ity of tablet 00:00: every [place] 00 evening. Medical Branch atorvastati Yes 10mg Take 10 mg Univers n 10 mg 7-25 by mouth ity of tablet 00:00: every 00 evening. [facility] atorvastati Yes 20 mg = 2 M emoria n 10 mg 1-25 tab, PO, l oral tablet 21:02: Daily, # He rmann 00 60 tab, 1 Refill(s), Pharmacy: [facility] #[id number], 162.56, cm, 12/22/20 14:47:00 [facility] [employer], Height, 66.818, kg, 12/22/20 14:47:00 [facility] [employer], Weight atorvastati Yes 20 mg = 2 M emoria n 10 mg 1-25 tab, PO, l oral tablet 21:02: Daily, # He rmann 00 60 tab, 1 Refill(s), [id number], 162.56, cm, 12/22/20 14:47:00 [facility] [employer], Height, 66.818, kg, 12/22/20 14:47:00 MA[facility] [employer] [employer], Weight atorvastati Yes 20 mg = 2 M emoria n 10 mg 1-25 tab, PO, l oral tablet 21:02: Daily, # He rmann 00 60 tab, 1 Refill(s), [id number], 162.56, cm, 12/22/20 14:47:00 [facility] [employer] [employer], Height, 66.818, kg, 12/22/20 14:47:00 MANA[facility] [employer], Weight atorvastati Yes 20 mg = 2 M emoria n 10 mg 1-25 tab, PO, l oral tablet 21:02: Daily, # He rmann 00 60 tab, 1 Refill(s), [facility][id number], 162.56, cm, 12/22/20 14:47:00 [facility] [employer], Height, 66.818, kg, 12/22/20 14:47:00 MANA[facility] [employer], Weight atorvastati Yes 20 mg = 2 M emoria n 10 mg 1-25 tab, PO, l oral tablet 21:02: Daily, # He rmann 00 60 tab, 1 Refill(s), Pharmacy: [facility] #[id number], 162.56, cm, 12/22/20 14:47:00 [facility] [employer], Height, 66.818, kg, 12/22/20 14:47:00 MA[facility] [employer], Weight atorvastati 2020-0 Yes 20 mg = 2 M emoria n 10 mg 1-25 tab, PO, l oral tablet 21:02: Daily, # Brendon rmann 00 60 tab, 1 Refill(s), Pharmacy: [facility] #[id number], 162.56, cm, 12/22/20 14:47:00 MA[facility] [employer], Height, 66.818, kg, 12/22/20 14:47:00 MANA[facility] [employer], Weight atorvastati 2020-0 Yes 20 mg = 2 M emoria n 10 mg 1-25 tab, PO, l oral tablet 21:02: Daily, # Brendon rmann 00 60 tab, 1 Refill(s), Pharmacy: [facility] ST[facility] #[id number], 162.56, cm, 12/22/20 14:47:00 [facility] [employer], Height, 66.818, kg, 12/22/20 14:47:00 MANA[facility] [employer], Weight topiramate 2020-0 Yes 50 mg = 1 Me moria 50 mg oral 9-03 tab, PO, l tablet 18:52: BID, # 60 Reece n 00 tab, 3 Refill(s), Pharmacy: [facility][id number], 162.56, cm, 07/31/20 13:42:00 CDT, Height, 56.818, kg, 07/31/20 13:42:00 CDT, Weight topiramate 2020-0 Yes 50 mg = 1 Me moria 50 mg oral 9-03 tab, PO, l tablet 18:52: BID, # 60 Reece n 00 tab, 3 Refill(s), Pharmacy: [facility] ST[facility] #[id number], 162.56, cm, 07/31/20 13:42:00 CDT, Height, 56.818, kg, 07/31/20 13:42:00 CDT, Weight topiramate 2020-0 Yes 50 mg = 1 Me moria 50 mg oral 9-03 tab, PO, l tablet 18:52: BID, # 60 Reece n 00 tab, 3 Refill(s), Pharmacy: [facility] ST[facility] #[id number], 162.56, cm, 07/31/20 13:42:00 CDT, Height, 56.818, kg, 07/31/20 13:42:00 CDT, Weight topiramate 2020-0 Yes 50 mg = 1 Me moria 50 mg oral 9-03 tab, PO, l tablet 18:52: BID, # 60 Reece n 00 tab, 3 Refill(s), Pharmacy: [facility] #[id number], 162.56, cm, 07/31/20 13:42:00 CDT, Height, 56.818, kg, 07/31/20 13:42:00 CDT, Weight topiramate 2020-0 Yes 50 mg = 1 Me moria 50 mg oral 9-03 tab, PO, l tablet 18:52: BID, # 60 Reece n 00 tab, 3 Refill(s), Pharmacy: [facility] #[id number], 162.56, cm, 07/31/20 13:42:00 CDT, Height, 56.818, kg, 07/31/20 13:42:00 CDT, Weight topiramate 2020-0 Yes 50 mg = 1 Me moria 50 mg oral 9-03 tab, PO, l tablet 18:52: BID, # 60 Reece n 00 tab, 3 Refill(s), Pharmacy: [facility] #[id number], 162.56, cm, 07/31/20 13:42:00 CDT, Height, 56.818, kg, 07/31/20 13:42:00 CDT, Weight topiramate 2020-0 Yes 50 mg = 1 Me moria 50 mg oral 9-03 tab, PO, l tablet 18:52: BID, # 60 Reece n 00 tab, 3 Refill(s), [facility][id number], 162.56, cm, 07/31/20 13:42:00 CDT, Height, 56.818, kg, 07/31/20 13:42:00 CDT, Weight topiramate 2020-0 Yes 25 mg = 1 Me moria 25 MG Oral 4-15 tab, PO, l Tablet 20:04: BID, # 60 Reece n [Topamax] 00 tab, 2 Refill(s), [id number] topiramate 2020-0 Yes 25 mg = 1 Me moria 25 MG Oral 4-15 tab, PO, l Tablet 20:04: BID, # 60 Reece n [Topamax] 00 tab, 2 Refill(s), Pharmacy: [facility] #[id number] topiramate 2020-0 Yes 25 mg = 1 Me moria 25 MG Oral 4-15 tab, PO, l Tablet 20:04: BID, # 60 Reece n [Topamax] 00 tab, 2 Refill(s), Pharmacy: [facility] #[id number] topiramate 2020-0 Yes 25 mg = 1 Me moria 25 MG Oral 4-15 tab, PO, l Tablet 20:04: BID, # 60 Reece n [Topamax] 00 tab, 2 Refill(s), Pharmacy: [facility] #[id number] topiramate 2020-0 Yes 25 mg = 1 Me moria 25 MG Oral 4-15 tab, PO, l Tablet 20:04: BID, # 60 Reece n [Topamax] 00 tab, 2 Refill(s), [facility] #[id number] topiramate 2020-0 Yes 25 mg = 1 Me moria 25 MG Oral 4-15 tab, PO, l Tablet 20:04: BID, # 60 Reece n [Topamax] 00 tab, 2 Refill(s), Pharmacy: [facility] #[id number] topiramate 2020-0 Yes 25 mg = 1 Me moria 25 MG Oral 4-15 tab, PO, l Tablet 20:04: BID, # 60 Reece n [Topamax] 00 tab, 2 Refill(s), [facility] #[id number] Morphine 2020-0 Yes 15 mg, PO, Mem oria 2-25 Q12H, 0 l 19:30: Refill(s) [place] 00 Morphine 2020-0 Yes 15 mg, PO, Mem oria 2-25 Q12H, 0 l 19:30: Refill(s) [place] 00 Morphine 2020-0 Yes 15 mg, PO, Mem oria 2-25 Q12H, 0 l 19:30: Refill(s) Victor Hugo Morphine 2020-0 Yes 15 mg, PO, Mem [...] [Topamax] 00 tab, 2 Refill(s), Pharmacy: [facility] #[id number] topiramate 2020-0 Yes 25 mg = 1 Me moria 25 MG Oral 2-14 tab, PO, l Tablet 23:50: BID, # 60 Reece n [Topamax] 00 tab, 2 Refill(s), Pharmacy: [facility] #[id number] topiramate 2020-0 Yes 25 mg = 1 Me moria 25 MG Oral 2-14 tab, PO, l Tablet 23:50: BID, # 60 Reece n [Topamax] 00 tab, 2 Refill(s), Pharmacy: [facility] #[id number] topiramate 2020-0 Yes 25 mg = 1 Me moria 25 MG Oral 2-14 tab, PO, l Tablet 23:50: BID, # 60 Reece n [Topamax] 00 tab, 2 Refill(s), Pharmacy: [facility] #[id number] topiramate 2020-0 Yes 25 mg = 1 Me moria 25 MG Oral 2-14 tab, PO, l Tablet 23:50: BID, # 60 Reece n [Topamax] 00 tab, 2 Refill(s), [id number] topiramate 2020-0 Yes 25 mg = 1 Me moria 25 MG Oral 2-14 tab, PO, l Tablet 23:50: BID, # 60 Reece n [Topamax] 00 tab, 2 Refill(s), Pharmacy: [facility] #[id number] topiramate 2020-0 Yes 25 mg = 1 Me moria 25 MG Oral 2-14 tab, PO, l Tablet 23:50: BID, # 60 Reece n [Topamax] 00 tab, 2 Refill(s), Pharmacy: [facility] #[id number] Aspirin 81 2020-0 Yes 81 mg = 1 Me moria MG Enteric 12-06 tab, PO, l Coated 23:31: Daily, # [place] Tablet 00 90 tab, 3 Refill(s) aspirin 81 2020-0 Yes 81 mg = 1 Me moria mg tablet, 12-06 tab, PO, l enteric 23:31: Daily, # Reece n coated 90 tab, 3 Refill(s) Aspirin 81 2020-0 Yes 81 mg = 1 Me moria MG Enteric 12-06 tab, PO, l Coated 23:31: Daily, # [place] Tablet 00 90 tab, 3 Refill(s) aspirin [...] tab, PO, l Coated 23:31: Daily, # [place] Tablet 00 90 tab, 3 Refill(s) aspirin 81 2020-0 Yes 81 mg = 1 Me moria mg tablet, 12-06 tab, PO, l enteric 23:31: Daily, # Reece n coated 00 90 tab, 3 Refill(s) Aspirin 81 2020-0 Yes 81 mg = 1 Me moria MG Enteric 12-06 tab, PO, l Coated 23:31: Daily, # [place] Tablet 00 90 tab, 3 Refill(s) aspirin 81 2020-0 Yes 81 mg = 1 Me moria mg tablet, 12-06 tab, PO, l enteric 23:31: Daily, # Reece n coated 00 90 tab, 3 Refill(s) Aspirin 81 2020-0 Yes 81 mg = 1 Me moria MG Enteric - tab, PO, l Coated 23:31: Daily, # [place] Tablet 00 90 tab, 3 Refill(s) aspirin 81 2020-0 Yes 81 mg = 1 Me moria mg tablet, - tab, PO, l enteric 23:31: Daily, # Reece n coated 00 90 tab, 3 Refill(s) Aspirin 81 2020-0 Yes 81 mg = 1 Me moria MG Enteric - tab, PO, l Coated 23:31: Daily, # [place] Tablet 00 90 tab, 3 Refill(s) aspirin 81 2020-0 Yes 81 mg = 1 Me moria mg tablet, - tab, PO, l enteric 23:31: Daily, # Reece n coated 00 90 tab, 3 Refill(s) oxcarbazepi 2020-0 Yes 150 mg = 1 Memoria ne 150 MG - tab, PO, l Oral Tablet 23:05: Bedtime, # [place] [Trileptal] 00 30 tab, 3 Refill(s), Pharmacy: [facility] #[id number] oxcarbazepi 2020-0 Yes 150 mg = 1 Memoria ne 150 MG - tab, PO, l Oral Tablet 23:05: Bedtime, # [place] [Trileptal] 00 30 tab, 3 Refill(s), Pharmacy: [facility] #[id number] oxcarbazepi 2020-0 Yes 150 mg = 1 Memoria ne 150 MG - tab, PO, l Oral Tablet 23:05: Bedtime, # [place] [Trileptal] 00 30 tab, 3 Refill(s), Pharmacy: [facility] #[id number] oxcarbazepi 2020-0 Yes 150 mg = 1 Memoria ne 150 MG -09 tab, PO, l Oral Tablet 23:05: Bedtime, # [place] [Trileptal] 00 30 tab, 3 Refill(s), Pharmacy: [facility] #[id number] oxcarbazepi 2020-0 Yes 150 mg = 1 Memoria ne 150 MG -09 tab, PO, l Oral Tablet 23:05: Bedtime, # [place] [Trileptal] 00 30 tab, 3 Refill(s), Pharmacy: [facility] #[id number] oxcarbazepi 2020-0 Yes 150 mg = 1 Memoria ne 150 MG -09 tab, PO, l Oral Tablet 23:05: Bedtime, # [place] [Trileptal] 00 30 tab, 3 Refill(s), Pharmacy: [facility] #[id number] oxcarbazepi 2020-0 Yes 150 mg = 1 Memoria ne 150 MG -09 tab, PO, l Oral Tablet 23:05: Bedtime, # [place] [Trileptal] 00 30 tab, 3 Refill(s), Pharmacy: [id number] Yes 40 mg = 1 M emoria n 40 mg 2-11 tab, PO, l oral tablet 23:32: Daily, # He rmann 39 30 tab, 2 Refill(s), Pharmacy: [facility][id number] [facility] 2018-11 Yes 40 mg = 1 M emoria n 40 mg 2-11 tab, PO, l oral tablet 23:32: Daily, # He rmann 39 30 tab, 2 Refill(s), Pharmacy: [facility][id number] [place] 2018-11 Yes 40 mg = 1 M emoria n 40 mg 2-11 tab, PO, l oral tablet 23:32: Daily, # He rmann 39 30 tab, 2 Refill(s), Pharmacy: [facility][id number] [place] 2018-11 Yes 40 mg = 1 M emoria n 40 mg 2-11 tab, PO, l oral tablet 23:32: Daily, # He rmann 39 30 tab, 2 Refill(s), Pharmacy: [facility] #[id number] [place] 2018-11 Yes 40 mg = 1 M emoria n 40 mg 2-11 tab, PO, l oral tablet 23:32: Daily, # He rmann 39 30 tab, 2 Refill(s), Pharmacy: [facility] #[id number] [place] 2018-11 Yes 40 mg = 1 M emoria n 40 mg 2-11 tab, PO, l oral tablet 23:32: Daily, # Brendon rmann 39 30 tab, 2 Refill(s), [id number] atorvastati 2018-11 Yes 40 mg = 1 M emoria n 40 mg 2-11 tab, PO, l oral tablet 23:32: Daily, # Brendon rmann 39 30 tab, 2 Refill(s), [facility][id number] dexlansopra 2018-11 Yes 60mg Take 60 mg [...] Hospita 60 mg 03 l capsule FLUoxetine 2018- Yes 20mg Take 20 mg M ethodi [...] Hospita 60 mg 03 l capsule FLUoxetine 2018- Yes 20mg Take 20 mg M ethodi [...] for l sleep. gabapentin 2018-11 Yes 600mg Q.[id number] Take 600 [facility] (NEURONTIN) 2-10 [id number] mg by s t 600 mg 11:46: [...] for l sleep. gabapentin 2018-11 Yes 600mg Q.[id number] Take 600 [facility] (NEURONTIN) 2-10 [id number] mg by s t 600 mg 11:46: [...] for l sleep. gabapentin 2018-11 Yes 600mg Q.[id number] Take 600 [facility] (NEURONTIN) 2-10 [id number] mg by s t 600 mg 11:46: [...] for l sleep. gabapentin 2018-11 Yes 600mg Q.[id number] Take 600 [facility] (NEURONTIN) 2-10 [id number] mg by s t 600 mg 11:46: [...] for l sleep. gabapentin 2018-11 Yes 600mg Q.[id number] Take 600 [facility] (NEURONTIN) 2-10 [id number] mg by s t 600 mg 11:46: [...] for l sleep. gabapentin 2018-11 Yes 600mg Q.[id number] Take 600 [facility] (NEURONTIN) 2-10 [id number] mg by s t 600 mg 11:46: [...] [facility] % patch 17:29: onto the [facility] 52 skin daily Center 12 hours on 12 hours off . gabapentin 2018-11 Yes 600mg Q.[id number] Take [address] [facility] (NEURONTIN) 1-18 [id number] mg by L ukes 600 MG 17:29: 3D mouth 3 Medical tablet 52 (three) Center times daily. zolpidem 2018-11 Yes 5mg QD Take [address] [facility] (AMBIEN) 5 1-18 by mouth [facility] MG tablet 17:29: nightly Medic al 52 Every Center night at bedtime . propranolol 2019 Yes 1{tbl} QD Take 1 [facility] [...] hours off . gabapentin 2018-11 Yes 600mg Q.[id number] Take [address] [facility] [address] (NEURONTIN) 1-18 [id number] mg by L ukes 600 MG 17:29: [...] MG tablet 17:29: every Medical 52 morning. [place] dexlansopra 2018-11 Yes 60mg QD Take 60 [...] hours off . gabapentin 2018-11 Yes 600mg Q.[id number] Take [address] [facility] (NEURONTIN) 1-18 [id number] mg by L ukes 600 MG 17:29: [...] hours off . gabapentin 2018-11 Yes 600mg Q.[id number] Take [address] [facility] [address] (NEURONTIN) 1-18 [id number] mg by L ukes 600 MG 17:29: [...] MG tablet 17:29: every Medical 52 morning. [place] dexlansopra 2018-11 Yes 60mg QD Take 60 [...] hours off . gabapentin 2018-11 Yes 600mg Q.[id number] Take [address] [facility] [address] (NEURONTIN) 1-18 [id number] mg by L ukes 600 MG 17:29: 3D mouth 3 Medical tablet 52 (three) Center times daily. zolpidem 2018-11 Yes 5mg QD Take [address] [facility] (AMBIEN) 5 1-18 by mouth [facility] MG tablet 17:29: nightly Medic al 52 Every Center night at bedtime . propranolol 2019 Yes 1{tbl} QD Take 1 [facility] [...] [Topamax] 02 tab, 2 Refill(s), Pharmacy: [facility] #[id number] [facility] 2018-11 Yes 25 mg = 1 Me moria 25 MG Oral 0-23 tab, PO, l Tablet 18:40: BID, # 60 Reece n [Topamax] 02 tab, 2 Refill(s), [facility] #[id number] [facility] 2018-11 Yes 25 mg = 1 Me moria 25 MG Oral 0-23 tab, PO, l Tablet 18:40: BID, # 60 Reece n [Topamax] 02 tab, 2 Refill(s), Pharmacy: [facility] #[id number] [facility] 2018-11 Yes 25 mg = 1 Me moria 25 MG Oral 0-23 tab, PO, l Tablet 18:40: BID, # 60 Reece n [Topamax] 02 tab, 2 Refill(s), Pharmacy: [facility][id number] [facility] 2018-11 Yes 25 mg = 1 Me moria 25 MG Oral 0-23 tab, PO, l Tablet 18:40: BID, # 60 Reece n [Topamax] 02 tab, 2 Refill(s), Pharmacy: [facility] #[id number] [facility] 2018-11 Yes 25 mg = 1 Me moria 25 MG Oral 0-23 tab, PO, l Tablet 18:40: BID, # 60 Reece n [Topamax] 02 tab, 2 Refill(s), Pharmacy: [facility] #[id number] [facility] 2018-11 Yes 25 mg = 1 Me moria 25 MG Oral 0-23 tab, PO, l Tablet 18:40: BID, # 60 Reece n [Topamax] 02 tab, 2 Refill(s), Pharmacy: [facility] #[id number] [facility] Yes 25 mg = 1 Me moria 25 MG Oral 8-21 tab, PO, l Tablet 15:45: Bedtime, # Mary nn [Topamax] 00 30 tab, 2 Refill(s), Pharmacy: [facility] #[id number] topiramate 2019-0 Yes 25 mg = 1 Me moria 25 MG Oral 8-21 tab, PO, l Tablet 15:45: Bedtime, # Mary nn [Topamax] 00 30 tab, 2 Refill(s), Pharmacy: [facility] #[id number] topiramate 2019-0 Yes 25 mg = 1 Me moria 25 MG Oral 8-21 tab, PO, l Tablet 15:45: Bedtime, # Mary nn [Topamax] 00 30 tab, 2 Refill(s), Pharmacy: [facility] #[id number] topiramate 2019-0 Yes 25 mg = 1 Me moria 25 MG Oral 8-21 tab, PO, l Tablet 15:45: Bedtime, # Mary nn [Topamax] 00 30 tab, 2 Refill(s), Pharmacy: [facility] #[id number] topiramate 2019-0 Yes 25 mg = 1 Me moria 25 MG Oral 8-21 tab, PO, l Tablet 15:45: Bedtime, # Mary nn [Topamax] 00 30 tab, 2 Refill(s), Pharmacy: [facility] #[id number] topiramate 2019-0 Yes 25 mg = 1 Me moria 25 MG Oral 8-21 tab, PO, l Tablet 15:45: Bedtime, # Mary nn [Topamax] 00 30 tab, 2 Refill(s), Pharmacy: [facility] #[id number] topiramate 2019-0 Yes 25 mg = 1 Me moria 25 MG Oral 8-21 tab, PO, l Tablet 15:45: Bedtime, # Mary nn [Topamax] 00 30 tab, 2 Refill(s), Pharmacy: [facility] #[id number] atorvastati 2019-0 Yes PO, Daily, Memoria n [...] M emoria 8 0 l 15:28: Refill(s) Zanaflex 20190 Yes 4 mg, PO, [...] 8 Daily, 0 l 15:00: Refill(s) gabapentin 20190 Yes 600 mg, Rao caity 8-21 PO, TID, 0 l 15:00: Refill(s) Ambien 0 Yes 5 mg, PO, Memori a 8 Bedtime, 0 l 15:00: Refill(s) lidocaine 2019-0 Yes See Memoria 8 Instructio l [...] rash / allergy symptoms, 0 Refill(s) FLUoxetine 2019-0 Yes 60 mg, PO, M emoria 8-21 Daily, 0 l 15:00: Refill(s) Zanaflex 20190 Yes 4 mg, PO, Rao caity 8- Q8H, 0 l 15:00: Refill(s) oxyCODONE 0 Yes 10 mg = 1 Mem oria 10 mg oral 8-21 tab, PO, l tablet, 15:00: Q6H, 0 Refill(s) release gabapentin 2018-0 Yes 600 mg, Rao caity 8 PO, [...] a 8- Bedtime, 0 l 15:00: Refill(s) lidocaine 2018- [...] 2019 Yes 60 mg, PO, M emoria 8 Daily, 0 l 15:00: Refill(s) gabapentin 2019-0 [...] 2019-0 Yes 5 mg, PO, Memori a 07-18 [...] 2019-0 Yes 60 mg, PO, M emoria 07-18 Daily, 0 l 15:00: Refill(s) gabapentin 2019-0 Yes 600 mg, Rao caity 07-18 PO, TID, 0 l 15:00: Refill(s) Ambien 2019-0 Yes 5 mg, PO, Memori a 07-18 [...] rash / allergy symptoms, 0 Refill(s) FLUoxetine 2019-0 Yes 60 mg, PO, M emoria 8 Daily, 0 l 15:00: Refill(s) Zanaflex 2019-0 Yes 4 mg, PO, Rao caity 8-21 Q8H, 0 l 15:00: Refill(s) oxyCODONE 20190 Yes 10 mg = 1 Mem oria 10 mg oral 8-21 tab, PO, l tablet, 15:00: Q6H, 0 [place] 00 Refill(s) release gabapentin 20190 Yes 600 mg, [...] 15:00: Q8H, 0 [Zofran] 00 Refill(s) Hydroxyzine 0 Yes 25 mg = 1 M emoria 8- tab, PO, l 15:00: Q6H, PRN rash / allergy symptoms, 0 Refill(s) Fluoxetine 0 Yes 60 mg, PO, M emoria 8-21 Daily, 0 l 15:00: Refill(s) gabapentin 0 Yes 600 mg, Rao caity 8-21 PO, TID, 0 l 15:00: Refill(s) Ambien 0 Yes 5 mg, PO, Memori a 821 Bedtime, 0 l 15:00: Refill(s) lidocaine 0 Yes See Memoria 07-18 Instructio l 15:00: ns, 5 % Transderma l q12, 0 Refill(s) Protonix 0 Yes 40 mg, PO, Mem oria 8-21 Daily, 0 l 15:00: Refill(s) Zanaflex 20190 Yes 4 mg, PO, Rao caity 8-21 Q8H, 0 l 15:00: Refill(s) Zofran 4 mg 2019 Yes 4 mg = 1 Me moria oral tablet - tab, PO, l 15:00: Q8H, 0 Refill(s) oxyCODONE 2019 Yes 10 mg = 1 Mem oria 10 mg oral 07-18 tab, PO, l tablet, 15:00: Q6H, 0 Refill(s) release hydrOXYzine Yes 25 mg = 1 M emoria 07-18 tab, PO, l 15:00: Q6H, PRN rash / allergy symptoms, 0 Refill(s) gabapentin Yes 600 mg, Rao caity 8- PO, TID, 0 l 15:00: Refill(s) FLUoxetine Yes 60 mg, PO, M emoria 07-18 Daily, 0 l 15:00: Refill(s) Ambien Yes 5 [...] gabapentin 0 Yes 600 mg, Rao caity - PO, TID, 0 l 15:00: Refill(s) Ambien Yes 5 mg, PO, Memori a 07-18 Bedtime, 0 l 15:00: Refill(s) lidocaine 2019-0 Yes See Memoria 07-18 Instructio l 15:00: ns, 5 % Transderma l q12, 0 Refill(s) Protonix 2019-0 Yes 40 mg, PO, Mem oria 8-21 Daily, 0 l 15:00: Refill(s) Zofran 4 mg 2019-0 Yes 4 mg = 1 Me moria oral tablet 8 tab, PO, l 15:00: Q8H, 0 Refill(s) hydrOXYzine 2019 Yes 25 mg = 1 M emoria 07-18 tab, PO, l 15:00: Q6H, PRN rash / allergy symptoms, 0 Refill(s) FLUoxetine 2019-0 Yes 60 mg, PO, M emoria 8 Daily, 0 l 15:00: Refill(s) Zanaflex 20190 Yes 4 mg, PO, Rao caity 07-18 Q8H, 0 l 15:00: Refill(s) oxyCODONE 2019 Yes 10 mg = 1 Mem oria 10 mg oral 07-18 tab, PO, l tablet, 15:00: Q6H, 0 Refill(s) release gabapentin 20190 Yes 600 mg, Rao caity 8- PO, TID, 0 l 15:00: Refill(s) Ambien 2019-0 Yes 5 mg, PO, Memori a 07-18 Bedtime, 0 l 15:00: Refill(s) Lidocaine 2019-0 Yes See oria 07-18 Instructio l 15:00: ns, 5 % Transderma l q12, 0 Refill(s) Protonix 2019-0 Yes 40 mg, PO, Mem oria 8- Daily, 0 l 15:00: Refill(s) Ondansetron 2019-0 Yes 4 mg = 1 Me moria 4 MG Oral 8-21 tab, PO, l Tablet 15:00: Q8H, 0 [Zofran] 00 Refill(s) Hydroxyzine 2019-0 Yes 25 mg = 1 M emoria 8-21 tab, PO, l 15:00: Q6H, PRN rash / allergy symptoms, 0 Refill(s) Fluoxetine 2019- Yes 60 mg, PO, M emoria 07-18 Daily, 0 l 15:00: Refill(s) gabapentin 2019- Yes 600 mg, Rao caity 07-18 PO, [...] 00 (two) l times a day. atorvastati 2018-0 Yes 1{tbl} Q.5D Take 1 Me thodi n (LIPITOR) 2-[address] 20 MG 00:00: mouth 2 Hospita tablet 00 (two) l times a day. atorvastati 2018-0 Yes 1{tbl} Q.5D Take 1 Me thodi [...] Immunizations Ordered Filled Immunization Date Status Comments [facility] e Immunization Name Name [id number] 2021-04-06 Completed Memor alana [id number]< 00:00:00 sup>1</sup> [id number] 2021-04-06 Completed Memor alana [id number]-[id number]< 00:00:00 sup>1</sup> SARS-COV-2 COVID-19 2021-04-06 Completed Unive [...] Unive rsity of MODERNA VACCINE 00:00:00 [facility] ical Branch SARS-COV-2 COVID-19 2021-04-06 Completed Unive rsity of MODERNA VACCINE 00:00:00 [facility] ical Branch SARS-COV-2 COVID-19 2021-04-06 Completed Unive rsity of MODERNA VACCINE 00:00:00 [facility] ical Branch [id number] 2021-04-06 Completed Memor ial [place] RNA-1273vaxMODERNA< 00:00:00 sup>1</sup> [id number] 2021-04-06 Completed Memor ial [place] RNA-1273vaxMODERNA< 00:00:00 sup>1</sup> [id number]-19m 2021-04-06 Completed Memor ial [place] RNA-1273vaxMODERNA< 00:00:00 sup>1</sup> [id number] 2021-04-06 Completed Memor ial [place] RNA-1273vaxMODERNA< 00:00:00 sup>1</sup> [id number]-[id number]-19m 2021-04-06 Completed Memor ial [place] RNA-1273vaxMODERNA< 00:00:00 sup>1</sup> SARS-COV-2 COVID-19 2021-03-12 Completed Unive rsity of MODERNA VACCINE 00:00:00 [facility] ical Branch SARS-COV-2 COVID-19 2021-03-12 Completed Unive rsity of MODERNA VACCINE 00:00:00 [facility] ical Branch SARS-COV-2 COVID-19 2021-03-12 Completed Unive rsity of MODERNA VACCINE 00:00:00 [facility] ical Branch SARS-COV-2 COVID-19 2021-03-12 Completed Unive rsity of MODERNA VACCINE 00:00:00 [facility] ical Branch SARS-COV-2 COVID-19 2021-03-12 Completed Unive rsity of MODERNA 12+ YRS 00:00:00 [facility] ical VACCINE Branch SARS-COV-2 COVID-19 2021-03-12 Completed Unive rsity [facility] MODERNA VACCINE 00:[facility]-19 2021-03-12 Completed Unive rsity of MODERNA VACCINE 00:00:00 [facility] Influenza Virus 2020-11-28 Completed Universit y of Vaccine (3+ yrs) 00:00:00 [facility] Influenza Virus 2020-11-28 Completed Universit y of Vaccine (3+ yrs) 00:00:00 [facility] 2020-11-28 Completed Universit y of Vaccine (3+ yrs) 00:00:00 [facility] 2020-11-28 Completed Universit y of Vaccine (3+ yrs) 00:00:00 [facility] Influenza Virus 2020-11-28 Completed Universit y of Vaccine (3+ yrs) 00:00:00 [facility] 2020-11-28 Completed Universit y of Vaccine (3+ yrs) 00:00:00 [facility] 2020-11-28 Completed Universit y of Vaccine (3+ yrs) 00:00:00 [facility] FLUCELVAX QUAD PF 2017-10-[address] 00:00:00 [facility] Pneumococcal 2017-10-06 Completed [facility]ucianism Conjugate 13-Valent 00:00:00 Hospi iqra Influenza Virus 2017-10-06 Completed [facility] Vaccine Quad IM, 00:00:00 [facility] Preserv and ABX Branch Free 2-64 YRS Pneumococcal 13 2017-10-06 Completed Universit [facility] of Conjugate, PCV13 00:00:00 [place] [facility] (Prevnar 13) Branch Influenza Virus 2017-10-06 Completed [facility] of Vaccine Quad IM, 00:00:00 [place] [facility] Preserv and ABX Branch Free 2-64 YRS Pneumococcal 13 2017-10-06 Completed Universit y of Conjugate, PCV13 00:00:00 [place] [facility] (Prevnar 13) Branch Influenza Virus 2017-10-06 Completed [facility] of Vaccine Quad IM, 00:00:00 [place] [facility] Preserv and ABX Branch Free 6 MO-64 YRS Pneumococcal 13 2017-10-06 Completed [facility]it y of Conjugate, PCV13 00:00:00 [place] [facility] (Prevnar 13) Branch Influenza Virus 2017-10-06 Completed Universit y of Vaccine Quad IM, 00:00:00 [facility] dical Preserv and ABX Branch Free 6 [...] Completed Universit y of Conjugate, PCV13 00:00:00 [place] [facility] (Prevnar 13) Branch Influenza Virus [...] [facility] ([facility]vnar 13) Branch FLUCELVAX QUAD PF 2017-10-[address] [facility]00 [facility] Pneumococcal 2017-10-06 Completed [facility] Conjugate 13-Valent 00:00:00 Hospi iqra FLUCELVAX QUAD PF 2017-10-[address] 00:[facility]00 Hospital Pneumococcal 2017-10-06 Completed [facility]ism Conjugate 13-Valent 00:00:00 Hospi iqra FLUCELVAX QUAD PF 2017-10-[address] 00:[facility]:00 Hospital Pneumococcal 2017-10-06 Completed [facility] Conjugate 13-Valent 00:00:00 Hospi iqra FLUCELVAX QUAD PF 2017-10-[address] 00:[facility]:00 Hospital Pneumococcal 2017-10-06 Completed [facility]ianism Conjugate 13-Valent 00:00:00 Hospi iqra FLUCELVAX QUAD PF 2017-10-[address] 00:[facility]:00 Hospital Pneumococcal 2017-10-06 Completed [facility] Conjugate 13-Valent 00:00:00 Hospi iqra Vital Signs Vital Name Observation Time Observation Value Comments Source Systolic blood 2021-08-14 15:39:00 130 [facility]Hg[facility] 2021-08-14 15:39:00 81 [facility] 2021-08-14 15:39:00 76 /min General acute hospital Body temperature 2021-08-14 15:39:00 37 Amy [facility] Respiratory rate 2021-08-14 15:39:00 18 /min [facility] Body height 2021-08-14 15:39:00 162.6 cm General acute hospital Body weight 2021-08-14 15:39:00 53.933 kg General acute hospital BMI 2021-08-14 15:39:00 20.41 kg/m2 General acute hospital Oxygen saturation in 2021-08-14 15:39:00 100 /min [facility] Arterial blood by [facility] Pulse oximetry Branch Systolic (mm Hg) 2022-09-07 19:49:00 Rao Gay Diastolic (mm Hg) 2022-09-07 19:49:00 Mem jaswinder Gay Heart Rate 2022-09-07 19:49:00 [facility] [place] Height 2022-09-07 19:49:00 5 [ft_i] [facility] [place] Weight 2022-09-07 19:49:00 [facility] BMI Calculated 2022-09-07 19:49:00 May [place] Systolic (mm Hg) 2022-01-06 15:19:00 Rao rial [place] Diastolic (mm Hg) 2022-01-06 15:19:00 Mem orial [place] Heart Rate 2022-01-06 15:19:00 [facility] [place] Respitory Rate 2022-01-06 15:19:00 Memori al [place] Height 2022-01-06 15:19:00 160.02 cm [facility] [place] Weight 2022-01-06 15:19:00 [facility] [place] BMI Calculated 2022-01-06 15:19:00 Memori al [place] Systolic blood 2021-12-16 15:00:00 138 mm[Hg] [facility] pressure Diastolic blood 2021-12-16 15:00:00 82 mm[Hg] [facility] pressure Systolic (mm Hg) 2021-12-10 22:22:00 Rao rial [place] Diastolic (mm Hg) 2021-12-10 22:22:00 Mem orial [place] Heart Rate 2021-12-10 22:22:00 [facility] [place] Respitory Rate 2021-12-10 22:22:00 Memori al [place] Height 2021-12-10 22:22:00 160.02 cm [facility] [place] Weight 2021-12-10 22:22:00 [facility] [place] BMI Calculated 2021-12-10 22:22:00 Memori al [place] Systolic (mm Hg) 2021-11-19 19:00:00 Rao rial [place] Diastolic (mm Hg) 2021-11-19 19:00:00 Mem orial [place] Heart Rate 2021-11-19 19:00:00 [facility] [place] Respitory Rate 2021-11-19 19:00:00 Memori al [place] Height 2021-11-19 19:00:00 160.02 cm [facility] [place] Weight 2021-11-19 19:00:00 [facility] [place] BMI Calculated 2021-11-19 19:00:00 Memori al [place] Heart rate 2021-11-18 16:04:00 80 /min [facility] Systolic (mm Hg) 2021-04-08 14:16:00 Rao rial [place] Diastolic (mm Hg) 2021-04-08 14:16:00 Mem orial [place] Heart Rate 2021-04-08 14:16:00 [facility] [place] Respitory Rate 2021-04-08 14:16:00 [facility]ori [facility] [place] Height 2021-04-08 14:16:00 162.56 cm [facility] [place] Weight 2021-04-08 14:16:00 [facility] [place] BMI Calculated 2021-04-08 14:16:00 Memori [facility] [place] Systolic (mm Hg) 2020-12-22 20:47:00 Rao rial [place] Diastolic (mm Hg) 2020-12-22 20:47:00 Mem orial [place] Height 2020-12-22 20:47:00 162.56 cm [facility] [place] Weight 2020-12-22 20:47:00 [facility] [place] BMI Calculated 2020-12-22 20:47:00 Memori al [place] Systolic (mm Hg) 2020-07-31 18:42:00 Rao rial [place] Diastolic (mm Hg) 2020-07-31 18:42:00 Mem orial [place] Heart Rate 2020-07-31 18:42:00 [facility] [place] Respitory Rate 2020-07-31 18:42:00 Mem[facility] al [place] Height 2020-07-31 18:42:00 162.56 cm [facility] [place] Weight 2020-07-31 18:42:00 [facility] [place] BMI Calculated 2020-07-31 18:42:00 [facility] [place] Temperature Oral (F) 2020-07-31 18:42:00 96.9 F [facility] [place] Systolic (mm Hg) 2020-01-22 17:49:00 Rao rial [place] Diastolic (mm Hg) 2020-01-22 17:49:00 Mem orial [place] Heart Rate 2020-01-22 17:49:00 [facility] [place] Respitory Rate 2020-01-22 17:49:00 Memori al [place] Height 2020-01-22 17:49:00 162.56 cm [facility] [place] Weight 2020-01-22 17:49:00 [facility] [place] BMI Calculated 2020-01-22 17:49:00 Memori al [place] Systolic (mm Hg) 2020-01-11 21:53:00 Rao rial [place] Diastolic (mm Hg) 2020-01-11 21:53:00 Mem orial [place] Heart Rate 2020-01-11 21:53:00 [facility] [place] Height 2020-01-11 21:53:00 162.56 cm [facility] [place] Weight 2020-01-11 21:53:00 [facility] [place] BMI Calculated 2020-01-11 21:53:00 Memori al [place] Systolic (mm Hg) 2019-12-06 22:16:00 Rao rial [place] Diastolic (mm Hg) 2019-12-06 22:16:00 Mem orial [place] Heart Rate 2019-12-06 22:16:00 [facility] [place] Respitory Rate 2019-12-06 22:16:00 Memori al [place] Height 2019-12-06 22:16:00 162.56 cm [facility] [place] Weight 2019-12-06 22:16:00 [facility] [place] BMI Calculated 2019-12-06 22:16:00 Memori al [place] BMI Calculated 2019-11-09 17:41:00 Memori al [place] Height 2019-11-09 17:41:00 162.56 cm [facility] [place] Weight 2019-11-09 17:41:00 [facility] [place] Systolic (mm Hg) 2019-09-19 18:12:00 Rao rial [place] Diastolic (mm Hg) 2019-09-19 18:12:00 Mem orial [place] Heart Rate 2019-09-19 18:12:00 [facility] [place] Respitory Rate 2019-09-19 18:12:00 Memori al [place] Height 2019-09-19 18:12:00 162.56 cm [facility] [place] Weight 2019-09-19 18:12:00 [facility] [place] BMI Calculated 2019-09-19 18:12:00 Mem[facility] [place] Systolic (mm Hg) 2019-08-23 19:05:00 Rao rial [place] Diastolic (mm Hg) 2019-08-23 19:05:00 Mem orial [place] Heart Rate 2019-08-23 19:05:00 [facility] [place] Respitory Rate 2019-08-23 19:05:00 Memori al [place] Height 2019-08-23 19:05:00 162.56 cm [facility] [place] Weight 2019-08-23 19:05:00 [facility] [place] BMI Calculated 2019-08-23 19:05:00 Memori al [place] Systolic (mm Hg) 2019-07-18 14:57:00 Rao rial [place] Diastolic (mm Hg) 2019-07-18 14:57:00 Mem orial [place] Heart Rate 2019-07-18 14:57:00 [facility] [place] Respitory Rate 2019-07-18 14:57:00 Olimpialexa carroll [place] Height 2019-07-18 14:57:00 162.56 cm [facility] [place] Weight 2019-07-18 14:57:00 [facility] BMI Calculated 2019-07-18 14:57:00 May [place] Procedures Procedure Date / Time Performing Clinician Source Performed [facility] of 2022-07-21 21:48:00 [facility] muscle(s); muscle(s) innervated by facial, trigeminal, cervical spinal and accessory nerves, bilateral (eg, for chronic migraine) EXTERNAL PROVIDER RECORDS 2022-03-08 05:01:00 Doctor Unassigned, [facility] EXTERNAL MAMMOGRAM 2021-08-31 13:00:00 Doctor Unassigned, [facility] Arthroplasty [facility]amine[facility] Plan of Care Planned Activity Planned Date Details Comments Source Future Scheduled 2024-10-[address] [facility] 00:00:00 (procedure) [code = [facility] [id number]] Future Scheduled 2024-10-[address] [facility] Test 00:00:00 (procedure) [code = [facility] [id number]] Future Scheduled 2024-10-[address] [facility] Test 00:00:00 (procedure) [code = [facility] [id number]] Future Scheduled 2024-10-[address] [facility] Test 00:00:00 (procedure) [code = [facility] [id number]] Future Scheduled 2022-10-02 HEPATITIS B VACCINES Met [facility] Test 08:41:32 (1 of 3 - 3-dose series) [code = HEPATITIS B VACCINES (1 of 3 - 3-dose series)] Future Scheduled 2022-10-02 Hepatitis C screening [facility] Test 08:41:32 (procedure) [code = 404134268] Future Scheduled 2022-10-02 Screening for [facility] Test 08:41:32 malignant neoplasm of cervix (procedure) [code = 169773943] Future Scheduled 2022-10-02 BREAST CANCER [facility] Test 08:41:32 SCREENING [code = BREAST CANCER SCREENING] Future Scheduled 2022-10-02 COLONOSCOPY SCREENING [facility] Test 08:41:32 [code = COLONOSCOPY SCREENING] Future Scheduled 2022-10-02 SHINGLES VACCINES (1 Met [facility] Test 08:41:32 of 2) [code = SHINGLES VACCINES (1 of 2)] Future Scheduled 2022-10-02 Pneumococcal Vaccine: [facility] Test 08:41:32 Pediatrics (0 to 5 Years) and At-Risk Patients (6 to 64 Years) (2 - PPSV23 if available, else PCV20) [code = Pneumococcal Vaccine: Pediatrics (0 to 5 Years) and At-Risk Patients (6 to 64 Years) (2 - PPSV23 if available, else PCV20)] Future Scheduled 2022-10-02 COVID-19 VACCINE (3 - [facility] Test 08:41:32 Booster for Moderna series) [code = COVID-19 VACCINE (3 - Booster for Moderna series)] Future Scheduled 2022-10-02 INFLUENZA VACCINE Method [facility] Test 08:41:32 [code = INFLUENZA VACCINE] Future Scheduled 2022-10-02 HEPATITIS B VACCINES Met [facility] Test 08:41:32 (1 of 3 - 3-dose series) [code = HEPATITIS B VACCINES (1 of 3 - 3-dose series)] Future Scheduled 2022-10-02 Hepatitis C screening [facility] Test 08:41:32 (procedure) [code = [id number]] Future Scheduled 2022-10-02 Screening for [facility] Test 08:41:32 malignant neoplasm of cervix (procedure) [code = 495703535] Future Scheduled 2022-10-02 BREAST CANCER [facility] Test 08:41:32 SCREENING [code = BREAST CANCER SCREENING] Future Scheduled 2022-10-02 COLONOSCOPY SCREENING [facility] Test 08:41:32 [code = COLONOSCOPY SCREENING] Future Scheduled 2022-10-02 SHINGLES VACCINES (1 Met [facility] Test 08:41:32 of 2) [code = SHINGLES VACCINES (1 of 2)] Future Scheduled 2022-10-02 Pneumococcal Vaccine: [facility] Test 08:41:32 Pediatrics (0 to 5 Years) and At-Risk Patients (6 to 64 Years) (2 - PPSV23 if available, else PCV20) [code = Pneumococcal Vaccine: Pediatrics (0 to 5 Years) and At-Risk Patients (6 to 64 Years) (2 - PPSV23 if available, else PCV20)] Future Scheduled 2022-10-02 COVID-19 VACCINE (3 - [facility] Test 08:41:32 Booster for Moderna series) [code = COVID-19 VACCINE (3 - Booster for Moderna series)] Future Scheduled 2022-10-02 INFLUENZA VACCINE Method [facility] Test 08:41:32 [code = INFLUENZA VACCINE] Future Scheduled 2022-10-02 HEPATITIS B VACCINES Met [facility] Test 08:41:32 (1 of 3 - 3-dose series) [code = HEPATITIS B VACCINES (1 of 3 - 3-dose series)] Future Scheduled 2022-10-02 Hepatitis C screening [facility] Test 08:41:32 (procedure) [code = 690502801] Future Scheduled 2022-10-02 Screening for [facility] Test 08:41:32 malignant neoplasm of cervix (procedure) [code = 468322956] Future Scheduled 2022-10-02 BREAST CANCER [facility] Test 08:41:32 SCREENING [code = BREAST CANCER SCREENING] Future Scheduled 2022-10-02 COLONOSCOPY SCREENING [facility] Test 08:41:32 [code = COLONOSCOPY SCREENING] Future Scheduled 2022-10-02 SHINGLES VACCINES (1 Met [facility] Test 08:41:32 of 2) [code = SHINGLES VACCINES (1 of 2)] Future Scheduled 2022-10-02 Pneumococcal Vaccine: [facility] Test 08:41:32 Pediatrics (0 to 5 Years) and At-Risk Patients (6 to 64 Years) (2 - PPSV23 if available, else PCV20) [code = Pneumococcal Vaccine: Pediatrics (0 to 5 Years) and At-Risk Patients (6 to 64 Years) (2 - PPSV23 if available, else PCV20)] Future Scheduled 2022-10-02 COVID-19 VACCINE (3 - [facility] Test 08:41:32 Booster for Moderna series) [code = COVID-19 VACCINE (3 - Booster for Moderna series)] Future Scheduled 2022-10-02 INFLUENZA VACCINE Method [facility] Test 08:41:32 [code = INFLUENZA VACCINE] Future Scheduled 2022-09-11 HEPATITIS B VACCINES Met [facility] Test 06:10:07 (1 of 3 - 3-dose series) [code = HEPATITIS B VACCINES (1 of 3 - 3-dose series)] Future Scheduled 2022-09-11 Hepatitis C screening [facility] Test 06:10:07 (procedure) [code = 434970716] Future Scheduled 2022-09-11 Screening for [facility] Test 06:10:07 malignant neoplasm of cervix (procedure) [code = 675216484] Future Scheduled 2022-09-11 BREAST CANCER [facility] Test 06:10:07 SCREENING [code = BREAST CANCER SCREENING] Future Scheduled 2022-09-11 COLONOSCOPY SCREENING [facility] Test 06:10:07 [code = COLONOSCOPY SCREENING] Future Scheduled 2022-09-11 SHINGLES VACCINES (1 Met [facility] Test 06:10:07 of 2) [code = SHINGLES VACCINES (1 of 2)] Future Scheduled 2022-09-11 Pneumococcal Vaccine: [facility] Test 06:10:07 Pediatrics (0 to 5 Years) and At-Risk Patients (6 to 64 Years) (2 - PPSV23 if available, else PCV20) [code = Pneumococcal Vaccine: Pediatrics (0 to 5 Years) and At-Risk Patients (6 to 64 Years) (2 - PPSV23 if available, else PCV20)] Future Scheduled 2022-09-11 COVID-19 VACCINE (3 - [facility] Test 06:10:07 Booster for Moderna series) [code = COVID-19 VACCINE (3 - Booster for Moderna series)] Future Scheduled 2022-09-11 INFLUENZA VACCINE Method [facility] Test 06:10:07 [code = INFLUENZA VACCINE] Future Scheduled 2022-09-06 HEPATITIS B VACCINES Met [facility] Test 14:11:02 (1 of 3 - 3-dose series) [code = HEPATITIS B VACCINES (1 of 3 - 3-dose series)] Future Scheduled 2022-09-06 Hepatitis C screening [facility] Test 14:11:02 (procedure) [code = 774886629] Future Scheduled 2022-09-06 Screening for [facility] Test 14:11:02 malignant neoplasm of cervix (procedure) [code = 918833449] Future Scheduled 2022-09-06 BREAST CANCER [facility] Test 14:11:02 SCREENING [code = BREAST CANCER SCREENING] Future Scheduled 2022-09-06 COLONOSCOPY SCREENING [facility] Test 14:11:02 [code = COLONOSCOPY SCREENING] Future Scheduled 2022-09-06 SHINGLES VACCINES (1 Met [facility] Test 14:11:02 of 2) [code = SHINGLES VACCINES (1 of 2)] Future Scheduled 2022-09-06 Pneumococcal Vaccine: [facility] Test 14:11:02 Pediatrics (0 to 5 Years) and At-Risk Patients (6 to 64 Years) (2 - PPSV23 or PCV20) [code = Pneumococcal Vaccine: Pediatrics (0 to 5 Years) and At-Risk Patients (6 to 64 Years) (2 - PPSV23 or PCV20)] Future Scheduled 2022-09-06 COVID-19 VACCINE (3 - [facility] Test 14:11:02 Booster for Moderna series) [code = COVID-19 VACCINE (3 - Booster for Moderna series)] Future Scheduled 2022-09-06 INFLUENZA VACCINE Method [facility] Test 14:11:02 [code = INFLUENZA VACCINE] Future Scheduled 2022-09-06 HEPATITIS B VACCINES Met [facility] Test 14:11:02 (1 of 3 - 3-dose series) [code = HEPATITIS B VACCINES (1 of 3 - 3-dose series)] Future Scheduled 2022-09-06 Hepatitis C screening [facility] Test 14:11:02 (procedure) [code = 170297770] Future Scheduled 2022-09-06 Screening for [facility] Test 14:11:02 malignant neoplasm of cervix (procedure) [code = 331861816] Future Scheduled 2022-09-06 BREAST CANCER [facility] Test 14:11:02 SCREENING [code = BREAST CANCER SCREENING] Future Scheduled 2022-09-06 COLONOSCOPY SCREENING [facility] Test 14:11:02 [code = COLONOSCOPY SCREENING] Future Scheduled 2022-09-06 SHINGLES VACCINES (1 Met [facility] Test 14:11:02 of 2) [code = SHINGLES VACCINES (1 of 2)] Future Scheduled 2022-09-06 Pneumococcal Vaccine: [facility] Test 14:11:02 Pediatrics (0 to 5 Years) and At-Risk Patients (6 to 64 Years) (2 - PPSV23 or PCV20) [code = Pneumococcal Vaccine: Pediatrics (0 to 5 Years) and At-Risk Patients (6 to 64 Years) (2 - PPSV23 or PCV20)] Future Scheduled 2022-09-06 COVID-19 VACCINE (3 - [facility] Test 14:11:02 Booster for Moderna series) [...] [facility] cervix (procedure) [code = 170404504] Future Scheduled [address] [facility] malignant neoplasm of [facility] cervix (procedure) [code = 580266829] Future Scheduled [address] [facility] 00:00:00 malignant neoplasm of [facility] cervix (procedure) [code = 698147000] Future Scheduled [address] [facility] Test 00:00:00 malignant neoplasm of [facility] cervix (procedure) [code = 173224075] Future Scheduled 1983 DTAP/TDAP/TD VACCINES CH I [...] [facility] l Center breast (procedure) [code = 770566492] Future Scheduled [address] [facility] Test 00:00:00 (combo) [code = CT Medical C enter Colonography (combo)] Future Scheduled [address] [facility] 00:00:00 malignant neoplasm of [facility] colon (procedure) [code = 074944645] Future Scheduled [address] [facility] Test 00:00:00 malignant neoplasm of [facility] Center colon (procedure) [code = 864636791] Future Scheduled [address] [facility] Test 00:00:00 malignant neoplasm of [facility] colon (procedure) [code = 663291422] Future Scheduled [address] [facility] Test 00:00:00 malignant neoplasm of [facility] Center colon (procedure) [code = 514657739] Future Scheduled 1964 Sigmoidoscopy [facility]] Medical Adame r Future Scheduled [address] [facility] Test 00:00:00 malignant neoplasm of [facility] breast (procedure) [code = 284793816] Future Scheduled [address] [facility] 00:00:00 (combo) [code = CT Medical C enter Colonography (combo)] Future Scheduled [address] [facility] 00:00:00 malignant neoplasm of [facility] colon (procedure) [code = 191330386] Future Scheduled [address] [facility] Test 00:00:00 malignant neoplasm of [facility] colon (procedure) [code = 845308883] Future Scheduled [address] [facility] Test 00:00:00 malignant neoplasm of [facility] colon (procedure) [code = 973715737] Future Scheduled [address] [facility] Test 00:00:00 malignant neoplasm of [facility] colon (procedure) [code = 444099056] Future Scheduled 1964 [facility] [address] [facility] 00:00:00 malignant neoplasm of [facility] Center breast (procedure) [code = 860184788] Future Scheduled [address] [facility] 00:00:00 (combo) [code = CT Medical C enter Colonography (combo)] Future Scheduled [address] [facility] 00[facility]00:00 malignant neoplasm of [facility] colon (procedure) [code = 418046424] Future Scheduled [address] [facility] Test 00:00:00 malignant neoplasm of [facility] colon (procedure) [code = 163827547] Future Scheduled [address] [facility] Test 00:00:00 malignant neoplasm of [facility] Center colon (procedure) [code = 041775619] Future Scheduled [address] [facility] Test 00:00:00 malignant neoplasm of [facility] Center colon (procedure) [code = 776305928] Future Scheduled 1964 [facility]] Medical Lissa r Future Scheduled [address] [facility] Test 00:00:00 malignant neoplasm of [facility] Center breast (procedure) [code = 220368734] Future Scheduled [address] [facility] 00:00:00 (combo) [code = CT Medical C enter Colonography (combo)] Future Scheduled [address] [facility] Test 00:00:00 malignant neoplasm of [facility] Center colon (procedure) [code = 469840694] Future Scheduled [address] [facility] Test 00:00:00 malignant neoplasm of [facility] Center colon (procedure) [code = 934211437] Future Scheduled [address] [facility] Test 00:00:00 malignant neoplasm of [facility] Center colon (procedure) [code = 137896559] Future Scheduled [address] [facility] Test 00:00:00 malignant neoplasm of [facility] Center colon (procedure) [code = 228321152] Future Scheduled 1964 S[facility]oidoscopy [facility]] Medical Lissa dozier Encounters Start End Encounter Admission Attending Care Care Encounter Source Date/Time Date/Time Type Type Clinicians Facility Department ID 2021-06-08 Inpatient EL Eulogio, HCACL DAYS [id number] [facility] 10:30:00 Joanna [id number] [facility] 2021-06-05 Inpatient EL Eulogio, HCACL DAYS [id number] [facility] 11:30:00 Joanna [id number] [facility] 2021-05-19 Inpatient Eulogio, HCACL DAYS [id number] [facility] 07:30:00 Joanna [id number] [facility] 2021-05-15 Inpatient ЕЛЕНА Fitch DAYS [id number] [facility] 14:00:00 Beverly [id number] [facility] 2022-11-15 2022-11-15 Outpatient MHIE MHIE [id number] [facility] 13:00:00 13:00:00 24 l [place] 2022-11-15 2022-11-15 Outpatient MHIE MHIE [id number] [facility]oria 13:00:00 13:00:00 24 l [place] 2022-11-15 2022-11-15 Outpatient MHIE MHIE [id number] [facility] 13:00:00 13:00:00 24 l [place] 2022-10-29 2022-10-29 Outpatient TONY OLGUIN [facility] [id number] [facility] 13:30:00 13:30:00 [facility] 2022-09-28 2022-09-28 Ambulatory nullFlavo MNA [id number] [facility] 16:00:00 16:00:00 Pre-Reg r Neurology 26 l Elvin [place] 2022-09-28 2022-09-28 Ambulatory nullFlavo MNA [id number] [facility] 16:00:00 16:00:00 Pre-Reg r Neurology 26 l Elvin Rashidann 2022-09-28 2022-09-28 Ambulatory nullFlavo MNA [id number] [facility] 16:00:00 16:00:00 Pre-Reg r Neurology 26 l [facility]vin Rashidann 2022-09-28 2022-09-28 Outpatient JANEE Ortega MHMISCHER [id number] 11:00:00 11:00:00 Ab 25 Abran 2022-09-28 2022-09-28 Outpatient KEITH OrtegaSCHZURDO MHMISCHER [id number] 11:00:00 11:00:00 Ab 26 Abran 2022-09-13 2022-09-13 Outpatient MHIE MHIE [id number] Memoria 13:00:00 13:00:00 26 baldemar Gay 2022-09-13 2022-09-13 Outpatient MHIE MHIE [id number] Memoria 13:00:00 13:00:00 26 baldemar Gay 2022-09-07 2022-09-08 Outpatient nullFlavo MNA [id number] Memoria 19:45:00 04:59:59 r Neurology 25 l Elvin Gay 2022-09-07 2022-09-08 Outpatient nullFlavo MNA [id number] Memoria 19:45:00 04:59:59 r Neurology 25 l Elvin Gay 2022-09-07 2022-09-08 Outpatient nullFlavo MNA [id number] Memoria 19:45:00 04:59:59 r Neurology 25 l Elvin Gay 2022-09-07 2022-09-07 Outpatient Michellejames, MHMISCHER MHMISCHER [id number] 14:45:00 23:59:59 Ab 25 Abran 2022-09-07 2022-09-07 Outpatient Shannon, MHMISCHER MHMISCHER [id number] 14:45:00 23:59:59 Ab 25 Abran 2022-09-07 2022-09-07 Outpatient MHIE MHIE [id number] Memoria 14:45:00 14:45:00 25 baldemar Gay 2022-09-07 2022-09-07 Outpatient MHIE MHIE [id number] Memoria 14:45:00 14:45:00 25 baldemar Gay 2022-08-20 2022-08-20 Outpatient TONY OLGUIN [facility] [id number] Univers 10:30:00 10:30:00 ity [facility] 2022-08-13 2022-08-13 Pre Visit DASH Anderson 1.2.688.892 [id number] Univers 00:00:00 00:00:00 Outreach Lissy ACOSTA 350.1.13.10 i ty karthik [phone] [address] 2022-07-21 2022-07-22 Outpatient nullFlavo MNA [id number] Memoria 21:00:00 04:59:59 r Neurology 23 l Elvin Gay 2022-07-21 2022-07-22 Outpatient nullFlavo MNA [id number] Memoria 21:00:00 04:59:59 r Neurology 23 l Elvin Gay 2022-07-21 2022-07-22 Outpatient nullFlavo MNA [id number] Memoria 21:00:00 04:59:59 r Neurology 23 l Elvin Gay 2022-07-21 2022-07-21 Outpatient BINTA OrtegaDANIELLESCHER MHMISCHER [id number] 16:00:00 23:59:59 Ab 23 Abran 2022-07-21 2022-07-21 Outpatient Shannon KEITHSCHER MHMISCHER [id number] 16:00:00 23:59:59 Ab 23 Abran 2022-07-21 2022-07-21 Outpatient MHIE MHIE [id number] Memoria 16:00:00 16:00:00 23 l Victor Hugo 2022-07-21 2022-07-21 Outpatient MHIE MHIE [id number] Memoria 16:00:00 16:00:00 23 l Victor Hugo 2022-04-13 2022-04-13 Ambulatory nullFlavo MNA [id number] Memoria 18:15:00 18:15:00 Pre-Reg r Neurology 22 l Elvin Gay 2022-04-13 2022-04-13 Ambulatory nullFlavo MNA [id number] Memoria 18:15:00 18:15:00 Pre-Reg r Neurology 22 l Elvin Gay 2022-04-13 2022-04-13 Ambulatory nullFlavo MNA [id number] Memoria 18:15:00 18:15:00 Pre-Reg r Neurology 22 l Elvin Gay 2022-04-13 2022-04-13 Outpatient MHIE IE [id number] Memoria 13:15:00 13:15:00 22 baldemar Gay 2022-04-13 2022-04-13 Outpatient MHIE IE [id number] Memoria 13:15:00 13:15:00 22 baldemar Gay 2022-04-13 2022-04-13 Outpatient BINTA OrtegaDANIELLESCHER MHMISCHER [id number] 13:15:00 13:15:00 Ab 22 Abran 2022-04-13 2022-04-13 Outpatient BINTA OrtegaDANIELLESCHER MHMISCHER [id number] 13:15:00 13:15:00 Ab 22 Abran 2022-03-08 2022-03-08 [facility] Doctor HO 1.2.840.114 [id number] Univers 00:00:00 00:00:00 Only Unassigned, LISA 350.1.13.10 ity of [place] [facility] 4.2.7.2.686 Luis as [phone] [address] 2022-02-11 2022-02-12 Outpatient nullFlavo MNA [id number] Memoria 18:00:00 04:59:59 r Neurology 19 l Elvin Gay 2022-02-11 2022-02-12 Outpatient nullFlavo MNA [id number] Memoria 18:00:00 04:59:59 r Neurology 19 l Elvin Gay 2022-02-11 2022-02-12 Outpatient nullFlavo MNA [id number] Memoria 18:00:00 04:59:59 r Neurology 19 l Elvin Gay 2022-02-11 2022-02-11 Outpatient JANEE Ortega [id number] 13:00:00 23:59:59 Ab 19 Abran 2022-02-11 2022-02-11 Outpatient JANEE Ortega MISCHER [id number] 13:00:00 23:59:59 Ab 19 Abran 2022-02-11 2022-02-11 Outpatient MHIE MHIE [id number] Memoria 13:00:00 13:00:00 19 baldemar Gay 2022-02-11 2022-02-11 Outpatient MHIE MHIE [id number] Memoria 13:00:00 13:00:00 19 baldemar Gay 2022-01-06 2022-01-07 Outpatient nullFlavo MNA [id number] Memoria 15:15:00 05:59:59 r Neurology 21 l Elvin Gay 2022-01-06 2022-01-07 Outpatient nullFlavo MNA [id number] Memoria 15:15:00 05:59:59 r Neurology 21 l Elvin Gay 2022-01-06 2022-01-07 Outpatient nullFlavo MNA [id number] Memoria 15:15:00 05:59:59 r Neurology 21 l Elvin Gay 2022-01-06 2022-01-06 Outpatient JANEE Ortega MISCHZURDO [id number] 09:15:00 23:59:59 Ab 21 Abran 2022-01-06 2022-01-[address] [facility] [id number] 09:15:00 23:59:59 Ab 21 Abran 2022-01-06 2022-01-06 Outpatient MHIE IE [id number] Memoria 09:15:00 09:15:00 21 baldemar Gay 2022-01-06 2022-01-06 Outpatient [facility] [id number] Memoria 09:15:00 09:15:00 21 baldemar Gay 2021-12-16 2021-12-16 Treatment Beverly Cartagena Candice 1.2.840.1 [id number] Methodi 09:00:00 10:00:[address] 3.430.2.7 Hospit a .3.908947 l .8 2021-12-16 2021-12-16 Treatment Beverly [place] Candice 1.2.840.1 [id number] Methodi 09:00:00 10:00:00 Cap[address] 3.430.2.7 Hospit a .3.244434 l .8 2021-12-16 2021-12-16 Travel 1.2.840.1 1.2.581.532 1410 [id number] Methodi 00:00:00 00:00:[address] 3.430.2.7 0.2.7.3.698 Ho spita .3.930964 084.8 l .8 2021-12-16 2021-12-16 Travel 1.2.840.1 1.2.578.019 6845 [id number] Methodi 00:00:00 00:00:[address] 3.430.2.7 0.2.7.3.698 Ho spita .3.082692 084.8 l .8 2021-12-10 2021-12-11 Outpatient nullFlavo MNA [id number] Memoria 22:15:00 05:59:59 r Neurology 20 l Elvin Gay 2021-12-10 2021-12-11 Outpatient nullFlavo MNA [id number] Memoria 22:15:00 05:59:59 r Neurology 20 l Elvin Gay 2021-12-10 2021-12-11 Outpatient nullFlavo MNA [id number] Memoria 22:15:00 05:59:59 r Neurology 20 l Elvin Gay 2021-12-10 2021-12-10 Outpatient JANEE Ortega [facility] [id number] 16:15:00 23:59:59 Ab 20 Abran 2021-12-10 2021-12-10 Outpatient [facility] [id number] 16:15:00 23:59:59 Ab 20 Abran 2021-12-10 2021-12-10 Ambulatory nullFlavo MNA [id number] Memoria 22:15:00 22:15:00 Pre-Reg r Neurology 17 l Elvin Gay 2021-12-10 2021-12-10 Ambulatory nullFlavo MNA [id number] Memoria 22:15:00 22:15:00 Pre-Reg r Neurology 17 l Elvin Gay 2021-12-10 2021-12-10 Ambulatory nullFlavo MNA [id number] Memoria 22:15:00 22:15:00 Pre-Reg r Neurology 17 l Elvin Gay 2021-12-10 2021-12-10 Outpatient MHIE MHIE [id number] Memoria 16:15:00 16:15:00 20 baldemar Gay 2021-12-10 2021-12-10 Outpatient MHIE MHIE [id number] Memoria 16:15:00 16:15:00 17 baldemar Gay 2021-12-10 2021-12-10 Outpatient MHIE MHIE [id number] Memoria 16:15:00 16:15:00 20 baldemar Gay 2021-12-10 2021-12-10 Outpatient MHIE MHIE [id number] Memoria 16:15:00 16:15:00 17 baldemar Gay 2021-12-10 2021-12-10 Outpatient JANEE Ortega [facility] [id number] 16:15:00 16:15:00 Ab 17 Abran 2021-12-10 2021-12-10 Outpatient JANEE Ortega [facility] [id number] 16:15:00 16:15:00 Ab 17 Abran 2021-11-30 2021-11-30 Treatment Beverly Cartagena 1.2.840.1 [id number] Methodi 09:00:00 10:00:00 Caprice [address]de [address] 3.430.2.7 Hospit a .3.139356 l .8 2021-11-30 2021-11-30 Treatment Beverly [place] Candice 1.2.840.1 [id number] Methodi 09:00:00 10:00:00 Caprice [address] 3.430.2.7 Hospit a .3.797903 l .8 2021-11-30 2021-11-30 Travel 1.2.840.1 1.2.052.451 9043 [id number] Methodi 00:00:00 00:00:[address] 3.430.2.7 0.2.7.3.698 Ho spita .3.783626 084.8 l .8 2021-11-30 2021-11-30 Travel 1.2.840.1 1.2.875.523 9852 [id number] Methodi 00:00:00 00:00:[address] 3.430.2.7 0.2.7.3.698 Ho spita .3.460614 084.8 l .8 2021-11-19 2021-11-20 Outpatient nullFlavo MNA [id number] Memoria 19:00:00 05:59:59 r Neurology 18 l Pettis Victor Hugo 2021-11-19 2021-11-20 Outpatient nullFlavo MNA [id number] Memoria 19:00:00 05:59:59 r Neurology 18 l Elvin Gay 2021-11-19 2021-11-20 Outpatient nullFlavo MNA [id number] Memoria 19:00:00 05:59:59 r Neurology 18 l Elvin Gay 2021-11-19 2021-11-19 Outpatient KEITH OrtegaSCHER KEITHSCHER [id number] 13:00:00 23:59:59 Ab 18 Abran 2021-11-19 2021-11-19 Outpatient KEITH OrtegaSCHER MHMISCHER [id number] 13:00:00 23:59:59 Ab 18 Abran 2021-11-19 2021-11-19 Outpatient MHIE MHIE [id number] Memoria 13:00:00 13:00:00 18 l Victor Hugo 2021-11-19 2021-11-19 Outpatient MHIE MHIE [id number] Memoria 13:00:00 13:00:00 18 l Victor Hugo 2021-11-18 2021-11-18 Treatment Beverly Cartagena Candice 1.2.840.1 [id number] Methodi 10:00:00 11:00:00 Nenita Marshall 95009.1.[address] 3.430.2.7 Hospit a .3.380446 l .8 2021-11-18 2021-11-18 Treatment Beverly Cartagena Candice 1.2.840.1 [id number] Methodi 10:00:00 11:00:00 Nenita Marshall 59638.1.[address] 3.430.2.7 Hospit a .3.244023 l .8 2021-11-17 2021-11-17 Evaluation Beverly Cartagena Candice 1.2.840. 1 [id number] Methodi 08:00:00 09:00:00 Caprice Landaverde 00280.1.[address] 3.430.2.7 Hospit a .3.463338 l .8 2021-11-17 2021-11-17 Evaluation Beverly Cartagena Candice 1.2.840. 1 [id number] Methodi 08:00:00 09:00:00 Cullers, Caprice 78759.1.[address] 3.430.2.7 Hospit a .3.210795 l .8 2021-11-17 2021-11-17 Plan of 1.2.840.1 464404076 [id number] 6417 Methodi 00:00:00 00:00:[address] Documentat 3.430.2.7 Hos rene ion .3.588318 l .8 2021-11-17 2021-11-17 Travel 1.2.840.1 1.2.745.711 3751 702747 Methodi 00:00:00 00:00:[address] 3.430.2.7 0.2.7.3.698 Ho spita .3.050708 084.8 l .8 2021-11-17 2021-11-17 Plan of 1.2.840.1 804834429 [id number] 8164 Methodi 00:00:00 00:00:[address] Documentat 3.430.2.7 Hos rene ion .3.757716 l .8 2021-11-17 2021-11-17 Travel 1.2.840.1 1.2.470.184 2529 896732 Methodi 00:00:00 00:00:[address] 3.430.2.7 0.2.7.3.698 Ho spita .3.591043 084.8 l .8 2021-11-12 2021-11-12 Transcribe Eulogio, 1.2.840.1 [id number] Methodi 00:00:00 00:00:00 Orders Beverly 59482.1.[address] Candice 3.430.2.7 Hospit a .3.269188 l .8 2021-11-12 2021-11-12 Travel 1.2.840.1 1.2.566.361 0095 121968 Methodi 00:00:00 00:00:[address] 3.430.2.7 0.2.7.3.698 Ho spita .3.124021 084.8 l .8 2021-11-12 2021-11-12 Transcribe Eulogio, 1.2.840.1 [id number] 840 [id number] Methodi 00:00:00 00:00:00 Orders Beverly 25005.1.[address] Candice 3.430.2.7 Hospit a .3.661777 l .8 2021-11-12 2021-11-12 Travel 1.2.840.1 1.2.491.945 1737 [id number] Methodi 00:00:00 00:00:[address] 3.430.2.7 0.2.7.3.698 Ho spita .3.358237 084.8 l .8 2021-09-04 2021-09-06 Outside nullFlavo MNA [id number] Memoria 14:17:35 04:59:59 Medical r Neurology 02 l Records Elvin Gay 2021-09-04 2021-09-06 Outside nullFlavo MNA [id number] Memoria 14:17:35 04:59:59 Medical r Neurology 02 l Records Elvin Gay 2021-09-04 2021-09-06 Outside nullFlavo MNA [id number] Memoria 14:17:35 04:59:59 Medical r Neurology 02 l Records Elvin Gay 2021-09-04 2021-09-05 Outpatient MHMISCHER MHMISCHER [id number] 09:17:35 23:59:59 02 2021-09-04 2021-09-05 Outpatient MHMISCHER MHMISCHER [id number] 09:17:35 23:59:59 02 2021-08-31 2021-08-31 Outpatient EULOGIO, [facility] [id number] [place] 00:00:00 00:00:00 BEVERLY [address] 2021-08-27 2021-08-27 Outpatient EULOGIO, [facility] [id number] [place] 00:00:00 00:00:00 BEVERLY [address] 2021-08-24 2021-08-26 Outside nullFlavo MNA [id number] Memoria 14:49:32 04:59:59 Medical r Neurology 01 l Records Elvin Gay 2021-08-24 2021-08-26 Outside nullFlavo MNA [id number] Memoria 14:49:32 04:59:59 Medical r Neurology 01 l Records Elvin Gay 2021-08-24 2021-08-26 Outside nullFlavo MNA [id number] Memoria 14:49:32 04:59:59 Medical r Neurology 01 l Records Elvin Gay 2021-08-24 2021-08-25 Outpatient MHMISCHER MHMISCHER [id number] 09:49:32 23:59:59 2021-08-24 2021-08-25 Outpatient MHMISCHER MHMISCHER [id number] 09:49:32 23:59:59 2021-08-24 2021-08-24 Outpatient EULOGIO, [facility] [id number] [place] 00:00:00 00:00:00 BEVERLY 384 Method i 2021-08-20 2021-08-20 Outpatient EULOGIO, [facility] [id number] [place] 00:00:00 00:00:00 BEVERLY 342 Method i 2021-08-19 2021-08-19 Outpatient EULOGIO, [facility] [id number] [place] 00:00:00 00:00:00 BEVERLY 343 Method i 2021-08-14 2021-08-14 Office Tony Das [facility] 1.2.840.114 [id number] [facility] 10:12:38 10:59:24 Visit Bhupinder Lopez 350.1.13.10 it y of Women's 4.2.7.2.686 [facility] [phone] [address] 2021-08-14 2021-08-14 Outpatient R TONY DAS [facility] [id number] [facility] 10:15:00 10:15:00 ity of [facility] 2021-08-10 2021-08-10 Outpatient EULOGIO, [facility] [id number] [place] 00:00:00 00:00:00 BEVERLY 230 Method i 2021-08-06 2021-08-06 Outpatient EULOGIO, [facility] [id number] [place] 00:00:00 00:00:00 BEVERLY 205 Method i 2021-07-30 2021-07-30 Outpatient EULOGIO, [facility] [id number] [place] 00:00:00 00:00:00 BEVERLY 805 Method i 2021-07-27 2021-07-27 Outpatient EULOGIO, [facility] [id number] [place] 00:00:00 00:00:00 BEVERLY 774 Method i 2021-07-23 2021-07-23 Outpatient EULOGIO, [facility] [id number] [place] 00:00:00 00:00:00 BEVERLY 727 Method i 2021-07-20 2021-07-20 Outpatient EULOGIO, [facility] [id number] [place] 00:00:00 00:00:00 BEVERLY 774 Method i 2021-07-09 2021-07-09 Outpatient EULOGIO, [facility] [id number] [place] 00:00:00 00:00:00 BEVERLY 643 Method i 2021-07-08 2021-07-08 Outpatient EULOGIO, [facility] [id number] [place] 00:00:00 00:00:00 BEVERLY 592 Method i 2021-07-02 2021-07-02 Outpatient EULOGIO, [facility] [id number] [place] 00:00:00 00:00:00 BEVERLY 982 Method i 2021-06-23 2021-06-23 Outpatient EULOGIO, [facility] [id number] [place] 00:00:00 00:00:00 BEVERLY 244 Method i 2021-06-09 2021-06-11 Inpatient EL Nirajeik, [facility] MEDI.01 [id number] [facility] 16:03:00 15:30:00 Reji [id number] [facility] 2021-06-09 2021-06-09 Outpatient Jason Bearden [facility] [id number] [id number] [facility] 16:08:00 16:08:00 79 [facility] 2021-04-08 2021-04-09 [place] [id number] Memoria 14:00:00 04:59:59 r Neurology 16 l Elvin Gay 2021-04-08 2021-04-09 Outpatient nullFlavo MNA [id number] Memoria 14:00:00 04:59:59 r Neurology 16 l Elvin Gay 2021-04-08 2021-04-09 Outpatient nullFlavo MNA [id number] Memoria 14:00:00 04:59:59 r Neurology 16 l Elvin Gay 2021-04-08 2021-04-08 Outpatient KEITH OrtegaSCHER MISCHER [id number] 09:00:00 23:59:59 Ab 16 Abran 2021-04-08 2021-04-08 Outpatient BINTA OrtegaMISCHER MHMISCHER [id number] 09:00:00 23:59:59 Ab 16 Abran 2021-04-08 2021-04-08 Outpatient MHIE MHIE [id number] Memoria 09:00:00 09:00:00 16 baldemar Gay 2021-04-08 2021-04-08 Outpatient MHIE MHIE [id number] Memoria 09:00:00 09:00:00 16 l Victor Hugo 2020-12-26 2020-12-28 Outside nullFlavo MNA [id number] Memoria 17:32:20 05:59:59 Medical r Neurology 00 l Records Elvin Gay 2020-12-26 2020-12-28 Outside nullFlavo MNA [id number] Memoria 17:32:20 05:59:59 Medical r Neurology 00 l Records Elvin Gay 2020-12-26 2020-12-28 Outside nullFlavo MNA [id number] Memoria 17:32:20 05:59:59 Medical r Neurology 00 l Records Elvin Gay 2020-12-26 2020-12-27 Outpatient MHMISCHER MHMISCHER [id number] 11:32:20 23:59:59 2020-12-26 2020-12-27 Outpatient MHMISCHER MHMISCHER [id number] 11:32:20 23:59:59 00 2020-12-22 2020-12-23 Outpatient nullFlavo MNA [id number] Memoria 20:30:00 05:59:59 r Neurology 15 l Elvin Gay 2020-12-22 2020-12-23 Outpatient nullFlavo MNA [id number] Memoria 20:30:00 05:59:59 r Neurology 15 baldemar Gay 2020-12-22 2020-12-23 Outpatient nullFlavo MNA [id number] Memoria 20:30:00 05:59:59 r Neurology 15 baldemar Gay 2020-12-22 2020-12-22 Outpatient Shannon MHMISCHER MHMISCHER [id number] 14:30:00 23:59:59 Ab 15 Abran 2020-12-22 2020-12-22 Outpatient Shannon MHMISCHER MHMISCHER [id number] 14:30:00 23:59:59 Ab 15 Abran 2020-12-22 2020-12-22 Outpatient MHIE MHIE [id number] Memoria 14:30:00 14:30:00 15 baldemar Gay 2020-12-22 2020-12-22 Outpatient MHIE MHIE [id number] Memoria 14:30:00 14:30:00 15 baldemar Gay 2020-12-04 2020-12-04 Ambulatory nullFlavo MNA [id number] Memoria 19:15:00 19:15:00 Pre-Reg r Neurology 14 baldemar Gay 2020-12-04 2020-12-04 Ambulatory nullFlavo MNA [id number] Memoria 19:15:00 19:15:00 Pre-Reg r Neurology 14 baldemar Gay 2020-12-04 2020-12-04 Ambulatory nullFlavo MNA [id number] Memoria 19:15:00 19:15:00 Pre-Reg r Neurology 14 baldemar Gay 2020-12-04 2020-12-04 Outpatient MHIE MHIE [id number] Memoria 13:15:00 13:15:00 14 baldemar Gay 2020-12-04 2020-12-04 Outpatient MHIE MHIE [id number] Memoria 13:15:00 13:15:00 14 baldemar Gay 2020-12-04 2020-12-04 Outpatient Shannon MHMISCHER MHMISCHER [id number] 13:15:00 13:15:00 Ab 14 Abran 2020-12-04 2020-12-04 Outpatient BINTA OrtegaMISCHER MHMISCHER [id number] 13:15:00 13:15:00 Ab 14 Abran 2020-09-30 2020-09-30 Outpatient EULOGIO [facility] [id number] [address] [place] [address] 00:00:00 00:00:00 BEVERLY Stoner Method i 2020-07-31 2020-08-01 Outpatient nullFlavo MNA [id number] Memoria 18:15:00 04:59:59 r Neurology 13 l Pettis Victor Hugo 2020-07-31 2020-08-01 Outpatient nullFlavo MNA [id number] Memoria 18:15:00 04:59:59 r Neurology 13 l Pettis [place] 2020-07-31 2020-08-01 Outpatient nullFlavo MNA [id number] Memoria 18:15:00 04:59:59 r Neurology 13 l Elvin Victor Hugo 2020-07-31 2020-07-31 Outpatient KEITH OrtegaSCHER MHMISCHER [id number] 13:15:00 23:59:59 Ab 13 Abran 2020-07-31 2020-07-31 Outpatient BINTA OrtegaMISCHER MHMISCHER [id number] 13:15:00 23:59:59 Ab 13 Abran 2020-07-31 2020-07-31 Outpatient MHIE MHIE [id number] Memoria 13:15:00 13:15:00 13 [facility] 2020-07-31 2020-07-31 Outpatient MHIE MHIE [id number] Memoria 13:15:00 13:15:00 13 [facility] 2020-07-29 2020-07-29 Ambulatory nullFlavo MNA [id number] Memoria 16:15:00 16:15:00 Pre-Reg r Neurology 12 l Pettis Victor Hugo 2020-07-29 2020-07-29 Ambulatory nullFlavo MNA [id number] Memoria 16:15:00 16:15:00 Pre-Reg r Neurology 12 l Pettis [place] 2020-07-29 2020-07-29 Ambulatory nullFlavo MNA [id number] Memoria 16:15:00 16:15:00 Pre-Reg r Neurology 12 l Pettis [place] 2020-07-29 2020-07-29 Outpatient BINTA OrtegaMISCHER MHMISCHER [id number] 11:15:00 11:15:00 Ab 12 Abran 2020-07-29 2020-07-29 Outpatient KEITH OrtegaSCHER MHMISCHER [id number] 11:15:00 11:15:00 Ab 12 Abran 2020-06-06 2020-06-06 Ambulatory nullFlavo MNA [id number] Memoria 18:00:00 18:00:00 Pre-Reg r Neurology 11 l Pettis [place] 2020-06-06 2020-06-06 Ambulatory nullFlavo MNA [id number] Memoria 18:00:00 18:00:00 Pre-Reg r Neurology 11 l Pettis [place] 2020-06-06 2020-06-06 Ambulatory nullFlavo MNA [id number] Memoria 18:00:00 18:00:00 Pre-Reg r Neurology 11 l Pettis [place] 2020-06-06 2020-06-06 Outpatient MHIE MHIE [id number] Memoria 13:00:00 13:00:00 12 l Victor Hugo 2020-06-06 2020-06-06 Outpatient MHIE MHIE [id number] Memoria 13:00:00 13:00:00 11 l [place] 2020-06-06 2020-06-06 Outpatient MHIE MHIE [id number] Memoria 13:00:00 13:00:00 12 l Victor Hugo 2020-06-06 2020-06-06 Outpatient MHIE MHIE [id number] Memoria 13:00:00 13:00:00 11 l Victor Hugo 2020-06-06 2020-06-06 Outpatient KEITH OrtegaSCHER MHMISCHER [id number] 13:00:00 13:00:00 Ab 11 Abran 2020-06-06 2020-06-06 Outpatient BINTA OrtegaMISCHER MHMISCHER [id number] 13:00:00 13:00:00 Ab 11 Abran 2020-03-12 2020-03-13 Outpatient nullFlavo MNA [id number] Memoria 18:45:00 04:59:59 r Neurology 09 l Pettis Victor Hugo 2020-03-12 2020-03-13 Outpatient nullFlavo MNA [id number] Memoria 18:45:00 04:59:59 r Neurology 09 l Pettis Victor Hugo 2020-03-12 2020-03-13 Outpatient nullFlavo MNA [id number] Memoria 18:45:00 04:59:59 r Neurology 09 l Elvin [place] 2020-03-12 2020-03-[address] [id number] 13:45:00 23:59:59 Ab 09 [facility] 2020-03-12 2020-03-[address] [id number] 13:45:00 23:59:59 Ab 09 [facility] 2020-03-12 2020-03-12 Outpatient MHIE MHIE [id number] Memoria 13:45:00 13:45:00 09 l [place] 2020-03-12 2020-03-12 Outpatient MHIE MHIE [id number] Memoria 13:45:00 13:45:00 09 baldemar [place] 2020-01-22 2020-01-23 Outpatient nullFlavo MNA [id number] Memoria 17:45:00 05:59:59 r Neurology 10 l Pettis [place] 2020-01-22 2020-01-23 Outpatient nullFlavo MNA [id number] Memoria 17:45:00 05:59:59 r Neurology 10 l Pettis [place] 2020-01-22 2020-01-23 Outpatient nullFlavo MNA [id number] Memoria 17:45:00 05:59:59 r Neurology 10 l Elvin [place] 2020-01-22 2020-01-[address] [id number] 11:45:00 23:59:59 Ab 10 [facility] 2020-01-22 2020-01-[address] [id number] 11:45:00 23:59:59 Ab 10 [facility] 2020-01-22 2020-01-22 Outpatient MHIE MHIE [id number] Memoria 11:45:00 11:45:00 10 l [place] 2020-01-22 2020-01-22 Outpatient MHIE MHIE [id number] Memoria 11:45:00 11:45:00 10 [facility] 2020-01-11 2020-01-12 Outpatient nullFlavo MNA [id number] Memoria 20:15:00 05:59:59 r Neurology 08 l Pettis Victor Hugo 2020-01-11 2020-01-12 Outpatient nullFlavo MNA [id number] Memoria 20:15:00 05:59:59 r Neurology 08 l Pettis Victor Hugo 2020-01-11 2020-01-12 Outpatient nullFlavo MNA [id number] Memoria 20:15:00 05:59:59 r Neurology 08 l Pettis [place] 2020-01-11 2020-01-11 Outpatient KEITH OrtegaSCHER MHMISCHER [id number] 14:15:00 23:59:59 Ab 08 2020-01-11 2020-01-11 Outpatient KEITH OrtegaSCHER MHMISCHER [id number] 14:15:00 23:59:59 Ab 08 Abran 2020-01-11 2020-01-11 Ambulatory nullFlavo MNA [id number] Memoria 20:15:00 20:15:00 Pre-Reg r Neurology 07 l Pettis Victor Hugo 2020-01-11 2020-01-11 Ambulatory nullFlavo MNA [id number] Memoria 20:15:00 20:15:00 Pre-Reg r Neurology 07 l Pettis Victor Hugo 2020-01-11 2020-01-11 Ambulatory nullFlavo MNA [id number] Memoria 20:15:00 20:15:00 Pre-Reg r Neurology 07 l Pettis [place] 2020-01-11 2020-01-11 Outpatient MHIE MHIE [id number] Memoria 14:15:00 14:15:00 08 baldemar [place] 2020-01-11 2020-01-11 Outpatient MHIE MHIE [id number] Memoria 14:15:00 14:15:00 07 [facility] 2020-01-11 2020-01-11 Outpatient MHIE MHIE [id number] Memoria 14:15:00 14:15:00 08 baldemar [place] 2020-01-11 2020-01-11 Outpatient MHIE MHIE [id number] Memoria 14:15:00 14:15:00 07 baldemar Victor Hugo 2020-01-11 2020-01-11 Outpatient KEITH OrtegaSCHER MHMISCHER [id number] 14:15:00 14:15:00 Ab 07 Abran 2020-01-11 2020-01-11 Outpatient KEITH OrtegaSCHER MHMISCHER [id number] 14:15:00 14:15:00 Ab 07 Abran 2019-12-06 2019-12-07 Outpatient nullFlavo MNA [id number] Memoria 22:00:00 05:59:59 r Neurology 06 l Elvin Gay 2019-12-06 2019-12-07 Outpatient nullFlavo MNA [id number] Memoria 22:00:00 05:59:59 r Neurology 06 l Elvin Gay 2019-12-06 2019-12-07 Outpatient nullFlavo MNA [id number] Memoria 22:00:00 05:59:59 r Neurology 06 l Elvin Gay 2019-12-06 2019-12-[address] [facility] [id number] 16:00:00 23:59:59 Ab 06 Abran 2019-12-06 2019-12-06 Outpatient Shannon MISCHER MHMISCHER [id number] 16:00:00 23:59:59 Ab 06 Abran 2019-12-06 2019-12-06 Outpatient MHIE MHIE [id number] Memoria 16:00:00 16:00:00 06 baldemar Gay 2019-12-06 2019-12-06 Outpatient MHIE MHIE [id number] Memoria 16:00:00 16:00:00 06 baldemar Gay 2019-12-05 2019-12-05 Ambulatory nullFlavo MNA [id number] Memoria 14:15:00 14:15:00 Pre-Reg r Neurology 05 l Elvin Gay 2019-12-05 2019-12-05 Ambulatory nullFlavo MNA [id number] Memoria 14:15:00 14:15:00 Pre-Reg r Neurology 05 l Elvin Gay 2019-12-05 2019-12-05 Ambulatory nullFlavo MNA [id number] Memoria 14:15:00 14:15:00 Pre-Reg r Neurology 05 l Pettischiara Gay 2019-12-05 2019-12-05 Outpatient MHIE MHIE [id number] Memoria 08:15:00 08:15:00 05 l Victor Hugo 2019-12-05 2019-12-05 Outpatient MHIE MHIE [id number] Memoria 08:15:00 08:15:00 05 baldemar Gay 2019-12-05 2019-12-[address] [facility] [id number] 08:15:00 08:15:00 Ab 05 Abran 2019-12-05 2019-12-05 Outpatient KEITH OrtegaSCHER MHMISCHER [id number] 08:15:00 08:15:00 Ab 05 Abran 2019-11-16 2019-11-16 Ambulatory nullFlavo MNA [id number] Memoria 19:00:00 19:00:00 Pre-Reg r Neurology 03 baldemar Oconnor [place] 2019-11-16 2019-11-16 Ambulatory nullFlavo MNA [id number] Memoria 19:00:00 19:00:00 Pre-Reg r Neurology 03 baldemar Oconnor Victor Hugo 2019-11-16 2019-11-16 Ambulatory nullFlavo MNA [id number] Memoria 19:00:00 19:00:00 Pre-Reg r Neurology 03 baldemar Oconnor [place] 2019-11-16 2019-11-16 Outpatient MHIE MHIE [id number] Memoria 13:00:00 13:00:00 03 baldemar [place] 2019-11-16 2019-11-16 Outpatient MHIE MHIE [id number] Memoria 13:00:00 13:00:00 03 baldemar [place] 2019-11-16 2019-11-16 Outpatient Shannon MHMISCHER MHMISCHER [id number] 13:00:00 13:00:00 Ab 03 Abran 2019-11-16 2019-11-16 Outpatient Shannon MHMISCHER MHMISCHER [id number] 13:00:00 13:00:00 Ab 03 Abran 2019-11-09 2019-11-10 Outpatient nullFlavo MNA [id number] Memoria 17:30:00 05:59:59 r Neurology 04 l Pettischiara Gay 2019-11-09 2019-11-10 Outpatient nullFlavo MNA [id number] Memoria 17:30:00 05:59:59 r Neurology 04 l Pettis Victor Hugo 2019-11-09 2019-11-10 Outpatient nullFlavo MNA [id number] Memoria 17:30:00 05:59:59 r Neurology 04 l Pettis Victor Hugo 2019-11-09 2019-11-09 Outpatient BINTA OrtegaMISCHER MHMISCHER [id number] 11:30:00 23:59:59 Ab 04 Abran 2019-11-09 2019-11-09 Outpatient BINTA OrtegaMISCHER MISCHER [id number] 11:30:00 23:59:59 Ab 04 Abran 2019-11-09 2019-11-09 Outpatient MHIE MHIE [id number] Memoria 11:30:00 11:30:00 04 baldemar Gay 2019-11-09 2019-11-09 Outpatient MHIE MHIE [id number] Memoria 11:30:00 11:30:00 04 baldemar Victor Hugo 2019-09-19 2019-09-20 Outpatient nullFlavo MNA [id number] Memoria 18:00:00 04:59:59 r Neurology 02 baldemar Oconnor [place] Hugo 2019-09-19 2019-09-20 Outpatient nullFlavo MNA [id number] Memoria 18:00:00 04:59:59 r Neurology 02 baldemar Oconnor Victor Hugo 2019-09-19 2019-09-20 Outpatient nullFlavo MNA [id number] Memoria 18:00:00 04:59:59 r Neurology 02 baldemar Pettis [place] 2019-09-19 2019-09-19 Outpatient BINTA OrtegaWASCHER MISCHER [id number] 13:00:00 23:59:59 Ab 02 Abran 2019-09-19 2019-09-19 Outpatient BINTA OrtegaWASCHER MHMISCHER [id number] 13:00:00 23:59:59 Ab 02 Abran 2019-09-19 2019-09-19 Outpatient MHIE MHIE [id number] Memoria 13:00:00 13:00:00 02 baldemar [place] 2019-09-19 2019-09-19 Outpatient MHIE MHIE [id number] Memoria 13:00:00 13:00:00 02 baldemar Victor Hugo 2019-08-23 2019-08-24 Outpatient nullFlavo MNA [id number] Memoria 18:30:00 04:59:59 r Neurology 01 baldemar Pettis [place] 2019-08-23 2019-08-24 Outpatient nullFlavo MNA [id number] Memoria 18:30:00 04:59:59 r Neurology 01 baldemar Pettis [place] 2019-08-23 2019-08-24 Outpatient nullFlavo MNA [id number] Memoria 18:30:00 04:59:59 r Neurology 01 baldemar ButlerPettis Victor Hugo 2019-08-23 2019-08-23 Outpatient KEITH OrtegaSCHER MHMISCHER [id number] 13:30:00 23:59:59 Ab Abran 2019-08-23 2019-08-23 Outpatient KEITH OrtegaSCHER MHDANIELLESCHER [id number] 13:30:00 23:59:59 Ab Abran 2019-08-23 2019-08-23 Outpatient MHIE BINTAIE [id number] Memoria 13:30:00 13:30:00 01 l Victor Hugo 2019-08-23 2019-08-23 Outpatient MHIE MHIE [id number] Memoria 13:30:00 13:30:00 01 l Victor Hugo 2019-07-18 2019-07-19 Outpatient nullFlavo MNA [id number] Memoria 14:15:00 04:59:59 r Neurology 00 l Elvin Gay 2019-07-18 2019-07-19 Outpatient nullFlavo MNA [id number] Memoria 14:15:00 04:59:59 r Neurology 00 l Elvin Gay 2019-07-18 2019-07-19 Outpatient nullFlavo MNA [id number] Memoria 14:15:00 04:59:59 r Neurology 00 l Elvin Gay 2019-07-18 2019-07-18 Outpatient KEITH OrtegaSCHER MHMISCHER [id number] 09:15:00 23:59:59 Ab 00 Abran 2019-07-18 2019-07-18 Outpatient KEITH OrtegaSCHER MHDANIELLESCHER [id number] 09:15:00 23:59:59 Ab 00 Abran 2019-07-18 2019-07-18 Outpatient BINTAIE BINTAIE [id number] Memoria 09:15:00 09:15:00 00 baldemar Gay 2019-07-18 2019-07-18 Outpatient MHIE BINTAIE [id number] Memoria 09:15:00 09:15:00 00 baldemar Gay Results Test Description Test Time Test Comments Results Result Comments Source INFECTION CONTROL PROFILE 2021-06-13 18:10:00 Test Item Value Reference Range Interpretation Comme nts HEPATITIS C RNA BY Negative Negative Negative: HCV RNA Not PCR-QUAL (test code = Detect edPerformed At: BN HCVRNAPCR) [facility] [place] [id number] [facility] [place], [place] [id number] ra Danielle SALINAS Ph:[phone] AG HEPATITIS B SURFACE NON REACTIVE INDEX NonReactive (test code = HBSAG) AB HIV 1 2 (test code = NONREACTIVE INDEX NONREACTIVE GQG34FT) HIV 1/2 RAPID SCREEN NONREACTIVE NONREACTIVE Critic al result called to (test code = NHR20CHW) TED BROTHERS RN/Foreign ColonLAB.UN at 165 9 06/09/21Nurse r ead back resut and tech confir med it's correct? Y AG HIV1 P24 (test code NONREACTIVE NONREACTIVE = SKX6O30) BASIC METABOLIC [id number] 07:47:00 Test Item Value Reference Range Interpretation [...] code = 9.0 mg/dL 8.0-10.5 N CA) [id number] 07:47:00 Test Item Value Reference Range Interpretation Comments MAGNESIUM (test code = MAG) 1.91 mg/dL 1.80-2.40 N CBC W/AUTO [id number] 07:13:00 Test Item Value Reference Range Interpretation [...] (test NO code = MDIFF) INFECTION CONTROL [id number] 17:05:00 Test Item Value Reference Range Interpretation Comments HEPATITIS C RNA BY PCR-QUAL (test code = HCVRNAPCR) AG HEPATITIS B NON REACTIVE INDEX NonReactive SURFACE (test code = HBSAG) AB HIV 1 2 (test NONREACTIVE INDEX NONREACTIVE code = APU00TJ) HIV 1/2 RAPID NONREACTIVE NONREACTIVE Critical resu lt SCREEN (test code called to KEHINDE = [id number]) ANGELA BROTHERS/Riya brewer G.LAB.UN at 165 9 06/09/21Nurse read back resut and tech confirmed it's correct? Y AG HIV1 P24 (test NONREACTIVE NONREACTIVE code = ITM7G02) INFECTION CONTROL [id number] 17:01:00 Test Item Value Reference Range Interpretation Comments HEPATITIS C RNA BY PCR-QUAL (test code = HCVRNAPCR) AG HEPATITIS B INDEX NonReactive SURFACE (test code = HBSAG) AB HIV 1 2 (test code INDEX NONREACTIVE = FZZ39DQ) HIV 1/2 RAPID SCREEN NONREACTIVE NONREACTIVE Critic al result (test code = called to TED A [id number]) ANGELA BROTHERS/Riya brewer G.LAB.UN at 165 9 06/09/21Nurse r ead back resut and tech confirmed it's correct? Y AG HIV1 P24 (test NONREACTIVE NONREACTIVE code = OYN2C16) COVID 19 Asymptomatic IH [id number] 13:43:00 Test Item Value Reference Range Interpretation [...] waivedcomplexit y tests. 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 Comparison: 03/08/2019. Impression: Chest, 2 views. No consolidation, pleural effusion, or pneumothorax. Cardiac silhouetteis of normal size. No acute osseous abnormality. Thoracic spinal stimulating device is in place. SL: [id number] at 1306 Reportedand signed by: Brian Mendes M.D. CC: Anahi Chaves MD; Beverly Cartagena MD; Katherine Ma NP Technologist: Elisa CoronadoRT(R) Trnscrd Date/Time/By: 06/08/2021 (3903) : By: [email or web address] Orig Print D/T: S: 06/08/2021 (8228) PAGE 1 Signed ReportBASIC METABOLIC [id number] 11:59:00 Test Item Value Reference Range Interpretation [...] 8.9 mg/dL 8.0-10.5 N CA) CBC W/AUTO [id number] 11:55:00 Test Item Value Reference Range Interpretation [...] code NO = MDIFF) AFB CULTURE + [id number] 12:03:00 Test Item Value Reference Range Interpretation Comments CULTURE (BEAKER) (test No acid-fast bacilli code = 1095) isolated in 42 days AFB SMEAR (BEAKER) No acid fast bacilli (test code = 994) seen FUNGUS CULTURE + [id number] 18:46:00 Test Item Value Reference Range Interpretation Comments CULTURE (BEAKER) A 1+ Jo-Ann albicans (test code = 1095) FUNGUS SMEAR No fungi seen (BEAKER) (test code = 1406) MISCELLANEOUS LAB [id number] 07:43:00 Test Item Value Reference Range Interpretation Comments SCAN RESULT (test code = 2154900) CBC W/PLT COUNT & AUTO [id number] 11:31:00 Test Item Value Reference Range Interpretation [...] PERCENT (BEAKER) (test code = 2801) POCT-GLUCOSE [id number] 08:15:00 Test Item Value Reference Range Interpretation Comments POC-GLUCOSE METER 87 mg/dL 70-110 : TESTED A T [facility] 6720 (BEAKER) (test code = [place], 1538) 08969: Slider Assembler/Techni theo ID = [id number] for GINNY PULIDO [id number] 08:08:00 Test Item Value Reference Range Interpretation Comments MAGNESIUM (BEAKER) 1.6 mg/dL 1.6-2.6 Specimen slightly (test code = 627) hemolyzed COMPREHENSIVE METABOLIC [id number] 08:08:00 Test Item Value Reference Range Interpretation [...] NOT APPLICABLE FOR DIALYSIS PATIEN TS. POCT-GLUCOSE [id number] 23:32:00 Test Item Value Reference Range Interpretation Comments POC-GLUCOSE METER 98 mg/dL 70-110 : TESTED A T [facility] 6720 (BEAKER) (test code = [facility], 1538) 56593: Slider Assembler/Techni theo ID = [id number] for REYN OLDS, PATEL POCT-GLUCOSE [id number] 17:52:00 Test Item Value Reference Range Interpretation Comments POC-GLUCOSE METER 88 mg/dL 70-110 : TESTED A T [facility] 6720 (BEAKER) (test code = [facility], 1538) 79523: Slider Assembler/Techni theo ID = [id number] for DOBB INS, ZAK POCT-GLUCOSE [id number] 11:53:00 Test Item Value Reference Range Interpretation Comments POC-GLUCOSE METER 161 mg/dL 70-110 H : TESTED A T [facility] 6720 (BEAKER) (test code = [facility], 1538) 73090: Slider Assembler/Techni theo ID = [id number] for DO BBINS, ZAK BRONCHIAL CULTURE + GRAM [id number] 10:38:00 Test Item Value Reference Range Interpretation Comments CULTURE (BEAKER) (test See comment code = 1095) GRAM STAIN RESULT 2+ White blood cells (BEAKER) (test code = seen 1123) GRAM STAIN RESULT No organisms seen (BEAKER) (test code = 595791) 1+ YeastRAD, CHEST, 1 VIEW, NON [id number] 08:59:00Reason for exam:- >endotracheal intubationShould this be performed at the bedside?->YesFINAL REPORT Chest, one view History: Respiratory failure Comparison: 10/13/2019 Findings:Moderate bilateral interstitial opacities, similar to previous examination. This could represent atypical infectious process or pulmonary edema. Normal size heart. No pleural effusion or pneu mothorax. Postsurgical changes of recent open reduction/internal fixation of the left clavicle. Impression:No significant interval change. Signed: Jerrell Silva MDReport Verified Date/Time: 10/14/2019 08:59:12 Reading Location: [address] Transitional Reading Room [id number] 08:38:00 Test Item Value Reference Range Interpretation Comments MAGNESIUM (BEAKER) 2.0 mg/dL 1.6-2.6 Specimen slightly (test code = 627) hemolyzed COMPREHENSIVE METABOLIC [id number] 08:38:00 Test Item Value Reference Range Interpretation [...] PATIEN TS. CBC W/PLT COUNT & AUTO [id number] 08:23:00 Test Item Value Reference Range Interpretation [...] PERCENT (BEAKER) (test code = 2801) POCT-GLUCOSE [id number] 07:07:00 Test Item Value Reference Range Interpretation Comments POC-GLUCOSE METER 84 mg/dL 70-110 : TESTED A T [facility] 6720 (BEAKER) (test code = [place], 1538) 91573: Slider Assembler/Techni theo ID = [id number] for Kamille Magana BLOOD GAS, [id number] 04:38:00 Test Item Value Reference Range Interpretation [...] (test code = 1819) 36.0 % POCT-GLUCOSE [id number] 01:19:00 Test Item Value Reference Range Interpretation Comments POC-GLUCOSE METER 152 mg/dL 70-110 H : TESTED A T [facility] 6720 (BEAKER) (test code = [facility], 1538) 75480: Slider Assembler/Techni theo ID = [id number] for Kamille Garcia BLOOD [id number] 19:01:00 Test Item Value Reference Range Interpretation Comments CULTURE (BEAKER) (test No growth in 5 days code = 1095) POCT-GLUCOSE [id number] 18:11:00 Test Item Value Reference Range Interpretation Comments POC-GLUCOSE METER 82 mg/dL 70-110 : TESTED A T [facility] 6720 (BEAKER) (test code = [facility], 1538) 25455: Slider Assembler/Techni theo ID = [id number] for DOBB INS, ZAK POCT-GLUCOSE [id number] 12:34:00 Test Item Value Reference Range Interpretation Comments POC-GLUCOSE METER 87 mg/dL 70-110 : TESTED A T [facility] 6720 (BEAKER) (test code = [facility], 1538) 76535: Slider Assembler/Techni theo ID = [id number] for SAND ERS, GIDEON CBC W/PLT COUNT & AUTO [id number] 09:13:00 Test Item Value Reference Range Interpretation [...] 0-1 PERCENT (BEAKER) (test code = 2801) [id number] 06:55:00 Test Item Value Reference Range Interpretation Comments MAGNESIUM (BEAKER) (test code = 1.8 mg/dL 1.6-2.6 627) COMPREHENSIVE METABOLIC [id number] 06:55:00 Test Item Value Reference Range Interpretation [...] APPLICABLE FOR DIALYSIS PATIEN TS. BLOOD GAS, [id number] 06:41:00 Test Item Value Reference Range Interpretation [...] 28.0 % RAD, CHEST, 1 VIEW, NON [id number] 04:40:00Reason for exam:->endotracheal intubationShould this be performed [...] changes of the left clavicle.. Signed: Carolynn Rodríguezort Verified Date/Time: 10/13/2019 04:40:52 POCT-GLUCOSE METER 2019-10-13 00:24:00 Test Item Value Reference Range Interpretation Comments POC-GLUCOSE METER 107 mg/dL 70-110 : TESTED A T [facility] 6720 (BEAKER) (test code = [facility], 1538) 69949: Slider Assembler/Techni theo ID = [id number] for Dianna Wetzel RAD, MANDIBLE, MIN 4 [id number] 17:22:00Reason for exam:->Liver Transplant EvaluationShould this be [...] MDReport Verified Date/Time: 10/12/2019 17:22:01 Reading Location: [facility] Reading Room POCT-GLUCOSE [id number] 12:42:00 Test Item Value Reference Range Interpretation Comments POC-GLUCOSE METER 119 mg/dL 70-110 H : TESTED A T [facility] 6720 (BEAKER) (test code = [facility] Tasia [facility], 1538) 49637: Slider Assembler/Techni theo ID = [id number] for alverto Tyler RAD, CHEST, 1 VIEW, NON [id number] 09:14:00Reason for exam:->endotracheal intubationShould this be performed [...] MDReport Verified Date/Time: 10/12/2019 09:14:48 Reading Location: [facility] Radiology Reading Room [id number] 04:39:00 Test Item Value Reference Range Interpretation Comments MAGNESIUM (BEAKER) (test code = 1.8 mg/dL 1.6-2.6 627) COMPREHENSIVE METABOLIC [id number] 04:39:00 Test Item Value Reference Range Interpretation [...] PATIEN TS. CBC W/PLT COUNT & AUTO [id number] 04:18:00 Test Item Value Reference Range Interpretation [...] (BEAKER) (test code = 2801) BLOOD GAS, [id number] 04:17:00 Test Item Value Reference Range Interpretation [...] (test code = 1819) 30.0 % SPIN/CONCENTRATION [id number] 01:15:00 Test Item Value Reference Range Interpretation Comments CONCENTRATION CHARGED (BEAKER) (test Done code = 2657) BODY FLUID CELL COUNT WITH [id number] 18:00:00 Test Item Value Reference Range Interpretation [...] (test code = 2873) EEG AWAKE AND [id number] 17:00:00Reason for exam:->acute encephalopathyShould this be performed at the bedside?->YesDate(s) of EE10/11/2019 DATE OF REPORT: 10/11/2019ACC: [id number] Number: [id number] Location: Inpatient ICUStart time: 10/11/2019 16:09Stop time: 10/11/2019 16:31ICD-10: R41.82 CPT Code: 67366 HISTORY: 54 y.o. female with hypertension, chronic [...] of this report.Jermaine Walton MD, PhDAttending NeurophysiologistCHI [place], [place] SPUTUM CULTURE + GRAM [id number] 15:43:00 Test Item Value Reference Range Interpretation Comments CULTURE (BEAKER) 4+ Normal respiratory (test code = 1095) candy present GRAM STAIN RESULT 2+ White blood cells (BEAKER) (test code = seen 1123) GRAM STAIN RESULT 0-5 epithelial cells (BEAKER) (test code = 37718) GRAM STAIN RESULT 1+ gram positive rods (BEAKER) (test code = 75367) GRAM STAIN RESULT <1+ yeast (BEAKER) (test code = 716568) MISCELLANEOUS LAB [id number] 08:34:00 Test Item Value Reference Range Interpretation Comments SCAN RESULT (test code = 3885239) RAD, CHEST, 1 VIEW, NON [id number] 07:51:00Reason for exam:->endotracheal intubationShould this be performed [...] MDReport Verified Date/Time: 10/11/2019 07:51:10 Reading Location: [facility] Radiology Reading Room BLOOD [id number] 07:00:00 Test Item Value Reference Range Interpretation Comments CULTURE (BEAKER) (test No growth in 5 days code = 1095) BLOOD [id number] 07:00:00 Test Item Value Reference Range Interpretation Comments CULTURE (BEAKER) (test No growth in 5 days code = 1095) POCT-GLUCOSE [id number] 05:51:00 Test Item Value Reference Range Interpretation Comments POC-GLUCOSE METER 103 mg/dL 70-110 : TESTED A T [facility] 6720 (BEAKER) (test code = [place], 1538) 76964: Slider Assembler/Techni theo ID = [id number] for SHARI BAJWA BLOOD GAS, [id number] 04:55:00 Test Item Value Reference Range Interpretation [...] (BEAKER) (test code = 1819) 40.0 % [id number] 04:46:00 Test Item Value Reference Range Interpretation Comments MAGNESIUM (BEAKER) (test code = 2.2 mg/dL 1.6-2.6 627) COMPREHENSIVE METABOLIC [id number] 04:46:00 Test Item Value Reference Range Interpretation [...] PATIEN TS. CBC W/PLT COUNT & AUTO [id number] 04:11:00 Test Item Value Reference Range Interpretation [...] PERCENT (BEAKER) (test code = 2801) POCT-GLUCOSE [id number] 23:55:00 Test Item Value Reference Range Interpretation Comments POC-GLUCOSE METER 118 mg/dL 70-110 H : TESTED A T [facility] 6720 (BEAKER) (test code = [facility], 153) 11789: Slider Assembler/Techni theo ID = [id number] for SHARI BAJWA POCT-GLUCOSE [id number] 17:40:00 Test Item Value Reference Range Interpretation Comments POC-GLUCOSE METER 142 mg/dL 70-110 H : TESTED A T [facility] 6720 (BEAKER) (test code = [facility], 1538) 87995: Slider Assembler/Techni theo ID = [id number] for Gr ant, Tieara POCT-GLUCOSE [id number] 12:30:00 Test Item Value Reference Range Interpretation Comments POC-GLUCOSE METER 114 mg/dL 70-110 H : TESTED A T [facility] 6720 (BEAKER) (test code = [facility], 153) 61932: Slider Assembler/Techni theo ID = [id number] for Gr ant, Tieara HIV-1 PCR, [id number] 11:07:00 Test Item Value Reference Range Interpretation Comments HIV-1 RESULT HIV RNA not detected HIV RNA not detected COMPONENT (BEAKER) (test code = 2703) This test uses a Real-Time Polymerase Chain Reaction (RT-PCR) methodology to detect a highly conserved region of the HIV-1 gag gene and was performed using the CHRISTINA AmpliPrep/CHRISTINA TaqMan HIV-1 test kit version 2.0 ([employer]Reportable range for this assay is 20 - 10,000,000 copies per mL (1.3 - 7.0 Log copies/mL).[id number] 08:14:00 Test Item Value Reference Range Interpretation Comments T3 TOTAL (JASON) (test code = 656) 36 ng/dL 48-159 L RAD, CHEST, 1 VIEW, NON [id number] 07:15:00Reason for exam:->endotracheal intubationShould this be performed [...] MDReport Verified Date/Time: 10/10/2019 07:15:28 Reading Location: [facility] Radiology Reading Room POCT- GLUCOSE [id number] 06:26:00 Test Item Value Reference Range Interpretation Comments POC-GLUCOSE METER 103 mg/dL 70-110 : TESTED A T [facility] 6720 (JASON) (test code = [place], 1538) 03047: Slider Assembler/Techni theo ID = [id number] for SUSIE TRUONG [id number] 05:32:00 Test Item Value Reference Range Interpretation Comments D-DIMER QUANTITATIVE (JASON) > MG/L FEU <0.50 H (test code [...] within 95-100% range.CBC W/PLT COUNT & AUTO [id number] 05:23:00 Test Item Value Reference Range Interpretation [...] 0-1 PERCENT (BEAKER) (test code = 2801) [id number] 05:10:00 Test Item Value Reference Range Interpretation [...] is 2.5-3.5 for patients wiht mechanical heart valves.[id number] 05:10:00 Test Item Value Reference Range Interpretation Comments PHOSPHORUS (BEAKER) (test code = 3.3 mg/dL 2.3-4.7 604) [id number] 05:10:00 Test Item Value Reference Range Interpretation Comments MAGNESIUM (BEAKER) (test code = 2.3 mg/dL 1.6-2.6 627) COMPREHENSIVE METABOLIC [id number] 05:10:00 Test Item Value Reference Range Interpretation [...] S NOT APPLICABLE FOR DIALYSIS PATIEN TS. [id number] 05:08:00 Test Item Value Reference Range Interpretation Comments FIBRINOGEN LEVEL (BEAKER) (test 275 mg/dl 225-434 code = 658) PROTHROMBIN [id number] 05:07:00 Test Item Value Reference Range Interpretation [...] 2.5-3.5 for patients wiht mechanical heart valves.CALCIUM, [id number] 04:59:00 Test Item Value Reference Range Interpretation Comments CALCIUM IONIZED (BEAKER) (test 1.20 mmol/L 1.12-1.27 code = 698) PH, BLOOD (BEAKER) (test code = 7.37 1810) BLOOD GAS, [id number] 04:55:00 Test Item Value Reference Range Interpretation [...] (test code = 1819) 40.0 % POCT-GLUCOSE [id number] 00:46:00 Test Item Value Reference Range Interpretation Comments POC-GLUCOSE METER 90 mg/dL 70-110 : TESTED A T [facility] 6720 (BEAKER) (test code = LIV Do[place] [facility], 1538) 73534: Slider Assembler/Techni theo ID = [id number] for SUSIE LISA MRSA [id number] 19:33:00 Test Item Value Reference Range Interpretation Comments CULTURE (BEAKER) (test code No MRSA isolated = 1095) PROTHROMBIN TIME/[id number] 18:00:00 Test Item Value Reference Range Interpretation [...] is 2.5-3.5 for patients wiht mechanical heart valves.PT/[id number] 18:00:00 Test Item Value Reference Range Interpretation [...] is 2.5-3.5 for patients wiht mechanical heart valves.[id number] 17:55:00 Test Item Value Reference Range Interpretation Comments MAGNESIUM (BEAKER) (test code = 1.9 mg/dL 1.6-2.6 627) BASIC METABOLIC [id number] 17:55:00 Test Item Value Reference Range Interpretation [...] APPLICABLE FOR DIALYSIS PATIEN TS. CYTOMEGALOVIRUS ANTIBODY, [id number] 16:41:00 Test Item Value Reference Range Interpretation Comments CYTOMEGALOVIRUS, IGG (BEAKER) Negative Negative, Equivocal (test code = 3429) CMV IgG Result Interpretation: </= 0.8 Al Negative 0.9-1.0 Al Equivocal >/=1.1 Al PositiveCYTOMEGALOVIRUS ANTIBODY, [id number] 16:41:00 Test Item Value Reference Range Interpretation Comments CYTOMEGALOVIRUS IGM ANTIBODY Negative Negative, Equivocal (BEAKER) (test code = 3437) CMV IgM Result Interpretation: </= 0.8 Al Negative 0.9-1.0 Al Equivocal >/= 1.1 Al PositiveEBV ANTIBODY, [id number] 16:41:00 Test Item Value Reference Range Interpretation Comments JAMA ROUSE VIRAL CAPSID Positive Negative, Equivocal A ANTIGEN IGG ([place]) (test code = 3415) Jama Rouse Viral Capsid Antigen IgG Result Interpretation: </= 0.8 Al Negative 0.9-1.0 Al Equivocal >/= 1.1 Al PositiveEBV ANTIBODY, [id number] 16:41:00 Test Item Value Reference Range Interpretation Comments JAMA ROUSE VIRAL CAPSID Positive Negative, Equivocal A ANTIGEN IGM ([place]) (test code = 3418) Jama Rouse Viral Capsid Antigen IgM Result Interpretation: </= 0.8 Al Negative 0.9-1.0 Al Equivocal >/= 1.1 Al PositivePOCT-GLUCOSE [id number] 16:15:00 Test Item Value Reference Range Interpretation Comments POC-GLUCOSE METER 107 mg/dL 70-110 : TESTED A T [facility] 6720 ([employer] [facility]) (test code = [facility] Do[facility], 1538) [address]: Slider Assembler/Techni theo ID = [id number] for Gr antaKrely CT, BRAIN, WITHOUT [id number] 14:07:00Patient with decerebrate posturing, r/o herniationFINAL REPORT [...] is recommended for further characterization. Signed: Shari Perryepmitul Verified Date/Time: 10/09/2019 14:07:57 SPUTUM CULTURE + GRAM [id number] 12:59:00 Test Item Value Reference Range Interpretation Comments CULTURE (BEAKER) See comment (test code = 1095) GRAM STAIN RESULT 1+ White blood cells (BEAKER) (test code = seen 1123) GRAM STAIN RESULT 0-5 epithelial cells (BEAKER) (test code = 206414) GRAM STAIN RESULT No organisms seen (BEAKER) (test code = 237810) 2+ YeastNo Normal respiratory candy presentPOCT-GLUCOSE [id number] 12:22:00 Test Item Value Reference Range Interpretation Comments POC-GLUCOSE METER 168 mg/dL 70-110 H : TESTED A T [facility] 6720 (BEAKER) (test code = [employer] [facility], 1538) [address]: Slider Assembler/Techni theo ID = [id number] for Gr antKarely POCT-GLUCOSE [id number] 10:04:00 Test Item Value Reference Range Interpretation Comments POC-GLUCOSE METER 101 mg/dL 70-110 : TESTED A T [facility] 6720 (BEAKER) (test code = [employer] [facility], 1538) [address]: Slider Assembler/Techni theo ID = [id number] for Gr ant, Tieara BILIRUBIN, [id number] 09:44:00 Test Item Value Reference Range Interpretation Comments BILIRUBIN DIRECT (BEAKER) (test 1.5 mg/dL 0.1-0.5 H code = 706) [id number] 07:19:00 Test Item Value Reference Range Interpretation [...] within 95-100% range.RAD, CHEST, 1 VIEW, NON [id number] 05:16:00Reason for exam:->endotracheal intubationShould this be performed [...] Cummins MDReport Verified Date/Time: 10/09/2019 05:16:08 CALCIUM, [id number] 05:05:00 Test Item Value Reference Range Interpretation Comments CALCIUM IONIZED (BEAKER) (test 1.14 mmol/L 1.12-1.27 code = 698) PH, BLOOD (BEAKER) (test code = 7.49 1810) BLOOD GAS, [id number] 05:04:00 Test Item Value Reference Range Interpretation [...] 40.0 % CBC W/PLT COUNT & AUTO [id number] 04:51:00 Test Item Value Reference Range Interpretation [...] (BEAKER) (test code = 2801) VANCOMYCIN LEVEL, [id number] 04:26:00 Test Item Value Reference Range Interpretation Comments VANCOMYCIN TROUGH (BEAKER) (test 7.0 ug/mL 10.0-20.0 L code = 522) [id number] 04:21:00 Test Item Value Reference Range Interpretation Comments PHOSPHORUS (BEAKER) (test code = 3.2 mg/dL 2.3-4.7 604) [id number] 04:21:00 Test Item Value Reference Range Interpretation Comments MAGNESIUM (BEAKER) (test code = 1.9 mg/dL 1.6-2.6 627) COMPREHENSIVE METABOLIC [id number] 04:21:00 Test Item Value Reference Range Interpretation [...] S NOT APPLICABLE FOR DIALYSIS PATIEN TS. [id number] 04:19:00 Test Item Value Reference Range Interpretation Comments FIBRINOGEN LEVEL (BEAKER) (test 267 mg/dl 225-434 code = 658) [id number] 04:14:00 Test Item Value Reference Range Interpretation [...] 2.5-3.5 for patients wiht mechanical heart valves.PROTHROMBIN TIME/[id number] 04:13:00 Test Item Value Reference Range Interpretation [...] 2.5-3.5 for patients wiht mechanical heart valves.POCT-GLUCOSE [id number] 01:04:00 Test Item Value Reference Range Interpretation Comments POC-GLUCOSE METER 143 mg/dL 70-110 H : TESTED A T [facility] 6720 (BEAKER) (test code = [employer] [facility], 1538) [address]: Slider Assembler/Techni theo ID = [id number] for BONY BRISCOE, SUSIE POCT-GLUCOSE [id number] 20:20:00 Test Item Value Reference Range Interpretation Comments POC-GLUCOSE METER 145 mg/dL 70-110 H : TESTED A T [facility] 6720 (BEAKER) (test code = [facility] [employer] [facility], 1538) [address]: Slider Assembler/Techni theo ID = [id number] for BONY BRISCOE, SUSIE POCT-GLUCOSE [id number] 16:43:00 Test Item Value Reference Range Interpretation Comments POC-GLUCOSE METER 164 mg/dL 70-110 H : TESTED A T [facility] 6720 (BEAKER) (test code = [facility] [employer] [facility], 1538) [address]: Slider Assembler/Techni theo ID = [id number] for Karely Bautista CMV PCR, [id number] 15:47:00 Test Item Value Reference Range Interpretation [...] and its performance characteristics determined by the [facility] Pathol ogy Department, Section of Molecular Pathology. It has not been cleared or approved by the U.S. Foodand Drug Administration (FDA), since FDA approval is not required for clinical use of the test. Validation was done as required by The Clinical Laboratory Improvement Amendments of 1988.[id number] 15:29:00 Test Item Value Reference Range Interpretation Comments PHOSPHORUS (BEAKER) (test code = 3.5 mg/dL 2.3-4.7 604) [id number] 15:29:00 Test Item Value Reference Range Interpretation Comments MAGNESIUM (BEAKER) (test code = 2.1 mg/dL 1.6-2.6 627) [id number] 15:01:00 Test Item Value Reference Range Interpretation Comments PHOSPHORUS (BEAKER) (test code = 2.1 mg/dL 2.3-4.7 L 604) [id number] 15:01:00 Test Item Value Reference Range Interpretation Comments MAGNESIUM (BEAKER) (test code = 2.0 mg/dL 1.6-2.6 627) BASIC METABOLIC [id number] 15:01:00 Test Item Value Reference Range Interpretation [...] APPLICABLE FOR DIALYSIS PATIEN TS. Specimen slightly ictericPT/[id number] 14:53:00 Test Item Value Reference Range Interpretation [...] is 2.5-3.5 for patients wiht mechanical heart valves.[id number] 14:38:00 Test Item Value Reference Range Interpretation Comments AMMONIA (BEAKER) (test code = 348) 34 mol/L 18-72 RUBELLA ANTIBODY, [id number] 14:20:00 Test Item Value Reference Range Interpretation Comments RUBELLA IGG QUANTITATION (BEAKER) 1.0 IU/mL <8.0 (test code = 572) Rubella IgG Result Interpretation: </= 7.0 IU/mL Negative - Presumed non- immune 8.0 - 9.9 IU/mL Equivocal >= 10.0 IU/mL Positive - Presumed immune VARICELLA ZOSTER ANTIBODY, [id number] 13:49:00 Test Item Value Reference Range Interpretation Comments VARICELLA ZOSTER IGG (AL) (BEAKER) 4.8 (test code = 3197) VARICELLA ZOSTER RESULT INTERPRETATIONS: <=0.8 Al Nonreactive: Presumed non- immune to VZV 0.9-1.0Al Equivocal >=1.1 Al Reactive: Presumed immune to VZV CRYPTOCOCCAL [id number] 13:33:00 Test Item Value Reference Range Interpretation Comments CRYPTOCOCCAL ANTIGEN, SERUM Negative Negative, Interference (BEAKER) (test code = 1828) FACTOR 5 ACTIVITY (BLEEDING RISK)2019-10-08 13:03:00 Test Item Value Reference Range Interpretation Comments FACTOR V ACTIVITY (BEAKER) (test code = 9.0 % 60.0-150.0 L 665) CBC W/PLT COUNT & AUTO [id number] 12:13:00 Test Item Value Reference Range Interpretation [...] PERCENT (BEAKER) (test code = 2801) POCT-GLUCOSE [id number] 11:22:00 Test Item Value Reference Range Interpretation Comments POC-GLUCOSE METER 184 mg/dL 70-110 H : TESTED A T [facility] 6720 (BEAKER) (test code = [facility] [employer] [facility], 1538) [address]: Slider Assembler/Techni theo ID = [id number] for Karely Batuista ANTI-NUCLEAR ANTIBODY (JOSE ARMANDO)2019-10-08 10:44:00 Test Item Value Reference Range Interpretation Comments ANTI-NUCLEAR ANTIBODY (JOSE ARMANDO) (BEAKER) Negative Negative (test code = 418) Test performed by IFA method.Test performed by IFA method.[id number] 09:26:00 Test Item Value Reference Range Interpretation Comments PHOSPHORUS (BEAKER) (test code = 2.9 mg/dL 2.3-4.7 604) [id number] 09:26:00 Test Item Value Reference Range Interpretation Comments MAGNESIUM (BEAKER) (test code = 2.0 mg/dL 1.6-2.6 627) BASIC METABOLIC [id number] 09:26:00 Test Item Value Reference Range Interpretation [...] Specimen slightly ictericRAD, CHEST, 1 VIEW, NON [id number] 09:14:00Reason for exam:->endotracheal intubationShould this be performed [...] MDReport Verified Date/Time: 10/08/2019 09:14:39 Reading Location: [facility] Radiology Reading Room -[id number] 06:25:00 Test Item Value Reference Range Interpretation [...] of thrombosis is within 95-100% range. PROTHROMBIN TIME/[id number] 05:32:00 Test Item Value Reference Range Interpretation [...] is 2.5-3.5 for patients wiht mechanical heart valves.[id number] 05:32:00 Test Item Value Reference Range Interpretation Comments FIBRINOGEN LEVEL (BEAKER) (test 200 mg/dl 225-434 L code = 658) [id number] 05:32:00 Test Item Value Reference Range Interpretation [...] Specimen slightly ictericCBC W/PLT COUNT & AUTO [id number] 05:24:00 Test Item Value Reference Range Interpretation [...] (BEAKER) (test code = 2801) LACTIC ACID, [id number] 05:16:00 Test Item Value Reference Range Interpretation Comments LACTATE BLOOD VENOUS (2) (BEAKER) 1.8 mmol/L 0.5-2.2 (test code = 2872) [id number] 23:51:00 Test Item Value Reference Range Interpretation Comments PHOSPHORUS (BEAKER) (test code = 4.4 mg/dL 2.3-4.7 604) [id number] 23:51:00 Test Item Value Reference Range Interpretation Comments MAGNESIUM (BEAKER) (test code = 2.2 mg/dL 1.6-2.6 627) BASIC METABOLIC [id number] 23:51:00 Test Item Value Reference Range Interpretation [...] DIALYSIS PATIEN TS. Specimen slightly ictericBLOOD GAS, [id number] 23:37:00 Test Item Value Reference Range Interpretation [...] 50.0 % CBC W/PLT COUNT & AUTO [id number] 20:12:00 Test Item Value Reference Range Interpretation [...] PERCENT (BEAKER) (test code = 2801) POCT-GLUCOSE [id number] 20:01:00 Test Item Value Reference Range Interpretation Comments POC-GLUCOSE METER 143 mg/dL 70-110 H : TESTED A T [facility] 6720 (BEAKER) (test code = [place], 1538) [address]: Slider Assembler/Techni theo ID = [id number] for Liban Arnett BLOOD GAS, [id number] 19:54:00 Test Item Value Reference Range Interpretation [...] (test code = 1819) 24.0 % POCT-GLUCOSE [id number] 19:01:00 Test Item Value Reference Range Interpretation Comments POC-GLUCOSE METER 155 mg/dL 70-110 H : TESTED A T [employer] 6720 (BEAKER) (test code = [employer] [facility], 1538) [address]: Slider Assembler/Techni theo ID = [id number] for GIDEON NUNEZ HEPATOBILIARY [id number] 18:38:00Please do at bedside. Thank you.FINAL REPORT PROCEDURE: HEPATOBILIARY SCAN CPT CODE: 98745 INDICATION: abdominal pain PROTOCOL: 5.3 mCi of [...] Jeffery Alarcon Verified Date/Time: 10/07/2019 18:38:40 POCT-GLUCOSE [id number] 16:52:00 Test Item Value Reference Range Interpretation Comments POC-GLUCOSE METER 166 mg/dL 70-110 H : TESTED A T [facility] 6720 (BEAKER) (test code = [facility], 1538) [address]: Slider Assembler/Techni theo ID = [id number] for GIDEON NUNEZ PT/[id number] 16:40:00 Test Item Value Reference Range Interpretation [...] is 2.5-3.5 for patients wiht mechanical heart valves.[id number] 16:40:00 Test Item Value Reference Range Interpretation Comments FIBRINOGEN LEVEL (BEAKER) (test 156 mg/dl 225-434 L code = 658) PROTHROMBIN TIME/[id number] 16:39:00 Test Item Value Reference Range Interpretation [...] is 2.5-3.5 for patients wiht mechanical heart valves.[id number] 16:36:00 Test Item Value Reference Range Interpretation Comments PHOSPHORUS (BEAKER) (test code = 1.8 mg/dL 2.3-4.7 L 604) [id number] 16:36:00 Test Item Value Reference Range Interpretation Comments MAGNESIUM (BEAKER) (test code = 2.5 mg/dL 1.6-2.6 627) BASIC METABOLIC [id number] 16:36:00 Test Item Value Reference Range Interpretation [...] APPLICABLE FOR DIALYSIS PATIEN TS. BLOOD GAS, [id number] 16:22:00 Test Item Value Reference Range Interpretation [...] 25.0 % CBC W/PLT COUNT & AUTO [id number] 12:44:00 Test Item Value Reference Range Interpretation [...] PERCENT (BEAKER) (test code = 2801) POCT-GLUCOSE [id number] 12:23:00 Test Item Value Reference Range Interpretation Comments POC-GLUCOSE METER 145 mg/dL 70-110 H : TESTED A T [facility] 6720 (BEAKER) (test code = [place], 1538) [address]: Slider Assembler/Techni theo ID = [id number] for GIDEON NUNEZ [id number] 12:06:00 Test Item Value Reference Range Interpretation Comments T4 TOTAL (BEAKER) (test code = 895) 4.6 ug/dL 4.9-11.7 L BASIC METABOLIC [id number] 10:00:00 Test Item Value Reference Range Interpretation [...] S NOT APPLICABLE FOR DIALYSIS PATIEN TS. [id number] 10:00:00 Test Item Value Reference Range Interpretation Comments PHOSPHORUS (BEAKER) (test code = 2.8 mg/dL 2.3-4.7 604) [id number] 10:00:00 Test Item Value Reference Range Interpretation Comments MAGNESIUM (BEAKER) (test code = 2.0 mg/dL 1.6-2.6 627) POCT-GLUCOSE [id number] 08:15:00 Test Item Value Reference Range Interpretation Comments POC-GLUCOSE METER 174 mg/dL 70-110 H : TESTED A T [facility] 6720 (BEAKER) (test code = [place], 1538) [address]: Slider Assembler/Techni theo ID = [id number] for SA JOHN, GIDEON RAD, CHEST, 1 VIEW, NON [id number] 05:39:00Reason for exam:- >intubatedShould this be performed [...] Verified Date/Time: 10/07/2019 05:39:22 05:39 AMBLOOD GAS, [id number] 05:29:00 Test Item Value Reference Range Interpretation [...] (BEAKER) (test code = 1819) 40.0 % [id number] 05:07:00 Test Item Value Reference Range Interpretation [...] thrombosis is within 95-100% range. COMPREHENSIVE METABOLIC [id number] 04:59:00 Test Item Value Reference Range Interpretation [...] PATIEN TS. CBC W/PLT COUNT & AUTO [id number] 04:32:00 Test Item Value Reference Range Interpretation [...] H PERCENT (BEAKER) (test code = 2801) [id number] 04:30:00 Test Item Value Reference Range Interpretation Comments PHOSPHORUS (BEAKER) (test code = 3.1 mg/dL 2.3-4.7 604) [id number] 04:30:00 Test Item Value Reference Range Interpretation Comments MAGNESIUM (BEAKER) (test code = 1.8 mg/dL 1.6-2.6 627) POCT-GLUCOSE [id number] 04:25:00 Test Item Value Reference Range Interpretation Comments POC-GLUCOSE METER 126 mg/dL 70-110 H : TESTED A T [facility] 6720 (BEAKER) (test code = [employer] [place], 1538) [address]: Slider Assembler/Techni theo ID = [id number] for Liban Arnett [id number] 04:18:00 Test Item Value Reference Range Interpretation Comments FIBRINOGEN LEVEL (BEAKER) (test 173 mg/dl 225-434 L code = 658) [id number] 04:14:00 Test Item Value Reference Range Interpretation [...] for patients wiht mechanical heart valves.LACTIC ACID, [id number] 04:13:00 Test Item Value Reference Range Interpretation Comments LACTATE BLOOD VENOUS (2) (BEAKER) 1.2 mmol/L 0.5-2.2 (test code = 2872) POCT-GLUCOSE [id number] 01:33:00 Test Item Value Reference Range Interpretation Comments POC-GLUCOSE METER 103 mg/dL 70-110 : TESTED A T [facility] 6720 (BEAKER) (test code = [facility], 1538) [address]: Slider Assembler/Techni theo ID = [id number] for DOMINGO PINGGEORGIA LAZ HEMOGLOBIN AND [id number] 00:27:00 Test Item Value Reference Range Interpretation Comments HEMOGLOBIN (BEAKER) (test code = 8.6 GM/DL 11.2-15.7 L 410) HEMATOCRIT (BEAKER) (test code = 26.2 % 34.1-44.9 L 411) POCT-GLUCOSE [id number] 22:58:00 Test Item Value Reference Range Interpretation Comments POC-GLUCOSE METER 146 mg/dL 70-110 H : TESTED A T [facility] 6720 (BEAKER) (test code = [place], 1538) [address]: Slider Assembler/Techni theo ID = [id number] for GISELE CUETO RAD, CHEST, 1 VIEW, NON [id number] 21:37:00Reason for exam:->line placement, right IJShould this [...] changes the left clavicle. Signed: Carolynn Rodríguez [facility] Verified Date/Time: 10/06/2019 21:37:58 BASI METABOLIC [id number] 20:04:00 Test Item Value Reference Range Interpretation [...] APPLICABLE FOR DIALYSIS PATIEN TS. PROTEIN, RANDOM [id number] 19:50:00 Test Item Value Reference Range Interpretation Comments PROTEIN, URINE (BEAKER) (test code = 83 mg/dL 0-14 H 1569) CREATININE, RANDOM [id number] 19:28:00 Test Item Value Reference Range Interpretation Comments CREATININE URINE (BEAKER) (test 37.6 mg/dL code = 375) Reference Range: No [id number] 19:00:00 Test Item Value Reference Range Interpretation Comments MAGNESIUM (BEAKER) 2.0 mg/dL 1.6-2.6 Specimen slightly (test code = 627) hemolyzed [id number] 19:00:00 Test Item Value Reference Range Interpretation [...] 0-0 (test code = 413) LACTIC ACID, [id number] 18:55:00 Test Item Value Reference Range Interpretation Comments LACTATE BLOOD VENOUS 1.9 mmol/L 0.5-2.2 Specime n slightly (2) (BEAKER) (test hemolyzed code = 8952) VITAMIN B12 AND [id number] 18:36:00 Test Item Value Reference Range Interpretation Comments VITAMIN B12 (BEAKER) (test code = > pg/mL 213-816 H 774) FOLATE (BEAKER) (test code = 362) 17.3 ng/mL >=7.0 BLOOD GAS, [id number] 18:29:00 Test Item Value Reference Range Interpretation [...] code = 1819) 40.0 % BASIC METABOLIC [id number] 17:47:00 Test Item Value Reference Range Interpretation [...] NOT APPLICABLE FOR DIALYSIS PATIEN TS. POCT-GLUCOSE [id number] 17:39:00 Test Item Value Reference Range Interpretation Comments POC-GLUCOSE METER 188 mg/dL 70-110 H : TESTED A T [facility] 6720 (BEAKER) (test [facility] = [facility], 1538) [address]: Slider Assembler/Techni theo ID = [id number] for GIDEON NUNEZ LIPID [id number] 17:28:00 Test Item Value Reference Range Interpretation [...] = 7.3 mg/dL 2.6-7.2 H 773) HEMOGLOBIN [id number] 16:13:00 Test Item Value Reference Range Interpretation Comments HEMOGLOBIN A1C (BEAKER) (test code = 6.0 % 4.3-6.1 368) HEPATITIS A ANTIBODY, [id number] 16:13:00 Test Item Value Reference Range Interpretation Comments HEPATITIS A IGG ANTIBODY (BEAKER) Reactive Nonreactive A (test code = 2797) CARCINOEMBRYONIC ANTIGEN (CEA)2019-10-06 16:08:00 Test Item Value Reference Range Interpretation Comments CARCINOEMBRYONIC ANTIGEN (BEAKER) 23.1 ng/mL 0.0-5.0 H (test code = 685) VITAMIN D, [id number] 16:08:00 Test Item Value Reference Range Interpretation Comments VITAMIN D 25-OH (BEAKER) (test 10.1 ng/mL 6.6-49.9 code = 2764) Effective 09/07/2017: Reference Range ChangeNew: 6.6-49.9 ng/mL Previous: 13.0- 47.8 ng/mLRecommendedVitamin D Target Range: 30.0-40.0 ng/mLTRANSFERRIN 2019-10-06 15:52:00 Test Item Value Reference Range Interpretation Comments TRANSFERRIN (BEAKER) (test code = 218 mg/dL 174-382 541) [id number] 15:09:00 Test Item Value Reference Range Interpretation Comments PHOSPHORUS (BEAKER) (test code = 1.7 mg/dL 2.3-4.7 L 604) U/S, ABDOMINAL, WITH [id number] 15:01:00Reason for exam:->acute liver injury, ? cholecystitis, [...] MDReport Verified Date/Time: 10/06/2019 15:01:21 Reading Location: [address] Reading Room PREGNANCY SCREEN, [id number] 14:58:00 Test Item Value Reference Range Interpretation Comments TEST URINE (BEAKER) (test Negative code = 583) POCT-GLUCOSE [id number] 12:44:00 Test Item Value Reference Range Interpretation Comments POC-GLUCOSE METER 156 mg/dL 70-110 H : TESTED A T [facility] 6720 (BEAKER) (test code = [place], 1538) [address]: Slider Assembler/Techni theo ID = [id number] for SA NDETEREZA, GIDEON [id number] 12:39:00 Test Item Value Reference Range Interpretation Comments RPR SCREEN (BEAKER) (test code = Nonreactive Nonreactive 420) B-TYPE NATRIURETIC FACTOR (BNP)2019-10-06 11:57:00 Test Item Value Reference Range Interpretation Comments B-TYPE NATRIURETIC PEPTIDE 3996 pg/mL 0-100 H (BEAKER) (test code = 700) [id number] 11:51:00 Test Item Value Reference Range Interpretation Comments MAGNESIUM (BEAKER) (test code = 2.2 mg/dL 1.6-2.6 627) BLOOD GAS, [id number] 11:50:00 Test Item Value Reference Range Interpretation [...] code = 1819) 50.0 % RESPIRATORY PANEL [id number] 11:35:00 Test Item Value Reference Range Interpretation [...] decisions. This sample was tested at the [facility] Molecular Diagnostics Laboratory using the CIHIArray Respiratory Panel. It is FDA cleared and has been verified and approved by the [facility] for clinical use on nasopharyngeal swab specimens.The performance of the FilmArrayRP has not been established in individuals who received influenza vaccine. Recent administration of a nasal influenza vaccine may cause false positive results for Influenza A and/orInfluenza B.RETICULOCYTE [id number] 11:32:00 Test Item Value Reference Range Interpretation Comments RETICULOCYTE COUNT PCT (BEAKER) (test 2.1 % 0.5-1.7 H code = 575) KETONE, [id number] 11:30:00 Test Item Value Reference Range Interpretation Comments KETONES, BLOOD (BEAKER) (test code 0.3 mmol/L <0.4 = 1103) LEGIONELLA ANTIGEN, [id number] 09:37:00 Test Item Value Reference Range Interpretation Comments L. PNEUMOPHILA Negative - see Negative fo r L. SEROGP 1 UR AG comment pneumophila (JASON) (test code serogrou p 1 antigen, = 1156) suggesting no r ecent or current infe ction with this serog roup. Legionellosis c annot be ruled out si nce other serogroup s and species may cau se disease. STREP PNEUMONIAE [id number] 09:37:00 Test Item Value Reference Range Interpretation [...] the detection limit of the test. POCT-GLUCOSE [id number] 08:45:00 Test Item Value Reference Range Interpretation Comments POC-GLUCOSE METER 119 mg/dL 70-110 H : TESTED A T [facility] 6720 (JASON) (test code = [facility], 1538) [address]: Slider Assembler/Techni theo ID = [id number] for SA NDERS, GIDEON RAD, CHEST, 1 VIEW, NON [id number] 08:37:00Post-intubationReason for exam:- >intubationShould this be performed [...] MDReport Verified Date/Time: 10/06/2019 08:37:13 Reading Location: [facility] Reading Room Electronically signed by: AMANDA VAN M.D.on 10/06/2019 08:37 [id number] 07:44:00 Test Item Value Reference Range Interpretation Comments PROCALCITONIN (BEAKER) (test code 0.97 ng/mL <0.05 H = 3036) SEPSIS RISK (ng/mL)Low: 0.05-0.50Intermediate: 0.51-2.00High: >=2.01 URINALYSIS W/ REFLEX URINE [id number] 07:15:00 Test Item Value Reference Range Interpretation [...] code = 2795) ALPHA FETOPROTEIN (AFP), TUMOR [id number] 06:49:00 Test Item Value Reference Range Interpretation Comments ALPHA-FETOPROTEIN (BEAKER) (test code < ng/mL <10.0 = 1094) For 1 occurencesHEPATITIS B SURFACE [id number] 06:49:00 Test Item Value Reference Range Interpretation Comments HEPATITIS B SURFACE ANTIBODY < mIU/mL <8.0 (BEAKER) (test code = 647) For 1 occurencesRAPID DRUG SCREEN, [id number] 06:33:00 Test Item Value Reference Range Interpretation [...] situations. Chain of custody not maintained. Some hhvg-num-wqpritn medications, as well as adulterants, may cause inaccurate results. Clinical correlation should be applied. A more comprehensive drug screen or confirmation of a detected drug may be performed upon request.CREATININE, RANDOM [id number] 06:30:00 Test Item Value Reference Range Interpretation Comments CREATININE URINE (BEAKER) (test 38.0 mg/dL code = 375) Reference Range: No NormalsSODIUM, RANDOM [id number] 06:30:00 Test Item Value Reference Range Interpretation Comments SODIUM URINE (BEAKER) (test code = 51 meq/L 243) Reference Range: No NormalsHEPATITIS B CORE ANTIBODY, [id number] 06:27:00 Test Item Value Reference Range Interpretation Comments HEPATITIS B CORE TOTAL ANTIBODY Nonreactive Nonreactive (BEAKER) (test code = 497) For 1 [id number] 05:50:00 Test Item Value Reference Range Interpretation Comments FERRITIN (BEAKER) (test code = 1588 ng/mL 5-275 H 361) For 1 occurencesACETAMINOPHEN [id number] 05:30:00 Test Item Value Reference Range Interpretation Comments ACETAMINOPHEN LEVEL (BEAKER) (test < ug/mL 10.0-30.0 L code = 344) Therapeutic Range: 10.0-30.0 g/mLToxic Levels: >200.0 g/mLFor 1 occurences [id number] 05:20:00 Test Item Value Reference Range Interpretation Comments ALPHA-1 ANTITRYPSIN (BEAKER) 266.90 mg/dL 90.00-200.00 H (test code = 502) [id number] 05:17:00 Test Item Value Reference Range Interpretation Comments THYROID STIMULATING HORMONE 0.75 uIU/mL 0.35-4.94 (BEAKER) (test code = 772) HEPATITIS PANEL, [id number] 05:17:00 Test Item Value Reference Range Interpretation Comments HEPATITIS A IGM ANTIBODY (BEAKER) Nonreactive Nonreactive (test code = 498) HEPATITIS B CORE IGM ANTIBODY Nonreactive Nonreactive (BEAKER) (test code = 645) HEPATITIS C ANTIBODY (BEAKER) Nonreactive Nonreactive (test code = 367) HEPATITIS B SURFACE ANTIGEN (2) Nonreactive Nonreactive (BEAKER) (test code = 2585) HIV-1 ANTIGEN WITH HIV-1/2 [id number] 05:17:00 Test Item Value Reference Range Interpretation Comments HIV-1 ANTIGEN WITH HIV 1\T\2 Nonreactive Nonreactive ANTIBODY (2) (BEAKER) (test code = 2586) BASIC METABOLIC [id number] 05:09:00 Test Item Value Reference Range Interpretation [...] APPLICABLE FOR DIALYSIS PATIEN TS. HEPATIC FUNCTION [id number] 05:09:00 Test Item Value Reference Range Interpretation [...] code = > U/L 6-55 H 347) [id number] 05:07:00 Test Item Value Reference Range Interpretation Comments PHOSPHORUS (BEAKER) (test code = 3.6 mg/dL 2.3-4.7 604) [id number] 05:07:00 Test Item Value Reference Range Interpretation [...] H (test code = 364) LACTIC ACID, [id number] 04:58:00 Test Item Value Reference Range Interpretation Comments LACTATE BLOOD ARTERIAL (2) 1.5 mmol/L 0.5-2.2 (BEAKER) (test code = 2874) [id number] 04:56:00 Test Item Value Reference Range Interpretation Comments ETHANOL (BEAKER) (test code = 400) < mg/dL <=10 [id number] 04:54:00 Test Item Value Reference Range Interpretation [...] L (test code = 2590) BLOOD GAS, [id number] 04:53:00 Test Item Value Reference Range Interpretation [...] 30.0 % CBC W/PLT COUNT & AUTO [id number] 04:53:00 Test Item Value Reference Range Interpretation [...] PERCENT (BEAKER) (test code = 2801) CALCIUM, [id number] 04:51:00 Test Item Value Reference Range Interpretation Comments CALCIUM IONIZED (BEAKER) (test 1.12 mmol/L 1.12-1.27 code = 698) PH, BLOOD (BEAKER) (test code = 7.35 1810) PROTHROMBIN [id number] 04:43:00 Test Item Value Reference Range Interpretation [...] is 2.5-3.5 for patients wiht mechanical heart valves.[id number] 04:43:00 Test Item Value Reference Range Interpretation Comments FIBRINOGEN LEVEL (BEAKER) (test 265 mg/dl 225-434 code = 658) [id number] 04:43:00 Test Item Value Reference Range Interpretation [...] for patients wiht mechanical heart valves.ACUTE HEPATITIS [id number] 06:15:00 Test Item Value Reference Range Interpretation [...] HCV Nucl eic Acid Amplification t est (651119).Perfor med At: HD [facility] [id number] [facility] [place], [place] [id number] kris Gould MD Ph:[phone] HIV 1 2 ANTIBODY [id number] 06:15:00 Test Item Value Reference Range Interpretation Comments AB HIV 1 2 (test code = NON REACTIVE SCREEN NONREACTIVE [id number]) AG HIV1 P24 (test code = NON REACTIVE P24 NONREACTIVE MVT5X48) - CT ABD PELVIS [id number] 12:57:00 Name: GINA MARIE [place] : 1965 Age/S: 53 / F [address] [place] Unit #: [id number] Loc: [place] [address] Phys: Bryan Orta MD Acct: [id number] Dis Date: Status: ADM IN PHONE #: [phone] Exam Date: 03/09/2019 1200 FAX #: Reason: abd pain EXAMS: CPT: [id number] CT ABD PELVIS W/CONT 51519 LOCATION: T18 EXAM: CT ABDOMEN AND PELVIS WITH CONTRAST INDICATION: abd pain, COMPARISON: None. TECHNIQUE: Multiple CT images of the abdomen and pelvis were obtained with reconstructions in the coronal sagittal planes. 100 ml of Isovue 300 was given intravenously. Up-to-date CT equipment and radiation dose reduction techniques were utilized. Automatic exposure control was utilized.FINDINGS: Lung bases are clear. Liver and spleen [...] CTDI: DLP: PAGE 1 Signed ReportBASIC METABOLIC [id number] 07:37:00 Test Item Value Reference Range Interpretation [...] = CA) 8.7 MG/DL 8.5-10.1 N T4 [id number] 07:37:00 Test Item Value Reference Range Interpretation Comments T4 FREE (test code = T4F) 0.70 NG/DL 0.89-1.76 L THYROID STIMULATING [id number] 07:37:00 Test Item Value Reference Range Interpretation Comments THYROID STIMULATING HORMONE 1.540 mcIU/ML 0.340-4.820 N (test code = TSH) ACUTE HEPATITIS [id number] 07:33:00 Test Item Value Reference Range Interpretation Comments AB HEPATITIS A IGM (test code = HAVMAB) AG HEPATITIS B SURFACE (test code = SCREEN NEGATIVE HBSAG) AB HEPATITIS B CORE IGM (test code = HBCMAB) AB HEPATITIS C (test code = HCVAB) RATIO <0.8 HIV 1 2 ANTIBODY [id number] 07:33:00 Test Item Value Reference Range Interpretation Comments AB HIV 1 2 (test code = NON REACTIVE SCREEN NONREACTIVE RIL32CG) AG HIV1 P24 (test code = NON REACTIVE P24 NONREACTIVE COW2H16) GLYCOSYLATED HEMOGLOBIN [id number] 07:26:00 Test Item Value Reference Range Interpretation Comments GLYCOSYLATED HEMOGLOBIN (HA1C) 5.8 % A1C 4.2-6.3 N (test code = GLYHGB) ESTIMATED AVERAGE GLUCOSE (test 120 MG/DLest code = EAG) CBC W/AUTO [id number] 07:21:00 Test Item Value Reference Range Interpretation [...] DIFF/SCN CRITERIA MDIFF) - CT HEAD/BRAIN W/O [id number] 19:39:00 Name: GINA MARIE : 1965 Age/S: 53 / F [address] Unit #: [id number] Loc: [place] [address] Phys: Maria Morel MD Acct: [id number] Dis Date: Status: ADM IN PHONE #: [phone] Exam Date: 03/08/2019 8820 FAX #: Reason: near syncope EXAMS: CPT: [id number] HEAD/BRAIN W/O CONT [address]4442 CT head History: near syncope Comparison: None [...] (1938) EsthelaPMT Orig Print D/T: S: 03/08/2019 (1942) CTDI: DLP: PAGE 1 Signed ReportDRUGS OF ABUSE SCREEN [id number] 19:12:00 Test Item Value Reference Range Interpretation [...] NEGATIVE SCcutoff <300 NG/ML [place]) COMPREHENSIVE METABOLIC [id number] 17:26:00 Test Item Value Reference Range Interpretation [...] 45-117 N TOTAL (test code = ALKP) [id number] 17:26:00 Test Item Value Reference Range Interpretation Comments MAGNESIUM (test code = MAG) 1.9 MG/DL 1.8-2.4 N [id number] 17:26:00 Test Item Value Reference Range Interpretation Comments ALCOHOL (test code = ALC) < 3 MG/DL 0-10 N COMPREHENSIVE METABOLIC [id number] 17:21:00 Test Item Value Reference Range Interpretation [...] TOTAL (test Unit/L 45-117 code = ALKP) [id number] 17:21:00 Test Item Value Reference Range Interpretation Comments MAGNESIUM (test code = MAG) MG/DL 1.8-2.4 [id number] 17:21:00 Test Item Value Reference Range Interpretation Comments ALCOHOL (test code = ALC) MG/DL 0-10 CBC W/AUTO [id number] 17:08:00 Test Item Value Reference Range Interpretation [...] DIFF/SCN CRITERIA MDIFF) - XR CHEST 1 [id number] 16:33:00 Name: [place] : 1965 Age/S: 53 / F [address] [place] Unit #: [id number] Loc: [place] [address] Phys: Maria Morel MD Acct: [id number] Dis Date: Status: PRE E R PHONE #: [phone] Exam Date: 03/08/2019 1628 FAX #: Reason: near syncope EXAMS: CPT: [id number] CHEST 1 V 70148 Fluoro Time: DAP (Gy m2): Air Kerma (mGy): LOCATION: T18 EXAM: CHEST 1 VIEW INDICATION: near syncope COMPARISON: Chest x-ray July 02, 2014 TECHNIQUE: AP chest radiograph. FINDINGS:Lungs are clear bilaterally without effusion. Heart and [...] MARIE : 1965 Age/S: 53 / F [address] [facility] Unit #: [id number] Loc: [place] [address] Phys: Maria Morel MD Acct: [id number] Dis Date: Status: PRE ER PHONE #: [phone] Exam Date: 03/08/2019 0619 FAX #: Reason: near syncope EXAMS: CPT: [id number] XR CHEST 1 V 24374 Fluoro Time: DAP (Gy m2): Air Kerma (mGy): (Continued) Technologist: Nanette Gordon, RT(R)(CT) Trnscb Date/Time: 03/08/2019 (1633) [email or web address] Orig Print D/T: S: 03/08/2019 (1636) PAGE 2 Signed Report
--- NOTE | 2022-10-24 17:26 | EDPHYS ---
Physician Documentation [facility] Name: Pratibha Jennings Age: 57 yrs Sex: Female : 1965 Arrival Date: 10/24/2022 Time: 16:11 Bed 9 Private MD: ED Physician Melvin Jay HPI: 10/24 17:24 This 57 yrs old Female presents to ER via Ambulatory with complaints of Suture Removal. jmm 17:24 The patient has sutures on the face. Sutures/christen progress: The patient has no jmm c/o's. The wound is well-healing with no redness, swelling, discharge, or dehiscence reported. It is unknown whether or not the patient has had similar symptoms in the past. Historical: - Allergies: 16:21 Iodine; topical; kb3 16:21 Latex, Natural Rubber; kb3 - PMHx: 16:21 ADD/ADHD; Back pain; Chronic pain; Degenerative disc disease; hepatic encephalopathy; kb3 Hyperlipidemia; Hypertension; - PSHx: 16:21 Disc removal; Left clavicle; Left knee replacement; Left wrist surgery; Right knee kb3 replacement; Spinal surgery; - Immunization history:: Adult Immunizations up to date, Client reports receiving the 2nd dose of the Covid vaccine, Last tetanus immunization: up to date. - Social history:: Smoking status: Patient denies any tobacco usage or history of. ROS: 17:24 Constitutional: Negative for fever, chills, and weight loss, Cardiovascular: Negative jmm for chest pain, palpitations, and edema, Respiratory: Negative for shortness of breath, cough, wheezing, and pleuritic chest pain. 17:24 Skin: Positive for laceration(s). 17:24 All other systems are negative. Exam: 17:24 Constitutional: This is a well developed, well nourished patient who is awake, alert, jmm and in no acute distress. 17:24 ENT: Moist Mucus Membranes Neck: Trachea midline, Supple Chest/axilla: Normal chest wall appearance and motion. Cardiovascular: Regular rate and rhythm. No edema appreciated Respiratory: Normal respirations, no respiratory distress appreciated Abdomen/GI: Non distended Back: Normal ROM Skin: General appearance color normal MS/ Extremity: Moves all extremities, no obvious deformities appreciated, no edema noted to the lower extremities Neuro: Awake and alert Psych: Behavior is normal, Mood is normal, Patient is cooperative and pleasant 17:24 Head/face: healing laceration noted to the chin. Vital Signs: 16:19 BP 134 / 101; Pulse 87; Resp 20; Temp 99.0; Pulse Ox 95% ; Weight 46.27 kg; Height 5 kb3 ft. 4 in. (162.56 cm); Pain 0/10; 16:19 Body Mass Index 17.51 (46.27 kg, 162.56 cm) kb3 Procedures: 17:25 Suture/Staple removal: Removed 8 sutures, from face, site appears well healed, Patient jmm tolerated well. MDM: 16:55 Patient medically screened. jmm 17:25 Data reviewed: vital signs, nurses notes. Counseling: I had a detailed discussion with melonie the patient and/or guardian regarding: the historical points, exam findings, and any diagnostic results supporting the discharge/admit diagnosis, the need for outpatient follow up, to return to the emergency department if symptoms worsen or persist or if there are any questions or concerns that arise at home. Administered Medications: No medications were administered Disposition: 19:17 Co-signature as Attending Physician, Melvin Jay DO I was immediately available on-site ms3 in the Emergency Department for consultation in the care of the patient. Disposition Summary: 10/24/22 17:26 Discharge Ordered Location: Home [facility] Condition: Stable [facility] Diagnosis - Encounter for removal of sutures [facility] Followup: [facility] - With: Private Physician - When: As needed - Reason: Recheck today's complaints, Continuance of care, Re-evaluation by your physician Discharge Instructions: - Discharge Summary Sheet [facility] - Suture Removal, Care After [facility] Forms: - Medication Reconciliation Form [facility] - Thank You Letter [facility] - Antibiotic Education [facility] - Prescription Opioid Use [facility] Signatures: Humphrey Simmons PA PA jmm Sims, Marcus, DO DO ms3 Flavia Bergeron, RN RN kb3
--- NOTE | 2022-10-24 17:26 | ER ---
Nurse's Notes [facility] Name: Pratibha Jennings Age: 57 yrs Sex: Female : 1965 Arrival Date: 10/24/2022 Time: 16:11 Bed 9 Private MD: Diagnosis: Encounter for removal of sutures Presentation: 10/24 16:19 Chief complaint: Patient states: Pt presents requesting to have sutures removed from kb3 face. Sutures were placed in this ER 3-4 weeks ago. Coronavirus screen: Vaccine status: Patient reports receiving the 2nd dose of the covid vaccine. Client denies travel out of the [place] in the last 14 days. Ebola Screen: Patient negative for fever greater than or equal to 101.5 degrees Fahrenheit, and additional compatible Ebola Virus Disease symptoms Patient denies exposure to infectious person. Patient denies travel to an Ebola-affected area in the 21 days before illness onset. Initial Sepsis Screen: Does the patient meet any 2 criteria? No. Patient's initial sepsis screen is negative. Does the patient have a suspected source of infection? No. Patient's initial sepsis screen is negative. Risk Assessment: Do you want to hurt yourself or someone else? Patient reports no desire to harm self or others. Onset of symptoms was October 02, 2022. 16:19 Method Of Arrival: Ambulatory kb3 16:19 Acuity: NUSRAT 4 kb3 Triage Assessment: 16:21 General: Appears in no apparent distress. Behavior is calm, cooperative. Pain: Denies kb3 pain. Historical: - Allergies: 16:21 Iodine; topical; kb3 16:21 Latex, Natural Rubber; kb3 - PMHx: 16:21 ADD/ADHD; Back pain; Chronic pain; Degenerative disc disease; hepatic encephalopathy; kb3 Hyperlipidemia; Hypertension; - PSHx: 16:21 Disc removal; Left clavicle; Left knee replacement; Left wrist surgery; Right knee kb3 replacement; Spinal surgery; - Immunization history:: Adult Immunizations up to date, Client reports receiving the 2nd dose of the Covid vaccine, Last tetanus immunization: up to date. - Social history:: Smoking status: Patient denies any tobacco usage or history of. Screenin:50 Abuse screen: Denies threats or abuse. Denies injuries from another. Nutritional kb3 screening: No deficits noted. Tuberculosis screening: No symptoms or risk factors identified. Fall Risk None identified. Assessment: 16:50 Reassessment: Patient appears in no apparent distress at this time. No changes from kb3 previously documented assessment. General: See triage note. 17:25 General: Per Humphrey DOWLING, 8 sutures removed. Pt left ambulatory with son prior to signing kb3 discharge paperwork. Wound care instructions provided by Humphrey DOWLING. . Vital Signs: 16:19 BP 134 / 101; Pulse 87; Resp 20; Temp 99.0; Pulse Ox 95% ; Weight 46.27 kg; Height 5 kb3 ft. 4 in. (162.56 cm); Pain 0/10; 16:19 Body Mass Index 17.51 (46.27 kg, 162.56 cm) kb3 ED Course: 16:11 Patient arrived in ED. jl7 16:12 Humphrey Simmons PA is PHCP. [facility] 16:12 Melvin Jay DO is Attending Physician. [facility] 16:21 Triage completed. kb3 16:21 Arm band placed on right wrist. kb3 16:50 Patient has correct armband on for positive identification. Bed in low position. Call kb3 light in reach. Adult w/ patient. 16:50 Suture removal kit to bedside. Patient did not have IV access during this emergency kb3 room visit. 17:23 Flavia Bergeron, RN is Primary Nurse. kb3 Administered Medications: No medications were administered Medication: 16:50 VIS not applicable for this client. kb3 Outcome: 17:26 Discharge ordered by . [facility] 17:28 Discharged to home ambulatory, with family. kb3 17:28 Condition: stable 17:28 Discharge instructions given to patient, family, Instructed on discharge instructions, follow up and referral plans. Demonstrated understanding of instructions, follow-up care. 17:29 Patient left the ED. kb3 Signatures: Humphrey Simmons PA PA jmm Leal, Jahala, RN RN jl7 Flavia Bergeron, RN RN kb3
[2022-10-24 17:33] VITALS: BP 134/101; TEMP 99; O2SAT 95
== END 2022-10-24 17:29 | disposition home or self-care (01) ==
LOC: ER 16:08
DX: Z48.02 Encounter for removal of sutures (principal)
CPT/HCPCS: 99281

== ENCOUNTER 2023-08-13 22:48 | Emergency (ER) | payer OTHER ==
--- OUTSIDE RECORDS SUMMARY | 2023-08-13 23:07 | XMS REPORT | Continuity of Care Document ---
:1965 Author Organization [facility] t Address [address] [place] [address] [address] [place] [address] Care Team Providers Name Role Phone ANAHI CHAVES Primary Care Physician Unavailable Beverly Cartagena Attending Clinician Unavailable TONY DAS Attending Clinician Unavailable Ab Ortega Attending Clinician Tony Das MD Attending Clinician Doctor Unassigned, [place] Attending Clinician Unavailable Ca Gallo Attending Clinician Unavailable Lissy Anderson MA Attending Clinician Unavailable Caprice Landaverde OT Attending Clinician Unavailable Beverly Cartagena MD Attending Clinician [phone] Nenita Marshall OT Attending Clinician Unavailable Reji Patterson Attending Clinician Unavailable Jason Bearden Attending Clinician Unavailable DOM RODRIGUEZ Attending Clinician Unavailable Anahi Chaves Admitting Clinician Unavailable Reji Patterson Admitting Clinician Unavailable Jason Bearden Admitting Clinician Unavailable DOM RODRIGUEZ Admitting Clinician Unavailable Payers Payer Name Policy Type Policy Number Effective Date Expiration Date S [facility] [id number] 2023 PPO/POS 00:00:00 [employer] [id number] 2022 OUT OF NETWORK 00:00:00 [facility] [id number] 2021 2023 00:00:00 00:00:00 Problems Condition Condition Condition Status Onset Resolution Last Treating Co mments Source Name Details Category Date Date Treatment Clinician Date Backache Backache Disease Active Unive rs 9-16 ity of 00:00: [place] [facility] Coronary Coronary Disease Active Unive rs arterioscl arterioscl 9-16 it y of erosis erosis 00:00: [place] [facility] 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 9-16 ity of failure failure 00:00: [place] [facility] Disease of Disease of Disease Active U nivers liver liver 9-16 ity of 00:00: [place] [facility] Dyspnea Dyspnea Disease Active Univers 9-16 ity of 00:00: [place] [facility] Edema of Edema of Disease Active Unive rs lower lower 9-16 [place] Electrocar Electrocar Disease Active U nivers diogram diogram 9-16 ity of abnormal abnormal 00:00: [place] [facility] 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 9-16 it y of lung lung 00:00: [place] [facility] PAD PAD Disease Active 2018-11 Methodi (periphera (periphera 2-10 st l artery l artery 00:00: Hospit a disease) disease) 00 l Stenosis Stenosis Disease Active 2018-11 [facility] di of carotid of carotid 2-10 st artery artery 00:00: Hospita 00 l Pulmonary Pulmonary Disease Active 2018-[address] [facility] hypertensi hypertensi 1-10 [facility] on on 00:[facility]: [facility] 00 Center Acute Acute Disease Active 2019- [facility] blood loss blood loss 1-10 [facility]es anemia anemia 00:00: [facility] 00 Center Alcohol Alcohol Disease Active 2019- [facility] Aspiration Aspiration Disease Active 2019- [facility] pneumonia pneumonia - [facility] 00:[facility]: [facility] 00 Center Acute Acute Disease Recurre 2018-[address] [facility] liver liver nce 12-06 [facility] failure failure 00:00: Medical with with 00 Center hepatic hepatic coma coma Tobacco Tobacco Disease Recurre 2018-[address] [facility] [address] abuse abuse nce 12-06 [facility] Other Other Disease Recurre 2018-[address] [facility] shock shock nce 12-06 [facility] Acute Acute Disease Active 2018-[address] [facility] metabolic metabolic 12-06 [facility] encephalop encephalop 00:00: Me dical athy athy 00 Center Acute Acute Disease Active 2018-[address] [facility] [address] hypoxemic hypoxemic 12-06 [facility] respirator respirator 00:00: Me dical y failure y failure 00 Cent er CATHERINE (acute CATHERINE (acute Disease Active 2018-[address] kidney kidney 12-06 [facility] injury) injury) 00:00: Medical 00 Center High anion High anion Disease Active 2018-[address] gap gap 12-06 [facility] metabolic metabolic 00:00: [facility] acidosis acidosis 00 Center Gastroesop Gastroesop Disease Active M ethodi hageal hageal 01-20 st reflux reflux 00:00: Hospita disease disease 00 l Cavitary Cavitary Disease Active Metho di lesion of lesion of 01-04 lung lung 00:00: Hospita 00 l Hemoptysis Hemoptysis Disease Active M ethodi 01-04 00:00: Hospita 00 l History of History of Disease Active M ethodi tobacco tobacco 01-04 use use 00:00: Hospita 00 l Chronic Chronic Disease Active Methodi obstructiv obstructiv 01-04 e e 00:00: Hospita pulmonary pulmonary 00 [...] ity of 00:00: [place] 00 [facility] 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 01:18:16 l disorder disorder Reece n (disorder) (disorder) Active Problem 08/12/2023 [facility] Carotid Carotid Problem Active 2023-08-12 Me moria bruit bruit 01:18:16 l (finding) (finding) Herm joão Active Problem 08/12/2023 [facility] Cerebrovas Cerebrova Problem Active 2023-08-12 Memoria cular scular 01:18:16 l accident accident Reece n (disorder) (disorder) Active Problem 08/12/2023 [facility] Cervical Cervical Problem Active 2023-08-12 Memoria radiculopa radiculopa 01:18:16 l thy thy [place] (disorder) (disorder) Active Problem 08/12/2023 [facility] Confusiona Confusion Problem Active 2023-08-12 Memoria l state al state 01:18:16 l (disorder) (disorder) He rmann Active Problem 08/12/2023 [facility] Degenerati Degenerat Problem Active 2023-08-12 Memoria on of ion of 01:18:16 l lumbar lumbar [place] interverte interverte bral disc bral disc (disorder) (disorder) Active Problem 08/12/2023 [facility] Family Family Problem Active 2023-08-12 [facility] history of history of 01:18:16 l aneurysm aneurysm Reece n of artery of artery (situation (situation ) ) Active Problem 08/12/2023 [facility] Hyperlipid Hyperlipi Problem Active 2023-08-12 Memoria emia demia 01:18:16 l (disorder) (disorder) He rmann Active Problem 08/12/2023 [facility] Hypertensi Hypertens Problem Active 2023-08-12 Memoria ve elian 01:18:16 l disorder, disorder, Herm joão systemic systemic arterial arterial (disorder) (disorder) Active Problem 08/12/2023 [facility] Left Left Problem Active 2023-08-12 Memor ia carotid carotid 01:18:16 l artery artery [place] stenosis stenosis (disorder) (disorder) Active Problem 08/12/2023 [facility] Memory Memory Problem Active 2023-08-12 [facility] impairment impairment 01:18:16 l (finding) (finding) Herm joão Active Problem 08/12/2023 [facility] Migraine Migraine Problem Active 2023-08-12 Memoria (disorder) (disorder) 01:18:16 l Active [place] Problem 08/12/2023 [facility] Muscle Muscle Problem Active 2023-08-12 [facility] weakness weakness 01:18:16 l of upper of upper Reece n limb limb (finding) (finding) Active Problem 08/12/2023 [facility] Myoclonus Myoclonus Problem Active 2023-08-12 Memoria (finding) (finding) 01:18:16 l Active [place] Problem 08/12/2023 [facility] Zoe Postproced Postproce Problem Active 2023-08-12 Memoria ural state dural 01:18:16 l finding state [place] (finding) finding (finding) Active Problem 08/12/2023 [facility] Foot-drop Foot-drop Problem Active 2023-08-12 Memoria (finding) (finding) 01:18:16 l Active [place] Problem 08/12/2023 [facility] Zoe No known No known Disease Unive rs active active ity of problems problems [facility] Allergies, Adverse Reactions, Alerts Allergy Allergy Status Severity Reaction(s) Onset Inactive Treating Comm ents Source Name Type Date Date Clinician iodine DA Active [place] [facility] IODINE-RASH/ 06-23 Lanny r BLISTER 00:00: [place] [facility] latex DA Active SV BLISTERS, [facility] RASH 06-23 Clear 00:00: [address] Iodine Drug Active Rash Univers Allergy 08-14 ity of 00:00: [address] IODINE DRUG Active Rash Univers INGREDI 08-14 ity of 00:00: [address] latex DA Active SV 2020- [facility] 7-12 Clear 00:00: [address] latex DA Active SV BLISTERS, [facility] RASH 7-12 Clear 00:00: [place] 00 [facility] DYE DRUG Active Unknown-Cmnt Univ ers INGREDI 01-04 ity of 00:00: [place] 00 [facility] Dye Propensi Active Unknown - [...] Univers -IODINE INGREDI 03-31 ity of 00:00: [place] [facility] Betadine Propensi Active Rash Patient Metho di Surgi-Pr ty to 03-[address] ep adverse 00:00: blisterin Hospit a reaction 00 g and l s to rashPatie drug nt reports blisterin g and rash iodine DA Active [place] [facility] 8-07 Clear 00:00: [place] 00 [facility] iodine DA Active [place] [facility] IODINE-RASH/ 07-04 Lanny r BLISTER 00:00: [place] 00 [facility] NO KNOWN Drug Active Univers ALLERGIE Class ity of S [facility] iodine iodine Active Memoria topical< topical< l sup>1</s sup>1</s Reece n up> up> Social History Social Habit Start Date Stop Date Quantity Comments Source Gender identity [facility] Sexual orientation [facility] History of tobacco Cigarette Smoker University of use [facility] Tobacco use and 2023-07-29 2023-07-29 Smokeless Universit y of exposure 00:00:00 00:00:00 tobacco non-user [facility] Alcohol intake 2019-11-06 2019-11-06 Current [facility] 00:00:00 00:00:00 non-drinker of Hospital alcohol (finding) History of Social 2019-11-06 2019-11-[address] function 00:00:00 00:00:00 Hospital Cigarettes smoked 2018-01-19 2018-01-[address] current (pack per 00:00:00 00:00:00 Hospita l day) - Reported Cigarette 2018-01-19 2018-01-19 [facility] pack-years 00:00:00 00:00:00 Hospital Sex [birth year] At [birth year] [facility] 00:00:00 [facility]:00 [facility] Smoking Status Start Date Stop Date Source Tobacco smoking status 2023-06-08 19:29:35 Megan warner [place] Ex-smoker 2018-01-19 00:00:00 2018-01-19 00:00:00 [facility] Medications Ordered Filled Start Stop Current Ordering Indication Dosage Frequency Signature Comments Components Source Medication Medication Date Date Medication? Clinician (SIG) Name Name tiZANidine Yes 4mg Take 1 Unive rs 4 mg tablet 9-01 tablet by ity of 14:27: mouth. [address] Pitavastati Yes Livalo 2 Un malia n (LIVALO) 9-01 mg tablet ity of 2 mg Tab 14:27: Take 1 [place] 16 tablet Medical every day Branch by oral route. propranolol Yes 1{tbl} Take 1 Un malia -hydrochlor 9-01 tablet by ity of othiazide 14:27: mouth. [place] 40-25 mg 16 Medical per tablet Branch sucralfate Yes 1g Take 1 Unive rs 1 gram 9-01 tablet by ity of tablet 14:27: mouth. [address] topiramate Yes 25mg Take 1 Unive rs 25 mg 9-01 tablet by ity of tablet 14:27: mouth. [address] vortioxetin Yes Trintellix Univers e 9-01 10 mg ity of (TRINTELLIX 14:27: tablet [place] 10 mg Tab 16 TAKE 1 Medica l TABLET BY Branch MOUTH ONCE DAILY zolpidem 5 Yes zolpidem 5 U nivers mg tablet 9-01 mg tablet ity o f 14:27: Take 1 [place] 16 tablet Medical every day Branch by oral route. tiZANidine Yes 4mg Take 1 Unive rs 4 mg tablet 07-29 tablet by ity of 14:27: mouth. [address] Branch Pitavastati Yes Livalo 2 Un malia n (LIVALO) 9- mg tablet ity of 2 mg Tab 14:27: Take 1 [place] 16 tablet Medical every day Branch by oral route. propranolol Yes 1{tbl} Take 1 Un malia -hydrochlor 07-29 tablet by ity of othiazide 14:27: mouth. [place] 40-25 mg 16 Medical per tablet Branch sucralfate Yes 1g Take 1 Unive rs 1 gram 07-29 tablet by ity of tablet 14:27: mouth. [address] Branch topiramate Yes 25mg Take 1 Unive rs 25 mg 07-29 tablet by ity of tablet 14:27: mouth. [address] vortioxetin Yes Trintellix Univers e 07-29 10 mg ity of (TRINTELLIX 14:27: [place] 10 mg Tab 16 TAKE 1 Medica l TABLET BY Branch MOUTH ONCE DAILY zolpidem 5 Yes zolpidem 5 U nivers mg tablet 07-29 mg tablet ity o f 14:27: Take 1 [place] 16 tablet Medical every day Branch by oral route. ALPRAZolam Yes alprazolam U nivers 0.5 mg 07-29 0.5 mg ity of tablet 14:24: tablet [place] [address] Take 1 Medical tablet Branch every day by oral route for 10 days. Dexlansopra Yes Dexilant Un malia zole 07-29 60 mg ity of (DEXILANT) 14:24: capsule, Luis as 60 mg 17 delayed Medical capsule release Branch Take 1 capsule every day by oral route for 56 days. amLODIPine Yes 5mg Take 1 Unive rs 5 mg tablet 07-29 tablet by ity of 14:24: mouth. [place] [address] Medical Branch aspirin 81 Yes aspirin 81 U nivers mg EC 9- mg ity of tablet 14:24: tablet,del [place] [address] ayed Medical release Branch Take 1 tablet every day by oral route. enalapril Yes 20mg Take 1 Univer s 20 mg 07-29 tablet by ity of tablet 14:24: mouth [place] 17 every Medical morning. Branch hydrOXYzine Yes 25mg Take 1 Univ ers 25 mg 07-29 tablet by ity of tablet 14:24: mouth. [address] Branch lactulose Yes 30mL 30 mL. Univer s 10 gram/15 07-29 ity of mL solution 14:24: [address] Branch levoFLOXaci Yes Levaquin Un malia n 07-29 500 mg ity of (LEVAQUIN) 14:24: tablet [place] 500 mg 17 Take 1 Medical tablet tablet Branch every 24 hours by oral route. lidocaine 5 Yes lidocaine U nivers % (700 07-29 5 % ity of mg/patch) 14:24: topical [place] patch 17 patch Medical APPLY 1 Branch PATCH BY TRANSDERMA L ROUTE ONCE DAILY (MAY WEAR UP TO 12HOURS.) lisinopriL Yes lisinopril U nivers 5 mg tablet 07-29 5 mg ity of 14:24: tablet [place] [address] Take 1 Medical tablet Branch every day by oral route. morphine ER Yes MS Contin U nivers (MS CONTIN) 07-29 15 mg ity of 15 mg 12 hr 14:24: tablet,ext [place] tablet 17 ended Medical release Branch Take 1 tablet every 8 hours by oral route. ondansetron Yes 4mg Take 1 Univ ers 4 mg 07-29 tablet by ity of disintegrat 14:24: [place]. [place] tablet [place] Branch Oxycodone Yes oxycodone Uni vers 10 mg Tab 07-29 10 mg ity of 14:24: tablet [place] [address] Take 1 Medical tablet Branch every 6 hours by oral route. proMETHazin Yes promethazi Univers e 25 mg 07-29 ne 25 mg ity of tablet 14:24: tablet [place] [address] Take 1 Medical tablet Branch every 4 hours by oral route as needed. ALPRAZolam Yes alprazolam U nivers 0.5 mg 07-29 0.5 mg ity of tablet 14:24: tablet [place] [address] Take 1 Medical tablet Branch every day by oral route for 10 days. Dexlansopra Yes Dexilant Un malia zole 07-29 60 mg ity of (DEXILANT) 14:24: capsule, Luis as 60 mg 17 delayed Medical capsule release Branch Take 1 capsule every day by oral route for 56 days. amLODIPine 2022-0 Yes 5mg Take 1 Unive rs 5 mg tablet 07-29 tablet by ity of 14:24: mouth. [address] aspirin 81 2022-0 Yes aspirin 81 U nivers mg EC 07-29 mg ity of tablet 14:24: tablet,del [place] [address] ayed Medical release [place] Take 1 tablet every day by oral route. enalapril 2022-0 Yes 20mg Take 1 Univer s 20 mg 07-29 tablet by ity of tablet 14:24: mouth [place] [address] every Medical morning. Branch hydrOXYzine 0 Yes 25mg Take 1 Univ ers 25 mg 07-29 tablet by ity of tablet 14:24: mouth. [address] lactulose 0 Yes 30mL 30 mL. Univer s 10 gram/15 07-29 ity of mL solution 14:24: [address] levoFLOXaci Yes Levaquin Un malia n 07-29 500 mg ity of (LEVAQUIN) 14:24: tablet [place] 500 mg 17 Take 1 Medical tablet tablet Branch every 24 hours by oral route. lidocaine 5 0 Yes lidocaine U nivers % (700 07-29 5 % ity of mg/patch) 14:24: topical [place] patch patch Medical APPLY 1 Branch PATCH BY TRANSDERMA L ROUTE ONCE DAILY (MAY WEAR UP TO 12HOURS.) lisinopriL 2022-0 Yes lisinopril U nivers 5 mg tablet 07-29 5 mg ity of 14:24: tablet [place] [address] Take 1 Medical tablet Branch every day by oral route. morphine ER 0 Yes MS Contin U nivers (MS CONTIN) 07-29 15 mg ity of 15 mg 12 hr 14:24: tablet,ext [place] tablet 17 ended Medical release Branch Take 1 tablet every 8 hours by oral route. ondansetron 0 Yes 4mg Take 1 Univ ers 4 mg 07-29 tablet by ity of disintegrat 14:24: [place]. [place] [address] [place] [address] Oxycodone 0 Yes oxycodone Uni vers 10 mg Tab 07-29 10 mg ity of 14:24: tablet [place] 17 Take 1 Medical tablet Branch every 6 hours by oral route. proMETHazin 0 Yes promethazi Univers e 25 mg 9 ne 25 mg ity of tablet 14:24: tablet 17 Take 1 Medical tablet Branch every 4 hours by oral route as needed. topiramate Yes = 1 tab, Mem oria 50 mg oral 7-20 PO, BID, # l tablet 21:46: 180 tab, 1 Mary nn 00 Refill(s), Pharmacy: [id number], 160.02, cm, 06/08/23 14:38:00 CDT, Height, 63.636, kg, 06/08/23 14:38:00 CDT, Weight topiramate Yes = 1 tab, Mem oria 50 mg oral 7-20 PO, BID, # l tablet 21:46: 180 tab, 1 Mary nn 00 Refill(s), Pharmacy: [id number], 160.02, cm, 06/08/23 14:38:00 CDT, Height, 63.636, kg, 06/08/23 14:38:00 CDT, Weight LORazepam 1 2022-0 Yes TAKE 1 OR U nivers mg tablet 2-23 2 TABLETS ity o f 00:00: 30 MINS [place] 00 PRIOR TO Medical IMAGE Branch LORazepam 1 2022-0 Yes TAKE 1 OR U nivers mg tablet 2-23 2 TABLETS ity o f 00:00: 30 MINS 00 PRIOR TO Medical IMAGE Branch LORazepam 1 2022-0 Yes TAKE 1 OR U nivers mg tablet 2-23 2 TABLETS ity o f 00:00: 30 MINS [place] 00 PRIOR TO Medical IMAGE Branch BOTOX 200 2022-0 Yes INJECT 200 Un malia unit 2-21 UNITS ity of 00:00: INTRA-MUSC ULARLY Medical INTO THE Branch HEAD EVERY 90 DAYS, TO BE INJECTED IN THE PHYSICIAN' S OFFICE BOTOX 200 2022-0 Yes INJECT 200 Un malia unit 2-21 UNITS ity of 00:00: INTRA-MUSC ULARLY Medical INTO THE Branch HEAD EVERY 90 DAYS, TO BE INJECTED IN THE PHYSICIAN' S OFFICE BOTOX 200 2022-0 Yes INJECT 200 Un malia unit 2-21 UNITS ity of 00:00: INTRA-MUSC [place] 00 ULARLY Medical INTO THE Branch HEAD EVERY 90 DAYS, TO BE INJECTED IN THE PHYSICIAN' S OFFICE ONAbotulinu 2022-0 Yes See Memori a mtoxinA 200 2-20 Instructio l units 16:55: ns, Bring [place] injection 00 to physician' s office for injection, # 1 ea, 3 Refill(s), [facility], cm, 09/07/22 15:06:00 CDT, Height, 50.511, kg, 09/07/22 15:06:00 CDT, Weight ONAbotulinu 2023-0 Yes See Memori a mtoxinA 200 2-20 Instructio l units 16:55: ns, Bring [place] injection 00 to physician' s office for injection, # 1 ea, 3 Refill(s), [facility], 160.[facility], cm, 09/07/22 15:06:00 CDT, Height, 50.511, kg, 09/07/22 15:06:00 CDT, Weight ONAbotulinu 3-0 Yes See Memori a mtoxinA 200 2-20 Instructio l units 16:55: ns, Bring [place] injection 00 to physician' s office for injection, # 1 ea, 3 Refill(s), [facility], 160.[facility], cm, 09/07/22 15:06:00 CDT, Height, 50.511, kg, 09/07/22 15:06:00 CDT, Weight ONAbotulinu 3-0 Yes See Memori a mtoxinA 200 2-20 Instructio l units 16:55: ns, Bring [place] injection 00 to physician' s office for injection, # 1 ea, 3 Refill(s), [facility], 160.[facility], cm, 09/07/22 15:06:00 CDT, Height, 50.511, kg, 09/07/22 15:06:00 CDT, Weight ONAbotulinu 2022-0 Yes See Memori a mtoxinA 200 2-20 Instructio l units 16:55: ns, Bring [place] injection 00 to physician' s office for injection, # 1 ea, 3 Refill(s), [facility], 160.[facility], cm, 09/07/22 15:06:00 CDT, Height, 50.511, kg, 09/07/22 15:06:00 CDT, Weight ONAbotulinu 2023-0 Yes See Memori a mtoxinA 200 2-20 Instructio l units 16:55: ns, Bring [place] injection 00 to physician' s office for injection, # 1 ea, 3 Refill(s), Pharmacy: [facility], 160.02, cm, 09/07/22 15:06:00 CDT, Height, 50.511, kg, 09/07/22 15:06:00 CDT, Weight ONAbotulinu 2023-0 Yes See Memori a mtoxinA 200 2-20 Instructio l units 16:55: ns, Bring [place] injection 00 to physician' s office for injection, # 1 ea, 3 Refill(s), Pharmacy: [facility], 160.02, cm, 09/07/22 15:06:00 CDT, Height, 50.511, kg, 09/07/22 15:06:00 CDT, Weight ONAbotulinu 2023-0 Yes See Memori a mtoxinA 200 2-20 Instructio l units 16:55: ns, Bring [place] injection 00 to physician' s office for injection, # 1 ea, 3 Refill(s), Pharmacy: [facility], 160.02, cm, 09/07/22 15:06:00 CDT, Height, 50.511, kg, 09/07/22 15:06:00 CDT, Weight ONAbotulinu 2023-0 Yes See Memori a mtoxinA 200 2-20 Instructio l units 16:55: ns, Bring [place] injection 00 to physician' s office for injection, # 1 ea, 3 Refill(s), Pharmacy: [facility], 160.02, cm, 09/07/22 15:06:00 CDT, Height, 50.511, kg, 09/07/22 15:06:00 CDT, Weight ONAbotulinu 2023-0 Yes See Memori a mtoxinA 200 2-20 Instructio l units 16:55: ns, Bring [place] injection 00 to physician' s office for injection, # 1 ea, 3 Refill(s), Pharmacy: [facility], 160.02, cm, 09/07/22 15:06:00 CDT, Height, 50.511, kg, 09/07/22 15:06:00 CDT, Weight ONAbotulinu 2023-0 Yes See Memori a mtoxinA 200 2-20 Instructio l units 16:55: ns, Bring [place] injection 00 to physician' s office for injection, # 1 ea, 3 Refill(s), Pharmacy: [facility], 160.02, cm, 09/07/22 15:06:00 CDT, Height, 50.511, kg, 09/07/22 15:06:00 CDT, Weight ONAbotulinu 2023-0 Yes See Memori a mtoxinA 200 2-20 Instructio l units 16:55: ns, Bring [place] injection 00 to physician' s office for injection, # 1 ea, 3 Refill(s), Pharmacy: [facility], 160.02, cm, 09/07/22 15:06:00 CDT, Height, 50.511, kg, 09/07/22 15:06:00 CDT, Weight ONAbotulinu 2023-0 Yes See Memori a mtoxinA 200 2-20 Instructio l units 16:55: ns, Bring [place] injection 00 to physician' s office for injection, # 1 ea, 3 Refill(s), Pharmacy: [facility], 160.02, cm, 09/07/22 15:06:00 CDT, Height, 50.511, kg, 09/07/22 15:06:00 CDT, Weight ONAbotulinu 2023-0 Yes See Memori a mtoxinA 200 2-20 Instructio l units 16:55: ns, Bring [place] injection 00 to physician' s office for injection, # 1 ea, 3 Refill(s), Pharmacy: [facility], 160.02, cm, 09/07/22 15:06:00 CDT, Height, 50.511, kg, 09/07/22 15:06:00 CDT, Weight ONAbotulinu 2023-0 Yes See Memori a mtoxinA 200 2-20 Instructio l units 16:55: ns, Bring [place] injection 00 to physician' s office for injection, # 1 ea, 3 Refill(s), Pharmacy: [facility], 160.02, cm, 09/07/22 15:06:00 CDT, Height, 50.511, kg, 09/07/22 15:06:00 CDT, Weight ONAbotulinu 2023-0 Yes See Memori a mtoxinA 200 2-20 Instructio l units 16:55: ns, Bring [place] injection 00 to physician' s office for injection, # 1 ea, 3 Refill(s), Pharmacy: [facility], 160.02, cm, 09/07/22 15:06:00 CDT, Height, 50.511, kg, 09/07/22 15:06:00 CDT, Weight ONAbotulinu 3-0 Yes See Memori a mtoxinA 200 2-20 Instructio l units 16:55: ns, Bring [place] injection 00 to physician' s office for injection, # 1 ea, 3 Refill(s), Pharmacy: [facility], 160.02, cm, 09/07/22 15:06:00 CDT, Height, 50.511, kg, 09/07/22 15:06:00 CDT, Weight ONAbotulinu 3-0 Yes See Memori a mtoxinA 200 2-20 Instructio l units 16:55: ns, Bring [place] injection 00 to physician' s office for injection, # 1 ea, 3 Refill(s), Pharmacy: [facility], 160.02, cm, 09/07/22 15:06:00 CDT, Height, 50.511, kg, 09/07/22 15:06:00 CDT, Weight traZODone 3-0 Yes 50mg Take 50 mg Un malia 50 mg 1-10 by mouth ity of tablet 00:00: at [place] [address] bedtime. Medical Branch traZODone 2023-0 Yes 50mg Take 50 mg Un malia 50 mg 1-10 by mouth ity of tablet 00:00: at [place] [address] bedtime. Medical Branch traZODone 2023-0 Yes 50mg Take 1 Univer s 50 mg 1-10 tablet by ity of tablet 00:00: mouth at [place] [address] bedtime. Medical Branch traZODone 3-0 Yes 50mg Take 1 Un[facility] s 50 mg 1-10 tablet by ity of tablet 00:00: mouth at [place] 00 bedtime. Medical Branch metoprolol 2022-0 Yes 50mg Take 50 mg U nivers tartrate 50 1-09 by mouth ity of mg tablet 00:00: in the 00 morning Medical and 50 mg Branch in the evening. metoprolol 2022-0 Yes 50mg Take 50 mg U nivers tartrate 50 -09 by mouth ity of mg tablet 00:00: in the 00 morning Medical and 50 mg Branch in the evening. metoprolol 2022-0 Yes 50mg Take 1 [facility] rs tartrate 50 1-09 tablet by ity of mg tablet 00:00: mouth [place] 00 the Medical morning Branch and 1 tablet in the evening. metoprolol 2022-0 Yes 50mg Take 1 [facility] tartrate 50 1-09 tablet by it[facility] of mg tablet 00:00: [place] 00 the Medical morning Branch and 1 tablet in the evening. trazodone 2021-11 Yes TAKE 1 [facility] 50 mg oral 2-19 TABLET BY l tablet 19:09: MOUTH [place] 00 EVERYDAY AT BEDTIME Metoprolol 2021-11 Yes TAKE 1 [facility] Tartrate 50 2-19 TABLET BY l mg oral 19:09: MOUTH [place] tablet 00 TWICE DAILY FLUoxetine 2021-11 Yes TAKE 2 [facility] 40 mg oral 2-19 CAPSULES l capsule 19:09: BY MOUTH [place] 00 EVERY DAY sucralfate 2021-11 Yes = 10 ml, [facility] 2-19 PO, Before l 19:09: Meals & [place] 00 Bedtime, # 200 ml, 0 Refill(s) trazodone 2021-11 Yes TAKE 1 [facility] 50 mg oral 2-19 TABLET BY l tablet 19:09: MOUTH [place] 00 EVERYDAY AT BEDTIME Metoprolol 2021-11 Yes TAKE 1 [facility] Tartrate 50 2-19 TABLET BY l mg oral 19:09: MOUTH [place] tablet 00 TWICE DAILY FLUoxetine 2021-11 Yes TAKE 2 [facility] 40 mg oral 2-19 CAPSULES l capsule 19:09: BY MOUTH [place] 00 EVERY DAY sucralfate 2021-11 Yes = 10 ml, [facility] 2-19 PO, Before l 19:09: Meals & [place] 00 Bedtime, # 200 ml, 0 Refill(s) trazodone 2021-11 Yes TAKE 1 [facility] 50 mg oral 2-19 TABLET BY l tablet 19:09: MOUTH [place] 00 EVERYDAY AT BEDTIME Metoprolol 2021-11 Yes TAKE 1 [facility] Tartrate 50 2-19 TABLET BY l mg oral 19:09: MOUTH [place] tablet 00 TWICE DAILY FLUoxetine 2021-11 Yes TAKE 2 [facility] 40 mg oral 2-19 CAPSULES l capsule 19:09: BY MOUTH [place] 00 EVERY DAY sucralfate 2021-11 Yes = 10 ml, [facility] 2-19 PO, Before l 19:09: Meals & [place] 00 Bedtime, # 200 ml, 0 Refill(s) trazodone 2021-11 Yes TAKE 1 [facility] 50 mg oral 2-19 TABLET BY l tablet 19:09: MOUTH [place] 00 EVERYDAY AT BEDTIME Metoprolol 2021-11 Yes TAKE 1 [facility] Tartrate 50 2-19 TABLET BY l mg oral 19:09: MOUTH [place] tablet 00 TWICE DAILY FLUoxetine 2021-11 Yes TAKE 2 [facility] 40 mg oral 2-19 CAPSULES l capsule 19:09: BY MOUTH [place] 00 EVERY DAY sucralfate 2021-11 Yes = 10 ml, [facility] 2-19 PO, Before l 19:09: Meals & [place] 00 Bedtime, # 200 ml, 0 Refill(s) trazodone 2021-11 Yes TAKE 1 [facility] 50 mg oral 2-19 TABLET BY l tablet 19:09: MOUTH [place] 00 EVERYDAY AT BEDTIME Metoprolol 2021-11 Yes TAKE 1 [facility] Tartrate 50 2-19 TABLET BY l mg oral 19:09: MOUTH [place] tablet 00 TWICE DAILY FLUoxetine 2021-11 Yes TAKE 2 [facility] 40 mg oral 2-19 CAPSULES l capsule 19:09: BY MOUTH [place] 00 EVERY DAY sucralfate 2021-11 Yes = 10 ml, [facility] 2-19 PO, Before l 19:09: Meals & [place] 00 Bedtime, # 200 ml, 0 Refill(s) trazodone 2021-11 Yes TAKE 1 [facility] 50 mg oral 2-19 TABLET BY l tablet 19:09: MOUTH [place] 00 EVERYDAY AT BEDTIME Metoprolol 2021-11 Yes TAKE 1 [facility] Tartrate 50 2-19 TABLET BY l mg oral 19:09: MOUTH [place] tablet 00 TWICE DAILY FLUoxetine 2021-11 Yes TAKE 2 [facility] 40 mg oral 2-19 CAPSULES l capsule 19:09: BY MOUTH [place] 00 EVERY DAY sucralfate 2021-11 Yes = 10 ml, [facility] 2-19 PO, Before l 19:09: Meals & [place] 00 Bedtime, # 200 ml, 0 Refill(s) trazodone 2021-11 Yes TAKE 1 [facility] 50 mg oral 2-19 TABLET BY l tablet 19:09: MOUTH [place] 00 EVERYDAY AT BEDTIME Metoprolol 2021-11 Yes TAKE 1 [facility] Tartrate 50 2-19 TABLET BY l mg oral 19:09: MOUTH [place] tablet 00 TWICE DAILY FLUoxetine 2021-11 Yes TAKE 2 [facility] 40 mg oral 2-19 CAPSULES l capsule 19:09: BY MOUTH [place] 00 EVERY DAY sucralfate 2021-11 Yes = 10 ml, [facility] 2-19 PO, Before l 19:09: Meals & [place] 00 Bedtime, # 200 ml, 0 Refill(s) trazodone 2021-11 Yes TAKE 1 [facility] 50 mg oral 2-19 TABLET BY l tablet 19:09: MOUTH [place] 00 EVERYDAY AT BEDTIME Metoprolol 2021-11 Yes TAKE 1 [facility] Tartrate 50 2-19 TABLET BY l mg oral 19:09: MOUTH [place] tablet 00 TWICE DAILY FLUoxetine 2021-11 Yes TAKE 2 [facility] 40 mg oral 2-19 CAPSULES l capsule 19:09: BY MOUTH [place] 00 EVERY DAY sucralfate 2021-11 Yes = 10 ml, [facility] 2-19 PO, Before l 19:09: Meals & [place] 00 Bedtime, # 200 ml, 0 Refill(s) trazodone 2021-11 Yes TAKE 1 [facility] 50 mg oral 2-19 TABLET BY l tablet 19:09: MOUTH [place] 00 EVERYDAY AT BEDTIME Metoprolol 2021-11 Yes TAKE 1 [facility] Tartrate 50 2-19 TABLET BY l mg oral 19:09: MOUTH [place] tablet 00 TWICE DAILY FLUoxetine 2021-11 Yes TAKE 2 [facility] 40 mg oral 2-19 CAPSULES l capsule 19:09: BY MOUTH [place] 00 EVERY DAY sucralfate 2021-11 Yes = 10 ml, [facility] 2-19 PO, Before l 19:09: Meals & [place] 00 Bedtime, # 200 ml, 0 Refill(s) trazodone 2021-11 Yes TAKE 1 [facility] 50 mg oral 2-19 TABLET BY l tablet 19:09: MOUTH [place] 00 EVERYDAY AT BEDTIME Metoprolol 2021-11 Yes TAKE 1 [facility] Tartrate 50 2-19 TABLET BY l mg oral 19:09: MOUTH [place] tablet 00 TWICE DAILY FLUoxetine 2021-11 Yes TAKE 2 [facility] 40 mg oral 2-19 CAPSULES l capsule 19:09: BY MOUTH [place] 00 EVERY DAY sucralfate 2021-11 Yes = 10 ml, [facility] 2-19 PO, Before l 19:09: Meals & [place] 00 Bedtime, # 200 ml, 0 Refill(s) trazodone 2021-11 Yes TAKE 1 [facility] 50 mg oral 2-19 TABLET BY l tablet 19:09: MOUTH [place] 00 EVERYDAY AT BEDTIME Metoprolol 2021-11 Yes TAKE 1 [facility] Tartrate 50 2-19 TABLET BY l mg oral 19:09: MOUTH [place] tablet 00 TWICE DAILY FLUoxetine 2021-11 Yes TAKE 2 [facility] 40 mg oral 2-19 CAPSULES l capsule 19:09: BY MOUTH [place] 00 EVERY DAY sucralfate 2021-11 Yes = 10 ml, [facility] 2-19 PO, Before l 19:09: Meals & [place] 00 Bedtime, # 200 ml, 0 Refill(s) trazodone 2021-11 Yes TAKE 1 [facility] 50 mg oral 2-19 TABLET BY l tablet 19:09: MOUTH [place] 00 EVERYDAY AT BEDTIME Metoprolol 2021-11 Yes TAKE 1 [facility] Tartrate 50 2-19 TABLET BY l mg oral 19:09: MOUTH [place] tablet 00 TWICE DAILY FLUoxetine 2021-11 Yes TAKE 2 [facility] 40 mg oral 2-19 CAPSULES l capsule 19:09: BY MOUTH [place] 00 EVERY DAY sucralfate 2021-11 Yes = 10 ml, [facility] 2-19 PO, Before l 19:09: Meals & [place] 00 Bedtime, # 200 ml, 0 Refill(s) trazodone 2021-11 Yes TAKE 1 [facility] 50 mg oral 2-19 TABLET BY l tablet 19:09: MOUTH [place] 00 EVERYDAY AT BEDTIME Metoprolol 2021-11 Yes TAKE 1 [facility] Tartrate 50 2-19 TABLET BY l mg oral 19:09: MOUTH [place] tablet 00 TWICE DAILY FLUoxetine 2021-11 Yes TAKE 2 [facility] 40 mg oral 2-19 CAPSULES l capsule 19:09: BY MOUTH [place] 00 EVERY DAY sucralfate 2021-11 Yes = 10 ml, [facility] 2-19 PO, Before l 19:09: Meals & [place] 00 Bedtime, # 200 ml, 0 Refill(s) trazodone 2021-11 Yes TAKE 1 [facility] 50 mg oral 2-19 TABLET BY l tablet 19:09: MOUTH [place] 00 EVERYDAY AT BEDTIME Metoprolol 2021-11 Yes TAKE 1 [facility] Tartrate 50 2-19 TABLET BY l mg oral 19:09: MOUTH [place] tablet 00 TWICE DAILY FLUoxetine 2021-11 Yes TAKE 2 [facility] 40 mg oral 2-19 CAPSULES l capsule 19:09: BY MOUTH [place] 00 EVERY DAY sucralfate 2021-11 Yes = 10 ml, [facility] 2-19 PO, Before l 19:09: Meals & [place] 00 Bedtime, # 200 ml, 0 Refill(s) trazodone 2021-11 Yes TAKE 1 [facility] 50 mg oral 2-19 TABLET BY l tablet 19:09: MOUTH [place] 00 EVERYDAY AT BEDTIME Metoprolol 2021-11 Yes TAKE 1 [facility] Tartrate 50 2-19 TABLET BY l mg oral 19:09: MOUTH [place] tablet 00 TWICE DAILY FLUoxetine 2021-11 Yes TAKE 2 [facility] 40 mg oral 2-19 CAPSULES l capsule 19:09: BY MOUTH [place] 00 EVERY DAY sucralfate 2021-11 Yes = 10 ml, [facility] 2-19 PO, Before l 19:09: Meals & [place] 00 Bedtime, # 200 ml, 0 Refill(s) trazodone 2021-11 Yes TAKE 1 [facility] 50 mg oral 2-19 TABLET BY l tablet 19:09: MOUTH [place] 00 EVERYDAY AT BEDTIME Metoprolol 2021-11 Yes TAKE 1 [facility] Tartrate 50 2-19 TABLET BY l mg oral 19:09: MOUTH [place] tablet 00 TWICE DAILY FLUoxetine 2021-11 Yes TAKE 2 [facility] 40 mg oral 2-19 CAPSULES l capsule 19:09: BY MOUTH [place] 00 EVERY DAY sucralfate 2021-11 Yes = 10 ml, [facility] 2-19 PO, Before l 19:09: Meals & [place] 00 Bedtime, # 200 ml, 0 Refill(s) trazodone 2021-11 Yes TAKE 1 [facility] 50 mg oral 2-19 TABLET BY l tablet 19:09: MOUTH [place] 00 EVERYDAY AT BEDTIME Metoprolol 2021-11 Yes TAKE 1 [facility] Tartrate 50 2-19 TABLET BY l mg oral 19:09: MOUTH [place] tablet 00 TWICE DAILY FLUoxetine 2021-11 Yes TAKE 2 [facility] 40 mg oral 2-19 CAPSULES l capsule 19:09: BY MOUTH [place] 00 EVERY DAY trazodone 2021-11 Yes TAKE 1 [facility] 50 mg oral 2-19 TABLET BY l tablet 19:09: MOUTH [place] 00 EVERYDAY AT BEDTIME Metoprolol 2021-11 Yes TAKE 1 [facility] Tartrate 50 2-19 TABLET BY l mg oral 19:09: MOUTH [place] tablet 00 TWICE DAILY sucralfate 2021-11 Yes = 10 ml, [facility] 2-19 PO, Before l 19:09: Meals & [place] 00 Bedtime, # 200 ml, 0 Refill(s) FLUoxetine 2021-11 Yes TAKE 2 [facility] 40 mg oral 2-19 CAPSULES l capsule 19:09: BY MOUTH [place] 00 EVERY DAY sucralfate 2021-11 Yes = 10 ml, [facility] 2-19 PO, Before l 19:09: Meals & [place] 00 Bedtime, # 200 ml, 0 Refill(s) trazodone 2021-11 Yes TAKE 1 [facility] 50 mg oral 2-19 TABLET BY l tablet 19:09: MOUTH [place] 00 EVERYDAY AT BEDTIME Metoprolol 2021-11 Yes TAKE 1 [facility] Tartrate 50 2-19 TABLET BY l mg oral 19:09: MOUTH [place] tablet 00 TWICE DAILY FLUoxetine 2021-11 Yes TAKE 2 [facility] 40 mg oral 2-19 CAPSULES l capsule 19:09: BY MOUTH [place] 00 EVERY DAY sucralfate 2021-11 Yes = 10 ml, [facility] 2-19 PO, Before l 19:09: Meals & [place] 00 Bedtime, # 200 ml, 0 Refill(s) trazodone 2021-11 Yes TAKE 1 [facility] 50 mg oral 2-19 TABLET BY l tablet 19:09: MOUTH [place] 00 EVERYDAY AT BEDTIME Metoprolol 2021-11 Yes TAKE 1 [facility] Tartrate 50 2-19 TABLET BY l mg oral 19:09: MOUTH [place] tablet 00 TWICE DAILY FLUoxetine 2021-11 Yes TAKE 2 [facility] 40 mg oral 2-19 CAPSULES l capsule 19:09: BY MOUTH [place] 00 EVERY DAY sucralfate 2021-11 Yes = 10 ml, [facility] 2-19 PO, Before l 19:09: Meals & [place] 00 Bedtime, # 200 ml, 0 Refill(s) trazodone 2021-11 Yes TAKE 1 [facility] 50 mg oral 2-19 TABLET BY l tablet 19:09: MOUTH [place] 00 EVERYDAY AT BEDTIME Metoprolol 2021-11 Yes TAKE 1 [facility] Tartrate 50 2-19 TABLET BY l mg oral 19:09: MOUTH [place] tablet 00 TWICE DAILY FLUoxetine 2021-11 Yes TAKE 2 [facility] 40 mg oral 2-19 CAPSULES l capsule 19:09: BY MOUTH [place] 00 EVERY DAY sucralfate 2021-11 Yes = 10 ml, [facility] 2-19 PO, Before l 19:09: Meals & [place] 00 Bedtime, # 200 ml, 0 Refill(s) trazodone 2021-11 Yes TAKE 1 [facility] 50 mg oral 2-19 TABLET BY l tablet 19:09: MOUTH [place] 00 EVERYDAY AT BEDTIME Metoprolol 2021-11 Yes TAKE 1 [facility] Tartrate 50 2-19 TABLET BY l mg oral 19:09: MOUTH [place] tablet 00 TWICE DAILY FLUoxetine 2021-11 Yes TAKE 2 [facility] 40 mg oral 2-19 CAPSULES l capsule 19:09: BY MOUTH [place] 00 EVERY DAY sucralfate 2021-11 Yes = 10 ml, [facility] 2-19 PO, Before l 19:09: Meals & [place] 00 Bedtime, # 200 ml, 0 Refill(s) trazodone 2021-11 Yes TAKE 1 [facility] 50 mg oral 2-19 TABLET BY l tablet 19:09: MOUTH [place] 00 EVERYDAY AT BEDTIME Metoprolol 2021-11 Yes TAKE 1 [facility] Tartrate 50 2-19 TABLET BY l mg oral 19:09: MOUTH [place] tablet 00 TWICE DAILY FLUoxetine 2021-11 Yes TAKE 2 [facility] 40 mg oral 2-19 CAPSULES l capsule 19:09: BY MOUTH [place] 00 EVERY DAY sucralfate 2021-11 Yes = 10 ml, [facility] 2-19 PO, Before l 19:09: Meals & [place] 00 Bedtime, # 200 ml, 0 Refill(s) trazodone 2021-11 Yes TAKE 1 [facility] 50 mg oral 2-19 TABLET BY l tablet 19:09: MOUTH [place] 00 EVERYDAY AT BEDTIME Metoprolol 2021-11 Yes TAKE 1 [facility] Tartrate 50 2-19 TABLET BY l mg oral 19:09: MOUTH [place] tablet 00 TWICE DAILY FLUoxetine 2021-11 Yes TAKE 2 [facility] 40 mg oral 2-19 CAPSULES l capsule 19:09: BY MOUTH [place] 00 EVERY DAY sucralfate 2021-11 Yes = 10 ml, [facility] 2-19 PO, Before l 19:09: Meals & [place] 00 Bedtime, # 200 ml, 0 Refill(s) trazodone 2021-11 Yes TAKE 1 [facility] 50 mg oral 2-19 TABLET BY l tablet 19:09: MOUTH [place] 00 EVERYDAY AT BEDTIME Metoprolol 2021-11 Yes TAKE 1 [facility] Tartrate 50 2-19 TABLET BY l mg oral 19:09: MOUTH [place] tablet 00 TWICE DAILY FLUoxetine 2021-11 Yes TAKE 2 [facility] 40 mg oral 2-19 CAPSULES l capsule 19:09: BY MOUTH [place] 00 EVERY DAY sucralfate 2021-11 Yes = 10 ml, [facility] 2-19 PO, Before l 19:09: Meals & [place] 00 Bedtime, # 200 ml, 0 Refill(s) trazodone 2021-11 Yes TAKE 1 [facility] 50 mg oral 2-19 TABLET BY l tablet 19:09: MOUTH [place] 00 EVERYDAY AT BEDTIME Metoprolol 2021-11 Yes TAKE 1 [facility] Tartrate 50 2-19 TABLET BY l mg oral 19:09: MOUTH [place] tablet 00 TWICE DAILY FLUoxetine 2021-11 Yes TAKE 2 [facility] 40 mg oral 2-19 CAPSULES l capsule 19:09: BY MOUTH [place] 00 EVERY DAY sucralfate 2021-11 Yes = 10 ml, [facility] 2-19 PO, Before l 19:09: Meals & [place] 00 Bedtime, # 200 ml, 0 Refill(s) trazodone 2021-11 Yes TAKE 1 [facility] 50 mg oral 2-19 TABLET BY l tablet 19:09: MOUTH [place] 00 EVERYDAY AT BEDTIME Metoprolol 2021-11 Yes TAKE 1 [facility] Tartrate 50 2-19 TABLET BY l mg oral 19:09: MOUTH [place] tablet 00 TWICE DAILY FLUoxetine 2021-11 Yes TAKE 2 [facility] 40 mg oral 2-19 CAPSULES l capsule 19:09: BY MOUTH [place] 00 EVERY DAY sucralfate 2021-11 Yes = 10 ml, [facility] 2-19 PO, Before l 19:09: Meals & [place] 00 Bedtime, # 200 ml, 0 Refill(s) trazodone 2021-11 Yes TAKE 1 [facility] 50 mg oral 2-19 TABLET BY l tablet 19:09: MOUTH [place] 00 EVERYDAY AT BEDTIME Metoprolol 2021-11 Yes TAKE 1 [facility] Tartrate 50 2-19 TABLET BY l mg oral 19:09: MOUTH [place] tablet 00 TWICE DAILY FLUoxetine 2021-11 Yes TAKE 2 [facility] 40 mg oral 2-19 CAPSULES l capsule 19:09: BY MOUTH [place] 00 EVERY DAY sucralfate 2021-11 Yes = 10 ml, [facility] 2-19 PO, Before l 19:09: Meals & [place] 00 Bedtime, # 200 ml, 0 Refill(s) Dexilant 60 2021-11 Yes 60 mg = 1 M [facility] mg oral 2-19 cap, PO, l delayed 19:08: Daily, # [place] release 00 30 cap, 1 capsule Refill(s) Dexilant 60 2021-11 Yes 60 mg = 1 M [facility] mg oral 2-19 cap, PO, l delayed 19:08: Daily, # [place] release 00 30 cap, 1 capsule Refill(s) Dexilant 60 2021-11 Yes 60 mg = 1 M [facility] mg oral 2-19 cap, PO, l delayed 19:08: Daily, # [place] release 00 30 cap, 1 capsule Refill(s) Dexilant 60 2021-11 Yes 60 mg = 1 M [facility] mg oral 2-19 cap, PO, l delayed 19:08: Daily, # [place] release 00 30 cap, 1 capsule Refill(s) Dexilant 60 2021-11 Yes 60 mg = 1 M [facility] mg oral 2-19 cap, PO, l delayed 19:08: Daily, # [place] release 00 30 cap, 1 capsule Refill(s) Dexilant 60 2021-11 Yes 60 mg = 1 M [facility] mg oral 2-19 cap, PO, l delayed 19:08: Daily, # [place] release 00 30 cap, 1 capsule Refill(s) Dexilant 60 2021-11 Yes 60 mg = 1 M [facility] mg oral 2-19 cap, PO, l delayed 19:08: Daily, # [place] release 00 30 cap, 1 capsule Refill(s) Dexilant 60 2021-11 Yes 60 mg = 1 M [facility] mg oral 2-19 cap, PO, l delayed 19:08: Daily, # [place] release 00 30 cap, 1 capsule Refill(s) Dexilant 60 2021-11 Yes 60 mg = 1 M [facility] mg oral 2-19 cap, PO, l delayed 19:08: Daily, # [place] release 00 30 cap, 1 capsule Refill(s) Dexilant 60 2021-11 Yes 60 mg = 1 M [facility] mg oral 2-19 cap, PO, l delayed 19:08: Daily, # [place] release 00 30 cap, 1 capsule Refill(s) Dexilant 60 2021-11 Yes 60 mg = 1 M [facility] mg oral 2-19 cap, PO, l delayed 19:08: Daily, # [place] release 00 30 cap, 1 capsule Refill(s) Dexilant 60 2021-11 Yes 60 mg = 1 M [facility] mg oral 2-19 cap, PO, l delayed 19:08: Daily, # [place] release 00 30 cap, 1 capsule Refill(s) Dexilant 60 2021-11 Yes 60 mg = 1 M [facility] mg oral 2-19 cap, PO, l delayed 19:08: Daily, # [place] release 00 30 cap, 1 capsule Refill(s) Dexilant 60 2021-11 Yes 60 mg = 1 M [facility] mg oral 2-19 cap, PO, l delayed 19:08: Daily, # [place] release 00 30 cap, 1 capsule Refill(s) Dexilant 60 2021-11 Yes 60 mg = 1 M [facility] mg oral 2-19 cap, PO, l delayed 19:08: Daily, # [place] release 00 30 cap, 1 capsule Refill(s) Dexilant 60 2021-11 Yes 60 mg = 1 M [facility] mg oral 2-19 cap, PO, l delayed 19:08: Daily, # [place] release 00 30 cap, 1 capsule Refill(s) Dexilant 60 2021-11 Yes 60 mg = 1 M [facility] mg oral 2-19 cap, PO, l delayed 19:08: Daily, # [place] release 00 30 cap, 1 capsule Refill(s) Dexilant 60 2021-11 Yes 60 mg = 1 M [facility] mg oral 2-19 cap, PO, l delayed 19:08: Daily, # [place] release 00 30 cap, 1 capsule Refill(s) Dexilant 60 2021-11 Yes 60 mg = 1 M [facility] mg oral 2-19 cap, PO, l delayed 19:08: Daily, # [place] release 00 30 cap, 1 capsule Refill(s) Dexilant 60 2021-11 Yes 60 mg = 1 M [facility] mg oral 2-19 cap, PO, l delayed 19:08: Daily, # [place] release 00 30 cap, 1 capsule Refill(s) Dexilant 60 2021-11 Yes 60 mg = 1 M [facility] mg oral 2-19 cap, PO, l delayed 19:08: Daily, # [place] release 00 30 cap, 1 capsule Refill(s) Dexilant 60 2021-11 Yes 60 mg = 1 M [facility] mg oral 2-19 cap, PO, l delayed 19:08: Daily, # [place] release 00 30 cap, 1 capsule Refill(s) Dexilant 60 2021-11 Yes 60 mg = 1 M [facility] mg oral 2-19 cap, PO, l delayed 19:08: Daily, # [place] release 00 30 cap, 1 capsule Refill(s) Dexilant 60 2021-11 Yes 60 mg = 1 M [facility] mg oral 2-19 cap, PO, l delayed 19:08: Daily, # [place] release 00 30 cap, 1 capsule Refill(s) Dexilant 60 2021-11 Yes 60 mg = 1 M [facility] mg oral 2-19 cap, PO, l delayed 19:08: Daily, # [place] release 00 30 cap, 1 capsule Refill(s) Dexilant 60 2021-11 Yes 60 mg = 1 [facility] mg oral 2-19 cap, PO, l delayed 19:08: Daily, # [place] release 00 30 cap, 1 capsule Refill(s) Dexilant 60 2021-11 Yes 60 mg = 1 M [facility] mg oral 2-19 cap, PO, l delayed 19:08: Daily, # [place] release 00 30 cap, 1 capsule Refill(s) Dexilant 60 2021-11 Yes 60 mg = 1 [facility] mg oral 2-19 cap, PO, l delayed 19:08: Daily, # [place] release 00 30 cap, 1 capsule Refill(s) temazepam 2021-11 Yes TAKE 1 [facility] 15 mg 1-15 CAPSULE BY ity of capsule 00:00: MOUTH AT [place] [address] BEDTIME Medical NEEDED FOR Branch INSOMNIA temazepam 2021-11 Yes TAKE 1 [facility] 15 mg 1-15 CAPSULE BY ity of capsule 00:00: MOUTH AT [place] [address] BEDTIME Medical NEEDED FOR Branch INSOMNIA temazepam 2021-11 Yes TAKE 1 [facility] 15 mg 1-15 CAPSULE BY ity of capsule 00:00: MOUTH AT [place] 00 BEDTIME Medical NEEDED FOR Branch INSOMNIA temazepam 2021-11 Yes TAKE 1 [facility] 15 mg 1-15 CAPSULE BY ity of capsule 00:00: MOUTH AT [place] [address] BEDTIME Medical NEEDED FOR Branch INSOMNIA SEROquel 25 2021-11 Yes See [facility] mg oral 0-14 Instructio l tablet 20:59: ns, Take 1 [place] 00 tab po 1 hour prior to MRI, may repeat q 15 min. if still anxious, # 5 tab, 0 Refill(s), Pharmacy: [facility] #[id number], 160.02, cm, 09/07/22 15:06:00 CDT, Height, 50.511, kg, 09/07/22 15:06:00 CDT, Weight SEROquel 25 2021-11 Yes See [facility] mg oral 0-14 Instructio l tablet 20:59: ns, Take 1 [place] 00 tab po 1 hour prior to MRI, may repeat q 15 min. if still anxious, # 5 tab, 0 Refill(s), Pharmacy: [facility] #[id number], 160.02, cm, 09/07/22 15:06:00 CDT, Height, 50.511, kg, 09/07/22 15:06:00 CDT, Weight SEROquel 25 2021-11 Yes See [facility] mg oral 0-14 Instructio l tablet 20:59: ns, Take 1 [place] 00 tab po 1 hour prior to MRI, may repeat q 15 min. if still anxious, # 5 tab, 0 Refill(s), Pharmacy: [facility] #[id number], 160.02, cm, 09/07/22 15:06:00 CDT, Height, 50.511, kg, 09/07/22 15:06:00 CDT, Weight SEROquel 2021-11 Yes See [facility] mg oral 0-14 Instructio l tablet 20:59: ns, Take 1 [place] 00 tab po 1 hour prior to MRI, may repeat q 15 min. if still anxious, # 5 tab, 0 Refill(s), Pharmacy: [facility] #[id number], 160.02, cm, 09/07/22 15:06:00 CDT, Height, 50.511, kg, 09/07/22 15:06:00 CDT, Weight SEROquel 25 2021-11 Yes See [facility] mg oral 0-14 Instructio l tablet 20:59: ns, Take 1 [place] 00 tab po 1 hour prior to MRI, may repeat q 15 min. if still anxious, # 5 tab, 0 Refill(s), Pharmacy: [facility] #[id number], 160.02, cm, 09/07/22 15:06:00 CDT, Height, 50.511, kg, 09/07/22 15:06:00 CDT, Weight SEROquel 25 2021-11 Yes See [facility] mg oral 0-14 Instructio l tablet 20:59: ns, Take 1 [place] 00 tab po 1 hour prior to MRI, may repeat q 15 min. if still anxious, # 5 tab, 0 Refill(s), Pharmacy: [facility] #[id number], 160.02, cm, 09/07/22 15:06:00 CDT, Height, 50.511, kg, 09/07/22 15:06:00 CDT, Weight SEROquel 25 2021-11 Yes See [facility] mg oral 0-14 Instructio l tablet 20:59: ns, Take 1 [place] 00 tab po 1 hour prior to MRI, may repeat q 15 min. if still anxious, # 5 tab, 0 Refill(s), Pharmacy: [facility] #[id number], 160.02, cm, 09/07/22 15:06:00 CDT, Height, 50.511, kg, 09/07/22 15:06:00 CDT, [facility] See [facility] mg oral 0-14 Instructio l tablet 20:59: ns, Take 1 [place] 00 tab po 1 hour prior to MRI, may repeat q 15 min. if still anxious, # 5 tab, 0 Refill(s), Pharmacy: [facility] #[id number], 160.02, cm, 09/07/22 15:06:00 CDT, Height, 50.511, kg, 09/07/22 15:06:00 CDT, Weight SEROquel 25 2021-11 Yes See [facility] mg oral 0-14 Instructio l tablet 20:59: ns, Take 1 [place] 00 tab po 1 hour prior to MRI, may repeat q 15 min. if still anxious, # 5 tab, 0 Refill(s), Pharmacy: [facility] #[id number], 160.02, cm, 09/07/22 15:06:00 CDT, Height, 50.511, kg, 09/07/22 15:06:00 CDT, Weight SEROquel 25 2021-11 Yes See [facility] mg oral 0-14 Instructio l tablet 20:59: ns, Take 1 [place] 00 tab po 1 hour prior to MRI, may repeat q 15 min. if still anxious, # 5 tab, 0 Refill(s), Pharmacy: [facility] #[id number], 160.02, cm, 09/07/22 15:06:00 CDT, Height, 50.511, kg, 09/07/22 15:06:00 CDT, Weight SEROquel 25 2021-11 Yes See [facility] mg oral 0-14 Instructio l tablet 20:59: ns, Take 1 [place] 00 tab po 1 hour prior to MRI, may repeat q 15 min. if still anxious, # 5 tab, 0 Refill(s), Pharmacy: [facility] #[id number], 160.02, cm, 09/07/22 15:06:00 CDT, Height, 50.511, kg, 09/07/22 15:06:00 CDT, Weight SEROquel 2021-11 Yes See [facility] mg oral 0-14 Instructio l tablet 20:59: ns, Take 1 [place] 00 tab po 1 hour prior to MRI, may repeat q 15 min. if still anxious, # 5 tab, 0 Refill(s), Pharmacy: [facility] #[id number], 160.02, cm, 09/07/22 15:06:00 CDT, Height, 50.511, kg, 09/07/22 15:06:00 CDT, Weight SEROquel 2021-11 Yes See [facility] mg oral 0-14 Instructio l tablet 20:59: ns, Take 1 [place] 00 tab po 1 hour prior to MRI, may repeat q 15 min. if still anxious, # 5 tab, 0 Refill(s), Pharmacy: [facility] #[id number], 160.02, cm, 09/07/22 15:06:00 CDT, Height, 50.511, kg, 09/07/22 15:06:00 CDT, Weight SEROquel 25 2021-11 Yes See [facility] mg oral 0-14 Instructio l tablet 20:59: ns, Take 1 [place] 00 tab po 1 hour prior to MRI, may repeat q 15 min. if still anxious, # 5 tab, 0 Refill(s), Pharmacy: [facility] #[id number], 160.02, cm, 09/07/22 15:06:00 CDT, Height, 50.511, kg, 09/07/22 15:06:00 CDT, Weight SEROquel 25 2021-11 Yes See [facility] a mg oral 0-14 Instructio l tablet 20:59: ns, Take 1 Mary nn 00 tab po 1 hour prior to MRI, may repeat q 15 min. if still anxious, # 5 tab, 0 Refill(s), Pharmacy: [facility] #[id number], 160.02, cm, 09/07/22 15:06:00 CDT, Height, 50.511, kg, 09/07/22 15:06:00 CDT, [facility] Yes See [facility] a mg oral 0-14 Instructio l tablet 20:59: ns, Take 1 Mary nn 00 tab po 1 hour prior to MRI, may repeat q 15 min. if still anxious, # 5 tab, 0 Refill(s), Pharmacy: [facility] #[id number], 160.02, cm, 09/07/22 15:06:00 CDT, Height, 50.511, kg, 09/07/22 15:06:00 CDT, [facility] Yes See [facility] a mg oral 0-14 Instructio l tablet 20:59: ns, Take 1 Mary nn 00 tab po 1 hour prior to MRI, may repeat q 15 min. if still anxious, # 5 tab, 0 Refill(s), Pharmacy: [facility] #[id number], 160.02, cm, 09/07/22 15:06:00 CDT, Height, 50.511, kg, 09/07/22 15:06:00 CDT, [facility] Yes See [facility] a mg oral 0-14 Instructio l tablet 20:59: ns, Take 1 Mary nn 00 tab po 1 hour prior to MRI, may repeat q 15 min. if still anxious, # 5 tab, 0 Refill(s), [facility]acy: [facility] #[id number], 160.02, cm, 09/07/22 15:06:00 CDT, Height, 50.511, kg, 09/07/22 15:06:00 CDT, Weight SEROquel 25 2021-11 Yes See Memori a mg oral 0-14 Instructio l tablet 20:59: ns, Take 1 Mary nn 00 tab po 1 hour prior to MRI, may repeat q 15 min. if still anxious, # 5 tab, 0 Refill(s), Pharmacy: [facility] #[id number], 160.02, cm, 09/07/22 15:06:00 CDT, Height, 50.511, kg, 09/07/22 15:06:00 CDT, Weight SEROquel 25 2021-11 Yes See Memori a mg oral 0-14 Instructio l tablet 20:59: ns, Take 1 Mary nn 00 tab po 1 hour prior to MRI, may repeat q 15 min. if still anxious, # 5 tab, 0 Refill(s), Pharmacy: [facility] #[id number], 160.02, cm, 09/07/22 15:06:00 CDT, Height, 50.511, kg, 09/07/22 15:06:00 CDT, [facility] Yes See Memori a mg oral 0-14 Instructio l tablet 20:59: ns, Take 1 Mary nn 00 tab po 1 hour prior to MRI, may repeat q 15 min. if still anxious, # 5 tab, 0 Refill(s), Pharmacy: [facility] #[id number], 160.02, cm, 09/07/22 15:06:00 CDT, Height, 50.511, kg, 09/07/22 15:06:00 CDT, [facility] Yes See Memori a mg oral 0-14 Instructio l tablet 20:59: ns, Take 1 Mary nn 00 tab po 1 hour prior to MRI, may repeat q 15 min. if still anxious, # 5 tab, 0 Refill(s), Pharmacy: [facility] #[id number], 160.02, cm, 09/07/22 15:06:00 CDT, Height, 50.511, kg, 09/07/22 15:06:00 CDT, Weight SEROquel 25 2021-11 Yes See Memori a mg oral 0-14 Instructio l tablet 20:59: ns, Take 1 Mary nn 00 tab po 1 hour prior to MRI, may repeat q 15 min. if still anxious, # 5 tab, 0 Refill(s), Pharmacy: [facility] #[id number], 160.02, cm, 09/07/22 15:06:00 CDT, Height, 50.511, kg, 09/07/22 15:06:00 CDT, Weight SEROque 2021-11 Yes See Memori a mg oral 0-14 Instructio l tablet 20:59: ns, Take 1 Mary nn 00 tab po 1 hour prior to MRI, may repeat q 15 min. if still anxious, # 5 tab, 0 Refill(s), Pharmacy: [facility] #[id number], 160.02, cm, 09/07/22 15:06:00 CDT, Height, 50.511, kg, 09/07/22 15:06:00 CDT, [facility] 2021-11 Yes See Memori a mg oral 0-14 Instructio l tablet 20:59: ns, Take 1 Mary nn 00 tab po 1 hour prior to MRI, may repeat q 15 min. if still anxious, # 5 tab, 0 Refill(s), Pharmacy: [facility] #[id number], 160.02, cm, 09/07/22 15:06:00 CDT, Height, 50.511, kg, 09/07/22 15:06:00 CDT, Weight SEROquel 2021-11 Yes See Memori a mg oral 0-14 Instructio l tablet 20:59: ns, Take 1 Mary nn 00 tab po 1 hour prior to MRI, may repeat q 15 min. if still anxious, # 5 tab, 0 Refill(s), Pharmacy: [facility] #[id number], 160.02, cm, 09/07/22 15:06:00 CDT, Height, 50.511, kg, 09/07/22 15:06:00 CDT, Weight SEROquel 25 2021-11 Yes See Memori a mg oral 0-14 Instructio l tablet 20:59: ns, Take 1 Mary nn 00 tab po 1 hour prior to MRI, may repeat q 15 min. if still anxious, # 5 tab, 0 Refill(s), Pharmacy: [facility] #[id number], 160.02, cm, 09/07/22 15:06:00 CDT, Height, 50.511, kg, 09/07/22 15:06:00 CDT, [place] [id number] 2021-11 Yes See Memori a mg oral 0-14 Instructio l tablet 20:59: ns, Take 1 Mary nn 00 tab po 1 hour prior to MRI, may repeat q 15 min. if still anxious, # 5 tab, 0 Refill(s), Pharmacy: [facility] #[id number], 160.02, cm, 09/07/22 15:06:00 CDT, Height, 50.511, kg, 09/07/22 15:06:00 CDT, [place] [address] 2021-11 Yes See Memori a mg oral 0-14 Instructio l tablet 20:59: ns, Take 1 Mary nn 00 tab po 1 hour prior to MRI, may repeat q 15 min. if still anxious, # 5 tab, 0 Refill(s), Pharmacy: [facility] #[id number], 160.02, cm, 09/07/22 15:06:00 CDT, Height, 50.511, kg, 09/07/22 15:06:00 CDT, [place] [address] 2021-11 Yes See Memori a mg oral 0-14 Instructio l tablet 20:59: ns, Take 1 Mary nn 00 tab po 1 hour prior to MRI, may repeat q 15 min. if still anxious, # 5 tab, 0 Refill(s), Pharmacy: [facility] #[id number], 160.02, cm, 09/07/22 15:06:00 CDT, Height, 50.511, kg, 09/07/22 15:06:00 CDT, [place] [address] 2021-11 Yes See Memori a mg oral 0-14 Instructio l tablet 20:59: ns, Take 1 Mary nn 00 tab po 1 hour prior to MRI, may repeat q 15 min. if still anxious, # 5 tab, 0 Refill(s), Pharmacy: [facility] #[id number], 160.02, cm, 09/07/22 15:06:00 CDT, Height, 50.511, kg, 09/07/22 15:06:00 CDT, Weight SEROquel 25 2021-11 Yes See Memori a mg oral 0-14 Instructio l tablet 20:59: ns, Take 1 Mary nn 00 tab po 1 hour prior to MRI, may repeat q 15 min. if still anxious, # 5 tab, 0 Refill(s), Pharmacy: [facility] #[id number], 160.02, cm, 09/07/22 15:06:00 CDT, Height, 50.511, kg, 09/07/22 15:06:00 CDT, Weight SEROquel 25 2021-11 Yes See Memori a mg oral 0-14 Instructio l tablet 20:59: ns, Take 1 Mary nn 00 tab po 1 hour prior to MRI, may repeat q 15 min. if still anxious, # 5 tab, 0 Refill(s), Pharmacy: [facility] #[id number], 160.02, cm, 09/07/22 15:06:00 CDT, Height, 50.511, kg, 09/07/22 15:06:00 CDT, Weight SEROquel 25 2021-11 Yes See Memori a mg oral 0-14 Instructio l tablet 20:59: ns, Take 1 Mary nn 00 tab po 1 hour prior to MRI, may repeat q 15 min. if still anxious, # 5 tab, 0 Refill(s), Pharmacy: [facility] #[id number], 160.02, cm, 09/07/22 15:06:00 CDT, Height, 50.511, kg, 09/07/22 15:06:00 CDT, Weight SEROquel 25 2021-11 Yes See Memori a mg oral 0-14 Instructio l tablet 20:59: ns, Take 1 Mary nn 00 tab po 1 hour prior to MRI, may repeat q 15 min. if still anxious, # 5 tab, 0 Refill(s), Pharmacy: [facility] #[id number], 160.02, cm, 09/07/22 15:06:00 CDT, Height, 50.511, kg, 09/07/22 15:06:00 CDT, Weight SEROquel 25 2021-11 Yes See Memori a mg oral 0-14 Instructio l tablet 20:59: ns, Take 1 Mary nn 00 tab po 1 hour prior to MRI, may repeat q 15 min. if still anxious, # 5 tab, 0 Refill(s), Pharmacy: [facility] #[id number], 160.02, cm, 09/07/22 15:06:00 CDT, Height, 50.511, kg, 09/07/22 15:06:00 CDT, Weight Pitavastati Yes Livalo 2 Un malia n (LIVALO) 9-16 mg tablet ity of 2 mg Tab 10:00: Take 1 [place] 41 tablet Medical every day Branch by oral route. proMETHazin Yes promethazi [facility] 25 mg 9-16 ne 25 mg ity of tablet 10:00: tablet [place] 41 Take 1 Medical tablet Branch every 4 hours by oral route as needed. propranolol Yes 1{tbl} Take 1 Un malia -hydrochlor 9-16 tablet by ity of othiazide 10:00: mouth. [place] 40-25 mg 41 Medical per tablet Branch sucralfate Yes 1g Take 1 g Uni vers 1 gram 9-16 by mouth. ity of tablet 10:00: [address] topiramate Yes 25mg Take 25 mg U nivers 25 mg 9-16 by mouth. ity of tablet 10:00: [address] vortioxetin Yes Trintellix [facility] 9-16 10 mg ity of (TRINTELLIX 10:00: [place] 10 mg Tab 41 TAKE 1 Medica l TABLET BY Branch MOUTH ONCE DAILY zolpidem 5 Yes zolpidem 5 U nivers mg tablet 9-16 mg tablet ity o f 10:00: Take 1 [place] 41 tablet Medical every day Branch by oral route. Pitavastati Yes Livalo 2 Un malia n (LIVALO) 9-16 mg tablet ity of 2 mg Tab 10:00: Take 1 [place] 41 tablet Medical every day Branch by oral route. proMETHazin Yes promethazi [facility] 25 mg 9-16 ne 25 mg ity of tablet 10:00: tablet [place] 41 Take 1 Medical tablet Branch every 4 hours by oral route as needed. propranolol Yes 1{tbl} Take 1 Un malia -hydrochlor 9-16 tablet by ity of othiazide 10:00: mouth. [place] 40-25 mg 41 Medical per tablet Branch sucralfate Yes 1g Take 1 g Uni vers 1 gram 9-16 by mouth. ity of tablet 10:00: [place] [address] Medical Branch topiramate Yes 25mg Take 25 mg U nivers 25 mg 9-16 by mouth. ity of tablet 10:00: [address] vortioxetin Yes Trintellix [facility] 9-16 10 mg ity of (TRINTELLIX 10:[place]: [place] 10 mg Tab 41 TAKE 1 Medica l TABLET BY Branch MOUTH ONCE DAILY zolpidem 5 Yes zolpidem 5 U nivers mg tablet 9-16 mg tablet ity o f 10:00: Take 1 [place] 41 tablet Medical every day Branch by oral route. Pitavastati Yes Livalo 2 Un malia n (LIVALO) 9-16 mg tablet ity of 2 mg Tab 10:00: Take 1 [place] 41 tablet Medical every day Branch by oral route. proMETHazin Yes promethazi [facility] 25 mg 9-16 ne 25 mg ity of tablet 10:00: tablet 41 Take 1 Medical tablet Branch every 4 hours by oral route as needed. propranolol Yes 1{tbl} Take 1 Un mal[facility] -hydrochlor 9-16 tablet by ity of othiazide 10:00: mouth. [place] 40-25 mg 41 Medical per tablet Branch sucralfate Yes 1g Take 1 g Uni vers 1 gram 9-16 by mouth. ity of tablet 10:00: [place] [address] Medical Branch topiramate Yes 25mg Take 25 mg U nivers 25 mg 9-16 by mouth. ity of tablet 10:00: [place] [address] Medical Branch vortioxetin Yes Trintellix [facility] 9-16 10 mg ity of (TRINTELLIX 10:00: [place] 10 mg Tab 41 TAKE 1 Medica l TABLET BY Branch MOUTH ONCE DAILY zolpidem 5 Yes zolpidem 5 U nivers mg tablet 9-16 mg tablet ity o f 10:00: Take 1 [place] 41 tablet Medical every day Branch by oral route. amLODIPine 0 Yes 5mg Take 5 mg Un malia 5 mg tablet 9-16 by mouth. ity of 10:00: [address] aspirin 81 0 Yes aspirin 81 U nivers mg EC 9-16 mg ity of tablet 10:00: tablet,del [place] 40 ayed Medical release Branch Take 1 tablet every day by oral route. enalapril Yes 1{tbl} Take 1 Univ ers 20 mg 9-16 tablet by ity of tablet 10:00: mouth [place] 40 every Medical morning. Branch hydrOXYzine Yes 25mg Take 25 mg Univers 25 mg 9-16 by mouth. ity of tablet 10:00: [address] lactulose Yes 30mL 30 mL. Univer s 10 gram/15 -16 ity of mL solution 10:00: [address] levoFLOXaci Yes Levaquin Un malia n 9-16 500 mg ity of (LEVAQUIN) 10:00: tablet [place] 500 mg 40 Take 1 Medical tablet tablet Branch every 24 hours by oral route. lidocaine 5 Yes lidocaine U nivers % (700 9-16 5 % ity of mg/patch) 10:00: topical [place] patch 40 patch Medical APPLY 1 Branch PATCH BY TRANSDERMA L ROUTE ONCE DAILY (MAY WEAR UP TO 12HOURS.) lisinopriL Yes lisinopril U nivers 5 mg tablet 9-16 5 mg ity of 10:00: tablet [place] 40 Take 1 Medical tablet Branch every day by oral route. morphine ER Yes MS Contin U nivers (MS CONTIN) 9-16 15 mg ity of 15 mg 12 hr 10:00: tablet,ext [place] tablet 40 ended Medical release Branch Take 1 tablet every 8 hours by oral route. ondansetron Yes 4mg Take 4 mg U nivers 4 mg 9-16 by mouth. ity of disintegrat 10:00: [place] ing tablet 40 Medical Branch Oxycodone Yes oxycodone Uni vers 10 mg Tab 9-16 10 mg ity of 10:00: tablet [place] 40 Take 1 Medical tablet Branch every 6 hours by oral route. amLODIPine 0 Yes 5mg Take 5 mg Un malia 5 mg tablet 9-16 by mouth. ity of 10:00: [place] [address] Medical Branch aspirin 81 2021-0 Yes aspirin 81 U nivers mg EC 9-16 mg ity of tablet 10:00: tablet,del [place] 40 ayed Medical release Branch Take 1 tablet every day by oral route. enalapril 0 Yes 1{tbl} Take 1 Univ ers 20 mg 9-16 tablet by ity of tablet 10:00: mouth [place] 40 every Medical morning. Branch hydrOXYzine 0 Yes 25mg Take 25 mg Univers 25 mg 9-16 by mouth. ity of tablet 10:00: [place] [address] Medical Branch lactulose 0 Yes 30mL 30 mL. Univer s 10 gram/15 9-16 ity of mL solution 10:00: [address] levoFLOXaci Yes Levaquin Un malia n 9-16 500 mg ity of (LEVAQUIN) 10:00: tablet [place] 500 mg 40 Take 1 Medical tablet tablet Branch every 24 hours by oral route. lidocaine 5 Yes lidocaine U nivers % (700 9-16 5 % ity of mg/patch) 10:00: topical [place] patch 40 patch Medical APPLY 1 Branch PATCH BY TRANSDERMA L ROUTE ONCE DAILY (MAY WEAR UP TO 12HOURS.) lisinopriL 0 Yes lisinopril U nivers 5 mg tablet 9-16 5 mg ity of 10:00: tablet [place] 40 Take 1 Medical tablet Branch every day by oral route. morphine ER 0 Yes MS Contin U nivers (MS CONTIN) 9-16 15 mg ity of 15 mg 12 hr 10:00: tablet,ext [place] tablet 40 ended Medical release Branch Take 1 tablet every 8 hours by oral route. ondansetron 0 Yes 4mg Take 4 mg U nivers 4 mg 9-16 by mouth. ity of disintegrat 10:00: [place] ing tablet 40 Medical Branch Oxycodone 0 Yes oxycodone Uni vers 10 mg Tab 9-16 10 mg ity of 10:00: tablet [place] 40 Take 1 Medical tablet Branch every 6 hours by oral route. amLODIPine Yes 5mg Take 5 mg Un malia 5 mg tablet 9-16 by mouth. ity of 10:00: [place] [address] Medical Branch aspirin 81 0 Yes aspirin 81 U nivers mg EC 9-16 mg ity of tablet 10:00: tablet,del [place] 40 ayed Medical release Branch Take 1 tablet every day by oral route. enalapril 0 Yes 1{tbl} Take 1 Univ ers 20 mg 9-16 tablet by ity of tablet 10:00: mouth [place] 40 every Medical morning. Branch hydrOXYzine Yes 25mg Take 25 mg Univers 25 mg 9-16 by mouth. ity of tablet 10:00: [place] [address] Medical Branch lactulose Yes 30mL 30 mL. Univer s 10 gram/15 9-16 ity of mL solution 10:00: [address] levoFLOXaci Yes Levaquin Un malia n 9-16 500 mg ity of (LEVAQUIN) 10:00: tablet [place] 500 mg 40 Take 1 Medical tablet tablet Branch every 24 hours by oral route. lidocaine 5 Yes lidocaine U nivers % (700 9-16 5 % ity of mg/patch) 10:00: topical [place] patch 40 patch Medical APPLY 1 Branch PATCH BY TRANSDERMA L ROUTE ONCE DAILY (MAY WEAR UP TO 12HOURS.) lisinopriL Yes lisinopril U nivers 5 mg tablet 9-16 5 mg ity of 10:00: tablet [place] 40 Take 1 Medical tablet Branch every day by oral route. morphine ER Yes MS Contin U nivers (MS CONTIN) 9-16 15 mg ity of 15 mg 12 hr 10:00: tablet,ext [place] tablet 40 ended Medical release Branch Take 1 tablet every 8 hours by oral route. ondansetron Yes 4mg Take 4 mg U nivers 4 mg 9-16 by mouth. ity of disintegrat 10:00: [place] ing tablet 40 Medical Branch Oxycodone Yes oxycodone Uni vers 10 mg Tab 9-16 10 mg ity of 10:00: tablet [place] 40 Take 1 Medical tablet Branch every 6 hours by oral route. 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, Weight topiramate 2021-0 Yes = 1 tab, Mem oria 50 mg oral 9-13 PO, BID, # l tablet 14:16: 180 tab, 1 Mary nn 00 Refill(s), [id number], 160.02, cm, 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, Height, 50.455, kg, 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, Weight topiramate 2021-0 Yes = 1 tab, Mem oria 50 mg oral 9-13 PO, BID, # l tablet 14:16: 180 tab, 1 Mary nn 00 Refill(s), [id number], 160.02, cm, 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, Height, 50.455, kg, 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, Weight topiramate 2021-0 Yes = 1 tab, Mem oria 50 mg oral 9-13 PO, BID, # l tablet 14:16: 180 tab, 1 Mary nn 00 Refill(s), [id number], 160.02, cm, 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, Height, 50.455, kg, 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, Weight topiramate 2021-0 Yes = 1 tab, Mem oria 50 mg oral 9-13 PO, BID, # l tablet 14:16: 180 tab, 1 Mary nn 00 Refill(s), Pharmacy: [facility] #[id number], 160.02, cm, 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, Height, 50.455, kg, 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, Weight topiramate 2-0 Yes = 1 tab, Mem oria 50 mg oral 9-13 PO, BID, # l tablet 14:16: 180 tab, 1 Mary nn 00 Refill(s), Pharmacy: [facility] #[id number], 160.02, cm, 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, Height, 50.455, kg, 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, Weight topiramate 2021-0 Yes = 1 tab, Mem oria 50 mg oral 9-13 PO, BID, # l tablet 14:16: 180 tab, 1 Mary nn 00 Refill(s), Pharmacy: [facility] #[id number], 160.02, cm, 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, Height, 50.455, kg, 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, Weight topiramate 2021-0 Yes = 1 tab, Mem oria 50 mg oral 9-13 PO, BID, # l tablet 14:16: 180 tab, 1 Mary nn 00 Refill(s), Pharmacy: [facility] #[id number], 160.02, cm, 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, Height, 50.455, kg, 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, Weight topiramate 2021-0 Yes = 1 tab, Mem oria 50 mg oral 9-13 PO, BID, # l tablet 14:16: 180 tab, 1 Mary nn 00 Refill(s), Pharmacy: [facility] #[id number], 160.02, cm, 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, Height, 50.455, kg, 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, Weight topiramate 2-0 Yes = 1 tab, Mem oria 50 mg oral 9-13 PO, BID, # l tablet 14:16: 180 tab, 1 Mary nn 00 Refill(s), [facility][id number], 160.02, cm, 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, Height, 50.455, kg, 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, Weight topiramate 2022-0 Yes = 1 tab, Mem oria 50 mg oral 9-13 PO, BID, # l tablet 14:16: 180 tab, 1 Mary nn 00 Refill(s), [facility][id number], 160.02, cm, 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, Height, 50.455, kg, 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, Weight topiramate 2021-0 Yes = 1 tab, Mem oria 50 mg oral 9-13 PO, BID, # l tablet 14:16: 180 tab, 1 Mary nn 00 Refill(s), [facility] #[id number], 160.02, cm, 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, Height, 50.455, kg, 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, Weight topiramate 2021-0 Yes = 1 tab, Mem oria 50 mg oral 9-13 PO, BID, # l tablet 14:16: 180 tab, 1 Mary nn 00 Refill(s), [facility] #[id number], 160.02, cm, 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, Height, 50.455, kg, 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, Weight topiramate 2021-0 Yes = 1 tab, Mem oria 50 mg oral 9-13 PO, BID, # l tablet 14:16: 180 tab, 1 Mary nn 00 Refill(s), [id number], 160.02, cm, 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, Height, 50.455, kg, 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, Weight topiramate 2022-0 Yes = 1 tab, Mem oria 50 mg oral 9-13 PO, BID, # l tablet 14:16: 180 tab, 1 Mary nn 00 Refill(s), Pharmacy: [facility] #[id number], 160.02, cm, 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, Height, 50.455, kg, 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, Weight topiramate 2021-0 Yes = 1 tab, Mem oria 50 mg oral 9-13 PO, BID, # l tablet 14:16: 180 tab, 1 Mary nn 00 Refill(s), [facility][id number], 160.02, cm, 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, Height, 50.455, kg, 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, Weight topiramate 2021-0 Yes = 1 tab, Mem oria 50 mg oral 9-13 PO, BID, # l tablet 14:16: 180 tab, 1 Mary nn 00 Refill(s), [facility] #[id number], 160.02, cm, 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, Height, 50.455, kg, 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, Weight topiramate 2021-0 Yes = 1 tab, Mem oria 50 mg oral 9-13 PO, BID, # l tablet 14:16: 180 tab, 1 Mary nn 00 Refill(s), [facility][id number], 160.02, cm, 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, Height, 50.455, kg, 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, Weight topiramate 2021-0 Yes = 1 tab, Mem oria 50 mg oral 9-13 PO, BID, # l tablet 14:16: 180 tab, 1 Mary nn 00 Refill(s), [facility] #[id number], 160.02, cm, 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, Height, 50.455, kg, 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, Weight topiramate 2021-0 Yes = 1 tab, Mem oria 50 mg oral 9-13 PO, BID, # l tablet 14:16: 180 tab, 1 Mary nn 00 Refill(s), [facility][id number], 160.02, cm, 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, Height, 50.455, kg, 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, Weight topiramate 2021-0 Yes = 1 tab, Mem oria 50 mg oral 9-13 PO, BID, # l tablet 14:16: 180 tab, 1 Mary nn 00 Refill(s), [facility] #[id number], 160.02, cm, 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, Height, 50.455, kg, 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, Weight topiramate 2021-0 Yes = 1 tab, Mem oria 50 mg oral 9-13 PO, BID, # l tablet 14:16: 180 tab, 1 Mary nn 00 Refill(s), [facility] #[id number], 160.02, cm, 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, Height, 50.455, kg, 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, Weight topiramate 2021-0 Yes = 1 tab, Mem oria 50 mg oral 9-13 PO, BID, # l tablet 14:16: 180 tab, 1 Mary nn 00 Refill(s), [facility][id number], 160.02, cm, 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, Height, 50.455, kg, 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, Weight topiramate 2021-0 Yes = 1 tab, Mem oria 50 mg oral 9-13 PO, BID, # l tablet 14:16: 180 tab, 1 Mary nn 00 Refill(s), [facility] #[id number], 160.02, cm, 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, Height, 50.455, kg, 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, Weight topiramate 2021-0 Yes = 1 tab, Mem oria 50 mg oral 9-13 PO, BID, # l tablet 14:16: 180 tab, 1 Mary nn 00 Refill(s), [facility][id number], 160.02, cm, 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, Height, 50.455, kg, 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, Weight topiramate 2021-0 Yes = 1 tab, Mem oria 50 mg oral 9-13 PO, BID, # l tablet 14:16: 180 tab, 1 Mary nn 00 Refill(s), [facility][id number], 160.02, cm, 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, Height, 50.455, kg, 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, Weight topiramate 2021-0 Yes = 1 tab, Mem oria 50 mg oral 9-13 PO, BID, # l tablet 14:16: 180 tab, 1 Mary nn 00 Refill(s), [id number], 160.02, cm, 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, Height, 50.455, kg, 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, Weight topiramate 2021-0 Yes = 1 tab, Mem oria 50 mg oral 9-13 PO, BID, # l tablet 14:16: 180 tab, 1 Mary nn 00 Refill(s), [facility][id number], 160.02, cm, 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, Height, 50.455, kg, 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, Weight topiramate 2021-0 Yes = 1 tab, Mem oria 50 mg oral 9-13 PO, BID, # l tablet 14:16: 180 tab, 1 Mary nn 00 Refill(s), [facility][id number], 160.02, cm, 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, Height, 50.455, kg, 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, Weight topiramate 2021-0 Yes = 1 tab, Mem oria 50 mg oral 9-13 PO, BID, # l tablet 14:16: 180 tab, 1 Mary nn 00 Refill(s), Pharmacy: [facility] #[id number], 160.02, cm, 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, Height, 50.455, kg, 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, Weight topiramate 2021-0 Yes = 1 tab, Mem oria 50 mg oral 9-13 PO, BID, # l tablet 14:16: 180 tab, 1 Mary nn 00 Refill(s), Pharmacy: [facility] #[id number], 160.02, cm, 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, Height, 50.455, kg, 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, Weight topiramate 2021-0 Yes = 1 tab, Mem oria 50 mg oral 9-13 PO, BID, # l tablet 14:16: 180 tab, 1 Mary nn 00 Refill(s), Pharmacy: [facility] #[id number], 160.02, cm, 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, Height, 50.455, kg, 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, Weight topiramate 2021-0 Yes = 1 tab, Mem oria 50 mg oral 9-13 PO, BID, # l tablet 14:16: 180 tab, 1 Mary nn 00 Refill(s), Pharmacy: [facility] #[id number], 160.02, cm, 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, Height, 50.455, kg, 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, Weight topiramate 2021-0 Yes = 1 tab, Mem oria 50 mg oral 9-13 PO, BID, # l tablet 14:16: 180 tab, 1 Mary nn 00 Refill(s), [id number], 160.02, cm, 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, Height, 50.455, kg, 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, Weight topiramate 2021-0 Yes = 1 tab, Mem oria 50 mg oral 9-13 PO, BID, # l tablet 14:16: 180 tab, 1 Mary nn 00 Refill(s), [id number], 160.02, cm, 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, Height, 50.455, kg, 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, Weight topiramate 2021-0 Yes = 1 tab, Mem oria 50 mg oral 9-13 PO, BID, # l tablet 14:16: 180 tab, 1 [place] nn 00 Refill(s), [id number], 160.02, cm, 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, Height, 50.455, kg, 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, Weight methocarbam 2021-0 Yes Univer s oL 500 mg 9-06 ity of tablet 00:00: [address] methocarbam 2-0 Yes Univer s oL 500 mg 9-06 ity of tablet 00:00: [place] [facility] methocarbam 2-0 Yes Univer s oL 500 mg 9-06 ity of tablet 00:00: [address] methocarbam 2021-0 Yes Univer s oL 500 mg 9-06 ity of tablet 00:00: [address] methocarbam 2021-0 Yes Univer s oL 500 mg 9-06 ity of tablet 00:00: [place] [facility] topiramate 2021-0 Yes = 1 tab, Mem oria 25 mg oral 8-24 PO, l tablet 21:39: Bedtime, # Mary nn 00 30 tab, 4 Refill(s), [id number], 160.02, cm, 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, Height, 50.455, kg, 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, Weight topiramate 2021-0 Yes = 1 tab, Mem oria 25 mg oral 8-24 PO, l tablet 21:39: Bedtime, # [place] 00 30 tab, 4 Refill(s), [id number], 160.02, cm, 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, Height, 50.455, kg, 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, Weight topiramate 2021-0 Yes = 1 tab, Mem oria 25 mg oral 8-24 PO, l tablet 21:39: Bedtime, # [place] 00 30 tab, 4 Refill(s), Pharmacy: [facility] #[id number], 160.02, cm, 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, Height, 50.455, kg, 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, Weight topiramate 2021-0 Yes = 1 tab, Mem oria 25 mg oral 8-24 PO, l tablet 21:39: Bedtime, # [place] 00 30 tab, 4 Refill(s), [id number], 160.02, cm, 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, Height, 50.455, kg, 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, Weight topiramate 2021-0 Yes = 1 tab, Mem oria 25 mg oral 8-24 PO, l tablet 21:39: Bedtime, # [place] 00 30 tab, 4 Refill(s), [facility][id number], 160.02, cm, 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, Height, 50.455, kg, 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, Weight topiramate 2021-0 Yes = 1 tab, Mem oria 25 mg oral 8-24 PO, l tablet 21:39: Bedtime, # [place] 00 30 tab, 4 Refill(s), [id number], 160.02, cm, 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, Height, 50.455, kg, 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, Weight topiramate 2021-0 Yes = 1 tab, Mem oria 25 mg oral 8-24 PO, l tablet 21:39: Bedtime, # [place] 00 30 tab, 4 Refill(s), [id number], 160.02, cm, 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, Height, 50.455, kg, 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, Weight topiramate 2021-0 Yes = 1 tab, Mem oria 25 mg oral 8-24 PO, l tablet 21:39: Bedtime, # [place] 00 30 tab, 4 Refill(s), Pharmacy: [facility] #[id number], 160.02, cm, 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, Height, 50.455, kg, 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, Weight topiramate 2021-0 Yes = 1 tab, Mem oria 25 mg oral 8-24 PO, l tablet 21:39: Bedtime, # [place] 00 30 tab, 4 Refill(s), Pharmacy: [facility] #[id number], 160.02, cm, 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, Height, 50.455, kg, 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, Weight topiramate 2021-0 Yes = 1 tab, Mem oria 25 mg oral 8-24 PO, l tablet 21:39: Bedtime, # [place] 00 30 tab, 4 Refill(s), Pharmacy: [facility] #[id number], 160.02, cm, 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, Height, 50.455, kg, 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, Weight topiramate 2021-0 Yes = 1 tab, Mem oria 25 mg oral 8-24 PO, l tablet 21:39: Bedtime, # [place] 00 30 tab, 4 Refill(s), Pharmacy: [facility] #[id number], 160.02, cm, 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, Height, 50.455, kg, 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, Weight topiramate 2021-0 Yes = 1 tab, Mem oria 25 mg oral 8-24 PO, l tablet 21:39: Bedtime, # [place] 00 30 tab, 4 Refill(s), Pharmacy: [facility] #[id number], 160.02, cm, 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, Height, 50.455, kg, 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, Weight topiramate 2021-0 Yes = 1 tab, Mem oria 25 mg oral 8-24 PO, l tablet 21:39: Bedtime, # [place] 00 30 tab, 4 Refill(s), Pharmacy: [facility] #[id number], 160.02, cm, 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, Height, 50.455, kg, 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, Weight topiramate 2021-0 Yes = 1 tab, Mem oria 25 mg oral 8-24 PO, l tablet 21:39: Bedtime, # [place] nn 00 30 tab, 4 Refill(s), [id number], 160.02, cm, 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, Height, 50.455, kg, 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, Weight topiramate 2021-0 Yes = 1 tab, Mem oria 25 mg oral 8-24 PO, l tablet 21:39: Bedtime, # [place] 00 30 tab, 4 Refill(s), [facility][id number], 160.02, cm, 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, Height, 50.455, kg, 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, Weight topiramate 2021-0 Yes = 1 tab, Mem oria 25 mg oral 8-24 PO, l tablet 21:39: Bedtime, # [place] 00 30 tab, 4 Refill(s), [facility][id number], 160.02, cm, 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, Height, 50.455, kg, 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, Weight topiramate 2021-0 Yes = 1 tab, Mem oria 25 mg oral 8-24 PO, l tablet 21:39: Bedtime, # [place] nn 00 30 tab, 4 Refill(s), [id number], 160.02, cm, 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, Height, 50.455, kg, 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, Weight topiramate 2021-0 Yes = 1 tab, Mem oria 25 mg oral 8-24 PO, l tablet 21:39: Bedtime, # [place] nn 00 30 tab, 4 Refill(s), [facility][id number], 160.02, cm, 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, Height, 50.455, kg, 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, Weight topiramate 2021-0 Yes = 1 tab, Mem oria 25 mg oral 8-24 PO, l tablet 21:39: Bedtime, # [place] nn 00 30 tab, 4 Refill(s), [facility][id number], 160.02, cm, 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, Height, 50.455, kg, 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, Weight topiramate 2021-0 Yes = 1 tab, Mem oria 25 mg oral 8-24 PO, l tablet 21:39: Bedtime, # [place] nn 00 30 tab, 4 Refill(s), [facility][id number], 160.02, cm, 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, Height, 50.455, kg, 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, Weight topiramate 2021-0 Yes = 1 tab, Mem oria 25 mg oral 8-24 PO, l tablet 21:39: Bedtime, # Mary nn 00 30 tab, 4 Refill(s), [facility] #[id number], 160.02, cm, 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, Height, 50.455, kg, 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, Weight topiramate 2021-0 Yes = 1 tab, Mem oria 25 mg oral 8-24 PO, l tablet 21:39: Bedtime, # [place] nn 00 30 tab, 4 Refill(s), [facility][id number], 160.02, cm, 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, Height, 50.455, kg, 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, Weight topiramate 2021-0 Yes = 1 tab, Mem oria 25 mg oral 8-24 PO, l tablet 21:39: Bedtime, # [place] nn 00 30 tab, 4 Refill(s), Pharmacy: [facility] #[id number], 160.02, cm, 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, Height, 50.455, kg, 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, Weight topiramate 2021-0 Yes = 1 tab, Mem oria 25 mg oral 8-24 PO, l tablet 21:39: Bedtime, # Mary nn 00 30 tab, 4 Refill(s), [facility][id number], 160.02, cm, 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, Height, 50.455, kg, 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, Weight topiramate 2021-0 Yes = 1 tab, Mem oria 25 mg oral 8-24 PO, l tablet 21:39: Bedtime, # Mary nn 00 30 tab, 4 Refill(s), [facility][id number], 160.02, cm, 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, Height, 50.455, kg, 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, Weight topiramate 2021-0 Yes = 1 tab, Mem oria 25 mg oral 8-24 PO, l tablet 21:39: Bedtime, # Mary nn 00 30 tab, 4 Refill(s), [facility][id number], 160.02, cm, 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, Height, 50.455, kg, 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, Weight topiramate 2021-0 Yes = 1 tab, Mem oria 25 mg oral 8-24 PO, l tablet 21:39: Bedtime, # Mary nn 00 30 tab, 4 Refill(s), [facility][id number], 160.02, cm, 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, Height, 50.455, kg, 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, Weight topiramate 2021-0 Yes = 1 tab, Mem oria 25 mg oral 8-24 PO, l tablet 21:39: Bedtime, # Mary nn 00 30 tab, 4 Refill(s), [facility][id number], 160.02, cm, 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, Height, 50.455, kg, 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, Weight topiramate 2021-0 Yes = 1 tab, Mem oria 25 mg oral 8-24 PO, l tablet 21:39: Bedtime, # Mary nn 00 30 tab, 4 Refill(s), [facility][id number], 160.02, cm, 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, Height, 50.455, kg, 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, Weight topiramate 2-0 Yes = 1 tab, Mem oria 25 mg oral 8-24 PO, l tablet 21:39: Bedtime, # Mary nn 00 30 tab, 4 Refill(s), [facility][id number], 160.02, cm, 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, Height, 50.455, kg, 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, Weight topiramate 2021-0 Yes = 1 tab, Mem oria 25 mg oral 8-24 PO, l tablet 21:39: Bedtime, # Mary nn 00 30 tab, 4 Refill(s), [facility][id number], 160.02, cm, 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, Height, 50.455, kg, 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, Weight topiramate 2021-0 Yes = 1 tab, Mem oria 25 mg oral 8-24 PO, l tablet 21:39: Bedtime, # Mary nn 00 30 tab, 4 Refill(s), [facility][id number], 160.02, cm, 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, Height, 50.455, kg, 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, Weight topiramate 2021-0 Yes = 1 tab, Mem oria 25 mg oral 8-24 PO, l tablet 21:39: Bedtime, # Mary nn 00 30 tab, 4 Refill(s), [facility][id number], 160.02, cm, 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, Height, 50.455, kg, 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, Weight topiramate 2-0 Yes = 1 tab, Mem oria 25 mg oral 8-24 PO, l tablet 21:39: Bedtime, # Mary nn 00 30 tab, 4 Refill(s), [facility][id number], 160.02, cm, 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, Height, 50.455, kg, 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, Weight topiramate 2-0 Yes = 1 tab, Mem oria 25 mg oral 8-24 PO, l tablet 21:39: Bedtime, # Mary nn 00 30 tab, 4 Refill(s), Pharmacy: [facility] #[id number], 160.02, cm, 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, Height, 50.455, kg, 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, Weight topiramate 2021-0 Yes = 1 tab, Mem oria 25 mg oral 8-24 PO, l tablet 21:39: Bedtime, # Mary nn 00 30 tab, 4 Refill(s), Pharmacy: [facility] #[id number], 160.02, cm, 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, Height, 50.455, kg, 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, Weight topiramate 2021-0 Yes = 1 tab, Mem oria 25 mg oral 8-24 PO, l tablet 21:39: Bedtime, # Mary nn 00 30 tab, 4 Refill(s), Pharmacy: [facility] #[id number], 160.02, cm, 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, Height, 50.455, kg, 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, Weight FLUoxetine 2-0 Yes 80mg Take 80 mg U nivers 40 mg 8-05 by mouth ity of capsule 00:00: in the [place] [address] morning. Medical Branch FLUoxetine 2022-0 Yes 80mg Take 80 mg U nivers 40 mg 8-05 by mouth ity of capsule 00:00: in the [place] [address] morning. Medical Branch FLUoxetine 2022-0 Yes 80mg Take 80 mg U nivers 40 mg 8-05 by mouth ity of capsule 00:00: in the [place] [address] morning. Medical Branch FLUoxetine 2022-0 Yes 80mg Take 2 Unive rs 40 mg 8-05 capsules ity of capsule 00:00: by mouth [place] in the Medical morning. Branch FLUoxetine 2022-0 Yes 80mg Take 2 Unive rs 40 mg 8-05 capsules ity of capsule 00:00: by mouth 00 in the Medical morning. Branch OXcarbazepi 2-0 Yes 150mg Take 150 U nivers ne 150 mg 7-05 mg by ity of tablet 00:00: mouth at [place] [address] bedtime. Medical Branch OXcarbazepi 2022-0 Yes 150mg Take 150 U nivers ne 150 mg 7-05 mg by ity of tablet 00:00: mouth at [place] [address] bedtime. Medical Branch OXcarbazepi 2-0 Yes 150mg Take 150 U nivers ne 150 mg 7-05 mg by ity of tablet 00:00: mouth at [place] [address] bedtime. Medical Branch OXcarbazepi 2-0 Yes 150mg Take 1 Uni vers ne 150 mg 7-05 tablet by ity o f tablet 00:00: mouth at [place] [address] bedtime. Medical Branch OXcarbazepi 2-0 Yes 150mg Take 1 Uni vers ne 150 mg 7-05 tablet by ity o f tablet 00:00: mouth at [place] [address] bedtime. Medical Branch ondansetron 2-0 Yes Univer s 4 mg tablet 05-28 ity of 00:00: [place] 00 Medical Branch ondansetron 2-0 Yes Univer s 4 mg tablet 05-28 ity of 00:00: [place] 00 Medical [facility] ondansetron 2-0 Yes Univer s 4 mg tablet 05-28 ity of 00:00: [place] 00 Medical [facility] ondansetron 2-0 Yes Univer s 4 mg tablet 05-28 ity of 00:00: [place] 00 Medical Branch ondansetron 2-0 Yes Univer s 4 mg tablet - ity of 00:00: [place] 00 Medical [facility] atorvastati 2-0 Yes = 1 tab, Me moria n 20 mg 6-13 PO, l oral tablet 19:24: Bedtime, # [place] 00 30 tab, 3 Refill(s), Pharmacy: [facility] #[id number], 160.02, cm, 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, Height, 50.455, kg, 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, Weight atorvastati 2022-0 Yes = 1 tab, Me moria n 20 mg 6-13 PO, l oral tablet 19:24: Bedtime, # [place] 00 30 tab, 3 Refill(s), [facility][id number], 160.02, cm, 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, Height, 50.455, kg, 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, Weight atorvastati 0 Yes = 1 tab, Me moria n 20 mg 6-13 PO, l oral tablet 19:24: Bedtime, # [place] 00 30 tab, 3 Refill(s), [facility] #[id number], 160.02, cm, 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, Height, 50.455, kg, 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, Weight atorvastati Yes = 1 tab, Me moria n 20 mg 6-13 PO, l oral tablet 19:24: Bedtime, # [place] 00 30 tab, 3 Refill(s), [facility][id number], 160.02, cm, 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, Height, 50.455, kg, 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, Weight atorvastati Yes = 1 tab, Me moria n 20 mg 6-13 PO, l oral tablet 19:24: Bedtime, # [place] 00 30 tab, 3 Refill(s), [facility] #[id number], 160.02, cm, 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, Height, 50.455, kg, 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, Weight atorvastati 0 Yes = 1 tab, Me moria n 20 mg 6-13 PO, l oral tablet 19:24: Bedtime, # [place] 00 30 tab, 3 Refill(s), [facility] #[id number], 160.02, cm, 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, Height, 50.455, kg, 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, Weight atorvastati Yes = 1 tab, Me moria n 20 mg 6-13 PO, l oral tablet 19:24: Bedtime, # [place] 00 30 tab, 3 Refill(s), [facility][id number], 160.02, cm, 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, Height, 50.455, kg, 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, Weight atorvastati 0 Yes = 1 tab, Me moria n 20 mg 6-13 PO, l oral tablet 19:24: Bedtime, # [place] 00 30 tab, 3 Refill(s), [facility][id number], 160.02, cm, 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, Height, 50.455, kg, 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, Weight atorvastati 0 Yes = 1 tab, Me moria n 20 mg 6-13 PO, l oral tablet 19:24: Bedtime, # [place] 00 30 tab, 3 Refill(s), [facility][id number], 160.02, cm, 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, Height, 50.455, kg, 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, Weight atorvastati 0 Yes = 1 tab, Me moria n 20 mg 6-13 PO, l oral tablet 19:24: Bedtime, # [place] 00 30 tab, 3 Refill(s), [facility][id number], 160.02, cm, 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, Height, 50.455, kg, 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, Weight atorvastati 2021-0 Yes = 1 tab, Me moria n 20 mg 6-13 PO, l oral tablet 19:24: Bedtime, # [place] 00 30 tab, 3 Refill(s), [facility][id number], 160.02, cm, 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, Height, 50.455, kg, 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, Weight atorvastati 0 Yes = 1 tab, Me moria n 20 mg 6-13 PO, l oral tablet 19:24: Bedtime, # [place] 00 30 tab, 3 Refill(s), Pharmacy: [facility] #[id number], 160.02, cm, 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, Height, 50.455, kg, 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, Weight atorvastati 0 Yes = 1 tab, Me moria n 20 mg 6-13 PO, l oral tablet 19:24: Bedtime, # [place] 00 30 tab, 3 Refill(s), Pharmacy: [facility] #[id number], 160.02, cm, 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, Height, 50.455, kg, 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, Weight atorvastati Yes = 1 tab, Me moria n 20 mg 6-13 PO, l oral tablet 19:24: Bedtime, # [place] 00 30 tab, 3 Refill(s), Pharmacy: [facility] [facility] #[id number], 160.02, cm, 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, Height, 50.455, kg, 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, Weight atorvastati 0 Yes = 1 tab, Me moria n 20 mg 6-13 PO, l oral tablet 19:24: Bedtime, # [place] 00 30 tab, 3 Refill(s), Pharmacy: [facility] #[id number], 160.02, cm, 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, Height, 50.455, kg, 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, Weight atorvastati 0 Yes = 1 tab, Me moria n 20 mg 6-13 PO, l oral tablet 19:24: Bedtime, # [place] 00 30 tab, 3 Refill(s), Pharmacy: [facility] #[id number], 160.02, cm, 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, Height, 50.455, kg, 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, Weight atorvastati 0 Yes = 1 tab, Me moria n 20 mg 6-13 PO, l oral tablet 19:24: Bedtime, # [place] 00 30 tab, 3 Refill(s), Pharmacy: [facility] #[id number], 160.02, cm, 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, Height, 50.455, kg, 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, Weight atorvastati 0 Yes = 1 tab, Me moria n 20 mg 6-13 PO, l oral tablet 19:24: Bedtime, # [place] 00 30 tab, 3 Refill(s), Pharmacy: [facility] [facility] #[id number], 160.02, cm, 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, Height, 50.455, kg, 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, Weight atorvastati 0 Yes = 1 tab, Me moria n 20 mg 6-13 PO, l oral tablet 19:24: Bedtime, # [place] 00 30 tab, 3 Refill(s), Pharmacy: [facility] #[id number], 160.02, cm, 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, Height, 50.455, kg, 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, Weight atorvastati 0 Yes = 1 tab, Me moria n 20 mg 6-13 PO, l oral tablet 19:24: Bedtime, # [place] 00 30 tab, 3 Refill(s), Pharmacy: [facility] #[id number], 160.02, cm, 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, Height, 50.455, kg, 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, Weight atorvastati 2021-0 Yes = 1 tab, Me moria n 20 mg 6-13 PO, l oral tablet 19:24: Bedtime, # [place] 00 30 tab, 3 Refill(s), Pharmacy: [facility] #[id number], 160.02, cm, 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, Height, 50.455, kg, 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, Weight atorvastati 0 Yes = 1 tab, Me moria n 20 mg 6-13 PO, l oral tablet 19:24: Bedtime, # [place] 00 30 tab, 3 Refill(s), Pharmacy: [facility] #[id number], 160.02, cm, 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, Height, 50.455, kg, 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, Weight atorvastati 0 Yes = 1 tab, Me moria n 20 mg 6-13 PO, l oral tablet 19:24: Bedtime, # [place] 00 30 tab, 3 Refill(s), Pharmacy: [facility] #[id number], 160.02, cm, 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, Height, 50.455, kg, 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, Weight atorvastati 0 Yes = 1 tab, Me moria n 20 mg 6-13 PO, l oral tablet 19:24: Bedtime, # [place] 00 30 tab, 3 Refill(s), Pharmacy: [facility] #[id number], 160.02, cm, 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, Height, 50.455, kg, 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, Weight atorvastati 2021-0 Yes = 1 tab, Me moria n 20 mg 6-13 PO, l oral tablet 19:24: Bedtime, # [place] 00 30 tab, 3 Refill(s), Pharmacy: [facility] #[id number], 160.02, cm, 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, Height, 50.455, kg, 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, Weight atorvastati 2021-0 Yes = 1 tab, Me moria n 20 mg 6-13 PO, l oral tablet 19:24: Bedtime, # [place] 00 30 tab, 3 Refill(s), Pharmacy: [facility] #[id number], 160.02, cm, 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, Height, 50.455, kg, 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, Weight atorvastati 2021-0 Yes = 1 tab, Me moria n 20 mg 6-13 PO, l oral tablet 19:24: Bedtime, # [place] 00 30 tab, 3 Refill(s), Pharmacy: [facility] #[id number], 160.02, cm, 01/06/22 9:19:00 MOLDING ROOM SUPERVISOR, Height, 50.455, kg, 01/06/22 9:19:00 MOLDING ROOM SUPERVISOR, Weight atorvastati 0 Yes = 1 tab, Me moria n 20 mg 6-13 PO, l oral tablet 19:24: Bedtime, # [place] 00 30 tab, 3 Refill(s), Pharmacy: [facility] #[id number], 160.02, cm, 01/06/22 9:19:00 MOLDING ROOM SUPERVISOR, Height, 50.455, kg, 01/06/22 9:19:00 MOLDING ROOM SUPERVISOR, Weight atorvastati 0 Yes = 1 tab, Me moria n 20 mg 6-13 PO, l oral tablet 19:24: Bedtime, # [place] 00 30 tab, 3 Refill(s), [id number], 160.02, cm, 01/06/22 9:19:00 MOLDING ROOM SUPERVISOR, Height, 50.455, kg, 01/06/22 9:19:00 MOLDING ROOM SUPERVISOR, Weight atorvastati 0 Yes = 1 tab, Me moria n 20 mg 6-13 PO, l oral tablet 19:24: Bedtime, # [place] 00 30 tab, 3 Refill(s), [id number], 160.02, cm, 01/06/22 9:19:00 MOLDING ROOM SUPERVISOR, Height, 50.455, kg, 01/06/22 9:19:00 MOLDING ROOM SUPERVISOR, Weight atorvastati 2021-0 Yes = 1 tab, Me moria n 20 mg 6-13 PO, l oral tablet 19:24: Bedtime, # [place] 00 30 tab, 3 Refill(s), [id number], 160.02, cm, 01/06/22 9:19:00 MOLDING ROOM SUPERVISOR, Height, 50.455, kg, 01/06/22 9:19:00 MOLDING ROOM SUPERVISOR, Weight atorvastati 0 Yes = 1 tab, Me moria n 20 mg 6-13 PO, l oral tablet 19:24: Bedtime, # [place] 00 30 tab, 3 Refill(s), Pharmacy: [facility] #[id number], 160.02, cm, 01/06/22 9:19:00 MOLDING ROOM SUPERVISOR, Height, 50.455, kg, 01/06/22 9:19:00 MOLDING ROOM SUPERVISOR, Weight atorvastati 0 Yes = 1 tab, Me moria n 20 mg 6-13 PO, l oral tablet 19:24: Bedtime, # [place] 00 30 tab, 3 Refill(s), Pharmacy: [facility] #[id number], 160.02, cm, 01/06/22 9:19:00 MOLDING ROOM SUPERVISOR, Height, 50.455, kg, 01/06/22 9:19:00 MOLDING ROOM SUPERVISOR, Weight atorvastati 0 Yes = 1 tab, Me moria n 20 mg 6-13 PO, l oral tablet 19:24: Bedtime, # [place] 00 30 tab, 3 Refill(s), Pharmacy: [facility] #[id number], 160.02, cm, 01/06/22 9:19:00 MOLDING ROOM SUPERVISOR, Height, 50.455, kg, 01/06/22 9:19:00 MOLDING ROOM SUPERVISOR, Weight atorvastati 0 Yes = 1 tab, Me moria n 20 mg 6-13 PO, l oral tablet 19:24: Bedtime, # [place] 00 30 tab, 3 Refill(s), Pharmacy: [facility] #[id number], 160.02, cm, 01/06/22 9:19:00 MOLDING ROOM SUPERVISOR, Height, 50.455, kg, 01/06/22 9:19:00 MOLDING ROOM SUPERVISOR, Weight atorvastati 2021-0 Yes = 1 tab, Me moria n 20 mg 6-13 PO, l oral tablet 19:24: Bedtime, # [place] 00 30 tab, 3 Refill(s), Pharmacy: [facility] #[id number], 160.02, cm, 01/06/22 9:19:00 MOLDING ROOM SUPERVISOR, Height, 50.455, kg, 01/06/22 9:19:00 MOLDING ROOM SUPERVISOR, Weight atorvastati 2021-0 Yes = 1 tab, Me moria n 20 mg 6-13 PO, l oral tablet 19:24: Bedtime, # [place] 00 30 tab, 3 Refill(s), Pharmacy: [facility] #[id number], 160.02, cm, 01/06/22 9:19:00 MOLDING ROOM SUPERVISOR, Height, 50.455, kg, 01/06/22 9:19:00 MOLDING ROOM SUPERVISOR, Weight OXcarbazepi 2021-0 Yes = 1 tab, Me moria ne 150 mg 3-03 PO, l oral tablet 14:43: Bedtime, # [place] 00 30 tab, 2 Refill(s), Pharmacy: [facility] #[id number], 160.02, cm, 01/06/22 9:19:00 MOLDING ROOM SUPERVISOR, Height, 50.455, kg, 01/06/22 9:19:00 MOLDING ROOM SUPERVISOR, Weight OXcarbazepi 2021-0 Yes = 1 tab, Me moria ne 150 mg 3-03 PO, l oral tablet 14:43: Bedtime, # [place] 00 30 tab, 2 Refill(s), Pharmacy: [facility] #[id number], 160.02, cm, 01/06/22 9:19:00 MOLDING ROOM SUPERVISOR, Height, 50.455, kg, 01/06/22 9:19:00 MOLDING ROOM SUPERVISOR, Weight OXcarbazepi 2021-0 Yes = 1 tab, Me moria ne 150 mg 3-03 PO, l oral tablet 14:43: Bedtime, # [place] 00 30 tab, 2 Refill(s), Pharmacy: [facility] #[id number], 160.02, cm, 01/06/22 9:19:00 MOLDING ROOM SUPERVISOR, Height, 50.455, kg, 01/06/22 9:19:00 MOLDING ROOM SUPERVISOR, Weight OXcarbazepi 2-0 Yes = 1 tab, Me moria ne 150 mg 3-03 PO, l oral tablet 14:43: Bedtime, # [place] 00 30 tab, 2 Refill(s), [id number], 160.02, cm, 01/06/22 9:19:00 MOLDING ROOM SUPERVISOR, Height, 50.455, kg, 01/06/22 9:19:00 MOLDING ROOM SUPERVISOR, Weight OXcarbazepi 2-0 Yes = 1 tab, Me moria ne 150 mg 3-03 PO, l oral tablet 14:43: Bedtime, # [place] 00 30 tab, 2 Refill(s), Pharmacy: [facility] #[id number], 160.02, cm, 01/06/22 9:19:00 MOLDING ROOM SUPERVISOR, Height, 50.455, kg, 01/06/22 9:19:00 MOLDING ROOM SUPERVISOR, Weight OXcarbazepi 2-0 Yes = 1 tab, Me moria ne 150 mg 3-03 PO, l oral tablet 14:43: Bedtime, # [place] 00 30 tab, 2 Refill(s), Pharmacy: [facility] #[id number], 160.02, cm, 01/06/22 9:19:00 MOLDING ROOM SUPERVISOR, Height, 50.455, kg, 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, Weight OXcarbazepi 2021-0 Yes = 1 tab, Me moria ne 150 mg 3-03 PO, l oral tablet 14:43: Bedtime, # [place] 00 30 tab, 2 Refill(s), Pharmacy: [facility] #[id number], 160.02, cm, 01/06/22 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, Height, 50.455, kg, 01/06/22 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, Weight OXcarbazepi 2021-0 Yes = 1 tab, Me moria ne 150 mg 3-03 PO, l oral tablet 14:43: Bedtime, # [place] 00 30 tab, 2 Refill(s), Pharmacy: [facility] #[id number], 160.02, cm, 01/06/22 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, Height, 50.455, kg, 01/06/22 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, Weight OXcarbazepi 2-0 Yes = 1 tab, Me moria ne 150 mg 3-03 PO, l oral tablet 14:43: Bedtime, # [place] 00 30 tab, 2 Refill(s), [facility][id number], 160.02, cm, 01/06/22 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, Height, 50.455, kg, 01/06/22 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, Weight OXcarbazepi 2022-0 Yes = 1 tab, Me moria ne 150 mg 3-03 PO, l oral tablet 14:43: Bedtime, # [place] 00 30 tab, 2 Refill(s), Pharmacy: [facility] #[id number], 160.02, cm, 01/06/22 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, Height, 50.455, kg, 01/06/22 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, Weight OXcarbazepi 2-0 Yes = 1 tab, Me moria ne 150 mg 3-03 PO, l oral tablet 14:43: Bedtime, # [place] 00 30 tab, 2 Refill(s), Pharmacy: [facility] #[id number], 160.02, cm, 01/06/22 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, Height, 50.455, kg, 01/06/22 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, Weight OXcarbazepi 2021-0 Yes = 1 tab, Me moria ne 150 mg 3-03 PO, l oral tablet 14:43: Bedtime, # [place] 00 30 tab, 2 Refill(s), Pharmacy: [facility] #[id number], 160.02, cm, 01/06/22 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, Height, 50.455, kg, 01/06/22 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, Weight OXcarbazepi 2021-0 Yes = 1 tab, Me moria ne 150 mg 3-03 PO, l oral tablet 14:43: Bedtime, # [place] 00 30 tab, 2 Refill(s), Pharmacy: [facility] #[id number], 160.02, cm, 01/06/22 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, Height, 50.455, kg, 01/06/22 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, Weight OXcarbazepi 2-0 Yes = 1 tab, Me moria ne 150 mg 3-03 PO, l oral tablet 14:43: Bedtime, # [place] 00 30 tab, 2 Refill(s), [facility][id number], 160.02, cm, 01/06/22 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, Height, 50.455, kg, 01/06/22 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, Weight OXcarbazepi 2022-0 Yes = 1 tab, Me moria ne 150 mg 3-03 PO, l oral tablet 14:43: Bedtime, # [place] 00 30 tab, 2 Refill(s), Pharmacy: [facility] #[id number], 160.02, cm, 01/06/22 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, Height, 50.455, kg, 01/06/22 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, Weight OXcarbazepi 2-0 Yes = 1 tab, Me moria ne 150 mg 3-03 PO, l oral tablet 14:43: Bedtime, # [place] 00 30 tab, 2 Refill(s), Pharmacy: [facility] #[id number], 160.02, cm, 01/06/22 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, Height, 50.455, kg, 01/06/22 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, Weight OXcarbazepi 2021-0 Yes = 1 tab, Me moria ne 150 mg 3-03 PO, l oral tablet 14:43: Bedtime, # [place] 00 30 tab, 2 Refill(s), Pharmacy: [facility] #[id number], 160.02, cm, 01/06/22 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, Height, 50.455, kg, 01/06/22 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, Weight OXcarbazepi 2021-0 Yes = 1 tab, Me moria ne 150 mg 3-03 PO, l oral tablet 14:43: Bedtime, # [place] 00 30 tab, 2 Refill(s), Pharmacy: [facility] #[id number], 160.02, cm, 01/06/22 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, Height, 50.455, kg, 01/06/22 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, Weight OXcarbazepi 2-0 Yes = 1 tab, Me moria ne 150 mg 3-03 PO, l oral tablet 14:43: Bedtime, # [place] 00 30 tab, 2 Refill(s), [facility][id number], 160.02, cm, 01/06/22 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, Height, 50.455, kg, 01/06/22 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, Weight OXcarbazepi 2022-0 Yes = 1 tab, Me moria ne 150 mg 3-03 PO, l oral tablet 14:43: Bedtime, # [place] 00 30 tab, 2 Refill(s), Pharmacy: [facility] #[id number], 160.02, cm, 01/06/22 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, Height, 50.455, kg, 01/06/22 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, Weight OXcarbazepi 2-0 Yes = 1 tab, Me moria ne 150 mg 3-03 PO, l oral tablet 14:43: Bedtime, # [place] 00 30 tab, 2 Refill(s), Pharmacy: [facility] #[id number], 160.02, cm, 01/06/22 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, Height, 50.455, kg, 01/06/22 9:19:00 MOLDING ROOM SUPERVISOR, Weight OXcarbazepi 2021-0 Yes = 1 tab, Me moria ne 150 mg 3-03 PO, l oral tablet 14:43: Bedtime, # [place] 00 30 tab, 2 Refill(s), Pharmacy: [facility] #[id number], 160.02, cm, 01/06/22 9:19:00 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 ROOM 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, Height, 50.455, kg, 01/06/22 9:19:00 MOLDING ROOM SUPERVISOR, Weight OXcarbazepi 2021-0 Yes = 1 tab, Me moria ne 150 mg 3-03 PO, l oral tablet 14:43: Bedtime, # [place] 00 30 tab, 2 Refill(s), Pharmacy: [facility] #[id number], 160.02, cm, 01/06/22 9:19:00 MOLDING ROOM SUPERVISOR, Height, 50.455, kg, 01/06/22 9:19:00 MOLDING ROOM SUPERVISOR, Weight OXcarbazepi 2-0 Yes = 1 tab, Me moria ne 150 mg 3-03 PO, l oral tablet 14:43: Bedtime, # [place] 00 30 tab, 2 Refill(s), [facility][id number], 160.02, cm, 01/06/22 9:19:00 MOLDING ROOM SUPERVISOR, Height, 50.455, kg, 01/06/22 9:19:00 MOLDING ROOM SUPERVISOR, Weight OXcarbazepi 2022-0 Yes = 1 tab, Me moria ne 150 mg 3-03 PO, l oral tablet 14:43: Bedtime, # [place] 00 30 tab, 2 Refill(s), Pharmacy: [facility] #[id number], 160.02, cm, 01/06/22 9:19:00 MOLDING ROOM SUPERVISOR, Height, 50.455, kg, 01/06/22 9:19:00 MOLDING ROOM SUPERVISOR, Weight OXcarbazepi 2-0 Yes = 1 tab, Me moria ne 150 mg 3-03 PO, l oral tablet 14:43: Bedtime, # [place] 00 30 tab, 2 Refill(s), Pharmacy: [facility] #[id number], 160.02, cm, 01/06/22 9:19:00 MOLDING ROOM SUPERVISOR, Height, 50.455, kg, 01/06/22 9:19:00 MOLDING ROOM SUPERVISOR, Weight OXcarbazepi 2021-0 Yes = 1 tab, Me moria ne 150 mg 3-03 PO, l oral tablet 14:43: Bedtime, # [place] 00 30 tab, 2 Refill(s), Pharmacy: [facility] #[id number], 160.02, cm, 01/06/22 9:19:00 MOLDING ROOM SUPERVISOR, Height, 50.455, kg, 01/06/22 9:19:00 MOLDING ROOM SUPERVISOR, Weight OXcarbazepi 2021-0 Yes = 1 tab, Me moria ne 150 mg 3-03 PO, l oral tablet 14:43: Bedtime, # [place] 00 30 tab, 2 Refill(s), Pharmacy: [facility] #[id number], 160.02, cm, 01/06/22 9:19:00 MOLDING ROOM SUPERVISOR, Height, 50.455, kg, 01/06/22 9:19:00 MOLDING ROOM SUPERVISOR, Weight OXcarbazepi 2-0 Yes = 1 tab, Me moria ne 150 mg 3-03 PO, l oral tablet 14:43: Bedtime, # [place] 00 30 tab, 2 Refill(s), [facility][id number], 160.02, cm, 01/06/22 9:19:00 MOLDING ROOM SUPERVISOR, Height, 50.455, kg, 01/06/22 9:19:00 MOLDING ROOM SUPERVISOR, Weight OXcarbazepi 2022-0 Yes = 1 tab, Me moria ne 150 mg 3-03 PO, l oral tablet 14:43: Bedtime, # [place] 00 30 tab, 2 Refill(s), Pharmacy: [facility] #[id number], 160.02, cm, 01/06/22 9:19:00 MOLDING ROOM SUPERVISOR, Height, 50.455, kg, 01/06/22 9:19:00 MOLDING ROOM SUPERVISOR, Weight OXcarbazepi 2-0 Yes = 1 tab, Me moria ne 150 mg 3-03 PO, l oral tablet 14:43: Bedtime, # [place] 00 30 tab, 2 Refill(s), Pharmacy: [facility] #[id number], 160.02, cm, 01/06/22 9:19:00 MOLDING ROOM SUPERVISOR, Height, 50.455, kg, 01/06/22 9:19:00 MOLDING ROOM SUPERVISOR, Weight OXcarbazepi 2021-0 Yes = 1 tab, Me moria ne 150 mg 3-03 PO, l oral tablet 14:43: Bedtime, # [place] 00 30 tab, 2 Refill(s), Pharmacy: [facility] #[id number], 160.02, cm, 01/06/22 9:19:00 MOLDING ROOM SUPERVISOR, Height, 50.455, kg, 01/06/22 9:19:00 MOLDING ROOM SUPERVISOR, Weight OXcarbazepi 2021-0 Yes = 1 tab, Me moria ne 150 mg 3-03 PO, l oral tablet 14:43: Bedtime, # [place] 00 30 tab, 2 Refill(s), Pharmacy: [facility] #[id number], 160.02, cm, 01/06/22 9:19:00 MOLDING ROOM SUPERVISOR, Height, 50.455, kg, 01/06/22 9:19:00 MOLDING ROOM SUPERVISOR, Weight OXcarbazepi 2-0 Yes = 1 tab, Me moria ne 150 mg 3-03 PO, l oral tablet 14:43: Bedtime, # [place] 00 30 tab, 2 Refill(s), [facility][id number], 160.02, cm, 01/06/22 9:19:00 MOLDING ROOM SUPERVISOR, Height, 50.455, kg, 01/06/22 9:19:00 MOLDING ROOM SUPERVISOR, Weight OXcarbazepi 2022-0 Yes = 1 tab, Me moria ne 150 mg 3-03 PO, l oral tablet 14:43: Bedtime, # [place] 00 30 tab, 2 Refill(s), Pharmacy: [facility] #[id number], 160.02, cm, 01/06/22 9:19:00 MOLDING ROOM SUPERVISOR, Height, 50.455, kg, 01/06/22 9:19:00 MOLDING ROOM SUPERVISOR, Weight OXcarbazepi 2021-0 Yes = 1 tab, Me moria ne 150 mg 3-03 PO, l oral tablet 14:43: Bedtime, # [place] 00 30 tab, 2 Refill(s), Pharmacy: [facility] #[id number], 160.02, cm, 01/06/22 9:19:00 MOLDING ROOM SUPERVISOR, Height, 50.455, kg, 01/06/22 9:19:00 MOLDING ROOM SUPERVISOR, Weight OXcarbazepi 2021-0 Yes = 1 tab, Me moria ne 150 mg 3-03 PO, l oral tablet 14:43: Bedtime, # [place] 00 30 tab, 2 Refill(s), Pharmacy: [facility] #[id number], 160.02, cm, 01/06/22 9:19:00 MOLDING ROOM SUPERVISOR, Height, 50.455, kg, 01/06/22 9:19:00 MOLDING ROOM SUPERVISOR, Weight [place] 2021-[address] 1 Mem [...] 00 EVERY film EIGHT HOURS DIRECTED [place] 2022-[address] 1 Mem oria ne 4 MG / 1-13 FILM UNDER l Naloxone 1 22:38: TONGUE Mary nn MG Oral 00 EVERY Strip EIGHT HOURS DIRECTED [place] 2022-[address] 1 Mem oria ne-naloxone 1-13 FILM UNDER l 4 mg-1 mg 22:38: TONGUE Reece n sublingual 00 EVERY film EIGHT HOURS DIRECTED [place] 2022-[address] 1 Mem oria ne 4 [...] 00 EVERY film EIGHT HOURS DIRECTED [place] 2022-[address] 1 Mem oria ne 4 MG / 1-13 FILM UNDER l Naloxone 1 22:38: TONGUE Mary nn MG Oral 00 EVERY Strip EIGHT HOURS DIRECTED [place] 2022-[address] 1 Mem oria ne-naloxone 1-13 FILM UNDER l 4 mg-1 mg 22:38: TONGUE Reece n sublingual 00 EVERY film EIGHT HOURS DIRECTED [place] 2022-[address] 1 Mem oria ne 4 MG / 1-13 FILM UNDER l Naloxone 1 22:38: TONGUE Mary nn MG Oral 00 EVERY Strip EIGHT HOURS DIRECTED [facility] 2-[address] 1 Mem oria ne-naloxone 1-13 FILM UNDER l 4 mg-1 mg 22:38: TONGUE Reeec n sublingual 00 EVERY film EIGHT HOURS [...] 00 EVERY Strip EIGHT HOURS DIRECTED [place] 2022-[address] 1 Mem oria ne-naloxone 1-13 FILM UNDER l 4 mg-1 mg 22:38: TONGUE Reece n sublingual 00 EVERY film EIGHT HOURS DIRECTED [place] 2022-[address] 1 Mem oria ne 4 MG / 1-13 FILM UNDER l Naloxone 1 22:38: TONGUE Mary nn MG Oral 00 EVERY Strip EIGHT HOURS DIRECTED [place] 2022-[address] 1 Mem oria ne-naloxone 1-13 FILM UNDER l 4 mg-1 mg 22:38: TONGUE Reece n sublingual 00 EVERY film EIGHT HOURS DIRECTED [place] 2022-[address] 1 Mem oria ne 4 [...] 00 EVERY film EIGHT HOURS DIRECTED [place] 2022-[address] 1 Mem oria ne 4 MG / 1-13 FILM UNDER l Naloxone 1 22:38: TONGUE Mary nn MG Oral 00 EVERY Strip EIGHT HOURS DIRECTED [place] 2022-[address] 1 Mem oria ne-naloxone 1-13 FILM UNDER l 4 mg-1 mg 22:38: TONGUE Reece n sublingual 00 EVERY film EIGHT HOURS DIRECTED [place] 2-[address] 1 Mem oria ne 4 MG / 1-13 FILM UNDER l Naloxone 1 22:38: TONGUE Mary nn MG Oral 00 EVERY Strip EIGHT HOURS DIRECTED [place] 2021-[address] 1 Mem oria ne 4 MG / 1-13 FILM UNDER l Naloxone 1 22:38: TONGUE Mary nn MG Oral 00 EVERY Strip EIGHT HOURS DIRECTED [place] 2-[address] 1 Mem oria ne-naloxone 1-13 FILM UNDER l 4 mg-1 mg 22:38: TONGUE Reece n sublingual 00 EVERY film EIGHT HOURS DIRECTED [place] 2021-[address] [...] FILM UNDER l Naloxone 1 22:38: TONGUE Mayr nn MG Oral 00 EVERY Strip EIGHT HOURS DIRECTED [place] 2022-[address] 1 Mem oria ne-naloxone 1-13 [...] 00 EVERY film EIGHT HOURS DIRECTED [place] 2022-[address] 1 Mem oria ne 4 MG / 1-13 FILM UNDER l Naloxone 1 22:38: TONGUE Mary nn MG Oral 00 EVERY Strip EIGHT HOURS DIRECTED [place] 2022-[address] 1 Mem oria ne-naloxone 1-13 FILM UNDER l 4 mg-1 mg 22:38: TONGUE Reece n sublingual 00 EVERY film EIGHT HOURS DIRECTED [place] 2022-[address] 1 Mem oria ne 4 [...] tab, H [place] 00 0 Refill(s), Pharmacy: [facility], 160.02, cm, 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, Height, 49.091, kg, 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, Weight topiramate 2020-11 Yes = 1 tab, Mem oria 50 mg oral 2-23 PO, BID, # l tablet 19:34: 180 tab, 2 Mary nn 00 Refill(s), Pharmacy: [facility], 160.02, cm, 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, Height, 49.091, kg, 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, Weight atorvastati 2020-11 Yes = 1 tab, Me moria n 20 mg 2-23 PO, Daily, l oral tablet 19:34: # 30 tab, H [place] 00 0 Refill(s), Pharmacy: [facility], 160.02, cm, 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, Height, 49.091, kg, 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, Weight topiramate 2020-11 Yes = 1 tab, Mem oria 50 mg oral 2-23 PO, BID, # l tablet 19:34: 180 tab, 2 Mary nn 00 Refill(s), Pharmacy: [facility], 160.02, cm, 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, Height, 49.091, kg, 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, Weight atorvastati 2020-11 Yes = 1 tab, Me moria n 20 mg 2-23 PO, Daily, l oral tablet 19:34: # 30 tab, H [place] 00 0 Refill(s), Pharmacy: [facility], 160.02, cm, 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, Height, 49.091, kg, 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, Weight topiramate 2020-11 Yes = 1 tab, Mem oria 50 mg oral 2-23 PO, BID, # l tablet 19:34: 180 tab, 2 Mary nn 00 Refill(s), Pharmacy: [facility], 160.02, cm, 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, Height, 49.091, kg, 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, Weight atorvastati 2020-11 Yes = 1 tab, Me moria n 20 mg 2-23 PO, Daily, l oral tablet 19:34: # 30 tab, H [place] 00 0 Refill(s), Pharmacy: [facility], 160.02, cm, 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, Height, 49.091, kg, 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, Weight topiramate 2020-11 Yes = 1 tab, Mem oria 50 mg oral 2-23 PO, BID, # l tablet 19:34: 180 tab, 2 Mary nn 00 Refill(s), Pharmacy: [facility], 160.02, cm, 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, Height, 49.091, kg, 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, Weight atorvastati 2020-11 Yes = 1 tab, Me moria n 20 mg 2-23 PO, Daily, l oral tablet 19:34: # 30 tab, H [place] 00 0 Refill(s), Pharmacy: [facility], 160.02, cm, 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, Height, 49.091, kg, 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, Weight topiramate 2020-11 Yes = 1 tab, Mem oria 50 mg oral 2-23 PO, BID, # l tablet 19:34: 180 tab, 2 Mary nn 00 Refill(s), Pharmacy: [facility], 160.02, cm, 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, Height, 49.091, kg, 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, Weight atorvastati 2020-11 Yes = 1 tab, Me moria n 20 mg 2-23 PO, Daily, l oral tablet 19:34: # 30 tab, H ermann 00 0 Refill(s), Pharmacy: [facility], 160.02, cm, 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, Height, 49.091, kg, 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, Weight topiramate 2020-11 Yes = 1 tab, Mem oria 50 mg oral 2-23 PO, BID, # l tablet 19:34: 180 tab, 2 Mary nn 00 Refill(s), Pharmacy: [facility], 160.02, cm, 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, Height, 49.091, kg, 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, Weight atorvastati 2020-11 Yes = 1 tab, Me moria n 20 mg 2-23 PO, Daily, l oral tablet 19:34: # 30 tab, H ermann 00 0 Refill(s), Pharmacy: [facility], 160.02, cm, 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, Height, 49.091, kg, 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, Weight topiramate 2020-11 Yes = 1 tab, Mem oria 50 mg oral 2-23 PO, BID, # l tablet 19:34: 180 tab, 2 Mary nn 00 Refill(s), Pharmacy: [facility], 160.02, cm, 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, Height, 49.091, kg, 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, Weight atorvastati 2020-11 Yes = 1 tab, Me moria n 20 mg 2-23 PO, Daily, l oral tablet 19:34: # 30 tab, H ermann 00 0 Refill(s), Pharmacy: [facility], 160.02, cm, 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, Height, 49.091, kg, 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, Weight topiramate 2020-11 Yes = 1 tab, Mem oria 50 mg oral 2-23 PO, BID, # l tablet 19:34: 180 tab, 2 Mary nn 00 Refill(s), Pharmacy: [facility], 160.02, cm, 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, Height, 49.091, kg, 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, Weight atorvastati 2020-11 Yes = 1 tab, Me moria n 20 mg 2-23 PO, Daily, l oral tablet 19:34: # 30 tab, H ermann 00 0 Refill(s), Pharmacy: [facility], 160.02, cm, 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, Height, 49.091, kg, 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, Weight topiramate 2020-11 Yes = 1 tab, Mem oria 50 mg oral 2-23 PO, BID, # l tablet 19:34: 180 tab, 2 Mary nn 00 Refill(s), Pharmacy: [facility], 160.02, cm, 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, Height, 49.091, kg, 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, Weight atorvastati 2020-11 Yes = 1 tab, Me moria n 20 mg 2-23 PO, Daily, l oral tablet 19:34: # 30 tab, H ermann 00 0 Refill(s), Pharmacy: [facility], 160.02, cm, 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, Height, 49.091, kg, 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, Weight topiramate 2020-11 Yes = 1 tab, Mem oria 50 mg oral 2-23 PO, BID, # l tablet 19:34: 180 tab, 2 Mary nn 00 Refill(s), Pharmacy: [facility], 160.02, cm, 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, Height, 49.091, kg, 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, Weight topiramate 2020-11 Yes = 1 tab, Mem oria 50 mg oral 2-23 PO, BID, # l tablet 19:34: 180 tab, 2 Mary nn 00 Refill(s), Pharmacy: [facility], 160.02, cm, 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, Height, 49.091, kg, 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, Weight atorvastati 2020-11 Yes = 1 tab, Me moria n 20 mg 2-23 PO, Daily, l oral tablet 19:34: # 30 tab, H ermann 00 0 Refill(s), Pharmacy: [facility], 160.02, cm, 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, Height, 49.091, kg, 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, Weight topiramate 2020-11 Yes = 1 tab, Mem oria 50 mg oral 2-23 PO, BID, # l tablet 19:34: 180 tab, 2 Mary nn 00 Refill(s), Pharmacy: [facility], 160.02, cm, 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, Height, 49.091, kg, 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, Weight atorvastati 2020-11 Yes = 1 tab, Me moria n 20 mg 2-23 PO, Daily, l oral tablet 19:34: # 30 tab, H ermann 00 0 Refill(s), Pharmacy: [facility], 160.02, cm, 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, Height, 49.091, kg, 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, Weight topiramate 2020-11 Yes = 1 tab, Mem oria 50 mg oral 2-23 PO, BID, # l tablet 19:34: 180 tab, 2 Mary nn 00 Refill(s), Pharmacy: [facility], 160.02, cm, 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, Height, 49.091, kg, 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, Weight atorvastati 2020-11 Yes = 1 tab, Me moria n 20 mg 2-23 PO, Daily, l oral tablet 19:34: # 30 tab, H ermann 00 0 Refill(s), Pharmacy: [facility], 160.02, cm, 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, Height, 49.091, kg, 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, Weight topiramate 2020-11 Yes = 1 tab, Mem oria 50 mg oral 2-23 PO, BID, # l tablet 19:34: 180 tab, 2 Mary nn 00 Refill(s), Pharmacy: [facility], 160.02, cm, 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, Height, 49.091, kg, 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, Weight atorvastati 2020-11 Yes = 1 tab, Me moria n 20 mg 2-23 PO, Daily, l oral tablet 19:34: # 30 tab, H ermann 00 0 Refill(s), Pharmacy: [facility], 160.02, cm, 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, Height, 49.091, kg, 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, Weight topiramate 2020-11 Yes = 1 tab, Mem oria 50 mg oral 2-23 PO, BID, # l tablet 19:34: 180 tab, 2 Mary nn 00 Refill(s), Pharmacy: [facility], 160.02, cm, 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, Height, 49.091, kg, 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, Weight ALPRAZolam Yes alprazolam U nivers 0.5 [...] 600 mg ity of tablet 10:31: tablet [place] 37 Take 1 Medical tablet 3 Branch times a day by oral route. tiZANidine 2020-0 Yes 4mg Take 4 mg Un malia 4 mg tablet 9-17 by mouth. ity of 10:31: [address] Branch zolpidem 2020-0 Yes 5mg Take 5 mg Univ ers 12.5 mg CR 9-17 by mouth. ity of tablet 10:31: [address] Branch ALPRAZolam 2020-0 Yes alprazolam U nivers 0.5 mg 9-17 0.5 mg ity of tablet 10:31: tablet [place] 37 Take 1 Medical tablet Branch every [...] 600 mg ity of tablet 10:31: tablet [place] 37 Take 1 Medical tablet 3 Branch times a day by oral route. tiZANidine 2020-0 Yes 4mg Take 4 mg Un malia 4 mg tablet 9-17 by mouth. ity of 10:31: [address] Branch zolpidem 2020-0 Yes 5mg Take 5 mg Univ ers 12.5 mg CR 9-17 by mouth. ity of tablet 10:31: [address] Branch ALPRAZolam 2020-0 Yes alprazolam U nivers 0.5 mg 9-17 0.5 mg ity of tablet 10:31: tablet [place] 37 Take 1 Medical tablet Branch every [...] 600 mg ity of tablet 10:31: tablet [place] 37 Take 1 Medical tablet 3 Branch times a day by oral route. tiZANidine 0 Yes 4mg Take 4 mg Un malia 4 mg tablet 9-17 by mouth. ity of 10:31: [address] zolpidem 2020-0 Yes 5mg Take 5 mg Univ ers 12.5 mg CR 9-17 by mouth. ity of tablet 10:31: [address] ALPRAZolam 2020-0 Yes alprazolam U nivers 0.5 mg 9-17 0.5 mg ity of tablet 10:31: tablet [place] 37 Take 1 Medical tablet Branch every [...] 600 mg ity of tablet 10:31: tablet [place] 37 Take 1 Medical tablet 3 Branch times a day by oral route. tiZANidine 2020-0 Yes 4mg Take 4 mg Un malia 4 mg tablet 9-17 by mouth. ity of 10:31: [address] ALPRAZolam 2020-0 Yes alprazolam U nivers 0.5 mg 9-17 0.5 mg ity of tablet 10:31: tablet [place] 37 Take 1 Medical tablet Branch every [...] 600 mg ity of tablet 10:31: tablet [place] 37 Take 1 Medical tablet 3 Branch times a day by oral route. tiZANidine 2020-0 Yes 4mg Take 4 mg Un malia 4 mg tablet 9-17 by mouth. ity of 10:31: [place] [address] Medical Branch ALPRAZolam 2020-0 Yes alprazolam U nivers 0.5 mg 9-17 0.5 mg ity of tablet 10:31: tablet [place] 37 Take 1 Medical tablet Branch every [...] 600 mg ity of tablet 10:31: tablet [place] 37 Take 1 Medical tablet 3 Branch times a day by oral route. tiZANidine 0 Yes 4mg Take 4 mg Un malia 4 mg tablet 9-17 by mouth. ity of 10:31: [address] Branch ALPRAZolam 0 Yes alprazolam U nivers 0.5 mg 9-17 0.5 mg ity of tablet 10:31: tablet [place] 37 Take 1 Medical tablet Branch every [...] 600 mg ity of tablet 10:31: tablet [place] [address] Take 1 Medical tablet 3 Branch times a day by oral route. tiZANidine 2020-0 Yes 4mg Take 4 mg Un malia 4 mg tablet 9-17 by mouth. ity of 10:31: [place] [address] Medical Branch gabapentin 2020-0 Yes gabapentin U nivers 600 mg 9-17 600 mg ity of tablet 10:31: tablet [place] 37 Take 1 Medical tablet 3 Branch times a day by oral route. gabapentin 2020-0 Yes gabapentin U nivers 600 mg 9-17 600 mg ity of tablet 10:31: tablet [place] 37 Take 1 Medical tablet 3 Branch times a day by oral route. ALPRAZolam 2020-0 Yes alprazolam U nivers 0.5 mg 9-17 0.5 mg ity of tablet 10:31: tablet [place] 37 Take 1 Medical tablet Branch every day by oral route for 10 days. Dexlansopra 2020-0 Yes Dexilant Un mlaia zole 9-17 60 mg ity of (DEXILANT) 10:31: capsule, Luis as 60 mg 37 delayed Medical capsule release Branch Take 1 capsule every day by oral route for 56 days. gabapentin 2020-0 Yes gabapentin U nivers 600 mg 9-17 600 mg ity of tablet 10:31: tablet [place] 37 Take 1 Medical tablet 3 Branch times a day by oral route. tiZANidine 2020-0 Yes 4mg Take 4 mg Un malia 4 mg tablet 9-17 by mouth. ity of 10:31: [address] Branch zolpidem 2020-0 Yes 5mg Take 5 mg Univ ers 12.5 mg CR 9-17 by mouth. ity of tablet 10:31: [address] Branch ALPRAZolam 2020-0 Yes alprazolam U nivers 0.5 mg 9-17 0.5 mg ity of tablet 10:31: tablet [place] 37 Take 1 Medical tablet Branch every [...] 600 mg ity of tablet 10:31: tablet [place] 37 Take 1 Medical tablet 3 Branch times a day by oral route. tiZANidine 2020-0 Yes 4mg Take 4 mg Un malia 4 mg tablet 9-17 by mouth. ity of 10:31: [address] Branch zolpidem 2020-0 Yes 5mg Take 5 mg Univ ers 12.5 mg CR 9-17 by mouth. ity of tablet 10:31: [address] Branch ALPRAZolam 2020-0 Yes alprazolam U nivers 0.5 mg 9-17 0.5 mg ity of tablet 10:31: tablet [place] 37 Take 1 Medical tablet Branch every [...] 9-17 by mouth. ity of tablet 10:31: 37 Medical Branch atorvastati Yes 10mg Take 10 mg Univers n 10 mg 7-25 by mouth ity of tablet 00:00: every [place] 00 evening. Medical Branch atorvastati Yes 10mg Take 10 mg Univers n 10 mg 7-25 by mouth ity of tablet 00:00: every [place] 00 evening. Medical Branch atorvastati Yes 10mg Take 10 mg Univers n 10 mg 7-25 by mouth ity of tablet 00:00: every [place] 00 evening. Medical Branch atorvastati Yes 10mg Take 10 mg Univers n 10 mg 7-25 by mouth ity of tablet 00:00: every [place] 00 evening. Medical Branch atorvastati Yes 10mg Take 10 mg Univers n 10 mg 7-25 by mouth ity of tablet 00:00: every [place] 00 evening. Medical Branch atorvastati 0 Yes 10mg Take 10 mg Univers n 10 mg 7-25 by mouth ity of tablet 00:00: every [place] 00 evening. Medical Branch atorvastati 0 Yes 10mg Take 10 mg Univers n 10 mg 7-25 by mouth ity of tablet 00:00: every [place] 00 evening. Medical Branch atorvastati 0 Yes 10mg Take 1 Univ ers n 10 mg 7-25 tablet by ity of tablet 00:00: mouth [place] 00 every Medical evening. Branch atorvastati 0 Yes 10mg Take 1 Univ ers n 10 mg 7-25 tablet by ity of tablet 00:00: mouth [place] 00 every Medical evening. Branch atorvastati 2020-0 Yes 10mg Take 10 mg Univers n 10 mg 7-25 by mouth ity of tablet 00:00: every [place] 00 evening. Medical Branch atorvastati 2020-0 Yes 10mg Take 10 mg Univers n 10 mg 7-25 by mouth ity of tablet 00:00: every [place] 00 evening. Medical Branch atorvastati 2020-0 Yes 10mg Take 10 mg Univers n 10 mg 7-25 by mouth ity of tablet 00:00: every [place] 00 evening. Medical Branch atorvastati 2020-0 Yes 20 mg = 2 M emoria n 10 mg 1-25 tab, PO, l oral tablet 21:02: Daily, # He rmann 00 60 tab, 1 Refill(s), Pharmacy: [facility] #[id number], 162.56, cm, 12/22/20 14:47:00 MOLDING ROOM SUPERVISOR, Height, 66.818, kg, 12/22/20 14:47:00 MOLDING ROOM SUPERVISOR, Weight atorvastati 2020-0 Yes 20 mg = 2 M emoria n 10 mg 1-25 tab, PO, l oral tablet 21:02: Daily, # [place] 00 60 tab, 1 Refill(s), Pharmacy: [facility] #[id number], 162.56, cm, 12/22/20 14:47:00 MOLDING ROOM SUPERVISOR, Height, 66.818, kg, 12/22/20 14:47:00 MOLDING ROOM SUPERVISOR, Weight atorvastati 2020- Yes 20 mg = 2 M emoria n 10 mg 1-25 tab, PO, l oral tablet 21:02: Daily, # [place] r[place] 00 60 tab, 1 Refill(s), Pharmacy: [facility] #[id number], 162.56, cm, 12/22/20 14:47:00 MOLDING ROOM SUPERVISOR, Height, 66.818, kg, 12/22/20 14:47:00 MOLDING ROOM SUPERVISOR, Weight atorvastati 2020-0 Yes 20 mg = 2 M emoria n 10 mg 1-25 tab, PO, l oral tablet 21:02: Daily, # He r[place] 00 60 tab, 1 Refill(s), Pharmacy: [facility] #[id number], 162.56, cm, 12/22/20 14:47:00 MOLDING ROOM SUPERVISOR, Height, 66.818, kg, 12/22/20 14:47:00 MOLDING ROOM SUPERVISOR, Weight atorvastati 2020-0 Yes 20 mg = 2 M emoria n 10 mg 1-25 tab, PO, l oral tablet 21:02: Daily, # He rmann 00 60 tab, 1 Refill(s), [id number], 162.56, cm, 12/22/20 14:47:00 MOLDING ROOM SUPERVISOR, Height, 66.818, kg, 12/22/20 14:47:00 MOLDING ROOM SUPERVISOR, Weight atorvastati 2020-0 Yes 20 mg = 2 M emoria n 10 mg 1-25 tab, PO, l oral tablet 21:02: Daily, # He rmann 00 60 tab, 1 Refill(s), [facility] #[id number], 162.56, cm, 12/22/20 14:47:00 MOLDING ROOM SUPERVISOR, Height, 66.818, kg, 12/22/20 14:47:00 MOLDING ROOM SUPERVISOR, Weight atorvastati 2020-0 Yes 20 mg = 2 M emoria n 10 mg 1-25 tab, PO, l oral tablet 21:02: Daily, # He rmann 00 60 tab, 1 Refill(s), [facility] #[id number], 162.56, cm, 12/22/20 14:47:00 MOLDING ROOM SUPERVISOR, Height, 66.818, kg, 12/22/20 14:47:00 MOLDING ROOM SUPERVISOR, Weight atorvastati 2020-0 Yes 20 mg = 2 M emoria n 10 mg 1-25 tab, PO, l oral tablet 21:02: Daily, # He rmann 00 60 tab, 1 Refill(s), [facility][id number], 162.56, cm, 12/22/20 14:47:00 MOLDING ROOM SUPERVISOR, Height, 66.818, kg, 12/22/20 14:47:00 MOLDING ROOM SUPERVISOR, Weight atorvastati 2020-0 Yes 20 mg = 2 M emoria n 10 mg 1-25 tab, PO, l oral tablet 21:02: Daily, # He rmann 00 60 tab, 1 Refill(s), Pharmacy: [facility] ST[facility] #[id number], 162.56, cm, 12/22/20 14:47:00 MOLDING ROOM SUPERVISOR, Height, 66.818, kg, 12/22/20 14:47:00 MOLDING ROOM SUPERVISOR, Weight atorvastati 2020-0 Yes 20 mg = 2 M emoria n 10 mg 1-25 tab, PO, l oral tablet 21:02: Daily, # He rmann 00 60 tab, 1 Refill(s), Pharmacy: [facility] STORE #[id number], 162.56, cm, 12/22/20 14:47:00 MOLDING ROOM SUPERVISOR, Height, 66.818, kg, 12/22/20 14:47:00 MOLDING ROOM SUPERVISOR, Weight atorvastati 2020-0 Yes 20 mg = 2 M emoria n 10 mg 1-25 tab, PO, l oral tablet 21:02: Daily, # He rmann 00 60 tab, 1 Refill(s), Pharmacy: [facility] STORE #[id number], 162.56, cm, 12/22/20 14:47:00 MOLDING ROOM SUPERVISOR, Height, 66.818, kg, 12/22/20 14:47:00 MOLDING ROOM SUPERVISOR, Weight atorvastati 2020-0 Yes 20 mg = 2 M emoria n 10 mg 1-25 tab, PO, l oral tablet 21:02: Daily, # He rmann 00 60 tab, 1 Refill(s), Pharmacy: [facility] STORE #[id number], 162.56, cm, 12/22/20 14:47:00 MOLDING ROOM SUPERVISOR, Height, 66.818, kg, 12/22/20 14:47:00 MOLDING ROOM SUPERVISOR, Weight atorvastati 2020-0 Yes 20 mg = 2 M emoria n 10 mg 1-25 tab, PO, l oral tablet 21:02: Daily, # He rmann 00 60 tab, 1 Refill(s), Pharmacy: [facility] #[id number], 162.56, cm, 12/22/20 14:47:00 MOLDING ROOM SUPERVISOR, Height, 66.818, kg, 12/22/20 14:47:00 MOLDING ROOM SUPERVISOR, Weight atorvastati 2020-0 Yes 20 mg = 2 M emoria n 10 mg 1-25 tab, PO, l oral tablet 21:02: Daily, # He rmann 00 60 tab, 1 Refill(s), Pharmacy: [facility] #[id number], 162.56, cm, 12/22/20 14:47:00 MOLDING ROOM SUPERVISOR, Height, 66.818, kg, 12/22/20 14:47:00 MOLDING ROOM SUPERVISOR, Weight atorvastati 2020-0 Yes 20 mg = 2 M emoria n 10 mg 1-25 tab, PO, l oral tablet 21:02: Daily, # He rmann 00 60 tab, 1 Refill(s), Pharmacy: [facility] #[id number], 162.56, cm, 12/22/20 14:47:00 MOLDING ROOM SUPERVISOR, Height, 66.818, kg, 12/22/20 14:47:00 MOLDING ROOM SUPERVISOR, Weight atorvastati 2020-0 Yes 20 mg = 2 M emoria n 10 mg 1-25 tab, PO, l oral tablet 21:02: Daily, # Brendon rmann 00 60 tab, 1 Refill(s), Pharmacy: [facility] #[id number], 162.56, cm, 12/22/20 14:47:00 MOLDING ROOM SUPERVISOR, Height, 66.818, kg, 12/22/20 14:47:00 MOLDING ROOM SUPERVISOR, Weight atorvastati 2020-0 Yes 20 mg = 2 M emoria n 10 mg 1-25 tab, PO, l oral tablet 21:02: Daily, # Brendon rmann 00 60 tab, 1 Refill(s), Pharmacy: [facility] #[id number], 162.56, cm, 12/22/20 14:47:00 MOLDING ROOM SUPERVISOR, Height, 66.818, kg, 12/22/20 14:47:00 MOLDING ROOM SUPERVISOR, Weight atorvastati 2020-0 Yes 20 mg = 2 M emoria n 10 mg 1-25 tab, PO, l oral tablet 21:02: Daily, # He rmann 00 60 tab, 1 Refill(s), Pharmacy: [facility] #[id number], 162.56, cm, 12/22/20 14:47:00 MOLDING ROOM SUPERVISOR, Height, 66.818, kg, 12/22/20 14:47:00 MOLDING ROOM SUPERVISOR, Weight atorvastati 2020-0 Yes 20 mg = 2 M emoria n 10 mg 1-25 tab, PO, l oral tablet 21:02: Daily, # He rmann 00 60 tab, 1 Refill(s), Pharmacy: [facility] #[id number], 162.56, cm, 12/22/20 14:47:00 MOLDING ROOM SUPERVISOR, Height, 66.818, kg, 12/22/20 14:47:00 MOLDING ROOM SUPERVISOR, Weight atorvastati 2020-0 Yes 20 mg = 2 M emoria n 10 mg 1-25 tab, PO, l oral tablet 21:02: Daily, # He rmann 00 60 tab, 1 Refill(s), Pharmacy: [facility] #[id number], 162.56, cm, 12/22/20 14:47:00 MOLDING ROOM SUPERVISOR, Height, 66.818, kg, 12/22/20 14:47:00 MOLDING ROOM SUPERVISOR, Weight atorvastati 2020-0 Yes 20 mg = 2 M emoria n 10 mg 1-25 tab, PO, l oral tablet 21:02: Daily, # Brendno rmann 00 60 tab, 1 Refill(s), Pharmacy: [facility] #[id number], 162.56, cm, 12/22/20 14:47:00 MOLDING ROOM SUPERVISOR, Height, 66.818, kg, 12/22/20 14:47:00 MOLDING ROOM SUPERVISOR, Weight atorvastati 2020-0 Yes 20 mg = 2 M emoria n 10 mg 1-25 tab, PO, l oral tablet 21:02: Daily, # He rmann 00 60 tab, 1 Refill(s), Pharmacy: [facility] #[id number], 162.56, cm, 12/22/20 14:47:00 MOLDING ROOM SUPERVISOR, Height, 66.818, kg, 12/22/20 14:47:00 MOLDING ROOM SUPERVISOR, Weight atorvastati 2020-0 Yes 20 mg = 2 M emoria n 10 mg 1-25 tab, PO, l oral tablet 21:02: Daily, # He rmann 00 60 tab, 1 Refill(s), Pharmacy: [facility] #[id number], 162.56, cm, 12/22/20 14:47:00 MOLDING ROOM SUPERVISOR, Height, 66.818, kg, 12/22/20 14:47:00 MOLDING ROOM SUPERVISOR, Weight atorvastati 2021-0 Yes 20 mg = 2 M emoria n 10 mg 1-25 tab, PO, l oral tablet 21:02: Daily, # He rmann 00 60 tab, 1 Refill(s), Pharmacy: [facility] #[id number], 162.56, cm, 12/22/20 14:47:00 MOLDING ROOM SUPERVISOR, Height, 66.818, kg, 12/22/20 14:47:00 MOLDING ROOM SUPERVISOR, Weight atorvastati 2020-0 Yes 20 mg = 2 M emoria n 10 mg 1-25 tab, PO, l oral tablet 21:02: Daily, # He rmann 00 60 tab, 1 Refill(s), Pharmacy: [facility] #[id number], 162.56, cm, 12/22/20 14:47:00 MOLDING ROOM SUPERVISOR, Height, 66.818, kg, 12/22/20 14:47:00 MOLDING ROOM SUPERVISOR, Weight atorvastati 2020-0 Yes 20 mg = 2 M emoria n 10 mg 1-25 tab, PO, l oral tablet 21:02: Daily, # He rmann 00 60 tab, 1 Refill(s), Pharmacy: [facility] [place] #[id number], 162.56, cm, 12/22/20 14:47:00 MOLDING ROOM SUPERVISOR, Height, 66.818, kg, 12/22/20 14:47:00 MOLDING ROOM SUPERVISOR, Weight atorvastati 2020-0 Yes 20 mg = 2 M emoria n 10 mg 1-25 tab, PO, l oral tablet 21:02: Daily, # He rmann 00 60 tab, 1 Refill(s), Pharmacy: [facility] #[id number], 162.56, cm, 12/22/20 14:47:00 MOLDING ROOM SUPERVISOR, Height, 66.818, kg, 12/22/20 14:47:00 MOLDING ROOM SUPERVISOR, Weight atorvastati 2020-0 Yes 20 mg = 2 M emoria n 10 mg 1-25 tab, PO, l oral tablet 21:02: Daily, # He rmann 00 60 tab, 1 Refill(s), Pharmacy: [facility] #[id number], 162.56, cm, 12/22/20 14:47:00 MOLDING ROOM SUPERVISOR, Height, 66.818, kg, 12/22/20 14:47:00 MOLDING ROOM SUPERVISOR, Weight atorvastati 2020-0 Yes 20 mg = 2 M emoria n 10 mg 1-25 tab, PO, l oral tablet 21:02: Daily, # He rmann 00 60 tab, 1 Refill(s), Pharmacy: [facility] #[id number], 162.56, cm, 12/22/20 14:47:00 MOLDING ROOM SUPERVISOR, Height, 66.818, kg, 12/22/20 14:47:00 MOLDING ROOM SUPERVISOR, Weight atorvastati 2020-0 Yes 20 mg = 2 M emoria n 10 mg 1-25 tab, PO, l oral tablet 21:02: Daily, # He rmann 00 60 tab, 1 Refill(s), Pharmacy: [facility] #[id number], 162.56, cm, 12/22/20 14:47:00 MOLDING ROOM SUPERVISOR, Height, 66.818, kg, 12/22/20 14:47:00 MOLDING ROOM SUPERVISOR, Weight atorvastati 2020-0 Yes 20 mg = 2 M emoria n 10 mg 1-25 tab, PO, l oral tablet 21:02: Daily, # He rmann 00 60 tab, 1 Refill(s), Pharmacy: [facility] #[id number], 162.56, cm, 12/22/20 14:47:00 MOLDING ROOM SUPERVISOR, Height, 66.818, kg, 12/22/20 14:47:00 MOLDING ROOM SUPERVISOR, Weight atorvastati 2020-0 Yes 20 mg = 2 M emoria n 10 mg 1-25 tab, PO, l oral tablet 21:02: Daily, # He rmann 00 60 tab, 1 Refill(s), Pharmacy: [facility] #[id number], 162.56, cm, 12/22/20 14:47:00 MOLDING ROOM SUPERVISOR, Height, 66.818, kg, 12/22/20 14:47:00 MOLDING ROOM SUPERVISOR, Weight atorvastati 2020-0 Yes 20 mg = 2 M emoria n 10 mg 1-25 tab, PO, l oral tablet 21:02: Daily, # He rmann 00 60 tab, 1 Refill(s), Pharmacy: [facility] #[id number], 162.56, cm, 12/22/20 14:47:00 MOLDING ROOM SUPERVISOR, Height, 66.818, kg, 12/22/20 14:47:00 MOLDING ROOM SUPERVISOR, Weight atorvastati 2020-0 Yes 20 mg = 2 M emoria n 10 mg 1-25 tab, PO, l oral tablet 21:02: Daily, # He rmann 00 60 tab, 1 Refill(s), Pharmacy: [facility] #[id number], 162.56, cm, 12/22/20 14:47:00 MOLDING ROOM SUPERVISOR, Height, 66.818, kg, 12/22/20 14:47:00 MOLDING ROOM SUPERVISOR, Weight atorvastati 2020-0 Yes 20 mg = 2 M emoria n 10 mg 1-25 tab, PO, l oral tablet 21:02: Daily, # He rmann 00 60 tab, 1 Refill(s), Pharmacy: [facility] #[id number], 162.56, cm, 12/22/20 14:47:00 MOLDING ROOM SUPERVISOR, Height, 66.818, kg, 12/22/20 14:47:00 MOLDING ROOM SUPERVISOR, Weight atorvastati 2020-0 Yes 20 mg = 2 M emoria n 10 mg 1-25 tab, PO, l oral tablet 21:02: Daily, # He rmann 00 60 tab, 1 Refill(s), Pharmacy: [facility] #[id number], 162.56, cm, 12/22/20 14:47:00 MOLDING ROOM SUPERVISOR, Height, 66.818, kg, 12/22/20 14:47:00 MOLDING ROOM SUPERVISOR, Weight atorvastati 0 Yes 20 mg = 2 M emoria n 10 mg 1-25 tab, PO, l oral tablet 21:02: Daily, # He rmann 00 60 tab, 1 Refill(s), Pharmacy: [facility] #[id number], 162.56, cm, 12/22/20 14:47:00 MOLDING ROOM SUPERVISOR, Height, 66.818, kg, 12/22/20 14:47:00 MOLDING ROOM SUPERVISOR, Weight topiramate 2020-0 Yes 50 mg = 1 Me moria 50 mg oral 9-03 tab, PO, l tablet 18:52: BID, # 60 Reece n 00 tab, 3 Refill(s), Pharmacy: [facility] #[id number], 162.56, cm, 07/31/20 13:42:00 CDT, Height, 56.818, kg, 07/31/20 13:42:00 CDT, Weight topiramate 2020-0 Yes 50 mg = 1 Me moria 50 mg oral 9-03 tab, PO, l tablet 18:52: BID, # 60 Reece n 00 tab, 3 Refill(s), Pharmacy: [facility] #[id number], 162.56, cm, 07/31/20 13:42:00 CDT, Height, 56.818, kg, 07/31/20 13:42:00 CDT, Weight topiramate 2020-0 Yes 50 mg = 1 Me moria 50 mg oral 9-03 tab, PO, l tablet 18:52: BID, # 60 Reece n 00 tab, 3 Refill(s), Pharmacy: [facility] [place] #[id number], 162.56, cm, 07/31/20 13:42:00 CDT, Height, 56.818, kg, 07/31/20 13:42:00 CDT, Weight topiramate 2020-0 Yes 50 mg = 1 Me moria 50 mg oral 9-03 tab, PO, l tablet 18:52: BID, # 60 Reece n 00 tab, 3 Refill(s), Pharmacy: [facility] #[id number], 162.56, cm, 07/31/20 13:42:00 CDT, Height, 56.818, kg, 07/31/20 13:42:00 CDT, Weight topiramate 2020-0 Yes 50 mg = 1 Me moria 50 mg oral 9-03 tab, PO, l tablet 18:52: BID, # 60 Reece n 00 tab, 3 Refill(s), Pharmacy: [facility] #[id number], 162.56, cm, 07/31/20 13:42:00 CDT, Height, 56.818, kg, 07/31/20 13:42:00 CDT, Weight topiramate 2020-0 Yes 50 mg = 1 Me moria 50 mg oral 9-03 tab, PO, l tablet 18:52: BID, # 60 Reece n 00 tab, 3 Refill(s), Pharmacy: [facility] #[id number], 162.56, cm, 07/31/20 13:42:00 CDT, Height, 56.818, kg, 07/31/20 13:42:00 CDT, Weight topiramate 2020-0 Yes 50 mg = 1 Me moria 50 mg oral 9-03 tab, PO, l tablet 18:52: BID, # 60 Reece n 00 tab, 3 Refill(s), Pharmacy: [facility] #[id number], 162.56, cm, 07/31/20 13:42:00 CDT, Height, 56.818, kg, 07/31/20 13:42:00 CDT, Weight topiramate 2020-0 Yes 50 mg = 1 Me moria 50 mg oral 9-03 tab, PO, l tablet 18:52: BID, # 60 Reece n 00 tab, 3 Refill(s), Pharmacy: [facility] #[id number], 162.56, cm, 07/31/20 13:42:00 CDT, Height, 56.818, kg, 07/31/20 13:42:00 CDT, Weight topiramate 2020-0 Yes 50 mg = 1 Me moria 50 mg oral 9-03 tab, PO, l tablet 18:52: BID, # 60 Reece n 00 tab, 3 Refill(s), Pharmacy: [facility] [facility] #[id number], 162.56, cm, 07/31/20 13:42:00 CDT, Height, 56.818, kg, 07/31/20 13:42:00 CDT, Weight topiramate 2020-0 Yes 50 mg = 1 Me moria 50 mg oral 9-03 tab, PO, l tablet 18:52: BID, # 60 Reece n 00 tab, 3 Refill(s), Pharmacy: [facility] #[id number], 162.56, cm, 07/31/20 13:42:00 CDT, Height, 56.818, kg, 07/31/20 13:42:00 CDT, Weight topiramate 2020-0 Yes 50 mg = 1 Me moria 50 mg oral 9-03 tab, PO, l tablet 18:52: BID, # 60 Reece n 00 tab, 3 Refill(s), Pharmacy: [facility] #[id number], 162.56, cm, 07/31/20 13:42:00 CDT, Height, 56.818, kg, 07/31/20 13:42:00 CDT, Weight topiramate 2020-0 Yes 50 mg = 1 Me moria 50 mg oral 9-03 tab, PO, l tablet 18:52: BID, # 60 Reece n 00 tab, 3 Refill(s), Pharmacy: [facility] #[id number], 162.56, cm, 07/31/20 13:42:00 CDT, Height, 56.818, kg, 07/31/20 13:42:00 CDT, Weight topiramate 2020-0 Yes 50 mg = 1 Me moria 50 mg oral 9-03 tab, PO, l tablet 18:52: BID, # 60 Reece n 00 tab, 3 Refill(s), Pharmacy: [facility] #[id number], 162.56, cm, 07/31/20 13:42:00 CDT, Height, 56.818, kg, 07/31/20 13:42:00 CDT, Weight topiramate 2020-0 Yes 50 mg = 1 Me moria 50 mg oral 9-03 tab, PO, l tablet 18:52: BID, # 60 Reece n 00 tab, 3 Refill(s), Pharmacy: [facility] #[id number], 162.56, cm, 07/31/20 13:42:00 CDT, Height, 56.818, kg, 07/31/20 13:42:00 CDT, Weight topiramate 2020-0 Yes 50 mg = 1 Me moria 50 mg oral 9-03 tab, PO, l tablet 18:52: BID, # 60 Reece n 00 tab, 3 Refill(s), Pharmacy: [facility] #[id number], 162.56, cm, 07/31/20 13:42:00 CDT, Height, 56.818, kg, 07/31/20 13:42:00 CDT, Weight topiramate 2020-0 Yes 50 mg = 1 Me moria 50 mg oral 9-03 tab, PO, l tablet 18:52: BID, # 60 Reece n 00 tab, 3 Refill(s), [facility]: [facility] #[id number], 162.56, cm, 07/31/20 13:42:00 CDT, Height, 56.818, kg, 07/31/20 13:42:00 CDT, Weight topiramate 2020-0 Yes 50 mg = 1 Me moria 50 mg oral 9-03 tab, PO, l tablet 18:52: BID, # 60 Reece n 00 tab, 3 Refill(s), [facility][id number], 162.56, cm, 07/31/20 13:42:00 CDT, Height, 56.818, kg, 07/31/20 13:42:00 CDT, Weight topiramate 2020-0 Yes 50 mg = 1 Me moria 50 mg oral 9-03 tab, PO, l tablet 18:52: BID, # 60 Reece n 00 tab, 3 Refill(s), [facility][id number], 162.56, cm, 07/31/20 13:42:00 CDT, Height, 56.818, kg, 07/31/20 13:42:00 CDT, Weight topiramate 2020-0 Yes 50 mg = 1 Me moria 50 mg oral 9-03 tab, PO, l tablet 18:52: BID, # 60 Reece n 00 tab, 3 Refill(s), [facility][id number], 162.56, cm, 07/31/20 13:42:00 CDT, Height, 56.818, kg, 07/31/20 13:42:00 CDT, Weight topiramate 2020-0 Yes 50 mg = 1 Me moria 50 mg oral 9-03 tab, PO, l tablet 18:52: BID, # 60 Reece n 00 tab, 3 Refill(s), [facility]: [facility] #[id number], 162.56, cm, 07/31/20 13:42:00 CDT, Height, 56.818, kg, 07/31/20 13:42:00 CDT, Weight topiramate 2020-0 Yes 50 mg = 1 Me moria 50 mg oral 9-03 tab, PO, l tablet 18:52: BID, # 60 Reece n 00 tab, 3 Refill(s), Pharmacy: [facility] #[id number], 162.56, cm, 07/31/20 13:42:00 CDT, Height, 56.818, kg, 07/31/20 13:42:00 CDT, Weight topiramate 2020-0 Yes 50 mg = 1 Me moria 50 mg oral 9-03 tab, PO, l tablet 18:52: BID, # 60 Reece n 00 tab, 3 Refill(s), Pharmacy: [facility] #[id number], 162.56, cm, 07/31/20 13:42:00 CDT, Height, 56.818, kg, 07/31/20 13:42:00 CDT, Weight topiramate 2020-0 Yes 50 mg = 1 Me moria 50 mg oral 9-03 tab, PO, l tablet 18:52: BID, # 60 Reece n 00 tab, 3 Refill(s), Pharmacy: [facility] #[id number], 162.56, cm, 07/31/20 13:42:00 CDT, Height, 56.818, kg, 07/31/20 13:42:00 CDT, Weight topiramate 2020-0 Yes 50 mg = 1 Me moria 50 mg oral 9-03 tab, PO, l tablet 18:52: BID, # 60 Reece n 00 tab, 3 Refill(s), Pharmacy: [facility] #[id number], 162.56, cm, 07/31/20 13:42:00 CDT, Height, 56.818, kg, 07/31/20 13:42:00 CDT, Weight topiramate 2020-0 Yes 50 mg = 1 Me moria 50 mg oral 9-03 tab, PO, l tablet 18:52: BID, # 60 Reece n 00 tab, 3 Refill(s), Pharmacy: [facility] #[id number], 162.56, cm, 07/31/20 13:42:00 CDT, Height, 56.818, kg, 07/31/20 13:42:00 CDT, Weight topiramate 2020-0 Yes 50 mg = 1 Me moria 50 mg oral 9-03 tab, PO, l tablet 18:52: BID, # 60 Reece n 00 tab, 3 Refill(s), Pharmacy: [facility] #[id number], 162.56, cm, 07/31/20 13:42:00 CDT, Height, 56.818, kg, 07/31/20 13:42:00 CDT, Weight topiramate 2020-0 Yes 50 mg = 1 Me moria 50 mg oral 9-03 tab, PO, l tablet 18:52: BID, # 60 Reece n 00 tab, 3 Refill(s), Pharmacy: [facility] #[id number], 162.56, cm, 07/31/20 13:42:00 CDT, Height, 56.818, kg, 07/31/20 13:42:00 CDT, Weight topiramate 2020-0 Yes 50 mg = 1 Me moria 50 mg oral 9-03 tab, PO, l tablet 18:52: BID, # 60 Reece n 00 tab, 3 Refill(s), Pharmacy: [facility] #[id number], 162.56, cm, 07/31/20 13:42:00 CDT, Height, 56.818, kg, 07/31/20 13:42:00 CDT, Weight topiramate 2020-0 Yes 50 mg = 1 Me moria 50 mg oral 9-03 tab, PO, l tablet 18:52: BID, # 60 Reece n 00 tab, 3 Refill(s), Pharmacy: [facility] #[id number], 162.56, cm, 07/31/20 13:42:00 CDT, Height, 56.818, kg, 07/31/20 13:42:00 CDT, Weight topiramate 2020-0 Yes 50 mg = 1 Me moria 50 mg oral 9-03 tab, PO, l tablet 18:52: BID, # 60 Reece n 00 tab, 3 Refill(s), [facility] #[id number], 162.56, cm, 07/31/20 13:42:00 CDT, Height, 56.818, kg, 07/31/20 13:42:00 CDT, Weight topiramate 2020-0 Yes 50 mg = 1 Me moria 50 mg oral 9-03 tab, PO, l tablet 18:52: BID, # 60 Reece n 00 tab, 3 Refill(s), Pharmacy: [facility] #[id number], 162.56, cm, 07/31/20 13:42:00 CDT, Height, 56.818, kg, 07/31/20 13:42:00 CDT, Weight topiramate 2020-0 Yes 50 mg = 1 Me moria 50 mg oral 9-03 tab, PO, l tablet 18:52: BID, # 60 Reece n 00 tab, 3 Refill(s), Pharmacy: [facility] #[id number], 162.56, cm, 07/31/20 13:42:00 CDT, Height, 56.818, kg, 07/31/20 13:42:00 CDT, Weight topiramate 2020-0 Yes 50 mg = 1 Me moria 50 mg oral 9-03 tab, PO, l tablet 18:52: BID, # 60 Reece n 00 tab, 3 Refill(s), Pharmacy: [facility] #[id number], 162.56, cm, 07/31/20 13:42:00 CDT, Height, 56.818, kg, 07/31/20 13:42:00 CDT, Weight topiramate 2020-0 Yes 50 mg = 1 Me moria 50 mg oral 9-03 tab, PO, l tablet 18:52: BID, # 60 Reece n 00 tab, 3 Refill(s), Pharmacy: [facility] #[id number], 162.56, cm, 07/31/20 13:42:00 CDT, Height, 56.818, kg, 07/31/20 13:42:00 CDT, Weight topiramate 2020-0 Yes 50 mg = 1 Me moria 50 mg oral 9-03 tab, PO, l tablet 18:52: BID, # 60 Reece n 00 tab, 3 Refill(s), Pharmacy: [facility] #[id number], 162.56, cm, 07/31/20 13:42:00 CDT, Height, 56.818, kg, 07/31/20 13:42:00 CDT, Weight topiramate 2020-0 Yes 50 mg = 1 Me moria 50 mg oral 9-03 tab, PO, l tablet 18:52: BID, # 60 Reece n 00 tab, 3 Refill(s), Pharmacy: [facility] #[id number], 162.56, cm, 07/31/20 13:42:00 CDT, Height, 56.818, kg, 07/31/20 13:42:00 CDT, Weight topiramate 2020-0 Yes 50 mg = 1 Me moria 50 mg oral 9-03 tab, PO, l tablet 18:52: BID, # 60 Reece n 00 tab, 3 Refill(s), Pharmacy: [facility] #[id number], 162.56, cm, 07/31/20 13:42:00 CDT, Height, 56.818, kg, 07/31/20 13:42:00 CDT, Weight topiramate 2020-0 Yes 25 mg = 1 Me moria 25 MG Oral 4-15 tab, PO, l Tablet 20:04: BID, # 60 Reece n [Topamax] 00 tab, 2 Refill(s), Pharmacy: [facility] #[id number] topiramate 2020-0 Yes 25 mg = 1 Me moria 25 MG Oral 4-15 tab, PO, l Tablet 20:04: BID, # 60 Reece n [Topamax] 00 tab, 2 Refill(s), Pharmacy: [facility] #[id number] topiramate 2020-0 Yes 25 mg = 1 Me moria 25 MG Oral 4-15 tab, PO, l Tablet 20:04: BID, # 60 Reece n [Topamax] 00 tab, 2 Refill(s), Pharmacy: [facility] #[id number] topiramate 2020-0 Yes 25 mg = 1 Me moria 25 MG Oral 4-15 tab, PO, l Tablet 20:04: BID, # 60 Reece n [Topamax] 00 tab, 2 Refill(s), Pharmacy: [facility] #[id number] topiramate 2020-0 Yes 25 mg = 1 Me moria 25 MG Oral 4-15 tab, PO, l Tablet 20:04: BID, # 60 Reece n [Topamax] 00 tab, 2 Refill(s), Pharmacy: [facility] #[id number] topiramate 2020-0 Yes 25 mg = 1 Me moria 25 MG Oral 4-15 tab, PO, l Tablet 20:04: BID, # 60 Reece n [Topamax] 00 tab, 2 Refill(s), Pharmacy: [facility] #[id number] topiramate 2020-0 Yes 25 mg = 1 Me moria 25 MG Oral 4-15 tab, PO, l Tablet 20:04: BID, # 60 Reece n [Topamax] 00 tab, 2 Refill(s), Pharmacy: [facility] #[id number] topiramate 2020-0 Yes 25 mg = 1 Me moria 25 MG Oral 4-15 tab, PO, l Tablet 20:04: BID, # 60 Reece n [Topamax] 00 tab, 2 Refill(s), Pharmacy: [facility] #[id number] topiramate 2020-0 Yes 25 mg = 1 Me moria 25 MG Oral 4-15 tab, PO, l Tablet 20:04: BID, # 60 Reece n [Topamax] 00 tab, 2 Refill(s), Pharmacy: [facility] #[id number] topiramate 2020-0 Yes 25 mg = 1 Me moria 25 MG Oral 4-15 tab, PO, l Tablet 20:04: BID, # 60 Reece n [Topamax] 00 tab, 2 Refill(s), Pharmacy: [facility] #[id number] topiramate 2020-0 Yes 25 mg = 1 Me moria 25 MG Oral 4-15 tab, PO, l Tablet 20:04: BID, # 60 Reece n [Topamax] 00 tab, 2 Refill(s), Pharmacy: [facility] #[id number] topiramate 2020-0 Yes 25 mg = 1 Me moria 25 MG Oral 4-15 tab, PO, l Tablet 20:04: BID, # 60 Reece n [Topamax] 00 tab, 2 Refill(s), Pharmacy: [facility] #[id number] topiramate 2020-0 Yes 25 mg = 1 Me moria 25 MG Oral 4-15 tab, PO, l Tablet 20:04: BID, # 60 Reece n [Topamax] 00 tab, 2 Refill(s), Pharmacy: [facility] #[id number] topiramate 2020-0 Yes 25 mg = 1 Me moria 25 MG Oral 4-15 tab, PO, l Tablet 20:04: BID, # 60 Reece n [Topamax] 00 tab, 2 Refill(s), Pharmacy: [facility] #[id number] topiramate 2020-0 Yes 25 mg = 1 Me moria 25 MG Oral 4-15 tab, PO, l Tablet 20:04: BID, # 60 Reece n [Topamax] 00 tab, 2 Refill(s), Pharmacy: [facility] #[id number] topiramate 2020-0 Yes 25 mg = 1 Me moria 25 MG Oral 4-15 tab, PO, l Tablet 20:04: BID, # 60 Reece n [Topamax] 00 tab, 2 Refill(s), Pharmacy: [facility] #[id number] topiramate 2020-0 Yes 25 mg = 1 Me moria 25 MG Oral 4-15 tab, PO, l Tablet 20:04: BID, # 60 Reece n [Topamax] 00 tab, 2 Refill(s), Pharmacy: [facility] #[id number] topiramate 2020-0 Yes 25 mg = 1 Me moria 25 MG Oral 4-15 tab, PO, l Tablet 20:04: BID, # 60 Reece n [Topamax] 00 tab, 2 Refill(s), Pharmacy: [facility] #[id number] topiramate 2020-0 Yes 25 mg = 1 Me moria 25 MG Oral 4-15 tab, PO, l Tablet 20:04: BID, # 60 Reece n [Topamax] 00 tab, 2 Refill(s), Pharmacy: [facility] #[id number] topiramate 2020-0 Yes 25 mg = 1 Me moria 25 MG Oral 4-15 tab, PO, l Tablet 20:04: BID, # 60 Reece n [Topamax] 00 tab, 2 Refill(s), Pharmacy: [facility] #[id number] topiramate 2020-0 Yes 25 mg = 1 Me moria 25 MG Oral 4-15 tab, PO, l Tablet 20:04: BID, # 60 Reece n [Topamax] 00 tab, 2 Refill(s), Pharmacy: [facility] #[id number] topiramate 2020-0 Yes 25 mg = 1 Me moria 25 MG Oral 4-15 tab, PO, l Tablet 20:04: BID, # 60 Reece n [Topamax] 00 tab, 2 Refill(s), Pharmacy: [facility] #[id number] topiramate 2020-0 Yes 25 mg = 1 Me moria 25 MG Oral 4-15 tab, PO, l Tablet 20:04: BID, # 60 Reece n [Topamax] 00 tab, 2 Refill(s), Pharmacy: [facility] #[id number] topiramate 2020-0 Yes 25 mg = 1 Me moria 25 MG Oral 4-15 tab, PO, l Tablet 20:04: BID, # 60 Reece n [Topamax] 00 tab, 2 Refill(s), Pharmacy: [facility] #[id number] topiramate 2020-0 Yes 25 mg = 1 Me moria 25 MG Oral 4-15 tab, PO, l Tablet 20:04: BID, # 60 Reece n [Topamax] 00 tab, 2 Refill(s), Pharmacy: [facility] #[id number] topiramate 2020-0 Yes 25 mg = 1 Me moria 25 MG Oral 4-15 tab, PO, l Tablet 20:04: BID, # 60 Reece n [Topamax] 00 tab, 2 Refill(s), Pharmacy: [facility] #[id number] topiramate 2020-0 Yes 25 mg = 1 Me moria 25 MG Oral 4-15 tab, PO, l Tablet 20:04: BID, # 60 Reece n [Topamax] 00 tab, 2 Refill(s), Pharmacy: [facility] #[id number] topiramate 2020-0 Yes 25 mg = 1 Me moria 25 MG Oral 4-15 tab, PO, l Tablet 20:04: BID, # 60 Reece n [Topamax] 00 tab, 2 Refill(s), Pharmacy: [facility] #[id number] topiramate 2020-0 Yes 25 mg = 1 Me moria 25 MG Oral 4-15 tab, PO, l Tablet 20:04: BID, # 60 Reece n [Topamax] 00 tab, 2 Refill(s), Pharmacy: [facility] #[id number] topiramate 2020-0 Yes 25 mg = 1 Me moria 25 MG Oral 4-15 tab, PO, l Tablet 20:04: BID, # 60 Reece n [Topamax] 00 tab, 2 Refill(s), Pharmacy: [facility] #[id number] topiramate 2020-0 Yes 25 mg = 1 Me moria 25 MG Oral 4-15 tab, PO, l Tablet 20:04: BID, # 60 Reece n [Topamax] 00 tab, 2 Refill(s), Pharmacy: [facility] #[id number] topiramate 2020-0 Yes 25 mg = 1 Me moria 25 MG Oral 4-15 tab, PO, l Tablet 20:04: BID, # 60 Reece n [Topamax] 00 tab, 2 Refill(s), Pharmacy: [facility] #[id number] topiramate 2020-0 Yes 25 mg = 1 Me moria 25 MG Oral 4-15 tab, PO, l Tablet 20:04: BID, # 60 Reece n [Topamax] 00 tab, 2 Refill(s), Pharmacy: [facility] #[id number] topiramate 2020-0 Yes 25 mg = 1 Me moria 25 MG Oral 4-15 tab, PO, l Tablet 20:04: BID, # 60 Reece n [Topamax] 00 tab, 2 Refill(s), Pharmacy: [facility] #[id number] topiramate 2020-0 Yes 25 mg = 1 Me moria 25 MG Oral 4-15 tab, PO, l Tablet 20:04: BID, # 60 Reece n [Topamax] 00 tab, 2 Refill(s), Pharmacy: [facility] #[id number] topiramate 2020-0 Yes 25 mg = 1 Me moria 25 MG Oral 4-15 tab, PO, l Tablet 20:04: BID, # 60 Reece n [Topamax] 00 tab, 2 Refill(s), Pharmacy: [facility] #[id number] topiramate 2020-0 Yes 25 mg = 1 Me moria 25 MG Oral 4-15 tab, PO, l Tablet 20:04: BID, # 60 Reece n [Topamax] 00 tab, 2 Refill(s), Pharmacy: [facility] #[id number] Morphine 2020-0 Yes 15 mg, PO, Mem oria 2-25 Q12H, 0 l 19:30: Refill(s) [place] Morphine 2020-0 Yes 15 mg, PO, Mem oria 2-25 Q12H, 0 l 19:30: Refill(s) [place] 00 Morphine 2020-0 Yes 15 mg, PO, Mem oria 2-25 Q12H, 0 l 19:30: Refill(s) [place] 00 Morphine 2020-0 Yes 15 mg, PO, Mem oria 2-25 Q12H, 0 l 19:30: Refill(s) [place] Morphine 2020-0 Yes 15 mg, PO, Mem oria 2-25 Q12H, 0 l 19:30: Refill(s) [place] 00 Morphine 2020-0 Yes 15 mg, PO, Mem oria 2-25 Q12H, 0 l 19:30: Refill(s) [place] 00 Morphine 2020-0 Yes 15 mg, PO, [...] oria 2-25 Q12H, 0 l 19:30: Refill(s) [place] 00 Morphine 2020-0 Yes 15 mg, PO, Mem oria 2-25 Q12H, 0 l 19:30: Refill(s) [place] 00 Morphine 2020-0 Yes 15 mg, PO, Mem oria 2-25 Q12H, 0 l 19:30: Refill(s) [place] Morphine 2020-0 Yes 15 mg, PO, Mem oria 2-25 Q12H, 0 l 19:30: Refill(s) [place] 00 Morphine 2020-0 Yes 15 mg, PO, Mem oria 2-25 Q12H, 0 l 19:30: Refill(s) [place] 00 Morphine 2020-0 Yes 15 mg, PO, Mem oria 2-25 Q12H, 0 l 19:30: Refill(s) [place] 00 Morphine 2020-0 Yes 15 mg, PO, Mem oria 2-25 Q12H, 0 l 19:30: Refill(s) [place] 00 Morphine 2020-0 Yes 15 mg, PO, Mem oria 2-25 Q12H, 0 l 19:30: Refill(s) [place] 00 Morphine 2020-0 Yes 15 mg, PO, Mem oria 2-25 Q12H, 0 l 19:30: Refill(s) [place] 00 Morphine 2020-0 Yes 15 mg, PO, Mem oria 2-25 Q12H, 0 l 19:30: Refill(s) [place] 00 Morphine 2020-0 Yes 15 mg, PO, [...] oria 2-25 Q12H, 0 l 19:30: Refill(s) [place] 00 Morphine 2020-0 Yes 15 mg, PO, Mem oria 2-25 Q12H, 0 l 19:30: Refill(s) [place] 00 Morphine 2020-0 Yes 15 mg, PO, Mem oria 2-25 Q12H, 0 l 19:30: Refill(s) [place] 00 Morphine 2020-0 Yes 15 mg, PO, Mem oria 2-25 Q12H, 0 l 19:30: Refill(s) [place] 00 Morphine 2020-0 Yes 15 mg, PO, Mem oria 2-25 Q12H, 0 l 19:30: Refill(s) [place] 00 Morphine 2020-0 Yes 15 mg, PO, [...] n [Topamax] 00 tab, 2 Refill(s), [id number] topiramate 2020-0 Yes 25 mg = 1 Me moria 25 MG Oral 2-14 tab, PO, l Tablet 23:50: BID, # 60 Reece n [Topamax] 00 tab, 2 Refill(s), [facility] #[id number] topiramate 2020-0 Yes 25 mg = 1 Me moria 25 MG Oral 2-14 tab, PO, l Tablet 23:50: BID, # 60 Reece n [Topamax] 00 tab, 2 Refill(s), [email or web address][id number] topiramate 2020-0 Yes 25 mg = 1 Me moria 25 MG Oral 2-14 tab, PO, l Tablet 23:50: BID, # 60 [place] n [Topamax] 00 tab, 2 Refill(s), Pharmacy: [facility] #[id number] topiramate 2020-0 Yes 25 mg = 1 Me moria 25 MG Oral 2-14 tab, PO, l Tablet 23:50: BID, # 60 Reece n [Topamax] 00 tab, 2 Refill(s), Pharmacy: [facility] #[id number] topiramate 2020-0 Yes 25 mg = 1 Me moria 25 MG Oral 2-14 tab, PO, l Tablet 23:50: BID, # 60 [place] n [Topamax] 00 tab, 2 Refill(s), Pharmacy: [facility] #[id number] topiramate 2020-0 Yes 25 mg = 1 Me moria 25 MG Oral 2-14 tab, PO, l Tablet 23:50: BID, # 60 Reece n [Topamax] 00 tab, 2 Refill(s), Pharmacy: [facility] #[id number] topiramate 2020-0 Yes 25 mg = 1 Me moria 25 MG Oral 2-14 tab, PO, l Tablet 23:50: BID, # 60 Reece n [Topamax] 00 tab, 2 Refill(s), Pharmacy: [facility] #[id number] topiramate 2020-0 Yes 25 mg = 1 Me moria 25 MG Oral 2-14 tab, PO, l Tablet 23:50: BID, # 60 Re[place] n [Topamax] 00 tab, 2 Refill(s), Pharmacy: [facility] #[id number] topiramate 2020-0 Yes 25 mg = 1 Me moria 25 MG Oral 2-14 tab, PO, l Tablet 23:50: BID, # 60 Reece n [Topamax] 00 tab, 2 Refill(s), Pharmacy: [facility] #[id number] topiramate 2020-0 Yes 25 mg = 1 Me moria 25 MG Oral 2-14 tab, PO, l Tablet 23:50: BID, # 60 Reece n [Topamax] 00 tab, 2 Refill(s), Pharmacy: [facility] #[id number] topiramate 2020-0 Yes 25 mg = 1 Me moria 25 MG Oral 2-14 tab, PO, l Tablet 23:50: BID, # 60 Reece n [Topamax] 00 tab, 2 Refill(s), Pharmacy: [facility] #[id number] topiramate 2020-0 Yes 25 mg = 1 Me moria 25 MG Oral 2-14 tab, PO, l Tablet 23:50: BID, # 60 Reece n [Topamax] 00 tab, 2 Refill(s), Pharmacy: [facility] #[id number] topiramate 2020-0 Yes 25 mg = 1 Me moria 25 MG Oral 2-14 tab, PO, l Tablet 23:50: BID, # 60 Reece n [Topamax] 00 tab, 2 Refill(s), Pharmacy: [facility] #[id number] topiramate 2020-0 Yes 25 mg = 1 Me moria 25 MG Oral 2-14 tab, PO, l Tablet 23:50: BID, # 60 Reece n [Topamax] 00 tab, 2 Refill(s), Pharmacy: [facility] #[id number] topiramate 2020-0 Yes 25 mg = 1 Me moria 25 MG Oral 2-14 tab, PO, l Tablet 23:50: BID, # 60 Reece n [Topamax] 00 tab, 2 Refill(s), Pharmacy: [facility] #[id number] topiramate 2020-0 Yes 25 mg = 1 Me moria 25 MG Oral 2-14 tab, PO, l Tablet 23:50: BID, # 60 Reece n [Topamax] 00 tab, 2 Refill(s), Pharmacy: [facility] #[id number] topiramate 2020-0 Yes 25 mg = 1 Me moria 25 MG Oral 2-14 tab, PO, l Tablet 23:50: BID, # 60 Reece n [Topamax] 00 tab, 2 Refill(s), Pharmacy: [facility] #[id number] topiramate 2020-0 Yes 25 mg = 1 Me moria 25 MG Oral 2-14 tab, PO, l Tablet 23:50: BID, # 60 Reece n [Topamax] 00 tab, 2 Refill(s), Pharmacy: [facility] #[id number] topiramate 2020-0 Yes 25 mg = 1 Me moria 25 MG Oral 2-14 tab, PO, l Tablet 23:50: BID, # 60 Reece n [Topamax] 00 tab, 2 Refill(s), Pharmacy: [facility] #[id number] topiramate 2020-0 Yes 25 mg = 1 Me moria 25 MG Oral 2-14 tab, PO, l Tablet 23:50: BID, # 60 Re[place] n [Topamax] 00 tab, 2 Refill(s), Pharmacy: [facility] #[id number] topiramate 2020-0 Yes 25 mg = 1 Me moria 25 MG Oral 2-14 tab, PO, l Tablet 23:50: BID, # 60 Re[place] n [Topamax] 00 tab, 2 Refill(s), Pharmacy: [facility] #[id number] topiramate 2020-0 Yes 25 mg = 1 Me moria 25 MG Oral 2-14 tab, PO, l Tablet 23:50: BID, # 60 Reece n [Topamax] 00 tab, 2 Refill(s), Pharmacy: [facility] #[id number] topiramate 2020-0 Yes 25 mg = 1 Me moria 25 MG Oral 2-14 tab, PO, l Tablet 23:50: BID, # 60 Reece n [Topamax] 00 tab, 2 Refill(s), Pharmacy: [facility] #[id number] topiramate 2020-0 Yes 25 mg = 1 Me moria 25 MG Oral 2-14 tab, PO, l Tablet 23:50: BID, # 60 Reece n [Topamax] 00 tab, 2 Refill(s), Pharmacy: [facility] #[id number] topiramate 2020-0 Yes 25 mg = 1 Me moria 25 MG Oral 2-14 tab, PO, l Tablet 23:50: BID, # 60 Reece n [Topamax] 00 tab, 2 Refill(s), Pharmacy: [facility] #[id number] topiramate 2020-0 Yes 25 mg = 1 Me moria 25 MG Oral 2-14 tab, PO, l Tablet 23:50: BID, # 60 Reece n [Topamax] 00 tab, 2 Refill(s), Pharmacy: [facility] #[id number] topiramate 2020-0 Yes 25 mg = 1 Me moria 25 MG Oral 2-14 tab, PO, l Tablet 23:50: BID, # 60 Reece n [Topamax] 00 tab, 2 Refill(s), Pharmacy: [facility] #[id number] topiramate 2020-0 Yes 25 mg = 1 Me moria 25 MG Oral 2-14 tab, PO, l Tablet 23:50: BID, # 60 Reece n [Topamax] 00 tab, 2 Refill(s), Pharmacy: [facility] #[id number] topiramate 2020-0 Yes 25 mg = 1 Me moria 25 MG Oral 2-14 tab, PO, l Tablet 23:50: BID, # 60 Reece n [Topamax] 00 tab, 2 Refill(s), Pharmacy: [facility] #[id number] topiramate 2020-0 Yes 25 mg = 1 Me moria 25 MG Oral 2-14 tab, PO, l Tablet 23:50: BID, # 60 Reece n [Topamax] 00 tab, 2 Refill(s), Pharmacy: [facility] #[id number] topiramate 2020-0 Yes 25 mg = 1 Me moria 25 MG Oral 2-14 tab, PO, l Tablet 23:50: BID, # 60 Reece n [Topamax] 00 tab, 2 Refill(s), Pharmacy: [facility] #[id number] topiramate 2020-0 Yes 25 mg = 1 Me moria 25 MG Oral 2-14 tab, PO, l Tablet 23:50: BID, # 60 Reece n [Topamax] 00 tab, 2 Refill(s), Pharmacy: [facility] #[id number] topiramate 2020-0 Yes 25 mg = 1 Me moria 25 MG Oral 2-14 tab, PO, l Tablet 23:50: BID, # 60 Reece n [Topamax] 00 tab, 2 Refill(s), Pharmacy: [facility] #[id number] topiramate 2020-0 Yes 25 mg = 1 Me moria 25 MG Oral 2-14 tab, PO, l Tablet 23:50: BID, # 60 Reece n [Topamax] 00 tab, 2 Refill(s), Pharmacy: [facility] #[id number] topiramate 2020-0 Yes 25 mg = 1 Me moria 25 MG Oral 2-14 tab, PO, l Tablet 23:50: BID, # 60 Reece n [Topamax] 00 tab, 2 Refill(s), [email or web address] #[id number] topiramate 2020-0 Yes 25 mg = 1 Me moria 25 MG Oral 2-14 tab, PO, l Tablet 23:50: BID, # 60 Reece n [Topamax] 00 tab, 2 Refill(s), [email or web address] #[id number] Aspirin 81 2020-0 Yes 81 mg = [...] tab, PO, l Coated 23:31: Daily, # [place] Tablet 00 90 tab, 3 Refill(s) aspirin 81 2020-0 Yes 81 mg = 1 Me moria mg tablet, 12-06 tab, PO, l enteric 23:31: Daily, # Reece n coated 00 90 tab, 3 Refill(s) Aspirin 81 2020-0 Yes 81 mg = 1 Me moria MG Enteric 12-06 tab, PO, l Coated 23:31: Daily, # [place] Tablet 00 90 tab, 3 Refill(s) aspirin 81 2020-0 Yes 81 mg = 1 Me moria mg tablet, - tab, PO, l enteric 23:31: Daily, # [place]ece n coated 00 90 tab, 3 Refill(s) Aspirin 81 2020-0 Yes 81 mg = 1 Me moria MG Enteric 12-06 tab, PO, l Coated 23:31: Daily, # [place] Tablet 00 90 tab, 3 Refill(s) aspirin [...] n coated 00 90 tab, 3 Refill(s) aspirin 81 2020-0 Yes 81 mg = 1 Me moria mg tablet, 12-06 tab, PO, l enteric 23:31: Daily, # [place] n coated 00 90 tab, 3 Refill(s) Aspirin 81 2020-0 Yes 81 mg = 1 Me moria MG Enteric 12-06 tab, PO, l Coated 23:31: Daily, # [place] Tablet 00 90 tab, 3 Refill(s) aspirin [...] tab, PO, l Coated 23:31: Daily, # [place] Tablet 00 90 tab, 3 Refill(s) aspirin [...] tab, PO, l Coated 23:31: Daily, # [place] Tablet 00 90 tab, 3 Refill(s) aspirin [...] tab, PO, l Coated 23:31: Daily, # [place] Tablet 00 90 tab, 3 Refill(s) aspirin 81 2020-0 Yes 81 mg = 1 Me moria mg tablet, 12-06 tab, PO, l enteric 23:31: Daily, # [place] n coated 00 90 tab, 3 Refill(s) Aspirin 81 2020-0 Yes 81 mg = 1 Me moria MG Enteric 12-06 tab, PO, l Coated 23:31: Daily, # [place] Tablet 00 90 tab, 3 Refill(s) aspirin [...] tab, PO, l Coated 23:31: Daily, # [place] Tablet 00 90 tab, 3 Refill(s) aspirin 81 2020-0 Yes 81 mg = 1 Me moria mg tablet, 12-06 tab, PO, l enteric 23:31: Daily, # [place] n coated 00 90 tab, 3 Refill(s) Aspirin 81 2020-0 Yes 81 mg = 1 Me moria MG Enteric 12-06 tab, PO, l Coated 23:31: Daily, # [place] Tablet 00 90 tab, 3 Refill(s) aspirin 81 2020-0 Yes 81 mg = 1 Me moria mg tablet, 12-06 tab, PO, l enteric 23:31: Daily, # [place] coated 00 90 tab, 3 Refill(s) Aspirin 81 2020-0 Yes 81 mg = 1 Me moria MG Enteric 12-06 tab, PO, l Coated 23:31: Daily, # [place] Tablet 00 90 tab, 3 Refill(s) aspirin 81 2020-0 Yes 81 mg = 1 Me moria mg tablet, 12-06 tab, PO, l enteric 23:31: Daily, # [place] coated 00 90 tab, 3 Refill(s) Aspirin 81 2020-0 Yes 81 mg = 1 Me moria MG Enteric 12-06 tab, PO, l Coated 23:31: Daily, # [place] Tablet 00 90 tab, 3 Refill(s) aspirin 81 2020-0 Yes 81 mg = 1 Me moria mg tablet, 12-06 tab, PO, l enteric 23:31: Daily, # [place] n coated 00 90 tab, 3 Refill(s) Aspirin 81 2020-0 Yes 81 mg = 1 Me moria MG Enteric 12-06 tab, PO, l Coated 23:31: Daily, # [place] Tablet 00 90 tab, 3 Refill(s) aspirin [...] tab, PO, l Coated 23:31: Daily, # [place] Tablet 00 90 tab, 3 Refill(s) aspirin 81 2020-0 Yes 81 mg = 1 Me moria mg tablet, 12-06 tab, PO, l enteric 23:31: Daily, # [place] coated 00 90 tab, 3 Refill(s) Aspirin 81 2020-0 Yes 81 mg = 1 Me moria MG Enteric 12-06 tab, PO, l Coated 23:31: Daily, # [place] Tablet 00 90 tab, 3 Refill(s) aspirin [...] tab, PO, l Coated 23:31: Daily, # [place] Tablet 00 90 tab, 3 Refill(s) aspirin 81 2020-0 Yes 81 mg = 1 Me moria mg tablet, 12-06 tab, PO, l enteric 23:31: Daily, # [place] coated 00 90 tab, 3 Refill(s) Aspirin 81 2020-0 Yes 81 mg = 1 Me moria MG Enteric 12-06 tab, PO, l Coated 23:31: Daily, # [place] Tablet 00 90 tab, 3 Refill(s) aspirin 81 2020-0 Yes 81 mg = 1 Me moria mg tablet, 12-06 tab, PO, l enteric 23:31: Daily, # [place] coated 00 90 tab, 3 Refill(s) Aspirin 81 2020-0 Yes 81 mg = 1 Me moria MG Enteric 12-06 tab, PO, l Coated 23:31: Daily, # [place] Tablet 90 tab, 3 Refill(s) aspirin 81 2020-0 [...] tab, PO, l Coated 23:31: Daily, # [place] Tablet 00 90 tab, 3 Refill(s) aspirin 81 2020-0 Yes 81 mg = 1 Me moria mg tablet, 12-06 tab, PO, l enteric 23:31: Daily, # [place] coated 00 90 tab, 3 Refill(s) [...] 30 tab, 3 Refill(s), Pharmacy: [facility] #[id number] oxcarbazepi 2020-0 Yes 150 mg = 1 Memoria ne 150 MG 1-09 tab, PO, l Oral Tablet 23:05: Bedtime, # [place] [Trileptal] 00 30 tab, 3 Refill(s), Pharmacy: [facility] #[id number] oxcarbazepi 2020-0 Yes 150 mg = 1 Memoria ne 150 MG 1-09 tab, PO, l Oral Tablet 23:05: Bedtime, # [place] [Trileptal] 00 30 tab, 3 Refill(s), Pharmacy: [facility] #[id number] oxcarbazepi 2020-0 Yes 150 mg = 1 Memoria ne 150 MG 1-09 tab, PO, l Oral Tablet 23:05: Bedtime, # [place] [Trileptal] 00 30 tab, 3 Refill(s), Pharmacy: [facility] #[id number] oxcarbazepi 2020-0 Yes 150 mg = 1 Memoria ne 150 MG 1-09 tab, PO, l Oral Tablet 23:05: Bedtime, # [place] [Trileptal] 00 30 tab, 3 Refill(s), Pharmacy: [facility] #[id number] oxcarbazepi 2020-0 Yes 150 mg = 1 Memoria ne 150 MG 1-09 tab, PO, l Oral Tablet 23:05: Bedtime, # [place] [Trileptal] 00 30 tab, 3 Refill(s), Pharmacy: [facility] #[id number] oxcarbazepi 2020-0 Yes 150 mg = 1 Memoria ne 150 MG 1-09 tab, PO, l Oral Tablet 23:05: Bedtime, # [place] [Trileptal] 00 30 tab, 3 Refill(s), Pharmacy: [facility] #[id number] oxcarbazepi 2020-0 Yes 150 mg = 1 Memoria ne 150 MG 1-09 tab, PO, l Oral Tablet 23:05: Bedtime, # [place] [Trileptal] 00 30 tab, 3 Refill(s), Pharmacy: [facility] #[id number] oxcarbazepi 2020-0 Yes 150 mg = 1 Memoria ne 150 MG 1-09 tab, PO, l Oral Tablet 23:05: Bedtime, # [place] [Trileptal] 00 30 tab, 3 Refill(s), [id number] oxcarbazepi 2020-0 Yes 150 mg = 1 Memoria ne 150 MG 1-09 tab, PO, l Oral Tablet 23:05: Bedtime, # [place] [Trileptal] 00 30 tab, 3 Refill(s), [facility][id number] oxcarbazepi 2020-0 Yes 150 mg = 1 Memoria ne 150 MG 1-09 tab, PO, l Oral Tablet 23:05: Bedtime, # [place] [Trileptal] 00 30 tab, 3 Refill(s), [facility][id number] oxcarbazepi 2020-0 Yes 150 mg = 1 Memoria ne 150 MG 1-09 tab, PO, l Oral Tablet 23:05: Bedtime, # [place] [Trileptal] 00 30 tab, 3 Refill(s), [id number] oxcarbazepi 2020-0 Yes 150 mg = 1 Memoria ne 150 MG 1-09 tab, PO, l Oral Tablet 23:05: Bedtime, # [place] [Trileptal] 00 30 tab, 3 Refill(s), [facility][id number] oxcarbazepi 2020-0 Yes 150 mg = 1 Memoria ne 150 MG 1-09 tab, PO, l Oral Tablet 23:05: Bedtime, # [place] [Trileptal] 00 30 tab, 3 Refill(s), [facility][id number] oxcarbazepi 2020-0 Yes 150 mg = 1 Memoria ne 150 MG 1-09 tab, PO, l Oral Tablet 23:05: Bedtime, # [place] [Trileptal] 00 30 tab, 3 Refill(s), [facility][id number] oxcarbazepi 2020-0 Yes 150 mg = 1 Memoria ne 150 MG 1-09 tab, PO, l Oral Tablet 23:05: Bedtime, # [place] [Trileptal] 00 30 tab, 3 Refill(s), [facility][id number] oxcarbazepi 2020-0 Yes 150 mg = 1 Memoria ne 150 MG 1-09 tab, PO, l Oral Tablet 23:05: Bedtime, # [place] [Trileptal] 00 30 tab, 3 Refill(s), Pharmacy: [facility] #[id number] oxcarbazepi 2020-0 Yes 150 mg = 1 Memoria ne 150 MG 1-09 tab, PO, l Oral Tablet 23:05: Bedtime, # [place] [Trileptal] 00 30 tab, 3 Refill(s), Pharmacy: [facility] #[id number] oxcarbazepi 2020-0 Yes 150 mg = 1 Memoria ne 150 MG 1-09 tab, PO, l Oral Tablet 23:05: Bedtime, # [place] [Trileptal] 00 30 tab, 3 Refill(s), Pharmacy: [facility] #[id number] oxcarbazepi 2020-0 Yes 150 mg = 1 Memoria ne 150 MG 1-09 tab, PO, l Oral Tablet 23:05: Bedtime, # [place] [Trileptal] 00 30 tab, 3 Refill(s), Pharmacy: [facility] #[id number] oxcarbazepi 2020-0 Yes 150 mg = 1 Memoria ne 150 MG 1-09 tab, PO, l Oral Tablet 23:05: Bedtime, # [place] [Trileptal] 00 30 tab, 3 Refill(s), Pharmacy: [facility] #[id number] oxcarbazepi 2020-0 Yes 150 mg = 1 Memoria ne 150 MG 1-09 tab, PO, l Oral Tablet 23:05: Bedtime, # [place] [Trileptal] 00 30 tab, 3 Refill(s), Pharmacy: [facility] #[id number] oxcarbazepi 2020-0 Yes 150 mg = 1 Memoria ne 150 MG 1-09 tab, PO, l Oral Tablet 23:05: Bedtime, # [place] [Trileptal] 00 30 tab, 3 Refill(s), Pharmacy: [facility] #[id number] oxcarbazepi 2020-0 Yes 150 mg = 1 Memoria ne 150 MG 1-09 tab, PO, l Oral Tablet 23:05: Bedtime, # [place] [Trileptal] 00 30 tab, 3 Refill(s), Pharmacy: [facility] #[id number] oxcarbazepi 2020-0 Yes 150 mg = 1 Memoria ne 150 MG 1-09 tab, PO, l Oral Tablet 23:05: Bedtime, # [place] [Trileptal] 00 30 tab, 3 Refill(s), Pharmacy: [facility] #[id number] oxcarbazepi 2020-0 Yes 150 mg = 1 Memoria ne 150 MG 1-09 tab, PO, l Oral Tablet 23:05: Bedtime, # [place] [Trileptal] 00 30 tab, 3 Refill(s), Pharmacy: [facility] #[id number] oxcarbazepi 2020-0 Yes 150 mg = 1 Memoria ne 150 MG 1-09 tab, PO, l Oral Tablet 23:05: Bedtime, # [place] [Trileptal] 00 30 tab, 3 Refill(s), Pharmacy: [facility] #[id number] oxcarbazepi 2020-0 Yes 150 mg = 1 Memoria ne 150 MG 1-09 tab, PO, l Oral Tablet 23:05: Bedtime, # [place] [Trileptal] 00 30 tab, 3 Refill(s), Pharmacy: [facility] #[id number] oxcarbazepi 2020-0 Yes 150 mg = 1 Memoria ne 150 MG 1-09 tab, PO, l Oral Tablet 23:05: Bedtime, # [place] [Trileptal] 00 30 tab, 3 Refill(s), Pharmacy: [facility] #[id number] oxcarbazepi 2020-0 Yes 150 mg = 1 Memoria ne 150 MG 1-09 tab, PO, l Oral Tablet 23:05: Bedtime, # [place] [Trileptal] 00 30 tab, 3 Refill(s), Pharmacy: [facility] #[id number] oxcarbazepi 2020-0 Yes 150 mg = 1 Memoria ne 150 MG 1-09 tab, PO, l Oral Tablet 23:05: Bedtime, # [place] [Trileptal] 00 30 tab, 3 Refill(s), Pharmacy: [facility] #[id number] oxcarbazepi 2020-0 Yes 150 mg = 1 Memoria ne 150 MG 1-09 tab, PO, l Oral Tablet 23:05: Bedtime, # [place] [Trileptal] 00 30 tab, 3 Refill(s), Pharmacy: [facility] #[id number] oxcarbazepi 2020-0 Yes 150 mg = 1 Memoria ne 150 MG 1-09 tab, PO, l Oral Tablet 23:05: Bedtime, # [place] [Trileptal] 00 30 tab, 3 Refill(s), Pharmacy: [facility] #[id number] oxcarbazepi 2020-0 Yes 150 mg = 1 Memoria ne 150 MG 1-09 tab, PO, l Oral Tablet 23:05: Bedtime, # [place] [Trileptal] 00 30 tab, 3 Refill(s), Pharmacy: [facility] #[id number] oxcarbazepi 2020-0 Yes 150 mg = 1 Memoria ne 150 MG 1-09 tab, PO, l Oral Tablet 23:05: Bedtime, # [place] [Trileptal] 00 30 tab, 3 Refill(s), Pharmacy: [facility] #[id number] oxcarbazepi 2020-0 Yes 150 mg = 1 Memoria ne 150 MG 1-09 tab, PO, l Oral Tablet 23:05: Bedtime, # [place] [Trileptal] 00 30 tab, 3 Refill(s), Pharmacy: [facility] #[id number] oxcarbazepi 2020-0 Yes 150 mg = 1 Memoria ne 150 MG 1-09 tab, PO, l Oral Tablet 23:05: Bedtime, # [place] [Trileptal] 00 30 tab, 3 Refill(s), Pharmacy: [facility] #[id number] atorvasBroadSoft 2018-11 Yes 40 mg = 1 M emoria n 40 mg 2-11 tab, PO, l oral tablet 23:32: Daily, # [place] 39 30 tab, 2 Refill(s), Pharmacy: [facility] #[id number] atorvasBroadSoft 2018-11 Yes 40 mg = 1 M emoria n 40 mg 2-11 tab, PO, l oral tablet 23:32: Daily, # [place] 39 30 tab, 2 Refill(s), Pharmacy: [facility] #[id number] atorvasta 2018-11 Yes 40 mg = 1 M emoria n 40 mg 2-11 tab, PO, l oral tablet 23:32: Daily, # [place] 39 30 tab, 2 Refill(s), Pharmacy: [facility] #[id number] Prelert 2018-11 Yes 40 mg = 1 M emoria n 40 mg 2-11 tab, PO, l oral tablet 23:32: Daily, # [place] 39 30 tab, 2 Refill(s), Pharmacy: [facility][id number] [facility] Yes 40 mg = 1 M emoria n 40 mg 2-11 tab, PO, l oral tablet 23:32: Daily, # He rmann 39 30 tab, 2 Refill(s), Pharmacy: [facility][id number] [facility] Yes 40 mg = 1 M emoria n 40 mg 2-11 tab, PO, l oral tablet 23:32: Daily, # He rmann 39 30 tab, 2 Refill(s), Pharmacy: [facility] [place] #[id number] Prelert 2018-11 Yes 40 mg = 1 M emoria n 40 mg 2-11 tab, PO, l oral tablet 23:32: Daily, # He rmann 39 30 tab, 2 Refill(s), Pharmacy: [facility] #[id number] Prelert 2018-11 Yes 40 mg = 1 M emoria n 40 mg 2-11 tab, PO, l oral tablet 23:32: Daily, # He rmann 39 30 tab, 2 Refill(s), Pharmacy: [facility] #[id number] Prelert 2018-11 Yes 40 mg = 1 M emoria n 40 mg 2-11 tab, PO, l oral tablet 23:32: Daily, # He rmann 39 30 tab, 2 Refill(s), Pharmacy: [facility] #[id number] Prelert 2018-11 Yes 40 mg = 1 M emoria n 40 mg 2-11 tab, PO, l oral tablet 23:32: Daily, # He rmann 39 30 tab, 2 Refill(s), Pharmacy: [facility] #[id number] Prelert 2018-11 Yes 40 mg = 1 M emoria n 40 mg 2-11 tab, PO, l oral tablet 23:32: Daily, # He rmann 39 30 tab, 2 Refill(s), [id number] Prelert 2018-11 Yes 40 mg = 1 M emoria n 40 mg 2-11 tab, PO, l oral tablet 23:32: Daily, # He rmann 39 30 tab, 2 Refill(s), [id number] Prelert 2018-11 Yes 40 mg = 1 M emoria n 40 mg 2-11 tab, PO, l oral tablet 23:32: Daily, # He rmann 39 30 tab, 2 Refill(s), [id number] Prelert 2018-11 Yes 40 mg = 1 M emoria n 40 mg 2-11 tab, PO, l oral tablet 23:32: Daily, # He rmann 39 30 tab, 2 Refill(s), [id number] Prelert 2018-11 Yes 40 mg = 1 M emoria n 40 mg 2-11 tab, PO, l oral tablet 23:32: Daily, # He rmann 39 30 tab, 2 Refill(s), [id number] Prelert 2018-11 Yes 40 mg = 1 M emoria n 40 mg 2-11 tab, PO, l oral tablet 23:32: Daily, # He rmann 39 30 tab, 2 Refill(s), [id number] Prelert 2018-11 Yes 40 mg = 1 M emoria n 40 mg 2-11 tab, PO, l oral tablet 23:32: Daily, # He rmann 39 30 tab, 2 Refill(s), [facility][id number] Prelert 2018-11 Yes 40 mg = 1 M emoria n 40 mg 2-11 tab, PO, l oral tablet 23:32: Daily, # He rmann 39 30 tab, 2 Refill(s), [facility][id number] Prelert 2018-11 Yes 40 mg = 1 M emoria n 40 mg 2-11 tab, PO, l oral tablet 23:32: Daily, # He rmann 39 30 tab, 2 Refill(s), Pharmacy: [facility] #[id number] Prelert 2018-11 Yes 40 mg = 1 M emoria n 40 mg 2-11 tab, PO, l oral tablet 23:32: Daily, # He rmann 39 30 tab, 2 Refill(s), Pharmacy: [facility] [place] #[id number] Prelert 2018-11 Yes 40 mg = 1 M emoria n 40 mg 2-11 tab, PO, l oral tablet 23:32: Daily, # He rmann 39 30 tab, 2 Refill(s), Pharmacy: [facility] #[id number] Prelert 2018-11 Yes 40 mg = 1 M emoria n 40 mg 2-11 tab, PO, l oral tablet 23:32: Daily, # He rmann 39 30 tab, 2 Refill(s), Pharmacy: [facility] [place] #[id number] Prelert 2018-11 Yes 40 mg = 1 M emoria n 40 mg 2-11 tab, PO, l oral tablet 23:32: Daily, # Brendon rmann 39 30 tab, 2 Refill(s), Pharmacy: [facility] [place] #[id number] Prelert 2018-11 Yes 40 mg = 1 M emoria n 40 mg 2-11 tab, PO, l oral tablet 23:32: Daily, # Brendon rmann 39 30 tab, 2 Refill(s), Pharmacy: [facility] [place] #[id number] Prelert 2018-11 Yes 40 mg = 1 M emoria n 40 mg 2-11 tab, PO, l oral tablet 23:32: Daily, # Brendon rmann 39 30 tab, 2 Refill(s), Pharmacy: [facility] [place] #[id number] Prelert 2018-11 Yes 40 mg = 1 M emoria n 40 mg 2-11 tab, PO, l oral tablet 23:32: Daily, # He rmann 39 30 tab, 2 Refill(s), Pharmacy: [facility] #[id number] Prelert 2018-11 Yes 40 mg = 1 M emoria n 40 mg 2-11 tab, PO, l oral tablet 23:32: Daily, # He rmann 39 30 tab, 2 Refill(s), Pharmacy: [facility] [place] #[id number] Prelert 2018-11 Yes 40 mg = 1 M emoria n 40 mg 2-11 tab, PO, l oral tablet 23:32: Daily, # He rmann 39 30 tab, 2 Refill(s), Pharmacy: [facility] [place] #[id number] Prelert 2018-11 Yes 40 mg = 1 M emoria n 40 mg 2-11 tab, PO, l oral tablet 23:32: Daily, # He rmann 39 30 tab, 2 Refill(s), Pharmacy: [facility] [place] [facility][id number] [facility] Yes 40 mg = 1 M emoria n 40 mg 2-11 tab, PO, l oral tablet 23:32: Daily, # He rmann 39 30 tab, 2 Refill(s), Pharmacy: [facility] [place] #[id number] Prelert 2018-11 Yes 40 mg = 1 M emoria n 40 mg 2-11 tab, PO, l oral tablet 23:32: Daily, # He rmann 39 30 tab, 2 Refill(s), Pharmacy: [facility] [place] #[id number] Prelert 2018-11 Yes 40 mg = 1 M emoria n 40 mg 2-11 tab, PO, l oral tablet 23:32: Daily, # He rmann 39 30 tab, 2 Refill(s), Pharmacy: [facility] [place] #[id number] Prelert 2018-11 Yes 40 mg = 1 M emoria n 40 mg 2-11 tab, PO, l oral tablet 23:32: Daily, # He rmann 39 30 tab, 2 Refill(s), Pharmacy: [facility] [place] #[id number] Prelert 2018-11 Yes 40 mg = 1 M emoria n 40 mg 2-11 tab, PO, l oral tablet 23:32: Daily, # He rmann 39 30 tab, 2 Refill(s), Pharmacy: [facility] [place] #[id number] Prelert 2018-11 Yes 40 mg = 1 M emoria n 40 mg 2-11 tab, PO, l oral tablet 23:32: Daily, # He rmann 39 30 tab, 2 Refill(s), Pharmacy: [facility] [place] #[id number] atorvastati 2018-11 Yes 40 mg = 1 M emoria n 40 mg 2-11 tab, PO, l oral tablet 23:32: Daily, # Brendon rmann 39 30 tab, 2 Refill(s), Pharmacy: [facility] #[id number] atorvastati 2018-11 Yes 40 mg = 1 M emoria n 40 mg 2-11 tab, PO, l oral tablet 23:32: Daily, # Brendon rmann 39 30 tab, 2 Refill(s), Pharmacy: [facility] #[id number] dexlansopra 2018-11 Yes 60mg Take 60 mg [...] gram 11:55: Hospita tablet 03 l dexlansopra 2018- Yes 60mg Take 60 mg [facility] z[facility] [...] gram 11:55: Hospita tablet 03 l dexlansopra 2018- Yes 60mg Take 60 mg [facility] zole [...] for l sleep. gabapentin 2018-11 Yes 600mg Q.[id number] Take 600 [facility] (NEURONTIN) 2-10 [id number] mg by s t 600 mg 11:46: [...] for l sleep. gabapentin 2018-11 Yes 600mg Q.37373288 Take 600 [facility] (NEURONTIN) 2-10 [id number] mg by s t 600 mg 11:46: [...] for l sleep. gabapentin 2018-11 Yes 600mg Q.[id number] Take 600 [facility] (NEURONTIN) 2-10 [id number] mg by s t 600 mg 11:46: [...] for l sleep. gabapentin 2018-11 Yes 600mg Q.88101478 Take 600 [facility] (NEURONTIN) 2-10 [id number] mg by s t 600 mg 11:46: [...] for l sleep. gabapentin 2018-11 Yes 600mg Q.44065841 Take 600 [facility] (NEURONTIN) 2-10 [id number] mg by s t 600 mg 11:46: [...] for l sleep. gabapentin 2018-11 Yes 600mg Q.54241672 Take 600 [facility] (NEURONTIN) 2-10 [id number] mg by s t 600 mg 11:46: [...] for l sleep. gabapentin 2018-11 Yes 600mg Q.89598129 Take 600 [facility] (NEURONTIN) 2-10 [id number] mg by s t 600 mg 11:46: [...] for l sleep. gabapentin 2018-11 Yes 600mg Q.90103025 Take 600 [facility] (NEURONTIN) 2-10 [id number] mg by s t 600 mg 11:46: [...] for l sleep. gabapentin 2018-11 Yes 600mg Q.05467467 Take 600 [facility] (NEURONTIN) 2-10 [id number] mg by s t 600 mg 11:46: [...] for l sleep. gabapentin 2018-11 Yes 600mg Q.53291964 Take 600 [facility] (NEURONTIN) 2-10 [id number] mg by s t 600 mg 11:46: [...] for l sleep. gabapentin 2018-11 Yes 600mg Q.94617826 Take 600 [facility] (NEURONTIN) 2-10 [id number] mg by s t 600 mg 11:46: [...] for l sleep. gabapentin 2018-11 Yes 600mg Q.14321895 Take 600 [facility] (NEURONTIN) 2-10 [id number] mg by s t 600 mg 11:46: [...] for l sleep. gabapentin 2018-11 Yes 600mg Q.19263467 Take 600 [facility] (NEURONTIN) 2-10 [id number] mg by s t 600 mg 11:46: [...] for l sleep. gabapentin 2018-11 Yes 600mg Q.31702846 Take 600 [facility] (NEURONTIN) 2-10 [id number] mg by s t 600 mg 11:46: [...] 4mg Take [address] [facility] (ZANAFLEX) 118 spasm by mouth Luke s 4 MG tablet 17:29: every 8 Med ical 52 (eight) Center hours as needed. morphine 2018-11 Yes 15mg Take [address] [facility] (MS CONTIN) 1-18 by mouth Luke s 15 MG 12 hr 17:29: every 12 Me dical tablet 52 (twelve) Center hours. lidocaine 2018-11 Yes 3{patch Q24H Place [address] (LIDODERM) -18 } patches [facility] 5 % patch 17:29: onto the [facility]i [facility] 52 skin daily Center 12 hours on 12 hours off . gabapentin 2018-11 Yes 600mg Q.62188631 Take [address] [facility] (NEURONTIN) 1-18 [id number] mg by L ukes 600 MG 17:29: [...] MG tablet 17:29: every Medical 52 morning. [place] dexlansopra 2018-11 Yes 60mg QD Take 60 [...] [facility] 5 % patch 17:29: onto the [facility] 52 skin daily Center 12 hours on 12 hours off . gabapentin 2018-11 Yes 600mg Q.39685455 Take [address] [facility] [address] (NEURONTIN) 1-18 [id number] mg by L ukes 600 MG 17:29: [...] MG tablet 17:29: every Medical 52 morning. [place] dexlansopra 2018-11 Yes 60mg QD Take 60 [...] hours off . gabapentin 2018-11 Yes 600mg Q.26659983 Take [address] (NEURONTIN) 1-18 [id number] mg by L ukes 600 MG 17:29: [...] MG tablet 17:29: every Medical 52 morning. [place] dexlansopra 2018-11 Yes 60mg QD Take 60 [...] MG tablet 17:29: daily. Medica l 52 [place] hydrOXYzine 2018-11 Yes 25mg Q.5D Take 25 [...] hours off . gabapentin 2018-11 Yes 600mg Q.12483824 Take [address] (NEURONTIN) 1-18 [id number] mg by L ukes 600 MG 17:29: 3D mouth 3 Medical tablet 52 (three) Center times daily. zolpidem 2018-11 Yes 5mg QD Take [address] [facility] (AMBIEN) 5 1-18 by mouth [facility] MG tablet 17:29: nightly Medic al 52 Every Center night at bedtime . propranolol 2018- Yes 1{tbl} QD Take 1 [facility] [...] hours off . gabapentin 2018-11 Yes 600mg Q.28976613 Take [address] (NEURONTIN) 1-18 [id number] mg by L ukes 600 MG 17:29: [...] MG tablet 17:29: every Medical 52 morning. [place] dexlansopra 2018-11 Yes 60mg QD Take 60 [...] hours off . gabapentin 2018-11 Yes 600mg Q.60658969 Take [address] (NEURONTIN) 1-18 [id number] mg by L ukes 600 MG 17:29: [...] MG tablet 17:29: every Medical 52 morning. [place] dexlansopra 2018-11 Yes 60mg QD Take 60 [...] hours off . gabapentin 2018-11 Yes 600mg Q.41643949 Take [address] (NEURONTIN) 1-18 [id number] mg by L ukes 600 MG 17:29: [...] hours off . gabapentin 2018-11 Yes 600mg Q.87460610 Take [address] (NEURONTIN) 1-18 [id number] mg by L ukes 600 MG 17:29: [...] hours off . gabapentin 2018-11 Yes 600mg Q.54048411 Take [address] (NEURONTIN) 1-18 [id number] mg by L ukes 600 MG 17:29: [...] hours off . gabapentin 2018-11 Yes 600mg Q.27234787 Take [address] (NEURONTIN) 1-18 [id number] mg by L ukes 600 MG 17:29: [...] MG tablet 17:29: every Medical 52 morning. [place] dexlansopra 2018-11 Yes 60mg QD Take 60 [...] hours off . gabapentin 2018-11 Yes 600mg Q.32690747 Take [address] (NEURONTIN) 1-18 [id number] mg by L ukes 600 MG 17:29: [...] hours off . gabapentin 2018-11 Yes 600mg Q.15581428 Take [address] (NEURONTIN) 1-18 [id number] mg by L ukes 600 MG 17:29: [...] MG tablet 17:29: every Medical 52 morning. [place] dexlansopra 2018-11 Yes 60mg QD Take 60 [...] hours off . gabapentin 2018-11 Yes 600mg Q.00943739 Take [address] (NEURONTIN) 1-18 [id number] mg by L ukes 600 MG 17:29: [...] IN OU BID st 0.1 % 00:00: [facility]osp[facility] ophthalmic ITCHING l solution FLUoxetine 2018-11 Yes 40mg QD Take 40 mg M [facility]i (PROzac) 40 0-[address] MG capsule 00:00: daily. Hospi l FLUoxetine 2018-11 Yes 40mg QD Take 40 mg [facility] (PROzac) 40 0-[address] MG capsule 00:00: daily. Hospi l FLUoxetine 2018-11 Yes 40mg QD Take 40 mg [facility] (PROzac) 40 0-[address] MG capsule 00:00: daily. Hospi l FLUoxetine 2018-11 Yes 40mg QD Take 40 mg [facility] (PROzac) 40 0-[address] MG capsule 00:00: daily. Hospi l FLUoxetine 2018-11 Yes 40mg QD Take 40 mg [facility] (PROzac) 40 0-[address] MG capsule 00:00: daily. Hospi l FLUoxetine 2018-11 Yes 40mg QD Take 40 mg [facility] (PROzac) 40 0-[address] MG capsule 00:00: daily. Hospi l FLUoxetine 2018-11 Yes 40mg QD Take 40 mg [facility] (PROzac) 40 0-[address] MG capsule 00:00: daily. Hospi l FLUoxetine 2018-11 Yes 40mg QD Take 40 mg [facility] (PROzac) 40 0-[address] MG capsule 00:00: daily. Hospi l FLUoxetine 2018-11 Yes 40mg QD Take 40 mg [facility] (PROzac) 40 0-[address] MG capsule 00:00: daily. Hospi ta l FLUoxetine 2018-11 Yes 40mg QD Take 40 mg [facility] (PROzac) 40 0-[address] MG capsule 00:00: daily. Hospi l FLUoxetine 2018-11 Yes 40mg QD Take 40 mg [facility] (PROzac) 40 0-[address] MG capsule 00:00: daily. Hospi l FLUoxetine 2018-11 Yes 40mg QD Take 40 mg [facility] (PROzac) 40 0-[address] MG capsule 00:00: daily. Hospi l FLUoxetine 2018-11 Yes 40mg QD Take 40 mg [facility] (PROzac) 40 0-[address] MG capsule 00:00: daily. Hospi l FLUoxetine 2018-11 Yes 40mg QD Take 40 mg [facility] (PROzac) 40 0-[address] [facility] Yes 5mg Take 5 mg [facility] (NORVASC) 5 0-[address] mg tablet 00:00: as needed. spita l amLODIPine 2018-11 Yes 5mg Take 5 mg [facility] (NORVASC) 5 0-[address] mg tablet 00:00: as needed. spita l amLODIPine 2018-11 Yes 5mg Take 5 mg [facility] (NORVASC) 5 0-[address] mg tablet 00:00: as needed. spita l amLODIPine 2018-11 Yes 5mg Take 5 mg [facility] (NORVASC) 5 0-[address] mg tablet 00:00: as needed. spita l amLODIPine 2018-11 Yes 5mg Take 5 mg [facility] (NORVASC) 5 0-[address] mg tablet 00:00: as needed. spita l amLODIPine 2018-11 Yes 5mg Take 5 mg [facility] (NORVASC) 5 0-[address] mg tablet 00:00: as needed. spita l amLODIPine 2018-11 Yes 5mg Take 5 mg [facility] (NORVASC) 5 0-[address] mg tablet 00:00: as needed. spita l amLODIPine 2018-11 Yes 5mg Take 5 mg [facility] (NORVASC) 5 0-[address] mg tablet 00:00: as needed. Ho spita l amLODIPine 2018-11 Yes 5mg Take 5 mg [facility] (NORVASC) 5 0-[address] mg tablet 00:00: as needed. spita l amLODIPine 2018-11 Yes 5mg Take 5 mg [facility] (NORVASC) 5 0-[address] mg tablet 00:00: as needed. spita l amLODIPine 2018-11 Yes 5mg Take 5 mg [facility] (NORVASC) 5 0-[address] mg tablet 00:00: as needed. spita l amLODIPine 2018-11 Yes 5mg Take 5 mg [facility] (NORVASC) 5 0-[address] mg tablet 00:00: as needed. spita l amLODIPine 2018-11 Yes 5mg Take 5 mg [facility] (NORVASC) 5 0-[address] mg tablet 00:00: as needed. spita l amLODIPine 2018-11 Yes 5mg Take 5 mg [facility] (NORVASC) 5 0-[address] mg tablet 00:00: as needed. spita l topiramate 2018-11 Yes 25 mg = 1 Me moria 25 MG Oral 0-23 tab, PO, l Tablet 18:40: BID, # 60 Reece n [Topamax] 02 tab, 2 Refill(s), Pharmacy: [facility] #[id number] topiramate 2018-11 Yes 25 mg = 1 Me moria 25 MG Oral 0-23 tab, PO, l Tablet 18:40: BID, # 60 Reece n [Topamax] 02 tab, 2 Refill(s), Pharmacy: [facility] #[id number] topiramate 2018-11 Yes 25 mg = 1 Me moria 25 MG Oral 0-23 tab, PO, l Tablet 18:40: BID, # 60 Reece n [Topamax] 02 tab, 2 Refill(s), Pharmacy: [facility] #[id number] topiramate 2018-11 Yes 25 mg = 1 Me moria 25 MG Oral 0-23 tab, PO, l Tablet 18:40: BID, # 60 Reece n [Topamax] 02 tab, 2 Refill(s), Pharmacy: [facility] #[id number] topiramate 2018-11 Yes 25 mg = 1 Me moria 25 MG Oral 0-23 tab, PO, l Tablet 18:40: BID, # 60 Reece n [Topamax] 02 tab, 2 Refill(s), Pharmacy: [facility] #[id number] topiramate 2018-11 Yes 25 mg = 1 Me moria 25 MG Oral 0-23 tab, PO, l Tablet 18:40: BID, # 60 Reece n [Topamax] 02 tab, 2 Refill(s), Pharmacy: [facility] #[id number] topiramate 2018-11 Yes 25 mg = 1 Me moria 25 MG Oral 0-23 tab, PO, l Tablet 18:40: BID, # 60 Reece n [Topamax] 02 tab, 2 Refill(s), Pharmacy: [facility] #[id number] topiramate 2018-11 Yes 25 mg = 1 Me moria 25 MG Oral 0-23 tab, PO, l Tablet 18:40: BID, # 60 Reece n [Topamax] 02 tab, 2 Refill(s), Pharmacy: [facility] #[id number] topiramate 2018-11 Yes 25 mg = 1 Me moria 25 MG Oral 0-23 tab, PO, l Tablet 18:40: BID, # 60 Reece n [Topamax] 02 tab, 2 Refill(s), Pharmacy: [facility] #[id number] topiramate 2018-11 Yes 25 mg = 1 Me moria 25 MG Oral 0-23 tab, PO, l Tablet 18:40: BID, # 60 Reece n [Topamax] 02 tab, 2 Refill(s), Pharmacy: [facility] #[id number] topiramate 2018-11 Yes 25 mg = 1 Me moria 25 MG Oral 0-23 tab, PO, l Tablet 18:40: BID, # 60 Reece n [Topamax] 02 tab, 2 Refill(s), Pharmacy: [facility] #[id number] topiramate 2018-11 Yes 25 mg = 1 Me moria 25 MG Oral 0-23 tab, PO, l Tablet 18:40: BID, # 60 Reece n [Topamax] 02 tab, 2 Refill(s), Pharmacy: [facility] #[id number] topiramate 2018-11 Yes 25 mg = 1 Me moria 25 MG Oral 0-23 tab, PO, l Tablet 18:40: BID, # 60 Reece n [Topamax] 02 tab, 2 Refill(s), Pharmacy: [facility] #[id number] topiramate 2018-11 Yes 25 mg = 1 Me moria 25 MG Oral 0-23 tab, PO, l Tablet 18:40: BID, # 60 Reece n [Topamax] 02 tab, 2 Refill(s), Pharmacy: [facility] #[id number] topiramate 2018-11 Yes 25 mg = 1 Me moria 25 MG Oral 0-23 tab, PO, l Tablet 18:40: BID, # 60 Reece n [Topamax] 02 tab, 2 Refill(s), Pharmacy: [facility] #[id number] topiramate 2018-11 Yes 25 mg = 1 Me moria 25 MG Oral 0-23 tab, PO, l Tablet 18:40: BID, # 60 Reece n [Topamax] 02 tab, 2 Refill(s), Pharmacy: [facility] #[id number] topiramate 2018-11 Yes 25 mg = 1 Me moria 25 MG Oral 0-23 tab, PO, l Tablet 18:40: BID, # 60 Reece n [Topamax] 02 tab, 2 Refill(s), Pharmacy: [facility] #[id number] topiramate 2018-11 Yes 25 mg = 1 Me moria 25 MG Oral 0-23 tab, PO, l Tablet 18:40: BID, # 60 Reece n [Topamax] 02 tab, 2 Refill(s), Pharmacy: [facility] #[id number] topiramate 2018- Yes 25 mg = 1 Me moria 25 MG Oral 0-23 tab, PO, l Tablet 18:40: BID, # 60 Reece n [Topamax] 02 tab, 2 Refill(s), Pharmacy: [facility] #[id number] topiramate 2018-11 Yes 25 mg = 1 Me moria 25 MG Oral 0-23 tab, PO, l Tablet 18:40: BID, # 60 Reece n [Topamax] 02 tab, 2 Refill(s), Pharmacy: [facility] #[id number] topiramate 2018-11 Yes 25 mg = 1 Me moria 25 MG Oral 0-23 tab, PO, l Tablet 18:40: BID, # 60 Reece n [Topamax] 02 tab, 2 Refill(s), Pharmacy: [facility] #[id number] topiramate 2018-11 Yes 25 mg = 1 Me moria 25 MG Oral 0-23 tab, PO, l Tablet 18:40: BID, # 60 Reece n [Topamax] 02 tab, 2 Refill(s), Pharmacy: [facility] #[id number] topiramate 2018-11 Yes 25 mg = 1 Me moria 25 MG Oral 0-23 tab, PO, l Tablet 18:40: BID, # 60 Reece n [Topamax] 02 tab, 2 Refill(s), Pharmacy: [facility] #[id number] topiramate 2018-11 Yes 25 mg = 1 Me moria 25 MG Oral 0-23 tab, PO, l Tablet 18:40: BID, # 60 Reece n [Topamax] 02 tab, 2 Refill(s), Pharmacy: [facility] #[id number] topiramate 2018-11 Yes 25 mg = 1 Me moria 25 MG Oral 0-23 tab, PO, l Tablet 18:40: BID, # 60 Reece n [Topamax] 02 tab, 2 Refill(s), Pharmacy: [facility] #[id number] topiramate 2018-11 Yes 25 mg = 1 Me moria 25 MG Oral 0-23 tab, PO, l Tablet 18:40: BID, # 60 Reece n [Topamax] 02 tab, 2 Refill(s), Pharmacy: [facility] #[id number] topiramate 2018-11 Yes 25 mg = 1 Me moria 25 MG Oral 0-23 tab, PO, l Tablet 18:40: BID, # 60 Reece n [Topamax] 02 tab, 2 Refill(s), Pharmacy: [facility] #[id number] topiramate 2018-11 Yes 25 mg = 1 Me moria 25 MG Oral 0-23 tab, PO, l Tablet 18:40: BID, # 60 Reece n [Topamax] 02 tab, 2 Refill(s), Pharmacy: [facility] [place], [place] [address]iramate 2018-11 Yes 25 mg = 1 Me moria 25 MG Oral 0-23 tab, PO, l Tablet 18:40: BID, # 60 Reece n [Topamax] 02 tab, 2 Refill(s), Pharmacy: [facility] [place], [place] [address]iramate 2018-11 Yes 25 mg = 1 Me moria 25 MG Oral 0-23 tab, PO, l Tablet 18:40: BID, # 60 Reece n [Topamax] 02 tab, 2 Refill(s), Pharmacy: [facility] [place], [place] [address]mate 2018-11 Yes 25 mg = 1 Me moria 25 MG Oral 0-23 tab, PO, l Tablet 18:40: BID, # 60 Reece n [Topamax] 02 tab, 2 Refill(s), Pharmacy: [facility] [place], [place] [address]mate 2018-11 Yes 25 mg = 1 Me moria 25 MG Oral 0-23 tab, PO, l Tablet 18:40: BID, # 60 Reece n [Topamax] 02 tab, 2 Refill(s), Pharmacy: [facility] [place], [place] [address]mate 2018-11 Yes 25 mg = 1 Me moria 25 MG Oral 0-23 tab, PO, l Tablet 18:40: BID, # 60 Reece n [Topamax] 02 tab, 2 Refill(s), Pharmacy: [facility] #[id number] topmcfarlandmate 2018-11 Yes 25 mg = 1 Me moria 25 MG Oral 0-23 tab, PO, l Tablet 18:40: BID, # 60 Reece n [Topamax] 02 tab, 2 Refill(s), Pharmacy: [facility] #[id number] topiramate 2018-11 Yes 25 mg = 1 Me moria 25 MG Oral 0-23 tab, PO, l Tablet 18:40: BID, # 60 Reece n [Topamax] 02 tab, 2 Refill(s), Pharmacy: [facility] #[address] [place], [place] [address]iramate 2018-11 Yes 25 mg = 1 Me moria 25 MG Oral 0-23 tab, PO, l Tablet 18:40: BID, # 60 Reece n [Topamax] 02 tab, 2 Refill(s), Pharmacy: [facility] #[id number] topiramate 2019-1 Yes 25 mg = 1 Me moria 25 MG Oral 0-23 tab, PO, l Tablet 18:40: BID, # 60 Reece n [Topamax] 02 tab, 2 Refill(s), Pharmacy: [facility] #[id number] topiramate 2019-0 Yes 25 mg = 1 Me moria 25 MG Oral 8-21 tab, PO, l Tablet 15:45: Bedtime, # Mary nn [Topamax] 00 30 tab, 2 Refill(s), Pharmacy: [facility] #[id number] topiramate 2019-0 Yes 25 mg = 1 Me moria 25 MG Oral 8-21 tab, PO, l Tablet 15:45: Bedtime, # Mary nn [Topamax] 00 30 tab, 2 Refill(s), Pharmacy: [facility] #[id number] topiramate 2019-0 Yes 25 mg = 1 Me moria 25 MG Oral 8-21 tab, PO, l Tablet 15:45: Bedtime, # Mary nn [Topamax] 00 30 tab, 2 Refill(s), Pharmacy: [facility] #[id number] topiramate 2019-0 Yes 25 mg = 1 Me moria 25 MG Oral 8-21 tab, PO, l Tablet 15:45: Bedtime, # Mary nn [Topamax] 00 30 tab, 2 Refill(s), Pharmacy: [facility] #[id number] topiramate 2019-0 Yes 25 mg = 1 Me moria 25 MG Oral 8-21 tab, PO, l Tablet 15:45: Bedtime, # Mary nn [Topamax] 00 30 tab, 2 Refill(s), Pharmacy: [facility] #[id number] topiramate 2019-0 Yes 25 mg = 1 Me moria 25 MG Oral 8-21 tab, PO, l Tablet 15:45: Bedtime, # Mary nn [Topamax] 00 30 tab, 2 Refill(s), [id number] topiramate 2019-0 Yes 25 mg = 1 Me moria 25 MG Oral 8-21 tab, PO, l Tablet 15:45: Bedtime, # Mary nn [Topamax] 00 30 tab, 2 Refill(s), Pharmacy: [facility] #[id number] topiramate 2019-0 Yes 25 mg = 1 Me moria 25 MG Oral 8-21 tab, PO, l Tablet 15:45: Bedtime, # Mary nn [Topamax] 00 30 tab, 2 Refill(s), Pharmacy: [facility] #[id number] topiramate 2019-0 Yes 25 mg = 1 Me moria 25 MG Oral 8-21 tab, PO, l Tablet 15:45: Bedtime, # Mary nn [Topamax] 00 30 tab, 2 Refill(s), Pharmacy: [facility] #[id number] topiramate 2019-0 Yes 25 mg = 1 Me moria 25 MG Oral 8-21 tab, PO, l Tablet 15:45: Bedtime, # Mary nn [Topamax] 00 30 tab, 2 Refill(s), Pharmacy: [facility] #[id number] topiramate 2019-0 Yes 25 mg = 1 Me moria 25 MG Oral 8-21 tab, PO, l Tablet 15:45: Bedtime, # Mary nn [Topamax] 00 30 tab, 2 Refill(s), Pharmacy: [facility] #[id number] topiramate 2019-0 Yes 25 mg = 1 Me moria 25 MG Oral 8-21 tab, PO, l Tablet 15:45: Bedtime, # Mary nn [Topamax] 00 30 tab, 2 Refill(s), Pharmacy: [facility] #[id number] topiramate 2019-0 Yes 25 mg = 1 Me moria 25 MG Oral 8-21 tab, PO, l Tablet 15:45: Bedtime, # Mary nn [Topamax] 00 30 tab, 2 Refill(s), Pharmacy: [facility] #[id number] topiramate 2019-0 Yes 25 mg = 1 Me moria 25 MG Oral 8-21 tab, PO, l Tablet 15:45: Bedtime, # Mary nn [Topamax] 00 30 tab, 2 Refill(s), Pharmacy: [facility] #[id number] topiramate 2019-0 Yes 25 mg = 1 Me moria 25 MG Oral 8-21 tab, PO, l Tablet 15:45: Bedtime, # Mary nn [Topamax] 00 30 tab, 2 Refill(s), Pharmacy: [facility] #[id number] topiramate 2019-0 Yes 25 mg = 1 Me moria 25 MG Oral 8-21 tab, PO, l Tablet 15:45: Bedtime, # Mary nn [Topamax] 00 30 tab, 2 Refill(s), Pharmacy: [facility] #[id number] topiramate 2019-0 Yes 25 mg = 1 Me moria 25 MG Oral 8-21 tab, PO, l Tablet 15:45: Bedtime, # Mary nn [Topamax] 00 30 tab, 2 Refill(s), Pharmacy: [facility] #[id number] topiramate 2019-0 Yes 25 mg = 1 Me moria 25 MG Oral 8-21 tab, PO, l Tablet 15:45: Bedtime, # Mary nn [Topamax] 00 30 tab, 2 Refill(s), Pharmacy: [facility] #[id number] topiramate 2019-0 Yes 25 mg = 1 Me moria 25 MG Oral 8-21 tab, PO, l Tablet 15:45: Bedtime, # Mary nn [Topamax] 00 30 tab, 2 Refill(s), Pharmacy: [facility] #[id number] topiramate 2019-0 Yes 25 mg = 1 Me moria 25 MG Oral 8-21 tab, PO, l Tablet 15:45: Bedtime, # Mary nn [Topamax] 00 30 tab, 2 Refill(s), Pharmacy: [facility] #[id number] topiramate 2019-0 Yes 25 mg = 1 Me moria 25 MG Oral 8-21 tab, PO, l Tablet 15:45: Bedtime, # Mary nn [Topamax] 00 30 tab, 2 Refill(s), Pharmacy: [facility] #[id number] topiramate 2019-0 Yes 25 mg = 1 Me moria 25 MG Oral 8-21 tab, PO, l Tablet 15:45: Bedtime, # Mary nn [Topamax] 00 30 tab, 2 Refill(s), [id number] topiramate 2019-0 Yes 25 mg = 1 Me moria 25 MG Oral 8-21 tab, PO, l Tablet 15:45: Bedtime, # Mary nn [Topamax] 00 30 tab, 2 Refill(s), Pharmacy: [facility] #[id number] topiramate 2019-0 Yes 25 mg = 1 Me moria 25 MG Oral 8-21 tab, PO, l Tablet 15:45: Bedtime, # Mary nn [Topamax] 00 30 tab, 2 Refill(s), [id number] topiramate 2019-0 Yes 25 mg = 1 Me moria 25 MG Oral 8-21 tab, PO, l Tablet 15:45: Bedtime, # Mary nn [Topamax] 00 30 tab, 2 Refill(s), Pharmacy: [facility] #[id number] topiramate 2019-0 Yes 25 mg = 1 Me moria 25 MG Oral 8-21 tab, PO, l Tablet 15:45: Bedtime, # Mary nn [Topamax] 00 30 tab, 2 Refill(s), [id number] topiramate 2019-0 Yes 25 mg = 1 Me moria 25 MG Oral 8-21 tab, PO, l Tablet 15:45: Bedtime, # Mary nn [Topamax] 00 30 tab, 2 Refill(s), [facility] [id number] topiramate 2019-0 Yes 25 mg = 1 Me moria 25 MG Oral 8-21 tab, PO, l Tablet 15:45: Bedtime, # Mary nn [Topamax] 00 30 tab, 2 Refill(s), [id number] topiramate 2019-0 Yes 25 mg = 1 Me moria 25 MG Oral 8-21 tab, PO, l Tablet 15:45: Bedtime, # Mary nn [Topamax] 00 30 tab, 2 Refill(s), [facility][id number] topiramate 2019-0 Yes 25 mg = 1 Me moria 25 MG Oral 8-21 tab, PO, l Tablet 15:45: Bedtime, # Mary nn [Topamax] 00 30 tab, 2 Refill(s), Pharmacy: [facility] #[id number] topiramate 2019-0 Yes 25 mg = 1 Me moria 25 MG Oral 8-21 tab, PO, l Tablet 15:45: Bedtime, # Mary nn [Topamax] 00 30 tab, 2 Refill(s), [facility] #[id number] topiramate 2019-0 Yes 25 mg = 1 Me moria 25 MG Oral 8-21 tab, PO, l Tablet 15:45: Bedtime, # Mary nn [Topamax] 00 30 tab, 2 Refill(s), Pharmacy: [facility] #[id number] topiramate 2019-0 Yes 25 mg = 1 Me moria 25 MG Oral 8-21 tab, PO, l Tablet 15:45: Bedtime, # Mary nn [Topamax] 00 30 tab, 2 Refill(s), [id number] topiramate 2019-0 Yes 25 mg = 1 Me moria 25 MG Oral 8-21 tab, PO, l Tablet 15:45: Bedtime, # Mary nn [Topamax] 00 30 tab, 2 Refill(s), [facility] #[id number] topiramate 2019-0 Yes 25 mg = 1 Me moria 25 MG Oral 8-21 tab, PO, l Tablet 15:45: Bedtime, # Mary nn [Topamax] 00 30 tab, 2 Refill(s), [facility][id number] topiramate 2019-0 Yes 25 mg = 1 Me moria 25 MG Oral 8-21 tab, PO, l Tablet 15:45: Bedtime, # Mary nn [Topamax] 00 30 tab, 2 Refill(s), [facility][id number] topiramate 2019-0 Yes 25 mg = 1 Me moria 25 MG Oral 8-21 tab, PO, l Tablet 15:45: Bedtime, # Mary nn [Topamax] 00 30 tab, 2 Refill(s), [facility][id number] atorvastati 2019-0 Yes PO, Daily, Memoria n 8-21 0 l 15:28: Refill(s) [place] 00 Amlodipine 2019-0 Yes PO, Daily, M emoria [...] Memoria n 8-21 0 l 15:28: Refill(s) amLODIPine 2019-0 [...] 8-21 Q8H, 0 l 15:00: Refill(s) oxyCODONE 2018-0 Yes 10 mg = 1 Mem oria 10 mg oral 8-21 tab, PO, l tablet, 15:00: Q6H, 0 [place] Refill(s) release gabapentin 2019- Yes 600 mg, Rao caity 8-21 PO, TID, 0 l 15:00: Refill(s) Ambien 20190 Yes 5 mg, PO, Memori a 8- Bedtime, 0 l 15:00: Refill(s) Lidocaine 2019-0 Yes See Memoria 07-18 Instructio l 15:00: ns, 5 % [place] 00 Transderma l q12, 0 Refill(s) Protonix 2019 Yes 40 mg, PO, Mem oria 8- Daily, 0 l 15:00: Refill(s) Ondansetron Yes 4 mg = 1 Me moria 4 MG Oral 07-18 tab, PO, l Tablet 15:00: Q8H, 0 [Zofran] Refill(s) Hydroxyzine Yes 25 mg = 1 M emoria 8- tab, PO, l 15:00: Q6H, PRN rash / allergy symptoms, 0 Refill(s) Fluoxetine Yes 60 mg, PO, M emoria 8 Daily, 0 l 15:00: Refill(s) gabapentin 2019-0 Yes 600 mg, Rao caity 8-21 PO, TID, 0 l 15:00: Refill(s) Ambien Yes 5 mg, PO, Memori a 07-18 Bedtime, 0 l 15:00: Refill(s) lidocaine 2019-0 Yes See oria 07-18 Instructio l [...] rash / allergy symptoms, 0 Refill(s) FLUoxetine 2019 Yes 60 mg, PO, M emoria [...] rash / allergy symptoms, 0 Refill(s) FLUoxetine 0 Yes 60 mg, PO, M emoria 821 [...] gabapentin 2019-0 Yes 600 mg, Rao caity 8 PO, [...] 2019-0 Yes 4 mg, PO, Rao caity 07-18 [...] 07-18 Daily, 0 l 15:00: Refill(s) gabapentin 0 Yes 600 mg, Rao caity 07-18 PO, TID, 0 l 15:00: Refill(s) Ambien 0 Yes 5 mg, PO, Memori a 07-18 Bedtime, 0 l 15:00: Refill(s) lidocaine 2018-0 Yes See oria 07-18 Instructio l 15:00: [...] l tablet, 15:00: Q6H, 0 Refill(s) release oxyCODONE Yes 10 mg = 1 Mem oria 10 mg oral 8-21 tab, PO, l tablet, 15:00: Q6H, 0 Refill(s) release gabapentin 0 Yes 600 mg, Rao caity 8-21 PO, TID, 0 l 15:00: Refill(s) gabapentin 20190 Yes 600 mg, Rao caity 8-21 PO, TID, 0 l 15:00: Refill(s) Ambien 20190 Yes 5 mg, PO, Memori a 8-21 Bedtime, 0 l 15:00: Refill(s) Ambien 20190 Yes 5 mg, PO, Memori a 8-21 Bedtime, 0 l 15:00: Refill(s) Lidocaine 2019-0 Yes See Memoria 8-21 Instructio l 15:00: ns, 5 % Transderma l q12, 0 Refill(s) Lidocaine 2019-0 Yes See Memoria 8-21 Instructio l 15:00: ns, 5 % Transderma l q12, 0 Refill(s) Protonix 2019-0 Yes 40 mg, PO, Mem oria 8-21 Daily, 0 l 15:00: Refill(s) Protonix 2019-0 Yes 40 mg, PO, Mem oria 8-21 Daily, 0 l 15:00: Refill(s) Ondansetron Yes 4 mg = 1 Me moria 4 MG Oral 8-21 tab, PO, l Tablet 15:00: Q8H, 0 [Zofran] Refill(s) Hydroxyzine 0 Yes 25 mg = 1 M emoria 8-21 tab, PO, l 15:00: Q6H, PRN rash / allergy symptoms, 0 Refill(s) Ondansetron 2019- Yes 4 mg = 1 Me moria 4 MG Oral 8-21 tab, PO, l Tablet 15:00: Q8H, 0 [Zofran] Refill(s) Fluoxetine 2019- Yes 60 mg, PO, M emoria 8-21 Daily, 0 l 15:00: Refill(s) Hydroxyzine 2019 Yes 25 mg = 1 M emoria 8-21 tab, PO, l 15:00: Q6H, PRN rash / allergy symptoms, 0 Refill(s) lidocaine 2019 Yes See Memoria 07-18 Instructio l 15:00: ns, 5 % Transderma l q12, 0 Refill(s) Fluoxetine 2019 Yes 60 mg, PO, M emoria 8-21 Daily, 0 l 15:00: Refill(s) Protonix 2018-0 Yes 40 mg, PO, Mem oria 8-21 Daily, 0 l 15:00: Refill(s) lidocaine 2019-0 Yes See Memoria 07-18 Instructio l 15:00: ns, 5 % Transderma l q12, 0 Refill(s) Zofran 4 mg 2019- Yes 4 mg = 1 Me moria oral tablet - tab, PO, l 15:00: Q8H, 0 Refill(s) Protonix 2019-0 Yes 40 mg, PO, Mem oria 8-21 Daily, 0 l 15:00: Refill(s) hydrOXYzine 2019 Yes 25 mg = 1 M emoria 8-21 tab, PO, l 15:00: Q6H, PRN rash / allergy symptoms, 0 Refill(s) Zofran 4 mg 2019- Yes 4 mg = 1 Me moria oral tablet 8-21 tab, PO, l 15:00: Q8H, 0 Refill(s) FLUoxetine 2019-0 Yes 60 mg, PO, M emoria 8-21 Daily, 0 l 15:00: Refill(s) hydrOXYzine Yes 25 mg = 1 [...] a 8 Bedtime, 0 l 15:00: Refill(s) Ambien Yes 5 mg, PO, Memori a 8 Bedtime, 0 l 15:00: Refill(s) Zanaflex 0 Yes [...] emoria 8-21 Daily, 0 l 15:00: Refill(s) lidocaine 2019-0 Yes [...] a 8 Bedtime, 0 l 15:00: Refill(s) Zanaflex 20190 [...] 07-18 Daily, 0 l 15:00: Refill(s) Ondansetron 2019 Yes 4 mg = 1 Me moria 4 MG Oral 07-18 tab, PO, l Tablet 15:00: Q8H, 0 [Zofran] Refill(s) Hydroxyzine 2019 Yes 25 mg = 1 M emoria 07-18 tab, PO, l 15:00: Q6H, PRN rash / allergy symptoms, 0 Refill(s) Fluoxetine 2019 Yes 60 mg, PO, M emoria 07-18 Daily, 0 l 15:00: Refill(s) lidocaine 2019-0 Yes [...] rash / allergy symptoms, 0 Refill(s) FLUoxetine 0 Yes 60 mg, PO, M emoria 07-18 Daily, 0 l 15:00: Refill(s) gabapentin 0 Yes 600 mg, Rao caity 07-18 PO, TID, 0 l 15:00: Refill(s) Ambien 20190 Yes 5 mg, PO, Memori a 07-18 Bedtime, 0 l 15:00: Refill(s) Zanaflex 20190 Yes 4 mg, PO, Rao caity 07-18 Q8H, 0 l 15:00: Refill(s) oxyCODONE 20190 Yes 10 mg = 1 Mem oria 10 mg oral 07-18 tab, PO, l tablet, 15:00: Q6H, 0 [place] 00 Refill(s) release gabapentin 2019-0 Yes 600 mg, Rao caity 8 PO, TID, 0 l 15:00: Refill(s) Ambien 2019-0 Yes 5 mg, PO, Memori a 07-18 Bedtime, 0 l 15:00: Refill(s) [facility] 15:00: ns, 5 % [place] 00 Transderma l q12, 0 Refill(s) Protonix 2019- Yes 40 mg, PO, Mem oria 8 Daily, 0 l 15:00: Refill(s) Ondansetron 2019-0 Yes 4 mg = 1 Me moria 4 MG Oral 07-18 tab, PO, l Tablet 15:00: Q8H, 0 [Zofran] 00 Refill(s) Hydroxyzine 2019- Yes 25 mg = 1 M emoria 07-18 tab, PO, l 15:00: Q6H, PRN [place] 00 rash / allergy symptoms, 0 Refill(s) Fluoxetine Yes 60 mg, PO, M emoria 8 Daily, 0 l 15:00: Refill(s) lidocaine 2018-0 [facility] In[facility] 15:00: ns, 5 % [place] 00 Transderma l q12, 0 Refill(s) Protonix 2019-0 Yes 40 mg, PO, Mem oria 07-18 Daily, 0 l 15:00: Refill(s) Zofran 4 mg 2019-0 Yes 4 mg = 1 Me moria oral tablet - tab, PO, l 15:00: Q8H, 0 Refill(s) hydrOXYzine 2019-0 Yes 25 mg = 1 M emoria 8-21 tab, PO, l 15:00: Q6H, PRN [place] 00 rash / allergy symptoms, 0 Refill(s) FLUoxetine 2019-0 Yes 60 mg, PO, M emoria 8-21 Daily, 0 l 15:00: Refill(s) gabapentin 2019-0 Yes 600 mg, Roa caity 8-21 PO, TID, 0 l 15:00: Refill(s) Ambien 2019-0 Yes 5 mg, PO, Memori a 8-21 Bedtime, 0 l 15:00: Refill(s) Zanaflex 2019-0 Yes [...] 8-21 Bedtime, 0 l 15:00: Refill(s) Lidocaine 20190 [...] emoria 8-21 Daily, 0 l 15:00: Refill(s) lidocaine 2019-0 Yes [...] gabapentin 2019-0 Yes 600 mg, Rao caity - PO, TID, 0 l 15:00: Refill(s) Ambien 20190 Yes 5 mg, PO, Memori a 07-18 Bedtime, 0 l 15:00: Refill(s) Zanaflex 20190 [...] emoria 07-18 Daily, 0 l 15:00: Refill(s) lidocaine 2019-0 Yes [...] Refill(s) gabapentin Yes 600 mg, Rao caity 8-21 PO, TID, 0 l 15:00: Refill(s) Ambien Yes 5 mg, PO, Memori a 07-18 Bedtime, 0 l 15:00: Refill(s) Zanaflex 0 Yes 4 mg, PO, Rao acity -21 Q8H, 0 l 15:00: Refill(s) oxyCODONE Yes 10 mg = 1 Mem oria 10 mg oral 07-18 tab, PO, l tablet, 15:00: Q6H, 0 Refill(s) release gabapentin 0 Yes 600 mg, Rao caity 8-21 PO, TID, 0 l 15:00: Refill(s) Ambien 0 Yes 5 mg, PO, Memori a 07-18 Bedtime, 0 l 15:00: Refill(s) Lidocaine 2018-0 [...] emoria 8 Daily, 0 l 15:00: Refill(s) lidocaine 2019-0 Yes See Memoria 07-18 Instructio l 15:00: ns, 5 % Transderma l q12, 0 Refill(s) Protonix 2019-0 Yes 40 mg, PO, Mem oria 8 Daily, 0 l 15:00: Refill(s) Zofran 4 mg 2019- Yes 4 mg = 1 Me moria oral tablet 07-18 tab, PO, l 15:00: Q8H, 0 Refill(s) hydrOXYzine 2018-0 Yes 25 mg = 1 M emoria 07-18 tab, PO, l 15:00: Q6H, PRN rash / allergy symptoms, 0 Refill(s) FLUoxetine 2019-0 Yes 60 mg, PO, M emoria 8 Daily, 0 l 15:00: Refill(s) gabapentin 2019-0 Yes 600 mg, Rao caity 8- PO, TID, 0 l 15:00: Refill(s) Ambien 20190 Yes 5 mg, PO, Memori a 07-18 Bedtime, 0 l 15:00: Refill(s) Zanaflex 2019-0 Yes 4 mg, PO, Rao caity 8 Q8H, 0 l 15:00: Refill(s) oxyCODONE 2019-0 Yes 10 mg = 1 Mem oria 10 mg oral 8 tab, PO, l tablet, 15:00: Q6H, 0 [place] Refill(s) release gabapentin 2019-0 Yes 600 mg, Rao caity 8-21 PO, TID, 0 l 15:00: Refill(s) Ambien 2019-0 Yes 5 mg, PO, Memori a 07-18 Bedtime, 0 l 15:00: Refill(s) Lidocaine 2019-0 [facility] In[facility] 15:00: ns, 5 % Transderma l q12, 0 Refill(s) Protonix 2019-0 Yes 40 mg, PO, Mem oria 07-18 Daily, 0 l 15:00: Refill(s) Ondansetron 2019-0 Yes 4 mg = 1 Me moria 4 MG Oral 07-18 tab, PO, l Tablet 15:00: Q8H, 0 [Zofran] Refill(s) Hydroxyzine 2019- Yes 25 mg = 1 M emoria 07-18 tab, PO, l 15:00: Q6H, PRN rash / allergy symptoms, 0 Refill(s) Fluoxetine Yes 60 mg, PO, M emoria 07-18 Daily, 0 l 15:00: Refill(s) lidocaine 2018-0 Yes See oria 07-18 Instructio l 15:00: [...] a 07-18 Bedtime, 0 l 15:00: Refill(s) Zanaflex 2019-0 Yes 4 mg, PO, Rao caity 8-21 Q8H, 0 l 15:00: Refill(s) oxyCODONE 2019-0 Yes 10 mg = 1 Mem oria 10 mg oral 8-21 tab, PO, l tablet, 15:00: Q6H, 0 [place] Refill(s) release gabapentin 2019-0 Yes 600 mg, [...] emoria 8 Daily, 0 l 15:00: Refill(s) lidocaine 2018-0 Yes [...] rash / allergy symptoms, 0 Refill(s) FLUoxetine 2019 Yes 60 mg, PO, M emoria 8- Daily, 0 l 15:00: Refill(s) gabapentin 20190 Yes 600 mg, Rao caity 8-21 PO, TID, 0 l 15:00: Refill(s) Ambien 0 Yes 5 mg, PO, Memori a 8 Bedtime, 0 l 15:00: Refill(s) Zanaflex 20190 [...] 8 Bedtime, 0 l 15:00: Refill(s) Lidocaine Yes [...] emoria 8-21 Daily, 0 l 15:00: Refill(s) lidocaine 0 Yes See Memoria 8 Instructio l 15:00: ns, 5 % Transderma l q12, 0 Refill(s) Protonix 2019-0 Yes 40 mg, PO, Mem oria 8-21 Daily, 0 l 15:00: Refill(s) Zofran 4 mg 2019-0 Yes 4 mg = 1 Me moria oral tablet 8- tab, PO, l 15:00: Q8H, 0 Refill(s) hydrOXYzine 2018-0 Yes 25 mg = 1 M emoria 8- tab, PO, l 15:00: Q6H, PRN rash / allergy symptoms, 0 Refill(s) FLUoxetine 20190 Yes 60 mg, PO, M emoria 8-21 Daily, 0 l 15:00: Refill(s) gabapentin 2018-0 Yes 600 mg, Rao caity 8-21 PO, TID, 0 l 15:00: Refill(s) Ambien 0 Yes 5 mg, PO, Memori a 8- Bedtime, 0 l 15:00: Refill(s) Zanaflex 0 Yes [...] 8-21 Daily, 0 l 15:00: Refill(s) Ondansetron 2018-0 Yes 4 mg = 1 Me moria 4 MG Oral 8-21 tab, PO, l Tablet 15:00: Q8H, 0 [Zofran] 00 Refill(s) Hydroxyzine 2019-0 Yes 25 mg = 1 M emoria 8-21 tab, PO, l 15:00: Q6H, PRN rash / allergy symptoms, 0 Refill(s) Fluoxetine 20190 Yes 60 mg, PO, M emoria 8-21 Daily, 0 l 15:00: Refill(s) lidocaine 2019-0 Yes [...] a 8 Bedtime, 0 l 15:00: Refill(s) Zanaflex 20190 [...] 821 Bedtime, 0 l 15:00: Refill(s) Lidocaine 2018-0 Yes See Memoria 07-18 Instructio l 15:00: ns, 5 % Transderma l q12, 0 Refill(s) Protonix 2019-0 Yes 40 mg, PO, Mem oria 07-18 Daily, 0 l 15:00: Refill(s) Ondansetron 2019- Yes 4 mg = 1 Me moria 4 MG Oral 07-18 tab, PO, l Tablet 15:00: Q8H, 0 [Zofran] Refill(s) Hydroxyzine 2019 Yes 25 mg = 1 M emoria 07-18 tab, PO, l 15:00: Q6H, PRN rash / allergy symptoms, 0 Refill(s) Fluoxetine 2019 Yes 60 mg, PO, M emoria 07-18 Daily, 0 l 15:00: Refill(s) lidocaine 2019-0 Yes [...] rash / allergy symptoms, 0 Refill(s) FLUoxetine 0 Yes 60 mg, PO, M emoria 07-18 Daily, 0 l 15:00: Refill(s) gabapentin 20190 Yes 600 mg, Rao caity 07-18 PO, TID, 0 l 15:00: Refill(s) Ambien 2019-0 Yes 5 mg, PO, Memori a 07-18 Bedtime, 0 l 15:00: Refill(s) Zanaflex 20190 Yes 4 mg, PO, Rao caity 07-18 Q8H, 0 l 15:00: Refill(s) oxyCODONE 2019-0 Yes 10 mg = 1 Mem oria 10 mg oral 07-18 tab, PO, l tablet, 15:00: Q6H, 0 [place] 00 Refill(s) release gabapentin 2019-0 Yes 600 mg, Rao caity 8 PO, TID, 0 l 15:00: Refill(s) Ambien 2019-0 Yes 5 mg, PO, Memori a 07-18 Bedtime, 0 l 15:00: Refill(s) Lidocaine 2019-0 [facility] In[facility] 15:00: ns, 5 % [...] emoria 8 Daily, 0 l 15:00: Refill(s) lidocaine 2018-0 Yes [facility] 07-18 Instructio l 15:00: ns, 5 % Transderma l q12, 0 Refill(s) Protonix 2019-0 Yes 40 mg, PO, Mem oria 8 Daily, 0 l 15:00: Refill(s) Zofran 4 mg 2019-0 Yes 4 mg = 1 Me moria oral tablet -21 tab, PO, l 15:00: Q8H, 0 Refill(s) [...] 8 Bedtime, 0 l 15:00: Refill(s) Lidocaine Yes [...] emoria 8-21 Daily, 0 l 15:00: Refill(s) lidocaine 2018-0 Yes [...] a 07-18 Bedtime, 0 l 15:00: Refill(s) Zanaflex 20190 [...] = 1 Me moria 4 MG Oral - tab, PO, l Tablet 15:00: Q8H, 0 [Zofran] Refill(s) Hydroxyzine 2019-0 Yes 25 mg = 1 M emoria 821 tab, PO, l 15:00: Q6H, PRN rash / allergy symptoms, 0 Refill(s) Fluoxetine 20190 Yes 60 mg, PO, M emoria 8-21 Daily, 0 l 15:00: Refill(s) lidocaine 2019-0 Yes [...] rash / allergy symptoms, 0 Refill(s) FLUoxetine 0 Yes 60 mg, PO, M emoria 8 Daily, 0 l 15:00: Refill(s) gabapentin 0 Yes 600 mg, Rao caity 8-21 PO, TID, 0 l 15:00: Refill(s) Ambien 0 Yes 5 mg, PO, Memori a 07-18 Bedtime, 0 l 15:00: Refill(s) Zanaflex 0 Yes 4 mg, PO, Rao caity - Q8H, 0 l 15:00: Refill(s) oxyCODONE Yes 10 mg = 1 Mem oria 10 mg oral 07-18 tab, PO, l tablet, 15:00: Q6H, 0 immediate Refill(s) release Zanaflex 0 Yes 4 mg, PO, Rao caity 8-21 Q8H, 0 l 15:00: Refill(s) gabapentin 0 Yes 600 mg, Rao caity 8-21 PO, TID, 0 l 15:00: Refill(s) oxyCODONE Yes 10 mg = 1 Mem oria 10 mg oral 821 tab, PO, l tablet, 15:00: Q6H, 0 Refill(s) release Ambien 0 Yes 5 mg, PO, Memori a 8-21 Bedtime, 0 l 15:00: Refill(s) gabapentin 2019 Yes 600 mg, Rao caity 07-18 PO, TID, 0 l 15:00: Refill(s) Lidocaine Yes See Memoria 07-18 Instructio l 15:00: ns, 5 % Transderma l q12, 0 Refill(s) Ambien Yes 5 mg, PO, Memori a 07-18 Bedtime, 0 l 15:00: Refill(s) Protonix Yes 40 mg, PO, Mem oria 07-18 Daily, 0 l 15:00: Refill(s) Lidocaine Yes See Memoria 07-18 Instructio l 15:00: ns, 5 % Transderma l q12, 0 Refill(s) Ondansetron Yes 4 mg = 1 Me moria 4 MG Oral 07-18 tab, PO, l Tablet 15:00: Q8H, 0 [place] [Zofran] Refill(s) Hydroxyzine Yes 25 mg = 1 M emoria 07-18 tab, PO, l 15:00: Q6H, PRN rash / allergy symptoms, 0 Refill(s) Protonix Yes 40 mg, PO, Mem oria 07-18 Daily, 0 l 15:00: Refill(s) Fluoxetine 0 Yes 60 mg, PO, M emoria 07-18 Daily, 0 l 15:00: Refill(s) Ondansetron 0 Yes 4 mg = 1 Me moria 4 MG Oral 07-18 tab, PO, l Tablet 15:00: Q8H, 0 [place] [Zofran] 00 Refill(s) lidocaine Yes See Memoria 07-18 Instructio l 15:00: ns, 5 % Transderma l q12, 0 Refill(s) Hydroxyzine 0 Yes 25 mg = 1 M emoria 821 tab, PO, l 15:00: Q6H, PRN rash / allergy symptoms, 0 Refill(s) Protonix 0 Yes 40 mg, PO, Mem oria 8- Daily, 0 l 15:00: Refill(s) Fluoxetine 2019-0 Yes 60 mg, PO, M emoria 07-18 Daily, 0 l 15:00: Refill(s) Zofran 4 mg 2019-0 Yes 4 mg = 1 Me moria oral tablet 07-18 tab, PO, l 15:00: Q8H, 0 Refill(s) lidocaine 2019-0 Yes See Memoria 07-18 Instructio l 15:00: ns, 5 % Transderma l q12, 0 Refill(s) hydrOXYzine 20190 Yes 25 mg = 1 M emoria 07-18 tab, PO, l 15:00: Q6H, PRN rash / allergy symptoms, 0 Refill(s) Protonix 2019-0 Yes 40 mg, PO, Mem oria 07-18 Daily, 0 l 15:00: Refill(s) FLUoxetine 2019-0 Yes 60 mg, PO, M emoria 07-18 Daily, 0 l 15:00: Refill(s) Zofran 4 mg 2019-0 Yes 4 mg = 1 Me moria oral tablet 07-18 tab, PO, l 15:00: Q8H, 0 Refill(s) gabapentin 2019-0 Yes 600 mg, Rao caity 07-18 PO, TID, 0 l 15:00: Refill(s) hydrOXYzine 2019-0 Yes 25 mg = 1 M emoria 07-18 tab, PO, l 15:00: Q6H, PRN rash / allergy symptoms, 0 Refill(s) Ambien 2019-0 Yes 5 mg, PO, Memori a 07-18 Bedtime, 0 l 15:00: Refill(s) FLUoxetine 2019-0 Yes 60 mg, PO, M emoria 07-18 Daily, 0 l 15:00: Refill(s) gabapentin 2019-0 Yes 600 mg, Rao caity 07-18 PO, TID, 0 l 15:00: Refill(s) Ambien 2019-0 Yes 5 mg, PO, Memori a 07-18 Bedtime, 0 l 15:00: Refill(s) Zanaflex 2019-0 Yes 4 mg, PO, Rao caity 8-21 Q8H, 0 l 15:00: Refill(s) oxyCODONE 2019-0 Yes 10 mg = 1 Mem oria 10 mg oral 8-21 tab, PO, l tablet, 15:00: Q6H, 0 [place] Refill(s) release gabapentin 2019-0 Yes 600 mg, [...] 8-21 tab, PO, l 15:00: Q6H, PRN [place] 00 rash / allergy symptoms, 0 Refill(s) Fluoxetine 2019-0 Yes 60 mg, PO, M emoria 8 Daily, 0 l 15:00: Refill(s) lidocaine 2018-0 Yes See Memoria 07-18 Instructio l 15:00: ns, 5 % Transderma l q12, 0 Refill(s) Protonix 2019-0 Yes 40 mg, PO, Mem oria 8-21 Daily, 0 l 15:00: Refill(s) Zofran 4 mg 2019-0 Yes 4 mg = 1 Me moria oral tablet 8-21 tab, PO, l 15:00: Q8H, 0 [place] 00 Refill(s) hydrOXYzine 2019-0 Yes 25 mg = 1 M emoria 8-21 tab, PO, l 15:00: Q6H, PRN rash / allergy symptoms, 0 Refill(s) FLUoxetine 2019 Yes 60 mg, PO, M emoria 8 Daily, 0 l 15:00: Refill(s) gabapentin 20190 Yes 600 mg, Rao caity 8-21 PO, TID, 0 l 15:00: Refill(s) Ambien 0 Yes 5 mg, PO, Memori a 8 Bedtime, 0 l 15:00: Refill(s) Zanaflex 20190 [...] 8 Bedtime, 0 l 15:00: Refill(s) Lidocaine Yes [...] emoria 8-21 Daily, 0 l 15:00: Refill(s) lidocaine 2018-0 Yes See Memoria 07-18 Instructio l 15:00: ns, 5 % Transderma l q12, 0 Refill(s) Protonix 2019-0 Yes 40 mg, PO, Mem oria 8-21 Daily, 0 l 15:00: Refill(s) Zofran 4 mg 2019-0 Yes 4 mg = 1 Me moria oral tablet 8- tab, PO, l 15:00: Q8H, 0 Refill(s) hydrOXYzine 2018-0 Yes 25 mg = 1 M emoria 8- tab, PO, l 15:00: Q6H, PRN rash / allergy symptoms, 0 Refill(s) FLUoxetine 20190 Yes 60 mg, PO, M emoria 8-21 Daily, 0 l 15:00: Refill(s) gabapentin 2019-0 Yes 600 mg, Rao caity 8-21 PO, TID, 0 l 15:00: Refill(s) Ambien 0 Yes 5 mg, PO, Memori a 8- Bedtime, 0 l 15:00: Refill(s) Zanaflex 20190 [...] 8-21 Daily, 0 l 15:00: Refill(s) Ondansetron 20190 [...] emoria 8-21 Daily, 0 l 15:00: Refill(s) lidocaine 2019-0 Yes [...] a 8 Bedtime, 0 l 15:00: Refill(s) Zanaflex 20190 [...] 821 Bedtime, 0 l 15:00: Refill(s) Lidocaine 2018-0 Yes See Memoria 07-18 Instructio l 15:00: ns, 5 % Transderma l q12, 0 Refill(s) Protonix 2019-0 Yes 40 mg, PO, Mem oria 07-18 Daily, 0 l 15:00: Refill(s) Ondansetron 2019- Yes 4 mg = 1 Me moria 4 MG Oral 07-18 tab, PO, l Tablet 15:00: Q8H, 0 [Zofran] Refill(s) Hydroxyzine 2019 Yes 25 mg = 1 M emoria 07-18 tab, PO, l 15:00: Q6H, PRN rash / allergy symptoms, 0 Refill(s) Fluoxetine Yes 60 mg, PO, M emoria 07-18 Daily, 0 l 15:00: Refill(s) lidocaine 2018-0 Yes See [facility]oria 07-18 Instructio l 15:00: ns, 5 % Transderma l q12, 0 Refill(s) Protonix 2018-0 Yes 40 mg, PO, Mem oria 07-18 Daily, 0 l 15:00: Refill(s) Zofran 4 mg 2019 Yes 4 mg = 1 Me moria oral tablet 07-18 tab, PO, l 15:00: Q8H, 0 Refill(s) hydrOXYzine Yes 25 mg = 1 M emoria 07-18 tab, PO, l 15:00: Q6H, PRN rash / allergy symptoms, 0 Refill(s) FLUoxetine 2018-0 Yes 60 mg, PO, M emoria 07-18 Daily, 0 l 15:00: Refill(s) gabapentin 2018-0 Yes 600 mg, Rao caity 07-18 PO, TID, 0 l 15:00: Refill(s) Ambien 2019-0 Yes 5 mg, PO, Memori a 07-18 Bedtime, 0 l 15:00: Refill(s) Zanaflex 20190 Yes 4 mg, PO, Rao caity 07-18 Q8H, 0 l 15:00: Refill(s) oxyCODONE 2019-0 Yes 10 mg = 1 Mem oria 10 mg oral 07-18 tab, PO, l tablet, 15:00: Q6H, 0 [place] 00 Refill(s) release gabapentin 2019- Yes 600 mg, Rao caity 8 PO, TID, 0 l 15:00: Refill(s) Ambien 20190 Yes 5 mg, PO, Memori a 07-18 Bedtime, 0 l 15:00: Refill(s) [facility]oc[facility] 2019-0 [facility] Instructio l 15:00: ns, 5 % Transderma l q12, 0 Refill(s) Protonix 2019-0 Yes 40 mg, PO, Mem oria 8 Daily, 0 l 15:00: Refill(s) Ondansetron 2019-0 Yes 4 mg = 1 Me moria 4 MG Oral 07-18 tab, PO, l Tablet 15:00: Q8H, 0 [Zofran] 00 Refill(s) Hydroxyzine 2019- Yes 25 mg = 1 M emoria 07-18 tab, PO, l 15:00: Q6H, PRN rash / allergy symptoms, 0 Refill(s) Fluoxetine 2019 Yes 60 mg, PO, M emoria 8 Daily, 0 l 15:00: Refill(s) lidocaine 2018-0 Yes [facility] Instructio l 15:00: ns, 5 % [place] 00 Transderma l q12, 0 Refill(s) Protonix 2019-0 [...] 8 Bedtime, 0 l 15:00: Refill(s) Lidocaine Yes [...] emoria 8-21 Daily, 0 l 15:00: Refill(s) lidocaine 0 Yes [...] emoria 821 Daily, 0 l 15:00: Refill(s) gabapentin 2019-0 Yes 600 mg, Rao caity 8- PO, TID, 0 l 15:00: Refill(s) Ambien 20190 Yes 5 mg, PO, Memori a 07-18 Bedtime, 0 l 15:00: Refill(s) Zanaflex 20190 [...] = 1 Me moria 4 MG Oral - tab, PO, l Tablet 15:00: Q8H, 0 [Zofran] Refill(s) Hydroxyzine 2019-0 Yes 25 mg = 1 M emoria 8-21 tab, PO, l 15:00: Q6H, PRN rash / allergy symptoms, 0 Refill(s) Fluoxetine 20190 Yes 60 mg, PO, M emoria 8-21 Daily, 0 l 15:00: Refill(s) lidocaine 2019-0 Yes [...] Refill(s) gabapentin Yes 600 mg, Rao caity 8-21 PO, TID, 0 l 15:00: Refill(s) Ambien Yes 5 mg, PO, Memori a 07-18 Bedtime, 0 l 15:00: Refill(s) Zanaflex Yes 4 [...] 07-18 Bedtime, 0 l 15:00: Refill(s) Lidocaine 2018-0 [...] emoria 8 Daily, 0 l 15:00: Refill(s) lidocaine 2019-0 Yes See [facility] 07-18 Instructio l 15:00: ns, 5 % Transderma l q12, 0 Refill(s) Protonix 2019-0 Yes 40 mg, PO, Mem oria 8 Daily, 0 l 15:00: Refill(s) Zofran 4 mg 2019 Yes 4 mg = 1 Me moria oral tablet 07-18 tab, PO, l 15:00: Q8H, 0 Refill(s) hydrOXYzine 2018-0 Yes 25 mg = 1 M emoria 07-18 tab, PO, l 15:00: Q6H, PRN rash / allergy symptoms, 0 Refill(s) FLUoxetine 2019-0 Yes 60 mg, PO, M emoria 8 Daily, 0 l 15:00: Refill(s) gabapentin 2019-0 Yes 600 mg, Rao caity 8- PO, TID, 0 l 15:00: Refill(s) Ambien 20190 Yes 5 mg, PO, Memori a 8 Bedtime, 0 l 15:00: Refill(s) Zanaflex 2019-0 Yes 4 mg, PO, Rao caity 8-21 Q8H, 0 l 15:00: Refill(s) oxyCODONE 2019-0 Yes 10 mg = 1 Mem oria 10 mg oral 8-21 tab, PO, l tablet, 15:00: Q6H, 0 [place] Refill(s) release gabapentin 2019-0 Yes 600 mg, [...] 07-18 Daily, 0 l 15:00: Refill(s) gabapentin 0 [...] tab, PO, l tablet, 15:00: Q6H, 0 [place] 00 Refill(s) release gabapentin 20190 Yes 600 [...] 15:00: Refill(s) lidocaine 2018-0 Yes See [facility] 8 Instructio l 15:00: ns, 5 % Transderma l q12, 0 Refill(s) Protonix 2019-0 Yes 40 mg, PO, Mem oria 8-21 Daily, 0 l 15:00: Refill(s) Zanaflex 0 Yes 4 mg, PO, Rao caity 8- Q8H, 0 l 15:00: Refill(s) Zofran 4 mg 2019- Yes 4 mg = 1 Me moria oral tablet 07-18 tab, PO, l 15:00: Q8H, 0 Refill(s) oxyCODONE 20190 Yes 10 mg = 1 Mem oria 10 mg oral 07-18 tab, PO, l tablet, 15:00: Q6H, 0 Refill(s) release hydrOXYzine 2019 Yes 25 mg = 1 M emoria 07-18 tab, PO, l 15:00: Q6H, PRN rash / allergy symptoms, 0 Refill(s) gabapentin Yes 600 mg, Rao caity 8- PO, TID, 0 l 15:00: Refill(s) FLUoxetine Yes 60 mg, PO, M emoria 8 Daily, 0 l 15:00: Refill(s) Ambien Yes [...] gabapentin 2018-0 Yes 600 mg, Rao caity 8- PO, [...] 8 Bedtime, 0 l 15:00: Refill(s) lidocaine 2018-0 [...] rash / allergy symptoms, 0 Refill(s) FLUoxetine 2018- Yes 60 mg, PO, M emoria 8 [...] emoria 07-18 Daily, 0 l 15:00: Refill(s) lidocaine 2019-0 Yes See [facility] 07-18 Instructio l 15:00: ns, 5 % Transderma l q12, 0 Refill(s) Protonix 2019-0 Yes 40 mg, PO, Mem oria 07-18 Daily, 0 l 15:00: Refill(s) Zofran 4 mg 2019-0 Yes 4 mg = 1 Me moria oral tablet 07-18 tab, PO, l 15:00: Q8H, 0 Refill(s) hydrOXYzine 2018-0 Yes 25 mg = 1 M emoria 07-18 tab, PO, l 15:00: Q6H, PRN rash / allergy symptoms, 0 Refill(s) FLUoxetine 2019-0 Yes 60 mg, PO, M emoria 07-18 Daily, 0 l 15:00: Refill(s) gabapentin 2019-0 Yes 600 mg, Rao caity 07-18 PO, TID, 0 l 15:00: Refill(s) Ambien 2019-0 Yes 5 mg, PO, Memori a 07-18 Bedtime, 0 l 15:00: Refill(s) Zanaflex 2019-0 Yes 4 mg, PO, Rao caity 07-18 Q8H, 0 l 15:00: Refill(s) oxyCODONE 2019-0 Yes 10 mg = 1 Mem oria 10 mg oral 8-21 tab, PO, l tablet, 15:00: Q6H, 0 [place] 00 Refill(s) release gabapentin 2019-0 Yes 600 mg, Rao caity 8- PO, TID, 0 l 15:00: Refill(s) Ambien 2019-0 Yes 5 mg, PO, Memori a 8- Bedtime, 0 l 15:00: Refill(s) [facility] 15:00: ns, 5 % [...] emoria 8 Daily, 0 l 15:00: Refill(s) lidocaine 2018-0 [facility] 15:00: ns, 5 % [...] a 8-21 Bedtime, 0 l 15:00: Refill(s) atorvastati Yes 1{tbl} [...] Immunizations Ordered Filled Immunization Date Status Comments [facility] e Immunization Name Name VTJW-DpR-7WQUQI-minh 2021-04-06 Completed Memor alana CUELLAR-1273vaxMODERNA< 00:00:00 sup>1</sup> TOSD-CqL-0CFRRW-minh 2021-04-06 Completed [facility] [place] RNA-1273vaxMODERNA< 00:00:00 sup>1</sup> UWNY-ZuP-9BMNHP-19 2021-04-06 Completed [facility] [place] RNA-1273vaxMODERNA< 00:00:00 sup>1</sup> PPLR-HeO-5DSWQW-19 2021-04-06 Completed [facility] [place] RNA-1273vaxMODERNA< 00:00:00 sup>1</sup> RTGO-XfT-3WIKED- 2021-04-06 Completed [facility] [place] RNA-1273vaxMODERNA< 00:00:00 sup>1</sup> OHTL-SiB-9RICNO- 2021-04-06 Completed [facility] [place] RNA-1273vaxMODERNA< 00:00:00 sup>1</sup> CSHN-OfI-9VYIOY-[facility] 2021-04-06 Completed [facility] [place] RNA-1273vaxMODERNA< 00:00:00 sup>1</sup> YLIT-GcG-1UNFLA-[facility] 2021-04-06 Completed [facility] [place] RNA-1273vaxMODERNA< 00:00:00 sup>1</sup> KOML-SuW-6YJCLR- 2021-04-06 Completed [facility] [place] RNA-1273vaxMODERNA< 00:00:00 sup>1</sup> SRYC-YcM-8TPDGO-[facility] 2021-04-06 Completed [facility] [place] RNA-1273vaxMODERNA< 00:00:00 sup>1</sup> SAJI-MtV-7ZABYY- 2021-04-06 Completed [facility] [place] RNA-1273vaxMODERNA< 00:00:00 sup>1</sup> FFEH-MgG-2VYADQ-[facility] 2021-04-06 Completed [facility] [place] RNA-1273vaxMODERNA< 00:00:00 sup>1</sup> UVWQ-SaK-6UTUJF-[facility] 2021-04-06 Completed [facility] [place] RNA-1273vaxMODERNA< 00:00:00 sup>1</sup> TVKS-FhM-7TGXZX- 2021-04-06 Completed [facility] [place] RNA-1273vaxMODERNA< 00:00:00 sup>1</sup> XMKU-FuL-6FLATK- 2021-04-06 Completed [facility] [place] RNA-1273vaxMODERNA< 00:00:00 sup>1</sup> JYDQ-GsR-0CQVEA-[facility] 2021-04-06 Completed [facility] [place] RNA-1273vaxMODERNA< 00:00:00 sup>1</sup> VTZI-QnB-2APFJY-[facility] 2021-04-06 Completed [facility] [place] RNA-1273vaxMODERNA< 00:00:00 sup>1</sup> GZRP-LvX-1QFMRZ-[facility] 2021-04-06 Completed [facility] [place] RNA-1273vaxMODERNA< 00:00:00 sup>1</sup> FVRE-YpB-1OFPWS-[facility] 2021-04-06 Completed [facility] [place] RNA-1273vaxMODERNA< 00:00:00 sup>1</sup> LEJE-VjV-2AHRTB-[facility] 2021-04-06 Completed [facility] [place] RNA-1273vaxMODERNA< 00:00:00 sup>1</sup> QGWN-KfG-2FZCCK-[facility] 2021-04-06 Completed [facility] [place] RNA-1273vaxMODERNA< 00:00:00 sup>1</sup> AESB-ArR-8QBKLP-[facility] 2021-04-06 Completed [facility] [place] RNA-1273vaxMODERNA< 00:00:00 sup>1</sup> NXML-RcE-8KATNL-[facility] 2021-04-06 Completed [facility] [place] RNA-1273vaxMODERNA< 00:00:00 sup>1</sup> LTIN-OsN-1FZQXZ-[facility] 2021-04-06 Completed [facility] [place] RNA-1273vaxMODERNA< 00:00:00 sup>1</sup> TADL-LwP-8OVBOT- 2021-04-06 Completed [facility] [place] RNA-1273vaxMODERNA< 00:00:00 sup>1</sup> QNWP-SyN-4YAHFE- 2021-04-06 Completed [facility] [place] RNA-1273vaxMODERNA< 00:00:00 sup>1</sup> FVBI-McC-4FIVRX- 2021-04-06 Completed [facility] [place] RNA-1273vaxMODERNA< 00:00:00 sup>1</sup> CXYL-EvE-9REWJX- 2021-04-06 Completed [facility] [place] RNA-1273vaxMODERNA< 00:00:00 sup>1</sup> RDZC-LwY-4IUDRY-[facility] 2021-04-06 Completed [facility] [place] RNA-1273vaxMODERNA< 00:00:00 sup>1</sup> YLFG-LpD-3GKOHA-[facility] 2021-04-06 Completed [facility] [place] RNA-1273vaxMODERNA< 00:00:00 sup>1</sup> ZEQZ-FfD-0RKMFO-[facility] 2021-04-06 Completed [facility] [place] RNA-1273vaxMODERNA< 00:00:00 sup>1</sup> PIMB-LfH-1NXZOV-[facility] 2021-04-06 Completed [facility] [place] RNA-1273vaxMODERNA< 00:00:00 sup>1</sup> ZXVE-OlC-8FOYOG- 2021-04-06 Completed [facility] [place] RNA-1273vaxMODERNA< 00:00:00 sup>1</sup> IVYI-WlJ-6JWVBX- 2021-04-06 Completed [facility] [place] RNA-1273vaxMODERNA< 00:00:00 sup>1</sup> IIYP-TqZ-4IATGT-[facility] 2021-04-06 Completed [facility] [place] RNA-1273vaxMODERNA< 00:00:00 sup>1</sup> VWOK-VkH-8AYPHL-19m 2021-04-06 Completed [facility] [place] RNA-1273vaxMODERNA< 00:00:00 sup>1</sup> BLFI-PhA-7ZYOUS-19m 2021-04-06 Completed [facility] [place] RNA-1273vaxMODERNA< [...] Unive rsity of MODERNA VACCINE 00:00:00 [facility] ical Branch SARS-COV-2 COVID-19 2021-03-12 Completed Unive rsity of MODERNA VACCINE 00:00:00 [facility] ical Branch SARS-COV-2 COVID-19 2021-03-12 Completed Unive rsity of MODERNA VACCINE 00:00:00 [facility] ical Branch SARS-COV-2 COVID-19 2021-03-12 Completed Unive rsity of MODERNA VACCINE 00:00:00 [facility] ical Branch SARS-COV-2 COVID-19 2021-03-12 Completed Unive rsity of MODERNA VACCINE 00:00:00 [facility] ical Branch SARS-COV-2 COVID-19 2021-03-12 Completed Unive rsity of MODERNA 12+ YRS 00:00:00 [facility] ical VACCINE Branch SARS-COV-2 COVID-19 2021-03-12 Completed Unive rsity of MODERNA 12+ YRS 00:00:00 [facility] ical VACCINE Branch SARS-COV-2 COVID-19 2021-03-12 Completed Unive rsity of MODERNA 12+ YRS 00:00:00 [facility] ical VACCINE Branch SARS-COV-2 COVID-19 2021-03-12 Completed Unive rsity of MODERNA 12+ YRS 00:00:00 [facility] ical VACCINE Branch SARS-COV-2 COVID-19 2021-03-12 Completed Unive rsity of MODERNA 12+ YRS 00:00:00 [facility] ical VACCINE Branch SARS-COV-2 COVID-19 2021-03-12 Completed Unive rsity of MODERNA 12+ YRS 00:00:00 [facility] ical VACCINE Branch SARS-COV-2 COVID-19 2021-03-12 Completed Unive rsity of MODERNA VACCINE 00:00:00 [facility] ical Branch SARS-COV-2 COVID-19 2021-03-12 Completed Unive rsity of MODERNA VACCINE 00:00:00 [facility] ical Branch Influenza Virus 2020-11-28 Completed Universit y of Vaccine (3+ yrs) 00:00:00 [facility] dical Branch Influenza Virus 2020-11-28 Completed Universit y of Vaccine (3+ yrs) 00:00:00 [place] [facility] Influenza Virus 2020-11-28 Completed Universit y of Vaccine (3+ yrs) 00:00:00 [facility] Influenza Virus 2020-11-28 Completed Universit y of Vaccine (3+ yrs) 00:00:00 [facility] Influenza Virus 2020-11-28 Completed Universit y of Vaccine (3+ yrs) 00:00:00 [facility] Influenza Virus 2020-11-28 Completed Universit y of Vaccine (3+ yrs) 00:00:00 [facility] Influenza Virus 2020-11-28 Completed Universit y of Vaccine (3+ yrs) 00:00:00 [facility] Influenza Virus 2020-11-28 Completed Universit y of Vaccine (3+ yrs) 00:00:00 [facility] Influenza Virus 2020-11-28 Completed Universit y of Vaccine (3+ yrs) 00:00:00 [facility] Influenza Virus 2020-11-28 Completed Universit y of Vaccine (3+ yrs) 00:00:00 [facility] Influenza Virus 2020-11-28 Completed Universit y of Vaccine (3+ yrs) 00:00:00 [facility] Influenza Virus 2020-11-28 Completed Universit y of Vaccine (3+ yrs) 00:00:00 [facility] FLUCELVAX QUAD PF 2017-10-[address] 00:00:00 [facility] Pneumococcal 2017-10-06 Completed [facility]ian[facility] Conjugate 13-Valent 00:00:00 Hospi [facility] FLUCELVAX QUAD PF 2017-10-[address] 00:00:00 [facility] Pneumococcal 2017-10-06 Completed [facility] Conjugate 13-Valent 00:00:00 Hospi [facility] FLUCELVAX QUAD PF 2017-10-[address] 00:00:00 Hospital Pneumococcal 2017-10-06 Completed [facility] Conjugate 13-Valent 00:00:00 Hospi [facility]ra FLUCELVAX QUAD PF 2017-10-[address] 00:[facility]:00 Hospital Pneumococcal 2017-10-06 Completed [facility] Conjugate 13-Valent 00:00:00 Hospi iqra FLUCELVAX QUAD PF 2017-10-[address] 00:[facility]:00 Hospital Pneumococcal 2017-10-06 Completed [facility] Conjugate 13-Valent 00:00:00 Hospi iqra FLUCELVAX QUAD PF 2017-10-[address] 00:00:00 Hospital Pneumococcal 2017-10-06 Completed [facility] Conjugate 13-Valent 00:00:00 Hospi iqra FLUCELVAX QUAD PF 2017-10-[address] 00[facility]:00 Hospital Pneumococcal 2017-10-06 Completed [facility] Conjugate 13-Valent 00:00:00 Hospi i[facility]ra FLUCELVAX QUAD PF 2017-10-[address] 00:00:00 Hospital Pneumococcal 2017-10-06 Completed [facility] Conjugate 13-Valent 00:00:00 Hospi iqra FLUCELVAX QUAD PF 2017-10-[address] 00:00:00 Hospital Pneumococcal 2017-10-06 Completed [facility] Conjugate 13-Valent 00:00:00 Hospi i[facility]ra FLUCELVAX QUAD PF 2017-10-[address] 00:00:00 Hospital Pneumococcal 2017-10-06 Completed [facility] Conjugate 13-Valent 00:00:00 Hospi [facility]ra FLUCELVAX QUAD PF 2017-10-[address] 00:00:00 Hospital Pneumococcal 2017-10-06 Completed [facility] Conjugate 13-Valent 00:00:00 Hospi i[facility]ra FLUCELVAX QUAD PF 2017-10-[address] 00:[facility]:00 Hospital Pneumococcal 2017-10-06 Completed [facility] Conjugate 13-Valent 00:00:00 Hospi [facility]ra FLUCELVAX QUAD PF 2017-10-[address] 00:00:00 Hospital Pneumococcal 2017-10-06 Completed [facility] Conjugate 13-Valent 00:00:00 Hospi iqra FLUCELVAX QUAD PF 2017-10-[address] 00:[facility]:00 Hospital Pneumococcal 2017-10-06 Completed [facility] Conjugate 13-Valent 00:00:00 [facility]ra Influenza Virus 2017-10-06 Completed Universit y of Vaccine Quad IM, 00:00:00 [place] [facility] Preserv and ABX Branch Free 2-64 YRS Pneumococcal 13 2017-10-06 Completed Universit y of Conjugate, PCV13 00:00:00 [facility] dical (Prevnar 13) Branch Influenza Virus 2017-10-06 [...] and ABX Branch Free 6 MO-64 YRS (FLUCELVAX) Pneumococcal 13 2017-10-06 Completed Universit y of Conjugate, PCV13 00:00:00 [place] [facility] (Prevnar 13) Branch Influenza Virus 2017-10-06 Completed Universit y of Vaccine Quad IM, 00:00:00 [place] [facility] Preserv and ABX Branch Free 6 MO-64 YRS (FLUCELVAX) Pneumococcal 13 2017-10-06 Completed Universit y of Conjugate, PCV13 00:00:00 [place] [facility] (Prevnar 13) Branch Influenza Virus 2017-10-06 Completed Universit y of Vaccine Quad IM, 00:00:00 [place] [facility] Preserv and ABX Branch Free 6 MO-64 YRS (FLUCELVAX) Pneumococcal 13 2017-10-06 Completed Universit y of Conjugate, PCV13 00:00:00 [facility] dical (Prevnar 13) Branch Influenza Virus 2017-10-06 Completed Universit y of Vaccine Quad IM, 00:00:00 [place] [facility] Preserv and ABX Branch Free 2-64 YRS Pneumococcal 13 2017-10-06 Completed Universit y of Conjugate, PCV13 00:00:00 [facility] dical (Prevnar 13) Branch Influenza Virus 2017-10-06 Completed Universit y of Vaccine Quad IM, 00:00:00 [place] [facility] Preserv and ABX Branch Free 2-64 YRS Pneumococcal 13 2017-10-06 Completed Universit y of Conjugate, PCV13 00:00:00 [place] [facility] (Prevnar 13) Branch Influenza Virus 2017-10-06 Completed Universit y of Vaccine Quad IM, 00:00:00 [facility] dical Preserv and ABX Branch Free 2-64 YRS Pneumococcal 13 2017-10-06 Completed Universit y of Conjugate, PCV13 00:00:00 [facility] dical (Prevnar 13) Branch Vital Signs Vital Name Observation Time Observation Value Comments Source Systolic blood 2023-07-29 19:37:00 115 mm[Hg] [facility] Diastolic blood 2023-07-29 19:37:00 73 mm[facility]Hg[facility] 2023-07-29 19:21:00 58 /min [facility] Respiratory rate 2023-07-29 19:21:00 18 /min [facility] Body height 2023-07-29 19:21:00 162.6 cm [facility] Body weight 2023-07-29 19:21:00 64.864 kg [facility] BMI 2023-07-29 19:21:00 24.55 kg/m2 [facility] Systolic blood 2021-08-14 15:39:00 130 mm[Hg] [facility]iver [facility] Diastolic blood 2021-08-14 15:39:00 81 mm[Hg] [facility]ive [facility] Heart rate 2021-08-14 15:39:00 76 /min [facility] Body temperature 2021-08-14 15:39:00 37 Amy [facility] 2021-08-14 15:39:00 18 /min [facility] Body height 2021-08-14 15:39:00 162.6 cm [facility] Body weight 2021-08-14 15:39:00 53.933 kg [facility] BMI 2021-08-14 15:39:00 20.41 kg/m2 [facility] Oxygen saturation in 2021-08-14 15:39:00 100 /min [facility] Arterial blood by [facility] Pulse oximetry Branch Systolic (mm Hg) 2023-06-08 19:29:00 [facility] [place] Diastolic (mm Hg) 2023-06-08 19:29:00 [facility] [place] Heart Rate 2023-06-08 19:29:00 [facility] [place] Height 2023-06-08 19:29:00 5 [ft_i] [facility] [place] Weight 2023-06-08 19:29:00 [facility] [place] BMI Calculated 2023-06-08 19:29:00 [facility] [place] Systolic (mm Hg) 2022-09-07 19:49:00 Aro [facility] [place] Diastolic (mm Hg) 2022-09-07 19:49:00 [facility] [place] Heart Rate 2022-09-07 19:49:00 [facility] [place] Height 2022-09-07 19:49:00 5 [ft_i] [facility] [place] Weight 2022-09-07 19:49:00 [facility] [place] BMI Calculated 2022-09-07 19:49:00 [facility] [place] Systolic (mm Hg) 2022-01-06 15:19:00 Rao [facility] [place] Diastolic (mm Hg) 2022-01-06 15:19:00 [facility] [place] Heart Rate 2022-01-06 15:19:00 [facility] [place] Respitory Rate 2022-01-06 15:19:00 [facility] [place] Height 2022-01-06 15:19:00 160.02 cm [facility] [place] Weight 2022-01-06 15:19:00 [facility] [place] BMI Calculated 2022-01-06 15:19:00 [facility] [place] Systolic blood 2021-12-16 15:00:00 138 mm[facility]Hg[facility] pressure Diastolic blood 2021-12-16 15:00:00 82 mm[Hg] [facility] pressure Systolic (mm Hg) 2021-12-10 22:22:00 Rao [facility] [place] Diastolic (mm Hg) 2021-12-10 22:22:00 Mem [facility] [place] Heart Rate 2021-12-10 22:22:00 [facility] [place] Respitory Rate 2021-12-10 22:22:00 [facility] [place] Height 2021-12-10 22:22:00 160.02 cm [facility] [place] Weight 2021-12-10 22:22:00 [facility] [place] BMI Calculated 2021-12-10 22:22:00 [facility] [place] Systolic (mm Hg) 2021-11-19 19:00:00 [facility]ao [facility] [place] Diastolic (mm Hg) 2021-11-19 19:00:00 [facility] [place] Heart Rate 2021-11-19 19:00:00 [facility] [place] Respitory Rate 2021-11-19 19:00:00 [facility] [place] Height 2021-11-19 19:00:00 160.02 cm [facility] [place] Weight 2021-11-19 19:00:00 [facility] [place] BMI Calculated 2021-11-19 19:00:00 [facility] [place] Heart rate 2021-11-18 16:04:00 80 /[facility] Systolic (mm Hg) 2021-04-08 14:16:00 [facility] [place] Weight 2021-04-08 14:16:00 [facility] [place] Diastolic (mm Hg) 2021-04-08 14:16:00 [facility] [place] Heart Rate 2021-04-08 14:16:00 [facility] [place] Respitory Rate 2021-04-08 14:16:00 [facility] [place] Height 2021-04-08 14:16:00 162.56 cm [facility] [place] BMI Calculated 2021-04-08 14:16:00 [facility] [place] Diastolic (mm Hg) 2020-12-22 20:47:00 [facility] [place] Systolic (mm Hg) 2020-12-22 20:47:00 [facility]ao [facility] [place] Height 2020-12-22 20:47:00 162.56 cm [facility] [place] Weight 2020-12-22 20:47:00 [facility] [place] BMI Calculated 2020-12-22 20:47:00 [facility] [place] Diastolic (mm Hg) 2020-07-31 18:42:00 [facility] [place] Temperature Oral (F) 2020-07-31 18:42:00 96.9 F [facility] [place] Systolic (mm Hg) 2020-07-31 18:42:00 [facility]ao [facility] [place] Heart Rate 2020-07-31 18:42:00 [facility] [place] Respitory Rate 2020-07-31 18:42:00 [facility] [place] Height 2020-07-31 18:42:00 162.56 cm [facility] [place] Weight 2020-07-31 18:42:00 [facility] [place] BMI Calculated 2020-07-31 18:42:00 [facility] [place] Systolic (mm Hg) 2020-01-22 17:49:00 [facility]ao [facility] [place] Diastolic (mm Hg) 2020-01-22 17:49:00 [facility] [place] Heart Rate 2020-01-22 17:49:00 [facility] [place] Respitory Rate 2020-01-22 17:49:00 [facility] [place] Height 2020-01-22 17:49:00 162.56 cm [facility] [place] Weight 2020-01-22 17:49:00 [facility] [place] BMI Calculated 2020-01-22 17:49:00 [facility] [place] Heart Rate 2020-01-11 21:53:00 [facility] [place] Systolic (mm Hg) 2020-01-11 21:53:00 [facility]ao [facility] [place] Diastolic (mm Hg) 2020-01-11 21:53:00 [facility] [place] Height 2020-01-11 21:53:00 162.56 cm [facility] [place] Weight 2020-01-11 21:53:00 [facility] [place] BMI Calculated 2020-01-11 21:53:00 [facility] [place] Systolic (mm Hg) 2019-12-06 22:16:00 [facility] [place] Diastolic (mm Hg) 2019-12-06 22:16:00 [facility] [place] Heart Rate 2019-12-06 22:16:00 [facility] [place] Respitory Rate 2019-12-06 22:16:00 [facility] [place] Height 2019-12-06 22:16:00 162.56 cm [facility] [place] Weight 2019-12-06 22:16:00 [facility] [place] BMI Calculated 2019-12-06 22:16:00 [facility] [place] BMI Calculated 2019-11-09 17:41:00 [facility] [place] Height 2019-11-09 17:41:00 162.56 cm [facility] [place] Weight 2019-11-09 17:41:00 [facility] [place] Systolic (mm Hg) 2019-09-19 18:12:00 [facility] [place] Diastolic (mm Hg) 2019-09-19 18:12:00 [facility] [place] Heart Rate 2019-09-19 18:12:00 [facility] [place] Respitory Rate 2019-09-19 18:12:00 [facility] [place] Height 2019-09-19 18:12:00 162.56 cm [facility] [place] Weight 2019-09-19 18:12:00 [facility] [place] BMI Calculated 2019-09-19 18:12:00 [facility] [place] Systolic (mm Hg) 2019-08-23 19:05:00 [facility] [place] Diastolic (mm Hg) 2019-08-23 19:05:00 [facility] [place] Heart Rate 2019-08-23 19:05:00 [facility] [place] Respitory Rate 2019-08-23 19:05:00 [facility] [place] Height 2019-08-23 19:05:00 162.56 cm [facility] [place] Weight 2019-08-23 19:05:00 [facility] [place] BMI Calculated 2019-08-23 19:05:00 [facility] [place] Systolic (mm Hg) 2019-07-18 14:57:00 [facility] [place] Diastolic (mm Hg) 2019-07-18 14:57:00 [facility] [place] Heart Rate 2019-07-18 14:57:00 [facility] [place] Respitory Rate 2019-07-18 14:57:00 [facility] [place] Height 2019-07-18 14:57:00 162.56 cm [facility] [place] Weight 2019-07-18 14:57:00 [facility] [place] BMI Calculated 2019-07-18 14:57:00 [facility] [place] Procedures Procedure Date / Time Performing Clinician Source Performed [facility] 2023-08-08 18:49:00 [facility] [place] muscle(s); muscle(s) innervated by facial, trigeminal, cervical spinal and accessory nerves, bilateral (eg, for chronic migraine) ASSIGNMENT OF BENEFITS 2023-07-29 18:27:00 Doctor Unassigned, [facility] [place] [facility] 2023-05-09 14:47:00 [facility] [place] muscle(s); muscle(s) innervated by facial, trigeminal, cervical spinal and accessory nerves, bilateral (eg, for chronic migraine) [facility] 2023-01-31 16:06:00 [facility] [place] muscle(s); muscle(s) innervated by facial, trigeminal, cervical spinal and accessory nerves, bilateral (eg, for chronic migraine) [facility] 2022-11-15 19:50:00 [facility] [place] muscle(s); muscle(s) innervated by facial, trigeminal, cervical spinal and accessory nerves, bilateral (eg, for chronic migraine) [facility] 2022-07-21 21:48:00 [facility] [place] muscle(s); muscle(s) innervated by facial, trigeminal, cervical spinal and accessory nerves, bilateral (eg, for chronic migraine) EXTERNAL PROVIDER RECORDS 2022-03-08 05:01:00 Doctor Unassigned, [facility] [place] [facility] EXTERNAL MAMMOGRAM 2021-08-31 13:00:00 Doctor Unassigned, [facility] [place] [facility] Arthroplasty [facility] [place] Laminectomy [facility] Plan of Care Planned Activity Planned Date Details Comments Source Future Scheduled 2024-10-[address] [facility] 00:00:00 (procedure) [code = [facility] 03558123] Future Scheduled 2024-10-[address] [facility] 00:00:00 (procedure) [code = [facility] 86606084] Future Scheduled 2024-10-[address] [facility] Test 00:00:00 (procedure) [code = [facility] [place] [id number]] Future Scheduled 2024-10-[address] [facility] Test 00:00:00 (procedure) [code = [facility] [id number]] Future Scheduled 2023-07-[address] [facility] Test 13:28:11 malignant neoplasm of colon (procedure) [code = 137782431] Future Scheduled 2023-07-29 HEPATITIS B VACCINES [facility] Test 13:28:11 (1 of 3 - 3-dose series) [code = HEPATITIS B VACCINES (1 of 3 - 3-dose series)] Future Scheduled 2023-07-[address] [facility] Test 13:28:11 malignant neoplasm of colon (procedure) [code = 893310069] Future Scheduled 2023-07-29 Hepatitis C screening [facility] Test 13:28:11 (procedure) [code = 099793734] Future Scheduled 2023-07-[address] [facility] Test 13:28:11 malignant neoplasm of cervix (procedure) [code = 473192552] Future Scheduled 2023-07-[address] [facility] Test 13:28:11 SCREENING [code = BREAST CANCER SCREENING] Future Scheduled 2023-07-[address] [facility] Test 13:28:11 malignant neoplasm of colon (procedure) [code = 783385521] Future Scheduled 2023-07-29 SHINGLES VACCINES (1 [facility] Test 13:28:11 of 2) [code = SHINGLES VACCINES (1 of 2)] Future Scheduled 2023-07-29 Pneumococcal Vaccine: [facility] Test 13:28:11 Pediatrics (0 to 5 Years) and At-Risk Patients (6 to 64 Years) (2 - PPSV23 if available, else PCV20) [code = Pneumococcal Vaccine: Pediatrics (0 to 5 Years) and At-Risk Patients (6 to 64 Years) (2 - PPSV23 if available, else PCV20)] Future Scheduled 2023-07-[address] [facility] Test 13:28:11 malignant neoplasm of colon (procedure) [code = 541010236] Future Scheduled 2023-07-[address] [facility] Test 13:28:11 malignant neoplasm of colon (procedure) [code = 893274092] Future Scheduled 2023-07-29 COVID-19 VACCINE (3 - [facility] Test 13:28:11 Moderna series) [code = COVID-19 VACCINE (3 - Moderna series)] Future Scheduled 2023-07-29 INFLUENZA VACCINE (#1) [facility] Test 13:28:11 [code = INFLUENZA VACCINE (#1)] Future Scheduled 2023-05-[address] [facility] Test 19:30:19 malignant neoplasm of colon (procedure) [code = 443331794] Future Scheduled 2023-05-13 HEPATITIS B VACCINES [facility] Test 19:30:19 (1 of 3 - 3-dose series) [code = HEPATITIS B VACCINES (1 of 3 - 3-dose series)] Future Scheduled 2023-05-[address] [facility] Test 19:30:19 malignant neoplasm of colon (procedure) [code = 135787705] Future Scheduled 2023-05-13 Hepatitis C screening [facility] Test 19:30:19 (procedure) [code = 334548498] Future Scheduled 2023-05-13 Screening for [facility] Test 19:30:19 malignant neoplasm of cervix (procedure) [code = [id number]] Future Scheduled 2023-05-[address] [facility] Test 19:30:19 SCREENING [code = BREAST CANCER SCREENING] Future Scheduled 2023-05-[address] [facility] Test 19:30:19 malignant neoplasm of colon (procedure) [code = [id number]] Future Scheduled 2023-05-13 SHINGLES VACCINES (1 Met [facility] Test 19:30:19 of 2) [code = SHINGLES VACCINES (1 of 2)] Future Scheduled 2023-05-13 Pneumococcal Vaccine: [facility] Test 19:30:19 Pediatrics (0 to 5 Years) and At-Risk Patients (6 to 64 Years) (2 - PPSV23 if available, else PCV20) [code = Pneumococcal Vaccine: Pediatrics (0 to 5 Years) and At-Risk Patients (6 to 64 Years) (2 - PPSV23 if available, else PCV20)] Future Scheduled 2023-05-[address] [facility] Test 19:30:19 malignant neoplasm of colon (procedure) [code = 610641461] Future Scheduled 2023-05-[address] [facility] Test 19:30:19 malignant neoplasm of colon (procedure) [code = [id number]] Future Scheduled 2023-05-13 COVID-19 VACCINE (3 - [facility] Test 19:30:19 Moderna series) [code = COVID-19 VACCINE (3 - Moderna series)] Future Scheduled 2023-05-13 INFLUENZA VACCINE [facility] Test 19:30:19 [code = INFLUENZA VACCINE] Future Scheduled 2023-05-[address] [facility] Test 19:30:19 malignant neoplasm of colon (procedure) [code = 116840439] Future Scheduled 2023-05-13 HEPATITIS B VACCINES Met [facility] Test 19:30:19 (1 of 3 - 3-dose series) [code = HEPATITIS B VACCINES (1 of 3 - 3-dose series)] Future Scheduled 2023-05-[address] [facility] Test 19:30:19 malignant neoplasm of colon (procedure) [code = [id number]] Future Scheduled 2023-05-13 Hepatitis C screening [facility] Test 19:30:19 (procedure) [code = 527781536] Future Scheduled 2023-05-[address] [facility] Test 19:30:19 malignant neoplasm of cervix (procedure) [code = [id number]] Future Scheduled 2023-05-[address] [facility] Test 19:30:19 SCREENING [code = BREAST CANCER SCREENING] Future Scheduled 2023-05-[address] [facility] Test 19:30:19 malignant neoplasm of colon (procedure) [code = 288002654] Future Scheduled 2023-05-13 SHINGLES VACCINES (1 Met [facility] Test 19:30:19 of 2) [code = SHINGLES VACCINES (1 of 2)] Future Scheduled 2023-05-13 Pneumococcal Vaccine: [facility] Test 19:30:19 Pediatrics (0 to 5 Years) and At-Risk Patients (6 to 64 Years) (2 - PPSV23 if available, else PCV20) [code = Pneumococcal Vaccine: Pediatrics (0 to 5 Years) and At-Risk Patients (6 to 64 Years) (2 - PPSV23 if available, else PCV20)] Future Scheduled 2023-05-[address] [facility] Test 19:30:19 malignant neoplasm of colon (procedure) [code = 428604548] Future Scheduled 2023-05-[address] [facility] Test 19:30:19 malignant neoplasm of colon (procedure) [code = 266273205] Future Scheduled 2023-05-13 COVID-19 VACCINE (3 - [facility] Test 19:30:19 Moderna series) [code = COVID-19 VACCINE (3 - Moderna series)] Future Scheduled 2023-05-13 IN[facility]UENZA VACCINE [facility] Test 19:30:19 [code = INFLUENZA VACCINE] Future Scheduled 2023-03-25 HEPATITIS B VACCINES Met [facility] Test 04:08:08 (1 of 3 - 3-dose series) [code = HEPATITIS B VACCINES (1 of 3 - 3-dose series)] Future Scheduled 2023-03-25 Hepatitis C screening [facility] Test 04:08:08 (procedure) [code = 888188973] Future Scheduled 2023-03-[address] [facility] Test 04:08:08 malignant neoplasm of cervix (procedure) [code = 131352252] Future Scheduled 2023-03-[address] [facility] Test 04:08:08 SCREENING [code = BREAST CANCER SCREENING] Future Scheduled 2023-03-25 COLONOSCOPY SCREENING [facility] Test 04:08:08 [code = COLONOSCOPY SCREENING] Future Scheduled 2023-03-25 SHINGLES VACCINES (1 Met [facility] Test 04:08:08 of 2) [code = SHINGLES VACCINES (1 of 2)] Future Scheduled 2023-03-25 Pneumococcal Vaccine: [facility] Test 04:08:08 Pediatrics (0 to 5 Years) and At-Risk Patients (6 to 64 Years) (2 - PPSV23 if available, else PCV20) [code = Pneumococcal Vaccine: Pediatrics (0 to 5 Years) and At-Risk Patients (6 to 64 Years) (2 - PPSV23 if available, else PCV20)] Future Scheduled 2023-03-25 COVID-19 VACCINE (3 - [facility] Test 04:08:08 Booster for Moderna series) [code = COVID-19 VACCINE (3 - Booster for Moderna series)] Future Scheduled 2023-03-25 INFLUENZA VACCINE [facility] Test 04:08:08 [code = INFLUENZA VACCINE] Future Scheduled 2022-11-20 HEPATITIS B VACCINES Met [facility] Test 05:39:40 (1 of 3 - 3-dose series) [code = HEPATITIS B VACCINES (1 of 3 - 3-dose series)] Future Scheduled 2022-11-20 Hepatitis C screening [facility] Test 05:39:40 (procedure) [code = [id number]] Future Scheduled 2022-11-[address] [facility] Test 05:39:40 malignant neoplasm of cervix (procedure) [code = 898815030] Future Scheduled 2022-11-[address] [facility] Test 05:39:40 SCREENING [code = BREAST CANCER SCREENING] Future Scheduled 2022-11-20 COLONOSCOPY SCREENING [facility] Test 05:39:40 [code = COLONOSCOPY SCREENING] Future Scheduled 2022-11-20 SHINGLES VACCINES (1 Met [facility] Test 05:39:40 of 2) [code = SHINGLES VACCINES (1 of 2)] Future Scheduled 2022-11-20 Pneumococcal Vaccine: [facility] Test 05:39:40 Pediatrics (0 to 5 Years) and At-Risk Patients (6 to 64 Years) (2 - PPSV23 if available, else PCV20) [code = Pneumococcal Vaccine: Pediatrics (0 to 5 Years) and At-Risk Patients (6 to 64 Years) (2 - PPSV23 if available, else PCV20)] Future Scheduled 2022-11-20 COVID-19 VACCINE (3 - [facility] Test 05:39:40 Booster for Moderna series) [code = COVID-19 VACCINE (3 - Booster for Moderna series)] Future Scheduled 2022-11-20 INFLUENZA VACCINE [facility] Test 05:39:40 [code = INFLUENZA VACCINE] Future Scheduled 2022-11-20 HEPATITIS B VACCINES Met [facility] Test 05:39:40 (1 of 3 - 3-dose series) [code = HEPATITIS B VACCINES (1 of 3 - 3-dose series)] Future Scheduled 2022-11-20 Hepatitis C screening [facility] Test 05:39:40 (procedure) [code = 844904934] Future Scheduled 2022-11-[address] [facility] Test 05:39:40 malignant neoplasm of cervix (procedure) [code = 495308753] Future Scheduled 2022-11-[address] [facility] Test 05:39:40 SCREENING [code = BREAST CANCER SCREENING] Future Scheduled 2022-11-20 COLONOSCOPY SCREENING [facility] Test 05:39:40 [code = COLONOSCOPY SCREENING] Future Scheduled 2022-11-20 SHINGLES VACCINES (1 Met [facility] Test 05:39:40 of 2) [code = SHINGLES VACCINES (1 of 2)] Future Scheduled 2022-11-20 Pneumococcal Vaccine: [facility] Test 05:39:40 Pediatrics (0 to 5 Years) and At-Risk Patients (6 to 64 Years) (2 - PPSV23 if available, else PCV20) [code = Pneumococcal Vaccine: Pediatrics (0 to 5 Years) and At-Risk Patients (6 to 64 Years) (2 - PPSV23 if available, else PCV20)] Future Scheduled 2022-11-20 COVID-19 VACCINE (3 - [facility] Test 05:39:40 Booster for Moderna series) [code = COVID-19 VACCINE (3 - Booster for Moderna series)] Future Scheduled 2022-11-20 INFLUENZA VACCINE [facility] Test 05:39:40 [code = INFLUENZA VACCINE] Future Scheduled 2022-11-20 HEPATITIS B VACCINES [facility] Test 05:39:40 (1 of 3 - 3-dose series) [code = HEPATITIS B VACCINES (1 of 3 - 3-dose series)] Future Scheduled 2022-11-20 Hepatitis C screening [facility] Test 05:39:40 (procedure) [code = 036605063] Future Scheduled 2022-11-[address] [facility] Test 05:39:40 malignant neoplasm of cervix (procedure) [code = 498656075] Future Scheduled 2022-11-[address] [facility] Test 05:39:40 SCREENING [code = BREAST CANCER SCREENING] Future Scheduled 2022-11-20 COLONOSCOPY SCREENING [facility] Test 05:39:40 [code = COLONOSCOPY SCREENING] Future Scheduled 2022-11-20 SHINGLES VACCINES (1 Met [facility] Test 05:39:40 of 2) [code = SHINGLES VACCINES (1 of 2)] Future Scheduled 2022-11-20 Pneumococcal Vaccine: [facility] Test 05:39:40 Pediatrics (0 to 5 Years) and At-Risk Patients (6 to 64 Years) (2 - PPSV23 if available, else PCV20) [code = Pneumococcal Vaccine: Pediatrics (0 to 5 Years) and At-Risk Patients (6 to 64 Years) (2 - PPSV23 if available, else PCV20)] Future Scheduled 2022-11-20 COVID-19 VACCINE (3 - [facility] Test 05:39:40 Booster for Moderna series) [code = COVID-19 VACCINE (3 - Booster for Moderna series)] Future Scheduled 2022-11-20 INFLUENZA VACCINE Method [facility] Test 05:39:40 [code = INFLUENZA VACCINE] Future Scheduled 2022-10-02 HEPATITIS B VACCINES Met [facility] Test 08:41:32 (1 of 3 - 3-dose series) [code = HEPATITIS B VACCINES (1 of 3 - 3-dose series)] Future Scheduled 2022-10-02 Hepatitis C screening [facility] Test 08:41:32 (procedure) [code = 621719089] Future Scheduled 2022-10-[address] [facility] Test 08:41:32 malignant neoplasm of cervix (procedure) [code = 503388253] Future Scheduled 2022-10-[address] [facility] Test 08:41:32 SCREENING [code = BREAST CANCER SCREENING] Future Scheduled 2022-10-02 COLONOSCOPY SCREENING [facility] Test 08:41:32 [code = COLONOSCOPY SCREENING] Future Scheduled 2022-10-02 SHINGLES VACCINES (1 Met [facility] Test 08:41:32 of 2) [code = SHINGLES VACCINES (1 of 2)] Future Scheduled 2022-10-02 Pneumococcal Vaccine: [facility] Test 08:41:32 Pediatrics (0 to 5 Years) and At-Risk Patients (6 to 64 Years) (2 - PPSV23 if available, else PCV20) [code = Pneumococcal Vaccine: Pediatrics (0 to 5 Years) and At-Risk Patients (6 to 64 Years) (2 - PPSV23 if available, else PCV20)] Future Scheduled 2022-10-02 COVID-19 VACCINE (3 - [facility] Test 08:41:32 Booster for Moderna series) [code = COVID-19 VACCINE (3 - Booster for Moderna series)] Future Scheduled 2022-10-02 INFLUENZA VACCINE [facility] Test 08:41:32 [code = INFLUENZA VACCINE] Future Scheduled 2022-10-02 HEPATITIS B VACCINES [facility] Test 08:41:32 (1 of 3 - 3-dose series) [code = HEPATITIS B VACCINES (1 of 3 - 3-dose series)] Future Scheduled 2022-10-02 Hepatitis C screening [facility] Test 08:41:32 (procedure) [code = 957783859] Future Scheduled 2022-10-[address] [facility] Test 08:41:32 malignant neoplasm of cervix (procedure) [code = 888677528] Future Scheduled 2022-10-[address] [facility] Test 08:41:32 SCREENING [code = BREAST CANCER SCREENING] Future Scheduled 2022-10-02 COLONOSCOPY SCREENING [facility] Test 08:41:32 [code = COLONOSCOPY SCREENING] Future Scheduled 2022-10-02 SHINGLES VACCINES (1 Met [facility] Test 08:41:32 of 2) [code = SHINGLES VACCINES (1 of 2)] Future Scheduled 2022-10-02 Pneumococcal Vaccine: [facility] Test 08:41:32 Pediatrics (0 to 5 Years) and At-Risk Patients (6 to 64 Years) (2 - PPSV23 if available, else PCV20) [code = Pneumococcal Vaccine: Pediatrics (0 to 5 Years) and At-Risk Patients (6 to 64 Years) (2 - PPSV23 if available, else PCV20)] Future Scheduled 2022-10-02 COVID-19 VACCINE (3 - [facility] Test 08:41:32 Booster for Moderna series) [code = COVID-19 VACCINE (3 - Booster for Moderna series)] Future Scheduled 2022-10-02 INFLUENZA VACCINE [facility] Test 08:41:32 [code = INFLUENZA VACCINE] Future Scheduled 2022-10-02 HEPATITIS B VACCINES Met [facility] Test 08:41:32 (1 of 3 - 3-dose series) [code = HEPATITIS B VACCINES (1 of 3 - 3-dose series)] Future Scheduled 2022-10-02 Hepatitis C screening [facility] Test 08:41:32 (procedure) [code = [id number]] Future Scheduled 2022-10-[address] [facility] Test 08:41:32 malignant neoplasm of cervix (procedure) [code = 994104473] Future Scheduled 2022-10-[address] [facility] Test 08:41:32 SCREENING [code = BREAST CANCER SCREENING] Future Scheduled 2022-10-02 COLONOSCOPY SCREENING [facility] Test 08:41:32 [code = COLONOSCOPY SCREENING] Future Scheduled 2022-10-02 SHINGLES VACCINES (1 Met [facility] Test 08:41:32 of 2) [code = SHINGLES VACCINES (1 of 2)] Future Scheduled 2022-10-02 Pneumococcal Vaccine: [facility] Test 08:41:32 Pediatrics (0 to 5 Years) and At-Risk Patients (6 to 64 Years) (2 - PPSV23 if available, else PCV20) [code = Pneumococcal Vaccine: Pediatrics (0 to 5 Years) and At-Risk Patients (6 to 64 Years) (2 - PPSV23 if available, else PCV20)] Future Scheduled 2022-10-02 COVID-19 VACCINE (3 - [facility] Test 08:41:32 Booster for Moderna series) [code = COVID-19 VACCINE (3 - Booster for Moderna series)] Future Scheduled 2022-10-02 INFLUENZA VACCINE [facility] Test 08:41:32 [code = INFLUENZA VACCINE] Future Scheduled 2022-10-02 HEPATITIS B VACCINES [facility] Test 08:41:32 (1 of 3 - 3-dose series) [code = HEPATITIS B VACCINES (1 of 3 - 3-dose series)] Future Scheduled 2022-10-02 Hepatitis C screening [facility] Test 08:41:32 (procedure) [code = 868336920] Future Scheduled 2022-10-[address] [facility] Test 08:41:32 malignant neoplasm of cervix (procedure) [code = 523130611] Future Scheduled 2022-10-[address] [facility] Test 08:41:32 SCREENING [code = BREAST CANCER SCREENING] Future Scheduled 2022-10-02 COLONOSCOPY SCREENING [facility] Test 08:41:32 [code = COLONOSCOPY SCREENING] Future Scheduled 2022-10-02 SHINGLES VACCINES (1 [facility] Test 08:41:32 of 2) [code = SHINGLES VACCINES (1 of 2)] Future Scheduled 2022-10-02 Pneumococcal Vaccine: [facility] Test 08:41:32 Pediatrics (0 to 5 Years) and At-Risk Patients (6 to 64 Years) (2 - PPSV23 if available, else PCV20) [code = Pneumococcal Vaccine: Pediatrics (0 to 5 Years) and At-Risk Patients (6 to 64 Years) (2 - PPSV23 if available, else PCV20)] Future Scheduled 2022-10-02 COVID-19 VACCINE (3 - [facility] Test 08:41:32 Booster for Moderna series) [code = COVID-19 VACCINE (3 - Booster for Moderna series)] Future Scheduled 2022-10-02 INFLUENZA VACCINE Method [facility] Test 08:41:32 [code = INFLUENZA VACCINE] Future Scheduled 2022-09-11 HEPATITIS B VACCINES Met [facility] Test 06:10:07 (1 of 3 - 3-dose series) [code = HEPATITIS B VACCINES (1 of 3 - 3-dose series)] Future Scheduled 2022-09-11 Hepatitis C screening [facility] Test 06:10:07 (procedure) [code = 536996297] Future Scheduled 2022-09-[address] [facility] Test 06:10:07 malignant neoplasm of cervix (procedure) [code = 080226196] Future Scheduled 2022-09-[address] [facility] Test 06:10:07 SCREENING [code = BREAST CANCER SCREENING] Future Scheduled 2022-09-11 COLONOSCOPY SCREENING [facility] Test 06:10:07 [code = COLONOSCOPY SCREENING] Future Scheduled 2022-09-11 SHINGLES VACCINES (1 Met [facility] Test 06:10:07 of 2) [code = SHINGLES VACCINES (1 of 2)] Future Scheduled 2022-09-11 Pneumococcal Vaccine: [facility] Test 06:10:07 Pediatrics (0 to 5 Years) and At-Risk Patients (6 to 64 Years) (2 - PPSV23 if available, else PCV20) [code = Pneumococcal Vaccine: Pediatrics (0 to 5 Years) and At-Risk Patients (6 to 64 Years) (2 - PPSV23 if available, else PCV20)] Future Scheduled 2022-09-11 COVID-19 VACCINE (3 - [facility] Test 06:10:07 Booster for Moderna series) [code = COVID-19 VACCINE (3 - Booster for Moderna series)] Future Scheduled 2022-09-11 INFLUENZA VACCINE Method [facility] Test 06:10:07 [code = INFLUENZA VACCINE] Future Scheduled 2022-09-06 Pneumococcal Vaccine: [facility] Test 14:11:02 Pediatrics (0 to 5 Years) and At-Risk Patients (6 to 64 Years) (2 - PPSV23 or PCV20) [code = Pneumococcal Vaccine: Pediatrics (0 to 5 Years) and At-Risk Patients (6 to 64 Years) (2 - PPSV23 or PCV20)] Future Scheduled 2022-09-06 COVID-19 VACCINE (3 - [facility] Test 14:11:02 Booster for Moderna series) [code = COVID-19 VACCINE (3 - Booster for Moderna series)] Future Scheduled 2022-09-06 INFLUENZA VACCINE [facility] Test 14:11:02 [code = INFLUENZA VACCINE] Future Scheduled 2022-09-06 HEPATITIS B VACCINES [facility] Test 14:11:02 (1 of 3 - 3-dose series) [code = HEPATITIS B VACCINES (1 of 3 - 3-dose series)] Future Scheduled 2022-09-06 Hepatitis C screening [facility] Test 14:11:02 (procedure) [code = 528076256] Future Scheduled 2022-09-[address] [facility] Test 14:11:02 malignant neoplasm of cervix (procedure) [code = 929641007] Future Scheduled 2022-09-[address] [facility] Test 14:11:02 SCREENING [code = BREAST CANCER SCREENING] Future Scheduled 2022-09-06 COLONOSCOPY SCREENING [facility] Test 14:11:02 [code = COLONOSCOPY SCREENING] Future Scheduled 2022-09-06 SHINGLES VACCINES (1 [facility] Test 14:11:02 of 2) [code = SHINGLES VACCINES (1 of 2)] Future Scheduled 2022-09-06 Pneumococcal Vaccine: [facility] Test 14:11:02 Pediatrics (0 to 5 Years) and At-Risk Patients (6 to 64 Years) (2 - PPSV23 or PCV20) [code = Pneumococcal Vaccine: Pediatrics (0 to 5 Years) and At-Risk Patients (6 to 64 Years) (2 - PPSV23 or PCV20)] Future Scheduled 2022-09-06 COVID-19 VACCINE (3 - [facility] Test 14:11:02 Booster for Moderna series) [code = COVID-19 VACCINE (3 - Booster for Moderna series)] Future Scheduled 2022-09-06 INFLUENZA VACCINE [facility] Test 14:11:02 [code = INFLUENZA VACCINE] Future Scheduled 2022-09-06 HEPATITIS B VACCINES [facility] Test 14:11:02 (1 of 3 - 3-dose series) [code = HEPATITIS B VACCINES (1 of 3 - 3-dose series)] Future Scheduled 2022-09-06 Hepatitis C screening [facility] Test 14:11:02 (procedure) [code = 391079721] Future Scheduled 2022-09-[address] [facility] Test 14:11:02 malignant neoplasm of cervix (procedure) [code = 623691976] Future Scheduled 2022-09-[address] [facility] Test 14:11:02 SCREENING [code = BREAST CANCER SCREENING] Future Scheduled 2022-09-06 COLONOSCOPY SCREENING [facility] Test 14:11:02 [code = COLONOSCOPY SCREENING] Future Scheduled 2022-09-06 SHINGLES VACCINES (1 [facility] Test 14:11:02 of 2) [code = SHINGLES VACCINES (1 of 2)] Future Scheduled 2022-07-29 INFLUENZA VACCINE (#1) [facility] [...] [facility]procedure[facility] [code = 918352364] Future Scheduled [address] [facility] (procedure) [code = 864588160] Future Scheduled [address] [facility] 00:00:00 [facility] (procedure) [code = 670813648] Future Scheduled [address] [facility] Test 00:00:00 [facility] cerv[facility] (procedure) [code = 731712571] Future Scheduled 1983 DTAP/TDAP/TD VACCINES [facility] breast (procedure) [code = 116061861] Future Scheduled [address] [facility] 00:00:00 (combo) [code = CT Medical [facility] enter Colonography (combo)] Future Scheduled [address] [facility] 00:00:00 [facility] (procedure) [code = 005979723] Future Scheduled [address] [facility] Test 00:00:00 [facility] colon (procedure) [code = 625674858] Future Scheduled [address] [facility] Test 00:00:00 [facility] colon (procedure) [code = 549920559] Future Scheduled [address] [facility] Test 00:00:00 [facility] colon (procedure) [code = 810540937] Future Scheduled 1964 Sigmoidoscopy [code = [facility]] [facility] r Future Scheduled [address] [facility] 00:00:00 [facility] breast (procedure) [code = 699631022] Future Scheduled [address] [facility] 00:00:00 (combo) [code = CT Medical [facility] enter Colonography (combo)] Future Scheduled [address] [facility] Test 00:00:00 [facility] colon (procedure) [code = 205859361] Future Scheduled [address] [facility] Test 00:00:00 [facility] colon (procedure) [code = 449249570] Future Scheduled [address] [facility] Test 00:00:00 [facility] colon (procedure) [code = 796502210] Future Scheduled [address] [facility] Test 00:00:00 [facility] colon (procedure) [code = 073048105] Future Scheduled 1964 Sigmoidoscopy [facility]code = [facility]] [facility] Future Scheduled [address] [facility] Test 00:00:00 [facility] breast (procedure) [code = 374207759] Future Scheduled [address] [facility] Test 00:00:00 (combo) [code = CT Medical C enter Colonography (combo)] Future Scheduled [address] [facility] Test 00:00:00 [facility] colon (procedure) [code = 367311690] Future Scheduled [address] [facility] Test 00:00:00 [facility] colon (procedure) [code = 780924927] Future Scheduled [address] [facility] Test 00:00:00 [facility] colon (procedure) [code = 482166914] Future Scheduled [address] [facility] Test 00:00:00 [facility] colon (procedure) [code = 982463462] Future Scheduled 1964 Sigmoidoscopy [facility]code [facility] Future Scheduled [address] [facility] 00:00:00 [facility] breast (procedure) [code = 516337511] Future Scheduled [address] [facility] 00:00:00 (combo) [code = CT Medical C enter Colonography (combo)] Future Scheduled [address] [facility] Test 00:00:00 [facility] colon (procedure) [code = 745285590] Future Scheduled [address] [facility] Test 00:00:00 [facility] colon (procedure) [code = 112846010] Future Scheduled [address] [facility] Test 00:00:00 [facility] colon (procedure) [code = 161008742] Future Scheduled [address] [facility] Test 00:00:00 [facility] colon (procedure) [code = 908628005] Future Scheduled 1964 Sigmoidoscopy [facility]code [facility]] Medical [facility] r Encounters Start End Encounter Admission Attending Care Care Encounter Source Date/Time Date/Time Type Type Clinicians Facility Department ID 2021-06-08 Inpatient EL Eulogio, HCACL DAYS [id number] [facility] 10:30:00 Sandy [id number] [facility] 2021-06-05 Inpatient EL Eulogio, HCACL DAYS [id number] [facility] 11:30:00 Sandy [id number] [facility] 2021-05-19 Inpatient Eulogio, HCACL DAYS [id number] [facility] 07:30:00 Sandy [id number] [facility] 2021-05-15 Inpatient RODNEY [place]agen[place] [id number] [facility] 14:00:00 Sandy [id number] [facility] 2024-08-03 2024-08-03 Outpatient TONY OLGUIN [facility] [id number] Univers 13:00:00 13:00:00 [facility] 2023-11-07 2023-11-07 Outpatient MHIE MHIE [id number] Memoria 09:30:00 09:30:00 34 baldemar Gay 2023-11-07 2023-11-07 Outpatient MHIE MHIE [id number] Memoria 09:30:00 09:30:00 34 baldemar Gay 2023-09-28 2023-09-28 Outpatient MHIE MHIE [id number] Memoria 09:00:00 09:00:00 33 baldemar Gay 2023-09-28 2023-09-28 Outpatient MHIE MHIE [id number] Memoria 09:00:00 09:00:00 33 baldemar Gay 2023-08-09 2023-08-09 Ambulatory MHIE MNA [id number] Memoria 18:45:00 18:45:00 Pre-Reg Neurology 32 l Elvin Rashidann 2023-08-09 2023-08-09 Ambulatory MHIE MNA [id number] Memoria 18:45:00 18:45:00 Pre-Reg Neurology 32 l Elvin Rashidann 2023-08-09 2023-08-09 Outpatient MHIE MHIE [id number] Memoria 13:45:00 13:45:00 32 baldemar Gay 2023-08-09 2023-08-09 Outpatient MHIE MHIE [id number] Memoria 13:45:00 13:45:00 32 l Victor Hugo 2023-08-09 2023-08-09 Outpatient MHIE MHIE [id number] Memoria 13:45:00 13:45:00 32 baldemar RashidVictor Hugo 2023-08-09 2023-08-09 Outpatient MHIE MHIE [id number] Memoria 13:45:00 13:45:00 32 baldemar RashidVictor Hugo 2023-08-09 2023-08-09 Outpatient JANEE Ortega MISCHZURDO [id number] 13:45:00 13:45:00 Ab 32 Abran 2023-08-09 2023-08-09 Outpatient KEITH OrtegaSCHER MHMISCHER [id number] 13:45:00 13:45:00 Ab 32 Abran 2023-08-08 2023-08-09 Outpatient MHIE MNA [id number] Memoria 15:00:00 04:59:59 Neurology 31 baldemar Gay 2023-08-08 2023-08-09 Outpatient MHIE MNA [id number] Memoria 15:00:00 04:59:59 Neurology 31 l Elvin Gay 2023-08-08 2023-08-08 Outpatient Shannon, MHMISCHER MHMISCHER [id number] 10:00:00 23:59:59 Ab 31 Abran 2023-08-08 2023-08-08 Outpatient BINTA OrtegaMISCHER MHMISCHER [id number] 10:00:00 23:59:59 Ab 31 Abran 2023-08-08 2023-08-08 Outpatient MHIE MHIE [id number] Memoria 10:00:00 10:00:00 31 baldemar Gay 2023-08-08 2023-08-08 Outpatient MHIE MHIE [id number] Memoria 10:00:00 10:00:00 31 baldemar Gay 2023-08-08 2023-08-08 Outpatient MHIE MHIE [id number] Memoria 10:00:00 10:00:00 31 baldemar Gay 2023-08-08 2023-08-08 Outpatient MHIE MHIE [id number] Memoria 10:00:00 10:00:00 31 baldemar Gay 2023-07-29 2023-07-29 Outpatient R TONY DAS [facility] [id number] Univers 13:30:00 14:44:04 ity of [facility] 2023-07-29 2023-07-29 Office Tony Das [facility] 1.2.840.114 [id number] [facility] 13:30:00 14:00:00 Visit Bhupinder LOPEZ 350.1.13.10 it y of WOMEN'S 4.2.7.2.686 [facility] [phone] [address] 2023-07-29 2023-07-29 Orders Doctor GEORGIA 1.2.840.114 [id number] Univers 00:00:00 00:00:00 Only Unassigned, LISA 350.1.13.10 ity of [place] [facility] 4.2.7.2.686 Luis as [phone] [facility] [address] 2023-07-08 2023-07-08 Outpatient TONY OLGUIN [facility] [id number] [facility] 13:00:00 13:00:00 ity of [facility] 2023-06-27 2023-06-27 [facility]patient [facility] [id number] [facility] 05:35:00 05:35:00 Ca Choudhary [facility] 2023-06-08 2023-06-09 Outpatient MHIE MNA [id number] Memoria 19:15:00 04:59:59 Neurology 30 l Elvin Gay 2023-06-08 2023-06-09 Outpatient MHIE MNA [id number] Memoria 19:15:00 04:59:59 Neurology 30 l Elvin Gay 2023-06-08 2023-06-09 Outpatient MHIE MNA [id number] Memoria 19:15:00 04:59:59 Neurology 30 l Elvin Gay 2023-06-08 2023-06-08 Outpatient BINTA OrtegaMISCHER MHMISCHER [id number] 14:15:00 23:59:59 Ab 30 Abran 2023-06-08 2023-06-08 Outpatient KEITH OrtegaSCHER MHMISCHER [id number] 14:15:00 23:59:59 Ab 30 Abran 2023-06-08 2023-06-08 Outpatient MHIE MHIE [id number] Memoria 14:15:00 14:15:00 30 l Victor Hugo 2023-06-08 2023-06-08 Outpatient MHIE MHIE [id number] Memoria 14:15:00 14:15:00 30 baldemar Victor Hugo 2023-06-08 2023-06-08 Outpatient MHIE MHIE [id number] Memoria 14:15:00 14:15:00 30 baldemar Victor Hugo 2023-05-09 2023-05-10 Outpatient MHIE MNA [id number] Memoria 14:00:00 04:59:59 Neurology 29 l Elvin Gay 2023-05-09 2023-05-10 Outpatient MHIE MNA [id number] Memoria 14:00:00 04:59:59 Neurology 29 l Elvin Gay 2023-05-09 2023-05-10 Outpatient MHIE MNA [id number] Memoria 14:00:00 04:59:59 Neurology 29 l Elvin Gay 2023-05-09 2023-05-09 Outpatient JANEE Ortega MISCHER [id number] 09:00:00 23:59:59 Ab 29 Abran 2023-05-09 2023-05-09 [facility] [id number] 09:00:00 23:59:59 Ab 29 Abran 2023-05-09 2023-05-09 Ambulatory MHIE MNA [id number] Memoria 14:00:00 14:00:00 Pre-Reg Neurology 28 l Elvin Gay 2023-05-09 2023-05-09 Ambulatory MHIE MNA [id number] Memoria 14:00:00 14:00:00 Pre-Reg Neurology 28 l Elvin Gay 2023-05-09 2023-05-09 Ambulatory MHIE MNA [id number] Memoria 14:00:00 14:00:00 Pre-Reg Neurology 28 l Elvin Gay 2023-05-09 2023-05-09 Outpatient MHIE MHIE [id number] Memoria 09:00:00 09:00:00 29 baldemar Gay 2023-05-09 2023-05-09 Outpatient MHIE MHIE [id number] Memoria 09:00:00 09:00:00 28 baldemar Gay 2023-05-09 2023-05-09 Outpatient MHIE MHIE [id number] Memoria 09:00:00 09:00:00 29 baldemar Gay 2023-05-09 2023-05-09 Outpatient MHIE MHIE [id number] Memoria 09:00:00 09:00:00 28 baldemar Gay 2023-05-09 2023-05-09 Outpatient MHIE MHIE [id number] Memoria 09:00:00 09:00:00 29 baldemar Gay 2023-05-09 2023-05-09 Outpatient Shannon, MHMISCHER MHMISCHER [id number] 09:00:00 09:00:00 Ab 28 Abran 2023-05-09 2023-05-09 Outpatient Shannon, MHMISCHER MHMISCHER [id number] 09:00:00 09:00:00 Ab 28 Abran 2023-04-08 2023-04-08 Outpatient TONY OLGUIN [facility] [id number] Univers 13:30:00 13:30:00 [facility] 2023-02-04 2023-02-04 Outpatient Tasia DAS TONY [facility] [id number] Univers 13:30:00 13:30:00 [facility] 2023-01-31 2023-02-01 Outpatient MHIE MNA [id number] Memoria 15:30:00 05:59:59 Neurology 27 l Elvin Gay 2023-01-31 2023-02-01 Outpatient MHIE MNA [id number] Memoria 15:30:00 05:59:59 Neurology 27 l Elvin Gay 2023-01-31 2023-02-01 Outpatient MHIE MNA [id number] Memoria 15:30:00 05:59:59 Neurology 27 l Elvin Gay 2023-01-31 2023-01-31 Outpatient Shannon, MHMISCHER MHMISCHER [id number] 09:30:00 23:59:59 Ab 27 Abran 2023-01-31 2023-01-31 Outpatient Shannon, MHMISCHER MHMISCHER [id number] 09:30:00 23:59:59 Ab 27 Abran 2023-01-31 2023-01-31 Outpatient MHIE MHIE [id number] Memoria 09:30:00 09:30:00 27 baldemar Gay 2023-01-31 2023-01-31 Outpatient MHIE MHIE [id number] Memoria 09:30:00 09:30:00 27 baldemar Gay 2022-12-24 2022-12-24 Outpatient TONY OLGUIN [facility] [id number] Univers 10:45:00 10:45:00 [facility] 2022-12-24 2022-12-24 Telephone Tony Das [place] 1.2.840.114 [id number] Univers 00:00:00 00:00:00 Cam NIRMAL 350.1.13.10 [place] [facility] [id number] [facility] [address] 2022-12-17 2022-12-17 Pre Visit DASH Anderson 1.2.144.680 [id number] Univers 00:00:00 00:00:00 Outreach Lissy ACOSTA 350.1.13.10 i [place] [phone] [facility] [address] 2022-11-15 2022-11-16 Outpatient MHIE MNA [id number] Memoria 19:00:00 05:59:59 Neurology 24 l Elvin Gay 2022-11-15 2022-11-16 Outpatient MHIE MNA [id number] Memoria 19:00:00 05:59:59 Neurology 24 l Elvin Gay 2022-11-15 2022-11-16 Outpatient MHIE MNA [id number] Memoria 19:00:00 05:59:59 Neurology 24 l Elvin Gay 2022-11-15 2022-11-15 Outpatient KEITH OrtegaSCHER MHMISCHER [id number] 13:00:00 23:59:59 Ab 24 Abran 2022-11-15 2022-11-15 Outpatient KEITH OrtegaSCHER MHMISCHER [id number] 13:00:00 23:59:59 Ab 24 Abran 2022-11-15 2022-11-15 Outpatient MHIE MHIE [id number] Memoria 13:00:00 13:00:00 24 l Victor Hugo 2022-11-15 2022-11-15 Outpatient MHIE MHIE [id number] Memoria 13:00:00 13:00:00 24 l Victor Hugo 2022-11-03 2022-11-03 Documentat Saima 1.2.840.1 [id number] Methodi 00:00:00 00:00:00 ion Caprice 20799.1.[address] 3.430.2.7 Hospit a .3.142264 l .8 2022-11-03 2022-11-03 Documentat Luther Landaverde.2.840.1 [id number] 21 [id number] Methodi 00:00:00 00:00:[address]ques [address]447.[address] 3.430.2.7 Hospit a .3.768074 l .8 2022-10-29 2022-10-29 Outpatient TONY OLGUIN [facility] [id number] [facility] 13:30:00 13:30:00 [facility] 2022-09-28 2022-09-28 Ambulatory nullFlavo MNA [id number] Memoria 16:00:00 16:00:00 Pre-Reg r Neurology 26 l Elvin Gay 2022-09-28 2022-09-28 Ambulatory nullFlavo MNA [id number] Memoria 16:00:00 16:00:00 Pre-Reg r Neurology 26 l Elvin Gay 2022-09-28 2022-09-28 Ambulatory nullFlavo MNA [id number] Memoria 16:00:00 16:00:00 Pre-Reg r Neurology 26 l Elvin Rashidann 2022-09-28 2022-09-28 Outpatient KEITH OrtegaSCHER MHMISCHER [id number] 11:00:00 11:00:00 Ab Faisal Osullivan 2022-09-28 2022-09-28 Outpatient KEITH OrtegaSCHER MHMISCHER [id number] 11:00:00 11:00:00 Ab 26 Abran 2022-09-13 2022-09-13 Outpatient MHIE MHIE [id number] Memoria 13:00:00 13:00:00 26 l Victor Hugo 2022-09-13 2022-09-13 Outpatient MHIE MHIE [id number] Memoria 13:00:00 13:00:00 26 l Victor Hugo 2022-09-07 2022-09-08 Outpatient nullFlavo MNA [id number] Memoria 19:45:00 04:59:59 r Neurology 25 l Zoechiara Gay 2022-09-07 2022-09-08 Outpatient nullFlavo MNA [id number] Memoria 19:45:00 04:59:59 r Neurology 25 l Zoe [place] 2022-09-07 2022-09-08 Outpatient nullFlavo MNA [id number] Memoria 19:45:00 04:59:59 r Neurology 25 l Elvin Gay 2022-09-07 2022-09-07 Outpatient KEITH OrtegaSCHER MHMISCHER [id number] 14:45:00 23:59:59 Ab 25 Abran 2022-09-07 2022-09-07 Outpatient KEITH OrtegaSCHER MHMISCHER [id number] 14:45:00 23:59:59 Ab 25 Abran 2022-09-07 2022-09-07 Outpatient MHIE MHIE [id number] Memoria 14:45:00 14:45:00 25 baldemar Gay 2022-09-07 2022-09-07 Outpatient MHIE MHIE [id number] Memoria 14:45:00 14:45:00 25 baldemar Gay 2022-08-20 2022-08-20 Outpatient R TONY DAS [facility] [id number] Univers 10:30:00 10:30:00 ity [facility] 2022-08-13 2022-08-13 Pre Visit DASH Anderson 1.2.031.448 [id number] Univers 00:00:00 00:00:00 Outreach Lissy ACOSTA 350.1.13.10 [place] [phone] [address] 2022-07-21 2022-07-22 Outpatient nullFlavo MNA [id number] Memoria 21:00:00 04:59:59 r Neurology 23 l Elvin Gay 2022-07-21 2022-07-22 Outpatient nullFlavo MNA [id number] Memoria 21:00:00 04:59:59 r Neurology 23 l Elvin Gay 2022-07-21 2022-07-22 Outpatient nullFlavo MNA [id number] Memoria 21:00:00 04:59:59 r Neurology 23 l Elvin Gay 2022-07-21 2022-07-21 Outpatient KEITH OrtegaSCHER MHMISCHER [id number] 16:00:00 23:59:59 Ab 23 [facility] 2022-07-21 2022-07-21 Outpatient Shannon KEITHSCHER MHMISCHER [id number] 16:00:00 23:59:59 Ab 23 Abran 2022-07-21 2022-07-21 Outpatient MHIE MHIE [id number] Memoria 16:00:00 16:00:00 23 baldemar Gay 2022-07-21 2022-07-21 Outpatient MHIE MHIE [id number] Memoria 16:00:00 16:00:00 23 l Victor Hugo 2022-04-13 2022-04-13 Ambulatory nullFlavo MNA [id number] Memoria 18:15:00 18:15:00 Pre-Reg r Neurology 22 l Elvin Gay 2022-04-13 2022-04-13 Ambulatory nullFlavo MNA [id number] Memoria 18:15:00 18:15:00 Pre-Reg r Neurology 22 l Elvin [place] 2022-04-13 2022-04-13 Ambulatory nullFlavo MNA [id number] Memoria 18:15:00 18:15:00 Pre-Reg r Neurology 22 l Elvin Gay 2022-04-13 2022-04-13 Outpatient MHIE BINTAIE [id number] Memoria 13:15:00 13:15:00 22 baldemar Gay 2022-04-13 2022-04-13 Outpatient MHIE MHIE [id number] Memoria 13:15:00 13:15:00 22 baldemar Gay 2022-04-13 2022-04-13 Outpatient KEITH OrtegaSCHER MHMISCHER [id number] 13:15:00 13:15:00 Ab 22 Abran 2022-04-13 2022-04-13 Outpatient KEITH OrtegaSCHER MHMISCHER [id number] 13:15:00 13:15:00 Ab 22 [facility] 2022-03-08 2022-03-08 Orders Doctor GEORGIA 1.2.840.114 [id number] 00:00:00 00:00:00 Only Unassigned, LISA 350.1.13.10 ity of [place] [facility] 4.2.7.2.686 Luis as [phone] [place] [id number] [address] 2022-02-11 2022-02-12 Outpatient nullFlavo MNA [id number] Memoria 18:00:00 04:59:59 r Neurology 19 l Elvin Gay 2022-02-11 2022-02-12 Outpatient nullFlavo MNA [id number] Memoria 18:00:00 04:59:59 r Neurology 19 l Elvin Gay 2022-02-11 2022-02-12 Outpatient nullFlavo MNA [id number] Memoria 18:00:00 04:59:59 r Neurology 19 l Elvin Gay 2022-02-11 2022-02-11 Outpatient BINTA OrtegaLASCHER MISCHER [id number] 13:00:00 23:59:59 Ab 19 Abran 2022-02-11 2022-02-11 Outpatient BINTA OrtegaLASCHER MISCHER [id number] 13:00:00 23:59:59 Ab 19 Abran 2022-02-11 2022-02-11 Outpatient MHIE MHIE [id number] Memoria 13:00:00 13:00:00 19 baldemar Gay 2022-02-11 2022-02-11 Outpatient MHIE MHIE [id number] Memoria 13:00:00 13:00:00 19 baldemar Gay 2022-01-06 2022-01-07 Outpatient nullFlavo MNA [id number] Memoria 15:15:00 05:59:59 r Neurology 21 l Elvin Gay 2022-01-06 2022-01-07 Outpatient nullFlavo MNA [id number] Memoria 15:15:00 05:59:59 r Neurology 21 l Elvin Gay 2022-01-06 2022-01-07 Outpatient nullFlavo MNA [id number] Memoria 15:15:00 05:59:59 r Neurology 21 l Elvin Gay 2022-01-06 2022-01-06 Outpatient KEITH OrtegaSCHER MHMISCHER [id number] 09:15:00 23:59:59 Ab 21 Abran 2022-01-06 2022-01-06 Outpatient KEITH OrtegaSCHER MHMISCHER [id number] 09:15:00 23:59:59 Ab 21 Abran 2022-01-06 2022-01-06 Outpatient MHIE MHIE [id number] Memoria 09:15:00 09:15:00 21 l [place] 2022-01-06 2022-01-06 Outpatient IE IE [id number] Memoria 09:15:00 09:15:00 21 l Victor Hugo 2021-12-16 2021-12-16 Treatment Beverly Cartagena 1.2.840.1 [id number] Methodi 09:00:00 10:00:00 [address] 3.430.2.7 Hospit a .3.269976 l .8 2021-12-16 2021-12-16 Travel 1.2.840.1 1.2.302.121 [id number] Methodi 00:00:00 00:00:[address] 3.430.2.7 0.2.7.3.698 Ho spita .3.783313 084.8 l .8 2021-12-10 2021-12-11 Outpatient nullFlavo MNA [id number] Memoria 22:15:00 05:59:59 r Neurology 20 l Elvin Gay 2021-12-10 2021-12-11 Outpatient nullFlavo MNA [id number] Memoria 22:15:00 05:59:59 r Neurology 20 l Elvin Gay 2021-12-10 2021-12-11 Outpatient nullFlavo MNA [id number] Memoria 22:15:00 05:59:59 r Neurology 20 l Elvin Rashidann 2021-12-10 2021-12-10 Outpatient KEITH OrtegaSCHZURDO MHMISCHER [id number] 16:15:00 23:59:59 Ab 20 Abran 2021-12-10 2021-12-10 Outpatient KEITH OrtegaSCHER MHMISCHER [id number] 16:15:00 23:59:59 Ab 20 Abran 2021-12-10 2021-12-10 Ambulatory nullFlavo MNA [id number] Memoria 22:15:00 22:15:00 Pre-Reg r Neurology 17 l Elvin Rashidann 2021-12-10 2021-12-10 Ambulatory nullFlavo MNA [id number] Memoria 22:15:00 22:15:00 Pre-Reg r Neurology 17 l Elvin Gay 2021-12-10 2021-12-10 Ambulatory nullFlavo MNA [id number] Memoria 22:15:00 22:15:00 Pre-Reg r Neurology 17 l Elvin Gay 2021-12-10 2021-12-10 Outpatient MHIE IE [id number] Memoria 16:15:00 16:15:00 20 l [place] 2021-12-10 2021-12-10 Outpatient MHIE IE [id number] Memoria 16:15:00 16:15:00 17 l Victor Hugo 2021-12-10 2021-12-10 Outpatient MHIE IE [id number] Memoria 16:15:00 16:15:00 20 l Victor Hugo 2021-12-10 2021-12-10 Outpatient MHIE IE [id number] Memoria 16:15:00 16:15:00 17 baldemar [place] 2021-12-10 2021-12-10 [facility] [id number] 16:15:00 16:15:00 Ab 17 Abran 2021-12-10 2021-12-10 [facility] [id number] 16:15:00 16:15:00 Ab 17 Abran 2021-11-30 2021-11-30 Treatment EulogioAme patelh Candice 1.2.840.1 [id number] Methodi 09:00:00 10:00:00 Caprice [address]de [address] 3.430.2.7 Hospit a .3.457339 l .8 2021-11-30 2021-11-30 Travel 1.2.840.1 1.2.330.892 [id number] Methodi 00:00:00 00:00:[address] 3.430.2.7 0.2.7.3.698 Ho spita .3.530260 084.8 l .8 2021-11-19 2021-11-20 Outpatient nullFlavo MNA [id number] Memoria 19:00:00 05:59:59 r Neurology 18 l Elvin Gay 2021-11-19 2021-11-20 Outpatient nullFlavo MNA [id number] Memoria 19:00:00 05:59:59 r Neurology 18 l Elvin Gay 2021-11-19 2021-11-20 Outpatient nullFlavo MNA [id number] Memoria 19:00:00 05:59:59 r Neurology 18 l Elvin Gay 2021-11-19 2021-11-19 Outpatient Shannon, MHMISCHER MHMISCHER [id number] 13:00:00 23:59:59 Ab 18 Abran 2021-11-19 2021-11-19 Outpatient Shannon, MHMISCHER MHMISCHER [id number] 13:00:00 23:59:59 Ab 18 Abran 2021-11-19 2021-11-19 Outpatient MHIE MHIE [id number] Memoria 13:00:00 13:00:00 18 l Victor Hugo 2021-11-19 2021-11-19 Outpatient MHIE MHIE [id number] Memoria 13:00:00 13:00:00 18 l Victor Hugo 2021-11-18 2021-11-18 Treatment Beverly Cartagenagail 1.2.840.1 [id number] Methodi 10:00:00 11:00:00 Nenita Marshall 58554.1.[address] 3.430.2.7 Hospit a .3.455368 l .8 2021-11-17 2021-11-17 Evaluation Beverly Cartagenagail 1.2.840. 1 [id number] Methodi 08:00:00 09:00:00 [address]de [address] 3.430.2.7 Hospit a .3.467349 l .8 2021-11-17 2021-11-17 Plan of 1.2.840.1 [id number] 389849 9108 Methodi 00:00:00 00:00:[address] Documentat 3.430.2.7 Hos rene ion .3.763495 l .8 2021-11-17 2021-11-17 Travel 1.2.840.1 1.2.743.291 6272 [id number] Methodi 00:00:00 00:00:[address] 3.430.2.7 0.2.7.3.698 Ho spita .3.815851 084.8 l .8 2021-11-12 2021-11-12 Transcribe Eulogio, 1.2.840.1 [id number] 425 [id number] Methodi 00:00:00 00:00:00 Orders Beverly 17801.1.[address] Candice 3.430.2.7 Hospit a .3.438769 l .8 2021-11-12 2021-11-12 Travel 1.2.840.1 1.2.951.867 [id number] Methodi 00:00:00 00:00:[address] 3.430.2.7 0.2.7.3.698 Ho spita .3.948547 084.8 l .8 2021-09-04 2021-09-06 Outside nullFlavo MNA [id number] Memoria 14:17:35 04:59:59 Medical r Neurology 02 l Records Elvin Gay 2021-09-04 2021-09-06 Outside nullFlavo MNA [id number] Memoria 14:17:35 04:59:59 Medical r Neurology 02 l Records Elvin Gay 2021-09-04 2021-09-06 Outside nullFlavo MNA [id number] Memoria 14:17:35 04:59:59 Medical r Neurology 02 l Records Elvin Gay 2021-09-04 2021-09-05 Outpatient MHMISCHER MHMISCHER [id number] 09:17:35 23:59:59 02 2021-09-04 2021-09-05 Outpatient MHMISCHER MHMISCHER [id number] 09:17:35 23:59:59 02 2021-08-31 2021-08-31 Outpatient EULOGIO, [facility] [id number] [address] [place] 00:00:00 00:00:00 BEVERLY 800 Method i 2021-08-27 2021-08-27 Outpatient EULOGIO, [facility] [id number] [address] [place] 00:00:00 00:00:00 BEVERLY 462 Method i 2021-08-24 2021-08-26 Outside nullFlavo MNA [id number] Memoria 14:49:32 04:59:59 Medical r Neurology 01 l Records Elvin Gay 2021-08-24 2021-08-26 Outside nullFlavo MNA [id number] Memoria 14:49:32 04:59:59 Medical r Neurology 01 l Records Elvin Rashidann 2021-08-24 2021-08-26 Outside nullFlavo MNA [id number] Memoria 14:49:32 04:59:59 Medical r Neurology 01 l Records Elvin Rashidann 2021-08-24 2021-08-25 Outpatient MHMISCHER MHMISCHER [id number] 09:49:32 23:59:59 2021-08-24 2021-08-25 Outpatient MHMISCHER MHMISCHER [id number] 09:49:32 23:59:59 2021-08-24 2021-08-24 Outpatient EULOGIO, [facility] [id number] [address] [place] 00:00:00 00:00:00 BEVERLY 384 Method i 2021-08-20 2021-08-20 Outpatient EULOGIO, [facility] [id number] [address] [place] 00:00:00 00:00:00 BEVERLY 342 Method i 2021-08-19 2021-08-19 Outpatient EULOGIO, [facility] [id number] [place] 00:00:00 00:00:00 BEVERLY 343 Method i 2021-08-14 2021-08-14 Office Tony Das AKTERESO Fletcher 1.2.840.114 [id number] [facility] 10:12:38 10:59:24 Visit Bhupinder Lopez 350.1.13.10 it y of Women's [id number] [facility] [id number] [facility] [address] 2021-08-14 2021-08-14 Outpatient R TONY DAS [facility] [id number] [facility] 10:15:00 10:15:00 ity of [facility] 2021-08-10 2021-08-10 Outpatient EULOGIO, [facility] [id number] [address] [place] 00:00:00 00:00:00 BEVERLY 230 [facility] 2021-08-06 2021-08-06 Outpatient EULOGIO, [facility] [id number] [address] [place] 00:00:00 00:00:00 BEVERLY 205 [facility] 2021-07-30 2021-07-30 Outpatient EULOGIO, [facility] [id number] [address] [place] 00:00:00 00:00:00 BEVERLY 805 [facility] 2021-07-27 2021-07-27 Outpatient EULOGIO, [facility] [id number] [address] [place] 00:00:00 00:00:00 BEVERLY 774 [facility] 2021-07-23 2021-07-23 Outpatient EULOGIO, [facility] [id number] [address] [place] 00:00:00 00:00:00 BEVERLY 727 [facility] 2021-07-20 2021-07-20 Outpatient EULOGIO, [facility] [id number] [address] [place] 00:00:00 00:00:00 BEVERLY 774 [facility] 2021-07-09 2021-07-09 Outpatient EULOGIO, [facility] [id number] [address] [place] 00:00:00 00:00:00 BEVERLY 643 [facility] i 2021-07-08 2021-07-08 Outpatient EULOGIO, [facility] [id number] [address] [place] 00:00:00 00:00:00 BEVERLY 592 [facility] 2021-07-02 2021-07-02 Outpatient EULOGIO, [facility] [id number] [address] [place] 00:00:00 00:00:00 BEVERLY 982 [facility] 2021-06-23 2021-06-23 Outpatient EULOGIO, [facility] [id number] [address] [place] 00:00:00 00:00:00 BEVERLY 244 [facility] 2021-06-09 2021-06-11 Inpatient EL Dweik, [facility] MEDI.01 [id number] [facility] 16:03:00 15:30:00 Reji [id number] [facility] 2021-06-09 2021-06-09 Outpatient Jason Bearden [facility] [id number] [facility] 16:08[facility]08[facility]00 [facility] 2021-[facility]-08 2021-04-09 Outpatient nullFlavo MNA [id number] [facility] 14:00:00 04:59:59 r Neurology 16 l Elvin Rashidann 2021-04-08 2021-04-09 Outpatient nullFlavo MNA [id number] [facility] 14:00:00 04:59:59 r Neurology 16 l Elvin Rashidann 2021-04-08 2021-04-09 Outpatient nullFlavo MNA [id number] [facility] 14:00:00 04:59:59 r Neurology 16 l Elvin [place] 2021-04-08 2021-04-08 Outpatient KEITH OrtegaSCHER MHMISCHER [id number] 09:00:00 23:59:59 Ab 16 Abran 2021-04-08 2021-04-08 Outpatient KEITH OrtegaSCHER MHMISCHER [id number] 09:00:00 23:59:59 Ab 16 Abran 2021-04-08 2021-04-08 Outpatient MHIE MHIE [id number] [facility] 09:00:00 09:00:00 16 baldemar Gay 2021-04-08 2021-04-08 Outpatient MHIE MHIE [id number] [facility] 09:00:00 09:00:00 16 baldemar RashidVictor Hugo 2020-12-26 2020-12-28 Outside nullFlavo MNA [id number] [facility] 17:32:20 05:59:59 Medical r Neurology 00 l Records Elvin Rashidann 2020-12-26 2020-12-28 Outside nullFlavo MNA [id number] [facility] 17:32:20 05:59:59 Medical r Neurology 00 l Records Elvin Rashidann 2020-12-26 2020-12-28 Outside nullFlavo MNA [id number] [facility] 17:32:20 05:59:59 Medical r Neurology 00 l Records Zoe Victor Hugo 2020-12-26 2020-12-27 Outpatient MHMISCHER MHMISCHER [id number] 11:32:20 23:59:59 00 2020-12-26 2020-12-27 Outpatient MHMISCHER MHMISCHER [id number] 11:32:20 23:59:59 00 2020-12-22 2020-12-23 Outpatient nullFlavo MNA [id number] [facility] 20:30:00 05:59:59 r Neurology 15 baldemar Gay 2020-12-22 2020-12-23 Outpatient nullFlavo MNA [id number] [facility] 20:30:00 05:59:59 r Neurology 15 baldemar Gay 2020-12-22 2020-12-23 Outpatient nullFlavo MNA [id number] [facility] 20:30:00 05:59:59 r Neurology 15 baldemar Gay 2020-12-22 2020-12-22 Outpatient BINTA OrtegaLASCHER MISCHER [id number] 14:30:00 23:59:59 Ab 15 Abran 2020-12-22 2020-12-22 Outpatient BINTA OrtegaLASCHER MISCHER [id number] 14:30:00 23:59:59 Ab 15 Abran 2020-12-22 2020-12-22 Outpatient MHIE MHIE [id number] Memoria 14:30:00 14:30:00 15 baldemar Gay 2020-12-22 2020-12-22 Outpatient MHIE MHIE [id number] Memoria 14:30:00 14:30:00 15 baldemar Gay 2020-12-04 2020-12-04 Ambulatory nullFlavo MNA [id number] Memoria 19:15:00 19:15:00 Pre-Reg r Neurology 14 baldemar Gay 2020-12-04 2020-12-04 Ambulatory nullFlavo MNA [id number] Memoria 19:15:00 19:15:00 Pre-Reg r Neurology 14 baldemar Gay 2020-12-04 2020-12-04 Ambulatory nullFlavo MNA [id number] Memoria 19:15:00 19:15:00 Pre-Reg r Neurology 14 baldemar Gay 2020-12-04 2020-12-04 Outpatient MHIE MHIE [id number] Memoria 13:15:00 13:15:00 14 baldemar Gay 2020-12-04 2020-12-04 Outpatient MHIE MHIE [id number] Memoria 13:15:00 13:15:00 14 baldemar Gay 2020-12-04 2020-12-04 Outpatient Shannon MHMISCHER MHMISCHER [id number] 13:15:00 13:15:00 Ab 14 Abran 2020-12-04 2020-12-04 Outpatient Shannon, MHMISCHER MHMISCHER [id number] 13:15:00 13:15:00 Ab 14 Abran 2020-09-30 2020-09-30 [facility] [id number] [address] [place] [address] 00:00:00 00:00:00 [place]GE 918 Method i 2020-07-31 2020-08-01 Outpatient nullFlavo MNA [id number] Memoria 18:15:00 04:59:59 r Neurology 13 l Zoe Victor Hugo 2020-07-31 2020-08-01 Outpatient nullFlavo MNA [id number] Memoria 18:15:00 04:59:59 r Neurology 13 l Zoe Victor Hugo 2020-07-31 2020-08-01 Outpatient nullFlavo MNA [id number] Memoria 18:15:00 04:59:59 r Neurology 13 l Zoe Victor Hugo 2020-07-31 2020-07-31 Outpatient BINTA OrtegaMISCHER MHMISCHER [id number] 13:15:00 23:59:59 Ab 13 Abran 2020-07-31 2020-07-31 Outpatient Shannon, MHMISCHER MHMISCHER [id number] 13:15:00 23:59:59 Ab 13 Abran 2020-07-31 2020-07-31 Outpatient MHIE MHIE [id number] Memoria 13:15:00 13:15:00 13 baldemar [place] 2020-07-31 2020-07-31 Outpatient MHIE MHIE [id number] Memoria 13:15:00 13:15:00 13 l Victor Hugo 2020-07-29 2020-07-29 Ambulatory nullFlavo MNA [id number] Memoria 16:15:00 16:15:00 Pre-Reg r Neurology 12 l Zoe [place] 2020-07-29 2020-07-29 Ambulatory nullFlavo MNA [id number] Memoria 16:15:00 16:15:00 Pre-Reg r Neurology 12 l Elvin Gay 2020-07-29 2020-07-29 Ambulatory nullFlavo MNA [id number] Memoria 16:15:00 16:15:00 Pre-Reg r Neurology 12 l Elvin Gya 2020-07-29 2020-07-29 Outpatient Shannon, MHMISCHER MHMISCHER [id number] 11:15:00 11:15:00 Ab 12 Abran 2020-07-29 2020-07-29 Outpatient KEITH OrtegaSCHER MHMISCHER [id number] 11:15:00 11:15:00 Ab 12 Abran 2020-06-06 2020-06-06 Ambulatory nullFlavo MNA [id number] Memoria 18:00:00 18:00:00 Pre-Reg r Neurology 11 l Elvin Gay 2020-06-06 2020-06-06 Ambulatory nullFlavo MNA [id number] Memoria 18:00:00 18:00:00 Pre-Reg r Neurology 11 l Elvin Gay 2020-06-06 2020-06-06 Ambulatory nullFlavo MNA [id number] Memoria 18:00:00 18:00:00 Pre-Reg r Neurology 11 l Elvin Gay 2020-06-06 2020-06-06 Outpatient MHIE MHIE [id number] Memoria 13:00:00 13:00:00 12 l Victor Hugo 2020-06-06 2020-06-06 Outpatient MHIE MHIE [id number] Memoria 13:00:00 13:00:00 11 l [place] 2020-06-06 2020-06-06 Outpatient MHIE MHIE [id number] Memoria 13:00:00 13:00:00 12 l Victor Hugo 2020-06-06 2020-06-06 Outpatient MHIE MHIE [id number] Memoria 13:00:00 13:00:00 11 [place] 2020-06-06 2020-06-06 Outpatient Shannon, MHMISCHER MHMISCHER [id number] 13:00:00 13:00:00 Ab 11 Abran 2020-06-06 2020-06-06 Outpatient Shannon, MHMISCHER MHMISCHER [id number] 13:00:00 13:00:00 Ab 11 Abran 2020-03-12 2020-03-13 Outpatient nullFlavo MNA [id number] Memoria 18:45:00 04:59:59 r Neurology 09 l Elvin Victor Hugo 2020-03-12 2020-03-13 Outpatient nullFlavo MNA [id number] Memoria 18:45:00 04:59:59 r Neurology 09 l Elvin Victor Hugo 2020-03-12 2020-03-13 Outpatient nullFlavo MNA [id number] Memoria 18:45:00 04:59:59 r Neurology 09 l Elvin [place] 2020-03-12 2020-03-12 Outpatient BINTA OrtegaMISCHER MHMISCHER [id number] 13:45:00 23:59:59 Ab 09 [facility] 2020-03-12 2020-03-12 Outpatient Shannon MHMISCHER MHMISCHER [id number] 13:45:00 23:59:59 Ab 09 [facility] 2020-03-12 2020-03-12 Outpatient MHIE MHIE [id number] Memoria 13:45:00 13:45:00 09 [facility] 2020-03-12 2020-03-12 Outpatient MHIE MHIE [id number] Memoria 13:45:00 13:45:00 09 baldemar [place] 2020-01-22 2020-01-23 Outpatient nullFlavo MNA [id number] Memoria 17:45:00 05:59:59 r Neurology 10 l Elvin [place] 2020-01-22 2020-01-23 Outpatient nullFlavo MNA [id number] Memoria 17:45:00 05:59:59 r Neurology 10 l Elvin [place] 2020-01-22 2020-01-23 Outpatient nullFlavo MNA [id number] Memoria 17:45:00 05:59:59 r Neurology 10 l Elvin [place] 2020-01-22 2020-01-22 Outpatient BINTA OrtegaMISCHER MHMISCHER [id number] 11:45:00 23:59:59 Ab Rashmi [facility] 2020-01-22 2020-01-22 Outpatient BINTA OrtegaMISCHER MHMISCHER [id number] 11:45:00 23:59:59 Ab 10 [facility] 2020-01-22 2020-01-22 Outpatient MHIE MHIE [id number] Memoria 11:45:00 11:45:00 10 [facility] 2020-01-22 2020-01-22 Outpatient MHIE MHIE [id number] Memoria 11:45:00 11:45:00 10 l [place] 2020-01-11 2020-01-12 Outpatient nullFlavo MNA [id number] Memoria 20:15:00 05:59:59 r Neurology 08 l Elvin Gay 2020-01-11 2020-01-12 Outpatient nullFlavo MNA [id number] Memoria 20:15:00 05:59:59 r Neurology 08 l Elvin Gay 2020-01-11 2020-01-12 Outpatient nullFlavo MNA [id number] Memoria 20:15:00 05:59:59 r Neurology 08 l Zoechiara Rashidann 2020-01-11 2020-01-11 [id number] 14:15:00 23:59:59 Ab 08 Abran 2020-01-11 2020-01-11 [facility] [id number] 14:15:00 23:59:59 Ab 08 Abran 2020-01-11 2020-01-11 Ambulatory nullFlavo MNA [id number] Memoria 20:15:00 20:15:00 Pre-Reg r Neurology 07 l Zoe Victor Hugo 2020-01-11 2020-01-11 Ambulatory nullFlavo MNA [id number] Memoria 20:15:00 20:15:00 Pre-Reg r Neurology 07 l Zoe [place] 2020-01-11 2020-01-11 Ambulatory nullFlavo MNA [id number] Memoria 20:15:00 20:15:00 Pre-Reg r Neurology 07 l Zoe [place] 2020-01-11 2020-01-11 Outpatient MHIE IE [id number] Memoria 14:15:00 14:15:00 08 baldemar [place] 2020-01-11 2020-01-11 Outpatient MHIE BINTAIE [id number] Memoria 14:15:00 14:15:00 07 Victor Hugo 2020-01-11 2020-01-11 Outpatient MHIE BINTAIE [id number] Memoria 14:15:00 14:15:00 08 baldemar [place] 2020-01-11 2020-01-11 Outpatient MHIE BINTAIE [id number] Memoria 14:15:00 14:15:00 07 l Victor Hugo 2020-01-11 2020-01-11 Out[facility] Shannon[facility] [id number] 14:15:00 14:15:00 Ab 07 Abran 2020-01-11 2020-01-11 [facility] [id number] 14:15:00 14:15:00 Ab 07 Abran 2019-12-06 2019-12-07 Outpatient nullFlavo MNA [id number] Memoria 22:00:00 05:59:59 r Neurology 06 l Zoe Victor Hugo 2019-12-06 2019-12-07 Outpatient nullFlavo MNA [id number] Memoria 22:00:00 05:59:59 r Neurology 06 l Zoe [place] 2019-12-06 2019-12-07 Outpatient nullFlavo MNA [id number] Memoria 22:00:00 05:59:59 r Neurology 06 l Zoe Victor Hugo 2019-12-06 2019-12-06 Outpatient Shannon, [facility] [id number] 16:00:00 23:59:59 Ab 06 Abran 2019-12-06 2019-12-06 [facility] [id number] 16:00:00 23:59:59 Ab 06 Abran 2019-12-06 2019-12-06 Outpatient MHIE MHIE [id number] Memoria 16:00:00 16:00:00 06 baldemar Gay 2019-12-06 2019-12-06 Outpatient MHIE MHIE [id number] Memoria 16:00:00 16:00:00 06 baldemar Victor [place] 2019-12-05 2019-12-05 Ambulatory nullFlavo MNA [id number] Memoria 14:15:00 14:15:00 Pre-Reg r Neurology 05 l Zoe [place] 2019-12-05 2019-12-05 Ambulatory nullFlavo MNA [id number] Memoria 14:15:00 14:15:00 Pre-Reg r Neurology 05 l Zoe Victor Hugo 2019-12-05 2019-12-05 Ambulatory nullFlavo MNA [id number] Memoria 14:15:00 14:15:00 Pre-Reg r Neurology 05 l Zoe [place] 2019-12-05 2019-12-05 Outpatient MHIE MHIE [id number] Memoria 08:15:00 08:15:00 05 l [place] 2019-12-05 2019-12-05 Outpatient MHIE MHIE [id number] Memoria 08:15:00 08:15:00 05 baldemar Gay 2019-12-05 2019-12-05 Outpatient BINTA OrtegaMISCHER MHMISCHER [id number] 08:15:00 08:15:00 Ab 05 Abran 2019-12-05 2019-12-05 Outpatient BINTA OrtegaMISCHER MHMISCHER [id number] 08:15:00 08:15:00 Ab Lenin Osullivan 2019-11-16 2019-11-16 Ambulatory nullFlavo MNA [id number] Memoria 19:00:00 19:00:00 Pre-Reg r Neurology 03 baldemar Oconnor [place] 2019-11-16 2019-11-16 Ambulatory nullFlavo MNA [id number] Memoria 19:00:00 19:00:00 Pre-Reg r Neurology 03 baldemar Oconnor [place] 2019-11-16 2019-11-16 Ambulatory nullFlavo MNA [id number] Memoria 19:00:00 19:00:00 Pre-Reg r Neurology 03 baldemar Oconnor [place] 2019-11-16 2019-11-16 Outpatient MHIE MHIE [id number] Memoria 13:00:00 13:00:00 03 baldemar [place] 2019-11-16 2019-11-16 Outpatient MHIE MHIE [id number] Memoria 13:00:00 13:00:00 03 baldemar [place] 2019-11-16 2019-11-16 Outpatient Shannon, MHMISCHER MHMISCHER [id number] 13:00:00 13:00:00 Ab Abran 2019-11-16 2019-11-16 Outpatient Shannon, MHMISCHER MHMISCHER [id number] 13:00:00 13:00:00 Ab 03 Abran 2019-11-09 2019-11-10 Outpatient nullFlavo MNA [id number] Memoria 17:30:00 05:59:59 r Neurology 04 baldemar Gay 2019-11-09 2019-11-10 Outpatient nullFlavo MNA [id number] Memoria 17:30:00 05:59:59 r Neurology 04 baldemar Gay 2019-11-09 2019-11-10 Outpatient nullFlavo MNA [id number] Memoria 17:30:00 05:59:59 r Neurology 04 baldemar Gay 2019-11-09 2019-11-09 Outpatient KEITH OrtegaSCHER MISCHER [id number] 11:30:00 23:59:59 Ab 04 Abran 2019-11-09 2019-11-09 Outpatient KEITH OrtegaSCHER MISCHER [id number] 11:30:00 23:59:59 Ab 04 Abran 2019-11-09 2019-11-09 Outpatient MHIE MHIE [id number] Memoria 11:30:00 11:30:00 04 baldemar Gay 2019-11-09 2019-11-09 Outpatient MHIE MHIE [id number] Memoria 11:30:00 11:30:00 04 baldemar [place] 2019-09-19 2019-09-20 Outpatient nullFlavo MNA [id number] Memoria 18:00:00 04:59:59 r Neurology 02 baldemar Oconnor [place] 2019-09-19 2019-09-20 Outpatient nullFlavo MNA [id number] Memoria 18:00:00 04:59:59 r Neurology 02 baldemar Oconnor [place] 2019-09-19 2019-09-20 Outpatient nullFlavo MNA [id number] Memoria 18:00:00 04:59:59 r Neurology 02 baldemar Oconnor [place] 2019-09-19 2019-09-19 Outpatient KEITH OrtegaSCHER MISCHER [id number] 13:00:00 23:59:59 Ab 02 Abran 2019-09-19 2019-09-19 Outpatient KEITH OrtegaSCHER MISCHER [id number] 13:00:00 23:59:59 Ab 02 Abran 2019-09-19 2019-09-19 Outpatient MHIE MHIE [id number] Memoria 13:00:00 13:00:00 02 baldemar [place] 2019-09-19 2019-09-19 Outpatient MHIE MHIE [id number] Memoria 13:00:00 13:00:00 02 baldemar [place] 2019-08-23 2019-08-24 Outpatient nullFlavo MNA [id number] Memoria 18:30:00 04:59:59 r Neurology 01 baldemar Oconnor Victor [place] 2019-08-23 2019-08-24 Outpatient nullFlavo MNA [id number] Memoria 18:30:00 04:59:59 r Neurology 01 l Elvin Gay 2019-08-23 2019-08-24 Outpatient nullFlavo MNA [id number] Memoria 18:30:00 04:59:59 r Neurology 01 l Elvin Gay 2019-08-23 2019-08-23 Outpatient KEITH OrtegaSCHER MHMISCHER [id number] 13:30:00 23:59:59 Ab Abran 2019-08-23 2019-08-23 Outpatient KEITH OrtegaSCHER MHMISCHER [id number] 13:30:00 23:59:59 Ab Abran 2019-08-23 2019-08-23 Outpatient MHIE MHIE [id number] Memoria 13:30:00 13:30:00 01 baldemar [place] 2019-08-23 2019-08-23 Outpatient MHIE MHIE [id number] Memoria 13:30:00 13:30:00 01 baldemar [place] 2019-07-18 2019-07-19 Outpatient nullFlavo MNA [id number] Memoria 14:15:00 04:59:59 r Neurology 00 l Elvin Victor Hugo 2019-07-18 2019-07-19 Outpatient nullFlavo MNA [id number] Memoria 14:15:00 04:59:59 r Neurology 00 l Elvin Victor Hugo 2019-07-18 2019-07-19 Outpatient nullFlavo MNA [id number] Memoria 14:15:00 04:59:59 r Neurology 00 l Elvin [place] 2019-07-18 2019-07-18 Outpatient Shannon, BINTAMISCHER MHMISCHER [id number] 09:15:00 23:59:59 Ab 00 Abran 2019-07-18 2019-07-18 Outpatient BINTA OrtegaMISCHER MHMISCHER [id number] 09:15:00 23:59:59 Ab 00 Abran 2019-07-18 2019-07-18 Outpatient MHIE MHIE [id number] Memoria 09:15:00 09:15:00 00 baldemar Gay 2019-07-18 2019-07-18 Outpatient MHIE MHIE [id number] Memoria 09:15:00 09:15:00 00 baldemar Gay Results Test Description Test Time Test Comments Results Result [facility] e Comments - XR FLUOROSCOPY 2023-06-27 0-60 MIN 00:00:00 [facility] PRAT[facility] JENNINGS : 1965 Sex: F FAX: Anahi Graves MD [phone] [place]: St: [facility] FAX: Ca Cosby DO [phone] Name: PRATIBHA JENNINGS [facility] : 1965 Age/S: 57/F [address] [place] [address] Unit #: [id number] [place]: [place] [address] Phys: Ca Gallo DO Acct: [id number] Dis Date: Status: REG [facility] PHONE #: [phone] Exam Date: 06/27/2023 1424 FAX #: [phone] Reason: INTRACTABLE PAIN EXAMS: CPT CODE: [id number] XR FLUOROSCOPY 0-60 MIN 98207 PROCEDURE INFORMATION: Exam: FL Fluoroscopy, Up to 1 Hour Physician Time; Radiologist Not Present For Fluoroscopy Exam date and time: 06/27/2023 1:31 PM Age: 57 years old Clinical indication: Symptoms: Intractable pain TECHNIQUE: Imaging protocol: Fluoroscopy , up to 1 hour physician or other qualified health professional healthcare representative time. This radiologist did not supervise this procedure. Exam supervised by facility personnel. Report for radiation dosage reporting and documentation only. COMPARISON: No relevant prior studies available. RADIATION DOSE METRICS: Fluoroscopy time (seconds): seconds= 60 SECS Number of fluoro spot images: images= 3 Reference air kerma (CORONA): 15.64 mGy FINDINGS: Procedural imaging: Fluoroscopy dosage documentation. See also separate procedure notes. Notes: Fluoroscopy supervised by facility personnel. See also separate procedure report. IMPRESSION: Fluoroscopy dosage documentation. See also separate procedure notes. at 1444 Reported and signed by: David Cox M.D. CC: Anahi Chaves MD; Ca Gallo DO Technologist: RT Linh(R) Trnscrd Date/Time/By: 06/27/2023 (6373) : By: [email or web address] Orig Print D/T: S: 06/27/2023 (0899) PAGE 1 Signed Report COVID 19 Asymptomatic IH AG 2023-06-23 15:42:00 Test Item Value Reference Range Interpretation Comme nts COVID 19 Asymptomatic IH AG Negative Negative A negative result is presumptive and (test code = COVNONPUIAG) sh ould be confirmedwith an FDA authorized mole cular assay, if necessary forpa tient management.A positive result does not rule out co-infections w ithother pathogens.This test detects both viable (live) a nd non-viable,SARS -CoV, and SARS-CoV-2. Test performanc e depends on theamount of vi josephine (antigen) in the sample.This fernando t has not been FDA cleared or appr yared; the test hasbeen authori zed by FDA under an Emergency Use A uthorization(EUA) for use by laborato umm certified under the CLIA thatme et the requirements to perform mode rate, high or waivedcomplexit y tests. BASIC METABOLIC [id number] 13:27:00 Test Item Value Reference Range Interpretation Comments SODIUM (test code = 134 mEq/L 134-147 N NA) POTASSIUM (test code 4.4 mEq/L 3.4-5.0 N = K) CHLORIDE (test code 102 mEq/L 100-108 N = CL) CARBON DIOXIDE (test 25 mEq/l 21-33 N code = CO2) ANION GAP (test code 11 0-20 N = GAP) GLUCOSE (test code = 61 mg/dL 70-110 L GLU) BLOOD UREA NITROGEN 10 mg/dL 7-18 N (test code = BUN) GLOMERULAR 100.2 90-95 H The Glomerular FILTRATION RATE Filtration R ate is a (test code = GFR) calculated parameterbased on serum Creatinine, pat ient age and sex. GFR va luesless than 60 mL/min/ 1.73 square meters a re indicative ofCh ronic Kidney Disease. Values less than 15 mL/min/1.73squa re meters indicate Kidney failure. The calculation forGFR is based on the CKD-EPI (2020) calculat ion. This formulais race indifferent and is the recommended for eleuterio for GFRby the Nat nal Kidney Foundati on for Adults.The GFR will not calculate if th e sex is unknown or if thepatient's ag e is <18 years. CREATININE (test 0.7 mg/dL 0.6-1.3 N code = CREAT) CALCIUM (test code = 8.6 mg/dL 8.0-10.5 N CA) PROTHROMBIN [id number] 13:21:00 Test Item Value Reference Range Interpretation Comments PROTHROMBIN TIME 10.9 SECONDS 9.3-12.9 N PATIENT (test code = PTP) INTERNATIONAL NORMAL 1.0 0.8-1.2 N TARGET INR BY RATIO (test code = INDICATIO N Indication INR) INR1. Prophylax is of venous thrombos is 2.0 - 3.0 (orthoped ic surgery), Proph ylaxis of venous throm bosis (other than hig h-risk surgery), Treat ment of Deep Vein Thrombosis/Pulm onary Embolism, Preve ntion of systemic emb olism - Tissue heart va lves, Acute Myocardia l Infarction (to prevent systemic emboli sm), Valvular heart disease, Atrial Fibrillation, Bileaflet mecha nical valve in aortic position.2. Mec hanical prosthetic valv es (high risk), 2. 5 - 3.5 Presence of Lup us Anticoagulant o r Antiphospholipi d Antibodies, Pre vention of systemic emb olism - Acute Myocardia l Infarction (to prevent recurrent infar ct). THROMBOPLASTIN TIME [id number] 13:21:00 Test Item Value Reference Range Interpretation Comments THROMBOPLASTIN TIME 30.6 Seconds 25.0-39.5 N Therape utic Range: PARTIAL (test code = 50.4 - 88.3 Seconds PTT) Effective 03/13/2019 CBC W/AUTO [id number] 13:12:00 Test Item Value Reference Range Interpretation Comments WHITE BLOOD CELL (test code = 9.6 x10 3/uL 4.5-11.0 N WBC) RED BLOOD CELL (test code = 4.25 x10 6/uL 3.54-5.02 N RBC) HEMOGLOBIN (test code = HGB) 13.1 g/dL 11.0-15.0 N HEMATOCRIT (test code = HCT) 39.5 % 33.0-45.0 N MEAN CELL VOLUME (test code = 92.9 fL 81.0-99.0 N MCV) MEAN CELL HGB (test code = MCH) 30.8 pg 27.0-33.0 N MEAN CELL HGB CONCETRATION 33.2 g/dL 33.0-37.0 N (test code = MCHC) RED CELL DISTRIBUTION WIDTH CV 12.6 % 11.5-14.5 N (test code = RDW) RED CELL DISTRIBUTION WIDTH SD 42.6 fL 37.0-54.0 N (test code = RDW-SD) PLATELET COUNT (test code = 233 x10 3/uL 150-400 N PLT) MEAN PLATELET VOLUME (test code 9.8 fL 7.0-9.0 H = MPV) NEUTROPHIL % (test code = NT%) 66.1 % 56.0-77.0 N IMMATURE GRANULOCYTE % (test 0.4 % 0.0-2.0 N code = IG%) LYMPHOCYTE % (test code = LY%) 23.2 % 14.0-32.0 N MONOCYTE % (test code = MO%) 7.8 % 4.8-9.0 N EOSINOPHIL % (test code = EO%) 2.0 % 0.3-3.7 N BASOPHIL % (test code = BA%) 0.5 % 0.0-2.0 N NUCLEATED RBC % (test code = 0.0 % 0-0 N NRBC%) NEUTROPHIL # (test code = NT#) 6.35 x10 3/uL 2.0-7.6 N IMMATURE GRANULOCYTE # (test 0.04 x10 3/uL 0.00-0.03 H code = IG#) LYMPHOCYTE # (test code = LY#) 2.23 x10 3/uL 1.0-3.8 N MONOCYTE # (test code = MO#) 0.75 x10 3/uL 0.1-0.8 N EOSINOPHIL # (test code = EO#) 0.19 x10 3/uL 0.0-0.2 N BASOPHIL # (test code = BA#) 0.05 x10 3/uL 0.0-0.2 N NUCLEATED RBC # (test code = 0.00 x10 3/uL 0.0-0.1 N NRBC#) MANUAL DIFF REQUIRED (test code NO = MDIFF) - XR CHEST 2 [id number] 00:00:00 [facility] 1965 Sex: F FAX: Anahi Graves MD [phone] [place]: St: PRE FAX: Ca Cosby DO [phone] FAX: Katherine Ma Name: PRATIBHA JENNINGS [facility] : 1965 Age/S: 57/F [address] [place] [address] Unit #: [id number] Loc: [place] [address] Phys: Katherine Ma NP Acct: [id number] Dis Date: Status:PRE SDC PHONE #: [phone] Exam Date: 06/23/2023 1237 FAX #: [phone] Reason: PREOP EXAMS: CPT CODE: [id number] XR CHEST 2 V 34610 PROCEDURE INFORMATION: Exam: XR Chest Exam date and time: 06/23/2023 12:37 PM Age: 57 years old Clinical indication: Other: Preop TECHNIQUE: Imaging protocol: Radiologic exam of the chest. Views: 2 views. COMPARISON: DX XR CHEST 2 V 06/08/2021 11:32 AM FINDINGS: Lungs: Lungs clear. Pulmonary vasculature normal. Pleural spaces: Unremarkable. Heart/Mediastinum: Stablecardiomediastinal contours. Vasculature: Mild aortic calcification. Bones/joints: The bones appear to be demineralized. IMPRESSION: No evidence of an active cardiopulmonary process. at 1315 Reported and signed by: Dakotah Andrea M.D. CC: Anahi Chaevs MD; Ca Gallo DO; Katherine Ma NP Technologist: RT Julia(R) Trnscrd Date/Time/By: 06/23/2023 (4676) : By: [email or web address] Orig Print D/T: S: 06/23/2023 (1380) PAGE 1 Signed ReportINFECTION CONTROL [id number] 18:10:00 Test Item Value Reference Range Interpretation Comments HEPATITIS C RNA Negative Negative Negative: HC V RNA Not BY PCR-QUAL DetectedPerform ed At: (test code = BN [facility] HCVRNAPCR) [address] [id number] ra Danielle SALINAS Ph:[phone] AG HEPATITIS B NON REACTIVE NonReactive SURFACE (test INDEX code = HBSAG) AB HIV 1 2 NONREACTIVE INDEX NONREACTIVE (test code = ALV57ZT) HIV 1/2 RAPID NONREACTIVE NONREACTIVE Critical resu lt SCREEN (test called to TED Longoria code = NICKEL, RN/AOSb y [id number]) Kain.LAB.UN at 165 9 06/09/21Nurse r ead back resut and tech confirmed it's correct? Y AG HIV1 P24 NONREACTIVE NONREACTIVE (test code = THM0X51) BASIC METABOLIC [id number] 07:47:00 Test Item Value Reference Range Interpretation [...] code = 9.0 mg/dL 8.0-10.5 N CA) [id number] 07:47:00 Test Item Value Reference Range Interpretation Comments MAGNESIUM (test code = MAG) 1.91 mg/dL 1.80-2.40 N CBC W/AUTO [id number] 07:13:00 Test Item Value Reference Range Interpretation [...] (test NO code = MDIFF) INFECTION CONTROL [id number] 17:05:00 Test Item Value Reference Range Interpretation Comments HEPATITIS C RNA BY PCR-QUAL (test code = HCVRNAPCR) AG HEPATITIS B NON REACTIVE INDEX NonReactive SURFACE (test code = HBSAG) AB HIV 1 2 (test NONREACTIVE INDEX NONREACTIVE code = ESS76AF) HIV 1/2 RAPID NONREACTIVE NONREACTIVE Critical resu lt SCREEN (test code called to KEHINDE = [id number]) ANGELA BROTHERS/Riya y G.LAB.UN at 165 9 06/09/21Nurse read back resut and tech confirmed it's correct? Y AG HIV1 P24 (test NONREACTIVE NONREACTIVE code = VUH1U80) INFECTION CONTROL [id number] 17:01:00 Test Item Value Reference Range Interpretation Comments HEPATITIS C RNA BY PCR-QUAL (test code = HCVRNAPCR) AG HEPATITIS B INDEX NonReactive SURFACE (test code = HBSAG) AB HIV 1 2 (test code INDEX NONREACTIVE = RJE54KK) HIV 1/2 RAPID SCREEN NONREACTIVE NONREACTIVE Critic al result (test code = called to TED Longoria [id number]) ANGELA BROTHERS/Riya brewer G.LAB.UN at 165 9 06/09/21Nurse r ead back resut and tech confirmed it's correct? Y AG HIV1 P24 (test NONREACTIVE NONREACTIVE code = [id number]) COVID 19 Asymptomatic IH [id number] 13:43:00 Test Item Value Reference Range Interpretation [...] waivedcomplexit y tests. - XR CHEST 2 [id number] 13:06:00 [facility] : 1965 Sex: F FAX: Anahi Graves MD [phone] [place]: St: PRE FAX: Beverly Cartagena MD [phone] FAX: Katherine Ma N Name:PRATIBHA JENNINGS [facility] : 1965 Age/S: 55/F [address] [place] [address] Unit #: [id number] [place]: [place] [address] Phys: Katherine Ma NP Acct: [id number] Dis Date: Status: PRE PRC PHONE #: [phone] Exam Date: 06/08/2021 1143 FAX #: [phone] Reason: PREOP EXAMS: CPT CODE: [id number] XR CHEST 2 V 23704 Clinical Indication: Preoperative evaluation. Comparison: 03/08/2019.Impression: Chest, 2 views. No consolidation, pleural effusion, or pneumothorax. Cardiac silhouette is of normal size. No acute osseous abnormality. Thoracic spinal stimulating device is in place. SL: Mary [id number] at 1306 Reported and signed by: Brian Mendes M.D. CC: Anahi Chaves MD; Beverly Cartagena MD; Katherine Ma NP Technologist: MIKE Atkins) Trnscrd Date/Time/By: 06/08/2021 (1502) : By: [email or web address] Orig Print D/T: S: 06/08/2021 (3790) PAGE 1 Signed ReportBASIC METABOLIC [id number] 11:59:00 Test Item Value Reference Range Interpretation [...] 8.9 mg/dL 8.0-10.5 N CA) CBC W/AUTO [id number] 11:55:00 Test Item Value Reference Range Interpretation [...] code NO = MDIFF) AFB CULTURE + [id number] 12:03:00 Test Item Value Reference Range Interpretation Comments CULTURE (BEAKER) (test No acid-fast bacilli code = 1095) isolated in 42 days AFB SMEAR (BEAKER) No acid fast bacilli (test code = 994) seen FUNGUS CULTURE + [id number] 18:46:00 Test Item Value Reference Range Interpretation Comments CULTURE (BEAKER) A 1+ Jo-Ann albicans (test code = 1095) FUNGUS SMEAR No fungi seen (BEAKER) (test code = 1406) MISCELLANEOUS LAB [id number] 07:43:00 Test Item Value Reference Range Interpretation Comments SCAN RESULT (test code = 1521362) CBC W/PLT COUNT & AUTO [id number] 11:31:00 Test Item Value Reference Range Interpretation [...] PERCENT (BEAKER) (test code = 2801) POCT-GLUCOSE [id number] 08:15:00 Test Item Value Reference Range Interpretation Comments POC-GLUCOSE METER 87 mg/dL 70-110 : TESTED A T [facility] (BEAKER) (test code = [place], 1538) 200[address]: Oil Expeller/Techni theo ID = [id number] for GINNY PULIDO [id number] 08:08:00 Test Item Value Reference Range Interpretation Comments MAGNESIUM (BEAKER) 1.6 mg/dL 1.6-2.6 Specimen slightly (test code = 627) hemolyzed COMPREHENSIVE METABOLIC [id number] 08:08:00 Test Item Value Reference Range Interpretation [...] NOT APPLICABLE FOR DIALYSIS PATIEN TS. POCT-GLUCOSE [id number] 23:32:00 Test Item Value Reference Range Interpretation Comments POC-GLUCOSE METER 98 mg/dL 70-110 : TESTED A T [facility] 6720 (BEAKER) (test code = [facility], 1538) 38425: Oil Expeller/Techni theo ID = [id number] for REYN PATEL DICKINSON POCT-GLUCOSE [id number] 17:52:00 Test Item Value Reference Range Interpretation Comments POC-GLUCOSE METER 88 mg/dL 70-110 : TESTED A T [facility] 6720 (BEAKER) (test code = [facility], 1538) 54564: Oil Expeller/Techni theo ID = [id number] for DOBB INS, ZAK POCT-GLUCOSE [id number] 11:53:00 Test Item Value Reference Range Interpretation Comments POC-GLUCOSE METER 161 mg/dL 70-110 H : TESTED A T [facility] 6720 (BEAKER) (test code = [facility], 1538) 40663: Oil Expeller/Techni theo ID = [id number] for DO BBINS, ZAK BRONCHIAL CULTURE + GRAM [id number] 10:38:00 Test Item Value Reference Range Interpretation Comments CULTURE (BEAKER) (test See comment code = 1095) GRAM STAIN RESULT 2+ White blood cells (BEAKER) (test code = seen 1123) GRAM STAIN RESULT No organisms seen (BEAKER) (test code = 582172) 1+ YeastRAD, CHEST, 1 VIEW, NON [id number] 08:59:00Reason for exam:- >endotracheal intubationShould this be [...] Silva MDReport Verified Date/Time: 10/14/201908:59:12 Reading Location: [facility] B1 C013T Transitional Reading Room [id number] 08:38:00 Test Item Value Reference Range Interpretation Comments MAGNESIUM (BEAKER) 2.0 mg/dL 1.6-2.6 Specimen slightly (test code = 627) hemolyzed COMPREHENSIVE METABOLIC [id number] 08:38:00 Test Item Value Reference Range Interpretation [...] PATIEN TS. CBC W/PLT COUNT & AUTO [id number] 08:23:00 Test Item Value Reference Range Interpretation [...] PERCENT (BEAKER) (test code = 2801) POCT-GLUCOSE [id number] 07:07:00 Test Item Value Reference Range Interpretation Comments POC-GLUCOSE METER 84 mg/dL 70-110 : TESTED A T [facility] 6720 (BEAKER) (test code = [employer] [place], 1538) 23035: Oil Expeller/Techni theo ID = [id number] for Kamille Magana BLOOD GAS, [id number] 04:38:00 Test Item Value Reference Range Interpretation [...] (test code = 1819) 36.0 % POCT-GLUCOSE [id number] 01:19:00 Test Item Value Reference Range Interpretation Comments POC-GLUCOSE METER 152 mg/dL 70-110 H : TESTED A T [facility] 6720 (BEAKER) (test code = [employer] [place], 1538) 33419: Oil Expeller/Techni theo ID = [id number] for Weston grubbs, Kamille BLOOD [id number] 19:01:00 Test Item Value Reference Range Interpretation Comments CULTURE (BEAKER) (test No growth in 5 days code = 1095) POCT-GLUCOSE [id number] 18:11:00 Test Item Value Reference Range Interpretation Comments POC-GLUCOSE METER 82 mg/dL 70-110 : TESTED A T [facility] 6720 (BEAKER) (test code = [place], 1538) 00545: Oil Expeller/Techni theo ID = [id number] for MARY INSZAK POCT-GLUCOSE [id number] 12:34:00 Test Item Value Reference Range Interpretation Comments POC-GLUCOSE METER 87 mg/dL 70-110 : TESTED A T [facility] 6720 (BEAKER) (test code = [facility] [place] [facility], 1538) 72339: Oil Expeller/Techni theo ID = [id number] for SAND ERS, GIDEON CBC W/PLT COUNT & AUTO [id number] 09:13:00 Test Item Value Reference Range Interpretation [...] 0-1 PERCENT (BEAKER) (test code = 2801) [id number] 06:55:00 Test Item Value Reference Range Interpretation Comments MAGNESIUM (BEAKER) (test code = 1.8 mg/dL 1.6-2.6 627) COMPREHENSIVE METABOLIC [id number] 06:55:00 Test Item Value Reference Range Interpretation [...] APPLICABLE FOR DIALYSIS PATIEN TS. BLOOD GAS, [id number] 06:41:00 Test Item Value Reference Range Interpretation [...] 28.0 % RAD, CHEST, 1 VIEW, NON [id number] 04:40:00Reason for exam:->endotracheal intubationShould this be performed [...] changes of the left clavicle.. Signed: Carolynn [facility] Verified Date/Time: 10/13/2019 04:40:52 POCT-GLUCOSE METER 2019-10-13 00:24:00 Test Item Value Reference Range Interpretation Comments POC-GLUCOSE METER 107 mg/dL 70-110 : TESTED A T [facility] 6720 (BEAKER) (test code = [facility] [place] [facility], 1538) 07611: Oil Expeller/Techni theo ID = [id number] for Dianna Wetzel RAD, MANDIBLE, MIN 4 [id number] 17:22:00Reason for exam:->Liver Transplant EvaluationShould this be [...] Villarrealeport Verified Date/Time: 10/12/2019 17:22:01 Reading Location: [facility] Reading Room POCT-GLUCOSE [id number] 12:42:00 Test Item Value Reference Range Interpretation Comments POC-GLUCOSE METER 119 mg/dL 70-110 H : TESTED A T [facility] 6720 (BEAKER) (test code = [place] [place] [facility], 1538) 17986: Oil Expeller/Techni theo ID = [id number] for Tyler Sanchez RAD, CHEST, 1 VIEW, NON [id number] 09:14:00Reason for exam:->endotracheal intubationShould this be performed [...] Signed: JR Rox, Tyler TRIVEDIeport Verified Date/Time: 10/12/2019 09:14:48 Reading Location: [facility] Radiology Reading Room [id number] 04:39:00 Test Item Value Reference Range Interpretation Comments MAGNESIUM (BEAKER) (test code = 1.8 mg/dL 1.6-2.6 627) COMPREHENSIVE METABOLIC [id number] 04:39:00 Test Item Value Reference Range Interpretation [...] PATIEN TS. CBC W/PLT COUNT & AUTO [id number] 04:18:00 Test Item Value Reference Range Interpretation [...] (BEAKER) (test code = 2801) BLOOD GAS, [id number] 04:17:00 Test Item Value Reference Range Interpretation [...] (test code = 1819) 30.0 % SPIN/CONCENTRATION [id number] 01:15:00 Test Item Value Reference Range Interpretation Comments CONCENTRATION CHARGED (BEAKER) (test Done code = 2657) BODY FLUID CELL COUNT WITH [id number] 18:00:00 Test Item Value Reference Range Interpretation [...] (test code = 2873) EEG AWAKE AND [id number] 17:00:00Reason for exam:->acute encephalopathyShould this be performed at the bedside?->YesDate(s) of EE10/11/2019 DATE OF REPORT: 10/11/2019ACC: [id number] Number: [id number] Location: Inpatient ICUStart time: 10/11/2019 16:09Stop time: 10/11/2019 16:31ICD-10: R41.82 CPT Code: 79022 HISTORY: 54 y.o. female with hypertension, chronic [...] of this report.Jermaine Walton MD, PhDAttending NeurophysiologistCHI [place], [place] SPUTUM CULTURE + GRAM [id number] 15:43:00 Test Item Value Reference Range Interpretation Comments CULTURE (BEAKER) 4+ Normal respiratory (test code = 1095) candy present GRAM STAIN RESULT 2+ White blood cells (BEAKER) (test code = seen 1123) GRAM STAIN RESULT 0-5 epithelial cells (BEAKER) (test code = 05738) GRAM STAIN RESULT 1+ gram positive rods (BEAKER) (test code = 08832) GRAM STAIN RESULT <1+ yeast (BEAKER) (test code = 197905) MISCELLANEOUS LAB [id number] 08:34:00 Test Item Value Reference Range Interpretation Comments SCAN RESULT (test code = 7209879) RAD, CHEST, 1 VIEW, NON [id number] 07:51:00Reason for exam:->endotracheal intubationShould this be performed [...] MDReport Verified Date/Time: 10/11/2019 07:51:10 Reading Location: [facility] Radiology Reading Room BLOOD [id number] 07:00:00 Test Item Value Reference Range Interpretation Comments CULTURE (BEAKER) (test No growth in 5 days code = 1095) BLOOD [id number] 07:00:00 Test Item Value Reference Range Interpretation Comments CULTURE (BEAKER) (test No growth in 5 days code = 1095) POCT-GLUCOSE [id number] 05:51:00 Test Item Value Reference Range Interpretation Comments POC-GLUCOSE METER 103 mg/dL 70-110 : [facility] ([facility] (test code = [place], 1538) 14653: Oil Expeller/Techni theo ID = [id number] for OD SUSANNE SHARI BLOOD GAS, [id number] 04:55:00 Test Item Value Reference Range Interpretation [...] (BEAKER) (test code = 1819) 40.0 % [id number] 04:46:00 Test Item Value Reference Range Interpretation Comments MAGNESIUM (BEAKER) (test code = 2.2 mg/dL 1.6-2.6 627) COMPREHENSIVE METABOLIC [id number] 04:46:00 Test Item Value Reference Range Interpretation [...] PATIEN TS. CBC W/PLT COUNT & AUTO [id number] 04:11:00 Test Item Value Reference Range Interpretation [...] PERCENT (BEAKER) (test code = 2801) POCT-GLUCOSE [id number] 23:55:00 Test Item Value Reference Range Interpretation Comments POC-GLUCOSE METER 118 mg/dL 70-110 H : TESTED A T [facility] 6720 (BEAKER) (test code = [facility], 1538) 51243: Oil Expeller/Techni theo ID = [id number] for SHARI BAJWA POCT-GLUCOSE [id number] 17:40:00 Test Item Value Reference Range Interpretation Comments POC-GLUCOSE METER 142 mg/dL 70-110 H : TESTED A T [facility] 6720 (BEAKER) (test code = [facility], 1538) 69648: Oil Expeller/Techni theo ID = [id number] for Gr Karely yoon POCT-GLUCOSE [id number] 12:30:00 Test Item Value Reference Range Interpretation Comments POC-GLUCOSE METER 114 mg/dL 70-110 H : TESTED A T [facility] 6720 (BEAKER) (test code = [facility], 1538) 43495: Oil Expeller/Techni theo ID = [id number] for Gr Jackie yoonara HIV-1 PCR, [id number] 11:07:00 Test Item Value Reference Range Interpretation Comments HIV-1 RESULT HIV RNA not detected HIV RNA not detected COMPONENT (BEAKER) (test code = 2703) This test uses a Real-Time Polymerase Chain Reaction (RT-PCR) methodology to detect a highly conserved region of the HIV-1 gag gene and was performed using the CHRISTINA AmpliPrep/CHRISTINA TaqMan HIV-1 test kit version 2.0 ([employer]Reportable range for this assay is 20 - 10,000,000 copies per mL (1.3 - 7.0 Log copies/mL).[id number] 08:14:00 Test Item Value Reference Range Interpretation Comments T3 TOTAL (JASON) (test code = 656) 36 ng/dL 48-159 L RAD, CHEST, 1 VIEW, NON [id number] 07:15:00Reason for exam:->endotracheal intubationShould this be performed [...] MDReport Verified Date/Time: 10/10/2019 07:15:28 Reading Location: [facility] Radiology Reading Room POCT- GLUCOSE [id number] 06:26:00 Test Item Value Reference Range Interpretation Comments POC-GLUCOSE METER 103 mg/dL 70-110 : TESTED A T [facility] 67[facility] (JASON) (test code = [place] [place] [facility], 1538) 11083: Oil Expeller/Techni theo ID = [id number] for BONY BRISCOE SUSIE [id number] 05:32:00 Test Item Value Reference Range Interpretation [...] within 95-100% range.CBC W/PLT COUNT & AUTO [id number] 05:23:00 Test Item Value Reference Range Interpretation [...] 0-1 PERCENT (BEAKER) (test code = 2801) [id number] 05:10:00 Test Item Value Reference Range Interpretation [...] is 2.5-3.5 for patients wiht mechanical heart valves.[id number] 05:10:00 Test Item Value Reference Range Interpretation Comments PHOSPHORUS (BEAKER) (test code = 3.3 mg/dL 2.3-4.7 604) [id number] 05:10:00 Test Item Value Reference Range Interpretation Comments MAGNESIUM (BEAKER) (test code = 2.3 mg/dL 1.6-2.6 627) COMPREHENSIVE METABOLIC [id number] 05:10:00 Test Item Value Reference Range Interpretation [...] S NOT APPLICABLE FOR DIALYSIS PATIEN TS. [id number] 05:08:00 Test Item Value Reference Range Interpretation Comments FIBRINOGEN LEVEL (BEAKER) (test 275 mg/dl 225-434 code = 658) PROTHROMBIN TIME/[id number] 05:07:00 Test Item Value Reference Range Interpretation [...] 2.5-3.5 for patients wiht mechanical heart valves.CALCIUM, [id number] 04:59:00 Test Item Value Reference Range Interpretation Comments CALCIUM IONIZED (BEAKER) (test 1.20 mmol/L 1.12-1.27 code = 698) PH, BLOOD (BEAKER) (test code = 7.37 1810) BLOOD GAS, [id number] 04:55:00 Test Item Value Reference Range Interpretation [...] (test code = 1819) 40.0 % POCT-GLUCOSE [id number] 00:46:00 Test Item Value Reference Range Interpretation Comments POC-GLUCOSE METER 90 mg/dL 70-110 : TESTED A T [facility] (BEAKER) (test code = [place], 1538) 40938: Oil Expeller/Techni theo ID = [id number] for SUSIE LISA MRSA [id number] 19:33:00 Test Item Value Reference Range Interpretation Comments CULTURE (BEAKER) (test code No MRSA isolated = 1095) PROTHROMBIN TIME/[id number] 18:00:00 Test Item Value Reference Range Interpretation [...] is 2.5-3.5 for patients wiht mechanical heart valves.PT/[id number] 18:00:00 Test Item Value Reference Range Interpretation [...] is 2.5-3.5 for patients wiht mechanical heart valves.[id number] 17:55:00 Test Item Value Reference Range Interpretation Comments MAGNESIUM (BEAKER) (test code = 1.9 mg/dL 1.6-2.6 627) BASIC METABOLIC [id number] 17:55:00 Test Item Value Reference Range Interpretation [...] APPLICABLE FOR DIALYSIS PATIEN TS. CYTOMEGALOVIRUS ANTIBODY, [id number] 16:41:00 Test Item Value Reference Range Interpretation Comments CYTOMEGALOVIRUS, IGG (BEAKER) Negative Negative, Equivocal (test code = 3429) CMV IgG Result Interpretation: </= 0.8 Al Negative 0.9-1.0 Al Equivocal >/=1.1 Al PositiveCYTOMEGALOVIRUS ANTIBODY, [id number] 16:41:00 Test Item Value Reference Range Interpretation Comments CYTOMEGALOVIRUS IGM ANTIBODY Negative Negative, Equivocal (BEAKER) (test code = 3437) CMV IgM Result Interpretation: </= 0.8 Al Negative 0.9-1.0 Al Equivocal >/= 1.1 Al PositiveEBV ANTIBODY, [id number] 16:41:00 Test Item Value Reference Range Interpretation Comments JAMA ROUSE VIRAL CAPSID Positive Negative, Equivocal A ANTIGEN IGG (Intrinsic-ID) (test code = 3415) Jama Rouse Viral Capsid Antigen IgG Result Interpretation: </= 0.8 Al Negative 0.9-1.0 Al Equivocal >/= 1.1 Al PositiveEBV ANTIBODY, [id number] 16:41:00 Test Item Value Reference Range Interpretation Comments JAMA ROUSE VIRAL CAPSID Positive Negative, Equivocal A ANTIGEN IGM (Intrinsic-ID) (test code = 3418) Jama Rouse Viral Capsid Antigen IgM Result Interpretation: </= 0.8 Al Negative 0.9-1.0 Al Equivocal >/= 1.1 Al PositivePOCT-GLUCOSE [id number] 16:15:00 Test Item Value Reference Range Interpretation Comments POC-GLUCOSE METER 107 mg/dL 70-110 : TESTED A T [facility] (Intrinsic-ID) (test code = [facility], 1538) 60485: Oil Expeller/Techni theo ID = [id number] for Gr ant, Tieara CT, BRAIN, WITHOUT [id number] 14:07:00Patient with decerebrate posturing, r/o herniationFINAL REPORT [...] Date/Time: 10/09/2019 14:07:57 SPUTUM CULTURE + GRAM [id number] 12:59:00 Test Item Value Reference Range Interpretation Comments CULTURE (BEAKER) See comment (test code = 1095) GRAM STAIN RESULT 1+ White blood cells (BEAKER) (test code = seen 1123) GRAM STAIN RESULT 0-5 epithelial cells (BEAKER) (test code = 596915) GRAM STAIN RESULT No organisms seen (BEAKER) (test code = 992586) 2+ YeastNo Normal respiratory candy presentPOCT-GLUCOSE [id number] 12:22:00 Test Item Value Reference Range Interpretation Comments POC-GLUCOSE METER 168 mg/dL 70-110 H : TESTED A T [facility] 6720 (BEAKER) (test code = [employer] [facility], 1538) 29982: Oil Expeller/Techni theo ID = [id number] for Gr ant, Tieara POCT-GLUCOSE [id number] 10:04:00 Test Item Value Reference Range Interpretation Comments POC-GLUCOSE METER 101 mg/dL 70-110 : TESTED A T [facility] 6720 (BEAKER) (test code = [employer] [facility], 1538) 75861: Oil Expeller/Techni theo ID = [id number] for Gr ant, Tieara BILIRUBIN, [id number] 09:44:00 Test Item Value Reference Range Interpretation Comments BILIRUBIN DIRECT (BEAKER) (test 1.5 mg/dL 0.1-0.5 H code = 706) [id number] 07:19:00 Test Item Value Reference Range Interpretation [...] within 95-100% range.RAD, CHEST, 1 VIEW, NON [id number] 05:16:00Reason for exam:->endotracheal intubationShould this be performed [...] contours. Additional findings: None. Signed: Aurelia Cummins MDRort Verified Date/Time: 10/09/2019 05:16:08 CALCIUM, [id number] 05:05:00 Test Item Value Reference Range Interpretation Comments CALCIUM IONIZED (BEAKER) (test 1.14 mmol/L 1.12-1.27 code = 698) PH, BLOOD (BEAKER) (test code = 7.49 1810) BLOOD GAS, [id number] 05:04:00 Test Item Value Reference Range Interpretation [...] 40.0 % CBC W/PLT COUNT & AUTO [id number] 04:51:00 Test Item Value Reference Range Interpretation [...] (BEAKER) (test code = 2801) VANCOMYCIN LEVEL, [id number] 04:26:00 Test Item Value Reference Range Interpretation Comments VANCOMYCIN TROUGH (BEAKER) (test 7.0 ug/mL 10.0-20.0 L code = 522) [id number] 04:21:00 Test Item Value Reference Range Interpretation Comments PHOSPHORUS (BEAKER) (test code = 3.2 mg/dL 2.3-4.7 604) [id number] 04:21:00 Test Item Value Reference Range Interpretation Comments MAGNESIUM (BEAKER) (test code = 1.9 mg/dL 1.6-2.6 627) COMPREHENSIVE METABOLIC [id number] 04:21:00 Test Item Value Reference Range Interpretation [...] GFR I S NOT APPLICABLE FOR DIALYSIS PATIMARYURI TS. [id number] 04:19:00 Test Item Value Reference Range Interpretation Comments FIBRINOGEN LEVEL (BEAKER) (test 267 mg/dl 225-434 code = 658) [id number] 04:14:00 Test Item Value Reference Range Interpretation [...] 2.5-3.5 for patients wiht mechanical heart valves.PROTHROMBIN TIME/[id number] 04:13:00 Test Item Value Reference Range Interpretation [...] 2.5-3.5 for patients wiht mechanical heart valves.POCT-GLUCOSE [id number] 01:04:00 Test Item Value Reference Range Interpretation Comments POC-GLUCOSE METER 143 mg/dL 70-110 H : TESTED A T [facility] 6720 (BEAKER) (test code = [employer] [facility], 1538) 49155: Oil Expeller/Techni theo ID = [id number] for BONY THEJaime, SUSIE POCT-GLUCOSE [id number] 20:20:00 Test Item Value Reference Range Interpretation Comments POC-GLUCOSE METER 145 mg/dL 70-110 H : TESTED A T [facility] 6720 (BEAKER) (test code = [employer] [facility], 1538) 74416: Oil Expeller/Techni theo ID = [id number] for BONY BRISCOE, SUSIE POCT-GLUCOSE [id number] 16:43:00 Test Item Value Reference Range Interpretation Comments POC-GLUCOSE METER 164 mg/dL 70-110 H : TESTED A T [facility] 6720 (BEAKER) (test code = [facility] [employer] [facility], 1538) 32812: Oil Expeller/Techni theo ID = [id number] for Karely Bautista CMV PCR, [id number] 15:47:00 Test Item Value Reference Range Interpretation [...] by the [facility] Pathol ogy Department, Section of Molecular Pathology. It has not been cleared or approved by the U.S. Foodand Drug Administration (FDA), since FDA approval is not required for clinical use of the test. Validation was done as required by The Clinical Laboratory Improvement Amendments of 1988.[id number] 15:29:00 Test Item Value Reference Range Interpretation Comments PHOSPHORUS (BEAKER) (test code = 3.5 mg/dL 2.3-4.7 604) [id number] 15:29:00 Test Item Value Reference Range Interpretation Comments MAGNESIUM (BEAKER) (test code = 2.1 mg/dL 1.6-2.6 627) [id number] 15:01:00 Test Item Value Reference Range Interpretation Comments PHOSPHORUS (BEAKER) (test code = 2.1 mg/dL 2.3-4.7 L 604) [id number] 15:01:00 Test Item Value Reference Range Interpretation Comments MAGNESIUM (BEAKER) (test code = 2.0 mg/dL 1.6-2.6 627) BASIC METABOLIC [id number] 15:01:00 Test Item Value Reference Range Interpretation [...] APPLICABLE FOR DIALYSIS PATIEN TS. Specimen slightly ictericPT/[id number] 14:53:00 Test Item Value Reference Range Interpretation Comments PROTIME (itzbigAKER) (test code = 22.6 seconds 11.9-14.2 H [...] is 2.5-3.5 for patients wiht mechanical heart valves.[id number] 14:38:00 Test Item Value Reference Range Interpretation Comments AMMONIA (Intrinsic-ID) (test code = 348) 34 mol/L 18-72 RUBELLA ANTIBODY, [id number] 14:20:00 Test Item Value Reference Range Interpretation Comments RUBELLA IGG QUANTITATION (Intrinsic-ID) 1.0 IU/mL <8.0 (test code = 572) Rubella IgG Result Interpretation: </= 7.0 IU/mL Negative - Presumed non- immune 8.0 - 9.9 IU/mL Equivocal >= 10.0 IU/mL Positive - Presumed immune VARICELLA ZOSTER ANTIBODY, [id number] 13:49:00 Test Item Value Reference Range Interpretation Comments VARICELLA ZOSTER IGG (AL) (itzbigAKER) 4.8 (test code = 3197) VARICELLA ZOSTER RESULT INTERPRETATIONS: <=0.8 Al Nonreactive: Presumed non- immune to VZV 0.9-1.0Al Equivocal >=1.1 Al Reactive: Presumed immune to VZV CRYPTOCOCCAL [id number] 13:33:00 Test Item Value Reference Range Interpretation Comments CRYPTOCOCCAL ANTIGEN, SERUM Negative Negative, Interference (BEAKER) (test code = 1828) FACTOR 5 ACTIVITY (BLEEDING RISK)2019-10-08 13:03:00 Test Item Value Reference Range Interpretation Comments FACTOR V ACTIVITY (BEAKER) (test code = 9.0 % 60.0-150.0 L 665) CBC W/PLT COUNT & AUTO [id number] 12:13:00 Test Item Value Reference Range Interpretation [...] PERCENT (BEAKER) (test code = 2801) POCT-GLUCOSE [id number] 11:22:00 Test Item Value Reference Range Interpretation Comments POC-GLUCOSE METER 184 mg/dL 70-110 H : TESTED A T [facility] (BEAKER) (test code = [place], 1538) 54114: Oil Expeller/Techni theo ID = [id number] for Karely Bautista ANTI-NUCLEAR ANTIBODY (JOSE ARMANDO)2019-10-08 10:44:00 Test Item Value Reference Range Interpretation Comments ANTI-NUCLEAR ANTIBODY (JOSE ARMANDO) (BEAKER) Negative Negative (test code = 418) Test performed by IFA method.Test performed by IFA method.[id number] 09:26:00 Test Item Value Reference Range Interpretation Comments PHOSPHORUS (BEAKER) (test code = 2.9 mg/dL 2.3-4.7 604) [id number] 09:26:00 Test Item Value Reference Range Interpretation Comments MAGNESIUM (BEAKER) (test code = 2.0 mg/dL 1.6-2.6 627) BASIC METABOLIC [id number] 09:26:00 Test Item Value Reference Range Interpretation [...] Specimen slightly ictericRAD, CHEST, 1 VIEW, NON [id number] 09:14:00Reason for exam:->endotracheal intubationShould this be performed [...] MDReport Verified Date/Time: 10/08/2019 09:14:39 Reading Location: [facility] Radiology Reading Room -[id number] 06:25:00 Test Item Value Reference Range Interpretation [...] of thrombosis is within 95-100% range. PROTHROMBIN TIME/[id number] 05:32:00 Test Item Value Reference Range Interpretation [...] is 2.5-3.5 for patients wiht mechanical heart valves.[id number] 05:32:00 Test Item Value Reference Range Interpretation Comments FIBRINOGEN LEVEL (BEAKER) (test 200 mg/dl 225-434 L code = 658) [id number] 05:32:00 Test Item Value Reference Range Interpretation [...] Specimen slightly ictericCBC W/PLT COUNT & AUTO [id number] 05:24:00 Test Item Value Reference Range Interpretation [...] (BEAKER) (test code = 2801) LACTIC ACID, [id number] 05:16:00 Test Item Value Reference Range Interpretation Comments LACTATE BLOOD VENOUS (2) (BEAKER) 1.8 mmol/L 0.5-2.2 (test code = 2872) [id number] 23:51:00 Test Item Value Reference Range Interpretation Comments PHOSPHORUS (BEAKER) (test code = 4.4 mg/dL 2.3-4.7 604) [id number] 23:51:00 Test Item Value Reference Range Interpretation Comments MAGNESIUM (BEAKER) (test code = 2.2 mg/dL 1.6-2.6 627) BASIC METABOLIC [id number] 23:51:00 Test Item Value Reference Range Interpretation [...] DIALYSIS PATIEN TS. Specimen slightly ictericBLOOD GAS, [id number] 23:37:00 Test Item Value Reference Range Interpretation [...] 50.0 % CBC W/PLT COUNT & AUTO [id number] 20:12:00 Test Item Value Reference Range Interpretation [...] PERCENT (BEAKER) (test code = 2801) POCT-GLUCOSE [id number] 20:01:00 Test Item Value Reference Range Interpretation Comments POC-GLUCOSE METER 143 mg/dL 70-110 H : TESTED A T [facility] 6720 (BEAKER) (test code = [place], 1538) [address]: Oil Expeller/Techni theo ID = [id number] for Liban Arnett BLOOD GAS, [id number] 19:54:00 Test Item Value Reference Range Interpretation [...] (test code = 1819) 24.0 % POCT-GLUCOSE [id number] 19:01:00 Test Item Value Reference Range Interpretation Comments POC-GLUCOSE METER 155 mg/dL 70-110 H : TESTED A T [facility] 6720 (BEAKER) (test code = [place] [facility], 1538) [address]: Oil Expeller/Techni theo ID = [id number] for SA LOPEZ, GIDEON HEPATOBILIARY [id number] 18:38:00Please do at bedside. Thank you.FINAL REPORT PROCEDURE: HEPATOBILIARY SCAN CPT CODE: 47785 INDICATION: abdominal pain PROTOCOL: 5.3 mCi of [...] Jeffery Alarcon Verified Date/Time: 10/07/2019 18:38:40 POCT-GLUCOSE [id number] 16:52:00 Test Item Value Reference Range Interpretation Comments POC-GLUCOSE METER 166 mg/dL 70-110 H : TESTED A T [facility] 6720 (BEAKER) (test code = [facility] Tasia [facility], 1538) [address]33[address]: Oil Expeller/Techni theo ID = [id number] for SA JOHN, GIDEON [id number] 16:40:00 Test Item Value Reference Range Interpretation [...] is 2.5-3.5 for patients wiht mechanical heart valves.[id number] 16:40:00 Test Item Value Reference Range Interpretation Comments FIBRINOGEN LEVEL (BEAKER) (test 156 mg/dl 225-434 L code = 658) PROTHROMBIN TIME/[id number] 16:39:00 Test Item Value Reference Range Interpretation [...] is 2.5-3.5 for patients wiht mechanical heart valves.[id number] 16:36:00 Test Item Value Reference Range Interpretation Comments PHOSPHORUS (BEAKER) (test code = 1.8 mg/dL 2.3-4.7 L 604) [id number] 16:36:00 Test Item Value Reference Range Interpretation Comments MAGNESIUM (BEAKER) (test code = 2.5 mg/dL 1.6-2.6 627) BASIC METABOLIC [id number] 16:36:00 Test Item Value Reference Range Interpretation [...] APPLICABLE FOR DIALYSIS PATIEN TS. BLOOD GAS, [id number] 16:22:00 Test Item Value Reference Range Interpretation [...] 25.0 % CBC W/PLT COUNT & AUTO [id number] 12:44:00 Test Item Value Reference Range Interpretation [...] PERCENT (BEAKER) (test code = 2801) POCT-GLUCOSE [id number] 12:23:00 Test Item Value Reference Range Interpretation Comments POC-GLUCOSE METER 145 mg/dL 70-110 H : [facility] (BE[facility]ER[facility] (test code = [place], 1538) [address]: Oil Expeller/Techni theo ID = [id number] for GIDEON NUNEZ [id number] 12:06:00 Test Item Value Reference Range Interpretation Comments T4 TOTAL (BEAKER) (test code = 895) 4.6 ug/dL 4.9-11.7 L [id number] 10:00:00 Test Item Value Reference Range Interpretation Comments PHOSPHORUS (BEAKER) (test code = 2.8 mg/dL 2.3-4.7 604) [id number] 10:00:00 Test Item Value Reference Range Interpretation Comments MAGNESIUM (BEAKER) (test code = 2.0 mg/dL 1.6-2.6 627) BASIC METABOLIC [id number] 10:00:00 Test Item Value Reference Range Interpretation [...] NOT APPLICABLE FOR DIALYSIS PATIEN TS. POCT-GLUCOSE [id number] 08:15:00 Test Item Value Reference Range Interpretation Comments POC-GLUCOSE METER 174 mg/dL 70-110 H : TESTED A T [facility] 6720 (BEAKER) (test code = [place], 1538) 164[address]: Oil Expeller/Techni theo ID = [id number] for SA NDERS, GIDEON RAD, CHEST, 1 VIEW, NON [id number] 05:39:00Reason for exam:- >intubatedShould this be performed [...] Verified Date/Time: 10/07/2019 05:39:22 05:39 AMBLOOD GAS, [id number] 05:29:00 Test Item Value Reference Range Interpretation [...] (BEAKER) (test code = 1819) 40.0 % [id number] 05:07:00 Test Item Value Reference Range Interpretation [...] thrombosis is within 95-100% range. COMPREHENSIVE METABOLIC [id number] 04:59:00 Test Item Value Reference Range Interpretation [...] PATIEN TS. CBC W/PLT COUNT & AUTO [id number] 04:32:00 Test Item Value Reference Range Interpretation [...] H PERCENT (BEAKER) (test code = 2801) [id number] 04:30:00 Test Item Value Reference Range Interpretation Comments PHOSPHORUS (BEAKER) (test code = 3.1 mg/dL 2.3-4.7 604) [id number] 04:30:00 Test Item Value Reference Range Interpretation Comments MAGNESIUM (BEAKER) (test code = 1.8 mg/dL 1.6-2.6 627) POCT-GLUCOSE [id number] 04:25:00 Test Item Value Reference Range Interpretation Comments POC-GLUCOSE METER 126 mg/dL 70-110 H : TESTED A T [facility] 6720 (BEAKER) (test code = [facility], 1538) [address]: Oil Expeller/Techni theo ID = [id number] for Liban Arnett [id number] 04:18:00 Test Item Value Reference Range Interpretation Comments FIBRINOGEN LEVEL (BEAKER) (test 173 mg/dl 225-434 L code = 658) [id number] 04:14:00 Test Item Value Reference Range Interpretation [...] for patients wiht mechanical heart valves.LACTIC ACID, [id number] 04:13:00 Test Item Value Reference Range Interpretation Comments LACTATE BLOOD VENOUS (2) (BEAKER) 1.2 mmol/L 0.5-2.2 (test code = 2872) POCT-GLUCOSE [id number] 01:33:00 Test Item Value Reference Range Interpretation Comments POC-GLUCOSE METER 103 mg/dL 70-110 : TESTED A T [facility] 67[address] ([place]) (test code = [place] [facility], 1538) 87959: Oil Expeller/Techni theo ID = [id number] for GISELE CUETO HEMOGLOBIN AND [id number] 00:27:00 Test Item Value Reference Range Interpretation Comments HEMOGLOBIN (BEAKER) (test code = 8.6 GM/DL 11.2-15.7 L 410) HEMATOCRIT (BEAKER) (test code = 26.2 % 34.1-44.9 L 411) POCT-GLUCOSE [id number] 22:58:00 Test Item Value Reference Range Interpretation Comments POC-GLUCOSE METER 146 mg/dL 70-110 H : TESTED A T [facility] 67[address] (BEAKER) (test code = [place], 1538) [address]: Oil Expeller/Techni theo ID = [id number] for GISELE CUETO RAD, CHEST, 1 VIEW, NON [id number] 21:37:00Reason for exam:->line placement, right IJShould this [...] changes the left clavicle. Signed: [facility] Verified Date/Time: 10/06/2019 21:37:58 BASI METABOLIC [id number] 20:04:00 Test Item Value Reference Range Interpretation [...] APPLICABLE FOR DIALYSIS PATIEN TS. PROTEIN, RANDOM [id number] 19:50:00 Test Item Value Reference Range Interpretation Comments PROTEIN, URINE (BEAKER) (test code = 83 mg/dL 0-14 H 1569) CREATININE, RANDOM [id number] 19:28:00 Test Item Value Reference Range Interpretation Comments CREATININE URINE (BEAKER) (test 37.6 mg/dL code = 375) Reference Range: No [id number] 19:00:00 Test Item Value Reference Range Interpretation Comments MAGNESIUM (BEAKER) 2.0 mg/dL 1.6-2.6 Specimen slightly (test code = 627) hemolyzed [id number] 19:00:00 Test Item Value Reference Range Interpretation [...] 0-0 (test code = 413) LACTIC ACID, [id number] 18:55:00 Test Item Value Reference Range Interpretation Comments LACTATE BLOOD VENOUS 1.9 mmol/L 0.5-2.2 Specime n slightly (2) (BEAKER) (test hemolyzed code = 2872) VITAMIN B12 AND [id number] 18:36:00 Test Item Value Reference Range Interpretation Comments VITAMIN B12 (BEAKER) (test code = > pg/mL 213-816 H 774) FOLATE (BEAKER) (test code = 362) 17.3 ng/mL >=7.0 BLOOD GAS, [id number] 18:29:00 Test Item Value Reference Range Interpretation [...] code = 1819) 40.0 % BASIC METABOLIC [id number] 17:47:00 Test Item Value Reference Range Interpretation [...] NOT APPLICABLE FOR DIALYSIS PATIEN TS. POCT-GLUCOSE [id number] 17:39:00 Test Item Value Reference Range Interpretation Comments POC-GLUCOSE METER 188 mg/dL 70-110 H : TESTED A T [facility] 67[address] (BEAKER) (test code = [place], 1538) [address]: Oil Expeller/Techni theo ID = [id number] for SA LOPEZGIDEON LIPID [id number] 17:28:00 Test Item Value Reference Range Interpretation [...] = 7.3 mg/dL 2.6-7.2 H 773) HEMOGLOBIN [id number] 16:13:00 Test Item Value Reference Range Interpretation Comments HEMOGLOBIN A1C (BEAKER) (test code = 6.0 % 4.3-6.1 368) HEPATITIS A ANTIBODY, [id number] 16:13:00 Test Item Value Reference Range Interpretation Comments HEPATITIS A IGG ANTIBODY (BEAKER) Reactive Nonreactive A (test code = 2797) CARCINOEMBRYONIC ANTIGEN (CEA)2019-10-06 16:08:00 Test Item Value Reference Range Interpretation Comments CARCINOEMBRYONIC ANTIGEN (BEAKER) 23.1 ng/mL 0.0-5.0 H (test code = 685) VITAMIN D, [id number] 16:08:00 Test Item Value Reference Range Interpretation Comments VITAMIN D 25-OH (BEAKER) (test 10.1 ng/mL 6.6-49.9 code = 2764) Effective 09/07/2017: Reference Range ChangeNew: 6.6-49.9 ng/mL Previous: 13.0- 47.8 ng/mLRecommendedVitamin D Target Range: 30.0-40.0 ng/mLTRANSFERRIN 2019-10-06 15:52:00 Test Item Value Reference Range Interpretation Comments TRANSFERRIN (BEAKER) (test code = 218 mg/dL 174-382 541) [id number] 15:09:00 Test Item Value Reference Range Interpretation Comments PHOSPHORUS (BEAKER) (test code = 1.7 mg/dL 2.3-4.7 L 604) U/S, ABDOMINAL, WITH [id number] 15:01:00Reason for exam:->acute liver injury, ? cholecystitis, [...] MDReport Verified Date/Time: 10/06/2019 15:01:21 Reading Location: [address] Consult Reading Room PREGNANCY SCREEN, [id number] 14:58:00 Test Item Value Reference Range Interpretation Comments TEST URINE (Intrinsic-ID) (test Negative code = 583) POCT-GLUCOSE [id number] 12:44:00 Test Item Value Reference Range Interpretation Comments POC-GLUCOSE METER 156 mg/dL 70-110 H : TESTED A T [facility] 6720 (Intrinsic-ID) (test code = [place], 1538) [address]: Oil Expeller/Techni theo ID = [id number] for SA NDETEREZA, GIDEON [id number] 12:39:00 Test Item Value Reference Range Interpretation Comments RPR SCREEN (BEAKER) (test code = Nonreactive Nonreactive 420) B-TYPE NATRIURETIC FACTOR (BNP)2019-10-06 11:57:00 Test Item Value Reference Range Interpretation Comments B-TYPE NATRIURETIC PEPTIDE 3996 pg/mL 0-100 H (BEAKER) (test code = 700) [id number] 11:51:00 Test Item Value Reference Range Interpretation Comments MAGNESIUM (BEAKER) (test code = 2.2 mg/dL 1.6-2.6 627) BLOOD GAS, [id number] 11:50:00 Test Item Value Reference Range Interpretation [...] code = 1819) 50.0 % RESPIRATORY PANEL [id number] 11:35:00 Test Item Value Reference Range Interpretation [...] decisions. This sample was tested at the [facility] using the LawKickArray Respiratory Panel. It is FDA cleared and has been verified and approved by the [facility] for clinical use on nasopharyngeal swab specimens.The performance of the FilmArrayRP has not been established in individuals who received influenza vaccine. Recent administration of a nasal influenza vaccine may cause false positive results for Influenza A and/orInfluenza B.RETICULOCYTE [id number] 11:32:00 Test Item Value Reference Range Interpretation Comments RETICULOCYTE COUNT PCT (BEAKER) (test 2.1 % 0.5-1.7 H code = 575) KETONE, [id number] 11:30:00 Test Item Value Reference Range Interpretation Comments KETONES, BLOOD (BEAKER) (test code 0.3 mmol/L <0.4 = 1103) LEGIONELLA ANTIGEN, [id number] 09:37:00 Test Item Value Reference Range Interpretation Comments L. PNEUMOPHILA Negative - see Negative fo r L. SEROGP 1 UR AG comment pneumophila (BEAKER) (test code serogrou p 1 antigen, = 1156) suggesting no r ecent or current infe ction with this serog roup. Legionellosis c annot be ruled out si nce other serogroup s and species may cau se disease. STREP PNEUMONIAE [id number] 09:37:00 Test Item Value Reference Range Interpretation Comments STREP PNEUMONIAE Presumptive negative Presumptive negative ANTIGEN (itzbigAKER) for pneumococcal for pneumococcal (test code = 1615) pneumonia - see pneumonia - see comment commen Presumptive negative for pneumococcal pneumonia, suggesting no current or recent pneumococcal infection. Infection due to S. pneumoniae cannot be ruled out since the antigen present in the sample may be below the detection limit of the test. POCT-GLUCOSE [id number] 08:45:00 Test Item Value Reference Range Interpretation Comments POC-GLUCOSE METER 119 mg/dL 70-110 H : TESTED A T [facility] [address] (BEAKER) (test code = [place], 1538) [address]: Oil Expeller/Techni theo ID = [id number] for SA NDERS, GIDEON RAD, CHEST, 1 VIEW, NON [id number] 08:37:00Post-intubationReason for exam:- >intubationShould this be performed [...] MDReport Verified Date/Time: 10/06/2019 08:37:13 Reading Location: [address] Consult Reading Room Electronically signed by: AMANDA VAN M.D.on 10/06/2019 08:37 [id number] 07:44:00 Test Item Value Reference Range Interpretation Comments PROCALCITONIN (BEAKER) (test code 0.97 ng/mL <0.05 H = 3036) SEPSIS RISK (ng/mL)Low: 0.05-0.50Intermediate: 0.51-2.00High: >=2.01 URINALYSIS W/ REFLEX URINE [id number] 07:15:00 Test Item Value Reference Range Interpretation [...] code = 2795) ALPHA FETOPROTEIN (AFP), TUMOR [id number] 06:49:00 Test Item Value Reference Range Interpretation Comments ALPHA-FETOPROTEIN (BEAKER) (test code < ng/mL <10.0 = 1094) For 1 occurencesHEPATITIS B SURFACE [id number] 06:49:00 Test Item Value Reference Range Interpretation Comments HEPATITIS B SURFACE ANTIBODY < mIU/mL <8.0 (BEAKER) (test code = 647) For 1 occurencesRAPID DRUG SCREEN, [id number] 06:33:00 Test Item Value Reference Range Interpretation [...] situations. Chain of custody not maintained. Some moqw-etn-kbryczq medications, as well as adulterants, may cause inaccurate results. Clinical correlation should be applied. A more comprehensive drug screen or confirmation of a detected drug may be performed upon request.CREATININE, RANDOM [id number] 06:30:00 Test Item Value Reference Range Interpretation Comments CREATININE URINE (BEAKER) (test 38.0 mg/dL code = 375) Reference Range: No NormalsSODIUM, RANDOM [id number] 06:30:00 Test Item Value Reference Range Interpretation Comments SODIUM URINE (BEAKER) (test code = 51 meq/L 243) Reference Range: No NormalsHEPATITIS B CORE ANTIBODY, [id number] 06:27:00 Test Item Value Reference Range Interpretation Comments HEPATITIS B CORE TOTAL ANTIBODY Nonreactive Nonreactive (BEAKER) (test code = 497) For 1 [id number] 05:50:00 Test Item Value Reference Range Interpretation Comments FERRITIN (BEAKER) (test code = 1588 ng/mL 5-275 H 361) For 1 occurencesACETAMINOPHEN [id number] 05:30:00 Test Item Value Reference Range Interpretation Comments ACETAMINOPHEN LEVEL (BEAKER) (test < ug/mL 10.0-30.0 L code = 344) Therapeutic Range: 10.0-30.0 g/mLToxic Levels: >200.0 g/mLFor 1 occurences ADOIK-4-[id number] 05:20:00 Test Item Value Reference Range Interpretation Comments ALPHA-1 ANTITRYPSIN (BEAKER) 266.90 mg/dL 90.00-200.00 H (test code = 502) [id number] 05:17:00 Test Item Value Reference Range Interpretation Comments THYROID STIMULATING HORMONE 0.75 uIU/mL 0.35-4.94 (BEAKER) (test code = 772) HEPATITIS PANEL, [id number] 05:17:00 Test Item Value Reference Range Interpretation Comments HEPATITIS A IGM ANTIBODY (BEAKER) Nonreactive Nonreactive (test code = 498) HEPATITIS B CORE IGM ANTIBODY Nonreactive Nonreactive (BEAKER) (test code = 645) HEPATITIS C ANTIBODY (BEAKER) Nonreactive Nonreactive (test code = 367) HEPATITIS B SURFACE ANTIGEN (2) Nonreactive Nonreactive (BEAKER) (test code = 2585) HIV-1 ANTIGEN WITH HIV-1/2 [id number] 05:17:00 Test Item Value Reference Range Interpretation Comments HIV-1 ANTIGEN WITH HIV 1\T\2 Nonreactive Nonreactive ANTIBODY (2) (BEAKER) (test code = 2586) BASIC METABOLIC [id number] 05:09:00 Test Item Value Reference Range Interpretation [...] APPLICABLE FOR DIALYSIS PATIEN TS. HEPATIC FUNCTION [id number] 05:09:00 Test Item Value Reference Range Interpretation [...] code = > U/L 6-55 H 347) [id number] 05:07:00 Test Item Value Reference Range Interpretation Comments PHOSPHORUS (BEAKER) (test code = 3.6 mg/dL 2.3-4.7 604) [id number] 05:07:00 Test Item Value Reference Range Interpretation [...] H (test code = 364) LACTIC ACID, [id number] 04:58:00 Test Item Value Reference Range Interpretation Comments LACTATE BLOOD ARTERIAL (2) 1.5 mmol/L 0.5-2.2 (BEAKER) (test code = 2874) [id number] 04:56:00 Test Item Value Reference Range Interpretation Comments ETHANOL (BEAKER) (test code = 400) < mg/dL <=10 [id number] 04:54:00 Test Item Value Reference Range Interpretation [...] L (test code = 2590) BLOOD GAS, [id number] 04:53:00 Test Item Value Reference Range Interpretation [...] 30.0 % CBC W/PLT COUNT & AUTO [id number] 04:53:00 Test Item Value Reference Range Interpretation [...] PERCENT (BEAKER) (test code = 2801) CALCIUM, [id number] 04:51:00 Test Item Value Reference Range Interpretation Comments CALCIUM IONIZED (BEAKER) (test 1.12 mmol/L 1.12-1.27 code = 698) PH, BLOOD (BEAKER) (test code = 7.35 1810) PROTHROMBIN TIME/[id number] 04:43:00 Test Item Value Reference Range Interpretation [...] is 2.5-3.5 for patients wiht mechanical heart valves.[id number] 04:43:00 Test Item Value Reference Range Interpretation Comments FIBRINOGEN LEVEL (BEAKER) (test 265 mg/dl 225-434 code = 658) PT/[id number] 04:43:00 Test Item Value Reference Range Interpretation [...] for patients wiht mechanical heart valves.ACUTE HEPATITIS [id number] 06:15:00 Test Item Value Reference Range Interpretation [...] HCV Nucl eic Acid Amplification t est (942048).Perfor med At: [facility] [id number] [facility] [place]ár[place], [place] [id number] kris Gould MD [phone] HIV 1 2 ANTIBODY [id number] 06:15:00 Test Item Value Reference Range Interpretation Comments AB HIV 1 2 (test code = NON REACTIVE SCREEN NONREACTIVE RAH40YZ) AG HIV1 P24 (test code = NON REACTIVE P24 NONREACTIVE THV5A77) - CT ABD PELVIS W/[id number] 12:57:00 Name: PRATIBHA JENNINGS [place] : 1965 Age/S: 53 / F [address] Unit #: [id number] Loc: [place] [address] Phys: Bryan Orta MD Acct: [id number] Dis Date: Status: ADM IN PHONE #: [phone] Exam Date: 03/09/2019 1200 FAX #: Reason: abd pain EXAMS: CPT: [id number] CT ABD PELVIS W/CONT 43941 LOCATION: T18 EXAM: CT ABDOMEN AND PELVIS [...] signed by: Donavon Blanco M.D. CC: Lou Joe MD; Bryan Orta MD Technologist:Luis Moore, RT(R)(CT); .. CTDI: DLP: Trnscb Date/Time: (1257) t.OWENR.JP19 Orig Print D/T: S: 03/09/2019 (1300) CTDI: DLP: PAGE 1 Signed ReportBASIC METABOLIC [id number] 07:37:00 Test Item Value Reference Range Interpretation [...] = CA) 8.7 MG/DL 8.5-10.1 N T4 [id number] 07:37:00 Test Item Value Reference Range Interpretation Comments T4 FREE (test code = T4F) 0.70 NG/DL 0.89-1.76 L THYROID STIMULATING [id number] 07:37:00 Test Item Value Reference Range Interpretation Comments THYROID STIMULATING HORMONE 1.540 mcIU/ML 0.340-4.820 N (test code = TSH) ACUTE HEPATITIS [id number] 07:33:00 Test Item Value Reference Range Interpretation Comments AB HEPATITIS A IGM (test code = HAVMAB) AG HEPATITIS B SURFACE (test code = SCREEN NEGATIVE HBSAG) AB HEPATITIS B CORE IGM (test code = HBCMAB) AB HEPATITIS C (test code = HCVAB) RATIO <0.8 HIV 1 2 ANTIBODY [id number] 07:33:00 Test Item Value Reference Range Interpretation Comments AB HIV 1 2 (test code = NON REACTIVE SCREEN NONREACTIVE CGP07WH) AG HIV1 P24 (test code = NON REACTIVE P24 NONREACTIVE LJC7L80) GLYCOSYLATED HEMOGLOBIN [id number] 07:26:00 Test Item Value Reference Range Interpretation Comments GLYCOSYLATED HEMOGLOBIN (HA1C) 5.8 % A1C 4.2-6.3 N (test code = GLYHGB) ESTIMATED AVERAGE GLUCOSE (test 120 MG/DLest code = EAG) CBC W/AUTO [id number] 07:21:00 Test Item Value Reference Range Interpretation [...] DIFF/SCN CRITERIA MDIFF) - CT HEAD/BRAIN W/O [id number] 19:39:00 Name: PRATIBHA JENNINGS : 1965 Age/S: 53 / F [address] Unit #: [id number] Loc: [place] [address] Phys: Maria Morel MD Acct: [id number] Dis Date: Status: ADM IN PHONE #: [phone] Exam Date: 03/08/2019 7175 FAX #: Reason: near syncope EXAMS: CPT: [id number] CT HEAD/BRAIN W/O CONT 05940 CT head History: near syncope Comparison: None [...] signed by: Alfonso Mascorro M.D. CC: Lou Joe MD; Maria Morel MD Technologist:Minal Lopez RT(R)(CT) CTDI: DLP: Trnscb Date/Time: 03/08/2019 (1938) t.OWENR.PMT Orig Print D/T: S: 03/08/2019 (1941) CTDI: DLP: PAGE 1 Signed ReportDRUGS OF ABUSE SCREEN [id number] 19:12:00 Test Item Value Reference Range Interpretation [...] NEGATIVE SCcutoff <300 NG/ML [place]) COMPREHENSIVE METABOLIC [id number] 17:26:00 Test Item Value Reference Range Interpretation [...] 45-117 N TOTAL (test code = ALKP) [id number] 17:26:00 Test Item Value Reference Range Interpretation Comments MAGNESIUM (test code = MAG) 1.9 MG/DL 1.8-2.4 N [id number] 17:26:00 Test Item Value Reference Range Interpretation Comments ALCOHOL (test code = ALC) < 3 MG/DL 0-10 N COMPREHENSIVE METABOLIC [id number] 17:21:00 Test Item Value Reference Range Interpretation [...] TOTAL (test Unit/L 45-117 code = ALKP) [id number] 17:21:00 Test Item Value Reference Range Interpretation Comments MAGNESIUM (test code = MAG) MG/DL 1.8-2.4 [id number] 17:21:00 Test Item Value Reference Range Interpretation Comments ALCOHOL (test code = ALC) MG/DL 0-10 CBC W/AUTO [id number] 17:08:00 Test Item Value Reference Range Interpretation [...] DIFF/SCN CRITERIA MDIFF) - XR CHEST 1 [id number] 16:33:00 Name[facility] [place] : 1965 Age/S: 53 / F [address] Unit #: [id number] Loc: [place] [address] Phys: Maria Morel MD Acct: [id number] Dis Date: Status: PRE ER PHONE #: [phone] Exam Date: 03/08/2019 1627 FAX #: Reason: near syncope EXAMS: CPT: [id number] CHEST 1 V [id number] Fluoro Time: DAP (Gy m2): Air Kerma [...] signed by: Donavon Blanco M.D. CC: Lou Joe MD; Maria Morel MD PAGE 1 Signed Report Name: PRATIBHA JENNINGS [place] : 1965 Age/S: 53 / F [address] [place] [address] Unit #: [id number] Loc: [place] [address] Phys: Maria Morel MD Acct: [id number] Dis Date: Status: PRE ER PHONE #: [phone] Exam Date: 03/08/2019 1627 FAX #: Reason: near syncope EXAMS: CPT: [id number] XR CHEST 1 V 61724 Fluoro Time: DAP (Gy m2): Air Kerma (mGy): (Continued) Technologist: Nanette Gordon RT(R)(CT) Trnscb Date/Time: 03/08/2019 (1633) [email or web address] Orig Print D/T: S: 03/08/2019 (1636) PAGE 2 Signed Report Notes Date/Time Note Provider Source 2023-07-12 09:04:00-00:[address] [facility] ([facility]) Operative Note - Full REPORT#:[id number] REPORT STATUS: Signed DATE:07/12/23 TIME: 0904 PATIENT: PRATIBHA JENNINGS UNIT #: [id number] ROOM/BED: : 63 AGE: 57 SEX: F ATTEND: Uziel Gallo DO ADM AUTHOR: Ca Gallo DO * ALL edits or amendments must be made on the [employer]/computer document * Operative Report Start date: 06/27/23 Start time: 1330 Pre-procedure diagnosis: chronic pain, failed back Post-procedure diagnosis: same as above Procedures performed: placement intrathecal synchromed 2 pain pump (20 cc) with ascenda catheter Technique/Procedure: see below Primary Surgeon: zakiya moseley Binder Coverstitch(s): none Anesthesia: general anesthesia, local anesthesia Operative findings: csf udner normal pressure Complications: none Estimated blood loss in ml's: 10cc Specimens removed/altered: none Implant(s): synchromed 2 20cc reservoir, ascenda catheter Counts: Sponge count: correct Instrument count: correct Needle count: correct Cottonoid count: correct Free Text Op Notes Free Text Op Notes: SURGICAL INDICATION: SURGICAL DESCRIPTION: Lisbet is a 57-year-old female with a history of intractable pain who presented to the office for evaluation of intrathecal pain pump. She udnerwent a trial severa lmonths ago, and got good relief of her back zachary n, but unfortunately woke up with a foot drop and peripheral neuropathy on th e right leg. She had been waiting and hoping for impro vement in her foot, but since this was not an option , she wished to proceed with the pump, hoping to get some relief from the neuropathy also. All the ris ks and benefits along with the procedure in general were discussed in detail with her and her onur d. No medication would be placed in the pump at the time of surgery. All q uestions were answered informed consent was obtained. SURGICAL DESCRIPTION: Lisbet was brought to the operating room under the care of anesthesia. She was connected to monitors. She was placed supine on the operating room table on a beanbag with her head on a gel donut. She was in duced and intubated by anesthesia. Appropriate lines were placed. Preop erative clindamycin was infused. She was carefully flipped into the left lateral decubitus position on a cedeno bag. An axillary roll was placed. Pillows were placed between her legs. Her legs were tucked. The beanbag was inflated. Safety straps were placed over her shoulders and hips. The skin was cleane d with alcohol. The C arm was used to localize L2-3 and L3 -4 on the back. There was a small scar at this site from prior surgery. A small 1 midline incision w as marked spanning these 2 levels. An additional transverse incision was ma rked on the right side of the abdomen adjacent to the umbi licus. She was prepped and draped in normal sterile fashion. 1% lidocaine with epinephrine was used on both incisions. The back incision was opened with a 15 blade and Bovie cauterization. Hemostasis was achieved and a self-retaining tra ctor was placed. The incision was opened down to the lumbar fascia. Th e spinous processes were palpated. The C-arm was brought into the surgical field. The L 2-3 space was identified. The Touhy needle was to be placed using a paraMedian oblique approach. The Touhy needle was inserted adjacent to the L3 spinous p rocess. Using C arm guidance the needle was advanced until the subarachnoid s pace was entered. The introducer was removed from the needle and there was egress of CSF under normal pressure. The Ascenda intrathecal catheter with the metal guidewire was advanced through the needle and the subarachnoid space up to the level of T8. The advancement of the alexei ter was followed using C arm. Once at the T8 level, the Touhy needle was carefully removed along wit h the guidewire. Spontaneous dripping of CSF was noted from the intrathecal c atheter. A rubber-shod was placed over the end of the catheter. The butterf ly anchor was slid down the catheter and the anterior on e third of the tip was inserted through the fascia. silk sutures were used to se cure the anchor to the fascia. Spontaneous dripping of CSF was noted after place ment of the anchor. The rubber-shod was replaced on the end of the catheter. The abdominal incision was then opened with a 15 blade and Bovie cauterization. hemostasis was achieved and a self-retaining tractor was placed. The subcutaneous pocket was made in the right side of the abdomen using blunt dissection. A pocket was made big en ough to accommodate the pump. Using the metal disposable t unneler, the spinal portion of the catheter was then tunneled from the back to the abdomen. None of t he tubing was trimmed. The spinal portion of the catheter was then connecte d to the pump portion of the catheter and secured. Spontaneous dripping of CS F was noted. The tubing was then connected to the Synchr oMed 2 pump. The pump had previously been primed on the back sterile table. No m edication was placed in the pump at this time, only saline. The excess tubing was curled behind the pump, and the pump was placed into its subcutaneous pocket in the proper orien tation. 3 Vicryl sutures were used to secure the pump in place in the pocket. Both incisions were copiously irrigated with antibiotic irrigation. Hemostasis was achieved. The incisions were then closed wit h 2-0 Vicryl sutures and 4-0 Monocryl sutures on the skin. Sterile dressings were applied. The pump was then interrogated and updated. Pratibha tolerated the procedure well. The air was l et out of the beanbag and she was returned to a supine position. She w as extubated in the OR and transferred to the recovery room in stable condition. All co unts were correct at the end the procedure. at 0934 RPT #:[id number] END OF REPORT 2023-06-27 17:07:00-00:[address] [facility] ([facility]) Pain Management Consult Note REPORT#:[id number] REPORT STATUS: Signed DATE:06/27/23 TIME: 1706 PATIENT: PRATIBHA JENNINGS UNIT #: [id number] ROOM/BED: : 64 AGE: 57 SEX: F ATTEND: Uziel Gallo DO ADM AUTHOR: Jose Peña * ALL edits or amendments must be made on the PacerPro/computer document * Jose Peña 06/27/23 170: History of Present Illness Primary Care Physician: Dr Casi Gallo HPI: Patient is a 57-year-old female who came in for insertion of intrathecal pain pump. Patient has history of chronic pain, long-term u se of opioids, failed back surgery. She has had back pain for greater than a year, daily basis, aching, sharp/shooting, intermittent, rated 7/10 at wors t, aggravated with activity, better with rest and medications associated neur opathy and debility Review of Systems Additional notes: 14 point ROS undertaken unremarkable except as n oted in HPI, past medical and surgical history History Past History Medications: Home Medications: Medication Dose/Rte/Freq Days Qty Entered Last Max Daily Dose Reviewed GABAPENTIN (NEURONTIN) 600 MG PO QID 07/02/14 Strength: 600 MG TAB [address] 60 MG PO DAILY 07/02/14 (DEXILANT) 1237 Strength: 60 MG CAP. LIDOCAINE (LIDODERM 5%) 07/02/14 Strength: 5 % PATCH 1239 amLODIPine (NORVASC) 5 MG PO DAILY 03/08/19 Strength: 2.5 MG TAB 2107 FLUoxetine (PROzac) 40 MG PO BID 06/08/21 Strength: 40 MG CAP 1324 TOPIRAMATE (TOPAMAX) 50 MG PO BID 06/23/23 Strength: 50 MG TAB 1305 traZODone (DESYREL) 50 MG PO BEDTIME 06/23/23 Strength: 50 MG TAB 1306 METOPROLOL SUCC XL 25 MG PO DAILY 06/23/23 (TOPROL XL) 1306 Strength: 25 MG TAB.SR.24H OMEPRAZOLE ER (PriLOSEC) 10 MG PO DAILY 3 Strength: 10 MG CAP. 09 NAPROXEN SODIUM (ALEVE) 220 MG PO 06/27/23 Strength: 220 MG TAB Q12H PRN PRN PAIN 0930 Current Hospital Medications: Anti-Infective Agents Sig/David Start time Last Medication Dose Route Stop Time Status Admin Gentamicin Sulfate 0 .STK-MED ONE 06/27 1424 DC (GARAMYCIN) .ROUTE Gentamicin Sulfate 0 .STK-MED ONE 06/27 1249 DC (GARAMYCIN) .ROUTE Cefazolin Sodium 0 .STK-MED ONE 06/27 0916 DC (KEFZOL OR ANCEF) .ROUTE Cefazolin Sodium 2 GM PREOP ONCALL 06/23 1500 C KD (KEFZOL OR ANCEF) IV 06/30 1459 Antihistamine Drugs Sig/David Start time Last Medication Dose Route Stop Time Status Admin Diphenhydramine HCl 12.5 MG PACU ONCE PRN 06/27 1430 AC (BENADRYL) IV 06/28 0029 Promethazine HCl 25 MG PACU ONCE PRN 06/27 1430 AC (PHENERGAN) PO 06/28 0029 Autonomic Drugs Sig/David Start time Last Medication Dose Route Stop Time Status Admin Glycopyrrolate 0 .STK-MED ONE 06/27 1424 DC (GLYCOPYRROLATE) .ROUTE Neostigmine 0 .STK-MED ONE 06/27 1424 DC Methylsulfate .ROUTE (PROSTIGMIN) Ephedrine Sulfate 0 .STK-MED ONE 06/27 1327 DC (ePHEDrine sulfate) .ROUTE Rocuronium [place] 0 .STK-MED ONE 06/27 1247 DC (ZEMURON) IV Blood Formation,Coagulation Sig/David Start time Last Medication Dose Route Stop Time Status Admin Thrombin 0 .STK-MED ONE 06/27 1250 DC (RECOTHROM) TOPICAL Cardiovascular Drugs Sig/David Start time Last Medication Dose Route Stop Time Status Admin Hydralazine HCl 5 MG PACU Q10MIN PRN PRN 06/27 1430 AC (APRESOLINE) IV 06/28 002 Labetalol HCl 5 MG PACU Q10MIN PRN PRN 06/27 14 30 AC (LABETALOL HCL) IV 06/28 002 Lidocaine HCl 0 .STK-MED ONE 06/27 1247 DC (XYLOCAINE) .ROUTE Lidocaine HCl 2 ML PREOP ONCALL 06/23 1345 AC (LIDOCAINE HCL/PF) LOCAL 07/23 2359 Lidocaine HCl 2 ML PREOP ONCALL 06/23 1345 AC (LIDOCAINE HCL/PF) LOCAL 07/23 2359 Central Nervous System Agents Sig/David Start time Last Medication Dose Route Stop Time Status Admin Fentanyl Citrate 100 MCG PACU Q10MIN PRN PRN 1430 AC 06/27 (SUBLIMAZE) IV 06/28 002 1534 Fentanyl Citrate 50 MCG PACU Q10MIN PRN PRN 05/30 1 1430 AC (SUBLIMAZE) IV 06/28 002 Hydrocodone Bitart/ 1 TAB PACU ONCE 06/27 1430 C KD 06/27 Acetaminophen PO 06/28 29 1534 (NORCO 5/325) Hydromorphone HCl 1 MG PACU Q10MIN PRN PRN 06/27 1430 AC (DILAUDID) IV 06/28 002 Hydromorphone HCl 0.5 MG PACU Q5MIN PRN PRN 1430 AC (DILAUDID) IV 06/28 002 Meperidine HCl 12.5 MG PACU ONCE PRN 06/27 1430 AC (MEPERIDINE HCL/PF) IV 06/28 002 Morphine Sulfate 2 MG PACU Q10MIN PRN PRN 06/27 1430 AC (morphine SULFATE) IV 06/28 002 Tramadol HCl 50 MG PACU ONCE 06/27 1430 CKD (ULTRAM) PO 06/28 002 Fentanyl Citrate 0 .STK-MED ONE 06/27 124 DC (SUBLIMAZE) .ROUTE Midazolam HCl 0 .STK-MED ONE 06/27 124 DC (VERSED) .ROUTE Propofol 20 ML .STK-MED ONE 06/27 124 DC (DIPRIVAN 200MG/20ML IV INJECTION) Acetaminophen 0 .STK-MED ONE 06/27 0916 DC (TYLENOL EXTRA .ROUTE STRENGTH) Acetaminophen 1,000 MG PREOP ONCALL 06/23 1345 C KD 06/27 (TYLENOL EXTRA PO 07/23 2359 0921 STRENGTH) Electrolytic, Caloric, And Eusebia Sig/David Start time Last Medication Dose Route Stop Time Status Admin Sodium Chloride 20 ML .STK-MED ONE 06/27 1402 D C (SODIUM CHLORIDE) IV Sodium Chloride 20 ML PREOP ONCALL 06/23 1500 A C (SODIUM CHLORIDE) IV 07/23 1459 Lactated Ringer's 1,000 ML PREOP ONCALL 06/23 1 345 AC (LACTATED RINGERS) IV 07/23 2359 Sodium Chloride 500 ML PREOP ONCALL 06/23 1345 AC (SODIUM CHLORIDE IV 07/23 2359 0.9%) Sodium Chloride 500 ML PREOP ONCALL 06/23 1345 AC (SODIUM CHLORIDE IV 07/23 235 0.9%) Sodium Chloride 1,000 ML PREOP ONCALL 06/23 134 5 AC (SODIUM CHLORIDE IV 07/23 235 0.9%) Sodium Chloride 5 ML ASDIR PRN 06/23 1345 AC (SODIUM CHLORIDE) IV 07/23 1344 Sodium Chloride 10 ML ASDIR PRN 06/23 1345 AC (SODIUM CHLORIDE) IV 07/23 1344 Sodium Chloride 250 ML ASDIR PRN 06/23 1345 AC (SODIUM CHLORIDE IV 07/23 1344 0.9%) Eye, Ear, Nose And Throat (Een Sig/David Start time Last Medication Dose Route Stop Time Status Admin Dexamethasone Sodium 0 .STK-MED ONE 06/27 1340 DC Phosphate .ROUTE (DECADRON) Gastrointestinal Drugs Sig/David Start time Last Medication Dose Route Stop Time Status Admin Ondansetron HCl 4 MG PACU ONCE PRN 06/27 1430 A C 06/27 (ZOFRAN) IV 06/28 0029 1533 Ondansetron HCl 0 .STK-MED ONE 06/27 1340 DC (ZOFRAN) .ROUTE Hormones And Synthetic Substit Sig/David Start time Last Medication Dose Route Stop Time Status Admin Insulin Human Lispro 0 PACU ONCE PRN 06/27 1430 AC (HUMALOG) SUBQ 06/28 0029 Local Anesthetics (Parenteral) Sig/David Start time Last Medication Dose Route Stop Time Status Admin Ropivacaine 150 MG ASDIR PRN 06/27 1430 AC (NAROPIN 0.5% 150 MG/ LOCAL 06/28 0029 30mL) Lidocaine/Epinephrine 0 .STK-MED ONE 06/27 1249 DC (XYLOCAINE 1% W/EPI LOCAL 5mcg/mL MPF) Allergies: Coded Allergies: latex (Severe, BLISTERS, RASH 06/23/23) iodine (Mild, TOPICAL IODINE-RASH/BLISTER ) Objective Physical Exam VS/I O: Last Documented: Result Date Time Pulse Ox 95 06/27 1705 B/P 129/61 06/27 1705 Pulse 52 06/27 1705 Resp 18 06/27 1705 O2 Delivery Room air 06/27 1530 O2 Flow Rate 5 06/27 1505 Temp 36.4 06/27 1503 PATIENT WEIGHT: Weight (lb): 143 Weight (oz): 4.81 Weight (kg): 65.000 General appearance: alert, awake, oriented, no a cute distress Head/eyes: atraumatic, EOMI, normocephalic, norm al conjunctiva/sclera, PERRLA Cardiovascular: regular rate rhythm Respiratory: clear to auscultation, no distress Abdomen: soft, non-tender, n o distention, active bowel sounds in all quadrant., ITPP in RLQ Extremities: moves all, no edema, pedal pulses Neuro/MARKER ASSEMBLER: no motor deficits, no sensory deficit s, CNII-XII grossly intact Results Findings/data: Recent Impressions: RADIOLOGY - XR FLUOROSCOPY 0-60 MIN 06/27 1303 Report Impression - Status: SIGNED Entered: 06/27/2023 4265 IMPRESSION: Fluoroscopy dosage documentation. See also separ ate procedure notes. Impression By: Jose - David Cox M.D. Diagnosis, Assessment Plan Free text A P: A/P: Patient is a 57-year-old female brought in for e lective intrathecal pain pump placement Past Medical History: Anxiety, hypertension, dep ression, GERD, gastric ulcer, history of alcohol abuse, chronic pain syndrome, failed back surgery, lumbar radiculopathy Past Surgical History: L4-L5 discectomy, reconst ruction x2, laparoscopy, tonsillectomy, lipoma resection, lung biopsy, le ft wrist surgery, ORIF left clavicle, removal of partial left first toe, lef t shoulder surgery Family History: Reviewed and noncontributory Social History: Current everyday smoker, history of alcohol use, no drug abuse Allergies: Iodine Chronic pain syndrome, failed back surgery -Patient has implantation of a Medtronic intrathecal pain pump today 06/27/2023. She will be going home postsurgery. I reviewed h er MAR in BOXING INSTRUCTOR. I will send [place] 10/325 p.o. every 6 ho urs as needed pain 7 days therapy. She is to follow -up next week in the officeFor intrathecal pain pump fill Disposition: DC date:06/27 7 day RX sent for: [place] 10/325 1 tablet p.o. every 6 hours as need ed pain, 7 days therapy [facility] pharmacy [address] [place], [place] [address] in [facility] Follow-up contact information has been given to the patient. Patient has failed conservative medical therapy. Patient will require monitoring while utilize na rcotic medications for any adverse effects, and will adjust as needed Patient will require monitoring drug therapy for toxic effects Plan of care discussed with patient and nurse All diagnostics of last 24 h ours been reviewed. Have reviewed other specialties notes. Risks versus benefits of opioid medications were reviewed to include, but not limited to respiratory depression, accid ental overdose, altered mental status, sudden , constipation which could result in bowel obstruction, seizures, withdrawal, dependency addiction, risk for falls . Case discussed with Dr Quiros whom agrees. Thank you for the consultation. [place] BOXING INSTRUCTOR: I have reviewed the BOXING INSTRUCTOR. Nita Quiros 07/09/23 0710: Attestations Physician Attestation Agree w/findings plan: The patient was seen and exa mined by Jose Peña. I personally developed the care plan, which was continued by the mid-level provider. I was immediately available. Patient to have ITP pump imp lanted by Dr. Suarez. Follows Dr. Landrum/Anat in the clinic. at 1716 Electronically Signed by Nita Quiros MD on 3 at 0730 RPT #:[id number] END OF REPORT 2023-06-23 12:44:00-00:00 [id number] [place] [address] PATIENT NAME: PRATIBHA JENNINGS ADMIT DATE: ACCOUNT NO: [id number] ROOM NO: AGE: 57 REPORT TYPE: eELECTROCARDIOGRAM REPORT SEX: F ADMITTING PHYSICIAN: ATTENDING PHYSICIAN:Ca Gallo DO Order: [id number] Test Reason : PREOP Test Date/Time Stamp: TueJun 23 2023 12:44:18 Blood Pressure : / mmHG Vent. Rate : 056 BPM Atrial Rate : 056 BPM P-R Int : 164 ms QRS Dur : 080 ms QT Int : 476 ms P-R-T Axes : 057 067 085 degree s QTc Int : 459 ms Sinus bradycardia Minimal voltage criteria for LVH, may be normal variant Borderline ECG PRE_OP Confirmed by ZAKIYA CLINTON MD ([id number]) on 06/23/20 1:20:24 PM Referred By: Ca Gallo Confirmed by:CLAY CLINTON MD at 1320 PATIENT NAME: PRATIBHA JENNINGS [id number] 2021-06-11 09:48:00-00:00 [facility] ([facility]) Pain Management Progress Note REPORT#:[id number] REPORT STATUS: Signed DATE:06/11/21 TIME: 0948 PATIENT: PRATIBHA JENNINGS UNIT #: [id number] ROOM/BED: [place] [address] : 64 AGE: 55 SEX: F ATTEND: Jasvir Patterson od, MD ADM AUTHOR: Navi Preston PACKAGING ASSOCIATE * ALL edits or amendments must be made on the PacerPro/computer document * Subjective Chief complaint: f/u left wrist pain s/p L wrist hardware removal, distal radius osteotomy with ICBG, FPL repair, ulnar shortening osteotomy and TFCC repair Pain improves with medication, states he will hager ving significant pain once medication wears off She mentioned she wants to s ee how she feels through the day, so she can decide if she can go home today Review of Systems All systems rev neg: except as marked Objective General VS/I O: Vital Signs Date Temp Pulse Resp B/P B/P Mean Pulse Ox FiO2 06/10-06/11 36.4-37.3 76-89 15-20 108-185/68-110 82.0-134.6 94-99 Last Documented: Result Date Time Pulse Ox 94 06/11 0757 B/P 165/78 06/11 0757 B/P Mean 107.1 06/11 0757 O2 Delivery Room air 06/11 0757 Temp 36.4 06/11 0757 Pulse 82 06/11 0757 Resp 20 06/11 0757 O2 Flow Rate 10 06/09 1559 24 hour I O ending at 0700: 06/11 0700 06/10 1900 Intake Total 580.00 Output Total Balance 580.00 Intake, IV 100.00 Intake, Oral 480 Number 0 Bowel Movements Number Voids 1 PATIENT WEIGHT: Weight (lb): 118 Weight (oz): 6.21 Weight (kg): 53.700 Medications: Active Meds + DC'd Last 24 Hrs Ketorolac Tromethamine 30 MG Q8HR IV (DC) Methocarbamol 1,000 MG Q8HR IV (CAN) Sodium Chloride 100 ML Methocarbamol 1,000 MG Q8HR IV Sodium Chloride 100 ML Ketorolac Tromethamine 30 MG ONCE ONE IV (DC) Morphine Sulfate 30 MG Q8HR PO Amlodipine Besylate 5 MG DAILY PO Fluoxetine HCl 10 MG DAILY PO Nicotine 14 MG DAILY TRANSDERM Pantoprazole 40 MG DAILY PO Topiramate 100 MG DAILY PO Ondansetron HCl 4 MG Q6H PRN PRN IV Cefazolin Sodium 2 GM Q8H IV Sodium Chloride 20 ML ASDIR IV Tizanidine HCl 4 MG Q8HR PO (DC) Atorvastatin Calcium 20 MG BEDTIME PO Gabapentin 600 MG TID PO Morphine Sulfate 30 MG Q12HR PO (DC) Sucralfate 1 GM BID PO Zolpidem Tartrate 5 MG BEDTIME PO Lidocaine 1 PATCH Q24H TOPICAL Morphine Sulfate 4 MG Q4H PRN PRN IV Oxycodone HCl 10 MG Q4H PRN PRN PO Hydroxyzine HCl 25 MG TID PRN PRN PO Ropivacaine 150 MG ASDIR PRN LOCAL Sodium Chloride 20 ML ASDIR IV Physical Exam General appearance: alert, awake, no respiratory distress Wound/Incision: Location: LUE Site condition: dressing clean dry, dressing in tact Cardiovascular: normal capillary refill, regular rate rhythm Respiratory: no distress, symmetric expansion Abdomen: soft, non-tender Extremities: moves all, no edema, decreased rang e of motion (LUE) Neuro/MARKER ASSEMBLER: alert, oriented X 3, normal speech Psychiatry: normal affect, normal judgment/insig ht Results Findings/data: Laboratory Tests: 06/10 0446 Chemistry Sodium (134 - 147 mEq/L) 137 Potassium (3.4 - 5.0 mEq/L) 3.7 Chloride (100 - 108 mEq/L) 106 Carbon Dioxide (21 - 33 mEq/l) 27 Anion Gap (0 - 20) 8 BUN (7 - 18 mg/dL) 7 Creatinine (0.6 - 1.3 mg/dL) 0.7 Glomerular Filtr Rate (90 - 95) 86.6 L Glucose (70 - 110 mg/dL) 111 H Calcium (8.0 - 10.5 mg/dL) 9.0 Magnesium (1.80 - 2.40 mg/dL) 1.91 Hematology WBC (4.5 - 11.0 x10 3/uL) 14.4 H RBC (3.54 - 5.02 x10 6/uL) 3.96 Hgb (11.0 - 15.0 g/dL) 9.4 L Hct (33.0 - 45.0 %) 30.2 L MCV (81.0 - 99.0 fL) 76.3 L MCH (27.0 - 33.0 pg) 23.7 L MCHC (33.0 - 37.0 g/dL) 31.1 L RDW (11.5 - 14.5 %) 18.7 H Plt Count (150 - 400 x10 3/uL) 436 H MPV (7.0 - 9.0 fL) 9.9 H Neut % (Auto) (56.0 - 77.0 %) 72.0 Lymph % (Auto) (14.0 - 32.0 %) 17.4 [place] % (Auto) (4.8 - 9.0 %) 9.6 H Eos % (Auto) (0.3 - 3.7 %) 0.0 L Baso % (Auto) (0.0 - 2.0 %) 0.3 Neut # (Auto) (2.0 - 7.6 x10 3/uL) 10.35 H Lymph # (Auto) (1.0 - 3.8 x10 3/uL) 2.50 [place] # (Auto) (0.1 - 0.8 x10 3/uL) 1.38 H Eos # (Auto) (0.0 - 0.2 x10 3/uL) 0.00 Baso # (Auto) (0.0 - 0.2 x10 3/uL) 0.04 Abs Immat Gran (auto) (0.00 - 0.03 x10 3/uL) 0. 10 H Add Manual Diff NO Immature Gran % (0.0 - 2.0 %) 0.7 Nucleated RBC % (0 - 0 %) 0.0 Nucleated RBCs # (Man) (0.0 - 0.1 x10 3/uL) 0.0 0 Diagnosis, Assessment Plan Problem List/A P: 1. Status post osteotomy 2. 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 Von moore. 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 06/11: Reiterated with patient/spouse pain plan a nd recommendations. Patient feels better with IV morphine, and IV Ro baxin, and states wants to see whether pain improves today before she goes home. Case d iscussed with charge attendant. Will add Toradol plus Robaxin IV one-time dose and continue current regimen. Patient has active narcotic RX recently filled, will not require new Rx at discharge. Assessment/Plan: 1. Acute complex pain syndrome r/t surgical trau ma -Morphine 4mg q4hr PRN for pain 7-10 2nd line, breakthru pain -Oxycodone IR 10mg q4hr PRN for pain 7-10 -Tylenol 650mg q4hr PRN for pain 1-3 -Morphine ER 30mg q8hr (home dose) -Toradol 15 mg IV x1 2. Neuropathic pain -Neurontin 600mg TID (home dose) 3. Muscle spasm -Tizanidine 4mg q8hr (home dose), resume after Robaxin IV -Robaxin 1 g IV q8hr x1 more dose -Continue pain regimen as above -Monitor for S/E such as AMS , Lethargy/sedation, changes in respiratory function -Continue BP parameters -[facility]( Acute Pain services) will continue to foll ow -please call pain management for any pain-relate d concerns or questions Goal: Daily pain control to improve function and /or quality of life ([x]) Postop pain control ([x]) Pain control with PT/OT ([x]) Pain control until condition naturally res olves ([x]) Inpatient pain control ([x]) Improved sleep cycle ([x]) all narcotics medications will be adjusted according to the patient's medical condition during the hospital stay Alll diagnostic images/lab and medical records millie mosqueda the course of this admission as 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 [place] BOXING INSTRUCTOR: 05/21/2021 2 05/21/2021 Oxyc odone Hcl 10 Mg Tablet 150.00 30 Mary Isra [id number] [facility] (1890) 0 75.00 MME Private Pay [place] 05/21/2021 2 05/21/2021 Morphine Sulf Er 30 Mg T ablet 90.00 30 Mary Isra [id number] [facility] (6950) 0 90.00 [place] Private [place] 05/21/2021 1 05/21/2021 Zolpidem Tartrate 5 Mg T ablet 30.00 30 Mary Isra [id number] [facility] (3551) 0 0.25 LME Comm Ins [place] 04/28/2021 4 03/24/2021 Zolpidem Tartrate 5 Mg T ablet 30.00 30 Mary Isra [id number] [facility] (3551) 1 0.25 LME Comm Ins [place] 04/28/2021 4 04/28/2021 Oxyc odone Hcl 10 Mg Tablet 120.00 30 Mary Isra [id number] [facility] (3551) 0 60.00 MME Comm Ins [place] 04/28/2021 4 04/28/2021 Morphine Sulf Er 30 Mg T ablet 60.00 30 Mary Isra [id number] The (3551) 0 60.00 [place]ME Comm [place] 04/28/2021 3 03/24/2021 Zolpidem Tartrat e 5 Mg Tablet 30.00 30 Mary Isra [id number] The (3551) 1 0.25 LME Comm Ins [place] 04/28/2021 3 04/28/2021 Oxyc odone Hcl 10 Mg Tablet 120.00 30 Mary Isra [id number] The (3551) 0 60.00 [place]ME Comm [place] 04/28/2021 3 04/28/2021 Morphine Sulf Er 30 Mg Tablet 60.00 30 Mary Isra [id number] The (3551) 0 60.00 MME Comm Ins [place] 03/31/2021 4 03/31/2021 Oxyc odone Hcl 10 Mg Tablet 120.00 30 Mary Isra [id number] The (3551) 0 60.00 MME Comm Ins [place] 03/31/2021 4 03/31/2021 Morphine Sulf Er 30 Mg T ablet 60.00 30 Mary Isra [id number] The (3551) 0 60.00 [place]ME Comm [place] 03/31/2021 3 03/31/2021 Oxyc odone Hcl 10 Mg Tablet 120.00 30 Mary Isra [id number] The (3551) 0 60.00 [place]ME Comm [place] 03/31/2021 3 03/31/2021 Morphine Sulf Er 30 Mg Tablet 60.00 30 Mary Isra [id number] The (3551) 0 60.00 [place]ME [place] 03/30/2021 4 03/24/2021 Zolpidem Tartrate 5 Mg T ablet 30.00 30 Mary Isra [id number] The (3551) 0 0.25 LME Comm Ins [place] 03/30/2021 3 03/24/2021 Zolpidem Tartrat e 5 Mg Tablet 30.00 30 Mary Dhaliwal [id number] The (3551) 0 0.25 LME Comm Ins [place] Risk versus benefit of opiate medications: All r isk and benefit were reviewed with the patient and family members, risk not limited to respiratory depression, accidental overdose, risk of fall, altered menta l status, constipation, dependency, addiction, withdrawn, sudden . Plan discussed with: The pain plan of ca re has been discussed with the patient and the nursing staff. Patient is in agr eement with the following plan of care and wishes to proceed. Quest ions and concerns have been answered to the patient' s satisfaction. Patient has verbalized understan dennis. Plan discussed with: patient, spouse/partner, nu rse at 1129 RPT #:[id number] END OF REPORT 2021-06-11 09:48:00-00:00 [facility] REPORT#:[id number] REPORT STATUS: Signed DATE:06/11/21 TIME: 0948 PATIENT: PRATIBHA JENNINGS UNIT #: [id number] ROOM/BED: [place] [address] : 64 AGE: 55 SEX: F ATTEND: Jasvir Patterson od, MD ADM AUTHOR: Navi Preston PACKAGING ASSOCIATE * ALL edits or amendments must be made on the el [employer]/computer document * Navi Preston 06/11/21 0948: Subjective Chief complaint: f/u left wrist pain s/p L wrist hardware removal, distal radius osteotomy with ICBG, FPL repair, ulnar shortening osteotomy and TFCC repair Pain improves with medication, states he will hager ving significant pain once medication wears off She mentioned she wants to s ee how she feels through the day, so she can decide if she can go home today Review of Systems All systems rev neg: except as marked Objective General VS/I O: Vital Signs Date Temp Pulse Resp B/P B/P Mean Pulse Ox FiO2 06/10-06/11 36.4-37.3 76-89 15-20 108-185/68-110 82.0-134.6 94-99 Last Documented: Result Date Time Pulse Ox 94 06/11 075 B/P 165/78 06/11 757 B/P Mean 107.1 06/11 0757 O2 Delivery Room air 06/11 075 Temp 36.4 06/11 0757 Pulse 82 06/11 0757 Resp 20 06/11 075 O2 Flow Rate 10 06/09 1559 24 hour I O ending at 0700: 06/11 0700 06/10 1900 Intake Total 580.00 Output Total Balance 580.00 Intake, IV 100.00 Intake, Oral 480 Number 0 Bowel Movements Number Voids 1 PATIENT WEIGHT: Weight (lb): 118 Weight (oz): 6.21 Weight (kg): 53.700 Medications: Active Meds + DC'd Last 24 Hrs Ketorolac Tromethamine 30 MG Q8HR IV (DC) Methocarbamol 1,000 MG Q8HR IV (CAN) Sodium Chloride 100 ML Methocarbamol 1,000 MG Q8HR IV Sodium Chloride 100 ML Ketorolac Tromethamine 30 MG ONCE ONE IV (DC) Morphine Sulfate 30 MG Q8HR PO Amlodipine Besylate 5 MG DAILY PO Fluoxetine HCl 10 MG DAILY PO Nicotine 14 MG DAILY TRANSDERM Pantoprazole 40 MG DAILY PO Topiramate 100 MG DAILY PO Ondansetron HCl 4 MG Q6H PRN PRN IV Cefazolin Sodium 2 GM Q8H IV Sodium Chloride 20 ML ASDIR IV Tizanidine HCl 4 MG Q8HR PO (DC) Atorvastatin Calcium 20 MG BEDTIME PO Gabapentin 600 MG TID PO Morphine Sulfate 30 MG Q12HR PO (DC) Sucralfate 1 GM BID PO Zolpidem Tartrate 5 MG BEDTIME PO Lidocaine 1 PATCH Q24H TOPICAL Morphine Sulfate 4 MG Q4H PRN PRN IV Oxycodone HCl 10 MG Q4H PRN PRN PO Hydroxyzine HCl 25 MG TID PRN PRN PO Ropivacaine 150 MG ASDIR PRN LOCAL Sodium Chloride 20 ML ASDIR IV Physical Exam General appearance: alert, awake, no respiratory distress Wound/Incision: Location: LUE Site condition: dressing clean dry, dressing in tact Cardiovascular: normal capillary refill, regular rate rhythm Respiratory: no distress, symmetric expansion Abdomen: soft, non-tender Extremities: moves all, no edema, decreased rang e of motion (LUE) Neuro/MARKER ASSEMBLER: alert, oriented X 3, normal speech Psychiatry: normal affect, normal judgment/insig ht Results Findings/data: Laboratory Tests: 06/10 0446 Chemistry Sodium (134 - 147 mEq/L) 137 Potassium (3.4 - 5.0 mEq/L) 3.7 Chloride (100 - 108 mEq/L) 106 Carbon Dioxide (21 - 33 mEq/l) 27 Anion Gap (0 - 20) 8 BUN (7 - 18 mg/dL) 7 Creatinine (0.6 - 1.3 mg/dL) 0.7 Glomerular Filtr Rate (90 - 95) 86.6 L Glucose (70 - 110 mg/dL) 111 H Calcium (8.0 - 10.5 mg/dL) 9.0 Magnesium (1.80 - 2.40 mg/dL) 1.91 Hematology WBC (4.5 - 11.0 x10 3/uL) 14.4 H RBC (3.54 - 5.02 x10 6/uL) 3.96 Hgb (11.0 - 15.0 g/dL) 9.4 L Hct (33.0 - 45.0 %) 30.2 L MCV (81.0 - 99.0 fL) 76.3 L MCH (27.0 - 33.0 pg) 23.7 L MCHC (33.0 - 37.0 g/dL) 31.1 L RDW (11.5 - 14.5 %) 18.7 H Plt Count (150 - 400 x10 3/uL) 436 H MPV (7.0 - 9.0 fL) 9.9 H Neut % (Auto) (56.0 - 77.0 %) 72.0 Lymph % (Auto) (14.0 - 32.0 %) 17.4 [place] % (Auto) (4.8 - 9.0 %) 9.6 H Eos % (Auto) (0.3 - 3.7 %) 0.0 L Baso % (Auto) (0.0 - 2.0 %) 0.3 Neut # (Auto) (2.0 - 7.6 x10 3/uL) 10.35 H Lymph # (Auto) (1.0 - 3.8 x10 3/uL) 2.50 [place] # (Auto) (0.1 - 0.8 x10 3/uL) 1.38 H Eos # (Auto) (0.0 - 0.2 x10 3/uL) 0.00 Baso # (Auto) (0.0 - 0.2 x10 3/uL) 0.04 Abs Immat Gran (auto) (0.00 - 0.03 x10 3/uL) 0. 10 H Add Manual Diff NO Immature Gran % (0.0 - 2.0 %) 0.7 Nucleated RBC % (0 - 0 %) 0.0 Nucleated RBCs # (Man) (0.0 - 0.1 x10 3/uL) 0.0 0 Diagnosis, Assessment Plan Problem List/A P: 1. Status post osteotomy 2. 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 Von moore. 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 06/11: Reiterated with patient/spouse pain plan a nd recommendations. Patient feels better with IV morphine, and IV Ro baxin, and states wants to see whether pain improves today before she goes home. Case d iscussed with charge attendant. Will add Toradol plus Robaxin IV one-time dose and continue current regimen. Patient has active narcotic RX recently filled, will not require new Rx at discharge. Assessment/Plan: 1. Acute complex pain syndrome r/t surgical trau ma -Morphine 4mg q4hr PRN for pain 7-10 2nd line, breakthru pain -Oxycodone IR 10mg q4hr PRN for pain 7-10 -Tylenol 650mg q4hr PRN for pain 1-3 -Morphine ER 30mg q8hr (home dose) -Toradol 15 mg IV x1 2. Neuropathic pain -Neurontin 600mg TID (home dose) 3. Muscle spasm -Tizanidine 4mg q8hr (home dose), resume after Robaxin IV -Robaxin 1 g IV q8hr x1 more dose -Continue pain regimen as above -Monitor for S/E such as AMS , Lethargy/sedation, changes in respiratory function -Continue BP parameters -APS( Acute Pain services) will continue to foll ow -please call pain management for any pain-relate d concerns or questions Goal: Daily pain control to improve function and /or quality of life ([x]) Postop pain control ([x]) Pain control with PT/OT ([x]) Pain control until condition naturally res olves ([x]) Inpatient pain control ([x]) Improved sleep cycle ([x]) all narcotics medications will be adjusted according to the patient's medical condition during the hospital stay Alll diagnostic images/lab and medical records d uring the course of this admission as 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 [place] [employer]OXING [employer]: 05/21/2021 2 05/21/2021 Oxyc odone Hcl 10 Mg Tablet 150.00 30 Mary Isra [id number] [facility] (0260) 0 75.00 [facility] Private [place] 05/21/2021 2 05/21/2021 Morphine Sulf Er 30 Mg T ablet 90.00 30 Mary Is[facility] [id number] [facility] (0260) 0 90.00 [place] 05/21/2021 1 05/21/2021 Zolpidem Tartrate 5 Mg T ablet 30.00 30 Mary Isra [id number] [facility] (3551) 0 0.25 LME Comm Ins [place] 04/28/2021 4 03/24/2021 Zolpidem Tartrate 5 Mg T ablet 30.00 30 Mary Isra [id number] [facility] (3551) 1 0.25 [place] [place] 04/28/2021 4 04/28/2021 Oxyc odone Hcl 10 Mg Tablet 120.00 30 Mary Isra [id number] [facility] (355) 0 60.00 [place] 04/28/2021 4 04/28/2021 Morphine Sulf Er 30 Mg T ablet 60.00 30 Mary Isra [id number] [facility] (355) 0 60.00 [place] 04/28/2021 3 03/24/2021 Zolpidem Tartrat e 5 Mg Tablet 30.00 30 Mary Isra [id number] [facility] (3551) 1 0.25 L[place] Comm [place] 04/28/2021 3 04/28/2021 Oxyc odone Hcl 10 Mg Tablet 120.00 30 Mary Isra [id number] [facility] (3551) 0 60.00 [place] 04/28/2021 3 04/28/2021 Morphine Sulf Er 30 Mg Tablet 60.00 30 Mary Isra [id number] [facility] (3551) 0 60.00 [place]ME [place] 03/31/2021 4 03/31/2021 Oxyc odone Hcl 10 Mg Tablet 120.00 30 Mary Isra [id number] The (3551) 0 60.00 [place] 03/31/2021 4 03/31/2021 Morphine Sulf Er 30 Mg T ablet 60.00 30 Mary Isra [id number] The (3551) 0 60.00 [place] 03/31/2021 3 03/31/2021 Oxyc odone Hcl 10 Mg Tablet 120.00 30 Mary Isra [id number] The (3551) 0 60.00 [place]ME [place] 03/31/2021 3 03/31/2021 Morphine Sulf Er 30 Mg Tablet 60.00 30 Mary Isra [id number] The (3551) 0 60.00 [place]ME [place] 03/30/2021 4 03/24/2021 Zolpidem Tartrate 5 Mg T ablet 30.00 30 Mary Isra [id number] The (3551) 0 0.25 LME Comm Ins [place] 03/30/2021 3 03/24/2021 Zolpidem Tartrat e 5 Mg Tablet 30.00 30 Mary Isra [id number] The (3551) 0 0.25 LME Comm Ins [place] Risk versus benefit of opiate medications: All r isk and benefit were reviewed with the patient and family members, risk not limited to respiratory depression, accidental overdose, risk of fall, altered menta l status, constipation, dependency, addiction, withdrawn, sudden . Plan discussed with: The pain plan of ca re has been discussed with the patient and the nursing staff. Patient is in agr eement with the following plan of care and wishes to proceed. Quest ions and concerns have been answered to the patient' s satisfaction. Patient has verbalized understan ding. Plan discussed with: patient, spouse/partner, Jatinder Sutherlanda M 07/11/21 1751: Attestations Physician Attestation Agree w/findings plan: I attest that I have reviewe d the PACKAGING ASSOCIATE note and that the components of the history of present illness, physical exam, the assessment and plan documented and Agreed with the findings and plan as documented by Luare Preston NP at 1129 at 1751 RPT #:[id number] END OF REPORT 2021-06-11 09:29:00-00:00 [facility] ([facility] Orthopaedic Progress Note REPORT#:[id number] REPORT STATUS: Signed DATE:06/11/21 TIME: 928 PATIENT: PRATIBHA JENNINGS UNIT #: [id number] ROOM/BED: [place] [address] : 64 AGE: 55 SEX: F ATTEND: Jasvir Patterson od, MD ADM AUTHOR: Beverly Cartagena MD * ALL edits or amendments must be made on the [employer] document * Subjective Chief complaint: L wrist pain HPI: POD2 s/p L wrist hardware re moval, distal radius osteotomy with ICBG, FPL repair , ulnar shortening osteotomy and TFCC repair: Pt states pain severe after block wore off. Feel s better today Objective VS: Last Documented: Result Date Time Pulse Ox 94 06/11 0757 B/P 165/78 06/11 0757 B/P Mean 107.1 06/11 0757 O2 Delivery Room air 06/11 075 Temp 97.5 06/11 0757 Pulse 82 06/11 0757 Resp 20 06/11 0757 O2 Flow Rate 10 06/09 1559 PATIENT WEIGHT: Weight (lb): 118 Weight (oz): 6.21 Weight (kg): 53.700 Free Text Obj Notes Free Text Obj Notes: NAD LUE:splint c/d/i, fingers ww p, full flexion and extension of fingers, unable to test thumb ROM due to splint and tendon repair, SILT m/r/u L hip dressing c/d/i, no drainage or strikethrou gh Diagnosis, Assessment Plan Free text A P: POD 2 s/p L wrist hardware removal, distal radiu s osteotomy with ICBG, FPL repair, ulnar shortening osteotomy and TFCC repa ir: -doing well postop -appreciate assistance with postop pain control w/acute pain -appreciate hospitalist assistance -postop ancef x doses, completed -NWB LUE, WBAT LLE -ok to discharge home once pain controlled. F/u with me in 2 weeks Electronically Signed by Beverly Cartagena MD on 0 06/11/21 at 0931 RPT #:[id number] END OF REPORT 2021-06-11 07:26:00-00:00 [facility] Clinical Note REPORT#:[id number] REPORT STATUS: Signed DATE:06/11/21 TIME: 725 PATIENT: PRATIBHA JENNINGS UNIT #: [id number] ROOM/BED: [place] [address] : 64 AGE: 55 SEX: F ATTEND: Jasvir Patterson od, MD ADM AUTHOR: Tha Luong NP * ALL edits or amendments must be made on the [employer] document * Clinical Note Note: DC summary # [id number] Electronically Signed by Tah Luong PACKAGING ASSOCIATE on at 0726 RPT #:[id number] END OF REPORT 2021-06-11 07:26:00-00:00 [facility] ([facility]) Clinical Note REPORT#:[id number] REPORT STATUS: Signed DATE:06/11/21 TIME: 725 PATIENT: PRATIBHA JENNINGS UNIT #: [id number] ROOM/BED: [place] [address] : 63 AGE: 55 SEX: F ATTEND: Jasvir Patterson od, MD ADM AUTHOR: Tha Luong NP * ALL edits or amendments must be made on the [employer] document * Tha Luong 06/11/21 0726: Clinical Note Note: DC summary # [id number] Reji Patterson 06/11/219: Clinical Note Note: Patient seen and examined, c linical data reviewed and I agree with the findings and plan as documented by Tha Luong NP Electronically Signed by Tha Luong NP on at 0726 RPT #:[id number] END OF REPORT 2021-06-11 07:26:00-00:00 [facility] ([facility]) Clinical Note REPORT#:[id number] REPORT STATUS: Signed DATE:06/11/21 TIME: 725 PATIENT: PRATIBHA JENNINGS UNIT #: [id number] ROOM/BED: [facility] : 63 AGE: 55 SEX: F ATTEND: Jasvir Patterson od, MD ADM AUTHOR: Tha Luong PACKAGING ASSOCIATE * ALL edits or amendments must be made on the el [employer]ronic/computer document * Tha Luong 06/11/21 0726: Clinical Note Note: DC summary # [id number] Reji Patterson 06/11/211928: Clinical Note Note: Patient seen and examined, c linical data reviewed and I agree with the findings and plan as documented by Tha Luong NP Electronically Signed by Tha Luong NP on at 0726 Electronically Signed by Reji Patterson MD on 0 06/11/21 at 1937 RPT #:[id number] END OF REPORT 2021-06-11 07:26:00-00:00 [id number] [address] PATIENT NAME: PRATIBHA JENNINGS ADMIT DATE: 06/09 ACCOUNT NO: [id number] ROOM NO: [facility] AGE: 55 REPORT TYPE: DISCHARGE SUMMARY SEX: F ADMITTING PHYSICIAN:Reji Patterson MD ATTENDING PHYSICIAN:Reji Patterson MD ADMISSION DATE: 06/09/2021 DISCHARGE DATE: DISCHARGE DIAGNOSES: 1. 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 2. Intractable left shoulder pain and ar m pain, status post surgery, improved. 3. History of hypertension. 4. History of hyperlipidemia. 5. Gastroesophageal reflux disease. REVIEW OF SYSTEMS: All 14-point systems reviewed . HOSPITAL COURSE: This is a 55-year-old female wi a past medical history of hypertension, hyperlipidemia, GERD, left distal radius malunion and distal radioulnar joint instability, came to [facility] for elective procedure. She had a surgery and she was in severe pain. She is supposed to go home yesterday, but her pain was very severe and required IV zachary n medication. The patient improved slowly gradually. [facility] and will follow up with the PCP and surgery. She will resume her diet and ex ercise. Dictated By: Tha Luong NP for Reji Patterson MD WT: DS:CICI/LEVY/NTS Conf#: [id number]/DID#: [id number] Authenticated by Reji Patterson MD On 06/11 07:38:14 PM Authenticated by Tha Luong On 06/16/2021 07: 04:52 AM at 0705 Electronically Signed by Tha Luong NP on at 0705 PATIENT NAME: PRATIBHA JENNINGS [id number] [id number] 07:21:00-00:00 [facility] REPORT#:[id number] REPORT STATUS: Signed DATE:06/11/21 TIME: 720 PATIENT: PRATIBHA JENNINGS UNIT #: [id number] ROOM/BED: G.414-1 : 64 AGE: 55 SEX: F ATTEND: Jasvir Patterson od, MD ADM AUTHOR: Tha Luong NP * ALL edits or amendments must be made on the [employer]/computer document * Subjective Chief Complaint: She is doing better. Left shoulder dressing is intact. No bleeding. No Cp, fever, chills. No N/V/D. BP and HR stable. Review of Systems Constitutional: Reports: fatigue, generalized weakness. Respiratory: Denies: hemoptysis, parox nocturnal dyspnea, ple urisy, pneumonia, productive cough (sputum). Cardiovascular: Denies: chest pain, edema, orthopnea, palpitatio ns. GI: Denies: abdominal pain, diarrhea, GERD, hemateme sis, hiatal hernia, melena. : Denies: dysuria, frequency, nocturia, urgency, u rinary retention. Musculoskeletal: Reports: extremity pain, joint pain. Neuro: Denies: confusion, gait problem, headache, slurr ed speech. Psych: Denies: confusion, homicidal ideation, insomnia. Objective General VS/I O: Vital Signs Date Temp Pulse Resp B/P B/P Mean Pulse Ox FiO2 06/10-06/11 36.5-37.3 76-89 15-16 108-185/68-110 82.0-134.6 95-99 Last Documented: Result Date Time Pulse Ox 95 06/11 0339 B/P 137/82 06/11 0339 B/P Mean 100.5 06/11 0339 O2 Delivery Room air 06/11 033 Temp 36.7 06/11 0339 Pulse 77 06/11 0339 Resp 16 06/11 0339 O2 Flow Rate 06/09 1559 24 hour I O ending at 0700: 06/11 0700 06/10 1900 Intake Total 580.00 Output Total Balance 580.00 Intake, IV 100.00 Intake, Oral 480 Number 0 Bowel Movements Number Voids 1 PATIENT WEIGHT: Weight (lb): 118 Weight (oz): 6.21 Weight (kg): 53.700 Medications: Active Meds + DC'd Last 24 Hrs Ketorolac Tromethamine 30 MG Q8HR IV (DC) Methocarbamol 1,000 MG Q8HR IV (CAN) Sodium Chloride 100 ML Methocarbamol 1,000 MG Q8HR IV Sodium Chloride 100 ML Ketorolac Tromethamine 30 MG ONCE ONE IV (DC) Morphine Sulfate 30 MG Q8HR PO Amlodipine Besylate 5 MG DAILY PO Fluoxetine HCl 10 MG DAILY PO Nicotine 14 MG DAILY TRANSDERM Pantoprazole 40 MG DAILY PO Topiramate 100 MG DAILY PO Ondansetron HCl 4 MG Q6H PRN PRN IV Cefazolin Sodium 2 GM Q8H IV Sodium Chloride 20 ML ASDIR IV Tizanidine HCl 4 MG Q8HR PO (DC) Atorvastatin Calcium 20 MG BEDTIME PO Gabapentin 600 MG TID PO Morphine Sulfate 30 MG Q12HR PO (DC) Sucralfate 1 GM BID PO Zolpidem Tartrate 5 MG BEDTIME PO Lidocaine 1 PATCH Q24H TOPICAL Morphine Sulfate 4 MG Q4H PRN PRN IV Oxycodone HCl 10 MG Q4H PRN PRN PO Hydroxyzine HCl 25 MG TID PRN PRN PO Ropivacaine 150 MG ASDIR PRN LOCAL Sodium Chloride 20 ML ASDIR IV Nutrition assessment: The data set between the solid lines has been im ported from the dietitian's assessment. Any exceptions have been noted under Provider comments. BMI Calculated: 20.3 Nutrition related diagnosis: Nutrition diagnosis details: Nutrition problem: Nutrition etiology: Nutrition signs and symptoms: Nutrition prescription: Dietitian name: Assessment completed: Provider comments on imported dietitian assessme nt: Physical Exam General appearance: alert, awake, oriented Head/Eyes: atraumatic, normocephalic, PERRLA Neck: full range of motion, supple/no meningismus, no bruit/NL carotids, no JVD Cardiovascular: normal capillary refill, normal heart sounds, regular rate rhythm Respiratory: aerating well, clear to auscultatio n, symmetric expansion Abdomen: non-tender, normal bowel sounds, soft Genitourinary: no CVA tenderness, no discharge, no flank pain Extremities: Extremities: full range of motion, norm al temperature, no calf tenderness, no clubbing Neuro/MARKER ASSEMBLER: alert, oriented x 3, CNII-XII intact Results Results: vital signs stable, current med profile rev'd Treatment Prophylaxis Treatment Prophylaxis Oxygen: room air Diagnosis, Assessment Plan Hospital course to date: ASSESSMENT: - 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 - Intractable Left shoulder pain and arm pain, s tatus post surgery, improved. - History of hypertension. - History of hyperlipidemia. - Gastroesophageal reflux disease. PLAN: Floor. Will go home today with HH. Will go on PO pain meds. Continue pain medication. Antiemetics. Follow labs and replace as needed. SCD for DVT prophylaxis. Continue home medication. Monitor. Code status: full code Plan discussed with: patient, family, admitting physician, consultants, nurse Electronically Signed by Tha Luong NP on at 0725 RPT #:[id number] END OF REPORT 2021-06-11 07:21:00-00:00 [facility] REPORT#:[id number] REPORT STATUS: Signed DATE:06/11/21 TIME: 720 PATIENT: PRATIBHA JENNINGS UNIT #: [id number] ROOM/BED: [place] [address] : 63 AGE: 55 SEX: F ATTEND: Jasvir Patterson od, MD ADM AUTHOR: Tha Luong NP * ALL edits or amendments must be made on the PacerPro/computer document * Tha Luong 06/11/21 0721: Subjective Chief Complaint: She is doing better. Left shoulder dressing is intact. No bleeding. No Cp, fever, chills. No N/V/D. BP and HR stable. Review of Systems Constitutional: Reports: fatigue, generalized weakness. Respiratory: Denies: hemoptysis, parox nocturnal dyspnea, ple urisy, pneumonia, productive cough (sputum). Cardiovascular: Denies: chest pain, edema, orthopnea, palpitatio ns. GI: Denies: abdominal pain, diarrhea, GERD, hemateme sis, hiatal hernia, melena. : Denies: dysuria, frequency, nocturia, urgency, u rinary retention. Musculoskeletal: Reports: extremity pain, joint pain. Neuro: Denies: confusion, gait problem, headache, slurr ed speech. Psych: Denies: confusion, homicidal ideation, insomnia. Objective General VS/I O: Vital Signs Date Temp Pulse Resp B/P B/P Mean Pulse Ox FiO2 06/10-06/11 36.5-37.3 76-89 15-16 108-185/68-110 82.0-134.6 95-99 Last Documented: Result Date Time Pulse Ox 95 06/11 0339 B/P 137/82 06/11 0339 B/P Mean 100.5 06/11 0339 O2 Delivery Room air 06/11 0339 Temp 36.7 06/11 0339 Pulse 77 06/11 0339 Resp 16 06/11 0339 O2 Flow Rate 10 06/09 1559 24 hour I O ending at 0700: 06/11 0700 06/10 1900 Intake Total 580.00 Output Total Balance 580.00 Intake, IV 100.00 Intake, Oral 480 Number 0 Bowel Movements Number Voids 1 PATIENT WEIGHT: Weight (lb): 118 Weight (oz): 6.21 Weight (kg): 53.700 Medications: Active Meds + DC'd Last 24 Hrs Ketorolac Tromethamine 30 MG Q8HR IV (DC) Methocarbamol 1,000 MG Q8HR IV (CAN) Sodium Chloride 100 ML Methocarbamol 1,000 MG Q8HR IV Sodium Chloride 100 ML Ketorolac Tromethamine 30 MG ONCE ONE IV (DC) Morphine Sulfate 30 MG Q8HR PO Amlodipine Besylate 5 MG DAILY PO Fluoxetine HCl 10 MG DAILY PO Nicotine 14 MG DAILY TRANSDERM Pantoprazole 40 MG DAILY PO Topiramate 100 MG DAILY PO Ondansetron HCl 4 MG Q6H PRN PRN IV Cefazolin Sodium 2 GM Q8H IV Sodium Chloride 20 ML ASDIR IV Tizanidine HCl 4 MG Q8HR PO (DC) Atorvastatin Calcium 20 MG BEDTIME PO Gabapentin 600 MG TID PO Morphine Sulfate 30 MG Q12HR PO (DC) Sucralfate 1 GM BID PO Zolpidem Tartrate 5 MG BEDTIME PO Lidocaine 1 PATCH Q24H TOPICAL Morphine Sulfate 4 MG Q4H PRN PRN IV Oxycodone HCl 10 MG Q4H PRN PRN PO Hydroxyzine HCl 25 MG TID PRN PRN PO Ropivacaine 150 MG ASDIR PRN LOCAL Sodium Chloride 20 ML ASDIR IV Nutrition assessment: The data set between the solid lines has been im ported from the dietitian's assessment. Any exceptions have been noted under Provider comments. BMI Calculated: 20.3 Nutrition related diagnosis: Nutrition diagnosis details: Nutrition problem: Nutrition etiology: Nutrition signs and symptoms: Nutrition prescription: Dietitian name: Assessment completed: Provider comments on imported dietitian assessme nt: Physical Exam General appearance: alert, awake, oriented Head/Eyes: atraumatic, normocephalic, PERRLA Neck: full range of motion, supple/no meningismus, no bruit/NL carotids, no JVD Cardiovascular: normal capillary refill, normal heart sounds, regular rate rhythm Respiratory: aerating well, clear to auscultatio n, symmetric expansion Abdomen: non-tender, normal bowel sounds, soft Genitourinary: no CVA tenderness, no discharge, no flank pain Extremities: Extremities: full range of motion, norm al temperature, no calf tenderness, no clubbing Neuro/MARKER ASSEMBLER: alert, oriented x 3, CNII-XII intact Results Results: vital signs stable, current med profile rev'd Treatment Prophylaxis Treatment Prophylaxis Oxygen: room air Diagnosis, Assessment Plan Hospital course to date: ASSESSMENT: - 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 - Intractable Left shoulder pain and arm pain, s tatus post surgery, improved. - History of hypertension. - History of hyperlipidemia. - Gastroesophageal reflux disease. PLAN: Floor. Will go home today with HH. Will go on PO pain meds. Continue pain medication. Antiemetics. Follow labs and replace as needed. SCD for DVT prophylaxis. Continue home medication. Monitor. Code status: full code Plan discussed with: patient, family, admitting physician, consultants, nurse Reji Patterson 06/11/211928: Attestations Physician Attestation Agree w/findings plan: Patient seen and examined, c linical data reviewed and I agree with the findings and plan as documented by Tha Luong NP Electronically Signed by Tha Luong PACKAGING ASSOCIATE on at 0725 RPT #:[id number] END OF REPORT 2021-06-11 07:21:00-00:00 [facility] Internal Medicine Prog. Note REPORT#:[id number] REPORT STATUS: Signed DATE:06/11/21 TIME: 720 PATIENT: PRATIBHA JENNINGS UNIT #: [id number] ROOM/BED: [place] [address] : 64 AGE: 55 SEX: F ATTEND: Jasvir Patterson od, MD ADM AUTHOR: Tha Luong NP * ALL edits or amendments must be made on the PacerPro/computer document * Tha Luong 06/11/21 0721: Subjective Chief Complaint: She is doing better. Left shoulder dressing is intact. No bleeding. No Cp, fever, chills. No N/V/D. BP and HR stable. Review of Systems Constitutional: Reports: fatigue, generalized weakness. Respiratory: Denies: hemoptysis, parox nocturnal dyspnea, ple urisy, pneumonia, productive cough (sputum). Cardiovascular: Denies: chest pain, edema, orthopnea, palpitatio ns. GI: Denies: abdominal pain, diarrhea, GERD, hemateme sis, hiatal hernia, melena. : Denies: dysuria, frequency, nocturia, urgency, u rinary retention. Musculoskeletal: Reports: extremity pain, joint pain. Neuro: Denies: confusion, gait problem, headache, slurr ed speech. Psych: Denies: confusion, homicidal ideation, insomnia. Objective General VS/I O: Vital Signs Date Temp Pulse Resp B/P B/P Mean Pulse Ox FiO2 06/10-06/11 36.5-37.3 76-89 15-16 108-185/68-110 82.0-134.6 95-99 Last Documented: Result Date Time Pulse Ox 95 06/11 0339 B/P 137/82 06/11 0339 B/P Mean 100.5 06/11 0339 O2 Delivery Room air 06/11 0339 Temp 36.7 06/11 0339 Pulse 77 06/11 0339 Resp 16 06/11 0339 O2 Flow Rate 10 06/09 1559 24 hour I O ending at 0700: 06/11 0700 06/10 1900 Intake Total 580.00 Output Total Balance 580.00 Intake, IV 100.00 Intake, Oral 480 Number 0 Bowel Movements Number Voids 1 PATIENT WEIGHT: Weight (lb): 118 Weight (oz): 6.21 Weight (kg): 53.700 Medications: Active Meds + DC'd Last 24 Hrs Ketorolac Tromethamine 30 MG Q8HR IV (DC) Methocarbamol 1,000 MG Q8HR IV (CAN) Sodium Chloride 100 ML Methocarbamol 1,000 MG Q8HR IV Sodium Chloride 100 ML Ketorolac Tromethamine 30 MG ONCE ONE IV (DC) Morphine Sulfate 30 MG Q8HR PO Amlodipine Besylate 5 MG DAILY PO Fluoxetine HCl 10 MG DAILY PO Nicotine 14 MG DAILY TRANSDERM Pantoprazole 40 MG DAILY PO Topiramate 100 MG DAILY PO Ondansetron HCl 4 MG Q6H PRN PRN IV Cefazolin Sodium 2 GM Q8H IV Sodium Chloride 20 ML ASDIR IV Tizanidine HCl 4 MG Q8HR PO (DC) Atorvastatin Calcium 20 MG BEDTIME PO Gabapentin 600 MG TID PO Morphine Sulfate 30 MG Q12HR PO (DC) Sucralfate 1 GM BID PO Zolpidem Tartrate 5 MG BEDTIME PO Lidocaine 1 PATCH Q24H TOPICAL Morphine Sulfate 4 MG Q4H PRN PRN IV Oxycodone HCl 10 MG Q4H PRN PRN PO Hydroxyzine HCl 25 MG TID PRN PRN PO Ropivacaine 150 MG ASDIR PRN LOCAL Sodium Chloride 20 ML ASDIR IV Nutrition assessment: The data set between the solid lines has been im ported from the dietitian's assessment. Any exceptions have been noted under Provider comments. BMI Calculated: 20.3 Nutrition related diagnosis: Nutrition diagnosis details: Nutrition problem: Nutrition etiology: Nutrition signs and symptoms: Nutrition prescription: Dietitian name: Assessment completed: Provider comments on imported dietitian assessme nt: Physical Exam General appearance: alert, awake, oriented Head/Eyes: atraumatic, normocephalic, PERRLA Neck: full range of motion, supple/no meningismus, no bruit/NL carotids, no JVD Cardiovascular: normal capillary refill, normal heart sounds, regular rate rhythm Respiratory: aerating well, clear to auscultatio n, symmetric expansion Abdomen: non-tender, normal bowel sounds, soft Genitourinary: no CVA tenderness, no discharge, no flank pain Extremities: Extremities: full range of motion, norm al temperature, no calf tenderness, no clubbing Neuro/MARKER ASSEMBLER: alert, oriented x 3, CNII-XII intact Results Results: vital signs stable, current med profile rev'd Treatment Prophylaxis Treatment Prophylaxis Oxygen: room air Diagnosis, Assessment Plan Hospital course to date: ASSESSMENT: - 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 - Intractable Left shoulder pain and arm pain, s tatus post surgery, improved. - History of hypertension. - History of hyperlipidemia. - Gastroesophageal reflux disease. PLAN: Floor. Will go home today with HH. Will go on PO pain meds. Continue pain medication. Antiemetics. Follow labs and replace as needed. SCD for DVT prophylaxis. Continue home medication. Monitor. Code status: full code Plan discussed with: patient, family, admitting physician, consultants, nurse Reji Patterson 06/11/21 192: Attestations Physician Attestation Agree w/findings plan: Patient seen and examined, c linical data reviewed and I agree with the findings and plan as documented by Tha Luong NP Electronically Signed by Tha Luong PACKAGING ASSOCIATE on at 0725 Electronically Signed by Reji Patterson MD on 0 06/11/21 at 1937 RPT #:[id number] END OF REPORT 2021-06-10 20:06:00-00:00 [facility] Orthopaedic Progress Note REPORT#:[id number] REPORT STATUS: Signed DATE:06/10/21 TIME: 2005 PATIENT: PRATIBHA JENNINGS UNIT #: [id number] ROOM/BED: [place] [address] : 64 AGE: 55 SEX: F ATTEND: Jasvir Patterson od, MD ADM AUTHOR: Beverly Cartagena MD * ALL edits or amendments must be made on the PacerPro/computer document * Subjective Chief complaint: L wrist pain HPI: Pt is POD 1 s/p L wrist hard miguel removal, distal radius osteotomy with ICBG, FPL repair, ulnar shortening osteotomy and TFCC repa ir. States block is still in effect and really no pain. N o pain along L hip. Able to ambulate in room without complaints. Review of Systems Constitutional: Denies: chills, fever. Objective VS: Last Documented: Result Date Time Pulse Ox 95 07/14 1918 B/P 167/91 06/10 1918 B/P Mean 116.4 06/10 1918 O2 Delivery Room air 06/10 1918 Temp 97.7 06/10 1918 Pulse 81 06/10 1918 Resp 16 06/10 1918 O2 Flow Rate 10 06/09 1559 PATIENT WEIGHT: Weight (lb): 118 Weight (oz): 6.21 Weight (kg): 53.700 Physical Exam General appearance: agitated (NAD) Free Text Obj Notes Free Text Obj Notes: NAD LUE:splint c/d/i, fingers wwp, block still in ef fect L hip dressing c/d/i, no drainage or strikethrou gh Diagnosis, Assessment Plan Free text A P: POD 1 s/p L wrist hardware removal, distal radiu s osteotomy with ICBG, FPL repair, ulnar shortening osteotomy and TFCC repa ir: -doing well postop -appreciate assistance with postop pain control w/acute pain -appreciate hospitalist assistance -postop ancef x doses, completed -NWB LUE, WBAT LLE -ok to discharge home once pain controlled. F/u with me in 2 weeks Electronically Signed by Beverly Cartagena MD on 0 06/10/21 at 2009 RPT #:[id number] END OF REPORT 2021-06-10 10:54:00-00:00 [facility] ([facility]) Pain Management Consult Note REPORT#:[id number] REPORT STATUS: Signed DATE:06/10/21 TIME: 1054 PATIENT: PRATIBHA JENNINGS UNIT #: [id number] ROOM/BED: [place] [address] : 63 AGE: 55 SEX: F ATTEND: Jasvir Patterson od, MD ADM AUTHOR: Navi Preston NP * ALL edits or amendments must be made on the PacerPro/computer document * History of Present Illness Primary Care Physician: Reji Patterson MD History of Present Illness HPI Requesting Clinician: Tha Luong NP Reason for consult: Pain management Chief complaint: Left arm pain HPI: This is a 55-year-old female with PMH of HTN, HL D, GERD, 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 Patient has chronic pain, c/o post-op pain. Pain management consulted. Pain history: Patient has history of chronic zachary n, had nerve block intraoperatively. Reports LUE pain, mild-moderat e throbbing achy pain, 6/10 intensity, no aggravating factors, relieved with rest and medications. Denies numbness or parethesia. Home medications: 1. Neurontin 600mg TID 2. TOpiramate 100mg daily 3. Morphine ER 30mg TID 4. Tizanidine 4mg q8hr PRN 5. Oxycodone IR 10mg q4hr PRN Review of Systems Constitutional: Denies: generalized weakness, lethargy. Respiratory: Denies: SOB. Cardiovascular: Denies: palpitations. GI: Denies: nausea, vomiting. Musculoskeletal: extremity pain (LUE), joint pain. Neuro: Denies: headache, numbness. History Past History Past Medical History: Reports: GERD/gastritis, Hypertension, Dyslipide gloria. Denies: Congestive heart failure, Coronary artery disease, Diabetes john torrez. Past surgical history: back/neck, knee, tonsille ctomy Past social history: no drug abuse, alcohol use, smoker Medications: Home Medications: Medication Dose/Rte/Freq Days Qty Entered Last Max Daily Dose Reviewed ZOLPIDEM (AMBIEN) 5 MG PO BEDTIME 06/09/2105/28 Strength: 5 MG TAB 2001 2001 GABAPENTIN (NEURONTIN) 600 MG PO TID 07/02/14 Strength: 600 MG TAB [address] 60 MG PO DAILY 07/02/14 (DEXILANT) 1237 Strength: 60 MG CAP. LIDOCAINE (LIDODERM 5%) 07/02/14 Strength: 5 % PATCH 123 oxyCODONE/APAP 1 TAB PO TID 07/02/14 06/09/21 (PERCOCET 10/325 MG) 1239 1650 Strength: 10 MG-325 MG TAB ATORVASTATIN (LIPITOR) 20 MG PO BEDTIME 9 Strength: 20 MG TAB 2058 MORPHINE SULFATE 30 MG PO TID 03/08/19 06/09/21 (MORPHINE) 2106 1650 Strength: 15 MG TAB amLODIPine (NORVASC) 5 MG PO DAILY 03/08/19 Strength: 2.5 MG TAB 2106 TOPIRAMATE (TOPAMAX) 100 MG PO DAILY 06/08/21 Strength: 100 MG TAB 1323 tiZANidine (ZANAFLEX) 4 MG PO 06/08/21 Strength: 4 MG TAB Q8H PRN PRN MUSCLE 1323 RELAXER ONDANSETRON (ZOFRAN) 8 MG PO 06/08/21 Strength: 8 MG TAB Q8H PRN PRN 1324 NAUSEA/VOMITING SUCRALFATE (CARAFATE) 1 GM PO BID 06/08/21 Strength: 1 GRAM TAB 1324 FLUoxetine (PROzac) 10 MG PO DAILY 06/08/21 Strength: 10 MG CAP 1324 hydrOXYzine HCL (ATARAX) 25 MG PO 06/08/21 Strength: 25 MG TAB TID PRN PRN 1325 ALLERGIES Current Hospital Medications: Anti-Infective Agents Sig/David Start time Last Medication Dose Route Stop Time Status Admin Cefazolin Sodium 2 GM Q8H 06/09 2200 AC 06/10 (KEFZOL OR ANCEF) IV 06/11 215 0453 Antihistamine Drugs Sig/David Start time Last Medication Dose Route Stop Time Status Admin Promethazine HCl 25 MG PACU ONCE PRN 06/09 1130 DC (PHENERGAN) IM 06/09 1923 Autonomic Drugs Sig/David Start time Last Medication Dose Route Stop Time Status Admin Nicotine 14 MG DAILY 06/10 0900 AC 06/10 (NICODERM) TRANSDERM 07/10 0859 0803 Tizanidine HCl 4 MG Q8HR 06/09 2200 AC 06/10 (ZANAFLEX) PO 07/09 2159 0454 Tizanidine HCl 4 MG Q8H PRN PRN 06/09 1615 DC (ZANAFLEX) PO 07/09 1614 Cardiovascular Drugs Sig/David Start time Last Medication Dose Route Stop Time Status Admin Amlodipine Besylate 5 MG DAILY 06/10 0900 AC (NORVASC) PO 07/10 0859 0803 Atorvastatin Calcium 20 MG BEDTIME 06/09 2100 A C 06/09 (LIPITOR) PO 07/09 Lidocaine HCl 0 .STK-MED ONE 06/09 1536 DC (LIDOCAINE HCL/PF) .ROUTE Lidocaine HCl 0 .STK-MED ONE 06/09 1455 DC (LIDOCAINE HCL/PF) .ROUTE Hydralazine HCl 2 MG PACU Q10MIN PRN PRN 06/09 1130 DC (APRESOLINE) IV 06/09 1923 Labetalol HCl 5 MG PACU Q10MIN PRN PRN 06/09 11 30 DC (LABETALOL HCL) IV 06/09 192 Central Nervous System Agents Sig/David Start time Last Medication Dose Route Stop Time Status Admin Morphine Sulfate 30 MG Q8HR 06/10 1400 AC (MS CONTIN) PO 06/15 1359 Fluoxetine HCl 10 MG DAILY 06/10 0900 AC 06/10 (PROzac) PO 07/10 0859 0803 Topiramate 100 MG DAILY 06/10 0900 AC 06/10 (TOPAMAX) PO 07/10 0859 0804 Gabapentin 600 MG TID 06/09 2100 AC 06/10 (NEURONTIN) PO 07/09 2059 0804 Morphine Sulfate 30 MG Q12HR 06/09 2100 DC 05/28 4 (MS CONTIN) PO 06/14 2059 0804 Zolpidem Tartrate 5 MG BEDTIME 06/09 2100 AC (AMBIEN) PO 07/09 Morphine Sulfate 4 MG Q4H PRN PRN 06/09 1700 AC 06/09 (morphine SULFATE) IV 06/14 1652000 Oxycodone HCl 10 MG Q4H PRN PRN 06/09 1700 AC 0 06/10 (ROXICODONE) PO 06/14 165 1211 Hydroxyzine HCl 25 MG TID PRN PRN 06/09 1615 AC (ATARAX) PO 07/09 1614 Fentanyl Citrate 0 .STK-MED ONE 06/09 1520 DC (SUBLIMAZE) .ROUTE Fentanyl Citrate 100 MCG PACU Q10MIN PRN PRN 1130 DC 06/09 (SUBLIMAZE) IV 06/09 1923 1535 Fentanyl Citrate 50 MCG PACU Q10MIN PRN PRN 1130 DC (SUBLIMAZE) IV 06/09 192 Hydrocodone Bitart/ 1 TAB PACU ONCE 06/09 1130 DC Acetaminophen PO 07/13 1923 (NORCO 5/325) Hydromorphone HCl 1 MG PACU Q10MIN PRN PRN 05/28 3 1130 DC 06/09 (DILAUDID) IV 06/09 192 1645 Hydromorphone HCl 0.5 MG PACU Q5MIN PRN PRN 1130 DC (DILAUDID) IV 06/09 192 Meperidine HCl 12.5 MG PACU ONCE PRN 06/09 1130 DC (DEMEROL 50MG/ML) IV 06/09 192 Morphine Sulfate 2 MG PACU Q10MIN PRN PRN 06/09 1130 DC 06/09 (morphine SULFATE) IV 06/09 192 1717 Tramadol HCl 50 MG PACU ONCE 06/09 1130 DC (ULTRAM) PO 06/09 192 Electrolytic, Caloric, And Eusebia Sig/David Start time Last Medication Dose Route Stop Time Status Admin Sodium Chloride 20 ML ASDIR 06/09 2200 AC 06/10 (SODIUM CHLORIDE) IV 06/11 2159 0453 Lactated Ringer's 1,000 ML .Q24H 06/09 1130 DC (LACTATED RINGERS) IV 06/09 192 Sodium Chloride 20 ML ASDIR 06/08 1445 AC 06/09 (SODIUM CHLORIDE) IV 07/08 1444 2330 Eye, Ear, Nose And Throat (Een Sig/David Start time Last Medication Dose Route Stop Time Status Admin Dexamethasone Sodium 0 .STK-MED ONE 06/09 1536 DC Phosphate .ROUTE (DECADRON) Gastrointestinal Drugs Sig/David Start time Last Medication Dose Route Stop Time Status Admin Pantoprazole 40 MG DAILY 06/10 0900 AC 06/10 (PROTONIX) PO 07/10 0859 0804 Ondansetron HCl 4 MG Q6H PRN PRN 06/09 2315 AC 06/09 (ZOFRAN) IV 07/09 2314 2331 Sucralfate 1 GM BID 06/09 2100 AC 06/10 (CARAFATE) PO 07/09 2059 0804 Ondansetron HCl 4 MG PACU ONCE PRN 06/09 1130 D C (ZOFRAN) IV 06/09 1923 Hormones And Synthetic Substit Sig/David Start time Last Medication Dose Route Stop Time Status Admin Insulin Human Lispro 0 PACU ONCE PRN 06/09 1130 DC (HUMALOG) SUBQ 06/09 1923 Local Anesthetics (Parenteral) Sig/David Start time Last Medication Dose Route Stop Time Status Admin Lidocaine 1 PATCH Q24H 06/09 1700 AC 06/09 (LIDODERM) TOPICAL 07/09 1659 2332 Bupivacaine HCl 0 .STK-MED ONE 06/09 1536 DC (MARCAINE 0.5%) .ROUTE Bupivacaine HCl 0 .STK-MED ONE 06/09 1455 DC (MARCAINE 0.5%) .ROUTE Ropivacaine 150 MG ASDIR PRN 06/09 1130 AC (NAROPIN 0.5% 150 MG/ LOCAL 07/09 1129 30mL) Allergies: Coded Allergies: latex (Severe, BLISTERS, RASH 06/08/21) iodine (Mild, TOPICAL IODINE-RASH/BLISTER ) Objective Physical Exam VS/I O: Last Documented: Result Date Time Pulse Ox 99 06/10 1234 B/P 108/69 06/10 1234 B/P Mean 82.0 06/10 1234 O2 Delivery Room air 06/10 1234 Temp 36.8 06/10 1234 Pulse 77 06/10 1234 Resp 16 06/10 1234 O2 Flow Rate 10 06/09 1559 24 hour I O ending at 0700: 06/10 0700 06/09 1900 Intake Total 960 Output Total Balance 960 Intake, Oral 960 Intake, Oral 0 Supplement Number 0 Bowel Movements Number Voids 2 PATIENT WEIGHT: Weight (lb): 118 Weight (oz): 6.21 Weight (kg): 53.700 General appearance: alert, awake, pleasant, no r espiratory distress Wound/Incision: Location: LUE Site condition: dressing clean dry, dressing in tact Head/eyes: atraumatic, normocephalic Neck: non-tender, no lymphadenopathy Cardiovascular: normal capillary refill, regular rate rhythm Respiratory: no distress, symmetric expansion Abdomen: soft, non-tender Genitourinary: deferred Extremities: moves all, no edema, decreased rang e of motion (LUE) Neuro/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 ASSEMBLER: alert, oriented X 3, normal speech Skin: dry, warm Psychiatry: normal affect, normal judgment/insig ht Results Findings/data: Laboratory Tests: 06/10 0446 Chemistry Sodium (134 - 147 mEq/L) 137 Potassium (3.4 - 5.0 mEq/L) 3.7 Chloride (100 - 108 mEq/L) 106 Carbon Dioxide (21 - 33 mEq/l) 27 Anion Gap (0 - 20) 8 BUN (7 - 18 mg/dL) 7 Creatinine (0.6 - 1.3 mg/dL) 0.7 Glomerular Filtr Rate (90 - 95) 86.6 L Glucose (70 - 110 mg/dL) 111 H Calcium (8.0 - 10.5 mg/dL) 9.0 Magnesium (1.80 - 2.40 mg/dL) 1.91 Hematology WBC (4.5 - 11.0 x10 3/uL) 14.4 H RBC (3.54 - 5.02 x10 6/uL) 3.96 Hgb (11.0 - 15.0 g/dL) 9.4 L Hct (33.0 - 45.0 %) 30.2 L MCV (81.0 - 99.0 fL) 76.3 L MCH (27.0 - 33.0 pg) 23.7 L MCHC (33.0 - 37.0 g/dL) 31.1 L RDW (11.5 - 14.5 %) 18.7 H Plt Count (150 - 400 x10 3/uL) 436 H MPV (7.0 - 9.0 fL) 9.9 H Neut % (Auto) (56.0 - 77.0 %) 72.0 Lymph % (Auto) (14.0 - 32.0 %) 17.4 [place] % (Auto) (4.8 - 9.0 %) 9.6 H Eos % (Auto) (0.3 - 3.7 %) 0.0 L Baso % (Auto) (0.0 - 2.0 %) 0.3 Neut # (Auto) (2.0 - 7.6 x10 3/uL) 10.35 H Lymph # (Auto) (1.0 - 3.8 x10 3/uL) 2.50 [place] # (Auto) (0.1 - 0.8 x10 3/uL) 1.38 H Eos # (Auto) (0.0 - 0.2 x10 3/uL) 0.00 Baso # (Auto) (0.0 - 0.2 x10 3/uL) 0.04 Abs Immat Gran (auto) (0.00 - 0.03 x10 3/uL) 0. 10 H Add Manual Diff NO Immature Gran % (0.0 - 2.0 %) 0.7 Nucleated RBC % (0 - 0 %) 0.0 Nucleated RBCs # (Man) (0.0 - 0.1 x10 3/uL) 0.0 0 Diagnosis, Assessment Plan Problem List/A P: 1. Status post osteotomy 2. 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 Von moore. 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 06/10: d/w patient/family pain plan and r ecommendations, she mentioned possibly going home today once cleared by surgery . She had nerve block but now starting to feel pain to LUE. D/w samira painting RN, started pain home meds, has active narcotic RX recently filled, will not require new Rx at d ischarge. Assessment/Plan: 1. Acute complex pain syndrome r/t surgical trau ma -Morphine 4mg q4hr PRN for pain 7-10 2nd line, breakthru pain -Oxycodone IR 10mg q4hr PRN for pain 7-10 -Tylenol 650mg q4hr PRN for pain 1-3 -Morphine ER 30mg q8hr (home dose) 2. Neuropathic pain -Neurontin 600mg TID (home dose) 3. Muscle spasm -Tizanidine 4mg q8hr (home dose) -start pain regimen as above -Monitor for S/E such as AMS , Lethargy/sedation, changes in respiratory function -Continue BP parameters -[facility]( Acute Pain services) will continue to foll ow -please call pain management for any pain-relate d concerns or questions Goal: Daily pain control to improve function and /or quality of life ([x]) Postop pain control ([x]) Pain control with PT/OT ([x]) Pain control until condition naturally res olves ([x]) Inpatient pain control ([x]) Improved sleep cycle ([x]) all narcotics medications will be adjusted according to the patient's medical condition during the hospital stay Alll diagnostic images/lab and medical records d pairshing the course of this admission as 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 [place] [employer]: 05/21/2021 2 05/21/2021 Oxyc odone Hcl 10 Mg Tablet 150.00 30 Mary Isra [id number] [facility] (0260) 0 75.00 MME Private Pay [place] 05/21/2021 2 05/21/2021 Morphine Sulf Er 30 Mg T ablet 90.00 30 Mary Isra [id number] [facility] (0260) 0 90.00 [place]ME Private [place] 05/21/2021 1 05/21/2021 Zolpidem Tartrate 5 Mg T ablet 30.00 30 Mary Isra [id number] [facility] (3551) 0 0.25 LME Comm Ins [place] 04/28/2021 4 03/24/2021 Zolpidem Tartrate 5 Mg T ablet 30.00 30 Mary Isra [id number] [facility] (3551) 1 0.25 LME Comm Ins [place] 04/28/2021 4 04/28/2021 Oxyc odone Hcl 10 Mg Tablet 120.00 30 Mary Isra [id number] [facility] (3551) 0 60.00 MME Comm Ins [place] 04/28/2021 4 04/28/2021 Morphine Sulf Er 30 Mg T ablet 60.00 30 Mary Isra [id number] [facility] (3551) 0 60.00 [place]ME Comm Ins [place] 04/28/2021 3 03/24/2021 Zolpidem Tartrat e 5 Mg Tablet 30.00 30 Mary Isra [id number] The (3551) 1 0.25 LME Comm Ins [place] 04/28/2021 3 04/28/2021 Oxyc odone Hcl 10 Mg Tablet 120.00 30 Mary Isra [id number] The (3551) 0 60.00 MME Comm Ins [place] 04/28/2021 3 04/28/2021 Morphine Sulf Er 30 Mg Tablet 60.00 30 Mary Isra [id number] The (3551) 0 60.00 MME Comm Ins [place] 03/31/2021 4 03/31/2021 Oxyc odone Hcl 10 Mg Tablet 120.00 30 Mary Isra [id number] The (3551) 0 60.00 MME Comm Ins [place] 03/31/2021 4 03/31/2021 Morphine Sulf Er 30 Mg T ablet 60.00 30 Mary Isra [id number] The (3551) 0 60.00 MME Comm Ins [place] 03/31/2021 3 03/31/2021 Oxyc odone Hcl 10 Mg Tablet 120.00 30 Mary Isra [id number] The (3551) 0 60.00 MME Comm Ins [place] 03/31/2021 3 03/31/2021 Morphine Sulf Er 30 Mg Tablet 60.00 30 Mary Isra [id number] The (3551) 0 60.00 MME Comm Ins [place] 03/30/2021 4 03/24/2021 Zolpidem Tartrate 5 Mg T ablet 30.00 30 Mary Isra [id number] The (3551) 0 0.25 LME Comm Ins [place] 03/30/2021 3 03/24/2021 Zolpidem Tartrat e 5 Mg Tablet 30.00 30 Mary Isra [id number] The (3551) 0 0.25 LME Comm Ins [place] Risk versus benefit of opiate medications: All r isk and benefit were reviewed with the patient and family members, risk not limited to respiratory depression, accidental overdose, risk of fall, altered menta l status, constipation, dependency, addiction, withdrawn, sudden . Plan discussed with: The pain plan of ca re has been discussed with the patient and the nursing staff. Patient is in agr eement with the following plan of care and wishes to proceed. Quest ions and concerns have been answered to the patient' s satisfaction. Patient has verbalized understan ding. Plan discussed with: patient, nurse at 1404 RPT #:[id number] END OF REPORT 2021-06-10 10:54:00-00:00 [facility] ([facility]) Pain Management Consult Note REPORT#:[id number] REPORT STATUS: Signed DATE:06/10/21 TIME: 1054 PATIENT: PRATIBHA JENNINGS UNIT #: [id number] ROOM/BED: [place] [address] : 63 AGE: 55 SEX: F ATTEND: Jasvir Patterson od, MD ADM AUTHOR: Navi Preston PACKAGING ASSOCIATE * ALL edits or amendments must be made on the PacerPro/computer document * Navi Preston 06/10/21 1054: History of Present Illness Primary Care Physician: Reji Patterson MD History of Present Illness HPI Requesting Clinician: Tha Luong NP Reason for consult: Pain management Chief complaint: Left arm pain HPI: This is a 55-year-old female with PMH of HTN, HL D, GERD, 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 Patient has chronic pain, c/o post-op pain. Pain management consulted. Pain history: Patient has history of chronic zachary n, had nerve block intraoperatively. Reports LUE pain, mild-moderat e throbbing achy pain, 6/10 intensity, no aggravating factors, relieved with rest and medications. Denies numbness or parethesia. Home medications: 1. Neurontin 600mg TID 2. TOpiramate 100mg daily 3. Morphine ER 30mg TID 4. Tizanidine 4mg q8hr PRN 5. Oxycodone IR 10mg q4hr PRN Review of Systems Constitutional: Denies: generalized weakness, lethargy. Respiratory: Denies: SOB. Cardiovascular: Denies: palpitations. GI: Denies: nausea, vomiting. Musculoskeletal: extremity pain (LUE), joint pain. Neuro: Denies: headache, numbness. History Past History Past Medical History: Reports: GERD/gastritis, Hypertension, Dyslipide gloria. Denies: Congestive heart failure, Coronary artery disease, Diabetes melli tus. Past surgical history: back/neck, knee, tonsille ctomy Past social history: no drug abuse, alcohol use, smoker Medications: Home Medications: Medication Dose/Rte/Freq Days Qty Entered Last Max Daily Dose Reviewed ZOLPIDEM (AMBIEN) 5 MG PO BEDTIME 06/09/2105/28 Strength: 5 MG TAB 2001 2001 GABAPENTIN (NEURONTIN) 600 MG PO TID 07/02/14 Strength: 600 MG TAB 1236 DEXLANSOPRAZOLE DR 60 MG PO DAILY 07/02/14 (DEXILANT) 1237 Strength: 60 MG CAP. LIDOCAINE (LIDODERM 5%) 07/02/14 Strength: 5 % PATCH 1239 oxyCODONE/APAP 1 TAB PO TID 07/02/14 06/09/21 (PERCOCET 10/325 MG) 1239 1650 Strength: 10 MG-325 MG TAB ATORVASTATIN (LIPITOR) 20 MG PO BEDTIME 9 Strength: 20 MG TAB 205 MORPHINE SULFATE 30 MG PO TID 03/08/19 06/09/21 (MORPHINE) 2106 1650 Strength: 15 MG TAB amLODIPine (NORVASC) 5 MG PO DAILY 03/08/19 Strength: 2.5 MG TAB 210 TOPIRAMATE (TOPAMAX) 100 MG PO DAILY 06/08/21 Strength: 100 MG TAB 1323 tiZANidine (ZANAFLEX) 4 MG PO 06/08/21 Strength: 4 MG TAB Q8H PRN PRN MUSCLE 1323 RELAXER ONDANSETRON (ZOFRAN) 8 MG PO 06/08/21 Strength: 8 MG TAB Q8H PRN PRN 1324 NAUSEA/VOMITING SUCRALFATE (CARAFATE) 1 GM PO BID 06/08/21 Strength: 1 GRAM TAB 1324 FLUoxetine (PROzac) 10 MG PO DAILY 06/08/21 Strength: 10 MG CAP 1324 hydrOXYzine HCL (ATARAX) 25 MG PO 06/08/21 Strength: 25 MG TAB TID PRN PRN 1325 ALLERGIES Current Hospital Medications: Anti-Infective Agents Sig/David Start time Last Medication Dose Route Stop Time Status Admin Cefazolin Sodium 2 GM Q8H 06/09 220 AC 06/10 (KEFZOL OR ANCEF) IV 06/11 2159 0453 Antihistamine Drugs Sig/David Start time Last Medication Dose Route Stop Time Status Admin Promethazine HCl 25 MG PACU ONCE PRN 06/09 1130 DC (PHENERGAN) IM 06/09 1923 Autonomic Drugs Sig/David Start time Last Medication Dose Route Stop Time Status Admin Nicotine 14 MG DAILY 06/10 0900 AC 06/10 (NICODERM) TRANSDERM 07/10 0859 0803 Tizanidine HCl 4 MG Q8HR 06/09 2200 AC 06/10 (ZANAFLEX) PO 07/09 2159 0454 Tizanidine HCl 4 MG Q8H PRN PRN 06/09 1615 DC (ZANAFLEX) PO 07/09 161 Cardiovascular Drugs Sig/David Start time Last Medication Dose Route Stop Time Status Admin Amlodipine Besylate 5 MG DAILY 06/10 0900 AC (NORVASC) PO 07/10 0859 0803 Atorvastatin Calcium 20 MG BEDTIME 06/09 2100 A C 06/09 (LIPITOR) PO 07/09 Lidocaine HCl 0 .STK-MED ONE 06/09 1536 DC (LIDOCAINE HCL/PF) .ROUTE Lidocaine HCl 0 .STK-MED ONE 06/09 1455 DC (LIDOCAINE HCL/PF) .ROUTE Hydralazine HCl 2 MG PACU Q10MIN PRN PRN 06/09 1130 DC (APRESOLINE) IV 06/09 192 Labetalol HCl 5 MG PACU Q10MIN PRN PRN 06/09 11 30 DC (LABETALOL HCL) IV 06/09 1923 Central Nervous System Agents Sig/David Start time Last Medication Dose Route Stop Time Status Admin Morphine Sulfate 30 MG Q8HR 06/10 1400 AC (MS CONTIN) PO 06/15 1359 Fluoxetine HCl 10 MG DAILY 06/10 0900 AC 06/10 (PROzac) PO 07/10 0859 0803 Topiramate 100 MG DAILY 06/10 0900 AC 06/10 (TOPAMAX) PO 07/10 0859 0804 Gabapentin 600 MG TID 06/09 2100 AC 06/10 (NEURONTIN) PO 07/09 2059 0804 Morphine Sulfate 30 MG Q12HR 06/09 2100 DC 05/28 4 (MS CONTIN) PO 06/14 205 0804 Zolpidem Tartrate 5 MG BEDTIME 06/09 2100 AC (AMBIEN) PO 07/09 Morphine Sulfate 4 MG Q4H PRN PRN 06/09 1700 A C 06/09 (morphine SULFATE) IV 06/14 Oxycodone HCl 10 MG Q4H PRN PRN 06/09 1700 AC 0 06/10 (ROXICODONE) PO 06/14 165 1211 Hydroxyzine HCl 25 MG TID PRN PRN 06/09 1615 AC (ATARAX) PO 07/09 1614 Fentanyl Citrate 0 .STK-MED ONE 06/09 1520 DC (SUBLIMAZE) .ROUTE Fentanyl Citrate 100 MCG PACU Q10MIN PRN PRN 1130 DC 06/09 (SUBLIMAZE) IV 06/09 1923 1535 Fentanyl Citrate 50 MCG PACU Q10MIN PRN PRN 1130 DC (SUBLIMAZE) IV 06/09 192 Hydrocodone Bitart/ 1 TAB PACU ONCE 06/09 1130 DC Acetaminophen PO 06/09 1923 (NORCO 5/325) Hydromorphone HCl 1 MG PACU Q10MIN PRN PRN 05/28 3 1130 DC 06/09 (DILAUDID) IV 06/09 1923 1645 Hydromorphone HCl 0.5 MG PACU Q5MIN PRN PRN 1130 DC (DILAUDID) IV 06/09 192 Meperidine HCl 12.5 MG PACU ONCE PRN 06/09 1130 DC (DEMEROL 50MG/ML) IV 06/09 192 Morphine Sulfate 2 MG PACU Q10MIN PRN PRN 06/09 1130 DC 06/09 (morphine SULFATE) IV 06/09 192 1717 Tramadol HCl 50 MG PACU ONCE 06/09 1130 DC (ULTRAM) PO 06/09 192 Electrolytic, Caloric, And Eusebia Sig/David Start time Last Medication Dose Route Stop Time Status Admin Sodium Chloride 20 ML ASDIR 06/09 2200 AC 05/28 4 (SODIUM CHLORIDE) IV 06/11 2159 0453 Lactated Ringer's 1,000 ML .Q24H 06/09 1130 DC (LACTATED RINGERS) IV 06/09 192 Sodium Chloride 20 ML ASDIR 06/08 1445 AC 06/09 (SODIUM CHLORIDE) IV 07/08 1444 2330 Eye, Ear, Nose And Throat (Een Sig/David Start time Last Medication Dose Route Stop Time Status Admin Dexamethasone Sodium 0 .STK-MED ONE 06/09 1536 DC Phosphate .ROUTE (DECADRON) Gastrointestinal Drugs Sig/David Start time Last Medication Dose Route Stop Time Status Admin Pantoprazole 40 MG DAILY 06/10 0900 AC 06/10 (PROTONIX) PO 07/10 0859 0804 Ondansetron HCl 4 MG Q6H PRN PRN 06/09 2315 AC 06/09 (ZOFRAN) IV 07/09 2314 2331 Sucralfate 1 GM BID 06/09 2100 AC 06/10 (CARAFATE) PO 07/09 2059 0804 Ondansetron HCl 4 MG PACU ONCE PRN 06/09 1130 D C (ZOFRAN) IV 06/09 1923 Hormones And Synthetic Substit Sig/David Start time Last Medication Dose Route Stop Time Status Admin Insulin Human Lispro 0 PACU ONCE PRN 06/09 1130 DC (HUMALOG) SUBQ 06/09 1923 Local Anesthetics (Parenteral) Sig/David Start time Last Medication Dose Route Stop Time Status Admin Lidocaine 1 PATCH Q24H 06/09 1700 AC 06/09 (LIDODERM) TOPICAL 07/09 1659 2332 Bupivacaine HCl 0 .STK-MED ONE 06/09 1536 DC (MARCAINE 0.5%) .ROUTE Bupivacaine HCl 0 .STK-MED ONE 06/09 1455 DC (MARCAINE 0.5%) .ROUTE Ropivacaine 150 MG ASDIR PRN 06/09 1130 AC (NAROPIN 0.5% 150 MG/ LOCAL 07/09 1129 30mL) Allergies: Coded Allergies: latex (Severe, BLISTERS, RASH 06/08/21) iodine (Mild, TOPICAL IODINE-RASH/BLISTER ) Objective Physical Exam VS/I O: Last Documented: Result Date Time Pulse Ox 99 06/10 1234 B/P 108/69 06/10 1234 B/P Mean 82.0 06/10 1234 O2 Delivery Room air 06/10 1234 Temp 36.8 06/10 1234 Pulse 77 06/10 1234 Resp 16 06/10 1234 O2 Flow Rate 10 06/09 1559 24 hour I O ending at 0700: 06/10 0700 06/09 1900 Intake Total 960 Output Total Balance 960 Intake, Oral 960 Intake, Oral 0 Supplement Number 0 Bowel Movements Number Voids 2 PATIENT WEIGHT: Weight (lb): 118 Weight (oz): 6.21 Weight (kg): 53.700 General appearance: alert, awake, pleasant, no r espiratory distress Wound/Incision: Location: LUE Site condition: dressing clean dry, dressing in tact Head/eyes: atraumatic, normocephalic Neck: non-tender, no lymphadenopathy Cardiovascular: normal capillary refill, regular rate rhythm Respiratory: no distress, symmetric expansion Abdomen: soft, non-tender Genitourinary: deferred Extremities: moves all, no edema, decreased rang e of motion (LUE) Neuro/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 ASSEMBLER: alert, oriented X 3, normal speech Skin: dry, warm Psychiatry: normal affect, normal judgment/insig ht Results Findings/data: Laboratory Tests: 06/10 0446 Chemistry Sodium (134 - 147 mEq/L) 137 Potassium (3.4 - 5.0 mEq/L) 3.7 Chloride (100 - 108 mEq/L) 106 Carbon Dioxide (21 - 33 mEq/l) 27 Anion Gap (0 - 20) 8 BUN (7 - 18 mg/dL) 7 Creatinine (0.6 - 1.3 mg/dL) 0.7 Glomerular Filtr Rate (90 - 95) 86.6 L Glucose (70 - 110 mg/dL) 111 H Calcium (8.0 - 10.5 mg/dL) 9.0 Magnesium (1.80 - 2.40 mg/dL) 1.91 Hematology WBC (4.5 - 11.0 x10 3/uL) 14.4 H RBC (3.54 - 5.02 x10 6/uL) 3.96 Hgb (11.0 - 15.0 g/dL) 9.4 L Hct (33.0 - 45.0 %) 30.2 L MCV (81.0 - 99.0 fL) 76.3 L MCH (27.0 - 33.0 pg) 23.7 L MCHC (33.0 - 37.0 g/dL) 31.1 L RDW (11.5 - 14.5 %) 18.7 H Plt Count (150 - 400 x10 3/uL) 436 H MPV (7.0 - 9.0 fL) 9.9 H Neut % (Auto) (56.0 - 77.0 %) 72.0 Lymph % (Auto) (14.0 - 32.0 %) 17.4 [place] % (Auto) (4.8 - 9.0 %) 9.6 H Eos % (Auto) (0.3 - 3.7 %) 0.0 L Baso % (Auto) (0.0 - 2.0 %) 0.3 Neut # (Auto) (2.0 - 7.6 x10 3/uL) 10.35 H Lymph # (Auto) (1.0 - 3.8 x10 3/uL) 2.50 [place] # (Auto) (0.1 - 0.8 x10 3/uL) 1.38 H Eos # (Auto) (0.0 - 0.2 x10 3/uL) 0.00 Baso # (Auto) (0.0 - 0.2 x10 3/uL) 0.04 Abs Immat Gran (auto) (0.00 - 0.03 x10 3/uL) 0. 10 H Add Manual Diff NO Immature Gran % (0.0 - 2.0 %) 0.7 Nucleated RBC % (0 - 0 %) 0.0 Nucleated RBCs # (Man) (0.0 - 0.1 x10 3/uL) 0.0 0 Diagnosis, Assessment Plan Problem List/A P: 1. Status post osteotomy 2. 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 Von moore. 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 06/10: d/w patient/family pain plan and r ecommendations, she mentioned possibly going home today once cleared by surgery . She had nerve block but now starting to feel pain to LUE. D/w samira painting RN, started pain home meds, has active narcotic RX recently filled, will not require new Rx at d ischarge. Assessment/Plan: 1. Acute complex pain syndrome r/t surgical trau ma -Morphine 4mg q4hr PRN for pain 7-10 2nd line, breakthru pain -Oxycodone IR 10mg q4hr PRN for pain 7-10 -Tylenol 650mg q4hr PRN for pain 1-3 -Morphine ER 30mg q8hr (home dose) 2. Neuropathic pain -Neurontin 600mg TID (home dose) 3. Muscle spasm -Tizanidine 4mg q8hr (home dose) -start pain regimen as above -Monitor for S/E such as AMS , Lethargy/sedation, changes in respiratory function -Continue BP parameters -APS( Acute Pain services) will continue to foll ow -please call pain management for any pain-relate d concerns or questions Goal: Daily pain control to improve function and /or quality of life ([x]) Postop pain control ([x]) Pain control with PT/OT ([x]) Pain control until condition naturally res olves ([x]) Inpatient pain control ([x]) Improved sleep cycle ([x]) all narcotics medications will be adjusted according to the patient's medical condition during the hospital stay Alll diagnostic images/lab and medical records d uring the course of this admission as 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 [place] BOXING INSTRUCTOR: 05/21/2021 2 05/21/2021 Oxyc odone Hcl 10 Mg Tablet 150.00 30 [facility] [id number] [facility] (0260) 0 75.00 [facility] Private [place] 05/21/2021 2 05/21/2021 Morphine Sulf Er 30 Mg T ablet 90.00 30 [facility] [id number] [facility] (0260) 0 90.00 [place] 05/21/2021 1 05/21/2021 Zolpidem Tartrate 5 Mg T ablet 30.00 30 Mary Isra [id number] [facility] (3551) 0 0.25 LME Comm Ins [place] 04/28/2021 4 03/24/2021 Zolpidem Tartrate 5 Mg T ablet 30.00 30 Mary Isra [id number] [facility] (3551) 1 0.25 [place] 04/28/2021 4 04/28/2021 Oxyc odone Hcl 10 Mg Tablet 120.00 30 Mary Isra [id number] [facility] (3551) 0 60.00 [place] 04/28/2021 4 04/28/2021 Morphine Sulf Er 30 Mg T ablet 60.00 30 Mary Isra [id number] [facility] (3551) 0 60.00 [place] 04/28/2021 3 03/24/2021 Zolpidem Tartrat e 5 Mg Tablet 30.00 30 Mary Isra [id number] The (3551) 1 0.25 LME [place] 04/28/2021 3 04/28/2021 Oxyc odone Hcl 10 Mg Tablet 120.00 30 Mary Isra [id number] [facility] (3551) 0 60.00 [place] 04/28/2021 3 04/28/2021 Morphine Sulf Er 30 Mg Tablet 60.00 30 Mary Isra [id number] The (3551) 0 60.00 [place] 03/31/2021 4 03/31/2021 Oxyc odone Hcl 10 Mg Tablet 120.00 30 Mary Isra [id number] The (3551) 0 60.00 [place]ME [place] 03/31/2021 4 03/31/2021 Morphine Sulf Er 30 Mg T ablet 60.00 30 Mary Isra [id number] The (3551) 0 60.00 [place] 03/31/2021 3 03/31/2021 Oxyc odone Hcl 10 Mg Tablet 120.00 30 Mary Isra [id number] The (3551) 0 60.00 [place]ME [place] 03/31/2021 3 03/31/2021 Morphine Sulf Er 30 Mg Tablet 60.00 30 Mary Isra [id number] The (3551) 0 60.00 [place] 03/30/2021 4 03/24/2021 Zolpidem Tartrate 5 Mg T ablet 30.00 30 Mary Isra [id number] The (3551) 0 0.25 LME Comm Ins [place] 03/30/2021 3 03/24/2021 Zolpidem Tartrat e 5 Mg Tablet 30.00 30 Mary Isra [id number] The (3551) 0 0.25 LME Comm Ins [place] Risk versus benefit of opiate medications: All r isk and benefit were reviewed with the patient and family members, risk not limited to respiratory depression, accidental overdose, risk of fall, altered menta l status, constipation, dependency, addiction, withdrawn, sudden . Plan discussed with: The pain plan of ca re has been discussed with the patient and the nursing staff. Patient is in agr eement with the following plan of care and wishes to proceed. Quest ions and concerns have been answered to the patient' s satisfaction. Patient has verbalized understan ding. Plan discussed with: patient, nurse Arik Washington 07/11/21 6221: Attestations Physician Attestation Agree w/findings plan: I attest that I have reviewe d the PACKAGING ASSOCIATE note and that the components of the history of present illness, physical exam, the assessment and plan documented and Agreed with the findings and plan as documented by Laure Preston NP at 1404 at 1756 [facility] #:[id number] END OF REPORT 2021-06-10 08:03:00-00:00 [id number] [place] [address] PATIENT NAME: PRATIBHA JENNINGS ADMIT DATE: 06/09 ACCOUNT NO: [id number] ROOM NO: G.414 AGE: 55 REPORT TYPE: SHORT STAY DISCHARGE SUMMARY SEX: F ADMITTING PHYSICIAN:Reji Patterson MD ATTENDING PHYSICIAN:Reji Patterson MD ADMISSION DATE: 06/09/2021 DISCHARGE DATE: CHIEF COMPLAINT: Left shoulder pain and arm pain , status post surgery. HISTORY OF PRESENT ILLNESS: This is a 55-year-ol d female with a past medical history of hypertension, hyp erlipidemia, GERD, came to the hospital for the left distal radius malunion and distal radial ulnar j oint instability. The patient failed outpatient treatment. She had a correctio n of the left distal radius malunion with iliac crest vadim ne grafting and ulnar shortening, osteotomy and left wrist hardware removal as well as FPL re pair yesterday. She was in severe pain initially, but now pain is well controll ed. She is currently awake, alert, and oriented x3, following commands. She den ies any nausea, vomiting, diarrhea, or constipation. ALLERGIES: IODINE AND LATEX. PAST MEDICAL HISTORY: Hypertension, hyperlipidem ia and GERD. PAST SURGICAL HISTORY: Knee surgery, spinal surg erika, and tonsillectomy. FAMILY HISTORY: Noncontributory to illness. SOCIAL HISTORY: Smokes 2 cigarettes a day. Occas ional alcohol. Denies any use of illicit drug. MEDICATIONS: Per MAR, reviewed and reconciled. REVIEW OF SYSTEMS: All 14-point systems reviewe d. Pertinent positives and negatives listed in HPI, otherwise negative. PHYSICAL EXAMINATION: GENERAL: The patient is awake, alert, and orient ed x3, following commands. VITAL SIGNS: Blood pressure is 116/72, pulse is 80, temperature is 36.7, oxygen saturation 97% on room air, and respiratory rate is 18. HEENT: Normocephalic, atraumatic. NECK: Supple. CARDIOVASCULAR: Regular rhythm. S1 and S2 presen t. RESPIRATORY: The patient is on room air. No sign s of wheezing or crackle. GASTROINTESTINAL: Abdomen is soft and nontender. Bowel sounds are present. GENITOURINARY: No signs of hematuria. MUSCULOSKELETAL: No signs of clubbing or cyanosi s. ENDOCRINE: Stable. PATIENT NAME: PRATIBHA JENNINGS [id number] PSYCHIATRIC: Stable. LABORATORY DATA AND DIAGNOSTIC STUDIES: WBC 14.4 , RBC 3.96, hemoglobin 9.4, hematocrit 30.2, platelets 436. Chemistry; sodiu m is 137, potassium 3.7, chloride 106, carbon dioxide 27, anion gap is 8, BUN is 7, creatinine 0.7, glucose is 110, calcium is 9.0, magnesium is 1.9 1. IMAGING STUDIES: Chest x-ray is negative for acu te abnormality. ASSESSMENT: 1. 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 2. Left shoulder pain and arm pain, status post surgery, improved. 3. History of hypertension. 4. History of hyperlipidemia. 5. Gastroesophageal reflux disease. PLAN: 1. Admit to the floor. 2. The patient will go home today once cleared b y surgery. 3. Continue pain medication. 4. Antiemetics. 5. Follow labs and replace as needed. 6. SCD for DVT prophylaxis. 7. Continue home medication. 8. Monitor. After assessment, we discussed the plan with the patient. Dictated By: Tha Luong NP for Reji Patterson MD WT: SSS:GPROSPER/LEVY/CRISTOBAL Conf#: [id number]/DID#: [id number] Authenticated by Reji Patterson MD On 06/10 09:01:19 PM Authenticated by Tha Luong On 06/11/2021 06: 57:35 AM at 0657 Electronically Signed by Tha Luong NP on at 0657 PATIENT NAME: PRATIBHA JENNINGS [id number] 2021-06-10 08:00:00-00:[address] [facility] Clinical Note REPORT#:[id number] REPORT STATUS: Signed DATE:06/10/21 TIME: 08 PATIENT: PRATIBHA JENNINGS UNIT #: [id number] ROOM/BED: [place] [address] : 64 AGE: 55 SEX: F ATTEND: Jasvir Patterson od, MD ADM AUTHOR: Tha Luong PACKAGING ASSOCIATE * ALL edits or amendments must be made on the el ectronic/computer document * Clinical Note Note: SS # H P and DC summary # [id number] Electronically Signed by Tha Luong NP on at 0804 RPT #:[id number] END OF REPORT 2021-06-10 08:00:00-00:[address] [facility] ([facility]) Clinical Note REPORT#:[id number] REPORT STATUS: Signed DATE:06/10/21 TIME: 08 PATIENT: PRATIBHA JENNINGS UNIT #: [id number] ROOM/BED: [place] [address] : 64 AGE: 55 SEX: F ATTEND: Jasvir Patterson od, MD ADM AUTHOR: Tha Luong NP * ALL edits or amendments must be made on the el ectronic/computer document * Tha Luong 06/10/21 0800: Clinical Note Note: SS # H P and DC summary # [id number] Reji Patterson 06/10/212046: Clinical Note Note: The History Physical was reviewed, the p atient was examined, and no change has occurred in the patient's condition since Histor y Physical was completed. Electronically Signed by Tha Luong NP on at 0804 RPT #:[id number] END OF REPORT 2021-06-10 08:00[facility]00-00:00 [facility] REPORT#:[id number] REPORT STATUS: Signed DATE:06/10/21 TIME: 799 PATIENT: PRATIBHA JENNINGS UNIT #: [id number] ROOM/BED: [place] [address] : 63 AGE: 55 SEX: F ATTEND: Miatli Patterson MD ADM AUTHOR: Tha Luong NP * ALL edits or amendments must be made on the PacerPro/DDStocks document * Tha Luong 06/10/21 0800: Clinical Note Note: SS # H P and DC summary # [id number] Reji Patterson 06/10/212046: Clinical Note Note: The History Physical was reviewed, the p atient was examined, and no change has occurred in the patient's condition since Histor y Physical was completed. Electronically Signed by Tha Luong NP on at 0804 RPT #:[id number] END OF REPORT 2021-06-10 08:00:00-00:00 [facility] ([facility]) Clinical Note REPORT#:[id number] REPORT STATUS: Signed DATE:06/10/21 TIME: 799 PATIENT: PRATIBHA JENNINGS UNIT #: [id number] ROOM/BED: [place] [address] : 63 AGE: 55 SEX: F ATTEND: Jasvir Patterson od, MD ADM AUTHOR: Tha Luong NP * ALL edits or amendments must be made on the PacerPro/DDStocks document * Tha Luong 06/10/21 0800: Clinical Note Note: SS # H P and DC summary # [id number] Reji Patterson 06/10/212046: Clinical Note Note: The History Physical was reviewed, the p atient was examined, and no change has occurred in the patient's condition since Histor y Physical was completed. Electronically Signed by Tha Luong PACKAGING ASSOCIATE on at 0804 Electronically Signed by Reji Patterson MD on 0 06/10/21 at 2100 [facility] #:[id number] END OF REPORT 2021-06-09 16:36:00-00:00 [id number] [place] [address] PATIENT NAME: PRATIBHA JENNINGS ADMIT DATE: 06/09 ACCOUNT NO: [id number] ROOM NO: [facility] AGE: 55 REPORT TYPE: OPERATIVE REPORT SEX: F ADMITTING PHYSICIAN:Reji Patterson MD ATTENDING PHYSICIAN:Reji Patterson MD OPERATION DATE: 06/09/2021 ATTENDING PHYSICIAN: Beverly Cartagena MD PREPROCEDURAL DIAGNOSIS: Left distal radius oumou nion and distal radial ulnar joint instability. POSTPROCEDURAL DIAGNOSES: Left distal radius mal union and distal radial ulnar joint instability, flexor pollicis longus ruptur e. PROCEDURE PERFORMED: Left distal radius malunion correction with iliac crest bone grafting, left ulnar shortening osteotomy, left open TFCC repair, left wrist hardware removal, left FPL repair, zone 5. SURGEON: Beverly Cartagena MD EVENT SET UP SPECIALIST: None. ANESTHESIA: General. COMPLICATIONS: None. SPECIMENS: None. ESTIMATED BLOOD LOSS: Minimal. INDICATIONS FOR PROCEDURE: Pratibha Jennings is a [age]-year-old female, who sustained a left distal radius fracture approxim ately 3 years ago that was treated operatively. This was treated with a vol ar plate; however, she had continued dorsal angulation of approximately 24 degrees and had DRUJ instability with a very severely painful wrist. She was foun d to have DRUJ instability on clinical examination and a CT scan performed als o demonstrated that the ulnar head was dislocated volarly while in supination. She desired operative intervention. Treatment options were discussed a t length with the patient including nonoperative optio ns of bracing, therapy, WristWidget versus surgical treatment options. After exhaustion of nonoperat elian treatment options, she elected to proceed with surgery. Benefits and ri sks of surgery were discussed with the patient including bleeding, infection, damage to neurovascular structures, need for additional surgery, persistent pain, stiffness, nonunion, malunion, need for additiona l surgery, tendon rupture, possible loss of life or limb, knowing these, she maureen cted to proceed with surgery. The patient was noted to be smoking approximately 6 weeks ago and was asked to quit smoking and confirmed that she has not h ad any tobacco use in over 4 weeks at this time and PATIENT NAME: PRATIBHA JENNINGS [id number] felt that this was then appr opriate to proceed with surgery. Discussed with the patient at length that plan will be to perform a distal radius malunion correction and then assess her DRUJ stability an d if needed, perform a TFCC repair and ulnar shortening osteotomy if she continued to have DRUJ instability with concern for ulnar positive variance. PROCEDURE IN DETAIL: The patient was identified in the preoperative holding area where the above-noted site was marked. She was then transported to the operating room where the above noted anesthesia was induced. She was placed supine on the table with left upper extremity at the hand table. Left upper extremity, as well as the left hemipelvis were t hen prepped and draped in the usual sterile fashion. Preprocedural timeout was called and all were in agreement and we began. Preoperative antibiotics were dosed. The left upper extremity was then exsanguin ated with the Esmarch bandage and the tourniquet was raised to 250 mmHg. We first began by pe rforming an extended FCR approach over the wrist using her previous incision. W e carefully dissected through skin and subcutaneous tissues, taking care to achieve car eful hemostasis. There was noted to be a moderate amount of tenosynovium an d a tenosynovectomy was also performed. Examination of the flexor tendons not ed that the FDP and the FDS tendons were all noted to be intact; however, wi th a moderate amount of tenosynovium, which was excised. The FPL tendon was noted to be ruptured right on top of the prominent plate. There was noted t o be a very small strand of pseudotendon that was connec ting the two tendons in place so that they were not retracted; however, the tendons were noted to be ruptured. The tenosynovium around the tendons were debrided. The te ndon was then debrided down to healthy tissue. At this point, I did not feel that the t endons were significantly retracted and felt that this was appropriate for primary repair. This was planned to be done after osteotomy. We then proc eeded to perform a hardware removal. We carefully identified the plate, whic h was noted to be quite prominent and was taken off the bone and this wa s then removed without difficulty. The brachioradialis was then identif ied along the radial side, was carefully dissected out from the fir st dorsal compartment tendons and then identified and transected. We then proceeded to select our plate placement for the Acumed plate. We selected the Acumed dis iqra plate and placed this on the volar surface of the radius. We then inserte d our K-wires, which were parallel to the joint line. We obtained multipla phylicia fluoroscopic films to demonstrate that we had good position of the yudith te, as well as with our K- wires parallel to the joint line, which would be parallel to the site of our planned osteotomy. We then proceeded to place mu ltiple points of nonlocking fixation to help fix the plate down to bone. At this point, we then again evaluated under multiplanar fluoroscopy and were satisfied with the plate position. We then removed the screws and the yudith te with K-wires in place. We then placed multiple guidewires parallel to our previous K-wires at the level of the planned osteotomy. We planned for this t o be performed just proximal to the DRUJ. A sagittal saw was used to perform an osteotomy parallel to the joint line using our K-wires as a guide and cassidy oksana in the coronal plane. We then used the saw to cut through the volar wasserman rface and an osteotome to finish the remainder of the dorsal surface. We t hen, once this was performed, pronated the radial shaft out of the way and performed a dorsal release of any callus on the back side. We then turned our attention to plate placement again. Once this was performed, we then placed the plate back over the K-wires a nd then fixed our previous screws distally with screws and nonlocking fixat ion that were eventually switched out to locking screws of appropriate le ngth. We then used a lobster PATIENT NAME: PRATIBHA JENNINGS [id number] claw to clamp down the plate to the shaft proxim ally until we had the desired correction. We ensured that we had adequate radi al translation as well. At this point, we were then satisfied with the posi tion of the plate, as well as the correction, which was noted to then have corrected the wrist into neutral. At this point, we were then satisfied with the c orrect tilt and the radial inclination of the wrist. We then proceeded to p lace multiple points of nonlocking fixation approximately to help secure the plate down to bone. We then proceeded to place our radial styloid mender knit goods distally with a locking screw. Of note, we were unable to fill t he remainder of the screw holes due to the direction of screws into the osteotomy site. At this point, we were then satisfied with the fixation. We then turned our attention to the iliac crest bone grafting for the defect. Approximately, a 2 cm incision was then made centered just 2 cm posterior to the anterior sup erior iliac spine. We incised through skin and subcutaneous tissues, taking ca re to achieve careful hemostasis. The fascia over the tensor and abdom inal musculature was then incised and a periosteal elevator was then perfo rmed to perform a subperiosteal dissection. Hohmann retractors wer e then placed. We then placed the starting awl for the bone graft punch and ma tal a starting hole at the desired point. We then proceeded to drill the tr ephine into the bone slowly and taking care to stay within the bone. We then performed an additional pass to obtain more bone graft. Once this was done, w e were satisfied with the graft, we then removed this and then packed thro mbin-soaked Gelfoam into the site. Before this wound was copiously irrigated and the wound was then closed in layered fashion using 0 Vicryl and 3-0 Vicryl s and christen. We then turned our attention back to the wrist. The iliac crest bone graft was then placed into the defect and then carefully impacted in w ith a combination of cancellous allograft chips as well. At t his point, we were then satisfied with the fixation of the distal radius. We evaluated her wrist in neutral, which was noted to be somewhat lax and still had insta bility over her ulnar head in supination with the ulnar head translating volar ly in supination. At this point, we then evaluated the wrist under multipl anastasiya fluoroscopy again. She was noted to be approximately 3 mm ulnar positiv e and I felt that this would best be addressed with an ulnar shortening osteo helen and likely TFCC repair. 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 At this point, the volar wrist wound was then copiously irrigated. We turned our atte ntion to FPL repair. A 3- 0 FiberWire was used in a modified Boateng fashion at the level of zone 5 flexor tendon repair. It was then performed with augmen tation with a 5- 0 Prolene epitendinous suture. This obtained good approxim ation of the tendon edges. At this point, we were then satisfied with the FPL repair. The skin was then closed with 4-0 Prolene sutures. We then turned our attention to the ulnar shortening osteotomy. Approximately 6 cm incisio n was then made along the subcutaneous border of the ulna. We incised thro ugh skin and subcutaneous tissue, taking care to achieve careful hemostasi s. The volar surface of the ulna was then exposed and the plate for the Acum ed ulnar shortening osteotomy was then placed. We then held this in place with a lobster claw and then verified plate placement on multiplanar fluorosc opy. We then proceeded to drill multiple points of fixation distally follo wed by proximally. The guide was then placed for the ulnar shortening osteoto my and then a wafer approximately 3 mm was then removed. We used the sagittal saw to remove this piece of bone and careful irrigation was perform ed to prevent any thermal necrosis throughout. The wafer was then removed and then the compressive tool PATIENT NAME: PRATIBHA JENNINGS [id number] was then used to help clamp down the osteotomy site. This was then aided with the use of a lobster claw. There was noted to be some slight overriding of the osteot manisha site and this was then corrected and multiple points of fixatio n were then placed proximally followed by the lag screw. At this point, we then obtaine d multiplanar fluoroscopic films and then were satisfied with the p osition of the ulnar plate, as well as the osteotomy. We then turned our attention machoi n evaluating the DRUJ. Again, the DRUJ was noted to be jesse ewhat increased in stability, but was still noted to be unstable in supination. At this point, I felt that a TFCC repair was indicated. The distal ulnar incision was then ex tended in a hockey stick fashion just over the dorsal ulnar aspect of the wrist. We incised through skin and subcutaneous tissues, taking care to achieve careful hemostasis. Branches of the dorsal sensory nerve were protect ed throughout. The dissection was then carried down to the confluen ce of the ECU and the FCU and then a full-thickness flap of the extensor retinac ulum was then raised to act as a sling later for the ECU. Once this was performed, we then placed in traction onto the ring finger and the small finger and accessed the ulnar carp al joint. The distal pole of the ulna was then palpated and a T-shaped capsul otomy was made just distal to this. We then proceeded to identify the ulnar styloid fragment, which was then excised subperiosteally. After this, we then bobby luated the TFCC components, which were noted to be retracted without any att achment to the fovea. At this point, we then evaluated the fovea under multipl anastasiya fluoroscopy and then planned to place a suture anchor. The K-wire for the suture anchor was then placed into the fovea and po sition was verified on fluoroscopy. We then removed the K-wire then planned to place a 2.5 mm titani um anchor. Once the titanium anchor was inserted, malleted appropriately, the anchor pulled out. At this point, we did not have any further incre ase in size in anchor, then elected to repair the TFCC using bone tunnels. The 3-0 FiberWire sutures were then passed through the TFCC and then placed through bone tu nnels along the periphery. These sutures were then set aside to later tie. I then selected two 0.062 K-wires and holding the fore arm in neutral rotation, inserted the K-wires along the ulnar border of the ulna and into the radius obtaining a quadricortical fixation. At this point, once the forearm rotati on was then locked down, the sutures through the TFCC repair were the n carefully tied down. These were then cut short. The wound was then closed in a layere d fashion using 3-0 Vicryl. The extensor retinacular fla p was then used to wrap around the ECU tendon intact as a sling and this was repaired using 3 -0 FiberWire. At this point, the wound was copiously irrigated agai n. The skin was then closed with 3-0 Vicryl sutures and 3-0 Prolene sutures. Soft sterile dressing w as then placed followed by a long arm splint with a dorsal blocking splint as well for the thumb. The tourniquet was let down. The fingers pinked up r eadily. Of note, the tourniquet was let down duri ng the procedure and then reinflated after a period of over 15 minutes of reperfusion. The p atient was then awoken from anesthesia and taken to PACU in stable condition. POSTOPERATIVE PLAN: The patient will be admitted overnight for all this. We will see her back in clinic in 10 to 14 days. We will plan for a change and transition to a long-arm spl int with a dorsal blocking splint for her thumb and will have her start range of motion of her thumb . Plan to pull the pins in approximately 6 weeks. Dictated By: Beverly Cartagena MD PATIENT NAME: PRATIBHA JENNINGSH [id number] WT: OP:CICI/KRISTEN/CRISTOBAL Conf#: [id number]/DID#: [id number] Authenticated and Edited by Beverly Cartagena MD On 08/06/21 9:15:10 PM at 0917 PATIENT NAME: PRATIBHA JENNINGS [id number] 1463-07-12 11:34:00-00:00 [id number] [place] [address] PATIENT NAME: PRATIBHA JENNINGS ADMIT DATE: ACCOUNT NO: [id number] ROOM NO: AGE: 55 REPORT TYPE: eELECTROCARDIOGRAM REPORT SEX: F ADMITTING PHYSICIAN: ATTENDING PHYSICIAN:Beverly Cartagena MD Order: [id number] Test Reason : PRE OP Test Date/Time Stamp: TueJun 08 2021 11:34:49 Blood Pressure : / mmHG Vent. Rate : 086 BPM Atrial Rate : 086 BPM P-R Int : 132 ms QRS Dur : 074 ms QT Int : 366 ms P-R-T Axes : 061 068 062 degree s QTc Int : 437 ms Normal sinus rhythm Minimal voltage criteria for LVH, may be normal variant Borderline ECG When compared with ECG of 08-MAR-2019 16:52, Significant changes have occurred Confirmed by VALERIE ROBLES MD ([id number]) on 06/08/20 3:15:06 PM Referred By: Beverly Cartagena Confirmed by:VALERIE DAILEY MD at 1515 PATIENT NAME: PRATIBHA JENNINGS [id number] 11:31:00-00:00 [facility] ([facility]) Discharge Summary REPORT#:[id number] REPORT STATUS: Signed DATE:03/09/19 TIME:1131 PATIENT: PRATIBHA JENNINGS UNIT #: [id number] ROOM/BED: [place] [address] : 64 AGE: 53 SEX: F ATTEND: Armen Orta MD ADM AUTHOR: Bryan Orta MD * ALL edits or amendments must be made on the el [employer]/computer document * PCP PCP Discharge to: home General Information Date of admission: Observation Start Date: 03/08/19 Date of admission: 03/08/19 Date of discharge: 03/09/19 Admission diagnosis: weight loss Discharge diagnosis: 1. Unintentional weight loss 2. Hx of essential hypertension 3. Chronic pain syndrome and narcotic use 4. Dizziness most likely sec ondary to being on multiple meds including narcotics , muscle relaxants She received fluids, will obtain a CT abdomen an d pelvis, if negative patient will be discharged home. We will hold patient's muscle relaxants. Patient needs to see a pain specialist as an outpatient to adjust her pain medicines, outpatient follow-up with Dr. Joe Hospital course: 1. Unintentional weight loss 2. Hx of essential hypertension 3. Chronic pain syndrome and narcotic use 4. Dizziness most likely sec ondary to being on multiple meds including narcotics , muscle relaxants She received fluids, will obtain a CT abdomen an d pelvis, if negative patient will be discharged home. We will hold patient's muscle relaxants. Patient needs to see a pain specialist as an outpatient to adjust her pain medicines, outpatient follow-up with Dr. Joe Pt. condition on discharge: improved, stable Med Rec Med Rec Discharge meds: Stop taking the following medications: tiZANidine (ZANAFLEX) 4 MG TAB ORAL THREE TIMES A DAY. Continue taking these medications: GABAPENTIN (NEURONTIN) 600 MG TAB 600 MILLIGRAM ORAL THREE TIMES A DAY. DEXLANSOPRAZOLE DR (DEXILANT) 60 MG CAP.MP 60 MILLIGRAM ORAL DAILY. FERROUS SULFATE (FEOSOL) 325 MG TAB 325 MILLIGRAM ORAL TWICE DAILY. MELOXICAM (MOBIC) 15 MG TAB 15 MILLIGRAM ORAL DAILY. ZOLPIDEM (AMBIEN) 5 MG TAB 5 MILLIGRAM ORAL AT BEDTIME NEEDED. as neede d for INSOMNIA LIDOCAINE (LIDODERM 5%) 1 EA PATCH 3 PATCH TRANSDERMAL DAILY. oxyCODONE/APAP (PERCOCET 10/325 MG) 1 TAB TAB 1 TABLET ORAL EVERY 6 HOURS WHILE AWAKE. Instructions: 0600, 1200, AND 1800 ATORVASTATIN (LIPITOR) 20 MG TAB 20 MILLIGRAM ORAL BEDTIME. MORPHINE SULFATE (MORPHINE) 15 MG TAB 15 MILLIGRAM ORAL EVERY 12 HOURS. amLODIPine (NORVASC) 2.5 MG TAB 2.5 MILLIGRAM ORAL DAILY. Discharge Instructions Diet: cardiac Activity: as tolerated Notify provider of these s/s: Follow up with Dr Joe in 1 week Prescriptions: none Discharge management: greater than 30 mins Objective VS/I O Last Documented: Result Date Time Pulse Ox 96 03/09 0740 B/P 157/95 03/09 0740 B/P Mean 115.6 03/09 0740 O2 Delivery Room air 03/09 0740 Temp 98.2 03/09 0740 Pulse 71 03/09 0740 Resp 14 03/09 0740 FiO2 96 03/08 2156 24 hour I O ending at 0700: 03/09 0700 03/08 1900 Intake Total Output Total Balance Patient 90 lb 12.65 oz Weight Weight Stated/Reported Measurement Method General appearance: alert ENT: normal nose Cardiovascular: regular rate rhythm Respiratory: clear to auscultation GI: soft Extremities: moves all Electronically Signed by Bryan Orta MD on 0 03/09/19 at 1134 RPT #: [id number] END OF REPORT 2019-03-09 11:31:00-00:00 [facility] ([facility]) Discharge Summary REPORT#:[id number] REPORT STATUS: Signed DATE:03/09/19 TIME:1131 PATIENT: PRATIBHA JENNINGS UNIT #: [id number] [address] : [birth year] AGE: 53 SEX: F ATTEND: Armen Orta MD ADM AUTHOR: Bryan Orta MD * ALL edits or amendments must be made on the [employer] document * See Addendum PCP PCP Discharge to: home General Information Date of admission: Observation Start Date: 03/08/19 Date of admission: 03/08/19 Date of discharge: 03/09/19 Admission diagnosis: weight loss Discharge diagnosis: 1. Unintentional weight loss 2. Hx of essential hypertension 3. Chronic pain syndrome and narcotic use 4. Dizziness most likely sec ondary to being on multiple meds including narcotics , muscle relaxants She received fluids, will obtain a CT abdomen an d pelvis, if negative patient will be discharged home. We will hold patient's muscle relaxants. Patient needs to see a pain specialist as an outpatient to adjust her pain medicines, outpatient follow-up with Dr. Joe Hospital course: 1. Unintentional weight loss 2. Hx of essential hypertension 3. Chronic pain syndrome and narcotic use 4. Dizziness most likely sec ondary to being on multiple meds including narcotics , muscle relaxants She received fluids, will obtain a CT abdomen an d pelvis, if negative patient will be discharged home. We will hold patient's muscle relaxants. Patient needs to see a pain specialist as an outpatient to adjust her pain medicines, outpatient follow-up with Dr. Joe Pt. condition on discharge: improved, stable Med Rec Med Rec Discharge meds: Stop taking the following medications: tiZANidine (ZANAFLEX) 4 MG TAB ORAL THREE TIMES A DAY. Continue taking these medications: GABAPENTIN (NEURONTIN) 600 MG TAB 600 MILLIGRAM ORAL THREE TIMES A DAY. DEXLANSOPRAZOLE DR (DEXILANT) 60 MG CAP.MP 60 MILLIGRAM ORAL DAILY. FERROUS SULFATE (FEOSOL) 325 MG TAB 325 MILLIGRAM ORAL TWICE DAILY. MELOXICAM (MOBIC) 15 MG TAB 15 MILLIGRAM ORAL DAILY. ZOLPIDEM (AMBIEN) 5 MG TAB 5 MILLIGRAM ORAL AT BEDTIME NEEDED. as neede d for INSOMNIA LIDOCAINE (LIDODERM 5%) 1 EA PATCH 3 PATCH TRANSDERMAL DAILY. oxyCODONE/APAP (PERCOCET 10/325 MG) 1 TAB TAB 1 TABLET ORAL EVERY 6 HOURS WHILE AWAKE. Instructions: 0600, 1200, AND 1800 ATORVASTATIN (LIPITOR) 20 MG TAB 20 MILLIGRAM ORAL BEDTIME. MORPHINE SULFATE (MORPHINE) 15 MG TAB 15 MILLIGRAM ORAL EVERY 12 HOURS. amLODIPine (NORVASC) 2.5 MG TAB 2.5 MILLIGRAM ORAL DAILY. Discharge Instructions Diet: cardiac Activity: as tolerated Notify provider of these s/s: Follow up with Dr Joe in 1 week Prescriptions: none Discharge management: greater than 30 mins Objective VS/I O Last Documented: Result Date Time Pulse Ox 96 03/09 0740 B/P 157/95 03/09 0740 B/P Mean 115.6 03/09 0740 O2 Delivery Room air 03/09 0740 Temp 98.2 03/09 0740 Pulse 71 03/09 0740 Resp 14 03/09 0740 FiO2 96 03/08 2156 24 hour I O ending at 0700: 03/09 0700 03/08 1900 Intake Total Output Total Balance Patient 90 lb 12.65 oz Weight Weight Stated/Reported Measurement Method General appearance: alert ENT: normal nose Cardiovascular: regular rate rhythm Respiratory: clear to auscultation GI: soft Extremities: moves all Electronically Signed by Bryan Orta MD on 0 03/09/19 at 1134 Addendum 1: 03/09/19 1345 by Bryan Orta MD severe protein calorie malnutrition Electronically Signed by Bryan Orta MD on 0 03/09/19 at 1345 RPT #: [id number] END OF REPORT 2019-03-08 20:58:00-00:00 [facility] ([facility]) Hospitalist History Physical REPORT#:[id number] REPORT STATUS: Signed DATE:03/08/19 TIME:2057 PATIENT: PRATIBHA JENNINGS UNIT #: [id number] ROOM/BED: [facility] : 64 AGE: 53 SEX: F ATTEND: Armen Orta MD ADM AUTHOR: Ami Hairston * ALL edits or amendments must be made on the el [employer]/computer document * History of Present Illness HPI Chief complaint: unintentional weight loss Free Text HPI Notes Free Text HPI Notes: 53 y/o female with PMHx of H TN, HLD, chronic pain was referred from GI Dr. Joe for evaluation of unintentional weight l oss. Pt states that she has lost 40lbs in the past 4 months. Has had decreased appetite and PO intake, occasional nausea and dizziness. Denies any abdominal pain, vomiting or diarrhea. No cough. No fevers/chills. States she had a normal colono scopy last year. History Past medical history: Reports: Hypertension. Denies: Congestive heart failure, Coronary artery disease, Diabetes mellitus. Smoking status for patients 13 years old or olde r: Current every day smoker Medication/Allergy-Vaccine Hx Allergies: Coded Allergies: iodine (Mild, TOPICAL IODINE-RASH/BLISTER ) Review of Systems Constitutional: Reports: generalized weakness, recent wt loss. D enies: chills, fever. Skin: Denies: bruising, rash. Eyes: Denies: redness, eye pain. ENT: Denies: nasal congestion, sore throat. Respiratory: Denies: productive cough (sputum), SOB, wheezing . Cardiovascular: Denies: chest pain, palpitations. GI: Reports: nausea. Denies: abdominal pain, diarrhe a, vomiting. : Denies: dysuria, flank pain, hematuria. Musculoskeletal: Denies: extremity pain, extremity swelling. Neuro: Denies: dizziness, headache, syncope. Objective General VS/I O: Vital Signs: Date Time Temp Pulse Resp B/P B/P Pulse O2 O2 F low FiO2 Mean Ox Delivery Rate 03/09 0147 71 143/83 103 03/08 2323 37.4 71 18 168/91 116.8 98 03/08 2156 36.7 76 18 115/69 84 96 Room air 96 03/08 2000 36.7 70 18 132/72 92 100 Room air 03/08 1820 36.7 78 18 130/78 95 100 Room air 03/08 1610 36.7 73 18 142/75 97 99 Room air 24 hour I O ending at 0700: 03/09 0700 03/08 1900 Intake Total Output Total Balance Patient 41.182 kg Weight Weight Stated/Reported Measurement Method Physical Exam General appearance: underweight, alert, awake, o riented, no acute distress, pleasant, conversational, thin female Head/Eyes: atraumatic, normocephalic ENT: moist mucosal membranes, normal pharynx Neck: supple/no meningismus, no JVD Cardiovascular: normal heart sounds, regular rat e rhythm Respiratory: clear to auscultation, symmetric ex pansion, no distress Abdomen: non-tender, soft, no distention Extremities: moves all, no edema Neuro/MARKER ASSEMBLER: alert, oriented X 3, normal speech Results Findings/Data: Laboratory Tests 03/08 1655 Chemistry Sodium (134 - 147 mmol/L) 133 L Potassium (3.4 - 5.0 mmol/L) 3.7 Chloride (100 - 108 mmol/L) 107 Carbon Dioxide (21 - 32 mmol/L) 19 L Anion Gap (4.0 - 15.0 GAP calc) 7.0 BUN (7 - 18 MG/DL) 13 Creatinine (0.6 - 1.0 MG/DL) 0.8 Glomerular Filtr Rate (>60 estGFR) >=60 max es timate Glucose (70 - 110 MG/DL) 83 Calcium (8.5 - 10.1 MG/DL) 8.3 L Magnesium (1.8 - 2.4 MG/DL) 1.9 Total Bilirubin (0.2 - 1.2 MG/DL) 0.30 AST (15 - 37 Unit/L) 41 H ALT (12 - 78 Unit/L) 65 Total Alk Phosphatase (45 - 117 Unit/L) 103 Total Protein (6.4 - 8.2 G/DL) 6.7 Albumin (3.4 - 5.0 G/DL) 3.0 L Globulin (GM/dL) 3.7 Albumin/Globulin Ratio (1.2 - 2.2 RATIO) 0.8 L Laboratory Tests 03/08 1655 Hematology WBC (3.5 - 11.0 K/mm3) 10.5 RBC (4.70 - 6.10 M/mm3) 4.13 L Hgb (10.4 - 14.9 G/DL) 11.0 Hct (31.5 - 44.1 %) 32.7 MCV (84.5 - 98.6 Fl) 79.2 L MCH (27.0 - 34.2 pg) 26.6 L MCHC (31.5 - 34.0 G/DL) 33.6 RDW (11.5 - 14.5 SD) 16.5 H Plt Count (150 - 450 K/mm3) 467.0 H MPV (7.0 - 10.5 fL) 9.20 Neut % (Auto) (40 - 76 %) 67.6 Lymph % (Auto) (20.5 - 51.1 %) 21.3 [place] % (Auto) (1.7 - 9.3 %) 10.2 H Eos % (Auto) (0.0 - 6.0 %) 0.5 Baso % (Auto) (0.0 - 2.0 %) 0.4 Neut # (Auto) (1.8 - 7.6 K/mm3) 7.10 Lymph # (Auto) (0.6 - 3.2 K/mm3) 2.2 [place] # (Auto) (0.3 - 1.1 K/mm3) 1.1 Eos # (Auto) (0.0 - 0.4 K/mm3) 0.1 Baso # (Auto) (0.0 - 0.1 K/mm3) 0.0 Add Manual Diff (CRITERIA DIFF/SCN) NO Laboratory Tests 03/08 03/08 8896 1655 Toxicology Urine Opiates Screen (<2000 NG/ML SCcutoff) NEG ATIVE Urine Methadone Screen (<300 NG/ML SCcutoff) NE GATIVE Urine Barbiturates (<200 NG/ML SCcutoff) NEGATI VE Ur Phencyclidine Scrn (<25 NG/ML SCcutoff) NEGA TIVE Ur Amphetamines Screen (<1000 NG/ML SCcutoff) N EGATIVE U Benzodiazepines Scrn (<200 NG/ML SCcutoff) NE GATIVE Urine Cocaine Screen (<300 NG/ML SCcutoff) NEGA TIVE Urine Cannabinoids (<50 NG/ML SCcutoff) NEGATIV E Ethyl Alcohol (0 - 10 MG/DL) < 3 Radiology data: Recent Impressions: RADIOLOGY - XR CHEST 1 V 03/08 1627 Report Impression - Status: SIGNED Entered: 03/08/2019 1636 IMPRESSION: Lungs are clear. No acute abnormalit y. Impression By: [email or web address] - Donavon Blanco M.D. CAT SCAN - CT HEAD/BRAIN W/O CONT 03/08 1710 Report Impression - Status: SIGNED Entered: 03/08/2019 1942 IMPRESSION: There is no imaging evidence of acute intracrani al pathology. Impression By: EsthelaPMT - John Ramos Diagnosis, Assessment Plan Problem List/A P: 1. Unintentional weight loss 2. Hx of essential hypertension Free Text DxA P Notes Free Text DxA P Notes: 1. unintentional weight loss - CTH negative - CXR negative - pt in NAD, actively eating during interview - will check HIV, Hep panel, TSH/FT4, HgbA1c - polypharmacy may be contri buting factor as pt on several narcotics for chronic pain - will likely require further outpatient work up - GI/DVT prophylaxis at 0353 RPT #: [id number] END OF REPORT 2019-03-08 20:58:00-00:00 [facility] ([facility]) Hospitalist History Physical REPORT#:[id number] REPORT STATUS: Signed DATE:03/08/19 TIME:2057 PATIENT: PRATIBHA JENNINGS UNIT #: [id number] ROOM[facility]BED: [facility] : 63 AGE: 53 SEX: F ATTEND: Armen Orta MD ADM AUTHOR: Ami Hairston * ALL edits or amendments must be made on the [employer]/computer document * History of Present Illness HPI Chief complaint: unintentional weight loss Free Text HPI Notes Free Text HPI Notes: 53 y/o female with PMHx of H TN, HLD, chronic pain was referred from GI Dr. Joe for evaluation of unintentional weight l oss. Pt states that she has lost 40lbs in the past 4 months. Has had decreased appetite and PO intake, occasional nausea and dizziness. Denies any abdominal pain, vomiting or diarrhea. No cough. No fevers/chills. States she had a normal colono scopy last year. History Past medical history: Reports: Hypertension. Denies: Congestive heart failure, Coronary artery disease, Diabetes mellitus. Smoking status for patients 13 years old or olde r: Current every day smoker Medication/Allergy-Vaccine Hx Allergies: Coded Allergies: iodine (Mild, TOPICAL IODINE-RASH/BLISTER ) Review of Systems Constitutional: Reports: generalized weakness, recent wt loss. D enies: chills, fever. Skin: Denies: bruising, rash. Eyes: Denies: redness, eye pain. ENT: Denies: nasal congestion, sore throat. Respiratory: Denies: productive cough (sputum), SOB, wheezing . Cardiovascular: Denies: chest pain, palpitations. GI: Reports: nausea. Denies: abdominal pain, diarrhe a, vomiting. : Denies: dysuria, flank pain, hematuria. Musculoskeletal: Denies: extremity pain, extremity swelling. Neuro: Denies: dizziness, headache, syncope. Objective General VS/I O: Vital Signs: Date Time Temp Pulse Resp B/P B/P Pulse O2 O2 F low FiO2 Mean Ox Delivery Rate 03/09 0147 71 143/83 103 03/08 2323 37.4 71 18 168/91 116.8 98 03/08 2156 36.7 76 18 115/69 84 96 Room air 96 03/08 2000 36.7 70 18 132/72 92 100 Room air 03/08 1820 36.7 78 18 130/78 95 100 Room air 03/08 1610 36.7 73 18 142/75 97 99 Room air 24 hour I O ending at 0700: 04/12 0700 03/08 1900 Intake Total Output Total Balance Patient 41.182 kg Weight Weight Stated/Reported Measurement Method Physical Exam General appearance: underweight, alert, awake, o riented, no acute distress, pleasant, conversational, thin female Head/Eyes: atraumatic, normocephalic ENT: moist mucosal membranes, normal pharynx Neck: supple/no meningismus, no JVD Cardiovascular: normal heart sounds, regular rat e rhythm Respiratory: clear to auscultation, symmetric ex pansion, no distress Abdomen: non-tender, soft, no distention Extremities: moves all, no edema Neuro/MARKER ASSEMBLER: alert, oriented X 3, normal speech Results Findings/Data: Laboratory Tests 03/08 165 Chemistry Sodium (134 - 147 mmol/L) 133 L Potassium (3.4 - 5.0 mmol/L) 3.7 Chloride (100 - 108 mmol/L) 107 Carbon Dioxide (21 - 32 mmol/L) 19 L Anion Gap (4.0 - 15.0 GAP calc) 7.0 BUN (7 - 18 MG/DL) 13 Creatinine (0.6 - 1.0 MG/DL) 0.8 Glomerular Filtr Rate (>60 estGFR) >=60 max es timate Glucose (70 - 110 MG/DL) 83 Calcium (8.5 - 10.1 MG/DL) 8.3 L Magnesium (1.8 - 2.4 MG/DL) 1.9 Total Bilirubin (0.2 - 1.2 MG/DL) 0.30 AST (15 - 37 Unit/L) 41 H ALT (12 - 78 Unit/L) 65 Total Alk Phosphatase (45 - 117 Unit/L) 103 Total Protein (6.4 - 8.2 G/DL) 6.7 Albumin (3.4 - 5.0 G/DL) 3.0 L Globulin (GM/dL) 3.7 Albumin/Globulin Ratio (1.2 - 2.2 RATIO) 0.8 L Laboratory Tests 03/08 1655 Hematology WBC (3.5 - 11.0 K/mm3) 10.5 RBC (4.70 - 6.10 M/mm3) 4.13 L Hgb (10.4 - 14.9 G/DL) 11.0 Hct (31.5 - 44.1 %) 32.7 MCV (84.5 - 98.6 Fl) 79.2 L MCH (27.0 - 34.2 pg) 26.6 L MCHC (31.5 - 34.0 G/DL) 33.6 RDW (11.5 - 14.5 SD) 16.5 H Plt Count (150 - 450 K/mm3) 467.0 H MPV (7.0 - 10.5 fL) 9.20 Neut % (Auto) (40 - 76 %) 67.6 Lymph % (Auto) (20.5 - 51.1 %) 21.3 [place] % (Auto) (1.7 - 9.3 %) 10.2 H Eos % (Auto) (0.0 - 6.0 %) 0.5 Baso % (Auto) (0.0 - 2.0 %) 0.4 Neut # (Auto) (1.8 - 7.6 K/mm3) 7.10 Lymph # (Auto) (0.6 - 3.2 K/mm3) 2.2 [place] # (Auto) (0.3 - 1.1 K/mm3) 1.1 Eos # (Auto) (0.0 - 0.4 K/mm3) 0.1 Baso # (Auto) (0.0 - 0.1 K/mm3) 0.0 Add Manual Diff (CRITERIA DIFF/SCN) NO Laboratory Tests 03/08 03/08 1834 1655 Toxicology Urine Opiates Screen (<2000 NG/ML SCcutoff) NEG ATIVE Urine Methadone Screen (<300 NG/ML SCcutoff) N EGATIVE Urine Barbiturates (<200 NG/ML SCcutoff) NEGATI VE Ur Phencyclidine Scrn (<25 NG/ML SCcutoff) NEG ATIVE Ur Amphetamines Screen (<1000 NG/ML SCcutoff) N EGATIVE U Benzodiazepines Scrn (<200 NG/ML SCcutoff) NE GATIVE Urine Cocaine Screen (<300 NG/ML SCcutoff) NEGA TIVE Urine Cannabinoids (<50 NG/ML SCcutoff) NEGATIV E Ethyl Alcohol (0 - 10 MG/DL) < 3 Radiology data: Recent Impressions: RADIOLOGY - XR CHEST 1 V 03/08 1627 Report Impression - Status: SIGNED Entered: 03/08/2019 3156 IMPRESSION: Lungs are clear. No acute abnormalit y. Impression By: [email or web address] - Donavon Blanco M.D. CAT SCAN - CT HEAD/BRAIN W/O CONT 03/08 1710 Report Impression - Status: SIGNED Entered: 03/08/20191941 IMPRESSION: There is no imaging evidence of acute intracrani al pathology. Impression By: EsthelaPMT - John Ramos Diagnosis, Assessment Plan Problem List/A P: 1. Unintentional weight loss 2. Hx of essential hypertension Free Text DxA P Notes Free Text DxA P Notes: 1. unintentional weight loss - CTH negative - CXR negative - pt in NAD, actively eating during interview - will check HIV, Hep panel, TSH/FT4, HgbA1c - polypharmacy may be contri buting factor as pt on several narcotics for chronic pain - will likely require further outpatient work up - GI/DVT prophylaxis at 0353 Electronically Signed by Bryan Orta MD on 0 03/20/19 at 1450 RPT #: [id number] END OF REPORT 2019-03-08 16:52:00-00:00 [id number] [facility] [id number] [place] [id number] PATIENT NAME: PRATIBHA JENNINGS ADMIT DATE: 03/08 ACCOUNT NO: [id number] ROOM NO: L.OBS1 AGE: 53 REPORT TYPE: eELECTROCARDIOGRAM SEX: F ADMITTING PHYSICIAN: Bryan Orta MD ATTENDING PHYSICIAN: Bryan Orta MD Order: [id number] Test Reason : Test Date/Time Stamp: TueMar 08 2019 16:52:05 Blood Pressure : / mmHG Vent. Rate : 068 BPM Atrial Rate : 068 BPM P-R Int : 138 ms QRS Dur : 070 ms QT Int : 446 ms P-R-T Axes : 058 067 071 degree s QTc Int : 474 ms Sinus rhythm with premature atrial complexes Otherwise normal ECG No previous ECGs available Confirmed by ELIZABETH SOLARES MD ([id number]) on 019 9:38:03 PM Referred By: Self Referred Confirmed by:ELIZABETH BOOTH MD PATIENT NAME: PRATIBHA JENNINGS [id number] 16:43:00-00:00 [facility]) EMERGENCY PROVIDER REPORT REPORT#:[id number] REPORT STATUS: Signed DATE:03/08/19 TIME:1642 PATIENT: PRATIBHA JENNINGS UNIT #: [id number] ROOM/BED: [place] [id number] : 64 AGE: 53 SEX: F PCP PHYS: Tasha Joe MD SERVICE AUTHOR: Maria Morel MD * ALL edits or amendments must be made on the el ectronic/computer document * HPI-General Illness Free Text HPI Notes Free Text HPI Notes 53yo WF with PMH of chronic pain p/w unexplained 40lb weight loss. Associated with decreased appetite, lissette sea, chills and blurry vision. Also with back pain. Pt was referred to ER by Dr. Joe (GI). Has not taken any OTC meds prior to coming to ER. Denies fever, CP, SOB, HAGER, dizzine ss, or V/D. General Confirmed Patient Yes Patient Type New patient Initial Greet Date/Time 03/08/19 1600 Presentation Chief Complaint losing weight, loss of appetite Hx Obtained From Patient Sudden in Onset? No Onset Occurred Weeks ago (8) Symptom Duration Since onset, Constant Progression since Onset Unchanged Caused by No trauma by history Portions of this section were scribed by Brennon Garcia on 03/08/19 at 1852 Review of Systems ROS Statements All systems rev neg except as marked. Review of Systems Constitutional Reports: Chills. Denies: Fever. Eyes Reports: Blurred bilat. Denies: Discharge bilat, Redness bilat. Ears/Nose/Throat Denies: Nasal congestion, Sinus problem. Respiratory Denies: Cough, non-productive, Cough, productive , Dyspnea on exertion. Cardiovascular Denies: Chest pain, Dyspnea on exertion, Edema. GI Reports: Nausea. Denies: Abdominal pain, Vomitin g. Female Denies: Dysuria, Flank pain. Musculoskeletal Reports: Back pain. Denies: Extremity pain, Extr emity swelling. Skin Denies: Diaphoresis, Laceration, Rash, Swelling. Neurologic Reports: Generalized weakness, Shaking. Denies: Dizziness, Headache, Numbness, Tingling, Unable to speak. Portions of this section were scribed by Brennon Garcia on 03/08/19 at 1654 Past Medical History - Adult Stated Complaint LOSING WEIGHT, NO APPETITE Allergies Coded Allergies: iodine (Mild, TOPICAL IODINE-RASH/BLISTER ) Home Medications Reported Medications LIDOCAINE (LIDODERM 5%) 3 PATCH TRANSDERM DAILY oxyCODONE/APAP (PERCOCET 10/325 MG) 1 TAB PO Q6H WA ATORVASTATIN (LIPITOR) 20 MG PO BEDTIME MORPHINE SULFATE (MORPHINE) 15 MG PO Q12HR amLODIPine (NORVASC) 2.5 MG PO DAILY GABAPENTIN (NEURONTIN) 600 MG PO TID DEXLANSOPRAZOLE DR (DEXILANT) 60 MG PO DAILY FERROUS SULFATE (FEOSOL) 325 MG PO BID MELOXICAM (MOBIC) 15 MG PO DAILY ZOLPIDEM (AMBIEN) 5 MG PO BEDTIME PRN PRN INSOMN IA Discontinued Reported Medications tiZANidine (ZANAFLEX) 4 MG PO TID CEPHALEXIN (KEFLEX) 500 MG PO Q8H [DEPROVERA INJECTION] 1 DOSE IM ASDIR ENALAPRIL (VASOTEC) 20 MG PO DAILY tiZANidine (ZANAFLEX) 2 TABS PO BID [CORYDALIS] 1 DOSE PO ASDIR [KETAMINE TOPICAL CRE] 1 DOSE TOP BID Review of Nursing Notes Rev avail, and agree Pt reports no significant: Past surgical history Smoking status for patients 13 years old or olde r: Current every day smoker Portions of this section were scribed by Brennon Garcia on 03/08/19 at 1654 Physical Exam Vital Signs Vital Signs First Documented: Result Date Time Pulse Ox 99 03/08 1610 B/P 142/75 03/08 1610 B/P Mean 97 03/08 1610 O2 Delivery Room air 03/08 1610 Temp 98.1 03/08 1610 Pulse 73 03/08 1610 Resp 18 03/08 1610 Last Documented: Result Date Time Pulse Ox 100 03/08 1820 B/P 130/78 03/08 1820 B/P Mean 95 03/08 1820 O2 Delivery Room air 03/08 1820 Temp 98.1 03/08 1820 Pulse 78 04/11 1820 Resp 18 03/08 1820 Review of Vital Signs Reviewed Physical Exam General/Const General/Const Awake, Alert, No acute distress MS Head Head Atraumatic, Normocephalic Eyes Eyes Atraumatic, PERRL, EOMI, No scleral icteru s Ears/Nose/Throat Ears/Nose/Throat Atraumatic, Airway patent, Muc ous membranes moist MS Neck Neck Atraumatic, Supple, No meningismus, Full r rogelio of motion Resp/Chest Respiratory/Chest Atraumatic, Breath sounds NL, Breath sounds = bilat, No respiratory distress, No wheezing Cardiovascular Cardiovascular Heart rate NL, Regular rhythm, H eart sounds NL, No murmurs, Peripheral circulation NL Abdomen/GI Abdomen/GI Atraumatic, Soft, Non-tender, No gua rding, No distention Skin Skin Warm, Dry, Intact Neurologic Neurologic Oriented X3, Speech NL, Gait NL Psychiatric Psychiatric Affect NL, Mood NL Portions of this section were scribed by Brennon Garcia on 03/08/19 at 1654 Interpretation Diagnostics Lab Results Interpretation Results Laboratory Tests 03/08/19 1655: [Embedded Image Not Available] Laboratory Tests: 03/08 03/08 1834 1655 Chemistry Sodium (134 - 147 mmol/L) 133 L Potassium (3.4 - 5.0 mmol/L) 3.7 Chloride (100 - 108 mmol/L) 107 Carbon Dioxide (21 - 32 mmol/L) 19 L Anion Gap (4.0 - 15.0 GAP calc) 7.0 BUN (7 - 18 MG/DL) 13 Creatinine (0.6 - 1.0 MG/DL) 0.8 Glomerular Filtr Rate (>60 estGFR) >=60 max est imate Glucose (70 - 110 MG/DL) 83 Calcium (8.5 - 10.1 MG/DL) 8.3 L Magnesium (1.8 - 2.4 MG/DL) 1.9 Total Bilirubin (0.2 - 1.2 MG/DL) 0.30 AST (15 - 37 Unit/L) 41 H ALT (12 - 78 Unit/L) 65 Total Alk Phosphatase (45 - 117 Unit/L) 103 Total Protein (6.4 - 8.2 G/DL) 6.7 Albumin (3.4 - 5.0 G/DL) 3.0 L Globulin (GM/dL) 3.7 Albumin/Globulin Ratio (1.2 - 2.2 RATIO) 0.8 L Hematology WBC (3.5 - 11.0 K/mm3) 10.5 RBC (4.70 - 6.10 M/mm3) 4.13 L Hgb (10.4 - 14.9 G/DL) 11.0 Hct (31.5 - 44.1 %) 32.7 MCV (84.5 - 98.6 Fl) 79.2 L MCH (27.0 - 34.2 pg) 26.6 L MCHC (31.5 - 34.0 G/DL) 33.6 RDW (11.5 - 14.5 SD) 16.5 H Plt Count (150 - 450 K/mm3) 467.0 H MPV (7.0 - 10.5 fL) 9.20 Neut % (Auto) (40 - 76 %) 67.6 Lymph % (Auto) (20.5 - 51.1 %) 21.3 [place] % (Auto) (1.7 - 9.3 %) 10.2 H Eos % (Auto) (0.0 - 6.0 %) 0.5 Baso % (Auto) (0.0 - 2.0 %) 0.4 Neut # (Auto) (1.8 - 7.6 K/mm3) 7.10 Lymph # (Auto) (0.6 - 3.2 K/mm3) 2.2 [place] # (Auto) (0.3 - 1.1 K/mm3) 1.1 Eos # (Auto) (0.0 - 0.4 K/mm3) 0.1 Baso # (Auto) (0.0 - 0.1 K/mm3) 0.0 Add Manual Diff (CRITERIA DIFF/SCN) NO Toxicology Urine Opiates Screen (<2000 NG/ML SCcutoff) NEG ATIVE Urine Methadone Screen (<300 NG/ML SCcutoff) NE GATIVE Urine Barbiturates (<200 NG/ML SCcutoff) NEGATI VE Ur Phencyclidine Scrn (<25 NG/ML SCcutoff) NEGA TIVE Ur Amphetamines Screen (<1000 NG/ML SCcutoff) N EGATIVE U Benzodiazepines Scrn (<200 NG/ML SCcutoff) NE GATIVE Urine Cocaine Screen (<300 NG/ML SCcutoff) NEGA TIVE Urine Cannabinoids (<50 NG/ML SCcutoff) NEGATIV E Ethyl Alcohol (0 - 10 MG/DL) < 3 Recent Impressions: RADIOLOGY - XR CHEST 1 V 03/08 1627 Report Impression - Status: SIGNED Entered: 03/08/2019 1636 IMPRESSION: Lungs are clear. No acute abnormalit y. Impression By: [email or web address] - Donavon Blanco M.D. CAT SCAN - CT HEAD/BRAIN W/O CONT 03/08 1710 Report Impression - Status: SIGNED Entered: 03/08/2019 1942 IMPRESSION: There is no imaging evidence of acute intracrani al pathology. Impression By: Robert - John Ramos Lab Imaging Statement Laboratory radiographic studies reviewed and con sidered in the medical decision-making. Point of Care Testing Pulse Oximetry Pulse Ox % 99 On: Room air Interpretation Interpreted by me, Pulse oximetr y normal Time 1610 Portions of this section were scribed by Brennon Garcia on 03/08/19 at 1852 Re-Evaluation MDM Free Text MDM Notes Free Text MDM Notes A/P: 53yo WF with PMH as above p/w unintentional weight loss. 1. Labs 2. CXR 3. CT-head 4. Re-assess ADDENDUM Time: 1849 Labs wnl. Imaging -ve. Case d/w You (hospitalist); admission accepted. Orders to be placed by admitting team. Re-Evaluation/Progress #1 Time of Re-Eval 1850 Re-Eval Status Improved Eval Following Treatment Pt. feels better, Condi tion improved Plan Post Re-Eval Plan discharge Differential Diagnosis Differential Diagnosis Abdominal pain, Acute cor onary syndrome, Malingering Patient Discharge Departure Vital Signs/Condition Vital Signs First Documented: Result Date Time Pulse Ox 99 03/08 1610 B/P 142/75 03/08 1610 B/P Mean 97 03/08 1610 O2 Delivery Room air 03/08 1610 Temp 98.1 03/08 1610 Pulse 73 03/08 1610 Resp 18 03/08 1610 Last Documented: Result Date Time Pulse Ox 100 03/08 1820 B/P 130/78 03/08 1820 B/P Mean 95 03/08 1820 O2 Delivery Room air 03/08 1820 Temp 98.1 03/08 1820 Pulse 78 03/08 1820 Resp 18 03/08 1820 All vital signs available at the time of this en try have been reviewed. Condition Stable Clinical Impression Clinical Impression Primary Impression: Unintentional weight loss Secondary Impressions: Orthostatic dizziness Disposition Decision Admit Admit Physician Name Bryan Orta Admit Physician Hospitalist Request Time 1852 Request Date 03/08/19 )( Admission Accepts Yes )( Accepted Time 1852 )( Accepted Date 03/08/19 Call Information will see patient, agrees with eval, agrees with plan Discharge/Care Plan Counseled Regarding Diagnosi s, Lab results, Imaging studies, Need for admission Admit Note I have spoken with the patie nt and/or caregivers. I have explained the patient's condition, diagnoses and sharron atment plan based on the information available to me at this time. I have answered the patient's and/ or caregiver's questions and addressed any concerns. The patient and/or careg malia have as good an understanding of the patient 's diagnosis, condition and treatment plan as can be expected at this point. The patient has been stabilized within the capability of the emergency department. The patient wi ll be transported for further care and management or will be moved to an observation or inpatient service. I have communicated with the staff or medical p ractitioner taking over this patient's care. Supervising Physician Note Scribe Statement Brennon Madera, 03/08/19 1647, scribing for an d in the presence of Dr. Morel. Signed By: Brennon Madera, 03/08/19 4860 Provider Scribed Statement I personally performed the s ervices described in this documentation and reviewed the documentation that was dictated to the scrib e(s) in my presence, and it accurately records my words and actions. Maria Lobato, 03/13/19 Portions of this section were scribed by Brennon Garcia on 03/08/19 at 1852 at 0907 RPT #: [id number] END OF REPORT
[2023-08-13] MEDS ORDERED: CEFTRIAXONE 1000 MG/VIAL ONE (23:26)
[2023-08-13] MEDS ORDERED: SMZ./TMP. 800/160 MG TABLET ONE (23:26)
[2023-08-13] MEDS ORDERED: ONDANSETRON 4 MG (ODT) TAB ONE (23:26)
[2023-08-13] MEDS ORDERED: NA CHLORIDE 0.9% 50 ML ONE (23:27)
[2023-08-13 23:28] LABS: Absolute Lymphocytes (CBC) 1.8 K/uL (0.7-4.9); Hematocrit 36.6 % (36.0-45.0); Lymphocytes % 18.5 % (15.3-44.8); MCV 90.8 fL (80-100); MPV 7.8 fL (7.6-11.3); Platelets 240 thou/uL (152-406); RBC Red Blood Cell Count 4.03 M/uL (3.86-4.86)
[2023-08-13 23:44] LABS: ALT/SGPT 98 U/L (13-56); AST/SGOT 63 U/L (15-37); Albumin 3.5 g/dL (3.4-5.0); Alkaline Phosphatase 91 U/L (45-117); BUN Blood Urea Nitrogen 10 mg/dL (7-18); Bicarbonate 25 mEq/L (21-32); Bilirubin Total 0.2 mg/dL (0.2-1.0); Glomerular Filtration Rate 97 ml/min (=/>90); Glucose Level 132 mg/dL (74-106); Potassium 3.6 mEq/L (3.5-5.1); Protein, Total 7.3 g/dL (6.4-8.2); Sodium Level 132 mEq/L (136-145)
[2023-08-13 23:46] LABS: Bilirubin Direct < 0.1 mg/dL (0-0.2); Bilirubin Indirect, Calculated ND mg/dL (0.2-0.8)
--- NOTE | 2023-08-14 00:48 | ER ---
Nurse's Notes [facility] Name: Pratibha Jennings Age: 57 yrs Sex: Female : 1965 Arrival Date: 08/13/2023 Time: 22:48 Bed 6 Private MD: Diagnosis: Cellulitis of right lower limb;Right foot and ankle cellulitis, right plantar foot pressure sore, right plantar foot hemorrhagic blister. Presentation: 08/13 22:56 Chief complaint: Patient states: right foot redness with swelling,onset 2 weeks with a pf1 pressure sore with blister,onset today. stated patient wears a foot brace due to foot drop. 22:56 Coronavirus screen: Vaccine status: Patient reports receiving the 2nd dose of the covid pf1 vaccine. Moderna Client denies travel out of the [place] in the last 14 days. At this time, the client does not indicate any symptoms associated with coronavirus-19. Ebola Screen: Patient negative for fever greater than or equal to 101.5 degrees Fahrenheit, and additional compatible Ebola Virus Disease symptoms. Initial Sepsis Screen: Does the patient meet any 2 criteria? No. Patient's initial sepsis screen is negative. Does the patient have a suspected source of infection? No. Patient's initial sepsis screen is negative. Risk Assessment: Do you want to hurt yourself or someone else? Patient reports no desire to harm self or others. 22:56 Method Of Arrival: Wheelchair pf1 22:56 Acuity: NUSRAT 3 pf1 08/14 00:40 Onset of symptoms was July 31, 2023. jw7 Triage Assessment: 08/13 23:30 General: Appears in no apparent distress. uncomfortable, Behavior is calm, cooperative. jw7 Pain: Complains of pain in right foot Pain does not radiate. Quality of pain is described as tender, tingling, throbbing. EENT: No deficits noted. No signs and/or symptoms were reported regarding the EENT system. Neuro: No deficits noted. Gaffney Agitation-Sedation Scale (RASS): 0 - Alert and Calm. Cardiovascular: No deficits noted. Capillary refill < 3 seconds Clubbing of nail beds is absent JVD is absent Patient's skin is warm and dry. Respiratory: No deficits noted. Airway is patent Trachea midline Respiratory effort is even, unlabored, Respiratory pattern is regular, symmetrical. GI: No deficits noted. No signs and/or symptoms were reported involving the gastrointestinal system. Abdomen is round non-distended. : No deficits noted. No signs and/or symptoms were reported regarding the genitourinary system. Derm: Wound noted right foot. Musculoskeletal: No deficits noted. No signs and/or symptoms reported regarding the musculoskeletal system. Circulation, motion, and sensation intact. Range of motion: intact in all extremities. Historical: - Allergies: 23:18 Iodine; topical; pf1 23:18 Latex, Natural Rubber; pf1 - Home Meds: 23:40 amlodipine 10 mg tablet 1 tab daily [Active]; metoprolol tartrate 50 mg Oral tablet 2 pf1 times per day [Active]; fluoxetine 40 mg Oral capsule 1 cap 2 times per day [Active]; trazodone 50 mg Oral tablet 1 tab daily [Active]; sucralfate 1 gram Oral tablet 1 tab once [Active]; gabapentin 600 mg oral tablet 1 tab every 6 hours [Active]; topiramate 50 mg oral tablet 1 tab 2 times per day [Active]; - PMHx: 23:18 ADD/ADHD; Back pain; Chronic pain; Degenerative disc disease; hepatic encephalopathy; pf1 Hyperlipidemia; Hypertension; 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 - Social history:: Smoking status: Patient reports the use of cigarette tobacco products, smokes one-half pack cigarettes per day, Patient uses alcohol, occasionally. Patient/guardian denies using street drugs. - Family history:: not pertinent. Screenin:30 [facility] ED Fall Risk Assessment (Adult) History of falling in the last 3 months, jw7 including since admission No falls in past 3 months (0 pts) Score/Fall Risk Level 0 - 2 = Low Risk. Abuse screen: Denies threats or abuse. Denies injuries from another. Nutritional screening: No deficits noted. Tuberculosis screening: No symptoms or risk factors identified. Assessment: 23:30 General: see triage assessment. jw7 08/14 00:43 Reassessment: Patient appears in no apparent distress at this time. Patient and/or jw7 family updated on plan of care and expected duration. Pain level reassessed. Patient is alert, oriented x 3, equal unlabored respirations, skin warm/dry/pink. Patient states symptoms have improved. Vital Signs: 08/13 22:56 BP 113 / 74; Pulse 62; Resp 18; Temp 97.9; Pulse Ox 100% on R/A; Weight 68.49 kg; pf1 Height 5 ft. 4 in. ; Pain 6/10; 23:00 BP 113 / 74 RA Sitting (auto/reg); Pulse 61 MON; Resp 16 S; Pulse Ox 99% on R/A; jw7 08/14 00:00 BP 94 / 65 RA Supine (auto/reg); Pulse 66 MON; Resp 15 S; Pulse Ox 97% on R/A; jw7 00:32 BP 95 / 68; Pulse 64; Resp 15 S; Pulse Ox 98% on R/A; jw7 08/13 22:56 Body Mass Index 25.92 (68.49 kg, 162.56 cm) pf1 08/13 22:56 Pain Scale: Adult pf1 ED Course: 08/13 22:52 Patient arrived in ED. kj1 23:00 Baldemar Norman PA is PHCP. cp 23:00 Estuardo Epperson MD is Attending Physician. cp 23:01 Tianna Slaughter, ANGELA is Primary Nurse. jw7 23:19 Initial lab(s) drawn, by ar, sent to lab. Inserted saline lock: 22 gauge in left iw antecubital area, using aseptic technique. Blood collected. 23:29 Triage completed. pf1 23:30 Patient has correct armband on for positive identification. Bed in low position. Call jw7 light in reach. Side rails up X 1. 08/14 00:39 Arm band placed on. jw7 00:40 No provider procedures requiring assistance completed. jw7 01:09 IV discontinued, intact, bleeding controlled, No redness/swelling at site. Pressure jw7 dressing applied. 01:09 Provided Education on: wound care, discharge instructions, and medications. jw7 Administered Medications: 08/13 23:25 Drug: Trimethoprim-Sulfamethoxazole PO (160 mg-800 mg (DS) 1 tablet Route: PO; jw7 08/14 01:10 Follow up: Response: No adverse reaction 7 08/13 23:25 Drug: Ondansetron PO 4 mg Route: PO; 7 08/14 01:10 Follow up: Response: No adverse reaction 08/13 23:25 Drug: Rocephin - Rocephin (cefTRIAXone) IVPB 1 grams Route: IVPB; Infused Over: 30 jw7 mins; Site: left antecubital; 08/14 01:10 Follow up: Response: No adverse reaction; IV Status: Completed infusion; IV Intake: 07untk7 Medication: 00:40 VIS not applicable for this client. jw7 Intake: 01:10 IV: 50ml; Total: 50ml. jw7 Outcome: 00:47 Discharge ordered by . sp4 01:08 Discharged to home via wheelchair, with family. jw7 01:08 Condition: stable 01:08 Discharge instructions given to patient, Instructed on discharge instructions, follow up and referral plans. medication usage, Demonstrated understanding of instructions, follow-up care, medications, Prescriptions given X 2. 01:10 Patient left the ED. jw7 Signatures: Leola Fleming RN RN iw Baldemar Norman PA PA cp Jackson, Kandis kj1 Tianna Slaughter RN RN jw7 Dolores Phipps RN RN pf1 Estuardo Epperson MD MD sp4 Corrections: (The following items were deleted from the chart) 00:08/13 11:30 General: Appears in no apparent distress. uncomfortable, Behavior is calm, jw7 cooperative, 7 08/14 00:08/13 11:30 Pain: Complains of pain in right foot Pain does not radiate. Quality of jw7 pain is described as tender, tingling, throbbing, 7 08/14 00:08/13 11:30 EENT: No deficits noted. No signs and/or symptoms were reported regarding jw7 the EENT system. 7 08/14 00:08/13 11:30 Neuro: No deficits noted. Gaffney Agitation-Sedation Scale (RASS): 0 - jw7 Alert and Calm jw7 08/14 00:08/13 11:30 Cardiovascular: No deficits noted. Capillary refill < 3 seconds Clubbing of jw7 nail beds is absent JVD is absent Patient's skin is warm and dry. 7 08/14 00:08/13 11:30 Respiratory: No deficits noted. Airway is patent Trachea midline [facility] Respiratory effort is even, unlabored, Respiratory pattern is regular, symmetrical, 7 08/14 00:08/13 11:30 GI: No deficits noted. No signs and/or symptoms were reported involving the [facility] gastrointestinal system. Abdomen is round non-distended, 7 08/14 00:08/13 11:30 : No deficits noted. No signs and/or symptoms were reported regarding the [facility] genitourinary system. 7 08/14 00:08/13 11:30 Derm: Wound noted right foot jw7 08/14 00:08/13 11:30 Musculoskeletal: No deficits noted. No signs and/or symptoms reported [facility] regarding the musculoskeletal system. Circulation, motion, and sensation intact. Range of motion: intact in all extremities, [facility]
--- NOTE | 2023-08-14 00:48 | EDPHYS ---
Physician Documentation [facility] Name: Pratibha Jennings Age: 57 yrs Sex: Female : 1965 Arrival Date: 08/13/2023 Time: 22:48 Bed 6 Private MD: ED Physician Estuardo Epperson HPI: 08/13 23:04 This 57 yrs old Female presents to ER via Unassigned with complaints of Foot sp4 Pain, Leg Swelling. 23:06 Allergies: Iodine; topical; Latex, Natural Rubber PMHx: ADD/ADHD; Back pain; Chronic sp4 pain; Degenerative disc disease; hepatic encephalopathy; Hyperlipidemia; Hypertension; PSHx: Disc removal; Left clavicle; Left knee replacement; Left wrist surgery; Right knee replacement; Spinal surgery;. 08/14 03:40 Very pleasant 57-year-old female presents with right foot swelling, and the right foot sp4 with a bloody blister on the plantar surface of the right foot. Patient states she has no feeling in the right leg ever since she had spinal injection for pain control. Patient aware us coaptation brace on the right lower extremity. Today patient's noticed that patient was having bloody exudate from the right foot and presumed that she may be getting a gangrene.. 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 History of septic shock and pneumonia. Patient's medications include dexlansoprazole, sucralfate, fluoxetine, gabapentin, topiramate, amlodipine, [place] 10, metoprolol, temazepam, thiamine, . Historical: - Allergies: 08/13 23:18 Iodine; topical; pf1 23:18 Latex, Natural Rubber; pf1 - Home Meds: 23:40 amlodipine 10 mg tablet 1 tab daily [Active]; metoprolol tartrate 50 mg Oral tablet 2 pf1 times per day [Active]; fluoxetine 40 mg Oral capsule 1 cap 2 times per day [Active]; trazodone 50 mg Oral tablet 1 tab daily [Active]; sucralfate 1 gram Oral tablet 1 tab once [Active]; gabapentin 600 mg oral tablet 1 tab every 6 hours [Active]; topiramate 50 mg oral tablet 1 tab 2 times per day [Active]; - PMHx: 23:18 ADD/ADHD; Back pain; Chronic pain; Degenerative disc disease; hepatic encephalopathy; pf1 Hyperlipidemia; Hypertension; 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 - Social history:: Smoking status: Patient reports the use of cigarette tobacco products, smokes one-half pack cigarettes per day, Patient uses alcohol, occasionally. Patient/guardian denies using street drugs. - Family history:: not pertinent. ROS: 08/14 03:40 Constitutional: Negative for fever, chills, and weight loss, Eyes: Negative for injury, sp4 pain, redness, and discharge, MS/Extremity: Negative for injury and deformity, positive for right foot bloody blister, right foot redness and swelling All other systems are negative. Exam: 03:40 Constitutional: This is a well developed, well nourished patient who is awake, alert, sp4 and in no acute distress. Head/Face: Normocephalic, atraumatic. Eyes: Pupils equal round and reactive to light, extra-ocular motions intact. Lids and lashes normal. Conjunctiva and sclera are not injected. Cornea within normal limits. Periorbital areas with no swelling, redness, or edema. ENT: Nares patent. No nasal discharge, no septal abnormalities noted. Tympanic membranes are normal and external auditory canals are clear. Oropharynx with no redness, swelling, or masses, exudates, or evidence of obstruction, uvula midline. Mucous membranes moist. Neck: Trachea midline, no thyromegaly or masses palpated, and no cervical lymphadenopathy. Supple, full range of motion without nuchal rigidity, or vertebral point tenderness. Chest/axilla: Normal chest wall appearance and motion. Nontender with no deformity. No lesions are appreciated. Cardiovascular: Regular rate and rhythm with a normal S1 and S2. No gallops, murmurs, or rubs. Normal PMI, no JVD. No pulse deficits. Respiratory: Lungs have equal breath sounds bilaterally, clear to auscultation and percussion. No rales, rhonchi or wheezes noted. No increased work of breathing, no retractions or nasal flaring. Abdomen/GI: Soft, non-tender, with normal bowel sounds. No distension or tympany. No guarding or rebound. No evidence of tenderness throughout. Back: No spinal tenderness. No costovertebral tenderness. Skin: Warm, dry with normal turgor. Normal color with no rashes, no lesions, positive right foot swelling, redness, and bloody blister suggestive of cellulitis. Cellulitis tracks just to the right ankle MS/ Extremity: Pulses equal, no cyanosis. Neurovascular intact. Full, normal range of motion. Neuro: Awake and alert, GCS 15, oriented to person, place, time, and situation. Cranial nerves II-XII grossly intact. Motor strength 5/5 in all extremities. Sensory grossly intact. Psych: Awake, alert, with orientation to person, place and time. Behavior, mood, and affect are within normal limits Vital Signs: 08/13 22:56 BP 113 / 74; Pulse 62; Resp 18; Temp 97.9; Pulse Ox 100% on R/A; Weight 68.49 kg; pf1 Height 5 ft. 4 in. ; Pain 6/10; 23:00 BP 113 / 74 RA Sitting (auto/reg); Pulse 61 MON; Resp 16 S; Pulse Ox 99% on R/A; jw7 08/14 00:00 BP 94 / 65 RA Supine (auto/reg); Pulse 66 MON; Resp 15 S; Pulse Ox 97% on R/A; jw7 00:32 BP 95 / 68; Pulse 64; Resp 15 S; Pulse Ox 98% on R/A; jw7 08/13 22:56 Body Mass Index 25.92 (68.49 kg, 162.56 cm) pf1 08/13 22:56 Pain Scale: Adult pf1 MDM: 08/13 23:00 Patient medically screened. cp 08/14 03:40 Differential diagnosis: sprain, penetrating trauma, arthritis, gout, cellulitis. Data sp4 reviewed: vital signs, nurses notes, old medical records, lab test result(s), CBC, electrolytes, hepatic panel. Consideration of Admission/Observation Escalation of care including admission/observation considered. Special discussion: I discussed with the patient/guardian in detail that at this point there is no indication for admission to the hospital. It is understood, however, that if the symptoms persist or worsen the patient needs to return immediately for re-evaluation. I discussed in detail with the patient the higher chance of wound infection based on his presenting history. ED course: Patient was given dose of Bactrim and Rocephin while in the emergency department. Right foot distal plantar ulcer /bloody blister was debrided, irrigated and nonadherent dressing was placed. Entry point for the infection is likely the blood blister on the plantar surface of the foot that materialized the ER since patient has no feeling to the right foot. Patient advised to take the weight off the right foot and apply bulky dressings daily, practice dressing changes daily, irrigation with peroxide and or water, nonadherent dressing such as Neosporin. Patient also advised to take protracted course of Bactrim and cephalexin which will be prescribed. Continue all home medications. ED course: Return to ER precautions were discussed with patient in detail.. 08/13 23:05 Order name: Basic Metabolic Panel; Complete Time: 00:46 sp4 08/13 23:05 Order name: CBC with Diff; Complete Time: 00:46 sp4 08/13 23:05 Order name: LFT's; Complete Time: 00:46 sp4 08/13 23:05 Order name: IV Saline Lock; Complete Time: 23:20 sp4 08/13 23:05 Order name: Labs collected and sent; Complete Time: 23:20 sp4 Administered Medications: 08/13 23:25 Drug: Trimethoprim-Sulfamethoxazole PO (160 mg-800 mg (DS) 1 tablet Route: PO; 08/14 01:10 Follow up: Response: No adverse reaction 08/13 23:25 Drug: Ondansetron PO 4 mg Route: PO; 08/14 01:10 Follow up: Response: No adverse reaction 08/13 23:25 Drug: Rocephin - Rocephin ([id number]) IVPB 1 grams Route: IVPB; Infused Over: 30 jw7 mins; Site: left antecubital; 08/14 01:10 Follow up: Response: No adverse reaction; IV Status: Completed infusion; IV Intake: [id number] Disposition Summary: 08/14/23 00:47 Discharge Ordered Location: Home sp4 Problem: new sp4 Symptoms: have improved sp4 Condition: Stable sp4 Diagnosis - Cellulitis of right lower limb sp4 - Right foot and ankle cellulitis, right plantar foot pressure sore, right plantar sp4 foot hemorrhagic blister. Followup: sp4 - With: Private Physician - When: 7 - 10 days - Reason: Recheck today's complaints Discharge Instructions: - Discharge Summary Sheet sp4 - Cellulitis, Adult, [id number] sp4 Forms: - Patient Portal Instructions sp4 Prescriptions: - Cephalexin 500 mg Oral Capsule - take 1 capsule by ORAL route every 6 hours for 10 days; 40 capsule; Refills: 0, sp4 Product Selection Permitted - Bactrim DS 800-160 mg Oral Tablet - take 1 tablet by ORAL route every 12 hours for 14 days; 28 tablet; Refills: 0, sp4 Product Selection Permitted Signatures: Dispatcher [employer] EDBaldemar Guzmán PA PA cp Waits, Jodi, RN RN jw7 Dolores Phipps RN RN pf1 Estuardo Epperson MD MD sp4
[2023-08-14 01:34] VITALS: TEMP 97.9
[2023-08-14 01:38] VITALS: BP 95/68; O2SAT 98
== END 2023-08-14 01:10 | disposition home or self-care (01) ==
LOC: ER 22:48
DX: L03.115 Cellulitis of right lower limb (principal); L89.899 Pressure ulcer of other site, unspecified stage; S90.821A Blister (nonthermal), right foot, initial encounter; Z91.040 Latex allergy status; Z91.048 Other nonmedicinal substance allergy status
CPT/HCPCS: 96365; 85025; 80048; 36415; 80076; 99284; 96366; Q0162; J0696

== ENCOUNTER 2023-09-29 09:45 | Emergency (ER) | payer OTHER ==
--- OUTSIDE RECORDS SUMMARY | 2023-09-29 10:07 | XMS REPORT | Continuity of Care Document ---
:1965 Author Organization [facility] t Address [address] [place] [address] [place] [id number] Care Team Providers Name Role Phone ANAHI CHAVES Primary Care Physician Unavailable Beverly Cartagena Attending Clinician Unavailable TONY DAS Attending Clinician Unavailable Ab Ortega Attending Clinician Tony Das MD Attending Clinician Doctor Unassigned, [place] Attending Clinician Unavailable Ca Gallo Attending Clinician Unavailable Lissy Anderson MA Attending Clinician Unavailable Caprice Landaverde OT Attending Clinician Unavailable Beverly Cartagena MD Attending Clinician Nenita Marshall OT Attending Clinician Unavailable Reji Patterson Attending Clinician Unavailable Jason Bearden Attending Clinician Unavailable DOM RODRIGUEZ Attending Clinician Unavailable Anahi Chaves Admitting Clinician Unavailable Reji Patterson Admitting Clinician Unavailable Jason Bearden Admitting Clinician Unavailable DOM RODRIGUEZ Admitting Clinician Unavailable Payers Payer Name Policy Type Policy Number Effective Date Expiration Date S [facility] [id number] 2023 PPO/POS 00:00:00 [employer] [id number] 2022 OUT OF NETWORK 00:00:00 [facility] [id number] 2021 2023 00:00:00 00:00:00 Problems Condition Condition Condition Status Onset Resolution Last Treating Co mments Source Name Details Category Date Date Treatment Clinician Date Backache Backache Disease Active Unive rs 9-16 ity of 00:00: [place] [facility] Coronary Coronary Disease Active Unive rs arterioscl arterioscl 9-16 it y of erosis erosis 00:00: [place] [facility] 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 9-16 ity of failure failure 00:00: [place] [facility] Disease of Disease of Disease Active U nivers liver liver 9-16 ity of 00:00: [place] [facility] Dyspnea Dyspnea Disease Active Univers 9-16 ity of 00:00: [place] [facility] Edema of Edema of Disease Active Unive rs lower lower 9-16 [place] of [place] Electrocar Electrocar Disease Active U nivers diogram diogram 9-16 ity of abnormal abnormal 00:00: [place] [facility] 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 9-16 it y of lung lung 00:00: [place] [facility] PAD PAD Disease Active 2018-11 Methodi (periphera (periphera 2-10 st l artery l artery 00:00: Hospit a disease) disease) 00 l Stenosis Stenosis Disease Active 2018-11 Metho di of carotid of carotid 2-10 st artery artery 00:00: Hospita 00 l Pulmonary Pulmonary Disease Active 2018- [facility] hypertensi hypertensi 1-10 Ebony kes on on 00:[facility]: [facility] 00 Center Acute Acute Disease Active 2019- [facility] blood loss blood loss 1-10 Ebony kes anemia anemia 00:00: [facility] 00 Center Alcohol Alcohol Disease Active 2018- [facility] Aspiration Aspiration Disease Active 2019- [facility] pneumonia pneumonia - [facility] 00:[facility]: [facility] 00 Center Acute Acute Disease Recurre 2018- [facility] liver liver nce 12-06 [facility] [...] gap gap 12-06 [facility] metabolic metabolic 00:00: [facility] acidosis acidosis 00 Center Gastroesop Gastroesop Disease Active 20180 M ethodi hageal hageal 2 st reflux reflux 00:00: Hospita disease disease 00 l Cavitary Cavitary Disease Active Metho di lesion of lesion of 01-04 lung lung 00:00: Hospita 00 l Hemoptysis Hemoptysis Disease Active [address] 00:00: Hospita 00 l History of History of Disease Active 0 M ethodi tobacco tobacco 01-04 st use use 00:00: Hospita 00 l Chronic Chronic Disease Active Methodi obstructiv obstructiv 2 st e e 00:00: Hospita pulmonary pulmonary 00 l disease disease Septic Septic Disease Active 2016-11 Methodi shock shock 0-29 st 00:00: Hospita 00 l Acute Acute Disease Active 2016-11 Methodi respirator respirator 0-29 st y failure y failure 00:00: Hosp galo 00 l Acute Acute Disease Active 2016-11 Univers hypoxemic hypoxemic 0-29 ity of [place] failure 00 [facility] willie Branch Elevated Elevated Disease Active 2016-11 Unive rs troponin troponin 0-29 ity of 00:00: [place] 00 [facility] Elevated Elevated Disease Active 2016-11 Unive rs troponin troponin 0-29 ity of 00:00: [place] 00 [facility] 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 01:18:16 l disorder disorder Reece n (disorder) (disorder) Active Problem 08/12/2023 [facility] Carotid Carotid Problem Active 2023-08-12 Pr moria bruit bruit 01:18:16 l (finding) (finding) Herm joão Active Problem 08/12/2023 [facility] Cerebrovas Cerebrova Problem Active 2023-08-12 Memoria cular scular 01:18:16 l accident accident Reece n (disorder) (disorder) Active Problem 08/12/2023 [facility] Cervical Cervical Problem Active 2023-08-12 Memoria radiculopa radiculopa 01:18:16 l thy thy Victor Hugo (disorder) (disorder) Active Problem 08/12/2023 [facility] Confusiona Confusion Problem Active 2023-08-12 Memoria l state al state 01:18:16 l (disorder) (disorder) Brendon ann Active Problem 08/12/2023 [facility] Degenerati Problem Active 2023-08-12 M emoria on of Degenerati 01:18:16 l lumbar on of [place] interverte lumbar bral disc interverte (disorder) bral disc (disorder) Active Problem 08/12/2023 [facility] Family Family Problem Active 2023-08-12 [facility] history of history of 01:18:16 l aneurysm aneurysm Reece n of artery of artery (situation (situation ) ) Active Problem 08/12/2023 [facility] Hyperlipid Problem Active 2023-08-12 M emoria emia Hyperlipid 01:18:16 l (disorder) emia Reece n (disorder) Active Problem 08/12/2023 [facility] Hypertensi Problem Active 2023-08-12 M emoria ve Hypertensi 01:18:16 l disorder, ve [place] systemic disorder, arterial systemic (disorder) arterial (disorder) Active Problem 08/12/2023 [facility] Hyponatrem Hyponatre Problem Active 2023-08-12 Memoria ia gloria 01:18:16 l (disorder) (disorder) He rmann Active Problem 08/12/2023 [facility] Left Left Problem Active 2023-08-12 Memor ia carotid carotid 01:18:16 l artery artery [place] stenosis stenosis (disorder) (disorder) Active Problem 08/12/2023 [facility] Memory Memory Problem Active 2023-08-12 Rao caity impairment impairment 01:18:16 l (finding) (finding) Herm joão Active Problem 08/12/2023 [facility] Migraine Migraine Problem Active 2023-08-12 Memoria (disorder) (disorder) 01:18:16 l Active Victor Hugo Problem 08/12/2023 [facility] Muscle Muscle Problem Active 2023-08-12 Rao caity weakness weakness 01:18:16 l of upper of upper Reece n limb limb (finding) (finding) Active Problem 08/12/2023 [facility] Myoclonus Myoclonus Problem Active 2023-08-12 Memoria (finding) (finding) 01:18:16 l Active [place] Problem 08/12/2023 [facility] [place] Postproced Postproce Problem Active 2023-08-12 Memoria ural state dural 01:18:16 l finding state [place] (finding) finding (finding) Active Problem 08/12/2023 [facility] Foot-drop Foot-drop Problem Active 2023-08-12 Memoria (finding) (finding) 01:18:16 l Active [place] Problem 08/12/2023 [facility] [place] No known No known Disease Unive rs active active ity of problems problems [facility] Allergies, Adverse Reactions, Alerts Allergy Allergy Status Severity Reaction(s) Onset Inactive Treating Comm ents Source Name Type Date Date Clinician iodine DA Active [place] [facility] IODINE-RASH/ 06-23 Lanny r BLISTER 00:00: [place] [facility] latex DA Active SV BLISTERS, [facility] RASH 06-23 Clear 00:00: [place] [facility] Iodine Drug Active Rash Univers Allergy 08-14 ity of 00:00: [address] IODINE DRUG Active Rash Univers INGREDI 9-17 ity of 00:00: [place] 00 [facility] latex DA Active SV [facility] 7-12 Clear 00:00: [place] 00 [facility] latex DA Active SV BLISTERS, [facility] RASH 7-12 Clear 00:00: [place] [facility] DYE DRUG Active Unknown-Cmnt Univ ers INGREDI 01-04 ity of 00:00: [place] [facility] Dye Propensi Active Unknown - [...] -IODINE INGREDI 03-31 ity of 00:00: [place] [facility] Betadine Propensi Active Rash Patient Metho di Surgi-Pr ty to 03-[address] ep adverse 00:00: [facility] Hospit a reaction 00 g and l s to rashPatie drug nt reports blisterin g and rash iodine DA Active NM [facility] 8-07 Clear 00:00: [place] 00 [facility] iodine DA Active [place] TOPICAL [facility] IODINE-RASH/ 07-04 Lanny r BLISTER 00:00: [place] 00 [facility] NO KNOWN Drug Active Univers ALLERGIE Class ity of S [facility] iodine iodine Active Memoria topical< topical< l sup>1</s sup>1</s Reece n up> up> Social History Social Habit Start Date Stop Date Quantity Comments Source History of tobacco Cigarette Smoker University of use [facility] Gender identity Universit y of [facility] Sexual orientation [facility] Tobacco use and 2023-07-29 2023-07-29 Smokeless Universit y of exposure 00:00:00 00:00:00 tobacco non-user [facility] History of Social 2023-07-29 2023-07-29 Univers ity of function 00:00:00 00:00:00 [facility] Alcohol intake 2019-11-06 2019-11-06 Current [employer] 00:00:00 00:00:00 non-drinker of Hospital alcohol (finding) Cigarettes smoked 2018-01-19 2018-01-[address] current (pack per 00:00:00 00:00:00 Hospita l day) - Reported Cigarette 2018-01-19 2018-01-19 [employer] pack-years 00:00:00 00:00:00 Hospital Sex Ass[birth year] At [birth year] [facility] 00:00:00 [facility]:00 [facility] Smoking Status Start Date Stop Date Source Tobacco smoking status 2023-06-08 19:29:35 Megan Gay Ex-smoker 2018-01-19 00:00:00 2018-01-19 00:00:00 [facility] Medications Ordered Filled Start Stop Current Ordering Indication Dosage Frequency Signature Comments Components Source Medication Medication Date Date Medication? Clinician (SIG) Name Name tiZANidine Yes 4mg Take 1 Unive rs 4 mg tablet 9-01 tablet by ity of 14:27: mouth. [address] Pitavastati Yes Livalo 2 Un malia n (LIVALO) 9-01 mg tablet ity of 2 mg Tab 14:27: Take 1 [place] 16 tablet Medical every day Branch by oral route. propranolol Yes 1{tbl} Take 1 Un malia -hydrochlor 9-01 tablet by ity of othiazide 14:27: mouth. [place] 40-25 mg 16 Medical per tablet Branch sucralfate Yes 1g Take 1 Unive rs 1 gram 9-01 tablet by ity of tablet 14:27: mouth. [address] topiramate Yes 25mg Take 1 Unive rs 25 mg 9-01 tablet by ity of tablet 14:27: mouth. [address] vortioxetin Yes Trintellix Univers e 9-01 10 mg ity of (TRINTELLIX 14:27: tablet [place] 10 mg Tab 16 TAKE 1 Medica l TABLET BY Branch MOUTH ONCE DAILY zolpidem 5 2023-0 Yes zolpidem 5 U nivers mg tablet 9-01 mg tablet ity o f 14:27: Take 1 [place] 16 tablet Medical every day Branch by oral route. tiZANidine Yes 4mg Take 1 Unive rs 4 mg tablet - tablet by ity of 14:27: mouth. [address] Pitavastati Yes Livalo 2 Un malia n (LIVALO) 07-29 mg tablet ity of 2 mg Tab 14:27: Take 1 [place] 16 tablet Medical every day Branch by oral route. propranolol Yes 1{tbl} Take 1 Un malia -hydrochlor - tablet by ity of othiazide 14:27: mouth. [place] 40-25 16 Medical per tablet Branch sucralfate Yes 1g Take 1 Unive rs 1 gram 07-29 tablet by ity of tablet 14:27: mouth. [address] topiramate Yes 25mg Take 1 Unive rs 25 mg 07-29 tablet by ity of tablet 14:27: mouth. [address] vortioxetin Yes Trintellix Univers e 07-29 10 mg ity of (TRINTELLIX 14:27: [place] 10 mg Tab 16 TAKE 1 Medica l TABLET BY Branch MOUTH ONCE DAILY zolpidem 5 Yes zolpidem 5 U nivers mg tablet 9- mg tablet ity o f 14:27: Take 1 [place] 16 tablet Medical every day Branch by oral route. ALPRAZolam Yes alprazolam U nivers 0.5 mg 07-29 0.5 mg ity of tablet 14:24: tablet [place] 17 Take 1 Medical tablet Branch every day by oral route for 10 days. Dexlansopra Yes Dexilant Un malia zole - 60 mg ity of (DEXILANT) 14:24: capsule, Luis as 60 mg 17 delayed Medical capsule release Branch Take 1 capsule every day by oral route for 56 days. amLODIPine Yes 5mg Take 1 Unive rs 5 mg tablet 07-29 tablet by ity of 14:24: mouth. [address] Branch aspirin 81 Yes aspirin 81 U nivers mg EC 9-01 mg ity of tablet 14:24: tablet,del [place] 17 ayed Medical release Branch Take 1 tablet every day by oral route. enalapril 0 Yes 20mg Take 1 Univer s 20 mg 07-29 tablet by ity of tablet 14:24: mouth [place] [address] every Medical morning. Branch hydrOXYzine Yes 25mg Take 1 Univ ers 25 mg 07-29 tablet by ity of tablet 14:24: mouth. [address] lactulose 0 Yes 30mL 30 mL. Univer s 10 gram/15 07-29 ity of mL solution 14:24: [address] levoFLOXaci Yes Levaquin Un malia n 07-29 500 mg ity of (LEVAQUIN) 14:24: tablet [place] 500 mg 17 Take 1 Medical tablet tablet Branch every 24 hours by oral route. lidocaine 5 Yes lidocaine U nivers % (700 07-29 5 % ity of mg/patch) 14:24: topical [place] patch patch Medical APPLY 1 Branch PATCH BY TRANSDERMA L ROUTE ONCE DAILY (MAY WEAR UP TO 12HOURS.) lisinopriL Yes lisinopril U nivers 5 mg tablet 07-29 5 mg ity of 14:24: tablet [place] [address] Take 1 Medical tablet Branch every day [...] disintegrat 14:24: [place]. [place] 17 Medical Branch Oxycodone Yes oxycodone Uni vers 10 mg Tab 07-29 10 mg ity of 14:24: tablet [place] [address] Take 1 Medical tablet Branch every 6 hours by oral route. proMETHazin Yes promethazi Univers e 25 mg 07-29 ne 25 mg ity of tablet 14:24: tablet [place] [address] Take 1 Medical tablet Branch every 4 hours by oral route as needed. ALPRAZolam Yes alprazolam U nivers 0.5 mg 07-29 0.5 mg ity of tablet 14:24: tablet [place] [address] Take 1 Medical tablet Branch every day by oral route for 10 days. Dexlansopra 2022-0 Yes Dexilant Un malia zole 07-29 60 mg ity of (DEXILANT) 14:24: capsule, Luis as 60 mg 17 delayed Medical capsule release Branch Take 1 capsule every day by oral route for 56 days. amLODIPine 2022-0 Yes 5mg Take 1 Unive rs 5 mg tablet 07-29 tablet by ity of 14:24: mouth. [address] aspirin 81 2022-0 Yes aspirin 81 U nivers mg EC 07-29 mg ity of tablet 14:24: tablet,del [place] 17 ayed Medical release Branch Take 1 tablet every day by oral route. enalapril 2022-0 Yes 20mg Take 1 Univer s 20 mg 07-29 tablet by ity of tablet 14:24: mouth [place] [address] every Medical morning. Branch hydrOXYzine 2022-0 Yes 25mg Take 1 Univ ers 25 mg 07-29 tablet by ity of tablet 14:24: mouth. [address] lactulose 2022-0 Yes 30mL 30 mL. Univer s 10 gram/15 07-29 ity of mL solution 14:24: [address] levoFLOXaci 0 Yes Levaquin Un malia n 07-29 500 mg ity of (LEVAQUIN) 14:24: tablet [place] 500 mg 17 Take 1 Medical tablet tablet Branch every 24 hours by oral route. lidocaine 5 2022-0 Yes lidocaine U nivers % (700 07-29 5 % ity of mg/patch) 14:24: topical [place] patch patch Medical APPLY 1 Branch PATCH BY TRANSDERMA L ROUTE ONCE DAILY (MAY WEAR UP TO 12HOURS.) lisinopriL 2022-0 Yes lisinopril U nivers 5 mg tablet 07-29 5 mg ity of 14:24: tablet [place] [address] Take 1 Medical tablet Branch every day by oral route. morphine ER 0 Yes MS Contin U nivers (MS CONTIN) 07-29 15 mg ity of 15 mg 12 hr 14:24: tablet,ext [place] tablet 17 ended Medical release Branch Take 1 tablet every 8 hours by oral route. ondansetron 2022-0 Yes 4mg Take 1 Univ ers 4 mg 07-29 tablet by ity of disintegrat 14:24: [place]. [place] tablet 17 Medical Branch Oxycodone Yes oxycodone Uni vers 10 mg Tab 07-29 10 mg ity of 14:24: tablet 17 Take 1 Medical tablet [...] tab, 1 Mary nn 00 Refill(s), Pharmacy: [facility] #[id number], 160.02, cm, 06/08/23 14:38:00 CDT, Height, 63.636, kg, 06/08/23 14:38:00 CDT, Weight topiramate Yes = 1 tab, Mem oria 50 mg oral 7-20 PO, BID, # l tablet 21:46: 180 tab, 1 Mary nn 00 Refill(s), Pharmacy: [facility] #[id number], 160.02, cm, 06/08/23 14:38:00 CDT, Height, 63.636, kg, 06/08/23 14:38:00 CDT, Weight LORazepam 1 Yes TAKE 1 OR U nivers mg tablet 2-23 2 TABLETS ity o f 00:00: 30 MINS PRIOR TO Medical IMAGE Branch LORazepam 1 Yes TAKE 1 OR U nivers mg tablet 2-23 2 TABLETS ity o f 00:00: 30 MINS [place] 00 PRIOR TO Medical IMAGE Branch LORazepam 1 Yes TAKE 1 OR U nivers mg tablet 2-23 2 TABLETS ity o f 00:00: 30 MINS 00 PRIOR TO Medical IMAGE Branch BOTOX 200 Yes INJECT 200 Un malia unit 2-21 [...] malia unit 2-21 UNITS ity of 00:00: [facility] INTO THE Branch HEAD EVERY 90 DAYS, TO BE INJECTED IN THE PHYSICIAN' S OFFICE ONAbotulinu 2022-0 Yes See Memori a mtoxinA 200 2-20 Instructio l units 16:55: ns, Bring [place] injection 00 to physician' s office for injection, # 1 ea, 3 Refill(s), Pharmacy: [facility], 160.02, cm, 09/07/22 15:06:00 CDT, Height, 50.511, kg, 09/07/22 15:06:00 CDT, Weight ONAbotulinu 2022-0 Yes See Memori a mtoxinA 200 2-20 Instructio l units 16:55: ns, Bring [place] injection 00 to physician' s office for injection, # 1 ea, 3 Refill(s), Pharmacy: [facility], 160.02, cm, 09/07/22 15:06:00 CDT, Height, 50.511, kg, 09/07/22 15:06:00 CDT, Weight traZODone 2022-0 Yes 50mg Take 50 mg Un malia 50 mg 1-10 by mouth ity of tablet 00:00: at [place] [address] bedtime. Medical Branch traZODone 2022-0 Yes 50mg Take 50 mg Un malia 50 mg 1-10 by mouth ity of tablet 00:00: at [place] [address] bedtime. Medical Branch traZODone 2022-0 Yes 50mg Take 1 Univer s 50 mg 1-10 tablet by ity of tablet 00:00: mouth at [place] [address] bedtime. Medical Branch traZODone 3-0 Yes 50mg Take 1 Univer s 50 mg 1-10 tablet by ity of tablet 00:00: mouth at [place] [address] bedtime. Medical Branch metoprolol 2022-0 Yes 50mg Take 50 mg U nivers tartrate 50 -09 by mouth ity of mg tablet 00:00: in the [place] 00 morning Medical and 50 mg Branch in the evening. metoprolol 2022-0 Yes 50mg Take 50 mg U nivers tartrate 50 1-09 by mouth ity of mg tablet 00:00: in the [address] Medical and 50 mg Branch in the evening. metoprolol 2022-0 Yes 50mg Take 1 Unive rs tartrate 50 1-09 tablet by ity of mg tablet 00:00: mouth in [address] morning Branch and 1 tablet in the evening. metoprolol 2022-0 Yes 50mg Take 1 Unive rs tartrate 50 1-09 tablet by ity of mg tablet 00:00: mouth in [address] and 1 tablet in the evening. trazodone [...] BY ity of capsule 00:00: MOUTH AT [place] [address] BEDTIME Medical NEEDED FOR Branch INSOMNIA temazepam 2021-11 Yes TAKE 1 Univer s 15 mg 1-15 CAPSULE BY ity of capsule 00:00: MOUTH AT [place] 00 BEDTIME Medical NEEDED FOR Branch INSOMNIA temazepam 2021-11 Yes TAKE 1 Univer s 15 mg 1-15 CAPSULE BY ity of capsule 00:00: MOUTH AT [place] 00 BEDTIME Medical NEEDED FOR Branch INSOMNIA temazepam 2021-11 Yes TAKE 1 Univer s 15 mg 1-15 CAPSULE BY ity of capsule 00:00: MOUTH AT [place] 00 BEDTIME Medical NEEDED FOR Branch INSOMNIA SEROquel 25 2021-11 Yes See Memori a mg oral 0-14 Instructio l tablet 20:59: ns, Take 1 Mary nn 00 tab po 1 hour prior to MRI, may repeat q 15 min. if still anxious, # 5 tab, 0 Refill(s), Pharmacy: [facility] #[id number], 160.02, cm, 09/07/22 15:06:00 CDT, Height, 50.511, kg, 09/07/22 15:06:00 CDT, Weight SEROquel 25 2021-11 Yes See Memori a mg oral 0-14 Instructio l tablet 20:59: ns, Take 1 Mary nn 00 tab po 1 hour prior to MRI, may repeat q 15 min. if still anxious, # 5 tab, 0 Refill(s), Pharmacy: [facility] #[id number], 160.02, cm, 09/07/22 15:06:00 CDT, Height, 50.511, [...] 9-16 by mouth. ity of tablet 10:00: [address] Branch topiramate Yes 25mg Take 25 mg U nivers 25 mg 9-16 by mouth. ity of tablet 10:00: [address] vortioxetin Yes Trintellix Univers e 9-16 [...] tablet by ity of othiazide 10:00: mouth. [place] 40-25 mg 41 Medical per tablet Branch sucralfate Yes 1g Take 1 g Uni vers 1 gram 9-16 by mouth. ity of tablet 10:00: [place] [address] Medical Branch topiramate Yes 25mg Take 25 mg U nivers 25 mg 9-16 by mouth. ity of tablet 10:00: [address] vortioxetin Yes Tr[employer] Univers e 9-16 [...] 25 mg ity of tablet 10:00: tablet [place] 41 Take 1 Medical tablet Branch every 4 hours by oral route as needed. propranolol Yes 1{tbl} Take 1 Un malia -hydrochlor 9-16 tablet by ity of othiazide 10:00: mouth. [place] 40-25 mg 41 Medical per tablet Branch sucralfate Yes 1g Take 1 g Uni vers 1 gram 9-16 by mouth. ity of tablet 10:00: [place] [address] Medical Branch topiramate Yes 25mg Take 25 mg U nivers 25 mg 9-16 by mouth. ity of tablet 10:00: [place] [address] Medical Branch vortioxetin Yes Tr[employer]ellix Univers e 9-16 10 mg ity of (TRINTELLIX 10:00: tablet [place] ) 10 mg Tab 41 TAKE 1 Medica l TABLET BY Branch MOUTH ONCE DAILY zolpidem 5 Yes zolpidem 5 U nivers mg tablet 9-16 mg tablet ity o f 10:00: Take 1 [place] 41 tablet Medical every day Branch by oral route. amLODIPine Yes 5mg Take 5 mg Un malia 5 mg tablet 9-16 by mouth. ity of 10:00: [place] [address] Medical Branch aspirin 81 Yes aspirin 81 U nivers mg EC 9-16 mg ity of tablet 10:00: tablet,del [place] [address] ayed Medical release Branch Take 1 tablet every day by oral route. enalapril Yes 1{tbl} Take 1 Univ ers 20 mg 9-16 tablet by ity of tablet 10:00: mouth [place] [address] every Medical morning. Branch hydrOXYzine Yes 25mg Take 25 mg Univers 25 mg 9-16 by mouth. ity of tablet 10:00: [place] [address] Medical Branch lactulose 2022-0 Yes 30mL 30 mL. Univer s 10 gram/15 9-16 ity of mL solution 10:00: [place] [address] Medical Branch levoFLOXaci 2021-0 Yes Levaquin Un malia n 9-16 500 mg ity of (LEVAQUIN) 10:00: tablet [place] 500 mg 40 Take 1 Medical tablet tablet Branch every 24 hours by oral route. lidocaine 5 2021-0 Yes lidocaine U nivers % (700 9-16 5 % ity of mg/patch) 10:00: topical [place] patch 40 patch Medical APPLY 1 Branch PATCH BY TRANSDERMA L ROUTE ONCE DAILY (MAY WEAR UP TO 12HOURS.) lisinopriL 2021-0 Yes lisinopril U nivers 5 mg tablet 9-16 5 mg ity of 10:00: tablet [place] 40 Take 1 Medical tablet Branch every day by oral route. morphine ER 2021-0 Yes MS Contin U nivers (MS CONTIN) 9-16 15 mg ity of 15 mg 12 hr 10:00: tablet,ext [place] tablet 40 ended Medical release Branch Take 1 tablet every 8 hours by oral route. ondansetron 2021-0 Yes 4mg Take 4 mg U nivers 4 mg 9-16 by mouth. ity of disintegrat 10:00: [place] ing tablet 40 Medical Branch Oxycodone 2021-0 Yes oxycodone Uni vers 10 mg Tab 9-16 10 mg ity of 10:00: tablet [place] 40 Take 1 Medical tablet Branch every 6 hours by oral route. amLODIPine 2021-0 Yes 5mg Take 5 mg Un malia 5 mg tablet 9-16 by mouth. ity of 10:00: [place] 40 Medical Branch aspirin 81 2021-0 Yes aspirin 81 U nivers mg EC 9-16 mg ity of tablet 10:00: tablet,del [place] 40 ayed Medical release Branch Take 1 tablet every day by oral route. enalapril 2021-0 Yes 1{tbl} Take 1 Univ ers 20 mg 9-16 tablet by ity of tablet 10:00: mouth [place] 40 every Medical morning. Branch hydrOXYzine 2021-0 Yes 25mg Take 25 mg Univers 25 mg 9-16 by mouth. ity of tablet 10:00: [place] [address] Medical Branch lactulose 2021-0 Yes 30mL 30 mL. Univer s 10 gram/15 9-16 ity of mL solution 10:00: [place] [address] Medical Branch levoFLOXaci 2021-0 Yes Levaquin Un malia n 9-16 500 mg ity of (LEVAQUIN) 10:00: tablet [place] 500 mg 40 Take 1 Medical tablet tablet Branch every 24 hours by oral route. lidocaine 5 2021-0 Yes lidocaine U nivers % (700 9-16 5 % ity of mg/patch) 10:00: topical [place] patch 40 patch Medical APPLY 1 Branch PATCH BY TRANSDERMA L ROUTE ONCE DAILY (MAY WEAR UP TO 12HOURS.) lisinopriL 2021-0 Yes lisinopril U nivers 5 mg tablet [...] every 8 hours by oral route. ondansetron 2021-0 Yes 4mg Take 4 mg U nivers 4 mg 9-16 by mouth. ity of disintegrat 10:00: [place] ing tablet 40 Medical Branch Oxycodone 0 Yes oxycodone Uni vers 10 mg Tab 9-16 10 mg ity of 10:00: tablet [place] 40 Take 1 Medical tablet Branch every 6 hours by oral route. amLODIPine 2021-0 Yes 5mg Take 5 mg Un malia 5 mg tablet 9-16 by mouth. ity of 10:00: [address] aspirin 81 2021-0 Yes aspirin 81 U nivers mg EC 9-16 mg ity of tablet 10:00: tablet,del [place] 40 ayed Medical release Branch Take 1 tablet every day by oral route. enalapril 2021-0 Yes 1{tbl} Take 1 Univ ers 20 mg 9-16 tablet by ity of tablet 10:00: mouth [place] [address] every Medical morning. Branch hydrOXYzine 2021-0 Yes 25mg Take 25 mg [facility] 25 mg 9-16 by mouth. ity of tablet 10:00: [place] [address] Medical Branch lactulose 2021-0 Yes 30mL 30 mL. Univer s 10 gram/15 9-16 ity of mL solution 10:00: [address] levoFLOXaci 2021-0 Yes Levaquin Un malia n 9-16 500 mg ity of (LEVAQUIN) 10:00: tablet [place] 500 mg 40 Take 1 Medical tablet tablet Branch every 24 hours by oral route. lidocaine 5 2021-0 Yes lidocaine U nivers % (700 9-16 5 % ity of mg/patch) 10:00: topical [place] patch 40 patch Medical APPLY 1 Branch PATCH BY TRANSDERMA L ROUTE ONCE DAILY (MAY WEAR UP TO 12HOURS.) lisinopriL 2021-0 Yes lisinopril U nivers 5 mg tablet 9-16 5 mg ity of 10:00: tablet [place] 40 Take 1 Medical tablet Branch every day by oral route. morphine ER 2021-0 Yes MS Contin U nivers (MS CONTIN) 9-16 15 mg ity of 15 mg 12 hr 10:00: tablet,ext [place] tablet 40 ended Medical release Branch Take 1 tablet every 8 hours by oral route. ondansetron 2021-0 Yes 4mg Take 4 mg U nivers 4 mg -16 by mouth. ity of disintegrat 10:00: [place] ing tablet 40 Medical Branch Oxycodone 2021-0 Yes oxycodone Uni vers 10 mg Tab 9-16 10 mg ity of 10:00: tablet [place] 40 Take 1 Medical tablet Branch every 6 hours by oral route. topiramate Yes = 1 tab, Mem oria 50 mg oral 9-13 PO, BID, # l tablet 14:16: 180 tab, 1 Mary nn 00 Refill(s), Pharmacy: [facility] #[id number], 160.02, cm, 01/06/22 9:19:00 [place], Height, 50.455, kg, 01/06/22 9:19:00 [place], Weight topiramate 0 Yes = 1 tab, Mem oria 50 mg oral 9-13 PO, BID, # l tablet 14:16: 180 tab, 1 Mary nn 00 Refill(s), Pharmacy: [facility] #[id number], 160.02, cm, 01/06/22 9:19:00 [place], Height, 50.455, kg, 01/06/22 9:19:00 [place], Weight methocarbam 2021-0 Yes Univer s oL 500 mg 9-06 ity of tablet 00:00: [place] 00 Medical Branch methocarbam 2022-0 Yes Univer s oL 500 mg 9-06 ity of tablet 00:00: Medical Branch methocarbam 2022-0 Yes Univer s oL 500 mg 9-06 ity of tablet 00:00: Medical Branch methocarbam 2022-0 Yes Univer s oL 500 mg 9-06 ity of tablet 00:00: Medical Branch methocarbam 2022-0 Yes Univer s oL 500 mg 9-06 ity of tablet 00:00: Medical Branch topiramate 2-0 Yes = 1 tab, Mem oria 25 mg oral 8-24 PO, l tablet 21:39: Bedtime, # Mary nn 00 30 tab, 4 Refill(s), Pharmacy: [facility] #[id number], 160.02, cm, 01/06/22 9:19:00 [place], Height, 50.455, kg, 01/06/22 9:19:00 [place], Weight topiramate 2021-0 Yes = 1 tab, Mem oria 25 mg oral 8-24 PO, l tablet 21:39: Bedtime, # Mary nn 00 30 tab, 4 Refill(s), Pharmacy: [facility] #[id number], 160.02, cm, 01/06/22 9:19:00 [place], Height, 50.455, kg, 01/06/22 9:19:00 [place], Weight FLUoxetine 2021-0 Yes 80mg Take 80 mg U nivers 40 mg 8-05 by mouth ity of capsule 00:00: in the [place] morning. Medical Branch FLUoxetine 2022-0 Yes 80mg Take 80 mg U nivers 40 mg 8-05 by mouth ity of capsule 00:00: in the [place] morning. Medical Branch FLUoxetine 2022-0 Yes 80mg Take 80 mg U nivers 40 mg 8-05 by mouth ity of capsule 00:00: in the [place] morning. Medical Branch FLUoxetine 2022-0 Yes 80mg Take 2 Unive rs 40 mg 8-05 capsules ity of capsule 00:00: by mouth in the Medical morning. Branch FLUoxetine 2022-0 Yes 80mg Take 2 Unive rs 40 mg 8-05 capsules ity of capsule 00:00: by mouth [place] in the Medical morning. Branch OXcarbazepi 2022-0 Yes 150mg Take 150 U nivers ne 150 mg 7-05 mg by ity of tablet 00:00: mouth at [place] [address] bedtime. Medical Branch OXcarbazepi 2022-0 Yes 150mg Take 150 U nivers ne 150 mg 7-05 mg by ity of tablet 00:00: mouth at [place] [address] bedtime. Medical Branch OXcarbazepi 2022-0 Yes 150mg Take 150 U nivers ne 150 mg 7-05 mg by ity of tablet 00:00: mouth at [place] [address] bedtime. Medical Branch OXcarbazepi 2022-0 Yes 150mg Take 1 Uni vers ne 150 mg 7-05 tablet by ity o f tablet 00:00: mouth at [place] [address] bedtime. Medical Branch OXcarbazepi 2022-0 Yes 150mg Take 1 Uni vers ne 150 mg 7-05 tablet by ity o f tablet 00:00: mouth at [place] [address] bedtime. Medical Branch ondansetron 2022-0 Yes Univer s 4 mg tablet 05-28 ity of 00:00: [place] 00 Medical Branch ondansetron 2022-0 Yes Univer s 4 mg tablet - ity of 00:00: [place] 00 Medical Branch ondansetron 2022-0 Yes Univer s 4 mg tablet 05-28 ity of 00:00: [place] 00 Medical Branch ondansetron 2022-0 Yes Univer s 4 mg tablet - ity of 00:00: [place] 00 Medical Branch ondansetron 2022-0 Yes Univer s 4 mg tablet 05-28 ity of 00:00: [place] 00 Medical Branch atorvastati 2-0 Yes = 1 tab, Me moria n 20 mg 6-13 PO, l oral tablet 19:24: Bedtime, # Victor Hugo 00 30 tab, 3 Refill(s), Pharmacy: [facility] #[id number], 160.02, cm, 01/06/22 9:19:00 [place], Height, 50.455, kg, 01/06/22 9:19:00 [place], Weight atorvastati 2-0 Yes = 1 tab, Me moria n 20 mg 6-13 PO, l oral tablet 19:24: Bedtime, # [place] 00 30 tab, 3 Refill(s), [id number], 160.02, cm, 01/06/22 9:19:00 [place], Height, 50.455, kg, 01/06/22 9:19:00 [place], Weight OXcarbazepi 2021-0 Yes = 1 tab, Me moria ne 150 mg 3-03 PO, l oral tablet 14:43: Bedtime, # Victor Hugo 00 30 tab, 2 Refill(s), Pharmacy: [facility] #[id number], 160.02, cm, 01/06/22 9:19:00 CA[place], Height, 50.455, kg, 01/06/22 9:19:00 [place], Weight OXcarbazepi 2021-0 Yes = 1 tab, Me moria ne 150 mg 3-03 PO, l oral tablet 14:43: Bedtime, # [place] 00 30 tab, 2 Refill(s), [id number], 160.02, cm, 01/06/22 9:19:00 [place], Height, 50.455, kg, 01/06/22 9:19:00 [place], Weight Buprenor[place] 2021-[address] 1 Mem [...] 00 EVERY film EIGHT HOURS DIRECTED atorvastati 2020- Yes = 1 tab, Me moria n 20 mg 2-23 PO, Daily, l oral tablet 19:34: # 30 tab, H ermann 00 0 Refill(s), Pharmacy: [facility], 160.02, cm, 11/19/21 13:00:00 [place], Height, 49.091, kg, 11/19/21 13:00:00 [place], Weight topiramate 2020-11 Yes = 1 tab, Mem oria 50 mg oral 2-23 PO, BID, # l tablet 19:34: 180 tab, 2 Mary nn 00 Refill(s), Pharmacy: [facility], 160.02, cm, 11/19/21 13:00:00 [place], Height, 49.091, kg, 11/19/21 13:00:00 [place], Weight atorvastati 2020-11 Yes = 1 tab, Me moria n 20 mg 2-23 PO, Daily, l oral tablet 19:34: # 30 tab, H ermann 00 0 Refill(s), Pharmacy: [facility], 160.02, cm, 11/19/21 13:00:00 [place], Height, 49.091, kg, 11/19/21 13:00:00 [place], Weight topiramate 2020-11 Yes = 1 tab, Mem oria 50 mg oral 2-23 PO, BID, # l tablet 19:34: 180 tab, 2 Mary nn 00 Refill(s), Pharmacy: [facility], 160.02, cm, 11/19/21 13:00:00 [place], Height, 49.091, kg, 11/19/21 13:00:00 [place], Weight ALPRAZolam Yes alprazolam U nivers 0.5 [...] mg tablet -17 by mouth. ity of 10:31: 37 Medical Branch zolpidem 0 Yes 5mg Take 5 mg Univ ers 12.5 mg CR 9-17 by mouth. ity of tablet 10:31: [address] ALPRAZolam 0 Yes alprazolam U nivers 0.5 mg 9-17 0.5 mg ity of tablet 10:31: tablet [place] 37 Take 1 Medical tablet Branch every [...] 600 mg ity of tablet 10:31: tablet [place] [address] Take 1 Medical tablet 3 Branch times a day by oral route. tiZANidine 0 Yes 4mg Take 4 mg Un malia 4 mg tablet 9-17 by mouth. ity of 10:31: [address] zolpidem 2020-0 Yes 5mg Take 5 mg Univ ers 12.5 mg CR 9-17 by mouth. ity of tablet 10:31: [address] ALPRAZolam 0 Yes alprazolam U nivers 0.5 mg 9-17 0.5 mg ity of tablet 10:31: tablet [place] [address] Take 1 Medical tablet Branch every day [...] 600 mg ity of tablet 10:31: tablet [place] [address] Take 1 Medical tablet 3 Branch times a day by oral route. tiZANidine 2020-0 Yes 4mg Take 4 mg Un malia 4 mg tablet 9-17 by mouth. ity of 10:31: [address] zolpidem 0 Yes 5mg Take 5 mg Univ ers 12.5 mg CR 9-17 by mouth. ity of tablet 10:31: [address] ALPRAZolam 0 Yes alprazolam U nivers 0.5 mg 9-17 0.5 mg ity of tablet 10:31: tablet [place] 37 Take 1 Medical tablet Branch every [...] tablet 9-17 by mouth. ity of 10:31: [place] [address] Medical Branch ALPRAZolam Yes alprazolam U nivers 0.5 mg 9-17 0.5 mg ity of tablet 10:31: tablet [place] 37 Take 1 Medical tablet Branch every [...] by mouth. ity of 10:31: Medical Branch ALPRAZolam 0 Yes alprazolam [...] 600 mg ity of tablet 10:31: tablet [place] 37 Take 1 Medical tablet 3 Branch times a day by oral route. tiZANidine 2020-0 Yes 4mg Take 4 mg Un malia 4 mg tablet 9-17 by mouth. ity of 10:31: [place] [address] Medical Branch ALPRAZolam 2020-0 Yes alprazolam U nivers 0.5 mg 9-17 0.5 mg ity of tablet 10:31: tablet [place] 37 Take 1 Medical tablet Branch every [...] 600 mg ity of tablet 10:31: tablet [place] 37 Take 1 Medical tablet 3 Branch times a day by oral route. tiZANidine 2020-0 Yes 4mg Take 4 mg Un malia 4 mg tablet 9-17 by mouth. ity of 10:31: [place] [address] Medical Branch gabapentin 2020-0 Yes gabapentin U nivers 600 mg 9-17 600 mg ity of tablet 10:31: tablet [place] 37 Take 1 Medical tablet 3 Branch times a day by oral route. gabapentin 2020-0 Yes gabapentin U nivers 600 mg 9-17 600 mg ity of tablet 10:31: tablet [place] 37 Take 1 Medical tablet 3 Branch times a day by oral route. ALPRAZolam 2020-0 Yes alprazolam U nivers 0.5 mg 9-17 0.5 mg ity of tablet 10:31: tablet [place] 37 Take 1 Medical tablet Branch every [...] 600 mg ity of tablet 10:31: tablet [place] 37 Take 1 Medical tablet 3 Branch times a day by oral route. tiZANidine 2020-0 Yes 4mg Take 4 mg Un malia 4 mg tablet 9-17 by mouth. ity of 10:31: [address] zolpidem 2020-0 Yes 5mg Take 5 mg Univ ers 12.5 mg CR 9-17 by mouth. ity of tablet 10:31: [address] ALPRAZolam 2020-0 Yes alprazolam U nivers 0.5 mg 9-17 0.5 mg ity of tablet 10:31: tablet [place] [address] Take 1 Medical tablet Branch every day [...] 600 mg ity of tablet 10:31: tablet [place] [address] Take 1 Medical tablet 3 Branch times a day by oral route. tiZANidine 0 Yes 4mg Take 4 mg Un malia 4 mg tablet 9-17 by mouth. ity of 10:31: [address] zolpidem 2020-0 Yes 5mg Take 5 mg Univ ers 12.5 mg CR 9-17 by mouth. ity of tablet 10:31: [address] ALPRAZolam 0 Yes alprazolam U nivers 0.5 mg 9-17 0.5 mg ity of tablet 10:31: tablet [place] [address] Take 1 Medical tablet Branch every day [...] 600 mg ity of tablet 10:31: tablet [place] [address] Take 1 Medical tablet 3 Branch times a day by oral route. tiZANidine 2020-0 Yes 4mg Take 4 mg Un malia 4 mg tablet 9-17 by mouth. ity of 10:31: [address] zolpidem 2020-0 Yes 5mg Take 5 mg Univ ers 12.5 mg CR 9-17 by mouth. ity of tablet 10:31: [address] atorvastati 2020- Yes 10mg Take 10 mg Univers n 10 mg 7-25 by mouth ity of tablet 00:00: every [place] 00 evening. Medical Branch atorvastati 0 Yes 10mg Take 10 mg Univers n 10 mg 7-25 by mouth ity of tablet 00:00: every [place] 00 evening. Medical Branch atorvastati 0 Yes 10mg Take 10 mg Univers n 10 mg 7-25 by mouth ity of tablet 00:00: every [place] 00 evening. Medical Branch atorvastati 0 Yes 10mg Take 10 mg Univers n 10 mg 7-25 by mouth ity of tablet 00:00: every [place] 00 evening. Medical Branch atorvastati Yes 10mg Take 10 mg Univers n 10 mg 7-25 by mouth ity of tablet 00:00: every [place] 00 evening. Medical Branch atorvastati Yes 10mg Take 10 mg Univers n 10 mg 7-25 by mouth ity of tablet 00:00: every [place] 00 evening. Medical Branch atorvastati Yes 10mg Take 10 mg Univers n 10 mg 7-25 by mouth ity of tablet 00:00: every [place] 00 evening. Medical Branch atorvastati Yes 10mg Take 1 Univ ers n 10 mg 7-25 tablet by ity of tablet 00:00: mouth [place] 00 every Medical evening. Branch atorvastati Yes 10mg Take 1 Univ ers n 10 mg 7-25 tablet by ity of tablet 00:00: mouth [place] 00 every Medical evening. Branch atorvastati Yes 10mg Take 10 mg Univers n 10 mg 7-25 by mouth ity of tablet 00:00: every [place] 00 evening. Medical Branch atorvastati Yes 10mg Take 10 mg Univers n 10 mg 7-25 by mouth ity of tablet 00:00: every [place] 00 evening. Medical Branch atorvastati 0 Yes 10mg Take 10 mg Univers n 10 mg 7-25 by mouth ity of tablet 00:00: every [place] 00 evening. Medical Branch atorvastati Yes 20 mg = 2 M emoria n 10 mg 1-25 tab, PO, l oral tablet 21:02: Daily, # He r[place] 00 60 tab, 1 Refill(s), Pharmacy: [facility] #[id number], 162.56, cm, 12/22/20 14:47:00 [place], Height, 66.818, kg, 12/22/20 14:47:00 [place], Weight atorvastati 2020-0 Yes 20 mg = 2 M emoria n 10 mg 1-25 tab, PO, l oral tablet 21:02: Daily, # Brendon rmjoão 60 tab, 1 Refill(s), Pharmacy: [facility] #[id number], 162.56, cm, 12/22/20 14:47:00 [place], Height, 66.818, kg, 12/22/20 14:47:00 [place], Weight topiramate 2020-0 Yes 50 mg = 1 Me moria 50 mg oral 9-03 tab, PO, l tablet 18:52: BID, # 60 Reece n 00 tab, 3 Refill(s), Pharmacy: [facility] #[id number], 162.56, cm, 07/31/20 13:42:00 CDT, Height, 56.818, kg, 07/31/20 13:42:00 CDT, Weight topiramate 2020-0 Yes 50 mg = 1 Me moria 50 mg oral 9-03 tab, PO, l tablet 18:52: BID, # 60 Reece n 00 tab, 3 Refill(s), Pharmacy: [facility] #[id number], 162.56, cm, 07/31/20 13:42:00 CDT, Height, 56.818, kg, 07/31/20 13:42:00 CDT, Weight topiramate 2020-0 Yes 25 mg = 1 Me moria 25 MG Oral 4-15 tab, PO, l Tablet 20:04: BID, # 60 Reece n [Topamax] 00 tab, 2 Refill(s), Pharmacy: [facility] #[id number] topiramate 2020-0 Yes 25 mg = 1 Me moria 25 MG Oral 4-15 tab, PO, l Tablet 20:04: BID, # 60 Reece n [Topamax] 00 tab, 2 Refill(s), Pharmacy: [facility] #[id number] Morphine 2020-0 Yes 15 mg, PO, Mem oria 2-25 Q12H, 0 l 19:30: Refill(s) [place] 00 Morphine 2020-0 Yes 15 mg, PO, Mem oria 2-25 Q12H, 0 l 19:30: Refill(s) [place] 00 topiramate 2020-0 Yes 25 mg = 1 Me moria 25 MG Oral 2-14 tab, PO, l Tablet 23:50: BID, # 60 Reece n [Topamax] 00 tab, 2 Refill(s), [id number] topiramate 2020-0 Yes 25 mg = 1 Me moria 25 MG Oral 2-14 tab, PO, l Tablet 23:50: BID, # 60 Reece n [Topamax] 00 tab, 2 Refill(s), [id number] Aspirin 81 2020-0 Yes 81 mg = [...] mg = 1 Me moria mg tablet, -09 tab, PO, l enteric 23:31: Daily, # Reece n coated 00 90 tab, 3 Refill(s) oxcarbazepi 2020-0 Yes 150 mg = 1 Memoria ne 150 MG 1-09 tab, PO, l Oral Tablet 23:05: Bedtime, # Victor Hugo [Trileptal] 00 30 tab, 3 Refill(s), [id number] oxcarbazepi 2020-0 Yes 150 mg = 1 Memoria ne 150 MG -09 tab, PO, l Oral Tablet 23:05: Bedtime, # Victor [place] [Trileptal] 00 30 tab, 3 Refill(s), [id number] atorvastati 2018-11 Yes 40 mg = 1 M emoria n 40 mg 2-11 tab, PO, l oral tablet 23:32: Daily, # Brendon monet 39 30 tab, 2 Refill(s), Pharmacy: [facility] #[id number] atorvastati 2018-11 Yes 40 mg = 1 M emoria n 40 mg 2-11 tab, PO, l oral tablet 23:32: Daily, # Brendon monet 39 30 tab, 2 Refill(s), Pharmacy: [facility] #[id number] dexlansopra 2018-11 Yes 60mg Take 60 mg [...] MG tablet 11:55: Hospita 03 l sucralfate 2019-1 Yes 1g Take 1 g Met hodi [...] MG tablet 11:55: [facility]ospita 03 l sucralfate 2019 Yes 1g Take 1 g Met hodi [...] gram 11:55: Hospita tablet 03 l dexlansopra 2019 Yes 60mg Take 60 mg [facility] zole [...] for l sleep. gabapentin 2018-11 Yes 600mg Q.61120666 Take 600 [facility] (NEURONTIN) 2-10 [id number] mg by s t 600 mg 11:46: [...] for l sleep. gabapentin 2018-11 Yes 600mg Q.21065648 Take 600 [facility] (NEURONTIN) 2-10 [id number] mg by s t 600 mg 11:46: [...] for l sleep. gabapentin 2018-11 Yes 600mg Q.85248093 Take 600 [facility] (NEURONTIN) 2-10 [id number] mg by s t 600 mg 11:46: [...] for l sleep. gabapentin 2018-11 Yes 600mg Q.03361556 Take 600 [facility] (NEURONTIN) 2-10 [id number] mg by s t 600 mg 11:46: [...] for l sleep. gabapentin 2018-11 Yes 600mg Q.52277474 Take 600 [facility] (NEURONTIN) 2-10 [id number] mg by s t 600 mg 11:46: [...] for l sleep. gabapentin 2018-11 Yes 600mg Q.65299611 Take 600 [facility] (NEURONTIN) 2-10 [id number] mg by s t 600 mg 11:46: [...] for l sleep. gabapentin 2018-11 Yes 600mg Q.25289301 Take 600 [facility] (NEURONTIN) 2-10 [id number] mg by s t 600 mg 11:46: [...] for l sleep. gabapentin 2018-11 Yes 600mg Q.29283780 Take 600 [facility] (NEURONTIN) 2-10 [id number] mg by s t 600 mg 11:46: [...] for l sleep. gabapentin 2018-11 Yes 600mg Q.47795501 Take 600 [facility] (NEURONTIN) 2-10 [id number] mg by s t 600 mg 11:46: [...] for l sleep. gabapentin 2018-11 Yes 600mg Q.35917415 Take 600 [facility] (NEURONTIN) 2-10 [id number] mg by s t 600 mg 11:46: [...] for l sleep. gabapentin 2018-11 Yes 600mg Q.07085680 Take 600 [facility] (NEURONTIN) 2-10 [id number] mg by s t 600 mg 11:46: [...] for l sleep. gabapentin 2018-11 Yes 600mg Q.57033047 Take 600 [facility] (NEURONTIN) 2-10 [id number] mg by s t 600 mg 11:46: [...] for l sleep. gabapentin 2018-11 Yes 600mg Q.63246413 Take 600 [facility] (NEURONTIN) 2-10 [id number] mg by s t 600 mg 11:46: [...] for l sleep. gabapentin 2018-11 Yes 600mg Q.15180739 Take 600 [facility] (NEURONTIN) 2-10 [id number] mg by s t 600 mg 11:46: [...] for l sleep. gabapentin 2018-11 Yes 600mg Q.42066915 Take 600 [facility] (NEURONTIN) 2-10 [id number] mg by s t 600 mg 11:46: [...] hours off . gabapentin 2018-11 Yes 600mg Q.02780382 Take [address] [facility] (NEURONTIN) 1-18 [id number] mg by L ukes 600 MG 17:29: [...] hours off . gabapentin 2018-11 Yes 600mg Q.68373339 Take [address] [facility] (NEURONTIN) 1-18 [id number] mg by L ukes 600 MG 17:29: [...] hours off . gabapentin 2018-11 Yes 600mg Q.67616706 Take [address] [facility] (NEURONTIN) 1-18 [id number] mg by L ukes 600 MG 17:29: [...] MG tablet 17:29: every Medical 52 morning. [place] dexlansopra 2018-11 Yes 60mg QD Take [address] [facility] zole 60 mg 1-18 by mouth [facility] 17:29: daily. [facility] 52 Center topiramate 2018-11 Yes 25mg Q.5D Take [address] (TOPAMAX) 1-18 by mouth 2 [facility] 25 MG 17:29: (two) Medical tablet 52 times Center daily. sucralfate 2019-1 Yes 1g Q.25D Take 1 g [facility] [...] hours off . gabapentin 2018-11 Yes 600mg Q.28547754 Take [address] [facility] [address] (NEURONTIN) 1-18 [id number] mg by L ukes 600 MG 17:29: [...] hours off . gabapentin 2018-11 Yes 600mg Q.60813534 Take [address] [facility] (NEURONTIN) 1-18 [id number] mg by L ukes 600 MG 17:29: [...] hours off . gabapentin 2018-11 Yes 600mg Q.90305094 Take [address] [facility] [address] (NEURONTIN) 1-18 [id number] mg by L ukes 600 MG 17:29: [...] hours off . gabapentin 2018-11 Yes 600mg Q.86065164 Take [address] [facility] (NEURONTIN) 1-18 [id number] mg by L ukes 600 MG 17:29: [...] hours off . gabapentin 2018-11 Yes 600mg Q.68034128 Take [address] [facility] (NEURONTIN) 1-18 [id number] mg by L ukes 600 MG 17:29: [...] MG tablet 17:29: every Medical 52 morning. [place] dexlansopra 2018-11 Yes 60mg QD Take 60 [...] hours off . gabapentin 2018-11 Yes 600mg Q.39682216 Take [address] [facility] (NEURONTIN) 1-18 [id number] mg by L ukes 600 MG 17:29: [...] MG tablet 17:29: every Medical 52 morning. [place] dexlansopra 2018-11 Yes 60mg QD Take 60 [...] MG tablet 17:29: daily. Medica l 52 [place] hydrOXYzine 2018-11 Yes 25mg Q.5D Take [address] [facility] (ATARAX) 25 1-18 by mouth 2 Eboyn kes MG tablet 17:29: (two) Medical 52 [...] hours off . gabapentin 2018-11 Yes 600mg Q.34660239 Take [address] [facility] (NEURONTIN) 1-18 [id number] mg by L ukes 600 MG 17:29: [...] St (ATARAX) 25 1-18 by mouth 2 Beony kes MG tablet 17:29: (two) Medical 52 [...] dical tablet 52 (twelve) Center hours. lidocaine 2018- Yes 3{patch Q24H Place [address] (LIDODERM) 1-18 } patches [facility] 5 % patch 17:29: onto the Medi willie 52 skin daily Center 12 hours on 12 hours off . gabapentin 2018-11 Yes 600mg Q.31171815 Take [address] [facility] (NEURONTIN) 1-18 [id number] mg by L ukes 600 MG 17:29: [...] MG tablet 17:29: every Medical 52 morning. [place] dexlansopra 2018-11 Yes 60mg QD Take 60 [...] dical tablet 52 (twelve) Center hours. lidocaine 2018- Yes 3{patch Q24H Place [address] (LIDODERM) 1-18 } patches [facility] 5 % patch 17:29: onto the Medi [place]ie 52 skin daily Center 12 hours on 12 hours off . gabapentin 2018-11 Yes 600mg Q.41841135 Take [address] (NEURONTIN) 1-18 [id number] mg by L ukes 600 MG 17:29: 3D mouth 3 Medical tablet 52 (three) Center times daily. zolpidem 2018-11 Yes 5mg QD Take [address] [facility] (AMBIEN) 5 1-18 by mouth [facility] MG tablet 17:29: nightly Medic al 52 Every Center night at bedtime . propranolol 2019- Yes 1{tbl} QD Take [address] -hydrochlor 1-18 tablet by Kimberly es othiazide 17:29: mouth Medical (INDERIDE) [address] 40-25 mg not listed per tablet on patient medication sheet . amLODIPine 2018-11 Yes 5mg QD Take [address] (NORVASC) 5 1-18 by mouth Luke [facility] MG tablet 17:29: every Medical 52 morning. [place] dexlansopra 2019-1 Yes 60mg QD Take 60 mg [facility] [...] hours off . gabapentin 2018-11 Yes 600mg Q.51466163 Take [address] (NEURONTIN) 1-18 [id number] mg by L ukes 600 MG 17:29: [...] hours off . gabapentin 2018-11 Yes 600mg Q.83857232 Take [address] (NEURONTIN) 1-18 [id number] mg by L ukes 600 MG 17:29: [...] MG tablet 17:29: every Medical 52 morning. [place] dexlansopra 2018-11 Yes 60mg QD Take 60 [...] I St (CARAFATE) 1-18 by mouth 4 Kibmerly es 1 gram 17:29: (four) Medical tablet [...] hours off . gabapentin 2018-11 Yes 600mg Q.76725966 Take [address] (NEURONTIN) 1-18 [id number] mg by L ukes 600 MG 17:29: [...] MG tablet 17:29: every Medical 52 morning. [place] dexlansopra 2018-11 Yes 60mg QD Take 60 [...] Kimberly es 20 gram/30 00:00: total) by Pr dical mL solution 00 mouth 2 Cente [...] IN OU BID st 0.1 % 00:00: [facility] solution FLUoxetine 2018-11 Yes [...] st MG capsule 00:00: daily. Hospi l amLODIPine 2018-11 Yes 5mg Take 5 [...] n [Topamax] 02 tab, 2 Refill(s), Pharmacy: [facility] #[id number] topiramate 2018-11 Yes 25 mg = 1 Me moria 25 MG Oral 0-23 tab, PO, l Tablet 18:40: BID, # 60 Reece n [Topamax] 02 tab, 2 Refill(s), Pharmacy: [facility] #[id number] topiramate Yes 25 mg = 1 Me moria 25 MG Oral 8-21 tab, PO, l Tablet 15:45: Bedtime, # Mary nn [Topamax] 00 30 tab, 2 Refill(s), Pharmacy: [facility] #[id number] topiramate Yes 25 mg = 1 Me moria 25 MG Oral 8-21 tab, PO, l Tablet 15:45: Bedtime, # Mary nn [Topamax] 00 30 tab, 2 Refill(s), Pharmacy: [facility] #[id number] atorvastati 2019-0 Yes PO, Daily, Memoria n 8-21 0 l 15:28: Refill(s) Amlodipine 2019-0 Yes PO, Daily, M emoria 8-21 0 l 15:28: Refill(s) amLODIPine 2019-0 Yes PO, Daily, M emoria 8-21 0 l 15:28: Refill(s) atorvastati 20190 Yes PO, Daily, Memoria n 8-21 0 l 15:28: Refill(s) Amlodipine 2019-0 Yes PO, Daily, M emoria 8-21 0 l 15:28: Refill(s) amLODIPine 20190 Yes PO, Daily, M emoria 8-21 0 l 15:28: Refill(s) Zanaflex 2019 Yes 4 mg, PO, Rao caity 8-21 Q8H, 0 l 15:00: Refill(s) oxyCODONE Yes 10 mg = 1 Mem oria 10 mg oral 8-21 tab, PO, l tablet, 15:00: Q6H, 0 00 Refill(s) release gabapentin 0 Yes 600 [...] 15:00: Q8H, 0 [Zofran] 00 Refill(s) Hydroxyzine 2019 Yes 25 [...] 20190 Yes 4 mg, PO, Rao caity - Q8H, 0 l 15:00: Refill(s) oxyCODONE 0 [...] 07-18 Daily, 0 l 15:00: Refill(s) lidocaine Yes See [...] Refill(s) gabapentin Yes 600 mg, Rao caity 07-18 PO, TID, 0 l 15:00: Refill(s) Ambien Yes 5 mg, PO, Memori a 07-18 Bedtime, 0 l 15:00: Refill(s) atorvastati Yes [...] 00 daily. l tablet Immunizations Ordered Filled Date Status Comments Source Immunization Name Immunization Name SARS-COV-2 COVID-19 2021-04-06 Completed [facility] VACCINE 00:00:00 [facility] SARS-COV-2 COVID-19 2021-04-06 Completed Unive rsity of [facility] VACCINE 00:00:00 [facility] SARS-COV-2 COVID-19 2021-04-06 Completed Unive [...] [place] [facility] V[facility] SARS-COV-2 COVID-19 2021-03-12 Completed Unive rsity of MODERNA 12+ YRS 00:00:00 [place] [facility] SARS-COV-2 COVID-19 2021-03-12 Completed Unive rsity of MODERNA 12+ YRS 00:00:00 [place] [facility] ical VACCINE Branch SARS-COV-2 COVID-19 2021-03-12 Completed Unive rsity of MODERNA 12+ YRS 00:00:00 [place] [facility] SARS-COV-2 COVID-19 2021-03-12 Completed Unive rsity of MODERNA 12+ YRS 00:00:00 [place] [facility] ical VACCINE Branch SARS-COV-2 COVID-19 2021-03-12 Completed Unive rsity of MODERNA 12+ YRS 00:00:00 [facility] ical VACCINE Branch SARS-COV-2 COVID-19 2021-03-12 Completed Unive rsity of MODERNA VACCINE 00:00:00 [facility] ical Branch SARS-COV-2 COVID-19 2021-03-12 Completed Unive rsity of MODERNA VACCINE 00:00:00 [facility] Branch Influenza Virus 2020-11-28 Completed Universit y of Vaccine (3+ yrs) 00:00:00 [facility] Influenza Virus 2020-11-28 Completed Universit y of Vaccine (3+ yrs) 00:00:00 [facility] Influenza Virus 2020-11-28 Completed Universit y of Vaccine (3+ yrs) 00:00:00 [facility] Branch Influenza Virus 2020-11-28 Completed Universit y of Vaccine (3+ yrs) 00:00:00 [facility] Branch Influenza Virus 2020-11-28 Completed Universit y of Vaccine (3+ yrs) 00:00:00 [facility] Influenza Virus 2020-11-28 Completed Universit y of Vaccine (3+ yrs) 00:00:00 [facility] Influenza Virus 2020-11-28 Completed Universit y of Vaccine (3+ yrs) 00:00:00 [facility] Influenza Virus 2020-11-28 Completed Universit y of Vaccine (3+ yrs) 00:00:00 [facility] Branch Influenza Virus 2020-11-28 Completed Universit y of Vaccine (3+ yrs) 00:00:00 [facility] Branch Influenza Virus 2020-11-28 Completed Universit y of Vaccine (3+ yrs) 00:00:00 [facility] Influenza Virus 2020-11-28 Completed Universit y of Vaccine (3+ yrs) 00:00:00 [facility] Branch Influenza Virus 2020-11-28 Completed Universit y of Vaccine (3+ yrs) 00:00:00 [facility] Branch FLUCELVAX QUAD PF 2017-10-[address] 00:00[facility]00 Hospital Pneumococcal 2017-10-06 Completed [facility] 13-Valent 00:00:00 Hospi iqra FLUCELVAX QUAD PF 2017-10-[address] 00:00:00 Hospital Pneumococcal 2017-10-06 Completed [facility] Con[facility] 13-[facility]ent 00:00:00 Hospi iqra FLUCELVAX QUAD PF 2017-10-[address] 00:00:00 Hospital Pneumococcal 2017-10-06 Completed [facility] Con[facility] 13-Valent 00:00:00 Hospi iqra FLUCELVAX QUAD PF 2017-10-[address] 00:00:00 Hospital Pneumococcal 2017-10-06 Completed [facility] Con[facility] 13-Valent 00:00:00 Hospi iqra FLUCELVAX QUAD PF 2017-10-[address] 00:00:00 Hospital Pneumococcal 2017-10-06 Completed [facility] Con[facility] 13-Valent 00:00:00 Hospi iqra FLUCELVAX QUAD PF 2017-10-[address] 00:00:00 Hospital Pneumococcal 2017-10-06 Completed [facility] 13-Valent 00:00:00 Hospi iqra FLUCELVAX QUAD PF 2017-10-[address] 00:00:00 Hospital Pneumococcal 2017-10-06 Completed [facility] 13-Valent 00:00:00 Hospi iqra FLUCELVAX QUAD PF 2017-10-[address] 00:00:00 Hospital Pneumococcal 2017-10-06 Completed [facility] 13-[facility]ent 00:00:00 Hospi iqra FLUCELVAX QUAD PF 2017-10-[address] 00:00:00 Hospital Pneumococcal 2017-10-06 Completed [facility] 13-[facility]ent 00:00:00 Hospi iqra FLUCELVAX QUAD PF 2017-10-[address] 00:00:00 Hospital Pneumococcal 2017-10-06 Completed [facility] 13-Valent 00:00:00 Hospi iqra FLUCELVAX QUAD PF 2017-10-[address] 00:00:00 Hospital Pneumococcal 2017-10-06 Completed [facility] 13-[facility]ent 00:00:00 Hospi iqra FLUCELVAX QUAD PF 2017-10-[address] 00:00:00 Hospital Pneumococcal 2017-10-06 Completed [facility] 13-[facility]ent 00:00:00 Hospi iqra FLUCELVAX QUAD PF 2017-10-[address] 00:00:00 Hospital Pneumococcal 2017-10-06 Completed [facility] 13-Valent 00:00:00 Hospi iqra FLUCELVAX QUAD PF 2017-10-[address] 00:00:00 Hospital Pneumococcal 2017-10-06 Completed [facility] 13-Valent 00:00:00 [facility] Influenza Virus 2017-10-06 Completed Universit y of Vaccine Quad IM, 00:00:00 [facility] dical Preserv and ABX Branch Free 2-64 YRS Pneumococcal 13 2017-10-06 Completed Universit y of Conjugate, PCV13 00:00:00 [facility] dical (Prevnar 13) Branch Influenza Virus 2017-10-06 Completed Universit y of Vaccine Quad IM, 00:00:00 [facility] dical Preserv and ABX Branch Free 2-64 YRS Pneumococcal 13 2017-10-06 Completed Universit y of Conjugate, PCV13 00:00:00 [facility] dical (Prevnar 13) Branch Influenza Virus 2017-10-06 Completed Universit y of Vaccine Quad IM, 00:00:00 [facility] dical Preserv and ABX Branch Free 6 MO-64 YRS Pneumococcal 13 2017-10-06 Completed Universit y of Conjugate, PCV13 00:00:00 [place] [facility] (Prevnar 13) Branch Influenza Virus 2017-10-06 Completed Universit y of Vaccine Quad IM, 00:00:00 [facility] dical Preserv and ABX Branch Free 6 MO-64 YRS Pneumococcal 13 2017-10-06 Completed Universit y of Conjugate, PCV13 00:00:00 [facility] dical (Prevnar 13) Branch Influenza Virus 2017-10-06 [...] Universit y of Vaccine Quad IM, 00:00:00 [facility] dical Preserv and ABX Branch Free 2-64 YRS Pneumococcal 13 2017-10-06 Completed Universit y of Conjugate, PCV13 00:00:00 [facility] dical (Prevnar 13) Branch FLUCELVAX QUAD PF Unknown Completed [facility] Pneumococcal Unknown Completed [facility] 13-[facility] Hospi iqra [id number] Unknown Completed [facility] [place] [id number]< sup>1</sup> [id number] Unknown Completed [facility] [id number]< sup>1</sup> Vital Signs Vital Name Observation Time Observation Value Comments Source Systolic blood 2023-07-29 19:37:00 115 mm[Hg] Univer sity of [facility] Diastolic blood 2023-07-29 19:37:00 73 mm[Hg] Unive rsity of [facility] Heart rate 2023-07-29 19:21:00 58 /min Universi ty [facility] Respiratory rate 2023-07-29 19:21:00 18 /min [facility] Body height 2023-07-29 19:21:00 162.6 cm Universi ty [facility] Body weight 2023-07-29 19:21[facility] BMI 2023-07-29 19:21:00 24.55 kg/m2 Universi ty [facility] Systolic blood 2021-08-14 15:39:00 130 mm[Hg] Univer sity of [facility] Diastolic blood 2021-08-14 15:39:00 81 mm[Hg] Unive rsity of [facility] Heart rate 2021-08-14 15:39:00 76 /min Universi ty [facility] Body temperature 2021-08-14 15:39:00 37 Amy Univ ersity of [facility] Respiratory rate 2021-08-14 15:39:00 18 /min [facility] Body height 2021-08-14 15:39:00 162.6 cm Universi ty [facility] Body weight 2021-08-14 15:39:00 53.933 kg [facility] BMI 2021-08-14 15:39:00 20.41 kg/m2 [facility] Oxygen saturation in 2021-08-14 15:39:00 100 /min [facility] Arterial blood by [facility] Pulse oximetry Branch Systolic (mm Hg) 2023-06-08 19:29:00 [facility] Diastolic (mm Hg) 2023-06-08 19:29:00 [facility] [place] Heart Rate 2023-06-08 19:29:00 [facility] Height 2023-06-08 19:29:00 5 [ft_i] [facility] Weight 2023-06-08 19:29:00 [facility] BMI Calculated 2023-06-08 19:29:00 [facility] [place] Systolic (mm Hg) 2022-09-07 19:49:00 [facility] Diastolic (mm Hg) 2022-09-07 19:49:00 [facility] Heart Rate 2022-09-07 19:49:00 [facility] Height 2022-09-07 19:49:00 5 [ft_i] [facility] Weight 2022-09-07 19:49:00 [facility] BMI Calculated 2022-09-07 19:49:00 [facility] Systolic (mm Hg) 2022-01-06 15:19:00 [facility] [place] Diastolic (mm Hg) 2022-01-06 15:19:00 [facility] [place] Heart Rate 2022-01-06 15:19:00 [facility] Respitory Rate 2022-01-06 15:19:00 [facility] [place] Height 2022-01-06 15:19:00 160.02 cm [facility] Weight 2022-01-06 15:19:00 [facility] BMI Calculated 2022-01-06 15:19:00 [facility] Systolic blood 2021-12-16 15:00:00 138 mm[Hg] [facility] Diastolic blood 2021-12-16 15:00:00 82 mm[Hg] [facility] pressure Systolic (mm Hg) 2021-12-10 22:22:00 [facility] Diastolic (mm Hg) 2021-12-10 22:22:00 [facility] [place] Heart Rate 2021-12-10 22:22:00 [facility] Respitory Rate 2021-12-10 22:22:00 [facility] [place] Height 2021-12-10 22:22:00 160.02 cm [facility] Weight 2021-12-10 22:22:00 [facility] BMI Calculated 2021-12-10 22:22:00 [facility] Systolic (mm Hg) 2021-11-19 19:00:00 [facility] Diastolic (mm Hg) 2021-11-19 19:00:00 [facility] Heart Rate 2021-11-19 19:00:00 [facility] Respitory Rate 2021-11-19 19:00:00 [facility] [place] Height 2021-11-19 19:00:00 160.02 cm [facility] Weight 2021-11-19 19:00:00 [facility] BMI Calculated 2021-11-19 19:00:00 [facility] Heart rate 2021-11-18 16:04:00 80 /min [facility] Systolic (mm Hg) 2021-04-08 14:16:00 [facility] Diastolic (mm Hg) 2021-04-08 14:16:00 [facility] Heart Rate 2021-04-08 14:16:00 [facility] Respitory Rate 2021-04-08 14:16:00 [facility] [place] Height 2021-04-08 14:16:00 162.56 cm [facility] Weight 2021-04-08 14:16:00 [facility] BMI Calculated 2021-04-08 14:16:00 [facility] Systolic (mm Hg) 2020-12-22 20:47:00 [facility] Diastolic (mm Hg) 2020-12-22 20:47:00 [facility] Height 2020-12-22 20:47:00 162.56 cm [facility] Weight 2020-12-22 20:47:00 [facility] BMI Calculated 2020-12-22 20:47:00 [facility] [place] Systolic (mm Hg) 2020-07-31 18:42:00 [facility] Diastolic (mm Hg) 2020-07-31 18:42:00 [facility] Heart Rate 2020-07-31 18:42:00 [facility] Respitory Rate 2020-07-31 18:42:00 [facility] Height 2020-07-31 18:42:00 162.56 cm [facility] Weight 2020-07-31 18:42:00 [facility] BMI Calculated 2020-07-31 18:42:00 [facility] Temperature Oral (F) 2020-07-31 18:42:00 96.9 F [facility] Systolic (mm Hg) 2020-01-22 17:49:00 [facility] [place] Diastolic (mm Hg) 2020-01-22 17:49:00 [facility] [place] Heart Rate 2020-01-22 17:49:00 [facility] Respitory Rate 2020-01-22 17:49:00 [facility] Height 2020-01-22 17:49:00 162.56 cm [facility] Weight 2020-01-22 17:49:00 [facility] BMI Calculated 2020-01-22 17:49:00 [facility] Systolic (mm Hg) 2020-01-11 21:53:00 [facility] [place] Diastolic (mm Hg) 2020-01-11 21:53:00 [facility] Heart Rate 2020-01-11 21:53:00 [facility] Height 2020-01-11 21:53:00 162.56 cm [facility] Weight 2020-01-11 21:53:00 [facility] BMI Calculated 2020-01-11 21:53:00 [facility] Systolic (mm Hg) 2019-12-06 22:16:00 [facility] [place] Diastolic (mm Hg) 2019-12-06 22:16:00 [facility] Heart Rate 2019-12-06 22:16:00 [facility] Respitory Rate 2019-12-06 22:16:00 [facility] Height 2019-12-06 22:16:00 162.56 cm [facility] Weight 2019-12-06 22:16:00 [facility] BMI Calculated 2019-12-06 22:16:00 [facility] Height 2019-11-09 17:41:00 162.56 cm [facility] Weight 2019-11-09 17:41:00 [facility] BMI Calculated 2019-11-09 17:41:00 [facility] Systolic (mm Hg) 2019-09-19 18:12:00 [facility] [place] Diastolic (mm Hg) 2019-09-19 18:12:00 [facility] Heart Rate 2019-09-19 18:12:00 [facility] Respitory Rate 2019-09-19 18:12:00 [facility] Height 2019-09-19 18:12:00 162.56 cm [facility] Weight 2019-09-19 18:12:00 [facility] BMI Calculated 2019-09-19 18:12:00 [facility] Systolic (mm Hg) 2019-08-23 19:05:00 [facility] Diastolic (mm Hg) 2019-08-23 19:05:00 [facility] Heart Rate 2019-08-23 19:05:00 [facility] Respitory Rate 2019-08-23 19:05:00 [facility] Height 2019-08-23 19:05:00 162.56 cm [facility] Weight 2019-08-23 19:05:00 [facility] BMI Calculated 2019-08-23 19:05:00 [facility] Systolic (mm Hg) 2019-07-18 14:57:00 [facility] Diastolic (mm Hg) 2019-07-18 14:57:00 [facility] Heart Rate 2019-07-18 14:57:00 [facility] Respitory Rate 2019-07-18 14:57:00 [facility] Height 2019-07-18 14:57:00 162.56 cm [facility] Weight 2019-07-18 14:57:00 [facility] BMI Calculated 2019-07-18 14:57:00 [facility] Procedures Procedure Date / Time Performing Clinician Source Performed [place] [facility] 2023-08-08 18:49:00 [facility] muscle(s); muscle(s) innervated by facial, trigeminal, cervical spinal and accessory nerves, bilateral (eg, for chronic migraine) ASSIGNMENT OF BENEFITS 2023-07-29 18:27:00 Doctor Unassigned, [place] [facility] Name Medical Branch EXTERNAL PROVIDER RECORDS 2022-03-08 05:01:00 Doctor Unassigned, [facility] EXTERNAL MAMMOGRAM 2021-08-31 13:00:00 Doctor Unassigned, Jeronimo soto [facility] Arthroplasty [facility] Laminectomy [facility] Plan of Care Planned Activity Planned Date Details Comments Source Future Scheduled 2024-10-[address] [facility] 00:[facility]:00 (procedure) [code = [facility] [id number]] Future Scheduled 2024-10-[address] [facility] 00:00:00 (procedure) [code = [facility] [id number]] Future Scheduled 2024-10-[address] [facility] Test 00:00:00 (procedure) [code = [facility] [id number]] Future Scheduled 2024-10-[address] [facility] Test 00:00:00 (procedure) [code = [facility] [id number]] Future Scheduled 2023-09-23 Screening for [facility] Test 05:29:08 malignant neoplasm of colon (procedure) [code = 121007977] Future Scheduled 2023-09-23 Hepatitis C screening [facility] Test 05:29:08 (procedure) [code = 999646788] Future Scheduled 2023-09-23 Screening for [facility] Test 05:29:08 malignant neoplasm of cervix (procedure) [code = 402006861] Future Scheduled 2023-09-23 BREAST CANCER [facility] Test 05:29:08 SCREENING [code = BREAST CANCER SCREENING] Future Scheduled 2023-09-23 Screening for [facility] Test 05:29:08 malignant neoplasm of colon (procedure) [code = 376699648] Future Scheduled 2023-09-23 SHINGLES VACCINES (1 [facility] Test 05:29:08 of 2) [code = SHINGLES VACCINES (1 of 2)] Future Scheduled 2023-09-23 Pneumococcal Vaccine: [facility] Test 05:29:08 Pediatrics (0 to 5 Years) and At-Risk Patients (6 to 64 Years) (2 - PPSV23 or PCV20) [code = Pneumococcal Vaccine: Pediatrics (0 to 5 Years) and At-Risk Patients (6 to 64 Years) (2 - PPSV23 or PCV20)] Future Scheduled 2023-09-23 Screening for [facility] Test 05:29:08 malignant neoplasm of colon (procedure) [code = 587420138] Future Scheduled 2023-09-23 Screening for [facility] Test 05:29:08 malignant neoplasm of colon (procedure) [code = 428539012] Future Scheduled 2023-09-23 COVID-19 VACCINE (3 - [facility] Test 05:29:08 season) [code = COVID-19 VACCINE (3 - season)] Future Scheduled 2023-09-23 INFLUENZA VACCINE (#1) [facility] Test 05:29:08 [code = INFLUENZA VACCINE (#1)] Future Scheduled 2023-09-23 Screening for [facility] Test 05:29:08 malignant neoplasm of colon (procedure) [code = 270523418] Future Scheduled 2023-09-23 HEPATITIS B VACCINES Met [facility] [place] Test 05:29:08 (1 of 3 - 3-dose series) [code = HEPATITIS B VACCINES (1 of 3 - 3-dose series)] Future Scheduled 2023-07-29 Screening for [facility] Test 13:28:11 malignant neoplasm of colon (procedure) [code = 004841994] Future Scheduled 2023-07-29 HEPATITIS B VACCINES Met [facility] [place] Test 13:28:11 (1 of 3 - 3-dose series) [code = HEPATITIS B VACCINES (1 of 3 - 3-dose series)] Future Scheduled 2023-07-29 Screening for [facility] Test 13:28:11 malignant neoplasm of colon (procedure) [code = 181579399] Future Scheduled 2023-07-29 Hepatitis C screening [facility] Test 13:28:11 (procedure) [code = 171383964] Future Scheduled 2023-07-29 Screening for [facility] Test 13:28:11 malignant neoplasm of cervix (procedure) [code = 182799698] Future Scheduled 2023-07-29 BREAST CANCER [facility] Test 13:28:11 SCREENING [code = BREAST CANCER SCREENING] Future Scheduled 2023-07-29 Screening for [facility] Test 13:28:11 malignant neoplasm of colon (procedure) [code = 881084285] Future Scheduled 2023-07-29 SHINGLES VACCINES (1 Met [facility] Test 13:28:11 of 2) [code = SHINGLES VACCINES (1 of 2)] Future Scheduled 2023-07-29 Pneumococcal Vaccine: [facility] Test 13:28:11 Pediatrics (0 to 5 Years) and At-Risk Patients (6 to 64 Years) (2 - PPSV23 if available, else PCV20) [code = Pneumococcal Vaccine: Pediatrics (0 to 5 Years) and At-Risk Patients (6 to 64 Years) (2 - PPSV23 if available, else PCV20)] Future Scheduled 2023-07-29 Screening for [facility] Test 13:28:11 malignant neoplasm of colon (procedure) [code = 752307359] Future Scheduled 2023-07-29 Screening for [facility] Test 13:28:11 malignant neoplasm of colon (procedure) [code = 341235326] Future Scheduled 2023-07-29 COVID-19 VACCINE (3 - Me [facility] Test 13:28:11 Moderna series) [code = COVID-19 VACCINE (3 - Moderna series)] Future Scheduled 2023-07-29 INFLUENZA VACCINE (#1) [facility] Test 13:28:11 [code = INFLUENZA VACCINE (#1)] Future Scheduled 2023-05-13 Screening for [facility] Test 19:30:19 malignant neoplasm of colon (procedure) [code = 301737062] Future Scheduled 2023-05-13 HEPATITIS B VACCINES Met [facility] [place] Test 19:30:19 (1 of 3 - 3-dose series) [code = HEPATITIS B VACCINES (1 of 3 - 3-dose series)] Future Scheduled 2023-05-13 Screening for [facility] Test 19:30:19 malignant neoplasm of colon (procedure) [code = 845597954] Future Scheduled 2023-05-13 Hepatitis C screening [facility] Test 19:30:19 (procedure) [code = 297896835] Future Scheduled 2023-05-13 Screening for [facility] Test 19:30:19 malignant neoplasm of cervix (procedure) [code = 975279501] Future Scheduled 2023-05-13 BREAST CANCER [facility] Test 19:30:19 SCREENING [code = BREAST CANCER SCREENING] Future Scheduled 2023-05-13 Screening for [facility] Test 19:30:19 malignant neoplasm of colon (procedure) [code = 472836052] Future Scheduled 2023-05-13 SHINGLES VACCINES (1 Met [facility] Test 19:30:19 of 2) [code = SHINGLES VACCINES (1 of 2)] Future Scheduled 2023-05-13 Pneumococcal Vaccine: [facility] Test 19:30:19 Pediatrics (0 to 5 Years) and At-Risk Patients (6 to 64 Years) (2 - PPSV23 if available, else PCV20) [code = Pneumococcal Vaccine: Pediatrics (0 to 5 Years) and At-Risk Patients (6 to 64 Years) (2 - PPSV23 if available, else PCV20)] Future Scheduled 2023-05-13 Screening for [facility] Test 19:30:19 malignant neoplasm of colon (procedure) [code = 470450649] Future Scheduled 2023-05-13 Screening for [facility] Test 19:30:19 malignant neoplasm of colon (procedure) [code = 091712740] Future Scheduled 2023-05-13 COVID-19 VACCINE (3 - [facility] Test 19:30:19 Moderna series) [code = COVID-19 VACCINE (3 - Moderna series)] Future Scheduled 2023-05-13 INFLUENZA VACCINE [facility] Hospital Test 19:30:19 [code = INFLUENZA VACCINE] Future Scheduled 2023-05-13 Screening for [facility] Test 19:30:19 malignant neoplasm of colon (procedure) [code = 524816763] Future Scheduled 2023-05-13 HEPATITIS B VACCINES Met [facility] Test 19:30:19 (1 of 3 - 3-dose series) [code = HEPATITIS B VACCINES (1 of 3 - 3-dose series)] Future Scheduled 2023-05-13 Screening for [facility] Test 19:30:19 malignant neoplasm of colon (procedure) [code = 244040333] Future Scheduled 2023-05-13 Hepatitis C screening [facility] Test 19:30:19 (procedure) [code = 162329879] Future Scheduled 2023-05-13 Screening for [facility] Test 19:30:19 malignant neoplasm of cervix (procedure) [code = 546934259] Future Scheduled 2023-05-13 BREAST CANCER [facility] Test 19:30:19 SCREENING [code = BREAST CANCER SCREENING] Future Scheduled 2023-05-13 Screening for [facility] Test 19:30:19 malignant neoplasm of colon (procedure) [code = 967961198] Future Scheduled 2023-05-13 SHINGLES VACCINES ([address] [facility] Test 19:30:19 of 2) [code = SHINGLES VACCINES (1 of 2)] Future Scheduled 2023-05-13 Pneumococcal Vaccine: [facility] Test 19:30:19 Pediatrics (0 to 5 Years) and At-Risk Patients (6 to 64 Years) (2 - PPSV23 if available, else PCV20) [code = Pneumococcal Vaccine: Pediatrics (0 to 5 Years) and At-Risk Patients (6 to 64 Years) (2 - PPSV23 if available, else PCV20)] Future Scheduled 2023-05-13 Screening for [facility] Test 19:30:19 malignant neoplasm of colon (procedure) [code = 660290395] Future Scheduled 2023-05-13 Screening for [facility] Test 19:30:19 malignant neoplasm of colon (procedure) [code = 622149140] Future Scheduled 2023-05-13 COVID-19 VACCINE (3 - [facility] Test 19:30:19 Moderna series) [code = COVID-19 VACCINE (3 - Moderna series)] Future Scheduled 2023-05-13 INFLUENZA VACCINE Method [facility] Test 19:30:19 [code = INFLUENZA VACCINE] Future Scheduled 2023-03-25 HEPATITIS B VACCINES Met [facility] Test 04:08:08 (1 of 3 - 3-dose series) [code = HEPATITIS B VACCINES (1 of 3 - 3-dose series)] Future Scheduled 2023-03-25 Hepatitis C screening [facility] Test 04:08:08 (procedure) [code = 379628671] Future Scheduled 2023-03-25 Screening for [facility] Test 04:08:08 malignant neoplasm of cervix (procedure) [code = 419146967] Future Scheduled 2023-03-25 BREAST CANCER [facility] Test 04:08:08 SCREENING [code = BREAST CANCER SCREENING] Future Scheduled 2023-03-25 COLONOSCOPY SCREENING [facility] Test 04:08:08 [code = COLONOSCOPY SCREENING] Future Scheduled 2023-03-25 SHINGLES VACCINES (1 Met [facility] Test 04:08:08 of 2) [code = SHINGLES VACCINES (1 of 2)] Future Scheduled 2023-03-25 Pneumococcal Vaccine: [facility] [facility] 04:08:08 Pediatrics (0 to 5 Years) and At-Risk Patients (6 to 64 Years) (2 - PPSV23 if available, else PCV20) [code = Pneumococcal Vaccine: Pediatrics (0 to 5 Years) and At-Risk Patients (6 to 64 Years) (2 - PPSV23 if available, else PCV20)] Future Scheduled 2023-03-25 COVID-19 VACCINE (3 - [facility] 04:08:08 Booster for Moderna series) [code = COVID-19 VACCINE (3 - Booster for Moderna series)] Future Scheduled 2023-03-25 INFLUENZA VACCINE Method [facility] Test 04:08:08 [code = INFLUENZA VACCINE] Future Scheduled 2022-11-20 HEPATITIS B VACCINES Met [facility] Test 05:39:40 (1 of 3 - 3-dose series) [code = HEPATITIS B VACCINES (1 of 3 - 3-dose series)] Future Scheduled 2022-11-20 Hepatitis C screening [facility] 05:39:40 (procedure) [code = 844189129] Future Scheduled 2022-11-20 Screening for [facility] Test 05:39:40 malignant neoplasm of cervix (procedure) [code = 445334570] Future Scheduled 2022-11-20 BREAST CANCER [facility] Test 05:39:40 SCREENING [code = BREAST CANCER SCREENING] Future Scheduled 2022-11-20 COLONOSCOPY SCREENING [facility] 05:39:40 [code = COLONOSCOPY SCREENING] Future Scheduled 2022-11-20 SHINGLES VACCINES (1 Met [facility] Test 05:39:40 of 2) [code = SHINGLES VACCINES (1 of 2)] Future Scheduled 2022-11-20 Pneumococcal Vaccine: [facility] 05:39:40 Pediatrics (0 to 5 Years) and At-Risk Patients (6 to 64 Years) (2 - PPSV23 if available, else PCV20) [code = Pneumococcal Vaccine: Pediatrics (0 to 5 Years) and At-Risk Patients (6 to 64 Years) (2 - PPSV23 if available, else PCV20)] Future Scheduled 2022-11-20 COVID-19 VACCINE (3 - [facility] 05:39:40 Booster for Moderna series) [code = COVID-19 VACCINE (3 - Booster for Moderna series)] Future Scheduled 2022-11-20 INFLUENZA VACCINE Method [facility] Test 05:39:40 [code = INFLUENZA VACCINE] Future Scheduled 2022-11-20 HEPATITIS B VACCINES Met [facility] Test 05:39:40 (1 of 3 - 3-dose series) [code = HEPATITIS B VACCINES (1 of 3 - 3-dose series)] Future Scheduled 2022-11-20 Hepatitis C screening [facility] 05:39:40 (procedure) [code = [id number]] Future Scheduled 2022-11-20 Screening for [facility] Test 05:39:40 malignant neoplasm of cervix (procedure) [code = [id number]] Future Scheduled 2022-11-20 BREAST CANCER [facility] Test 05:39:40 SCREENING [code = BREAST CANCER SCREENING] Future Scheduled 2022-11-20 COLONOSCOPY SCREENING [facility] 05:39:40 [code = COLONOSCOPY SCREENING] Future Scheduled 2022-11-20 SHINGLES VACCINES (1 Met [facility] Test 05:39:40 of 2) [code = SHINGLES VACCINES (1 of 2)] Future Scheduled 2022-11-20 Pneumococcal Vaccine: [facility] 05:39:40 Pediatrics (0 to 5 Years) and At-Risk Patients (6 to 64 Years) (2 - PPSV23 if available, else PCV20) [code = Pneumococcal Vaccine: Pediatrics (0 to 5 Years) and At-Risk Patients (6 to 64 Years) (2 - PPSV23 if available, else PCV20)] Future Scheduled 2022-11-20 COVID-19 VACCINE (3 - [facility] 05:39:40 Booster for Moderna series) [code = COVID-19 VACCINE (3 - Booster for Moderna series)] Future Scheduled 2022-11-20 INFLUENZA VACCINE Method [facility] Test 05:39:40 [code = INFLUENZA VACCINE] Future Scheduled 2022-11-20 HEPATITIS B VACCINES Met [facility] Test 05:39:40 (1 of 3 - 3-dose series) [code = HEPATITIS B VACCINES (1 of 3 - 3-dose series)] Future Scheduled 2022-11-20 Hepatitis C screening [facility] 05:39:40 (procedure) [code = [id number]] Future Scheduled 2022-11-20 Screening for [facility] Test 05:39:40 malignant neoplasm of cervix (procedure) [code = 181567809] Future Scheduled 2022-11-20 BREAST CANCER [facility] Test 05:39:40 SCREENING [code = BREAST CANCER SCREENING] Future Scheduled 2022-11-20 COLONOSCOPY SCREENING [facility] 05:39:40 [code = COLONOSCOPY SCREENING] Future Scheduled 2022-11-20 SHINGLES VACCINES (1 Met [facility] Test 05:39:40 of 2) [code = SHINGLES VACCINES (1 of 2)] Future Scheduled 2022-11-20 Pneumococcal Vaccine: [facility] 05:39:40 Pediatrics (0 to 5 Years) and At-Risk Patients (6 to 64 Years) (2 - PPSV23 if available, else PCV20) [code = Pneumococcal Vaccine: Pediatrics (0 to 5 Years) and At-Risk Patients (6 to 64 Years) (2 - PPSV23 if available, else PCV20)] Future Scheduled 2022-11-20 COVID-19 VACCINE (3 - [facility] 05:39:40 Booster for Moderna series) [code = COVID-19 VACCINE (3 - Booster for Moderna series)] Future Scheduled 2022-11-20 INFLUENZA VACCINE Method [facility] Test 05:39:40 [code = INFLUENZA VACCINE] Future Scheduled 2022-10-02 HEPATITIS B VACCINES Met [facility] Test 08:41:32 (1 of 3 - 3-dose series) [code = HEPATITIS B VACCINES (1 of 3 - 3-dose series)] Future Scheduled 2022-10-02 Hepatitis C screening [facility] 08:41:32 (procedure) [code = [id number]] Future Scheduled 2022-10-02 Screening for [facility] Test 08:41:32 malignant neoplasm of cervix (procedure) [code = 178660406] Future Scheduled 2022-10-02 BREAST CANCER [facility] Test 08:41:32 SCREENING [code = BREAST CANCER SCREENING] Future Scheduled 2022-10-02 COLONOSCOPY SCREENING [facility] 08:41:32 [code = COLONOSCOPY SCREENING] Future Scheduled 2022-10-02 SHINGLES VACCINES (1 Met [facility] Test 08:41:32 of 2) [code = SHINGLES VACCINES (1 of 2)] Future Scheduled 2022-10-02 Pneumococcal Vaccine: [facility] 08:41:32 Pediatrics (0 to 5 Years) and At-Risk Patients (6 to 64 Years) (2 - PPSV23 if available, else PCV20) [code = Pneumococcal Vaccine: Pediatrics (0 to 5 Years) and At-Risk Patients (6 to 64 Years) (2 - PPSV23 if available, else PCV20)] Future Scheduled 2022-10-02 COVID-19 VACCINE (3 - [facility] 08:41:32 Booster for Moderna series) [code = COVID-19 VACCINE (3 - Booster for Moderna series)] Future Scheduled 2022-10-02 INFLUENZA VACCINE Method [facility] Test 08:41:32 [code = INFLUENZA VACCINE] Future Scheduled 2022-10-02 HEPATITIS B VACCINES Met [facility] Test 08:41:32 (1 of 3 - 3-dose series) [code = HEPATITIS B VACCINES (1 of 3 - 3-dose series)] Future Scheduled 2022-10-02 Hepatitis C screening [facility] 08:41:32 (procedure) [code = [id number]] Future Scheduled 2022-10-02 Screening for [facility] Test 08:41:32 malignant neoplasm of cervix (procedure) [code = 913992312] Future Scheduled 2022-10-02 BREAST CANCER [facility] Test 08:41:32 SCREENING [code = BREAST CANCER SCREENING] Future Scheduled 2022-10-02 COLONOSCOPY SCREENING [facility] 08:41:32 [code = COLONOSCOPY SCREENING] Future Scheduled 2022-10-02 SHINGLES VACCINES (1 Met [facility] Test 08:41:32 of 2) [code = SHINGLES VACCINES (1 of 2)] Future Scheduled 2022-10-02 Pneumococcal Vaccine: [facility] 08:41:32 Pediatrics (0 to 5 Years) and At-Risk Patients (6 to 64 Years) (2 - PPSV23 if available, else PCV20) [code = Pneumococcal Vaccine: Pediatrics (0 to 5 Years) and At-Risk Patients (6 to 64 Years) (2 - PPSV23 if available, else PCV20)] Future Scheduled 2022-10-02 COVID-19 VACCINE (3 - [facility] 08:41:32 Booster for Moderna series) [code = COVID-19 VACCINE (3 - Booster for Moderna series)] Future Scheduled 2022-10-02 INFLUENZA VACCINE Method [facility] Test 08:41:32 [code = INFLUENZA VACCINE] Future Scheduled 2022-10-02 HEPATITIS B VACCINES Met [facility] Test 08:41:32 (1 of 3 - 3-dose series) [code = HEPATITIS B VACCINES (1 of 3 - 3-dose series)] Future Scheduled 2022-10-02 Hepatitis C screening [facility] 08:41:32 (procedure) [code = 111306346] Future Scheduled 2022-10-02 Screening for [facility] Test 08:41:32 malignant neoplasm of cervix (procedure) [code = 955994459] Future Scheduled 2022-10-02 BREAST CANCER [facility] Test 08:41:32 SCREENING [code = BREAST CANCER SCREENING] Future Scheduled 2022-10-02 COLONOSCOPY SCREENING [facility] 08:41:32 [code = COLONOSCOPY SCREENING] Future Scheduled 2022-10-02 SHINGLES VACCINES (1 Met [facility] Test 08:41:32 of 2) [code = SHINGLES VACCINES (1 of 2)] Future Scheduled 2022-10-02 Pneumococcal Vaccine: [facility] 08:41:32 Pediatrics (0 to 5 Years) and At-Risk Patients (6 to 64 Years) (2 - PPSV23 if available, else PCV20) [code = Pneumococcal Vaccine: Pediatrics (0 to 5 Years) and At-Risk Patients (6 to 64 Years) (2 - PPSV23 if available, else PCV20)] Future Scheduled 2022-10-02 COVID-19 VACCINE (3 - [facility] 08:41:32 Booster for Moderna series) [code = COVID-19 VACCINE (3 - Booster for Moderna series)] Future Scheduled 2022-10-02 INFLUENZA VACCINE Method [facility] Test 08:41:32 [code = INFLUENZA VACCINE] Future Scheduled 2022-10-02 HEPATITIS B VACCINES Met [facility] Test 08:41:32 (1 of 3 - 3-dose series) [code = HEPATITIS B VACCINES (1 of 3 - 3-dose series)] Future Scheduled 2022-10-02 Hepatitis C screening [facility] 08:41:32 (procedure) [code = 578701543] Future Scheduled 2022-10-02 Screening for [facility] Test 08:41:32 malignant neoplasm of cervix (procedure) [code = 760484801] Future Scheduled 2022-10-02 BREAST CANCER [facility] Test 08:41:32 SCREENING [code = BREAST CANCER SCREENING] Future Scheduled 2022-10-02 COLONOSCOPY SCREENING [facility] 08:41:32 [code = COLONOSCOPY SCREENING] Future Scheduled 2022-10-02 SHINGLES VACCINES (1 Met [facility] Test 08:41:32 of 2) [code = SHINGLES VACCINES (1 of 2)] Future Scheduled 2022-10-02 Pneumococcal Vaccine: [facility] 08:41:32 Pediatrics (0 to 5 Years) and At-Risk Patients (6 to 64 Years) (2 - PPSV23 if available, else PCV20) [code = Pneumococcal Vaccine: Pediatrics (0 to 5 Years) and At-Risk Patients (6 to 64 Years) (2 - PPSV23 if available, else PCV20)] Future Scheduled 2022-10-02 COVID-19 VACCINE (3 - [facility] 08:41:32 Booster for Moderna series) [code = COVID-19 VACCINE (3 - Booster for Moderna series)] Future Scheduled 2022-10-02 INFLUENZA VACCINE Method [facility] Test 08:41:32 [code = INFLUENZA VACCINE] Future Scheduled 2022-09-11 HEPATITIS B VACCINES Met [facility] Test 06:10:07 (1 of 3 - 3-dose series) [code = HEPATITIS B VACCINES (1 of 3 - 3-dose series)] Future Scheduled 2022-09-11 Hepatitis C screening [facility] 06:10:07 (procedure) [code = 549605567] Future Scheduled 2022-09-11 Screening for [facility] Test 06:10:07 malignant neoplasm of cervix (procedure) [code = 589279321] Future Scheduled 2022-09-11 BREAST CANCER [facility] Test 06:10:07 SCREENING [code = BREAST CANCER SCREENING] Future Scheduled 2022-09-11 COLONOSCOPY SCREENING [facility] 06:10:07 [code = COLONOSCOPY SCREENING] Future Scheduled 2022-09-11 SHINGLES VACCINES (1 Met [facility] Test 06:10:07 of 2) [code = SHINGLES VACCINES (1 of 2)] Future Scheduled 2022-09-11 Pneumococcal Vaccine: [facility] 06:10:07 Pediatrics (0 to 5 Years) and At-Risk Patients (6 to 64 Years) (2 - PPSV23 if available, else PCV20) [code = Pneumococcal Vaccine: Pediatrics (0 to 5 Years) and At-Risk Patients (6 to 64 Years) (2 - PPSV23 if available, else PCV20)] Future Scheduled 2022-09-11 COVID-19 VACCINE (3 - [facility] 06:10:07 Booster for Moderna series) [code = COVID-19 VACCINE (3 - Booster for Moderna series)] Future Scheduled 2022-09-11 INFLUENZA VACCINE Method [facility] Test 06:10:07 [code = INFLUENZA VACCINE] Future Scheduled 2022-09-06 HEPATITIS B VACCINES Met [facility] Test 14:11:02 (1 of 3 - 3-dose series) [code = HEPATITIS B VACCINES (1 of 3 - 3-dose series)] Future Scheduled 2022-09-06 Hepatitis C screening [facility] 14:11:02 (procedure) [code = 955927238] Future Scheduled 2022-09-06 Screening for [facility] Test 14:11:02 malignant neoplasm of cervix (procedure) [code = 104417839] Future Scheduled 2022-09-06 BREAST CANCER [facility] Test 14:11:02 SCREENING [code = BREAST CANCER SCREENING] Future Scheduled 2022-09-06 COLONOSCOPY SCREENING [facility] 14:11:02 [code = COLONOSCOPY SCREENING] Future Scheduled 2022-09-06 SHINGLES VACCINES (1 Met [facility] Test 14:11:02 of 2) [code = SHINGLES VACCINES (1 of 2)] Future Scheduled 2022-09-06 Pneumococcal Vaccine: [facility] 14:11:02 Pediatrics (0 to 5 Years) and At-Risk Patients (6 to 64 Years) (2 - PPSV23 or PCV20) [code = Pneumococcal Vaccine: Pediatrics (0 to 5 Years) and At-Risk Patients (6 to 64 Years) (2 - PPSV23 or PCV20)] Future Scheduled 2022-09-06 COVID-19 VACCINE (3 - [facility] 14:11:02 Booster for Moderna series) [code = COVID-19 VACCINE (3 - Booster for Moderna series)] Future Scheduled 2022-09-06 INFLUENZA VACCINE Method [facility] Test 14:11:02 [code = INFLUENZA VACCINE] Future Scheduled 2022-09-06 HEPATITIS B VACCINES Met [facility] Test 14:11:02 (1 of 3 - 3-dose series) [code = HEPATITIS B VACCINES (1 of 3 - 3-dose series)] Future Scheduled 2022-09-06 Hepatitis C screening [facility] 14:11:02 (procedure) [code = 562585596] Future Scheduled 2022-09-06 Screening for [facility] Test 14:11:02 malignant neoplasm of cervix (procedure) [code = 483975066] Future Scheduled 2022-09-06 BREAST CANCER [facility] Test 14:11:02 SCREENING [code = BREAST CANCER SCREENING] Future Scheduled 2022-09-06 COLONOSCOPY SCREENING [facility] 14:11:02 [code = COLONOSCOPY SCREENING] Future Scheduled 2022-09-06 SHINGLES VACCINES (1 Met [facility] Test 14:11:02 of 2) [code = SHINGLES VACCINES (1 of 2)] Future Scheduled 2022-09-06 Pneumococcal Vaccine: [facility] 14:11:02 Pediatrics (0 to 5 Years) and At-Risk Patients (6 to 64 Years) (2 - PPSV23 or PCV20) [code = Pneumococcal Vaccine: Pediatrics (0 to 5 Years) and At-Risk Patients (6 to 64 Years) (2 - PPSV23 or PCV20)] Future Scheduled 2022-09-06 COVID-19 VACCINE (3 - [facility] 14:11:02 Booster for Moderna series) [code = COVID-19 VACCINE (3 - Booster for Moderna series)] Future Scheduled 2022-09-06 INFLUENZA VACCINE Method [facility] 14:11:02 [code [...] [facility] cervix (procedure) [code = 559987898] Future Scheduled [address] [facility] 00[facility]00 [facility] ne[facility] cervix (procedure) [code = 850136691] Future Scheduled [address] [facility] 00:00:00 [facility] cervix (procedure) [code = 085490681] Future Scheduled [address] [facility] 00:00:00 malignant neoplasm [facility] cervix (procedure) [code = 741067699] Future Scheduled 1983 DTAP/TDAP/TD VACCINES [facility] [...] [facility] breast (procedure) [code = 837330393] Future Scheduled [address] [facility] 00:00:00 (combo) [code = CT Medical C enter Colonography (combo)] Future Scheduled [address] [facility] 00:00:00 malignant neoplasm of [facility] colon (procedure) [code = 073336990] Future Scheduled [address] [facility] 00:00:00 malignant neoplasm of [facility] colon (procedure) [code = 720005224] Future Scheduled [address] [facility] 00:00:00 malignant neoplasm of [facility] colon (procedure) [code = 843427382] Future Scheduled [address] [facility] 00:00:00 malignant neoplasm of [facility] colon (procedure) [code = 006103738] Future Scheduled 1964 Sigmoidoscopy [facility]code [facility]] [facility] Cent[facility] Future Scheduled [address] [facility] 00:00:00 malignant neoplasm of [facility] breast (procedure) [code = 970230452] Future Scheduled [address] [facility] 00:00:00 (combo) [code = CT Medical C enter Colonography (combo)] Future Scheduled [address] [facility] 00:00:00 malignant neoplasm of [facility] colon (procedure) [code = 955712668] Future Scheduled [address] [facility] 00:00:00 malignant neoplasm of [facility] colon (procedure) [code = 304669466] Future Scheduled [address] [facility] 00:00:00 malignant neoplasm of [facility] colon (procedure) [code = 819707049] Future Scheduled [address] [facility] 00:00:00 malignant neoplasm of [facility] colon (procedure) [code = 639078731] Future Scheduled 1964 Sigmoid[facility] [address] [facility] 00:00:00 malignant neoplasm of [facility] breast (procedure) [code = 041969738] Future Scheduled [address] [facility] 00:00:00 (combo) [code = CT Medical C enter Colonography (combo)] Future Scheduled [address] [facility] 00:00:00 malignant neoplasm of [facility] colon (procedure) [code = 332110255] Future Scheduled [address] [facility] 00:00:00 malignant neoplasm of [facility] colon (procedure) [code = 403180647] Future Scheduled [address] [facility] 00:00:00 malignant neoplasm of [facility] colon (procedure) [code = 768840913] Future Scheduled [address] [facility] 00:00:00 malignant neoplasm of [facility] colon (procedure) [code = 835698813] Future Scheduled 1964 [facility] [address] [facility] 00:00:00 malignant neoplasm of [facility] breast (procedure) [code = 129559909] Future Scheduled [address] [facility] 00:00:00 (combo) [code = CT Medical C enter Colonography (combo)] Future Scheduled [address] [facility] 00:00:00 malignant neoplasm of [facility] colon (procedure) [code = 943242679] Future Scheduled [address] [facility] 00[facility]00[facility]00 [facility] [code = 685260746] Future Scheduled [address] [facility] 00:00:00 malignant neoplasm of [facility] colon (procedure) [code = 152804860] Future Scheduled [address] [facility] 00:00:00 [facility] (procedure) [code = 004363784] Future Scheduled 1964 [facility]] Medical Cent[facility] r Encounters Start End Encounter Admission Attending Care Care Encounter Source Date/Time Date/Time Type Type Clinicians Facility Department ID 2021-06-08 Inpatient EL Eulogio, HCACL DAYS [id number] [facility] 10:30:00 Manning [id number] [facility] 2021-06-05 Inpatient EL Eulogio, [facility]ACL DAYS [id number] [facility] 11:30:00 Manning [id number] [facility] 2021-05-19 Inpatient Eulogio, [facility]ACL DAYS [id number] [facility] 07:30:00 Manning [id number] [facility] 2021-05-15 Inpatient EL Eulogio, [facility]ACL DAYS [id number] [facility] 14:00:00 Manning [id number] [facility] 2024-08-03 2024-08-03 Outpatient TONY OLGUIN [facility] [id number] [facility] 13:00:00 13:00:00 [facility] 2023-11-07 2023-11-07 Outpatient IE KARINA [id number] Memoria 09:30:00 09:30:00 33 baldemar Gay 2023-11-07 2023-11-07 Outpatient KARINA COLLINS [id number] Memoria 09:30:00 09:30:00 33 baldemar Gay 2023-09-28 2023-09-28 Outpatient KARINA COLLINS [id number] [facility]oria 09:00:00 09:00:00 32 baldemar Gay 2023-09-28 2023-09-28 Outpatient KARINA COLLINS [id number] Memoria 09:00:00 09:00:00 32 baldemar Gay 2023-08-09 2023-08-09 Ambulatory MHIE MNA [id number] Memoria 18:45:00 18:45:00 Pre-Reg Neurology 32 l Elvin Gay 2023-08-09 2023-08-09 Ambulatory MHIE MNA [id number] Memoria 18:45:00 18:45:00 Pre-Reg Neurology 32 l Elvin Gay 2023-08-09 2023-08-09 Outpatient MHIE MHIE [id number] Memoria 13:45:00 13:45:00 31 baldemar Gay 2023-08-09 2023-08-09 Outpatient MHIE MHIE [id number] Memoria 13:45:00 13:45:00 31 baldemar Gay 2023-08-09 2023-08-09 Outpatient KEITH OrtegaSCHER MHMISCHER [id number] 13:45:00 13:45:00 Ab 32 Abran 2023-08-09 2023-08-09 Outpatient KEITH OrtegaSCHER MHMISCHER [id number] 13:45:00 13:45:00 Ab 32 Abran 2023-08-08 2023-08-09 Outpatient MHIE MNA [id number] Memoria 15:00:00 04:59:59 Neurology 31 baldemar Gay 2023-08-08 2023-08-09 Outpatient MHIE MNA [id number] Memoria 15:00:00 04:59:59 Neurology 31 l Elvin Gay 2023-08-08 2023-08-08 Outpatient KEITH OrtegaSCHER MHMISCHER [id number] 10:00:00 23:59:59 Ab 31 Abran 2023-08-08 2023-08-08 Outpatient BINTA OrtegaMISCHER MHMISCHER [id number] 10:00:00 23:59:59 Ab 31 Abran 2023-08-08 2023-08-08 Outpatient MHIE MHIE [id number] Memoria 10:00:00 10:00:00 30 baldemar Gay 2023-08-08 2023-08-08 Outpatient MHIE MHIE [id number] Memoria 10:00:00 10:00:00 30 baldemar Gay 2023-07-29 2023-07-29 Outpatient R TONY DAS [facility] [id number] [facility] 13:30:00 14:44:04 ity of [facility] 2023-07-29 2023-07-29 Office Tony Das KSTERESO WEINER [id number] [facility] 13:30:00 14:00:00 Visit Bhupinder LOPEZ [id number] it [id number] [id number] [facility] [address] 2023-07-29 2023-07-29 Orders Doctor [place] [id number] Univers 00:00:00 00:00:00 Only Unassigned, LISA [id number] ity of [place] [facility] [id number] Luis as [id number] [facility] [address] 2023-07-08 2023-07-08 Outpatient R THIAGO TONY [facility] [id number] [facility] 13:00:00 13:00:00 ity of [facility] 2023-06-27 2023-06-27 Outpatient RODNEY [facility] [id number] [facility] 05:35:00 05:35:[address] [place] [address] 2023-06-08 2023-06-09 Outpatient MHIE MNA [id number] Memoria 19:15:00 04:59:59 Neurology 30 l Elvin Gay 2023-06-08 2023-06-09 Outpatient MHIE MNA [id number] Memoria 19:15:00 04:59:59 Neurology 30 l Elvin Gay 2023-06-08 2023-06-08 Outpatient BINTA OrtegaMISCHER MHMISCHER [id number] 14:15:00 23:59:59 Ab 30 Abran 2023-06-08 2023-06-08 Outpatient Shannon MHMISCHER MHMISCHER [id number] 14:15:00 23:59:59 Ab 30 Abran 2023-06-08 2023-06-08 Outpatient MHIE MHIE [id number] Memoria 14:15:00 14:15:00 30 l Victor Hugo 2023-06-08 2023-06-08 Outpatient MHIE MHIE [id number] Memoria 14:15:00 14:15:00 30 l Victor Hugo 2023-05-09 2023-05-10 Outpatient MHIE MNA [id number] Memoria 14:00:00 04:59:59 Neurology 29 l Elvin Gay 2023-05-09 2023-05-10 Outpatient MHIE MNA [id number] Memoria 14:00:00 04:59:59 Neurology 29 l Elvin Gay 2023-05-09 2023-05-09 Outpatient JANEE OrtegaSCHER [id number] 09:00:00 23:59:59 Ab 29 Abran 2023-05-09 2023-05-09 Outpatient JANEE OrtegaSCHER [id number] 09:00:00 23:59:59 Ab 29 Abran 2023-05-09 2023-05-09 Ambulatory MHIE MNA [id number] Memoria 14:00:00 14:00:00 Pre-Reg Neurology 28 l Elvin Gay 2023-05-09 2023-05-09 Ambulatory MHIE MNA [id number] Memoria 14:00:00 14:00:00 Pre-Reg Neurology 28 l Elvin Gay 2023-05-09 2023-05-09 Outpatient MHIE MHIE [id number] Memoria 09:00:00 09:00:00 28 baldemar Gay 2023-05-09 2023-05-09 Outpatient MHIE MHIE [id number] Memoria 09:00:00 09:00:00 29 baldemra Gay 2023-05-09 2023-05-09 Outpatient MHIE MHIE [id number] Memoria 09:00:00 09:00:00 28 baldemar Gay 2023-05-09 2023-05-09 Outpatient MHIE MHIE [id number] Memoria 09:00:00 09:00:00 29 baldemar Gay 2023-05-09 2023-05-09 Outpatient JANEE OrtegaSCHER [id number] 09:00:00 09:00:00 Ab 28 Abran 2023-05-09 2023-05-09 Outpatient JANEE OrtegaSCHZURDO [id number] 09:00:00 09:00:00 Ab 28 Abran 2023-04-08 2023-04-08 Outpatient TONY OLGUIN [facility] [id number] Univers 13:30:00 13:30:00 ity [facility] 2023-02-04 2023-02-04 Outpatient R TONY DAS [facility] [id number] Univers 13:30:00 13:30:00 ity [facility] 2023-01-31 2023-02-01 Outpatient MHIE MNA [id number] Memoria 15:30:00 05:59:59 Neurology 27 l Elvin Gay 2023-01-31 2023-02-01 Outpatient MHIE MNA [id number] Memoria 15:30:00 05:59:59 Neurology 27 l Elvin Gay 2023-01-31 2023-01-31 Outpatient Shannon MHMISCHER MHMISCHER [id number] 09:30:00 23:59:59 Ab 27 Abran 2023-01-31 2023-01-31 Outpatient BINTA OrtegaMISCHER MHMISCHER [id number] 09:30:00 23:59:59 Ab 27 Abran 2023-01-31 2023-01-31 Outpatient MHIE MHIE [id number] Memoria 09:30:00 09:30:00 27 baldemar Gay 2023-01-31 2023-01-31 Outpatient MHIE MHIE [id number] Memoria 09:30:00 09:30:00 27 baldemar Gay 2022-12-24 2022-12-24 Outpatient R TONY DAS [facility] [id number] Univers 10:45[facility] 2022-12-24 2022-12-24 Telephone Tony Das [facility] 1.2.840.114 [id number] Univers 00:00:00 00:00:00 Bhupinder LOPEZ 350.1.13.10 it [place] [facility] [id number] [address] 2022-12-17 2022-12-17 Pre Visit DASH Anderson 1.2.307.362 [id number] Univers 00:00:00 00:00:00 Outreach Lissy ACOSTA 350.1.13.10 i ty of [place] 4.2.7.2.686 Kasi arcos [id number] [address] 2022-11-15 2022-11-16 Outpatient MHIE MNA [id number] Memoria 19:00:00 05:59:59 Neurology 24 l Elvin Rashidann 2022-11-15 2022-11-16 Outpatient MHIE MNA [id number] Memoria 19:00:00 05:59:59 Neurology 24 l Elvin Victor Hugo 2022-11-15 2022-11-15 Outpatient KEITH OrtegaSCHER MISCHER [id number] 13:00:00 23:59:59 Ab 24 Abran 2022-11-15 2022-11-15 Outpatient BINTA OrtegaMISCHER MISCHER [id number] 13:00:00 23:59:59 Ab 24 Abran 2022-11-15 2022-11-15 Outpatient MHIE MHIE [id number] Memoria 13:00:00 13:00:00 24 l [place] 2022-11-15 2022-11-15 Outpatient MHIE MHIE [id number] Memoria 13:00:00 13:00:00 24 baldemar Gay 2022-11-03 2022-11-03 Documentat Saima, 1.2.840.1 [id number] Methodi 00:00:00 00:00:00 [place] Caprice 69443.1.[address] 3.430.2.7 Hospit a .3.331551 l .8 2022-10-29 2022-10-29 Outpatient TONY OLGUIN [facility] [id number] [facility] 13:30:00 13:30:00 ity of [facility] 2022-09-28 2022-09-28 Ambulatory nullFlavo MNA [id number] Memoria 16:00:00 16:00:00 Pre-Reg r Neurology 26 l Elvin Gay 2022-09-28 2022-09-28 Ambulatory nullFlavo MNA [id number] Memoria 16:00:00 16:00:00 Pre-Reg r Neurology 26 l Elvin Gay 2022-09-28 2022-09-28 Outpatient Shannon MHMISCHER MHMISCHER [id number] 11:00:00 11:00:00 Ab 26 Abran 2022-09-28 2022-09-28 Outpatient KEITH OrtegaSCHER MHMISCHER [id number] 11:00:00 11:00:00 Ab 26 Abran 2022-09-13 2022-09-13 Outpatient MHIE MHIE [id number] Memoria 13:00:00 13:00:00 26 baldemar Gay 2022-09-13 2022-09-13 Outpatient MHIE MHIE [id number] Memoria 13:00:00 13:00:00 26 l Victor Hugo 2022-09-07 2022-09-08 Outpatient nullFlavo MNA [id number] Memoria 19:45:00 04:59:59 r Neurology 25 l Elvin Gay 2022-09-07 2022-09-08 Outpatient nullFlavo MNA [id number] Memoria 19:45:00 04:59:59 r Neurology 25 l Elvin Gay 2022-09-07 2022-09-07 Outpatient ShannonBINTADANIELLESCHER MISCHER [id number] 14:45:00 23:59:59 Ab 25 Abran 2022-09-07 2022-09-07 Outpatient ShannonBINTAMISCHER MHMISCHER [id number] 14:45:00 23:59:59 Ab 25 Abran 2022-09-07 2022-09-07 Outpatient MHIE MHIE [id number] Memoria 14:45:00 14:45:00 25 baldemar Gay 2022-09-07 2022-09-07 Outpatient MHIE MHIE [id number] Memoria 14:45:00 14:45:00 25 baldemar Gay 2022-08-20 2022-08-20 Outpatient R TONY DAS [facility] [id number] Univers 10:30:00 10:30:00 ity [facility] 2022-08-13 2022-08-13 Pre Visit DASH Anderson 1.2.180.498 [id number] Univers 00:00:00 00:00:00 Outreach Lissy ACOSTA 350.1.13.10 i [id number] [address] 2022-07-21 2022-07-22 Outpatient nullFlavo MNA [id number] Memoria 21:00:00 04:59:59 r Neurology 23 l Elvin Gay 2022-07-21 2022-07-22 Outpatient nullFlavo MNA [id number] Memoria 21:00:00 04:59:59 r Neurology 23 l Elvin Gay 2022-07-21 2022-07-21 Outpatient KEITH OrtegaSCHER MHMISCHER [id number] 16:00:00 23:59:59 Ab 23 Abran 2022-07-21 2022-07-21 Outpatient KEITH OrtegaSCHER MHMISCHER [id number] 16:00:00 23:59:59 Ab 23 Abran 2022-07-21 2022-07-21 Outpatient MHIE MHIE [id number] Memoria 16:00:00 16:00:00 23 baldemar Gay 2022-07-21 2022-07-21 Outpatient MHIE BINTAIE [id number] Memoria 16:00:00 16:00:00 23 baldemar Gay 2022-04-13 2022-04-13 Ambulatory nullFlavo MNA [id number] Memoria 18:15:00 18:15:00 Pre-Reg r Neurology 22 l Elvin Gay 2022-04-13 2022-04-13 Ambulatory nullFlavo MNA [id number] Memoria 18:15:00 18:15:00 Pre-Reg r Neurology 22 l Elvin Gay 2022-04-13 2022-04-13 Outpatient MHIE BINTAIE [id number] Memoria 13:15:00 13:15:00 22 baldemar Gay 2022-04-13 2022-04-13 Outpatient MHIE MHIE [id number] Memoria 13:15:00 13:15:00 22 baldemar Gay 2022-04-13 2022-04-13 Outpatient KEITH OrtegaSCHER MHMISCHER [id number] 13:15:00 13:15:00 Ab 22 Abran 2022-04-13 2022-04-13 Outpatient JANEE Ortega MHMISCHER [id number] 13:15:00 13:15:00 Ab 22 Abran 2022-03-08 2022-03-08 Orders Doctor [place] 1.2.840.114 [id number] Univers 00:00:00 00:00:00 Only Unassigned, LISA 350.1.13.10 ity of [place] [facility] 4.2.7.2.686 Luis as [phone] [address] 2022-02-11 2022-02-12 Outpatient nullFlavo MNA [id number] Memoria 18:00:00 04:59:59 r Neurology 19 l Elvin Gay 2022-02-11 2022-02-12 Outpatient nullFlavo MNA [id number] Memoria 18:00:00 04:59:59 r Neurology 19 l Elvin Rashidann 2022-02-11 2022-02-11 Outpatient JANEE OrtegaMISCHER [id number] 13:00:00 23:59:59 Ab 19 Abran 2022-02-11 2022-02-11 Outpatient JANEE OrtegaMISCHER [id number] 13:00:00 23:59:59 Ab 19 Abran 2022-02-11 2022-02-11 Outpatient MHIE MHIE [id number] Memoria 13:00:00 13:00:00 19 baldemar Gay 2022-02-11 2022-02-11 Outpatient MHIE MHIE [id number] Memoria 13:00:00 13:00:00 19 baldemar Gay 2022-01-06 2022-01-07 Outpatient nullFlavo MNA [id number] Memoria 15:15:00 05:59:59 r Neurology 21 l Elvin Rashidann 2022-01-06 2022-01-07 Outpatient nullFlavo MNA [id number] Memoria 15:15:00 05:59:59 r Neurology 21 l Elvin Rashidann 2022-01-06 2022-01-06 Outpatient KEITH OrtegaSCHZURDO JUDDMISCHER [id number] 09:15:00 23:59:59 Ab 21 Abran 2022-01-06 2022-01-06 Outpatient KEITH OrtegaSCHZURDO JUDDMISCHER [id number] 09:15:00 23:59:59 Ab 21 Abran 2022-01-06 2022-01-06 Outpatient MHIE MHIE [id number] Memoria 09:15:00 09:15:00 21 l Victor Hugo 2022-01-06 2022-01-06 Outpatient IE IE [id number] Memoria 09:15:00 09:15:00 21 l Victor Hugo 2021-12-16 2021-12-16 Treatment Beverly Cartagena 1.2.840.1 [id number] Methodi 09:00:00 10:00:[address] 3.430.2.7 Hospit a .3.528802 l .8 2021-12-16 2021-12-16 Travel 1.2.840.1 1.2.040.760 [id number] Methodi 00:00:00 00:00:[address] 3.430.2.7 0.2.7.3.698 Ho spita .3.927166 084.8 l .8 2021-12-10 2021-12-11 Outpatient nullFlavo MNA [id number] Memoria 22:15:00 05:59:59 r Neurology 20 l Elvin Gay 2021-12-10 2021-12-11 Outpatient nullFlavo MNA [id number] Memoria 22:15:00 05:59:59 r Neurology 20 l Elvin Rashidann 2021-12-10 2021-12-10 Outpatient KEITH OrtegaSCHER MHMISCHER [id number] 16:15:00 23:59:59 Ab 20 Abran 2021-12-10 2021-12-10 Outpatient KEITH OrtegaSCHER MHMISCHER [id number] 16:15:00 23:59:59 Ab 20 Abran 2021-12-10 2021-12-10 Ambulatory nullFlavo MNA [id number] Memoria 22:15:00 22:15:00 Pre-Reg r Neurology 17 l Elvin Gay 2021-12-10 2021-12-10 Ambulatory nullFlavo MNA [id number] Memoria 22:15:00 22:15:00 Pre-Reg r Neurology 17 l Elvin Gay 2021-12-10 2021-12-10 Outpatient MHIE MHIE [id number] Memoria 16:15:00 16:15:00 20 baldemar Gay 2021-12-10 2021-12-10 Outpatient MHIE MHIE [id number] Memoria 16:15:00 16:15:00 17 baldemar Gay 2021-12-10 2021-12-10 Outpatient MHIE MHIE [id number] Memoria 16:15:00 16:15:00 20 baldemar Gay 2021-12-10 2021-12-10 Outpatient MHIE [id number] Memoria 16:15:00 16:15:00 17 baldemar Gay 2021-12-10 2021-12-10 Outpatient BINTA OrtegaNMSCHZURDO MISCHER [id number] 16:15:00 16:15:00 Ab 17 Abran 2021-12-10 2021-12-10 Outpatient JANEE OrtegaNMSCHER [id number] 16:15:00 16:15:00 Ab 17 Abran 2021-11-30 2021-11-30 Treatment EulogioSarbjit pateldaniele Harvey 1.2.840.1 [id number] Methodi 09:00:00 10:00:[address] 3.430.2.7 Hospit a .3.585392 l .8 2021-11-30 2021-11-30 Travel 1.2.840.1 1.2.987.988 5324 [id number] Methodi 00:00:00 00:00:[address] 3.430.2.7 0.2.7.3.698 Ho spita .3.428415 084.8 l .8 2021-11-19 2021-11-20 Outpatient nullFlavo MNA [id number] Memoria 19:00:00 05:59:59 r Neurology 18 l [place] 2021-11-19 2021-11-20 Outpatient nullFlavo MNA [id number] Memoria 19:00:00 05:59:59 r Neurology 18 l [place] Victor Hugo 2021-11-19 2021-11-19 Outpatient KEITH OrtegaSCHER KEITHSCHER [id number] 13:00:00 23:59:59 Ab 18 Abran 2021-11-19 2021-11-19 Outpatient KEITH OrtegaSCHER EKITHSCHER [id number] 13:00:00 23:59:59 Ab 18 Abran 2021-11-19 2021-11-19 Outpatient JAY JAY [id number] Memoria 13:00:00 13:00:00 18 l Victor Hugo 2021-11-19 2021-11-19 [id number] Memoria 13:00:00 13:00:00 18 l Victor Hugo 2021-11-18 2021-11-18 Treatment Sarbjit Cartagenadaniele Harvey 1.2.840.1 [id number] Methodi 10:00:00 11:00:[address] Nenita [address]689.1.[address] 3.430.2.7 Hospit a .3.652077 l .8 2021-11-17 2021-11-17 Evaluation Sarbjit Cartagenadaniele Harvey 1.2.840. 1 [id number] Methodi 08:00:00 09:00:[address] 3.430.2.7 Hospit a .3.287396 l .8 2021-11-17 2021-11-17 Plan of 1.2.840.1 [id number] 5698 Methodi 00:00:00 00:00:[address] Documentat 3.430.2.7 Hos rene ion .3.297311 l .8 2021-11-17 2021-11-17 Travel 1.2.840.1 1.2.465.800 1253 116128 Methodi 00:00:00 00:00:[address] 3.430.2.7 0.2.7.3.698 Ho spita .3.584203 084.8 l .8 2021-11-12 2021-11-12 Transcribe Eulogio, 1.2.840.1 [id number] Methodi 00:00:00 00:00:00 Orders Beverly 26213.1.[address] Candice 3.430.2.7 Hospit a .3.471835 l .8 2021-11-12 2021-11-12 Travel 1.2.840.1 1.2.153.659 1382 [id number] Methodi 00:00:00 00:00:[address] 3.430.2.7 0.2.7.3.698 Ho spita .3.126802 084.8 l .8 2021-09-04 2021-09-06 Outside nullFlavo MNA [id number] Memoria 14:17:35 04:59:59 Medical r Neurology 02 l Records Elvin Rashidann 2021-09-04 2021-09-06 Outside nullFlavo MNA [id number] Memoria 14:17:35 04:59:59 Medical r Neurology 02 l Records Elvin Rashidann 2021-09-04 2021-09-05 Outpatient MHMISCHER MHMISCHER [id number] 09:17:35 23:59:59 02 2021-09-04 2021-09-05 Outpatient MHMISCHER MHMISCHER [id number] 09:17:35 23:59:59 02 2021-08-31 2021-08-31 Outpatient EULOGIO, [facility] [id number] [place] 00:00:00 00:00:00 BEVERLY [address] 2021-08-27 2021-08-27 Outpatient EULOGIO, [facility] [id number] [place] 00:00:00 00:00:00 BEVERLY [address] 2021-08-24 2021-08-26 Outside nullFlavo MNA [id number] Memoria 14:49:32 04:59:59 Medical r Neurology 01 l Records Elvin Rashidann 2021-08-24 2021-08-26 Outside nullFlavo MNA [id number] Memoria 14:49:32 04:59:59 Medical r Neurology 01 l Records Yakimachiara Rashidann 2021-08-24 2021-08-25 Outpatient MHMISCHER MHMISCHER [id number] 09:49:32 23:59:59 2021-08-24 2021-08-25 Outpatient MHMISCHER MHMISCHER [id number] 09:49:32 23:59:59 2021-08-24 2021-08-24 Outpatient EULOGIO, [facility] [id number] [place] 00:00:00 00:00:00 BEVERLY 384 Method i 2021-08-20 2021-08-20 Outpatient EULOGIO, [facility] [id number] [place] 00:00:00 00:00:00 BEVERLY 342 Method i 2021-08-19 2021-08-19 Outpatient EULOGIO, [facility] [id number] [place] 00:00:00 00:00:00 BEVERLY 343 Method i 2021-08-14 2021-08-14 Office Tony Das [facility] 1.2.840.114 [id number] [facility] 10:12:38 10:59:24 Visit Bhupinder Lopez 350.1.13.10 it y of Women's 4.2.7.2.686 [facility] [id number] [address] 2021-08-14 2021-08-14 Outpatient R TONY DAS [facility] [id number] [facility] 10:15:00 10:15:00 ity of [facility] 2021-08-10 2021-08-10 Outpatient EULOGIO, [facility] [id number] [place] 00:00:00 00:00:00 BEVERLY 230 Method i 2021-08-06 2021-08-06 Outpatient EULOGIO, [facility] [id number] [place] 00:00:00 00:00:00 BEVERLY 205 Method i 2021-07-30 2021-07-30 Outpatient EULOGIO, [facility] [id number] [place] 00:00:00 00:00:00 BEVERLY 805 Method i 2021-07-27 2021-07-27 Outpatient EULOGIO, [facility] [id number] [place] 00:00:00 00:00:00 BEVERLY 774 Method i 2021-07-23 2021-07-23 Outpatient EULOGIO, [facility] [id number] [place] 00:00:00 00:00:00 BEVERLY 727 Method i 2021-07-20 2021-07-20 Outpatient EULOGIO, [facility] [id number] [place] 00:00:00 00:00:00 BEVERLY 774 Method i 2021-07-09 2021-07-09 Outpatient EULOGIO, [facility] [id number] [place] 00:00:00 00:00:00 BEVERLY 643 Method i 2021-07-08 2021-07-08 Outpatient EULOGIO, [facility] [id number] [place] 00:00:00 00:00:00 BEVERLY 592 Method i 2021-07-02 2021-07-02 Outpatient EULOGIO, [facility] [id number] [place] 00:00:00 00:00:00 BEVERLY 982 Method i 2021-06-23 2021-06-23 Outpatient EULOGIO, [facility] [id number] [place] 00:00:00 00:00:00 BEVERLY 244 Method i 2021-06-09 2021-06-11 Inpatient RODNEY Patterson, HCACL MEDI.01 [id number] [facility] 16:03:00 15:30:00 Reji [id number] [facility] 2021-06-09 2021-06-09 Outpatient [id number] [facility] 16:08:00 16:08:00 79 [facility] 2021-04-08 2021-04-09 Outpatient nullFlavo MNA [id number] Memoria 14:00:00 04:59:59 r Neurology 16 l Elvin [place] 2021-04-08 2021-04-09 Outpatient nullFlavo MNA [id number] Memoria 14:00:00 04:59:59 r Neurology 16 l Elvin [place] 2021-04-08 2021-04-08 Outpatient KEITH OrtegaSCHER MHDANIELLESCHER [id number] 09:00:00 23:59:59 Ab Ny [facility] 2021-04-08 2021-04-08 Outpatient KEITH OrtegaSCHZURDO MHDANIELLESCHER [id number] 09:00:00 23:59:59 Ab Ny [facility] 2021-04-08 2021-04-08 Outpatient MHIE MHIE [id number] Memoria 09:00:00 09:00:00 16 baldemar Gay 2021-04-08 2021-04-08 Outpatient MHIE MHIE [id number] Memoria 09:00:00 09:00:00 16 baldemar Gay 2020-12-26 2020-12-28 Outside nullFlavo MNA [id number] Memoria 17:32:20 05:59:59 Medical r Neurology 00 l Records Elvin Gay 2020-12-26 2020-12-28 Outside nullFlavo MNA [id number] Memoria 17:32:20 05:59:59 Medical r Neurology 00 l Records Elvin Gay 2020-12-26 2020-12-27 Outpatient MHMISCHER MHMISCHER [id number] 11:32:20 23:59:59 00 2020-12-26 2020-12-27 Outpatient MHMISCHER MHMISCHER [id number] 11:32:20 23:59:59 00 2020-12-22 2020-12-23 Outpatient nullFlavo MNA [id number] Memoria 20:30:00 05:59:59 r Neurology 15 l Elvin Gay 2020-12-22 2020-12-23 Outpatient nullFlavo MNA [id number] Memoria 20:30:00 05:59:59 r Neurology 15 l Elvin Gay 2020-12-22 2020-12-22 Outpatient Shannon, MHMISCHER MHMISCHER [id number] 14:30:00 23:59:59 Ab 15 Abran 2020-12-22 2020-12-22 Outpatient Shannon, MHMISCHER MHMISCHER [id number] 14:30:00 23:59:59 Ab 15 [place] 2020-12-22 2020-12-22 Outpatient MHIE MHIE [id number] Memoria 14:30:00 14:30:00 15 baldemar Gay 2020-12-22 2020-12-22 Outpatient MHIE MHIE [id number] Memoria 14:30:00 14:30:00 15 baldemar [place] 2020-12-04 2020-12-04 Ambulatory nullFlavo MNA [id number] Memoria 19:15:00 19:15:00 Pre-Reg r Neurology 14 l Elvin Gay 2020-12-04 2020-12-04 Ambulatory nullFlavo MNA [id number] Memoria 19:15:00 19:15:00 Pre-Reg r Neurology 14 l Elvin Gay 2020-12-04 2020-12-04 Outpatient MHIE MHIE [id number] Memoria 13:15:00 13:15:00 14 baldemar Gay 2020-12-04 2020-12-04 Outpatient MHIE MHIE [id number] Memoria 13:15:00 13:15:00 14 baldemar Gay 2020-12-04 2020-12-04 Outpatient Shannon, MHMISCHER MHMISCHER [id number] 13:15:00 13:15:00 Ab 14 Abr[place] 2020-12-04 2020-12-04 Outpatient Shannon MHMISCHER MHMISCHER [id number] 13:15:00 13:15:00 Ab 14 Abr[place] 2020-09-30 2020-09-30 Outpatient [facility] [id number] [address] [place] [address] 00:00:00 00:00:00 COLDWATER 91 Method i 2020-07-31 2020-08-01 Outpatient nullFlavo MNA [id number] Memoria 18:15:00 04:59:59 r Neurology 13 l [place] 2020-07-31 2020-08-01 Outpatient nullFlavo MNA [id number] Memoria 18:15:00 04:59:59 r Neurology 13 l [place] Victor Hugo 2020-07-31 2020-07-31 Outpatient Shannon MHMISCHER MHMISCHER [id number] 13:15:00 23:59:59 Ab 13 [place] 2020-07-31 2020-07-31 Outpatient Shannon, MHMISCHER MHMISCHER [id number] 13:15:00 23:59:59 Ab 13 Abran 2020-07-31 2020-07-31 Outpatient MHIE MHIE [id number] Memoria 13:15:00 13:15:00 13 baldemar Gay 2020-07-31 2020-07-31 Outpatient MHIE MHIE [id number] Memoria 13:15:00 13:15:00 13 baldemar [place] 2020-07-29 2020-07-29 Ambulatory nullFlavo MNA [id number] Memoria 16:15:00 16:15:00 Pre-Reg r Neurology 12 l Elvin Rashidann 2020-07-29 2020-07-29 Ambulatory nullFlavo MNA [id number] Memoria 16:15:00 16:15:00 Pre-Reg r Neurology 12 l Elvin Gay 2020-07-29 2020-07-29 Outpatient Shannon, MHMISCHER MHMISCHER [id number] 11:15:00 11:15:00 Ab 12 Abr[place] 2020-07-29 2020-07-29 Outpatient Shannon, MHMISCHER MHMISCHER [id number] 11:15:00 11:15:00 Ab 12 Abr[place] 2020-06-06 2020-06-06 Ambulatory nullFlavo MNA [id number] Memoria 18:00:00 18:00:00 Pre-Reg r Neurology 11 l El[place] Victor Hugo 2020-06-06 2020-06-06 Ambulatory nullFlavo MNA [id number] Memoria 18:00:00 18:00:00 Pre-Reg r Neurology 11 l [place] Victor Hugo 2020-06-06 2020-06-06 Outpatient MHIE MHIE [id number] Memoria 13:00:00 13:00:00 12 l [place] 2020-06-06 2020-06-06 Outpatient MHIE MHIE [id number] Memoria 13:00:00 13:00:00 11 l Victor Hugo 2020-06-06 2020-06-06 Outpatient MHIE MHIE [id number] Memoria 13:00:00 13:00:00 12 l Victor Hugo 2020-06-06 2020-06-06 Outpatient MHIE MHIE [id number] Memoria 13:00:00 13:00:00 11 baldemar [place] 2020-06-06 2020-06-06 Outpatient Shannon, MHMISCHER MHMISCHER [id number] 13:00:00 13:00:00 Ab 11 [place] 2020-06-06 2020-06-06 Outpatient Shannon, MHMISCHER MHMISCHER [id number] 13:00:00 13:00:00 Ab 11 [place] 2020-03-12 2020-03-13 Outpatient nullFlavo MNA [id number] Memoria 18:45:00 04:59:59 r Neurology 09 l Elvin Gay 2020-03-12 2020-03-13 Outpatient nullFlavo MNA [id number] Memoria 18:45:00 04:59:59 r Neurology 09 l Elvin [place] 2020-03-12 2020-03-12 [facility] [id number] 13:45:00 23:59:59 Ab 09 [place] 2020-03-12 2020-03-12 [facility] [id number] 13:45:00 23:59:59 Ab 09 [place] 2020-03-12 2020-03-12 Outpatient MHIE MHIE [id number] Memoria 13:45:00 13:45:00 09 baldemar [place] 2020-03-12 2020-03-12 Outpatient MHIE MHIE [id number] Memoria 13:45:00 13:45:00 09 baldemar [place] 2020-01-22 2020-01-23 Outpatient nullFlavo MNA [id number] Memoria 17:45:00 05:59:59 r Neurology 10 l Elvin [place] 2020-01-22 2020-01-23 Outpatient nullFlavo MNA [id number] Memoria 17:45:00 05:59:59 r Neurology 10 l Elvin [place] 2020-01-22 2020-01-22 [facility] [id number] 11:45:00 23:59:59 Ab 10 [facility] 2020-01-22 2020-01-22 [facility] [id number] 11:45:00 23:59:59 Ab 10 [facility] 2020-01-22 2020-01-22 Outpatient MHIE MHIE [id number] Memoria 11:45:00 11:45:00 10 l [place] 2020-01-22 2020-01-22 Outpatient MHIE MHIE [id number] Memoria 11:45:00 11:45:00 10 [facility] 2020-01-11 2020-01-12 Outpatient nullFlavo MNA [id number] Memoria 20:15:00 05:59:59 r Neurology 08 l [place] 2020-01-11 2020-01-12 Outpatient nullFlavo MNA [id number] Memoria 20:15:00 05:59:59 r Neurology 08 l [place] 2020-01-11 2020-01-11 Outpatient Shannon, MHMISCHER MHMISCHER [id number] 14:15:00 23:59:59 Ab 08 [place] 2020-01-11 2020-01-11 Outpatient Shannon, MHMISCHER MHMISCHER [id number] 14:15:00 23:59:59 Ab 08 [place] 2020-01-11 2020-01-11 Ambulatory nullFlavo MNA [id number] Memoria 20:15:00 20:15:00 Pre-Reg r Neurology 07 l [place] Victor Hugo 2020-01-11 2020-01-11 Ambulatory nullFlavo MNA [id number] Memoria 20:15:00 20:15:00 Pre-Reg r Neurology 07 l [place] Victor Hugo 2020-01-11 2020-01-11 Outpatient MHIE MHIE [id number] Memoria 14:15:00 14:15:00 08 l [place] 2020-01-11 2020-01-11 Outpatient MHIE MHIE [id number] Memoria 14:15:00 14:15:00 07 l [place] 2020-01-11 2020-01-11 Outpatient MHIE MHIE [id number] Memoria 14:15:00 14:15:00 08 l [place] 2020-01-11 2020-01-11 Outpatient MHIE MHIE [id number] Memoria 14:15:00 14:15:00 07 l [place] 2020-01-11 2020-01-11 Outpatient Shannon, MHMISCHER MHMISCHER [id number] 14:15:00 14:15:00 Ab 07 2020-01-11 2020-01-11 Outpatient Shannon, MHMISCHER MHMISCHER [id number] 14:15:00 14:15:00 Ab 07 [place] 2019-12-06 2019-12-07 Outpatient nullFlavo MNA [id number] Memoria 22:00:00 05:59:59 r Neurology 06 l [place] Victor Hugo 2019-12-06 2019-12-07 Outpatient nullFlavo MNA [id number] Memoria 22:00:00 05:59:59 r Neurology 06 l [place] Hugo 2019-12-06 2019-12-06 Outpatient Shannon, MHMISCHER MHMISCHER [id number] 16:00:00 23:59:59 Ab 06 [place] 2019-12-06 2019-12-06 Out[facility] [id number] 16:00:00 23:59:59 Ab 06 [place] 2019-12-06 2019-12-06 Outpatient MHIE MHIE [id number] Memoria 16:00:00 16:00:00 06 baldemar Gay 2019-12-06 2019-12-06 Outpatient MHIE MHIE [id number] Memoria 16:00:00 16:00:00 06 baldemar Gay 2019-12-05 2019-12-05 Ambulatory nullFlavo MNA [id number] Memoria 14:15:00 14:15:00 Pre-Reg r Neurology 05 baldemar Gay 2019-12-05 2019-12-05 Ambulatory nullFlavo MNA [id number] Memoria 14:15:00 14:15:00 Pre-Reg r Neurology 05 l Elvin Gay 2019-12-05 2019-12-05 Outpatient MHIE MHIE [id number] Memoria 08:15:00 08:15:00 05 baldemar Gay 2019-12-05 2019-12-05 Outpatient MHIE MHIE [id number] Memoria 08:15:00 08:15:00 05 baldemar Gay 2019-12-05 2019-12-05 Outpatient KEITH OrtegaSCHER MISCHER [id number] 08:15:00 08:15:00 Ab Lenin Osullivan 2019-12-05 2019-12-05 Outpatient BINTA OrtegaNMSCHER MHMISCHER [id number] 08:15:00 08:15:00 Ab 05 Abran 2019-11-16 2019-11-16 Ambulatory nullFlavo MNA [id number] Memoria 19:00:00 19:00:00 Pre-Reg r Neurology 03 l [place] Mendota 2019-11-16 2019-11-16 Ambulatory nullFlavo MNA [id number] Memoria 19:00:00 19:00:00 Pre-Reg r Neurology 03 l [place] 2019-11-16 2019-11-16 Outpatient MHIE MHIE [id number] Memoria 13:00:00 13:00:00 03 l Victor Hugo 2019-11-16 2019-11-16 Outpatient MHIE MHIE [id number] Memoria 13:00:00 13:00:00 03 baldemar Gay 2019-11-16 2019-11-16 Outpatient Shannon, MHMISCHER MHMISCHER [id number] 13:00:00 13:00:00 Ab 03 Abran 2019-11-16 2019-11-16 Outpatient Shannon, MHMISCHER MHMISCHER [id number] 13:00:00 13:00:00 Ab 03 Abran 2019-11-09 2019-11-10 Outpatient nullFlavo MNA [id number] Memoria 17:30:00 05:59:59 r Neurology 04 baldemar Gay 2019-11-09 2019-11-10 Outpatient nullFlavo MNA [id number] Memoria 17:30:00 05:59:59 r Neurology 04 baldemar Gay 2019-11-09 2019-11-09 Outpatient Shannon, MHMISCHER MHMISCHER [id number] 11:30:00 23:59:59 Ab 04 Abran 2019-11-09 2019-11-09 Outpatient Shannon, MHMISCHER MHMISCHER [id number] 11:30:00 23:59:59 Ab 04 Abran 2019-11-09 2019-11-09 Outpatient MHIE MHIE [id number] Memoria 11:30:00 11:30:00 04 baldemar Gay 2019-11-09 2019-11-09 Outpatient MHIE MHIE [id number] Memoria 11:30:00 11:30:00 04 baldemar [place] 2019-09-19 2019-09-20 Outpatient nullFlavo MNA [id number] Memoria 18:00:00 04:59:59 r Neurology 02 baldemar O[place] Victor Hugo 2019-09-19 2019-09-20 Outpatient nullFlavo MNA [id number] Memoria 18:00:00 04:59:59 r Neurology 02 baldemar [place] 2019-09-19 2019-09-19 Outpatient Shannon, MHMISCHER MHMISCHER [id number] 13:00:00 23:59:59 Ab 02 Abran 2019-09-19 2019-09-19 Outpatient Shannon, MHMISCHER MHMISCHER 003 [id number] 13:00:00 23:59:59 Ab 02 Abran 2019-09-19 2019-09-19 Outpatient MHIE MHIE [id number] Memoria 13:00:00 13:00:00 02 baldemar [place] 2019-09-19 2019-09-19 Outpatient MHIE MHIE [id number] Memoria 13:00:00 13:00:00 02 baldemar [place] 2019-08-23 2019-08-24 Outpatient nullFlavo MNA [id number] Memoria 18:30:00 04:59:59 r Neurology 01 Elvin [place] 2019-08-23 2019-08-24 Outpatient nullFlavo MNA [id number] Memoria 18:30:00 04:59:59 r Neurology 01 Elvin [place] 2019-08-23 2019-08-23 Outpatient Shannon, MHMISCHER MHMISCHER [id number] 13:30:00 23:59:59 Ab Abran 2019-08-23 2019-08-23 Outpatient Shannon MHMISCHER MHMISCHER [id number] 13:30:00 23:59:59 Ab [facility] 2019-08-23 2019-08-23 Outpatient MHIE MHIE [id number] Memoria 13:30:00 13:30:00 01 baldemar [place] 2019-08-23 2019-08-23 Outpatient MHIE MHIE [id number] Memoria 13:30:00 13:30:00 01 baldemar [place] 2019-07-18 2019-07-19 Outpatient nullFlavo MNA [id number] Memoria 14:15:00 04:59:59 r Neurology 00 l Elvin [place] 2019-07-18 2019-07-19 Outpatient nullFlavo MNA [id number] Memoria 14:15:00 04:59:59 r Neurology 00 l Elvin [place] 2019-07-18 2019-07-18 Outpatient Shannon MHMISCHER MHMISCHER [id number] 09:15:00 23:59:59 Ab 00 Abran 2019-07-18 2019-07-18 Outpatient Shannon MHMISCHER MHMISCHER [id number] 09:15:00 23:59:59 Ab 00 Abran 2019-07-18 2019-07-18 Outpatient MHIE MHIE [id number] Memoria 09:15:00 09:15:00 00 baldemar [place] 2019-07-18 2019-07-18 Outpatient MHIE MHIE [id number] Memoria 09:15:00 09:15:00 00 baldemar Gay Results Test Description Test Time Test Comments Results Result [facility] e Comments - XR FLUOROSCOPY 2023-06-27 0-60 MIN 00:00:00 [facility] : 1965 Sex: F FAX: Anahi Graves MD [phone] [place] St: REG FAX: Ca Cosby DO [phone] Name: GINA MARIE [facility] : 1965 Age/S: 57/F [address] [place] [address] Unit #: [id number] Loc: [place] [address] Phys: Ca Gallo DO Acct: [id number] Dis Date: Status[place] [facility] [place] #: [phone] Exam Date: 06/27/2023 1424 FAX #: [phone] Reason: INTRACTABLE PAIN EXAMS: CPT CODE: [id number] XR FLUOROSCOPY 0-60 MIN 40084 PROCEDURE INFORMATION: Exam: FL Fluoroscopy, Up to 1 Hour Physician Time; Radiologist Not Present For Fluoroscopy Exam date and time: 06/27/2023 1:31 PM Age: 57 years old Clinical indication: Symptoms: Intractable pain TECHNIQUE: Imaging protocol: Fluoroscopy , up to 1 hour physician or other qualified health interior plant caretaker time. This radiologist did not supervise this [...] DO Technologist: RT Linh(R) Trnscrd Date/Time/By: 06/27/2023 (3492) : By: [email or web address] Orig Print D/T: S: 06/27/2023 (0454) PAGE 1 Signed Report COVID 19 Asymptomatic [...] Emergency Use A uthorization(EUA) for use by leonard salomon certified under the CLIA thatme et the requirements to perform mode rate, high or waivedcomplexit y tests. BASIC METABOLIC [id number] 13:27:00 Test Item Value Reference Range Interpretation [...] the recommended for eleuterio for GFRby the Natio nal Kidney Foundati on for Adults.The GFR will not calculate if th e sex is unknown or if thepatient's ag e is <18 years. CREATININE (test 0.7 mg/dL 0.6-1.3 N code = CREAT) CALCIUM (test code = 8.6 mg/dL 8.0-10.5 N CA) PROTHROMBIN [id number] 13:21:00 Test Item Value Reference Range Interpretation [...] (to prevent recurrent infar ct). THROMBOPLASTIN TIME [id number] 13:21:00 Test Item Value Reference Range Interpretation Comments THROMBOPLASTIN TIME 30.6 Seconds 25.0-39.5 N Therape utic Range: PARTIAL (test code = 50.4 - 88.3 Seconds PTT) Effective 03/13/2019 CBC W/AUTO [id number] 13:12:00 Test Item Value Reference Range Interpretation [...] NO = MDIFF) - XR CHEST 2 [id number] 00:00:00 [facility] : 1965 Sex: F FAX: Anahi Graves MD [phone] [place] St: PRE FAX: Ca Cosby DO [phone] FAX: Katherine Ma Name: GINA MARIE [facility] : 1965 Age/S: 57/F [address] [place] [address] Unit #: [id number] Loc: [place] [address] 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 CC: Anahi Chaves MD; Ca Gallo DO; Katherine Ma NP Technologist: RT Julia(R) Trnscrd Date/Time/By: 06/23/2023 (0668) : By: [email or web address] Orig Print D/T: S: 06/23/2023 (0577) PAGE 1 Signed ReportINFECTION CONTROL [id number] 18:10:00 Test Item Value Reference Range Interpretation Comments HEPATITIS C RNA Negative Negative Negative: HC V RNA Not BY PCR-QUAL DetectedPerform ed At: (test code = BN [facility] HCVRNAPCR) [address] [id number] ra Danielle SALINAS Ph:[phone] AG HEPATITIS B NON REACTIVE NonReactive SURFACE (test INDEX code = HBSAG) AB HIV 1 2 NONREACTIVE INDEX NONREACTIVE (test code = VLN89ZH) HIV 1/2 RAPID NONREACTIVE NONREACTIVE Critical resu lt SCREEN (test called to TED A code = NICKEL, RN/AOSb y USJ21HQC) G.LAB.UN at 165 9 06/09/21Nurse r ead back resut and tech confirmed it's correct? Y AG HIV1 P24 NONREACTIVE NONREACTIVE (test code = NPL9P08) BASIC METABOLIC [id number] 07:47:00 Test Item Value Reference Range Interpretation [...] code = 9.0 mg/dL 8.0-10.5 N CA) [id number] 07:47:00 Test Item Value Reference Range Interpretation Comments MAGNESIUM (test code = MAG) 1.91 mg/dL 1.80-2.40 N CBC W/AUTO [id number] 07:13:00 Test Item Value Reference Range Interpretation [...] (test NO code = MDIFF) INFECTION CONTROL [id number] 17:05:00 Test Item Value Reference Range Interpretation Comments HEPATITIS C RNA BY PCR-QUAL (test code = HCVRNAPCR) AG HEPATITIS B NON REACTIVE INDEX NonReactive SURFACE (test code = HBSAG) AB HIV 1 2 (test NONREACTIVE INDEX NONREACTIVE code = CWF40BA) HIV 1/2 RAPID NONREACTIVE NONREACTIVE Critical resu lt SCREEN (test code called to KEHINDE = CEN87JLX) ANGELA BROTHERS/Riya Finnegan.LAB.UN at 165 9 06/09/21Nurse read back resut and tech confirmed it's correct? Y AG HIV1 P24 (test NONREACTIVE NONREACTIVE code = TBD7B50) INFECTION CONTROL [id number] 17:01:00 Test Item Value Reference Range Interpretation Comments HEPATITIS C RNA BY PCR-QUAL (test code = HCVRNAPCR) AG HEPATITIS B INDEX NonReactive SURFACE (test code = HBSAG) AB HIV 1 2 (test code INDEX NONREACTIVE = UDM75JO) HIV 1/2 RAPID SCREEN NONREACTIVE NONREACTIVE Critic al result (test code = called to TED A GOO95NJD) ANGELA BROTHERS/Riya Finnegan.LAB.UN at 165 9 06/09/21Nurse r ead back resut and tech confirmed it's correct? Y AG HIV1 P24 (test NONREACTIVE NONREACTIVE code = IPC9Q50) COVID 19 Asymptomatic IH [id number] 13:43:00 Test Item Value Reference Range Interpretation [...] waivedcomplexit y tests. - XR CHEST 2 [id number] 13:06:00 [facility] 1965 Sex: F FAX: Anahi Graves MD [phone] [place] St: PRE FAX: Beverly Cartagena MD [phone] FAX: Katherine Ma Name:GINA MARIE [facility] : 1965 Age/S: 55/F [address] [place] [address] Unit #: [id number] Loc: [place] [address] Phys: Katherine Ma NP Acct: [id number] Dis Date: Status: PRE SDC PHONE #: [phone] Exam Date: 06/08/2021 1143 FAX #: [phone] Reason: PREOP EXAMS: CPT CODE: [id number] XR CHEST 2 V 29680 Clinical Indication: Preoperative evaluation. Comparison: 03/08/2019. Impression: Chest, 2 views. No consolidation, pleural effusion, or pneumothorax. Cardiac silhouette is of normal size. No acute osseous abnormality. Thoracic spinal stimulating device is in place. SL: [id number] at 1306 Reported and signed by: Brian Mendes M.D. CC: Anahi Chaves MD; Beverly Cartagena MD; Katherine Ma NP Technologist: RT Milly(Alba Trnscrd Date/Time/By: 06/08/2021 (1306) : By: [email or web address] Orig Print D/T: S: 06/08/2021 (9011) PAGE 1 Signed ReportBASIC METABOLIC [id number] 11:59:00 Test Item Value Reference Range Interpretation [...] 8.9 mg/dL 8.0-10.5 N CA) CBC W/AUTO [id number] 11:55:00 Test Item Value Reference Range Interpretation [...] code NO = MDIFF) AFB CULTURE + [id number] 12:03:00 Test Item Value Reference Range Interpretation Comments CULTURE (BEAKER) (test No acid-fast bacilli code = 1095) isolated in 42 days AFB SMEAR (BEAKER) No acid fast bacilli (test code = 994) seen FUNGUS CULTURE + [id number] 18:46:00 Test Item Value Reference Range Interpretation Comments CULTURE (BEAKER) A 1+ Jo-Ann albicans (test code = 1095) FUNGUS SMEAR No fungi seen (BEAKER) (test code = 1406) MISCELLANEOUS LAB [id number] 07:43:00 Test Item Value Reference Range Interpretation Comments SCAN RESULT (test code = 1069556) CBC W/PLT COUNT & AUTO [id number] 11:31:00 Test Item Value Reference Range Interpretation [...] PERCENT (BEAKER) (test code = 2801) POCT-GLUCOSE [id number] 08:15:00 Test Item Value Reference Range Interpretation Comments POC-GLUCOSE METER 87 mg/dL 70-110 : TESTED A T [facility] 6720 (BEAKER) (test code = [place], 1538) [address]: Mica Miner/Techni theo ID = [id number] for GINNY PULIDO [id number] 08:08:00 Test Item Value Reference Range Interpretation Comments MAGNESIUM (BEAKER) 1.6 mg/dL 1.6-2.6 Specimen slightly (test code = 627) hemolyzed COMPREHENSIVE METABOLIC [id number] 08:08:00 Test Item Value Reference Range Interpretation [...] NOT APPLICABLE FOR DIALYSIS PATIEN TS. POCT-GLUCOSE [id number] 23:32:00 Test Item Value Reference Range Interpretation Comments POC-GLUCOSE METER 98 mg/dL 70-110 : TESTED A T [facility] 6720 (BEAKER) (test code = [employer] [facility], 1538) 44927: Mica Miner/Techni theo ID = [id number] for PATEL TEJADA POCT-GLUCOSE [id number] 17:52:00 Test Item Value Reference Range Interpretation Comments POC-GLUCOSE METER 88 mg/dL 70-110 : TESTED A T [facility] 6720 (BEAKER) (test code = [employer] [facility], 1538) 43530: Mica Miner/Techni theo ID = [id number] for DOBB INS, ZAK POCT-GLUCOSE [id number] 11:53:00 Test Item Value Reference Range Interpretation Comments POC-GLUCOSE METER 161 mg/dL 70-110 H : TESTED A T [facility] 6720 (BEAKER) (test code = [employer] [facility], 1538) 31442: Mica Miner/Techni theo ID = [id number] for DO BBINS, ZAK BRONCHIAL CULTURE + GRAM [id number] 10:38:00 Test Item Value Reference Range Interpretation Comments CULTURE (BEAKER) (test See comment code = 1095) GRAM STAIN RESULT 2+ White blood cells (BEAKER) (test code = seen 1123) GRAM STAIN RESULT No organisms seen (BEAKER) (test code = 530637) 1+ YeastRAD, CHEST, 1 VIEW, NON [id number] 08:59:00Reason for exam:- >endotracheal intubationShould this be [...] Silva MDReport Verified Date/Time: 10/14/201908:59:12 Reading Location: [address] Transitional Reading Room [id number] 08:38:00 Test Item Value Reference Range Interpretation Comments MAGNESIUM (BEAKER) 2.0 mg/dL 1.6-2.6 Specimen slightly (test code = 627) hemolyzed COMPREHENSIVE METABOLIC [id number] 08:38:00 Test Item Value Reference Range Interpretation [...] PATIEN TS. CBC W/PLT COUNT & AUTO [id number] 08:23:00 Test Item Value Reference Range Interpretation [...] PERCENT (BEAKER) (test code = 2801) POCT-GLUCOSE [id number] 07:07:00 Test Item Value Reference Range Interpretation Comments POC-GLUCOSE METER 84 mg/dL 70-110 : TESTED A T [facility] 6720 (BEAKER) (test code = [facility], 1538) 05244: Mica Miner/Techni theo ID = [id number] for Will iams, Kamille BLOOD GAS, [id number] 04:38:00 Test Item Value Reference Range Interpretation [...] (test code = 1819) 36.0 % POCT-GLUCOSE [id number] 01:19:00 Test Item Value Reference Range Interpretation Comments POC-GLUCOSE METER 152 mg/dL 70-110 H : TESTED A T [facility] 6720 (BEAKER) (test code = [facility] [employer] [facility], 1538) 20595: Mica Miner/Techni theo ID = [id number] for Wi lliams, Kamille BLOOD [id number] 19:01:00 Test Item Value Reference Range Interpretation Comments CULTURE (BEAKER) (test No growth in 5 days code = 1095) POCT-GLUCOSE [id number] 18:11:00 Test Item Value Reference Range Interpretation Comments POC-GLUCOSE METER 82 mg/dL 70-110 : TESTED A T [facility] 6720 (BEAKER) (test code = [facility] [employer] [facility], 1538) 27888: Mica Miner/Techni theo ID = [id number] for DOBB INS, ZAK POCT-GLUCOSE [id number] 12:34:00 Test Item Value Reference Range Interpretation Comments POC-GLUCOSE METER 87 mg/dL 70-110 : TESTED A T [facility] 6720 (BEAKER) (test code = [facility], 1538) 24962: Mica Miner/Techni theo ID = [id number] for SAND ERS, GIDEON CBC W/PLT COUNT & AUTO [id number] 09:13:00 Test Item Value Reference Range Interpretation [...] 0-1 PERCENT (BEAKER) (test code = 2801) [id number] 06:55:00 Test Item Value Reference Range Interpretation Comments MAGNESIUM (BEAKER) (test code = 1.8 mg/dL 1.6-2.6 627) COMPREHENSIVE METABOLIC [id number] 06:55:00 Test Item Value Reference Range Interpretation [...] APPLICABLE FOR DIALYSIS PATIEN TS. BLOOD GAS, [id number] 06:41:00 Test Item Value Reference Range Interpretation [...] 28.0 % RAD, CHEST, 1 VIEW, NON [id number] 04:40:00Reason for exam:->endotracheal intubationShould this be performed [...] surgical changes of the left clavicle.. Signed: Shaeffer, Carolynn MDReport Verified Date/Time: 10/13/2019 04:40:52 POCT-GLUCOSE METER 2019-10-13 00:24:00 Test Item Value Reference Range Interpretation Comments POC-GLUCOSE METER 107 mg/dL 70-110 : TESTED A T [facility] 6720 (BEAKER) (test code = [employer] [facility], 1538) 44611: Mica Miner/Techni theo ID = [id number] for Dianna Wetzel RAD, MANDIBLE, MIN 4 [id number] 17:22:00Reason for exam:->Liver Transplant EvaluationShould this be [...] MDReport Verified Date/Time: 10/12/2019 17:22:01 Reading Location: [facility] Reading Room POCT-GLUCOSE [id number] 12:42:00 Test Item Value Reference Range Interpretation Comments POC-GLUCOSE METER 119 mg/dL 70-110 H : TESTED A T [facility] 6720 (BEAKER) (test code = LIV Dozier [facility], 1538) 90175: Mica Miner/Techni theo ID = [id number] for Tyler Sanchez RAD, CHEST, 1 VIEW, NON [id number] 09:14:00Reason for exam:->endotracheal intubationShould this be performed [...] Spangler Verified Date/Time: 10/12/2019 09:14:48 Reading Location: [facility] Radiology Reading Room [id number] 04:39:00 Test Item Value Reference Range Interpretation Comments MAGNESIUM (BEAKER) (test code = 1.8 mg/dL 1.6-2.6 627) COMPREHENSIVE METABOLIC [id number] 04:39:00 Test Item Value Reference Range Interpretation [...] PATIEN TS. CBC W/PLT COUNT & AUTO [id number] 04:18:00 Test Item Value Reference Range Interpretation [...] (BEAKER) (test code = 2801) BLOOD GAS, [id number] 04:17:00 Test Item Value Reference Range Interpretation [...] (test code = 1819) 30.0 % SPIN/CONCENTRATION [id number] 01:15:00 Test Item Value Reference Range Interpretation Comments CONCENTRATION CHARGED (BEAKER) (test Done code = 2657) BODY FLUID CELL COUNT WITH [id number] 18:00:00 Test Item Value Reference Range Interpretation [...] (test code = 2873) EEG AWAKE AND [id number] 17:00:00Reason for exam:->acute encephalopathyShould this be performed at the bedside?->YesDate(s) of EE10/11/2019 DATE OF REPORT: 10/11/2019ACC: [id number] Number: [id number] Location: Inpatient ICUStart time: 10/11/2019 16:09Stop time: 10/11/2019 16:31ICD-10: R41.82 CPT Code: 87938 HISTORY: 54 y.o. female with hypertension, chronic [...] of this report.Jermaine Walton MD, PhDAttending NeurophysiologistCHI [place], [place] SPUTUM CULTURE + GRAM [id number] 15:43:00 Test Item Value Reference Range Interpretation Comments CULTURE (BEAKER) 4+ Normal respiratory (test code = 1095) candy present GRAM STAIN RESULT 2+ White blood cells (BEAKER) (test code = seen 1123) GRAM STAIN RESULT 0-5 epithelial cells (BEAKER) (test code = 58107) GRAM STAIN RESULT 1+ gram positive rods (BEAKER) (test code = 53418) GRAM STAIN RESULT <1+ yeast (BEAKER) (test code = 193238) MISCELLANEOUS LAB [id number] 08:34:00 Test Item Value Reference Range Interpretation Comments SCAN RESULT (test code = 1335960) RAD, CHEST, 1 VIEW, NON [id number] 07:51:00Reason for exam:->endotracheal intubationShould this be performed [...] Verified Date/Time: 10/11/2019 07:51:10 Reading Location: [facility] Radiology Reading Room BLOOD [id number] 07:00:00 Test Item Value Reference Range Interpretation Comments CULTURE (BEAKER) (test No growth in 5 days code = 1095) BLOOD [id number] 07:00:00 Test Item Value Reference Range Interpretation Comments CULTURE (BEAKER) (test No growth in 5 days code = 1095) POCT-GLUCOSE [id number] 05:51:00 Test Item Value Reference Range Interpretation Comments POC-GLUCOSE METER 103 mg/dL 70-110 : TESTED A T [facility] 6720 (BEAKER) (test code = [place], 1538) 03897: Mica Miner/Techni theo ID = [id number] for SHARI BAJWA BLOOD GAS, [id number] 04:55:00 Test Item Value Reference Range Interpretation [...] (BEAKER) (test code = 1819) 40.0 % [id number] 04:46:00 Test Item Value Reference Range Interpretation Comments MAGNESIUM (BEAKER) (test code = 2.2 mg/dL 1.6-2.6 627) COMPREHENSIVE METABOLIC [id number] 04:46:00 Test Item Value Reference Range Interpretation [...] PATIEN TS. CBC W/PLT COUNT & AUTO [id number] 04:11:00 Test Item Value Reference Range Interpretation [...] PERCENT (BEAKER) (test code = 2801) POCT-GLUCOSE [id number] 23:55:00 Test Item Value Reference Range Interpretation Comments POC-GLUCOSE METER 118 mg/dL 70-110 H : TESTED A T [facility] 6720 (BEAKER) (test code = [facility], [facility]) 96735: Mica Miner/Techni theo ID = [id number] for OD SHARI SKINNER POCT-GLUCOSE [id number] 17:40:00 Test Item Value Reference Range Interpretation Comments POC-GLUCOSE METER 142 mg/dL 70-110 H : TESTED A T [facility] 6720 (BEAKER) (test code = [facility], 1538) 52566: Mica Miner/Techni theo ID = [id number] for Gr ant, Jackieara POCT-GLUCOSE [id number] 12:30:00 Test Item Value Reference Range Interpretation Comments POC-GLUCOSE METER 114 mg/dL 70-110 H : TESTED A T [facility] 6720 (BEAKER) (test code = [facility], 1538) 04530: Mica Miner/Techni theo ID = [id number] for Gr ant, Tieara HIV-1 PCR, [id number] 11:07:00 Test Item Value Reference Range Interpretation Comments HIV-1 RESULT HIV RNA not detected HIV RNA not detected COMPONENT (BEAKER) (test code = 2703) This test uses a Real-Time Polymerase Chain Reaction (RT-PCR) methodology to detect a highly conserved region of the HIV-1 gag gene and was performed using the CHRISTINA AmpliPrep/CHRISTINA TaqMan HIV-1 test kit version 2.0 ([employer]Reportable range for this assay is 20 - 10,000,000 copies per mL (1.3 - 7.0 Log copies/mL).[id number] 08:14:00 Test Item Value Reference Range Interpretation Comments T3 TOTAL (JASON) (test code = 656) 36 ng/dL 48-159 L RAD, CHEST, 1 VIEW, NON [id number] 07:15:00Reason for exam:->endotracheal intubationShould this be performed [...] Verified Date/Time: 10/10/2019 07:15:28 Reading Location: [facility] Radiology Reading Room POCT- GLUCOSE [id number] 06:26:00 Test Item Value Reference Range Interpretation Comments POC-GLUCOSE METER 103 mg/dL 70-110 : TESTED A T [facility] 6720 (JASON) (test code = [place], 1538) 22258: Mica Miner/Techni theo ID = [id number] for SUSIE TRUONG [id number] 05:32:00 Test Item Value Reference Range Interpretation [...] within 95-100% range.CBC W/PLT COUNT & AUTO [id number] 05:23:00 Test Item Value Reference Range Interpretation [...] 0-1 PERCENT (BEAKER) (test code = 2801) PT/[id number] 05:10:00 Test Item Value Reference Range Interpretation [...] is 2.5-3.5 for patients wiht mechanical heart valves.[id number] 05:10:00 Test Item Value Reference Range Interpretation Comments PHOSPHORUS (BEAKER) (test code = 3.3 mg/dL 2.3-4.7 604) [id number] 05:10:00 Test Item Value Reference Range Interpretation Comments MAGNESIUM (BEAKER) (test code = 2.3 mg/dL 1.6-2.6 627) COMPREHENSIVE METABOLIC [id number] 05:10:00 Test Item Value Reference Range Interpretation [...] S NOT APPLICABLE FOR DIALYSIS PATIEN TS. [id number] 05:08:00 Test Item Value Reference Range Interpretation Comments FIBRINOGEN LEVEL (BEAKER) (test 275 mg/dl 225-434 code = 658) PROTHROMBIN [id number] 05:07:00 Test Item Value Reference Range Interpretation [...] 2.5-3.5 for patients wiht mechanical heart valves.CALCIUM, [id number] 04:59:00 Test Item Value Reference Range Interpretation Comments CALCIUM IONIZED (BEAKER) (test 1.20 mmol/L 1.12-1.27 code = 698) PH, BLOOD (BEAKER) (test code = 7.37 1810) BLOOD GAS, [id number] 04:55:00 Test Item Value Reference Range Interpretation [...] (test code = 1819) 40.0 % POCT-GLUCOSE [id number] 00:46:00 Test Item Value Reference Range Interpretation Comments POC-GLUCOSE METER 90 mg/dL 70-110 : [facility] (BEAKER) (test code = LIV LEE PA, 1538) 59567: Mica Miner/Techni theo ID = [id number] for SUSIE LISA MRSA [id number] 19:33:00 Test Item Value Reference Range Interpretation Comments CULTURE (BEAKER) (test code No MRSA isolated = 1095) PROTHROMBIN [id number] 18:00:00 Test Item Value Reference Range Interpretation [...] is 2.5-3.5 for patients wiht mechanical heart valves.PT/[id number] 18:00:00 Test Item Value Reference Range Interpretation [...] is 2.5-3.5 for patients wiht mechanical heart valves.[id number] 17:55:00 Test Item Value Reference Range Interpretation Comments MAGNESIUM (BEAKER) (test code = 1.9 mg/dL 1.6-2.6 627) BASIC METABOLIC [id number] 17:55:00 Test Item Value Reference Range Interpretation [...] APPLICABLE FOR DIALYSIS PATIEN TS. CYTOMEGALOVIRUS ANTIBODY, [id number] 16:41:00 Test Item Value Reference Range Interpretation Comments CYTOMEGALOVIRUS, IGG (BEAKER) Negative Negative, Equivocal (test code = 3429) CMV IgG Result Interpretation: </= 0.8 Al Negative 0.9-1.0 Al Equivocal >/=1.1 Al PositiveCYTOMEGALOVIRUS ANTIBODY, [id number] 16:41:00 Test Item Value Reference Range Interpretation Comments CYTOMEGALOVIRUS IGM ANTIBODY Negative Negative, Equivocal (Fit&Color) (test code = 3437) CMV IgM Result Interpretation: </= 0.8 Al Negative 0.9-1.0 Al Equivocal >/= 1.1 Al PositiveEBV ANTIBODY, [id number] 16:41:00 Test Item Value Reference Range Interpretation Comments JAMA ROUSE VIRAL CAPSID Positive Negative, Equivocal A ANTIGEN IGG (Fit&Color) (test code = 3415) Jama Rouse Viral Capsid Antigen IgG Result Interpretation: </= 0.8 Al Negative 0.9-1.0 Al Equivocal >/= 1.1 Al PositiveEBV ANTIBODY, [id number] 16:41:00 Test Item Value Reference Range Interpretation Comments JAMA ROUSE VIRAL CAPSID Positive Negative, Equivocal A ANTIGEN IGM (Fit&Color) (test code = 3418) Jama Rouse Viral Capsid Antigen IgM Result Interpretation: </= 0.8 Al Negative 0.9-1.0 Al Equivocal >/= 1.1 Al PositivePOCT-GLUCOSE [id number] 16:15:00 Test Item Value Reference Range Interpretation Comments POC-GLUCOSE METER 107 mg/dL 70-110 : TESTED A T [facility] 6720 [facility] (test code = [place], 1538) [address]: Mica Miner/Techni theo ID = [id number] for Karely Bautista CT, BRAIN, WITHOUT [id number] 14:07:00Patient with decerebrate posturing, r/o herniationFINAL REPORT [...] Date/Time: 10/09/2019 14:07:57 SPUTUM CULTURE + GRAM [id number] 12:59:00 Test Item Value Reference Range Interpretation Comments CULTURE (BEAKER) See comment (test code = 1095) GRAM STAIN RESULT 1+ White blood cells (BEAKER) (test code = seen 1123) GRAM STAIN RESULT 0-5 epithelial cells (BEAKER) (test code = 371846) GRAM STAIN RESULT No organisms seen (BEAKER) (test code = 681566) 2+ YeastNo Normal respiratory candy presentPOCT-GLUCOSE [id number] 12:22:00 Test Item Value Reference Range Interpretation Comments POC-GLUCOSE METER 168 mg/dL 70-110 H : TESTED A T [facility] 6720 (BEAKER) (test code = [place], 1538) [address]: Mica Miner/Techni theo ID = [id number] for Gr ant, Tieara POCT-GLUCOSE [id number] 10:04:00 Test Item Value Reference Range Interpretation Comments POC-GLUCOSE METER 101 mg/dL 70-110 : TESTED A T [facility] 6720 (BEAKER) (test code = [employer] [facility], 1538) [address]: Mica Miner/Techni theo ID = [id number] for Gr ant, Tieara BILIRUBIN, [id number] 09:44:00 Test Item Value Reference Range Interpretation Comments BILIRUBIN DIRECT (BEAKER) (test 1.5 mg/dL 0.1-0.5 H code = 706) [id number] 07:19:00 Test Item Value Reference Range Interpretation [...] within 95-100% range.RAD, CHEST, 1 VIEW, NON [id number] 05:16:00Reason for exam:->endotracheal intubationShould this be performed [...] Cummins MDReport Verified Date/Time: 10/09/2019 05:16:08 CALCIUM, [id number] 05:05:00 Test Item Value Reference Range Interpretation Comments CALCIUM IONIZED (BEAKER) (test 1.14 mmol/L 1.12-1.27 code = 698) PH, BLOOD (BEAKER) (test code = 7.49 1810) BLOOD GAS, [id number] 05:04:00 Test Item Value Reference Range Interpretation [...] 40.0 % CBC W/PLT COUNT & AUTO [id number] 04:51:00 Test Item Value Reference Range Interpretation [...] (BEAKER) (test code = 2801) VANCOMYCIN LEVEL, [id number] 04:26:00 Test Item Value Reference Range Interpretation Comments VANCOMYCIN TROUGH (BEAKER) (test 7.0 ug/mL 10.0-20.0 L code = 522) [id number] 04:21:00 Test Item Value Reference Range Interpretation Comments PHOSPHORUS (BEAKER) (test code = 3.2 mg/dL 2.3-4.7 604) [id number] 04:21:00 Test Item Value Reference Range Interpretation Comments MAGNESIUM (BEAKER) (test code = 1.9 mg/dL 1.6-2.6 627) COMPREHENSIVE METABOLIC [id number] 04:21:00 Test Item Value Reference Range Interpretation [...] S NOT APPLICABLE FOR DIALYSIS PATIEN TS. [id number] 04:19:00 Test Item Value Reference Range Interpretation Comments FIBRINOGEN LEVEL (BEAKER) (test 267 mg/dl 225-434 code = 658) [id number] 04:14:00 Test Item Value Reference Range Interpretation [...] 2.5-3.5 for patients wiht mechanical heart valves.PROTHROMBIN TIME/[id number] 04:13:00 Test Item Value Reference Range Interpretation [...] 2.5-3.5 for patients wiht mechanical heart valves.POCT-GLUCOSE [id number] 01:04:00 Test Item Value Reference Range Interpretation Comments POC-GLUCOSE METER 143 mg/dL 70-110 H : TESTED A T [facility] 6720 ([employer]) (test code = [facility] [employer] [facility], 1538) [address]: Mica Miner/Techni theo ID = [id number] for BONY BRISCOE, SUSIE POCT-GLUCOSE [id number] 20:20:00 Test Item Value Reference Range Interpretation Comments POC-GLUCOSE METER 145 mg/dL 70-110 H : TESTED A T [facility] 6720 ([employer]) (test code = [employer] [facility] [employer] [facility], 1538) 98479: Mica Miner/Techni theo ID = [id number] for BONY BRISCOE, SUSIE POCT-GLUCOSE [id number] 16:43:00 Test Item Value Reference Range Interpretation Comments POC-GLUCOSE METER 164 mg/dL 70-110 H : TESTED A T [facility] 6720 ([employer]) (test code = [employer] [facility] [employer] [facility], 1538) 6[address]: Mica Miner/Techni theo ID = [id number] for Karely Bautista CMV PCR, [id number] 15:47:00 Test Item Value Reference Range Interpretation Comments CMV VIRAL LOAD - Negative or below the NEGATIVE ([employer] TherapeuticsAKER) (test linear range of the code = [...] and its performance characteristics determined by the [facility] Pathol ogy Department, Section of Molecular Pathology. It has not been cleared or approved by the U.S. Foodand Drug Administration (FDA), since FDA approval is not required for clinical use of the test. Validation was done as required by The Clinical Laboratory Improvement Amendments of 1988.[id number] 15:29:00 Test Item Value Reference Range Interpretation Comments PHOSPHORUS (BEAKER) (test code = 3.5 mg/dL 2.3-4.7 604) [id number] 15:29:00 Test Item Value Reference Range Interpretation Comments MAGNESIUM (BEAKER) (test code = 2.1 mg/dL 1.6-2.6 627) [id number] 15:01:00 Test Item Value Reference Range Interpretation Comments PHOSPHORUS (BEAKER) (test code = 2.1 mg/dL 2.3-4.7 L 604) [id number] 15:01:00 Test Item Value Reference Range Interpretation Comments MAGNESIUM (BEAKER) (test code = 2.0 mg/dL 1.6-2.6 627) BASIC METABOLIC [id number] 15:01:00 Test Item Value Reference Range Interpretation [...] APPLICABLE FOR DIALYSIS PATIEN TS. Specimen slightly ictericPT/[id number] 14:53:00 Test Item Value Reference Range Interpretation [...] is 2.5-3.5 for patients wiht mechanical heart valves.[id number] 14:38:00 Test Item Value Reference Range Interpretation Comments AMMONIA (BEAKER) (test code = 348) 34 mol/L 18-72 RUBELLA ANTIBODY, [id number] 14:20:00 Test Item Value Reference Range Interpretation Comments RUBELLA IGG QUANTITATION (BEAKER) 1.0 IU/mL <8.0 (test code = 572) Rubella IgG Result Interpretation: </= 7.0 IU/mL Negative - Presumed non- immune 8.0 - 9.9 IU/mL Equivocal >= 10.0 IU/mL Positive - Presumed immune VARICELLA ZOSTER ANTIBODY, [id number] 13:49:00 Test Item Value Reference Range Interpretation Comments VARICELLA ZOSTER IGG (AL) (BEAKER) 4.8 (test code = 3197) VARICELLA ZOSTER RESULT INTERPRETATIONS: <=0.8 Al Nonreactive: Presumed non- immune to VZV 0.9-1.0Al Equivocal >=1.1 Al Reactive: Presumed immune to VZV CRYPTOCOCCAL [id number] 13:33:00 Test Item Value Reference Range Interpretation Comments CRYPTOCOCCAL ANTIGEN, SERUM Negative Negative, Interference (BEAKER) (test code = 1828) FACTOR 5 ACTIVITY (BLEEDING RISK)2019-10-08 13:03:00 Test Item Value Reference Range Interpretation Comments FACTOR V ACTIVITY (BEAKER) (test code = 9.0 % 60.0-150.0 L 665) CBC W/PLT COUNT & AUTO [id number] 12:13:00 Test Item Value Reference Range Interpretation [...] PERCENT (BEAKER) (test code = 2801) POCT-GLUCOSE [id number] 11:22:00 Test Item Value Reference Range Interpretation Comments POC-GLUCOSE METER 184 mg/dL 70-110 H : TESTED A T [facility] 6720 (BEAKER) (test code = [place], 1538) [address]: Mica Miner/Techni theo ID = [id number] for Karely Bautista ANTI-NUCLEAR ANTIBODY (JOSE ARMANDO)2019-10-08 10:44:00 Test Item Value Reference Range Interpretation Comments ANTI-NUCLEAR ANTIBODY (JOSE ARMANDO) (BEAKER) Negative Negative (test code = 418) Test performed by IFA method.Test performed by IFA method.[id number] 09:26:00 Test Item Value Reference Range Interpretation Comments PHOSPHORUS (BEAKER) (test code = 2.9 mg/dL 2.3-4.7 604) [id number] 09:26:00 Test Item Value Reference Range Interpretation Comments MAGNESIUM (BEAKER) (test code = 2.0 mg/dL 1.6-2.6 627) BASIC METABOLIC [id number] 09:26:00 Test Item Value Reference Range Interpretation [...] Specimen slightly ictericRAD, CHEST, 1 VIEW, NON [id number] 09:14:00Reason for exam:->endotracheal intubationShould this be performed [...] MDReport Verified Date/Time: 10/08/2019 09:14:39 Reading Location: [facility] Radiology Reading Room -[id number] 06:25:00 Test Item Value Reference Range Interpretation [...] of thrombosis is within 95-100% range. PROTHROMBIN TIME/[id number] 05:32:00 Test Item Value Reference Range Interpretation [...] is 2.5-3.5 for patients wiht mechanical heart valves.[id number] 05:32:00 Test Item Value Reference Range Interpretation Comments FIBRINOGEN LEVEL (BEAKER) (test 200 mg/dl 225-434 L code = 658) [id number] 05:32:00 Test Item Value Reference Range Interpretation [...] Specimen slightly ictericCBC W/PLT COUNT & AUTO [id number] 05:24:00 Test Item Value Reference Range Interpretation [...] (BEAKER) (test code = 2801) LACTIC ACID, [id number] 05:16:00 Test Item Value Reference Range Interpretation Comments LACTATE BLOOD VENOUS (2) (BEAKER) 1.8 mmol/L 0.5-2.2 (test code = 2872) [id number] 23:51:00 Test Item Value Reference Range Interpretation Comments PHOSPHORUS (BEAKER) (test code = 4.4 mg/dL 2.3-4.7 604) [id number] 23:51:00 Test Item Value Reference Range Interpretation Comments MAGNESIUM (BEAKER) (test code = 2.2 mg/dL 1.6-2.6 627) BASIC METABOLIC [id number] 23:51:00 Test Item Value Reference Range Interpretation [...] DIALYSIS PATIEN TS. Specimen slightly ictericBLOOD GAS, [id number] 23:37:00 Test Item Value Reference Range Interpretation [...] 50.0 % CBC W/PLT COUNT & AUTO [id number] 20:12:00 Test Item Value Reference Range Interpretation [...] PERCENT (BEAKER) (test code = 2801) POCT-GLUCOSE [id number] 20:01:00 Test Item Value Reference Range Interpretation Comments POC-GLUCOSE METER 143 mg/dL 70-110 H : TESTED A T [facility] 6720 (BEAKER) (test code = [place], 1538) 41698: Mica Miner/Techni theo ID = [id number] for Liban Arnett BLOOD GAS, [id number] 19:54:00 Test Item Value Reference Range Interpretation [...] (test code = 1819) 24.0 % POCT-GLUCOSE [id number] 19:01:00 Test Item Value Reference Range Interpretation Comments POC-GLUCOSE METER 155 mg/dL 70-110 H : TESTED A T [facility] 6720 (BEAKER) (test code = [facility], 1538) 626[address]: Mica Miner/Techni theo ID = [id number] for GIDEON NUNEZ HEPATOBILIARY [id number] 18:38:00Please do at bedside. Thank you.FINAL REPORT PROCEDURE: HEPATOBILIARY SCAN CPT CODE: 64122 INDICATION: abdominal pain PROTOCOL: 5.3 mCi of [...] IMPRESSION: Normal hepatobiliary scan. Signed: Jeffery Alarcon MDReportVerified Date/Time: 10/07/2019 18:38:40 POCT-GLUCOSE [id number] 16:52:00 Test Item Value Reference Range Interpretation Comments POC-GLUCOSE METER 166 mg/dL 70-110 H : TESTED A T [facility] 6720 (BEAKER) (test code = [facility], 1538) 77160: Mica Miner/Techni theo ID = [id number] for SA LULURS, GIDEON PT/[id number] 16:40:00 Test Item Value Reference Range Interpretation [...] is 2.5-3.5 for patients wiht mechanical heart valves.[id number] 16:40:00 Test Item Value Reference Range Interpretation Comments FIBRINOGEN LEVEL (BEAKER) (test 156 mg/dl 225-434 L code = 658) PROTHROMBIN TIME/[id number] 16:39:00 Test Item Value Reference Range Interpretation [...] is 2.5-3.5 for patients wiht mechanical heart valves.[id number] 16:36:00 Test Item Value Reference Range Interpretation Comments PHOSPHORUS (BEAKER) (test code = 1.8 mg/dL 2.3-4.7 L 604) [id number] 16:36:00 Test Item Value Reference Range Interpretation Comments MAGNESIUM (BEAKER) (test code = 2.5 mg/dL 1.6-2.6 627) BASIC METABOLIC [id number] 16:36:00 Test Item Value Reference Range Interpretation [...] APPLICABLE FOR DIALYSIS PATIEN TS. BLOOD GAS, [id number] 16:22:00 Test Item Value Reference Range Interpretation [...] 25.0 % CBC W/PLT COUNT & AUTO [id number] 12:44:00 Test Item Value Reference Range Interpretation [...] PERCENT (BEAKER) (test code = 2801) POCT-GLUCOSE [id number] 12:23:00 Test Item Value Reference Range Interpretation Comments POC-GLUCOSE METER 145 mg/dL 70-110 H : TESTED A T [facility] 6720 (BEAKER) (test code = [place], 1538) 48731: Mica Miner/Techni theo ID = [id number] for SA NDERS, GIDEON [id number] 12:06:00 Test Item Value Reference Range Interpretation Comments T4 TOTAL (BEAKER) (test code = 895) 4.6 ug/dL 4.9-11.7 L [id number] 10:00:00 Test Item Value Reference Range Interpretation Comments PHOSPHORUS (BEAKER) (test code = 2.8 mg/dL 2.3-4.7 604) [id number] 10:00:00 Test Item Value Reference Range Interpretation Comments MAGNESIUM (BEAKER) (test code = 2.0 mg/dL 1.6-2.6 627) BASIC METABOLIC [id number] 10:00:00 Test Item Value Reference Range Interpretation [...] NOT APPLICABLE FOR DIALYSIS PATIEN TS. POCT-GLUCOSE [id number] 08:15:00 Test Item Value Reference Range Interpretation Comments POC-GLUCOSE METER 174 mg/dL 70-110 H : TESTED A T [facility] 6720 (BEAKER) (test code = [place], 1538) 90888: Mica Miner/Techni theo ID = [id number] for SA NDERS, GIDEON RAD, CHEST, 1 VIEW, NON [id number] 05:39:00Reason for exam:- >intubatedShould this be performed [...] Verified Date/Time: 10/07/2019 05:39:22 05:39 AMBLOOD GAS, [id number] 05:29:00 Test Item Value Reference Range Interpretation [...] (BEAKER) (test code = 1819) 40.0 % [id number] 05:07:00 Test Item Value Reference Range Interpretation [...] thrombosis is within 95-100% range. COMPREHENSIVE METABOLIC [id number] 04:59:00 Test Item Value Reference Range Interpretation [...] PATIEN TS. CBC W/PLT COUNT & AUTO [id number] 04:32:00 Test Item Value Reference Range Interpretation [...] 0-1 H PERCENT (BEAKER) (test code = 2804) [id number] 04:30:00 Test Item Value Reference Range Interpretation Comments PHOSPHORUS (BEAKER) (test code = 3.1 mg/dL 2.3-4.7 604) [id number] 04:30:00 Test Item Value Reference Range Interpretation Comments MAGNESIUM (BEAKER) (test code = 1.8 mg/dL 1.6-2.6 627) POCT-GLUCOSE [id number] 04:25:00 Test Item Value Reference Range Interpretation Comments POC-GLUCOSE METER 126 mg/dL 70-110 H : TESTED A T [facility] 6720 (BEAKER) (test code = LIV Dozier [facility], 1538) 17111: Mica Miner/Techni theo ID = [id number] for Liban Arnett [id number] 04:18:00 Test Item Value Reference Range Interpretation Comments FIBRINOGEN LEVEL (BEAKER) (test 173 mg/dl 225-434 L code = 658) [id number] 04:14:00 Test Item Value Reference Range Interpretation [...] for patients wiht mechanical heart valves.LACTIC ACID, [id number] 04:13:00 Test Item Value Reference Range Interpretation Comments LACTATE BLOOD VENOUS (2) (BEAKER) 1.2 mmol/L 0.5-2.2 (test code = 2872) POCT-GLUCOSE [id number] 01:33:00 Test Item Value Reference Range Interpretation Comments POC-GLUCOSE METER 103 mg/dL 70-110 : TESTED A T [facility] 6720 (BEAKER) (test code = [place]IV [place], 1538) [address]: Mica Miner/Techni theo ID = [id number] for GISELE CUETO HEMOGLOBIN AND [id number] 00:27:00 Test Item Value Reference Range Interpretation Comments HEMOGLOBIN (BEAKER) (test code = 8.6 GM/DL 11.2-15.7 L 410) HEMATOCRIT (BEAKER) (test code = 26.2 % 34.1-44.9 L 411) POCT-GLUCOSE [id number] 22:58:00 Test Item Value Reference Range Interpretation Comments POC-GLUCOSE METER 146 mg/dL 70-110 H : [facility] (BEAKER[facility] (test code = [place], 1538) [address]: Mica Miner/Techni theo ID = [id number] for GISELE CUETO RAD, CHEST, 1 VIEW, NON [id number] 21:37:00Reason for exam:->line placement, right IJShould this [...] surgical changes the left clavicle. Signed: [facility] Verified Date/Time: 10/06/2019 21:37:58 BASI METABOLIC [id number] 20:04:00 Test Item Value Reference Range Interpretation [...] APPLICABLE FOR DIALYSIS PATIEN TS. PROTEIN, RANDOM [id number] 19:50:00 Test Item Value Reference Range Interpretation Comments PROTEIN, URINE (BEAKER) (test code = 83 mg/dL 0-14 H 1569) CREATININE, RANDOM [id number] 19:28:00 Test Item Value Reference Range Interpretation Comments CREATININE URINE (BEAKER) (test 37.6 mg/dL code = 375) Reference Range: No [id number] 19:00:00 Test Item Value Reference Range Interpretation Comments MAGNESIUM (BEAKER) 2.0 mg/dL 1.6-2.6 Specimen slightly (test code = 627) hemolyzed [id number] 19:00:00 Test Item Value Reference Range Interpretation [...] 0-0 (test code = 413) LACTIC ACID, [id number] 18:55:00 Test Item Value Reference Range Interpretation Comments LACTATE BLOOD VENOUS 1.9 mmol/L 0.5-2.2 Specime n slightly (2) (BEAKER) (test hemolyzed code = 2872) VITAMIN B12 AND [id number] 18:36:00 Test Item Value Reference Range Interpretation Comments VITAMIN B12 (BEAKER) (test code = > pg/mL 213-816 H 774) FOLATE (BEAKER) (test code = 362) 17.3 ng/mL >=7.0 BLOOD GAS, [id number] 18:29:00 Test Item Value Reference Range Interpretation [...] code = 1819) 40.0 % BASIC METABOLIC [id number] 17:47:00 Test Item Value Reference Range Interpretation [...] NOT APPLICABLE FOR DIALYSIS PATIEN TS. POCT-GLUCOSE [id number] 17:39:00 Test Item Value Reference Range Interpretation Comments POC-GLUCOSE METER 188 mg/dL 70-110 H : TESTED A T [facility] 6720 (BEAKER) (test code = [place], 1538) 58[address]: Mica Miner/Techni theo ID = [id number] for GIDEON NUNEZ LIPID [id number] 17:28:00 Test Item Value Reference Range Interpretation [...] = 7.3 mg/dL 2.6-7.2 H 773) HEMOGLOBIN [id number] 16:13:00 Test Item Value Reference Range Interpretation Comments HEMOGLOBIN A1C (BEAKER) (test code = 6.0 % 4.3-6.1 368) HEPATITIS A ANTIBODY, [id number] 16:13:00 Test Item Value Reference Range Interpretation Comments HEPATITIS A IGG ANTIBODY (BEAKER) Reactive Nonreactive A (test code = 2797) CARCINOEMBRYONIC ANTIGEN (CEA)2019-10-06 16:08:00 Test Item Value Reference Range Interpretation Comments CARCINOEMBRYONIC ANTIGEN (BEAKER) 23.1 ng/mL 0.0-5.0 H (test code = 685) VITAMIN D, [id number] 16:08:00 Test Item Value Reference Range Interpretation Comments VITAMIN D 25-OH (BEAKER) (test 10.1 ng/mL 6.6-49.9 code = 2764) Effective 09/07/2017: Reference Range ChangeNew: 6.6-49.9 ng/mL Previous: 13.0- 47.8 ng/mLRecommendedVitamin D Target Range: 30.0-40.0 ng/mLTRANSFERRIN 2019-10-06 15:52:00 Test Item Value Reference Range Interpretation Comments TRANSFERRIN (BEAKER) (test code = 218 mg/dL 174-382 541) [id number] 15:09:00 Test Item Value Reference Range Interpretation Comments PHOSPHORUS (BEAKER) (test code = 1.7 mg/dL 2.3-4.7 L 604) U/S, ABDOMINAL, WITH [id number] 15:01:00Reason for exam:->acute liver injury, ? cholecystitis, [...] MDReport Verified Date/Time: 10/06/2019 15:01:21 Reading Location: [address] Consult Reading Room PREGNANCY SCREEN, [id number] 14:58:00 Test Item Value Reference Range Interpretation Comments TEST URINE (BEAKER) (test Negative code = 583) POCT-GLUCOSE [id number] 12:44:00 Test Item Value Reference Range Interpretation Comments POC-GLUCOSE METER 156 mg/dL 70-110 H : TESTED A T [facility] 6720 (BEAKER) (test code = [place], 1538) 27612: Mica Miner/Techni theo ID = [id number] for GIDEON NUNEZ [id number] 12:39:00 Test Item Value Reference Range Interpretation Comments RPR SCREEN (BEAKER) (test code = Nonreactive Nonreactive 420) B-TYPE NATRIURETIC FACTOR (BNP)2019-10-06 11:57:00 Test Item Value Reference Range Interpretation Comments B-TYPE NATRIURETIC PEPTIDE 3996 pg/mL 0-100 H (BEAKER) (test code = 700) [id number] 11:51:00 Test Item Value Reference Range Interpretation Comments MAGNESIUM (BEAKER) (test code = 2.2 mg/dL 1.6-2.6 627) BLOOD GAS, [id number] 11:50:00 Test Item Value Reference Range Interpretation [...] code = 1819) 50.0 % RESPIRATORY PANEL [id number] 11:35:00 Test Item Value Reference Range Interpretation [...] [facility] Molecular Diagnostics Laboratory using the [employer] Respiratory Panel. It is FDA cleared and has been verified and approved by the [facility] Molecular Diagnostics Laboratory for clinical use on nasopharyngeal swab specimens.The performance of the FilmArrayRP has not been established in individuals who received influenza vaccine. Recent administration of a nasal influenza vaccine may cause false positive results for Influenza A and/orInfluenza B.RETICULOCYTE [id number] 11:32:00 Test Item Value Reference Range Interpretation Comments RETICULOCYTE COUNT PCT (BEAKER) (test 2.1 % 0.5-1.7 H code = 575) KETONE, [id number] 11:30:00 Test Item Value Reference Range Interpretation Comments KETONES, BLOOD (BEAKER) (test code 0.3 mmol/L <0.4 = 1103) LEGIONELLA ANTIGEN, [id number] 09:37:00 Test Item Value Reference Range Interpretation Comments L. PNEUMOPHILA Negative - see Negative fo r L. SEROGP 1 UR AG comment pneumophila (BEAKER) (test code serogrou p 1 antigen, = 1156) suggesting no r ecent or current infe ction with this serog roup. Legionellosis c annot be ruled out si nce other serogroup s and species may cau se disease. STREP PNEUMONIAE [id number] 09:37:00 Test Item Value Reference Range Interpretation Comments STREP PNEUMONIAE Presumptive negative Presumptive negative ANTIGEN (BEAKER) for pneumococcal for pneumococcal (test code = 1615) pneumonia - see pneumonia - see comment commen Presumptive negative for pneumococcal pneumonia, suggesting no current or recent pneumococcal infection. Infection due to S. pneumoniae cannot be ruled out since the antigen present in the sample may be below the detection limit of the test. POCT-GLUCOSE [id number] 08:45:00 Test Item Value Reference Range Interpretation Comments POC-GLUCOSE METER 119 mg/dL 70-110 H : TESTED A T [facility] 6720 (BEAKER) (test code = [place]TANAHED LEE [place], 1538) [id number]: Mica Miner/Techni theo ID = [id number] for SA NDERS, GIDEON RAD, CHEST, 1 VIEW, NON [id number] 08:37:00Post-intubationReason for exam:- >intubationShould this be performed [...] MDReport Verified Date/Time: 10/06/2019 08:37:13 Reading Location: [facility] C013X [facility] Consult Reading Room Electronically signed by: AMANDA VAN M.D.on 10/06/2019 08:37 [id number] 07:44:00 Test Item Value Reference Range Interpretation Comments PROCALCITONIN (BEAKER) (test code 0.97 ng/mL <0.05 H = 3036) SEPSIS RISK (ng/mL)Low: 0.05-0.50Intermediate: 0.51-2.00High: >=2.01 URINALYSIS W/ REFLEX URINE [id number] 07:15:00 Test Item Value Reference Range Interpretation [...] code = 2795) ALPHA FETOPROTEIN (AFP), TUMOR [id number] 06:49:00 Test Item Value Reference Range Interpretation Comments ALPHA-FETOPROTEIN (BEAKER) (test code < ng/mL <10.0 = 1094) For 1 occurencesHEPATITIS B SURFACE [id number] 06:49:00 Test Item Value Reference Range Interpretation Comments HEPATITIS B SURFACE ANTIBODY < mIU/mL <8.0 (BEAKER) (test code = 647) For 1 occurencesRAPID DRUG SCREEN, [id number] 06:33:00 Test Item Value Reference Range Interpretation [...] situations. Chain of custody not maintained. Some fccd-myy-nynjtcl medications, as well as adulterants, may cause inaccurate results. Clinical correlation should be applied. A more comprehensive drug screen or confirmation of a detected drug may be performed upon request.CREATININE, RANDOM [id number] 06:30:00 Test Item Value Reference Range Interpretation Comments CREATININE URINE (BEAKER) (test 38.0 mg/dL code = 375) Reference Range: No NormalsSODIUM, RANDOM [id number] 06:30:00 Test Item Value Reference Range Interpretation Comments SODIUM URINE (BEAKER) (test code = 51 meq/L 243) Reference Range: No NormalsHEPATITIS B CORE ANTIBODY, [id number] 06:27:00 Test Item Value Reference Range Interpretation Comments HEPATITIS B CORE TOTAL ANTIBODY Nonreactive Nonreactive (BEAKER) (test code = 497) For 1 [id number] 05:50:00 Test Item Value Reference Range Interpretation Comments FERRITIN (BEAKER) (test code = 1588 ng/mL 5-275 H 361) For 1 occurencesACETAMINOPHEN [id number] 05:30:00 Test Item Value Reference Range Interpretation Comments ACETAMINOPHEN LEVEL (BEAKER) (test < ug/mL 10.0-30.0 L code = 344) Therapeutic Range: 10.0-30.0 g/mLToxic Levels: >200.0 g/mLFor 1 occurences [id number] 05:20:00 Test Item Value Reference Range Interpretation Comments ALPHA-1 ANTITRYPSIN (BEAKER) 266.90 mg/dL 90.00-200.00 H (test code = 502) [id number] 05:17:00 Test Item Value Reference Range Interpretation Comments THYROID STIMULATING HORMONE 0.75 uIU/mL 0.35-4.94 (BEAKER) (test code = 772) HEPATITIS PANEL, [id number] 05:17:00 Test Item Value Reference Range Interpretation Comments HEPATITIS A IGM ANTIBODY (BEAKER) Nonreactive Nonreactive (test code = 498) HEPATITIS B CORE IGM ANTIBODY Nonreactive Nonreactive (BEAKER) (test code = 645) HEPATITIS C ANTIBODY (BEAKER) Nonreactive Nonreactive (test code = 367) HEPATITIS B SURFACE ANTIGEN (2) Nonreactive Nonreactive (BEAKER) (test code = 2585) HIV-1 ANTIGEN WITH HIV-1/2 [id number] 05:17:00 Test Item Value Reference Range Interpretation Comments HIV-1 ANTIGEN WITH HIV 1\T\2 Nonreactive Nonreactive ANTIBODY (2) (BEAKER) (test code = 2586) BASIC METABOLIC [id number] 05:09:00 Test Item Value Reference Range Interpretation [...] APPLICABLE FOR DIALYSIS PATIEN TS. HEPATIC FUNCTION [id number] 05:09:00 Test Item Value Reference Range Interpretation [...] code = > U/L 6-55 H 347) [id number] 05:07:00 Test Item Value Reference Range Interpretation Comments PHOSPHORUS (BEAKER) (test code = 3.6 mg/dL 2.3-4.7 604) [id number] 05:07:00 Test Item Value Reference Range Interpretation [...] H (test code = 364) LACTIC ACID, [id number] 04:58:00 Test Item Value Reference Range Interpretation Comments LACTATE BLOOD ARTERIAL (2) 1.5 mmol/L 0.5-2.2 (BEAKER) (test code = 2874) [id number] 04:56:00 Test Item Value Reference Range Interpretation Comments ETHANOL (BEAKER) (test code = 400) < mg/dL <=10 [id number] 04:54:00 Test Item Value Reference Range Interpretation [...] L (test code = 2590) BLOOD GAS, [id number] 04:53:00 Test Item Value Reference Range Interpretation [...] 30.0 % CBC W/PLT COUNT & AUTO [id number] 04:53:00 Test Item Value Reference Range Interpretation [...] PERCENT (BEAKER) (test code = 2801) CALCIUM, [id number] 04:51:00 Test Item Value Reference Range Interpretation Comments CALCIUM IONIZED (BEAKER) (test 1.12 mmol/L 1.12-1.27 code = 698) PH, BLOOD (BEAKER) (test code = 7.35 1810) PROTHROMBIN TIME/[id number] 04:43:00 Test Item Value Reference Range Interpretation [...] is 2.5-3.5 for patients wiht mechanical heart valves.[id number] 04:43:00 Test Item Value Reference Range Interpretation Comments FIBRINOGEN LEVEL (BEAKER) (test 265 mg/dl 225-434 code = 658) [id number] 04:43:00 Test Item Value Reference Range Interpretation [...] for patients wiht mechanical heart valves.ACUTE HEPATITIS [id number] 06:15:00 Test Item Value Reference Range Interpretation [...] HCV Nucl eic Acid Amplification t est (468277).Perfor med At: [facility] [id number] [place], [place] [id number] kris Gould MD Ph:[phone] HIV 1 2 ANTIBODY [id number] 06:15:00 Test Item Value Reference Range Interpretation Comments AB HIV 1 2 (test code = NON REACTIVE SCREEN NONREACTIVE OOD40NP) AG HIV1 P24 (test code = NON REACTIVE P24 NONREACTIVE CPU1C28) - CT ABD PELVIS [id number] 12:57:00 Name: GINA MARIE [place] : 1965 Age/S: 53 / F [address] Unit #: [id number] Loc: [place] [address] Phys: Bryan Orta MD Acct: [id number] Dis Date: Status: ADM IN PHONE #: [phone] Exam Date: 03/09/2019 1200 FAX #: Reason: abd pain EXAMS: CPT: [id number] CT ABDPELVIS W/CONT 53241 LOCATION: T18 EXAM: CT ABDOMEN AND PELVIS [...] clearly seen. Prominent small bowel loops throughout theabdomen and pelvis. Moderate stool burden throughout the [...] Moore, RT(R)(CT); .. CTDI: DLP: Trnscb Date/Time: 10/2019 (1257) [id number].[email or web address] Orig Print D/T: S: 03/09/2019 (1300) CTDI: DLP: PAGE 1 Signed ReportBASIC METABOLIC [id number] 07:37:00 Test Item Value Reference Range Interpretation [...] = CA) 8.7 MG/DL 8.5-10.1 N T4 [id number] 07:37:00 Test Item Value Reference Range Interpretation Comments T4 FREE (test code = T4F) 0.70 NG/DL 0.89-1.76 L THYROID STIMULATING [id number] 07:37:00 Test Item Value Reference Range Interpretation Comments THYROID STIMULATING HORMONE 1.540 mcIU/ML 0.340-4.820 N (test code = TSH) ACUTE HEPATITIS [id number] 07:33:00 Test Item Value Reference Range Interpretation Comments AB HEPATITIS A IGM (test code = HAVMAB) AG HEPATITIS B SURFACE (test code = SCREEN NEGATIVE HBSAG) AB HEPATITIS B CORE IGM (test code = HBCMAB) AB HEPATITIS C (test code = HCVAB) RATIO <0.8 HIV 1 2 ANTIBODY [id number] 07:33:00 Test Item Value Reference Range Interpretation Comments AB HIV 1 2 (test code = NON REACTIVE SCREEN NONREACTIVE CDY49ZA) AG HIV1 P24 (test code = NON REACTIVE P24 NONREACTIVE GME2L01) GLYCOSYLATED HEMOGLOBIN [id number] 07:26:00 Test Item Value Reference Range Interpretation Comments GLYCOSYLATED HEMOGLOBIN (HA1C) 5.8 % A1C 4.2-6.3 N (test code = GLYHGB) ESTIMATED AVERAGE GLUCOSE (test 120 MG/DLest code = EAG) CBC W/AUTO [id number] 07:21:00 Test Item Value Reference Range Interpretation [...] DIFF/SCN CRITERIA MDIFF) - CT HEAD/BRAIN W/O [id number] 19:39:00 Name: GINA MARIE [place] : 1965 Age/S: 53 / F [id number] Unit #: [id number] Loc: [place] [address] Phys: Maria Morel MD Acct: [id number] Dis Date: Status: ADM IN PHONE #: [phone] Exam Date: 03/08/2019 1719 FAX #: Reason: near syncope EXAMS: CPT: [id number] CT HEAD/BRAIN W/O CONT 57207 CT head History: near syncope Comparison: None [...] PAGE 1 Signed ReportDRUGS OF ABUSE SCREEN [id number] 19:12:00 Test Item Value Reference Range Interpretation [...] NEGATIVE SCcutoff <300 NG/ML [place]) COMPREHENSIVE METABOLIC [id number] 17:26:00 Test Item Value Reference Range Interpretation [...] 45-117 N TOTAL (test code = ALKP) [id number] 17:26:00 Test Item Value Reference Range Interpretation Comments MAGNESIUM (test code = MAG) 1.9 MG/DL 1.8-2.4 N [id number] 17:26:00 Test Item Value Reference Range Interpretation Comments ALCOHOL (test code = ALC) < 3 MG/DL 0-10 N COMPREHENSIVE METABOLIC [id number] 17:21:00 Test Item Value Reference Range Interpretation [...] TOTAL (test Unit/L 45-117 code = ALKP) [id number] 17:21:00 Test Item Value Reference Range Interpretation Comments MAGNESIUM (test code = MAG) MG/DL 1.8-2.4 [id number] 17:21:00 Test Item Value Reference Range Interpretation Comments ALCOHOL (test code = ALC) MG/DL 0-10 CBC W/AUTO [id number] 17:08:00 Test Item Value Reference Range Interpretation [...] DIFF/SCN CRITERIA MDIFF) - XR CHEST 1 [id number] 16:33:00 Name: GINA MARIE [facility] : 1965 Age/S: 53 / F [address] Unit #: [id number] Loc: [place] [address] Phys: Maria Morel MD Acct: [id number] Dis Date: Status: PRE ER PHONE #: [phone] Exam Date: 03/08/2019 1628 FAX #: Reason: near syncope EXAMS: CPT: [id number] XR CHEST 1 V 85148 Fluoro Time: DAP (Gy m2): Air Kerma [...] PAGE 1 Signed Report Name: GINA MARIE [place] : 1965 Age/S: 53 / F [id number] Unit #: [id number] Loc: [place] [address] Phys: Maria Morel MD Acct: [id number] Dis Date: Status: PRE ER PHONE #: [phone] Exam Date: 03/08/2019 1620 FAX #: Reason: near syncope EXAMS: CPT: [id number] XR CHEST 1 V 12159 Fluoro Time: DAP (Gy m2): Air Kerma (mGy): (Continued) Technologist: Nanette Gordon RT(R)(CT) Trnscb Date/Time: 03/08/2019 (1633) [id number] Orig Print D/T: S: 03/08/2019 (1636) PAGE 2 Signed Report
[2023-09-29] MEDS ORDERED: KETOROLAC 30 MG/ML INJ ONE (10:33)
--- NOTE | 2023-09-29 11:10 | RAD REPORT ---
EXAM DESCRIPTION: RAD - Shoulder Left 2 View - 09/29/2023 10:52 am CLINICAL HISTORY: PAIN COMPARISON: Shoulder Left 2 View dated 09/15/2022; Chest Single View dated 10/05/2022 FINDINGS: Prominent diffuse osteopenia. Subtle nondisplaced fracture is likely present involving the greater tuberosity of the humeral head laterally. No dislocation.
--- NOTE | 2023-09-29 11:11 | RAD REPORT ---
EXAM DESCRIPTION: RAD - Elbow Left 3 View - 09/29/2023 10:52 am CLINICAL HISTORY: PAIN COMPARISON: <Comparisons> FINDINGS: No acute fracture or dislocation.
--- NOTE | 2023-09-29 11:12 | RAD REPORT ---
EXAM DESCRIPTION: RAD - Wrist Left 3 View - 09/29/2023 10:52 am CLINICAL HISTORY: PAIN Pain COMPARISON: <Comparisons> FINDINGS: Hardware is present in the distal radius and ulna. Diffuse osteopenia. No acute fracture o r dislocation.
--- NOTE | 2023-09-29 11:20 | ER ---
Nurse's Notes [facility] Name: Pratibha Jennings Age: 58 yrs Sex: Female : 1965 Arrival Date: 09/29/2023 Time: 09:45 Bed 12 Private MD: Diagnosis: Left humeral head fracture Presentation: 09/29 09:58 Chief complaint: Patient states: Fell on Tuesday tripping on walker/R foot. L arm pain ll1 isn't getting better. Coronavirus screen: Client denies travel out of the [place] in the last 14 days. At this time, the client does not indicate any symptoms associated with coronavirus-19. Ebola Screen: Patient denies travel to an Ebola-affected area in the 21 days before illness onset. Initial Sepsis Screen: Does the patient meet any 2 criteria? No. Patient's initial sepsis screen is negative. Does the patient have a suspected source of infection? No. Patient's initial sepsis screen is negative. Risk Assessment: Do you want to hurt yourself or someone else? Patient reports no desire to harm self or others. Onset of symptoms was September 25, 2023. 09:58 Method Of Arrival: Ambulatory ll1 09:58 Acuity: NUSRAT 4 ll1 11:32 Care prior to arrival: None. Mechanism of Injury: Fall from standing position. Trauma cp4 event details: Injury occurred: at home. 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 - Social history:: Smoking status: Patient reports the use of cigarette tobacco products, smokes one-half pack cigarettes per day. - Immunization history: Last tetanus immunization: - up to date. Screenin:14 [facility] ED Fall Risk Assessment (Adult) History of falling in the last 3 months, cp4 including since admission Yes- single mechanical fall (1 pt) Confusion or Disorientation No (0 pts) Intoxicated or Sedated No (0 pts) Impaired Gait Yes (1 pt) Mobility Assist Device Used Yes (1 pt) Altered Elimination No (0 pt) Score/Fall Risk Level 3 or more points = High Risk Oriented to surroundings, Maintained a safe environment, Educated pt \T\ family on fall prevention, incl call for assistance when getting out of bed, Hourly rounding (assess needs \T\ fall precautionary measures) done, Used ambulatory aids as needed (educated on \T\ assisted with). Abuse screen: Denies threats or abuse. Nutritional screening: No deficits noted. Tuberculosis screening: No symptoms or risk factors identified. Primary Survey: 11:32 NO uncontrolled hemorrhage observed. A: The client is awake and alert. The airway is cp4 patent. The client is alert. Airway: patent, Patient intubated prior to arrival Oxygen via non-rebreather No supplemental oxygen in use on arrival. Oral cavity: clear, Trachea midline. Breathing/Chest: Spontaneous respiratory effort, equal unlabored respirations, breath sounds clear bilaterally, regular pattern, symmetrical chest rise and fall. Respiratory effort: spontaneous, Breath sounds: clear, Respiratory pattern: regular, Chest inspection: symmetrical rise and fall of the chest. Circulation: No external hemorrhage present. Regular and strong central pulse, skin warm/dry/normal color. Disability Pupils are equal, round, reactive to light and accommodation. Client is alert. Exposure/Environment: A warming method has been applied: A warm blanket has been provided to the patient. Reassessment Alertness and Airway: Awake and alert. The airway is patent. Breathing: Spontaneous respiratory effort, equal unlabored respirations, breath sounds clear bilaterally, regular pattern with symmetrical chest rise and fall. Circulation: No external hemorrhage noted. Regular and strong central pulse, skin warm/dry/normal color. Disability: Pupils Pupils are equal, round, reactive to light and accomodation. Alert. Assessment: 10:14 General: Appears in no apparent distress. Behavior is calm, cooperative, appropriate cp4 for age. Pain: Complains of pain in left arm Pain currently is 7 out of 10 on a pain scale. Vital Signs: 09:58 BP 117 / 75; Pulse 56; Resp 17; Temp 97.9; Pulse Ox 100% ; Weight 65.77 kg; Height 5 ll1 ft. 4 in. ; Pain 8/10; 11:31 BP 131 / 81; Pulse 58; Resp 16; Pulse Ox 100% ; cp4 09:58 Body Mass Index 24.89 (65.77 kg, 162.56 cm) ll1 09:58 Pain Scale: Adult ll1 [place] Coma Score: 11:31 Eye Response: spontaneous(4). Motor Response: obeys commands(6). Verbal Response: cp4 oriented(5). Total: 15. Trauma Score (Adult): 11:31 Eye Response: spontaneous(1); Verbal Response: oriented(1); Motor Response: obeys cp4 commands(2); Systolic BP: > 89 mm Hg(4); Respiratory Rate: 10 to 29 per min(4); Boyd Score: 15; Trauma Score: 12 ED Course: 09:48 Patient arrived in ED. mg5 09:50 [facility]thorne [facility] jh7 09:50 Chetan Eller MD is Attending Physician. jh7 09:59 Triage completed. ll1 10:00 Arm band placed on Patient placed in an exam room, on a stretcher. ll1 10:14 Mayte Meraz is Primary Nurse. cp4 10:14 Bed in low position. Call light in reach. Side rails up X 1. Provided Education on: cp4 falls, arm pain. 10:14 No provider procedures requiring assistance completed. Patient did not have IV access cp4 during this emergency room visit. 10:54 XRAY Shoulder LEFT 2 view In Process Unspecified. EDMS 10:54 Elbow Left 3 View XRAY In Process Unspecified. EDMS 10:54 XRAY Wrist LEFT 3 view In Process Unspecified. EDMS 11:18 Silvino Daniels MD is Referral Physician. jh7 11:31 Patient maintains SpO2 saturation greater than 95% on room air. cp4 11:34 Thermoregulation: warm blanket given to patient. cp4 Administered Medications: 10:22 Drug: Ketorolac IM 60 mg IM once Route: IM; Site: right deltoid; cp4 11:30 Follow up: Response: No adverse reaction cp4 Medication: 10:14 VIS not applicable for this client. cp4 Intake: : PO: 0ml; Total: 0ml. cp4 Output: :31 Urine: 0ml; Total: 0ml. cp4 Outcome: 11:19 Discharge ordered by . adriana 11:31 Discharged to home ambulatory, cp4 11:31 Condition: stable 11:31 Discharge instructions given to patient, Instructed on discharge instructions, follow up and referral plans. Demonstrated understanding of instructions, follow-up care, 11:31 Patient's length of stay was not longer than 2 hours. 11:35 Patient left the ED. cp4 Signatures: Dispatcher [employer] Dania Hammond RN RN ll1 Roselia Hawthorne, AUDIO VISUAL PROJECT MANAGER AUDIO VISUAL PROJECT MANAGER 7 Liv Caraballo mg5 Mayte Meraz cp4
--- NOTE | 2023-09-29 11:20 | EDPHYS ---
Physician Documentation [facility] Name: Pratibha Jennings Age: 58 yrs Sex: Female : 1965 Arrival Date: 09/29/2023 Time: 09:45 Bed 12 Private MD: ED Physician Chetan Eller HPI: 09/29 09:59 This 58 yrs old Female presents to ER via Ambulatory with complaints of Fall Injury, jh7 Arm Pain. 09:59 Details of fall: The patient fell from an upright position, while walking. Onset: The jh7 symptoms/episode began/occurred 5 day(s) ago. Associated injuries: The patient sustained left arm. 58-year-old female reports left arm pain after tripping over her walker on Tuesday. Denies head injury or LOC. Reports that she is on a morphine pump for chronic back pain.. 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 - Social history:: Smoking status: Patient reports the use of cigarette tobacco products, smokes one-half pack cigarettes per day. - Immunization history: Last tetanus immunization: - up to date. ROS: 09:59 Constitutional: Negative for fever, chills, and weight loss, Neck: Negative for injury, jh7 pain, and swelling, Cardiovascular: Negative for chest pain, palpitations, and edema, Respiratory: Negative for shortness of breath, cough, wheezing, and pleuritic chest pain, Back: Negative for injury and pain, Skin: Negative for injury, rash, and discoloration, Neuro: Negative for headache, weakness, numbness, tingling, and seizure, 09:59 MS/extremity: Positive for injury or acute deformity, decreased range of motion, pain, tenderness, of the left arm, 09:59 All other systems are negative, Exam: :59 Constitutional: This is a well developed, well nourished patient who is awake, alert, jh7 and in no acute distress. Head/Face: Normocephalic, atraumatic. Neck: Trachea midline, no thyromegaly or masses palpated, and no cervical lymphadenopathy. Supple, full range of motion without nuchal rigidity, or vertebral point tenderness. No Meningismus. Cardiovascular: Regular rate and rhythm with a normal S1 and S2. No gallops, murmurs, or rubs. Normal PMI, no JVD. No pulse deficits. Respiratory: Lungs have equal breath sounds bilaterally, clear to auscultation and percussion. No rales, rhonchi or wheezes noted. No increased work of breathing, no retractions or nasal flaring. Abdomen/GI: Soft, non-tender, with normal bowel sounds. No distension or tympany. No guarding or rebound. No evidence of tenderness throughout. Back: No spinal tenderness. No costovertebral tenderness. Full range of motion. Skin: Warm, dry with normal turgor. Normal color with no rashes, no lesions, and no evidence of cellulitis. Neuro: Awake and alert, GCS 15, oriented to person, place, time, and situation. Normal gait. 09:59 Musculoskeletal/extremity: Extremities: ROM: limited active range of motion due to pain, in the left arm, Circulation is intact in all extremities. Pulses: are normal with no appreciated deficits, Sensation intact. Patient has difficulty with localizing pain. She screams whenever any part of her arm is touched. Reports that it hurts from her shoulder down to her wrist. No swelling or deformities noted.. Vital Signs: 09:58 BP 117 / 75; Pulse 56; Resp 17; Temp 97.9; Pulse Ox 100% ; Weight 65.77 kg; Height 5 ll1 ft. 4 in. ; Pain 8/10; 11:31 BP 131 / 81; Pulse 58; Resp 16; Pulse Ox 100% ; cp4 09:58 Body Mass Index 24.89 (65.77 kg, 162.56 cm) ll1 09:58 Pain Scale: Adult ll1 Boyd Coma Score: 11:31 Eye Response: spontaneous(4). Motor Response: obeys commands(6). Verbal Response: cp4 oriented(5). Total: 15. Trauma Score (Adult): 11:31 Eye Response: spontaneous(1); Verbal Response: oriented(1); Motor Response: obeys cp4 commands(2); Systolic BP: > 89 mm Hg(4); Respiratory Rate: 10 to 29 per min(4); Bishop Score: 15; Trauma Score: 12 MDM: 09:50 Patient medically screened. [facility] 11:18 Differential diagnosis: fracture, multiple trauma, sprain, strain. Data reviewed: vital [facility] signs, nurses notes, radiologic studies, plain films. I considered the following discharge prescriptions or medication management in the emergency department Medications were administered in the Emergency Department. See MAR. Care significantly affected by the following chronic conditions: Hypertension. Counseling: I had a detailed discussion with the patient and/or guardian regarding the historical points, exam findings, and any diagnostic results supporting the discharge/admit diagnosis, the need for outpatient follow up, a orthopedic surgeon, to return to the emergency department if symptoms worsen or persist or if there are any questions or concerns that arise at home. Response to treatment: the patient's symptoms have mildly improved after treatment. 09/29 10:14 Order name: XRAY Shoulder LEFT 2 view; Complete Time: 11:15 7 09/29 10:14 Order name: Elbow Left 3 View XRAY; Complete Time: 11:15 7 09/29 10:14 Order name: XRAY Wrist LEFT 3 view; Complete Time: 11:15 [facility] 09/29 11:15 Order name: Sling; Complete Time: 11:16 7 Administered Medications: 10:22 Drug: Ketorolac IM 60 mg IM once Route: IM; Site: right deltoid; cp4 11:30 Follow up: Response: No adverse reaction cp4 Disposition: 14:36 Co-signature as Attending Physician, Chetan Eller MD I reviewed the patient's care rt provided by the Advanced Practice Provider and agree with the diagnosis and treatment plan. Disposition Summary: 09/29/23 11:19 Discharge Ordered Notes: Location: Home [facility] Problem: new [facility] Symptoms: have improved [facility] Condition: Stable [facility] Diagnosis - Left humeral head fracture [facility] Followup: [facility] - With: Silvino Daniels MD - When: 2 - 3 days - Reason: Recheck today's complaints Discharge Instructions: - Discharge Summary Sheet [facility] - Humerus Fracture Treated With Immobilization [facility] - How to Use a Sling [facility] Forms: - Medication Reconciliation Form [facility] - Thank You Letter [facility] - Patient Portal Instructions 7 - Leadership Thank You Letter [facility] Signatures: Dispmarcoer Dania Perez RN RN 1 Roselia Hawthorne FNP FNP [facility] Chetan Eller MD MD rt Mayte Meraz cp4
[2023-09-29 11:53] VITALS: TEMP 97.9; O2SAT 100
[2023-09-29 11:55] VITALS: BP 131/81
== END 2023-09-29 11:35 | disposition home or self-care (01) ==
LOC: ER 09:45
DX: S42.302A Unspecified fracture of shaft of humerus, left arm, initial encounter for closed fracture (principal); F17.210 Nicotine dependence, cigarettes, uncomplicated; Z91.040 Latex allergy status; Z91.048 Other nonmedicinal substance allergy status
CPT/HCPCS: 96372; 99285

== ENCOUNTER 2023-11-08 04:58 | Emergency (ER) | payer OTHER ==
[2023-11-08] MEDS ORDERED: CYCLOBENZAPRINE 10 MG TAB ONE (05:50)
[2023-11-08] MEDS ORDERED: HYDROCODONE/APAP 5/325 MG TAB ONE (05:50)
[2023-11-08] MEDS ORDERED: IBUPROFEN 400 MG TAB ONE (05:51)
[2023-11-08] MEDS ORDERED: ONDANSETRON 4 MG (ODT) TAB ONE (05:51)
--- NOTE | 2023-11-08 07:21 | EDPHYS ---
Physician Documentation [facility] Name: Pratibha Jennings Age: 58 yrs Sex: Female : 1965 Arrival Date: 11/08/2023 Time: 04:58 Bed 12 Private MD: ED Physician Estuardo Epperson HPI: 11/08 05:23 This 58 yrs old Female presents to ER via Wheelchair with complaints of Fall sp4 Injury, Head Injury-Adult, Facial Injury, Facial Swelling. 05:30 Pleasant 58-year-old female presents after acute fall at home face forward onto the sp4 wastebasket. . 20:35 Patient reports right facial contusion, periorbital contusion, she reports right sp4 shoulder contusion, she reported some neck pain, head injury, no LOC. Patient states she has chronic blisters right lower extremity right foot as well and she is wearing Ortho boot also dressing on the right fourth and this causes her to periodically stumble and fall. Patient denies syncope. . 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; hepatic encephalopathy; Hyperlipidemia; Hypertension; Nerve damage; - PSHx: 05:11 bilateral knee repair; Disc removal; laparoscopy; Spinal surgery; Right knee kl replacement; morphine pain pump; Left wrist surgery; Left knee replacement; Left clavicle; - Immunization history:: Adult Immunizations Client reports receiving the 2nd dose of the Covid vaccine, Last tetanus immunization: unknown, Pneumococcal vaccine is up to date, Flu vaccine is up to date. - Social history:: Smoking status: Patient reports the use of cigarette tobacco products, smokes one-half pack cigarettes per day. - Family history:: not pertinent. ROS: 20:35 Constitutional: Negative for fever, chills, and weight loss, positive facial injury, sp4 positive facial contusion, positive head injury, positive right forearm skin tear, positive right shoulder injury. Positive acute fall at home 20:35 All other systems are negative, Exam: 20:35 Constitutional: This is a well developed, well nourished patient who is awake, alert, sp4 and in no acute distress. Head/Face: Normocephalic, positive right periorbital contusion right periorbital discoloration, positive periorbital contusion, no signs of dental injury, Eyes: Pupils equal round and reactive to light, extra-ocular motions intact. Lids and lashes normal. Conjunctiva and sclera are not injected. Cornea within normal limits. Positive right periorbital swelling and contusion with discoloration and hematoma ENT: Nares patent. No nasal discharge, no septal abnormalities noted. Tympanic membranes are normal and external auditory canals are clear. Oropharynx with no redness, swelling, or masses, exudates, or evidence of obstruction, uvula midline. Mucous membranes moist. Neck: Trachea midline, no thyromegaly or masses palpated, and no cervical lymphadenopathy. Supple, full range of motion without nuchal rigidity, or vertebral point tenderness. Chest/axilla: Normal chest wall appearance and motion. Nontender with no deformity. No lesions are appreciated. Cardiovascular: Regular rate and rhythm with a normal S1 and S2. No gallops, murmurs, or rubs. Normal PMI, no JVD. No pulse deficits. Respiratory: Lungs have equal breath sounds bilaterally, clear to auscultation and percussion. No rales, rhonchi or wheezes noted. No increased work of breathing, no retractions or nasal flaring. Abdomen/GI: Soft, non-tender, with normal bowel sounds. No distension or tympany. No guarding or rebound. No evidence of tenderness throughout. Back: No spinal tenderness. No costovertebral tenderness. Skin: Warm, dry with normal turgor. Normal color with no rashes, no lesions, and no evidence of cellulitis. MS/ Extremity: Pulses equal, no cyanosis. Neurovascular intact. Today the right shoulder decreased range of motion, positive right shoulder tenderness, negative deformity, negative discoloration, there is normal intact distal neurovascular status, there is mild to moderate the right forearm skin tear. Neuro: Awake and alert, GCS 15, oriented to person, place, time, and situation. Cranial nerves II-XII grossly intact. Motor strength 5/5 in all extremities. Sensory grossly intact. Psych: Awake, alert, with orientation to person, place and time. Behavior, mood, and affect are within normal limits Vital Signs: 05:10 BP 142 / 72; Pulse 54; Resp 16; Temp 96.9(O); Pulse Ox 98% on R/A; Weight 63.5 kg (R); kl Height 5 ft. 4 in. ; Pain 7/10; 05:10 Body Mass Index 24.03 (63.50 kg, 162.56 cm) kl 05:10 Pain Scale: Adult kl MDM: 05:43 Patient medically screened. sp4 06:56 ED course: X ray - IMPRESSION: 1. No evidence of acute osseous injury involving the sp4 right shoulder. There is mild narrowing of the glenohumeral joint. 2. Mild nonspecific coarsening of the interstitial lung markings. . 07:10 ED course: CT - IMPRESSION: CT HEAD: 1. No evidence of acute intracranial pathology. 2. sp4 Mild to moderate cerebral atrophy with findings compatible with chronic microangiopathy. 3. Questionable air-fluid level versus mucosal thickening in the dependent right maxillary sinus. 4. Right periorbital soft tissue swelling and right frontal scalp soft tissue swelling. CT CERVICAL SPINE: 1. No evidence of acute cervical spine injury. 2. Mild degenerative changes of the cervical spine as described above. 3. Mild centrilobular and paraseptal emphysematous changes in the lung apices. 4. Stable mild compression along the superior endplate of T1. 5. Trace retrolisthesis of C3 relative to C4 and trace anterolisthesis of C5 relative to C6. 6. Mild mucosal thickening in the right maxillary sinus. A small air-fluid level dependently cannot be excluded.. 07:11 ED course: CT - IMPRESSION: 1. No definite acute facial bone fracture. The osseous sp4 structures are grossly stable when compared to the prior study. 2. Right periorbital and right malar soft tissue swelling and soft tissue swelling anterior to the right hemimandible. 3. Mild mucosal thickening of the right maxillary sinus and trace mucosal thickening of the remaining paranasal sinuses. A small airfluid level in the dependent right maxillary sinus is not excluded. 4. Mild leftward deviation of the bony nasal septum. 5. Atherosclerotic calcifications along the cervical and cavernous carotid arteries. . 20:35 Differential diagnosis: abrasion, closed head injury, contusion, fracture, laceration, sp4 multiple trauma, sprain, strain. Data reviewed: vital signs, nurses notes, radiologic studies, CT scan, plain films. Consideration of Admission/Observation Escalation of care including admission/observation considered. ED course: Wound care provided to the skin tear, patient was given a right arm sling for comfort, patient then discharged home with as needed pain medications. Condition is stable. 11/08 05:30 Order name: CT Head C Spine sp4 11/08 05:30 Order name: CT Facial Bones W/O Con sp4 11/08 05:30 Order name: Shoulder Right (2 View) XRAY sp4 11/08 05:30 Order name: Wound Care; Complete Time: 08:06 sp4 11/08 07:18 Order name: Sling; Complete Time: 08:06 sp4 Administered Medications: 05:40 Drug: HYDROcodone-acetaminophen PO 5 mg-325 mg 2 tabs PO once Route: PO; kl 06:58 Follow up: Response: No adverse reaction; Marked relief of symptoms kl 05:40 Drug: Ibuprofen PO 400 mg PO once Route: PO; kl 06:57 Follow up: Response: No adverse reaction; Pain is decreased kl 05:40 Drug: Ondansetron PO 4 mg PO once Route: PO; kl 06:57 Follow up: Response: No adverse reaction; Marked relief of symptoms kl 05:40 Drug: Cyclobenzaprine PO 10 mg PO once Route: PO; kl 06:57 Follow up: Response: No adverse reaction; Marked relief of symptoms kl 07:30 Drug: traMADol PO 50 mg PO once Route: PO; hb 08:05 Follow up: Response: Medication administered at discharge. hb 07:30 Drug: MetoCLOPramide PO 10 mg PO once Route: PO; hb 07:32 Drug: Tetanus-Diphtheria Toxoid IM Adult 0.5 ml IM once; Provide Vaccine Information hb Statement (VIS). {Furniture Builder: Sling; Exp: TueJun 11 2027; Lot #: [id number]; Series: 1 of 1; Patient Consent: Obtained; Date/Time: ; Source Name: Pratibha Jennings; Source Relationship: Self; Address Information: [address] [place] [id number]; ; Education: Provided; VIS Presented Date: ; VIS Publication: Tetanus/Diphtheria (Td) Vaccine VIS 03/08/2017 (historic)} Route: IM; Site: right deltoid; 08:05 Follow up: Response: Medication administered at discharge. hb 08:06 Follow up: Response: No adverse reaction hb Disposition Summary: 11/08/23 07:21 Discharge Ordered Notes: Location: Home sp4 Problem: new sp4 Symptoms: have improved sp4 Condition: Fair sp4 Diagnosis - She will soft tissue contusion, closed head injury, right forearm skin tear, acute sp4 fall at home, acute right shoulder sprain Followup: sp4 - With: Private Physician - When: 7 - 10 days - Reason: Recheck today's complaints Discharge Instructions: - Discharge Summary Sheet sp4 - Contusion, [id number] sp4 Forms: - Patient Portal Instructions sp4 Prescriptions: - Zofran 4 mg Oral tablet - take 1 tablet ORAL route every 6 hours As needed PRN nausea; 30 tablet; sp4 Refills: 0, Product Selection Permitted - Cyclobenzaprine 10 mg Oral Tablet - take 1 tablet ORAL route every 8 hours As needed; 30 tablet; Refills: 0, sp4 Product Selection Permitted - Tramadol 50 mg Oral tablet - take 1 tablet ORAL route every 6 hours as needed; 20 tablet; Refills: 0, sp4 Product Selection Permitted Signatures: Dispatcher [employer] Katherine Hammond, RN RN Lissy Pena RN RN Estuardo Iverson MD MD sp4
--- NOTE | 2023-11-08 07:21 | ER ---
Nurse's Notes [facility] Name: Pratibha Jennings Age: 58 yrs Sex: Female : 1965 Arrival Date: 11/08/2023 Time: 04:58 Bed 12 Private MD: Diagnosis: She will soft tissue contusion, closed head injury, right forearm skin tear, acute fall at home, acute right shoulder sprain Presentation: 11/08 05:10 Chief complaint: Patient states: tripped and fell this am while going to bathroom kl denies LOC no active bleeding. Coronavirus screen: Vaccine status: Patient reports receiving the 2nd dose of the covid vaccine. Ebola Screen: Patient negative for fever greater than or equal to 101.5 degrees Fahrenheit, and additional compatible Ebola Virus Disease symptoms. Initial Sepsis Screen: Does the patient meet any 2 criteria? No. Patient's initial sepsis screen is negative. Does the patient have a suspected source of infection? No. Patient's initial sepsis screen is negative. Risk Assessment: Do you want to hurt yourself or someone else? Patient reports no desire to harm self or others. Onset of symptoms was November 08, 2023. 05:10 Method Of Arrival: Wheelchair 05:10 Acuity: NUSRAT 3 kl Triage Assessment: 05:13 General: Appears uncomfortable, well groomed, well developed, Behavior is calm, kl cooperative. Pain: Complains of pain in anterior aspect of right shoulder right eye and cheek Pain currently is 7 out of 10 on a pain scale. Neuro: No deficits noted. Cardiovascular: No deficits noted. Respiratory: No deficits noted. GI: No deficits noted. No signs and/or symptoms were reported involving the gastrointestinal system. : No deficits noted. No signs and/or symptoms were reported regarding the genitourinary system. Derm: Bruising that is bright red, dark purple, on right eye and right cheek. Derm: Reports abrasion to right forearm. Musculoskeletal: Reports pain in anterior aspect of right shoulder. 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; hepatic encephalopathy; Hyperlipidemia; Hypertension; Nerve damage; - PSHx: 05:11 bilateral knee repair; Disc removal; laparoscopy; Spinal surgery; Right knee kl replacement; morphine pain pump; Left wrist surgery; Left knee replacement; Left clavicle; Historical Immunization: - Administered Vaccines 07:32 Tetanus-Diphtheria Toxoid IM Adult 0.5 ml 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: [employer]; Exp: TueJun 11 2027; Lot #: [id number]; Series: 1 of 1; Patient Consent: Obtained; Date/Time: ; Source Name: Pratibha Jennings; Source Relationship: Self; Address Information: [address] [place] [address]; ; Education: Provided; VIS Presented Date: ; VIS Publication: Tetanus/Diphtheria (Td) Vaccine VIS 03/08/2017 (historic) 07:30 traMADol PO 50 mg hb 07:30 MetoCLOPramide PO 10 mg hb 05:40 HYDROcodone-acetaminophen PO 5 mg-325 mg 2 tabs kl 05:40 Ibuprofen PO 400 mg kl 05:40 Ondansetron PO 4 mg kl 05:40 Cyclobenzaprine PO 10 mg kl - Immunization history:: Adult Immunizations Client reports receiving the 2nd dose of the Covid vaccine, Last tetanus immunization: unknown, Pneumococcal vaccine is up to date, Flu vaccine is up to date. - Social history:: Smoking status: Patient reports the use of cigarette tobacco products, smokes one-half pack cigarettes per day. - Family history:: not pertinent. Screenin:56 Abuse screen: Denies threats or abuse. Nutritional screening: No deficits noted. kl Tuberculosis screening: No symptoms or risk factors identified. Fall risk At risk due to immobility, prior history of falls. 07:15 [facility] ED Fall Risk Assessment (Adult) Score/Fall Risk Level 3 or more points = High hb Risk Oriented to surroundings, Maintained a safe environment, Educated pt \T\ family on fall prevention, incl call for assistance when getting out of bed, Assessed \T\ reinforced patient's understanding of fall precautions, Hourly rounding (assess needs \T\ fall precautionary measures) done. Primary Survey: 06:54 NO uncontrolled hemorrhage observed. A: The client is awake and alert. The airway is kl patent. Breathing/Chest: Spontaneous respiratory effort, equal unlabored respirations, breath sounds clear bilaterally, regular pattern, symmetrical chest rise and fall. Circulation: No external hemorrhage present. Regular and strong central pulse, skin warm/dry/normal color. Disability Pupils are equal, round, reactive to light and accommodation. Exposure/Environment: A warming method has been applied: A warm blanket has been provided to the patient. Secondary Survey: 06:55 HEENT: Face Other bruising to right eye and cheek. Gastrointestinal: No deficits noted. kl : No deficits noted. Musculoskeletal: Reports pain in anterior aspect of right shoulder and right arm. Injury Description: contusion, hematoma to face and right cheek and right eye. Assessment: 06:54 General: Appears uncomfortable, Behavior is calm, cooperative. Neuro: No deficits noted. 07:15 Reassessment: Patient appears in no apparent distress at this time. Patient and/or hb family updated on plan of care and expected duration. Pain level reassessed. Patient is alert, oriented x 3, equal unlabored respirations, skin warm/dry/pink. Vital Signs: 05:10 BP 142 / 72; Pulse 54; Resp 16; Temp 96.9(O); Pulse Ox 98% on R/A; Weight 63.5 kg (R); kl Height 5 ft. 4 in. ; Pain 7/10; 05:10 Body Mass Index 24.03 (63.50 kg, 162.56 cm) 05:10 Pain Scale: Adult ED Course: 05:00 Patient arrived in ED. [id number] 05:11 Triage completed. kl 05:22 Estuardo Epperson MD is Attending Physician. sp4 05:51 Shoulder Right (2 View) XRAY In Process Unspecified. EDMS 06:00 CT Head C Spine In Process Unspecified. EDMS 06:00 CT Facial Bones W/O Con In Process Unspecified. EDMS 06:56 Patient has correct armband on for positive identification. kl 06:56 Patient maintains SpO2 saturation greater than 95% on room air. kl 08:06 Provided Education on: wound care, medications. hb 08:06 No provider procedures requiring assistance completed. Patient did not have IV access hb during this emergency room visit. Administered Medications: 05:40 Drug: HYDROcodone-acetaminophen PO 5 mg-325 mg 2 tabs PO once Route: PO; kl 06:58 Follow up: Response: No adverse reaction; Marked relief of symptoms kl 05:40 Drug: Ibuprofen PO 400 mg PO once Route: PO; kl 06:57 Follow up: Response: No adverse reaction; Pain is decreased kl 05:40 Drug: Ondansetron PO 4 mg PO once Route: PO; kl 06:57 Follow up: Response: No adverse reaction; Marked relief of symptoms kl 05:40 Drug: Cyclobenzaprine PO 10 mg PO once Route: PO; kl 06:57 Follow up: Response: No adverse reaction; Marked relief of symptoms kl 07:30 Drug: traMADol PO 50 mg PO once Route: PO; hb 08:05 Follow up: Response: Medication administered at discharge. hb 07:30 Drug: MetoCLOPramide PO 10 mg PO once Route: PO; hb 07:32 Drug: Tetanus-Diphtheria Toxoid IM Adult 0.5 ml IM once; Provide Vaccine Information hb Statement (VIS). 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 hb 08:06 Follow up: Response: No adverse reaction hb Outcome: 07:21 Discharge ordered by sp4 08:06 Discharged to home via wheelchair, with significant other, 08:06 Condition: stable 08:06 Discharge instructions given to patient, significant other, Instructed on discharge instructions, follow up and referral plans. medication usage, wound care, Demonstrated understanding of instructions, follow-up care, medications, wound care, Prescriptions given X 3, 08:07 Patient left the ED. Signatures: Dispatcher [employer] EDKatherine Crooks RN RN Lissy Ramirez RN RN hb Jeffries, Jennifer [email or web address] Estuardo Epperson MD MD sp4
[2023-11-08] MEDS ORDERED: TRAMADOL HCL 50 MG TAB ONE (07:43)
[2023-11-08] MEDS ORDERED: METOCLOPRAMIDE 5 MG TAB ONE (07:43)
[2023-11-08 08:13] VITALS: BP 142/72; TEMP 96.9; O2SAT 98
--- NOTE | 2023-11-08 11:00 | RAD REPORT ---
EXAM DESCRIPTION: CT maxillofacial without intravenous contrast CLINICAL HISTORY: 58 years Female facial injury TECHNIQUE: Axial CT of the facial bones was performed without intravenous contrast with sagittal and coronal reformatted images. The CT study is performed according to ALARA (as low as reasonably achie vable) or ALARA/IMAGE GENTLY, with automatic adjustment of mA and/or kV according to patient size. Performed on: 11/08/2023 at 5:37 AM COMPARISON: CT facial bones performed on 10/04/2022. FINDINGS: There is no evidence of acute facial bone fracture. The mandible is intact. The temporom andibular joints are preserved. The nasal bones are intact. There is mild leftward deviation of the b yvrose nasal septum. The anterior maxillary spine is intact. Both globes are intact and are symmetric. The extraocular muscles and optic nerves are symmetric. T he intraconal fat is preserved. There is no evidence of intraorbital emphysema. There is mild mucosal thickening of the right maxillary sinus and trace mucosal thickening of the rem aining paranasal sinuses. A small air-fluid level in the dependent right maxillary sinus is not exclu ded. The visualized mastoid air cells and middle ear cavities are clear. The ostiomeatal units are pa tent bilaterally. The nasal cavity is grossly unremarkable. There is right periorbital and right malar soft tissue swelling and soft tissue swelling anterior to the right hemimandible. The visualized portions of the brain are unremarkable. There are atherosclero tic calcifications along the cervical and cavernous carotid arteries. IMPRESSION: 1. No definite acute facial bone fracture. The osseous structures are grossly stable w hen compared to the prior study. 2. Right periorbital and right malar soft tissue swelling and soft tissue swelling anterior to the right hemimandible. 3. Mild mucosal thickening of the right maxillary sinus and trace mucosal thickening of the remaini ng paranasal sinuses. A small air-fluid level in the dependent right maxillary sinus is not excluded. 4. Mild leftward deviation of the bony nasal septum. 5. Atherosclerotic calcifications along the cervical and cavernous carotid arteries. Electronically signed by: Teetee Fam DO 11/08/2023 06:36 AM PREVENTATIVE MAINTENANCE TECHNICIAN Due to temporary technical issues with the PACS/Fluency reporting system, reports are being signed by the in house radiologists without review as a courtesy to insure prompt reporting. The interpreting radiologist is fully responsible for the content of the report.
--- NOTE | 2023-11-08 11:04 | RAD REPORT ---
EXAM DESCRIPTION: 1. CT HEAD without IV contrast. 2. CT CERVICAL SPINE without IV contrast. CLINICAL HISTORY: 58 years Female fall , head injury TECHNIQUE: Multiple axial CT images of the brain and cervical spine were performed followed by sagit iqra and coronal reconstructed images. The CT study is performed according to ALARA (as low as reasona onelia achievable) or ALARA/IMAGE GENTLY, with automatic adjustment of mA and/or kV according to patient size. Performed on: 11/08/2023 at 5:53 AM COMPARISON: Head CT and cervical spine CT performed on 10/04/2022. FINDINGS: CT HEAD: There is no evidence of mass, acute mass effect or midline shift. There are no acute extra-axial flui d collections. There is no evidence of acute intracranial hemorrhage. The cerebral sulci and ventricles are prominent consistent with mild to moderate cerebral volume loss . There are scattered areas of decreased attenuation within the subcortical and periventricular white m atter most likely due to mild chronic microangiopathy. There is a questionable air-fluid level versus mucosal thickening in the dependent right maxillary si nus. The remainder of the visualized paranasal sinuses are clear. The mastoid air cells are clear. The orbital contents are grossly unremarkable. No acute osseous abnormalities are identified. There is right periorbital soft tissue swelling and right frontal scalp soft tissue swelling. CT CERVICAL SPINE: The cervical vertebrae are normal in height. There is trace retrolisthesis of C3 relative to C4 and t race anterolisthesis of C5 relative to C6. The cervical vertebrae are otherwise normal in alignment. There is stable mild compression along the superior endplate of T1. There is no significant disc spac e narrowing throughout the cervical spine. Bone mineralization is normal. The atlanto-axial articu lation is preserved and the odontoid process is intact. There is normal alignment of the facet joints on the parasagittal images. There are mild degenerative changes of the facet joints. There is no evidence of acute fracture or subluxation. There is no significant canal stenosis. Ther e is mild left C5-C6 neural foraminal stenosis secondary to uncovertebral joint and facet joint hyper trophy. The prevertebral and paraspinal soft tissues are unremarkable. The lung apices reveal mild centrilobu lar and paraseptal emphysematous changes. There are mild fibrotic changes in the lung apices. The thy roid gland is grossly unremarkable. There is mild mucosal thickening in the right maxillary sinus. A small air-fluid level dependently cannot be excluded. There is trace mucosal thickening of the remain ing visualized paranasal sinuses. There is right periorbital soft tissue swelling. IMPRESSION: CT HEAD: 1. No evidence of acute intracranial pathology. 2. Mild to moderate cerebral atrophy with findings compatible with chronic microangiopathy. 3. Questionable air-fluid level versus mucosal thickening in the dependent right maxillary sinus. 4. Right periorbital soft tissue swelling and right frontal scalp soft tissue swelling. CT CERVICAL SPINE: 1. No evidence of acute cervical spine injury. 2. Mild degenerative changes of the cervical spine as described above. 3. Mild centrilobular and paraseptal emphysematous changes in the lung apices. 4. Stable mild compression along the superior endplate of T1. 5. Trace retrolisthesis of C3 relative to C4 and trace anterolisthesis of C5 relative to C6. 6. Mild mucosal thickening in the right maxillary sinus. A small air-fluid level dependently cannot be excluded. Electronically signed by: Teetee Fam DO 11/08/2023 06:26 AM INSIDE POLISHER Due to temporary technical issues with the PACS/Fluency reporting system, reports are being signed by the in house radiologists without review as a courtesy to insure prompt reporting. The interpreting radiologist is fully responsible for the content of the report.
--- NOTE | 2023-11-08 11:08 | RAD REPORT ---
EXAM DESCRIPTION: X-ray shoulder 2 views, right CLINICAL HISTORY: 58-year-old female with right shoulder pain TECHNIQUE: 2 x-ray views of the right shoulder were performed on 11/08/2023 at 5:42 AM. COMPARISON: None FINDINGS: There is no evidence of fracture or dislocation. There is mild narrowing of the glenohumer al joint. No focal lytic or sclerotic bone lesions are seen. Bone mineralization is grossly within normal limits. No focal soft tissue abnormalities are identified. There is mild nonspecific coarsening of the inters titial lung markings. IMPRESSION: 1. No evidence of acute osseous injury involving the right shoulder. There is mild narro wing of the glenohumeral joint. 2. Mild nonspecific coarsening of the interstitial lung markings. Electronically signed by: Teetee Fam DO 11/08/2023 06:02 AM COMPUTER SYSTEMS SUPPORT SPECIALIST Due to temporary technical issues with the PACS/Fluency reporting system, reports are being signed by the in house radiologists without review as a courtesy to insure prompt reporting. The interpreting radiologist is fully responsible for the content of the report.
== END 2023-11-08 08:07 | disposition home or self-care (01) ==
LOC: ER 04:58
DX: S00.83XA Contusion of other part of head, initial encounter (principal); S43.491A Other sprain of right shoulder joint, initial encounter; S51.811A Laceration without foreign body of right forearm, initial encounter; W18.30XA Fall on same level, unspecified, initial encounter; Y92.009 Unspecified place in unspecified non-institutional (private) residence as the place of occurrence of the external cause; F17.210 Nicotine dependence, cigarettes, uncomplicated; E78.5 Hyperlipidemia, unspecified; I10 Essential (primary) hypertension; Z23 Encounter for immunization; Z96.653 Presence of artificial knee joint, bilateral; Z91.040 Latex allergy status; Z91.048 Other nonmedicinal substance allergy status
CPT/HCPCS: 70450; 72125; 70486; 76377; 73030; Q0162

== ENCOUNTER 2024-01-30 12:02 | Inpatient (IN) | payer OTHER ==
[2024-01-30 13:17] LABS: Absolute Basophils 0.1 K/uL (0-0.5); Absolute Eosinophils 0.1 K/uL (0-0.5); Absolute Lymphocytes (CBC) 1.8 K/uL (0.7-4.9); Absolute Monocytes 1.1 K/uL (0.1-1.3); Absolute Neutrophil 9.4 K/uL (1.8-8.0); Basophils % 0.6 % (0-1.3); Eosinophils % 0.9 % (0-4.4); Hematocrit 39.5 % (36.0-45.0); Hemoglobin 13.2 g/dL (12.0-15.0); Lymphocytes % 14.8 % (15.3-44.8); MCH 28.8 pg (27.0-35.0); MCHC 33.4 g/dL (32.0-36.0); MCV 86.4 fL (80-100); MPV 8.5 fL (7.6-11.3); Monocytes % 8.6 % (3.3-12.3); Neutrophils % 75.1 % (41.7-73.7); Platelets 237 thou/uL (152-406); RBC Red Blood Cell Count 4.58 M/uL (3.86-4.86)
[2024-01-30 13:23] LABS: PT Prothrombin Time 12.9 SECONDS (9.5-12.5); PTT, Activated Partial Thromb 33.7 SECONDS (24.3-36.9); Protime INR 1.18
[2024-01-30 13:42] LABS: Albumin 3.3 g/dL (3.4-5.0); Albumin/Globulin Ratio 0.8 (1.1-1.8); Anion Gap 11.4 mEq/L (5.0-15.0); Bilirubin Total 0.6 mg/dL (0.2-1.0); Globulin 4.2 g/dL (2.3-3.5); Potassium 4.4 mEq/L (3.5-5.1); Protein, Total 7.5 g/dL (6.4-8.2)
--- NOTE | 2024-01-30 13:51 | RAD REPORT ---
EXAM DESCRIPTION: RAD - Foot Right 3 View - 01/30/2024 12:52 pm CLINICAL HISTORY: draining wound bottom of foot, eval for osteo COMPARISON: Foot Right 3 View dated 02/12/2020; Foot Right 3 View dated 11/17/2016 TECHNIQUE: Right foot, 3 views. FINDINGS: No fracture, dislocation or periosteal reaction. Persistent flexion at the second and thir d interphalangeal joints somewhat limits evaluation. Pronounced soft tissue swelling about the forefoot to midfoot, particularly along the dorsal. No air or foreign body in the soft tissues. IMPRESSION: Soft tissue swelling as above, without acute osseus abnormality. If there is persistent concern for ongoing osteomyelitis, MRI would provide improved evaluation.
--- NOTE | 2024-01-30 14:33 | ER ---
Nurse's Notes [facility] Name: Pratibha Jennings Age: 58 yrs Sex: Female : 1965 Arrival Date: 01/30/2024 Time: 12:02 Bed 6 Private MD: Henry Lopez Diagnosis: Cellulitis of right lower limb Presentation: 01/29 12:17 Chief complaint: Spouse and/or significant other states: wound to right foot caused by iw a brace, has been seen at wound healing for it in past. Coronavirus screen: At this time, the client does not indicate any symptoms associated with coronavirus-19. Ebola Screen: Patient negative for fever greater than or equal to 101.5 degrees Fahrenheit, and additional compatible Ebola Virus Disease symptoms Patient denies exposure to infectious person. Patient denies travel to an Ebola-affected area in the 21 days before illness onset. No symptoms or risks identified at this time. Initial Sepsis Screen: Does the patient meet any 2 criteria? No. Patient's initial sepsis screen is negative. Does the patient have a suspected source of infection? No. Patient's initial sepsis screen is negative. Risk Assessment: Do you want to hurt yourself or someone else? Patient reports no desire to harm self or others. Onset of symptoms was January 30, 2024. 12:17 Method Of Arrival: Wheelchair iw 12:17 Acuity: NUSRAT 3 iw Historical: - Allergies: 12:18 Iodine; topical; iw 12:18 Latex; iw - PMHx: 12:18 ADD/ADHD; Hyperlipidemia; Back pain; Hypertension; hepatic encephalopathy; Chronic iw pain; Degenerative disc disease; right droop foot; Nerve damage; dry gangrene to bilateral foot; - PSHx: 12:18 Disc removal; Left clavicle; Left knee replacement; laparoscopy; morphine pain pump; iw Left wrist surgery; Right knee replacement; bilateral knee repair; Spinal surgery; - Immunization history:: Adult Immunizations up to date. - Family history:: not pertinent. - Social history:: Smoking status: Patient reports the use of cigarette tobacco products, smokes one-half pack cigarettes per day. - Hospitalizations: : No recent hospitalization is reported. Screenin:20 [facility] ED Fall Risk Assessment (Adult) History of falling in the last 3 months, rs5 including since admission No falls in past 3 months (0 pts) Confusion or Disorientation No (0 pts) Intoxicated or Sedated No (0 pts) Impaired Gait Yes (1 pt) Mobility Assist Device Used Yes (1 pt) Altered Elimination No (0 pt) Score/Fall Risk Level 0 - 2 = Low Risk Oriented to surroundings, Maintained a safe environment. Abuse screen: Denies threats or abuse. Nutritional screening: No deficits noted. Tuberculosis screening: No symptoms or risk factors identified. Assessment: 12:20 General: Appears in no apparent distress. uncomfortable, Behavior is calm, cooperative. rs5 Pain: Denies pain. Neuro: Level of Consciousness is awake, alert, obeys commands, Oriented to person, place, time, situation. 12:20 Cardiovascular: Patient's skin is warm and dry. Rhythm is regular. Respiratory: rs5 Respiratory effort is even, unlabored, Respiratory pattern is regular, symmetrical. GI: Abdomen is flat, non-distended, Abd is soft and non tender X 4 quads. : No signs and/or symptoms were reported regarding the genitourinary system. EENT: No signs and/or symptoms were reported regarding the EENT system. Derm: Skin is intact, Skin is pink, warm \\T\\ dry. dime sized wound noted to bottom of pt's right foot, no bleeding, redness or signs of infection noted. quarter sized bruise noted to back of pt's ankle. Pt states "I have a dropped foot on my right leg and I use a device that helps me walk but it caused me to have a bruise and a small wound on my right foot. I get wound care with Dr. Valenzuela once a week". Musculoskeletal: Range of motion: limited in right foot. Vital Signs: 12:17 BP 102 / 78; Pulse 55; Resp 16; Temp 98.4; Pulse Ox 95% on R/A; Weight 63.5 kg; Height iw 5 ft. 4 in. ; Pain 0/10; 12:17 Body Mass Index 24.03 (63.50 kg, 162.56 cm) iw 12:17 Pain Scale: Adult iw ED Course: 12:04 Patient arrived in ED. rg4 12:05 Henry Lopez MD is Private Physician. rg4 12:05 Rigoberto Carmichael MD is Attending Physician. rn 12:18 Triage completed. iw 12:19 Arm band placed on. iw 12:20 Patient has correct armband on for positive identification. Placed in gown. Bed in low rs5 position. Call light in reach. Side rails up X2. 12:32 Yessy Fry, RN is Primary Nurse. ko1 12:53 XRAY Foot RIGHT 3 View In Process Unspecified. EDMS 14:32 Flako Carmichael MD is Hospitalizing Provider. rn 14:35 No provider procedures requiring assistance completed. rs5 Administered Medications: 14:31 CANCELLED (Duplicate Order): ns 0.9% (20 ml/kg) 20 ml/kg IV at 1 bolus once rn 15:00 Drug: vancoMYCIN IVPB 1 grams IVPB once over 2 hrs Route: IVPB; Infused Over: 2 hrs; rs5 Site: left antecubital; 15:00 Drug: NS 0.9% IV (30 ml/kg) 30 ml/kg IV at bolus once; Sepsis Protocol Route: IV; Rate: rs5 bolus; Site: left antecubital; Medication: 14:36 VIS not applicable for this client. rs5 Outcome: 14:32 Decision to Hospitalize by Provider. rn 16:47 Patient left the ED. 6 Signatures: Dispatcher [employer] EDMS Leola Fleming RN RN iw Nieto, Roman, MD MD rn Garcia, Rubi rg4 Yessy Fry, RN RN koEdward Marrero RN RN rs5 Danica Land bc6
--- NOTE | 2024-01-30 14:33 | EDPHYS ---
Physician Documentation [facility] Name: Pratibha Jennings Age: 58 yrs Sex: Female : 1965 Arrival Date: 01/30/2024 Time: 12:02 Bed 6 Private MD: Henry Lopez ED Physician Rigoberto Carmichael HPI: 01/29 12:36 This 58 yrs old Female presents to ER via Wheelchair with complaints of Wound Infection.rn 12:36 The patient presents with cellulitis of the right foot. Onset: The symptoms/episode rn began/occurred 3 day(s) ago. Possible cause(s): unknown. Associated signs and symptoms: Pertinent positives: drainage, erythema, swelling, Pertinent negatives: fever. Modifying factors: the symptoms are alleviated by nothing, the symptoms are aggravated by pressure. Severity of symptoms: At their worst the symptoms were moderate, in the emergency department the symptoms are unchanged. The patient has experienced a previous episode. Patient reports has had a pressure ulceration to the bottom of the foot since last July. Has been using a brace again and feels like there is increased pressure to the bottom and heel left foot. Noticed redness and swelling to the right foot starting 3 days ago. No fever or chills. No systemic symptoms.. 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 - Family history:: not pertinent. - Social history:: Smoking status: Patient reports the use of cigarette tobacco products, smokes one-half pack cigarettes per day. - Hospitalizations: : No recent hospitalization is reported. ROS: 12:36 Constitutional: Negative for fever, chills, and weight loss, Neck: Negative for injury, rn pain, and swelling, Cardiovascular: Negative for chest pain, palpitations, and edema, Respiratory: Negative for shortness of breath, cough, wheezing, and pleuritic chest pain, Abdomen/GI: Negative for abdominal pain, nausea, vomiting, diarrhea, and constipation, MS/Extremity: Positive for swelling of the right foot to right ankle Skin: Positive for redness and warmth to the right foot Neuro: Negative for headache, weakness, numbness, tingling, and seizure, Exam: 12:36 Constitutional: This is a well developed, well nourished patient who is awake, alert, rn and in no acute distress. Cardiovascular: Regular rhythm, bradycardic. No pulse deficits. Respiratory: No increased work of breathing, no retractions or nasal flaring. MS/ Extremity: Pulses equal, no cyanosis. Neurovascular intact. Full, normal range of motion. Positive for 1 and half centimeter ulceration and open wound to the bottom of the right foot near the base of the fourth and fifth toes. Some purulent drainage noted on bandages. No active drainage during examination. Moderate swelling and erythema with warmth to the circumferential right foot to the right ankle. No proximal streaking. No crepitus 13:30 ECG was reviewed by the Attending Physician. rn Vital Signs: 12:17 BP 102 / 78; Pulse 55; Resp 16; Temp 98.4; Pulse Ox 95% on R/A; Weight 63.5 kg; Height iw 5 ft. 4 in. ; Pain 0/10; 12:17 Body Mass Index 24.03 (63.50 kg, 162.56 cm) iw 12:17 Pain Scale: Adult iw MDM: 12:05 Patient medically screened. rn 14:31 Differential diagnosis: cellulitis. Data reviewed: vital signs, nurses notes, lab test rn result(s), radiologic studies, plain films, and as a result, I will admit patient. Consideration of Admission/Observation Patient was admitted/placed on observation. Escalation of care including admission/observation considered. Counseling: I had a detailed discussion with the patient and/or guardian regarding the historical points, exam findings, and any diagnostic results supporting the discharge/admit diagnosis, lab results, radiology results, the need for further work-up and treatment in the hospital. ED course: Patient with cellulitis, lactate normal, currently does not meet severe sepsis criteria. Blood pressure little on the low side, fluid bolus 30/kg ordered. Will reevaluate response to fluid bolus. Antibiotics ordered after blood cultures and lactate obtained.. 01/29 12:12 Order name: Blood Culture Adult (2) rn 01/29 12:12 Order name: CBC with Diff; Complete Time: 13:42 rn 01/29 12:12 Order name: CMP; Complete Time: 13:42 rn 01/29 12:12 Order name: Lactate w/ 2H reflex if indic.; Complete Time: 13:55 rn 01/29 12:12 Order name: Protime (+inr); Complete Time: 13:42 rn 01/29 12:12 Order name: Ptt, Activated; Complete Time: 13:42 rn 01/29 12:30 Order name: Wound Culture rn 01/29 12:12 Order name: XRAY Foot RIGHT 3 View; Complete Time: 13:55 rn 01/29 12:12 Order name: EKG; Complete Time: 12:13 rn 01/29 12:12 Order name: Accucheck; Complete Time: 13:45 rn 01/29 12:12 Order name: Cardiac monitoring; Complete Time: 13:45 rn 01/29 12:12 Order name: EKG - Nurse/Tech; Complete Time: 13:45 rn 01/29 12:12 Order name: IV Saline Lock - Large Bore; Complete Time: 13:45 rn 01/29 12:12 Order name: Labs collected and sent; Complete Time: 13:45 rn 01/29 12:12 Order name: O2 Per Protocol; Complete Time: 13:45 rn 01/29 12:12 Order name: O2 Sat Monitoring; Complete Time: 13:45 rn 01/29 12:12 Order name: Vital Signs; Complete Time: 13:45 rn EC:30 Rate is 50 beats/min. Rhythm is regular. QRS [place] is Normal. [place] interval is normal. QRS rn interval is normal. QT interval is normal. No Q waves. T waves are Normal. No ST changes noted. Clinical impression: Sinus bradycardia. Interpreted by me. Reviewed by me. Administered Medications: 14:31 CANCELLED (Duplicate Order): ns 0.9% (20 ml/kg) 20 ml/kg IV at 1 bolus once rn 15:00 Drug: vancoMYCIN IVPB 1 grams IVPB once over 2 hrs Route: IVPB; Infused Over: 2 hrs; rs5 Site: left antecubital; 15:00 Drug: NS 0.9% IV (30 ml/kg) 30 ml/kg IV at bolus once; Sepsis Protocol Route: IV; Rate: rs5 bolus; Site: left antecubital; Disposition Summary: 01/30/24 14:32 Hospitalization Ordered Notes: Hospitalization Status: Inpatient Admission rn Provider: Flako Carmichael rn Condition: Stable rn Problem: new rn Symptoms: have improved rn Bed/Room Type: Standard rn Location: Intensive Care Unit(01/30/24 15:41) rajeev Room Assignment: 5-(01/30/24 15:41) [facility] Diagnosis - Cellulitis of right lower limb rn Forms: - Medication Reconciliation Form rn - SBAR form rn - Leadership Thank You Letter rn Signatures: Dispatcher [employer] Leola Cherry RN Rigoberto Moran MD MD rn Aguilar, Jose, RN RN ja1 Sotelo, Ricky, RN RN rs5 Corrections: (The following items were deleted from the chart) 14:31 14:27 NS 0.9% IV (20 ml/kg) 20 ml/kg IV at 1 bolus once ordered. brown dasilva 15:41 14:32 Telemetry/MedSurg (Inpatient) brown fowler 15:41 14:32 brown fowler
[2024-01-30] MEDS ORDERED: NA CHLORIDE 0.9% 2,000 ML ONE (14:47)
[2024-01-30] MEDS ORDERED: VANCOMYCIN 1 GM/VIAL ONE (14:47)
[2024-01-30] MEDS ORDERED: NA CHLORIDE 0.9% 250 ML ONE (14:47)
--- NOTE | 2024-01-30 17:13 | P.HP ---
Certification for Inpatient Patient admitted to: Inpatient With expected LOS: >2 Midnights Patient will require the following post-hospital care: None Practitioner: I am a practitioner with admitting privileges, knowledge of patient current condition, hospital course, and medical plan of care. Services: Services provided to patient in accordance with Admission requirements found in Title 42 Section 412.3 of the Code of Federal Regulations Patient History Date of Service: 01/30/24 Reason for admission: Right lower extremity wound, cellulitis History of Present Illness: 58-year-old female with history of hypertension, hyperlipidemia, chronic pain, GERD, right foot drop presents to the emergency department with chief complaint of concern for infection of right foot. She follows Dr. Valenzuela with wound healing, had a brace for her right sided foot drop which she believes has been rubbing her foot wrong. She was last seen 5 days ago and wound healing and foot was looking good, last 3 days she is noticed increased erythema, swelling and worsening of the foot wound especially on the plantar aspect. She was evaluated in the emergency department her labs are significant for white blood cell count of 12.5 sodium 133 x-ray of the foot was obtained which revealed soft tissue swelling without acute osseous abnormality. Only SIRS criteria present currently is leukocytosis, she did have some borderline low blood pressures but did respond to IV fluids. She will be admitted for further evaluation and management of her right lower extremity cellulitis/wound. She did receive 30 cc/kg IV fluid bolus in ED as well as vancomycin. Lactate is less than 2. Allergies Latex, Natural Rubber Allergy (Verified 09/01/23 14:01) Hives/Rash TOPICAL IODINE Allergy (Mild, Uncoded 09/01/23 14:01) Hives/Rash Home Medications: Dexlansoprazole [Dexlansoprazole Dr] 60 mg PO DAILY 09/06/22 Sucralfate [Carafate*] 1 tab PO DAILY 09/06/22 Fluoxetine HCl [Prozac] 80 mg PO DAILY 09/16/22 Gabapentin 600 mg PO TID 10/06/22 Topiramate 50 mg PO BID 10/06/22 Amlodipine [Norvasc*] 10 mg PO DAILY #30 tab 10/12/22 Amox/Clavulanate [Augmentin 875-125 Tab] 1 each PO BID #14 tab 10/12/22 Hydrocodone 10/APAP 325 [Mcdaniels 10/325*] 1 tab PO Q6H PRN #30 tab 10/12/22 Metoprolol Tartrate [Lopressor] 50 mg PO BID #60 tab 10/12/22 Temazepam [Restoril*] 15 mg PO BEDTIME PRN PRN #20 cap 10/12/22 Thiamine HCl [Vitamin B-1*] 100 mg PO DAILY #30 tablet 10/12/22 chlordiazePOXIDE HCl [Chlordiazepoxide HCl] 10 mg PO TID #60 cap 10/12/22 - Past Medical/Surgical History Diabetic: No -: htn -: chronic back pain -: anxiety -: hyperlipidemia -: degenerative disc disease -: ADD/ADHD -: chronic back pain -: Right foot drop -: Pain pump -: spinal implant stimulator-removed -: back surgery (herniated disc) -: left wrist -: Clavicle sx 10/16 -: Pain pumpmorphine Psychosocial/ Personal History: Patient is . Lives at home with her - Family History Mother -: Hypertension, Diabetes Notes: hyperlipidemia - Social History Smoking Status: Never smoker Alcohol use: Yes CD- Drugs: No Caffeine use: Yes Place of Residence: Home Review of Systems 10-point ROS is otherwise unremarkable Musculoskeletal: Foot Pain Integumentary: As per HPI Physical Examination - Vital Signs Temperature: 98.4 F Blood Pressure: 102/78 Pulse: 55 Respirations: 16 - Physical Exam General: Alert, In no apparent distress, Oriented x3 HEENT: Atraumatic, PERRLA, Mucous membr. moist/pink Neck: Supple, 2+ carotid pulse no bruit, No LAD Respiratory: Clear to auscultation bilaterally, Normal air movement Cardiovascular: Regular rate/rhythm, Normal S1 S2 Gastrointestinal: Normal bowel sounds, No tenderness Musculoskeletal: No tenderness Integumentary: Other (Wound to the plantar aspect of the right foot, erythema, swelling of the right foot) Neurological: Normal speech, Normal tone, Normal affect, Other (Right foot drop noted) - Studies Laboratory Data (last 24 hrs) 01/30/24 01/30/24 01/30/24 13:00 13:00 13:00 WBC 12.50 H Hgb 13.2 Hct 39.5 Plt Count 237 PT 12.9 H INR 1.18 APTT 33.7 Sodium 133 L Potassium 4.4 BUN 12 Creatinine 0.78 Glucose 104 Total Bilirubin 0.6 AST 65 H ALT 61 H Alkaline Phosphatase 87 Assessment and Plan - Plan Assessment: Wound plantar aspect right foot, right lower extremity cellulitis Right foot drop Hypertension Chronic pain GERD Plan: Wound plantar aspect right foot, right lower extremity cellulitis Right foot drop General surgeryDr. Valenzuela consulted as he follows her in wound healing White blood cell count 12.5, no other SIRS criteria at this time does not meet sepsis criteria Blood pressure soft in ED given 30 cc/kg IV fluid bolus, lactate less than 2. Blood pressure has responded to fluids Continue antibiotics vancomycin/cefepime, n.p.o. after midnight in case of need for surgical invention has right foot drop from previous spinal injection Hypertension Hold oral antihypertensives as patient blood pressure is soft at this time Resume when blood pressure becomes more persistently elevated Takes amlodipine, metoprolol at home Chronic pain Has morphine pain pump in place Previously had spinal stimulator that has since been removed GERD Continue Carafate, Dexilant DVT PPX: Lovenox Code status: Full Discharge Plan: Home Plan to discharge in: 72 Hours - Advance Directives Does patient have a Living Will: No Does patient have a Durable POA for Healthcare: No - Code Status/Comfort Care Code Status Assessed: Yes (Full code) Critical Care: No Time Spent Managing Pts Care (In Minutes): 70
[2024-01-30] MEDS ORDERED: ACETAMINOPHEN 500 MG TAB PO PRN (17:25)
[2024-01-30] MEDS ORDERED: GABAPENTIN 300 MG CAP ONE (17:34)
[2024-01-30] MEDS: GABAPENTIN 300 MG CAP PO SCH (17:41)
[2024-01-30] MEDS ORDERED: NA CHLORIDE 0.9% 100 ML ONE ×2 (17:45→18:48)
[2024-01-30] MEDS ORDERED: CEFEPIME 2 GM VIAL ONE (17:45)
[2024-01-30] MEDS: CEFEPIME 2 GM in NA CHLORIDE 0.9% 100 ML IV SCH (17:46)
[2024-01-30] MEDS ORDERED: VANCOMYCIN 500 MG/VIAL ONE (18:48)
[2024-01-30] MEDS: VANCOMYCIN 500 MG in NA CHLORIDE 0.9% 100 ML IVPB ONE (18:50)
[2024-01-30] MEDS: SUCRALFATE 1 GM TABLET PO SCH (21:02)
[2024-01-30] MEDS: FLUOXETINE 20 MG CAP PO SCH (21:03)
[2024-01-30] MEDS: TRAZODONE 50 MG TABLET PO SCH (21:03)
[2024-01-30] MEDS: TOPIRAMATE 25 MG TAB PO SCH (21:03)
[2024-01-30] MEDS ORDERED: NA CHLORIDE 0.9% 1,000 ML ONE (21:07)
[2024-01-30] MEDS: NA CHLORIDE 0.9% 1,000 ML IV SCH (21:08)
[2024-01-31 05:12] LABS: Absolute Basophils 0.1 K/uL (0-0.5); Absolute Eosinophils 0.2 K/uL (0-0.5); Absolute Lymphocytes (CBC) 1.7 K/uL (0.7-4.9); Absolute Monocytes 0.8 K/uL (0.1-1.3); Absolute Neutrophil 4.4 K/uL (1.8-8.0); Basophils % 0.7 % (0-1.3); Eosinophils % 3.1 % (0-4.4); Hematocrit 37.8 % (36.0-45.0); Hemoglobin 12.6 g/dL (12.0-15.0); Lymphocytes % 24.1 % (15.3-44.8); MCH 28.8 pg (27.0-35.0); MCHC 33.3 g/dL (32.0-36.0); MCV 86.4 fL (80-100); MPV 8.8 fL (7.6-11.3); Monocytes % 10.8 % (3.3-12.3); Neutrophils % 61.3 % (41.7-73.7); Nucleated Red Blood Cells % 0.1 % (0-0); Platelets 163 thou/uL (152-406); RBC Red Blood Cell Count 4.37 M/uL (3.86-4.86); Red Cell Distribution Width 14.6 % (12.1-15.2)
[2024-01-31 05:24] LABS: Albumin 2.6 g/dL (3.4-5.0); Albumin/Globulin Ratio 0.7 (1.1-1.8); Anion Gap 7.8 mEq/L (5.0-15.0); Bilirubin Total 0.3 mg/dL (0.2-1.0); Globulin 3.7 g/dL (2.3-3.5); Potassium 3.8 mEq/L (3.5-5.1); Protein, Total 6.3 g/dL (6.4-8.2)
[2024-01-31] MEDS: PANTOPRAZOLE 40MG TABLET PO SCH (05:38)
[2024-01-31] MEDS ORDERED: NA CHLORIDE 0.9% 1,000 ML ONE (05:43)
[2024-01-31] MEDS ORDERED: CEFEPIME 2 GM VIAL ONE ×2 (07:35→17:22)
[2024-01-31] MEDS ORDERED: NA CHLORIDE 0.9% 100 ML ONE ×2 (07:35→17:22)
[2024-01-31] MEDS: NICOTINE 14 MG/PAT TD SCH (07:42)
[2024-01-31] MEDS: VANCOMYCIN 1.25 GM in NA CHLORIDE 0.9% 250 ML IVPB SCH (07:43)
[2024-01-31] MEDS ORDERED: VANCOMYCIN 1 GM in NA CHLORIDE 0.9% 250 ML IVPB SCH (09:00)
--- NOTE | 2024-01-31 09:39 | PREOPCON ---
Date of Consultation: 01/30/2024 Reason For Consultation: Right foot wound with cellulitis. History Of Present Illness: The patient is a 58-year-old female, who I follow in the Wound Healing C enter with a nonhealing wound on the right foot. The patient was doing well on her last visit. Graf estee, the last day or two, she noticed increased redness and swelling and some purulent discharge from the foot wound. Therefore, she came to the emergency room and was admitted with cellulitis. She is awake and alert. Denies any fever. No sore throat, runny nose, cough, headaches, or dizziness. No chest pain. Review of Systems: Otherwise unremarkable. Past Medical History: Significant for hypertension, chronic back pain, hyperlipidemia, right footdro p. Past Surgical History: Significant for pain pump, spinal implant stimulator, back surgery, left wris t surgery, clavicle surgery, and a pain pump placement. Allergies: INCLUDE LATEX AND IODINE. Social History: The patient does not smoke. Drinks alcohol. Family History: Significant for hypertension, diabetes, and hyperlipidemia. Physical Examination: Vital Signs: The patient's vital signs are stable; however, heart rate is low at 48. She is on beta blockers, which was held. Blood pressure systolic of 93 to 109, and she is afebrile. General: She is awake and alert. Head and Neck: No masses. Chest: Clear. Heart: S1, S2. Abdomen: Soft. Extremities: Slightly diminished dorsalis pedis and posterior tibial pulses. The redness on the ade t has gotten a little better since yesterday. There is minimal warmth. There is some edema present. There is a wound on the plantar aspect of the foot toward the lateral side, approximately 2 cm in d iameter with some purulent discharge, tender. Laboratory Data: White count was 12.5 on admission with a left shift, currently is 7.1. INR is 1.18 . Chemistry reviewed. Her LFTs are slightly elevated. AST and ALT 60 and 65. She had a foot x-ray , which shows soft tissue swelling, but no bone disease. Assessment: A 58-year-old female with infected wound of the right foot with cellulitis. Recommendations: Continue IV antibiotics as ordered, which is vancomycin, cefepime. Check cultures and adjust antibiotics accordingly. At this time, the Gram stain is showing 1+ gram-negative rods. We will adjust the antibiotics based on the culture reports. Take the patient to the OR for debridem ent of the infected wound. The patient understands risks, benefits, and alternatives, and agrees to procedure. CANDY/MODL Voice ID: [id number] Report ID: [id number]
[2024-01-31] MEDS ORDERED: LIDOCAINE 1% MPF 5 ML VIAL ONE (09:47)
[2024-01-31] MEDS ORDERED: propofoL 200 MG/20 ML VIAL IV ONE (09:47)
[2024-01-31] MEDS ORDERED: ONDANSETRON 4 MG/2 ML VIAL ONE (09:47)
[2024-01-31] MEDS ORDERED: MIDAZOLAM HCL 2 MG/2 ML INJ ONE (09:48)
[2024-01-31] MEDS ORDERED: GLYCOPYRROLATE 0.2 MG/ML SYR ONE (10:11)
[2024-01-31] MEDS: BUPIVACAINE 0.5% PF 10 ML VIAL ONE (10:21)
[2024-01-31] MEDS: COLLAGENASE 30 GM OINTMENT TOP ONE (10:24)
--- NOTE | 2024-01-31 10:35 | P.OP ---
Date of Service: 01/31/24 Preop diagnosis: Infected wound right foot with cellulitis Postop diagnosis: Same Procedure performed: Incision, drainage and debridement of infected right foot wound Surgeon: Hans Valenzuela MD Domestic Technician: None Estimated blood loss: Minimal Specimen: Pus and necrotic tissue Findings: As above Anesthesia: General Complications: None Drains: None Fluids and blood products: Nonapplicable Disposition: Recovery room Operative note: Patient brought to the OR and placed in supine position. General anesthesia began. Patient prepped and draped in usual sterile fashion. The purulence that was coming from the wound was cultured. Then sharp dissection was used around the edges of the wound unhealthy tissue was incised and drained. All necrotic tissue was debrided with sharp dissection and sent to pathology. Healthy tissue obtained. Wound irrigated and bleeding controlled cautery. Santyl dressing applied with wet-to-dry normal saline dressing. Patient awakened and taken to recovery room in good general condition. CC:
[2024-01-31] MEDS ORDERED: ENOXAPARIN 40 MG/0.4 ML SQ ONE (12:58)
[2024-01-31] MEDS: ENOXAPARIN 40 MG/0.4 ML SQ SCH (13:00)
--- NOTE | 2024-01-31 13:33 | P.PN ---
Date of Service: 01/31/24 Subjective Incision and drainage planned for today Calm and cooperative ROS 10 point ROS as noted above, otherwise negative Physical Exam General: Alert, In no apparent distress, Oriented x3 HEENT: Atraumatic, PERRLA, Mucous membr. moist/pink Neck: Supple, 2+ carotid pulse no bruit, No LAD Respiratory: Clear to auscultation bilaterally, Normal air movement Cardiovascular: Regular rate/rhythm, Normal S1 S2 Gastrointestinal: Normal bowel sounds, No tenderness Musculoskeletal: No tenderness Integumentary: Other (Wound to the plantar aspect of the right foot, erythema, swelling of the right foot) Neurological: Normal speech, Normal tone, Normal affect, Other (Right foot drop noted) Vitals Reviewed Assessment: Wound plantar aspect right foot, right lower extremity cellulitis Right foot drop Hypertension Chronic pain GERD Plan: Wound plantar aspect right foot, right lower extremity cellulitis Right foot drop General surgeryDr. Valenzuela consulted, follows her in wound healing, incision and drainage today White blood cell count 12.5, no other SIRS criteria at this time does not meet sepsis criteria Blood pressure soft in ED given 30 cc/kg IV fluid bolus, lactate less than 2. Blood pressure has responded to fluids Continue antibiotics vancomycin/cefepime Right foot drop from previous spinal injection Hypertension Hold oral antihypertensives as patient blood pressure is soft at this time Resume when blood pressure becomes more persistently elevated Takes amlodipine, metoprolol at home Chronic pain Has morphine pain pump in place Previously had spinal stimulator that has since been removed GERD Continue Carafate, Dexilant DVT PPX: Lovenox Code status: Full Discharge Plan: Home Plan to discharge in: 72 Hours
--- NOTE | 2024-01-31 17:08 | EKG ---
Test Date: 2024-01-30 Test Time: 13:05:19 Director Adult: BEATRIZ MEASUREMENT RESULTS: Intervals: Rate: 50 SC: 156 QRSD: 76 QT: 462 QTc: 421 [place]: P: 46 SC: 156 QRS: 60 T: 84 INTERPRETIVE STATEMENTS: Sinus bradycardia Otherwise normal ECG Compared to ECG 10/05/2022 16:47:29 Sinus rhythm no longer present Left ventricular hypertrophy no longer present Prolonged QT interval no longer present Electronically Signed On 01-31-24 17:03:39 SUPPORTIVE EMPLOYMENT CASE MANAGER by Sree Chen
[2024-01-31] MEDS ORDERED: GABAPENTIN 300 MG CAP ONE (17:22)
[2024-01-31] MEDS: ENSURE ENLIVE 237 ML CAN PO SCH (17:26)
[2024-01-31] MEDS: JUVEN PACKET PO SCH (21:00)
[2024-02-01] MEDS: HYDROCODONE/APAP 7.5/325 MG TAB PO PRN (00:18)
[2024-02-01 02:45] LABS: Absolute Basophils 0.1 K/uL (0-0.5); Absolute Eosinophils 0.3 K/uL (0-0.5); Absolute Lymphocytes (CBC) 1.5 K/uL (0.7-4.9); Absolute Monocytes 0.6 K/uL (0.1-1.3); Basophils % 0.9 % (0-1.3); Eosinophils % 3.4 % (0-4.4); Hematocrit 35.3 % (36.0-45.0); Hemoglobin 11.9 g/dL (12.0-15.0); Lymphocytes % 19.7 % (15.3-44.8); MCH 29.2 pg (27.0-35.0); MCHC 33.8 g/dL (32.0-36.0); MCV 86.3 fL (80-100); MPV 8.7 fL (7.6-11.3); Monocytes % 8.6 % (3.3-12.3); Neutrophils % 67.4 % (41.7-73.7); Platelets 203 thou/uL (152-406); RBC Red Blood Cell Count 4.09 M/uL (3.86-4.86); Red Cell Distribution Width 14.1 % (12.1-15.2)
[2024-02-01 02:54] LABS: Albumin 2.5 g/dL (3.4-5.0); Albumin/Globulin Ratio 0.7 (1.1-1.8); Bilirubin Total 0.2 mg/dL (0.2-1.0); Globulin 3.6 g/dL (2.3-3.5); Protein, Total 6.1 g/dL (6.4-8.2)
[2024-02-01] MEDS ORDERED: CEFEPIME 2 GM VIAL ONE ×2 (08:40→17:13)
[2024-02-01] MEDS ORDERED: GABAPENTIN 300 MG CAP ONE ×4 (08:40→20:52)
[2024-02-01] MEDS ORDERED: NA CHLORIDE 0.9% 100 ML ONE ×2 (08:41→17:13)
[2024-02-01] MEDS ORDERED: HYDROCODONE/APAP 7.5/325 MG TAB ONE (08:41)
[2024-02-01] MEDS: COLLAGENASE 30 GM OINTMENT TOP SCH (09:00)
--- NOTE | 2024-02-01 11:50 | PN ---
Date of Progress Note: 02/01/2024 Subjective: The patient is awake, alert. Denies any pain. No fever or chills. Her vital signs are stable. She is afebrile. Laboratory data shows her white count to be 7.4. There is no left shift. Her cultures however are growing gram-positive Staph coag positive and gram-negative rods, likely P roteus mirabilis, ESBL and meropenem is recommended for that. Examination of the wound reveals decre ase in the erythema, warmth, and edema. The wound itself has no purulent discharge. However, she do es have some dark tissue at the base of the wound. Assessment: Infected wound, cellulitis, right foot, with staph and Proteus infection. Recommendations: The patient will likely need meropenem, may need additional coverage for the staph coag positive. We will get ID to evaluate for that. In the meantime, based on the patient's clinica l condition, I would recommend at least 2 weeks of IV antibiotics for this patient. Dr. Gross and I discussed the case and he will get Infectious Disease involved as well as Social Work to evaluate wh ere we can provide the IV antibiotics the patient needs and wound care as ordered. CANDY/TANI Voice ID: [id number] Report ID: [id number]
[2024-02-01] MEDS: Mupirocin NASAL 2 APPL/1 GM TUBE NAS SCH (12:00)
--- NOTE | 2024-02-01 13:20 | P.PN ---
Date of Service: 02/01/24 Subjective Awake, NAD, calm No complaints this AM following cultures ROS 10 point ROS as noted above, otherwise negative Physical Exam General: AAO x3, NAD HEENT: Atraumatic, PERRLA, Mucous membr. moist/pink Neck: Supple, 2+ carotid pulse no bruit, No LAD Respiratory: Clear to auscultation bilaterally, Normal air movement Cardiovascular: RRR, Normal S1 S2 Gastrointestinal: Normal bowel sounds, No tenderness Musculoskeletal: No tenderness, Right foot dressing C/D/I Integumentary: Other (Wound to the plantar aspect of the right foot, erythema, swelling of the right foot) Neurological: Normal speech, Normal tone, Normal affect, Other (Right foot drop noted) Vitals Reviewed Assessment: Wound plantar aspect right foot, right lower extremity cellulitis Right foot drop Hypertension Chronic pain GERD Plan: Wound plantar aspect right foot, right lower extremity cellulitis Right foot drop General surgeryDr. Valenzuela consulted, follows her in wound healing, incision and drainage 3/5 Initial White blood cell count 12.5, no other SIRS criteria at this time does not meet sepsis criteria Blood pressure soft in ED given 30 cc/kg IV fluid bolus, lactate less than 2. Blood pressure has responded to fluids Continue antibiotics vancomycin/merrem-PICC Right foot drop from previous spinal injection Blood culture 3/4 wound culture ESBL, 3/5 Wound culture with staph-coagulase, gram positive and gram negative Hypertension continue to hold oral antihypertensives as patient blood pressure is soft at this time Resume when blood pressure becomes more persistently elevated Takes amlodipine, metoprolol at home Chronic pain Has morphine pain pump in place Previously had spinal stimulator that has since been removed GERD Continue Carafate, Dexilant DVT PPX: Lovenox Code status: Full Discharge Plan: Home
--- NOTE | 2024-02-01 16:22 | RAD REPORT ---
EXAM DESCRIPTION: RAD - Chest Single View - 02/01/2024 4:16 pm CLINICAL HISTORY: Device placement PICC line placement IMPRESSION: PICC line with its tip in the superior vena cava
[2024-02-01] MEDS ORDERED: ONDANSETRON 4 MG/2 ML VIAL ONE (17:44)
[2024-02-01] MEDS: ONDANSETRON 4 MG/2 ML VIAL IV PRN (17:45)
[2024-02-02] MEDS ORDERED: NA CHLORIDE 0.9% 100 ML ONE ×4 (01:43→16:50)
[2024-02-02] MEDS ORDERED: Meropenem 500 MG VIAL IV ONE (01:43)
[2024-02-02] MEDS: Meropenem 500 MG in NA CHLORIDE 0.9% 100 ML IV SCH (01:44)
[2024-02-02 05:08] LABS: Absolute Eosinophils 0.3 K/uL (0-0.5); Absolute Lymphocytes (CBC) 1.7 K/uL (0.7-4.9); Absolute Monocytes 0.7 K/uL (0.1-1.3); Absolute Neutrophil 4.4 K/uL (1.8-8.0); Basophils % 0.4 % (0-1.3); Eosinophils % 3.7 % (0-4.4); Hematocrit 36.4 % (36.0-45.0); Hemoglobin 12.3 g/dL (12.0-15.0); MCHC 33.8 g/dL (32.0-36.0); MCV 85.9 fL (80-100); MPV 7.9 fL (7.6-11.3); Monocytes % 10.3 % (3.3-12.3); Neutrophils % 61.6 % (41.7-73.7); Nucleated Red Blood Cells % 0.1 % (0-0); Platelets 233 thou/uL (152-406); RBC Red Blood Cell Count 4.24 M/uL (3.86-4.86); Red Cell Distribution Width 13.9 % (12.1-15.2)
[2024-02-02 05:37] LABS: Albumin 2.6 g/dL (3.4-5.0); Albumin/Globulin Ratio 0.7 (1.1-1.8); Bilirubin Total 0.4 mg/dL (0.2-1.0); Globulin 3.8 g/dL (2.3-3.5); Protein, Total 6.4 g/dL (6.4-8.2)
--- NOTE | 2024-02-02 07:14 | P.PN ---
Date of Service: 02/02/24 Subjective Pleasantly comfortable in bed AAO x3 no new complaints ROS 10 point ROS as noted above, otherwise negative Physical Exam General: AAO x3, NAD, calm HEENT: Atraumatic, PERRLA, Mucous membr. moist/pink Neck: Supple, 2+ carotid pulse no bruit, No LAD Respiratory: Symmetrical clear breath sounds, Normal air movement, on RA Cardiovascular: RRR, Normal S1 S2, no murmur noted Gastrointestinal: Normal bowel sounds, No tenderness Musculoskeletal: No tenderness, Right foot dressing C/D/I, 2+ peripheral pulses Integumentary: Other (Wound to the plantar aspect of the right foot, erythema, swelling of the right foot) Neurological: Normal speech, Normal tone, Normal affect, Other (Right foot drop noted) Vitals Reviewed Assessment: Wound plantar aspect right foot, right lower extremity cellulitis Right foot drop Hypertension Chronic pain GERD Plan: Wound plantar aspect right foot, right lower extremity cellulitis Right foot drop General surgeryDr. Valenzuela consulted, follows her in wound healing, incision and drainage 3/5 Initial White blood cell count 12.5, no other SIRS criteria at this time does not meet sepsis criteria Blood pressure soft in ED given 30 cc/kg IV fluid bolus, lactate less than 2. Blood pressure has responded to fluids Continue antibiotics vancomycin/merrem (end date 02/14)-PICC Right foot drop from previous spinal injection Blood culture 3/4 wound culture ESBL, 3/5 Wound culture ESBL Hypertension continue to hold oral antihypertensives as patient blood pressure is soft at this time Resume when blood pressure becomes more persistently elevated Takes amlodipine, metoprolol at home Chronic pain Has morphine pain pump in place Previously had spinal stimulator that has since been removed GERD Continue Carafate, Dexilant DVT PPX: Lovenox Code status: Full Discharge Plan: Home <Alie Chester - Last Filed: 02/02/24 14:03> Patient seen and examined plan of care discussed with Ms. Chester Infectious disease Dr. Atkins input appreciated. Dr. Atkins is consulted of osteomyelitis and feels the wound is deep to the tendon. Will obtain an MRI of the foot to rule out osteomyelitis. Dr. Atkins recommended LTAC for double antibiotic coverage and complex wound care including hyperbaric oxygen but patient declined LTAC and prefers to go home. Will wait for MRI of the foot result to determine duration of home IV antibiotics. Patient to discharged with IV vancomycin and Invanz. PICC line is in place. <masoud anthony - Last Filed: 02/02/24 15:25>
--- NOTE | 2024-02-02 08:24 | P.CNS ---
Date of Consult: 02/02/24 Reason for Consult: infected foot wound, cellulitis Chief Complaint: Right lower extremity wound, cellulitis History of Present Illness: Patient is a 58-year-old female with a medical history of hypertension, hyperlipidemia, chronic pain, right foot drop who presented to the ED with complaints of right foot wound infection. She underwent debridement on 01/[address] Valenzuela. Wound cultures resulting with 4+ coagulase positive staph and Proteus mirabilis ESBL. Infectious disease was consulted, Allergies Latex, Natural Rubber Allergy (Verified 09/01/23 14:01) Hives/Rash TOPICAL IODINE Allergy (Mild, Uncoded 09/01/23 14:01) Hives/Rash Home medications list reviewed: Yes Home Medications: Dexlansoprazole [Dexlansoprazole Dr] 60 mg PO DAILY 09/06/22 Sucralfate [Carafate*] 1 tab PO DAILY 09/06/22 Fluoxetine HCl [Prozac] 80 mg PO DAILY 09/16/22 Gabapentin 600 mg PO QID 10/06/22 Topiramate 50 mg PO BID 10/06/22 Amlodipine [Norvasc*] 10 mg PO DAILY #30 tab 10/12/22 Metoprolol Tartrate [Lopressor] 50 mg PO BID #60 tab 10/12/22 Lidocaine [Lidocaine Pain Relief] 1 patch TD DAILY PRN 01/30/24 Trazodone [Desyrel*] 50 mg PO DAILY 01/30/24 - Past Medical/Surgical History Diabetic: No -: htn -: chronic back pain -: anxiety -: hyperlipidemia -: degenerative disc disease -: ADD/ADHD -: chronic back pain -: Right foot drop -: Pain pump -: spinal implant stimulator-removed -: back surgery (herniated disc) -: left wrist -: Clavicle sx 10/16 -: Pain pumpmorphine -: left shoulder surgery Psychosocial/ Personal History: Patient is . Lives at home with her - Family History Mother Medical History: Hypertension, Diabetes Notes: hyperlipidemia - Social History Smoking Status: Current every day smoker Alcohol use: Yes CD- Drugs: No Caffeine use: Yes Place of Residence: Home Physical Examination Temp Pulse Resp BP Pulse Ox 97.2 F 50 20 95/61 98 02/02/24 04:00 02/02/24 04:00 02/02/24 00:00 02/02/24 04:00 02/02/24 04:00 General: Alert, In no apparent distress, Oriented x3 HEENT: Atraumatic, Normocephalic Respiratory: Clear to auscultation bilaterally, Normal air movement Cardiovascular: No edema, Regular rate/rhythm Gastrointestinal: Normal bowel sounds, Soft and benign Laboratory data -Reviewed Microbiology data -Reviewed Imagings Data: -Reviewed Conclusions/Impression: Problem list Infected right foot wound Right foot cellulitis Hypertension chronic pain right foot drop GERD Infected right foot wound with cellulitis -S/p Incision, drainage and debridement of infected right foot wound on 01/[address] Valenzuela -Wound culture 01/30: 4+ coagulase positive staph and Proteus mirabilis ESBL -Currently on meropenem (02/01-) and vancomycin (01/30-) Leukocytosis resolved Afebrile Recommendations -Infected wound of right foot: Continue antibiotic therapy for a total of 14 days (01/31-02/14). Wound culture growing coagulase positive staph and Proteus ESBL. Recommend continuing with meropenem and vancomycin IV. Follow-up with final culture results to ensure targeted antibiotic therapy. - PICC line in place -Continue wound care per Dr. Valenzuela -Monitor CBC, BMP and Vanco trough while on IV antibiotics -Continue supportive care Case discussed with Nora Ceron
[2024-02-02] MEDS ORDERED: Meropenem 500 MG in NA CHLORIDE 0.9% 100 ML IV SCH (09:00)
[2024-02-02] MEDS ORDERED: MUPIROCIN 2% OINT 22GM TUBE TOP ONE (09:19)
[2024-02-02] MEDS ORDERED: GABAPENTIN 300 MG CAP ONE ×4 (09:19→20:07)
[2024-02-02] MEDS ORDERED: Meropenem 1000 MG/VIAL IV ONE ×2 (09:21→16:50)
[2024-02-02] MEDS: Meropenem 1,000 MG in NA CHLORIDE 0.9% 100 ML IV SCH (09:38)
--- NOTE | 2024-02-02 10:03 | PN ---
Date of Progress Note: 02/02/2024 Subjective: The patient is awake, alert. No complaint. Vitals stable, afebrile. The OR cultures a re also growing out Proteus mirabilis, ESBL, and the Gram stain shows gram-positive cocci in clusters as well as pairs and chains. Sensitivity reviewed. White count is normal. Dressing is clean, dry, and intact. There is no redness, edema, or warmth noted. Assessment: Status post debridement of infected right foot wound with cellulitis. Recommendation: PICC line is in. Continue IV antibiotics as ordered. Await recommendations by Infe ctious Disease. Social service has been consulted for disposition appropriately for treatment with I V antibiotics based on ID recommendations. Wound Care as ordered. The patient can follow up [facility] upon discharge. /MODL Voice ID: [id number] Report ID: [id number]
[2024-02-02] MEDS: VANCOMYCIN 1.5 GM in NA CHLORIDE 0.9% 500 ML IVPB SCH (16:32)
--- NOTE | 2024-02-02 18:42 | RAD REPORT ---
EXAM DESCRIPTION: US - Lower Extremity Arterial Bilat - 02/02/2024 4:39 pm CLINICAL HISTORY: Chronic non-healing wound COMPARISON: No comparisons TECHNIQUE: Bilateral lower extremity arterial Doppler examination was performed with alysia davalos FINDINGS: Triphasic waveforms are seen along the bilateral common femoral through mid superficial femoral arter ies and the right popliteal artery. Biphasic waveforms seen along the left popliteal through dorsalis pedis arteries. Monophasic waveforms are seen along the right dorsalis pedis and posterior tibial ar teries. IMPRESSION: [id number] peripheral vascular disease, worse on the right.
[2024-02-03] MEDS ORDERED: NA CHLORIDE 0.9% 100 ML ONE (00:43)
[2024-02-03] MEDS ORDERED: Meropenem 1000 MG/VIAL IV ONE ×2 (00:43→08:38)
[2024-02-03] MEDS ORDERED: HYDROCODONE/APAP 7.5/325 MG TAB ONE ×2 (04:08→19:22)
[2024-02-03 05:21] LABS: Absolute Eosinophils 0.3 K/uL (0-0.5); Absolute Monocytes 0.8 K/uL (0.1-1.3); Absolute Neutrophil 4.1 K/uL (1.8-8.0); Basophils % 0.7 % (0-1.3); Eosinophils % 4.2 % (0-4.4); Hematocrit 35.3 % (36.0-45.0); Hemoglobin 11.9 g/dL (12.0-15.0); Lymphocytes % 28.1 % (15.3-44.8); MCH 29.2 pg (27.0-35.0); MCHC 33.7 g/dL (32.0-36.0); MCV 86.5 fL (80-100); MPV 8.2 fL (7.6-11.3); Monocytes % 10.7 % (3.3-12.3); Neutrophils % 56.3 % (41.7-73.7); Platelets 213 thou/uL (152-406); RBC Red Blood Cell Count 4.08 M/uL (3.86-4.86); Red Cell Distribution Width 14.4 % (12.1-15.2)
[2024-02-03 05:44] LABS: Albumin 2.5 g/dL (3.4-5.0); Albumin/Globulin Ratio 0.7 (1.1-1.8); Bilirubin Total 0.3 mg/dL (0.2-1.0); Globulin 3.6 g/dL (2.3-3.5); Protein, Total 6.1 g/dL (6.4-8.2)
[2024-02-03] MEDS ORDERED: PANTOPRAZOLE 40MG TABLET PO ONE (06:04)
--- NOTE | 2024-02-03 08:26 | P.PN ---
Date of Service: 02/03/24 Chief Complaint: Right lower extremity wound, cellulitis Subjective: In no apparent distress. No acute events overnight. Denies any new or worsening complaints. Physical Examination Temp Pulse Resp BP Pulse Ox 96.9 F 52 14 113/68 91 02/03/24 04:00 02/03/24 04:00 02/03/24 05:08 02/03/24 04:00 02/03/24 05:08 General: Alert, In no apparent distress, Oriented x3 HEENT: Atraumatic, Normocephalic Respiratory: Clear to auscultation bilaterally, Normal air movement Cardiovascular: Bradycardia. Right foot edema. Gastrointestinal: Normal bowel sounds, Soft and benign Skin: Right foot wound dressing clean dry and intact Laboratory data -Reviewed Microbiology data -Reviewed Imagings Data: -Reviewed Medication List: Reviewed Assessment and Plan Problem list Infected right foot wound Right foot cellulitis Hypertension chronic pain right foot drop GERD Infected right foot wound with cellulitis -S/p Incision, drainage and debridement of infected right foot wound on 01/[address] Valenzuela -Wound culture 01/30: methicillin resistant Staphylococcus aureus (MRSA) and Proteus mirabilis ESBL -Currently on meropenem (02/01-) and vancomycin (01/30-) Leukocytosis resolved Afebrile Recommendations -Infected wound of right foot: Continue antibiotic therapy for a total of 14 days (01/31-02/14). - Wound culture growing MRSA and Proteus ESBL. Recommend continuing with meropenem and vancomycin IV. - PICC line in place - MRSA: continue bactroban nasal ointment BID x 5 days -Continue wound care per Dr. Valenzuela -Monitor CBC, BMP and Vanco trough while on IV antibiotics -Continue supportive care Case discussed with Nora Ceron
[2024-02-03] MEDS ORDERED: GABAPENTIN 300 MG CAP ONE ×4 (08:38→20:28)
[2024-02-03] MEDS: NA CHLORIDE 0.9% 100 ML ONE (08:41)
[2024-02-03] MEDS: ERTAPENEM SODIUM 1 GM VIAL IVPB ONE (16:00)
[2024-02-03 16:06] VITALS: BMI 24.6
--- NOTE | 2024-02-03 16:33 | P.PN ---
Date of Service: 02/03/24 Subjective Sleeping in bed but easily aroused. no complaints She has agreed to LTAC ROS 10 point ROS as noted above, otherwise negative Physical Exam General: Alert and oriented x3, NAD, calm and cooperative HEENT: Atraumatic, PERRLA, Mucous membr. moist/pink Neck: Supple, 2+ carotid pulse no bruit Respiratory: Bilaterally clear breath sounds, symmetrical chest wall movement, normal air movement, on RA Cardiovascular: Regular rate and rhythm, S1 S2 present, no murmur noted Gastrointestinal: Normoactive bowel sounds, ND/NT, soft benign on palpation Musculoskeletal: No tenderness, Right foot dressing C/D/I, 2+ peripheral pulses Integumentary: Other (Wound to the plantar aspect of the right foot, erythema, swelling of the right foot) Neurological: Normal speech, Normal tone, Normal affect, Other (Right foot drop noted) Vitals Reviewed Assessment: Wound plantar aspect right foot, right lower extremity cellulitis Right foot drop Hypertension Chronic pain GERD Plan: Wound plantar aspect right foot, right lower extremity cellulitis Right foot drop General surgeryDr. Valenzuela consulted, follows her in wound healing, incision and drainage 3/5 Initial White blood cell count 12.5, no other SIRS criteria at this time does not meet sepsis criteria Blood pressure soft in ED given 30 cc/kg IV fluid bolus, lactate less than 2. Blood pressure has responded to fluids Continue antibiotics vancomycin/merrem (end date 02/14)-PICC At discharge: vanc and Invanz for a total of 6 weeks Right foot drop from previous spinal injection Blood culture 3/4 wound culture ESBL, 3/5 Wound culture ESBL and MRSA bactroban nasal ointment BID x 5days Hypertension continue to hold oral antihypertensives as patient blood pressure is soft at this time Resume when blood pressure becomes more persistently elevated Takes amlodipine, metoprolol at home Chronic pain Has morphine pain pump in place Previously had spinal stimulator that has since been removed GERD Continue Carafate, Dexilant DVT PPX: Lovenox Code status: Full Discharge Plan: Home
[2024-02-04 07:00] LABS: Absolute Basophils 0.1 K/uL (0-0.5); Absolute Eosinophils 0.3 K/uL (0-0.5); Absolute Lymphocytes (CBC) 1.8 K/uL (0.7-4.9); Absolute Monocytes 0.9 K/uL (0.1-1.3); Basophils % 0.5 % (0-1.3); Eosinophils % 2.9 % (0-4.4); Hematocrit 36.7 % (36.0-45.0); Hemoglobin 12.2 g/dL (12.0-15.0); Lymphocytes % 17.9 % (15.3-44.8); MCH 29.1 pg (27.0-35.0); MCHC 33.4 g/dL (32.0-36.0); MCV 87.2 fL (80-100); MPV 8.2 fL (7.6-11.3); Monocytes % 9.2 % (3.3-12.3); Neutrophils % 69.5 % (41.7-73.7); Platelets 221 thou/uL (152-406); RBC Red Blood Cell Count 4.21 M/uL (3.86-4.86); Red Cell Distribution Width 13.9 % (12.1-15.2)
--- NOTE | 2024-02-04 07:07 | P.PN ---
Date of Service: 02/04/24 Subjective Awake and no new complaints tolerating IV abx well Afebrile, hemodynamically stable ROS 10 point ROS as noted above, otherwise negative Physical Exam General: AAO x3, No acute distress, calm and cooperative HEENT: Atraumatic, PERRLA, Mucous membr. moist/pink Neck: Supple, 2+ carotid pulse no bruit Respiratory: Bilaterally clear breath sounds, symmetrical chest wall movement, normal air movement, on RA Cardiovascular: RRR, S1 S2 present, no murmur noted Gastrointestinal: Normoactive bowel sounds, ND/NT, soft benign on palpation Musculoskeletal: No tenderness, Right foot dressing C/D/I, 2+ peripheral pulses, 1+ RLE pulse Integumentary: Other (Wound to the plantar aspect of the right foot, erythema, swelling of the right foot) Neurological: Normal speech, Normal tone, Normal affect, Other (Right foot drop noted) Vitals Reviewed Assessment: Wound plantar aspect right foot, right lower extremity cellulitis Right foot drop Hypertension Chronic pain GERD Plan: Wound plantar aspect right foot, right lower extremity cellulitis Right foot drop General surgeryDr. Valenzuela consulted, follows her in wound healing, incision and drainage 3/5 Initial White blood cell count 12.5, no other SIRS criteria at this time does not meet sepsis criteria Blood pressure soft in ED given 30 cc/kg IV fluid bolus, lactate less than 2. Blood pressure has responded to fluids Continue antibiotics vancomycin/merrem (end date 02/14)-PICC At discharge: vanc and Invanz for a total of 6 weeks Right foot drop from previous spinal injection Blood culture 3/4 wound culture ESBL, 3/5 Wound culture ESBL and MRSA- no anerobe growth bactroban nasal ointment BID x 5days Hypertension continue to hold oral antihypertensives as patient blood pressure is soft at this time Resume when blood pressure becomes more persistently elevated Takes amlodipine, metoprolol at home Chronic pain Has morphine pain pump in place Previously had spinal stimulator that has since been removed GERD Continue Carafate, Dexilant DVT PPX: Lovenox Code status: Full Discharge Plan: [facility], [facility]
[2024-02-04 07:10] LABS: Albumin 2.8 g/dL (3.4-5.0); Albumin/Globulin Ratio 0.7 (1.1-1.8); Anion Gap 7.9 mEq/L (5.0-15.0); Bilirubin Total 0.3 mg/dL (0.2-1.0); Globulin 3.9 g/dL (2.3-3.5); Potassium 3.9 mEq/L (3.5-5.1); Protein, Total 6.7 g/dL (6.4-8.2)
[2024-02-04] MEDS: Meropenem 1,000 MG in NA CHLORIDE 0.9% 100 ML IV SCH (10:35)
--- NOTE | 2024-02-05 07:37 | P.PN ---
Date of Service: 02/05/24 Subjective Feeling well, denies cough, fever, abdominal pain, and nausea Awaiting placement to [facility] ROS 10 point ROS as noted above, otherwise negative Physical Exam General: Alert and oriented x3, NAD, calm and cooperative HEENT: Atraumatic, PERRLA, Mucous membr. moist/pink Neck: Supple, 2+ carotid pulse no bruit Respiratory: Bilaterally clear breath sounds, symmetrical chest wall movement, on RA Cardiovascular: RRR, normal S1 S2, no murmur noted Gastrointestinal: positive bowel sounds, ND/NT, soft and benign on palpation Musculoskeletal: No tenderness, Right foot dressing C/D/I, 2+ peripheral pulses, 1+ RLE pulse Integumentary: Other (Wound to the plantar aspect of the right foot, erythema, swelling of the right foot) Neurological: Normal speech, Normal tone, Normal affect, Other (Right foot drop noted) Vitals Reviewed Assessment: Wound plantar aspect right foot, right lower extremity cellulitis Right foot drop Hypertension Chronic pain GERD Plan: Wound plantar aspect right foot, right lower extremity cellulitis Right foot drop General surgeryDr. Valenzuela consulted, follows her in wound healing, incision and drainage 3/5 Initial White blood cell count 12.5, no other SIRS criteria at this time does not meet sepsis criteria Blood pressure soft in ED given 30 cc/kg IV fluid bolus, lactate less than 2. Blood pressure has responded to fluids Continue antibiotics vancomycin/merrem (end date 02/14)-PICC At discharge: vanc and Invanz for a total of 6 weeks Right foot drop from previous spinal injection Blood culture 3/4 wound culture ESBL, 3/5 Wound culture ESBL and MRSA- no anerobe growth bactroban nasal ointment BID x 5days Hypertension BP is stable- no need for antihypertensives at this time continue to hold home antihypertensives as patient's blood pressure is soft at this time Resume when blood pressure becomes more persistently elevated Takes amlodipine, metoprolol at home Chronic pain Has morphine pain pump in place Previously had spinal stimulator that has since been removed GERD Continue Carafate, Dexilant DVT PPX: Lovenox Code status: Full Discharge Plan: [facility], [facility]
[2024-02-06 04:54] LABS: Albumin 2.6 g/dL (3.4-5.0); Phosphorus 3.2 mg/dL (2.5-4.9)
--- NOTE | 2024-02-06 09:07 | P.PN ---
Date of Service: 02/06/24 Chief Complaint: Right lower extremity wound, cellulitis Subjective: In no apparent distress. No acute events overnight. Denies any new or worsening complaints at this time. Continue current plan of care. Physical Examination Temp Pulse Resp BP Pulse Ox 98.7 F 63 16 115/63 97 02/06/24 08:00 02/06/24 08:00 02/06/24 08:00 02/06/24 08:00 02/06/24 08:00 General: Alert, In no apparent distress, Oriented x3 HEENT: Atraumatic, Normocephalic Respiratory: Clear to auscultation bilaterally, Normal air movement Cardiovascular: Bradycardia. Right foot edema. Gastrointestinal: Normal bowel sounds, Soft and benign Skin: Right foot wound dressing clean dry and intact Laboratory data -Reviewed Microbiology data -Reviewed Imagings Data: -Reviewed Medication List: Reviewed Assessment and Plan Problem list Infected right foot wound Right foot cellulitis Hypertension chronic pain right foot drop GERD Infected right foot wound with cellulitis -S/p Incision, drainage and debridement of infected right foot wound on 01/[address] Valenzuela -Wound culture 01/30: methicillin resistant Staphylococcus aureus (MRSA) and Proteus mirabilis ESBL -Currently on meropenem (02/01-) and vancomycin (01/30-) Leukocytosis resolved Afebrile Recommendations - Infected wound of right foot: Continue antibiotic therapy for a total of 14 days (01/31-02/14). - Wound culture growing MRSA and Proteus ESBL. Recommend continuing with Meropenem/Ertapenem and Vancomycin IV. - PICC line in place - Continue wound care per Dr. Valenzuela - Monitor CBC, BMP and Vanco trough while on IV antibiotics - MRSA: Completed 5 days bactroban nasal ointment - Continue supportive care Case discussed with Nora Ceron
--- NOTE | 2024-02-06 09:10 | P.PN ---
Date of Service: 02/06/24 Subjective awake and smiling, feeling well with no new complaints. Awaiting placement to [facility] ROS 10 point ROS as noted above, otherwise negative Physical Exam General: AAOx3, no acute distress, calm and cooperative HEENT: Atraumatic, PERRLA, Mucous membr. moist/pink Neck: Supple, 2+ carotid pulse no bruit Respiratory: Bilaterally clear breath sounds, symmetrical chest wall movement, on RA Cardiovascular: Regular rate and rhythm, S1 S2, no murmur noted Gastrointestinal: positive bowel sounds, ND/NT, soft and benign on palpation Musculoskeletal: No tenderness, Right foot dressing C/D/I, 2+ peripheral pulses, 1+ RLE pulse Integumentary: Other (Wound to the plantar aspect of the right foot, erythema, swelling of the right foot) Neurological: Normal speech, Normal tone, Normal affect, Other (Right foot drop noted) Vitals Reviewed Assessment: Wound plantar aspect right foot, right lower extremity cellulitis Right foot drop Hypertension Chronic pain GERD Plan: Wound plantar aspect right foot, right lower extremity cellulitis Right foot drop General surgeryDr. Valenzuela consulted, follows her in wound healing, incision and drainage 3/5 Initial White blood cell count 12.5, no other SIRS criteria at this time does not meet sepsis criteria Blood pressure soft in ED given 30 cc/kg IV fluid bolus, lactate less than 2. Blood pressure has responded to fluids Continue antibiotics vancomycin/merrem (end date 02/14)-PICC At discharge: vanc and Invanz for a total of 6 weeks Right foot drop from previous spinal injection Blood culture NGTD- completed / wound culture ESBL, / Wound culture ESBL and MRSA- no anerobe growth bactroban nasal ointment BID x 5days PT active Hypertension BP is stable- continues no need antihypertensives continue to hold home antihypertensives as patient's blood pressure is soft at this time Resume when blood pressure becomes more persistently elevated Takes amlodipine, metoprolol at home Chronic pain Has morphine pain pump in place Previously had spinal stimulator that has since been removed GERD Continue Carafate, Dexilant DVT PPX: Lovenox Code status: Full Discharge Plan: [facility], [facility]
[2024-02-06] MEDS ORDERED: VANCOMYCIN 1.5 GM in NA CHLORIDE 0.9% 500 ML IVPB SCH (20:00)
[2024-02-07 05:35] LABS: Albumin 2.6 g/dL (3.4-5.0); Anion Gap 7.9 mEq/L (5.0-15.0); Potassium 3.9 mEq/L (3.5-5.1)
--- NOTE | 2024-02-07 08:46 | P.PN ---
Date of Service: 02/07/24 Chief Complaint: Right lower extremity wound, cellulitis Subjective: No acute events overnight. In no apparent distress. + erythema and mild itching abdominal wall, relieved by topical antifungal/moisturizing cream. Physical Examination Temp Pulse Resp BP Pulse Ox 97.0 F 60 16 98/60 96 02/07/24 04:00 02/07/24 04:00 02/07/24 06:10 02/07/24 04:00 02/07/24 06:10 General: Alert, In no apparent distress, Oriented x3 HEENT: Atraumatic, Normocephalic Respiratory: Clear to auscultation bilaterally, Normal air movement Cardiovascular: Bradycardia. Right foot edema. Gastrointestinal: Normal bowel sounds, Soft and benign Skin: Right foot wound dressing clean dry and intact. Erythema abdominal wall. Laboratory data -Reviewed Microbiology data -Reviewed Imagings Data: -Reviewed Medication List: Reviewed Assessment and Plan Problem list Infected right foot wound Right foot cellulitis Hypertension chronic pain right foot drop GERD Infected right foot wound with cellulitis -S/p Incision, drainage and debridement of infected right foot wound on 01/[address] Valenzuela -Wound culture 01/30: methicillin resistant Staphylococcus aureus (MRSA) and Proteus mirabilis ESBL -Currently on meropenem (02/01-) and vancomycin (01/30-) Leukocytosis resolved Afebrile Recommendations - Infected wound of right foot: Continue antibiotic therapy for a total of 14 days (01/31-02/14). - Wound culture growing MRSA and Proteus ESBL. Recommend continuing with Meropenem/Ertapenem and Vancomycin IV. - PICC line in place - Continue wound care per Dr. Valenzuela - Monitor CBC, BMP and Vanco trough while on IV antibiotics - MRSA: Completed 5 days bactroban nasal ointment Current plan to complete 2 weeks of IV antibiotic therapy. Patient to follow up with Dr. Valenzuela as outpatient for wound care. Case discussed with Nora Ceron
[2024-02-07] MEDS: DIPHENHYDRAMINE 25 MG TAB/CAP PO PRN (11:41)
--- NOTE | 2024-02-07 12:05 | P.PN ---
Date of Service: 02/07/24 Subjective Does C/O rash to abdomen she reports started a last awake and smiling, feeling well with no new complaints. Awaiting placement to [facility] 10 point ROS as noted above, otherwise negative Physical Exam General: AAOx3, no acute distress, calm and cooperative HEENT: Atraumatic, PERRLA, Mucous membr. moist/pink Neck: Supple, 2+ carotid pulse no bruit Respiratory: Bilaterally clear breath sounds, symmetrical chest wall movement, on RA Cardiovascular: Regular rate and rhythm, S1 S2, no murmur noted Gastrointestinal: positive bowel sounds, ND/NT, soft and benign on palpation Musculoskeletal: No tenderness, Right foot dressing C/D/I, 2+ peripheral pulses, 1+ RLE pulse Integumentary: Other (Wound to the plantar aspect of the right foot, erythema, swelling of the right foot), maculopapular pruritic rash to abdomen Neurological: Normal speech, Normal tone, Normal affect, Other (Right foot drop noted) Vitals Reviewed Assessment: Wound plantar aspect right foot, right lower extremity cellulitis Right foot drop Hypertension Chronic pain GERD Plan: Wound plantar aspect right foot, right lower extremity cellulitis Right foot drop General surgeryDrRigoberto Valenzuela consulted, follows her in wound healing, incision and drainage 01/30 Continue antibiotics vancomycin/merrem (end date 02/14)-PICC Antibiotics per infectious disease-concern for deep wound with exposed tendon may require prolonged IV antibiotic therapy Right foot drop from previous spinal injection Blood culture NGTD- completed 01/29 wound culture ESBL, / Wound culture ESBL and MRSA- no anerobe growth bactroban nasal ointment BID x 5days completed Working with PT Cannot obtain MRI to rule out osteomyelitis given chronic pain/pain pump in place Hypertension BP is stable- continues no need antihypertensives continue to hold home antihypertensives as patient's blood pressure is soft at this time Resume when blood pressure becomes more persistently elevated Takes amlodipine, metoprolol at home Chronic pain Has morphine pain pump in place Previously had spinal stimulator that has since been removed GERD Continue Carafate, Dexilant DVT PPX: Lovenox Code status: Full Discharge Plan: LTAC, [facility]
[2024-02-07] MEDS ORDERED: VANCOMYCIN 1.5 GM in NA CHLORIDE 0.9% 500 ML IVPB SCH (14:00)
[2024-02-07] MEDS: VANCOMYCIN 1.5 GM in NA CHLORIDE 0.9% 500 ML IVPB SCH (15:01)
[2024-02-07 15:53] LABS: Absolute Eosinophils 0.4 K/uL (0-0.5); Absolute Lymphocytes (CBC) 1.8 K/uL (0.7-4.9); Absolute Monocytes 0.7 K/uL (0.1-1.3); Absolute Neutrophil 4.9 K/uL (1.8-8.0); Basophils % 0.5 % (0-1.3); Eosinophils % 4.9 % (0-4.4); Hematocrit 34.1 % (36.0-45.0); Hemoglobin 11.4 g/dL (12.0-15.0); Lymphocytes % 22.7 % (15.3-44.8); MCH 29.1 pg (27.0-35.0); MCHC 33.5 g/dL (32.0-36.0); MCV 86.7 fL (80-100); MPV 8.3 fL (7.6-11.3); Monocytes % 8.6 % (3.3-12.3); Neutrophils % 63.3 % (41.7-73.7); Platelets 205 thou/uL (152-406); RBC Red Blood Cell Count 3.94 M/uL (3.86-4.86)
--- NOTE | 2024-02-08 08:49 | P.PN ---
Date of Service: 02/08/24 Chief Complaint: Right lower extremity wound, cellulitis Subjective: In no apparent distress. No acute events overnight. Denies any new or worsening complaints at this time. Physical Examination Temp Pulse Resp BP Pulse Ox 98.5 F 65 16 139/66 95 02/08/24 04:00 02/08/24 04:00 02/08/24 04:00 02/08/24 04:00 02/08/24 04:00 General: Alert, In no apparent distress, Oriented x3 HEENT: Atraumatic, Normocephalic Respiratory: Clear to auscultation bilaterally, Normal air movement. On room air. Cardiovascular: regular rate/rhythm. Right foot edema. Gastrointestinal: Normal bowel sounds, Soft and benign Skin: Right foot wound dressing clean dry and intact. Erythema anterior abdom inal wall. Laboratory data -Reviewed Microbiology data -Reviewed Imagings Data: -Reviewed Medication List: Reviewed Assessment and Plan Problem list Infected right foot wound Right foot cellulitis Hypertension chronic pain right foot drop GERD Infected right foot wound with cellulitis -S/p Incision, drainage and debridement of infected right foot wound on 01/[address] Valenzuela, recommended 2 weeks antibiotic therapy. - XR right foot 01/29: "Soft tissue swelling as above, without acute osseus abnormality. If there is persistent concern for ongoing osteomyelitis, MRI would provide improved evaluation." - MRI unable to obtain due to pain pump -Wound culture 01/30: methicillin resistant Staphylococcus aureus (MRSA) and Proteus mirabilis ESBL - Currently on meropenem (02/01-) and vancomycin (01/30-) Leukocytosis resolved Afebrile Erythema and itching of anterior abdominal wall since 02/01. Tolerable. Eosinophils slightly elevated. Continue to monitor for worsening symptoms Recommendations - Infected wound of right foot: Continue antibiotic therapy for a total of 14 days (01/31-02/14). - Wound culture growing MRSA and Proteus ESBL. Recommend continuing with Meropenem/Ertapenem and Vancomycin IV. PICC line in place. - Continue wound care per Dr. Valenzuela - Monitor CBC, BMP and Vanco trough while on IV antibiotics - MRSA: Completed 5 days bactroban nasal ointment Current plan to complete 2 weeks of IV antibiotic therapy. Patient to follow up with Dr. Valenzuela as outpatient for wound care, if suspected osteomyelitis antibiotic duration to be extended to a total of 6 weeks. Case discussed with Nora Ceron
--- NOTE | 2024-02-08 11:30 | P.PN ---
Date of Service: 02/08/24 Subjective No new complaints Working on disposition planning ROS 10 point ROS as noted above, otherwise negative Physical Exam General: AAOx3, no acute distress, calm and cooperative HEENT: Atraumatic, PERRLA, Mucous membr. moist/pink Neck: Supple, 2+ carotid pulse no bruit Respiratory: Bilaterally clear breath sounds, symmetrical chest wall movement, on RA Cardiovascular: Regular rate and rhythm, S1 S2, no murmur noted Gastrointestinal: positive bowel sounds, ND/NT, soft and benign on palpation Musculoskeletal: No tenderness, Right foot dressing C/D/I, 2+ peripheral pulses, 1+ RLE pulse Integumentary: Other (Wound to the plantar aspect of the right foot, erythema, swelling of the right foot), maculopapular pruritic rash to abdomen Neurological: Normal speech, Normal tone, Normal affect, Other (Right foot drop noted) Vitals Reviewed Assessment: Wound plantar aspect right foot, right lower extremity cellulitis Right foot drop Hypertension Chronic pain GERD Plan: Wound plantar aspect right foot, right lower extremity cellulitis Right foot drop General surgeryDr. Valenzuela consulted, follows her in wound healing, incision and drainage 3/5 Continue antibiotics vancomycin/merrem (end date 02/14)-PICC Antibiotics per infectious disease-concern for deep wound with exposed tendon may require prolonged IV antibiotic therapy Right foot drop from previous spinal injection Blood culture NGTD- completed / wound culture ESBL, 3/ Wound culture ESBL and MRSA- no anerobe growth bactroban nasal ointment BID x 5days completed Working with PT Cannot obtain MRI to rule out osteomyelitis given chronic pain/pain pump in place Hypertension BP is stable- continues no need antihypertensives continue to hold home antihypertensives as patient's blood pressure is soft at this time Resume when blood pressure becomes more persistently elevated Takes amlodipine, metoprolol at home Chronic pain Has morphine pain pump in place Previously had spinal stimulator that has since been removed GERD Continue Carafate, Dexilant DVT PPX: Lovenox Code status: Full Discharge Plan: Hair [facility]ER[facility]AN
--- NOTE | 2024-02-09 08:44 | P.PN ---
Date of Service: 02/09/24 Chief Complaint: Right lower extremity wound, cellulitis Subjective: No acute events overnight. In no apparent distress. No new or worsening complaints at this itme. LTAC appeal denied. Pending home health placement. Physical Examination Temp Pulse Resp BP Pulse Ox 98.8 F 61 16 135/60 94 02/09/24 04:00 02/09/24 04:00 02/09/24 04:00 02/09/24 04:00 02/09/24 04:00 General: Alert, In no apparent distress, Oriented x3 HEENT: Atraumatic, Normocephalic. moist oral mucosa. Respiratory: Clear to auscultation bilaterally. Normal air movement. On room air . Cardiovascular: regular rate/rhythm. no edema. Gastrointestinal: Normal bowel sounds, Soft and benign. non-tender. Skin: Right foot wound dressing clean dry and intact. Erythema anterior abdominal wall. Laboratory data -Reviewed Microbiology data -Reviewed Imagings Data: -Reviewed Medication List: Reviewed Assessment and Plan Problem list Infected right foot wound Right foot cellulitis Hypertension chronic pain right foot drop GERD Infected right foot wound with cellulitis -S/p Incision, drainage and debridement of infected right foot wound on 01/[address] Valenzuela, recommended 2 weeks antibiotic therapy. - XR right foot 01/29: "Soft tissue swelling as above, without acute osseus abnormality. If there is persistent concern for ongoing osteomyelitis, MRI would provide improved evaluation." - MRI unable to obtain due to pain pump -Wound culture 01/30: methicillin resistant Staphylococcus aureus (MRSA) and Proteus mirabilis ESBL - Currently on meropenem (02/01-) and vancomycin (01/30-) Leukocytosis resolved Afebrile - MRSA: Completed 5 days bactroban nasal ointment Erythema and itching of anterior abdominal wall since 02/01. Tolerable. Eosinophils slightly elevated. Continue to monitor for worsening symptoms Recommendations - Infected wound of right foot: Continue Meropenem and Vancomycin IV for at least 14 days (01/31-02/14). - Wound care per Dr. Valenzuela - Current plan to complete 2 weeks of IV antibiotic therapy. Patient to follow up with Dr. Valenzuela as outpatient for wound care. If suspected osteomyelitis antibiotic duration to be extended to a total of 6 weeks. - Monitor CBC, BMP and Vanco trough while on IV antibiotics Pending LTAC appeal vs Home Health. CM/SS following. Case discussed with Nora Ceron
[2024-02-09] MEDS: POLYETHYL GLY 3350 17 GM/DOSE PO ONE (10:42)
--- NOTE | 2024-02-09 14:45 | P.PN ---
Date of Service: 02/09/24 Subjective No new complaints Denied for LTAC Arranging outpatient antibiotics ROS 10 point ROS as noted above, otherwise negative Physical Exam General: AAOx3, no acute distress, calm and cooperative HEENT: Atraumatic, PERRLA, Mucous membr. moist/pink Neck: Supple, 2+ carotid pulse no bruit Respiratory: Bilaterally clear breath sounds, symmetrical chest wall movement, on RA Cardiovascular: Regular rate and rhythm, S1 S2, no murmur noted Gastrointestinal: positive bowel sounds, ND/NT, soft and benign on palpation Musculoskeletal: No tenderness, Right foot dressing C/D/I, 2+ peripheral pulses, 1+ RLE pulse Integumentary: Other (Wound to the plantar aspect of the right foot, erythema, swelling of the right foot), maculopapular pruritic rash to abdomen Neurological: Normal speech, Normal tone, Normal affect, Other (Right foot drop noted) Vitals Reviewed Assessment: Wound plantar aspect right foot, right lower extremity cellulitis Right foot drop Hypertension Chronic pain GERD Plan: Wound plantar aspect right foot, right lower extremity cellulitis Right foot drop General surgeryDr. Valenzuela consulted, follows her in wound healing, incision and drainage 01/30 Continue antibiotics vancomycin/merrem (end date 02/14)-PICC Antibiotics per infectious disease-concern for deep wound with exposed tendon may require prolonged IV antibiotic therapy Right foot drop from previous spinal injection Blood culture NGTD- completed 01/29 wound culture ESBL, 01/30 Wound culture ESBL and MRSA- no anerobe growth bactroban nasal ointment BID x 5days completed Working with PT Cannot obtain MRI to rule out osteomyelitis given chronic pain/pain pump in place Continue vancomycin/Merrem through 02/14-Dr. Mancini to follow antibiotics Appointment with Dr. Valenzuela on 02/13 to determine if further duration is required or PICC can be removed Hypertension BP is stable- continues Resume when blood pressure becomes more persistently elevated Takes amlodipine, metoprolol at home Chronic pain Has morphine pain pump in place Previously had spinal stimulator that has since been removed GERD Continue Carafate, Dexilant DVT PPX: Lovenox Code status: Full Discharge Plan: LTAC, Hair
[2024-02-09] MEDS: NA CHLORIDE 0.9% 250 ML ONE (20:26)
[2024-02-09] MEDS: LIDOCAINE 4% PATCH TD PRN (22:06)
[2024-02-09] MEDS: MELATONIN 5 MG TABLET PO PRN (22:07)
[2024-02-10 10:11] VITALS: O2SAT 94
[2024-02-10 10:35] VITALS: BP 124/61; TEMP 97.5
--- NOTE | 2024-02-10 12:37 | P.DS ---
Admission Date: 01/30/24 Discharge Date: 02/10/24 Disposition: ID HOME/HOME HEALTH CARE Discharge Condition: GOOD Reason for Admission: Right lower extremity wound, cellulitis Consultations: Dr. Valenzuela-surgery Dr. Atkins Infectious disease Brief History of Present Illness: 58-year-old female with history of hypertension, hyperlipidemia, chronic pain, GERD, right foot drop presents to the emergency department with chief complaint of concern for infection of right foot. She follows Dr. Valenzuela with wound healing, had a brace for her right sided foot drop which she believes has been rubbing her foot wrong. She was last seen 5 days ago and wound healing and foot was looking good, last 3 days she is noticed increased erythema, swelling and worsening of the foot wound especially on the plantar aspect. She was evaluated in the emergency department her labs are significant for white blood cell count of 12.5 sodium 133 x-ray of the foot was obtained which revealed soft tissue swelling without acute osseous abnormality. Only SIRS criteria present currently is leukocytosis, she did have some borderline low blood pressures but did respond to IV fluids. She will be admitted for further evaluation and management of her right lower extremity cellulitis/wound. She did receive 30 cc/kg IV fluid bolus in ED as well as vancomycin. Lactate is less than 2. Hospital Course: Physician discharge instructions Patient was admitted to the hospital for right lower extremity wound/cellulitis. She had debridement of her wound performed on 02/[address] Valenzuela. Her wound cultures grew Proteus Mirabella's ESBL and MRSA. Infectious disease was consulted who recommended a total of 2 weeks of IV antibiotics with meropenem, vancomycin. Initially an attempt was made to place patient in LTAC for hyperbaric treatment. LTAC was denied and patient wound continue to improve with more conservative measures. We were unable to obtain an MRI of her foot due to the presence of her pain pump, no clinical evidence of osteomyelitis. At discharge home antibiotics were arranged, PICC line is in place. Continue meropenem, vancomycin through 02/15/2024 with use of infusion company/home health Please follow-up with Dr. Valenzuela on 02/13 to determine if additional duration of antibiotics required for your wound Continue other home medications as prescribed Please follow-up with your primary care doctor in 1 to 2 weeks Assessment: Wound plantar aspect right foot, right lower extremity cellulitis Right foot drop Hypertension Chronic pain GERD Vital Signs/Physical Exam: Temp Pulse Resp BP Pulse Ox 97.5 F 59 16 124/61 94 02/10/24 08:00 02/10/24 08:00 02/10/24 08:00 02/10/24 08:00 02/10/24 08:00 General: Alert, In no apparent distress, Oriented x3 HEENT: Atraumatic, PERRLA, EOMI Neck: Supple, JVD not distended Respiratory: Clear to auscultation bilaterally, Normal air movement Cardiovascular: Regular rate/rhythm, Normal S1 S2 Gastrointestinal: Normal bowel sounds Musculoskeletal: No tenderness Integumentary: Pressure ulcer (RLE) Neurological: Normal speech, Normal tone Laboratory Data at Discharge: WBC 7.80 thou/uL (4.3-10.9) 02/07/24 15:34 Hgb 11.4 g/dL (12.0-15.0) L 02/07/24 15:34 Hct 34.1 % (36.0-45.0) L 02/07/24 15:34 Plt Count 205 thou/uL (152-406) 02/07/24 15:34 PT 12.9 SECONDS (9.5-12.5) H 01/30/24 13:00 INR 1.18 01/30/24 13:00 APTT 33.7 SECONDS (24.3-36.9) 01/30/24 13:00 Sodium Cancelled 02/07/24 Unknown Potassium Cancelled 02/07/24 Unknown BUN Cancelled 02/07/24 Unknown Creatinine Cancelled 02/07/24 Unknown Glucose Cancelled 02/07/24 Unknown Phosphorus 3.0 mg/dL (2.5-4.9) 02/07/24 05:05 Total Bilirubin 0.3 mg/dL (0.2-1.0) 02/04/24 06:20 AST 45 U/L (15-37) H 02/04/24 06:20 ALT 55 U/L (13-56) 02/04/24 06:20 Alkaline Phosphatase 74 U/L (45-117) 02/04/24 06:20 Home Medications: Dexlansoprazole [Dexlansoprazole Dr] 60 mg PO DAILY 09/06/22 Sucralfate [Carafate*] 1 tab PO DAILY 09/06/22 Fluoxetine HCl [Prozac] 80 mg PO DAILY 09/16/22 Gabapentin 600 mg PO QID 10/06/22 Topiramate 50 mg PO BID 10/06/22 Amlodipine [Norvasc*] 10 mg PO DAILY #30 tab 10/12/22 Metoprolol Tartrate [Lopressor*] 50 mg PO BID #60 tab 10/12/22 Lidocaine [Lidocaine Pain Relief] 1 patch TD DAILY PRN 01/30/24 Trazodone [Desyrel*] 50 mg PO DAILY 01/30/24 Physician Discharge Instructions: Physician discharge instructions Patient was admitted to the hospital for right lower extremity wound/cellulitis. She had debridement of her wound performed on 02/[address] Valenuzela. Her wound cultures grew Proteus Mirabella's ESBL and MRSA. Infectious disease was consulted who recommended a total of 2 weeks of IV antibiotics with meropenem, vancomycin. Initially an attempt was made to place patient in LTAC for hyperbaric treatment. LTAC was denied and patient wound continue to improve with more conservative measures. We were unable to obtain an MRI of her foot due to the presence of her pain pump, no clinical evidence of osteomyelitis. At discharge home antibiotics were arranged, PICC line is in place. Continue meropenem, vancomycin through 02/15/2024 with use of infusion company/home health Please follow-up with Dr. Valenzuela on 02/13 to determine if additional duration of antibiotics required for your wound Continue other home medications as prescribed Please follow-up with your primary care doctor in 1 to 2 weeks IV antibiotic/home infusion company: [id number] , [place] [address] P [phone] F Follow up appt with Dr. Valenzuela 02/14/24 at 830am [address] [place] [address] [address], [address] [place] [address] 1. Please call and schedule a follow-up appointment with your PCP, Dr. Lopez in 3-5 days - Please follow-up with your PCP for medication refills/adjustments 2. Please call and schedule a follow-up appointment with Dr. Valenzuela in 3-5 days for continued wound care. 3. Laboratory work will be done two times a week and the results will be sent to your PCP (Dr. Lopez), A message was given to the studio receptionist of his office to be watching for those results. Please call and inquire about the results to keep the office aware of them. 4. Continue regular diet 5. please use fall precautions Santyl with wet-to-dry normal saline dressing changes daily Please anterior and posterior aspect of the ankle and heel Follow-up in wound center next Tuesday in my clinic, call for appointment Diet: AHA Activity: Fall precautions Followup: Henry Lopez MD [Primary Care Provider] - 2-3 Days Hans Valenzuela MD [ACTIVE - CAN ADMIT] - 02/14/24 8:30 am Time spent managing pt's care (in minutes): 30
== END 2024-02-10 10:45 | disposition home health service (06) | DRG 571 ==
LOC: ER 12:02 → ERHOLD 15:23 → 3RD-ICU 16:29 → 4TH 02-03 21:50
PROVIDERS: ADMIT Hospitalist; ATTEND Hospitalist
PROC: 0JBQ0ZZ Excision of Right Foot Subcutaneous Tissue and Fascia, Open Approach (ICD-10-PCS; principal; 2024-01-31 09:30)
PROC: 02HV33Z Insertion of Infusion Device into Superior Vena Cava, Percutaneous Approach (ICD-10-PCS; 2024-02-01)
DX: L03.115 Cellulitis of right lower limb (principal); Z16.12 Extended spectrum beta lactamase (ESBL) resistance; E78.5 Hyperlipidemia, unspecified; I10 Essential (primary) hypertension; M21.371 Foot drop, right foot; G89.29 Other chronic pain; M54.9 Dorsalgia, unspecified; K21.9 Gastro-esophageal reflux disease without esophagitis; F17.210 Nicotine dependence, cigarettes, uncomplicated; B95.8 Unspecified staphylococcus as the cause of diseases classified elsewhere; B96.4 Proteus (mirabilis) (morganii) as the cause of diseases classified elsewhere; Z79.899 Other long term (current) drug therapy; Z91.040 Latex allergy status; Z91.048 Other nonmedicinal substance allergy status; Z96.653 Presence of artificial knee joint, bilateral
CPT/HCPCS: 36415; 71045; 80053; 80069; 80202; 83605; 85025; 85610; 85730; 87040; 87070; 87075; 87077; 87186; 87205; 88304; 93005; 93925; 96374; 96375; 97110; 97116; 97161; 97530; 97542; 99283; J0692; J1650; J2001; J2185; J2250; J2405; J2704; J3590; J7030; J7040; J7050